=== PATIENT | male | born 1960 | race African-American/Black ===

== ENCOUNTER 2019-12-23 14:45 | Outpatient (RCR) | payer OTHER, SELFPAY ==
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
--- NOTE | 2019-12-03 08:36 | PCPTNOTE ---
Patient did not show up for scheduled appointment this date.
--- NOTE | 2019-12-17 13:36 | PCPTNOTE ---
Patient called at 7:45 am & cancelled scheduled appointment this date due to not being able to make it this morning.
--- NOTE | 2019-12-23 15:05 | PCPTNOTE ---
Patient did not show up for scheduled appointment on 12/18 and 12/23/19. Attempts were made to contact him. Left message regarding repeated no show and cancellation of remaining appt if he does not show for his appt on 12/25/19.
--- NOTE | 2019-12-24 09:28 | PCPTNOTE ---
Attending Provider: Safia Chau, RIG BUILDER Patient:Josafat Calvo Date of :1960 Patient has not returned for any further treatments since 12/11/2019, therefore he will be discharged from therapy at this time. He was a no show or cancel for 4 therapy appointments. The goals have not been achieved due to limited attended therapy visits. Thank you for referring this patient to [facility]. Please review, sign, date and return this discharge summary MINNIE. I have been updated about the patient's current status and I agree with discharge from the above service at this time. Referring Physician Date
== END 2019-12-24 10:22 | disposition home or self-care (01) ==
LOC: ANHPT 14:45
PROVIDERS: Visit Provider Nurse Practitioner Adult Health
DX: M54.16 Radiculopathy, lumbar region (principal)
CPT/HCPCS: 97110; 97112; 97140

== ENCOUNTER 2020-05-05 15:46 | Emergency (ER) | payer OTHER, SELFPAY ==
--- NOTE | ~2020-05-05 | XR_ITS ---
XR chest 2V 05/05/2020 16:41 Indication: Shortness of breath, wheezing and cough. History of emphysema. Procedure: PA and lateral views of the chest Comparison: Comparison to multiple prior studies sequentially, with oldest reviewed study dated 08/30. Findings: Heart size is normal. No focal air space disease, pulmonary edema, pleural effusion or susp ected pneumothorax. No acute osseous abnormality. Impression: 1: No acute cardiopulmonary disease. Reviewed, dictated and finalized at location A. Impression: 1: No acute cardiopulmonary disease.
[2020-05-05 15:59] VITALS: BP 140/92; PULSE 93; RESP 18; TEMP 37.1; O2SAT 97
--- NOTE | 2020-05-05 16:02 | ECG_ITS ---
Measurements Intervals [place] Rate: 92 P: 56 TX: 155 QRS: -7 QRSD: 96 T: 48 QT: 354 QTc: 439 Interpretive Statements SINUS RHYTHM BASELINE ARTIFACT- I, II, AVR, AVL, V4-V6 NORMAL ECG Electronically Signed On 05-05-2020 17:11:24 CDT by Ian Lopez D.O.
[2020-05-05 16:10] LABS: Basophils Absolute Auto 0.1 K/mm3 (0.0-0.1); Basophils Percent Auto 1.1 % (0.2-1.2); Eosinophils Absolute Auto 1.1 K/mm3 (0-0.3); Eosinophils Percent Auto 13.6 % (0-4.4); Hematocrit 43.7 % (42.0-52.0); Hemoglobin 14.5 g/dL (14.0-18.0); Immature Granulocyte Absolute 0.03 K/mm3 (0.00-0.031); Immature Granulocyte Percent A 0.4 % (0-0.5); Lymphocytes Absolute Auto 2.85 K/mm3 (0.9-3.2); Lymphocytes Percent Auto 34.3 % (18.3-44.2); Mean Corpuscular HGB Conc 33.2 g/dl (32-36); Mean Corpuscular Hemoglobin 28.4 pg (26-34); Mean Corpuscular Volume 85.5 fl (80-100); Mean Platelet Volume 9.7 fl (7.4-10.4); Monocytes Absolute Auto 0.9 K/mm3 (0.1-0.6); Monocytes Percent Auto 10.4 % (2.6-8.5); Neutrophils Absolute Auto 3.3 K/mm3 (1.3-6.7); Neutrophils Percent Auto 40.2 % (45.5-73.1); Platelet Count Result 260 k/mm3 (150-375); Red Blood Count 5.11 M/mm3 (4.6-6.20); Red Cell Distribution Width 14.2 % (11.5-14.5); White Blood Count 8.3 K/mm3 (4.5-10.0)
[2020-05-05 16:22] LABS: Blood Urea Nitrogen 10 mg/dL (9-20); Calcium 9.7 mg/dL (8.4-10.2); Carbon Dioxide 24 mmol/L (22-30); Chloride 102 mmol/L (98-107); Estimated CRCL calculation 94 ml/min; Estimated Glomerular Filt Rate > 60; Glucose 111 mg/dL (75-110); Potassium 4.1 mmol/L (3.4-5.0); Sodium 136 mmol/L (137-145)
--- NOTE | 2020-05-05 16:31 | ED.SOB ---
HPI - SOB/Dyspnea General Chief Complaint: Shortness of Breath/Dyspnea Stated Complaint: sob Time Seen by Provider: 05/05/20 16:28 History of Present Illness HPI Narrative: Patient presents for increasing shortness of breath over the last couple days and weeks. He has been diagnosed with emphysema and COPD. He is not yet on home oxygen. He has test scheduled for his leaky valve of his heart, and for sleep apnea in the next couple weeks. He wheezes and coughs on a daily basis. He denies fever chills or sweats. He does not have a sleeping partner but he knows that he snores because he is awoken himself with snoring. He no longer works and says that he is disabled. His shortness of breath is worse when he lies down. He has not been told that he has congestive heart failure, but his med list includes Lasix and Spironolactone. He does have hypertension but not diabetes. MD elicited complaint: shortness of breath and cough Pertinent past history: COPD Onset (ago): week(s) Timing: constant and progressively worsening Severity: severe Exacerbating factors: lying flat Relieving factors: nothing Known history of: COPD Associated symptoms: cough, wheezing, sputum production and orthopnea Related Data Home Medications Medication Instructions Recorded Confirmed acetaminophen-codeine tablet 05/05/20 albuterol sulfate INHALATION 05/05/20 amlodipine 05/05/20 budesonide-formoterol [Symbicort] INHALATION 05/05/20 carvedilol 05/05/20 dextromethorphan-guaifenesin 5 ml PO Q4-6H PRN 05/05/20 fluticasone propionate INTRANASAL 05/05/20 furosemide 05/05/20 gabapentin 05/05/20 hydroxyzine pamoate 05/05/20 ibuprofen 05/05/20 lamotrigine 05/05/20 latanoprost 1 drp OPHTHALMIC (EYE) DAILY 05/05/20 meloxicam [Mobic] 7.5 mg PO DAILY 05/05/20 montelukast mg 05/05/20 nicotine [Nicoderm CQ] 05/05/20 omeprazole 05/05/20 pseudoephedrine-guaifenesin 1 tablet PO BID PRN 05/05/20 [Mucinex D] spironolactone 50 mg PO DAILY 07/07/20 tamsulosin mg PO 05/05/20 triamcinolone acetonide TOPICAL 05/05/20 ziprasidone HCl 05/05/20 Allergies Allergy/AdvReac Type Severity Reaction Status Date / Time lisinopril Allergy Severe ANGIOEDEMA Verified 05/05/20 16:01 Penicillins Allergy Unknown Swelling Verified 05/05/20 16:01 Review of Systems Review of Systems: Narrative: CONSTITUTIONAL: Denies fever, chills, or sweats. EYES: Denies visual changes, redness, or discharge. ENT: Denies rhinorrhea, congestion, sore throat, or otalgia. CARDIOVASCULAR: Denies chest pain, palpitations, or edema. RESPIRATORY: He has cough and dyspnea. GASTROINTESTINAL: Denies abdominal pain, nausea, vomiting, or diarrhea. GENITOURINARY: Denies dysuria or hematuria. SKIN: Denies rash or itching. MUSCULOSKELETAL: Denies back pain, joint pain, or myalgia. NEUROLOGIC: Denies headache, numbness, or weakness. PSYCHIATRIC: Denies anxiety or depression. [facility] Past Medical History Medical History Arthritis Asthma Bronchitis Cardiomyopathy COPD (chronic obstructive pulmonary disease) Glaucoma HTN (hypertension) Surgical History Surgical History History of knee replacement procedure of right knee Social History Social History Smoking status: Current every day smoker Alcohol intake: current Substance use: current Substance use type: marijuana Gender identity (if verbalized by the patient): Male Exam Narrative: Exam Narrative: GENERAL: Well-appearing, well-nourished, and in no acute distress. Charming. HEAD: Normocephalic, atraumatic. EYES: PERRLA and EOMI. ENT: Nares clear, no rhinorrhea or epistaxis. Mucous membranes moist. NECK: Supple. CHEST: Scattered wheezes. No respiratory distress. HEART: Regular rate and rhythm. No murmur heard. Normal peripheral pulses. ABDOMEN: Soft, nontend
[2020-05-05] MEDS: ALBUTEROL SULFATE NEB 2.5 MG/3 ML INH 1.25 MG INHALATION (16:48)
[2020-05-05 16:50] VITALS: PULSE 87; RESP 16
[2020-05-05] MEDS: methylPREDNISolone SOD SUCC 125 MG VIAL IV PUSH (16:51)
[2020-05-05 16:55] VITALS: PULSE 89; RESP 17
[2020-05-05 17:42] VITALS: BP 133/85; PULSE 89; RESP 17; O2SAT 24
[2020-05-05 17:46] LABS: NT Pro B Type Natriuretic Pept 102 PG/ML (5-100); Troponin I < 0.012 ng/mL (0.000-0.034)
[2020-05-05 18:46] VITALS: BP 130/88; PULSE 85; RESP 23; O2SAT 94
== END 2020-05-05 18:58 | disposition home or self-care (01) ==
PROVIDERS: Emergency Provider Emergency Medicine
DX: J44.1 Chronic obstructive pulmonary disease with (acute) exacerbation (principal); F17.200 Nicotine dependence, unspecified, uncomplicated; G47.30 Sleep apnea, unspecified; I38 Endocarditis, valve unspecified; I10 Essential (primary) hypertension; H40.9 Unspecified glaucoma; M19.90 Unspecified osteoarthritis, unspecified site; Z96.651 Presence of right artificial knee joint
CPT/HCPCS: 36415; 71046; 80048; 83880; 84484; 85025; 93005; 94640; 96374; 99284; J2930

== ENCOUNTER 2021-10-02 09:50 | Emergency (ER) | payer OTHER, SELFPAY ==
[2021-10-02 10:02] VITALS: BP 145/87; PULSE 79; RESP 14; TEMP 36.9; O2SAT 98
--- NOTE | 2021-10-02 12:29 | PC.NURSE ---
pt. called for triage no answer.
== END 2021-10-03 01:47 | disposition left against medical advice (07) ==
DX: R06.02 Shortness of breath (principal)
CPT/HCPCS: 99199

== ENCOUNTER 2024-03-01 08:11 | Outpatient (CLI) | payer OTHER, SELFPAY ==
--- NOTE | ~2024-03-01 | CT_ITS ---
CT Scan of the Chest without Contrast: Clinical Indication: Lung cancer screening, nicotine dependence Technique: Contiguous sections were acquired throughout the chest without intravenous contrast. Dose reduction technique was used on this scan by utilizing automated exposure control and iterative recon struction technique. The dose-length product (DLP) was 182.10 mGy-cm. Findings: Questionable fullness of left hilum. No other abnormality seen in the mediastinum identified. There is no evidence of pleural or pericardial effusion. There is minimal diffuse subpleural reticulation. No pulmonary nodule identified. Images through the upper abdomen reveal no abnormalities. There is DISH of the thoracic spine. Impression: Lung RADS 1-S: Negative. 12 month follow-up screening CT advised. Possible fullness of left hilum. Enlarged lymph node or mass lesion not completely excluded, however this could be due to prominent vascular structures. Consider contrast-enhanced chest CT to confirm or exclude abnormal mass lesion/lymph node. Reviewed, dictated and finalized at [facility]. Impression: Lung RADS 1-S: Negative. 12 month follow-up screening CT advised. Possible fullness of left hilum. Enlarged lymph node or mass lesion not complet josh excluded, however this could be due to prominent vascular structures. Consi cristobal contrast-enhanced chest CT to confirm or exclude abnormal mass lesion/lymph node.
--- NOTE | 2024-03-01 14:27 | WPDSIXMINUTE ---
Six Minute Walk Procedure Procedure Performed Pulmonary Stress Test (6 min walk) Six Minute Walk Six Minute Walk: This is a 6 minute walk test. The test was performed and interpreted in accordance with the 2014 ERS/ATS task force guidelines. Findings: The patient's resting room air oxygen saturation measured by pulse oximetry was 95% and heart rate was 95 bpm. Patient ambulated for 366 meters and oxygen saturation remained 95 to 96%. Heart rate at the end of the study was 98 bpm. The patient did not qualify for supplemental oxygen at rest or with ambulation. There are no prior studies for comparison.
--- NOTE | 2024-03-01 14:28 | WPDPFTINT ---
PFT Procedure Performed PFT Procedure Performed Spirometry with Pre/Post Bronchodilator Plethysmography (Lung Vol) Diffusing Cap (DLCO) Flow Vol Loop PFT Interpretation This is a pulmonary function test with pre and post-bronchodilator spirometry, plethysmography and diffusing capacity. The test was performed and results interpreted in accordance with the 2019 and 2005 ATS/ERS Task Force guidelines respectively using the Global Lung Function Initiative-2012 reference equations. Patient demonstrated good effort and cooperation. Reproducibility criteria were met. The quality of the pre bronchodilator spirometry maneuver was Grade B and post bronchodilator spirometry maneuver was Grade B. Findings: Spirometry: The contour the inspiratory and expiratory flow tracing are normal. The pre bronchodilator FVC is 3.45 L, 93% predicted. The pre bronchodilator FEV1 is 2.44 L, 84% predicted. The pre bronchodilator FEV1: FVC ratio 71%. The post bronchodilator FVC is 3.15 L, representing a 9% decrease. The post bronchodilator FEV1 is 2.33 L, representing a 5% decrease. The post bronchodilator FEV1: FVC ratio 74%. Plethysmography: The total lung capacity is 6.43 L, 108% predicted. The functional residual capacity is 2.74 L, 84% predicted. The residual volume is 2.71 L, 131% predicted. Diffusing capacity: The diffusing capacity unadjusted for hemoglobin and carboxyhemoglobin is 20.4, 74% predicted. The diffusing capacity adjusted for alveolar volume is 4.05, 96% predicted. Impression: The spirometry is normal without evidence of an obstructive abnormality. There is no significant improvement after inhaling a single dose of albuterol. The lung volumes are normal. The diffusing capacity is normal. There are no prior studies for comparison
== END 2024-03-01 08:12 | disposition home or self-care (01) ==
LOC: ANHIMG 08:13
PROVIDERS: PCP Nurse Practitioner Family; Visit Provider Physician Assistant
DX: Z12.2 Encounter for screening for malignant neoplasm of respiratory organs (principal); J43.9 Emphysema, unspecified; Z87.891 Personal history of nicotine dependence
CPT/HCPCS: 71271; 94060; 94618; 94726; 94729

== ENCOUNTER 2024-03-04 09:18 | Outpatient (CLI) | payer OTHER, SELFPAY ==
--- NOTE | 2024-03-12 18:30 | WPDHOMESLEEP ---
Sleep Study - Home Unattended Date of Study: 03/04/24 Ordering Provider: CECILIA Coelho Interpreting Provider: Kiki Buitrago, DO Home Sleep Study Type: Watch PAT Height: 1.75 m Weight: 104.326 kg Body Mass Index: 34.0 Neck Circumference (inches): 18.5 [place]: 12 Reason for Sleep Study Daytime hypersomnia Sleep History The patient is a 63-year-old male with COPD, combined systolic and diastolic heart failure, hypertension, bipolar disorder, anxiety, GERD, cardiomyopathy, glaucoma, history of substance use and current tobacco use that had a sleep study ordered by the pulmonary group for evaluation of sleep apnea. The patient frequently awakens from sleep short of breath. He frequently awakens at night with heartburn, belching or cough. He occasionally snores but it is never loud enough others complain. He occasionally has trouble sleeping when he has a cold. He frequently wakes up gasping for air throughout the night. He rarely has breathing problems at night observed by himself or others. He constantly sweats excessively at night. He denies having heart palpitations or irregular heartbeats during the night. He occasionally falls asleep during the day but never while driving. He denies sleep paralysis and cataplexy. He denies having troubles at school or work due to sleepiness. He rarely experiences vivid dreamlike scenes upon awakening or falling asleep. He denies feeling afraid of going to sleep. He rarely has nightmares. He occasionally remembers his dreams. He frequently has thoughts racing through his mind. He frequently feels sad, depressed and anxious. He occasionally has muscular tension. He occasionally notices parts of his body jerk. He occasionally kicks during the night. He denies having crawling and aching feelings in his legs and constantly has leg pain during the night. He goes to bed at 10:00 p.m. on both weekdays and weekends. It takes him 30 minutes to fall asleep. He wakes up 3 times throughout the night to urinate and is able to fall asleep relatively quickly. He wakes up at 5:00 a.m. on both weekdays and weekends. He typically gets 6-1/2 hours of sleep per night. He will stay in bed for 5 minutes after waking up in the morning. He currently lives alone. He denies consuming any caffeinated beverages within 2 hours of bedtime. He denies engaging in physical exercise before bedtime. He will watch television before falling asleep. He will take naps in the afternoon or the evening and they are refreshing. He consumes 3 caffeinated beverages per day. He consumes alcoholic beverages once per week. He currently smokes half a pack of cigarettes per day. He denies recreational drug use. [facility] Past Medical History Medical History Arthritis Asthma Bronchitis Cardiomyopathy COPD (chronic obstructive pulmonary disease) Glaucoma HTN (hypertension) Surgical History Surgical History History of knee replacement procedure of right knee Family History Family History Father Alcoholism Hypertension Heart problem Sibling Alcoholism Hypertension Cancer Mother Cancer Hypertension Grandparent Diabetes mellitus Hypertension Heart problem Other Family history of malignant neoplasm Social History Social History Smoking packs per day: 0.50 Smoking cigarettes per day: 10.0 Smoking status: Current every day smoker Alcohol intake: current Substance use: current Substance use type: marijuana Gender identity (if verbalized by the patient): Male Medications Home Medications Medication Instructions Recorded Confirmed Type latanoprost 0.005 % eye drops 1 drp ophthalmic (eye) DAILY 05/05/20 03/11/24 History alfuzosin 10 mg tablet
[2024-03-12 18:36] VITALS: BMI 34.0
== END 2024-03-05 07:30 | disposition home or self-care (01) ==
LOC: ANHCSM 09:20
PROVIDERS: PCP Nurse Practitioner Family; Visit Provider Physician Assistant
DX: G47.10 Hypersomnia, unspecified (principal); J43.9 Emphysema, unspecified; G47.33 Obstructive sleep apnea (adult) (pediatric)
CPT/HCPCS: 95800

== ENCOUNTER 2024-04-17 09:58 | Outpatient (CLI) | payer OTHER, SELFPAY ==
--- NOTE | ~2024-04-17 | CT_ITS ---
EXAMINATION:CT diagnostic chest w con DATE: 04/17/2024 10:30 INDICATION: Left hilar mass. Personal history of nicotine dependence. TECHNIQUE: Computed tomography (CT) of the chest was performed with 75 mL Omnipaque 350 intravenous c ontrast. Automated exposure control and iterative reconstruction technique were employed. The dose-le ngth product (DLP) was 489.36 mGy-cm. COMPARISON: Chest CT 03/01/2024 FINDINGS: There is mild emphysema. There is chronic peripheral septal thickening in the lungs. No bro nchiectasis or honeycombing. No pleural effusion. The heart size is normal. There are coronary artery calcifications. No pericardial effusion. There is mediastinal and bilateral hilar lymphadenopathy. F or example, a left hilar juan mass measures 4.6 x 2.6 cm. There is mass effect on the pulmonary lenny suzette at the left hilum. Calcifications in the liver and spleen are consistent with old granulomatous disease. There is a 10 mm cyst in the liver. There is a 3.4 cm cyst in left kidney. There is mild mayda ateral gynecomastia. There are old healed left rib fractures. There is severe mid thoracic spondylosi s. There are bridging endplate osteophytes at multiple levels in the spine, consistent with diffuse i diopathic skeletal hyperostosis (DISH). IMPRESSION: 1. Bilateral hilar and mediastinal lymphadenopathy, consistent with metastatic disease. Reviewed, dictated and finalized at location A.
== END 2024-04-17 09:59 | disposition home or self-care (01) ==
PROVIDERS: PCP Family Medicine Adolescent Medicine; Visit Provider Physician Assistant
DX: R93.89 Abnormal findings on diagnostic imaging of other specified body structures (principal); Z87.891 Personal history of nicotine dependence; R59.0 Localized enlarged lymph nodes
CPT/HCPCS: 71260; Q9967

== ENCOUNTER 2024-05-30 08:04 | Outpatient (CLI) | payer OTHER, SELFPAY ==
--- NOTE | 2024-05-30 08:17 | ECHO_ITS ---
Patient Info Name: Josafat Calvo Age: 63 years : 1960 Gender: Male Ht: 69 in Wt: 223 lbs BSA: 2.25 m2 HR: 78 bpm BP: 139 / 92 mmHg Technical Quality: Good Exam Date: 05/30/2024 8:30 AM Exam Location: Echo Lab Patient Status: Outpatient Admit Date: 05/30/2024 Staff Ordering Physician: Ian Lopez DO Portal Administrator: David Mallory RDCS Attending Provider: Ian Lopez DO Referring Physician: John HAMILTON; Exam Type: CA echo doppler color flow Study Info Indications I34.0 - Nonrheumatic mitral (valve) insufficiency Complete two-dimensional, color flow and Doppler transthoracic echocardiogram is performed. Summary 1. Complete two-dimensional, color flow and Doppler transthoracic echocardiogram is performed. 2. Left ventricular chamber dimension is normal. 3. There is mild concentric increased left ventricular wall thickness. 4. Left ventricular systolic function is moderately globally reduced, estimated at 40-45%. 5. The left ventricular diastolic function is grade I diastolic dysfunction. 6. E/e' 9 is minimally elevated. 7. Global longitudinal strain is abnormal at -12.6%. 8. Left atrial chamber dimension is moderately enlarged. 9. There is mild aortic valve sclerosis. 10. There is moderate mitral valve regurgitation. 11. No pulmonary hypertension, estimated pulmonary arterial systolic pressure is 20 mmHg. Left Ventricle E/e' 9 is minimally elevated. Left ventricular systolic function is moderately globally reduced, estimated at 40-45%. Global longitudinal strain is abnormal at -12.6%. Left ventricular chamber dimension is normal. There is mild concentric increased left ventricular wall thickness. The left ventricular diastolic function is grade I diastolic dysfunction. Right Ventricle Right ventricular systolic function is normal and with normal TAPSE 2.0 cm. Right ventricular chamber dimension is normal. Left Atria Left atrial chamber dimension is moderately enlarged. Right Atria Right atrial chamber dimension is normal. Aortic Valve The aortic valve is trileaflet. There is mild aortic valve sclerosis. There is no aortic valve stenosis. There is no aortic valve regurgitation. Pulmonic Valve There is no pulmonic regurgitation. Mitral Valve There is no mitral valve stenosis. There is moderate mitral valve regurgitation. Tricuspid Valve There is no tricuspid valve regurgitation. No pulmonary hypertension, estimated pulmonary arterial systolic pressure is 20 mmHg. Pericardium/Pleural There is no pericardial effusion. Inferior Vena Cava Normal inferior vena cava with >50% collapse upon inspiration consistent with normal right atrial pressure, 5 mmHg. Aorta The aortic root size at the sinus of Valsalva is normal. Left Ventricular Outflow Tract Name Value Normal LVOT 2D LVOT Diameter 2.1 cm LVOT Doppler LVOT Peak Gradient 4 mmHg LVOT Mean Gradient 2 mmHg LVOT VTI 20 cm LVOT VTI/AV VTI Ratio 0.8 LVOT Stroke Volume 67 ml LVOT CO 5.3 l/min LVOT CI 2.3 l/min/m
== END 2024-05-30 08:05 | disposition home or self-care (01) ==
LOC: ANHCARD 08:05
PROVIDERS: PCP Family Medicine Adolescent Medicine; Visit Provider Internal Medicine Cardiovascular Disease
DX: I34.0 Nonrheumatic mitral (valve) insufficiency (principal)
CPT/HCPCS: 93306

== ENCOUNTER 2024-09-12 03:45 | Inpatient (IN) | payer OTHER, SELFPAY ==
[2024-09-12] VITALS (36 sets, daily range): BP systolic 117–178; BP diastolic 80–106; PULSE 80–144; RESP 15–34; TEMP 36.8; O2SAT 94–100
--- NOTE | ~2024-09-12 | CT_ITS ---
Clinical Indication: Shortness of breath, recent chemotherapy CT Scan of the Chest with Contrast: Technique: Contiguous sections were acquired throughout the chest after intravenous administration of 100 cc of Omnipaque 350. Dose reduction technique was used on this scan by utilizing automated expos ure control and iterative reconstruction technique. The dose-length product (DLP) was 570.70 mGy-cm. COMPARISON: 04/17/2024 Findings: There is no filling defect in the pulmonary arterial tree to suggest pulmonary embolus. There is no e vidence of aortic dissection or aneurysm. No pericardial effusion. No right pleural effusion. Small left pleural effusion present. There is ill-defined soft tissue mass at the left hilar region, encasing the central pulmonary vascul ar tree and narrowing these vessels, especially the left upper lobe pulmonary artery branches central ly. Precise delineation of the mass is difficult, as there is also near complete, dense consolidation /atelectasis of the left upper lobe, sparing a small portion of the lingula. There is marked narrowin g of the left upper lobe bronchus. There is patchy groundglass airspace disease throughout the right lung, there is a mild interstitial thickening. Images through the upper abdomen reveal no abnormalities. Impression: No evidence of pulmonary embolus, aortic dissection, or aortic aneurysm. Ill-defined soft tissue neoplastic mass at the left perihilar region, encasing and narrowing central left pulmonary arterial tree, especially left upper lobe branches. Precise delineation of the mass is difficult, but is probably at least stable, if not increased in size from prior exam, possibly measu ring up to approximately 6.3 x 4.3 cm in transverse dimensions. Near-complete dense consolidation of the left upper lobe, compatible with postobstructive atelectasis and/or pneumonia. There is encasement and marked narrowing/occlusion of the left upper lobe bronchus by the central soft tissue mass. Patchy groundglass airspace disease throughout the right lung with interstitial thickening. Findings could reflect pneumonia, pulmonary edema, or possibly drug reaction. Correlate clinically. Small left pleural effusion. Reviewed, dictated and finalized at location M. [employer] Impression: No evidence of pulmonary embolus, aortic dissection, or aortic aneurysm. Ill-defined soft tissue neoplastic mass at the left perihilar region, encasing and narrowing central left pulmonary arterial tree, especially left upper lobe branches. Precise delineation of the mass is difficult, but is probably at leas t stable, if not increased in size from prior exam, possibly measuring up to ap proximately 6.3 x 4.3 cm in transverse dimensions. Near-complete dense consolidation of the left upper lobe, compatible with posto bstructive atelectasis and/or pneumonia. There is encasement and marked narrowi ng/occlusion of the left upper lobe bronchus by the central soft tissue mass. Patchy groundglass airspace disease throughout the right lung with interstitial thickening. Findings could reflect pneumonia, pulmonary edema, or possibly kena g reaction. Correlate clinically. Small left pleural effusion.
--- NOTE | ~2024-09-12 | XR_ITS ---
Portable chest x-ray Comparison: 05/05/2020 Clinical History: Shortness of breath, on chemotherapy for lung cancer Findings: There is left perihilar consolidation. Minimal haziness in the lungs are otherwise. Cardi omediastinal silhouette is stable. Bones and soft tissues are unremarkable. Impression: Left perihilar consolidation. Given history, this could reflect neoplastic disease. Minimal bilateral haziness could reflect pneumonia or postradiation change. Reviewed, dictated and finalized at location M. KEN HANGER Impression: Left perihilar consolidation. Given history, this could reflect neoplastic dise ase. Minimal bilateral haziness could reflect pneumonia or postradiation change.
--- NOTE | 2024-09-12 03:54 | ECG_ITS ---
Test Date: 2024-09-12 03:59:57 Measurements Intervals [place] Rate: 84 P: 24 ME: 145 QRS: -13 QRSD: 127 T: 54 QT: 415 QTc: 493 Interpretive Statements SINUS RHYTHM POSSIBLE LEFT ATRIAL ENLARGEMENT POSSIBLE LEFT VENTRICULAR HYPERTROPHY BORDERLINE ECG No previous ECG available for comparison Electronically Signed On 09-12-2024 05:27:10 PUBLISHING MANAGER by Ian Lopez D.O.
[2024-09-12 04:04] LABS: Basophils Percent Auto 0.5 % (0.2-1.2); Eosinophils Percent Auto 1.1 % (0-4.4); Hematocrit 29.2 % (42.0-52.0); Hemoglobin 9.8 g/dL (14.0-18.0); Immature Granulocyte Absolute 0.01 K/mm3 (0.00-0.031); Immature Granulocyte Percent A 0.5 % (0-0.5); Lymphocytes Absolute Auto 0.93 K/mm3 (0.9-3.2); Lymphocytes Percent Auto 49.7 % (18.3-44.2); Mean Corpuscular HGB Conc 33.6 g/dl (32-36); Mean Corpuscular Hemoglobin 27.7 pg (26-34); Mean Corpuscular Volume 82.5 fl (80-100); Mean Platelet Volume 10.1 fl (7.4-10.4); Monocytes Absolute Auto 0.1 K/mm3 (0.1-0.6); Monocytes Percent Auto 7.5 % (2.6-8.5); Neutrophils Absolute Auto 0.8 K/mm3 (1.3-6.7); Neutrophils Percent Auto 40.7 % (45.5-73.1); Nucleated Red Blood Cells Perc 1.1 % (0.0-0.2); Platelet Count Result 121 k/mm3 (150-375); Red Blood Count 3.54 M/mm3 (4.6-6.20); Red Cell Distribution Width 16.2 % (11.5-14.5)
[2024-09-12 04:11] LABS: White Blood Count 1.9 K/mm3 (4.5-10.0)
[2024-09-12 04:15] LABS: Alanine Aminotransferase 40 U/L (6-50); Albumin Level 3.4 g/dL (3.5-5.1); Alkaline Phosphatase 145 U/L (38-126); Anion Gap 9 mmol/L (4-12); Aspartate Amino Transferase 73 U/L (17-59); Bilirubin,Total 0.2 mg/dL (0.2-1.3); Blood Urea Nitrogen 11 mg/dL (9-20); Calcium 8.9 mg/dL (8.4-10.2); Carbon Dioxide 24 mmol/L (22-30); Chloride 101 mmol/L (98-107); Estimated CRCL calculation 103 ml/min; Estimated Glomerular Filt Rate > 60; Glucose 148 mg/dL (65-110); Potassium 4.1 mmol/L (3.4-5.0); Sodium 134 mmol/L (137-145)
[2024-09-12] MEDS: IPRATROPIUM 0.5 MG/ALBUTEROL SULFATE 2.5 MG AMPUL.NEB 3 ML INHALATION ×4 (04:25→21:24)
[2024-09-12 04:51] LABS: Lactic Acid Reflex 2.1 mmol/L (0.7-2.0)
[2024-09-12 05:18] LABS: Influenza A QL RT-PCR Negative (Negative); Influenza B QL RT-PCR Negative (Negative); RSV RNA, RT-PCR Negative (Negative); SARS-CoV-2 RNA PCR Negative (Negative)
--- NOTE | 2024-09-12 05:46 | ED_ITS ---
HPI - General Adult General Chief complaint: Asthma <Marshall Gaming MD - Last Filed: 09/13/24 06:58> Stated complaint: SOB; Hx ASTHMA & LUNG CA <Marshall Gaming MD - Last Filed: 09/13/24 06:58> Time Seen by Provider: 09/12/24 03:54 <Marshall Gaming MD - Last Filed: 09/13/24 06:58> History of Present Illness HPI narrative: patient is a 63-year-old gentleman who presents emergency department chief complaint of shortness of breath. Patient has history of lung cancer also has history of COPD is followed [place] and is undergoing chemotherapy the patient states that he woke up from sleep having shortness of breath this evening reports that he has had no fever reports no cough <Marshall Gaming MD - Last Filed: 09/13/24 06:58> Related Data Home medications: Home Medications Medication Instructions Recorded Confirmed latanoprost 0.005 % eye drops 1 drp ophthalmic (eye) DAILY 05/05/20 09/13/24 alfuzosin 10 mg tablet,extended 10 mg PO DAILY 12/12/23 09/13/24 release 24 hr aspirin 81 mg tablet,delayed 81 mg PO DAILY 12/12/23 09/13/24 release (Adult Aspirin Regimen) atorvastatin 40 mg tablet 40 mg PO DAILY 12/12/23 09/13/24 buspirone 7.5 mg tablet 7.5 mg PO BID 12/12/23 09/13/24 carvedilol 12.5 mg tablet 12.5 mg PO Q12H 12/12/23 09/13/24 eplerenone 25 mg tablet 25 mg PO DAILY 12/12/23 09/13/24 hydroxyzine pamoate 100 mg capsule 100 mg PO Q12H 12/12/23 09/13/24 lamotrigine 100 mg tablet 100 mg PO DAILY 12/12/23 09/13/24 loratadine 10 mg tablet 10 mg PO DAILY 12/12/23 09/13/24 ziprasidone HCl 80 mg capsule 80 mg PO BID 12/12/23 09/13/24 fluticasone furoate 27.5 1 spray intranasal DAILY PRN 04/30/24 09/13/24 mcg/actuation nasal Congestion spray,suspension tadalafil 20 mg tablet 20 mg PO DAILY PRN Erectile 04/30/24 09/13/24 Dysfunction acetaminophen 500 mg tablet 500 mg PO Q6H PRN Pain (Scale 09/13/24 09/13/24 Score 1-3) morphine 30 mg tablet,extended 30 mg PO Q12H 09/13/24 09/13/24 release ondansetron HCl 8 mg tablet 8 mg PO BID PRN Nausea And Vomiting 09/13/24 09/13/24 oxycodone 5 mg tablet 10 mg PO Q4H PRN Pain (Scale Score 09/13/24 09/13/24 7-10) <Marshall Gaming MD - Last Filed: 09/13/24 06:58> Allergies/adverse reactions: Allergies Allergy/AdvReac Type Severity Reaction Status Date / Time lisinopril Allergy Severe ANGIOEDEMA Verified 09/13/24 10:54 Penicillins Allergy Unknown Swelling Verified 09/13/24 10:54 <Marshall Gaming MD - Last Filed: 09/13/24 06:58> Review of Systems Review of Systems: A 10 system review of systems was completed on the patient and is negative except for what is stated in the HPI. Nursing and ancillary documentation was reviewed. <Marshall Gaming MD - Last Filed: 09/13/24 06:58> [facility], [facility] Past Medical History Medical History: Medical History Arthritis Asthma Bronchitis Cardiomyopathy COPD (chronic obstructive pulmonary disease) Glaucoma HTN (hypertension) <Marshall Gaming MD - Last Filed: 09/13/24 06:58> Surgical History Surgical History: Surgical History History of knee replacement procedure of right knee <Marshall Gaming MD - Last Filed: 09/13/24 06:58> Family History Family History: Family History (Updated 09/13/24 @ 11:22 by Manas Mccall RN) Father Alcoholism Heart problem Hypertension Sibling Alcoholism Cancer Hypertension Mother Cancer Hypertension Grandparent Diabetes mellitus Heart problem Hypertension Sibling Cancer Hypertension <Marshall Gaming MD - Last Filed: 09/13/24 06:58> Social History Social History: Social History Smoking packs per day: 1 Smoking cigarettes per day: 20.0 Years smoked: 40 Smoking pack-years: 40.00 Smoking status: Current every day smoker Tobacco type: cigarettes Alcohol intake: never Substance use: current Substance use type: marijuana Do You Feel Safe in your Home?: Yes Lack of Transportation: No Lack of Food: Never True Current Housing: I Have Housing Concerned About Future Housing: No Difficulty Paying Gas/Electric Bills: No Difficulty Paying for Meds: No Currently Unemployed: No Education: Associate Degree Difficulty w/ Childcare or Family Care: No Gender identity (if verbalized by the patient): Male Spiritual care concerns: No <Marshall Gaming MD - Last Filed: 09/13/24 06:58> Exam Narrative: GENERAL: Well-appearing, well-nourished, and in no acute distress. HEAD: Normocephalic, atraumatic. EYES: PERRLA and EOMI. ENT: Nares clear, no rhinorrhea or epistaxis. Mucous membranes moist. NECK: Supple. CHEST: Clear to auscultation. No respiratory distress. HEART: Regular rate and rhythm. No murmur heard. Normal peripheral pulses. ABDOMEN: Soft, nontender, nondistended, normal active bowel sounds. EXTREMITIES: Normal range of motion. No edema. SKIN: Warm, dry, no rash. NEURO: No focal deficits. Alert and oriented x3. PSYCH: Normal mood and affect. <Marshall Gaming MD - Last Filed: 09/13/24 06:58> Course Course Emergency Course: (Downing) 09/12/24 [id number]: Patient was requesting home antihypertensive medications as well as a laxative. while attempting to obtain his medication list to verify, he was noted to have a fast heart rate in the 140s and 150s. EKG was obtained and patient was noted to be in atrial fibrillation with rapid ventricular response. Given that we learned that he was on carvedilol, 5 mg of metoprolol IV push was given and patient's heart rate normalized. patient was given a 1 time dose of his home medications, carvedilol 12.5 and losartan 50 mg in addition to starting with a bowel regimen of stool softeners via Metamucil and MiraLax. Pharmacy called to discuss that patient had tested negative for MRSA and they recommended discontinuing the vancomycin. We discussed that he has a postobstructive pneumonia and he is leukopenic and thus the decision was made to give doxycycline p.o. to cover for atypicals. Went to bedside to evaluate patient and inform him of these updates. he verifies understanding. He states he had just received another breathing treatment approximately 2 hours prior as these have been scheduled. No other acute events during shift <Malu Downing MD - Last Filed: 09/14/24 10:32> Vital Signs Vital signs: Vital Signs Temperature 98.2 F 09/12/24 03:46 Pulse Rate 85 09/12/24 03:46 Respiratory Rate 23 H 09/12/24 03:46 Blood Pressure 139/91 H 09/12/24 03:46 Pulse Oximetry 100 09/12/24 03:46 Temperature 97.1 F L 09/14/24 04:39 Pulse Rate 80 09/14/24 08:31 Respiratory Rate 20 09/14/24 07:43 Blood Pressure 153/81 H 09/14/24 04:39 Pulse Oximetry 91 09/14/24 07:36 Oxygen Delivery Room Air 09/14/24 07:36 Fraction of Inspired Oxygen 21 09/14/24 07:36 <Marshall Gaming MD - Last Filed: 09/13/24 06:58> Vital Signs Temperature 98.2 F 09/12/24 03:46 Pulse Rate 85 09/12/24 03:46 Respiratory Rate 23 H 09/12/24 03:46 Blood Pressure 139/91 H 09/12/24 03:46 Pulse Oximetry 100 09/12/24 03:46 Temperature 97.1 F L 09/14/24 04:39 Pulse Rate 80 09/14/24 08:31 Respiratory Rate 20 09/14/24 07:43 Blood Pressure 153/81 H 09/14/24 04:39 Pulse Oximetry 91 09/14/24 07:36 Oxygen Delivery Room Air 09/14/24 07:36 Fraction of Inspired Oxygen 21 09/14/24 07:36 <Malu Downing MD - Last Filed: 09/14/24 10:32> Medical Decision Making MDM Narrative Medical decision making narrative: differential diagnosis includes pneumonia, worsening mass, pulmonary embolism, asthma, COPD CTA of the chest showed No evidence of pulmonary embolus, aortic dissection, or aortic aneurysm. Ill-defined soft tissue neoplastic mass at the left perihilar region, encasing and narrowing central left pulmonary arterial tree, especially left upper lobe branches. Precise delineation of the mass is difficult, but is probably at least stable, if not increased in size from prior exam, possibly measuring up to approximately 6.3 x 4.3 cm in transverse dimensions. Near-complete dense consolidation of the left upper lobe, compatible with postobstructive atelectasis and/or pneumonia. There is encasement and marked narrowing/occlusion of the left upper lobe bronchus by the central soft tissue mass. Patchy groundglass airspace disease throughout the right lung with interstitial thickening. Findings could reflect pneumonia, pulmonary edema, or possibly drug reaction. Correlate clinically. Small left pleural effusion laboratory studies showed a white count of 1.9 with a absolute neutrophil count of 0.8 lactic acid was 2.1 COVID flu and RSV are negative the case was discussed with Dr. Tang of the oncology service at [place] and the patient was accepted to the oncology service The patient has been waiting for a bed at [facility] and we are unsure of exactly how long it will take they have said this could be several days on the most recent Update. we will admit the patient for observation locally until a bed becomes available <Marshall Gaming MD - Last Filed: 09/13/24 06:58> Vital Signs Vital Signs: Vital Signs Temperature 98.2 F 09/12/24 03:46 Pulse Rate 85 09/12/24 03:46 Respiratory Rate 23 H 09/12/24 03:46 Blood Pressure 139/91 H 09/12/24 03:46 Pulse Oximetry 100 09/12/24 03:46 Temperature 97.1 F L 09/14/24 04:39 Pulse Rate 80 09/14/24 08:31 Respiratory Rate 20 09/14/24 07:43 Blood Pressure 153/81 H 09/14/24 04:39 Pulse Oximetry 91 09/14/24 07:36 Oxygen Delivery Room Air 09/14/24 07:36 Fraction of Inspired Oxygen 21 09/14/24 07:36 <Marshall Gaming MD - Last Filed: 09/13/24 06:58> Vital Signs Temperature 98.2 F 09/12/24 03:46 Pulse Rate 85 09/12/24 03:46 Respiratory Rate 23 H 09/12/24 03:46 Blood Pressure 139/91 H 09/12/24 03:46 Pulse Oximetry 100 09/12/24 03:46 Temperature 97.1 F L 09/14/24 04:39 Pulse Rate 80 09/14/24 08:31 Respiratory Rate 20 09/14/24 07:43 Blood Pressure 153/81 H 09/14/24 04:39 Pulse Oximetry 91 09/14/24 07:36 Oxygen Delivery Room Air 09/14/24 07:36 Fraction of Inspired Oxygen 21 09/14/24 07:36 <Malu Downing MD - Last Filed: 09/14/24 10:32> Lab Data Result diagrams: 09/14/24 05:05 09/14/24 05:05 <Marshall Gaming MD - Last Filed: 09/13/24 06:58> Labs: Lab Results 09/12/24 09/12/24 09/12/24 Range/Units 03:56 03:57 04:28 WBC 1.9 L* (4.5-10.0) K/mm3 RBC 3.54 L (4.6-6.20) M/mm3 Hgb 9.8 L D (14.0-18.0) g/dL Hct 29.2 L (42.0-52.0) % MCV 82.5 (80-100) fl MCH 27.7 (26-34) pg MCHC 33.6 (32-36) g/dl RDW 16.2 H (11.5-14.5) % Plt Count 121 L D (150-375) k/mm3 MPV 10.1 (7.4-10.4) fl Immature Gran % (Auto) 0.5 (0-0.5) % Neut % (Auto) 40.7 L (45.5-73.1) % Lymph % (Auto) 49.7 H (18.3-44.2) % [place] % (Auto) 7.5 (2.6-8.5) % Eos % (Auto) 1.1 (0-4.4) % Baso % (Auto) 0.5 (0.2-1.2) % Lymph # (Auto) 0.93 (0.9-3.2) K/mm3 [place] # (Auto) 0.1 (0.1-0.6) K/mm3 Eos # (Auto) 0.0 (0-0.3) K/mm3 Baso # (Auto) 0.0 (0.0-0.1) K/mm3 Abs Immat Gran (auto) 0.01 (0.00-0.031) K/mm3 Absolute Neuts (auto) 0.8 L (1.3-6.7) K/mm3 Absolute Nucleated RBC 0.020 H (0.0-0.012) K/mm3 Nucleated RBC % 1.1 H (0.0-0.2) % PT 16.0 H (11.1-14.7) Seconds INR 1.2 APTT 26.6 (22.3-36.8) Seconds Sodium 134 L (137-145) mmol/L Potassium 4.1 (3.4-5.0) mmol/L Chloride 101 (98-107) mmol/L Carbon Dioxide 24 (22-30) mmol/L Anion Gap 9 (4-12) mmol/L BUN 11 (9-20) mg/dL Creatinine 0.70 (0.7-1.3) mg/dL Estim Creat Clear Calc 103 ml/min Estimated GFR > 60 (59 - ) Glucose 148 H (65-110) mg/dL Lactic Acid 2.1 H (0.7-2.0) mmol/L Calcium 8.9 (8.4-10.2) mg/dL Total Bilirubin 0.2 (0.2-1.3) mg/dL AST 73 H (17-59) U/L ALT 40 (6-50) U/L Alkaline Phosphatase 145 H (38-126) U/L Troponin I < 0.012 (0.000-0.034) ng/mL NT-Pro-B Natriuret Pep 521 H (19.9-100) pg/mL Total Protein 7.0 (6.3-8.2) g/dL Albumin 3.4 L (3.5-5.1) g/dL Urine Color (Yellow) Urine Appearance (Clear) Urine pH (5.0-9.0) Ur Specific [place] (1.001-1.035) Urine Protein (Negative) mg/dL Urine Glucose (UA) (Negative) mg/dL Urine Ketones (Negative) mg/dL Ur Blood (Man) (Negative) Urine Nitrate (Negative) Urine Bilirubin (Negative) Urine Urobilinogen (<2.0) mg/dL Leukocyte Esterase Rfl (Negative) LOU/UL Nasal MRSA (PCR) (NOT DETECTE) Influenza A (RT-PCR) Negative (Negative) Influenza B (RT-PCR) Negative (Negative) RSV (RT-PCR) Negative (Negative) SARS-CoV-2 RNA (RT-PCR) Negative (Negative) 09/12/24 09/12/24 09/13/24 Range/Units 07:16 07:49 06:31 WBC 1.5 L* (4.5-10.0) K/mm3 RBC 3.36 L (4.6-6.20) M/mm3 Hgb 9.2 L (14.0-18.0) g/dL Hct 27.3 L (42.0-52.0) % MCV 81.3 (80-100) fl MCH 27.4 (26-34) pg MCHC 33.7 (32-36) g/dl RDW 16.1 H (11.5-14.5) % Plt Count 110 L (150-375) k/mm3 MPV 9.1 (7.4-10.4) fl Immature Gran % (Auto) 0.0 (0-0.5) % Neut % (Auto) 46.3 (45.5-73.1) % Lymph % (Auto) 34.0 (18.3-44.2) % [place] % (Auto) 15.6 H (2.6-8.5) % Eos % (Auto) 2.7 (0-4.4) % Baso % (Auto) 1.4 H (0.2-1.2) % Lymph # (Auto) 0.50 L (0.9-3.2) K/mm3 [place] # (Auto) 0.2 (0.1-0.6) K/mm3 Eos # (Auto) 0.0 (0-0.3) K/mm3 Baso # (Auto) 0.0 (0.0-0.1) K/mm3 Abs Immat Gran (auto) 0.00 (0.00-0.031) K/mm3 Absolute Neuts (auto) 0.7 L (1.3-6.7) K/mm3 Absolute Nucleated RBC 0.020 H (0.0-0.012) K/mm3 Nucleated RBC % 1.4 H (0.0-0.2) % PT (11.1-14.7) Seconds INR APTT (22.3-36.8) Seconds Sodium 132 L (137-145) mmol/L Potassium 4.0 (3.4-5.0) mmol/L Chloride 101 (98-107) mmol/L Carbon Dioxide 29 (22-30) mmol/L Anion Gap 2 L (4-12) mmol/L BUN 7 L (9-20) mg/dL Creatinine 0.60 L (0.7-1.3) mg/dL Estim Creat Clear Calc 119 ml/min Estimated GFR > 60 (59 - ) Glucose 99 (65-110) mg/dL Lactic Acid 2.4 H 0.9 (0.7-2.0) mmol/L Calcium 8.7 (8.4-10.2) mg/dL Total Bilirubin 0.3 (0.2-1.3) mg/dL AST 23 (17-59) U/L ALT 33 (6-50) U/L Alkaline Phosphatase 153 H (38-126) U/L Troponin I 0.015 D < 0.012 (0.000-0.034) ng/mL NT-Pro-B Natriuret Pep 1770 H (19.9-100) pg/mL Total Protein 6.0 L (6.3-8.2) g/dL Albumin 3.1 L (3.5-5.1) g/dL Urine Color Yellow (Yellow) Urine Appearance Clear (Clear) Urine pH 6.0 (5.0-9.0) Ur Specific [place] 1.021 (1.001-1.035) Urine Protein Negative (Negative) mg/dL Urine Glucose (UA) Negative (Negative) mg/dL Urine Ketones Negative (Negative) mg/dL Ur Blood (Man) Negative (Negative) Urine Nitrate Negative (Negative) Urine Bilirubin Negative (Negative) Urine Urobilinogen 0.2 (<2.0) mg/dL Leukocyte Esterase Rfl Negative (Negative) LOU/UL Nasal MRSA (PCR) Not detected (NOT DETECTE) Influenza A (RT-PCR) (Negative) Influenza B (RT-PCR) (Negative) RSV (RT-PCR) (Negative) SARS-CoV-2 RNA (RT-PCR) (Negative) <Marshall Gaming MD - Last Filed: 09/13/24 06:58> Lab Results 09/12/24 09/12/24 09/12/24 Range/Units 03:56 03:57 04:28 WBC 1.9 L* (4.5-10.0) K/mm3 RBC 3.54 L (4.6-6.20) M/mm3 Hgb 9.8 L D (14.0-18.0) g/dL Hct 29.2 L (42.0-52.0) % MCV 82.5 (80-100) fl MCH 27.7 (26-34) pg MCHC 33.6 (32-36) g/dl RDW 16.2 H (11.5-14.5) % Plt Count 121 L D (150-375) k/mm3 MPV 10.1 (7.4-10.4) fl Immature Gran % (Auto) 0.5 (0-0.5) % Neut % (Auto) 40.7 L (45.5-73.1) % Lymph % (Auto) 49.7 H (18.3-44.2) % [place] % (Auto) 7.5 (2.6-8.5) % Eos % (Auto) 1.1 (0-4.4) % Baso % (Auto) 0.5 (0.2-1.2) % Lymph # (Auto) 0.93 (0.9-3.2) K/mm3 [place] # (Auto) 0.1 (0.1-0.6) K/mm3 Eos # (Auto) 0.0 (0-0.3) K/mm3 Baso # (Auto) 0.0 (0.0-0.1) K/mm3 Abs Immat Gran (auto) 0.01 (0.00-0.031) K/mm3 Absolute Neuts (auto) 0.8 L (1.3-6.7) K/mm3 Absolute Nucleated RBC 0.020 H (0.0-0.012) K/mm3 Nucleated RBC % 1.1 H (0.0-0.2) % PT 16.0 H (11.1-14.7) Seconds INR 1.2 APTT 26.6 (22.3-36.8) Seconds Sodium 134 L (137-145) mmol/L Potassium 4.1 (3.4-5.0) mmol/L Chloride 101 (98-107) mmol/L Carbon Dioxide 24 (22-30) mmol/L Anion Gap 9 (4-12) mmol/L BUN 11 (9-20) mg/dL Creatinine 0.70 (0.7-1.3) mg/dL Estim Creat Clear Calc 103 ml/min Estimated GFR > 60 (59 - ) Glucose 148 H (65-110) mg/dL Lactic Acid 2.1 H (0.7-2.0) mmol/L Calcium 8.9 (8.4-10.2) mg/dL Total Bilirubin 0.2 (0.2-1.3) mg/dL AST 73 H (17-59) U/L ALT 40 (6-50) U/L Alkaline Phosphatase 145 H (38-126) U/L Troponin I < 0.012 (0.000-0.034) ng/mL NT-Pro-B Natriuret Pep 521 H (19.9-100) pg/mL Total Protein 7.0 (6.3-8.2) g/dL Albumin 3.4 L (3.5-5.1) g/dL Urine Color (Yellow) Urine Appearance (Clear) Urine pH (5.0-9.0) Ur Specific [place] (1.001-1.035) Urine Protein (Negative) mg/dL Urine Glucose (UA) (Negative) mg/dL Urine Ketones (Negative) mg/dL Ur Blood (Man) (Negative) Urine Nitrate (Negative) Urine Bilirubin (Negative) Urine Urobilinogen (<2.0) mg/dL Leukocyte Esterase Rfl (Negative) LOU/UL Nasal MRSA (PCR) (NOT DETECTE) Influenza A (RT-PCR) Negative (Negative) Influenza B (RT-PCR) Negative (Negative) RSV (RT-PCR) Negative (Negative) SARS-CoV-2 RNA (RT-PCR) Negative (Negative) 11/14/24 11/14/24 11/15/24 Range/Units 07:16 07:49 06:31 WBC 1.5 L* (4.5-10.0) K/mm3 RBC 3.36 L (4.6-6.20) M/mm3 Hgb 9.2 L (14.0-18.0) g/dL Hct 27.3 L (42.0-52.0) % MCV 81.3 (80-100) fl MCH 27.4 (26-34) pg MCHC 33.7 (32-36) g/dl RDW 16.1 H (11.5-14.5) % Plt Count 110 L (150-375) k/mm3 MPV 9.1 (7.4-10.4) fl Immature Gran % (Auto) 0.0 (0-0.5) % Neut % (Auto) 46.3 (45.5-73.1) % Lymph % (Auto) 34.0 (18.3-44.2) % [place] % (Auto) 15.6 H (2.6-8.5) % Eos % (Auto) 2.7 (0-4.4) % Baso % (Auto) 1.4 H (0.2-1.2) % Lymph # (Auto) 0.50 L (0.9-3.2) K/mm3 [place] # (Auto) 0.2 (0.1-0.6) K/mm3 Eos # (Auto) 0.0 (0-0.3) K/mm3 Baso # (Auto) 0.0 (0.0-0.1) K/mm3 Abs Immat Gran (auto) 0.00 (0.00-0.031) K/mm3 Absolute Neuts (auto) 0.7 L (1.3-6.7) K/mm3 Absolute Nucleated RBC 0.020 H (0.0-0.012) K/mm3 Nucleated RBC % 1.4 H (0.0-0.2) % PT (11.1-14.7) Seconds INR APTT (22.3-36.8) Seconds Sodium 132 L (137-145) mmol/L Potassium 4.0 (3.4-5.0) mmol/L Chloride 101 (98-107) mmol/L Carbon Dioxide 29 (22-30) mmol/L Anion Gap 2 L (4-12) mmol/L BUN 7 L (9-20) mg/dL Creatinine 0.60 L (0.7-1.3) mg/dL Estim Creat Clear Calc 119 ml/min Estimated GFR > 60 (59 - ) Glucose 99 (65-110) mg/dL Lactic Acid 2.4 H 0.9 (0.7-2.0) mmol/L Calcium 8.7 (8.4-10.2) mg/dL Total Bilirubin 0.3 (0.2-1.3) mg/dL AST 23 (17-59) U/L ALT 33 (6-50) U/L Alkaline Phosphatase 153 H (38-126) U/L Troponin I 0.015 D < 0.012 (0.000-0.034) ng/mL NT-Pro-B Natriuret Pep 1770 H (19.9-100) pg/mL Total Protein 6.0 L (6.3-8.2) g/dL Albumin 3.1 L (3.5-5.1) g/dL Urine Color Yellow (Yellow) Urine Appearance Clear (Clear) Urine pH 6.0 (5.0-9.0) Ur Specific [place] 1.021 (1.001-1.035) Urine Protein Negative (Negative) mg/dL Urine Glucose (UA) Negative (Negative) mg/dL Urine Ketones Negative (Negative) mg/dL Ur Blood (Man) Negative (Negative) Urine Nitrate Negative (Negative) Urine Bilirubin Negative (Negative) Urine Urobilinogen 0.2 (<2.0) mg/dL Leukocyte Esterase Rfl Negative (Negative) LOU/UL Nasal MRSA (PCR) Not detected (NOT DETECTE) Influenza A (RT-PCR) (Negative) Influenza B (RT-PCR) (Negative) RSV (RT-PCR) (Negative) SARS-CoV-2 RNA (RT-PCR) (Negative) <Malu Downing MD - Last Filed: 09/14/24 10:32> Discharge Plan Discharge Clinical Impression: Postobstructive pneumonia, Lung cancer <Marshall Gaming MD - Last Filed: 09/13/24 06:58> Patient Disposition: Acute Care [facility] <Marshall Gaming MD - Last Filed: 09/13/24 06:58> Condition: Stable <Marshall Gaming MD - Last Filed: 09/13/24 06:58> Time of Disposition: 07:05 <Marshall Gaming MD - Last Filed: 09/13/24 06:58> 07:05 <Malu Downing MD - Last Filed: 09/14/24 10:32>
[2024-09-12 06:26] LABS: INR 1.2; Partial Thromboplastin Time 26.6 Seconds (22.3-36.8)
[2024-09-12 06:31] LABS: NT Pro B Type Natriuretic Pept 521 pg/mL (19.9-100); Troponin I < 0.012 ng/mL (0.000-0.034)
[2024-09-12] MEDS: CEFEPIME 2 GM/NS 50 ML 2 GM/50 ML BAG IVPB ×2 (06:55→18:49)
--- NOTE | 2024-09-12 07:21 | ECG_ITS ---
Test Date: 2024-09-12 07:25:46 Measurements Intervals [place] Rate: 80 P: 24 IA: 133 QRS: -21 QRSD: 100 T: 9 QT: 389 QTc: 451 Interpretive Statements SINUS RHYTHM WITH SINUS ARRHYTHMIA LEFT VENTRICULAR HYPERTROPHY BASELINE ARTIFACT- I, II, III, AVR, AVL, AVF, V1 BORDERLINE ECG Compared to ECG 09/12/2024 03:59:57 No significant changes Electronically Signed On 09-12-2024 07:50:47 MINE PATROL by Ian Lopez D.O.
[2024-09-12 07:27] LABS: Add Urine Microscopic? NO; Appearance Urine Clear (Clear); Bilirubin Urine Negative (Negative); Blood Urine Negative (Negative); Color Urine Yellow (Yellow); Glucose Urine UA Negative (Negative); Ketones Urine Negative (Negative); Leukocyte Esterase Ur Negative LEU/UL (Negative); Nitrate Urine Negative (Negative); Protein Urine Negative (Negative); Specific Grav Ur 1.021 (1.001-1.035); Urobilinogen Urine 0.2 mg/dL (<2.0)
[2024-09-12 07:40] LABS: Reflex Lactic Acid Yes or No Add Lactic
[2024-09-12] MEDS: MORPHINE SULFATE (*CRX) 4 MG/ML INJ IV PUSH (07:46)
[2024-09-12] MEDS: VANCOMYCIN 1,250 MG/NS 250 ML 1,250 MG/250 ML BAG 166.67 MG IVPB (07:47)
[2024-09-12 08:04] LABS: Troponin I 0.015 ng/mL (0.000-0.034)
[2024-09-12 08:04] LABS: Lactic Acid 2.4 mmol/L (0.7-2.0)
[2024-09-12 09:03] LABS: MRSA (PCR) NOT DETECTED (NOT DETECTE)
[2024-09-12] MEDS: VANCOMYCIN 1,000 MG/NS 250 ML 1,000 MG/250 ML BAG 250 MG IVPB (09:39)
--- NOTE | 2024-09-12 11:08 | ECG_ITS ---
Test Date: 2024-09-12 11:14:50 Measurements Intervals [place] Rate: 138 P: 0 TX: 0 QRS: -19 QRSD: 98 T: 68 QT: 313 QTc: 475 Interpretive Statements ATRIAL FLUTTER/TACHYCARDIA WITH RAPID VENTRICULAR RESPONSE LEFT VENTRICULAR HYPERTROPHY WITH ST-T CHANGE BASELINE ARTIFACT- I, II, III, AVR, AVL, AVF, V1, V4-V6 ABNORMAL ECG Compared to ECG 09/12/2024 07:25:46 SINUS RHYTHM NO LONGER PRESENT Electronically Signed On 09-12-2024 11:55:29 HOSPICE EXECUTIVE DIRECTOR by Ian Lopez D.O.
[2024-09-12] MEDS: METOPROLOL TARTRATE INJ 5 MG/5 ML VIAL IV PUSH (11:20)
[2024-09-12] MEDS: LOSARTAN POTASSIUM 50 MG TABLET PO (11:21)
--- NOTE | 2024-09-12 11:32 | PC.NURSE ---
Called pharmacy to send up metamucil and miralax.
[2024-09-12] MEDS: polyethylene glycoL 3350 17 GM POWD.PACK PO (12:41)
[2024-09-12] MEDS: PSYLLIUM POWDER PACKET 1 PACKET PO (12:42)
[2024-09-12] MEDS: DOXYCYCLINE HYCLATE 100 MG TABLET PO ×2 (13:12→20:51)
--- NOTE | 2024-09-12 14:33 | PC.NURSE ---
1429 pt still remains on wait list for [facility]
--- NOTE | 2024-09-12 14:34 | PC.NURSE ---
1432 pt remains on waitlist at [facility]
[2024-09-12] MEDS: carvediloL 12.5 MG TABLET PO (20:51)
[2024-09-13] VITALS (18 sets, daily range): BP systolic 140–166; BP diastolic 89–111; PULSE 78–87; RESP 14–29; TEMP 36.3; O2SAT 96–100; BMI 33.4
[2024-09-13] MEDS: IPRATROPIUM 0.5 MG/ALBUTEROL SULFATE 2.5 MG AMPUL.NEB 3 ML INHALATION ×5 (00:34→19:44)
[2024-09-13] MEDS: MORPHINE SULFATE (*CRX) 4 MG/ML INJ IV PUSH ×3 (00:44→12:16)
[2024-09-13 06:40] LABS: Basophils Percent Auto 1.4 % (0.2-1.2); Eosinophils Percent Auto 2.7 % (0-4.4); Hematocrit 27.3 % (42.0-52.0); Hemoglobin 9.2 g/dL (14.0-18.0); Mean Corpuscular HGB Conc 33.7 g/dl (32-36); Mean Corpuscular Hemoglobin 27.4 pg (26-34); Mean Corpuscular Volume 81.3 fl (80-100); Mean Platelet Volume 9.1 fl (7.4-10.4); Monocytes Absolute Auto 0.2 K/mm3 (0.1-0.6); Monocytes Percent Auto 15.6 % (2.6-8.5); Neutrophils Absolute Auto 0.7 K/mm3 (1.3-6.7); Neutrophils Percent Auto 46.3 % (45.5-73.1); Nucleated Red Blood Cells Perc 1.4 % (0.0-0.2); Platelet Count Result 110 k/mm3 (150-375); Red Blood Count 3.36 M/mm3 (4.6-6.20); Red Cell Distribution Width 16.1 % (11.5-14.5)
[2024-09-13 06:47] LABS: Alanine Aminotransferase 33 U/L (6-50); Albumin Level 3.1 g/dL (3.5-5.1); Alkaline Phosphatase 153 U/L (38-126); Anion Gap 2 mmol/L (4-12); Aspartate Amino Transferase 23 U/L (17-59); Bilirubin,Total 0.3 mg/dL (0.2-1.3); Blood Urea Nitrogen 7 mg/dL (9-20); Calcium 8.7 mg/dL (8.4-10.2); Carbon Dioxide 29 mmol/L (22-30); Chloride 101 mmol/L (98-107); Estimated CRCL calculation 119 ml/min; Estimated Glomerular Filt Rate > 60; Glucose 99 mg/dL (65-110); Lactic Acid Reflex 0.9 mmol/L (0.7-2.0); Sodium 132 mmol/L (137-145)
[2024-09-13 06:58] LABS: NT Pro B Type Natriuretic Pept 1770 pg/mL (19.9-100); Troponin I < 0.012 ng/mL (0.000-0.034)
[2024-09-13] MEDS: CEFEPIME 2 GM/NS 50 ML 2 GM/50 ML BAG IVPB ×2 (07:04→17:03)
[2024-09-13 07:05] LABS: White Blood Count 1.5 K/mm3 (4.5-10.0)
--- NOTE | 2024-09-13 08:38 | PC.NURSE ---
Spoke with Kaycee from [facility] transfer center. Updated with vitals and pt's condition. No beds available at this time.
[2024-09-13] MEDS: carvediloL 12.5 MG TABLET PO ×2 (08:43→20:58)
[2024-09-13] MEDS: DOXYCYCLINE HYCLATE 100 MG TABLET PO ×2 (08:44→20:58)
[2024-09-13] MEDS: LOSARTAN POTASSIUM 50 MG TABLET PO (08:44)
--- NOTE | 2024-09-13 09:15 | PC.NURSE ---
Breakfast provided for pt.
--- NOTE | 2024-09-13 10:20 | ADMGEN ---
This patient, Josafat Calvo, was admitted to 2 Medical Room 240-01. Patient/family oriented to hospital policies and general routines including ID bracelet, bed and alarms, visiting hours, pain management, procedures, bathroom and other care routines, personal items, smoking policy, room service/diet, and visiting hours. Information on how to activate the Rapid Response Team has been discussed. Patient/Family are encouraged to report perceived risks to care and to ask questions if they do not understand what they are told or what they should do.
--- NOTE | 2024-09-13 15:29 | P.HP_ITS ---
H&P: HPI History of Present Illness Date/Time: 09/13/24 15:29 Chief Complaint: Shortness of breath. Narrative: 63-year-old male past medical history of COPD lung cancer, hypertension, cardiomyopathy who presented to the ER on account of shortness of breath. Patient reported shortness of breath has been going on for 2 days associated with the coughing chest pain. Noted the chest pain is worse with coughing and deep breaths. Otherwise denies any fever, no vomiting, no abdominal pain, no diarrhea no dysuria no focal symptoms. Patient reported he is on chemotherapy for his cancer and his next course of chemotherapy will start on . ER evaluation blood pressure 140/98, temperature 98.2?, pulse rate 84, respiratory 23, saturating% on room air. Labs notable for WBC 1.9, hemoglobin 9.8, platelets 121. NT proBNP 521. CT chest showed ill-defined neoplastic mass of the left perihilar region measuring about 6.3 x 4.3 cm transverse dimension. Near complete details consultation noted left upper lobe compatible with postobstructive atelectasis or pneumonia, with the case management specialist and might narrowing/occlusion of the left bundle Eliquis by central soft tissue mass. Patchy ground-glass opacities throughout the lungs dose tissue thickening. Patient was started on antibiotics prior to admission. Review of Systems Review of Systems: All other systems are reviewed and negative except as noted in the history above. [facility] Past Medical History Medical History Arthritis Asthma Bronchitis Cardiomyopathy COPD (chronic obstructive pulmonary disease) Glaucoma HTN (hypertension) Surgical History Surgical History History of knee replacement procedure of right knee Family History Family History (Updated 09/13/24 @ 11:22 by Manas Mccall RN) Father Alcoholism Heart problem Hypertension Sibling Alcoholism Cancer Hypertension Mother Cancer Hypertension Grandparent Diabetes mellitus Heart problem Hypertension Sibling Cancer Hypertension Social History Social History Smoking packs per day: 1 Smoking cigarettes per day: 20.0 Years smoked: 40 Smoking pack-years: 40.00 Smoking status: Current every day smoker Tobacco type: cigarettes Alcohol intake: never Substance use: current Substance use type: marijuana Do You Feel Safe in your Home?: Yes Lack of Transportation: No Lack of Food: Never True Current Housing: I Have Housing Concerned About Future Housing: No Difficulty Paying Gas/Electric Bills: No Difficulty Paying for Meds: No Currently Unemployed: No Education: Associate Degree Difficulty w/ Childcare or Family Care: No Gender identity (if verbalized by the patient): Male Spiritual care concerns: No Meds Home Medications and Allergies Home Medications Medication Instructions Recorded Confirmed Type latanoprost 0.005 % eye drops 1 drp ophthalmic (eye) DAILY 05/05/20 09/13/24 History alfuzosin 10 mg tablet,extended 10 mg PO DAILY 12/12/23 09/13/24 History release 24 hr aspirin 81 mg tablet,delayed 81 mg PO DAILY 12/12/23 09/13/24 History release (Adult Aspirin Regimen) atorvastatin 40 mg tablet 40 mg PO DAILY 12/12/23 09/13/24 History buspirone 7.5 mg tablet 7.5 mg PO BID 12/12/23 09/13/24 History carvedilol 12.5 mg tablet 12.5 mg PO Q12H 12/12/23 09/13/24 History eplerenone 25 mg tablet 25 mg PO DAILY 12/12/23 09/13/24 History hydroxyzine pamoate 100 mg capsule 100 mg PO Q12H 12/12/23 09/13/24 History lamotrigine 100 mg tablet 100 mg PO DAILY 12/12/23 09/13/24 History loratadine 10 mg tablet 10 mg PO DAILY 12/12/23 09/13/24 History ziprasidone HCl 80 mg capsule 80 mg PO BID 12/12/23 09/13/24 History omeprazole 40 mg capsule,delayed 40 mg PO DAILY #90 caps 02/20/24 09/13/24 Rx release losartan 50 mg tablet 50 mg PO DAILY #30 tabs 03/21/24 09/13/24 Rx fluticasone furoate 27.5 1 spray intranasal DAILY PRN 04/30/24 09/13/24 History mcg/actuation nasal Congestion spray,suspension ipratropium 0.5 mg-albuterol 3 mg 3 ml inhalation QID PRN shortness 04/30/24 09/13/24 Rx (2.5 mg base)/3 mL nebulization of breath or wheezing #180 mL soln nicotine 14 mg/24 hr daily 1 patch transdermal DAILY #28 ea 04/30/24 09/13/24 Rx transdermal patch tadalafil 20 mg tablet 20 mg PO DAILY PRN Erectile 04/30/24 09/13/24 History Dysfunction albuterol sulfate 90 mcg/actuation See Rx Instructions .Route 08/23/24 09/13/24 Rx aerosol inhaler .COMPLEX #8.5 ea clotrimazole 10 mg humberto 10 mg mucous membrane TID #30 tabs 08/23/24 09/13/24 Rx apixaban 5 mg tablet (Eliquis) 5 mg PO BID #60 tabs 09/06/24 09/13/24 Rx budesonide-formoterol HFA 160 See Rx Instructions .Route 09/09/24 09/13/24 Rx mcg-4.5 mcg/actuation aerosol .COMPLEX #10.2 ea inhaler (Symbicort) acetaminophen 500 mg tablet 500 mg PO Q6H PRN Pain (Scale 09/13/24 09/13/24 History Score 1-3) morphine 30 mg tablet,extended 30 mg PO Q12H 09/13/24 09/13/24 History release ondansetron HCl 8 mg tablet 8 mg PO BID 09/13/24 09/13/24 History oxycodone 5 mg tablet 10 mg PO Q4H PRN Pain (Scale Score 09/13/24 09/13/24 History 7-10) Allergies Allergy/AdvReac Type Severity Reaction Status Date / Time lisinopril Allergy Severe ANGIOEDEMA Verified 09/13/24 10:54 Penicillins Allergy Unknown Swelling Verified 09/13/24 10:54 Vital Signs Vital Signs - 24 hr 09/12/24 16:49 09/12/24 17:45 09/12/24 18:20 Temperature Pulse Rate 87 88 87 Respiratory Rate 22 H 24 H 24 H Blood Pressure 153/93 H 155/94 H 143/92 H Pulse Oximetry 97 98 97 Oxygen Delivery 09/12/24 20:51 09/12/24 21:27 09/12/24 19:00 Temperature Pulse Rate 83 86 90 Respiratory Rate 24 H 24 H Blood Pressure 178/106 H Pulse Oximetry 98 Oxygen Delivery 09/12/24 19:10 09/12/24 19:45 09/12/24 20:00 Temperature Pulse Rate 86 90 87 Respiratory Rate 30 H 29 H 23 H Blood Pressure 163/100 H 156/100 H Pulse Oximetry 100 98 96 Oxygen Delivery 09/12/24 20:15 09/12/24 20:38 09/12/24 20:45 Temperature Pulse Rate 90 87 89 Respiratory Rate 33 H 34 H 25 H Blood Pressure Pulse Oximetry 96 100 100 Oxygen Delivery 09/12/24 21:08 09/12/24 21:15 09/12/24 21:30 Temperature Pulse Rate 99 88 83 Respiratory Rate 28 H 23 H 18 Blood Pressure Pulse Oximetry 100 100 Oxygen Delivery 09/12/24 21:45 09/13/24 00:34 09/12/24 21:37 Temperature Pulse Rate 90 83 89 Respiratory Rate 23 H 29 H 23 H Blood Pressure Pulse Oximetry Oxygen Delivery 09/13/24 00:45 09/13/24 04:05 09/13/24 06:05 Temperature Pulse Rate 84 83 81 Respiratory Rate 16 14 16 Blood Pressure 140/94 H 144/92 H Pulse Oximetry 100 96 Oxygen Delivery 09/13/24 00:44 09/13/24 07:00 09/13/24 08:10 Temperature Pulse Rate 85 87 79 Respiratory Rate 24 H 14 21 H Blood Pressure 161/91 H Pulse Oximetry 98 Oxygen Delivery 09/13/24 08:19 09/13/24 08:35 09/13/24 08:43 Temperature Pulse Rate 78 79 86 Respiratory Rate 20 23 H Blood Pressure 146/91 H Pulse Oximetry 98 Oxygen Delivery 09/13/24 12:00 09/13/24 13:00 09/13/24 13:10 Temperature Pulse Rate 83 82 Respiratory Rate 18 18 Blood Pressure Pulse Oximetry Oxygen Delivery Room Air 09/13/24 14:00 Temperature 97.4 F L Pulse Rate 85 Respiratory Rate 16 Blood Pressure 166/111 H Pulse Oximetry 99 Oxygen Delivery Exam Narrative: General: alert and comfortable Eyes: EOMI, PERRLA ENNT External ears normal, Neck is supple, no masses, Respiratory systems: Clear to auscultation Cardiovascular S1, S2, normal rhythm, no murmur, rub, or gallop; no thrill or palpable murmurs on palpation. Gastrointestinal: soft, non-tender, and non-distended abdomen with no masses; BS present Skin: no rash, lesions, ulcerations, subcutaneous nodules or induration Musculoskeletal: no abnormality and no tenderness, normal ROM Neurologic: Alert and oriented x3, non focal Mental Status Exam: normal affect H&P: Results Labs Labs: Short CBC 09/13/24 Range/Units 06:31 WBC 1.5 L* (4.5-10.0) K/mm3 Hgb 9.2 L (14.0-18.0) g/dL Hct 27.3 L (42.0-52.0) % Plt Count 110 L (150-375) k/mm3 BMP 09/13/24 06:31 Sodium 132 L Potassium 4.0 Chloride 101 Carbon Dioxide 29 BUN 7 L Creatinine 0.60 L Glucose 99 Calcium 8.7 Cardiac Enzymes 09/13/24 Range/Units 06:31 Troponin I < 0.012 (0.000-0.034) ng/mL Liver Function 09/13/24 Range/Units 06:31 Total Bilirubin 0.3 (0.2-1.3) mg/dL AST 23 (17-59) U/L ALT 33 (6-50) U/L Alkaline Phosphatase 153 H (38-126) U/L Albumin 3.1 L (3.5-5.1) g/dL Assessment and Plan Assessment and plan (1) Postobstructive pneumonia: Code(s): J18.9 - Pneumonia, unspecified organism Status: Acute (2) Lung cancer: Code(s): C34.90 - Malignant neoplasm of unspecified part of unspecified bronchus or lung Status: Acute (3) PAF (paroxysmal atrial fibrillation): Code(s): I48.0 - Paroxysmal atrial fibrillation Status: Acute Plan Pneumonia Gram-positive versus Gram-negative. Blood and sputum cultures. Continue cefepime and doxycycline. MRSA negative. Lung cancer Patient receiving chemotherapy at [facility], next cycles are 21st. Monitor. Pancytopenia Likely from chemotherapy Continue monitoring. Hypertension Continue home medications. COPD/asthma Continue home bronchodilators. Cardiomyopathy Continue carvedilol and losartan Echo for ago showed EF 40-45%. Cardiology office visits notes reviewed. Proximal atrial fibrillation Continue carvedilol and Eliquis. DVT prophylaxis patient in next 4 Surrogate decisionmaker is ivis Flannery [facility] Advance Care Plan I have confirmed that the patient's Advanced Care Plan is present, code status is documented, or surrogate decision maker is listed in patient medical record.: Yes Medication Reconciliation I have utilized all available resources to obtain, update and review the patients current medications (includes all prescriptions, OTC, herbals, cannabis, and nutritional supplements).: Yes
[2024-09-13] MEDS: ONDANSETRON HCL ODT 4 MG TABLET 8 MG PO (16:48)
[2024-09-13] MEDS: CLOTRIMAZOLE 10 MG TROC MUCOUS MEM (16:49)
[2024-09-13] MEDS: PANTOPRAZOLE 40 MG TABLET PO (16:49)
[2024-09-13] MEDS: APIXABAN 5 MG TABLET PO (20:58)
[2024-09-13] MEDS: hydrOXYzine pamoate 25 MG CAPSULE 100 MG PO (20:58)
[2024-09-13] MEDS: MORPHINE SULFATE (*CRX) 30 MG TABCR PO (20:58)
[2024-09-13] MEDS: busPIRone HCL 2.5 MG, busPIRone HCL 5 MG 7.5 MG PO (20:58)
[2024-09-13] MEDS: LATANOPROST 0.005% OP SOLN 2.5 ML BTL 1 DROP EACH EYE (21:01)
[2024-09-14] VITALS (15 sets, daily range): BP systolic 106–171; BP diastolic 64–91; PULSE 69–122; RESP 18–22; TEMP 36.2–36.7; O2SAT 91–99
[2024-09-14] MEDS: IPRATROPIUM 0.5 MG/ALBUTEROL SULFATE 2.5 MG AMPUL.NEB 3 ML INHALATION ×4 (02:51→20:29)
[2024-09-14] MEDS: CEFEPIME 2 GM/NS 50 ML 2 GM/50 ML BAG IVPB ×2 (05:34→17:04)
[2024-09-14 05:56] LABS: Basophils Percent Auto 0.7 % (0.2-1.2); Eosinophils Percent Auto 2.8 % (0-4.4); Hematocrit 27.8 % (42.0-52.0); Hemoglobin 9.3 g/dL (14.0-18.0); Lymphocytes Absolute Auto 0.52 K/mm3 (0.9-3.2); Lymphocytes Percent Auto 35.9 % (18.3-44.2); Mean Corpuscular HGB Conc 33.5 g/dl (32-36); Mean Corpuscular Hemoglobin 27.4 pg (26-34); Mean Corpuscular Volume 81.8 fl (80-100); Mean Platelet Volume 10.1 fl (7.4-10.4); Monocytes Absolute Auto 0.3 K/mm3 (0.1-0.6); Monocytes Percent Auto 17.2 % (2.6-8.5); Neutrophils Absolute Auto 0.6 K/mm3 (1.3-6.7); Neutrophils Percent Auto 43.4 % (45.5-73.1); Platelet Count Result 141 k/mm3 (150-375); Red Cell Distribution Width 16.1 % (11.5-14.5)
[2024-09-14 06:11] LABS: Alanine Aminotransferase 28 U/L (6-50); Albumin Level 3.1 g/dL (3.5-5.1); Alkaline Phosphatase 148 U/L (38-126); Anion Gap 5 mmol/L (4-12); Aspartate Amino Transferase 21 U/L (17-59); Bilirubin,Total 0.3 mg/dL (0.2-1.3); Blood Urea Nitrogen 6 mg/dL (9-20); Calcium 8.7 mg/dL (8.4-10.2); Carbon Dioxide 27 mmol/L (22-30); Chloride 98 mmol/L (98-107); Estimated CRCL calculation 120 ml/min; Estimated Glomerular Filt Rate > 60; Glucose 90 mg/dL (65-110); Magnesium 1.5 mg/dL (1.6-2.3); Potassium 3.8 mmol/L (3.4-5.0); Sodium 130 mmol/L (137-145)
[2024-09-14 06:19] LABS: Lactic Acid Reflex 0.8 mmol/L (0.7-2.0)
[2024-09-14 06:54] LABS: White Blood Count 1.5 K/mm3 (4.5-10.0)
[2024-09-14] MEDS: NICOTINE (*PBKC) 14 MG PATCH 1 PATCH TRANSDERM (08:28)
[2024-09-14] MEDS: lamoTRIgine 100 MG TABLET PO (08:29)
[2024-09-14] MEDS: ASPIRIN 81 MG ENTERIC TABLET PO (08:29)
[2024-09-14] MEDS: LOSARTAN POTASSIUM 50 MG TABLET PO (08:29)
[2024-09-14] MEDS: APIXABAN 5 MG TABLET PO ×2 (08:30→20:47)
[2024-09-14] MEDS: CLOTRIMAZOLE 10 MG TROC MUCOUS MEM ×3 (08:30→16:07)
[2024-09-14] MEDS: PANTOPRAZOLE 40 MG TABLET PO ×2 (08:30→16:07)
[2024-09-14] MEDS: busPIRone HCL 2.5 MG, busPIRone HCL 5 MG 7.5 MG PO ×2 (08:30→20:47)
[2024-09-14] MEDS: MORPHINE SULFATE (*CRX) 30 MG TABCR PO ×2 (08:31→20:47)
[2024-09-14] MEDS: LORATADINE 10 MG TABLET PO (08:31)
[2024-09-14] MEDS: ATORVASTATIN 40 MG TABLET PO (08:31)
[2024-09-14] MEDS: DOXYCYCLINE HYCLATE 100 MG TABLET PO ×2 (08:31→20:47)
[2024-09-14] MEDS: carvediloL 12.5 MG TABLET PO ×2 (08:31→20:47)
[2024-09-14] MEDS: hydrOXYzine pamoate 25 MG CAPSULE 100 MG PO ×2 (09:13→20:46)
--- NOTE | 2024-09-14 14:17 | PCRCNOTE ---
Followed up with communication order on home cpap. Patient has one at home but does not wear it and will not wear the hospital's. RN aware.
--- NOTE | 2024-09-14 15:30 | P.PNIM_ITS ---
Progress Note: A&P Assessment and Plan (1) Postobstructive pneumonia: Code(s): J18.9 - Pneumonia, unspecified organism Status: Acute (2) Lung cancer: Code(s): C34.90 - Malignant neoplasm of unspecified part of unspecified bronchus or lung Status: Acute (3) PAF (paroxysmal atrial fibrillation): Code(s): I48.0 - Paroxysmal atrial fibrillation Status: Acute Plan Pneumonia Gram-positive versus Gram-negative. Blood and sputum cultures. Continue cefepime and doxycycline. MRSA negative. Lung cancer Patient receiving chemotherapy at [facility], next cycles on . Monitor. Pancytopenia Likely from chemotherapy Continue monitoring. Hypertension Continue home medications. COPD/asthma Continue home bronchodilators. Cardiomyopathy Continue carvedilol and losartan Echo from May showed EF 40-45%. Cardiology office visits notes reviewed. Proximal atrial fibrillation Continue carvedilol and Eliquis. DVT prophylaxis On Eliquis Surrogate decisionmaker is ivis Rojas Subjective Date/time seen: 09/14/24 15:30 Interval history: COmfortable at bedside WBC still 1.5 and blood culture positive for Staph epidermidis in one bottle, likely contamination monitor Review of Systems Review of Systems: All other systems are reviewed and negative except as noted in the history above. Exam Narrative: General: alert and comfortable Eyes: EOMI, PERRLA ENNT External ears normal, Neck is supple, no masses, Respiratory systems: Clear to auscultation Cardiovascular S1, S2, normal rhythm, no murmur, rub, or gallop; no thrill or palpable murmurs on palpation. Gastrointestinal: soft, non-tender, and non-distended abdomen with no masses; BS present Skin: no rash, lesions, ulcerations, subcutaneous nodules or induration Musculoskeletal: no abnormality and no tenderness, normal ROM Neurologic: Alert and oriented x3, non focal Mental Status Exam: normal affect Objective Data Vital Signs Vital Signs: Vital Signs - 24 hr 09/13/24 19:42 09/13/24 19:44 09/13/24 19:44 Temperature 97.4 F L Pulse Rate 85 86 Respiratory Rate 20 18 Blood Pressure 149/94 H Pulse Oximetry 98 96 Oxygen Delivery Room Air Fraction of Inspired Oxygen 09/13/24 19:50 09/13/24 20:58 09/13/24 20:00 Temperature Pulse Rate 86 86 Respiratory Rate 18 Blood Pressure Pulse Oximetry Oxygen Delivery Room Air Fraction of Inspired Oxygen 09/13/24 22:40 09/14/24 02:25 09/14/24 02:52 Temperature 97.4 F L 97.3 F L Pulse Rate 86 88 86 Respiratory Rate 20 20 18 Blood Pressure 153/89 H 171/91 H Pulse Oximetry 100 94 Oxygen Delivery Fraction of Inspired Oxygen 09/14/24 03:00 09/14/24 04:39 09/14/24 07:36 Temperature 97.1 F L Pulse Rate 85 85 Respiratory Rate 18 20 Blood Pressure 153/81 H Pulse Oximetry 96 91 Oxygen Delivery Room Air Fraction of Inspired Oxygen 21 09/14/24 07:36 09/14/24 07:43 09/14/24 08:31 Temperature Pulse Rate 79 85 80 Respiratory Rate 20 20 Blood Pressure Pulse Oximetry Oxygen Delivery Fraction of Inspired Oxygen 09/14/24 13:25 09/14/24 13:25 09/14/24 13:32 Temperature Pulse Rate 122 H 92 Respiratory Rate 22 H 22 H Blood Pressure Pulse Oximetry 94 Oxygen Delivery Room Air Fraction of Inspired Oxygen 21 09/14/24 14:00 Temperature 98.1 F Pulse Rate 69 Respiratory Rate 18 Blood Pressure 124/84 Pulse Oximetry 98 Oxygen Delivery Fraction of Inspired Oxygen Intake/Output Intake/Output: Intake & Output 09/11/24 09/12/24 09/13/24 09/14/24 23:59 23:59 23:59 23:59 Intake Total 600 840 984 Balance 600 840 984 Meds/Results Medications: Active Medications Generic Name Dose Route Start Last Admin Trade Name Freq PRN Reason Stop Dose Admin Acetaminophen 500 mg 09/13/24 15:25 Acetaminophen 500 Mg Tablet PO Q6H PRN Pain (Scale Score 1-3) Albuterol 0 puff 09/13/24 15:25 Albuterol Sulfate (*Sp) Aerosol 1 Puff INHALATION Q4H PRN SOB/WHEEZING Albuterol/Ipratropium 3 ml 09/12/24 08:00 09/14/24 13:25 Ipratropium 0.5 Mg/Albuterol Sulfate 2.5 Mg Ampul.Neb 3 Ml INHALATION 3 ml Q6HRT DARIEL Administration Albuterol/Ipratropium 3 ml 09/13/24 15:25 Ipratropium 0.5 Mg/Albuterol Sulfate 2.5 Mg Ampul.Neb 3 Ml INHALATION QID PRN shortness of breath or wheezing Alfuzosin HCl 10 mg 09/14/24 09:00 09/14/24 08:31 Alfuzosin 10 Mg Er Tablet PO 10 mg DAILY DARIEL Administration Apixaban 5 mg 09/13/24 21:00 09/14/24 08:30 Apixaban 5 Mg Tablet PO 5 mg Q12HR DARIEL Administration Aspirin 81 mg 09/14/24 09:00 09/14/24 08:29 Aspirin 81 Mg Enteric Tablet PO 81 mg DAILY DARIEL Administration Atorvastatin Calcium 40 mg 09/14/24 09:00 09/14/24 08:31 Atorvastatin 40 Mg Tablet PO 40 mg DAILY DARIEL Administration Buspirone HCl 2.5 mg/ 7.5 mg 09/13/24 21:00 09/14/24 08:30 Buspirone HCl 5 mg PO 7.5 mg Q12HR DARIEL Administration Carvedilol 12.5 mg 09/12/24 21:00 09/14/24 08:31 Carvedilol 12.5 Mg Tablet PO 12.5 mg Q12HR DARIEL Administration Clotrimazole 10 mg 09/13/24 17:00 09/14/24 12:32 Clotrimazole 10 Mg Troc MUCOUS MEM 10 mg TID DARIEL Administration Doxycycline Hyclate 100 mg 09/12/24 13:00 09/14/24 08:31 Doxycycline Hyclate 100 Mg Tablet PO 100 mg Q12HR DARIEL Administration Fluticasone Propionate 1 spray 09/13/24 15:54 Fluticasone Propionate 0.05% Na Spr 16 Gm Btl (*Bkc) NASAL QAM PRN Congestion Hydroxyzine Pamoate 100 mg 09/13/24 21:00 09/14/24 09:13 Hydroxyzine Pamoate 25 Mg Capsule PO 100 mg Q12HR DARIEL Administration Cefepime HCl 2 gm in 50 mls @ 100 mls/hr 09/12/24 18:00 09/14/24 06:04 Maxipime 2 Gm/Ns 50 Ml IVPB Infused Q12H DARIEL Infusion Lamotrigine 100 mg 09/14/24 09:00 09/14/24 08:29 Lamotrigine 100 Mg Tablet PO 100 mg DAILY DARIEL Administration Latanoprost 1 drop 09/13/24 21:00 09/13/24 21:01 Latanoprost 0.005% Op Soln 2.5 Ml Btl EACH EYE 1 drop HS DARIEL Administration Loratadine 10 mg 09/14/24 09:00 09/14/24 08:31 Loratadine 10 Mg Tablet PO 10 mg DAILY DARIEL Administration Losartan Potassium 50 mg 09/14/24 09:00 09/14/24 08:29 Losartan Potassium 50 Mg Tablet PO 50 mg DAILY DARIEL Administration Morphine Sulfate 4 mg 09/12/24 07:03 09/13/24 12:16 Morphine Sulfate (*Crx) 4 Mg/Ml Inj IV PUSH 4 mg Q2H PRN Administration Pain Rated 7-10 Morphine Sulfate 30 mg 09/13/24 21:00 09/14/24 08:31 Morphine Sulfate (*Crx) 30 Mg Tabcr PO 30 mg Q12HR DARIEL Administration Nicotine 1 patch 09/14/24 09:00 09/14/24 08:28 Nicotine (*Pbkc) 14 Mg Patch TRANSDERM 1 patch DAILY DARIEL Administration Ondansetron HCl 8 mg 09/13/24 15:48 09/13/24 16:48 Ondansetron Hcl Odt 4 Mg Tablet PO 8 mg BID PRN Administration Nausea And Vomiting Oxycodone HCl 10 mg 09/13/24 15:25 Oxycodone Hcl (*Crx) 5 Mg Tab Ir PO Q4H PRN Pain (Scale Score 7-10) Pantoprazole Sodium 40 mg 09/13/24 17:00 09/14/24 08:30 Pantoprazole 40 Mg Tablet PO 40 mg BID DARIEL Administration Polyethylene Glycol 17 gm 09/13/24 09:19 Polyethylene Glycol 3350 17 Gm Powd.Pack PO QAM PRN Constipation Radiology Results: ITS Impressions Chest CTA 09/12/24 06:19 Impression: No evidence of pulmonary embolus, aortic dissection, or aortic aneurysm. Ill-defined soft tissue neoplastic mass at the left perihilar region, encasing and narrowing central left pulmonary arterial tree, especially left upper lobe branches. Precise delineation of the mass is difficult, but is probably at least stable, if not increased in size from prior exam, possibly measuring up to approximately 6.3 x 4.3 cm in transverse dimensions. Near-complete dense consolidation of the left upper lobe, compatible with postobstructive atelectasis and/or pneumonia. There is encasement and marked narrowing/occlusion of the left upper lobe bronchus by the central soft tissue mass. Patchy groundglass airspace disease throughout the right lung with interstitial thickening. Findings could reflect pneumonia, pulmonary edema, or possibly drug reaction. Correlate clinically. Small left pleural effusion. Chest X-Ray 09/12/24 06:43 Impression: Left perihilar consolidation. Given history, this could reflect neoplastic disease. Minimal bilateral haziness could reflect pneumonia or postradiation change. Labs Labs: Laboratory Results - last 24 hr 09/14/24 05:05 WBC 1.5 L* RBC 3.40 L Hgb 9.3 L Hct 27.8 L MCV 81.8 MCH 27.4 MCHC 33.5 RDW 16.1 H Plt Count 141 L MPV 10.1 Immature Gran % (Auto) 0.0 Neut % (Auto) 43.4 L Lymph % (Auto) 35.9 [place] % (Auto) 17.2 H Eos % (Auto) 2.8 Baso % (Auto) 0.7 Lymph # (Auto) 0.52 L [place] # (Auto) 0.3 Eos # (Auto) 0.0 Baso # (Auto) 0.0 Abs Immat Gran (auto) 0.00 Absolute Neuts (auto) 0.6 L Absolute Nucleated RBC 0.000 Nucleated RBC % 0.0 Sodium 130 L Potassium 3.8 Chloride 98 Carbon Dioxide 27 Anion Gap 5 BUN 6 L Creatinine 0.60 L Estim Creat Clear Calc 120 Estimated GFR > 60 Glucose 90 Lactic Acid 0.8 Calcium 8.7 Magnesium 1.5 L Total Bilirubin 0.3 AST 21 ALT 28 Alkaline Phosphatase 148 H Total Protein 6.0 L Albumin 3.1 L
[2024-09-14] MEDS: DOCUSATE SODIUM 400 MG/400 ML ENEMA RECTAL (21:14)
[2024-09-14] MEDS: LATANOPROST 0.005% OP SOLN 2.5 ML BTL 1 DROP EACH EYE (21:14)
[2024-09-15] MEDS: IPRATROPIUM 0.5 MG/ALBUTEROL SULFATE 2.5 MG AMPUL.NEB 3 ML INHALATION ×2 (02:34→07:28)
[2024-09-15 02:36] VITALS: PULSE 81; RESP 19
[2024-09-15 02:44] VITALS: PULSE 88; RESP 19
[2024-09-15 05:11] VITALS: BP 125/67; PULSE 89; RESP 20; TEMP 36.8; O2SAT 100
[2024-09-15] MEDS: CEFEPIME 2 GM/NS 50 ML 2 GM/50 ML BAG IVPB (06:28)
[2024-09-15 07:28] VITALS: PULSE 85; RESP 20; O2SAT 92
[2024-09-15 07:38] VITALS: PULSE 88; RESP 20
[2024-09-15 08:19] LABS: Hematocrit 27.7 % (42.0-52.0); Hemoglobin 9.3 g/dL (14.0-18.0); Mean Corpuscular HGB Conc 33.6 g/dl (32-36); Mean Corpuscular Hemoglobin 27.3 pg (26-34); Mean Corpuscular Volume 81.2 fl (80-100); Mean Platelet Volume 9.4 fl (7.4-10.4); Platelet Count Result 144 k/mm3 (150-375); Red Blood Count 3.41 M/mm3 (4.6-6.20); Red Cell Distribution Width 16.6 % (11.5-14.5)
[2024-09-15 08:26] LABS: White Blood Count 1.8 K/mm3 (4.5-10.0)
[2024-09-15 08:29] LABS: Alanine Aminotransferase 27 U/L (6-50); Alkaline Phosphatase 134 U/L (38-126); Anion Gap 4 mmol/L (4-12); Aspartate Amino Transferase 21 U/L (17-59); Bilirubin,Total 0.3 mg/dL (0.2-1.3); Blood Urea Nitrogen 9 mg/dL (9-20); Calcium 8.5 mg/dL (8.4-10.2); Carbon Dioxide 28 mmol/L (22-30); Chloride 96 mmol/L (98-107); Estimated CRCL calculation 142 ml/min; Estimated Glomerular Filt Rate > 60; Glucose 96 mg/dL (65-110); Magnesium 1.4 mg/dL (1.6-2.3); Sodium 128 mmol/L (137-145)
[2024-09-15] MEDS: polyethylene glycoL 3350 17 GM POWD.PACK PO (08:52)
[2024-09-15 08:53] VITALS: PULSE 97
[2024-09-15] MEDS: ASPIRIN 81 MG ENTERIC TABLET PO (08:53)
[2024-09-15] MEDS: ATORVASTATIN 40 MG TABLET PO (08:53)
[2024-09-15] MEDS: busPIRone HCL 2.5 MG, busPIRone HCL 5 MG 7.5 MG PO (08:53)
[2024-09-15] MEDS: PANTOPRAZOLE 40 MG TABLET PO (08:53)
[2024-09-15] MEDS: LORATADINE 10 MG TABLET PO (08:53)
[2024-09-15] MEDS: CLOTRIMAZOLE 10 MG TROC MUCOUS MEM (08:53)
[2024-09-15] MEDS: APIXABAN 5 MG TABLET PO (08:53)
[2024-09-15] MEDS: carvediloL 12.5 MG TABLET PO (08:53)
[2024-09-15] MEDS: hydrOXYzine pamoate 25 MG CAPSULE 100 MG PO (08:54)
[2024-09-15] MEDS: LOSARTAN POTASSIUM 50 MG TABLET PO (08:54)
[2024-09-15] MEDS: MORPHINE SULFATE (*CRX) 30 MG TABCR PO (08:54)
[2024-09-15] MEDS: DOXYCYCLINE HYCLATE 100 MG TABLET PO (08:54)
[2024-09-15] MEDS: lamoTRIgine 100 MG TABLET PO (08:56)
--- NOTE | 2024-09-15 10:24 | PM.DS ---
DS: Admitting Diagnosis Discharge Date 09/15/2024 Admitting Diagnosis Shortness of breath. DS: Discharge Diagnosis Discharge Diagnosis (1) Pancytopenia: Code(s): D61.818 - Other pancytopenia Status: Acute (2) Postobstructive pneumonia: Code(s): J18.9 - Pneumonia, unspecified organism Status: Acute DS: Summary Hospital Course Hospital Course: 63-year-old male past medical history of COPD lung cancer, hypertension, cardiomyopathy who presented to the ER on account of shortness of breath. Patient reported shortness of breath has been going on for 2 days associated with the coughing chest pain. Noted the chest pain is worse with coughing and deep breaths. Otherwise denies any fever, no vomiting, no abdominal pain, no diarrhea no dysuria no focal symptoms. Patient reported he is on chemotherapy for his cancer and his next course of chemotherapy will start on . ER evaluation blood pressure 140/98, temperature 98.2?, pulse rate 84, respiratory 23, saturating% on room air. Labs notable for WBC 1.9, hemoglobin 9.8, platelets 121. NT proBNP 521. CT chest showed ill-defined neoplastic mass of the left perihilar region measuring about 6.3 x 4.3 cm transverse dimension. Near complete details consultation noted left upper lobe compatible with postobstructive atelectasis or pneumonia, with the medical case manager and might narrowing/occlusion of the left bundle Eliquis by central soft tissue mass. Patchy ground-glass opacities throughout the lungs dose tissue thickening. Patient was started on antibiotics prior to admission. Patient has continued to improve and eating adequately. Patient also has pancytopenia from chemotherapy for lung ca, WBC was 1.9 decreased to 1.5 and today has been recovering 1.8. Hb remained stable and Plts increased from 110 to 144. Repeat CBC in 3 days and follow up with PCP in 3-5 days and continue Follow up with Oncology as scheduled for continued Chemo Patient was discharged today on Cefdinir and Doxycycline. He tolerated diet and Cefepime comfortable which he took for 3 days. Will complete another 7 days of Abx. F/u with PCP in 3-5 days , continue follow up with oncology. Assessment and Plan (1) Postobstructive pneumonia: Code(s): J18.9 - Pneumonia, unspecified organism Status: Acute (2) Lung cancer: Code(s): C34.90 - Malignant neoplasm of unspecified part of unspecified bronchus or lung Status: Acute (3) PAF (paroxysmal atrial fibrillation): Code(s): I48.0 - Paroxysmal atrial fibrillation Status: Acute Plan Pneumonia Gram-positive versus Gram-negative. Blood and sputum cultures. Continue cefepime and doxycycline. MRSA negative. Lung cancer Patient receiving chemotherapy at [facility], next cycles on . Monitor. Pancytopenia Likely from chemotherapy Continue monitoring. Hypertension Continue home medications. COPD/asthma Continue home bronchodilators. Cardiomyopathy Continue carvedilol and losartan Echo from May showed EF 40-45%. Cardiology office visits notes reviewed. continue follo with cardiology Proximal atrial fibrillation Continue carvedilol and Eliquis. Time Spent with Patient Time attestation: Total time spent providing and/or coordinating discharge services: DS: Data Data Completed and Pending Labs on day of discharge: Labs from last 24 hours 09/15/24 08:01 WBC 1.8 L* RBC 3.41 L Hgb 9.3 L Hct 27.7 L MCV 81.2 MCH 27.3 MCHC 33.6 RDW 16.6 H Plt Count 144 L MPV 9.4 Sodium 128 L Potassium 4.0 Chloride 96 L Carbon Dioxide 28 Anion Gap 4 BUN 9 Creatinine 0.50 L Estim Creat Clear Calc 142 Estimated GFR > 60 Glucose 96 Calcium 8.5 Magnesium 1.4 L Total Bilirubin 0.3 AST 21 ALT 27 Alkaline Phosphatase 134 H Total Protein 6.0 L Albumin 3.0 L Preliminary micro results at discharge 09/12/24 04:28 Blood Culture - Preliminary Blood Staphylococcus epidermidis 09/12/24 04:28 Blood Culture - Preliminary Blood Discharge Plan Discharge Attending physician on discharge: Ramona Mora Discharging Clinician: Ramona Mora Anticipated Discharge Date/Time: 09/15/24 10:11 Patient Disposition: Home, Self-Care Activity: as tolerated Diet: as tolerated Patient Instructions: Antibiotic Form, How to Stop Smoking (GEN) Stand Alone Forms: General Discharge Information Follow-up/Referrals: Matthew Mccabe MD [Primary Care Provider] - (F/u with PCP in 3-5 days ) Discharge Medications: New doxycycline hyclate 100 mg tablet,delayed release (DR/EC) 100 mg PO BID 7 Days Qty: 14 0RF cefdinir 300 mg capsule 300 mg PO Q12H 7 Days Qty: 14 0RF Continued omeprazole 40 mg capsule,delayed release(DR/EC) 40 mg PO DAILY Qty: 90 3RF losartan 50 mg tablet 50 mg PO DAILY Qty: 30 5RF clotrimazole 10 mg humberto 10 mg mucous membrane TID Qty: 30 0RF albuterol sulfate 90 mcg/actuation HFA aerosol inhaler See Rx Instructions .ROUTE .COMPLEX Qty: 8.5 3RF Dose Instruction: INHALE 1-2 PUFF(S) BY MOUTH EVERY 4 - 6 HOURS NEEDED FOR SHORTNESS OF BREATH OR WHEEZING Rx Instructions: INHALE 1-2 PUFF(S) BY MOUTH EVERY 4 - 6 HOURS NEEDED FOR SHORTNESS OF BREATH OR WHEEZING alfuzosin 10 mg tablet extended release 24 hr 10 mg PO DAILY Rx Instructions: administer after the same meal each day eplerenone 25 mg tablet 25 mg PO DAILY ziprasidone HCl 80 mg capsule 80 mg PO BID Rx Instructions: give with food (meal/snack) carvedilol 12.5 mg tablet 12.5 mg PO Q12H Rx Instructions: must administer with a meal/food buspirone 7.5 mg tablet 7.5 mg PO BID aspirin [Adult Aspirin Regimen] 81 mg tablet,delayed release (DR/EC) 81 mg PO DAILY loratadine 10 mg tablet 10 mg PO DAILY atorvastatin 40 mg tablet 40 mg PO DAILY lamotrigine 100 mg tablet 100 mg PO DAILY hydroxyzine pamoate 100 mg capsule 100 mg PO Q12H fluticasone furoate 27.5 mcg/actuation spray,suspension 1 spray intranasal DAILY PRN (Reason: Congestion) Rx Instructions: into each nostril tadalafil 20 mg tablet 20 mg PO DAILY PRN (Reason: Erectile Dysfunction) ipratropium-albuterol 0.5 mg-3 mg(2.5 mg base)/3 mL solution for nebulization 3 ml inhalation QID PRN (Reason: shortness of breath or wheezing) Qty: 180 3RF nicotine 14 mg/24 hr patch 24 hour 1 patch transdermal DAILY Qty: 28 2RF Eliquis 5 mg tablet 5 mg PO BID Qty: 60 5RF latanoprost 0.005 % Drops 1 drp OPHTHALMIC (EYE) DAILY ondansetron HCl 8 mg tablet 8 mg PO BID PRN (Reason: Nausea And Vomiting) morphine 30 mg tablet extended release 30 mg PO Q12H acetaminophen 500 mg Tablet 500 mg PO Q6H PRN (Reason: Pain (Scale Score 1-3)) oxycodone 5 mg tablet 10 mg PO Q4H PRN (Reason: Pain (Scale Score 7-10)) budesonide-formoterol [Symbicort] 160-4.5 mcg/actuation HFA aerosol inhaler See Rx Instructions .ROUTE .COMPLEX Qty: 10.2 5RF Dose Instruction: INHALE 2 PUFFS BY MOUTH TWICE A DAY Rx Instructions: INHALE 2 PUFFS BY MOUTH TWICE A DAY. RINSE AND SPIT Other Ambulatory Orders: Complete Blood Count with Diff (Routine) Timeframe: 3 Days Location: Determined by Patient Ordered By: Ramona Mora Date of admission: 09/14/24 14:13 Primary Care Provider: Matthew Mccabe Admitting Provider: Ramona Mora Attending physician on admission: Ramona Mora Condition: Stable
== END 2024-09-15 11:30 | disposition home or self-care (01) | DRG 139 ==
LOC: ANHED 15:46 → ANH2MED 09-13 10:45
PROVIDERS: Emergency Medicine; Admitting Provider Internal Medicine; Emergency Provider Student in an Organized Health Care Education/Training Program; PCP Family Medicine Adolescent Medicine; Visit Provider Internal Medicine
DX: J18.9 Pneumonia, unspecified organism (principal); C34.90 Malignant neoplasm of unspecified part of unspecified bronchus or lung; J44.0 Chronic obstructive pulmonary disease with (acute) lower respiratory infection; I42.9 Cardiomyopathy, unspecified; I48.0 Paroxysmal atrial fibrillation; I10 Essential (primary) hypertension; D61.810 Antineoplastic chemotherapy induced pancytopenia; H40.9 Unspecified glaucoma; M19.90 Unspecified osteoarthritis, unspecified site; Z20.822 Contact with and (suspected) exposure to COVID-19; Z96.651 Presence of right artificial knee joint; Z79.82 Long term (current) use of aspirin
CPT/HCPCS: 36415; 71045; 71275; 80053; 81003; 83605; 83735; 83880; 84484; 85025; 85027; 85610; 85730; 87040; 87077; 87181; 87637; 87641; 93005; 94640; 96365; 96366; 96367; 96375; 99285; A9270; G0378; G0379; J0692; J2270; J3370; Q9967

== ENCOUNTER 2024-10-23 12:54 | Emergency (ER) | payer OTHER, SELFPAY ==
--- NOTE | ~2024-10-23 | XR_ITS ---
CHEST RADIOGRAPH, PA AND LATERAL CLINICAL HISTORY: CP, NAUSEAS, HBP, DIZZINESS . COMPARISON: 09/12/2024 TECHNIQUE: PA and lateral views of the chest. FINDINGS Elevation of the left hemidiaphragm with adjacent compressive atelectasis. Redemonstration of traction bronchiectasis within the left upper lobe with improved aeration when com pared with previous CT examination dated 09/12/2024. Coarse interstitial lung markings persist without focal infiltrate or effusion. Asymmetric left pulmonary liv. The remainder of the cardiomediastinal silhouette is otherwise unremarkable. IMPRESSION: Findings consistent with patient's known lung malignancy with improved aeration of the left upper lob e when compared with previous examination dated 09/12/2024 Reviewed, dictated and finalized at location A. [facility] IMPRESSION: Findings consistent with patient's known lung malignancy with improved aeration of the left upper lobe when compared with previous examination dated
--- NOTE | ~2024-10-23 | CT_ITS ---
CLINICAL INDICATION: Upper abdominal pain and emesis with a personal history of lung cancer COMPARISON: Reference is made to prior imaging of the chest dated 09/12/2024 and 04/17/2024 as well as dedicated imaging of the abdomen and pelvis dating back to 2016. TECHNIQUE: An enhanced CT of the abdomen and pelvis was performed utilizing multislice spiral Brightstorm ue reconstructed at 2.5 mm slice thickness. Coronal and sagittal reconstructions were performed. Th is CT examination was performed utilizing dose reduction techniques. DLP: 687 mGy-cm FINDINGS/OBSERVATIONS: Lung: Interval decrease in size of the left upper lobe post obstructive malignancy, now with post treatment change (scarring and cylindrical bronchiectasis). Interstitial thickening with patchy groundglass opacification detected within the remainder of the vi sualized lung torres. The heart is of normal size, without pericardial effusion. Mediastinum: No pathologically enlarged or morphologically suspicious lymph nodes are identified within the medias tinum, bilateral axilla, within the soft tissues of the anterior chest wall. Soft tissues of the chest: Unremarkable. Bones of the chest: No acute fracture. Prior fracture deformity identified within the posterior margin of the left eighth, ninth and 10th ri bs. Interval resolution of the expansile bony lesion previously detected within the posterior lateral lef t ninth rib - no longer present on today's examination. No new lytic or blastic lesions are identified. Liver: The liver enhances homogeneously and is not enlarged measuring 15 cm in longitudinal dimension. Gallbladder and biliary system: The gallbladder is only minimally distended, and otherwise unremarkable. Pancreas: The pancreas enhances homogeneously, without ductal dilatation. Spleen: Punctate calcifications identified within the splenic parenchyma, suggesting prior granulomat ous disease. The spleen is not enlarged and otherwise enhances homogeneously Kidneys: A well-circumscribed focus of fluid attenuation is identified exophytic from the upper pole of the le ft kidney measuring 31 x 32 x 32 mm (anterior to posterior x medial to lateral x cranial to caudal di mension), unchanged from prior and statistically a cyst. The remainder of the bilateral kidneys otherwise enhance symmetrically without hydronephrosis or beverley l calculi. Adrenal glands: Unremarkable. Gastrointestinal tract: The stomach is markedly distended with fluid and air with an air-fluid level. This fluid distention extends to the level of the jejunum, without a discrete source of obstruction. No surrounding inflammatory change. Appendix: The air-filled appendix is of normal caliber (axial series, images 175 through 182). Vasculature: Moderate calcified atherosclerotic disease is identified. Aneurysmal dilatation is identified within the right common iliac artery measuring 20 x 22 mm. The le ft common iliac artery is unremarkable. Lymph nodes: Scattered nonpathologically enlarged lymph nodes within the root of the mesentery and deep in the pel vis. Pelvic structures: The bladder is decompressed and otherwise unremarkable. The prostate gland is not enlarged. Body wall and musculoskeletal: Significant degenerative disease is identified within the lumbosacral spine, with osteophyte formatio n, disc space narrowing, endplate changes and vacuum phenomena. This is most prominent at the level of L5/S1. Compression of the superior endplate of L2 is also noted with adjacent vacuum phenomena suggesting ch ronicity although not present on the plain film evaluation dated 03/11/2017. IMPRESSION: Fluid distention of both the stomach and duodenum without a source of obstruction, consistent with faisal wilburn's history (possibly viral in origin). Significant decrease in size of the left upper lobe lung lesion as well as the lytic expansile lesion within the left posterior lateral ninth rib. Simple cyst within the left kidney. Aneurysmal dilatation of the right common iliac artery. Reviewed, dictated and finalized at location A. SWING DEVELOPER IMPRESSION: Fluid distention of both the stomach and duodenum without a source of obstructi on, consistent with patient's history (possibly viral in origin). Significant decrease in size of the left upper lobe lung lesion as well as the lytic expansile lesion within the left posterior lateral ninth rib. Simple cyst within the left kidney. Aneurysmal dilatation of the right common iliac artery.
[2024-10-23 12:54] VITALS: BP 124/87; PULSE 90; RESP 22; O2SAT 100
--- NOTE | 2024-10-23 12:57 | ED_ITS ---
HPI - General Adult General Chief complaint: Unspecified Stated complaint: mult. complaints Source: patient Mode of arrival: EMS Limitations: no limitations History of Present Illness HPI narrative: 64 years old male came to the ED by ambulance from home because of vomiting on average 2 to 3 times a day for the last 3 days, dizziness, patient unable to keep medicine or food down. Patient report-up white phlegm. History of lung cancer stage IV status post radiation therapy, currently on chemotherapy, last 1 was 2 weeks ago. History of hypertension hyperlipidemia, COPD. Patient smokes cigarettes, denies alcohol intake or drug intake, patient lives alone. His oncologist at [facility]. Related Data Home Medications ?Medication ?Instructions ?Recorded ?Confirmed ?Last Taken ?Type latanoprost 0.005 % eye drops 1 drp ophthalmic (eye) DAILY 05/05/20 09/13/24 Unknown History alfuzosin 10 mg tablet,extended 10 mg PO DAILY 12/12/23 09/13/24 Unknown History release 24 hr aspirin 81 mg tablet,delayed 81 mg PO DAILY 12/12/23 09/13/24 Unknown History release (Adult Aspirin Regimen) atorvastatin 40 mg tablet 40 mg PO DAILY 12/12/23 09/13/24 Unknown History buspirone 7.5 mg tablet 7.5 mg PO BID 12/12/23 09/13/24 Unknown History carvedilol 12.5 mg tablet 12.5 mg PO Q12H 12/12/23 09/13/24 Unknown History eplerenone 25 mg tablet 25 mg PO DAILY 12/12/23 09/13/24 Unknown History hydroxyzine pamoate 100 mg capsule 100 mg PO Q12H 12/12/23 09/13/24 Unknown History lamotrigine 100 mg tablet 100 mg PO DAILY 12/12/23 09/13/24 Unknown History loratadine 10 mg tablet 10 mg PO DAILY 12/12/23 09/13/24 Unknown History ziprasidone HCl 80 mg capsule 80 mg PO BID 12/12/23 09/13/24 Unknown History fluticasone furoate 27.5 1 spray intranasal DAILY PRN 04/30/24 09/13/24 Unknown History mcg/actuation nasal Congestion spray,suspension tadalafil 20 mg tablet 20 mg PO DAILY PRN Erectile 04/30/24 09/13/24 Unknown History Dysfunction acetaminophen 500 mg tablet 500 mg PO Q6H PRN Pain (Scale 09/13/24 09/13/24 Unknown History Score 1-3) morphine 30 mg tablet,extended 30 mg PO Q12H 09/13/24 09/13/24 Unknown History release ondansetron HCl 8 mg tablet 8 mg PO BID PRN Nausea And Vomiting 09/13/24 09/13/24 Unknown History oxycodone 5 mg tablet 10 mg PO Q4H PRN Pain (Scale Score 09/13/24 09/13/24 Unknown History 7-10) Allergies Allergy/AdvReac Type Severity Reaction Status Date / Time lisinopril Allergy Severe ANGIOEDEMA Verified 09/13/24 10:54 Penicillins Allergy Unknown Swelling Verified 09/13/24 10:54 Review of Systems 2 Review of Systems: All systems reviewed & are unremarkable except as noted in HPI and below PMFSH Past Medical History Medical History Cardiomyopathy Arthritis Bronchitis Asthma COPD (chronic obstructive pulmonary disease) HTN (hypertension) Glaucoma Surgical History Surgical History History of knee replacement procedure of right knee Family History Family History Father Alcoholism Heart problem Hypertension Sibling Alcoholism Cancer Hypertension Mother Cancer Hypertension Grandparent Diabetes mellitus Heart problem Hypertension Sibling Cancer Hypertension Social History Social History Smoking packs per day: 1 Smoking cigarettes per day: 20.0 Years smoked: 40 Smoking pack-years: 40.00 Smoking status: Current every day smoker Tobacco type: cigarettes Alcohol intake: never Substance use: current Substance use type: marijuana Do You Feel Safe in your Home?: Yes Lack of Transportation: No Lack of Food: Never True Current Housing: I Have Housing Concerned About Future Housing: No Difficulty Paying Gas/Electric Bills: No Difficulty Paying for Meds: No Currently Unemployed: No Education: Associate Degree Difficulty w/ Childcare or Family Care: No Gender identity (if verbalized by the patient): Male Spiritual care concerns: No Exam 2 Narrative: General appearance: Well-developed, well-nourished Skin: Normal color Head: Normocephalic, nontraumatic Eyes: Clear conjunctiva ENT: Oropharynx normal, ears normal, nose normal Neck: Supple, nontender Chest and respiratory: Airway patent, no respiratory distress, no accessory muscle use Heart: Regular rate/rhythm Abdomen: Soft, Upper abdominal tenderness, no rebound or guarding, no organomegaly, quiet bowel sounds Musculoskeletal: Normal range of motion, nontender back Neurologic: Alert and oriented ?3, AUTOMATION ENGINEERING TECHNICIAN is normal as tested, no gross motor deficit Course Vital Signs Vital signs: Vital Signs Pulse Rate 90 10/23/24 12:54 Respiratory Rate 22 H 10/23/24 12:54 Blood Pressure 124/87 10/23/24 12:54 Pulse Oximetry 100 10/23/24 12:54 Oxygen Delivery Room Air 10/23/24 12:54 Pulse Rate 90 10/23/24 12:58 Respiratory Rate 24 H 10/23/24 13:53 Blood Pressure 124/87 10/23/24 12:54 Pulse Oximetry 99 10/23/24 13:53 Oxygen Delivery Room Air 10/23/24 12:54 Medical Decision Making [facility] Narrative Medical decision making narrative: patient came with nausea and vomiting for the last 3 days, history of lung cancer on chemotherapy Vital signs on arrival showed insignificant abnormality Physical examination showed mild diffuse tenderness upper abdomen which is chronic Differential diagnosis includes dehydration, electrolyte imbalance, viral infection, progression of lung cancer with metastasis, depression Blood workup today includes CBC, CMP, lipase showed hemoglobin of 9.5 similar to the previous readings, sodium of 131 better than the previous readings, creatinine of 0.6, CT chest abdomen and pelvis with IV contrast showed NO ACUTE ABNORMALITIES PATIENT FEELS MUCH BETTER, WAS ABLE TO KEEP FLUIDS AND CRACKERS DOWN PRIOR TO DISCHARGE. VIRAL GASTROENTERITIS IS MY CONCERN. DISCHARGED ON ZOFRAN P Differential Diagnosis Differential Diagnosis: ABOVE Vital Signs Vital Signs: Vital Signs Pulse Rate 90 10/23/24 12:54 Respiratory Rate 22 H 10/23/24 12:54 Blood Pressure 124/87 10/23/24 12:54 Pulse Oximetry 100 10/23/24 12:54 Oxygen Delivery Room Air 10/23/24 12:54 Pulse Rate 90 10/23/24 12:58 Respiratory Rate 24 H 10/23/24 13:53 Blood Pressure 124/87 10/23/24 12:54 Pulse Oximetry 99 10/23/24 13:53 Oxygen Delivery Room Air 10/23/24 12:54 Lab Data 10/23/24 13:05 10/23/24 13:05 Labs: Lab Results 10/23/24 10/23/24 Range/Units 13:05 13:46 WBC 4.7 (4.5-10.0) K/mm3 RBC 3.49 L (4.6-6.20) M/mm3 Hgb 9.5 L (14.0-18.0) g/dL Hct 29.2 L (42.0-52.0) % MCV 83.7 (80-100) fl MCH 27.2 (26-34) pg MCHC 32.5 (32-36) g/dl RDW 21.0 H (11.5-14.5) % Plt Count 159 (150-375) k/mm3 MPV 9.9 (7.4-10.4) fl Immature Gran % (Auto) 0.2 (0-0.5) % Neut % (Auto) 64.0 (45.5-73.1) % Lymph % (Auto) 18.2 L (18.3-44.2) % [place] % (Auto) 13.1 H (2.6-8.5) % Eos % (Auto) 3.9 (0-4.4) % Baso % (Auto) 0.6 (0.2-1.2) % Lymph # (Auto) 0.85 L (0.9-3.2) K/mm3 [place] # (Auto) 0.6 (0.1-0.6) K/mm3 Eos # (Auto) 0.2 (0-0.3) K/mm3 Baso # (Auto) 0.0 (0.0-0.1) K/mm3 Abs Immat Gran (auto) 0.01 (0.00-0.031) K/mm3 Absolute Neuts (auto) 3.0 (1.3-6.7) K/mm3 Absolute Nucleated RBC 0.000 (0.0-0.012) K/mm3 Nucleated RBC % 0.0 (0.0-0.2) % PT 15.0 H (11.1-14.7) Seconds INR 1.2 APTT 29.4 (22.3-36.8) Seconds Sodium 131 L (137-145) mmol/L Potassium 3.6 (3.4-5.0) mmol/L Chloride 98 (98-107) mmol/L Carbon Dioxide 30 (22-30) mmol/L Anion Gap 3 L (4-12) mmol/L BUN 8 L (9-20) mg/dL Creatinine 0.60 L (0.7-1.3) mg/dL Estim Creat Clear Calc 117 ml/min Estimated GFR > 60 (59 - ) Glucose 129 H (65-110) mg/dL Calcium 9.2 (8.4-10.2) mg/dL Total Bilirubin 0.4 (0.2-1.3) mg/dL AST 22 (17-59) U/L ALT 12 (6-50) U/L Alkaline Phosphatase 120 (38-126) U/L Troponin I < 0.012 (0.000-0.034) ng/mL Total Protein 6.0 L (6.3-8.2) g/dL Albumin 3.6 (3.5-5.1) g/dL Lipase 46 (23-300) U/L Influenza A (RT-PCR) Negative (Negative) Influenza B (RT-PCR) Negative (Negative) RSV (RT-PCR) Negative (Negative) SARS-CoV-2 RNA (RT-PCR) Negative (Negative) Imaging Data Radiologist's impression: Impressions Chest X-Ray 10/23/24 13:46 IMPRESSION: Findings consistent with patient's known lung malignancy with improved aeration of the left upper lobe when compared with previous examination dated 09/12/2024 Chest/Abdomen/Pelvis CT 10/23/24 14:56 IMPRESSION: Fluid distention of both the stomach and duodenum without a source of obstruction, consistent with patient's history (possibly viral in origin). Significant decrease in size of the left upper lobe lung lesion as well as the lytic expansile lesion within the left posterior lateral ninth rib. Simple cyst within the left kidney. Aneurysmal dilatation of the right common iliac artery. Critical Care Time Critical Care Time Critical Care Time: No Discharge Plan Discharge Clinical Impression: Vomiting Patient Disposition: Home, Self-Care Condition: Improved Instructions: Acute Nausea and Vomiting (DC) Additional Instructions: RETURN IF SYMPTOMS ARE WORSENING , CALL YOUR FAMILY PHYSICIAN FOR APPOINTMENT, TAKE TYLENOL NEEDED FOR ACHES AND PAIN, CONTINUE HOME MEDICATIONS. ENCOURAGE FLUID INTAKE Patient Language: Moldovan Prescriptions: New ondansetron 4 mg tablet,disintegrating 4 mg PO Q4H 0 Days Qty: 10 0RF Rx Instructions: 1st dose 1-2 hr before radiation No Action omeprazole 40 mg capsule,delayed release(DR/EC) 40 mg PO DAILY Qty: 90 3RF clotrimazole 10 mg humberto 10 mg mucous membrane TID Qty: 30 0RF albuterol sulfate 90 mcg/actuation HFA aerosol inhaler See Rx Instructions .ROUTE .COMPLEX Qty: 8.5 3RF Dose Instruction: INHALE 1-2 PUFF(S) BY MOUTH EVERY 4 - 6 HOURS NEEDED FOR SHORTNESS OF BREATH OR WHEEZING Rx Instructions: INHALE 1-2 PUFF(S) BY MOUTH EVERY 4 - 6 HOURS NEEDED FOR SHORTNESS OF BREATH OR WHEEZING alfuzosin 10 mg tablet extended release 24 hr 10 mg PO DAILY Rx Instructions: administer after the same meal each day eplerenone 25 mg tablet 25 mg PO DAILY ziprasidone HCl 80 mg capsule 80 mg PO BID Rx Instructions: give with food (meal/snack) carvedilol 12.5 mg tablet 12.5 mg PO Q12H Rx Instructions: must administer with a meal/food buspirone 7.5 mg tablet 7.5 mg PO BID aspirin [Adult Aspirin Regimen] 81 mg tablet,delayed release (DR/EC) 81 mg PO DAILY loratadine 10 mg tablet 10 mg PO DAILY atorvastatin 40 mg tablet 40 mg PO DAILY lamotrigine 100 mg tablet 100 mg PO DAILY hydroxyzine pamoate 100 mg capsule 100 mg PO Q12H fluticasone furoate 27.5 mcg/actuation spray,suspension 1 spray intranasal DAILY PRN (Reason: Congestion) Rx Instructions: into each nostril tadalafil 20 mg tablet 20 mg PO DAILY PRN (Reason: Erectile Dysfunction) nicotine 14 mg/24 hr patch 24 hour 1 patch transdermal DAILY Qty: 28 2RF Eliquis 5 mg tablet 5 mg PO BID Qty: 60 5RF latanoprost 0.005 % Drops 1 drp OPHTHALMIC (EYE) DAILY ondansetron HCl 8 mg tablet 8 mg PO BID PRN (Reason: Nausea And Vomiting) morphine 30 mg tablet extended release 30 mg PO Q12H acetaminophen 500 mg Tablet 500 mg PO Q6H PRN (Reason: Pain (Scale Score 1-3)) oxycodone 5 mg tablet 10 mg PO Q4H PRN (Reason: Pain (Scale Score 7-10)) cefdinir 300 mg capsule 300 mg PO Q12H 7 Days Qty: 14 0RF doxycycline hyclate 100 mg tablet,delayed release (DR/EC) 100 mg PO BID 7 Days Qty: 14 0RF budesonide-formoterol [Symbicort] 160-4.5 mcg/actuation HFA aerosol inhaler See Rx Instructions .ROUTE .COMPLEX Qty: 10.2 5RF Dose Instruction: INHALE 2 PUFFS BY MOUTH TWICE A DAY Rx Instructions: INHALE 2 PUFFS BY MOUTH TWICE A DAY. RINSE AND SPIT losartan 50 mg tablet See Rx Instructions .ROUTE .COMPLEX Qty: 30 5RF Dose Instruction: TAKE 1 TABLET BY MOUTH EVERY DAY Rx Instructions: TAKE 1 TABLET BY MOUTH EVERY DAY ipratropium-albuterol 0.5 mg-3 mg(2.5 mg base)/3 mL solution for nebulization 3 ml inhalation QID PRN (Reason: shortness of breath or wheezing) Qty: 360 3RF Follow-up/Referrals: Matthew Mccabe MD [Primary Care Provider] -
[2024-10-23 12:58] VITALS: PULSE 90
--- NOTE | 2024-10-23 12:58 | ECG_ITS ---
Test Date: 2024-10-23 13:05:14 Measurements Intervals Dewitt Rate: 87 P: 35 HI: 150 QRS: -3 QRSD: 102 T: 40 QT: 410 QTc: 495 Interpretive Statements SINUS RHYTHM Compared to ECG 09/12/2024 11:14:50 Atrial flutter no longer present Left ventricular hypertrophy no longer present ST (T wave) deviation no longer present Electronically Signed On 10-23-2024 13:34:04 [employer]AME [employer] by Agueda Silvestre M.D.
[2024-10-23 13:10] LABS: Basophils Percent Auto 0.6 % (0.2-1.2); Eosinophils Absolute Auto 0.2 K/mm3 (0-0.3); Eosinophils Percent Auto 3.9 % (0-4.4); Hematocrit 29.2 % (42.0-52.0); Hemoglobin 9.5 g/dL (14.0-18.0); Immature Granulocyte Absolute 0.01 K/mm3 (0.00-0.031); Immature Granulocyte Percent A 0.2 % (0-0.5); Lymphocytes Absolute Auto 0.85 K/mm3 (0.9-3.2); Lymphocytes Percent Auto 18.2 % (18.3-44.2); Mean Corpuscular HGB Conc 32.5 g/dl (32-36); Mean Corpuscular Hemoglobin 27.2 pg (26-34); Mean Corpuscular Volume 83.7 fl (80-100); Mean Platelet Volume 9.9 fl (7.4-10.4); Monocytes Absolute Auto 0.6 K/mm3 (0.1-0.6); Monocytes Percent Auto 13.1 % (2.6-8.5); Platelet Count Result 159 k/mm3 (150-375); Red Blood Count 3.49 M/mm3 (4.6-6.20); White Blood Count 4.7 K/mm3 (4.5-10.0)
[2024-10-23 13:20] LABS: Alanine Aminotransferase 12 U/L (6-50); Albumin Level 3.6 g/dL (3.5-5.1); Alkaline Phosphatase 120 U/L (38-126); Anion Gap 3 mmol/L (4-12); Aspartate Amino Transferase 22 U/L (17-59); Bilirubin,Total 0.4 mg/dL (0.2-1.3); Blood Urea Nitrogen 8 mg/dL (9-20); Calcium 9.2 mg/dL (8.4-10.2); Carbon Dioxide 30 mmol/L (22-30); Chloride 98 mmol/L (98-107); Estimated CRCL calculation 117 ml/min; Estimated Glomerular Filt Rate > 60; Glucose 129 mg/dL (65-110); Lipase 46 U/L (23-300); Potassium 3.6 mmol/L (3.4-5.0); Sodium 131 mmol/L (137-145)
[2024-10-23 13:22] LABS: INR 1.2
[2024-10-23 13:24] LABS: Partial Thromboplastin Time 29.4 Seconds (22.3-36.8)
[2024-10-23 13:32] LABS: Troponin I < 0.012 ng/mL (0.000-0.034)
[2024-10-23] MEDS: ASPIRIN 81 MG CHEWABLE TABLET 324 MG PO (13:41)
[2024-10-23] MEDS: HYDROmorphone HCL INJ (*CRX) 1 MG/ML SYR 0.5 MG IV PUSH (13:42)
--- NOTE | 2024-10-23 13:51 | PC.NURSE ---
Pt crying states he thinks his cancer has spread. States he doesn't know how to proceed with treatment. RN encouraged pt to talk with oncologist & family openly about POC
[2024-10-23 13:53] VITALS: RESP 24; O2SAT 99
[2024-10-23 14:33] LABS: Influenza A QL RT-PCR Negative (Negative); Influenza B QL RT-PCR Negative (Negative); RSV RNA, RT-PCR Negative (Negative); SARS-CoV-2 RNA PCR Negative (Negative)
[2024-10-23 16:50] VITALS: BP 138/87; PULSE 86; RESP 18; TEMP 36.7; O2SAT 98
--- OUTSIDE RECORDS SUMMARY | 2024-10-30 06:47 | XMS_ITS | Encounter Summary ---
Author Organization [facility] Address [address] [place] [address] Care Team Providers Care Senior Abap Developer Name Role Phone Katina Casiano DO Unavailable [phone] Tracey Ang PA Unavailable [phone] Belkis Angel SPOT BILLING CLERK-BLOW DOWN HELPER Primary Care Provider + Reason for Visit * Reason Comments Echocardiogram Encounter Details Date Type Department Care Team (Late st Contact Info) Description 01/29/2024 2:00 PM CDT Office Visit [facility] - Cardiology [address] [facility] [address] [place] [address] Tracey Ang PA [address] [place] [address] Coronary artery disease involving tlingit & haida coronary artery of tlingit & haida heart without angina pectoris (Primary Dx); Heart failure with reduced ejection fraction (HCC); Gastroesophageal reflux disease without esophagitis Social History Tobacco Use Types Packs/Day Years Used Date Smoking Tobacco: Every Day Cigarettes 0.5 30 Smokeless Tobacco: Never Tobacco Cessation:Ready to Q uit: Not Asked; Counseling Given: Not Answered Alcohol Use Standard Drinks/Week Comments Yes 1 (1 standard drink = 0.6 oz pur e alcohol) AUDIT-C Answer Date Recorded Q1: How often do you have a drink containing alc ohol? 2-4 times a month 12/07/2022 Q2: How many drinks containi ng alcohol do you have on a typical day when you are drinking? 1 or 2 12/07/2022 Q3: How often do you have si x or more drinks on one occasion? Never 12/07/2022 PHQ-2 Answer Date Recorded PHQ2 TOTAL SCORE 0 07/29/2022 Sex and Gender Information Value Date Recorded Sex Assigned at Not on file Gender Identity Not on file Sexual Orientation Not on file documented as of this encounter Last Filed Vital Signs Vital Sign Reading Time Taken Comments Blood Pressure 118/72 01/29/2024 12:43 PM CDT Pulse 84 01/29/2024 12:43 PM CDT Temperature - - Respiratory Rate - - Oxygen Saturation 96% 01/29/2024 12:43 PM CDT Inhaled Oxygen Concentration - - Weight 102.1 kg (225 lb) 01/29/2024 12:43 PM CDT Height 175.3 cm (5' 9 ) 01/29/2024 12:43 PM CDT Body Mass Index 33.23 01/29/2024 12:43 PM CDT documented in this encounter Functional Status Functional Status Response Date of Assess ment Is person deaf or have serious hearing difficult y? No 12/07/2022 Is person blind or have serious difficulty seein g? No 12/07/2022 Does person have serious dif ficulty walking/climbing stairs? No 12/07/2022 Does person have difficulty dressing/bathing? No 12/07/2022 Does person have difficulty doing errands alone? No 12/07/2022 Cognitive Status Response Date of Assessm ent Does person have difficulty concentrating/remembering/making decisions? No 12/07/2022 documented as of this encounter Patient Instructions * Patient Instructions* Tracey Ang PA - 01/29/2024 1:55 PM CDT Get your labs drawn fasting- please fax results to us Follow-up with Dr. Nelson in 6 months documented in this encounter Progress Notes * Tracey Ang PA - 01/23/2024 11:54 AM CDT Assessment and Plan: Problem List Items Addressed This Visit Cardiovascular Heart failure with reduced ejection fraction (HCC) Relevant Medications eplerenone (Inspra) 25 MG tablet Gastrointestinal Gastroesophageal reflux disease without esophagitis Relevant Medications omeprazole (PriLOSEC) 40 MG capsule Other Visit Diagnoses Coronary artery disease involving tlingit & haida coronary artery of tlingit & haida heart without angina pectoris - Primary Relevant Orders LIPID PROFILE ?? #?Peripheral vascular disease/CAD - no angina, claudication - high intesity statin, aspirin 81 mg daily - Repeat lipid panel pending, LDL previously at goal ? # ??Cardiomyopathy??, HFrecEF - ??NYHA I - Continue??coreg??12.5?BID, eplerenone 25mg daily - not on ACEi/ARB due to reported hx of anaphylaxis??to ACEi? # HTN , controlled - Continue coreg and HCTZ #MR, moderate -mild-moderate per Dr. Nelson's review -Still mild-moderate on TTE today 01/28 #Leg pain -Recommended to follow-up with PCP regarding radiculopathy s/sx -Seen by vascular 08/21 with stable LYNNETTE Chief Complaint: Follow-up History of Present Illness: 62 year old??male?He has??hx of tobacco use, HTN, COPD, cardiomyopathy with??recovered EF?, grade II DD and mild to moderate ??MR presents for follow up. Last seen in office by Dr. Lomas in September 2022. Since last visit patient reports no LE edema. No orthopnea. Concerned about shooting pains down hisRLE at night- hx impingement on previous lumbar MRI. Has some random sharp chest pains- LHC with nosignificant obstruction in 2019. ?? Reports has difficulty with walking up the block due to COUGHLIN- feels has progressed over the past year. 01/28 Reports worsening COUGHLIN still- reports able to walk around the block but feels like he limits his activities to one thing due to progressive COUGHLIN. Occasional brief random chest pain- sharp in nature. Lasts seconds. None associated with exertion. Gets short of breath with one flight of stairs and has to stop at the top. Echo today with stable mild-mod MR. LV EF 56%. No RWMA Has cut back on tobacco use- smokes 6-7 cigarrettes/day Review of Systems: ROS negative unless stated in the HPI PHYSICAL EXAM: BP 118/72 Pulse 84 Ht 1.753 m (5' 9 ) Wt 102.1 kg (225 lb) SpO2 96% Body mass index is 33.23 kg/m??. GENERAL: No acute distress, pleasant, appears stated age SKIN: Warm and dry with good turgor EYES: Normal sclera LUNGS: Clear to auscultation, no wheezing, crackles, or rales NECK: No JVD, no carotid bruits HEART: Regular rate and rhythm, S1, S2. MR EXTREMITIES: No edema, cyanosis or clubbing. Pulses are 1-2 plus and symmetrical. NEURO: No focal deficit. MEDICATIONS FOR CURRENT ENCOUNTER: Current Outpatient Medications Medication ??? acetaminophen (TYLENOL) 500 MG capsule ??? albuterol (Proventil;Ventolin) (2.5 MG/3ML) 0.083% nebulizer solution ??? albuterol HFA (Proventil; Ventolin; Proair) 108 (90 Base) MCG/ACT inhaler ??? alfuzosin CR 24hr (Uroxatral) 10 MG tablet ??? aspirin (Aspirin Low Dose) 81 MG chew tablet ??? atorvastatin (Lipitor) 40 MG tablet ??? busPIRone (Buspar) 7.5 MG tablet ??? carvedilol (Coreg) 12.5 MG tablet ??? eplerenone (Inspra) 25 MG tablet ??? fluticasone propionate (Flonase) 50 MCG/ACT nasal spray ??? hydroCHLOROthiazide (Hydrodiuril) 25 MG tablet ??? hydrOXYzine pamoate (VISTARIL) 100 MG capsule ??? lamoTRIgine (LAMICTAL) 100 MG tablet ??? latanoprost (Xalatan) 0.005 % ophthalmic solution ??? loratadine (Claritin) 10 MG tablet ??? nicotine polacrilex (COMMIT) 4 MG lozenge ??? nicotine polacrilex (NICORETTE) 4 MG gum ??? omeprazole (PriLOSEC) 40 MG capsule ??? sildenafil (VIAGRA) 100 MG tablet ??? Symbicort 160-4.5 MCG/ACT inhaler ??? tadalafil (Cialis) 20 MG tablet ??? tiotropium (Spiriva Respimat) 2.5 MCG/ACT inhaler ??? triamcinolone acetonide (Kenalog) 0.1 % cream ??? varenicline (Chantix) 1 MG tablet ??? ziprasidone (Geodon) 80 MG capsule No current facility-administered medications for this visit. DATA: ECHO: 02/20 ? Left??Ventricle: Left ventricle size is normal. Normal wall thickness. Ventricular mass is normal. Normal systolic function. EF by 2D Malone biplane is 56%. Normal wall motion. Normal diastolic function. ??? Tricuspid??Valve: Trace regurgitation. Unable to estimate the pulmonary artery systolic pressure due to lack of tricuspid regurgitation. ??? Mitral??Valve: Mild to moderate regurgitation. 05/21 Summary Findings consistent with normal LV systolic function, borderline dilated LV and moderate functionalMR due to LV and annular dilatation. Associated findings as listed. No significant change since prior study from 07/23/2020. The left ventricle is borderline enlarged. Left ventricular systolic function is normal with an ejection fraction by Biplane Method of Discs of 68 %. Global longitudinal strain of the left ventricle is -19% (range -17 to -21%) , low normal. Left ventricular segmental wall motion is normal. There is mild concentric left ventricular hypertrophy. The left ventricular diastolic function is abnormal (Grade II), consistent with elevated left ventricle filling pressures. The right ventricular cavity size is normal. Normal right ventricular systolic function. The left atrium is mildly enlarged. The right atrium is normal. Estimated right atrial pressure 3 mmHg. There is no aortic stenosis with a peak velocity of 1.0 m/sec, mean gradient of 3 mmHg, aortic valve area of 3.4 cm??, and an NSDI of 0.78. There is no aortic regurgitation. There is trace pulmonic regurgitation. Normal PVR of 1.9 Wood units. There is no mitral stenosis. Mitral valve area by 2D Planimetry is 6.73 cm2. There is moderate functional mitral regurgitation. Mitral valve effective regurgitant orifice by PISA is 0.16 cm??, moderate. Mitral valve regurgitant volume by pulsed Doppler quantitative flow method is 35.30 ml. Mitral valve regurgitant fraction by pulsed Doppler quantitative flow method is 35 %. There is trace tricuspid regurgitation. No pulmonary hypertension, estimated pulmonary arterial systolic pressure is 28 mmHg/mean PA pressure of 15 mmHg. The aortic root at the sinus of valsalva is normal in size measuring 2.96 cm with an index of 1.27 cm/m2. No plaque seen within the aorta. No pericardial effusion. 07/19 Summary The left ventricle is moderately increased in size. Left ventricular systolic function is normal with an ejection fraction by Biplane Method of Discs of 70 %. Left ventricular segmental wall motion is normal. The left ventricular diastolic function is normal, consistent with normal left ventricle filling pressures. There is mild to moderate mitral regurgitation. Normal right ventricular systolic function. CATH/STRESS TESTIN/20 ANGIOGRAPHY: ?? i. ?Left main: Large caliber vessel that trifurcates into LAD, LCx and ramus. No angiographically significant disease noted. ii.?LAD: Medium caliber vessel with diffuse mild luminal irregularities noted. Gives off 2 diagonal branches. iii. Ramus: Medium caliber vessel with mild luminal irregularities noted. iv. ?? LCx: Non dominant medium caliber vessel with minimal luminal irregularities diffusely. Givesoff 2 obtuse marginal branches before continuing as a smaller caliber vessel in the left AV groove.Moderate ostial 30% stenosis noted. v. ?? RCA: Dominant medium caliber vessel with diffuse mild luminal irregularities noted. Gives offrPDA distally. ? DOMINANCE: Right ?? DIAGNOSTIC INTERPRETATIONS: - Non obstructive coronary arteries. - Diffuse mild luminal disease. ?? RECOMMENDATIONS AFTER DIAGNOSTIC CATHETERIZATION: Medical management of nonobstructive CAD. Aggressive modification of atherosclerotic risk factors. Continue titration of medications for cardiomyopathy. documented in this encounter Plan of Treatment Scheduled Orders Name Type Priority Associated Diagnoses Orde r Schedule LIPID PROFILE Lab Routine Coronary artery disease involving tlingit & haida coronary artery of tlingit & haida heart without angina pectoris 1 Occurrences starting 01/29/2024 until 02/22/2025 documented as of this encounter Goals Goal Patient Goal Type Associated Problems Recent Progress Patient-Stated? Author Mobility General No Stephanie Gallegos, RN Note: Expected end date: *10/30/2019 The goal is to maintain or improve your mobility at the optimum level for you. Interventions: documented as of this encounter Visit Diagnoses Diagnosis Coronary artery disease involving tlingit & haida coronary artery of tlingit & haida heart without angina pectoris- Primary Heart failure with reduced ejection fraction (HCC) Gastroesophageal reflux disease without esophagitis Esophageal reflux documented in this encounter Care Teams Senior Abap Developer Relationship Specialty Start Date End Date Belkis Angel, SPOT BILLING CLERK-BLOW DOWN HELPER [address] [facility] [address] [place] [address] PCP - General Nurse Practitioner 08/29/23 05/05/24 Katina Casiano DO [address] [facility] [address] DIV OF [facility] [place], [place] Hospitalist 06/05/23 Tracey Ang PA [address] [facility] [address] [place] [address] Physician Quick Sketch Artist 08/15/23 documented as of this encounter
--- OUTSIDE RECORDS SUMMARY | 2024-10-30 06:47 | XMS_ITS | Encounter Summary ---
Author Organization [facility] Address [address] [place] [address] Care Team Providers Care Pomologist Name Role Phone Katina Casiano DO Unavailable [phone] Tracey Ang PA Unavailable [phone] Belkis Angel PIN DRAFTER OPERATOR-SITE SURVEYOR Primary Care Provider + Reason for Visit * Reason Onset Date Comments MEDICATION REFILL 01/05/2024 Encounter Details Date Type Department Care Team (Late st Contact Info) Description 01/05/2024 Refill [facility] - Pulmonology [address] [place] [address] [place] [id number] Adebayo Weeks MD [address] [place] [address] MEDICATION REFILL Social History Tobacco Use Types Packs/Day Years Used Date Smoking Tobacco: Every Day Cigarettes 0.5 30 Smokeless Tobacco: Never Alcohol Use Standard Drinks/Week Comments Yes 1 [...] on file documented as of this encounter Functional Status Functional Status Response [...] No 12/07/2022 documented as of this encounter Miscellaneous Notes * Telephone Encounter - Mynor Rodas RN - 01/05/2024 9:11 AM CST Refill Request Josafat Branch Umesh EDELMIRA: 02/2023 NOV scheduled: 03/26/2024 LRF: 10/24/2023 Qty Disp: 8g # of refills: 1 Allergies: Allergies Allergen Reactions ??? Lisinopril Anaphylaxis and Unknown ??? Pcn [Penicillins] Anaphylaxis ??? Penicillin G Swelling Pended Medication Order: Requested Prescriptions Pending Prescriptions Disp Refills ??? albuterol HFA (Proventil; Ventolin; Proair) 108 (90 Base) MCG/ACT inhaler 8 g 1 Sig: Inhale 2 (two) puffs by mouth every 6 hours as needed N RESOURCES LEADER documented in this encounter Plan of Treatment Not on file documented as of this encounter Goals Goal Patient Goal Type Associated Problems Recent Progress Patient-Stated? Author Mobility General No Stephanie Gallegos, RN Note: Expected end date: *10/30/2019 The goal is to maintain or improve your mobility at the optimum level for you. Interventions: documented as of this encounter Visit Diagnoses Diagnosis Centrilobular emphysema (HCC) Other emphysema Asthma-COPD overlap syndrome (HCC) documented in this encounter Care Teams Pomologist Relationship Specialty Start Date End Date Belkis Angel, PIN DRAFTER OPERATOR-SITE SURVEYOR [address] [place] [address] [place] [address] PCP - General Nurse Practitioner 08/29/23 05/05/24 Katina Casiano DO [address] OF [facility] [place], [place] Hospitalist 06/05/23 Tracey Ang PA [address] [facility] [address] [place] [address] Physician Pepper Cutter 08/15/23 documented as of this encounter
--- OUTSIDE RECORDS SUMMARY | 2024-10-30 06:47 | XMS_ITS | Clinical Summary ---
Author Organization [facility] Address [address] [place] [address] Phone Care Team Providers Care Art Department Head Name Role Phone SADIE JACK MD Unavailable Unavailable Reason for Visit and Chief Complaint PAIN MANAGEMENT FOLLOW UP Plan of Treatment No Plan of Treatment Recorded Assessments Includes: Assessments from this encounter No Assessments Recorded Medical Equipment - Implanted Devices Includes: Current Devices No Medical Equipment Recorded Medications Includes: Medications discussed during this encounter and other current Medications Current Medications (continue as prescribed) Tylenol with Codeine #3 300-30 MG Oral Tablet 06/24/2020 Provider: PAUL GALLEGO Diagnosis: Radiculopathy, l umbar region 1 po BID prn Last Documented On 0 10:36AM By PAUL DAVIS-ANAYA ; [facility] Gabapentin 600 MG Oral Tablet 05/26/2020 Provider: PAUL MAJANO Diagnosis: Radiculopathy, l umbar region TAKE 1 TABLET BY MOUTH THREE TIMES DAILY. Last Documented On 0 2:54PM By PAUL NUNEZ ; [facility] Triamcinolone Acetonide 0.1% External Cream 10/07/2019 Provider: Diagnosis: Last Documented On 9 11:28AM By aFye MEJÍA ; [facility] Spironolactone 50 MG Oral Tablet 10/07/2019 Provider : Diagnosis: Last Documented On 9 11:27AM By Faye MEJÍA ; [facility] Omeprazole 40 MG Oral Capsule Delayed Release 10/07/20 Provider: Diagnosis: Last Documented On 9 11:27AM By Faye MEJÍA ; [facility] Ibuprofen 600 MG Oral Tablet 10/07/2019 Provider: Diagnosis: Last Documented On 9 11:27AM By Faye MEJÍA ; [facility] hydrOXYzine Pamoate 50 MG Oral Capsule 10/07/2019 Pr ovider: Diagnosis: Last Documented On 9 11:26AM By Faye MEJÍA ; [facility] Carvedilol 25 MG Oral Tablet 10/07/2019 Provider: Diagnosis: Last Documented On 9 11:26AM By Faye MEJÍA ; [facility] Medications Administered Includes: Administered Medications from this encounter No Administered Medications Recorded Results Includes: Results discussed during this encounter No Results Recorded For Specified Dates History of Present Illness Includes: History of Present Illness from this encounter No History of Present Illness Recorded Social History No Social History Recorded - Smoking Status Unknown Medical History Includes: Medical History addressed during this encounter No Medical History Recorded Family History Includes: Family History addressed during this encounter No Family History Recorded Review of Systems Includes: Review of Systems from this encounter No Review of Systems Recorded Mental Status Includes: Mental Status from this encounter No Mental Status Recorded Functional Status Includes: Functional Status from this encounter No Functional Status Recorded Physical Exam Includes: Physical Exam from this encounter No Physical Exam Recorded Allergies Includes: Active Allergies Substance Type Reaction Onset Date Resolved Date Statu s Penicillins Allergy 10/07/2019 Active Last Documented On 0 8:29AM ; [facility] Lisinopril Allergy 10/07/2019 Active Last Documented On 0 8:29AM ; [facility] Insurance Includes: Active Insurance Policies Plan Name Member ID Group # Subscriber Relationship Effect jeannine Dates - [facility] [id number] RYLEE GRAY Self Clinical Notes Includes: Clinical Notes from this encounter No Clinical Notes Recorded
--- OUTSIDE RECORDS SUMMARY | 2024-10-30 06:47 | XMS_ITS | Encounter Summary ---
Author Organization [facility] Address [address] [place] [address] Care Team Providers Care Adult Daycare Coordinator Name Role Phone Oh Katina Roche DO Unavailable [phone] Tracey Ang PA Unavailable [phone] Natalie Baum Primary Care Provider [phone] Reason for Referral * Radiology Services (Routine) - Closed Specialty Diagnoses / Procedures Referred By Contac t Referred To Contact Vascular Lab Diagnoses PAD (peripheral artery disease) (HCC) Procedures VAS Arterial Multilevel Lis Corrigan MD [address] [place] [address] 2L [place] [address] Referral ID Status Reason Start Date Expiration Date Visits Re quested Visits Authorized [id number] Closed 07/17/2024 07/17/2025 1 1 Encounter Details Date Type Department Care Team (Late st Contact Info) Description 07/17/2024 Orders Only [facility] - Vascular Surgery [address] [place] [address], [place] [address] Raimundo Munoz RN PAD (peripheral artery disease) (HCC) Social History Tobacco Use Types Packs/Day Years [...] No 12/07/2022 documented as of this encounter Plan of Treatment Scheduled Orders Name Type Priority Associated Diagnoses Orde r Schedule VAS Arterial Multilevel Le Vascular Routine PAD (peripheral artery disease) (HCC) 1 Occurrences starting 07/17/2024 until 07/17/2025 documented as of this encounter Goals Goal Patient Goal Type Associated Problems Recent Progress Patient-Stated? Author Mobility General No Stephanie Gallegos RN Note: Expected end date: *10/30/2019 The goal is to maintain or improve your mobility at the optimum level for you. Interventions: documented as of this encounter Visit Diagnoses Diagnosis PAD (peripheral artery disease) (HCC)- Primary Unspecified disorders of arteries and arterioles documented in this encounter Care Teams Adult Daycare Coordinator Relationship Specialty Start Date End Date Natalie Baum [address] [place] [address] PCP - General 05/06/24 Katina Casiano DO [address] 2[address] DIV OF GEN INTERNAL MEDICINE [place], [place] Hospitalist 06/05/23 Tracey Ang PA [address] [facility] [address] [place] [address] Physician Configuration Management Advisor 08/15/23 documented as of this encounter
--- OUTSIDE RECORDS SUMMARY | 2024-10-30 06:47 | XMS_ITS | Encounter Summary ---
Author Organization [facility] Address [address] [place] [address] Care Team Providers Care Silversmith Apprentice Name Role Phone Katina Casiano DO Unavailable [phone] Tracey Ang PA Unavailable [phone] Belkis Angel GIFTS OFFICER-CLEANING PROFESSIONAL Primary Care Provider + Encounter Details Date Type Department Care Team (Latest Contact Info) Description 02/05/2024 Travel Social History Tobacco Use Types Packs/Day Years [...] as of this encounter Plan of Treatment Not on file documented as of this encounter Goals Goal Patient Goal Type Associated Problems Recent Progress Patient-Stated? Author Mobility General No Stephanie Gallegos, RN Note: Expected end date: *10/30/2019 The goal is to maintain or improve your mobility at the optimum level for you. Interventions: documented as of this encounter Visit Diagnoses Not on filedocumented in this encounter Care Teams Silversmith Apprentice Relationship Specialty Start Date End Date Belkis Angel, GIFTS OFFICER-CLEANING PROFESSIONAL [address] [facility] [address] [place] [address] PCP - General Nurse Practitioner 08/29/23 05/05/24 Katina Casiano DO [address] [facility] 2L DIV OF [employer] INTERNAL MEDICINE [place], [place] Hospitalist 06/05/23 Tracey Ang PA [address] [facility] [address] [place] [address] Physician Universal Banker 08/15/23 documented as of this encounter
--- OUTSIDE RECORDS SUMMARY | 2024-10-30 06:47 | XMS_ITS | Clinical Summary ---
Author Organization [facility] Address [address] [place] [address] Phone Care Team Providers Care Automation Mechanic Name Role Phone SADIE JACK MD Unavailable Unavailable Reason for Visit and Chief Complaint NO SHOW Plan of Treatment No Plan of Treatment [...] Last Documented On 0 10:36AM By PAUL NUNEZ ; [facility] Gabapentin 600 MG Oral Tablet 05/26/2020 Provider: PAUL MAJANO Diagnosis: Radiculopathy, l umbar region TAKE 1 TABLET BY MOUTH THREE TIMES DAILY. Last Documented On 0 2:54PM By PAUL NUNEZ ; [facility] Triamcinolone Acetonide 0.1% External Cream 10/07/2019 Provider: Diagnosis: Last Documented On 9 11:28AM By Faye MEJÍA ; [facility] Spironolactone 50 MG Oral Tablet 10/07/2019 Provider : Diagnosis: Last Documented On 9 11:27AM By Faye MEJÍA ; [facility] Omeprazole 40 MG Oral Capsule Delayed Release 10/07/20 19 Provider: Diagnosis: Last Documented On 9 11:27AM By Faye MEJÍA ; [facility] Ibuprofen 600 MG Oral Tablet 10/07/2019 Provider: Diagnosis: Last Documented On 9 11:27AM By Faye MEJÍA ; [facility] hydrOXYzine Pamoate 50 MG Oral Capsule 10/07/2019 Pr ovider: Diagnosis: Last Documented On 9 11:26AM By Faye MEJÍA ; [facility] Carvedilol 25 MG Oral Tablet 10/07/2019 Provider: Diagnosis: Last Documented On 9 11:26AM By Faye MEJÍA ; [facility] Medications Administered Includes: Administered Medications from this [...] Active Last Documented On 0 8:29AM ; [facility] Lisinopril Allergy 10/07/2019 Active Last Documented On 0 8:29AM ; [facility] Encounters Encounter Provider Location Date Check-In Time Check-Out Time Diagnosis NO SHOW PAUL DAVIS- 06/30/2020 8:28AM 11:59PM Insurance Includes: Active Insurance Policies Plan Name Member ID Group # Subscriber Relationship Effect jeannine Dates 1 - [facility] [id number] RYLEE GRAY Self Clinical Notes Includes: Clinical Notes from this encounter No Clinical Notes Recorded
--- OUTSIDE RECORDS SUMMARY | 2024-10-30 06:47 | XMS_ITS ---
Care Plan - [facility] Created on: October 30, 2024 RYLEE GRAY : 1960 Sex: Male Author Organization [facility] Address [address] [place] [address] Phone Care Team Providers Care Utility Spray Operator Name Role Phone MARCIE WALTERS, SADIE Giraldo Unavailable
--- OUTSIDE RECORDS SUMMARY | 2024-10-30 06:47 | XMS_ITS | Referral Summary ---
Author Organization [facility] Address [address] [place] [address] Care Team Providers Care Supervisor Drawing Name Role Phone Katina Casiano DO Unavailable [phone] Tracey Ang PA Unavailable [phone] Natalie Baum Primary Care Provider [phone] Source Comments [facility],non-owned Affiliates and Associated Physician Practices is amultiple site organization consisting of ambulatory clinics and hospital sitesin [place], [place], [place] and [place]. This disclosure is being madepursuant to the Care Everywhere program and may not contain all information available regarding this patient. Last updated 18.[facility] Allergies Active Allergy Reactions Criticality Noted Date Comments Lisinopril Anaphylaxis,Unknown High 03/27/2015 Penicillins Anaphylaxis High 11/01/2015 Penicillin G Swelling 09/30/2015 Medications * Be aware that medications may not be up to date on this document. Alwaysverify current medications with the patient. Medication Sig Dispensed Refills Start Date End Date Status lamoTRIgine (LAMICTAL) 100 MG tablet 09/14/2020 Active hydrOXYzine pamoate (VISTARIL) 100 MG capsule 07/10/2021 Active sildenafil (VIAGRA) 100 MG tabletIndications: Erectile Dysfunction Take 1 (one) tablet by mouth once as needed 1 hour prior to intercourse Reasons: Erectile Dysfunction 10 tablet 4 01/18/2022 Active Additional Information Patient not taking.Reported on 08/02/2023 nicotine polacrilex (NICORETTE) 4 MG gumIndications:Max otine Dependence Take 1 (one) Each by mouth as needed for Smoking Cessation Reasons: Nicotine Addiction 100 Each 3 01/19/2022 Active Additional Information Patient not taking.Reported on 01/29/2024 nicotine polacrilex (COMMIT) 4 MG lozengeIndications :Nicotine Dependence Take 1 (one) Each by mouth as needed for Smoking Cessation Reasons: Nicotine Addiction 108 lozenge 3 01/19/2022 Active Additional Information Patient not taking.Reported on 01/29/2024 acetaminophen (TYLENOL) 500 MG capsuleIndications :Pain Take 1 (one) capsule by mouth every 4 hours as needed for Fever or Pain Reasons: Pain Active albuterol (Proventil;Ventoli n) (2.5 MG/3ML) 0.083% nebulizer solutionIndication s:Centrilobular emphysema (HCC),Asthma-COPD overlap syndrome (HCC) Inhale 2.5 (two and one-half) mg by mouth every 4 hours as needed for Shortness of Breath 75 mL 6 12/14/2022 Active fluticasone propionate (Flonase) 50 MCG/ACT nasal sprayIndications:A sthma-COPD overlap syndrome (HCC) SHAKE LIQUID AND USE 2 SPRAYS IN EACH NOSTRIL EVERY DAY 16 g 11 12/14/2022 Active loratadine (Claritin) 10 MG tabletIndications: Seasonal allergic rhinitis, unspecified trigger Take 1 (one) tablet by mouth once daily 90 tablet 4 01/10/2023 Active Additional Information Patient not taking.Reported on 08/02/2023 aspirin (Aspirin Low Dose) 81 MG chew tablet CHEW AND SWALLOW 1 TAB DAILY 90 tablet 3 02/13/2023 Active tiotropium (Spiriva Respimat) 2.5 MCG/ACT inhalerIndications :Pulmonary emphysema, unspecified emphysema type (HCC),Asthma, unspecified asthma severity, unspecified whether complicated, unspecified whether persistent (HCC) Inhale 2 (two) puffs by mouth once daily 12 g 4 03/14/2023 Active Additional Information Patient not taking.Reported on 01/29/2024 triamcinolone acetonide (Kenalog) 0.1 % cream Apply to affected area 2 times daily 60 g 04/26/2023 Active Additional Information Patient not taking.Reported on 01/29/2024 varenicline (Chantix) 1 MG tabletIndications: Smoking Cessation Therapy Take 1 (one) tablet by mouth 2 times daily Reasons: Treatment to Stop Smoking 60 tablet 2 05/30/2023 Active Additional Information Patient not taking.Reported on 01/29/2024 tadalafil (Cialis) 20 MG tabletIndications: Erectile Dysfunction Take 1 (one) tablet by mouth once daily as needed (before sex for a better erection) Reasons: Erectile Dysfunction 10 tablet 1 06/29/2023 Active Additional Information Patient not taking.Reported on 01/29/2024 latanoprost (Xalatan) 0.005 % ophthalmic solution INSTILL ONE DROP INTO BOTH EYES AT NIGHT 06/20/2023 Active ziprasidone (Geodon) 80 MG capsule 07/25/2023 Active Symbicort 160-4.5 MCG/ACT inhalerIndications :Centrilobular emphysema (HCC),Asthma-COPD overlap syndrome (HCC) Inhale 2 (two) puffs by mouth once daily 10.2 g 3 08/29/2023 Active alfuzosin CR 24hr (Uroxatral) 10 MG tablet Take 1 (one) tablet by mouth once daily 90 tablet 3 09/18/2023 Active albuterol HFA (Proventil; Ventolin; Proair) 108 (90 Base) MCG/ACT inhalerIndications :Centrilobular emphysema (HCC),Asthma-COPD overlap syndrome (HCC) Inhale 2 (two) puffs by mouth every 6 hours as needed 8 g 1 01/05/2024 Active busPIRone (Buspar) 7.5 MG tablet Take 1 (one) tablet by mouth 2 times daily 01/23/2024 Active atorvastatin (Lipitor) 40 MG tablet Take 1 (one) tablet by mouth once daily 90 tablet 3 01/29/2024 Active carvedilol (Coreg) 12.5 MG tablet Take 1 (one) tablet by mouth 2 times daily with morning and evening meal 180 tablet 3 01/29/2024 Active eplerenone (Inspra) 25 MG tabletIndications: Heart failure with reduced ejection fraction (HCC) Take 1 (one) tablet by mouth once daily 90 tablet 3 01/29/2024 Active hydroCHLOROthiazid e (Hydrodiuril) 25 MG tablet Take 1 (one) tablet by mouth once daily 90 tablet 3 01/29/2024 Active omeprazole (PriLOSEC) 40 MG capsuleIndications :Gastroesophageal reflux disease without esophagitis Take 1 (one) capsule by mouth daily before breakfast 90 capsule 3 01/29/2024 Active Active Problems Problem Noted Date Diagnosed Date Nonrheumatic mitral valve regurgitation 05/30/20 23 Assessment & Plan (05/30/2023 3:05 PM CDT): Clearly mild to moderate and stable. No indication for surgical or mitral clip. patient reassured Sleep apnea 01/04/2023 Assessment & Plan (01/04/2023 2:27 PM SPECIAL EFFECTS MAKEUP ARTIST): - sleep study pending Fatigue 01/04/2023 Assessment & Plan (01/04/2023 2:28 PM SPECIAL EFFECTS MAKEUP ARTIST): - Check TSH - pending sleep study - DDx: multi -- age/debility vs. thyroid vs. shayne/ohs vs. HF Weight loss 07/29/2022 Assessment & Plan (07/29/2022 6:39 PM CDT): - 252 > 229, 1 yr period, fluctuates - Early satiety and decreased hunger, not cooking as much - unclear etiology, need to r/o malignancy - C-scope - labs Healthcare maintenance 07/29/2022 Assessment & Plan (01/04/2023 2:26 PM SPECIAL EFFECTS MAKEUP ARTIST): - Due for TDap, Zoster, Covid outside - Due for HIV screening - Urged tobacco cessation, rx chantix Assessment & Plan (07/29/2022 6:40 PM CDT): - PCV20, flu shots today - Due for tdap, covid, zoster - due for HIV screen - tobacco cessation - c-scope for dark stools Neuropathy 07/29/2022 Assessment & Plan (07/29/2022 6:40 PM CDT): - check b12 Gynecomastia 07/29/2022 Assessment & Plan (01/04/2023 2:19 PM SPECIAL EFFECTS MAKEUP ARTIST): - Will try to resend Eplerenone, previously denied Assessment & Plan (07/29/2022 6:53 PM CDT): DDx: Likely Rx (Spironolactone) vs. Obesity vs. hypogonadism vs. idiopathic - Will ask cardiology to consider switching from spironolactone to epleronone - Continue weight loss effort - If refractory, consider testosterone and TSH w/u PAD (peripheral artery disease) 06/29/2022 Assessment & Plan (05/30/2023 3:06 PM CDT): Worsening of ? claudication/leg pain with abnormal LYNNETTE. Will refer to vascular surgery. strongly advised cigarette cessation again Assessment & Plan (06/29/2022 10:43 AM CDT): MIld atherosclerosis of left lower extremity. Continue ASA and high dose statin, encouraged tobacco cessation. Hypertension, secondary 01/05/2022 Sleep talking 01/05/2022 Gastroesophageal reflux disease without esophagi tis 01/05/2022 Assessment & Plan (01/04/2023 2:26 PM SPECIAL EFFECTS MAKEUP ARTIST): - Likely sleep-related, obesity, SHAYNE - Cont. PPI Sleep choking syndrome 01/05/2022 PND (paroxysmal nocturnal dyspnea) 01/05/2022 Bipolar affective disorder 12/24/2021 Back pain 12/24/2021 Family history of other specified conditions Asthma-COPD overlap syndrome 11/11/2021 Assessment & Plan (01/04/2023 2:18 PM SPECIAL EFFECTS MAKEUP ARTIST): - Tob cessation Chronic midline low back pain without sciatica 0 11/09/2021 Lumbosacral disc disease 11/09/2021 Foraminal stenosis of lumbar region 11/09/2021 Heart failure with reduced ejection fraction 09/2021 Assessment & Plan (05/30/2023 3:04 PM CDT): HF with EF recovered to normal. Continue current treatment. Assessment & Plan (01/04/2023 2:16 PM SPECIAL EFFECTS MAKEUP ARTIST): - See HTN above - Pt not taking Spirono due to gynecomastia. Will attempt eplerenone - Remains on ASA, Statin, Coreg - No MARINA/ARB - Follows with Dr. Cesilia Cedillo Assessment & Plan (06/29/2022 10:41 AM CDT): Stable. HFrecEF, of 68%. Continue current regimen coreg 12.5mg BID, aldactone 50mg daily. Assessment & Plan (02/08/2021 12:53 PM CDT): Improved to normal by TTE 06/2020 Continue current rx hx ACEi angioedema Lumbar spondylosis 09/19/2019 Essential hypertension 07/11/2019 Assessment & Plan (01/04/2023 2:15 PM SPECIAL EFFECTS MAKEUP ARTIST): - Stable, despite holding spirono due to gynecomastia - Eplerenone denied, will retry. Discussed with patient about good Rx - If further denial, will discuss with Dr. Lomas. May benefit from change to SGLT2i with or w/o MRA Assessment & Plan (07/29/2022 6:37 PM CDT): - mgmt per cards - coreg 12.5bid, spirono 50 Assessment & Plan (02/08/2021 12:53 PM CDT): BP in good range. continue current medications Panlobular emphysema 08/09/2018 Tobacco abuse 11/06/2017 Assessment & Plan (01/04/2023 2:13 PM SPECIAL EFFECTS MAKEUP ARTIST): - Encouraged cessation, ready to quit - Chantix Assessment & Plan (07/29/2022 6:36 PM CDT): - 1/2 ppd x30 years - Urged cessation, has patches, gum at home - Stable lung nodules on CT, continue yearly Assessment & Plan (02/08/2021 12:54 PM CDT): strongly encouraged to quit Major depressive disorder, s kourtney episode, severe without psychotic features 11/02/2015 Assessment & Plan (07/29/2022 6:35 PM CDT): PHQ-9 zero today - Cont. Lamictal, Geodon, Atarax prn Resolved Problems Problem Noted Date Diagnosed Date Resolved Date Dark stools 07/29/2022 01/04/2023 Assessment & Plan (07/29/2022 6:41 PM CDT): - R/o malignancy - Labs: CBC, iron panel - C-scope Dark brown urine 07/29/2022 01/04/2023 Assessment & Plan (07/29/2022 6:44 PM CDT): - DDx: Rhabdo (hip and LLE pain) vs. renal dysfunction vs. hemolysis vs. AIP (endorses some peripheral neuropathy) vs. dehydration (less-likely as drinks plenty of water) - Labs: CBC, CMP, CK, UA Dilutional hyponatremia 11/06/201706/30 HTN (hypertension), benign 11/06/2017 0 07/11/2019 Acute on chronic systolic heart failure 01/05/2022 Immunizations Name Administration Dates Next Due COVMARK RADER PRIMARY 18+YR 01/17/2021, INFLUENZA 08/13/2020 INFLUENZA VACCINE, QUADR. (A FLURIA, FLUZONE QUADRIVALENT; 6MO+) (IIV4) 07/17/2017,09/29/2016 INFLUENZA VACCINE, QUADR. (F LUZONE; FLULAVAL; FLUARIX; AFLURIA QUADRIVALENT; 6MO+), 0.5 ML (IIV4) 09/29/2023,08/04/2020,07/11/2019,2017,11/02/2015 MODERNA SARS-COV-2 COVID-19 VACCINE 0.25ML 09/14/2021 PNEUMOCOCCAL PCV20 CONJ VAC IM 07/29/2022 PNEUMOCOCCAL PPSV23 07/11/2019 TDAP, HISTORIC VACCINE 09/29/2023,07/17/2017 iNFLUENZA VACCINE, RECOM-MARY, QUADR. (FLUBLOCK QUADRIVALENT; 18Y+) (RIV4) 07/29/2022,07/26/2021 Social History Tobacco Use Types Packs/Day Years [...] on file Sexual Orientation Not on file Last Filed Vital Signs Vital Sign Reading Time Taken Comments Blood Pressure 118/72 01/29/2024 12:43 PM CDT Pulse 84 01/29/2024 12:43 PM CDT Temperature 36.7 ??C (98 ??F) 08/02/2023 9:38 AM CDT Respiratory Rate 18 06/07/2023 10:20 AM CDT Oxygen Saturation 96% 01/29/2024 12:43 PM CDT Inhaled Oxygen Concentration - - Weight 102.1 kg (225 lb) 01/29/2024 12:43 PM CDT Height 175.3 cm (5' 9 ) 01/29/2024 12:43 PM CDT Body Mass Index 33.23 01/29/2024 12:43 PM CDT Functional Status Functional Status Response Date of [...] person have difficulty concentrating/remembering/making decisions? No 12/07/2022 Plan of Treatment Not on file Goals Goal Patient Goal Type Associated Problems Recent Progress Patient-Stated? Author Mobility General No Stephanie Gallegos, RN Note: Expected end date: *10/30/2019 The goal is to maintain or improve your mobility at the optimum level for you. Interventions: Procedures Procedure Name Priority Date/Time Associated Diagnosis Comments ENDOSCOPY, COLON, SCREENING Routine 12/07/2022 10:04 AM SPECIAL EFFECTS MAKEUP ARTIST COMPREHENSIVE METABOLIC PANEL Routine 08/09/2022 1:47 PM CDT Weight loss HEPATITIS C AB W/RFLX TO HCV RNA QN PCR 09/19/2019 9:17 AM SPECIAL EFFECTS MAKEUP ARTIST from Last 3 Months or Most Recently Relevant to Health Maintenance Results * ENDOSCOPY, COLON, SCREENING (12/07/2022 10:04 AM SPECIAL EFFECTS MAKEUP ARTIST) Report Endoscopy POC Endoscopy Department Report _ Patient Name: Josafat Calvo ?Procedure Date: 12/07/2022 10:04 AM ?Date of : 1960 Classification: Outpatient ?Gender: Male Ethnicity: Not or ? Race: Black or _ Providers: ?Tal Alsabbagh Referring MD: ? Ian Pollock (Referring MD) Procedure: ?Colonoscopy Indications: ?High risk colon cancer surveillance: Personal ?history of colonic polyps, Family history of colon ?cancer in a first-degree relative before age 60 ?years Medications: ?Monitored Anesthesia Care Description of Procedure: Pre-Anesthesia Assessment: ?- Prior to the procedure, a History and Physical ?was performed, and patient medications and ?allergies were reviewed. The patient's tolerance of ?previous anesthesia was also reviewed. The risks ?and benefits of the procedure and the sedation ?options and risks were discussed with the patient. ?All questions were answered, and informed consent ?was obtained. Prior Anticoagulants: The patient has ?taken no previous anticoagulant or antiplatelet ?agents. ASA Grade Assessment: II - A patient with ?mild systemic disease. After reviewing the risks ?and benefits, the patient was deemed in ?satisfactory condition to undergo the procedure. ?After I obtained informed consent, the scope was ?passed under direct vision. Throughout the ?procedure, the patient's blood pressure, pulse, and ?oxygen saturations were monitored continuously. The ?Colonoscope was introduced through the anus and ?advanced to the cecum, identified by appendiceal ?orifice and ileocecal valve. The colonoscopy was ?performed without difficulty. The patient tolerated ?the procedure well. The quality of the bowel ?preparation was adequate to identify polyps. The ?ileocecal valve, appendiceal orifice, and rectum ?were photographed. ? Findings: ? The perianal and digital rectal examinations were normal. ? Four sessile polyps were found in the ascending colon. The polyps were 4 ? to 6 mm in size. These polyps were removed with a cold snare. Resection ? and retrieval were complete. ? The retroflexed view of the distal rectum and anal verge was normal and ? showed no anal or rectal abnormalities. ? Estimated Blood Loss: ? Estimated blood loss was minimal. Complications: ?No immediate complications. Impression: ? - Four 4 to 6 mm polyps in the ascending colon, ?removed with a cold snare. Resected and retrieved. ?- The distal rectum and anal verge are normal on ?retroflexion view. Recommendation: ? - Patient has a contact number available for ?emergencies. The signs and symptoms of potential ?delayed complications were discussed with the ?patient. Return to normal activities tomorrow. ?Written discharge instructions were provided to the ?patient. ?- Resume previous diet. ?- Continue present medications. ?- Await pathology results. ?- Repeat colonoscopy in 3 - 5 years for ?surveillance based on pathology. ?- Return to primary care physician as previously ?scheduled. ? Attending Participation: ??I personally performed the entire procedure. ? Procedure Code(s): ? --- Professional --- ? 99839, Colonoscopy, flexible; with removal of tumor(s), polyp(s), or ? other lesion(s) by snare technique Diagnosis Code(s): ?--- Professional --- ?Z86.010, Personal history of colonic polyps ?K63.5, Polyp of colon ?Z80.0, Family history of malignant neoplasm of ?digestive organs CPT copyright 2019 [employer]. All rights reserved. The codes documented in this report are preliminary and upon material handler 1st shift review may be revised to meet current compliance requirements. Tal Mccormick, 12/07/2022 10:49:20 AM Note Initiated On: 12/07/2022 10:04 AM Number of Addenda: 0 ? [facility] ? [address] [place] [address] [facility] 12/07/2022 10:0 4 AM SPECIAL EFFECTS MAKEUP ARTIST Rae Mccormick MD GI PRO CEDURE ORDERABLES [facility] * (ABNORMAL) COMPREHENSIVE METABOLIC PANEL (08/09/2022 1:47 PM CDT) Glucose 112(H) 65 - 99 mg/dL [facility] Comment: ? Fasting reference interval For someone without known diabetes, a glucose value between 100 and 125 mg/dL is consistent with prediabetes and should be confirmed with a follow-up test. BUN 8 7 - 25 mg/dL [facility] Creatinine 0.78 0.70 - 1.35 mg/dL [facility] eGFR by Cystatin C 102 > OR = 60 mL/min/1. 73m2 [facility] Comment: The eGFR is based on the CKD-EPI 2020 equation. To calculate the new eGFR from a previous Creatinine or Cystatin C result, go to https://www.kidney.org/professionals/ kdoqi/gfr%5Fcalculator BUN/Creatinine Ratio NOT APPLICABLE 6 - 22 (calc) [facility] Sodium 138 135 - 146 mmol/L [facility] Potassium 3.4(L) 3.5 - 5.3 mmol/L [facility] Chloride 103 98 - 110 mmol/L [facility] CO2 26 20 - 32 mmol/L [facility] Calcium 9.0 8.6 - 10.3 mg/dL [facility] Protein Total 6.6 6.1 - 8.1 g/dL [facility] Albumin 3.9 3.6 - 5.1 g/dL [facility] Globulin Total 2.7 1.9 - 3.7 g/dL (calc) [facility] Albumin/Globuli n Ratio 1.4 1.0 - 2.5 (calc) [facility] Bilirubin Total 0.4 0.2 - 1.2 mg/dL [facility] Alkaline Phosphatase 105 35 - 144 U/L [facility] AST 31 10 - 35 U/L [facility] ALT 38 9 - 46 U/L [facility] Comment: Test Performed at: [facility] [id number] [place] [address] ??[phone] PRUDENCIO ALDANA DO,MPH Blood BLOOD SPECIMEN / Unknown 08/09/2022 1:47 PM CDT 08/09/2022 1:50 PM CDT Ian Pollock MD LAB - CHEMISTRY JANAE ELIAS [facility] [address] [place] [address] * HEPATITIS C AB W/RFLX TO HCV RNA QN PCR (09/19/2019 9:17 AM SPECIAL EFFECTS MAKEUP ARTIST) Hepatitis C Antibody NON-REACTI VE NON-REACT FELY [facility] Signal to Cut-Off 0.03 <1.00 [facility] Comment: HCV antibody was non-reactive. There is no laboratory evidence of HCV infection. In most cases, no further action is required. However, if recent HCV exposure is suspected, a test for HCV RNA (test code 47660) is suggested. For additional information please refer to http://education.3 Four 5 Group/faq/HDU09y6 (This link is being provided for informational/ educational purposes only.) Test Performed at: [facility] [address] [place] [address], [place] ??[phone] PRUDENCIO ALDANA DO,MPH 09/19/2019 9:17 AM SPECIAL EFFECTS MAKEUP ARTIST 09/19/2019 9:21 AM SPECIAL EFFECTS MAKEUP ARTIST Monica Tellez [employer] LAB - CHEMI STRY ORDERABLES [facility] [address] [place] [address] from Last 3 Months or Most Recently Relevant to Health Maintenance Advance Directives Documents on File Type Date Recorded Patient Enterprise Architect Expl anation Adv Directive/Living Will/POA 11/05/2015 12:22 PM * Full Code (Latest Code Status on File) Date Activated Date Inactivated Comments 11/01/2015 9:11 PM 11/05/2015 6:02 AM Care Teams Supervisor Drawing Relationship Specialty Start Date End Date Natalie Baum [address] [place] [address] PCP - General 05/06/24 Katina Casiano DO [address] OF [facility] INTER[facility]IC[facility] [place], [place] Hospitalist 06/05/23 Tracey Ang PA [address] [place] [address] Physician Recruiting Internship 08/15/23
--- OUTSIDE RECORDS SUMMARY | 2024-10-30 06:47 | XMS_ITS | Encounter Summary ---
Author Organization [facility] Address [address] [place] [address] Care Team Providers Care Hairspring Truer Name Role Phone Katina Casiano DO Unavailable [phone] Tracey Ang PA Unavailable [phone] Belkis Angel ORTHODONTIC BAND MAKER-STERILE PREPARATION TECHNICIAN Primary Care Provider + Reason for Visit * Reason Onset Date Comments MEDICATION REFILL 01/05/2024 Encounter Details Date Type Department Care Team (Late st Contact Info) Description 01/05/2024 Refill [facility] - Pulmonology [address] [place] [address] [place] [id number] Adebayo Weeks MD [address] [place] [address] MEDICATION REFILL Social History Tobacco Use Types [...] on filedocumented in this encounter Care Teams Hairspring Truer Relationship Specialty Start Date End Date Belkis Angel, ORTHODONTIC BAND MAKER-STERILE PREPARATION TECHNICIAN [address] [facility] [address] [place] [address] PCP - General Nurse Practitioner 08/29/23 05/05/24 Katina Casiano DO [address] [facility] [address] [facility] INTERNAL MEDIC[facility] [place], [place] Hospitalist 06/05/23 Tracey Ang PA [address] [facility] [address] [place] [address] Physician Charge Lpn 08/15/23 documented as of this encounter
--- OUTSIDE RECORDS SUMMARY | 2024-10-30 06:47 | XMS_ITS | Clinical Summary ---
Author Organization [facility] Address [address] [place] [address] Phone Care Team Providers Care Marketing Forecaster Name Role Phone SADIE JACK MD Unavailable Unavailable Reason for Visit and Chief Complaint RX ISSUE/REFILL Plan of Treatment No Plan of Treatment [...] On 0 10:36AM By PAUL DAVIS-ANAYA ; [facility] Gabapentin 600 MG Oral Tablet 05/26/2020 Provider: PAUL MAJANO Diagnosis: Radiculopathy, l umbar region TAKE 1 TABLET BY MOUTH THREE TIMES DAILY. Last Documented On 0 2:54PM By PAUL NUNEZ ; [facility] Triamcinolone Acetonide 0.1% External Cream 10/07/2019 Provider: Diagnosis: Last Documented On 9 11:28AM By Faye MEJÍA ; [facility] Spironolactone 50 MG Oral Tablet 10/07/2019 Provider : Diagnosis: Last Documented On 9 11:27AM By Faye MEJÍA ; [facility] Omeprazole 40 MG Oral Capsule Delayed Release 10/07/20 Provider: Diagnosis: Last Documented On 9 11:27AM By Faye MEJÍA ; [facility] Ibuprofen 600 MG Oral Tablet 10/07/2019 Provider: Diagnosis: Last Documented On 9 11:27AM By Faye MEJÍA ; [facility] hydrOXYzine Pamoate 50 MG Oral Capsule 10/07/2019 Pr ovider: Diagnosis: Last Documented On 9 11:26AM By Faye MEJÍA ; [facility] Carvedilol 25 MG Oral Tablet 10/07/2019 Provider: Diagnosis: Last Documented On 9 11:26AM By Faye MEJÍA ; [facility] Medications Administered Includes: Administered Medications from this encounter No Administered Medications Recorded Results Includes: Results discussed during this encounter No Results Recorded For Specified Dates History of Present Illness Includes: History of Present Illness from this encounter No History of Present Illness Recorded Social History Description Last Updated Smoker 04/29/2020 Last Documented On 0 10:13AM ; [facility] Smoking status : Current everyday smoker 10/07/2019 Last Documented On 0 10:13AM ; [facility] Medical History Includes: Medical History addressed during [...] Active Last Documented On 0 8:29AM ; [facility] Lisinopril Allergy 10/07/2019 Active Last Documented On 0 8:29AM ; [facility] Encounters Encounter Provider Location Date Check-In Time Check-Out Time Diagnosis RX ISSUE/REFILL PAUL DAVIS-ANAYA 05/11/2020 10:13AM 11:59PM Insurance Includes: Active Insurance Policies Plan Name Member ID Group # Subscriber Relationship Effect jeannine Dates 1 - [facility] [id number] RYLEE GRAY Self Clinical Notes Includes: Clinical Notes from this encounter No Clinical Notes Recorded
--- OUTSIDE RECORDS SUMMARY | 2024-10-30 06:47 | XMS_ITS ---
Author Organization [facility] Address [address] [place] [address] Phone Care Team Providers Care Telegraph Equipment Maintainer Name Role Phone SADIE JACK MD Unavailable Unavailable Plan of Treatment Instructions to patient Intervention and counseling on cessation of tobacco use : Patient recieved smoking cessation handout Last Documented On 0 8:27AM ; [facility] Intervention and counseling on cessation of tobacco use : Patient recieved smoking cessation handout Last Documented On 0 9:50AM ; [facility] Intervention and counseling on cessation of tobacco use : Patient recieved smoking cessation handout Last Documented On 0 11:06AM ; [facility] Intervention and counseling on cessation of tobacco use : Patient recieved smoking cessation handout Last Documented On 9 11:25AM ; [facility] Education and Decision Aids were provided during visit for: Pill Count: 0 Last Documented On 0 9:52AM ; [facility] Assessments Includes: Assessments for all patient encounters Findings Encounter Date Chronic pain syndrome PAIN MANAGEMENT FO LLOW UP with PAUL L BHARATHI [facility] 04/29/2020 Last Documented On 0 2:51PM ; [facility] Lumbar canal stenosis with n eurogenic claudication PAIN MANAGEMENT FOLLOW UP with PAUL L BHARATHI [facility] 04/29/2020 Last Documented On 0 2:51PM ; [facility] Myalgia PAIN MANAGEMENT [facility] 04/29/2020 Last Documented On 0 2:51PM ; [facility] Myalgia PAIN MANAGEMENT FOLLOW UP with T KAHLIL L BHARATHI [facility] 04/29/2020 Last Documented On 0 2:51PM ; [facility] Sacroiliitis PAIN MANAGEMENT FOLLOW UP with T KAHLIL L BHARATHI [facility]- 04/29/2020 Last Documented On 0 2:51PM ; [facility] Chronic pain syndrome PAIN MANAGEMENT FO LLOW UP with PAUL L BHARATHI ANP- 12/27/2019 Last Documented On 0 12:47PM ; [facility] Lumbar radiculopathy PAIN MANAGEMENT FOL LOW UP with PAUL L BHARATHI ANP- 12/27/2019 Last Documented On 0 12:47PM ; [facility] Myalgia PAIN MANAGEMENT FOLLOW UP with T KAHLIL L BHARATHI ANP- 12/27/2019 Last Documented On 0 12:47PM ; [facility] Sacroiliitis PAIN MANAGEMENT FOLLOW UP with T KAHLIL L BHARATHI [facility]- 12/27/2019 Last Documented On 0 12:47PM ; [facility] Chronic pain syndrome PAIN MANAGEMENT FO LLOW UP with PAUL L BHARATHI [facility] 11/28/2019 Last Documented On 0 11:13AM ; [facility] Lumbar radiculopathy PAIN MANAGEMENT FOL LOW UP with PAUL L BHARATHI [facility]- 11/28/2019 Last Documented On 0 11:13AM ; [facility] Myalgia PAIN MANAGEMENT FOLLOW UP with T KAHLIL L BHARATHI [facility]- 11/28/2019 Last Documented On 0 11:13AM ; [facility] Sacroiliitis PAIN MANAGEMENT FOLLOW UP with T KAHLIL L BHARATHI [facility] 11/28/2019 Last Documented On 0 11:13AM ; [facility] Chronic pain syndrome PAIN MANAGEMENT NE W CONSULT with PAUL L BHARATHI [facility]- 10/07/2019 Last Documented On 9 9:45AM ; [facility] Lumbar radiculopathy PAIN MANAGEMENT NEW CONSULT with PAUL L BHARATHI [facility]P- 10/07/2019 Last Documented On 9 9:45AM ; [facility] Myalgia PAIN MANAGEMENT NEW CONSULT with PAUL L BHARATHI [facility] 10/07/2019 Last Documented On 9 9:45AM ; [facility] Sacroiliitis PAIN MANAGEMENT NEW CONSULT with PAUL DAVIS-BC 10/07/2019 Last Documented On 9 9:45AM ; [facility] Instructions Includes: Instructions for all patient encounters Instructions to patient Intervention and counseling on cessation of tobacco use : Patient recieved smoking cessation handout Last Documented On 0 8:27AM ; [facility] Intervention and counseling on cessation of tobacco use : Patient recieved smoking cessation handout Last Documented On 0 9:50AM ; [facility] Intervention and counseling on cessation of tobacco use : Patient recieved smoking cessation handout Last Documented On 0 11:06AM ; [facility] Intervention and counseling on cessation of tobacco use : Patient recieved smoking cessation handout Last Documented On 9 11:25AM ; [facility] Education and Decision Aids were provided during visit for: Pill Count: 0 Last Documented On 0 9:52AM ; [facility] Medical Equipment - Implanted Devices Includes: Current and historical Devices No Medical Equipment Recorded Medications Includes: Current and historical Medications Current Medications (continue as prescribed) Tylenol with Codeine #3 300-30 MG Oral Tablet 06/24/2020 Provider: PAUL GALLEGO Diagnosis: Radiculopathy, l umbar region 1 po BID prn Last Documented On 0 10:36AM By PAUL DAVIS-BC ; [facility] Gabapentin 600 MG Oral Tablet 05/26/2020 Provider: PAUL DAVIS -BC Diagnosis: Radiculopathy, l umbar region TAKE 1 TABLET BY MOUTH THREE TIMES DAILY. Last Documented On 0 2:54PM By PAUL DAVIS-BC ; [facility] Triamcinolone Acetonide 0.1% External Cream 10/07/2019 Provider: Diagnosis: Last Documented On 9 11:28AM By Faye MEJÍA ; [facility] Spironolactone 50 MG Oral Tablet 10/07/2019 Provider : Diagnosis: Last Documented On 9 11:27AM By Faye MEJÍA ; [facility] Omeprazole 40 MG Oral Capsule Delayed Release 10/07/20 Provider: Diagnosis: Last Documented On 9 11:27AM By Faye MEJÍA ; [facility] Ibuprofen 600 MG Oral Tablet 10/07/2019 Provider: Diagnosis: Last Documented On 9 11:27AM By Faye MEJÍA ; [facility] hydrOXYzine Pamoate 50 MG Oral Capsule 10/07/2019 Pr ovider: Diagnosis: Last Documented On 9 11:26AM By Faye MEJÍA ; [facility] Carvedilol 25 MG Oral Tablet 10/07/2019 Provider: Diagnosis: Last Documented On 9 11:26AM By Faye MEJÍA ; [facility] Past Medications on file Tylenol with Codeine #3 300-30 MG Oral Tablet 05/12/2020 - 06/23/2020 Provider: PUAL NUNEZ Diagnosis: Radiculopathy, l umbar region 1 po BID prn Last Documented On 0 10:31AM By PAUL NUNEZ ; [facility] Lyrica 150 MG Oral Capsule 04/29/2020 - 06/24/2020 Provider: PAUL NUNEZ Diagnosis: Spinal stenosis, lumbar region with neurogenic claudication 1 CAPSULE TWO TIMES A DAY Last Documented On 0 10:24AM By PAUL NUNEZ ; [facility] Gabapentin 600 MG Oral Tablet 04/10/2020 - 05/26/2020 Provider: PAUL NUNEZ Diagnosis: Radiculopathy, l umbar region TAKE 1 TABLET BY MOUTH THREE TIMES DAILYdo not fill before 04/14/20 Last Documented On 0 2:41PM By PAUL NUNEZ ; [facility] Gabapentin 600 MG Oral Tablet 03/16/2020 - 04/09/2020 Provider: PAUL NUNEZ Diagnosis: Radiculopathy, l umbar region TAKE 1 TABLET BY MOUTH THREE TIMES DAILY Last Documented On 0 7:19AM By PAUL DEMARCO ; [facility] Gabapentin 600 MG Oral Tablet 02/19/2020 - 03/16/2020 Provider: PAUL DEMARCO Diagnosis: Radiculopathy, l umbar region One tablet three times a day Last Documented On 0 2:26PM By PAUL DEMARCO ; [facility] Tylenol with Codeine #3 300-30 MG Oral Tablet 02/19/2020 - 05/11/2020 Provider: PAUL DEMARCO Diagnosis: Radiculopathy, l umbar region 1 po TID pr01/25/20 fill date Last Documented On 0 8:42AM By PAUL DEMARCO ; [facility] Tylenol with Codeine #3 300-30 MG Oral Tablet 01/23/2020 - 02/19/2020 Provider: PAUL DEMARCO Diagnosis: Radiculopathy, l umbar region 1 po BID pr01/25/20 fill date Last Documented On 0 2:53PM By PAUL DEMARCO ; [facility] Tylenol with Codeine #3 300-30 MG Oral Tablet 12/27/2019 - 01/22/2020 Provider: PAUL DEMARCO Diagnosis: Radiculopathy, l umbar region 1 po BID prn Last Documented On 0 12:53PM By PAUL NUNEZ ; [facility] Tylenol with Codeine #3 300-30 MG Oral Tablet 11/28/2019 - 12/27/2019 Provider: PAUL DEMARCO Diagnosis: Radiculopathy, l umbar region 1 po BID prn Last Documented On 0 10:22AM By PAUL DEMARCO ; [facility] Gabapentin 300 MG Oral Capsule 11/05/2019 - 04/29/2020 Provider: PAUL DEMARCOBC Diagnosis: Radiculopathy, l umbar region One tablet three times a day Last Documented On 0 8:29AM By Faye MEJÍA ; [facility] Gabapentin 300 MG Oral Capsule 10/07/2019 - 11/05/2019 Provider: PAUL NUNEZ Diagnosis: Radiculopathy, l umbar region as directed QHS x 3 days, BI D x 3 days then TID Last Documented On 0 12:20PM By PAUL NUNEZ ; [facility] Medications Administered Includes: Administered Medications in patient's chart No Administered Medications Recorded Results Includes: Results from 10/30/2023 through 10/30/2024 No Results Recorded For Specified Dates History of Present Illness History of Present Illness not supported for this document type No History of Present Illness Recorded Social History Description Last Updated Smoker 04/29/2020 Last Documented On 0 2:51PM ; [facility] Smoking status : Current everyday smoker 10/07/2019 Last Documented On 9 9:45AM ; [facility] Medical History Includes: Medical History in patient's chart Description Last Updated Reviewed and Unchanged 12/27/2019 Last Documented On 0 12:47PM ; [facility] Family History Includes: Family History in patient's chart No Family History Recorded Review of Systems Review of Systems not supported for this document type No Review of Systems Recorded Mental Status No Mental Status Recorded Functional Status No Functional Status Recorded Physical Exam Physical Exam not supported for this document type No Physical Exam Recorded Allergies Includes: Active, inactive, and resolved Allergies Substance Type Reaction Onset Date Resolved Date Statu s Penicillins Allergy 10/07/2019 Active Last Documented On 0 8:29AM ; [facility] Lisinopril Allergy 10/07/2019 Active Last Documented On 0 8:29AM ; [facility] Insurance Includes: Active Insurance Policies Plan Name Member ID Group # Subscriber Relationship Effect jeannine Dates 1 - [place] [employer] [facility] [id number] RYLEE GRAY Self Clinical Notes Includes: Signed Clinical Notes starting from 11/18/2022 No Clinical Notes Recorded
--- OUTSIDE RECORDS SUMMARY | 2024-10-30 06:47 | XMS_ITS | Encounter Summary ---
Author Organization [facility] Address [address] [place] [address] Care Team Providers Care Senior Application Programmer Name Role Phone Katina Casiano DO Unavailable [phone] Tracey Ang PA Unavailable [phone] Belkis Angel AUTOMATION CONTROL TECHNICIAN-[facility] Primary Care Provider + Reason for Visit * Cardiac (Routine) - Closed Specialty Diagnoses / Procedures Referred By Contac t Referred To Contact Cardiology Diagnoses Heart failure with reduced ejection fraction (HCC) Nonrheumatic mitral valve regurgitation Procedures ECHO COMPLETE FL TTE W/DOPPLER, COMPLETE FL TTE W/O DOPPLER, COMPLETE Tracey Ang PA [address] [place] [address] [facility] [address] [address] Referral ID Status Reason Start Date Expiration Date Visits Re quested Visits Authorized [id number] Closed 01/22/2024 01/21/2025 1 1 Encounter Details Date Type Department Care Team (Latest Contact Info) Description 01/29/2024 1:00 PM CDT Ancillary Procedure [facility] - Echosonography [address] [address] Heart failure with reduced ejection fraction (HCC); Nonrheumatic mitral valve regurgitation Social History Tobacco Use Types Packs/Day Years [...] you. Interventions: documented as of this encounter Procedures Procedure Name Priority Date/Time Associated Diagnosis Comments ECHO COMPLETE Routine 01/29/2024 1:28 PM CDT Heart failure with reduced ejection fraction (HCC) Nonrheumatic mitral valve regurgitation documented in this encounter Results * ECHO COMPLETE (01/29/2024 1:28 PM CDT) BSA 2.6949880 m2 [facility] CV FUJ I PACS LV biplane EF 56 52 - 72 % [facility] CV FUJI PACS LV A2C EF 62 48 - 76 % [facility] CV FUJ I PACS LV A4C EF 53 46 - 74 % [facility] CV FUJ I PACS LV stroke vol BP 56.3 mL SSM CV FUJI PACS LV stroke vol BP index 24.5 mL/m2 [facility] CV FUJI PACS LVOT stroke vol 60.98 mL SSM CV FUJI PACS LVOT stroke vol index 26.50 mL/m2 [facility] CV FUJI PACS LV stroke vol 2D teich 66.209 ml [facility]SM CV FUJI PACS LV Stroke Index 2D Teich 28.78 mL/m2 [facility] CV FUJI PACS LV stroke vol index A4C MOD 54.452 ml/m2 [facility] CV FUJI PACS LVIDd 5.39 4.2 - 5.8 cm SSM CV FUJI PACS LVIDs 4.10 2.5 - 4.0 cm [facility]SM CV FUJI PACS IVSd 2D 0.818 0.6 - 1 cm [facility] CV FUJI PACS LVPWd 0.86 0.6 - 1 cm [facility] CV FUJI PACS Fractional Shortening 2D 24 28 - 44 % [facility] CV FUJI PACS LV ESV BP 43.447 21 - 61 mL SSM CV FUJI PACS LV ESV index BP 18.9 11 - 31 mL/m2 [facility]SM CV FUJI PACS LV ESV A2C 48.903 15 - 75 mL SSM CV FUJI PACS LV ESV index A2C 21.25 9 - 37 mL/m2 [facility]SM CV FUJI PACS LV EDV BP 99.774 62 - 150 mL SSM CV FUJI PACS LV ESV A4C 36.825 22 - 78 mL SSM CV FUJI PACS LV ESV index A4C 16.00 12 - 40 mL/m2 SSM CV FUJI PACS LV EDV index BP 43.4 34 - 74 mL/m2 SSM CV FUJI PACS LV EDV A2C 95.668 59 - 175 mL SSM CV FUJI PACS LV EDV index A2C 41.58 31 - 87 mL/m2 [facility]SM CV FUJI PACS LV EDV A4C 103.355 mL SSM CV FU JI PACS LV ESV 2D 74.378 21 - 61 mL SSM CV FUJI PACS LV EDV index A4C 44.92 37 - 93 mL/m2 SSM CV FUJI PACS LV ESV index 2D 32.33 11 - 31 mL/m2 SSM CV FUJI PACS LV EDV 2D 140.587 62 - 150 mL SSM CV FUJI PACS LV EDV index 2D 61.10 34 - 74 mL/m2 SSM CV FUJI PACS LVOT diam 2.1 cm SSM CV FUJ I PACS LVOT area 3.52 cm2 SSM CV FUJ I PACS LV RWT 0.319 SSM CV FUJ I PACS LV Tena A2C 8.365 cm SSM CV F UJI PACS LV Tena A4C 8.488 cm SSM CV F UJI PACS IVS/LVPW 0.951 SSM CV FUJ I PACS LV mass 2D 164.024 96 - 200 g SSM CV FUJI PACS LV mass index 2D 71.29 50 - 102 g/m2 SSM CV FUJI PACS MV E pk dane 53.946 cm/s SSM CV F UJI PACS MV avg E/e' ratio 8.68 SS M CV FUJI PACS MV A pk dane 94.96 cm/s SSM CV F UJI PACS MV E A ratio 0.57 SSM CV FUJI PACS MV E' lateral dane 9.716 cm/s SS M CV FUJI PACS MV DT 283 ms SSM CV FUJ I PACS MV E' septal dane 4.572 cm/s SSM CV FUJI PACS MV E/e' septal 11.8 SSM C V FUJI PACS MV E/e' lateral 5.552 SSM CV FUJI PACS LA vol BP 49.935 mL SSM CV FUJ I PACS LVOT pk dane 0.97 m/s SSM CV F UJI PACS LVOT mn dane 0.72 m/s SSM CV F UJI PACS LVOT mn grad 2.3 mmHg SSM CV FUJI PACS LVOT Cardiac Output 5.087 l/min SSM CV FUJI PACS LVOT Cardiac Index 2.21 l/min/m2 SSM CV FUJI PACS LA vol index 21.7 16 - 34 mL/m2 SSM CV FUJI PACS LA vol BP A-L 53.356 mL [facility] RVID[facility] 2.8 cm [facility] CV [facility] I PACS RVOT VTI 11.222 cm [facility]SM CV [facility] I PACS TV S' dane 12.426 cm/s SSM CV [facility] I PACS TAPSE 1.978 1.7 cm SSM CV [facility] I PACS RVOT pk dane 0.57 m/s SSM CV F U PACS RA area 18.022 cm2 SSM CV [facility] I PACS AV mn grad 4 mmHg SSM CV FU JI PACS AV pk grad 7 mmHg SSM CV FU JI PACS AV mn dane 1.01 m/s SSM CV [facility] I PACS AV pk dane 1.30 m/s SSM CV [facility] I PACS AV VTI 20.719 cm SSM CV [facility] I PACS LVOT pk grad 3.753 mmHg [facility] LVOT VTI 17.347 cm S[facility] CV [facility] I PACS AV area cont VTI 2.9 cm2 [facility] AV area pk dane 2.6 cm2 [facility] AV Doppler dane index pk dane 0.743 [facility] Dimensionless Index 0.837 [facility] MR VTI 162.236 cm SSM CV [facility] I PACS MV pk dane regurg 521.556 cm/s [facility] MV mn grad 1 mmHg SSM CV FU JI PACS MV pk grad 4 mmHg SSM CV FU JI PACS MV mn dane 0.53 m/s SSM CV [facility] I PACS MV pk dane 98.496 cm/s SSM CV [facility] I PACS MV PHT 83 ms SSM CV [facility] I PACS MV area PHT 2.65 cm2 SSM CV F U PACS MV area cont eq 3.46 cm2 [facility] MV VTI 17.638 cm [facility] CV [facility] I PACS MV decel slope 190.294 cm/s2 [facility] mn grad 1 [facility] RVOT pk grad 1 mmHg [facility] PV mn grad 3 mmHg SSM CV FU JI PACS PV pk dane 117.812 cm/s SSM CV [facility] I PACS PV pk grad 5 mmHg SSM CV FU JI PACS PV mn dane 76.873 cm/s SSM CV FUJ I PACS Ascending aorta 3.32 cm SSM CV FUJI PACS IVC size 1.7 cm SSM CV FUJ I PACS LA ESV A4C MOD Index 18 ml/m2 SSM CV FUJI PACS LA ESV A2C MOD Index 26 ml/m2 SSM CV FUJI PACS [id number] 7.143 cm SSM CV FUJ I PACS [id number] 7.525 cm SSM CV FUJ I PACS Prox Asc Ao Diameter Index 1.443 cm SSM CV FUJI PACS LVIDs index 1.78 1.3 - 2.1 cm/m2 SSM CV FUJI PACS LV LVIDd index 2.34 2.2 - 3.0 cm/m2 SSM CV FUJI PACS Anatomical Region Laterality Modality Ultrasound Narrative 01/29/2024 2:20 PM CDT ?Left??Ventricle: Left ventricle size is normal. Normal wall thickness. Ventricular mass is normal. Normal systolic function. EF by 2D Malone biplane is 56%. Normal wall motion. Normal diastolic function. ?Tricuspid??Valve: Trace regurgitation. Unable to estimate the pulmonary artery systolic pressure due to lack of tricuspid regurgitation. ?Mitral??Valve: Mild to moderate regurgitation. Left Ventricle Left ventricle size is normal. Normal wall thickness. Ventricular mass is normal. Normal systolic function. EF by 2D Malone biplane is 56%. Normal wall motion. Normal diastolic function. Right Ventricle Right ventricle size is normal. Normal systolic function. Left Atrium Left atrium size is normal. Right Atrium Right atrium size is normal. IVC/SVC IVC diameter is less than or equal to 21 mm and decreases greater than 50% during inspiration; therefore the estimated right atrial pressure is normal (~3 mmHg). Mitral Valve Valve structure is normal. Mild to moderate regurgitation. No stenosis. Tricuspid Valve Valve structure is normal. Trace regurgitation. Unable to estimate the pulmonary artery systolic pressure due to lack of tricuspid regurgitation. No stenosis. Aortic Valve Valve structure is trileaflet. No regurgitation. No stenosis. Pulmonic Valve Valve structure is normal. Mild regurgitation. No stenosis. Ascending Aorta Normal sized sinus of Valsalva (aortic root) and ascending aorta. Pericardium No pericardial effusion. Study Details Study quality was adequate. A complete 2D, color Doppler, spectral Doppler and M-mode echocardiogram was performed. The apical, parasternal, subcostal and suprasternal views were obtained. Tracey [facility] documented in this encounter Visit Diagnoses Diagnosis Heart failure with reduced ejection fraction (HCC) Nonrheumatic mitral valve regurgitation documented in this encounter Care Teams Senior Application Programmer Relationship Specialty Start Date End Date Belkis Angel, AUTOMATION CONTROL TECHNICIAN-BELLY RO[employer]ER [address] [address] PCP - General Nurse Practitioner 08/29/23 05/05/24 Katina Casiano DO [address] OF [facility] [place], [place] Hospitalist 06/05/23 Tracey Ang PA [address] [facility] [address] [place] [address] Physician Food Safety Coordinator 08/15/23 documented as of this encounter
--- OUTSIDE RECORDS SUMMARY | 2024-10-30 06:47 | XMS_ITS | Patient Health Summary ---
Author Organization [facility] Address [address] [place] [address] Care Team Providers Care Color Consultant Name Role Phone Katina Casiano DO Unavailable [phone] Tracey Ang PA Unavailable [phone] Natalie Baum Primary Care Provider [phone] Note from [facility],non-owned Affiliates and Associated Physician Practices is amultiple site organization consisting of ambulatory clinics and hospital sitesin [place], [place], [place] and [place]. This disclosure is being madepursuant to the Care Everywhere program and may not contain all information available regarding this patient. Last updated 18.[facility] Allergies * Lisinopril(Anaphylaxis,Unknown) -High Criticality * Penicillins(Anaphylaxis) -High Criticality * Penicillin G(Swelling) Medications * Be aware that medications may not be up to date on this document. Alwaysverify current medications with the patient. * lamoTRIgine (LAMICTAL) 100 MG tablet(Started 09/14/2020) * hydrOXYzine pamoate (VISTARIL) 100 MG capsule(Started 07/10/2021) * sildenafil (VIAGRA) 100 MG tablet(Started 01/18/2022) Take 1 (one) tablet by mouth once as needed 1 hour prior to intercourse Reasons: Erectile Dysfunction 4 refills by 01/18/2023 * nicotine polacrilex (NICORETTE) 4 MG gum(Started 01/19/2022) Take 1 (one) Each by mouth as needed for Smoking Cessation Reasons: Nicotine Addiction 3 refills by 01/19/2023 * nicotine polacrilex (COMMIT) 4 MG lozenge(Started 01/19/2022) Take 1 (one) Each by mouth as needed for Smoking Cessation Reasons: Nicotine Addiction 3 refills by 01/19/2023 * acetaminophen (TYLENOL) 500 MG capsule Take 1 (one) capsule by mouth every 4 hours as needed for Fever or Pain Reasons: Pain * albuterol (Proventil;Ventolin) (2.5 MG/3ML) 0.083% nebulizer solution(Started 12/14/2022) Inhale 2.5 (two and one-half) mg by mouth every 4 hours as needed for Shortness of Breath 6 refills by 12/14/2023 * fluticasone propionate (Flonase) 50 MCG/ACT nasal spray(Started 12/14/2022) SHAKE LIQUID AND USE 2 SPRAYS IN EACH NOSTRIL EVERY DAY 11 refills by 12/14/2023 * loratadine (Claritin) 10 MG tablet(Started 01/10/2023) Take 1 (one) tablet by mouth once daily 4 refills by 01/10/2024 * aspirin (Aspirin Low Dose) 81 MG chew tablet(Started 02/13/2023) CHEW AND SWALLOW 1 TAB DAILY 3 refills by 02/13/2024 * tiotropium (Spiriva Respimat) 2.5 MCG/ACT inhaler(Started 03/14/2023) Inhale 2 (two) puffs by mouth once daily 4 refills by 03/13/2024 * triamcinolone acetonide (Kenalog) 0.1 % cream(Started 04/26/2023) Apply to affected area 2 times daily * varenicline (Chantix) 1 MG tablet(Started 05/30/2023) Take 1 (one) tablet by mouth 2 times daily Reasons: Treatment to Stop Smoking 2 refills by 05/29/2024 * tadalafil (Cialis) 20 MG tablet(Started 06/29/2023) Take 1 (one) tablet by mouth once daily as needed (before sex for a better erection) Reasons: Erectile Dysfunction 1 refill by 06/28/2024 * latanoprost (Xalatan) 0.005 % ophthalmic solution(Started 06/20/2023) INSTILL ONE DROP INTO BOTH EYES AT NIGHT * ziprasidone (Geodon) 80 MG capsule(Started 07/25/2023) * Symbicort 160-4.5 MCG/ACT inhaler(Started 08/29/2023) Inhale 2 (two) puffs by mouth once daily 3 refills by 08/28/2024 * alfuzosin CR 24hr (Uroxatral) 10 MG tablet(Started 09/18/2023) Take 1 (one) tablet by mouth once daily 3 refills by 09/17/2024 * albuterol HFA (Proventil; Ventolin; Proair) 108 (90 Base) MCG/ACT inhaler (Started 01/05/2024) Inhale 2 (two) puffs by mouth every 6 hours as needed 1 refill by 01/04/2025 * busPIRone (Buspar) 7.5 MG tablet(Started 01/23/2024) Take 1 (one) tablet by mouth 2 times daily * atorvastatin (Lipitor) 40 MG tablet(Started 01/29/2024) Take 1 (one) tablet by mouth once daily 3 refills by 01/28/2025 * carvedilol (Coreg) 12.5 MG tablet(Started 01/29/2024) Take 1 (one) tablet by mouth 2 times daily with morning and evening meal 3 refills by 01/28/2025 * eplerenone (Inspra) 25 MG tablet(Started 01/29/2024) Take 1 (one) tablet by mouth once daily 3 refills by 01/28/2025 * hydroCHLOROthiazide (Hydrodiuril) 25 MG tablet(Started 01/29/2024) Take 1 (one) tablet by mouth once daily 3 refills by 01/28/2025 * omeprazole (PriLOSEC) 40 MG capsule(Started 01/29/2024) Take 1 (one) capsule by mouth daily before breakfast 3 refills by 01/28/2025 Active Problems Problem Noted Date Diagnosed Date Nonrheumatic mitral valve regurgitation 05/30/20 23 Sleep apnea 01/04/2023 Fatigue 01/04/2023 Weight loss 07/29/2022 Healthcare maintenance 07/29/2022 Neuropathy 07/29/2022 Gynecomastia 07/29/2022 PAD (peripheral artery disease) 06/29/2022 Hypertension, secondary 01/05/2022 Sleep talking 01/05/2022 Gastroesophageal reflux disease without esophagi tis 01/05/2022 Sleep choking syndrome 01/05/2022 PND (paroxysmal nocturnal dyspnea) 01/05/2022 Bipolar affective disorder 12/24/2021 Back pain 12/24/2021 Family history of other specified conditions Asthma-COPD overlap syndrome 11/11/2021 Chronic midline low back pain without sciatica 0 11/09/2021 Lumbosacral disc disease 11/09/2021 Foraminal stenosis of lumbar region 11/09/2021 Heart failure with reduced ejection fraction 09/2021 Lumbar spondylosis 09/19/2019 Essential hypertension 07/11/2019 Panlobular emphysema 08/09/2018 Tobacco abuse 11/06/2017 Major depressive disorder, s kourtney episode, severe without psychotic features 11/02/2015 Resolved Problems Problem Noted Date Diagnosed Date Resolved Date Dark stools 07/29/2022 01/04/2023 Dark brown urine 07/29/2022 01/04/2023 Dilutional hyponatremia 11/06/201706/30 HTN (hypertension), benign 11/06/2017 0 07/11/2019 Acute on chronic systolic heart failure 01/05/2022 Immunizations * COVID DIOR PRIMARY 18+YR(Given 01/17/2021, 01/05/2021) * INFLUENZA(Given 08/13/2020) * INFLUENZA VACCINE, QUADR. (AFLURIA, FLUZONE QUADRIVALENT; 6MO+) (IIV4)(Given 07/17/2017, 09/29/2016) * INFLUENZA VACCINE, QUADR. (FLUZONE; FLULAVAL; FLUARIX; AFLURIA QUADRIVALENT; 6MO+), 0.5 ML (IIV4)(Given 09/29/2023, 08/04/2020, 07/11/2019, 08/09/2018, 11/02/2015) * MODERNA SARS-COV-2 COVID-19 VACCINE 0.25ML(Given 09/14/2021) * PNEUMOCOCCAL PCV20 CONJ VAC IM(Given 07/29/2022) * PNEUMOCOCCAL PPSV23(Given 07/11/2019) * TDAP, HISTORIC VACCINE(Given 09/29/2023, 07/17/2017) * iNFLUENZA VACCINE, RECOM-MARY, QUADR. (FLUBLOCK QUADRIVALENT; 18Y+) (RIV4)(Given 07/29/2022, 07/26/2021) Social History Tobacco Use Types Packs/Day Years [...] Mass Index 33.23 01/29/2024 12:43 PM CDT Procedures * ECHO COMPLETE(Performed 01/29/2024) Performed for Heart failure with reduced ejection fraction (HCC), Nonrheumatic mitral valve regurgitation * IMAGING/RADIOLOGY/XRAY RESULTS ORDER(Performed 08/29/2023) * VAS ARTERIAL ANKLE ARM INDEX(Performed 08/02/2023) Performed for PAD (peripheral artery disease) ([facility]) * ECHO COMPLETE(Performed 05/15/2023) Performed for Mitral valve insufficiency, unspecified etiology * COMPLETE PFT W/WO BRONCHODILATOR(Performed 03/14/2023) Performed for Pulmonary emphysema, unspecified emphysema type (HCC), Tobacco abuse, Dyspnea on exertion, Asthma, unspecified asthma severity, unspecified whether complicated, unspecified whether persistent (HCC) * CT CHEST WO CONTRAST(Performed 01/31/2023) Performed for Pulmonary nodule * PATHOLOGY TISSUE(Performed 12/07/2022) Performed for Dark stools, Colon cancer screening * COLONOSCOPY SCREEN(Performed 12/07/2022) Performed for Dark stools, Colon cancer screening * ENDOSCOPY, COLON, SCREENING(Performed 12/07/2022) * URINALYSIS AUTO - POINT OF CARE (AMB) [facility](Performed 11/18/2022) Performed for Lower urinary tract symptoms (LUTS) * CT MSR PVR U&/BLADD CAPCTY US NON(Performed 11/18/2022) Performed for Lower urinary tract symptoms (LUTS) * CK BLOOD(Performed 08/09/2022) * URINALYSIS W/MICROSCOPIC NO CULTURE(Performed 08/09/2022) Performed for Weight loss * MAGNESIUM BLOOD(Performed 08/09/2022) Performed for Weight loss * IRON + TIBC + FERRITIN(Performed 08/09/2022) Performed for Weight loss * COMPREHENSIVE METABOLIC PANEL(Performed 08/09/2022) Performed for Weight loss * CBC W AUTO DIFFERENTIAL(Performed 08/09/2022) Performed for Weight loss * CARDIAC REHAB(Performed 05/03/2022) * CARDIAC REHAB(Performed 03/23/2022) * CT DRAIN/INJECT LARGE JOINT/BURSA(Performed 03/18/2022) Performed for Greater trochanteric bursitis of left hip * CARDIAC REHAB(Performed 03/07/2022) * CARDIAC REHAB(Performed 03/02/2022) * CT LUNG SCREEN LOW DOSE(Performed 02/17/2022) Performed for Tobacco use disorder * ECHO COMPLETE(Performed 02/07/2022) Performed for Dyspnea, unspecified type * CARDIAC REHAB(Performed 02/03/2022) * PROSTATE SPECIFIC ANTIGEN SCREEN(Performed 01/31/2022) Performed for Prostate cancer screening, Elevated PSA * XR HIP LEFT 2VW OR MORE(Performed 01/27/2022) Performed for Left hip pain * XR LUMBAR SPINE 2 OR 3VW(Performed 01/27/2022) Performed for Spondylolisthesis at L4-L5 level * URINALYSIS AUTO - POINT OF CARE (AMB) [facility](Performed 01/18/2022) Performed for Elevated PSA * D-DIMER(Performed 01/17/2022) Performed for Arthralgia of left lower leg * VAS ARTERIAL ANKLE ARM INDEX(Performed 01/17/2022) Performed for Arthralgia of left lower leg * CBC W AUTO DIFFERENTIAL(Performed 11/08/2021) * ALLERGEN INTERPRETATION(Performed 11/08/2021) * ALLERGEN RESPIRATORY PNL REGION 8 ([place])(Performed 11/08/2021) * CT LUNG SCREEN LOW DOSE(Performed 02/04/2021) Performed for Tobacco use disorder * IR NERVE BLOCK L OR S UNILAT(Performed 01/20/2021) Performed for Low back pain, unspecified back pain laterality, unspecified chronicity, unspecified whether sciatica present * BASIC METABOLIC PANEL (CALCIUM TOTAL)(Performed 01/04/2021) Performed for Congestive heart failure, unspecified HF chronicity, unspecified heart failure type (HCC) * LIPID PROFILE(Performed 01/04/2021) Performed for Congestive heart failure, unspecified HF chronicity, unspecified heart failure type (HCC) * BRONCHIAL CHALLENGE(Performed 12/21/2020) Performed for Dyspnea on exertion * FRACTIONAL EXHALED NITRIC OXIDE(Performed 12/21/2020) Performed for Dyspnea on exertion * FL JOINT INJECTION OR ASPIRATE(Performed 10/14/2020) Performed for Hip pain, chronic, left, Primary osteoarthritis of left hip, Hip dysplasia (HCC) * PSA SERIAL(Performed 09/29/2020) Performed for Benign localized prostatic hyperplasia with lower urinary tract symptoms (LUTS) * URINALYSIS AUTO - POINT OF CARE (AMB) [facility](Performed 09/29/2020) Performed for Elevated PSA * ECHO COMPLETE(Performed 07/23/2020) Performed for Coronary artery disease due to lipid rich plaque * CARDIAC PROCEDURE ORDER(Performed 06/27/2020) * CCL CARDIAC CATH LEFT(Performed 06/17/2020) Performed for Acute on chronic systolic heart failure (HCC) * PT-INR [facility](Performed 06/17/2020) Performed for Essential hypertension * BASIC METABOLIC PANEL (CALCIUM TOTAL)(Performed 06/17/2020) Performed for Essential hypertension * CBC W/O DIFFERENTIAL(Performed 06/17/2020) Performed for Essential hypertension * XR PELVIS W LEFT HIP 2VW(Performed 04/27/2020) Performed for Low back pain, unspecified back pain laterality, unspecified chronicity, unspecified whether sciatica present * XR LUMBAR SPINE 2 OR 3VW(Performed 04/27/2020) Performed for Low back pain, unspecified back pain laterality, unspecified chronicity, unspecified whether sciatica present * BASIC METABOLIC PANEL (CALCIUM TOTAL)(Performed 04/23/2020) Performed for Dyspnea on exertion * CULTURE RESPIRATORY LOWER(Performed 04/23/2020) * COMPLETE PFT W/WO BRONCHODILATOR(Performed 03/24/2020) Performed for Panlobular emphysema (HCC), Dyspnea on exertion * MRI LUMBAR SPINE WO CONTRAST(Performed 11/29/2019) Performed for Lumbar stenosis with neurogenic claudication * XR SPINE ENTIRE 2 OR 3VW(Performed 11/04/2019) Performed for Back pain, unspecified back location, unspecified back pain laterality, unspecified chronicity * ECHO COMPLETE(Performed 10/25/2019) Performed for Hx of cardiomyopathy * LAB RESULTS ORDER(Performed 09/20/2019) * HEPATITIS C AB W/RFLX TO HCV RNA QN PCR(Performed 09/19/2019) * BASIC METABOLIC PANEL (CALCIUM TOTAL)(Performed 09/19/2019) Performed for Essential hypertension * TSH(Performed 09/19/2019) Performed for Abnormal weight loss * VITAMIN B12(Performed 09/19/2019) Performed for Numbness and tingling of foot * LAB RESULTS ORDER(Performed 09/12/2019) * LAB RESULTS ORDER(Performed 07/26/2019) * URINALYSIS REFLEX TO MICROSCOPIC NO CULTURE(Performed 07/25/2019) * HEMOGLOBIN A1C(Performed 07/25/2019) * CBC W AUTO DIFFERENTIAL(Performed 07/25/2019) * LIPID PROFILE(Performed 07/25/2019) * COMPREHENSIVE METABOLIC PANEL(Performed 07/25/2019) Performed for Essential hypertension, Osteoarthritis of both hips, unspecified osteoarthritis type,Health care maintenance * CMP 14 ABAXIS (ALEC WAIVED) [facility](Performed 07/25/2019) * FL JOINT INJECTION OR ASPIRATE(Performed 06/26/2019) Performed for Bilateral primary osteoarthritis of hip * FL JOINT INJECTION OR ASPIRATE(Performed 06/26/2019) Performed for Bilateral primary osteoarthritis of hip * XR PELVIS W BILAT HIP 2VW(Performed 05/20/2019) Performed for Pain of both hip joints * XR THORACIC SPINE 2VW(Performed 02/21/2019) Performed for Back pain, unspecified back location, unspecified back pain laterality, unspecified chronicity * FL NERVE BLOCK L OR S UNILAT(Performed 11/14/2018) Performed for Osteoarthritis of spine with radiculopathy, lumbar region * XR LUMBAR SPINE 2 OR 3VW(Performed 10/03/2018) Performed for Back pain, unspecified back location, unspecified back pain laterality, unspecified chronicity * COMPLETE PFT W/WO BRONCHODILATOR(Performed 09/17/2018) Performed for COPD exacerbation (HCC), Panlobular emphysema (HCC) * SIX MINUTE WALK(Performed 09/17/2018) Performed for COPD exacerbation (HCC), Panlobular emphysema (HCC) * PFT OXYGEN DESATURATION STUDY(Performed 09/17/2018) Performed for COPD exacerbation (HCC), Panlobular emphysema (HCC) * FRACTIONAL EXHALED NITRIC OXIDE(Performed 09/17/2018) Performed for COPD exacerbation (HCC), Panlobular emphysema (HCC) * CT CHEST WO CONTRAST(Performed 09/14/2018) Performed for COPD exacerbation (HCC), Panlobular emphysema (HCC) * GLUCOSE - POINT OF CARE(Performed 11/04/2015) * VALPROIC ACID LEVEL(Performed 11/04/2015) Results * ECHO COMPLETE (01/29/2024 1:28 PM CDT) Only the most recent of2 resultswithin the time period is included. BSA 2.5185749 m2 [facility] CV FUJ I PACS LV [...] 71.29 50 - 102 g/[facility] pk dane 53.946 cm/s [facility] CV F U[facility]I PACS MV avg E/e' ratio 8.68 SS M [facility] A pk dane 94.96 cm/s [facility] CV F U[facility]I PACS MV E A ratio 0.57 [facility] E' lateral dane 9.716 cm/s SS M CV FUJI PACS MV DT 283 ms [facility] CV [facility] I PACS MV E' septal dane 4.572 cm/s [facility] E/e' septal 11.8 [facility] E/e' lateral 5.552 [facility] LA vol BP 49.935 mL [facility] CV [facility] I PACS LVOT pk dane 0.97 m/s [facility] CV F U PACS LVOT mn dane 0.72 m/s [facility] CV F UJI PACS LVOT mn grad 2.3 mmHg [facility] Cardiac Output 5.087 l/min [facility] LV[facility] Cardiac Index 2.21 l/min/m2 [facility] LA vol index 21.7 16 - 34 mL/m2 [facility] vol BP A-L 53.356 mL [facility] RVIDd 2.8 cm [facility] CV [facility] I PACS RVOT VTI 11.222 cm [facility] CV [facility] I PACS TV S' dane 12.426 cm/s [facility] CV [facility] I PACS TAPSE 1.978 1.7 cm [facility] CV [facility] I PACS RVOT pk dane 0.57 m/s [facility] CV F UJI PACS RA area 18.022 cm2 [facility] CV [facility] I PACS AV mn grad 4 mmHg [facility] CV FU JI PACS AV pk grad 7 mmHg [facility] CV FU JI PACS AV mn dane 1.01 m/s [facility] CV FUJ I PACS AV pk dane 1.30 m/s [facility] CV FUJ I PACS AV VTI 20.719 cm [facility] CV FUJ I PACS LVOT pk grad 3.753 mmHg [facility] CV FUJI PACS LVOT VTI 17.347 cm [facility] CV FUJ I PACS AV area cont VTI 2.9 cm2 [facility] CV FUJI PACS AV area pk dane 2.6 cm2 [facility] C V FUJI PACS AV Doppler dane index pk dane 0.743 [facility] CV FUJI PACS Dimensionless Index 0.837 [facility] CV FUJI PACS MR VTI 162.236 cm [facility] CV FUJ I PACS MV pk dane regurg 521.556 cm/s [facility] CV FUJI PACS MV mn grad 1 mmHg [facility] CV FU JI PACS MV pk grad 4 mmHg [facility] CV FU JI PACS MV mn dane 0.53 m/s [facility] CV FUJ I PACS MV pk dane 98.496 cm/s [facility] CV FUJ I PACS MV PHT 83 ms [facility] CV FUJ I PACS MV area PHT 2.65 cm2 [facility] CV F UJI PACS MV area cont eq 3.46 cm2 [facility] CV FUJI PACS MV VTI 17.638 cm [facility] CV FUJ I PACS MV decel slope 190.294 cm/s2 [facility] C V FUJI PACS RVOT mn grad 1 mmHg [facility] CV FUJI PACS RVOT pk grad 1 mmHg [facility] CV FUJI PACS PV mn grad 3 mmHg [facility] CV FU JI PACS PV pk dane 117.812 cm/s [facility] CV [facility] I PACS PV pk grad 5 mmHg [facility] CV FU JI PACS PV mn dane 76.873 cm/s [facility] CV [facility] I PACS Ascending aorta 3.32 cm [facility] CV FUJI PACS IVC size 1.7 cm [facility] CV FUJ I PACS LA ESV A4C MOD Index 18 ml/m2 [facility] CV FUJI PACS LA ESV A2C MOD Index 26 ml/m2 [facility] CV FUJI PACS [id number] 7.143 cm [facility] CV FUJ I PACS [id number] 7.525 cm [facility] CV FUJ I PACS Prox Asc Ao Diameter Index 1.443 cm [facility] CV FUJI PACS LVIDs index 1.78 1.3 - 2.1 cm/m2 [facility] CV FUJI PACS LV LVIDd index 2.34 2.2 - 3.0 cm/m2 [facility] CV FUJI PACS Anatomical Region Laterality Modality [...] views were obtained. Tracey CARNES [facility] * IMAGING RADIOLOGY XRAY RESULTS ORDER (08/29/2023) Anatomical Region Laterality Modality Other 08/29/2023 Narrative 08/29/2023 Ordered by an unspecified provider. Scanned Document IMAGING * VAS ARTERIAL ANKLE ARM INDEX (08/02/2023 9:38 AM CDT) Only the most recent of2 resultswithin the time period is included. Anatomical Region Laterality Modality Ankle / Foot, Upper Extremity In travascular Ultrasound 08/02/2023 8:49 AM CDT Narrative Procedure Note Pranay Blackman MD - 08/02/2023 Lis Hennessy MD VASCULAR LAB ORDERA BLES * Complete PFT w/wo Bronchodilator [facility] PFT Lab (03/14/2023 2:36 PM CDT) Impressions Ang Christie MD - 03/14/2023 2:36 PM CDT [facility] DEPARTMENT OF PULMONARY, CRITICAL CARE, AND SLEEP MEDICINE PULMONARY FUNCTION TEST Please see technologist's comments mentioned in the report. INTERPRETATION: SPIROMETRY: ?FVC: normal ?FEV1: normal ?FEV1/FVC ratio is normal. BRONCHODILATOR RESPONSE: There is no significant response to bronchodilator therapy however does not mean the patient wont benefit from bronchodilator therapy FLOW-VOLUME LOOPS: Normal flow-volume loops LUNG VOLUMES: Lung volumes by body plethysmography demonstrate normal total lung capacity but increased residual volume DLCO: Unadjusted for Hb and COHb is normal DLCO: Corrected for Hb and COHb is: not able to perform AIRWAY RESISTANCE: The airway resistance is normal and the specific conductance is normal ARTERIAL BLOOD GAS ANALYSIS: Not performed IMPRESSION: 1. Normal spirometry 2. Severe air trapping without hyperinflation 3. No significant bronchodilator response, however this does not preclude the use of bronchodilators 4. Normal uncorrected DLCO 5. Compared with previous study on 12/21/20, TLC increased by 2.01 L. Song Butler D.O. Pulmonary Disease & Critical Care Fellow [facility] Pager: [phone] I have reviewed the test data and agree with Dr. Butler's interpretations. Ang Christie MD 04/26/2023 Narrative Ang Christie MD - 03/14/2023 2:36 PM CDT Song Butler, DO ? 03/14/2023 ??2:42 PM Procedure Note Song Butler, DO - 03/14/2023 2:36 PM CDT Images from the original note were not included. Rhianna Moctezuma MD RESPIRATORY [facility] ORDERABLES * CT CHEST WO CONTRAST (01/31/2023 7:47 AM CDT) Only the most recent of2 resultswithin the time period is included. Anatomical Region Laterality Modality Chest Computed Tomogra phy 01/31/2023 8:37 AM CDT Impressions 01/31/2023 11:37 AM CDT IMPRESSION: 1. Unchanged appearance of pulmonary nodule in the right lower lobe measuring 4 mm. There is an additional neighboring 2 mm nodule that is unchanged. Recommend continued annual screening with low-dose chest CT. 2. Simple cyst in the left kidney. Simple hepatic cyst versus hemangioma in the right hemiliver. > Dictated by David Bernard MD. > Dictated by David Bernard (Residential Substance Abuse Counselor) 01/31/2023 11:34 AM IBimal MD have personally reviewed and interpreted this examination/study. > Interpreting Provider: Bimal Lozano MD on 01/31/2023 11:37 AM Narrative 01/31/2023 11:37 AM CDT PROCEDURE: ??CT CHEST WO CONTRAST, DATE/TIME OF EXAM: ??01/31/2023 7:47 AM, LOCATION ??[facility] INDICATION: R91.1: Pulmonary nodule ADDITIONAL CLINICAL INFORMATION: COMPARISON: CT 02/17/2022 TECHNIQUE: CT of the chest was performed without intravenous contrast utilizing standard protocol. FINDINGS: Central tracheobronchial tree: Clear. Lungs: Unchanged appearance of pulmonary nodule in the right lower lobe (image 43 series 4) measuring 4 mm. There is a smaller neighboring nodule measuring roughly 2 mm, unchanged. Pleura: No significant pleural effusion. No pneumothorax. Heart: Heart is not enlarged. No significant pericardial effusion. There is atherosclerosis of the aorta. Teresa/mediastinum: There are subcentimeter paratracheal and aortopulmonary nodes. Bones: There are chronic degenerative changes of the spine with dish disease. Chronic left-sided posterior rib fractures. Upper abdomen: Hyperdense structures seen in the lumen of the stomach may represent ingested material. Redemonstration of a simple renal cyst in the left kidney. There is a small 8x8mm hypoattenuating lesion in the right hemiliver (image 91 series 3) measuring roughly 10 HU, unchanged from prior study and likely represents a simple hepatic cyst versus hemangioma. Procedure Note Alyssa Lozano MD - 01/31/2023 PROCEDURE: CT CHEST WO CONTRAST, DATE/TIME OF EXAM: 01/31/2023 7:47 AM, LOCATION [facility] INDICATION: R91.1: Pulmonary nodule ADDITIONAL CLINICAL INFORMATION: COMPARISON: CT 02/17/2022 TECHNIQUE: CT of the chest was performed without intravenous contrast utilizing standard protocol. FINDINGS: Central tracheobronchial tree: Clear. Lungs: Unchanged appearance of pulmonary nodule in the right lower lobe (image 43 series 4) measuring 4 mm. There is a smaller neighboringnodule measuring roughly 2 mm, unchanged. Pleura: No significant pleural effusion. No pneumothorax. Heart: Heart is not enlarged. No significant pericardial effusion. Thereis atherosclerosis of the aorta. Teresa/mediastinum: There are subcentimeter paratracheal andaortopulmonary nodes. Bones: There are chronic degenerative changes of the spine with dish disease. Chronic left-sided posterior rib fractures. Upper abdomen: Hyperdense structures seen in the lumen of the stomachmay represent ingested material. Redemonstration of a simple renal cyst inthe left kidney. There is a small 8x8mm hypoattenuating lesion in the right hemiliver (image 91 series 3) measuring roughly 10 HU, unchanged fromprior study and likely represents a simple hepatic cyst versus hemangioma. IMPRESSION: 1. Unchanged appearance of pulmonary nodule in the right lower lobe measuring 4 mm. There is an additional neighboring 2 mm nodule that is unchanged. Recommend continued annual screening with low-dose chest CT. 2. Simple cyst in the left kidney. Simple hepatic cyst versus hemangiomain the right hemiliver. > Dictated by David Bernard MD. > Dictated by David Bernard (Residential Substance Abuse Counselor) 01/31/2023 11:34 AM Bimal Duong MD have personally reviewed and interpreted this examination/study. > Interpreting Provider: Bimal Lozano MD on 01/31/2023 11:37 AM Jeffrey Oliveira MD CT ORDERABLES * PATHOLOGY TISSUE (12/07/2022 10:29 AM HITTING COACH) Case Report Surgical Pathology Report ? Case: [id number] ? Authorizing Provider: ??Gavin Mccormick, ??Collected: ? 12/07/2022 10:29 AM ? MD ? Ordering Location: ? [facility] ENDOSCOPY ?Received: ?12/07/2022 12:46 PM ? Pathologist: ? Coral Epps MD ? Specimen: ?Polyp Ascending, ascending colon polyps ? 12/08/2022 1:54 PM HITTING COACH [facility] Final Diagnosis Large intestine, ascending colon polyps, biopsy (A): - Tubular adenoma(s), fragmented 12/08/2022 1:54 PM [facility] Microscopic Description and Comment Microscopic examination substantiates the final diagnosis. 12/08/2022 1:54 PM [facility] Clinical History The patient is a 62-year-old man who presents for high risk colon cancer surveillance (personal history of colonic polyps and family history of colon cancer in first-degree relative age <60 years). Operative procedure/findings: Colonoscopy - four 4-6 mm ascending colon polyps, resected and retrieved. 12/08/2022 1:54 PM [facility] Gross Description The requisition and specimen(s) are identified with the patient's name Josafat Calvo. Received in formalin, specimen A , are multiple pink-nolasco tissues, 0.2-0.8 cm in greatest dimension and 2.0 x 0.5 x 0.2 cm in aggregate, submitted in toto in cassette A1. DF 12/08/2022 1:54 PM [facility] Disclaimer The performance characteristics of all immunohistochemical and indirect immunofluorescence stains (if any) cited in this report were determined by the Histopathology Laboratory of [facility]. Some of these tests were developed by our own laboratory and have not been cleared or approved by the US Food and Drug Administration. The FDA does not require this test to go through premarket FDA review. These tests are used for clinical purposes. They should not be regarded as investigational or for research. This laboratory is certified under the Clinical Laboratory Improvement Amendments (CLIA) as qualified to perform high complexity clinical laboratory testing. This case has been personally reviewed and interpreted by the attending (teaching) pathologist. 12/08/2022 1:54 PM [facility] Embedded Images 12/08/2022 1:54 PM [facility] Biopsy, NOS POLYP / Unknown 12/07/2022 1 0:29 AM HITTING COACH 12/07/2022 12:46 PM HITTING COACH Comment:Pre-op diagnosis: Dark stools [R19.5] Colon cancer screening [Z12.11] Rae Mccormick MD LAB - PATHOLOGY/CYTOLOGY ORDERABLES [facility] [address] [place] [address], [facility] [phone] * ENDOSCOPY, COLON, SCREENING (12/07/2022 10:04 AM HITTING COACH) Report Endoscopy POC Endoscopy Department Report _ Patient Name: Josafat Calvo ?Procedure Date: 12/07/2022 10:04 AM ?Date of : 1960 Classification: Outpatient ?Gender: Male Ethnicity: Not or ? Race: Black or _ Providers: ?Tal Mccormick Referring : ? Ian Pollock (Referring ) Procedure: ?Colonoscopy Indications: ?High risk colon cancer [...] Procedure Code(s): ? --- Professional --- ? 79584, Colonoscopy, flexible; with removal of tumor(s), polyp(s), or ? other lesion(s) by snare technique Diagnosis Code(s): ?--- Professional --- ?Z86.010, Personal history of colonic polyps ?K63.5, Polyp of colon ?Z80.0, Family history of malignant neoplasm of ?digestive organs CPT copyright 2019 [employer]. All rights reserved. The codes documented in this report are preliminary and upon global marketing specialist review may be revised to meet current compliance requirements. Tal Mccormick, 12/07/2022 10:49:20 AM Note Initiated On: 12/07/2022 10:04 AM Number of Addenda: 0 ? [facility] ? [address] [place] [address] [facility] 12/07/2022 10:0 4 AM HITTING COACH Rae Mccormick MD GI PRO CEDURE ORDERABLES [facility] * URINALYSIS AUTO - POINT OF CARE (AMB) [facility] (11/18/2022 9:37 AM HITTING COACH) Only the most recent of3 resultswithin the time period is included. Glucose UA neg Bilirubin UA POCT neg Ketones UA POCT neg Specific [place] UA 1.015 Blood Urine POCT neg pH UA 6.0 Protein UA neg Urobilinogen UA 0.2 mg/dl Nitrite UA neg WBC UA neg Urine URINE / Unknown 11/18/2022 9 :37 AM HITTING COACH Florence Ojeda RN CARDIAC CATH-SALES ASSISTANT ENTERTAINMENT AND MEDIA LAB - POINT O F CARE ORDERABLES * CT MSR PVR U&/BLADD CAPCTY US NON (11/18/2022 9:32 AM HITTING COACH) Narrative Franklin Montez CNA - 11/18/2022 9:32 AM HITTING COACH Franklin Montez CNA ? 11/22/2022 11:12 AM Bladder Scan 103 ml Florence Alonso Rusty RN CARDIAC CATH-SALES ASSISTANT ENTERTAINMENT AND MEDIA PROCEDURE/MIN OR SURGICAL ORDERABLES * (ABNORMAL) URINALYSIS W/MICROSCOPIC NO CULTURE (08/09/2022 1:47 PM CDT) Color UA YELLOW YELLOW [facility] Appearance CLOUDY(A) CLEAR [facility] Specific [place] UA 1.006 1.001 - 1.035 [facility] pH UA 5.5 5.0 - 8.0 [facility] Glucose UA NEGATIVE NEGATIVE [facility] Bilirubin UA NEGATIVE NEGATIVE [facility] Ketone UA NEGATIVE NEGATIVE [facility] Blood UA NEGATIVE NEGATIVE [facility] Protein UA NEGATIVE NEGATIVE [facility] Nitrite UA NEGATIVE NEGATIVE [facility] Leukocyte UA NEGATIVE NEGATIVE [facility] WBC UA NONE SEEN < OR = 5 /HPF [facility] RBC UA NONE SEEN < OR = 2 /HPF [facility] Epithelial Cell UA NONE SEEN < OR = 5 /HPF [facility] Bacteria UA NONE SEEN NONE SEEN /HPF [facility] Hyaline Casts NONE SEEN NONE SEEN /LPF [facility] Comment: Test Performed at: [facility] [place], [place] ??[phone] PRUDENCIO ALDANA DO,MPH Urine URINE SPECIMEN OBTAINED BY CLEAN CATCH PROCEDURE / Unknown 08/09/2022 1:47 PM CDT 08/09/2022 1:50 PM CDT Ian Pollock MD LAB - URINALYSIS ORD ERABLES [facility] [address] [place] [address] * (ABNORMAL) IRON + TIBC + FERRITIN (08/09/2022 1:47 PM CDT) Iron 132 50 - 180 mcg/dL [facility] TIBC 272 250 - 425 mcg/dL (calc) [facility] % Saturation 49(H) 20 - 48 % (calc) [facility] Ferritin 209 24 - 380 ng/mL [facility] Comment: Test Performed at: [facility] [address] [place], [place] ??[phone] PRUDENCIO ALDANA DO,MPH Blood BLOOD SPECIMEN / Unknown 08/09/2022 1:47 PM CDT 08/09/2022 1:50 PM CDT Ian Pollock MD LAB - CHEMISTRY JANAE ELIAS Performing Organization Address [facility]/ZIP Co de Phone Number [facility] [phone] [place] [address] * (ABNORMAL) CBC WITH DIFFERENTIAL (08/09/2022 1:47 PM CDT) Only the most recent of3 resultswithin the time period is included. White Blood Cell Count 6.7 3.8 - 10.8 Thousand/u L [facility] RBC 4.77 4.20 - 5.80 Million/uL [facility] Hemoglobin 13.1(L) 13.2 - 17.1 g/dL [facility] Hematocrit 41.1 38.5 - 50.0 % [facility] MCV 86.2 80.0 - 100.0 fL [facility] MCH 27.5 27.0 - 33.0 pg [facility] MCHC 31.9(L) 32.0 - 36.0 g/dL [facility] RDW 12.5 11.0 - 15.0 % [facility] Platelet Count 191 140 - 400 Thousand/u L [facility] MPV 9.6 7.5 - 12.5 fL [facility] Neutrophil Absolute 2392 1500 - 7800 cells/uL [facility] Lymphocytes Absolute 3223 850 - 3900 cells/uL [facility] Absolute Monocytes 650 200 - 950 cells/uL [facility] Eosinophils Absolute 369 15 - 500 cells/uL [facility] Basophils Absolute 67 0 - 200 cells/uL [facility] Granulocytes % 35.7 % [facility] Lymphocytes % 48.1 % [facility] Monocytes % 9.7 % [facility] Eosinophils % 5.5 % [facility] Basophils % 1.0 % [facility] Comment: Test Performed at: [facility] [address] [place], [place] ??[phone] PRUDENCIO ALDANA DO,MPH Blood BLOOD SPECIMEN / Unknown 08/09/2022 1:47 PM CDT 08/09/2022 1:50 PM CDT Ian Pollock MD LAB - HEMATOLOGY CHARITY MAKI Performing Organization Address City/[facility]/ZIP Co de Phone Number [facility] [phone] [place] [address] * (ABNORMAL) COMPREHENSIVE METABOLIC PANEL (08/09/2022 1:47 PM CDT) Only the most recent of2 resultswithin the time period is included. Glucose 112(H) 65 - 99 mg/dL [facility] [...] 46 U/L [facility] Comment: Test Performed at: [facility] [address] [place], [place] ??[phone] PRUDENCIO ALDANA DO,MPH Blood BLOOD SPECIMEN / Unknown 08/09/2022 1:47 PM CDT 08/09/2022 1:50 PM CDT Ian Pollock MD LAB - CHEMISTRY JANAE ELIAS [facility] [address] [place] [address] * MAGNESIUM BLOOD (08/09/2022 1:47 PM CDT) Magnesium 1.9 1.5 - 2.5 mg/dL [facility] Comment: Test Performed at: [facility] [address] [place], [place] ??[phone] PRUDENCIO ALDANA DO,MPH Blood BLOOD SPECIMEN / Unknown 08/09/2022 1:47 PM CDT 08/09/2022 1:50 PM CDT Ian Pollock MD LAB - CHEMISTRY JANAE ELIAS Performing Organization Address City/[facility]/ZIP Co de Phone Number [facility] [phone] [place] [address] * CK BLOOD (08/09/2022 1:47 PM CDT) CK 135 44 - 196 U/L [facility] Comment: Test Performed at: [facility] [address] [place], [place] ??[phone] PRUDENCIO ALDANA DO,MPH 08/09/2022 1:47 PM CDT 08/09/2022 1:50 PM CDT Ian Pollock MD LAB - CHEMISTRY JANAE ELIAS Performing Organization Address [facility] Co de Phone Number [facility] [phone] [place] [address] * CARDIAC REHAB (05/03/2022) Only the most recent of5 resultswithin the time period is included. Narrative 05/03/2022 Ordered by an unspecified provider. Scanned Document SCANNING ONLY * PROCDOC LARGE JOINT INJECTION (03/18/2022 6:03 AM CDT) Narrative Claudio Perry MD - 03/18/2022 6:03 AM CDT Claudio Perry MD ? 03/18/2022 ??6:22 AM Orthopaedic Surgery Procedure Note Diagnosis: left greater trochanteric bursitis Procedure: Injection of Kenalog, Lidocaine, and bupivacaine into the left greater trochanteric bursa Indications: Josafat Calvo is a 61 year old male who has greater left trochanteric bursitis Procedure: After risks, benefits, alternatives were discussed, the patient elected to proceed forward with corticosteroid injection. The appropriate site and side was confirmed with the patient. The left greater trochanter was prepped with betadine and alcohol. Ethyl Chloride was used to anesthetize the skin. 4cc's of 1% Licodaine, 5cc of bupivacaine, and 1cc of 40mg Kenalog was injected into the greater trochanteric bursa. A sterile bandage was applied. The patient tolerated the procedure well without complications. Post-injection instructions were given to the patient. 03/18/2022 6:03 AM Claudio Perry MD PROCEDURE/MINOR SURG ICAL ORDERABLES * CT LUNG SCREEN LOW DOSE (02/17/2022 12:02 PM CDT) Only the most recent of2 resultswithin the time period is included. Anatomical Region Laterality Modality Chest Computed Tomogra phy 02/17/2022 3:13 PM CDT Impressions 02/17/2022 3:43 PM CDT Impression: 1.Pulmonary nodule in the right lower lobe seen on series 6, image 63 that measures 4 mm, unchanged from prior with a new additional neighboring 2 mm nodule. Lung-RADS: 2. Recommend continued annual screening low dose chest CT. [facility]-Lung Nodule LungRADS Categories: 1 - Negative (no nodules, or only benign calcified or fat-containing nodules) 2 - Benign Appearance or Behavior (nodules with very low likelihood of becoming a clinically active cancer due to size or lack of growth) 3 - Probably Benign (probably benign findings-short term follow up suggested; includes nodules with a low likelihood of becoming a clinically active cancer) 4A,4B,4X - Suspicious (category 3 or 4 nodules with findings for which additional diagnostic testing and/or tissue sampling is recommended) S - Other (clinically significant or potentially clinically significant findings (non-lung cancer) C - Prior Lung Cancer (modifier for patients with a prior diagnosis of lung cancer who return to screening) Report drafted by Yoel Bro (resident) I, Dr. RANDA OTERO have personally reviewed and interpreted this examination/study. This report was electronically signed by RANDA OTERO ??on 02/17/2022 3:43 PM . Narrative 02/17/2022 3:43 PM CDT Procedure Information DATE: 02/17/2022 12:03 PM EXAMINATION: Computed tomography (CT) of the chest without contrast TECHNIQUE: CT of the chest was performed without contrast according to low-dose protocol. Clinical Information HISTORY: F17.200: Tobacco use disorder COMPARISON: None. Findings Evaluation of visceral and vascular structures is degraded due to lack of intravenous contrast administration. Lines/Tubes: None. Lower neck and axillae: Normal. Mediastinum and Teresa: No enlarged lymph nodes are present. Heart and Pericardium: The cardiac chambers are normal in size. No pericardial fluid or thickening is present. Lung Parenchyma, Airways, and Pleural Spaces: There is a pulmonary nodule in the right lower lobe seen on series 6, image 63 that measures 4 mm, unchanged from prior with a new additional neighboring 2 mm nodule seen on series 6, image 63. There is no pleural effusion or pneumothorax. Bones and Soft Tissue: The visible osseous structures are intact. Degenerative changes are seen in the spine. Chronic left-sided rib fractures are redemonstrated. Upper Abdomen: Partially visualized left renal cystic lesion, unchanged. Otherwise, the visualized upper abdominal viscera appear unremarkable. Procedure Note Randa Otero MD - 02/17/2022 Procedure Information DATE: 02/17/2022 12:03 PM EXAMINATION: Computed tomography (CT) of the chest without contrast TECHNIQUE: CT of the chest was performed without contrast according to low-dose protocol. Clinical Information HISTORY: F17.200: Tobacco use disorder COMPARISON: None. Findings Evaluation of visceral and vascular structures is degraded due to lackof intravenous contrast administration. Lines/Tubes: None. Lower neck and axillae: Normal. Mediastinum and Teresa: No enlarged lymph nodes are present. Heart and Pericardium: The cardiac chambers are normal in size. No pericardial fluid or thickening is present. Lung Parenchyma, Airways, and Pleural Spaces: There is a pulmonary nodule in the right lower lobe seen on series 6, image 63 that measures 4 mm, unchanged from prior with a new additional neighboring 2 mm nodule seen on series 6, image 63. There is no pleural effusion or pneumothorax. Bones and Soft Tissue: The visible osseous structures are intact. Degenerative changes are seen in the spine. Chronic left-sided rib fractures are redemonstrated. Upper Abdomen: Partially visualized left renal cystic lesion, unchanged. Otherwise, the visualized upper abdominal viscera appear unremarkable. Impression: 1.Pulmonary nodule in the right lower lobe seen on series 6, image 63that measures 4 mm, unchanged from prior with a new additional neighboring 2mm nodule. Lung-RADS: 2. Recommend continued annual screening low dosechest CT. [facility]-Lung Nodule LungRADS Categories: 1 - Negative (no nodules, or only benign calcified or fat-containing nodules) 2 - Benign Appearance or Behavior (nodules with very low likelihood of becoming a clinically active cancer due to size or lack of growth) 3 - Probably Benign (probably benign findings-short term follow up suggested; includes nodules with a low likelihood of becoming aclinically active cancer) 4A,4B,4X - Suspicious (category 3 or 4 nodules with findings for which additional diagnostic testing and/or tissue sampling is recommended) S - Other (clinically significant or potentially clinically significant findings (non-lung cancer) C - Prior Lung Cancer (modifier for patients with a prior diagnosis of lung cancer who return to screening) Report drafted by Yoel Bro (resident) I, Dr. RANDA OTERO have personally reviewed and interpreted this examination/study. This report was electronically signed by RANDA OTERO on 02/17/2022 3:43PM . Jeffrey Oliveira MD CT ORDERABLES * ECHO COMPLETE (02/07/2022 8:55 AM CDT) Only the most recent of3 resultswithin the time period is included. Anatomical Region Laterality Modality Chest Echo 02/07/2022 8:13 AM CDT Narrative 02/07/2022 12:42 PM CDT Procedure Note Joaquin Hart MD - 05/16/2023 Bridget Lomas MD ECHOCARDIOGRAPHY RA DIANT * PROSTATE SPECIFIC ANTIGEN SCREEN (01/31/2022 10:17 AM CDT) PSA 0.40 < OR = 4.00 ng/mL [facility] Comment: The total PSA value from this assay system is standardized against the WHO standard. The test result will be approximately 20% lower when compared to the equimolar-standardized total PSA (Alison Melanie). Comparison of serial PSA results should be interpreted with this fact in mind. This test was performed using the Siemens chemiluminescent method. Values obtained from different assay methods cannot be used interchangeably. PSA levels, regardless of value, should not be interpreted as absolute evidence of the presence or absence of disease. Test Performed at: [facility] [address] [place], [place] ??[phone] PRUDENCIO ALDANA DO,MPH Blood BLOOD SPECIMEN / Unknown 01/31/2022 10:17 AM CDT 01/31/2022 10:18 AM CDT Florence Ojeda RN CARDIAC CATH-SALES ASSISTANT ENTERTAINMENT AND MEDIA LAB - ATHLETIC FIELD CUSTODIAN RY ORDERABLES Performing Organization Address City/State/[facility] Co de Phone Number [facility] [phone] [place] [address] * XR HIP LEFT 2VW OR MORE (01/27/2022 9:52 AM CDT) Anatomical Region Laterality Modality Pelvis, Lower Extremity Radiogra phic Imaging 01/27/2022 10:2 1 AM CDT Impressions 01/27/2022 10:22 AM CDT IMPRESSION: Mild degenerative change. This report was electronically signed by BOOKER DEE MD ??on 01/27/2022 10:22 AM . Narrative 01/27/2022 10:22 AM CDT Exam: ??XR HIP LEFT 2VW OR MORE History: ??M25.552: Left hip pain Comparison: 04/27/2020 Findings: No fracture or dislocation. The joint space is maintained. mild degenerative change with subchondral sclerosis and a subchondral cyst in the acetabular roof. Procedure Note Booker Dee MD - 01/27/2022 Exam: XR HIP LEFT 2VW OR MORE History: M25.552: Left hip pain Comparison: 04/27/2020 Findings: No fracture or dislocation. The joint space is maintained. mild degenerative change with subchondral sclerosis and a subchondral cyst in the acetabular roof. IMPRESSION: Mild degenerative change. This report was electronically signed by BOOKER DEE MD on01/27/2022 10:22 AM . Ga Malik MD DIAGNOSTIC IMAGING O RDERABLES * XR LUMBAR SPINE 2 OR 3VW (01/27/2022 9:13 AM CDT) Only the most recent of3 resultswithin the time period is included. Anatomical Region Laterality Modality Spine Radiographic Joann ging 01/27/2022 10:0 3 AM CDT Impressions 01/27/2022 10:04 AM CDT IMPRESSION: Degenerative changes, severe at L5-S1. This report was electronically signed by BOOKER DEE MD ??on 01/27/2022 10:04 AM . Narrative 01/27/2022 10:04 AM CDT Exam: ??XR LUMBAR SPINE 2 OR 3VW History: ??M43.16: Spondylolisthesis at L4-L5 level Comparison: None. Findings: Grade 1 anterolisthesis at L3-4 and L4-5. No fracture. Severe disc space narrowing at L5-S1 with endplate sclerosis and irregularity, progressed. Mild narrowing at L4-5. Mid to lower lumbar facet arthropathy. Procedure Note Booker Dee MD - 01/27/2022 Exam: XR LUMBAR SPINE 2 OR 3VW History: M43.16: Spondylolisthesis at L4-L5 level Comparison: None. Findings: Grade 1 anterolisthesis at L3-4 and L4-5. No fracture. Severe disc space narrowing at L5-S1 with endplate sclerosis and irregularity, progressed. Mild narrowing at L4-5. Mid to lower lumbar facet arthropathy. IMPRESSION: Degenerative changes, severe at L5-S1. This report was electronically signed by BOOKER DEE MD on01/27/2022 10:04 AM . Ga Malik MD DIAGNOSTIC IMAGING O RDERABLES * D-DIMER (01/17/2022 3:53 PM CDT) D-Dimer Quantitative 0.48 <=0.50 mcg/mL FEU 01/17/2022 5:14 PM CDT [facility] Comment: In the absence of clinical symptoms, a value less than or equal to 0.5 mcg/mL FEU significantly decreases the probability of PE/DVT (negative predictive value >95%). 1 mcg/mL FEU = 1 Fibrinogen Equivalent Unit (approximates 0.5 mcg/ml of D- Dimer). ?ISTH DIAGNOSTIC SCORING SYSTEM FOR DIC ?Score ?0 ? 1 ? 2 ?3 ?? Platelet Count(x10^3/uL) ?> 100 ?? < 100 ?? < 50 ?N/A PT Prolongation above ? upper limit of normal ?0-3 ? 3-6 ? > 6 ?N/A range (seconds) ? Fibrinogen (mg/dL) ?> 100 ?? < 100 ?N/A ?N/A D-Dimer (mcg/mL FEU) ? < 0.50 ?N/A ? 0.50-5.0 ??> 5 Calculate Cumulative Score: > or = 5 :compatible with overt DIC ? < 5 :suggestive for non-overt DIC N/A = Non applicable Reference: Br. J. Haematol. 145:24-33,2009. Blood BLOOD SPECIMEN / Unknown Lab Venipuncture / Unknown 01/17/2022 3:53 PM CDT 01/17/2022 4:55 PM CDT Bridget Lomas MD LAB - COAGULATION O RDERABLES Performing Organization Address [facility]/State/[facility] Co de Phone Number [address] [phone], [facility] [phone] * ALLERGEN INTERPRETATION (11/08/2021 10:21 AM HITTING COACH) Interpretation See Below [facility] Comment: Specific ?Level of Allergen IGE Class ?kU/L ? Specific IGE Antibody ----- ? --------- ?0 ?<0.10 ? Absent/Undetectable ??0/1 ?0.10-0.34 ? Very Low Level ??1 ?0.35-0.69 ? Low Level ??2 ?0.70-3.49 ? Moderate Level ??3 ?3.50-17.4 ? High Level ??4 ?17.5-49.9 ? Very High Level ??5 ?50-100 ?Very High Level ??6 ?>100 ?Very High Level The clinical relevance of allergen results of 0.10-0.34 kU/L are undetermined and intended for specialist use. Allergens denoted with a include results using one or more analyte specific reagents. In those cases, the test was developed and its analytical performance characteristics have been determined by [employer]. It has not been cleared or approved by the U.S. Food and Drug Administration. This assay has been validated pursuant to the CLIA regulations and is used for clinical purposes. Test Performed at: [facility] [address] ??[phone] PRUDENCIO ALDANA DO,MPH 11/08/2021 10:2 1 AM HITTING COACH 11/08/2021 10:22 AM HITTING COACH Tariq Recio MD LAB - SEROLOGY ORDER DANAY [facility] [address] [place] [address] * (ABNORMAL) ALLERGEN RESPIRATORY PROF (IL,MO,IA) IGE (11/08/2021 10:21 AM HITTING COACH) Allergen Dermatophagoides pteronyssinus <0.10 kU/L [facility] Class 0 [facility] Allergen Dermatophagoides farinae <0.10 kU/L [facility] Class 0 [facility] Allergen P. notatum <0.10 kU/L [facility] Class 0 [facility] Allergen C Herbarum <0.10 kU/L [facility] Class 0 [facility] Allergen Aspergillus fumigatus <0.10 kU/L [facility] Class 0 [facility] Allergen Alternaria alternata <0.10 kU/L [facility] Class 0 [facility] Allergen Cat Dander 2.32(H) kU/L [facility] Class 2 [facility] Allergen Dog Dander <0.10 kU/L [facility] Class 0 [facility] Allergen Cockroach Mexican <0.10 kU/L [facility] Class 0 [facility] Allergen Maple <0.10 kU/L [facility] Class 0 [facility] Allergen [place] <0.10 kU/L [facility] Class 0 [facility] Allergen Grape[place] Tree <0.10 kU/L [facility] Class 0 [facility] Allergen [place] <0.10 kU/L [facility] Class 0 [facility] Allergen Dillon Tree <0.10 kU/L [facility] Class 0 [facility] Allergen White Clay <0.10 kU/L [facility] Class 0 [facility] Allergen [place] <0.10 kU/L [facility] Class 0 [facility] Allergen Elm <0.10 kU/L [facility] Class 0 [facility] Allergen [place]/Pecan Tree <0.10 kU/L [facility] Class 0 [facility] Allergen White Lemmon <0.10 kU/L [facility] Class 0 [facility] Allergen Bermuda Grass <0.10 kU/L [facility] Class 0 [facility] Allergen Hermes Grass <0.10 kU/L [facility] Class 0 [facility] Allergen Common Ragweed <0.10 kU/L [facility] Class 0 [facility] Allergen Rough Pigweed <0.10 kU/L [facility] Class 0 [facility] Allergen Croatian Thistle <0.10 kU/L [facility] Class 0 [facility] Allergen Rough Curiel Elder <0.10 kU/L [facility] Class 0 [facility] Allergen Mouse Urine Protein <0.10 kU/L [facility] Class 0 [facility] IgE 140(H) <[place]=823 kU/L [facility] Comment: Test Performed at: [facility] [address] [place] [address] ??[phone] PRUDENCIO ALDANA DO,MPH 11/08/2021 10:2 1 AM HITTING COACH 11/08/2021 10:22 AM HITTING COACH Tariq Recio MD LAB - CHEMISTRY JANAE ELIAS [facility] [address] [place] [address] * IR NERVE BLOCK L OR S UNILAT (01/20/2021 3:11 PM CDT) Anatomical Region Laterality Modality Spine X-Ray Angiograph y 01/20/2021 1:32 PM CDT Impressions 01/20/2021 3:11 PM CDT Impression: L4-5 translaminar (central) epidural steroid injection under fluoroscopic guidance. I, Dr. Ferris, was present and performed the entire procedure. This report was electronically signed by LEATHA FERRIS M.D. ??on 01/20/2021 3:11 PM . Narrative 01/20/2021 3:11 PM CDT History: Low back pain and radiculopathy Operators: 1.Dr. Ferris, Attending Physician Anesthesia: Local with 5 mL of 1% lidocaine. Procedure: Fluoroscopy-guided L4-5 translaminar (central) epidural steroid injection. Fluoroscopic time: 4.6 minutes ?Contrast: 1 mL of Isovue-M 200 Procedure details: The procedure, risks, and possible complications were explained to the patient in detail, and informed consent was obtained. The patient was placed prone on the procedure table. The lower back was prepped and draped in the usual sterile manner. Pre-procedure time out was performed. Fluoroscopy was done in the region of interest, and the needle entry site was marked on the lower back. After injection of 1% lidocaine for local anesthesia, a 21-gauge 15 cm Chiba needle was advanced into the epidural space at the level of L4-5. Contrast was injected and epidurography was performed, which confirmed the tip of the needle in the epidural space. Subsequently, a mixture of 2 mL betamethasone (6 mg/mL) and 2 mL 0.5% bupivacaine was injected. The needle was removed, and sterile dressing was applied. The patient tolerated the procedure well and was transferred to the holding area in stable condition. There were no immediate complications associated with the procedure. The patient's pain level before the procedure was 2/10. The patient's pain level after the procedure was 0/10. Procedure Note Leatha Ferris MD - 01/20/2021 History: Low back pain and radiculopathy Operators: 1.Dr. Ferris, Attending Physician Anesthesia: Local with 5 mL of 1% lidocaine. Procedure: Fluoroscopy-guided L4-5 translaminar (central) epiduralsteroid injection. Fluoroscopic time: 4.6 minutes Contrast: 1 mL of Isovue-M 200 Procedure details: The procedure, risks, and possible complications were explained to the patient in detail, and informed consent was obtained. The patient was placed prone on the procedure table. The lower back was prepped anddraped in the usual sterile manner. Pre-procedure time out was performed. Fluoroscopy was done in the region of interest, and the needle entrysite was marked on the lower back. After injection of 1% lidocaine for local anesthesia, a 21-gauge 15 cm Chiba needle was advanced into the epidural space at the level of L4-5. Contrast was injected and epidurography was performed, which confirmed the tip of the needle in the epidural space. Subsequently, a mixture of 2 mL betamethasone (6 mg/mL) and 2 mL 0.5% bupivacaine was injected. The needle was removed, and sterile dressingwas applied. The patient tolerated the procedure well and was transferred to the holding area in stable condition. There were no immediate complications associated with the procedure. The patient's pain level before the procedure was 2/10. The patient'susie level after the procedure was 0/10. Impression: L4-5 translaminar (central) epidural steroid injection under fluoroscopic guidance. I, Dr. Ferris, was present and performed the entire procedure. This report was electronically signed by LEATHA FERRIS M.D. on 01/20/2021 3:11 PM . April Mora MD IR ORDERABLES * BASIC METABOLIC PANEL (CALCIUM TOTAL) (01/04/2021 1:18 PM HITTING COACH) Only the most recent of4 resultswithin the time period is included. Glucose 94 65 - 99 mg/dL [facility] Comment: ? Fasting reference interval BUN 9 7 - 25 mg/dL [facility] Creatinine 0.87 0.70 - 1.33 mg/dL [facility] Comment: For patients >49 years of age, the reference limit for Creatinine is approximately 13% higher for people identified as -Mexican. eGFR by MDRD 94 > OR = 60 mL/min/1 .73m2 [facility] eGFR by MDRD 109 > OR = 60 mL/min/1 .73m2 [facility] BUN/Creatinine Ratio NOT APPLICABLE 6 - 22 (calc) [facility] Sodium 136 135 - 146 mmol/L [facility] Potassium 4.2 3.5 - 5.3 mmol/L [facility] Chloride 102 98 - 110 mmol/L [facility] CO2 24 20 - 32 mmol/L [facility] Calcium 9.5 8.6 - 10.3 mg/dL [facility] Comment: Test Performed at: [facility] [address] [place], [place] ??[id number] PRUDENCIO ALDANA DO,MPH Blood BLOOD SPECIMEN / Unknown 01/04/2021 1:18 PM HITTING COACH 01/04/2021 1:18 PM HITTING COACH John Nelson MD LAB - CHEMISTRY ORD ERABLES [facility] [address] [place] [address] * LIPID PROFILE (01/04/2021 1:18 PM HITTING COACH) Only the most recent of2 resultswithin the time period is included. Cholesterol 117 <200 mg/dL [facility] HDL Cholesterol 56 > OR = 40 mg/dL [facility] Triglycerides 73 <150 mg/dL [facility] LDL Calculated 46 mg/dL (calc) [facility] Comment: Reference range: <100 Desirable range <100 mg/dL for primary prevention; ?? <70 mg/dL for patients with CHD or diabetic patients with > or = 2 CHD risk factors. LDL-C is now calculated using the Sean calculation, which is a validated novel method providing better accuracy than the Friedewald equation in the estimation of LDL-C. Luciano EPSTEIN et al. LACEY. 2013;310(19): 0640-1283 (http://education.iAgree.TapShield/faq/HFV985) CHOL/HDLC RATIO 2.1 <5.0 (calc) [facility] Non HDL Cholesterol 61 <130 mg/dL (calc) [facility] Comment: For patients with diabetes plus 1 major ASCVD risk factor, treating to a non-HDL-C goal of <100 mg/dL (LDL-C of <70 mg/dL) is considered a therapeutic option. Test Performed at: [facility] [address] [place], [place] ??[id number] PRUDENCIO ALDANA DO,MPH Blood BLOOD SPECIMEN / Unknown 01/04/2021 1:18 PM HITTING COACH 01/04/2021 1:18 PM HITTING COACH John Nelson MD LAB - CHEMISTRY ORD ERABLES [facility] [address] [place] [address] * BRONCHIAL CHALLENGE WITH METHACHOLINE (12/21/2020 12:10 PM HITTING COACH) Impressions Paul Galeano MD - 12/21/2020 12:10 PM HITTING COACH [facility] DEPARTMENT OF PULMONARY, CRITICAL CARE, AND SLEEP MEDICINE METHACHOLINE CHALLENGE TEST Josafat Calvo 12/21/2020 Hossein Mendez DO INTERPRETATION Methacholine challenge test was performed with incremental doses of methacholine per protocol. There was a significant decrease noted in the FEV1 and there was a significant decrease in specific conductance. The PD 20 is 41 ug and PD35 is 7.5 ug. IMPRESSION 1. Mild airway hyper-responsiveness. 2. No prior test is available for comparison. Hossein Mendez DO, PGY4 Pulmonary & Critical Care Fellow Division of Pulmonary, Critical Care and Sleep Medicine [facility] I have personally reviewed the fellows interpretation of the test and made any necessary corrections. Paul Galeano MD [employer] pack[employer] Division of Pulmonary, Critical Care, & Sleep Medicine Narrative Paul Galeano MD - 12/21/2020 12:10 PM HITTING COACH Hossein Mendez DO ? 12/21/2020 ??1:36 PM Tariq Recio MD PFT ORDERABLES * FRACTIONAL EXHALED NITRIC OXIDE (12/21/2020 12:10 PM HITTING COACH) Paul Moran MD - 12/21/2020 12:10 PM HITTING COACH [facility] DEPARTMENT OF PULMONARY, CRITICAL CARE, AND SLEEP MEDICINE EXHALED NITRIC OXIDE (FeNO) Josafat Branch Umesh 12/21/2020 INTERPRETATION The measurement of fractional exhaled nitric oxide (FENO) was 35 ppb. IMPRESSION: 1. High normal fractional exhaled nitric oxide (35 ppb). 2. Compared to prior study on 09/14/2018, the FeNO has increased by 30 ppb. Hossein Mendez DO, PGY4 Pulmonary & Critical Care Fellow Division of Pulmonary, Critical Care and Sleep Medicine [facility] I have personally reviewed the fellows interpretation of the test and made any necessary corrections. Paul Galeano MD [employer] pack[employer] Division of Pulmonary, Critical Care, & Sleep Medicine Narrative Paul Galeano MD - 12/21/2020 12:10 PM HITTING COACH Hossein Mendez DO ? 12/21/2020 ??1:37 PM Tariq Recio MD RESPIRATORY THERAPY ORDERABLES * FL JOINT INJECTION OR ASPIRATE (10/14/2020 10:36 AM HITTING COACH) Only the most recent of3 resultswithin the time period is included. Anatomical Region Laterality Modality Upper Extremity, Lower Extremity, Pelvis, Chest Radiographic Imaging 10/14/2020 12:1 7 PM HITTING COACH Impressions 10/14/2020 12:20 PM HITTING COACH IMPRESSION: Successful fluoroscopic guided therapeutic left hip joint injection. This report was electronically signed by BOOKER DEE MD ??on 10/14/2020 12:20 PM . Narrative 10/14/2020 12:20 PM HITTING COACH FLUOROSCOPIC GUIDED THERAPEUTIC INJECTION left HIP HISTORY: ??Left hip pain. Fluoro Time: 19 seconds FINDINGS/TECHNIQUE: The risks and benefits of the therapeutic injection were discussed with the patient including, but not limited to, infection, bleeding, allergic reaction, avascular necrosis, and irritation or damage to the joint and surrounding structures such as vessels and nerves. ??After alternatives were discussed and the opportunity to ask questions was provided, the patient acknowledged understanding, gave verbal and written consent, and wished to proceed. The patient was placed on the table in the supine position. ??A timeout was performed including confirmation of the correct patient, procedure, and laterality. ??Preliminary fluoroscopic evaluation of the hip revealed mild degenerative changes at the hip joint. The overlying skin was prepped and draped in the usual sterile fashion. Local anesthesia was obtained with 3 cc of 1% lidocaine. The hip joint was accessed using a 3.5 inch 22 gauge spinal needle from an anterior approach, under fluoroscopic guidance. ??Intraarticular position was confirmed by injecting 2 ??mL of Isovue 300 iodinated contrast under fluoroscopy. Once verified, 2 mL of Kenalog 40 (80 mg total) and 3 mL of 1 % lidocaine were injected into the joint. Procedure Note Booker Dee MD - 10/14/2020 FLUOROSCOPIC GUIDED THERAPEUTIC INJECTION left HIP HISTORY: Left hip pain. Fluoro Time: 19 seconds FINDINGS/TECHNIQUE: The risks and benefits of the therapeutic injection were discussed with the patient including, but not limited to, infection, bleeding, allergic reaction, avascular necrosis, and irritation or damage to the joint and surrounding structures such as vessels and nerves. After alternatives were discussed and the opportunity to ask questions was provided, the patient acknowledged understanding, gave verbal and written consent, and wished to proceed. The patient was placed on the table in the supine position. A timeoutwas performed including confirmation of the correct patient, procedure, and laterality. Preliminary fluoroscopic evaluation of the hip revealedmild degenerative changes at the hip joint. The overlying skin was preppedand draped in the usual sterile fashion. Local anesthesia was obtained with3 cc of 1% lidocaine. The hip joint was accessed using a 3.5 inch 22 gauge spinal needle froman anterior approach, under fluoroscopic guidance. Intraarticular position was confirmed by injecting 2 mL of Isovue 300 iodinated contrast under fluoroscopy. Once verified, 2 mL of Kenalog 40 (80 mg total) and 3 mL of1 % lidocaine were injected into the joint. IMPRESSION: Successful fluoroscopic guided therapeutic left hip joint injection. This report was electronically signed by BOOKER DEE MD on 10/14/2020 12:20 PM . Magdalena CARNES FLUOROSCOPY ORDERABL ES * PSA SERIAL (09/29/2020 10:23 AM HITTING COACH) PSA Total 2.2 0.0 - 4.0 ng/mL 09/29/2020 11:46 AM HITTING COACH [facility] Blood BLOOD SPECIMEN / Unknown Lab Venipuncture / Unknown 09/29/2020 10:23 AM HITTING COACH 09/29/2020 11:01 AM HITTING COACH Florence Ojeda RN CARDIAC CATH-SALES ASSISTANT ENTERTAINMENT AND MEDIA LAB - ATHLETIC FIELD CUSTODIAN RY ORDERABLES [id number] [place] [address], [facility] [phone] * CARDIAC PROCEDURE ORDER (06/27/2020 4:51 AM CDT) Narrative 06/27/2020 4:51 AM CDT Ordered by an unspecified provider. Scanned Document CARDIAC SERVICES ORD ERABLES * CCL CARDIAC CATH LEFT (06/17/2020 10:06 AM CDT) Anatomical Region Laterality Modality Chest X-Ray Angiograph y Narrative 07/03/2020 11:26 AM CDT [facility] Cardiac Catheterization Procedure Note Patient: Josafat Calvo Age: [age] year old Date of : 1960 Date of Admission: 06/17/2020 Procedure Date: 06/17/20 FELLOW / DROSS SKIMMER: Elpidio Quigley MD ATTENDING PHYSICIAN: Mikey Donovan MD PREVIOUS STRESS STUDIES WITHIN 6 MONTHS: ??None DIAGNOSTIC APPROPRIATENESS CRITERIA: Suspected CAD (No Prior PCI, No Prior CABG, and No Prior Angiogram Showing >= 50% Angiographic Stenosis) No Prior Noninvasive Testing Symptomatic Intermediate Pretest Probability U (6) Indication: 9; Score 6 HISTORY: Patient is a 59 year old male with past medical history of tobacco use disorder, hypertension, COPD, 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 ?? Patient was recently seen in the Cardiology clinic outpatient with a chief complain of dyspnea on exertion, with HF NYHA class III, and recent echocardiogram showing combined heart symptoms with exertional atypical chest pain. Going for left heart cath. ACCESS SITE(S): ?? right radial artery PROCEDURAL OVERVIEW: After obtaining informed consent and positioning the patient on the catheterization table, a timeout was performed to confirm the patient? s name, date of , and procedure. ??Sedation was initiated and the patient was prepped and draped using standard sterile technique. ?? Lidocaine was used for local anesthesia over the access site, after which the vessel was accessed and a sheath was placed using the modified Seldinger technique. ??Access was uncomplicated. At the conclusion of the procedure, hemostasis was achieved using a radial compression device after removal of all catheters, wires, and sheaths. ?? COMPLICATIONS: None SEDATION: Moderate sedation on this adult patient was ordered by Dr. Donovan, administered intravenously in their presence, and monitored by the procedure nurse as an independent trained observer who was present throughout the procedure. The following parameters were monitored: oxygen saturation, heart rate, blood pressure, and response to care. Intra-service sedation start time was 9:47 AM and end time was 9:59 AM during which the attending was present. Total physician intra-service sedation time was 12 minutes. For details on pre-moderate sedation and post-moderate sedation patient evaluation, please review the evaluation forms in [facility]. For details on monitored clinical parameters during the intra-service sedation time, please review the procedure nurse documentation in [facility] and [facility]. Total sedation administered as follows: ?? 50 mcg IV fentanyl, 0.5 mg IV midazolam. 3 ml of 1% lidocaine was administered subcutaneously at the access site. TOTAL CONTRAST USED (Isovue 370): 35 ml RADIATION: ?? AK: 409.15 mGy ?? DAP: 27406 mGycm2 HEMODYNAMIC FINDINGS: ?? - LVEDP 15 mmHg ANGIOGRAPHY: ?i. ?Left main: Large caliber vessel that trifurcates into LAD, LCx and ramus. No angiographically significant disease noted. ??ii. ?? LAD: Medium caliber vessel with diffuse mild luminal irregularities noted. Gives off 2 diagonal branches. ?iii. ??Ramus: Medium caliber vessel with mild luminal irregularities noted. ??iv. ?? LCx: Non dominant medium caliber vessel with minimal luminal irregularities diffusely. Gives off 2 obtuse marginal branches before continuing as a smaller caliber vessel in the left AV groove. Moderate ostial 30% stenosis noted. ??v. ?? RCA: Dominant medium caliber vessel with diffuse mild luminal irregularities noted. Gives off rPDA distally. ?? DOMINANCE: Right DIAGNOSTIC INTERPRETATIONS: - Non obstructive coronary arteries. - Diffuse mild luminal disease. RECOMMENDATIONS AFTER DIAGNOSTIC CATHETERIZATION: ?? Medical management of nonobstructive CAD. Aggressive modification of atherosclerotic risk factors. Continue titration of medications for cardiomyopathy. Elpidio Heller MD 06/17/2020 I was present for the entirety of the described procedure. Mikey Donovan MD Torres Blankenship MD CARDIAC MACHINE FORMER RAD IANT * PT-INR [facility] (06/17/2020 9:01 AM CDT) PT 13.6 12.1 - 14.8 Seconds 06/17/2020 9:41 AM CDT [facility] INR 1.1 See Comment 06/17/2020 9:41 AM [facility] Comment:The suggested therap eutic range for standard coumadin (warfarin) therapy is an INR of 2.0-3.0. For high-risk patients (Mechanical Mitral Valve Prosthesis, etc.), the suggested prophylactic therapeutic range is an INR of 2.5-3.5. Blood BLOOD SPECIMEN / Unknown Venipuncture / Unknown 06/17/2020 9:01 AM CDT 06/17/2020 9:10 AM CDT Torres Blankenship MD LAB - COAGULATION OR DERABLES [address] [address] [phone] * (ABNORMAL) CBC W/O DIFFERENTIAL (06/17/2020 9:01 AM CDT) WBC 6.5 3.5 - 10.5 10? 3 /uL 06/17/2020 9:13 AM CDT [facility] RBC 4.82 4.30 - 5.70 10? 6 /uL 06/17/2020 9:13 AM T [facility] Hemoglobin 13.3(L) 13.5 - 17.5 g/dL 06/17/2020 9:13 AM T [facility] Hematocrit 40.9 39.0 - 50.0 % 06/17/2020 9:13 AM T [facility] MCV 84.9 81.0 - 97.0 fL 06/17/2020 9:13 AM CDT [facility] MCH 27.6(L) 28.0 - 34.0 pg 06/17/2020 9:13 AM CDT [facility] MCHC 32.5 32.0 - 36.0 g/dL 06/17/2020 9:13 AM CDT [facility] Platelet Count 227 150 - 400 10? 3 /uL 06/17/2020 9:13 AM CDT [facility] RDW-SD 42.4 36.0 - 50.0 fL 06/17/2020 9:13 AM CDT [facility] RDW-CV 13.7 11.2 - 14.8 % 06/17/2020 9:13 AM CDT [facility] MPV 9.9 9.3 - 12.8 fL 06/17/2020 9:13 AM CDT [facility] nRBC Absolute 0.00 0 10? 3 /uL 06/17/2020 9:13 AM T [facility] nRBC Auto 0.0 0 /100 WBC 06/17/2020 9:13 AM T [facility] Blood BLOOD SPECIMEN / Unknown Venipuncture / Unknown 06/17/2020 9:01 AM CDT 06/17/2020 9:10 AM CDT Torres Blankenship MD LAB - HEMATOLOGY ORD ERABLES Performing Organization Address [facility]/State/[facility] Co de Phone Number [address] [address] [phone] * XR PELVIS W LEFT HIP 2VW (04/27/2020 9:53 AM CDT) Anatomical Region Laterality Modality Pelvis Radiographic Joann ging 04/27/2020 12:1 3 PM CDT Impressions 04/27/2020 1:27 PM CDT IMPRESSION: Mild degenerative changes in the both hip joints. Report dictated by Fabrizio Aparicio M.D. (residential sales). I, Dr. BOOKER DEE MD have personally reviewed and interpreted this examination/study. This report was electronically signed by BOOKER DEE MD ??on 04/27/2020 1:27 PM . Narrative 04/27/2020 1:27 PM CDT EXAMINATION: XR PELVIS W LEFT HIP 2VW HISTORY: Hip pain COMPARISON: Pelvis and bilateral hip radiographs 05/20/2019 FINDINGS: The osseous structures are intact without acute fracture or dislocation. The left hip joint is well aligned. There is subchondral sclerosis and subchondral cysts in the left hip joint. Subchondral sclerosis is also noted in the right hip joint. Gas is noted in the left hip joint. Vascular calcifications are present. Degenerative changes are noted in the lower lumbar spine. Procedure Note Booker Dee MD - 04/27/2020 EXAMINATION: XR PELVIS W LEFT HIP 2VW HISTORY: Hip pain COMPARISON: Pelvis and bilateral hip radiographs 05/20/2019 FINDINGS: The osseous structures are intact without acute fracture or dislocation. The left hip joint is well aligned. There is subchondral sclerosis and subchondral cysts in the left hip joint. Subchondral sclerosis is also noted in the right hip joint. Gas is noted in the left hip joint. Vascular calcifications are present. Degenerative changes are noted inthe lower lumbar spine. IMPRESSION: Mild degenerative changes in the both hip joints. Report dictated by Fabrizio Aparicio M.D. (residential sales). I, Dr. BOOKER DEE MD have personally reviewed and interpreted this examination/study. This report was electronically signed by BOOKER DEE MD on04/27/2020 1:27 PM . Silvio Bain MD DIAGNOSTIC IMAGI NG ORDERABLES * (ABNORMAL) CULTURE RESPIRATORY LOWER (04/23/2020 12:18 PM CDT) Culture (A) [facility] Comment: ??CULTURE, SPUTUM/LOWER RESPIRATORY ?Micro Number: ?[id number] ??Test Status: ? Final ??Specimen Source: ?? SPUTUM ??Specimen Quality: ??Adequate ??Gram Stain: ?Many White blood cells seen ? No epithelial cells seen ? Many Mixed bacterial marlon ? Yeast present ? Gram stain indicates that the specimen is ? ambulatory services representative of the lower respiratory tract. ??Result: ?Heavy growth of Yeast Isolated. ? Please contact the laboratory within 3 days if ? further identification is desired. ??COMMENT: ? Normal oropharyngeal marlon also present. Test Performed at: [facility] ??[phone] JOSEE THAKUR MD 04/23/2020 12:1 8 PM CDT 04/23/2020 12:19 PM CDT Agnieszka Haas MD LAB - MICROBIOLOGY O RDERABLES [address] [address] * COMPLETE PFT W/WO BRONCHODILATOR (03/24/2020) Impressions Tevin Gaspar MD - 03/24/2020 [facility] DEPARTMENT OF PULMONARY, CRITICAL CARE, AND SLEEP MEDICINE PULMONARY FUNCTION TESTS Josafat Branch Umesh 04/08/2020 INTERPRETATION Please see technologist's comments mentioned above. SPIROMETRY: Forced vital capacity is normal. ??FEV1 is normal. ??FEV1/FVC ratio is normal. There is no significant response to bronchodilator therapy. This does not preclude the use of bronchodilator response if clinically indicated. The inspection of the patient's flow-volume loops shows normal configuration of the inspiratory and expiratory limbs. LUNG VOLUMES: Lung volumes by body plethysmography are within normal limits except for severe air trapping DLCO: Diffusing capacity unadjusted for Hb and COHb is within normal limits. AIRWAY RESISTANCE: The airway resistance and the specific conductance are normal. ARTERIAL BLOOD GAS ANALYSIS: Not performed IMPRESSION: 1. Isolated severe air trapping in an otherwise normal pulmonary function test. 2. No comparison study is available. Tevin Gaspar MD Division of Pulmonary, Critical Care, & Sleep Medicine [facility] P: [phone] 04/08/2020 , 9:25 AM Tevin Gaspar MD RESPIRATORY THERAPY ORDERABLES * MRI LUMBAR SPINE WO CONTRAST (11/29/2019 3:43 PM HITTING COACH) Anatomical Region Laterality Modality Spine Magnetic Resonan ce 11/29/2019 3:39 PM HITTING COACH Impressions 11/29/2019 4:05 PM HITTING COACH IMPRESSION: Severe degenerative changes at L5-S1 with a left central disc extrusion with inferior migration of disc material resulting in compression of the traversing left S1 nerve root. Severe stenosis of bilateral L4-5 and L5-S1 neural foramina. I, Dr. JORGE QUINTANILLA have personally reviewed and interpreted this examination/study. This report was electronically signed by JORGE QUINTANILLA ??on 11/29/2019 4:05 PM . Narrative 11/29/2019 4:05 PM HITTING COACH EXAMINATION: Magnetic resonance imaging (MRI) of the lumbar spine without contrast HISTORY: M48.062: Lumbar stenosis with neurogenic claudication TECHNIQUE: MRI of the lumbar spine was performed without contrast according to standard protocol. COMPARISON: No prior similar studies are available for comparison FINDINGS: The lumbar lordosis is maintained. The vertebrae are normal in height without MR evidence of acute fracture. There is no aggressive appearing marrow lesion. The lower spinal cord is unremarkable. The conus medullaris terminates at L1-2 and is unremarkable. The cauda equina is unremarkable. There is minimal fat in normal thickness filum terminale. There is no epidural fluid collection. The prevertebral and paraspinal soft tissues are unremarkable. Individual level analysis is as follows: L1-L2: Minimal disc bulge. Mild bilateral facet hypertrophy. No spinal canal or foraminal stenosis. L2-3: No significant disc bulge. Minor facet hypertrophy. No spinal canal or foraminal stenosis. L3-4: Mild circumferential disc bulge. Mild to moderate bilateral facet hypertrophy. Mild spinal canal stenosis. Moderate left and mild right foraminal stenosis. L4-5: Moderate circumferential disc bulge. Significant bilateral facet hypertrophy. Mild spinal canal stenosis and lateral recess stenosis. Severe bilateral foraminal stenosis. L5-S1: Complete loss of disc space height. Severe degenerative edema in the endplates. 5 mm retrolisthesis of L5 relative to S1. Moderate circumferential disc bulge. Superimposed moderate-sized left central disc extrusion with inferior migration of disc material. This herniated disc material measures 1 x 0.6 cm in transaxial dimensions and 1.4 cm in length. There is resultant compression of the traversing left S1 nerve root. There is severe stenosis of bilateral neural foramina. Procedure Note Jorge Quintanilla MD - 11/29/2019 EXAMINATION: Magnetic resonance imaging (MRI) of the lumbar spinewithout contrast HISTORY: M48.062: Lumbar stenosis with neurogenic claudication TECHNIQUE: MRI of the lumbar spine was performed without contrast according to standard protocol. COMPARISON: No prior similar studies are available for comparison FINDINGS: The lumbar lordosis is maintained. The vertebrae are normal in height without MR evidence of acute fracture. There is no aggressive appearing marrow lesion. The lower spinal cord is unremarkable. The conusmedullaris terminates at L1-2 and is unremarkable. The cauda equina isunremarkable. There is minimal fat in normal thickness filum terminale. There is no epidural fluid collection. The prevertebral and paraspinal soft tissues are unremarkable. Individual level analysis is as follows: L1-L2: Minimal disc bulge. Mild bilateral facet hypertrophy. No spinal canal or foraminal stenosis. L2-3: No significant disc bulge. Minor facet hypertrophy. No spinalcanal or foraminal stenosis. L3-4: Mild circumferential disc bulge. Mild to moderate bilateral facet hypertrophy. Mild spinal canal stenosis. Moderate left and mild right foraminal stenosis. L4-5: Moderate circumferential disc bulge. Significant bilateral facet hypertrophy. Mild spinal canal stenosis and lateral recess stenosis. Severe bilateral foraminal stenosis. L5-S1: Complete loss of disc space height. Severe degenerative edema in the endplates. 5 mm retrolisthesis of L5 relative to S1. Moderate circumferential disc bulge. Superimposed moderate-sized left centraldisc extrusion with inferior migration of disc material. This herniated disc material measures 1 x 0.6 cm in transaxial dimensions and 1.4 cm in length. There is resultant compression of the traversing left S1 nerve root. There is severe stenosis of bilateral neural foramina. IMPRESSION: Severe degenerative changes at L5-S1 with a left central disc extrusion with inferior migration of disc material resulting in compression of the traversing left S1 nerve root. Severe stenosis of bilateral L4-5 and L5-S1 neural foramina. I, Dr. JORGE QUINTANILLA have personally reviewed and interpreted this examination/study. This report was electronically signed by JORGE QUINTANILLA on 11/29/2019 4:05PM . April Mora MD MR ORDERABLES * XR SPINE ENTIRE 2 OR 3VW (11/04/2019 1:06 PM HITTING COACH) Anatomical Region Laterality Modality Radiographic Joann ging 11/04/2019 3:25 PM HITTING COACH Impressions 11/04/2019 3:32 PM HITTING COACH FINDINGS/IMPRESSION: There is no evidence of scoliosis. There is no coronal/sagittal imbalance. Pelvic tilt, left greater than right, measures approximately 1.5 cm. There is mild to moderate degenerative disc and joint disease. There is no evidence of vertebral subluxation on the sagittal view. Dictated by Harry Gomez MD (residential sales). Dr. PRANAY Duong have personally reviewed and interpreted this examination/study. This report was electronically signed by PRANAY MENDOZA ??on 11/04/2019 3:32 PM . Narrative 11/04/2019 3:32 PM HITTING COACH EXAMINATION: XR SPINE ENTIRE 2 OR 3VW HISTORY: M54.9: Back pain, unspecified back location, unspecified back pain laterality, unspecified chronicity COMPARISON: No prior study is available for comparison at the time of this dictation. Procedure Note Pranay Mendoza DO - 11/04/2019 EXAMINATION: XR SPINE ENTIRE 2 OR 3VW HISTORY: M54.9: Back pain, unspecified back location, unspecified back pain laterality, unspecified chronicity COMPARISON: No prior study is available for comparison at the time ofthis dictation. FINDINGS/IMPRESSION: There is no evidence of scoliosis. There is no coronal/sagittalimbalance. Pelvic tilt, left greater than right, measures approximately 1.5 cm.There is mild to moderate degenerative disc and joint disease. There is no evidence of vertebral subluxation on the sagittal view. Dictated by Harry Gomez MD (residential sales). Dr. PRANAY Duong have personally reviewed and interpreted this examination/study. This report was electronically signed by PRANAY MENDOZA on 11/04/2019 3:32 PM . April Mora MD DIAGNOSTIC IMAGING O RDERABLES * LAB RESULTS ORDER (09/20/2019 12:48 PM HITTING COACH) Only the most recent of3 resultswithin the time period is included. Narrative 09/20/2019 12:48 PM HITTING COACH Ordered by an unspecified provider. Scanned Document LAB - THERAPEUTIC DR PENA MONITORING ORDERABLES * HEPATITIS C AB W/RFLX TO HCV RNA QN PCR (09/19/2019 9:17 AM HITTING COACH) Hepatitis C Antibody NON-REACTI VE NON-REACT FELY [facility] Signal to Cut-Off 0.03 <1.00 [facility] Comment: HCV antibody was non-reactive. There is no laboratory evidence of HCV infection. In most cases, no further action is required. However, if recent HCV exposure is suspected, a test for HCV RNA (test code 23771) is suggested. For additional information please refer to http://education.Annexon/faq/OFR73a8 (This link is being provided for informational/ educational purposes only.) Test Performed at: [facility] [place], [place] ??[id number] PRUDENCIO ALDANA DO,MPH 09/19/2019 9:17 AM HITTING COACH 09/19/2019 9:21 AM HITTING COACH Monica Tellez RN CARDIAC CATH-SALES ASSISTANT ENTERTAINMENT AND MEDIA LAB - CHEMI STRY ORDERABLES [facility] [address] [place] [address] * VITAMIN B12 (09/19/2019 9:17 AM HITTING COACH) Vitamin B12 656 200 - 1100 pg/mL [facility] Comment: Test Performed at: [facility] [address] [place], [place] ??[id number] PRUDENCIO ALDANA DO,MPH Blood BLOOD SPECIMEN / Unknown 09/19/2019 9:17 AM HITTING COACH 09/19/2019 9:21 AM HITTING COACH Monica Tellez RN CARDIAC CATH-SALES ASSISTANT ENTERTAINMENT AND MEDIA LAB - CHEMI STRY ORDERABLES Performing Organization Address [facility] Co de Phone Number [facility] [id number] [place] [address] * TSH (09/19/2019 9:17 AM HITTING COACH) TSH 0.66 0.40 - 4.50 mIU/L [facility] Comment: Test Performed at: [facility] [place], [place] ??[phone] PRUDENCIO ALDANA DO,MPH Blood BLOOD SPECIMEN / Unknown 09/19/2019 9:17 AM HITTING COACH 09/19/2019 9:21 AM HITTING COACH Monica Mercerbraxtonsaurabh RN CARDIAC CATH-SALES ASSISTANT ENTERTAINMENT AND MEDIA LAB - CHEMI STRY ORDERABLES Performing Organization Address [facility] [place] [address] * URINALYSIS REFLEX TO MICROSCOPIC NO CULTURE (07/25/2019 9:35 AM CDT) Color UA YELLOW YELLOW [facility] Appearance CLEAR CLEAR [facility] Specific [place] UA 1.016 1.001 - 1.035 [facility] pH UA 5.5 5.0 - 8.0 [facility] Glucose UA NEGATIVE NEGATIVE [facility] Bilirubin UA NEGATIVE NEGATIVE [facility] Ketone UA NEGATIVE NEGATIVE [facility] Blood UA NEGATIVE NEGATIVE [facility] Protein UA NEGATIVE NEGATIVE [facility] Nitrite UA NEGATIVE NEGATIVE [facility] Leukocyte UA NEGATIVE NEGATIVE [facility] Comment: REPORT COMMENT: FASTING:YES Test Performed at: [facility] [place] ??[phone] PRUDENCIO ALDANA DO,MPH 07/25/2019 9:35 AM CDT 07/25/2019 9:37 AM CDT Monica Tellez RN CARDIAC CATH-SALES ASSISTANT ENTERTAINMENT AND MEDIA LAB - URINA LYSIS ORDERABLES Performing Organization Address [facility] Co de Phone Number [facility] [address] [place] [address] * (ABNORMAL) HEMOGLOBIN A1C (07/25/2019 9:35 AM CDT) Hemoglobin A1c 5.7(H) <5.7 % of total Hgb [facility] Comment: For someone without known diabetes, a hemoglobin A1c value between 5.7% and 6.4% is consistent with prediabetes and should be confirmed with a follow-up test. For someone with known diabetes, a value <7% indicates that their diabetes is well controlled. A1c targets should be individualized based on duration of diabetes, age, comorbid conditions, and other considerations. This assay result is consistent with an increased risk of diabetes. Currently, no consensus exists regarding use of hemoglobin A1c for diagnosis of diabetes for children. REPORT COMMENT: FASTING:YES Test Performed at: [facility] [address] [place], [place] ??[phone] PRUDENCIO ALDANA DO,MPH 07/25/2019 9:35 AM CDT 07/25/2019 9:37 AM CDT Monica Tellez RN CARDIAC CATH-SALES ASSISTANT ENTERTAINMENT AND MEDIA LAB - CHEMI STRY ORDERABLES [facility] [address] [place] [address] * (ABNORMAL) CMP 14 ABAXIS (ALEC WAIVED) [facility] (07/25/2019) Creatinine 0.88 Potassium 4.7 Sodium 136 Calcium Total 9.5 Hemoglobin A1c 5.7(A) 4.0 - 5.6 % Cholesterol 165 HDL 59 40 mg/dL Triglycerides 49 LDL 92 Hemoglobin 13.0(A) 13.5 - 18.0 g/dL Hematocrit 40 39 - 54 % WBC 5.4 Platelet 254 AST 17 5 - 34 U/L ALT 20(A) 21 - 72 U/L Alkaline Phosphatase 108 U/L Blood BLOOD SPECIMEN / Unknown 07/25/2019 Historical Provider LAB - CHEMISTRY O RDERABLES * XR PELVIS W BILAT HIP 2VW (05/20/2019 11:09 AM CDT) Anatomical Region Laterality Modality Pelvis, Lower Extremity Radiogra phic Imaging 05/20/2019 1:11 PM CDT Impressions 05/20/2019 1:43 PM CDT IMPRESSION: Mild degenerative change without joint space narrowing. Dictated by Georgie Huntley MD (residential energy auditor). Dr. BOOKER Duong MD have personally reviewed and interpreted this examination/study. This report was electronically signed by BOOKER DEE MD ??on 05/20/2019 1:43 PM . Narrative 05/20/2019 1:43 PM CDT EXAMINATION: XR PELVIS W BILAT HIP 2VW HISTORY: Hip pain COMPARISON: No prior study is available for comparison. FINDINGS: No acute fracture is identified. There is mild degenerative change in the hips with subchondral sclerosis and subchondral cysts, without joint space narrowing. A small amount of gas is suggested in the hip joints on the lateral views, likely positional. The pubic symphysis is intact. The osseous architecture and density are normal. The sacroiliac joints demonstrate mild arthritis, right greater than left. Procedure Note Booker Dee MD - 05/20/2019 EXAMINATION: XR PELVIS W BILAT HIP 2VW HISTORY: Hip pain COMPARISON: No prior study is available for comparison. FINDINGS: No acute fracture is identified. There is mild degenerative change inthe hips with subchondral sclerosis and subchondral cysts, without jointspace narrowing. A small amount of gas is suggested in the hip joints on the lateral views, likely positional. The pubic symphysis is intact. The osseous architecture and density are normal. The sacroiliac joints demonstrate mild arthritis, right greater than left. IMPRESSION: Mild degenerative change without joint space narrowing. Dictated by Georgie Huntley MD (residential energy auditor). Dr. BOOKER Duong MD have personally reviewed and interpreted this examination/study. This report was electronically signed by BOOKER DEE MD on05/20/2019 1:43 PM . Alexsandra CARNES-Lukasz DIAGNOSTIC IMAG ING ORDERABLES * XR THORACIC SPINE 2VW (02/21/2019 11:25 AM CDT) Anatomical Region Laterality Modality Spine Radiographic Joann ging 02/21/2019 12:3 7 PM CDT Impressions 02/21/2019 12:40 PM CDT IMPRESSION: Diffuse idiopathic skeletal hyperostosis. This report was electronically signed by BOOKER DEE MD ??on 02/21/2019 12:40 PM . Narrative 02/21/2019 12:40 PM CDT Exam: ??XR THORACIC SPINE 2VW History: ??back pain Comparison: CT chest dated 09/14/2019. Findings: The kyphosis is normal. No fracture or subluxation is seen. There is anterior bridging ossification across multiple thoracic disc spaces consistent with diffuse idiopathic skeletal hyperostosis. Procedure Note Booker Dee MD - 02/21/2019 Exam: XR THORACIC SPINE 2VW History: back pain Comparison: CT chest dated 09/14/2019. Findings: The kyphosis is normal. No fracture or subluxation is seen. There is anterior bridging ossification across multiple thoracic disc spaces consistent with diffuse idiopathic skeletal hyperostosis. IMPRESSION: Diffuse idiopathic skeletal hyperostosis. This report was electronically signed by BOOKER DEE MD on02/21/2019 12:40 PM . Alexsandra Rosa PA-C DIAGNOSTIC IMAG ING ORDERABLES * FL NERVE BLOCK L OR S UNILAT (11/14/2018 11:58 AM HITTING COACH) Anatomical Region Laterality Modality Spine X-Ray Angiograph y Narrative 11/14/2018 12:51 PM HITTING COACH History: 58 year old male with chronic low back pain radiating into both thighs posteriorly. Operators: 1. ??Dr. Ferris, Attending Physician 2. ??Dr. Echavarria, Resident Physician Anesthesia: Local with 5 mL of 1% lidocaine. Procedure: 1. ??Fluoroscopy-guided left L4-5 transforaminal nerve root steroid injection. 2. ??Fluoroscopy-guided right L4-5 transforaminal nerve root steroid injection. Fluoroscopic time: 10.7 minutes ?Contrast: 4 mL of Omnipaque 180 Procedure details: The procedure, risks, and possible complications were explained to the patient in detail, and informed consent was obtained. The patient was placed prone on the procedure table. The lower back was prepped and draped in the usual sterile manner. LEFT: Pre-procedure fluoroscopy was done in the region of interest, and the needle entry site was marked on the lower back. After injection of 1% lidocaine for local anesthesia, a 22-gauge 5.0-inch spinal needle was advanced below the left L4 pedicle. Contrast was injected and confirmed proper positioning as it was seen outlining the nerve root. Subsequently, a mixture of 1 mL betamethasone (6 mg/mL) and 1 mL 0.5% bupivacaine was injected. The needle was removed, and band-aid was applied. RIGHT: Pre-procedure fluoroscopy was done in the region of interest, and the needle entry site was marked on the lower back. After injection of 1% lidocaine for local anesthesia, a 20-gauge 15-cm Chiba needle was advanced below the right L4 pedicle. Contrast was injected and confirmed proper positioning as it was seen outlining the nerve root. Subsequently, a mixture of 1 mL betamethasone (6 mg/mL) and 1 mL 0.5% bupivacaine was injected. The needle was removed, and sterile dressing was applied. The patient tolerated the procedure well and was transferred to the holding area in stable condition. There were no immediate complications associated with the procedure. The patient's pain level before the procedure was 6/10. The patient's pain level after the procedure was 1/10. Impression: Bilateral L4-5 transforaminal nerve root steroid injections under fluoroscopic guidance with improvement in the patient's pain. I, Dr. Ferris, performed/was present throughout the procedure. Reading Radiologist: Leatha Ferris MD on 11/14/2018 at 12:51 PM Alexsandra Rosa PA-C FLUOROSCOPY ORD ERABLES * COMPLETE PFT W/WO BRONCHODILATOR (09/17/2018 6:49 AM HITTING COACH) Impressions Rhianna Moctezuma MD - 09/17/2018 6:49 AM HITTING COACH [facility] DEPARTMENT OF PULMONARY, CRITICAL CARE, AND SLEEP MEDICINE PULMONARY FUNCTION TESTS Josafat Branch Umesh 09/14/2018 INTERPRETATION Please see technologist's comments mentioned above. SPIROMETRY: FVC is Normal. FEV1 is Normal. FEV1/FVC ratio is Normal. There is no significant response to bronchodilator administration. The inspection of the patient's flow-volume loops shows normal configuration of the inspiratory and expiratory limbs. LUNG VOLUMES: TLC is Normal. RV is High. DLCO: Diffusing capacity unadjusted for Hb and COHb is Normal. AIRWAY RESISTANCE: The airway resistance is Normal and the specific conductance is Normal. ARTERIAL BLOOD GAS ANALYSIS: none IMPRESSION: 1. Normal spirometry. 2. Mild air trapping without evidence of hyperinflation. 3. There is no significant response to bronchodilator administration. This does not preclude the use of bronchodilator therapy. 4. There is no previous study available for comparison. Chencho Ambrocio MD ATTENDING PHYSICIAN ATTESTATION/RHIANNA MOCTEZUMA M.D.: I have personally reviewed and interpreted the above test and I have made the necessary changes if needed to the above interpretation. Narrative Rhianna Moctezuma MD - 09/17/2018 6:49 AM HITTING COACH Chencho Ambrocio MD ? 09/14/2018 ??4:51 PM Edith Hemphill MD RESPIRATORY THERAPY ORDERABLES * SIX MINUTE WALK (09/17/2018 6:49 AM HITTING COACH) Impressions Rhianna Moctezuma MD - 09/17/2018 6:49 AM HITTING COACH [facility] DEPARTMENT OF PULMONARY, CRITICAL CARE, AND SLEEP MEDICINE SIX MINUTE WALK TEST Josafat Calvo 09/14/2018 Interpretation: The patient walked for 6 minutes on room air and covered total distance of 430 meters. On the Jacqueline scale at baseline, reported dyspnea was 0 and fatigue was 0. ??At the end of the study, the Jacqueline reported dyspnea was 3 and fatigue was 3. ??There were no additional symptoms reported and oxygen saturation remained 97% throughout the test. IMPRESSION: 1. Total 6 minute walk distance is 430 meters, which is ABOVE the lower limit of normal of 370 meters for this patient. 2. No previous for comparison. Chencho Ambrocio MD ATTENDING PHYSICIAN ATTESTATION/RHIANNA MOCTEZUMA M.D.: I have personally reviewed and interpreted the above test and I have made the necessary changes if needed to the above interpretation. Narrative Rhianna Moctezuma MD - 09/17/2018 6:49 AM HITTING COACH Chencho Ambrocio MD ? 09/14/2018 ??4:47 PM Edith Hemphill MD RESPIRATORY THERAPY ORDERABLES * PFT OXYGEN DESATURATION STUDY (09/17/2018 6:49 AM HITTING COACH) Impressions Rhianna Moctezuma MD - 09/17/2018 6:49 AM HITTING COACH [facility] DEPARTMENT OF PULMONARY, CRITICAL CARE, AND SLEEP MEDICINE OXYGEN TITRATION STUDY Josafat Calvo 09/14/2018 INTERPRETATION The test was performed on the treadmill at a speed of 1 mph at room air. ??The patient was able to complete 4 minutes with lowest SpO2 of 98%. Then the treadmill speed was increased to 2 mph, the patient's SpO2 dropped to 97% at minute 2 and oxygen saturation remained above 97% throughout the test. IMPRESSION 1. At the above level of activity the patient's oxygen saturation remained above 97% on room air. The patient did not have a significant oxygen desaturation while walking at 1- 2 mph. 2. No previous available for comparison. Chencho Ambrocio MD ATTENDING PHYSICIAN ATTESTATION/RHIANNA MOCTEZUMA M.D.: I have personally reviewed and interpreted the above test and I have made the necessary changes if needed to the above interpretation. Narrative Rhianna Moctezuma MD - 09/17/2018 6:49 AM HITTING COACH Chencho Ambrocio MD ? 09/14/2018 ??4:44 PM Edith Hemphill MD PFT ORDERABLES * FRACTIONAL EXHALED NITRIC OXIDE (09/17/2018 6:49 AM HITTING COACH) Impressions Rhianna Moctezuma MD - 09/17/2018 6:49 AM HITTING COACH [facility] DEPARTMENT OF PULMONARY, CRITICAL CARE, AND SLEEP MEDICINE EXHALED NITRIC OXIDE (FeNO) Josafat Calvo 09/14/2018 INTERPRETATION The measurement of fractional exhaled nitric oxide (FENO) was 5 ppb. IMPRESSION: 1. Normal fractional exhaled nitric oxide. 2. No prior study to compare. Chencho Ambrocio MD ATTENDING PHYSICIAN ATTESTATION/RHIANNA MOCTEZUMA M.D.: I have personally reviewed and interpreted the above test and I have made the necessary changes if needed to the above interpretation. Narrative Rhianna Moctezuma MD - 09/17/2018 6:49 AM HITTING COACH Chencho Ambrocio MD ? 09/14/2018 ??4:43 PM Edith Hemphill MD RESPIRATORY THERAPY ORDERABLES * (ABNORMAL) GLUCOSE - POINT OF CARE (11/04/2015 10:34 PM HITTING COACH) Glucose WB/POC 210(H) 70 - 125 mg/dL 11/05/2015 6:16 AM HITTING COACH [facility] Blood BLOOD SPECIMEN / Unknown 11/04/2015 10:34 PM HITTING COACH 11/05/2015 6:16 AM HITTING COACH Narrative [facility] - 11/05/2015 6:16 AM HITTING COACH NOTIFIED CAREGIVER Robert Angelo DO LAB - POINT OF CARE ORDERABLES [facility] [address] * VALPROIC ACID LEVEL (11/04/2015 11:03 AM HITTING COACH) Pathologist [facility] Valproic Acid 57.84 50 - 100 ug/mL 11/04/2015 11:53 AM HITTING COACH [facility] Blood BLOOD SPECIMEN / Unknown Lab Venipuncture / Unknown 11/04/2015 11:03 AM HITTING COACH 11/04/2015 11:09 AM HITTING COACH Lucille Dong RN CARDIAC CATH-SALES ASSISTANT ENTERTAINMENT AND MEDIA LAB - CHEMISTRY ORDERABLES Performing Organization Address City/[facility]/ZIP Co de Phone Number [facility] [address] Care Teams Color Consultant Relationship Specialty Start Date End Date Natalie Baum [address] [place] [address] PCP - General 05/06/24 Katina Casiano DO [address] [facility] 2L DIV OF [facility] INTERNAL MEDICINE [place], [place] Hospitalist 06/05/23 Tracey Ang PA [address] [facility] [address] [place] [address] Physician Sweet Potato Disintegrator 08/15/23
--- OUTSIDE RECORDS SUMMARY | 2024-10-30 06:47 | XMS_ITS | Encounter Summary ---
Author Organization [facility] Address [address] [place] [address] Care Team Providers Care Hobbing Press Operator Name Role Phone Katina Casiano DO Unavailable [phone] Tracey Ang PA Unavailable [phone] Belkis Angel PLANER OPERATOR / GRADER-INSPECTOR [employer] DETAIL Primary Care Provider + Reason for Visit * Reason Comments Refill Request Encounter Details Date Type Department Care Team (Late st Contact Info) Description 02/22/2024 Refill [facility] [address] [place] [address] Adebayo Weeks MD [address] [place] [address] Refill Request Social History Tobacco Use Types Packs/Day Years [...] as of this encounter Visit Diagnoses Diagnosis Asthma-COPD overlap syndrome (HCC) documented in this encounter Care Teams Hobbing Press Operator Relationship Specialty Start Date End Date Belkis Angel, PLANER OPERATOR / GRADER-INSPECTOR [employer] DETAIL [address] [facility] 2nd [place] [address] PCP - General Nurse Practitioner 08/29/23 05/05/24 Katina Casiano DO [address] [facility] 2L DIV OF [facility] INTERNAL MEDICINE [place], [place] Hospitalist 06/05/23 Tracey Ang PA [address] [facility] [address] [place] [address] Physician Linen Room Worker 08/15/23 documented as of this encounter
--- OUTSIDE RECORDS SUMMARY | 2024-10-30 06:47 | XMS_ITS | Clinical Summary ---
Author Organization [facility] Address [address] [place] [address] Phone Care Team Providers Care School Clerk Name Role Phone SADIE JACK MD Unavailable [...] On 0 10:36AM By PAUL DAVIS-ANAYA ; [facility] Gabapentin 600 MG Oral Tablet 05/26/2020 Provider: PAUL MAJANO Diagnosis: Radiculopathy, l umbar region TAKE 1 TABLET BY MOUTH THREE TIMES DAILY. Last Documented On 0 2:54PM By PAUL NUNEZ ; [facility] Triamcinolone Acetonide 0.1% External Cream 10/07/2019 Provider: Diagnosis: Last Documented On 9 11:28AM By Faye MEJÍA ; [facility] Spironolactone 50 MG Oral Tablet 10/07/2019 Provider : Diagnosis: Last Documented On 9 11:27AM By Faye MEJÍA ; [facility] Omeprazole 40 MG Oral Capsule Delayed Release 10/07/20 Provider: Diagnosis: Last Documented On 9 11:27AM By Faye MEJÍA ; [facility] Ibuprofen 600 MG Oral Tablet 10/07/2019 Provider: Diagnosis: Last Documented On 9 11:27AM By Faye MEJÍA ; [facility] hydrOXYzine Pamoate 50 MG Oral Capsule 10/07/2019 Pr ovider: Diagnosis: Last Documented On 9 11:26AM By Faye MEJÍA ; [facility] Carvedilol 25 MG Oral Tablet 10/07/2019 Provider: Diagnosis: Last Documented On 9 11:26AM By Faye MEJÍA ; [facility] Medications Administered Includes: Administered Medications from this encounter No Administered Medications Recorded Results Includes: Results discussed during this encounter No Results Recorded For Specified Dates History of Present Illness Includes: History of Present Illness from this encounter No History of Present Illness Recorded Social History Description Last Updated Smoker 04/29/2020 Last Documented On 0 3:51PM ; [facility] Smoking status : Current everyday smoker 10/07/2019 Last Documented On 0 3:51PM ; [facility] Medical History Includes: Medical History addressed [...] Active Last Documented On 0 8:29AM ; [facility] Lisinopril Allergy 10/07/2019 Active Last Documented On 0 8:29AM ; [facility] Encounters Encounter Provider Location Date Check-In Time Check-Out Time Diagnosis RX ISSUE/REFILL PAUL DAVIS-ANAYA 06/23/2020 3:51PM 11:59PM Insurance Includes: Active Insurance Policies Plan Name Member ID Group # Subscriber Relationship Effect jeannine Dates 1 - [facility] [id number] RYLEE GRAY Self Clinical Notes Includes: Clinical Notes from this encounter No Clinical Notes Recorded
--- OUTSIDE RECORDS SUMMARY | 2024-10-30 06:47 | XMS_ITS | Encounter Summary ---
Author Organization [facility] Health Address [address] [place] [address] Care Team Providers Care Production Foreman Name Role Phone Katina Casiano DO Unavailable [phone] Tracey Ang PA Unavailable [phone] Belkis Angel CLINICAL BUSINESS MANAGER-PRINTING SUPPLIES SALES REPRESENTATIVE Primary Care Provider + Reason for Visit * Reason Comments Refill Request Encounter Details Date Type Department Care Team (Late st Contact Info) Description 02/20/2024 Refill [facility] - Pulmonology [address] [place] [id number] Adebayo Weeks MD [address] [place] [address] Refill Request Social History Tobacco Use Types [...] (HCC) documented in this encounter Care Teams Production Foreman Relationship Specialty Start Date End Date Belkis Angel, CLINICAL BUSINESS MANAGER-PRINTING SUPPLIES SALES REPRESENTATIVE [address] [facility] 2nd [place] [address] PCP - General Nurse Practitioner 08/29/23 05/05/24 Katina Casiano DO [address] [facility] 2L DIV OF [facility] INTERNAL MEDICINE [place], [place] Hospitalist 06/05/23 Tracey Ang PA [address] [facility] [address] [place] [address] Physician Vacuum Drier Tender 08/15/23 documented as of this encounter
--- OUTSIDE RECORDS SUMMARY | 2024-10-30 06:47 | XMS_ITS | Encounter Summary ---
Author Organization [facility] Health Address [address] [place] [address] Care Team Providers Care Banquet Lead Name Role Phone Katina Casiano DO Unavailable [phone] Tracey Ang PA Unavailable [phone] Belkis Angel NET COORDINATOR-DIRECTOR OF PARTNER MARKETING Primary Care Provider + Encounter Details Date Type Department Care Team (Latest Contact Info) Description 01/29/2024 Travel Social History Tobacco Use Types Packs/Day [...] on filedocumented in this encounter Care Teams Banquet Lead Relationship Specialty Start Date End Date Belkis Angel, NET COORDINATOR-DIRECTOR OF PARTNER MARKETING [address] [facility] 2nd [place] [address] PCP - General Nurse Practitioner 08/29/23 05/05/24 Katina Casiano DO [address] [facility] 2L DIV OF [facility] INTERNAL MEDICINE [place], [place] Hospitalist 06/05/23 Tracey Ang PA [address] [facility] [address] [place] [address] Physician Casino Attendant 08/15/23 documented as of this encounter
--- OUTSIDE RECORDS SUMMARY | 2024-10-30 06:47 | XMS_ITS | Clinical Summary ---
Author Organization [facility] Address [address] [place] [address] Phone Care Team Providers Care Supervisor [employer] Name Role Phone SADIE JACK MD Unavailable [...] On 0 10:36AM By PAUL DAVIS-ANAYA ; [facility] Gabapentin 600 MG Oral Tablet 05/26/2020 Provider: PAUL MAJANO Diagnosis: Radiculopathy, l umbar region TAKE 1 TABLET BY MOUTH THREE TIMES DAILY. Last Documented On 0 2:54PM By PAUL NUNEZ ; [facility] Triamcinolone Acetonide 0.1% External Cream 10/07/2019 Provider: Diagnosis: Last Documented On 9 11:28AM By Faye MEJÍA ; [facility] Spironolactone 50 MG Oral Tablet 10/07/2019 Provider : Diagnosis: Last Documented On 9 11:27AM By Faye MEJÍA ; [facility] Omeprazole 40 MG Oral Capsule Delayed Release 10/07/20 Provider: Diagnosis: Last Documented On 9 11:27AM By Faye MEJÍA ; [facility] Ibuprofen 600 MG Oral Tablet 10/07/2019 Provider: Diagnosis: Last Documented On 9 11:27AM By Faye MEJÍA ; [facility] hydrOXYzine Pamoate 50 MG Oral Capsule 10/07/2019 Pr ovider: Diagnosis: Last Documented On 9 11:26AM By Faye MEJÍA ; [facility] Carvedilol 25 MG Oral Tablet 10/07/2019 Provider: Diagnosis: Last Documented On 9 11:26AM By Faye MEJÍA ; [facility] Medications Administered Includes: Administered Medications from this [...] Active Last Documented On 0 8:29AM ; [facility] Lisinopril Allergy 10/07/2019 Active Last Documented On 0 8:29AM ; [facility] Insurance Includes: Active Insurance Policies Plan Name Member ID Group # Subscriber Relationship Effect jeannine Dates - [facility] [id number] RYLEE GRAY Self Clinical Notes Includes: Clinical Notes from this encounter No Clinical Notes Recorded
--- OUTSIDE RECORDS SUMMARY | 2024-10-30 06:47 | XMS_ITS | Clinical Summary ---
Author Organization [facility] Address [address] [place] [address] Care Team Providers Care Wheel Roller Name Role Phone Katina Casiano DO Unavailable [phone] Tracey Ang PA Unavailable [phone] Natalie Baum Primary Care Provider [phone] Source Comments [facility],non-owned Affiliates and Associated Physician Practices is amultiple site organization consisting of ambulatory clinics and hospital sitesin [place], [place], [place] and [place]. This disclosure is being madepursuant to the Care Everywhere program and may not contain all information available regarding this patient. Last updated 18.[facility] Allergies Active Allergy Reactions Criticality Noted Date [...] 01/04/2023 Assessment & Plan (01/04/2023 2:27 PM LEGAL OFFICE ADMINISTRATOR): - sleep study pending Fatigue 01/04/2023 Assessment & Plan (01/04/2023 2:28 PM LEGAL OFFICE ADMINISTRATOR): - Check TSH - pending sleep study [...] 07/29/2022 Assessment & Plan (01/04/2023 2:26 PM LEGAL OFFICE ADMINISTRATOR): - Due for TDap, Zoster, Covid outside [...] 07/29/2022 Assessment & Plan (01/04/2023 2:19 PM LEGAL OFFICE ADMINISTRATOR): - Will try to resend Eplerenone, previously [...] 01/05/2022 Assessment & Plan (01/04/2023 2:26 PM LEGAL OFFICE ADMINISTRATOR): - Likely sleep-related, obesity, SHAYNE - Cont. PPI Sleep choking syndrome 01/05/2022 PND (paroxysmal nocturnal dyspnea) 01/05/2022 Bipolar affective disorder 12/24/2021 Back pain 12/24/2021 Family history of other specified conditions Asthma-COPD overlap syndrome 11/11/2021 Assessment & Plan (01/04/2023 2:18 PM LEGAL OFFICE ADMINISTRATOR): - Tob cessation Chronic midline low back pain without sciatica 0 11/09/2021 Lumbosacral disc disease 11/09/2021 Foraminal stenosis of lumbar region 11/09/2021 Heart failure with reduced ejection fraction 09/2021 Assessment & Plan (05/30/2023 3:04 PM CDT): HF with EF recovered to normal. Continue current treatment. Assessment & Plan (01/04/2023 2:16 PM LEGAL OFFICE ADMINISTRATOR): - See HTN above - Pt not [...] 07/11/2019 Assessment & Plan (01/04/2023 2:15 PM LEGAL OFFICE ADMINISTRATOR): - Stable, despite holding spirono due to [...] 11/06/2017 Assessment & Plan (01/04/2023 2:13 PM LEGAL OFFICE ADMINISTRATOR): - Encouraged cessation, ready to quit - [...] RECOM-MARY, QUADR. (FLUBLOCK QUADRIVALENT; 18Y+) (RIV4) 07/29/2022,07/26/2021 Family History Medical History Relation Name Comments Cancer - Lung Brother 1 Cancer - Other Brother 2 Heart Failure Father Cancer - Colon Mother Hypertension Sister Relation Name Status Comments Brother 1 Brother 2 (Age 66) Brother 3 Alive Father (Age 42) Maternal Grandfather Maternal Grandmother Mother (Age 75) Paternal Grandfather Paternal Grandmother Sister Alive Social History Tobacco Use Types Packs/Day Years [...] Mass Index 33.23 01/29/2024 12:43 PM CDT Plan of Treatment Health Maintenance Due Date Last Done Comments COLOGUARD (AGES 45-75) - COLON CA SCREENING 1961 CT COLONOGRAPHY - COLON CA SCREENING 1961 FIT - COLON CA SCREENING 1961 FLEX SIG - COLON CA SCREENING 1961 HIV SCREENING 1976 ZOSTER VACCINE (1 of 2) 2011 Respiratory Syncytial Virus (RSV) Vaccine Pt: or over 60 yrs (1 - Risk 60-74 years 1-dose series) 2021 COVID-19 VACCINE ( - season) 2024 09/29/2023, 09/14/2021, 01/17/2021, Additional history exists INFLUENZA VACCINE (#1) 2024 3, 07/29/2022, 07/26/2021, Additional history exists SCREENING FOR DIABETES 08/09/2025 2, 01/04/2021, 06/17/2020, Additional history exists COLON MONITORING 12/07/2027 12/07/2022, 05/2023, 05/07/2018 (Done Outside Per Report) Colorectal Cancer Screening 12/07/2027 COLONOSCOPY - COLON CA SCREENING 12/07/2032 12/07/2022, 12/07/2022, 05/07/2018 (Done Outside Per Report) DTAP/TDAP/TD VACCINES (3 - Td or Tdap) 09/29/2033 09/29/2023, 07/17/2017 HEPATITIS C SCREENING Completed 09/19/2019 PNEUMOCOCCAL VACCINE Completed 07/29/2022, 07/11/20 19 HEPATITIS B VACCINE Aged Out No longe r eligible based on patient's age to complete this topic HIB VACCINE Aged Out No longer eligi ble based on patient's age to complete this topic HPV VACCINE Aged Out No longer eligi ble based on patient's age to complete this topic MENINGOCOCCAL VACCINE Aged Out No scotty eugenio eligible based on patient's age to complete this topic Goals Goal Patient Goal Type Associated Problems Recent Progress Patient-Stated? Author Mobility General No Stephanie Gallegos, RN Note: Expected end date: *10/30/2019 The goal is to maintain or improve your mobility at the optimum level for you. Interventions: Procedures Procedure Name Priority Date/Time Associated Diagnosis Comments ENDOSCOPY, COLON, SCREENING Routine 12/07/2022 10:04 AM LEGAL OFFICE ADMINISTRATOR COMPREHENSIVE METABOLIC PANEL Routine 08/09/2022 1:47 PM CDT Weight loss HEPATITIS C AB W/RFLX TO HCV RNA QN PCR 09/19/2019 9:17 AM LEGAL OFFICE ADMINISTRATOR from Last 3 Months or Most Recently Relevant to Health Maintenance Results * ENDOSCOPY, COLON, SCREENING (12/07/2022 10:04 AM LEGAL OFFICE ADMINISTRATOR) Report Endoscopy POC Endoscopy Department Report _ [...] Procedure Code(s): ? --- Professional --- ? 94214, Colonoscopy, flexible; with removal of tumor(s), polyp(s), or ? other lesion(s) by snare technique Diagnosis Code(s): ?--- Professional --- ?Z86.010, Personal history of colonic polyps ?K63.5, Polyp of colon ?Z80.0, Family history of malignant neoplasm of ?digestive organs CPT copyright 2019 [employer]. All rights reserved. The codes documented in this report are preliminary and upon manager emergency department review may be revised to meet current compliance requirements. Tal Mccormick, 12/07/2022 10:49:20 AM Note Initiated On: 12/07/2022 10:04 AM Number of Addenda: 0 ? [facility] ? [address] [place], [place] [id number] [place] [address] [facility] 12/07/2022 10:0 4 AM LEGAL OFFICE ADMINISTRATOR Rae Mccormick MD GI PRO CEDURE ORDERABLES [facility] * (ABNORMAL) COMPREHENSIVE METABOLIC PANEL (08/09/2022 1:47 [...] 46 U/L [facility] Comment: Test Performed at: [facility] [address] [place], [place] ??[address] PRUDENCIO ALDANA DO,MPH Blood BLOOD SPECIMEN / Unknown 08/09/2022 1:47 PM CDT 08/09/2022 1:50 PM CDT Ian Pollock MD LAB - CHEMISTRY ORDE [facility] Organization Address City/State/ZIP Co de Phone Number [facility] [address] [place] [address] * HEPATITIS C AB W/RFLX TO HCV RNA QN PCR (09/19/2019 9:17 AM LEGAL OFFICE ADMINISTRATOR) Hepatitis C Antibody NON-REACTI VE NON-REACT FELY [facility] Signal to Cut-Off 0.03 <1.00 [facility] Comment: HCV antibody was non-reactive. There is no laboratory evidence of HCV infection. In most cases, no further action is required. However, if recent HCV exposure is suspected, a test for HCV RNA (test code 79310) is suggested. For additional information please refer to http://education.Keen IO.Napartner/faq/LJW40y5 (This link is being provided for informational/ educational purposes only.) Test Performed at: [facility] [address] [place] [place], [place] ??[address] PRUDENCIO ALDANA DO,MPH 09/19/2019 9:17 AM LEGAL OFFICE ADMINISTRATOR 09/19/2019 9:21 AM LEGAL OFFICE ADMINISTRATOR Monica Tellez FORM SETTER SUPERVISOR-LOADING MACHINE OPERATOR HELPER LAB - CHEMI STRY ORDERABLES [facility] [address] [place] [address] from Last 3 Months or Most Recently Relevant to Health Maintenance Advance Directives Documents on File Type Date Recorded Patient Maintenance Chief Expl anation Adv Directive/Living Will/POA 11/05/2015 12:22 PM * Full Code (Latest Code Status on File) Date Activated Date Inactivated Comments 11/01/2015 9:11 PM 11/05/2015 6:02 AM Care Teams Wheel Roller Relationship Specialty Start Date End Date Natalie Baum [address] [place] [address] PCP - General 05/06/24 Katina Casiano DO [address] [facility] 2L DIV OF [facility] INTERNAL MEDICINE [place], [place] Hospitalist 06/05/23 Tracey Ang PA [address] [facility] [address] [place] [address] Physician Civil Engineer'S Aide 08/15/23
--- OUTSIDE RECORDS SUMMARY | 2024-10-30 06:47 | XMS_ITS | Encounter Summary ---
Author Organization [facility] Address [address] [place] [address] Care Team Providers Care Clinical Product Manager Name Role Phone Katina Casiano DO Unavailable [phone] Tracey Ang PA Unavailable Natalie Baum Primary Care Provider [phone] Encounter Details Date Type Department Care Team (Latest Contact Info) Description 06/20/2024 Travel Social History Tobacco Use Types Packs/Day [...] on filedocumented in this encounter Care Teams Clinical Product Manager Relationship Specialty Start Date End Date Natalie Baum [address] [place] [address] PCP - General 05/06/24 Katina Casiano DO [address] OF [facility] INTERNAL MEDICINE [place], [place] Hospitalist 06/05/23 Tracey Ang PA [address] [facility] [address] [place] [address] Physician Rn Child 08/15/23 documented as of this encounter
--- OUTSIDE RECORDS SUMMARY | 2024-10-30 06:48 | XMS_ITS | Encounter Summary ---
Author Organization [facility] Health Address [address] [place] [address] Care Team Providers Care Marine Services Technician Name Role Phone Katina Casiano DO Unavailable [phone] Tracey Ang PA Unavailable [phone] Belkis Angel HIGH SCHOOL ADMISSIONS REPRESENTATIVE-DEVELOPMENT PROFESSIONAL Primary Care Provider + Reason for Visit * Reason Comments Refill Request Encounter Details Date Type Department Care Team (Late st Contact Info) Description 10/27/2023 Refill [facility] [address] [place] [address] Adebayo Weeks MD [address] [place] [address] Refill Request Social History Tobacco Use Types [...] encounter Miscellaneous Notes * Telephone Encounter - Tere Antunez RN - 10/27/2023 10:41 AM SPINNING LATHE OPERATOR AUTOMATIC Refill Request EDELMIRA:12/29/2022 NOV scheduled: 11/14/2023 LRF: 04/07/2023 Qty Disp:18g # of refills: 3 Allergies: Allergies Allergen Reactions ??? Lisinopril Anaphylaxis and Unknown ??? Pcn [Penicillins] Anaphylaxis ??? Penicillin G Swelling Pended Medication Order: Requested Prescriptions Pending Prescriptions Disp Refills ??? albuterol HFA (Proventil; Ventolin; Proair) 108 (90 Base) MCG/ACT inhaler [Pharmacy Med Name: ALBUTEROL HFA (VENTOLIN) INH] 3 Sig: INHALE 2 PUFFS BY MOUTH EVERY 6 HOURS NEEDED NING LATHE OPERATOR AUTOMATIC documented in this encounter Plan of Treatment [...] (HCC) documented in this encounter Care Teams Marine Services Technician Relationship Specialty Start Date End Date Belkis Angel, HIGH SCHOOL ADMISSIONS REPRESENTATIVE-DEVELOPMENT PROFESSIONAL [address] [address] PCP - General Nurse Practitioner 08/29/23 05/05/24 Katina Casiano DO [address] OF [facility] INTERNAL MEDICINE [place], [place] Hospitalist 06/05/23 Tracey Ang PA [address] [facility] [address] [place] [address] Physician Animal Shelter Clerk 08/15/23 documented as of this encounter
--- OUTSIDE RECORDS SUMMARY | 2024-10-30 06:48 | XMS_ITS | Encounter Summary ---
Author Organization [facility] Address [address] [place] [address] Care Team Providers Care Arc Welder Apprentice Name Role Phone Kaitna Casiano DO Unavailable [phone] Tracey Ang PA Unavailable [phone] Belkis Angel HYDROELECTRIC PLANT STRUCTURAL ENGINEER-SECOND CHEF Primary Care Provider + Reason for Visit * Reason Onset Date Comments MEDICATION REFILL 08/29/2023 Encounter Details Date Type Department Care Team (Late st Contact Info) Description 08/29/2023 Refill [facility] - Internal Med [address] [facility], [place] [address] Belkis Angel APRN-SECOND CHEF [address] [facility] 2nd [place] [address] MEDICATION REFILL Social History Tobacco Use Types [...] Telephone Encounter - Tere Antunez RN - 08/29/2023 11:12 AM CDT Refill Request EDELMIRA: 12/29/2022 NOV scheduled: 09/19/2023 LRF: 06/27/2023 Qty Disp: 30 # of refills:1 Allergies: Allergies Allergen Reactions ??? Lisinopril Anaphylaxis and Unknown ??? Pcn [Penicillins] Anaphylaxis ??? Penicillin G Swelling Pended Medication Order: Requested Prescriptions Pending Prescriptions Disp Refills ??? eplerenone (Inspra) 25 MG tablet 30 tablet 1 Sig: Take 1 (one) tablet by mouth once daily documented in this encounter Plan of Treatment Not on file documented as of this encounter Goals Goal Patient Goal Type Associated Problems Recent Progress Patient-Stated? Author Mobility General No Stephanie Gallegos RN Note: Expected end date: *10/30/2019 The goal is to maintain or improve your mobility at the optimum level for you. Interventions: documented as of this encounter Visit Diagnoses Diagnosis Heart failure with reduced ejection fraction (HCC) documented in this encounter Care Teams Arc Welder Apprentice Relationship Specialty Start Date End Date Belkis Angel, HYDROELECTRIC PLANT STRUCTURAL ENGINEER-SECOND CHEF [address] [address] PCP - General Nurse Practitioner 08/29/23 05/05/24 Katina Casiano DO [address] OF [facility] INTERNAL MEDICINE [place], [place] Hospitalist 06/05/23 Tracey Ang PA [address] [facility] [address] [place] [address] Physician Assistant Mechanic 08/15/23 documented as of this encounter
--- OUTSIDE RECORDS SUMMARY | 2024-10-30 06:48 | XMS_ITS | Encounter Summary ---
Author Organization [facility] Address [address] [place] [address] Care Team Providers Care Anime Artist Name Role Phone Ian Pollock MD Primary Care Provider [phone] Katina Casiano DO Unavailable [phone] Reason for Visit * Reason Onset Date Comments MEDICATION REFILL 05/25/2023 Encounter Details Date Type Department Care Team (Late st Contact Info) Description 05/25/2023 Refill [facility] - Internal Med [address] [facility] [place] [address] Liana Olivares MD [facility] [place] [address] MEDICATION REFILL Social History Tobacco Use Types [...] Telephone Encounter - Tere Antunez RN - 05/25/2023 8:27 AM CDT Refill Request EDELMIRA: 12/29/2022 NOV scheduled: Visit date not found LRF: 04/26/2023 Qty Disp: 53 tablet # of refills: 0 Allergies: Allergies Allergen Reactions ??? Lisinopril Anaphylaxis and Unknown ??? Pcn [Penicillins] Anaphylaxis ??? Penicillin G Swelling Pended Medication Order: Requested Prescriptions Pending Prescriptions Disp Refills ? ? varenicline (Chantix Starting Month ) 0.5 MG X 11 & 1 MG X 42 tablets 53 tablet 0 Sig: Take by mouth as directed Take 0.5 mg daily days 1-3, twice daily days 4-7, then 1 mg twice daily documented in this encounter Plan of Treatment Not on file documented as of this encounter Goals Goal Patient Goal Type Associated Problems Recent Progress Patient-Stated? Author Mobility General No Stephanie Gallegos RN Note: Expected end date: *10/30/2019 The goal is to maintain or improve your mobility at the optimum level for you. Interventions: documented as of this encounter Visit Diagnoses Diagnosis Tobacco abuse Tobacco use disorder documented in this encounter Care Teams Anime Artist Relationship Specialty Start Date End Date Ian Pollock MD [address] [place] [address] PCP - General 08/21/20 05/29/23 Katina Casiano DO [address] OF [facility] INTERNAL MEDICINE [place], [place] Resident - PCP Internal Medicine 08/10/22 05/29/23 documented as of this encounter
--- OUTSIDE RECORDS SUMMARY | 2024-10-30 06:48 | XMS_ITS | Encounter Summary ---
Author Organization [facility] Health Address [address] [facility] [place] [address] Care Team Providers Care Supervisor Knitting Name Role Phone Xavi ACOSTA MD, Jameel Gaviria Primary Care Provider + Katina Casiano DO Unavailable [phone] Encounter Details Date Type Department Care Team (Late st Contact Info) Description 06/28/2023 Orders Only [facility] - Urology [address] [facility] [place] [id number] Bridget Finley LPN Impotence due to erectile dysfunction Social History Tobacco Use Types Packs/Day Years [...] as of this encounter Visit Diagnoses Diagnosis Impotence due to erectile dysfunction Impotence of organic origin documented in this encounter Care Teams Supervisor Knitting Relationship Specialty Start Date End Date Jameel Hurley III, MD [address] DIV OF [facility] [place] [address] PCP - General Internal Medicine 06/05/23 08/28/23 Katina Casiano DO [address] DIV OF [facility] INTERNAL MEDICINE [place], [place] Hospitalist 06/05/23 documented as of this encounter
--- OUTSIDE RECORDS SUMMARY | 2024-10-30 06:48 | XMS_ITS | Encounter Summary ---
Author Organization [facility] Address [address] [place] [address] Care Team Providers Care Internal Sales Engineer Name Role Phone Katina Casiano DO Unavailable [phone] Tracey Ang Unavailable [phone] Belkis Angel RESTAURANT AND BAR MANAGER-[facility] Primary Care Provider + Reason for Referral * Cardiac (Routine) - Closed Specialty Diagnoses / Procedures Referred By Contac t Referred To Contact Cardiology Diagnoses Heart failure with reduced ejection fraction (HCC) Nonrheumatic mitral valve regurgitation Procedures ECHO COMPLETE NC TTE W/DOPPLER, COMPLETE NC TTE W/O DOPPLER, COMPLETE Tracey Ang PA [address] [place] [address] [facility] [address] [facility], [address] [address] Referral ID Status Reason Start Date Expiration Date Visits Re quested Visits Authorized [id number] Closed 01/22/2024 01/21/2025 1 1 ERIZING RANGE CONTROLLER Encounter Details Date Type Department Care Team (Late st Contact Info) Description 12/27/2023 Orders Only [facility] - Cardiology [address] [facility], [address] [address] Eli Mendez, parking patroller failure with reduced ejection fraction (HCC) ; Nonrheumatic mitral valve regurgitation Social History Tobacco [...] you. Interventions: documented as of this encounter Results * ECHO COMPLETE (01/29/2024 1:28 PM CDT) BSA [id number] m2 [facility] CV FUJ I PACS LV [...] I PACS LV RWT 0.319 [facility] CV [facility] I PACS LV Tena A2C 8.365 cm [facility] CV F UJI PACS LV Tena A4C 8.488 cm [facility] CV F UJI PACS IVS/LVPW 0.951 [facility] CV [facility] I PACS LV mass 2D 164.024 96 - 200 g [facility] CV FUJI PACS LV mass index 2D 71.29 50 - 102 g/m2 [facility] MV E pk dane 53.946 cm/s [facility] CV F UJI PACS MV avg E/e' ratio 8.68 SS M CV [facility] A pk dane 94.96 cm/s [facility] CV F UJI PACS MV E A ratio 0.57 [facility] MV E' lateral dane 9.716 cm/s SS M CV [facility] MV DT 283 ms [facility] CV [facility] I PACS MV E' septal dane 4.572 cm/s [facility] E/e' septal 11.8 [facility] C V FUJI PACS MV E/e' lateral 5.552 [facility] LA vol BP 49.935 mL [facility] CV [facility] I PACS LVOT pk dane 0.97 m/s SSM CV F UJI PACS LVOT mn dane 0.72 m/s S[facility] CV F UJI PACS LVOT mn grad 2.3 mmHg [facility] Cardiac Output 5.087 l/min [facility] CV FUJI PACS LVOT Cardiac Index 2.21 l/min/m2 [facility] CV FUJI PACS LA vol index 21.7 16 - 34 mL/m2 S[facility] CV FUJI PACS LA vol BP A-L 53.356 mL [facility] RVIDd 2.8 cm [facility] CV [facility] I PACS RVOT VTI 11.222 cm [facility]SM CV FUJ I PACS TV S' dane 12.426 cm/s [facility] CV FUJ I PACS TAPSE 1.978 1.7 cm [facility] CV FUJ I PACS RVOT pk dane 0.57 m/s SSM CV F UJI PACS RA area 18.022 cm2 S[facility] CV FUJ I PACS AV mn grad 4 mmHg [...] PV pk dane 117.812 cm/s [facility]SM CV FUJ I PACS PV pk grad 5 mmHg SSM CV FU JI PACS PV mn dane 76.873 cm/s SSM CV FUJ I PACS Ascending aorta 3.32 cm SSM CV FUJI PACS IVC size 1.7 cm SSM CV FUJ I PACS LA ESV A4C MOD Index 18 ml/m2 SSM CV FUJI PACS LA ESV A2C MOD Index 26 ml/m2 SSM CV FUJI PACS [id number] 7.143 cm SSM CV FUJ I PACS [id number] 7.525 cm SSM CV FUJ I PACS [...] Diagnosis Heart failure with reduced ejection fraction (HCC)- Primary Nonrheumatic mitral valve regurgitation Heart failure with reduced ejection fraction (HCC) Nonrheumatic mitral valve regurgitation documented in this encounter Care Teams Internal Sales Engineer Relationship Specialty Start Date End Date Belkis Angel, RESTAURANT AND BAR MANAGER-[employer] [address] [address] PCP - General Nurse Practitioner 08/29/23 05/05/24 Katina Casiano DO [address] OF [facility] [place], [place] Hospitalist 06/05/23 Tracey Ang PA [address] [facility] [address] [place] [address] Physician Derrick Worker [employer] 08/15/23 documented as of this encounter
--- OUTSIDE RECORDS SUMMARY | 2024-10-30 06:48 | XMS_ITS | Encounter Summary ---
Author Organization [facility] Address [address] [facility] [place] [address] Care Team Providers Care Life Insurance Sales Agent Name Role Phone Ian Pollock MD Primary Care Provider [phone] Katina Casiano DO Unavailable [phone] Reason for Visit * Reason Comments Refill Request Encounter Details Date Type Department Care Team (Late st Contact Info) Description 04/04/2023 Refill [facility] [address] [place] [address] Adebayo Weeks MD [address] [place] [address] Refill Request Social History Tobacco Use Types [...] encounter Miscellaneous Notes * Telephone Encounter - Ian Pollock MD - 04/05/2023 11:20 AM CDT Refill request should be sent to the prescribing physician not the PCP. * Telephone Encounter - Tere Antunez RN - 04/05/2023 9:02 AM CDT Refill Request EDELMIRA:12/29/2022 NOV scheduled: 07/25/2023 LRF:12/14/2022 Qty Disp: 6 # of refills: 6 Allergies: Allergies Allergen Reactions ??? Lisinopril Anaphylaxis and Unknown ??? Pcn [Penicillins] Anaphylaxis ??? Penicillin G Swelling Pended Medication Order: Requested Prescriptions Pending Prescriptions Disp Refills ??? albuterol HFA (Proventil; Ventolin; Proair) 108 (90 Base) MCG/ACT inhaler [Pharmacy Med Name: ALBUTEROL HFA (VENTOLIN) INH] 3 Sig: INHALE 2 PUFFS BY MOUTH EVERY 6 HOURS NEEDED documented in this encounter Plan of Treatment [...] (HCC) documented in this encounter Care Teams Life Insurance Sales Agent Relationship Specialty Start Date End Date Ian Pollock MD [address] DIV OF [facility] [place] [address] PCP - General 08/21/20 05/29/23 Katina Casiano DO [address] [facility] [address] DIV OF [facility] INTERNAL MEDIC[facility] [place], [place] Resident - PCP Internal Medicine 08/10/22 05/29/23 documented as of this encounter
--- OUTSIDE RECORDS SUMMARY | 2024-10-30 06:48 | XMS_ITS | Encounter Summary ---
Author Organization [facility] Address [address] [facility] [place] [address] Care Team Providers Care Groutman Name Role Phone Ian Pollock MD Primary Care Provider [phone] Katina Casiano DO Unavailable [phone] Reason for Visit * Procedure (Routine) - Closed Specialty Diagnoses / Procedures Referred By Contac t Referred To Contact Pulmonary Disease Diagnoses Pulmonary emphysema, unspecified emphysema type (HCC) Tobacco abuse Dyspnea on exertion Asthma, unspecified asthma severity, unspecified whether complicated, unspecified whether persistent (HCC) Procedures Complete PFT w/wo Bronchodilator [facility] PFT Lab Diego Moctezuma MD [address] [facility] [address] [place] [address] [facility] Pft [address] [place] [address] Referral ID Status Reason Start Date Expiration Date Visits Re quested Visits Authorized [id number] Closed 01/10/2023 01/10/2024 1 1 Encounter Details Date Type Department Care Team (Latest Contact Info) Description 03/14/2023 1:00 PM CDT - 03/14/2023 11:59 PM CDT Hospital Encounter [facility] PFT [address] [place] [address] aIn Pollock MD [address] OF [facility] [place] [address] Discharge Disposition: Home or Self Care Social History Tobacco Use Types Packs/Day Years [...] No 12/07/2022 documented as of this encounter Medications at Time of Discharge Medication Sig Dispensed Refills Start Date End Date acetaminophen (TYLENOL) 500 MG capsuleIndications:Pa in Take 1 (one) capsule by mouth every 4 hours as needed for Fever or Pain Reasons: Pain albuterol (Proventil;Ventolin) (2.5 MG/3ML) 0.083% nebulizer solutionIndications:C entrilobular emphysema (HCC),Asthma-COPD overlap syndrome (HCC) Inhale 2.5 (two and one-half) mg by mouth every 4 hours as needed for Shortness of Breath 75 mL 6 12/14/2022 aspirin (Aspirin Low Dose) 81 MG chew tablet CHEW AND SWALLOW 1 TAB DAILY 90 tablet 3 02/13/2023 fluticasone propionate (Flonase) 50 MCG/ACT nasal sprayIndications:Asth ma-COPD overlap syndrome (HCC) SHAKE LIQUID AND USE 2 SPRAYS IN EACH NOSTRIL EVERY DAY 16 g 11 12/14/2022 hydrOXYzine pamoate (VISTARIL) 100 MG capsule 07/10/2021 lamoTRIgine (LAMICTAL) 100 MG tablet 09/14/2020 loratadine (Claritin) 10 MG tabletIndications:[place] allergic rhinitis, unspecified trigger Take 1 (one) tablet by mouth once daily 90 tablet 4 01/10/2023 nicotine polacrilex (COMMIT) 4 MG lozengeIndications:Ni cotine Dependence Take 1 (one) Each by mouth as needed for Smoking Cessation Reasons: Nicotine Addiction 108 lozenge 3 01/19/2022 nicotine polacrilex (NICORETTE) 4 MG gumIndications:Nicoti ne Dependence Take 1 (one) Each by mouth as needed for Smoking Cessation Reasons: Nicotine Addiction 100 Each 3 01/19/2022 sildenafil (VIAGRA) 100 MG tabletIndications:Ere ctile Dysfunction Take 1 (one) tablet by mouth once as needed 1 hour prior to intercourse Reasons: Erectile Dysfunction 10 tablet 4 01/18/2022 tiotropium (Spiriva Respimat) 2.5 MCG/ACT inhalerIndications:Pu lmonary emphysema, unspecified emphysema type (HCC),Asthma, unspecified asthma severity, unspecified whether complicated, unspecified whether persistent (HCC) Inhale 2 (two) puffs by mouth once daily 12 g 4 03/14/2023 albuterol HFA (Proventil; Ventolin; Proair) 108 (90 Base) MCG/ACT inhalerIndications:Ce ntrilobular emphysema (HCC),Asthma-COPD overlap syndrome (HCC) Inhale 2 (two) puffs by mouth every 6 hours as needed 18 g 3 12/14/2022 04/07/2023 alfuzosin CR 24hr (Uroxatral) 10 MG tablet TAKE 1 TABLET BY MOUTH EVERY DAY 90 tablet 1 03/03/2023 09/18/2023 atorvastatin (Lipitor) 40 MG tablet Take 1 (one) tablet by mouth once daily 90 tablet 3 06/23/2022 12/25/2023 budesonide-formoterol (Symbicort) 160-4.5 MCG/ACT inhalerIndications:NO SUBSTITUTION, BRAND NAME ONLY Inhale 2 (two) puffs by mouth 2 times daily Reasons: NO SUBSTITUTION, BRAND NAME ONLY 10.2 g 3 12/14/2022 04/12/2023 carvedilol (Coreg) 12.5 MG tablet TAKE 1 (ONE) TABLET BY MOUTH 2 TIMES DAILY WITH MORNING AND EVENING MEAL 180 tablet 3 08/02/2022 08/14/2023 eplerenone (Inspra) 25 MG tabletIndications:Hea rt failure with reduced ejection fraction (HCC) Take 1 (one) tablet by mouth once daily 30 tablet 1 03/01/2023 06/05/2023 hydroCHLOROthiazide (Hydrodiuril) 25 MG tablet Take 1 (one) tablet by mouth once daily 90 tablet 3 10/18/2022 11/02/2023 lamoTRIgine (LaMICtal) 100 MG tablet Take 1 (one) tablet by mouth 2 times daily 01/29/2024 omeprazole (PriLOSEC) 40 MG capsuleIndications:Ga stroesophageal reflux disease without esophagitis Take 1 (one) capsule by mouth daily before breakfast 90 capsule 1 12/29/2022 06/26/2023 polyethylene glycol (Golytely) 236 g solution Drink 1/2 of prep at 6pm the night before test. Finish the prep at 6 am the morning of colonoscopy. 4000 mL 09/16/2022 01/29/2024 tadalafil (Cialis) 20 MG tabletIndications:Imp otence due to erectile dysfunction Take 1 (one) tablet by mouth once as needed (before sex for a better erection) 20 tablet 3 11/18/2022 06/28/2023 triamcinolone acetonide (Kenalog) 0.1 % cream Apply to affected area 2 times daily 60 g 12/14/2022 04/25/2023 varenicline (Chantix Starting Month ) 0.5 MG X 11 & 1 MG X 42 tabletsIndications:To bacco abuse Take by mouth as directed Take 0.5 mg daily days 1-3, twice daily days 4-7, then 1 mg twice daily 53 tablet 03/01/2023 03/28/2023 ziprasidone (GEODON) 40 MG capsule 08/25/2020 01/29/2024 documented as of this encounter Procedure Notes * Song Butler DO - 03/14/2023 2:36 PM CDTAssociated Order(s): COMPLETE PFT W/WO BRONCHODILATOR Images from the original note were not included. documented in this encounter Plan of Treatment [...] Procedure Name Priority Date/Time Associated Diagnosis Comments COMPLETE PFT W/WO BRONCHODILATOR Routine 03/14/2023 2:36 PM CDT Pulmonary emphysema, unspecified emphysema type (HCC) Tobacco abuse Dyspnea on exertion Asthma, unspecified asthma severity, unspecified whether complicated, unspecified whether persistent (HCC) documented in this encounter Results * Complete PFT w/wo Bronchodilator [facility] PFT Lab (03/14/2023 2:36 PM CDT) Impressions Ang Christie MD - 03/14/2023 2:36 PM CDT [facility] DEPARTMENT OF PULMONARY, CRITICAL CARE, AND [...] D.O. Pulmonary Disease & Critical Care Fellow [facility] Pager: [phone] I have reviewed the test data and agree with Dr. Butler's interpretations. Ang Christie MD 04/26/2023 Narrative Ang Christie MD - 03/14/2023 2:36 PM CDT Song Butler, DO ? 03/14/2023 ??2:42 PM Procedure Note Song Butler DO - 03/14/2023 2:36 PM CDT Images from the original note were not included. Diego Moctezuma MD RESPIRATORY THE RAPY ORDERABLES documented in this encounter Visit Diagnoses Not on filedocumented in this encounter Care Teams Groutman Relationship Specialty Start Date End Date Ian Pollock MD [address] [place] [address] PCP - General 08/21/20 05/29/23 Katina Casiano DO [address] DIV OF GEN INTERNAL MEDICINE [place], [place] Resident - PCP Internal Medicine 08/10/22 05/29/23 documented as of this encounter
--- OUTSIDE RECORDS SUMMARY | 2024-10-30 06:48 | XMS_ITS | Encounter Summary ---
Author Organization [facility] Address [address] [place] [address] Care Team Providers Care Food Photographer Name Role Phone Ian Pollock MD Primary Care Provider [phone] Katina Casiano DO Unavailable [phone] Reason for Visit * Cardiac (Routine) - Closed Specialty Diagnoses / Procedures Referred By Contac t Referred To Contact Cardiology Diagnoses Mitral valve insufficiency, unspecified etiology Procedures ECHO COMPLETE CT TTE W/DOPPLER, COMPLETE CT TTE W/O DOPPLER, COMPLETE Tracey Ang, PA [address] [place] [address] [facility] [address] [address] Referral ID Status Reason Start Date Expiration Date Visits Re quested Visits Authorized [id number] Closed 05/08/2023 05/07/2024 1 1 Encounter Details Date Type Department Care Team (Latest Contact Info) Description 05/15/2023 8:30 AM CDT Ancillary Procedure [facility] - Echosonography [address] [address] Mitral valve insufficiency, unspecified etiology Social History Tobacco Use Types Packs/Day Years [...] Sign Reading Time Taken Comments Blood Pressure 122/86 05/15/2023 9:24 AM CDT Pulse - - Temperature - - Respiratory Rate - - Oxygen Saturation - - Inhaled Oxygen Concentration - - Weight 103.9 kg (229 lb) 05/15/2023 9:24 AM CDT Height 175.3 cm (5' 9 ) 05/15/2023 9:24 AM CDT Body Mass Index 33.82 05/15/2023 9:24 AM CDT documented in this encounter Functional Status [...] Date/Time Associated Diagnosis Comments ECHO COMPLETE Routine 05/15/2023 9:25 AM CDT Mitral valve insufficiency, unspecified etiology documented in this encounter Results * ECHO COMPLETE (05/15/2023 9:25 AM CDT) BSA 2.5891296 m2 SSM CV FUJ I PACS LV biplane EF 71 52 - 72 % SSM CV FUJI PACS LV A2C EF 69 48 - 76 % SSM CV FUJ I PACS LV A4C EF 72 46 - 74 % SSM CV FUJ I PACS LVOT stroke vol 68.89 cm3 SSM CV FUJI PACS LV stroke vol 2D teich 77.295 ml SSM CV FUJI PACS LV stroke vol index A4C MOD 92.056 ml SSM CV FUJI PACS LVIDd 4.99 4.2 - 5.8 cm SSM CV FUJI PACS LVIDs 3.17 2.5 - 4.0 cm SSM CV FUJI PACS IVSd 2D 1.052 0.6 - 1 cm SSM CV FUJI PACS LVPWd 1.11 cm SSM CV FUJ I PACS Fractional Shortening 2D 31 28 - 44 % SSM CV FUJI PACS LV ESV BP 39.25 21 - 61 mL SSM CV FUJI PACS LV ESV index BP 17.2 11 - 31 mL/m2 SSM CV FUJI PACS LV ESV A2C 35.321 15 - 75 mL SSM CV FUJI PACS LV EDV BP 133.206 mL SSM CV FUJ I PACS LV ESV A4C 41.787 22 - 78 mL SSM CV FUJI PACS LV EDV index BP 58.3 34 - 74 mL/m2 SSM CV FUJI PACS LV EDV A2C 136.233 59 - 175 mL SSM CV FUJI PACS LV EDV A4C 127.377 mL SSM CV FU JI PACS LV ESV 2D 40.148 21 - 61 mL SSM CV FUJI PACS LV EDV 2D 117.442 62 - 150 mL SSM CV FUJI PACS LVOT diam 2.4 cm SSM CV FUJ I PACS LVOT area 4.37 cm2 SSM CV FUJ I PACS LV RWT 0.446 SSM CV FUJ I PACS LV Tena A2C 8.886 cm SSM CV F UJI PACS LV Tena A4C 8.85 cm SSM CV F UJI PACS IVS/LVPW 0.946 SSM CV FUJ I PACS MV E pk dane 58.503 cm/s SSM CV F UJI PACS MV avg E/e' ratio 8.142 SS M CV FUJI PACS MV A pk dane 118.916 cm/s SSM CV F UJI PACS MV E A ratio 0.49 SSM CV FUJI PACS MV E' lateral dane 9.457 cm/s SS M CV FUJI PACS MV DT 327 ms SSM CV FUJ I PACS MV E' septal dane 5.793 cm/s SSM CV FUJI PACS MV E/e' septal 10.098 SSM C V FUJI PACS MV E/e' lateral 6.186 SSM CV FUJI PACS LA vol BP 55.536 mL SSM CV FUJ I PACS LVOT pk dane 0.97 m/s SSM CV F UJI PACS LVOT mn dane 0.60 m/s SSM CV F UJI PACS LVOT mn grad 1.7 mmHg SSM CV FUJI PACS LVOT Cardiac Output 4.964 l/min SSM CV FUJI PACS GLS -15.0 % SSM CV FUJ I PACS AA pk sys strain -20.2 % SSM CV FUJI PACS AAS pk sys strain -16.5 % SS M CV FUJI PACS AI pk sys strain -22.7 % SSM CV FUJI PACS AL pk sys strain -18.2 % SSM CV FUJI PACS AP pk sys strain -18.4 % SSM CV FUJI PACS pk sys strain -16.7 % SSM CV FUJI PACS BA pk sys strain -11.3 % SSM CV FUJI PACS BAS pk sys strain -15.3 % SS M CV FUJI PACS BI pk sys strain -6.2 % SSM CV FUJI PACS BL pk sys strain -12.1 % SSM CV FUJI PACS BS pk sys strain -8.7 % SSM CV FUJI PACS GPLS A2C -15.0 % SSM CV FUJ I PACS GPLS A4C -14.6 % SSM CV FUJ I PACS GPLS APLAX -15.3 % SSM CV FU JI PACS MA pk sys strain -14.1 % SSM CV FUJI PACS MAS pk sys strain -18.4 % SS M CV FUJI PACS KY pk sys strain -17.3 % SSM CV FUJI PACS ML pk sys strain -17.2 % SSM CV FUJI PACS MP pk sys strain -14.1 % SSM CV FUJI PACS MS pk sys strain -18.4 % SSM CV FUJI PACS LA vol index 24.0 16 - 34 mL/m2 SSM CV FUJI PACS LA ESV A2C MOD Index 24 ml/m2 SSM CV FUJI PACS LA ESV A4C MOD Index 22 ml/m2 SSM CV FUJI PACS LA size 4.257 3.0 - 4.0 cm SSM CV FUJI PACS LA vol BP A-L 56.78 mL SSM CV FUJI PACS TV S' dane 11.654 SSM CV FUJ I PACS TAPSE 1.944 1.7 cm SSM CV FUJ I PACS RA vol index 17 mL/m2 SSM CV FUJI PACS RA area 15.999 cm2 SSM CV FUJ I PACS AV mn grad 3 mmHg SSM CV FU JI PACS AV pk grad 6 mmHg SSM CV FU JI PACS AV mn dane 0.82 m/s SSM CV FUJ I PACS AV pk dane 1.27 m/s SSM CV FUJ I PACS AV VTI 21.201 cm SSM CV FUJ I PACS LVOT pk grad 3.748 mmHg SSM CV FUJI PACS LVOT VTI 15.756 cm SSM CV FUJ I PACS AV area planimetry 3.36 cm2 SSM CV FUJI PACS AV area index 1.4 cm2/m2 SSM CV FUJI PACS AV area cont VTI 3.3 cm2 SSM CV FUJI PACS AV area pk dane 3.3 cm2 SSM C V FUJI PACS AV Doppler dane index pk dane 0.761 SSM CV FUJI PACS AV closure time 0.4 s SSM CV FUJI PACS Dimensionless Index 0.743 SSM CV FUJI PACS MR VTI 181.242 cm SSM CV FUJ I PACS MV pk dane regurg 546.004 cm/s SSM CV FUJI PACS MV decel slope 195.248 cm/s2 SSM C V FUJI PACS PV pk dane 124.663 cm/s SSM CV FUJ I PACS PV pk grad 5 mmHg SSM CV FU JI PACS IVC size 1.6 cm SSM CV FUJ I PACS Max Age Predicted HR 159 SSM CV FUJI PACS Target HR 135 SSM CV FUJ I PACS [id number] 6.865 cm SSM CV FUJ I PACS [id number] 7.242 cm SSM CV FUJ I PACS LA Size 3.719 cm SSM CV FUJ I PACS LV stroke vol BP 93.956 ml/m2 SSM CV FUJI PACS LVIDs index 1.39 1.3 - 2.1 cm/m2 SSM CV FUJI PACS LV LVIDd index 2.18 2.2 - 3.0 cm/m2 SSM CV FUJI PACS RV-tena basal diam 2.9 2.5 - 4.1 cm SSM CV FUJI PACS EF 2D Bullet 68.658 % SSM CV FUJI PACS IVSs 1.52 cm SSM CV FUJ I PACS LV IVRT 76 ms SSM CV FUJ I PACS MV A duration 121 ms SSM CV FUJI PACS Qp:Qs 1.01 SSM CV FUJ I PACS RV-tena mid diam 2.8 1.9 - 3.5 cm SSM CV FUJI PACS RV-tena longitudinal diam 7.4 5.9 - 8.3 cm SSM CV FUJI PACS RVIDd 3.2 cm SSM CV FUJ I PACS RV RUPAL 7.396 3 - 15 cm2 SSM CV FUJI PACS RV DAE 15.6 cm2 SSM CV FUJ I PACS RV wall thickness 0.5 cm SS M CV FUJI PACS RVOT diam Doppler 2.574 cm SS M CV FUJI PACS RVOT area Doppler 5.20 cm2 SS M CV FUJI PACS RVOT stroke vol 69.24 cm3 SSM CV FUJI PACS RVOT VTI 13.312 cm SSM CV FUJ I PACS RVOT pk dane 0.61 m/s SSM CV F UJI PACS RVOT envelope time 340 ms SSM CV FUJI PACS PV envelope time 292 ms SSM CV FUJI PACS MV EROA PISA 0.14 cm2 SSM CV FUJI PACS MV VC width 0.34 cm SSM CV F UJI PACS MR PISA radius 0.571 cm SSM C V FUJI PACS MV Nyquist dane 0.37 m/s SSM C V FUJI PACS MV mn grad 1 mmHg SSM CV FU JI PACS MV pk grad 5 mmHg SSM CV FU JI PACS MV mn dane 0.52 m/s SSM CV FUJ I PACS MV pk dane 116.967 cm/s SSM CV FUJ I PACS MV area cont eq 3.40 cm2 SSM CV FUJI PACS MV area planimetry 5.26 cm2 SSM CV FUJI PACS MV VTI 20.269 cm SSM CV FUJ I PACS TV mn dane 36.889 m/s SSM CV FUJ I PACS TV pk dane 0.3288918 [id number] cm/s SSM CV FUJI PACS TV mn grad 1 mmHg SSM CV FU JI PACS TV pk grad 2 mmHg SSM CV FU JI PACS TV area PHT 4.11 cm2 SSM CV F UJI PACS TV area continuity 4.10 cm2 SSM CV FUJI PACS TV VTI 16.882 cm SSM CV FUJ I PACS TV PHT 54 ms SSM CV FUJ I PACS TV DT 0.185 ms SSM CV FUJ I PACS RVOT mn grad 1 mmHg SSM CV FUJI PACS RVOT pk grad 1 mmHg SSM CV FUJI PACS PV area cont eq 3.4 cm2 SSM CV FUJI PACS PV mn grad 2 mmHg SSM CV FU JI PACS PV VTI 20.668 cm SSM CV FUJ I PACS PV mn dane 70.679 cm/s SSM CV FUJ I PACS Sinus of Valsalva 2.78 cm SS M CV FUJI PACS ST junction 2.726 cm SSM CV F UJI PACS Posterior dimension 0.0 cm SSM CV FUJI PACS MV annulus diameter 3.2 cm SSM CV FUJI PACS Aortic annulus 2.59 cm SSM C V FUJI PACS LA AREA (4C) 19.063 SSM CV FUJI PACS MV lat S' dane 10.289 cm/s SSM CV FUJI PACS AV envelope time 257 ms SSM CV FUJI PACS LVOT envelope time 264 ms SSM CV FUJI PACS LV EDV A/L A4C 134.665 mL SSM C V FUJI PACS LV Area Tena A2C 38.964 cm2 SSM CV FUJI PACS LV Area Tena A4C 37.445 cm2 SSM CV FUJI PACS TR pk dane 199.0 cm/s SSM CV FUJ I PACS P vein A dane 24.0 cm/s SSM CV FUJI PACS P vein A duration 149 ms SS M CV FUJI PACS P vein S/D ratio 1.56 SSM CV FUJI PACS MV septal a' dane 9.099 cm/s SSM CV FUJI PACS MV lat a' dane 7.044 cm/s SSM CV FUJI PACS MV RVol PISA 25.171 mL SSM CV FUJI PACS MV RF PISA 27 % SSM CV FU JI PACS MV VTI AT ANNULUS PEAK VELOCITY 81.206 cm/s SSM CV FUJI PACS MV VTI AT ANNULUS PEAK GRADIENT 2.638 mmHg SSM CV FUJI PACS MV VTI AT ANNULUS MEAN VELOCITY 39.368 cm/s SSM CV FUJI PACS MV VTI AT ANNULUS MEAN GRADIENT 0.743 mmHg SSM CV FUJI PACS MV VTI AT ANNULUS EJECTION TIME 0.362 s SSM CV FUJI PACS MV regurgitant SV 1 94.38 cm3 SSM CV FUJI PACS TR VTI 41.9 cm SSM CV FUJ I PACS TR pk grad 16 mmHg SSM CV FU JI PACS Aortic arch 2.904 cm SSM CV F UJI PACS IVC size sniff 0.112 cm SSM C V FUJI PACS MV Rvol PISA 25.5 mL SSM CV FUJI PACS AV Rvol cont eq -25.49 mL SSM CV FUJI PACS LA AREA (2C) 18.483 SSM CV FUJI PACS RV FAC 53.00 35 % SSM CV FUJ I PACS Est RA pressure 3.0 mmHg SSM CV FUJI PACS MV RVol cont eq 25.0 mL SSM CV FUJI PACS MV RF cont eq 27.0 % SSM CV FUJI PACS MV EROA cont eq 14.00 cm2 SSM CV FUJI PACS sPAP 19.0 mmHg SSM CV FUJ I PACS RVSP 19.0 mmHg SSM CV FUJ I PACS RAP 3.0 mmHg SSM CV FUJ I PACS TR mn grad 10 mmHg SSM CV FU JI PACS TV area 5.5 cm2 SSM CV FUJ I PACS Anatomical Region Laterality Modality Ultrasound Narrative 05/16/2023 5:42 AM CDT Left Ventricle Left ventricle size is normal. EDV Index BP is 58.3 mL/m2. ESV Index BP is 17.2 mL/m2. Borderline increased wall thickness. LVPWd is 1.11 cm. Mildly increased ventricular mass. Findings consistent with mild concentric hypertrophy. Normal systolic function with a visually estimated EF of 70 - 75%. EF by 2D Malone biplane is 71%. Normal wall motion. Septal motion is normal. Normal diastolic function. Normal mean left atrial pressure. Tissue Doppler velocity is normal. MV peak E velocity is 58.503 cm/s. MV e' lateral velocity is 9.457 cm/s. MV e' septal velocity is 5.793 cm/s. Right Ventricle Right ventricle size is normal. Normal free wall thickness. RV wall thickness is 0.5 cm. Normal wall motion. Normal systolic function. TAPSE is 1.944 cm. Fractional area change (FAC) is 53.00%. Left Atrium Left atrium size is normal. Left atrium volume index is 24.0 mL/m2. The interatrial septum appears normal with no evidence of a shunt by color flow Doppler. No mass present. Right Atrium Right atrium size is normal. RA volume index is 17 mL/m2. No mass present. IVC/SVC IVC diameter is less than or equal to 21 mm and decreases greater than 50% during inspiration; therefore the estimated right atrial pressure is normal (~3 mmHg). SVC was not assessed. Mitral Valve Valve structure is normal. Moderately thickened posterior leaflet. Mildly calcified posterior leaflet. Mildly thickened posterior subvalvular apparatus. Moderately restricted motion of the posterior leaflet. Mild to moderate regurgitation with a centrally directed jet. MV regurgitant volume by continuity equation is 25.0 mL. MV regurgitant fraction by continuity equation is 27.0 %. MV EROA by continuity equation is 14.00 cm2. MV regurgitant volume by PISA is 25.171 mL25.5 mL. MV regurgitant fraction by PISA is 27 %. MV EROA by PISA is 0.14 cm2. Mitral regurgitation vena contracta width is 0.34 cm. No stenosis. MV mean gradient is 1 mmHg. MV area by planimetry is 5.26 cm2. Tricuspid Valve Valve structure is normal. No leaflet thickening. No restricted motion. Trace regurgitation. sPAP is 19.0 mmHg. RVSP is 19.0 mmHg. RAP is 3.0 mmHg. Mean PA pressure of 13 mmHg. PVR 1.65 Wood units. No stenosis. TV mean gradient is 1 mmHg. TV area is 5.5 cm2. Aortic Valve Valve structure is normal. Mildly thickened leaflets. No restricted motion. No regurgitation. No stenosis. AV mean gradient is 3 mmHg. AV peak gradient is 6 mmHg. AV peak velocity is 1.27 m/s. AV area by continuity VTI is 3.3 cm2. AV area by peak velocity is 3.3 cm2. Pulmonic Valve Valve structure is normal. No restricted motion. No regurgitation. No stenosis. PV mean gradient is 2 mmHg. PV area by continuity equation is 3.4 cm2. Main pulmonary artery size is normal. Ascending Aorta Normal sized annulus, sinus of Valsalva (aortic root), ascending aorta and aortic arch. Pericardium The pericardium is normal. No pericardial effusion. Study Details Study quality was adequate. A complete 2D, color Doppler, spectral Doppler, strain and M-mode echocardiogram was performed. The apical, parasternal, subcostal and suprasternal views were obtained. History of CAD, PVD, HTN, Cardiomyopathy with recovered EF Prior Study Prior TTE study available for comparison. Prior study date: 02/07/2022. Changes noted compared to prior study. Changes include: Lower left heart filling pressure, better diastolic function, less MR. Regurgitant volume decreased from 35 to 25 ml and less TR with lower right heart pressure. . Wall Scoring Baseline Score Index: 1.00 The left ventricular wall motion is normal. Procedure Note Joaquin Hart MD - 05/16/2023 ? ? Left??Ventricle: Left ventricle size is normal. EDV Index BP is 58.3mL/m2. ESV Index BP is 17.2 mL/m2. Borderline increased wall thickness.LVPWd is 1.11 cm. Mildly increased ventricular mass. Findings consistentwith mild concentric hypertrophy. Normal systolic function with a visuallyestimated EF of 70 - 75%. EF by 2D Malone biplane is 71%. Normal wallmotion. Septal motion is normal. Normal diastolic function. Normal meanleft atrial pressure. Tissue Doppler velocity is normal. MV peak Evelocity is 58.503 cm/s. MV e' lateral velocity is 9.457 cm/s. MV e'septal velocity is 5.793 cm/s. ? ? Right??Atrium: No mass present. ? ? Right ventricle size is normal. Normal free wall thickness. RV wallthickness is 0.5 cm. Normal wall motion. Normal systolic function. TAPSEis 1.944 cm. Fractional area change (FAC) is 53.00%. ? ? Left atrium size is normal. Left atrium volume index is 24.0 mL/m2. ? ? Estimated right atrial pressure is normal (~3 mmHg). ? ? Valve structure is normal. Moderately thickened posterior leaflet.Mildly calcified posterior leaflet. Mildly thickened posterior subvalvularapparatus. Moderately restricted motion of the posterior leaflet. Mild tomoderate regurgitation with a centrally directed jet. MV regurgitantvolume by continuity equation is 25.0 mL. MV regurgitant fraction bycontinuity equation is 27.0 %. MV EROA by continuity equation is 14.00cm2. MV regurgitant volume by PISA is 25.171 mL25.5 mL. MV regurgitantfraction by PISA is 27 %. MV EROA by PISA is 0.14 cm2. Mitralregurgitation vena contracta width is 0.34 cm. No stenosis. MV meangradient is 1 mmHg. MV area by planimetry is 5.26 cm2. ? ? Trace regurgitation. sPAP is 19.0 mmHg. RVSP is 19.0 mmHg. RAP is 3.0mmHg. Mean PA pressure of 13 mmHg. PVR 1.65 Wood units. No stenosis. TVmean gradient is 1 mmHg. TV area is 5.5 cm2. ? ? No pericardial effusion. Findings consistent with normal LV systolic function, smaller LV, improvednormal LV diastolic function/normal left heart filling pressure, reducedmild to moderate sclerotic MR, smaller LA and normalized right heart.Associated findings as listed. [facility] documented in this encounter Visit Diagnoses Diagnosis Mitral valve insufficiency, unspecified etiology documented in this encounter Care Teams Food Photographer Relationship Specialty Start Date End Date Ian Pollock MD [address] DIV OF [facility] [place] [address] PCP - General 08/21/20 05/29/23 Katina Casiano DO [address] [facility] [address] DIV OF [facility] INTERNAL MEDIC[facility] [place], [place] Resident - PCP Internal Medicine 08/10/22 05/29/23 documented as of this encounter
--- OUTSIDE RECORDS SUMMARY | 2024-10-30 06:48 | XMS_ITS | Encounter Summary ---
Author Organization [facility] Address [address] [facility] [place] [address] Care Team Providers Care Digital Proofing And Platemaker Name Role Phone Ian Pollock MD Primary Care Provider [phone] Katina Casiano DO Unavailable [phone] Reason for Visit * Reason Onset Date Comments Update 05/19/2023 Encounter Details Date Type Department Care Team (Late st Contact Info) Description 05/19/2023 Telephone [facility] - Cardiology [address] [facility] [address] [place] [id number] Erin Monge, ALYX Update Social History Tobacco Use Types Packs/Day Years [...] encounter Miscellaneous Notes * Telephone Encounter - Erin Monge, ALYX - 05/19/2023 2:14 PM CDT Returned pt call. Informed him that he can get his labwork done at [facility]. He is also asking for theresults of his echo. Asking Tracey Ang to let him know about his echo results. Pt had no further questions. Gave call back number. documented in this encounter Plan of Treatment [...] on filedocumented in this encounter Care Teams Digital Proofing And Platemaker Relationship Specialty Start Date End Date Ian Pollock MD [address] DIV [place] [address] PCP - General 08/21/20 05/29/23 Katina Casiano DO [address] DIV OF [facility] INTERNAL MEDICINE [place], [place] Resident - PCP Internal Medicine 08/10/22 05/29/23 documented as of this encounter
--- OUTSIDE RECORDS SUMMARY | 2024-10-30 06:48 | XMS_ITS | Encounter Summary ---
Author Organization [facility] Address [address] [facility] [place] [address] Care Team Providers Care Record Label Internship Name Role Phone Xavi ACOSTA MD, Jameel Gaviria Primary Care Provider + Katina Casiano DO Unavailable [phone] Reason for Referral * Radiology Services (Routine) - Closed Specialty Diagnoses / Procedures Referred By Contac t Referred To Contact Vascular Lab Diagnoses PAD (peripheral artery disease) (HCC) Procedures VAS ARTERIAL ANKLE ARM INDEX VAS ARTERIAL MULTILEVEL Lis Roque MD [facility] [facility] 2[address] DIV [place] [address] [facility] [address] [place] [address] Referral ID Status Reason Start Date Expiration Date Visits Re quested Visits Authorized [id number] Closed 06/07/2023 06/06/2024 1 1 Reason for Visit * Radiology Services (Routine) - Closed Specialty Diagnoses / Procedures Referred By Contac t Referred To Contact Vascular Lab Diagnoses PAD (peripheral artery disease) (HCC) Procedures VAS ARTERIAL ANKLE ARM INDEX VAS ARTERIAL MULTILEVEL Lis Roque MD [address] [facility] 2L DIV [place] [address] [facility] Us [address] [place] [address] Referral ID Status Reason Start Date Expiration Date Visits Re quested Visits Authorized [id number] Closed 06/07/2023 06/06/2024 1 1 Encounter Details Date Type Department Care Team (Latest Contact Info) Description 08/02/2023 8:00 AM CDT - 08/02/2023 11:59 PM CDT Hospital Encounter [facility] [address] [place] [phone] Lis Hennessy MD [address] OF [place] [address] Discharge Disposition: Home or Self Care Social [...] 07/10/2021 lamoTRIgine (LAMICTAL) 100 MG tablet 09/14/2020 latanoprost (Xalatan) 0.005 % ophthalmic solution INSTILL ONE DROP INTO BOTH EYES AT NIGHT 06/20/2023 loratadine (Claritin) 10 MG tabletIndications:[place] allergic [...] Reasons: Erectile Dysfunction 10 tablet 4 01/18/2022 tadalafil (Cialis) 20 MG tabletIndications:Ere ctile Dysfunction Take 1 (one) tablet by mouth once daily as needed (before sex for a better erection) Reasons: Erectile Dysfunction 10 tablet 1 06/29/2023 tiotropium (Spiriva Respimat) 2.5 MCG/ACT inhalerIndications:Pu lmonary emphysema, unspecified emphysema type (HCC),Asthma, unspecified asthma severity, unspecified whether complicated, unspecified whether persistent (HCC) Inhale 2 (two) puffs by mouth once daily 12 g 4 03/14/2023 triamcinolone acetonide (Kenalog) 0.1 % cream Apply to affected area 2 times daily 60 g 04/26/2023 varenicline (Chantix) 1 MG tabletIndications:Smo latha Cessation Therapy Take 1 (one) tablet by mouth 2 times daily Reasons: Treatment to Stop Smoking 60 tablet 2 05/30/2023 ziprasidone (Geodon) 80 MG capsule 07/25/2023 albuterol HFA (Proventil; Ventolin; Proair) 108 (90 Base) MCG/ACT inhalerIndications:Ce ntrilobular emphysema (HCC),Asthma-COPD overlap syndrome (HCC) INHALE 2 PUFFS BY MOUTH EVERY 6 HOURS NEEDED 18 g 3 04/07/2023 10/27/2023 alfuzosin CR 24hr (Uroxatral) 10 MG tablet TAKE 1 TABLET BY MOUTH EVERY DAY 90 tablet 1 03/03/2023 09/18/2023 atorvastatin (Lipitor) 40 MG tablet Take 1 (one) tablet by mouth once daily 90 tablet 3 06/23/2022 12/25/2023 carvedilol (Coreg) 12.5 MG tablet TAKE 1 (ONE) TABLET BY MOUTH 2 TIMES DAILY WITH MORNING AND EVENING MEAL 180 tablet 3 08/02/2022 08/14/2023 eplerenone (Inspra) 25 MG tabletIndications:Hea rt failure with reduced ejection fraction (HCC) Take 1 (one) tablet by mouth once daily 30 tablet 1 06/27/2023 08/29/2023 hydroCHLOROthiazide (Hydrodiuril) 25 MG tablet Take 1 (one) tablet by mouth once daily 90 tablet 3 10/18/2022 11/02/2023 lamoTRIgine (LaMICtal) 100 MG tablet Take 1 (one) tablet by mouth 2 times daily 01/29/2024 omeprazole (PriLOSEC) 40 MG capsuleIndications:Ga stroesophageal reflux disease without esophagitis Take 1 (one) capsule by mouth daily before breakfast 90 capsule 1 06/27/2023 01/29/2024 polyethylene glycol (Golytely) 236 g solution Drink 1/2 of prep at 6pm the night before test. Finish the prep at 6 am the morning of colonoscopy. 4000 mL 09/16/2022 01/29/2024 Symbicort 160-4.5 MCG/ACT inhalerIndications:Ce ntrilobular emphysema (HCC),Asthma-COPD overlap syndrome (HCC) INHALE 2 (TWO) PUFFS BY MOUTH 2 TIMES DAILY 10.2 g 3 04/12/2023 08/29/2023 ziprasidone (GEODON) 40 MG capsule 08/25/2020 01/29/2024 documented as of this encounter Plan of [...] Procedure Name Priority Date/Time Associated Diagnosis Comments VAS ARTERIAL ANKLE ARM INDEX Routine 08/02/2023 9:38 AM CDT PAD (peripheral artery disease) (HCC) documented in this encounter Results * VAS ARTERIAL ANKLE ARM INDEX (08/02/2023 9:38 AM CDT) Anatomical Region Laterality Modality Ankle / Foot, Upper Extremity In travascular Ultrasound 08/02/2023 8:49 AM CDT Narrative Procedure Note Jase Blackman MD - 08/02/2023 Lis Hennessy MD [facility] documented in this encounter Visit Diagnoses Diagnosis PAD (peripheral artery disease) (HCC) Unspecified disorders of arteries and arterioles documented in this encounter Care Teams Record Label Internship Relationship Specialty Start Date End Date Jameel Hurley III, MD [address] [facility] [address] OF [facility] [place] [id number] PCP - General Internal Medicine 06/05/23 08/28/23 Katina Casiano DO [address] OF [facility] INTERNAL MEDICINE [place], [place] Hospitalist 06/05/23 documented as of this encounter
--- OUTSIDE RECORDS SUMMARY | 2024-10-30 06:48 | XMS_ITS | Encounter Summary ---
Author Organization [facility] Health Address [address] [place] [address] Care Team Providers Care Grinding And Polishing Laborer Name Role Phone Ian Pollock MD Primary Care Provider [phone] Katina Casiano DO Unavailable [phone] Reason for Visit * Reason Onset Date Comments Results 02/03/2023 Encounter Details Date Type Department Care Team (Late st Contact Info) Description 02/03/2023 Telephone [facility] Pulmonary, Critical Care and Sleep Medicine [address] [facility] [place] [phone] Adebayo Weeks MD [address] [place] [address] Results Social History Tobacco Use Types Packs/Day Years [...] encounter Miscellaneous Notes * Telephone Encounter - Adebayo Weeks MD - 02/03/2023 12:39 PM CDT I called and spoke with Josafat about the results of his CT chest, including the stability of his lung nodules and the liver and renal cysts. All questions answered. documented in this encounter Plan of Treatment [...] on filedocumented in this encounter Care Teams Grinding And Polishing Laborer Relationship Specialty Start Date End Date Ian Pollock MD [address] [place] [address] PCP - General 08/21/20 05/29/23 Katina Casiano DO [address] DIV OF GEN INTERNAL MEDICINE [place], [place] Resident - PCP Internal Medicine 08/10/22 05/29/23 documented as of this encounter
--- OUTSIDE RECORDS SUMMARY | 2024-10-30 06:48 | XMS_ITS | Encounter Summary ---
Author Organization [facility] Health Address [address] [place] [address] Care Team Providers Care Finance Business Manager Name Role Phone Ian Pollock MD Primary Care Provider [phone] Katina Casiano DO Unavailable [phone] Encounter Details Date Type Department Care Team (Latest Contact Info) Description 03/14/2023 Travel Social History Tobacco Use Types Packs/Day [...] on filedocumented in this encounter Care Teams Finance Business Manager Relationship Specialty Start Date End Date Ian Pollock MD [address] DIV OF [facility] [place] [address] PCP - General 08/21/20 05/29/23 Katina Casiano DO [address] DIV OF [facility] INTERNAL MEDICINE [place], [place] Resident - PCP Internal Medicine 08/10/22 05/29/23 documented as of this encounter
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
--- OUTSIDE RECORDS SUMMARY | 2024-10-30 06:48 | XMS_ITS | Encounter Summary ---
Author Organization [facility] Address [address] [facility] [place] [address] Care Team Providers Care Youth Services Specialist Name Role Phone Ian Pollock MD Primary Care Provider [phone] Katina Casiano DO Unavailable [phone] Reason for Visit * Reason Onset Date Comments MEDICATION REFILL 02/13/2023 Encounter Details Date Type Department Care Team (Late st Contact Info) Description 02/13/2023 Refill [facility] Cardiology [address] [facility] [address] [place] [address] Bridget Lomas MD MEDICATION REFILL Social History Tobacco Use Types [...] on filedocumented in this encounter Care Teams Youth Services Specialist Relationship Specialty Start Date End Date Ian Pollock MD [address] DIV [place] [address] PCP - General 08/21/20 05/29/23 Katina Casiano DO [address] DIV OF [facility] INTERNAL MEDICINE [place], [place] Resident - PCP Internal Medicine 08/10/22 05/29/23 documented as of this encounter
--- OUTSIDE RECORDS SUMMARY | 2024-10-30 06:48 | XMS_ITS | Encounter Summary ---
Author Organization [facility] Address [address] [facility] [place] [address] Care Team Providers Care World Language Teacher Name Role Phone Katina Casiano DO Unavailable [phone] Tracey Ang PA Unavailable [phone] Belkis Angel BANQUET SERVER ON CALL-BUS AND SYS INTEGRATION SENIOR MANAGER Primary Care Provider + Reason for Visit * Reason Onset Date Comments MEDICATION REFILL 01/02/2024 Encounter Details Date Type Department Care Team (Late st Contact Info) Description 01/02/2024 Refill [facility] - Internal Med [address] [facility], [place] [phone] Belkis Angel, BANQUET SERVER ON CALL-BUS AND SYS INTEGRATION SENIOR MANAGER [address] [facility] [address] [place] [address] MEDICATION REFILL Social History Tobacco [...] encounter Miscellaneous Notes * Telephone Encounter - Anya Conway RN - 01/02/2024 2:44 PM DRUM LOADER AND UNLOADER Wai Miramontes 2:15 PM Current Provider name: Belkis Angel ?? Reason for call: MEDICATION REFILL albuterol HFA (Proventil; Ventolin; Proair) 108 (90 Base) MCG/ACT inhaler ?? PHARMACY: [facility] [address] [place] [address]?[phone] ?? Patient Call Back number: [phone] Refill Request Josafat F Umesh Recent Visits Date Type Provider Dept 12/29/22 Office Visit Katina Casiano, DO [facility] 07/29/22 Office Visit Katina Casiano, DO [facility] Showing recent visits within past 540 days with a meds authorizing provider and meeting all other requirements Future Appointments No visits were found meeting these conditions. Showing future appointments within next 150 days with a meds authorizing provider and meeting all other requirements Last Refill: 10-27-23 Allergies: Allergies Allergen Reactions ??? Lisinopril Anaphylaxis and Unknown ??? Pcn [Penicillins] Anaphylaxis ??? Penicillin G Swelling Pended Medication Order: Requested Prescriptions Pending Prescriptions Disp Refills ??? albuterol HFA (Proventil; Ventolin; Proair) 108 (90 Base) MCG/ACT inhaler 8 g 1 Sig: Inhale 2 (two) puffs by mouth every 6 hours as needed LOADER AND UNLOADER documented in this encounter Plan of Treatment Not on file documented as of this encounter Goals Goal Patient Goal Type Associated Problems Recent Progress Patient-Stated? Author Mobility General No Stephanie Gallgeos, RN Note: Expected end date: *10/30/2019 The goal is to maintain or improve your mobility at the optimum level for you. Interventions: documented as of this encounter Visit Diagnoses Diagnosis Centrilobular emphysema (HCC) Other emphysema Asthma-COPD overlap syndrome (HCC) documented in this encounter Care Teams World Language Teacher Relationship Specialty Start Date End Date Belkis Angel, BANQUET SERVER ON CALL-BUS AND SYS INTEGRATION SENIOR MANAGER [address] [facility] 2nd [place] [address] PCP - General Nurse Practitioner 08/29/23 05/05/24 Katina Casiano DO [address] [facility] [address] DIV OF [facility] INTERNAL MEDICINE [place], [place] Hospitalist 06/05/23 Tracey Ang PA [address] [facility] [address] [place] [address] Physician Long Chain Beamer 08/15/23 documented as of this encounter
--- OUTSIDE RECORDS SUMMARY | 2024-10-30 06:48 | XMS_ITS | Encounter Summary ---
Author Organization [facility] Health Address [address] [facility] [place] [address] Care Team Providers Care Tape Making Machine Operator Name Role Phone Xavi ACOSTA MD, Jameel Gaviria Primary Care Provider + Katina Casiano DO Unavailable [phone] Encounter Details Date Type Department Care Team (Late st Contact Info) Description 06/29/2023 Orders Only [facility] - Urology [address] [facility], [place] [address] Bridget Finley LPN Impotence due to erectile [...] No 12/07/2022 documented as of this encounter Progress Notes * Bridget Finley LPN - 06/29/2023 9:40 AM CDT Patient called and stated he cannot afford tadalafil 20 tablets including with the good rx. Requested prescription be reduced documented in this encounter Plan of Treatment Not on file documented as of this encounter Goals Goal Patient Goal Type Associated Problems Recent Progress Patient-Stated? Author Mobility General No Stephanie Gallegos, ALYX Note: Expected end date: *10/30/2019 The goal is to maintain or improve your mobility at the optimum level for you. Interventions: documented as of this encounter Visit Diagnoses Diagnosis Impotence due to erectile dysfunction Impotence of organic origin documented in this encounter Care Teams Tape Making Machine Operator Relationship Specialty Start Date End Date Jameel Hurley III, MD [address] DIV [place] [address] PCP - General Internal Medicine 06/05/23 08/28/23 Katina Casiano DO [address] DIV OF GEN INTERNAL MEDICINE [place], [place] Hospitalist 06/05/23 documented as of this encounter
--- OUTSIDE RECORDS SUMMARY | 2024-10-30 06:48 | XMS_ITS | Encounter Summary ---
Author Organization [facility] Health Address [address] [facility] [place] [address] Care Team Providers Care Hunting And Fishing Guide Name Role Phone Xavi ACOSTA MD, Jameel Gaviria Primary Care Provider + Katina Casiano DO Unavailable [phone] Reason for Visit * Reason Onset Date Comments Medication Issue 06/20/2023 Encounter Details Date Type Department Care Team (Late st Contact Info) Description 06/20/2023 Telephone [facility] - Internal Med [address] [facility], [place] [address] Meenu Joseph MD [address] [facility] [place] [address] Medication Issue Social History Tobacco Use Types Packs/Day Years [...] encounter Miscellaneous Notes * Telephone Encounter - Dayna Pinto - 06/27/2023 11:50 AM CDT Patient calling to get his refills sent to the pharmacy. Dr. Joseph [place] in [place] yet, need attending to sign this patient's prescriptions. * Telephone Encounter - Imelda Hoff LPN - 06/26/2023 10:13 AM CDT Pharmacy requesting refill also of Omeprazole. Will need to be ordered by attending since Dr Joseph is not credentialed for [place] medicaid. * Telephone Encounter - Imelda Hoff LPN - 06/20/2023 1:57 PM CDT Pharmacy received a script for Inspra 25mg written by Dr Joseph. Dr Joseph is not credentialed with [place] medicaid and the pharmacy is unable to fill the script. Pharmacy needs another provider to submit the script. documented in this encounter Plan of Treatment [...] reflux documented in this encounter Care Teams Hunting And Fishing Guide Relationship Specialty Start Date End Date Jameel Hurley III, MD [address] DIV OF [facility] [place] [id number] PCP - General Internal Medicine 06/05/23 08/28/23 Katina Casiano DO [address] DIV OF [facility] INTERNAL MEDICINE [place], [place] Hospitalist 06/05/23 documented as of this encounter
--- OUTSIDE RECORDS SUMMARY | 2024-10-30 06:48 | XMS_ITS | Encounter Summary ---
Author Organization [facility] Health Address [address] [facility] [place] [address] Care Team Providers Care Sheet Metal Journeyman Name Role Phone Ian Pollock MD Primary Care Provider [phone] Katina Casiano DO Unavailable [phone] Reason for Visit * Reason Onset Date Comments Medication Prior Auth Request 03/01/2023 Encounter Details Date Type Department Care Team (Late st Contact Info) Description 03/01/2023 Telephone [facility] - Internal Med [address] [facility], [facility] [address] Katina Casiano, DO [address] [place] [address] Medication Prior Auth Request Social History Tobacco Use Types Packs/Day [...] encounter Miscellaneous Notes * Telephone Encounter - Imelda Hoff LPN - 03/02/2023 6:55 AM CDT PA was approved by insurance. Pharmacy notified. * Telephone Encounter - Imelda Hoff LPN - 03/01/2023 2:37 PM CDT Insurance requires prior auth for Eplerenone. Prior auth request submitted on line at [employer]. Office notes submitted with request Yes. Waiting for insurance response. Cover My Meds cooper:[id number] documented in this encounter Plan of Treatment [...] on filedocumented in this encounter Care Teams Sheet Metal Journeyman Relationship Specialty Start Date End Date Ian Pollock MD [address] [place] [address] PCP - General 08/21/20 05/29/23 Katina Casiano DO [address] OF [facility] INTERNAL MEDICINE [place], [place] Resident - PCP Internal Medicine 08/10/22 05/29/23 documented as of this encounter
--- OUTSIDE RECORDS SUMMARY | 2024-10-30 06:48 | XMS_ITS | Encounter Summary ---
Author Organization [facility] Health Address [address] [facility] [place] [address] Care Team Providers Care Station Gateman Name Role Phone aIn Pollock MD Primary Care Provider [phone] Katina Casiano DO Unavailable [phone] Reason for Visit * Reason Onset Date Comments MEDICATION REFILL 02/27/2023 Encounter Details Date Type Department Care Team (Late st Contact Info) Description 02/27/2023 Refill [facility] General Internal Medicine [address] [place] [address], [place] [phone] Ian Pollock MD [address] [place] [address] OF [facility] [place] [address] MEDICATION REFILL Social History Tobacco Use Types [...] encounter Miscellaneous Notes * Telephone Encounter - Keiko Ambrosio - 02/27/2023 2:23 PM CDT Refill Request Josafat Calvo EDELMIRA: 12/29/22Aug due: 07/13/23Aug scheduled: Visit date not found LRF: 12/29/22 Qty Disp: 30 # of refills: 1 Allergies: Allergies Allergen [...] Heart failure with reduced ejection fraction (HCC) Tobacco abuse Tobacco use disorder documented in this encounter Care Teams Station Gateman Relationship Specialty Start Date End Date Ian Pollock MD [address] [place] [address] PCP - General 08/21/20 05/29/23 Katina Casiano DO [address] INTERNAL MEDICINE [place], [place] Resident - PCP Internal Medicine 08/10/22 05/29/23 documented as of this encounter
--- OUTSIDE RECORDS SUMMARY | 2024-10-30 06:48 | XMS_ITS | Encounter Summary ---
Author Organization [facility] Health Address [address] [facility] [place] [address] Care Team Providers Care Bag Sealer Name Role Phone Xavi ACOSTA MD, Jameel Gaviria Primary Care Provider + Katina Casiano DO Unavailable [phone] Encounter Details Date Type Department Care Team (Late st Contact Info) Description 06/28/2023 Orders Only [facility] - Urology [address] [facility], [place] [id number] Bridget Finley LPN Impotence due to erectile [...] origin documented in this encounter Care Teams Bag Sealer Relationship Specialty Start Date End Date Jameel Hurley III, MD [address] DIV OF [facility] [place] [address] PCP - General Internal Medicine 06/05/23 08/28/23 Katina Casiano DO [address] DIV OF [facility] INTERNAL MEDICINE [place], [place] Hospitalist 06/05/23 documented as of this encounter
--- OUTSIDE RECORDS SUMMARY | 2024-10-30 06:48 | XMS_ITS | Encounter Summary ---
Author Organization [facility] Health Address [address] [place] [address] Care Team Providers Care Daycare Worker Name Role Phone Xavi ACOSTA MD, Jameel Gaviria Primary Care Provider + Katina Casiano DO Unavailable [phone] Encounter Details Date Type Department Care Team (Latest Contact Info) Description 06/07/2023 Travel Social History Tobacco Use Types Packs/Day [...] on filedocumented in this encounter Care Teams Daycare Worker Relationship Specialty Start Date End Date Jameel Hurley III, MD [address] DIV OF [facility] [place] [address] PCP - General Internal Medicine 06/05/23 08/28/23 Katina Casiano DO [address] DIV OF [facility] INTERNAL MEDICINE [place], [place] Hospitalist 06/05/23 documented as of this encounter
--- OUTSIDE RECORDS SUMMARY | 2024-10-30 06:48 | XMS_ITS | Encounter Summary ---
Author Organization [facility] Health Address [address] [place] [address] Care Team Providers Care Angledozer Operator Name Role Phone Xavi ACOSTA MD, Jameel Gaviria Primary Care Provider + Katina Casiano DO Unavailable [phone] Reason for Visit * Reason Onset Date Comments MEDICATION REFILL 06/05/2023 Encounter Details Date Type Department Care Team (Late st Contact Info) Description 06/05/2023 Refill [facility] - Internal Med [address] [facility] [address] Katina Casiano, DO [address] [place] [phone] MEDICATION REFILL Social History Tobacco Use Types [...] Telephone Encounter - Imelda Hoff LPN - 06/05/2023 1:31 PM CDT Refill Request Josafat Calvo Recent Visits Date Type Provider Dept 12/29/22 [...] and meeting all other requirements Last Refill: 5.3.23 Allergies: Allergies Allergen Reactions ??? Lisinopril Anaphylaxis [...] (HCC) documented in this encounter Care Teams Angledozer Operator Relationship Specialty Start Date End Date Jameel Hurley III, MD [address] DIV OF [facility] [place] [address] PCP - General Internal Medicine 06/05/23 08/28/23 Katina Casiano DO [address] DIV OF [facility] INTERNAL MEDICINE [place], [place] Hospitalist 06/05/23 documented as of this encounter
--- OUTSIDE RECORDS SUMMARY | 2024-10-30 06:48 | XMS_ITS | Encounter Summary ---
Author Organization [facility] Health Address [address] [facility] [place] [address] Care Team Providers Care Property Management Bookkeeper Name Role Phone Ian Pollock MD Primary Care Provider [phone] Katina Casiano DO Unavailable [phone] Reason for Visit * Reason Onset Date Comments Results 03/31/2023 Encounter Details Date Type Department Care Team (Late st Contact Info) Description 03/31/2023 Telephone [facility] - Pulmonology [address] [facility] [place] [phone] Adebayo Weeks MD [address] [place] [address] Results Social History Tobacco Use Types Packs/Day [...] Telephone Encounter - Adebayo Weeks MD - 03/31/2023 8:23 AM CDT I called and spoke with Josafat regarding his PFT results. All questions answered. documented in this encounter [...] on filedocumented in this encounter Care Teams Property Management Bookkeeper Relationship Specialty Start Date End Date Ian Pollock MD [address] DIV OF [facility] [place] [address] PCP - General 08/21/20 05/29/23 Katina Casiano DO [address] DIV OF [facility] INTERNAL MEDICINE [place], [place] Resident - PCP Internal Medicine 08/10/22 05/29/23 documented as of this encounter
--- OUTSIDE RECORDS SUMMARY | 2024-10-30 06:48 | XMS_ITS | Encounter Summary ---
Author Organization [facility] Address [address] [facility] [place] [address] Care Team Providers Care Commercial Airplane Pilot Name Role Phone Xavi ACOSTA MD, Jameel Gaviria Primary Care Provider + Katina Casiano DO Unavailable [phone] Reason for Visit * Reason Onset Date Comments MEDICATION REFILL 08/14/2023 Encounter Details Date Type Department Care Team (Late st Contact Info) Description 08/14/2023 Refill [facility] Cardiology [address] [facility] [address] [place] [phone] Eli Mendez RN MEDICATION REFILL Social History Tobacco Use Types [...] encounter Miscellaneous Notes * Telephone Encounter - Eli Mendez RN - 08/14/2023 3:43 PM CDT Refill Request Josafat Calvo EDELMIRA: 05/30/23 NOV due: 6 months NOV scheduled: Visit date not found LRF: 08/02/22 Qty Disp: 180 # of refills: 3 Allergies: Allergies Allergen Reactions ??? Lisinopril Anaphylaxis and Unknown ??? Pcn [Penicillins] Anaphylaxis ??? Penicillin G Swelling Pended Medication Order: Requested Prescriptions Pending Prescriptions Disp Refills ??? carvedilol (Coreg) 12.5 MG tablet 180 tablet 3 Sig: Take 1 (one) tablet by mouth 2 times daily with morning and evening meal documented in this encounter Plan of Treatment [...] on filedocumented in this encounter Care Teams Commercial Airplane Pilot Relationship Specialty Start Date End Date Jameel Hurley III, MD [address] OF [facility] [place] [address] PCP - General Internal Medicine 06/05/23 08/28/23 Katina Casiano DO [address] [facility] 2L [facility] OF GEN INTERNAL MEDICINE [place], [place] Hospitalist 06/05/23 documented as of this encounter
--- OUTSIDE RECORDS SUMMARY | 2024-10-30 06:48 | XMS_ITS | Encounter Summary ---
Author Organization [facility] Health Address [address] [facility] [place] [address] Care Team Providers Care Loom Inspector Name Role Phone Katina Casiano DO Unavailable [phone] Tracey Ang PA Unavailable [phone] Belkis Angel DELINQUENT TAX COLLECTION ASSISTANT-TRAINING PROGRAM DEVELOPER Primary Care Provider + Reason for Visit * Reason Onset Date Comments Reschedule Appointment 01/04/2024 The Acute care clinic has closed its AM schedule on 01/15/24 so I contacted the patient to reschedule to one of the afternoon slots. I left a voicemail and [employer] message to call [phone] to reschedule the appoinment. 01/04/24 JLM Encounter Details Date Type Department Care Team (Late st Contact Info) Description 01/04/2024 Telephone [facility] - Centralized Scheduling [address] [place] [phone] Belkis Angel, DELINQUENT TAX COLLECTION ASSISTANT-TRAINING PROGRAM DEVELOPER [address] [address] Reschedule Appointment (The Acute care clinic has closed its AM schedule on 01/15/24 so I contacted the patient to reschedule to one of the afternoon slots. I left a voicemail and [employer] message to call [phone] to reschedule the appoinment. 01/04/24 JLM) Social History Tobacco Use Types Packs/Day Years [...] encounter Miscellaneous Notes * Telephone Encounter - Aren Roman - 01/04/2024 12:32 PM CST The Acute care clinic has closed its AM schedule on 01/15/24 so I contacted the patient to reschedule to one of the afternoon slots. I left a voicemail and [employer] message to call [phone] to reschedule the appoinment. 01/04/24 JLM PING CLERK documented in this encounter Plan of Treatment [...] on filedocumented in this encounter Care Teams Loom Inspector Relationship Specialty Start Date End Date Belkis Angel, RUSS-TRAINING PROGRAM DEVELOPER [address] [facility] [address] [place] [address] PCP - General Nurse Practitioner 08/29/23 05/05/24 Katina Casiano DO [address] [facility] 2[address] [facility] INTERNAL MEDICINE [place], [place] Hospitalist 06/05/23 Tracey Ang PA [address] [facility] [address] [place] [address] Physician Photographic Specialist 08/15/23 documented as of this encounter
--- OUTSIDE RECORDS SUMMARY | 2024-10-30 06:48 | XMS_ITS | Encounter Summary ---
Author Organization [facility] Address [address] [facility] [place] [address] Care Team Providers Care Electrophysiology Scientist Name Role Phone Unavailable Primary Care Provider Unavailabl e Reason for Referral * Evaluate & Treat (Urgent) - Closed Specialty Diagnoses / Procedures Referred By Contac t Referred To Contact Vascular Surgery Diagnoses Pain of lower extremity, unspecified laterality PAD (peripheral artery disease) (HCC) John Nelson MD [address] [place] [address] Referral ID Status Reason Start Date Expiration Date V isits Requested Visits Authorized [id number] Closed Specialty Services Required 05/30/2023 05/29/2024 1 1 Encounter Details Date Type Department Care Team (Late st Contact Info) Description 05/30/2023 9:30 AM CDT Video Visit [facility] - Cardiology [address] [phone] John Nelson MD [facility] [address] [id number] PAD (peripheral artery disease) (HCC) ; Pain of lower extremity, unspecified laterality; Nonrheumatic mitral valve regurgitation; Heart failure with reduced ejection fraction (HCC) Social History Tobacco Use Types Packs/Day [...] Sign Reading Time Taken Comments Blood Pressure - - Pulse - - Temperature - - Respiratory Rate - - Oxygen Saturation - - Inhaled Oxygen Concentration - - Weight 103.9 kg (229 lb) 05/30/2023 9:06 AM CDT Height 175.3 cm (5' 9 ) 05/30/2023 9:06 AM CDT Body Mass Index 33.82 05/30/2023 9:06 AM CDT documented in this encounter Functional [...] this encounter Patient Instructions * Patient Instructions* John Nelson MD - 05/30/2023 10:45 AM CDT We will make a referral to vascular surgery for consultation regarding leg pain and possible arterial blockage. I do not think you need to see Dr. Rutherford regarding your mitral valve. The leakage is only in the mild to moderate range and no procedure is warranted. Strongly advise you to quit cigarette smoking. it is contributing to the blocked artery in the leg. follow up ila mcgarry in 6 months documented in this encounter Progress Notes * John Nelson MD - 05/30/2023 10:35 AM CDT Telemedicine Note Today's visit was conducted virtually. The patient has given verbal consent to have today's visit conducted virtually and understands the risks, benefits and alternatives associated with telemedicine. Patient location: Home This encounter was performed using: audio Reason for not using video for visit: patient does not have the technology Total time spent on visit on date of encounter is: 25 minutes with 11 minutes spent in medical discussion. Billing Guide Assessment & Plan Josafat is a 62 year old male who has completed a telemedicine encounter regarding: PAD (peripheral artery disease) Worsening of ? claudication/leg pain with abnormal LYNNETTE. Will refer to vascular surgery. strongly advised cigarette cessation again Heart failure with reduced ejection fraction HF with EF recovered to normal. Continue current treatment. Nonrheumatic mitral valve regurgitation Clearly mild to moderate and stable. No indication for surgical or mitral clip. patient reassured Subjective WE are seeing patient today for CMP, CAD Denies chest pain or dyspnea. He is primarily concerned ongoing leg pain. evaluation last year showed abnormal LYNNETTE indices on left and he is asking for another ultrasound to check for clot in the leg. Has been taking statin and is scheduled for lipid testing on this. Recent TTE showing normal LVEF , mild to moderate MR Objective General: no acute distress normal voice respirations normal skin color normal appropriate affect, normal cognition John Nelson MD documented in this encounter Plan of Treatment Scheduled Referrals Name Type Priority Associated Diagnoses Orde r Schedule Ref to Vascular Surg - [facility] Outpatient Referral Routine Pain of lower extremity, unspecified laterality PAD (peripheral artery disease) (HCC) 1 Occurrences starting 05/30/2023 until 05/30/2024 documented as of this encounter Goals Goal Patient Goal Type Associated Problems Recent Progress Patient-Stated? Author Mobility General No Stephanie Gallegos, RN Note: Expected end date: *10/30/2019 The goal is to maintain or improve your mobility at the optimum level for you. Interventions: documented as of this encounter Visit Diagnoses Diagnosis PAD (peripheral artery disease) (HCC)- Primary Unspecified disorders of arteries and arterioles Pain of lower extremity, unspecified laterality Nonrheumatic mitral valve regurgitation Heart failure with reduced ejection fraction (HCC) * Assessment & Plan Note - John Nelson MD - 05/30/2023 3:05 PM CDT Associated Problem(s): Nonrheumatic mitral valve regurgitation Clearly mild to moderate and stable. No indication for surgical or mitral clip. patient reassured * Assessment & Plan Note - John Nelson MD - 05/30/2023 3:04 PM CDT Associated Problem(s): Heart failure with reduced ejection fraction (HCC) HF with EF recovered to normal. Continue current treatment. * Assessment & Plan Note - John Nelson MD - 05/30/2023 3:03 PM CDT Associated Problem(s): PAD (peripheral artery disease) (HCC) Worsening of ? claudication/leg pain with abnormal LYNNETTE. Will refer to vascular surgery. strongly advised cigarette cessation again documented in this encounter
--- OUTSIDE RECORDS SUMMARY | 2024-10-30 06:48 | XMS_ITS | Encounter Summary ---
Author Organization [facility] Health Address [address] [facility] [place] [address] Care Team Providers Care Cork Tipper Name Role Phone Ian Pollock MD Primary Care Provider [phone] Katina Casiano DO Unavailable [phone] Reason for Visit * Reason Comments Refill Request Encounter Details Date Type Department Care Team (Late st Contact Info) Description 04/12/2023 Refill [facility] [address] [place] [address] Adebayo Weeks MD [address] [place] [address] Refill Request Social History Tobacco [...] Telephone Encounter - Tere Antunez RN - 04/12/2023 7:58 AM CDT Refill Request EDELMIRA: 12/29/2022 NOV scheduled: 07/25/2023 LRF: 12/14/2022 Qty Disp: 10.2g # of refills: 3 Allergies: Allergies Allergen Reactions ??? Lisinopril Anaphylaxis and Unknown ??? Pcn [Penicillins] Anaphylaxis ??? Penicillin G Swelling Pended Medication Order: Requested Prescriptions Pending Prescriptions Disp Refills ??? Symbicort 160-4.5 MCG/ACT inhaler [Pharmacy Med Name: SYMBICORT 160-4.5 MCG INHALER] 3 Sig: INHALE 2 (TWO) PUFFS BY MOUTH 2 TIMES DAILY documented in this encounter Plan of Treatment [...] (HCC) documented in this encounter Care Teams Cork Tipper Relationship Specialty Start Date End Date Ian Pollock MD [address] [facility] 2L [facility] OF [facility] [place] [address] PCP - General 08/21/20 05/29/23 Katina Casiano DO [address] OF [facility] INTERNAL MEDICINE [place], [place] Resident - PCP Internal Medicine 08/10/22 05/29/23 documented as of this encounter
--- OUTSIDE RECORDS SUMMARY | 2024-10-30 06:48 | XMS_ITS | Encounter Summary ---
Author Organization [facility] Health Address [address] [facility] [place] [address] Care Team Providers Care Laser Beam Machine Operator Name Role Phone Ian Pollock MD Primary Care Provider [phone] Katnia Casiano DO Unavailable [phone] Reason for Visit * Reason Onset Date Comments General 01/20/2023 Encounter Details Date Type Department Care Team (Late st Contact Info) Description 01/20/2023 Telephone [facility] General Internal Medicine [address] [facility] [place] [address] Katina Casiano, [address] [place] [address] General Social History Tobacco Use Types Packs/Day Years [...] * Telephone Encounter - Dayna Pinto - 01/20/2023 1:03 PM CDT Patient called to notify that Medicab request paperwork was faxed for annual renewal. Placed in 's box for signature. documented in this encounter Plan of Treatment [...] on filedocumented in this encounter Care Teams Laser Beam Machine Operator Relationship Specialty Start Date End Date Ian Pollock MD [address] [place] [address] PCP - General 08/21/20 05/29/23 Katina Casiano DO [address] DIV OF [facility] INTERNAL MEDICINE [place], [place] Resident - PCP Internal Medicine 08/10/22 05/29/23 documented as of this encounter
--- OUTSIDE RECORDS SUMMARY | 2024-10-30 06:48 | XMS_ITS | Encounter Summary ---
Author Organization [facility] Health Address [address] [facility] [place] [address] Care Team Providers Care Promotions Representative Name Role Phone Ian Pollock MD Primary Care Provider [phone] Katina Casiano DO Unavailable [phone] Reason for Visit * Reason Onset Date Comments Results 02/01/2023 Encounter Details Date Type Department Care Team (Late st Contact Info) Description 02/01/2023 Telephone [facility] Pulmonary, Critical Care and Sleep Medicine [address] [facility] [place] [phone] Adebayo Weeks MD [address] [place] [address] Results Social History Tobacco Use Types Packs/Day [...] encounter Miscellaneous Notes * Telephone Encounter - Ivan Madsen - 02/01/2023 9:39 AM CDT Patient calling for the results of CT scan. Yuval c/b #[phone] Ivan Madsen Procurement Inspector III Pulmonary Critical Care & Sleep Disorders documented in this encounter Plan of Treatment [...] on filedocumented in this encounter Care Teams Promotions Representative Relationship Specialty Start Date End Date Ian Pollock MD [address] DIV OF [place] [address] PCP - General 08/21/20 05/29/23 Katina Casiano DO [address] DIV OF GEN INTERNAL MEDICINE [place], [place] Resident - PCP Internal Medicine 08/10/22 05/29/23 documented as of this encounter
--- OUTSIDE RECORDS SUMMARY | 2024-10-30 06:48 | XMS_ITS | Encounter Summary ---
Author Organization [facility] Health Address [address] [facility] [place] [address] Care Team Providers Care Wound/Ostomy Nurse Name Role Phone Katina Casiano DO Unavailable [phone] Tracey Ang PA Unavailable [phone] Belkis Angel TECHNICAL SYSTEMS ARCHITECT-CARD CLOTHIER Primary Care Provider + Encounter Details Date Type Department Care Team (Latest Contact Info) Description 10/27/2023 Travel Social History Tobacco Use Types Packs/Day [...] on filedocumented in this encounter Care Teams Wound/Ostomy Nurse Relationship Specialty Start Date End Date Belkis Angel, TECHNICAL SYSTEMS ARCHITECT-CARD CLOTHIER [address] [facility] 2nd [place] [address] PCP - General Nurse Practitioner 08/29/23 05/05/24 Katina Casiano DO [address] [facility] 2L DIV OF [facility] INTERNAL MEDICINE [place], [place] Hospitalist 06/05/23 Tracey Ang PA [address] [facility] [address] [place] [address] Physician Hand Brim Ironer 08/15/23 documented as of this encounter
--- OUTSIDE RECORDS SUMMARY | 2024-10-30 06:48 | XMS_ITS | Encounter Summary ---
Author Organization [facility] Health Address [address] [facility] [place] [address] Care Team Providers Care Security Agent Name Role Phone Ian Pollock MD Primary Care Provider [phone] Katina Casiano DO Unavailable [phone] Encounter Details Date Type Department Care Team (Latest Contact Info) Description 04/13/2023 Travel Social History Tobacco Use Types Packs/Day [...] on file Sexual Orientation Not on file COVID-19 Exposure Response Date Recorded In the last 10 days, have yo u been in contact with someone who was confirmed or suspected to have Coronavirus/COVID-19? No / Unsure 04/13/2023 8:41 AM CDT documented as of this encounter Functional Status [...] on filedocumented in this encounter Care Teams Security Agent Relationship Specialty Start Date End Date Ian Pollock MD [address] DIV [place] [address] PCP - General 08/21/20 05/29/23 Katina Casiano DO [address] DIV OF [facility] INTERNAL MEDICINE [place], [place] Resident - PCP Internal Medicine 08/10/22 05/29/23 documented as of this encounter
--- OUTSIDE RECORDS SUMMARY | 2024-10-30 06:48 | XMS_ITS | Encounter Summary ---
Author Organization [facility] Address [address] [facility] [place] [address] Care Team Providers Care Cook Short Order Name Role Phone Katina Casiano DO Unavailable [phone] Tracey Ang PA Unavailable [phone] Belkis Angel MEDICAL HEALTH RESEARCHER-GRAVITY PROSPECTOR Primary Care Provider + Encounter Details Date Type Department Care Team (Late st Contact Info) Description 11/10/2023 Orders Only [facility] - Orthopedics [address] [facility], [place] [address] Natalie Jackman MD [facility] [facility] [address]L Door 1&2 [place] [address] Greater trochanteric bursitis of left hip ; Left hip pain Social History Tobacco Use Types Packs/Day Years [...] Type Priority Associated Diagnoses Orde r Schedule XR HIP LEFT 2VW OR MORE Imaging Routine Left hip pain 1 Occurrences starting 11/10/2023 until 11/10/2024 documented as of this encounter Goals Goal Patient Goal Type Associated Problems Recent Progress Patient-Stated? Author Mobility General No Stephanie Gallegos, RN Note: Expected end date: *10/30/2019 The goal is to maintain or improve your mobility at the optimum level for you. Interventions: documented as of this encounter Visit Diagnoses Diagnosis Greater trochanteric bursitis of left hip- Primary Enthesopathy of hip region Left hip pain Pain in joint, pelvic region and thigh documented in this encounter Care Teams Cook Short Order Relationship Specialty Start Date End Date Belkis Angel, MEDICAL HEALTH RESEARCHER-GRAVITY PROSPECTOR [address] [facility] 2nd [place] [address] PCP - General Nurse Practitioner 08/29/23 05/05/24 Katina Casiano DO [address] [facility] 2L DIV OF [facility] INTERNAL MEDICINE [place], [place] Hospitalist 06/05/23 Tracey Ang PA [address] [facility] [address] [place] [address] Physician Lye Machine Operator 08/15/23 documented as of this encounter
--- OUTSIDE RECORDS SUMMARY | 2024-10-30 06:48 | XMS_ITS | Encounter Summary ---
Author Organization [facility] Address [address] [facility] [place] [address] Care Team Providers Care Enamel Drier Name Role Phone Katina Casiano DO Unavailable [phone] Tracey Ang PA Unavailable [phone] Belkis Angel STAFF DEVELOPER-HOTEL ENGINEER Primary Care Provider + Encounter Details Date Type Department Care Team (Latest Contact Info) Description 01/02/2024 Travel Social History Tobacco Use Types Packs/Day [...] on filedocumented in this encounter Care Teams Enamel Drier Relationship Specialty Start Date End Date Belkis Angel, STAFF DEVELOPER-HOTEL ENGINEER [address] [facility] 2nd [place] [address] PCP - General Nurse Practitioner 08/29/23 05/05/24 Katina Casiano DO [address] [facility] 2L DIV OF [facility] INTERNAL MEDICINE [place], [place] Hospitalist 06/05/23 Tracey Ang PA [address] [facility] [address] [place] [address] Physician Professor Of Psychology 08/15/23 documented as of this encounter
--- OUTSIDE RECORDS SUMMARY | 2024-10-30 06:48 | XMS_ITS | Encounter Summary ---
Author Organization [facility] Address [address] [facility] [address] Care Team Providers Care Submarine Element Coordinator Name Role Phone Katina Casiano DO Unavailable [phone] Tracey Ang PA Unavailable [phone] Belkis Angel INTER COM INSTALLER-INTERPRETER Primary Care Provider + Reason for Visit * Reason Comments Refill Request Encounter Details Date Type Department Care Team (Late st Contact Info) Description 11/02/2023 Refill [facility] - Cardiology [address] [address] John Nelson MD [address] [id number] Refill Request Social History Tobacco Use Types [...] Telephone Encounter - Eli Mendez RN - 11/02/2023 8:43 AM CST Refill Request Josafat Branch Umesh EDELMIRA: 05/30/23 NOV due: 6 months NOV scheduled: Visit date not found LRF: 10/18/22 Qty Disp: 90 # of refills: 3 Allergies: Allergies Allergen Reactions ??? Lisinopril Anaphylaxis and Unknown ??? Pcn [Penicillins] Anaphylaxis ??? Penicillin G Swelling Pended Medication Order: Requested Prescriptions Pending Prescriptions Disp Refills ??? hydroCHLOROthiazide (Hydrodiuril) 25 MG tablet [Pharmacy Med Name: HYDROCHLOROTHIAZIDE 25 MG TAB] 90 tablet 3 Sig: TAKE 1 TABLET BY MOUTH EVERY DAY A CRITIC documented in this encounter Plan of Treatment [...] on filedocumented in this encounter Care Teams Submarine Element Coordinator Relationship Specialty Start Date End Date Belkis Angel, INTER COM INSTALLER-INTERPRETER [address] [address] PCP - General Nurse Practitioner 08/29/23 05/05/24 Katina Casiano DO [address] OF [facility] INTERNAL MEDICINE [place], [place] Hospitalist 06/05/23 Tracey Ang PA [address] [facility] [address] [place] [address] Physician Welding Machine Operator Electro Gas 08/15/23 documented as of this encounter
--- OUTSIDE RECORDS SUMMARY | 2024-10-30 06:48 | XMS_ITS | Encounter Summary ---
Author Organization [facility] Address [address] [facility] [place] [address] Care Team Providers Care Cyber Analyst Name Role Phone Xavi ACOSTA MD, Jameel Gaviria Primary Care Provider + Katina Casiano DO Unavailable [phone] Encounter Details Date Type Department Care Team (Latest Contact Info) Description 07/04/2023 Travel Social History Tobacco Use Types Packs/Day [...] on filedocumented in this encounter Care Teams Cyber Analyst Relationship Specialty Start Date End Date Jameel Hurley III, MD [address] 2[address] DIV OF [facility] [place] [address] PCP - General Internal Medicine 06/05/23 08/28/23 Katina Casiano DO [address] DIV OF [facility] INTERNAL MEDICINE [place], [place] Hospitalist 06/05/23 documented as of this encounter
--- OUTSIDE RECORDS SUMMARY | 2024-10-30 06:48 | XMS_ITS | Encounter Summary ---
Author Organization [facility] Address [address] [facility] [place] [address] Care Team Providers Care Cyanide Case Hardener Name Role Phone Xavi ACOSTA MD, Jameel Gaviria Primary Care Provider + Katina Casiano DO Unavailable [phone] Encounter Details Date Type Department Care Team (Latest Contact Info) Description 08/08/2023 Travel Social History Tobacco Use Types Packs/Day [...] on filedocumented in this encounter Care Teams Cyanide Case Hardener Relationship Specialty Start Date End Date Jameel Hurley III, MD [address] 2[address] DIV OF [facility] [place] [address] PCP - General Internal Medicine 06/05/23 08/28/23 Katina Casiano DO [address] DIV OF [facility] INTERNAL MEDICINE [place], [place] Hospitalist 06/05/23 documented as of this encounter
--- OUTSIDE RECORDS SUMMARY | 2024-10-30 06:48 | XMS_ITS | Encounter Summary ---
Author Organization [facility] Address [address] [facility] [place] [address] Care Team Providers Care Security Operations Manager Name Role Phone Ian Pollock MD Primary Care Provider [phone] Katina Casiano DO Unavailable [phone] Reason for Visit * Reason Comments Refill Request Encounter Details Date Type Department Care Team (Late st Contact Info) Description 03/24/2023 Refill [facility] [address] [place] [address] Adebayo Weeks MD [address] [place] [address] Refill Request Social History Tobacco [...] (HCC) documented in this encounter Care Teams Security Operations Manager Relationship Specialty Start Date End Date Ian Pollock MD [address] 2[address] DIV OF [place] [address] PCP - General 08/21/20 05/29/23 Katina Casiano DO [address] DIV OF [facility] INTERNAL MEDICINE [place], [place] Resident - PCP Internal Medicine 08/10/22 05/29/23 documented as of this encounter
--- OUTSIDE RECORDS SUMMARY | 2024-10-30 06:48 | XMS_ITS | Encounter Summary ---
Author Organization [facility] Address [address] [facility] [place] [address] Care Team Providers Care Cook Seafood Name Role Phone Katina Casiano DO Unavailable [phone] Tracey Ang PA Unavailable [phone] Belkis Angel FRONT DESK MANAGER-PLANISHER Primary Care Provider + Reason for Visit * Reason Onset Date Comments MEDICATION REFILL 01/02/2024 Encounter Details Date Type Department Care Team (Late st Contact Info) Description 01/02/2024 Telephone [facility] - Internal Med [address] [facility], [facility] [place] [address] Belkis Angel APRN-PLANISHER [address] [address] MEDICATION REFILL Social History Tobacco Use [...] encounter Miscellaneous Notes * Telephone Encounter - Kulwinder China - 01/02/2024 2:15 PM CST Current Provider name: Belkis Angel Reason for call: MEDICATION REFILL albuterol HFA (Proventil; Ventolin; Proair) 108 (90 Base) MCG/ACT inhaler PHARMACY: [facility] [id number] [place] [address] [phone] Patient Call Back number: [phone] ERS SALESPERSON documented in this encounter Plan of Treatment [...] on filedocumented in this encounter Care Teams Cook Seafood Relationship Specialty Start Date End Date Belkis Angel, FRONT DESK MANAGER-PLANISHER [address] [address] PCP - General Nurse Practitioner 08/29/23 05/05/24 Katina Casiano DO [address] OF [facility] INTERNAL MEDICINE [place], [place] Hospitalist 06/05/23 Tracey Ang PA [address] [facility] [address] [place] [address] Physician Student Nurse 08/15/23 documented as of this encounter
--- OUTSIDE RECORDS SUMMARY | 2024-10-30 06:48 | XMS_ITS | Encounter Summary ---
Author Organization [facility] Address [address] [facility] [place] [address] Care Team Providers Care Pharm Tech Name Role Phone Xavi ACOSTA MD, Jameel Gaviria Primary Care Provider + Katina Casiano DO Unavailable [phone] Reason for Visit * Reason Comments Refill Request Encounter Details Date Type Department Care Team (Late st Contact Info) Description 06/20/2023 Refill [facility] - Cardiology [address] [facility] [address] [place] [address] Bridget Lomas MD Refill Request Social History Tobacco Use Types [...] on filedocumented in this encounter Care Teams Pharm Tech Relationship Specialty Start Date End Date Jameel Hurley III, MD [address] 2[address] DIV OF [facility] [place] [address] PCP - General Internal Medicine 06/05/23 08/28/23 Katina Casiano DO [address] DIV OF [facility] INTERNAL MEDICINE [place], [place] Hospitalist 06/05/23 documented as of this encounter
--- OUTSIDE RECORDS SUMMARY | 2024-10-30 06:48 | XMS_ITS | Encounter Summary ---
Author Organization [facility] Address [address] [facility] [place] [address] Care Team Providers Care Hand Gluer And Slicer Name Role Phone Katina Casiano DO Unavailable [phone] Tracey Ang PA Unavailable [phone] Belkis Angel CAPTAIN OF GUARDS-CEPHALOMETRIC TRACER Primary Care Provider + Reason for Visit * Reason Comments Refill Request Encounter Details Date Type Department Care Team (Late st Contact Info) Description 09/17/2023 Refill [facility] - Urology [address] [place] [address], [place] [address] Florence Ojeda, CAPTAIN OF GUARDS-CEPHALOMETRIC TRACER [address] [place] [address] [place] [address] Refill Request Social History Tobacco Use Types [...] on filedocumented in this encounter Care Teams Hand Gluer And Slicer Relationship Specialty Start Date End Date Belkis Angel, CAPTAIN OF GUARDS-CEPHALOMETRIC TRACER [address] [facility] 2nd [place] [address] PCP - General Nurse Practitioner 08/29/23 05/05/24 Katina Casiano DO [address] [facility] 2L DIV OF [facility] INTERNAL MEDICINE [place], [place] Hospitalist 06/05/23 Tracey Ang PA [address] [facility] [address] [place] [address] Physician Warehouse Forklift Operator 08/15/23 documented as of this encounter
--- OUTSIDE RECORDS SUMMARY | 2024-10-30 06:48 | XMS_ITS | Encounter Summary ---
Author Organization [facility] Address [address] [facility] [place] [address] Care Team Providers Care Chemical Mixer Name Role Phone Katina Casiano DO Unavailable [phone] Tracey Ang PA Unavailable [phone] Belkis Angel CLINICAL ENGINEER-LEGAL ACTIVITY ADJUDICATOR Primary Care Provider + Reason for Visit * Reason Onset Date Comments MEDICATION REFILL 08/29/2023 Encounter Details Date Type Department Care Team (Late st Contact Info) Description 08/29/2023 Refill [facility] - Internal Med [address] [facility], [place] [address] Belkis Angel APRN-LEGAL ACTIVITY ADJUDICATOR [address] [facility] 2nd [place] [address] MEDICATION REFILL Social History Tobacco [...] Encounter - Tere Antunez RN - 08/29/2023 11:03 AM CDT Refill Request EDELMIRA: 12/29/2022 NOV scheduled: 09/19/2023 LRF: 04/12/2023 Qty Disp: 10.2g # of refills: 3 Allergies: Allergies Allergen Reactions ??? Lisinopril Anaphylaxis and Unknown ??? Pcn [Penicillins] Anaphylaxis ??? Penicillin G Swelling Pended Medication Order: Requested Prescriptions Pending Prescriptions Disp Refills ??? Symbicort 160-4.5 MCG/ACT inhaler 10.2 g 3 Sig: Inhale 2 (two) puffs by mouth documented in this encounter Plan of Treatment [...] (HCC) documented in this encounter Care Teams Chemical Mixer Relationship Specialty Start Date End Date Belkis Angel, CLINICAL ENGINEER-LEGAL ACTIVITY ADJUDICATOR [address] [facility] 2nd [place] [address] PCP - General Nurse Practitioner 08/29/23 05/05/24 Katina Casiano DO [address] [facility] 2L [facility] INTER[facility]ICINE [place], [place] Hospitalist 06/05/23 Tracey Ang PA [address] [facility] [address] [place] [address] Physician Medical Claims Examiner 08/15/23 documented as of this encounter
--- OUTSIDE RECORDS SUMMARY | 2024-10-30 06:48 | XMS_ITS | Encounter Summary ---
Author Organization [facility] Address [address] [facility] [place] [address] Care Team Providers Care Architect Naval Name Role Phone Katina Casiano DO Unavailable [phone] Tracey Ang PA Unavailable [phone] Beliks Angel MAT TESTER-CURTAIN ROLLER ASSEMBLER Primary Care Provider + Encounter Details Date Type Department Care Team (Latest Contact Info) Description 10/18/2023 Travel Social History Tobacco Use Types Packs/Day [...] on filedocumented in this encounter Care Teams Architect Naval Relationship Specialty Start Date End Date Belkis Angel, MAT TESTER-CURTAIN ROLLER ASSEMBLER [address] [facility] 2nd [place] [address] PCP - General Nurse Practitioner 08/29/23 05/05/24 Katina Casiano DO [address] [facility] 2L DIV OF [facility] INTERNAL MEDICINE [place], [place] Hospitalist 06/05/23 Tracey Ang PA [address] [facility] [address] [place] [address] Physician Ocean Freight Manager 08/15/23 documented as of this encounter
--- OUTSIDE RECORDS SUMMARY | 2024-10-30 06:48 | XMS_ITS | Encounter Summary ---
Author Organization [facility] Address [address] [place] [address] Care Team Providers Care Portable Irrigation Operator Name Role Phone Xavi ACOSTA MD, Jameel Gaviria Primary Care Provider + Katina Casiano DO Unavailable [phone] Encounter Details Date Type Department Care Team (Latest Contact Info) Description 08/02/2023 Travel Social History Tobacco Use Types Packs/Day [...] on filedocumented in this encounter Care Teams Portable Irrigation Operator Relationship Specialty Start Date End Date Jameel Hurley III, MD [address] 2[address] DIV OF [facility] [place] [place] [address] PCP - General Internal Medicine 06/05/23 08/28/23 Katina Casiano DO [address] DIV OF [facility] INTERNAL MEDICINE [place], [place] Hospitalist 06/05/23 documented as of this encounter
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
--- OUTSIDE RECORDS SUMMARY | 2024-10-30 06:48 | XMS_ITS | Encounter Summary ---
Author Organization [facility] Address [address] [facility] [place] [address] Care Team Providers Care Wrapper Off Name Role Phone Katina Casiano DO Unavailable [phone] Tracey Ang PA Unavailable [phone] Belkis Angel SILVER SERVICE WAITER-BOX SEALING MACHINE OPERATOR Primary Care Provider + Reason for Visit * Reason Onset Date Comments MEDICATION REFILL 12/25/2023 Encounter Details Date Type Department Care Team (Late st Contact Info) Description 12/25/2023 Refill [facility] - Cardiology [address] [facility] [address] [place] [phone] Bridget Lomas MD MEDICATION REFILL Social History [...] Telephone Encounter - Eli Mendez RN - 12/26/2023 2:00 PM CST Refill Request Josafat Calvo EDELMIRA: 05/30/23Aug due: 6 months NOV scheduled: Visit date not found Allergies: Allergies Allergen Reactions ??? Lisinopril Anaphylaxis and Unknown ??? Pcn [Penicillins] Anaphylaxis ??? Penicillin G Swelling Pended Medication Order: Requested Prescriptions Pending Prescriptions Disp Refills ??? atorvastatin (Lipitor) 40 MG tablet 90 tablet 3 Sig: Take 1 (one) tablet by mouth once daily FACTURING PRODUCTION MANAGER documented in this encounter Plan of Treatment [...] on filedocumented in this encounter Care Teams Wrapper Off Relationship Specialty Start Date End Date Belkis Angel, SILVER SERVICE WAITER-BOX SEALING MACHINE OPERATOR [address] [place] [phone] PCP - General Nurse Practitioner 08/29/23 05/05/24 Katina Casiano DO [address] [place] [address] OF [facility] INTERNAL MEDICINE [place], [place] Hospitalist 06/05/23 Tracey Ang PA [address] [facility] [address] [place] [address] Physician Medical Claims Processor 08/15/23 documented as of this encounter
--- OUTSIDE RECORDS SUMMARY | 2024-10-30 06:48 | XMS_ITS | Encounter Summary ---
Author Organization [facility] Address [address] [facility] [place] [address] Care Team Providers Care Microbiology Lab Analyst Name Role Phone Ian Pollock MD Primary Care Provider [phone] Katina Casiano DO Unavailable [phone] Encounter Details Date Type Department Care Team (Late st Contact Info) Description 05/19/2023 Orders Only [facility] - Cardiology [address] [facility], [facility] [address] [place] [phone] Erin Monge, RN Coronary artery disease involving umatilla tribe coronary artery of umatilla tribe heart without angina pectoris ; Heart failure with reduced ejection fraction (HCC); Hypertension, secondary; Essential hypertension; PVD (peripheral vascular disease) (HCC) Social History Tobacco Use Types [...] Orde r Schedule LIPID PROFILE Lab Routine Heart failure with reduced ejection fraction (HCC) Hypertension, secondary Essential hypertension Coronary artery disease involving umatilla tribe coronary artery of umatilla tribe heart without angina pectoris PVD (peripheral vascular disease) (HCC) Ordered: 05/19/2023 documented as of this encounter Goals Goal Patient Goal Type Associated Problems Recent Progress Patient-Stated? Author Mobility General No Stephanie Gallegos, ALYX Note: Expected end date: *10/30/2019 The goal is to maintain or improve your mobility at the optimum level for you. Interventions: documented as of this encounter Visit Diagnoses Diagnosis Coronary artery disease involving umatilla tribe coronary artery of umatilla tribe heart without angina pectoris- Primary Heart failure with reduced ejection fraction (HCC) Hypertension, secondary Other secondary hypertension, unspecified Essential hypertension PVD (peripheral vascular disease) (HCC) Peripheral vascular disease, unspecified documented in this encounter Care Teams Microbiology Lab Analyst Relationship Specialty Start Date End Date Ian Pollock MD [address] DIV OF [place] [address] PCP - General 08/21/20 05/29/23 Katina Casiano DO [address] DIV OF GEN INTERNAL MEDICINE [place], [place] Resident - PCP Internal Medicine 08/10/22 05/29/23 documented as of this encounter
--- OUTSIDE RECORDS SUMMARY | 2024-10-30 06:48 | XMS_ITS | Encounter Summary ---
Author Organization [facility] Health Address [address] [facility] [place] [address] Care Team Providers Care Healthcare Specialist Name Role Phone Unavailable Primary Care Provider Unavailabl e Encounter Details Date Type Department Care Team (Late st Contact Info) Description 05/30/2023 Orders Only [facility] - Internal Med [address] [facility], [place] [phone] Liana Olivares MD [address] [place] [address] Tobacco abuse Social History Tobacco Use Types Packs/Day Years [...] of this encounter Visit Diagnoses Diagnosis Tobacco abuse- Primary Tobacco use disorder documented in this encounter
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
--- OUTSIDE RECORDS SUMMARY | 2024-10-30 06:48 | XMS_ITS | Encounter Summary ---
Author Organization [facility] Health Address [address] [address] Care Team Providers Care Quality Internship Name Role Phone Xavi ACOSTA MD, Jameel Gaviria Primary Care Provider + Katina Casiano DO Unavailable [phone] Reason for Visit * Reason Onset Date Comments MEDICATION REFILL 06/28/2023 Encounter Details Date Type Department Care Team (Late st Contact Info) Description 06/28/2023 Telephone [facility], [facility] [place] [address] Bridget Finley LPN MEDICATION REFILL Social History Tobacco Use Types [...] encounter Miscellaneous Notes * Telephone Encounter - Bridget Finley LPN - 06/28/2023 2:03 PM CDT Patient called stating he did not fill his prescription for Tadalafil and is a former patient of Angeles Ojeda NP. Medication was refilled and patient will continue care with Angelika Madrigal CONVEYOR LINE BATTERY CHARGER. documented in this encounter Plan of Treatment [...] on filedocumented in this encounter Care Teams Quality Internship Relationship Specialty Start Date End Date Jameel Hurley III, MD [address] DIV [place] [address] PCP - General Internal Medicine 06/05/23 08/28/23 Katina Casiano DO [address] DIV OF GEN INTERNAL MEDICINE [place], [place] Hospitalist 06/05/23 documented as of this encounter
--- OUTSIDE RECORDS SUMMARY | 2024-10-30 06:48 | XMS_ITS | Encounter Summary ---
Author Organization [facility] Health Address [address] [place] [address] Care Team Providers Care Drum Sander Name Role Phone Ian Pollock MD Primary Care Provider [phone] Katina Casiano DO Unavailable [phone] Encounter Details Date Type Department Care Team (Latest Contact Info) Description 05/15/2023 Travel Social History Tobacco Use Types Packs/Day [...] on filedocumented in this encounter Care Teams Drum Sander Relationship Specialty Start Date End Date Ian Pollock MD [address] DIV OF [facility] [place] [address] PCP - General 08/21/20 05/29/23 Katina Casiano DO [address] DIV OF [facility] INTERNAL MEDICINE [place], [place] Resident - PCP Internal Medicine 08/10/22 05/29/23 documented as of this encounter
--- OUTSIDE RECORDS SUMMARY | 2024-10-30 06:48 | XMS_ITS | Encounter Summary ---
Author Organization [facility] Health Address [address] [place] [address] Care Team Providers Care Process Specialist Name Role Phone Ian Pollock MD Primary Care Provider [phone] Katina Casiano DO Unavailable [phone] Reason for Visit * Reason Onset Date Comments MEDICATION REFILL 03/28/2023 Encounter Details Date Type Department Care Team (Late st Contact Info) Description 03/28/2023 Refill [facility] - Internal Med [address] [facility], [facility] [place] [address] Katina Casiano, DO [address] [place] [address] MEDICATION REFILL Social History Tobacco [...] Telephone Encounter - Imelda Hoff LPN - 03/28/2023 3:02 PM CDT Refill Request Josafta Calvo Recent Visits Date Type Provider Dept [...] and meeting all other requirements Last Refill: 5.01.19 Allergies: Allergies Allergen Reactions ??? Lisinopril Anaphylaxis [...] disorder documented in this encounter Care Teams Process Specialist Relationship Specialty Start Date End Date Ian Pollock MD [address] [facility] [address] DIV OF [facility] [place] [address] PCP - General 08/21/20 05/29/23 Katina Casiano DO [address] [facility] 2L DIV OF [facility] INTERNAL MEDICINE [place], [place] Resident - PCP Internal Medicine 08/10/22 05/29/23 documented as of this encounter
--- OUTSIDE RECORDS SUMMARY | 2024-10-30 06:48 | XMS_ITS | Encounter Summary ---
Author Organization [facility] Health Address [address] [facility] [address] [place] [address] Care Team Providers Care Chemist Proteins Name Role Phone Katina Casiano DO Unavailable [phone] Tracey Ang PA Unavailable [phone] Belkis Angel HAM PUMPER-RECORD TESTER Primary Care Provider + Encounter Details Date Type Department Care Team (Late st Contact Info) Description 09/18/2023 Orders Only [facility], [facility] [place] [id number] Estephanie Hernandez RN Social History Tobacco Use Types Packs/Day Years [...] on filedocumented in this encounter Care Teams Chemist Proteins Relationship Specialty Start Date End Date Belkis Angel, HAM PUMPER-RECORD TESTER [address] [facility] 2nd [place] [address] PCP - General Nurse Practitioner 08/29/23 05/05/24 Katina Casiano DO [address] [facility] 2L [facility] INTERNAL MEDICINE [place], [place] Hospitalist 06/05/23 Tracey Ang PA [address] [facility] [address] [place] [address] Physician Appian Developer 08/15/23 documented as of this encounter
--- OUTSIDE RECORDS SUMMARY | 2024-10-30 06:48 | XMS_ITS | Encounter Summary ---
Author Organization [facility] Health Address [address] [place] [address] Care Team Providers Care Alumnae Secretary Name Role Phone Xavi ACOSTA MD, Jameel Gaviria Primary Care Provider + Katina Casiano DO Unavailable [phone] Encounter Details Date Type Department Care Team (Latest Contact Info) Description 08/03/2023 Travel Social History Tobacco Use Types Packs/Day [...] on filedocumented in this encounter Care Teams Alumnae Secretary Relationship Specialty Start Date End Date Jameel Hurley III, MD [address] DIV OF [facility] [place] [address] PCP - General Internal Medicine 06/05/23 08/28/23 Katina Casiano DO [address] DIV OF [facility] INTERNAL MEDICINE [place], [place] Hospitalist 06/05/23 documented as of this encounter
--- OUTSIDE RECORDS SUMMARY | 2024-10-30 06:48 | XMS_ITS | Encounter Summary ---
Author Organization [facility] Health Address [address] [facility] [place] [address] Care Team Providers Care Party Demonstrator Name Role Phone Xavi ACOSTA MD, Jameel Gaviria Primary Care Provider + Katina Casiano DO Unavailable [phone] Reason for Visit * Reason Onset Date Comments MEDICATION REFILL 06/07/2023 Encounter Details Date Type Department Care Team (Late st Contact Info) Description 06/07/2023 Refill [facility] - Internal Med [facility], [facility] [place] [address] Liana Olivares MD [address] [place] [phone] MEDICATION REFILL Social History Tobacco Use Types [...] on filedocumented in this encounter Care Teams Party Demonstrator Relationship Specialty Start Date End Date Jameel Hurley III, MD [address] DIV OF [facility] [place] [address] PCP - General Internal Medicine 06/05/23 08/28/23 Katina Casiano DO [address] DIV OF [facility] INTERNAL MEDICINE [place], [place] Hospitalist 06/05/23 documented as of this encounter
--- OUTSIDE RECORDS SUMMARY | 2024-10-30 06:48 | XMS_ITS | Encounter Summary ---
Author Organization [facility] Health Address [address] [place] [address] Care Team Providers Care Assembler Small Products Name Role Phone Ian Pollock MD Primary Care Provider [phone] Katina Casiano DO Unavailable [phone] Reason for Visit * Reason Onset Date Comments Forms 02/13/2023 [place] handicap plac adeline Encounter Details Date Type Department Care Team (Late st Contact Info) Description 02/13/2023 Telephone [facility] General Internal Medicine [address] [facility], [facility] [place] [address] Katina Casiano, DO [address] [place] [address] Forms ([place] handicap placard) Social History Tobacco Use Types Packs/Day Years [...] * Telephone Encounter - Dayna Pinto - 02/13/2023 3:40 PM CDT Patient requests [employer] placard for parking. Form placed in your folder for signature. documented in this encounter Plan [...] on filedocumented in this encounter Care Teams Assembler Small Products Relationship Specialty Start Date End Date Ian Pollock MD [address] DIV OF [facility] [place] [address] PCP - General 08/21/20 05/29/23 Katina Casiano DO [address] DIV OF [facility] INTERNAL MEDICINE [place], [place] Resident - PCP Internal Medicine 08/10/22 05/29/23 documented as of this encounter
--- OUTSIDE RECORDS SUMMARY | 2024-10-30 06:48 | XMS_ITS | Encounter Summary ---
Author Organization [facility] Health Address [address] [place] [address] Care Team Providers Care Heat Engineering Teacher Name Role Phone Ian Pollock MD Primary Care Provider [phone] Katina Casiano DO Unavailable [phone] Reason for Visit * Reason Comments Refill Request Encounter Details Date Type Department Care Team (Late st Contact Info) Description 03/03/2023 Refill [facility] [address] [facility], [place] [address] Florence Ojeda, SURGICAL SERVICES ASST-LAWN MAINTENANCE WORKER [address] [place] [address] [place] [id number] Refill Request Social History Tobacco Use Types [...] on filedocumented in this encounter Care Teams Heat Engineering Teacher Relationship Specialty Start Date End Date Ian Pollock MD [address] DIV OF [place] [address] PCP - General 08/21/20 05/29/23 Katina Casiano DO [address] DIV OF GEN INTERNAL MEDICINE [place], [place] Resident - PCP Internal Medicine 08/10/22 05/29/23 documented as of this encounter
--- OUTSIDE RECORDS SUMMARY | 2024-10-30 06:48 | XMS_ITS | Encounter Summary ---
Author Organization [facility] Address [address] [place] [address] Care Team Providers Care Judicial Reporter Name Role Phone Ian Pollock MD Primary Care Provider [phone] Katina Casiano DO Unavailable [phone] Reason for Referral * Radiology Services (Routine) - Closed Specialty Diagnoses / Procedures Referred By Contac t Referred To Contact CT Scan Diagnoses Pulmonary nodule Procedures CT CHEST WO CONTRAST Jeffrey Oliveira MD [address] [place] [address] 2L DIV OF PULMONARY/[place] [address] [facility] [address] [place] [address] Referral ID Status Reason Start Date Expiration Date Visits Re quested Visits Authorized [id number] Closed 01/25/2023 01/25/2024 1 1 Reason for Visit * Radiology Services (Routine) - Closed Specialty Diagnoses / Procedures Referred By Contac t Referred To Contact CT Scan Diagnoses Pulmonary nodule Procedures [place] [address] [place] [address] 2L DIV OF PULMONARY/[place] [address] [facility] [address] [place] [address] Referral ID Status Reason Start Date Expiration Date Visits Re quested Visits Authorized [id number] Closed 01/25/2023 01/25/2024 1 1 Encounter Details Date Type Department Care Team (Late st Contact Info) Description 01/31/2023 7:39 AM CDT - 01/31/2023 11:59 PM CDT Hospital Encounter [facility] CAT SCAN [address] [place] [address] Jeffrey Oliveira MD [address] [facility] 2L DIV OF PULMONARY/[place] [address] Discharge Disposition: Home or Self Care Social [...] Shortness of Breath 75 mL 6 12/14/2022 fluticasone propionate (Flonase) 50 MCG/ACT nasal sprayIndications:Asth [...] Reasons: Erectile Dysfunction 10 tablet 4 01/18/2022 albuterol HFA (Proventil; Ventolin; Proair) 108 (90 Base) MCG/ACT inhalerIndications:Ce ntrilobular emphysema (HCC),Asthma-COPD overlap syndrome (HCC) Inhale 2 (two) puffs by mouth every 6 hours as needed 18 g 3 12/14/2022 04/07/2023 alfuzosin CR 24hr (Uroxatral) 10 MG tablet Take 1 (one) tablet by mouth once daily 30 tablet 4 11/18/2022 03/03/2023 ASPIRIN LOW DOSE 81 MG chew tablet CHEW AND SWALLOW 1 TAB DAILY 100 tablet 2 06/03/2021 02/13/2023 atorvastatin (Lipitor) 40 MG tablet Take 1 [...] by mouth once daily 30 tablet 1 12/29/2022 02/27/2023 hydroCHLOROthiazide (Hydrodiuril) 25 MG tablet Take 1 [...] better erection) 20 tablet 3 11/18/2022 06/28/2023 tiotropium (Spiriva Respimat) 2.5 MCG/ACT inhalerIndications:Pu lmonary emphysema, unspecified emphysema type (HCC),Asthma, unspecified asthma severity, unspecified whether complicated, unspecified whether persistent (HCC) Inhale 2 (two) puffs by mouth once daily 12 g 4 01/10/2023 03/14/2023 triamcinolone acetonide (Kenalog) 0.1 % cream Apply to affected area 2 times daily 60 g 12/14/2022 04/25/2023 varenicline (Chantix Starting Month Kojo) 0.5 MG X 11 & 1 MG X 42 tabletsIndications:To bacco abuse Take by mouth as directed Take 0.5 mg daily days 1-3, twice daily days 4-7, then 1 mg twice daily 53 tablet 12/29/2022 02/28/2023 ziprasidone (GEODON) 40 MG capsule 08/25/2020 01/29/2024 [...] Procedure Name Priority Date/Time Associated Diagnosis Comments CT CHEST WO CONTRAST Routine 01/31/2023 7:47 AM CDT Pulmonary nodule documented in this encounter Results * CT CHEST WO CONTRAST (01/31/2023 7:47 AM CDT) Anatomical Region Laterality Modality Chest Computed Tomogra [...] Bernard MD. > Dictated by David Bernard (Musical Performer) 01/31/2023 11:34 AM IBimal MD have personally reviewed and interpreted this examination/study. > Interpreting Provider: Bimal Lozano MD on 01/31/2023 11:37 AM Narrative 01/31/2023 11:37 AM CDT PROCEDURE: ??CT CHEST WO CONTRAST, DATE/TIME OF EXAM: ??01/31/2023 7:47 AM, LOCATION ??[facility] INDICATION: R91.1: Pulmonary nodule ADDITIONAL CLINICAL INFORMATION: [...] DATE/TIME OF EXAM: 01/31/2023 7:47 AM, LOCATION [facility] INDICATION: R91.1: Pulmonary nodule ADDITIONAL CLINICAL INFORMATION: [...] Bernard MD. > Dictated by David Bernard (Musical Performer) 01/31/2023 11:34 AM I, Bimal Lozano MD have personally reviewed and interpreted this examination/study. > Interpreting Provider: Bimal Lozano MD on 01/31/2023 11:37 AM Jeffrey Oliveira MD CT ORDERABLES documented in this encounter Visit Diagnoses Diagnosis Pulmonary nodule Solitary pulmonary nodule documented in this encounter Care Teams Judicial Reporter Relationship Specialty Start Date End Date Ian Pollock MD [address] 2[address] DIV [place] [address] PCP - General 08/21/20 05/29/23 Katina Casiano DO [address] DIV OF [facility] INTERNAL MEDICINE [place], [place] Resident - PCP Internal Medicine 08/10/22 05/29/23 documented as of this encounter
--- OUTSIDE RECORDS SUMMARY | 2024-10-30 06:48 | XMS_ITS | Encounter Summary ---
Author Organization [facility] Health Address [address] [place] [address] Care Team Providers Care Supercharge Repair Supervisor Name Role Phone Xavi ACOSTA MD, Jameel Gaviria Primary Care Provider + Katina Casiano DO Unavailable [phone] Encounter Details Date Type Department Care Team (Latest Contact Info) Description 07/18/2023 Travel Social History Tobacco Use Types Packs/Day [...] on filedocumented in this encounter Care Teams Supercharge Repair Supervisor Relationship Specialty Start Date End Date Jameel Hurley III, MD [address] DIV OF [facility] [place] [address] PCP - General Internal Medicine 06/05/23 08/28/23 Katina Casiano DO [address] 2[address] DIV OF [facility] INTERNAL MEDICINE [place], [place] Hospitalist 06/05/23 documented as of this encounter
--- OUTSIDE RECORDS SUMMARY | 2024-10-30 06:48 | XMS_ITS | Encounter Summary ---
Author Organization [facility] Address [address] [facility] [place] [address] Care Team Providers Care Residence Supervisor Name Role Phone Xavi ACOSTA MD, Jameel Gaviria Primary Care Provider + Katina Casiano DO Unavailable [phone] Reason for Visit * Reason Onset Date Comments Request Lab Order 07/25/2023 Encounter Details Date Type Department Care Team (Late st Contact Info) Description 07/25/2023 Telephone [facility] - Cardiology [address] [facility] [address] [place] [address] Tracey Ang, PA [address] [place] [address] Request Lab Order Social History Tobacco Use Types Packs/Day Years [...] Telephone Encounter - Eli Mendez RN - 07/26/2023 1:23 PM CDT Lab order faxed to [facility]. Fax confirmation received. * Telephone Encounter - Natalie Flood - 07/25/2023 3:25 PM CDT Pt would like his lab order sent to [facility]. If needed he can be reached at [phone] Apurva documented in this encounter Plan of Treatment [...] on filedocumented in this encounter Care Teams Residence Supervisor Relationship Specialty Start Date End Date Jameel Hurley III, MD [address] OF [facility] [place] [address] PCP - General Internal Medicine 06/05/23 08/28/23 Katina Casiano DO [address] OF [facility] INTERNAL MEDICINE [place], [place] Hospitalist 06/05/23 documented as of this encounter
--- OUTSIDE RECORDS SUMMARY | 2024-10-30 06:48 | XMS_ITS | Encounter Summary ---
Author Organization [facility] Health Address [address] [facility] [place] [address] Care Team Providers Care Six Sigma Black Trainer Name Role Phone Ian Pollock MD Primary Care Provider [phone] Katina Casiano DO Unavailable [phone] Reason for Visit * Reason Onset Date Comments MEDICATION REFILL 04/25/2023 Encounter Details Date Type Department Care Team (Late st Contact Info) Description 04/25/2023 Refill [facility] - Internal Med [address] [facility], [facility] [place] [address] Katina Casiano, DO [address] [place] [address] MEDICATION REFILL Social History Tobacco Use Types [...] encounter Miscellaneous Notes * Telephone Encounter - Radha Jones RN - 04/25/2023 12:12 PM CDT Refill Request Josafat Calvo chantix EDELMIRA: 12/29/22 NOV scheduled: Visit date not found LRF: 03/29/23 Qty Disp: 53 # of refills: 0 Triamcinolone LRF: 12/14/22 Qty Disp: 60g # of refills: 0 Allergies: Allergies Allergen [...] days 4-7, then 1 mg twice daily ??? triamcinolone acetonide (Kenalog) 0.1 % cream 60 g 0 Sig: Apply to affected area 2 times daily documented in this encounter Plan of Treatment Not on file documented as of this encounter Goals Goal Patient Goal Type Associated Problems Recent Progress Patient-Stated? Author Mobility General No Gallegos, Stephanie, RN Note: Expected end date: *10/30/2019 The goal is to maintain or improve your mobility at the optimum level for you. Interventions: documented as of this encounter Visit Diagnoses Diagnosis Tobacco abuse Tobacco use disorder documented in this encounter Care Teams Six Sigma Black Trainer Relationship Specialty Start Date End Date Ian Pollock MD [address] DIV OF [facility] [place] [address] PCP - General 08/21/20 05/29/23 Katina Casiano DO [address] DIV OF [facility] INTERNAL [place], [place] Resident - PCP Internal Medicine 08/10/22 05/29/23 documented as of this encounter
--- OUTSIDE RECORDS SUMMARY | 2024-10-30 06:48 | XMS_ITS | Encounter Summary ---
Author Organization [facility] Health Address [address] [facility] [place] [address] Care Team Providers Care Amusement Park Ride Mechanic Name Role Phone Katina Casiano DO Unavailable [phone] Tracey Ang PA Unavailable [phone] Belkis Angel FIRE LIEUTENANT MARINE-LEARNING SUPPORT RESOURCE ROOM TEACHER Primary Care Provider + Encounter Details Date Type Department Care Team (Latest Contact Info) Description 09/19/2023 Travel Social History Tobacco Use Types Packs/Day [...] on filedocumented in this encounter Care Teams Amusement Park Ride Mechanic Relationship Specialty Start Date End Date Belkis Angel, FIRE LIEUTENANT MARINE-LEARNING SUPPORT RESOURCE ROOM TEACHER [address] [facility] 2nd [place] [address] PCP - General Nurse Practitioner 08/29/23 05/05/24 Katina Casiano DO [address] [place] [address] DIV OF [facility] INTERNAL MEDICINE [place], [place] Hospitalist 06/05/23 Tracey Ang PA [address] [facility] [address] [place] [address] Physician Linotyper 08/15/23 documented as of this encounter
--- OUTSIDE RECORDS SUMMARY | 2024-10-30 06:49 | XMS_ITS | Encounter Summary ---
Author Organization [facility] Health Address [address] [facility] [place] [address] Care Team Providers Care Candy Separator Hard Name Role Phone Ian Pollock MD Primary Care Provider [phone] Katina Casiano DO Unavailable [phone] Encounter Details Date Type Department Care Team (Late st Contact Info) Description 09/16/2022 Orders Only [facility] [address] [place] [address] Sasha Gunter, RN Social History Tobacco Use Types Packs/Day Years Used Date Smoking Tobacco: Every Day Cigarettes 1 30 Smokeless Tobacco: Never Alcohol Use Standard Drinks/Week Comments Yes 6 (1 standard drink = 0.6 oz pure alcohol) beer madi. 25 oz 3 times a week PHQ-2 Answer Date Recorded PHQ2 TOTAL SCORE 0 07/29/2022 Sex and Gender Information Value Date Recorded Sex Assigned at Not on file Gender Identity Not on file Sexual Orientation Not on file documented as of this encounter Functional Status Functional Status Response Date of Assess ment Is person deaf or have serious hearing difficult y? No 01/20/2021 Is person blind or have serious difficulty seein g? No 01/20/2021 Does person have serious dif ficulty walking/climbing stairs? Yes 01/20/2021 Does person have difficulty dressing/bathing? No 01/20/2021 Does person have difficulty doing errands alone? No 01/20/2021 Cognitive Status Response Date of Assessm ent Does person have difficulty concentrating/remembering/making decisions? No 01/20/2021 documented as of this encounter Plan of [...] on filedocumented in this encounter Care Teams Candy Separator Hard Relationship Specialty Start Date End Date Ian Pollock MD [address] 2[address] DIV [place] [address] PCP - General 08/21/20 05/29/23 Katina Casiano DO [address] 2[address] DIV OF [facility] INTERNAL MEDICINE [place], [place] Resident - PCP Internal Medicine 08/10/22 05/29/23 documented as of this encounter
--- OUTSIDE RECORDS SUMMARY | 2024-10-30 06:49 | XMS_ITS | Encounter Summary ---
Author Organization [facility] Address [address] [place] [address] Care Team Providers Care Medical Insurance Claims Specialist Name Role Phone Ian Pollock MD Primary Care Provider [phone] Encounter Details Date Type Department Care Team (Late st Contact Info) Description 01/18/2022 Orders Only [facility] [address] [place] [address] Estephanie Hernandez RN Prostate cancer screening ; Elevated PSA Social History Tobacco Use Types Packs/Day Years Used Date Smoking Tobacco: Every Day Cigarettes 1 30 Smokeless Tobacco: Never Alcohol Use Standard Drinks/Week Comments Yes 6 (1 standard drink = 0.6 oz pure alcohol) beer madi. 25 oz 3 times a week PHQ-2 Answer Date Recorded PHQ2 TOTAL SCORE 0 11/09/2021 Sex and Gender Information Value Date Recorded Sex Assigned at Not on file Gender Identity Not on file Sexual Orientation Not on file COVID-19 Exposure Response Date Recorded In the last month, have you been in contact with someone who was confirmed or suspected to have Coronavirus / COVID-19? No / Unsure 01/18/2022 8:40 AM CDT documented as of this encounter [...] Procedure Name Priority Date/Time Associated Diagnosis Comments PROSTATE SPECIFIC ANTIGEN SCREEN Routine 01/31/2022 10:17 AM CDT Prostate cancer screening Elevated PSA documented in this encounter Results * PROSTATE SPECIFIC ANTIGEN SCREEN (01/31/2022 10:17 AM CDT) Pathologist [facility] PSA 0.40 < OR = 4.00 ng/mL [facility] Comment: The total PSA value from this assay system is standardized against the WHO standard. The test result will be approximately 20% lower when compared to the equimolar-standardized total PSA (Alison Kingston). Comparison of serial PSA results should be interpreted with this fact in mind. This test was performed using the Siemens chemiluminescent method. Values obtained from different assay methods cannot be used interchangeably. PSA levels, regardless of value, should not be interpreted as absolute evidence of the presence or absence of disease. Test Performed at: [facility] [address] [place], [place] ??[phone] PRUDENCIO ALDANA DO,MPH Blood BLOOD SPECIMEN / Unknown 01/31/2022 10:17 AM CDT 01/31/2022 10:18 AM CDT Florence Ojeda DIRECTOR OF CLINICAL TRIALS-TIMING INSPECTOR LAB - MACHINE SHORTHAND TEACHER RY ORDERABLES [facility] [address] [place] [address] documented in this encounter Visit Diagnoses Diagnosis Prostate cancer screening- Primary Special screening for malignant neoplasm of prostate Elevated PSA Elevated prostate specific antigen (PSA) documented in this encounter Care Teams Medical Insurance Claims Specialist Relationship Specialty Start Date End Date Ian Pollock MD [address] OF [place] [address] PCP - General 08/21/20 05/29/23 documented as of this encounter
--- OUTSIDE RECORDS SUMMARY | 2024-10-30 06:49 | XMS_ITS | Encounter Summary ---
Author Organization [facility] Address [address] [place] [address] Care Team Providers Care Work Adjustment Instructor Name Role Phone Ian Pollock MD Primary Care Provider [phone] Reason for Visit * Reason Comments Refill Request Encounter Details Date Type Department Care Team (Late st Contact Info) Description 03/31/2022 Refill [facility] [address] [facility] [address] [place] [address] Sayed Torres Blankenship MD [address] [place] [address] [place] [address] Refill Request Social History Tobacco Use Types [...] No 01/20/2021 documented as of this encounter Miscellaneous Notes * Telephone Encounter - Maxine Strodu RN - 03/31/2022 8:18 AM CDT Received electronic refill request from [facility] pharmacy for spironolactone. Last seen 03/30/2022 Sayed Torres Blankenship MD Has appt 09/[address] Lomas Refilled per protocol documented in this encounter Plan of Treatment [...] on filedocumented in this encounter Care Teams Work Adjustment Instructor Relationship Specialty Start Date End Date Ian Pollock MD [address] [place] [address] PCP - General 08/21/20 05/29/23 documented as of this encounter
--- OUTSIDE RECORDS SUMMARY | 2024-10-30 06:49 | XMS_ITS | Encounter Summary ---
Author Organization [facility] Address [address] [place] [address] Care Team Providers Care Foreign Languages Department Chair Name Role Phone Ian Pollock MD Primary Care Provider [phone] Katina Casiano DO Unavailable [phone] Reason for Visit * Reason Onset Date Comments MEDICATION REFILL 10/17/2022 Encounter Details Date Type Department Care Team (Late st Contact Info) Description 10/17/2022 Refill [facility] [address] [place] [address] John Nelson MD [address] [place] [address] MEDICATION REFILL Social History Tobacco Use Types [...] Telephone Encounter - Eli Mendez RN - 10/18/2022 7:57 AM CST Refill Request Josafat Calvo EDELMIRA: 09/30/22 NOV due: NOV scheduled: Visit date not found LRF: 07/28/21 Qty Disp: 90 # of refills: 4 Allergies: Allergies Allergen Reactions ??? Lisinopril Anaphylaxis ??? Pcn [Penicillins] Anaphylaxis ??? Penicillin G Swelling Pended Medication Order: Requested Prescriptions Pending Prescriptions Disp Refills ??? hydroCHLOROthiazide (Hydrodiuril) 25 MG tablet 90 tablet 3 Sig: Take 1 (one) tablet by mouth once daily RONMENTAL ANALYST documented in this encounter Plan of Treatment [...] on filedocumented in this encounter Care Teams Foreign Languages Department Chair Relationship Specialty Start Date End Date Ian Pollock MD [address] DIV OF [facility] [place] [address] PCP - General 08/21/20 05/29/23 Katina Casiano DO [address] DIV OF [facility] INTERNAL MEDICINE [place], [place] Resident - PCP Internal Medicine 08/10/22 05/29/23 documented as of this encounter
--- OUTSIDE RECORDS SUMMARY | 2024-10-30 06:49 | XMS_ITS | Encounter Summary ---
Author Organization [facility] Address [address] [facility] [place] [address] Care Team Providers Care Wirer Maintenance Name Role Phone aIn Pollock MD Primary Care Provider Encounter Details Date Type Department Care Team (Late st Contact Info) Description 07/28/2022 Orders Only [facility] Internal Medicine [address] [facility], [place] [address] Katina Casiano, DO [address] [place] [address] Social History Tobacco Use Types Packs/Day Years [...] on filedocumented in this encounter Care Teams Wirer Maintenance Relationship Specialty Start Date End Date Ian Pollock MD [address] [place] [address] PCP - General 08/21/20 05/29/23 documented as of this encounter
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
--- OUTSIDE RECORDS SUMMARY | 2024-10-30 06:49 | XMS_ITS | Encounter Summary ---
Author Organization [facility] Address [address] [facility] [place] [address] Care Team Providers Care Dip Painter Name Role Phone Ian Pollock MD Primary Care Provider Katina Casiano DO Unavailable [phone] Encounter Details Date Type Department Care Team (Late st Contact Info) Description 08/09/2022 Orders Only [facility] Medicine [address] [place] [address], [place] [id number] Ian Pollock MD [address] [place] [address] OF [facility] [place] [address] Social History Tobacco Use Types Packs/Day Years [...] Procedure Name Priority Date/Time Associated Diagnosis Comments CK BLOOD 08/09/2022 1:47 PM CDT documented in this encounter Results * CK BLOOD (08/09/2022 1:47 PM CDT) CK 135 44 - 196 U/L [facility] Comment: Test Performed at: [employer] [email or web address] [id number] [place] [address] ??[phone] PRUDENCIO ALDANA DO,MPH 08/09/2022 1:47 PM CDT 08/09/2022 1:50 PM CDT Ian Pollock MD LAB - CHEMISTRY [facility] [address] [place] [address] documented in this encounter Visit Diagnoses Not on filedocumented in this encounter Care Teams Dip Painter Relationship Specialty Start Date End Date Ian Pollock MD [address] OF [place] [address] PCP - General 08/21/20 05/29/23 Katina Casiano DO [address] DIV OF GEN INTERNAL MEDICINE [place], [place] Resident - PCP Internal Medicine 08/10/22 05/29/23 documented as of this encounter
--- OUTSIDE RECORDS SUMMARY | 2024-10-30 06:49 | XMS_ITS | Encounter Summary ---
Author Organization [facility] Address [address] [place] [address] Care Team Providers Care Appliance Service Representative Name Role Phone Ian Pollock MD Primary Care Provider Reason for Referral * Radiology Services (Routine) - Closed Specialty Diagnoses / Procedures Referred By Contac t Referred To Contact CT Scan Diagnoses Tobacco use disorder Procedures CT LUNG SCREEN LOW DOSE Jeffrey Oliveira MD [address] [facility] 2[address] DIV OF PULMONARY/[place] [address] [facility] [address] [place] [address] Referral ID Status Reason Start Date Expiration Date Visits Re quested Visits Authorized [id number] Closed 12/10/2021 12/10/2022 1 1 Reason for Visit * Radiology Services (Routine) - Closed Specialty Diagnoses / Procedures Referred By Contac t Referred To Contact CT Scan Diagnoses Tobacco use disorder Procedures CT LUNG SCREEN LOW DOSE Jeffrey Oliveira MD [address] [facility] [address]L DIV OF PULMONARY/[place] [address] [facility] [address] [place] [address] Referral ID Status Reason Start Date Expiration Date Visits Re quested Visits Authorized [id number] Closed 12/10/2021 12/10/2022 1 1 Encounter Details Date Type Department Care Team (Late st Contact Info) Description 02/17/2022 11:56 AM CDT - 02/17/2022 11:59 PM CDT Hospital Encounter [facility] CAT SCAN [address] [place] [address] Jeffrey Oliveira MD [address] [facility] 2L DIV OF PULMONARY/[place] [address] Discharge Disposition: Home or Self Care Social [...] No 01/20/2021 documented as of this encounter Medications at Time of Discharge Medication Sig Dispensed Refills Start Date End Date acetaminophen (TYLENOL) 500 MG capsuleIndications:Pa in Take 1 (one) capsule by mouth every 4 hours as needed for Fever or Pain Reasons: Pain hydrOXYzine pamoate (VISTARIL) 100 MG capsule 07/10/2021 lamoTRIgine (LAMICTAL) 100 MG tablet 09/14/2020 nicotine polacrilex (COMMIT) 4 MG lozengeIndications:Ni cotine [...] Erectile Dysfunction 10 tablet 4 01/18/2022 albuterol (PROVENTIL;VENTOLIN) (2.5 MG/3ML) 0.083% nebulizer solutionIndications:C entrilobular emphysema (HCC) Inhale 2.5 (two and one-half) mg by mouth every 4 hours as needed for Shortness of Breath 75 mL 09/07/2021 12/14/2022 albuterol HFA (PROVENTIL; VENTOLIN; PROAIR) 108 (90 Base) MCG/ACT inhalerIndications:Ce ntrilobular emphysema (HCC) Inhale 2 (two) puffs by mouth every 6 hours as needed 18 g 3 01/06/2022 07/12/2022 alfuzosin CR 24hr (UROXATRAL) 10 MG tabletIndications:Dave ign Prostatic Hypertrophy Take 1 (one) tablet by mouth once daily Reasons: Benign Enlargement of Prostate 90 tablet 3 01/18/2022 03/14/2022 ASPIRIN LOW DOSE 81 MG chew tablet CHEW AND SWALLOW 1 TAB DAILY 100 tablet 2 06/03/2021 02/13/2023 atorvastatin (LIPITOR) 40 MG tablet TAKE 1 TABLET BY MOUTH EVERY DAY 90 tablet 2 08/24/2021 06/14/2022 budesonide-formoterol (SYMBICORT) 160-4.5 MCG/ACT inhalerIndications:NO SUBSTITUTION, BRAND NAME ONLY Inhale 2 (two) puffs by mouth 2 times daily Reasons: NO SUBSTITUTION, BRAND NAME ONLY 10.2 g 3 09/14/2021 12/14/2022 carvedilol (COREG) 12.5 MG tablet Take 1 (one) tablet by mouth 2 times daily with morning and evening meal 180 tablet 3 07/28/2021 08/02/2022 fluticasone propionate (FLONASE) 50 MCG/ACT nasal spray SHAKE LIQUID AND USE 2 SPRAYS IN EACH NOSTRIL EVERY DAY 16 g 11 09/30/2020 12/14/2022 gabapentin (NEURONTIN) 300 MG capsuleIndications:Ch ronic midline low back pain without sciatica,Lumbosacral disc disease,Foraminal stenosis of lumbar region Take 1 (one) capsule by mouth 2 times daily 60 capsule 5 11/09/2021 09/12/2022 hydroCHLOROthiazide (HYDRODIURIL) 25 MG tablet Take 1 (one) tablet by mouth once daily 90 tablet 4 07/28/2021 10/17/2022 omeprazole (PRILOSEC) 20 MG capsule 07/11/2021 07/29/2022 Pseudoephedrine-Guaif enesin (MUCINEX D PO) 2021 spironolactone (ALDACTONE) 50 MG tablet TAKE 1 TABLET BY MOUTH EVERY DAY 30 tablet 2 09/20/2021 03/31/2022 tiotropium (SPIRIVA RESPIMAT) 2.5 MCG/ACT inhaler Inhale 2 (two) puffs by mouth once daily 12 g 4 12/22/2021 07/29/2022 ziprasidone (GEODON) 40 MG capsule 08/25/2020 01/29/2024 [...] Name Priority Date/Time Associated Diagnosis Comments CT LUNG SCREEN LOW DOSE Routine 02/17/2022 12:02 PM CDT Tobacco use disorder documented in this encounter Results * CT LUNG SCREEN LOW DOSE (02/17/2022 12:02 PM CDT) Anatomical Region Laterality Modality Chest Computed [...] by Yoel Bro (resident) I, Dr. RANDA HALE have personally reviewed and interpreted this examination/study. This report was electronically signed by RANDA HALE ??on 02/17/2022 3:43 PM . Narrative 02/17/2022 [...] abdominal viscera appear unremarkable. Procedure Note Randa Hale MD - 02/17/2022 Procedure Information DATE: 02/17/2022 [...] return to screening) Report drafted by Yoel Loveresident) I, Dr. RANDA HALE have personally reviewed and interpreted this examination/study. This report was electronically signed by RANDA HALE on 02/17/2022 3:43PM . Jeffrey Oliveira MD CT ORDERABLES documented in this encounter Visit Diagnoses Diagnosis Tobacco use disorder documented in this encounter Care Teams Appliance Service Representative Relationship Specialty Start Date End Date Ian Pollock MD [address] [place] [address] PCP - General 08/21/20 05/29/23 documented as of this encounter
--- OUTSIDE RECORDS SUMMARY | 2024-10-30 06:49 | XMS_ITS | Encounter Summary ---
Author Organization [facility] Address [address] [place] [address] Care Team Providers Care Tile Layer Drainage Name Role Phone Ian Pollock MD Primary Care Provider Encounter Details Date Type Department Care Team (Latest Contact Info) Description 01/18/2022 8:43 AM CDT - 01/18/2022 11:59 PM CDT Hospital Encounter [facility] DRAW STATION [address] [place] [phone] Florence Ojeda M, OCCUPATIONAL THERAPY AIDES TEACHER-SANDER PORTABLE MACHINE [address] [facility] 2L [facility] [place] [phone] Discharge Disposition: Home or Self Care Social [...] Sig Dispensed Refills Start Date End Date hydrOXYzine pamoate (VISTARIL) 100 MG capsule 07/10/2021 lamoTRIgine (LAMICTAL) 100 MG tablet 09/14/2020 sildenafil (VIAGRA) 100 MG tabletIndications:Ere ctile Dysfunction [...] once daily 90 tablet 4 07/28/2021 10/17/2022 latanoprost (XALATAN) 0.005 % ophthalmic solution 01/25/2019 01/19/2022 montelukast (SINGULAIR) 10 MG tablet Take 10 mg by mouth once daily 05/27/2021 01/19/2022 nicotine (NICODERM CQ) 14 MG/24HR patch APPLY ONE PATCH TO SKIN ONCE DAILY, REMOVE OLD PATCH 28 patch 1 12/08/2021 01/19/2022 nicotine (NICODERM CQ) 21 MG/24HR patch Apply 1 (one) patch to skin once daily 30 patch 07/30/2021 01/19/2022 nicotine (NICODERM CQ) 7 MG/24HR patch Apply 1 (one) patch to skin once daily 30 patch 07/30/2021 01/19/2022 omeprazole (PRILOSEC) 20 MG capsule 07/11/2021 07/29/2022 pantoprazole EC (PROTONIX) 40 MG tablet Take 1 tablet by mouth once daily 01/08/2021 01/19/2022 Pseudoephedrine-Guaif enesin (MUCINEX D PO) 2021 sildenafil (VIAGRA) 100 MG tabletIndications:Ere ctile Dysfunction Take 1 tablet by mouth as directed 1 hour prior to intercourse Reasons: Erectile Dysfunction 30 tablet 3 09/29/2020 01/19/2022 spironolactone (ALDACTONE) 50 MG tablet TAKE 1 TABLET BY MOUTH EVERY DAY 30 tablet 2 09/20/2021 03/31/2022 sucralfate (CARAFATE) 1 GM tablet TK 1 T PO QID ON AN EMPTY STOMACH 30 MIN TO 1 H BEFORE MEALS AND AT BEDTIME 04/24/2020 01/19/2022 tiotropium (SPIRIVA RESPIMAT) 2.5 MCG/ACT inhaler Inhale 2 (two) puffs by mouth once daily 12 g 4 12/22/2021 07/29/2022 ziprasidone (GEODON) 20 MG capsule TK 1 C PO HS 10/09/2019 01/19/2022 ziprasidone (GEODON) 40 MG capsule 08/25/2020 01/29/2024 [...] on filedocumented in this encounter Care Teams Tile Layer Drainage Relationship Specialty Start Date End Date Ian Pollock MD [address] [place] [address] PCP - General 08/21/20 05/29/23 documented as of this encounter
--- OUTSIDE RECORDS SUMMARY | 2024-10-30 06:49 | XMS_ITS | Encounter Summary ---
Author Organization [facility] Address [address] [place] [address] Care Team Providers Care Tape Recorder Repairer Name Role Phone Ian Pollock MD Primary Care Provider Katina Casiano DO Unavailable [phone] Reason for Visit * Reason Onset Date Comments MEDICATION REFILL 12/12/2022 Encounter Details Date Type Department Care Team (Late st Contact Info) Description 12/12/2022 Refill [facility] [address] [place] [address], [place] [id number] Ian Pollock MD [address] [place] [address] OF [facility] [place] [address] MEDICATION REFILL Social History Tobacco Use Types [...] Telephone Encounter - Ian Pollock MD - 12/12/2022 4:15 PM CST Please send to Resident-PCP TER RUST ERADICATOR * Telephone Encounter - Jigan Stanley RN - 12/12/2022 1:48 PM CST Refill Request Josafat Branch Umesh EDELMIRA: 07/29/22 NOV due: NOV scheduled: 12/29/22 LRF: 08/11/22 Qty Disp: 60g # of refills: 0 Allergies: Allergies Allergen Reactions ??? Lisinopril Anaphylaxis ??? Pcn [Penicillins] Anaphylaxis ??? Penicillin G Swelling Pended Medication Order: Requested Prescriptions Pending Prescriptions Disp Refills ??? triamcinolone acetonide (Kenalog) 0.1 % cream 60 g 0 Sig: Apply to affected area 2 times daily TER RUST ERADICATOR documented in this encounter Plan of Treatment [...] on filedocumented in this encounter Care Teams Tape Recorder Repairer Relationship Specialty Start Date End Date Ian Pollock MD [address] DIV [place] [address] PCP - General 08/21/20 05/29/23 Katina Casiano DO [address] DIV OF GEN INTERNAL MEDICINE [place], [place] Resident - PCP Internal Medicine 08/10/22 05/29/23 documented as of this encounter
--- OUTSIDE RECORDS SUMMARY | 2024-10-30 06:49 | XMS_ITS | Encounter Summary ---
Author Organization [facility] Address [address] [facility] [place] [address] Care Team Providers Care Wound Care Coordinator Name Role Phone Ian Pollock MD Primary Care Provider [phone] Encounter Details Date Type Department Care Team ([facility] Contact Info) Description 03/16/2022 8:30 AM CDT Cardiac Rehab [facility] [address] [place] [address] Heart failure with reduced ejection fraction (HCC) ; Hypertension, secondary Social History Tobacco Use Types Packs/Day Years [...] No 01/20/2021 documented as of this encounter Progress Notes * Ludivina Moore - 03/16/2022 10:55 AM CDT See Daily Exercise Log in media. ECG Interpretation SR, no ectopy noted. Patient's weight is down 4lbs since last visit. Patient got recent cortisone shot in L hip on 03/14/22. Patient was able to tolerate today's exercise well, no complaints of chest pain or shortness of breath upon exertion. VSS upon discharge from Cardiac Rehab. Education handout and discussion given on How to Stick With YourNew Diet . Patient demonstrates good understanding of this topic. Plan for next visit scheduled for03/22 is to continue to increase as tolerated by RPE and THR. Ludivina Moore Cardiac Rehabilitaiton Automation Design Engineer [email or web address] documented in this encounter Plan of Treatment [...] failure with reduced ejection fraction (HCC)- Primary Hypertension, secondary Other secondary hypertension, unspecified documented in this encounter Care Teams Wound Care Coordinator Relationship Specialty Start Date End Date Ian Pollock MD [address] OF [facility] [place] [address] PCP - General 08/21/20 05/29/23 documented as of this encounter
--- OUTSIDE RECORDS SUMMARY | 2024-10-30 06:49 | XMS_ITS | Encounter Summary ---
Author Organization [facility] Address [address] [facility] [place] [address] Care Team Providers Care Block Paver Name Role Phone Ian Pollock MD Primary Care Provider [phone] Katina Casiano DO Unavailable [phone] Reason for Visit * Reason Onset Date Comments Referral 12/30/2022 Encounter Details Date Type Department Care Team (Late st Contact Info) Description 12/30/2022 Telephone [facility] [address] [place] [address], [place] [phone] Ian Pollock MD [address] [place] [address] DIV OF [facility] [place] [address] Referral Social History Tobacco Use Types Packs/Day Years [...] encounter Miscellaneous Notes * Telephone Encounter - Jigna Stanley RN - 12/30/2022 8:56 AM CST Pt calling in stating that he has a sleep study ordered and attempted to make an appointment this morning but sleep study stated there was not a referral. Call placed to sleep study but phone was busy. Call to Rachel who states she does see the referral in the system and will schedule the patient for the study Return call to Mr. Calvo explaining situation and call was transferred to [facility] successfully. No further follow up is required. THIS IS AN FYI ONLY HANDISE DISPLAYER documented in this encounter Plan of Treatment [...] on filedocumented in this encounter Care Teams Block Paver Relationship Specialty Start Date End Date Ian Pollock MD [address] DIV OF [facility] [place] [address] PCP - General 08/21/20 05/29/23 Katina Casiano DO [address] DIV OF GEN INTERNAL MEDICINE [place], [place] Resident - PCP Internal Medicine 08/10/22 05/29/23 documented as of this encounter
--- OUTSIDE RECORDS SUMMARY | 2024-10-30 06:49 | XMS_ITS | Encounter Summary ---
Author Organization [facility] Address [address] [facility] [place] [address] Care Team Providers Care Inker And Opaquer Name Role Phone Ian Pollock MD Primary Care Provider [phone] Katina Casiano DO Unavailable [phone] Reason for Visit * Reason Onset Date Comments MEDICATION REFILL 12/14/2022 Encounter Details Date Type Department Care Team (Late st Contact Info) Description 12/14/2022 Telephone [address] [place] [address] Agnieszka Haas MD [address] [place] [address] MEDICATION REFILL Social History Tobacco Use Types [...] * Telephone Encounter - Ivan Madsen - 12/14/2022 8:42 AM CST NOV: EDELMIRA: RTC in Medication/Ointment: albuterol HFA (Proventil; Ventolin; Proair) 108 (90 Base) MCG/ACT inhaler Disp Qty: 18G Refills Remainin Medication/Ointment: fluticasone propionate (FLONASE) 50 MCG/ACT nasal spray Disp Qty: 16G Refills Remainin Medication/Ointment:budesonide-formoterol (SYMBICORT) 160-4.5 MCG/ACT inhaler Disp Qty: 10.2G Refills Remainin Medication/Ointment: albuterol (PROVENTIL;VENTOLIN) (2.5 MG/3ML) 0.083% nebulizer solution Disp Qty: 75mL Refills Remainin+6 Ivan Madsen Ornamental Metal Fabricator Apprentice III Pulmonary Critical Care ICAL SUPPORT NURSE * Telephone Encounter - Alejandra Garcia - 12/14/2022 8:31 AM CST Pt Josafat wanted to get a refill on his inhaler Albuterol HFA 108 MCG/ACt inhaler. Pt callback is [phone] ICAL SUPPORT NURSE documented in this encounter Plan of Treatment [...] encounter Visit Diagnoses Diagnosis Asthma-COPD overlap syndrome (HCC)- Primary Centrilobular emphysema (HCC) Other emphysema Cough Panlobular emphysema (HCC) Other emphysema documented in this encounter Care Teams Inker And Opaquer Relationship Specialty Start Date End Date Ian Pollock MD [address] DIV OF [facility] [place] [address] PCP - General 08/21/20 05/29/23 Katina Casiano DO [address] DIV OF [facility] INTERNAL [place], [place] Resident - PCP Internal Medicine 08/10/22 05/29/23 documented as of this encounter
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
--- OUTSIDE RECORDS SUMMARY | 2024-10-30 06:49 | XMS_ITS | Encounter Summary ---
Author Organization [facility] Address [address] [place] [address] Care Team Providers Care Veterinary Livestock Inspector Name Role Phone Ian Pollock MD Primary Care Provider [phone] Katina Casiano DO Unavailable [phone] Encounter Details Date Type Department Care Team (Late st Contact Info) Description 09/30/2022 8:40 AM MUSIC COMPOSITION TEACHER Office Visit [facility] [address] [facility] [address] [place] [address] Bridget Lomas MD Coronary artery disease involving hoonah coronary artery of hoonah heart without angina pectoris (Primary Dx); PVD (peripheral vascular disease) (HCC); Tobacco abuse; Cardiomyopathy, unspecified type (HCC); Hypertension, secondary Social History Tobacco Use Types [...] Sign Reading Time Taken Comments Blood Pressure 160/98 09/30/2022 8:48 AM MUSIC COMPOSITION TEACHER Pulse 72 09/30/2022 8:48 AM MUSIC COMPOSITION TEACHER Temperature 36.7 ??C (98.1 ??F) 09/30/2022 8:48 AM CS T Respiratory Rate - - Oxygen Saturation 96% 09/30/2022 8:48 AM MUSIC COMPOSITION TEACHER Inhaled Oxygen Concentration - - Weight 110.2 kg (243 lb) 09/30/2022 8:48 AM MUSIC COMPOSITION TEACHER Height 175.3 cm (5' 9 ) 09/30/2022 8:48 AM MUSIC COMPOSITION TEACHER Body Mass Index 35.88 09/30/2022 8:48 AM MUSIC COMPOSITION TEACHER documented in this encounter Functional Status Functional [...] No 01/20/2021 documented as of this encounter Patient Instructions * Patient Instructions* Bridget Lomas MD - 09/30/2022 9:06 AM MUSIC COMPOSITION TEACHER Check your BP more frequently, at least a few times times weekly. Write these numbers down and bring it to all appointments. Call clinic if consistently higher thank 140/90 mm Hg. Your goal for exercise is at least 150 min of moderate intensity cardio. (meaning can't talk easilywhile exercising). Start slow and work your way up to this goal. The cooper is consistency and making exercise/moving your body a habit. Please call my nurse, Maxine, with any questions or concerns. She can be reached at: [phone] Use ice, heat, icy hot, tylenol for L leg soreness. Notify PCP is continues to be an issue. C COMPOSITION TEACHER documented in this encounter Progress Notes * Bridget Lomas MD - 09/30/2022 8:57 AM CST [facility] History Of Present Illness: Rylee??is a 61 year old??male?? He has??hx of tobacco use, HTN, COPD, cardiomyopathy with recoveredEF?, grade II DD and mild to moderate ??MR Here for follow up? Since last visit he continues to do well. He continues to have left leg pain sometimes at rest, pain around hip area and anterior thigh, follows with orthopedic surgery and they are managing bursitis. Walks with limp on L. Reports improvement in his breathing C/w his medications, not checking BP at home. Continues to smoke?? but trying to quit Denies chest pain palpitations or dizziness Review of Systems: As per HPI. Home Medications: Current Outpatient Medications: ??? acetaminophen (TYLENOL) 500 MG capsule, Take 500 mg by mouth every 4 hours as needed for Fever or Pain Reasons: Pain, Disp: , Rfl: ??? albuterol (PROVENTIL;VENTOLIN) (2.5 MG/3ML) 0.083% nebulizer solution, Inhale 2.5 (two and one-half) mg by mouth every 4 hours as needed for Shortness of Breath, Disp: 75 mL, Rfl: 0 ??? albuterol HFA (Proventil; Ventolin; Proair) 108 (90 Base) MCG/ACT inhaler, INHALE 2 (TWO) PUFFSBY MOUTH EVERY 6 HOURS NEEDED, Disp: 18 g, Rfl: 3 ??? alfuzosin CR 24hr (Uroxatral) 10 MG tablet, Take 10 mg by mouth once daily, Disp: , Rfl: ??? alfuzosin CR 24hr (Uroxatral) 10 MG tablet, as directed, Disp: , Rfl: ??? ASPIRIN LOW DOSE 81 MG chew tablet, CHEW AND SWALLOW 1 TAB DAILY, Disp: 100 tablet, Rfl: 2 ??? atorvastatin (Lipitor) 40 MG tablet, Take 1 (one) tablet by mouth once daily, Disp: 90 tablet, Rfl: 3 ??? budesonide-formoterol (SYMBICORT) 160-4.5 MCG/ACT inhaler, Inhale 2 (two) puffs [...] 30 tablet, Rfl: 1 ??? fluticasone propionate (FLONASE) 50 MCG/ACT nasal spray, SHAKE LIQUID AND USE 2 SPRAYS IN EACH NOSTRIL EVERY DAY, Disp: 16 g, Rfl: 11 ??? hydroCHLOROthiazide (HYDRODIURIL) 25 MG tablet, Take 1 (one) tablet by mouth once daily, Disp: 90 tablet, Rfl: 4 ??? hydrOXYzine pamoate (VISTARIL) 100 MG capsule, , Disp: , Rfl: ??? lamoTRIgine (LAMICTAL) 100 MG tablet, , Disp: , Rfl: ??? nicotine polacrilex (COMMIT) 4 MG lozenge, Take 1 (one) Each by mouth as needed for Smoking Cessation Reasons: Nicotine Addiction, Disp: 108 lozenge, Rfl: 3 ??? nicotine polacrilex (NICORETTE) 4 MG gum, Take 1 (one) Each by mouth as needed for Smoking Cessation Reasons: Nicotine Addiction, Disp: 100 Each, Rfl: 3 ??? omeprazole (PRILOSEC) 40 MG capsule, , Disp: , Rfl: ??? polyethylene glycol (Golytely) 236 g solution, Drink 1/2 of prep at 6pm the night before test. Finish the prep at 6 am the morning of colonoscopy., Disp: 4000 mL, Rfl: 0 ??? sildenafil (VIAGRA) 100 MG tablet, Take 1 (one) tablet by mouth once as needed 1 hour prior to intercourse Reasons: Erectile Dysfunction, Disp: 10 tablet, Rfl: 4 ??? triamcinolone acetonide (Kenalog) 0.1 % cream, Apply to affected area 2 times daily, Disp: 60 g, Rfl: 0 ??? ziprasidone (GEODON) 40 MG capsule, , Disp: , Rfl: Allergies: Allergies Allergen Reactions ??? Lisinopril Anaphylaxis ??? Pcn [Penicillins] Anaphylaxis ??? Penicillin G Swelling OBJECTIVE: Vitals: 09/30/22 0848 BP: 160/98 Pulse: 72 Temp: 98.1 ??F (36.7 ??C) SpO2: 96% Weight: 243 lb (110.2 kg) Height: 5' 9 (1.753 m) Body mass index is 35.88 kg/m??. PHYSICAL EXAM: Gen: A&Ox4, NAD HEENT: NCAT, wearing mask Neck: supple, no bruits Resp: CTAB, no wheezes or crackles CV: RRR, no murmur, no JVD Abd: soft, no TTP Ext: no LE edema L anterior leg with mild TTP, noted limp on L side Pulses: 2+ radial and DP BL Skin: no rashes/lesions on exposed skin Psych: appropriate mood/affect ? TTE 09/2019?? Left ventricular systolic function is mildly decreased with an ejection fraction by Biplane Method of Discs of 46 %. The left ventricular diastolic function is abnormal (Grade II), consistent with elevated left ventricle filling pressures. Left ventricular segmental wall motion is abnormal, please see wall motion graphic. The right ventricular cavity size is normal. Normal right ventricular systolic function. There is moderate mitral regurgitation. There is mild tricuspid regurgitation. No pulmonary hypertension, estimated pulmonary arterial systolic pressure is 29 mmHg. ? [place] 06/17/2020:?? - Moderate 40-50% ostial stenosis of LCx. - Non obstructive coronary arteries. - Diffuse mild luminal disease. RECOMMENDATIONS AFTER DIAGNOSTIC CATHETERIZATION:? Medical management of nonobstructive CAD. Aggressive modification of atherosclerotic risk factors. Continue titration of medications for cardiomyopathy ?? TTE 06/2020: The left ventricle is moderately increased in size. Left ventricular systolic function is normal with an ejection fraction by Biplane Method of Discs of 70 %. Left ventricular segmental wall motion is normal. The left ventricular diastolic function is normal, consistent with normal left ventricle filling pressures. There is mild to moderate mitral regurgitation. Normal right ventricular systolic function. ?? Results for RYLEE CALVO ( ) as of 12/01/2021 08:46 Recent Labs Component Name 01/04/21 1318 07/25/19 0935 07/25/19 0000 CHOL 117 165 - TRIG 73 49 49 HDL 56 59 59 LDL - - 92 LDLCALC 46 92 - ? [place] Normal right lower extremity arterial physiologic study. Abnormal left lower extremity arterial physiologic study consistent with mild peripheral vascular disease measuring 0.70.9. ?? ECHO 02/07/2022 Left ventricular systolic function is normal with an ejection fraction by Biplane Method of Discs of 68 %. Left ventricular segmental wall motion is normal. There is mild concentric left ventricular hypertrophy. The left ventricular diastolic function is abnormal (Grade II), consistent with elevated left ventricle filling pressures. The right ventricular cavity size is normal. Normal right ventricular systolic function. The left atrium is mildly enlarged. There is moderate functional mitral regurgitation. No pulmonary hypertension, estimated pulmonary arterial systolic pressure is 28 mmHg/mean PA pressure of 15 mmHg. Assessment/Plan: ? # Peripheral vascular disease/CAD - no angina, claudication - high intesity statin, LDL at goal - aspirin 81 mg daily - tobacco cessation strongly incuraged - L anterior leg pain is likely MSK in origin, discussed tylenol/heat/ice, etc. May need PT for L hip pain - continue mgmt per ortho, PCP. ?? # ??Cardiomyopathy??, EF recovered with medical therapy - NYHA I - Etiology likely ??related to hypertension Hx of??combined HF with mid range EF 46% , grade II diastolic dysfunction.??EF recovered in recent echo RECS: - smoking cessation - ??coreg??12.5?BID, MRA - not on ACEi/ARB due to reported hx of anaphylaxis??to ACEi? # HTN - on coreg and HCTZ - Check BP at home and keep a log? RTC yearly, sooner PRN. DO [facility] C COMPOSITION TEACHER documented in this encounter Plan of Treatment [...] Visit Diagnoses Diagnosis Coronary artery disease involving hoonah coronary artery of hoonah heart without angina pectoris- Primary PVD (peripheral vascular disease) (HCC) Peripheral vascular disease, unspecified Tobacco abuse Tobacco use disorder Cardiomyopathy, unspecified type (HCC) Hypertension, secondary Other secondary hypertension, unspecified documented in this encounter Care Teams Veterinary Livestock Inspector Relationship Specialty Start Date End Date Ian Pollock MD [address] [facility] [address] [facility] [place] [address] PCP - General 08/21/20 05/29/23 Katina Casiano DO [address] [facility] [address] DIV OF GEN INTERNAL MEDICINE [place], [place] Resident - PCP Internal Medicine 08/10/22 05/29/23 documented as of this encounter
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
--- OUTSIDE RECORDS SUMMARY | 2024-10-30 06:49 | XMS_ITS | Encounter Summary ---
Author Organization [facility] Address [address] [place] [address] Care Team Providers Care Auto Seat Cover Installer Name Role Phone Ian Pollock MD Primary Care Provider [phone] Encounter Details Date Type Department Care Team ([facility] Contact Info) Description 01/27/2022 Orders Only [facility] - Orthopedics [address] [place] [address], [place] [address] Ga Malik MD [address] [place] [address] [place] [address] Spondylolisthesis at L4-L5 level Social History Tobacco Use Types Packs/Day Years [...] documented as of this encounter Results * XR LUMBAR SPINE 2 OR 3VW (01/27/2022 9:13 AM CDT) Anatomical Region Laterality Modality Spine [...] Ga Malik MD DIAGNOSTIC IMAGING O RDERABLES documented in this encounter Visit Diagnoses Diagnosis Spondylolisthesis at L4-L5 level- Primary Spondylolisthesis at L4-L5 level documented in this encounter Care Teams Auto Seat Cover Installer Relationship Specialty Start Date End Date Ian Pollock MD [address] [place] [address] PCP - General 08/21/20 05/29/23 documented as of this encounter
--- OUTSIDE RECORDS SUMMARY | 2024-10-30 06:49 | XMS_ITS | Encounter Summary ---
Author Organization [facility] Address [address] [place] [address] Care Team Providers Care Laboratory Technology Teacher Name Role Phone Ian Pollock MD Primary Care Provider [phone] Reason for Visit * Reason Comments Establish Care Encounter Details Date Type Department Care Team (Latest Contact Info) Description 07/29/2022 1:30 PM CDT Office Visit [facility] [address] [place] [address] Katina Casiano, DO [address] [place] [address] Chronic midline low back pain without sciatica (Primary Dx); Need for influenza vaccination; Need for prophylactic vaccination against Streptococcus pneumoniae (pneumococcus); Weight loss; Healthcare maintenance; Neuropathy; Dark stools; Dark brown urine; Major depressive disorder, single episode, severe without psychotic features (HCC); Tobacco abuse; Essential hypertension; Gynecomastia; Screen for colon cancer Social History Tobacco Use Types Packs/Day Years [...] Sign Reading Time Taken Comments Blood Pressure 109/78 07/29/2022 1:17 PM CDT Pulse 84 07/29/2022 1:17 PM CDT Temperature 36.7 ??C (98.1 ??F) 07/29/2022 1:17 PM CD T Respiratory Rate - - Oxygen Saturation 94% 07/29/2022 1:17 PM CDT Inhaled Oxygen Concentration - - Weight 103.9 kg (229 lb) 07/29/2022 1:17 PM CDT Height 175.3 cm (5' 9 ) 07/29/2022 1:17 PM CDT Body Mass Index 33.82 07/29/2022 1:17 PM CDT documented in this encounter Functional [...] this encounter Patient Instructions * Patient Instructions* Ramiro Kathialauren - 07/29/2022 1:13 PM CDT [facility] is a Patient Centered Medical Home (PCMH) recognized practice. PCM is a model of care that puts patients at the forefront of care. PCMH centers build better relationships between patients and their clinical care teams. Practices that earn this recognition have made a commitment to continuous quality improvement and a patient-centered approach to care. [facility] is committed to providing you with the best care possible. Shared decision making is a cooper component of patient-centered health care. It is a process in whichclinicians and patients work together to make decisions based on clinical evidence that balances risk and expected outcomes with patient preferences and values. How to Contact Us Between Office Visits For scheduling routine appointments, requesting refills or leaving a message for your doctor, the office phone is [phone]. You will be given options to get to the assistance you need. We have both in person and telehealth (telephone and video) appointments available. Phone lines are open from 8:00 am to 4:30 pm Monday through Monday. If you become ill and need to be seen before your next visit, we will generally be able to see you that day, although you may see someone other than your own primary care provider. Please call us at [phone], option 1, then option 1 in the morning you would like to be seen. Our fax number is [phone]. Instructions for reaching the practice after office hours For urgent concerns that cannot wait until phone lines are open on the next business day, please call [phone] to speak to the covering General Internal Medicine provider. Identify yourself as a patient in our practice and give the robot operator your doctor's name. The robot operator will contact the physician electronic systems security assessment. You can generally expect a return call within 30 minutes. Prescription Refills Contact your pharmacy to request all refills. You may also send a [employer] message for refills. Please allow a minimum of 48-72 hours for your prescription to be completed. Your pharmacy will notify you when your prescription is ready to be picked up. SCHEDULE YOUR OWN APPOINTMENT AT [facility] We are excited to announce that some [facility] appointments can now be scheduled online. If you are not able to access the type of appointment that you need using this service, our [facility] Scheduling department will be happy to continue to serve you. Use one of these options to schedule your next appointment today: Access self-scheduling options by visiting the [facility] Online Scheduling Webpage. Make an appointment by calling [facility] Central [phone] Visit our website at [email or web address] for information about our practice and an interactive health encyclopedia. documented in this encounter Progress Notes * Katina Casiano DO - 07/29/2022 5:57 PM CDT Images from the original note were not included. [facility] Medicine at [facility]: ESTABLISHED PATIENT NOTE 07/29/2022 CC: Chief Complaint Patient presents with ??? Establish Care ASSESSMENT AND PLAN: Problem List Items Addressed This Visit Cardiovascular Essential hypertension - mgmt per cards - coreg 12.5bid, spirono 50 Gastrointestinal Dark stools - R/o malignancy - Labs: CBC, iron panel - C-scope Relevant Orders ENDOSCOPY, COLON, SCREENING Neurologic Neuropathy - check b12 Relevant Orders VITAMIN B12 CK BLOOD Genitourinary Dark brown urine - DDx: Rhabdo (hip and LLE pain) vs. renal dysfunction vs. hemolysis vs. AIP (endorses some peripheral neuropathy) vs. dehydration (less-likely as drinks plenty of water) - Labs: CBC, CMP, CK, UA Relevant Orders CK BLOOD Breast Problems Gynecomastia DDx: Likely Rx (Spironolactone) vs. Obesity vs. hypogonadism vs. idiopathic - Will ask cardiology to consider switching from spironolactone to epleronone - Continue weight loss effort - If refractory, consider testosterone and TSH w/u Behavioral/Psychiatric Major depressive disorder, single episode, severe without psychotic features PHQ-9 zero today - Cont. Lamictal, Geodon, Atarax prn Tobacco abuse - 1/2 ppd x30 years - Urged cessation, has patches, gum at home - Stable lung nodules on CT, continue yearly Symptoms Weight loss - 252 > 229, 1 yr period, fluctuates - Early satiety and decreased hunger, not cooking as much - unclear etiology, need to r/o malignancy - C-scope - labs Relevant Orders CBC WITH DIFFERENTIAL COMPREHENSIVE METABOLIC PANEL IRON + TIBC + FERRITIN MAGNESIUM BLOOD URINALYSIS W/MICROSCOPIC NO CULTURE PHOSPHORUS BLOOD Other Healthcare maintenance - PCV20, flu shots today - Due for tdap, covid, zoster - due for HIV screen - tobacco cessation - c-scope for dark stools Relevant Orders CBC WITH DIFFERENTIAL COMPREHENSIVE METABOLIC PANEL IRON + TIBC + FERRITIN MAGNESIUM BLOOD URINALYSIS W/MICROSCOPIC NO CULTURE PHOSPHORUS BLOOD ENDOSCOPY, COLON, SCREENING Other Visit Diagnoses Need for influenza vaccination - Primary Relevant Orders FLU VACCINE (Flublok) QUAD RIV4 PF IM (Completed) Need for prophylactic vaccination against Streptococcus pneumoniae (pneumococcus) Relevant Orders PNEUMOCOCCAL PCV20 CONJ VAC IM (Completed) SUBJECTIVE History of Present Illness: Josafat Calvo is a 61 year old male presenting to [facility] for: establish care PMHx obesity, HTN, non-obstructive CAD (50% LCx), 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 [facility], Dr. Pollock: 10/2021: LBP, herniated disc -- incr gabapentin; weight up, low exercise Ortho, Dr. Perry: ALBA, OA, L hip trochanteric bursitis 02/2022: bursa injection, PT, recs for NSAID Cardiology, Nicole Morales: 05/2022: HF (coreg, aldactone); PAD (ASA, atorva) Urology, Florencekristian Ojeda: 12/2021: Alfuzosin (BPH), Viagra (ED) Sleep Med, Dr. Duarte: SHAYNE, fatigue 11/2021: Plan for Polysomnography then Multiple Sleep Latency Test Today, we discussed the following: Weight loss/Early satiety/decreased hunger/Dark stools: over the past couple of months, not cookingas much as before. Weight 252 > 229 over 1 year. No N/V, bloating, belching, abdominal pain. Does note dark stools last week x2-3, painless. Hx of c-scope with polyps, last 2011 or 2018. Dark urine: ~10 days duration, no urinary sxs, no decreased amount, drinks plenty of water. No flank pain. Recent illness: 3 days last week. Chills, fatigue, overall felt poor. Denies URI sxs or diarrhea. Unclear if correlated with dark stool L hip pain: still present, gabapentin not working well. injections previously worked now with minimal relief. Point tenderness. Still stretching. Tylenol 1500mg x1 daily. No nsaids. Gynecomastia: likely in setting of spironolactone use, but could be body habitus and age as well. Will ask if cardiology can switch medication Sleep Study: Unable to get transportation in evening. Will try to uber. HM: received flu, PCV20; down to 0.5ppd tobacco and 2-3 beers/wk Review of Systems All other systems reviewed and are negative. Past Med/Surg/Fam/Soc History: Reviewed and updated in [facility] History Allergies & Medications: Reviewed and updated in [facility] Allergies & Medications OBJECTIVE VITALS BP 109/78 Pulse 84 Temp 98.1 ??F (36.7 ??C) (Oral) Ht 5' 9 (1.753 m) Wt 229 lb (103.9 kg) SpO2 94% Physical Exam Vitals reviewed. Constitutional: General: He is not in acute distress. Appearance: Normal appearance. He is obese. He is not ill-appearing or diaphoretic. HENT: Head: Normocephalic and atraumatic. Eyes: General: No scleral icterus. Extraocular Movements: Extraocular movements intact. Pupils: Pupils are equal, round, and reactive to light. Cardiovascular: Rate and Rhythm: Normal rate and regular rhythm. Pulses: Normal pulses. Heart sounds: No murmur heard. Pulmonary: Effort: Pulmonary effort is normal. No respiratory distress. Breath sounds: No wheezing. Abdominal: General: Abdomen is flat. Palpations: Abdomen is soft. Tenderness: There is no abdominal tenderness. There is no right CVA tenderness or left CVA tenderness. Musculoskeletal: General: Tenderness (L hip & L IT band) present. Right lower leg: No edema. Left lower leg: No edema. Skin: General: Skin is warm and dry. Findings: No lesion. Neurological: General: No focal deficit present. Mental Status: He is alert and oriented to person, place, and time. Psychiatric: Mood and Affect: Mood normal. Thought Content: Thought content normal. Lab Data: Reviewed, pertinent for: CBC: Recent Labs Component Name 11/08/21 1021 06/17/20 0901 07/25/19 0935 WBC 6.9 6.5 5.4 HGB 14.6 13.3* 13.0* HCT 45.1 40.9 39.7 PLTCOUNT 222 227 254 BMP: Recent Labs Component Name 01/04/21 1318 06/17/20 0901 04/23/20 1218 09/19/19 0917 SODIUM 136 - 138 136 POTASSIUM 4.2 3.9 4.2 4.3 CHLORIDE 102 - 104 104 CO2 24 21* 24 22 BUN 9 9 9 8 CREATININE 0.87 0.8 1.09 0.90 GLUCOSE 94 91 88 114* CALCIUM 9.5 9.3 10.0 9.8 Coagulation: Recent Labs Component Name 06/17/20 0901 PT 13.6 INR 1.1 Hepatic function: Recent Labs Component Name 07/25/19 0935 07/25/19 0000 ALBUMIN 4.1 - ALKPHOS 108 - YTR4QCHB - 108 ALT 20 20* AST 17 17 TBIL 0.3 - TPROT 6.7 - TSH: Recent Labs Component Name 09/19/19 0917 TSH 0.66 Recent Labs Component Name 01/18/22 0812 09/29/20 0000 NITRITE neg neg Recent Labs Lab 01/04/21 1318 07/25/19 0935 CHOL 117 165 HDL 56 59 TRIG 73 49 Imaging/Diagnostic testing: Reviewed, pertinent for: XR LUMBAR SPINE 2 OR 3VW Result Date: 01/27/2022 IMPRESSION: Degenerative changes, severe at L5-S1. This report was electronically signed by MD CURTIS on 01/27/2022 10:04 AM . XR HIP LEFT 2VW OR MORE Result Date: 01/27/2022 IMPRESSION: Mild degenerative change. This report was electronically signed by ABIGAIL DEE MD on 01/27/2022 10:[address] LUNG SCREEN LOW DOSE Result Date: 02/17/2022 Impression: 1.Pulmonary nodule in the right lower [...] and/or tissue sampling is recommended) S - Other(clinically significant or potentially clinically significant findings (non-lung cancer) C - Prior Lung Cancer (modifier for patients with a prior diagnosis of lung cancer who return to screening) Report drafted by Yoel Bro (resident) I, Dr. RANDA HALE have personally reviewed and interpreted this examination/study. This report was electronically signed by RANDA HALE on 02/17/2022 3:43 PM . PREVENTIVE CARE/HEALTH MAINTENANCE Immunization Status Notes Tdap q10yr To be addressed DUE NOW PPSV23 -healthy, >65: >1yr after PCV13 -<65 if heart, lung, liver dz, DM, smoke, or EtOH -8wks after PCV13 if given <65yo Complete n/a PCV13/15/20 -healthy, >65: first -<65 if HIV, malig, asplenia, csf, cochlear: first Complete Complete (PCV20) Zoster (2x dose) >50, all pts unless immunocomp. To be addressed DUE NOW HPV 13-26yo, all pts Not recommended: Age COVID-19 To be addressed DUE NOW Health Screening Status Notes Colorectal Cancer 45-75 q10y Ordered Dark stools on ROS; prior polyps in 2011 Lung Cancer 50-80 if 20py + current/quit w/i 15y Actively managed problem 2x RLL nodules, stable - DUE 2022 (yearly) HIV 15-65 once, all pts To be addressed DUE NOW HEP C 18-79 once, all pts Complete NEG, 2019 Diabetes 35-70, all pts; younger if overweight/high risk Complete A1c 5.7 (2019) Lipids (* high risk) M: 25*/35 (q5) W: 35*/45 (q5) Complete WNL Depression Complete PHQ-2:PHQ2 TOTAL SCORE: 0 PHQ-9:PHQ9 TOTAL SCORE: 0 Statin in CVD/ASA Primary Prevention: Actively managed problem Statin: 40-75 if 1+ RF (HLD, HTN, DM, smoke) PLUS >10% ASCVD risk Atorva 40 in setting of CHF ASA: 50-59 with >/= 10% ASCVD, 10y life expectancy, compliance for 10yrs ASA 81 The ASCVD Risk score (Kalin WHITE Jr., et al., 2013) failed to calculate for the following reasons: The valid total cholesterol range is 130 to 320 mg/dL Male Specific Prostate Cancer Screening Discussion: Complete 40 if high risk (black, Fhx); 50 if avg. risk; Uro if PSA >4 AAA Screening: Not recommended: Age 65-75 if EVER smoked ----- Return to Clinic in 4 months Patient discussed with attending physician, Dr. Pollock. Katina Casiano DO, MS Internal Medicine PGY-3 Pager: [phone] 07/29/22 6:53 PM Associated attestation - Ian Pollock MD - 07/30/2022 8:10 PM CDT Attending Physician Attestation I saw and examined the patient with the resident, and I agree with the resident's history, physicalexam, and assessment and plan. Date of Service: 07/29/2022 Ian Pollock MD * Ian Pollock MD - 07/29/2022 2:02 PM CDT Follow up visit Chronic back pain DJD spine and hip Gabapentin. Had trouble with transportation for PT Asks about weight loss. Colonoscopy in 2014 and 2011 with polyps. BP 109/78 Pulse 84 Temp 98.1 ??F (36.7 ??C) (Oral) Ht 5' 9 (1.753 m) Wt 229 lb (103.9 kg) SpO2 94% Wt Readings from Last 3 Encounters: 07/29/22 229 lb (103.9 kg) 06/29/22 224 lb (101.6 kg) 03/30/22 234 lb (106.1 kg) Tightness in lumbar paraspinous muscles Negative seated slr. Good rom of hips Crepitations in knees. Chronic midline low back pain without sciatica Need for influenza vaccination - Plan: FLU VACCINE (Flublok) QUAD RIV4 PF IM Need for prophylactic vaccination against Streptococcus pneumoniae (pneumococcus) - Plan: PNEUMOCOCCAL PCV20 CONJ VAC IM Weight loss - Plan: CBC WITH DIFFERENTIAL, COMPREHENSIVE METABOLIC PANEL, IRON + TIBC + FERRITIN, MAGNESIUM BLOOD, URINALYSIS W/MICROSCOPIC NO CULTURE, PHOSPHORUS BLOOD Healthcare maintenance Neuropathy - Plan: VITAMIN B12, CK BLOOD Dark stools - Plan: ENDOSCOPY, COLON, SCREENING Dark brown urine - Plan: CK BLOOD Major depressive disorder, single episode, severe without psychotic features Tobacco abuse Essential hypertension Gynecomastia Screen for colon cancer - Plan: ENDOSCOPY, COLON, SCREENING documented in this encounter Plan of Treatment [...] Procedure Name Priority Date/Time Associated Diagnosis Comments URINALYSIS W/MICROSCOPIC NO CULTURE Routine 08/09/2022 1:47 PM CDT Weight loss IRON + TIBC + FERRITIN Routine 1:47 PM CDT Weight loss CBC W AUTO DIFFERENTIAL Routine 08/09/2022 1:47 PM CDT Weight loss COMPREHENSIVE METABOLIC PANEL Routine 08/09/2022 1:47 PM CDT Weight loss MAGNESIUM BLOOD Routine 08/09/2022 1:47 PM CDT Weight loss documented in this encounter Results * (ABNORMAL) URINALYSIS W/MICROSCOPIC NO CULTURE (08/09/2022 1:47 PM CDT) Color UA YELLOW YELLOW [facility] Appearance CLOUDY(A) CLEAR [facility] Specific [place] UA 1.006 1.001 - 1.035 [facility] pH [...] SEEN /LPF [facility] Comment: Test Performed at: [facility] [address] [place], [place] ??[phone] PRUDENCIO ALDANA DO,MPH Urine URINE SPECIMEN OBTAINED BY CLEAN CATCH PROCEDURE / Unknown 08/09/2022 1:47 PM CDT 08/09/2022 1:50 PM CDT Ian Pollock MD LAB - URINALYSIS ORD ERABLES Performing Organization Address [facility] Co de Phone Number [facility] [phone] [place] [phone] * MAGNESIUM BLOOD (08/09/2022 1:47 PM CDT) Magnesium 1.9 1.5 - 2.5 mg/dL [facility] Comment: Test Performed at: [facility] [id number] [place], [place] ??[phone] PRUDENCIO ALDANA DO,MPH Blood BLOOD SPECIMEN / Unknown 08/09/2022 1:47 PM CDT 08/09/2022 1:50 PM CDT Ian Pollock MD LAB - CHEMISTRY ORDAdolfo ELIAS Performing Organization Address [facility] de Phone Number [facility] [address] [place] [address] * (ABNORMAL) IRON + TIBC + FERRITIN (08/09/2022 1:47 PM CDT) Iron 132 50 - 180 mcg/dL [facility] TIBC 272 250 - 425 mcg/dL (calc) [facility] % Saturation 49(H) 20 - 48 % (calc) [facility] Ferritin 209 24 - 380 ng/mL [facility] Comment: Test Performed at: [facility] [address] [place], [place] ??[phone] PRUDENCIO ALDANA DO,MPH Blood BLOOD SPECIMEN / Unknown 08/09/2022 1:47 PM CDT 08/09/2022 1:50 PM CDT Ian Pollock MD LAB - CHEMISTRY JANAE ELIAS Performing Organization Address [facility] Co de Phone Number [facility] [address] [place] [address] * (ABNORMAL) COMPREHENSIVE METABOLIC PANEL (08/09/2022 1:47 [...] 46 U/L [facility] Comment: Test Performed at: [facility] [address] [place], [place] ??[phone] PRUDENCIO ALDANA DO,MPH Blood BLOOD SPECIMEN / Unknown 08/09/2022 1:47 PM CDT 08/09/2022 1:50 PM CDT Ian Pollock MD LAB - CHEMISTRY JANAE ELIAS [facility] Organization Address City/State/ZIP Co de Phone Number [facility] [phone] [place] [address] * (ABNORMAL) CBC WITH DIFFERENTIAL (08/09/2022 1:47 PM CDT) White Blood Cell Count 6.7 3.8 - [...] 1.0 % [facility] Comment: Test Performed at: [facility] ??[phone] PRUDENCIO ALDANA DO,MPH Blood BLOOD SPECIMEN / Unknown 08/09/2022 1:47 PM CDT 08/09/2022 1:50 PM CDT Ian Pollock MD LAB - HEMATOLOGY ORD ERABLES [facility] [address] [place] [address] documented in this encounter Visit Diagnoses Diagnosis Chronic midline low back pain without sciatica- Primary Need for influenza vaccination Need for prophylactic vaccination and inoculation against influenza Need for prophylactic vaccination against Streptococcus pneumoniae (pneumococcus) Need for prophylactic vaccination against streptococcus pneumoniae (pneumococcus) Weight loss Loss of weight Healthcare maintenance Routine general medical examination at a health care facility Neuropathy Mononeuritis of unspecified site Dark stools Nonspecific abnormal finding in stool contents Dark brown urine Major depressive disorder, single episode, severe without psychotic features (HCC) Major depressive disorder, single episode, severe, without mention of psychotic behavior Tobacco abuse Tobacco use disorder Essential hypertension Gynecomastia Hypertrophy of breast Screen for colon cancer Special screening for malignant neoplasms, colon * Assessment & Plan Note - Katina Casiano DO - 07/29/2022 6:45 PM CDT Associated Problem(s): Gynecomastia DDx: Likely Rx (Spironolactone) vs. Obesity vs. hypogonadism vs. idiopathic - Will ask cardiology to consider switching from spironolactone to epleronone - Continue weight loss effort - If refractory, consider testosterone and TSH w/u * Assessment & Plan Note - Katina Casiano DO - 07/29/2022 6:41 PM CDT Associated Problem(s): Dark brown urine (Resolved 01/04/2023) - DDx: Rhabdo (hip and LLE pain) vs. renal dysfunction vs. hemolysis vs. AIP (endorses some peripheral neuropathy) vs. dehydration (less-likely as drinks plenty of water) - Labs: CBC, CMP, CK, UA * Assessment & Plan Note - Katina Casiano DO - 07/29/2022 6:40 PM CDT Associated Problem(s): Dark stools (Resolved 01/04/2023) - R/o malignancy - Labs: CBC, iron panel - C-scope * Assessment & Plan Note - Katina Casiano DO - 07/29/2022 6:40 PM CDT Associated Problem(s): Neuropathy - check b12 * Assessment & Plan Note - Katina Casiano DO - 07/29/2022 6:39 PM CDT Associated Problem(s): Healthcare maintenance - PCV20, flu shots today - Due for tdap, covid, zoster - due for HIV screen - tobacco cessation - c-scope for dark stools * Assessment & Plan Note - Katina Casiano DO - 07/29/2022 6:38 PM CDT Associated Problem(s): Weight loss - 252 > 229, 1 yr period, fluctuates - Early satiety and decreased hunger, not cooking as much - unclear etiology, need to r/o malignancy - C-scope - labs * Assessment & Plan Note - Katina Casiano DO - 07/29/2022 6:36 PM CDT Associated Problem(s): Essential hypertension - mgmt per cards - coreg 12.5bid, spirono 50 * Assessment & Plan Note - Katina Casiano DO - 07/29/2022 6:35 PM CDT Associated Problem(s): Tobacco abuse - 1/2 ppd x30 years - Urged cessation, has patches, gum at home - Stable lung nodules on CT, continue yearly * Assessment & Plan Note - Katina Casiano DO - 07/29/2022 6:34 PM CDT Associated Problem(s): Major depressive disorder, single episode, severe without psychotic features(HCC) PHQ-9 zero today - Cont. Lamictal, Geodon, Atarax prn documented in this encounter Care Teams Laboratory Technology Teacher Relationship Specialty Start Date End Date Ian Pollock MD [address] [place] [address] PCP - General 08/21/20 05/29/23 documented as of this encounter
--- OUTSIDE RECORDS SUMMARY | 2024-10-30 06:49 | XMS_ITS | Encounter Summary ---
Author Organization [facility] Address [address] [place] [address] Care Team Providers Care Coating Technician Name Role Phone Ian Pollock MD Primary Care Provider Katina Casiano DO Unavailable [phone] Xavi ACOSTA MD, Jameel Gaviria Primary Care Provider + Katina Casiano DO Unavailable [phone] Tracey Ang PA Unavailable [phone] Belkis Angel SUPPLY ROOM CLERK-CYTOGENETICS TECHNOLOGIST Primary Care Provider + Natalie Baum Primary Care Provider [phone] Reason for Visit * Reason Onset Date Comments Cardiac Rehab 02/23/2022 Encounter Details Date Type Department Care Team (Late st Contact Info) Description 02/23/2022 Telephone [facility] [address] [place] [address] Rama Lagos, associate teacher Social History Tobacco Use Types Packs/Day Years [...] on filedocumented in this encounter Care Teams Coating Technician Relationship Specialty Start Date End Date Ian Pollock MD [address] [facility] [place] [address] PCP - General 08/21/20 05/29/23 aJmeel Hurley III, MD [address] [facility] [place] [address] PCP - General Internal Medicine 06/05/23 08/28/23 Belkis Angel, SUPPLY ROOM CLERK-CYTOGENETICS TECHNOLOGIST [address] [facility] [address] [place] [address] PCP - General Nurse Practitioner 08/29/23 05/05/24 Natalie Baum [address] [place] [address] PCP - General 05/06/24 Katina Casiano DO [address] [facility] [address] [facility] [place], [place] Resident - PCP Internal Medicine 08/10/22 05/29/23 Katina Casiano DO [address] [facility] [address] [facility] [place], [place] Hospitalist 06/05/23 Tracey Ang PA [address] [facility] [address] [facility] [place] [address] Physician Editor Publications 08/15/23 documented as of this encounter
--- OUTSIDE RECORDS SUMMARY | 2024-10-30 06:49 | XMS_ITS | Encounter Summary ---
Author Organization [facility] Address [address] [place] [address] Care Team Providers Care Portal Developer Name Role Phone Ian Pollock MD Primary Care Provider [phone] Reason for Visit * Reason Onset Date Comments Refill Request 01/19/2022 MEDICATION REFILL 01/21/2022 Encounter Details Date Type Department Care Team (Late st Contact Info) Description 01/19/2022 Telephone [facility] Cardiology [address] [facility] [address] [place], [place] [id number] Maxine Stroud RN Refill Request; MEDICATION REFILL Social History Tobacco Use Types [...] Miscellaneous Notes * Telephone Encounter - Maxine Stroud RN - 01/21/2022 3:57 PM CDT Received call from pharmacy wanting clarification on day supply for nicotine supplement Returned call and spoke with pharmacy staff. Informed them of usage for 1 gum/lozenge every 1-2 hours. * Telephone Encounter - Maxine Stroud RN - 01/19/2022 10:54 AM CDT Patient called and left message stating that he was just seen but is wanting a prescription for nicotine. Returned call to patient and he states that he would like nicotine gum or lozenge sent to [facility] on [address] Informed him message would be sent to provider. Patient in agreement with plan, no otherquestions. documented in this encounter Plan of Treatment [...] on filedocumented in this encounter Care Teams Portal Developer Relationship Specialty Start Date End Date Ian Pollock MD [address] [place] [address] PCP - General 08/21/20 05/29/23 documented as of this encounter
--- OUTSIDE RECORDS SUMMARY | 2024-10-30 06:49 | XMS_ITS | Encounter Summary ---
Author Organization [facility] Address [address] [place] [address] Care Team Providers Care Chip Mucker Name Role Phone Ian Pollock MD Primary Care Provider [phone] Katina Casiano DO Unavailable [phone] Reason for Visit * Reason Onset Date Comments Results 08/10/2022 Encounter Details Date Type Department Care Team (Late st Contact Info) Description 08/10/2022 Telephone [facility] General Internal Medicine [address] [facility], [facility] [place] [address] Katina Casiano, [address] [place] [address] Results Social History Tobacco Use Types Packs/Day [...] encounter Miscellaneous Notes * Telephone Encounter - Eufemia Pintojusten Alonso - 08/10/2022 4:35 PM CDT Patient would like to discuss lab results completed on 08/09/22. Noted that glucose is a bit high at 112, and K+ 3.4. He is also inquiring about changing his blood pressure medication, Spirolactone, which he has been off of since his last office visit with you on 07/29/22. You were going to consult Cardiology on a medication change. (Refill request for Kenalog cream in separate refill encounter). documented in this encounter Plan of Treatment [...] on filedocumented in this encounter Care Teams Chip Mucker Relationship Specialty Start Date End Date Ian Pollock MD [address] [facility] [place] [address] PCP - General 08/21/20 05/29/23 Katina Casiano DO [address] [facility] INTERNAL MEDICINE [place], [place] Resident - PCP Internal Medicine 08/10/22 05/29/23 documented as of this encounter
--- OUTSIDE RECORDS SUMMARY | 2024-10-30 06:49 | XMS_ITS | Encounter Summary ---
Author Organization [facility] Address [address] [facility] [place] [address] Care Team Providers Care Supervisor Accounting Clerks Name Role Phone Ian Pollock MD Primary Care Provider [phone] Encounter Details Date Type Department Care Team (Latest Contact Info) Description 02/17/2022 Travel Social History Tobacco Use Types Packs/Day [...] on filedocumented in this encounter Care Teams Supervisor Accounting Clerks Relationship Specialty Start Date End Date Ian Pollock MD [address] [place] [address] PCP - General 08/21/20 05/29/23 documented as of this encounter
--- OUTSIDE RECORDS SUMMARY | 2024-10-30 06:49 | XMS_ITS | Encounter Summary ---
Author Organization [facility] Address [address] [place] [address] Care Team Providers Care Insurance Broker Name Role Phone Ian Pollock MD Primary Care Provider Encounter Details Date Type Department Care Team ([facility] Contact Info) Description 02/07/2022 8:30 AM CDT Cardiac Rehab [facility] [address] [place] [address] Heart failure with reduced ejection fraction (HCC) [...] as of this encounter Progress Notes * TeresaLudivina berman - 02/07/2022 10:18 AM CDT See Daily Exercise Log in media. ECG Interpretation SR with occasional PVC. Artifact noted on telemetry with exercise. Patient pre treated albuterol prior to exercise this morn in rehab, L hip pain. Patient sees orthopedic 02/14. Patient is in contact with Chela Mullins [facility] smoking cessation program. Patient was able to tolerate today's exercise well, no complaints of chest pain or shortness of breath upon exertion. VSS upon discharge from Cardiac Rehab. Education handout and discussion given on Strength and Resistance Training per [employer]. Patient demonstrates good understanding of this topic. Plan for next visit scheduled for 02/16 is to continue to increase as tolerated by RPE and THR. Ludivina Moore Cardiac Rehabilitaiton Editor House Organ [email or web address] documented in this encounter Plan of Treatment [...] failure with reduced ejection fraction (HCC)- Primary documented in this encounter Care Teams Insurance Broker Relationship Specialty Start Date End Date Ian Pollock MD [address] [place] [address] PCP - General 08/21/20 05/29/23 documented as of this encounter
--- OUTSIDE RECORDS SUMMARY | 2024-10-30 06:49 | XMS_ITS | Encounter Summary ---
Author Organization [facility] Address [address] [place] [address] Care Team Providers Care Finishing Trimmer Name Role Phone Ian Pollock MD Primary Care Provider [phone] Encounter Details Date Type Department Care Team ([facility] st Contact Info) Description 01/27/2022 9:07 AM CDT - 01/27/2022 9:48 AM CDT Hospital Encounter [facility] [address] [facility] [place] [address] Ga Malik MD [address] [facility] [place] [address] Discharge Disposition: Home or Self Care Social [...] Procedure Name Priority Date/Time Associated Diagnosis Comments XR LUMBAR SPINE 2 OR 3VW Routine 01/27/2022 9:13 AM CDT Spondylolisthesis at L4-L5 level documented in this encounter Results * XR LUMBAR SPINE [...] encounter Visit Diagnoses Diagnosis Spondylolisthesis at L4-L5 level documented in this encounter Care Teams Finishing Trimmer Relationship Specialty Start Date End Date Ian Pollock MD [address] [facility] [place] [address] PCP - General 08/21/20 05/29/23 documented as of this encounter
--- OUTSIDE RECORDS SUMMARY | 2024-10-30 06:49 | XMS_ITS | Encounter Summary ---
Author Organization [facility] Address [address] [place] [address] Care Team Providers Care Sewer Pipe Cleaner Name Role Phone Ian Pollock MD Primary Care Provider [phone] Reason for Visit * Reason Onset Date Comments Order 04/14/2022 Encounter Details Date Type Department Care Team ([facility] st Contact Info) Description 04/14/2022 Telephone [facility] [address] [facility] [address] [place] [address] Maxine Stroud, ALYX Order Social History Tobacco Use Types Packs/Day [...] Telephone Encounter - Maxine Stroud RN - 04/19/2022 4:01 PM CDT This was signed and faxed to [place], received confirmation This was scanned into chart Attempted to reach patient, left message stating order was faxed and should receive call from them soon, requested return call with questions, nurse number provided. * Telephone Encounter - Maxine Stroud RN - 04/15/2022 2:52 PM CDT Received fax from [facility] requesting more information for cardiac rehab. Printed last visit note and face sheet. Will put in folder and give to provider to sign when in clinic next. * Telephone Encounter - Maxine Stroud RN - 04/15/2022 2:51 PM CDT Patient called and left message stating that he is only wanting to go to [place] for cardiac rehab, still have banquet line cook here. Attempted to reach patient, left message stating banquet line cook will still be here, only sent cardiacrehab to [place] and to return call with questions, nurse number provided. * Telephone Encounter - Maxine Stroud RN - 04/14/2022 4:30 PM CDT Patient called and left message stating that he would like to do cardiac rehab at [facility]. Printed referral from 01/19 and faxed to [facility] at [phone], received confirmation. Called and spoke with patient, informed him of above. Informed him message would be sent to cardiacrehab team to make aware as well. He states that he is only going to [place] as it is closer to home. Tell them thank you, you all are so nice documented in this encounter Plan of Treatment [...] on filedocumented in this encounter Care Teams Sewer Pipe Cleaner Relationship Specialty Start Date End Date Ian Pollock MD [address] [place] [address] PCP - General 08/21/20 05/29/23 documented as of this encounter
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
--- OUTSIDE RECORDS SUMMARY | 2024-10-30 06:49 | XMS_ITS | Encounter Summary ---
Author Organization [facility] Address [address] [place] [address] Care Team Providers Care Hay Buckler Name Role Phone Ian Pollock MD Primary Care Provider [phone] Reason for Visit * Reason Onset Date Comments Med Question 03/15/2022 Encounter Details Date Type Department Care Team ([facility] Contact Info) Description 03/15/2022 Telephone [facility] [address] [facility] [address] [place] [address] Maxine Stroud, RN Med Question Social History Tobacco Use Types Packs/Day Years [...] Telephone Encounter - Maxine Stroud RN - 03/15/2022 9:42 AM CDT Patient called and left message stating that he wanted to check with us to make sure he can start amedication that his orthopedic provider is recommending. Returned call to patient and he states that the orthopedic provider - Dr. Perry would like him to start an antiinflammatory. He was not able to state medication name. Informed him blurb writer will send message to provider to advise and return call will be placed with update. Patient in agreement with plan. Patient saw Dr. Perry yesterday 03/14, note not completed. documented in this encounter Plan of Treatment [...] on filedocumented in this encounter Care Teams Hay Buckler Relationship Specialty Start Date End Date Ian Pollock MD [address] [place] [address] PCP - General 08/21/20 05/29/23 documented as of this encounter
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
--- OUTSIDE RECORDS SUMMARY | 2024-10-30 06:49 | XMS_ITS | Encounter Summary ---
Author Organization [facility] Address [address] [place] [address] Care Team Providers Care Trout Farmer Name Role Phone Ian Pollock MD Primary Care Provider Katina Casiano DO Unavailable [phone] Xavi ACOSTA MD, Jameel Gaviria Primary Care Provider + Katina Casiano DO Unavailable [phone] Tracey Ang PA Unavailable [phone] Belkis Angel HASSOCK MAKER-DENTAL OFFICE ASSISTANT Primary Care Provider + Natalie Baum Primary Care Provider [phone] Encounter Details Date Type Department Care Team (Late st Contact Info) Description 03/03/2022 Telephone [facility] [address] [place] [address] Alvarez Duarte MD [address] [address] Social History Tobacco Use Types Packs/Day Years [...] encounter Miscellaneous Notes * Telephone Encounter - Sunita Samuel - 03/03/2022 8:40 AM CDT Current Provider name:Dr. Duarte Reason for call: Pt requested to cancel sleep study appt scheduledfor 03/07/22 at 8:00 pm. He is having transportation issues med [employer] does not run that late. He will call back to schedule when he can figure out his transportation. Please cancel this appt for him. Patient Call Back number: [phone] documented in this encounter Plan of Treatment Not on file documented as of this encounter Goals Goal Patient Goal Type Associated Problems Recent Progress Patient-Stated? Author Mobility General No Stephanie Gallgeos RN Note: Expected end date: *10/30/2019 The goal is to maintain or improve your mobility at the optimum level for you. Interventions: documented as of this encounter Visit Diagnoses Not on filedocumented in this encounter Care Teams Trout Farmer Relationship Specialty Start Date End Date Ian Pollock MD [address] [facility] [address] PCP - General 08/21/20 05/29/23 Jameel Hurley III, MD [address] [facility] [address] PCP - General Internal Medicine 06/05/23 08/28/23 Belkis Angel APRN-DENTAL OFFICE ASSISTANT [address] [facility] [address] [place] [address] PCP - General Nurse Practitioner 08/29/23 05/05/24 Natalie Baum [address] [place] [address] PCP - General 05/06/24 Katina Casiano DO [address] [facility] [address] DIV OF GEN INTERNAL MEDICINE [place], [place] Resident - PCP Internal Medicine 08/10/22 05/29/23 Katina Casiano DO [address] [facility] [address] DIV OF GEN INTERNAL MEDICINE [place], [place] Hospitalist 06/05/23 Tracey Ang PA [address] [facility] [address] [place] [address] Physician Insurance Legal Assistant 08/15/23 documented as of this encounter
--- OUTSIDE RECORDS SUMMARY | 2024-10-30 06:49 | XMS_ITS | Encounter Summary ---
Author Organization [facility] Address [address] [place] [address] Care Team Providers Care Management Expert Name Role Phone Ian Pollock MD Primary Care Provider [phone] Katina Casiano DO Unavailable [phone] Reason for Visit * Reason Onset Date Comments Pre-op Instructions 12/01/2022 Encounter Details Date Type Department Care Team (Late st Contact Info) Description 12/01/2022 Patient Outreach [facility] [address] [place] [id number] Jenn Rodriguez RN Pre-op Instructions Social History Tobacco Use Types Packs/Day Years [...] encounter Miscellaneous Notes * Telephone Encounter - Jenn Rodriguez RN - 12/01/2022 12:08 PM TRACK HOE OPERATOR Pt confirmed procedure appointment for colonoscopy with dulcolax/miralax prep on 12/07/2022 at 10am.Verbalized understanding of prep instructions including NPO after midnight. Will arrive 1 hour prior to procedure time. Has snaker tractor driver (nephew) and has no further questions at this time. This pt is not taking blood thinning medications. K HOE OPERATOR documented in this encounter Plan of Treatment [...] on filedocumented in this encounter Care Teams Management Expert Relationship Specialty Start Date End Date Ian Pollock MD [address] [place] [address] PCP - General 08/21/20 05/29/23 Katina Casiano DO [address] DIV OF GEN INTERNAL MEDICINE [place], [place] Resident - PCP Internal Medicine 08/10/22 05/29/23 documented as of this encounter
--- OUTSIDE RECORDS SUMMARY | 2024-10-30 06:49 | XMS_ITS | Encounter Summary ---
Author Organization [facility] Address [address] [facility] [place] [address] Care Team Providers Care Chief Mechanical Officer Name Role Phone Ian Pollock MD Primary Care Provider Reason for Referral * Radiology Services (Routine) - Closed Specialty Diagnoses / Procedures Referred By Contac t Referred To Contact CT Scan Diagnoses Pulmonary nodule Procedures CT CHEST WO CONTRAST Jeffrey Oliveira MD [address] [facility] [address] DIV OF PULMONARY/[place] [address] [facility] [address] [place] [address] Referral ID Status Reason Start Date Expiration Date Visits Re quested Visits Authorized [id number] Closed 01/25/2023 01/25/2024 1 1 Reason for Visit * Reason Onset Date Comments Results 02/21/2022 Encounter Details Date Type Department Care Team (Late st Contact Info) Description 02/21/2022 Telephone [facility] [address] [place] [id number] Agnieszka Haas MD [address] [place] [address] Results Social History Tobacco Use Types Packs/Day [...] encounter Miscellaneous Notes * Telephone Encounter - Agnieszka Haas MD - 02/21/2022 7:31 PM CDT Discussed the results of the low dose CT scan with the patient and answered all his questions. Will order repeat CT scan in 1 year. Agnieszka Haas MD Pulmonary / Critical Care Fellow Division of Pulmonary, Critical Care, & Sleep Medicine [facility] Beeper #[phone] documented in this encounter Plan of Treatment Not on file documented as of this encounter Goals Goal Patient Goal Type Associated Problems Recent Progress Patient-Stated? Author Mobility General No Stephanie Gallegos, RN Note: Expected end date: *10/30/2019 The goal is to maintain or improve your mobility at the optimum level for you. Interventions: documented as of this encounter Results * CT CHEST WO [...] Bernard MD. > Dictated by David Bernard (Department Store Door Greeter) 01/31/2023 11:34 AM Bimal Duong MD have personally reviewed and interpreted this examination/study. > Interpreting Provider: Bimal Lozano MD on 01/31/2023 11:37 AM Narrative 01/31/2023 11:37 AM CDT PROCEDURE: ??CT CHEST WO CONTRAST, DATE/TIME OF EXAM: ??01/31/2023 7:47 AM, LOCATION ??[facility] INDICATION: R91.1: Pulmonary nodule ADDITIONAL CLINICAL INFORMATION: [...] DATE/TIME OF EXAM: 01/31/2023 7:47 AM, LOCATION [facility] INDICATION: R91.1: Pulmonary nodule ADDITIONAL CLINICAL INFORMATION: [...] Bernard MD. > Dictated by David Bernard (Department Store Door Greeter) 01/31/2023 11:34 AM I, Bimal Lozano MD have personally reviewed and interpreted this examination/study. > Interpreting Provider: Bimal Lozano MD on 01/31/2023 11:37 AM Jeffrey Oliveira MD CT ORDERABLES documented in this encounter Visit Diagnoses Diagnosis Pulmonary nodule- Primary Solitary pulmonary nodule Pulmonary nodule Solitary pulmonary nodule documented in this encounter Care Teams Chief Mechanical Officer Relationship Specialty Start Date End Date Ian Pollock MD [address] [place] [address] PCP - General 08/21/20 05/29/23 documented as of this encounter
--- OUTSIDE RECORDS SUMMARY | 2024-10-30 06:49 | XMS_ITS | Encounter Summary ---
Author Organization [facility] [employer] Address [address] [place] [address] Care Team Providers Care Craniologist Name Role Phone Ian Pollock MD Primary Care Provider [phone] Katina Casiano DO Unavailable [phone] Reason for Visit * Auth/Cert (Routine) Specialty Diagnoses / Procedures Referred By Florentino t Referred To Contact Diagnoses Dark stools Colon cancer screening Procedures COLONOSCOPY SCREEN Referral ID Status Reason Start Date Expiration Date Visits Re quested Visits Authorized [id number] 1 1 Encounter Details Date Type Department Care Team (Late st Contact Info) Description 12/07/2022 9:45 AM INFORMIX DEVELOPER - 12/07/2022 10:30 AM [facility] Surgery [facility] [address] [place] [address] Rae Mccormick MD [address] [place] [address] COLONOSCOPY SCREEN Surgery Details Date/Time Status Location OR Service Patient Class Case Class Case Type Trauma Case? 12/07/2022 9:45 AM Posted [facility] Endoscopy ENDO 1 Gastroenterology Surgery Day Care Elective > 5 days Panel 1 Procedure LRB Anes Op Region Wound Class Comments COLONOSCOPY SCREEN N/A MAC NA A ascending colon polyps x4 - cold snare x4 Surgeon Surgeon Role Service Panel Rae Mccormick MD Primary Gastr oenterology 1 documented in this encounter Social History Tobacco [...] Sign Reading Time Taken Comments Blood Pressure 151/106 12/07/2022 10:00 AM INFORMIX DEVELOPER Pulse 89 12/07/2022 10:00 AM INFORMIX DEVELOPER Temperature 37.3 ??C (99.1 ??F) 12/07/2022 9:36 AM CS T Respiratory Rate 28 12/07/2022 10:00 AM INFORMIX DEVELOPER Oxygen Saturation 99% 12/07/2022 10:00 AM INFORMIX DEVELOPER Inhaled Oxygen Concentration - - Weight 106.1 kg (234 lb) 12/07/2022 9:22 AM INFORMIX DEVELOPER Height 175.3 cm (5' 9 ) 12/07/2022 9:22 AM INFORMIX DEVELOPER Body Mass Index 34.56 12/07/2022 9:22 AM INFORMIX DEVELOPER documented in this encounter Functional Status Functional [...] No 12/07/2022 documented as of this encounter Discharge Instructions * Discharge Instructions* Karin Acosta, RN - 12/07/2022 9:25 AM INFORMIX DEVELOPER Images from the original note were not included. Colonoscopy WHAT YOU NEED TO KNOW: A colonoscopy is a procedure to examine the inside of your colon (intestine) with a scope. Polyps or tissue growths may have been removed during your colonoscopy. It is normal to feel bloated and to have some abdominal discomfort. You should be passing gas. If you have hemorrhoids or you had polypsremoved, you may have a small amount of bleeding. DISCHARGE INSTRUCTIONS: Seek care immediately if: You have a large amount of bright red blood in your bowel movements. Your abdomen is hard and firm and you have severe pain. You have sudden trouble breathing. Call your doctor if: You develop a rash or hives. You have a fever within 24 hours of your procedure. You have nausea and vomiting. You feel anesthesia effects greater than 24 hours. You have not had a bowel movement for 3 days after your procedure. You have questions or concerns about your condition or care. After your colonoscopy: Do not lift, strain, or run until your healthcare provider says it is okay. Rest as much as possible. You have been given medicine to relax you. Do not drive or make importantdecisions for at least 24 hours. Return to your normal activity as directed. Relieve gas and discomfort from bloating by lying on your left side with a heating pad on your abdomen. You may need to take short walks to help the gas move out. Eat small meals until bloating is relieved. If you had polyps removed: For 7 days after your procedure: Do not take aspirin. Do not go on long car rides. Help prevent constipation: Eat a variety of healthy foods. Healthy foods include fruit, vegetables, whole- grain breads, low-fat dairy products, beans, lean meat, and fish. Ask if you need to be on a special diet. Your healthcare provider may recommend that you eat high-fiber foods such as cooked beans. Fiber helps you have regular bowel movements. Drink liquids as directed. Adults should drink between 9 and 13 eight-ounce cups of liquid every day. Ask what amount is best for you. For most people, good liquids to drink are water, juice, and milk. Exercise as directed. Talk to your healthcare provider about the best exercise plan for you. Exercise can help prevent constipation, decrease your blood pressure and improve your health. Follow up with your doctor as directed: Write down your questions so you remember to ask them during your visits. ?? Copyright [employer] 2020 Information is for End User's use only and may not be sold, redistributed or otherwise used for commercial purposes. All illustrations and images included in CareNotes?? are the copyrighted property of [employer] or [employer] The above information is an wheel braider only. It is not intended as medical advice for individual conditions or treatments. Talk to your doctor, nurse or pharmacist before following any medical regimen to see if it is safe and effective for you. RMIX DEVELOPER documented in this encounter Medications at Time of Discharge [...] Breath 75 mL 09/07/2021 12/14/2022 albuterol HFA (Proventil; Ventolin; Proair) 108 (90 Base) MCG/ACT inhalerIndications:Ce ntrilobular emphysema (HCC) INHALE 2 (TWO) PUFFS BY MOUTH EVERY 6 HOURS NEEDED 18 g 3 07/12/2022 12/14/2022 alfuzosin CR 24hr (Uroxatral) 10 MG tablet Take 1 (one) tablet by mouth once daily 30 tablet 4 11/18/2022 03/03/2023 ASPIRIN LOW DOSE 81 MG chew tablet CHEW AND SWALLOW 1 TAB DAILY 100 tablet 2 06/03/2021 02/13/2023 atorvastatin (Lipitor) 40 MG tablet Take 1 (one) tablet by mouth once daily 90 tablet 3 06/23/2022 12/25/2023 budesonide-formoterol (SYMBICORT) 160-4.5 MCG/ACT inhalerIndications:NO SUBSTITUTION, BRAND NAME ONLY Inhale 2 (two) puffs by mouth 2 times daily Reasons: NO SUBSTITUTION, BRAND NAME ONLY 10.2 g 3 09/14/2021 12/14/2022 carvedilol (Coreg) 12.5 MG tablet TAKE 1 (ONE) TABLET BY MOUTH 2 TIMES DAILY WITH MORNING AND EVENING MEAL 180 tablet 3 08/02/2022 08/14/2023 eplerenone (Inspra) 25 MG tablet Take 1 (one) tablet by mouth once daily 30 tablet 1 08/11/2022 12/29/2022 fluticasone propionate (FLONASE) 50 MCG/ACT nasal spray SHAKE LIQUID AND USE 2 SPRAYS IN EACH NOSTRIL EVERY DAY 16 g 11 09/30/2020 12/14/2022 hydroCHLOROthiazide (Hydrodiuril) 25 MG tablet Take 1 (one) tablet by mouth once daily 90 tablet 3 10/18/2022 11/02/2023 lamoTRIgine (LaMICtal) 100 MG tablet Take 1 (one) tablet by mouth 2 times daily 01/29/2024 omeprazole (PRILOSEC) 40 MG capsule 03/10/2022 12/29/2022 polyethylene glycol (Golytely) 236 g solution Drink [...] affected area 2 times daily 60 g 08/11/2022 12/12/2022 ziprasidone (GEODON) 40 MG capsule 08/25/2020 01/29/2024 documented as of this encounter H&P Notes * Gavin Mccormick MD - 12/07/2022 10:04 AM CST PRE-PROCEDURE HISTORY & PHYSICAL NOTE 12/07/2022 10:05 AM Patient: Josafat Calvo, date of 1960 Procedure(s) planned: Colonoscopy Indication(s): Surveillance - Hx of polyps History: Patient Active Problem List Diagnosis Date Noted ??? Weight loss 07/29/2022 Priority: Not Prioritized ??? Healthcare maintenance 07/29/2022 Priority: Not Prioritized ??? Neuropathy 07/29/2022 Priority: Not Prioritized ??? Dark stools 07/29/2022 Priority: Not Prioritized ??? Dark brown urine 07/29/2022 Priority: Not Prioritized ??? Gynecomastia 07/29/2022 Priority: Not Prioritized ??? PAD (peripheral artery disease) ([facility]) 06/29/2022 Priority: Not Prioritized ??? Hypertension, secondary 01/05/2022 Priority: Not Prioritized ??? Sleep talking 01/05/2022 Priority: Not Prioritized ??? Sleep related gastroesophageal reflux disease 01/05/2022 Priority: Not Prioritized ??? Sleep choking syndrome 01/05/2022 Priority: Not Prioritized ??? PND (paroxysmal nocturnal dyspnea) 01/05/2022 Priority: Not Prioritized ??? Bipolar affective disorder ([facility]) 12/24/2021 Priority: Not Prioritized ??? Back pain 12/24/2021 Priority: Not Prioritized ??? Family history of other specified conditions 12/24/2021 Priority: Not Prioritized ??? Asthma-COPD overlap syndrome ([facility]) 11/11/2021 Priority: Not Prioritized ??? Chronic midline low back pain without sciatica 11/09/2021 Priority: Not Prioritized ??? Lumbosacral disc disease 11/09/2021 Priority: Not Prioritized ??? Foraminal stenosis of lumbar region 11/09/2021 Priority: Not Prioritized ??? Heart failure with reduced ejection fraction ([facility]) 02/08/2021 Priority: Not Prioritized ??? Lumbar spondylosis 09/19/2019 Priority: Not Prioritized ??? Essential hypertension 07/11/2019 Priority: Not Prioritized ??? Panlobular emphysema ([facility]) 08/09/2018 Priority: Not Prioritized ??? Tobacco abuse 11/06/2017 Priority: Not Prioritized ??? Major depressive disorder, single episode, severe without psychotic features ([facility]) 11/02/2015 Priority: Not Prioritized Past Surgical History: Procedure Laterality Date ??? ENDOSCOPY, COLON, DIAGNOSTIC ??? HAND SURGERY Left ??? Knee Replacement Right Allergies Allergen Reactions ??? Lisinopril Anaphylaxis ??? Pcn [Penicillins] Anaphylaxis ??? Penicillin G Swelling Family History Problem Relation Name Age of Onset ??? Cancer - Colon Mother ??? Heart Failure Father ??? Hypertension Sister ??? Cancer - Lung Brother 53 ??? Cancer - Other Brother No current facility-administered medications on file prior to encounter. Current Outpatient Medications on File Prior to Encounter Medication Sig Dispense Refill ??? acetaminophen (TYLENOL) [...] 6 HOURS NEEDED 18 g 3 ??? ASPIRIN LOW DOSE [...] AND EVENING MEAL 180 tablet 3 ??? fluticasone propionate (FLONASE) 50 MCG/ACT nasal spray SHAKE LIQUID AND USE 2 SPRAYS IN EACH NOSTRIL EVERY DAY (Patient not taking: Reported on 11/18/2022) 16 g 11 ??? hydrOXYzine pamoate (VISTARIL) 100 MG capsule ??? lamoTRIgine (LAMICTAL) 100 MG tablet ??? nicotine polacrilex (COMMIT) 4 MG lozenge Take 1 (one) Each by mouth as needed for Smoking Cessation Reasons: Nicotine Addiction (Patient not taking: Reported on 12/07/2022) 108 lozenge 3 ??? nicotine polacrilex (NICORETTE) 4 MG gum Take 1 (one) Each by mouth as needed for Smoking Cessation Reasons: Nicotine Addiction 100 Each 3 ??? omeprazole (PRILOSEC) 40 MG capsule ??? sildenafil (VIAGRA) 100 MG tablet Take 1 (one) tablet by mouth once as needed 1 hour prior to intercourse Reasons: Erectile Dysfunction (Patient not taking: Reported on 12/07/2022) 10 tablet 4 ??? ziprasidone (GEODON) 40 MG capsule Current Facility-Administered Medications Medication ??? 0.9% NaCl infusion ??? 0.9% NaCl injection 3 mL Review of systems: Constitutional: negative for fevers, chills, fatigue and malaise, no recent weight loss Respiratory: denies shortness of breath Cardiovascular: denies chest pain Gastrointestinal: negative for nausea, vomiting, diarrhea, abdominal pain Physical Exam: BP (!) 148/103 Pulse 87 Temp 99.1 ??F (37.3 ??C) (Oral) Resp 24 Ht 1.753 m (5' 9 ) Wt 106.1 kg (234 lb) SpO2 96% General appearance: alert, oriented, pleasant, in NAD, no asterexis Skin: Skin color, texture, turgor normal, no rashes, no spider angiomas Eyes: Anicteric sclera Lungs: CTAB, no wheezing or rhonchi Heart: RRR Abdomen: Soft, non-tender, non distended. Bowel sounds normal. No masses, organomegaly Extremities: No LE edema, or skin discoloration. Good capillary refill. Mallampati: 2 ASA score: 2 Lab Results Component Value Date/Time HGB 13.1 (L) 08/09/2022 01:47 PM HGB 13.0 (Abnormal) 07/25/2019 12:00 AM PLT 254 07/25/2019 12:00 AM INR 1.1 06/17/2020 09:01 AM CREATININE 0.78 08/09/2022 01:47 PM CREATININE 0.88 07/25/2019 12:00 AM Sedation Plan: Monitored Anesthesia Care (MAC) by the anesthesia team. Procedure Plan: Based on the above assessment, we will perform the procedures indicated above. I have discussed the plan, risks, benefits and alternatives with the patient or guardian. When assessment above was not obtained immediately before the procedure, I have reassessed this patient and there are no changes. Tal Mccormick MD December 07, 2022 RMIX DEVELOPER documented in this encounter Plan of Treatment [...] Procedure Name Priority Date/Time Associated Diagnosis Comments PATHOLOGY TISSUE Routine 12/07/2022 10:2 9 AM INFORMIX DEVELOPER Dark stools Colon cancer screening COLONOSCOPY SCREEN 12/07/2022 10 :20 AM INFORMIX DEVELOPER Dark stools Colon cancer screening ENDOSCOPY, COLON, SCREENING Routine 12/07/2022 10:04 AM INFORMIX DEVELOPER documented in this encounter Results * PATHOLOGY TISSUE (12/07/2022 10:29 AM INFORMIX DEVELOPER) Case Report Surgical Pathology Report ? Case: [id number] ? Authorizing Provider: ??Gavin Mccormick, ??Collected: ? 12/07/2022 10:29 AM ? MD ? Ordering Location: ? [facility] ?Received: ?12/07/2022 12:46 PM ? Pathologist: ? Coral Epps MD ? Specimen: ?Polyp Ascending, ascending colon polyps ? 12/08/2022 1:54 PM [facility] Final Diagnosis Large intestine, ascending colon polyps, biopsy (A): - Tubular adenoma(s), fragmented 12/08/2022 1:54 PM [facility] Microscopic Description and Comment Microscopic examination substantiates the final diagnosis. 12/08/2022 1:54 PM [facility] Clinical History The patient is a 62-year-old man who presents for high risk colon cancer surveillance (personal history of colonic polyps and family history of colon cancer in first-degree relative age <60 years). Operative procedure/findings: Colonoscopy - four 4-6 mm ascending colon polyps, resected and retrieved. 12/08/2022 1:54 PM [facility] Gross Description The requisition and specimen(s) are identified with the patient's name Josafat Calvo. Received in formalin, specimen A , are multiple pink-nolasco tissues, 0.2-0.8 cm in greatest dimension and 2.0 x 0.5 x 0.2 cm in aggregate, submitted in toto in cassette A1. DF 12/08/2022 1:54 PM [facility] Disclaimer The performance characteristics of all immunohistochemical and indirect immunofluorescence stains (if any) cited in this report were determined by the Histopathology Laboratory of [facility]. Some of these tests were developed [...] the attending (teaching) pathologist. 12/08/2022 1:54 PM [facility] Embedded Images 12/08/2022 1:54 PM [facility] Biopsy, NOS POLYP / Unknown 12/07/2022 1 0:29 AM INFORMIX DEVELOPER 12/07/2022 12:46 PM INFORMIX DEVELOPER Comment:Pre-op diagnosis: Dark stools [R19.5] Colon cancer screening [Z12.11] Rae Mccormick MD LAB - PATHOLOGY/CYTOLOGY ORDERABLES [facility] PATHOLOGY LAB [address] [phone] * ENDOSCOPY, COLON, SCREENING (12/07/2022 10:04 AM INFORMIX DEVELOPER) Report Endoscopy POC Endoscopy Department Report _ Patient Name: Josafat Calvo ?Procedure Date: 12/07/2022 10:04 AM ?Date of : 1960 Classification: Outpatient ?Gender: Male Ethnicity: Not or ? Race: Black or _ Providers: ?Tal Mccormick Referring MD: ? Ian Pollock (Referring MD) [...] Procedure Code(s): ? --- Professional --- ? 43286, Colonoscopy, flexible; with removal of tumor(s), polyp(s), or ? other lesion(s) by snare technique Diagnosis Code(s): ?--- Professional --- ?Z86.010, Personal history of colonic polyps ?K63.5, Polyp of colon ?Z80.0, Family history of malignant neoplasm of ?digestive organs CPT copyright 2019 [employer]. All rights reserved. The codes documented in this report are preliminary and upon wrapper leaf inspector review may be revised to meet current compliance requirements. Tal Mccormick, 12/07/2022 10:49:20 AM Note Initiated On: 12/07/2022 10:04 AM Number of Addenda: 0 ? [facility] ? [address] [place] [address] [facility] 12/07/2022 10:0 4 AM INFORMIX DEVELOPER Rae Mccormick MD GI PRO CEDURE ORDERABLES [facility] documented in this encounter Visit Diagnoses Diagnosis Dark stools Nonspecific abnormal finding in stool contents Colon cancer screening Special screening for malignant neoplasms, colon Dark stools Nonspecific abnormal finding in stool contents Colon cancer screening Special screening for malignant neoplasms, colon documented in this encounter Administered Medications Inactive Administered Medications - up to 3 most recent administrations Medication Order MAR Action Action Date Dose Rate Site 0.9% NaCl infusion at 20 mL/hr, Intravenous, CONTINUOUS, Starting on Mon12/07/22 at 0915, Until Mon12/07/22 at 1237, Pre-procedure (GI) $ New Bag/Syringe 12/07/2022 9:38 AM INFORMIX DEVELOPER 20 mL/h r 0.9% NaCl injection 3 mL 3 mL, Intracatheter, PRE-PROCEDURE MULTIPLE, Starting on Mon12/07/22 at 0913, Until Mon12/07/22 at 1237, For Saline Lock flushes if one is inserted for Bronchoscopy/Endoscopy procedure., Pre-procedure (GI) documented in this encounter Active and Recently Administered Medications Times are shown in INFORMIX DEVELOPER. Scheduled Medication Order 12/05/2022 12/06/2022 12/07/2022 0.9% NaCl injection 3 mL 3 mL, Intracatheter, PRE-PROCEDURE MULTIPLE, Starting on Mon12/07/22 at 0913, Until Mon12/07/22 at 1237, For Saline Lock flushes if one is inserted for Bronchoscopy/Endoscopy procedure., Pre-procedure (GI) Continuous Medication Order 12/05/2022 12/06/2022 12/07/2022 0.9% NaCl infusion at 20 mL/hr, Intravenous, CONTINUOUS, Starting on Mon12/07/22 at 0915, Until Mon12/07/22 at 1237, Pre-procedure (GI) 0938 ($ New Bag/Syri nge - Provider: Grecia Dunne RN) documented in this encounter Care Teams Craniologist Relationship Specialty Start Date End Date Ian Pollock MD [address] [place] [address] PCP - General 08/21/20 05/29/23 Katina Casiano DO [address] DIV OF [facility] INTERNAL MEDICINE [place], [place] Resident - PCP Internal Medicine 08/10/22 05/29/23 documented as of this encounter
--- OUTSIDE RECORDS SUMMARY | 2024-10-30 06:49 | XMS_ITS | Encounter Summary ---
Author Organization [facility] Address [address] [place] [address] Care Team Providers Care Operating Engineer Apprentice Name Role Phone Ian Pollock MD Primary Care Provider [phone] Katina Casiano DO Unavailable [phone] Reason for Visit * Reason Onset Date Comments Pain Leg 11/23/2022 Encounter Details Date Type Department Care Team (Late st Contact Info) Description 11/23/2022 Telephone [facility] [address] [facility] [phone] [id number] Maxine Stroud RN Pain Leg Social History Tobacco Use Types Packs/Day Years [...] Telephone Encounter - Maxine Stroud RN - 11/25/2022 10:53 AM CST Patient called and left message stating that it not his hip, it is his leg. States that he had DVT and PE. Per note from 01/19/22: # Peripheral vascular disease : Symptomatic [place] 1-2 , mild to moderate claudication No ulcers , faint but palpable pulses PLAN: [facility] STAT[facility] Rehab program smoking cessation RTC 3 months Per note on 09/30/22: #?Peripheral vascular disease/CAD - no angina, claudication - high intesity statin, LDL at goal - aspirin 81 mg daily - tobacco cessation strongly encouraged Called and spoke with patient, he states that it is sometimes tight and swollen. It is a sharp pain. Denies any redness, warmth, tenderness. Pain comes and goes. Nothing makes it better or worse. Taking tylenol for hip, but does not help leg. States that it is happening more frequently. Requested that he make appointment to be seen. He states that he will call and schedule. Gave him number to call. URY PURIFIER * Telephone Encounter - Maxine Stroud RN - 11/23/2022 10:25 AM CST Patient called and left message stating that he is having leg pain, requested call back to discuss. Per last visit 09/30/22: - L anterior leg pain is likely MSK in origin, discussed tylenol/heat/ice, etc. May need PT for L hip pain - continue mgmt per ortho, PCP. Attempted to reach patient, automated message states that phone number is unavailable and to try call again later, will try to reach patient at a later time. Sent [employer]self message URY PURIFIER documented in this encounter Plan of Treatment [...] on filedocumented in this encounter Care Teams Operating Engineer Apprentice Relationship Specialty Start Date End Date Ian Pollock MD [address] DIV OF [facility] INTERNAL MEDICINE [address] PCP - General 08/21/20 05/29/23 Katina Casiano DO [address] DIV OF [facility] INTERNAL [place], [place] Resident - PCP Internal Medicine 08/10/22 05/29/23 documented as of this encounter
--- OUTSIDE RECORDS SUMMARY | 2024-10-30 06:49 | XMS_ITS | Encounter Summary ---
Author Organization [facility] Address [address] [place] [address] Care Team Providers Care Workday Financials Consultant Name Role Phone Ian Pollock MD Primary Care Provider [phone] Encounter Details Date Type Department Care Team (Latest Contact Info) Description 01/18/2022 Travel Social History Tobacco Use Types Packs/Day [...] on filedocumented in this encounter Care Teams Workday Financials Consultant Relationship Specialty Start Date End Date Ian Pollock MD [address] [place] [address] PCP - General 08/21/20 05/29/23 documented as of this encounter
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
--- OUTSIDE RECORDS SUMMARY | 2024-10-30 06:49 | XMS_ITS | Encounter Summary ---
Author Organization [facility] Address [address] [place] [address] Care Team Providers Care Digester Capper Name Role Phone Ian Pollock MD Primary Care Provider Reason for Visit * Reason Onset Date Comments Results 02/07/2022 Encounter Details Date Type Department Care Team ([facility] Contact Info) Description 02/07/2022 Telephone [facility] [address] [facility] [address] [place] [address] Maxine Stroud, ALYX Results Social History Tobacco Use Types Packs/Day [...] Telephone Encounter - Maxine Stroud RN - 02/09/2022 9:25 AM CDT Patient called and left message inquiring about results from yesterday. Returned call to patient, he states that he got a message in [employer] stating there was new results.States that when he opens the result, there is nothing there. Informed him the press writer could not seeresults yesterday, but could see them today. Informed him message was already sent to provider to advise on results. Told him return call will be placed when provider advises on results. Patient in agreement with plan. * Telephone Encounter - Maxine Stroud RN - 02/07/2022 4:29 PM CDT Patient called and left message stating that he was able to see echo results but does not understand them. Not able to see results in chart. Please advise on echo results documented in this encounter Plan of Treatment [...] on filedocumented in this encounter Care Teams Digester Capper Relationship Specialty Start Date End Date Ian Pollock MD [address] [place] [address] PCP - General 08/21/20 05/29/23 documented as of this encounter
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
--- OUTSIDE RECORDS SUMMARY | 2024-10-30 06:49 | XMS_ITS | Encounter Summary ---
Author Organization [facility] Address [address] [place] [address] Care Team Providers Care Film Producer Name Role Phone Ian Pollock MD Primary Care Provider [phone] Reason for Visit * Reason Onset Date Comments Cardiac Rehab 02/16/2022 Encounter Details Date Type Department Care Team (Late st Contact Info) Description 02/16/2022 Telephone [facility] [address] [place] [address] Elda Becekr, food storeroom clerk Social History Tobacco Use Types Packs/Day Years [...] encounter Miscellaneous Notes * Telephone Encounter - Elda Becker RN - 02/16/2022 7:34 AM CDT Pt called and left VM stating he would not be able to attend Cardiac Rehab today, as something had come up. documented in this encounter Plan of Treatment [...] on filedocumented in this encounter Care Teams Film Producer Relationship Specialty Start Date End Date Ian Pollock MD [address] [place] [address] PCP - General 08/21/20 05/29/23 documented as of this encounter
--- OUTSIDE RECORDS SUMMARY | 2024-10-30 06:49 | XMS_ITS | Encounter Summary ---
Author Organization [facility] Address [address] [facility] [address] [facility] [place] [address] Care Team Providers Care Binitrotoluene Operator Name Role Phone Ian Pollock MD Primary Care Provider [phone] Reason for Visit * Reason Comments Refill Request Encounter Details Date Type Department Care Team (Late st Contact Info) Description 08/02/2022 Refill [facility] [address] [place] [address] John Nelson MD [address] [place] [address] Refill Request Social History Tobacco Use Types [...] Miscellaneous Notes * Telephone Encounter - Eli Mendez, RN - 08/02/2022 3:49 PM CDT Refill Request Josafat Calvo EDELMIRA: 06/29/22 NOV scheduled: Visit date not found LRF: 07/28/21 Qty Disp: 180 # of refills: 3 Pended Medication Order: Requested Prescriptions Pending Prescriptions Disp Refills ??? carvedilol (Coreg) 12.5 MG tablet [Pharmacy Med Name: CARVEDILOL 12.5 MG TABLET] 180 tablet 3 Sig: TAKE 1 (ONE) TABLET BY MOUTH 2 TIMES DAILY WITH MORNING AND EVENING MEAL documented in this encounter Plan of Treatment [...] on filedocumented in this encounter Care Teams Binitrotoluene Operator Relationship Specialty Start Date End Date Ian Pollock MD [address] [facility] [address] [facility] [place] [place] [address] PCP - General 08/21/20 05/29/23 documented as of this encounter
--- OUTSIDE RECORDS SUMMARY | 2024-10-30 06:49 | XMS_ITS | Encounter Summary ---
Author Organization [facility] Address [address] [facility] [place] [address] Care Team Providers Care Medical Field Representative Name Role Phone Ian oPllock MD Primary Care Provider [phone] Encounter Details Date Type Department Care Team (Late st Contact Info) Description 01/19/2022 Orders Only [facility] [address] [facility] [address] [place] [address] Sayed Torres Blankenship MD [address] [place] [address] [place] [address] Dyspnea, unspecified type Social History Tobacco Use [...] Date/Time Associated Diagnosis Comments ECHO COMPLETE Routine 02/07/2022 8:55 AM CDT Dyspnea, unspecified type documented in this encounter Results * ECHO COMPLETE (02/07/2022 8:55 AM CDT) Anatomical Region Laterality Modality Chest Echo 02/07/2022 8:13 AM CDT Narrative 02/07/2022 12:42 PM CDT Procedure Note Joaquin Hart MD - 05/16/2023 Bridget Lomas MD ECHOCARDIOGRAPHY RA DIANT documented in this encounter Visit Diagnoses Diagnosis Dyspnea, unspecified type documented in this encounter Care Teams Medical Field Representative Relationship Specialty Start Date End Date Ian Pollock MD [address] OF [facility] [place] [address] PCP - General 08/21/20 05/29/23 documented as of this encounter
--- OUTSIDE RECORDS SUMMARY | 2024-10-30 06:49 | XMS_ITS | Encounter Summary ---
Author Organization [facility] Address [address] [facility] [facility] [place] [address] Care Team Providers Care Punch Press Setter Name Role Phone Ian Pollock MD Primary Care Provider Encounter Details Date Type Department Care Team (Late st Contact Info) Description 02/03/2022 Orders Only [facility] [address] [facility] [place] [address] Natalie Freeman Trochanteric bursitis of left hip Social History Tobacco Use Types Packs/Day Years [...] as of this encounter Visit Diagnoses Diagnosis Trochanteric bursitis of left hip- Primary Enthesopathy of hip region documented in this encounter Care Teams Punch Press Setter Relationship Specialty Start Date End Date Ian Pollock MD [address] OF [facility] [place] [address] PCP - General 08/21/20 05/29/23 documented as of this encounter
--- OUTSIDE RECORDS SUMMARY | 2024-10-30 06:49 | XMS_ITS | Encounter Summary ---
Author Organization [facility] Address [address] [facility] [place] [address] Care Team Providers Care Bowling Alley Mechanic Name Role Phone Ian Pollock MD Primary Care Provider [phone] Encounter Details Date Type Department Care Team ([facility] Contact Info) Description 03/02/2022 8:30 AM CDT Cardiac Rehab [facility] [address] [place] [address] Heart failure with reduced ejection fraction (HCC) [...] encounter Progress Notes * Ludivina Moore - 03/02/2022 1:13 PM CDT See Daily Exercise Log in media. ECG Interpretation NSR. Patient stated he had some moderate SOB while on the recumbent bike. O2 @ 98%. SOB relieved with rest. Patient was able to tolerate today's exercise well, no complaints of chest pain upon exertion. Patient met with Jackie CASTELLON following exercise. VSS upon discharge from Cardiac Rehab. Education handout and discussion given on Facts about Healthy Weight per National [employer] of Health. Patient demonstrates good understanding ofthis topic. Plan for next visit scheduled for 03/07 is to continue to increase as tolerated by RPE and THR. Ludivina Moore Cardiac Rehabilitaiton Solution Consultant [email or web address] documented in this encounter Plan of Treatment [...] Primary documented in this encounter Care Teams Bowling Alley Mechanic Relationship Specialty Start Date End Date Ian Pollock MD [address] [place] [address] PCP - General 08/21/20 05/29/23 documented as of this encounter
--- OUTSIDE RECORDS SUMMARY | 2024-10-30 06:49 | XMS_ITS | Encounter Summary ---
Author Organization [facility] Address [address] [facility] [place] [address] Care Team Providers Care Route Service Manager Name Role Phone Ian Pollock MD Primary Care Provider [phone] Reason for Visit * Reason Onset Date Comments Cardiac Rehab 02/17/2022 Encounter Details Date Type Department Care Team (Late st Contact Info) Description 02/17/2022 Telephone [facility] [address] [place] [address] Elda Becker, financial controller Social History Tobacco Use Types Packs/Day Years [...] Telephone Encounter - Elda Becker RN - 02/17/2022 8:23 AM CDT Returned pt call regarding his need to reschedule his Cardiac Rehab session.Pt unable to attend Wednesday 02/21 due to a conflicting appt with Ortho. Pt scheduled to return to Cardiac Rehab on 02/23/22 @ 9am. documented in this encounter Plan of Treatment [...] on filedocumented in this encounter Care Teams Route Service Manager Relationship Specialty Start Date End Date Ian Pollock MD [address] [place] [address] PCP - General 08/21/20 05/29/23 documented as of this encounter
--- OUTSIDE RECORDS SUMMARY | 2024-10-30 06:49 | XMS_ITS | Encounter Summary ---
Author Organization [facility] Address [address] [place] [address] Care Team Providers Care Shell Assembler Name Role Phone Ian Pollock MD Primary Care Provider Katina Casiano DO Unavailable [phone] Xavi ACOSTA MD, Jameel Gaviria Primary Care Provider + Katina Casiano DO Unavailable [phone] Tracey Ang PA Unavailable [phone] Belkis Angel TEACHING SPECIALISTS-RECEIVER DISPATCHER Primary Care Provider + Natalie Baum Primary Care Provider [phone] Encounter Details Date Type Department Care Team (Late st Contact Info) Description 02/18/2022 Telephone [facility] Pul[facility], Critical Care and Sleep Medicine [address] [facility] [place] [id number] Agnieszka Haas MD [address] [place] [address] Social History Tobacco Use Types Packs/Day Years [...] encounter Miscellaneous Notes * Telephone Encounter - Blanca Candelario - 02/18/2022 8:09 AM CDT Current Provider name: Dr. Haas Reason for call: Josafat Calvo had his CT Scan done yesterday and would like you all to call to review with him. Patient Call Back number: [phone] documented in this encounter Plan of Treatment [...] on filedocumented in this encounter Care Teams Shell Assembler Relationship Specialty Start Date End Date Ian Pollock MD [address] DIV OF [facility] [place] [address] PCP - General 08/21/20 05/29/23 Jameel Hurley III, MD [address] DIV OF [facility] [place] [address] PCP - General Internal Medicine 06/05/23 08/28/23 Belkis Angel, TEACHING SPECIALISTS-RECEIVER DISPATCHER [address] [facility] 2nd [place] [address] PCP - General Nurse Practitioner 08/29/23 05/05/24 Natalie Baum [address] [place] [address] PCP - General 05/06/24 Katina Casiano DO [address] [facility] 2[address] DIV OF GEN INTERNAL MEDICINE [place], [place] Resident - PCP Internal Medicine 08/10/22 05/29/23 Katina Casiano DO [address] [facility] [address] DIV OF GEN INTERNAL MEDICINE [place], [place] Hospitalist 06/05/23 Tracey Ang PA [address] [facility] [address] [place] [address] Physician Seafood Harvester 08/15/23 documented as of this encounter
--- OUTSIDE RECORDS SUMMARY | 2024-10-30 06:49 | XMS_ITS | Encounter Summary ---
Author Organization [facility] Address [address] [facility] [place] [address] Care Team Providers Care Plush Weaver Name Role Phone Ian Pollock MD Primary Care Provider Encounter Details Date Type Department Care Team (Late st Contact Info) Description 01/28/2022 Orders Only [facility] Orthopedic Surgery [address] [place] [address] Natalie Freeman Trochanteric bursitis of left hip [...] as of this encounter Progress Notes * Natalie Freeman - 01/28/2022 10:[address] Madrigal does not take [employer] insurance. Ordered Left greater trochanteric bursa epiduralsteroid injection through interventional radiology instead. documented in this encounter Plan of Treatment [...] region documented in this encounter Care Teams Plush Weaver Relationship Specialty Start Date End Date Ian Pollock MD [address] OF [facility] [place] [address] PCP - General 08/21/20 05/29/23 documented as of this encounter
--- OUTSIDE RECORDS SUMMARY | 2024-10-30 06:49 | XMS_ITS | Encounter Summary ---
Author Organization [facility] Health Address [address] [facility] [place] [address] Care Team Providers Care Manager Employment Name Role Phone Ian Pollock MD Primary Care Provider [phone] Katina Casiano DO Unavailable [phone] Reason for Visit * Reason Onset Date Comments Order 12/30/2022 Encounter Details Date Type Department Care Team (Late st Contact Info) Description 12/30/2022 Telephone [facility] General Internal Medicine [address] [facility] [place] [phone] Katina Casiano, [address] [place] [address] Order Social History Tobacco Use Types Packs/Day [...] encounter Miscellaneous Notes * Telephone Encounter - Hortencia Araujo RN - 12/30/2022 10:12 AM CST Patient called back in and stated that the Sleep Study location at [facility] wanted the order faxed to them. I faxed it for patient from [employer]. NOL OPERATOR documented in this encounter Plan of [...] on filedocumented in this encounter Care Teams Manager Employment Relationship Specialty Start Date End Date Ian Pollock MD [address] [place] [address] PCP - General 08/21/20 05/29/23 Katina Casiano DO [address] DIV OF [facility] INTERNAL MEDICINE [place], [place] Resident - PCP Internal Medicine 08/10/22 05/29/23 documented as of this encounter
--- OUTSIDE RECORDS SUMMARY | 2024-10-30 06:49 | XMS_ITS | Encounter Summary ---
Author Organization [facility] Address [address] [address] Care Team Providers Care Disc Pad Knockout Worker Name Role Phone Ian Pollock MD Primary Care Provider [phone] Katina Casiano DO Unavailable [phone] Reason for Referral * Transfer of Care (Routine) - Closed Specialty Diagnoses / Procedures Referred By Contac t Referred To Contact Procedures Follow up with Primary Care Provider (PCP) Rae Mccormick MD [address] [place] [address] Referral ID Status Reason Start Date Expiration Date Visits Re quested Visits Authorized [id number] Closed 12/07/2022 12/07/2023 1 1 WARE INSTALLER Reason for Visit * Auth/Cert (Routine) Specialty Diagnoses / Procedures Referred By Florentino lowe Referred To Contact Diagnoses Dark stools Colon cancer screening Procedures COLONOSCOPY SCREEN Referral ID Status Reason Start Date Expiration Date Visits Re quested Visits Authorized [id number] 1 1 Encounter Details Date Type Department Care Team (Latest Contact Info) Description 12/07/2022 9:03 AM SOFTWARE INSTALLER - 12/07/2022 11:34 AM SOFTWARE INSTALLER Hospital Encounter [facility] [address] [place] [id number] Rae Mccormick MD [address] [place] [address] Surgery General Discharge Disposition: Home or Self Care Social [...] Sign Reading Time Taken Comments Blood Pressure 165/119 12/07/2022 11:15 AM SOFTWARE INSTALLER Pulse 79 12/07/2022 11:15 AM SOFTWARE INSTALLER Temperature 36 ??C (96.8 ??F) 12/07/2022 10:51 AM SOFTWARE INSTALLER Respiratory Rate 28 12/07/2022 11:15 AM SOFTWARE INSTALLER Oxygen Saturation 98% 12/07/2022 11:15 AM SOFTWARE INSTALLER Inhaled Oxygen Concentration - - Weight 106.1 kg (234 lb) 12/07/2022 9:22 AM SOFTWARE INSTALLER Height 175.3 cm (5' 9 ) 12/07/2022 9:22 AM SOFTWARE INSTALLER Body Mass Index 34.56 12/07/2022 9:22 AM SOFTWARE INSTALLER documented in this encounter Functional Status Functional [...] encounter Discharge Instructions * Discharge Instructions* Karin Acosta RN - 12/07/2022 9:25 AM SOFTWARE INSTALLER Images from the original note were not [...] ask them during your visits. ?? Copyright [employer] 2020 Information is for End User's use only and may not be sold, redistributed or otherwise used for commercial purposes. All illustrations and images included in CareNotes?? are the copyrighted property of [employer] or [employer] The above information is an institutional aide only. It is not intended as medical advice for individual conditions or treatments. Talk to your doctor, nurse or pharmacist before following any medical regimen to see if it is safe and effective for you. WARE INSTALLER documented in this encounter Medications at Time [...] Not Prioritized ??? PAD (peripheral artery disease) ([facility]) 06/29/2022 Priority: Not Prioritized ??? Hypertension, secondary 01/05/2022 Priority: Not Prioritized ??? Sleep talking 01/05/2022 Priority: Not Prioritized ??? Sleep related gastroesophageal reflux disease 01/05/2022 Priority: Not Prioritized ??? Sleep choking syndrome 01/05/2022 Priority: Not Prioritized ??? PND (paroxysmal nocturnal dyspnea) 01/05/2022 Priority: Not Prioritized ??? Bipolar affective disorder ([facility]) 12/24/2021 Priority: Not Prioritized ??? Back pain 12/24/2021 Priority: Not Prioritized ??? Family history of other specified conditions 12/24/2021 Priority: Not Prioritized ??? Asthma-COPD overlap syndrome ([facility]) 11/11/2021 Priority: Not Prioritized ??? Chronic midline low back pain without sciatica 11/09/2021 Priority: Not Prioritized ??? Lumbosacral disc disease 11/09/2021 Priority: Not Prioritized ??? Foraminal stenosis of lumbar region 11/09/2021 Priority: Not Prioritized ??? Heart failure with reduced ejection fraction ([facility]) 02/08/2021 Priority: Not Prioritized ??? Lumbar spondylosis 09/19/2019 Priority: Not Prioritized ??? Essential hypertension 07/11/2019 Priority: Not Prioritized ??? Panlobular emphysema ([facility]) 08/09/2018 Priority: Not Prioritized ??? Tobacco abuse 11/06/2017 Priority: Not Prioritized ??? Major depressive disorder, single episode, severe without psychotic features ([facility]) 11/02/2015 Priority: Not Prioritized Past Surgical History: [...] changes. Tal Mccormick MD December 07, 2022 WARE INSTALLER documented in this encounter Plan of Treatment [...] PATHOLOGY TISSUE Routine 12/07/2022 10:2 9 AM SOFTWARE INSTALLER Dark stools Colon cancer screening COLONOSCOPY SCREEN 12/07/2022 10 :20 AM SOFTWARE INSTALLER Dark stools Colon cancer screening ENDOSCOPY, COLON, SCREENING Routine 12/07/2022 10:04 AM SOFTWARE INSTALLER documented in this encounter Results * PATHOLOGY TISSUE (12/07/2022 10:29 AM SOFTWARE INSTALLER) Case Report Surgical Pathology Report ? Case: [id number] ? Authorizing Provider: ??Gavin Mccormick, ??Collected: ? 12/07/2022 10:29 AM ? MD ? Ordering Location: ? [facility] ?Received: ?12/07/2022 12:46 PM ? Pathologist: ? Coral Epps MD ? Specimen: ?Polyp Ascending, ascending colon polyps ? 12/08/2022 1:54 PM SOFTWARE INSTALLER [facility] Final Diagnosis Large intestine, ascending colon polyps, biopsy (A): - Tubular adenoma(s), fragmented 12/08/2022 1:54 PM [facility] Microscopic Description and Comment Microscopic examination substantiates the final diagnosis. 12/08/2022 1:54 PM [facility] Clinical History The patient is a 62-year-old man who presents for high risk colon cancer surveillance (personal history of colonic polyps and family history of colon cancer in first-degree relative age <60 years). Operative procedure/findings: Colonoscopy - four 4-6 mm ascending colon polyps, resected and retrieved. 12/08/2022 1:54 PM [facility] Gross Description The requisition and specimen(s) are identified with the patient's name Josafat Calvo. Received in formalin, specimen A , are multiple pink-nolasco tissues, 0.2-0.8 cm in greatest dimension and 2.0 x 0.5 x 0.2 cm in aggregate, submitted in toto in cassette A1. DF 12/08/2022 1:54 PM [facility] Disclaimer The performance characteristics of all immunohistochemical and indirect immunofluorescence stains (if any) cited in this report were determined by the Histopathology Laboratory of [facility]. Some of these tests were developed by [...] the attending (teaching) pathologist. 12/08/2022 1:54 PM [facility] Embedded Images 12/08/2022 1:54 PM [facility] Biopsy, NOS POLYP / Unknown 12/07/2022 1 0:29 AM SOFTWARE INSTALLER 12/07/2022 12:46 PM SOFTWARE INSTALLER Comment:Pre-op diagnosis: Dark stools [R19.5] Colon cancer screening [Z12.11] Rae Mccormick MD LAB - PATHOLOGY/CYTOLOGY ORDERABLES [facility] [address] [place], [place] [address] [place] [address] * ENDOSCOPY, COLON, SCREENING (12/07/2022 10:04 AM SOFTWARE INSTALLER) Report Endoscopy POC Endoscopy Department Report _ [...] Procedure Code(s): ? --- Professional --- ? 12674, Colonoscopy, flexible; with removal of tumor(s), polyp(s), or ? other lesion(s) by snare technique Diagnosis Code(s): ?--- Professional --- ?Z86.010, Personal history of colonic polyps ?K63.5, Polyp of colon ?Z80.0, Family history of malignant neoplasm of ?digestive organs CPT copyright 2019 [employer]. All rights reserved. The codes documented in this report are preliminary and upon medical records coder review may be revised to meet current compliance requirements. Tal Mccormick, 12/07/2022 10:49:20 AM Note Initiated On: 12/07/2022 10:04 AM Number of Addenda: 0 ? [facility] ? [address] [place] [address] [facility] 12/07/2022 10:0 4 AM SOFTWARE INSTALLER Rae Mccormick MD GI PRO CEDURE ORDERABLES [facility] documented in this encounter Visit Diagnoses Diagnosis [...] (GI) $ New Bag/Syringe 12/07/2022 9:38 AM SOFTWARE INSTALLER 20 mL/h r 0.9% NaCl injection 3 mL 3 mL, Intracatheter, PRE-PROCEDURE MULTIPLE, Starting on Mon12/07/22 at 0913, Until Mon12/07/22 at 1237, For Saline Lock flushes if one is inserted for Bronchoscopy/Endoscopy procedure., Pre-procedure (GI) documented in this encounter Active and Recently Administered Medications Times are shown in SOFTWARE INSTALLER. Scheduled Medication Order 12/05/2022 12/06/2022 12/07/2022 0.9% [...] RN) documented in this encounter Care Teams Disc Pad Knockout Worker Relationship Specialty Start Date End Date Ian Pollock MD [address] DIV OF [facility] [place] [address] PCP - General 08/21/20 05/29/23 Katina Casiano DO [address] DIV OF [facility] INTERNAL [place], [place] Resident - PCP Internal Medicine 08/10/22 05/29/23 documented as of this encounter
--- OUTSIDE RECORDS SUMMARY | 2024-10-30 06:49 | XMS_ITS | Encounter Summary ---
Author Organization [facility] Address [address] [place] [address] Care Team Providers Care Element Winding Machine Tender Name Role Phone Ian Pollock MD Primary Care Provider [phone] Reason for Visit * Reason Onset Date Comments Cardiac Rehab 02/23/2022 Encounter Details Date Type Department Care Team (Late st Contact Info) Description 02/23/2022 Telephone [facility] [address] [place] [address] Elda Becker, wildlife management professor Social History Tobacco Use Types Packs/Day Years [...] Telephone Encounter - Elda Becker RN - 02/23/2022 2:57 PM CDT Pt calling to let us know since he didn't make it to his CR session today he walked at home in the hallway for 5min and at 4:17sec he developed some SOB and was huffing and puffing which resolved with rest. Pt also reports he went to the store for about 10min and did not develop any SOB. Pt to return to CR on Wednesday 02/28 @ 9am. documented in this encounter Plan [...] on filedocumented in this encounter Care Teams Element Winding Machine Tender Relationship Specialty Start Date End Date Ian Pollock MD [address] [place] [address] PCP - General 08/21/20 05/29/23 documented as of this encounter
--- OUTSIDE RECORDS SUMMARY | 2024-10-30 06:49 | XMS_ITS | Encounter Summary ---
Author Organization [facility] Health Address [address] [facility] [place] [address] Care Team Providers Care Retreader Name Role Phone Ian Pollock MD Primary Care Provider [phone] Katina Casiano DO Unavailable [phone] Reason for Visit * Reason Onset Date Comments Medication Prior Auth Request 12/29/2022 Encounter Details Date Type Department Care Team (Late st Contact Info) Description 12/29/2022 Telephone [facility] General Internal Medicine [address] [facility] [place] [address] Katina Casiano, [address] [place] [address] Medication Prior Auth Request Social [...] Telephone Encounter - Imelda Hoff LPN - 12/30/2022 6:52 AM PRODUCTION MACHINE TENDER PA was approved by insurance. Pharmacy notified. UCTION MACHINE TENDER * Telephone Encounter - Imelda Hoff LPN - 12/29/2022 3:32 PM PRODUCTION MACHINE TENDER Insurance requires prior auth for Eplereonone. Prior auth request submitted on line at [facility]. Office notes submitted with request Yes. Waiting for insurance response. Cover My Meds cooper:[id number] UCTION MACHINE TENDER documented in this encounter Plan of Treatment [...] on filedocumented in this encounter Care Teams Retreader Relationship Specialty Start Date End Date Ian Pollock MD [address] [place] [address] PCP - General 08/21/20 05/29/23 Katina Casiano DO [address] OF [facility] INTERNAL MEDICINE [place], [place] Resident - PCP Internal Medicine 08/10/22 05/29/23 documented as of this encounter
--- OUTSIDE RECORDS SUMMARY | 2024-10-30 06:49 | XMS_ITS | Encounter Summary ---
Author Organization [facility] Address [address] [place] [address] Care Team Providers Care Information Assurance Specialist Name Role Phone Ian Pollock MD Primary Care Provider [phone] Reason for Visit * Reason Onset Date Comments Cardiac Rehab 05/13/2022 Encounter Details Date Type Department Care Team (Late st Contact Info) Description 05/13/2022 Telephone [facility] [address] [place] [address] Ludivina Moore Cardiac Rehab Social History Tobacco Use Types Packs/Day Years [...] encounter Miscellaneous Notes * Telephone Encounter - TeresaLudivina berman - 05/13/2022 7:16 AM CDT Patient called to inform cardiac rehab staff that he was [facility]. Informed patient that cardiac rehab staff had discussed payment in detail to patient prior to re-enrolling a second time at their facility. Informed patient due to enrolling in [facility] twice as well as [facility] twice that he will be placed on a wait list if he would like to attend our facility. Patient shared frustration but demonstrated understanding. Patient was frustrated as he was given no answer if there was still blockage in his heart. Informed patient this is a discussion between himself and his MD, it does not involve cardiac rehab staff. Patient hung up phone. Ludivina Moore Cardiac Rehabilitaiton Library Clerk [email or web address] documented in this encounter Plan of [...] on filedocumented in this encounter Care Teams Information Assurance Specialist Relationship Specialty Start Date End Date Ian Pollock MD [address] OF [facility] [place] [address] PCP - General 08/21/20 05/29/23 documented as of this encounter
--- OUTSIDE RECORDS SUMMARY | 2024-10-30 06:49 | XMS_ITS | Encounter Summary ---
Author Organization [facility] Address [address] [place] [address] Care Team Providers Care Tower Climber Name Role Phone Ian Pollock MD Primary Care Provider [phone] Katina Casiano DO Unavailable [phone] Reason for Visit * Reason Comments Follow-up Encounter Details Date Type Department Care Team (Late st Contact Info) Description 12/29/2022 2:00 PM CORPORATE STRATEGIST Office Visit [facility] General Internal Medicine [address] [facility], [facility] [place] [address] Katina Casiano DO [address] [place] [address] Healthcare maintenance (Primary Dx); Gastroesophageal reflux disease without esophagitis; Tobacco abuse; Sleep apnea, unspecified type; Heart failure with reduced ejection fraction (HCC); Fatigue, unspecified type; Gynecomastia; Asthma-COPD overlap syndrome (CMS/HCC); Essential hypertension Social History Tobacco Use Types Packs/Day Years [...] Sign Reading Time Taken Comments Blood Pressure 136/89 12/29/2022 2:02 PM CORPORATE STRATEGIST Pulse 89 12/29/2022 2:02 PM CORPORATE STRATEGIST Temperature 36.3 ??C (97.3 ??F) 12/29/2022 2:02 PM CS T Respiratory Rate - - Oxygen Saturation 92% 12/29/2022 2:02 PM CORPORATE STRATEGIST Inhaled Oxygen Concentration - - Weight 108 kg (238 lb) 12/29/2022 2:02 PM CORPORATE STRATEGIST Height 175.3 cm (5' 9 ) 12/29/2022 2:02 PM CORPORATE STRATEGIST Body Mass Index 35.15 12/29/2022 2:02 PM CORPORATE STRATEGIST documented in this encounter Functional Status Functional [...] this encounter Patient Instructions * Patient Instructions* Katina Casiano DO - 12/29/2022 2:02 PM CORPORATE STRATEGIST To-Do: -- Tdap & Shingles vaccine at local pharmacy -- Good Rx for Eplerenone coverage -- Gordon E-cigarette to curb nicotine craving -- Weight loss and exercise -- Reschedule Sleep Study [facility] is a Patient Centered Medical Home (PCMH) recognized practice. PCMH is a model of care that puts patients at the forefront of care. PCMH centers build better relationships between patients and their clinical care teams. Practices that earn this recognition have made a commitment to continuous quality improvement and a patient-centered approach to care. [facility] Internal Medicine is committed to providing [...] for your doctor, the office phone is [phone]. You will be given options to get [...] primary care provider. Please call us at [phone], option 1, then option 1 in the morning you would like to be seen. Our fax number is [phone]. Instructions for reaching the practice after office hours For urgent concerns that cannot wait until phone lines are open on the next business day, please call [phone] to speak to the covering General Internal Medicine provider. Identify yourself as a patient in our practice and give the roll line operator your doctor's name. The roll line operator will contact the physician amusement or recreation card checker. You can generally expect a return call within 30 minutes. Prescription Refills Contact your pharmacy to request all refills. You may also send a SlideRocket message for refills. Please allow a minimum of 48-72 hours for your prescription to be completed. Your pharmacy will notify you when your prescription is ready to be picked up. SCHEDULE YOUR OWN APPOINTMENT AT [facility] We are excited to announce that some [facility] appointments can now be scheduled online. If you are not able to access the type of appointment that you need using this service, our [facility] Scheduling department will be happy to continue to serve you. Use one of these options to schedule your next appointment today: Access self-scheduling options by visiting the [facility] Online Scheduling Webpage. Make an appointment by calling [facility] Central [phone] Visit our website at [email or web address] for information about our practice and an interactive health encyclopedia. ORATE STRATEGIST documented in this encounter Progress Notes * Katina Casiano DO - 12/29/2022 1:50 PM CST Images from the original note were not included. [facility] Medicine at [facility] CONTINUITY CLINIC: ESTABLISHED PATIENT NOTE 01/04/2023 CC: Chief Complaint Patient presents with ??? Follow-up ASSESSMENT AND PLAN: Problem List Items Addressed This Visit Cardiovascular Essential hypertension - Stable, despite holding spirono due to gynecomastia - Eplerenone denied, will retry. Discussed with patient about good Rx - If further denial, will discuss with Dr. Lomas. May benefit from change to SGLT2i with or w/o MRA Heart failure with reduced ejection fraction (CMS/HCC) - See HTN above - Pt not taking Spirono due to gynecomastia. Will attempt eplerenone - Remains on ASA, Statin, Coreg - No MARINA/ARB - Follows with Nicole Morales, Dr. Lomas Relevant Medications eplerenone (Inspra) 25 MG tablet Other Relevant Orders TSH+FREE T4 PANEL Respiratory Asthma-COPD overlap syndrome (CMS/HCC) - Tob cessation Sleep apnea - sleep study pending Relevant Orders Ref to Sleep Studies - Salus Gastrointestinal Gastroesophageal reflux disease without esophagitis - Likely sleep-related, obesity, SHAYNE - Cont. PPI Relevant Medications omeprazole (PriLOSEC) 40 MG capsule Breast Problems Gynecomastia - Will try to resend Eplerenone, previously denied Relevant Orders TSH+FREE T4 PANEL Behavioral/Psychiatric Tobacco abuse - Encouraged cessation, ready to quit - Chantix Relevant Medications varenicline (Chantix Starting Month Kojo) 0.5 MG X 11 & 1 MG X 42 tablets Other Healthcare maintenance - Primary - Due for TDap, Zoster, Covid outside - Due for HIV screening - Urged tobacco cessation, rx chantix Relevant Orders TSH+FREE T4 PANEL Fatigue - Check TSH - pending sleep study - DDx: multi -- age/debility vs. thyroid vs. shayne/ohs vs. HF Relevant Orders TSH+FREE T4 PANEL SUBJECTIVE History of Present Illness: Josafat Calvo is a 62 year old male presenting to [facility] for: establish care PMHx obesity, HTN, non-obstructive CAD (50% LCx), 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 GI, Dr. Pollock/Oh: 10/2021: LBP, herniated disc -- incr gabapentin; weight up, low exercise 06/2022: Dark stool (c-scope 11/2022 + 4x asc. polyps, rep 3-5yrs); dark urine & neurop (neg CK, metabolic panel); Gynecomastia (attempted switch from spirono > Eplerenone but denied by insurance); rec weight loss and tobacco cessation Ortho, Dr. Perry: ALBA, OA, L hip trochanteric bursitis 02/2022: bursa injection, PT, recs for NSAID 08/2022: L trochanteric bursitis injection Cardiology, Nicole Morales: 05/2022: HF (coreg, aldactone); PAD (ASA, atorva) 09/2022: Cont. same, no mention re: MRA change Urology, Florence Ojeda: 12/2021: Alfuzosin (BPH), Viagra (ED) 10/2022: Incr straining and refractory ED, cont. Alfluzosin and changed to Vardenafil for ED Sleep Med, Dr. Duarte: SHAYNE, fatigue 11/2021: Plan for Polysomnography then Multiple Sleep Latency Test Today, we discussed the following: SOB qhs/cough, daytime fatigue: Pending sleep study (reordered) Sleep Study: Unable to get transportation in evening. Will try to uber. Fatigue: Check TSH, likely SHAYNE however Tobacco use: Very motivated to quit smoking. Wants to try NRTs and Chantix Gynecomastia: Eplerenone denied, will retry. Not taking currently. Denies CP. Minimal swelling present. HM: Due Tdap, Zoster, Covid #3;enocurage tobacco cessation, will attempt chantix Review of Systems All other systems reviewed and are negative. Past Med/Surg/Fam/Soc History: Reviewed and updated in [facility] History Allergies & Medications: Reviewed and updated in [facility] Allergies & Medications OBJECTIVE VITALS BP 136/89 Pulse 89 Temp 97.3 ??F (36.3 ??C) (Temporal) Ht 1.753 m (5' 9 ) Wt 108 kg (238 lb) SpO2 92% Physical Exam Vitals reviewed. Constitutional: General: He [...] tenderness or left CVA tenderness. Musculoskeletal: General: No tenderness. Right lower leg: No edema. Left lower leg: No edema. Skin: General: Skin is warm and dry. Findings: No lesion. Neurological: General: No focal deficit present. Mental Status: He is alert and oriented to person, place, and time. Psychiatric: Mood and Affect: Mood normal. Thought Content: Thought content normal. Lab Data: Reviewed, pertinent for: CBC: Recent Labs Component Name 08/09/22 1347 11/08/21 1021 06/17/20 0901 WBC 6.7 6.9 6.5 HGB 13.1* 14.6 13.3* HCT 41.1 45.1 40.9 PLTCOUNT 191 222 227 BMP: Recent Labs Component Name 08/09/22 1347 01/04/21 1318 06/17/20 0901 04/23/20 1218 SODIUM 138 136 - 138 POTASSIUM 3.4* 4.2 3.9 4.2 CHLORIDE 103 102 - 104 CO2 26 24 21* 24 BUN 8 9 9 9 CREATININE 0.78 0.87 0.8 1.09 GLUCOSE 112* 94 91 88 CALCIUM 9.0 9.5 9.3 10.0 Coagulation: Recent Labs Component Name 06/17/20 0901 PT 13.6 INR 1.1 Hepatic function: Recent Labs Component Name 08/09/22 1347 07/25/19 0935 07/25/19 0000 ALBUMIN 3.9 4.1 - ALKPHOS 105 108 - [id number] - - 108 ALT 38 20 20* AST 31 17 17 TBIL 0.4 0.3 - TPROT 6.6 6.7 - TSH: Recent Labs Component Name 09/19/19 0917 TSH 0.66 Recent Labs Component Name 11/18/22 0937 01/18/22 0812 09/29/20 0000 NITRITE neg neg neg Recent Labs Lab 01/04/21 1318 [...] Screening Status Notes Colorectal Cancer 45-75 q10y Actively managed problem Due 4131-2221 -2022: 4x asc polyps -2011: polyps Lung Cancer 50-80 if 20py + current/quit w/i 15y Actively managed problem 2x RLL nodules, stable - DUE 2022 (yearly) HIV 15-65 once, all pts To be addressed DUE NOW HEP C 18-79 once, all pts Complete NEG, 2018 Diabetes 35-70, all pts; younger if overweight/high risk Complete A1c 5.7 (2019) Lipids (* high risk) M: 25*/35 (q5) W: 35*/45 (q5) Complete WNL Depression Complete PHQ-2: PHQ-9: Statin in CVD/ASA Primary Prevention: Actively managed problem Statin: 40-75 if 1+ RF (HLD, HTN, DM, smoke) PLUS >10% ASCVD risk Atorva 40 in setting of CHF ASA: 50-59 with >/= 10% ASCVD, 10y life expectancy, compliance for 10yrs ASA 81 The ASCVD Risk score (Ernesto RENEE, et al., 2019) failed to calculate for the following reasons: The valid total cholesterol range is 130 to 320 mg/dL Male Specific Prostate Cancer Screening Discussion: Complete 40 if high risk (black, Fhx); 50 if avg. risk; Uro if PSA >4 AAA Screening: Not recommended: Age 65-75 if EVER smoked ----- Return to Clinic in 6 months Patient discussed with attending physician, Dr. Hurley. Katina Casiano DO, MS Internal Medicine PGY-3 Pager: [phone] 01/04/23 2:30 PM Associated attestation - Jameel Hurley III, MD - 01/14/2023 11:22 AM CDT Attending Physician Attestation I discussed the patient and reviewed the resident's note at the time of the visit and I agree with history, physical exam, assessment, and plan. Date of service: 12/29/2022 Jameel Hurley III, MD documented in this encounter Plan of Treatment Scheduled Orders Name Type Priority Associated Diagnoses Orde r Schedule TSH+FREE T4 PANEL Lab Routine Healthcare maintenance Heart failure with reduced ejection fraction (HCC) Fatigue, unspecified type Gynecomastia Ordered: 12/29/2022 documented as of this encounter Goals Goal Patient Goal Type Associated Problems Recent Progress Patient-Stated? Author Mobility General No Stephanie Gallegos, RN Note: Expected end date: *10/30/2019 The goal is to maintain or improve your mobility at the optimum level for you. Interventions: documented as of this encounter Visit Diagnoses Diagnosis Healthcare maintenance- Primary Routine general medical examination at a health care facility Gastroesophageal reflux disease without esophagitis Esophageal reflux Tobacco abuse Tobacco use disorder Sleep apnea, unspecified type Heart failure with reduced ejection fraction (HCC) Fatigue, unspecified type Gynecomastia Hypertrophy of breast Asthma-COPD overlap syndrome (HCC) Essential hypertension * Assessment & Plan Note - Katina Casiano DO - 01/04/2023 2:27 PM CORPORATE STRATEGIST Associated Problem(s): Fatigue - Check TSH - pending sleep study - DDx: multi -- age/debility vs. thyroid vs. shayne/ohs vs. HF ORATE STRATEGIST * Assessment & Plan Note - Katina Casiano DO - 01/04/2023 2:26 PM CORPORATE STRATEGIST Associated Problem(s): Sleep apnea - sleep study pending ORATE STRATEGIST * Assessment & Plan Note - Katina Casiano DO - 01/04/2023 2:26 PM CORPORATE STRATEGIST Associated Problem(s): Healthcare maintenance - Due for TDap, Zoster, Covid outside - Due for HIV screening - Urged tobacco cessation, rx chantix ORATE STRATEGIST * Assessment & Plan Note - Katina Casiano DO - 01/04/2023 2:25 PM CORPORATE STRATEGIST Associated Problem(s): Gastroesophageal reflux disease without esophagitis - Likely sleep-related, obesity, SHAYNE - Cont. PPI ORATE STRATEGIST * Assessment & Plan Note - Katina Casiano DO - 01/04/2023 2:19 PM CORPORATE STRATEGIST Associated Problem(s): Gynecomastia - Will try to resend Eplerenone, previously denied ORATE STRATEGIST * Assessment & Plan Note - Katina Casiano DO - 01/04/2023 2:18 PM CORPORATE STRATEGIST Associated Problem(s): Asthma-COPD overlap syndrome (HCC) - Tob cessation ORATE STRATEGIST * Assessment & Plan Note - Katina Casiano DO - 01/04/2023 2:15 PM CORPORATE STRATEGIST Associated Problem(s): Heart failure with reduced ejection fraction (HCC) - See HTN above - Pt not taking Spirono due to gynecomastia. Will attempt eplerenone - Remains on ASA, Statin, Coreg - No MARINA/ARB - Follows with Dr. Cesilia Cedillo ORATE STRATEGIST * Assessment & Plan Note - Katina Casiano DO - 01/04/2023 2:13 PM CORPORATE STRATEGIST Associated Problem(s): Essential hypertension - Stable, despite holding spirono due to gynecomastia - Eplerenone denied, will retry. Discussed with patient about good Rx - If further denial, will discuss with Dr. Lomas. May benefit from change to SGLT2i with or w/o MRA ORATE STRATEGIST * Assessment & Plan Note - Katina Casiano DO - 01/04/2023 2:13 PM CORPORATE STRATEGIST Associated Problem(s): Tobacco abuse - Encouraged cessation, ready to quit - Chantix ORATE STRATEGIST documented in this encounter Care Teams Tower Climber Relationship Specialty Start Date End Date Ian Pollock MD [address] [place] [address] PCP - General 08/21/20 05/29/23 Katina Casiano DO [address] DIV OF [facility] INTERNAL MEDICINE [place], [place] Resident - PCP Internal Medicine 08/10/22 05/29/23 documented as of this encounter
--- OUTSIDE RECORDS SUMMARY | 2024-10-30 06:49 | XMS_ITS | Encounter Summary ---
Author Organization [facility] Address [address] [place] [address] Care Team Providers Care Wildland Firefighter Name Role Phone Ian Pollock MD Primary Care Provider [phone] Reason for Visit * Reason Comments Refill Request Encounter Details Date Type Department Care Team (Late st Contact Info) Description 06/10/2022 Refill [facility] [address] [place] [address] Agnieszka Haas MD [address] [place] [address] Refill Request Social History Tobacco Use Types [...] * Telephone Encounter - Ivan Madsen - 06/14/2022 3:13 PM CDT NOV:09/30/22 EDELMIRA:03/30/22 RTC in 6 MONTHS Medication/Ointment: atorvastatin (LIPITOR) 40 MG tablet Disp Qty: 90TAB Refills Remainin Ivan Madsen MA documented in this encounter Plan of Treatment [...] on filedocumented in this encounter Care Teams Wildland Firefighter Relationship Specialty Start Date End Date Ian Pollock MD [address] [place] [address] PCP - General 08/21/20 05/29/23 documented as of this encounter
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
--- OUTSIDE RECORDS SUMMARY | 2024-10-30 06:49 | XMS_ITS | Encounter Summary ---
Author Organization [facility] Address [address] [facility] [place] [address] Care Team Providers Care Photographer Name Role Phone Ian Pollock MD Primary Care Provider [phone] Reason for Visit * Reason Onset Date Comments Results 02/21/2022 Encounter Details Date Type Department Care Team ([facility] Contact Info) Description 02/21/2022 Telephone [facility], Critical Care and Sleep Medicine [address] [facility] [place] [id number] Aliza Hammer, RN Results Social History Tobacco Use Types Packs/Day [...] encounter Miscellaneous Notes * Telephone Encounter - Aliza Hammer RN - 02/21/2022 12:23 PM CDT Patient called clinic requesting that provider call him back to discuss CT results. documented in this encounter Plan of Treatment [...] on filedocumented in this encounter Care Teams Photographer Relationship Specialty Start Date End Date Ian Pollock MD [address] [place] [address] PCP - General 08/21/20 05/29/23 documented as of this encounter
--- OUTSIDE RECORDS SUMMARY | 2024-10-30 06:49 | XMS_ITS | Encounter Summary ---
Author Organization [facility] Address [address] [facility] [place] [address] Care Team Providers Care Health Physics Technician Name Role Phone Ian Pollock MD Primary Care Provider [phone] Reason for Visit * Radiology Services (Routine) - Closed Specialty Diagnoses / Procedures Referred By Contac t Referred To Contact Echosonography Diagnoses Dyspnea, unspecified type Procedures ECHO COMPLETE Bridget Lomas MD [address], [place] [address] [facility] [address] [facility], [address] [address] Referral ID Status Reason Start Date Expiration Date Visits Re quested Visits Authorized [id number] Closed 01/19/2022 01/19/2023 1 1 Encounter Details Date Type Department Care Team (Late st Contact Info) Description 02/07/2022 8:00 AM CDT Ancillary Procedure [facility] [address] [facility], [address] [facility] [place], [place] [id number] Bridget Lomas MD Social History Tobacco Use Types Packs/Day Years [...] DIANT documented in this encounter Visit Diagnoses Not on filedocumented in this encounter Care Teams Health Physics Technician Relationship Specialty Start Date End Date Ian Pollock MD [address] [place] [address] PCP - General 08/21/20 05/29/23 documented as of this encounter
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
--- OUTSIDE RECORDS SUMMARY | 2024-10-30 06:49 | XMS_ITS | Encounter Summary ---
Author Organization [facility] Address [address] [facility] [place] [address] Care Team Providers Care Labels Molder Name Role Phone Ian Pollock MD Primary Care Provider [phone] Katina Casiano DO Unavailable [phone] Reason for Visit * Reason Onset Date Comments Medication Prior Auth Request 08/12/2022 Encounter Details Date Type Department Care Team (Late st Contact Info) Description 08/12/2022 Telephone [facility] General Internal Medicine [address] [facility] [place] [address] Katina Casiano, [address] [place] [address] Medication Prior Auth Request Social [...] Telephone Encounter - Imelda Hoff LPN - 08/12/2022 10:55 AM CDT PA was denied by insurance. Pharmacy notified. Appeal info placed in providers box. * Telephone Encounter - Imelda Hoff LPN - 08/12/2022 9:06 AM CDT Insurance requires prior auth for Eplerenone. Prior auth request submitted on line at [employer]. Office notes submitted with request Yes. Waiting for insurance response. Cover My Meds cooper:[id number] documented in this encounter Plan of Treatment [...] on filedocumented in this encounter Care Teams Labels Molder Relationship Specialty Start Date End Date Ian Pollock MD [address] DIV OF [facility] [place] [address] PCP - General 08/21/20 05/29/23 Katina Casiano DO [address] DIV OF [facility] INTERNAL MEDICINE [place], [place] Resident - PCP Internal Medicine 08/10/22 05/29/23 documented as of this encounter
--- OUTSIDE RECORDS SUMMARY | 2024-10-30 06:49 | XMS_ITS | Encounter Summary ---
Author Organization [facility] Address [address] [facility] [place] [address] Care Team Providers Care Shellfish Meat Separator Operator Name Role Phone Ian Pollock MD Primary Care Provider [phone] Encounter Details Date Type Department Care Team ([facility] st Contact Info) Description 01/27/2022 9:49 AM CDT - 01/27/2022 11:59 PM CDT Hospital Encounter [facility] DIAGNOSTIC RAD [facility] [address] [facility] [place] [address] Ga Malik MD [address] [facility] [place] [address] Discharge Disposition: Home or Self Care Social [...] Name Priority Date/Time Associated Diagnosis Comments XR HIP LEFT 2VW OR MORE Routine 01/27/2022 9:52 AM CDT Left hip pain documented in this encounter Results * XR HIP LEFT 2VW OR MORE (01/27/2022 9:52 AM CDT) Anatomical Region Laterality Modality Pelvis, Lower Extremity [facility] 01/27/2022 10:2 1 AM CDT Impressions [...] documented in this encounter Visit Diagnoses Diagnosis Left hip pain Pain in joint, pelvic region and thigh documented in this encounter Care Teams Shellfish Meat Separator Operator Relationship Specialty Start Date End Date Ian Pollock MD [address] [place] [address] PCP - General 08/21/20 05/29/23 documented as of this encounter
--- OUTSIDE RECORDS SUMMARY | 2024-10-30 06:49 | XMS_ITS | Encounter Summary ---
Author Organization [facility] Address [address] [facility] [place] [address] Care Team Providers Care Router Operator Radial Name Role Phone Ian Pollock MD Primary Care Provider [phone] Reason for Visit * Reason Onset Date Comments MEDICATION REFILL 06/23/2022 Encounter Details Date Type Department Care Team (Late st Contact Info) Description 06/23/2022 Refill [facility] [address] [facility] [address] [place] [address] Sayed Torres Blankenship MD [address] [place] [address] [place] [address] MEDICATION REFILL Social History Tobacco Use Types [...] Telephone Encounter - Maxine Stroud RN - 06/23/2022 3:22 PM CDT Received electronic refill request from pharmacy for lipitor. Last seen 03/30/2022 Sayed Torres Blankenship MD ASA STATIN Has appt 06/29 with Nicole JOB SITE SUPERINTENDENT Refilled per protocol documented in this encounter [...] on filedocumented in this encounter Care Teams Router Operator Radial Relationship Specialty Start Date End Date Ian Pollock MD [address] OF [facility] [place] [address] PCP - General 08/21/20 05/29/23 documented as of this encounter
--- OUTSIDE RECORDS SUMMARY | 2024-10-30 06:49 | XMS_ITS | Encounter Summary ---
Author Organization [facility] Address [address] [facility] [place] [address] Care Team Providers Care Carpenter Mate Name Role Phone Ian Pollock MD Primary Care Provider Reason for Visit * Reason Comments Refill Request Encounter Details Date Type Department Care Team (Late st Contact Info) Description 07/12/2022 Refill [facility], Critical Care and Sleep Medicine [address] [place] [address] Agnieszka Haas MD [address] [place] [address] Refill Request Social History Tobacco Use Types [...] * Telephone Encounter - Ivan Madsen - 07/12/2022 8:40 AM CDT NOV:TBS EDELMIRA:11/11/21 RTC in 6 MONTHS Medication/Ointment: albuterol HFA (PROVENTIL; VENTOLIN; PROAIR) 108 (90 Base) MCG/ACT inhaler Disp Qty: 18G Refills Remainin Ivan Madsen MA documented in [...] Diagnoses Diagnosis Centrilobular emphysema (HCC) Other emphysema documented in this encounter Care Teams Carpenter Mate Relationship Specialty Start Date End Date Ian Pollock MD [address] [facility] [address] [facility] [place] [address] PCP - General 08/21/20 05/29/23 documented as of this encounter
--- OUTSIDE RECORDS SUMMARY | 2024-10-30 06:49 | XMS_ITS | Encounter Summary ---
Author Organization [facility] Address [address] [facility] [place] [address] Care Team Providers Care Counter Intelligence Technician Name Role Phone Ian Pollock MD Primary Care Provider [phone] Katina Casiano DO Unavailable [phone] Reason for Visit * Reason Onset Date Comments Medication Issue 08/16/2022 Encounter Details Date Type Department Care Team (Late st Contact Info) Description 08/16/2022 Telephone [facility] General Internal Medicine [address] [facility] [address] Katina Casiano, DO [address] [place] [address] Medication Issue Social History Tobacco Use Types [...] Telephone Encounter - Ian Pollock MD - 08/24/2022 12:40 PM CDT Images from the original note were not included. Katina Casiano, DO You; Radha Jones, ALYX; Bridget Lomas MD; Nicole Morales, BLUEPRINT MAKER-MASSAGE OPERATOR 18 hours ago (6:20 PM) [place] - Denial for eplerenone (spironolactone replacement) received. Called nan to discuss denial and did not get far (yet). I called patient and told him he would need to request/designate me to filean appeal on his behalf. - Currently he is not taking spironolactone because of gynecomastia. I will add his cardiology teamto this message to keep in loop. [place] suggested Losartan or Enalapril instead, however patient w/ anaphylactic rxn to Lisinopril which I will explain. He was appreciative of my time. ?? Thank you all, -Katina * Telephone Encounter - Radha Jones RN - 08/16/2022 11:25 AM CDT Incoming fax from pharmacy RE: eplerenone. PA was denied. Per pharmacy pt also has prescription forspironolactone. May they fill this it's place? documented in this encounter Plan of Treatment [...] on filedocumented in this encounter Care Teams Counter Intelligence Technician Relationship Specialty Start Date End Date Ian Pollock MD [address] [facility] [address] OF [facility] [place] [address] PCP - General 08/21/20 05/29/23 Katina Casiano DO [address] [facility] [address] DIV OF [facility] INTERNAL MEDICINE [place] Resident - PCP Internal Medicine 08/10/22 05/29/23 documented as of this encounter
--- OUTSIDE RECORDS SUMMARY | 2024-10-30 06:49 | XMS_ITS | Encounter Summary ---
Author Organization [facility] Address [address] [place] [address] Care Team Providers Care Asphalt Spreader Operator Name Role Phone Ian Pollock MD Primary Care Provider Encounter Details Date Type Department Care Team ([facility] Contact Info) Description 02/28/2022 9:45 AM CDT Cardiac Rehab [facility] [address] [place] [address] Congestive heart failure, unspecified HF chronicity, unspecified heart failure type (HCC) Social History Tobacco Use Types Packs/Day [...] as of this encounter Progress Notes * Una Raines, ALYX - 02/28/2022 1:17 PM CDT See Daily Exercise Activity Log in Media. Patient reports SOB and Left hip pain after walking 4 minutes on treadmill. Patient stated that he had been walking 5 minutes 2 times daily. Patient stated that he becomes SOB usually after 5 minutes of walking. Patient's weight had decreased 4.6 lbs since last Cardiac rehab session. Patient stated that he had spoken to Smoking Cessation specialist and decreased to 7 cigarettes per day. Patient had increased RPM to 70 on RB and rated RPE 15. Patient wasinstructed to decreased RPM to 50 to 60. Patient tolerated exercise without complaints of CP or SOBupon discharge from Cardiac Rehab. VSS upon discharge from Cardiac Rehab. documented in this encounter Plan of Treatment [...] chronicity, unspecified heart failure type (HCC)- Primary documented in this encounter Care Teams Asphalt Spreader Operator Relationship Specialty Start Date End Date Ian Pollock MD [address] [place] [address] PCP - General 08/21/20 05/29/23 documented as of this encounter
--- OUTSIDE RECORDS SUMMARY | 2024-10-30 06:49 | XMS_ITS | Encounter Summary ---
Author Organization [facility] Address [address] [facility] [address] Care Team Providers Care Product Safety Engineer Name Role Phone Ian Pollock MD Primary Care Provider [phone] Reason for Visit * Reason Comments Low Back Pain Encounter Details Date Type Department Care Team (Late st Contact Info) Description 01/27/2022 9:00 AM CDT Office Visit [facility] - Orthopedics [address] [place] [address], [place] [address] Ga Malik MD [address] [place] [address] [place] [address] Lumbar foraminal stenosis (Primary Dx); Spondylolisthesis at L4-L5 level; Left hip pain; Trochanteric bursitis of left hip Social History [...] - Inhaled Oxygen Concentration - - Weight 108.4 kg (239 lb) 01/27/2022 9:18 AM CDT Height 175.3 cm (5' 9 ) 01/27/2022 9:18 AM CDT Body Mass Index 35.29 01/27/2022 9:18 AM CDT documented in this encounter Functional [...] this encounter Patient Instructions * Patient Instructions* Natalie Freeman - 01/27/2022 9:[address] [facility] Department of Orthopaedic Surgery Orthopaedic Spine Clinic Discharge Form Josafat Calvo 01/27/2022 Thank you for coming in to see us today for your diagnosis of: Lumbar foraminal stenosis Spondylolisthesis at L4-L5 level Left hip pain - Plan: XR HIP LEFT 2VW OR MORE, AMB REFERRAL TO PAIN CLINIC, Ref to [facility]opedics - [facility] Trochanteric bursitis of left hip - Plan: AMB REFERRAL TO PAIN CLINIC, Ref to [facility]opedics - [facility] Recommended Treatment: - Referral to pain clinic for left trochanteric bursa injection - Schedule a follow-up with our Joint surgeon after your injection Please follow-up in spine clinic as needed Mr. Calvo had a clinic appointment on 01/27/2022. Please call Natalie Freeman at [phone] with any questions or concerns. documented in this encounter Progress Notes * Faustino Gregory MD - 01/27/2022 9:43 AM CDT [facility] Orthopedic Spine Surgery Clinic Note Josafat Calvo, 61 year old, male : 1960 [address]: [id number] Primary Care Physician: Ian Pollock MD Diagnosis/Procedures 1.) Lumbar stenosis 2.) Left hip pain/left trochanteric bursitis HPI Date of this clinic visit: 01/27/2022 This is a 61 year old male with history of the above who is here for a follow-up clinic appointment. He was last seen in March 2020 at which time he complained that his back pain was worse in his low back and radiated to the back of both thighs. He also had some hip pain. Today, he states that he ishaving no back pain and no radicular symptoms. His main complaint today is left hip pain. He can ambulate without back pain but his left hip limits him. He denies any weakness in his legs. Denies newnumbness/paresthesias or bowel/bladder retention or incontinence. ROS otherwise negative. He follows with cardiology for left lower extremity claudication. Smoking status: current, 1ppd Pertinent Background Information: Diabetic: no Objective Ht 1.753 m (5' 9 ) Wt 108.4 kg (239 lb) BMI 35.29 kg/m2 PMHx Past Medical History: Diagnosis Date ??? Acute [...] ??? Head injury [address] [facility] ??? Heart failure with reduced [...] Sleep talking 01/05/2022 ??? Tobacco abuse 11/06/2017 PSHx Past Surgical History: Procedure Laterality Date ??? ENDOSCOPY, COLON, DIAGNOSTIC ??? HAND SURGERY Left ??? Knee Replacement Right Social Hx Social History Tobacco Use ??? Smoking status: Current Every Day Smoker Packs/day: 1.00 Years: 30.00 Pack years: 30.00 Types: Cigarettes ??? Smokeless tobacco: Never Used Substance Use Topics ??? Alcohol use: Yes Alcohol/week: 6.0 standard drinks Types: 6 Cans of beer per week Comment: beer madi. 25 oz 3 times a week Family Hx family history includes Cancer - Colon in his mother; Cancer - Lung (age of onset: 53) in his brother; Cancer - Other in his brother; Heart Failure in his father; Hypertension in his sister. Allergies Allergies Allergen Reactions ??? Lisinopril Anaphylaxis ??? Pcn [Penicillins] Anaphylaxis ??? Penicillin G Swelling Medications Current Outpatient Medications Medication ??? albuterol (PROVENTIL;VENTOLIN) (2.5 MG/3ML) 0.083% nebulizer solution ??? albuterol HFA (PROVENTIL; VENTOLIN; PROAIR) 108 (90 Base) MCG/ACT inhaler ??? alfuzosin CR 24hr (UROXATRAL) 10 MG tablet ??? ASPIRIN LOW DOSE 81 MG chew tablet ??? atorvastatin (LIPITOR) 40 MG tablet ??? budesonide-formoterol (SYMBICORT) 160-4.5 MCG/ACT inhaler ??? carvedilol (COREG) 12.5 MG tablet ??? fluticasone propionate (FLONASE) 50 MCG/ACT nasal spray ??? gabapentin (NEURONTIN) 300 MG capsule ??? hydroCHLOROthiazide (HYDRODIURIL) 25 MG tablet ??? hydrOXYzine pamoate (VISTARIL) 100 MG capsule ??? lamoTRIgine (LAMICTAL) 100 MG tablet ??? nicotine polacrilex (COMMIT) 4 MG lozenge ??? nicotine polacrilex (NICORETTE) 4 MG gum ??? omeprazole (PRILOSEC) 20 MG capsule ??? Pseudoephedrine-Guaifenesin (MUCINEX D PO) ??? sildenafil (VIAGRA) 100 MG tablet ??? spironolactone (ALDACTONE) 50 MG tablet ??? tiotropium (SPIRIVA RESPIMAT) 2.5 MCG/ACT inhaler ??? ziprasidone (GEODON) 40 MG capsule No current facility-administered medications for this visit. Review of Systems - Bowel/Bladder incontinence or retention: Denies - Numbness/paresthesias to extremities: as above - Hand clumsiness/loss of fine motor skills: Denies - Balance problems: Denies Review of all other systems was negative. Physical Exam General appearance: awake, cooperative, NAD Back: -Tenderness to palpation: absent Posture - Erect posture with no cervical thrust, list, or torticollis noted Bilateral Lower Extremity: - Motor: Hip Flexion (L2/3) 5/5 Knee Flexion 5/5 Knee Extension (L4) 5/5 Ankle Dorsiflexion (L5) 5/5 Great Toe Extension (L5) 5/5 Ankle Plantarflexion (S1) 5/5 - Sensation: Intact to light touch distally - Straight Leg Raise: negative bilaterally - Clonus: absent - Reflexes: Knee Jerk: Normal Achilles: Normal Babinski: Deferred Gait - Walks with reciprocal heel/toe gait. Imaging - X-rays of the lumbar spine taken and reviewed. Demonstrate diffuse multisegmental spondylosis. Grade 1 anterolisthesis of L3-4 and L4-5. - X-rays of the left hip taken and reviewed. Demonstrates mild osteoarthritic changes. Assessment/Plan: Josafat Calvo is a 61 year old male with Lumbar stenosis and left trochanteric bursitis - Patient was counseled to the nature of their diagnosis and demonstrated understanding - Lifting/Activity restrictions: none - Left trochanteric bursa injection ordered - Follow up in the joints clinic after left trochanteric bursa injection - Follow up with spine as needed - Follow up Imaging: none Faustino Gregory MD 01/27/2022 Associated attestation - Ga Malik MD - 01/27/2022 11:19 AM CDT I personally saw, evaluated, examined and participated in the management of this patient during their clinic visit. I have reviewed all radiographic studies. I reviewed the resident's clinic note, made appropriate edits and additions and agree with the remainder of their findings. Please see their note for further details. I confirm the cooper elements of the history. I have discussed the results ofthe physical exam and all studies with the patient. I personally developed the noted assessment anddiscussed it with them. I confirm the cooper elements of the plan of care. Please do not hesitate to contact me with questions regarding him or any other patient in the future. Our clinical specialist, Natalie Freeman, can be reached at [phone]. Sincerely, Ga Malik MD documented in this encounter Plan of Treatment Not on file documented as of this encounter Goals Goal Patient Goal Type Associated Problems Recent Progress Patient-Stated? Author Mobility General No Stephanie Gallegos RN Note: Expected end date: *10/30/2019 The goal is to maintain or improve your mobility at the optimum level for you. Interventions: documented as of this encounter Results * XR HIP LEFT [...] documented in this encounter Visit Diagnoses Diagnosis Lumbar foraminal stenosis- Primary Spinal stenosis, lumbar region, without neurogenic claudication Spondylolisthesis at L4-L5 level Left hip pain Pain in joint, pelvic region and thigh Trochanteric bursitis of left hip Enthesopathy of hip region Left hip pain Pain in joint, pelvic region and thigh documented in this encounter Care Teams Product Safety Engineer Relationship Specialty Start Date End Date Ian Pollock MD [address] OF [facility] [place] [address] PCP - General 08/21/20 05/29/23 documented as of this encounter
--- OUTSIDE RECORDS SUMMARY | 2024-10-30 06:49 | XMS_ITS | Encounter Summary ---
Author Organization [facility] Address [address] [facility] [place] [address] Care Team Providers Care Welding Machine Operator Gas Metal Arc Name Role Phone Ian Pollock MD Primary Care Provider [phone] Katina Casiano DO Unavailable [phone] Reason for Visit * Reason Onset Date Comments Med Question 11/21/2022 Encounter Details Date Type Department Care Team (Late st Contact Info) Description 11/21/2022 Telephone [facility] [address] [facility] [address] [place] [address] Maxine Stroud, ALYX Med Question Social History Tobacco Use Types [...] Telephone Encounter - Maxine Stroud RN - 11/21/2022 3:54 PM CST Patient called and left message stating that he was on spironolactone but it was changed to something else. Insurance is not paying for this replacement medication and is requesting something different. [place] - Denial for eplerenone (spironolactone replacement) received. Called nan to discuss denial and did not get far (yet). I called patient and told him he would need to request/designate me to filean appeal on his behalf. - Currently he is not taking spironolactone because of gynecomastia. I will add his cardiology teamto this message to keep in loop. Nan suggested Losartan or Enalapril instead, however patient w/ anaphylactic rxn to Lisinopril which I will explain. He was appreciative of my time. ?? Thank you all, -Katina Called and spoke with patient, informed him nurse from Ian Pollock's office was going to try and start an appeal. Asked that patient reach out to them to see if they have heard anything from [place]. Patient in agreement with plan. PIT WORKER documented in this encounter Plan of Treatment [...] on filedocumented in this encounter Care Teams Welding Machine Operator Gas Metal Arc Relationship Specialty Start Date End Date Ian Pollock MD [address] [place] [address] PCP - General 08/21/20 05/29/23 Katina Casiano DO [address] OF GEN INTERNAL MEDICINE [place], [place] Resident - PCP Internal Medicine 08/10/22 05/29/23 documented as of this encounter
--- OUTSIDE RECORDS SUMMARY | 2024-10-30 06:49 | XMS_ITS | Encounter Summary ---
Author Organization [facility] Address [address] [facility] [place] [address] Care Team Providers Care Chemistry Account Manager Name Role Phone Ian Pollock MD Primary Care Provider [phone] Katina Casiano DO Unavailable [phone] Reason for Visit * Reason Onset Date Comments MEDICATION REFILL 08/10/2022 Encounter Details Date Type Department Care Team (Late st Contact Info) Description 08/10/2022 Refill [facility] General Internal Medicine [address] [facility], [facility] [place] [address] Katina Casiano, [address] [place] [phone] MEDICATION REFILL Social History Tobacco Use Types [...] * Telephone Encounter - Dayna Pinto - 08/10/2022 4:28 PM CDT Refill Request Josafat Calvo EDELMIRA: 07/29/2022 NOV scheduled: Visit date not found LRF: 10/08/2020 Qty Disp: 1 # of refills: 0 Allergies: Allergies Allergen [...] on filedocumented in this encounter Care Teams Chemistry Account Manager Relationship Specialty Start Date End Date Ian Pollock MD [address] [facility] [place] [address] PCP - General 08/21/20 05/29/23 Katina Casiano DO [address] [facility] INTERNAL MEDICINE [place], [place] Resident - PCP Internal Medicine 08/10/22 05/29/23 documented as of this encounter
--- OUTSIDE RECORDS SUMMARY | 2024-10-30 06:50 | XMS_ITS | Encounter Summary ---
Author Organization [facility] Address [address] [place] [address] Care Team Providers Care Cable Layer Name Role Phone Ian Pollock MD Primary Care Provider [phone] Reason for Visit * Reason Comments Refill Request Encounter Details Date Type Department Care Team (Late st Contact Info) Description 06/03/2021 Refill [facility] [address] [facility] [address] [place] [address] Sayed Torres Blankenship MD [address] [place] [address] [place] [address] Refill Request Social History Tobacco Use Types Packs/Day Years Used Date Smoking Tobacco: Every Day Cigarettes 1 30 Smokeless Tobacco: Never Alcohol Use Standard Drinks/Week Comments Yes 6 (1 standard drink = 0.6 oz pure alcohol) beer madi. 25 oz 3 times a week Sex and Gender Information Value Date Recorded [...] on filedocumented in this encounter Care Teams Cable Layer Relationship Specialty Start Date End Date Ian Pollock MD [address] [place] [address] PCP - General 08/21/20 05/29/23 documented as of this encounter
--- OUTSIDE RECORDS SUMMARY | 2024-10-30 06:50 | XMS_ITS | Encounter Summary ---
Author Organization [facility] Address [address] [place] [address] Care Team Providers Care Theatrical Dresser Name Role Phone Ian Pollock MD Primary Care Provider [phone] Reason for Visit * Radiology Services (Routine) - Closed Specialty Diagnoses / Procedures Referred By Contac t Referred To Contact Vascular Lab Diagnoses Arthralgia of left lower leg Procedures VAS ARTERIAL ANKLE ARM INDEX Bridget Lomas MD [address] [place] [address] [facility] [address] [place] [address] Referral ID Status Reason Start Date Expiration Date Visits Re quested Visits Authorized [id number] Closed 12/01/2021 12/01/2022 1 1 Encounter Details Date Type Department Care Team (Latest Contact Info) Description 01/17/2022 2:55 PM CDT - 01/17/2022 3:34 PM CDT Hospital Encounter [facility] [address] [place] [address] Bridget Lomas MD Discharge Disposition: Home or Self Care Social [...] have Coronavirus / COVID-19? No / Unsure 01/17/2022 2:33 PM CDT documented as of this encounter Functional [...] 07/10/2021 lamoTRIgine (LAMICTAL) 100 MG tablet 09/14/2020 albuterol (PROVENTIL;VENTOLIN) (2.5 MG/3ML) 0.083% nebulizer solutionIndications:C [...] 07/12/2022 alfuzosin CR 24hr (UROXATRAL) 10 MG tablet TAKE 1 TABLET BY MOUTH ONCE DAILY 90 tablet 3 09/27/2021 01/18/2022 ASPIRIN LOW DOSE 81 MG chew tablet [...] BEFORE MEALS AND AT BEDTIME 04/24/2020 01/19/2022 tamsulosin (FLOMAX) 0.4 MG capsule Take 0.4 mg by mouth once daily At the same time every day after a meal. 01/18/2022 tiotropium (SPIRIVA RESPIMAT) 2.5 MCG/ACT inhaler Inhale [...] Comments VAS ARTERIAL ANKLE ARM INDEX Routine 01/17/2022 3:37 PM CDT Arthralgia of left lower leg documented in this encounter Results * VAS ARTERIAL ANKLE ARM INDEX (01/17/2022 3:37 PM CDT) Anatomical Region Laterality Modality Ankle / Foot, Upper Extremity In travascular Ultrasound 01/17/2022 3:25 AM CDT Narrative Procedure Note Rey Raygoza MD - 01/18/2022 Bridget Lomas MD [facility]ASCULAR [facility] documented in this encounter Visit Diagnoses Diagnosis Arthralgia of left lower leg Pain in joint, lower leg documented in this encounter Care Teams Theatrical Dresser Relationship Specialty Start Date End Date Ian Pollock MD [address] [place] [address] PCP - General 08/21/20 05/29/23 documented as of this encounter
--- OUTSIDE RECORDS SUMMARY | 2024-10-30 06:50 | XMS_ITS | Encounter Summary ---
Author Organization [facility] Address [address] [place] [address] Care Team Providers Care Inspection Manager Name Role Phone Ian Pollock MD Primary Care Provider [phone] Encounter Details Date Type Department Care Team (Latest Contact Info) Description 07/26/2021 9:45 AM CDT Clinical Support [facility] General Internal Medicine [address] [facility], [facility] [place] [phone] Encounter for immunization Social History Tobacco Use Types Packs/Day Years [...] as of this encounter Visit Diagnoses Diagnosis Encounter for immunization- Primary Need for other specified prophylactic vaccination against single bacterial disease documented in this encounter Care Teams Inspection Manager Relationship Specialty Start Date End Date Ian Pollock MD [address] [place] [address] PCP - General 08/21/20 05/29/23 documented as of this encounter
--- OUTSIDE RECORDS SUMMARY | 2024-10-30 06:50 | XMS_ITS | Encounter Summary ---
Author Organization [facility] Address [address] [place] [address] Care Team Providers Care Coder Name Role Phone Ian Pollock MD Primary Care Provider [phone] Reason for Visit * Reason Onset Date Comments MEDICATION REFILL 07/30/2021 Encounter Details Date Type Department Care Team (Late st Contact Info) Description 07/30/2021 Refill [facility] [address] [facility] [address] [place] [address] Dasha Sibley, UTILITY WORKER DRIVER REFILL Social History Tobacco Use Types Packs/Day [...] encounter Miscellaneous Notes * Telephone Encounter - Dasha Sibley RN - 07/30/2021 1:18 PM CDT Patient called stating that he did not get script for nicotine patch that Dr. Santos was going to send to pharmacy. I did confirm from office note that Dr. Santos requested this. Script sent and calledpatient to let him know. documented in this encounter Plan of Treatment [...] on filedocumented in this encounter Care Teams Coder Relationship Specialty Start Date End Date Ian Pollock MD [address] [place] [address] PCP - General 08/21/20 05/29/23 documented as of this encounter
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
--- OUTSIDE RECORDS SUMMARY | 2024-10-30 06:50 | XMS_ITS | Encounter Summary ---
Author Organization [facility] Address [address] [place] [address] Care Team Providers Care Drywall Professional Name Role Phone Ian Pollock MD Primary Care Provider Reason for Referral * Radiology Services (Routine) - Closed Specialty Diagnoses / Procedures Referred By Contac t Referred To Contact Vascular Lab Diagnoses Arthralgia of left lower leg Procedures VAS ARTERIAL ANKLE ARM INDEX Bridget Lomas MD [address] [place] [address] [facility] [address] [place] [address] Referral ID Status Reason Start Date Expiration Date Visits Re quested Visits Authorized [id number] Closed 12/01/2021 12/01/2022 1 1 NING TECHNOLOGIST Reason for Visit * Reason Comments Follow-up Encounter Details Date Type Department Care Team (Late st Contact Info) Description 12/01/2021 8:30 AM LEARNING TECHNOLOGIST Video Visit [facility] Cardiology [address] [facility] [address] [place] [address] Sayed Torres Blankenship MD [address] [place] [address] REBEKA DIAZ [phone] Arthralgia of left lower leg Social History Tobacco Use Types Packs/Day Years [...] - - Weight 108.4 kg (239 lb) 11/30/2021 8:26 AM LEARNING TECHNOLOGIST Height 175.3 cm (5' 9 ) 11/30/2021 8:26 AM LEARNING TECHNOLOGIST Body Mass Index 35.29 11/30/2021 8:26 AM LEARNING TECHNOLOGIST documented in this encounter Functional Status Functional [...] * Patient Instructions* Torres Mcgovern MD - 12/01/2021 9:19 AM LEARNING TECHNOLOGIST LYNNETTE at u to screen for blockages in leg Blood work ; D dimer to rule out clot in your leg check blood pressure at home RTC in 4 weeks in person NING TECHNOLOGIST documented in this encounter Progress Notes * Torres Mcgovern MD - 12/01/2021 8:41 AM CST Telemedicine Note Today's visit was conducted virtually due to COVID-19 countermeasures and bad weather . The patienthas given verbal consent to have today's visit conducted by this same means with treatment providedremotely. The patient verbally consents to the billing and collection practices of the provider's medical group. Patient location: Home This encounter was performed using: audio Reason for not using video for visit: technical problems in using available video technology Total time spent on visit on date of encounter is: 33 minutes with 22 minutes spent in medical discussion Assessment & Plan # left leg pain : patient with hx of PE and is at risk for PVD given hx of smoking HTN HLD and CAD Will obtain LYNNETTE for screening D dimer to rule out DVT See in person in clinic in 4-6 weeks Smoking cessation encouraged # ??Cardiomyopathy , EF recovered with medical therapy Etiology likely Mixed , ischemic and related to hypertension Hx of combined HF with mid range EF 46% , grade II diastolic dysfunction. EF recovered in recent echo -??now Compensated , NYHA class I RECS: - ASA 81 and atorvastatin 40 QHS - smoking cessation - ??coreg 12.5 BID - not on ACEi/ARB due to reported hx of anaphylaxis??to ACEi - return to clinic in??6 weeks ?? - cardiac rehab? # Moderate non obstructive Coronary Artery Disease :?? - ASA 81 and atorvastatin 40 QHS - LDL at goal - smoking cessation # HTN on coreg and HCTZ Check BP at home and keep a log Subjective Chief Complaint Patient presents with ??? Follow-up Rylee is a 61 year old male who has completed a telemedicine encounter regarding: He has hx of tobacco use, HTN, COPD, combined heart failure with mid range EF 46% with recovered EF, grade II DD and MR Here for follow up ?? Since last visit patient reports improvement in his breathing , denies chest pain or palpitations C/w his medications Continues to smoke?? but trying to quit C/o burning sensation in his left calf worse with walking . No clear swelling per discussion . Painis intermittent and has been going on for few weeks A comprehensive 10 system ROS was reviewed. Pertinent positives and negatives are included in HPI or PMH. The remainder of the 10 system ROS was negative. Objective ?? TTE 09/2019?? Left ventricular systolic function [...] arterial systolic pressure is 29 mmHg. ? [facility] 06/17/2020:?? - Moderate 40-50% ostial stenosis of LCx. - Non obstructive coronary arteries. - Diffuse mild luminal disease. RECOMMENDATIONS AFTER DIAGNOSTIC CATHETERIZATION:? Medical management of nonobstructive CAD. Aggressive modification of atherosclerotic risk factors. Continue titration of medications for cardiomyopathy ?? [facility] 06/2020: The left ventricle is moderately increased [...] CALVO ( ) as of 12/01/2021 08:46 Ref. Range 07/25/2019 09:35 01/04/2021 13:18 Appearance Latest Ref Range: CLEAR CLEAR Cholesterol Latest Ref Range: <200 mg/dL 165 117 Triglycerides Latest Ref Range: <150 mg/dL 49 73 HDL Latest Ref Range: > OR = 40 mg/dL 59 56 LDL Calculated Latest Units: mg/dL (calc) 92 46 Current Outpatient Medications on File Prior to Visit Medication Sig Dispense Refill ??? albuterol (PROVENTIL;VENTOLIN) [...] BY MOUTH ONCE DAILY 90 tablet 3 ??? ASPIRIN LOW DOSE [...] lamoTRIgine (LAMICTAL) 100 MG tablet ??? latanoprost (XALATAN) 0.005 % ophthalmic solution (Patient not taking: Reported on 11/09/2021) ??? montelukast (SINGULAIR) 10 MG tablet Take 10 mg by mouth once daily (Patient not taking: Reported on 09/16/2021) ??? nicotine (NICODERM CQ) 14 MG/24HR patch APPLY 1 (ONE) PATCH TO SKIN ONCE DAILY (Patient not taking: Reported on 11/09/2021) 28 patch 1 ??? nicotine (NICODERM CQ) 21 MG/24HR patch Apply 1 (one) patch to skin once daily (Patient not taking: Reported on 09/16/2021) 30 patch 0 ??? nicotine (NICODERM CQ) 7 MG/24HR patch Apply 1 (one) patch to skin once daily (Patient not taking: Reported on 11/09/2021) 30 patch 0 ??? omeprazole (PRILOSEC) 20 MG capsule ??? pantoprazole EC (PROTONIX) 40 MG tablet Take 1 tablet by mouth once daily (Patient not taking: Reported on 11/09/2021) ??? Pseudoephedrine-Guaifenesin (MUCINEX D PO) ??? sildenafil (VIAGRA) 100 MG tablet Take 1 tablet by mouth as directed 1 hour prior to intercourse Reasons: Erectile Dysfunction 30 tablet 3 ??? spironolactone (ALDACTONE) 50 MG tablet TAKE 1 TABLET BY MOUTH EVERY DAY 30 tablet 2 ??? sucralfate (CARAFATE) 1 GM tablet TK 1 T PO QID ON AN EMPTY STOMACH 30 MIN TO 1 H BEFORE MEALS AND AT BEDTIME ??? tamsulosin (FLOMAX) 0.4 MG capsule Take 0.4 mg by mouth once daily At the same time every day after a meal. ??? tiotropium (SPIRIVA RESPIMAT) 2.5 MCG/ACT inhaler Inhale 2 (two) puffs by mouth once daily 12 g4 ??? ziprasidone (GEODON) 20 MG capsule TK 1 C PO HS ??? ziprasidone (GEODON) 40 MG capsule No current facility-administered medications on file prior to visit. Torres Blankenship MD Cardiology Attending Attestation: Patient seen and examined with Fellow. Please see note for further details. I confirm history, exam, assessment and plan. In addition I note: Interval history: Patient doing well, some vague leg pain. Continue GDMT for CM and HTN Check d-dimer, LYNNETTE Further recs pending testing. Bridget Lomas DO [facility] Cardiology 12/01/2021 9:53 AM NING TECHNOLOGIST documented in this encounter Plan of Treatment [...] Visit Diagnoses Diagnosis Arthralgia of left lower leg- Primary Pain in joint, lower leg Arthralgia of left lower leg Pain in joint, lower leg documented in this encounter Care Teams Drywall Professional Relationship Specialty Start Date End Date Ian Pollock MD [address] OF [facility] [place] [address] PCP - General 08/21/20 05/29/23 documented as of this encounter
--- OUTSIDE RECORDS SUMMARY | 2024-10-30 06:50 | XMS_ITS | Encounter Summary ---
Author Organization [facility] Address [address] [facility] [place] [address] Care Team Providers Care Jersey Knitter Name Role Phone Ian Pollock MD Primary Care Provider Reason for Visit * Reason Comments Refill Request Encounter Details Date Type Department Care Team (Late st Contact Info) Description 10/19/2020 Refill [facility] Pul[facility], Critical Care and Sleep Medicine [address] [place] [address] Agnieszka Haas MD [address] [place] [address] Refill Request Social History Tobacco Use Types [...] have Coronavirus / COVID-19? Unable to assess 01/29/2021 8:52 AM CDT documented as of this encounter [...] Yes 11/05/2015 documented as of this encounter Plan of [...] on filedocumented in this encounter Care Teams Jersey Knitter Relationship Specialty Start Date End Date Ian Pollock MD [address] [place] [address] PCP - General 08/21/20 05/29/23 documented as of this encounter
--- OUTSIDE RECORDS SUMMARY | 2024-10-30 06:50 | XMS_ITS | Encounter Summary ---
Author Organization [facility] Address [address] [facility] [place] [address] Care Team Providers Care Viscera Washer Name Role Phone Ian Pollock MD Primary Care Provider Reason for Visit * Reason Comments Refill Request Encounter Details Date Type Department Care Team (Late st Contact Info) Description 08/26/2021 Refill [facility] Pul[facility], Critical Care and Sleep Medicine [address] [place] [address] Agnieszka Haas MD [address] [place] [address] Refill Request Social History Tobacco Use Types [...] on filedocumented in this encounter Care Teams Viscera Washer Relationship Specialty Start Date End Date Ian Pollock MD [address] [place] [address] PCP - General 08/21/20 05/29/23 documented as of this encounter
--- OUTSIDE RECORDS SUMMARY | 2024-10-30 06:50 | XMS_ITS | Encounter Summary ---
Author Organization [facility] Address [address] [place] [address] Care Team Providers Care Fha Underwriter Name Role Phone Ian Pollock MD Primary Care Provider [phone] Reason for Visit * Reason Comments Refill Request Encounter Details Date Type Department Care Team (Late st Contact Info) Description 06/17/2021 Refill [facility] Cardiology [address] [facility] [address] [place] [address] Sayed Torres Blankenship MD [address] [place] [address] [place] [address] Refill Request Social History Tobacco Use [...] on filedocumented in this encounter Care Teams Fha Underwriter Relationship Specialty Start Date End Date Ian Pollock MD [address] [place] [address] PCP - General 08/21/20 05/29/23 documented as of this encounter
--- OUTSIDE RECORDS SUMMARY | 2024-10-30 06:50 | XMS_ITS | Encounter Summary ---
Author Organization [facility] Address [address] [place] [address] Care Team Providers Care Warp Tester Name Role Phone Ian Pollock MD Primary Care Provider Reason for Visit * Reason Onset Date Comments Breathing Problem 09/07/2021 Encounter Details Date Type Department Care Team ([facility] Contact Info) Description 09/07/2021 Telephone [facility], Critical Care [facility] Medicine [address] [facility], [place] [id number] Shari Kauffman RN Breathing Problem Social History Tobacco Use Types Packs/Day Years [...] encounter Miscellaneous Notes * Telephone Encounter - Shari Kauffman RN - 09/08/2021 11:26 AM [employer]LECT[employer]ICIAN [employer]ACH[employer] Patient called back very upset requests for RX for inhalers were initiall denied. Dr Haas did call patient back for followup. States he has been dependent on medicab for appts and they are not dependent. Requesting to voice complaint. Emailed Patient Experience rep with patient complaint. Patient called. No answer. Message left. Patient Experience phone number left for followup [phone] TRICIAN MACHINE [employer] * Telephone Encounter - Shari Kauffman RN - 09/07/2021 3:01 PM E[employer]IC[employer] Patient called back, notified he needs to go to nearest ER or [facility] today if short of breath per Dr Haas. Not comfortable filling inhalers or prescribing prednisone since patient was last seenin clinic on 04/21/20 Last OV was Oct 2020, telephone appt. Multiple no shows and cancelled appts. Attempted to move up appt to 09/09/21. Patient refused. Next OV scheduled 09/16 TR[employer]IAN MACH[employer] documented in this encounter Plan of Treatment [...] on filedocumented in this encounter Care Teams Warp Tester Relationship Specialty Start Date End Date Ian Pollock MD [address] [place] [address] PCP - General 08/21/20 05/29/23 documented as of this encounter
--- OUTSIDE RECORDS SUMMARY | 2024-10-30 06:50 | XMS_ITS | Encounter Summary ---
Author Organization [facility] Address [address] [place] [address] Care Team Providers Care Acoustics Teacher Name Role Phone Ian Pollock MD Primary Care Provider [phone] Reason for Referral * Procedure (Routine) - Closed Specialty Diagnoses / Procedures Referred By Florentino lowe Referred To Contact Sleep Center Diagnoses SHAYNE (obstructive sleep apnea) Pulmonary emphysema, unspecified emphysema type (HCC) History of CHF (congestive heart failure) Periodic limb movement disorder (PLMD) Procedures PROC POLYSOMNOGRAPHY,DIAGNOSTIC FULL NIGHT Alvarez Duarte MD [address] [address] [facility] [address] [place] [address] Referral ID Status Reason Start Date Expiration Date Visits Re quested Visits Authorized [id number] Closed 12/24/2021 12/24/2022 1 1 ITIONAL SERVICES COOK Reason for Visit * Reason Comments Sleep Problem Neck size 17 inches. Snoring Breathing Problem * Evaluate & Treat (Routine) - Closed Specialty Diagnoses / Procedures Referred By Florentino t Referred To Contact Sleep Center Diagnoses SHAYNE (obstructive sleep apnea) Tariq Recio MD [address] OF PULMONARY/[place] [address] [facility] [address] [place] [address] Referral ID Status Reason Start Date Expiration Date V isits Requested Visits Authorized [id number] Closed Specialty Services Required 09/16/2021 09/16/2022 1 1 Encounter Details Date Type Department Care Team (Late st Contact Info) Description 12/24/2021 9:40 AM NUTRITIONAL SERVICES COOK Office Visit [facility] [address] [place], [place] [id number] Tariq Recio MD [address] DIV OF PULMONARY/CRITICA L [place], [place] [id number] Alvarez Duarte MD [address] [id number] SHAYNE (obstructive sleep apnea) (Primary Dx); Pulmonary emphysema, unspecified emphysema type (HCC); History of CHF (congestive heart failure); Periodic limb movement disorder (PLMD); Restless legs syndrome (RLS); REM sleep behavior disorder; Sleep choking syndrome; UARS (upper airway resistance syndrome); Hypertension, secondary Social History Tobacco Use Types Packs/Day Years Used Date Smoking Tobacco: Every Day Cigarettes 1 30 Smokeless Tobacco: Never Tobacco Cessation:Ready to Q uit: No; Counseling Given: No Alcohol Use Standard Drinks/Week Comments Yes 6 [...] Sign Reading Time Taken Comments Blood Pressure 136/95 12/24/2021 9:18 AM NUTRITIONAL SERVICES COOK Pulse 87 12/24/2021 9:18 AM NUTRITIONAL SERVICES COOK Temperature - - Respiratory Rate - - Oxygen Saturation - - Inhaled Oxygen Concentration - - Weight 110.7 kg (244 lb) 12/24/2021 9:18 AM NUTRITIONAL SERVICES COOK Height 175.3 cm (5' 9 ) 12/24/2021 9:18 AM NUTRITIONAL SERVICES COOK Body Mass Index 36.03 12/24/2021 9:18 AM NUTRITIONAL SERVICES COOK documented in this encounter Functional Status Functional [...] this encounter Patient Instructions * Patient Instructions* YovannyArmida - 12/24/2021 10:10 AM NUTRITIONAL SERVICES COOK Images from the original note were not included. [facility], First Floor, [id number] [place] [address] Date of Sleep Study: 01/20/2022 Arrive by 08:30 pm you will leave by 7:00 am the following morning. PRE-TEST INSTRUCTIONS: 2-3 days prior to your test, sleep 8 hours nightly with regular sleep and wake times. Do not drink caffeine and do not nap after 11 am the day of your test. Follow any special instructions given by your doctor regarding medication changes and changes in smoking or alcohol consumption. Shower the day of your test, but DO NOT USE lotion on your skin or oily conditioners on your hair (these interfere with applying the electrodes). WHAT TO BRING the evening of the test: ? comfortable pajamas, shorts, sweats, etc. (two-piece clothing only please) ? toothbrush & toothpaste, comb, facial cleanser, wash cloth & towel (if removing electrodeglue residue while you're here) ? ALL MEDICATIONS ? Insurance card(s) and picture ID, if this is your first visit at the Sleep Center ? Day time nap patients need to bring lunch in a lunch box or bag marked with your name. We can store this in our office refrigerator for you. To help maintain cleanliness, we ask that you bring sslgx-sp-dhi items such as a sandwich, apple, etc. Optional items to bring: ? your own pillow if you have a preference, ours are somewhat firm and flat ? a book to read or something to help pass the time while waiting ? a container with a lid if you want something to drink while you wait or when you wake up There is a TV, chair and a bathroom in your room. No food is provided and we ask that you do not have any open food in your room. For any changes to your Sleep test ON THE EVENING OF THE TEST; call to speak to or leave a message for the in-clinic evening Investment Executive. If you are unable to come, kindly call us in advance at [facility]. Obtaining authorization for a sleep test is often very difficult and time consuming. Therefore, if you have any insurance changes, please notify our office staff immediately to prevent the cancelation of your test. We need 1-2 weeks or more to get an insurance approval. ITIONAL SERVICES COOK documented in this encounter Progress Notes * Alvarez Duarte MD - 12/24/2021 9:45 AM CST Images from the original note were not included. [facility], [address] [facility] [place] [address] Telephone : [phone] Medical Records Impressions: The patient's problems are complicated and interrelated with significant co- morbidities. We had discussion as regards diagnostic and therapeutic options related to multiple sleep problems and potentially associated comorbidities. We had discussion as regards pathology associated with untreated or insufficiently treated sleep apnea, including hypertension, cardiac arrhythmia, stroke, [place], sudden , autonomic dysfunction, problems with memory, balance, and decision making, sleepiness, decreased hand-eye coordination and visual response time and risk of accidental injury or , nocturia, insulin resistance, weight gain, fasting hyperglycemia, etc. Obstructive sleep apnea and hypertension frequently coexist (an estimated 50% of patients with HTN have concomitant SHAYNE), and recent evidence supports the role of SHAYNE as the most prevalent secondary contributor to elevated blood pressure (BP) in patients with resistant HTN (c.f. Hypertension. 2014;63: 203-209). CPAP should be used in combination with antihypertensive medications in hypertensive patients with SHAYNE. CPAP has the additional benefits of restoring nocturnal dipping and improving arterial stiffness, thus potentially influencing cardiovascular morbidity in these high-risk patients (Luz Marina MG1, Tayo DL, Use of continuous positive airway pressure for sleep apnea in the treatment of hypertension. Curr Opin Nephrol Hypertens. 2014). He reports acting out dreams. REM sleep behavior disorder is characterized by the loss of muscle paralysis during the dream state of sleep. Diagnosis requires the EMG finding of either sustained or intermittent elevation of submental EMG tone or excessivephasic submental or limb EMG twitching during REM sleep and disruption of sleep. Acting out of dreams in RSBD can be dangerous and result in injury or to the patient or bed partner. We recommend at least separate beds if not bedrooms, until the nature of this complaint is evaluated and treated. REM sleep behavior disorder can be mimicked by obstructive sleep apnea with arousals during REM sleep. Sleep related choking and hypersomnia can be signs of sleep related seizures. Patients with restless leg complaints frequently have low ferritin levels, and it is recommended that these levels be checked to ensure serum content of ferritin > 70 ng/ml and thereby, adequate brain content of iron. Medications and several substances may induce or worsen restless legs syndrome. These include caffeine, alcohol, SSRIs, SNRIs, tricyclic antidepressants, lithium, and dopamine H8gdhmrobi antagonists such as neuroleptics and antipsychotics. In 80% of patients with restless limbs syndrome, sleep is further compromised by presence of periodic limb movement disorder. By AASM guidelines, in lab sleep study with EMG,EEG, and ECG is indicated. The patient has history of CHF and emphysema, reported history of dangerous parasomnia, and high risk for PLMD and therefore does not meet criteria for home apnea testing. The patient warrants in-laboratory polysomnography to allow EEG, EMG, and ECG, which are not available on home apnea testing. Recommendations: 1. Diagnostic night of polysomnography. 2. Multiple Sleep Latency Test after a night of polysomnography to assess the etiology and significance of uncontrolled daytime sleepiness - this will be deferred until after treatment of any primarysleep disorder identified on PSG. 3. Review of requested data and pending data as ordered. 4. Further recommendations will follow polysomnography and re-evaluation. Subjective: Chief Complaint Patient presents with ??? Sleep Problem Neck size 17 inches. ??? Snoring ??? Breathing Problem Referral # Creation Date Referral Status Status Update ??[id number] 09/16/2021 Closed 09/27/2021: Status History Status Reason Referral Type Referral Reasons Referral Class Appointment Made No Auth Required Evaluate & Treat Specialty Services Required Internal To Specialty To Provider To Location/Place of Service To Department Sleep Center none none AFF [facility] To Vendor Referred By By Location/Place of Service By Department none Tariq Recio MD [facility] [address] [facility] [address] [facility] [address] Priority Start Date Expiration Date Referral Entered By Routine 09/16/2021 09/16/2022 Agnieszka Haas MD Visits Requested Visits Authorized Visits Completed Visits Scheduled 1 1 1 0 Scheduling Department/Location Provider Visit Type Status 12/24/21 ??9:40 AM [facility] Alvarez Duarte MD u New Sleep Study Arrived Procedure Information Service Details Procedure Modifiers Provider Requested Approved [id number] - AMB REFERRAL TO SLEEP SPECIALIST None 1 1 Diagnosis Information Diagnosis G47.33 (ICD-10-CM) - SHAYNE (obstructive sleep apnea) Reason for consultation: Pulmonary referral. Coughing when asleep. Dr. 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 We reviewed with the patient extensive data that included laboratory results,diagnostic results, notes of other practitioners. RLS about 18 months. Severe. 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 Today's visit is a follow up for dyspnea. ?? Reports that he has shortness of breath, cough and wheezing constantly throughout the day without significant variability. ?? He continues to smoke. Reports smoking about half a pack a day. ... ASSESSMENT : ?? # Cough- Allergic rhinitis/post nasal drip/ GERD/Smoking related/ heart failure related. # Asthma # Paraseptal and centrilobular emphysema. # Severe air trapping on latest PFTs. # Combined systolic and diastolic dysfunction of CHF. # Moderate MR. # Obesity- by body habitus. # H/o PE. # Active tobacco use. ?? PLAN: ?? - Continue symbicort 160/4.5 2 puffs twice a day and albuterol as needed. Reviewed the regimen. - We will start him on Spiriva 2.5 act 2 puffs once daily in view of e/o emphysema. - Tobacco cessation counseling given. - Reports that he has nicotine patches at home. - We will obtain CBC with differential and Allergen profile to phenotype his asthma . - Referral to sleep center for evaluation of sleep apnea. - Up to date on immunization. Received annual influenza vaccination for this season. ?? Upper airway resistance: Snoring Yes Observed cessation of breathing: Don't know Tonsillectomy/Adenoidectomy No Cleft palate repair No Mouth or facial surgery: No Nasal trauma or surgery No COPD/Asthma Yes CHF Yes Atrial fibrillation Don't know Pulmonary hypertension Don't know Nocturnal reflux Yes Nocturnal wheezing No Nocturnal cough Yes Paroxysmal nocturnal dyspnea Yes Dyspnea with exertion Yes Nocturia No Sleepiness: The patient estimates Pyatt Sleepiness Scale at 6/24 and fatigue severity scale at 35/63. Symptoms of cataplexy No Sleep paralysis No Hypnagogic or hypnopompic hallucinations No Parasomniae: Sleep Talking Yes Sleep walking No Sleep Eating No Awaken to eat Yes Mass at age 19 was 190 pounds. Neurological Restless limbs syndrome Yes* History of head injury and concussion Yes (*If restless limbs syndrome is present, the patient has an irresistible urge to move the limbs that is worse at rest, worse when sleepy, causeses delay in sleep, and resolves immediately with movement.) For further details, review the [facility] Sleep History/Patient Questionnaire, which was reviewed in fullwith the patient. Past Medical History: Diagnosis Date ??? Acute [...] injury [address] [facility] ??? Heart failure with reduced [...] Brother 53 ??? Cancer - Other Brother Current Outpatient Medications Medication Sig Dispense Refill ??? albuterol (PROVENTIL;VENTOLIN) (2.5 MG/3ML) 0.083% nebulizer solution Inhale 2.5 (two and one-half) mg by mouth every 4 hours as needed for Shortness of Breath 75 mL 0 ??? albuterol HFA (PROVENTIL; VENTOLIN; PROAIR) 108 (90 Base) MCG/ACT inhaler Inhale 2 (two) puffs by mouth every 6 hours as needed (Patient not taking: Reported on 12/24/2021) 18 g 3 ??? alfuzosin CR 24hr [...] TO SKIN ONCE DAILY, REMOVE OLD PATCH 28patch 1 ??? nicotine (NICODERM CQ) 21 MG/24HR [...] MG capsule TK 1 C PO HS (Patient not taking: Reported on 12/24/2021) ??? ziprasidone (GEODON) 40 MG capsule No current facility-administered medications for this visit. Allergies Allergen Reactions ??? 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 Please see the above. Please see the questionnaires. The patient further denies any significant or recent problems withsevere tinnitus, difficulty swallowing, abnormal taste or smell, unusual weight loss, change in voice, rash, chills, lymphadenopathy, bone joint or muscle redness and swelling, eye sores, mouth sores, changes in bowel habits, blood, melena, hematuria. Objective: BP 136/95 (BP SITE: LEFT ARM, BP POSITION: SITTING, BP CUFF SIZE: 12) Pulse 87 Ht 5' 9 (1.753 m) Wt 244 lb (110.7 kg) BMI 36.03 kg/m2 General: normal, appears reported age Integument: Visible integument is clear of significant lesions. Nails and hair are unremarkable. Eyes: Sclera and conjunctiva are clear. Fundal vessels with mod increase in v:A; no bleeding on limited, non-dilated examination. Ears: normal pinnae Nose: Slightly deviated from midline. Visible nasal mucosa is normal. Oropharynx: Oropharyngeal mucosa is clear of significant lesions. The tongue extends in the mid-line. The posterior oropharynx is class 3. Neck: The neck is supple. There are no significant cervical or supraclavicular nodes. Thyroid: The thyroid is normal. Lung: Lungs are with scatter ronchi, clear with cough. No wheeze with forced expir. Cardiovascular: Heart sounds are normal with a grade one systolic flow murmur heard best at the base. There are no appreciable carotid bruits. There is trace pretibial edema. Posterior tibial pulses noted 2+. Abdomen: The abdomen is soft, and without tenderness, masses, liver or spleen to deep or light palpation. Extremities: Extremities symmetric, normal muscle mass. Neuro: The patient is alert, oriented, and capable of rational thought. Extra- ocular movements are intact and without lid lag. Facial musculature seems symmetric. Facial sensation and hearing not formally tested. There is no tremor. Pupils equal, round, reactive to light with accommodation. Visual torres grossly intact to confrontation. Tongue extends in midline. Proximal muscle strength good. Deep tendon reflex with normal relaxation phase. Lab Review Lab results smartLinks are not currently available Lab results smartLinks are not currently available Lab results smartLinks are not currently available Lab results smartLinks are not currently available Lab results smartLinks are not currently available Lab results smartLinks are not currently available Links to laboratory results have broken with change in EHR platform. All interim results available were reviewed with the patient. Impressions and recommendations can be found at the beginning of this note. Total of 60 min historical review, exam, analysis, discussion, recommendations. See scanned material and instructions. ITIONAL SERVICES COOK documented in this encounter Plan of Treatment Scheduled Orders Name Type Priority Associated Diagnoses Orde r Schedule PROC POLYSOMNOGRAPHY,DIAG NOSTIC FULL NIGHT Procedures Routine SHAYNE (obstructive sleep apnea) Pulmonary emphysema, unspecified emphysema type (HCC) History of CHF (congestive heart failure) Periodic limb movement disorder (PLMD) Ordered: 12/24/2021 documented as of this encounter Goals Goal Patient Goal Type Associated Problems Recent Progress Patient-Stated? Author Mobility General No Stephanie Gallegos RN Note: Expected end date: *10/30/2019 The goal is to maintain or improve your mobility at the optimum level for you. Interventions: documented as of this encounter Visit Diagnoses Diagnosis SHAYNE (obstructive sleep apnea)- Primary Obstructive sleep apnea (adult) (pediatric) Pulmonary emphysema, unspecified emphysema type (HCC) History of CHF (congestive heart failure) Personal history of other diseases of circulatory system Periodic limb movement disorder (PLMD) Periodic limb movement disorder Restless legs syndrome (RLS) REM sleep behavior disorder Sleep choking syndrome Persistent disorder of initiating or maintaining sleep UARS (upper airway resistance syndrome) Other organic sleep disorders Hypertension, secondary Other secondary hypertension, unspecified documented in this encounter Care Teams Acoustics Teacher Relationship Specialty Start Date End Date Ian Pollock MD [address] OF [facility] [place] [address] PCP - General 08/21/20 05/29/23 documented as of this encounter
--- OUTSIDE RECORDS SUMMARY | 2024-10-30 06:50 | XMS_ITS | Encounter Summary ---
Author Organization [facility] Address [address] [place] [address] Care Team Providers Care Bus Driver/Monitor Name Role Phone Ian Pollock MD Primary Care Provider [phone] Reason for Visit * Reason Comments Refill Request Encounter Details Date Type Department Care Team (Late st Contact Info) Description 08/24/2021 Refill [facility] [address] [facility] [address] [place] [address] Sayed Torres Blankenship MD [address] [place] [address] [place] [id number] Refill Request Social History Tobacco Use [...] on filedocumented in this encounter Care Teams Bus Driver/Monitor Relationship Specialty Start Date End Date Ian Pollock MD [address] [place] [address] PCP - General 08/21/20 05/29/23 documented as of this encounter
--- OUTSIDE RECORDS SUMMARY | 2024-10-30 06:50 | XMS_ITS | Encounter Summary ---
Author Organization [facility] Address [address] [facility] [place] [address] Care Team Providers Care Warehouse Foreman Name Role Phone Ian Pollock MD Primary Care Provider Katina Casiano DO Unavailable [phone] Xavi ACOSTA MD, Jameel Gaviria Primary Care Provider + Katina Casiano DO Unavailable [phone] Tracey Ang PA Unavailable [phone] Belkis Angel FINANCIAL SERVICES AGENT-CABLE PLACER Primary Care Provider + Natalie Baum Primary Care Provider [phone] Encounter Details Date Type Department Care Team (Late st Contact Info) Description 04/22/2021 Telephone [facility] [address] [place] [address] Kezia Hollis MD [address] OF PULMONARY/[place] [address] Social History Tobacco Use Types [...] encounter Miscellaneous Notes * Telephone Encounter - MadiSpenser - 04/22/2021 9:44 AM CDT Patient called because he is scheduled for 04/19/[address] Hollis. He said that he had attempted to get this changed to 2020 and when he went to his appointment, he was turned away because his appointment schedule error was not correctly updated. Can we get him in sooner with another provider or will he have to stay with Dr. Hollis? Call Back #: [phone] documented in this encounter Plan of Treatment [...] on filedocumented in this encounter Care Teams Warehouse Foreman Relationship Specialty Start Date End Date Ian Pollock MD [address] OF [facility] [place] [address] PCP - General 08/21/20 05/29/23 Jameel Hurley III, MD [address] OF [facility] [place] [address] PCP - General Internal Medicine 06/05/23 08/28/23 Belkis Angel APRN-CABLE PLACER [address] [place] [address] PCP - General Nurse Practitioner 08/29/23 05/05/24 Natalie Baum [address] [place] [address] PCP - General 05/06/24 Katina Casiano DO [address] [facility] [address] DIV OF GEN [facility]NAL [facility]IC[facility] [place] Resident - PCP Internal Medicine 08/10/22 05/29/23 Kaitna Casiano DO [address] [facility] [address] DIV OF GEN [facility]NAL [facility] [place], [place] Hospitalist 06/05/23 Tracey Ang PA [address] [facility] [address] [place] [address] Physician Pack Train Driver 08/15/23 documented as of this encounter
--- OUTSIDE RECORDS SUMMARY | 2024-10-30 06:50 | XMS_ITS | Encounter Summary ---
Author Organization [facility] Address [address] [facility] [place] [address] Care Team Providers Care Switchbox Assembler Name Role Phone Ian Pollock MD Primary Care Provider Reason for Visit * Reason Onset Date Comments Imaging 02/15/2021 Encounter Details Date Type Department Care Team ([facility] st Contact Info) Description 02/15/2021 Telephone [facility] Pulmonary, Critical Care and Sleep Medicine [address] [place] [id number] Agnieszka Haas MD [address] [place] [address] Imaging Social History Tobacco Use Types Packs/Day Years [...] encounter Miscellaneous Notes * Telephone Encounter - Krystina Bernard - 02/15/2021 3:41 PM CDT , Patient called wanting the results of his low dose CT Scan he states he don't understand the results in my chart. documented in this encounter Plan of Treatment [...] on filedocumented in this encounter Care Teams Switchbox Assembler Relationship Specialty Start Date End Date Ian Pollock MD [address] [place] [address] PCP - General 08/21/20 05/29/23 documented as of this encounter
--- OUTSIDE RECORDS SUMMARY | 2024-10-30 06:50 | XMS_ITS | Encounter Summary ---
Author Organization [facility] Address [address] [facility] [place] [address] Care Team Providers Care Joinery Patternmaker Name Role Phone Ian Pollock MD Primary Care Provider [phone] Reason for Referral * Radiology Services (Routine) - Closed Specialty Diagnoses / Procedures Referred By Contac t Referred To Contact CT Scan Diagnoses Tobacco use disorder Procedures CT LUNG SCREEN LOW DOSE Agnieszka Haas MD [address] [place] [address] [address] Referral ID Status Reason Start Date Expiration Date Visits Re quested Visits Authorized [id number] Closed 01/19/2021 07/18/2021 1 1 Reason for Visit * Radiology Services (Routine) - Closed Specialty Diagnoses / Procedures Referred By Contac t Referred To Contact CT Scan Diagnoses Tobacco use disorder Procedures CT LUNG SCREEN LOW DOSE Agnieszka Haas MD [address] [place] [address] [facility] [address] [place] [id number] Referral ID Status Reason Start Date Expiration Date Visits Re quested Visits Authorized [id number] Closed 01/19/2021 07/18/2021 1 1 Encounter Details Date Type Department Care Team (Latest Contact Info) Description 02/04/2021 6:58 AM CDT - 02/04/2021 11:59 PM CDT Hospital Encounter [facility] CAT SCAN [address] [place] [address] Agnieszka Haas MD [address] [place] [address] Discharge Disposition: Home or Self Care Social [...] Sig Dispensed Refills Start Date End Date lamoTRIgine (LAMICTAL) 100 MG tablet 09/14/2020 albuterol HFA (PROVENTIL;VENTOLIN;P ROAIR) 108 (90 Base) MCG/ACT inhaler Inhale 2 puffs by mouth every 6 hours as needed 18 g 3 09/16/2020 09/07/2021 alfuzosin CR 24hr (UROXATRAL) 10 MG tablet Take 1 tablet by mouth once daily 90 tablet 3 09/29/2020 09/27/2021 amLODIPine (NORVASC) 10 MG tablet Take 1 tablet by mouth once daily 90 tablet 01/28/2020 02/08/2021 aspirin (ASPIRIN) 81 MG chew tablet Take 1 tablet by mouth once daily 100 tablet 4 05/13/2020 06/03/2021 atorvastatin (LIPITOR) 40 MG tablet Take 1 tablet by mouth once daily 90 tablet 4 05/13/2020 08/24/2021 budesonide-formoterol (SYMBICORT) 160-4.5 MCG/ACT inhalerIndications:Co ugh Inhale 2 puffs by mouth 2 times daily 3 Inhaler 3 09/10/2020 09/07/2021 carvedilol (COREG) 25 MG tablet TAKE 1 TABLET BY MOUTH TWICE A DAY 60 tablet 2 01/11/2021 04/05/2021 fluticasone propionate (FLONASE) 50 MCG/ACT nasal spray SHAKE LIQUID AND USE 2 SPRAYS IN EACH NOSTRIL EVERY DAY 16 g 11 09/30/2020 12/14/2022 furosemide (LASIX) 20 MG tablet TAKE 1 TABLET BY MOUTH EVERY DAY 90 tablet 2 01/22/2021 07/28/2021 gabapentin (NEURONTIN) 300 MG capsuleIndications:Ch ronic midline low back pain without sciatica Take 1 capsule by mouth 2 times daily Start with 1 tab let at bedtime for 1 week then take twice a day 60 capsule 1 10/08/2020 02/08/2021 latanoprost (XALATAN) 0.005 % ophthalmic solution 01/25/2019 01/19/2022 montelukast (SINGULAIR) 10 MG tablet Take 1 tablet by mouth once daily 90 tablet 4 04/21/2020 02/08/2021 omeprazole (PRILOSEC) 20 MG capsule Take 1 capsule by mouth once daily 90 capsule 4 04/21/2020 02/08/2021 pantoprazole EC (PROTONIX) 40 MG tablet Take 1 tablet by mouth once daily 01/08/2021 01/19/2022 Pseudoephedrine-Guaif enesin (MUCINEX D PO) 2021 sildenafil (VIAGRA) 100 MG tabletIndications:Ere ctile Dysfunction Take 1 tablet by mouth as directed 1 hour prior to intercourse Reasons: Erectile Dysfunction 30 tablet 3 09/29/2020 01/19/2022 spironolactone (ALDACTONE) 50 MG tablet TAKE 1 TABLET BY MOUTH EVERY DAY 30 tablet 2 01/11/2021 04/05/2021 sucralfate (CARAFATE) 1 GM tablet TK 1 T PO QID ON AN EMPTY STOMACH 30 MIN TO 1 H BEFORE MEALS AND AT BEDTIME 04/24/2020 01/19/2022 tamsulosin (FLOMAX) 0.4 MG capsule Take 0.4 mg by mouth once daily At the same time every day after a meal. 01/18/2022 triamcinolone acetonide (KENALOG) 0.1 % cream Apply to affected area 2 times daily Apply to arms BID prn eczema 60 g 1 10/08/2020 02/08/2021 Umeclidinium [place] (INCRUSE ELLIPTA IN) 021 ziprasidone (GEODON) 20 MG capsule TK 1 C PO HS 10/09/2019 01/19/2022 ziprasidone (GEODON) 40 MG capsule 08/25/2020 01/29/2024 documented as of this encounter Progress Notes * Ian Pollock MD - 02/04/2021 3:54 PM CDT Ordered in Pulmonary office. documented in this encounter Plan of Treatment [...] Comments CT LUNG SCREEN LOW DOSE Routine 02/04/2021 7:12 AM CDT Tobacco use disorder documented in this encounter Results * CT LUNG SCREEN LOW DOSE (02/04/2021 7:12 AM CDT) Anatomical Region Laterality Modality Chest Computed Tomogra phy 02/04/2021 7:18 AM CDT Impressions 02/04/2021 1:52 PM CDT Impression: 1.No suspicious pulmonary nodule. Lung-RADS: 1 LungRADS Categories: 1 - Negative (no nodules, [...] who return to screening) Report drafted by Dinesh Park Dr (resident) I, Dr. FLYNN CASTILLO have personally reviewed and interpreted this examination/study. This report was electronically signed by FLYNN CASTILLO ??on 02/04/2021 1:52 PM . Narrative 02/04/2021 1:52 PM CDT Procedure Information DATE: 02/04/2021 7:13 AM EXAMINATION: Computed tomography (CT) of the chest without contrast TECHNIQUE: CT of the chest was performed without contrast according to low-dose protocol. Clinical Information HISTORY: 60-year-old male with history of tobacco abuse, Lung cancer screening COMPARISON: CT Chest without Contrast dated 09/14/2019 Findings Evaluation of visceral and vascular structures is degraded due to lack of intravenous contrast administration. Lines/Tubes: None. Lower neck and axillae: Normal. Mediastinum and Teresa: No enlarged lymph nodes are present. Heart and Pericardium: The cardiac chambers are normal in size. No pericardial fluid or thickening is present. Lung Parenchyma, Airways, and Pleural Spaces: Lung lesion: None No pulmonary parenchymal or airway process is present. There is no pleural effusion or pneumothorax. A left lower lobe calcified granuloma is present. Bones and Soft Tissue: Left-sided chronic rib fracture deformities are identified. Degenerative changes are Upper Abdomen: Partially visualized left renal cystic lesion again noted. Procedure Note Flynn Castillo MD - 02/04/2021 Procedure Information DATE: 02/04/2021 7:13 AM EXAMINATION: Computed tomography (CT) of the chest without contrast TECHNIQUE: CT of the chest was performed without contrast according to low-dose protocol. Clinical Information HISTORY: 60-year-old male with history of tobacco abuse, Lung cancer screening COMPARISON: CT Chest without Contrast dated 09/14/2019 Findings Evaluation of visceral and vascular structures is degraded due to lackof intravenous contrast administration. Lines/Tubes: None. Lower neck and axillae: Normal. Mediastinum and Teresa: No enlarged lymph nodes are present. Heart and Pericardium: The cardiac chambers are normal in size. No pericardial fluid or thickening is present. Lung Parenchyma, Airways, and Pleural Spaces: Lung lesion: None No pulmonary parenchymal or airway process is present. There is no pleural effusion or pneumothorax. A left lower lobe calcified granuloma is present. Bones and Soft Tissue: Left-sided chronic rib fracture deformities are identified. Degenerative changes are Upper Abdomen: Partially visualized left renal cystic lesion again noted. Impression: 1.No suspicious pulmonary nodule. Lung-RADS: 1 LungRADS Categories: 1 - Negative (no nodules, [...] who return to screening) Report drafted by Dinesh Park Dr (resident) I, Dr. FLYNN CASTILLO have personally reviewed and interpreted this examination/study. This report was electronically signed by FLYNN CASTILLO on 11:52 PM . Ian Pollock MD CT ORDERABLES documented in this encounter Visit Diagnoses Diagnosis Tobacco use disorder documented in this encounter Care Teams Joinery Patternmaker Relationship Specialty Start Date End Date Ian Pollock MD [address] [place] [address] PCP - General 08/21/20 05/29/23 documented as of this encounter
--- OUTSIDE RECORDS SUMMARY | 2024-10-30 06:50 | XMS_ITS | Encounter Summary ---
Author Organization [facility] Address [address] [facility] [place] [address] Care Team Providers Care Radio Communications Superintendent Name Role Phone Ian Pollock MD Primary Care Provider [phone] Reason for Visit * Reason Onset Date Comments Appointment 12/20/2021 Encounter Details Date Type Department Care Team ([facility] Contact Info) Description 12/20/2021 Telephone [facility] Card[facility] [address] [facility] [address] [place] [address] Maxine Stroud, RN Appointment Social History Tobacco Use Types Packs/Day Years [...] Telephone Encounter - Maxine Stroud RN - 12/20/2021 11:18 AM CST Patient called and left message wondering if there were any blood test that needed tob e done alongwith the ultrasound. Returned call to patient and informed him that a D-Dimer is to be done as well as the ultrasound torule out DVT. Patient states that he will get the test done. No other questions or concerns. ATIONAL AIDE documented in this encounter Plan of Treatment [...] on filedocumented in this encounter Care Teams Radio Communications Superintendent Relationship Specialty Start Date End Date Ian Pollock MD [address] [place] [address] PCP - General 08/21/20 05/29/23 documented as of this encounter
--- OUTSIDE RECORDS SUMMARY | 2024-10-30 06:50 | XMS_ITS | Encounter Summary ---
Author Organization [facility] Address [address] [place] [address] Care Team Providers Care Plumbing Installer Name Role Phone Ian Pollock MD Primary Care Provider [phone] Reason for Visit * Reason Onset Date Comments Forms 11/18/2021 Encounter Details Date Type Department Care Team ([facility] Contact Info) Description 11/18/2021 Telephone [facility] General Internal Medicine [address] [place] [address], [place] [id number] Ian Pollock MD [address] [place] [address] [place] [address] Forms Social History Tobacco Use Types Packs/Day Years [...] Telephone Encounter - Ian Pollock MD - 12/02/2021 8:55 PM CST Completed and in fax basket. OMER SUPPORT MANAGER * Telephone Encounter - Imelda Hoff LPN - 11/18/2021 1:12 PM CUSTOMER SUPPORT MANAGER Form printed from [employer] and placed in providers box. OMER SUPPORT MANAGER * Telephone Encounter - Aric Santamaria RN - 11/18/2021 11:34 AM CST Pt called, stated it's time for his annual transportation forms to be completed. Stated the company is faxing them now to the office for completion. Triage monitor for incoming transportation forms to be received via [employer]. OMER SUPPORT MANAGER documented in this encounter Plan of [...] on filedocumented in this encounter Care Teams Plumbing Installer Relationship Specialty Start Date End Date Ian Pollock MD [address] [place] [place] [address] PCP - General 08/21/20 05/29/23 documented as of this encounter
--- OUTSIDE RECORDS SUMMARY | 2024-10-30 06:50 | XMS_ITS | Encounter Summary ---
Author Organization [facility] Address [address] [facility] [place] [address] Care Team Providers Care Senior Stock Plan Administrator Name Role Phone Ian Pollock MD Primary Care Provider [phone] Reason for Visit * Reason Comments Refill Request Encounter Details Date Type Department Care Team (Late st Contact Info) Description 09/30/2021 Refill [facility] [address] [facility] [address] [place] [address] Sayed Torres Blankenship MD [address] [place] [address] [place] [address] Refill Request Social History Tobacco Use [...] on filedocumented in this encounter Care Teams Senior Stock Plan Administrator Relationship Specialty Start Date End Date Ian Pollock MD [address] [place] [address] PCP - General 08/21/20 05/29/23 documented as of this encounter
--- OUTSIDE RECORDS SUMMARY | 2024-10-30 06:50 | XMS_ITS | Encounter Summary ---
Author Organization [facility] Address [address] [facility] [place] [address] Care Team Providers Care Sql Report Analyst Name Role Phone Ian Pollock MD Primary Care Provider [phone] Reason for Visit * Reason Comments Refill Request Encounter Details Date Type Department Care Team (Late st Contact Info) Description 04/05/2021 Refill [facility] [address] [facility] [address] [place] [address] Sayed Torres Blankenship MD [address] [place] [address] [place] [address] Refill Request Social History Tobacco Use [...] on filedocumented in this encounter Care Teams Sql Report Analyst Relationship Specialty Start Date End Date Ian Pollock MD [address] [place] [address] PCP - General 08/21/20 05/29/23 documented as of this encounter
--- OUTSIDE RECORDS SUMMARY | 2024-10-30 06:50 | XMS_ITS | Encounter Summary ---
Author Organization [facility] Address [address] [place] [address] Care Team Providers Care Water Treatment Plant Engineer Name Role Phone Ian Pollock MD Primary Care Provider [phone] Reason for Visit * Reason Comments Refill Request Encounter Details Date Type Department Care Team (Late st Contact Info) Description 01/09/2021 Refill [facility] [address] [place] [address] [place] [address] Sayed Torres Blankenship MD [address] [place] [address] [place] [address] Refill Request Social History Tobacco [...] have Coronavirus / COVID-19? No / Unsure 12/28/2020 3:39 PM RETAIL ACCOUNT EXECUTIVE documented as of this encounter Functional Status [...] on filedocumented in this encounter Care Teams Water Treatment Plant Engineer Relationship Specialty Start Date End Date Ina Pollock MD [address] [place] [address] PCP - General 08/21/20 05/29/23 documented as of this encounter
--- OUTSIDE RECORDS SUMMARY | 2024-10-30 06:50 | XMS_ITS | Encounter Summary ---
Author Organization [facility] Address [address] [facility] [place] [address] Care Team Providers Care Spindle Maker Name Role Phone Ian Pollock MD Primary Care Provider Encounter Details Date Type Department Care Team (Late st Contact Info) Description 07/28/2021 10:30 AM CDT Office Visit [facility] [address] [facility] [address] [place] [address] Sayed Torres Blankenship MD [address] [place] [phone] Ischemic cardiomyopathy (Primary Dx) Social History Tobacco Use Types [...] Sign Reading Time Taken Comments Blood Pressure 140/90 07/28/2021 10:29 AM CDT Pulse 87 07/28/2021 10:29 AM CDT Temperature 36.6 ??C (97.9 ??F) 07/28/2021 10:29 AM C DT Respiratory Rate - - Oxygen Saturation 97% 07/28/2021 10:29 AM CDT Inhaled Oxygen Concentration - - Weight 114.3 kg (252 lb) 07/28/2021 10:29 AM CDT Height 175.3 cm (5' 9 ) 07/28/2021 10:29 AM CDT Body Mass Index 37.21 07/28/2021 10:29 AM CDT documented in this encounter Functional [...] this encounter Patient Instructions * Patient Instructions* Timothy Saldaña MD - 07/28/2021 11:07 AM CDT We are decreasing the coreg to 12.5 mg twice per day Stopping lasix Starting hydrochlorothiazide 25 mg once a day Nicotine patch for smoking cessation documented in this encounter Progress Notes * Timothy Saldaña MD - 07/28/2021 10:30 AM CDT Images from the original note were not included. Patient: Josafat Calvo Age: [age] year old Date of : 1960 Date of Admission: (Not on file) Date: 07/28/2021 PROGRESS NOTE Josafat Calvo??is a 59 year old??with hx of tobacco use, HTN, COPD, combined heart failure with recovered EF. Here for follow up today. He is feeling okay and has no worsening chest pain or shortness of breath. No orthopnea or pnd. He continues to smoke ? PAST MEDICAL HISTORY: He has a past medical history of Arthritis, Bipolar I disorder, most recent episode (or current) unspecified, Carpal tunnel syndrome, Generalized anxiety disorder, Head injury (2010), Heart failure with reduced ejection fraction (02/08/2021), History of drug abuse, Hypertension, Nondependent abuse of drugs, Pelvis fracture (2010), and Pulmonary emboli (2006). PAST SURGICAL HISTORY: His has a past surgical history that includes knee replacement (Right, ); hand surgery (Left, ); and endoscopy, colon, diagnostic. FAMILY HISTORY: His family history includes Cancer - Colon in his mother; Cancer - Lung (age of onset: 53) in his brother; Cancer - Other in his brother; Heart Failure in his father; Hypertension in his sister. He He indicated that his mother is . He indicated that his father is . He indicated that his sister is alive. He indicated that only one of his three brothers is alive. He indicated that his maternal grandmother is . He indicated that his maternal grandfather is . He indicated that his paternal grandmother is . He indicated that his paternal grandfather is . SOCIAL HISTORY: He reports that he has been smoking cigarettes. He has a 30.00 pack-year smoking history. He has never used smokeless tobacco. He reports current alcohol use of about 6.0 standard drinks of alcohol per week. He reports current drug use. Drug: Marijuana. ALLERGIES: Allergies Allergen Reactions ??? Lisinopril Anaphylaxis ??? Pcn [Penicillins] Anaphylaxis ??? Penicillin G Swelling HOME MEDICATIONS: (Not in a hospital admission) CURRENT MEDICATIONS: No current facility-administered medications for this visit. REVIEW OF SYSTEMS: General: No weight gain, appetite change, fatigue, weakness, fever/chills HEENT: No rashes, itching, headache, acute visual changes, hearing loss, tinnitus, rhinorrhea, hoarseness, sore throat Cardiac: No chest pain, palpitations, dyspnea on exertion, edema Respiratory: No shortness of breath, wheezing, sputum, hemoptysis, cough Gastrointestinal: No abdominal pain, nausea, vomiting, change in bowel habits, diarrhea, constipation, hematochezia, or melena Genitourinary: No dysuria, hematuria hesitancy, frequency Musculoskeletal: No muscle weakness, joint pain or stiffness, limited range of motion Neurologic: No numbness or tingling in extremities, dizziness, lightheadedness Hematologic: No easy bruising/bleeding PHYSICAL EXAM: @IOBRIEF@ @VSRANGES@ Temp 97.9 ??F (36.6 ??C) (Temporal) Ht 5' 9 (1.753 m) BMI 36.48 kg/m2 General appearance: The patient is alert, oriented, cooperative and in no distress. HEENT: Normocephalic. Neck: The thyroid is not enlarged and is symmetric, without tenderness, masses or nodules. Chest: Clear to auscultation bilaterally. Heart: Regular rate and rhythm. S1, S2 normal. No murmurs, clicks, rubs or gallops. There is no jugular venous distension noted. Abdomen: Soft, non-tender. Normal appearance. Bowel sounds normal. Extremities: Normal, atraumatic, no cyanosis or edema. No ulcers. Musculoskeletal: Normal range of motion. Pulses: All pulses 2+ and symmetric. Skin: Skin color, texture, turgor normal. No rashes or lesions. DATA REVIEWED: LABS: CBC: Recent Labs Component Name 06/17/20 0901 07/25/19 0935 07/25/19 0000 WBC 6.5 5.4 - HGB 13.3* 13.0* 13.0* HCT 40.9 39.7 40 MCV 84.9 87.6 - PLT - - 254 Coagulation Panel: Recent Labs Component Name 06/17/20 0901 PT 13.6 INR 1.1 BMP: Recent Labs Component Name 01/04/21 1318 06/17/20 0901 04/23/20 1218 NA - 138 - CL - 106 - CO2 24 21* 24 BUN 9 9 9 CREATININE 0.87 0.8 1.09 CALCIUM 9.5 9.3 10.0 No results for input(s): MG in the last 99531 hours. No results for input(s): PHOS in the last 43462 hours. Hepatic Panel: Recent Labs Component Name 07/25/19 0935 07/25/19 0000 AST 17 17 ALT 20 20* ALKPHOS 108 - ABG: No results for input(s): PH, PCO2, PO2 in the last 49749 hours. Invalid input(s): BICAR3 Amylase/Lipase: Invalid input(s): AMYL, LIPA Thyroid Studies: Recent Labs Component Name 09/19/19 0917 TSH 0.66 Cardiac Enzymes: No results for input(s): CKTOTAL, CKMB, TROPONINI in the last 39897 hours. Invalid input(s): CKMBINDEX Lipid Panel: Recent Labs Component Name 01/04/21 1318 LDLCALC 46 HDL 56 2-D ECHO: 07/23/20 The left ventricle is moderately increased in size. Left ventricular systolic function is normal with an ejection fraction by Biplane Method of Discs of 70 %. Left ventricular segmental wall motion is normal. The left ventricular diastolic function is normal, consistent with normal left ventricle filling pressures. There is mild to moderate mitral regurgitation. Normal right ventricular systolic function. Findings HEART CATHETERIZATION: 06/17/20 i. ?Left main: Large caliber vessel that [...] mild luminal irregularities noted. Gives offrPDA distally. ?? DOMINANCE: Right ?? ASSESSMENT & PLAN: ##Cardiomyopathy , EF recovered with medical therapy Etiology likely Mixed , ischemic and related to hypertension Hx of combined HF with mid range EF 46% , grade II diastolic dysfunction. EF recovered in recent echo -??now Compensated , NYHA class II RECS: ASA 81 and atorvastatin 40 QHS Since he has been having poorly controlled asthma/copd, will lower the dose of coreg to 12.5 mg BID not on ACEi/ARB due to reported hx of anaphylaxis??to ACEi Will start on hydrochlorothiazide 25 mg per day and stop the lasix. ?? ## CAD:?? - ASA 81 and atorvastatin 40 QHS - recheck lipid panel - smoking cessation ## Smoking: Counseled about quitting smoking. Nicotine patches ordered Follow up: 3 months Associated attestation - John Nelson MD - 07/28/2021 1:36 PM CDT I personally interviewed and evaluated the patient. Plan of care discussed with the fellow. I reviewed the fellow's note and concur with the findings, assessments and plans. I have no additions at this time. See fellow note for details. Briefly, Hfrecovered EF given worsened astham, trial lowering BB change furosemide to hctz for better bp control. John Nelson MD, [facility] documented in this encounter Miscellaneous Notes * Addendum Note - Dasha Sibley RN - 07/28/2021 2:01 PM CDTAddended by: DASHA SIBLEY on: 07/28/2021 02:01 PM Modules accepted: Orders documented in this encounter Plan of Treatment Not on file documented as of this encounter Goals Goal Patient Goal Type Associated Problems Recent Progress Patient-Stated? Author Mobility General No Stephanie Gallegos RN Note: Expected end date: *10/30/2019 The goal is to maintain or improve your mobility at the optimum level for you. Interventions: documented as of this encounter Visit Diagnoses Diagnosis Ischemic cardiomyopathy- Primary Other specified forms of chronic ischemic heart disease documented in this encounter Care Teams Spindle Maker Relationship Specialty Start Date End Date Ian Pollock MD [address] [address] PCP - General 08/21/20 05/29/23 documented as of this encounter
--- OUTSIDE RECORDS SUMMARY | 2024-10-30 06:50 | XMS_ITS | Encounter Summary ---
Author Organization [facility] Address [address] [facility] [place] [address] Care Team Providers Care Arm Maker Name Role Phone Ian Pollock MD Primary Care Provider [phone] Encounter Details Date Type Department Care Team (Latest Contact Info) Description 12/21/2020 Travel Social History Tobacco Use Types Packs/Day [...] have Coronavirus / COVID-19? 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
--- OUTSIDE RECORDS SUMMARY | 2024-10-30 06:50 | XMS_ITS | Encounter Summary ---
Author Organization [facility] Address [address] [place] [address] Care Team Providers Care Anodize Machine Operator Name Role Phone Ian Pollock MD Primary Care Provider Reason for Visit * Reason Onset Date Comments Refill Request MEDICATION REFILL 09/06/2021 Encounter Details Date Type Department Care Team (Late st Contact Info) Description 09/04/2021 Refill [facility] [address] [place] [phone] Agnieszka Haas MD [address] [place] [address] Refill Request; MEDICATION REFILL Social History Tobacco [...] this encounter Patient Instructions * Patient Instructions* Emily Martinez - 09/06/2021 8:54 AM PRIVATE MORTGAGE BANKER SAFE Patient called and needs his albuterol. He also needs the albuterol solution with it. He also needsinhaler. Please refill at [facility] at [phone]. Thank you Any questions please call patient Cindy ATE MORTGAGE BANKER SAFE documented in this encounter Plan of Treatment [...] on filedocumented in this encounter Care Teams Anodize Machine Operator Relationship Specialty Start Date End Date Ian Pollock MD [address] [facility] [place] [address] PCP - General 08/21/20 05/29/23 documented as of this encounter
--- OUTSIDE RECORDS SUMMARY | 2024-10-30 06:50 | XMS_ITS | Encounter Summary ---
Author Organization [facility] Address [address] [facility] [place] [address] Care Team Providers Care Shelving Supervisor Name Role Phone Ian Pollock MD Primary Care Provider [phone] Reason for Visit * Reason Onset Date Comments Results 01/13/2021 Encounter Details Date Type Department Care Team ([facility] Contact Info) Description 01/13/2021 Telephone [facility] [address] [facility] [address] [place] [address] Ludivina Pinzon, ALYX Results Social History Tobacco Use Types [...] COVID-19? No / Unsure 12/28/2020 3:39 PM HEALTH AND PHYSICAL EDUCATION TEACHER documented as of this encounter Functional Status [...] Yes 11/05/2015 documented as of this encounter Miscellaneous Notes * Telephone Encounter - Ludivina Pinzon, ALYX - 01/13/2021 2:23 PM CDT Pt called requesting lab results from BMP and lipid panel. Notified patient that everything came back normal, no out of range values. Pt coming for appointment with Dr. Tom Blankenship next week 01/20 at 2:30. Patient has no further questions at this time. Gave name and callback number. documented in this encounter Plan of [...] on filedocumented in this encounter Care Teams Shelving Supervisor Relationship Specialty Start Date End Date Ian Pollock MD [address] [place] [address] PCP - General 08/21/20 05/29/23 documented as of this encounter
--- OUTSIDE RECORDS SUMMARY | 2024-10-30 06:50 | XMS_ITS | Encounter Summary ---
Author Organization [facility] Address [address] [place] [place] [address] Care Team Providers Care Combat Systems Engineer Name Role Phone Ian Pollock MD Primary Care Provider Reason for Visit * Reason Onset Date Comments Refill Request 09/07/2021 Encounter Details Date Type Department Care Team (Late st Contact Info) Description 09/07/2021 Refill [facility] [address] [facility] [place] [phone] Shari Kauffman, ALXY Refill Request Social History Tobacco Use Types [...] Telephone Encounter - Agnieszka Haas MD - 09/07/2021 4:16 PM CST Patient called requesting refills on his inhalers and a prescription for prednisone in view of worsening shortness of breath. Patient was last seen in clinic in 03/2020,( no showed to multiple appointments since then due to issues with transportation), has a prior h/o cardiomyopathy with reduced EF ( now recovered), radiographic e/o emphysema, tobacco use. Given his multiple co-morbidities explained to him the importance of in person evaluation prior to prescribing a course of prednisone. Offered an option for an acute visit. Patient declined and plans to follow up in our clinic next week on 09/16/21. Advised him to be evaluated at the nearest UC/ER for his acute worsening of the symptoms. Refills for inhalers given. Agnieszka Haas MD Pulmonary / Critical Care Fellow Division of Pulmonary, Critical Care, & Sleep Medicine [facility] Beeper #:[phone] ROOM OPERATOR * Telephone Encounter - Shari Kauffman RN - 09/07/2021 1:53 PM DRY ROOM OPERATOR Refill Request: Also requesting prednisone RX for COPD exacerbation. Out of albuterol and needs symbicort refill , almost out. Josafat Calvo EDELMIRA: 11/18/20 NOV scheduled:09/16 Allergies: Allergies Allergen Reactions ??? Lisinopril Anaphylaxis ??? Pcn [Penicillins] Anaphylaxis ??? Penicillin G Swelling Pended Medication Order: Requested Prescriptions Pending Prescriptions Disp Refills ??? albuterol HFA (PROVENTIL; VENTOLIN; PROAIR) 108 (90 Base) MCG/ACT inhaler 18 g 3 Sig: Inhale 2 (two) puffs by mouth every 6 hours as needed ??? albuterol (PROVENTIL;VENTOLIN) (2.5 MG/3ML) 0.083% nebulizer solution 75 mL 0 Sig: Inhale 2.5 (two and one-half) mg by mouth every 4 hours as needed for Shortness of Breath ??? budesonide-formoterol (SYMBICORT) 160-4.5 MCG/ACT inhaler 3 Sig: Inhale 2 (two) puffs by mouth 2 times daily ROOM OPERATOR documented in this encounter Plan of Treatment Not on file documented as of this encounter Goals Goal Patient Goal Type Associated Problems Recent Progress Patient-Stated? Author Mobility General Stephanie Weiss, RN Note: Expected end date: *10/30/2019 The goal is to maintain or improve your mobility at the optimum level for you. Interventions: documented as of this encounter Visit Diagnoses Diagnosis Centrilobular emphysema (HCC)- Primary Other emphysema Panlobular emphysema (HCC) Other emphysema Cough documented in this encounter Care Teams Combat Systems Engineer Relationship Specialty Start Date End Date Ian Pollock MD [address] [place] [address] PCP - General 08/21/20 05/29/23 documented as of this encounter
--- OUTSIDE RECORDS SUMMARY | 2024-10-30 06:50 | XMS_ITS | Encounter Summary ---
Author Organization [facility] Address [address] [place] [address] Care Team Providers Care Grain Sacker Name Role Phone Ian Pollock MD Primary Care Provider [phone] Reason for Visit * Reason Comments Refill Request Encounter Details Date Type Department Care Team (Late st Contact Info) Description 01/22/2021 Refill [facility] [address] [facility] [address] [place] [address] Sayed Torres Blankenship MD [address] [place] [address] [place] [phone] Refill Request Social History Tobacco Use [...] COVID-19? No / Unsure 12/28/2020 3:39 PM ALEMITE OPERATOR documented as of this encounter Functional Status [...] on filedocumented in this encounter Care Teams Grain Sacker Relationship Specialty Start Date End Date Ian Pollock MD [address] [place] [address] PCP - General 08/21/20 05/29/23 documented as of this encounter
--- OUTSIDE RECORDS SUMMARY | 2024-10-30 06:50 | XMS_ITS | Encounter Summary ---
Author Organization [facility] Address [address] [place] [address] Care Team Providers Care Hydraulic Jack Operator Name Role Phone Ian Pollock MD Primary Care Provider [phone] Reason for Visit * Reason Onset Date Comments Results 12/30/2020 Encounter Details Date Type Department Care Team ([facility] Contact Info) Description 12/30/2020 Telephone [facility] [address] [place] [phone] Agnieszka Haas MD [address] [place] [address] Results Social History Tobacco Use Types Packs/Day [...] COVID-19? No / Unsure 12/28/2020 3:39 PM FACETOR documented as of this encounter Functional Status [...] Telephone Encounter - Agnieszka Haas MD - 12/30/2020 3:53 PM CST Called and updated of his Methacholine challenge test and FeNO results. Smoking cessation counseling given. Agnieszka Haas MD Pulmonary / Critical Care Fellow Division of Pulmonary, Critical Care, & Sleep Medicine [facility] Beeper #[phone] TOR documented in this encounter Plan of Treatment [...] on filedocumented in this encounter Care Teams Hydraulic Jack Operator Relationship Specialty Start Date End Date Ian Pollock MD [address] [facility] [address] [facility] [place] [address] PCP - General 08/21/20 05/29/23 documented as of this encounter
--- OUTSIDE RECORDS SUMMARY | 2024-10-30 06:50 | XMS_ITS | Encounter Summary ---
Author Organization [facility] Health Address [address] [place] [address] Care Team Providers Care Application Support Analyst Name Role Phone Ian Pollock MD Primary Care Provider [phone] Reason for Visit * Reason Comments Pain Leg left leg pain he thi nks its a bloodclot MEDICATION REFILL Encounter Details Date Type Department Care Team (Late st Contact Info) Description 11/09/2021 3:40 PM ANNEALING FURNACE TENDER Video Visit [facility] General Internal Medicine [address] [place] [address], [place] [id number] Ian Pollock MD [address] [place] [address] DIV OF [facility] [place] [address] Chronic midline low back pain without sciatica ; Lumbosacral disc disease; Foraminal stenosis of lumbar region Social History Tobacco Use Types Packs/Day Years [...] - Inhaled Oxygen Concentration - - Weight 111.1 kg (245 lb) 11/09/2021 1:19 PM ANNEALING FURNACE TENDER Height 175.3 cm (5' 9 ) 11/09/2021 1:19 PM ANNEALING FURNACE TENDER Body Mass Index 36.18 11/09/2021 1:19 PM ANNEALING FURNACE TENDER documented in this encounter Functional Status Functional [...] this encounter Patient Instructions * Patient Instructions* Keiko Ambrosio - 11/09/2021 1:19 PM ANNEALING FURNACE TENDER [facility] Internal Medicine is committed to providing you with the best care possible. We areworking towards becoming a Patient Centered Medical Home (PCMH), a model of care that puts patientsat the forefront of care. PCMH Centers build better relationships between patients and their clinical care teams. Practices that earn recognition have made a commitment to continuous quality improvement and a patient-centered approach to care. Shared decision making is a cooper component of patient-centered health care. It is a process in whichclinicians and patients work together to make decisions based on clinical evidence that balances risk and expected outcomes with patient preferences and values. How to Contact Us Between Office Visits For scheduling routine appointments, requesting refills or leaving a message for your doctor, the office phone is [phone]. You will be given options to get [...] primary care provider. Please call us at [phone], option 1, then option 1 in the morning you would like to be seen. Our fax number is [phone]. Instructions for reaching the practice after office hours For urgent concerns that cannot wait until phone lines are open on the next business day, please call [phone] to speak to the covering General Internal Medicine provider. Identify yourself as a patient in our practice and give the popcorn machine operator your doctor's name. The popcorn machine operator will contact the physician business administration program chair. You can generally expect a return call within 30 minutes. Prescription Refills Contact your pharmacy to request all refills. You may also send a Lost My Name message for refills. Please allow a minimum of 48-72 hours for your prescription to be completed. Your pharmacy will notify you when your prescription is ready to be picked up. SCHEDULE YOUR OWN APPOINTMENT AT [facility] We are excited to announce that some [facility] appointments can now be scheduled online. If you are not able to access the type of appointment that you need using this service, our [facility] Scheduling department will be happy to continue to serve you. Use one of these options to schedule your next appointment today: ??? Access self-scheduling options by visiting the [facility] Online Scheduling Webpage. ??? Make an appointment by calling [facility] Central [phone] Visit our website at [email or web address] for information about our practice and an interactive health encyclopedia. You told me you could not remember your last tetanus booster. We recommend one every 10 years. You can discuss this with your pharmacist. You do not need a prescription for a tetanus vaccine. ALING FURNACE TENDER documented in this encounter Progress Notes * Ian Pollock MD - 11/09/2021 3:40 PM CST Telephone Note Patient Verification & Telemedicine Based Consent Today's visit was conducted virtually due to COVID-19 countermeasures. The patient has given verbalconsent to have today's visit conducted by this same means with treatment provided remotely. The patient verbally consents to the billing and collection practices of the provider's medical group. Josafat is a 61 year old male who has completed a telephone encounter. Subjective Chief Complaint Patient presents with ??? Pain Leg left leg pain he thinks its a bloodclot ??? MEDICATION REFILL Follow up encounter Chronic low back pain. Hip pain on left side. Seems worse with weather/ Had herniated disc. Has foraminal stenosis of lumbosacral spine. Gabapentin 300 mg twice a day Has been out for a month. Has been seen in Orthopedics and Orthopedic Spine Surgery. He tells me he has not been able to quit smoking. Will follow up with Ortho Spine after. Has had injections that helped. Doing some stretches Walking some times. Up to 5 blocks. No falls. Weight up 30 pounds. Less activity. Has regular visits with Psychiatry Pulmonary, Cardiology, Sleep Medicine, GI, Urology Patient history reviewed in [facility]. Objective Ht 5' 9 (1.753 m) Wt 245 lb (111.1 kg) BMI 36.18 kg/m2 Wt Readings from Last 3 Encounters: 11/09/21 245 lb (111.1 kg) 09/16/21 249 lb 12.8 oz (113.3 kg) 07/28/21 252 lb (114.3 kg) No physical exam was able to be performed by phone. Anxious. Not sad. Data review: Labs reviewed. Assessment & Plan Chronic midline low back pain without sciatica - Plan: gabapentin (NEURONTIN) 300 MG capsule Lumbosacral disc disease - Plan: gabapentin (NEURONTIN) 300 MG capsule Foraminal stenosis of lumbar region - Plan: gabapentin (NEURONTIN) 300 MG capsule Restart gabapentin 300 mg bid. Local measures reviewed. Stretches encouraged. PT if persists Smoking cessation Follow up with Ortho Spine after smoking cessation. Recommend tetanus vaccine at his pharmacy Encounter duration: 21 minutes Patient location: Home This encounter was performed using: audio Reason for not using video for visit: patient does not have the technology The plan was reviewed with the patient and the patient confirmed understanding of the plan and all follow-up steps. Ian Pollock MD ALING FURNACE TENDER documented in this encounter Plan of [...] Procedure Name Priority Date/Time Associated Diagnosis Comments ALLERGEN INTERPRETATION 11/08/19 10:21 AM ANNEALING FURNACE TENDER ALLERGEN RESPIRATORY PNL REGION 8 ([place]) 11/08/2021 10:21 AM ANNEALING FURNACE TENDER CBC W AUTO DIFFERENTIAL 11/08/19 10:21 AM ANNEALING FURNACE TENDER documented in this encounter Results * CBC WITH DIFFERENTIAL (11/08/2021 10:21 AM ANNEALING FURNACE TENDER) Pathologist [facility] White Blood Cell Count 6.9 3.8 - 10.8 Thousand/u L [facility] RBC 5.37 4.20 - 5.80 Million/uL [facility] Hemoglobin 14.6 13.2 - 17.1 g/dL [facility] Hematocrit 45.1 38.5 - 50.0 % [facility] MCV 84.0 80.0 - 100.0 fL [facility] MCH 27.2 27.0 - 33.0 pg [facility] MCHC 32.4 32.0 - 36.0 g/dL [facility] RDW 13.1 11.0 - 15.0 % [facility] Platelet Count 222 140 - 400 Thousand/u L [facility] MPV 10.9 7.5 - 12.5 fL [facility] Neutrophil Absolute 2739 1500 - 7800 cells/uL [facility] Lymphocytes Absolute 3043 850 - 3900 cells/uL [facility] Absolute Monocytes 725 200 - 950 cells/uL [facility] Eosinophils Absolute 345 15 - 500 cells/uL [facility] Basophils Absolute 48 0 - 200 cells/uL [facility] Granulocytes % 39.7 % [facility] Lymphocytes % 44.1 % [facility] Monocytes % 10.5 % [facility] Eosinophils % 5.0 % [facility] Basophils % 0.7 % [facility] Comment: Test Performed at: [email or web address] ??[id number] PRUDENCIO ALDANA DO,MPH 11/08/2021 10:2 1 AM ANNEALING FURNACE TENDER 11/08/2021 10:22 AM ANNEALING FURNACE TENDER Tariq Recio MD LAB - HEMATOLOGY ORD ERABLES [facility] [address] [place] [address] * ALLERGEN INTERPRETATION (11/08/2021 10:21 AM ANNEALING FURNACE TENDER) Interpretation See Below [facility] Comment: Specific ?Level [...] analytical performance characteristics have been determined by [facility]. It has not been cleared or approved by the U.S. Food and Drug Administration. This assay has been validated pursuant to the CLIA regulations and is used for clinical purposes. Test Performed at: [email or web address] [address] ??[address] PRUDENCIO ALDANA DO,MPH 11/08/2021 10:2 1 AM ANNEALING FURNACE TENDER 11/08/2021 10:22 AM ANNEALING FURNACE TENDER Tariq Recio MD LAB - SEROLOGY ORDER DANAY [facility] [address] [place] [address] * (ABNORMAL) ALLERGEN RESPIRATORY PROF ([place]) IGE (11/08/2021 10:21 AM ANNEALING FURNACE TENDER) Allergen Dermatophagoides pteronyssinus <0.10 kU/L [facility] Class [...] kU/L [facility] Class 0 [facility] Allergen Cockroach Mauritian <0.10 kU/L [facility] Class 0 [facility] Allergen Maple <0.10 kU/L [facility] Class 0 [facility] Allergen Mountain Woodson <0.10 kU/L [facility] Class 0 [facility] Allergen [place] Tree <0.10 kU/L [facility] Class 0 [facility] Allergen [place] <0.10 kU/L [facility] Class 0 [facility] Allergen [place] Tree <0.10 kU/L [facility] Class 0 [facility] Allergen White Clay <0.10 kU/L [facility] Class 0 [facility] Allergen [place] <0.10 kU/L [facility] Class 0 [facility] Allergen Elm <0.10 kU/L [facility] Class 0 [facility] Allergen Bisbee/Pecan Tree <0.10 kU/L [facility] Class 0 [facility] Allergen White Granger <0.10 kU/L [facility] Class 0 [facility] Allergen Bermuda Grass <0.10 kU/L [facility] Class 0 [facility] Allergen Hermes Grass <0.10 kU/L [facility] Class 0 [facility] Allergen Common Ragweed <0.10 kU/L [facility] Class 0 [facility] Allergen Rough Pigweed <0.10 kU/L [facility] Class 0 [facility] Allergen Central African Thistle <0.10 kU/L [facility] Class 0 [facility] Allergen Rough Curiel Elder <0.10 kU/L [facility] Class 0 [facility] Allergen Mouse Urine Protein <0.10 kU/L [facility] Class 0 [facility] IgE 140(H) <UV=547 kU/L [facility] Comment: Test Performed at: [email or web address] [address] [place] ??[address] PRUDENCIO ALDANA DO,MPH 11/08/2021 10:2 1 AM ANNEALING FURNACE TENDER 11/08/2021 10:22 AM ANNEALING FURNACE TENDER Tariq Recio MD LAB - CHEMISTRY [facility] [address] [place] [address] documented in this encounter Visit Diagnoses Diagnosis Chronic midline low back pain without sciatica- Primary Lumbosacral disc disease Other and unspecified disc disorder of lumbar region Foraminal stenosis of lumbar region Spinal stenosis, lumbar region, without neurogenic claudication documented in this encounter Care Teams Application Support Analyst Relationship Specialty Start Date End Date Ian Pollock MD [address] [address] PCP - General 08/21/20 05/29/23 documented as of this encounter
--- OUTSIDE RECORDS SUMMARY | 2024-10-30 06:50 | XMS_ITS | Encounter Summary ---
Author Organization [facility] Address [address] [place] [address] Care Team Providers Care Tooth Clerk Name Role Phone Ian Pollock MD Primary Care Provider [phone] Reason for Visit * Reason Comments Refill Request Encounter Details Date Type Department Care Team (Late st Contact Info) Description 06/17/2021 Refill [facility] Pulmonary, Critical Care and Sleep Medicine [address] [place] [address] Agnieszka Haas MD [address] [place] [address] Refill Request Social History Tobacco Use Types [...] encounter Miscellaneous Notes * Telephone Encounter - Razia Bates - 06/17/2021 1:32 PM CDT Last office visit 04/21/2020, pt last appt 11/18/20 (tele visit), pt had appt today and cancelled. Ptneeds to be seen in clinic, called and lvm documented in this encounter Plan of Treatment [...] on filedocumented in this encounter Care Teams Tooth Clerk Relationship Specialty Start Date End Date Ian Pollock MD [address] [place] [address] PCP - General 08/21/20 05/29/23 documented as of this encounter
--- OUTSIDE RECORDS SUMMARY | 2024-10-30 06:50 | XMS_ITS | Encounter Summary ---
Author Organization [facility] Address [address] [place] [address] Care Team Providers Care Pelletising Extruder Operator Name Role Phone Ian Pollock MD Primary Care Provider [phone] Encounter Details Date Type Department Care Team (Latest Contact Info) Description 01/29/2021 Travel Social History Tobacco Use Types Packs/Day [...] on filedocumented in this encounter Care Teams Pelletising Extruder Operator Relationship Specialty Start Date End Date Ian Pollock MD [address] [place] [address] PCP - General 08/21/20 05/29/23 documented as of this encounter
--- OUTSIDE RECORDS SUMMARY | 2024-10-30 06:50 | XMS_ITS | Encounter Summary ---
Author Organization [facility] Health Address [address] [place] [address] Care Team Providers Care Loan Operations Manager Name Role Phone Ian Pollock MD Primary Care Provider Reason for Referral * Procedure (Routine) - Closed Specialty Diagnoses / Procedures Referred By Florentino lowe Referred To Contact Pulmonary Disease Diagnoses Dyspnea on exertion Procedures BRONCHIAL CHALLENGE WITH METHACHOLINE Tariq Recio MD [address] [facility] 2L DIV OF PULMONARY/[place] [address] [facility] [address] [place] [address] Referral ID Status Reason Start Date Expiration Date Visits Re quested Visits Authorized [id number] Closed 11/18/2020 11/18/2021 1 1 ERY CLERK CHECKING Reason for Visit * Procedure (Routine) - Closed Specialty Diagnoses / Procedures Referred By Florentino lowe Referred To Contact Pulmonary Disease Diagnoses Dyspnea on exertion Procedures BRONCHIAL CHALLENGE WITH METHACHOLINE Tariq Recio MD [address] [facility] 2L DIV OF PULMONARY/[place] [address] [facility] [address] [address] [place] [address] Referral ID Status Reason Start Date Expiration Date Visits Re quested Visits Authorized [id number] Closed 11/18/2020 11/18/2021 1 1 Encounter Details Date Type Department Care Team (Latest Contact Info) Description 12/21/2020 8:51 AM GROCERY CLERK CHECKING - 12/21/2020 9:21 AM GROCERY CLERK CHECKING Hospital Encounter [facility] [address] [place] [address] Tariq Recio MD [address] [facility] 2L DIV OF PULMONARY/[place] [address] Discharge Disposition: Home or Self Care Social [...] COVID-19? No / Unsure 12/21/2020 8:44 AM GROCERY CLERK CHECKING documented as of this encounter Functional Status [...] Yes 11/05/2015 documented as of this encounter Medications at [...] 09/10/2020 09/07/2021 carvedilol (COREG) 25 MG tablet Take 1 tablet by mouth 2 times daily 60 tablet 2 10/13/2020 01/11/2021 fluticasone propionate (FLONASE) 50 MCG/ACT nasal spray SHAKE LIQUID AND USE 2 SPRAYS IN EACH NOSTRIL EVERY DAY 16 g 11 09/30/2020 12/14/2022 furosemide (LASIX) 20 MG tablet Take 1 tablet by mouth once daily 90 tablet 10/28/2020 01/22/2021 gabapentin (NEURONTIN) 300 MG capsuleIndications:Ch ronic midline [...] once daily 90 capsule 4 04/21/2020 02/08/2021 Pseudoephedrine-Guaif enesin (MUCINEX D PO) 2021 sildenafil (VIAGRA) 100 MG tabletIndications:Ere ctile Dysfunction Take 1 tablet by mouth as directed 1 hour prior to intercourse Reasons: Erectile Dysfunction 30 tablet 3 09/29/2020 01/19/2022 spironolactone (ALDACTONE) 50 MG tablet Take 1 tablet by mouth once daily 30 tablet 2 10/13/2020 01/11/2021 sucralfate (CARAFATE) 1 GM tablet TK 1 [...] eczema 60 g 1 10/08/2020 02/08/2021 Umeclidinium [place] (INCRUSE ELLIPTA IN) 021 ziprasidone (GEODON) 20 MG capsule TK 1 C PO HS 10/09/2019 01/19/2022 ziprasidone (GEODON) 40 MG capsule 08/25/2020 01/29/2024 documented as of this encounter Procedure Notes * Hossein Mendez DO - 12/21/2020 12:10 PM CSTAssociated Order(s): BRONCHIAL CHALLENGE WITH METHACHOLINE Images from the original note were not included. ERY CLERK CHECKING * Hossein Mendez DO - 12/21/2020 12:10 PM CSTAssociated Order(s): FRACTIONAL EXHALED NITRIC OXIDE Images from the original note were not included. ERY CLERK CHECKING documented in this encounter Plan of Treatment [...] Procedure Name Priority Date/Time Associated Diagnosis Comments BRONCHIAL CHALLENGE Routine 12/21/2020 1 2:10 PM GROCERY CLERK CHECKING Dyspnea on exertion FRACTIONAL EXHALED NITRIC OXIDE Routine 12/21/2020 12:10 PM GROCERY CLERK CHECKING Dyspnea on exertion documented in this encounter Results * BRONCHIAL CHALLENGE WITH METHACHOLINE (12/21/2020 12:10 PM GROCERY CLERK CHECKING) Paul Moran MD - 12/21/2020 12:10 PM GROCERY CLERK CHECKING [facility] DEPARTMENT OF PULMONARY, CRITICAL CARE, AND SLEEP MEDICINE METHACHOLINE CHALLENGE TEST Josafat F Umesh 12/21/2020 Hossein Mendez DO INTERPRETATION Methacholine challenge [...] of Pulmonary, Critical Care and Sleep Medicine [facility] I have personally reviewed the fellows interpretation of the test and made any necessary corrections. Paul Galeano MD Supervisor Gluingassistant bookkeeper Division of Pulmonary, Critical Care, & Sleep Medicine Narrative Paul Galeano MD - 12/21/2020 12:10 PM GROCERY CLERK CHECKING Hossein Mendez DO ? 12/21/2020 ??1:36 PM Tariq Recio MD PFT ORDERABLES * FRACTIONAL EXHALED NITRIC OXIDE (12/21/2020 12:10 PM GROCERY CLERK CHECKING) Impressions Paul Galeano MD - 12/21/2020 12:10 PM GROCERY CLERK CHECKING [facility] DEPARTMENT OF PULMONARY, CRITICAL CARE, AND SLEEP MEDICINE EXHALED NITRIC OXIDE (FeNO) Josafat F Umesh 12/21/2020 INTERPRETATION The measurement of fractional exhaled nitric oxide (FENO) was 35 ppb. IMPRESSION: 1. High normal fractional exhaled nitric oxide (35 ppb). 2. Compared to prior study on 09/14/2018, the FeNO has increased by 30 ppb. Hossein Mendez DO, PGY4 Pulmonary & Critical Care Fellow Division of Pulmonary, Critical Care and Sleep Medicine [facility] I have personally reviewed the fellows interpretation of the test and made any necessary corrections. Paul Galeano MD Supervisor Gluingassistant bookkeeper Division of Pulmonary, Critical Care, & Sleep Medicine Narrative Paul Galeano MD - 12/21/2020 12:10 PM GROCERY CLERK CHECKING Hossein Mendez, DO ? 12/21/2020 ??1:37 PM Tariq Recio MD RESPIRATORY THERAPY ORDERABLES documented in this encounter Visit Diagnoses Diagnosis Dyspnea on exertion Other dyspnea and respiratory abnormality documented in this encounter Care Teams Loan Operations Manager Relationship Specialty Start Date End Date Ian Pollock MD [address] [place] [address] PCP - General 08/21/20 05/29/23 documented as of this encounter
--- OUTSIDE RECORDS SUMMARY | 2024-10-30 06:50 | XMS_ITS | Encounter Summary ---
Author Organization [facility] Health Address [address] [place] [address] Care Team Providers Care Hvac Project Engineer Name Role Phone Ian Pollock MD Primary Care Provider [phone] Encounter Details Date Type Department Care Team (Latest Contact Info) Description 12/28/2020 Travel Social History Tobacco Use Types Packs/Day [...] COVID-19? No / Unsure 12/28/2020 3:39 PM EMERGENCY MEDICINE documented as of this encounter Functional Status [...] on filedocumented in this encounter Care Teams Hvac Project Engineer Relationship Specialty Start Date End Date Ian Pollock MD [address] [place] [address] PCP - General 08/21/20 05/29/23 documented as of this encounter
--- OUTSIDE RECORDS SUMMARY | 2024-10-30 06:50 | XMS_ITS | Encounter Summary ---
Author Organization [facility] Address [address] [facility] [address] Care Team Providers Care Smudger Name Role Phone Ian Pollock MD Primary Care Provider [phone] Reason for Visit * Reason Onset Date Comments Epidemic Concern 08/16/2021 Encounter Details Date Type Department Care Team ([facility] Contact Info) Description 08/16/2021 Telephone [facility] General Internal Medicine [address] [place] [address], [facility] [place] [id number] Ian Pollock MD [address] [place] [address] [place] [address] Epidemic Concern Social History Tobacco Use Types Packs/Day Years [...] encounter Miscellaneous Notes * Telephone Encounter - Aric Santamaria RN - 08/16/2021 10:15 AM CDT Pt called, stated he had the J&J vaccine and wanted to know if he needed the booster shot. Per the CDC as of today's date the recommendations are: At this time, the Pfizer-BioNTech booster authorization only applies to people whose primary serieswas Pfizer-BioNTech vaccine. People in the recommended groups who got the Moderna or J&J/Emmie vaccine may need a booster shot. More data on the effectiveness and safety of Moderna and J&J/Emmie booster shots are expected soon. With those data in hand, CDC will keep the public informed w ith a timely plan for Moderna and J&J/Emmie booster shots. Pt verbalized understanding. documented in this encounter Plan of Treatment [...] on filedocumented in this encounter Care Teams Smudger Relationship Specialty Start Date End Date Ian Pollock MD [address] [place] [address] PCP - General 08/21/20 05/29/23 documented as of this encounter
--- OUTSIDE RECORDS SUMMARY | 2024-10-30 06:50 | XMS_ITS | Encounter Summary ---
Author Organization [facility] Address [address] [place] [address] Care Team Providers Care Central Office Repairer Name Role Phone Ian Pollock MD Primary Care Provider [phone] Reason for Visit * Reason Comments Refill Request Encounter Details Date Type Department Care Team (Late st Contact Info) Description 09/18/2021 Refill [facility] Cardiology [address] [facility] [address] [place] [address] Sayed Torres Blankenship MD [address] [place] [address] [place] [address] Refill Request Social History Tobacco Use [...] Telephone Encounter - Maxine Stroud RN - 09/20/2021 8:56 AM CST Received electronic refill request from [facility] pharmacy for spironolactone. Last seen 07/28/2021 Sayed Torres Blankenship MD Has appt: 10/27/21 Refilled per protocol RONMENTAL SERVICE AIDE documented in this encounter Plan of [...] on filedocumented in this encounter Care Teams Central Office Repairer Relationship Specialty Start Date End Date Ian Pollock MD [address] [place] [address] PCP - General 08/21/20 05/29/23 documented as of this encounter
--- OUTSIDE RECORDS SUMMARY | 2024-10-30 06:50 | XMS_ITS | Encounter Summary ---
Author Organization [facility] Address [address] [place] [address] Care Team Providers Care Airfreight Operations Agent Name Role Phone Ian Pollock MD Primary Care Provider [phone] Reason for Visit * Reason Onset Date Comments MEDICATION REFILL 07/28/2021 Encounter Details Date Type Department Care Team (Late st Contact Info) Description 07/28/2021 Refill [facility] [address] [place] [address] John Nelson MD [id number] [place] [address] MEDICATION REFILL Social History Tobacco Use Types [...] on filedocumented in this encounter Care Teams Airfreight Operations Agent Relationship Specialty Start Date End Date Ian Pollock MD [address] [facility] [place] [address] PCP - General 08/21/20 05/29/23 documented as of this encounter
--- OUTSIDE RECORDS SUMMARY | 2024-10-30 06:50 | XMS_ITS | Encounter Summary ---
Author Organization [facility] Health Address [address] [place] [address] Care Team Providers Care Can Filling Room Sweeper Name Role Phone Ian Pollock MD Primary Care Provider Encounter Details Date Type Department Care Team (Latest Contact Info) Description 01/17/2022 Travel Social History Tobacco Use Types Packs/Day [...] on filedocumented in this encounter Care Teams Can Filling Room Sweeper Relationship Specialty Start Date End Date Ian Pollock MD [address] [place] [address] PCP - General 08/21/20 05/29/23 documented as of this encounter
--- OUTSIDE RECORDS SUMMARY | 2024-10-30 06:50 | XMS_ITS | Encounter Summary ---
Author Organization [facility] Health Address [address] [place] [address] Care Team Providers Care Staff Educator Name Role Phone Ian Pollock MD Primary Care Provider Encounter Details Date Type Department Care Team (Latest Contact Info) Description 01/17/2022 3:35 PM CDT - 01/17/2022 11:59 PM CDT Hospital Encounter [facility] OP DRAW STATION [address] [place] [phone] Discharge Disposition: Home or Self Care Social [...] Procedure Name Priority Date/Time Associated Diagnosis Comments D-DIMER Routine 01/17/2022 3:53 PM CDT Arthralgia of left lower leg documented in this encounter Results * D-DIMER (01/17/2022 3:53 PM CDT) D-Dimer Quantitative 0.48 <=0.50 mcg/mL FEU 01/17/2022 5:14 PM CDT [facility] Comment: In the absence of [...] Lomas MD LAB - COAGULATION O RDERABLES [facility] [address] [place] [address], [facility] [phone] documented in this encounter Visit Diagnoses Diagnosis Arthralgia of left lower leg Pain in joint, lower leg documented in this encounter Care Teams Staff Educator Relationship Specialty Start Date End Date Ian Pollock MD [address] [place] [address] OF [facility] [place] [address] PCP - General 08/21/20 05/29/23 documented as of this encounter
--- OUTSIDE RECORDS SUMMARY | 2024-10-30 06:50 | XMS_ITS | Encounter Summary ---
Author Organization [facility] Address [address] [place] [address] Care Team Providers Care Director Data Processing Name Role Phone Ian Pollock MD Primary Care Provider Reason for Visit * Reason Onset Date Comments MEDICATION REFILL 01/05/2022 Encounter Details Date Type Department Care Team (Late st Contact Info) Description 01/05/2022 Refill [facility] [address] [facility], [place] [id number] Aliza Hammer, DOZER OPERATOR REFILL Social History Tobacco Use Types Packs/Day [...] Telephone Encounter - Aliza Hammer RN - 01/05/2022 11:29 AM MANAGER DISH Refill Request Josafat Calvo Allergies: Allergies Allergen Reactions ??? Lisinopril Anaphylaxis ??? Pcn [Penicillins] Anaphylaxis ??? Penicillin G Swelling Pended Medication Order: Requested Prescriptions Pending Prescriptions Disp Refills ??? albuterol HFA (PROVENTIL; VENTOLIN; PROAIR) 108 (90 Base) MCG/ACT inhaler 18 g 3 Sig: Inhale 2 (two) puffs by mouth every 6 hours as needed GER DISH documented in this encounter Plan of Treatment [...] emphysema documented in this encounter Care Teams Director Data Processing Relationship Specialty Start Date End Date Ian Pollock MD [address] [facility] [address] [facility] [place] [address] PCP - General 08/21/20 05/29/23 documented as of this encounter
--- OUTSIDE RECORDS SUMMARY | 2024-10-30 06:50 | XMS_ITS | Encounter Summary ---
Author Organization [facility] Address [address] [facility] [place] [address] Care Team Providers Care Director Of Vocational Guidance Name Role Phone Ian Pollock MD Primary Care Provider [phone] Katina Casiano DO Unavailable [phone] Xavi ACOSTA MD, Jameel Gaviria Primary Care Provider + Katina Casiano DO Unavailable [phone] Tracey Ang PA Unavailable [phone] Belkis Angel MARKETING ADMINISTRATOR-SAMPLE TESTER GRINDER Primary Care Provider + Natalie Baum Primary Care Provider [phone] Reason for Visit * Reason Onset Date Comments Letter 12/02/2020 Encounter Details Date Type Department Care Team (Late st Contact Info) Description 12/02/2020 Telephone [facility] [address] [place] [address] Agnieszka Haas MD [address] [place] [address] Letter Social History Tobacco Use Types Packs/Day Years [...] COVID-19? Unable to assess 11/18/2020 1:41 PM LAUNDRY OR DRY CLEANERS COUNTER CLERK documented as of this encounter Functional Status [...] * Telephone Encounter - Blanca Candelario - 12/02/2020 8:45 AM CST Current Provider name: Dr. Agnieszka Haas Reason for call: Mr. Josafat Calvo called in to get a letter from you stating he has EMPHYSEMA, so he can perhaps get his covid vaccine sooner Thanks. Patient Call Back number: [phone] DRY OR DRY CLEANERS COUNTER CLERK documented in this encounter Plan of [...] on filedocumented in this encounter Care Teams Director Of Vocational Guidance Relationship Specialty Start Date End Date Ian Pollock MD [address] [place] [address] PCP - General 08/21/20 05/29/23 Jameel Hurley III, MD [address] [place] [address] PCP - General Internal Medicine 06/05/23 08/28/23 Belkis Angel APRN-SAMPLE TESTER GRINDER [address] [place] [address] PCP - General Nurse Practitioner 08/29/23 05/05/24 Natalie Baum [address] [place] [address] PCP - General 05/06/24 Katina Casiano DO [address] OF GEN INTERNAL MEDICINE [place], [place] Resident - PCP Internal Medicine 08/10/22 05/29/23 Katina Casiano DO [address] [facility] [address] DIV OF GEN INTERNAL MEDICINE [place], [place] Hospitalist 06/05/23 Tracey Ang PA [address] [facility] [address] [place] [address] Physician Retort Firer 08/15/23 documented as of this encounter
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
--- OUTSIDE RECORDS SUMMARY | 2024-10-30 06:50 | XMS_ITS | Encounter Summary ---
Author Organization [facility] Address [address] [facility] [place] [address] Care Team Providers Care Special Procedure Technologist Name Role Phone Ian Pollock MD Primary Care Provider [phone] Reason for Visit * Reason Onset Date Comments MEDICATION REFILL 09/01/2021 Encounter Details Date Type Department Care Team (Late st Contact Info) Description 09/01/2021 Refill [facility] Medicine [address] [place] [address], [facility] [place] [address] Ian Pollock MD [address] [place] [address] [place] [address] MEDICATION REFILL Social History Tobacco Use Types [...] Telephone Encounter - Radha Jones RN - 09/01/2021 11:27 AM CDT Refill Request Josafat Calvo EDELMIRA: 10/08/20 NOV scheduled: 11/09/2021 LRF: 07/27/21 Qty Disp: 60 # of refills: 1 Allergies: Allergies Allergen Reactions ??? Lisinopril Anaphylaxis ??? Pcn [Penicillins] Anaphylaxis ??? Penicillin G Swelling Pended Medication Order: Requested Prescriptions Pending Prescriptions Disp Refills ??? gabapentin (NEURONTIN) 300 MG capsule 60 capsule 1 Sig: Take 1 (one) capsule by mouth 2 times daily Start with 1 tab let at bedtime for 1 week then take twice a day documented in this encounter Plan of Treatment Not on file documented as of this encounter Goals Goal Patient Goal Type Associated Problems Recent Progress Patient-Stated? Author Mobility General No Stephanie Gallegos RN Note: Expected end date: *10/30/2019 The goal is to maintain or improve your mobility at the optimum level for you. Interventions: documented as of this encounter Visit Diagnoses Diagnosis Chronic midline low back pain without sciatica documented in this encounter Care Teams Special Procedure Technologist Relationship Specialty Start Date End Date Ian Pollock MD [address] OF [facility] [place] [address] PCP - General 08/21/20 05/29/23 documented as of this encounter
--- OUTSIDE RECORDS SUMMARY | 2024-10-30 06:50 | XMS_ITS | Encounter Summary ---
Author Organization [facility] Address [address] [facility] [place] [address] Care Team Providers Care Director Social Name Role Phone Ian Pollock MD Primary Care Provider [phone] Reason for Visit * Reason Onset Date Comments MEDICATION REFILL 07/22/2021 Encounter Details Date Type Department Care Team (Late st Contact Info) Description 07/22/2021 Refill [facility] Internal Medicine [address] [place] [address], [facility] [place] [address] Ian Pollock MD [address] [place] [address] [place] [address] MEDICATION REFILL Social History Tobacco Use Types [...] sciatica documented in this encounter Care Teams Director Social Relationship Specialty Start Date End Date Ian Pollock MD [address] [place] [address] PCP - General 08/21/20 05/29/23 documented as of this encounter
--- OUTSIDE RECORDS SUMMARY | 2024-10-30 06:50 | XMS_ITS | Encounter Summary ---
Author Organization [facility] Address [address] [facility] [place] [address] Care Team Providers Care Roof Fixer Name Role Phone Ian Pollock MD Primary Care Provider [phone] Reason for Visit * Reason Comments Refill Request Encounter Details Date Type Department Care Team (Late st Contact Info) Description 12/16/2021 Refill [facility] [address] [place] [address] Agnieszka Haas MD [address] [place] [address] Refill Request Social History Tobacco Use Types [...] emphysema documented in this encounter Care Teams Roof Fixer Relationship Specialty Start Date End Date Ian Pollock MD [address] OF [facility] [place] [address] PCP - General 08/21/20 05/29/23 documented as of this encounter
--- OUTSIDE RECORDS SUMMARY | 2024-10-30 06:50 | XMS_ITS | Encounter Summary ---
Author Organization [facility] Address [address] [facility] [place] [address] Care Team Providers Care Lactation Specialist Name Role Phone Ian Pollock MD Primary Care Provider [phone] Reason for Visit * Reason Comments Refill Request Encounter Details Date Type Department Care Team (Late st Contact Info) Description 12/08/2021 Refill [facility] [address] [facility] [address] [place] [address] Sayed Torres Blankenship MD [address] [place] [address] [place] [address] Refill Request Social History Tobacco Use [...] on filedocumented in this encounter Care Teams Lactation Specialist Relationship Specialty Start Date End Date Ian Pollock MD [address] [place] [address] PCP - General 08/21/20 05/29/23 documented as of this encounter
--- OUTSIDE RECORDS SUMMARY | 2024-10-30 06:50 | XMS_ITS | Encounter Summary ---
Author Organization [facility] Address [address] [facility] [place] [address] Care Team Providers Care Script Developer Name Role Phone Ian Pollock MD Primary Care Provider [phone] Reason for Visit * Reason Onset Date Comments MEDICATION REFILL 06/16/2021 Encounter Details Date Type Department Care Team (Late st Contact Info) Description 06/16/2021 Refill [facility] [address] [place] [address], [facility] [place] [address] Ian Pollock MD [address] [place] [address] [place] [address] MEDICATION REFILL Social History Tobacco Use Types [...] Telephone Encounter - Ian Pollock MD - 06/16/2021 12:57 PM CDT He cancelled his follow up visit He has Ortho and Pain specialists outside of [facility] * Telephone Encounter - Kellie Hayes RN - 06/16/2021 10:17 AM CDT Refill Request Josafat Branch Umesh EDELMIRA: 10/08/20 NOV scheduled: 11/09/2021 LRF: 04/15/21 Qty Disp: 60 # of refills: 1 [...] sciatica documented in this encounter Care Teams Script Developer Relationship Specialty Start Date End Date Ian Pollock MD [address] [place] [address] PCP - General 08/21/20 05/29/23 documented as of this encounter
--- OUTSIDE RECORDS SUMMARY | 2024-10-30 06:50 | XMS_ITS | Encounter Summary ---
Author Organization [facility] Address [address] [place] [address] Care Team Providers Care Refining Engineer Name Role Phone Ian Pollock MD Primary Care Provider [phone] Reason for Visit * Reason Onset Date Comments Imaging 02/03/2021 Encounter Details Date Type Department Care Team (Late st Contact Info) Description 02/03/2021 Telephone [facility] Critical Care and Sleep Medicine [address] [facility] [place] [address] Kezia Hollis MD [address] [facility] 2L DIV OF PULMONARY/[place] [address] Imaging Social History Tobacco Use Types Packs/Day [...] * Telephone Encounter - Krystina Bernard - 02/03/2021 2:09 PM CDT , Patient does not qualify for a low dose CT because he does not have enough pack years. CT department wants to know if patient appt should be cancel or did you want to order another type of CT? [facility] [phone] documented in this encounter Plan of Treatment Not on file documented as of this encounter Goals Goal Patient Goal Type Associated Problems Recent Progress Patient-Stated? Author Mobility General No Stpehanie Gallegos RN Note: Expected end date: *10/30/2019 The goal is to maintain or improve your mobility at the optimum level for you. Interventions: documented as of this encounter Visit Diagnoses Not on filedocumented in this encounter Care Teams Refining Engineer Relationship Specialty Start Date End Date Ian Pollock MD [address] OF [facility] [place] [address] PCP - General 08/21/20 05/29/23 documented as of this encounter
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
--- OUTSIDE RECORDS SUMMARY | 2024-10-30 06:50 | XMS_ITS | Encounter Summary ---
Author Organization [facility] Address [address] [facility] [facility] [place] [address] Care Team Providers Care Payloader Operator Name Role Phone Ian Pollock MD Primary Care Provider Reason for Visit * Reason Comments Refill Request Encounter Details Date Type Department Care Team (Late st Contact Info) Description 09/07/2021 Refill [facility], [facility] Medicine [address] [place] [address] Agnieszka Haas MD [address] [place] [address] Refill Request Social History Tobacco Use Types [...] on filedocumented in this encounter Care Teams Payloader Operator Relationship Specialty Start Date End Date Ian Pollock MD [address] [place] [address] PCP - General 08/21/20 05/29/23 documented as of this encounter
--- OUTSIDE RECORDS SUMMARY | 2024-10-30 06:50 | XMS_ITS | Encounter Summary ---
Author Organization [facility] Address [address] [place] [address] Care Team Providers Care Bulk Fluids Handler Name Role Phone Ian Pollock MD Primary Care Provider [phone] Reason for Visit * Reason Onset Date Comments MEDICATION REFILL 09/14/2021 Encounter Details Date Type Department Care Team (Late st Contact Info) Description 09/14/2021 Refill [facility] Care [facility] Medicine [address] [place] [id number] Agnieszka Haas MD [address] [place] [id number] MEDICATION REFILL Social History Tobacco Use Types [...] Miscellaneous Notes * Telephone Encounter - Shari Kauffman, ALYX - 09/14/2021 3:30 PM CONTROL CHEMIST [facility] requests new RX for Symbicort. Must be brand name only per [employer]. New Rx sent. ROL CHEMIST documented in this encounter Plan of Treatment [...] Diagnosis Centrilobular emphysema (HCC)- Primary Other emphysema Cough documented in this encounter Care Teams Bulk Fluids Handler Relationship Specialty Start Date End Date Ian Pollock MD [address] [place] [address] PCP - General 08/21/20 05/29/23 documented as of this encounter
--- OUTSIDE RECORDS SUMMARY | 2024-10-30 06:50 | XMS_ITS | Encounter Summary ---
Author Organization [facility] Address [address] [facility] [place] [address] Care Team Providers Care Electrical Manufacturing Technician Name Role Phone Ian Pollock MD Primary Care Provider [phone] Encounter Details Date Type Department Care Team (Late st Contact Info) Description 10/28/2020 2:30 PM MISSION COMMANDER Video Visit [facility] Cardiology [address] [facility] [address] [place], [place] [id number] Sayed Torres Blankenship MD [address] [place] [phone] Coronary artery disease due to lipid rich plaque ; Acute on chronic systolic heart failure (HCC) Social History Tobacco Use Types Packs/Day [...] have Coronavirus / COVID-19? No / Unsure 09/29/2020 10:07 AM MISSION COMMANDER documented as of this encounter Functional Status [...] Yes 11/05/2015 documented as of this encounter Patient Instructions * Patient Instructions* Torres Mcgovern MD - 10/28/2020 4:04 PM MISSION COMMANDER Return to clinic in 3 months check blood work lipid panel Refill for lasix sent to [facility] ION COMMANDER documented in this encounter Progress Notes * Torres Mcgovern MD - 10/28/2020 3:28 PM CST Telemedicine Note Today's visit was conducted [...] on visit on date of encounter is: 40 minutes with 30 minutes spent in medical discussion ?? Josafat Calvo??is a 59 year old??with hx of tobacco use, HTN, COPD, combined heart failure with mid range EF 46% , grade II DD and MR Here for follow up ?? Since last visit patient reports improvement in his breathing , denies chest pain or palpitations C/w his medications Continues to smoke Assessment & Plan Josafat is a 60 year old male who has completed a telemedicine encounter regarding: ? Assessment/Plan: ? # Cardiomyopathy , EF recovered with medical therapy Etiology likely Mixed , ischemic and related to hypertension Hx of combined HF with mid range EF 46% , grade II diastolic dysfunction. EF recovered in recent echo - now Compensated , NYHA class II RECS: - ASA 81 and atorvastatin 40 QHS - smoking cessation - coreg 25 BID - not on ACEi/ARB due to reported hx of anaphylaxis to ACEi - return to clinic in 3 months - cardiac rehab - LDL ?? # Moderate non obstructive Coronary Artery Disease : - ASA 81 and atorvastatin 40 QHS - recheck lipid panel - smoking cessation ? Subjective No chief complaint on file. A comprehensive 10 system ROS was reviewed. Pertinent positives and negatives are included in HPI or PMH. The remainder of the 10 system ROS was negative. TTE 09/2019?? Left ventricular systolic function is [...] arterial systolic pressure is 29 mmHg. ? [facility] 06/17/2020: - Moderate 40-50% ostial stenosis of LCx. - Non obstructive coronary arteries. - Diffuse mild luminal disease. RECOMMENDATIONS AFTER DIAGNOSTIC CATHETERIZATION:? Medical management of nonobstructive CAD. Aggressive modification of atherosclerotic risk factors. Continue titration of medications for cardiomyopathy [facility] 06/2020: The left ventricle is moderately increased in size. Left ventricular systolic function is normal with an ejection fraction by Biplane Method of Discs of 70 %. Left ventricular segmental wall motion is normal. The left ventricular diastolic function is normal, consistent with normal left ventricle filling pressures. There is mild to moderate mitral regurgitation. Normal right ventricular systolic function. Torres Blankenship MD ION COMMANDER Associated attestation - John Nelson MD - 11/01/2020 8:18 AM MISSION COMMANDER I personally interviewed and evaluated the patient. Plan of care discussed with the fellow. I reviewed the fellow's note and concur with the findings, assessments and plans. I have no additions at this time. See fellow note for details. 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 ACEI anaphylaxis, will consider ARB therapy down the line versus other BP med. John Nelson MD, [facility] documented in this encounter Miscellaneous Notes * Addendum Note - Dasha Sibley RN - 11/16/2020 12:46 PM CSTAddended by: DASHA SIBLEY on: 11/16/2020 12:46 PM Modules accepted: Orders ION COMMANDER documented in this encounter Plan of Treatment Scheduled Orders Name Type Priority Associated Diagnoses Orde r Schedule LIPID PROFILE Lab Routine Coronary artery disease due to lipid rich plaque Acute on chronic systolic heart failure (HCC) Ordered: 11/16/2020 documented as of this encounter Goals Goal Patient Goal Type Associated Problems Recent Progress Patient-Stated? Author Mobility General No Stephanie Gallegos RN Note: Expected end date: *10/30/2019 The goal is to maintain or improve your mobility at the optimum level for you. Interventions: documented as of this encounter Visit Diagnoses Diagnosis Coronary artery disease due to lipid rich plaque- Primary Acute on chronic systolic heart failure (HCC) Acute on chronic systolic heart failure documented in this encounter Care Teams Electrical Manufacturing Technician Relationship Specialty Start Date End Date Ian Pollock MD [address] OF [facility] [place] [address] PCP - General 08/21/20 05/29/23 documented as of this encounter
--- OUTSIDE RECORDS SUMMARY | 2024-10-30 06:50 | XMS_ITS | Encounter Summary ---
Author Organization [facility] Address [address] [place] [address] Care Team Providers Care Three Dimensional Map Modeler Name Role Phone Ian Pollock MD Primary Care Provider [phone] Reason for Visit * Reason Onset Date Comments MEDICATION REFILL 10/27/2020 Encounter Details Date Type Department Care Team (Late st Contact Info) Description 10/27/2020 Refill [facility] Internal Medicine [address] [place] [address], [facility] [place] [phone] Ian Pollock MD [address] [place] [address] [place] [address] MEDICATION REFILL Social History Tobacco Use Types [...] COVID-19? 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 No 11/05/2015 Is person blind or have serious difficulty kathie arias? No 11/05/2015 Does person have serious dif ficulty walking/climbing stairs? No 11/05/2015 Does person have difficulty dressing/bathing? No 11/05/2015 Does person have difficulty doing errands alone? No 11/05/2015 Cognitive Status Response Date of Assessm ent Does person have difficulty concentrating/remembering/making decisions? Yes 11/05/2015 documented as of this encounter Miscellaneous Notes * Telephone Encounter - Radha Jones RN - 10/27/2020 10:44 AM ROLLER SKATE REPAIRER Spoke with pharmacy. Will send request to appropriate provider. ER SKATE REPAIRER * Telephone Encounter - Ian Pollock MD - 10/27/2020 8:57 AM CST Please call He gets this from his chute worker ER SKATE REPAIRER * Telephone Encounter - Liudmila Welch - 10/27/2020 8:53 AM CST Refill Request Josafat Calvo EDELMIRA: 10/08/2020 NOV due: 04/13/2021 Allergies: Allergies Allergen Reactions ??? Lisinopril Anaphylaxis ??? Pcn [Penicillins] Anaphylaxis ??? Penicillin G Swelling Pended Medication Order: Requested Prescriptions No prescriptions requested or ordered in this encounter ER SKATE REPAIRER documented in this encounter Plan of Treatment [...] on filedocumented in this encounter Care Teams Three Dimensional Map Modeler Relationship Specialty Start Date End Date Ian Pollock MD [address] [place] [address] PCP - General 08/21/20 05/29/23 documented as of this encounter
--- OUTSIDE RECORDS SUMMARY | 2024-10-30 06:50 | XMS_ITS | Encounter Summary ---
Author Organization [facility] Address [address] [facility] [place] [address] Care Team Providers Care Control Room Tender Name Role Phone Ian Pollock MD Primary Care Provider [phone] Reason for Visit * Reason Onset Date Comments Results 02/08/2021 Encounter Details Date Type Department Care Team ([facility] Contact Info) Description 02/08/2021 Telephone [facility] Internal Medicine [address] [place] [address], [place] [phone] Ian Pollock MD [address] [place] [address] [place] [address] Results Social History Tobacco Use Types Packs/Day [...] Telephone Encounter - Anya Conway RN - 02/08/2021 4:00 PM CDT Called the pt and left voicemail relaying message from the pcp: This test was ordered by Dr Potter and Dr Haas in Pulmonary. Given phone number for pulmonology to f/u about results. * Telephone Encounter - Ian Pollock MD - 02/08/2021 3:48 PM CDT Please call This test was ordered by Dr Potter and Dr Haas in Pulmonary. Please provide him with contact information for these physicians. I do not know why [facility] listed my name as ordering physician. * Telephone Encounter - Shari Flood RN - 02/08/2021 3:03 PM CDT States received message through 'codebender' over weekend with results of CT Scan and results state nosuspicious pulmonary nodules were seen and wanted to verify. Verified results seen in [facility] with him. Asked that provider call him at [phone] when available to discuss results further. Please advise. documented in this encounter Plan of Treatment [...] on filedocumented in this encounter Care Teams Control Room Tender Relationship Specialty Start Date End Date Ian Pollock MD [address] [place] [address] PCP - General 08/21/20 05/29/23 documented as of this encounter
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
--- OUTSIDE RECORDS SUMMARY | 2024-10-30 06:50 | XMS_ITS | Encounter Summary ---
Author Organization [facility] Address [address] [place] [address] Care Team Providers Care Mechanical Product Design Engineer Name Role Phone Ian Pollock MD Primary Care Provider [phone] Encounter Details Date Type Department Care Team (Latest Contact Info) Description 11/18/2020 Travel Social History Tobacco Use Types Packs/Day [...] COVID-19? Unable to assess 11/18/2020 1:41 PM CAP JEWEL PLATE ASSEMBLER documented as of this encounter Functional Status [...] on filedocumented in this encounter Care Teams Mechanical Product Design Engineer Relationship Specialty Start Date End Date Ian Pollock MD [address] [place] [address] PCP - General 08/21/20 05/29/23 documented as of this encounter
--- OUTSIDE RECORDS SUMMARY | 2024-10-30 06:50 | XMS_ITS | Encounter Summary ---
Author Organization [facility] Address [address] [place] [address] Care Team Providers Care Joint Special Operations Name Role Phone Ian Pollock MD Primary Care Provider Reason for Visit * Reason Onset Date Comments LABS ONLY 01/14/2022 Encounter Details Date Type Department Care Team ([facility] Contact Info) Description 01/14/2022 Telephone [facility] [address] [facility] [address] [place] [address] Maxine Stroud, RN LABS ONLY Social History Tobacco Use Types Packs/Day Years [...] Telephone Encounter - Maxine Stroud RN - 01/14/2022 9:02 AM CDT Patient called and left message wanting to know if he can get labs done at [facility]. Lab for D-Dimer currently ordered for [facility]. Changed to [facility] hospital lab. Returned call to patient, left detailed message stating that lab was changed from [facility] to [facility], asked that he return call with any questions. documented in this encounter Plan of Treatment Not on file documented as of this encounter Goals Goal Patient Goal Type Associated Problems Recent Progress Patient-Stated? Author Mobility General No Stephanie Gallegos RN Note: Expected end date: *10/30/2019 The goal is to maintain or improve your mobility at the optimum level for you. Interventions: documented as of this encounter Results * D-DIMER (01/17/2022 3:53 PM CDT) D-Dimer Quantitative 0.48 <=0.50 mcg/mL FEU 01/17/2022 5:14 PM CDT [facility] Comment: In the absence of [...] Lomas MD LAB - COAGULATION O RDERABLES [facility] [address] [place] [address] [phone] documented in this encounter Visit Diagnoses Diagnosis Arthralgia of left lower leg- Primary Pain in joint, lower leg documented in this encounter Care Teams Joint Special Operations Relationship Specialty Start Date End Date Ian Pollock MD [address] [place] [address] OF [facility] [place] [address] PCP - General 08/21/20 05/29/23 documented as of this encounter
--- OUTSIDE RECORDS SUMMARY | 2024-10-30 06:50 | XMS_ITS | Encounter Summary ---
Author Organization [facility] Address [address] [place] [address] Care Team Providers Care Alumni Secretary Name Role Phone Ian Pollock MD Primary Care Provider [phone] Reason for Visit * Reason Onset Date Comments Nicotine Dependence 06/01/2021 Encounter Details Date Type Department Care Team (Late st Contact Info) Description 06/01/2021 Telephone [facility] General Internal Medicine [address] [place] [address], [facility] [place] [phone] Ian Pollock MD [address] [place] [address] [place] [address] Nicotine Dependence Social History Tobacco Use Types Packs/Day Years [...] Telephone Encounter - Radha Jones RN - 06/09/2021 2:02 PM CDT Left VM requesting call back to discuss provider's message: Please call He should discuss this with his process specialist at his appointment next week. * Telephone Encounter - Ian Pollock MD - 06/09/2021 12:05 PM CDT Please call He should discuss this with his process specialist at his appointment next week. * Telephone Encounter - Anya Conway RN - 06/01/2021 3:34 PM CDT Pt calling stating that he would like to quit smoking and requesting pcp to order Nicorette gum to [facility] in [address] documented in this encounter Plan of Treatment [...] on filedocumented in this encounter Care Teams Alumni Secretary Relationship Specialty Start Date End Date Ian Pollock MD [address] [place] [address] PCP - General 08/21/20 05/29/23 documented as of this encounter
--- OUTSIDE RECORDS SUMMARY | 2024-10-30 06:50 | XMS_ITS | Encounter Summary ---
Author Organization [facility] Address [address] [place] [address] Care Team Providers Care Camp Head Counselor Name Role Phone Ian Pollock MD Primary Care Provider Reason for Visit * Reason Comments Refill Request Encounter Details Date Type Department Care Team (Late st Contact Info) Description 09/25/2021 Refill [facility] [address] [facility], [place] [address] Florence Ojeda, ARBITRATOR-RADIOLOGICAL METALLURGIST [address] [place] [address] [place] [phone] Refill Request Social History Tobacco Use Types [...] on filedocumented in this encounter Care Teams Camp Head Counselor Relationship Specialty Start Date End Date Ian Pollock MD [address] OF [facility] [place] [address] PCP - General 08/21/20 05/29/23 documented as of this encounter
--- OUTSIDE RECORDS SUMMARY | 2024-10-30 06:50 | XMS_ITS | Encounter Summary ---
Author Organization [facility] Address [address] [place] [address] Care Team Providers Care Housing Assistant Property Manager Name Role Phone Ian Pollock MD Primary Care Provider Encounter Details Date Type Department Care Team (Late st Contact Info) Description 01/22/2021 Orders Only [facility] - COVID Vaccine [address] [place] [address] Jase Sue MD [address] [place], [place] [id number] Need for vaccination Social History Tobacco Use Types Packs/Day Years [...] COVID-19? No / Unsure 12/28/2020 3:39 PM PRESCRIPTION CLERK documented as of this encounter Functional [...] as of this encounter Visit Diagnoses Diagnosis Need for vaccination Need for prophylactic vaccination and inoculation against unspecified single disease documented in this encounter Care Teams Housing Assistant Property Manager Relationship Specialty Start Date End Date Ian Pollock MD [address] [facility] [address] [facility] [place] [address] PCP - General 08/21/20 05/29/23 documented as of this encounter
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
--- OUTSIDE RECORDS SUMMARY | 2024-10-30 06:50 | XMS_ITS | Encounter Summary ---
Author Organization [facility] Address [address] [place] [address] Care Team Providers Care Fulling Mill Operator Name Role Phone Ian Pollock MD Primary Care Provider [phone] Reason for Visit * Reason Onset Date Comments MEDICATION REFILL 09/01/2021 Encounter Details Date Type Department Care Team (Late st Contact Info) Description 09/01/2021 Refill [facility] [address] [facility] [address] [place] [address] Sayed Torres Blankenship MD [address] [place] [address] [place] [address] MEDICATION REFILL Social History Tobacco Use [...] Recent Progress Patient-Stated? Author Mobility General No Stephnaie Gallegos, RN Note: Expected end date: *10/30/2019 The goal is to maintain or improve your mobility at the optimum level for you. Interventions: documented as of this encounter Visit Diagnoses Not on filedocumented in this encounter Care Teams Fulling Mill Operator Relationship Specialty Start Date End Date Ian Pollock MD [address] [place] [address] PCP - General 08/21/20 05/29/23 documented as of this encounter
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
--- OUTSIDE RECORDS SUMMARY | 2024-10-30 06:50 | XMS_ITS | Encounter Summary ---
Author Organization [facility] Address [address] [facility] [place] [address] Care Team Providers Care Roping Tender Name Role Phone Ian Pollock MD Primary Care Provider [phone] Reason for Visit * Reason Onset Date Comments Follow-up 12/29/2020 Encounter Details Date Type Department Care Team (Late st Contact Info) Description 12/29/2020 Telephone [facility] [address] [facility] [address] [place] [address] Elda Cantu RN Follow-up Social History Tobacco Use Types Packs/Day Years [...] COVID-19? No / Unsure 12/28/2020 3:39 PM WOOD LATHE OPERATOR documented as of this encounter Functional [...] Miscellaneous Notes * Telephone Encounter - Elda Cantu RN - 12/30/2020 9:26 AM WOOD LATHE OPERATOR Pt called to request lab orders be faxed to [facility] done LATHE OPERATOR documented in this encounter Plan of [...] Procedure Name Priority Date/Time Associated Diagnosis Comments BASIC METABOLIC PANEL (CALCIUM TOTAL) Routine 01/04/2021 1:18 PM WOOD LATHE OPERATOR Congestive heart failure, unspecified HF chronicity, unspecified heart failure type (HCC) LIPID PROFILE Routine 01/04/2021 1:18 PM WOOD LATHE OPERATOR Congestive heart failure, unspecified HF chronicity, unspecified heart failure type (HCC) documented in this encounter Results * BASIC METABOLIC PANEL (CALCIUM TOTAL) (01/04/2021 1:18 PM WOOD LATHE OPERATOR) [facility] Glucose 94 65 - 99 mg/dL [facility] Comment: ? Fasting reference interval BUN 9 7 - 25 mg/dL [facility] Creatinine 0.87 0.70 - 1.33 mg/dL [facility] Comment: For patients >49 years of age, the reference limit for Creatinine is approximately 13% higher for people identified as -Mauritanian. eGFR by MDRD 94 > OR = [...] 10.3 mg/dL [facility] Comment: Test Performed at: [facility] [address] [place], [place] ??[phone] PRUDENCIO ALDANA DO,MPH Blood BLOOD SPECIMEN / Unknown 01/04/2021 1:18 PM WOOD LATHE OPERATOR 01/04/2021 1:18 PM WOOD LATHE OPERATOR John Nelson MD LAB - CHEMISTRY ORD ERABLES [facility] [address] [place] [address] * LIPID PROFILE (01/04/2021 1:18 PM WOOD LATHE OPERATOR) Cholesterol 117 <200 mg/dL [facility] HDL Cholesterol 56 > OR = 40 mg/dL [facility] Triglycerides 73 <150 mg/dL [facility] LDL Calculated 46 mg/dL (calc) [facility] Comment: Reference range: <100 Desirable range <100 mg/dL for primary prevention; ?? <70 mg/dL for patients with CHD or diabetic patients with > or = 2 CHD risk factors. LDL-C is now calculated using the Luciano-Mendiola calculation, which is a validated novel method providing better accuracy than the Friedewald equation in the estimation of LDL-C. Luciano SS et al. LACEY. 2013;310(19): 2817-9157 (http://education.Datadecision.Traxer/faq/AJK877) CHOL/HDLC RATIO 2.1 <5.0 (calc) [facility] Non HDL Cholesterol 61 <130 mg/dL (calc) [facility] Comment: For patients with diabetes plus 1 major ASCVD risk factor, treating to a non-HDL-C goal of <100 mg/dL (LDL-C of <70 mg/dL) is considered a therapeutic option. Test Performed at: [facility] [address] [place], [place] ??[phone] PRUDENCIO ALDANA DO,MPH Blood BLOOD SPECIMEN / Unknown 01/04/2021 1:18 PM WOOD LATHE OPERATOR 01/04/2021 1:18 PM WOOD LATHE OPERATOR John Nelson MD LAB - CHEMISTRY ORD ERABLES [facility] [address] [place] [address] documented in this encounter Visit Diagnoses Diagnosis Congestive heart failure, unspecified HF chronicity, unspecified heart failure type (HCC)- Primary documented in this encounter Care Teams Roping Tender Relationship Specialty Start Date End Date Ian Pollock MD [address] OF [facility] [place] [address] PCP - General 08/21/20 05/29/23 documented as of this encounter
--- OUTSIDE RECORDS SUMMARY | 2024-10-30 06:50 | XMS_ITS | Encounter Summary ---
Author Organization [facility] Address [address] [place] [address] Care Team Providers Care Cable Spooler Name Role Phone Ian Pollock MD Primary Care Provider [phone] Reason for Visit * Reason Comments Refill Request Encounter Details Date Type Department Care Team (Late st Contact Info) Description 10/16/2021 Refill [facility] [address] [facility] [address] [place] [address] Sayed Torres Blankenship MD [address] [place] [address] [place] [id number] Refill Request Social History Tobacco Use [...] Telephone Encounter - Maxine Stroud RN - 10/18/2021 8:28 AM CST Received electronic refill request from [facility] pharmacy for furosemide. Last seen 07/28/2021 Sayed Torres Blankenship MD Plan: We are decreasing the coreg to 12.5 mg twice per day Stopping lasix Starting hydrochlorothiazide 25 mg once a day Nicotine patch for smoking cessation Has appt 10/27/21 Refusing prescription as this was stopped on 07/28/21 and changed to HCTZ Spoke with patient and he states that he is taking the HCTZ, not the lasix. States that he did not request a refill and that the pharmacy does that automatically. Informed him to call with any questions before upcoming appt IDE ENERGY SALES REPRESENTATIVES documented in this encounter Plan of Treatment [...] filedocumented in this encounter Care Teams Cable Spooler Relationship Specialty Start Date End Date Ian Pollock MD [address] [facility] [address] [facility] [place] [address] PCP - General 08/21/20 05/29/23 documented as of this encounter
--- OUTSIDE RECORDS SUMMARY | 2024-10-30 06:50 | XMS_ITS | Encounter Summary ---
Author Organization [facility] Address [address] [place] [address] Care Team Providers Care In Store Marketing Representative Name Role Phone Ian Pollock MD Primary Care Provider [phone] Reason for Visit * Reason Onset Date Comments Letter 02/23/2021 Encounter Details Date Type Department Care Team ([facility] Contact Info) Description 02/23/2021 Telephone [facility] General Internal Medicine [address] [place] [address], [place] [id number] Ian Pollock MD [address] [place] [address] [place] [address] Letter Social History Tobacco Use Types Packs/Day [...] Telephone Encounter - Aric Santamaria RN - 02/24/2021 9:33 AM CDT Outreach #1 Successful Shared the providers recommendation. Provider: Ian Pollock MD 17 hours ago (4:04 PM) TO Please call I do not have his social security number and if I had, I would be unable to disclose it to anyone. He should work with the Social Security office to replace his card. They have a procedure that mustbe followed. * Telephone Encounter - Ian Pollock MD - 02/23/2021 4:02 PM CDT Please call I do not have his social security number and if I had, I would be unable to disclose it to anyone. He should work with the Social Security office to replace his card. They have a procedure that mustbe followed. * Telephone Encounter - Aric Santamaria RN - 02/23/2021 3:38 PM CDT Pt called d/t having lost his social security card and requesting the provider write a letter so mikayla get another SS card statin-He is a patient. 2-Has has SSN on the letter And please have the letter mailed to the home address. Please advise on requested letter. documented in this encounter Plan of Treatment [...] on filedocumented in this encounter Care Teams In Store Marketing Representative Relationship Specialty Start Date End Date Ian Pollock MD [address] [place] [address] PCP - General 08/21/20 05/29/23 documented as of this encounter
--- OUTSIDE RECORDS SUMMARY | 2024-10-30 06:50 | XMS_ITS | Encounter Summary ---
Author Organization [facility] Address [address] [place] [address] Care Team Providers Care Parker Name Role Phone Ian Pollock MD Primary Care Provider [phone] Reason for Visit * Reason Onset Date Comments MEDICATION REFILL 07/27/2021 Encounter Details Date Type Department Care Team (Late st Contact Info) Description 07/27/2021 Refill [facility] General Internal Medicine [address] [place] [address], [facility] [place] [address] Ian Pollock MD [address] [place] [address] [place] [address] MEDICATION REFILL Social History Tobacco Use Types [...] encounter Miscellaneous Notes * Telephone Encounter - Kellie Hayes, RN - 07/27/2021 2:21 PM CDT Refill Request Josafat Calvo EDELMIRA: 10/08/20 NOV scheduled: 11/09/2021 LRF: 04/15/21 [...] sciatica documented in this encounter Care Teams Parker Relationship Specialty Start Date End Date Ian Pollock MD [address] [place] [address] PCP - General 08/21/20 05/29/23 documented as of this encounter
--- OUTSIDE RECORDS SUMMARY | 2024-10-30 06:50 | XMS_ITS | Encounter Summary ---
Author Organization [facility] Address [address] [facility] [place] [address] Care Team Providers Care Silo Tender Name Role Phone Ian Pollock MD Primary Care Provider Reason for Visit * Reason Onset Date Comments MEDICATION REFILL 12/22/2021 Encounter Details Date Type Department Care Team (Late st Contact Info) Description 12/22/2021 Refill [facility] Pulmonary, Critical Care and Sleep Medicine [address] [facility] [place] [phone] Agnieszka Haas MD [address] [id number] MEDICATION REFILL Social History Tobacco Use Types [...] * Telephone Encounter - Krystina Bernard - 12/22/2021 9:25 AM CST Refill Request Josafat Calvo EDELMIRA: Aug due: NOV scheduled: 01/05/22 LRF: Qty Disp: # of refills: Allergies: Allergies Allergen Reactions ??? Lisinopril Anaphylaxis ??? Pcn [Penicillins] Anaphylaxis ??? Penicillin G Swelling Pended Medication Order: Requested Prescriptions No prescriptions requested or ordered in this encounter CTOR OF SCOUT WORK documented in this encounter Plan of Treatment [...] on filedocumented in this encounter Care Teams Silo Tender Relationship Specialty Start Date End Date Ian Pollock MD [address] [facility] [address] [facility] [place] [address] PCP - General 08/21/20 05/29/23 documented as of this encounter
--- OUTSIDE RECORDS SUMMARY | 2024-10-30 06:50 | XMS_ITS | Encounter Summary ---
Author Organization [facility] Address [address] [facility] [place] [address] Care Team Providers Care Cat Hooker Name Role Phone Ian Pollock MD Primary Care Provider [phone] Reason for Visit * Reason Onset Date Comments MEDICATION REFILL 07/28/2021 Encounter Details Date Type Department Care Team (Late st Contact Info) Description 07/28/2021 Refill [facility] Cardiology [address] [address] [place] [address] John Nelson MD [address] [phone] [place] [address] MEDICATION REFILL Social History Tobacco Use Types [...] on filedocumented in this encounter Care Teams Cat Hooker Relationship Specialty Start Date End Date Ian Pollock MD [address] OF [facility] [place] [address] PCP - General 08/21/20 05/29/23 documented as of this encounter
--- OUTSIDE RECORDS SUMMARY | 2024-10-30 06:50 | XMS_ITS | Encounter Summary ---
Author Organization [facility] Address [address] [facility] [place] [address] Care Team Providers Care Telephone Order Dispatcher Name Role Phone Ian Pollock MD Primary Care Provider [phone] Reason for Visit * Reason Onset Date Comments MEDICATION REFILL 01/04/2021 Encounter Details Date Type Department Care Team (Late st Contact Info) Description 01/04/2021 Refill [facility] Internal Medicine [address] [place] [address], [facility] [place] [address] Ian Pollock MD [address] [place] [address] [place] [address] MEDICATION REFILL Social History Tobacco Use Types [...] COVID-19? No / Unsure 12/28/2020 3:39 PM ASSISTANT WAREHOUSE MANAGER documented as of this encounter Functional Status [...] Telephone Encounter - Ian Pollock MD - 01/04/2021 1:50 PM CST Not filled in [facility] Prescribed and monitored in Cardiology. Have pharmacy send prescription to that office. STANT WAREHOUSE MANAGER * Telephone Encounter - Samantha Pierson MA - 01/04/2021 12:51 PM CST Refill Request Josafat F Umesh EDELMIRA: 10-08-20 NOV scheduled: 04/13/2021 LRF: 08-11-20 Qty Disp: 90 # of refills: 3 Allergies: Allergies Allergen Reactions ??? Lisinopril Anaphylaxis ??? Pcn [Penicillins] Anaphylaxis ??? Penicillin G Swelling Pended Medication Order: Requested Prescriptions No prescriptions requested or ordered in this encounter STANT WAREHOUSE MANAGER documented in this encounter Plan of [...] on filedocumented in this encounter Care Teams Telephone Order Dispatcher Relationship Specialty Start Date End Date Ian Pollock MD [address] OF [facility] [place] [address] PCP - General 08/21/20 05/29/23 documented as of this encounter
--- OUTSIDE RECORDS SUMMARY | 2024-10-30 06:50 | XMS_ITS | Encounter Summary ---
Author Organization [facility] Address [address] [facility] [place] [address] Care Team Providers Care Senior Process Control Tech Name Role Phone Ian Pollock MD Primary Care Provider Encounter Details Date Type Department Care Team (Latest Contact Info) Description 12/21/2020 9:22 AM SOFTWARE RECRUITER - 12/21/2020 11:59 PM SOFTWARE RECRUITER Hospital Encounter [facility] [address] [place] [address] Tariq Recio MD [address] [facility] 2L DIV OF PULMONARY/[place] [address] Discharge Disposition: Home or Self Care Social [...] COVID-19? No / Unsure 12/21/2020 8:44 AM SOFTWARE RECRUITER documented as of this encounter Functional Status [...] eczema 60 g 1 10/08/2020 02/08/2021 Umeclidinium [place] (INCRUSE [place]TA [place]) 021 ziprasidone (GEODON) 20 [...] MAR Action Action Date Dose Rate Site methacholine challenge (PROVOCHOLINE) kit 1 kit 1 kit, Inhalation, ONCE, 1 dose, On Mon12/21/20 at 1030, Methacholine Challenge Kit to be administered per Protocol by a Extension Associate. Each Kit contains the following syringes: 16 mg/ml - 3 mL syringe 4 mg/ml - 3 mL syringe 1 mg/ml - 3 mL syringe 0.25 mg/ml - 3 mL syringe 0.0625 mg/ml - 3 mL syringe Fluid Syringe (no drug) - 3 mL syringe $ Given 12/21/2020 10:01 AM SOFTWARE RECRUITER 1 kit documented in this encounter Care Teams Senior Process Control Tech Relationship Specialty Start Date End Date Ian Pollock MD [address] [place] [address] PCP - General 08/21/20 05/29/23 documented as of this encounter
--- OUTSIDE RECORDS SUMMARY | 2024-10-30 06:50 | XMS_ITS | Encounter Summary ---
Author Organization [facility] Address [address] [place] [address] Care Team Providers Care Switchboard Receptionist Name Role Phone Ian Pollock MD Primary Care Provider [phone] Reason for Visit * Reason Comments Refill Request Encounter Details Date Type Department Care Team (Late st Contact Info) Description 09/06/2021 Refill [facility] [address] [facility] [address] [place] [address] Sayed Torres Blankenship MD [address] [place] [address] [place] [address] Refill Request Social History Tobacco Use [...] on filedocumented in this encounter Care Teams Switchboard Receptionist Relationship Specialty Start Date End Date Ian Pollock MD [address] [place] [address] PCP - General 08/21/20 05/29/23 documented as of this encounter
--- OUTSIDE RECORDS SUMMARY | 2024-10-30 06:50 | XMS_ITS | Encounter Summary ---
Author Organization [facility] Address [address] [facility] [place] [address] Care Team Providers Care Knock Up Assembler Name Role Phone Ian Pollock MD Primary Care Provider Katina Casiano DO Unavailable [phone] Xavi ACOSTA MD, Jameel R Primary Care Provider + Katina Casiano DO Unavailable [phone] Tracey Ang PA Unavailable [phone] STREETCAR-HUMAN SERVICE TECHNICIAN Primary Care Provider + Natalie Baum Primary Care Provider [phone] Reason for Visit * Reason Onset Date Comments Refill Request 04/13/2021 Encounter Details Date Type Department Care Team (Late st Contact Info) Description 04/13/2021 Telephone [facility] [address] [place] [address] Ian Pollock MD [address] [place] [address] Refill Request Social History Tobacco Use Types [...] encounter Miscellaneous Notes * Telephone Encounter - Nicole Sifuentes - 04/19/2021 4:38 PM CDT Patient has already been scheduled by scheduling * Telephone Encounter - Ian Pollock MD - 04/15/2021 4:59 PM CDT He cancelled his February appointment with me. Please schedule with Monday [facility] resident in 2-3 months as NDR * Telephone Encounter - Aric Santamaria RN - 04/15/2021 10:24 AM CDT Pt calling asking if the gabapentin could be filled MINNIE d/t having a lot of nerve pain in his hips. Please advise. Thank you. * Telephone Encounter - Shari Silvestre RN - 04/13/2021 3:50 PM CDT Pt calling in and states the nerves in his hips are bothering him. He would like refill of his gabapentin. Pt said he stopped taking the med for a while, but now he realizes the medication helped. Said he is getting shooting pains like needles up his side. Has done PT and has had Pain specialist. Thinks the gabapentin is helpful. Refill Request Josafat Calvo EDELMIRA: 10/08/20 NOV scheduled: 11/09/2021 LRF:10/08/20 Qty Disp: 60 # of refills: 1 [...] 1 week then take twice a day * Telephone Encounter - Anya Conway RN - 04/13/2021 10:46 AM CDT 1st attempt: Called the pt regarding the nerve pain and also the refill request for Guafenesin, which is not on the med list. Left a voicemail requesting the pt to call back in order to discuss the nerve pain and offer an appt with a resident on Dr. Pollock's team/ med refill request. * Telephone Encounter - Sunita Samuel - 04/13/2021 9:40 AM CDT Current Provider name:Dr. Pollock Reason for call: Pt had to reschedule his appt for today due to an emergency w/ his granddaughter, he doesn't feel he can wait until 11/09/2021 to see you, he said he is overall doing well, but his nerve pain is bad. He is requesting for his guaifenesin to be refilled. Patient Call Back number: [phone] documented in this encounter Plan of Treatment [...] sciatica documented in this encounter Care Teams Knock Up Assembler Relationship Specialty Start Date End Date Ian Pollock MD [address] OF [facility] [place] [address] PCP - General 08/21/20 05/29/23 Jameel Hurley III, MD [address] [facility] [place] [address] PCP - General Internal Medicine 06/05/23 08/28/23 Belkis Angel APRN-HUMAN SERVICE TECHNICIAN [address] [facility] 2nd [place] [address] PCP - General Nurse Practitioner 08/29/23 05/05/24 Natalie Baum [address] [place] [address] PCP - General 05/06/24 Katina Casiano DO [address] [facility] INTERNAL [place], [place] Resident - PCP Internal Medicine 08/10/22 05/29/23 Katina Casiano DO [address] [facility] INTERNAL [place], [place] Hospitalist 06/05/23 Tracey Ang PA [address] [facility] [address] [place] [address] Physician Auto Overhauler 08/15/23 documented as of this encounter
--- OUTSIDE RECORDS SUMMARY | 2024-10-30 06:51 | XMS_ITS | Encounter Summary ---
Author Organization [facility] Address [address] [facility] [place] [address] Care Team Providers Care Design Studio Consultant Name Role Phone Ian Pollock MD Primary Care Provider [phone] Reason for Visit * Reason Onset Date Comments MEDICATION REFILL 03/10/2020 Encounter Details Date Type Department Care Team (Late st Contact Info) Description 03/10/2020 Refill [facility] General Internal Medicine [address] [facility] [address] [place] [address] Ian Pollock MD [address] OF [facility] [place] [place] [address] MEDICATION REFILL Social History Tobacco Use Types Packs/Day Years Used Date Smoking Tobacco: Every Day Cigarettes 0.3 25 Smokeless Tobacco: Never Comments:Smoked for 30 years . Alcohol Use Standard Drinks/Week Comments Yes 6 [...] have Coronavirus / COVID-19? Unable to assess 03/09/2020 4:05 PM CDT documented as of this encounter [...] Telephone Encounter - Anya Conway RN - 03/10/2020 2:14 PM CDT Pt calling requesting his omeprazole 40mg po qday to be refilled. Pt states he has been out of thismedication for months and has now started having acid reflux/indigestion problems and needs a refill. Refill Request Josafat Calvo EDELMIRA: 12-19-19Aug due: 6month f/u NOV scheduled: transferred to scheduling to set up f/u Allergies: Allergies Allergen Reactions ??? Lisinopril Anaphylaxis ??? Pcn [Penicillins] Anaphylaxis ??? Penicillin G Swelling Pended Medication Order: Requested Prescriptions Pending Prescriptions Disp Refills ??? omeprazole (PRILOSEC) 40 MG capsule 5 Si capsule daily before breakfast documented in this encounter Plan of Treatment [...] on filedocumented in this encounter Care Teams Design Studio Consultant Relationship Specialty Start Date End Date Ian Pollock MD PCP - General 12/13/19 05/25/20 documented as of this encounter
--- OUTSIDE RECORDS SUMMARY | 2024-10-30 06:51 | XMS_ITS | Encounter Summary ---
Author Organization [facility] Address [address] [facility] [place] [address] Care Team Providers Care Ergonomics Consultant Name Role Phone Ian Pollock MD Primary Care Provider Reason for Visit * Reason Comments Refill Request Encounter Details Date Type Department Care Team (Late st Contact Info) Description 09/09/2020 Refill [facility] Pul[facility], Critical Care and Sleep Medicine [address] [place] [address] Agnieszka Haas MD [address] [place] [address] Refill Request Social History Tobacco Use Types Packs/Day Years Used Date Smoking Tobacco: Every Day Cigarettes 0.3 25 Smokeless Tobacco: Never Comments:Smoked for 30 years . /6 a day Alcohol Use Standard Drinks/Week Comments Yes 6 [...] Telephone Encounter - Agnieszka Haas MD - 09/09/2020 4:29 PM CST Patient has cancelled his appointments with our clinic. GRATED LOGISTICS PROGRAMS DIRECTOR documented in this encounter Plan of Treatment [...] on filedocumented in this encounter Care Teams Ergonomics Consultant Relationship Specialty Start Date End Date Ian Pollock MD [address] [place] [address] PCP - General 08/21/20 05/29/23 documented as of this encounter
--- OUTSIDE RECORDS SUMMARY | 2024-10-30 06:51 | XMS_ITS | Encounter Summary ---
Author Organization [facility] Address [address] [facility] [place] [address] Care Team Providers Care Sales Enablement Manager Name Role Phone Ian Pollock MD Primary Care Provider [phone] Encounter Details Date Type Department Care Team (Late st Contact Info) Description 10/13/2020 Orders Only [facility] Cardiology [address] [facility] [address] [place] [address] Elda Cantu RN Social History Tobacco Use Types Packs/Day [...] COVID-19? No / Unsure 09/29/2020 10:07 AM DONOR SUPPORT TECHNICIAN documented as of this encounter Functional Status [...] of this encounter Progress Notes * Elda Cantu RN - 10/13/2020 12:29 PM CST Pt called for refill on spirolactone 50 mg and carvedilol 25 mg BID-verified per last office notes 06/24/2020 and with pt R SUPPORT TECHNICIAN documented in this encounter Plan of Treatment [...] on filedocumented in this encounter Care Teams Sales Enablement Manager Relationship Specialty Start Date End Date Ian Pollock MD [address] [place] [address] PCP - General 08/21/20 05/29/23 documented as of this encounter
--- OUTSIDE RECORDS SUMMARY | 2024-10-30 06:51 | XMS_ITS | Encounter Summary ---
Author Organization [facility] Address [address] [facility] [place] [address] Care Team Providers Care Landscape Laborer Name Role Phone Ian Pollock MD Primary Care Provider [phone] Reason for Visit * Reason Onset Date Comments Follow-up 05/08/2020 Encounter Details Date Type Department Care Team (Late st Contact Info) Description 05/08/2020 Telephone [facility] Pulmonary, Critical Care and Sleep Medicine [address] [place] [address] Agnieszka Haas MD [address] [place] [address] Follow-up Social History Tobacco Use Types Packs/Day [...] encounter Miscellaneous Notes * Telephone Encounter - Deana Garcia LPN - 05/08/2020 11:10 AM CDT Called pt back at Dr Collins request, no answer lft message to Call back. documented in this encounter Plan of Treatment [...] on filedocumented in this encounter Care Teams Landscape Laborer Relationship Specialty Start Date End Date Ian Pollock MD PCP - General 12/13/19 05/25/20 documented as of this encounter
--- OUTSIDE RECORDS SUMMARY | 2024-10-30 06:51 | XMS_ITS | Encounter Summary ---
Author Organization [facility] Address [address] [place] [address] Care Team Providers Care Rag Cutting Machine Feeder Name Role Phone Ian Pollock MD Primary Care Provider Encounter Details Date Type Department Care Team (Late st Contact Info) Description 04/27/2020 9:22 AM CDT - 04/27/2020 9:46 AM CDT Hospital Encounter [facility]ST[facility] [address] [facility] [place] [address] April Mora MD [address] [facility] [place] [address] Discharge Disposition: Home or Self Care Social [...] Sig Dispensed Refills Start Date End Date acetaminophen-codeine (TYLENOL #3) 300-30 MG tablet TK 1 T PO TID PRN 02/19/2020 10/08/2020 albuterol HFA (PROVENTIL;VENTOLIN;WA OAIR) 108 (90 Base) MCG/ACT inhaler Inhale 2 puffs by mouth every 4 hours as needed for Wheezing 1 Inhaler 6 10/17/2019 05/08/2020 amLODIPine (NORVASC) 10 MG tablet Take 1 tablet by mouth once daily 90 tablet 01/28/2020 02/08/2021 budesonide-formoterol (SYMBICORT) 160-4.5 MCG/ACT inhalerIndications:Cou gh Inhale 2 puffs by mouth 2 times daily 3 Inhaler 3 04/06/2020 09/10/2020 carvedilol (COREG) 25 MG tablet Take 1 tablet by mouth 2 times daily 60 tablet 2 01/28/2020 10/13/2020 dextromethorphan (ROBITUSSION MAXIMUM STRENGTH) 15 MG/5ML syrup Take 5 mL by mouth every 4 hours as needed for Cough 118 mL 04/14/2020 09/16/2020 fluticasone propionate (FLONASE) 50 MCG/ACT nasal spray Stirum 2 sprays into each nostril once daily 16 g 04/21/2020 05/18/2020 furosemide (LASIX) 20 MG tablet Take 1 tablet by mouth once daily 30 tablet 04/21/2020 05/18/2020 gabapentin (NEURONTIN) 300 MG capsule 10/07/2019 10/08/2020 hydrOXYzine pamoate (VISTARIL) 50 MG capsule Take 50 mg by mouth 10/08/20 ibuprofen (MOTRIN) 600 MG tablet Take 1 tablet by mouth every 8 hours as needed for Pain 90 tablet 3 07/11/2019 10/08/2020 lamoTRIgine (LAMICTAL) 25 MG tablet TK 2 TS PO BID 2019 09/29/2020 latanoprost (XALATAN) 0.005 % ophthalmic solution 01/25/2019 01/19/2022 meloxicam (MOBIC) 7.5 MG tablet 03/11/2019 06/17/2020 montelukast (SINGULAIR) 10 MG tablet Take 1 tablet by mouth once daily 90 tablet 4 04/21/2020 02/08/2021 nicotine (NICODERM CQ) 7 MG/24HR patchIndications:Tobac co use disorder Apply 1 patch to skin once daily 30 patch 6 12/10/2019 10/08/2020 omeprazole (PRILOSEC) 20 MG capsule Take 1 capsule by mouth once daily 90 capsule 4 04/21/2020 02/08/2021 Pseudoephedrine-Guaife nesin (MUCINEX D PO) 022 raNITIdine (ZANTAC) 300 MG tablet 01/25/2019 10/08/2020 spironolactone (ALDACTONE) 50 MG tablet Take 1 tablet by mouth once daily 30 tablet 2 01/28/2020 10/13/2020 sucralfate (CARAFATE) 1 GM tablet TK 1 T PO QID ON AN EMPTY STOMACH 30 MIN TO 1 H BEFORE MEALS AND AT BEDTIME 04/24/2020 01/19/2022 tamsulosin (FLOMAX) 0.4 MG capsule TAKE 1 CAPSULE(0.4 MG) BY MOUTH DAILY 10/24/2019 09/29/2020 triamcinolone acetonide (KENALOG) 0.1 % cream Apply to affected area 2 times daily Apply to arms BID prn eczema 60 g 1 11/05/2019 10/08/2020 Umeclidinium [place] (INCRUSE ELLIPTA IN) 021 ziprasidone (GEODON) 20 MG capsule TK 1 C PO HS 10/09/2019 01/19/2022 documented as of this encounter Plan of [...] XR LUMBAR SPINE 2 OR 3VW Routine 04/27/2020 9:40 AM CDT Low back pain, unspecified back pain laterality, unspecified chronicity, unspecified whether sciatica present documented in this encounter Results * XR LUMBAR SPINE 2 OR 3VW (04/27/2020 9:40 AM CDT) Anatomical Region Laterality Modality Spine Radiographic Joann ging 04/27/2020 11:5 6 AM CDT Impressions 04/27/2020 1:01 PM CDT Impression: Degenerative changes, greatest at L5-S1. Report dictated by Fabrizio Aparicio M.D. (surgeon/president). Dr. BOOKER Duong MD have personally reviewed and interpreted this examination/study. This report was electronically signed by BOOKER DEE MD ??on 04/27/2020 1:01 PM . Narrative 04/27/2020 1:01 PM CDT Exam: XR LUMBAR SPINE 2 views Comparison: Entire spine radiographs 11/04/2019, MRI lumbar spine 11/29/2019 History: Back pain Findings: There is grade 1 anterolisthesis at L3-4 and L4-5 and grade 1 retrolisthesis at L5-S1. There is moderate to severe degenerative disc disease at L5-S1, mild to moderate involvement at L4-5, mild involvement at L3-4. There is facet degeneration. No fracture is seen. Procedure Note Booker Dee MD - 04/27/2020 Exam: XR LUMBAR SPINE 2 views Comparison: Entire spine radiographs 11/04/2019, MRI lumbar spine11/29/2019 History: Back pain Findings: There is grade 1 anterolisthesis at L3-4 and L4-5 and grade 1 retrolisthesis at L5-S1. There is moderate to severe degenerative disc disease at L5-S1, mild to moderate involvement at L4-5, mild involvement at L3-4. There is facet degeneration. No fracture is seen. Impression: Degenerative changes, greatest at L5-S1. Report dictated by Fabrizio Aparicio M.D. (surgeon/president). Dr. BOOKER Duong MD have personally reviewed and interpreted this examination/study. This report was electronically signed by BOOKER DEE MD on04/27/2020 1:01 PM . April Mora MD DIAGNOSTIC IMAGING O [facility] documented in this encounter Visit Diagnoses Diagnosis Low back pain, unspecified back pain laterality, unspecified chronicity, unspecified whether sciatica present documented in this encounter Care Teams Rag Cutting Machine Feeder Relationship Specialty Start Date End Date Ian Pollock MD PCP - General 12/13/19 05/25/20 documented as of this encounter
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
--- OUTSIDE RECORDS SUMMARY | 2024-10-30 06:51 | XMS_ITS | Encounter Summary ---
Author Organization [facility] Address [address] [place] [address] Care Team Providers Care Security System Analyst Name Role Phone Unavailable Primary Care Provider Unavailabl e Encounter Details Date Type Department Care Team (Latest Contact Info) Description 07/03/2020 Travel Social History Tobacco Use Types Packs/Day [...] have Coronavirus / COVID-19? Unable to assess 07/03/2020 11:29 AM CDT documented as of this encounter [...]
--- OUTSIDE RECORDS SUMMARY | 2024-10-30 06:51 | XMS_ITS | Encounter Summary ---
Author Organization [facility] Address [address] [place] [address] Care Team Providers Care Hadoop Architect Name Role Phone Ian Pollock MD Primary Care Provider [phone] Encounter Details Date Type Department Care Team (Late st Contact Info) Description 05/13/2020 Orders Only [facility] [address] [facility] [address] [place] [address] Sayed Torres Blankenship MD [address] [place] [address] [place] [address] Acute on chronic systolic heart failure (HCC) [...] Procedure Name Priority Date/Time Associated Diagnosis Comments CCL CARDIAC CATH LEFT Routine 06/17/2020 10:06 AM CDT Acute on chronic systolic heart failure (HCC) documented in this encounter Results * CCL CARDIAC CATH LEFT (06/17/2020 10:06 AM CDT) Anatomical Region Laterality Modality Chest X-Ray Angiograph y Narrative 07/03/2020 11:26 AM CDT [facility] Cardiac Catheterization Procedure Note Patient: Josafat Calvo Age: [age] year old Date of : 1960 Date of Admission: 06/17/2020 Procedure Date: 06/17/20 FELLOW / CONCRETE MIXER TRUCK DRIVER: Elpidio Quigley MD ATTENDING PHYSICIAN: Mikey Donovan [...] evaluation, please review the evaluation forms in [facility]. For details on monitored clinical parameters during the intra-service sedation time, please review the procedure nurse documentation in [facility] and [facility]. Total sedation administered as follows: ?? 50 mcg IV fentanyl, 0.5 mg IV midazolam. 3 ml of 1% lidocaine was administered subcutaneously at the access site. TOTAL CONTRAST USED (Isovue 370): 35 ml RADIATION: ?? AK: 409.15 mGy ?? DAP: 22541 mGycm2 HEMODYNAMIC FINDINGS: ?? - LVEDP 15 [...] Mikey Donovan MD Torres Blankenship MD CARDIAC PROCESS MECHANIC RAD IANT documented in this encounter Visit Diagnoses Diagnosis Acute on chronic systolic heart failure (HCC) Acute on chronic systolic heart failure Essential hypertension- Primary documented in this encounter Care Teams Hadoop Architect Relationship Specialty Start Date End Date Ian Pollock MD PCP - General 12/13/19 05/25/20 documented as of this encounter
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
--- OUTSIDE RECORDS SUMMARY | 2024-10-30 06:51 | XMS_ITS | Encounter Summary ---
Author Organization [facility] Address [address] [place] [address] Care Team Providers Care Online Health And Fitness Coach Name Role Phone Ian Pollock MD Primary Care Provider [phone] Encounter Details Date Type Department Care Team (Latest Contact Info) Description 09/29/2020 10:10 AM SUPPORT COORDINATOR - 09/29/2020 11:59 PM SUPPORT COORDINATOR Hospital Encounter [facility] OP DRAW STATION [address] [place] [id number] Florence Ojeda M, WORKFORCE ANALYST-BOTTOM LIQUOR ATTENDANT [address] [facility] [address] [facility] [place] [id number] Discharge Disposition: Home or Self Care Social [...] COVID-19? No / Unsure 09/29/2020 10:07 AM SUPPORT COORDINATOR documented as of this encounter Functional Status [...] Date lamoTRIgine (LAMICTAL) 100 MG tablet 09/14/2020 acetaminophen-codeine (TYLENOL #3) 300-30 MG tablet TK 1 T PO TID PRN 02/19/2020 10/08/2020 albuterol HFA (PROVENTIL;VENTOLIN;P ROAIR) 108 (90 Base) [...] hours as needed for Cough 118 mL 09/16/2020 10/08/2020 fluticasone propionate (FLONASE) 50 MCG/ACT nasal spray SHAKE LIQUID AND USE 2 SPRAYS IN EACH NOSTRIL EVERY DAY 16 g 11 09/30/2020 12/14/2022 furosemide (LASIX) 20 MG tablet TAKE 1 TABLET BY MOUTH EVERY DAY 30 tablet 07/17/2020 10/28/2020 gabapentin (NEURONTIN) 300 MG capsule 10/07/2019 10/08/2020 hydrOXYzine pamoate (VISTARIL) 50 MG capsule Take 50 mg by mouth 10/08/20 ibuprofen (MOTRIN) 600 MG tablet Take 1 tablet by mouth every 8 hours as needed for Pain 90 tablet 3 07/11/2019 10/08/2020 latanoprost (XALATAN) 0.005 % ophthalmic solution 01/25/2019 01/19/2022 montelukast (SINGULAIR) 10 MG tablet Take 1 tablet by mouth once daily 90 tablet 4 04/21/2020 02/08/2021 nicotine (NICODERM CQ) 7 MG/24HR patchIndications:[employer] customer account technician use disorder Apply 1 patch to skin once daily 30 patch 6 12/10/2019 10/08/2020 omeprazole (PRILOSEC) 20 MG capsule Take 1 capsule by mouth once daily 90 capsule 4 04/21/2020 02/08/2021 polyethylene glycol (NULYTELY) 420 g solution TK UTD BY OFFICE 04/28/2020 10/08/2020 pregabalin (LYRICA) 150 MG capsule TK 1 C PO BID 04/29/2020 10/08/2020 Pseudoephedrine-Guaif enesin (MUCINEX D PO) 2021 raNITIdine (ZANTAC) 300 MG tablet 01/25/2019 10/08/2020 sildenafil (VIAGRA) 100 MG tabletIndications:Ere ctile Dysfunction [...] BEFORE MEALS AND AT BEDTIME 04/24/2020 01/19/2022 triamcinolone acetonide (KENALOG) 0.1 % cream Apply to affected area 2 times daily Apply to arms BID prn eczema 60 g 1 11/05/2019 10/08/2020 Umeclidinium [place] (INCRUSE ELLIPTA IN) 021 ziprasidone (GEODON) 20 [...] Procedure Name Priority Date/Time Associated Diagnosis Comments PSA SERIAL Routine 09/29/2020 10:23 AM SUPPORT COORDINATOR Benign localized prostatic hyperplasia with lower urinary tract symptoms (LUTS) documented in this encounter Results * PSA SERIAL (09/29/2020 10:23 AM SUPPORT COORDINATOR) PSA Total 2.2 0.0 - 4.0 ng/mL 09/29/2020 11:46 AM SUPPORT COORDINATOR [facility] Blood BLOOD SPECIMEN / Unknown Lab Venipuncture / Unknown 09/29/2020 10:23 AM SUPPORT COORDINATOR 09/29/2020 11:01 AM SUPPORT COORDINATOR Florence Ojeda WORKFORCE ANALYST-BOTTOM LIQUOR ATTENDANT LAB - SENIOR PLANNING MANAGER RY ORDERABLES Performing Organization Address City/State/[facility] Co de Phone Number [facility] [address] [place] [address], [facility] [phone] documented in this encounter Visit Diagnoses Diagnosis Benign localized prostatic hyperplasia with lower urinary tract symptoms (LUTS) Benign localized hyperplasia of prostate with urinary obstruction and other lower urinary tract symptoms (LUTS) documented in this encounter Care Teams Online Health And Fitness Coach Relationship Specialty Start Date End Date Ian Pollock MD [address] OF [place] [address] PCP - General 08/21/20 05/29/23 documented as of this encounter
--- OUTSIDE RECORDS SUMMARY | 2024-10-30 06:51 | XMS_ITS | Encounter Summary ---
Author Organization [facility] Address [address] [facility] [place] [address] Care Team Providers Care Crystalizer Tender Name Role Phone Ian Pollock MD Primary Care Provider [phone] Reason for Visit * Reason Onset Date Comments Concerns 09/10/2020 Encounter Details Date Type Department Care Team (Late st Contact Info) Description 09/10/2020 Telephone [facility] Pul[facility], Critical Care [facility] Medicine [address] [place] [id number] Agnieszka Haas MD [address] [place] [address] Concerns Social History Tobacco Use Types Packs/Day Years [...] * Telephone Encounter - Krystina Bernard - 09/10/2020 1:06 PM CST Called patient back. He reports having cough productive of white sputum, denies fever. He is havingto use albuterol multiple times a day. He feels that his symptoms are similar to prior episodes which improved with prednisone. Advised him that I would recommend testing for COVID-19 infection. Patient is reluctant to come to the hospital for testing in view of long waiting times and risk of exposure. He is agreeable to go to the closest ER/UC for testing. He is also requesting refill on his symbicort. - Will send him a prescription for prednisone 40 mg for 5 days , refill for symbicort. - He plans to get tested for COVID-19 infection at the nearest ED/UC. - Tobacco cessation counseling given. Agnieszka Haas MD Pulmonary / Critical Care Fellow Division of Pulmonary, Critical Care, & Sleep Medicine [facility] Beeper #:[phone] , Patient called in requesting prednisone, he c/o shortness of breath for four days now. He states that he does not want to go to the ER because of Covid. He is coughing greenish white mucus for four days. He states that he has these episodes once every six months and does not need to go to the ER, after I directed him to go to the ER for breathing issues. If you could please call this patient at [phone] N CONTRACT REPRESENTATIVE documented in this encounter Plan of Treatment Not on file documented as of this encounter Goals Goal Patient Goal Type Associated Problems Recent Progress Patient-Stated? Author Mobility General No Stephanie Gallegos, ALYX Note: Expected end date: *10/30/2019 The goal is to maintain or improve your mobility at the optimum level for you. Interventions: documented as of this encounter Visit Diagnoses Diagnosis Cough documented in this encounter Care Teams Crystalizer Tender Relationship Specialty Start Date End Date Ian Pollock MD [address] OF [facility] [place] [address] PCP - General 08/21/20 05/29/23 documented as of this encounter
--- OUTSIDE RECORDS SUMMARY | 2024-10-30 06:51 | XMS_ITS | Encounter Summary ---
Author Organization [facility] Address [address] [facility] [place] [address] Care Team Providers Care Proofreader Name Role Phone Ian Pollock MD Primary Care Provider [phone] Encounter Details Date Type Department Care Team (Latest Contact Info) Description 09/29/2020 Travel Social History Tobacco Use Types Packs/Day [...] COVID-19? 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
--- OUTSIDE RECORDS SUMMARY | 2024-10-30 06:51 | XMS_ITS | Encounter Summary ---
Author Organization [facility] Address [address] [facility] [place] [address] Care Team Providers Care Solution Professional Name Role Phone Ian Pollock MD Primary Care Provider [phone] Encounter Details Date Type Department Care Team (Latest Contact Info) Description 01/17/2020 Travel Social History Tobacco Use Types Packs/Day [...] on filedocumented in this encounter Care Teams Solution Professional Relationship Specialty Start Date End Date Ian Pollock MD PCP - General 12/13/19 05/25/20 documented as of this encounter
--- OUTSIDE RECORDS SUMMARY | 2024-10-30 06:51 | XMS_ITS | Encounter Summary ---
Author Organization [facility] Address [address] [facility] [place] [address] Care Team Providers Care Foster Winder Name Role Phone Ian Pollock MD Primary Care Provider Reason for Referral * Radiology Services (Routine) - Closed Specialty Diagnoses / Procedures Referred By Contac t Referred To Contact Interventional Radiology Diagnoses Low back pain, unspecified back pain laterality, unspecified chronicity, unspecified whether sciatica present Procedures IR NERVE BLOCK L OR S April Carbajal MD [address] [facility] [place] [address] [facility] Ivr [address] [place] [address] Referral ID Status Reason Start Date Expiration Date Visits Re quested Visits Authorized [id number] Closed 10/12/2020 04/10/2021 1 1 H BREAKER MACHINE OPERATOR Encounter Details Date Type Department Care Team (Late st Contact Info) Description 09/29/2020 Orders Only [facility] [address] [facility] [place] [address] Arely Soares, GLOBAL COMPENSATION MANAGER-MANAGER BALANCE [address] [facility] [place] [address] Low back pain, unspecified back pain laterality, unspecified chronicity, unspecified whether sciatica present Social History Tobacco Use Types Packs/Day Years [...] COVID-19? 

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
--- OUTSIDE RECORDS SUMMARY | 2024-10-30 06:51 | XMS_ITS | Encounter Summary ---
Author Organization [facility] Address [address] [place] [address] Care Team Providers Care Coordinator Volunteer Services Name Role Phone Ian Pollock MD Primary Care Provider [phone] Reason for Visit * Reason Onset Date Comments Follow-up 05/13/2020 Encounter Details Date Type Department Care Team ([facility] Contact Info) Description 05/13/2020 Telephone [facility] Cardiology [address] [facility] [address] [place] [address] Elda Cantu RN Follow-up Social History Tobacco [...] have Coronavirus / COVID-19? Unable to assess 05/22/2020 11:43 AM CDT documented as of this encounter [...] Telephone Encounter - Elda Cantu RN - 05/25/2020 1:35 PM CDT 06/01/2020 8:00 AM (Arrive by 7:00 AM) [facility] [address] [facility] Cardiac Break Out Man * Telephone Encounter - Elda Cantu RN - 05/13/2020 3:34 PM CDT Reviewed instructions for cardiac cath procedure. *NPO after MN * The morning of the procedure take morning medications with small sip of water. No diuretics morning of procedure You will need a log truck driver as you will not be able to drive home after procedure, becaseu of the sedation you will received during procedure. Bring overnight bag in the event your are admitted to hospital after procedure (stent/angioplasty) Park in the parking garage across from the hospital Please bring your parking ticket with you and the staff will validate it for you. Enter the hospital through the main hospital doors, you will see the information desk. Take the escalator to the left to the 2nd floor register @ admitting desk. Please call for any questions- cardiac laboratory inspector @ [facility] to call and schedule Called and left message for Eileen in cardiac laboratory inspector-please call pt and schedule cath-he is expecting your call Needs labs am of procedure. documented in this encounter Plan of Treatment [...] on filedocumented in this encounter Care Teams Coordinator Volunteer Services Relationship Specialty Start Date End Date Ian Pollock MD PCP - General 12/13/19 05/25/20 documented as of this encounter
--- OUTSIDE RECORDS SUMMARY | 2024-10-30 06:51 | XMS_ITS | Encounter Summary ---
Author Organization [facility] Address [address] [place] [address] Care Team Providers Care Golf Course Designer Name Role Phone Ian Pollock MD Primary Care Provider [phone] Encounter Details Date Type Department Care Team (Late st Contact Info) Description 04/29/2020 Orders Only [facility] Pulmonary, Critical Care and Sleep Medicine [address] [place] [address] Agnieszka Haas MD [address] [place] [address] Dyspnea on exertion Social History Tobacco Use Types Packs/Day Years [...] as of this encounter Visit Diagnoses Diagnosis Dyspnea on exertion Other dyspnea and respiratory abnormality documented in this encounter Care Teams Golf Course Designer Relationship Specialty Start Date End Date Ian Pollock MD PCP - General 12/13/19 05/25/20 documented as of this encounter
--- OUTSIDE RECORDS SUMMARY | 2024-10-30 06:51 | XMS_ITS | Encounter Summary ---
Author Organization [facility] Address [address] [facility] [place] [address] Care Team Providers Care Art Coordinator Name Role Phone Unavailable Primary Care Provider Unavailabl e Reason for Visit * Radiology Services (Routine) - Closed Specialty Diagnoses / Procedures Referred By Contac t Referred To Contact Echosonography Diagnoses Coronary artery disease due to lipid rich plaque Procedures ECHO COMPLETE Sayed Torres Blankenship MD [address] [facility] [place] [phone] [facility] Echo [address] [place] [address] Referral ID Status Reason Start Date Expiration Date Visits Re quested Visits Authorized [id number] Closed 07/17/2020 01/13/2021 1 1 Encounter Details Date Type Department Care Team (Latest Contact Info) Description 07/23/2020 12:47 PM CDT - 07/23/2020 11:59 PM CDT Hospital Encounter [facility] ECHO [address] [place] [address] Sayed Torres Blankenship MD [address] [facility] [place] [phone] Discharge Disposition: Home or Self Care Social [...] have Coronavirus / COVID-19? No / Unsure 07/23/2020 12:19 PM CDT documented as of this encounter [...] PO TID PRN 02/19/2020 10/08/2020 albuterol HFA (PROVENTIL;VENTOLIN;[place] OAIR) 108 (90 Base) MCG/ACT inhaler INHALE 2 PUFFS BY MOUTH EVERY 6 HOURS NEEDED 18 g 3 05/08/2020 09/16/2020 amLODIPine (NORVASC) 10 MG tablet Take 1 tablet by mouth once daily 90 tablet 01/28/2020 02/08/2021 aspirin (ASPIRIN) 81 MG chew tablet Take 1 tablet by mouth once daily 100 tablet 4 05/13/2020 06/03/2021 atorvastatin (LIPITOR) 40 MG tablet Take 1 tablet by mouth once daily 90 tablet 4 05/13/2020 08/24/2021 budesonide-formoterol (SYMBICORT) 160-4.5 MCG/ACT inhalerIndications:Cou gh Inhale [...] IN EACH NOSTRIL EVERY DAY 16 g 06/15/2020 09/29/2020 furosemide (LASIX) 20 MG tablet TAKE 1 TABLET BY MOUTH EVERY DAY 30 tablet 07/17/2020 10/28/2020 gabapentin (NEURONTIN) 300 MG capsule 10/07/2019 10/08/2020 hydrOXYzine pamoate (VISTARIL) 50 MG capsule Take 50 mg by mouth 10/08/20 20 ibuprofen (MOTRIN) 600 MG tablet Take 1 [...] TK 1 C PO BID 04/29/2020 10/08/2020 Pseudoephedrine-Guaife nesin (MUCINEX D PO) 022 raNITIdine [...] eczema 60 g 1 11/05/2019 10/08/2020 Umeclidinium Only (INCRUSE ELLIPTA IN) 021 ziprasidone (GEODON) 20 [...] Date/Time Associated Diagnosis Comments ECHO COMPLETE Routine 07/23/2020 1:56 PM CDT Coronary artery disease due to lipid rich plaque documented in this encounter Visit Diagnoses Diagnosis Coronary artery disease due to lipid rich plaque documented in this encounter Administered Medications Inactive Administered Medications - up to 3 most recent administrations Medication Order MAR Action Action Date Dose Rate Site perflutren Lipid Microsphere (DEFINITY) injection SUSP 0.5 mL 0.5 mL, Intravenous, INTRA-PROCEDURE MULTIPLE, 6 doses, Starting on Evette 07/23/20 at 1303, Until Mon07/24/20 at 0127, For Echo Procedure - Per Protocol Give slowly Shake well before using. $ Given 07/23/2020 1:56 PM CDT 0.5 mL documented in this encounter
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
--- OUTSIDE RECORDS SUMMARY | 2024-10-30 06:51 | XMS_ITS | Encounter Summary ---
Author Organization [facility] Address [address] [place] [address] Care Team Providers Care Office Administration Name Role Phone Ian Pollock MD Primary Care Provider [phone] Reason for Visit * Reason Onset Date Comments Results 04/29/2020 Encounter Details Date Type Department Care Team (Late st Contact Info) Description 04/29/2020 Telephone [facility] Pulmonary, Critical Care and Sleep Medicine [address] [place] [address] Agnieszka Haas MD [address] [place] [address] Results Social History Tobacco Use Types Packs/Day [...] Telephone Encounter - Deana Garcia LPN - 04/29/2020 1:04 PM CDT Pt called in returning your call from yesterday regarding test results. Pt requesting call back from Thank You! documented in this encounter Plan of Treatment [...] on filedocumented in this encounter Care Teams Office Administration Relationship Specialty Start Date End Date Ian Pollock MD PCP - General 12/13/19 05/25/20 documented as of this encounter
--- OUTSIDE RECORDS SUMMARY | 2024-10-30 06:51 | XMS_ITS | Encounter Summary ---
Author Organization [facility] Address [address] [place] [address] Care Team Providers Care Transportation Supervisor Name Role Phone Ian Pollock MD Primary Care Provider Encounter Details Date Type Department Care Team (Latest Contact Info) Description 01/09/2020 Travel Social History Tobacco Use Types Packs/Day [...] on filedocumented in this encounter Care Teams Transportation Supervisor Relationship Specialty Start Date End Date Ian Pollock MD PCP - General 12/13/19 05/25/20 documented as of this encounter
--- OUTSIDE RECORDS SUMMARY | 2024-10-30 06:51 | XMS_ITS | Encounter Summary ---
Author Organization [facility] Address [address] [facility] [place] [address] Care Team Providers Care Clerical Supervisor Name Role Phone Ian Pollock MD Primary Care Provider [phone] Reason for Visit * Reason Onset Date Comments Question 08/21/2020 Encounter Details Date Type Department Care Team (Late st Contact Info) Description 08/21/2020 Telephone [facility] Pul[facility], Critical Care and Sleep Medicine [address] [place] [id number] Agnieszka Haas MD [address] [place] [address] Question Social History Tobacco Use Types Packs/Day [...] Telephone Encounter - Deana Garcia LPN - 08/21/2020 4:19 PM CDT Spoke with pt and gave fax number for insurance transportation dx confirmation. Will look for fax to come in. Needs to be filled out before appt on 09/02 documented in this encounter Plan of Treatment [...] on filedocumented in this encounter Care Teams Clerical Supervisor Relationship Specialty Start Date End Date Ian Pollock MD [address] [place] [address] PCP - General 08/21/20 05/29/23 documented as of this encounter
--- OUTSIDE RECORDS SUMMARY | 2024-10-30 06:51 | XMS_ITS | Encounter Summary ---
Author Organization [facility] Address [address] [facility] [place] [address] Care Team Providers Care Payroll Coordinator Name Role Phone Ian Pollock MD Primary Care Provider [phone] Reason for Visit * Reason Onset Date Comments Med Question 04/06/2020 Encounter Details Date Type Department Care Team (Late st Contact Info) Description 04/06/2020 Telephone [facility] Pul[facility], Critical Care [facility] Sleep Medicine [address] [place] [address] Michelle Bobby MD [address] [place] [address] Med Question Social History Tobacco Use Types [...] as of this encounter Miscellaneous Notes * Addendum Note - Michelle Bobby MD - 04/06/2020 9:39 AM CDTAddended by: MICHELLE BOBBY on: 04/06/2020 09:39 AM Modules accepted: Orders * Telephone Encounter - Deana Garcia LPN - 04/06/2020 8:35 AM CDT Request for Prednisone, Pt has had increased SOB, uncontrollable cough, white colored mucous coughed up. Pt states prednisone always helps. ADDENDUM: I called to discuss his symptoms. He developed a cough starting on . Did a breathing treatment yesterday and said that he felt better. He says that the cough is worse at night. Denies fevers.He does feel like he is short of breath. He says that he has not had any sick contacts. Do N/V/D Noloss of sense of taste or smell. He continues to need to use his rescue inhaler even when not having these symptoms, with some relief. I discussed PFT results with him. Other than air trapping he hada normal PFT. He asked me if he has COPD, which he does not based on PFT results. I explained to him though, that he does have emphysema, and if he continue smoking will likely progress to COPD. I think his shortness of breath is multifactorial between emphysema, deconditioning, and cardiac. Therefore, I stressed the importance of keeping his upcoming cardiology appointment. He does not want to go to the ER, and I don't think he needs to at this point but I stressed to him, that if he develops worsening cough, shortness of breath, or if he develops fevers he needs to be evaluated in the emergency room without hesitation. Plan: Will provide 5 day burst of prednisone - has had this in the past multiple times and has relief. I will start him on a maintenance inhaler - Symbicort 160/4.5 mcg 2 puff BID - he has been on this before and knows how to use it properly. Reminded him to rinse mouth after use Michelle Bobby MD (Fellow) Division of Pulmonary, Critical Care, & Sleep Medicine [facility] documented in this encounter Plan of Treatment Not on file documented as of this encounter Goals Goal Patient Goal Type Associated Problems Recent Progress Patient-Stated? Author Mobility General No Stephanie Gallegos RN Note: Expected end date: *10/30/2019 The goal is to maintain or improve your mobility at the optimum level for you. Interventions: documented as of this encounter Visit Diagnoses Diagnosis Cough- Primary documented in this encounter Care Teams Payroll Coordinator Relationship Specialty Start Date End Date Ian Pollock MD PCP - General 12/13/19 05/25/20 documented as of this encounter
--- OUTSIDE RECORDS SUMMARY | 2024-10-30 06:51 | XMS_ITS | Encounter Summary ---
Author Organization [facility] Address [address] [place] [place] [address] Care Team Providers Care Security Advisor Name Role Phone Ian Pollock MD Primary Care Provider [phone] Reason for Visit * Reason Onset Date Comments Appointment 12/17/2019 Encounter Details Date Type Department Care Team (Late st Contact Info) Description 12/17/2019 Telephone [facility] [address] [place] [address] Armida Hairston Appointment Social History Tobacco Use Types Packs/Day [...] encounter Miscellaneous Notes * Telephone Encounter - Armida Hairston - 12/17/2019 8:46 AM CST Left message for patient to call our office to make an appt at the sleep center. LY MANAGER documented in this encounter Plan of [...] filedocumented in this encounter Care Teams Security Advisor Relationship Specialty Start Date End Date Ian Pollock MD PCP - General 12/13/19 05/25/20 documented as of this encounter
--- OUTSIDE RECORDS SUMMARY | 2024-10-30 06:51 | XMS_ITS | Encounter Summary ---
Author Organization [facility] Address [address] [facility] [place] [address] Care Team Providers Care Director Independent Name Role Phone Ian Pollock MD Primary Care Provider Reason for Visit * Reason Comments Refill Request Encounter Details Date Type Department Care Team (Late st Contact Info) Description 05/08/2020 Refill [facility] Internal Medicine [address] [address] Monica Tellez, GRINDING SUPERVISOR-REINSPECTOR [address] [facility] [place] [phone] Refill Request Social History Tobacco Use Types [...] encounter Miscellaneous Notes * Telephone Encounter - Sasha Hollis - 05/12/2020 2:44 PM CDT (3rd attempt) Left voicemail to schedule * Telephone Encounter - Sasha Hollis - 05/08/2020 11:12 AM CDT (1st & 2nd attempt) Left voicemail & My Chart message to schedule appointment * Telephone Encounter - Anya Conway RN - 05/08/2020 10:38 AM CDT Refill Request Josafat Calvo EDELMIRA: 12-19-19 NOV due: 6month f/u NOV scheduled: none LRF: 10-17-19 Qty Disp: 1 inhaler # of refills: 6 Allergies: Allergies Allergen Reactions ??? Lisinopril Anaphylaxis ??? Pcn [Penicillins] Anaphylaxis ??? Penicillin G Swelling Pended Medication Order: Requested Prescriptions Pending Prescriptions Disp Refills ??? albuterol HFA (PROVENTIL;VENTOLIN;PROAIR) 108 (90 Base) MCG/ACT inhaler [Pharmacy Med Name: ALBUTEROL HFA INH (200 PUFFS) 18GM] 18 g Sig: INHALE 2 PUFFS BY MOUTH EVERY [...] filedocumented in this encounter Care Teams Director Independent Relationship Specialty Start Date End Date Ian Pollock MD PCP - General 12/13/19 05/25/20 documented as of this encounter
--- OUTSIDE RECORDS SUMMARY | 2024-10-30 06:51 | XMS_ITS | Encounter Summary ---
Author Organization [facility] Address [address] [facility] [place] [address] Care Team Providers Care Tire Shop Manager Name Role Phone Ian Pollock MD Primary Care Provider [phone] Reason for Visit * Reason Comments Refill Request Encounter Details Date Type Department Care Team (Late st Contact Info) Description 05/17/2020 Refill [facility] Pul[facility], Critical Care and Sleep Medicine [address] [place] [address] Agnieszka Haas MD [address] [place] [address] Refill Request Social History Tobacco Use Types [...] on filedocumented in this encounter Care Teams Tire Shop Manager Relationship Specialty Start Date End Date Ian Pollock MD PCP - General 12/13/19 05/25/20 documented as of this encounter
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
--- OUTSIDE RECORDS SUMMARY | 2024-10-30 06:51 | XMS_ITS | Encounter Summary ---
Author Organization [facility] Address [address] [place] [address] Care Team Providers Care Energy Scheduler Name Role Phone Ian Pollock MD Primary Care Provider [phone] Reason for Visit * Reason Onset Date Comments MEDICATION REFILL 01/28/2020 Encounter Details Date Type Department Care Team (Late st Contact Info) Description 01/28/2020 Telephone [facility] Pulmonary, Critical Care and Sleep Medicine [address] [place] [address] Patricio Navarro MD [address] [place] [address] MEDICATION REFILL Social History Tobacco Use Types [...] * Telephone Encounter - Krystina Bernard - 01/28/2020 9:21 AM CDT Patient appt was cancel and reschedule he is having SOB issues and would like a refill on prednisone. ADDENDUM: Called to clarify symptoms. He says that he is not more short of breath than his usual, but says heis worried it may get worse. He has not fevers. No worsening cough or dry cough. He wants to have prednisone prescription to have on hand in case he starts developing increasing shortness of breath. Explained that I will provide the prescription but if he develops fevers, cough, GI symptoms, or significantly worsening shortness of breath then he would need to be evaluated in an emergency department or urgent care. Patricio Navarro MD (Fellow) Division of Pulmonary, Critical Care, & Sleep Medicine [facility] documented in this encounter Plan of Treatment Not on file documented as of this encounter Goals Goal Patient Goal Type Associated Problems Recent Progress Patient-Stated? Author Mobility General No Stephanie Gallegos, RN Note: Expected end date: *10/30/2019 The goal is to maintain or improve your mobility at the optimum level for you. Interventions: documented as of this encounter Visit Diagnoses Diagnosis Panlobular emphysema (HCC)- Primary Other emphysema documented in this encounter Care Teams Energy Scheduler Relationship Specialty Start Date End Date Ian Pollock MD PCP - General 12/13/19 05/25/20 documented as of this encounter
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
--- OUTSIDE RECORDS SUMMARY | 2024-10-30 06:51 | XMS_ITS | Encounter Summary ---
Author Organization [facility] Address [address] [place] [address] Care Team Providers Care Fiber Worker Name Role Phone Ian Pollock MD Primary Care Provider [phone] Reason for Visit * Reason Onset Date Comments Concerns 02/19/2020 Encounter Details Date Type Department Care Team (Late st Contact Info) Description 02/19/2020 Telephone [facility] Pul[facility], Critical Care and Sleep Medicine [address] [place] [address] Patricio Navarro MD [address] [place] [phone] Concerns Social History Tobacco Use Types Packs/Day [...] * Telephone Encounter - Krystina Bernard - 02/19/2020 9:19 AM CDT Patient called stating that he can't breathe. He finish the prednisone ten days ago he is no better. He wants you to give him a call because he is having breathing issue. Patient did not go into details about his issues. Please call the this patient MINNIE. ADDENDUM: Attempted to call back x2. No answer. Voicemail left for the patient to return call. Patricio Navarro MD 02/19/2020 11:34 AM ADDENDUM: Able to get in touch with him. He says that he had to take the prednisone. Says that he feels like he has stuff in his lungs Currently his shortness of breath is worse than usual, has been going onfor 3 days. Used a nebulizer a few and his inhaler, does not think that it's been helping. Has had increasing coughing. Had chills today. Denies fevers. Currently even going down stairs his breathingis getting worse. Says that prednisone was 2 weeks ago. He did feel better after taking prednisone.He says that he felt better afterwards. I discussed going to the emergency room for evaluation. He is very reluctant to do this. He says that I don't feel like I have the virus, I'm being very careful. He says that I always feel better with prednisone. After a lot of discussion I will provide him with a 5 day burst of prednisone withthe understanding that if his symptoms get worse at all over the weekend he needs to go to an emergency department. Also, I am going to call him on Monday, if his symptoms are not better he needs to be evaluated at an ED at that time. He expressed understanding and agreement. He also needs to be rescheduled with cardiology, he missed his appointment with them. Patricio Navarro MD 02/19/2020 12:10 PM documented in this encounter Plan of Treatment [...] exertion- Primary Other dyspnea and respiratory abnormality documented in this encounter Care Teams Fiber Worker Relationship Specialty Start Date End Date Ian Pollock MD PCP - General 12/13/19 05/25/20 documented as of this encounter
--- OUTSIDE RECORDS SUMMARY | 2024-10-30 06:51 | XMS_ITS | Encounter Summary ---
Author Organization [facility] Address [address] [facility] [place] [address] Care Team Providers Care [employer] Construction Supervisor Name Role Phone Ian Pollock MD Primary Care Provider Reason for Visit * Reason Onset Date Comments Encounter Opened In Error 09/29/2020 Encounter Details Date Type Department Care Team ([facility] Contact Info) Description 09/29/2020 Telephone [facility], Critical Care and Sleep Medicine [address] [facility], [place] [phone] Krzysztof Kramer MD [address] [facility] [address] [place] [phone] Encounter Opened In Error Social History Tobacco Use Types Packs/Day Years [...] COVID-19? No / Unsure 09/29/2020 10:07 AM SHIRT MARKER documented as of this encounter Functional Status [...] on filedocumented in this encounter Care Teams [employer] Supervisor Relationship Specialty Start Date End Date Ian Pollock MD [address] [place] [address] PCP - General 08/21/20 05/29/23 documented as of this encounter
--- OUTSIDE RECORDS SUMMARY | 2024-10-30 06:51 | XMS_ITS | Encounter Summary ---
Author Organization [facility] Address [address] [place] [address] Care Team Providers Care Director [employer] Name Role Phone Ian Pollock MD Primary Care Provider [phone] Ian Pollock MD Primary Care Provider [phone] Ian Pollock MD Primary Care Provider [phone] Ian Pollock MD Primary Care Provider [phone] Reason for Visit * Reason Onset Date Comments Results 05/08/2020 Encounter Details Date Type Department Care Team (Late st Contact Info) Description 05/08/2020 Telephone [facility], Critical Care and Sleep Medicine [address] [place] [address] Agnieszka Haas MD [address] [place] [address] Results Social History Tobacco Use Types Packs/Day [...] Telephone Encounter - Agnieszka Haas MD - 05/08/2020 11:09 AM CDT Called patient to discuss the sputum analysis and BMP results. He was upset and expressed frustration. He reported having been to the ED since he was seen by pulmonary clinic. He did not divulge the details of his symptoms or circumstances leading up to the ED visit. He reported that the medications given by us were garbage and did not control his symptoms . But , he was not interested in discussing any other options. He hung up mid phone call once he was told that his BMP looked normal. Tried reaching him again to discuss the sputum culture results but he disconnected the phone call. Agnieszka Haas MD Pulmonary / Critical Care Fellow Division of Pulmonary, Critical Care, & Sleep Medicine [facility] Beeper #[phone] documented in this encounter Plan of Treatment [...] filedocumented in this encounter Care Teams Director [employer]eron[employer] Relationship Specialty Start Date End Date Ian Pollock MD PCP - General 12/13/19 05/25/20 Ian Pollock MD PCP - General 05/26/20 06/15/20 Ian Pollock MD [address] [facility] [address] [facility] [place] [address] PCP - General 07/31/20 08/20/20 Ian Pollock MD [address] [facility] [address] [place] [address] PCP - General 08/21/20 05/29/23 documented as of this encounter
--- OUTSIDE RECORDS SUMMARY | 2024-10-30 06:51 | XMS_ITS | Encounter Summary ---
Author Organization [facility] Address [address] [facility] [place] [address] Care Team Providers Care Sales Training Manager Name Role Phone Ian Pollock MD Primary Care Provider [phone] Reason for Visit * Reason Comments Hypertension Encounter Details Date Type Department Care Team (Late st Contact Info) Description 12/19/2019 11:20 AM HIRE CAR DRIVER Office Visit [facility] General Internal Medicine [address] [facility] [address] [place] [address] Ian Pollock MD [address] [place] [address] Anxiety (Primary Dx) Social History Tobacco Use Types [...] this encounter Patient Instructions * Patient Instructions* Marti Akhtar - 12/19/2019 11:19 AM HIRE CAR DRIVER How to Contact Us Between Office Visits If you need to make an appointment with your doctor, please do so before you leave today. If you become ill and need to be seen before your next visit, you can call for a same day appointment through the Acute Care Service. Acute Care appointments with one of the physicains in the practice are generally made thesame day that you need to be seen. Please call us at [phone], option 1 thenoption 1 in the morning you would like to be seen. For scheduling routine appointments, requesting refills or leaving a message for your doctor, the office phone is [phone]. You will be given options to get to the assistance you need. Phone lines are open from 8:00 am to4:30 pm Monday through Monday. All prescription refills must be requested during regular office phone hours. Our fax number is [phone]. After hours urgent calls that cannot wait untill phone lines are open on the next business day are given to the General Internal Medicine physician education department chair. Please call [phone]. Identify yourself as a patient in our practice and give the sealing machine operator your doctor's name. The sealing machine operator will contact the physician education department chair. You can generally expect a return call within 30 minutes. On weekends, physicians are seeing hospitalized patients and there maybe a longer wait. Visit our website at [email or web address] for information about our practice and an interactive health encyclopedia. Our clinic's missed appointment policy is: - Patients with 3 consecutively missed appointments OR 3 missed appointments in a 12 month period will no longer be seen by General Internal Medicine. They will be asked to seek Primary Care outside of [facility]. - A missed appointment is defined as: * An appointment cancelled less than 24 hours in advance *Arriving to a scheduled appointment too late to be seen (Patients who arrive to clinic later than their scheduled appointment time may not be seen) * Not showing up for an appointment CAR DRIVER documented in this encounter Progress Notes * Ian Pollock MD - 12/19/2019 11:48 AM CST Josafat Calvo is a 59 year old male SUBJECTIVE: Patient with anxiety and depression He has been anxious since he read his echo report. He has been worried about the report of valve insufficiency. He missed his cardiology visit because he was stuck in traffic. He does not exercise much. He had no chest pain. Patient Active Problem List: Major depressive disorder, single episode, severe without psychotic features COPD exacerbation Panlobular emphysema Opacity of lung on imaging study Tobacco abuse Essential hypertension Lumbar spondylosis ROS I have reviewed PCF with patient. It is scanned to Media. [facility]ed [facility] and/or Care Everywhere [facility] Summary: Current medications reviewed. Allergies reviewed. Past medical history reviewed. Family history reviewed. OBJECTIVE: There were no vitals taken for this visit. Wt Readings from Last 3 Encounters: 12/10/19 241 lb (109.3 kg) 11/05/19 240 lb (108.9 kg) 09/13/19 237 lb (107.5 kg) BP Readings from Last 3 Encounters: 12/10/19 122/60 11/05/19 136/90 09/13/19 (!) 140/100 Carotid upstrokes normal. No bruits. Lungs with no wheezes, cough, rales or rhonchi. Heart with regular rate and rhythm. No murmur. Normal S1 S2. ASSESSMENT: PLAN: Anxiety Reassured patient he can wait until his cardiology visit. I advised him to continue to work with his psychiatrist and his therapist. I recommended that he work on his diet, weight loss. [facility] and [facility] classes there before CAR DRIVER documented in this encounter Plan of Treatment Not on file documented as of this encounter Goals Goal Patient Goal Type Associated Problems Recent Progress Patient-Stated? Author Mobility General No Stephanie Gallegos, RN Note: Expected end date: *10/30/2019 The goal is to maintain or improve your mobility at the optimum level for you. Interventions: documented as of this encounter Visit Diagnoses Diagnosis Anxiety- Primary Anxiety state, unspecified documented in this encounter Care Teams Sales Training Manager Relationship Specialty Start Date End Date Ian Pollock MD PCP - General 12/13/19 05/25/20 documented as of this encounter
--- OUTSIDE RECORDS SUMMARY | 2024-10-30 06:51 | XMS_ITS | Encounter Summary ---
Author Organization [facility] Address [address] [place] [address] Care Team Providers Care Barrel Bung Remover And Dumper Name Role Phone Ian Pollock MD Primary Care Provider [phone] Reason for Visit * Reason Comments Refill Request Encounter Details Date Type Department Care Team (Late st Contact Info) Description 06/13/2020 Refill [facility] General Internal Medicine [address] [address] Ian Pollock MD [address] [place] [address] Refill Request Social History Tobacco Use Types [...] Is person blind or have serious difficulty seebj g? No 11/05/2015 Does person have serious dif ficulty walking/climbing stairs? No 11/05/2015 Does person have difficulty dressing/bathing? No 11/05/2015 Does person have difficulty doing errands alone? No 11/05/2015 Cognitive Status Response Date of Assessm ent Does person have difficulty concentrating/remembering/making decisions? Yes 11/05/2015 documented as of this encounter Miscellaneous Notes * Telephone Encounter - Anya Conway RN - 06/16/2020 1:07 PM CDT Called [facility] and left a voicemail that they need to contact cardiology for refill of carvedilol. * Telephone Encounter - Ian Pollock MD - 06/16/2020 11:07 AM CDT Please call pharmacy Have refill request sent to Cardiology * Telephone Encounter - Imelda Hoff LPN - 06/16/2020 8:33 AM CDT Refill Request Josafat Branch Umesh EDELMIRA: 12.19.19 NOV scheduled: none LRF: 3 Qty Disp: 60 # of refills: 2 Allergies: Allergies Allergen Reactions ??? Lisinopril Anaphylaxis ??? Pcn [Penicillins] Anaphylaxis ??? Penicillin G Swelling Pended Medication Order: Requested Prescriptions Pending Prescriptions Disp Refills ??? carvedilol (COREG) 25 MG tablet [Pharmacy Med Name: CARVEDILOL 25MG TABLETS] 60 tablet 2 Sig: TAKE 1 TABLET BY MOUTH TWICE DAILY documented in this encounter Plan of [...] on filedocumented in this encounter Care Teams Barrel Bung Remover And Dumper Relationship Specialty Start Date End Date Ian Pollock MD PCP - General 05/26/20 06/15/20 documented as of this encounter
--- OUTSIDE RECORDS SUMMARY | 2024-10-30 06:51 | XMS_ITS | Encounter Summary ---
Author Organization [facility] Address [address] [place] [address] Care Team Providers Care Integration Assistant Name Role Phone Ian Pollock MD Primary Care Provider Reason for Referral * Procedure (Routine) - Closed Specialty Diagnoses / Procedures Referred By Florentino lowe Referred To Contact Pulmonary Disease Diagnoses Panlobular emphysema (HCC) Dyspnea on exertion Procedures COMPLETE PFT W/WO BRONCHODILATOR Tevin Gaspar MD [address] [place] [address] [facility] [address]ft [address] [place] [phone] Referral ID Status Reason Start Date Expiration Date Visits Re quested Visits Authorized [id number] Closed 12/10/2019 06/07/2020 1 1 Reason for Visit * Procedure (Routine) - Closed Specialty Diagnoses / Procedures Referred By Florentino lowe Referred To Contact Pulmonary Disease Diagnoses Panlobular emphysema (HCC) Dyspnea on exertion Procedures COMPLETE PFT W/WO BRONCHODILATOR Tevin Gaspar MD [address] [place] [address] [facility] Pft [address] [place] [address] Referral ID Status Reason Start Date Expiration Date Visits Re quested Visits Authorized [id number] Closed 12/10/2019 06/07/2020 1 1 Encounter Details Date Type Department Care Team (Latest Contact Info) Description 03/24/2020 1:15 PM CDT - 03/24/2020 11:59 PM CDT Hospital Encounter [facility] PFT [address] [place] [address] Tevin Gaspar MD [address] [facility] 2L DIV OF PULMONARY/[place] [address] Discharge Disposition: Home or Self Care Social [...] PO TID PRN 02/19/2020 10/08/2020 albuterol HFA (PROVENTIL;VENTOLIN;PRO AIR) 108 (90 Base) MCG/ACT inhaler Inhale 2 puffs by mouth every 4 hours as needed for Wheezing 1 Inhaler 6 10/17/2019 05/08/2020 amLODIPine (NORVASC) 10 MG tablet Take 1 tablet by mouth once daily 90 tablet 01/28/2020 02/08/2021 carvedilol (COREG) 25 MG tablet Take 1 tablet by mouth 2 times daily 60 tablet 2 01/28/2020 10/13/2020 gabapentin (NEURONTIN) 300 MG capsule 10/07/2019 10/08/2020 [...] meloxicam (MOBIC) 7.5 MG tablet 03/11/2019 06/17/2020 nicotine (NICODERM CQ) 7 MG/24HR patchIndications:Tobacc o use disorder Apply 1 patch to skin once daily 30 patch 6 12/10/2019 10/08/2020 omeprazole (PRILOSEC) 40 MG capsule 40 mg 5 05/14/2019 04/21/2020 Pseudoephedrine-Guaifen esin (MUCINEX D PO) 09/12/20 22 raNITIdine (ZANTAC) 300 MG tablet 01/25/2019 10/08/2020 spironolactone (ALDACTONE) 50 MG tablet Take 1 tablet by mouth once daily 30 tablet 2 01/28/2020 10/13/2020 tamsulosin (FLOMAX) 0.4 MG capsule TAKE 1 CAPSULE(0.4 MG) BY MOUTH DAILY 10/24/2019 09/29/2020 triamcinolone acetonide (KENALOG) 0.1 % cream Apply to affected area 2 times daily Apply to arms BID prn eczema 60 g 1 11/05/2019 10/08/2020 Umeclidinium [place] (INCRUSE ELLIPTA IN) 021 ziprasidone (GEODON) 20 MG capsule TK 1 C PO HS 10/09/2019 01/19/2022 documented as of this encounter Procedure Notes * Tevin Gaspar MD - 03/24/2020 2:00 PM CDT Images from the original note [...] Diagnosis Comments COMPLETE PFT W/WO BRONCHODILATOR Routine 03/24/2020 Panlobular emphysema (HCC) Dyspnea on exertion documented in this encounter Results * COMPLETE PFT W/WO BRONCHODILATOR (03/24/2020) Impressions Tevin Gaspar MD - 03/24/2020 [facility] DEPARTMENT OF PULMONARY, CRITICAL CARE, AND SLEEP MEDICINE PULMONARY FUNCTION TESTS Josafat Calvo 04/08/2020 INTERPRETATION Please see technologist's comments mentioned [...] of Pulmonary, Critical Care, & Sleep Medicine [facility] P: [phone] 04/08/2020 , 9:25 AM Tevin Gaspar MD RESPIRATORY THERAPY ORDERABLES documented in this encounter Visit Diagnoses Diagnosis Panlobular emphysema (HCC) Other emphysema Dyspnea on exertion Other dyspnea and respiratory abnormality documented in this encounter Care Teams Integration Assistant Relationship Specialty Start Date End Date Ian Pollock MD PCP - General 12/13/19 05/25/20 documented as of this encounter
--- OUTSIDE RECORDS SUMMARY | 2024-10-30 06:51 | XMS_ITS | Encounter Summary ---
Author Organization [facility] Address [address] [place] [address] Care Team Providers Care Administrative Judge Name Role Phone Ian Pollock MD Primary Care Provider Reason for Visit * Reason Onset Date Comments MEDICATION REFILL 10/08/2020 Encounter Details Date Type Department Care Team (Late st Contact Info) Description 10/08/2020 Refill [facility] Pulmonary, Critical Care and Sleep Medicine [address] [place] [phone] Agnieszka Haas MD [address] [place] [address] MEDICATION REFILL Social History Tobacco Use Types [...] COVID-19? No / Unsure 09/29/2020 10:07 AM LEAD DATABASE DEVELOPER documented as of this encounter Functional Status [...] Telephone Encounter - Agnieszka Haas MD - 10/08/2020 3:31 PM CST Called [facility] pharmacy and verified the prescription. Agnieszka Haas MD Pulmonary / Critical Care Fellow Division of Pulmonary, Critical Care, & Sleep Medicine [facility] Beeper #:[phone] DATABASE DEVELOPER documented in this encounter Plan of [...] on filedocumented in this encounter Care Teams Administrative Judge Relationship Specialty Start Date End Date Ian Pollock MD [address] [place] [address] PCP - General 08/21/20 05/29/23 documented as of this encounter
--- OUTSIDE RECORDS SUMMARY | 2024-10-30 06:51 | XMS_ITS | Encounter Summary ---
Author Organization [facility] Address [address] [facility] [place] [address] Care Team Providers Care Edge Gluer Name Role Phone Ian Pollock MD Primary Care Provider [phone] Encounter Details Date Type Department Care Team (Late st Contact Info) Description 04/22/2020 Orders Only [facility] Pulmonary, Critical Care and Sleep Medicine [address] [place] [address] Agnieszka Haas MD [address] [place] [address] Dyspnea on exertion Social History Tobacco Use [...] Procedure Name Priority Date/Time Associated Diagnosis Comments CULTURE RESPIRATORY LOWER 04/23/2020 12:18 PM CDT BASIC METABOLIC PANEL (CALCIUM TOTAL) Routine 04/23/2020 12:18 PM CDT Dyspnea on exertion documented in this encounter Results * (ABNORMAL) CULTURE RESPIRATORY LOWER (04/23/2020 12:18 PM CDT) Culture (A) [facility] Comment: ??CULTURE, SPUTUM/LOWER RESPIRATORY ?Micro Number: ?[id number] ??Test Status: ? Final ??Specimen Source: ?? SPUTUM ??Specimen Quality: ??Adequate ??Gram Stain: ?Many White blood cells seen ? No epithelial cells seen ? Many Mixed bacterial marlon ? Yeast present ? Gram stain indicates that the specimen is ? employee relations representative of the lower respiratory tract. ??Result: ?Heavy growth of Yeast Isolated. ? Please contact the laboratory within 3 days if ? further identification is desired. ??COMMENT: ? Normal oropharyngeal marlon also present. Test Performed at: [facility] ??[id number] JOSEE THAKUR MD 04/23/2020 12:1 8 PM CDT 04/23/2020 12:19 PM CDT Agnieszka Haas MD LAB - MICROBIOLOGY O RDERABLES Performing Organization Address [facility] Co de Phone Number [address] [address] * BASIC METABOLIC PANEL (CALCIUM TOTAL) (04/23/2020 12:18 PM CDT) Glucose 88 65 - 99 mg/dL [facility] Comment: ? Fasting reference interval BUN 9 7 - 25 mg/dL [facility] Creatinine 1.09 0.70 - 1.33 mg/dL [facility] Comment: For patients >49 years of age, the reference limit for Creatinine is approximately 13% higher for people identified as -Latvian. eGFR by MDRD 74 > OR = [...] 10.3 mg/dL [facility] Comment: Test Performed at: [facility] [place] [id number] [place] [address] ??[id number] PRUDENCIO ALDANA DO,MPH Blood BLOOD SPECIMEN / Unknown 04/23/2020 12:18 PM CDT 04/23/2020 12:19 PM CDT Agnieszka Haas MD LAB - CHEMISTRY ORDAdolfo ELIAS Performing Organization Address [facility] Co de Phone Number [address] [address] documented in this encounter Visit Diagnoses Diagnosis Dyspnea on exertion Other dyspnea and respiratory abnormality documented in this encounter Care Teams Edge Gluer Relationship Specialty Start Date End Date Ian Pollock MD PCP - General 12/13/19 05/25/20 documented as of this encounter
--- OUTSIDE RECORDS SUMMARY | 2024-10-30 06:51 | XMS_ITS | Encounter Summary ---
Author Organization [facility] Address [address] [place] [address] Care Team Providers Care Tire Spotter Name Role Phone Unavailable Primary Care Provider Unavailabl e Encounter Details Date Type Department Care Team (Late st Contact Info) Description 06/24/2020 Orders Only [facility] Cardiology [address] [facility] [address] [place] [address] Sayed Torres Blankenship MD [address] [place] [address] [place] [address] Coronary artery disease due to lipid rich plaque Social History Tobacco Use Types Packs/Day Years [...] lipid rich plaque documented in this encounter Results * ECHO COMPLETE (07/23/2020 1:56 PM CDT) Anatomical Region Laterality Modality Chest Echo 07/23/2020 12:0 7 PM CDT Narrative Procedure Note Brian Barney MD - 07/23/2020 Torres Blankenship MD ECHOCARDIOGRAPHY RAD IANT documented in this encounter Visit Diagnoses Diagnosis Coronary artery disease due to lipid rich plaque Coronary artery disease due to lipid rich plaque documented in this encounter
--- OUTSIDE RECORDS SUMMARY | 2024-10-30 06:51 | XMS_ITS | Encounter Summary ---
Author Organization [facility] Address [address] [facility] [place] [address] Care Team Providers Care Fashion Consultant Name Role Phone Ian Pollock MD Primary Care Provider Encounter Details Date Type Department Care Team (Latest Contact Info) Description 05/22/2020 Travel Social History Tobacco Use Types Packs/Day [...] on filedocumented in this encounter Care Teams Fashion Consultant Relationship Specialty Start Date End Date Ian Pollock MD PCP - General 12/13/19 05/25/20 documented as of this encounter
--- OUTSIDE RECORDS SUMMARY | 2024-10-30 06:51 | XMS_ITS | Encounter Summary ---
Author Organization [facility] Address [address] [facility] [place] [address] Care Team Providers Care Fish Hatchery Assistant Name Role Phone Ian Pollock MD Primary Care Provider [phone] Reason for Visit * Reason Onset Date Comments Follow-up Report 01/14/2020 Encounter Details Date Type Department Care Team (Late st Contact Info) Description 01/14/2020 Telephone [facility] Pulmonary, Critical Care and Sleep Medicine [address] [place] [address] Patricio Navarro MD [address] [place] [id number] Follow-up Report Social History Tobacco Use Types Packs/Day Years [...] encounter Miscellaneous Notes * Telephone Encounter - Jose Deanapatricia Padilla LPN - 01/14/2020 2:25 PM CDT Pt called in to notify Dr that he took the prednisone, Monday -Monday and has appointment with sleep medicine on 01/27/2020 ADDENDUM: Noted Patricio Navarro MD (Fellow) Division of Pulmonary, Critical Care, & Sleep Medicine [facility] documented in this encounter Plan of [...] on filedocumented in this encounter Care Teams Fish Hatchery Assistant Relationship Specialty Start Date End Date Ian Pollock MD PCP - General 12/13/19 05/25/20 documented as of this encounter
--- OUTSIDE RECORDS SUMMARY | 2024-10-30 06:51 | XMS_ITS | Encounter Summary ---
Author Organization [facility] Address [address] [facility] [place] [address] Care Team Providers Care Internal Revenue Service Agent Name Role Phone Ian Pollock MD Primary Care Provider [phone] Reason for Visit * Reason Comments Refill Request Encounter Details Date Type Department Care Team (Late st Contact Info) Description 06/12/2020 Refill [facility] Pulmonary, Critical Care and Sleep Medicine [address] [place] [address] Agnieszka Haas MD [address] [place] [address] Refill Request Social History Tobacco Use Types [...] on filedocumented in this encounter Care Teams Internal Revenue Service Agent Relationship Specialty Start Date End Date Ian Pollock MD PCP - General 05/26/20 06/15/20 documented as of this encounter
--- OUTSIDE RECORDS SUMMARY | 2024-10-30 06:51 | XMS_ITS | Encounter Summary ---
Author Organization [facility] Address [address] [facility] [place] [address] Care Team Providers Care Alteration Workroom Supervisor Name Role Phone Ian Pollock MD Primary Care Provider [phone] Reason for Visit * Reason Comments COPD Encounter Details Date Type Department Care Team (Late st Contact Info) Description 03/24/2020 4:00 PM CDT Office Visit [facility] Pulmonary, Critical Care and Sleep Medicine [address] [place] [address] Patricio Navarro MD [address] [place] [address] Dyspnea on exertion (Primary Dx) Social History Tobacco Use Types Packs/Day Years Used Date Smoking Tobacco: Every Day Cigarettes 0.3 25 Smokeless Tobacco: Never Tobacco Cessation:Ready to Q uit: Yes; Counseling Given: Yes Comments:Smoked for 30 years. Alcohol Use Standard Drinks/Week Comments Yes 6 [...] PM CDT documented as of this encounter Last Filed Vital Signs Vital Sign Reading Time Taken Comments Blood Pressure - - Pulse 101 03/24/2020 1:28 PM CDT Temperature 36.6 ??C (97.9 ??F) 03/24/2020 1:28 PM CD T Respiratory Rate 20 03/24/2020 1:28 PM CDT Oxygen Saturation 100% 03/24/2020 1:28 PM CDT Inhaled Oxygen Concentration - - Weight 107.8 kg (237 lb 9.6 oz) 03/24/2020 1:28 PM CDT Height - - Body Mass Index 35.09 12/10/2019 2:41 PM RADIOLOGY ASST documented in this encounter Functional Status Functional [...] as of this encounter Progress Notes * Patricio Navarro MD - 03/24/2020 4:00 PM CDT Patient arrived in clinic two hours before scheduled appointment time. He left after only about 30 minutes and did not return. Attempted to call multiple times but he did not answer. Voicemail left. Patricio Navarro MD (Fellow) Division of Pulmonary, Critical Care, & Sleep Medicine [facility] documented in this encounter Plan of [...] abnormality documented in this encounter Care Teams Alteration Workroom Supervisor Relationship Specialty Start Date End Date Ian Pollock MD PCP - General 12/13/19 05/25/20 documented as of this encounter
--- OUTSIDE RECORDS SUMMARY | 2024-10-30 06:51 | XMS_ITS | Encounter Summary ---
Author Organization [facility] Address [address] [facility] [address] Care Team Providers Care Retail Supervisor Name Role Phone Ian Pollock MD Primary Care Provider Reason for Visit * Reason Onset Date Comments MEDICATION REFILL 09/29/2020 Encounter Details Date Type Department Care Team (Late st Contact Info) Description 09/29/2020 Refill [facility] Pulmonary, Critical Care and Sleep Medicine [address] [place] [phone] gAnieszka Haas MD [address] [place] [address] MEDICATION REFILL Social History Tobacco Use Types [...] COVID-19? No / Unsure 09/29/2020 10:07 AM FIELD KILN BURNER documented as of this encounter Functional Status [...] on filedocumented in this encounter Care Teams Retail Supervisor Relationship Specialty Start Date End Date Ian Pollock MD [address] [place] [address] PCP - General 08/21/20 05/29/23 documented as of this encounter
--- OUTSIDE RECORDS SUMMARY | 2024-10-30 06:51 | XMS_ITS | Encounter Summary ---
Author Organization [facility] Address [address] [facility] [place] [address] Care Team Providers Care Second Chef Name Role Phone Ian Pollock MD Primary Care Provider Reason for Visit * Reason Comments Refill Request Encounter Details Date Type Department Care Team (Late st Contact Info) Description 01/21/2020 Refill [facility] General Internal Medicine [address] [address] Monica Tellez, GUM MIXER-LIDAR SCIENTIST [address] [facility] [place] [address] Refill Request Social History Tobacco Use Types [...] on filedocumented in this encounter Care Teams Second Chef Relationship Specialty Start Date End Date Ian Pollock MD PCP - General 12/13/19 05/25/20 documented as of this encounter
--- OUTSIDE RECORDS SUMMARY | 2024-10-30 06:51 | XMS_ITS | Encounter Summary ---
Author Organization [facility] Address [address] [place] [address] Care Team Providers Care Chicken Raiser Name Role Phone Ian Pollock MD Primary Care Provider [phone] Ian Pollock MD Primary Care Provider [phone] Ian Pollock MD Primary Care Provider [phone] Ian Pollock MD Primary Care Provider [phone] Katina Casiano DO Unavailable [phone] Xavi ACOSTA MD, Fred R Primary Care Provider + Katina Casiano DO Unavailable [phone] Tracey Ang PA Unavailable [phone] Belkis Angel MANAGER VIDEO GAMES-FLOATING LABOR GANG SUPERVISOR Primary Care Provider + Natalie Baum Primary Care Provider [phone] Reason for Visit * Reason Onset Date Comments Referral 12/13/2019 Encounter Details Date Type Department Care Team (Late st Contact Info) Description 12/13/2019 Telephone [facility] [address] [place] [address] Monica Tellez, MANAGER VIDEO GAMES-FLOATING LABOR GANG SUPERVISOR [address] [place] [address] Referral Social History Tobacco Use Types Packs/Day [...] encounter Miscellaneous Notes * Telephone Encounter - Janice Conn RN - 12/19/2019 8:51 AM PROFESSOR OF THEATER Was able to speak with patient regarding his directive to call his insurance company for them to give him a listing of the Cardiologists in [place], and also tell him that he would be given to another PCP because Dr. Pollock will be going to very part-time in March, but patient apprised this TNs thathe had called for a more current appointment, and is to see Dr. Pollock today. ESSOR OF THEATER * Telephone Encounter - Monica Tellez APRN-CNP - 12/16/2019 4:30 PM PROFESSOR OF THEATER Do not [place] hot car operator [place]. He will need to call his insurance company for list of [place] hot car operator. His appt was to be changed from Dr Pollock to a resident since Dr Pollock will be going to very automotive parts counterperson in March and should not have new patients. MARISOL Díaz ESSOR OF THEATER * Telephone Encounter - Janice Conn RN - 12/13/2019 10:45 AM PROFESSOR OF THEATER Routing message to Dr Pollock ESSOR OF THEATER * Telephone Encounter - Meenu Hidalgo - 12/13/2019 10:36 AM CST PT is calling and wanting to be referred to a hot car operator [place]. PT stats it wouldbe more convenient and easier for the med cab. PT CBN:[phone] ESSOR OF THEATER documented in this encounter Plan of Treatment [...] on filedocumented in this encounter Care Teams Chicken Raiser Relationship Specialty Start Date End Date Ian Pollock MD PCP - General 12/13/19 05/25/20 Ian Pollock MD PCP - General 05/26/20 06/15/20 Ian Pollock MD [address] [facility] [place] [address] PCP - General 07/31/20 08/20/20 Ian Pollock MD [address] [facility] [place] [address] PCP - General 08/21/20 05/29/23 Jameel Hurley III, MD [address] [place] [id number] PCP - General Internal Medicine 06/05/23 08/28/23 Belkis Angel, MANAGER VIDEO GAMES-FLOATING LABOR GANG SUPERVISOR [address] [place] [id number] PCP - General Nurse Practitioner 08/29/23 05/05/24 Natalie Baum [address] [place] [address] PCP - General 05/06/24 Katina Casiano DO [address] [facility] INTERNAL MEDICINE [place], [place] Resident - PCP Internal Medicine 08/10/22 05/29/23 Katina Casiano DO [address] [facility] INTERNAL MEDIC[facility] [place], [place] Hospitalist 06/05/23 Tracey Ang PA [address] [facility] [address] [place] [address] Physician Teaching Pastor 08/15/23 documented as of this encounter
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
--- OUTSIDE RECORDS SUMMARY | 2024-10-30 06:51 | XMS_ITS | Encounter Summary ---
Author Organization [facility] Address [address] [place] [address] Care Team Providers Care Account Executive Name Role Phone Ian Pollock MD Primary Care Provider [phone] Reason for Visit * Reason Onset Date Comments Refill Request 09/29/2020 Encounter Details Date Type Department Care Team ([facility] Contact Info) Description 09/29/2020 Telephone [facility] Pulmonary, Critical Care and Sleep Medicine [address] [place] [id number] Agnieszka Haas MD [address] [place] [address] Refill Request Social History Tobacco Use Types [...] COVID-19? No / Unsure 09/29/2020 10:07 AM BLENDING PLANT OPERATOR documented as of this encounter Functional Status Functional Status Response Date of Assess ment Is person deaf or have serious hearing difficult y? No 11/05/2015 Is person blind or have serious difficulty seebj arias? No 11/05/2015 Does person have serious [...] on filedocumented in this encounter Care Teams Account Executive Relationship Specialty Start Date End Date Ian Pollock MD [address] [place] [address] PCP - General 08/21/20 05/29/23 documented as of this encounter
--- OUTSIDE RECORDS SUMMARY | 2024-10-30 06:51 | XMS_ITS | Encounter Summary ---
Author Organization [facility] Address [address] [facility] [place] [address] Care Team Providers Care Mine Boss Name Role Phone Ian Pollock MD Primary Care Provider [phone] Encounter Details Date Type Department Care Team ([facility] Contact Info) Description 10/08/2020 Orders Only [facility] General Internal Medicine [address] [place] [address], [place] [id number] Ian Pollock MD [address] [place] [address] [address] [facility] [place] [address] Social History Tobacco Use Types Packs/Day Years [...] COVID-19? No / Unsure 09/29/2020 10:07 AM ANGIOGRAPHY NURSE documented as of this encounter Functional Status [...] Progress Notes * Ian Pollock MD - 10/08/2020 8:09 AM CST Telephone Note Patient Verification & Telemedicine Based Consent Today's visit was conducted virtually due to COVID-19 countermeasures. The patient has given verbalconsent to have today's visit conducted by this same means with treatment provided remotely. The patient verbally consents to the billing and collection practices of the provider's medical group. Josafat is a 60 year old male who has completed a telephone encounter. Subjective No chief complaint on file. Patient history reviewed in [employer]. ROS Objective No physical exam was able to be performed by phone. Data review: Assessment & Plan No diagnosis found. Encounter duration: minutes Patient location: This encounter was performed using: The plan was reviewed with the patient and the patient confirmed understanding of the plan and all follow-up steps. {Coding Information for telephone visits (F2 and delete to remove section quickly) 5-10 minutes 69811 11-20 minutes 34562 21-30 minutes 21838 } Ian Pollock MD OGRAPHY NURSE documented in this encounter Plan of [...] on filedocumented in this encounter Care Teams Mine Boss Relationship Specialty Start Date End Date Ian Pollock MD [address] [place] [address] PCP - General 08/21/20 05/29/23 documented as of this encounter
--- OUTSIDE RECORDS SUMMARY | 2024-10-30 06:51 | XMS_ITS | Encounter Summary ---
Author Organization [facility] Address [address] [place] [address] Care Team Providers Care Digital Art Director Name Role Phone Ian Pollock MD Primary Care Provider [phone] Reason for Visit * Reason Onset Date Comments MEDICATION REFILL 01/28/2020 Encounter Details Date Type Department Care Team (Late st Contact Info) Description 01/28/2020 Refill [facility] General Internal Medicine [address] [facility] [address] [place] [address] Ian Pollock MD [address] [place] [address] MEDICATION REFILL Social History Tobacco Use Types [...] encounter Miscellaneous Notes * Telephone Encounter - Marti Akhtar - 01/28/2020 1:44 PM CDT Refill Request Josafat Calvo EDELMIRA: 12/19/19 NOV due: 01/21/20 NOV scheduled: NONE Allergies: Allergies Allergen Reactions ??? Lisinopril Anaphylaxis ??? Pcn [Penicillins] Anaphylaxis ??? Penicillin G Swelling Pended Medication Order: Requested Prescriptions Pending Prescriptions Disp Refills ??? amLODIPine (NORVASC) 10 MG tablet 90 tablet 4 Sig: Take 1 tablet by mouth once daily ??? carvedilol (COREG) 25 MG tablet 60 tablet 2 Sig: Take 1 tablet by mouth 2 times daily ??? spironolactone (ALDACTONE) 50 MG tablet 30 tablet 11 Sig: Take 1 tablet by mouth once daily documented in [...] filedocumented in this encounter Care Teams Digital Art Director Relationship Specialty Start Date End Date Ian Pollock MD PCP - General 12/13/19 05/25/20 documented as of this encounter
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
--- OUTSIDE RECORDS SUMMARY | 2024-10-30 06:51 | XMS_ITS | Encounter Summary ---
Author Organization [facility] Address [address] [place] [address] Care Team Providers Care Bushel Girl Name Role Phone Unavailable Primary Care Provider Unavailabl e Encounter Details Date Type Department Care Team (Latest Contact Info) Description 07/23/2020 Travel Social History Tobacco Use Types Packs/Day [...]
--- OUTSIDE RECORDS SUMMARY | 2024-10-30 06:51 | XMS_ITS | Encounter Summary ---
Author Organization [facility] Health Address [address] [facility] [address] [place] [address] Care Team Providers Care Bin Cleaner Name Role Phone Unavailable Primary Care Provider Unavailabl e Reason for Visit * Reason Onset Date Comments Cardiac Rehab 06/25/2020 Encounter Details Date Type Department Care Team (Late st Contact Info) Description 06/25/2020 Telephone [facility] [address] [place] [address] Marcy Michelle, acrobatic dancer Social History Tobacco Use Types Packs/Day Years [...] encounter Miscellaneous Notes * Telephone Encounter - Marcy Michelle RN - 06/25/2020 4:56 PM CDT Left message for pt to call us back regarding his interest in cardiac rehab. Asked on message if hewould be interested in attending the CR at [facility] in [place], [place] near his home. documented in this encounter Plan of Treatment [...]
--- OUTSIDE RECORDS SUMMARY | 2024-10-30 06:51 | XMS_ITS | Encounter Summary ---
Author Organization [facility] Address [address] [place] [address] Care Team Providers Care Brazer Furnace Name Role Phone Ian Pollock MD Primary Care Provider [phone] Encounter Details Date Type Department Care Team (Latest Contact Info) Description 01/20/2020 Travel Social History Tobacco Use Types Packs/Day [...] on filedocumented in this encounter Care Teams Brazer Furnace Relationship Specialty Start Date End Date Ian Pollock MD PCP - General 12/13/19 05/25/20 documented as of this encounter
--- OUTSIDE RECORDS SUMMARY | 2024-10-30 06:51 | XMS_ITS | Encounter Summary ---
Author Organization [facility] Address [address] [place] [address] Care Team Providers Care Hi Teacher Name Role Phone Ian Pollock MD Primary Care Provider [phone] Reason for Visit * Reason Comments Refill Request Encounter Details Date Type Department Care Team (Late st Contact Info) Description 06/14/2020 Refill [facility] [address] [place] [address] Agnieszka Haas MD [address] [place] [address] Refill Request Social History Tobacco Use Types [...] on filedocumented in this encounter Care Teams Hi Teacher Relationship Specialty Start Date End Date Ian Pollock MD PCP - General 05/26/20 06/15/20 documented as of this encounter
--- OUTSIDE RECORDS SUMMARY | 2024-10-30 06:51 | XMS_ITS | Encounter Summary ---
Author Organization [facility] Address [address] [place] [address] Care Team Providers Care Image Scientist Name Role Phone Ian Pollock MD Primary Care Provider [phone] Encounter Details Date Type Department Care Team (Latest Contact Info) Description 03/09/2020 Travel Social History Tobacco Use Types Packs/Day [...] on filedocumented in this encounter Care Teams Image Scientist Relationship Specialty Start Date End Date Ian Pollock MD PCP - General 12/13/19 05/25/20 documented as of this encounter
--- OUTSIDE RECORDS SUMMARY | 2024-10-30 06:51 | XMS_ITS | Encounter Summary ---
Author Organization [facility] Address [address] [place] [address] Care Team Providers Care Tile Setter Apprentice Name Role Phone Ian Pollock MD Primary Care Provider [phone] Reason for Visit * Reason Onset Date Comments Medication Issue 01/21/2020 requesting pain medication Medication Issue 01/21/2020 1st attempt Encounter Details Date Type Department Care Team (Late st Contact Info) Description 01/21/2020 Telephone [facility] General Internal Medicine [address] [address] Ian Pollock MD [address] [facility] [place] [address] Medication Issue (requesting pain medication); Medication Issue (1st attempt) Social History Tobacco Use Types Packs/Day Years [...] encounter Miscellaneous Notes * Telephone Encounter - Melisa Freedman RN - 01/21/2020 4:11 PM CDT Patient called back; he initially understood the pain management clinic in [facility]--the only pain management office that takes his insurance--was closed. He has since learned they are open and will contact them again to re-establish care. * Telephone Encounter - Nadeem Hancock - 01/21/2020 4:03 PM CDT 1st attempt Telephone call to pt to relay message below, no answer at this time. VM message left requesting call back to office, hours and phone number provided: Message from Dr. Pollock Please call patient . Since the surgery is going to be delayed for what may be months, it is best if he continue care with the Pain Clinic he has been seeing. They know him and have developed his current pain management plan. They need to take into consideration the fact that surgery was cancelled. Will re-attempt at a later time * Telephone Encounter - Ian Pollock MD - 01/21/2020 3:56 PM CDT Please call patient . Since the surgery is going to be delayed for what may be months, it is best if he continue care with the Pain Clinic he has been seeing. They know him and have developed his current pain management plan. They need to take into consideration the fact that surgery was cancelled. * Telephone Encounter - Melisa Freedman RN - 01/21/2020 3:16 PM CDT Patient called requesting pain medication for back pain; was scheduled for surgery for the same butdue to Covid-19, that surgery has been delayed; has received tylenol #4 from pain medicine doctor; pain medication MD has referred patient back to PCP for pain medication because that physician discharged patient from her practice when his back surgery was planned; Best call back number to reach patient: [phone]. documented in this encounter Plan of Treatment [...] filedocumented in this encounter Care Teams Tile Setter Apprentice Relationship Specialty Start Date End Date Ian Pollock MD PCP - General 12/13/19 05/25/20 documented as of this encounter
--- OUTSIDE RECORDS SUMMARY | 2024-10-30 06:51 | XMS_ITS | Encounter Summary ---
Author Organization [facility] Address [address] [place] [address] Care Team Providers Care Grooming Assistant Name Role Phone Ian Pollock MD Primary Care Provider Ian Pollock MD Primary Care Provider [phone] Ian Pollock MD Primary Care Provider [phone] Ian Pollock MD Primary Care Provider [phone] Katina Casiano DO Unavailable [phone] Xavi ACOSTA MD, Jameel R Primary Care Provider + Katina Casiano DO Unavailable Tracey Ang PA Unavailable [phone] Beklis Angel TRANSITION OF CARE SPECIALIST-BOTTOMING ROOM INSPECTOR Primary Care Provider + Natalie Baum Primary Care Provider [phone] Reason for Visit * Reason Onset Date Comments MEDICATION REFILL 05/05/2020 Encounter Details Date Type Department Care Team (Late st Contact Info) Description 05/05/2020 Refill [facility] [address] [place] [address] Agnieszka Haas MD [address] [place] [address] MEDICATION REFILL Social History Tobacco Use Types [...] on filedocumented in this encounter Care Teams Grooming Assistant Relationship Specialty Start Date End Date Ian Pollock MD PCP - General 12/13/19 05/25/20 Ian Pollock MD PCP - General 05/26/20 06/15/20 Ian Pollock MD [address] [facility] [place] [address] PCP - General 07/31/20 08/20/20 Ian Pollock MD [address] [facility] [place] [address] PCP - General 08/21/20 05/29/23 Jameel Hurley III, MD [address] [facility] [place] [id number] PCP - General Internal Medicine 06/05/23 08/28/23 Belkis Angel, TRANSITION OF CARE SPECIALIST-BOTTOMING ROOM INSPECTOR [address] [facility] 2[address] [place] [phone] PCP - General Nurse Practitioner 08/29/23 05/05/24 Natalie Baum [address] [place] [address] PCP - General 05/06/24 Katina Casiano DO [address] [facility] [place] Resident - PCP Internal Medicine 08/10/22 05/29/23 Katina Casiano DO [address] [facility] [place], [place] Hospitalist 06/05/23 Tracey Ang PA [address] [facility] [address] [place] [address] Physician Space Officer 08/15/23 documented as of this encounter
--- OUTSIDE RECORDS SUMMARY | 2024-10-30 06:51 | XMS_ITS | Encounter Summary ---
Author Organization [facility] Address [address] [place] [address] Care Team Providers Care Eco Industrial Development Consultant Name Role Phone Ian Pollock MD Primary Care Provider [phone] Reason for Visit * Reason Onset Date Comments Follow-up 06/08/2020 Encounter Details Date Type Department Care Team ([facility] Contact Info) Description 06/08/2020 Telephone [facility] Card[facility] [address] [facility] [address] [place] [address] Elda Cantu RN Follow-up Social History Tobacco [...] Miscellaneous Notes * Telephone Encounter - Elda Cantu, RN - 06/08/2020 10:04 AM CDT Pt called requesting that laborer mine reschedule his cardiac cath-he states that his ride did not cometo get him 06/01/2020 and he spoke to laborer mine 06/01/2020 and is awaiting call back to rescheduled. Pt aware I will forward to cardiac laborer mine scheduling. documented in this encounter Plan of Treatment [...] on filedocumented in this encounter Care Teams Eco Industrial Development Consultant Relationship Specialty Start Date End Date Ian Pollock MD PCP - General 05/26/20 06/15/20 documented as of this encounter
--- OUTSIDE RECORDS SUMMARY | 2024-10-30 06:51 | XMS_ITS | Encounter Summary ---
Author Organization [facility] Address [address] [facility] [place] [address] Care Team Providers Care Police Superintendent Name Role Phone Ian Pollock MD Primary Care Provider Encounter Details Date Type Department Care Team (Late st Contact Info) Description 01/17/2020 Orders Only [facility] [address] [place] [address], [place] [id number] April Mora MD [address] [place] [address] [place] [address] Low back pain, unspecified back [...] L5-S1. Report dictated by Fabrizio Aparicio M.D. (vice president industrial relations). I, Dr. BOOKER DEE MD have personally [...] L5-S1. Report dictated by Fabrizio Aparicio M.D. (vice president industrial relations). I, Dr. BOOKER DEE MD have personally [...] present documented in this encounter Care Teams Police Superintendent Relationship Specialty Start Date End Date Ian Pollock MD PCP - General 12/13/19 05/25/20 documented as of this encounter
--- OUTSIDE RECORDS SUMMARY | 2024-10-30 06:51 | XMS_ITS | Encounter Summary ---
Author Organization [facility] Address [address] [facility] [place] [address] Care Team Providers Care Underwriting Intern Name Role Phone Ian Pollock MD Primary Care Provider [phone] Reason for Visit * Reason Onset Date Comments Follow-up 02/24/2020 Encounter Details Date Type Department Care Team (Late st Contact Info) Description 02/24/2020 Telephone [facility] [address] [place] [address] Patricio Navarro MD [address] [place] [id number] Follow-up Social History Tobacco Use Types Packs/Day [...] encounter Miscellaneous Notes * Telephone Encounter - Patricio Navarro MD - 02/24/2020 9:05 AM CDT I called to check on him. He is feeling much better after another course of steroids. No other issues at this time. Still needs to be rescheduled with Cardiology. Patricio Navarro MD (Fellow) Division of Pulmonary, Critical Care, & Sleep Medicine [facility] documented in this encounter Plan of Treatment [...] on filedocumented in this encounter Care Teams Underwriting Intern Relationship Specialty Start Date End Date Ian Pollock MD PCP - General 12/13/19 05/25/20 documented as of this encounter
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
--- OUTSIDE RECORDS SUMMARY | 2024-10-30 06:51 | XMS_ITS | Encounter Summary ---
Author Organization [facility] Address [address] [facility] [facility] [address] Care Team Providers Care Advertising Consultant Name Role Phone Ian Pollock MD Primary Care Provider [phone] Reason for Referral * Radiology Services (Routine) - Closed Specialty Diagnoses / Procedures Referred By Florentino lowe Referred To Contact Fluoroscopy Diagnoses Hip pain, chronic, left Primary osteoarthritis of left hip Hip dysplasia (HCC) Procedures FL JOINT INJECTION OR ASPIRATE Magdalena Salter PA No Information available Referral ID Status Reason Start Date Expiration Date Visits Re quested Visits Authorized [id number] Closed 10/06/2020 10/06/2021 1 1 ODITY MERCHANT Reason for Visit * Reason Comments Pain Hip left Encounter Details Date Type Department Care Team ([facility] st Contact Info) Description 10/06/2020 9:00 AM COMMODITY MERCHANT Office Visit [facility] - Orthopedics [address] [place] [phone] Magdalena Salter PA No Information available Hip pain, chronic, left (Primary Dx); Primary osteoarthritis of left hip; Hip dysplasia (HCC) Social History Tobacco Use Types Packs/Day [...] COVID-19? No / Unsure 09/29/2020 10:07 AM COMMODITY MERCHANT documented as of this encounter Last Filed Vital Signs Vital Sign Reading Time Taken Comments Blood Pressure - - Pulse - - Temperature - - Respiratory Rate - - Oxygen Saturation - - Inhaled Oxygen Concentration - - Weight 107 kg (236 lb) 10/06/2020 8:47 AM COMMODITY MERCHANT Height 175.3 cm (5' 9 ) 10/06/2020 8:47 AM COMMODITY MERCHANT Body Mass Index 34.85 10/06/2020 8:47 AM COMMODITY MERCHANT documented in this encounter Functional Status Functional [...] this encounter Patient Instructions * Patient Instructions* Magdalena Salter PA - 10/06/2020 9:11 AM COMMODITY MERCHANT Images from the original note were not included. - [email or web address] Orthopaedic Surgery Clinic Josafat Calvo 10/06/2020 Thank you for coming in to see us today. Work/School Excuse: Excused from Work/School on 10/06/20 DIAGNOSIS: Hip pain, chronic, left - Plan: FL JOINT INJECTION OR ASPIRATE Primary osteoarthritis of left hip - Plan: FL JOINT INJECTION OR ASPIRATE Hip dysplasia - Plan: FL JOINT INJECTION OR ASPIRATE Plan: We discussed and recommended conservative treatment and education which includes: icing 20 minutes at a time, 3 to 5 times daily, anti-inflammatory medications and tylenol Left hip injection is the next step. Follow up: over the phone 2 weeks after injecitons Call or return to clinic prn if these symptoms worsen or fail to improve as anticipated. If approved to take by your primary care physician, NSAIDs (non-steroidal anti- inflammatory drugs) such as Aleve/naproxen and Motrin/ibuprofen are suggested to relieve inflammation and pain for a short course of therapy for 10 days, advised to take with food. If you develop any adverse side effectssuch as dysphasia, stomach pain, or changes in bladder, please discontinue the medication immediately. Please take the following to promote bone health: ?? Multivitamin 1 tablet daily ?? Vitamin D3 and Calcium as directed by your primary care provider. Cryotherapy is commonly used to reduce temperature, inflammation, pain, muscle spasm and symptoms of delayed onset muscle soreness. There are various methods of ice application such as ice pack, coldpack, cold water immersion, ice massage. You may apply ice to the affected area for 10 minutes at atime. To Find out more info about your diagnosis, visit: [email or web address].org/ Patient was educated and given information regarding their diagnosis today. [facility] Orthopaedic office contact information: Please contact our call center at , option #1 to make an appointment Our Locations: [facility] [address] [place] [address], [address], [place] [address] Please contact the MA at , if you have any further questions or concerns. [facility] [address] [place] [address] Please contact the office at if you have any further questions or concerns. Sincerely, BERNABE Sanderson PA-C [email or web address] ODITY MERCHANT documented in this encounter Progress Notes * Magdalena Salter PA - 10/06/2020 8:41 AM CST ESTABLISHED PATIENT VISIT Patient ID: Josafat Calvo is a 60 year old male. CHIEF COMPLAINT Left hip pain HISTORY OF PRESENT ILLNESS: Patient is a 60 year old male who presents for return evaluation of left hip pain that is chronic and has been worse for about 2 months. Patient was last seen on 04/27/[address] Mora and has been managed conservatively thus far due to use of nicotine. He had called the office last month requesting an injection. This has yet to be scheduled. Pain is located in the left groin with radiation around into the left inferior buttock, no leg pain. Pain is constant aching/sharp/burning. Symptoms worsen with getting out of bed in the morning, walking long distances. Symptoms are relieved with stretching to a certain degree as well as with injections. Patient has tried walking, stretching. MEDICAL/SURGICAL/FAMILY/SOCIAL HISTORY-reviewed in chart REVIEW OF SYSTEMS - Constitutional: negative for fever, chills, night sweats; Urinary: negative forurinary retention or incontinence; GI: negative for bowel incontinence PHYSICAL EXAM: Alert, oriented and cooperative. Mood and affect appropriate. Gait without deviation. Skin warm and dry. Standing posture erect without forward leaning or hyperlordosis. Respirations even unlabored. No cyanosis, clubbing or edema. LUMBAR EXAMINATION: Gross inspection of the lumbar spine demonstrates overall alignment is normal. There is no gross deformity appreciated and no step off noted. Tenderness to palpation is present over the lumbosacral junction and left lateral hip. Overall range of motion includes: Flexion 45 deg.; Extension 20 deg; Lateral Flexion 15 deg. bilaterally.; Rotation 10 deg. Bilaterally. Sit-slump test is negative on both sides. HIP EXAMINATION: Range of motion includes: Flexion 120; IRF 30; ERF 50; significant pain in the left groin with all planes of left hip ROM. Hip flexor strength is 5 out of 5. Logroll is negative. Izabela's test is positive on the left for groin pain. SKIN: Inspection and palpation of the skin of the lumbar region without eyrthema, edema, rashes, or lesions. LOWER DERMATOMES Right: Anterior & Medial Thigh (L3) Intact Medial Leg & Ankle (L4) Intact Dorsal Foot & 1st Web Space (L5) Intact Lateral & Plantar Foot (S1) Intact Perineum Sensation (S2-4)Intact per patient Left: Anterior & Medial Thigh (L3) Intact Medial Leg & Ankle (L4) Intact Dorsal Foot & 1st Web Space (L5) Intact Lateral & Plantar Foot (S1) Intact Perineum Sensation (S2-4)Intact per patient LOWER MYOTOMES Right: Quadriceps (Knee Ext. L3-L4) 5 /5 Tibialis Ant. (Ankle DF L4)5 /5 EHL (Toe DF, L5) 5 /5 Gastrocnemius (Ankle PF S1) 5 /5 Left: Quadriceps (Knee Ext. L3-L4) 5 /5 Tibialis Ant. (Ankle DF L4)5 /5 EHL (Toe DF, L5) 5 /5 Gastrocnemius (Ankle PF S1) 5 /5 LOWER REFLEXES Right: Knee Extension (L4) 2+ Achilles (S1) 2+ Clonus negative Left: Knee Extension (L4) 2+ Achilles (S1) 2+ Clonus negative VASCULAR: Bilateral lower extremity without edema, pallor, or rubor. Capillary refill brisk. PULMONARY: Unlabored respirations. IMAGING: Imaging of pelvis ordered 04/27/2020 and reviewed by me revealing mild bilateral hip OA andslight decrease in femoral head-neck junction consistent with mild dysplasia. ASSESSMENT: Left intraarticular hip pain in the setting of mild OA and dysplasia TREATMENT PLAN: 60 year old male with pain in the left groin and buttock most consistent with intraarticular hip pain with known mild structural changes. I recommend he move forward with an intraarticular hip injection under fluoro guidance. He was scheduled for this injection while here in the office. He will forego the spine injection for now. He will contact the clinic with an update on symptoms 2 weeks s/p injection. 1. Patient was counseled to the nature of the diagnosis and demonstrated understanding. All questions answered. 2. PT: continue HEP 3. Rx: none at this time 4. Lifting/Activity restrictions: none 5. Follow up via telephone 2 wks s/p injection 6. Follow up Imaging: none Magdalena Salter [facility], PA-C [facility] Orthopaedic Surgery Collaborative practice with Dr. Jose Cummings, Dr. April Mora, and Dr. Robert Dewey. ODITY MERCHANT documented in this encounter Plan of Treatment Not on file documented as of this encounter Goals Goal Patient Goal Type Associated Problems Recent Progress Patient-Stated? Author Mobility General No Stephanie Gallegos, RN Note: Expected end date: *10/30/2019 The goal is to maintain or improve your mobility at the optimum level for you. Interventions: documented as of this encounter Results * FL JOINT INJECTION OR ASPIRATE (10/14/2020 10:36 AM COMMODITY MERCHANT) Anatomical Region Laterality Modality Upper Extremity, Lower Extremity, Pelvis, Chest Radiographic Imaging 10/14/2020 12:1 7 PM COMMODITY MERCHANT Impressions 10/14/2020 12:20 PM COMMODITY MERCHANT IMPRESSION: Successful fluoroscopic guided therapeutic left hip joint injection. This report was electronically signed by BOOKER DEE MD ??on 10/14/2020 12:20 PM . Narrative 10/14/2020 12:20 PM COMMODITY MERCHANT FLUOROSCOPIC GUIDED THERAPEUTIC INJECTION left HIP HISTORY: [...] encounter Visit Diagnoses Diagnosis Hip pain, chronic, left- Primary Primary osteoarthritis of left hip Primary localized osteoarthrosis, pelvic region and thigh Hip dysplasia (HCC) Other congenital deformity of hip (joint) Hip pain, chronic, left Primary osteoarthritis of left hip Primary localized osteoarthrosis, pelvic region and thigh Hip dysplasia (HCC) Other congenital deformity of hip (joint) documented in this encounter Care Teams Advertising Consultant Relationship Specialty Start Date End Date Ian Pollock MD [address] [facility] [address] [facility] [place] [address] PCP - General 08/21/20 05/29/23 documented as of this encounter
--- OUTSIDE RECORDS SUMMARY | 2024-10-30 06:51 | XMS_ITS | Encounter Summary ---
Author Organization [facility] Address [address] [address] Care Team Providers Care Basting Machine Operator Name Role Phone Ian Pollock MD Primary Care Provider [phone] Reason for Visit * Reason Onset Date Comments Pain Managment 09/23/2020 Encounter Details Date Type Department Care Team ([facility] st Contact Info) Description 09/23/2020 Telephone [facility] - Orthopedics [address] [place] [id number] Magdalena Weiss RN Pain Managment Social History Tobacco Use Types Packs/Day Years [...] encounter Miscellaneous Notes * Telephone Encounter - Magdalena Weiss, ALYX - 09/23/2020 5:13 PM CST Pt called requesting injection for lower back and bilateral hip pain. Pt previously received injections, which pt states has provided good pain relief. After speaking with Dr. Mora, order placed for L4/L5 Central ANGI. Updated pt on plan of care and that pt will need to follow up [address] Mora in clinic 2 weeks after injection. Pt verbalized understanding. My contact information provided to pt. Pt will call with any additional questions. O TEACHER documented in this encounter Plan of Treatment Not on file documented as of this encounter Goals Goal Patient Goal Type Associated Problems Recent Progress Patient-Stated? Author Mobility General No Stephanie Gallegos RN Note: Expected end date: *10/30/2019 The goal is to maintain or improve your mobility at the optimum level for you. Interventions: documented as of this encounter Visit Diagnoses Diagnosis Low back pain, unspecified back pain laterality, unspecified chronicity, unspecified whether sciatica present- Primary Spondylolisthesis at L4-L5 level Lumbar spondylosis Lumbosacral spondylosis without myelopathy documented in this encounter Care Teams Basting Machine Operator Relationship Specialty Start Date End Date Ian Pollock MD [address] [place] [address] PCP - General 08/21/20 05/29/23 documented as of this encounter
--- OUTSIDE RECORDS SUMMARY | 2024-10-30 06:51 | XMS_ITS | Encounter Summary ---
Author Organization [facility] Address [address] [facility] [place] [address] Care Team Providers Care Registrar Museum Name Role Phone Ian Pollock MD Primary Care Provider [phone] Reason for Visit * Reason Onset Date Comments MEDICATION REFILL 10/08/2020 Encounter Details Date Type Department Care Team (Late st Contact Info) Description 10/08/2020 Refill [facility] General Internal Medicine [address] [place] [address], [facility] [place] [id number] Ian Pollock MD [address] [place] [address] [place] [address] MEDICATION REFILL Social History Tobacco Use Types [...] COVID-19? No / Unsure 09/29/2020 10:07 AM CHAIR MAKER documented as of this encounter Functional Status [...] Telephone Encounter - Ian Pollock MD - 10/08/2020 9:42 AM CST Patient was advised to get carvedilol prescription from his wood heel flap trimmer R MAKER * Telephone Encounter - Radha Jones RN - 10/08/2020 8:23 AM CHAIR MAKER Refill Request Josafat Calvo CARVEDILOL EDELMIRA: 12/19/19 NOV scheduled: 10/08/20 LRF:01/28/20 Qty Disp: 60 # of refills: 2 TRIAMCINOLONE LRF: 11/05/19 QTY: 60G # OF REFILLS: 1 Allergies: Allergies Allergen Reactions ??? Lisinopril Anaphylaxis ??? Pcn [Penicillins] Anaphylaxis ??? Penicillin G Swelling Pended Medication Order: Requested Prescriptions Pending Prescriptions Disp Refills ??? carvedilol (COREG) 25 MG tablet 60 tablet 2 Sig: Take 1 tablet by mouth 2 times daily ??? triamcinolone acetonide (KENALOG) 0.1 % cream 60 g 1 Sig: Apply to affected area 2 times daily Apply to arms BID prn eczema R MAKER documented in this encounter Plan of Treatment [...] on filedocumented in this encounter Care Teams Registrar Museum Relationship Specialty Start Date End Date Ian Pollock MD [address] OF [facility] [place] [address] PCP - General 08/21/20 05/29/23 documented as of this encounter
--- OUTSIDE RECORDS SUMMARY | 2024-10-30 06:51 | XMS_ITS | Encounter Summary ---
Author Organization [facility] Address [address] [facility] [place] [address] Care Team Providers Care Ticket Sales Agent Name Role Phone Ian Pollock MD Primary Care Provider [phone] Reason for Visit * Reason Comments Lower Extremity Problem hip pain Encounter Details Date Type Department Care Team (Late st Contact Info) Description 10/08/2020 8:50 AM COMPRESSOR OPERATOR Video Visit [facility] General Internal Medicine [address] [place] [address], [place] [id number] Ian Pollock MD [address] [place] [address] [place] [address] Chronic midline low back pain without sciatica Social History Tobacco Use Types Packs/Day Years [...] COVID-19? No / Unsure 09/29/2020 10:07 AM COMPRESSOR OPERATOR documented as of this encounter Last Filed Vital Signs Vital Sign Reading Time Taken Comments Blood Pressure - - Pulse - - Temperature - - Respiratory Rate - - Oxygen Saturation - - Inhaled Oxygen Concentration - - Weight 107 kg (236 lb) 10/08/2020 8:06 AM COMPRESSOR OPERATOR pe r pt report Height 175.3 cm (5' 9 ) 10/08/2020 8:06 AM COMPRESSOR OPERATOR Body Mass Index 34.85 10/08/2020 8:06 AM COMPRESSOR OPERATOR documented in this encounter Functional Status Functional [...] Notes * Ian Pollock MD - 10/08/2020 8:50 AM CST Telephone Note Patient Verification & [...] Subjective Chief Complaint Patient presents with ??? Lower Extremity Problem hip pain Arthritis in back and hip. Seeing specialists in Ortho Spine and Ortho. Has DJD of spine and hip. Was told to call me for pain management. Doing some exercises at home. Gets flares every 3 months. Has not been to PT for months. Has had injections in the back. They have helped. He smokes. He has been told he needs to stop smoking to have surgery Has patches. Not ready to quit. Taking sucralfate and omepraloe from his Gi doctor Patient has specialists in: Ortho Urology Pulmonology Cardiology GI Psychiatry. Patient history reviewed in [place]. Objective No physical exam was able to be performed by phone. Data review: Labs reviewed. Assessment & Plan Chronic midline low back pain without sciatica - Plan: gabapentin (NEURONTIN) 300 MG capsule, AMB REFERRAL TO PHYSICAL THERAPY Back pain and hip pain. Referred to [facility] for pain management by Ortho Need avoid nsaias. Plan control with PT, home exercises. Gabapentin has helped him in the past. Not taking narcotics now and will plan management without starting. Has appointment for injection of hip. He tells me he will make an appointment for back injection. Not sure with whom. Smoking cessation urged. He is not ready to quit He tells me he has patches. Encounter duration: 18 minutes Patient location: Home This encounter was performed using: audio Reason for not using video for visit: patient does not have the technology The plan was reviewed with the patient and the patient confirmed understanding of the plan and all follow-up steps. Ian Pollock MD RESSOR OPERATOR documented in this encounter Plan of [...] midline low back pain without sciatica- Primary documented in this encounter Care Teams Ticket Sales Agent Relationship Specialty Start Date End Date Ian Pollock MD [address] [place] [address] PCP - General 08/21/20 05/29/23 documented as of this encounter
--- OUTSIDE RECORDS SUMMARY | 2024-10-30 06:51 | XMS_ITS | Encounter Summary ---
Author Organization [facility] Address [address] [place] [address] Care Team Providers Care Barrel Loader And Cleaner Name Role Phone Ian Pollock MD Primary Care Provider Encounter Details Date Type Department Care Team (Late st Contact Info) Description 04/27/2020 9:47 AM CDT - 04/27/2020 11:59 PM CDT Hospital Encounter [facility] DIAGNOSTIC RAD [facility] [address] [facility] [place] [address] Silvio Bain MD [address] [place] [phone] Discharge Disposition: Home or Self Care Social [...] (PROVENTIL;VENTOLIN;[place] OAIR) 108 (90 Base) MCG/ACT inhaler Inhale [...] fluticasone propionate (FLONASE) 50 MCG/ACT nasal spray [place] 2 sprays into each nostril once daily [...] eczema 60 g 1 11/05/2019 10/08/2020 Umeclidinium [place] (INCRUSE ELLIPTA IN) 021 ziprasidone (GEODON) 20 [...] Name Priority Date/Time Associated Diagnosis Comments XR PELVIS W LEFT HIP 2VW Routine 04/27/2020 9:53 AM CDT Low back pain, unspecified back pain laterality, unspecified chronicity, unspecified whether sciatica present documented in this encounter Results * XR PELVIS W LEFT HIP 2VW (04/27/2020 9:53 AM CDT) Anatomical Region Laterality Modality Pelvis Radiographic Joann ging 04/27/2020 12:1 3 PM CDT Impressions 04/27/2020 1:27 PM CDT IMPRESSION: Mild degenerative changes in the both hip joints. Report dictated by Fabrizio Aparicio M.D. (president and chief operating officer). Dr. BOOKER Duong MD have personally reviewed [...] joints. Report dictated by Fabrizio Aparicio M.D. (president and chief operating officer). Dr. BOOKER Duong MD have personally reviewed and interpreted this examination/study. This report was electronically signed by BOOKER DEE MD on04/27/2020 1:27 PM . Silvio Bain MD DIAGNOSTIC IMAGI NG ORDERABLES documented in this encounter Visit Diagnoses Diagnosis Low back pain, unspecified back pain laterality, unspecified chronicity, unspecified whether sciatica present documented in this encounter Care Teams Barrel Loader And Cleaner Relationship Specialty Start Date End Date Ian Pollock MD PCP - General 12/13/19 05/25/20 documented as of this encounter
--- OUTSIDE RECORDS SUMMARY | 2024-10-30 06:51 | XMS_ITS | Encounter Summary ---
Author Organization [facility] Address [address] [facility] [address] Care Team Providers Care Cotton Broker Name Role Phone Ian Pollock MD Primary Care Provider [phone] Reason for Visit * Reason Onset Date Comments Results 04/28/2020 Encounter Details Date Type Department Care Team (Late st Contact Info) Description 04/28/2020 Telephone [facility] Pulmonary, Critical Care and Sleep Medicine [address] [place] [address] Agnieszka Haas MD [address] [place] [address] Results Social History Tobacco Use Types Packs/Day [...] Telephone Encounter - Agnieszka Haas MD - 04/28/2020 5:01 PM CDT Called patient to discuss the sputum culture results. Left a voicemail. Agnieszka Haas MD Pulmonary / Critical Care Fellow Division of Pulmonary, Critical Care, & Sleep Medicine [facility] Beeper #:[phone] documented in this encounter Plan of Treatment [...] on filedocumented in this encounter Care Teams Cotton Broker Relationship Specialty Start Date End Date Ian Pollock MD PCP - General 12/13/19 05/25/20 documented as of this encounter
--- OUTSIDE RECORDS SUMMARY | 2024-10-30 06:51 | XMS_ITS | Encounter Summary ---
Author Organization [facility] Address [address] [facility] [place] [address] Care Team Providers Care Surveying Crew Stake Runner Name Role Phone Unavailable Primary Care Provider Unavailabl e Reason for Visit * Reason Comments Refill Request Encounter Details Date Type Department Care Team (Late st Contact Info) Description 07/17/2020 Refill [facility] Pul[facility], Critical Care and Sleep Medicine [address] [place] [address] Agnieszka Haas MD [address] [place] [address] Refill Request Social History Tobacco Use Types [...] Telephone Encounter - Shari Kauffman RN - 07/17/2020 5:04 PM CDT See request documented in this encounter Plan of Treatment [...]
--- OUTSIDE RECORDS SUMMARY | 2024-10-30 06:51 | XMS_ITS | Encounter Summary ---
Author Organization [facility] Address [address] [facility] [place] [address] Care Team Providers Care Mortgage Loan Processor Name Role Phone Ian Pollock MD Primary Care Provider Reason for Visit * Reason Onset Date Comments Cough 04/14/2020 Encounter Details Date Type Department Care Team (Late st Contact Info) Description 04/14/2020 Telephone [facility] Pul[facility], Critical Care and Sleep Medicine [address] [place] [address] Shari Kauffman RN Cough Social History Tobacco Use Types Packs/Day [...] encounter Miscellaneous Notes * Addendum Note - Lynn Haas MD - 04/14/2020 3:47 PM CDTAddended by: LYNN HAAS on: 04/14/2020 03:47 PM Modules accepted: Orders * Telephone Encounter - Shari Kauffman RN - 04/14/2020 12:38 PM CDT Patient called. Finished prednisone last Monday, states he continues to cough and increased congestion. Thinks he may need more pednisone. Will route. Called patient back. He reports cough productive of white sputum. Denies wheezing, hemoptysis, fever/.Shortness of breath is at baseline. He was tested for COVID-19 this AM at the [facility] department. He is awaiting the results. He finished his prednisone course for 5 days on Monday. Will prescribe dextromethorphan for symptomatic control. Advised patient to go to the ED if his symptoms worsen. He has an appointment with me for next week. Lynn Haas MD Pulmonary / Critical Care Fellow Division of Pulmonary, Critical Care, & Sleep Medicine [facility] Beeper #:[phone] documented in this encounter Plan of Treatment [...] on filedocumented in this encounter Care Teams Mortgage Loan Processor Relationship Specialty Start Date End Date Ian Pollock MD PCP - General 12/13/19 05/25/20 documented as of this encounter
--- OUTSIDE RECORDS SUMMARY | 2024-10-30 06:51 | XMS_ITS | Encounter Summary ---
Author Organization [facility] Address [address] [facility] [place] [address] Care Team Providers Care Hooking Machine Operator Name Role Phone Ian Pollock MD Primary Care Provider [phone] Reason for Visit * Reason Onset Date Comments Forms 08/21/2020 Encounter Details Date Type Department Care Team ([facility] Contact Info) Description 08/21/2020 Telephone [facility] General Internal Medicine [address] [place] [address], [place] [phone] Ian Pollock MD [address] [place] [address] [place] [address] Forms Social History Tobacco Use Types Packs/Day [...] Telephone Encounter - Anya Conway RN - 08/24/2020 12:01 PM CDT Called the pt and relayed message from pcp: I have not seen the patient for any of the conditions on the form and cannot complete it. He needs to have his specialists who care for the condition he has that requires transportation. Pt verbalized understanding. * Telephone Encounter - Ian Pollock MD - 08/21/2020 10:57 AM CDT Please call I have not seen the patient for any of the conditions on the form and cannot complete it He needs to have his specialists who care for the condition he has that requires transportation. * Telephone Encounter - Imelda Hoff LPN - 08/21/2020 10:43 AM CDT Form printed from media and placed in providers box. * Telephone Encounter - Janice Conn RN - 08/21/2020 10:11 AM CDT Pt calling in to say that it is the time that his Insurance Company [employer] sends Providers a formthat states pt's need for Transportation, that pt request for Dr. Pollock to sign, date, and fax backto company. No form as yet evident in Media, please be aware in anticipation of its arrival. Plan: Sending to Dr. Pollock Note: Since form not seen in Media, pt will be calling [facility] again to refax. documented in this encounter Plan of Treatment [...] on filedocumented in this encounter Care Teams Hooking Machine Operator Relationship Specialty Start Date End Date Ian Pollock MD [address] [place] [address] PCP - General 08/21/20 05/29/23 documented as of this encounter
--- OUTSIDE RECORDS SUMMARY | 2024-10-30 06:52 | XMS_ITS | Encounter Summary ---
Author Organization [facility] Address [address] [place] [address] Care Team Providers Care Machining And Assembly Supervisor Name Role Phone Monica Tellez APRN-NIMCO Primary Care Provi cristobal Reason for Visit * Reason Comments Follow-up Encounter Details Date Type Department Care Team ([facility] Contact Info) Description 09/13/2019 9:40 AM MANAGER AGRICULTURE Office Visit [facility] General Internal Medicine [address] [facility] [address] [place] [address] Monica Tellez APRN-SHINGLE WEAVER [address] [facility] [place] [id number] Essential hypertension (Primary Dx); Tobacco abuse; Abnormal weight loss; Numbness and tingling of foot; Need for hepatitis C screening test Social History Tobacco Use Types Packs/Day Years [...] Sign Reading Time Taken Comments Blood Pressure 140/100 09/13/2019 9:46 AM MANAGER AGRICULTURE Pulse 82 09/13/2019 9:46 AM MANAGER AGRICULTURE Temperature 36.3 ??C (97.3 ??F) 09/13/2019 9:46 AM CS T Respiratory Rate - - Oxygen Saturation 98% 09/13/2019 9:46 AM MANAGER AGRICULTURE Inhaled Oxygen Concentration - - Weight 107.5 kg (237 lb) 09/13/2019 9:46 AM MANAGER AGRICULTURE Height - - Body Mass Index 35 08/26/2019 11:24 AM CDT documented in this encounter Functional [...] this encounter Patient Instructions * Patient Instructions* Liudmila Welch - 09/13/2019 9:48 AM MANAGER AGRICULTURE How to Contact Us Between Office Visits [...] to be seen. Please call us at [phone], option 1 thenoption 1 in the morning you would like to be seen. For scheduling routine appointments, requesting refills or leaving a message for your doctor, the office phone is [phone]. You will be given options to get to the assistance you need. Phone lines are open from 8:00 am to4:30 pm Monday through Monday. All prescription refills must be requested during regular office phone hours. Our fax number is [phone]. After hours urgent calls that cannot wait untill phone lines are open on the next business day are given to the General Internal Medicine physician regional recruiter. Please call [phone]. Identify yourself as a patient in our practice and give the concrete pile driver operator your doctor's name. The concrete pile driver operator will contact the physician regional recruiter. You can generally expect a return call within 30 minutes. On weekends, physicians are seeing hospitalized patients and there maybe a longer wait. Visit our website at [email or web address] for information about our practice and an interactive health encyclopedia. Our clinic's missed appointment policy is: - Patients with 3 consecutively missed appointments OR 3 missed appointments in a 12 month period will no longer be seen by General Internal Medicine. They will be asked to seek Primary Care outside of [facility]. - A missed appointment is defined as: * An appointment cancelled less than 24 hours in advance *Arriving to a scheduled appointment too late to be seen (Patients who arrive to clinic later than their scheduled appointment time may not be seen) * Not showing up for an appointment GER AGRICULTURE documented in this encounter Progress Notes * Monica Tellez, RING MAKER-SHINGLE WEAVER - 09/13/2019 9:54 AM CST HPI: Josafat Calvo is a 58 year old male is here for sooner appt due to lips swelling up. Went to [facility]. Lisinopril was DC'd. This has happened to him about 5-6 yr ago but not sure if that time if due to ACEI. He did not have any SOB with either of these episodes. CC: Left lateral calf pain and right great toe numbness. Patient is very concerned about these 2 problems that he claims to have had for about 3-4 weeks (claims forgot to tell me on last visit here) He thinks he is loosing a lot of weight. He does not have scale at home.. He is very afraid of cancer and know my body and afraid something bad may be going on. 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 No precipitating events. Admits he did not take anticoagulation therapy after DC from hospital. Hip and back pain--had bilateral hip injections recently, Did not help as much as in past . Does not want any back surgery. Has had epidural injections in past but results do not last long--so currently does not want additional injections. He was told pain management might help--but with his [employer] insurance, there is only 1 pain management office he can go to over in [place]. . Patient Active Problem List: Major depressive disorder, single episode, severe without psychotic features--sees psychiatrist COPD exacerbation--continues to smoke-- trying to cut down Panlobular emphysema Opacity of lung on imaging study Tobacco abuse Essential hypertension Past History and Surgical History Reviewed under History tab -- Lisinopril -- Anaphylaxis -- Pcn [Penicillins] -- Anaphylaxis -- Penicillin G -- Swelling Current Outpatient Medications: buPROPion SR 12hr (WELLBUTRIN-SR) 150 MG tablet Disp: Rfl: 0 carvedilol (COREG) 25 MG tablet Take 1 Tab by mouth 2 times daily Reasons: High Blood Pressure of Unknown Cause Disp: 0 Rfl: 0 hydrOXYzine pamoate (VISTARIL) 50 MG capsule Take 50 mg by mouth Disp: Rfl: ibuprofen (MOTRIN) 600 MG tablet Take 1 tablet by mouth every 8 hours as needed for Pain Disp: 90 tablet Rfl: 3 omeprazole (PRILOSEC) 40 MG capsule 40 mg Disp: Rfl: 5 Pseudoephedrine-Guaifenesin (MUCINEX D PO) Disp: Rfl: spironolactone (ALDACTONE) 50 MG tablet Take 1 tablet by mouth once daily Disp: 30 tablet Rfl: 11 triamcinolone acetonide (KENALOG) 0.1 % cream Apply to affected area 2 times daily Apply to arms BID prn eczema Disp: 60 g Rfl: 0 Umeclidinium [place] (INCRUSE ELLIPTA IN) Disp: Rfl: VENTOLIN HFA 108 (90 BASE) MCG/ACT inhaler INL 2 PFS PO QID PRN Disp: Rfl: 0 No current facility-administered medications for this visit. Review of Systems Constitutional: Positive for weight loss. HENT: Negative. Eyes: Negative. Gastrointestinal: Negative. Genitourinary: Negative. Musculoskeletal: Positive for back pain and myalgias. Skin: Negative. Neurological: Positive for sensory change. Right big toe Psychiatric/Behavioral: Positive for depression. Hx of bipolar Family and Social History Reviewed under History Tab OBJECTIVE: BP 140/100 Pulse 82 Temp 97.3 ??F (36.3 ??C) (Oral) Wt 237 lb (107.5 kg) SpO2 98% BMI 35 kg/m2 He appears worried--thinks something is going on with his body. Upset that we never got records from previous doctor in [place] that were requested 2 mo ago. Lungs--clear A&P Cor--S1 S2 RRR no murmurs Abd--soft, non tender, no masses or organomegaly, + BS. Ext--no edema. Left leg--no swelling, redness, tenderness or warmth on exam. Feet--clean--nails cut neatly. No toe abnormalities noted. Wt Readings from Last 3 Encounters: 09/13/19 237 lb (107.5 kg) 08/26/19 239 lb (108.4 kg) 08/16/19 241 lb (109.3 kg) Recent Labs Component Name 07/25/19 0935 07/25/19 SODIUM 136 - POTASSIUM 4.7 4.7 CHLORIDE 105 - CO2 24 - BUN 15 - CREATININE 0.88 0.88 GLUCOSE 86 - CALCIUM 9.5 - ALT 20 20* ALKPHOS 108 - AST 17 17 TBIL 0.3 - TPROT 6.7 - EGFR 95 - EGFRAFR 111 - No results for input(s): TSH in the last 55403 hours. Recent Labs Component Name 07/25/19 0935 07/25/19 HGBA1C 5.7* 5.7* ASSESSMENT/PLAN Hypertension--off of Lisinopril due to facial swelling. Start Amlodipine 5 mg daily. Continue Carvedilol Left lateral leg pain--no evidence of DVT. Reassurance. Continue with Ibuprofen 400-600 mg q 8 hr prn. Also encouraged to try Biofreeze or Aspercream to leg. Return if swelling occurs. Right great toe numbness--etiology unknown. Reassured this will probably resolve. Weight loss--he has lost a few lbs but does not seem significant. Encouraged to follow. Encouraged to buy a scale so that he can monitor at home. Told him weight loss was good and that he needed to be trying to eat healthy, restrict carbs and calories and Na. He feels he is loosing weight too quickly without really trying. Hips and back pain--MRI's in past. Recent bilateral hip injections without any prolonged benefit. Not interested in back or hip surgery. Upset we do not have records from previous PCP. Thinks MRI reports are in those records. Would like to go to Pain Management.--told him to contact his insurance. Limited benefits with [facility]han prn sooner. Monica Tellez ANP GER AGRICULTURE documented in this encounter Plan of Treatment [...] Comments BASIC METABOLIC PANEL (CALCIUM TOTAL) Routine 09/19/2019 9:17 AM MANAGER AGRICULTURE Essential hypertension VITAMIN B12 Routine 09/19/2019 9:17 AM MANAGER AGRICULTURE Numbness and tingling of foot TSH Routine 09/19/2019 9:17 AM MANAGER AGRICULTURE Abnormal weight loss documented in this encounter Results * (ABNORMAL) BASIC METABOLIC PANEL (CALCIUM TOTAL) (09/19/2019 9:17 AM MANAGER AGRICULTURE) Glucose 114(H) 65 - 99 mg/dL [facility] Comment: ? Fasting reference interval For someone without known diabetes, a glucose value between 100 and 125 mg/dL is consistent with prediabetes and should be confirmed with a follow-up test. BUN 8 7 - 25 mg/dL [facility] Creatinine 0.90 0.70 - 1.33 mg/dL [facility] Comment: For patients >49 years of age, the reference limit for Creatinine is approximately 13% higher for people identified as -[place]ib[place]. eGFR by MDRD 94 > OR = 60 mL/min/1 .73m2 [facility] eGFR by MDRD 109 > OR = 60 mL/min/1 .73m2 [facility] BUN/Creatinine Ratio NOT APPLICABLE 6 - 22 (calc) [facility] Sodium 136 135 - 146 mmol/L [facility] Potassium 4.3 3.5 - 5.3 mmol/L [facility] Chloride 104 98 - 110 mmol/L [facility] CO2 22 20 - 32 mmol/L [facility] Calcium 9.8 8.6 - 10.3 mg/dL [facility] Comment: Test Performed at: [facility] [address] [place], [place] ??[phone] PRUDENCIO ALDANA DO,MPH Blood BLOOD SPECIMEN / Unknown 09/19/2019 9:17 AM MANAGER AGRICULTURE 09/19/2019 9:21 AM MANAGER AGRICULTURE Monica DAMON LAB - CHEMI STRY ORDERABLES Performing Organization Address [facility] Co de Phone Number [facility] [id number] [place] [phone] * TSH (09/19/2019 9:17 AM MANAGER AGRICULTURE) TSH 0.66 0.40 - 4.50 mIU/L [facility] Comment: Test Performed at: [facility] [place] [address] [place] ??[phone] PRUDENCIO ALDANA DO,MPH Blood BLOOD SPECIMEN / Unknown 09/19/2019 9:17 AM MANAGER AGRICULTURE 09/19/2019 9:21 AM MANAGER AGRICULTURE Monica DAMON LAB - CHEMI STRY ORDERABLES Performing Organization Address [facility] de Phone Number [facility] [phone] [place] [phone] * VITAMIN B12 (09/19/2019 9:17 AM MANAGER AGRICULTURE) Vitamin B12 656 200 - 1100 pg/mL [facility] Comment: Test Performed at: [facility] [place] [address] [place], [place] ??[phone] PRUDENCIO ALDANA DO,MPH Blood BLOOD SPECIMEN / Unknown 09/19/2019 9:17 AM MANAGER AGRICULTURE 09/19/2019 9:21 AM MANAGER AGRICULTURE Monica DAMON LAB - CHEMI STRY ORDERABLES Performing Organization Address [facility] [place] [place] [address] documented in this encounter Visit Diagnoses Diagnosis Essential hypertension- Primary Tobacco abuse Tobacco use disorder Abnormal weight loss Loss of weight Numbness and tingling of foot Disturbance of skin sensation Need for hepatitis C screening test Special screening examination for other specified viral diseases documented in this encounter Care Teams Machining And Assembly Supervisor Relationship Specialty Start Date End Date Monica Tellez APRN-CNP PCP - General 07/03/19 11/13/19 documented as of this encounter
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
--- OUTSIDE RECORDS SUMMARY | 2024-10-30 06:52 | XMS_ITS | Encounter Summary ---
Author Organization [facility] Address [address] [place] [address] Care Team Providers Care Wooden Shade Hardware Installer Name Role Phone Monica Tellez APRN-HOP GROWER Primary Care Provi cristobal Encounter Details Date Type Department Care Team (Late st Contact Info) Description 11/04/2019 12:53 PM STRADDLE BUGGY OPERATOR - 11/04/2019 11:59 PM STRADDLE BUGGY OPERATOR Hospital Encounter [facility] DIAGNOSTIC RAD CSM 1L [address] [facility] [facility] [place] [id number] April Mora MD [address] [facility] [place] [address] Discharge Disposition: Home or Self Care Social [...] Sig Dispensed Refills Start Date End Date albuterol HFA (PROVENTIL;VENTOLIN;PRO AIR) 108 (90 Base) MCG/ACT inhaler Inhale 2 puffs by mouth every 4 hours as needed for Wheezing 1 Inhaler 6 10/17/2019 05/08/2020 amLODIPine (NORVASC) 5 MG tablet Take 1 tablet by mouth once daily 30 tablet 3 09/13/2019 11/05/2019 buPROPion SR 12hr (WELLBUTRIN-SR) 150 MG tablet 0 08/09/2018 12/10/2019 carvedilol (COREG) 25 MG tablet TAKE 1 TABLET BY MOUTH TWICE DAILY 60 tablet 2 10/29/2019 01/28/2020 gabapentin (NEURONTIN) 300 MG capsule 10/07/2019 10/08/2020 hydrOXYzine pamoate (VISTARIL) 50 MG capsule Take 50 mg by mouth 10/08/20 20 ibuprofen (MOTRIN) 600 MG tablet Take 1 tablet by mouth every 8 hours as needed for Pain 90 tablet 3 07/11/2019 10/08/2020 lamoTRIgine (LAMICTAL) 25 MG tablet TK 2 TS PO BID 2019 09/29/2020 latanoprost (XALATAN) 0.005 % ophthalmic solution 01/25/2019 01/19/2022 lisinopril (PRINIVIL; ZESTRIL) 10 MG tablet 10/24/20192019 meloxicam (MOBIC) 7.5 MG tablet 03/11/2019 06/17/2020 omeprazole (PRILOSEC) 40 MG capsule 40 mg 5 05/14/2019 04/21/2020 predniSONE (DELTASONE) 50 MG tablet TK 1 T PO D 10/11/2019 12/10/2019 Pseudoephedrine-Guaifen esin (MUCINEX D PO) 09/12/20 22 raNITIdine (ZANTAC) 300 MG tablet 01/25/2019 10/08/2020 spironolactone (ALDACTONE) 50 MG tablet Take 1 tablet by mouth once daily 30 tablet 11 07/11/2019 01/28/2020 tamsulosin (FLOMAX) 0.4 MG capsule TAKE 1 CAPSULE(0.4 MG) BY MOUTH DAILY 10/24/2019 09/29/2020 tamsulosin (FLOMAX) 0.4 MG capsule 10/24/2019 11/05/2019 triamcinolone acetonide (KENALOG) 0.1 % cream Apply to affected area 2 times daily Apply to arms BID prn eczema 60 g 08/16/2019 11/05/2019 Umeclidinium Leo (INCRUSE ELLIPTA IN) 021 ziprasidone (GEODON) 20 [...] Name Priority Date/Time Associated Diagnosis Comments XR SPINE ENTIRE 2 OR 3VW Routine 11/04/2019 1:06 PM STRADDLE BUGGY OPERATOR Back pain, unspecified back location, unspecified back pain laterality, unspecified chronicity documented in this encounter Results * XR SPINE ENTIRE 2 OR 3VW (11/04/2019 1:06 PM STRADDLE BUGGY OPERATOR) Anatomical Region Laterality Modality Radiographic Joann ging 11/04/2019 3:25 PM STRADDLE BUGGY OPERATOR Impressions 11/04/2019 3:32 PM STRADDLE BUGGY OPERATOR FINDINGS/IMPRESSION: There is no evidence of scoliosis. There is no coronal/sagittal imbalance. Pelvic tilt, left greater than right, measures approximately 1.5 cm. There is mild to moderate degenerative disc and joint disease. There is no evidence of vertebral subluxation on the sagittal view. Dictated by Harry Gomez MD (engineering vice president). I, Dr. JASE MENDOZA have personally reviewed and interpreted this examination/study. This report was electronically signed by JASE MENDOZA ??on 11/04/2019 3:32 PM . Narrative 11/04/2019 3:32 PM STRADDLE BUGGY OPERATOR EXAMINATION: XR SPINE ENTIRE 2 OR 3VW HISTORY: M54.9: Back pain, unspecified back location, unspecified back pain laterality, unspecified chronicity COMPARISON: No prior study is available for comparison at the time of this dictation. Procedure Note Jase Mendoza DO - 11/04/2019 EXAMINATION: XR SPINE [...] sagittal view. Dictated by Harry Gomez MD (engineering vice president). I, Dr. JASE MENDOZA have personally reviewed and interpreted this examination/study. This report was electronically signed by JASE MENDOZA on 11/04/2019 3:32 PM . April Mora MD DIAGNOSTIC IMAGING O RDERABLES documented in this encounter Visit Diagnoses Diagnosis Back pain, unspecified back location, unspecified back pain laterality, unspecified chronicity documented in this encounter Care Teams Wooden Shade Hardware Installer Relationship Specialty Start Date End Date Monica Tellez APRN-HOP GROWER PCP - General 07/03/19 11/13/19 documented as of this encounter
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
--- OUTSIDE RECORDS SUMMARY | 2024-10-30 06:52 | XMS_ITS | Encounter Summary ---
Author Organization [facility] Address [address] [place] [address] Care Team Providers Care Desk Maker Name Role Phone Ish Buchanan MD Primary Care Provider [phone] Reason for Visit * Reason Onset Date Comments MEDICATION REFILL 09/04/2018 Encounter Details Date Type Department Care Team (Late st Contact Info) Description 09/04/2018 Refill [facility] [address] [place] [address] Edith Hemphill MD [address] [place] [address] MEDICATION REFILL Social History Tobacco Use Types Packs/Day Years Used Date Smoking Tobacco: Every Day Cigarettes 1 25 Smokeless Tobacco: Never Comments:Smoked for 30 [...] on file documented as of this encounter Visit Diagnoses Not on filedocumented in this encounter Care Teams Desk Maker Relationship Specialty Start Date End Date Ish Buchanan MD [address] [address] PCP - General 08/15/18 06/17/19 documented as of this encounter
--- OUTSIDE RECORDS SUMMARY | 2024-10-30 06:52 | XMS_ITS | Encounter Summary ---
Author Organization [facility] Address [address] [place] [address] Care Team Providers Care Shaker Out Name Role Phone Ish Buchanan MD Primary Care Provider [phone] Reason for Visit * Reason Comments Low Back Pain LSpine Pain Knee left Encounter Details Date Type Department Care Team (Latest Contact Info) Description 10/03/2018 9:45 AM PROBATION AND PAROLE OFFICER Office Visit [facility] Orthopedic Surgery [address] [place] [address] Alexsandra Rosa PA-C [address] [place] [address] Osteoarthritis of spine with radiculopathy, lumbar region (Primary Dx) Social [...] - Inhaled Oxygen Concentration - - Weight 115.2 kg (254 lb) 10/03/2018 10:01 AM PROBATION AND PAROLE OFFICER Height 175.3 cm (5' 9 ) 10/03/2018 10:01 AM PROBATION AND PAROLE OFFICER Body Mass Index 37.51 10/03/2018 10:01 AM PROBATION AND PAROLE OFFICER documented in this encounter Functional Status Functional [...] * Patient Instructions* Alexsandra Rosa PA-C - 10/03/2018 10:53 AM PROBATION AND PAROLE OFFICER [facility] Department of Orthopaedic Surgery Orthopaedic Clinic Discharge Form Josafat Sarina Umesh 10/03/2018 Thank you for coming in to see us today for your diagnosis of: Osteoarthritis of spine with radiculopathy, lumbar region - Plan: AMB EPIDURAL STEROID INJECTION Activity Restrictions: as tolerated Medications Prescribed: methocarbamol Special Studies/Labs to be completed: schedule bilateral L4-5 transformainal epidural steroid injection We recommend that you try the following for your injury: physical therapy exercises, anti-inflammatory medications, corticosteroid injections, tylenol, quitsmoking, activity modification, weight loss and icing 20 minutes at a time 3 to 5 times daily Recommend 2000 units Vitamin D daily for [...] NSAIDs while taking this medication. Follow up: after injection Josafat Calvo had a clinic appointment on 10/03/2018. Please contact our office to make an appointment if your symptoms are not improving, or if something about your condition significantly changes. [facility] Orthopaedic office contact information: [facility] ; select option 4 to leave voicemail with Abechrissy Orozco [address] [place] [phone] [facility] [address] [place] [address], [address] [id number] ATION AND PAROLE OFFICER documented in this encounter Progress Notes * Alexsandra Rosa PA-C - 10/03/2018 10:31 AM CST [facility] [address] [place] [id number] Dept: [phone] Today we had the pleasure of seeing Josafat Calvo in our [facility] Spine Surgery Clinic for low backpain Josafat Calvo is a 57 y.o. male who has back pain. Pain is located to the lumbar spine and is associated with muscle spasms in the posterior thighs. The patient first noted symptoms 1+ years ago. Itwas related to NKI. He denies bowel/bladder. Symptoms are exacerbated by standing, sneezing, sleeping. Factors which relieve the pain include lean forward. he is taking meloxicam for pain.he ambulates with none. he has done physical therapy. he has not done steroid injection. There are not symptomsof bowel or bladder dysfunction. smokes 10 cigarettes/day Past Medical History: Diagnosis Date ??? Arthritis ??? Bipolar I disorder, most recent episode (or current) unspecified ??? Carpal tunnel syndrome ??? COPD (chronic obstructive pulmonary disease) 2009 ??? Generalized anxiety disorder ??? History of drug abuse ??? Hypertension ??? Nondependent abuse of drugs Past Surgical History: Procedure Laterality Date ??? ENDOSCOPY, COLON, DIAGNOSTIC ??? HAND SURGERY Left ??? Knee Replacement Right Family History Problem Relation Age of Onset ??? Cancer - Colon Mother ??? Heart Failure Father ??? Hypertension Sister ??? Cancer - Lung Brother 53 History Smoking Status ??? Current Every Day Smoker ??? Packs/day: 1.00 ??? Years: 25.00 ??? Types: Cigarettes Smokeless Tobacco ??? Never Used Comment: Smoked for 30 years. Focused ROS includes: Enodcrine Diabetes Mellitus: Not Applicable Thyroid disorders: no Pulmonary COPD: yes Asthma: yes Other: negative Cardiac History of CHF: no History of MT: no Previous PCI / PTCA: no Previous Cardiac Surgery: no Hypertension requires meds: yes Vascular Known peripheral vascular disease: no Central Nervous System History of TIA's: no CVA: No History of Cancer of any kind: no Bleeding disorders: no Other significant health issues are: negative Physical Examination Vitals: 10/03/18 1001 Weight: 254 lb (115.2 kg) Height: 5' 9 (1.753 m) Estimated body mass index is 37.51 kg/(m^2) as calculated from the following: Height as of this encounter: 5' 9 (1.753 m). Weight as of this encounter: 254 lb (115.2 kg). The patient is able to ambulate with none. The patient is able to stand erect. [...] Patellar reflexes are 0/4, Achilles reflexes are 0/4.Blanton's is negative. Romberg testing is negative. Gait is Normal, toe walk is normal and heel walk is normal. Tandem gait testing is negative Radiographs were reviewed by me in office: plain films lumbar spine: no fracture. Grade 1 anterolisthesis L3-4 and L4-5. Dis degeneration with facet arthropathy and MRI lumbar spine (08/16): central canal narrowing at L4-5 with bilateral foraminal narrowing . Impression: Lumbar spondylosis with radiculopathy Grade 1 anterolisthesis L3-4 and L4-5 Plan: The patient was counseled as to his diagnosis and demonstrated understanding. 1. Restrictions: none 2. Schedule bilateral L4-5 transforaminal epidural steroid injection 3. continue physical therapy exercises at home as tolerated. Discussed importance of developing a home exercise program 4. Medication prescribed: flexeril. Continue meloxicam as needed for pain. 5. Patient was counseled as to the [...] the use of ambulatory assistive devices. 6. F/U after injection Alexsandra Rosa PA-C ATION AND PAROLE OFFICER * Alexsandra Rosa PA-C - 10/03/2018 10:29 AM CST . ATION AND PAROLE OFFICER documented in this encounter Plan of Treatment Not on file documented as of this encounter Visit Diagnoses Diagnosis Osteoarthritis of spine with radiculopathy, lumbar region- Primary documented in this encounter Care Teams Shaker Out Relationship Specialty Start Date End Date Ish Buchanan MD [address] [place] [address] PCP - General 08/15/18 06/17/19 documented as of this encounter
--- OUTSIDE RECORDS SUMMARY | 2024-10-30 06:52 | XMS_ITS | Encounter Summary ---
Author Organization [facility] Address [address] [address] [place] [address] Care Team Providers Care Welder Operator Name Role Phone Monica Tellez APRN-INTERNETWORKING TECHNICIAN Primary Care Provi cristobal Reason for Visit * Reason Onset Date Comments Referral 09/17/2019 pain specialist Encounter Details Date Type Department Care Team (Late st Contact Info) Description 09/17/2019 Telephone [facility] Internal Medicine [address] [facility] [address] [place] [address] Monica Tellez APRN-INTERNETWORKING TECHNICIAN [address] [facility] [place] [id number] Referral (pain specialist) Social History Tobacco Use Types Packs/Day Years [...] encounter Miscellaneous Notes * Telephone Encounter - Monica Tellez APRN-CNP - 09/18/2019 5:19 PM DIESEL MACHINIST He would like to go to pain management. He has [employer] insurance and don't know who takes that insurance. I told him to call his insurance company. MARISOL Díaz EL MACHINIST * Telephone Encounter - Shari Silvestre RN - 09/17/2019 10:57 AM CST Do not see a referral to a pain specialist. Did you want to place referral? EL MACHINIST * Telephone Encounter - Maria Isabel William RN - 09/17/2019 9:56 AM CST Patient calling about pain specialist referral Martijay Ortizgeovanna [phone] Please send referral to Pain Specialist EL MACHINIST documented in this encounter Plan of Treatment [...] on filedocumented in this encounter Care Teams Welder Operator Relationship Specialty Start Date End Date Monica Tellez APRN-CNP PCP - General 07/03/19 11/13/19 documented as of this encounter
--- OUTSIDE RECORDS SUMMARY | 2024-10-30 06:52 | XMS_ITS | Encounter Summary ---
Author Organization [facility] Address [address] [facility] [place] [address] Care Team Providers Care Escalator Constructor Name Role Phone Ish Buchanan MD Primary Care Provider [phone] Encounter Details Date Type Department Care Team (Late st Contact Info) Description 05/20/2019 Orders Only [facility] [address] [facility], [place] [address] Alexsandra Rosa PA-C [address] [place] [address] Pain of both hip joints Social History Tobacco Use Types Packs/Day Years [...] on file documented as of this encounter Results * XR PELVIS W BILAT HIP 2VW (05/20/2019 11:09 AM CDT) Anatomical Region Laterality Modality Pelvis, Lower Extremity Radiogra phic Imaging 05/20/2019 1:11 PM CDT Impressions 05/20/2019 1:43 PM CDT IMPRESSION: Mild degenerative change without joint space narrowing. Dictated by Georgie Huntley MD (residential sales). Dr. BOOKER Duong MD have personally reviewed [...] narrowing. Dictated by Georgie Huntley MD (residential sales). Dr. BOOKER Duong MD have personally reviewed and interpreted this examination/study. This report was electronically signed by BOOKER DEE MD on05/20/2019 1:43 PM . Alexsandra Rosa PA-C DIAGNOSTIC IMAG ING ORDERABLES documented in this encounter Visit Diagnoses Diagnosis Pain of both hip joints- Primary Pain of both hip joints documented in this encounter Care Teams Escalator Constructor Relationship Specialty Start Date End Date Ish Buchanan MD [address] [place] [address] PCP - General 08/15/18 06/17/19 documented as of this encounter
--- OUTSIDE RECORDS SUMMARY | 2024-10-30 06:52 | XMS_ITS | Encounter Summary ---
Author Organization [facility] Address [address] [facility] [facility] [place] [address] Care Team Providers Care Pipe Coverer Helper Name Role Phone Ish Buchanan MD Primary Care Provider [phone] Encounter Details Date Type Department Care Team (Late st Contact Info) Description 02/21/2019 Orders Only [facility] [address] [facility], [place] [address] Alexsandra Rosa PA-C [address] [place] [address] Back pain, unspecified back location, unspecified back pain laterality, unspecified chronicity Social History Tobacco Use Types Packs/Day Years [...] as of this encounter Results * XR THORACIC SPINE 2VW (02/21/2019 11:25 [...] back location, unspecified back pain laterality, unspecified chronicity- Primary Back pain, unspecified back location, unspecified back pain laterality, unspecified chronicity documented in this encounter Care Teams Pipe Coverer Helper Relationship Specialty Start Date End Date Ish Buchanan MD [address] [facility] [address] [place] [address] PCP - General 08/15/18 06/17/19 documented as of this encounter
--- OUTSIDE RECORDS SUMMARY | 2024-10-30 06:52 | XMS_ITS | Encounter Summary ---
Author Organization [facility] Address [address] [facility] [place] [address] Care Team Providers Care Track Supervisor Name Role Phone Ish Buchanan MD Primary Care Provider [phone] Link, Bridget Segura DO Primary Care Provider [phone] Monica Tellez LUMBER SALES SUPERVISOR-CEMENT CONVEYOR OPERATOR Primary Care Provi cristobal Ian Pollock MD Primary Care Provider [phone] Ian Pollock MD Primary Care Provider [phone] Reason for Visit * Reason Onset Date Comments Future Appointment 2018 Encounter Details Date Type Department Care Team (Late st Contact Info) Description 2018 Telephone [facility] [address] [place] [address] Alexsandra Rosa PA-C [address] [place] [address] Future Appointment Social History Tobacco Use Types Packs/Day [...] encounter Miscellaneous Notes * Telephone Encounter - Janneth Kuo MA - 2018 10:54 AM ACCESS LIAISON Prior auth was faxed to [facility]. Called [facility] scheduling and scheduled an appointment with Carrie for 10/25/18 at 11am patient was advised to come in by 9:30am. SS LIAISON documented in this encounter Plan of Treatment [...] on filedocumented in this encounter Care Teams Track Supervisor Relationship Specialty Start Date End Date Ish Buchanan MD [address] [place] [address] 3 [place] [address] PCP - General 08/15/18 06/17/19 Bridget Coronado DO [address] [place] [address] PCP - General 06/18/19 07/02/19 Monica Tellez APRN-CEMENT CONVEYOR OPERATOR [address] [place] [address] PCP - General 07/03/19 11/13/19 Ian Pollock MD [address] [place] [address] PCP - General 11/14/19 12/12/19 Ian Pollock MD [address] [place] [address] PCP - General 12/13/19 05/25/20 documented as of this encounter
--- OUTSIDE RECORDS SUMMARY | 2024-10-30 06:52 | XMS_ITS | Encounter Summary ---
Author Organization [facility] Address [address] [facility] [place] [address] Care Team Providers Care Second Crusher Name Role Phone Ish Buchanan MD Primary Care Provider [phone] Reason for Visit * Reason Comments Pain Back back pain Encounter Details Date Type Department Care Team (Latest Contact Info) Description 02/21/2019 11:00 AM CDT Office Visit [facility] [address] [facility] [place] [address] Alexsandra Rosa PA-C [address] [place] [address] Osteoarthritis of spine with radiculopathy, [...] - - Weight 111.1 kg (245 lb) 02/21/2019 11:14 AM CDT Height 175.3 cm (5' 9 ) 02/21/2019 11:14 AM CDT Body Mass Index 36.18 02/21/2019 11:14 AM CDT documented in this encounter Functional [...] * Patient Instructions* Alexsandra Rosa PA-C - 02/21/2019 11:50 AM CDT [facility] Department of Orthopaedic Surgery Orthopaedic Clinic Discharge Form Josafat Calvo 02/21/2019 Thank you for coming in to see us today for your diagnosis of: Osteoarthritis of spine with radiculopathy, lumbar region - Plan: AMB Ref IVR - [facility] IVR Activity Restrictions: as tolerated Medications Prescribed: diclofenac Special Studies/Labs to be completed: schedule bilateral L4-5 transforaminal epidural steroid injection We recommend that you try the following for your injury: physical therapy exercises, anti-inflammatory medications, tylenol, quit smoking, activity modification, weight loss and icing 20 [...] Josafat Calvo had a clinic appointment on 02/21/2019. Please contact our office to make an appointment if your symptoms are not improving, or if something about your condition significantly changes. [facility] Orthopaedic office contact information: [facility] ; select option 1 to make, change or cancel an appointment OR leave voicemail with Stephanie Gallegos RN at with any questions/concerns. [address] [place] [address] [place] [address] [address] [address] documented in this encounter Progress Notes * Alexsandra Rosa PA-C - 02/21/2019 11:36 AM CDT [address] [address] Dept: [phone] Today we had the pleasure of seeing Josafat Calvo in our [facility] for Chief Complaint Patient presents with ??? Pain Back back pain Josafat Calvo is a 58 year old male who has back pain. He was last seen 4.5 months ago. He underwent bilateral L4-5 transforaminal ANGI and notes this offered significant relief of pain. He presents today for re-evaluation as pain began to return over the last few weeks. Pain is located to the lumbar spine and extends to the posterior legs and is associated with muscle spasms in the posterior thighs. The patient first noted symptoms 1+ years ago. It was related to NKI. Symptoms are exacerbated by standing, sneezing, sleeping. Factors which relieve the pain include lean forward. he is taking meloxicam for pain.he ambulates with out asistance. he has done physical therapy. There are not sympto ms of bowel or bladder dysfunction. He denies changes in health since last appt smokes 10 cigarettes/day Past Medical History: Diagnosis [...] ??? Current Every Day Smoker ??? Packs/day: 0.25 ??? Years: 25.00 ??? Types: Cigarettes Smokeless Tobacco ??? Never Used Comment: Smoked for 30 years. Focused ROS includes: Enodcrine Diabetes Mellitus: Not Applicable Thyroid disorders: no Pulmonary COPD: yes Asthma: yes Other: negative Cardiac History of CHF: no History of AR: no Previous PCI / PTCA: no Previous Cardiac Surgery: no Hypertension requires meds: yes Vascular Known peripheral vascular disease: no Central Nervous System History of TIA's: no CVA: No History of Cancer of any kind: no Bleeding disorders: no Other significant health issues are: negative Physical Examination Vitals: 02/21/19 1114 Weight: 111.1 kg (245 lb) Height: 1.753 m (5' 9 ) Estimated body mass index is 36.18 kg/(m^2) as calculated from the following: Height as of this encounter: 1.753 m (5' 9 ). Weight as of this encounter: 111.1 kg (245 lb). The patient is able to ambulate [...] reviewed by me in office: plain films thoracic spine: no fracture or subluxation. DISH lumbar spine (10/16): no fracture. Grade 1 [...] Schedule bilateral L4-5 transforaminal epidural steroid injection #2. Patient's pain is 7/10 today. First L4-5 ANGI offered 90+% relief. 3. continue physical therapy exercises at home as tolerated. Discussed importance of developing a home exercise program 4. Medication prescribed: diclofenac as needed for pain. 5. Patient was [...] of ambulatory assistive devices. 6. F/U after injection. If non-operative management, including physical therapy/home exercises, activity modification, heat/icing, NSAIDs and/or tylenol, corticosteroid injections, weight loss and nicotine cessation, fails to provide adequate relief of symptoms, [facility] discuss operative vs non-operative intervention Alexsandra Rosa PA-C documented in this encounter Plan of Treatment Not on file documented as of this encounter Visit Diagnoses Diagnosis Osteoarthritis of spine with radiculopathy, lumbar region- Primary documented in this encounter Care Teams Second Crusher Relationship Specialty Start Date End Date Ish Buchanan MD [address] [facility] 3 [place] [address] PCP - General 08/15/18 06/17/19 documented as of this encounter
--- OUTSIDE RECORDS SUMMARY | 2024-10-30 06:52 | XMS_ITS | Encounter Summary ---
Author Organization [facility] Address [address] [facility] [place] [address] Care Team Providers Care Title 1 Tutor Name Role Phone Monica Tellez Primary Care Provi cristobal Reason for Referral * Radiology Services (Routine) - Closed Specialty Diagnoses / Procedures Referred By Florentino lowe Referred To Contact Echosonography Diagnoses Hx of cardiomyopathy Procedures ECHO COMPLETE Monica Tellez APRN-CNP [address] [facility] [place] [place] [address] [facility] Echo [address] [place] [address] Referral ID Status Reason Start Date Expiration Date Visits Re quested Visits Authorized [id number] Closed 09/24/2019 11/08/2019 1 1 Reason for Visit * Reason Comments Hypertension follow up Encounter Details Date Type Department Care Team ([facility] st Contact Info) Description 08/16/2019 11:20 AM CDT Office Visit [facility] Medicine [address] [address] Monica Tellez APRN-CNP [address] [facility] [address] [facility] [place] [place] [address] Hx of cardiomyopathy (Primary Dx) Social History Tobacco Use [...] Sign Reading Time Taken Comments Blood Pressure 130/70 08/16/2019 11:18 AM CDT Pulse 77 08/16/2019 11:18 AM CDT Temperature 36.7 ??C (98 ??F) 08/16/2019 11:18 AM CDT Respiratory Rate 18 08/16/2019 11:18 AM CDT Oxygen Saturation 98% 08/16/2019 11:18 AM CDT Inhaled Oxygen Concentration - - Weight 109.3 kg (241 lb) 08/16/2019 11:18 AM CDT Height - - Body Mass Index 35.59 07/11/2019 1:11 PM CDT documented in this encounter Functional [...] this encounter Patient Instructions * Patient Instructions* Chu Sanabria - 08/16/2019 11:21 AM CDT How to Contact Us Between Office Visits [...] to be seen. Please call us at [phone], option 1 thenoption 1 in the morning you would like to be seen. For scheduling routine appointments, requesting refills or leaving a message for your doctor, the office phone is [phone]. You will be given options to get to the assistance you need. Phone lines are open from 8:00 am to4:30 pm Monday through Monday. All prescription refills must be requested during regular office phone hours. Our fax number is [phone]. After hours urgent calls that cannot wait untill phone lines are open on the next business day are given to the General Internal Medicine physician transitions rn care coordinator. Please call [phone]. Identify yourself as a patient in our practice and give the yard loader operator your doctor's name. The yard loader operator will contact the physician transitions rn care coordinator. You can generally expect a return call within 30 minutes. On weekends, physicians are seeing hospitalized patients and there maybe a longer wait. Visit our website at [email or web address] for information about our practice and an interactive health encyclopedia. Our clinic's missed appointment policy is: - Patients with 3 consecutively missed appointments OR 3 missed appointments in a 12 month period will no longer be seen by General Internal Medicine. They will be asked to seek Primary Care outside of [facility]. - A missed appointment is defined as: * An appointment cancelled less than 24 hours in advance *Arriving to a scheduled appointment too late to be seen (Patients who arrive to clinic later than their scheduled appointment time may not be seen) * Not showing up for an appointment documented in this encounter Progress Notes * Monica Tellez, ORACLE SOA CONSULTANT-PRISONER CLASSIFICATION INTERVIEWER - 08/15/2019 9:13 AM CDT HPI: Josafat Calvo is a 58 year old male is here for routine visit. This is 2nd visit to see me. Most all of his specialist are over in [place]. I added Lisinopril to his med regime last month. Claims BP has been perfect since starting. CC: Concerned about thickened heart that fill manager in [place] told him about No records sent. He feels his breathing is stable but has been bad in past. Continued to smoke few cigarettes per day. Patient Active Problem List: Major depressive disorder, single episode, severe without psychotic features--he sees a psychiatrist in [place]. COPD exacerbation--his estimator is in [place] Panlobular emphysema Opacity of lung on imaging study Tobacco abuse--trying to stop--down to ~ 5 cigs per day. Essential hypertension Cardiac problems--followed by fill manager in [place]. Past History and Surgical History Reviewed under History tab -- Pcn [Penicillins] -- Anaphylaxis -- Penicillin [...] for Pain Disp: 90 tablet Rfl: 3 lisinopril (PRINIVIL; ZESTRIL) 10 MG tablet Take 1 tablet by mouth once daily Disp: 30 tablet Rfl: 5 omeprazole (PRILOSEC) 40 MG capsule 40 mg Disp: Rfl: 5 Pseudoephedrine-Guaifenesin (MUCINEX D PO) Disp: Rfl: spironolactone (ALDACTONE) 50 MG tablet TAKE 1 TABLET BY MOUTH EVERY DAY Disp: 90 tablet Rfl: 0 spironolactone (ALDACTONE) 50 MG tablet Take 1 tablet by mouth once daily Disp: 30 tablet Rfl: 11 Umeclidinium Teller (INCRUSE ELLIPTA IN) Disp: Rfl: VENTOLIN HFA 108 (90 BASE) MCG/ACT inhaler INL 2 PFS PO QID PRN Disp: Rfl: 0 No current facility-administered medications for this visit. Review of Systems Constitutional: Negative. HENT: Negative. Eyes: Negative. Respiratory: Positive for shortness of breath. Cardiovascular: Negative. Gastrointestinal: Negative. Genitourinary: Negative. Musculoskeletal: Positive for back pain, joint pain and myalgias. Skin: Negative. Neurological: Negative. Psychiatric/Behavioral: Positive for depression. Followed in psych Family and Social History Reviewed under History Tab OBJECTIVE: BP 130/70 Pulse 77 Temp 98 ??F (36.7 ??C) (Oral) Resp 18 Wt 241 lb (109.3 kg) SpO2 98% BMI 35.59 kg/m2 He appears well, in no apparent distress. Alert and oriented times three, pleasant and cooperative. Lungs--clear A&P Cor--S1 S2 RRR no murmurs Ext--no edema. Recent Labs Component Name 07/25/19 0935 07/25/19 SODIUM 136 - POTASSIUM 4.7 4.7 CHLORIDE 105 - CO2 24 - BUN 15 - CREATININE 0.88 0.88 GLUCOSE 86 - CALCIUM 9.5 - ALT 20 20* ALKPHOS 108 - AST 17 17 TBIL 0.3 - TPROT 6.7 - EGFR 95 - EGFRAFR 111 - Recent Labs Component Name 07/25/19 0935 07/25/19 WBC 5.4 - RBC 4.53 - HGB 13.0* 13.0* HCT 39.7 40 MCV 87.6 - MCHC 32.7 - PLTCOUNT 254 - LYMPHPCT 39.6 - EOSINPCT 6.1 - BASOPHILPCT 0.6 - Recent Labs Component Name 07/25/19 0935 07/25/19 HGBA1C 5.7* 5.7* Recent Labs Component Name 07/25/19 0935 07/25/19 SODIUM 136 - POTASSIUM 4.7 4.7 CHLORIDE 105 - CO2 24 - BUN 15 - CREATININE 0.88 0.88 GLUCOSE 86 - CALCIUM 9.5 - ALT 20 20* ALKPHOS 108 - AST 17 17 TBIL 0.3 - TPROT 6.7 - EGFR 95 - EGFRAFR 111 - Wt Readings from Last 3 Encounters: 08/16/19 241 lb (109.3 kg) 07/11/19 244 lb (110.7 kg) 05/20/19 240 lb (108.9 kg) ASSESSMENT/PLAN Hypertension--Controlled. Continue same meds. Thickened heart --told of this in past. Echocardiogram ordered. (not scheduled till end sep). He has decided he does not want to see fill manager in [place] but wants to see one at [facility] if needed. Smoking--strongly suggested he stop completely. He is trying to stop He is trying to loose some weight. Avoiding sugar, sweets and fried foods since told of prediabetes. RV October prn sooner. Monica Tellez ANP Electronically signed by Monica Tellez, ORACLE SOA CONSULTANT-PRISONER CLASSIFICATION INTERVIEWER at 08/16/2019 12:25 PM CDT documented in this encounter Plan of Treatment Not on file documented as of this encounter Results * ECHO COMPLETE (10/25/2019 10:02 AM POLISHER EYEGLASS FRAMES) Anatomical Region Laterality Modality Echo 10/25/2019 9:12 AM POLISHER EYEGLASS FRAMES Narrative Procedure Note Mary Ellen Houston MD - 10/25/2019 Monica Tellez APRN-NIMCO ECHOCARDIOG MANOHAR RADIANT documented in this encounter Visit Diagnoses Diagnosis Hx of cardiomyopathy- Primary Personal history of other diseases of circulatory system documented in this encounter Care Teams Title 1 Tutor Relationship Specialty Start Date End Date Monica Tellez APRN-CNP PCP - General 07/03/19 11/13/19 documented as of this encounter
--- OUTSIDE RECORDS SUMMARY | 2024-10-30 06:52 | XMS_ITS | Encounter Summary ---
Author Organization [facility] Address [address] [facility] [place] [address] Care Team Providers Care Primer Assembler Name Role Phone Ish Buchanan MD Primary Care Provider [phone] Encounter Details Date Type Department Care Team (Latest Contact Info) Description 09/14/2018 12:43 PM [facility] [address] [place] [address] Edith Hemphill MD [address] [place] [address] Discharge Disposition: Home or Self Care Social [...] Dispensed Refills Start Date End Date albuterol (PROVENTIL;VENTOLIN) (2.5 MG/3ML) 0.083% nebulizer solution Inhale 2.5 mg by mouth every 4 hours as needed for Shortness of Breath 25 vial 2 08/09/2018 02/21/2019 buPROPion SR 12hr (WELLBUTRIN-SR) 150 MG tablet 0 08/09/2018 12/10/2019 carvedilol (COREG) 25 MG tabletIndications:Prim beto Hypertension (Inactive) Take 1 Tab by mouth 2 times daily Reasons: High Blood Pressure of Unknown Cause 0 0 11/04/2015 10/29/2019 Ibuprofen (MOTRIN IB PO) 02/21/2019 meloxicam (MOBIC) 7.5 MG tablet TK 1 T PO D 0 07/30/2018 02/21/2019 omeprazole (PRILOSEC) 20 MG capsule Take 1 capsule by mouth once daily 30 capsule 09/06/2018 02/21/2019 Pseudoephedrine-Guaife nesin (MUCINEX D PO) 022 sildenafil (REVATIO) 20 MG tablet TAKE 2 5 TABLET OTHER NEEDED HOUR PRIOR TO INTERCOURSE 1 08/06/2018 02/21/2019 spironolactone (ALDACTONE) 25 MG tablet Take 25 mg by mouth once daily 10/29/2017 07/11/2019 spironolactone (ALDACTONE) 50 MG tablet Take 1 tablet by mouth once daily 90 tablet 4 08/09/2018 07/11/2019 umeclidinium-vilantero l (ANORO ELLIPTA) 62.5-25 MCG/INH inhaler Inhale 1 puff by mouth once daily 1 Inhaler 08/09/2018 02/21/2019 VENTOLIN HFA 108 (90 BASE) MCG/ACT inhaler INL 2 PFS PO QID PRN 0 08/01/2018 10/10/2019 documented as of this encounter Plan of Treatment Not on file documented as of this encounter Visit Diagnoses Not on filedocumented in this encounter Care Teams Primer Assembler Relationship Specialty Start Date End Date Ish Buchanan MD [address] [facility] [place] [address] [place] [address] PCP - General 08/15/18 06/17/19 documented as of this encounter
--- OUTSIDE RECORDS SUMMARY | 2024-10-30 06:52 | XMS_ITS | Encounter Summary ---
Author Organization [facility] Address [address] [facility] [place] [address] Care Team Providers Care Forest Resources Professor Name Role Phone Monica Tellez APRN-NIMCO Primary Care Provi cristobal Reason for Visit * Reason Onset Date Comments Results 09/23/2019 Results 09/25/2019 notified patient of results LM Encounter Details Date Type Department Care Team (Late st Contact Info) Description 09/23/2019 Telephone [facility] [address] [facility] [address] [place], [place] [id number] Monica Tellez APRN-CNP [address] OF [facility] [place] [address] Results; Results (notified patient of results LM ) Social History Tobacco Use Types Packs/Day Years [...] Miscellaneous Notes * Telephone Encounter - Shari Silvestre RN - 09/25/2019 1:07 PM CST Pt phoned back and wants order faxed to below: [facility] . Care of Marti Chau [address] [place] [address] Order faxed,.and confirmation received. ER DEPOSIT OPERATOR * Telephone Encounter - Shari Silvestre RN - 09/25/2019 11:43 AM CST Called pt. For information regarding where to send Pain Referral request, but pt. Was not home, andonly vm was able to be left with request to cb today if possible for Shari or Janice. Wei, MSNEd, BSN, RN ER DEPOSIT OPERATOR * Telephone Encounter - Yaquelin Moreno APRN-CNP - 09/25/2019 11:00 AM SOLDER DEPOSIT OPERATOR Order written for pain management referral ER DEPOSIT OPERATOR * Telephone Encounter - Gaye Batista - 09/25/2019 10:32 AM CST Patient states that he did fast prior to labs for 12 hours. Patient states that he left leg continues to hurt and he notified HAND BUTTON SPLITTER Rosalinda at [facility]. Rates pain 9/10 and describes pain as burning, sharp and achy pain is constant and denies that paintravels. Patient reports that he has found a pain management clinic that accepts his insurance and is requesting a referral. Dr. Pollock's Message Please call The thyroid and vitamin B12 levels are normal The glucose was a little high at 114. This would be normal for a non fasting sugar test The kidney function is normal ER DEPOSIT OPERATOR * Telephone Encounter - Ian Pollock MD - 09/23/2019 10:41 AM CST Please call The thyroid and vitamin B12 levels are normal The glucose was a little high at 114. This would be normal for a non fasting sugar test The kidney function is normal ER DEPOSIT OPERATOR * Telephone Encounter - Nadeem Hancock - 09/23/2019 10:18 AM CST Pt called for results of his lab work, provided call back number [phone] Message routed to provider for review and assistance ER DEPOSIT OPERATOR documented in this encounter Plan of [...] this encounter Visit Diagnoses Diagnosis Osteoarthritis of both hips, unspecified osteoarthritis type- Primary Arthralgia of left lower leg Pain in joint, lower leg documented in this encounter Care Teams Forest Resources Professor Relationship Specialty Start Date End Date Monica Tellez, DIRECTOR DANCE-SPRAY DRIER OPERATOR HELPER PCP - General 07/03/19 11/13/19 documented as of this encounter
--- OUTSIDE RECORDS SUMMARY | 2024-10-30 06:52 | XMS_ITS | Encounter Summary ---
Author Organization [facility] Address [address] [facility] [place] [address] Care Team Providers Care Trimming Cutter Machine Name Role Phone Monica Tellez APRN-CHARGING MACHINE OPERATOR Primary Care Provi cristobal Reason for Visit * Reason Onset Date Comments MEDICATION REFILL 10/17/2019 Encounter Details Date Type Department Care Team (Late st Contact Info) Description 10/17/2019 Refill [facility] [address] [facility] [address] [place] [address] Monica Tellez APRN-CHARGING MACHINE OPERATOR [address] OF [facility] [place] [id number] MEDICATION REFILL Social History Tobacco Use Types [...] encounter Miscellaneous Notes * Telephone Encounter - Nancy Hannon - 10/17/2019 12:30 PM CST Insurance will not pay for Ventolin HFA and request you change to a generic inhaler. B WRITER documented in this encounter Plan of Treatment [...] on filedocumented in this encounter Care Teams Trimming Cutter Machine Relationship Specialty Start Date End Date Monica Tellez, CASINO HOST-CHARGING MACHINE OPERATOR PCP - General 07/03/19 11/13/19 documented as of this encounter
--- OUTSIDE RECORDS SUMMARY | 2024-10-30 06:52 | XMS_ITS | Encounter Summary ---
Author Organization [facility] Address [address] [place] [address] Care Team Providers Care Journeyman Glazier Name Role Phone Ish Buchanan MD Primary Care Provider [phone] Reason for Referral * Procedure (Routine) - Closed Specialty Diagnoses / Procedures Referred By Florentino lowe Referred To Contact Pulmonary Disease Diagnoses COPD exacerbation (HCC) Panlobular emphysema (HCC) Procedures COMPLETE PFT W/WO BRONCHODILATOR Edith Hemphill MD [address] [place] [address] [facility] [address] [place] [address] Referral ID Status Reason Start Date Expiration Date Visits Re quested Visits Authorized [id number] Closed 08/09/2018 02/05/2019 1 1 IV THERAPY Reason for Visit * Procedure (Routine) - Closed Specialty Diagnoses / Procedures Referred By Florentino lowe Referred To Contact Pulmonary Disease Diagnoses COPD exacerbation (HCC) Panlobular emphysema (HCC) Procedures COMPLETE PFT W/WO BRONCHODILATOR Edith Hemphill MD [address] [place] [address] [facility] [address] [place] [address] Referral ID Status Reason Start Date Expiration Date Visits Re quested Visits Authorized [id number] Closed 08/09/2018 02/05/2019 1 1 Encounter Details Date Type Department Care Team (Latest Contact Info) Description 09/14/2018 12:43 PM RN IV THERAPY Hospital Encounter [facility] [address] [place] [address] Edith Hemphill MD [address] [place] [address] Discharge Disposition: Home or Self Care Social [...] 08/01/2018 10/10/2019 documented as of this encounter Procedure Notes * Chencho Ambrocio MD - 09/14/2018 2:57 PM CSTAssociated Order(s): PFT OXYGEN DESATURATION STUDY Images from the original note were not included. IV THERAPY * Chencho Ambrocio MD - 09/14/2018 2:52 PM CSTAssociated Order(s): COMPLETE PFT W/WO BRONCHODILATOR Images from the original note were not included. IV THERAPY * Chencho Ambrocio MD - 09/14/2018 2:50 PM CSTAssociated Order(s): SIX MINUTE WALK Images from the original note were not included. IV THERAPY * Chencho Ambrocio MD - 09/14/2018 2:05 PM CSTAssociated Order(s): FRACTIONAL EXHALED NITRIC OXIDE Images from the original note were not included. IV THERAPY documented in this encounter Plan of Treatment Not on file documented as of this encounter Procedures Procedure Name Priority Date/Time Associated Diagnosis Comments COMPLETE PFT W/WO BRONCHODILATOR Routine 09/17/2018 6:49 AM RN IV THERAPY COPD exacerbation (HCC) Panlobular emphysema (HCC) SIX MINUTE WALK Routine 09/17/2018 6:49 AM RN IV THERAPY COPD exacerbation (HCC) Panlobular emphysema (HCC) PFT OXYGEN DESATURATION STUDY Routine 09/17/2018 6:49 AM RN IV THERAPY COPD exacerbation (HCC) Panlobular emphysema (HCC) FRACTIONAL EXHALED NITRIC OXIDE Routine 09/17/2018 6:49 AM RN IV THERAPY COPD exacerbation (HCC) Panlobular emphysema (HCC) documented in this encounter Results * COMPLETE PFT W/WO BRONCHODILATOR (09/17/2018 6:49 AM RN IV THERAPY) Impressions Diego Balderas MD - 09/17/2018 6:49 AM RN IV THERAPY [facility] DEPARTMENT OF PULMONARY, CRITICAL CARE, AND [...] for comparison. Chencho Ambrocio MD ATTENDING PHYSICIAN ATTESTATION/DIEGO BALDERAS M.D.: I have personally reviewed and interpreted the above test and I have made the necessary changes if needed to the above interpretation. Narrative Diego Balderas MD - 09/17/2018 6:49 AM RN IV THERAPY Chencho Ambrocio MD ? 09/14/2018 ??4:51 PM Edith Hemphill MD RESPIRATORY THERAPY ORDERABLES * PFT OXYGEN DESATURATION STUDY (09/17/2018 6:49 AM RN IV THERAPY) Impressions Diego Balderas MD - 09/17/2018 6:49 AM RN IV THERAPY [facility] OF PULMONARY, CRITICAL CARE, AND SLEEP MEDICINE [...] for comparison. Chencho Ambrocio MD ATTENDING PHYSICIAN ATTESTATION/DIEGO BALDERAS M.D.: I have personally reviewed and interpreted the above test and I have made the necessary changes if needed to the above interpretation. Narrative Diego Balderas MD - 09/17/2018 6:49 AM RN IV THERAPY Chencho Ambrocio MD ? 09/14/2018 ??4:44 PM Edith Hemphill MD PFT ORDERABLES * FRACTIONAL EXHALED NITRIC OXIDE (09/17/2018 6:49 AM RN IV THERAPY) Impressions Diego Balderas MD - 09/17/2018 6:49 AM RN IV THERAPY [facility] DEPARTMENT OF PULMONARY, CRITICAL CARE, AND SLEEP MEDICINE EXHALED NITRIC OXIDE (FeNO) Josafat Calvo 09/14/2018 INTERPRETATION The measurement of fractional exhaled nitric oxide (FENO) was 5 ppb. IMPRESSION: 1. Normal fractional exhaled nitric oxide. 2. No prior study to compare. Chencho Ambrocio MD ATTENDING PHYSICIAN ATTESTATION/DIEGO BALDERAS M.D.: I have personally reviewed and interpreted the above test and I have made the necessary changes if needed to the above interpretation. Narrative Diego Balderas MD - 09/17/2018 6:49 AM RN IV THERAPY Chencho Ambrocio MD ? 09/14/2018 ??4:43 PM Edith Hemphill MD RESPIRATORY THERAPY ORDERABLES documented in this encounter Visit Diagnoses Diagnosis COPD exacerbation (HCC) Obstructive chronic bronchitis with exacerbation Panlobular emphysema (HCC) Other emphysema documented in this encounter Care Teams Journeyman Glazier Relationship Specialty Start Date End Date Ish Buchanan MD [address] [place] [address] PCP - General 08/15/18 06/17/19 documented as of this encounter
--- OUTSIDE RECORDS SUMMARY | 2024-10-30 06:52 | XMS_ITS | Encounter Summary ---
Author Organization [facility] Address [address] [place] [address] Care Team Providers Care Core Manager Name Role Phone Ish Buchanan MD Primary Care Provider [phone] Encounter Details Date Type Department Care Team (Latest Contact Info) Description 02/21/2019 11:21 AM CDT - 02/21/2019 11:59 PM CDT Hospital Encounter [facility] DIAGNOSTIC RAD [facility] [address] [facility] [address] [address] Alexsandra Rosa PA-C [address] [place] [address] Discharge Disposition: Home or Self Care Social [...] Sig Dispensed Refills Start Date End Date buPROPion SR 12hr (WELLBUTRIN-SR) 150 MG tablet 0 08/09/2018 12/10/2019 carvedilol (COREG) 25 MG tabletIndications:Primar y Hypertension (Inactive) Take 1 Tab by mouth 2 times daily Reasons: High Blood Pressure of Unknown Cause 0 0 11/04/2015 10/29/2019 diclofenac sodium EC (VOLTAREN) 75 MG tablet Take 1 tablet by mouth 2 times daily 60 tablet 02/21/2019 03/26/2019 hydrOXYzine pamoate (VISTARIL) 50 MG capsule Take 50 mg by mouth 10/08/2020 latanoprost (XALATAN) 0.005 % ophthalmic solution 01/25/2019 01/19/2022 Pseudoephedrine-Guaifene sin (MUCINEX D PO) 2 raNITIdine (ZANTAC) 300 MG tablet 01/25/2019 10/08/2020 spironolactone (ALDACTONE) 25 MG tablet Take 25 mg by mouth once daily 10/29/2017 07/11/2019 spironolactone (ALDACTONE) 50 MG tablet Take 1 tablet by mouth once daily 90 tablet 4 08/09/2018 07/11/2019 Umeclidinium [place] (INCRUSE ELLIPTA IN) 021 VENTOLIN HFA 108 (90 BASE) MCG/ACT inhaler INL 2 PFS PO QID PRN 0 08/01/2018 10/10/2019 documented as of this encounter Plan of Treatment Not on file documented as of this encounter Procedures Procedure Name Priority Date/Time Associated Diagnosis Comments XR THORACIC SPINE 2VW Routine 02/21/2019 11:25 AM CDT Back pain, unspecified back location, unspecified back pain laterality, unspecified chronicity documented in this encounter Results * XR THORACIC SPINE [...] chronicity documented in this encounter Care Teams Core Manager Relationship Specialty Start Date End Date Ish Buchanan MD [facility] [address] [facility] [address] [place] [address] PCP - General 08/15/18 06/17/19 documented as of this encounter
--- OUTSIDE RECORDS SUMMARY | 2024-10-30 06:52 | XMS_ITS | Encounter Summary ---
Author Organization [facility] Address [address] [place] [address] Care Team Providers Care Social Scientist Name Role Phone Ish Buchanan MD Primary Care Provider [phone] Reason for Visit * Reason Comments Refill Request Encounter Details Date Type Department Care Team (Late st Contact Info) Description 06/03/2019 Refill [facility] - Orthopedics [address] [facility] [place] [address] Alexsandra Rosa PA-C [address] [place] [address] Refill Request Social History Tobacco Use Types [...] on filedocumented in this encounter Care Teams Social Scientist Relationship Specialty Start Date End Date Ish Buchanan MD [address] [address] PCP - General 08/15/18 06/17/19 documented as of this encounter
--- OUTSIDE RECORDS SUMMARY | 2024-10-30 06:52 | XMS_ITS | Encounter Summary ---
Author Organization [facility] Address [address] [place] [address] Care Team Providers Care Senior Agricultural Assistant Name Role Phone Link, Bridget Segura Primary Care Provider [phone] Reason for Referral * Radiology Services (Routine) - Closed Specialty Diagnoses / Procedures Referred By Florentino olwe Referred To Contact Fluoroscopy Diagnoses Bilateral primary osteoarthritis of hip Procedures FL JOINT INJECTION OR ASPIRATE Alexsandra Rosa PA-C [address] [place] [address] Referral ID Status Reason Start Date Expiration Date Visits Re quested Visits Authorized [id number] Closed 05/20/2019 11/16/2019 1 1 Reason for Visit * Radiology Services (Routine) - Closed Specialty Diagnoses / Procedures Referred By Florentino lowe Referred To Contact Fluoroscopy Diagnoses Bilateral primary osteoarthritis of hip Procedures FL JOINT INJECTION OR ASPIRATE Alexsandra Rosa PA-C [address] [place] [address] Referral ID Status Reason Start Date Expiration Date Visits Re quested Visits Authorized [id number] Closed 05/20/2019 11/16/2019 1 1 Encounter Details Date Type Department Care Team (Latest Contact Info) Description 06/26/2019 8:57 AM CDT Hospital Encounter [facility] DIAGNOSTIC RAD [address] [place] [address] Alexsandra Rosa PA-C [address] [place] [id number] Discharge Disposition: Home or Self Care Social [...] 0 08/09/2018 12/10/2019 carvedilol (COREG) 25 MG tabletIndications:Prima ry Hypertension (Inactive) Take 1 Tab by mouth 2 times daily Reasons: High Blood Pressure of Unknown Cause 0 0 11/04/2015 10/29/2019 diclofenac sodium EC (VOLTAREN) 75 MG tablet TAKE 1 TABLET BY MOUTH TWICE DAILY 60 tablet 06/03/2019 07/11/2019 hydrOXYzine pamoate (VISTARIL) 50 MG capsule Take 50 mg by mouth 10/08/20 20 latanoprost (XALATAN) 0.005 % ophthalmic solution 01/25/2019 01/19/2022 meloxicam (MOBIC) 7.5 MG tablet 03/11/2019 06/17/2020 nicotine polacrilex (NICORETTE) 2 MG gumIndications:Nicotine Dependence Take 2 mg by mouth as needed for Smoking Cessation Reasons: Nicotine Addiction 07/11/2019 omeprazole (PRILOSEC) 40 MG capsule 40 mg 5 05/14/2019 04/21/2020 Pseudoephedrine-Guaifen esin (MUCINEX D PO) 09/12/20 22 raNITIdine (ZANTAC) 300 MG tablet 01/25/2019 10/08/2020 spironolactone (ALDACTONE) 25 MG tablet Take 25 mg by mouth once daily 10/29/2017 07/11/2019 spironolactone (ALDACTONE) 50 MG tablet Take 1 tablet by mouth once daily 90 tablet 4 08/09/2018 07/11/2019 Umeclidinium [place] (INCRUSE ELLIPTA IN) 021 VENTOLIN HFA 108 (90 BASE) MCG/ACT inhaler INL 2 PFS PO QID PRN 0 08/01/2018 10/10/2019 documented as of this encounter H&P Notes * Kunal Yates MD - 06/26/2019 9:25 AM CDT Subjective: Josafat Calvo is an 58 year old male who presents for Bilateral hip injection under fluoroscopic guidance. Pt has had b/l hip pain, worse for past 3 months. Has never had a joint injection before. Has history of right knee replacement. Past Medical History: Diagnosis Date ??? Arthritis ??? Bipolar I disorder, most recent episode (or current) unspecified ??? Carpal tunnel syndrome ??? COPD (chronic obstructive pulmonary disease) 2009 ??? Generalized anxiety disorder ??? History of drug abuse ??? Hypertension ??? Nondependent abuse of drugs Family History Problem Relation Age of Onset ??? Cancer - Colon Mother ??? Heart Failure Father ??? Hypertension Sister ??? Cancer - Lung Brother 53 Current Outpatient Medications Medication Sig Dispense Refill ??? buPROPion SR 12hr (WELLBUTRIN-SR) 150 MG tablet 0 ??? carvedilol (COREG) 25 MG tablet Take 1 Tab by mouth 2 times daily Reasons: High Blood Pressure of Unknown Cause 0 0 ??? diclofenac sodium EC (VOLTAREN) 75 MG tablet TAKE 1 TABLET BY MOUTH TWICE DAILY 60 tablet 0 ??? hydrOXYzine pamoate (VISTARIL) 50 MG capsule Take 50 mg by mouth ??? nicotine polacrilex (NICORETTE) 2 MG gum Take 2 mg by mouth as needed for Smoking Cessation Reasons: Nicotine Addiction ??? Pseudoephedrine-Guaifenesin (MUCINEX D PO) ??? spironolactone (ALDACTONE) 50 MG tablet Take 1 tablet by mouth once daily 90 tablet 4 ??? Umeclidinium [place] (INCRUSE ELLIPTA IN) ??? VENTOLIN HFA 108 (90 BASE) MCG/ACT inhaler INL 2 PFS PO QID PRN 0 No current facility-administered medications for this encounter. Allergies Allergen Reactions ??? Lisinopril Anaphylaxis ??? Pcn [Penicillins] Anaphylaxis ??? Penicillin G Swelling Review of Systems Musculoskeletal: bilateral hip pain Cardiovascular: No chest pain or palpitations Respiratory: No cough or shortness of breath Constitutional: No fever, no chills Gastrointestinal: No abdominal pain or bloating Objective: There were no vitals taken for this visit. The skin overlying the site of intended injection is normal Imaging: Pelvis radiograph dated 05/20/19 was reviewed and this demonstrates mild hip OA bilaterally. Assessment: Bilateral hip pain Plan: 1. Bilateral hip injection with fluoroscopic guidance. documented in this encounter Plan of Treatment Not on file documented as of this encounter Procedures Procedure Name Priority Date/Time Associated Diagnosis Comments FL JOINT INJECTION OR ASPIRATE Routine 06/26/2019 11:02 AM CDT Bilateral primary osteoarthritis of hip documented in this encounter Results * FL JOINT INJECTION OR ASPIRATE (06/26/2019 11:02 AM CDT) Anatomical Region Laterality Modality Radiographic Joann ging 06/26/2019 11:0 6 AM CDT Impressions 06/26/2019 11:40 AM CDT IMPRESSION: 1. Successful fluoroscopic guided therapeutic right hip injection. 2. Successful fluoroscopic guided therapeutic left hip injection. Dr. Dee was present during the procedure. Dictated by Kunal Yates M.D. (radiology specialist). I, Dr. BOOKER DEE MD have personally reviewed and interpreted this examination/study. This report was electronically signed by BOOKER DEE MD ??on 06/26/2019 11:40 AM . Narrative 06/26/2019 11:40 AM CDT Examination: 1. FLUOROSCOPIC GUIDED THERAPEUTIC INJECTION of the right hip 2. FLUOROSCOPIC GUIDED THERAPEUTIC INJECTION of the left hip HISTORY: ??58-year-old male with three-month history of bilateral hip pain, pelvic radiographs consistent with bilateral hip arthritis. Fluoro Time: 27 seconds total Resident Physician: ??Kunal Yates M.D. Attending Physician: ??Booker Dee M.D. FINDINGS/TECHNIQUE: Right hip: The procedure was explained to the patient and informed consent was obtained. ??The patient was placed on the table in the supine position. ??A timeout was performed including confirmation of the correct patient, procedure, and laterality. ??Preliminary fluoroscopic evaluation of the hip revealed mild degenerative changes at the hip joint. The overlying skin was prepped and draped in the usual sterile fashion. Local anesthesia was obtained with 3 cc of 1% lidocaine. The right hip was accessed using a 3.5 inch 22 gauge spinal needle from an anterior approach, under fluoroscopic guidance. ??Intraarticular position was confirmed by injecting 2 ??mL of Isovue 300iodinated contrast under fluoroscopy. Once verified, 2 mL of Kenalog 40 (80 mg total) and 4 mL of 1 % lidocaine were injected into the joint. Left hip: Preliminary fluoroscopic evaluation of the hip revealed mild degenerative changes at the hip joint. The overlying skin was prepped and draped in the usual sterile fashion. Local anesthesia was obtained with 3 cc of 1% lidocaine. The left hip was accessed using a 3.5 inch 22 gauge spinal needle from an anterior approach, under fluoroscopic guidance. Intraarticular position was confirmed by injecting 2 ??mL of Isovue 300iodinated contrast under fluoroscopy. Once verified, 2 mL of Kenalog 40 (80 mg total) and 4 mL of 1 % lidocaine were injected into the joint. Procedure Note Booker Dee MD - 06/26/2019 Examination: 1. FLUOROSCOPIC GUIDED THERAPEUTIC INJECTION of the right hip 2. FLUOROSCOPIC GUIDED THERAPEUTIC INJECTION of the left hip HISTORY: 58-year-old male with three-month history of bilateral hippain, pelvic radiographs consistent with bilateral hip arthritis. Fluoro Time: 27 seconds total Resident Physician: Kunal Yates M.D. Attending Physician: Booker Dee M.D. FINDINGS/TECHNIQUE: Right hip: The procedure was explained to the patient and informed consent was obtained. The patient was placed on the table in the supine position.A timeout was performed including confirmation of the correct patient, procedure, and laterality. Preliminary fluoroscopic evaluation of thehip revealed mild degenerative changes at the hip joint. The overlying skin was prepped and draped in the usual sterile fashion. Local anesthesiawas obtained with 3 cc of 1% lidocaine. The right hip was accessed using a3.5 inch 22 gauge spinal needle from an anterior approach, underfluoroscopic guidance. Intraarticular position was confirmed by injecting 2 mL of Isovue 300iodinated contrast under fluoroscopy. Once verified, 2 mL of Kenalog 40 (80 mg total) and 4 mL of 1 % lidocaine were injected intothe joint. Left hip: Preliminary fluoroscopic evaluation of the hip revealed milddegenerative changes at the hip joint. The overlying skin was prepped and draped inthe usual sterile fashion. Local anesthesia was obtained with 3 cc of 1% lidocaine. The left hip was accessed using a 3.5 inch 22 gauge spinal needle from an anterior approach, under fluoroscopic guidance. Intraarticular position was confirmed by injecting 2 mL of Isovue 300iodinated contrast under fluoroscopy. Once verified, 2 mL of Jivjuen07 (80 mg total) and 4 mL of 1 % lidocaine were injected into the joint. IMPRESSION: 1. Successful fluoroscopic guided therapeutic right hip injection. 2. Successful fluoroscopic guided therapeutic left hip injection. Dr. Dee was present during the procedure. Dictated by Kunal Yates M.D. (radiology specialist). I, Dr. BOOKER EDE MD have personally reviewed and interpreted this examination/study. This report was electronically signed by BOOKER DEE MD on06/26/2019 11:40 AM . Alexsandra Rosa PA-C FLUOROSCOPY ORD ERABLES documented in this encounter Visit Diagnoses Diagnosis Bilateral primary osteoarthritis of hip documented in this encounter Administered Medications Inactive Administered Medications - up to 3 most recent administrations Medication Order MAR Action Action Date Dose Rate Site iopamidol (ISOVUE 300) 61 % contrast Intra-articular, CONTRAST ONCE, Starting on Mon06/26/19 at 1108, Until Evette 06/27/19 at 0129 $ Given - Contrast 06/26/2019 10:30 AM CDT 2 mL Left Hip documented in this encounter Care Teams Senior Agricultural Assistant Relationship Specialty Start Date End Date Link, Bridget Segura DO [address] [place] [address] PCP - General 06/18/19 07/02/19 documented as of this encounter
--- OUTSIDE RECORDS SUMMARY | 2024-10-30 06:52 | XMS_ITS | Encounter Summary ---
Author Organization [facility] Address [address] [facility] [address] [place] [address] Care Team Providers Care Business Support Specialist Name Role Phone Ish Buchanan MD Primary Care Provider [phone] Encounter Details Date Type Department Care Team (Late st Contact Info) Description 10/02/2018 Orders Only [facility] [address] [place] [address] Alexsandra Rosa PA-C [address] [place] [address] Back pain, unspecified back location, [...] * XR LUMBAR SPINE 2 OR 3VW (10/03/2018 9:48 AM FOOD SUPERVISOR) Anatomical Region Laterality Modality Spine Radiographic Joann ging 10/03/2018 10:1 2 AM FOOD SUPERVISOR Narrative 10/03/2018 10:26 AM FOOD SUPERVISOR LUMBAR SPINE THREE VIEWS HISTORY: Back pain. There is mild left convex scoliosis centered at L3-4. Diffuse degenerative change of the thoracolumbar spine is present. There is mild forward listhesis at L3-4 and L4-5. No fracture or bone destruction is seen. DIAGNOSIS: Degenerative changes with mild forward listhesis at L3-4 and L4-5. Edited by Tabitha Henao on 10/03/2018 10:16 AM Reading Radiologist: Constantino Leyva MD on 10/03/2018 at 10:26 AM Procedure Note Constantino Leyva MD - 10/03/2018 LUMBAR SPINE THREE VIEWS HISTORY: Back pain. There is mild left convex scoliosis centered at L3-4. Diffuse degenerative change of the thoracolumbar spine is present. There is mild forward listhesis at L3-4 and L4-5. No fracture or bone destruction is seen. DIAGNOSIS: Degenerative changes with mild forward listhesis at L3-4 and L4-5. Edited by Tabitha Henao on 10/03/2018 10:16 AM Reading Radiologist: Constantino Leyva MD on 10/03/2018 at 10:26 AM Alexsandra Rosa PA-C DIAGNOSTIC IMAG ING ORDERABLES documented in this encounter Visit Diagnoses Diagnosis Back pain, unspecified back location, unspecified back pain laterality, unspecified chronicity- Primary Back pain, unspecified back location, unspecified back pain laterality, unspecified chronicity documented in this encounter Care Teams Business Support Specialist Relationship Specialty Start Date End Date Ish Buchanan MD [address] [facility] [address] [place] [address] PCP - General 08/15/18 06/17/19 documented as of this encounter
--- OUTSIDE RECORDS SUMMARY | 2024-10-30 06:52 | XMS_ITS | Encounter Summary ---
Author Organization [facility] Address [address] [place] [address] [address] Care [address] Deputy Name Role Phone Ish Buchanan MD Primary Care Provider [phone] Reason for Referral * Radiology Services (Routine) - Closed Specialty Diagnoses / Procedures Referred By Florentino lowe Referred To Contact Fluoroscopy Diagnoses Bilateral primary osteoarthritis of hip Procedures FL JOINT INJECTION OR ASPIRATE Alexsandra Rosa PA-C [address] [place] [address] Referral ID Status Reason Start Date Expiration Date Visits Re quested Visits Authorized [id number] Closed 05/20/2019 11/16/2019 1 1 * Radiology Services (Routine) - Closed Specialty Diagnoses / Procedures Referred By Florention lowe Referred To Contact Fluoroscopy Diagnoses Bilateral primary osteoarthritis of hip Procedures FL JOINT INJECTION OR ASPIRATE Alexsandra Rosa PA-C [address] [place] [address] Referral ID Status Reason Start Date Expiration Date Visits Re quested Visits Authorized [id number] Closed 05/20/2019 11/16/2019 1 1 Reason for Visit * Reason Comments Pain Hip bilateral hip pain Encounter Details Date Type Department Care Team (Latest Contact Info) Description 05/20/2019 10:45 AM CDT Office Visit [facility] - Orthopedics [address] [facility], [place] [address] Alexsandra Rosa PA-C [address] [place] [address] Bilateral primary osteoarthritis of hip (Primary Dx) Social History Tobacco Use [...] - Inhaled Oxygen Concentration - - Weight 108.9 kg (240 lb) 05/20/2019 11:03 AM CDT Height 175.3 cm (5' 9 ) 05/20/2019 11:03 AM CDT Body Mass Index 35.44 05/20/2019 11:03 AM CDT documented in this encounter Functional [...] * Patient Instructions* Alexsandra Rosa PA-C - 05/20/2019 11:40 AM CDT [facility] Department of Orthopaedic Surgery Orthopaedic Clinic Discharge Form Josafat Sarina Calvo 05/20/2019 Thank you for coming in to see us today for your diagnosis of: Bilateral primary osteoarthritis of hip - Plan: FL JOINT INJECTION OR ASPIRATE, FL JOINT INJECTION OR ASPIRATE Activity Restrictions: as tolerated Medications Prescribed: none Special Studies/Labs to be completed: schedule bilateral hip injections We recommend that you try the following for your injury: Recommend 2000 units Vitamin D daily for [...] while taking this medication. Follow up: after injections Josafat Calvo had a clinic appointment on 05/20/2019. Please contact our office to make an appointment if your symptoms are not improving, or if something about your condition significantly changes. [facility] Orthopaedic office contact information: [facility] ; select option 1 to make, change or cancel an appointment OR leave voicemail with Stephanie Gallegos RN at [phone] with any questions/concerns. [address] [place] [address] [place] [address], [place] [address] documented in this encounter Progress Notes * Alexsandra Rosa PA-C - 05/20/2019 11:37 AM CDT [place] [address] Dept: [phone] Today we had the pleasure of seeing Josafat Calvo in our [facility] for Chief Complaint Patient presents with ??? Pain Hip bilateral hip pain Josafat Calvo is a 58 year old male who has bilateral hip pain. Pain is located to the right worsethan left groin/lateral hip. The patient first noted symptoms a few months ago. It was related to NKI. Symptoms are exacerbated by weight bearing activity. Factors which relieve the pain include rest. he is taking meloxicam for pain.he ambulates with out asistance. he has not done physical therapy or corticosteroid injections for his hips. He denies changes in health since last appt Pain Assessment Pain Score: Five smokes 10 cigarettes/day Past Medical History: Diagnosis [...] Cardiac History of CHF: no History of ME: no Previous PCI / PTCA: no Previous Cardiac Surgery: no Hypertension requires meds: yes Vascular Known peripheral vascular disease: no Central Nervous System History of TIA's: no CVA: No History of Cancer of any kind: no Bleeding disorders: no Other significant health issues are: negative Physical Examination Vitals: 05/20/19 1103 Weight: 108.9 kg (240 lb) Height: 1.753 m (5' 9 ) Estimated body mass index is 35.44 kg/(m^2) as calculated from the following: Height as of this encounter: 1.753 m (5' 9 ). Weight as of this encounter: 108.9 kg (240 lb). The patient is awake, alert, oriented and they are pleasant to speak with. Gait is limping. There was a negative straight leg raise bilaterally. Bilateral lower extremity: There is no tenderness.The patient has 110 degrees of hip flexion, 40 degrees of abduction, adduction to midline, internal rotation to 15 degrees and external rotation to 35. The patient does havesignificant pain at the extremes of these ranges of motion. Hip abduction strength is 5/5. Hip adduction strength is 5/5. Hip flection strength is 5/5. intact EHL/FHL/GS/AT, Sensation: intact to light touch distally in L4, L5, S1 distributions, Brisk capillary refill (<2 sec). Erythema: none. Warmth: none. Crepitus: none. Radiographs were reviewed by me in office: plain films bilateral hip: mild degenerative changes to bilateral hip joints Impression: Bilateral hip OA Plan: The patient was counseled as to his diagnosis and demonstrated understanding. 1. Restrictions: none 2. Schedule bilateral intra-articular hip corticosteroid injections with fluoro 3. Discussed physical therapy, he declines. Discussed importance of [...] ambulatory assistive devices. 6. F/U after injection. Alexsandra Rosa PA-C documented in this encounter Plan of Treatment Not on file documented as of this encounter Results * FL JOINT INJECTION OR ASPIRATE (06/26/2019 11:10 AM CDT) Anatomical Region Laterality Modality Radiographic Joann ging 06/26/2019 11:0 6 AM CDT Impressions 06/26/2019 11:40 AM CDT IMPRESSION: 1. Successful fluoroscopic guided therapeutic right hip injection. 2. Successful fluoroscopic guided therapeutic left hip injection. Dr. Dee was present during the procedure. Dictated by Kunal Yates M.D. (president ceo & founder). I, Dr. BOOKER DEE MD have personally [...] Time: 27 seconds total Resident Physician: Kunal aYtes M.D. Attending Physician: Booker Dee M.D. FINDINGS/TECHNIQUE: [...] under fluoroscopy. Once verified, 2 mL of [id number] (80 mg total) and 4 mL of 1 % lidocaine were injected into the joint. IMPRESSION: 1. Successful fluoroscopic guided therapeutic right hip injection. 2. Successful fluoroscopic guided therapeutic left hip injection. Dr. Dee was present during the procedure. Dictated by Kunal Yates M.D. (president ceo & founder). I, Dr. BOOKER DEE MD have personally reviewed and interpreted this examination/study. This report was electronically signed by BOOKER DEE MD on06/26/2019 11:40 AM . Alexsandra Rosa PA-C FLUOROSCOPY ORD ERABLES * FL JOINT INJECTION OR ASPIRATE (06/26/2019 11:02 AM CDT) Anatomical Region Laterality Modality Radiographic Joann ging 06/26/2019 11:0 6 AM CDT Impressions 06/26/2019 11:40 AM CDT IMPRESSION: 1. Successful fluoroscopic guided therapeutic right hip injection. 2. Successful fluoroscopic guided therapeutic left hip injection. Dr. Dee was present during the procedure. Dictated by Kunal Yates M.D. (president ceo & founder). I, Dr. BOOKER DEE MD have personally [...] under fluoroscopy. Once verified, 2 mL of [id number] (80 mg total) and 4 mL of 1 % lidocaine were injected into the joint. IMPRESSION: 1. Successful fluoroscopic guided therapeutic right hip injection. 2. Successful fluoroscopic guided therapeutic left hip injection. Dr. Dee was present during the procedure. Dictated by Kunal Yates M.D. (president ceo & founder). I, Dr. BOOKER DEE MD have personally reviewed and interpreted this examination/study. This report was electronically signed by BOOKER DEE MD on06/26/2019 11:40 AM . Alexsandra Roas PA-C FLUOROSCOPY ORD ERABLES documented in this encounter Visit Diagnoses Diagnosis Bilateral primary osteoarthritis of hip- Primary Bilateral primary osteoarthritis of hip Bilateral primary osteoarthritis of hip documented in this encounter Care Teams Court Deputy Relationship Specialty Start Date End Date Ish Buchanan MD [address] [place] [address] PCP - General 08/15/18 06/17/19 documented as of this encounter
--- OUTSIDE RECORDS SUMMARY | 2024-10-30 06:52 | XMS_ITS | Encounter Summary ---
Author Organization [facility] Address [address] [place] [address] Care Team Providers Care Sales Product Manager Name Role Phone Ian Pollock MD Primary Care Provider [phone] Ian Pollock MD Primary Care Provider [phone] Ian Pollock MD Primary Care Provider [phone] Ian Pollock MD Primary Care Provider [phone] Ian Pollock MD Primary Care Provider [phone] Katina Casiano DO Unavailable [phone] Xavi ACOSTA MD, Jameel R Primary Care Provider + Katina Casiano DO Unavailable [phone] Tracey Ang PA Unavailable [phone] Belkis Angel BRIGADIER-SUPERVISOR [employer]ALL [employer] DEPARTMENT Primary Care Provider + Natalie Baum Primary Care Provider [phone] Reason for Visit * Reason Onset Date Comments General 12/02/2019 Encounter Details Date Type Department Care Team (Late st Contact Info) Description 12/02/2019 Telephone [facility] Internal Medicine [address] [place] [address] Ian Pollock MD [address] DIV OF [place] [address] General Social History Tobacco Use Types Packs/Day [...] encounter Miscellaneous Notes * Telephone Encounter - Hawa Allen - 12/02/2019 10:35 AM CST Pt calling in and started to explain to this TN the reason for his call regarding concerns for his heart Tx andw started to become increasingly agitated and continued to talk over this TN using vulgar language multiples times. TN asked pt to not use vulgar language and reinforced to pt this TN wanted to assist pt. Pt continued to talk over this TN increasingly agitated and stated then you can just hang up on me and this TN reinforced she was not going to hang up on pt and wanted to assist pt. Pt again, continued to be increasingly agitated, continued to use vulgar language and then abruptlydisconnect line. CB# [phone] Routed to provider for further review ER TESTER documented in this encounter Plan of Treatment [...] filedocumented in this encounter Care Teams Sales Product Manager Relationship Specialty Start Date End Date Ian Pollock MD PCP - General 11/14/19 12/12/19 Ian Pollock MD PCP - General 12/13/19 05/25/20 Ian Pollock MD PCP - General 05/26/20 06/15/20 Ian Pollock MD [address] DIV OF [facility] [place] [address] PCP - General 07/31/20 08/20/20 Ian Pollock MD [address] DIV OF [facility] [place] [address] PCP - General 08/21/20 05/29/23 Jameel Hurley III, MD [address] DIV OF [facility] [place] [address] PCP - General Internal Medicine 06/05/23 08/28/23 Belkis Angel, BRIGADIER-SUPERVISOR [employer] DEPARTMENT [address] [address] PCP - General Nurse Practitioner 08/29/23 05/05/24 Natalie Baum [address] [place] [address] PCP - General 05/06/24 Katina Casiano DO [address] [facility] [address] DIV OF [facility] INTERNAL MEDICINE [place], [place] Resident - PCP Internal Medicine 08/10/22 05/29/23 Katina Casiano DO [address] [facility] [address] DIV OF [facility] INTERNAL MEDICINE [place], [place] Hospitalist 06/05/23 Tracey Ang PA [address] [facility] [address] [place] [address] Physician Strip Mill Operator 08/15/23 documented as of this encounter
--- OUTSIDE RECORDS SUMMARY | 2024-10-30 06:52 | XMS_ITS | Encounter Summary ---
Author Organization [facility] Address [address] [facility] [place] [address] Care Team Providers Care Chief Business Development Officer Name Role Phone Kierstensaurabh Monicaorquidea Alonso APRN-EDITORIAL ASSISTANT Primary Care Provi cristobal Reason for Visit * Reason Comments Refill Request Encounter Details Date Type Department Care Team ([facility] Contact Info) Description 08/09/2019 Refill [facility] [address] [facility], [place] [address] Alexsandra Rosa PA-C [address] [place] [address] Refill Request Social History Tobacco [...] on filedocumented in this encounter Care Teams Chief Business Development Officer Relationship Specialty Start Date End Date Monica Tellez, CHRISTMAS TREE FARMER-EDITORIAL ASSISTANT PCP - General 07/03/19 11/13/19 documented as of this encounter
--- OUTSIDE RECORDS SUMMARY | 2024-10-30 06:52 | XMS_ITS | Encounter Summary ---
Author Organization [facility] Address [address] [facility] [place] [address] Care Team Providers Care Chief Contract Officer Name Role Phone Monica Tellez APRN-CFD ENGINEER Primary Care Provi cristobal Encounter Details Date Type Department Care Team (Late st Contact Info) Description 07/11/2019 Orders Only [facility] General Internal Medicine [address] [facility] [address] [place] [address] Monica Tellez RUG CLEANING SUPERVISOR-CFD ENGINEER [address] [facility] [place] [address] Essential hypertension; Osteoarthritis of both hips, unspecified osteoarthritis type; Health care maintenance Social History Tobacco Use Types Packs/Day Years [...] Name Priority Date/Time Associated Diagnosis Comments URINALYSIS REFLEX TO MICROSCOPIC NO CULTURE 07/25/2019 9:35 AM CDT HEMOGLOBIN A1C 07/25/2019 9:35 AM CDT CBC W AUTO DIFFERENTIAL 07/25/2019 9:35 AM CDT COMPREHENSIVE METABOLIC PANEL Routine 07/25/2019 9:35 AM CDT Essential hypertension Osteoarthritis of both hips, unspecified osteoarthritis type Health care maintenance LIPID PROFILE 07/25/2019 9:35 AM CDT documented in this encounter Results * URINALYSIS REFLEX TO MICROSCOPIC NO CULTURE (07/25/2019 9:35 AM CDT) Color UA YELLOW YELLOW [facility] Appearance CLEAR CLEAR [facility] Specific [place] UA 1.016 1.001 - 1.035 [facility] pH UA 5.5 5.0 - 8.0 [facility] Glucose UA NEGATIVE NEGATIVE [facility] Bilirubin UA NEGATIVE NEGATIVE [facility] Ketone UA NEGATIVE NEGATIVE [facility] Blood UA NEGATIVE NEGATIVE [facility] Protein UA NEGATIVE NEGATIVE [facility] Nitrite UA NEGATIVE NEGATIVE [facility] Leukocyte UA NEGATIVE NEGATIVE [facility] Comment: REPORT COMMENT: FASTING:YES Test Performed at: [facility] [address] ??[phone] PRUDENCIO ALDANA DO,MPH 07/25/2019 9:35 AM CDT 07/25/2019 9:37 AM CDT Monica Tellez RUG CLEANING SUPERVISOR-CFD ENGINEER LAB - URINA LYSIS ORDERABLES [facility] [address] [place] [address] * (ABNORMAL) HEMOGLOBIN A1C (07/25/2019 9:35 AM [...] children. REPORT COMMENT: FASTING:YES Test Performed at: [facility] [address] [facility] [place] [place] ??[phone] PRUDENCIO ALDANA DO,MPH 07/25/2019 9:35 AM CDT 07/25/2019 9:37 AM CDT Monica Tellez RUG CLEANING SUPERVISOR-CFD ENGINEER LAB - CHEMI STRY ORDERABLES [facility] [address] [place] [address] * (ABNORMAL) CBC WITH DIFFERENTIAL (07/25/2019 9:35 AM CDT) White Blood Cell Count 5.4 3.8 - 10.8 Thousand/ uL [facility] RBC 4.53 4.20 - 5.80 Million/u L [facility] Hemoglobin 13.0(L) 13.2 - 17.1 g/dL [facility] Hematocrit 39.7 38.5 - 50.0 % [facility] MCV 87.6 80.0 - 100.0 fL [facility] MCH 28.7 27.0 - 33.0 pg [facility] MCHC 32.7 32.0 - 36.0 g/dL [facility] RDW 13.1 11.0 - 15.0 % [facility] Platelet Count 254 140 - 400 Thousand/ uL [facility] MPV 10.7 7.5 - 12.5 fL [facility] Neutrophil Absolute 2414 1500 - 7800 cells/uL [facility] Absolute Bands [facility] Metamyelocytes Absolute [facility] Myelocytes Absolute [facility] Absolute Prolymphocytes [facility] Lymphocytes Absolute 2138 850 - 3900 cells/uL [facility] Absolute Monocytes 486 200 - 950 cells/uL [facility] Eosinophils Absolute 329 15 - 500 cells/uL [facility] Basophils Absolute 32 0 - 200 cells/uL [facility] Absolute Blasts [facility] nRBC Absolute [facility] Granulocytes % 44.7 % [facility] Band Neutrophil [facility] Metamyelocytes [facility] Myelocytes [facility] Promyelocytes [facility] Lymphocytes % 39.6 % [facility] Lymphocyte Reactive [facility] Monocytes % 9.0 % [facility] Eosinophils % 6.1 % [facility] Basophils % 0.6 % [facility] Comment: REPORT COMMENT: FASTING:YES Test Performed at: [facility] [place] [id number] [place] [address] ??[phone] PRUDENCIO ALDANA DO,MPH Blasts [facility] nRBC [facility] Comments [facility] Comment: Test Performed at: [facility] [address] ??[id number] PRUDENCIO ALDANA DO,MPH 07/25/2019 9:35 AM CDT 07/25/2019 9:37 AM CDT Monica Gavin Tellez RUG CLEANING SUPERVISOR-CFD ENGINEER LAB - HEMAT OLOGY ORDERABLES [facility] [address] [place] [address] * LIPID PROFILE (07/25/2019 9:35 AM CDT) Cholesterol 165 <200 mg/dL [facility] HDL Cholesterol 59 >40 mg/dL [facility] Triglycerides 49 <150 mg/dL [facility] LDL Calculated 92 mg/dL (calc) [facility] Comment: Reference range: <100 Desirable range <100 mg/dL for primary prevention; ?? <70 mg/dL for patients with CHD or diabetic patients with > or = 2 CHD risk factors. LDL-C is now calculated using the Luciano-Marlena calculation, which is a validated novel method providing better accuracy than the Friedewald equation in the estimation of LDL-C. Luciano EPSTEIN et al. LACEY. 2013;310(19): 8502-1477 (http://education.[employer]/faq/WKK879) CHOL/HDLC RATIO 2.8 <5.0 (calc) [facility] Non HDL Cholesterol 106 <130 mg/dL (calc) [facility] Comment: For patients with diabetes plus 1 major ASCVD risk factor, treating to a non-HDL-C goal of <100 mg/dL (LDL-C of <70 mg/dL) is considered a therapeutic option. Test Performed at: [facility] [address] ??[phone] PRUDENCIO ALDANA DO,MPH 07/25/2019 9:35 AM CDT 07/25/2019 9:37 AM CDT Monica Tellez RUG CLEANING SUPERVISOR-CFD ENGINEER LAB - CHEMI STRY ORDERABLES [facility] [address] [place] [address] * COMPREHENSIVE METABOLIC PANEL (07/25/2019 9:35 AM CDT) Glucose 86 65 - 99 mg/dL [facility] Comment: ? Fasting reference interval BUN 15 7 - 25 mg/dL [facility] Creatinine 0.88 0.70 - 1.33 mg/dL [facility] Comment: For patients >49 years of age, the reference limit for Creatinine is approximately 13% higher for people identified as -Stateless. eGFR by MDRD 95 > OR = 60 mL/min/1 .73m2 [facility] eGFR by MDRD 111 > OR = 60 mL/min/1 .73m2 [facility] BUN/Creatinine Ratio NOT APPLICABLE 6 - 22 (calc) [facility] Sodium 136 135 - 146 mmol/L [facility] Potassium 4.7 3.5 - 5.3 mmol/L [facility] Chloride 105 98 - 110 mmol/L [facility] CO2 24 20 - 32 mmol/L [facility] Calcium 9.5 8.6 - 10.3 mg/dL [facility] Protein Total 6.7 6.1 - 8.1 g/dL [facility] Albumin 4.1 3.6 - 5.1 g/dL [facility] Globulin Total 2.6 1.9 - 3.7 g/dL (calc) [facility] Albumin/Globulin Ratio 1.6 1.0 - 2.5 (calc) [facility] Bilirubin Total 0.3 0.2 - 1.2 mg/dL [facility] Alkaline Phosphatase 108 40 - 115 U/L [facility] AST 17 10 - 35 U/L [facility] ALT 20 9 - 46 U/L [facility] Comment: REPORT COMMENT: FASTING:YES Test Performed at: [facility] [address] [place] [address] ??[phone] PRUDENCIO ALDANA DO,MPH Blood BLOOD SPECIMEN / Unknown 07/25/2019 9:35 AM CDT 07/25/2019 9:37 AM CDT Monica Tellez APRN-NIMCO LAB - CHEMI STRY ORDERABLES [facility] [address] [place] [address] documented in this encounter Visit Diagnoses Diagnosis Essential hypertension Osteoarthritis of both hips, unspecified osteoarthritis type Health care maintenance Unspecified general medical examination documented in this encounter Care Teams Chief Contract Officer Relationship Specialty Start Date End Date Monica Tellez, RUSS-NIMCO PCP - General 07/03/19 11/13/19 documented as of this encounter
--- OUTSIDE RECORDS SUMMARY | 2024-10-30 06:52 | XMS_ITS | Encounter Summary ---
Author Organization [facility] Address [address] [place] [address] Care Team Providers Care Roll Grinder Name Role Phone Monica Tellez LEVERMAN-CHAPLAINCY Primary Care Provi cristobal Ian Pollock MD Primary Care Provider [phone] Ian Pollock MD Primary Care Provider [phone] Ian Pollock MD Primary Care Provider [phone] Ian Pollock MD Primary Care Provider [phone] Ian Pollock MD Primary Care Provider [phone] Katina Casiano DO Unavailable Xavi ACOSTA MD, Fred R Primary Care Provider + Katina Casiano DO Unavailable [phone] Tracey Ang PA Unavailable [phone] Belkis Angel LEVERMAN-CHAPLAINCY Primary Care Provider + Natalie Baum Primary Care Provider [phone] Reason for Visit * Reason Onset Date Comments General 11/12/2019 Encounter Details Date Type Department Care Team (Late st Contact Info) Description 11/12/2019 Telephone [facility] [address] [place] [address] Monica Tellez LEVERMAN-CHAPLAINCY [address] [place] [address] General Social History Tobacco Use Types Packs/Day [...] Telephone Encounter - Monica Tellez APRN-CNP - 11/12/2019 2:57 PM TEXTILE MACHINE MECHANIC Patient can be scheduled with other provider if he wants. He was upset that I told him to ask his pulmonary doctor to order low dose CT since pulmonary was the one who usually ordered this. MARISOL Díaz ILE MACHINE MECHANIC * Telephone Encounter - Nadeem Hancock - 11/12/2019 1:07 PM CST Pt called to request to be released from the provider's care. Caller stated that the provider has done a couple of things to rub him the wrong way, and he would like another provider. Pt provided call back number [phone] Message routed to provider for review and assistance ILE MACHINE MECHANIC documented in this encounter Plan of Treatment [...] on filedocumented in this encounter Care Teams Roll Grinder Relationship Specialty Start Date End Date Monica Tellez, LEVERMAN-CHAPLAINCY PCP - General 07/03/19 11/13/19 Ian Pollock MD PCP - General 11/14/19 12/12/19 Ian Pollock MD PCP - General 12/13/19 05/25/20 Ian Pollock MD PCP - General 05/26/20 06/15/20 Ian Pollock MD [address] DIV OF [facility] [place] [address] PCP - General 07/31/20 08/20/20 Ian Pollock MD [address] DIV [place] [address] PCP - General 08/21/20 05/29/23 Jameel Hurley III, MD [address] DIV OF [facility] [place] [address] PCP - General Internal Medicine 06/05/23 08/28/23 Belkis Angel, LEVERMAN-CHAPLAINCY [address] [facility] 2nd [place] [address] PCP - General Nurse Practitioner 08/29/23 05/05/24 Natalie Baum [address] [place] [address] PCP - General 05/06/24 Katina Casiano DO [address] [facility] 2L DIV OF GEN INTERNAL MEDICINE [place], [place] Resident - PCP Internal Medicine 08/10/22 05/29/23 Katina Casiano DO [address] [facility] 2L DIV OF GEN INTERNAL MEDICINE [place], [place] Hospitalist 06/05/23 Tracey Ang PA [address] [facility] [address] [place] [address] Physician Group Sales Coordinator 08/15/23 documented as of this encounter
--- OUTSIDE RECORDS SUMMARY | 2024-10-30 06:52 | XMS_ITS | Encounter Summary ---
Author Organization [facility] Address [address] [place] [address] Care Team Providers Care Vegetable Grower Name Role Phone Kierstensaurabh Monicaorquidea Alonso APRN-AGRICULTURAL RESEARCHER Primary Care Provi cristobal Encounter Details Date Type Department Care Team (Late st Contact Info) Description 11/04/2019 Orders Only [facility] - Orthopedics [address] [place] [address], [place] [id number] April Mora MD [address] [place] [address] OF ORTHOPEDIC SURGERY [place], [place] [id number] Back pain, unspecified back location, unspecified back [...] as of this encounter Results * XR SPINE ENTIRE 2 OR 3VW (11/04/2019 1:06 PM AGRICULTURAL LENDER) Anatomical Region Laterality Modality Radiographic Joann ging 11/04/2019 3:25 PM AGRICULTURAL LENDER Impressions 11/04/2019 3:32 PM AGRICULTURAL LENDER FINDINGS/IMPRESSION: There is no evidence of scoliosis. There is no coronal/sagittal imbalance. Pelvic tilt, left greater than right, measures approximately 1.5 cm. There is mild to moderate degenerative disc and joint disease. There is no evidence of vertebral subluxation on the sagittal view. Dictated by Harry Gomez MD (ceo and president). I, Dr. JASE MENDOZA have personally reviewed and interpreted this examination/study. This report was electronically signed by JASE MENDOZA ??on 11/04/2019 3:32 PM . Narrative 11/04/2019 3:32 PM AGRICULTURAL LENDER EXAMINATION: XR SPINE ENTIRE 2 OR 3VW [...] sagittal view. Dictated by Harry Gomez MD (ceo and president). I, Dr. JASE MENDOZA have personally [...] chronicity documented in this encounter Care Teams Vegetable Grower Relationship Specialty Start Date End Date Monica Tellez, SCIENCE INTERN-AGRICULTURAL RESEARCHER PCP - General 07/03/19 11/13/19 documented as of this encounter
--- OUTSIDE RECORDS SUMMARY | 2024-10-30 06:52 | XMS_ITS | Encounter Summary ---
Author Organization [facility] Address [address] [place] [address] Care Team Providers Care Spanish Lecturer Name Role Phone Monica Tellez APRN-LITIGATOR Primary Care Provi cristobal Reason for Visit * Reason Onset Date Comments Results 07/26/2019 Encounter Details Date Type Department Care Team (Late st Contact Info) Description 07/26/2019 Telephone [facility] General Internal Medicine [address] [facility] [address] [place] [address] Monica Tellez APRN-LITIGATOR [address] OF [facility] [place] [address] Results Social History Tobacco Use Types Packs/Day [...] encounter Miscellaneous Notes * Telephone Encounter - Yaquelin Moreno APRN-CNP - 07/26/2019 1:26 PM CDT Pt notified of results. Pre-diabetes discussed Advised cut down smoking and healthy diet * Telephone Encounter - Meenu Galvez, ALYX - 07/26/2019 1:21 PM CDT Patient calling for lab results. Please advise. [phone] documented in this encounter Plan of Treatment Not on file documented as of this encounter Visit Diagnoses Not on filedocumented in this encounter Care Teams Spanish Lecturer Relationship Specialty Start Date End Date Monica Tellez APRN-CNP PCP - General 07/03/19 11/13/19 documented as of this encounter
--- OUTSIDE RECORDS SUMMARY | 2024-10-30 06:52 | XMS_ITS | Encounter Summary ---
Author Organization [facility] Address [address] [place] [address] Care Team Providers Care Cotton Picker Operator Name Role Phone Ish Buchanan MD Primary Care Provider [phone] Encounter Details Date Type Department Care Team (Latest Contact Info) Description 05/20/2019 11:06 AM CDT - 05/20/2019 11:59 PM CDT Hospital Encounter [facility] DIAGNOSTIC RAD [facility] 1L [address] [facility] [place] [address] Alexsandra Rosa PA-C [address] [place] [address] Discharge Disposition: Home or Self [...] TABLET BY MOUTH TWICE DAILY 60 tablet 05/03/2019 06/03/2019 hydrOXYzine pamoate (VISTARIL) 50 MG capsule Take 50 mg by mouth 10/08/20 20 IBUPROFEN PO 06/03/2019 latanoprost (XALATAN) 0.005 % ophthalmic solution 01/25/2019 [...] daily 90 tablet 4 08/09/2018 07/11/2019 Umeclidinium [place] (INCRUSE ELLIPTA IN) 021 VENTOLIN HFA 108 (90 BASE) MCG/ACT inhaler INL 2 PFS PO QID PRN 0 08/01/2018 10/10/2019 documented as of this encounter Plan of Treatment Not on file documented as of this encounter Procedures Procedure Name Priority Date/Time Associated Diagnosis Comments XR PELVIS W BILAT HIP 2VW Routine 05/20/2019 11:09 AM CDT Pain of both hip joints documented in this encounter Results * XR PELVIS W BILAT HIP 2VW (05/20/2019 11:09 AM CDT) Anatomical Region Laterality Modality Pelvis, Lower Extremity Radiogra [facility] Imaging 05/20/2019 1:11 PM CDT Impressions 05/20/2019 1:43 PM CDT IMPRESSION: Mild degenerative change without joint space narrowing. Dictated by Georgie Huntley MD (vice president planning). Dr. BOOKER Duong MD have personally reviewed [...] space narrowing. Dictated by Georgie Huntley MD (vice president planning). Dr. BOOKER Duong MD have personally reviewed and interpreted this examination/study. This report was electronically signed by BOOKER DEE MD on05/20/2019 1:43 PM . Alexsandra Rosa PA-C DIAGNOSTIC IMAG ING ORDERABLES documented in this encounter Visit Diagnoses Diagnosis Pain of both hip joints documented in this encounter Care Teams Cotton Picker Operator Relationship Specialty Start Date End Date Ish Buchanan MD [address] [place] [address] PCP - General 08/15/18 06/17/19 documented as of this encounter
--- OUTSIDE RECORDS SUMMARY | 2024-10-30 06:52 | XMS_ITS | Encounter Summary ---
Author Organization [facility] Address [address] [facility] [place] [address] Care Team Providers Care Plant Associate Name Role Phone Ish Buchanan MD Primary Care Provider [phone] Encounter Details Date Type Department Care Team (Latest Contact Info) Description 09/14/2018 12:44 PM OBSTETRICAL ANESTHESIOLOGIST - 09/14/2018 11:59 PM [facility] Hospital Encounter [facility] PFT [address] [place] [address] Edith Hemphill MD [address] [place] [address] Discharge Disposition: Home or Self Care Social [...] on filedocumented in this encounter Care Teams Plant Associate Relationship Specialty Start Date End Date Ish Buchanan MD [address] [place] [address] PCP - General 08/15/18 06/17/19 documented as of this encounter
--- OUTSIDE RECORDS SUMMARY | 2024-10-30 06:52 | XMS_ITS | Encounter Summary ---
Author Organization [facility] Address [address] [facility] [place] [address] Care Team Providers Care Eastern Philosophy Professor Name Role Phone Ish Buchanan MD Primary Care Provider [phone] Reason for Visit * Reason Comments Refill Request Encounter Details Date Type Department Care Team (Late st Contact Info) Description 05/01/2019 Refill [facility] [address] [facility], [place] [address] Alexsandra Rosa PA-C [address] [place] [address] Refill Request Social History Tobacco [...] on filedocumented in this encounter Care Teams Eastern Philosophy Professor Relationship Specialty Start Date End Date Ish Buchanan MD [address] [address] PCP - General 08/15/18 06/17/19 documented as of this encounter
--- OUTSIDE RECORDS SUMMARY | 2024-10-30 06:52 | XMS_ITS | Encounter Summary ---
Author Organization [facility] Address [address] [facility] [facility] [place] [address] Care Team Providers Care Flight Coordinator Name Role Phone Monica Tellez APRN-CREAM RIPENER Primary Care Provi cristobal Reason for Visit * Reason Comments Establish Care new pt Encounter Details Date Type Department Care Team (Late st Contact Info) Description 07/11/2019 1:00 PM CDT Office Visit [facility] General Internal Medicine [address] [facility] [address] [place] [address] Monica Tellez APRN-CREAM RIPENER [address] OF [facility] [place] [phone] Encounter for immunization (Primary Dx); Essential hypertension; Chronic obstructive pulmonary disease, unspecified COPD type (HCC); Osteoarthritis of both hips, unspecified osteoarthritis type; Need for hepatitis C screening test; Diabetes mellitus screening; Health care maintenance Social History Tobacco Use [...] Reading Time Taken Comments Blood Pressure 140/90 07/11/2019 1:11 PM CDT Pulse 80 07/11/2019 1:11 PM CDT Temperature 37 ??C (98.6 ??F) 07/11/2019 1:11 PM CDT Respiratory Rate - - Oxygen Saturation 97% 07/11/2019 1:11 PM CDT Inhaled Oxygen Concentration - - Weight 110.7 kg (244 lb) 07/11/2019 1:11 PM CDT Height 175.3 cm (5' 9 ) 07/11/2019 1:11 PM CDT Body Mass Index 36.03 07/11/2019 1:11 PM CDT documented in this [...] Instructions * Patient Instructions* Chu Sanabria - 07/11/2019 1:17 PM CDT How to Contact Us Between Office [...] to be seen. Please call us at [phone], option 1 thenoption 1 in the morning you would like to be seen. For scheduling routine appointments, requesting refills or leaving a message for your doctor, the office phone is [phone]. You will be given options to get to the assistance you need. Phone lines are open from 8:00 am to4:30 pm Monday through Monday. All prescription refills must be requested during regular office phone hours. Our fax number is [phone]. After hours urgent calls that cannot wait untill phone lines are open on the next business day are given to the General Internal Medicine physician information assurance manager. Please call [phone]. Identify yourself as a patient in our practice and give the kiln transfer operator your doctor's name. The kiln transfer operator will contact the physician information assurance manager. You can generally expect a return call within 30 minutes. On weekends, physicians are seeing hospitalized patients and there maybe a longer wait. Visit our website at [email or web address] for information about our practice and an interactive health encyclopedia. Our clinic's missed appointment policy is: - Patients with 3 consecutively missed appointments OR 3 missed appointments in a 12 month period will no longer be seen by General Internal Medicine. They will be asked to seek Primary Care outside of [facility]. - A missed appointment is defined as: * An appointment cancelled less than 24 hours in advance *Arriving to a scheduled appointment too late to be seen (Patients who arrive to clinic later than their scheduled appointment time may not be seen) * Not showing up for an appointment documented in this encounter Progress Notes * Monica Tellez, OCULAR PATHOLOGIST-CREAM RIPENER - 07/11/2019 1:20 PM CDT HPI: Josafat Calvo is a 58 year old male is here in [facility] for [facility] with PCP. Had been seeing Dr Cobian in [place]. He is coming here so everyone is here --but all other providers seem to be in [place]. CC: BP and back and hip pains. Claims his BP is never under really good control. He is only on Spironolactone and Carvedilol. He was referred to cardiology by his previous PCP due to left side of heart is too thick . Occasional chest pain--usually upper left chest. Non exertional. Walks about a mile and never has pain. Other active problems: Patient Active Problem List: Major depressive disorder, single episode, severe without psychotic features--stable[place] COPD--down to About 5 cigarettes per day. Thinks his COPD is getting worse. Trying to DC smoking. Will be seeing a die tester in [place] Was told to have sleep studies but never did. Panlobular emphysema Opacity of lung on imaging study--CT done 09/16 did not show abnormalities Hypertension--see above. Tobacco abuse--claims down to 5 cigs per day BPH--followed by in [place] Past History and Surgical History Reviewed under History tab -- Lisinopril -- Anaphylaxis -- Pcn [Penicillins] -- Anaphylaxis -- Penicillin G -- Swelling Current Outpatient Medications: buPROPion SR 12hr (WELLBUTRIN-SR) 150 MG tablet Disp: Rfl: 0 carvedilol (COREG) 25 MG tablet Take 1 Tab by mouth 2 times daily Reasons: High Blood Pressure of Unknown Cause Disp: 0 Rfl: 0 diclofenac sodium EC (VOLTAREN) 75 MG tablet TAKE 1 TABLET BY MOUTH TWICE DAILY Disp: 60 tablet Rfl: 0 hydrOXYzine pamoate (VISTARIL) 50 MG capsule Take 50 mg by mouth Disp: Rfl: omeprazole (PRILOSEC) 40 MG capsule 40 mg Disp: Rfl: 5 Pseudoephedrine-Guaifenesin (MUCINEX D PO) Disp: Rfl: spironolactone (ALDACTONE) 25 MG tablet Take 25 mg by mouth once daily Disp: Rfl: spironolactone (ALDACTONE) 50 MG tablet Take 1 tablet by mouth once daily Disp: 90 tablet Rfl: 4 Umeclidinium [place] (INCRUSE ELLIPTA IN) Disp: Rfl: VENTOLIN HFA 108 (90 BASE) MCG/ACT inhaler INL 2 PFS PO QID PRN Disp: Rfl: 0 No current facility-administered medications for this visit. Review of Systems Constitutional: Negative. HENT: Negative. Eyes: Negative. Last eye appt was 1 mo ago in [place] + glaucoma Respiratory: Positive for cough, shortness of breath and wheezing. Cardiovascular: Positive for chest pain. Gastrointestinal: Positive for heartburn. Last colonoscopy last yr. To have repeat in 4 yr Genitourinary: Nocturia--4-5 x Has urologist in [place] Has appt next month Musculoskeletal: Positive for back pain and joint pain. Skin: Negative. Family History Problem Relation Age of Onset [...] level: Not on file Occupational History ??? Not on file Social Needs ??? Financial resource strain: Not on file ??? Food insecurity: Worry: Not on file Inability: Not on file ??? Transportation needs: Medical: Not on file Non-medical: Not on [...] activity: Not on file Lifestyle ??? Physical activity: Days per week: Not on file Minutes per session: Not on file ??? Stress: Not on file Relationships ??? Social connections: Talks on phone: Not on file Gets together: Not on file Attends baptism service: Not on file Active member of club or organization: Not on file Attends meetings of clubs or organizations: Not on file Relationship status: Not on file ??? Intimate partner violence: Fear of current or ex partner: Not [...] cat for 5 months No black mold OBJECTIVE: BP 140/90 Pulse 80 Temp 98.6 ??F (37 ??C) (Oral) Ht 5' 9 (1.753 m) Wt 244 lb (110.7 kg) SpO2 97% BMI 36.03 kg/m2 He appears well, in no apparent distress. Alert and oriented times three, pleasant and cooperative. Ear--canals clear and TM's intact Nose--normal mucosa Mouth--pharynx without erythema. Teeth poor Neck--no thyroid enlargement or nodes palpated. Lungs--clear A&P Cor--S1 S2 RRR no murmur Abd--soft, obese, non tender, no masses or organomegaly, + BS. Ext--no edema. CT Chest 09/14/18 IMPRESSION: ??1. No acute process identified in the chest. ??2. Mild paraseptal and centrilobular emphysema. ?? No results for input(s): CHOL, TRIG, HDL, VLDL, LDL, LDLCALC, LDLDIRECT, CHOLHDL in the last 24246 hours. No results for input(s): SODIUM, POTASSIUM, CHLORIDE, CO2, BUN, CREATININE, GLUCOSE, CALCIUM, ALT, ALKPHOS, AST, TBIL, TPROT, GFR, EGFR, EGFRAFR in the last 21751 hours. Invalid input(s): ABL ASSESSMENT/PLAN Hypertension--not optimal control and he claims it is never controlled. Add Lisinopril 10 mg daily. Continue Carvedilol He reports he had some ankle swelling one time in past and was told probably due to Lisinopril and was taken off. Never had facial swelling. HX of thickening of left side of heart --has appt coming up with forestry engineer in [place]. COPD/Emplysema--will be seeing die tester in [place]. Pneumovax today. Depression/psych disorder--psych in [place]. Smoking--down to 5 cigs per day and trying to stop. Has patches at home. DJD--followed in [facility]. Ibuprofen 600 mg q 6-8 hr prn Claims helps better than diclofenac or Meloxicam Last injections did not help his hips. Obesity--trying to loose 20 lb. Started walking more. BPH--has urologist Health maintenance: Colonoscopy in past 1 yr. Repeat 5 yr. Recent eye exam. Check routine labs. Flu and pneumovax today. Monica Tellez ANP documented in this encounter Plan of Treatment Not on file documented as of this encounter Results * COMPREHENSIVE METABOLIC PANEL (07/25/2019 9:35 AM CDT) Glucose 86 65 - 99 mg/dL [facility] Comment: ? Fasting reference interval BUN 15 7 - 25 mg/dL [facility] Creatinine 0.88 0.70 - 1.33 mg/dL [facility] Comment: For patients >49 years of age, the reference limit for Creatinine is approximately 13% higher for people identified as -Maldivian. eGFR by MDRD 95 > OR = [...] Comment: REPORT COMMENT: FASTING:YES Test Performed at: [facility] [address] ??[id number] PRUDENCIO ALDANA DO,MPH Blood BLOOD SPECIMEN / Unknown 07/25/2019 9:35 AM CDT 07/25/2019 9:37 AM CDT Monica [facility] - CHEMI STRY ORDERABLES [facility] [address] [place] [address] documented in this encounter Visit Diagnoses Diagnosis Encounter for immunization- Primary Need for other specified prophylactic vaccination against single bacterial disease Essential hypertension Chronic obstructive pulmonary disease, unspecified COPD type (HCC) Osteoarthritis of both hips, unspecified osteoarthritis type Need for hepatitis C screening test Special screening examination for other specified viral diseases Diabetes mellitus screening Screening for diabetes mellitus Health care maintenance Unspecified general medical examination documented in this encounter Care Teams Flight Coordinator Relationship Specialty Start Date End Date Monica Tellez APRN-CNP PCP - General 07/03/19 11/13/19 documented as of this encounter
--- OUTSIDE RECORDS SUMMARY | 2024-10-30 06:52 | XMS_ITS | Encounter Summary ---
Author Organization [facility] Address [address] [facility] [place] [address] Care Team Providers Care Research Biologist Name Role Phone Monica Tellez DRY DIP WORKER-BOAT ENGINE MECHANIC Primary Care Provi cristobal Ian Pollock MD Primary Care Provider [phone] Ian Pollock MD Primary Care Provider [phone] Ian Pollock MD Primary Care Provider [phone] Ian Pollock MD Primary Care Provider [phone] Ian Pollock MD Primary Care Provider [phone] Katina Casiano DO Unavailable [phone] Xavi ACOSTA MD, Fred R Primary Care Provider + Katina Casiano DO Unavailable [phone] Tracey Ang PA Unavailable [phone] Belkis Angel DRY DIP WORKER-BOAT ENGINE MECHANIC Primary Care Provider + Natalie Baum Primary Care Provider [phone] Reason for Visit * Reason Onset Date Comments Forms 07/12/2019 [place] Encounter Details Date Type Department Care Team (Late st Contact Info) Description 07/12/2019 Telephone [facility] General Internal Medicine [address] [address] Monica Tellez APRN-BOAT ENGINE MECHANIC [address] [place] [phone] Forms ([place] transportation) Social History Tobacco Use Types Packs/Day Years [...] encounter Miscellaneous Notes * Telephone Encounter - Meenu Galvez RN - 07/18/2019 8:47 AM CDT Patient calling to get status update on forms for transportation. Please advise. CB [phone] * Telephone Encounter - Shari Silvestre, RN - 07/12/2019 1:11 PM CDT [facility] transportation form on your shelf. * Telephone Encounter - Hawa Allen - 07/12/2019 9:34 AM CDT Pt calling in to inform office that paperwork is on it's way from [place] concerning Medicare rides so pt can get transportation to and from [facility] appts. CB# [phone] Routed to [facility] Nurse Communication for further review documented in this encounter Plan of Treatment Not on file documented as of this encounter Visit Diagnoses Not on filedocumented in this encounter Care Teams Research Biologist Relationship Specialty Start Date End Date Monica Tellez DRY DIP WORKER-BOAT ENGINE MECHANIC PCP - General 07/03/19 11/13/19 Ian Pollock MD PCP - General 11/14/19 12/12/19 Ian Pollock MD PCP - General 12/13/19 05/25/20 Ian Pollock MD PCP - General 05/26/20 06/15/20 Ian Pollock MD [address] [facility] [address] [facility] [place] [address] PCP - General 07/31/20 08/20/20 Ian Pollock MD [address] DIV OF [facility] [place] [address] PCP - General 08/21/20 05/29/23 Jameel Hurley III, MD [address] [facility] [place] [address] PCP - General Internal Medicine 06/05/23 08/28/23 Belkis Angel, DRY DIP WORKER-BOAT ENGINE MECHANIC [address] [facility] [address] [place] [address] PCP - General Nurse Practitioner 08/29/23 05/05/24 Natalie Baum [address] [place] [address] PCP - General 05/06/24 Katina Casiano DO [address] [facility] [address] DIV OF GEN INTERNAL MEDICINE [place], [place] Resident - PCP Internal Medicine 08/10/22 05/29/23 Katina Casiano DO [address] [facility] [address] DIV OF GEN INTERNAL MEDICINE [place], [place] Hospitalist 06/05/23 Tracey Ang PA [address] [facility] [address] [place] [address] Physician Equipment Mechanic Specialist 08/15/23 documented as of this encounter
--- OUTSIDE RECORDS SUMMARY | 2024-10-30 06:52 | XMS_ITS | Encounter Summary ---
Author Organization [facility] Address [address] [place] [address] Care Team Providers Care Veneer Sample Maker Name Role Phone Monica Tellez APRN-VP CUSTOMER SERVICE Primary Care Provi cristobal Reason for Visit * Reason Onset Date Comments Refill Request 10/10/2019 Encounter Details Date Type Department Care Team (Late st Contact Info) Description 10/10/2019 Telephone [facility] [address] [facility] [address] [place] [address] Monica Tellez APRN-VP CUSTOMER SERVICE [address] OF [facility] [place] [phone] Refill Request Social History Tobacco Use Types [...] Miscellaneous Notes * Telephone Encounter - Janice Conn, ALYX - 10/10/2019 4:08 PM SENIOR ENERGY CONSULTANT Refill Request Josafat [place] Umesh EDELMIRA: 09/13/2019 NOV due: 10/25/2019 NOV scheduled: 10/25/2019 LRF: 08/01/2018 Allergies: Allergies Allergen Reactions ??? Lisinopril Anaphylaxis ??? Pcn [Penicillins] Anaphylaxis ??? Penicillin G Swelling Pended Medication Order: Requested Prescriptions Pending Prescriptions Disp Refills ??? VENTOLIN HFA 108 (90 Base) MCG/ACT inhaler 0 OR ENERGY CONSULTANT documented in this encounter Plan of Treatment [...] on filedocumented in this encounter Care Teams Veneer Sample Maker Relationship Specialty Start Date End Date Monica Tellez, SEED POTATO CUTTER-VP CUSTOMER SERVICE PCP - General 07/03/19 11/13/19 documented as of this encounter
--- OUTSIDE RECORDS SUMMARY | 2024-10-30 06:52 | XMS_ITS | Encounter Summary ---
Author Organization [facility] Address [address] [facility] [address] Care Team Providers Care Lamp Inspector Name Role Phone Ish Buchanan MD Primary Care Provider [phone] Reason for Visit * Radiology Services (Routine) - Closed Specialty Diagnoses / Procedures Referred By Codieac t Referred To Contact CT Scan Diagnoses COPD exacerbation (HCC) Panlobular emphysema (HCC) Procedures CT CHEST WO CONTRAST Edith Hmephill MD [address] [place] [address] [facility] [address] [place] [address] Referral ID Status Reason Start Date Expiration Date Visits Re quested Visits Authorized [id number] Closed 08/09/2018 02/05/2019 1 1 Encounter Details Date Type Department Care Team (Latest Contact Info) Description 09/14/2018 12:30 PM SUPERVISOR PLASTERING - 09/14/2018 12:42 PM [facility] Hospital Encounter [facility] [address] [place] [address] Edith Hemphill MD [address] [place] [address] Discharge Disposition: Home or Self Care Social [...] Diagnosis Comments CT CHEST WO CONTRAST Routine 09/14/2018 12:54 PM SUPERVISOR PLASTERING COPD exacerbation (HCC) Panlobular emphysema (HCC) documented in this encounter Results * CT CHEST WO CONTRAST (09/14/2018 12:54 PM SUPERVISOR PLASTERING) Anatomical Region Laterality Modality Chest Computed Tomogra phy 09/14/2018 1:35 PM SUPERVISOR PLASTERING Impressions 09/15/2018 9:56 AM SUPERVISOR PLASTERING IMPRESSION: 1. No acute process identified in the chest. 2. Mild paraseptal and centrilobular emphysema. Dictated by Gerardo Casarez MD (radiology aide). I, Dr. DIXON ODONNELL M.D. have personally reviewed and interpreted this examination/study. This report was electronically signed by DIXON ODONNELL M.D. ??on 09/15/2018 9:56 AM . Narrative 09/15/2018 9:56 AM SUPERVISOR PLASTERING EXAMINATION: Computed tomography (CT) of the chest without contrast HISTORY: Chronic obstructive pulmonary disease exacerbation TECHNIQUE: CT of the chest was performed without contrast according to standard protocol. COMPARISON: No prior study is available for comparison. FINDINGS: Evaluation of visceral and vascular structures is degraded due to lack of intravenous contrast administration. There is a left-sided three-vessel aortic arch. The main pulmonary artery is normal in caliber. The aorta is atherosclerotic but normal in caliber. Mild paraseptal and centrilobular emphysema is present. The lungs are clear of focal consolidation. No pleural effusion or focal pleural thickening is identified. There is no evidence of pneumothorax. No suspicious pulmonary nodule is identified. The trachea is patent and midline. The heart size is normal. No pericardial effusion is present. No mediastinal, supraclavicular, or axillary lymphadenopathy is seen. A small calcified granuloma seen in the left hepatic lobe. Small hypodensities within the liver are too small to characterize but likely represent cysts. A calcified granuloma is seen in the spleen. A 2.3 cm cyst is seen in the left kidney. Otherwise, the visible portions of the gallbladder, spleen, pancreas, adrenal glands, stomach, and bowel are normal. Bone windows demonstrate no suspicious lytic or blastic lesions. Chronic seventh through 11th rib fractures are identified. Multilevel degenerative changes are seen in the spine. Flowing ossification is seen along the mid to lower anterior thoracic spine, consistent with diffuse idiopathic skeletal hyperostosis. Procedure Note Sunita Odonnell MD - 09/15/2018 EXAMINATION: Computed tomography (CT) of the chest without contrast HISTORY: Chronic obstructive pulmonary disease exacerbation TECHNIQUE: CT of the chest was performed without contrast according to standard protocol. COMPARISON: No prior study is available for comparison. FINDINGS: Evaluation of visceral and vascular structures is degraded due to lackof intravenous contrast administration. There is a left-sided three-vessel aortic arch. The main pulmonaryartery is normal in caliber. The aorta is atherosclerotic but normal incaliber. Mild paraseptal and centrilobular emphysema is present. The lungs are clear of focal consolidation. No pleural effusion or focal pleural thickening is identified. There is no evidence of pneumothorax. No suspicious pulmonary nodule is identified. The trachea is patent and midline. The heart size is normal. No pericardial effusion is present. No mediastinal, supraclavicular, or axillary lymphadenopathy is seen. A small calcified granuloma seen in the left hepatic lobe. Small hypodensities within the liver are too small to characterize but likely represent cysts. A calcified granuloma is seen in the spleen. A 2.3 cm cyst is seen in the left kidney. Otherwise, the visible portions of the gallbladder, spleen, pancreas, adrenal glands, stomach, and bowel are normal. Bone windows demonstrate no suspicious lytic or blastic lesions. Chronic seventh through 11th rib fractures are identified. Multileveldegenerative changes are seen in the spine. Flowing ossification is seen along themid to lower anterior thoracic spine, consistent with diffuse idiopathic skeletal hyperostosis. IMPRESSION: 1. No acute process identified in the chest. 2. Mild paraseptal and centrilobular emphysema. Dictated by Gerardo Casarez MD (radiology aide). I, Dr. DIXON ODONNELL M.D. have personally reviewed and interpretedthis examination/study. This report was electronically signed by DIXON ODONNELL M.D. on 09/15/2018 9:56 AM . Edith Hemphill MD CT ORDERABLES documented in this encounter Visit Diagnoses Diagnosis COPD exacerbation (HCC) Obstructive chronic bronchitis with exacerbation Panlobular emphysema (HCC) Other emphysema documented in this encounter Care Teams Lamp Inspector Relationship Specialty Start Date End Date Ish uBchanan MD [address] [place] [id number] PCP - General 08/15/18 06/17/19 documented as of this encounter
--- OUTSIDE RECORDS SUMMARY | 2024-10-30 06:52 | XMS_ITS | Encounter Summary ---
Author Organization [facility] Address [address] [place] [address] Care Team Providers Care Crayon Sorting Machine Feeder Name Role Phone Ish Buchanan MD Primary Care Provider [phone] Encounter Details Date Type Department Care Team (Latest Contact Info) Description 10/03/2018 9:44 AM ENGINE OILER - 10/03/2018 11:59 PM [facility] Hospital Encounter [facility] [address] [place] [address] Alexsandra Rosa PA-C [address] [place] [address] Discharge Disposition: Home or Self [...] of Unknown Cause 0 0 11/04/2015 10/29/2019 hydrOXYzine pamoate (VISTARIL) 50 MG capsule Take 50 mg by mouth 10/08/20 20 Ibuprofen (MOTRIN IB PO) 02/21/2019 meloxicam (MOBIC) 7.5 MG tablet TK 1 T PO D 0 07/30/2018 02/21/2019 methocarbamol (ROBAXIN) 500 MG tablet Take 1 tablet by mouth every 6 hours as needed for Muscle Spasms 60 tablet 1 10/03/2018 02/21/2019 omeprazole (PRILOSEC) 20 MG capsule Take 1 capsule by mouth once daily 30 capsule 09/06/2018 02/21/2019 Pseudoephedrine-Guaife nesin (MUCINEX D PO) 022 raNITIdine (ZANTAC) 300 MG tablet TK ONE T PO BID 2 09/19/2018 02/21/2019 sildenafil (REVATIO) 20 MG tablet TAKE 2 [...] XR LUMBAR SPINE 2 OR 3VW Routine 10/03/2018 9:48 AM ENGINE OILER Back pain, unspecified back location, unspecified back pain laterality, unspecified chronicity documented in this encounter Results * XR LUMBAR SPINE 2 OR 3VW (10/03/2018 9:48 AM ENGINE OILER) Anatomical Region Laterality Modality Spine Radiographic Joann ging 10/03/2018 10:1 2 AM ENGINE OILER Narrative 10/03/2018 10:26 AM ENGINE OILER LUMBAR SPINE THREE VIEWS HISTORY: Back pain. [...] chronicity documented in this encounter Care Teams Crayon Sorting Machine Feeder Relationship Specialty Start Date End Date Ish Buchanan MD [address] [place] [id number] PCP - General 08/15/18 06/17/19 documented as of this encounter
--- OUTSIDE RECORDS SUMMARY | 2024-10-30 06:52 | XMS_ITS | Encounter Summary ---
Author Organization [facility] Address [address] [facility] [place] [address] Care Team Providers Care Chief Of Staff Doctor Name Role Phone Ian Pollock MD Primary Care Provider [phone] Reason for Visit * Reason Onset Date Comments General 11/18/2019 Encounter Details Date Type Department Care Team (Late st Contact Info) Description 11/18/2019 Telephone [facility] [address] [facility] [address] [place] [address] Ian Pollock MD [address] OF [facility] [place] [address] General Social History Tobacco Use Types Packs/Day [...] Telephone Encounter - Monica Tellez APRN-CNP - 11/21/2019 1:58 PM FINISHER BRUSH He can be scheduled with a resident or other ULTRASONIC SOLDERER. Please schedule. MARISOL Díaz SHER BRUSH * Telephone Encounter - Ian Pollock MD - 11/18/2019 11:15 AM CST Schedule follow up with Monica not with me. Please call patient. Nothing needs to be done for the valve changes seen before his visit in Cardiology in 3 weeks. SHER BRUSH * Telephone Encounter - Janice Conn RN - 11/18/2019 9:30 AM FINISHER BRUSH Pt calling today, has apparently been switched from Lashon Tellez to Dr. Pollock, whom he has not an appt until January 21, 2020. Pt calling today to state his angst regarding a 12/11/2019 first-time appt with Bread Molder Dr. Funk, and is apprehensive about having to wait until his December appt to be given the results, because Cardiology will not give, but will send to PCP. Pt reassured that Dr. Ha relate his results when they come in, but to wait a week after Cardiology appt for the resultsto be sent. He was told that his heart halve has a leak and was suggested to wait for the testing. FYI. SHER BRUSH documented in this encounter Plan of Treatment [...] filedocumented in this encounter Care Teams Chief Of Staff Doctor Relationship Specialty Start Date End Date Ian Pollock MD PCP - General 11/14/19 12/12/19 documented as of this encounter
--- OUTSIDE RECORDS SUMMARY | 2024-10-30 06:52 | XMS_ITS | Encounter Summary ---
Author Organization [facility] Address [address] [facility] [place] [address] Care Team Providers Care Vocational Counselor Name Role Phone Monica Tellez APRN-NIMCO Primary Care Provi cristobal Reason for Visit * Reason Onset Date Comments Referral 10/07/2019 wants notes; lizy n management. Forms 10/07/2019 Encounter Details Date Type Department Care Team (Late st Contact Info) Description 10/07/2019 Telephone [facility] Internal Medicine [address] [id number] Monica Tellez APRN-CNP [address] OF [facility] [place] [phone] Referral (wants notes; pain management.); Forms Social History Tobacco Use Types Packs/Day [...] Telephone Encounter - Shari Silvestre RN - 10/07/2019 12:59 PM CST Faxed to new number. PECTING OBSERVER * Telephone Encounter - Hawa Allen - 10/07/2019 12:35 PM CST [facility] calling in and requesting to have paperwork refaxed b/c was faxed to incorrect fax# and paperwork has not been recvd. Angelika requesting to please use FAX# [phone] - This [place] read back x2 above Fax# to Angelika. CB# [phone] Routed to [facility] Nurse Communication for further review PECTING OBSERVER * Telephone Encounter - Shari Silvestre RN - 10/07/2019 11:32 AM CST Printed and faxed. PECTING OBSERVER * Telephone Encounter - Maria Isabel William RN - 10/07/2019 11:26 AM CST [facility] pain management Needs last visit faxed to office with meds problem list allergies and Dx [phone] PECTING OBSERVER documented in this encounter Plan of Treatment [...] on filedocumented in this encounter Care Teams Vocational Counselor Relationship Specialty Start Date End Date Monica Tellez APRN-PERSONAL LINES ACCOUNT MANAGER PCP - General 07/03/19 11/13/19 documented as of this encounter
--- OUTSIDE RECORDS SUMMARY | 2024-10-30 06:52 | XMS_ITS | Encounter Summary ---
Author Organization [facility] Address [address] [facility] [address] Care Team Providers Care Insulation Board Back Tender Name Role Phone Monica Tellez APRN-PAPER MAKER Primary Care Provi cristobal Reason for Visit * Reason Onset Date Comments Order 11/11/2019 Encounter Details Date Type Department Care Team (Late st Contact Info) Description 11/11/2019 Telephone [facility] [address] [facility] [address] [place] [address] Monica Tellez APRN-PAPER MAKER [address] OF [facility] [place] [phone] Order Social History Tobacco Use Types Packs/Day [...] Telephone Encounter - Monica Tellez APRN-CNP - 11/11/2019 4:47 PM X RAY OPERATOR Patient has appointment with his pulmonary doctor and advised him to ask him to order since pulmonary ordered in past.. Patient got angry and hung up. MARISOL Díaz X RAY OPERATOR * Telephone Encounter - Maria Isabel William RN - 11/11/2019 7:47 AM CST Patient needs a folow CT scan of low dose lung screening Last test was 10/2017 Fax to [phone] X RAY OPERATOR documented in this encounter Plan of [...] on filedocumented in this encounter Care Teams Insulation Board Back Tender Relationship Specialty Start Date End Date Monica Tellez APRN-CNP PCP - General 07/03/19 11/13/19 documented as of this encounter
--- OUTSIDE RECORDS SUMMARY | 2024-10-30 06:52 | XMS_ITS | Encounter Summary ---
Author Organization [facility] Address [address] [place] [place] [address] Care Team Providers Care Agriculture Consultant Name Role Phone Monica Tellez APRN-SOFTWARE TEST AND VALIDATION ENGINEER Primary Care Provi cristobal Reason for Visit * Radiology Services (Routine) - Closed Specialty Diagnoses / Procedures Referred By Florentino lowe Referred To Contact Echosonography Diagnoses Hx of cardiomyopathy Procedures ECHO COMPLETE Monica Tellez APRN-SOFTWARE TEST AND VALIDATION ENGINEER [address] [facility] DIV OF [facility] [place] [address] [facility] Echo [address] [place] [address] Referral ID Status Reason Start Date Expiration Date Visits Re quested Visits Authorized [id number] Closed 09/24/2019 11/08/2019 1 1 Encounter Details Date Type Department Care Team (Latest Contact Info) Description 10/25/2019 9:00 AM WAREHOUSE SHIPPING RECEIVING CLERK - 10/25/2019 11:59 PM [facility] Hospital Encounter [facility] ECHO [address] [place] [address] Monica Tellez APRN-SOFTWARE TEST AND VALIDATION ENGINEER [address] [facility] [address] DIV OF [facility] [place] [address] Discharge Disposition: Home or Self [...] Refills Start Date End Date albuterol HFA (PROVENTIL;VENTOLIN;PROA IR) 108 (90 Base) MCG/ACT inhaler Inhale 2 [...] of Unknown Cause 0 0 11/04/2015 10/29/2019 gabapentin (NEURONTIN) 300 MG capsule 10/07/2019 10/08/2020 hydrOXYzine pamoate (VISTARIL) 50 MG capsule Take 50 mg by mouth 10/08/2020 ibuprofen (MOTRIN) 600 MG tablet Take 1 [...] TK 1 T PO D 10/11/2019 12/10/2019 Pseudoephedrine-Guaifene sin (MUCINEX D PO) 2 raNITIdine [...] prn eczema 60 g 08/16/2019 11/05/2019 Umeclidinium [place] (INCRUSE ELLIPTA IN) 021 ziprasidone (GEODON) 20 [...] Date/Time Associated Diagnosis Comments ECHO COMPLETE Routine 10/25/2019 10:02 AM WAREHOUSE SHIPPING RECEIVING CLERK Hx of cardiomyopathy documented in this encounter Visit Diagnoses Not on filedocumented in this encounter Administered Medications Inactive Administered Medications - up to 3 most recent administrations Medication Order MAR Action Action Date Dose Rate Site perflutren Lipid Microsphere (DEFINITY) injection SUSP 1.5 mL 1.5 mL, Intravenous, INTRA-PROCEDURE ONCE, 1 dose, On Mon10/25/19 at 1000, Shake well before using. $ Given 10/25/2019 10:02 AM WAREHOUSE SHIPPING RECEIVING CLERK 1.5 mL documented in this encounter Care Teams Agriculture Consultant Relationship Specialty Start Date End Date Monica Tellez APRN-SOFTWARE TEST AND VALIDATION ENGINEER PCP - General 07/03/19 11/13/19 documented as of this encounter
--- OUTSIDE RECORDS SUMMARY | 2024-10-30 06:52 | XMS_ITS | Encounter Summary ---
Author Organization [facility] Health Address [address] [facility] [place] [address] Care Team Providers Care Automatic Teller Machine Servicer Name Role Phone Monica Tellez APRN-MILLER HEAD WET PROCESS Primary Care Provi cristobal Encounter Details Date Type Department Care Team (Late st Contact Info) Description 09/19/2019 Orders Only [facility] [address] [facility] [address] [place] [address] Monica Tellez [place]-MILLER HEAD WET PROCESS [address] [facility] [place] [phone] Social History Tobacco Use Types Packs/Day Years [...] Procedure Name Priority Date/Time Associated Diagnosis Comments HEPATITIS C AB W/RFLX TO HCV RNA QN PCR 09/19/2019 9:17 AM MANAGER OPERATIONS AND PROCUREMENT documented in this encounter Results * HEPATITIS C AB W/RFLX TO HCV RNA QN PCR (09/19/2019 9:17 AM MANAGER OPERATIONS AND PROCUREMENT) Hepatitis C Antibody NON-REACTI VE NON-REACT FELY [facility] Signal to Cut-Off 0.03 <1.00 [facility] Comment: HCV antibody was non-reactive. There is no laboratory evidence of HCV infection. In most cases, no further action is required. However, if recent HCV exposure is suspected, a test for HCV RNA (test code 66259) is suggested. For additional information please refer to http://education.Tenrox/faq/BLW34r4 (This link is being provided for informational/ educational purposes only.) Test Performed at: [facility] [facility] [address] [place], [place] ??[phone] PRUDENCIO ALDANA DO,MPH 09/19/2019 9:17 AM MANAGER OPERATIONS AND PROCUREMENT 09/19/2019 9:21 AM MANAGER OPERATIONS AND PROCUREMENT Monica [facility] - CHEMI STRY ORDERABLES [facility] [address] [place] [address] documented in this encounter Visit Diagnoses Not on filedocumented in this encounter Care Teams Automatic Teller Machine Servicer Relationship Specialty Start Date End Date Monica Tellez APRN-CNP PCP - General 07/03/19 11/13/19 documented as of this encounter
--- OUTSIDE RECORDS SUMMARY | 2024-10-30 06:52 | XMS_ITS | Encounter Summary ---
Author Organization [facility] Address [address] [facility] [place] [address] Care Team Providers Care Academic Affairs Assistant Name Role Phone Ish Buchanan MD Primary Care Provider [phone] Reason for Visit * Reason Comments Refill Request Encounter Details Date Type Department Care Team (Late st Contact Info) Description 03/26/2019 Refill [facility] [address] [facility] [place] [address] Alexsandra Rosa PA-C [address] [place] [address] Refill Request Social History Tobacco [...] on filedocumented in this encounter Care Teams Academic Affairs Assistant Relationship Specialty Start Date End Date Ish Buchanan MD [address] [address] PCP - General 08/15/18 06/17/19 documented as of this encounter
--- OUTSIDE RECORDS SUMMARY | 2024-10-30 06:52 | XMS_ITS | Encounter Summary ---
Author Organization [facility] Health Address [address] [place] [address] Care Team Providers Care Career Technical Supervisor Name Role Phone Monica Tellez APRN-ROUTEMAN Primary Care Provi cristobal Encounter Details Date Type Department Care Team (Late st Contact Info) Description 08/16/2019 Orders Only [facility] [address] [facility] [address] [place] [address] Monica Tellez CARE ADMINISTRATIVE TECH-ROUTEMAN [address] OF [facility] [place] [phone] Hx of cardiomyopathy Social History Tobacco Use Types Packs/Day Years [...] Comments ECHO COMPLETE Routine 10/25/2019 10:02 AM INVESTOR RELATIONS ASSOCIATE Hx of cardiomyopathy documented in this encounter Results * ECHO COMPLETE (10/25/2019 10:02 AM INVESTOR RELATIONS ASSOCIATE) Anatomical Region Laterality Modality Echo 10/25/2019 9:12 AM INVESTOR RELATIONS ASSOCIATE Narrative Procedure Note Mary Ellen Houston MD - 10/25/2019 Monica DAMON ECHOCARDIOG MANOHAR RADIANT documented in this encounter Visit Diagnoses Diagnosis Hx of cardiomyopathy Personal history of other diseases of circulatory system documented in this encounter Care Teams Career Technical Supervisor Relationship Specialty Start Date End Date Monica Tellez APRN-CNP PCP - General 07/03/19 11/13/19 documented as of this encounter
--- OUTSIDE RECORDS SUMMARY | 2024-10-30 06:52 | XMS_ITS | Encounter Summary ---
Author Organization [facility] Address [address] [facility] [place] [address] Care Team Providers Care Finger Buff Sewer Name Role Phone Ish Buchanan MD Primary Care Provider Reason for Visit * Reason Onset Date Comments Medication Prior Auth Request 08/15/2018 Encounter Details Date Type Department Care Team ([facility] Contact Info) Description 08/15/2018 Telephone [facility] [address] [place] [address] Leyla Fritz Medication Prior Auth Request Social History Tobacco [...] encounter Miscellaneous Notes * Telephone Encounter - Leyla Fritz - 08/15/2018 9:33 AM CDT Received call from Pt's PCP regarding PA for ANORO Inh... Pt had an appt with his PCP, Dr Buchanan today and was concerned about his medication... I informed the staff that we are aware of the need for a PA and we shipped the pt a sample out yesterday... * Telephone Encounter - Leyla Fritz - 08/15/2018 9:16 AM CDT Re: umeclidinium-vilanterol (ANORO ELLIPTA) 62.5-25 MCG/INH inhaler Pt contacted office about this newly prescribed medication... Ins requires a PA for this Inhaler or an alternate... I informed pt that we will initiate a PA , this process make take a few days, so I mailed him a Sample Inhaler... documented in this encounter Plan of Treatment Not on file documented as of this encounter Visit Diagnoses Not on filedocumented in this encounter Care Teams Finger Buff Sewer Relationship Specialty Start Date End Date Ish Buchanan MD [address] [place] [address] PCP - General 08/15/18 06/17/19 documented as of this encounter
--- OUTSIDE RECORDS SUMMARY | 2024-10-30 06:52 | XMS_ITS | Encounter Summary ---
Author Organization [facility] Address [address] [place] [address] Care Team Providers Care Infrastructure Tech Name Role Phone Unavailable Primary Care Provider Unavailabl e Reason for Referral * Radiology Services (Routine) - Canceled Specialty Diagnoses / Procedures Referred By Florentino lowe Referred To Contact Radiology Diagnoses Orthopnea Procedures ECHO COMPLETE Edith Hemphill MD [address] [place] [address] [facility] Echo [address] [place] [address] Referral ID Status Reason Start Date Expiration Date V isits Requested Visits Authorized [id number] Canceled 08/09/2018 02/05/2019 1 1 * Procedure (Routine) - Closed Specialty Diagnoses / Procedures Referred By Florentino lowe Referred To Contact Pulmonary Disease Diagnoses COPD exacerbation (HCC) Panlobular emphysema (HCC) Procedures COMPLETE PFT W/WO BRONCHODILATOR Edith Hemphill MD [address] [place] [address] [facility] Pft [address] [place] [address] Referral ID Status Reason Start Date Expiration Date Visits Re quested Visits Authorized [id number] Closed 08/09/2018 02/05/2019 1 1 * Radiology Services (Routine) - Closed Specialty Diagnoses / Procedures Referred By Contac t Referred To Contact CT Scan Diagnoses COPD exacerbation (HCC) Panlobular emphysema (HCC) Procedures CT CHEST WO CONTRAST Edith Hemphill MD [address] [place] [address] [facility] [address] [place] [address] Referral ID Status Reason Start Date Expiration Date Visits Re quested Visits Authorized [id number] Closed 08/09/2018 02/05/2019 1 1 Reason for Visit * Reason Comments COPD Encounter Details Date Type Department Care Team (Late st Contact Info) Description 08/09/2018 1:30 PM CDT Office Visit [facility] [address] [place] [address] Edith Hemphill MD [address] [place] [address] COPD exacerbation (HCC) (Primary Dx); Encounter for immunization; Panlobular emphysema (HCC); SHAYNE (obstructive sleep apnea); Orthopnea; Opacity of lung on imaging study Social History Tobacco Use Types Packs/Day Years [...] Sign Reading Time Taken Comments Blood Pressure 144/88 08/09/2018 1:23 PM CDT Pulse 73 08/09/2018 1:23 PM CDT Temperature 37.1 ??C (98.8 ??F) 08/09/2018 1:23 PM CD T Respiratory Rate - - Oxygen Saturation 96% 08/09/2018 1:23 PM CDT Inhaled Oxygen Concentration - - Weight 114.9 kg (253 lb 3.2 oz) 08/09/2018 1:23 PM CDT Height 175.3 cm (5' 9 ) 08/09/2018 1:23 PM CDT Body Mass Index 37.39 08/09/2018 1:23 PM CDT documented in this encounter Functional [...] of this encounter Progress Notes * Ang Christie MD - 08/09/2018 2:54 PM CDT Pulmonary Consult Note: Patient seen and examined with Dr. Hemphill. Please see note for further details. I confirm history, exam, assessment and plan. In addition I note: Pt with h/o emphysema with recurrent exacerbations. Continues to have cough productive, associated with wheezing. Has COUGHLIN, orthopnea and PND. Occasional LE swelling. Has no evelyn sleep study yet. Chart reviewed Vitals reviewed Exam: No distress Short thick neck, Mallampati 3 CVS: S1S2+, RRR RS: diffuse wheezing Abd: soft NT ND BS+ Ext: no edema Data reviewed Upper lobes opacities on CT scan. Assessment: 1. COPD/emphysema, uncontrolled with acute exacerbation - aggravate by continued tobacco and marijuana 2. Lung opacities - ? Eosinophilic PNA or smoking related ILD or other 3. Dyspnea on exertion Plan: ?? Obtain PFTs, 6 MWD test, oxygen desaturation, Echocardiogram, CT chest ?? Change inhalers to Anoro ellipta 1 inhalation daily and albuterol MDI 2 inhalation as needed every 4 hrs ?? Tobacco and marijuana Smoking cessation discussed with the patient ?? Flu shot today please see Dr. Hemphill's note for full details Ang Christie MD 08/09/2018 * Edith Hemphill MD - 08/09/2018 1:54 PM CDT [facility] Department of Pulmonary, Critical Care, and Sleep Medicine Pulmonary Office Consultation Note Name: Josafat Calvo Age: 57 y.o. History of Present Illness: Josafat Calvo is a 57 y.o. male with Past Medical History significant for Bipolardisorder and COPD diagnosed 2009. Establishing care today for COPD control. 2010: COPD, Diagnosed at OSH. Was on Proair, symbicort, over the years with persistent symptoms. Admitted 09/2017 with pneumonia and COPD exacerbation; Changed to incruse+ albuterol+ DUONEBs By his PCP Dr leslie avina. Continues to smoke 1 p/d, continues to be very symptomatic; complains of : SOB; at rest and on exertion and while laying flat. Able to walk 1.5 blocks. Used to walk miles in the past. Uses albuterol with the simplest activity Able to go up 3 flights of stairs. Sleeps on 2 pillows, has orthopnea and peripheral swelling Has Right chest pain, started 2 days ago, respirophasic; motrin helps. Has Cough; mainly dry, morning white phlegm ( sometimes green), persistent, triggered by smoking and cold weather. Has Nightly awakenings due to symptoms. Has Posttassive vomiting Uses albuterol up to 10 times aday ( picked up Monday now left with 163 puffs) No fever, chills. Gaining weight Has rhinorrhea this morning and feels he would have gone to ER if he didn't have an appointment today. Was treated for a COPD exacerbation twice over the last 6 months; last being 1 month ago. Got Prednisone and Azithromycin. Current respiratory therapies/medications: Incruse Albuterol DUOnebs Past Medical/Surgical History: Past Medical History: Diagnosis Date ??? Arthritis ??? Bipolar I disorder, most recent episode (or current) unspecified ??? Carpal tunnel syndrome ??? COPD (chronic obstructive pulmonary disease) 2009 ??? Generalized anxiety disorder ??? History of drug abuse ??? Hypertension ??? Nondependent abuse of drugs Home Medications: Current Outpatient Prescriptions: ??? VENTOLIN HFA 108 (90 BASE) MCG/ACT inhaler ??? meloxicam (MOBIC) 7.5 MG tablet ??? sildenafil (REVATIO) 20 MG tablet ??? Ibuprofen (MOTRIN IB PO) ??? Pseudoephedrine-Guaifenesin (MUCINEX D PO) ??? spironolactone (ALDACTONE) 50 MG tablet ??? predniSONE (DELTASONE) 20 MG tablet ??? azithromycin (ZITHROMAX) 500 MG tablet ??? umeclidinium-vilanterol (ANORO ELLIPTA) 62.5-25 MCG/INH inhaler ??? albuterol (PROVENTIL;VENTOLIN) (2.5 MG/3ML) 0.083% nebulizer solution ??? omeprazole (PRILOSEC) 20 MG capsule ??? carvedilol (COREG) 25 MG tablet Allergies: Allergies Allergen Reactions ??? Lisinopril Anaphylaxis ??? Pcn [Penicillins] Anaphylaxis ??? Penicillin G Swelling Social History: Social History Social History ??? Marital status: Single Spouse name: N/A ??? Number of children: N/A ??? Years of education: N/A Occupational History ??? Not on file. Social History Main Topics ??? Smoking status: Current Every Day Smoker Packs/day: 1.00 Years: 25.00 Types: Cigarettes ??? Smokeless tobacco: Never Used Comment: Smoked for 30 years. ??? Alcohol use 3.6 oz/week 6 Cans of beer per week Comment: beer madi. 25 oz 3 times a week ??? Drug use: Yes Special: Marijuana Comment: every few days, this morning was last use. ??? Sexual activity: Not on file Other Topics Concern ??? Not on file Social History Narrative Lives alone Independent in activities. 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 No recent or remote travel Maybe sick contact Has a cat for 5 months No black mold Family History: Family History Problem Relation Age of Onset ??? Cancer - Colon Mother ??? Heart Failure Father ??? Hypertension Sister ??? Cancer - Lung Brother 53 Review of Systems: General: Denies, fevers, chills, night sweats Skin: Denies recent rash, pruritis Head: Denies trauma, headache Eyes: Denies diplopia, acute vision loss Ears: Denies hearing loss, tinnitus, vertigo Nose: Denies epistaxis Mouth: Denies bleeding, sore throat Cardiac: Denies angina, palpitations, Has dyspnea on exertion Respiratory: mentioned in HPI Gastrointestinal: Denies anorexia, nausea, dysphagia, diarrhea, constipation, bright red blood per rectum, melena Genitourinary: Denies dysuria, hesitancy, increased frequency Vascular: Denies claudication, previous vascular surgery Musculoskeletal: Denies muscle weakness, arthritis Neurologic: Denies loss of sensation, tingling, history of seizures Endocrine: Denies heat/cold intolerance, history of diabetes/thyroid illness Objective: Vitals: 08/09/18 1323 BP: 144/88 Pulse: 73 Temp: 98.8 ??F (37.1 ??C) SpO2: 96% Weight: 253 lb 3.2 oz (114.9 kg) Height: 5' 9 (1.753 m) Estimated body mass index is 37.39 kg/(m^2) as calculated from the following: Height as of this encounter: 5' 9 (1.753 m). Weight as of this encounter: 253 lb 3.2 oz (114.9 kg). Physical Exam: General: Alert, cooperative, appears comfortable on room air Skin: No rashes or lesions HEENT: Pupils equally round and reactive to light/recommendation. Nasal turbinates normal without erythema. Oropharynx clear, Mallampati Lungs: Wheezing throughout Heart: Regular rate and rhythm, normal S1 and S2, no murmurs, rubs, or gallops Abdomen: Soft, non-tender, normoactive bowel sounds. No masses, no organomegaly Extremities: No edema or cyanosis Pulses: 2+ and symmetric, no clubbing Assessment: 1. COPD (unable to stage); Category D in acute exacerbation 2. Tobacco dependence 3. ? SHAYNE 4. Substance abuse 5. GERD Diagnostic Plan: 1. PFTs W BD response 2. 6 MWT 3. feNO 4. Region 8 /IGE 5. CBC W differential 6. CT Chest WO contrast 7. Echo cardiogram with Bubble study Therapeutic Plan: 1. DC incruse ellipta 2. Start Anoro Ellipta 62.525 mcg/inh daily 3. Continue Albuterol inhaler as needed 4. DC Duoneb and substituted by albuterol neb as needed 5. Prednisone 40 mg X 5 days 6. Azithromycin 500 MG x 3 days 7. DC zantac and Pepcid ; substitute with Prilosec once daily 20 mg 8- Flu vaccine today 9- Pneumonia vaccine next visit 10- Counseled about smoking cessation 11- Ambulatory referral to sleep 12- RTC in 6-8 weeks, after all testing is obtained. Edith Hemphill Pulmonary and Critical Care Fellow, PGY-6 [facility] [employer] Division of Pulmonary, Critical Care and Sleep Medicine 08/09/2018 documented in this encounter Plan of Treatment Scheduled Orders Name Type Priority Associated Diagnoses Orde r Schedule ECHO COMPLETE Echocardiography Radiant Routine Orthopnea Expected: 08/09/2018, Expires: 08/09/2019 documented as of this encounter Results * COMPLETE PFT W/WO BRONCHODILATOR (09/17/2018 6:49 AM CLINICAL PROVIDER TRAINER) Impressions Rhianna Balderas MD - 09/17/2018 6:49 AM CLINICAL PROVIDER TRAINER [facility] DEPARTMENT OF PULMONARY, CRITICAL CARE, AND SLEEP MEDICINE PULMONARY FUNCTION TESTS Josafat Calvo 09/14/2018 INTERPRETATION Please see technologist's comments mentioned [...] comparison. Chencho Ambrocio MD ATTENDING PHYSICIAN ATTESTATION/RHIANNA BALDERAS M.D.: I have personally reviewed and interpreted the above test and I have made the necessary changes if needed to the above interpretation. Narrative Rhianna Balderas MD - 09/17/2018 6:49 AM CLINICAL PROVIDER TRAINER Chencho Ambrocio MD ? 09/14/2018 ??4:51 PM Edith Hemphill MD RESPIRATORY THERAPY ORDERABLES * SIX MINUTE WALK (09/17/2018 6:49 AM CLINICAL PROVIDER TRAINER) Impressions Rhianna Balderas MD - 09/17/2018 6:49 AM CLINICAL PROVIDER TRAINER [facility] DEPARTMENT OF PULMONARY, CRITICAL CARE, AND [...] comparison. Chencho Ambrocio MD ATTENDING PHYSICIAN ATTESTATION/RHIANNA BALDERAS M.D.: I have personally reviewed and interpreted the above test and I have made the necessary changes if needed to the above interpretation. Narrative Rhianna Balderas MD - 09/17/2018 6:49 AM CLINICAL PROVIDER TRAINER Chencho Ambrocio MD ? 09/14/2018 ??4:47 PM Edith Hemphill MD RESPIRATORY THERAPY ORDERABLES * PFT OXYGEN DESATURATION STUDY (09/17/2018 6:49 AM CLINICAL PROVIDER TRAINER) Impressions Rhianna Balderas MD - 09/17/2018 6:49 AM CLINICAL PROVIDER TRAINER [facility] DEPARTMENT OF PULMONARY, CRITICAL CARE, [...] comparison. Chencho Ambrocio MD ATTENDING PHYSICIAN ATTESTATION/RHIANNA BALDERAS M.D.: I have personally reviewed and interpreted the above test and I have made the necessary changes if needed to the above interpretation. Narrative Rhianna Balderas MD - 09/17/2018 6:49 AM CLINICAL PROVIDER TRAINER Chencho Ambrocio MD ? 09/14/2018 ??4:44 PM Edith Hemphill MD PFT ORDERABLES * FRACTIONAL EXHALED NITRIC OXIDE (09/17/2018 6:49 AM CLINICAL PROVIDER TRAINER) Impressions Rhianna Balderas MD - 09/17/2018 6:49 AM CLINICAL PROVIDER TRAINER [facility] DEPARTMENT OF PULMONARY, CRITICAL CARE, AND SLEEP MEDICINE EXHALED NITRIC OXIDE (FeNO) Josafat Branch Umesh 09/14/2018 INTERPRETATION The measurement of fractional exhaled nitric oxide (FENO) was 5 ppb. IMPRESSION: 1. Normal fractional exhaled nitric oxide. 2. No prior study to compare. Chencho Ambrocio MD ATTENDING PHYSICIAN ATTESTATION/RHIANNA BALDERAS M.D.: I have personally reviewed and interpreted the above test and I have made the necessary changes if needed to the above interpretation. Narrative Rhianna Balderas MD - 09/17/2018 6:49 AM CLINICAL PROVIDER TRAINER Chencho Ambrocio MD ? 09/14/2018 ??4:43 PM Edith Hemphill MD RESPIRATORY THERAPY ORDERABLES * CT CHEST WO CONTRAST (09/14/2018 12:54 PM CLINICAL PROVIDER TRAINER) Anatomical Region Laterality Modality Chest Computed Tomogra phy 09/14/2018 1:35 PM CLINICAL PROVIDER TRAINER Impressions 09/15/2018 9:56 AM CLINICAL PROVIDER TRAINER IMPRESSION: 1. No acute process identified in the chest. 2. Mild paraseptal and centrilobular emphysema. Dictated by Gerardo Casarez MD (executive vice president). I, Dr. DIXON ODONNELL M.D. have personally reviewed and interpreted this examination/study. This report was electronically signed by DIXON ODONNELL M.D. ??on 09/15/2018 9:56 AM . Narrative 09/15/2018 9:56 AM CLINICAL PROVIDER TRAINER EXAMINATION: Computed tomography (CT) of the chest [...] centrilobular emphysema. Dictated by Gerardo Casarez MD (executive vice president). I, Dr. DIXON ODONNELL M.D. have personally reviewed and interpretedthis examination/study. This report was electronically signed by DIXON ODONNELL M.D. on 09/15/2018 9:56 AM . Edith Hemphill MD CT ORDERABLES documented in this encounter Visit Diagnoses Diagnosis COPD exacerbation (HCC)- Primary Obstructive chronic bronchitis with exacerbation Encounter for immunization Need for other specified prophylactic vaccination against single bacterial disease Panlobular emphysema (HCC) Other emphysema SHAYNE (obstructive sleep apnea) Obstructive sleep apnea (adult) (pediatric) Orthopnea Opacity of lung on imaging study COPD exacerbation (HCC) Obstructive chronic bronchitis with exacerbation Panlobular emphysema (HCC) Other emphysema COPD exacerbation (HCC) Obstructive chronic bronchitis with exacerbation Panlobular emphysema (HCC) Other emphysema COPD exacerbation (HCC) Obstructive chronic bronchitis with exacerbation Panlobular emphysema (HCC) Other emphysema documented in this encounter
--- OUTSIDE RECORDS SUMMARY | 2024-10-30 06:52 | XMS_ITS | Encounter Summary ---
Author Organization [facility] Address [address] [place] [address] Care Team Providers Care Binder Cutter Name Role Phone Monica Tellez Gavin ROVING WEIGHT GAUGER-HAND SILVERING SUPERVISOR Primary Care Provi cristobal Reason for Visit * Reason Comments Refill Request Encounter Details Date Type Department Care Team ([facility] Contact Info) Description 08/09/2019 Refill [facility] [address] [place] [address] Edith Hemphill MD [address] [place] [address] Refill Request Social History Tobacco Use Types [...] Notes * Telephone Encounter - Shari Kauffman - 08/09/2019 5:24 PM CDT Last filled 07/11/19 documented in this encounter Plan of Treatment Not on file documented as of this encounter Visit Diagnoses Not on filedocumented in this encounter Care Teams Binder Cutter Relationship Specialty Start Date End Date Monica Tellez, RUSS-HAND SILVERING SUPERVISOR PCP - General 07/03/19 11/13/19 documented as of this encounter
--- OUTSIDE RECORDS SUMMARY | 2024-10-30 06:52 | XMS_ITS | Encounter Summary ---
Author Organization [facility] Address [address] [place] [address] Care Team Providers Care Supervisor Fur Dressing Name Role Phone Ish Buchanan MD Primary Care Provider Encounter Details Date Type Department Care Team (Latest Contact Info) Description 09/14/2018 12:43 PM [facility] Hospital Encounter [facility] PFT [address] [place] [address] Edith Hemphill MD [address] [place] [address] Discharge Disposition: Home or Self Care Social [...] Procedure Name Priority Date/Time Associated Diagnosis Comments SIX MINUTE WALK Routine 09/17/2018 6:49 AM MANUFACTURING PLANT CONTROLLER COPD exacerbation (HCC) Panlobular emphysema (HCC) documented in this encounter Results * SIX MINUTE WALK (09/17/2018 6:49 AM MANUFACTURING PLANT CONTROLLER) Impressions Diego Balderas MD - 09/17/2018 6:49 AM MANUFACTURING PLANT CONTROLLER [facility] DEPARTMENT OF PULMONARY, CRITICAL CARE, [...] Diego Balderas MD - 09/17/2018 6:49 AM MANUFACTURING PLANT CONTROLLER Chencho Ambrocio MD ? 09/14/2018 ??4:47 PM Edith Hemphill MD RESPIRATORY THERAPY ORDERABLES documented in this encounter Visit Diagnoses Diagnosis COPD exacerbation (HCC) Obstructive chronic bronchitis with exacerbation Panlobular emphysema (HCC) Other emphysema documented in this encounter Care Teams Supervisor Fur Dressing Relationship Specialty Start Date End Date Ish Buchanan MD [address] [place] [id number] PCP - General 08/15/18 06/17/19 documented as of this encounter
--- OUTSIDE RECORDS SUMMARY | 2024-10-30 06:52 | XMS_ITS | Encounter Summary ---
Author Organization [facility] Address [address] [facility] [place] [address] Care Team Providers Care Marketing Database Consultant Name Role Phone Monica Tellez SALES CONSULTANT-ASSISTANT ART DIRECTOR Primary Care Provi cristobal Ian Pollock MD Primary Care Provider [phone] Ian Pollock MD Primary Care Provider [phone] Ian Pollock MD Primary Care Provider [phone] Ian Pollock MD Primary Care Provider [phone] Ian Pollock MD Primary Care Provider [phone] Katina Casiano DO Unavailable [phone] Xavi ACOSTA MD, Fred R Primary Care Provider + Katina Casiano DO Unavailable [phone] Tracey Ang PA Unavailable [phone] Belkis Angel SALES CONSULTANT-ASSISTANT ART DIRECTOR Primary Care Provider + Natalie Baum Primary Care Provider [phone] Reason for Visit * Reason Onset Date Comments Results 10/25/2019 Encounter Details Date Type Department Care Team (Late st Contact Info) Description 10/25/2019 Telephone [facility] [address] [address] Monica Tellez SALES CONSULTANT-ASSISTANT ART DIRECTOR [address] [place] [address] Results Social History Tobacco Use Types Packs/Day [...] Telephone Encounter - Janice Conn RN - 10/31/2019 12:18 PM AUDIO TAPE LIBRARIAN Pt calling again stating that [facility] Rosalinda had sent him for a Cardiac Ultrasound. This TNs. Found HCTTE 2D w/Con Doppler/color CMPT Done 10/25/2019, in chart under Cardiac tab, Faxed to [facility]. Pt request callback: [phone]. Pt seems very nervous about his results. O TAPE LIBRARIAN * Telephone Encounter - Monica Tellez APRN-CNP - 10/25/2019 1:56 PM AUDIO TAPE LIBRARIAN Please find out what ultrasound he had. Have not ultrasound results. Who would have ordered this and where?? [facility] O TAPE LIBRARIAN * Telephone Encounter - Maria Isabel William RN - 10/25/2019 1:47 PM CST Patient nervous about ultrasound result Please call [phone] O TAPE LIBRARIAN documented in this encounter Plan of Treatment [...] on filedocumented in this encounter Care Teams Marketing Database Consultant Relationship Specialty Start Date End Date Monica Tellez APRN-ASSISTANT ART DIRECTOR PCP - General 07/03/19 11/13/19 Ian Pollock MD PCP - General 11/14/19 12/12/19 Ian Pollock MD PCP - General 12/13/19 05/25/20 Ian Pollock MD PCP - General 05/26/20 06/15/20 Ian Pollock MD [address] [facility] [place] [place] [address] PCP - General 07/31/20 08/20/20 Ian Pollock MD [address] [facility] [place] [address] PCP - General 08/21/20 05/29/23 Jameel Hurley III, MD [address] [place] [address] PCP - General Internal Medicine 06/05/23 08/28/23 Belkis Angel, SALES CONSULTANT-ASSISTANT ART DIRECTOR [address] [place] [address] PCP - General Nurse Practitioner 08/29/23 05/05/24 Natalie Baum [address] [place] [address] PCP - General 05/06/24 Katina Casiano DO [address] OF GEN [facility]IC[facility] [place], [place] Resident - PCP Internal Medicine 08/10/22 05/29/23 Katina Casiano DO [address] OF [facility]NAL [facility]IC[facility] [place], [place] Hospitalist 06/05/23 Tracey Ang PA [address] [facility] [address] [place] [address] Physician Shortage Worker 08/15/23 documented as of this encounter
--- OUTSIDE RECORDS SUMMARY | 2024-10-30 06:52 | XMS_ITS | Encounter Summary ---
Author Organization [facility] Address [address] [place] [address] Care Team Providers Care Electronic Science Teacher Name Role Phone Ish Buchanan MD Primary Care Provider [phone] Reason for Visit * Other Medical (Routine) - Closed Specialty Diagnoses / Procedures Referred By Florentino t Referred To Contact Radiology Procedures HC IR EPIDURAL INJECTION Alexsandra Rosa PA-C [address] [place] [address] [facility] Ivr [address] [place] [address] Referral ID Status Reason Start Date Expiration Date Visits Re quested Visits Authorized [id number] Closed 11/14/2018 05/13/2019 1 1 Encounter Details Date Type Department Care Team (Late st Contact Info) Description 11/14/2018 10:02 AM CHEMICAL ENGINEER - 11/14/2018 12:09 PM [facility] Hospital Encounter [facility] [address] [place] [address] Alexsandra Rosa PA-C [address] [place] [address] Jose Cummings MD [address] [facility] [place] [address] Interven Radiology Discharge Disposition: Home or Self [...] Sign Reading Time Taken Comments Blood Pressure 152/93 11/14/2018 10:25 AM CHEMICAL ENGINEER Pulse 62 11/14/2018 10:25 AM CHEMICAL ENGINEER Temperature 36.9 ??C (98.4 ??F) 11/14/2018 10:[address] Respiratory Rate 18 11/14/2018 10:25 AM CHEMICAL ENGINEER Oxygen Saturation - - Inhaled Oxygen Concentration - - Weight - - Height - - Body Mass Index - - documented in this encounter Functional Status Functional [...] 08/01/2018 10/10/2019 documented as of this encounter Progress Notes * Nathalie Egan RN - 11/14/2018 12:09 PM CST Called to check patient post L4L5 ANGI. He said yesterday his pain was a 7/10. Sometimes it was up to a 10. Today post procedure his pain is 0/10. Very happy with the results. Report mailed to his PCP. Nathalie Egan RN IVC Coordinator ICAL ENGINEER * Edie Espinoza RN - 11/14/2018 12:08 PM CST Patient discharged. ICAL ENGINEER * Carolyn Christie RN - 11/14/2018 12:05 PM CST In room 9 for discharge instructions. Discharged to home. ICAL ENGINEER * Nathalie Egan RN - 11/02/2018 8:34 AM CST Patient called. He had to cancel his last appointment due to a family emergency. He has rescheduled. His pain is 10/10 at times. Reviewed arrival date, time and place. Orders are in place. He is arranging medicab for transportation. Nathalie Egan COGNOS IVR Coordinator ICAL ENGINEER documented in this encounter H&P Notes * Manjit Echavarria MD - 11/14/2018 12:03 PM CST Vascular & Interventional Radiology Short Pre-Procedure History & Physical Patient: Josafat Calvo Age: 58 y.o. Date of : 1960 Date: 11/14/2018 Location: VIR Subjective: 58 y.o. male with back pain who presents today for image guided bilateral L4-5 transforaminal epidural steroid injections Past Medical History: Diagnosis Date ??? Arthritis ??? Bipolar I disorder, most recent episode (or current) unspecified ??? Carpal tunnel syndrome ??? COPD (chronic obstructive pulmonary disease) 2009 ??? Generalized anxiety disorder ??? History of drug abuse ??? Hypertension ??? Nondependent abuse of drugs Past Surgical History: Procedure Laterality Date ??? ENDOSCOPY, COLON, DIAGNOSTIC ??? HAND SURGERY Left ??? Knee Replacement Right Prescriptions Prior to Admission Medication Sig Dispense Refill ??? albuterol (PROVENTIL;VENTOLIN) (2.5 MG/3ML) 0.083% nebulizer solution Inhale 2.5 mg by mouth every 4 hours as needed for Shortness of Breath (Patient not taking: Reported on 11/14/2018) 25 vial 2 ??? buPROPion SR 12hr (WELLBUTRIN-SR) 150 MG tablet 0 ??? carvedilol (COREG) 25 MG tablet Take 1 Tab by mouth 2 times daily Reasons: High Blood Pressure of Unknown Cause 0 0 ??? hydrOXYzine pamoate (VISTARIL) 50 MG capsule Take 50 mg by mouth ??? Ibuprofen (MOTRIN IB PO) ??? meloxicam (MOBIC) 7.5 MG tablet TK 1 T PO D 0 ??? methocarbamol (ROBAXIN) 500 MG tablet Take 1 tablet by mouth every 6 hours as needed for MuscleSpasms (Patient not taking: Reported on 11/14/2018) 60 tablet 1 ??? omeprazole (PRILOSEC) 20 MG capsule Take 1 capsule by mouth once daily 30 capsule 0 ??? Pseudoephedrine-Guaifenesin (MUCINEX D PO) ??? raNITIdine (ZANTAC) 300 MG tablet TK ONE T PO BID 2 ??? sildenafil (REVATIO) 20 MG tablet TAKE 2 5 TABLET OTHER NEEDED HOUR PRIOR TO INTERCOURSE 1 ??? spironolactone (ALDACTONE) 50 MG tablet Take 1 tablet by mouth once daily 90 tablet 4 ??? umeclidinium-vilanterol (ANORO ELLIPTA) 62.5-25 MCG/INH inhaler Inhale 1 puff by mouth once daily (Patient not taking: Reported on 11/14/2018) 1 Inhaler 0 ??? VENTOLIN HFA 108 (90 BASE) MCG/ACT inhaler INL 2 PFS PO QID PRN 0 Allergies Allergen Reactions ??? Lisinopril Anaphylaxis ??? Pcn [Penicillins] Anaphylaxis ??? Penicillin G Swelling Social History Substance Use Topics ??? Smoking status: Current Every Day Smoker Packs/day: 1.00 Years: 25.00 Types: Cigarettes ??? Smokeless tobacco: Never Used Comment: Smoked for 30 years. ??? Alcohol use 3.6 oz/week 6 Cans of beer per week Comment: beer madi. 25 oz 3 times a week Family History Problem Relation Age of Onset ??? Cancer - Colon Mother ??? Heart Failure Father ??? Hypertension Sister ??? Cancer - Lung Brother 53 A comprehensive review of systems was negative except: as stated in the HPI. Objective: Physical examination: Patient Vitals for the past 8 hrs: BP Temp Pulse Resp 11/14/18 1025 152/93 98.4 ??F (36.9 ??C) 62 18 General: well nourished, no acute distress HEENT: atraumatic, no jaundice, no scleral icterus Lungs: normal respiratory effort CV: regular rate Abdomen: soft, nontender, nondistended Neuro: no gross focal deficits Psych: AOx3 Laboratory results: No results for input(s): WBC, HGB, HCT, PLT, PLTCOUNT, PLATELET in the last 83373 hours. No results for input(s): INR in the last 30102 hours. No results for input(s): NA, K, GLUCOSE, CREATININE, EGFR in the last 39943 hours. No results for input(s): ALB, TBILI, ALT, AST, ALKPHOS in the last 47254 hours. Imaging: Relevant imaging studies were personally reviewed by myself and the IR attending. Assessment: 58 y/o male with back pain, presents today for image guided b/l L4-5 transforaminal epidural steroid injections Plan: 1. Pertinent labs and relevant imaging studies were reviewed. 2. Informed consent was obtained from the patient after explaining the risks, benefits, and alternatives of the procedure. Risks include but are not limited to infection, bleeding, and injury to surrounding structures. 3. All questions were answered to the best of my ability. 4. Planned procedure: Image guided b/l L4-5 transforaminal epidural steroid injections ICAL ENGINEER Associated attestation - Ashley Ferris MD - 11/14/2018 12:27 PM CHEMICAL ENGINEER Attending Physician Attestation: For this patient encounter, I have reviewed the resident's note. I have personally reviewed the patient's labs, imaging, medications, and allergies. I agree with the history, physical exam findings, assessment, and plan. Ashley Ferris MD Vascular & Interventional Radiology 11/14/2018 12:27 PM documented in this encounter OR Notes * Brief Op Note - Ashley Ferris MD - 11/14/2018 12:05 PM CST Vascular & Interventional Radiology Brief Post-Procedure Note Patient: Josafat F Umesh Attending: Dr. Ferris Optician Apprentice: Dr. Skopec Diagnosis: 58 y/o male with back pain and lumbar spondylosis Procedure: Bilateral L4-5 transforaminal nerve root steroid injections under fluoroscopic guidance. Findings: A mixture of 1 mL betamethasone (6 mg/mL) and 1 mL 0.5% bupivacaine was injected on each side. The patient's pain was 6/10 prior to the procedure and 1/10 after the procedure. Anesthesia: Local with 1% Lidocaine Additional medications given: None Estimated blood loss: Minimal Specimens: None Immediate complications: None See detailed procedure note with images in PACS (Synapse). ICAL ENGINEER documented in this encounter Plan of Treatment Not on file documented as of this encounter Procedures Procedure Name Priority Date/Time Associated Diagnosis Comments FL NERVE BLOCK L OR S UNILAT Routine 11/14/2018 11:58 AM CHEMICAL ENGINEER Osteoarthritis of spine with radiculopathy, lumbar region documented in this encounter Results * FL NERVE BLOCK L OR S UNILAT (11/14/2018 11:58 AM CHEMICAL ENGINEER) Anatomical Region Laterality Modality Spine X-Ray Angiograph y Narrative 11/14/2018 12:51 PM CHEMICAL ENGINEER History: 58 year old male with chronic [...] performed/was present throughout the procedure. Reading Radiologist: Ashley Ferris MD on 11/14/2018 at 12:51 PM Alexsandra Rosa PA-C FLUOROSCOPY ORD ERABLES documented in this encounter Visit Diagnoses Diagnosis Lumbar spondylosis- Primary Lumbosacral spondylosis without myelopathy documented in this encounter Administered Medications Inactive Administered Medications - up to 3 most recent administrations Medication Order MAR Action Action Date Dose Rate Site betamethasone acet & sod phos (CELESTONE) injection 18 mg 18 mg, Intramuscular, ONCE, 1 dose, On Mon11/14/18 at 1115, Protect from light., Pre-procedure (IR) $ Given 11/14/2018 11:17 AM CHEMICAL ENGINEER 18 mg Back bupivacaine PF (MARCAINE PF) 0.5 % injection Infiltration, ONCE, 1 dose, On Mon11/14/18 at 1100, Pre-procedure (IR) $ Given 11/14/2018 11:18 AM CHEMICAL ENGINEER 30 mL iohexol (OMNIPAQUE 180) contrast Injection, CONTRAST ONCE, Starting on Mon11/14/18 at 1114, Until Mon11/14/18 at 1310, Used for myelograms $ Given - Contrast 11/14/2018 11:18 AM CHEMICAL ENGINEER 10 mL lidocaine (XYLOCAINE MPF) 1 % injection Infiltration, ONCE, 1 dose, On Mon11/14/18 at 1130 $ Given 11/14/2018 11:19 AM CHEMICAL ENGINEER 50 mg documented in this encounter Active and Recently Administered Medications Times are shown in CHEMICAL ENGINEER. Scheduled Medication Order 11/12/2018 11/13/2018 11/14/2018 betamethasone acet & sod phos (CELESTONE) injection 18 mg (COMPLETED) 18 mg, Intramuscular, ONCE, 1 dose, On Mon11/14/18 at 1115, Protect from light., Pre-procedure (IR) 1117 ($ Given - Prov ider: Chelsey Juarez) bupivacaine PF (MARCAINE PF) 0.5 % injection (COMPLETED) Infiltration, ONCE, 1 dose, On Mon11/14/18 at 1100, Pre-procedure (IR) 1118 ($ Given - Prov ider: hCelsey Juarez) iohexol (OMNIPAQUE 180) contrast Injection, CONTRAST ONCE, Starting on Mon11/14/18 at 1114, Until Mon11/14/18 at 1310, Used for myelograms 1118 ($ Given - Cont rast - Provider: Chelsey Juarez) lidocaine (XYLOCAINE MPF) 1 % injection (COMPLETED) Infiltration, ONCE, 1 dose, On Mon11/14/18 at 1130 1119 ($ Given - Prov ider: Chelsey Juarez) documented in this encounter Care Teams Electronic Science Teacher Relationship Specialty Start Date End Date Ish Buchanan MD [address] [place] [id number] PCP - General 08/15/18 06/17/19 documented as of this encounter
--- OUTSIDE RECORDS SUMMARY | 2024-10-30 06:52 | XMS_ITS | Encounter Summary ---
Author Organization [facility] Address [address] [facility] [place] [address] Care Team Providers Care Remote Pilot Operator Name Role Phone Ian Pollock MD Primary Care Provider [phone] Reason for Referral * Radiology Services (Routine) - Closed Specialty Diagnoses / Procedures Referred By Contac t Referred To Contact Magnetic Resonance Imaging Diagnoses Lumbar stenosis with neurogenic claudication Procedures MRI LUMBAR SPINE WO CONTRAST April Mora MD [address] [facility] [place] [address] Referral ID Status Reason Start Date Expiration Date Visits Re quested Visits Authorized [id number] Closed 11/04/2019 12/19/2019 1 1 RINTENDENT ELECTRIC POWER Reason for Visit * Radiology Services (Routine) - Closed Specialty Diagnoses / Procedures Referred By Contac t Referred To Contact Magnetic Resonance Imaging Diagnoses Lumbar stenosis with neurogenic claudication Procedures MRI LUMBAR SPINE WO CONTRAST April Mora MD [address] [facility] [place] [address] Referral ID Status Reason Start Date Expiration Date Visits Re quested Visits Authorized [id number] Closed 11/04/2019 12/19/2019 1 1 Encounter Details Date Type Department Care Team (Late st Contact Info) Description 11/29/2019 2:27 PM SUPERINTENDENT ELECTRIC POWER - 11/29/2019 11:59 PM SUPERINTENDENT ELECTRIC POWER Hospital Encounter [facility] MRI [address] [place] [id number] April Mora MD [address] [facility] [place] [address] Discharge Disposition: Home or Self Care Social [...] by mouth once daily 90 tablet 4 11/05/2019 01/28/2020 buPROPion SR 12hr (WELLBUTRIN-SR) 150 MG tablet [...] eczema 60 g 1 11/05/2019 10/08/2020 Umeclidinium Aurora (INCRUSE ELLIPTA IN) 021 ziprasidone (GEODON) 20 [...] Procedure Name Priority Date/Time Associated Diagnosis Comments MRI LUMBAR SPINE WO CONTRAST Routine 11/29/2019 3:43 PM SUPERINTENDENT ELECTRIC POWER Lumbar stenosis with neurogenic claudication documented in this encounter Results * MRI LUMBAR SPINE WO CONTRAST (11/29/2019 3:43 PM SUPERINTENDENT ELECTRIC POWER) Anatomical Region Laterality Modality Spine Magnetic Resonan ce 11/29/2019 3:39 PM SUPERINTENDENT ELECTRIC POWER Impressions 11/29/2019 4:05 PM SUPERINTENDENT ELECTRIC POWER IMPRESSION: Severe degenerative changes at L5-S1 with [...] 4:05 PM . Narrative 11/29/2019 4:05 PM SUPERINTENDENT ELECTRIC POWER EXAMINATION: Magnetic resonance imaging (MRI) of the [...] Visit Diagnoses Diagnosis Lumbar stenosis with neurogenic claudication Spinal stenosis, lumbar region, with neurogenic claudication documented in this encounter Care Teams Remote Pilot Operator Relationship Specialty Start Date End Date Ian Pollock MD PCP - General 11/14/19 12/12/19 documented as of this encounter
--- OUTSIDE RECORDS SUMMARY | 2024-10-30 06:52 | XMS_ITS | Encounter Summary ---
Author Organization [facility] Address [address] [facility] [address] Care Team Providers Care Scene Shifter Name Role Phone Link, Bridget Segura Primary Care Provider [phone] Reason for Referral * Radiology Services (Routine) - Closed Specialty Diagnoses / Procedures Referred By Florentino lowe Referred To Contact Fluoroscopy Diagnoses Bilateral primary osteoarthritis of hip Procedures FL JOINT INJECTION OR ASPIRATE Alexsandra Rosa PA-C [address] [place] [address] Referral ID Status Reason Start Date Expiration Date Visits Re quested Visits Authorized [id number] Closed 05/20/2019 11/16/2019 1 1 Reason for Visit * Radiology Services (Routine) - Closed Specialty Diagnoses / Procedures Referred By Florentino lowe Referred To Contact Fluoroscopy Diagnoses Bilateral primary osteoarthritis of hip Procedures FL JOINT INJECTION OR ASPIRATE Alexsandra Rosa PA-C [address] [place] [address] Referral ID Status Reason Start Date Expiration Date Visits Re quested Visits Authorized [id number] Closed 05/20/2019 11/16/2019 1 1 Encounter Details Date Type Department Care Team (Latest Contact Info) Description 06/26/2019 8:57 AM CDT Hospital Encounter [facility] [address] [place] [address] Alexsandra Rosa PA-C [address] [place] [address] Discharge Disposition: Home or Self Care Social [...] daily 90 tablet 4 08/09/2018 07/11/2019 Umeclidinium Patriot (INCRUSE ELLIPTA IN) 021 VENTOLIN HFA 108 (90 BASE) MCG/ACT inhaler INL 2 PFS PO QID PRN 0 08/01/2018 10/10/2019 documented as of this encounter Plan of Treatment Not on file documented as of this encounter Procedures Procedure Name Priority Date/Time Associated Diagnosis Comments FL JOINT INJECTION OR ASPIRATE Routine 06/26/2019 11:10 AM CDT Bilateral primary osteoarthritis of hip [...] the procedure. Dictated by Kunal Yates M.D. (vice president payment). I, Dr. BOOKER DEE MD have personally [...] under fluoroscopy. Once verified, 2 mL of Yczcixc26 (80 mg total) and 4 mL of 1 % lidocaine were injected into the joint. IMPRESSION: 1. Successful fluoroscopic guided therapeutic right hip injection. 2. Successful fluoroscopic guided therapeutic left hip injection. Dr. Dee was present during the procedure. Dictated by Kunal Yates M.D. (vice president payment). I, Dr. BOOKER DEE MD have personally [...] % contrast Intravenous, CONTRAST ONCE, Starting on Mon06/26/19 at 1113, Until Evette 06/27/19 at 0129 $ Given - Contrast 06/26/2019 10:30 AM CDT 1 mL Left Hip Restarted 06/26/2019 10:00 AM CDT lidocaine (XYLOCAINE) 1 % injection Subcutaneous, ONCE, 1 dose, On Mon06/26/19 at 1130 $ Given 06/26/2019 10:28 AM CDT 15 mg See Comments triamcinolone acetonide (KENALOG-40) injection 40 mg 40 mg, Intra-articular, ONCE, 1 dose, On Mon06/26/19 at 1130, Shake well before using. $ Given 06/26/2019 10:30 AM CDT 40 mg Left Hip documented in this encounter Care Teams Scene Shifter Relationship Specialty Start Date End Date Link, Bridget Segura DO [address] [place] [address] PCP - General 06/18/19 07/02/19 documented as of this encounter
--- OUTSIDE RECORDS SUMMARY | 2024-10-30 06:52 | XMS_ITS | Encounter Summary ---
Author Organization [facility] Address [address] [facility] [place] [address] Care Team Providers Care Car Body Inspector Name Role Phone Monica Tellez APRN-HAND CLOTH FOLDER Primary Care Provi cristobal Reason for Visit * Reason Comments Refill Request Encounter Details Date Type Department Care Team ([facility] Contact Info) Description 10/28/2019 Refill [facility] General Internal Medicine [address] [facility] [address] [place] [address] Monica Tellez CONFERENCE ASSISTANT-HAND CLOTH FOLDER [address] [place] [id number] Refill Request Social History Tobacco Use Types [...] encounter Miscellaneous Notes * Telephone Encounter - SherlyjosephineJayleen - 10/29/2019 8:15 AM CST Refill request sent per protocol to provider EDELMIRA 09-13-19 NOV 11-05-19 [facility] documented in this encounter Plan of Treatment [...] on filedocumented in this encounter Care Teams Car Body Inspector Relationship Specialty Start Date End Date Monica Tellez, CONFERENCE ASSISTANT-HAND CLOTH FOLDER PCP - General 07/03/19 11/13/19 documented as of this encounter
--- OUTSIDE RECORDS SUMMARY | 2024-10-30 06:52 | XMS_ITS | Encounter Summary ---
Author Organization [facility] Address [address] [facility] [place] [address] Care Team Providers Care Patient Transporter Name Role Phone Unavailable Primary Care Provider Unavailabl e Encounter Details Date Type Department Care Team (Late st Contact Info) Description 08/09/2018 Orders Only [facility] Pulmonary, Critical Care and Sleep Medicine [address] [place] [address] Edith Hemphill MD [address] [place] [address] Orthopnea Social History Tobacco Use Types Packs/Day Years [...] as of this encounter Visit Diagnoses Diagnosis Orthopnea documented in this encounter
--- OUTSIDE RECORDS SUMMARY | 2024-10-30 06:52 | XMS_ITS | Encounter Summary ---
Author Organization [facility] Address [address] [facility] [facility] [place] [address] Care Team Providers Care Preschool Teacher Aide Name Role Phone Monica Tellez PHOTOCOPYING MACHINE OPERATOR-FOOD ADVISER Primary Care Provi cristobal Ian Pollock MD Primary Care Provider [phone] Ian Pollock MD Primary Care Provider [phone] Ian Pollock MD Primary Care Provider [phone] Ian Pollock MD Primary Care Provider [phone] Ian Pollock MD Primary Care Provider [phone] Katina Casiano DO Unavailable Xavi ACOSTA MD, Fred R Primary Care Provider + Katina Casiano DO Unavailable [phone] Tracey Ang PA Unavailable [phone] Belkis Angel PHOTOCOPYING MACHINE OPERATOR-FOOD ADVISER Primary Care Provider + Natalie Baum Primary Care Provider [phone] Reason for Visit * Reason Onset Date Comments Appointment 09/11/2019 Encounter Details Date Type Department Care Team (Late st Contact Info) Description 09/11/2019 Telephone [facility] General Internal Medicine [address] [address] Monica Tellez PHOTOCOPYING MACHINE OPERATOR-FOOD ADVISER [address] [place] [address] Appointment Social History Tobacco Use Types Packs/Day [...] encounter Miscellaneous Notes * Telephone Encounter - Maria Isabel William RN - 09/11/2019 7:53 AM CST Patient calling he had a reaction to lisinopril again and was in ER for facial swelling. Say he wasalso having PVCs on heart monitor. Needs Follow up ER appt . Scheduling opens at 8am. Will call patient back Called patient back And Warm transfer to scheduling Call disconnected Called again warm transfer to scheduling [facility] documented in this encounter Plan of Treatment [...] on filedocumented in this encounter Care Teams Preschool Teacher Aide Relationship Specialty Start Date End Date Monica Tellez, PHOTOCOPYING MACHINE OPERATOR-FOOD ADVISER PCP - General 07/03/19 11/13/19 Ian Pollock MD PCP - General 11/14/19 12/12/19 Ian Pollock MD PCP - General 12/13/19 05/25/20 Ian Pollock MD PCP - General 05/26/20 06/15/20 Ian Pollock MD [address] [place] [address] PCP - General 07/31/20 08/20/20 Ian Pollock MD [address] [place] [address] PCP - General 08/21/20 05/29/23 Jameel Hurley III, MD [address] [facility] [address] PCP - General Internal Medicine 06/05/23 08/28/23 Belkis Angel, PHOTOCOPYING MACHINE OPERATOR-FOOD ADVISER [address] [address] PCP - General Nurse Practitioner 08/29/23 05/05/24 Natalie Baum [address] [place] [address] PCP - General 05/06/24 Katina Casiano DO [address] [facility] [address] DIV OF GEN INTERNAL MEDICINE [place], [place] Resident - PCP Internal Medicine 08/10/22 05/29/23 Katina Casiano DO [address] [facility] [address] DIV OF [facility] INTERNAL MEDIC[facility] [place], [place] Hospitalist 06/05/23 Tracey Ang PA [address] [facility] [address] [place] [address] Physician Knitting Tester 08/15/23 documented as of this encounter
--- OUTSIDE RECORDS SUMMARY | 2024-10-30 06:52 | XMS_ITS | Encounter Summary ---
Author Organization [facility] Address [address] [place] [address] Care Team Providers Care Technical Administrator Name Role Phone Monica Tellez APRN-METEOROLOGIST LIAISON Primary Care Provi cristobal Reason for Visit * Reason Comments Follow-up Encounter Details Date Type Department Care Team (Late Contact Info) Description 11/05/2019 9:30 AM [address] MERCHANDISE PLANNER Office Visit [facility] General Internal Medicine [address] [facility] [address] [place] [address] Monica Tellez APRN-METEOROLOGIST LIAISON [address] [facility] [place] [address] Essential hypertension (Primary Dx); Tobacco abuse; Mitral valve insufficiency, unspecified etiology Social History [...] Sign Reading Time Taken Comments Blood Pressure 136/90 11/05/2019 12:[address] MERCHANDISE PLANNER Pulse 84 11/05/2019 9:27 AM SR. MERCHANDISE PLANNER Temperature 36.8 ??C (98.2 ??F) 11/05/2019 9:27 AM CS T Respiratory Rate - - Oxygen Saturation 96% 11/05/2019 9:27 AM SR. MERCHANDISE PLANNER Inhaled Oxygen Concentration - - Weight 108.9 kg (240 lb) 11/05/2019 9:27 AM SR. MERCHANDISE PLANNER Height - - Body Mass Index 35.44 08/26/2019 11:24 AM CDT documented in this [...] Instructions * Patient Instructions* Liudmila Welch - 11/05/2019 9:29 AM SR. MERCHANDISE PLANNER How to Contact Us Between Office Visits [...] to be seen. Please call us at [phone], option 1 thenoption 1 in the morning you would like to be seen. For scheduling routine appointments, requesting refills or leaving a message for your doctor, the office phone is [phone]. You will be given options to get to the assistance you need. Phone lines are open from 8:00 am to4:30 pm Monday through Monday. All prescription refills must be requested during regular office phone hours. Our fax number is [phone]. After hours urgent calls that cannot wait untill phone lines are open on the next business day are given to the General Internal Medicine physician cash person. Please call [phone]. Identify yourself as a patient in our practice and give the convertible power shovel operator your doctor's name. The convertible power shovel operator will contact the physician cash person. You can generally expect a return call within 30 minutes. On weekends, physicians are seeing hospitalized patients and there maybe a longer wait. Visit our website at [email or web address] for information about our practice and [...] * Not showing up for an appointment . MERCHANDISE PLANNER documented in this encounter Progress Notes * Monica Tellez, COMMISSION CLERK-METEOROLOGIST LIAISON - 11/04/2019 2:08 PM CST HPI: Josafat Calvo is a 59 year old male is here for routine visit. Seen here last in August complaining of left lateral calf pain. He is very concerned about his ECHO results since he was told of thickened heart in past. CC: Worried about heart. Wants to see hematology nurse educator. Patient Active Problem List: Major depressive disorder, single episode, severe without psychotic features--stable COPD exacerbation--followed in Pulmonary Panlobular emphysema Opacity of lung on imaging study Tobacco abuse--continues to smoke 1/4 PPD but plans on quitting. No stop date chosen. Essential hypertension Lumbar spondylosis Past History and Surgical History Reviewed under History tab -- Lisinopril -- Anaphylaxis -- Pcn [Penicillins] -- Anaphylaxis -- Penicillin G -- Swelling Current Outpatient Medications: albuterol HFA (PROVENTIL;VENTOLIN;PROAIR) 108 (90 Base) MCG/ACT inhaler Inhale 2 puffs by mouth every 4 hours as needed for Wheezing Disp: 1 Inhaler Rfl: 6 amLODIPine (NORVASC) 5 MG tablet Take 1 tablet by mouth once daily Disp: 30 tablet Rfl: 3 buPROPion SR 12hr (WELLBUTRIN-SR) 150 MG tablet Disp: Rfl: 0 carvedilol (COREG) 25 MG tablet TAKE 1 TABLET BY MOUTH TWICE DAILY Disp: 60 tablet Rfl: 2 hydrOXYzine pamoate (VISTARIL) 50 MG capsule Take [...] eczema Disp: 60 g Rfl: 0 Umeclidinium [place] (INCRUSE ELLIPTA IN) Disp: Rfl: No current facility-administered medications for this visit. Review of Systems Constitutional: Negative. HENT: Negative. Eyes: Negative. Up to date on eye exam. Respiratory: Positive for shortness of breath. Chronic SOB Cardiovascular: Negative. Gastrointestinal: Positive for heartburn. Genitourinary: Negative. Musculoskeletal: Positive for back pain. Skin: Negative. Neurological: Negative. Psychiatric/Behavioral: Negative. Family and Social History Reviewed under History Tab OBJECTIVE: BP 140/100 Pulse 84 Temp 98.2 ??F (36.8 ??C) (Oral) Wt 240 lb (108.9 kg) SpO2 96% BMI 35.44 kg/m2 136/90 repeat He appears well, in no apparent distress. He is worried about his heart. Alert and oriented times three, pleasant and cooperative. Lungs--clear A&P Cor--S1 S2 RRR no murmurs Ext--no edema. ECHO 10/25/19 Left ventricular systolic function is mildly decreased [...] pulmonary arterial systolic pressure is 29 mmHg. Recent Labs Component Name 09/19/19 0917 07/25/19 0935 07/25/19 SODIUM 136 136 - POTASSIUM 4.3 4.7 4.7 CHLORIDE 104 105 - CO2 22 24 - BUN 8 15 - CREATININE 0.90 0.88 0.88 GLUCOSE 114* 86 - CALCIUM 9.8 9.5 - ALT - 20 20* ALKPHOS - 108 - AST - 17 17 TBIL - 0.3 - TPROT - 6.7 - EGFR 94 95 - EGFRAFR 109 111 - Recent Labs Component Name 07/25/19 0935 07/25/19 WBC 5.4 - RBC 4.53 - HGB 13.0* 13.0* HCT 39.7 40 MCV 87.6 - MCHC 32.7 - PLTCOUNT 254 - LYMPHPCT 39.6 - EOSINPCT 6.1 - BASOPHILPCT 0.6 - ASSESSMENT/PLAN Hypertension--not optimal control. Increase Amlodipine 10 mg daily. Other meds as before. Smoking--continues to smoke 1/4 PPD. Wants to stop smoking and drinking sometime this year. Discussed that Smoking was most important thing he could do for himself, especially if concerned about his heart. Moderate Mitral regurg--he is very concerned about his and wants to talk to a hematology nurse educator. Told him this would just be followed but wants to see cardiology. referfal given. Discussed vaccines--Shingrix not covered by insurance Encouraged to check with pharmacy about TDAP. RV 2 months prn sooner. Monica Tellez ANP . MERCHANDISE PLANNER documented in this encounter Plan of Treatment Not on file documented as of this encounter Goals Goal Patient Goal Type Associated Problems Recent Progress Patient-Stated? Author Mobility General No Stephanie Gallegos, RN Note: Expected end date: *10/30/2019 The goal is to maintain or improve your mobility at the optimum level for you. Interventions: documented as of this encounter Visit Diagnoses Diagnosis Essential hypertension- Primary Tobacco abuse Tobacco use disorder Mitral valve insufficiency, unspecified etiology documented in this encounter Care Teams Technical Administrator Relationship Specialty Start Date End Date Monica Tellez APRN-CNP PCP - General 07/03/19 11/13/19 documented as of this encounter
--- OUTSIDE RECORDS SUMMARY | 2024-10-30 06:53 | XMS_ITS | Encounter Summary ---
Author Organization [facility] Address [address] [place] [address]. [place], [place] [address] [place] [address] Care Team Providers Care Applications Manager Name Role Phone Amilcar Osorio MD Primary Care Provider [phone] Encounter Details Date Type Department Care Team (Latest Contact Info) Description 09/04/2018 Scan [facility] Medical [facility] , Jerry Dempsey MD Social History Tobacco Use Types Packs/Day Years Used Date Smoking Tobacco: Never Assessed Sex and Gender Information Value Date Recorded Sex Assigned at Not on file Legal Sex Male 11:29 PM CDT Gender Identity Not on file Sexual Orientation Not on file documented as of this encounter Plan of Treatment Not on file documented as of this encounter Visit Diagnoses Not on filedocumented in this encounter Care Teams Applications Manager Relationship Specialty Start Date End Date Amilcar Osorio MD [address] [facility], [facility] [address] [place] [id number] PCP - General 05/01/17 09/04/19 documented as of this encounter
--- OUTSIDE RECORDS SUMMARY | 2024-10-30 06:53 | XMS_ITS | Encounter Summary ---
Author Organization [facility] Address [address] [place] [address]. [place], [place] [address] [place] [address] Care Team Providers Care Shuttle Fitting Supervisor Name Role Phone Monica Tellez NP Primary Care Provider [phone] Reason for Visit * Reason Onset Date Comments Medication Request 02/05/2020 Encounter Details Date Type Department Care Team (Late st Contact Info) Description 02/05/2020 Telephone [facility] Medical Group Multispecialty Care - [facility] [address] [facility] [place] [address] Gina Fleming APNP [address] [address] Medication Request Social History Tobacco Use Types Packs/Day Years Used Date Smoking Tobacco: Never Assessed Sex and Gender Information Value Date Recorded Sex Assigned at Not on file Legal Sex Male 11:29 PM CDT Gender Identity Not on file Sexual Orientation Not on file documented as of this encounter Progress Notes * Florence Hylton MA - 02/05/2020 1:13 PM CDT Tried calling patient to let know that a prescription was called in. Patient didn't answer phone and line went busy. * SEBASTIAN Samuel - 02/05/2020 12:19 PM CDT Flomax sent * Florence Hylton MA - 02/05/2020 12:02 PM CDT Please advise. * Suha Ngo - 02/05/2020 10:26 AM CDT Patient was calling to request refill for medication to help with urine stream. Please call patientto follow up and let know when prescription has been sent through. documented in this encounter Plan of Treatment Not on file documented as of this encounter Visit Diagnoses Not on filedocumented in this encounter Care Teams Shuttle Fitting Supervisor Relationship Specialty Start Date End Date Monica Tellez NP PCP - General NURSE PRACTITIONER 09/05/19 documented as of this encounter
--- OUTSIDE RECORDS SUMMARY | 2024-10-30 06:53 | XMS_ITS | Encounter Summary ---
Author Organization [facility] Address [address] [place] [address]. [place], [place] [address] [place] [address] Care Team Providers Care File Drawer Finisher Name Role Phone Amilcar Osorio MD Primary Care Provider [phone] Monica Tellez MOTION PICTURE SET UP WORKER Primary Care Provider [phone] Encounter Details Date Type Department Care Team (Late st Contact Info) Description 04/09/2018 Hosp Visit [facility] Outpatient Therapy [address] [place], [place] [address] Grecia Hess, PT [place], [place] [id number] Social History Tobacco Use Types Packs/Day Years [...] on filedocumented in this encounter Care Teams File Drawer Finisher Relationship Specialty Start Date End Date Amilcar Osorio MD [address] [address] PCP - General 05/01/17 09/04/19 Monica Tellez, MOTION PICTURE SET UP WORKER [address] [address] PCP - General NURSE PRACTITIONER 09/05/19 documented as of this encounter
--- OUTSIDE RECORDS SUMMARY | 2024-10-30 06:53 | XMS_ITS | Encounter Summary ---
Author Organization [facility] Address [address] [place] [address]. [place], [place] [address] [place] [address] Care Team Providers Care Clinical Psychologist Licensed Name Role Phone Amilcar Osorio MD Primary Care Provider [phone] Encounter Details Date Type Department Care Team (Latest Contact Info) Description 07/16/2019 Scan [facility] Scanned, Documents Social History Tobacco Use Types Packs/Day Years [...] filedocumented in this encounter Care Teams Clinical Psychologist Licensed Relationship Specialty Start Date End Date Amilcar Osorio MD [address] [facility], [facility] [address] [place] [address] PCP - General 05/01/17 09/04/19 documented as of this encounter
--- OUTSIDE RECORDS SUMMARY | 2024-10-30 06:53 | XMS_ITS | Clinical Summary ---
Author Organization [facility] Address [address] [place] [address]. [place], [place] [address] [place] [address] Care Team Providers Care Painter Chassis Name Role Phone Monica Tellez NP Primary Care Provider [phone] Allergies Active Allergy Reactions Criticality Noted Date Comments Lisinopril Unknown 03/27/2015 Penicillins Swelling,Unknown,Anaphylaxis High 2011 Medications * This document contains information received from the source organization and may not represent a complete record from that organization. albuterol (2.5 MG/3ML) 0.083% nebulizer solution 0 06/14/2019 Active albuterol sulfate HFA 108 (90 Base) MCG/ACT inhaler INL 1 TO 2 PFS PO Q 6 H PRN 0 06/03/2019 Active carvedilol 25 MG tablet Take 25 mg by mouth 2 (two) times daily. 0 06/09/2019 Active latanoprost 0.005 % ophthalmic solution 01/25/2019 Active lisinopril 10 MG tablet 07/11/2019 Active omeprazole 40 MG capsule Take 40 mg by mouth daily. 5 05/14/2019 Active spironolactone 50 MG tablet 07/06/2019 Active Pseudoephedrine- guaiFENesin (MUCINEX D OR) Activ e Umeclidinium [place] (INCRUSE ELLIPTA IN) Active hydrOXYzine 50 MG tablet Take 50 mg by mouth 3 (three) times daily as needed for Itching. Active sildenafil 20 MG tabletIndication s:Erectile dysfunction, unspecified erectile dysfunction type Take 1 tablet (20 mg total) by mouth as needed. Take 2.5 tablets (50 mg) one hour prior to intercourse. 30 tablet 1 07/16/2019 Active lamoTRIgine 25 MG tablet TK 2 TS PO BID 1 07/28/2019 Active triamcinolone 0.1 % cream JACEK TO ARMS BID PRF ECZEMA 0 08/16/2019 Active TAMSULOSIN 0.4 MG CapIndications:Colton gonzalez urinary tract symptoms (LUTS) TAKE 1 CAPSULE BY MOUTH EVERY DAY 30 capsule 1 09/10/2020 Active Active Problems Patient Care Coordination No te Formatting of this note migh t be different from the original. PT precautions: R TKR, HTN, denies all others. No known active problems Social History Tobacco Use Types Packs/Day Years Used Date Smoking Tobacco: Never Assessed Sex and Gender Information Value Date Recorded Sex Assigned at Not on file Legal Sex Male 11:29 PM CDT Gender Identity Not on file Sexual Orientation Not on file Last Filed Vital Signs Vital Sign Reading Time Taken Comments Blood Pressure 142/92 09/05/2019 11:03 AM DELIVERY AGENT Pulse 60 09/05/2019 11:03 AM DELIVERY AGENT Temperature 36.5 ??C (97.7 ??F) 09/05/2019 11:[address] Respiratory Rate - - Oxygen Saturation 97% 09/05/2019 11:03 AM DELIVERY AGENT Inhaled Oxygen Concentration - - Weight 108 kg (238 lb) 09/05/2019 11:03 AM DELIVERY AGENT Height 175.3 cm (5' 9 ) 09/05/2019 11:03 AM DELIVERY AGENT Body Mass Index 35.15 09/05/2019 11:03 AM DELIVERY AGENT Plan of Treatment Health Maintenance Due Date Last Done Comments Colorectal Cancer Screening Colonoscopy (10 Years) 1961 Annual Physical 1964 Hepatitis C 1979 Zoster Vaccines (1 of 2) 2011 COVID-19 Vaccine ( - season) 2024 Influenza Adult (#1) 2024 07/11/2019, 08/09/2018, 07/17/2017, Additional history exists DTaP, Tdap and Td Vaccines (2 - Td or Tdap) 07/17/2027 07/17/2017 RSV Immunization or 60+ Years (1 - 1-dose 75+ series) 2036 Pneumococcal Vaccine: Pediatrics (0 to 5 Years) and At-Risk Patients (6 to 64 Years) Aged Out 07/11/2019 No longer eligible based on patient's age to complete this topic Meningococcal Vaccine Aged Out No scotty eugenio eligible based on patient's age to complete this topic RSV Immunizations Under 20 Months Aged Out No longer eligible based on patient's age to complete this topic Insurance [employer] Care Teams Painter Chassis Relationship Specialty Start Date End Date Monica Tellez NP PCP - General NURSE PRACTITIONER 09/05/19
--- OUTSIDE RECORDS SUMMARY | 2024-10-30 06:53 | XMS_ITS | Encounter Summary ---
Author Organization [facility] Address [address] [place] [address]. [place], [place] [address] [place] [address] Care Team Providers Care Set Up Mechanic Crown Assembly Machine Name Role Phone Amilcar Osorio MD Primary Care Provider [phone] Encounter Details Date Type Department Care Team (Late st Contact Info) Description 02/27/2019 Discharge [facility] Outpatient [place] [address] Ava Jarquin, PT Social History Tobacco Use Types Packs/Day Years [...] on filedocumented in this encounter Care Teams Set Up Mechanic Crown Assembly Machine Relationship Specialty Start Date End Date Amilcar Osorio MD [address] , [facility] [address] [place] [address] PCP - General 05/01/17 09/04/19 documented as of this encounter
--- OUTSIDE RECORDS SUMMARY | 2024-10-30 06:53 | XMS_ITS | Encounter Summary ---
Author Organization [facility] Address [address] [place] [address]. [place], [place] [address] [place] [address] Care Team Providers Care Budget Analyst Name Role Phone Amilcar Osorio MD Primary Care Provider Encounter Details Date Type Department Care Team (Late st Contact Info) Description 08/27/2019 Orders Only [facility] Medical Group Multispecialty Care - [facility] [address] [facility] [place] [phone] Gina Fleming APNP [address] [place] [address] Social History Tobacco Use Types Packs/Day Years [...] Procedure Name Priority Date/Time Associated Diagnosis Comments TESTOSTERONE, FREE & TOTAL Routine 08/27/2019 9:34 AM CDT PSA, TOTAL AND FREE Routine 08/27/2019 9 :34 AM CDT documented in this encounter Results * PSA, TOTAL AND FREE (08/27/2019 9:34 AM CDT) PSA TOTAL 1.0 < OR = 4.0 ng/mL [facility] PSA Free 0.3 ng/mL [facility] PSA % Free 30 >25 % (calc) [facility] Comment: PSA(ng/mL) ?Free PSA(%) ? Estimated(x) Probability ? of Cancer(as%) 0-2.5 ?(*) ? Approx. 1 2.6-4.0(1) ? 0-27(2) ? 24(3) 4.1-10(4) ?0-10 ?56 ? 11-15 ? 28 ? 16-20 ? 20 ? 21-25 ? 16 ? >or =26 ? 8 >10(+) ? N/A ?>50 References:(1)Sury:Urology 60: 469-474 (2002) ? (2)Catalona et al.:J.Urol 168: 922-925 (2001) ?Free PSA(%) ?? Sensitivity(%) ??Specificity(%) ?< or = 25 ?85 ?19 ?< or = 30 ?93 ? 9 ? (3)Cheikh et al.:LACEY 277: 6410-5553 (1996) ? (4)Cheikh et al.:LACEY 279: 7133-7535 (1997) (x)These estimates vary with age, ethnicity, family ?? history and FELIPA results. (*)The diagnostic usefulness of % Free PSA has not been ?? established in patients with total PSA below 2.6 ng/mL (+)In men with PSA above 10 ng/mL, prostate cancer risk is ?? determined by total PSA alone. The Total PSA value from this assay system is standardized against the equimolar PSA standard. The test result will be approximately 20% higher when compared to the WHO-standardized Total PSA (Siemens assay). Comparison of serial PSA results should be interpreted with this fact in mind. PSA was performed using the Alison Benedicta Immunoassay method. Values obtained from different assay methods cannot be used interchangeably. PSA levels, regardless of value, should not be interpreted as absolute evidence of the presence or absence of disease. 08/27/2019 9:34 AM CDT 08/27/2019 9:36 AM CDT Narrative [facility] - 08/30/2019 7:37 PM CDT FASTING:NO FASTING: NO Resulting Agency Comment Performing Organization Information: ?Site ID: [id number] ?Name: [facility] ?Address: [address] [address] ?Director: Raj Umana D.O., MPH us [facility] Final Result [facility] * TESTOSTERONE, FREE & TOTAL (08/27/2019 9:34 AM CDT) TESTOSTERONE TOTAL 691 250 - 1,100 ng/dL [facility] Comment: For additional information, please refer to http://education.Cloopen/faq/Total TestosteroneLCMSMS ?? (This link is being provided for informational/e ducational purposes only.) This test was developed and its analytical performance characteristics have been determined by [email or web address]. It has not been cleared or approved by the FDA. This assay has been validated pursuant to the CLIA regulations and is used for clinical purposes. TESTOSTERONE FREE 39.4 35.0 - 155.0 pg/mL [facility] Comment: This test was developed and its analytical performance characteristics have been determined by [facility]. It has not been cleared or approved by the FDA. This assay has been validated pursuant to the CLIA regulations and is used for clinical purposes. 08/27/2019 9:34 AM CDT 08/27/2019 9:36 AM CDT Narrative [facility] - 08/30/2019 7:37 PM CDT FASTING:NO FASTING: NO Resulting Agency Comment Performing Organization Information: ?Site ID: [id number] ?Name: [facility] ?Address: [address] [place] [address] ?Director: Lamont Sinclair M.D., Ph.D [facility] Final Result Performing Organization Address City/[facility]/ZIP Co de Phone Number [facility] [address] [place] [address], documented in this encounter Visit Diagnoses Not on filedocumented in this encounter Care Teams Budget Analyst Relationship Specialty Start Date End Date Amilcar Osorio MD [address] [place] [address] PCP - General 05/01/17 09/04/19 documented as of this encounter
--- OUTSIDE RECORDS SUMMARY | 2024-10-30 06:53 | XMS_ITS | Encounter Summary ---
Author Organization [facility] Address [address] [place] [address]. [place] [address] [place] [address] Care Team Providers Care Manager Trade Marketing Name Role Phone Amilcar Osorio MD Primary Care Provider [phone] Monica Tellez REGULATORY COMPLIANCE SPECIALIST Primary Care Provider [phone] Encounter Details Date Type Department Care Team (Late st Contact Info) Description 04/16/2018 Hosp Visit [facility] Outpatient Therapy [address] [place], [place] [address] Grecia Hess, PT [place], [place] [address] Social History Tobacco Use Types Packs/Day Years [...] filedocumented in this encounter Care Teams Manager Trade Marketing Relationship Specialty Start Date End Date Amilcar Osorio MD [address] [address] PCP - General 05/01/17 09/04/19 Monica Tellez, REGULATORY COMPLIANCE SPECIALIST [address] [address] PCP - General NURSE PRACTITIONER 09/05/19 documented as of this encounter
--- OUTSIDE RECORDS SUMMARY | 2024-10-30 06:53 | XMS_ITS | Encounter Summary ---
Author Organization [facility] Address [address] [place] [address]. [place], [place] [address] [place] [address] Care Team Providers Care Regulator Pin Inserter Name Role Phone Amilcar Osorio MD Primary Care Provider [phone] Reason for Referral * Imaging (Routine) - Closed Specialty Diagnoses / Procedures Referred By Florentino lowe Referred To Contact Diagnoses Cyst of testis Procedures US TESTICULAR Gina Fleming APNP Phone: tel: fax: Referral ID Status Reason Start Date Expiration Date Visits Re quested Visits Authorized [id number] Closed 06/22/2018 07/22/2019 1 1 Reason for Visit * Imaging (Routine) - Closed Specialty Diagnoses / Procedures Referred By Florentino lowe Referred To Contact Diagnoses Cyst of testis Procedures US TESTICULAR Gina Fleming APNP Phone: tel: fax: Referral ID Status Reason Start Date Expiration Date Visits Re quested Visits Authorized [id number] Closed 06/22/2018 07/22/2019 1 1 Encounter Details Date Type Department Care Team (Latest Contact Info) Description 07/16/2018 8:53 AM CDT - 07/16/2018 11:59 PM CDT Hospital Encounter [facility] Ultrasound [address] [address] Gina Fleming APNP [address] [place] [address] Discharge Disposition: Home or Self Care (Routine Discharge) Social History Tobacco Use Types Packs/Day Years Used Date Smoking Tobacco: Never Assessed Sex and Gender Information Value Date Recorded Sex Assigned at Not on file Legal Sex Male 11:29 PM CDT Gender Identity Not on file Sexual Orientation Not on file documented as of this encounter Medications at Time of Discharge nicotine 14 MG/24HR Place 1 patch onto the skin. 11/06/2017 07/16/2019 Umeclidinium [place] (INCRUSE ELLIPTA) 62.5 MCG/INH AEROSOL POWDER, BREATH ACTIVATED 07/16/2018 07/16/2019 documented as of this encounter Plan of Treatment Not on file documented as of this encounter Procedures Procedure Name Priority Date/Time Associated Diagnosis Comments US TESTICULAR Routine 07/16/2018 9:43 AM CDT Cyst of testis documented in this encounter Results * US TESTICULAR (07/16/2018 9:43 AM CDT) Anatomical Region Laterality Modality Pelvis Ultrasound 07/16/2018 10:0 3 AM CDT Impressions 07/16/2018 10:17 AM CDT IMPRESSION: 1. Bilateral testicular and epididymal cysts as described. No solid intrascrotal mass identified. 2. Right varicocele. Narrative 07/16/2018 10:17 AM CDT Examination: Scrotal ultrasound. Exam time: 0904 hours. Clinical history: Follow-up of cysts. Comparison: 01/16/2017, 11/10/2017. Technique: Grayscale and color Doppler images including spectral analysis. Findings: The testicles remain normal and symmetric in size with symmetric appearing color flow and normal appearing spectra on Doppler. 3 mm in greatest dimension simple cyst in the lower pole of the right testicle is visible in retrospect on 11/10/2017 (image 28) and stable. The right testicle is otherwise unremarkable. Septated but otherwise simple appearing cyst in the lower pole of the left testicle measures approximately 10 x 10 x 9 mm, stable since 01/23/2018. The adjacent unilocular simple cyst measures 6 mm in greatest dimension, stable to minimally enlarged since 01/23/2018. The left testicle is otherwise unremarkable. Multiple bilateral simple epididymal cysts are again demonstrated. The largest on the right measures approximately 8 mm in greatest dimension. The largest on the left measures approximately 12 mm in greatest dimension. No solid intrascrotal mass is identified. A physiologic volume of simple appearing fluid is present in either hemiscrotum. There is a right varicocele. Procedure Note Saturnino Dillon MD - 07/16/2018 Examination: Scrotal ultrasound. Exam time: 0904 hours. Clinical history: Follow-up of cysts. Comparison: 01/16/2017, 11/10/2017. Technique: Grayscale and color Doppler images including spectralanalysis. Findings: The testicles remain normal and symmetric in size withsymmetric appearing color flow and normal appearing spectra on Doppler. 3 mm in greatest dimension simple cyst in the lower pole of the right testicleis visible in retrospect on 11/10/2017 (image 28) and stable. The right testicle is otherwise unremarkable. Septated but otherwise simpleappearing cyst in the lower pole of the left testicle measures approximately 10 x10 x 9 mm, stable since 01/23/2018. The adjacent unilocular simple cyst measures 6 mm in greatest dimension, stable to minimally enlarged since 01/23/2018. The left testicle is otherwise unremarkable. Multiplebilateral simple epididymal cysts are again demonstrated. The largest on the right measures approximately 8 mm in greatest dimension. The largest on theleft measures approximately 12 mm in greatest dimension. No solidintrascrotal mass is identified. A physiologic volume of simple appearing fluid is present in either hemiscrotum. There is a right varicocele. IMPRESSION: 1. Bilateral testicular and epididymal cysts as described. No solid intrascrotal mass identified. 2. Right varicocele. us Gina CORTES ULTRASOUND Final Result documented in this encounter Visit Diagnoses Diagnosis Cyst of testis documented in this encounter Care Teams Regulator Pin Inserter Relationship Specialty Start Date End Date Amilcar Osorio MD [address] [address] PCP - General 05/01/17 09/04/19 documented as of this encounter
--- OUTSIDE RECORDS SUMMARY | 2024-10-30 06:53 | XMS_ITS | Encounter Summary ---
Author Organization [facility] Address [address] [place] [address]. [place], [place] [address] [place] [address] Care Team Providers Care Drawer Upfitter Name Role Phone Amilcar Osorio MD Primary Care Provider [phone] Encounter Details Date Type Department Care Team (Latest Contact Info) Description 07/25/2018 Abstract [facility] , Jerry Dempsey, Social History Tobacco Use Types Packs/Day Years Used Date Smoking Tobacco: Never Assessed Sex and Gender Information Value Date Recorded Sex Assigned at Not on file Legal Sex Male 11:29 PM CDT Gender Identity Not on file Sexual Orientation Not on file documented as of this encounter Progress Notes * SEBASTIAN Samuel - 07/25/2018 3:53 PM CDT Message Recorded as Task Date: 07/25/2018 08:16 AM, Created By: Shari Armijo Task Name: Results Inquiry Assigned To: [facility] - Urology [place] Nurse Team Regarding Patient: Josafat Calvo, Status: Active Comment: Shari Armijo - 25 Jul 2018 8:16 AM TASK CREATED Patient calling to get his CT scan results from 07/24/18. The patient had it done at [facility]. Patient call back number [phone]. Raysa Mahmood 25 Jul 2018 1:49 PM TASK EDITED Spoke to Floridalma at [facility] who will be faxing results. Raysa Mahmood 25 Jul 2018 2:29 PM TASK EDITED Results in scan docs, please advise. Gina Fleming 25 Jul 2018 2:59 PM TASK EDITED Tell him the CT was normal Gina Fleming - 25 Jul 2018 3:00 PM TASK EDITED Raysa Mahmood - 25 Jul 2018 3:52 PM TASK EDITED Patient notified Signatures Electronically signed by : Raysa Mahmood MA; Jul 25 2018 3:53PM SANITARY CHEMIST (Author) documented in this encounter Plan of Treatment Not on file documented as of this encounter Visit Diagnoses Not on filedocumented in this encounter Care Teams Drawer Upfitter Relationship Specialty Start Date End Date Amilcar Osorio MD [address] [place] [address] PCP - General 05/01/17 09/04/19 documented as of this encounter
--- OUTSIDE RECORDS SUMMARY | 2024-10-30 06:53 | XMS_ITS | Encounter Summary ---
Author Organization [facility] Address [address] [place] [address]. [place], [place] [address] [place] [address] Care Team Providers Care Nursing Project Coordinator Name Role Phone Amilcar Osorio MD Primary Care Provider [phone] Reason for Visit * Reason Comments Follow Up * Consultation/Treatment (Routine) - Closed Specialty Diagnoses / Procedures Referred By Florentino lowe Referred To Contact NURSE PRACTITIONER / UROLOGY Diagnoses cyst of testis 1 yr f/u Procedures FOLLOW UP Monica Tellez NP Phone: tel: fax: Gina Fleming APNP [address] [facility] [address] [facility] [address] [place] [address] Phone: tel: fax: Referral ID Status Reason Start Date Expiration Date Visits Re quested Visits Authorized [id number] Closed 07/16/2019 07/16/2020 100 100 Encounter Details Date Type Department Care Team (Late st Contact Info) Description 07/16/2019 11:20 AM CDT Office Visit [facility] Multispecialty Care - [facility] [address] [facility], [address] [place] [address] Gina Fleming APNP [address] [facility] [address] [facility] [address] [place] [address] Follow Up Social History Tobacco Use Types Packs/Day Years Used Date Smoking Tobacco: Never Assessed Sex and Gender Information Value Date Recorded Sex Assigned at Not on file Legal Sex Male 11:29 PM CDT Gender Identity Not on file Sexual Orientation Not on file documented as of this encounter Last Filed Vital Signs Vital Sign Reading Time Taken Comments Blood Pressure 124/88 07/16/2019 10:38 AM CDT Pulse 71 07/16/2019 10:38 AM CDT Temperature 36.6 ??C (97.9 ??F) 07/16/2019 10:38 AM C DT Respiratory Rate - - Oxygen Saturation - - Inhaled Oxygen Concentration - - Weight 110.7 kg (244 lb) 07/16/2019 10:38 AM CDT Height 175.3 cm (5' 9 ) 07/16/2019 10:38 AM CDT Body Mass Index 36.03 07/16/2019 10:38 AM CDT documented in this encounter Progress Notes * SEBASTIAN Samuel - 07/16/2019 11:20 AM CDTAddended by: GINA FLEMING on: 07/16/2019 11:23 AM Modules accepted: Orders * Raysa Ho MA - 07/16/2019 11:20 AM CDTAddended by: RAYSA HO on: 07/19/2019 08:46 AM Modules accepted: Orders * SEBASTIAN Samuel - 07/16/2019 11:20 AM CDT Images from the original note were not included. Urology Office Note Reason for Visit: Follow Up History of Present Illness: HPI 58-year-old male previously noted to have a complex left testicular cyst and erectile dysfunction follow-up. Last testicular ultrasound was 1 year ago. Bilateral testicular cysts noted without any intrascrotal mass. He was also noted to have a right varicocele for which he did undergo CT scan. He done at outside facility. This was noted to be normal. Today he tells me that his urinary frequency very day. Sometimes hours to 4 hours. Is not having urgency or associated incontinence. At times he experiences hesitancy and straining to initiate a stream. Feels a fair stream strength. Does not feel empty after each void. Nocturia or dysuria. Has not required treatment for UTIs. Tells me he was never able to get Viagra filled through his insurance. ROS: Review of Systems Constitutional: Negative for chills, fever, malaise/fatigue and weight loss. Respiratory: Negative for cough and shortness of breath. Cardiovascular: Negative for chest pain and palpitations. Gastrointestinal: Negative for abdominal pain, nausea and vomiting. Genitourinary: Negative for dysuria, flank pain, frequency, hematuria and urgency. Neurological: Negative for dizziness. Psychiatric/Behavioral: The patient is not nervous/anxious. Medications: Current Outpatient Medications: ??? albuterol (2.5 MG/3ML) 0.083% nebulizer solution, , Disp: , Rfl: 0 ??? albuterol sulfate HFA 108 (90 Base) MCG/ACT inhaler, INL 1 TO 2 PFS PO Q 6 H PRN, Disp: , Rfl: 0 ??? carvedilol 25 MG tablet, Take 25 mg by mouth 2 (two) times daily., Disp: , Rfl: 0 ??? hydrOXYzine 50 MG tablet, Take 50 mg by mouth 3 (three) times daily as needed for Itching., Disp: , Rfl: ??? latanoprost 0.005 % ophthalmic solution, , Disp: , Rfl: ??? lisinopril 10 MG tablet, , Disp: , Rfl: ??? omeprazole 40 MG capsule, Take 40 mg by mouth daily., Disp: , Rfl: 5 ??? Pseudoephedrine-guaiFENesin (MUCINEX D OR), , Disp: , Rfl: ??? sildenafil 20 MG tablet, Take 1 tablet (20 mg total) by mouth as needed. take 2.5 pills (50mg) one hour prior to intercourse, Disp: 30 tablet, Rfl: 1 ??? spironolactone 50 MG tablet, , Disp: , Rfl: ??? tamsulosin 0.4 MG Cap, Take 1 capsule (0.4 mg total) by mouth daily., Disp: 30 capsule, Rfl: 1 ??? Umeclidinium [place] (INCRUSE ELLIPTA IN), , Disp: , Rfl: Allergies: Allergies Allergen Reactions ??? Penicillins Swelling, Unknown and Anaphylaxis ??? Lisinopril Unknown Medical Hx: No past medical history on file. Surgical Hx: No past surgical history on file. Social Hx: Social History Socioeconomic History ??? Marital status: [...] on file Tobacco Use ??? Smoking status: Not on file Substance and Sexual Activity ??? Alcohol use: Not on file ??? Drug use: Not on file ??? Sexual activity: Not on file Lifestyle ??? Physical activity: Days per week: Not on file Minutes per session: Not on file ??? Stress: Not on file Relationships ??? Social connections: Talks on phone: Not on file Gets together: Not on file Attends nondenominational service: Not on file Active member of [...] ??? Not on file Social History Narrative ??? Not on file Family Hx: No family history on file. Physical Exam: Physical Exam Constitutional: He is oriented to person, place, and time and well-developed, well-nourished, and in no distress. No distress. HENT: Head: Normocephalic and atraumatic. Neck: Neck supple. Neurological: He is alert and oriented to person, place, and time. Gait normal. Skin: He is not diaphoretic. Psychiatric: Mood, memory, affect and judgment normal. Nursing note and vitals reviewed. Vitals: Filed Vitals: 07/16/19 1038 BP: 124/88 Pulse: 71 Temp: 97.9 ??F (36.6 ??C) TempSrc: Temporal Weight: 110.7 kg (244 lb) Height: 5' 9 (1.753 m) Recent Labs: No results found for: WBC, HGB, PLT GLUCOSE (no units) Date Value 07/16/2018 Negative No results found for this or any previous visit. Lab Results Component Value Date PSA 0.62 02/05/2018 PSA 0.62 02/05/2018 Recent Image: N/a Procedure: N/a Diagnoses/Impression: 1. Lower urinary tract symptoms (LUTS) tamsulosin 0.4 MG Cap PSA, TOTAL AND FREE 2. Erectile dysfunction, unspecified erectile dysfunction type sildenafil 20 MG tablet TESTOSTERONE, FREE & TOTAL 3. Testicular cyst Recommendations and Plan: 1. Lower urinary tract symptoms (LUTS) - tamsulosin 0.4 MG Cap; Take 1 capsule (0.4 mg total) by mouth daily. Dispense: 30 capsule; Refill: 1 - PSA, TOTAL AND FREE; Future 2. Erectile dysfunction, unspecified erectile dysfunction type - sildenafil 20 MG tablet; Take 1 tablet (20 mg total) by mouth as needed. take 2.5 pills (50mg) one hour prior to intercourse Dispense: 30 tablet; Refill: 1 - TESTOSTERONE, FREE & TOTAL; Future 3. Testicular cyst Due to his voiding symptoms we discussed initiating Flomax. We discussed proper use and side effects. He voices understanding. I will send in prescription of sildenafil to [facility] pharmacy. We have discussed appropriate use and potential side effects of this medication as well. He is aware he is to not take Flomax and Viagra at the same time. He is to separate by at Least 4 hours. I will obtain his yearly PSA level. He has asked to check his testosterone level as well. F/U in 4 weeks to discuss response to medications and labs results. I will complete his yearly FELIPA at that time. SEBASTIAN SAMUEL 07/16/2019 documented in this encounter Plan of Treatment Not on file documented as of this encounter Procedures Procedure Name Priority Date/Time Associated Diagnosis Comments URINALYSIS AUTO DIP Routine 07/16/2019 Lower urinary tract symptoms (LUTS) documented in this encounter Results * URINALYSIS AUTO DIP (07/16/2019) COLOR (U) YELLOW [facility] [address] (3), [place] TRANSPARENCY CLEAR [facility] [address] (3), [place] GLUCOSE (U) NEGATIVE NEGATIVE MG/DL [facility] [address] (3), [place] BILIRUBIN (U) NEGATIVE NEGATIVE [facility] [address] (3), [place] KETONES MG/DL (U) NEGATIVE NEGATIVE MG/DL [facility] [address] (3), [place] SPECIFIC GRAVITY (U) 1.010 1.001 - 1.[address] [facility] (3), [place] BLOOD (U) NEGATIVE NEGATIVE [facility] [address] (3), [place] U PH 7.0 5.0 - 9.[address] [facility] (3), [place] PROTEIN (U) NEGATIVE NEGATIVE mg/dL [facility] [address] (3), [place] UROBILINOGEN 0.2 0.2 - 1.0 EU/dL = mg/dL [facility] [address] (3), [place] NITRITES NEGATIVE NEGATIVE MG/DL [facility] [address] (3), [place] LEUKOCYTES (U) NEGATIVE NEGATIVE [facility] [address] (3), [place] URINE SPECIMEN OBTAINED BY CLEAN CATCH PROCEDURE / Unknown 07/16/2019 Gina CORTES URINE ORDERABLES Final Result [facility] (3), [facility] [address] [place] [address], [place] [phone] documented in this encounter Visit Diagnoses Diagnosis Lower urinary tract symptoms (LUTS)- Primary Other symptoms involving urinary system Erectile dysfunction, unspecified erectile dysfunction type Testicular cyst Other specified disorder of male genital organs documented in this encounter Care Teams Nursing Project Coordinator Relationship Specialty Start Date End Date Amilcar Osorio MD [address] [facility], [address] [address] PCP - General 05/01/17 09/04/19 documented as of this encounter
--- OUTSIDE RECORDS SUMMARY | 2024-10-30 06:53 | XMS_ITS | Encounter Summary ---
Author Organization [facility] Address [address] [place] [address]. [place], [place] [address] [place] [address] Care Team Providers Care Wood Products Manufacturer Name Role Phone Amilcar Osorio MD Primary Care Provider [phone] Monica Tellez HOSPITAL SOCIAL WORKER Primary Care Provider [phone] Encounter Details Date Type Department Care Team (Late st Contact Info) Description 04/09/2018 Hosp Visit [facility] Outpatient Therapy [place], [place] [address] Grecia Hess, PT [place], [place] [address] Social History Tobacco Use Types Packs/Day Years [...] on filedocumented in this encounter Care Teams Wood Products Manufacturer Relationship Specialty Start Date End Date Amilcar Osorio MD [address] [address] PCP - General 05/01/17 09/04/19 Monica Tellez, HOSPITAL SOCIAL WORKER [address] [address] PCP - General NURSE PRACTITIONER 09/05/19 documented as of this encounter
--- OUTSIDE RECORDS SUMMARY | 2024-10-30 06:53 | XMS_ITS | Encounter Summary ---
Author Organization [facility] Address [address] [place] [address]. [place], [place] [address] [place] [address] Care Team Providers Care Intelligence Operations Specialist Name Role Phone Monica Tellez PAPER FOLDING MACHINE OPERATOR Primary Care Provider [phone] Encounter Details Date Type Department Care Team (Latest Contact Info) Description 09/29/2020 Scan HEALTH INFO [facility] Scanned, Documents Social [...] on filedocumented in this encounter Care Teams Intelligence Operations Specialist Relationship Specialty Start Date End Date Monica Tellez, PAPER FOLDING MACHINE OPERATOR PCP - General NURSE PRACTITIONER 09/05/19 documented as of this encounter
--- OUTSIDE RECORDS SUMMARY | 2024-10-30 06:53 | XMS_ITS | Encounter Summary ---
Author Organization [facility] Address [address] [place] [address]. [place], [place] [address] [place] [address] Care Team Providers Care Patient Support Specialist Name Role Phone Monica Tellez NP Primary Care Provider [phone] Reason for Visit * Reason Onset Date Comments Reschedule 07/28/2020 Encounter Details Date Type Department Care Team (Late st Contact Info) Description 07/28/2020 Telephone [facility] Multispecialty Care - [facility] [address] [facility] [place] [address] Gina Fleming APNP [address] [place] [address] Reschedule Social History Tobacco Use Types Packs/Day Years Used Date Smoking Tobacco: Never Assessed Sex and Gender Information Value Date Recorded Sex Assigned at Not on file Legal Sex Male 11:29 PM CDT Gender Identity Not on file Sexual Orientation Not on file documented as of this encounter Progress Notes * Argelia Bailey MA - 07/29/2020 10:43 AM CDT Pt says he doesn't want a VV it is his time for a prostate check and he is keeping the appt on Monday. * Pari Vazquez MA - 07/28/2020 11:31 AM CDT R/S w/ KG for 08/03 due to KG ooo documented in this encounter Plan of Treatment Not on file documented as of this encounter Visit Diagnoses Not on filedocumented in this encounter Care Teams Patient Support Specialist Relationship Specialty Start Date End Date Monica Tellez NP PCP - General NURSE PRACTITIONER 09/05/19 documented as of this encounter
--- OUTSIDE RECORDS SUMMARY | 2024-10-30 06:53 | XMS_ITS | Encounter Summary ---
Author Organization [facility] Address [address] [place] [address]. [place], [place] [address] [place] [address] Care Team Providers Care Flatbed Driver Name Role Phone Amilcar Osorio MD Primary Care Provider [phone] Encounter Details Date Type Department Care Team (Latest Contact Info) Description 07/16/2018 Abstract [facility] Gina Fleming APNP [address] [address] Social History Tobacco Use Types Packs/Day Years Used Date Smoking Tobacco: Never Assessed Sex and Gender Information Value Date Recorded Sex Assigned at Not on file Legal Sex Male 11:29 PM CDT Gender Identity Not on file Sexual Orientation Not on file documented as of this encounter Last Filed Vital Signs Vital Sign Reading Time Taken Comments Blood Pressure 150/80 07/16/2018 10:16 AM CDT Pulse 62 07/16/2018 10:16 AM CDT Temperature - - Respiratory Rate - - Oxygen Saturation - - Inhaled Oxygen Concentration - - Weight 111.6 kg (246 lb) 07/16/2018 10:16 AM CDT Height 175.3 cm (5' 9 ) 07/16/2018 10:16 AM CDT Body Mass Index 36.33 07/16/2018 10:16 AM CDT documented in this encounter Progress Notes * SEBASTIAN Samuel - 07/16/2018 11:20 AM CDT Chief Complaint 6 month f/u testicular cyst History of Present Illness HPI: 57-year-old male being followed for previously noted complex left intratesticular cyst. Presents with previsit scrotal ultrasound. He tells me is done well over the last 5-6 months without any change in his voiding pattern. Denies any testicular pain. Continues to have issues with erectile dysfunction in which she has been on sildenafil. Denies any frequency urgency with urination. No obstructive voiding symptoms. No episodes of gross hematuria or dysuria. No recent fevers, chills, nausea,and/or vomiting. Review of Systems Constitutional: no fever, no chills and no fatigue. Cardiovascular: no chest pain. Respiratory: no shortness of breath. Gastrointestinal: no abdominal pain, no nausea and no vomiting. Genitourinary: no dysuria, no urinary frequency, no urinary urgency, no urinary incontinence, no urinary hesitancy, no hematuria, no pelvic pain, no testicular pain, no stranguria and no weak stream. Active Problems 1. Benign prostatic hyperplasia (600.00) (N40.0) 2. Cyst of testis (608.89) (N44.2) 3. Elevated prostate specific antigen (PSA) (790.93) (R97.20) 4. Epididymal cyst (608.89) (N50.3) 5. Hip pain, left (719.45) (M25.552) 6. Knee pain, unspecified laterality 7. 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 Primary osteoarthritis of right knee (715.16) (M17.11) Past Medical History 1. History of Anxiety (300.00) (F41.9) 2. History of depression (V11.8) (Z86.59) 3. History of hypertension (V12.59) (Z86.79) 4. History of obesity (V12.29) (Z86.39) 5. History of Pulmonary Embolism (V12.55) 6. History of Suicide risk (300.9) 7. History of Thromboembolic Disease (V12.52) 8. History of Visual impairment (369.9) (H54.7) Surgical History 1. History of Hand Surgery 2. History of Pelvic Repair 3. History of Pulmonary Artery Endarterectomy Family History Problems 1. Family history of Alcoholism 2. Family history of Asthma (V17.5) 3. Family history of Brain Cancer (V16.8) 4. Family history of Cancer 5. Family history of Carcinoma Of The Lung (V16.1) 6. Family history of Colon Cancer (V16.0) 7. Family history of In The Family Father 8. Family history of In The Family Mother 9. Family history of Depression 10. Family history of Diabetes Mellitus (V18.0) 11. Family history of Family Health Status Siblings 2 Living 12. Family history of Glaucoma (V19.11) 13. Family history of Heart Disease (V17.49) 14. Family history of Hypertension (V17.49) 15. No pertinent family history : Mother 16. Family history of Prostate Cancer (V16.42) 17. Family history of Reported Family History Of Heart Disease 18. Family history of Reported Family History Of Mental Illness (Not Retardation) 19. Family history of Stroke Syndrome (V17.1) Social History ?? Cigarette smoker (305.1) (F17.210) ?? Living Independently Alone (V60.3) ?? Never Drank Alcohol ?? Never Used Drugs ?? Smoker (305.1) (F17.200) ?? Stopped Drinking Alcohol Current Meds 1. Carvedilol 25 MG Oral Tablet; TK 1 T PO BID; Therapy: [id number] to Recorded Rx By: BINDU ALMANZA; Dispense: 30 Days ; #:60; Refill: 0; MARK = N; Record; Last Updated By: Jayshree Galvez; 06/20/2017 9:24:38 AM 2. Incruse Ellipta 62.5 MCG/INH Inhalation Aerosol Powder Breath Activated; Therapy: [id number] to Recorded Dispense: 0 Days ; #: Sufficient X 7 Inhaler Pack; Refill: 0; MARK = N; Record; Last Updated By: Raysa Mahmood; 07/16/2018 10:16:48 AM 3. Latanoprost 0.005 % Ophthalmic Solution; INSTILL 1 DROP INTO BOTH EYES QHS; Therapy: [id number] to Recorded Rx By: CARLOS MEEKS; Dispense: 25 Days ; #:2; Refill: 0; MARK = N; Record; Last Updated By: Jayshree Galvez; 06/20/2017 9:24:38 AM 4. Ventolin HFA 108 (90 Base) MCG/ACT Inhalation Aerosol Solution; Therapy: 16Jul2018 to Recorded Dispense: 0 Days ; #: Sufficient X 8 GM Inhaler; Refill: 0; MARK = N; Record; Last Updated By: Raysa Mahmood; 07/16/2018 10:16:48 AM Allergies 1. Lisinopril TABS Recorded By: Argelia Bailey; 03/27/2015 10:02:27 AM 2. Penicillins Recorded By: Shari Nichols; 06/11/2012 12:14:24 PM Vitals Recorded: 16Jul2018 10:16AM Temperature 98.4 F Heart Rate 62 Systolic 150 Diastolic 80 Not able to obtain height Patient stated height Height 5 ft 9 in Weight 246 lb BMI Calculated 36.33 BSA Calculated 2.26 Physical Exam Constitutional General appearance: No acute distress, well appearing and well nourished. Genitourinary Clear yellow urine.. Psychiatric Orientation to person, place and time: Normal. Mood and affect: Normal. Results/Data *Urine dip auto In Office 16Jul2018 10:18AM Gina Fleming Test Name Result Flag Reference Color Yellow Clarity Clear Glucose Negative Bilirubin Negative Ketones Negative Specific [place] 1.020 Blood Negative pH 5 5.0 - 7.0 Protein Negative Urobilinogen Negative Nitrites neg Leukocytes Negative Scrotal ultrasound 07/16/2018-the testicles remain normal and symmetrical in size with symmetric appearing color flow and normal-appearing spectra on Doppler. 3 mm in greatest dimension simple cyst inthe lower pole of the right testicle is visible in retrospect on 11/10/2017 and stable. The right testicle is otherwise unremarkable. Septated but otherwise simple appearing cyst in the lower pole of the left testicle measures approximately 10 x 10 x 9 mm, stable since 01/23/2018. The adjacent unilocular simple cyst measures 6 mm in greatest dimension, stable to minimally enlarged since 01/23/2018. Multiple bilateral simple epididymal cyst. Right varicocele. Scrotal ultrasound 01/23/2018-no right testicular mass or torsion. Right epididymal head cyst measures up to 7.5 mm, is relatively stable. Septated or bilobed cyst left testicle inferior pole. Measures up to 1.07 cm. This has decreased in size. Septation appears better. Less internal echoes. 2 left e pididymal head cyst noted. Largest cyst measures up to 1.3 cm. Small right hydrocele. Scrotal ultrasound November 10, 2017-complex left intratesticular cyst measuring 1.3 cm. Bilateral epididymal cyst. Assessment Bilateral simple testicular cysts Bilateral epididymal cysts Right varicocele Erectile dysfunction Plan Rx Sildenafil 20mg 2.[address] renal mass protocol ordered secondary to findings of right varicocele. Will call with results. He is to otherwise f/u in one year. Signatures Electronically signed by : Raysa Mahmood MA; Jul 16 2018 10:17AM HAND I BLOCKER (Co-author) Electronically signed by : Gina Fleming APN; Jul 16 2018 12:00PM HAND I BLOCKER (Author) documented in this encounter Plan of Treatment Not on file documented as of this encounter Procedures Procedure Name Priority Date/Time Associated Diagnosis Comments URINALYSIS AUTO DIP Routine 07/16/2018 1 0:18 AM CDT documented in this encounter Results * URINALYSIS AUTO DIP (07/16/2018 10:18 AM CDT) COLOR (U) Yellow [facility] T O EPIC CONVERSION TRANSPARENCY Clear [facility] P TO EPIC CONVERSION GLUCOSE Negative [facility] T O EPIC CONVERSION BILIRUBIN (U) Negative [facility] UP TO EPIC CONVERSION KETONE (U) Negative [facility] TO EPIC CONVERSION SPECIFIC GRAVITY (U) 1.020 [facility] TO EPIC CONVERSION BLOOD (U) Negative [facility] T O EPIC CONVERSION PH (U) 5 5.0 - 7.0 [facility] T O EPIC CONVERSION PROTEIN (ELP) (U) Negative [facility] TO EPIC CONVERSION UROBILINOGEN Negative [facility] P TO EPIC CONVERSION NITRITES neg [facility] T O EPIC CONVERSION LEUKOCYTES (U) Negative [facility] OUP TO EPIC CONVERSION 07/16/2018 10:1 8 AM CDT 07/16/2018 10:18 AM CDT Narrative [facility] TO EPIC CONVERSION - 07/16/2018 10:18 AM CDT Result Communication: No patient communication needed at this time Gina CORTES URINE ORDERABLES Final Result [facility] TO EPIC CONVERSION documented in this encounter Visit Diagnoses Not on filedocumented in this encounter Care Teams Flatbed Driver Relationship Specialty Start Date End Date Amilcar Osorio MD [address] [place] [address] PCP - General 05/01/17 09/04/19 documented as of this encounter
--- OUTSIDE RECORDS SUMMARY | 2024-10-30 06:53 | XMS_ITS | Encounter Summary ---
Author Organization [facility] Address [facility] [facility] [place] [address] [place] [address] Care Team Providers Care Medical Director/Head Team Physician Name Role Phone Amilcar Osorio MD Primary Care Provider [phone] Monica Tellez NP Primary Care Provider [phone] Encounter Details Date Type Department Care Team (Late st Contact Info) Description 07/03/2018 Abstract [facility] Multispecialty Care - [facility] [address] [place] [address] Gina Fleming APNP [address] [facility] [address] [place] [address] Social History Tobacco Use Types Packs/Day Years [...] on filedocumented in this encounter Care Teams Medical Director/Head Team Physician Relationship Specialty Start Date End Date Amilcar Osorio MD [address] [facility] [place] [address] PCP - General 05/01/17 09/04/19 Monica Tellez NP [address] [place] [address] PCP - General NURSE PRACTITIONER 09/05/19 documented as of this encounter
--- OUTSIDE RECORDS SUMMARY | 2024-10-30 06:53 | XMS_ITS | Encounter Summary ---
Author Organization [facility] Address [address] [place] [address]. [place], [place] [address] [place] [address] Care Team Providers Care Greenhouse Technician Name Role Phone Amilcar Osorio MD Primary Care Provider [phone] Encounter Details Date Type Department Care Team (Latest Contact Info) Description 07/24/2018 Abstract [facility] , Jerry Dempsey MD Social [...] on filedocumented in this encounter Care Teams Greenhouse Technician Relationship Specialty Start Date End Date Amilcar Osorio MD [address] [facility], [facility] [address] [place] [address] PCP - General 05/01/17 09/04/19 documented as of this encounter
--- OUTSIDE RECORDS SUMMARY | 2024-10-30 06:53 | XMS_ITS | Encounter Summary ---
Author Organization [facility] Address [address] [place] [address]. [address] Care Team Providers Care Lunchroom Operator Name Role Phone Amilcar Osorio MD Primary Care Provider [phone] Monica Tellez VP SECURITY Primary Care Provider [phone] Encounter Details Date Type Department Care Team (Late st Contact Info) Description 04/02/2018 Hosp Visit [facility] Outpatient Therapy [place], [place] [address] Grecia Hess, PT [place], [place] [address] Social History Tobacco Use Types Packs/Day Years [...] on filedocumented in this encounter Care Teams Lunchroom Operator Relationship Specialty Start Date End Date Amilcar Osorio MD [address] [address] PCP - General 05/01/17 09/04/19 Monica Tellez, VP SECURITY [address] [address] PCP - General NURSE PRACTITIONER 09/05/19 documented as of this encounter
--- OUTSIDE RECORDS SUMMARY | 2024-10-30 06:53 | XMS_ITS | Encounter Summary ---
Author Organization [facility] Address [address] [place] [address]. [place], [place] [address] [place] [address] Care Team Providers Care Classroom Paraprofessional Name Role Phone Kierstensaurabh Monica Alonso ROULETTE DEALER Primary Care Provider [phone] Reason for Visit * Reason Onset Date Comments Information 08/17/2020 Encounter Details Date Type Department Care Team (Late st Contact Info) Description 08/17/2020 Telephone [facility] Medical Group Multispecialty Care - [facility] [place] [address] [facility] [place] [address] Gina Fleming APNP [address] [place] [address] Information Social History Tobacco Use Types Packs/Day Years Used Date Smoking Tobacco: Never Assessed Sex and Gender Information Value Date Recorded Sex Assigned at Not on file Legal Sex Male 11:29 PM CDT Gender Identity Not on file Sexual Orientation Not on file documented as of this encounter Progress Notes * Yun Ramon RN - 08/21/2020 9:[address] Pollock. He requests to see Dr. Pitt in the future not the ROULETTE DEALER. He will get his paperwork in order and call us back to schedule. * Yun Ramon RN - 08/21/2020 8:59 AM CDT Patient returned phone call. I explained to him the problem with the provider being able to fill out the paperwork. He verbalized understanding of this and will contact his primary doctor Dr. Pollock. * Yun Ramon RN - 08/20/2020 1:27 PM CDT I was asked to call patient to explain why Urology department was unable to fill out his paperwork for him. No answer. * Pari Vazquez MA - 08/17/2020 12:55 PM CDT noted * SEBASTIAN Samuel - 08/17/2020 12:04 PM CDT Ok. It is not that I wouldn't fill out the paperwork. The problem was that the paperwork was askingquestions I could not answer. I would have been falsifying information for his transportation as itwas asking about mobility restrictions and other debilitations and based on our past encounters he has had no problems. * Pari Vazquez MA - 08/17/2020 11:48 AM CDT I spoke to patient and let him know that I faxed the form requesting transportation back to the [facility], because Gina said she was not the one to determine transportation. I advised him reaching out to him PCP, or other specialist. Patient said he was terminating his care and finding a new urologist because he has been coming here five fucking years and then he hung up. documented in this encounter Plan of Treatment Not on file documented as of this encounter Visit Diagnoses Not on filedocumented in this encounter Care Teams Classroom Paraprofessional Relationship Specialty Start Date End Date Monica Tellez NP PCP - General NURSE PRACTITIONER 09/05/19 documented as of this encounter
--- OUTSIDE RECORDS SUMMARY | 2024-10-30 06:53 | XMS_ITS | Encounter Summary ---
Author Organization [facility] Address [address] [place] [address]. [place], [place] [address] [place] [address] Care Team Providers Care Senior Oracle Soa Developer Name Role Phone Monica Tellez BUSINESS DIRECTOR Primary Care Provider [phone] Reason for Visit * Reason Comments Urinary Frequency * Consultation/Treatment (Routine) - Closed Specialty Diagnoses / Procedures Referred By Florentino lowe Referred To Contact NURSE PRACTITIONER / UROLOGY Diagnoses cyst of testis 1 yr f/u Procedures FOLLOW UP Monica Tellez, BUSINESS DIRECTOR Phone: tel: fax: Gina Fleming APNP [address] [facility] [address] [place] [address] Phone: tel: fax: Referral ID Status Reason Start Date Expiration Date Visits Re quested Visits Authorized [id number] Closed 07/16/2019 07/16/2020 100 100 Encounter Details Date Type Department Care Team (Latest Contact Info) Description 09/05/2019 11:20 AM TRIM INSTALLER Office Visit [facility] Multispecialty Care - [address], [address] [place] [address] Gina Fleming APNP [address] [facility] [address] [place] [address] Urinary Frequency Social History Tobacco Use Types Packs/Day Years Used Date Smoking Tobacco: Never Assessed Sex and Gender Information Value Date Recorded Sex Assigned at Not on file Legal Sex Male 11:29 PM CDT Gender Identity Not on file Sexual Orientation Not on file documented as of this encounter Last Filed Vital Signs Vital Sign Reading Time Taken Comments Blood Pressure 142/92 09/05/2019 11:03 AM TRIM INSTALLER Pulse 60 09/05/2019 11:03 AM TRIM INSTALLER Temperature 36.5 ??C (97.7 ??F) 09/05/2019 11:[address] Respiratory Rate - - Oxygen Saturation 97% 09/05/2019 11:03 AM TRIM INSTALLER Inhaled Oxygen Concentration - - Weight 108 kg (238 lb) 09/05/2019 11:03 AM TRIM INSTALLER Height 175.3 cm (5' 9 ) 09/05/2019 11:03 AM TRIM INSTALLER Body Mass Index 35.15 09/05/2019 11:03 AM TRIM INSTALLER documented in this encounter Progress Notes * SEBASTIAN Samuel - 09/05/2019 11:20 AM CST Images from the original note were not included. Urology Office Note Reason for Visit: No chief complaint on file. History of Present Illness: HPI 58-year-old male with a history of complex left testicular cyst, erectile dysfunction, and right varicole (Normal CT) reported urinary frequency and nocturia at his last visit in June. For this he was started on Flomax and returns today for continued assessment with previsit PSA. He also requested testosterone testing. He does tell me he has noted a positive change in his urination throughout the day. He is able to hold his urine for longer periods of time. He does not have urgency or associated incontinence. He continues to wake 2-3 times at night to void but only limits fluids 1.5 to 2hours prior to bedtime. He has not had any gross hematuria or dysuria. Testosterone was normal at 691 with free of 39.4. PSA 1.0 ROS: Review of Systems Constitutional: Negative for [...] needed for Itching., Disp: , Rfl: ??? lamoTRIgine 25 MG tablet, TK 2 TS PO BID, Disp: , Rfl: 1 ??? latanoprost 0.005 % ophthalmic solution, , [...] tablets (50 mg) one hour prior to intercourse., Disp: 30 tablet, Rfl: 1 ??? spironolactone 50 MG tablet, , Disp: , Rfl: ??? tamsulosin 0.4 MG Cap, Take 1 capsule (0.4 mg total) by mouth daily., Disp: 30 capsule, Rfl: 1 ??? triamcinolone 0.1 % cream, JACEK TO ARMS BID PRF ECZEMA, Disp: , Rfl: 0 ??? Umeclidinium [place] (INCRUSE ELLIPTA [place]), , Disp: , Rfl: [...] file Gets together: Not on file Attends gnosticism service: Not on file Active member of [...] Head: Normocephalic and atraumatic. Neck: Neck supple. Pulmonary/Chest: Effort normal. No respiratory distress. Genitourinary: Genitourinary Comments: Prostate felt to be approximately 30 cc in volume with an overall benign feeling and no definite nodule. Neurological: He is alert and oriented to person, place, and time. Gait normal. Skin: Skin is dry. He is not diaphoretic. No pallor. Psychiatric: Mood, memory, affect and judgment normal. Nursing note and vitals reviewed. Vitals: Filed Vitals: 09/05/19 1103 BP: (!) 142/92 Pulse: 60 Temp: 97.7 ??F (36.5 ??C) TempSrc: Temporal SpO2: 97% Weight: 108 kg (238 lb) Height: 5' 9 (1.753 m) Recent Labs: No results found for: WBC, HGB, PLT GLUCOSE (no units) Date Value 07/16/2018 Negative No results found for this or any previous visit. Lab Results Component Value Date PSA 0.62 02/05/2018 PSA 0.62 02/05/2018 Recent Image: N/a Procedure: N/a Diagnoses/Impression: 1. Nocturia URINALYSIS AUTO DIP 2. Urinary frequency URINALYSIS AUTO DIP Recommendations and Plan: 1. Nocturia - URINALYSIS AUTO DIP 2. Urinary frequency - URINALYSIS AUTO DIP Discussed limiting fluids at least 3 hours prior to bedtime. He will continue Flomax for now. Follow-up in 6 months or as needed for continued assessment. SEBASTIAN SAMUEL 09/05/2019 INSTALLER documented in this encounter Plan of Treatment Not on file documented as of this encounter Procedures Procedure Name Priority Date/Time Associated Diagnosis Comments URINALYSIS AUTO DIP Routine 09/05/2019 Nocturia Urinary frequency documented in this encounter Results * URINALYSIS AUTO DIP (09/05/2019) COLOR (U) YELLOW [facility] (3), [...] [facility] [address] (3), [facility] U PH 5.5 5.0 - 9.[address] (3), [facility] PROTEIN (U) NEGATIVE NEGATIVE mg/dL [facility] [address] (3), [facility] UROBILINOGEN 0.2 0.2 - 1.0 EU/dL = mg/dL [facility] [address] (3), [facility] NITRITES NEGATIVE NEGATIVE MG/DL [facility] [address] (3), [facility] LEUKOCYTES (U) NEGATIVE NEGATIVE [facility] [address] (3), [facility] URINE SPECIMEN OBTAINED BY CLEAN CATCH PROCEDURE / Unknown 09/05/2019 Gina CORTES URINE ORDERABLES Final Result [facility] [address] (3), [facility] [address] [place] [address], [place] [phone] documented in this encounter Visit Diagnoses Diagnosis Nocturia- Primary Urinary frequency documented in this encounter Care Teams Senior Oracle Soa Developer Relationship Specialty Start Date End Date Monica Tellez NP PCP - General NURSE PRACTITIONER 09/05/19 documented as of this encounter
--- OUTSIDE RECORDS SUMMARY | 2024-10-30 06:53 | XMS_ITS | Encounter Summary ---
Author Organization [facility] Address [address] [place] [address]. [place], [place] [address] [place] [address] Care Team Providers Care Machine Stone Polisher Apprentice Name Role Phone Amilcar Osorio MD Primary Care Provider [phone] Encounter Details Date Type Department Care Team (Latest Contact Info) Description 07/16/2018 Abstract [facility] Gina Fleming APNP [address] [place] [address] Social History Tobacco Use Types Packs/Day Years [...] Associated Diagnosis Comments US TESTICULAR Routine 07/16/2018 9:00 AM CDT documented in this encounter Results * US TESTICULAR (07/16/2018 9:00 AM CDT) Anatomical Region Laterality Modality Pelvis Ultrasound 07/16/2018 9:00 AM CDT 07/16/2018 9:00 AM CDT Narrative 07/16/2018 10:18 AM CDT Examination: Scrotal ultrasound. Exam time: [...] solid intrascrotal mass identified. 2. Right varicocele. Procedure Note , Jerry Conversion, - 09/11/2018 Examination: Scrotal ultrasound. Exam time: 0904 hours. [...] Result documented in this encounter Visit Diagnoses Not on filedocumented in this encounter Care Teams Machine Stone Polisher Apprentice Relationship Specialty Start Date End Date Amilcar Osorio MD [address] [place] [address] PCP - General 05/01/17 09/04/19 documented as of this encounter
--- OUTSIDE RECORDS SUMMARY | 2024-10-30 06:54 | XMS_ITS | Encounter Summary ---
Author Organization [facility] Address [address] [place] [address]. [place], [place] [address] [place] [address] Care Team Providers Care Mail Sorter And Delivery Name Role Phone Amilcar Osorio MD Primary Care Provider [phone] Encounter Details Date Type Department Care Team (Latest Contact Info) Description 11/15/2017 Abstract [facility] Social History Tobacco Use Types Packs/Day Years [...] on filedocumented in this encounter Care Teams Mail Sorter And Delivery Relationship Specialty Start Date End Date Amilcar Osorio MD [address] [facility], [facility] [address] [place] [id number] PCP - General 05/01/17 09/04/19 documented as of this encounter
--- OUTSIDE RECORDS SUMMARY | 2024-10-30 06:54 | XMS_ITS | Encounter Summary ---
Author Organization [facility] Address [address] [place] [address]. [place], [place] [address] [place] [address] Care Team Providers Care Group Segment Consultant Name Role Phone Amilcar Osorio MD Primary Care Provider Md Generic Conversion Primary Care Provider Unavailable Md Generic Conversion Primary Care Provider Unavailable Md Generic Conversion Primary Care Provider Unavailable Md Generic Conversion Primary Care Provider Unavailable Md Generic Conversion Primary Care Provider Unavailable Md Generic Conversion Primary Care Provider Unavailable Md Generic Conversion Primary Care Provider Unavailable Md Generic Conversion Primary Care Provider Unavailable Md Generic Conversion Primary Care Provider Unavailable Md Generic Conversion Primary Care Provider Unavailable Md Generic Conversion Primary Care Provider Unavailable , Generic Conversion Primary Care Provider Unavailable Md Generic Conversion Primary Care Provider Unavailable Zainab Flower MD Primary Care Provider [phone] Encounter Details Date Type Department Care Team (Late st Contact Info) Description 12/04/2012 Abstract [facility] Medical Group Multispecialty Care - [facility] [address] [facility] [address] [place] [address] Rusty Mcfarlane DO [facility] [address] [address] Social History Tobacco Use Types Packs/Day Years Used Date Smoking Tobacco: Never Assessed Sex and Gender Information Value Date Recorded Sex Assigned at Not on file Legal Sex Male 11:29 PM CDT Gender Identity Not on file Sexual Orientation Not on file documented as of this encounter Last Filed Vital Signs Vital Sign Reading Time Taken Comments Blood Pressure 150/100 12/04/2012 2:55 PM NUCLEAR SPECTROSCOPIST Pulse - - Temperature - - Respiratory Rate - - Oxygen Saturation - - Inhaled Oxygen Concentration - - Weight 117.5 kg (259 lb) 12/04/2012 2:55 PM NUCLEAR SPECTROSCOPIST Height 175.3 cm (5' 9 ) 12/04/2012 2:55 PM NUCLEAR SPECTROSCOPIST Body Mass Index 38.25 12/04/2012 2:55 PM NUCLEAR SPECTROSCOPIST documented in this encounter Progress Notes * Rusty Mcfarlane, DO - 12/04/2012 2:30 PM CST History of Present Illness 52 y/o right hand dominant BM here for R knee pain, he was bow legged as a child and his L leg straightened out but his R knee never did and he has played sports when he was younger. He was told a couple of years ago that he would need a total knee in a few years. He states that it feels like it will give out on him when he does steps, and he has to always move it to make it feel comfortable at night. The patient is being seen for a consultation regarding a knee problem. He sustained an injury to the right knee. 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 The injury resulted from twisting and a direct blow. Symptoms: pain. Exacerbating factors: bearing weight and walking. Relieving factors: rest. Associated symptoms:no lower extremity weakness, no lower extremity numbness and no injury to other areas. Current treatment includes has had steroid injections in past gave only 3-4 weeks of relief. The patient is not currently being treated for this problem. By report, there is good compliance with treatment, good tolerance of treatment and poor symptom control. Review of Systems Constitutional: malaise and fatigue. Head and Face: negative. Eyes: negative. ENT: negative. Cardiovascular: negative. Respiratory: shortness of breath and wheezing. Gastrointestinal: negative. Genitourinary: nocturia. Musculoskeletal: generalized muscle aches, joint swelling and joint stiffness, but as noted in HPI. Integumentary and Breasts: negative. Psychiatric: insomnia, anxiety and depression. Endocrine: negative. Hematologic and Lymphatic: negative. Active Problems 1. Joint Pain, Localized In The Knee Right 719.46 2. Localized Primary Osteoarthritis Of The Right Knee 715.16 3. Serology Prostate-specific Antigen (PSA) Elevated 790.93 Past Medical History 1. History of Anxiety 300.00 2. History of Depression 311 3. History of Hypertension 401.9 4. History of Obesity 278.00 5. History of Pulmonary Embolism V12.55 6. History of Suicide Risk 300.9 7. History of Thromboembolic Disease V12.52 8. 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 History of Hand Surgery 2. History of Pelvic Repair 3. History of Pulmonary Artery Endarterectomy Family History 1. Family history of Alcoholism 2. Family history of Asthma V17.5 3. Family history of Brain Cancer V16.8 4. Family history of Cancer 5. Family history of Carcinoma Of The Lung V16.1 6. Family history of Colon Cancer V16.0 7. Family history of In The Family Father 8. Family history of In The Family Mother 9. Family history of Depression 10. Family history of Diabetes Mellitus V18.0 11. Family history of Family Health Status Siblings 2 Living 12. Family history of Glaucoma V19.11 13. Family history of Heart Disease V17.49 14. Family history of Hypertension V17.49 15. Family history of Prostate Cancer V16.42 16. Family history of Reported Family History Of Heart Disease 17. Family history of Reported Family History Of Mental Illness (Not Retardation) 18. Family history of Stroke Syndrome V17.1 Social History ?? Current Every Day Smoker 305.1 ?? Living Independently Alone V60.3 ?? Never Drank Alcohol ?? Never Used Drugs ?? Stopped Drinking Alcohol ?? Tobacco Use 305.1 Current Meds 1. ALPRAZolam 0.5 MG Oral Tablet; TK 1 T PO TID; Therapy: 27Aug2012 to 2. AmLODIPine Besylate 10 MG Oral Tablet; TK ONE T PO D; Therapy: 17Qiq0932 to 3. ClonazePAM 0.5 MG Oral Tablet; TK 1 T PO TID; Therapy: 71Car3331 to 4. CloNIDine HCl 0.2 MG Oral Tablet; TK 1 T PO TID; Therapy: 48Hdg4517 to 5. Diovan 160 MG Oral Tablet; Therapy: (Recorded:58Dru0917) to 6. Divalproex Sodium 250 MG Oral Tablet Delayed Release; TK 1 T PO TID; Therapy: 48Efx5948 to 7. Hydrocodone-Acetaminophen 7.5-325 MG Oral Tablet; TK 1 T PO Q 6 H; Therapy: 01Mar2012 to 8. HydrOXYzine Pamoate 50 MG Oral Capsule; TK ONE C PO TID; Therapy: 17Nwr9113 to 9. Ibuprofen 600 MG Oral Tablet; TK 1 T PO PO TID PRN WITH FOOD; Therapy: 93Yph9720 to 10. Losartan Potassium 100 MG Oral Tablet; TK 1 T PO D; Therapy: 01Mar2012 to 11. Metoprolol Succinate ER 100 MG Oral Tablet Extended Release 24 Hour; TK ONE T PO D; Therapy: 47Lul3006 to 12. ProAir HFA 108 (90 Base) MCG/ACT Inhalation Aerosol Solution; INL 2 PUFFS PO Q 4 TO 6 H PRN FOR SOB OR WHEEZING; Therapy: 01Mar2012 to 13. Ranitidine HCl 150 MG Oral Tablet; TK 1 T PO BID; Therapy: 01Mar2012 to 14. Remeron 30 MG Oral Tablet; Therapy: (Recorded:30Run3733) to 15. RisperDAL TABS; Therapy: (Recorded:16Oaj0107) to 16. RisperiDONE 2 MG Oral Tablet; TK 1 T PO QAM AND 2 TS QPM; Therapy: 45Slr8362 to 17. Singulair 10 MG Oral Tablet; TK ONE T PO D; Therapy: 01Mar2012 to 18. TraZODone HCl 100 MG Oral Tablet; TK 1 T PO QHS; Therapy: 01Feb2012 to Allergies 1. Penicillins Vitals 15Ndt2284 02:55PM Systolic 150 Diastolic 100 BMI Calculated 38.36 BSA Calculated 2.3 Height 5 ft 9 in Weight 259 lb Pain Scale 5 Physical Exam Constitutional: alert, in no acute distress, well nourished, well developed, healthy appearing and normal voice and communication. Neurological:. The patient was oriented to person, place, and time. Mood and affect were appropriate. The sensory exam was normal to light touch and pinprick. Coordination was normal. Right Knee: Appearance: genu varum, but no dislocation, no ecchymosis, no effusion and no swelling. Tenderness: diffuse medial knee, but not over the medial joint line. ROM: Full. Motor: Normal. Special Tests: equivocal Anterior Drawer sign, but negative lateral Apley's Grind test, negative medial Apley's Grind test, negative medial Alex test, negative lateral Alex test, negative Posterior Drawer sign, no laxity on valgus stress and no laxity on varus stress. Patellofemoral Joint: Meniscal: Results/Data Views: AP and lateral views and a sunrise view of the right knee. Findings: no fracture. There are moderate degenerative changes. There is varus alignment that is moderate. Assessment 1. Localized Primary Osteoarthritis Of The Right Knee 715.16 2. Joint Pain, Localized In The Knee Right 719.46 a 52-year-old black male with right knee pain and a long history of a varus deformity as a child ofhis right knee. He offers a history of injuries to the right knee that required no formal treatmentand she sprained his knee and did have some swelling in the past. His pain is well localized to themedial aspect of his knee x-ray show [id number] changes in the medial tibiofemoral compartment particularly on the lateral radiograph. The patient has not done well with her long-lasting relief with steroid injections. He has nocturnal awakening and pain exacerbated with walking. He rated his pain 10 over 10 today relate the presenttime does not seem to be better with anything that he is doing on his own. His physical examinationwas suggestive of some laxity of the anterior cruciate ligament. An incompetent anterior cruciate ligament would be a contraindication to unicompartmental knee arthroplasty which is what the patient is actually wanting to have done to his knee at this point Plan I will order a MRI for the patient. We will review the results of the MRI. if he wants to proceed with unicompartmental knee arthroplasty and his MRI shows a intact anterior cruciate ligament and will offer him a unicompartmental knee arthroplasty. If his ACL has significant degenerative changes orshows evidence of an old tear then I would recommend a complete knee replacement. Patient had a history of a pulmonary embolism in 2006 he would be at risk for venous thromboembolic event should he undergo partial or complete knee replacement. Signatures Electronically signed by : Rusty Mcfarlane D.O.; Dec 04 2012 3:57PM (Author) EAR SPECTROSCOPIST documented in this encounter Plan of Treatment Not on file documented as of this encounter Visit Diagnoses Not on filedocumented in this encounter Care Teams Group Segment Consultant Relationship Specialty Start Date End Date Amilcar Osorio MD [address] [place] [address] PCP - General 05/01/17 09/04/19 Md, Generic Conversion, MD PCP - General 10/29/13 7 Md, Generic Conversion, MD PCP - General 09/09/1310/28 Md, Generic Conversion, MD PCP - General 05/20/1309/08 Md, Generic Conversion, MD PCP - General 03/28/13 Md, Generic Conversion, MD PCP - General 03/27/13 Md, Generic Conversion, MD PCP - General 03/19/13 Md, Generic Conversion, MD PCP - General 03/14/13 Md, Generic Conversion, MD PCP - General 03/01/13 Md, Generic Conversion, MD PCP - General 02/21/13 3 Md, Generic Conversion, MD PCP - General 01/21/13 Md, Generic Conversion, MD PCP - General 01/17/13 Md, Generic Conversion, MD PCP - General 12/14/12 Md, Generic Conversion, MD PCP - General 12/10/12 Zainab Flower MD [address] [place] [address] PCP - General 12/04/12 12/09/12 documented as of this encounter
--- OUTSIDE RECORDS SUMMARY | 2024-10-30 06:54 | XMS_ITS | Encounter Summary ---
Author Organization [facility] Address [address] [place] [address]. [place], [place] [address] [place] [address] Care Team Providers Care Medical Laboratory Scientist Name Role Phone Amilcar sOorio MD Primary Care Provider [phone] Jerry Rodriges MD Primary Care Provider Unavailable Encounter Details Date Type Department Care Team (Latest Contact Info) Description 01/29/2014 Abstract [facility] Medical Group Social History Tobacco Use Types Packs/Day Years Used Date Smoking Tobacco: Never Assessed Sex and Gender Information Value Date Recorded Sex Assigned at Not on file Legal Sex Male 11:29 PM CDT Gender Identity Not on file Sexual Orientation Not on file documented as of this encounter Progress Notes * Jerry Dempsey Md, MD - 01/29/2014 2:59 PM CDT Message Message: The pt. will be coming into the office to case picker his samples from [employer] for Viagra 50 MG( 2each) and Viagra 100MG (2 each). Viagra 100 MG LOT [id number] EXP: 02-27-18 ND: [id number] Viagra 50 MG LOT [id number] EXP: 02-27-18 ND: [phone] Signatures Electronically signed by : Argelia Bailey, ; Jan 29 2014 3:07PM [employer] (Author) documented in this encounter Plan of Treatment Not on file documented as of this encounter Visit Diagnoses Not on filedocumented in this encounter Care Teams Medical Laboratory Scientist Relationship Specialty Start Date End Date Amilcar Osorio MD [address] [place] [address] PCP - General 05/01/17 09/04/19 , Generic Conversion, PCP - General 10/29/13 7 documented as of this encounter
--- OUTSIDE RECORDS SUMMARY | 2024-10-30 06:54 | XMS_ITS | Encounter Summary ---
Author Organization [facility] Address [address] [place] [address]. [place], [place] [address] [place] [address] Care Team Providers Care Metal Cnc Operator Name Role Phone Amilcar Osorio MD Primary Care Provider [phone] Encounter Details Date Type Department Care Team (Latest Contact Info) Description 02/08/2018 Abstract [facility] Medical Group Social History Tobacco Use Types Packs/Day Years Used Date Smoking Tobacco: Never Assessed Sex and Gender Information Value Date Recorded Sex Assigned at Not on file Legal Sex Male 11:29 PM CDT Gender Identity Not on file Sexual Orientation Not on file documented as of this encounter Progress Notes * Jerry Dempsey Md, MD - 02/08/2018 3:57 PM CDT Message Recorded as Task Date: 02/07/2018 03:41 PM, Created By: Gina Fleming Task Name: Informational Assigned To: -Nurse Team Regarding Patient: Josafat Calvo, Status: Active Comment: Gina Fleming - 07 Feb 2018 3:41 PM TASK CREATED Let him know his PSA was normal Raysa Mahmood - 08 Feb 2018 3:57 PM TASK EDITED Patient notified. Signatures Electronically signed by : Raysa Mahmood MA; Feb 08 2018 3:58PM NET ARCHITECT (Author) documented in this encounter Plan of Treatment Not on file documented as of this encounter Visit Diagnoses Not on filedocumented in this encounter Care Teams Metal Cnc Operator Relationship Specialty Start Date End Date Amilcar Osorio MD [address] [place] [address] PCP - General 05/01/17 09/04/19 documented as of this encounter
--- OUTSIDE RECORDS SUMMARY | 2024-10-30 06:54 | XMS_ITS | Encounter Summary ---
Author Organization [facility] Address [address] [place] [address]. [place], [place] [address] [place] [address] Care Team Providers Care Sheep Clipper Name Role Phone Amilcar Osorio MD Primary Care Provider Encounter Details Date Type Department Care Team (Late st Contact Info) Description 11/16/2017 Transcribe Orders [facility] [address] [facility] [place] [address] Gina Fleming APNP [address] [facility] [address] [facility] [place] [id number] Social History Tobacco Use Types Packs/Day Years [...] on filedocumented in this encounter Care Teams Sheep Clipper Relationship Specialty Start Date End Date Amilcar Osorio MD [address] [facility] [address] [place] [address] PCP - General 05/01/17 09/04/19 documented as of this encounter
--- OUTSIDE RECORDS SUMMARY | 2024-10-30 06:54 | XMS_ITS | Encounter Summary ---
Author Organization [facility] Address [address] [place] [address]. [place], [place] [address] [place] [address] Care Team Providers Care Strawhat Sizer Name Role Phone Amilcar Osorio MD Primary Care Provider [phone] Md Generic Conversion Primary Care Provider Unavailable [...] Md Generic Conversion Primary Care Provider Unavailable Encounter Details Date Type Department Care Team (Late st Contact Info) Description 01/21/2013 [facility] [address] [place] [address] Rusty Mcfarlane, [place] [address] Social History Tobacco Use Types Packs/Day Years Used Date Smoking Tobacco: Never Assessed Sex and Gender Information Value Date Recorded Sex Assigned at Not on file Legal Sex Male 11:29 PM CDT Gender Identity Not on file Sexual Orientation Not on file documented as of this encounter Plan of Treatment Not on file documented as of this encounter Visit Diagnoses Diagnosis Localized osteoarthrosis, lower leg Localized osteoarthrosis not specified whether primary or secondary, lower leg documented in this encounter Care Teams Strawhat Sizer Relationship Specialty Start Date End Date Amilcar Osorio MD [address] [place] [address] PCP - General 05/01/17 09/04/19 Md, Generic [...] Generic Conversion, MD PCP - General 01/21/13 documented as of this encounter
--- OUTSIDE RECORDS SUMMARY | 2024-10-30 06:54 | XMS_ITS | Encounter Summary ---
Author Organization [facility] Address [address] [place] [address]. [place], [place] [address] [place] [address] Care Team Providers Care Paper Machine Backtender Name Role Phone Amilcar Osorio MD Primary Care Provider [phone] Jerry Rodriges MD Primary Care Provider Unavailable Encounter Details Date Type Department Care Team (Latest Contact Info) Description 11/10/2016 Abstract [facility] Medical Group Social History Tobacco [...] on filedocumented in this encounter Care Teams Paper Machine Backtender Relationship Specialty Start Date End Date Amilcar Osorio MD [address] [facility] [address] [place] [address] PCP - General 05/01/17 09/04/19 Jerry Rodriges MD PCP - General 10/29/13 7 documented as of this encounter
--- OUTSIDE RECORDS SUMMARY | 2024-10-30 06:54 | XMS_ITS | Encounter Summary ---
Author Organization [facility] Address [address] [place] [address]. [place], [place] [address] [place] [address] Care Team Providers Care Career Services Assistant Name Role Phone Amilcar Osorio MD Primary Care Provider [phone] Jerry Rodriges MD Primary Care Provider Unavailable Encounter Details Date Type Department Care Team (Latest Contact Info) Description 11/30/2016 Abstract [facility] Medical Group Social History Tobacco Use Types [...] on filedocumented in this encounter Care Teams Career Services Assistant Relationship Specialty Start Date End Date Amilcar Osorio MD [address] [facility] [address] [place] [address] PCP - General 05/01/17 09/04/19 Jerry Rodriges MD PCP - General 10/29/13 7 documented as of this encounter
--- OUTSIDE RECORDS SUMMARY | 2024-10-30 06:54 | XMS_ITS | Encounter Summary ---
Author Organization [facility] Address [address] [place] [address]. [place], [place] [address] [place] [address] Care Team Providers Care Manager Health Name Role Phone Amilcar Osorio MD Primary Care Provider [phone] Encounter Details Date Type Department Care Team (Late st Contact Info) Description 05/01/2017 Abstract [facility] [address] [place] [address] Amilcar Osorio MD [address] [facility] [address] [place] [address] Social History Tobacco Use Types Packs/Day Years Used Date Smoking Tobacco: Never Assessed Sex and Gender Information Value Date Recorded Sex Assigned at Not on file Legal Sex Male 11:29 PM CDT Gender Identity Not on file Sexual Orientation Not on file documented as of this encounter Plan of Treatment Not on file documented as of this encounter Visit Diagnoses Diagnosis Pain in left hip Pain in joint, pelvic region and thigh documented in this encounter Care Teams Manager Health Relationship Specialty Start Date End Date Amilcar Osorio MD [address] [facility] [address] [place] [address] PCP - General 05/01/17 09/04/19 documented as of this encounter
--- OUTSIDE RECORDS SUMMARY | 2024-10-30 06:54 | XMS_ITS | Encounter Summary ---
Author Organization [facility] Address [address] [place] [address]. [place], [place] [address] [place] [address] Care Team Providers Care Splicer Helper Name Role Phone Amilcar Osorio MD Primary Care Provider [phone] Encounter Details Date Type Department Care Team (Latest Contact Info) Description 02/05/2018 10:20 AM CDT - 02/05/2018 11:59 PM CDT Hospital Encounter [facility] [place] [address] Gina Fleming APNP [address] [place] [address] Discharge Disposition: Home or Self Care (Routine [...] 1 patch onto the skin. 11/06/2017 07/16/2019 documented as of this encounter Plan of Treatment Not on file documented as of this encounter Procedures Procedure Name Priority Date/Time Associated Diagnosis Comments PROSTATE SPECIFIC ANTIGEN,TOTAL Routine 02/05/2018 10:38 AM CDT Elevated prostate specific antigen (PSA) documented in this encounter Results * PROSTATE SPECIFIC ANTIGEN,TOTAL (02/05/2018 10:38 AM CDT) PSA 0.62 <4.00 NG/ML 02/05/2018 4:19 PM CDT [facility] Comment: Test was performed using the Siemens method. ??Results obtained with other assay methods or kits cannot be used interchangeably with results obtained by the Siemens method. 02/05/2018 10:3 8 AM CDT [facility] Final Result [facility] [address] [place] [address], documented in this encounter Visit Diagnoses Diagnosis Elevated prostate specific antigen (PSA) documented in this encounter Care Teams Splicer Helper Relationship Specialty Start Date End Date Amilcar Osorio MD [address] [place] [address] PCP - General 05/01/17 09/04/19 documented as of this encounter
--- OUTSIDE RECORDS SUMMARY | 2024-10-30 06:54 | XMS_ITS | Encounter Summary ---
Author Organization [facility] Address [address] [place] [address]. [place], [place] [address] [place] [address] Care Team Providers Care Integration Software Engineer Name Role Phone Amilcar Osorio MD Primary Care Provider Encounter Details Date Type Department Care Team (Latest Contact Info) Description 01/23/2018 Abstract [facility] Gina Fleming APNP [address] [place] [address] Social History Tobacco Use Types Packs/Day Years [...] Date/Time Associated Diagnosis Comments US TESTICULAR Routine 01/23/2018 10:00 AM CDT documented in this encounter Results * US TESTICULAR (01/23/2018 10:00 AM CDT) Anatomical Region Laterality Modality Pelvis Ultrasound 01/23/2018 10:0 0 AM CDT 01/23/2018 10:00 AM CDT Narrative 01/23/2018 1:06 PM CDT EXAMINATION: Scrotum ultrasound EXAM DATE/TIME: 01/23/2018 10:18 AM REASON FOR EXAM: ??Epididymal cyst ? Palpable mass left testicle. Left scrotal mass. No injury. Testicular cyst. Follow-up. COMPARISON: Testicular ultrasound 11/10/2017. TECHNIQUE: Ultrasound examination of the right and left testicle and scrotum was performed to assess grayscale appearance, color doppler flow, and spectral waveform characteristics. FINDINGS: Right testes: Normal in echogenicity, measuring ??3.9cm X 1.7cm X 2.9cm. in dimension. Color flow and spectral analysis of the right testicle is normal. No right intratesticular mass is seen. Right epididymis: Normal in echogenicity and color flow, measuring 1.3cm X 1.5cm. in dimension. Right epididymal head cyst measuring up to 7.5 mm. Right scrotum: Small right hydrocele. No right varicocele is seen. Left testes: Normal in echogenicity, measuring 4.0cm X 1.8cm X 3.1cm. in dimension. Color flow and spectral analysis of the left testicle is normal. Bilobed or septated cystic lesion inferior pole left testicle measuring up to 1.07 cm in greatest dimension. Compared to prior exam, this appears smaller than prior exam, septation appears thinner than prior exam, and less internal echoes. Left epididymis: Normal in echogenicity and color flow, measuring 1.8cm X 1.1cm. ??in dimension. Left epididymal head cyst measures up to 1.3 cm. Second left epididymal head cyst measures up to 6.8 mm. Left scrotum: No left hydrocele. No left varicocele is seen. No inguinal or scrotal hernia is seen. =====IMPRESSION:===== No right testicular mass or torsion. Right epididymal head cyst measuring up to 7.5 mm, is relatively stable. Septated or bilobed cyst left testicle inferior pole. Measures up to 1.07 cm. This has decreased in size. Septation appears thinner. Less internal echoes. 2 left epididymal head cysts noted. Largest cyst measures up to 1.3 cm. Small right hydrocele. Procedure Note , Generic Conversion, - 08/22/2018 EXAMINATION: Scrotum ultrasound EXAM DATE/TIME: 01/23/2018 10:18 AM REASON FOR EXAM: Epididymal cyst Palpable mass left testicle. Left scrotal mass. No injury. Testicular cyst. Follow-up. COMPARISON: Testicular ultrasound 11/10/2017. TECHNIQUE: Ultrasound examination of the right and left testicle and scrotum was performed to assess grayscale appearance, color dopplerflow, and spectral waveform characteristics. FINDINGS: Right testes: Normal in echogenicity, measuring 3.9cm X 1.7cm X 2.9cm.in dimension. Color flow and spectral analysis of the right testicle is normal. No right intratesticular mass is seen. Right epididymis: Normal in echogenicity and color flow, measuring 1.3cm X 1.5cm. in dimension. Right epididymal head cyst measuring up to 7.5 mm. Right scrotum: Small right hydrocele. No right varicocele is seen. Left testes: Normal in echogenicity, measuring 4.0cm X 1.8cm X 3.1cm. in dimension. Color flow and spectral analysis of the left testicle isnormal. Bilobed or septated cystic lesion inferior pole left testicle measuringup to 1.07 cm in greatest dimension. Compared to prior exam, this appears smaller than prior exam, septation appears thinner than prior exam, and less internal echoes. Left epididymis: Normal in echogenicity and color flow, measuring 1.8cm X 1.1cm. in dimension. Left epididymal head cyst measures up to 1.3 cm. Second left epididymal head cyst measures up to 6.8 mm. Left scrotum: No left hydrocele. No left varicocele is seen. No inguinal or scrotal hernia is seen. =====IMPRESSION:===== No right testicular mass or torsion. Right epididymal head cyst measuring up to 7.5 mm, is relatively stable. Septated or bilobed cyst left testicle inferior pole. Measures up to1.07 cm. This has decreased in size. Septation appears thinner. Less internal echoes. 2 left epididymal head cysts noted. Largest cyst measures up to 1.3 cm. Small right hydrocele. us Gina CORTES ULTRASOUND Final Result documented in this encounter Visit Diagnoses Not on filedocumented in this encounter Care Teams Integration Software Engineer Relationship Specialty Start Date End Date Amilcar Osorio MD [address] [place] [address] PCP - General 05/01/17 09/04/19 documented as of this encounter
--- OUTSIDE RECORDS SUMMARY | 2024-10-30 06:54 | XMS_ITS | Encounter Summary ---
Author Organization [facility] Address [address] [place] [address]. [place], [place] [address] [place] [address] Care Team Providers Care Fine Arts Teacher Name Role Phone Amilcar Osorio MD Primary Care Provider [phone] Encounter Details Date Type Department Care Team (Late st Contact Info) Description 11/16/2017 Abstract [facility] Medical [facility] Multispecialty Care - [facility] [address] [facility] [address] [place] [id number] Gina Fleming APNP [address] [place] [address] Social History Tobacco Use Types Packs/Day Years Used Date Smoking Tobacco: Never Assessed Sex and Gender Information Value Date Recorded Sex Assigned at Not on file Legal Sex Male 11:29 PM CDT Gender Identity Not on file Sexual Orientation Not on file documented as of this encounter Last Filed Vital Signs Vital Sign Reading Time Taken Comments Blood Pressure 138/90 11/16/2017 9:28 AM CARROT BUNCHER Pulse 69 11/16/2017 9:28 AM CARROT BUNCHER Temperature - - Respiratory Rate - - Oxygen Saturation - - Inhaled Oxygen Concentration - - Weight 115.1 kg (253 lb 12.8 oz) 11/16/2017 9:28 AM CARROT BUNCHER Height 175.3 cm (5' 9 ) 11/16/2017 9:28 AM CARROT BUNCHER Body Mass Index 37.48 11/16/2017 9:28 AM CARROT BUNCHER documented in this encounter Progress Notes * Gina Fleming, SEBASTIAN - 11/16/2017 10:40 AM CST Chief Complaint u/s results History of Present Illness ,n HPI: 57-year-old male with a history of BPH and erectile dysfunction presents today to discuss results of a testicular ultrasound ordered by his GP after first noticing a palpable lump to his left testicle four-months ago. Scrotal ultrasound done November 10, 2017, impression: Complex left intratesticular cyst measuring 1.3 cm. Bilateral epididymal cysts. He denies any pain to his testicles. He denies any irritative or obstructive voiding symptoms. He wakes 2 times at night to void. No gross hematuria or dysuria. No systemic or constitutional complaints. No family history of testicular cancer. Review of Systems Constitutional: no fever, no chills and no fatigue. Gastrointestinal: no abdominal pain, no nausea and no vomiting. Genitourinary: nocturia, but no dysuria, no urinary frequency, no urinary urgency, no urinary incontinence, no urinary hesitancy, no hematuria, no pelvic pain and no testicular pain. Active Problems 1. Elevated prostate specific antigen (PSA) (790.93) (R97.20) 2. Hip pain, left (719.45) (M25.552) 3. Knee pain, unspecified laterality 4. 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 Primary osteoarthritis of right knee (715.16) (M17.11) [...] Tablet; TK 1 T PO BID; Therapy: [id number] to Recorded Rx By: BINDU ALMANZA; Dispense: 30 Days ; #:60; Refill: 0; MARK = N; Record; Last Updated By: Jayshree Galvez; 06/20/2017 9:24:38 AM 2. HydroCHLOROthiazide 25 MG Oral Tablet; TK 1 T PO QAM; Therapy: [id number] to Recorded Rx By: BINDU ALMANZA; Dispense: 30 Days ; #:30; Refill: 0; MARK = N; Record; Last Updated By: Jayshree Galvez; 06/20/2017 9:24:38 AM 3. Ibuprofen 600 MG Oral Tablet; TK 1 T PO PO TID PRN WITH FOOD; Therapy: [id number] to Recorded Dispense: 20 Days ; #:60; Refill: 0; MARK = N; Record; Last Updated By: Adelaida Guzman; 11/23/2012 8:57:38 AM 4. Latanoprost 0.005 % Ophthalmic Solution; INSTILL 1 DROP INTO BOTH EYES QHS; Therapy: [id number] to Recorded Rx By: CARLOS MEEKS; Dispense: 25 Days ; #:2; Refill: 0; MARK = N; Record; Last Updated By: Jayshree Galvez; 06/20/2017 9:24:38 AM 5. Nicotine Step 1 21 MG/24HR Transdermal Patch 24 Hour; APPLY 1 PATCH QD; Therapy: [id number] to Recorded Rx By: BINDU ALMANZA; Dispense: 28 Days ; #:28; Refill: 0; MARK = N; Record; Last Updated By: Jayshree Galvez; 06/20/2017 9:24:38 AM 6. Nicotine Step 2 14 MG/24HR Transdermal Patch 24 Hour; APPLY 1 PATCH QD; Therapy: [id number] to Recorded Rx By: BINDU ALMANZA; Dispense: 14 Days ; #:14; Refill: 0; MARK = N; Record; Last Updated By: Jayshree Galvez; 06/20/2017 9:24:38 AM 7. Symbicort 160-4.5 MCG/ACT Inhalation Aerosol; INL 2 PUFFS PO Q 12 HOURS UTD; Therapy: [id number] to Recorded Rx By: BINDU ALMANZA; Dispense: 30 Days ; #:10; Refill: 0; MARK = N; Record; Last Updated By: Jayshree Galvez; 06/20/2017 9:25:49 AM 8. Viagra 100 MG Oral Tablet; TAKE DIRECTED; Therapy: [id number] to (Last Rx:[id number]) Ordered Rx By: Harish Pitt; Dispense: 0 Days ; #:6 Tablet; Refill: 2; For: Elevated prostate specific antigen (PSA), Male erectile disorder of organic origin; MARK = N; Print Rx; Last Updated By: Shari Nichols; 05/03/2016 9:54:51 AM 9. Viagra 50 MG Oral Tablet; TAKE DIRECTED; Therapy: [id number] to (Evaluate:[id number]); Last Rx:[id number] Ordered Rx By: Gina Fleming; Dispense: 4 Days ; #:4 Tablet; Refill: 0; For: Male erectile disorder of organic origin; MARK = N; Dispense Sample; Last Updated By: Jayshree Galvez; 06/20/2017 9:50:38 AM Allergies 1. Lisinopril TABS Recorded By: Argelia Bailey; 03/27/2015 10:02:27 AM 2. Penicillins Recorded By: Shari Nichols; 06/11/2012 12:14:24 PM Vitals Recorded: 16Nov2017 09:28AM Temperature 98 F Heart Rate 69 Systolic 138 Diastolic 90 Not able to obtain height Patient stated height Height 5 ft 9 in Weight 253 lb 12.8 oz BMI Calculated 37.48 BSA Calculated 2.29 Physical Exam Constitutional General appearance: No acute distress, well appearing and well nourished. Genitourinary Scrotum contents: Normal size, no masses. palpable left epididymal cyst. No palpable intratesticular mass.. Testes: Normal testes, no masses. Urethral meatus: Normal, no lesions. Penis: Normal, no lesions. Psychiatric Orientation to person, place and time: Normal. Assessment Left intratesticular complex cyst Bilateral epididymal cysts Plan He will obtain Tumor markers at this time. I will notify him of abnormal results. Otherwise he willfollowup in 2 months with a previsit testicular US for continued assessment of intratesticular complex cyst. He has requested that we fill out a pre authorization for his rx of Viagra. This will be done and faxed to his insurance company. Signatures Electronically signed by : Gina Fleming APN; Nov 16 2017 11:55AM CARROT BUNCHER (Author) documented in this encounter Plan of Treatment Not on file documented as of this encounter Procedures Procedure Name Priority Date/Time Associated Diagnosis Comments URINALYSIS AUTO DIP Routine 11/16/2017 9 :30 AM CARROT BUNCHER documented in this encounter Results * URINALYSIS AUTO DIP (11/16/2017 9:30 AM CARROT BUNCHER) GLUCOSE Negative [facility] T O EPIC CONVERSION BILIRUBIN (U) Negative [facility] UP TO EPIC CONVERSION KETONE (U) Negative [facility] TO EPIC CONVERSION SPECIFIC GRAVITY (U) 1.015 [facility] TO EPIC CONVERSION BLOOD (U) Negative [facility] T O EPIC CONVERSION PH (U) 6.5 5.0 - 7.0 [facility] T O EPIC CONVERSION PROTEIN (ELP) (U) Negative [facility] TO EPIC CONVERSION UROBILINOGEN Negative [facility] P TO EPIC CONVERSION NITRITES neg [facility] T O EPIC CONVERSION LEUKOCYTES (U) Negative [facility] OUP TO EPIC CONVERSION 11/16/2017 9:30 AM CARROT BUNCHER 11/16/2017 9:30 AM CARROT BUNCHER Narrative [facility] TO EPIC CONVERSION - 11/16/2017 9:29 AM CARROT BUNCHER Result Communication: No patient communication needed at this time us Gina Fleming APNP URINE ORDERABLES Final Result Performing Organization Address City/State/[facility] Co de Phone Number [facility] TO EPIC CONVERSION documented in this encounter Visit Diagnoses Not on filedocumented in this encounter Care Teams Fine Arts Teacher Relationship Specialty Start Date End Date Amilcar Osorio MD [address] [place] [address] PCP - General 05/01/17 09/04/19 documented as of this encounter
--- OUTSIDE RECORDS SUMMARY | 2024-10-30 06:54 | XMS_ITS | Encounter Summary ---
Author Organization [facility] Address [address] [place] [address]. [place], [place] [address] [place] [address] Care Team Providers Care Silk Printer Name Role Phone Amilcar Osorio MD Primary Care Provider [phone] Encounter Details Date Type Department Care Team (Latest Contact Info) Description 11/16/2017 10:55 AM REAMER HAND - 11/16/2017 11:59 PM REAMER HAND Hospital Encounter [facility] [place] [address] Gina Fleming APNP [address] [place] [address] Discharge Disposition: Home or Self Care (Routine [...] Procedure Name Priority Date/Time Associated Diagnosis Comments AFP TUMOR MARKER Routine 11/16/2017 11:1 9 AM REAMER HAND Elevated prostate specific antigen (PSA) HCG QUANT (SERUM)-CHORIONIC GONADOTROPIN Routine 11/16/2017 11:19 AM REAMER HAND Elevated prostate specific antigen (PSA) documented in this encounter Results * BHCG QUANT (SERUM)-CHORIONIC GONADOTROPIN (11/16/2017 11:19 AM REAMER HAND) HCG QUANTITATIVE <1 MIU/ML 11/16/19 18 12:53 PM REAMER HAND [facility] Comment: WEEKS OF ? REFERENCE RANGES non- female ? < or = 2 ? 3 ? 3 - ?72 ? 4 ?10 - ? 708 ? 5 ? 217 - ?? 8,245 ? 6 ? 152 - ??32,177 ? 7 ? 4,059 - 153,767 ? 8 ?31,366 - 149,094 ? 9 ?59,109 - 135,901 ?10 ?44,186 - 170,409 ?12 ?27,107 - 201,615 ?14 ?24,302 - ??93,646 ?15 ?12,540 - ??23,177 ?16 ? 8,904 - ??55,332 ?17 ? 8,240 - ??51,793 ?18 ? 9,649 - ??55,271 11/16/2017 11:1 9 AM REAMER HAND Gina Fleming AP LABORATORY Final Result Performing Organization Address [facility] de Phone Number [facility] [address] [place] [address], * AFP TUMOR MARKER (11/16/2017 11:19 AM REAMER HAND) FETOGLOBULIN 1.7 0.5 - 8.0 NG/ML 11/16/2017 12:53 PM REAMER HAND [facility] Comment: Test was performed using the Siemens method. ??Results obtained with other assay methods or kits cannot be used interchangeably with results obtained by the Siemens method. 11/16/2017 11:1 9 AM REAMER HAND Gina Fleming APNP LABORATORY Final Result Performing Organization Address [facility] de Phone Number [facility] [address] [place] [address], documented in this encounter Visit Diagnoses Diagnosis Elevated prostate specific antigen (PSA) documented in this encounter Care Teams Silk Printer Relationship Specialty Start Date End Date Amilcar Osorio MD [address] [place] [address] PCP - General 05/01/17 09/04/19 documented as of this encounter
--- OUTSIDE RECORDS SUMMARY | 2024-10-30 06:54 | XMS_ITS | Encounter Summary ---
Author Organization [facility] Address [address] [place] [address]. [place], [place] [address] [place] [address] Care Team Providers Care Automotive Tire Worker Name Role Phone Amilcar Osorio MD Primary Care Provider [phone] Md Generic Conversion Primary Care Provider Unavailable [...] Department Care Team (Latest Contact Info) Description 01/31/2013 Abstract [facility] Social History Tobacco Use Types [...] on filedocumented in this encounter Care Teams Automotive Tire Worker Relationship Specialty Start Date End Date Amilcar Osorio MD [address] [facility], [facility] [address] [place] [address] PCP - General 05/01/17 09/04/19 Jerry Rodriges MD PCP - General 10/29/13 7 Md, [...] PCP - General 03/01/13 Md, Generic Conversion, PCP - General 02/21/13 3 Md, Generic Conversion, MD PCP - General 01/21/13 documented as of this encounter
--- OUTSIDE RECORDS SUMMARY | 2024-10-30 06:54 | XMS_ITS | Encounter Summary ---
Author Organization [facility] Address [address] [place] [address]. [place], [place] [address] [place] [address] Care Team Providers Care Grain Sacker Name Role Phone Amilcar Osorio MD Primary Care Provider [phone] Encounter Details Date Type Department Care Team (Latest Contact Info) Description 02/06/2018 Abstract [facility] Md, Jerry Dempsey, Social History Tobacco Use Types Packs/Day Years Used Date Smoking Tobacco: Never Assessed Sex and Gender Information Value Date Recorded Sex Assigned at Not on file Legal Sex Male 11:29 PM CDT Gender Identity Not on file Sexual Orientation Not on file documented as of this encounter Progress Notes * SEBASTIAN Samuel - 02/06/2018 9:13 AM CDT Message Recorded as Task Date: 02/05/2018 03:40 PM, Created By: Davina Bergeron Task Name: Informational Assigned To: -Nurse Team Regarding Patient: Josafat Calvo, Status: In Progress Comment: Davina Bergeron - 05 Feb 2018 3:40 PM TASK CREATED [place], from Dr. Osorio's office called to let us know that Viagra is not covered by Medicare or Public Aide. So their office will not be doing anything with that. Maxine Whitehead 06 Feb 2018 9:08 AM TASK IN PROGRESS Maxine Whitehead 06 Feb 2018 9:13 AM TASK EDITED Per last task, patient called and informed that prior auth was denied. Patient verbalized understanding. Signatures Electronically signed by : Maxine Whitehead R.N.; Feb 06 2018 9:13AM SALES RESEARCH ANALYST (Author) * SEBASTIAN Samuel - 02/06/2018 9:12 AM CDT Message Recorded as Task Date: 01/23/2018 12:21 PM, Created By: Tracey Avina Task Name: Follow Up Assigned To: -Nurse Team Regarding Patient: Josafat Calvo, Status: In Progress Comment: Tracey Avina - 23 Jan 2018 12:21 PM TASK CREATED General Medical Question Dr Osorio's Office is calling re: pt getting a Viagra script from them rather than us--has some questions [phone] Charisse Hansen RN - 25 Jan 2018 1:[address] Osorio's office calling again regarding Viagra script. Please call back @ ext [phone] [place] WISDOM. Davina Bergeron - 26 Jan 2018 9:09 AM TASK EDITED [place] from Dr. Osorio's office called again, and said that the patient keeps calling them, wantinga refill on his Viagra.. they have never filled it for him, but they keep getting a PA request sentto them from [facility]... Please call them to let them know what to do.. Ext. [phone]. Maxine Whitehead - 26 Jan 2018 1:33 PM TASK REASSIGNED: Previously Assigned To -Nurse Team Please advise.. Gina Fleming - 26 Jan 2018 1:39 PM TASK REPLIED TO: Previously Assigned To Gina Fleming call and let them know we will refill it for him. Call [facility] for Viagra 50 mg 1 tab Po PRN 1hour prior to intercourse. #6 no refills Maxine Whitehead 26 Jan 2018 1:53 PM TASK IN PROGRESS Maxine Whitehead 26 Jan 2018 2:49 PM TASK EDITED Called Dr. Osorio's office regarding prescription. Let them know that prescription was sent to patient's pharmacy. Sunya, RN faxed over the PA that was sent to their office. PA was filled out and faxed to [facility]. Will await response from [facility]. Maxine Whitehead - 26 Jan 2018 2:50 PM TASK REASSIGNED: Previously Assigned To -Nurse Team LiendimaMaxine daily 29 Jan 2018 12:09 PM TASK EDITED Prior auth for sildenafil came back denied. Attempted to call patient to inform of this, but voicemail box has not been set up. Will attempt to contact patient again. Charisse Tovar - 29 Jan 2018 1:57 PM TASK EDITED pt returned call. Please follow up Maxine Whitehead 30 Jan 2018 9:23 AM TASK EDITED Attempted to call patient again, but voicemail box is not set up. Will attempt to contact again. Elina Schumacher - 30 Jan 2018 10:17 AM TASK EDITED patient returned missed call Miguelmary[place]ianMaxine 30 Jan 2018 11:09 AM TASK EDITED Called patient and spoke with him regarding his prescription prior auth being denied. Pt stated that his PCP is the one who stated that the medication may be covered. Patient is scheduled for a follow up on 02/05/2018 and he stated he would discuss the medication with Gina at that time. Called 's office to follow up regarding what patient stated, and they said that they will speak with the MD and call back with more information. Maxine Whitehead - 06 Feb 2018 9:12 AM TASK EDITED Patient informed that prior auth was denied for the script. Patient verbalized understanding. Signatures Electronically signed by : Maxine Whitehead R.N.; Feb 06 2018 9:13AM SALES RESEARCH ANALYST (Author) documented in this encounter Plan of Treatment Not on file documented as of this encounter Visit Diagnoses Not on filedocumented in this encounter Care Teams Grain Sacker Relationship Specialty Start Date End Date Amilcar Osorio MD [address] [place] [address] PCP - General 05/01/17 09/04/19 documented as of this encounter
--- OUTSIDE RECORDS SUMMARY | 2024-10-30 06:54 | XMS_ITS | Encounter Summary ---
Author Organization [facility] Address [address] [place] [address]. [place] [address] [place] [address] Care Team Providers Care Safety Clothing And Equipment Developer Name Role Phone Amilcar Osorio MD Primary Care Provider [phone] Md Generic Conversion Primary Care Provider Unavailable [...] Care Team (Late st Contact Info) Description 02/21/2013 Abstract [facility] [address] [place] [address] [address], [place] [address] Social History Tobacco Use Types Packs/Day Years Used Date Smoking Tobacco: Never Assessed Sex and Gender Information Value Date Recorded Sex Assigned at Not on file Legal Sex Male 11:29 PM CDT Gender Identity Not on file Sexual Orientation Not on file documented as of this encounter Plan of Treatment Not on file documented as of this encounter Visit Diagnoses Diagnosis Encounter for other physical therapy documented in this encounter Care Teams Safety Clothing And Equipment Developer Relationship Specialty Start Date End Date Amilcar Osorio MD [address] [place] [address] PCP - General 05/01/17 09/04/19 Md, Generic [...] Conversion, MD PCP - General 02/21/13 3 documented as of this encounter
--- OUTSIDE RECORDS SUMMARY | 2024-10-30 06:54 | XMS_ITS | Encounter Summary ---
Author Organization [facility] Address [address] [place] [address]. [place], [place] [address] [place] [address] Care Team Providers Care Tobacco Dipper Name Role Phone Amilcar Osorio MD Primary Care Provider Encounter Details Date Type Department Care Team (Late st Contact Info) Description 11/16/2017 Orders Only [facility] [place] [address] Gina Fleming APNP [address] [place] [address] Social History Tobacco Use Types Packs/Day Years Used Date Smoking Tobacco: Never Assessed Sex and Gender Information Value Date Recorded Sex Assigned at Not on file Legal Sex Male 11:29 PM CDT Gender Identity Not on file Sexual Orientation Not on file documented as of this encounter Plan of Treatment Not on file documented as of this encounter Results * BHCG QUANT (SERUM)-CHORIONIC GONADOTROPIN (11/16/2017 11:19 AM NURSES DIRECTOR) HCG QUANTITATIVE <1 MIU/ML 11/16/19 12:53 PM NURSES DIRECTOR [facility] Comment: WEEKS OF ? REFERENCE RANGES [...] ?14 ?24,302 - ??93,646 ?15 ?12,540 - ??69,747 ?16 ? 8,904 - ??55,332 ?17 ? 8,240 - ??51,793 ?18 ? 9,649 - ??55,271 11/16/2017 11:1 9 AM NURSES DIRECTOR us Gina Fleming APNP LABORATORY Final Result Performing Organization Address City/State/[facility] Co de Phone Number [facility] [address] [place] [address], [place] [phone] * AFP TUMOR MARKER (11/16/2017 11:19 AM NURSES DIRECTOR) FETOGLOBULIN 1.7 0.5 - 8.0 NG/ML 11/16/2017 12:53 PM NURSES DIRECTOR [facility] Comment: Test was performed using the Siemens method. ??Results obtained with other assay methods or kits cannot be used interchangeably with results obtained by the Siemens method. 11/16/2017 11:1 9 AM NURSES DIRECTOR Gina CORTES LABORATORY Final Result [facility] [address] [place] [address], documented in this encounter Visit Diagnoses Diagnosis Elevated prostate specific antigen (PSA)- Primary documented in this encounter Care Teams Tobacco Dipper Relationship Specialty Start Date End Date Amilcar Osorio MD [address] [place] [address] PCP - General 05/01/17 09/04/19 documented as of this encounter
--- OUTSIDE RECORDS SUMMARY | 2024-10-30 06:54 | XMS_ITS | Encounter Summary ---
Author Organization [facility] Address [address] [place] [address]. [place] [address] [place] [address] Care Team Providers Care Security Systems Integrator Name Role Phone Amilcar Osorio MD Primary Care Provider [phone] Md Generic Conversion Primary Care Provider Unavailable Md Generic Conversion Primary Care Provider Unavailable Md Generic Conversion Primary Care Provider Unavailable Md Generic Conversion Primary Care Provider Unavailable Md Generic Conversion Primary Care Provider Unavailable Encounter Details Date Type Department Care Team (Late st Contact Info) Description 03/27/[address] [facility] Quick TV Arts [facility] Physical Therapy [address] [place] [id number] Rusty Mcfarlane, [facility] [address] [address] Social History Tobacco Use Types Packs/Day Years [...] therapy documented in this encounter Care Teams Security Systems Integrator Relationship Specialty Start Date End Date Amilcar Osorio MD [address], [facility] [address] [place], [place] [address] PCP - General 05/01/17 09/04/19 Md, Generic Conversion, MD PCP - General 10/29/13 7 , Generic Conversion, MD PCP - General 09/09/1310/28 , Generic Conversion, MD PCP - General 05/20/1309/08 , Generic Conversion, MD PCP - General 03/28/13 , Generic Conversion, MD PCP - General 03/27/13 documented as of this encounter
--- OUTSIDE RECORDS SUMMARY | 2024-10-30 06:54 | XMS_ITS | Encounter Summary ---
Author Organization [facility] Address [address] [place] [address]. [place], [place] [address] [place] [address] Care Team Providers Care Internet Consultant Name Role Phone Amilcar Osorio MD Primary Care Provider [phone] Encounter Details Date Type Department Care Team (Late st Contact Info) Description 12/04/2017 Orders Only [facility] [address] [facility] [address] [address] Gina Fleming APNP [address] [place] [id number] [place] [id number] Social History Tobacco Use Types Packs/Day Years Used Date Smoking Tobacco: Never Assessed Sex and Gender Information Value Date Recorded Sex Assigned at Not on file Legal Sex Male 11:29 PM CDT Gender Identity Not on file Sexual Orientation Not on file documented as of this encounter Plan of Treatment Not on file documented as of this encounter Visit Diagnoses Diagnosis Elevated prostate specific antigen (PSA) documented in this encounter Care Teams Internet Consultant Relationship Specialty Start Date End Date Amilcar Osorio MD [address] [facility] [address] [place] [address] PCP - General 05/01/17 09/04/19 documented as of this encounter
--- OUTSIDE RECORDS SUMMARY | 2024-10-30 06:54 | XMS_ITS | Encounter Summary ---
Author Organization [facility] Address [address] [place] [address]. [place], [place] [address] [place] [address] Care Team Providers Care Music Executive Name Role Phone Amilcar Osorio MD Primary Care Provider [phone] Md Generic Conversion Primary Care Provider Unavailable [...] Care Team (Late st Contact Info) Description 12/13/2012 Abstract [facility] Medical Group Multispecialty Care - [address], [address] [place] [address] Rusty Mcfarlane, [address] [address] Social History Tobacco Use Types Packs/Day Years Used Date Smoking Tobacco: Never Assessed Sex and Gender Information Value Date Recorded Sex Assigned at Not on file Legal Sex Male 11:29 PM CDT Gender Identity Not on file Sexual Orientation Not on file documented as of this encounter Progress Notes * Rusty Mcfarlane, - 12/13/2012 10:00 AM CST Reason For Visit Chronic Recheck Visit Referred By / Reason See dictated note by Rusty Mcfarlane DO Patient was referred by Primary Care Physician Name: Dr Zainab Palmer Reason: History of Present Illness 52 y/o right hand dominant BM here for MRI results of his R knee pain, he has sharp pains on the medial side, he is taking ibuprofe would like to discuss surgery options. Wandering if he can get somepain meds. Review of Systems Constitutional: negative. Eyes: negative. ENT: negative. Cardiovascular: negative. Respiratory: negative. Gastrointestinal: negative. Genitourinary: negative. Musculoskeletal: generalized muscle aches, joint swelling and joint stiffness, but as noted in HPI. Integumentary and Breasts: negative. Neurological: negative. Psychiatric: negative. Endocrine: negative. Hematologic and Lymphatic: negative. Active [...] Tablet; TK ONE T PO D; Therapy: 62Sgw1409 to 3. ClonazePAM 0.5 MG Oral Tablet; TK 1 T PO TID; Therapy: 24Apr2012 to 4. CloNIDine HCl 0.2 MG Oral Tablet; TK 1 T PO TID; Therapy: 06Lsn4886 to 5. Diovan 160 MG Oral Tablet; Therapy: (Recorded:10Tgv0524) to 6. Divalproex Sodium 250 MG Oral Tablet Delayed Release; TK 1 T PO TID; Therapy: 90Wmn2472 to 7. Hydrocodone-Acetaminophen 7.5-325 MG Oral Tablet; TK 1 T PO Q 6 H; Therapy: 01Mar2012 to 8. HydrOXYzine Pamoate 50 MG Oral Capsule; TK ONE C PO TID; Therapy: 01Feb2012 to 9. Ibuprofen 600 MG Oral Tablet; TK 1 T PO PO TID PRN WITH FOOD; Therapy: 81Nru5758 to 10. Losartan Potassium 100 MG Oral Tablet; TK 1 T PO D; Therapy: 01Mar2012 to 11. Metoprolol Succinate ER 100 MG Oral Tablet Extended Release 24 Hour; TK ONE T PO D; Therapy: 27Mar2012 to 12. ProAir HFA 108 (90 Base) MCG/ACT Inhalation Aerosol Solution; INL 2 PUFFS PO Q 4 TO 6 H PRN FOR SOB OR WHEEZING; Therapy: 01Mar2012 to 13. Ranitidine HCl 150 MG Oral Tablet; TK 1 T PO BID; Therapy: 01Mar2012 to 14. Remeron 30 MG Oral Tablet; Therapy: (Recorded:89Vuz8645) to 15. RisperDAL TABS; Therapy: (Recorded:04Fyh2478) to 16. RisperiDONE 2 MG Oral Tablet; TK 1 T PO QAM AND 2 TS QPM; Therapy: 44Foy5484 to 17. Singulair 10 MG Oral Tablet; TK ONE T PO D; Therapy: 21Emz4745 to 18. TraZODone HCl 100 MG Oral Tablet; TK 1 T PO QHS; Therapy: 90Bne2939 to Allergies 1. Penicillins Vitals 98Jyj4871 10:43AM Pain Scale 8-9 Assessment 1. Joint Pain, Localized In The Knee Right 719.46 2. Localized Primary Osteoarthritis Of The Right Knee 715.16 Plan 1. Hydrocodone-Acetaminophen 5-500 MG Oral Tablet; TAKE 1 TABLET EVERY 6 HOURS NEEDED FOR PAIN; Therapy: 21Kfc8067 to (Evaluate:28Dec2012); Last Rx:[id number] Signatures Electronically signed by : Rusty Mcfarlane D.O.; Jan 06 2013 2:12PM (Author) ICAL EVALUATOR documented in this encounter Plan of Treatment Not on file documented as of this encounter Visit Diagnoses Not on filedocumented in this encounter Care Teams Music Executive Relationship Specialty Start Date End Date Amilcar Osorio MD [address] [place] [address] PCP - General 05/01/17 09/04/19 Md Generic Conversion, PCP - General 10/29/13 7 Md Generic Conversion, PCP - General 09/09/1310/28 Md Generic Conversion, PCP - General 05/20/1309/08 , Generic Conversion, PCP - General 03/28/13 Md Generic Conversion, PCP - General 03/27/13 Md Generic Conversion, PCP - General 03/19/13 Md Generic Conversion, PCP - General 03/14/13 , Generic Conversion, PCP - General 03/01/13 Md, Generic Conversion, PCP - General 02/21/13 3 Md Generic Conversion, PCP - General 01/21/13 Md, Generic Conversion, MD PCP - General 01/17/13 , Generic Conversion, MD PCP - General 12/14/12 , Generic Conversion, MD PCP - General 12/10/12 documented as of this encounter
--- OUTSIDE RECORDS SUMMARY | 2024-10-30 06:54 | XMS_ITS | Encounter Summary ---
Author Organization [facility] Address [address] [place] [address]. [place] [address] [place] [address] Care Team Providers Care Raise Miner Name Role Phone Amilcar Osorio MD Primary Care Provider [phone] Jerry Rodriges MD Primary Care Provider Unavailable Encounter Details Date Type Department Care Team (Late st Contact Info) Description 02/05/2015 Abstract [facility] Medical Group Multispecialty Care - [facility] [address] [facility], [address] [place] [phone] Harish Pitt MD [address] [facility] [address] [place] [address] Social History Tobacco Use Types Packs/Day Years Used Date Smoking Tobacco: Never Assessed Sex and Gender Information Value Date Recorded Sex Assigned at Not on file Legal Sex Male 11:29 PM CDT Gender Identity Not on file Sexual Orientation Not on file documented as of this encounter Progress Notes * Jerry Dempsey Md, MD - 02/05/2015 4:22 PM CDT Message Message: Patient no showed for appointment on 02/05/15. No need to call the patient and R/S per KEP. Signatures Electronically signed by : Shari Armijo, ; Feb 05 2015 4:22PM CLINICAL ADMINISTRATOR (Author) documented in this encounter Plan of Treatment Not on file documented as of this encounter Visit Diagnoses Not on filedocumented in this encounter Care Teams Raise Miner Relationship Specialty Start Date End Date Amilcar Osorio MD [address] [place] [address] PCP - General 05/01/17 09/04/19 Jerry Rodriges MD PCP - General 10/29/13 7 documented as of this encounter
--- OUTSIDE RECORDS SUMMARY | 2024-10-30 06:54 | XMS_ITS | Encounter Summary ---
Author Organization [facility] Address [address] [place] [address]. [place], [place] [address] [place] [address] Care Team Providers Care Multimedia Production Assistant Name Role Phone Amilcar Osorio MD Primary Care Provider [phone] Md Generic Conversion Primary Care Provider Unavailable [...] Department Care Team (Latest Contact Info) Description 01/23/2013 Abstract [facility] Medical Group Social History Tobacco Use [...] on filedocumented in this encounter Care Teams Multimedia Production Assistant Relationship Specialty Start Date End Date Amilcar Osorio MD [address] [facility], [facility] 400 [place] [address] PCP - General 05/01/17 09/04/19 Jerry Rodriges [...]
--- OUTSIDE RECORDS SUMMARY | 2024-10-30 06:54 | XMS_ITS | Encounter Summary ---
Author Organization [facility] Address [address] [place] [address]. [place] [address] [place] [address] Care Team Providers Care Chief Specialist Leed Name Role Phone Amilcar Osorio MD Primary Care Provider [phone] Md Generic Conversion Primary Care Provider Unavailable [...] Primary Care Provider Unavailable Md Generic Conversion MD Primary Care Provider Unavailable Encounter Details Date Type Department Care Team (Late st Contact Info) Description 01/17/2013 Abstract [place] [address] Rusty Mcfarlane, DO [address] [place] [address] Social History Tobacco Use Types Packs/Day Years Used Date Smoking Tobacco: Never Assessed Sex and Gender Information Value Date Recorded Sex Assigned at Not on file Legal Sex Male 11:29 PM CDT Gender Identity Not on file Sexual Orientation Not on file documented as of this encounter Plan of Treatment Not on file documented as of this encounter Visit Diagnoses Diagnosis Other specified pre-operative examination documented in this encounter Care Teams Chief Specialist Leed Relationship Specialty Start Date End Date Amilcar Osorio MD [address] [place] [address] PCP - General 05/01/17 09/04/19 Md, Generic [...] Generic Conversion, MD PCP - General 01/17/13 documented as of this encounter
--- OUTSIDE RECORDS SUMMARY | 2024-10-30 06:54 | XMS_ITS | Encounter Summary ---
Author Organization [facility] Address [address] [place] [address]. [place], [place] [address] [place] [address] Care Team Providers Care Deputy Sheriff Lieutenant Name Role Phone Amilcar Osorio MD Primary Care Provider [phone] Encounter Details Date Type Department Care Team (Latest Contact Info) Description 12/04/2017 Abstract [facility] Medical Group Social History Tobacco Use Types Packs/Day Years Used Date Smoking Tobacco: Never Assessed Sex and Gender Information Value Date Recorded Sex Assigned at Not on file Legal Sex Male 11:29 PM CDT Gender Identity Not on file Sexual Orientation Not on file documented as of this encounter Progress Notes * SEBASTIAN Echeverria - 12/04/2017 3:05 PM CST Message Recorded as Task Date: 12/04/2017 08:47 AM, Created By: Gina Fleming Task Name: Informational Assigned To: -Nurse Team Regarding Patient: Josafat Calvo, Status: Active Comment: Gina Fleming - 04 Dec 2017 8:47 AM TASK CREATED He had tumor markers done but unfortunately I never received an LDH to review. Can you look into this and if it wasn't done will you please order LDH and have him get it done? Judy Albarran - 04 Dec 2017 3:09 PM TASK EDITED Spoke with [facility] LDH not obtained. Pt informed. Pt states will have lab work obtained when he comes on 12/13/17. Pt verbalized understanding . Lab order mailed to pt. Plan 1. Lactate Dehydrogenase ( LDH ); Status:Active; Requested for:[id number]; Perform:[facility]; Due:03Jan2018; Last Updated By:Judy Villareal; 12/04/2017 3:06:36 PM;Ordered; For:Elevated prostate specific antigen (PSA); Ordered By:Gina Fleming; Signatures Electronically signed by : Judy Villareal, ; Dec 04 2017 3:09PM LAW FIRM RECEPTIONIST (Author) documented in this encounter Plan of Treatment Not on file documented as of this encounter Visit Diagnoses Not on filedocumented in this encounter Care Teams Deputy Sheriff Lieutenant Relationship Specialty Start Date End Date Amilcar Osorio MD [address] [place] [address] PCP - General 05/01/17 09/04/19 documented as of this encounter
--- OUTSIDE RECORDS SUMMARY | 2024-10-30 06:54 | XMS_ITS | Encounter Summary ---
Author Organization [facility] Address [facility]. [place], [place] [address] [place] [address] Care Team Providers Care Vending Machine Operator Name Role Phone Amilcar Osorio MD Primary Care Provider [phone] Jerry Rodriges MD Primary Care Provider Unavailable Encounter Details Date Type Department Care Team (Latest Contact Info) Description 01/10/2014 Abstract [facility] Medical Group Harish Pitt MD [address] [facility] [address] [place] [address] Social History Tobacco Use Types Packs/Day Years [...] on filedocumented in this encounter Care Teams Vending Machine Operator Relationship Specialty Start Date End Date Amilcar Osorio MD [address] [facility], [place] [address] [place] [address] PCP - General 05/01/17 09/04/19 Jerry Rodriges MD PCP - General 10/29/13 7 documented as of this encounter
--- OUTSIDE RECORDS SUMMARY | 2024-10-30 06:54 | XMS_ITS | Encounter Summary ---
Author Organization [facility] Address [address] [place] [address]. [place], [place] [address] [place] [address] Care Team Providers Care Appeals And Generalist Clerk Name Role Phone Amilcar Osorio MD Primary Care Provider [phone] Md Generic Conversion Primary Care Provider Unavailable [...] Care Team (Late st Contact Info) Description 02/04/2013 Abstract [facility] Medical Group Multispecialty Care - [facility] [address] [facility], [address] [place] [phone] Rusty Mcfarlane DO [address] [place] [address] Social History Tobacco Use Types Packs/Day Years Used Date Smoking Tobacco: Never Assessed Sex and Gender Information Value Date Recorded Sex Assigned at Not on file Legal Sex Male 11:29 PM CDT Gender Identity Not on file Sexual Orientation Not on file documented as of this encounter Progress Notes * DO Aaliyah Dahl 02/04/2013 3:45 PM CDT Vitals Signs [Data Includes: Last 1 Day] 04Feb2013 04:16PM Temperature: 98.1 F Pain Scale: 2 Post-Op Post-Op Arthroscopic Knee: Josafat Calvo is seen in the [facility] on February 04, 2013. He is a 52-year-old black male status post right total knee arthroplasty. Date of surgery 01/21/2013. He is two weeks out. He rates his pain 2/10. It can increase to 8/10. PHYSICAL EXAMINATION: Examination shows a pleasant 52-year-old black male in no acute distress. Pain rated 2/10. Temperature 98.1. Surgical incision is healed nicely. Stables are removed. Steri-Strips are applied. Range of motion lacks the last few degrees of full extension. Flexion greater than 90degrees. I reviewed his home physical therapy notes provided by [facility]. They recorded his range of motion -8 actively and - 5 passively to 95 degrees supine and 98 degrees sitting with regards to flexion. Quad strength rated 3-/5. He is able to ambulate 150 feet using a wheeled walker. RADIOGRAPHS: Radiographs taken in the recovery room were reviewed with the patient. We compared hispreoperative films to postoperative films, which showed improved alignment of his varus right knee,which was something that he was very desirous of. IMPRESSION: Status post right total knee arthroplasty. Date of surgery 01/21/2013. PLAN: The patient [facility] [address] [facility]. Dispense #60, 1 every six hours. He says he is taking two to three per day now. He will continue with home health. I will see him back in the office in two weeks time for recheck examination. I will insure at his follow-up visit that he receives a prescription for dental prophylaxis as well as an implant card. HPI: PE: Assessment: Plan: Post-Op Open Knee: Josafat Calvo is status post total knee arthroplasty of the right knee on 01/21/2013. 2 weeks, he hassome burning and throbbing, he has been taking some vicodin. HPI: PE: Assessment: Plan: Done this visit: remove sutures/heaven and steristrip wound. Orders 1. Call if: The pain is not better in 2 days. Requested for: 04Feb2013 Assessment 1. Joint Pain, Localized In The Knee Right 719.46 2. Localized Primary Osteoarthritis Of The Right Knee 715.16 Signatures Electronically signed by : Rusty Mcfarlane D.O.; Feb 08 2013 7:48AM (Author) FLEXER documented in this encounter Plan of Treatment Not on file documented as of this encounter Visit Diagnoses Not on filedocumented in this encounter Care Teams Appeals And Generalist Clerk Relationship Specialty Start Date End Date Amilcar Osorio MD [address] [place] [address] PCP - General 05/01/17 09/04/19 Md, Generic Conversion, MD PCP - General 10/29/13 7 Md, Generic Conversion, MD PCP - General 09/09/1310/28 Md, Generic Conversion, MD PCP - General 05/20/1309/08 , Generic Conversion, PCP - General 03/28/13 Md, Generic Conversion, [...]
--- OUTSIDE RECORDS SUMMARY | 2024-10-30 06:54 | XMS_ITS | Encounter Summary ---
Author Organization [facility] Address [address] [place] [address]. [place] [address] [place] [address] Care Team Providers Care Tray Line Supervisor Name Role Phone Amilcar Osorio MD Primary Care Provider [phone] , Generic Roselyn WALTERS Primary Care Provider Unavailable Encounter Details Date Type Department Care Team (Latest Contact Info) Description 11/20/2013 Abstract [facility] Medical Group Harish Pitt MD [address] [facility] [address] [place] [id number] Social History Tobacco Use Types Packs/Day Years [...] Associated Diagnosis Comments PROSTATE SPECIFIC ANTIGEN,TOTAL Routine 11/20/2013 3:03 PM BOOM TENDER documented in this encounter Results * PROSTATE SPECIFIC ANTIGEN,TOTAL (11/20/2013 3:03 PM BOOM TENDER) PSA 0.5 0.0 - 4.0 ng/mL [facility] TO EPIC CONVERSION Comment: Result Comment: Sukhjinder ECLIA methodology. ? . According to the [employer], Serum PSA should decrease and remain at undetectable levels after radical prostatectomy. The AUA defines biochemical recurrence as an initial PSA value 0.2 ng/mL or greater followed by a subsequent confirmatory PSA value 0.2 ng/mL or greater. Values obtained with different assay methods or kits cannot be used interchangeably. Results cannot be interpreted as absolute evidence of the presence or absence of malignant disease. 11/20/2013 3:03 PM BOOM TENDER 11/20/2013 3:03 PM BOOM TENDER Narrative [facility] TO EPIC CONVERSION - 11/20/2013 5:39 PM BOOM TENDER Result Communication: No patient communication needed at this time us Harish Pitt MD LABORATORY F inal Result [facility] TO EPIC CONVERSION documented in this encounter Visit Diagnoses Not on filedocumented in this encounter Care Teams Tray Line Supervisor Relationship Specialty Start Date End Date Amilcar Osorio MD [address] [place] [address] PCP - General 05/01/17 09/04/19 , Generic Conversion, PCP - General 10/29/13 7 documented as of this encounter
--- OUTSIDE RECORDS SUMMARY | 2024-10-30 06:54 | XMS_ITS | Encounter Summary ---
Author Organization [facility] Address [address] [place] [address]. [place], [place] [address] [place] [address] Care Team Providers Care Piping Manager Name Role Phone Amilcar Osorio MD Primary Care Provider [phone] Encounter Details Date Type Department Care Team (Latest Contact Info) Description 11/22/2017 Abstract [facility] Medical Group Social History Tobacco Use Types Packs/Day Years Used Date Smoking Tobacco: Never Assessed Sex and Gender Information Value Date Recorded Sex Assigned at Not on file Legal Sex Male 11:29 PM CDT Gender Identity Not on file Sexual Orientation Not on file documented as of this encounter Progress Notes * Jerry Dempsey Md, MD - 11/22/2017 2:15 PM CST Message Received notice of denial for pt's viagra 100 mg #6. Pt was notified. Pt verbalized understanding. Signatures Electronically signed by : Judy Villareal, ; Nov 22 2017 2:18PM HIGHWAY CONSTRUCTION INSPECTOR (Author) documented in this encounter Plan of Treatment Not on file documented as of this encounter Visit Diagnoses Not on filedocumented in this encounter Care Teams Piping Manager Relationship Specialty Start Date End Date Amilcar Osorio MD [address], [address] [place] [address] PCP - General 05/01/17 09/04/19 documented as of this encounter
--- OUTSIDE RECORDS SUMMARY | 2024-10-30 06:54 | XMS_ITS | Encounter Summary ---
Author Organization [facility] Address [address] [place] [address]. [place], [place] [address] [place] [address] Care Team Providers Care Solution Specialist Name Role Phone Amilcar Osorio MD Primary Care Provider [phone] Encounter Details Date Type Department Care Team (Latest Contact Info) Description 11/01/2017 Abstract [facility] Medical Group Social History Tobacco Use Types Packs/Day Years Used Date Smoking Tobacco: Never Assessed Sex and Gender Information Value Date Recorded Sex Assigned at Not on file Legal Sex Male 11:29 PM CDT Gender Identity Not on file Sexual Orientation Not on file documented as of this encounter Progress Notes * Generic Conversion MD Antelmo - 11/01/2017 9:18 AM CST Message Recorded as Task Date: 10/31/2017 09:33 AM, Created By: Tracey Avina Task Name: Follow Up Assigned To: -Nurse Team Regarding Patient: Josafat Calvo, Status: Active Comment: Tracey Avina - 31 Oct 2017 9:33 AM TASK CREATED Caller: Self; General Medical Question; ; Dr Osorio ordered US of testicle due to finding a mass, will have done next Monday at [facility] [phone] Shari Bolden - 01 Nov 2017 9:18 AM TASK EDITED confirmed with pt --has order and date already set up Signatures Electronically signed by : Shari Bolden L.P.N.; Nov 01 2017 9:18AM SALES REPRESENTATIVE HEALTH INSURANCE (Author) documented in this encounter Plan of Treatment Not on file documented as of this encounter Visit Diagnoses Not on filedocumented in this encounter Care Teams Solution Specialist Relationship Specialty Start Date End Date Amilcar Osorio MD [address] [place] [address] PCP - General 05/01/17 09/04/19 documented as of this encounter
--- OUTSIDE RECORDS SUMMARY | 2024-10-30 06:54 | XMS_ITS | Encounter Summary ---
Author Organization [facility] Address [address] [place] [address]. [place], [place] [address] [place] [address] Care Team Providers Care Motorcycle Tester Name Role Phone Amilcar Osorio MD Primary Care Provider [phone] Encounter Details Date Type Department Care Team (Latest Contact Info) Description 11/16/2017 Abstract [facility] Medical Group Gina Fleming APNP [address] [place] [address] Social History Tobacco Use Types Packs/Day Years [...] Procedure Name Priority Date/Time Associated Diagnosis Comments HCG QUANT (SERUM)-CHORIONIC GONADOTROPIN Routine 11/16/2017 11:19 AM LIQUOR BRIDGE OPERATOR HELPER ALPHA-FETOPROTEIN, SERUM Routine 11/16/2017 11:19 AM LIQUOR BRIDGE OPERATOR HELPER documented in this encounter Results * ALPHA-FETOPROTEIN, SERUM (11/16/2017 11:19 AM LIQUOR BRIDGE OPERATOR HELPER) AFP SERUM 1.7 0.5 - 8.0 NG/ML [facility] TO EPIC CONVERSION Comment: Result Comment: Test was performed using the Siemens method. ??Results obtained with other assay methods or kits cannot be used interchangeably with results obtained by the Siemens method. 11/16/2017 11:1 9 AM LIQUOR BRIDGE OPERATOR HELPER 11/16/2017 11:19 AM LIQUOR BRIDGE OPERATOR HELPER Narrative [facility] TO EPIC CONVERSION - 11/16/2017 12:53 PM LIQUOR BRIDGE OPERATOR HELPER Result Communication: No patient communication needed at this time Gina Fleming [facility] Final Result [facility] TO EPIC CONVERSION * BHCG QUANT (SERUM)-CHORIONIC GONADOTROPIN (11/16/2017 11:19 AM LIQUOR BRIDGE OPERATOR HELPER) HCG QUANTITATIVE <1 ?? WEEKS OF ? REFERENCE RANGES ?? non- female ? < or = 2 [...] - ??51,793 ?18 ? 9,649 - ??55,271 MIU/ML [facility] TO EPIC CONVERSION 11/16/2017 11:1 9 AM LIQUOR BRIDGE OPERATOR HELPER 11/16/2017 11:19 AM LIQUOR BRIDGE OPERATOR HELPER Narrative [facility] TO EPIC CONVERSION - 11/16/2017 12:53 PM LIQUOR BRIDGE OPERATOR HELPER Result Communication: No patient communication needed at this time us Gina Fleming APNP LABORATORY Final Result Performing Organization Address City/State/[facility] Co de Phone Number [facility] TO EPIC CONVERSION documented in this encounter Visit Diagnoses Not on filedocumented in this encounter Care Teams Motorcycle Tester Relationship Specialty Start Date End Date Amilcar Osorio MD [address] [place] [address] PCP - General 05/01/17 09/04/19 documented as of this encounter
--- OUTSIDE RECORDS SUMMARY | 2024-10-30 06:54 | XMS_ITS | Encounter Summary ---
Author Organization [facility] Address [facility] [facility]. [place], [place] [address] [place] [address] Care Team Providers Care Family Consumer Scientist Name Role Phone Amilcar Osorio MD Primary Care Provider [phone] Jerry Rodriges MD Primary Care Provider Unavailable Encounter Details Date Type Department Care Team (Latest Contact Info) Description 03/07/2016 Abstract [facility] Harish Pitt MD [address] [facility] [address] [place] [address] Social History Tobacco Use Types [...] on filedocumented in this encounter Care Teams Family Consumer Scientist Relationship Specialty Start Date End Date Amilcar Osorio MD [address] [facility], [address] [place] [address] PCP - General 05/01/17 09/04/19 Jerry Rodriges MD PCP - General 10/29/13 7 documented as of this encounter
--- OUTSIDE RECORDS SUMMARY | 2024-10-30 06:54 | XMS_ITS | Encounter Summary ---
Author Organization [facility] Address [address] [place] [address]. [place], [place] [address] [place] [address] Care Team Providers Care Stave Cutting Supervisor Name Role Phone Amilcar Osorio MD Primary Care Provider [phone] , Generic Roselyn WALTERS Primary Care Provider Unavailable Encounter Details Date Type Department Care Team (Latest Contact Info) Description 03/07/2016 Abstract [facility] Medical Group Harish Pitt MD [address] [place] [id number] Social History Tobacco Use Types Packs/Day Years [...] Associated Diagnosis Comments PROSTATE SPECIFIC ANTIGEN,TOTAL Routine 03/07/2016 11:54 AM CDT documented in this encounter Results * PROSTATE SPECIFIC ANTIGEN,TOTAL (03/07/2016 11:54 AM CDT) PSA 1.0 0.0 - 4.0 ng/mL [facility] TO EPIC CONVERSION Comment: Result Comment: Sukhjinder ECLIA methodology. ? . According to the [employer], Serum PSA should decrease and [...] the presence or absence of malignant disease. 03/07/2016 11:5 4 AM CDT 03/07/2016 11:54 AM CDT Narrative [facility] TO EPIC CONVERSION - 03/22/2016 10:35 AM CDT Result Communication: No patient communication needed at this time us Harish Pitt MD LABORATORY F inal Result Performing Organization Address City/State/[facility] Co de Phone Number [facility] TO EPIC CONVERSION documented in this encounter Visit Diagnoses Not on filedocumented in this encounter Care Teams Stave Cutting Supervisor Relationship Specialty Start Date End Date Amilcar Osorio MD [address] [place] [address] PCP - General 05/01/17 09/04/19 , Generic Conversion, PCP - General 10/29/13 7 documented as of this encounter
--- OUTSIDE RECORDS SUMMARY | 2024-10-30 06:54 | XMS_ITS | Encounter Summary ---
Author Organization [facility] Address [address] [place] [address]. [place], [place] [address] [place] [address] Care Team Providers Care Patient Portal Representative Name Role Phone Amilcar Osorio MD Primary Care Provider [phone] Jerry Rodriges MD Primary Care Provider Unavailable Encounter Details Date Type Department Care Team (Late st Contact Info) Description 11/21/2013 Abstract [facility] Medical Group Multispecialty Care - [facility] [address] [facility] [place] [phone] Harish Pitt MD [address] [address] Social History Tobacco Use Types Packs/Day Years Used Date Smoking Tobacco: Never Assessed Sex and Gender Information Value Date Recorded Sex Assigned at Not on file Legal Sex Male 11:29 PM CDT Gender Identity Not on file Sexual Orientation Not on file documented as of this encounter Last Filed Vital Signs Vital Sign Reading Time Taken Comments Blood Pressure 130/84 11/21/2013 9:01 AM MINE ANALYST Pulse - - Temperature - - Respiratory Rate - - Oxygen Saturation - - Inhaled Oxygen Concentration - - Weight 120.2 kg (265 lb) 11/21/2013 9:01 AM MINE ANALYST Height 175.3 cm (5' 9 ) 11/21/2013 9:01 AM MINE ANALYST Body Mass Index 39.13 11/21/2013 9:01 AM MINE ANALYST documented in this encounter Progress Notes * Harish Pitt MD - 11/21/2013 8:30 AM CST History of Present Illness 53-year-old male underwent prostate biopsy 2 years ago for an elevated PSA of 7.6 and whose biopsy came back showing no cancer, comes in for his yearly followup visit. He states that he is doing well. He urinates every 2 hours during the day and awakes at night one time. Denies any obstructive symptoms other than for mild terminal dribbling. no irritative voiding symptoms. He does complain of difficulties obtaining and maintaining his erections. Denies any systemic complaints. Since his last visit with me he underwent right knee replacement in February of 2013 and is doing well from this. Active Problems 1. Joint Pain, Localized In [...] ?? Tobacco Use 305.1 Current Meds 1. Aspirin 81 MG Oral Tablet; Therapy: (Recorded:21Nov2013) to Recorded; Dispense: 0 Days ; #: Sufficient TABS; Refill: 0; Record; Last Updated By: Gemma Acosta 2. HydrOXYzine Pamoate 50 MG Oral Capsule; TK ONE C PO TID; Therapy: 01Feb2012 to Recorded; Dispense: 30 Days ; #:90 CAPS; Refill: 0; Record; Last Updated By: Adelaida Guzman 3. Ibuprofen 600 MG Oral Tablet; TK 1 T PO PO TID PRN WITH FOOD; Therapy: 26Jun2012 to Recorded; Dispense: 20 Days ; #:60 TABS; Refill: 0; Record; Last Updated By: Adelaida Guzman 4. Metoprolol Succinate ER 100 MG Oral Tablet Extended Release 24 Hour; TK ONE T PO D; Therapy: 27Mar2012 to Recorded; Dispense: 90 Days ; #:90 TB24; Refill: 0; Record; Last Updated By: Adelaida Guzman 5. TraZODone HCl 100 MG Oral Tablet; TK 1 T PO QHS; Therapy: 01Feb2012 to Recorded; Dispense: 30 Days ; #:30 TABS; Refill: 0; Record; Last Updated By: Adelaida Guzman 6. Vistaril 25 MG Oral Capsule; Therapy: (Recorded:21Nov2013) to Recorded; Dispense: 0 Days ; #: Sufficient CAPS; Refill: 0; Record; Last Updated By: Gemma Acosta 7. Xarelto 10 MG Oral Tablet; TK 1 T PO QD; Therapy: 24Jan2013 to Recorded; Dispense: 14 Days ; #:14 TABS; Refill: 0; Record; Last Updated By: Vee Ernst 1. Penicillins Vitals Vital Signs [Data Includes: Current Encounter] 21Nov2013 09:01AM Temperature 97.7 F Systolic 130 Diastolic 84 BMI Calculated 39.25 BSA Calculated 2.33 Height 5 ft 9 in Weight 265 lb Physical Exam Abdomen: normal bowel sounds, soft, non-tender, no hepato-splenomegaly and no abdominal mass palpated. Genitourinary: the meatus of the urethra showed no abnormalities, the penis was normal, the scrotumwas normal, the seminal vesicles were normal, the epididymides were normal, no tenderness of the testes, there were no testicular masses and the prostate was not tender . The anus and perineum were normal. Digital rectal exam was normal. (prostate is approximately 30 cc in volume is benign feeling). Results/Data Encounter Results *Urine Dip Siemens Machine Read Strip In Office 21Nov2013 09:02AM Harish Pitt Test Name Result Flag Reference Specific [place] 1.002 1.02 - 1.03 Leukocyte Esterase Negative Nitrite Negative pH 5.0 5.0 - 7.0 Proteinp Negative Glucose Negative Ketones Negative Blood Negative Bilirubin Negative Urobilinogen Negative PSA is 0.5 Assessment BPH Erectile dysfunction Plan Patient was given a starter pack of Viagra 50 mg to try and will let me know by telephone what his response was. He will return in one year for reassessment. Signatures Electronically signed by : Harish Pitt M.D.; Nov 21 2013 1:09PM (Author) ANALYST documented in this encounter Plan of Treatment Not on file documented as of this encounter Procedures Procedure Name Priority Date/Time Associated Diagnosis Comments URINALYSIS AUTO DIP Routine 11/21/2013 9 :02 AM MINE ANALYST documented in this encounter Results * URINALYSIS AUTO DIP (11/21/2013 9:02 AM MINE ANALYST) SPECIFIC GRAVITY (U) 1.002 1.02 - 1.03 [facility] TO EPIC CONVERSION LEUKOCYTES (U) Negative [facility] OUP TO EPIC CONVERSION NITRITES Negative [facility] T O EPIC CONVERSION PH (U) 5.0 5.0 - 7.0 [facility] T O EPIC CONVERSION PROTEIN (ELP) (U) Negative [facility] TO EPIC CONVERSION GLUCOSE Negative [facility] T O EPIC CONVERSION KETONE (U) Negative [facility] TO EPIC CONVERSION BLOOD (U) Negative [facility] T O EPIC CONVERSION BILIRUBIN (U) Negative [facility] UP TO EPIC CONVERSION UROBILINOGEN Negative [facility] P TO EPIC CONVERSION 11/21/2013 9:02 AM MINE ANALYST 11/21/2013 9:02 AM MINE ANALYST Harish Pitt MD URINE ORDERABLES Final Result [facility] TO EPIC CONVERSION documented in this encounter Visit Diagnoses Not on filedocumented in this encounter Care Teams Patient Portal Representative Relationship Specialty Start Date End Date Amilcar Osorio MD [address] [place] [address] PCP - General 05/01/17 09/04/19 , Generic Conversion, PCP - General 10/29/13 7 documented as of this encounter
--- OUTSIDE RECORDS SUMMARY | 2024-10-30 06:54 | XMS_ITS | Encounter Summary ---
Author Organization [facility] Address [address] [place] [address]. [place], [place] [address] [place] [address] Care Team Providers Care Furniture Refinisher Name Role Phone Amilcar Osorio MD Primary Care Provider [phone] Jerry Rodriges MD Primary Care Provider Unavailable Encounter Details Date Type Department Care Team (Latest Contact Info) Description 04/10/2015 Abstract [facility] Medical Group Social History Tobacco Use Types Packs/Day Years Used Date Smoking Tobacco: Never Assessed Sex and Gender Information Value Date Recorded Sex Assigned at Not on file Legal Sex Male 11:29 PM CDT Gender Identity Not on file Sexual Orientation Not on file documented as of this encounter Progress Notes * Jerry Dempsey Md, MD - 04/10/2015 10:46 AM CDT Message Message: Patient called he is going over to Bar Plan 1. Viagra 50 MG Oral Tablet; TAKE 1 TABLET DAILY 1 HOUR BEFORE NEEDED Signatures Electronically signed by : Shari Nichols, ; Apr 10 2015 11:18AM SILK SPOTTER (Author) documented in this encounter Plan of Treatment Not on file documented as of this encounter Visit Diagnoses Not on filedocumented in this encounter Care Teams Furniture Refinisher Relationship Specialty Start Date End Date Amilcar Osorio MD [address] [facility], [facility] [address] [place] [address] PCP - General 05/01/17 09/04/19 , Generic Conversion, PCP - General 10/29/13 7 documented as of this encounter
--- OUTSIDE RECORDS SUMMARY | 2024-10-30 06:54 | XMS_ITS | Encounter Summary ---
Author Organization [facility] Address [address] [place] [address]. [place] [address] [place] [address] Care Team Providers Care Microstrategy Architect Name Role Phone Amilcar Osorio MD Primary Care Provider [phone] Md Generic Conversion Primary Care Provider Unavailable [...] Md Generic Conversion Primary Care Provider Unavailable Md, Generic Conversion Primary Care Provider Unavailable , Generic Conversion Primary Care Provider Unavailable Zainab Flower MD Primary Care Provider [phone] Md Generic Conversion Primary Care Provider Unavailable Encounter Details Date Type Department Care Team (Late st Contact Info) Description 11/23/[address] [facility] Medical Group Multispecialty Care - [facility] [address] [facility] [place] [address] Harish Pitt MD [address] [facility] [address] [place] [address] Social History Tobacco Use Types Packs/Day Years Used Date Smoking Tobacco: Never Assessed Sex and Gender Information Value Date Recorded Sex Assigned at Not on file Legal Sex Male 11:29 PM CDT Gender Identity Not on file Sexual Orientation Not on file documented as of this encounter Last Filed Vital Signs Vital Sign Reading Time Taken Comments Blood Pressure 160/90 11/23/2012 8:47 AM COMMERCIAL KITCHEN SERVICE TECHNICIAN Pulse - - Temperature - - Respiratory Rate - - Oxygen Saturation - - Inhaled Oxygen Concentration - - Weight 117 kg (258 lb) 11/23/2012 8:47 AM COMMERCIAL KITCHEN SERVICE TECHNICIAN Height 175.3 cm (5' 9 ) 11/23/2012 8:47 AM COMMERCIAL KITCHEN SERVICE TECHNICIAN Body Mass Index 38.1 11/23/2012 8:47 AM COMMERCIAL KITCHEN SERVICE TECHNICIAN documented in this encounter Progress Notes * Harish Pitt MD - 11/23/2012 8:30 AM CST Reason For Visit Reason For Visit: Chronic Recheck Visit Chief Complaint Followup elevated PSA History of Present Illness 52-year-old male who presented one year ago with an elevated PSA of 7.6 and who had a biopsy that came back showing no evidence of carcinoma returns for his yearly followup check. He states that he is doing well and he denies having any voiding problems. He urinates 8-10 times during the day and 1-2 times at night. He denies any obstructive or irritative voiding symptoms. No urgency, dysuria, incontinence or hematuria. No UTIs. No systemic complaints or changes in his general health. Review of Systems Complete-Male: Cardiovascular: negative. Respiratory: negative. Gastrointestinal: negative. Active Problems 1. Serology Prostate-specific Antigen (PSA) Elevated 790.93 Past Medical History 1. History of Hypertension 401.9 Family History 1. Family history of Cancer 2. Family history of Diabetes Mellitus V18.0 3. Family history of Heart Disease V17.49 4. Family history of Reported Family History Of Heart Disease Social History ?? Current Every Day Smoker 305.1 ?? Stopped Drinking Alcohol Current Meds 1. Diovan 160 MG Oral Tablet; Therapy: (Recorded:[id number]) to Recorded; Dispense: 0 Days ; #: Sufficient TABS; Refill: 0; Record; Last Updated By: Shari Nichols 2. Remeron 30 MG Oral Tablet; Therapy: (Recorded:[id number]) to Recorded; Dispense: 0 Days ; #: Sufficient TABS; Refill: 0; Record; Last Updated By: Shari Nichols 3. RisperDAL TABS; Therapy: (Recorded:[id number]) to Recorded; Dispense: 0 Days ; #: Sufficient TABS; Refill: 0; Record; Last Updated By: Shari Nichols Allergies 1. Penicillins Vitals Vital Signs [Data Includes: Current Encounter] 23Nov2012 08:47AM Temperature 97.3 F Systolic 160 Diastolic 90 BMI Calculated 38.21 BSA Calculated 2.3 Height 5 ft 9 in Weight 258 lb Physical Exam Chest: the chest was normal in appearance, no chest asymmetry and normal chest expansion. Heart: the apical impulse was normal, heart rate and rhythm were normal, normal S1 and S2, no gallops, no murmurs and no pericardial rub. Abdomen: normal bowel sounds, soft, non-tender, no hepato-splenomegaly and no abdominal mass palpated. Genitourinary: the meatus of the urethra showed no abnormalities, the penis was normal, the scrotumwas normal, the seminal vesicles were normal, the epididymides were normal, no tenderness of the testes, there were no testicular masses, the prostate was not enlarged and the prostate was not tender. The anus and perineum were normal. Digital rectal exam was normal. (prostate is approximately 35 cc in volume and benign feeling). Results/Data Encounter Results *Urine Dip Siemens Machine Read Strip In Office 23Nov2012 08:53AM Kevin Pitt Test Name Result Flag Reference Specific [place] 1.010 Leukocyte Esterase Negative Nitrite Negative pH 5 Proteinp Negative Glucose Negative Ketones Negative Blood Negative Bilirubin Negative Urobilinogen Negative PSA done on November 13 was 1.0 Assessment BPH mild with now normal PSA Plan Followup in one year or earlier if he has any problems. Signatures Electronically signed by : Kevin Pitt M.D.; Nov 23 2012 9:06AM (Author) ERCIAL KITCHEN SERVICE TECHNICIAN documented in this encounter Plan of Treatment Not on file documented as of this encounter Procedures Procedure Name Priority Date/Time Associated Diagnosis Comments URINALYSIS AUTO DIP Routine 11/23/2012 8 :53 AM COMMERCIAL KITCHEN SERVICE TECHNICIAN documented in this encounter Results * URINALYSIS AUTO DIP (11/23/2012 8:53 AM COMMERCIAL KITCHEN SERVICE TECHNICIAN) SPECIFIC GRAVITY (U) 1.010 [facility] TO EPIC CONVERSION LEUKOCYTES (U) Negative [facility] OUP TO EPIC CONVERSION NITRITES Negative [facility] T O EPIC CONVERSION PH (U) 5 [facility] T O EPIC CONVERSION PROTEIN (ELP) (U) Negative [facility] TO EPIC CONVERSION GLUCOSE Negative [facility] T O EPIC CONVERSION KETONE (U) Negative [facility] TO EPIC CONVERSION BLOOD (U) Negative [facility] T O EPIC CONVERSION BILIRUBIN (U) Negative [facility]O UP TO EPIC CONVERSION UROBILINOGEN Negative [facility]OU P TO EPIC CONVERSION 11/23/2012 8:53 AM COMMERCIAL KITCHEN SERVICE TECHNICIAN 11/23/2012 8:53 AM COMMERCIAL KITCHEN SERVICE TECHNICIAN Narrative [facility] TO EPIC CONVERSION - 11/23/2012 8:52 AM COMMERCIAL KITCHEN SERVICE TECHNICIAN Result Communication: No patient communication needed at this time us Harish Pitt MD URINE ORDERABLES Final Result Performing Organization Address City/State/[facility] Co de Phone Number [facility] TO EPIC CONVERSION documented in this encounter Visit Diagnoses Not on filedocumented in this encounter Care Teams Microstrategy Architect Relationship Specialty Start Date End Date Amilcar Osorio MD [address] [place] [address] PCP - General 05/01/17 09/04/19 Md Generic Conversion, PCP - General 10/29/13 7 Md Generic Conversion, PCP - General 09/09/1310/28 Md Generic Conversion, PCP - General 05/20/1309/08 Md Generic Conversion, PCP - General 03/28/13 Md Generic Conversion, PCP - General 03/27/13 Md Generic Conversion, PCP - General 03/19/13 Md Generic Conversion, PCP - General 03/14/13 Md Generic Conversion, PCP - General 03/01/13 Md Generic Conversion, PCP - General 02/21/13 3 , Generic Conversion, PCP - General 01/21/13 , Generic Conversion, MD PCP - General 01/17/13 , Generic Conversion, PCP - General 12/14/12 , Generic Conversion, PCP - General 12/10/12 Zainab Flower MD [address] [place] [address] PCP - General 12/04/12 12/09/12 , Generic Conversion, PCP - General 01/07/11 3 documented as of this encounter
--- OUTSIDE RECORDS SUMMARY | 2024-10-30 06:54 | XMS_ITS | Encounter Summary ---
Author Organization [facility] Address [address] [place] [address]. [place], [place] [address] [place] [address] Care Team Providers Care Move Coordinator Name Role Phone Amilcar Osorio MD Primary Care Provider [phone] Encounter Details Date Type Department Care Team (Latest Contact Info) Description 11/20/2017 Abstract [facility] Social History Tobacco Use Types Packs/Day Years Used Date Smoking Tobacco: Never Assessed Sex and Gender Information Value Date Recorded Sex Assigned at Not on file Legal Sex Male 11:29 PM CDT Gender Identity Not on file Sexual Orientation Not on file documented as of this encounter Progress Notes * Generic Conversion MD Antelmo - 11/20/2017 8:35 AM CST Message Recorded as Task Date: 11/17/2017 03:20 PM, Created By: Shari Armijo Task Name: Call Back Assigned To: -Nurse Team Regarding Patient: Josafat Calvo, Status: Active Comment: Shari Armijo - 17 Nov 2017 3:20 PM TASK CREATED Patient calling to see if the office received his insurance papers to approved the Viagra. If so, has the prescription been faxed or called to [facility] in [place] [address] [place]. Call patientwhen this has been completed call back number [phone]. Judy Villareal - 20 Nov 2017 8:42 AM TASK EDITED RX for Viagra sent to [facility] on 11/16/17. Prior auth sent to [facility] on 11/17/17. Pt notified. Ptverbalized understanding. Signatures Electronically signed by : Judy Villareal, ; Nov 20 2017 8:42AM STATISTICS TUTOR (Author) documented in this encounter Plan of Treatment Not on file documented as of this encounter Visit Diagnoses Not on filedocumented in this encounter Care Teams Move Coordinator Relationship Specialty Start Date End Date Amilcar Osorio MD [address] [place] [address] PCP - General 05/01/17 09/04/19 documented as of this encounter
--- OUTSIDE RECORDS SUMMARY | 2024-10-30 06:54 | XMS_ITS | Encounter Summary ---
Author Organization [facility] Address [address] [place] [address]. [place], [place] [address] [place] [address] Care Team Providers Care Pharmacy Intern Name Role Phone Amilcar Osorio MD Primary Care Provider [phone] Jerry Rodriges MD Primary Care Provider Unavailable Encounter Details Date Type Department Care Team ([facility] st Contact Info) Description 10/29/2013 Emergency [facility] Emergency Room [place], [place] [id number] Morgan Syed MD [address] [place] [address] [address] Social History Tobacco Use Types Packs/Day Years Used Date Smoking Tobacco: Never Assessed Sex and Gender Information Value Date Recorded Sex Assigned at Not on file Legal Sex Male 11:29 PM CDT Gender Identity Not on file Sexual Orientation Not on file documented as of this encounter Plan of Treatment Not on file documented as of this encounter Visit Diagnoses Diagnosis Bronchitis Bronchitis, not specified as acute or chronic documented in this encounter Care Teams Pharmacy Intern Relationship Specialty Start Date End Date Amilcar Osorio MD [address] [facility] [address] [place] [address] PCP - General 05/01/17 09/04/19 Jerry Rodriges MD PCP - General 10/29/13 7 documented as of this encounter
--- OUTSIDE RECORDS SUMMARY | 2024-10-30 06:54 | XMS_ITS | Encounter Summary ---
Author Organization [facility] Address [address] [place] [address]. [place] [address] [place] [address] Care Team Providers Care Fire Tower Keeper Name Role Phone Amilcar Osorio MD Primary Care Provider [phone] Md Generic Conversion Primary Care Provider Unavailable [...] Zainab Flower MD Primary Care Provider [phone] Md Generic Conversion Primary Care Provider Unavailable Encounter Details Date Type Department Care Team (Late st Contact Info) Description 11/13/2012 Abstract [facility] Multispecialty Care - [facility] [address] [facility] [address] [place] [address] Harish Pitt MD [address] [facility] [address] [place] [address] Social History Tobacco Use Types Packs/Day Years [...] on filedocumented in this encounter Care Teams Fire Tower Keeper Relationship Specialty Start Date End Date Amilcar Osorio MD [address] [place] [address] PCP - General 05/01/17 09/04/19 Md, Generic [...] - General 12/10/12 Zainab Flower MD [address] [place] [address] PCP - General 12/04/12 12/09/12 , Generic Conversion, PCP - General 01/07/11 3 documented as of this encounter
--- OUTSIDE RECORDS SUMMARY | 2024-10-30 06:54 | XMS_ITS | Encounter Summary ---
Author Organization [facility] Address [address] [place] [address]. [place], [place] [address] [place] [address] Care Team Providers Care Web Content Developer Name Role Phone Amilcar Osorio MD Primary Care Provider [phone] Jerry Rodriges MD Primary Care Provider Unavailable Encounter Details Date Type Department Care Team (Late st Contact Info) Description 05/03/2016 Abstract [facility] Multispecialty Care - [facility] [address] [facility], [address] [place] [address] Harish Pitt MD [address] [address] Social History Tobacco Use Types Packs/Day Years Used Date Smoking Tobacco: Never Assessed Sex and Gender Information Value Date Recorded Sex Assigned at Not on file Legal Sex Male 11:29 PM CDT Gender Identity Not on file Sexual Orientation Not on file documented as of this encounter Last Filed Vital Signs Vital Sign Reading Time Taken Comments Blood Pressure 130/80 05/03/2016 9:38 AM CDT Pulse - - Temperature - - Respiratory Rate - - Oxygen Saturation - - Inhaled Oxygen Concentration - - Weight - - Height - - Body Mass Index - - documented in this encounter Progress Notes * Harish Pitt MD - 05/03/2016 9:45 AM CDT History of Present Illness 55-year-old male with a history of a PSA that was 7.6 and for this reason he had a prostate biopsy 4 years ago that showed no cancer, returns for his yearly followup visit. He states that he has beenwell and that his urination is remaining stable. He urinates 4-5 times in the day and 2 times at night. This is his stable and chronic pattern.He denies any obstructive or irritative voiding symptoms. No urgency or incontinence. No dysuria or hematuria. No UTIs. Continues to have problems with hiserections. No changes in his general health. Active Problems 1. Elevated prostate specific antigen (PSA) (790.93) (R97.2) 2. Knee pain, unspecified laterality 3. 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 Primary osteoarthritis of right knee (715.16) (M17.11) Past Medical History 1. History of Anxiety (300.00) (F41.9) 2. History of depression (V11.8) (Z86.59) 3. History of hypertension (V12.59) (Z86.79) 4. History of obesity (V13.89) (Z86.39) 5. History of Pulmonary Embolism (V12.55) [...] ?? Never Used Drugs ?? Smoker (305.1) (Z72.0) ?? Stopped Drinking Alcohol Current Meds 1. Ibuprofen 600 MG Oral Tablet; TK 1 T PO PO TID PRN WITH FOOD; Therapy: [id number] to Recorded Dispense: 20 Days ; #:60 TABS; Refill: 0; MARK = N; Record; Last Updated By: Adelaida Guzman; 11/23/2012 8:57:38 AM 2. Viagra 50 MG Oral Tablet; TAKE 1 TABLET DAILY 1 HOUR BEFORE NEEDED; Therapy: 10Apr2015 to (Evaluate:14Apr2015); Last Rx:10Apr2015 Ordered Rx By: Harish Pitt; Dispense: 4 Days ; #:4 Tablet; Refill: 0; For: Elevated prostate specific antigen (PSA); MARK = N; Dispense Sample; Last Updated By: Shari Nichols; 04/10/2015 10:46:45 AM Allergies 1. Lisinopril TABS Recorded By: Argelia Bailey; 03/27/2015 10:02:27 AM 2. Penicillins Recorded By: Shari Nichols; 06/11/2012 12:14:24 PM Vitals Recorded: [id number] 09:38AM Temperature 97.7 F Systolic 130 Diastolic 80 Physical Exam Constitutional General appearance: No acute distress, well appearing and well nourished. Genitourinary Anus and perineum: Normal. Scrotum contents: Normal size, no masses. Epididymis: Normal, no masses. Testes: Normal testes, no masses. Urethral meatus: Normal, no lesions. Penis: Normal, no lesions. Digital rectal exam of prostate: Normal size, no masses. (prostate is approximately 30 cc in volumeand benign feeling) Digital rectal exam of seminal vesicles: Normal size, no masses. Anus, perineum, and rectum: Normal. Abdomen Abdomen: Non-tender, no masses. Liver and spleen: No hepatomegaly or splenomegaly. Examination for hernias: Normal. Lymphatic Palpation of lymph nodes in other areas: No lymphadenopathy. Psychiatric Orientation to person, place and time: Normal. Mood and affect: Normal. Results/Data *Urine Dip Siemens Machine Read Strip In Office [id number] 09:39AM Harish Pitt Test Name Result Flag Reference Appearance Clear Color Light Yellow Specific [place] 1.010 1.02 - 1.03 Leukocyte Esterase Negative Nitrite Negative pH 5 5.0 - 7.0 Protein Negative Glucose Negative Ketones Negative Blood Negative Bilirubin Negative Urobilinogen Negative PSA is 1. This is lower than his PSA of 1.7 last year. Assessment BPH with now normal PSA Plan Followup in 1 year. No PSA ordered for next year. Signatures Electronically signed by : Harish Pitt M.D.; May 03 2016 9:59AM RESTAURANT AREA MANAGER (Author) documented in this encounter Plan of Treatment Not on file documented as of this encounter Procedures Procedure Name Priority Date/Time Associated Diagnosis Comments URINALYSIS AUTO DIP Routine 05/03/2016 9 :39 AM CDT documented in this encounter Results * URINALYSIS AUTO DIP (05/03/2016 9:39 AM CDT) APPEARANCE SEMEN Clear MED GROUP TO EPIC CONVERSION COLOR (U) Light Yellow MED[facility]OU P TO EPIC CONVERSION SPECIFIC GRAVITY (U) 1.010 1.02 - 1.03 MEDGROUP TO EPIC CONVERSION [...] UROBILINOGEN Negative MED[facility]OU P TO EPIC CONVERSION 05/03/2016 9:39 AM CDT 05/03/2016 9:39 AM CDT Narrative MEDGROUP TO EPIC CONVERSION - 05/03/2016 9:39 AM CDT Result Communication: No patient communication needed at this time Harish Pitt MD URINE ORDERABLES Final Result [facility] TO EPIC CONVERSION documented in this encounter Visit Diagnoses Not on filedocumented in this encounter Care Teams Web Content Developer Relationship Specialty Start Date End Date Amilcar Osorio MD [address] [place] [address] PCP - General 05/01/17 09/04/19 , Generic Conversion, PCP - General 10/29/13 7 documented as of this encounter
--- OUTSIDE RECORDS SUMMARY | 2024-10-30 06:54 | XMS_ITS | Encounter Summary ---
Author Organization [facility] Address [address] [place] [address]. [place] [address] [place] [address] Care Team Providers Care Puff Iron Operator Name Role Phone Amilcar Osorio MD Primary Care Provider [phone] Md Generic Roselyn WALTERS Primary Care Provider Unavailable Md Generic Conversion Primary Care Provider Unavailable Md Generic Conversion Primary Care Provider Unavailable Md Generic Conversion Primary Care Provider Unavailable Encounter Details Date Type Department Care Team (Late st Contact Info) Description 03/28/2013 Abstract [facility] [address] [place] [address] Rusty Mcfarlane, [place] [id number] Social History Tobacco Use Types Packs/Day Years Used Date Smoking Tobacco: Never Assessed Sex and Gender Information Value Date Recorded Sex Assigned at Not on file Legal Sex Male 11:29 PM CDT Gender Identity Not on file Sexual Orientation Not on file documented as of this encounter Plan of Treatment Not on file documented as of this encounter Visit Diagnoses Diagnosis Knee joint replaced by other means documented in this encounter Care Teams Puff Iron Operator Relationship Specialty Start Date End Date Amilcar Osorio MD [address] [facility] [place] [address] [place] [address] PCP - General 05/01/17 09/04/19 Md, Generic Conversion, MD PCP - General 10/29/13 7 , Generic Conversion, MD PCP - General 09/09/1310/28 , Generic Conversion, MD PCP - General 05/20/1309/08 , Generic Conversion, MD PCP - General 03/28/13 documented as of this encounter
--- OUTSIDE RECORDS SUMMARY | 2024-10-30 06:54 | XMS_ITS | Encounter Summary ---
Author Organization [facility] Address [address] [place] [address]. [place], [place] [address] [place] [address] Care Team Providers Care Armature Winder Repair Name Role Phone Amilcar Osorio MD Primary Care Provider [phone] Encounter Details Date Type Department Care Team (Late st Contact Info) Description 06/20/2017 Abstract [facility] Multispecialty Care - [facility] [address] [facility] [address] [place] [address] Harish Pitt MD [address] [address] Social History Tobacco Use Types Packs/Day Years Used Date Smoking Tobacco: Never Assessed Sex and Gender Information Value Date Recorded Sex Assigned at Not on file Legal Sex Male 11:29 PM CDT Gender Identity Not on file Sexual Orientation Not on file documented as of this encounter Last Filed Vital Signs Vital Sign Reading Time Taken Comments Blood Pressure 132/84 06/20/2017 9:19 AM CDT Pulse - - Temperature - - Respiratory Rate - - Oxygen Saturation - - Inhaled Oxygen Concentration - - Weight 120.2 kg (265 lb) 06/20/2017 9:19 AM CDT Height 175.3 cm (5' 9 ) 06/20/2017 9:19 AM CDT Body Mass Index 39.13 06/20/2017 9:19 AM CDT documented in this encounter Progress Notes * Generic Conversion MD Antelmo - 06/20/2017 9:20 AM CDT Message Recorded as Task Date: 11/13/2017 10:15 AM, Created By: Rebecca Merino Task Name: Call Back Assigned To: -Nurse Team Regarding Patient: Josafat Calvo, Status: Active Comment: Rebecca Merino - 13 Nov 2017 10:15 AM TASK CREATED Pt had xray done last week and would like to know results and what is next. Please call pt [phone]. Shari Bolden - 13 Nov 2017 10:39 AM TASK EDITED Eva Cruz - 13 Nov 2017 11:16 AM TASK REPLIED TO: Previously Assigned To Eva Cruz What X ray? Might be confusing us with someone else. Looks like we see him for testosterone. Shari Bolden - 13 Nov 2017 11:44 AM TASK EDITED pt is scheduled with [facility] but on a pm when KEP is here Shari Bolden - 13 Nov 2017 11:[address] Osorio ordered testicular US and seen results and him to go to Urology Plan 1. *Urine dip auto In Office; Status:Complete; Done: 13Akc9060 09:27AM Performed:In Office; Due:[id number]; Last Updated By:Jayshree Galvez; 06/20/2017 9:29:47 AM;Ordered; For:Elevated prostate specific antigen (PSA); Ordered By:Gina Fleming; 2. Prostate Specif Ag ( PSA ); Status:Need Information - Billable Problem; Requested for:[id number]; Perform:Other Lab; Order Comments:1 week before appt; Due:00Ehp0988; Last Updated By:Jayshree Galvez;06/20/2017 9:51:36 AM;Ordered; For:Elevated prostate specific antigen (PSA); Ordered By:Gina Fleming; 3. Viagra 50 MG Oral Tablet (Sildenafil Citrate); TAKE DIRECTED Rx By: Gina Fleming; Dispense: 4 Days ; #:4 Tablet; Refill: 0; For: Male erectile disorder of organic origin; MARK = N; Dispense Sample; Last Updated By: Jayshree Galvez; 06/20/2017 9:50:38 AM 4. Follow-up visit in 1 year Urology Follow-up in [address] yudi Fitzpatrick psa prior Status: Complete Done: [id number] Ordered; For: Male erectile disorder of organic origin; Ordered By: Gina Fleming Performed: Order Comments: Follow-up in [address] yudi Fitzpatrick psa prior Due: 20Jun2018; Last Updated By: Tamiko Thompson; 06/20/2017 11:56:35 AM 5. Follow-up visit in 3 weeks Urology Follow-up with Dr. Caldwell to discuss ED Status: Complete Done: [id number] Ordered; For: Male erectile disorder of organic origin; Ordered By: Gina Fleming Performed: Order Comments: Follow-up with Dr. Caldwell to discuss ED Due: [id number]; Last Updated By: Tamiko Thompson; 06/20/2017 11:56:54 AM 6. Ipratropium-Albuterol 0.5-2.5 (3) MG/3ML Inhalation Solution Rx By: BINDU ALMANZA; Dispense: 30 Days ; #:360; Refill: 0; MARK = N; Record; Last Updated By: Jayshree Galvez; 06/20/2017 9:25:49 AM Signatures Electronically signed by : Shari Bolden L.P.N.; Nov 13 2017 11:46AM PRESERVATIONIST (Author) * SEBASTIAN Samuel - 06/20/2017 9:20 AM CDT History of Present Illness HPI: 56 y.o. male with a hx of erectile dysfunction and an Elevated PSA level with one prior negative biopsy in 2011 returns for yearly follow up. PSA 1 year ago was 1.0 and 1.71 a year prior to that. For this a PSA level was not obtained prior to today's visit. The patient tells me he has done well over the last year in regards to his urination. He reports voiding without frequency throughout the day and up to 2 times nightly. He denies urgency or associated leakage. No obstructive sx's of hesitancy, straining, or difficulty emptying his bladder. No gross hematuria or dysuria. He does tell me that he continues to have issues obtaining an erection. He tells me the desire for intercourse is there. He denies any lethargy or unexplained weight gain. He tells me he has been given rx for viagra in the past but that the medication is too expensive for him. No chest pain or SOB at this time. No constitutional or systemic complaints at this time. Review of Systems Constitutional: no fever, no chills and no fatigue. Cardiovascular: no chest pain. Respiratory: no shortness of breath. Gastrointestinal: no abdominal pain. Genitourinary: no dysuria, no urinary frequency, no urinary urgency, no urinary incontinence, no urinary hesitancy, no hematuria, no pelvic pain and no testicular pain The patient presents with complaints of nocturia (2x). Active Problems 1. Elevated prostate specific antigen [...] Tablet; TK 1 T PO BID; Therapy: [id number] to Recorded Rx By: BINDU ALMANZA; Dispense: 30 Days ; #:60 TABS; Refill: 0; MARK = N; Record; Last Updated By: Jayshree Galvez; 06/20/2017 9:24:38 AM 2. HydroCHLOROthiazide 25 MG Oral Tablet; TK 1 T PO QAM; Therapy: [id number] to Recorded Rx By: BINDU ALMANZA; Dispense: 30 Days ; #:30 TABS; Refill: 0; MARK = N; Record; Last Updated By: Jayshree Galvez; 06/20/2017 9:24:38 AM 3. Ibuprofen 600 MG Oral Tablet; TK 1 T PO PO TID PRN WITH FOOD; Therapy: [id number] to Recorded Dispense: 20 Days ; #:60 TABS; Refill: 0; MARK = N; Record; Last Updated By: Adelaida Guzman; 11/23/2012 8:57:38 AM 4. Latanoprost 0.005 % Ophthalmic Solution; INSTILL 1 DROP INTO BOTH EYES QHS; Therapy: 06Idt1345 to Recorded Rx By: CARLOS MEEKS; Dispense: 25 Days ; #:2 SOLN; Refill: 0; MARK = N; Record; Last Updated By: Jayshree Galvez; 06/20/2017 9:24:38 AM 5. Nicotine Step 1 21 MG/24HR Transdermal Patch 24 Hour; APPLY 1 PATCH QD; Therapy: [id number] to Recorded Rx By: BINDU ALMANZA; Dispense: 28 Days ; #:28 PT24; Refill: 0; MARK = N; Record; Last Updated By: Jayshree Galvez; 06/20/2017 9:24:38 AM 6. Nicotine Step 2 14 MG/24HR Transdermal Patch 24 Hour; APPLY 1 PATCH QD; Therapy: [id number] to Recorded Rx By: BINDU ALMANZA; Dispense: 14 Days ; #:14 PT24; Refill: 0; MARK = N; Record; Last Updated By: Jayshree Galvez; 06/20/2017 9:24:38 AM 7. Symbicort 160-4.5 MCG/ACT Inhalation Aerosol; INL 2 PUFFS PO Q 12 HOURS UTD; Therapy: [id number] to Recorded Rx By: BINDU ALMANZA; Dispense: 30 Days ; #:10 AERO; Refill: 0; MARK = N; Record; Last Updated By: Jayshree Galvez; 06/20/2017 9:25:49 AM 8. Viagra 100 MG Oral Tablet; TAKE DIRECTED; Therapy: [id number] to (Last Rx:[id number]) Ordered Rx By: Harish Pitt; Dispense: 0 Days ; #:6 Tablet; Refill: 2; For: Elevated prostate specific antigen (PSA), Male erectile disorder of organic origin; MARK = N; Print Rx; Last Updated By: Shari Nichols; 05/03/2016 9:54:51 AM Allergies 1. Lisinopril TABS Recorded By: Argelia Bailey; 03/27/2015 10:02:27 AM 2. Penicillins Recorded By: Shari Nichols; 06/11/2012 12:14:24 PM Vitals Recorded: 24Oxy7286 09:19AM Temperature 98 F Systolic 132 Diastolic 84 Height 5 ft 9 in Weight 265 lb BMI Calculated 39.13 BSA Calculated 2.33 Physical Exam Constitutional General appearance: No acute distress, well appearing and well nourished. Genitourinary 25-30 cc in volume with no nodules felt. Psychiatric Orientation to person, place and time: Normal. Results/Data *Urine dip auto In Office 20Jun2017 09:27AM Gina Fleming Test Name Result Flag Reference Color Yellow Clarity Clear Glucose Negative Bilirubin Negative Ketones Negative Specific [place] 1.010 Blood Negative pH 5.0 5.0 - 7.0 Protein Negative Urobilinogen 0.2 E.U./dL Nitrites neg Leukocytes Negative Assessment Hx of elevated PSA level Erectile dysfunction Plan Elevated prostate specific antigen (PSA) 1. Prostate Specif Ag ( PSA ); Status:Need Information - Billable Problem; Requested for:20Jun2017; Perform:Other Lab; Order Comments:1 week before appt; Due:20Jun2018; Last Updated By:Jayshree Galvez;06/20/2017 9:51:36 AM;Ordered; For:Elevated prostate specific antigen (PSA); Ordered By:Gina Fleming; Male erectile disorder of organic origin 2. Viagra 50 MG Oral Tablet; TAKE DIRECTED Rx By: Gina Fleming; Dispense: 4 Days ; #:4 Tablet; Refill: 0; For: Male erectile disorder of organic origin; MARK = N; Dispense Sample; Last Updated By: Jayshree Galvez; 06/20/2017 9:50:38 AM 3. Follow-up visit in 1 year Urology Follow-up in [address] yudi Fitzpatrick psa prior Status: Hold For - Scheduling Requested for: [id number] Ordered; For: Male erectile disorder of organic origin; Ordered By: Gina Fleming Performed: Order Comments: Follow-up in [address] yudi Fitzpatrick psa prior Due: 20Jun2018; Last Updated By: Jayshree Galvez; 06/20/2017 9:53:43 AM 4. Follow-up visit in 3 weeks Urology Follow-up with Dr. Caldwell to discuss ED Status: Hold For - Scheduling Requested for: [id number] Ordered; For: Male erectile disorder of organic origin; Ordered By: Gina Fleming Performed: Order Comments: Follow-up with Dr. Caldwell to discuss ED Due: [id number]; Last Updated By: Jayshree Galvez; 06/20/2017 9:59:00 AM Unlinked 5. Ipratropium-Albuterol 0.5-2.5 (3) MG/3ML Inhalation Solution Rx By: BINDU ALMANZA; Dispense: 30 Days ; #:360 SOLN; Refill: 0; MARK = N; Record; Last Updated By:Lenny Jayshree; 06/20/2017 9:25:49 AM I have discussed with the patient coming back for a follow up with Dr. Karissa Fitzpatrick to further discuss treatment options in regards to ED. I have provided him with 2 samples of Viagra 50mg for in themeantime. He is to otherwise follow up in 1 year with a previsit PSA level. Signatures Electronically signed by : Gina Fleming APN; Jun 20 2017 10:29AM PRESERVATIONIST (Author) documented in this encounter Plan of Treatment Not on file documented as of this encounter Procedures Procedure Name Priority Date/Time Associated Diagnosis Comments URINALYSIS AUTO DIP Routine 06/20/2017 9 :27 AM CDT documented in this encounter Results * URINALYSIS AUTO DIP (06/20/2017 9:27 AM CDT) COLOR (U) Yellow [facility] T O EPIC CONVERSION TRANSPARENCY Clear MEDGROU P TO EPIC CONVERSION GLUCOSE Negative [facility] T O EPIC CONVERSION BILIRUBIN (U) Negative MEDGRO UP TO EPIC CONVERSION KETONE (U) Negative [facility] TO EPIC CONVERSION SPECIFIC GRAVITY (U) 1.010 [facility] TO EPIC CONVERSION BLOOD (U) Negative [facility] T O EPIC CONVERSION PH (U) 5.0 5.0 - 7.0 MEDGROUP T O EPIC CONVERSION PROTEIN (ELP) (U) Negative [facility] TO EPIC CONVERSION UROBILINOGEN 0.2 E.U./dL MEDGR OUP TO EPIC CONVERSION NITRITES neg [facility]GROUP T O EPIC CONVERSION LEUKOCYTES (U) Negative MEDGR OUP TO EPIC CONVERSION 06/20/2017 9:27 AM CDT 06/20/2017 9:27 AM CDT us Gina CORTES URINE ORDERABLES Final Result [facility] TO EPIC CONVERSION documented in this encounter Visit Diagnoses Not on filedocumented in this encounter Care Teams Armature Winder Repair Relationship Specialty Start Date End Date Amilcar Osorio MD [address] [place] [address] PCP - General 05/01/17 09/04/19 documented as of this encounter
--- OUTSIDE RECORDS SUMMARY | 2024-10-30 06:54 | XMS_ITS | Encounter Summary ---
Author Organization [facility] Address [facility]. [place], [place] [address] [place] [address] Care Team Providers Care Human Resource Assistant Name Role Phone Amilcar Osorio MD Primary Care Provider [phone] Jerry Rodriges MD Primary Care Provider Unavailable Encounter Details Date Type Department Care Team (Latest Contact Info) Description 03/13/2015 Abstract [facility] Medical Group Harish Pitt MD [address] [facility] [address] [place] [address] Social History Tobacco Use Types [...] on filedocumented in this encounter Care Teams Human Resource Assistant Relationship Specialty Start Date End Date Amilcar Osorio MD [address] [facility], [address] [place] [address] PCP - General 05/01/17 09/04/19 Jerry Rodriges MD PCP - General 10/29/13 7 documented as of this encounter
--- OUTSIDE RECORDS SUMMARY | 2024-10-30 06:54 | XMS_ITS | Encounter Summary ---
Author Organization [facility] Address [address] [place] [address]. [place] [address] [place] [address] Care Team Providers Care Chargeback Specialist Name Role Phone Amilcar Osorio MD Primary Care Provider [phone] Jerry Rodriges MD Primary Care Provider Unavailable Jerry Rodriges MD Primary Care Provider Unavailable Jerry Rodriges MD Primary Care Provider Unavailable Encounter Details Date Type Department Care Team (Late st Contact Info) Description 05/20/2013 Emergency [facility] Emergency [place], [place] [address] Jasson Auguste MD [facility] [place] [address] Social History Tobacco Use Types Packs/Day Years Used Date Smoking Tobacco: Never Assessed Sex and Gender Information Value Date Recorded Sex Assigned at Not on file Legal Sex Male 11:29 PM CDT Gender Identity Not on file Sexual Orientation Not on file documented as of this encounter Plan of Treatment Not on file documented as of this encounter Visit Diagnoses Diagnosis Other chest pain documented in this encounter Care Teams Chargeback Specialist Relationship Specialty Start Date End Date Amilcar Osorio MD [address] [address] PCP - General 05/01/17 09/04/19 Md, Generic Conversion, MD PCP - General 10/29/13 7 , Generic Conversion, PCP - General 09/09/1310/28 , Generic Conversion, PCP - General 05/20/1309/08 documented as of this encounter
--- OUTSIDE RECORDS SUMMARY | 2024-10-30 06:54 | XMS_ITS | Encounter Summary ---
Author Organization [facility] Address [address] [place] [address]. [place], [place] [address] [place] [address] Care Team Providers Care Metrology Specialist Name Role Phone Amilcar Osorio MD Primary Care Provider Md Generic Conversion Primary Care Provider Unavailable Md Generic Conversion Primary Care Provider Unavailable Md Generic Conversion Primary Care Provider Unavailable Md Generic Conversion Primary Care Provider Unavailable Encounter Details Date Type Department Care Team (Late st Contact Info) Description 03/28/2013 Abstract [facility] Medical Group Multispecialty Care - [facility] 3 [facility], [address] [place] [address] Rusty Mcfarlane, [address] [place] [address] Social History Tobacco Use Types Packs/Day Years Used Date Smoking Tobacco: Never Assessed Sex and Gender Information Value Date Recorded Sex Assigned at Not on file Legal Sex Male 11:29 PM CDT Gender Identity Not on file Sexual Orientation Not on file documented as of this encounter Progress Notes * DO Aaliyah Dalh 03/28/2013 9:45 AM CDT Vitals Signs [Data Includes: Last 1 Day] [id number] 10:32AM Temperature: 98.3 F Pain Scale: 2 Post-Op Post-Op Arthroscopic Knee: Josafat Calvo is seen in the [facility] clinic on March 28, 2013. He is status post right total knee arthroplasty. Pain rated 2/10. EXAMINATION: Shows a pleasant 52-year-old black male in no acute distress. Temperature 98.3. His incision is healed nicely. He has full extension and flexion greater than 110 degrees. The knee is stable to varus and valgus stress. He has no calf tenderness. Radiographs taken in the clinic today and reviewed by me show a stable-appearing right total knee arthroplasty with good alignment and no evidence of periprosthetic fracture or dislocation. IMPRESSION: Status post right total knee arthroplasty on March 23, 2013, doing well. PLAN: The patient is activities as tolerated. I will see him back in another two months' time for arecheck examination. HPI: PE: Assessment: Plan: Post-Op Open Knee: Josafat Calvo is status post total knee arthroplasty of the right knee on 01/21/2013. 2 months. HPI: PE: Assessment: Plan: Orders 1. Call if: Swelling of the ankle is not better in 2 days. Done: [id number] Assessment 1. Joint Pain, Localized In The Knee Right 719.46 2. Localized Primary Osteoarthritis Of The Right Knee 715.16 Signatures Electronically signed by : Rusty Mcfarlane D.O.; Apr 04 2013 9:10AM (Author) L PROGRAMMER documented in this encounter Plan of Treatment Not on file documented as of this encounter Visit Diagnoses Not on filedocumented in this encounter Care Teams Metrology Specialist Relationship Specialty Start Date End Date Amilcar Osorio MD [address] [place] [address] PCP - General 05/01/17 09/04/19 Md Generic ConversionMD PCP - General 10/29/13 7 Md Generic ConversionMD PCP - General 09/09/1310/28 Md Generic ConversionMD PCP - General 05/20/1309/08 Md Generic ConversionMD PCP - General 03/28/13 documented as of this encounter
--- OUTSIDE RECORDS SUMMARY | 2024-10-30 06:54 | XMS_ITS | Encounter Summary ---
Author Organization [facility] Address [facility]. [place], [place] [address] [place] [address] Care Team Providers Care Hospice Care Transitions Coordinator Name Role Phone Amilcar Osorio MD Primary Care Provider [phone] Jerry Rodriges MD Primary Care Provider Unavailable Encounter Details Date Type Department Care Team (Latest Contact Info) Description 01/17/2014 Abstract [facility] Medical Group Harish Pitt MD [address] [facility] 101 [place] [address] Social History Tobacco Use Types [...] on filedocumented in this encounter Care Teams Hospice Care Transitions Coordinator Relationship Specialty Start Date End Date Amilcar Osorio MD [address] [facility], [address] [place] [address] PCP - General 05/01/17 09/04/19 Jerry Rodriges MD PCP - General 10/29/13 7 documented as of this encounter
--- OUTSIDE RECORDS SUMMARY | 2024-10-30 06:54 | XMS_ITS | Encounter Summary ---
Author Organization [facility] Address [address] [place] [address]. [place], [place] [address] [place] [address] Care Team Providers Care Meter Inspector Name Role Phone Amilcar Osorio MD Primary Care Provider [phone] Md Generic Conversion Primary Care Provider Unavailable [...] Care Team (Late st Contact Info) Description 02/25/2013 Abstract [facility] Medical Group Multispecialty Care - [facility] 3 [facility], [address] [place] [id number] Rusty Mcfarlane, [address] [place] [address] Social History Tobacco Use Types Packs/Day Years Used Date Smoking Tobacco: Never Assessed Sex and Gender Information Value Date Recorded Sex Assigned at Not on file Legal Sex Male 11:29 PM CDT Gender Identity Not on file Sexual Orientation Not on file documented as of this encounter Progress Notes * DO Aaliyah Dahl 02/25/2013 11:15 AM CDT Vitals Signs [Data Includes: Last 1 Day] 25Feb2013 11:02AM Temperature: 98 F Pain Scale: 4 Post-Op Post-Op Open Knee: Josafat Calvo is status post total knee arthroplasty of the right knee on 01/21/2013. 1 month, 3 days; his pain can go up to 8/10 with burning sensation, incision is clean, dry, intact, taking hydrocodone needs a refill, given implant card, walking with walker, going to PT downstairs. HPI: The patient reports no excessive pain. The patient also reports using an assistive device for ambulation. PE: The surgical incision site was clean, dry and intact. The knee demonstrates warmth, swelling and tenderness, but no erythema and no ecchymosis. 10-100. Tests for DVT and compartment syndrome are both negative with soft, non tender calves and no palpable cords. Special tests include stability tovalgus stress and stability to varus stress. Peripheral neurovascular exam reveals intact sensationto light touch and intact gross motor function. Assessment: Post-op, the patient is doing well, has excellent pain control and is showing no signs of infection. Plan: Activity Restrictions: advance as tolerated. Done this visit:. Exam.Prescriptions for clindamycin 300 mg #12 2 capsules 1 hour prior to dental work no refills. Vicodin 5/500 one every 6 hours as needed for pain no refills. The prescriptions issued today in clinic. To Do For Next Visit: xray (3 views) . Review therapy notes. Continue outpatient physical therapy, Reviewed notes a followup. Follow up: 1 months. Orders 1. Call if: The pain is not better in 2 days. Done: 25Feb2013 2. Clindamycin HCl 300 MG Oral Capsule; TAKE 2 CAPSULES 1 HOUR PRIOR TO DENTAL APPOINTMENT; Therapy: 25Feb2013 to (Evaluate:03Mar2013); Last Rx:25Feb2013 3. Hydrocodone-Acetaminophen 5-500 MG Oral Tablet; TAKE 1 TABLET EVERY 6 HOURS NEEDED FOR PAIN; Therapy: 25Feb2013 to (Evaluate:[id number]); Last Rx:25Feb2013 Assessment 1. Joint Pain, Localized In The Knee Right 719.46 2. Localized Primary Osteoarthritis Of The Right Knee 715.16 Signatures Electronically signed by : Rusty Mcfarlane D.O.; Feb 25 2013 11:43AM (Author) ADER OPERATOR documented in this encounter Plan of Treatment Not on file documented as of this encounter Visit Diagnoses Not on filedocumented in this encounter Care Teams Meter Inspector Relationship Specialty Start Date End Date Amilcar Osorio MD [address] [place] [address] PCP - General 05/01/17 09/04/19 Md, Generic Conversion, MD PCP - General 10/29/13 Md, Generic Conversion, MD PCP - General [...]
--- OUTSIDE RECORDS SUMMARY | 2024-10-30 06:54 | XMS_ITS | Encounter Summary ---
Author Organization [facility] Address [address] [place] [address]. [place], [place] [address] [place] [address] Care Team Providers Care Water Treatment Operator Name Role Phone Amilcar Osoiro MD Primary Care Provider [phone] Reason for Referral * (Routine) - Closed Specialty Diagnoses / Procedures Referred By Florentino lowe Referred To Contact Diagnoses Other specified disorders of male genital organs Procedures TESTICULAR Amilcar Osorio MD [address] [address] Phone: tel: fax: Referral ID Status Reason Start Date Expiration Date Visits Re quested Visits Authorized [id number] Closed 10/25/2017 11/24/2018 1 1 OR COUNSEL COMMERCIAL Reason for Visit * (Routine) - Closed Specialty Diagnoses / Procedures Referred By Florentino lowe Referred To Contact Diagnoses Other specified disorders of male genital organs Procedures TESTICULAR Amilcar Osorio MD [address] [facility], [address] [address] Phone: tel: fax: Referral ID Status Reason Start Date Expiration Date Visits Re quested Visits Authorized [id number] Closed 10/25/2017 11/24/2018 1 1 Encounter Details Date Type Department Care Team (Late st Contact Info) Description 11/10/2017 8:59 AM SENIOR COUNSEL COMMERCIAL - 11/10/2017 11:59 PM SENIOR COUNSEL COMMERCIAL Hospital Encounter [facility] [place] [address] Amilcar Osorio MD [address] [facility] [address] [place] [phone] Discharge Disposition: Home or Self Care (Routine [...] Date/Time Associated Diagnosis Comments US TESTICULAR Routine 11/10/2017 9:41 AM SENIOR COUNSEL COMMERCIAL Other specified disorders of male genital organs documented in this encounter Results * US TESTICULAR (11/10/2017 9:41 AM SENIOR COUNSEL COMMERCIAL) Anatomical Region Laterality Modality Pelvis Ultrasound 11/10/2017 11:4 4 AM SENIOR COUNSEL COMMERCIAL Impressions 11/10/2017 11:48 AM SENIOR COUNSEL COMMERCIAL =====IMPRESSION:===== 1. Complex left intratesticular cyst measuring 1.3 cm. 2. Bilateral epididymal cysts. Narrative 11/10/2017 11:48 AM SENIOR COUNSEL COMMERCIAL EXAMINATION: Testicular ultrasound EXAM DATE/TIME: 11/10/2017 9:07 AM REASON FOR EXAM: ??Left testicular swelling and palpable lump ? COMPARISON: None FINDINGS: ? The right testis measures 4.0cm X 2.0cm X 2.8cm. No discrete testicular lesion. Epididymal cyst measures 8 mm. The left testis measures4.2cm X 1.9cm X 2.6cm. There is a mildly complex intratesticular cyst of the left testis inferior pole measuring 1.3 cm in diameter. This is in close proximity to the mediastinum testis. Elongated epididymal cyst measures 2.4 cm in length. Intratesticular blood flow is shown bilaterally using color Doppler and spectral analysis. Procedure Note Stan Humphreys MD - 11/10/2017 EXAMINATION: Testicular ultrasound EXAM DATE/TIME: 11/10/2017 9:07 AM REASON FOR EXAM: Left testicular swelling and palpable lump COMPARISON: None FINDINGS: The right testis measures 4.0cm X 2.0cm X 2.8cm. No discrete testicular lesion. Epididymal cyst measures 8 mm. The left testis measures4.2cm X 1.9cm X 2.6cm. There is a mildly complex intratesticular cyst of theleft testis inferior pole measuring 1.3 cm in diameter. This is in close proximity to the mediastinum testis. Elongated epididymal cyst measures2.4 cm in length. Intratesticular blood flow is shown bilaterally usingcolor Doppler and spectral analysis. =====IMPRESSION:===== 1. Complex left intratesticular cyst measuring 1.3 cm. 2. Bilateral epididymal cysts. Amilcar Osorio MD ULTRASOUND Final Result documented in this encounter Visit Diagnoses Diagnosis Other specified disorders of male genital organs documented in this encounter Care Teams Water Treatment Operator Relationship Specialty Start Date End Date Amilcar Osorio MD [address] [place] [address] PCP - General 05/01/17 09/04/19 documented as of this encounter
--- OUTSIDE RECORDS SUMMARY | 2024-10-30 06:54 | XMS_ITS | Encounter Summary ---
Author Organization [facility] Address [address] [place] [address]. [place], [place] [address] [place] [address] Care Team Providers Care Solar/Renewable Energy Sales Name Role Phone Amilcar Osorio MD Primary Care Provider [phone] Md Generic Roselyn WALTERS Primary Care Provider Unavailable Jerry Walters MD Primary Care Provider Unavailable Jerry Walters MD Primary Care Provider Unavailable Jerry Walters MD Primary Care Provider Unavailable Jerry Walters MD Primary Care Provider Unavailable Encounter Details Date Type Department Care Team (Latest Contact Info) Description 03/27/2013 Abstract [facility] Medical Group Social History Tobacco Use [...] on filedocumented in this encounter Care Teams Solar/Renewable Energy Sales Relationship Specialty Start Date End Date Amilcar Osorio MD [address] [facility], [facility] [address] [place] [address] PCP - General 05/01/17 09/04/19 Md Generic MD Roselyn PCP - General 10/29/13 7 Jerry Walters MD PCP - General 09/09/1310/28 Jerry Walters MD PCP - General 05/20/1309/08 Md, Generic Conversion, MD PCP - General 03/28/13 Md, Generic Conversion, MD PCP - General 03/27/13 documented as of this encounter
--- OUTSIDE RECORDS SUMMARY | 2024-10-30 06:54 | XMS_ITS | Encounter Summary ---
Author Organization [facility] Address [address] [place] [address]. [place], [place] [address] [place] [address] Care Team Providers Care Food Management Aide Name Role Phone Amilcar Osorio MD Primary Care Provider [phone] Encounter Details Date Type Department Care Team (Latest Contact Info) Description 11/10/2017 Abstract [facility] Medical Group Gina Fleming APNP [address] [facility] [address] [place] [address] Social History Tobacco Use Types Packs/Day Years [...] on filedocumented in this encounter Care Teams Food Management Aide Relationship Specialty Start Date End Date Amilcar Osorio MD [address], [address] [place] [address] PCP - General 05/01/17 09/04/19 documented as of this encounter
--- OUTSIDE RECORDS SUMMARY | 2024-10-30 06:54 | XMS_ITS | Encounter Summary ---
Author Organization [facility] Address [address] [place] [address]. [place], [place] [address] [place] [address] Care Team Providers Care Mainframe Software Developer Name Role Phone Amilcar Osorio MD Primary Care Provider [phone] Jerry Rodriges MD Primary Care Provider Unavailable Encounter Details Date Type Department Care Team (Late st Contact Info) Description 11/09/[address] [facility] Medical Group Multispecialty Care - [facility] 3 [facility]., [address] [place] [address] Josafat Ramirez MD [address] [place] [address] Social History Tobacco Use Types Packs/Day Years Used Date Smoking Tobacco: Never Assessed Sex and Gender Information Value Date Recorded Sex Assigned at Not on file Legal Sex Male 11:29 PM CDT Gender Identity Not on file Sexual Orientation Not on file documented as of this encounter Progress Notes * Josafat Ramirez MD - 11/09/2016 9:30 AM CST History of Present Illness CHIEF COMPLAINT: Left hip pain. HISTORY OF PRESENT ILLNESS: Mr. Calvo is a 56-year-old male who has been having left hip pain for the past several years intermittently. It has been worse over the past couple of months. He says theweather makes it worse. Medication does not seem to help him. He has not had any injections. He didhave CT scan last winter which did not show any abnormalities in the hip. He has not been treated for any back problems. PHYSICAL EXAMINATION: He is alert and oriented. He ambulates without any problems. He is 5 feet 9, 250 pounds. He is tender over the trochanteric bursa on the left side. He has no pain with hip rangeof motion. I am able to flex him up to 90 degrees internally and externally rotated without problems. He has got some response to straight leg test on the left. Leg is well perfused. Motor and sensory exam is normal. IMAGING: AP pelvis and two views of the left hip, AP and frog lateral, show no significant osteoarthritis of the hip. He does have a little bit of a pistol photographer helper deformity with possible cam-type impingement lesion; however, this is bilateral. ASSESSMENT 1. Left hip trochanteric bursitis. 2. Likely radicular lumbar pain. PLAN: I have injected the patient with 40 mg of methylprednisolone and 4 cc of 0.5% bupivacaine through a direct approach over the troch bursa. He tolerated it well and I am going to see him back on an as-needed basis. Review of Systems Constitutional: negative. Head and Face: negative. Eyes: blurred vision. ENT: nasal congestion and nasal discharge. Cardiovascular: chest pain. Respiratory: shortness of breath, wheezing, cough, clear sputum and colored sputum. Gastrointestinal: abdominal pain. Genitourinary: pelvic pain. Musculoskeletal: diffuse joint pain, generalized muscle aches, joint swelling, joint stiffness, back muscle spasm, pain in other joints and limping. Neurological: difficulty walking. Psychiatric: irritability, anxiety and depression. Endocrine: negative. Hematologic and Lymphatic: negative. Active Problems 1. Elevated prostate specific antigen [...] History of Pulmonary Artery Endarterectomy Family History Mother 1. No pertinent family history Family History 2. Family history of Alcoholism 3. Family history of Asthma (V17.5) 4. Family history of Brain Cancer (V16.8) 5. Family history of Cancer 6. Family history of Carcinoma Of The Lung (V16.1) 7. Family history of Colon Cancer (V16.0) 8. Family history of In The Family Father 9. Family history of In The Family Mother 10. Family history of Depression 11. Family history of Diabetes Mellitus (V18.0) 12. Family history of Family Health Status Siblings 2 Living 13. Family history of Glaucoma (V19.11) 14. Family history of Heart Disease (V17.49) 15. Family history of Hypertension (V17.49) 16. Family history of Prostate Cancer (V16.42) [...] PO PO TID PRN WITH FOOD; Therapy: [id number] to Recorded 2. Viagra 100 MG Oral Tablet; TAKE DIRECTED; Therapy: [id number] to (Last Rx:[id number]) Ordered Allergies 1. Lisinopril TABS 2. Penicillins Results/Data XY Pelvis and Hip Lt ND 09Nov2016 10:16AM Josafat Ramirez Test Name Result Flag Reference Pacs Image Result Radiology image is available. Click on Image Link above. Plan Hip pain, left 1. MethylPREDNISolone Acetate 40 MG/ML Injection Suspension (DEPO-Medrol) 2. XY Pelvis and Hip Lt NC; Status:Resulted - Requires Verification; Done: 09Nov2016 10:16AM Signatures Electronically signed by : Josafat Ramirez M.D.; Nov 15 2016 8:34PM FOUNDRY EQUIPMENT MECHANIC (Author) documented in this encounter Plan of Treatment Not on file documented as of this encounter Procedures Procedure Name Priority Date/Time Associated Diagnosis Comments XR PELVIS AP+LT HIP 2V Routine 11/09/2016 10:16 AM FOUNDRY EQUIPMENT MECHANIC documented in this encounter Results * XR PELVIS AP+LT HIP 2V (11/09/2016 10:16 AM FOUNDRY EQUIPMENT MECHANIC) Anatomical Region Laterality Modality Pelvis, Hip Radiographic Joann ging 11/09/2016 10:1 6 AM FOUNDRY EQUIPMENT MECHANIC 11/09/2016 10:16 AM FOUNDRY EQUIPMENT MECHANIC Narrative 11/09/2016 10:12 AM FOUNDRY EQUIPMENT MECHANIC Radiology image is available. Click on Image Link above. Procedure Note Josafat Ramirez MD - 08/24/2018 Radiology image is available. Click on Image Link above. us Josafat Ramirez MD GENERAL IMAGING Final Result documented in this encounter Visit Diagnoses Not on filedocumented in this encounter Care Teams Mainframe Software Developer Relationship Specialty Start Date End Date Amilcar Osorio MD [address] [place] [address] PCP - General 05/01/17 09/04/19 Jerry Rodriges MD PCP - General 10/29/13 7 documented as of this encounter
--- OUTSIDE RECORDS SUMMARY | 2024-10-30 06:54 | XMS_ITS | Encounter Summary ---
Author Organization [facility] Address [address] [place] [address]. [place], [place] [id number] [place] [id number] Care Team Providers Care Unloader Operator Name Role Phone Amilcar Osorio MD Primary Care Provider [phone] Reason for Visit * Physical Therapy (Routine) - Closed Specialty Diagnoses / Procedures Referred By Florentino lowe Referred To Contact PHYSICAL THERAPY / [facility] Physical Therapy Diagnoses LEFT HIP Procedures EVAL 60 MIN Amilcar Osorio MD [address] [address] Phone: tel: fax: Estela [place]vath, [place] [address] Phone: tel: fax: Referral ID Status Reason Start Date Expiration Date Visits Re quested Visits Authorized [id number] Closed 03/22/2018 03/23/2019 Encounter Details Date Type Department Care Team (Late st Contact Info) Description 03/22/2018 9:52 AM CDT - 03/22/2018 11:59 PM T Hospital Encounter [facility] [place] [address] Amilcar Osorio MD [address] [address] Estela Horvath, [place] [address] Discharge Disposition: Home or Self Care (Routine [...] 11/06/2017 07/16/2019 documented as of this encounter Progress Notes * Estela Horvath, PT - 03/22/2018 10:20 AM CDT Physical Therapy Evaluation Date: 03/22/2018 Patient Name: Josafat Calvo : 1960 Diagnosis: The encounter diagnosis was Left hip pain. AMB PT SUBJECTIVE EVAL: History of Present Illness: Onset date: about a year ago, no known injury. Mechanism of injury: Presents with Left hip and knee pain for at least one year. Cause unknown. Pain wakes him at night. Increased pain with activity especially lawn mowing and spring cleaning. History of low back pain, was offered back injections but declined. See intake form for full detail. Quality of life: Fair Pain: Current pain ratin At best pain ratin At worst pain ratin Location: Left hip & knee Quality: Dull ache and sharp Relieving factors: Rest, medications and change in position Aggravating factors: Lifting and movement Progression: Worsening Treatments: Previous treatment: Physical therapy, medication and chiropractic Current treatment: medication Patient Goals: Patient goals for therapy: Decreased pain, increased motion, increased strength and return to sport/leisure activities Objective Static Posture Comments Standing posture unremarkable Palpation Additional Palpation Details Mod- max tender B lumbar PVM & SIJ. Max tender Left piriformis, gluteus medius, Illiopsoas mm. Lumbar Screen Lumbar range of motion within normal limits with the following exceptions:Lumbar AROM: Flexion 76% Extension: 75% pain in left hip Rotation: R WFL. Left 25 % pain L hip Sidebend: R WFL L 25% pain left hip Active Range of Motion Left Hip Flexion: 90 degrees with pain Abduction: 30 degrees with pain Adduction: WFL and with pain External rotation (prone): 23 degrees with pain Internal rotation (prone): 30 degrees with pain Right Hip Flexion: 110 degrees Abduction: 30 degrees Adduction: WFL External rotation (prone): 25 degrees Internal rotation (prone): 35 degrees Passive Range of Motion Left Hip Flexion: 95 degrees with pain Additional Passive Range of Motion Details Flexibility: Left hip flexors and piriformis tight with 50% flexibility. Strength/Myotome Testing Left Hip Planes of Motion Flexion: 4 Extension: 3+ Abduction: 3+ Adduction: 4- Right Hip Planes of Motion Flexion: 4+ Extension: 4+ Abduction: 4 Adduction: 4+ Left Knee Flexion: 4- Extension: 4 Right Knee Flexion: 4+ Extension: 4+ Left Ankle/Foot Dorsiflexion: 4 Inversion: 4 Eversion: 4 Right Ankle/Foot Dorsiflexion: 4+ Inversion: 4+ Eversion: 4+ Additional Strength Details Core: poor Tests Additional Tests Details Slump test :Right slightly positive for L low back pain Left positive for Left LBP SLR: positive Left for hamstring & LBP ESTEFANIA: positive for R hip for tightness, Left hip for LBP Ambulation Comments No AD. Mild antalgia Left with decreased hip extension and push off. Physical Therapy Certification Form - Joint Treatment Today: Initial Evaluation completed with patient education on evaluation findings and plan of MCC Modality Education: Ice or heat for 15-20 minutes at least one times per day HEP instruction: LTR, SKC, SKOC L, supine L hip flexor stretch Outcome tool: LE optimal Score: 17/ Neuro Reeducation importance of core stabilization w/ activity Timed Code Tx Minutes 15 Units 1 Total Tx Time 50 15 Therapeutic Exercise, 30 Mod Therapy Diagnosis: Pain in Joint - left hip joint and knee joint Stiffness- left hip joint and low back Muscle weakness (generalized-multiple) Other Abnormalities of Gait and Mobility (Pain/Weakness/Instability/unsteady) Low back pain Patient demonstrated Good understanding of above education and HEP. Rehab Potential (Fair Assessment: 57 y/o male with referring diagnosis of left hip pain presents with c/o Left hip/knee pain and chronic low back pain. Signs & symptoms consistent with Left hip pain/stiffness/weaknessand pain being referred from low back(slump & SLR positive). To benefit from skilled PT to address above deficits and goals to decrease pain for return to PLOF with yard work and heavy cleaning. Therapy Goals: (Goals to be met by DC) 1. Increase ROM/ flexibility of Lumbar AROM WFL and painfree for improved tolerance to yard work 2. Good Posture/body Mechanics especially with heavier activity 3. Independent HEP t/o plan of care 4. Decrease pain 2-3/10 at worst with activity 5. Decrease muscle spasm/tissue tension lumbar & hip 6. Functional Gait pattern/equal weight bearing Normalized gait level surfaces & steps and uneven outdoor surfaces 7. Increase strength Core fair, L LE 4+/5 for improved lumbar stabilization with yard work 8. Left Hip AROM WFL & painfree with improved joint mobility. Assessment Eval Complexity Personal Factor/Co-morbidities: 1-2 (Mod) Chronicity, HTN, Limited Return to Work, Substance Abuse Examination of Body Systems Needing Addressed: 3 or more (Mod) Household Tasks Deficits, LE Deficits, Muscle Tension, Sleep Deficits, UE Deficits, Work Task Deficits Clinical Presentation of Patient: Evolving (Mod) Evolving and changing characteristics - Varying Pain with Activity Clinical Decision Making: Mod Patient to be seen for: body mechanics education, flexibilty, home exercise program, instruction inself-help/behavior modification, manual therapy, modalities, neuromuscular reeducation, posture education, ROM, strengthening Next Visit: Review HEP and patient education. Start supine south korean ball ex for trunk/hip AROM & core strengthening, progressive LE/core strengthening as tolerated, flexibility of Left hip mm & joint, manual to lumbar/hip, modalities/taping prn to decrease pain/increase tolerance to exercise. Frequency: 6 - 8 visits per 1-2 month Therapist: ESTELA HORVATH PT Date: 03/22/18 Time: 10:21 AM Physician Signature: Date: Time: Patient Name: Josafat Calvo : 1960 documented in this encounter Plan of Treatment Not on file documented as of this encounter Visit Diagnoses Diagnosis Left hip pain- Primary Pain in joint, pelvic region and thigh documented in this encounter Care Teams Unloader Operator Relationship Specialty Start Date End Date Amilcar Osorio MD [address] [place] [id number] PCP - General 05/01/17 09/04/19 documented as of this encounter
--- OUTSIDE RECORDS SUMMARY | 2024-10-30 06:54 | XMS_ITS | Encounter Summary ---
Author Organization [facility] Address [address] [place] [address]. [place], [place] [address] [place] [address] Care Team Providers Care Teacher Of The Emotionally Disturbed Name Role Phone Amilcar Osorio MD Primary Care Provider [phone] Encounter Details Date Type Department Care Team (Late st Contact Info) Description 02/05/2018 Abstract [facility] Multispecialty Care - [facility] [address] [facility] [address] [place] [phone] Gina Fleming APNP [address] [place] [address] Social History Tobacco Use Types Packs/Day Years Used Date Smoking Tobacco: Never Assessed Sex and Gender Information Value Date Recorded Sex Assigned at Not on file Legal Sex Male 11:29 PM CDT Gender Identity Not on file Sexual Orientation Not on file documented as of this encounter Last Filed Vital Signs Vital Sign Reading Time Taken Comments Blood Pressure 160/82 02/05/2018 9:31 AM CDT Pulse 81 02/05/2018 9:31 AM CDT Temperature - - Respiratory Rate - - Oxygen Saturation - - Inhaled Oxygen Concentration - - Weight 112 kg (247 lb) 02/05/2018 9:31 AM CDT Height 175.3 cm (5' 9 ) 02/05/2018 9:31 AM CDT Body Mass Index 36.48 02/05/2018 9:31 AM CDT documented in this encounter Progress Notes * Gina Fleming, [place] - 02/05/2018 10:00 AM CDT Chief Complaint Follow up History of Present Illness HPI: 57 y.o. male with a Hx of elevated PSA in which he had a negative biopsy in 2011, BPH, and erectile dysfunction presents to discuss repeat scrotal US results after being found to have a complex left intratesticular cyst in October of this year. He obtained tumor markers at the time of identified left intratesticular cyst. AFP and Beta HCG were negative. Unfortunately he was asked to obtain aLDH at that time but this was not done for some reason. He has done well over the last couple of months. Denies any change in his urination. No irritative or obstructive voiding symptoms. No gross hematuria or dysuria. No testicular pain. No systemic or constitutional complaints. Review of Systems Constitutional: no fever, no chills and no fatigue. Gastrointestinal: no abdominal pain, no nausea and no vomiting. Genitourinary: no dysuria, no urinary frequency, no urinary urgency, no urinary incontinence, no urinary hesitancy, no hematuria, no pelvic pain and no testicular pain. Active Problems 1. Benign prostatic hyperplasia (600.00) [...] Tablet; TK 1 T PO BID; Therapy: [id number] to Recorded Rx By: BINDU ALMANZA; Dispense: 30 Days ; #:60; Refill: 0; MARK = N; Record; Last Updated By: Jayshree Galvez; 06/20/2017 9:24:38 AM 2. HydroCHLOROthiazide 25 MG Oral Tablet; TK 1 T PO QAM; Therapy: [id number] to Recorded Rx By: BINDU ALMANZA; Dispense: 30 Days ; #:30; Refill: 0; MARK = N; Record; Last Updated By: Jayshree Galvez; 06/20/2017 9:24:38 AM 3. Ibuprofen 600 MG Oral Tablet; TK 1 T PO PO TID PRN WITH FOOD; Therapy: [id number] to Recorded Dispense: 20 Days ; #:60; Refill: 0; MARK = N; Record; Last Updated By: Adelaida Guzman; 11/23/2012 8:57:38 AM 4. Latanoprost 0.005 % Ophthalmic Solution; INSTILL 1 DROP INTO BOTH EYES QHS; Therapy: [id number] to Recorded Rx By: CARLOS MEEKS; Dispense: 25 Days ; #:2; Refill: 0; MARK = N; Record; Last Updated By: Jayshree Galvez; 06/20/2017 9:24:38 AM 5. Nicotine Step 1 21 MG/24HR Transdermal Patch 24 Hour; APPLY 1 PATCH QD; Therapy: [id number] to Recorded Rx By: BINDU ALMANZA; Dispense: 28 Days ; #:28; Refill: 0; MARK = N; Record; Last Updated By: Jayshree Galvez; 06/20/2017 9:24:38 AM 6. Nicotine Step 2 14 MG/24HR Transdermal Patch 24 Hour; APPLY 1 PATCH QD; Therapy: [id number] to Recorded Rx By: BINDU ALMANZA; Dispense: 14 Days ; #:14; Refill: 0; MARK = N; Record; Last Updated By: Jayshree Galvez; 06/20/2017 9:24:38 AM 7. Sildenafil Citrate 100 MG Oral Tablet; TAKE ONE TABLET NEEDED; Therapy: 16Nov2017 to (Last Rx:[id number]) Ordered Rx By: Gina Fleming; Dispense: 0 Days ; #:6 Tablet; Refill: 2; For: Male erectile disorder of organic origin; MARK = N; Faxed To: [facility]; Last Updated By: Judy Villareal; 11/16/2017 3:54:05 PM 8. Sildenafil Citrate 50 MG Oral Tablet; Take 1 tablet by mouth as needed, 1 hour prior to intercourse; Therapy: 26Jan2018 to (Last Rx:26Jan2018) Requested for: 26Jan2018 Ordered Rx By: Gina Fleming; Dispense: 0 Days ; #:6 Tablet; Refill: 0; For: Male erectile disorder of organic origin; MARK = N; Verified Transmission to [facility]; Last Updated By: Cristy Whipple; 01/26/2018 1:58:47 PM 9. Symbicort 160-4.5 MCG/ACT Inhalation Aerosol; INL 2 PUFFS PO Q 12 HOURS UTD; Therapy: [id number] to Recorded Rx By: BINDU ALMANZA; Dispense: 30 Days ; #:10; Refill: 0; MARK = N; Record; Last Updated By: Jayshree Galvez; 06/20/2017 9:25:49 AM 10. Viagra 100 MG Oral Tablet; TAKE DIRECTED; Therapy: [id number] to (Last Rx:[id number]) Ordered Rx By: Harish Pitt; Dispense: 0 Days ; #:6 Tablet; Refill: 2; For: Elevated prostate specific antigen (PSA), Male erectile disorder of organic origin; MARK = N; Print Rx; Last Updated By: Shari Nichols; 05/03/2016 9:54:51 AM 11. Viagra 50 MG Oral Tablet; TAKE DIRECTED; Therapy: [id number] to (Evaluate:[id number]); Last Rx:[id number] Ordered Rx By: Gina Fleming; Dispense: 4 Days ; #:4 Tablet; Refill: 0; For: Male erectile disorder of organic origin; MARK = N; Dispense Sample; Last Updated By: Jayshree Galvez; 06/20/2017 9:50:38 AM Allergies 1. Lisinopril TABS Recorded By: Argelia Bailey; 03/27/2015 10:02:27 AM 2. Penicillins Recorded By: Shari Nichols; 06/11/2012 12:14:24 PM Vitals Recorded: 05Feb2018 09:31AM Temperature 98.4 F Heart Rate 81 Systolic 160 Diastolic 82 Not able to obtain height Patient stated height Height 5 ft 9 in Weight 247 lb BMI Calculated 36.48 BSA Calculated 2.26 Physical Exam Constitutional General appearance: No acute distress, well appearing and well nourished. Genitourinary Anus and perineum: Normal. Prostate felt to be approximately 30 cc in volume, hard to fully asses in its entirety due to patient's body habitus. No obvious nodules felt.. Digital rectal exam of seminal vesicles: Normal size, no masses. Anus, perineum, and rectum: Normal. Psychiatric Orientation to person, place and time: Normal. Results/Data *Urine dip auto In Office 05Feb2018 09:32AM Gina Fleming Test Name Result Flag Reference Color Yellow Clarity Clear Glucose Negative Bilirubin Negative Ketones Negative Specific Linn 1.020 Blood Negative pH 6 5.0 - 7.0 Protein Negative Urobilinogen Negative Nitrites neg Leukocytes Negative Scrotal US 01/23/18- No right testicular mass or torsion. Right epididymal head cyst measuring up to7.5 mm, is relatively stable. Septated or bilobed cyst left testicle inferior pole. Measures up to 1.07 cm. this is decreased in size. Septation appears thinner. Less internal echos. 2 epididymal head cysts noted. Largest cyst measures up to 1.3 cm. Small right hydrocele Assessment BPH Hx of elevated PSA, negative biopsy in 2011 Left intratesticular cyst, decreased in size Erectile dysfunction Right epididymal head cyst Left testicle inferior pole cyst Small right hydrocele Plan He will obtain a PSA now. We will notify him of results. He will followup in 6 months with another previsit scrotal US. Rx for Sildenafil 20 mg 2.5 tabs PO PRN 1 hour prior to intercourse #30, 2 refills. Signatures Electronically signed by : Gina Fleming APN; Feb 05 2018 11:28AM [employer] (Author) Electronically signed by : Harish Pitt M.D.; Feb 05 2018 2:17PM [employer] (Author) documented in this encounter Plan of Treatment Not on file documented as of this encounter Procedures Procedure Name Priority Date/Time Associated Diagnosis Comments PROSTATE SPECIFIC ANTIGEN,TOTAL Routine 02/05/2018 10:38 AM CDT URINALYSIS AUTO DIP Routine 02/05/2018 9 :32 AM CDT documented in this encounter Results * PROSTATE SPECIFIC ANTIGEN,TOTAL (02/05/2018 10:38 AM CDT) PSA 0.62 <4.00 NG/ML [facility] CONVERSION Comment: Result Comment: Test was performed using the Siemens method. ??Results obtained with other assay methods or kits cannot be used interchangeably with results obtained by the Siemens method. 02/05/2018 10:3 8 AM CDT 02/05/2018 10:38 AM CDT Narrative [facility] TO [facility] CONVERSION - 02/05/2018 4:19 PM CDT Result Communication: No patient communication needed at this time [facility] Final Result [facility] TO [facility] CONVERSION * URINALYSIS AUTO DIP (02/05/2018 9:32 AM CDT) COLOR (U) Yellow [facility] T O EPIC CONVERSION TRANSPARENCY Clear [facility] P TO EPIC CONVERSION GLUCOSE Negative [facility] T O EPIC CONVERSION BILIRUBIN (U) Negative [facility] UP TO EPIC CONVERSION KETONE (U) Negative [facility] TO [facility] CONVERSION SPECIFIC GRAVITY (U) 1.020 [facility] TO [facility] CONVERSION BLOOD (U) Negative [facility] EPIC CONVERSION PH (U) 6 5.0 - 7.0 [facility] T O EPIC CONVERSION PROTEIN (ELP) (U) Negative [facility] CONVERSION UROBILINOGEN Negative [facility] TO EPIC CONVERSION NITRITES neg [facility] T O EPIC CONVERSION LEUKOCYTES (U) Negative [facility] OUP TO EPIC CONVERSION 02/05/2018 9:32 AM CDT 02/05/2018 9:32 AM CDT Narrative [facility] TO [facility] CONVERSION - 02/05/2018 9:31 AM CDT Result Communication: No patient communication needed at this time [facility] ORDERABLES Final Result [facility] CONVERSION documented in this encounter Visit Diagnoses Not on filedocumented in this encounter Care Teams Teacher Of The Emotionally Disturbed Relationship Specialty Start Date End Date Amilcar Osorio MD [address] [place] [id number] PCP - General 05/01/17 09/04/19 documented as of this encounter
--- OUTSIDE RECORDS SUMMARY | 2024-10-30 06:54 | XMS_ITS | Encounter Summary ---
Author Organization [facility] - [facility] Address [address] [place] [address]. [place], [place] [address] [place] [address] Care Team Providers Care Clinical Psychology Professor Name Role Phone Amilcar Osorio MD Primary Care Provider [phone] Jerry Rodriges MD Primary Care Provider Unavailable Encounter Details Date Type Department Care Team (Late st Contact Info) Description 03/27/2015 Abstract [facility] Medical Group Multispecialty Care - [facility] [address] [facility], [address] [place] [phone] Harish Pitt MD [address] [address] Social History Tobacco Use Types Packs/Day Years Used Date Smoking Tobacco: Never Assessed Sex and Gender Information Value Date Recorded Sex Assigned at Not on file Legal Sex Male 11:29 PM CDT Gender Identity Not on file Sexual Orientation Not on file documented as of this encounter Last Filed Vital Signs Vital Sign Reading Time Taken Comments Blood Pressure 180/130 03/27/2015 10:01 AM CDT Pulse - - Temperature - - Respiratory Rate - - Oxygen Saturation - - Inhaled Oxygen Concentration - - Weight 120.2 kg (265 lb) 03/27/2015 10:01 AM CDT Height 175.3 cm (5' 9 ) 03/27/2015 10:01 AM CDT Body Mass Index 39.13 03/27/2015 10:01 AM CDT documented in this encounter Progress Notes * Harish Pitt MD - 03/27/2015 10:15 AM CDT History of Present Illness 54-year-old male who underwent prostate biopsy 3 years ago for a PSA of 7.6, and whose biopsies showed no cancer, returns for followup. He denies any bothersome urinary symptoms. He urinates 4-5 times a day and usually twice a night. He admits to drinking a large amount of liquids.No bothersome obstructive or irritative voiding symptoms. Continues to have difficulties with erections. No new health problems. Presently only on a blood pressure medication and nothing else. Active Problems 1. Elevated prostate specific antigen (PSA) (790.93) (R97.2) 2. Knee pain, unspecified laterality (719.46) (M25.569) 3. 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 Primary osteoarthritis of right knee (715.16) (M17.11) Past Medical History 1. History of Anxiety (300.00) (F41.9) 2. History of depression (V11.8) (Z86.59) 3. History of hypertension (V12.59) (Z86.79) 4. History of obesity (V13.89) (Z87.898) 5. History of Pulmonary Embolism (V12.55) 6. [...] 14. Family history of Hypertension (V17.49) 15. Family history of Prostate Cancer (V16.42) 16. Family history of Reported Family History Of Heart Disease 17. Family history of Reported Family History Of Mental Illness (Not Retardation) 18. Family history of Stroke Syndrome (V17.1) Social History ?? Cigarette smoker (305.1) (Z72.0) ?? Living Independently Alone (V60.3) ?? Never Drank Alcohol ?? Never Used Drugs ?? Smoker (305.1) (Z72.0) ?? Stopped Drinking Alcohol Current Meds 1. Aspirin 81 MG Oral Tablet; Therapy: (Recorded:21Nov2013) to Recorded Dispense: 0 Days ; #: Sufficient TABS; Refill: 0; MARK = N; Record; Last Updated By: Gemma Acosta; 03/27/2015 10:02:26 AM 2. HydrOXYzine Pamoate 50 MG Oral Capsule; TK ONE C PO TID; Therapy: 01Feb2012 to Recorded Dispense: 30 Days ; #:90 CAPS; Refill: 0; MARK = N; Record; Last Updated By: Adelaida Guzman; 03/27/2015 10:02:26 AM 3. Ibuprofen 600 MG Oral Tablet; TK 1 T PO PO TID PRN WITH FOOD; Therapy: 26Jun2012 to Recorded Dispense: 20 Days ; #:60 TABS; Refill: 0; MARK = N; Record; Last Updated By: Adelaida Guzman; 11/23/2012 8:57:38 AM 4. Metoprolol Succinate ER 100 MG Oral Tablet Extended Release 24 Hour; TK ONE T PO D; Therapy: [id number] to Recorded Dispense: 90 Days ; #:90 TB24; Refill: 0; MARK = N; Record; Last Updated By: Adelaida Guzman; 03/27/2015 10:02:26 AM 5. TraZODone HCl - 100 MG Oral Tablet; TK 1 T PO QHS; Therapy: 01Feb2012 to Recorded Dispense: 30 Days ; #:30 TABS; Refill: 0; MARK = N; Record; Last Updated By: Adelaida Guzman; 03/27/2015 10:02:26 AM 6. Viagra 50 MG Oral Tablet; TAKE 1 TABLET Daily PRN; Therapy: 03Jan2014 to (Evaluate:27Jan2014); Last Rx:03Jan2014 Ordered Rx By: Harish Pitt; Dispense: 6 Days ; #:6 Tablet; Refill: 3; For: Male erectile disorder of organic origin; MARK = N; Print Rx; Last Updated By: Argelia Bailey; 03/27/2015 10:02:26 AM 7. Vistaril 25 MG Oral Capsule; Therapy: (Recorded:21Nov2013) to Recorded Dispense: 0 Days ; #: Sufficient CAPS; Refill: 0; MARK = N; Record; Last Updated By: Gemma Acosta; 03/27/2015 10:02:26 AM 8. Xarelto 10 MG Oral Tablet; TK 1 T PO QD; Therapy: 24Jan2013 to Recorded Dispense: 14 Days ; #:14 TABS; Refill: 0; MARK = N; Record; Last Updated By: Vee Ernst; 03/27/2015 10:02:26 AM Allergies 1. Lisinopril TABS Recorded By: Argelia Bailey; 03/27/2015 10:02:27 AM 2. Penicillins Recorded By: Shari Nichols; 06/11/2012 12:14:24 PM Vitals Recorded: [id number] 10:01AM Temperature 98 F Systolic 180 Diastolic 130 Height 5 ft 9 in Weight 265 [...] no masses. (prostate is approximately 30 cc of volumeand benign feeling) Digital rectal exam of seminal vesicles: Normal size, no masses. Anus, perineum, and rectum: Normal. Chest Inspection of breasts: Normal and no dimpling or skin changes noted. Abdomen Abdomen: Non-tender, no masses. Liver and spleen: No hepatomegaly or splenomegaly. Examination for hernias: Normal. Lymphatic Palpation of lymph nodes in other areas: No lymphadenopathy. Psychiatric Orientation to person, place and time: Normal. Mood and affect: Normal. Results/Data *Urine Dip Siemens Machine Read Strip In Office [id number] 10:06AM Harish Pitt Test Name Result Flag Reference Specific [place] 1.010 1.02 - 1.03 Leukocyte Esterase Negative Nitrite Negative pH 9 5.0 - 7.0 Protein Negative Glucose Negative Ketones Negative Blood Negative Bilirubin Negative Urobilinogen Negative PSA is 1.7. Assessment BPH Erectile dysfunction Plan followup in one year with a previsit PSA. Signatures Electronically signed by : Harish Pitt M.D.; Mar 27 2015 11:04AM CORPORATE ACCOUNTANT (Author) documented in this encounter Plan of Treatment Not on file documented as of this encounter Procedures Procedure Name Priority Date/Time Associated Diagnosis Comments URINALYSIS AUTO DIP Routine 03/27/2015 1 0:06 AM CDT documented in this encounter Results * URINALYSIS AUTO DIP (03/27/2015 10:06 AM CDT) SPECIFIC GRAVITY (U) 1.010 1.02 - 1.03 [facility] TO EPIC CONVERSION LEUKOCYTES (U) Negative [facility] OUP TO EPIC CONVERSION NITRITES Negative [facility] T O EPIC CONVERSION PH (U) 9 5.0 - 7.0 [facility] T O EPIC CONVERSION PROTEIN (ELP) (U) Negative [facility] TO EPIC CONVERSION GLUCOSE Negative [facility] T O EPIC CONVERSION KETONE (U) Negative [facility] TO EPIC CONVERSION BLOOD (U) Negative [facility] T O EPIC CONVERSION BILIRUBIN (U) Negative [facility] UP TO EPIC CONVERSION UROBILINOGEN Negative [facility] P TO EPIC CONVERSION 03/27/2015 10:0 6 AM CDT 03/27/2015 10:06 AM CDT Harish Pitt MD URINE ORDERABLES Final Result [facility] TO EPIC CONVERSION documented in this encounter Visit Diagnoses Not on filedocumented in this encounter Care Teams Clinical Psychology Professor Relationship Specialty Start Date End Date Amilcar Osorio MD [address] [address] PCP - General 05/01/17 09/04/19 , Generic Conversion, PCP - General 10/29/13 7 documented as of this encounter
--- OUTSIDE RECORDS SUMMARY | 2024-10-30 06:54 | XMS_ITS | Encounter Summary ---
Author Organization [facility] Address [address] [place] [address]. [place], [place] [address] [place] [address] Care Team Providers Care Chucking Machine Operator Name Role Phone Amilcar Osorio MD Primary Care Provider [phone] Md Generic Conversion Primary Care Provider Unavailable [...] Care Team (Late st Contact Info) Description 12/10/[address] [place] [address] [place] bag[place], [place] [address] Social History Tobacco Use Types Packs/Day Years Used Date Smoking Tobacco: Never Assessed Sex and Gender Information Value Date Recorded Sex Assigned at Not on file Legal Sex Male 11:29 PM CDT Gender Identity Not on file Sexual Orientation Not on file documented as of this encounter Plan of Treatment Not on file documented as of this encounter Visit Diagnoses Diagnosis Pain in joint, lower leg documented in this encounter Care Teams Chucking Machine Operator Relationship Specialty Start Date End Date Amilcar Osorio MD [address] [place] [address] PCP - General 05/01/17 09/04/19 Md, Generic [...]
--- OUTSIDE RECORDS SUMMARY | 2024-10-30 06:54 | XMS_ITS | Encounter Summary ---
Author Organization [facility] Address [address] [place] [address]. [place], [place] [address] [place] [address] Care Team Providers Care Grain Manager Name Role Phone Amilcar Osorio MD Primary Care Provider [phone] Encounter Details Date Type Department Care Team (Late st Contact Info) Description 03/22/2018 9:07 AM CDT - 03/22/2018 9:51 AM CDT Hospital Encounter [facility] Diagnostic Imaging [place], [place] [id number] Amilcar Osorio MD [address] [facility] [address] [place] [phone] Discharge Disposition: Home or Self Care (Routine [...] Name Priority Date/Time Associated Diagnosis Comments XR KNEE LT 2V Routine 03/22/2018 9:34 AM CDT Left hip pain XR HIP LT 2V Routine 03/22/2018 9:34 AM CDT Left hip pain documented in this encounter Results * XR KNEE LT 2V (03/22/2018 9:34 AM CDT) Anatomical Region Laterality Modality Knee Radiographic Joann ging 03/22/2018 9:46 AM CDT Impressions 03/22/2018 9:47 AM CDT =====IMPRESSION:===== Moderate tricompartment arthritis left knee. Small joint effusion. Narrative 03/22/2018 9:47 AM CDT Examination: Left knee 2 views Exam date/time: 03/22/2018 9:18 AM Reason For Exam: ??pain ? Chronic left knee pain. Arthritis. No injury. Comparison: None Technique: AP and lateral views of the left knee were obtained. Findings: Narrowing of the anterior and lateral joint spaces. Marginal spurs all 3 joint spaces. Small joint effusion. No fracture. Vascular calcifications posteriorly. Procedure Note Jose Basilio MD - 03/22/2018 Examination: Left knee 2 views Exam date/time: 03/22/2018 9:18 AM Reason For Exam: pain Chronic left knee pain. Arthritis. No injury. Comparison: None Technique: AP and lateral views of the left knee were obtained. Findings: Narrowing of the anterior and lateral joint spaces. Marginal spurs all 3 joint spaces. Small joint effusion. No fracture. Vascular calcifications posteriorly. =====IMPRESSION:===== Moderate tricompartment arthritis left knee. Small joint effusion. Amilcar Osorio MD GENERAL IMAGING Final Result * XR HIP LT 2V (03/22/2018 9:34 AM CDT) Anatomical Region Laterality Modality Hip Radiographic Joann ging 03/22/2018 9:45 AM CDT Impressions 03/22/2018 9:46 AM CDT =====IMPRESSION:===== Stable arthritis left hip and left sacroiliac joint. Narrative 03/22/2018 9:46 AM CDT Examination: Left hip 2 views Exam date/time: 03/22/2018 9:18 AM Reason For Exam: ??pain ? Left hip pain. No injury. Comparison: Left hip x-rays 11/09/2016. Technique: AP and frog views of the left hip were obtained. Findings: No fracture or dislocation. Arthritic changes left hip and left sacroiliac joint. No lytic or blastic lesion. Procedure Note Jose Basilio MD - 03/22/2018 Examination: Left hip 2 views Exam date/time: 03/22/2018 9:18 AM Reason For Exam: pain Left hip pain. No injury. Comparison: Left hip x-rays 11/09/2016. Technique: AP and frog views of the left hip were obtained. Findings: No fracture or dislocation. Arthritic changes left hip andleft sacroiliac joint. No lytic or blastic lesion. =====IMPRESSION:===== Stable arthritis left hip and left sacroiliac joint. Amilcar Osorio MD GENERAL IMAGING Final Result documented in this encounter Visit Diagnoses Diagnosis Left hip pain Pain in joint, pelvic region and thigh documented in this encounter Care Teams Grain Manager Relationship Specialty Start Date End Date Amilcar Osorio MD [address] [place] [address] PCP - General 05/01/17 09/04/19 documented as of this encounter
--- OUTSIDE RECORDS SUMMARY | 2024-10-30 06:54 | XMS_ITS | Encounter Summary ---
Author Organization [facility] Address [address] [place] [address]. [place], [place] [address] [place] [address] Care Team Providers Care Earth Science Professor Name Role Phone Amilcar Osorio MD Primary Care Provider [phone] Reason for Referral * (Routine) - Closed Specialty Diagnoses / Procedures Referred By Florentino lowe Referred To Contact Diagnoses Epididymal cyst Procedures US TESTICULAR Gina Fleming APNP Phone: tel: fax: Referral ID Status Reason Start Date Expiration Date Visits Re quested Visits Authorized [id number] Closed 11/17/2017 12/17/2018 1 1 Reason for Visit * (Routine) - Closed Specialty Diagnoses / Procedures Referred By Florentino lowe Referred To Contact Diagnoses Epididymal cyst Procedures US TESTICULAR Gina Fleming APNP Phone: tel: fax: Referral ID Status Reason Start Date Expiration Date Visits Re quested Visits Authorized [id number] Closed 11/17/2017 12/17/2018 1 1 Encounter Details Date Type Department Care Team (Latest Contact Info) Description 01/23/2018 10:00 AM CDT - 01/23/2018 11:59 PM CDT Hospital Encounter [facility] Ultrasound [address] [facility] [place] [address] Gina Fleming APNP [address] [place] [address] Discharge Disposition: Home or Self Care (Routine [...] Associated Diagnosis Comments US TESTICULAR Routine 01/23/2018 10:59 AM CDT Epididymal cyst documented in this encounter Results * US TESTICULAR (01/23/2018 10:59 AM CDT) Anatomical Region Laterality Modality Pelvis Ultrasound 01/23/2018 12:5 4 PM CDT Impressions 01/23/2018 1:00 PM CDT =====IMPRESSION:===== No right testicular mass or torsion. Right epididymal head cyst measuring up to 7.5 mm, is relatively stable. Septated or bilobed cyst left testicle inferior pole. Measures up to 1.07 cm. This has decreased in size. Septation appears thinner. Less internal echoes. 2 left epididymal head cysts noted. Largest cyst measures up to 1.3 cm. Small right hydrocele. Narrative 01/23/2018 1:00 PM CDT EXAMINATION: Scrotum ultrasound EXAM DATE/TIME: [...] No inguinal or scrotal hernia is seen. Procedure Note Jose Basilio MD - 01/23/2018 EXAMINATION: Scrotum ultrasound EXAM DATE/TIME: 01/23/2018 10:18 [...] documented in this encounter Visit Diagnoses Diagnosis Epididymal cyst Other specified disorder of male genital organs documented in this encounter Care Teams Earth Science Professor Relationship Specialty Start Date End Date Amilcar Osorio MD [address] [place] [address] PCP - General 05/01/17 09/04/19 documented as of this encounter
--- OUTSIDE RECORDS SUMMARY | 2024-10-30 06:54 | XMS_ITS | Encounter Summary ---
Author Organization [facility] Address [address] [place] [address]. [place], [place] [address] [place] [address] Care Team Providers Care Client Support Representative Name Role Phone Amilcar Osorio MD Primary Care Provider [phone] Encounter Details Date Type Department Care Team (Late st Contact Info) Description 02/05/2018 Orders Only [facility] [place] [address] Gina Fleming APNP [address] [place] [address] Social History Tobacco Use Types Packs/Day Years Used Date Smoking Tobacco: Never Assessed Sex and Gender Information Value Date Recorded Sex Assigned at Not on file Legal Sex Male 11:29 PM CDT Gender Identity Not on file Sexual Orientation Not on file documented as of this encounter Plan of Treatment Not on file documented as of this encounter Results * PROSTATE SPECIFIC ANTIGEN,TOTAL (02/05/2018 10:38 AM CDT) PSA 0.62 <4.00 NG/ML 02/05/2018 4:19 PM CDT [facility] Comment: Test was performed using the Siemens method. ??Results obtained with other assay methods or kits cannot be used interchangeably with results obtained by the Siemens method. 02/05/2018 10:3 8 AM CDT G[facility] Fleming [facility] Final Result [facility] [address] [place] [address], documented in this encounter Visit Diagnoses Diagnosis Elevated prostate specific antigen (PSA) documented in this encounter Care Teams Client Support Representative Relationship Specialty Start Date End Date Amilcar Osorio MD [address] [place] [address] PCP - General 05/01/17 09/04/19 documented as of this encounter
--- OUTSIDE RECORDS SUMMARY | 2024-10-30 06:54 | XMS_ITS | Encounter Summary ---
Author Organization [facility] Address [address] [place] [address]. [place], [place] [address] [place] [address] Care Team Providers Care Electric Tool Repairer Name Role Phone Amilcar Osorio MD Primary Care Provider [phone] Md Generic Conversion Primary Care Provider Unavailable [...] (Late st Contact Info) Description 01/21/2013 Abstract [facility] Medical Group Multispecialty Care - [facility] [address] [facility], [address] [place] [id number] [place]ust[place] boss, [address] [address] Social History Tobacco Use Types [...] on filedocumented in this encounter Care Teams Electric Tool Repairer Relationship Specialty Start Date End Date Amilcar Osorio MD [address] [place] [address] PCP - General 05/01/17 09/04/19 , Generic Conversion, MD PCP - General 10/29/13 7 Md, Generic Conversion, MD PCP - General 09/09/1310/28 Md, Generic Conversion, MD PCP - General 05/20/1309/08 Md, Generic Conversion, PCP - General 03/28/13 Md, [...]
--- OUTSIDE RECORDS SUMMARY | 2024-10-30 06:54 | XMS_ITS | Encounter Summary ---
Author Organization [facility] Address [address] [place] [address]. [place], [place] [address] [place] [address] Care Team Providers Care Mini Bar Attendant Name Role Phone Amilcar Osorio MD Primary Care Provider [phone] Encounter Details Date Type Department Care Team (Latest Contact Info) Description 01/26/2018 Abstract [facility] Medical Group Social History Tobacco Use [...] on filedocumented in this encounter Care Teams Mini Bar Attendant Relationship Specialty Start Date End Date Amilcar Osorio MD [address] [facility], [facility] [address] [place] [id number] PCP - General 05/01/17 09/04/19 documented as of this encounter
--- OUTSIDE RECORDS SUMMARY | 2024-10-30 06:54 | XMS_ITS | Encounter Summary ---
Author Organization [facility] Address [address] [place] [address]. [place], [place] [address] [place] [address] Care Team Providers Care Indirect Sales Exec Name Role Phone Amilcar Osorio MD Primary Care Provider [phone] Encounter Details Date Type Department Care Team (Latest Contact Info) Description 11/07/2017 Abstract [facility] Medical Group Social History Tobacco Use Types Packs/Day Years Used Date Smoking Tobacco: Never Assessed Sex and Gender Information Value Date Recorded Sex Assigned at Not on file Legal Sex Male 11:29 PM CDT Gender Identity Not on file Sexual Orientation Not on file documented as of this encounter Progress Notes * Jerry Dempsey Md, MD - 11/07/2017 2:51 PM CST Message Message: Patient called to see if he needs an apt he called last week. He was suppose to get a testicular ultrasound ordered by his primary care for a mass 11/07/17 he rescheduled it to 11/10/17. I informed him he will need to have it done and sent to us so we can show Dr. Pitt to see what it shows. Signatures Electronically signed by : Shari Nichols MA; Nov 07 2017 2:54PM SLEEVE FIXER (Author) documented in this encounter Plan of Treatment Not on file documented as of this encounter Visit Diagnoses Not on filedocumented in this encounter Care Teams Indirect Sales Exec Relationship Specialty Start Date End Date Amilcar Osorio MD [address] [address] PCP - General 05/01/17 09/04/19 documented as of this encounter
--- OUTSIDE RECORDS SUMMARY | 2024-10-30 06:54 | XMS_ITS | Encounter Summary ---
Author Organization [facility] Address [address] [place] [address]. [place] [address] [place] [address] Care Team Providers Care Pin Inserter Name Role Phone Amilcar Osorio MD Primary Care Provider [phone] Md Generic Conversion Primary Care Provider Unavailable Md Generic Conversion Primary Care Provider Unavailable Md Generic Conversion Primary Care Provider Unavailable Md Generic Conversion Primary Care Provider Unavailable Encounter Details Date Type Department Care Team (Late st Contact Info) Description 04/29/2013 Abstract [facility] Medical Group Multispecialty Care - [facility] [address] [facility], [address] [place] [address] Rusty Mcfarlane, [place] [address] Social History Tobacco Use Types Packs/Day Years [...] on filedocumented in this encounter Care Teams Pin Inserter Relationship Specialty Start Date End Date Amilcar Osorio MD [address] [facility], [address] [address] PCP - General 05/01/17 09/04/19 , Generic Conversion, MD PCP - General 10/29/13 7 Md, Generic Conversion, MD PCP - General 09/09/1310/28 , Generic Conversion, MD PCP - General 05/20/1309/08 , Generic Conversion, MD PCP - General 03/28/13 documented as of this encounter
--- OUTSIDE RECORDS SUMMARY | 2024-10-30 06:54 | XMS_ITS | Encounter Summary ---
Author Organization [facility] Address [address] [place] [address]. [place], [place] [address] [place] [address] Care Team Providers Care Gelatin Plant Supervisor Name Role Phone Amilcar Osorio MD Primary Care Provider [phone] Jerry Rodriges MD Primary Care Provider Unavailable Jerry Rodriges MD Primary Care Provider Unavailable Encounter Details Date Type Department Care Team (Late st Contact Info) Description 09/09/2013 Emergency [facility] [place] [address] Romelia Churchill MD Social History Tobacco Use Types Packs/Day Years Used Date Smoking Tobacco: Never Assessed Sex and Gender Information Value Date Recorded Sex Assigned at Not on file Legal Sex Male 11:29 PM CDT Gender Identity Not on file Sexual Orientation Not on file documented as of this encounter Plan of Treatment Not on file documented as of this encounter Visit Diagnoses Diagnosis Pneumonia due to infectious organism documented in this encounter Care Teams Gelatin Plant Supervisor Relationship Specialty Start Date End Date Amilcar Osorio MD [address] [facility], [address] [address] PCP - General 05/01/17 09/04/19 Jerry Rodriges MD PCP - General 10/29/13 7 Jerry Rodriges MD PCP - General 09/09/1310/28 documented as of this encounter
--- OUTSIDE RECORDS SUMMARY | 2024-10-30 06:54 | XMS_ITS | Encounter Summary ---
Author Organization [facility] Address [address] [place] [address]. [place], [place] [address] [place] [address] Care Team Providers Care Driller'S Assistant Name Role Phone Amilcar Osorio MD Primary Care Provider [phone] Md Generic Conversion Primary Care Provider Unavailable [...] Zainab Flower MD Primary Care Provider [phone] Encounter Details Date Type Department Care Team (Late st Contact Info) Description 12/04/2012 Abstract [facility] Diagnostic [facility] [address] [place] [address] Rusty Mcfarlane, DO [facility] [address] [address] Social History Tobacco Use Types [...] leg documented in this encounter Care Teams Driller'S Assistant Relationship Specialty Start Date End Date Amilcar Osorio MD [address] [place] [address] PCP - General 05/01/17 09/04/19 Md, Generic [...] - General 12/10/12 Zainab Flower MD [address] [place] [address] PCP - General 12/04/12 12/09/12 documented as of this encounter
--- OUTSIDE RECORDS SUMMARY | 2024-10-30 06:54 | XMS_ITS | Encounter Summary ---
Author Organization [facility] Address [address] [place] [address]. [place], [place] [address] [place] [address] Care Team Providers Care Solid Die Cutter Name Role Phone Amilcar Osorio MD Primary Care Provider [phone] Jerry Rodriges MD Primary Care Provider Unavailable Encounter Details Date Type Department Care Team (Latest Contact Info) Description 01/03/2014 Abstract [facility] Social History Tobacco Use Types Packs/Day Years Used Date Smoking Tobacco: Never Assessed Sex and Gender Information Value Date Recorded Sex Assigned at Not on file Legal Sex Male 11:29 PM CDT Gender Identity Not on file Sexual Orientation Not on file documented as of this encounter Progress Notes * Jerry Dempsey Md, MD - 01/03/2014 11:17 AM CST Message Message: Pt. came into the office for a Rx for Viagra 50MG #6 with 3 refills and was given a couponfor 30% off. Plan 1. Start: Viagra 50 MG Oral Tablet; TAKE 1 TABLET Daily PRN Signatures Electronically signed by : Argelia Bailey, ; Jan 03 2014 11:32AM C APPLICATION DEVELOPER (Author) documented in this encounter Plan of Treatment Not on file documented as of this encounter Visit Diagnoses Not on filedocumented in this encounter Care Teams Solid Die Cutter Relationship Specialty Start Date End Date Amilcar Osorio MD [address] [facility] [address] [place] [address] PCP - General 05/01/17 09/04/19 , Generic Conversion, PCP - General 10/29/13 7 documented as of this encounter
--- OUTSIDE RECORDS SUMMARY | 2024-10-30 06:54 | XMS_ITS | Encounter Summary ---
Author Organization [facility] Address [address] [place] [address]. [place], [place] [address] [place] [address] Care Team Providers Care Diesel Retrofit Installer Name Role Phone Amilcar Osorio MD Primary Care Provider [phone] Jerry Rodriges MD Primary Care Provider Unavailable Encounter Details Date Type Department Care Team (Latest Contact Info) Description 01/14/2014 Abstract [facility] Medical Group Social History Tobacco Use Types Packs/Day Years Used Date Smoking Tobacco: Never Assessed Sex and Gender Information Value Date Recorded Sex Assigned at Not on file Legal Sex Male 11:29 PM CDT Gender Identity Not on file Sexual Orientation Not on file documented as of this encounter Progress Notes * Jerry Dempsey Md, MD - 01/14/2014 3:58 PM CDT Message Message: I spoke with the pt. about his Viagra Rx. I faxed paper work for him so he could get assistance paying for the medicine. It was faxed on 01-10-14 so I told the pt. to give the company about aweek and a half then call and check on it. Signatures Electronically signed by : Argelia Bailey, ; Jan 14 2014 4:00PM PULP MILL SUPERVISOR (Author) documented in this encounter Plan of Treatment Not on file documented as of this encounter Visit Diagnoses Not on filedocumented in this encounter Care Teams Diesel Retrofit Installer Relationship Specialty Start Date End Date Amilcar Osorio MD [address] [place] [address] PCP - General 05/01/17 09/04/19 , Generic Conversion, PCP - General 10/29/13 7 documented as of this encounter
--- OUTSIDE RECORDS SUMMARY | 2024-10-30 06:54 | XMS_ITS | Encounter Summary ---
Author Organization [facility] Address [address] [place] [address]. [place], [place] [address] [place] [address] Care Team Providers Care Denture Model Maker Name Role Phone Amilcar Osorio MD Primary Care Provider [phone] Md Generic Conversion Primary Care Provider Unavailable [...] (Late st Contact Info) Description 01/17/2013 Abstract [facility]ial[facility] - [facility] [address] [facility] [address] [place] [address] Eagle PassRusty boss, DO [address] [place] [id number] Social History Tobacco Use Types Packs/Day Years Used Date Smoking Tobacco: Never Assessed Sex and Gender Information Value Date Recorded Sex Assigned at Not on file Legal Sex Male 11:29 PM CDT Gender Identity Not on file Sexual Orientation Not on file documented as of this encounter Last Filed Vital Signs Vital Sign Reading Time Taken Comments Blood Pressure 122/86 01/17/2013 11:48 AM CDT Pulse 55 01/17/2013 11:48 AM CDT Temperature - - Respiratory Rate - - Oxygen Saturation - - Inhaled Oxygen Concentration - - Weight 120.2 kg (265 lb) 01/17/2013 11:48 AM CDT Height 175.3 cm (5' 9 ) 01/17/2013 11:48 AM CDT Body Mass Index 39.13 01/17/2013 11:48 AM CDT documented in this encounter Progress Notes * Rusty Mcfarlane DO - 01/17/2013 11:00 AM CDT Reason For Visit See dictated Rusty Mcfarlane DO Chronic Recheck Visit Referred By / Reason Patient was referred by Primary Care Physician Name: Dr Zainab Palmer Reason: History of Present Illness 52 y/o right hand dominant BM here preop evaluation for a R TKA 01/21/2013. Review of Systems Constitutional: negative. Eyes: negative. [...] Tablet; TK ONE T PO D; Therapy: [id number] to 3. ClonazePAM 0.5 MG Oral Tablet; TK 1 T PO TID; Therapy: 24Apr2012 to 4. CloNIDine HCl 0.2 MG Oral Tablet; TK 1 T PO TID; Therapy: 06Dec2011 to 5. Diovan 160 MG Oral Tablet; Therapy: (Recorded:[id number]) to 6. Divalproex Sodium 250 MG Oral Tablet Delayed Release; TK 1 T PO TID; Therapy: 29Giq2418 to 7. Hydrocodone-Acetaminophen 5-500 MG Oral Tablet; TAKE 1 TABLET EVERY 6 HOURS NEEDED FOR PAIN; Therapy: 28Ebn3824 to (Evaluate:28Dec2012); Last Rx:[id number] 8. Hydrocodone-Acetaminophen 7.5-325 MG Oral Tablet; TK 1 T PO Q 6 H; Therapy: 01Mar2012 to 9. HydrOXYzine Pamoate 50 MG Oral Capsule; TK ONE C PO TID; Therapy: 77Vos1532 to 10. Ibuprofen 600 MG Oral Tablet; TK 1 T PO PO TID PRN WITH FOOD; Therapy: 48Ctj8458 to 11. Losartan Potassium 100 MG Oral Tablet; TK 1 T PO D; Therapy: 01Mar2012 to 12. Metoprolol Succinate ER 100 MG Oral Tablet Extended Release 24 Hour; TK ONE T PO D; Therapy: 27Mar2012 to 13. ProAir HFA 108 (90 Base) MCG/ACT Inhalation Aerosol Solution; INL 2 PUFFS PO Q 4 TO 6 H PRN FOR SOB OR WHEEZING; Therapy: 01Mar2012 to 14. Ranitidine HCl 150 MG Oral Tablet; TK 1 T PO BID; Therapy: 01Mar2012 to 15. Remeron 30 MG Oral Tablet; Therapy: (Recorded:97Ssw9339) to 16. RisperDAL TABS; Therapy: (Recorded:[id number]) to 17. RisperiDONE 2 MG Oral Tablet; TK 1 T PO QAM AND 2 TS QPM; Therapy: 01Feb2012 to 18. Singulair 10 MG Oral Tablet; TK ONE T PO D; Therapy: 01Mar2012 to 19. TraZODone HCl 100 MG Oral Tablet; TK 1 T PO QHS; Therapy: 01Feb2012 to Allergies 1. Penicillins Vitals 17Jan2013 11:48AM Temperature 98.2 F Heart Rate 55 Systolic 122 Diastolic 86 BMI Calculated 39.25 BSA Calculated 2.33 Height 5 ft 9 in Weight 265 lb Pain Scale 5 Assessment 1. Joint Pain, Localized In The Knee Right 719.46 2. Localized Primary Osteoarthritis Of The Right Knee 715.16 Plan 1. Call if: The pain is not better in 2 days. Requested for: 17Jan2013 Signatures Electronically signed by : Rusty Mcfarlane D.O.; Jan 17 2013 1:36PM (Author) ORT WORKER documented in this encounter Plan of Treatment Not on file documented as of this encounter Visit Diagnoses Not on filedocumented in this encounter Care Teams Denture Model Maker Relationship Specialty Start Date End Date Amilcar Osorio MD [address] [place] [address] PCP - General 05/01/17 09/04/19 Md Generic ConversionMD PCP - General 10/29/13 7 Md Generic ConversionMD PCP - General 09/09/1310/28 Md Generic ConversionMD PCP - General 05/20/1309/08 Md Generic Conversion, MD PCP - General 03/28/13 [...]
--- OUTSIDE RECORDS SUMMARY | 2024-10-30 06:54 | XMS_ITS | Encounter Summary ---
Author Organization [facility] Address [address] [place] [address]. [place], [place] [address] [place] [address] Care Team Providers Care Type Bar And Segment Assembler Name Role Phone Amilcar Osorio MD Primary Care Provider [phone] Md Generic Roselyn WALTERS Primary Care Provider Unavailable Md Generic Roselyn WALTERS Primary Care Provider Unavailable Md Generic Roselyn WALTERS Primary Care Provider Unavailable Md Generic Roselyn WALTERS Primary Care Provider Unavailable Encounter Details Date Type Department Care Team (Latest Contact Info) Description 05/01/2013 Abstract [facility] Medical Group Social [...] on filedocumented in this encounter Care Teams Type Bar And Segment Assembler Relationship Specialty Start Date End Date Amilcar Osorio MD [address] [facility], [facility] [address] [place] [address] PCP - General 05/01/17 09/04/19 Md Generic ConversionMD PCP - General 10/29/13 7 Md Generic ConversionMD PCP - General 09/09/1310/28 Md Generic ConversionMD PCP - General 05/20/1309/08 Md Generic ConversionMD PCP - General 03/28/13 documented as of this encounter
--- OUTSIDE RECORDS SUMMARY | 2024-10-30 06:54 | XMS_ITS | Encounter Summary ---
Author Organization [facility] Address [address] [place] [address]. [place], [place] [address] [place] [address] Care Team Providers Care Huc Ob Name Role Phone Amilcar Osorio MD Primary Care Provider [phone] Md Generic Roselyn WALTERS Primary Care Provider [...] Department Care Team (Latest Contact Info) Description 01/09/2013 Abstract [facility] Medical [facility] Social History Tobacco Use [...] on filedocumented in this encounter Care Teams Huc Ob Relationship Specialty Start Date End Date Amilcar Osorio MD [address] [facility], [facility] [address] [place] [address] PCP - General 05/01/17 09/04/19 Md, Generic [...] Generic Conversion, MD PCP - General 12/14/12 documented as of this encounter
--- OUTSIDE RECORDS SUMMARY | 2024-10-30 06:54 | XMS_ITS | Encounter Summary ---
Author Organization [facility] Address [address] [place] [address]. [place] [address] [place] [address] Care Team Providers Care Wheel Polisher Name Role Phone Amilcar Osorio MD Primary Care Provider [phone] Jerry Rodriges MD Primary Care Provider Unavailable Jerry Rodriges MD Primary Care Provider Unavailable Encounter Details Date Type Department Care Team (Late st Contact Info) Description 10/11/2013 Abstract [facility] Physical Therapy [address] [place] [address] Jerry Rodriges MD Social History Tobacco Use Types Packs/Day [...] on filedocumented in this encounter Care Teams Wheel Polisher Relationship Specialty Start Date End Date Amilcar Osorio MD [address], [facility] [address] [place] [address] PCP - General 05/01/17 09/04/19 Jerry Rodriges MD PCP - General 10/29/13 7 Jerry Rodriges MD PCP - General 09/09/1310/28 documented as of this encounter
--- OUTSIDE RECORDS SUMMARY | 2024-10-30 06:54 | XMS_ITS | Encounter Summary ---
Author Organization [facility] Address [address] [place] [address]. [place], [place] [address] [place] [address] Care Team Providers Care Bioinformatics Technician Name Role Phone Amilcar Osorio MD Primary Care Provider [phone] Encounter Details Date Type Department Care Team (Latest Contact Info) Description 11/20/2017 Abstract [facility] Medical [facility] Social History Tobacco Use Types Packs/Day Years Used Date Smoking Tobacco: Never Assessed Sex and Gender Information Value Date Recorded Sex Assigned at Not on file Legal Sex Male 11:29 PM CDT Gender Identity Not on file Sexual Orientation Not on file documented as of this encounter Progress Notes * Generic Conversion MD Antelmo - 11/20/2017 8:33 AM CST Message Recorded as Task Date: 11/20/2017 07:38 AM, Created By: Tracey Avina Task Name: Follow Up Assigned To: -Nurse Team Regarding Patient: Josafat Calvo, Status: In Progress Comment: Tracey Avina - 20 Nov 2017 7:38 AM TASK CREATED Caller: Self; General Medical Question; insurance XTRM faxed some info over on for an auth for his meds. Do we have this? Pt stat[facility], just need auth Shari Bolden - 20 Nov 2017 8:24 AM TASK EDITED Judy working on and sent paperwork on Monday11/17/17 Referral faxed x 2. Shari Bolden - 20 Nov 2017 8:24 AM TASK IN PROGRESS Signatures Electronically signed by : Judy Villareal, ; Nov 20 2017 8:35AM AIRPORT MAINTENANCE LABORER (Author) documented in this encounter Plan of Treatment Not on file documented as of this encounter Visit Diagnoses Not on filedocumented in this encounter Care Teams Bioinformatics Technician Relationship Specialty Start Date End Date Amilcar Osorio MD [address] [place] [address] PCP - General 05/01/17 09/04/19 documented as of this encounter
--- OUTSIDE RECORDS SUMMARY | 2024-10-30 06:54 | XMS_ITS | Encounter Summary ---
Author Organization [facility] Address [address] [place] [address]. [place], [place] [address] [place] [address] Care Team Providers Care Visiting Professor Name Role Phone Amilcar Osorio MD Primary Care Provider [phone] Md Generic Conversion Primary Care Provider Unavailable [...] Md, Generic Conversion Primary Care Provider Unavailable Encounter Details Date Type Department Care Team (Late st Contact Info) Description 12/14/2012 Abstract [place] [address] [place], [address] [address] Social History Tobacco Use Types [...] examination documented in this encounter Care Teams Visiting Professor Relationship Specialty Start Date End Date Amilcar Osorio MD [address] [place] [address] PCP - General 05/01/17 09/04/19 , Generic [...] - General 02/21/13 3 Md, Generic Conversion, PCP - General 01/21/13 Md, Generic Conversion, MD PCP - General 01/17/13 Md, Generic Conversion, MD PCP - General 12/14/12 documented as of this encounter
--- OUTSIDE RECORDS SUMMARY | 2024-10-30 06:55 | XMS_ITS | Encounter Summary ---
Author Organization [facility] Address [address] [place] [address]. [place] [address] [place] [address] Care Team Providers Care Public Health Clinical Nurse Specialist Name Role Phone Amilcar Osorio MD Primary Care Provider [phone] Md Generic Roselyn WALTERS Primary Care Provider [...] Zainab Flower MD Primary Care Provider [phone] Md Generic Conversion Primary Care Provider Unavailable Zainab Flower MD Primary Care Provider [phone] Encounter Details Date Type Department Care Team (Late st Contact Info) Description 04/19/1996 Abstract [facility] [address] [place] [address] Jerry Walters MD Social History Tobacco Use Types Packs/Day [...] on filedocumented in this encounter Care Teams Public Health Clinical Nurse Specialist Relationship Specialty Start Date End Date Amilcar Osorio MD [address] [place] [address] PCP - General 05/01/17 09/04/19 Md, Generic [...] Generic Conversion, MD PCP - General 02/21/13 Md, Generic Conversion, MD PCP - General 01/21/13 Md, Generic Conversion, PCP - General 01/17/13 Md, Generic Conversion, MD PCP - General 12/14/12 Md, Generic Conversion, MD PCP - General 12/10/12 Zainab Flower MD [address] [place] [address] PCP - General 12/04/12 12/09/12 , Generic Conversion, PCP - General 01/07/11 3 Zainab Flower MD [address] [place] [address] PCP - General 12/13/10 01/06/11 documented as of this encounter
--- OUTSIDE RECORDS SUMMARY | 2024-10-30 06:55 | XMS_ITS | Encounter Summary ---
Author Organization [facility] Address [address] [place] [address]. [place], [place] [address] [place] [address] Care Team Providers Care Cost Control Analyst Name Role Phone Amilcar Osorio MD Primary Care Provider [phone] Md Generic Conversion Primary Care Provider Unavailable Md Generic Roselyn [...] Zainab Flower MD Primary Care Provider [phone] Md Generic Conversion Primary Care Provider Unavailable Zainab Flower MD Primary Care Provider [phone] Encounter Details Date Type Department Care Team (Late st Contact Info) Description 06/06/2006 [place] [address] Jerry Walters MD Social History Tobacco Use [...] on filedocumented in this encounter Care Teams Cost Control Analyst Relationship Specialty Start Date End Date Amilcar Osorio MD [address] [place] [address] PCP - General 05/01/17 09/04/19 Md, Generic [...] PCP - General 03/14/13 Md, Generic Conversion, PCP - General 03/01/13 Md, Generic Conversion, MD PCP - General 02/21/13 3 Md, Generic Conversion, MD PCP - General 01/21/13 Md, Generic Conversion, PCP - General 01/17/13 Md, Generic Conversion, MD PCP - General 12/14/12 Md, Generic Conversion, MD PCP - General 12/10/12 Zainab Flower MD [address] [place] [address] PCP - General 12/04/12 12/09/12 , Generic Conversion, PCP - General 01/07/11 3 Zainab Flower MD [address] [place] [address] PCP - General 12/13/10 01/06/11 documented as of this encounter
--- OUTSIDE RECORDS SUMMARY | 2024-10-30 06:55 | XMS_ITS | Encounter Summary ---
Author Organization [facility] Address [address] [place] [address]. [place], [place] [address] [place] [address] Care Team Providers Care Humanities And Languages Professor Name Role Phone Amilcar Osorio MD Primary Care Provider [phone] Md Generic Conversion Primary Care Provider Unavailable [...] Zainab Flower MD Primary Care Provider [phone] Md Generic Conversion Primary Care Provider Unavailable Encounter Details Date Type Department Care Team (Late st Contact Info) Description 01/07/2011 Abstract [facility] [place] [address] Jerry Rodriges MD Social History Tobacco Use [...] as of this encounter Visit Diagnoses Diagnosis Special screening for malignant neoplasms, colon documented in this encounter Care Teams Humanities And Languages Professor Relationship Specialty Start Date End Date Amilcar Osorio MD [address] [place] [address] PCP - General 05/01/17 09/04/19 Md, Generic [...] - General 12/10/12 Zainab Flower MD [address] [place] [address] PCP - General 12/04/12 12/09/12 , Generic Conversion, MD PCP - General 01/07/11 3 documented as of this encounter
--- OUTSIDE RECORDS SUMMARY | 2024-10-30 06:55 | XMS_ITS | Encounter Summary ---
Author Organization [facility] Address [address] [place] [address]. [place], [place] [address] [place] [address] Care Team Providers Care Academic Assistant Name Role Phone Amilcar Osorio MD Primary Care Provider [phone] Md Generic Conversion Primary Care Provider Unavailable [...] Zainab Flower MD Primary Care Provider [phone] Md Generic Conversion Primary Care Provider Unavailable Encounter Details Date Type Department Care Team (Late st Contact Info) Description 11/09/2011 Abstract [facility] [place], [place] [address] Harish Pitt MD [address] [address] Social History Tobacco Use Types Packs/Day Years Used Date Smoking Tobacco: Never Assessed Sex and Gender Information Value Date Recorded Sex Assigned at Not on file Legal Sex Male 11:29 PM CDT Gender Identity Not on file Sexual Orientation Not on file documented as of this encounter Plan of Treatment Not on file documented as of this encounter Visit Diagnoses Diagnosis Examination Unspecified examination documented in this encounter Care Teams Academic Assistant Relationship Specialty Start Date End Date Amilcar Osorio MD [address] [place] [address] PCP - General 05/01/17 09/04/19 Md, Generic [...] - General 12/10/12 Zainab Flower MD [address] [place] [address] PCP - General 12/04/12 12/09/12 , Generic Conversion, PCP - General 01/07/11 3 documented as of this encounter
--- OUTSIDE RECORDS SUMMARY | 2024-10-30 06:55 | XMS_ITS | Encounter Summary ---
Author Organization [facility] Address [address] [place] [address]. [place], [place] [address] [place] [address] Care Team Providers Care Forest Ecology Professor Name Role Phone Amilcar Osorio MD Primary Care Provider [phone] Md Generic Roselyn WALTERS Primary Care Provider [...] Zainab Flower MD Primary Care Provider [phone] Md Generic Roselyn WALTERS Primary Care Provider Unavailable Zainab Flower MD Primary Care Provider [phone] Encounter Details Date Type Department Care Team (Late st Contact Info) Description 08/15/2006 Emergency [facility] [place] [address] Jerry Walters MD Social History Tobacco Use [...] on filedocumented in this encounter Care Teams Forest Ecology Professor Relationship Specialty Start Date End Date Amilcar Osorio MD [address] [place] [address] PCP - General 05/01/17 09/04/19 Md, Generic [...] PCP - General 01/17/13 Md, Generic Conversion, PCP - General 12/14/12 Md, Generic Conversion, MD PCP - General 12/10/12 Zainab Flower MD [address] [place] [address] PCP - General 12/04/12 12/09/12 , Generic Conversion, PCP - General 01/07/11 3 Zainab Flower MD [address] [place] [address] PCP - General 12/13/10 01/06/11 documented as of this encounter
--- OUTSIDE RECORDS SUMMARY | 2024-10-30 06:55 | XMS_ITS | Encounter Summary ---
Author Organization [facility] Address [address] [place] [address]. [place], [place] [address] [place] [address] Care Team Providers Care Band Cutter Name Role Phone Amilcar Osorio MD Primary Care Provider [phone] Md Generic Conversion Primary Care Provider Unavailable [...] Zainab Flower MD Primary Care Provider [phone] Md Generic Conversion Primary Care Provider Unavailable Zainab Flower MD Primary Care Provider [phone] Encounter Details Date Type Department Care Team (Late st Contact Info) Description 01/04/2008 Abstract [place] [address] Jerry Walters MD Social History Tobacco Use [...] on filedocumented in this encounter Care Teams Band Cutter Relationship Specialty Start Date End Date Amilcar Osorio MD [address] [place] [address] PCP - General 05/01/17 09/04/19 Md, Generic [...] - General 12/10/12 Zainab Flower MD [address] [place] [address] PCP - General 12/04/12 12/09/12 , Generic Conversion, PCP - General 01/07/11 3 Zainab Flower MD [address] [place] [address] PCP - General 12/13/10 01/06/11 documented as of this encounter
--- OUTSIDE RECORDS SUMMARY | 2024-10-30 06:55 | XMS_ITS | Encounter Summary ---
Author Organization [facility] Address [address] [place] [address]. [place], [place] [address] [place] [address] Care Team Providers Care Pipelines Supervisor Name Role Phone Amilcar Osorio MD Primary Care Provider [phone] Md Generic Conversion Primary Care Provider Unavailable [...] Zainab Flower MD Primary Care Provider [phone] Md Generic Conversion Primary Care Provider Unavailable Encounter Details Date Type Department Care Team (Late st Contact Info) Description 12/08/2011 Abstract [facility] [address] Kris Brooke MD Social History Tobacco Use Types Packs/Day Years Used Date Smoking Tobacco: Never Assessed Sex and Gender Information Value Date Recorded Sex Assigned at Not on file Legal Sex Male 11:29 PM CDT Gender Identity Not on file Sexual Orientation Not on file documented as of this encounter Plan of Treatment Not on file documented as of this encounter Visit Diagnoses Diagnosis Shortness of breath documented in this encounter Care Teams Pipelines Supervisor Relationship Specialty Start Date End Date Amilcar Osorio MD [address] [place] [address] PCP - General 05/01/17 09/04/19 Md, Generic [...] - General 12/10/12 Zainab Flower MD [address] [place] [address] PCP - General 12/04/12 12/09/12 , Generic Conversion, MD PCP - General 01/07/11 3 documented as of this encounter
--- OUTSIDE RECORDS SUMMARY | 2024-10-30 06:55 | XMS_ITS | Encounter Summary ---
Author Organization [facility] Address [address] [place] [address]. [place], [place] [address] [place] [address] Care Team Providers Care Firearms Expert Name Role Phone Amilcar Osorio MD Primary Care Provider [phone] Md Generic Conversion Primary Care Provider Unavailable [...] Zainab Flower MD Primary Care Provider [phone] Md Generic Conversion Primary Care Provider Unavailable Encounter Details Date Type Department Care Team (Late st Contact Info) Description 12/08/2011 Abstract [facility] [place] [place] [address] Kris Brooke MD Social History Tobacco Use [...] breath documented in this encounter Care Teams Firearms Expert Relationship Specialty Start Date End Date Amilcar Osorio MD [address] [place] [address] PCP - General 05/01/17 09/04/19 Md, Generic [...] - General 12/10/12 Zainab Flower MD [address] [place] [address] PCP - General 12/04/12 12/09/12 , Generic Conversion, MD PCP - General 01/07/11 3 documented as of this encounter
--- OUTSIDE RECORDS SUMMARY | 2024-10-30 06:55 | XMS_ITS | Encounter Summary ---
Author Organization [facility] Address [address] [place] [address]. [place] [address] [place] [address] Care Team Providers Care Substitute Crossing Guard Name Role Phone Amilcar Osorio MD Primary Care Provider [phone] Generic Roselyn WALTERS Primary Care Provider [...] Zainab Flower MD Primary Care Provider [phone] Md Generic Conversion Primary Care Provider Unavailable Zainab Flower MD Primary Care Provider [phone] Encounter Details Date Type Department Care Team (Late st Contact Info) Description 04/25/1996 Abstract [facility] [address] [place] [address] Jerry Walters MD Social History Tobacco Use [...] on filedocumented in this encounter Care Teams Substitute Crossing Guard Relationship Specialty Start Date End Date Amilcar Osorio MD [address] [place] [address] PCP - General 05/01/17 09/04/19 Md, Generic [...] - General 12/10/12 Zainab Flower MD [address] [place] [address] PCP - General 12/04/12 12/09/12 , Generic Conversion, PCP - General 01/07/11 3 Zainab Flower MD [address] [place] [address] PCP - General 12/13/10 01/06/11 documented as of this encounter
--- OUTSIDE RECORDS SUMMARY | 2024-10-30 06:55 | XMS_ITS | Encounter Summary ---
Author Organization [facility] Address [address] [place] [address]. [place], [place] [address] [place] [address] Care Team Providers Care Tool Clerk Name Role Phone Amilcar Osorio MD Primary Care Provider [phone] Md Generic Conversion Primary Care Provider Unavailable [...] Zainab Flower MD Primary Care Provider [phone] Generic Conversion Primary Care Provider Unavailable Zainab Flower MD Primary Care Provider [phone] Encounter Details Date Type Department Care Team (Late st Contact Info) Description 12/13/2010 Abstract [facility] [address] [place] [id number] Zainab Flower MD [address] [place] [address] Social History Tobacco Use Types Packs/Day Years [...] leg documented in this encounter Care Teams Tool Clerk Relationship Specialty Start Date End Date Amilcar Osorio MD [address] [place] [address] PCP - General 05/01/17 09/04/19 Md, Generic [...] - General 12/10/12 Zainab Flower MD [address] [place] [address] PCP - General 12/04/12 12/09/12 , Generic Conversion, PCP - General 01/07/11 2 3 Zainab Flower MD [address] [place] [address] PCP - General 12/13/10 01/06/11 documented as of this encounter
--- OUTSIDE RECORDS SUMMARY | 2024-10-30 06:55 | XMS_ITS | Encounter Summary ---
Author Organization [facility] Address [address] [place] [address]. [place], [place] [address] [place] [address] Care Team Providers Care Employment Specialist Name Role Phone Amilcar Osorio MD Primary Care Provider [phone] Md Generic Conversion Primary Care Provider Unavailable [...] Zainab Flower MD Primary Care Provider [phone] Generic Conversion Primary Care Provider Unavailable Zainab Flower MD Primary Care Provider [phone] Encounter Details Date Type Department Care Team (Late st Contact Info) Description 01/19/2008 Abstract [place] [address] Arabella King MD [address] [place] [id number] Social History Tobacco Use Types Packs/Day Years [...] on filedocumented in this encounter Care Teams Employment Specialist Relationship Specialty Start Date End Date Amilcar Osorio MD [address] [place] [address] PCP - General 05/01/17 09/04/19 Md, Generic [...] - General 12/10/12 Zainab Flower MD [address] [place] [address] PCP - General 12/04/12 12/09/12 , Generic Conversion, PCP - General 01/07/11 3 Zainab Flower MD [address] [place] [address] PCP - General 12/13/10 01/06/11 documented as of this encounter
--- OUTSIDE RECORDS SUMMARY | 2024-10-30 06:55 | XMS_ITS | Encounter Summary ---
Author Organization [facility] Address [address] [place] [address]. [place], [place] [address] [place] [address] Care Team Providers Care Ceramics Teacher Name Role Phone Amilcar Osorio MD Primary Care Provider [phone] Md Generic Conversion Primary Care Provider Unavailable [...] Zainab Flower MD Primary Care Provider [phone] Generic Conversion Primary Care Provider Unavailable Zainab Flower MD Primary Care Provider [phone] Encounter Details Date Type Department Care Team (Late st Contact Info) Description 02/27/1994 Abstract [place] [address] Jerry Walters MD Social History Tobacco Use [...] on filedocumented in this encounter Care Teams Ceramics Teacher Relationship Specialty Start Date End Date Amilcar Osorio MD [address] [place] [address] PCP - General 05/01/17 09/04/19 Md, Generic [...] - General 12/10/12 Zainab Flower MD [address] [place] [address] PCP - General 12/04/12 12/09/12 , Generic Conversion, PCP - General 01/07/11 3 Zainab Flower MD [address] [place] [address] PCP - General 12/13/10 01/06/11 documented as of this encounter
--- OUTSIDE RECORDS SUMMARY | 2024-10-30 06:55 | XMS_ITS | Encounter Summary ---
Author Organization [facility] Address [address] [place] [address]. [place] [address] [place] [address] Care Team Providers Care Red Mud Thickener Operator Name Role Phone Amilcar Osorio MD Primary Care Provider [phone] Md Generic Roselyn WALTERS Primary Care Provider [...] Zainab Flower MD Primary Care Provider [phone] Generic Conversion Primary Care Provider Unavailable Zainab Flower MD Primary Care Provider [phone] Encounter Details Date Type Department Care Team (Late st Contact Info) Description 02/06/1998 Abstract [facility] [address] [place] [address] Jerry Walters MD Social History Tobacco Use [...] on filedocumented in this encounter Care Teams Red Mud Thickener Operator Relationship Specialty Start Date End Date Amilcar Osorio MD [address] [place] [address] PCP - General 05/01/17 09/04/19 Md, Generic [...] - General 12/10/12 Zainab Flower MD [address] [place] [address] PCP - General 12/04/12 12/09/12 , Generic Conversion, PCP - General 01/07/11 3 Zainab Flower MD [address] [place] [address] PCP - General 12/13/10 01/06/11 documented as of this encounter
--- OUTSIDE RECORDS SUMMARY | 2024-10-30 06:55 | XMS_ITS | Encounter Summary ---
Author Organization [facility] Address [address] [place] [address]. [place], [place] [address] [place] [address] Care Team Providers Care Sales Promoter Name Role Phone mAilcar Osorio MD Primary Care Provider [phone] Generic Conversion Primary Care Provider Unavailable [...] Zainab Flower MD Primary Care Provider [phone] Md Generic Conversion Primary Care Provider Unavailable Zainab Flower MD Primary Care Provider [phone] Encounter Details Date Type Department Care Team (Late st Contact Info) Description 01/06/[address] [place] [address] Marsha Mary MD [facility] [address] [place] [address] Social History Tobacco Use Types Packs/Day Years Used Date Smoking Tobacco: Never Assessed Sex and Gender Information Value Date Recorded Sex Assigned at Not on file Legal Sex Male 11:29 PM CDT Gender Identity Not on file Sexual Orientation Not on file documented as of this encounter Plan of Treatment Not on file documented as of this encounter Visit Diagnoses Diagnosis Benign essential hypertension Essential hypertension, benign documented in this encounter Care Teams Sales Promoter Relationship Specialty Start Date End Date Amilcar Osorio MD [address] [place] [address] PCP - General 05/01/17 09/04/19 Md, Generic [...] PCP - General 12/14/12 Md, Generic Conversion, PCP - General 12/10/12 Zainab Flower MD [address] [place] [address] PCP - General 12/04/12 12/09/12 , Generic Conversion, PCP - General 01/07/11 3 Zainab Flower MD [address] [place] [address] PCP - General 12/13/10 01/06/11 documented as of this encounter
--- OUTSIDE RECORDS SUMMARY | 2024-10-30 06:55 | XMS_ITS | Encounter Summary ---
Author Organization [facility] Address [address] [place] [address]. [place] [address] [place] [address] Care Team Providers Care Soldering Machine Setter Name Role Phone Amilcar Osorio MD Primary Care Provider [phone] Md Generic Roselyn WALTERS Primary Care Provider [...] Zainab Flower MD Primary Care Provider [phone] Md Generic Conversion Primary Care Provider Unavailable Zainab Flower MD Primary Care Provider [phone] Encounter Details Date Type Department Care Team (Late st Contact Info) Description 04/20/1996 Abstract [facility] [address] [place] [address] Jerry Walters MD Social History Tobacco Use [...] on filedocumented in this encounter Care Teams Soldering Machine Setter Relationship Specialty Start Date End Date Amilcar Osorio MD [address] [place] [address] PCP - General 05/01/17 09/04/19 Md, Generic [...] - General 12/10/12 Zainab Flower MD [address] [place] [address] PCP - General 12/04/12 12/09/12 , Generic Conversion, PCP - General 01/07/11 3 Zainab Flower MD [address] [place] [address] PCP - General 12/13/10 01/06/11 documented as of this encounter
--- OUTSIDE RECORDS SUMMARY | 2024-10-30 07:00 | XMS_ITS | Encounter Summary ---
Author Organization [facility] Address [address] [place] [address] Care Team Providers Care Manager Global Communications Name Role Phone Montserrat Randall APRN, CHILD MONITOR Unavailable Encounter Details Date Type Department Care Team (Late st Contact Info) Description 12/22/2020 12:15 PM RN DIABETES Rapid Evaluation [place] [facility] [address] [place] [address] Social History Tobacco Use Types Packs/Day Years Used Date Smoking Tobacco: Every Day Cigarettes 1 30 Smokeless Tobacco: Never Alcohol Use Standard Drinks/Week Comments No 0 (1 standard drink = 0.6 oz pur e alcohol) occasional Sex and Gender Information Value Date Recorded Sex Assigned at Not on file Legal Sex Male 10:54 PM CDT Gender Identity Not on file Sexual Orientation Not on file Occupation Industry Job Start Date Job End Date disabled Not on file Not on file Not on file documented as of this encounter Plan of Treatment Not on file documented as of this encounter Visit Diagnoses Not on filedocumented in this encounter Care Teams Manager Global Communications Relationship Specialty Start Date End Date Montserrat Randall APRN, CHILD MONITOR Nurse Practitioner Advanced Practice Nurse 10/21/16 documented as of this encounter
--- OUTSIDE RECORDS SUMMARY | 2024-10-30 07:00 | XMS_ITS | Encounter Summary ---
Author Organization [facility] Address [address] [place] [address] Care Team Providers Care Restaurant Team Member Name Role Phone Montserrat Randall APRN, INDUCTION MACHINE OPERATOR Unavailable Encounter Details Date Type Department Care Team (Late st Contact Info) Description 12/22/2020 Lab Requisition [facility] Mobile Testing [address] [place] [address] Morris Perez MD [address] [place] [address] [place] [address] Social History Tobacco Use Types Packs/Day Years [...] Procedure Name Priority Date/Time Associated Diagnosis Comments SARS-COV-2 PCR [facility] ONLY Routine 12/22/2020 12:10 PM INJECTION MOLD TECHNICIAN documented in this encounter Visit Diagnoses Not on filedocumented in this encounter Care Teams Restaurant Team Member Relationship Specialty Start Date End Date Montserrat Randall APRN, INDUCTION MACHINE OPERATOR Nurse Practitioner Advanced Practice Nurse 10/21/16 documented as of this encounter
--- OUTSIDE RECORDS SUMMARY | 2024-10-30 07:00 | XMS_ITS | Encounter Summary ---
Author Organization [facility] Address [address] [place] [address] Care Team Providers Care Foundry Process Engineer Name Role Phone Montserrat Randall APRN, SUPPLY OFFICER Unavailable Encounter Details Date Type Department Care Team (Late st Contact Info) Description 10/27/2020 3:00 PM CRECHE ATTENDANT Rapid Evaluation [place] [facility] Mobile Testing [address] [place] [address] Social History Tobacco Use Types Packs/Day Years [...] on filedocumented in this encounter Care Teams Foundry Process Engineer Relationship Specialty Start Date End Date Montserrat Randall APRN, SUPPLY OFFICER Nurse Practitioner Advanced Practice Nurse 10/21/16 documented as of this encounter
--- OUTSIDE RECORDS SUMMARY | 2024-10-30 07:00 | XMS_ITS | Encounter Summary ---
Author Organization [facility] Address [address] [place] [address] Care Team Providers Care Telegraph Mechanic Name Role Phone Montserrat Randall APRN, CNP Unavailable Encounter Details Date Type Department Care Team (Late st Contact Info) Description 10/27/2020 Lab Requisition [facility] Mobile Testing [address] [place] [address] [place] [address] [place] [address] Social History Tobacco Use Types Packs/Day Years [...] Diagnosis Comments SARS-COV-2 PCR [facility] ONLY Routine 10/27/2020 2:52 PM WORK TICKET DISTRIBUTOR documented in this encounter Visit Diagnoses Not on filedocumented in this encounter Care Teams Telegraph Mechanic Relationship Specialty Start Date End Date Montserrat Randall APRN, PLAYGROUND OFFICIAL Nurse Practitioner Advanced Practice Nurse 10/21/16 documented as of this encounter
--- OUTSIDE RECORDS SUMMARY | 2024-10-30 07:00 | XMS_ITS | Clinical Summary ---
Author Organization [facility] Address [address], [facility] [address] [place] [address] Phone Care Team Providers Care Director Medicare Sales Name Role Phone Patito Randalli Israel AUTO PAINTER HELPER, HOUSEKEEPING ROOM INSPECTOR Unavailable Allergies Active Allergy Reactions Criticality Noted Date Comments Penicillin G Swelling 09/30/2015 Medications carvedilol (COREG) 25 MG Tablet Take 25 mg by mouth 2 times daily. Active spironolactone (ALDACTONE) 25 MG Tablet Take 25 mg by mouth daily. 2 7 Active albuterol (VENTOLIN HFA) 108 (90 Base) MCG/ACT Aerosol Solution take 2 Puffs by inhalation every 6 hours as needed for Wheezing. Active baclofen (LIORESAL) 10 MG Tablet Take 10 mg by mouth 4 times daily. Active buPROPion (WELLBUTRIN) 150 MG XL tablet Take 150 mg by mouth every morning. Active hydrOXYzine (VISTARIL) 50 MG Capsule Take 50 mg by mouth 2 times daily as needed for Itching. Active latanoprost (XALATAN) 0.005 % SolutionIndicat ions:both eyes Place 1 Drop in affected eye(s) nightly. Active OXcarbazepine (TRILEPTAL) 600 MG Tablet Take 600 mg by mouth 2 times daily. Active umeclidinium (INCRUSE ELLIPTA) 62.5 MCG/INH AEROSOL POWDER, BREATH ACTIVATED take 2 Puffs by inhalation daily. Active nicotine (NICODERM CQ) 14 MG/24HR PATCH 24 HR 1 Patch by Transdermal route every 24 hours. 30 Patch 8 Active promethazine-co deine (PHENERGAN WITH CODEINE) 6.25-10 MG/5ML Syrup Take 5 mL by mouth every 12 hours. 280 mL 8 Active predniSONE (DELTASONE) 10 MG Tablet Take 4 Tabs by mouth daily. 30 Tab 8 Active Active Problems Problem Noted Date Diagnosed Date COPD exacerbation 11/06/2017 Dilutional hyponatremia 11/06/2017 HTN (hypertension), benign 11/06/2017 Tobacco abuse 11/06/2017 Family History Medical History Relation Name Comments Lung Cancer Brother w mets Heart Attack Father Prostate Cancer Maternal Uncle Cancer Mother colon w mets Liver Cancer Mother Diabetes Other Relation Name Status Comments Brother Father Maternal Uncle Mother Other Social History Tobacco Use Types Packs/Day Years [...] file Not on file Not on file Last Filed Vital Signs Vital Sign Reading Time Taken Comments Blood Pressure 142/74 11/06/2017 2:41 PM CORPORATE PHYSICAL SECURITY SUPERVISOR Pulse 77 11/06/2017 2:41 PM CORPORATE PHYSICAL SECURITY SUPERVISOR Temperature 36.1 ??C (97 ??F) 11/06/2017 2:41 PM CORPORATE PHYSICAL SECURITY SUPERVISOR Respiratory Rate 18 11/06/2017 2:41 PM CORPORATE PHYSICAL SECURITY SUPERVISOR Oxygen Saturation 99% 11/06/2017 8:00 AM CORPORATE PHYSICAL SECURITY SUPERVISOR Inhaled Oxygen Concentration - - Weight 113.4 kg (250 lb) 11/03/2017 6:25 PM CORPORATE PHYSICAL SECURITY SUPERVISOR Height 175.3 cm (5' 9 ) 11/03/2017 6:25 PM CORPORATE PHYSICAL SECURITY SUPERVISOR Body Mass Index 36.92 11/03/2017 6:25 PM CORPORATE PHYSICAL SECURITY SUPERVISOR Plan of Treatment Health Maintenance Due Date Last Done Comments Hepatitis C Virus (HCV) Screening 1961 Pneumococcal Immunization Combined (1 of 2 - PCV) 1967 Pneumococcal Immunization (50+ years) (1 of 2 - PCV) 1980 Cologuard 2011 Immunochemical Fecal Occult Blood 2011 Zoster Immunization (1 of 2) 2011 PSA Discussion 2016 Respiratory Syncytial Virus (RSV) Immunization (Adult) (1 - Risk 60-74 years 1-dose series) 2021 Influenza Immunization (#1) 06/30/202403/2020, 07/17/2017, 09/29/2016, Additional history exists SARS-COV-2 Immunization ( season) 2024 09/14/2021, 01/05/2021 Colonoscopy 09/30/2025 09/30/2015 Colorectal Cancer Screening 09/30/2025 09/30/2015 DTaP/Tdap/Td Immunization Discontinued 07/17/2017 TdaP Immunization Completed 07/17/2017 Lung Cancer Screening Discontinued 11/03/2017 Hepatitis B Immunization Aged Out No longer eligible based on patient's age to complete this topic Meningococcal Immunization (ACWY) Aged Out No longer eligible based on patient's age to complete this topic Rotavirus Immunization Aged Out No lo nger eligible based on patient's age to complete this topic Procedures Procedure Name Priority Date/Time Associated Diagnosis Comments CT CHEST W/O CONTRAST STAT 11/03/2017 11:30 PM CORPORATE PHYSICAL SECURITY SUPERVISOR from Last 3 Months or Most Recently Relevant to Health Maintenance Results * CT CHEST W/O CONTRAST (11/03/2017 11:30 PM CORPORATE PHYSICAL SECURITY SUPERVISOR) Anatomical Region Laterality Modality Chest N/A Computed Tomogra phy 11/04/2017 12:2 4 AM CORPORATE PHYSICAL SECURITY SUPERVISOR Impressions 11/04/2017 12:28 AM CORPORATE PHYSICAL SECURITY SUPERVISOR IMPRESSION: 1. ??A few nonspecific scattered ground-glass infiltrates in the bilateral upper lobes, which may represent pneumonia. 2. ??Mild paraseptal emphysema. Automated exposure control was used as a dose optimization technique for this examination. Narrative 11/04/2017 12:28 AM CORPORATE PHYSICAL SECURITY SUPERVISOR EXAMINATION: ??CT chest without contrast HISTORY: ??Cough, shortness of breath, and wheezing today. ??Chest pain today. COMPARISON: ??MRI abdomen November 24, 2016 and Chest X-ray: ??December 22, 2015 TECHNIQUE: ??Axial CT images through the chest were obtained without IV contrast. ?? Coronal and sagittal reconstructed images were obtained and reviewed. FINDINGS: ??There are is mild dependent atelectasis in the bilateral lower lobes. ??There are a few scattered ground-glass infiltrates seen in the bilateral upper lobes. ??There is mild bronchiectasis seen in all lung lobes. ??The central airways are patent. ??No consolidation, pleural effusion, or pneumothorax. ??There is mild paraseptal emphysema. ??No thoracic aortic aneurysm or intramural hematoma. ??No pericardial effusion. ??No mediastinal or hilar lymphadenopathy. ??The upper abdomen demonstrates a 2.3 cm x 2.2 cm exophytic left renal cyst, which is not significantly changed since MRI abdomen November 24, 2016. ??Old left eighth, ninth, tenth, and eleventh rib fracture deformities are seen. THIS IS AN ELECTRONICALLY VERIFIED REPORT 11/04/2017 12:24 AM: ??Sukh Canseco M.D. ? Sukh Canseco M.D. Radiologist YUMIKO:yumiko APO Procedure Note Sukh Canseco MD - 11/04/2017 EXAMINATION: CT chest without contrast HISTORY: Cough, shortness of breath, and wheezing today. Chest pain today. COMPARISON: MRI abdomen November 24, 2016 and Chest X-ray: December 22, 2015 TECHNIQUE: Axial CT images through the chest were obtained without IV contrast. Coronal and sagittal reconstructed images were obtained and reviewed. FINDINGS: There are is mild dependent atelectasis in the bilateral lower lobes. There are a few scattered ground-glass infiltrates seen in the bilateral upper lobes. There is mild bronchiectasis seen in all lung lobes. The central airways are patent. No consolidation, pleural effusion, or pneumothorax. There is mild paraseptal emphysema. No thoracic aortic aneurysm or intramural hematoma. No pericardial effusion. No mediastinal or hilar lymphadenopathy. The upper abdomen demonstrates a 2.3 cm x 2.2 cm exophytic left renal cyst, which is not significantly changed since MRI abdomen November 24, 2016. Old left eighth, ninth, tenth, and eleventh rib fracture deformities are seen. THIS IS AN ELECTRONICALLY VERIFIED REPORT 11/04/2017 12:24 AM: Ellyn Epperson M.D. Radiologist YUMIKO:yumiko APO IMPRESSION: 1. A few nonspecific scattered ground-glass infiltrates in the bilateral upper lobes, which may represent pneumonia. 2. Mild paraseptal emphysema. Automated exposure control was used as a dose optimization technique for this examination. Dave Howe MD IMG CT ORDERABLES Final Resul t from Last 3 Months or Most Recently Relevant to Health Maintenance Insurance MEDICAID [facility] Advance Directives * Full Code (Latest Code Status on File) Date Activated Date Inactivated Comments 11/04/2017 9:36 AM 11/06/2017 6:27 PM CPR-Full Treat ment: FULL ARREST: Attempt Resuscitation/CPR wit intubation and mechanical ventilation. PRE-ARREST: Use entire range of life support measures to stabilize the patient. Care Teams Director Medicare Sales Relationship Specialty Start Date End Date Montserrat Randall, AUTO PAINTER HELPER, HOUSEKEEPING ROOM INSPECTOR Nurse Practitioner Advanced Practice Nurse 10/21/16
--- OUTSIDE RECORDS SUMMARY | 2024-10-30 07:02 | XMS_ITS | Encounter Summary ---
Author Organization [facility] Address [address] [place] [address] Care Team Providers Care Proof Machine Operator Name Role Phone Matthew Mccabe MD Primary Care Prov ider Stan Meza MD Unavailable [phone] Reason for Visit * Episode Based Medications (Routine) - Authorized Specialty Diagnoses / Procedures Referred By Contac t Referred To Contact Diagnoses 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) Stan Meza MD [address] [place] [address] Phone: tel: fax: [facility] [address] [facility] [address] [place] [address] Referral ID Status Reason Start Date Expiration Date V isits Requested Visits Authorized [id number] Authorized 08/20/2024 02/06/2025 1 50 Encounter Details Date Type Department Care Team (Late st Contact Info) Description 09/05/2024 9:30 AM CANE FLUME WATCHER Infusion [facility] [address] [facility] [address] [place] [address] 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) (Primary Dx) Social History Tobacco Use Types Packs/Day Years Used Date Smoking Tobacco: Every Day Cigarettes Passive Smoke Exposure: Past Smokeless Tobacco: Never AUDIT-C Answer Date Recorded Q1: How often do you have a drink containing alc ohol? 2-4 times a month 08/01/2024 Q2: How many drinks containi ng alcohol do you have on a typical day when you are drinking? 1 or 2 08/01/2024 Q3: How often do you have si x or more drinks on one occasion? Never 08/01/2024 Personal Safety Answer Date Recorded Have you ever been in or are you currently in a harmful physical or emotional relationship or is someone making you feel afraid or unsafe? Denies 08/29/2024 Sex and Gender Information Value Date Recorded Sex Assigned at Not on file Legal Sex Male 6:04 PM CANE FLUME WATCHER Gender Identity Not on file Sexual Orientation Not on file documented as of this encounter Progress Notes * Marshall Joann, RD - 09/05/2024 9:30 AM CST Oncology Nutrition Follow Up Note 63 y.o. with (C34.32) 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) (primary encounter diagnosis) Plan: Return Chemo Appt Request - 90 Min First treatment? No; Ordering location: [facility] Onc/Hem/BMT; Treatment location: [place] [address], Treatment Parameters, dexAMETHasone (DECADRON) preservative free solution 10 mg, ALBUMIN-BOUND PACLItaxel (ABRAXANE) 5 mg/mL syringe 210 mg, Treatment Parameters Weight: Wt Readings from Last 10 Encounters: 09/05/24 92.4 kg (203 lb 9.6 oz) 08/29/24 93 kg (205 lb) 08/29/24 93.1 kg (205 lb 3.2 oz) 08/22/24 96.8 kg (213 lb 6.5 oz) 08/22/24 95.3 kg (210 lb) 08/15/24 98.6 kg (217 lb 6.4 oz) 08/12/24 99 kg (218 lb 4.8 oz) 08/01/24 97.5 kg (215 lb) 08/01/24 97.7 kg (215 lb 6.4 oz) 07/18/24 99.3 kg (219 lb) Current BMI: 32.86 Hendrix body weight: 65.9 kg (145 lb 5.8 oz) Adjusted ideal body weight: 76.5 kg (168 lb 10.5 oz) Estimated Energy Needs: Based on: 92 kg Calories 8548-1659 kcal/day 20-25 kcal/kg Protein 92-110 g/day 1.0-1.2 g/kg Fluid 9126-9230 ml/day or Per MD 1 ml/kcal or per MD Impression: Pt reports poor appetite, states he just does not feel hungry. Pt states he usually has Ensure PlusTID, but is not eating much. Wt is down 12 lbs in past month (5% wt loss). Pt reports occasional nausea, states he is still struggling with constipation and taking miralax and stool softeners to help. Pt reports last BM was on Monday. RD encouraged small frequent meals in addition to resuming Ensure Plus TID. Pt stated he is almost out of Ensure, RD renewed voucher for 2 cases x 3 months. Diet recall: 1 Ensure Plus, 75% of salami and cheese sandwich, bag of corn chips Intervention: Patient with poor appetite: - Encourage small frequent meals and snacks with calorie dense foods - Suggest eating every 2-3 hours to improve intake - Include protein with each meal; reviewed sources - Discussed ways to add calories to meals without adding volume - Recommend Ensure Plus TID for added nutrients and protein - Reviewed need for at least 1.5L caffeine free fluids to prevent dehydration Monitoring: - Appetite / PO intake - Wt changes - S/S Encouraged pt to reach out with any nutrition needs or concerns. Joann Olivares MS, RD, LD Clinical Dietitian [phone] FLUME WATCHER documented in this encounter Nursing Notes * Fernando Perez RN - 09/05/2024 9:30 AM CST Oncology Nursing Note [facility] Josafat Calvo is a 63 y.o. male who presents for treatment cycle 1, day 8 of Abraxane. Pre-treatment Nursing Assessment Nursing Assessment LOC: Alert, Awake Constitutional: Fatigue Fatigue: Occassional Any falls since your last visit?: No Orientation: Oriented x4 Behavior: Calm Speech: Clear Language: No aphasia Vision: At baseline Peripheral Neuropathy: No Oral Mucosa Grade: Normal (0) Pt states has potential to be ?: N/A Shortness of Breath?: No Appetite: Fair Abdomen: Soft Diarrhea: No Constipation: Yes Last BM Date: 09/03/24 Additional Notes: Encounter Vitals BP: 110/72 (09/05/2024 8:00 AM) Pulse: 86 (09/05/2024 8:00 AM) Resp: 19 (09/05/2024 8:00 AM) Temp: 36.7 ??C (98.1 ??F) (09/05/2024 8:00 AM) Temp src: Oral (09/05/2024 8:00 AM) SpO2: 97 % (09/05/2024 8:00 AM) Weight: 92.4 kg (203 lb 9.6 oz) (09/05/2024 8:00 AM) Pain Loc: BACK (and chest, chronic) (09/05/2024 9:00 AM) Pain Score: 10 - Worst possible pain (reported to Oncologist in clinic today) Treatment Patient: met treatment parameters Pre blood return: Melvin Josafat Calvo tolerated treatment well. Patient was frequently observed and monitored throughout the administration of their treatment. Additional Notes: patient discharged ambulatory in stable condition. Post blood return: Brisk IV access post infusion: NS Patient Education Treatment Education: Information/teaching given to patient including fall prevention, signs and symptoms of infection, bleeding, adverse reaction, symptom management, process and procedure related totoday's visit, and when to notify MD Response: Verbalizes understanding Discharge Plan Discharge instructions given to patient. Future appointments given and reviewed with treatment plan. Discharge Mode: Ambulatory Accompanied by: Self Discharged To: Home FLUME WATCHER documented in this encounter Plan of Treatment Not on file documented as of this encounter Visit Diagnoses Diagnosis 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)- Primary documented in this encounter Administered Medications Inactive Administered Medications - up to 3 most recent administrations Medication Order MAR Action Action Date Dose Rate Site ALBUMIN-BOUND PACLItaxel (ABRAXANE) 5 mg/mL syringe 210 mg 210 mg (rounded from 211 mg = 100 mg/m2 ? 2.11 m2 Treatment Plan BSA from Recorded weight), intravenous, at 84 mL/hr, Administer over 30 Minutes, Once, On Evette 09/05/24 at 1030, For 1 dose, Do NOT use a filter during administration. Irritant with vesicant potential. ADMINISTER BY SYRINGE PUMP ONLY - NOT IV PUSH.Indications: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) New Bag 09/05/2024 10:57 AM CANE FLUME WATCHER 210 mg 84 mL/hr dexAMETHasone (DECADRON) preservative free solution 10 mg 10 mg, intravenous, Administer over 2 Minutes, Once, On Evette 09/05/24 at 1000, For 1 doseIndications: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) Given 09/05/2024 9:38 AM CANE FLUME WATCHER 10 mg documented in this encounter Orders Nursing Count Last Ordered Date First Orde red Date ONCBCN TREATMENT PARAMETERS 1 1 09/05/2024 Appointment Requests Count Last Ordered Date Fi rst Ordered Date ONCBCN RETURN CHEMO 1.5HRS 1 09/05/2024 documented in this encounter Care Teams Proof Machine Operator Relationship Specialty Start Date End Date Matthew Mccabe MD [address] [place] [address] PCP - General Family Medicine 05/13/24 Stan Meza MD [address] [facility] MEDICAL ONCOLOGY, [address] [place] [address] Medical Oncologist/Scroll Shear Operator Medical Oncology 06/28/24 documented as of this encounter
--- OUTSIDE RECORDS SUMMARY | 2024-10-30 07:02 | XMS_ITS | Encounter Summary ---
Author Organization [facility] Address [address] [place] [address] Care Team Providers Care Busher Helper Name Role Phone Matthew Mccabe MD Primary Care Prov ider Stan Meza MD Unavailable [phone] Encounter Details Date Type Department Care Team (Late st Contact Info) Description 09/09/2024 Telephone [facility] Outpatient Health - Palliative Care [address] [facility] Outpatient Health [place], [place] [id number] Mariah Altamirano RN Social History Tobacco Use Types Packs/Day [...] on file Legal Sex Male 6:04 PM RESOURCE MANAGEMENT SPECIALIST Gender Identity Not on file Sexual Orientation Not on file documented as of this encounter Miscellaneous Notes * Telephone Encounter - Mariah Altamirano RN - 09/09/2024 2:17 PM RESOURCE MANAGEMENT SPECIALIST [facility] Palliative Care Outpatient Clinic Referral follow up note: Call placed to pt. EWA with palliative care contact information. URCE MANAGEMENT SPECIALIST documented in this encounter Plan of Treatment Not on file documented as of this encounter Visit Diagnoses Not on filedocumented in this encounter Care Teams Busher Helper Relationship Specialty Start Date End Date Matthew Mccabe MD [address] [place] [address] PCP - General Family Medicine 05/13/24 Stan Meza MD [address] [facility] MEDICAL ONCOLOGY, [address] [place] [address] Medical Oncologist/Exploration Geologist Medical Oncology 06/28/24 documented as of this encounter
--- OUTSIDE RECORDS SUMMARY | 2024-10-30 07:02 | XMS_ITS | Encounter Summary ---
Author Organization [facility] Address [address] [place] [address] Phone Care Team Providers Care Sales Agent Financial Report Service Name Role Phone Matthew Mccabe MD Primary Care Prov ider Stan Meza MD Unavailable [phone] Encounter Details Date Type Department Care Team (Late st Contact Info) Description 09/30/2024 Social Work [facility] Oncology [facility] [facility] Floor [address] [place] [address] Sarah Brunner LCSW Social History Tobacco Use Types Packs/Day Years [...] on file 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 Transportation has been arranged for: DATE: 10/03 PICK-UP TIME: 730a PICK-UP TIME FOR RETURN TRIP: Will call TRIP NUMBER: [id number] CONTACT TELEPHONE #: [phone] Patient is aware of these arrangements and in agreement with plan. 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
--- OUTSIDE RECORDS SUMMARY | 2024-10-30 07:02 | XMS_ITS | Encounter Summary ---
Author Organization [facility] Healthcare Address [address] [place] [address] Care Team Providers Care Senior Sas Programmer Name Role Phone Matthew Mccabe MD Primary Care Prov ider Stan Meza MD Unavailable [phone] Encounter Details Date Type Department Care Team (Latest Contact Info) Description 09/17/2024 11:19 AM STITCHER SPECIAL MACHINE - 09/17/2024 11:59 PM STITCHER SPECIAL MACHINE Hospital Encounter [facility] [address] [place] [id number] Discharge Disposition: Discharge to home or self care Social History Tobacco Use Types Packs/Day Years [...] on file 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 Gender Identity Not on file Sexual Orientation Not on file documented as of this encounter Medications at Time of Discharge acetaminophen 500 mg capsule Take 1 capsule (500 mg total) by mouth every 4 (four) hours as needed albuterol 2.5 mg /3 mL (0.083 %) nebulizer solution Take 3 mL (2.5 mg total) by nebulization every 4 (four) hours as needed for shortness of breath or wheezing albuterol HFA (PROVENTIL HFA,VENTOLIN HFA,PROAIR HFA) 90 mcg/actuation inhaler Inhale 2 puffs every 6 (six) hours as needed 9 alfuzosin ER (UROXATRAL) 10 mg 24 hr tablet Take 1 tablet (10 mg total) by mouth daily apixaban (ELIQUIS) 5 mg tablet Take 1 tablet (5 mg total) by mouth 2 (two) times a day 60 tablet 4 aspirin 81 mg chewable tablet Take 1 tablet (81 mg total) by mouth daily 3 atorvastatin (LIPITOR) 40 mg tablet Take 1 tablet (40 mg total) by mouth daily busPIRone (BUSPAR) 7.5 mg tablet Take 1 tablet (7.5 mg total) by mouth 2 (two) times a day carvediloL (COREG) 12.5 mg tablet Take 1 tablet (12.5 mg total) by mouth 2 (two) times a day with meals 4 cefdinir (OMNICEF) 300 mg capsule TAKE 1 CAPSULE BY MOUTH EVERY 12 HOURS FOR 7 DAYS 4 cholecalciferol (VITAMIN D-3) 2000 unit capsule 4 dexAMETHasone (DECADRON) 4 mg tabletIndication s: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) Take 8 mg (2 tabs) by mouth once on Day 2, then 8 mg (2 tabs) twice daily on Days 3 and 4. 10 tablet 3 4 doxycycline 100 mg tablet TAKE 1 TABLET BY MOUTH TWICE A DAY FOR 7 DAYS 4 eplerenone (INSPRA) 25 mg tablet Take 1 tablet (25 mg total) by mouth daily 4 hydrOXYzine (VISTARIL) 100 mg capsule TAKE 1 CAPSULE (100MG) BY MOUTH EVERY 8 HOURS IF NEEDED FOR 30 DAYS 4 lamoTRIgine (LaMICtal) 100 mg tablet Take 1 tablet (100 mg total) by mouth 2 (two) times a day latanoprost (XALATAN) 0.005 % ophthalmic solution 1 drop nightly 9 losartan (COZAAR) 50 mg tablet Take 1 tablet (50 mg total) by mouth daily 4 mirtazapine (REMERON) 7.5 mg tablet daily 4 nicotine (NICODERM CQ) [address] 1 patch on the skin daily Has but isn't currently using 8 nicotine polacrilex (NICORETTE) 4 mg gum Take 1 each (4 mg total) by mouth as needed Has but not currently using 2 omeprazole (PriLOSEC) 40 mg capsule Take 1 capsule (40 mg total) by mouth daily before breakfast 9 ondansetron (ZOFRAN) 8 mg tabletIndication s: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),Prophylaxi s for chemotherapy-ind uced neutropenia Take 1 tablet (8 mg total) by mouth every 8 (eight) hours as needed for nausea or vomiting Use if prochlorperazine does not stop nausea 24 tablet 3 4 senna-docusate (PERICOLACE) 8.6-50 mgIndications:co nstipation Take 2 tablets by mouth daily 60 tablet 3 4 Symbicort 160-4.5 mcg/actuation inhaler Inhale 2 puffs daily 02 3 triamcinolone (KENALOG) 0.1 % cream Apply topically 2 (two) times a day 9 varenicline tartrate (CHANTIX) 1 mg tablet Take 1 tablet (1 mg total) by mouth 2 (two) times a day Has but not currently taking 3 ziprasidone (GEODON) 80 mg capsule Take 1 capsule (80 mg total) by mouth 2 (two) times a day with meals morphine ER (MS CONTIN) 30 mg 12 hr tablet Take 1 tablet (30 mg total) by mouth every 12 (twelve) hours 60 tablet 4 09/25/20 24 oxyCODONE (ROXICODONE) 5 mg immediate release tabletIndication s:Pain,cancer related pain Take 1-2 tablets (5-10 mg total) by mouth every 4 (four) hours as needed for pain 120 tablet 4 09/25/20 documented as of this encounter Discharge Disposition Disposition Code Departure Means Destination Discharge to home or self care documented in this encounter Plan of Treatment Not on file documented as of this encounter Procedures Procedure Name Priority Date/Time Associated Diagnosis Comments CT BODY OUTSIDE REFERENCE Routine 09/17/2024 11:19 AM STITCHER SPECIAL MACHINE documented in this encounter Results * CT Body Outside Reference (09/17/2024 11:19 AM STITCHER SPECIAL MACHINE) Impressions [facility] - 09/17/2024 11:19 AM STITCHER SPECIAL MACHINE These images are for Reference purposes only and have not been reviewed by [facility]. ??There will be no report generated by a [facility] Radiologist. Narrative [facility] - 09/17/2024 11:19 AM STITCHER SPECIAL MACHINE EXAMINATION: ??Images For Reference Purposes Only us Stan Meza MD IMG CT PROCEDURES Final R esult [facility] documented in this encounter Visit Diagnoses Not on filedocumented in this encounter Care Teams Senior Sas Programmer Relationship Specialty Start Date End Date Matthew Mccabe MD [address] [place] [address] PCP - General Family Medicine 05/13/24 Stan Meza MD [address] [facility] IM MEDICAL ONCOLOGY, [address] [place] [address] Medical Oncologist/Toll Test Desk Worker Medical Oncology 06/28/24 documented as of this encounter
--- OUTSIDE RECORDS SUMMARY | 2024-10-30 07:02 | XMS_ITS | Encounter Summary ---
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 Transportation has been arranged for: DATE: 09/25 PICK-UP TIME: 6am PICK-UP TIME FOR RETURN TRIP: Will call TRIP NUMBER: [id number] CONTACT TELEPHONE #: [phone] Patient is aware of these arrangements and in agreement with plan. 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 MEDICAL ONCOLOGY, [address] [place] [address] Medical Oncologist/Data Center Operator Medical Oncology 06/28/24 documented as of this encounter
--- OUTSIDE RECORDS SUMMARY | 2024-10-30 07:02 | XMS_ITS | Encounter Summary ---
Author Organization [facility] Healthcare Address [address] [place] [address] Care Team Providers Care Calender Runner Name Role Phone Matthew Mccabe MD Primary Care Prov ider Stan Meza MD Unavailable Reason for Visit * Episode Based Medications (Routine) - Authorized Specialty Diagnoses / Procedures Referred By Contac t Referred To Contact Diagnoses 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) Stan Meza MD [address] [place] [address] Phone: tel: fax: [facility] Infusion [address] [facility] Floor 5 [place] [address] Referral ID Status Reason Start Date Expiration Date V isits Requested Visits Authorized [id number] Authorized 08/20/2024 02/06/2025 1 50 Encounter Details Date Type Department Care Team (Late st Contact Info) Description 09/25/2024 7:00 AM INDUSTRIAL PARAMEDIC Lab [facility] - Lab Collection [address] [facility] [address] [place] [address] 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) Social History Tobacco Use Types Packs/Day [...] on file 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 Gender Identity Not on file Sexual Orientation Not on file documented as of this encounter Plan of Treatment Not on file documented as of this encounter Procedures Procedure Name Priority Date/Time Associated Diagnosis Comments EGFR STAT 09/25/2024 7:43 AM INDUSTRIAL PARAMEDIC 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) DIFFERENTIAL AUTO STAT 09/25/2024 7:4 3 AM INDUSTRIAL PARAMEDIC 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) CBC WITH AUTO DIFFERENTIAL STAT 09/25/2024 7:43 AM INDUSTRIAL PARAMEDIC 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) COMPREHENSIVE METABOLIC PANEL STAT 09/25/2024 7:43 AM INDUSTRIAL PARAMEDIC 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) documented in this encounter Results * eGFR (09/25/2024 7:43 AM INDUSTRIAL PARAMEDIC) eGFR >90 >=60 mL/min/1. 73 m2 Comment: Interpretive Data Reference Interval Normal ?>/= 90 mL/min/1.73m2 Mildly decreased* ? 60 - 89 mL/min/1.73m2 Mildly to moderately decreased ?45 - 59 mL/min/1.73m2 Moderately to severely decreased ??30 - 44 mL/min/1.73m2 Severely decreased ?15 - 29 mL/min/1.73m2 Kidney Failure ?< 15 ??mL/min/1.73m2 *Relative to young adult level Estimated glomerular filtration rate is determined by the 2020 CKD-EPI equation recommended by the National Kidney Foundation (A Unifying Approach to GFR Estimation: Recommendations of the NKF-ASK Task Force on Reassessing the Inclusion of Race in Diagnosing Kidney Disease, JASN 202). The CKD-EPI equation should not be used for patients with unstable renal function and has not been validated in children and those over 70. Current interpretive data was last reviewed 2021. Blood 09/25/2024 7:43 AM INDUSTRIAL PARAMEDIC 09/25/2024 7:51 AM INDUSTRIAL PARAMEDIC us Stan Meza MD LAB BLOOD ORDERABLES Yolette banda Result [facility] Department [place] [address] * (ABNORMAL) Differential, auto (09/25/2024 7:43 AM INDUSTRIAL PARAMEDIC) Neutrophil abs 4.1 1.5 - 6.5 K/cumm Comment:Testing performed by : [facility], [address] [place], [place] [phone] Lymphocyte abs 0.8 0.8 - 3.3 K/cumm [facility] Comment:Testing performed by : [facility], [address] [place] [phone] Monocyte abs 0.9(H) 0.2 - 0.8 K/cumm [facility] Comment:Testing performed by : [facility], [address] [place] [phone] Eosinophil abs 0.1 0.0 - 0.5 K/cumm [facility] Comment:Testing performed by : [facility], [address] [place] [phone] Basophil abs 0.1 0.0 - 0.1 K/cumm [facility] Comment:Testing performed by : [facility], [address] [place] [phone] Neutrophil pct 69.0 % [facility] Comment: Interpretive Data Percent cell count reference ranges are not reported, since discordance with absolute values may lead to misinterpretation of CBC data. Current Interpretive Data was last revised on 2018. Testing performed by: [facility], [address] [place] [phone] Lymphocyte pct 13.4 % [facility] Comment: Interpretive Data Percent cell count reference ranges are not reported, since discordance with absolute values may lead to misinterpretation of CBC data. Current Interpretive Data was last revised on 2018. Testing performed by: [facility], [address] [place] [phone] Monocyte pct 15.3 % [facility] Comment: Interpretive Data Percent cell count reference ranges are not reported, since discordance with absolute values may lead to misinterpretation of CBC data. Current Interpretive Data was last revised on 2018. Testing performed by: [facility], [address] [place] [phone] Eosinophil pct 1.3 % [facility] Comment: Interpretive Data Percent cell count reference ranges are not reported, since discordance with absolute values may lead to misinterpretation of CBC data. Current Interpretive Data was last revised on 2018. Testing performed by: [facility], [address] [place] [phone] Basophil pct 1.0 % [facility] Comment: Interpretive Data Percent cell count reference ranges are not reported, since discordance with absolute values may lead to misinterpretation of CBC data. Current Interpretive Data was last revised on 2018. Testing performed by: [facility], [address] [place] [phone] Blood 09/25/2024 7:43 AM INDUSTRIAL PARAMEDIC 09/25/2024 7:48 AM INDUSTRIAL PARAMEDIC us Stan Meza MD LAB BLOOD ORDERABLES Yolette l Result [facility] Department [place] [address] * (ABNORMAL) CBC with auto differential (09/25/2024 7:43 AM INDUSTRIAL PARAMEDIC) WBC 5.9 3.8 - 9.9 K/cumm Comment:Testing performed by : [facility], [address] [place] [address] Hgb 9.7(L) 13.0 - 17.5 g/dL [facility] Comment:Testing performed by : [facility], [address] [place] [address] Hct 30.5(L) 38.9 - 50.3 % [facility] Comment:Testing performed by : [facility], [address] [place] [address] Plt 350 150 - 400 K/cumm [facility] Comment:Testing performed by : [facility], [address] [place] [address] MPV 6.5(L) 6.8 - 10.4 fL [facility] Comment:Testing performed by : [facility], [address] [place] [address] RBC 3.72(L) 4.30 - 5.80 M/cumm [facility] Comment:Testing performed by : [facility], [address] [place] [address] MCV 82.1 81.3 - 96.4 fL [facility] Comment:Testing performed by : [facility], [address] [place] [address] MCH 26.1(L) 27.1 - 33.3 pg [facility] Comment:Testing performed by : [facility], [address] [place] [address] MCHC 31.8(L) 32.3 - 35.7 g/dL [facility] Comment:Testing performed by : [facility], [address] [place] [address] RDW CV 17.1(H) 11.1 - 14.9 % [facility] Comment:Testing performed by : [facility], [address] [place] [address] NRBC abs 0.00 0.00 - 0.01 K/cumm [facility] Comment:Testing performed by : [facility], [address] [place] [phone] Blood 09/25/2024 7:43 AM INDUSTRIAL PARAMEDIC 09/25/2024 7:48 AM INDUSTRIAL PARAMEDIC us Stan Meza MD LAB BLOOD ORDERABLES Yolette l Result [facility] Department [place] [address] * (ABNORMAL) Comprehensive metabolic panel (09/25/2024 7:43 AM INDUSTRIAL PARAMEDIC) Sodium 135 135 - 145 mmol/L Potassium, pl 4.2 3.3 - 4.9 mmol/L [facility] Chloride 98 97 - 110 mmol/L [facility] CO2 30 22 - 32 mmol/L [facility] Anion gap 7 2 - 15 mmol/L [facility] BUN 5(L) 6 - 25 mg/dL [facility] Creatinine 0.73(L) 0.80 - 1.30 mg/dL [facility] Glucose 99 70 - 199 mg/dL [facility] Comment: Interpretive Data Fasting glucose >/= 126 mg/dl is diagnostic for diabetes. ?? Fasting is defined as no caloric intake for at least 8 hours. Fasting glucose between 100 mg/dl to 125 mg/dl is diagnostic of prediabetes. In a patient with classic symptoms of hyperglycemia or hyperglycemic crisis, a random glucose >/= 200 mg/dl is diagnostic for diabetes. In the absence of unequivocal hyperglycemia, results should be confirmed by repeat testing. The classification and Diagnosis of Diabetes Diabetes Care 202; 46: S19-S40. Current interpretive data was last revised 2022. Calcium 9.3 8.5 - 10.3 mg/dL [facility] Bilirubin, total 0.2 0.1 - 1.2 mg/dL [facility] Protein, pl 6.6 6.5 - 8.5 g/dL [facility] Albumin 3.3(L) 3.5 - 5.0 g/dL [facility] Alk phos 172(H) 40 - 130 Units/L [facility] ALT 18 7 - 55 Units/L [facility] AST 17 10 - 50 Units/L [facility] Blood 09/25/2024 7:43 AM INDUSTRIAL PARAMEDIC 09/25/2024 7:51 AM INDUSTRIAL PARAMEDIC us Stan Meza MD LAB BLOOD ORDERABLES Yolette l Result [facility] Department [place] [address] documented in this encounter Visit Diagnoses Diagnosis 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) documented in this encounter Orders Appointment Requests Count Last Ordered Date Fi rst Ordered Date ONCBCN LAB APPOINTMENT 1 09/25/2024 documented in this encounter Care Teams Calender Runner Relationship Specialty Start Date End Date Matthew Mccabe MD [address] [place] [address] PCP - General Family Medicine 05/13/24 Stan Meza MD [address] [facility] [address] IM MEDICAL ONCOLOGY, [address] [place] [address] Medical Oncologist/Visual Basic .Net Developer Medical Oncology 06/28/24 documented as of this encounter
--- OUTSIDE RECORDS SUMMARY | 2024-10-30 07:02 | XMS_ITS | Encounter Summary ---
Author Organization [facility] Healthcare Address [address] [place] [address] Care Team Providers Care Valet Service Attendant Name Role Phone Matthew Mccabe MD Primary Care Prov ider Stan Meza MD Unavailable [phone] Encounter Details Date Type Department Care Team (Late st Contact Info) Description 09/05/2024 7:15 AM ENGINEERING AIDE Lab [facility] - Lab Collection [address] [facility] Floor 5 [place] [address] Primary cancer of left lower lobe of [...] on file Legal Sex Male 6:04 PM ENGINEERING AIDE Gender Identity Not on file Sexual Orientation Not on file documented as of this encounter Plan of Treatment Not on file documented as of this encounter Procedures Procedure Name Priority Date/Time Associated Diagnosis Comments DIFFERENTIAL AUTO Routine 09/05/2024 8:0 3 AM ENGINEERING AIDE 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) CBC WITH AUTO DIFFERENTIAL Routine 09/05/2024 8:03 AM ENGINEERING AIDE 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) EGFR STAT 09/05/2024 7:51 AM ENGINEERING AIDE 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) COMPREHENSIVE METABOLIC PANEL STAT 09/05/2024 7:51 AM ENGINEERING AIDE 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) documented in this encounter Results * (ABNORMAL) Differential, auto (09/05/2024 8:03 AM ENGINEERING AIDE) Neutrophil abs 1.6 1.5 - 6.5 K/cumm Comment:Testing performed by : [facility], [address] [place] [address] Lymphocyte abs 0.4(L) 0.8 - 3.3 K/cumm [facility] Comment:Testing performed by : [facility], [address] [place], [place] [phone] Monocyte abs 0.4 0.2 - 0.8 K/cumm [facility] Comment:Testing performed by : [facility], [address] [place] [address] Eosinophil abs 0.0 0.0 - 0.5 K/cumm [facility] Comment:Testing performed by : [facility], [address] [place] [phone] Basophil abs 0.0 0.0 - 0.1 K/cumm [facility] Comment:Testing performed by : [facility], [address] [place], [place] [phone] Neutrophil pct 65.0 % [facility] Comment: Interpretive Data Percent cell count reference ranges are not reported, since discordance with absolute values may lead to misinterpretation of CBC data. Current Interpretive Data was last revised on 2018. Testing performed by: [facility], [address] [place] [phone] Lymphocyte pct 16.1 % [facility] Comment: Interpretive Data Percent cell count reference ranges are not reported, since discordance with absolute values may lead to misinterpretation of CBC data. Current Interpretive Data was last revised on 2018. Testing performed by: [facility], [address] [place] [phone] Monocyte pct 17.4 % [facility] Comment: Interpretive Data Percent cell count reference ranges are not reported, since discordance with absolute values may lead to misinterpretation of CBC data. Current Interpretive Data was last revised on 2018. Testing performed by: [facility], [address] [place] [phone] Eosinophil pct 0.6 % [facility] Comment: Interpretive Data Percent cell count reference ranges are not reported, since discordance with absolute values may lead to misinterpretation of CBC data. Current Interpretive Data was last revised on 2018. Testing performed by: [facility], [address] [place] [phone] Basophil pct 0.9 % [facility] Comment: Interpretive Data Percent cell count reference ranges are not reported, since discordance with absolute values may lead to misinterpretation of CBC data. Current Interpretive Data was last revised on 2018. Testing performed by: [facility], [address] [place] [phone] Blood 09/05/2024 8:03 AM ENGINEERING AIDE 09/05/2024 8:04 AM ENGINEERING AIDE us Stan Meza MD LAB BLOOD ORDERABLES [place] l Result INDERJITALDO MARTÍN [facility] Department [place] [address] * (ABNORMAL) CBC with auto differential (09/05/2024 8:03 AM ENGINEERING AIDE) WBC 2.5(L) 3.8 - 9.9 K/cumm Comment:Testing performed by : [facility], [address] [place] [address] Hgb 10.8(L) 13.0 - 17.5 g/dL [facility] Comment:Testing performed by : [facility], [address] [place], [place] [phone] Hct 33.7(L) 38.9 - 50.3 % [facility] Comment:Testing performed by : [facility], [address] [place], [place] [phone] Plt 103(L) 150 - 400 K/cumm [facility] Comment:Testing performed by : [facility], [address] [place], [place] [phone] MPV 7.1 6.8 - 10.4 fL [facility] Comment:Testing performed by : [facility], [address] [place], [place] [phone] RBC 4.04(L) 4.30 - 5.80 M/cumm [facility]ER [facility] Comment:Testing performed by : [facility], [address] [place] [address] MCV 83.5 81.3 - 96.4 fL [facility] Comment:Testing performed by : [facility], [address] [place], [place] [phone] MCH 26.7(L) 27.1 - 33.3 pg [facility] Comment:Testing performed by : [facility], [address] [place] [address] MCHC 32.0(L) 32.3 - 35.7 g/dL [facility] Comment:Testing performed by : [facility], [address] [place] [address] RDW CV 15.3(H) 11.1 - 14.9 % [facility] Comment:Testing performed by : [facility], [address] [place] [address] NRBC abs 0.00 0.00 - 0.01 K/cumm [facility] Comment:Testing performed by : [facility], [address] [place] [phone] Blood 09/05/2024 8:03 AM ENGINEERING AIDE 09/05/2024 8:04 AM ENGINEERING AIDE Stan Meza MD LAB BLOOD ORDERABLES [place] l Result Performing Organization Address [facility]/State/ZIP Co de Phone Number [facility] Department [place] [address] * eGFR (09/05/2024 7:51 AM ENGINEERING AIDE) eGFR >90 >=60 mL/min/1. 73 m2 Comment: [...] of Race in Diagnosing Kidney Disease, JASN 2020). The CKD-EPI equation should not be used for patients with unstable renal function and has not been validated in children and those over 70. Current interpretive data was last reviewed 2021. Blood 09/05/2024 7:51 AM ENGINEERING AIDE 09/05/2024 8:15 AM ENGINEERING AIDE Stan Meza MD LAB BLOOD ORDERABLES [place] l Result [facility] [place] [address] * (ABNORMAL) Comprehensive metabolic panel (09/05/2024 7:51 AM ENGINEERING AIDE) Sodium 135 135 - 145 mmol/L Potassium, pl 3.8 3.3 - 4.9 mmol/L [facility] Chloride 98 97 - 110 mmol/L [facility] CO2 29 22 - 32 mmol/L [facility] Anion gap 8 2 - 15 mmol/L [facility] BUN 5(L) 6 - 25 mg/dL [facility] Creatinine 0.72(L) 0.80 - 1.30 mg/dL [facility] Glucose 99 70 - 199 mg/dL [facility] Comment: Interpretive Data Fasting glucose >/= 126 [...] interpretive data was last revised 2022. Calcium 8.9 8.5 - 10.3 mg/dL [facility] Bilirubin, total 0.3 0.1 - 1.2 mg/dL [facility] Protein, pl 6.9 6.5 - 8.5 g/dL [facility] Albumin 3.4(L) 3.5 - 5.0 g/dL [facility] Alk phos 160(H) 40 - 130 Units/L [facility] ALT 24 7 - 55 Units/L [facility] AST 21 10 - 50 Units/L [facility] Blood 09/05/2024 7:51 AM ENGINEERING AIDE 09/05/2024 8:15 AM ENGINEERING AIDE Stan Meza MD LAB BLOOD ORDERABLES [place] l Result [facility] Department [place] [address] documented in this encounter Visit Diagnoses Diagnosis 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) documented in this encounter Care Teams Valet Service Attendant Relationship Specialty Start Date End Date Matthew Mccabe MD [address] [place] [address] PCP - General Family Medicine 05/13/24 Stan Meza MD [address] [facility] MEDICAL ONCOLOGY, [address] [place] [address] Medical Oncologist/Qualitative Researcher Medical Oncology 06/28/24 documented as of this encounter
--- OUTSIDE RECORDS SUMMARY | 2024-10-30 07:02 | XMS_ITS | Encounter Summary ---
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 Transportation has been arranged for: DATE: 10/24 PICK-UP TIME: [phone] PICK-UP TIME FOR RETURN TRIP: Will call TRIP NUMBER: [id number] CONTACT TELEPHONE #: [phone] Social Work left a message providing details of transportation arrangements. OR LINUX UNIX ENGINEER documented in this encounter Plan of Treatment Not on file documented as of this encounter Visit Diagnoses Not on filedocumented in this encounter Care Teams Buffer Copper Relationship Specialty Start Date End Date Matthew Mccabe MD [address] [place] [address] PCP - General Family Medicine 05/13/24 Stan Meza MD [address] [facility] MEDICAL ONCOLOGY, [address] [place] [address] Medical Oncologist/Systems Auditor Medical Oncology 06/28/24 documented as of this encounter
--- OUTSIDE RECORDS SUMMARY | 2024-10-30 07:02 | XMS_ITS | Encounter Summary ---
Author Organization [facility] Address [address] [place] [address] Phone Care Team Providers Care Education General Manager Name Role Phone Matthew Mccabe MD Primary Care Prov ider Stan Meza MD Unavailable [phone] Encounter Details Date Type Department Care Team (Late st Contact Info) Description 10/03/2024 Telephone [facility] - [facility] ENT [address] [facility] Advanced Medicine 11th [place] [address] [place] [address] Alexsandra Augustine MS Social History Tobacco Use Types Packs/Day Years [...] on file Legal Sex Male 6:04 PM 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 Gender Identity Not on file Sexual Orientation Not on file documented as of this encounter Miscellaneous Notes * Telephone Encounter - Valery Macario - 10/03/2024 11:51 AM CST Pt called to deejay appt GRAPHIC TECH documented in this encounter Plan of Treatment Not on file documented as of this encounter Visit Diagnoses Not on filedocumented in this encounter Care Teams Education General Manager Relationship Specialty Start Date End Date Matthew Mccabe MD [address] [place] [address] PCP - General Family Medicine 05/13/24 Stan Meza MD [address] [facility] MED[facility] ONCOLOGY, [address] [place] [address] Medical Oncologist/Squeezer Operator Medical Oncology 06/28/24 documented as of this encounter
--- OUTSIDE RECORDS SUMMARY | 2024-10-30 07:02 | XMS_ITS | Encounter Summary ---
Author Organization [facility] Address [address] [place] [address] Phone Care Team Providers Care Production Editor Name Role Phone Matthew Mccabe MD Primary Care Prov ider Stan Meza MD Unavailable [phone] Encounter Details Date Type Department Care Team (Late st Contact Info) Description 10/17/2024 Orders Only [facility] Oncology [address] [facility] Floor 5 [place] [address] Pool [facility], [facility] Social History Tobacco Use Types Packs/Day Years [...] on file 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
--- OUTSIDE RECORDS SUMMARY | 2024-10-30 07:02 | XMS_ITS | Encounter Summary ---
Author Organization [facility] Healthcare Address [address] [place] [address] Care Team Providers Care Senior Marketing Engineer Name Role Phone Matthew Mccabe MD Primary Care Prov ider Stan Meza MD Unavailable [phone] Encounter Details Date Type Department Care Team (Late st Contact Info) Description 09/10/2024 Telephone [facility] Outpatient Health - Palliative Care [address] [facility] Outpatient Health [place], [place] [id number] Mariah Altamirano RN Social History Tobacco Use [...] on file Legal Sex Male 6:04 PM HOSPICE CONSULTANT Gender Identity Not on file Sexual Orientation Not on file documented as of this encounter Miscellaneous Notes * Telephone Encounter - Mariah Altamirano RN - 09/10/2024 8:20 AM HOSPICE CONSULTANT [facility] Palliative Care Outpatient Clinic Referral follow up note: Pt returned call and at this time does not feel he needs palliative care. Pt given contact information and will reach out in the future. ICE CONSULTANT documented in this encounter Plan of Treatment Not on file documented as of this encounter Visit Diagnoses Not on filedocumented in this encounter Care Teams Senior Marketing Engineer Relationship Specialty Start Date End Date Matthew Mccabe MD [address] [place] [address] PCP - General Family Medicine 05/13/24 Stan Meza MD [address] [facility] MEDICAL ONCOLOGY, [address] [place] [address] Medical Oncologist/Sales Office Coordinator Medical Oncology 06/28/24 documented as of this encounter
--- OUTSIDE RECORDS SUMMARY | 2024-10-30 07:02 | XMS_ITS | Encounter Summary ---
Author Organization [facility] Address [address] [place] [address] Phone Care Team Providers Care Superintendent Of Generation Name Role Phone Matthew Mccabe MD Primary Care Prov ider Stan Meza MD Unavailable [phone] Encounter Details Date Type Department Care Team (Late st Contact Info) Description 10/14/2024 Social Work [facility] Oncology [facility] Floor [address] [place] [address] Sarah Brunner, LAURIE Social History [...] on file Legal Sex Male 6:04 PM TIRE ADJUSTER Gender Identity Not on file Sexual Orientation Not on file documented as of this encounter Progress Notes * Sarah Brunner LCSW - 10/14/2024 11:59 PM CST ANGELES Supervisor Line Department Brief Intervention Social Work received phone call from patient today regarding: Transportation Assistance A referral was completed to: [place] Medicaid Transportation ([phone]). Transportation has been arranged for: DATE: 10/17 PICK-UP TIME: 6am PICK-UP TIME FOR RETURN TRIP: Will call TRIP NUMBER: N/A CONTACT TELEPHONE #: [phone] Patient is aware of these arrangements and in agreement with plan. ADJUSTER documented in this encounter Plan of Treatment Not on file documented as of this encounter Visit Diagnoses Not on filedocumented in this encounter Care Teams Superintendent Of Generation Relationship Specialty Start Date End Date Matthew Mccabe MD [address] [place] [address] PCP - General Family Medicine 05/13/24 Stan Meza MD [address] [facility] MEDICAL ONCOLOGY, [address] [place] [address] Medical Oncologist/Bead Wrapper Medical Oncology 06/28/24 documented as of this encounter
--- OUTSIDE RECORDS SUMMARY | 2024-10-30 07:02 | XMS_ITS | Encounter Summary ---
Author Organization [facility] Healthcare Address [address] [place] [address] Care Team Providers Care Package Dyer Name Role Phone Matthew Mccabe MD Primary Care Prov ider Stan Meza MD Unavailable [phone] Encounter Details Date Type Department Care Team (Late st Contact Info) Description 09/11/2024 Telephone [facility] Outpatient Health - Palliative Care [address] [facility] Outpatient Health [place], [place] [id number] Mariah Altamirano RN Social History Tobacco Use [...] on file Legal Sex Male 6:04 PM HEMATOLOGY TECHNOLOGIST Gender Identity Not on file Sexual Orientation Not on file documented as of this encounter Miscellaneous Notes * Telephone Encounter - Mariah Altamirano RN - 09/11/2024 2:17 PM HEMATOLOGY TECHNOLOGIST [facility] Palliative Care Outpatient Clinic Referral follow up note: Patient called requesting an appointment with Palliative Care. Appointment scheduled for Monday 09/17. TOLOGY TECHNOLOGIST documented in this encounter Plan of Treatment Not on file documented as of this encounter Visit Diagnoses Not on filedocumented in this encounter Care Teams Package Dyer Relationship Specialty Start Date End Date Matthew Mccabe MD [address] [place] [address] PCP - General Family Medicine 05/13/24 Stan Meza MD [address] [facility] MEDICAL ONCOLOGY, [address] [place] [address] Medical Oncologist/Adult Parole Officer Medical Oncology 06/28/24 documented as of this encounter
--- OUTSIDE RECORDS SUMMARY | 2024-10-30 07:02 | XMS_ITS | Encounter Summary ---
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 Letter scanned into chart. ING TURNER AND COUNTER documented in this encounter Plan of Treatment Not on file documented as of this encounter Visit Diagnoses Not on filedocumented in this encounter Care Teams Salesperson Hosiery Relationship Specialty Start Date End Date Matthew Mccabe MD [address] [place] [address] PCP - General Family Medicine 05/13/24 Stan Meza MD [address] [facility] MEDICAL ONCOLOGY, [address] [place] [address] Medical Oncologist/Oral And Maxillofacial Surgeon Medical Oncology 06/28/24 documented as of this encounter
--- OUTSIDE RECORDS SUMMARY | 2024-10-30 07:02 | XMS_ITS | Encounter Summary ---
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 Gender Identity Not on file Sexual Orientation Not on file documented as of this encounter Progress Notes * Gayatri Garza RN - 09/23/2024 1:44 PM CST Progress notes/patient demographics sent to [facility] for insurance authorization for palliative care visits NG MACHINE OPERATOR documented in this encounter Plan of Treatment Not on file documented as of this encounter Visit Diagnoses Not on filedocumented in this encounter Care Teams Embossing Toolsetter Relationship Specialty Start Date End Date Matthew Mccabe MD [address] [place] [address] PCP - General Family Medicine 05/13/24 Stan Meza MD [address] [facility] MEDICAL ONCOLOGY, [address] [place] [address] Medical Oncologist/Highway Truck Driver Medical Oncology 06/28/24 documented as of this encounter
--- OUTSIDE RECORDS SUMMARY | 2024-10-30 07:02 | XMS_ITS | Encounter Summary ---
Author Organization [facility] Address [address] [place] [address] Phone Care Team Providers Care Math Specialist Name Role Phone Matthew Mccabe MD Primary Care Prov ider Stan Meza MD Unavailable [phone] Reason for Referral * MRI/CAT/PET Scan (Routine) - Authorized Specialty Diagnoses / Procedures Referred By Contac t Referred To Contact Radiology Diagnoses 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) Procedures CT Chest Abdomen Pelvis W Contrast Stan Meza MD [address] [place] [address] Phone: tel: fax: [address] [address] Referral ID Status Reason Start Date Expiration Date V isits Requested Visits Authorized [id number] Authorized 09/25/2024 10/25/2025 1 1 [facility] Reason for Visit * Episode Based Medications (Routine) - Authorized Specialty Diagnoses / Procedures Referred By Contac t Referred To Contact Diagnoses 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) Stan Meza MD [address] [place] [address] Phone: tel: fax: [facility] - Infusion [address] [facility] Floor 5 [place] [address] Referral ID Status Reason Start Date Expiration Date V isits Requested Visits Authorized [id number] Authorized 08/20/2024 02/06/2025 1 50 Encounter Details Date Type Department Care Team (Late st Contact Info) Description 09/25/2024 8:00 AM DELIVERY DRIVER ASSISTANT Office Visit [facility] Oncology [address] [facility] Floor 5 [place] [address] Stan Meza MD [address] [place] [address] Primary cancer of left lower lobe of [...] on file Legal Sex Male 6:04 PM DELIVERY DRIVER ASSISTANT Gender Identity Not on file Sexual Orientation Not on file documented as of this encounter Last Filed Vital Signs Vital Sign Reading Time Taken Comments Blood Pressure 142/91 09/25/2024 7:00 AM DELIVERY DRIVER ASSISTANT Pulse 88 09/25/2024 7:00 AM DELIVERY DRIVER ASSISTANT Temperature 36.5 ??C (97.7 ??F) 09/25/2024 7:00 AM CS T Respiratory Rate 18 09/25/2024 7:00 AM DELIVERY DRIVER ASSISTANT Oxygen Saturation 98% 09/25/2024 7:00 AM DELIVERY DRIVER ASSISTANT Inhaled Oxygen Concentration - - Weight 91.9 kg (202 lb 9.6 oz) 09/25/2024 7:00 A M DELIVERY DRIVER ASSISTANT Height - - Body Mass Index 32.7 08/29/2024 12:07 PM CDT documented in this encounter Ordered Prescriptions Prescription Sig Dispense Quantity Refills Last Filled Start Date End Date calcium carbonate-vitamin D3 1,250 mg (500 mg elemental)-400 unit tablet Take 1 tablet by mouth census taker before breakfast 30 tablet 3 09/25/2024 food supplemt, lactose-reduced 0.05 gram- 1.5 kcal/mL liquid Take 1 Bottle by mouth daily 5688 mL 2 09/25/2024 documented in this encounter Progress Notes * Jelena Quintana, LE - 09/25/2024 8:00 AM CST Images from the original note were not included. Oncology Progress Note Josafat Calvo 1960 09/25/2024 Stan Meza MD Diagnosis: Poorly differentiated non-small cell lung cancer Stage IV Diagnosed 06/19/24 PD-L1 = Quantity not sufficient Genomics Poneto Sequencing: Quantity not sufficient G360 History of Present Illness: Mr. Calvo is a 63-year-old man who had a screening CT of the lung on 03/01/24 which showed a possible fullness in the left hilum. Repeated CT on 04/17/24 showed bilateral hilar and mediastinal adenopathy with the largest lymph node measuring 4.6 X 2.4 cm in the left hilum. Bronchoscopy with biopsy oflymph node stations 10L and 11L on 06/19/24 showed poorly-differentiated non-small cell carcinoma oflung origin, positive for CK7 and weakly p40 while negative for TTF- 1, napsin A, chromogranin, and synaptophysin. Patient came to [facility] on 07/18/24 for further management. Treatment History: Palliative radiation to the sternum and sacrum (2,000 cGy) from 08/12/24 to 08/19/24 Carboplatin plus nab-paclitaxel and pembrolizumab C1D1: 08/22/24, C1D8: 09/05/24 Interval History: Mr. Calvo is a 63-year-old man with poorly differentiated non-small cell lung cancer. Patient received palliative radiation to the sacrum and sternum from 08/12/24 to 08/19/24 under the care of Dr. Jeffrey Ham. He started carboplatin plus nab-paclitaxel and pembrolizumab on 08/22/24 and was evaluated in the emergency room on 08/29/24 due to atrial fibrillation with rapid ventricular response. He was recommended admission but left against medical advise after receiving metoprolol and apixaban. He received C1D8 nab-paclitaxel on 09/05/24 and was evaluated in the emergency room at [facility] on 09/12/24 with dyspnea. White blood cell count was 1.5 K/cumm on admission. He was treated for post obstructive pneumonia and was discharged home on 09/15/24 with cefdinir and doxycycline. He returns today for C2 chemoimmunotherapy and has no new complaints. He is feeling well today overall; pain is well managed on the current regimen. He denies fevers and has completed antibiotic therapy. Past Medical History: Hypertension Mitral regurgitation Peripheral vascular disease COPD Glaucoma Hypertension Right knee replacement Personal History: Patient is single, has three children, smokes 1 pack of cigarettes per day for 40 years, drinks alcohol socially, and smokes marijuana. Family History: Mother had colon cancer and brother had lung cancer Current Outpatient Medications Medication Sig Dispense Refill acetaminophen 500 mg capsule Take 1 capsule (500 mg total) by mouth every 4 (four) hours as needed albuterol 2.5 mg /3 mL (0.083 %) nebulizer solution Take 3 mL (2.5 mg total) by nebulization every 4 (four) hours as needed for shortness of breath or wheezing albuterol HFA (PROVENTIL HFA,VENTOLIN HFA,PROAIR HFA) 90 mcg/actuation inhaler Inhale 2 puffs every6 (six) hours as needed alfuzosin ER (UROXATRAL) 10 mg 24 hr tablet Take 1 tablet (10 mg total) by mouth daily apixaban (ELIQUIS) 5 mg tablet Take 1 tablet (5 mg total) by mouth 2 (two) times a day 60 tablet 0 aspirin 81 mg chewable tablet Take 1 tablet (81 mg total) by mouth daily atorvastatin (LIPITOR) 40 mg tablet Take 1 tablet (40 mg total) by mouth daily busPIRone (BUSPAR) 7.5 mg tablet Take 1 tablet (7.5 mg total) by mouth 2 (two) times a day carvediloL (COREG) 12.5 mg tablet Take 1 tablet (12.5 mg total) by mouth 2 (two) times a day with meals cefdinir (OMNICEF) 300 mg capsule TAKE 1 CAPSULE BY MOUTH EVERY 12 HOURS FOR 7 DAYS cholecalciferol (VITAMIN D-3) 2000 unit capsule dexAMETHasone (DECADRON) 4 mg tablet Take 8 mg (2 tabs) by mouth once on Day 2, then 8 mg (2 tabs) twice daily on Days 3 and 4. 10 tablet 3 doxycycline 100 mg tablet TAKE 1 TABLET BY MOUTH TWICE A DAY FOR 7 DAYS eplerenone (INSPRA) 25 mg tablet Take 1 tablet (25 mg total) by mouth daily hydrOXYzine (VISTARIL) 100 mg capsule TAKE 1 CAPSULE (100MG) BY MOUTH EVERY 8 HOURS IF NEEDED FOR 30 DAYS lamoTRIgine (LaMICtal) 100 mg tablet Take 1 tablet (100 mg total) by mouth 2 (two) times a day latanoprost (XALATAN) 0.005 % ophthalmic solution 1 drop nightly LORazepam (ATIVAN) 0.5 mg tablet daily losartan (COZAAR) 50 mg tablet Take 1 tablet (50 mg total) by mouth daily mirtazapine (REMERON) 7.5 mg tablet daily morphine ER (MS CONTIN) 30 mg 12 hr tablet Take 1 tablet (30 mg total) by mouth every 12 (twelve) hours 60 tablet 0 nicotine (NICODERM CQ) [address] 1 patch on the skin daily Has but isn't currently using nicotine polacrilex (NICORETTE) 4 mg gum Take 1 each (4 mg total) by mouth as needed Has but not currently using omeprazole (PriLOSEC) 40 mg capsule Take 1 capsule (40 mg total) by mouth daily before breakfast ondansetron (ZOFRAN) 8 mg tablet Take 1 tablet (8 mg total) by mouth every 8 (eight) hours as needed for nausea or vomiting Use if prochlorperazine does not stop nausea 24 tablet 3 oxyCODONE (ROXICODONE) 5 mg immediate release tablet Take 1-2 tablets (5-10 mg total) by mouth every 4 (four) hours as needed for pain 120 tablet 0 senna (SENOKOT) 8.6 mg tablet daily senna-docusate (PERICOLACE) 8.6-50 mg Take 2 tablets by mouth daily 60 tablet 3 Symbicort 160-4.5 mcg/actuation inhaler Inhale 2 puffs daily traMADoL (ULTRAM) 50 mg tablet every 12 hours triamcinolone (KENALOG) 0.1 % cream Apply topically 2 (two) times a day varenicline tartrate (CHANTIX) 1 mg tablet Take 1 tablet (1 mg total) by mouth 2 (two) times a day Has but not currently taking ziprasidone (GEODON) 80 mg capsule Take 1 capsule (80 mg total) by mouth 2 (two) times a day with meals calcium carbonate-vitamin D3 1,250 mg (500 mg elemental)-400 unit tablet Take 1 tablet by mouth census taker before breakfast 30 tablet 3 food supplemt, lactose-reduced 0.05 gram- 1.5 kcal/mL liquid Take 1 Bottle by mouth daily 5688 mL 2 No current facility-administered medications for this visit. Allergies Allergen Reactions Lisinopril Anaphylaxis and Unknown Penicillins Anaphylaxis, Swelling and Unknown Review of Systems: Constitutional: Complains of fatigue. Denies diaphoresis, fever HENT: Complains of hoarseness. Denies congestion, hearing loss and sore throat. Eyes: Denies blurred vision and pain. Respiratory: Complaints of shortness of breath, cough, sputum production and hemoptysis. Cardiovascular: Denies palpitations Gastrointestinal: Complains of constipation. Denies abdominal pain, diarrhea, heartburn, nausea andvomiting. Genitourinary: Denies dysuria, flank pain, frequency and urgency. Musculoskeletal: Complains of diffuse pain, most pronounced in the low back and sternum. Skin: Denies itching and rash. Extremities: Denies edema. Neurological: Denies dizziness, focal weakness and headaches. Psychiatric/Behavioral: Complains of insomnia. Denies depression, memory loss, and suicidal ideas. ECOG performance status 1. Physical Exam: Vital Signs: Most Recent : Vitals: 09/25/24 0700 BP: 142/91 BP Location: Left arm Pulse: 88 Resp: 18 Temp: 36.5 ??C (97.7 ??F) TempSrc: Oral SpO2: 98% Weight: 91.9 kg (202 lb 9.6 oz) Constitutional: Patient is alert and in no acute distress Head: Normocephalic and atraumatic. Ears: Hearing grossly intact. Mouth/Throat: Oropharynx is clear and moist. No oropharyngeal exudate. There is no thrush or ulcerations Eyes: Conjunctivae and EOM are normal. Pupils are equal, round, and reactive to light. Neck: Normal range of motion. Neck supple. No JVD present. Cardiovascular: Regular rate and rhythm Tender to palpation at the level of the 5th rib in the sternum. Tenderness over the 7-8th rib on the right chest wall. Gynecomastia present. Pulmonary/Chest: Effort normal. Faint expiratory wheezes in the bases. Abdominal: Soft, bowel sounds normal, no distension or mass. There is no tenderness or guarding. Musculoskeletal: Significant tenderness over the low back and sternum. Neurological: Patient alert and oriented to person, place, and time. No cranial nerve deficit. Gaitnormal. Extremities: No edema. Skin: Skin is warm and dry. No rash or erythema Psychiatric: Mood, memory, affect and judgment normal. Laboratory: Lab Results Component Value Date WBC 5.9 09/25/2024 HGB 9.7 (L) 09/25/2024 HCT 30.5 (L) 09/25/2024 MCV 82.1 09/25/2024 LABPLAT 350 09/25/2024 Lab Results Component Value Date NEUTROABS 4.1 09/25/2024 Chemistry Component Value Date/Time SODIUM 135 09/25/2024 0743 POTASSIUM 4.2 09/25/2024 0743 CHLORIDE 98 09/25/2024 0743 CO2 30 09/25/2024 0743 BUNSER 5 (L) 09/25/2024 0743 CREATININE 0.73 (L) 09/25/2024 0743 GLUCOSE 99 09/25/2024 0743 Component Value Date/Time CALCIUM 9.3 09/25/2024 0743 ALKPHOS 172 (H) 09/25/2024 0743 AST 17 09/25/2024 0743 ALT 18 09/25/2024 0743 BILITOT 0.2 09/25/2024 0743 Radiology: CT 04/17/24 MRI Brain W WO Contrast 07/31/2024 COMPARISON: None Available. FINDINGS: A prior infarct is seen within the right superior cerebellum.Punctate foci of susceptibility in the left lateral ventricle/posterior body of the caudate and left superior frontal lobe reflect prior microhemorrhage. The scalp and calvarium are normal. The superior sagittal sinus demonstrates normal venous flow. The corpus callosum is normal in shape and signal intensity. There is a partially empty sella. The brainstem and craniocervical junction are unremarkable. Diffuse small foci of T2 prolongation in the periventricular and subcortical white matter aremost consistent with chronic small vessel ischemic change. There is parenchymal volume loss. Diffusi on weighted images reveal no hyperintensities to suggest acute cerebral infarction. The ventricles are normal in size and position without evidence of hydrocephalus. The paranasal sinuses are normal.The visualized portions of the mastoids are unremarkable. The orbits appear normal. Normal flow voids are demonstrated in the carotid arteries and basilar artery. There is no abnormal contrast enhancement. Impression: 1. No evidence of intracranial metastatic disease. 2. Advanced microvascular ischemic changes and prior right cerebellar infarct. PET/CT FDG Skull to Thigh 07/31/2024 COMPARISON: Chest CT dated 04/17/2024 FINDINGS: Markedly FDG avid left hilar mass with metabolic dimensions of 4.3 x 6.1 cm (SUV 15.2 on image 103). Confluent hypermetabolic soft tissue along the lefthilum/sternum may represent contiguous tumor involvement with confluent lymphadenopathy. Reduced left vocal cord FDG uptake is likely due to vocal cord paralysis due to left recurrent laryngeal nervecompression from the aortopulmonary lesions. There is markedly FDG avid left hilar, subcarinal, left supraclavicular and mediastinal lymphadenopathy. An index 1.6 x 1.8 m markedly FDG avid subcarinalnode (SUV 19.3, image 106). Mild heterogenous activity associated with a small left effusion which is new. Partial collapse of the lingula and the left upper lobe. Nodular hypermetabolic thickening of the anterior and lateral aspect of the left upper lobe. Diffuse intralobular septal groundglass/thickening involving the left upper lobe, new from prior chest CT Multiple right upper lobe moderate to markedly FDG avid nodules which appear new from 04/17/2024. An index nodule is a 4 mm right upper lobe nodule (SUV 7.2, image 83). Mildly FDG avid right lower lobe groundglass nodules are also seen. There are multiple, markedly FDG avid lytic osseous lesions. These include lesions involving the left 9th rib, sternum and sacrum, and possibly the right sharon-mandible (although there is mis-registration at this level due to patient motion). Notably, the right paracentral sacral lesion appears to efface/infiltrate the right S2 sacral foramina and with intraspinal extension. Multiple healed left lower rib fractures are noted. Markedly FDG avid right anterolateral/flank subcutaneous soft tissue deposit measuring 0.9 x 1.9 cm (image 190). There is a subjacent intramuscular deposit within the right abdominal oblique musculature. Markedly FDG avid nodularity of the right adrenal gland. An additional suspicious focus of FDG avidity is noted in the medial limb of the left adrenal gland. Focal areas of intense uptake within the gastroesophageal junction in the duodenum second portion. Long segment uptake within hepatic flexure/ascending hemicolon without discrete CT correlate.. Additional CT findings: Aortic calcifications. Aortobiiliac gastric ossifications. Diffuse sclerosis of the left hip joint. Trace mesenteric edema. Impression: 1. Overall disease progression since the CT dated 04/17/2024 with markedly FDG avid malignant left hilar mass and metastatic left supraclavicular, mediastinal, hilar juan, osseous, bilateral adrenal, subcutaneous/intramuscular deposits, and contralateral lung disease. 2. Small left pleural effusion with left upper pleural nodularity likely represents additional sites of malignancy. 3.Markedly FDG avid lytic sacral soft tissue lesion appears to efface/infiltrate the right S2 sacral foramina. Correlate with relevant neurological symptoms. 4. 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 The above results were discussed with Dr. Doan by the dictating physician at approximately 5 PM on 07-31-2024. Assessment: Mr. Calvo is a 63-year-old man with poorly differentiated non-small cell lung cancer. PET on 07/31/24 showed widespread disease, with metastases to multiple lymph nodes, bone, and a soft tissue lesion around the sacral spine whereas the brain MRI on the same day showed no intracranial metastases. Patient completed palliative radiation to the sternum and sacrum on 08/19/24 and started carboplatin plus nab-paclitaxel and pembrolizumab on 08/22/24. C1D8 was held on 08/29/24 due to atrial fibrillation with rapid ventricular response and was administered on 09/05/24. Treatment was complicated againfollowing the first cycle by pneumonia requiring hospitalization and antibiotic therapy. Patient is feeling well today and will continue treatment with C2. Chemotherapy will be dose reduced due to the recent infection and because of the decreased white blood cell count identified during the hospitalization. I confirmed that he is an established patient with Dr. Ian Lopez, geologist petroleum at [facility]([place], [place]). I encouraged Mr. Calvo to contact him for close follow up in light of the recent cardiac arrhythmia. Plan: C2D1 carboplatin (AUC 4) plus nab-paclitaxel (80 mg/m2) and pembrolizumab today Start calcium plus vitamin D Refill extended release morphine and oxycodone C2D8 on 10/03/[address] and RTC 10/17/24 for C3 He will call us in the interim for any questions, concerns, or worsening symptoms. He is agreeable with this plan of care. Jelena Quintana, MSN, ADVERTISING OPERATIONS COORDINATOR-C, AOCNP Nurse Practitioner in collaboration with Dr. Stan Meza Division of Oncology [facility] [employer] Cosigned by Stan Meza MD at 10/07/2024 7:46 PM DELIVERY DRIVER ASSISTANT VERY DRIVER ASSISTANT VERY DRIVER ASSISTANT documented in this encounter Miscellaneous Notes * Addendum Note - Jelena Quintana NP - 09/25/2024 8:00 AM CSTAddended by: JELENA QUINTANA on: 10/03/2024 08:37 AM Modules accepted: Orders VERY DRIVER ASSISTANT documented in this encounter Plan of Treatment Scheduled Orders Name Type Priority Associated Diagnoses Orde r Schedule CT Chest Abdomen Pelvis W Contrast Imaging Schedule MINNIE, Read MINNIE (Appt Today, Awaiting Results) 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) Expected: 10/17/2024, Expires: 09/23/2025 documented as of this encounter Results * (ABNORMAL) CBC with auto differential (10/03/2024 7:34 AM DELIVERY DRIVER ASSISTANT) WBC 3.8 3.8 - 9.9 K/cumm Comment:Testing performed by : [facility], [address] [place] [address] Hgb 9.0(L) 13.0 - 17.5 g/dL CERNER BJ Comment:Testing performed by : [facility], [address] [place] [address] Hct 27.9(L) 38.9 - 50.3 % CERNER BJ Comment:Testing performed by : [facility], [address] [place] [address] Plt 252 150 - 400 K/cumm CERNER BJ Comment:Testing performed by : [facility], [address] [place] [address] MPV 6.8 6.8 - 10.4 fL CERNER BJ Comment:Testing performed by : [facility], [address] [place] [address] RBC 3.40(L) 4.30 - 5.80 M/cumm CERNER BJ Comment:Testing performed by : [facility], [address] [place] [address] MCV 82.0 81.3 - 96.4 fL CERNER BJ Comment:Testing performed by : [facility], [address] [place] [address] MCH 26.6(L) 27.1 - 33.3 pg CERNER BJ Comment:Testing performed by : [facility], [address] [place] [address] MCHC 32.4 32.3 - 35.7 g/dL CERNER BJ Comment:Testing performed by : [facility], [address] [place] [address] RDW CV 17.7(H) 11.1 - 14.9 % CERNER BJ Comment:Testing performed by : [facility], [address] [place] [address] NRBC abs 0.00 0.00 - 0.01 K/cumm CERNER BJ Comment:Testing performed by : [facility], [address] [place] [address] Blood 10/03/2024 7:34 AM DELIVERY DRIVER ASSISTANT 10/03/2024 7:37 AM DELIVERY DRIVER ASSISTANT us Stan Meza MD LAB BLOOD ORDERABLES Yolette banda Result CHEMA BJ [facility] Department [place] [address] documented in this encounter Visit Diagnoses Diagnosis 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)- Primary documented in this encounter Historical Medications * This list may reflect changes made after this encounter. traMADoL (ULTRAM) 50 mg tablet every 12 hours senna (SENOKOT) 8.6 mg tablet daily LORazepam (ATIVAN) 0.5 mg tablet daily hydrOXYzine (VISTARIL) 100 mg capsule TAKE 1 CAPSULE (100MG) BY MOUTH EVERY 8 HOURS IF NEEDED FOR 30 DAYS 09/11/2024 doxycycline 100 mg tablet TAKE 1 TABLET BY MOUTH TWICE A DAY FOR 7 DAYS 09/15/2024 cefdinir (OMNICEF) 300 mg capsule TAKE 1 CAPSULE BY MOUTH EVERY 12 HOURS FOR 7 DAYS 09/15/2024 added in this encounter Orders Appointment Requests Count Last Ordered Date Fi rst Ordered Date ONCBCN LAB APPOINTMENT 1 10/03/2024 ONCBCN RETURN CHEMO 1.5HRS 1 10/03/2024 ONCBCN CLINIC APPOINTMENT REQUEST 1 024 documented in this encounter Care Teams Math Specialist Relationship Specialty Start Date End Date Matthew Mccabe MD [address] [place] [address] PCP - General Family Medicine 05/13/24 Stan Meza MD [address] [facility], [address] [place] [address] Medical Oncologist/Carpenter Helper Medical Oncology 06/28/24 documented as of this encounter
--- OUTSIDE RECORDS SUMMARY | 2024-10-30 07:02 | XMS_ITS | Encounter Summary ---
Author Organization [facility] Healthcare Address [address] [place] [address] Care Team Providers Care Promotions Executive Name Role Phone Matthew Mccabe MD Primary Care Prov ider Stan Meza MD Unavailable [phone] Encounter Details Date Type Department Care Team (Late st Contact Info) Description 09/17/2024 Documentation [facility] Outpatient Health - Palliative Care [address] [facility] [id number] Mary Ellen Mckeon MD [address] [place] [address] Social History Tobacco Use Types Packs/Day Years [...] on file Legal Sex Male 6:04 PM ASSESSMENT RN Gender Identity Not on file Sexual Orientation Not on file documented as of this encounter Progress Notes * Mary Ellen Mckeon MD - 09/17/2024 1:17 PM CST IDT team contacted patient for tech support with visit but he was unable to join. Will attempt to reschedule SSMENT RN documented in this encounter Plan of Treatment Not on file documented as of this encounter Visit Diagnoses Not on filedocumented in this encounter Care Teams Promotions Executive Relationship Specialty Start Date End Date Matthew Mccabe MD [address] [place] [address] PCP - General Family Medicine 05/13/24 Stan Meza MD [address] [facility]ICAL [facility]COLOGY, [address] [place] [address] Medical Oncologist/Founding Partner Medical Oncology 06/28/24 documented as of this encounter
--- OUTSIDE RECORDS SUMMARY | 2024-10-30 07:02 | XMS_ITS | Encounter Summary ---
Author Organization [facility] Address [address] [place] [address] Phone Care Team Providers Care Casting And Curing Operator Name Role Phone Matthew Mccabe MD Primary Care Prov ider Stan Meza MD Unavailable [phone] Encounter Details Date Type Department Care Team (Late st Contact Info) Description 09/17/2024 Social Work [facility] Oncology [facility] Floor 5 [place] [address] Sarah Brunner, LAURIE Social History [...] on file Legal Sex Male 6:04 PM SILHOUETTE ARTIST Gender Identity Not on file Sexual Orientation Not on file documented as of this encounter Progress Notes * Sarah Brunner LCSW - 09/17/2024 11:59 PM CST ANGELES Chicken Handler Brief Intervention Social Work received phone call from patient today regarding: Transportation Assistance Patient called and confirmed that SW will assist him with setting up transportation for 09/25 appointments. SW told patient he will be picked up around 6am. He thanked SW for the information and willreach out with any additional questions or concerns. OUETTE ARTIST documented in this encounter Plan of Treatment Not on file documented as of this encounter Visit Diagnoses Not on filedocumented in this encounter Care Teams Casting And Curing Operator Relationship Specialty Start Date End Date Matthew Mccabe MD [address] [place] [address] PCP - General Family Medicine 05/13/24 Stan Meza MD [address] [facility] MEDICAL ONCOLOGY, [address], [address] [place] [address] Medical Oncologist/Brokerage Office Manager Medical Oncology 06/28/24 documented as of this encounter
--- OUTSIDE RECORDS SUMMARY | 2024-10-30 07:02 | XMS_ITS ---
Author Organization [facility] Address [address] [place] [address] Care Team Providers Care Cardiovascular Invasive Specialist Name Role Phone Matthew Mccabe MD Primary Care Prov ider Stan Meza MD Unavailable [phone] Active Problems Problem Noted Date Diagnosed Date Cancer related pain 08/15/2024 Prophylaxis for chemotherapy-induced neutropenia 08/01/2024 Primary cancer of left lower lobe of lung 2023 Cancer Staging:Clinical:Stage IVB(pM1c) - Unsigned Localized enlarged lymph nodes 05/28/2024 Hilar mass 05/28/2024 Current Oncology Plans IV Maintenance Therapy Plan* Plan Start Date:10/03/2024 Plan Provider:Stan Meza MD Linked Problems 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) Treatment Medications No medications scheduled. Pembrolizumab / Albumin-bound PACLItaxel (Abraxane) / CARBOplatin 21 Day Cycles then Pembrolizumab 21 Day Cycles - Non-Small Cell Lung* Plan Start Date: 08/21/2024 Plan Provider:Stan Meza MD Linked Problems 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) Treatment Medications Current Day (Day 1 , Cycle 3 - Planned for 11/07/2024) Next Day (Day 8, Cycle 3 - Planned for 11/14/2024) albumin-bound PACLItaxel (ABRAXANE)CARBOplatin (PARAPLATIN)CARBOplatin (PARAPLATIN) IVPB in 250 mLdexAMETHasone (DECADRON)pembrolizumab (KEYTRUDA) ALBUMIN-BOUND PACLItaxel (ABRAXANE) 5 mg/mL syringe 170 mgCARBOplatin (PARAPLATIN) 600 mg in sodium chloride 0.9% 250 mL IVPB (By AUC)pembrolizumab (KEYTRUDA) 200 mg in sodium chloride 0.9% 100 mL ALBUMIN-BOUND PACLItaxel (ABRAXANE) 5 mg/mL syringe 170 mg Past Plans Oncology Chemotherapy Treatment Plan Name Start Date Discontinue Date Treatment Medications Discontinue Reason Plan Provider Cycles Pembrolizumab / PACLItaxel / CARBOplatin 21 Day Cycles then Pembrolizumab 21 Day Cycles - Non-Small Cell Lung 08/22/2008/20/2024 CARBOplatin (PARAPLATIN)P ACLitaxel (TAXOL)pembro lizumab (KEYTRUDA) Provider Discretion Stan Pastrana rn, MD Treatment not started Pembrolizumab / Albumin-bound PACLItaxel (Abraxane) / CARBOplatin 21 Day Cycles then Pembrolizumab 21 Day Cycles - Non-Small Cell Lung 08/22/2008/20/2024 albumin-bound PACLItaxel (ABRAXANE)CAR BOplatin (PARAPLATIN)p embrolizumab (KEYTRUDA) Financial Stan Pastrana rn, MD Treatment not started Pembrolizumab / Pemetrexed / CARBOplatin 21 day cycles - Non-Small Cell Lung 08/15/2008/20/2024 CARBOplatin (PARAPLATIN)p embrolizumab (KEYTRUDA)PEM Etrexed (ALIMTA) Provider Discretion Stan Pastrana rn, MD 1 of 24 cycles started Radiation Treatments * Plan Last Treated On Elapsed Days Fractions Treated Prescribed Fraction Dose Prescribed Total Dose SACRUM 08/19/2024 4 5 400 cGy 2,000 cGy STERNUM 08/19/2024 4 5 400 cGy 2,000 cGy Reference Point Last Treated On Elapsed Days Session Dose Total Dose SACRUM_DPV 08/19/2024 4 0 cGy 2,000 cGy STERNUM_DPV 08/19/2024 4 0 cGy 2,000 cGy Lifetime Dose Tracking * Chemical Lifetime Dose Automatic Entry Manual Entr y DLP 351 mGycm 351 mGycm 0 mGycm
--- OUTSIDE RECORDS SUMMARY | 2024-10-30 07:02 | XMS_ITS | Encounter Summary ---
Author Organization [facility] Address [address] [place] [address] Care Team Providers Care Packaging Sales Consultant Name Role Phone Matthew Mccabe MD Primary Care Prov ider Stan Meza MD Unavailable [phone] Reason for Visit * Episode Based Medications (Routine) - Authorized Specialty Diagnoses / Procedures Referred By Contac t Referred To Contact Diagnoses 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) Stan Meza MD [address] [place] [address] Phone: tel: fax: [facility] - Infusion [address] [facility] Floor 5 [place] [address] Referral ID Status Reason Start Date Expiration Date V isits Requested Visits Authorized [id number] Authorized 08/20/2024 02/06/2025 1 50 Encounter Details Date Type Department Care Team (Late st Contact Info) Description 10/03/2024 7:30 AM BALL SHAGGER Lab [facility] - Lab Collection [address] [facility] Floor 5 [place] [address] Primary cancer of left lower lobe of [...] on file Legal Sex Male 6:04 PM BALL SHAGGER Gender Identity Not on file Sexual Orientation Not on file documented as of this encounter Plan of Treatment Not on file documented as of this encounter Procedures Procedure Name Priority Date/Time Associated Diagnosis Comments DIFFERENTIAL AUTO Routine 10/03/2024 7:3 4 AM BALL SHAGGER 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) CBC WITH AUTO DIFFERENTIAL Routine 10/03/2024 7:34 AM BALL SHAGGER 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) documented in this encounter Results * Differential, auto (10/03/2024 7:34 AM BALL SHAGGER) Neutrophil abs 2.5 1.5 - 6.5 K/cumm Comment:Testing performed by : [facility] Heme Lab, [address] [place] [address] Lymphocyte abs 0.8 0.8 - 3.3 K/cumm CERNER BJ Comment:Testing performed by : [facility], [address] [place], [place] [phone] Monocyte abs 0.4 0.2 - 0.8 K/cumm CERNER BJ Comment:Testing performed by : [facility], [address] [place] [phone] Eosinophil abs 0.1 0.0 - 0.5 K/cumm CERNER BJ Comment:Testing performed by : [facility], [address] [place] [phone] Basophil abs 0.0 0.0 - 0.1 K/cumm CERNER BJ Comment:Testing performed by : [facility], [address], [place] [address] Neutrophil pct 65.4 % CERNER BJ Comment: Interpretive Data Percent cell count reference ranges are not reported, since discordance with absolute values may lead to misinterpretation of CBC data. Current Interpretive Data was last revised on 2018. Testing performed by: [facility], [address] [place] [phone] Lymphocyte pct 21.8 % CERNER BJ Comment: Interpretive Data Percent cell count reference ranges are not reported, since discordance with absolute values may lead to misinterpretation of CBC data. Current Interpretive Data was last revised on 2018. Testing performed by: [facility], [address] [place] [phone] Monocyte pct 10.8 % CERNER BJ Comment: Interpretive Data Percent cell count reference ranges are not reported, since discordance with absolute values may lead to misinterpretation of CBC data. Current Interpretive Data was last revised on 2018. Testing performed by: [facility], [address] [place] [phone] Eosinophil pct 1.8 % CERNER BJ Comment: Interpretive Data Percent cell count reference ranges are not reported, since discordance with absolute values may lead to misinterpretation of CBC data. Current Interpretive Data was last revised on 2018. Testing performed by: [facility], [address] [place] [phone] Basophil pct 0.2 % CERNER BJ Comment: Interpretive Data Percent cell count reference ranges are not reported, since discordance with absolute values may lead to misinterpretation of CBC data. Current Interpretive Data was last revised on 2018. Testing performed by: [facility], [address] [place] [phone] Blood 10/03/2024 7:34 AM BALL SHAGGER 10/03/2024 7:37 AM BALL SHAGGER us Stan Meza MD LAB BLOOD ORDERABLES Yolette l Result [facility] One [facility] Department of Laboratories [place] [id number] * (ABNORMAL) CBC with auto differential (10/03/2024 7:34 AM BALL SHAGGER) WBC 3.8 3.8 - 9.9 K/cumm Comment:Testing performed by : [facility], [address] [place] [address] Hgb 9.0(L) 13.0 - 17.5 g/dL CERNER BJ Comment:Testing performed by : [facility], [address] [place] [address] Hct 27.9(L) 38.9 - 50.3 % CERNER BJ Comment:Testing performed by : [facility], [address] [place] [address] Plt 252 150 - 400 K/cumm CERNER BJ Comment:Testing performed by : [facility], [address] [place] [address] MPV 6.8 6.8 - 10.4 fL CERNER BJ Comment:Testing performed by : [facility], [address] [place] [address] RBC 3.40(L) 4.30 - 5.80 M/cumm CERNER BJ Comment:Testing performed by : [facility], [address] [place] [address] MCV 82.0 81.3 - 96.4 fL CERNER BJ Comment:Testing performed by : [facility], [address] [place] [address] MCH 26.6(L) 27.1 - 33.3 pg CERNER BJ Comment:Testing performed by : [facility], [address] [place] [address] MCHC 32.4 32.3 - 35.7 g/dL CERNER BJ Comment:Testing performed by : [facility], [address] [place] [address] RDW CV 17.7(H) 11.1 - 14.9 % CERNER BJ Comment:Testing performed by : [facility], [address] [place] [phone] NRBC abs 0.00 0.00 - 0.01 K/cumm [facility] Comment:Testing performed by : [facility], [address] [place] [phone] Blood 10/03/2024 7:34 AM BALL SHAGGER 10/03/2024 7:37 AM BALL SHAGGER us Stan Meza MD LAB BLOOD ORDERABLES Yolette l Result [facility] One [facility] [place] [address] documented in this encounter Visit Diagnoses Diagnosis 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) documented in this encounter Orders Appointment Requests Count Last Ordered Date Fi rst Ordered Date ONCBCN LAB APPOINTMENT 1 10/03/2024 documented in this encounter Care Teams Packaging Sales Consultant Relationship Specialty Start Date End Date Matthew Mccabe MD [address] [place] [address] PCP - General Family Medicine 05/13/24 Stan Meza MD [address] [facility] DIV IM MEDICAL ONCOLOGY, [address] [place] [address] Medical Oncologist/Rewriter Medical Oncology 06/28/24 documented as of this encounter
--- OUTSIDE RECORDS SUMMARY | 2024-10-30 07:02 | XMS_ITS | Encounter Summary ---
Author Organization [facility] Address [address] [place] [address] Phone Care Team Providers Care Folder Inspector Name Role Phone Matthew Mccabe MD Primary Care Prov ider Stan Meza MD Unavailable [phone] Encounter Details Date Type Department Care Team (Late st Contact Info) Description 09/16/2024 Orders Only [facility] Oncology [address] [facility] Floor [address] [place] [address] Sasha Hernandes RN Primary cancer of left lower lobe of [...] on file Legal Sex Male 6:04 PM MANAGEMENT TRAINER Gender Identity Not on file Sexual Orientation Not on file documented as of this encounter Plan of Treatment Not on file documented as of this encounter Results * (ABNORMAL) Comprehensive metabolic panel (09/25/2024 7:43 AM MANAGEMENT TRAINER) Sodium 135 135 - 145 mmol/L Potassium, pl 4.2 3.3 - 4.9 mmol/L [facility] Chloride 98 97 - 110 mmol/L [facility] CO2 30 22 - 32 mmol/L [facility] Anion gap 7 2 - 15 mmol/L [facility] BUN 5(L) 6 - 25 mg/dL [facility] Creatinine 0.73(L) 0.80 - 1.30 mg/dL [facility] Glucose 99 70 - 199 mg/dL [facility] Comment: Interpretive Data Fasting glucose >/= [...] 2022. Calcium 9.3 8.5 - 10.3 mg/dL [facility] Bilirubin, total 0.2 0.1 - 1.2 mg/dL [facility] Protein, pl 6.6 6.5 - 8.5 g/dL [facility] Albumin 3.3(L) 3.5 - 5.0 g/dL [facility] Alk phos 172(H) 40 - 130 Units/L [facility] ALT 18 7 - 55 Units/L [facility] AST 17 10 - 50 Units/L [facility] Blood 09/25/2024 7:43 AM MANAGEMENT TRAINER 09/25/2024 7:51 AM MANAGEMENT TRAINER us Stan Meza MD LAB BLOOD ORDERABLES Yolette banda Result [facility] One [facility] Department [place] [address] * (ABNORMAL) CBC with auto differential (09/25/2024 7:43 AM MANAGEMENT TRAINER) WBC 5.9 3.8 - 9.9 K/cumm Comment:Testing performed by : [facility] Heme Lab, [address] [place] [address] Hgb 9.7(L) 13.0 - 17.5 g/dL CERNER BJ Comment:Testing performed by : [facility], [address] [place] [address] Hct 30.5(L) 38.9 - 50.3 % CERALDO BJ Comment:Testing performed by : [facility], [address] [place] [address] Plt 350 150 - 400 K/cumm CERALDO BJ Comment:Testing performed by : [facility], [address] [place] [address] MPV 6.5(L) 6.8 - 10.4 fL C[facility]ER BJ Comment:Testing performed by : [facility]e Lab, [address] [place] [address] RBC 3.72(L) 4.30 - 5.80 M/cumm [facility] Comment:Testing performed by : [facility]e Lab, [address] [place] [address] MCV 82.1 81.3 - 96.4 fL CERNER BJ Comment:Testing performed by : [facility]e Lab, [address] [place] [address] MCH 26.1(L) 27.1 - 33.3 pg CERNER BJ Comment:Testing performed by : [facility], [address] [place] [address] MCHC 31.8(L) 32.3 - 35.7 g/dL C[facility] BJ Comment:Testing performed by : [facility]e [facility], [address] [place] [address] RDW CV 17.1(H) 11.1 - 14.9 % [facility] Comment:Testing performed by : [facility] Heme Lab, [facility] [place] [address] NRBC abs 0.00 0.00 - 0.01 K/cumm [facility] Comment:Testing performed by : [facility]e [facility], [facility] [place] [address] Blood 09/25/2024 7:43 AM MANAGEMENT TRAINER 09/25/2024 7:48 AM MANAGEMENT TRAINER us Stan Meza MD LAB BLOOD ORDERABLES Yolette l Result [facility] One [facility] Department [place] [address] documented in this encounter Visit Diagnoses Diagnosis 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)- Primary documented in this encounter Orders Appointment Requests Count Last Ordered Date Fi rst Ordered Date ONCBCN CLINIC APPOINTMENT REQUEST 1 024 ONCBCN LAB APPOINTMENT 1 09/25/2024 ONCBCN RETURN CHEMO 3HRS 1 09/25/2024 documented in this encounter Care Teams Folder Inspector Relationship Specialty Start Date End Date Matthew Mccabe MD [address] [place] [address] PCP - General Family Medicine 05/13/24 Stan Meza MD [address] [place] [address] DIV IM MEDICAL ONCOLOGY, [address] [place] [address] Medical Oncologist/Brimming Machine Operator Medical Oncology 06/28/24 documented as of this encounter
--- OUTSIDE RECORDS SUMMARY | 2024-10-30 07:02 | XMS_ITS | Encounter Summary ---
Author Organization [facility] Address [address] [place] [address] Phone Care Team Providers Care Splitting Machine Operator Name Role Phone Matthew Mccabe MD Primary Care Prov ider Stan Meza MD Unavailable [phone] Encounter Details Date Type Department Care Team (Late st Contact Info) Description 09/06/2024 Telephone [facility] Oncology [address] [place] [id number] Sasha Hernandes, RN Social History Tobacco Use Types Packs/Day [...] on file Legal Sex Male 6:04 PM TOP SCREW Gender Identity Not on file Sexual Orientation Not on file documented as of this encounter Miscellaneous Notes * Telephone Encounter - Sasha Hernandes RN - 09/06/2024 9:40 AM TOP SCREW Call to pt to check on constipation as reported by infusion nurse yesterday. Pt taking senna-docusate each morning, instructed him to increase to twice per day as needed. Pt verbalized understanding. SCREW documented in this encounter Plan of Treatment Not on file documented as of this encounter Visit Diagnoses Not on filedocumented in this encounter Care Teams Splitting Machine Operator Relationship Specialty Start Date End Date Matthew Mccabe MD [address] [place] [address] PCP - General Family Medicine 05/13/24 Stan Meza MD [address] [facility] IM MEDICAL ONCOLOGY, [address] [place] [address] Medical Oncologist/Microbiology Lab Assistant Medical Oncology 06/28/24 documented as of this encounter
--- OUTSIDE RECORDS SUMMARY | 2024-10-30 07:02 | XMS_ITS | Encounter Summary ---
Author Organization [facility] Address [address] [place] [address] Phone Care Team Providers Care Senior Software Quality Analyst Name Role Phone Matthew Mccabe MD Primary Care Prov ider Stan Meza MD Unavailable [phone] Reason for Visit * Episode Based Medications (Routine) - Authorized Specialty Diagnoses / Procedures Referred By Contac t Referred To Contact Diagnoses 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) Stan Meza MD [address] [place] [address] Phone: tel: fax: [facility] [place] - Infusion [address] [facility] [address] [place] [address] Referral ID Status Reason Start Date Expiration Date V isits Requested Visits Authorized [id number] Authorized 08/20/2024 02/06/2025 1 50 Encounter Details Date Type Department Care Team (Late st Contact Info) Description 09/05/2024 7:30 AM CUTTER TENDER Lab [facility] Oncology Lab [address] [facility] Floor [address] [place] [address] Primary cancer of left lower lobe of [...] on file Legal Sex Male 6:04 PM CUTTER TENDER Gender Identity Not on file Sexual Orientation Not on file documented as of this encounter Plan of Treatment Not on file documented as of this encounter Visit Diagnoses Diagnosis 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) documented in this encounter Orders Appointment Requests Count Last Ordered Date Fi rst Ordered Date ONCBCN LAB APPOINTMENT 1 09/05/2024 documented in this encounter Care Teams Senior Software Quality Analyst Relationship Specialty Start Date End Date Matthew Mccabe MD [address] [place] [address] PCP - General Family Medicine 05/13/24 Stan Meza MD [address] [facility] MEDICAL ONCOLOGY, [address] [place] [address] Medical Oncologist/Stock Preparer Medical Oncology 06/28/24 documented as of this encounter
--- OUTSIDE RECORDS SUMMARY | 2024-10-30 07:02 | XMS_ITS | Referral Summary ---
Author Organization [facility] Address [address] [place] [phone] Care Team Providers Care Button Clamper Name Role Phone Matthew Mccabe MD Primary Care Prov ider Stan Meza MD Unavailable [phone] Encounters Date Type Department Care Team Description 10/29/2024 Social Work [facility] Oncology [facility] [address] [phone] Carissa Long, B2B OUTSIDE SALES REPRESENTATIVE 10/29/2024 Telephone [facility] Oncology [address] [place] [phone] Kelly Montes CMA 10/28/2024 Telephone [facility] Oncology [address] [place] [phone] Maddy Freire, ALYX 10/25/2024 Telephone [facility] Oncology [facility] [address] [phone] Sasha Hernandes RN 10/25/2024 2:15 PM BLENDING TANK TENDER HELPER - 10/25/2024 11:59 PM BLENDING TANK TENDER HELPER Hospital Encounter [facility] Rad[facility] [address] [place] [address] Diagnosis unknown Discharge Disposition: Discharge to home or self care 10/24/2024 Telephone [facility] Nutrition Counseling 1 [place] [phone] Dagmar Pickard, RD 10/24/2024 Documentation [facility] Oncology [facility] Floor 8 [place] [address] Olimpia Parr, RMA 10/18/2024 Documentation [facility] Oncology [facility] Floor 5 [place] [address] Sarah Brunner, B2B OUTSIDE SALES REPRESENTATIVE 10/17/2024 Telephone [facility] Nutrition Counseling 1 [facility] [place] [address] Dagmar Pickard, RD 10/17/2024 Orders Only [facility] Oncology [address] [place] [address] Floor 5 [place] [address] Pool Hong, [facility] 10/15/2024 Documentation [facility] - [address] [place] [id number] Gayatri Garza, ALYX 10/14/2024 Social Work [facility] Oncology [facility] Floor 5 [place] [address] Sarah Brunner, B2B OUTSIDE SALES REPRESENTATIVE 10/10/2024 Telephone [facility] Outpatient Health - Palliative Care [address] [facility] [place] [address] Mariah Altamirano, RN 10/03/2024 Telephone [facility] ([facility]) - [facility] ENT [address] [facility] 11th [place] [address] [place] [address] Alexsandra Augustine MS 10/03/2024 7:30 AM BLENDING TANK TENDER HELPER Lab [facility] - Lab Collection [facility] Floor 5 [place] [address] 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) 10/03/2024 8:30 AM BLENDING TANK TENDER HELPER Infusion [facility] - Infusion [address] [facility] Floor 5 [place] [address] 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) (Primary Dx) 09/30/2024 Social Work [facility] Oncology [address] [facility] Floor 5 [place] [address] Sarah Brunner, B2B OUTSIDE SALES REPRESENTATIVE 09/25/2024 9:00 AM BLENDING TANK TENDER HELPER Infusion [facility] - Infusion [address] [facility] Floor 5 [place] [address] 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) (Primary Dx) 09/25/2024 7:00 AM BLENDING TANK TENDER HELPER Lab [facility] - Lab Collection [address] [facility] Floor 5 [place] [address] 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) 09/25/2024 8:00 AM BLENDING TANK TENDER HELPER Office Visit [facility] Oncology [address] [place] [address] 5 [place] [address] Stan Meza MD 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) (Primary Dx) 09/23/2024 Documentation [facility] Palliative Care [address] [place] [phone] Gayatri Garza RN 09/20/2024 Documentation [facility] Oncology [address] [place] [address] 5 [place] [address] Sarah Brunner, B2B OUTSIDE SALES REPRESENTATIVE 09/17/2024 Social Work [facility] Oncology [address] [place] [phone] Sarah Brunner, B2B OUTSIDE SALES REPRESENTATIVE 09/17/2024 Documentation [facility] Outpatient Health - Palliative Care [address] [facility] [place] [address] Mary Ellen Mckeon MD 09/17/2024 11:19 AM BLENDING TANK TENDER HELPER - 09/17/2024 11:59 PM BLENDING TANK TENDER HELPER Hospital Encounter [facility] ([facility]) [address] [place] [address] Discharge Disposition: Discharge to home or self care 09/16/2024 Orders Only [facility] Oncology [address] [place] [address] 5 [place] [address] Sasha Hernandes RN 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) (Primary Dx) 09/11/2024 Telephone [facility] for Outpatient Health - Palliative Care [address] [place] [address] [place] [address] Mariah Altamirano, RN 09/10/2024 Telephone [facility] for Outpatient Health - Palliative Care [address] [place] [address] Mariah Altamirano, RN 09/09/2024 Telephone [facility] for Outpatient Health - Palliative Care [address] [place] [address] [place] [address] Mariah Altamirano, RN 09/06/2024 Telephone [facility] Oncology [address] [place] [phone] Sasha Hernandes RN 09/05/2024 7:15 AM BLENDING TANK TENDER HELPER Lab [facility] - Lab Collection [address] [place] [address] 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) 09/05/2024 9:30 AM BLENDING TANK TENDER HELPER Infusion [facility] - Infusion [address] [place] [address] 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) (Primary Dx) 09/05/2024 7:30 AM BLENDING TANK TENDER HELPER Lab [facility] Oncology Lab [address] [place] [phone] 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) 09/05/2024 8:40 AM BLENDING TANK TENDER HELPER Office Visit [facility] Oncology [address] [place] [phone] Stan Meza MD 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) (Primary Dx) 09/04/2024 Social Work [facility] Oncology [address] [place] [phone] Sarah Brunner, LAURIE 09/02/2024 Social Work [facility] Oncology [address] [place] [phone] aSrah Brunner, LAURIE 08/30/2024 Documentation [facility] Oncology [address] [facility] [place] [address] Sasha Hernandes RN Prior Auth 08/29/2024 11:56 AM CDT - 08/29/2024 11:59 PM CDT Hospital Encounter [facility] [address] [place] [address] Emergency, Room R Discharge Disposition: Discharge to home or self care 08/29/[address] Advanced [facility] 1st [place] [address] Mary Ellen Galvez 08/29/2024 12:05 PM CDT - 08/29/2024 4:14 PM CDT Emergency [facility] Emergency Department 1 [place] [address] Olivia Manley MD Char, Douglas M., MD Atrial fibrillation, unspecified type (HCC) (Primary Dx); Malignant neoplasm of upper lobe of left lung (HCC); Left against medical advice Discharge Disposition: Left Against Medical Advice 08/29/2024 11:00 AM CDT Office Visit [facility] Oncology [facility] Floor 5 [place] [address] Stan Meza MD 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) (Primary Dx) 08/29/2024 10:30 AM CDT Lab [facility] - Lab Collection [address] [facility] Floor 5 [place] [address] 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) 08/26/2024 Social Work [facility] Oncology [facility] Floor 5 [place] [address] Sarah Brunner LCSW 08/26/2024 Telephone [facility] ([facility]) - [facility] [address] [facility] Advanced Medicine 11th [place] [address] [place] [address] Alexsandra Augustine MS 08/26/2024 Telephone [facility] ([facility]) - [facility] [address] [facility] Advanced [facility] 11th [place] [address] [place] [address] Alexsandra Augustine, 08/23/2024 Social Work [facility] Oncology [facility] Floor 5 [place] [address] Sarah Brunner LCSW 08/23/2024 Telephone [facility] Outpatient Health - Palliative Care [address] [facility] [place] [address] Eliana Eldridge 08/23/2024 Telephone [facility] Oncology [address] [place] [address] Kaycee Jenkins RMA cough and hoarseness 08/22/2024 Documentation [facility] Nutrition Counseling 1 [place] [address] Dagmar Pickard, LARRY 08/22/2024 11:15 AM CDT Lab [facility] - Lab Collection [address] [place] [address] Floor 5 [place] [address] 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) 08/22/2024 12:00 PM CDT Infusion [facility] - Infusion [address] [place] [address] Floor 5 [place] [address] 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) (Primary Dx) 08/22/2024 10:00 AM CDT Lab [facility] Oncology Lab [facility] Floor [address] [place] [phone] 08/22/2024 11:00 AM CDT Office Visit [facility] Oncology [facility] Floor [address] [place] [phone] Stan Meza MD 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) (Primary Dx); Voice hoarseness 08/20/2024 Documentation [facility] Nutrition Counseling 1 [place] [address] Joann Olivares, LARRY 08/19/2024 Orders Only RAD ONC TREATMENTS Miscellaneous, Not In File 08/19/2024 Completion of Therapy [facility] Advanced Medicine Radiation On[facility] [place] [address] Jeffrey Ham MD 08/16/2024 Documentation [facility] Radiation Oncology [address] [place] [address] Delmi Saxena, B2B OUTSIDE SALES REPRESENTATIVE 08/16/2024 Orders Only RAD ONC TREATMENTS Miscellaneous, Not In File 08/16/2024 Telephone [facility] Oncology [address] [place] [phone] Gregroy Kaycee Mickie 08/16/2024 11:15 AM CDT - 08/16/2024 11:59 PM CDT Hospital Encounter [facility] Advanced [facility] Radiation Oncology [address] [place] [address] Jeffrey Ham MD Discharge Disposition: Discharge to home or self care 08/15/2024 Documentation [facility] Oncology [address] [place] [phone] Sarah Brunner, B2B OUTSIDE SALES REPRESENTATIVE 08/15/2024 Orders Only RAD ONC TREATMENTS Miscellaneous, Not In File 08/15/2024 6:45 AM CDT Lab [facility] - Lab Collection [address] [place] [address] 5 [place] [address] Prophylaxis for chemotherapy-ashley kristine neutropenia; 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) 08/15/2024 8:50 AM CDT - 08/15/2024 11:59 PM CDT Hospital Encounter [facility] Advanced Medicine Radiation Oncology [address] [place] [address] Jeffrey Ham MD Discharge Disposition: Discharge to home or self care 08/15/2024 8:00 AM CDT Office Visit [facility] Oncology [address] [place] [address] 5 [place] [phone] Stan Meza MD 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) (Primary Dx); Prophylaxis for chemotherapy-ashley kristine neutropenia 08/14/2024 Orders Only RAD ONC TREATMENTS Miscellaneous, Not In File 08/14/2024 9:06 AM CDT - 08/14/2024 11:59 PM CDT Hospital Encounter [facility] Advanced Medicine Radiation Oncology [address] [place] [address] Jeffrey Ham MD Discharge Disposition: Discharge to home or self care 08/13/2024 Orders Only RAD ONC TREATMENTS Miscellaneous, Not In File 08/13/2024 8:19 AM CDT - 08/13/2024 11:59 PM CDT Hospital Encounter [facility] Advanced Medicine Radiation Oncology [address] [place] [address] Jeffrey Ham MD Discharge Disposition: Discharge to home or self care 08/12/2024 8:00 PM CDT - 08/12/2024 11:59 PM CDT Hospital Encounter [facility] Advanced [facility] Radiation Oncology [address] [place] [address] Jeffrey Ham MD Discharge Disposition: Discharge to home or self care 08/12/2024 OTV [facility] Advanced Medicine Radiation Oncology [address] [place] [address] Jeffrey Ham MD 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) (Primary Dx) 08/12/2024 Orders Only RAD ONC TREATMENTS Miscellaneous, Not In File 08/12/2024 Telephone [facility] Nutrition Counseling 1 [place] [address] 08/12/2024 3:06 PM CDT - 08/12/2024 11:59 PM CDT Hospital Encounter [facility] Advanced Medicine Radiation Oncology [address] [place] [address] Jeffrey Ham MD Discharge Disposition: Discharge to home or self care 08/12/2024 Documentation [facility] Radiation Oncology [address] [facility] [place] [address] Anne Marie Harmon LCSW 08/09/2024 7:53 AM CDT - 08/09/2024 11:59 PM CDT Hospital Encounter [facility] Radiation Oncology [address] [facility] [place] [place] [address] Jeffrey Ham MD Discharge Disposition: Discharge to home or self care 08/06/2024 Telephone [facility] Nutrition Counseling 1 [place] [address] 08/06/2024 Telephone [facility] Oncology [address] [place] [phone] Angelika Curran CMA 08/02/2024 Documentation [facility] Advanced Medicine Radiation Oncology [address] [place] [address] Anne Marie Harmon LCSW 08/01/2024 10:00 AM CDT Consult [facility] Advanced Medicine Radiation Oncology [address] [place] [address] Jeffrey Ham MD 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) (Primary Dx); 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) 08/01/2024 8:15 AM CDT Lab [facility] - Lab Collection [address] [place] [address] Floor 5 [place] [address] 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) 08/01/2024 9:20 AM CDT Office Visit [facility] Oncology [address] [place] [address] Floor 5 [place] [address] Stan Meza MD Prophylaxis for chemotherapy-ashley kristine neutropenia (Primary Dx); 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) 07/31/2024 Telephone [facility] Oncology [address] [place] [address] 5 [place] [address] Sasha Hernandes RN 07/31/2024 12:00 PM CDT - 07/31/2024 11:59 PM CDT Hospital Encounter [facility] - MRI [address] Floor 8 [place] [address] 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) Discharge Disposition: Discharge to home or self care 07/31/2024 1:24 PM CDT - 07/31/2024 11:59 PM CDT Hospital Encounter [facility] - PET [address] Floor 8 [place] [address] Discharge Disposition: Discharge to home or self care 07/31/2024 1:24 PM CDT - 07/31/2024 11:59 PM CDT Hospital Encounter [facility] - PET [address] Floor 8 [place] [address] 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) Discharge Disposition: Discharge to home or self care from Last 3 Months Allergies Active Allergy Reactions Criticality Noted Date Comments Lisinopril Anaphylaxis,Unknown High 03/27/2015 Penicillins Anaphylaxis,Swelling,Unknown High 2011 Medications ziprasidone (GEODON) 80 mg capsule Take 1 capsule (80 mg total) by mouth 2 (two) times a day with meals Active busPIRone (BUSPAR) 7.5 mg tablet Take 1 tablet (7.5 mg total) by mouth 2 (two) times a day Active atorvastatin (LIPITOR) 40 mg tablet Take 1 tablet (40 mg total) by mouth daily Active carvediloL (COREG) 12.5 mg tablet Take 1 tablet (12.5 mg total) by mouth 2 (two) times a day with meals 01/29/20 24 Active eplerenone (INSPRA) 25 mg tablet Take 1 tablet (25 mg total) by mouth daily 01/29/20 24 Active omeprazole (PriLOSEC) 40 mg capsule Take 1 capsule (40 mg total) by mouth daily before breakfast 05/14/20 19 Active aspirin 81 mg chewable tablet Take 1 tablet (81 mg total) by mouth daily 02/14/20 23 Active albuterol HFA (PROVENTIL HFA,VENTOLIN HFA,PROAIR HFA) 90 mcg/actuation inhaler Inhale 2 puffs every 6 (six) hours as needed 06/03/20 19 Active alfuzosin ER (UROXATRAL) 10 mg 24 hr tablet Take 1 tablet (10 mg total) by mouth daily Active acetaminophen 500 mg capsule Take 1 capsule (500 mg total) by mouth every 4 (four) hours as needed Active albuterol 2.5 mg /3 mL (0.083 %) nebulizer solution Take 3 mL (2.5 mg total) by nebulization every 4 (four) hours as needed for shortness of breath or wheezing Active Symbicort 160-4.5 mcg/actuation inhaler Inhale 2 puffs daily 0 23 Active cholecalciferol (VITAMIN D-3) 2000 unit capsule 02/21/20 24 Active lamoTRIgine (LaMICtal) 100 mg tablet Take 1 tablet (100 mg total) by mouth 2 (two) times a day Active latanoprost (XALATAN) 0.005 % ophthalmic solution 1 drop nightly 01/26/20 19 Active losartan (COZAAR) 50 mg tablet Take 1 tablet (50 mg total) by mouth daily 05/27/20 24 Active triamcinolone (KENALOG) 0.1 % cream Apply topically 2 (two) times a day 08/16/20 19 Active varenicline tartrate (CHANTIX) 1 mg tablet Take 1 tablet (1 mg total) by mouth 2 (two) times a day Has but not currently taking 05/30/20 23 Active nicotine polacrilex (NICORETTE) 4 mg gum Take 1 each (4 mg total) by mouth as needed Has but not currently using 01/20/20 22 Active nicotine (NICODERM CQ) [address] 1 patch on the skin daily Has but isn't currently using 11/06/19 18 Active mirtazapine (REMERON) 7.5 mg tablet daily 07/17/20 24 Active ondansetron (ZOFRAN) 8 mg tabletIndicatio ns: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),Prophylax is for chemotherapy-in duced neutropenia Take 1 tablet (8 mg total) by mouth every 8 (eight) hours as needed for nausea or vomiting Use if prochlorperazine does not stop nausea 24 tablet 3 08/15/20 24 Active senna-docusate (PERICOLACE) 8.6-50 mgIndications:c onstipation Take 2 tablets by mouth daily 60 tablet 3 08/15/20 24 Active dexAMETHasone (DECADRON) 4 mg tabletIndicatio ns: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) Take 8 mg (2 tabs) by mouth once on Day 2, then 8 mg (2 tabs) twice daily on Days 3 and 4. 10 tablet 3 08/22/20 24 Active apixaban (ELIQUIS) 5 mg tablet Take 1 tablet (5 mg total) by mouth 2 (two) times a day 60 tablet 08/29/20 24 Active cefdinir (OMNICEF) 300 mg capsule TAKE 1 CAPSULE BY MOUTH EVERY 12 HOURS FOR 7 DAYS 09/15/20 Active doxycycline 100 mg tablet TAKE 1 TABLET BY MOUTH TWICE A DAY FOR 7 DAYS 09/15/20 Active hydrOXYzine (VISTARIL) 100 mg capsule TAKE 1 CAPSULE (100MG) BY MOUTH EVERY 8 HOURS IF NEEDED FOR 30 DAYS 09/11/20 Active LORazepam (ATIVAN) 0.5 mg tablet daily Active senna (SENOKOT) 8.6 mg tablet daily Active traMADoL (ULTRAM) 50 mg tablet every 12 hours Activ e food supplemt, lactose-reduced 0.05 gram- 1.5 kcal/mL liquid Take 1 Bottle by mouth daily 5688 mL 2 09/25/20 Active calcium carbonate-vitam in D3 1,250 mg (500 mg elemental)-400 unit tablet Take 1 tablet by mouth travel insurance agent before breakfast 30 tablet 3 09/25/20 24 Active morphine ER (MS CONTIN) 30 mg 12 hr tablet Take 1 tablet (30 mg total) by mouth every 12 (twelve) hours 60 tablet 09/25/20 24 Active oxyCODONE (ROXICODONE) 5 mg immediate release tabletIndicatio ns:Pain,cancer related pain Take 1-2 tablets (5-10 mg total) by mouth every 4 (four) hours as needed for pain 120 tablet 09/25/20 24 Active Active Problems Problem Noted Date Diagnosed Date Cancer related pain 08/15/2024 Prophylaxis for chemotherapy-induced neutropenia 08/01/2024 Primary cancer of left lower lobe of lung 09/18/ 2024 Cancer Staging:Clinical:Stage IVB(pM1c) - Unsigned Localized enlarged lymph nodes 05/28/2024 Hilar mass 05/28/2024 Immunizations Name Administration Dates Next Due Influenza, Quadrivalent, Hig h Dose, Preservative Free, Intrr 08/23/2024 Influenza, Quadrivalent, Rec ombinant, Egg Free, Preservative Free, Intramuscular 07/29/2022,07/26/2021 Influenza, Quadrivalent, Spl it, Intramuscular 07/17/2017,09/29/2016 Influenza, Quadrivalent, Spl it, Preservative Free, Intramuscular 09/29/2023,08/04/2020,07/11/2019,08/09,11/02/2015 Influenza, Unspecified 08/13/2020 Emmie (J&J) SARS-CoV-2 Vaccination 01/17/2021 Pneumococcal Conjugate Pcv20 07/29/2022 Pneumococcal Polysaccharide PPV23 07/11/2019 Tdap 09/29/2023,07/17/2017 Social History Tobacco Use Types Packs/Day Years Used Date Smoking Tobacco: Every Day Cigarettes Passive Smoke Exposure: Past Smokeless Tobacco: Never Tobacco Cessation:Ready to Q uit: No AUDIT-C Answer Date Recorded Q1: How often [...] on file Legal Sex Male 6:04 PM BLENDING TANK TENDER HELPER Gender Identity Not on file Sexual Orientation Not on file Last Filed Vital Signs Vital Sign Reading Time Taken Comments Blood Pressure 106/72 10/03/2024 8:17 AM BLENDING TANK TENDER HELPER Pulse 80 10/03/2024 8:17 AM BLENDING TANK TENDER HELPER Temperature 36.5 ??C (97.7 ??F) 10/03/2024 8:17 AM CS T Respiratory Rate 18 10/03/2024 8:17 AM BLENDING TANK TENDER HELPER Oxygen Saturation 98% 10/03/2024 8:17 AM BLENDING TANK TENDER HELPER Inhaled Oxygen Concentration - - Weight 91 kg (200 lb 9.9 oz) 10/03/2024 8:17 AM BLENDING TANK TENDER HELPER Height 167.6 cm (5' 6 ) 08/29/2024 12:07 PM CDT Body Mass Index 32.38 08/29/2024 12:07 PM CDT Plan of Treatment Not on file Procedures Procedure Name Priority Date/Time Associated Diagnosis Comments CT BODY OUTSIDE CONSULT Routine 10/25/2024 2:15 PM BLENDING TANK TENDER HELPER Diagnosis unknown DIFFERENTIAL AUTO Routine 10/03/2024 7:3 4 AM BLENDING TANK TENDER HELPER 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) CBC WITH AUTO DIFFERENTIAL Routine 10/03/2024 7:34 AM BLENDING TANK TENDER HELPER 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) EGFR STAT 09/25/2024 7:43 AM BLENDING TANK TENDER HELPER 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) DIFFERENTIAL AUTO STAT 09/25/2024 7:4 3 AM BLENDING TANK TENDER HELPER 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) CBC WITH AUTO DIFFERENTIAL STAT 09/25/2024 7:43 AM BLENDING TANK TENDER HELPER 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) COMPREHENSIVE METABOLIC PANEL STAT 09/25/2024 7:43 AM BLENDING TANK TENDER HELPER 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) CT BODY OUTSIDE REFERENCE Routine 09/17/2024 11:19 AM BLENDING TANK TENDER HELPER DIFFERENTIAL AUTO Routine 09/05/2024 8:0 3 AM BLENDING TANK TENDER HELPER 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) CBC WITH AUTO DIFFERENTIAL Routine 09/05/2024 8:03 AM BLENDING TANK TENDER HELPER 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) EGFR STAT 09/05/2024 7:51 AM BLENDING [employer]END[employer] HELPER 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) COMPREHENSIVE METABOLIC PANEL STAT 09/05/2024 7:51 AM [employer]ING [employer] TENDER HELPER 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) TROPONIN I HIGH-SENSITIVITY 2-HOUR Timed 08/29/2024 2:23 PM CDT URINALYSIS AND REFLEX TO MICROSCOPIC AND CULTURE STAT 08/29/2024 2:23 PM CDT TX CRITICAL CARE ILL/INJURED PATIENT INIT 30-74 MIN Routine 08/29/2024 2:[address] CHEST PE W CONTRAST ED 08/29/2024 1:50 PM CDT ECG 12-LEAD STAT 08/29/2024 1:47 PM CDT POCUS CARDIAC 08/29/2024 1:34 PM CDT EGFR STAT 08/29/2024 12:27 PM CDT DIFFERENTIAL AUTO STAT 08/29/2024 12: 27 PM CDT THYROID FUNCTION CASCADE STAT 08/29/2024 12:27 PM CDT TROPONIN I HIGH-SENSITIVITY SERIES (BASELINE, 2HR, 4HR, 6HR) STAT 08/29/2024 12:27 PM CDT SEPSIS LACTATE WITH REFLEX STAT 08/29/2024 12:27 PM CDT COMPREHENSIVE METABOLIC PANEL STAT 08/29/2024 12:27 PM CDT CBC WITH AUTO DIFFERENTIAL STAT 08/29/2024 12:27 PM CDT RESPIRATORY PATHOGEN PANEL Routine 08/29/2024 12:27 PM CDT EGFR STAT 08/29/2024 10:34 AM CDT 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) DIFFERENTIAL AUTO Routine 08/29/2024 10: 34 AM CDT 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) CBC WITH AUTO DIFFERENTIAL Routine 08/29/2024 10:34 AM CDT 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) COMPREHENSIVE METABOLIC PANEL STAT 08/29/2024 10:34 AM CDT 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) T3, FREE Routine 08/22/2024 11:10 AM CDT EGFR STAT 08/22/2024 11:10 AM CDT 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) T4, FREE Routine 08/22/2024 11:10 AM CDT 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) DIFFERENTIAL AUTO STAT 08/22/2024 11: 10 AM CDT 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) CBC WITH AUTO DIFFERENTIAL STAT 08/22/2024 11:10 AM CDT 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) COMPREHENSIVE METABOLIC PANEL STAT 08/22/2024 11:10 AM CDT 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) THYROID FUNCTION CASCADE Routine 08/22/2024 11:10 AM CDT 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) RAD ONC ARIA COURSE SUMMARY 08/19/2024 11:14 AM CDT RAD ONC ARIA SESSION SUMMARY 08/16/2024 11:46 AM CDT RAD ONC ARIA SESSION SUMMARY 08/15/2024 12:13 PM CDT EGFR STAT 08/15/2024 6:45 AM CDT Prophylaxis for chemotherapy-ashley kristine neutropenia 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) DIFFERENTIAL AUTO Routine 08/15/2024 6:4 5 AM CDT Prophylaxis for chemotherapy-ashley kristine neutropenia 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) CBC WITH AUTO DIFFERENTIAL Routine 08/15/2024 6:45 AM CDT Prophylaxis for chemotherapy-ashley kristine neutropenia 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) COMPREHENSIVE METABOLIC PANEL STAT 08/15/2024 6:45 AM CDT Prophylaxis for chemotherapy-ashley kristine neutropenia 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) TSH Routine 08/15/2024 6:45 AM CDT Prophylaxis for chemotherapy-ashley kristine neutropenia 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) RAD ONC ARIA SESSION SUMMARY 08/14/2024 9:29 AM CDT RAD ONC ARIA SESSION SUMMARY 08/13/2024 8:57 AM CDT RAD ONC ARIA SESSION SUMMARY 08/12/2024 4:02 PM CDT EGFR STAT 08/01/2024 8:02 AM CDT 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) DIFFERENTIAL AUTO Routine 08/01/2024 8:0 2 AM CDT 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) CBC WITH AUTO DIFFERENTIAL Routine 08/01/2024 8:02 AM CDT 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) COMPREHENSIVE METABOLIC PANEL STAT 08/01/2024 8:02 AM CDT 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) PET/CT FDG SKULL TO THIGH Schedule Routine, Read Routine (OP Routine) 07/31/2024 4:05 PM CDT 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) MRI BRAIN W WO CONTRAST Schedule Routine, Read Routine (OP Routine) 07/31/2024 2:11 PM CDT 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) from Last 3 Months Results * CT Body Outside Consult (10/25/2024 2:15 PM BLENDING [employer] TENDER HELPER) Anatomical Region Laterality Modality Body N/A Computed Tomogra phy 10/27/2024 7:03 PM BLENDING [employer] TENDER HELPER Impressions 10/27/2024 7:03 PM BLENDING [employer] TENDER HELPER 1. ??Marked response to therapy in the primary left hilar lesion which is decreased in size and associated with interval near total reexpansion of the left upper lobe. ??Previously seen direct invasion into the aorticopulmonary window is largely resolved. ??Subcarinal lymphadenopathy has resolved. ??There has also been resolution of a left pleural effusion. 2. ??Interval resolution of adrenal metastases consistent with response to therapy. 3. ??Similar appearing right sacral metastasis. ??Interval increase in callus about a pathologic fracture involving the sternum where there is a lytic lesion. 4. ??Interval decrease in patchy peripheral groundglass in the right lung which is likely improving organizing pneumonia. The findings, conclusions and recommendations within this report do not replace the initial findings, conclusions ??and recommendations made at the facility where the study was performed based upon the imaging and clinical condition at that time. ??Comparison with the prior report and clinical history is necessary. ??The provided images may or may not represent the [place] source data set and thus may contain changes that may lower the accuracy of this second-opinion interpretation. Electronically signed by: Wally Garg M.D. Narrative 10/27/2024 7:03 PM BLENDING [employer] TENDER HELPER EXAMINATION: RADIOLOGY CONSULTATION ON OUTSIDE IMAGING STUDY STUDY INITIALLY PERFORMED: 10/23/[address] [facility]. TYPE OF STUDY: Multiple CT images of the chest, abdomen, and pelvis with intravenous contrast are provided at the time of this interpretation. CONTRAST ROUTE: Intravenous The protocol was adequate to address the clinical question. The outside final report was not available at the time of this second opinion interpretation. TYPE OF CONSULTATION: Consult on outside imaging study with images submitted through Outside Image Sharing Service DATE OF CONSULTATION: 10/27/2024 5:29 PM HISTORY: Lung cancer COMPARISON: 09/12/2024 FINDINGS: There is been marked interval decrease in size in the left hilar mass which is difficult to ??measure, particularly on the prior, but is now approximately 2.9 x 1.4 cm versus 5.4 x 4.4 cm on the prior. ??There is been interval reexpansion of the left upper lobe. Mass effect on the left main pulmonary artery is decreased. ??There is still severe narrowing of the left upper lobe pulmonary arterial tree. ??Extension into the aorticopulmonary window and left paratracheal region has resolved. ??Subcarinal lymphadenopathy has resolved. No supraclavicular lymphadenopathy. ??No axillary lymphadenopathy. Heart size is normal. ??There are coronary calcifications. ??No pericardial effusion. There is still some residual subtotal atelectasis in the left upper lobe. ??There is also some platelike atelectasis in the left lower lobe. Patchy groundglass the right lung, particularly the right upper lobe, has decreased since the prior. ??No new suspicious pulmonary nodules or masses. ??A background of emphysema is again seen. Small left effusion has also resolved. No concerning hepatic lesions or biliary ductal dilatation. ??Portal and superior mesenteric veins are normal. ??Previously seen adrenal nodularity has resolved. Spleen is normal. ??Pancreas is normal. No renal lesions or hydronephrosis. No abdominal or pelvic lymphadenopathy. ??There is extensive atherosclerotic calcification of the aortoiliac system. No free intraperitoneal fluid or gas. The bowel is normal in caliber without evidence of any focal wall thickening or obstruction. Right sacral soft tissue mass is similar. ??This can be seen scanner position -447.5. ??There are multiple healed left rib fractures. There is been interval increase in callus about a pathologic fracture associated with a sternal lesion. ??There is increased height loss in a compression fracture at L2. Procedure Note Wally Garg MD - 10/27/2024 EXAMINATION: RADIOLOGY CONSULTATION ON OUTSIDE IMAGING STUDY STUDY INITIALLY PERFORMED: 10/23/[address] [facility]. TYPE OF STUDY: Multiple CT images of the chest, abdomen, and pelvis with intravenous contrast are provided at the time of this interpretation. CONTRAST ROUTE: Intravenous The protocol was adequate to address the clinical question. The outside final report was not available at the time of this second opinion interpretation. TYPE OF CONSULTATION: Consult on outside imaging study with images submitted through Outside Image Sharing Service DATE OF CONSULTATION: 10/27/2024 5:29 PM HISTORY: Lung cancer COMPARISON: 09/12/2024 FINDINGS: There is been marked interval decrease in size in the left hilar mass which is difficult to measure, particularly on the prior, but is now approximately 2.9 x 1.4 cm versus 5.4 x 4.4 cm on the prior. There is been interval reexpansion of the left upper lobe. Mass effect on the left main pulmonary artery is decreased. There is still severe narrowing of the left upper lobe pulmonary arterial tree. Extension into the aorticopulmonary window and left paratracheal region has resolved. Subcarinal lymphadenopathy has resolved. No supraclavicular lymphadenopathy. No axillary lymphadenopathy. Heart size is normal. There are coronary calcifications. No pericardial effusion. There is still some residual subtotal atelectasis in the left upper lobe. There is also some platelike atelectasis in the left lower lobe. Patchy groundglass the right lung, particularly the right upper lobe, has decreased since the prior. No new suspicious pulmonary nodules or masses. A background of emphysema is again seen. Small left effusion has also resolved. No concerning hepatic lesions or biliary ductal dilatation. Portal and superior mesenteric veins are normal. Previously seen adrenal nodularity has resolved. Spleen is normal. Pancreas is normal. No renal lesions or hydronephrosis. No abdominal or pelvic lymphadenopathy. There is extensive atherosclerotic calcification of the aortoiliac system. No free intraperitoneal fluid or gas. The bowel is normal in caliber without evidence of any focal wall thickening or obstruction. Right sacral soft tissue mass is similar. This can be seen scanner position -447.5. There are multiple healed left rib fractures. There is been interval increase in callus about a pathologic fracture associated with a sternal lesion. There is increased height loss in a compression fracture at L2. IMPRESSION: 1. Marked response to therapy in the primary left hilar lesion which is decreased in size and associated with interval near total reexpansion of the left upper lobe. Previously seen direct invasion into the aorticopulmonary window is largely resolved. Subcarinal lymphadenopathy has resolved. There has also been resolution of a left pleural effusion. 2. Interval resolution of adrenal metastases consistent with response to therapy. 3. Similar appearing right sacral metastasis. Interval increase in callus about a pathologic fracture involving the sternum where there is a lytic lesion. 4. Interval decrease in patchy peripheral groundglass in the right lung which is likely improving organizing pneumonia. The findings, conclusions and recommendations within this report do not replace the initial findings, conclusions and recommendations made at the facility where the study was performed based upon the imaging and clinical condition at that time. Comparison with the prior report and clinical history is necessary. The provided images may or may not represent the [place] source data set and thus may contain changes that may lower the accuracy of this second-opinion interpretation. Electronically signed by: Wally Garg M.D. us Stan Meza MD IMG CT PROCEDURES Final R esult * Differential, auto (10/03/2024 7:34 AM BLENDING TANK TENDER HELPER) Neutrophil abs 2.5 1.5 - 6.5 K/cumm Comment:Testing performed by : [facility], [address] [place] [phone] Lymphocyte abs 0.8 0.8 - 3.3 K/cumm [facility] Comment:Testing performed by : [facility], [address] [place] [phone] Monocyte abs 0.4 0.2 - 0.8 K/cumm [facility] Comment:Testing performed by : [facility], [address] [place], [place] [phone] Eosinophil abs 0.1 0.0 - 0.5 K/cumm [facility] Comment:Testing performed by : [facility], [address] [place] [phone] Basophil abs 0.0 0.0 - 0.1 K/cumm [facility] Comment:Testing performed by : [facility], [address] [place], [place] [phone] Neutrophil pct 65.4 % [facility] Comment: Interpretive Data Percent cell count reference ranges are not reported, since discordance with absolute values may lead to misinterpretation of CBC data. Current Interpretive Data was last revised on 2018. Testing performed by: [facility], [address] [place] [phone] Lymphocyte pct 21.8 % CHEMA RESEND[facility] Comment: Interpretive Data Percent cell count reference ranges are not reported, since discordance with absolute values may lead to misinterpretation of CBC data. Current Interpretive Data was last revised on 2018. Testing performed by: [facility], [address] [place] [phone] Monocyte pct 10.8 % CHEMA RESEND[facility] Comment: Interpretive Data Percent cell count reference ranges are not reported, since discordance with absolute values may lead to misinterpretation of CBC data. Current Interpretive Data was last revised on 2018. Testing performed by: [facility], [address] [place] [phone] Eosinophil pct 1.8 % CHEMA RESEND[facility] Comment: Interpretive Data Percent cell count reference ranges are not reported, since discordance with absolute values may lead to misinterpretation of CBC data. Current Interpretive Data was last revised on 2018. Testing performed by: [facility], [address] [place] [phone] Basophil pct 0.2 % CHEMA RESENDIZ Comment: Interpretive Data Percent cell count reference ranges are not reported, since discordance with absolute values may lead to misinterpretation of CBC data. Current Interpretive Data was last revised on 2018. Testing performed by: [facility], [address] [place] [phone] Blood 10/03/2024 7:34 AM BLENDING TANK TENDER HELPER 10/03/2024 7:37 AM BLENDING T[employer] TENDER HELPER us Stan Meza MD LAB BLOOD ORDERABLES Yolette l Result CHEMA RESENDIZ [facility] Department [place] [address] * (ABNORMAL) CBC with auto differential (10/03/2024 7:34 AM BLENDING TANK TENDER HELPER) WBC 3.8 3.8 - 9.9 K/cumm Comment:Testing performed by : [facility], [address] [place] [address] Hgb 9.0(L) 13.0 - 17.5 g/dL [facility] Comment:Testing performed by : [facility], [address] [place], [place] [phone] Hct 27.9(L) 38.9 - 50.3 % [facility] Comment:Testing performed by : [facility], [address] [place], [place] [phone] Plt 252 150 - 400 K/cumm [facility] Comment:Testing performed by : [facility], [address] [place], [place] [phone] MPV 6.8 6.8 - 10.4 fL [facility]ER [facility] Comment:Testing performed by : [facility], [address] [place], [place] [phone] RBC 3.40(L) 4.30 - 5.80 M/cumm [facility]ER [facility] Comment:Testing performed by : [facility], [address] [place] [address] MCV 82.0 81.3 - 96.4 fL [facility] Comment:Testing performed by : [facility], [address] [place], [place] [phone] MCH 26.6(L) 27.1 - 33.3 pg [facility]ER [facility] Comment:Testing performed by : [facility], [address] [place] [address] MCHC 32.4 32.3 - 35.7 g/dL C[facility]ER [facility] Comment:Testing performed by : [facility], [address] [place] [address] RDW CV 17.7(H) 11.1 - 14.9 % [facility]ER [facility] Comment:Testing performed by : [facility], [address] [place] [address] NRBC abs 0.00 0.00 - 0.01 K/cumm [facility] Comment:Testing performed by : [facility], [address] [place] [phone] Blood 10/03/2024 7:34 AM BLENDING TANK TENDER HELPER 10/03/2024 7:37 AM BLENDING TANK TENDER HELPER Stan Meza MD LAB BLOOD ORDERABLES Yolette l Result CHEMA [facility] Department [place] [address] * eGFR (09/25/2024 7:43 AM BLENDING TANK TENDER HELPER) eGFR >90 >=60 mL/min/1. 73 m2 Comment: [...] last reviewed 2021. Blood 09/25/2024 7:43 AM BLENDING TANK TENDER HELPER 09/25/2024 7:51 AM BLENDING TANK TENDER HELPER Stan Meza MD LAB BLOOD ORDERABLES Yolette l Result CHEMA [facility] Department [place] [address] * (ABNORMAL) Differential, auto (09/25/2024 7:43 AM BLENDING TANK TENDER HELPER) Neutrophil abs 4.1 1.5 - 6.5 K/cumm Comment:Testing performed by : [facility], [address] [place] [phone] Lymphocyte abs 0.8 0.8 - 3.3 K/cumm [facility]ER [facility] Comment:Testing performed by : [facility], [address] [place] [phone] Monocyte abs 0.9(H) 0.2 - 0.8 K/cumm CERNER [facility] Comment:Testing performed by : [facility], [address] [place] [phone] Eosinophil abs 0.1 0.0 - 0.5 K/cumm C[facility]ER [facility] Comment:Testing performed by : [facility], [address] [place] [phone] Basophil abs 0.1 0.0 - 0.1 K/cumm [facility] Comment:Testing performed by : [facility], [address] [place] [phone] Neutrophil pct 69.0 % [facility] Comment: Interpretive Data Percent cell count reference ranges are not reported, since discordance with absolute values may lead to misinterpretation of CBC data. Current Interpretive Data was last revised on 2018. Testing performed by: [facility], [address] [place] [phone] Lymphocyte pct 13.4 % [facility] Comment: Interpretive Data Percent cell count reference ranges are not reported, since discordance with absolute values may lead to misinterpretation of CBC data. Current Interpretive Data was last revised on 2018. Testing performed by: [facility], [address] [place] [phone] Monocyte pct 15.3 % [facility] Comment: Interpretive Data Percent cell count reference ranges are not reported, since discordance with absolute values may lead to misinterpretation of CBC data. Current Interpretive Data was last revised on 2018. Testing performed by: [facility], [address] [place] [phone] Eosinophil pct 1.3 % CHEMA [facility]AL[facility] Comment: Interpretive Data Percent cell count reference ranges are not reported, since discordance with absolute values may lead to misinterpretation of CBC data. Current Interpretive Data was last revised on 2018. Testing performed by: [facility], [address] [place] [address] Basophil pct 1.0 % [facility] Comment: Interpretive Data Percent cell count reference ranges are not reported, since discordance with absolute values may lead to misinterpretation of CBC data. Current Interpretive Data was last revised on 2018. Testing performed by: [facility], [address] [place] [address] Blood 09/25/2024 7:43 AM BLENDING TANK TENDER HELPER 09/25/2024 7:48 AM BLENDING TANK TENDER HELPER us Stan Meza MD LAB BLOOD ORDERABLES Yolette banda Result CHEMA [facility] Department [place] [address] * (ABNORMAL) CBC with auto differential (09/25/2024 7:43 AM BLENDING TANK TENDER HELPER) WBC 5.9 3.8 - 9.9 K/cumm Comment:Testing performed by : [facility], [address] [place] [address] Hgb 9.7(L) 13.0 - 17.5 g/dL [facility] Comment:Testing performed by : [facility], [address] [place] [address] Hct 30.5(L) 38.9 - 50.3 % CHEMA [facility] Comment:Testing performed by : [facility], [address] [place] [address] Plt 350 150 - 400 K/cumm [facility]ER [facility] Comment:Testing performed by : [facility], [address] [place] [address] MPV 6.5(L) 6.8 - 10.4 fL CERNER [facility] Comment:Testing performed by : [facility], [address] [place] [address] RBC 3.72(L) 4.30 - 5.80 M/cumm [facility] Comment:Testing performed by : [facility], [address] [place] [address] MCV 82.1 81.3 - 96.4 fL [facility] Comment:Testing performed by : [facility], [address] [place] [address] MCH 26.1(L) 27.1 - 33.3 pg CERNER [facility] Comment:Testing performed by : [facility], [address] [place] [address] MCHC 31.8(L) 32.3 - 35.7 g/dL CERNER [facility] Comment:Testing performed by : [facility], [address] [place] [address] RDW CV 17.1(H) 11.1 - 14.9 % [facility] Comment:Testing performed by : [facility], [address] [place] [address] NRBC abs 0.00 0.00 - 0.01 K/cumm [facility] Comment:Testing performed by : [facility], [address] [place] [address] Blood 09/25/2024 7:43 AM BLENDING TANK TENDER HELPER 09/25/2024 7:48 AM BLENDING TANK TENDER HELPER us Stan Meza MD LAB BLOOD ORDERABLES Yolette banda Result [facility] Department [place] [address] * (ABNORMAL) Comprehensive metabolic panel (09/25/2024 7:43 AM BLENDING TANK TENDER HELPER) Sodium 135 135 - 145 mmol/L Potassium, pl 4.2 3.3 - 4.9 mmol/L [facility] Chloride 98 97 - 110 mmol/L [facility] CO2 30 22 - 32 mmol/L [facility] Anion gap 7 2 - 15 mmol/L [facility] BUN 5(L) 6 - 25 mg/dL [facility] Creatinine 0.73(L) 0.80 - 1.30 mg/dL [facility] Glucose 99 70 - 199 mg/dL [facility] Comment: Interpretive Data Fasting glucose >/= [...] classification and Diagnosis of Diabetes Diabetes Care 2021; 46: S19-S40. Current interpretive data was last revised 2022. Calcium 9.3 8.5 - 10.3 mg/dL [facility] Bilirubin, total 0.2 0.1 - 1.2 mg/dL [facility] Protein, pl 6.6 6.5 - 8.5 g/dL [facility] Albumin 3.3(L) 3.5 - 5.0 g/dL [facility] Alk phos 172(H) 40 - 130 Units/L [facility] ALT 18 7 - 55 Units/L [facility] AST 17 10 - 50 Units/L [facility] Blood 09/25/2024 7:43 AM BLENDING T[employer] TENDER HELPER 09/25/2024 7:51 AM BLENDING TANK TENDER HELPER us Stan Meza MD LAB BLOOD ORDERABLES Yolette banda Result [facility] Department [place] [address] * CT Body Outside Reference (09/17/2024 11:19 AM BLENDING TANK TENDER HELPER) Impressions [facility] - 09/17/2024 11:19 AM BLENDING TANK TENDER HELPER These images are for Reference purposes only and have not been reviewed by [facility]. ??There will be no report generated by a [facility] Radiologist. Narrative [facility]_P[facility] - 09/17/2024 11:19 AM BLENDING TANK TENDER HELPER EXAMINATION: ??Images For Reference Purposes Only us Stan Meza MD IMG CT PROCEDURES Final R esult [facility] * (ABNORMAL) Differential, auto (09/05/2024 8:03 AM BLENDING TANK TENDER HELPER) Neutrophil abs 1.6 1.5 - 6.5 K/cumm Comment:Testing performed by : [facility], [address] [place] [address] Lymphocyte abs 0.4(L) 0.8 - 3.3 K/cumm [facility] Comment:Testing performed by : [facility], [address] [place], [place] [phone] Monocyte abs 0.4 0.2 - 0.8 K/cumm [facility] Comment:Testing performed by : [facility], [address] [place] [address] Eosinophil abs 0.0 0.0 - 0.5 K/cumm [facility] Comment:Testing performed by : [facility], [address] [place] [phone] Basophil abs 0.0 0.0 - 0.1 K/cumm [facility] Comment:Testing performed by : [facility], [address] [place] [address] Neutrophil pct 65.0 % [facility] Comment: Interpretive Data Percent cell count reference ranges are not reported, since discordance with absolute values may lead to misinterpretation of CBC data. Current Interpretive Data was last revised on 2018. Testing performed by: [facility], [address] [place] [phone] Lymphocyte pct 16.1 % [facility] Comment: Interpretive Data Percent cell count reference ranges are not reported, since discordance with absolute values may lead to misinterpretation of CBC data. Current Interpretive Data was last revised on 2018. Testing performed by: [facility], [address] [place] [phone] Monocyte pct 17.4 % CHEMA RESENDIZ Comment: Interpretive Data Percent cell count reference ranges are not reported, since discordance with absolute values may lead to misinterpretation of CBC data. Current Interpretive Data was last revised on 2018. Testing performed by: [facility], [address] [place] [phone] Eosinophil pct 0.6 % CHEMA [facility]END[facility] Comment: Interpretive Data Percent cell count reference ranges are not reported, since discordance with absolute values may lead to misinterpretation of CBC data. Current Interpretive Data was last revised on 2018. Testing performed by: [facility], [address] [place] [phone] Basophil pct 0.9 % [facility] Comment: Interpretive Data Percent cell count reference ranges are not reported, since discordance with absolute values may lead to misinterpretation of CBC data. Current Interpretive Data was last revised on 2018. Testing performed by: [facility], [address] [place] [phone] Blood 09/05/2024 8:03 AM [employer]ENDING T[employer] TENDER HELPER 09/05/2024 8:04 AM BLENDING T[employer] TENDER HELPER us Stan Meza MD LAB BLOOD ORDERABLES Yolette l Result CHEMA RESENDIZ [facility] Department [place] [address] * (ABNORMAL) CBC with auto differential (09/05/2024 8:03 AM BLENDING T[employer] TENDER HELPER) WBC 2.5(L) 3.8 - 9.9 K/cumm Comment:Testing performed by : [facility], [address] [place] [address] Hgb 10.8(L) 13.0 - 17.5 g/dL CERNER [facility] Comment:Testing performed by : [facility], [address] [place] [address] Hct 33.7(L) 38.9 - 50.3 % CERNER [facility] Comment:Testing performed by : [facility], [address] [place], [place] [phone] Plt 103(L) 150 - 400 K/cumm C[facility]ER [facility] Comment:Testing performed by : [facility], [address] [place] [address] MPV 7.1 6.8 - 10.4 fL CERNER [facility] Comment:Testing performed by : [facility], [address] [place], [place] [phone] RBC 4.04(L) 4.30 - 5.80 M/cumm CERNER [facility]J Comment:Testing performed by : [facility], [address] [place] [address] MCV 83.5 81.3 - 96.4 fL CERNER [facility] Comment:Testing performed by : [facility], [address] [place] [address] MCH 26.7(L) 27.1 - 33.3 pg CERNER [facility] Comment:Testing performed by : [facility], [address] [place] [address] MCHC 32.0(L) 32.3 - 35.7 g/dL CERNER [facility] Comment:Testing performed by : [facility], [address] [place] [address] RDW CV 15.3(H) 11.1 - 14.9 % CERNER [facility] Comment:Testing performed by : [facility], [address] [place] [address] NRBC abs 0.00 0.00 - 0.01 K/cumm CERNER [facility] Comment:Testing performed by : [facility], [address] [place] [address] Blood 09/05/2024 8:03 AM BLENDING T[employer] TENDER HELPER 09/05/2024 8:04 AM BLENDING TANK TENDER HELPER us Stan Meza MD LAB BLOOD ORDERABLES Yolette l Result Performing Organization Address [facility] Co de Phone Number CHEMA MORALES [facility] Department [place] [address] * eGFR (09/05/2024 7:51 AM BLENDING T[employer] TENDER HELPER) eGFR >90 >=60 mL/min/1. 73 m2 Comment: [...] last reviewed 2021. Blood 09/05/2024 7:51 AM BLENDING TANK TENDER HELPER 09/05/2024 8:15 AM BLENDING TANK TENDER HELPER Stan Meza MD LAB BLOOD ORDERABLES Yolette l Result Performing Organization Address City/[facility] Co de Phone Number [facility] Department [place] [address] * (ABNORMAL) Comprehensive metabolic panel (09/05/2024 7:51 AM BLENDING TANK TENDER HELPER) Sodium 135 135 - 145 mmol/L Potassium, pl 3.8 3.3 - 4.9 mmol/L [facility] Chloride 98 97 - 110 mmol/L [facility] CO2 29 22 - 32 mmol/L [facility] Anion gap 8 2 - 15 mmol/L [facility] BUN 5(L) 6 - 25 mg/dL [facility] Creatinine 0.72(L) 0.80 - 1.30 mg/dL [facility] Glucose 99 70 - 199 mg/dL [facility] Comment: Interpretive Data Fasting glucose >/= [...] 2022. Calcium 8.9 8.5 - 10.3 mg/dL [facility] Bilirubin, total 0.3 0.1 - 1.2 mg/dL [facility] Protein, pl 6.9 6.5 - 8.5 g/dL [facility] Albumin 3.4(L) 3.5 - 5.0 g/dL [facility] Alk phos 160(H) 40 - 130 Units/L [facility] ALT 24 7 - 55 Units/L [facility] AST 21 10 - 50 Units/L [facility] Blood 09/05/2024 7:51 AM BLENDING TANK TENDER HELPER 09/05/2024 8:15 AM BLENDING TANK TENDER HELPER us Stan Meza MD LAB BLOOD ORDERABLES Yolette l Result CHEMA [facility] Department [place] [address] * (ABNORMAL) Troponin I high-sensitivity 2-hour (08/29/2024 2:23 PM CDT) Trop I hs 37(H) <=35 ng/L Comment: Interpretive Data For further hscTnI resources including the diagnostic algorithm and an aid in interpretation, copy and paste this link: https://bjhlab.testcatalog.org/show/[email or web address] Current Interpretive Data last revised 2020. Trop I hs delta 4 ng/L [facility] Trop I hs interp Insignificant [facility] Blood 08/29/2024 2:23 PM CDT 08/29/2024 2:50 PM CDT Manjit Espinoza MD LAB BLOOD ORDERABLES Final Result Performing Organization Address City/State/[facility] Co de Phone Number [facility] Department [place] [address] * Urinalysis reflex to microscopic and culture Urine (08/29/2024 2:23 PM CDT) Color, ur Straw Yellow Clarity, ur Clear Clear [facility] Specific gravity, ur 1.009 1.003 - 1.030 [facility] pH, urine 6.0 [facility] Comment: Interpretive Data ? Urine pH is affected by diet, medications, systemic acid-base disturbances, and renal tubular function. ??pH may affect urinary stone formation. ??For example, urine pH below 6.0 may help reduce the tendency for calcium phosphate stones and pH greater than 6.0 may reduce the tendency for uric acid stone formation. Source: [facility] Current Interpretive Data was last revised on 2017 Protein, ur ql Negative Negative [facility] Glucose, ur ql Negative Negative [facility] Ketones, ur Negative Negative [facility] Bilirubin, ur Negative Negative [facility] Blood, ur Negative Negative [facility] Urobilinogen, ur <2.0 <2.0 mg/dL [facility] Nitrite, ur Negative Negative [facility] Leukocyte esterase, ur Negative Negative [facility] UA reflex comment Reflex conditions for microscopic UA and culture not met. [facility] Urine 08/29/2024 2:23 PM CDT 08/29/2024 2:43 PM CDT us Manjit Espinoza MD LAB MICROBIOLOGY - GENERAL ORDERABLES Final Result [facility] Department [place] [address] * [place] CRITICAL CARE ILL/INJURED PATIENT INIT 30-74 MIN (08/29/2024 2:00 PM CDT) Narrative Olivia Manley MD - 08/29/2024 2:00 PM CDT Olivia Manley MD ? 08/29/2024 ??4:02 PM Critical Care Performed by: Olivia Manley MD Authorized by: Maycol Myers MD ?? Critical care provider statement: As reflected in the history, physical exam, orders, notes, and/or MDM, I was personally present while the patient was critically ill and provided critical care services for 31 minutes, excluding time involved in separately billable procedures. ??Critical care was necessary to treat or prevent imminent or life-threatening deterioration of the following condition(s): ?? atrial fibrillation ??Critical care was time spent by me providing the following: ? continuous telemetry, continuous pulse oximetry, interpretation of bedside monitors, imaging, and arterial/venous lab draws and serial bedside patient exams ?? initiation of rate controlling agent ?? I provided emergent necessary critical care medicine services to this patient. I ordered and reviewed test results and/or imaging studies. I spent time discussing the management of this critically ill patient with consultants and the medical staff. I spent time discussing the management and therapeutic options for this critically ill patient with the patient themselves or with the appropriate designated surrogate decision-maker. I spent time documenting in the medical record. us Maycol Myers MD IN CLINIC/BEDSIDE ORDERABLES Final Result * CT Chest PE (CTA) W Contrast (08/29/2024 1:50 PM CDT) Anatomical Region Laterality Modality Body N/A Computed Tomogra phy 08/29/2024 3:39 PM CDT Impressions 08/29/2024 10:53 PM CDT 1. No pulmonary embolism. 2. Stable appearance of left hilar mass with vascular and bronchial encasement, mediastinal and left hilar lymphadenopathy, and left upper lobe collapse with post obstructive changes. 3. Lytic lesions of the left 9th rib and sternum with pathologic fracture of the sternum, compatible with osseous metastatic disease. Dictated by: Robert Gomez M.D. The radiology attending physician has personally reviewed this study, and had reviewed and/or edited this written report and agrees with it. Electronically signed by: Sav Ying M.D. Narrative 08/29/2024 10:53 PM CDT EXAMINATION: CT CHEST PE (CTA) W CONTRAST HISTORY: 63-year-old male with non-small cell carcinoma of the lung presenting with new onset atrial fibrillation and shortness of breath TECHNIQUE: Computed tomographic images were acquired using a chest angiographic protocol optimized for pulmonary embolism. ??Contrast enhanced transaxial images were obtained following the intravenous administration of 69 ml of nonionic contrast. ??Multiplanar reformatted images and three-dimensional images were obtained on the 3-D workstation and sent to the PACS archival system. ?? COMPARISON: CT 04/17/2024, PET/CT 07/31/2024 FINDINGS: No pulmonary embolism. No aortic dissection. The heart is normal size. No pericardial effusion. No pleural effusion or pneumothorax. Small amount of debris and mucus within the right mainstem bronchus. Masslike consolidation of the left upper lobe with adjacent hilar and mediastinal lymph nodes and soft tissue thickening extending to the mediastinum which appears unchanged. There is soft tissue thickening encases the left pulmonary arteries causing narrowing of the left pulmonary artery and its branches. The left upper lobe is collapsed with postobstructive changes and volume loss. There is compensatory elevation of the left hemidiaphragm. Right upper lobe patchy areas of groundglass may represent infectious or organizing pneumonia. Mild elevation of the left hemidiaphragm. Small hepatic cyst in the left hemiliver. The imaged portion of the upper abdomen is otherwise unremarkable. Lytic lesion of the posterior left ninth rib as well as of the sternum (with an associated pathologic fracture of the sternum) were previously FDG avid on recent PET/CT and likely represent osseous metastatic disease. Procedure Note Sav Ying MD PhD - 08/29/2024 EXAMINATION: CT CHEST PE (CTA) W CONTRAST HISTORY: 63-year-old male with non-small cell carcinoma of the lung presenting with new onset atrial fibrillation and shortness of breath TECHNIQUE: Computed tomographic images were acquired using a chest angiographic protocol optimized for pulmonary embolism. Contrast enhanced transaxial images were obtained following the intravenous administration of 69 ml of nonionic contrast. Multiplanar reformatted images and three-dimensional images were obtained on the 3-D workstation and sent to the PACS archival system. COMPARISON: CT 04/17/2024, PET/CT 07/31/2024 FINDINGS: No pulmonary embolism. No aortic dissection. The heart is normal size. No pericardial effusion. No pleural effusion or pneumothorax. Small amount of debris and mucus within the right mainstem bronchus. Masslike consolidation of the left upper lobe with adjacent hilar and mediastinal lymph nodes and soft tissue thickening extending to the mediastinum which appears unchanged. There is soft tissue thickening encases the left pulmonary arteries causing narrowing of the left pulmonary artery and its branches. The left upper lobe is collapsed with postobstructive changes and volume loss. There is compensatory elevation of the left hemidiaphragm. Right upper lobe patchy areas of groundglass may represent infectious or organizing pneumonia. Mild elevation of the left hemidiaphragm. Small hepatic cyst in the left hemiliver. The imaged portion of the upper abdomen is otherwise unremarkable. Lytic lesion of the posterior left ninth rib as well as of the sternum (with an associated pathologic fracture of the sternum) were previously FDG avid on recent PET/CT and likely represent osseous metastatic disease. IMPRESSION: 1. No pulmonary embolism. 2. Stable appearance of left hilar mass with vascular and bronchial encasement, mediastinal and left hilar lymphadenopathy, and left upper lobe collapse with post obstructive changes. 3. Lytic lesions of the left 9th rib and sternum with pathologic fracture of the sternum, compatible with osseous metastatic disease. Dictated by: Robert Gomez M.D. The radiology attending physician has personally reviewed this study, and had reviewed and/or edited this written report and agrees with it. Electronically signed by: Sav Ying M.D. us Manjit Espinoza MD IMG CT PROCEDURES Final Re sult * (ABNORMAL) ECG 12-LEAD (08/29/2024 1:47 PM CDT) Narrative [facility] - 08/29/2024 1:47 PM CDT Olivia Manley MD ? 08/29/2024 ??1:47 PM ECG 12 lead Date/Time: 08/29/2024 1:47 PM Performed by: Olivia Manley MD Authorized by: Manjit Espinoza MD ?? Rate: ??ECG rate: ??128 ??ECG rate assessment: tachycardic ?? Rhythm: ??Rhythm: atrial fibrillation ?? Ectopy: ??Ectopy: none ?? QRS: ??QRS axis: ??Normal ??QRS intervals: ??Normal Conduction: ??Conduction: normal ?? ST segments: ??ST segments: ??Normal T waves: ??T waves: normal ?? Previous ECG: ??Previous ECG: ??Unavailable Interpretation: ??Interpretation: abnormal ?? Recommended Follow-up: ??Recommended follow up: further workup in the ED ?? Comments: ?? ECG obtained for tachycardia Procedure Note Olivia Manley MD - 08/29/2024 1:47 PM CDT Procedure ECG 12 lead Date/Time: 08/29/2024 1:47 PM Performed by: Olivia Manley MD Authorized by: Manjit Espinoza MD Rate: ECG rate: 128 ECG rate assessment: tachycardic Rhythm: Rhythm: atrial fibrillation Ectopy: Ectopy: none QRS: QRS axis: Normal QRS intervals: Normal Conduction: Conduction: normal ST segments: ST segments: Normal T waves: T waves: normal Previous ECG: Previous ECG: Unavailable Interpretation: Interpretation: abnormal Recommended Follow-up: Recommended follow up: further workup in the ED Comments: ECG obtained for tachycardia Olivia Manley MD 08/29/24 [id number] us Manjit Espinoza MD ECG ORDERABLES Final Resu lt [facility]USE [facility] * POCUS Cardiac (08/29/2024 1:34 PM CDT) Anatomical Region Laterality Modality Other 08/29/2024 1:27 PM CDT Narrative 08/31/2024 8:18 PM CDT Performed by: Terence Collins Cardiac: ?Exam type: ??Diagnostic ?Exam Information: ?Indication(s) for Exam: ?Hypotension ?Exam Occurence: ?Initial ?Findings ?? : ?Pericardial effusion: ??Absent ?Left ventricle: ??Normal EF ?Right ventricle: ??Indeterminate ?IVC: ??Not visualized ?Interpretation: ?Normal LVEF ?Other ??: ??LAE and other signs of diastolic dysfunction Electronically signed by Eli Walker on Saturday, August 31, 2024 at 8:18 PM I have reviewed the images & the resident's interpretation. I agree with the findings. Procedure Note Eli Walker MD - 08/31/2024 Performed by: Terence Collins Cardiac: Exam type: Diagnostic Exam Information: Indication(s) for Exam: Hypotension Exam Occurence: Initial Findings : Pericardial effusion: Absent Left ventricle: Normal EF Right ventricle: Indeterminate IVC: Not visualized Interpretation: Normal LVEF Other : LAE and other signs of diastolic dysfunction Electronically signed by Eli Walker on Saturday, August 31, 2024 at8:18 PM I have reviewed the images & the resident's interpretation. I agree withthe findings. us Eli Walker MD POCUS ORDERABLES Final Resu lt * Troponin I high-sensitivity series (baseline, 2hr, 4hr, 6hr) (08/29/2024 12:27 PM CDT) Pathologist [facility] [place] Trop I hs 33 <=35 ng/L Comment: Interpretive Data For further hscTnI resources including the diagnostic algorithm and an aid in interpretation, copy and paste this link: https://bjhlab.testcatalog.org/show/[email or web address] Current Interpretive Data last revised 2020. Blood 08/29/2024 12:2 7 PM CDT 08/29/2024 12:43 PM CDT us Manjit Espinoza MD LAB BLOOD ORDERABLES Final Result Performing Organization Address [facility]/ZIP Co de Phone Number [facility] Department [place] [address] * Sepsis Lactate w/ Reflex (08/29/2024 12:27 PM CDT) [facility] Sepsis Lactate 1.9 0.7 - 2.0 mmol/L Blood 08/29/2024 12:2 7 PM CDT 08/29/2024 12:39 PM CDT Manjit Espinoza MD LAB BLOOD ORDERABLES Final Result Performing Organization Address City/[facility] Co de Phone Number [facility] [place] [address] * eGFR (08/29/2024 12:27 PM CDT) [facility] eGFR 81 >=60 mL/min/1. 73 m2 Comment: Interpretive Data [...] interpretive data was last reviewed 2021. Blood 08/29/2024 12:2 7 PM CDT 08/29/2024 12:43 PM CDT us Manjit Espinoza MD LAB BLOOD ORDERABLES Final Result [facility] Department [place] [address] * (ABNORMAL) Differential, auto (08/29/2024 12:27 PM CDT) Neutrophil abs 3.7 1.5 - 6.5 K/cumm Imm gran abs 0.1 0.0 - 0.1 K/cumm [facility] Lymphocyte abs 0.4(L) 0.8 - 3.3 K/cumm [facility] Monocyte abs 0.2 0.2 - 0.8 K/cumm [facility] Eosinophil abs 0.1 0.0 - 0.5 K/cumm [facility] Basophil abs 0.0 0.0 - 0.1 K/cumm [facility] Neutrophil pct 84.2 % [facility] Comment: Interpretive Data Percent cell count reference ranges are not reported, since discordance with absolute values may lead to misinterpretation of CBC data. Current Interpretive Data was last revised on 2018. Imm gran pct 1.1 % [facility] Comment: Interpretive Data Percent cell count reference ranges are not reported, since discordance with absolute values may lead to misinterpretation of CBC data. Current Interpretive Data was last revised on 2018. Lymphocyte pct 9.0 % [facility] Comment: Interpretive Data Percent cell count reference ranges are not reported, since discordance with absolute values may lead to misinterpretation of CBC data. Current Interpretive Data was last revised on 2018. Monocyte pct 4.4 % [facility] Comment: Interpretive Data Percent cell count reference ranges are not reported, since discordance with absolute values may lead to misinterpretation of CBC data. Current Interpretive Data was last revised on 2018. Eosinophil pct 1.1 % [facility] Comment: Interpretive Data Percent cell count reference ranges are not reported, since discordance with absolute values may lead to misinterpretation of CBC data. Current Interpretive Data was last revised on 2018. Basophil pct 0.2 % [facility] Comment: Interpretive Data Percent cell count reference ranges are not reported, since discordance with absolute values may lead to misinterpretation of CBC data. Current Interpretive Data was last revised on 2018. Blood 08/29/2024 12:2 7 PM CDT 08/29/2024 12:43 PM CDT us Manjit Espinoza MD LAB BLOOD ORDERABLES Final Result [facility] Department [place] [address] * Thyroid Function [place] (08/29/2024 12:27 PM CDT) TSH 1.00 0.30 - 4.20 mcIUnit/mL Blood 08/29/2024 12:2 7 PM CDT 08/29/2024 12:43 PM CDT us Manjit Espinoza MD LAB BLOOD ORDERABLES Final Result [facility] Department [place] [address] * Respiratory pathogen panel Nasopharyngeal (08/29/2024 12:27 PM CDT) Pathologist [facility] Influenza A RNA Not Detected Not Detected Influenza B RNA Not Detected Not Detected [facility] RSV RNA Not Detected Not Detected [facility] COVID-19 RNA Not Detected Not Detected [facility] Coronavirus 229E RNA Not Detected Not Detected [facility] Coronavirus HKU1 RNA Not Detected Not Detected [facility] Coronavirus NL63 RNA Not Detected Not Detected [facility] Coronavirus OC43 RNA Not Detected Not Detected [facility] Adenovirus DNA Not Detected Not Detected [facility] Metapneumovirus RNA Not Detected Not Detected [facility] Rhinovirus/Enterov irus RNA Not Detected Not Detected [facility] Parainfluenza 1 RNA Not Detected Not Detected [facility] Parainfluenza 2 RNA Not Detected Not Detected [facility] Parainfluenza 3 RNA Not Detected Not Detected [facility] Parainfluenza 4 RNA Not Detected Not Detected [facility] B. pertussis DNA Not Detected Not Detected [facility] B. parapertussis DNA Not Detected Not Detected [facility] C. pneumoniae DNA Not Detected Not Detected [facility] M. pneumoniae DNA Not Detected Not Detected [facility] Nasopharyngeal 08/29/2024 12 :27 PM CDT 08/29/2024 12:46 PM CDT Narrative [facility] - 08/29/2024 1:58 PM CDT Is the Patient experiencing symptoms consistent with COVID?->Yes Surveillance testing for transplant patient?->No ??Interpretive Data The [employer] FilmArray Respiratory Panel (RP2.1) assay is a multiplexed real-time PCR based nucleic acid test capable of simultaneous qualitative detection and identification of multiple respiratory viral and bacterial nucleic acids, including SARS Coronavirus 2 (the causative agent of COVID-19). The following bacteria, viruses and virus subtypes can be identified using the [employer] RP2.1 assay: Bordetella pertussis, Bordetella parapertussis, Chlamydia pneumoniae, Mycoplasma pneumoniae, Adenovirus, SARS Coronavirus 2, seasonal coronaviruses (Coronavirus HKU1, Coronavirus NL63, Coronavirus 229E, and Coronavirus OC43), Influenza A, Influenza A subtype H1, Influenza A subtype H3, Influenza A subtype 2009 H1, Influenza B, Metapneumovirus, Parainfluenza 1, Parainfluenza 2, Parainfluenza 3, Parainfluenza 4, RSV, Rhinovirus/Enterovirus. Due to the genetic similarity between human Rhinovirus and Enterovirus, the FilmArray RP2.1 assay cannot reliably differentiate them. Coronavirus OC43 may cross-react with some isolates of Coronavirus HKU1. ??A dual positive result may be due to cross-reactivity or may indicate a co-infection. The detection and identification of specific viral and bacterial nucleic acids from individuals exhibiting signs and symptoms of a respiratory infection aids in the diagnosis of respiratory infection if used in conjunction with other clinical and epidemiological information. ??The results of this test should not be used as the sole basis for diagnosis, treatment, or other management decisions. ??Negative results in the setting of a respiratory illness may be due to infection with pathogens that are not detected by this test. ??Positive results do not rule out infection/co-infection with other organisms. ??The agent(s) detected by the FilmArray RP2.1 may not be the definite cause of disease. ??Additional testing (lab, imaging, etc.) may be necessary when evaluating a patient with possible respiratory tract infection. The FilmArray RP2.1 assay has FDA clearance for testing of [employer] swabs. ??The performance of additional specimen types has been assessed by the performing laboratory. ??The performance characteristics of this assay have been determined by [facility]. Current interpretive data was last revised on 22. us Manjit Espinoza MD LAB MICROBIOLOGY - GENERAL ORDERABLES Final Result [facility] Department of Laboratories [place], [place] [id number] * (ABNORMAL) CBC with auto differential (08/29/2024 12:27 PM CDT) [facility] WBC 4.4 3.8 - 9.9 K/cumm Hgb 11.0(L) 13.0 - 17.5 g/dL [facility] Hct 33.6(L) 38.9 - 50.3 % [facility] Plt 100(L) 150 - 400 K/cumm [facility] MPV 9.8 9.1 - 12.3 fL [facility] RBC 4.18(L) 4.30 - 5.80 M/cumm [facility] MCV 80.4(L) 81.3 - 96.4 fL [facility] MCH 26.3(L) 27.1 - 33.3 pg [facility] MCHC 32.7 32.3 - 35.7 g/dL [facility] RDW CV 14.8 11.1 - 14.9 % [facility] RDW SD 42.5 35.7 - 48.1 fL [facility] NRBC abs 0.02(H) 0.00 - 0.01 K/cumm [facility] Blood 08/29/2024 12:2 7 PM CDT 08/29/2024 12:43 PM CDT us Manjit Espinoza MD LAB BLOOD ORDERABLES Final Result [facility] Department [place] [address] * (ABNORMAL) Comprehensive metabolic panel (08/29/2024 12:27 PM CDT) Sodium 128(L) 135 - 145 mmol/L Potassium, pl 4.3 3.3 - 4.9 mmol/L [facility] Chloride 93(L) 97 - 110 mmol/L [facility] CO2 24 22 - 32 mmol/L [facility] Anion gap 11 2 - 15 mmol/L [facility] BUN 24 6 - 25 mg/dL [facility] Creatinine 1.04 0.80 - 1.30 mg/dL [facility] Glucose 116 70 - 199 mg/dL [facility] Comment: Interpretive Data Fasting glucose >/= [...] interpretive data was last revised 2022. Calcium 9.1 8.5 - 10.3 mg/dL [facility] Bilirubin, total 0.5 0.1 - 1.2 mg/dL [facility] Protein, pl 6.8 6.5 - 8.5 g/dL [facility] Albumin 3.4(L) 3.5 - 5.0 g/dL [facility] Alk phos 131(H) 40 - 130 Units/L [facility] ALT 32 7 - 55 Units/L [facility] AST 30 10 - 50 Units/L [facility] Blood 08/29/2024 12:2 7 PM CDT 08/29/2024 12:43 PM CDT us Manjit Espinoza MD LAB BLOOD ORDERABLES Final Result [facility] Department [place] [address] * eGFR (08/29/2024 10:34 AM CDT) eGFR 78 >=60 mL/min/1. 73 m2 Comment: Interpretive Data [...] interpretive data was last reviewed 2021. Blood 08/29/2024 10:3 4 AM CDT 08/29/2024 10:38 AM CDT us Stan Meza MD LAB BLOOD ORDERABLES Yolette banda Result [facility] Department [place] [address] * (ABNORMAL) Differential, auto (08/29/2024 10:34 AM CDT) Neutrophil abs 3.8 1.5 - 6.5 K/cumm Comment:Testing performed by : [facility], [address] [place] [phone] Lymphocyte abs 0.4(L) 0.8 - 3.3 K/cumm [facility] Comment:Testing performed by : [facility], [address] [place] [phone] Monocyte abs 0.2 0.2 - 0.8 K/cumm [facility] Comment:Testing performed by : [facility], [address] [place] [phone] Eosinophil abs 0.1 0.0 - 0.5 K/cumm [facility] Comment:Testing performed by : [facility], [address] [place] [phone] Basophil abs 0.0 0.0 - 0.1 K/cumm [facility] Comment:Testing performed by : [facility], [address] [place] [phone] Neutrophil pct 84.7 % [facility] Comment: Interpretive Data Percent cell count reference ranges are not reported, since discordance with absolute values may lead to misinterpretation of CBC data. Current Interpretive Data was last revised on 2018. Testing performed by: [facility], [address] [place] [phone] Lymphocyte pct 8.7 % [facility] Comment: Interpretive Data Percent cell count reference ranges are not reported, since discordance with absolute values may lead to misinterpretation of CBC data. Current Interpretive Data was last revised on 2018. Testing performed by: [facility], [address] [place] [phone] Monocyte pct 4.6 % [facility] Comment: Interpretive Data Percent cell count reference ranges are not reported, since discordance with absolute values may lead to misinterpretation of CBC data. Current Interpretive Data was last revised on 2018. Testing performed by: [facility], [address] [place] [phone] Eosinophil pct 1.5 % [facility] Comment: Interpretive Data Percent cell count reference ranges are not reported, since discordance with absolute values may lead to misinterpretation of CBC data. Current Interpretive Data was last revised on 2018. Testing performed by: [facility], [address] [place] [phone] Basophil pct 0.5 % [facility] Comment: Interpretive Data Percent cell count reference ranges are not reported, since discordance with absolute values may lead to misinterpretation of CBC data. Current Interpretive Data was last revised on 2018. Testing performed by: [facility], [address] [place] [phone] Blood 08/29/2024 10:3 4 AM CDT 08/29/2024 10:35 AM CDT us Stan Meza MD LAB BLOOD ORDERABLES Yolette veronika Result [facility] Department [place] [address] * (ABNORMAL) CBC with auto differential (08/29/2024 10:34 AM CDT) WBC 4.5 3.8 - 9.9 K/cumm Comment:Testing performed by : [facility], [address] [place] [address] Hgb 11.4(L) 13.0 - 17.5 g/dL [facility] Comment:Testing performed by : [facility], [address] [place] [address] Hct 35.2(L) 38.9 - 50.3 % [facility] Comment:Testing performed by : [facility], [address] [place] [address] Plt 111(L) 150 - 400 K/cumm [facility] Comment:Testing performed by : [facility], [address] [place] [address] MPV 7.3 6.8 - 10.4 fL [facility] Comment:Testing performed by : [facility], [address] [place] [address] RBC 4.32 4.30 - 5.80 M/cumm [facility] Comment:Testing performed by : [facility], [address] [place] [address] MCV 81.4 81.3 - 96.4 fL [facility] Comment:Testing performed by : [facility], [address] [place] [address] MCH 26.4(L) 27.1 - 33.3 pg [facility] Comment:Testing performed by : [facility], [address] [place] [address] MCHC 32.4 32.3 - 35.7 g/dL [facility] Comment:Testing performed by : [facility], [address] [place] [address] RDW CV 14.8 11.1 - 14.9 % [facility] Comment:Testing performed by : [facility], [address] [place] [phone] NRBC abs 0.00 0.00 - 0.01 K/cumm [facility] Comment:Testing performed by : [facility], [address] [place] [phone] Blood 08/29/2024 10:3 4 AM CDT 08/29/2024 10:35 AM CDT us Stan Meza MD LAB BLOOD ORDERABLES Yolette banda Result [facility] Department [place] [address] * (ABNORMAL) Comprehensive metabolic panel (08/29/2024 10:34 AM CDT) Sodium 128(L) 135 - 145 mmol/L Potassium, pl 3.9 3.3 - 4.9 mmol/L [facility] Chloride 92(L) 97 - 110 mmol/L [facility] CO2 26 22 - 32 mmol/L [facility] Anion gap 10 2 - 15 mmol/L [facility] BUN 25 6 - 25 mg/dL [facility] Creatinine 1.08 0.80 - 1.30 mg/dL [facility] Glucose 108 70 - 199 mg/dL [facility] Comment: Interpretive Data Fasting glucose >/= [...] 2022. Calcium 9.3 8.5 - 10.3 mg/dL [facility] Bilirubin, total 0.5 0.1 - 1.2 mg/dL [facility] Protein, pl 7.1 6.5 - 8.5 g/dL [facility] Albumin 3.5 3.5 - 5.0 g/dL [facility] Alk phos 136(H) 40 - 130 Units/L [facility] ALT 34 7 - 55 Units/L [facility] AST 25 10 - 50 Units/L [facility] Blood 08/29/2024 10:3 4 AM CDT 08/29/2024 10:38 AM CDT us Stan Meza MD LAB BLOOD ORDERABLES Yolette banda Result [facility] Department [place] [address] * eGFR (08/22/2024 11:10 AM CDT) eGFR >90 >=60 mL/min/1. 73 m2 Comment: [...] interpretive data was last reviewed 2021. Blood 08/22/2024 11:1 0 AM CDT 08/22/2024 11:28 AM CDT us Stan Meza MD LAB BLOOD ORDERABLES Yolette veronika Result [facility] Department [place] [address] * (ABNORMAL) Differential, auto (08/22/2024 11:10 AM CDT) Neutrophil abs 8.6(H) 1.5 - 6.5 K/cumm Comment:Testing performed by : [facility], [address] [place], [place] [phone] Lymphocyte abs 0.3(L) 0.8 - 3.3 K/cumm [facility] Comment:Testing performed by : [facility], [address] [place] [phone] Monocyte abs 0.1(L) 0.2 - 0.8 K/cumm [facility] Comment:Testing performed by : [facility], [address] [place] [phone] Eosinophil abs 0.0 0.0 - 0.5 K/cumm [facility] Comment:Testing performed by : [facility], [address] [place], [place] [phone] Basophil abs 0.0 0.0 - 0.1 K/cumm [facility] Comment:Testing performed by : [facility], [address] [place] [phone] Neutrophil pct 95.7 % [facility] Comment: Interpretive Data Percent cell count reference ranges are not reported, since discordance with absolute values may lead to misinterpretation of CBC data. Current Interpretive Data was last revised on 2018. Testing performed by: [facility], [address] [place] [phone] Lymphocyte pct 2.8 % [facility] Comment: Interpretive Data Percent cell count reference ranges are not reported, since discordance with absolute values may lead to misinterpretation of CBC data. Current Interpretive Data was last revised on 2018. Testing performed by: [facility], [address] [place], [place] [phone] Monocyte pct 1.5 % [facility] Comment: Interpretive Data Percent cell count reference ranges are not reported, since discordance with absolute values may lead to misinterpretation of CBC data. Current Interpretive Data was last revised on 2018. Testing performed by: [facility], [address] [place] [phone] Eosinophil pct 0.0 % [facility] Comment: Interpretive Data Percent cell count reference ranges are not reported, since discordance with absolute values may lead to misinterpretation of CBC data. Current Interpretive Data was last revised on 2018. Testing performed by: [facility], [address] [place], [place] [phone] Basophil pct 0.0 % [facility] Comment: Interpretive Data Percent cell count reference ranges are not reported, since discordance with absolute values may lead to misinterpretation of CBC data. Current Interpretive Data was last revised on 2018. Testing performed by: [facility], [address] [place] [phone] Blood 08/22/2024 11:1 0 AM CDT 08/22/2024 11:25 AM CDT us Stan Meza MD LAB BLOOD ORDERABLES Yolette l Result [facility] Department of Laboratories [place], [place] [id number] * (ABNORMAL) Thyroid Function [place] (08/22/2024 11:10 AM CDT) TSH 0.27(L) 0.30 - 4.20 mcIUnit/mL Blood 08/22/2024 11:1 0 AM CDT 08/22/2024 11:28 AM CDT us Stan Meza MD LAB BLOOD ORDERABLES Yolette banda Result [facility] Department [place] [address] * (ABNORMAL) CBC with auto differential (08/22/2024 11:10 AM CDT) WBC 9.0 3.8 - 9.9 K/cumm Comment:Testing performed by : [facility], [address] [place] [address] Hgb 12.1(L) 13.0 - 17.5 g/dL [facility] Comment:Testing performed by : [facility], [address] [place] [address] Hct 37.7(L) 38.9 - 50.3 % [facility] Comment:Testing performed by : [facility], [address] [place] [address] Plt 216 150 - 400 K/cumm [facility] Comment:Testing performed by : [facility], [address] [place] [address] MPV 7.3 6.8 - 10.4 fL [facility] Comment:Testing performed by : [facility], [address] [place] [address] RBC 4.49 4.30 - 5.80 M/cumm [facility] Comment:Testing performed by : [facility], [address] [place] [address] MCV 84.1 81.3 - 96.4 fL [facility] Comment:Testing performed by : [facility], [address] [place] [address] MCH 27.0(L) 27.1 - 33.3 pg [facility] Comment:Testing performed by : [facility], [address] [place] [address] MCHC 32.2(L) 32.3 - 35.7 g/dL [facility] Comment:Testing performed by : [facility], [address] [place] [phone] RDW CV 14.5 11.1 - 14.9 % [facility] Comment:Testing performed by : [facility], [address] [place] [phone] NRBC abs 0.00 0.00 - 0.01 K/cumm [facility] Comment:Testing performed by : [facility], [address] [place] [phone] Blood 08/22/2024 11:1 0 AM CDT 08/22/2024 11:25 AM CDT Stan Meza MD LAB BLOOD ORDERABLES Yolette l Result Performing Organization Address [facility] de Phone Number [facility] [place] [address] * T3, free (08/22/2024 11:10 AM CDT) Free T3 2.1 2.0 - 4.4 pg/mL Blood 08/22/2024 11:1 0 AM CDT 08/22/2024 11:28 AM CDT Narrative [facility] - 08/22/2024 12:47 PM CDT This test was reflexed from a T4 result. Stan Meza MD LAB BLOOD ORDERABLES Yolette l Result Performing Organization Address [facility] Co de Phone Number [facility] [place] [address] * T4, free (08/22/2024 11:10 AM CDT) Free T4 1.29 0.90 - 1.70 ng/dL Blood 08/22/2024 11:1 0 AM CDT 08/22/2024 11:28 AM CDT Narrative [facility] - 08/22/2024 12:25 PM CDT This test was reflexed from a TSH result. us Stan Meza MD LAB BLOOD ORDERABLES Yolette banda Result [facility] Department [place] [address] * (ABNORMAL) Comprehensive metabolic panel (08/22/2024 11:10 AM CDT) Sodium 131(L) 135 - 145 mmol/L Potassium, pl 4.2 3.3 - 4.9 mmol/L [facility] Chloride 97 97 - 110 mmol/L [facility] CO2 26 22 - 32 mmol/L [facility] Anion gap 8 2 - 15 mmol/L [facility] BUN 12 6 - 25 mg/dL [facility] Creatinine 0.66(L) 0.80 - 1.30 mg/dL [facility] Glucose 156 70 - 199 mg/dL [facility] Comment: Interpretive Data Fasting glucose >/= [...] classification and Diagnosis of Diabetes Diabetes Care 2021; 46: S19-S40. Current interpretive data was last revised 2022. Calcium 9.3 8.5 - 10.3 mg/dL [facility] Bilirubin, total 0.3 0.1 - 1.2 mg/dL [facility] Protein, pl 7.5 6.5 - 8.5 g/dL [facility] Albumin 3.6 3.5 - 5.0 g/dL [facility] Alk phos 145(H) 40 - 130 Units/L [facility] ALT 29 7 - 55 Units/L [facility] AST 25 10 - 50 Units/L [facility] Blood 08/22/2024 11:1 0 AM CDT 08/22/2024 11:28 AM CDT us Stan Meza MD LAB BLOOD ORDERABLES Yolette l Result [facility] Department [place] [address] * RAD ONC ARIA COURSE SUMMARY (08/19/2024 11:14 AM CDT) Course Name [id number]_Sa c_24 ARIA Course Plan Date 08/01/2024 3:33 PM ARIA Elapsed Days 4 ARIA Treatment Start Date 08/12/2024 ARIA Treatment Site SACRUM_DPV ARIA Dose Given To Date (cGy) 2,000 ARIA Session Dosage Given (cGy) 0 ARIA Treatment Site STERNUM_DPV ARIA Dose Given To Date (cGy) 2,000 ARIA Session Dosage Given (cGy) 0 ARIA Plan ID SACRUM ARIA Fractions Treated 5 ARIA Prescribed Dose Per Fraction (cGy) 400 ARIA Prescribed Total Dose (cGy) 2,000 ARIA Plan ID STERNUM ARIA Fractions Treated 5 ARIA Prescribed Dose Per Fraction (cGy) 400 ARIA Prescribed Total Dose (cGy) 2,000 ARIA 08/19/2024 11:1 4 AM CDT us Not In File Miscellaneous RADIATION ONCOLOGY ORD ERABLES Final Result ARIA * RAD ONC ARIA SESSION SUMMARY (08/16/2024 11:46 AM CDT) Course Name C1_Stern_Sa c_24 ARIA Course Plan Date 08/01/2024 3:33 PM ARIA Elapsed Days 4 ARIA Treatment Start Date 08/12/2024 ARIA Treatment Site SACRUM_DPV ARIA Dose Given To Date (cGy) 2,000 ARIA Session Dosage Given (cGy) 400 ARIA Treatment Site STERNUM_DPV ARIA Dose Given To Date (cGy) 2,000 ARIA Session Dosage Given (cGy) 400 ARIA Plan ID SACRUM ARIA Fractions Treated 5 ARIA Prescribed Dose Per Fraction (cGy) 400 ARIA Prescribed Total Dose (cGy) 2,000 ARIA Plan ID STERNUM ARIA Fractions Treated 5 ARIA Prescribed Dose Per Fraction (cGy) 400 ARIA Prescribed Total Dose (cGy) 2,000 ARIA 08/16/2024 11:4 6 AM CDT us Not In File Miscellaneous RADIATION ONCOLOGY ORD ERABLES Final Result TAMELA * RAD ONC ARIA SESSION SUMMARY (08/15/2024 12:13 PM CDT) Pathologist [facility] Course Name C1_Stern_Sa c_24 ARIA Course Plan Date 08/01/2024 3:33 PM ARIA Elapsed Days 3 ARIA Treatment Start Date 08/12/2024 ARIA Treatment Site SACRUM_DPV ARIA Dose Given To Date (cGy) 1,600 ARIA Session Dosage Given (cGy) 400 ARIA Treatment Site STERNUM_DPV ARIA Dose Given To Date (cGy) 1,600 ARIA Session Dosage Given (cGy) 400 ARIA Plan ID SACRUM ARIA Fractions Treated 4 ARIA Prescribed Dose Per Fraction (cGy) 400 ARIA Prescribed Total Dose (cGy) 2,000 ARIA Plan ID STERNUM ARIA Fractions Treated 4 ARIA Prescribed Dose Per Fraction (cGy) 400 ARIA Prescribed Total Dose (cGy) 2,000 ARIA 08/15/2024 12:1 3 PM CDT us Not In File Miscellaneous RADIATION ONCOLOGY ORD ERABLES Final Result ARIA * eGFR (08/15/2024 6:45 AM CDT) eGFR >90 >=60 mL/min/1. 73 m2 Comment: [...] interpretive data was last reviewed 2021. Blood 08/15/2024 6:45 AM CDT 08/15/2024 6:56 AM CDT us Stan Meza MD LAB BLOOD ORDERABLES Yolette banda Result [facility] Department of Laboratories [place], [place] [id number] * (ABNORMAL) Differential, auto (08/15/2024 6:45 AM CDT) Neutrophil abs 9.6(H) 1.5 - 6.5 K/cumm Comment:Testing performed by : [facility], [facility] [place] [phone] Lymphocyte abs 1.7 0.8 - 3.3 K/cumm [facility] Comment:Testing performed by : [facility], [facility] [place] [phone] Monocyte abs 1.0(H) 0.2 - 0.8 K/cumm [facility] Comment:Testing performed by : [facility], [address] [place] [phone] Eosinophil abs 0.3 0.0 - 0.5 K/cumm [facility] Comment:Testing performed by : [facility], [address] [place] [phone] Basophil abs 0.1 0.0 - 0.1 K/cumm [facility] Comment:Testing performed by : [facility], [address] [place] [phone] Neutrophil pct 75.9 % [facility] Comment: Interpretive Data Percent cell count reference ranges are not reported, since discordance with absolute values may lead to misinterpretation of CBC data. Current Interpretive Data was last revised on 2018. Testing performed by: [facility], [address] [place] [phone] Lymphocyte pct 13.0 % [facility] Comment: Interpretive Data Percent cell count reference ranges are not reported, since discordance with absolute values may lead to misinterpretation of CBC data. Current Interpretive Data was last revised on 2018. Testing performed by: [facility], [address] [place] [phone] Monocyte pct 8.2 % [facility] Comment: Interpretive Data Percent cell count reference ranges are not reported, since discordance with absolute values may lead to misinterpretation of CBC data. Current Interpretive Data was last revised on 2018. Testing performed by: [facility], [address] [place] [phone] Eosinophil pct 2.3 % [facility] Comment: Interpretive Data Percent cell count reference ranges are not reported, since discordance with absolute values may lead to misinterpretation of CBC data. Current Interpretive Data was last revised on 2018. Testing performed by: [facility], [address] [place] [phone] Basophil pct 0.6 % [facility] Comment: Interpretive Data Percent cell count reference ranges are not reported, since discordance with absolute values may lead to misinterpretation of CBC data. Current Interpretive Data was last revised on 2018. Testing performed by: [facility], [address] [place] [address] Blood 08/15/2024 6:45 AM CDT 08/15/2024 6:55 AM CDT us Stan Meza MD LAB BLOOD ORDERABLES Yolette l Result [facility] [facility] Department [place] [address] * (ABNORMAL) CBC with auto differential (08/15/2024 6:45 AM CDT) WBC 12.7(H) 3.8 - 9.9 K/cumm Comment:Testing performed by : [facility], [address] [place] [address] Hgb 12.3(L) 13.0 - 17.5 g/dL [facility] Comment:Testing performed by : [facility], [address] [place] [address] Hct 38.3(L) 38.9 - 50.3 % [facility] Comment:Testing performed by : [facility], [address] [place] [address] Plt 341 150 - 400 K/cumm [facility] Comment:Testing performed by : [facility], [address] [place] [address] MPV 6.6(L) 6.8 - 10.4 fL [facility] Comment:Testing performed by : [facility], [address] [place] [address] RBC 4.55 4.30 - 5.80 M/cumm [facility] Comment:Testing performed by : [facility], [address] [place] [address] MCV 84.1 81.3 - 96.4 fL [facility] Comment:Testing performed by : [facility], [address] [place] [address] MCH 27.1 27.1 - 33.3 pg [facility] Comment:Testing performed by : [facility], [address] [place] [phone] MCHC 32.2(L) 32.3 - 35.7 g/dL [facility] Comment:Testing performed by : [facility], [address] [place] [phone] RDW CV 13.9 11.1 - 14.9 % [facility] Comment:Testing performed by : [facility], [address] [place] [phone] NRBC abs 0.00 0.00 - 0.01 K/cumm [facility] Comment:Testing performed by : [facility], [address] [place] [phone] Blood 08/15/2024 6:45 AM CDT 08/15/2024 6:55 AM CDT Stan Meza MD LAB BLOOD ORDERABLES Yolette l Result Performing Organization Address City/[facility] Co de Phone Number [facility] Department [place] [address] * TSH (08/15/2024 6:45 AM CDT) Pathologist [facility] [place] Thyroid Stimulating Hormone 2.36 0.30 - 4.20 mcIUnit/mL Blood 08/15/2024 6:45 AM CDT 08/15/2024 6:56 AM CDT Stan Meza MD LAB BLOOD ORDERABLES Yolette l Result Performing Organization Address City/[facility] Co de Phone Number [facility] Department of [place] [address] * (ABNORMAL) Comprehensive metabolic panel (08/15/2024 6:45 AM CDT) Sodium 133(L) 135 - 145 mmol/L Potassium, pl 4.5 3.3 - 4.9 mmol/L [facility] Chloride 98 97 - 110 mmol/L [facility] CO2 29 22 - 32 mmol/L [facility] Anion gap 6 2 - 15 mmol/L [facility] BUN 8 6 - 25 mg/dL [facility] Creatinine 0.71(L) 0.80 - 1.30 mg/dL [facility] Glucose 98 70 - 199 mg/dL [facility] Comment: Interpretive Data Fasting glucose >/= [...] interpretive data was last revised 2022. Calcium 9.5 8.5 - 10.3 mg/dL [facility] Bilirubin, total 0.4 0.1 - 1.2 mg/dL [facility] Protein, pl 7.1 6.5 - 8.5 g/dL [facility] Albumin 3.4(L) 3.5 - 5.0 g/dL [facility] Alk phos 163(H) 40 - 130 Units/L [facility] ALT 36 7 - 55 Units/L [facility] AST 22 10 - 50 Units/L [facility] Blood 08/15/2024 6:45 AM CDT 08/15/2024 6:56 AM CDT us Stan Meza MD LAB BLOOD ORDERABLES Yolette l Result [facility] [place] [address] * RAD ONC ARIA SESSION SUMMARY (08/14/2024 9:29 AM CDT) Course Name [id number] c_24 ARIA Course Plan Date 08/01/2024 3:33 PM ARIA Elapsed Days 2 ARIA Treatment Start Date 08/12/2024 ARIA Treatment Site SACRUM_DPV ARIA Dose Given To Date (cGy) 1,200 ARIA Session Dosage Given (cGy) 400 ARIA Treatment Site STERNUM_DPV ARIA Dose Given To Date (cGy) 1,200 ARIA Session Dosage Given (cGy) 400 ARIA Plan ID SACRUM ARIA Fractions Treated 3 ARIA Prescribed Dose Per Fraction (cGy) 400 ARIA Prescribed Total Dose (cGy) 2,000 ARIA Plan ID STERNUM ARIA Fractions Treated 3 ARIA Prescribed Dose Per Fraction (cGy) 400 ARIA Prescribed Total Dose (cGy) 2,000 ARIA 08/14/2024 9:29 AM CDT us Not In File Miscellaneous RADIATION ONCOLOGY ORD ERABLES Final Result Performing Organization Address City/State/[facility] Co de Phone Number CLAYTONA * RAD ONC ARIA SESSION SUMMARY (08/13/2024 8:57 AM CDT) Course Name [id number] c_24 ARIA Course Plan Date 08/01/2024 3:33 PM ARIA Elapsed Days 1 ARIA Treatment Start Date 08/12/2024 ARIA Treatment Site SACRUM_DPV ARIA Dose Given To Date (cGy) 800 ARIA Session Dosage Given (cGy) 400 ARIA Treatment Site STERNUM_DPV ARIA Dose Given To Date (cGy) 800 ARIA Session Dosage Given (cGy) 400 ARIA Plan ID SACRUM ARIA Fractions Treated 2 ARIA Prescribed Dose Per Fraction (cGy) 400 ARIA Prescribed Total Dose (cGy) 2,000 ARIA Plan ID STERNUM ARIA Fractions Treated 2 ARIA Prescribed Dose Per Fraction (cGy) 400 ARIA Prescribed Total Dose (cGy) 2,000 ARIA 08/13/2024 8:57 AM CDT us Not In File Miscellaneous RADIATION ONCOLOGY ORD ERABLES Final Result ARIA * RAD ONC ARIA SESSION SUMMARY (08/12/2024 4:02 PM CDT) Pathologist [facility] [place] Course Name [id number] c_24 ARIA Course Plan Date 08/01/2024 3:33 PM ARIA Elapsed Days 0 ARIA Treatment Start Date 08/12/2024 ARIA Treatment Site SACRUM_DPV ARIA Dose Given To Date (cGy) 400 ARIA Session Dosage Given (cGy) 400 ARIA Treatment Site STERNUM_DPV ARIA Dose Given To Date (cGy) 400 ARIA Session Dosage Given (cGy) 400 ARIA Plan ID SACRUM ARIA Fractions Treated 1 ARIA Prescribed Dose Per Fraction (cGy) 400 ARIA Prescribed Total Dose (cGy) 2,000 ARIA Plan ID STERNUM ARIA Fractions Treated 1 ARIA Prescribed Dose Per Fraction (cGy) 400 ARIA Prescribed Total Dose (cGy) 2,000 ARIA 08/12/2024 4:02 PM CDT us Not In File Miscellaneous RADIATION ONCOLOGY ORD ERABLES Final Result ARIA * eGFR (08/01/2024 8:02 AM CDT) [facility] eGFR >90 >=60 mL/min/1. 73 m2 Comment: [...] interpretive data was last reviewed 2021. Blood 08/01/2024 8:02 AM CDT 08/01/2024 8:15 AM CDT us Stan Meza MD LAB BLOOD ORDERABLES Yolette banda Result [facility] Department [place] [address] * (ABNORMAL) Differential, auto (08/01/2024 8:02 AM CDT) Neutrophil abs 5.7 1.5 - 6.5 K/cumm Comment:Testing performed by : [facility], [address] [place] [phone] Lymphocyte abs 1.9 0.8 - 3.3 K/cumm [facility] Comment:Testing performed by : [facility], [address] [place] [phone] Monocyte abs 1.1(H) 0.2 - 0.8 K/cumm [facility] Comment:Testing performed by : [facility], [address] [place] [phone] Eosinophil abs 0.5 0.0 - 0.5 K/cumm [facility] Comment:Testing performed by : [facility], [address] [place] [phone] Basophil abs 0.1 0.0 - 0.1 K/cumm [facility] Comment:Testing performed by : [facility], [address] [place] [phone] Neutrophil pct 61.6 % [facility] Comment: Interpretive Data Percent cell count reference ranges are not reported, since discordance with absolute values may lead to misinterpretation of CBC data. Current Interpretive Data was last revised on 2018. Testing performed by: [facility], [address] [place] [phone] Lymphocyte pct 20.3 % [facility] Comment: Interpretive Data Percent cell count reference ranges are not reported, since discordance with absolute values may lead to misinterpretation of CBC data. Current Interpretive Data was last revised on 2018. Testing performed by: [facility], [address] [place] [phone] Monocyte pct 11.9 % [facility] Comment: Interpretive Data Percent cell count reference ranges are not reported, since discordance with absolute values may lead to misinterpretation of CBC data. Current Interpretive Data was last revised on 2018. Testing performed by: [facility], [address] [place] [phone] Eosinophil pct 5.4 % [facility] Comment: Interpretive Data Percent cell count reference ranges are not reported, since discordance with absolute values may lead to misinterpretation of CBC data. Current Interpretive Data was last revised on 2018. Testing performed by: [facility], [address] [place] [phone] Basophil pct 0.8 % [facility] Comment: Interpretive Data Percent cell count reference ranges are not reported, since discordance with absolute values may lead to misinterpretation of CBC data. Current Interpretive Data was last revised on 2018. Testing performed by: [facility], [address] [place] [phone] Blood 08/01/2024 8:02 AM CDT 08/01/2024 8:08 AM CDT us Stan Meza MD LAB BLOOD ORDERABLES Yolette banda Result [facility] Department [place] [address] * (ABNORMAL) CBC with auto differential (08/01/2024 8:02 AM CDT) WBC 9.3 3.8 - 9.9 K/cumm Comment:Testing performed by : [facility], [address] [place], [place] [phone] Hgb 11.7(L) 13.0 - 17.5 g/dL [facility] Comment:Testing performed by : [facility], [address] [place], [place] [phone] Hct 35.5(L) 38.9 - 50.3 % [facility] Comment:Testing performed by : [facility], [address] [place], [place] [phone] Plt 345 150 - 400 K/cumm [facility] Comment:Testing performed by : [facility], [address] [place], [place] [phone] MPV 6.9 6.8 - 10.4 fL [facility] Comment:Testing performed by : [facility], [address] [place], [place] [phone] RBC 4.26(L) 4.30 - 5.80 M/cumm [facility] Comment:Testing performed by : [facility], [address] [place], [place] [phone] MCV 83.5 81.3 - 96.4 fL [facility] Comment:Testing performed by : [facility], [address] [place], [place] [phone] MCH 27.5 27.1 - 33.3 pg [facility] Comment:Testing performed by : [facility], [address] [place] [address] MCHC 33.0 32.3 - 35.7 g/dL [facility] Comment:Testing performed by : [facility], [address] [place], [place] [phone] RDW CV 12.9 11.1 - 14.9 % [facility] Comment:Testing performed by : [facility], [address] [place] [address] NRBC abs 0.00 0.00 - 0.01 K/cumm [facility] Comment:Testing performed by : [facility], [address] [place] [phone] Blood 08/01/2024 8:02 AM CDT 08/01/2024 8:08 AM CDT us Stan Meza MD LAB BLOOD ORDERABLES Yolette banda Result [facility] Department [place] [address] * (ABNORMAL) Comprehensive metabolic panel (08/01/2024 8:02 AM CDT) Sodium 133(L) 135 - 145 mmol/L Potassium, pl 3.6 3.3 - 4.9 mmol/L [facility] Chloride 98 97 - 110 mmol/L [facility] CO2 28 22 - 32 mmol/L [facility] Anion gap 7 2 - 15 mmol/L [facility] BUN 6 6 - 25 mg/dL [facility] Creatinine 0.66(L) 0.80 - 1.30 mg/dL [facility] Glucose 104 70 - 199 mg/dL [facility] Comment: Interpretive Data Fasting glucose >/= [...] interpretive data was last revised 2022. Calcium 9.6 8.5 - 10.3 mg/dL [facility] Bilirubin, total 0.4 0.1 - 1.2 mg/dL [facility] Protein, pl 7.6 6.5 - 8.5 g/dL [facility] Albumin 3.3(L) 3.5 - 5.0 g/dL [facility] Alk phos 125 40 - 130 Units/L [facility] ALT 19 7 - 55 Units/L [facility] AST 18 10 - 50 Units/L [facility] Blood 08/01/2024 8:02 AM CDT 08/01/2024 8:15 AM CDT us Stan Meza MD LAB BLOOD ORDERABLES Yolette l Result [facility] Department [place] [address] * PET/CT FDG Skull to Thigh (07/31/2024 4:05 PM CDT) Anatomical Region Laterality Modality N/A Positron Emissio n Tomography (PET) 07/31/2024 4:56 PM CDT Impressions 07/31/2024 5:39 PM CDT 1. Overall disease progression since the CT dated 04/17/2024 with markedly FDG avid malignant left hilar mass and metastatic left supraclavicular, mediastinal, hilar juan, osseous, bilateral adrenal, subcutaneous/intramuscular deposits, and contralateral lung disease. 2. Small left pleural effusion with left upper pleural nodularity likely represents additional sites of malignancy. 3. Markedly FDG avid lytic sacral soft tissue lesion appears to efface/infiltrate the right S2 sacral foramina. Correlate with relevant neurological symptoms. 4. 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 The above results were discussed with Dr. Doan by the dictating physician at approximately 5 PM on 07-31-2024. Dictated by: Sree Wilson M.D. The radiology attending physician has personally reviewed this study, and had reviewed and/or edited this written report and agrees with it. Electronically signed by: Mitchell Colmenares M.D. Narrative 07/31/2024 5:39 PM CDT EXAMINATION: TUMOR FDG-PET/CT IMAGING DATE OF STUDY: ??07/31/2024 SCANNER: [employer] (SQ1). ??This is a high-resolution scanner, which can result in higher SUVs (and even detection of new small lesions) compared to older scanners. RADIOPHARMACEUTICAL: 9.4 mCi F-18 Fluorodeoxyglucose (FDG) i.v. 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 The study is requested for initial staging. ?? Initial treatment strategy. TECHNIQUE: ?? The patient's fasting blood glucose level, measured by glucometer before injection of FDG, was 110 mg/dL. ??After intravenous administration of FDG, noncontrast CT images were obtained for attenuation correction and for fusion with emission PET images to allow for anatomical localization of PET findings. ??Emission PET images were then obtained. ??The study was interpreted on the [employer] workstation. ??The mean liver SUV (reported for dairy quality assurance officer purposes) is 2.8. ?? The total scanned area was skull base to proximal thighs. Images of the body were obtained starting 50 minutes after injection of tracer. All reported SUVs are maximum SUVs, unless otherwise specified. COMPARISON: Chest CT dated 04/17/2024 DESCRIPTORS OF LESION FDG AVIDITY: Minimal: ? <= blood pool ? Mild: ?> blood pool and <= liver ? Moderate: ?? > liver and <= 2x SUVmax liver ? Moderate to marked: ?? >2x SUVmax liver and <= 3x SUVmax liver ? Marked: ? > 3x SUVmax liver ? FINDINGS: Markedly FDG avid left hilar mass with metabolic dimensions of 4.3 x 6.1 cm (SUV 15.2 on image 103). Confluent hypermetabolic soft tissue along the left hilum/sternum may represent contiguous tumor involvement with confluent lymphadenopathy. Reduced left vocal cord FDG uptake is likely due to vocal cord paralysis due to left recurrent laryngeal nerve compression from the aortopulmonary lesions. There is markedly FDG avid left hilar, subcarinal, left supraclavicular and mediastinal lymphadenopathy. An index 1.6 x 1.8 m markedly FDG avid subcarinal node (SUV 19.3, image 106). Mild heterogenous activity [...] multiple, markedly FDG avid lytic osseous lesions. ??These include lesions involving the left 9th rib, [...] the left hip joint. Trace mesenteric edema. Procedure Note Mitchell Colmenares MD - 07/31/2024 EXAMINATION: TUMOR FDG-PET/CT IMAGING DATE OF STUDY: 07/31/2024 SCANNER: [facility] [employer] (SQ1). This is a high-resolution scanner, which can result in higher SUVs (and even detection of new small lesions) compared to older scanners. RADIOPHARMACEUTICAL: 9.4 mCi F-18 Fluorodeoxyglucose (FDG) i.v. 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 The study is requested for initial staging. Initial treatment strategy. TECHNIQUE: The patient's fasting blood glucose level, measured by glucometer before injection of FDG, was 110 mg/dL. After intravenous administration of FDG, noncontrast CT images were obtained for attenuation correction and for fusion with emission PET images to allow for anatomical localization of PET findings. Emission PET images were then obtained. The study was interpreted on the [employer] workstation. The mean liver SUV (reported for dairy quality assurance officer purposes) is 2.8. The total scanned area was skull base to proximal thighs. Images of the body were obtained starting 50 minutes after injection of tracer. All reported SUVs are maximum SUVs, unless otherwise specified. COMPARISON: Chest CT dated 04/17/2024 DESCRIPTORS OF LESION FDG AVIDITY: Minimal: <= blood pool Mild: > blood pool and <= liver Moderate: > liver and <= 2x SUVmax liver Moderate to marked: >2x SUVmax liver and <= 3x SUVmax liver Marked: > 3x SUVmax liver FINDINGS: Markedly FDG avid left hilar mass with metabolic dimensions of 4.3 x 6.1 cm (SUV 15.2 on image 103). Confluent hypermetabolic soft tissue along the left hilum/sternum may represent contiguous tumor involvement with confluent lymphadenopathy. Reduced left vocal cord FDG uptake is likely due to vocal cord paralysis due to left recurrent laryngeal nerve compression from the aortopulmonary lesions. There is markedly FDG avid left hilar, subcarinal, left supraclavicular and mediastinal lymphadenopathy. An index 1.6 x 1.8 m markedly FDG avid subcarinal node (SUV 19.3, image 106). Mild heterogenous activity [...] the left hip joint. Trace mesenteric edema. IMPRESSION: 1. Overall disease progression since the CT dated 04/17/2024 with markedly FDG avid malignant left hilar mass and metastatic left supraclavicular, mediastinal, hilar juan, osseous, bilateral adrenal, subcutaneous/intramuscular deposits, and contralateral lung disease. 2. Small left pleural effusion with left upper pleural nodularity likely represents additional sites of malignancy. 3. Markedly FDG avid lytic sacral soft tissue lesion appears to efface/infiltrate the right S2 sacral foramina. Correlate with relevant neurological symptoms. 4. 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 The above results were discussed with Dr. Doan by the dictating physician at approximately 5 PM on 07-31-2024. Dictated by: Sree Wilson M.D. The radiology attending physician has personally reviewed this study, and had reviewed and/or edited this written report and agrees with it. Electronically signed by: Mitchell Colmenares M.D. us Stan Meza MD IMG PET PROCEDURES Final Result * MRI Brain W WO Contrast (07/31/2024 2:11 PM CDT) Anatomical Region Laterality Modality Head and Neck N/A Magnetic Resonan ce 07/31/2024 2:56 PM CDT Impressions 07/31/2024 4:31 PM CDT 1. No evidence of intracranial metastatic disease. 2. Advanced microvascular ischemic changes and prior right cerebellar infarct. Dictated by: Get Stanley MD The radiology attending physician has personally reviewed this study, and had reviewed and/or edited this written report and agrees with it. Electronically signed by: Ian Butler MD Narrative 07/31/2024 4:31 PM CDT EXAMINATION: Magnetic resonance imaging (MRI) of the brain and brainstem without and with contrast HISTORY: 63-year-old male with newly diagnosed non-small cell lung cancer TECHNIQUE: Multiplanar multi-weighted MRI of the brain and brainstem was performed without and with intravenous contrast using the general brain protocol. Contrast information: 20 mL Gadoterate Meglumine COMPARISON: None Available. FINDINGS: A prior infarct is seen within the right superior cerebellum. Punctate foci of susceptibility in the left lateral [...] in the periventricular and subcortical white matter are most consistent with chronic small vessel ischemic change. There is parenchymal volume loss. Diffusion weighted images reveal no hyperintensities to suggest acute cerebral infarction. The ventricles are normal in size and position without evidence of hydrocephalus. The paranasal sinuses are normal. The visualized portions of the mastoids are unremarkable. The orbits appear normal. Normal flow voids are demonstrated in the carotid arteries and basilar artery. There is no abnormal contrast enhancement. Procedure Note Ian Butler MD - 07/31/2024 EXAMINATION: Magnetic resonance imaging (MRI) of the brain and brainstem without and with contrast HISTORY: 63-year-old male with newly diagnosed non-small cell lung cancer TECHNIQUE: Multiplanar multi-weighted MRI of the brain and brainstem was performed without and with intravenous contrast using the general brain protocol. Contrast information: 20 mL Gadoterate Meglumine COMPARISON: None Available. FINDINGS: A prior infarct is seen within the right superior cerebellum. Punctate foci of susceptibility in the left lateral [...] in the periventricular and subcortical white matter are most consistent with chronic small vessel ischemic change. There is parenchymal volume loss. Diffusion weighted images reveal no hyperintensities to suggest acute cerebral infarction. The ventricles are normal in size and position without evidence of hydrocephalus. The paranasal sinuses are normal. The visualized portions of the mastoids are unremarkable. The orbits appear normal. Normal flow voids are demonstrated in the carotid arteries and basilar artery. There is no abnormal contrast enhancement. IMPRESSION: 1. No evidence of intracranial metastatic disease. 2. Advanced microvascular ischemic changes and prior right cerebellar infarct. Dictated by: Get Stanley MD The radiology attending physician has personally reviewed this study, and had reviewed and/or edited this written report and agrees with it. Electronically signed by: Ian Butler MD Stan Meza MD IMG MRI PROCEDURES Final Result from Last 3 Months Insurance [facility] Care Teams Button Clamper Relationship Specialty Start Date End Date Matthew Mccabe MD [address] [place] [id number] PCP - General Family Medicine 05/13/24 Stan Meza MD [address] [facility], [address] [place] [address] Medical Oncologist/[employer] Medical Oncology 06/28/24
--- OUTSIDE RECORDS SUMMARY | 2024-10-30 07:02 | XMS_ITS | Encounter Summary ---
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 Pt receiving palliative RTto sternum and sacrum and Pembrolizumab / Albumin-bound PACLItaxel (Abraxane) / CARBOplatin Weight: Wt Readings from Last 10 Encounters: 10/03/24 91 kg (200 lb 9.9 oz) 09/25/24 91.9 kg (202 lb 9.6 oz) 09/05/24 92.4 kg (203 lb 9.6 oz) 08/29/24 93 kg (205 lb) 08/29/24 93.1 kg (205 lb 3.2 oz) 08/22/24 96.8 kg (213 lb 6.5 oz) 08/22/24 95.3 kg (210 lb) 08/15/24 98.6 kg (217 lb 6.4 oz) 08/12/24 99 kg (218 lb 4.8 oz) 08/01/24 97.5 kg (215 lb) Current BMI: 32.38 [place] body weight: 63.8 kg (140 lb 10.5 oz) Adjusted ideal body weight: 74.7 kg (164 lb 10.2 oz) Estimated Energy Needs: Based on: 92 kg Calories 0558-6663 kcal/day 20-25 kcal/kg Protein 92-110 g/day 1.0-1.2 g/kg Fluid 4952-8633 ml/day or Per MD 1 ml/kcal or per MD Impression: Spoke with pt over the phone. Pt reports he has very poor appetite. He is still taking Mirtazapine 7.5 mg and still not working for him. Pt with nausea and vomiting consistently. Pt reports he ran out of anti emetics. Pt reported he just threw up his boiled egg and toast, which is his favorite. Pt with severe constipation and taking some dulcolax. He is drinking Ensure BID. Intervention: Patient with poor appetite: - Encourage small frequent meals and snacks with calorie dense foods - Suggest eating every 2-3 hours to improve intake - Include protein with each meal; reviewed sources - Discussed ways to add calories to meals without adding volume - Recommend Ensure Plus TID-QID with ice cream for added nutrients and protein - Reviewed need for at least 1.5L caffeine free fluids to prevent dehydration - Contacted RN regarding increasing appetite stimulant dose or trying Olanzapine and to order anti nausea medication 10/17 Monitoring: - Appetite / PO intake - Wt changes - S/S Encouraged pt to reach out with any nutrition needs or concerns. Dagmar Pickard RDN, LD [phone] [employer]CH MICROBIOLOGIST documented in this encounter Plan of Treatment Not on file documented as of this encounter Visit Diagnoses Not on filedocumented in this encounter Care Teams Nursing Home Admissions Director Relationship Specialty Start Date End Date Matthew Mccabe MD [address] [place] [address] PCP - General Family Medicine 05/13/24 Stan Meza MD [address] [facility] IM MEDICAL ONCOLOGY, [address] [place] [address] Medical Oncologist/Kitchen Bath Designer Medical Oncology 06/28/24 documented as of this encounter
--- OUTSIDE RECORDS SUMMARY | 2024-10-30 07:02 | XMS_ITS | Clinical Summary ---
Author Organization [facility] Address [address] [place] [address] Care Team Providers Care Filenet Developer Name Role Phone Matthew Mccabe MD Primary Care Prov ider Stan Meza MD Unavailable [phone] Allergies Active Allergy Reactions Criticality Noted Date [...] (two) times a day 60 tablet 08/29/20 Active cefdinir (OMNICEF) 300 mg capsule TAKE [...] unit tablet Take 1 tablet by mouth service member before breakfast 30 tablet 3 09/25/20 Active morphine ER (MS CONTIN) 30 mg 12 hr tablet Take 1 tablet (30 mg total) by mouth every 12 (twelve) hours 60 tablet 09/25/20 24 Active oxyCODONE (ROXICODONE) 5 mg immediate release tabletIndicatio ns:Pain,cancer related pain Take 1-2 tablets (5-10 mg total) by mouth every 4 (four) hours as needed for pain 120 tablet 09/25/20 Active Active Problems Problem Noted Date Diagnosed Date Cancer related pain 08/15/2024 Prophylaxis for chemotherapy-induced neutropenia 08/01/2024 Primary cancer of left lower lobe of lung 2023 Cancer Staging:Clinical:Stage IVB(pM1c) - Unsigned Localized enlarged lymph nodes 05/28/2024 Hilar mass 05/28/2024 Encounters Date Type Department Care Team Description 10/29/2024 Social Work [facility] Oncology [address] [place] [address] 5 [place] [address] Carissa Long, SALES ACTIVITY MANAGER 10/29/2024 Telephone [facility] Oncology [address] [place] [phone] Kelly Montes, DEPARTMENT SPECIALIST 10/28/2024 Telephone [facility] Oncology [address] [place] [phone] Maddy Freire RN 10/25/2024 2:15 PM SAUSAGE STUFFER - 10/25/2024 11:59 PM SAUSAGE STUFFER Hospital Encounter [facility] [address] [place] [address] Diagnosis unknown Discharge Disposition: Discharge to home or self care 10/25/2024 Telephone [facility] Oncology [address] [place] [address] 5 [place] [address] Sasha Hernandes RN 10/24/2024 Telephone [facility] Nutrition Counseling 1 [place] [address] Dagmar Pickard, RD 10/24/2024 Documentation [facility] Oncology [address] [place] [address] Floor 8 [place] [address] Olimpia Parr, iMckie 10/18/2024 Documentation [facility] Oncology [address] [place] [address] 5 [place] [address] Sarah Brunner, SALES ACTIVITY MANAGER 10/17/2024 Telephone [facility] Nutrition Counseling 1 [place] [address] Dagmar Pickard, RD 10/17/2024 Orders Only [facility] Oncology [address] [place] [address] 5 [place] [address] Pool Hong [facility] 10/15/[address] [place] [address] Gayatri Garza, ALYX 10/14/2024 Social Work [facility] Oncology [facility] Floor 5 [place] [address] Sarah Brunner, SALES ACTIVITY MANAGER 10/10/2024 Telephone [facility] Outpatient Health - Palliative Care [address] [facility] [place] [address] Mariah Altamirano, ALYX 10/03/2024 8:30 AM SAUSAGE STUFFER Infusion [facility] - Infusion [address] [facility] Floor 5 [place] [address] 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) (Primary Dx) 10/03/2024 7:30 AM SAUSAGE STUFFER Lab [facility] - Lab Collection [facility] Floor 5 [place] [address] 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) 10/03/2024 Formerly [facility] [address] [facility] Advanced Medicine 11th [place] [address] [place] [address] Alexsandra Augustine, 09/30/2024 Social Work [facility] Oncology [facility] Floor 5 [place] [address] Sarah Brunner, SALES ACTIVITY MANAGER 09/25/2024 9:00 AM SAUSAGE STUFFER Infusion [facility] - Infusion [address] [facility] Floor 5 [place] [address] 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) (Primary Dx) 09/25/2024 8:00 AM SAUSAGE STUFFER Office Visit [facility] Oncology [facility] Floor 5 [place] [address] Stan Meza MD 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) (Primary Dx) 09/25/2024 7:00 AM SAUSAGE STUFFER Lab [facility] - Lab Collection [address] [facility] Floor 5 [place] [address] 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) 09/23/[address] [facility] Palliative Care [address] [place] [address] Gayatri Garza, ALYX 09/20/2024 Documentation [facility] Oncology [facility] Floor 5 [place] [address] Sarah Brunner, SALES ACTIVITY MANAGER 09/17/2024 11:19 AM SAUSAGE STUFFER - 09/17/2024 11:59 PM SAUSAGE STUFFER Hospital Encounter [facility] [address] [place] [address] Discharge Disposition: Discharge to home or self care 09/17/2024 Social Work [facility] Oncology [facility] Floor 5 [place] [address] Sarah Brunner, SALES ACTIVITY MANAGER 09/17/2024 Documentation [facility] Outpatient Health - Palliative Care [address] [place] [address] Mary Ellen Mckeon MD 09/16/2024 Orders Only [facility] Oncology [facility] Floor 5 [place] [address] Sasha Hernandes RN 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) (Primary Dx) 09/11/2024 Telephone [facility] Outpatient Health - Palliative Care [address] [place] [address] Mariah Altamirano, ALYX 09/10/2024 Telephone [facility] - Palliative Care [address] [place] [address] [place] [address] Mariah Altamirano, ALYX 09/09/2024 Telephone [facility] - Palliative Care [address] [place] [address] Mariah Altamirano, ALYX 09/06/2024 Telephone [facility] Oncology [address] [place] [address] Sasha Hernandes RN 09/05/2024 9:30 AM SAUSAGE STUFFER Infusion [facility] Infusion [address] [facility] Floor 5 [place] [address] 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) (Primary Dx) 09/05/2024 8:40 AM SAUSAGE STUFFER Office Visit [facility] Oncology [address] [place] [phone] Stan Meza MD 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) (Primary Dx) 09/05/2024 7:30 AM SAUSAGE STUFFER Lab [facility] Oncology Lab [address] [place] [address] 5 [place] [address] 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) 09/05/2024 7:15 AM SAUSAGE STUFFER Lab [facility] Collection [address] [place] [address] 5 [place] [address] 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) 09/04/2024 Social Work [facility] Oncology [address] [place] [phone] Sarah Brunner, SALES ACTIVITY MANAGER 09/02/2024 Social Work [facility] Oncology [address] [place] [phone] Sarah Brunner, SALES ACTIVITY MANAGER 08/30/2024 Documentation [facility] Oncology [address] [place] [address] Sasha Hernandes RN Prior Auth 08/29/2024 12:05 PM CDT - 08/29/2024 4:14 PM CDT Emergency [facility] Emergency Department 1 [place] [address] Olivia Manley MD Char, Douglas M., MD Atrial fibrillation, unspecified type (HCC) (Primary Dx); Malignant neoplasm of upper lobe of left lung (HCC); Left against medical advice Discharge Disposition: Left Against Medical Advice 08/29/2024 11:56 AM CDT - 08/29/2024 11:59 PM CDT Hospital Encounter [facility] [address] [place] [address] Emergency, Room R Discharge Disposition: Discharge to home or self care 08/29/2024 11:00 AM CDT Office Visit [facility] Oncology [address] [facility] Floor 5 [place] [address] Stan Meza MD 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) (Primary Dx) 08/29/2024 10:30 AM CDT Lab [facility] - Lab Collection [address] [facility] Floor 5 [place] [address] 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) 08/29/2024 Telephone [facility] [address] [facility] Advanced Medicine 1st [place] [address] Mary Ellen Galvez 08/26/2024 Social Work [facility] Oncology [facility] Floor 5 [place] [address] Sarah Brunner, LAURIE 08/26/2024 Telephone [facility] ([facility] - [facility] ENT [address] [facility] 11th [place] [address] [place] [address] Alexsandra Augustine, MS 08/26/2024 Telephone [facility] ([facility] - [facility] ENT [address] [facility] 11th [place] [address] [place] [address] Alexsandra Augustine, MS 08/23/2024 Social Work [facility] Oncology [facility] Floor 5 [place] [address] Sarah Brunner, LAURIE 08/23/2024 Telephone [facility] Outpatient Health - Palliative Care [address] [facility] [place] [address] Eliana Eldridge 08/23/2024 Telephone [facility] Oncology [address] [place] [address] Kaycee Jenkins RMA cough and hoarseness 08/22/2024 12:00 PM CDT Infusion [facility] - Infusion [address] [facility] Floor 5 [place] [address] 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) (Primary Dx) 08/22/2024 11:15 AM CDT Lab [facility] - Lab Collection [address] [facility] Floor 5 [place] [address] 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) 08/22/2024 11:00 AM CDT Office Visit [facility] Oncology [facility] Floor 5 [place] [address] Stan Meza MD 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) (Primary Dx); Voice hoarseness 08/22/2024 10:00 AM CDT Lab [facility] Oncology Lab [facility] Floor 5 [place] [address] 08/22/2024 Documentation [facility] Nutrition Counseling 1 [place] [address] Dagmar Pickard, RD 08/20/2024 Documentation [facility]ing 1 [place] [address] Joann Olivares, RD 08/19/2024 Orders Only RAD ONC TREATMENTS Miscellaneous, Not In File 08/19/2024 Completion of Therapy [facility] Radiation Oncology [address] [place] [address] Jeffrey Ham MD 08/16/2024 11:15 AM CDT - 08/16/2024 11:59 PM CDT Hospital Encounter [facility] Radiation Oncology [address] [place] [address] Jeffrey Ham MD Discharge Disposition: Discharge to home or self care 08/16/2024 Documentation [facility] Radiation Oncology [address] [place] [address] Delmi Saxena LCSW 08/16/2024 Orders Only RAD ONC TREATMENTS Miscellaneous, Not In File 08/16/2024 Telephone [facility] Oncology [address] [place] [phone] Kaycee Jenkins RMA 08/15/2024 8:50 AM CDT - 08/15/2024 11:59 PM CDT Hospital Encounter [facility] Radiation Oncology [facility] [place] [address] Jeffrey Ham MD Discharge Disposition: Discharge to home or self care 08/15/2024 8:00 AM CDT Office Visit [facility] Oncology [facility] Floor 5 [place] [address] Stan Meza MD 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) (Primary Dx); Prophylaxis for chemotherapy-ashley kristine neutropenia 08/15/2024 6:45 AM CDT Lab [facility] - Lab Collection [facility] Floor 5 [place] [address] Prophylaxis for chemotherapy-ashley kristine neutropenia; 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) 08/15/2024 Documentation [facility] Oncology [address] [place] [address] 5 [place] [address] Sarah Brunner LCSW 08/15/2024 Orders Only RAD ONC TREATMENTS Miscellaneous, Not In File 08/14/2024 9:06 AM CDT - 08/14/2024 11:59 PM CDT Hospital Encounter [facility] Radiation Oncology [address] [place] [address] Jeffrey Ham MD Discharge Disposition: Discharge to home or self care 08/14/2024 Orders Only RAD ONC TREATMENTS Miscellaneous, Not In File 08/13/2024 8:19 AM CDT - 08/13/2024 11:59 PM CDT Hospital Encounter [facility] Radiation Oncology [address] [place] [address] Jeffrey Ham MD Discharge Disposition: Discharge to home or self care 08/13/2024 Orders Only RAD ONC TREATMENTS Miscellaneous, Not In File 08/12/2024 8:00 PM CDT - 08/12/2024 11:59 PM CDT Hospital Encounter [facility] Radiation Oncology [address] [place] [address] Jeffrey Ham MD Discharge Disposition: Discharge to home or self care 08/12/2024 3:06 PM CDT - 08/12/2024 11:59 PM CDT Hospital Encounter [facility] Radiation Oncology [address] [place] [address] Jeffrey Ham MD Discharge Disposition: Discharge to home or self care 08/12/2024 OTV [facility] Radiation Oncology [address] [place] [address] Jeffrey Ham MD 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) (Primary Dx) 08/12/2024 Orders Only RAD ONC TREATMENTS Miscellaneous, Not In File 08/12/2024 Telephone [facility] Nutrition Counseling 1 [place] [address] John Wilson, LARRY 08/12/2024 Documentation [facility] Radiation Oncology [address] [place] [address] Anne Marie Harmon LCSW 08/09/2024 7:53 AM CDT - 08/09/2024 11:59 PM CDT Hospital Encounter [facility] Radiation Oncology [address] [place] [address] Jeffrey Ham MD Discharge Disposition: Discharge to home or self care 08/06/2024 Telephone [facility] Nutrition Counseling 1 [place] [address] Gladis Evans, LARRY 08/06/2024 Telephone [facility] Oncology [address] [place] [address] Angelika Curran, WAQRA 08/02/2024 Documentation [facility] Radiation Oncology [address] [place] [address] Anne Marie Harmon, SALES ACTIVITY MANAGER 08/01/2024 10:00 AM CDT Consult [facility] Radiation Oncology [address] [place] [address] Jeffrey Ham MD 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) (Primary Dx); 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) 08/01/2024 9:20 AM CDT Office Visit [facility] Oncology [address] [facility] Floor 5 [place] [address] Stan Meza MD Prophylaxis for chemotherapy-ashley kristine neutropenia (Primary Dx); 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) 08/01/2024 8:15 AM CDT Lab [facility] - Lab Collection [address] [facility] Floor 5 [place] [address] 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) 07/31/2024 1:24 PM CDT - 07/31/2024 11:59 PM CDT Hospital Encounter [facility] - PET [address] Floor 8 [place] [address] Discharge Disposition: Discharge to home or self care 07/31/2024 1:24 PM CDT - 07/31/2024 11:59 PM CDT Hospital Encounter [facility] - PET [address] Floor 8 [place] [address] 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) Discharge Disposition: Discharge to home or self care 07/31/2024 12:00 PM CDT - 07/31/2024 11:59 PM CDT Hospital Encounter [facility] [place] - MRI [address] Floor [address] [place] [address] 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) Discharge Disposition: Discharge to home or self care 07/31/2024 Telephone [facility] Oncology [address] [facility] Floor 5 [place] [address] Sasha Hernandes RN from Last 3 Months Immunizations Name Administration Dates Next Due Influenza, Quadrivalent, Hig h Dose, Preservative Free, Intrr 08/23/2024 Influenza, Quadrivalent, Rec ombinant, Egg Free, Preservative Free, Intramuscular 07/29/2022,07/26/2021 Influenza, Quadrivalent, Spl it, Intramuscular 07/17/2017,09/29/2016 Influenza, Quadrivalent, Spl it, Preservative Free, Intramuscular 09/29/2023,08/04/2020,07/11/2019,08/09,11/02/2015 Influenza, Unspecified 08/13/2020 [employer] ([employer]) SARS-CoV-2 Vaccination 01/17/2021 Pneumococcal Conjugate Pcv20 07/29/2022 Pneumococcal Polysaccharide PPV23 07/11/2019 Tdap 09/29/2023,07/17/2017 Surgical History Surgery Date Site/Laterality Comments FLUORO GUIDED ASPIRATION OR INJECTION LARGE JOINT BILATERAL 10/14/2020 Bilateral FLUORO GUIDED ASPIRATION OR INJECTION LARGE JOINT BILATERAL 06/26/2019 Bilateral FLUORO GUIDED ASPIRATION OR INJECTION LARGE JOINT BILATERAL 06/26/2019 Bilateral REPLACEMENT TOTAL KNEE Left BRONCHOSCOPY 06/19/2024 Left w/ lymph node biopsy Medical History Medical History Date Comments Arthritis Asthma CHF (congestive heart failur e) ([facility]/HCC) (HCC) COPD (chronic obstructive pu lmonary disease) (HCC) Coronary artery disease Hypertension Sleep apnea Lung cancer (HCC) left lower lob e 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, lymph nodes, bone Depression Hypercholesteremia PVD (peripheral vascular disease) (HCC) Vocal cord paralysis BPH (benign prostatic hyperplasia) Glaucoma Family History Medical History Relation Name Comments Cancer Brother Heart disease Father Heart failure Father Diabetes Maternal Grandmother Stroke Maternal Grandmother Cancer Mother Thyroid disease Mother Asthma Sister Relation Name Status Comments Brother Father Maternal Grandmother Mother Sister Social History Tobacco Use Types Packs/Day Years [...] on file Legal Sex Male 6:04 PM SAUSAGE STUFFER Gender Identity Not on file Sexual Orientation Not on file Obstetrics History Last Filed Vital Signs Vital Sign Reading Time Taken Comments Blood Pressure 106/72 10/03/2024 8:17 AM SAUSAGE STUFFER Pulse 80 10/03/2024 8:17 AM SAUSAGE STUFFER Temperature 36.5 ??C (97.7 ??F) 10/03/2024 8:17 AM CS T Respiratory Rate 18 10/03/2024 8:17 AM SAUSAGE STUFFER Oxygen Saturation 98% 10/03/2024 8:17 AM SAUSAGE STUFFER Inhaled Oxygen Concentration - - Weight 91 kg (200 lb 9.9 oz) 10/03/2024 8:17 AM SAUSAGE STUFFER Height 167.6 cm (5' 6 ) 08/29/2024 12:07 PM CDT Body Mass Index 32.38 08/29/2024 12:07 PM CDT Plan of Treatment Health Maintenance Due Date Last Done Comments Colon Cancer Screening-Colonoscopy 1961 Depression Screening 1961 Hepatitis C Screening 1961 Prostate Cancer Screening-PSA 1961 Hepatitis B Screening 1979 Regular Well Visit/Exam 18-64 1979 Zoster Vaccine (1 of 2) 1980 Covid-19 Vaccine ( - 2023-2 5 season) 2024 09/29/2023, 09/14/2021, 01/17/2021, Additional history exists DTaP/Tdap/Td Vaccine (3 - Td or Tdap) 09/29/2033 09/29/2023, 07/17/2017 Pneumococcal vaccine <65 Completed 07/29/2022, 06/30 Influenza Vaccine Completed 08/23/2024, , 07/29/2022, Additional history exists Procedures Procedure Name Priority Date/Time Associated Diagnosis Comments CT BODY OUTSIDE CONSULT Routine 10/25/2024 2:15 PM SAUSAGE STUFFER Diagnosis unknown DIFFERENTIAL AUTO Routine 10/03/2024 7:3 4 AM SAUSAGE STUFFER 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) CBC WITH AUTO DIFFERENTIAL Routine 10/03/2024 7:34 AM SAUSAGE STUFFER 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) EGFR STAT 09/25/2024 7:43 AM SAUSAGE STUFFER 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) DIFFERENTIAL AUTO STAT 09/25/2024 7:4 3 AM SAUSAGE STUFFER 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) CBC WITH AUTO DIFFERENTIAL STAT 09/25/2024 7:43 AM SAUSAGE STUFFER 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) COMPREHENSIVE METABOLIC PANEL STAT 09/25/2024 7:43 AM SAUSAGE STUFFER 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) CT BODY OUTSIDE REFERENCE Routine 09/17/2024 11:19 AM SAUSAGE STUFFER DIFFERENTIAL AUTO Routine 09/05/2024 8:0 3 AM SAUSAGE STUFFER 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) CBC WITH AUTO DIFFERENTIAL Routine 09/05/2024 8:03 AM SAUSAGE STUFFER 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) EGFR STAT 09/05/2024 7:51 AM SAUSAGE STUFFER 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) COMPREHENSIVE METABOLIC PANEL STAT 09/05/2024 7:51 AM SAUSAGE STUFFER 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) TROPONIN I HIGH-SENSITIVITY 2-HOUR Timed 08/29/2024 2:23 PM CDT URINALYSIS AND REFLEX TO MICROSCOPIC AND CULTURE STAT 08/29/2024 2:23 PM CDT [facility]INJURED PATIENT INIT 30-74 MIN [...] CT Body Outside Consult (10/25/2024 2:15 PM SAUSAGE STUFFER) Anatomical Region Laterality Modality Body N/A Computed Tomogra phy 10/27/2024 7:03 PM SAUSAGE STUFFER Impressions 10/27/2024 7:03 PM SAUSAGE STUFFER 1. ??Marked response to therapy in the [...] images may or may not represent the [place] source data set and thus may contain changes that may lower the accuracy of this second-opinion interpretation. Electronically signed by: Wally Garg M.D. Narrative 10/27/2024 7:03 PM SAUSAGE STUFFER EXAMINATION: RADIOLOGY CONSULTATION ON OUTSIDE IMAGING STUDY STUDY INITIALLY PERFORMED: 10/23/2024 at [facility]. TYPE OF STUDY: Multiple CT images of [...] IMAGING STUDY STUDY INITIALLY PERFORMED: 10/23/2024 at [facility]. TYPE OF STUDY: Multiple CT images of [...] images may or may not represent the [place] source data set and thus may contain changes that may lower the accuracy of this second-opinion interpretation. Electronically signed by: Wally Garg M.D. Stan Meza MD IMG CT PROCEDURES Final R esult * Differential, auto (10/03/2024 7:34 AM SAUSAGE STUFFER) Neutrophil abs 2.5 1.5 - 6.5 K/cumm Comment:Testing performed by : [facility], [address] [place], [place] [id number] Lymphocyte abs 0.8 0.8 - 3.3 K/cumm [facility] Comment:Testing performed by : [facility], [address] [place] [address] Monocyte abs 0.4 0.2 - 0.8 K/cumm [facility] Comment:Testing performed by : [facility]e [facility], [address] [place] [address] Eosinophil abs 0.1 0.0 - 0.5 K/cumm [facility] Comment:Testing performed by : [facility], [address] [place], [place] [id number] Basophil abs 0.0 0.0 - 0.1 K/cumm [facility] Comment:Testing performed by : [facility], [address] [place] [phone] Neutrophil pct 65.4 % [facility] Comment: Interpretive Data Percent cell count reference ranges are not reported, since discordance with absolute values may lead to misinterpretation of CBC data. Current Interpretive Data was last revised on 2018. Testing performed by: [facility], [address] [place] [phone] Lymphocyte pct 21.8 % [facility] Comment: Interpretive Data Percent cell count reference ranges are not reported, since discordance with absolute values may lead to misinterpretation of CBC data. Current Interpretive Data was last revised on 2018. Testing performed by: [facility], [address] [place] [phone] Monocyte pct 10.8 % CHEMA RESENDIZ Comment: Interpretive Data Percent cell count reference ranges are not reported, since discordance with absolute values may lead to misinterpretation of CBC data. Current Interpretive Data was last revised on 2018. Testing performed by: [facility], [address] [place] [phone] Eosinophil pct 1.8 % CHEMA RESENDIZ Comment: Interpretive Data Percent cell count reference ranges are not reported, since discordance with absolute values may lead to misinterpretation of CBC data. Current Interpretive Data was last revised on 2018. Testing performed by: [facility], [address] [place], [place] [id number] Basophil pct 0.2 % CHEMA RESENDIZ Comment: Interpretive Data Percent cell count reference ranges are not reported, since discordance with absolute values may lead to misinterpretation of CBC data. Current Interpretive Data was last revised on 2018. Testing performed by: [facility], [address] [place] [phone] Blood 10/03/2024 7:34 AM SAUSAGE STUFFER 10/03/2024 7:37 AM SAUSAGE STUFFER us Stan Meza MD LAB BLOOD ORDERABLES Yolette l Result [facility] Department [place] [address] * (ABNORMAL) CBC with auto differential (10/03/2024 7:34 AM SAUSAGE STUFFER) WBC 3.8 3.8 - 9.9 K/cumm Comment:Testing performed by : [facility], [address] [place] [phone] Hgb 9.0(L) 13.0 - 17.5 g/dL CHEMA RESENDIZ Comment:Testing performed by : [facility], [address] [place] [address] Hct 27.9(L) 38.9 - 50.3 % CERNER BJ Comment:Testing performed by : [facility], [address] [place], [place] [id number] Plt 252 150 - 400 K/cumm CERALDO BJ Comment:Testing performed by : [facility], [address] [place], [place] [id number] MPV 6.8 6.8 - 10.4 fL CERALDO BJ Comment:Testing performed by : [facility], [address] [place], [place] [id number] RBC 3.40(L) 4.30 - 5.80 M/cumm CERALDO BJ Comment:Testing performed by : [facility], [address] [place], [place] [id number] MCV 82.0 81.3 - 96.4 fL CERALDO BJ Comment:Testing performed by : [facility], [address] [place], [place] [id number] MCH 26.6(L) 27.1 - 33.3 pg CERNER BJ Comment:Testing performed by : [facility], [address] [place], [place] [id number] MCHC 32.4 32.3 - 35.7 g/dL CERNER BJ Comment:Testing performed by : [facility], [address] [place], [place] [id number] RDW CV 17.7(H) 11.1 - 14.9 % CERALDO BJ Comment:Testing performed by : [facility], [address] [place], [place] [phone] NRBC abs 0.00 0.00 - 0.01 K/cumm CERALDO BJ Comment:Testing performed by : [facility], [address] [place], [place] [id number] Blood 10/03/2024 7:34 AM SAUSAGE STUFFER 10/03/2024 7:37 AM SAUSAGE STUFFER us Stan Meza MD LAB BLOOD ORDERABLES Yolette banda Result [facility]ERALDO [facility] Department [place] [address] * eGFR (09/25/2024 7:43 AM SAUSAGE STUFFER) [facility] [address] eGFR >90 >=60 mL/min/1. 73 m2 Comment: [...] last reviewed 2021. Blood 09/25/2024 7:43 AM SAUSAGE STUFFER 09/25/2024 7:51 AM SAUSAGE STUFFER us Stan Meza MD LAB BLOOD ORDERABLES Yolette banda Result CHEMA [facility] Department [place] [address] * (ABNORMAL) Differential, auto (09/25/2024 7:43 AM SAUSAGE STUFFER) [facility] [address] Neutrophil abs 4.1 1.5 - 6.5 K/cumm Comment:Testing performed by : [facility], [address] [place] [phone] Lymphocyte abs 0.8 0.8 - 3.3 K/cumm [facility] Comment:Testing performed by : [facility], [address] [place] [phone] Monocyte abs 0.9(H) 0.2 - 0.8 K/cumm [facility] Comment:Testing performed by : [facility], [address] [place], [place] [id number] Eosinophil abs 0.1 0.0 - 0.5 K/cumm [facility] Comment:Testing performed by : [facility], [address] [place], [place] [id number] Basophil abs 0.1 0.0 - 0.1 K/cumm [facility] Comment:Testing performed by : [facility], [address] [place], [place] [id number] Neutrophil pct 69.0 % [facility] Comment: Interpretive Data Percent cell count reference ranges are not reported, since discordance with absolute values may lead to misinterpretation of CBC data. Current Interpretive Data was last revised on 2018. Testing performed by: [facility], [address] [place] [phone] Lymphocyte pct 13.4 % [facility] Comment: Interpretive Data Percent cell count reference ranges are not reported, since discordance with absolute values may lead to misinterpretation of CBC data. Current Interpretive Data was last revised on 2018. Testing performed by: [facility], [address] [place] [phone] Monocyte pct 15.3 % [facility] Comment: Interpretive Data Percent cell count reference ranges are not reported, since discordance with absolute values may lead to misinterpretation of CBC data. Current Interpretive Data was last revised on 2018. Testing performed by: [facility], [address] [place] [phone] Eosinophil pct 1.3 % [facility] Comment: Interpretive Data Percent cell count reference ranges are not reported, since discordance with absolute values may lead to misinterpretation of CBC data. Current Interpretive Data was last revised on 2018. Testing performed by: [facility], [address] [place] [address] Basophil pct 1.0 % CERALDO BJ Comment: Interpretive Data Percent cell count reference ranges are not reported, since discordance with absolute values may lead to misinterpretation of CBC data. Current Interpretive Data was last revised on 2018. Testing performed by: [facility], [address] [place] [address] Blood 09/25/2024 7:43 AM SAUSAGE STUFFER 09/25/2024 7:48 AM SAUSAGE STUFFER us Stan Meza MD LAB BLOOD ORDERABLES Yolette l Result [facility] Department [place] [address] * (ABNORMAL) CBC with auto differential (09/25/2024 7:43 AM SAUSAGE STUFFER) WBC 5.9 3.8 - 9.9 K/cumm Comment:Testing performed by : [facility], [address] [place] [address] Hgb 9.7(L) 13.0 - 17.5 g/dL CERALDO BJ Comment:Testing performed by : [facility], [address] [place] [address] Hct 30.5(L) 38.9 - 50.3 % CERALDO BJ Comment:Testing performed by : [facility], [address] [place] [address] Plt 350 150 - 400 K/cumm CERALDO BJ Comment:Testing performed by : [facility], [address] [place] [address] MPV 6.5(L) 6.8 - 10.4 fL CERALDO [facility] Comment:Testing performed by : [facility], [address] [place] [address] RBC 3.72(L) 4.30 - 5.80 M/cumm [facility] Comment:Testing performed by : [facility], [address] [place] [address] MCV 82.1 81.3 - 96.4 fL CHEMA RESENDIZ Comment:Testing performed by : [facility], [address] [place] [address] MCH 26.1(L) 27.1 - 33.[address] [facility] Comment:Testing performed by : [facility], [address] [place] [address] MCHC 31.8(L) 32.3 - 35.7 g/dL [facility] Comment:Testing performed by : [facility], [address] [place] [address] RDW CV 17.1(H) 11.1 - 14.9 % [facility] Comment:Testing performed by : [facility], [address] [place] [address] NRBC abs 0.00 0.00 - 0.01 K/cumm [facility] Comment:Testing performed by : [facility], [address] [place] [address] Blood 09/25/2024 7:43 AM SAUSAGE STUFFER 09/25/2024 7:48 AM SAUSAGE STUFFER us Stan Meza MD LAB BLOOD ORDERABLES Yolette l Result [facility] Department [place] [address] * (ABNORMAL) Comprehensive metabolic panel (09/25/2024 7:43 AM SAUSAGE STUFFER) Sodium 135 135 - 145 mmol/L Potassium, pl 4.2 3.3 - 4.9 mmol/L [facility] Chloride 98 97 - 110 mmol/L [facility] CO2 30 22 - 32 mmol/L [facility] Anion gap 7 2 - 15 mmol/L [facility] BUN 5(L) 6 - 25 mg/dL [facility] Creatinine 0.73(L) 0.80 - 1.30 mg/dL [facility] Glucose 99 70 - 199 mg/dL [facility] Comment: Interpretive Data Fasting glucose [...] 2022. Calcium 9.3 8.5 - 10.3 mg/dL [facility] Bilirubin, total 0.2 0.1 - 1.2 mg/dL [facility] Protein, pl 6.6 6.5 - 8.5 g/dL [facility] Albumin 3.3(L) 3.5 - 5.0 g/dL [facility] Alk phos 172(H) 40 - 130 Units/L [facility] ALT 18 7 - 55 Units/L [facility] AST 17 10 - 50 Units/L [facility] Blood 09/25/2024 7:43 AM SAUSAGE STUFFER 09/25/2024 7:51 AM SAUSAGE STUFFER us Stan Meza MD LAB BLOOD ORDERABLES Yolette l Result [facility] Department [place] [address] * CT Body Outside Reference (09/17/2024 11:19 AM SAUSAGE STUFFER) Impressions RAD_PACS_BJ - 09/17/2024 11:19 AM SAUSAGE STUFFER These images are for Reference purposes only and have not been reviewed by [facility] Radiology. ??There will be no report generated by a [facility] Radiologist. Narrative RAD_PACS_BJ - 09/17/2024 11:19 AM SAUSAGE STUFFER EXAMINATION: ??Images For Reference Purposes Only us Stan Meza MD IMG CT PROCEDURES Final R esult [facility] * (ABNORMAL) Differential, auto (09/05/2024 8:03 AM SAUSAGE STUFFER) Neutrophil abs 1.6 1.5 - 6.5 K/cumm Comment:Testing performed by : [facility], [address] [place], [place] [id number] Lymphocyte abs 0.4(L) 0.8 - 3.3 K/cumm [facility] Comment:Testing performed by : [facility], [address] [place], [place] [id number] Monocyte abs 0.4 0.2 - 0.8 K/cumm [facility] Comment:Testing performed by : [facility], [address] [place], [place] [id number] Eosinophil abs 0.0 0.0 - 0.5 K/cumm [facility] Comment:Testing performed by : [facility], [address] [place] [phone] Basophil abs 0.0 0.0 - 0.1 K/cumm [facility] Comment:Testing performed by : [facility], [address] [place], [place] [id number] Neutrophil pct 65.0 % [facility] Comment: Interpretive Data Percent cell count reference ranges are not reported, since discordance with absolute values may lead to misinterpretation of CBC data. Current Interpretive Data was last revised on 2018. Testing performed by: [facility], [address] [place] [phone] Lymphocyte pct 16.1 % [facility] Comment: Interpretive Data Percent cell count reference ranges are not reported, since discordance with absolute values may lead to misinterpretation of CBC data. Current Interpretive Data was last revised on 2018. Testing performed by: [facility], [address] [place] [phone] Monocyte pct 17.4 % CHEMA RESENDIZ Comment: Interpretive Data Percent cell count reference ranges are not reported, since discordance with absolute values may lead to misinterpretation of CBC data. Current Interpretive Data was last revised on 2018. Testing performed by: [facility], [address] [place] [phone] Eosinophil pct 0.6 % CHEMA RESENDIZ Comment: Interpretive Data Percent cell count reference ranges are not reported, since discordance with absolute values may lead to misinterpretation of CBC data. Current Interpretive Data was last revised on 2018. Testing performed by: [facility], [address] [place] [phone] Basophil pct 0.9 % CHEMA RESENDIZ Comment: Interpretive Data Percent cell count reference ranges are not reported, since discordance with absolute values may lead to misinterpretation of CBC data. Current Interpretive Data was last revised on 2018. Testing performed by: [facility], [address] [place] [phone] Blood 09/05/2024 8:03 AM SAUSAGE STUFFER 09/05/2024 8:04 AM SAUSAGE STUFFER us Stan Meza MD LAB BLOOD ORDERABLES Yolette veronika Result CHEMA RESENDIZ [facility] Department [place] [address] * (ABNORMAL) CBC with auto differential (09/05/2024 8:03 AM SAUSAGE STUFFER) WBC 2.5(L) 3.8 - 9.9 K/cumm Comment:Testing performed by : [facility], [address] [place] [phone] Hgb 10.8(L) 13.0 - 17.5 g/dL CHEMA RESENDIZ Comment:Testing performed by : [facility], [address] [place] [phone] Hct 33.7(L) 38.9 - 50.3 % CHEMA RESENDIZ Comment:Testing performed by : [facility], [address] [place], [place] [phone] Plt 103(L) 150 - 400 K/cumm CERALDO BJ Comment:Testing performed by : [facility], [address] [place], [place] [phone] MPV 7.1 6.8 - 10.4 fL CERALDO [facility]J Comment:Testing performed by : [facility], [address] [place], [place] [phone] RBC 4.04(L) 4.30 - 5.80 M/cumm CERALDO BJ Comment:Testing performed by : [facility], [address] [place], [place] [phone] MCV 83.5 81.3 - 96.4 fL CERALDO [facility]J Comment:Testing performed by : [facility], [address] [place], [place] [phone] MCH 26.7(L) 27.1 - 33.[address] [facility] Comment:Testing performed by : [facility], [address] [place] [address] MCHC 32.0(L) 32.3 - 35.7 g/dL CERNER [facility]J Comment:Testing performed by : [facility], [address] [place] [address] RDW CV 15.3(H) 11.1 - 14.9 % [facility]ERALDO [facility] Comment:Testing performed by : [facility], [address] [place] [address] NRBC abs 0.00 0.00 - 0.01 K/cumm [facility]ERALDO [facility] Comment:Testing performed by : [facility], [address] [place] [address] Blood 09/05/2024 8:03 AM SAUSAGE STUFFER 09/05/2024 8:04 AM SAUSAGE STUFFER us Stan Meza MD LAB BLOOD ORDERABLES Yolette l Result [facility] Department [place] [address] * eGFR (09/05/2024 7:51 AM SAUSAGE STUFFER) eGFR >90 >=60 mL/min/1. 73 m2 Comment: [...] last reviewed 2021. Blood 09/05/2024 7:51 AM SAUSAGE STUFFER 09/05/2024 8:15 AM SAUSAGE STUFFER us Stan Meza MD LAB BLOOD ORDERABLES Yolette banda Result CHEMA RESENDIZ [facility] Department [place] [address] * (ABNORMAL) Comprehensive metabolic panel (09/05/2024 7:51 AM SAUSAGE STUFFER) Pathologist [facility] [place] Sodium 135 135 - 145 mmol/L Potassium, pl 3.8 3.3 - 4.9 mmol/L [facility] Chloride 98 97 - 110 mmol/L [facility] CO2 29 22 - 32 mmol/L [facility] Anion gap 8 2 - 15 mmol/L [facility] BUN 5(L) 6 - 25 mg/dL [facility] Creatinine 0.72(L) 0.80 - 1.30 mg/dL [facility] Glucose 99 70 - 199 mg/dL [facility] Comment: Interpretive Data Fasting glucose [...] 2022. Calcium 8.9 8.5 - 10.3 mg/dL [facility] Bilirubin, total 0.3 0.1 - 1.2 mg/dL [facility] Protein, pl 6.9 6.5 - 8.5 g/dL [facility] Albumin 3.4(L) 3.5 - 5.0 g/dL [facility] Alk phos 160(H) 40 - 130 Units/L [facility] ALT 24 7 - 55 Units/L [facility] AST 21 10 - 50 Units/L [facility] Blood 09/05/2024 7:51 AM SAUSAGE STUFFER 09/05/2024 8:15 AM SAUSAGE STUFFER us Stan Meza MD LAB BLOOD ORDERABLES Yolette l Result [facility] Department [place] [address] * (ABNORMAL) Troponin I high-sensitivity 2-hour (08/29/2024 2:23 PM CDT) Trop I hs 37(H) <=35 ng/L Comment: Interpretive Data For further hscTnI resources including the diagnostic algorithm and an aid in interpretation, copy and paste this link: [email or web address].testcatalog.org/show/[email or web address] Current Interpretive Data last revised 2020. Trop I hs delta 4 ng/L [facility] Trop I hs interp Insignificant [facility] Blood 08/29/2024 2:23 PM CDT 08/29/2024 2:50 PM CDT us Manjit Espinoza MD LAB BLOOD ORDERABLES Final Result [facility] Department [place] [address] * Urinalysis reflex to microscopic and culture Urine (08/29/2024 2:23 PM CDT) Color, ur Straw Yellow Clarity, ur Clear Clear [facility] Specific gravity, ur 1.009 1.003 - 1.030 [facility] pH, urine 6.0 [facility] Comment: Interpretive Data ? Urine pH is affected by diet, medications, systemic acid-base disturbances, and renal tubular function. ??pH may affect urinary stone formation. ??For example, urine pH below 6.0 may help reduce the tendency for calcium phosphate stones and pH greater than 6.0 may reduce the tendency for uric acid stone formation. Source: [facility] [employer] Current Interpretive Data was last revised on 2017 Protein, ur ql Negative Negative [facility] Glucose, ur ql Negative Negative [facility] Ketones, ur Negative Negative [facility] Bilirubin, ur Negative Negative [facility] Blood, ur Negative Negative [facility] Urobilinogen, ur <2.0 <2.0 mg/dL [facility] Nitrite, ur Negative Negative [facility] Leukocyte esterase, ur Negative Negative [facility] UA reflex comment Reflex conditions for microscopic UA and culture not met. [facility] Urine 08/29/2024 2:23 PM CDT 08/29/2024 2:43 PM CDT us Manjit Espinoza MD LAB MICROBIOLOGY - GENERAL ORDERABLES Final Result [facility] Department [place] [address] * [facility] ILL/INJURED PATIENT INIT 30-74 MIN [...] obtained for tachycardia Olivia Manley MD 08/29/24 [id number] us Manjit Espinoza MD ECG ORDERABLES Final [...] 2hr, 4hr, 6hr) (08/29/2024 12:27 PM CDT) Trop I hs 33 <=35 ng/L Comment: Interpretive Data For further [facility] resources including the diagnostic algorithm and an aid in interpretation, copy and paste this link: [email or web address].testcatalog.org/[email or web address] Current Interpretive Data last revised 2020. Blood 08/29/2024 12:2 7 PM CDT 08/29/2024 12:43 PM CDT Manjit Espinoza MD LAB BLOOD ORDERABLES Final Result Performing Organization Address City/[facility] Co de Phone Number CHEMA [facility] Department [place] [address] * Sepsis Lactate w/ Reflex (08/29/2024 12:27 PM CDT) Pathologist [facility] [place] Sepsis Lactate 1.9 0.7 - 2.0 mmol/L Blood 08/29/2024 12:2 7 PM CDT 08/29/2024 12:39 PM CDT us Manjit Espinoza MD LAB BLOOD ORDERABLES Final Result Performing Organization Address [facility] [place]/[facility] Co de Phone Number [facility] Department [place] [employer] [place] [address] * eGFR (08/29/2024 12:27 PM CDT) eGFR 81 >=60 mL/min/1. 73 m2 Comment: [...] Espinoza MD LAB BLOOD ORDERABLES Final Result [facility] Department [place] [address] * (ABNORMAL) Differential, auto (08/29/2024 12:27 PM CDT) Neutrophil abs 3.7 1.5 - 6.5 K/cumm Imm gran abs 0.1 0.0 - 0.1 K/cumm [facility] Lymphocyte abs 0.4(L) 0.8 - 3.3 K/cumm [facility] Monocyte abs 0.2 0.2 - 0.8 K/cumm [facility] Eosinophil abs 0.1 0.0 - 0.5 K/cumm [facility] Basophil abs 0.0 0.0 - 0.1 K/cumm [facility] Neutrophil pct 84.2 % [facility] Comment: Interpretive Data Percent cell count reference ranges are not reported, since discordance with absolute values may lead to misinterpretation of CBC data. Current Interpretive Data was last revised on 2018. Imm gran pct 1.1 % [facility] Comment: Interpretive Data Percent cell count reference ranges are not reported, since discordance with absolute values may lead to misinterpretation of CBC data. Current Interpretive Data was last revised on 2018. Lymphocyte pct 9.0 % [facility] Comment: Interpretive Data Percent cell count reference ranges are not reported, since discordance with absolute values may lead to misinterpretation of CBC data. Current Interpretive Data was last revised on 2018. [facility]ocyte pct 4.4 % [facility] Comment: Interpretive Data Percent cell count reference ranges are not reported, since discordance with absolute values may lead to misinterpretation of CBC data. Current Interpretive Data was last revised on 2018. Eosinophil pct 1.1 % [facility] Comment: Interpretive Data Percent cell count reference ranges are not reported, since discordance with absolute values may lead to misinterpretation of CBC data. Current Interpretive Data was last revised on 2018. Basophil pct 0.2 % [facility] Comment: Interpretive Data Percent cell count reference ranges are not reported, since discordance with absolute values may lead to misinterpretation of CBC data. Current Interpretive Data was last revised on 2018. Blood 08/29/2024 12:2 7 PM CDT 08/29/2024 12:43 PM CDT Manjit Espinoza MD LAB BLOOD ORDERABLES Final Result Performing Organization Address City/[facility]/ZIP Co de Phone Number [facility] Department [place] [employer] [place] [address] * Thyroid Function Avery (08/29/2024 12:27 PM CDT) Pathologist [facility] [place] TSH 1.00 0.30 - 4.20 mcIUnit/mL Blood 08/29/2024 12:2 7 PM CDT 08/29/2024 12:43 PM CDT Manjit Espinoza MD LAB BLOOD ORDERABLES Final Result Performing Organization Address City/[facility]/ZIP Co de Phone Number [facility] [place] [employer] [place] [address] * Respiratory pathogen panel Nasopharyngeal (08/29/2024 12:27 PM CDT) Pathologist [facility] [place] Influenza A RNA Not Detected Not Detected Influenza B RNA Not Detected Not Detected [facility] RSV RNA Not Detected Not Detected [facility] COVID-19 RNA Not Detected Not Detected [facility] Coronavirus 229E RNA Not Detected Not Detected [facility] Coronavirus HKU1 RNA Not Detected Not Detected [facility] Coronavirus NL63 RNA Not Detected Not Detected [facility] Coronavirus OC43 RNA Not Detected Not Detected [facility] Adenovirus DNA Not Detected Not Detected [facility] Metapneumovirus RNA Not Detected Not Detected [facility] Rhinovirus/Enterov irus RNA Not Detected Not Detected [facility] Parainfluenza 1 RNA Not Detected Not Detected [facility] Parainfluenza 2 RNA Not Detected Not Detected [facility] Parainfluenza 3 RNA Not Detected Not Detected [facility] Parainfluenza 4 RNA Not Detected Not Detected [facility] B. pertussis DNA Not Detected Not Detected [facility] B. parapertussis DNA Not Detected Not Detected [facility] C. pneumoniae DNA Not Detected Not Detected [facility] M. pneumoniae DNA Not Detected Not Detected [facility] Nasopharyngeal 08/29/2024 12 :27 PM CDT 08/29/2024 12:46 PM CDT Narrative [facility] - 08/29/2024 1:58 PM CDT Is the Patient experiencing symptoms consistent with COVID?->Yes Surveillance testing for transplant patient?->No ??Interpretive Data [employer] Film[employer] Respiratory Panel (RP2.1) assay is a [...] assay has FDA clearance for testing of BIRD KEEPER swabs. ??The performance of additional specimen types has been assessed by the performing laboratory. ??The performance characteristics of this assay have been determined by [facility] Molecular Infectious Disease Laboratory. Current interpretive data was last revised on 22. us Manjit Espinoza MD LAB MICROBIOLOGY - GENERAL ORDERABLES Final Result [facility] Department [place] [address] * (ABNORMAL) CBC with auto differential (08/29/2024 12:27 PM CDT) [facility] [address] WBC 4.4 3.8 - 9.9 K/cumm Hgb 11.0(L) 13.0 - 17.5 g/dL [facility] Hct 33.6(L) 38.9 - 50.3 % [facility] Plt 100(L) 150 - 400 K/cumm [facility] MPV 9.8 9.1 - 12.3 fL [facility] RBC 4.18(L) 4.30 - 5.80 M/cumm [facility] MCV 80.4(L) 81.3 - 96.4 fL [facility] MCH 26.3(L) 27.1 - 33.3 pg [facility] MCHC 32.7 32.3 - 35.7 g/dL [facility] RDW CV 14.8 11.1 - 14.9 % [facility] RDW SD 42.5 35.7 - 48.1 fL [facility] NRBC abs 0.02(H) 0.00 - 0.01 K/cumm [facility] Blood 08/29/2024 12:2 7 PM CDT 08/29/2024 12:43 PM CDT us Manjit Espinoza MD LAB BLOOD ORDERABLES Final Result [facility] Department [place] [address] * (ABNORMAL) Comprehensive metabolic panel (08/29/2024 12:27 PM CDT) Sodium 128(L) 135 - 145 mmol/L Potassium, pl 4.3 3.3 - 4.9 mmol/L [facility] Chloride 93(L) 97 - 110 mmol/L [facility] CO2 24 22 - 32 mmol/L [facility] Anion gap 11 2 - 15 mmol/L [facility] BUN 24 6 - 25 mg/dL [facility] Creatinine 1.04 0.80 - 1.30 mg/dL [facility] Glucose 116 70 - 199 mg/dL [facility] Comment: Interpretive Data Fasting glucose [...] 2022. Calcium 9.1 8.5 - 10.3 mg/dL [facility] Bilirubin, total 0.5 0.1 - 1.2 mg/dL [facility] Protein, pl 6.8 6.5 - 8.5 g/dL [facility] Albumin 3.4(L) 3.5 - 5.0 g/dL [facility] Alk phos 131(H) 40 - 130 Units/L [facility] ALT 32 7 - 55 Units/L [facility] AST 30 10 - 50 Units/L [facility] Blood 08/29/2024 12:2 7 PM CDT 08/29/2024 12:43 PM CDT us Manjit Espinoza MD LAB BLOOD ORDERABLES Final Result Performing Organization Address City/State/[facility] Co de Phone Number [facility] Department [place] [address] * eGFR (08/29/2024 10:34 AM CDT) eGFR [...] MD LAB BLOOD ORDERABLES Yolette banda Result [facility] Department [place] [address] * (ABNORMAL) Differential, auto (08/29/2024 10:34 AM CDT) Neutrophil abs 3.8 1.5 - 6.5 K/cumm Comment:Testing performed by : [facility], [address] [place] [address] Lymphocyte abs 0.4(L) 0.8 - 3.3 K/cumm [facility] Comment:Testing performed by : [facility], [address] [place], [place] [phone] Monocyte abs 0.2 0.2 - 0.8 K/cumm [facility] Comment:Testing performed by : [facility], [address] [place] [address] Eosinophil abs 0.1 0.0 - 0.5 K/cumm [facility] Comment:Testing performed by : [facility], [address] [place] [phone] Basophil abs 0.0 0.0 - 0.1 K/cumm [facility] Comment:Testing performed by : [facility], [address] [place] [address] Neutrophil pct 84.7 % [facility] Comment: Interpretive Data Percent cell count reference ranges are not reported, since discordance with absolute values may lead to misinterpretation of CBC data. Current Interpretive Data was last revised on 2018. Testing performed by: [facility], [address] [place] [phone] Lymphocyte pct 8.7 % [facility] Comment: Interpretive Data Percent cell count reference ranges are not reported, since discordance with absolute values may lead to misinterpretation of CBC data. Current Interpretive Data was last revised on 2018. Testing performed by: [facility], [address] [place] [phone] Monocyte pct 4.6 % [facility] Comment: Interpretive Data Percent cell count reference ranges are not reported, since discordance with absolute values may lead to misinterpretation of CBC data. Current Interpretive Data was last revised on 2018. Testing performed by: [facility], [address] [place] [phone] Eosinophil pct 1.5 % [facility] Comment: Interpretive Data Percent cell count reference ranges are not reported, since discordance with absolute values may lead to misinterpretation of CBC data. Current Interpretive Data was last revised on 2018. Testing performed by: [facility], [address] [place] [phone] Basophil pct 0.5 % [facility] Comment: Interpretive Data Percent cell count reference ranges are not reported, since discordance with absolute values may lead to misinterpretation of CBC data. Current Interpretive Data was last revised on 2018. Testing performed by: [facility], [address] [place] [phone] Blood 08/29/2024 10:3 4 AM CDT 08/29/2024 10:35 AM CDT us Stan Meza MD LAB BLOOD ORDERABLES Yolette l Result [facility] Department [place] [address] * (ABNORMAL) CBC with auto differential (08/29/2024 10:34 AM CDT) WBC 4.5 3.8 - 9.9 K/cumm Comment:Testing performed by : [facility], [address] [place] [address] Hgb 11.4(L) 13.0 - 17.5 g/dL [facility] Comment:Testing performed by : [facility], [address] [place], [place] [phone] Hct 35.2(L) 38.9 - 50.3 % [facility] Comment:Testing performed by : [facility], [address] [place], [place] [phone] Plt 111(L) 150 - 400 K/cumm [facility] Comment:Testing performed by : [facility], [address] [place] [address] MPV 7.3 6.8 - 10.4 fL [facility] Comment:Testing performed by : [facility], [address] [place], [place] [phone] RBC 4.32 4.30 - 5.80 M/cumm [facility] Comment:Testing performed by : [facility], [address] [place] [address] MCV 81.4 81.3 - 96.4 fL [facility] Comment:Testing performed by : [facility], [address] [place] [address] MCH 26.4(L) 27.1 - 33.3 pg [facility] Comment:Testing performed by : [facility], [address] [place] [address] MCHC 32.4 32.3 - 35.7 g/dL [facility] Comment:Testing performed by : [facility], [address] [place] [address] RDW CV 14.8 11.1 - 14.9 % [facility] Comment:Testing performed by : [facility], [address] [place] [address] NRBC abs 0.00 0.00 - 0.01 K/cumm [facility] Comment:Testing performed by : [facility], [address] [place] [address] Blood 08/29/2024 10:3 4 AM CDT 08/29/2024 10:35 AM CDT us Stan Meza MD LAB BLOOD ORDERABLES Yolette banda Result [facility] Department [place] [address] * (ABNORMAL) Comprehensive metabolic panel (08/29/2024 10:34 AM CDT) Sodium 128(L) 135 - 145 mmol/L Potassium, pl 3.9 3.3 - 4.9 mmol/L [facility] Chloride 92(L) 97 - 110 mmol/L [facility] CO2 26 22 - 32 mmol/L [facility] Anion gap 10 2 - 15 mmol/L [facility] BUN 25 6 - 25 mg/dL [facility] Creatinine 1.08 0.80 - 1.30 mg/dL [facility] Glucose 108 70 - 199 mg/dL [facility] Comment: Interpretive Data Fasting glucose [...] 2022. Calcium 9.3 8.5 - 10.3 mg/dL [facility] Bilirubin, total 0.5 0.1 - 1.2 mg/dL [facility] Protein, pl 7.1 6.5 - 8.5 g/dL [facility] Albumin 3.5 3.5 - 5.0 g/dL [facility] Alk phos 136(H) 40 - 130 Units/L [facility] ALT 34 7 - 55 Units/L [facility] AST 25 10 - 50 Units/L [facility] Blood 08/29/2024 10:3 4 AM CDT 08/29/2024 10:38 AM CDT Stan Meza MD LAB BLOOD ORDERABLES Yolette l Result Performing Organization Address [facility] [place]/[facility] Co de Phone Number [facility] Department [place] [address] * eGFR (08/22/2024 11:10 AM CDT) eGFR [...] 0 AM CDT 08/22/2024 11:28 AM CDT Stan Meza MD LAB BLOOD ORDERABLES Yolette l Result [facility] Department [place] [address] * (ABNORMAL) Differential, auto (08/22/2024 11:10 AM CDT) Neutrophil abs 8.6(H) 1.5 - 6.5 K/cumm Comment:Testing performed by : [facility], [address] [place] [phone] Lymphocyte abs 0.3(L) 0.8 - 3.3 K/cumm [facility] Comment:Testing performed by : [facility], [address] [place] [phone] Monocyte abs 0.1(L) 0.2 - 0.8 K/cumm [facility] Comment:Testing performed by : [facility], [address] [place] [phone] Eosinophil abs 0.0 0.0 - 0.5 K/cumm [facility] Comment:Testing performed by : [facility], [address] [place] [phone] Basophil abs 0.0 0.0 - 0.1 K/cumm [facility] Comment:Testing performed by : [facility], [address] [place] [phone] Neutrophil pct 95.7 % [facility] Comment: Interpretive Data Percent cell count reference ranges are not reported, since discordance with absolute values may lead to misinterpretation of CBC data. Current Interpretive Data was last revised on 2018. Testing performed by: [facility], [address] [place] [phone] Lymphocyte pct 2.8 % [facility] Comment: Interpretive Data Percent cell count reference ranges are not reported, since discordance with absolute values may lead to misinterpretation of CBC data. Current Interpretive Data was last revised on 2018. Testing performed by: [facility], [address] [place] [phone] Monocyte pct 1.5 % [facility] Comment: Interpretive Data Percent cell count reference ranges are not reported, since discordance with absolute values may lead to misinterpretation of CBC data. Current Interpretive Data was last revised on 2018. Testing performed by: [facility], [address] [place] [phone] Eosinophil pct 0.0 % [facility] Comment: Interpretive Data Percent cell count reference ranges are not reported, since discordance with absolute values may lead to misinterpretation of CBC data. Current Interpretive Data was last revised on 2018. Testing performed by: [facility], [address] [place] [phone] Basophil pct 0.0 % [facility] Comment: Interpretive Data Percent cell count reference ranges are not reported, since discordance with absolute values may lead to misinterpretation of CBC data. Current Interpretive Data was last revised on 2018. Testing performed by: [facility], [address] [place] [phone] Blood 08/22/2024 11:1 0 AM CDT 08/22/2024 11:25 AM CDT Stan Meza MD LAB BLOOD ORDERABLES Yolette l Result Performing Organization Address City/[facility]/ZIP Co de Phone Number [facility] Department [place] [address] * (ABNORMAL) Thyroid Function Avery (08/22/2024 11:10 AM CDT) TSH 0.27(L) 0.30 - 4.20 mcIUnit/mL Blood 08/22/2024 11:1 0 AM CDT 08/22/2024 11:28 AM CDT Stan Meza MD LAB BLOOD ORDERABLES Yolette l Result [facility] Department [place] [address] * (ABNORMAL) CBC with auto differential (08/22/2024 11:10 AM CDT) WBC 9.0 3.8 - 9.9 K/cumm Comment:Testing performed by : [facility], [address] [place] [address] Hgb 12.1(L) 13.0 - 17.5 g/dL [facility] Comment:Testing performed by : [facility], [address] [place] [address] Hct 37.7(L) 38.9 - 50.3 % [facility] Comment:Testing performed by : [facility], [address] [place] [address] Plt 216 150 - 400 K/cumm [facility] Comment:Testing performed by : [facility], [address] [place] [address] MPV 7.3 6.8 - 10.4 fL [facility] Comment:Testing performed by : [facility], [address] [place] [address] RBC 4.49 4.30 - 5.80 M/cumm [facility] Comment:Testing performed by : [facility], [address] [place] [address] MCV 84.1 81.3 - 96.4 fL [facility] Comment:Testing performed by : [facility], [address] [place] [address] MCH 27.0(L) 27.1 - 33.3 pg [facility] Comment:Testing performed by : [facility], [address] [place] [address] MCHC 32.2(L) 32.3 - 35.7 g/dL [facility] Comment:Testing performed by : [facility], [address] [place] [address] RDW CV 14.5 11.1 - 14.9 % [facility] Comment:Testing performed by : [facility], [address] [place] [address] NRBC abs 0.00 0.00 - 0.01 K/cumm [facility] Comment:Testing performed by : [facility], [address] [place] [phone] Blood 08/22/2024 11:1 0 AM CDT 08/22/2024 11:25 AM CDT Stan Meza MD LAB BLOOD ORDERABLES Yolette l Result [facility] [employer] [address] * T3, free (08/22/2024 11:10 AM CDT) Free T3 2.1 2.0 - 4.4 pg/mL Blood 08/22/2024 11:1 0 AM CDT 08/22/2024 11:28 AM CDT Narrative [facility] 08/22/2024 12:47 PM CDT This test was reflexed from a T4 result. Stan Meza MD LAB BLOOD ORDERABLES Yolette l Result Performing Organization Address [facility] [place]/[facility] Co de Phone Number [facility] [employer] [place] [address] * T4, free (08/22/2024 11:10 AM CDT) Free T4 1.29 0.90 - 1.70 ng/dL Blood 08/22/2024 11:1 0 AM CDT 08/22/2024 11:28 AM CDT Narrative [facility] 08/22/2024 12:25 PM CDT This test was reflexed from a TSH result. Stan Meza MD LAB BLOOD ORDERABLES Yolette l Result Performing Organization Address City/[facility]/ZIP Co de Phone Number [facility] [employer] [place] [address] * (ABNORMAL) Comprehensive metabolic panel (08/22/2024 11:10 AM CDT) Sodium 131(L) 135 - 145 mmol/L Potassium, pl 4.2 3.3 - 4.9 mmol/L [facility] Chloride 97 97 - 110 mmol/L [facility] CO2 26 22 - 32 mmol/L [facility] Anion gap 8 2 - 15 mmol/L [facility] BUN 12 6 - 25 mg/dL [facility] Creatinine 0.66(L) 0.80 - 1.30 mg/dL [facility] Glucose 156 70 - 199 mg/dL [facility] Comment: Interpretive Data Fasting glucose [...] 2022. Calcium 9.3 8.5 - 10.3 mg/dL [facility] Bilirubin, total 0.3 0.1 - 1.2 mg/dL [facility] Protein, pl 7.5 6.5 - 8.5 g/dL [facility] Albumin 3.6 3.5 - 5.0 g/dL [facility] Alk phos 145(H) 40 - 130 Units/L [facility] ALT 29 7 - 55 Units/L [facility] AST 25 10 - 50 Units/L [facility] Blood 08/22/2024 11:1 0 AM CDT 08/22/2024 11:28 AM CDT us Stan Meza MD LAB BLOOD ORDERABLES Yolette veronika Result [facility] Department [place] [address] * RAD ONC ARIA COURSE SUMMARY (08/19/2024 [...] ORD ERABLES Final Result Performing Organization Address [facility] [place]/State/ZIP Co de Phone Number TAMELA * RAD ONC ARIA SESSION SUMMARY (08/15/2024 12:13 PM CDT) Course Name [id number] c_24 ARIA Course [...] ORD ERABLES Final Result Performing Organization Address [facility] [place]/[facility] de Phone Number ARIMickie * eGFR (08/15/2024 6:45 AM CDT) eGFR [...] MD LAB BLOOD ORDERABLES Yolette banda Result [facility] Department [place] [address] * (ABNORMAL) Differential, auto (08/15/2024 6:45 AM CDT) Neutrophil abs 9.6(H) 1.5 - 6.5 K/cumm Comment:Testing performed by : [facility], [address] [place] [phone] Lymphocyte abs 1.7 0.8 - 3.3 K/cumm [facility] Comment:Testing performed by : [facility], [address] [place] [phone] Monocyte abs 1.0(H) 0.2 - 0.8 K/cumm [facility] Comment:Testing performed by : [facility], [address] [place] [phone] Eosinophil abs 0.3 0.0 - 0.5 K/cumm [facility] Comment:Testing performed by : [facility], [address] [place] [phone] Basophil abs 0.1 0.0 - 0.1 K/cumm [facility] Comment:Testing performed by : [facility], [address] [place] [phone] Neutrophil pct 75.9 % [facility] Comment: Interpretive Data Percent cell count reference ranges are not reported, since discordance with absolute values may lead to misinterpretation of CBC data. Current Interpretive Data was last revised on 2018. Testing performed by: [facility], [address] [place] [phone] Lymphocyte pct 13.0 % [facility] Comment: Interpretive Data Percent cell count reference ranges are not reported, since discordance with absolute values may lead to misinterpretation of CBC data. Current Interpretive Data was last revised on 2018. Testing performed by: [facility], [address] [place] [phone] Monocyte pct 8.2 % [facility] Comment: Interpretive Data Percent cell count reference ranges are not reported, since discordance with absolute values may lead to misinterpretation of CBC data. Current Interpretive Data was last revised on 2018. Testing performed by: [facility], [address] [place] [phone] Eosinophil pct 2.3 % [facility] Comment: Interpretive Data Percent cell count reference ranges are not reported, since discordance with absolute values may lead to misinterpretation of CBC data. Current Interpretive Data was last revised on 2018. Testing performed by: [facility], [address] [place] [phone] Basophil pct 0.6 % [facility] Comment: Interpretive Data Percent cell count reference ranges are not reported, since discordance with absolute values may lead to misinterpretation of CBC data. Current Interpretive Data was last revised on 2018. Testing performed by: [facility], [address] [place] [phone] Blood 08/15/2024 6:45 AM CDT 08/15/2024 6:55 AM CDT Stan Meza MD LAB BLOOD ORDERABLES Yolette l Result [facility] Department [place] [address] * (ABNORMAL) CBC with auto differential (08/15/2024 6:45 AM CDT) WBC 12.7(H) 3.8 - 9.9 K/cumm Comment:Testing performed by : [facility], [address] [place] [address] Hgb 12.3(L) 13.0 - 17.5 g/dL [facility] Comment:Testing performed by : [facility], [address] [place] [address] Hct 38.3(L) 38.9 - 50.3 % [facility] Comment:Testing performed by : [facility], [address] [place] [address] Plt 341 150 - 400 K/cumm [facility] Comment:Testing performed by : [facility], [address] [place] [address] MPV 6.6(L) 6.8 - 10.[address] [facility] Comment:Testing performed by : [facility], [address] [place] [address] RBC 4.55 4.30 - 5.80 M/cumm [facility] Comment:Testing performed by : [facility], [address] [place] [address] MCV 84.1 81.3 - 96.[address] [facility] Comment:Testing performed by : [facility], [address] [place] [address] MCH 27.1 27.1 - 33.3 pg [facility] Comment:Testing performed by : [facility], [address] [place] [address] MCHC 32.2(L) 32.3 - 35.7 g/dL [facility] Comment:Testing performed by : [facility], [address] [place] [address] RDW CV 13.9 11.1 - 14.9 % [facility] Comment:Testing performed by : [facility], [address] [place] [phone] NRBC abs 0.00 0.00 - 0.01 K/cumm [facility] Comment:Testing performed by : [facility], [address] [place] [phone] Blood 08/15/2024 6:45 AM CDT 08/15/2024 6:55 AM CDT Stan Meza MD LAB BLOOD ORDERABLES Yolette l Result [facility] Department [place] [address] * TSH (08/15/2024 6:45 AM CDT) [facility] [address] Thyroid Stimulating Hormone 2.36 0.30 - 4.20 mcIUnit/mL Blood 08/15/2024 6:45 AM CDT 08/15/2024 6:56 AM CDT Stan Meza MD LAB BLOOD ORDERABLES Yolette l Result Performing Organization Address City/[facility]/ZIP Co de Phone Number [facility] [place] [address] * (ABNORMAL) Comprehensive metabolic panel (08/15/2024 6:45 AM CDT) [facility] [address] Sodium 133(L) 135 - 145 mmol/L Potassium, pl 4.5 3.3 - 4.9 mmol/L [facility] Chloride 98 97 - 110 mmol/L [facility] CO2 29 22 - 32 mmol/L [facility] Anion gap 6 2 - 15 mmol/L [facility] BUN 8 6 - 25 mg/dL [facility] Creatinine 0.71(L) 0.80 - 1.30 mg/dL [facility] Glucose 98 70 - 199 mg/dL [facility] Comment: Interpretive Data Fasting glucose [...] 2022. Calcium 9.5 8.5 - 10.3 mg/dL [facility] Bilirubin, total 0.4 0.1 - 1.2 mg/dL [facility] Protein, pl 7.1 6.5 - 8.5 g/dL [facility] Albumin 3.4(L) 3.5 - 5.0 g/dL [facility] Alk phos 163(H) 40 - 130 Units/L [facility] ALT 36 7 - 55 Units/L [facility] AST 22 10 - 50 Units/L [facility] Blood 08/15/2024 6:45 AM CDT 08/15/2024 6:56 AM CDT us Stan Meza MD LAB BLOOD ORDERABLES Yolette l Result [facility] Department [place] [address] * RAD ONC ARIA SESSION SUMMARY (08/14/2024 [...] ARIA * RAD ONC ARIA SESSION SUMMARY (08/13/2024 [...] ARIA SESSION SUMMARY (08/12/2024 4:02 PM CDT) Course Name [id number] c_24 ARIA Course [...] ONCOLOGY ORD ERABLES Final Result TAMELA * eGFR (08/01/2024 8:02 AM CDT) eGFR >90 >=60 mL/min/1. 73 [...] MD LAB BLOOD ORDERABLES Yolette banda Result [facility] [place] [address] * (ABNORMAL) Differential, auto (08/01/2024 8:02 AM CDT) Neutrophil abs 5.7 1.5 - 6.5 K/cumm Comment:Testing performed by : [facility], [address] [place] [address] Lymphocyte abs 1.9 0.8 - 3.3 K/cumm CERNER BJ Comment:Testing performed by : [facility], [address] [place], [place] [phone] Monocyte abs 1.1(H) 0.2 - 0.8 K/cumm CERNER BJ Comment:Testing performed by : [facility], [address] [place], [place] [phone] Eosinophil abs 0.5 0.0 - 0.5 K/cumm CERNER BJ Comment:Testing performed by : [facility], [address] [place] [phone] Basophil abs 0.1 0.0 - 0.1 K/cumm CERNER BJ Comment:Testing performed by : [facility], [address] [place] [phone] Neutrophil pct 61.6 % CERNER BJ Comment: Interpretive Data Percent cell count reference ranges are not reported, since discordance with absolute values may lead to misinterpretation of CBC data. Current Interpretive Data was last revised on 2018. Testing performed by: [facility], [address] [place] [phone] Lymphocyte pct 20.3 % CERNER BJ Comment: Interpretive Data Percent cell count reference ranges are not reported, since discordance with absolute values may lead to misinterpretation of CBC data. Current Interpretive Data was last revised on 2018. Testing performed by: [facility], [address] [place] [phone] Monocyte pct 11.9 % [facility] Comment: Interpretive Data Percent cell count reference ranges are not reported, since discordance with absolute values may lead to misinterpretation of CBC data. Current Interpretive Data was last revised on 2018. Testing performed by: [facility], [address] [place] [phone] Eosinophil pct 5.4 % [facility] Comment: Interpretive Data Percent cell count reference ranges are not reported, since discordance with absolute values may lead to misinterpretation of CBC data. Current Interpretive Data was last revised on 2018. Testing performed by: [facility], [address] [place] [phone] Basophil pct 0.8 % [facility] Comment: Interpretive Data Percent cell count reference ranges are not reported, since discordance with absolute values may lead to misinterpretation of CBC data. Current Interpretive Data was last revised on 2018. Testing performed by: [facility], [address] [place] [phone] Blood 08/01/2024 8:02 AM CDT 08/01/2024 8:08 AM CDT us Stan Meza MD LAB BLOOD ORDERABLES Yolette l Result [facility] Department [place] [address] * (ABNORMAL) CBC with auto differential (08/01/2024 8:02 AM CDT) WBC 9.3 3.8 - 9.9 K/cumm Comment:Testing performed by : [facility], [address] [place] [phone] Hgb 11.7(L) 13.0 - 17.5 g/dL [facility] Comment:Testing performed by : [facility], [address] [place] [address] Hct 35.5(L) 38.9 - 50.3 % CERNER BJ Comment:Testing performed by : [facility], [address] [place], [place] [phone] Plt 345 150 - 400 K/cumm CERNER BJ Comment:Testing performed by : [facility], [address] [place], [place] [phone] MPV 6.9 6.8 - 10.4 fL CERNER BJ Comment:Testing performed by : [facility], [address] [place], [place] [phone] RBC 4.26(L) 4.30 - 5.80 M/cumm CERNER BJ Comment:Testing performed by : [facility], [address] [place], [place] [phone] MCV 83.5 81.3 - 96.4 fL CERNER BJ Comment:Testing performed by : [facility], [address] [place], [place] [id number] MCH 27.5 27.1 - 33.3 pg CERNER BJ Comment:Testing performed by : [facility], [address] [place] [address] MCHC 33.0 32.3 - 35.7 g/dL CERNER BJ Comment:Testing performed by : [facility], [address] [place] [address] RDW CV 12.9 11.1 - 14.9 % CERNER BJ Comment:Testing performed by : [facility], [address] [place] [address] NRBC abs 0.00 0.00 - 0.01 K/cumm CERNER BJ Comment:Testing performed by : [facility], [address] [place], [place] [phone] Blood 08/01/2024 8:02 AM CDT 08/01/2024 8:08 AM CDT us Stan Meza MD LAB BLOOD ORDERABLES Yolette banda Result [facility] Department [place] [address] * (ABNORMAL) Comprehensive metabolic panel (08/01/2024 8:02 AM CDT) Sodium 133(L) 135 - 145 mmol/L Potassium, pl 3.6 3.3 - 4.9 mmol/L [facility] Chloride 98 97 - 110 mmol/L [facility] CO2 28 22 - 32 mmol/L [facility] Anion gap 7 2 - 15 mmol/L [facility] BUN 6 6 - 25 mg/dL [facility] Creatinine 0.66(L) 0.80 - 1.30 mg/dL [facility] Glucose 104 70 - 199 mg/dL [facility] Comment: Interpretive Data Fasting glucose [...] 2022. Calcium 9.6 8.5 - 10.3 mg/dL [facility] Bilirubin, total 0.4 0.1 - 1.2 mg/dL [facility] Protein, pl 7.6 6.5 - 8.5 g/dL [facility] Albumin 3.3(L) 3.5 - 5.0 g/dL [facility] Alk phos 125 40 - 130 Units/[facility] ALT 19 7 - 55 Units/L [facility] AST 18 10 - 50 Units/L [facility] Blood 08/01/2024 8:02 AM CDT 08/01/2024 8:15 AM CDT us Stan Meza MD LAB BLOOD ORDERABLES Yolette veronika Result [facility] Department [place] [address] * PET/CT FDG Skull to Thigh (07/31/2024 [...] FDG-PET/CT IMAGING DATE OF STUDY: ??07/31/2024 SCANNER: [employer] (SQ1). ??This is a high-resolution scanner, which [...] obtained. ??The study was interpreted on the [employer] workstation. ??The mean liver SUV (reported for quality assurance coordinator purposes) is 2.8. ?? The total scanned [...] FDG-PET/CT IMAGING DATE OF STUDY: 07/31/2024 SCANNER: [facility] eleni (SQ1). This is a high-resolution scanner, which [...] obtained. The study was interpreted on the [employer] workstation. The mean liver SUV (reported for quality assurance coordinator purposes) is 2.8. The total scanned area [...] Mitchell Colmenares M.D. us Stan Meza MD IM PET PROCEDURES Final Result * MRI Brain [...] Final Result from Last 3 Months Insurance [facility] Care Teams Filenet Developer Relationship Specialty Start Date End Date Matthew Mccabe MD [address] [place] [address] PCP - General Family Medicine 05/13/24 Stan Meza MD [address] [facility], [address] [place] [address] Medical Oncologist/Neonatal Nurse Practitioner Medical Oncology 06/28/24
--- OUTSIDE RECORDS SUMMARY | 2024-10-30 07:02 | XMS_ITS | Encounter Summary ---
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 Pt feels he does ot need palliative at this time. Contact information given for future if patient changes his mind. Palliative Care [phone]. MIXER ASSEMBLER documented in this encounter Plan of Treatment Not on file documented as of this encounter Visit Diagnoses Not on filedocumented in this encounter Care Teams Furniture Assembler And Installer Relationship Specialty Start Date End Date Matthew Mccabe MD [address] [place] [address] PCP - General Family Medicine 05/13/24 Stan Meza MD [address] [facility]COL[facility], [address] [place] [address] Medical Oncologist/Charger Medical Oncology 06/28/24 documented as of this encounter
--- OUTSIDE RECORDS SUMMARY | 2024-10-30 07:02 | XMS_ITS | Encounter Summary ---
Author Organization [facility] Healthcare Address [address] [place] [address] Care Team Providers Care Occ Therapist Name Role Phone Matthew Mccabe MD Primary Care Prov ider Stan Meza MD Unavailable [phone] Reason for Visit * Episode Based Medications (Routine) - Authorized Specialty Diagnoses / Procedures Referred By Contac t Referred To Contact Diagnoses 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) Stan Meza MD [address] [place] [address] Phone: tel: fax: [facility] - [facility]fusion [address] [facility] [address] [place] [address] Referral ID Status Reason Start Date Expiration Date V isits Requested Visits Authorized [id number] Authorized 08/20/2024 02/06/2025 1 50 Encounter Details Date Type Department Care Team (Late st Contact Info) Description 09/25/2024 9:00 AM CHART CHANGER Infusion [facility] [address] [facility] [address] [place] [address] Primary cancer of left lower lobe of [...] on file Legal Sex Male 6:04 PM CHART CHANGER Gender Identity Not on file Sexual Orientation Not on file documented as of this encounter Progress Notes * Joann Olivares, RD - 09/25/2024 9:00 AM CST Oncology Nutrition Follow Up Note 63 y.o. with 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) Weight: Wt Readings from Last 10 Encounters: 09/25/24 91.9 kg (202 lb 9.6 oz) [...] 08/01/24 97.7 kg (215 lb 6.4 oz) Current BMI: 32.70 [place] body weight: 65.9 kg (145 lb 5.8 oz) Adjusted ideal body weight: 76.3 kg (168 lb 4.1 oz) Estimated Energy Needs: Based on: 92 kg Calories 9419-3518 kcal/day 20-25 kcal/kg Protein 92-110 g/day 1.0-1.2 g/kg Fluid 7627-6732 ml/day or Per MD 1 ml/kcal or per MD Impression: Pt reports poor appetite, has not been eating well or drinking much Ensure. Pt was originally eating at least one meal and drinking Ensure TID, however, he has not been feeling hungry and has been having taste changes so he has significantly reduced intake. RD encouraged pt to go back ot drinking Ensure TID-QID and adding in ice cream to enhance taste and calories. Pt agreeable but states that itis really hard for him to keep up with his eating when he has no hunger. Pt reports continuous nausea, vomited on Monday, but no issues since. Pt reports struggling with constipation, is on miralax, senna, and stool softeners but is not taking them every day. Last BM 09/23. RD encouraged pt to take laxatives/stool softener every day for effectiveness. RD encouraged adequate intake of food and water to help relieve constipation. RD reached out to RN for appetite stimulants. RD to follow. Diet recall: some azerbaijani food, one Ensure Intervention: Patient with poor appetite: - Encourage [...] Joann Olivares MS, RD, LD Clinical Dietitian [phone] T CHANGER documented in this encounter Nursing Notes * Anusha Jimenez, ALYX - 09/25/2024 9:00 AM CST Oncology Nursing Note [facility] Josafat Calvo is a 63 y.o. male who presents for treatment cycle 2, day 1 of Pembrolizumab, Abraxane, carboplatin. Pre-treatment Nursing Assessment Nursing Assessment LOC: Alert, Awake Constitutional: Dizziness, Fatigue ( feel like my equilibrium is off ) Fatigue: Constant Any falls since your last visit?: No Orientation: Oriented x4 Behavior: Calm Speech: Clear Language: No aphasia Vision: At baseline Peripheral Neuropathy: No Oral Mucosa Grade: Normal (0) Pt states has potential to be ?: N/A Shortness of Breath?: Yes (COPD/asthma) Pt is on oxygen?: No Respiratory Effort Characteristics: Dyspnea exertion Cough: Productive, Infrequent Appetite: Fair Have You Recently Lost Weight Without Trying?: No Have you been eating poorly because of a decreased appetite?: No Malnutrition Screening Tool (MST) Score: 0 Nausea/Vomiting: No Abdomen: Soft Diarrhea: No Constipation: No Last BM Date: 09/24/24 Skin Condition/Temp: Warm, Dry Swelling: No Additional Notes: Encounter Vitals BP: 142/91 (09/25/2024 7:00 AM) Pulse: 88 (09/25/2024 7:00 AM) Resp: 18 (09/25/2024 7:00 AM) Temp: 36.5 ??C (97.7 ??F) (09/25/2024 7:00 AM) Temp src: Oral (09/25/2024 7:00 AM) SpO2: 98 % (09/25/2024 7:00 AM) Weight: 91.9 kg (202 lb 9.6 oz) (09/25/2024 7:00 AM) Pain Loc: CHEST (09/25/2024 8:00 AM) Pain Score: 3 Treatment Patient: met treatment parameters Pre blood return: Surajnav Calvo tolerated treatment well. Patient was frequently observed and monitored throughout the administration of their treatment. Additional Notes: Post blood return: Brisk IV access post infusion: NS Patient Education Treatment Education: Information/teaching given to patient including fall prevention and process and procedure related to today's visit Response: Verbalizes understanding Discharge Plan Discharge instructions given to patient. Future appointments given and reviewed with treatment plan. Discharge Mode: Ambulatory Accompanied by: Self Discharged To: Home T CHANGER documented in this encounter Plan of Treatment Not on file documented as of this encounter Visit Diagnoses Diagnosis 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)- Primary documented in this encounter Administered Medications Inactive Administered Medications - up to 3 most recent administrations Medication Order MAR Action Action Date Dose Rate Site ALBUMIN-BOUND PACLItaxel (ABRAXANE) 5 mg/mL syringe 170 mg 170 mg (rounded from 168.8 mg = 80 mg/m2 ? 2.11 m2 Treatment Plan BSA from Recorded weight), intravenous, at 68 mL/hr, Administer over 30 Minutes, Once, On Mon09/25/24 at 1015, For 1 dose, Do NOT use a filter during administration. Irritant with vesicant potential. ADMINISTER BY SYRINGE PUMP ONLY - NOT IV PUSH.Indications: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) New Bag 09/25/2024 10:14 AM CHART CHANGER 170 mg 68 mL/hr aprepitant (CINVANTI) injection 130 mg 130 mg, intravenous, at 540 mL/hr, Administer over 2 Minutes, Once, On Mon09/25/24 at 0915, For 1 dose, IV over 2 minutes; avoid shaking.Indications: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) Given 09/25/2024 8:55 AM CHART CHANGER 130 mg 540 mL/hr CARBOplatin (PARAPLATIN) 600 mg in sodium chloride 0.9% 250 mL IVPB (By AUC) 600 mg (Target AUC = 4), intravenous, at 670 mL/hr, Administer over 30 Minutes, Once, On Mon09/25/24 at 1045, For 1 dose, IrritantIndications: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) New Bag 09/25/2024 10:57 AM CHART CHANGER 600 mg 670 mL/hr dexAMETHasone (DECADRON) preservative free solution 10 mg 10 mg, intravenous, Administer over 2 Minutes, Once, On Mon09/25/24 at 0915, For 1 doseIndications: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) Given 09/25/2024 8:55 AM CHART CHANGER 10 mg palonosetron (ALOXI) injection 250 mcg 250 mcg (0.25 mg), intravenous, Once, On Mon09/25/24 at 0915, For 1 dose, For IV push, administer over 30 seconds.Indications: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) Given 09/25/2024 8:55 AM CHART CHANGER 250 mcg pembrolizumab (KEYTRUDA) 200 mg in sodium chloride 0.9% 100 mL 200 mg, intravenous, at 236 mL/hr, Administer over 30 Minutes, Once, On Mon09/25/24 at 0945, For 1 dose, Use 0.2-5 micron filterIndications: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) New Bag 09/25/2024 9:36 AM CHART CHANGER 200 mg 236 mL/hr documented in this encounter Orders Nursing Count Last Ordered Date First Orde red Date ONCBCN NURSING COMMUNICATION [id number] 1 1 11/25/2023 ONCBCN TREATMENT PARAMETERS 18 1 09/25/2024 Appointment Requests Count Last Ordered Date Fi rst Ordered Date ONCBCN RETURN CHEMO 3HRS 1 09/25/2024 documented in this encounter Care Teams Occ Therapist Relationship Specialty Start Date End Date Matthew Mccabe MD [address] [place] [address] PCP - General Family Medicine 05/13/24 Stan Meza MD [address] [facility], [address] [place] [address] Medical Oncologist/Chip Unloader Medical Oncology 06/28/24 documented as of this encounter
--- OUTSIDE RECORDS SUMMARY | 2024-10-30 07:02 | XMS_ITS | CONTINUITY OF CARE DOCUMENT ---
Author Name eber velázquez Address Unknown Organization [facility] Address [address] [place] [address] Phone [phone] Care Team Providers Care Childbirth And Infant Care Teacher Name Role Phone Paul Holliday MD Unavailable JEAN ARMENTA MD Unavailable [phone] JEAN ARMENTA MD Unavailable [phone] PROBLEMS Condition Status Date Provider Notes Family History of Hypertension: active ? Delmy Holliday MD Family History of Sudden Cardiac : active ? Paul Holliday MD Family History of Hypertension: active ? Delmy Holliday MD Family History of Hyperlipidemia: active ? Us antonio Holliday MD Family History of CVA or Stroke: active ? Jess Holliday MD HISTORY OF TOBACCO ABUSE active Paul lamar MD BIPOLAR AFFECTIVE DISORDER active ? Paul lima MD COPD active ? Paul Holliday MD DEPRESSION active ? Paul Holliday MD BACK PAIN, CHRONIC active ? 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 Paul Holliday MD CHEST PAIN-TYPE TO BE DETERMINED active ? Jess Holliday MD HTN ESSENTIAL active ? Paul Holliday MD ENCOUNTERS Date Type Provider Location Encounter Diag nosis - In-person encounter Office Visit Paul Holliday MD [facility] Family History of CVA or Stroke:Family History of Hyperlipidemia:Family History of Hypertension:Family History of Sudden Cardiac :Family History of Hypertension: - In-person encounter Office Visit Paul Holliday MD [facility] - In-person encounter Office Visit Paul Holliday MD [facility] HTN ESSENTIALCHEST PAIN-TYPE TO BE DETERMINEDPE-2007BACK PAIN, CHRONICDEPRESSIONCOPDBIPOLAR AFFECTIVE DISORDERHISTORY OF TOBACCO ABUSE VITAL SIGNS Date Observation Value Provider Body Mass Index (Ratio) 38.77 kg/m2 Delmy Holliday MD blood pressure, cuff size large Ke rrbreana Rosario blood pressure, diastolic 90 mm[Hg] Ke rri Abraham blood pressure, systolic 140 mm[Hg] Bimal Rosario oxygen saturation, oximetry 98 % Jacinta Rosario respiratory rate E&M 18 /min Jacinta solorzano pulse rate 76 /min Jacinta Justin [facility] weight E&M 255 [lb_av] Jacinta Justin [facility] height E&M 68 [in_i] Jacinta Margoth [facility] Body Mass Index (Ratio) 43.34 kg/m2 Sobia moise Savage blood pressure, diastolic 90 mm[Hg] Me quinones Savage blood pressure, systolic 135 mm[Hg] Kavya burgess Savage pulse rate 74 /min Eliana Savage oxygen saturation, oximetry 97 % Eliana Savage respiratory rate E&M 16 /min Eliana Savage weight E&M 284 [lb_av] Eliana Savage blood pressure, diastolic 106 mm[Hg] Ulysses Mahmood RN blood pressure, systolic 157 mm[Hg] Doyle Mahmood RN pulse rate 87 /min Doyle Mahmood RN oxygen saturation, oximetry 98 % Doyle Mahmood RN respiratory rate E&M 16 /min Doyle contreras RN Body Mass Index (Ratio) 42.42 kg/m2 Doyle Perlalaurie WISDOM weight E&M 278 [lb_av] Doyle Timoteo WISDOM height E&M 68 [in_i] Doyle Mahmood RN ALLERGIES Allergy Name Onset Date Reaction Criticality Status PENICILLIN Low Criticality active RESULTS Date Observation Value Provider Reference Range Interpretation Location alanine aminotransferase (SGPT), serum 12 1/L [facility] aspartate aminotransferase (SGOT), serum 15 1/L [facility] creatinine, serum 0.83 mg/dL [facility] potassium, serum 3.2 mmol/L [facility] sodium, serum 134 mmol/L [facility] international normalized ratio (INR) 0.99 [facility] platelet count 193 10*3/mm3 [facility] hematocrit, blood 42.2 % [facility] triglyceride, serum, fasting 113 mg/dL [facility] HDL cholesterol, serum 44 mg/dL [facility] lipoprotein, beta, serum, point, quantitative, calculated 96 mg/dL [facility] cholesterol, serum 163 mg/dL [facility] thyroid stimulating hormone, serum 1.430 u[IU]/mL [facility] alanine aminotransferase (SGPT), serum 72 1/L [facility] aspartate aminotransferase (SGOT), serum 66 1/L [facility] creatinine, serum 1.02 mg/dL [facility] potassium, serum 3.7 mmol/L [facility] sodium, serum 132 mmol/L [facility] HISTORY OF MEDICATION USE Medication Status Instructions Dates Provider Indications Com ments MOTRIN IB TABLET active as needed Jacinta Rosario SPIRONOLACTONE 50 MG ORAL TABLET active take one pill a day Jacinta Rosario #30, 30 days supply, Prescribed by JUDAH EVANS, Filled 09/04/2018 ALBUTEROL SULFATE (2.5 MG/3ML) 0.083% INHALATION NEBULIZATION SOLUTION active VVN Q 4 H PRF SOB Jacinta Rosario #75, 15 days supply, Prescribed by JUDAH EVANS, Filled 08/09/2018 VENTOLIN HFA 108 (90 BASE) MCG/ACT INHALATION AEROSOL SOLUTION active INL 2 PFS PO QID PRN Jacinta Rosario #18, 25 days supply, Prescribed by JEAN ARMENTA, Filled 09/19/2018 RANITIDINE HCL 300 MG ORAL TABLET active TK ONE T PO BID Jacinta Rosario #60, 30 days supply, Prescribed by COLTON SALTER, Filled 09/19/2018 CARVEDILOL 25 MG ORAL TABLET active TK 1 T PO BID Jacinta Rosario #60, 30 days supply, Prescribed by JEAN ARMENTA, Filled 09/19/2018 LATANOPROST SOLUTION completed as directed - Jacinta Rosario MELOXICAM 7.5 MG ORAL TABLET active once daily Eliana Savage ASPIRIN 325 MG ORAL TABLET completed ONE TAB. DAILY - Jacinta Rosario CELEXA 40 MG ORAL TABLET completed take one pill a day - Jacinta Rosario TRAZODONE HCL 100 MG ORAL TABLET completed take one half pill at bedtime - Jacinta Rosario HYDROXYZINE HCL 50 MG ORAL TABLET completed take one pill three times a day - Jacinta Rosario VIAGRA 50 MG ORAL TABLET completed take one pill as needed - Jacinta Rosario DEPAKOTE 500 MG ORAL TABLET DELAYED RELEASE completed take two pills twice a day - Jacinta Rosario ADVAIR DISKUS 250-50 MCG/DOSE INHALATION AEROSOL POWDER BREATH ACTIVATED completed one puff twice a day - Doyle Mahmood RN [facility] NICOTINE 14 MG/24HR TRANSDERMAL PATCH 24 HOUR completed one patch every day - Doyle Mahmood RN OSTEO BI-FLEX REGULAR STRENGTH 250-200 MG ORAL TABLET completed take one pill a day - Doyle Mahmood RN SINGULAIR 10 MG ORAL TABLET completed take one pill a day - Doyle Mahmood RN IBUPROFEN TABLET completed 800mg take one will 3 times a day with food - Jacinta Rosario LOPRESSOR 100 MG ORAL TABLET completed take one pill twice a day - Jacinta Rosario MOBIC 7.5 MG ORAL TABLET completed take one pill a day - Doyle Mahmood RN PROAIR HFA AEROSOL SOLUTION completed 2 puffs every 4 to 6 hours as needed - Jacinta Rosario FLEXERIL 5MG completed take one pill a day - Jacinta Rosario LISINOPRIL-HYDRO CHLOROTHIAZIDE 20-25 MG ORAL TABLET completed take one pill twice a day - Jacinta Rosario SOCIAL HISTORY Date Observation Value Provider smoking status Current every day smoker U brice Holliday MD social history E&M Marital Statu s: Single Smoking History: P atient currently smokes every day. P atient has been counseled to quit. Paul Holliday MD social history reviewed E&M revi ewed - no changes required Paul Holliday MD smoking/tobacco cess ation, patient education and counseling yes Paul Holliday MD alcohol use, average drinks per day social Jacinta Rosario alcohol use yes Jacinta figueroa caffeine use, averag e drinks per day yes Jacinta Rosario drug use no Jacinta figueroa passive cigarette sm claudio exposure yes Jacinta Rosario smoking, date started 1977 Jacinta Rosario smoking history, tot al pack/year 37 Jacinta Rosario smoking history, tot al pack/day 3/4 Jacinta Rosario cigarette use yes Jacinta shabazz social history reviewed E&M reviewed Paul Holliday MD smoking history, tot al pack/year 37 Eliana Savage drug use no Doyle Mahmood RN passive cigarette sm claudio exposure yes Doyle Mahmood RN smoking history, tot al pack/day 3/ Doyle Mahmood RN smoking history, tot al pack/year 37 Doyle Mahmood RN cigarette use yes Doyle Mahmood RN smoking, date started 1977 Jerome santos RN social history E&M Marital Status: Single Doyle Mahmood RN caffeine use, averag e drinks per day yes Doyle Mahmood RN alcohol use, average drinks per day social Doyle Mahmood RN smoking status current every day smoker J jory Mahmood RN social history reviewed E&M reviewed Doyle Mahmood RN MENTAL STATUS Date Observation Value Provider assessment of judgme nt and insight E&M Alert and oriented to time, place and person. Mood and affect are normal. Paul Holliday MD assessment of judgme nt and insight E&M Alert and oriented to time, place and person. Mood and affect are normal. Doyle Mahmood RN FAMILY HISTORY Family Member Condition Mother Family History of Hy pertension: Father Family History of Briceno dden Cardiac : Father Family History of Co ronary Artery Disease: Father Family History of Hy pertension: Father Family History of Hy perlipidemia: Father Family History of CV A or Stroke: INSURANCE PROVIDERS Payer name Policy type / Coverage type [place] [employer] [place]ICA[employer] (2) Medicaid [id number] ADVANCE DIRECTIVES Name Date DISCUSSED - NO DECISION MADE TREATMENT PLAN Date Name Performer Cardiology New Patie nt : B P today: 140/90 P rior BP: 135/90 (03/13/2014) Labs Reviewed: C reat: 1.02 (01/16/2014) C hol: 163 (01/16/2014) HDL: 44 (01/16/2014) T (01/16/2014) Paul Holliday MD Cardiology New Patie nt :The Patient was reencouraged to stop smoking. Paul Holliday MD Cardiology New Patie nt :The Patient was reencouraged to stop smoking. Paul Holliday MD Cardiology New Patie nt :with his symptoms and multiple CRF i will rx a stress p harmacological and will get an echo. we will get his latest labs from Dr Armenta's office. Paul Holliday MD Follow Up: H is updated medication list for this problem includes: Proair Hfa Aers (Albuterol sulfate aers) ..... 2 puffs every 4 to 6 hours as needed Paul Holliday MD Follow Up: H is updated medication list for this problem includes: Lisinopril-hydrochlorothiazide 20-25 Mg Tabs (Lisinopril-hydrochlorothiazide) ..... Take one pill twice a day Lopressor 100 Mg Tabs (Metoprolol tartrate) ..... Take one pill twice a day Aspirin 325 Mg Tabs (Aspirin) ..... One tab. daily Orders: E KG (CPT-87251) S TR - Nuclear ([id number]) Paul Holliday MD chest pain : T he following medications were removed from the medication list: Singulair 10 Mg Tabs (Montelukast sodium) ..... Take one pill a day Advair Diskus 250-50 Mcg/dose Aepb (Fluticasone-salmeterol) ..... One puff twice a day His updated medication list for this problem includes: Proair Hfa Aers (Albuterol sulfate aers) ..... 2 puffs every 4 to 6 hours as needed B P today: 157/106 Prior BP: / () Pulmonary Functions Reviewed: O 2 sat: 98 (02/06/2014) Paul Holliday MD chest pain : O rders: Adolfo AMBROSIO (CPT-[id number]) Paul Holliday MD chest pain : H is updated medication list for this problem includes: Aspirin 325 Mg Tabs (Aspirin) ..... One tab. daily Paul Holliday MD chest pain :occurs r andomly and wakes him up form sleep on occassion. haspins and needles and has been under a lot of stress. H is updated medication list for this problem includes: Lisinopril-hydrochlorothiazide 20-25 Mg Tabs (Lisinopril-hydrochlorothiazide) ..... Take one pill twice a day Lopressor 100 Mg Tabs (Metoprolol tartrate) ..... Take one pill twice a day Aspirin 325 Mg Tabs (Aspirin) ..... One tab. daily BP today: 157/106 Prior BP: / () Orders: E DAILY (CPT-[id number]) Paul Holliday MD chest pain :states d id not take his meds. H is updated medication list for this problem includes: Lisinopril-hydrochlorothiazide 20-25 Mg Tabs (Lisinopril-hydrochlorothiazide) ..... Take one pill twice a day Lopressor 100 Mg Tabs (Metoprolol tartrate) ..... Take one pill twice a day Aspirin 325 Mg Tabs (Aspirin) ..... One tab. daily BP today: 157/106 Paul Holliday MD Date Name Complete Echo Stress Regadenoson STR - Nuclear HISTORY OF PROCEDURES Procedure Date Procedure Name Provider Procedure Notes S tatus EKG Paul Holliday MD completed EKG Paul Holliday MD completed EKG Paul Holliday MD completed
--- OUTSIDE RECORDS SUMMARY | 2024-10-30 07:02 | XMS_ITS | Encounter Summary ---
Author Organization [facility] Healthcare Address [address] [place] [address] Care Team Providers Care Lightning Rod Installer Name Role Phone Matthew Mccabe MD Primary Care Prov ider Stan Meza MD Unavailable [phone] Reason for Visit * Episode Based Medications (Routine) - Authorized Specialty Diagnoses / Procedures Referred By Contac t Referred To Contact Diagnoses 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) Stan Meza MD [address] [place] [address] Phone: tel: fax: [facility] [address] [facility] [address] [place] [address] Referral ID Status Reason Start Date Expiration Date V isits Requested Visits Authorized [id number] Authorized 08/20/2024 02/06/2025 1 50 Encounter Details Date Type Department Care Team (Late st Contact Info) Description 10/03/2024 8:30 AM POWDERED SUGAR PULVERIZER OPERATOR Infusion [facility] [address] [facility] [address] [place] [address] Primary cancer of left lower lobe of [...] on file Legal Sex Male 6:04 PM POWDERED SUGAR PULVERIZER OPERATOR Gender Identity Not on file Sexual Orientation Not on file documented as of this encounter Last Filed Vital Signs Vital Sign Reading Time Taken Comments Blood Pressure 106/72 10/03/2024 8:17 AM POWDERED SUGAR PULVERIZER OPERATOR Pulse 80 10/03/2024 8:17 AM POWDERED SUGAR PULVERIZER OPERATOR Temperature 36.5 ??C (97.7 ??F) 10/03/2024 8:17 AM CS T Respiratory Rate 18 10/03/2024 8:17 AM POWDERED SUGAR PULVERIZER OPERATOR Oxygen Saturation 98% 10/03/2024 8:17 AM POWDERED SUGAR PULVERIZER OPERATOR Inhaled Oxygen Concentration - - Weight 91 kg (200 lb 9.9 oz) 10/03/2024 8:17 AM POWDERED SUGAR PULVERIZER OPERATOR Height - - Body Mass Index 32.38 08/29/2024 12:07 PM CDT documented in this encounter Nursing Notes * Viki Gayle, RN - 10/03/2024 8:30 AM CST Oncology Nursing Note [facility] Josafat Calvo is a 63 y.o. male who presents for treatment cycle 2, day 8 of Abraxane. Pre-treatment Nursing Assessment Nursing Assessment LOC: Alert, Awake Constitutional: Fatigue Fatigue: Constant Any falls since your last visit?: No Orientation: Oriented x4 Behavior: Calm Speech: Clear Language: No aphasia Vision: At baseline Other neuro symptoms: (denies trouble thinking or confusion.) Peripheral Neuropathy: No Oral Mucosa Grade: Normal (0) Pt states has potential to be ?: No Shortness of Breath?: No Pt is on oxygen?: No Respiratory Effort Characteristics: Dyspnea exertion Cough: Productive Sputum Amount: Small Sputum Color: White Appetite: Poor (drinking plenty of water and fluids.) What diet do you follow at home?: regular Nausea/Vomiting: Yes (gets nauseated sometimes . Took antiemetic this am and denies nausea now. Novomiting today.) Abdomen: Soft Diarrhea: No Constipation: Yes (uses dolculax every other day.) Last BM Date: 10/02/24 Skin Condition/Temp: Warm, Dry Swelling: No Additional Notes: Here for treatment. Did not see MD. Encounter Vitals BP: 106/72 (10/03/2024 8:17 AM) Pulse: 80 (10/03/2024 8:17 AM) Resp: 18 (10/03/2024 8:17 AM) Temp: 36.5 ??C (97.7 ??F) (10/03/2024 8:17 AM) Temp src: Oral (10/03/2024 8:17 AM) SpO2: 98 % (10/03/2024 8:17 AM) Weight: 91 kg (200 lb 9.9 oz) (10/03/2024 8:17 AM) Pain Score: 0 - No pain Treatment Patient: met treatment parameters Pre blood return: Brisk Josafat Branch Umesh tolerated treatment well. No reaction noted. Patient was frequently observed and monitored throughout the administration of their treatment. Additional Notes: AVS printed and given to pt. Post blood return: Brisk IV access post infusion: NS Patient Education Treatment Education: Information/teaching given to patient including process and procedure related to today's visit; to continue to drink plenty of fluids and eat small frequent meals. Response: Verbalizes understanding Discharge Plan Discharge instructions given to patient. Future appointments given and reviewed with treatment plan. Discharge Mode: Ambulatory Accompanied by: Self Discharged To: Home ERED SUGAR PULVERIZER OPERATOR documented in this encounter Plan of [...] Administer over 30 Minutes, Once, On Evette 10/03/24 at 0945, For 1 dose, Do NOT use a filter during administration. Irritant with vesicant potential. ADMINISTER BY SYRINGE PUMP ONLY - NOT IV PUSH.Indications: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) New Bag 10/03/2024 9:42 AM POWDERED SUGAR PULVERIZER OPERATOR 170 mg 68 mL/hr dexAMETHasone (DECADRON) preservative free solution 10 mg 10 mg, intravenous, Administer over 2 Minutes, Once, On Evette 10/03/24 at 0915, For 1 doseIndications: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) Given 10/03/2024 9:05 AM POWDERED SUGAR PULVERIZER OPERATOR 10 mg sodium chloride 0.9% infusion 20 mL/hr, intravenous, As needed, As needed as back up fluid for infusions, Starting on Evette 10/03/24 at 0837Indications: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) New Bag 10/03/2024 8:28 AM POWDERED SUGAR PULVERIZER OPERATOR 20 mL/hr 20 mL/hr documented in this encounter Orders Nursing Count Last Ordered Date First Orde red Date ONCBCN TREATMENT PARAMETERS 1 1 10/03/2024 Appointment Requests Count Last Ordered Date Fi rst Ordered Date ONCBCN RETURN CHEMO 1.5HRS 1 10/03/2024 documented in this encounter Care Teams Lightning Rod Installer Relationship Specialty Start Date End Date Matthew Mccabe MD [address] [place] [address] PCP - General Family Medicine 05/13/24 Stan Meza MD [address] [facility] IM MEDICAL ONCOLOGY, [address] [place] [address] Medical Oncologist/Installation And Service Technician Medical Oncology 06/28/24 documented as of this encounter
--- OUTSIDE RECORDS SUMMARY | 2024-10-30 07:03 | XMS_ITS | Encounter Summary ---
Author Organization [facility] Healthcare Address [address] [place] [address] Care Team Providers Care Director Workforce Management Name Role Phone Matthew Mccabe MD Primary Care Prov ider Stan Meza MD Unavailable [phone] Encounter Details Date Type Department Care Team (Late st Contact Info) Description 08/12/2024 8:00 PM CDT - 08/12/2024 11:59 PM CDT Hospital Encounter [facility] Radiation Oncology [address] [facility] Advanced Medicine [facility] [place] [address] Jeffrey Ham MD [address] [facility] [address] [place] [address] Discharge Disposition: Discharge to home or self [...] making you feel afraid or unsafe? 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 Gender Identity Not on file Sexual [...] puffs every 6 (six) hours as needed 06/03/2019 alfuzosin ER (UROXATRAL) 10 mg 24 hr tablet Take 1 tablet (10 mg total) by mouth daily aspirin 81 mg chewable tablet Take 1 tablet (81 mg total) by mouth daily 02/13/2023 atorvastatin (LIPITOR) 40 mg tablet Take 1 tablet (40 mg total) by mouth daily busPIRone (BUSPAR) 7.5 mg tablet Take 1 tablet (7.5 mg total) by mouth 2 (two) times a day carvediloL (COREG) 12.5 mg tablet Take 1 tablet (12.5 mg total) by mouth 2 (two) times a day with meals 01/29/2024 cholecalciferol (VITAMIN D-3) 2000 unit capsule 02/21/2024 eplerenone (INSPRA) 25 mg tablet Take 1 tablet (25 mg total) by mouth daily 01/29/2024 lamoTRIgine (LaMICtal) 100 mg tablet Take 1 tablet (100 mg total) by mouth 2 (two) times a day latanoprost (XALATAN) 0.005 % ophthalmic solution 1 drop nightly 01/25/2019 losartan (COZAAR) 50 mg tablet Take 1 tablet (50 mg total) by mouth daily 05/27/2024 mirtazapine (REMERON) 7.5 mg tablet daily 07/17/2024 nicotine (NICODERM CQ) [address] 1 patch on the skin daily Has but isn't currently using 11/06/2017 nicotine polacrilex (NICORETTE) 4 mg gum Take 1 each (4 mg total) by mouth as needed Has but not currently using 01/19/2022 omeprazole (PriLOSEC) 40 mg capsule Take 1 capsule (40 mg total) by mouth daily before breakfast 05/14/2019 Symbicort 160-4.5 mcg/actuation inhaler Inhale 2 puffs daily 08/29/2023 triamcinolone (KENALOG) 0.1 % cream Apply topically 2 (two) times a day 08/16/2019 varenicline tartrate (CHANTIX) 1 mg tablet Take 1 tablet (1 mg total) by mouth 2 (two) times a day Has but not currently taking 05/30/2023 ziprasidone (GEODON) 80 mg capsule Take 1 capsule (80 mg total) by mouth 2 (two) times a day with meals dexAMETHasone (DECADRON) 4 mg tablet Take 1 tablet (4 mg total) by mouth daily with breakfast 30 tablet 08/01/2024 4 oxyCODONE (ROXICODONE) 5 mg immediate release tabletIndication s:Pain,cancer related pain Take 1-2 tablets (5-10 mg total) by mouth every 4 (four) hours as needed for pain 120 tablet 08/01/2024 4 traMADoL (ULTRAM) 50 mg tablet Take 1 tablet (50 mg total) by mouth 2 (two) times a day 05/06/2024 4 documented as of this encounter Discharge Disposition Disposition Code Departure Means Destination Discharge to home or self care documented in this encounter Plan of Treatment Not on file documented as of this encounter Visit Diagnoses Not on filedocumented in this encounter Care Teams Director Workforce Management Relationship Specialty Start Date End Date Matthew Mccabe MD [address] [place] [address] PCP - General Family Medicine 05/13/24 Stan Meza MD [address] [facility] DIV MEDICAL ONCOLOGY, [address] [place] [address] Medical Oncologist/Facilities Plant Engineer Medical Oncology 06/28/24 documented as of this encounter
--- OUTSIDE RECORDS SUMMARY | 2024-10-30 07:03 | XMS_ITS | Encounter Summary ---
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 Gender Identity Not on file Sexual Orientation Not on file documented as of this encounter Plan of Treatment Not on file documented as of this encounter Procedures Procedure Name Priority Date/Time Associated Diagnosis Comments RAD ONC ARIA SESSION SUMMARY 08/12/2024 4:02 PM CDT documented in this encounter Results * RAD ONC ARIA SESSION SUMMARY (08/12/2024 [...] RADIATION ONCOLOGY ORD ERABLES Final Result ARIA documented in this encounter Visit Diagnoses Not on filedocumented in this encounter Care Teams Full Stack Java Developer Relationship Specialty Start Date End Date Matthew Mccabe MD [address] [place] [address] PCP - General Family Medicine 05/13/24 Stan Meza MD [address] [facility] [address] IM MEDICAL ONCOLOGY, [address] [place] [address] Medical Oncologist/Tailoring Teacher Medical Oncology 06/28/24 documented as of this encounter
--- OUTSIDE RECORDS SUMMARY | 2024-10-30 07:03 | XMS_ITS | Encounter Summary ---
Author Organization [facility] Healthcare Address [address] [place] [address] Care Team Providers Care Anatomy Professor Name Role Phone Matthew Mccabe MD Primary Care Prov ider Stan Meza MD Unavailable [phone] Encounter Details Date Type Department Care Team (Late st Contact Info) Description 08/29/2024 Telephone 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 Patient states currently in ER. Patient will reach out to reschedule after completing electronic consent/intake forms. 08/29/24 documented in this encounter Plan of Treatment Not on file documented as of this encounter Visit Diagnoses Not on filedocumented in this encounter Additional Health Concerns Infection Onset Date Last Indicated Resolved Time COVID: Suspected 08/29/2024 08/29/2024 08/29/2024 1:59 PM CDT documented as of this encounter Care Teams Anatomy Professor Relationship Specialty Start Date End Date Matthew Mccabe MD [address] [place] [address] PCP - General Family Medicine 05/13/24 Stan Meza MD [address] [facility] MEDICAL ONCOLOGY, [address] [place] [address] Medical Oncologist/Microfilm Technician Medical Oncology 06/28/24 documented as of this encounter
--- OUTSIDE RECORDS SUMMARY | 2024-10-30 07:03 | XMS_ITS | Encounter Summary ---
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 SERVICE REPRESENTATIVE Gender Identity Not on file Sexual Orientation Not on file documented as of this encounter Plan of Treatment Not on file documented as of this encounter Procedures Procedure Name Priority Date/Time Associated Diagnosis Comments RAD ONC ARIA SESSION SUMMARY 08/15/2024 12:13 PM CDT documented in this encounter Results * RAD ONC ARIA SESSION SUMMARY (08/15/2024 [...] on filedocumented in this encounter Care Teams President [employer] Relationship Specialty Start Date End Date Matthew Mccabe MD [address] [place] [address] PCP - General Family Medicine 05/13/24 Stan Meza MD [address] [facility] DIV IM MEDICAL ONCOLOGY, [address] [place] [address] Medical Oncologist/Railroad Crane Operator Medical Oncology 06/28/24 documented as of this encounter
--- OUTSIDE RECORDS SUMMARY | 2024-10-30 07:03 | XMS_ITS | Encounter Summary ---
Author Organization [facility] Address [address] [place] [address] Phone Care Team Providers Care Meringuer Name Role Phone Matthew Mccabe MD Primary Care Prov ider Stan Meza MD Unavailable [phone] Encounter Details Date Type Department Care Team (Late st Contact Info) Description 09/02/2024 Social Work [facility] Oncology [facility] Floor [address] [place] [address] Sarah Brunner, LAURIE Social History [...] on file Legal Sex Male 6:04 PM PROGRAM CONSULTANT Gender Identity Not on file Sexual Orientation Not on file documented as of this encounter Progress Notes * Sarah Brunner LCSW - 09/02/2024 11:59 PM CST ANGELES Postage Machine Operator Brief Intervention Social Work Follow-Up Note: Transportation Assistance A referral was completed to: [place] Medicaid Transportation ([phone]). Transportation has been arranged for: DATE: 09/05 PICK-UP TIME: 630a PICK-UP TIME FOR RETURN TRIP: Will call TRIP NUMBER: [id number] CONTACT TELEPHONE #: [phone] RAM CONSULTANT documented in this encounter Plan of Treatment Not on file documented as of this encounter Visit Diagnoses Not on filedocumented in this encounter Care Teams Meringuer Relationship Specialty Start Date End Date Matthew Mccabe MD [address] [place] [address] PCP - General Family Medicine 05/13/24 Stan Meza MD [address] [facility] MEDICAL ONCOLOGY, [address] [place] [address] Medical Oncologist/Lining Presser Medical Oncology 06/28/24 documented as of this encounter
--- OUTSIDE RECORDS SUMMARY | 2024-10-30 07:03 | XMS_ITS | Encounter Summary ---
Author Organization [facility] Healthcare Address [address] [place] [address] Care Team Providers Care Community Resource Officer Name Role Phone Matthew Mccabe MD Primary Care Prov ider Stan Meza MD Unavailable [phone] Encounter Details Date Type Department Care Team (Late st Contact Info) Description 08/19/2024 Orders Only RAD ONC TREATMENTS Miscellaneous, [...] on file Legal Sex Male 6:04 PM ASSISTANT DIRECTOR Gender Identity Not on file Sexual Orientation Not on file documented as of this encounter Plan of Treatment Not on file documented as of this encounter Procedures Procedure Name Priority Date/Time Associated Diagnosis Comments RAD ONC ARIA COURSE SUMMARY 08/19/2024 11:14 AM CDT documented in this encounter Results * RAD ONC ARIA COURSE SUMMARY (08/19/2024 [...] on filedocumented in this encounter Care Teams Community Resource Officer Relationship Specialty Start Date End Date Matthew Mccabe MD [address] [place] [address] PCP - General Family Medicine 05/13/24 Stan Meza MD [address] [facility] DIV IM MEDICAL ONCOLOGY, [address] [place] [address] Medical Oncologist/Pulp Drier Medical Oncology 06/28/24 documented as of this encounter
--- OUTSIDE RECORDS SUMMARY | 2024-10-30 07:03 | XMS_ITS | Encounter Summary ---
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 Gender Identity Not on file Sexual Orientation Not on file documented as of this encounter Plan of Treatment Not on file documented as of this encounter Procedures Procedure Name Priority Date/Time Associated Diagnosis Comments RAD ONC ARIA SESSION SUMMARY 08/13/2024 8:57 AM CDT documented in this encounter Results * RAD ONC ARIA SESSION SUMMARY (08/13/2024 [...] on filedocumented in this encounter Care Teams Receiving Barn Custodian Relationship Specialty Start Date End Date Matthew Mccabe MD [address] [place] [address] PCP - General Family Medicine 05/13/24 Stan Meza MD [address] [facility] DIV IM MEDICAL ONCOLOGY, [address] [place] [address] Medical Oncologist/Reinforced Ironworker Medical Oncology 06/28/24 documented as of this encounter
--- OUTSIDE RECORDS SUMMARY | 2024-10-30 07:03 | XMS_ITS | Encounter Summary ---
Author Organization [facility] Address [address] [place] [address] Phone Care Team Providers Care School Guard Name Role Phone Matthew Mccabe MD Primary Care Prov ider Stan Meza MD Unavailable [phone] Reason for Visit * Oncology (Routine) - Authorized Specialty Diagnoses / Procedures Referred By Contac t Referred To Contact Oncology Diagnoses Malignant neoplasm of lung, unspecified laterality, unspecified part of lung (HCC) Manjit Corrales Chi, MD [address] [place] [address] Phone: tel: fax: [facility] Oncology [address] [facility] Advanced [facility] 7th [place] [address] [place] [address] Phone: tel: fax: Referral ID Status Reason Start Date Expiration Date Visits Requested Visits Authorized [id number] Authorized Specialty Services Required 06/28/2024 07/28/2025 99 99 Encounter Details Date Type Department Care Team (Late st Contact Info) Description 08/29/2024 11:00 AM CDT Office Visit [facility] Oncology [address] [facility] Floor 5 [place] [address] Stan Meza MD [address] [place] [address] Primary cancer of left lower lobe of [...] on file 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 Gender Identity Not on file Sexual Orientation Not on file documented as of this encounter Last Filed Vital Signs Vital Sign Reading Time Taken Comments Blood Pressure 109/71 08/29/2024 10:00 AM CDT Pulse 60 08/29/2024 10:00 AM CDT Temperature 36.4 ??C (97.5 ??F) 08/29/2024 10:00 AM C DT Respiratory Rate 19 08/29/2024 10:00 AM CDT Oxygen Saturation 97% 08/29/2024 10:00 AM CDT Inhaled Oxygen Concentration - - Weight 93.1 kg (205 lb 3.2 oz) 08/29/2024 10:00 AM CDT Height - - Body Mass Index 32.21 08/22/2024 1:00 PM CDT documented in this encounter Progress Notes * Shari Quintana, LE - 08/29/2024 11:00 AM CDT Images from the original note were not included. Oncology Progress Note Josafat Calvo 1960 08/29/2024 Stan Meza MD Diagnosis: Poorly differentiated non-small cell lung cancer Stage IV Diagnosed 06/19/24 PD-L1 = Quantity not sufficient Genomics Elora Sequencing: Quantity not sufficient G360 History of [...] A, chromogranin, and synaptophysin. Patient came to [facility] on 07/18/24 for further management. Treatment History: Palliative radiation to the sternum and sacrum (2,000 cGy) from 08/12/24 to 08/19/24 Carboplatin plus nab-paclitaxel and pembrolizumab C1D1: 08/22/24 Interval History: Mr. Calvo is a 63-year-old man with poorly differentiated non-small cell lung cancer. Patient received palliative radiation to the sacrum and sternum from 08/12/24 to 08/19/24 under the care of Dr. Jeffrey Ham. He started systemic treatment with carboplatin plus nab-paclitaxel and pembrolizumab on 08/22/24 and returns today for C1D8. He is somnolent and mildly confused throughout our conversation. Patient states he woke up this morning feeling strange . Past Medical History: Hypertension Mitral regurgitation Peripheral [...] 2 (two) times a day with meals cholecalciferol (VITAMIN D-3) 2000 unit capsule dexAMETHasone (DECADRON) 4 mg tablet Take 8 mg (2 tabs) by mouth once on Day 2, then 8 mg (2 tabs) twice daily on Days 3 and 4. 10 tablet 3 eplerenone (INSPRA) 25 mg tablet Take 1 tablet (25 mg total) by mouth daily lamoTRIgine (LaMICtal) 100 mg tablet Take 1 tablet (100 mg total) by mouth 2 (two) times a day latanoprost (XALATAN) 0.005 % ophthalmic solution 1 drop nightly losartan (COZAAR) 50 mg tablet Take 1 tablet (50 mg total) by mouth daily mirtazapine (REMERON) 7.5 mg tablet daily morphine ER (MS CONTIN) 30 mg 12 hr tablet Take 1 tablet (30 mg total) by mouth every 12 (twelve) hours 60 tablet 0 omeprazole (PriLOSEC) 40 mg capsule Take 1 [...] as needed for pain 120 tablet 0 senna-docusate (PERICOLACE) 8.6-50 mg Take 2 tablets by mouth daily 60 tablet 3 Symbicort 160-4.5 mcg/actuation inhaler Inhale 2 puffs daily triamcinolone (KENALOG) 0.1 % cream Apply topically 2 (two) times a day ziprasidone (GEODON) 80 mg capsule Take 1 capsule (80 mg total) by mouth 2 (two) times a day with meals nicotine (NICODERM CQ) [address] 1 patch on the skin daily Has but isn't currently using (Patientnot taking: Reported on 08/01/2024) nicotine polacrilex (NICORETTE) 4 mg gum Take 1 each (4 mg total) by mouth as needed Has but not currently using (Patient not taking: Reported on 08/01/2024) varenicline tartrate (CHANTIX) 1 mg tablet Take 1 tablet (1 mg total) by mouth 2 (two) times a day Has but not currently taking (Patient not taking: Reported on 07/18/2024) No current facility-administered medications for this visit. Allergies Allergen Reactions Lisinopril Anaphylaxis and Unknown Penicillins Anaphylaxis, Swelling and Unknown Review of Systems: Constitutional: Denies diaphoresis, fever, fatigue. HENT: Complains of hoarseness. Denies congestion, hearing [...] Exam: Vital Signs: Most Recent : Vitals: 08/29/24 1000 BP: 109/71 BP Location: Left arm Pulse: 60 Resp: 19 Temp: 36.4 ??C (97.5 ??F) TempSrc: Oral SpO2: 97% Weight: 93.1 kg (205 lb 3.2 oz) Constitutional: Patient is somnolent HENT: Head: Normocephalic and atraumatic. Ears: Hearing grossly intact. Mouth/Throat: Oropharynx is clear and moist. No oropharyngeal exudate. There is no thrush or ulcerations Eyes: Conjunctivae and EOM are normal. Pupils are equal, round, and reactive to light. Neck: Normal range of motion. Neck supple. No JVD present. Cardiovascular: Irregularly irregular rate and rhthm with rapid rate. Tender to palpation at the level of the 5th rib in the sternum. Tenderness over the 7-8th rib on the right chest wall. Gynecomastia present. Thickened right chest wall tissue/musculature relative to the left. Pulmonary/Chest: Effort normal. Faint expiratory wheezes in the bases. Mild rhonchi throughout. Abdominal: Soft, bowel sounds normal, no distension [...] Laboratory: Lab Results Component Value Date WBC 4.5 08/29/2024 HGB 11.4 (L) 08/29/2024 HCT 35.2 (L) 08/29/2024 MCV 81.4 08/29/2024 LABPLAT 111 (L) 08/29/2024 Lab Results Component Value Date NEUTROABS 3.8 08/29/2024 Chemistry Component Value Date/Time SODIUM 128 (L) 08/29/2024 1034 POTASSIUM 3.9 08/29/2024 1034 CHLORIDE 92 (L) 08/29/2024 1034 CO2 26 08/29/2024 1034 BUNSER 25 08/29/2024 1034 CREATININE 1.08 08/29/2024 1034 GLUCOSE 108 08/29/2024 1034 Component Value Date/Time CALCIUM 9.3 08/29/2024 1034 ALKPHOS 136 (H) 08/29/2024 1034 AST 25 08/29/2024 1034 ALT 34 08/29/2024 1034 BILITOT 0.5 08/29/2024 1034 Radiology: CT 04/17/24 MRI Brain W WO [...] carboplatin plus nab-paclitaxel and pembrolizumab on 08/22/24. Mr. Calvo has new atrial fibrillation with rapid ventricular rate on exam. He was transported via ambulance to [facility] emergency room via EMS at 1145. Plan: Hold C1D8 nab-paclitaxel today Evaluation in the [facility] emergency room RTC 11/7/24 I reviewed his symptoms requiring emergency room evaluation with his brother, Paolo, and his brother, Ravin, via telephone. Paolo should be the point of contact ([phone]). Shari Quintana, MSN, GEOTHERMAL HVAC TECHNICIAN-C, AOP Nurse Practitioner in collaboration with Dr. Stan Meza Division of Oncology [facility] documented in this encounter Plan of Treatment Not on file documented as of this encounter Results * (ABNORMAL) CBC with auto differential (09/05/2024 8:03 AM PERSONAL CARER) WBC 2.5(L) 3.8 - 9.9 K/cumm Comment:Testing performed by : [facility], [address] [place] [address] Hgb 10.8(L) 13.0 - 17.5 g/dL C[facility]ER BJ Comment:Testing performed by : [facility], [address] [place] [address] Hct 33.7(L) 38.9 - 50.3 % [facility] Comment:Testing performed by : [facility], [address] [place] [address] Plt 103(L) 150 - 400 K/cumm [facility] BJ Comment:Testing performed by : [facility], [address] [place] [address] MPV 7.1 6.8 - 10.4 fL [facility]J Comment:Testing performed by : [facility], [address] [place] [address] RBC 4.04(L) 4.30 - 5.80 M/cumm [facility] Comment:Testing performed by : [facility], [address] [place] [address] MCV 83.5 81.3 - 96.4 fL [facility] BJ Comment:Testing performed by : [facility], [address] [place] [address] MCH 26.7(L) 27.1 - 33.3 pg [facility] Comment:Testing performed by : [facility], [address] [place] [phone] MCHC 32.0(L) 32.3 - 35.7 g/dL [facility] Comment:Testing performed by : [facility], [address] [place] [phone] RDW CV 15.3(H) 11.1 - 14.9 % [facility] Comment:Testing performed by : [facility], [address] [place] [phone] NRBC abs 0.00 0.00 - 0.01 K/cumm [facility] Comment:Testing performed by : [facility], [address] [place] [phone] Blood 09/05/2024 8:03 AM PERSONAL CARER 09/05/2024 8:04 AM PERSONAL CARER us Stan Meza MD LAB BLOOD ORDERABLES Yolette l Result [facility] Department [place] [address] * (ABNORMAL) Comprehensive metabolic panel (09/05/2024 7:51 AM PERSONAL CARER) Sodium 135 135 - 145 mmol/L Potassium, pl 3.8 3.3 - 4.9 mmol/L [facility] Chloride 98 97 - 110 mmol/L [facility] CO2 29 22 - 32 mmol/L [facility] Anion gap 8 2 - 15 mmol/L [facility] BUN 5(L) 6 - 25 mg/dL [facility] Creatinine 0.72(L) 0.80 - 1.30 mg/dL [facility] Glucose 99 70 - 199 mg/dL [facility] Comment: Interpretive Data Fasting glucose >/= [...] 2022. Calcium 8.9 8.5 - 10.3 mg/dL [facility] Bilirubin, total 0.3 0.1 - 1.2 mg/dL [facility] Protein, pl 6.9 6.5 - 8.5 g/dL [facility] Albumin 3.4(L) 3.5 - 5.0 g/dL [facility] Alk phos 160(H) 40 - 130 Units/L [facility]] ALT 24 7 - 55 Units/L [facility] AST 21 10 - 50 Units/L [facility] Blood 09/05/2024 7:51 AM PERSONAL CARER 09/05/2024 8:15 AM PERSONAL CARER Stan Meza MD LAB BLOOD ORDERABLES Yolette l Result [facility] Department [place] [address] documented in this encounter Visit Diagnoses Diagnosis 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)- Primary documented in this encounter Discontinued Medications Medication Sig Discontinue Reason Start Date End Da te prochlorperazine (Compazine) 10 mg tabletIndications:Primar y cancer of left lower lobe of lung (HCC),Prophylaxis for chemotherapy-induced neutropenia Take 1 tablet (10 mg total) by mouth every 6 (six) hours as needed for nausea or vomiting Use first for nausea Other 08/15/2024 08/29/2024 documented as of this encounter Orders Appointment Requests Count Last Ordered Date Fi rst Ordered Date ONCBCN CLINIC APPOINTMENT REQUEST 2 024 08/29/2024 ONCBCN LAB APPOINTMENT 1 09/05/2024 ONCBCN RETURN CHEMO 1.5HRS 1 09/05/2024 documented in this encounter Care Teams School Guard Relationship Specialty Start Date End Date Matthew Mccabe MD [address] [place] [address] PCP - General Family Medicine 05/13/24 Stan Meza MD [address] [facility] MEDICAL ONCOLOGY, [address] [place] [address] Medical Oncologist/School Bus Driver/Mechanic Medical Oncology 06/28/24 documented as of this encounter
--- OUTSIDE RECORDS SUMMARY | 2024-10-30 07:03 | XMS_ITS | Encounter Summary ---
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 Transportation has been arranged for: DATE: 08/22 PICK-UP TIME: 10am PICK-UP TIME FOR RETURN TRIP: Will call TRIP NUMBER: [phone] CONTACT TELEPHONE #: [phone] Patient is aware of these arrangements and in agreement with plan. documented in this encounter Plan of Treatment Not on file documented as of this encounter Visit Diagnoses Not on filedocumented in this encounter Care Teams Disposal Plant Operator Relationship Specialty Start Date End Date Matthew Mccabe MD [address] [place] [address] PCP - General Family Medicine 05/13/24 Stan Meza MD [address] [facility] MEDICAL ONCOLOGY, [address] [place] [address] Medical Oncologist/Filler Room Attendant Medical Oncology 06/28/24 documented as of this encounter
--- OUTSIDE RECORDS SUMMARY | 2024-10-30 07:03 | XMS_ITS | Encounter Summary ---
Author Organization [facility] Address [address] [place] [address] Phone Care Team Providers Care Costume Draper Name Role Phone Matthew Mccabe MD Primary Care Prov ider Stan Meza MD Unavailable [phone] Encounter Details Date Type Department Care Team (Late st Contact Info) Description 08/26/2024 Telephone [facility] ([facility]) - [facility] ENT [address] [facility] 11th [place] [address] [place] [address] Alexsandra Augustine MS Social History [...] on file 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 Gender Identity Not on file Sexual Orientation Not on file documented as of this encounter Miscellaneous Notes * Telephone Encounter - Anne Marie Christy - 08/26/2024 11:01 AM CDT Patient called to reschedule his appointment documented in this encounter Plan of Treatment Not on file documented as of this encounter Visit Diagnoses Not on filedocumented in this encounter Care Teams Costume Draper Relationship Specialty Start Date End Date Matthew Mccabe MD [address] [place] [address] PCP - General Family Medicine 05/13/24 Stan Meza MD [address] [facility] MEDICAL ONCOLOGY, [address] [place] [address] Medical Oncologist/Naturopathic Oncology Provider Medical Oncology 06/28/24 documented as of this encounter
--- OUTSIDE RECORDS SUMMARY | 2024-10-30 07:03 | XMS_ITS | Encounter Summary ---
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 Pt receiving palliative RT to sternum and sacrum. Referral for weight loss and Ensure Plus. Weight: Wt Readings from Last 10 Encounters: 08/01/24 97.5 kg (215 lb) 08/01/24 97.7 kg (215 lb 6.4 oz) 07/18/24 99.3 kg (219 lb) 06/19/24 102.1 kg (225 lb) 05/28/24 101.2 kg (223 lb) Estimated body mass index is 34.7 kg/m?? as calculated from the following: Height as of 08/01/24: 167.6 cm (5' 6 ). Weight as of 08/01/24: 97.5 kg (215 lb). [place] body weight: 63.8 kg (140 lb 10.5 oz) Adjusted ideal body weight: 77.3 kg (170 lb 6.3 oz) Estimated Energy Needs: Based on: 97.5 kg Calories 4723-4794 kcal/day 20-22 kcal/kg Protein 98 g/day 1 g/kg Fluid 64 oz/day or Per MD Impression: Assessment completed via phone. Noted 10# weight loss (4.4% BW) x 1.5 months. Pt reported that is result of poor appetite. Sometimes only eats one time per day. Yesterday had peanut butter and jelly sandwich. Interested in Ensure Plus. Pt denied chewing or swallowing issues. Noted no mouth sores or taste changes. Denied n/v/d/c. Intervention: - Reviewed increased needs for protein during treatment. - Discussed desire for weight maintenance. - Encouraged small and frequent meals when appetite is poor. - Reviewed protein sources and encouraged one at all meals. - Suggested adding calories to meals without increasing volume. Provided handout of examples. - Reviewed easy to prepare snacks and provided handout of examples. - Registered pt for Ensure Plus through [facility] for 3 cases x 3 months. Voucher provided to [facility] to give to pt at [facility]. - Encouraged fluid intake. - Recommended Ensure Plus BID. John Wilson RD, MANAGER MOBILITY, LDN [phone] documented in this encounter Plan of Treatment Not on file documented as of this encounter Visit Diagnoses Not on filedocumented in this encounter Care Teams Screen Repairer Crusher Relationship Specialty Start Date End Date Matthew Mccabe MD [address] [place] [address] PCP - General Family Medicine 05/13/24 Stan Meza MD [address] [facility] MEDICAL ONCOLOGY, [address] [place] [address] Medical Oncologist/Recreational Aide Medical Oncology 06/28/24 documented as of this encounter
--- OUTSIDE RECORDS SUMMARY | 2024-10-30 07:03 | XMS_ITS | Encounter Summary ---
Author Organization [facility] Address [address] [place] [address] Phone Care Team Providers Care Transport Driver Name Role Phone Matthew Mccabe MD Primary Care Prov ider Stan Meza MD Unavailable [phone] Reason for Referral * Consultation (Routine) - Pending Review Specialty Diagnoses / Procedures Referred By Contac t Referred To Contact Palliative Care Diagnoses 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) Stan Meza MD [address] [place] [address] Phone: tel: fax: [facility] Palliative Care [address] [place] [address] Phone: tel: fax: Referral ID Status Reason Start Date Expiration Date Visits Requested Visits Authorized [id number] Pending Review Specialty Services Required 4 09/14/2025 1 1 Question Answer Have you personally discussed this referral with the patient or significant other? Yes Person to contact regarding appointment? Patient Patient's Current Location? outpatient Reason for Referral Pain and symptom management Urgency Severe physical or psychosocial symptoms Please select the performing region: [facility] [[id number]] Please select the performing department: [facility] [[id number]] To provider: ALEXEI CRENSHAW [[id number]] # of visits: 1 Reason for Visit * Oncology (Routine) - Authorized Specialty Diagnoses / Procedures Referred By Contac t Referred To Contact Oncology Diagnoses Malignant neoplasm of lung, unspecified laterality, unspecified part of lung (HCC) Manjit Corrales Chi, MD [address] [place] [address] Phone: tel: fax: [facility] Oncology [address] [facility] 7th [place] [address] [place] [address] Phone: tel: fax: Referral ID Status Reason Start Date Expiration Date Visits Requested Visits Authorized [id number] Authorized Specialty Services Required 06/28/2024 07/28/2025 99 99 Encounter Details Date Type Department Care Team (Late st Contact Info) Description 08/15/2024 8:00 AM CDT Office Visit [facility] Oncology [address] [facility] Floor [address] [place] [id number] Stan Meza MD [address] [place] [address] 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) (Primary Dx); Prophylaxis for chemotherapy-induced neutropenia Social History Tobacco Use Types Packs/Day Years [...] on file 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 Gender Identity Not on file Sexual Orientation Not on file documented as of this encounter Last Filed Vital Signs Vital Sign Reading Time Taken Comments Blood Pressure 149/98 08/15/2024 7:59 AM CDT Pulse 86 08/15/2024 7:58 AM CDT Temperature 36.4 ??C (97.6 ??F) 08/15/2024 7:58 AM CD T Respiratory Rate 19 08/15/2024 7:58 AM CDT Oxygen Saturation 99% 08/15/2024 7:58 AM CDT Inhaled Oxygen Concentration - - Weight 98.6 kg (217 lb 6.4 oz) 08/15/2024 7:58 A M CDT Height - - Body Mass Index 35.09 08/01/2024 9:50 AM CDT documented in this encounter Ordered Prescriptions Prescription Sig Dispense Quantity Refills Last Filled Start Date End Date senna-docusate (PERICOLACE) 8.6-50 mgIndications:con stipation Take 2 tablets by mouth daily 60 tablet 3 4 ondansetron (ZOFRAN) 8 mg tabletIndications :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),Prophylaxis for chemotherapy-ashley kristine neutropenia Take 1 tablet (8 mg total) by mouth every 8 (eight) hours as needed for nausea or vomiting Use if prochlorperazine does not stop nausea 24 tablet 3 4 folic acid (FOLVITE) 1 mg tabletIndications :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),Prophylaxis for chemotherapy-ashley kristine neutropenia Take 1 tablet by mouth daily starting 7 days before the first treatment and continuing until 21 days after the last pemetrexed treatment 30 tablet 5 4 08/20/20 24 prochlorperazine (Compazine) 10 mg tabletIndications :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),Prophylaxis for chemotherapy-ashley kristine neutropenia Take 1 tablet (10 mg total) by mouth every 6 (six) hours as needed for nausea or vomiting Use first for nausea 120 tablet 3 4 08/29/20 24 dexAMETHasone (DECADRON) 4 mg tabletIndications :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),Prophylaxis for chemotherapy-ashley kristine neutropenia Take 2 tablets (8 mg) by mouth daily with breakfast for 5 days starting the day prior to each treatment cycle. 10 tablet 5 4 08/20/20 documented in this encounter Progress Notes * Shari Quintana, DOUGH BRAKE MACHINE OPERATOR - 08/15/2024 8:00 AM CDT Images from the original note were not included. Oncology Progress Note Josafat Calvo 1960 08/15/2024 Stan Meza MD Diagnosis: Poorly differentiated non-small cell lung cancer Stage IV Diagnosed 06/19/24 PD-L1 = quantity not sufficient [employer] [place] Sequencing: quantity not sufficient G360 History of Present Illness: [...] A, chromogranin, and synaptophysin. Patient came to [facility] on 07/18/24 for further management. Treatment History: Palliative radiation to the sternum and sacrum starting on 08/12/24 Interval History: Mr. Calvo is a 63-year-old man with poorly differentiated non-small cell lung cancer. Following the last office visit, he established care with Dr. Jeffrey Ham and started palliative radiation to the sacrum and sternum. He returns today for follow up. The current pain regimen includes oxycodone every four hours and 4 mg of dexamethasone daily. He has been taking 10 mg of oxycodone every four hours jyilin-sxr-ytyor with minimal relief. Patient has also been taking 1000 mg of acetaminophen twice daily. He currently rates pain in the sternum 8/10 in intensity; he is in the middle of palliative radiation. Past Medical History: Hypertension Mitral regurgitation Peripheral vascular disease COPD Glaucoma Hypertension Right knee replacement Personal History: Patient is single, has three children, smokes 1 pack of cigarettes per day for 40 years and drinks alcohol socially. Family History: Mother had colon cancer and [...] by mouth daily with breakfast 30 tablet 0 eplerenone (INSPRA) 25 mg tablet Take 1 tablet (25 mg total) by mouth daily lamoTRIgine (LaMICtal) 100 mg tablet Take 1 tablet (100 mg total) by mouth 2 (two) times a day latanoprost (XALATAN) 0.005 % ophthalmic solution 1 drop nightly losartan (COZAAR) 50 mg tablet Take 1 tablet (50 mg total) by mouth daily mirtazapine (REMERON) 7.5 mg tablet daily omeprazole (PriLOSEC) 40 mg capsule Take 1 capsule (40 mg total) by mouth daily before breakfast oxyCODONE (ROXICODONE) 5 mg immediate release tablet Take 1-2 tablets (5-10 mg total) by mouth every 4 (four) hours as needed for pain 120 tablet 0 Symbicort 160-4.5 mcg/actuation inhaler Inhale 2 puffs daily triamcinolone (KENALOG) 0.1 % cream Apply topically 2 (two) times a day ziprasidone (GEODON) 80 mg capsule Take 1 capsule (80 mg total) by mouth 2 (two) times a day with meals cholecalciferol (VITAMIN D-3) 2000 unit capsule TAKE 1 CAPSULE BY MOUTH EVERY DAY FOR 30 DAYS (Patient not taking: Reported on 08/01/2024) nicotine (NICODERM CQ) [address] 1 [...] Systems: Constitutional: Denies diaphoresis, fever, fatigue. HENT: Denies congestion, hearing loss and sore throat. Eyes: Denies blurred vision and pain. Respiratory: Complaints of shortness of breath, cough, sputum production and hemoptysis. Cardiovascular: Complains of significant chest pain, Denies palpitations Gastrointestinal: Denies abdominal pain, constipation, diarrhea, heartburn, nausea and vomiting. Genitourinary: Denies dysuria, flank pain, frequency and urgency. Musculoskeletal: Complains of diffuse pain, most pronounced in the low back and sternum. Skin: Denies itching and rash. Extremities: Denies edema. Neurological: Denies dizziness, focal weakness and headaches. Psychiatric/Behavioral: Complains of insomnia Denies depression, memory loss, and suicidal ideas. ECOG performance status 1 Physical Exam: Vital Signs: Most Recent : Vitals: 08/15/24 0758 08/15/24 0759 BP: 159/98 149/98 BP Location: Right arm Left arm Pulse: 86 Resp: 19 Temp: 36.4 ??C (97.6 ??F) TempSrc: Oral SpO2: 99% Weight: 98.6 kg (217 lb 6.4 oz) Constitutional: Patient is well-nourished, and in no distress. HENT: Head: Normocephalic and atraumatic. Ears: Hearing grossly intact. Mouth/Throat: Oropharynx is clear and moist. No oropharyngeal exudate. There is no thrush or ulcerations Eyes: Conjunctivae and EOM are normal. Pupils are equal, round, and reactive to light. Neck: Normal range of motion. Neck supple. No JVD present. Cardiovascular: Normal rate, regular rhythm, no gallops or murmurs. Tender to palpation at the level of the 5th rib in the sternum. Tenderness over the 7-8th rib on the right chest wall. Gynecomastiapresent. Thickened right chest wall tissue/musculature relative to [...] Laboratory: Lab Results Component Value Date WBC 12.7 (H) 08/15/2024 HGB 12.3 (L) 08/15/2024 HCT 38.3 (L) 08/15/2024 MCV 84.1 08/15/2024 LABPLAT 341 08/15/2024 Lab Results Component Value Date NEUTROABS 9.6 (H) 08/15/2024 Chemistry Component Value Date/Time SODIUM 133 (L) 08/15/2024 0645 POTASSIUM 4.5 08/15/2024 0645 CHLORIDE 98 08/15/2024 0645 CO2 29 08/15/2024 0645 BUNSER 8 08/15/2024 0645 CREATININE 0.71 (L) 08/15/2024 0645 GLUCOSE 98 08/15/2024 0645 Component Value Date/Time CALCIUM 9.5 08/15/2024 0645 ALKPHOS 163 (H) 08/15/2024 0645 AST 22 08/15/2024 0645 ALT 36 08/15/2024 0645 BILITOT 0.4 08/15/2024 0645 Radiology: CT 04/17/24 MRI Brain W WO [...] disease, with metastases to multiple lymph nodes, osseous lesions, and a soft tissue lesion around the sacral spine and brain MRI the same day was negative for intracranial metastases. Patient has started palliative radiation and should return in one week to start systemic treatment.Pain is poorly managed, and patient is aware I am hopeful this improves after radiation. In the meantime, he requires adjustments to pain medications. I recommended extended release morphine twice daily while continuing oxycodone and acetaminophen. I also recommended wjnl-vvw-anmleiq topical lidoderm patch. Patient is aware of the increased risk of constipation. Lastly, he will be referred to with [facility] palliative medicine for further assistance. Plan: Continue radiation as scheduled Continue oxycodone and dexamethasone Start extended release morphine twice daily Vnji-zhx-jzyfmah lidoderm patches Referral to Palliative Medicine RTC 08/22/24 to start carboplatin plus pemetrexed and pembrolizumab He will call us in the interim for any questions, concerns, or worsening symptoms. He is agreeable with this plan of care. Shari Quintana, MSN, DOUGH BRAKE MACHINE OPERATOR-C, AOCNP Nurse Practitioner in collaboration with Dr. Stan Meza Division of Oncology [facility] Cosigned by Stan Meza MD at 09/09/2024 1:41 PM STORE ADMINISTRATIVE ASSISTANT E ADMINISTRATIVE ASSISTANT documented in this encounter Miscellaneous Notes * Addendum Note - Andrea Hernandes RN - 08/15/2024 8:00 AM CDTAddended by: ANDREA HERNANDES on: 08/15/2024 08:40 AM Modules accepted: Orders * Addendum Note - Andrea Hernandes RN - 08/15/2024 8:00 AM CDTAddended by: ANDREA HERNANDES on: 08/15/2024 09:41 AM Modules accepted: Orders documented in this encounter Plan of Treatment Scheduled Referrals Name Type Priority Associated Diagnoses Order Schedule Ambulatory referral to Palliative Care Outpatient Referral Routine 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) Expected: 08/22/2024 (Approximate), Expires: 08/15/2025 documented as of this encounter Visit Diagnoses Diagnosis 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)- Primary Prophylaxis for chemotherapy-induced neutropenia documented in this encounter Discontinued Medications Medication Sig Discontinue Reason Start Date End Da te traMADoL (ULTRAM) 50 mg tablet Take 1 tablet (50 mg total) by mouth 2 (two) times a day Alternate therapy 05/06/2024 08/15/2024 documented as of this encounter Orders Nursing Count Last Ordered Date First Orde red Date ONCBCN NURSING COMMUNICATION [id number] 1 07/30 Consult Count Last Ordered Date First Orde red Date ANCILLARY ONCOLOGY SERVICES REQUEST 1 08/15 Appointment Requests Count Last Ordered Date Fi rst Ordered Date ONCBCN CLINIC APPOINTMENT REQUEST 1 024 documented in this encounter Care Teams Transport Driver Relationship Specialty Start Date End Date Matthew Mccabe MD [address] [place] [address] PCP - General Family Medicine 05/13/24 Stan Meza MD [address] [facility] MEDICAL ONCOLOGY, [address] [place] [address] Medical Oncologist/E Marketing Specialist Medical Oncology 06/28/24 documented as of this encounter
--- OUTSIDE RECORDS SUMMARY | 2024-10-30 07:03 | XMS_ITS | Encounter Summary ---
Author Organization [facility] Address [address] [place] [address] Phone Care Team Providers Care Medical Lab Tech Instructor Name Role Phone Matthew Mccabe MD Primary Care Prov ider Stan Meza MD Unavailable [phone] Reason for Visit * Reason Onset Date Comments Prior Auth 08/30/2024 Encounter Details Date Type Department Care Team (Late st Contact Info) Description 08/30/2024 Documentation [facility] Oncology [address] [place] [address] Sasha Hernandes RN Prior Auth Social History Tobacco Use Types Packs/Day Years [...] on file 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 Call placed to [facility] at [phone]. Maldonado [id number] for Cover My Meds. PA request completed, return information states that PA is not required. Call placed to [facility], confirmed that it has processed with no copay required. documented in this encounter Plan of Treatment Not on file documented as of this encounter Visit Diagnoses Not on filedocumented in this encounter Care Teams Medical Lab Tech Instructor Relationship Specialty Start Date End Date Matthew Mccabe MD [address] [place] [address] PCP - General Family Medicine 05/13/24 Stan Meza MD [address] [facility] MEDICAL ONCOLOGY, [address] [place] [address] Medical Oncologist/Cte Teacher Medical Oncology 06/28/24 documented as of this encounter
--- OUTSIDE RECORDS SUMMARY | 2024-10-30 07:03 | XMS_ITS | Encounter Summary ---
Author Organization [facility] Address [address] [place] [address] Phone Care Team Providers Care Inpatient Pharmacist Name Role Phone Matthew Mccabe MD Primary Care Prov ider Stan Meza MD Unavailable [phone] Reason for Visit * Episode Based Medications (Routine) - Authorized Specialty Diagnoses / Procedures Referred By Contac t Referred To Contact Diagnoses 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) Stan Meza MD [address] [place] [address] Phone: tel: fax: [facility] [place] [facility] In[facility] [address] [facility] [place] [place] [address] [place] [address] Referral ID Status Reason Start Date Expiration Date V isits Requested Visits Authorized [id number] Authorized 08/20/2024 02/06/2025 1 50 Encounter Details Date Type Department Care Team (Late st Contact Info) Description 09/05/2024 8:40 AM WILDLIFE REFUGE MANAGER Office Visit [facility] Oncology [address] [facility] Floor [address] [place] [address] Stan Meza MD [address] [place] [address] Primary cancer of left lower lobe of [...] on file Legal Sex Male 6:04 PM 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 MANAGER Gender Identity Not on file Sexual Orientation Not on file documented as of this encounter Last Filed Vital Signs Vital Sign Reading Time Taken Comments Blood Pressure 110/72 09/05/2024 8:00 AM WILDLIFE REFUGE MANAGER Pulse 86 09/05/2024 8:00 AM WILDLIFE REFUGE MANAGER Temperature 36.7 ??C (98.1 ??F) 09/05/2024 8:00 AM CS T Respiratory Rate 19 09/05/2024 8:00 AM WILDLIFE REFUGE MANAGER Oxygen Saturation 97% 09/05/2024 8:00 AM WILDLIFE REFUGE MANAGER Inhaled Oxygen Concentration - - Weight 92.4 kg (203 lb 9.6 oz) 09/05/2024 8:00 A M WILDLIFE REFUGE MANAGER Height - - Body Mass Index 32.86 08/29/2024 12:07 PM CDT documented in this encounter Progress Notes * Chu Mesa PA - 09/05/2024 8:40 AM CST Images from the original note were not included. Oncology Progress Note Josafat Calvo 1960 09/02/2024 Stan Meza MD Diagnosis: Poorly differentiated non-small cell lung cancer Stage IV Diagnosed 06/19/24 PD-L1 = Quantity not sufficient [employer] [place] Sequencing: Quantity not sufficient G360 History of [...] A, chromogranin, and synaptophysin. Patient came to [facility] on 07/18/24 for further management. Treatment History: [...] plus nab-paclitaxel and pembrolizumab on 08/22/24 and had to be evaluated in the emergency room on 08/29/24 due to atrial fibrillation with rapid ventricular response. He was recommended admission but left against medical advise after receiving metoprolol and apixaban. He has not been able to fill his prescriptions yet due to insurance issues. He is due to see cardiology this afternoon at 230pm. Patient returns today for C1D8 and has no new complaints. Past Medical History: Hypertension Mitral regurgitation Peripheral [...] using (Patient not taking: Reported on 08/01/2024) omeprazole (PriLOSEC) 40 mg capsule Take 1 [...] taking (Patient not taking: Reported on 07/18/2024) ziprasidone (GEODON) 80 mg capsule Take 1 capsule (80 mg total) by mouth 2 (two) times a day with meals No current facility-administered medications for this visit. [...] Exam: Vital Signs: Most Recent : Vitals: 09/05/24 0800 BP: 110/72 BP Location: Left arm Pulse: 86 Resp: 19 Temp: 36.7 ??C (98.1 ??F) TempSrc: Oral SpO2: 97% Weight: 92.4 kg (203 lb 9.6 oz) Constitutional: Patient is somnolent HENT: Head: Normocephalic and atraumatic. Ears: Hearing grossly intact. Mouth/Throat: Oropharynx is clear and moist. No oropharyngeal exudate. There is no thrush or ulcerations Eyes: Conjunctivae and EOM are normal. Pupils are equal, round, and reactive to light. Neck: Normal range of motion. Neck supple. No JVD present. Cardiovascular: Irregularly irregular rate and rhthm with regular rate. Tender to palpation at the level of the 5th rib in the sternum. Tenderness over the 7- 8th rib on the right chest wall. Gynecomastia [...] Laboratory: Lab Results Component Value Date WBC 2.5 (L) 09/05/2024 HGB 10.8 (L) 09/05/2024 HCT 33.7 (L) 09/05/2024 MCV 83.5 09/05/2024 LABPLAT 103 (L) 09/05/2024 Lab Results Component Value Date NEUTROABS 1.6 09/05/2024 Chemistry Component Value Date/Time SODIUM 135 09/05/2024 0751 POTASSIUM 3.8 09/05/2024 0751 CHLORIDE 98 09/05/2024 0751 CO2 29 09/05/2024 0751 BUNSER 5 (L) 09/05/2024 0751 CREATININE 0.72 (L) 09/05/2024 0751 GLUCOSE 99 09/05/2024 0751 Component Value Date/Time CALCIUM 8.9 09/05/2024 0751 ALKPHOS 160 (H) 09/05/2024 0751 AST 21 09/05/2024 0751 ALT 24 09/05/2024 0751 BILITOT 0.3 09/05/2024 0751 Radiology: CT 04/17/24 MRI Brain W WO [...] mass and metastatic left supraclavicular, mediastinal, hilar ujan, osseous, bilateral adrenal, subcutaneous/intramuscular deposits, and contralateral [...] atrial fibrillation with rapid ventricular response and will be administered today. Plan: C1D8 nab-paclitaxel today RTC 09/19/24 for C2D1 Cardiology follow up today at 230pm. He will likely need assistance for medications Chu Mesa PA-C Division of Medical Oncology [facility] LIFE REFUGE MANAGER documented in this encounter Plan of Treatment Not on file documented as of this encounter Visit Diagnoses Diagnosis 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)- Primary documented in this encounter Orders Appointment Requests Count Last Ordered Date Fi rst Ordered Date ONCBCN CLINIC APPOINTMENT REQUEST 1 024 documented in this encounter Care Teams Inpatient Pharmacist Relationship Specialty Start Date End Date Matthew Mccabe MD [address] [place] [address] PCP - General Family Medicine 05/13/24 Stan Meza MD [address] [facility] DIV IM MEDICAL ONCOLOGY, [address] [place] [address] Medical Oncologist/Consumer Educator Medical Oncology 06/28/24 documented as of this encounter
--- OUTSIDE RECORDS SUMMARY | 2024-10-30 07:03 | XMS_ITS | Encounter Summary ---
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 Gender Identity Not on file Sexual Orientation Not on file documented as of this encounter Plan of Treatment Not on file documented as of this encounter Visit Diagnoses Not on filedocumented in this encounter Additional Health Concerns Infection Onset Date Last Indicated Resolved Time COVID: Suspected 08/29/2024 08/29/2024 08/29/2024 1:59 PM CDT documented as of this encounter Care Teams Naphthalene Still Operator Relationship Specialty Start Date End Date Matthew Mccabe MD [address] [place] [address] PCP - General Family Medicine 05/13/24 Stan Meza MD [address] [facility] IM MEDICAL ONCOLOGY, [address] [place] [address] Medical Oncologist/Secretary Administrative Assistant Medical Oncology 06/28/24 documented as of this encounter
--- OUTSIDE RECORDS SUMMARY | 2024-10-30 07:03 | XMS_ITS | Encounter Summary ---
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 Gender Identity Not on file Sexual Orientation Not on file documented as of this encounter Plan of Treatment Not on file documented as of this encounter Procedures Procedure Name Priority Date/Time Associated Diagnosis Comments EGFR STAT 08/22/2024 11:10 AM CDT Primary [...] T3, FREE Routine 08/22/2024 11:10 AM CDT T4, FREE Routine 08/22/2024 11:10 AM CDT 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) COMPREHENSIVE METABOLIC PANEL STAT 08/22/2024 11:10 AM CDT 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) documented in this encounter Results * T3, free (08/22/2024 11:10 AM CDT) Pathologist [facility] Free T3 2.1 2.0 - 4.4 pg/mL Blood 08/22/2024 11:1 0 AM CDT 08/22/2024 11:28 AM CDT Narrative [facility] - 08/22/2024 12:47 PM CDT This test was reflexed from a T4 result. us Stan Meza MD LAB BLOOD ORDERABLES Yolette banda Result [facility] One [facility] Department [place] [address] * eGFR (08/22/2024 11:10 AM CDT) Pathologist [facility] eGFR >90 >=60 mL/min/1. 73 m2 Comment: [...] MD LAB BLOOD ORDERABLES Yolette banda Result Performing Organization Address City/State/[facility] Co de Phone Number [facility] One [facility] Department [place] [address] * T4, free (08/22/2024 11:10 AM CDT) Free T4 1.29 0.90 - 1.70 ng/dL Blood 08/22/2024 11:1 0 AM CDT 08/22/2024 11:28 AM CDT Narrative [facility] - 08/22/2024 12:25 PM CDT This test was reflexed from a TSH result. us Stan Meza MD LAB BLOOD ORDERABLES Yolette banda Result [facility] One [facility] Department [place] [address] * (ABNORMAL) Differential, auto (08/22/2024 11:10 AM CDT) Neutrophil abs 8.6(H) 1.5 - 6.5 K/cumm Comment:Testing performed by : [facility]e [facility], [address] [place] [address] Lymphocyte abs 0.3(L) 0.8 - 3.3 K/cumm [facility] Comment:Testing performed by : [facility], [address] [place], [place] [phone] Monocyte abs 0.1(L) 0.2 - 0.8 K/cumm C[facility]ER [facility] Comment:Testing performed by : [facility], [address] [place], [place] [phone] Eosinophil abs 0.0 0.0 - 0.5 K/cumm [facility] Comment:Testing performed by : [facility], [address] [place], [place] [phone] Basophil abs 0.0 0.0 - 0.1 K/cumm [facility] Comment:Testing performed by : [facility], [address] [place] [phone] Neutrophil pct 95.7 % [facility] Comment: Interpretive Data Percent cell count reference ranges are not reported, since discordance with absolute values may lead to misinterpretation of CBC data. Current Interpretive Data was last revised on 2018. Testing performed by: [facility], [address] [place] [phone] Lymphocyte pct 2.8 % [facility] Comment: Interpretive Data Percent cell count reference ranges are not reported, since discordance with absolute values may lead to misinterpretation of CBC data. Current Interpretive Data was last revised on 2018. Testing performed by: [facility], [address] [place] [address] Monocyte pct 1.5 % [facility] Comment: Interpretive Data Percent cell count reference ranges are not reported, since discordance with absolute values may lead to misinterpretation of CBC data. Current Interpretive Data was last revised on 2018. Testing performed by: [facility], [address] [place], [place] [phone] Eosinophil pct 0.0 % [facility] Comment: Interpretive Data Percent cell count reference ranges are not reported, since discordance with absolute values may lead to misinterpretation of CBC data. Current Interpretive Data was last revised on 2018. Testing performed by: [facility], [address] [place], [place] [id number] Basophil pct 0.0 % [facility] Comment: Interpretive Data Percent cell count reference ranges are not reported, since discordance with absolute values may lead to misinterpretation of CBC data. Current Interpretive Data was last revised on 2018. Testing performed by: [facility], [address] [place] [address] Blood 08/22/2024 11:1 0 AM CDT 08/22/2024 11:25 AM CDT Stan Meza MD LAB BLOOD ORDERABLES Yolette banda Result [facility] One [facility] Department [place] [address] * (ABNORMAL) CBC with auto differential (08/22/2024 11:10 AM CDT) WBC 9.0 3.8 - 9.9 K/cumm Comment:Testing performed by : [facility], [address] [place] [address] Hgb 12.1(L) 13.0 - 17.5 g/dL [facility] Comment:Testing performed by : [facility], [address] [place] [address] Hct 37.7(L) 38.9 - 50.3 % [facility] Comment:Testing performed by : [facility], [address] [place], [place] [phone] Plt 216 150 - 400 K/cumm CERALDO [facility] Comment:Testing performed by : [facility], [address] [place], [place] [phone] MPV 7.3 6.8 - 10.4 fL [facility] Comment:Testing performed by : [facility], [address] [place], [place] [phone] RBC 4.49 4.30 - 5.80 M/cumm [facility] Comment:Testing performed by : [facility], [address] [place], [place] [phone] MCV 84.1 81.3 - 96.4 fL [facility] Comment:Testing performed by : [facility], [address] [place], [place] [phone] MCH 27.0(L) 27.1 - 33.3 pg [facility] Comment:Testing performed by : [facility], [address] [place] [address] MCHC 32.2(L) 32.3 - 35.7 g/dL [facility] Comment:Testing performed by : [facility], [address] [place] [address] RDW CV 14.5 11.1 - 14.9 % [facility] Comment:Testing performed by : [facility], [address] [place] [address] NRBC abs 0.00 0.00 - 0.01 K/cumm [facility] Comment:Testing performed by : [facility], [address] [place] [address] Blood 08/22/2024 11:1 0 AM CDT 08/22/2024 11:25 AM CDT us Stan Meza MD LAB BLOOD ORDERABLES Yolette l Result [facility] One [facility] Department [place] [address] * (ABNORMAL) Comprehensive metabolic panel (08/22/2024 11:10 AM CDT) Sodium 131(L) 135 - 145 mmol/L Potassium, pl 4.2 3.3 - 4.9 mmol/L [facility] Chloride 97 97 - 110 mmol/L [facility] CO2 26 22 - 32 mmol/L [facility] Anion gap 8 2 - 15 mmol/L [facility] BUN 12 6 - 25 mg/dL [facility] Creatinine 0.66(L) 0.80 - 1.30 mg/dL [facility] Glucose 156 70 - 199 mg/dL [facility] Comment: Interpretive Data Fasting glucose >/= [...] 2022. Calcium 9.3 8.5 - 10.3 mg/dL [facility] Bilirubin, total 0.3 0.1 - 1.2 mg/dL [facility] Protein, pl 7.5 6.5 - 8.5 g/dL [facility] Albumin 3.6 3.5 - 5.0 g/dL [facility] Alk phos 145(H) 40 - 130 Units/L [facility] ALT 29 7 - 55 Units/L [facility] AST 25 10 - 50 Units/L [facility] Blood 08/22/2024 11:1 0 AM CDT 08/22/2024 11:28 AM CDT us Stan Meza MD LAB BLOOD ORDERABLES Yolette l Result [facility] One [facility] Department [place] [address] * (ABNORMAL) Thyroid Function [place] (08/22/2024 11:10 AM CDT) TSH 0.27(L) 0.30 - 4.20 mcIUnit/mL Blood 08/22/2024 11:1 0 AM CDT 08/22/2024 11:28 AM CDT us Stan Meza MD LAB BLOOD ORDERABLES Yolette l Result [facility] One [facility] Department [place] [address] documented in this encounter Visit Diagnoses Diagnosis 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) documented in this encounter Care Teams Statistical Machine Servicer Relationship Specialty Start Date End Date Matthew Mccabe MD [address] [place] [address] PCP - General Family Medicine 05/13/24 Stan Meza MD [address] [facility] MEDICAL ONCOLOGY, [address] [place] [address] Medical Oncologist/Grounds Cleaner Medical Oncology 06/28/24 documented as of this encounter
--- OUTSIDE RECORDS SUMMARY | 2024-10-30 07:03 | XMS_ITS | Encounter Summary ---
Author Organization [facility] Healthcare Address [address] [place] [address] Care Team Providers Care Char Conveyor Tender Name Role Phone Matthew Mccabe MD Primary Care Prov ider Stan Meza MD Unavailable [phone] Reason for Visit * Episode Based Medications (Routine) - Authorized Specialty Diagnoses / Procedures Referred By Contac t Referred To Contact Diagnoses 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) Stan Meza MD [address] [place] [address] Phone: tel: fax: [facility] - Infusion [address] [facility] [address] [place] [address] Referral ID Status Reason Start Date Expiration Date V isits Requested Visits Authorized [id number] Authorized 08/20/2024 02/06/2025 1 50 Encounter Details Date Type Department Care Team (Late st Contact Info) Description 08/22/2024 12:00 PM CDT Infusion [facility] - Infusion [address] 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 Gender Identity Not on file Sexual Orientation Not on file documented as of this encounter Last Filed Vital Signs Vital Sign Reading Time Taken Comments Blood Pressure 151/92 08/22/2024 12:59 PM CDT ALYX Winston is aware Pulse 90 08/22/2024 12:59 PM CDT Temperature 36.4 ??C (97.6 ??F) 08/22/2024 1 2:59 PM CDT Respiratory Rate 22 08/22/2024 12:5 9 PM CDT Oxygen Saturation 99% 08/22/2024 12: 59 PM CDT Inhaled Oxygen Concentration - - Weight 96.8 kg (213 lb 6.5 oz) 08/22/2024 12:59 PM CDT Height 170 cm (5' 6.93 ) 08/22/2024 1:0 0 PM CDT Body Mass Index 33.49 08/22/2024 12:59 PM CDT documented in this encounter Nursing Notes * Tish Luciano, ALYX - 08/22/2024 12:00 PM CDT Oncology Nursing Note [facility] INFUSION Josafat Calvo is a 63 y.o. male who presents for treatment cycle 1, day 1 of pembrolizumab/albumin-bound paclitaxel/carboplatin. Pre-treatment Nursing Assessment Nursing Assessment LOC: Alert, Awake Constitutional: Fatigue Fatigue: Occassional Any falls since your last visit?: No Orientation: Oriented x4 Behavior: Anxious Speech: Clear Language: No aphasia Vision: At baseline Peripheral Neuropathy: No Oral Mucosa Grade: Normal (0) Pt states has potential to be ?: No Shortness of Breath?: No Appetite: Good What diet do you follow at home?: Regular Have You Recently Lost Weight Without Trying?: No Have you been eating poorly because of a decreased appetite?: No Malnutrition Screening Tool (MST) Score: 0 Nausea/Vomiting: No Abdomen: Soft Diarrhea: No Constipation: No Last BM Date: 08/22/24 Skin Condition/Temp: Warm, Dry Swelling: No Encounter Vitals BP: 151/92 (ALYX Winston is aware) (08/22/2024 12:59 PM) Pulse: 90 (08/22/2024 12:59 PM) Resp: 22 (08/22/2024 12:59 PM) Temp: 36.4 ??C (97.6 ??F) (08/22/2024 12:59 PM) Temp src: Oral (08/22/2024 12:59 PM) SpO2: 99 % (08/22/2024 12:59 PM) Weight: 96.8 kg (213 lb 6.5 oz) (08/22/2024 12:59 PM) Height: 170 cm (5' 6.93 ) (08/22/2024 1:00 PM) Pain Score: 0 - No pain Treatment Patient: met treatment parameters Pre blood return: Melvin Calvo tolerated treatment well. Patient was frequently observed and monitored throughout the administration of their treatment. Post blood return: Brisk IV access post infusion: NS Patient Education Treatment Education: Information/teaching given to patient including fall prevention, signs and symptoms of infection, adverse reaction, symptom management, process and procedure related to today's visit, and when to notify MD Response: Verbalizes understanding Discharge Plan Discharge instructions given to patient. Future appointments given and reviewed with treatment plan. Discharge Mode: Ambulatory Accompanied by: Self Discharged To: Home documented in this encounter Plan of Treatment [...] Administer over 30 Minutes, Once, On Evette 08/22/24 at 1515, For 1 dose, Do NOT use a filter during administration. Irritant with vesicant potential. ADMINISTER BY SYRINGE PUMP ONLY - NOT IV PUSH.Indications: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) New Bag 08/22/2024 3:49 PM CDT 210 mg 84 mL/hr aprepitant (CINVANTI) injection 130 mg 130 mg, intravenous, at 540 mL/hr, Administer over 2 Minutes, Once, On Evette 08/22/24 at 1415, For 1 dose, IV over 2 minutes; avoid shaking.Indications: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) Given 08/22/2024 2:04 PM CDT 130 mg 540 mL/hr CARBOplatin (PARAPLATIN) 750 mg in sodium chloride 0.9% 250 mL IVPB (By AUC) 750 mg (Target AUC = 5), intravenous, at 700 mL/hr, Administer over 30 Minutes, Once, On Evette 08/22/24 at 1545, For 1 dose, IrritantIndications: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) New Bag 08/22/2024 4:25 PM CDT 750 mg 700 mL/hr dexAMETHasone (DECADRON) preservative free solution 10 mg 10 mg, intravenous, Administer over 2 Minutes, Once, On Evette 08/22/24 at 1415, For 1 doseIndications: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) Given 08/22/2024 2:04 PM CDT 10 mg palonosetron (ALOXI) injection 250 mcg 250 mcg (0.25 mg), intravenous, Once, On Evette 08/22/24 at 1415, For 1 dose, For IV push, administer over 30 seconds.Indications: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) Given 08/22/2024 2:04 PM CDT 250 mcg pembrolizumab (KEYTRUDA) 200 mg in sodium chloride 0.9% 100 mL 200 mg, intravenous, at 236 mL/hr, Administer over 30 Minutes, Once, On Evette 08/22/24 at 1445, For 1 dose, Use 0.2-5 micron filterIndications: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) New Bag 08/22/2024 2:44 PM CDT 200 mg 236 mL/hr documented in this encounter Orders Medications Ordered That Cuco ht Not Have Been Administered Count Last Ordered Date First Ordered Date albuterol 2.5 mg /3 mL (0.08 3 %) nebulizer solution 2.5 mg 1 08/22/2024 diphenhydrAMINE (BENADRYL) 5 0 mg/mL injection 25 mg 1 08/22/2024 diphenhydrAMINE (BENADRYL) 5 0 mg/mL injection 50 mg 1 08/22/2024 EPINEPHrine 0.3 mg/0.3 mL syringe 0.3 mg 1 08/22/2024 famotidine (PEPCID) injection 20 mg 1 08/22 meperidine (DEMEROL) preserv ative free injection 25 mg 1 08/22/2024 sodium chloride 0.9% bolus 500 mL 1 024 sodium chloride 0.9% infusion 1 08/22/2024 Nursing Count Last Ordered Date First Orde red Date ONCBCN HYPERSENSITIVITY MILD 1 08/22/2024 ONCBCN HYPERSENSITIVITY SEVERE/ANAPHYLAXIS 1 08/22/2024 ONCBCN NURSING COMMUNICATION [id number] 1 1 ONCBCN RETITRATION INSTRUCTIONS [id number] 1 08/22/2024 ONCBCN TITRATION INSTRUCTIONS 1 1 ONCBCN TREATMENT PARAMETERS 3 1 08/22/2024 Appointment Requests Count Last Ordered Date Fi rst Ordered Date ONCBCN RETURN CHEMO 3HRS 1 08/22/2024 documented in this encounter Care Teams Char Conveyor Tender Relationship Specialty Start Date End Date Matthew Mccabe MD [address] [place] [address] PCP - General Family Medicine 05/13/24 Stan Meza MD [address] [facility] IM MEDICAL ONCOLOGY, [address] [place] [address] Medical Oncologist/Pot Reliner Medical Oncology 06/28/24 documented as of this encounter
--- OUTSIDE RECORDS SUMMARY | 2024-10-30 07:03 | XMS_ITS | Encounter Summary ---
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 10 tablet 3 4 eplerenone (INSPRA) 25 mg tablet Take 1 tablet (25 mg total) by mouth daily 4 lamoTRIgine (LaMICtal) 100 mg tablet Take [...] needed for pain 120 tablet 4 09/25/20 24 documented as of this encounter Discharge Disposition [...] documented as of this encounter Care Teams Loan Documentation Specialist Relationship Specialty Start Date End Date Matthew Mccabe MD [address] [place] [address] PCP - General Family Medicine 05/13/24 Stan Meza MD [address] [facility] IM MEDICAL ONCOLOGY, [address] [place] [address] Medical Oncologist/Manager Workers Compensation Medical Oncology 06/28/24 documented as of this encounter
--- OUTSIDE RECORDS SUMMARY | 2024-10-30 07:03 | XMS_ITS | Encounter Summary ---
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 Gender Identity Not on file Sexual Orientation Not on file documented as of this encounter Plan of Treatment Not on file documented as of this encounter Procedures Procedure Name Priority Date/Time Associated Diagnosis Comments RAD ONC ARIA SESSION SUMMARY 08/16/2024 11:46 AM CDT documented in this encounter Results * RAD ONC ARIA SESSION SUMMARY (08/16/2024 [...] on filedocumented in this encounter Care Teams Market Manager Relationship Specialty Start Date End Date Matthew Mccabe MD [address] [place] [address] PCP - General Family Medicine 05/13/24 Stan Meza MD [address] [facility] IM MEDICAL ONCOLOGY, [address] [place] [address] Medical Oncologist/Manager Maintenance Medical Oncology 06/28/24 documented as of this encounter
--- OUTSIDE RECORDS SUMMARY | 2024-10-30 07:03 | XMS_ITS | Encounter Summary ---
Author Organization [facility] Healthcare Address [address] [place] [address] Care Team Providers Care Prepared Foods Supervisor Name Role Phone Matthew Mccabe MD Primary Care Prov ider Stan Meza MD Unavailable [phone] Reason for Visit * Reason Comments OTV Encounter Details Date Type Department Care Team (Late st Contact Info) Description 08/12/2024 OTV [facility] Advanced Medicine Radiation Oncology [address] [facility] Advanced Medicine [facility] [address] Jeffrey Ham MD [address] [facility] [address] [place] [address] 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) (Primary Dx) Social History Tobacco Use [...] on file 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 Gender Identity Not on file Sexual Orientation Not on file documented as of this encounter Last Filed Vital Signs Vital Sign Reading Time Taken Comments Blood Pressure - - Pulse - - Temperature - - Respiratory Rate - - Oxygen Saturation - - Inhaled Oxygen Concentration - - Weight 99 kg (218 lb 4.8 oz) 08/12/2024 4:23 PM CDT Height - - Body Mass Index 35.23 08/01/2024 9:50 AM CDT documented in this encounter Progress Notes * Nitin Loyola MD - 08/12/2024 4:23 PM CDT Radiation Oncologist: No care steam setter to display Primary Care Physician: Matthew Mccabe MD Medical Oncologist: Stan Meza MD Surgeon: No care steam setter to display Date of Service: 08/12/2024 RADIATION ONCOLOGY ON TREATMENT VISIT (OTV) NOTE Diagnosis: Cancer Staging No matching staging information was found for the patient. Encounter Diagnosis Name Primary? 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 male with metastatic NSCLC with painful sternum and sacrum metastases. Treatment: Radiation Treatments Active Plans SACRUM Most recent treatment: Dose planned: 400 cGy (fraction 1 on 08/12/2024) Total: Dose planned: 2,000 cGy Elapsed Days: 0 STERNUM Most recent treatment: Dose planned: 400 cGy (fraction 1 on 08/12/2024) Total: Dose planned: 2,000 cGy Elapsed Days: 0 Reference Points SACRUM_DPV Most recent treatment: Dose given: 400 cGy (on 08/12/2024) Total: Dose given: 400 cGy Elapsed Days: 0 STERNUM_DPV Most recent treatment: Dose given: 400 cGy (on 08/12/2024) Total: Dose given: 400 cGy Elapsed Days: 0 Radiation Treatments No historical radiation treatments to show. Subjective: He had his first fraction today. He continues to have severe sternum and lower back pain. He is on dexamethasone and oxycodone (taking 2 tablets q4h) with some but incomplete relief. Has poor appetite. Physical Exam: Wt 99 kg (218 lb 4.8 oz) BMI 35.23 kg/m?? Pain: 6 NAD, breathing comfortably on room air Headache: 0 - None Nausea: 0 - None Cognitive Disturbance: 0 - None Fatigue: 1 - Fatigue relieved by rest Performance Status: (1) Restricted in physically strenuous activity, ambulatory and able to do workof light nature Assessment Experiencing anticipated side effects Plan 1) Continue with treatment 2) Pain Plan: The patient's pain is currently being managed by Medical Oncology . We will reach outto them to see if pain medication dosage can be adjusted. 3) Met with dietitian about weight loss and poor appetite. To start ensure supplement. Cosigned by Jeffrey Ham MD at 08/13/2024 8:49 AM CDT Associated attestation - Jeffrey Ham MD - 08/13/2024 8:49 AM CDT I have seen and examined the patient. I agree with the findings and plan of care as documented in the resident's note. documented in this encounter Nursing Notes * Floridalma Rubin, RN - 08/12/2024 4:23 PM CDT Date: 08/12/2024 []CONSULT/[]FOLLOW UP /[x]OTV/[]SKIN CHECK NAME: Josafat Calvo : 1960 AGE: 63 y.o. Patient info: Patient ambulatory with steady gait. Med/onc recently started patient on dexamethasone 4 mg daily and oxycodone 5-10 mg q 4 hrn prn for his sternal chest pain. Unfortunately, patient has not noticed any relief of pain despite taking both on a regular schedule. He describes it as a constant sharp burning at mid-chest. He doesn't notice any back pain r/t sacral met because chest pain is more severe. Appetite is still decreased. He has no c/o nausea, just nothing sounds good and onlyeats once per day. 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 Last visit: Wt Readings from Last 3 Encounters: 08/12/24 99 kg (218 lb 4.8 oz) 08/01/24 97.5 kg (215 lb) 08/01/24 97.7 kg (215 lb 6.4 oz) Vitals Wt 99 kg (218 lb 4.8 oz) BMI 35.23 kg/m?? Pain:05/08 (sternum) Pacemaker or Implant: yes[] no[x] Patient Concerns: no appetite, pain All patients: [x]- weight loss []- fever/chills []- nausea/vomiting []- falls at home Neurological: []- headache []- vision changes []- balance []- stability []- weakness/speech Thorax: []- trouble swallowing []- shortness of breath []- cough /prostate: []- burning on urination []- urinary frequency []- diarrhea/loose stools []- blood in stool/urine Notes: Multimedia Author spoke with patient today and provided handouts for meal plans/snacks and coupons for Ensure. CDA to reach out to med/onc regarding pain medication changes. documented in this encounter Plan of Treatment Not on file documented as of this encounter Visit Diagnoses Diagnosis 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)- Primary documented in this encounter Care Teams Prepared Foods Supervisor Relationship Specialty Start Date End Date Matthew Mccabe MD [address] [place] [address] PCP - General Family Medicine 05/13/24 Stan Meza MD [address] [facility] IM MEDICAL ONCOLOGY, [address] [place] [address] Medical Oncologist/Elevator Tender Medical Oncology 06/28/24 documented as of this encounter
--- OUTSIDE RECORDS SUMMARY | 2024-10-30 07:03 | XMS_ITS | Encounter Summary ---
Author Organization [facility] Healthcare Address [address] [place] [address] Care Team Providers Care Shot Core Drill Operator Name Role Phone Matthew Mccabe MD Primary Care Prov ider Stan Meza MD Unavailable Encounter Details Date Type Department Care Team (Late st Contact Info) Description 08/13/2024 8:19 AM CDT - 08/13/2024 11:59 PM CDT Hospital Encounter [facility] for Advanced Medicine Radiation Oncology [address] [facility] Advanced Medicine [facility] [place] [address] Jeffrey Ham MD [address] [facility] [address] [place] [address] Discharge Disposition: Discharge to home or self [...] on file 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
--- OUTSIDE RECORDS SUMMARY | 2024-10-30 07:03 | XMS_ITS | Encounter Summary ---
Author Organization [facility] Address [address] [place] [address] Phone Care Team Providers Care Oven Equipment Repairer Name Role Phone Matthew Mccabe MD Primary Care Prov ider Stan Meza MD Unavailable [phone] Encounter Details Date Type Department Care Team (Late st Contact Info) Description 08/23/2024 Social Work 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 Transportation has been arranged for: DATE: 08/29 PICK-UP TIME: 930a PICK-UP TIME FOR RETURN TRIP: Will call TRIP NUMBER: [id number] CONTACT TELEPHONE #: [phone] Patient is aware of these arrangements and in agreement with plan. SW requested that [facility] notbe used, as they do not work past 2pm and patient will not be done with treatment by that time. COMagreed to make note of this. documented in this encounter Plan of Treatment Not on file documented as of this encounter Visit Diagnoses Not on filedocumented in this encounter Care Teams Oven Equipment Repairer Relationship Specialty Start Date End Date Matthew Mccabe MD [address] [place] [address] PCP - General Family Medicine 05/13/24 Stan Meza MD [address] [facility] MEDICAL ONCOLOGY, [address] [place] [address] Medical Oncologist/Solar Sales Estimator Medical Oncology 06/28/24 documented as of this encounter
--- OUTSIDE RECORDS SUMMARY | 2024-10-30 07:03 | XMS_ITS | Encounter Summary ---
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 Pt receiving palliative RT to sternum and sacrum and Pembrolizumab / Albumin-bound PACLItaxel (Abraxane) / CARBOplatin Referral for weight loss and Ensure Plus. Weight: Wt Readings from Last 10 Encounters: 08/22/24 96.8 kg (213 lb 6.5 oz) 08/22/24 95.3 kg (210 lb) 08/15/24 98.6 kg (217 lb 6.4 oz) 08/12/24 99 kg (218 lb 4.8 oz) 08/01/24 97.5 kg (215 lb) 08/01/24 97.7 kg (215 lb 6.4 oz) 07/18/24 99.3 kg (219 lb) 06/19/24 102.1 kg (225 lb) 05/28/24 101.2 kg (223 lb) Estimated body mass index is 33.49 kg/m?? as calculated from the following: Height as of an earlier encounter on 08/22/24: 170 cm (5' 6.93 ). Weight as of an earlier encounter on 08/22/24: 96.8 kg (213 lb 6.5 oz). Antimony body weight: 65.9 kg (145 lb 5.8 oz) Adjusted ideal body weight: 78.3 kg (172 lb 9.3 oz) Estimated Energy Needs: Based on: 97.5 kg Calories 3753-6228 kcal/day 20-22 kcal/kg Protein 98 g/day 1 g/kg Fluid 64 oz/day or Per MD Impression: Assessment completed via phone. Pt wt is slowly increasing. He reported he hs been drinking Ensure TID to increase weight. Denied N/V. Pt with constipation and going to start taking Miralax and stoolsoftener. He reports he drinks a lot of water/liquids throughout the day. He constantly feels like there is something in the middle of his chest when he swallows. Taste is off. He is not eating mealsregularly but trying to eat what he can. He is not liking meat lately. Yesterday he had eggs, sausage, biscuits and gravy. Today he had 3 Ensures plus a bowl of pineapple. Intervention: - Reviewed increased needs for protein [...] - Registered pt for Ensure Plus through [facility] for 3 cases x 3 months. - Encouraged fluid intake. - Recommended Ensure Plus TID. Dagmar Pickard RDN, documented in this encounter Plan of Treatment Not on file documented as of this encounter Visit Diagnoses Not on filedocumented in this encounter Care Teams Grain I Farmworker Relationship Specialty Start Date End Date Matthew Mccabe MD [address] [place] [address] PCP - General Family Medicine 05/13/24 Stan Meza MD [address] [facility] MEDICAL ONCOLOGY, [address] [place] [address] Medical Oncologist/Real Estate Broker Medical Oncology 06/28/24 documented as of this encounter
--- OUTSIDE RECORDS SUMMARY | 2024-10-30 07:03 | XMS_ITS | Encounter Summary ---
Author Organization [facility] Healthcare Address [address] [place] [address] Care Team Providers Care Funeral Planner Name Role Phone Matthew Mccabe MD Primary Care Prov ider Stan Meza MD Unavailable [phone] Encounter Details Date Type Department Care Team (Late st Contact Info) Description 08/14/2024 9:06 AM CDT - 08/14/2024 11:59 PM CDT Hospital Encounter [facility] for Advanced Medicine Radiation Oncology [address] [facility] Advanced Medicine [facility] [place] [address] Jeffrey Ham MD [address] [facility] [address] LL [address] [place] [address] Discharge Disposition: Discharge to home or self [...] on file 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
--- OUTSIDE RECORDS SUMMARY | 2024-10-30 07:03 | XMS_ITS | Encounter Summary ---
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 Transportation via [facility]. GOAL/PLAN: SW will remain available should SW needs arise. MANAV Sweeney, LAURIE, [facility]-Radiation Oncology, [facility]-Breast [facility], [facility]-Radiology, [facility], [facility] Nuclear Medicine [facility] documented in this encounter Plan of Treatment Not on file documented as of this encounter Visit Diagnoses Not on filedocumented in this encounter Care Teams Separating Machine Operator Relationship Specialty Start Date End Date Matthew Mccabe MD [address] [place] [address] PCP - General Family Medicine 05/13/24 Stan Meza MD [address] [facility] MEDICAL ONCOLOGY, [address] [place] [address] Medical Oncologist/Roll Plugger Machine Operator Medical Oncology 06/28/24 documented as of this encounter
--- OUTSIDE RECORDS SUMMARY | 2024-10-30 07:03 | XMS_ITS | Encounter Summary ---
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 Gender Identity Not on file Sexual Orientation Not on file documented as of this encounter Plan of Treatment Not on file documented as of this encounter Procedures Procedure Name Priority Date/Time Associated Diagnosis Comments EGFR STAT 08/15/2024 6:45 AM CDT Prophylaxis for chemotherapy-induc ed neutropenia 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) DIFFERENTIAL AUTO Routine 08/15/2024 6:4 5 AM CDT Prophylaxis for chemotherapy-induc ed neutropenia 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) CBC WITH AUTO DIFFERENTIAL Routine 08/15/2024 6:45 AM CDT Prophylaxis for chemotherapy-induc ed neutropenia 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) TSH Routine 08/15/2024 6:45 AM CDT Prophylaxis for chemotherapy-induc ed neutropenia 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) COMPREHENSIVE METABOLIC PANEL STAT 08/15/2024 6:45 AM CDT Prophylaxis for chemotherapy-induc ed neutropenia 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) documented in this encounter Results * eGFR (08/15/2024 6:45 AM CDT) eGFR [...] MD LAB BLOOD ORDERABLES Yolette banda Result [facility] [place] [address] * (ABNORMAL) Differential, auto (08/15/2024 6:45 AM CDT) Neutrophil abs 9.6(H) 1.5 - 6.5 K/cumm Comment:Testing performed by : [facility], [address] [place] [phone] Lymphocyte abs 1.7 0.8 - 3.3 K/cumm CERNER BJ Comment:Testing performed by : [facility], [address] [place] [phone] Monocyte abs 1.0(H) 0.2 - 0.8 K/cumm CERNER BJ Comment:Testing performed by : [facility], [address] [place] [phone] Eosinophil abs 0.3 0.0 - 0.5 K/cumm CERNER BJ Comment:Testing performed by : [facility], [address] [place] [phone] Basophil abs 0.1 0.0 - 0.1 K/cumm CERNER BJ Comment:Testing performed by : [facility], [address] [place] [phone] Neutrophil pct 75.9 % CERNER BJ Comment: Interpretive Data Percent cell count reference ranges are not reported, since discordance with absolute values may lead to misinterpretation of CBC data. Current Interpretive Data was last revised on 2018. Testing performed by: [facility], [address] [place] [phone] Lymphocyte pct 13.0 % [facility] Comment: Interpretive Data Percent cell count reference ranges are not reported, since discordance with absolute values may lead to misinterpretation of CBC data. Current Interpretive Data was last revised on 2018. Testing performed by: [facility], [address] [place] [phone] Monocyte pct 8.2 % [facility] Comment: Interpretive Data Percent cell count reference ranges are not reported, since discordance with absolute values may lead to misinterpretation of CBC data. Current Interpretive Data was last revised on 2018. Testing performed by: [facility], [address] [place] [phone] Eosinophil pct 2.3 % [facility] Comment: Interpretive Data Percent cell count reference ranges are not reported, since discordance with absolute values may lead to misinterpretation of CBC data. Current Interpretive Data was last revised on 2018. Testing performed by: [facility], [address] [place] [phone] Basophil pct 0.6 % [facility] Comment: Interpretive Data Percent cell count reference ranges are not reported, since discordance with absolute values may lead to misinterpretation of CBC data. Current Interpretive Data was last revised on 2018. Testing performed by: [facility], [address] [place] [phone] Blood 08/15/2024 6:45 AM CDT 08/15/2024 6:55 AM CDT us Stan Meza MD LAB BLOOD ORDERABLES Yolette banda Result [facility] [place] [address] * (ABNORMAL) CBC with auto differential (08/15/2024 6:45 AM CDT) WBC 12.7(H) 3.8 - 9.9 K/cumm Comment:Testing performed by : [facility], [address] [place], [place] [phone] Hgb 12.3(L) 13.0 - 17.5 g/dL CERNER BJ Comment:Testing performed by : [facility], [address] [place], [place] [phone] Hct 38.3(L) 38.9 - 50.3 % CERNER BJ Comment:Testing performed by : [facility], [address] [place], [place] [phone] Plt 341 150 - 400 K/cumm CERNER BJ Comment:Testing performed by : [facility], [address] [place], [place] [phone] MPV 6.6(L) 6.8 - 10.4 fL CERNER BJ Comment:Testing performed by : [facility], [address] [place], [place] [phone] RBC 4.55 4.30 - 5.80 M/cumm CERNER BJ Comment:Testing performed by : [facility], [address] [place], [place] [phone] MCV 84.1 81.3 - 96.4 fL CERNER BJ Comment:Testing performed by : [facility], [address] [place], [place] [id number] MCH 27.1 27.1 - 33.3 pg CERNER BJ Comment:Testing performed by : [facility], [address] [place] [address] MCHC 32.2(L) 32.3 - 35.7 g/dL CERNER BJ Comment:Testing performed by : [facility], [address] [place] [address] RDW CV 13.9 11.1 - 14.9 % CERNER BJ Comment:Testing performed by : [facility], [address] [place] [address] NRBC abs 0.00 0.00 - 0.01 K/cumm CERNER BJ Comment:Testing performed by : [facility], [address] [place] [address] Blood 08/15/2024 6:45 AM CDT 08/15/2024 6:55 AM CDT us Stan Meza MD LAB BLOOD ORDERABLES Yolette l Result [facility] [place] [address] * (ABNORMAL) Comprehensive metabolic panel (08/15/2024 6:45 AM CDT) Sodium 133(L) 135 - 145 mmol/L Potassium, pl 4.5 3.3 - 4.9 mmol/L [facility] Chloride 98 97 - 110 mmol/L [facility] CO2 29 22 - 32 mmol/L [facility] Anion gap 6 2 - 15 mmol/L [facility] BUN 8 6 - 25 mg/dL [facility] Creatinine 0.71(L) 0.80 - 1.30 mg/dL [facility] Glucose 98 70 - 199 mg/dL [facility] Comment: Interpretive Data Fasting glucose >/= [...] 2022. Calcium 9.5 8.5 - 10.3 mg/dL [facility] Bilirubin, total 0.4 0.1 - 1.2 mg/dL [facility] Protein, pl 7.1 6.5 - 8.5 g/dL [facility] Albumin 3.4(L) 3.5 - 5.0 g/dL [facility] Alk phos 163(H) 40 - 130 Units/L [facility] ALT 36 7 - 55 Units/L [facility] AST 22 10 - 50 Units/L [facility] Blood 08/15/2024 6:45 AM CDT 08/15/2024 6:56 AM CDT us Stan Meza MD LAB BLOOD ORDERABLES Yolette l Result [facility] [place] [address] * TSH (08/15/2024 6:45 AM CDT) Thyroid Stimulating Hormone 2.36 0.30 - 4.20 mcIUnit/mL Blood 08/15/2024 6:45 AM CDT 08/15/2024 6:56 AM CDT us Stan Meza MD LAB BLOOD ORDERABLES Yolette l Result Performing Organization Address City[facility] Co de Phone Number [facility] [place] [address] documented in this encounter Visit Diagnoses Diagnosis Prophylaxis for chemotherapy-induced neutropenia 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) documented in this encounter Care Teams Rotor Balancer Relationship Specialty Start Date End Date Matthew Mccabe MD [address] [place] [address] PCP - General Family Medicine 05/13/24 Stan Meza MD [address] [facility] MEDICAL ONCOLOGY, [address] [place] [address] Medical Oncologist/Telegraphic Typewriter Operator Chief Medical Oncology 06/28/24 documented as of this encounter
--- OUTSIDE RECORDS SUMMARY | 2024-10-30 07:03 | XMS_ITS | Encounter Summary ---
Author Organization [facility] Address [address] [place] [address] Phone Care Team Providers Care Splitting Machine Operator Name Role Phone Matthew Mccabe MD Primary Care Prov ider Stan Meza MD Unavailable [phone] Encounter Details Date Type Department Care Team (Late st Contact Info) Description 08/26/2024 Telephone [facility] ([facility]) - [facility] [address] [facility] Advanced Medicine 11th [place] [address] [place] [address] Alexsandra Augustine MS Social History [...] on file 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 Gender Identity Not on file Sexual Orientation Not on file documented as of this encounter Miscellaneous Notes * Telephone Encounter - Maicol Roman - 09/10/2024 8:30 AM CST Pt called to confirm appt EL WHEELER * Telephone Encounter - Maicol Roman - 08/26/2024 8:49 AM CDT Called pt to schedule aydee from referral documented in this encounter Plan of Treatment Not on file documented as of this encounter Visit Diagnoses Not on filedocumented in this encounter Additional Health Concerns Infection Onset Date Last Indicated Resolved Time COVID: Suspected 08/29/2024 08/29/2024 08/29/2024 1:59 PM CDT documented as of this encounter Care Teams Splitting Machine Operator Relationship Specialty Start Date End Date Matthew Mccabe MD [address] [place] [address] PCP - General Family Medicine 05/13/24 Stan Meza MD [address] [facility], [address] [place] [address] Medical Oncologist/Ship Loader Medical Oncology 06/28/24 documented as of this encounter
--- OUTSIDE RECORDS SUMMARY | 2024-10-30 07:03 | XMS_ITS | Encounter Summary ---
Author Organization [facility] Healthcare Address [address] [place] [address] Care Team Providers Care Shoe Repairer Helper Name Role Phone Matthew Mccabe MD Primary Care Prov ider Stan Meza MD Unavailable [phone] Encounter Details Date Type Department Care Team (Late st Contact Info) Description 08/19/2024 Completion of Therapy [facility] Advanced Medicine Radiation Oncology [address] 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 male with metastatic NSCLC with painful sternum and sacrum metastases. Treatment Delivered: Start: 08/12/2024 End: 08/16/2024 Radiation Treatments Active Plans SACRUM Most recent treatment: Dose planned: 400 cGy (fraction 5 on 08/16/2024) Total: Dose planned: 2,000 cGy Elapsed Days: 4 STERNUM Most recent treatment: Dose planned: 400 cGy (fraction 5 on 08/16/2024) Total: Dose planned: 2,000 cGy Elapsed Days: 4 Reference Points SACRUM_DPV Most recent treatment: Dose given: 400 cGy (on 08/16/2024) Total: Dose given: 2,000 cGy Elapsed Days: 4 STERNUM_DPV Most recent treatment: Dose given: 400 cGy (on 08/16/2024) Total: Dose given: 2,000 cGy Elapsed Days: 4 Radiation Treatments No historical radiation treatments to show. Concurrent Therapy: N/A Pain Plan: RAD ONC PAIN PLAN: The patient's pain is currently being managed by Medical Oncology . Tolerance to Treatment: Mr. Calvo tolerated the treatment well. During the course of radiotherapy he noted persistent sternal pain. This was initially addressed with dexamethasone and oxycodone. However at his 1st on treatment visit a decision was made to increase his oxycodone. Medical Oncology was notified. Disposition: Follow up in clinic on an as needed basis Post treatment skin care instructions given. Patient was instructed to call with any concerns prior to scheduled follow up visit. Provider Contracting Consultant completed by using M*Modal Fluency Direct speaking software, therefore, transcriptionvariances may occur. documented in this encounter Plan of Treatment Not on file documented as of this encounter Visit Diagnoses Not on filedocumented in this encounter Care Teams Shoe Repairer Helper Relationship Specialty Start Date End Date Matthew Mccabe MD [address] [place] [address] PCP - General Family Medicine 05/13/24 Stan Meza MD [address] [facility] IM MEDICAL ONCOLOGY, [address], [address], [address] [place] [address] Medical Oncologist/Business Systems Advisor Medical Oncology 06/28/24 documented as of this encounter
--- OUTSIDE RECORDS SUMMARY | 2024-10-30 07:03 | XMS_ITS | Encounter Summary ---
Author Organization [facility] Healthcare Address [address] [place] [address] Care Team Providers Care Driver Salesman Name Role Phone Matthew Mccabe MD Primary Care Prov ider Stan Meza MD Unavailable [phone] Reason for Visit * Episode Based Medications (Routine) - Authorized Specialty Diagnoses / Procedures Referred By Contac t Referred To Contact Diagnoses 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) Stan Meza MD [address] [place] [address] Phone: tel: fax: [facility] - Infusion [address] [facility] Floor 5 [place] [address] Referral ID Status Reason Start Date Expiration Date V isits Requested Visits Authorized [id number] Authorized 08/20/2024 02/06/2025 1 50 Encounter Details Date Type Department Care Team (Late st Contact Info) Description 08/29/2024 10:30 AM CDT Lab [facility] - Lab Collection [address] [facility] Floor 5 [place] [address] Primary cancer of left lower lobe of [...] on file 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 Gender Identity Not on file Sexual Orientation Not on file documented as of this encounter Plan of Treatment Not on file documented as of this encounter Procedures Procedure Name Priority Date/Time Associated Diagnosis Comments EGFR STAT 08/29/2024 10:34 AM CDT Primary [...] documented in this encounter Results * eGFR (08/29/2024 10:34 AM CDT) eGFR [...] MD LAB BLOOD ORDERABLES Yolette banda Result [facility] Department [place] [address] * (ABNORMAL) Differential, auto (08/29/2024 10:34 AM CDT) Neutrophil abs 3.8 1.5 - 6.5 K/cumm Comment:Testing performed by : [facility], [address] [place], [place] [phone] Lymphocyte abs 0.4(L) 0.8 - 3.3 K/cumm [facility] Comment:Testing performed by : [facility], [address] [place] [phone] Monocyte abs 0.2 0.2 - 0.8 K/cumm [facility] Comment:Testing performed by : [facility], [address] [place] [phone] Eosinophil abs 0.1 0.0 - 0.5 K/cumm [facility] Comment:Testing performed by : [facility], [address] [place] [phone] Basophil abs 0.0 0.0 - 0.1 K/cumm [facility] Comment:Testing performed by : [facility], [address] [place] [phone] Neutrophil pct 84.7 % [facility] Comment: Interpretive Data Percent cell count reference ranges are not reported, since discordance with absolute values may lead to misinterpretation of CBC data. Current Interpretive Data was last revised on 2018. Testing performed by: [facility], [address] [place] [phone] Lymphocyte pct 8.7 % [facility] BJ Comment: Interpretive Data Percent cell count reference ranges are not reported, since discordance with absolute values may lead to misinterpretation of CBC data. Current Interpretive Data was last revised on 2018. Testing performed by: [facility], [address] [place] [phone] Monocyte pct 4.6 % [facility]J Comment: Interpretive Data Percent cell count reference ranges are not reported, since discordance with absolute values may lead to misinterpretation of CBC data. Current Interpretive Data was last revised on 2018. Testing performed by: [facility], [address] [place] [phone] Eosinophil pct 1.5 % [facility]J Comment: Interpretive Data Percent cell count reference ranges are not reported, since discordance with absolute values may lead to misinterpretation of CBC data. Current Interpretive Data was last revised on 2018. Testing performed by: [facility], [address] [place] [phone] Basophil pct 0.5 % [facility]J Comment: Interpretive Data Percent cell count reference ranges are not reported, since discordance with absolute values may lead to misinterpretation of CBC data. Current Interpretive Data was last revised on 2018. Testing performed by: [facility], [address] [place] [phone] Blood 08/29/2024 10:3 4 AM CDT 08/29/2024 10:35 AM CDT us Stan Meza MD LAB BLOOD ORDERABLES Yolette l Result [facility] Department [place] [address] * (ABNORMAL) CBC with auto differential (08/29/2024 10:34 AM CDT) WBC 4.5 3.8 - 9.9 K/cumm Comment:Testing performed by : [facility], [address] [place] [address] Hgb 11.4(L) 13.0 - 17.5 g/dL [facility] Comment:Testing performed by : [facility], [address] [place] [address] Hct 35.2(L) 38.9 - 50.3 % [facility] Comment:Testing performed by : [facility], [address] [place] [address] Plt 111(L) 150 - 400 K/cumm [facility] Comment:Testing performed by : [facility], [address] [place] [address] MPV 7.3 6.8 - 10.4 fL [facility] Comment:Testing performed by : [facility], [address] [place] [address] RBC 4.32 4.30 - 5.80 M/cumm [facility] Comment:Testing performed by : [facility], [address] [place] [address] MCV 81.4 81.3 - 96.4 fL [facility] BJ Comment:Testing performed by : [facility], [address] [place] [address] MCH 26.4(L) 27.1 - 33.3 pg [facility] BJ Comment:Testing performed by : [facility], [address] [place] [address] MCHC 32.4 32.3 - 35.7 g/dL [facility] BJ Comment:Testing performed by : [facility], [address] [place] [address] RDW CV 14.8 11.1 - 14.9 % [facility]DO [facility] Comment:Testing performed by : [facility], [address] [place] [address] NRBC abs 0.00 0.00 - 0.01 K/cumm [facility] Comment:Testing performed by : [facility], [address] [place] [address] Blood 08/29/2024 10:3 4 AM CDT 08/29/2024 10:35 AM CDT us Stan Meza MD LAB BLOOD ORDERABLES Yolette banda Result [facility] Department [place] [address] * (ABNORMAL) Comprehensive metabolic panel (08/29/2024 10:34 AM CDT) Sodium 128(L) 135 - 145 mmol/L Potassium, pl 3.9 3.3 - 4.9 mmol/L [facility] Chloride 92(L) 97 - 110 mmol/L [facility] CO2 26 22 - 32 mmol/L [facility] Anion gap 10 2 - 15 mmol/L [facility] BUN 25 6 - 25 mg/dL [facility] Creatinine 1.08 0.80 - 1.30 mg/dL [facility] Glucose 108 70 - 199 mg/dL [facility] Comment: Interpretive Data Fasting glucose [...] 2022. Calcium 9.3 8.5 - 10.3 mg/dL [facility] Bilirubin, total 0.5 0.1 - 1.2 mg/dL [facility] Protein, pl 7.1 6.5 - 8.5 g/dL [facility] Albumin 3.5 3.5 - 5.0 g/dL [facility] Alk phos 136(H) 40 - 130 Units/L [facility] ALT 34 7 - 55 Units/L [facility] AST 25 10 - 50 Units/L [facility] Blood 08/29/2024 10:3 4 AM CDT 08/29/2024 10:38 AM CDT us Stan Meza MD LAB BLOOD ORDERABLES Yolette l Result [facility] Department [place] [address] documented in this encounter Visit Diagnoses Diagnosis 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) documented in this encounter Orders Appointment Requests Count Last Ordered Date Fi rst Ordered Date ONCBCN LAB APPOINTMENT 1 08/29/2024 documented in this encounter Care Teams Driver Salesman Relationship Specialty Start Date End Date Matthew Mccabe MD [address] [place] [address] PCP - General Family Medicine 05/13/24 Stan Meza MD [address] [facility] IM MEDICAL ONCOLOGY, [address] [place] [address] Medical Oncologist/Fagot Heater Helper Medical Oncology 06/28/24 documented as of this encounter
--- OUTSIDE RECORDS SUMMARY | 2024-10-30 07:03 | XMS_ITS | Encounter Summary ---
Author Organization [facility] Address [address] [place] [address] Phone Care Team Providers Care Director Food And Beverage Name Role Phone Matthew Mccabe MD Primary Care Prov ider Stan Meza MD Unavailable [phone] Encounter Details Date Type Department Care Team (Late st Contact Info) Description 09/04/2024 Social Work [facility] Oncology 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 He thanked SW and will reach out with any additional questionsor concerns. SE SUPERVISOR documented in this encounter Plan of Treatment Not on file documented as of this encounter Visit Diagnoses Not on filedocumented in this encounter Care Teams Director Food And Beverage Relationship Specialty Start Date End Date Matthew Mccabe MD [address] [place] [address] PCP - General Family Medicine 05/13/24 Stan Meza MD [address] [facility] IM MEDICAL ONCOLOGY, [address] [place] [address] Medical Oncologist/Caustic Operator Medical Oncology 06/28/24 documented as of this encounter
--- OUTSIDE RECORDS SUMMARY | 2024-10-30 07:03 | XMS_ITS | Encounter Summary ---
Author Organization [facility] Healthcare Address [address] [place] [address] Care Team Providers Care Senior Solutions Consultant Name Role Phone Matthew Mccabe MD Primary Care Prov ider Stan Meza MD Unavailable [phone] Encounter Details Date Type Department Care Team (Late st Contact Info) Description 08/15/2024 8:50 AM CDT - 08/15/2024 11:59 PM CDT Hospital Encounter [facility] Radiation Oncology [address] [facility] Advanced Medicine [facility] [place] [address] Jeffrey Ham MD [address] [facility] [address] [place] [address] Discharge Disposition: Discharge to home or self [...] on file 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 10 tablet 5 4 08/20/20 24 folic acid (FOLVITE) 1 mg tabletIndication s: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),Prophylaxi s for chemotherapy-ind uced neutropenia Take 1 tablet by mouth daily starting 7 days before the first treatment and continuing until 21 days after the last pemetrexed treatment 30 tablet 5 4 08/20/20 morphine ER (MS CONTIN) 30 mg 12 hr tablet Take 1 tablet (30 mg total) by mouth every 12 (twelve) hours 60 tablet 4 09/25/20 24 oxyCODONE (ROXICODONE) 5 mg immediate release tabletIndication s:Pain,cancer related pain Take 1-2 tablets (5-10 mg total) by mouth every 4 (four) hours as needed for pain 120 tablet 4 08/20/20 24 prochlorperazine (Compazine) 10 mg tabletIndication s: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),Prophylaxi s for chemotherapy-ind uced neutropenia Take 1 tablet (10 mg total) by mouth every 6 (six) hours as needed for nausea or vomiting Use first for nausea 120 tablet 3 4 08/29/20 24 documented as of this encounter Discharge Disposition Disposition Code Departure Means Destination Discharge to home or self care documented in this encounter Plan of Treatment Not on file documented as of this encounter Visit Diagnoses Not on filedocumented in this encounter Care Teams Senior Solutions Consultant Relationship Specialty Start Date End Date Matthew Mccabe MD [address] [place] [address] PCP - General Family Medicine 05/13/24 Stan Meza MD [address] [facility] MEDICAL ONCOLOGY, [address] [place] [address] Medical Oncologist/Registrar Museum Medical Oncology 06/28/24 documented as of this encounter
--- OUTSIDE RECORDS SUMMARY | 2024-10-30 07:03 | XMS_ITS | Encounter Summary ---
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 documented in this encounter Plan of Treatment Not on file documented as of this encounter Visit Diagnoses Not on filedocumented in this encounter Care Teams Aircraft Pneudraulics Repairer Relationship Specialty Start Date End Date Matthew Mccabe MD [address] [place] [address] PCP - General Family Medicine 05/13/24 Stan Meza MD [address] [facility] MEDICAL ONCOLOGY, [address] [place] [address] Medical Oncologist/Stripper Preliminary Medical Oncology 06/28/24 documented as of this encounter
--- OUTSIDE RECORDS SUMMARY | 2024-10-30 07:03 | XMS_ITS | Encounter Summary ---
Author Organization [facility] Address [address] [place] [address] Phone Care Team Providers Care Tax Accountant Name Role Phone Matthew Mccabe MD Primary Care Prov ider Stan Meza MD Unavailable [phone] Reason for Referral * Consultation (Routine) - Authorized Specialty Diagnoses / Procedures Referred By Contac t Referred To Contact Otolaryngology Diagnoses 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) Voice hoarseness Stan Meza MD [address] [place] [address] Phone: tel: fax: [facility] (All Locations) Referral ID Status Reason Start Date Expiration Date Visits Requested Visits Authorized [id number] Authorized Specialty Services Required 09/21/2025 1 1 Question Answer Please select the performing region: [facility] (All Locations) [167] # of visits: 1 Comments Voice hoarseness Reason for Visit * Oncology (Routine) - Authorized Specialty Diagnoses / Procedures Referred By Contac t Referred To Contact Oncology Diagnoses Malignant neoplasm of lung, unspecified laterality, unspecified part of lung (HCC) Manjit Corrales Chi, MD [address] [place] [address] Phone: tel: fax: [facility] [address] [facility] 7th [place] [address] [place] [address] Phone: tel: fax: Referral ID Status Reason Start Date Expiration Date Visits Requested Visits Authorized [id number] Authorized Specialty Services Required 06/28/2024 07/28/2025 99 99 Encounter Details Date Type Department Care Team (Late st Contact Info) Description 08/22/2024 11:00 AM CDT Office Visit [facility] [address] [facility] Floor 5 [place] [address] Stan Meza MD [address] [place] [address] 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) (Primary Dx); Voice hoarseness Social History Tobacco Use Types Packs/Day Years [...] on file 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 Gender Identity Not on file Sexual Orientation Not on file documented as of this encounter Last Filed Vital Signs Vital Sign Reading Time Taken Comments Blood Pressure 117/86 08/22/2024 11:00 AM CDT Pulse 131 08/22/2024 11:00 AM CDT Temperature - - Respiratory Rate 22 08/22/2024 11:00 AM CDT Oxygen Saturation 98% 08/22/2024 11:00 AM CDT Inhaled Oxygen Concentration - - Weight 95.3 kg (210 lb) 08/22/2024 11:00 AM CDT Height 167.6 cm (5' 5.98 ) 08/22/2024 11:00 AM C DT Body Mass Index 33.91 08/22/2024 11:00 AM CDT documented in this encounter Ordered Prescriptions Prescription Sig Dispense Quantity Refills Last Filled Start Date End Date dexAMETHasone (DECADRON) 4 mg tabletIndications:P rimary cancer of left lower lobe of lung (HCC) Take 8 mg (2 tabs) by mouth once on Day 2, then 8 mg (2 tabs) twice daily on Days 3 and 4. 10 tablet 3 08/22/2024 documented in this encounter Progress Notes * Stan Meza MD - 08/22/2024 11:00 AM CDT Images from the original note were not included. Oncology Progress Note Josafat Branch Umesh 1960 08/22/2024 Stan Meza MD Diagnosis: Poorly differentiated non-small cell lung cancer Stage IV Diagnosed 06/19/24 PD-L1 = Quantity not sufficient [facility] [place] Sequencing: Quantity not sufficient G360 History of [...] A, chromogranin, and synaptophysin. Patient came to [facility] on 07/18/24 for further management. Treatment History: Palliative radiation to the sternum and sacrum (2,000 cGy) from 08/12/24 to 08/19/24 Interval History: Mr. Calvo is a 63-year-old man with poorly differentiated non-small cell lung cancer. Patient received palliative radiation to the sacrum and sternum from 08/12/24 to 08/19/24 under the care of Dr. Jeffrey Ham. He returns today to start systemic treatment and has no new complaints. The sternal pain is minimally improved after the radiation. Past Medical History: Hypertension Mitral regurgitation [...] DAYS (Patient not taking: Reported on 08/01/2024) dexAMETHasone (DECADRON) 4 mg tablet Take 1 [...] as needed for pain 120 tablet 0 prochlorperazine (Compazine) 10 mg tablet Take 1 tablet (10 mg total) by mouth every 6 (six) hours as needed for nausea or vomiting Use first for nausea 120 tablet 3 senna-docusate (PERICOLACE) 8.6-50 mg Take 2 tablets [...] Exam: Vital Signs: Most Recent : Vitals: 08/22/24 1100 BP: 117/86 Pulse: (!) 131 Resp: 22 SpO2: 98% Weight: 95.3 kg (210 lb) Height: 167.6 cm (5' 5.98 ) Repeated pulse at 12:10 pm - 95. Constitutional: Patient is well-nourished, and in no [...] Laboratory: Lab Results Component Value Date WBC 9.0 08/22/2024 HGB 12.1 (L) 08/22/2024 HCT 37.7 (L) 08/22/2024 MCV 84.1 08/22/2024 LABPLAT 216 08/22/2024 Lab Results Component Value Date NEUTROABS 8.6 (H) 08/22/2024 Chemistry Component Value Date/Time SODIUM 131 (L) 08/22/2024 1110 POTASSIUM 4.2 08/22/2024 1110 CHLORIDE 97 08/22/2024 1110 CO2 26 08/22/2024 1110 BUNSER 12 08/22/2024 1110 CREATININE 0.66 (L) 08/22/2024 1110 GLUCOSE 156 08/22/2024 1110 Component Value Date/Time CALCIUM 9.3 08/22/2024 1110 ALKPHOS 145 (H) 08/22/2024 1110 AST 25 08/22/2024 1110 ALT 29 08/22/2024 1110 BILITOT 0.3 08/22/2024 1110 Radiology: CT 04/17/24 MRI Brain W WO [...] the sternum and sacrum on 08/19/24 and will start carboplatin plus nabPaclitaxel and pembrolizumab today. Although weak p40 staining does is not diagnostic forsquamous cell carcinoma, the absence of TTF1, NapsinA and CDX2 makes adenocarcinoma less likely andwhile a taxane would be indicated for both histologies, pemetrexed is less effective in squamous tumors. Rationale, risks and benefits have been reviewed with patient. Patient is not interested in port placement at this time. Patient will also be referred to Otolaryngology for further management ofthe hoarseness. Plan: C1 carboplatin plus nabPaclitaxel and pembrolizumab today Otolaryngology consult Continue current pain regimen RTC 08/29/24 for C1D8 documented in this encounter Miscellaneous Notes * Addendum Note - Andrea Hernandes RN - 08/22/2024 11:00 AM CDTAddended by: ANDREA HERNANDES on: 08/22/2024 12:19 PM Modules accepted: Orders * Addendum Note - Stan Meza MD - 08/22/2024 11:00 AM CDTAddended by: STAN MEZA on: 08/22/2024 12:20 PM Modules accepted: Orders * Addendum Note - Andrea Hernandes RN - 08/22/2024 11:00 AM CDTAddended by: ANDREA HERNANDES on: 08/22/2024 12:21 PM Modules accepted: Orders documented in this encounter Plan of Treatment Scheduled Referrals Name Type Priority Associated Diagnoses Order Schedule Ambulatory referral to ENT Outpatient Referral Routine 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) Voice hoarseness Expected: 08/29/2024 (Approximate), Expires: 08/22/2025 documented as of this encounter Results * (ABNORMAL) Comprehensive metabolic panel (08/29/2024 10:34 AM CDT) Sodium 128(L) 135 - 145 mmol/L Potassium, pl 3.9 3.3 - 4.9 mmol/L [facility] Chloride 92(L) 97 - 110 mmol/L [facility] CO2 26 22 - 32 mmol/L [facility] Anion gap 10 2 - 15 mmol/L [facility] BUN 25 6 - 25 mg/dL [facility] Creatinine 1.08 0.80 - 1.30 mg/dL [facility] Glucose 108 70 - 199 mg/dL [facility] Comment: Interpretive Data Fasting glucose [...] 2022. Calcium 9.3 8.5 - 10.3 mg/dL [facility] Bilirubin, total 0.5 0.1 - 1.2 mg/dL [facility] Protein, pl 7.1 6.5 - 8.5 g/dL [facility] Albumin 3.5 3.5 - 5.0 g/dL [facility] Alk phos 136(H) 40 - 130 Units/L [facility] ALT 34 7 - 55 Units/L [facility] AST 25 10 - 50 Units/L [facility] Blood 08/29/2024 10:3 4 AM CDT 08/29/2024 10:38 AM CDT us Stan Meza MD LAB BLOOD ORDERABLES Yolette banda Result [facility] Department [place] [address] * (ABNORMAL) CBC with auto differential (08/29/2024 10:34 AM CDT) WBC 4.5 3.8 - 9.9 K/cumm Comment:Testing performed by : [facility], [address] [place] [address] Hgb 11.4(L) 13.0 - 17.5 g/dL [facility] Comment:Testing performed by : [facility], [address] [place] [address] Hct 35.2(L) 38.9 - 50.3 % [facility] Comment:Testing performed by : [facility], [address] [place] [address] Plt 111(L) 150 - 400 K/cumm [facility] Comment:Testing performed by : [facility], [address] [place] [address] MPV 7.3 6.8 - 10.4 fL [facility] Comment:Testing performed by : [facility], [address] [place] [address] RBC 4.32 4.30 - 5.80 M/cumm [facility] Comment:Testing performed by : [facility], [address] [place] [address] MCV 81.4 81.3 - 96.[address] [facility] Comment:Testing performed by : [facility], [address] [place], [place] [id number] MCH 26.4(L) 27.1 - 33.[address] [facility] Comment:Testing performed by : [facility], [address] [place], [place] [id number] MCHC 32.4 32.3 - 35.7 g/dL [facility] Comment:Testing performed by : [facility], [address] [place], [place] [id number] RDW CV 14.8 11.1 - 14.9 % [facility] Comment:Testing performed by : [facility], [address] [place], [place] [id number] NRBC abs 0.00 0.00 - 0.01 K/cumm [facility] Comment:Testing performed by : [facility], [address] [place], [place] [id number] Blood 08/29/2024 10:3 4 AM CDT 08/29/2024 10:35 AM CDT Stan Meza MD LAB BLOOD ORDERABLES Yolette l Result Performing Organization Address City/[facility]/ZIP Co de Phone Number [facility] [place] [address] * (ABNORMAL) Thyroid Function [place] (08/22/2024 11:10 AM CDT) TSH 0.27(L) 0.30 - 4.20 mcIUnit/mL Blood 08/22/2024 11:1 0 AM CDT 08/22/2024 11:28 AM CDT Stan Meza MD LAB BLOOD ORDERABLES Yolette l Result [facility] Department [place] [address] * (ABNORMAL) Comprehensive metabolic panel (08/22/2024 11:10 AM CDT) Sodium 131(L) 135 - 145 mmol/L Potassium, pl 4.2 3.3 - 4.9 mmol/L [facility] Chloride 97 97 - 110 mmol/L [facility] CO2 26 22 - 32 mmol/L [facility] Anion gap 8 2 - 15 mmol/L [facility] BUN 12 6 - 25 mg/dL [facility] Creatinine 0.66(L) 0.80 - 1.30 mg/dL [facility] Glucose 156 70 - 199 mg/dL [facility] Comment: Interpretive Data Fasting glucose [...] 2022. Calcium 9.3 8.5 - 10.3 mg/dL [facility] Bilirubin, total 0.3 0.1 - 1.2 mg/dL [facility] Protein, pl 7.5 6.5 - 8.5 g/dL [facility] Albumin 3.6 3.5 - 5.0 g/dL [facility] Alk phos 145(H) 40 - 130 Units/L [facility] ALT 29 7 - 55 Units/L [facility] AST 25 10 - 50 Units/L [facility] Blood 08/22/2024 11:1 0 AM CDT 08/22/2024 11:28 AM CDT us Stan Meza MD LAB BLOOD ORDERABLES Yolette l Result [facility] Department [place] [address] * (ABNORMAL) CBC with auto differential (08/22/2024 11:10 AM CDT) WBC 9.0 3.8 - 9.9 K/cumm Comment:Testing performed by : [facility], [address] [place] [address] Hgb 12.1(L) 13.0 - 17.5 g/dL [facility] Comment:Testing performed by : [facility], [address] [place] [address] Hct 37.7(L) 38.9 - 50.3 % [facility] Comment:Testing performed by : [facility], [address] [place] [address] Plt 216 150 - 400 K/cumm [facility] Comment:Testing performed by : [facility], [address] [place] [address] MPV 7.3 6.8 - 10.4 fL [facility] Comment:Testing performed by : [facility], [address] [place] [address] RBC 4.49 4.30 - 5.80 M/cumm [facility] Comment:Testing performed by : [facility], [address] [place] [address] MCV 84.1 81.3 - 96.4 fL [facility] Comment:Testing performed by : [facility], [address] [place] [address] MCH 27.0(L) 27.1 - 33.3 pg [facility] Comment:Testing performed by : [facility], [address] [place] [address] MCHC 32.2(L) 32.3 - 35.7 g/dL [facility] Comment:Testing performed by : [facility], [address] [place] [address] RDW CV 14.5 11.1 - 14.9 % [facility] Comment:Testing performed by : [facility], [address] [place] [phone] NRBC abs 0.00 0.00 - 0.01 K/cumm [facility] Comment:Testing performed by : [facility], [address] [place] [phone] Blood 08/22/2024 11:1 0 AM CDT 08/22/2024 11:25 AM CDT us Stan Meza MD LAB BLOOD ORDERABLES Yolette l Result [facility] Department [place] [address] documented in this encounter Visit Diagnoses Diagnosis 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)- Primary Voice hoarseness Dysphonia documented in this encounter Discontinued Medications Medication Sig Discontinue Reason Start Date End Da te dexAMETHasone (DECADRON) 4 mg tabletIndications:Prima ry cancer of left lower lobe of lung (HCC),Prophylaxis for chemotherapy-induced neutropenia Take 2 tablets (8 mg) by mouth daily with breakfast for 5 days starting the day prior to each treatment cycle. 08/15/2024 08/20/2024 folic acid (FOLVITE) 1 mg tabletIndications:Prima ry cancer of left lower lobe of lung (HCC),Prophylaxis for chemotherapy-induced neutropenia Take 1 tablet by mouth daily starting 7 days before the first treatment and continuing until 21 days after the last pemetrexed treatment 08/15/2024 08/20/2024 dexAMETHasone (DECADRON) 4 mg tablet Take 1 tablet (4 mg total) by mouth daily with breakfast Duplicate order 08/01/2024 08/22/2024 documented as of this encounter Orders Appointment Requests Count Last Ordered Date Fi rst Ordered Date ONCBCN CLINIC APPOINTMENT REQUEST 1 024 ONCBCN LAB APPOINTMENT 1 08/29/2024 ONCBCN RETURN CHEMO 3HRS 1 08/22/2024 documented in this encounter Care Teams Tax Accountant Relationship Specialty Start Date End Date Matthew Mccabe MD [address] [place] [address] PCP - General Family Medicine 05/13/24 Stan Meza MD [address] [facility] DIV MEDICAL ONCOLOGY, [address] [place] [address] Medical Oncologist/Pattern Attendant Medical Oncology 06/28/24 documented as of this encounter
--- OUTSIDE RECORDS SUMMARY | 2024-10-30 07:03 | XMS_ITS | Encounter Summary ---
Author Organization [facility] Address [address] [place] [address] Care Team Providers Care Home Theatre Technician Name Role Phone Matthew Mccabe MD Primary Care Prov ider Stan Meza MD Unavailable [phone] Encounter Details Date Type Department Care Team (Late st Contact Info) Description 08/16/2024 11:15 AM CDT - 08/16/2024 11:59 PM CDT Hospital Encounter [facility] Radiation Oncology [address] [facility] Advanced Medicine [facility] [place] [address] Jeffrey Ham MD [address] 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
--- OUTSIDE RECORDS SUMMARY | 2024-10-30 07:03 | XMS_ITS | Encounter Summary ---
Author Organization [facility] Address [address] [place] [address] Phone Care Team Providers Care Push Button Switch Assembler Name Role Phone Matthew Mccabe MD Primary Care Prov ider Stan Meza MD Unavailable [phone] Reason for Visit * Reason Onset Date Comments cough and hoarseness 08/23/2024 Encounter Details Date Type Department Care Team (Late st Contact Info) Description 08/23/2024 Telephone [facility] Oncology [address] [place] [phone] Kaycee Jenkins RMA cough and hoarseness Social History Tobacco Use Types Packs/Day [...] on file 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 Returned call and LVM advising that referral to Otolaryngology was placed yesterday and they should be contacting him soon to set that up, but he should return call if he has additional questions. *TracyS documented in this encounter Plan of Treatment Not on file documented as of this encounter Visit Diagnoses Not on filedocumented in this encounter Care Teams Push Button Switch Assembler Relationship Specialty Start Date End Date Matthew Mccabe MD [address] [place] [address] PCP - General Family Medicine 05/13/24 Stan Meza MD [address] [facility] MEDICAL ONCOLOGY, [address] [place] [address] Medical Oncologist/Dip Guider Stoves Medical Oncology 06/28/24 documented as of this encounter
--- OUTSIDE RECORDS SUMMARY | 2024-10-30 07:03 | XMS_ITS | Encounter Summary ---
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 SW let him know that SW cannot assist with this as it is not for an appointment with Dr. Meza and encouragedhim to contact his provider and request assistance from their rn social work. He agreed and thanked RAVINDER. documented in this encounter Plan of Treatment Not on file documented as of this encounter Visit Diagnoses Not on filedocumented in this encounter Additional Health Concerns Infection Onset Date Last Indicated Resolved Time COVID: Suspected 08/29/2024 08/29/2024 08/29/2024 1:59 PM CDT documented as of this encounter Care Teams Office Clerk Relationship Specialty Start Date End Date Matthew Mccabe MD [address] [place] [address] PCP - General Family Medicine 05/13/24 Stan Meza MD [address] [facility] MEDICAL ONCOLOGY, [address] [place] [address] Medical Oncologist/Nurse Monitoring Medical Oncology 06/28/24 documented as of this encounter
--- OUTSIDE RECORDS SUMMARY | 2024-10-30 07:03 | XMS_ITS | Encounter Summary ---
Author Organization 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
--- OUTSIDE RECORDS SUMMARY | 2024-10-30 07:03 | XMS_ITS | Encounter Summary ---
Author Organization [facility] Healthcare Address [address] [place] [address] Care Team Providers Care Upper Doubler Name Role Phone Matthew Mccabe MD Primary Care Prov ider Stan Meza MD Unavailable [phone] Reason for Visit * Reason Comments Irregular Heart Beat Encounter Details Date Type Department Care Team (Late st Contact Info) Description 08/29/2024 12:05 PM CDT - 08/29/2024 4:14 PM CDT Emergency [facility] Emergency Department [address] [place] [address] Olivia Manley MD [address] [place] [address] Maycol Myers MD [address] [place] [address] Atrial fibrillation, unspecified type (HCC) (Primary Dx); Malignant neoplasm of upper lobe of left lung (HCC); Left against medical advice Discharge Disposition: Left Against Medical Advice Social History Tobacco Use Types Packs/Day Years [...] on file Legal Sex Male 6:04 PM [employer] Gender Identity Not on file Sexual Orientation Not on file documented as of this encounter Last Filed Vital Signs Vital Sign Reading Time Taken Comments Blood Pressure 106/94 08/29/2024 4:00 PM CDT Pulse 126 08/29/2024 4:00 PM CDT Temperature 36.6 ??C (97.8 ??F) 08/29/2024 12:10 PM C DT Respiratory Rate 21 08/29/2024 4:00 PM CDT Oxygen Saturation 96% 08/29/2024 4:00 PM CDT Inhaled Oxygen Concentration - - Weight 93 kg (205 lb) 08/29/2024 12:07 PM CDT Height 167.6 cm (5' 6 ) 08/29/2024 12:07 PM CDT Body Mass Index 33.09 08/29/2024 12:07 PM CDT documented in this encounter Discharge Instructions * Discharge Instructions* Manjit Espinoza MD - 08/29/2024 3:46 PM CDT Follow up with your oncologist and primary care doctor for further evaluation tomorrow (call their office). You have been given a dose of a blood thinning medication here and will need to start Eliquis (starting tomorrow) to help decrease the chance of stroke. Return back to the emergency department if you have worsening symptoms, chest pain, shortness of breath, numbness or weakness, or other concerning symptoms. * Attachments The following attachments cannot be sent through Care Everywhere. * Lung Cancer (Inpatient Care) (Swiss) * Fibrillation, Atrial (Swiss) documented in this encounter Medications at Time [...] 09/25/20 24 documented as of this encounter Ordered Prescriptions Prescription Sig Dispense Quantity Refills Last Filled Start Date End Date apixaban (ELIQUIS) 5 mg tablet Take 1 tablet (5 mg total) by mouth 2 (two) times a day 60 tablet 08/29/2024 documented in this encounter Discharge Disposition Disposition Code Departure Means Destination Comment s Left Against Medical Advice documented in this encounter Consult Notes * Kiki Fischer LCSW - 08/29/2024 4:14 PM CDTAssociated Order(s): IP CONSULT TO SOCIAL WORK SW consulted for transportation assistance. SW reviewed EMR and attempted to meet with pt in ED lobby but pt not present. SW available if pt returns. MANAV Cavazos LCSW documented in this encounter ED Notes * Maycol Myers MD - 08/29/2024 12:28 PM CDT Chief Complaint Patient presents with Irregular Heart Beat HPI Josafat Calvo is a 63 y.o. male with a PMHx of with a history of lung cancer, received radiation and currently on chemo, presents with new onset A-fib. The patient presented to get a chemo infusion and was found to have an elevated HR and sent to the emergency department. Per patient, he has had chronic shortness of breath, cough, back pain without significant changes. He has felt increased generalized weakness and has had trouble walking today due to the weakness. No fevers, no trauma. Patient Active Problem List Diagnosis Date Noted Cancer related pain 08/15/2024 Prophylaxis for chemotherapy-induced neutropenia 08/01/2024 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) 07/17/2024 Localized enlarged lymph nodes 05/28/2024 Hilar mass 05/28/2024 Past Medical History: Diagnosis Date Arthritis Asthma BPH (benign prostatic hyperplasia) CHF (congestive heart failure) (CMS/HCC) (HCC) COPD (chronic obstructive pulmonary disease) (HCC) Coronary artery disease Depression Glaucoma Hypercholesteremia Hypertension Lung cancer (HCC) left lower lobe Metastatic cancer (HCC) metastases to brain, lymph nodes, bone PVD (peripheral vascular disease) (HCC) Sleep apnea Vocal cord paralysis Past Surgical History: Procedure Laterality Date BRONCHOSCOPY Left 06/19/2024 w/ lymph node biopsy FLUORO GUIDED ASPIRATION OR INJECTION LARGE JOINT BILATERAL Bilateral 10/14/2020 FLUORO GUIDED ASPIRATION OR INJECTION LARGE JOINT BILATERAL Bilateral 06/26/2019 FLUORO GUIDED ASPIRATION OR INJECTION LARGE JOINT BILATERAL Bilateral 06/26/2019 REPLACEMENT TOTAL KNEE Left Family History Problem Relation Age of Onset Thyroid disease Mother Cancer Mother Heart disease Father Heart failure Father Asthma Sister Cancer Brother Stroke Maternal Grandmother Diabetes Maternal Grandmother Social History Tobacco Use Smoking status: Every Day Current packs/day: 1.00 Types: Cigarettes Passive exposure: Past Smokeless tobacco: Never Substance and Sexual Activity Drug use: Yes Types: Marijuana, Tobacco Sexual activity: Defer Partners: Female Alcohol Use: Not At Risk (08/01/2024) AUDIT-C Frequency of Alcohol Consumption: 2-4 times a month Average Number of Drinks: 1 or 2 Frequency of Binge Drinking: Never Social History Social History Narrative Not on file Review of Systems All other systems reviewed and are negative Physical Exam ED Triage Vitals Temp Pulse Resp BP SpO2 08/29/24 1210 08/29/24 1210 08/29/24 1210 08/29/24 1210 08/29/24 1210 36.6 ??C (97.8 ??F) (!) 130 23 (!) 129/111 97 % Temp src Heart Rate Source Patient Position BP Location FiO2 (%) 08/29/24 1210 -- -- -- -- Oral Height Height Method Weight Weight Method 08/29/24 1207 08/29/24 1207 08/29/24 1207 08/29/24 1207 1.676 m (5' 6 ) Stated 93 kg (205 lb) Stated GEN: Awake, cooperative HEAD: Atraumatic, scalp normal EYES: EOMI ENT: Moist MM NECK: FROM RESP: Respiratory rate mildly increased, no respiratory distress HEART: Tachycardia, regular rhythm ABDOMEN: Abdomen non-distended MSK: No leg swelling SKIN: Normal color, no rash NEURO: No focal deficits MDM DDx: Pulmonary embolism, electrolyte abnormality, ACS, pneumonia, viral illness Plan: Laboratory testing, CT imaging, metoprolol Dispo: Likely admit In consideration of the above differential diagnosis, the following orders were placed while the patient was in the Emergency Department. See ED course for pertinent results and imaging interpretation. 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 ECG/medicine tests: ordered. Risk Prescription drug management. Attending Summary of Care ED Course as of 08/29/24 1702 Time: 08/29 1230 Comment: ATTENDING PHYSICIAN NOTE: I have seen and examined this patient, I have discussed/reviewed the history, physical exam and assessment with the resident. We are in agreement with treatment plan except as I have noted. HPI: 63 y.o. M with PMH HTN, PE in 2010 no longer on AC, recently diagnosed lung cancer with care just established with Oncology here, presents to the ED with several days of progressive generalized weakness, found to be in AFib in the Cancer Clinic today so sent here for further care. Patient denies shortness of breath, nausea, vomiting, fever, chills, URI symptoms, abdominal pain, change in bowel or bladder habits, lower extremity pain or swelling. He does note that he was feeling unsteady because of his generalized weakness and started using a cane which he does not typically use, and was still worried he might fall, but has not had syncope or falls History Information obtained from: patient only Chart note(s) reviewed to augment HPI: most recent clinic note which revealed/confirmed past history above Exam: VS reviewed Constitutional: NAD, alert ENT: normal voice, MMM Resp: CTAB, no added sounds Card: Irregularly irregular, no added sounds Extremities: no LE edema, equal pulses all ext Abd: abd soft, non distended, non tender Skin: WWP, no rash Neuro: A&Ox3, sensory motor exam intact bilaterally, normal speech Psych: calm, normal mood/affect Assessment: 63 y.o.M with PMH HTN, PE, recently diagnosed lung cancer, here with new AFib with patient stable with complaint of generalized weakness but otherwise well-appearing with exam benign Social Determinants of Health affecting care: None Differential diagnoses: - high prob- AFib secondary to underlying lung cancer - moderate prob- PE - low prob- ACS, thyroid dysfunction Plan: 1) Labs: Cardiac labs 2) Imaging/ECG: ECG, chest x-ray, CT PE 3) Therapeutics: Rate control 4) disposition pending results and clinical course - anticipate likely admission By: Olivia Manley MD Time: 08/29 1310 Comment: Heart rate 100-110 By: Manjit Espinoza MD Time: 08/29 6767 Comment: [facility], I have not seen him By: Maycol Myers MD Time: 08/29 4399 Comment: Had an extensive discussion with the patient about admission to the hospital. Benefits of staying and treatment vs risks of leaving including stroke, TX, LOC, were discussed. The patient is Ox4 and demonstrates capacity and verbalizes understanding of risks. Will treat with a dose oflovenox and eliquis Rx By: Manjit Espinoza MD Time: 08/29 1600 Comment: Onc Note 08/29/24 - today 1100 Mr. Calvo is a 63-year-old man who [...] A, chromogranin, and synaptophysin. Patient came to [facility] on 07/18/24 for further management. Treatment History: 1. Palliative radiation to the sternum and sacrum (2,000 cGy) from 08/12/24 to 08/19/24 2. Carboplatin plus nab-paclitaxel and pembrolizumab C1D1: 08/22/24 [...] morning feeling strange . Past Medical History: 1. Hypertension 2. Mitral regurgitation 3. Peripheral vascular disease 4. COPD 5. Glaucoma 6. Hypertension 7. Right knee replacement By: Maycol Myers MD Time: 08/29 1601 Comment: Onc note today 08/29/24 part 2 Mr. Calvo is a 63-year-old man with [...] exam. He was transported via ambulance to [facility] emergency room via EMS at 1145. Plan: 1. Hold C1D8 nab-paclitaxel today 2. Evaluation in the [facility] emergency room 3. RTC 09/05/24 I reviewed his symptoms requiring emergency room evaluation with his brother, Paolo, and his brother, Ravin, via telephone. Paolo should be the point of contact ([phone]). Shari Quintana, MSN, TAPE STRINGER-C, AOCNP Nurse Practitioner in collaboration with Dr. Stan Meza Division of Oncology By: Maycol Myers MD Atrial fibrillation, unspecified type (HCC) Malignant neoplasm of upper lobe of left lung (HCC) Left against medical advice I have seen and examined the patient on 08/29/2024. I agree with the findings and plan of care as documented in the resident's note. Maycol Myers MD 08/29/24 1703 * Eduardo Carter, ALYX - 08/29/2024 12:08 PM CDT Pt BIBEMS from [facility] c/o new onset A Fib with RVR. Pt has lung cxr and arrived to [facility] today to get chemo tx where a fib was found. Pt stated he felt dizzy and vomited yesterday and feels dizzy again today. No previous hx of a fib. Pt A&Ox4 during intake. -blood thinners. * Elena Ortiz RN - 08/29/2024 12:06 PM CDT Bed: [facility] Expected date: Expected time: Means of arrival: Comments: Medic 6 Elena Ortiz RN 08/29/24 1206 documented in this encounter Miscellaneous Notes * ED Re-evaluation Note - Angelika Ann MD - 08/29/2024 2:33 PM CDT ED Re-evaluation TRANSITION OF CARE: I, Angelika Ann MD, am taking signout under supervision of the attending physician. I have reviewed all pertinent vital signs, allergies, and history available in the chart. Summary: 63 y.o. male PMH lung cancer on radiation and chemo, p/w afib, found at cancer clinic. Given metop for rate control. Pending: leaving? Dispo: AMA Vitals: 08/29/24 1410 BP: 104/78 Pulse: 115 Resp: 15 Temp: SpO2: ED Course as of 08/29/24 1602 Time: 08/29 1230 Comment: ATTENDING PHYSICIAN NOTE: I have seen and examined this patient, I have discussed/reviewed the history, physical exam and assessment with the resident. We are in agreement with treatment plan except as I have noted. HPI: 63 y.o. M with PMH HTN, PE in 2010 no longer on AC, recently diagnosed lung cancer with care just established with Oncology here, presents to the ED with several days of progressive generalized weakness, found to be in AFib in the Cancer Clinic today so sent here for further care. Patient denies shortness of breath, nausea, vomiting, fever, chills, URI symptoms, abdominal pain, change in bowel or bladder habits, lower extremity pain or swelling. He does note that he was feeling unsteady because of his generalized weakness and started using a cane which he does not typically use, and was still worried he might fall, but has not had syncope or falls History Information obtained from: patient only Chart note(s) reviewed to augment HPI: most recent clinic note which revealed/confirmed past history above Exam: VS reviewed Constitutional: NAD, alert ENT: normal voice, MMM Resp: CTAB, no added sounds Card: Irregularly irregular, no added sounds Extremities: no LE edema, equal pulses all ext Abd: abd soft, non distended, non tender Skin: WWP, no rash Neuro: A&Ox3, sensory motor exam intact bilaterally, normal speech Psych: calm, normal mood/affect Assessment: 63 y.o.M with PMH HTN, PE, recently diagnosed lung cancer, here with new AFib with patient stable with complaint of generalized weakness but otherwise well-appearing with exam benign Social Determinants of Health affecting care: None Differential diagnoses: - high prob- AFib secondary to underlying lung cancer - moderate prob- PE - low prob- ACS, thyroid dysfunction Plan: 1) Labs: Cardiac labs 2) Imaging/ECG: ECG, chest x-ray, CT PE 3) Therapeutics: Rate control 4) disposition pending results and clinical course - anticipate likely admission By: Olivia Manley MD Time: 08/29 1310 Comment: Heart rate 100-110 By: Manjit Espinoza MD Time: 08/29 1517 Comment: Lucia Mckeon pt is leaving AMA, I have not seen him By: Maycol Myers MD Time: 08/29 1539 Comment: Had an extensive discussion with the patient about admission to the hospital. Benefits of staying and treatment vs risks of leaving including stroke, TX, LOC, were discussed. The patient is Ox4 and demonstrates capacity and verbalizes understanding of risks. Will treat with a dose oflovenox and eliquis Rx By: Manjit Espinoza MD Time: 08/29 1600 Comment: Onc Note 08/29/24 - today 1100 Mr. Calvo is a 63-year-old man who [...] A, chromogranin, and synaptophysin. Patient came to [facility] on 07/18/24 for further management. Treatment History: 1. Palliative radiation to the sternum and sacrum (2,000 cGy) from 08/12/24 to 08/19/24 2. Carboplatin plus nab-paclitaxel and pembrolizumab C1D1: 08/22/24 [...] morning feeling strange . Past Medical History: 1. Hypertension 2. Mitral regurgitation 3. Peripheral vascular disease 4. COPD 5. Glaucoma 6. Hypertension 7. Right knee replacement By: Maycol Myers MD Time: 08/29 1601 Comment: Onc note today 08/29/24 part 2 Mr. Calvo is a 63-year-old man with [...] exam. He was transported via ambulance to [facility] emergency room via EMS at 1145. Plan: 1. Hold C1D8 nab-paclitaxel today 2. Evaluation in the [facility] emergency room 3. RTC 09/05/24 I reviewed his symptoms requiring emergency room evaluation with his brother, Paolo, and his brother, Ravin, via telephone. Paolo should be the point of contact ([phone]). Shari Quintana, MSN, TAPE STRINGER-C, AOCNP Nurse Practitioner in collaboration with Dr. Stan Meza Division of Oncology By: Maycol Myers MD Final diagnoses: None Angelika Ann MD Resident 08/29/24 1515 * ED Procedure Note - Olivia Manley MD - 08/29/2024 2:00 PM CDT Associated Order(s): Critical Care Procedure Critical Care Performed by: Olivia Manley MD Authorized by: Maycol Myers MD Critical care provider statement: As reflected in the history, physical exam, orders, notes, and/or MDM, I was personally present while the patient was critically ill and provided critical care services for 31 minutes, excluding timeinvolved in separately billable procedures. Critical care was necessary to treat or prevent imminent or life- threatening deterioration of the following condition(s): atrial fibrillation Critical care was time spent by me providing the following: continuous telemetry, continuous pulse oximetry, interpretation of bedside monitors, imaging, and arterial/venous lab draws and serial bedside patient exams initiation of rate controlling agent I provided emergent necessary critical care medicine [...] spent time documenting in the medical record. Olivia Manley MD 08/29/24 1602 * ED Procedure Note - Olivia Manley MD - 08/29/2024 1:47 PM CDT Associated Order(s): ECG 12 lead Procedure ECG 12 lead Date/Time: 08/29/2024 1:47 [...] obtained for tachycardia Olivia Manley MD 08/29/24 1347 documented in this encounter Plan of Treatment Not on file documented as of this encounter Procedures Procedure Name Priority Date/Time Associated Diagnosis Comments TROPONIN I HIGH-SENSITIVITY 2-HOUR Timed 08/29/2024 2:23 PM CDT URINALYSIS AND REFLEX TO MICROSCOPIC AND CULTURE STAT 08/29/2024 2:23 PM CDT OK CRITICAL CARE ILL/INJURED PATIENT INIT 30-74 MIN Routine 08/29/2024 2:[address] CHEST PE W CONTRAST ED 1:50 PM CDT ECG 12-LEAD STAT 08/29/2024 1:47 PM CDT POCUS CARDIAC 08/29/2024 1:34 PM CDT TROPONIN I HIGH-SENSITIVITY SERIES (BASELINE, 2HR, 4HR, 6HR) STAT 08/29/2024 12:27 PM CDT SEPSIS LACTATE WITH REFLEX STAT 08/29/2024 12:27 PM CDT EGFR STAT 08/29/2024 12:27 PM CDT DIFFERENTIAL AUTO STAT 08/29/2024 12: 27 PM CDT THYROID FUNCTION CASCADE STAT 08/29/2024 12:27 PM CDT RESPIRATORY PATHOGEN PANEL Routine 08/29/2024 12:27 PM CDT CBC WITH AUTO DIFFERENTIAL STAT 08/29/2024 12:27 PM CDT COMPREHENSIVE METABOLIC PANEL STAT 08/29/2024 12:27 PM CDT documented in this encounter Results * (ABNORMAL) Troponin I high-sensitivity 2-hour (08/29/2024 2:23 PM CDT) Trop I hs 37(H) <=35 ng/L Comment: Interpretive Data For further hscTnI resources including the diagnostic algorithm and an aid in interpretation, copy and paste this link: https://bjhlab.testcatalog.org/show/hsTrop-1 Current Interpretive Data last revised 2020. Trop I hs delta 4 ng/L [facility] Trop I hs interp Insignificant [facility] Blood 08/29/2024 2:23 PM CDT 08/29/2024 2:50 PM CDT us Manjit Espinoza MD LAB BLOOD ORDERABLES Final Result [facility] Department [place] [address] * Urinalysis reflex to microscopic and culture Urine (08/29/2024 2:23 PM CDT) Color, ur Straw Yellow Clarity, ur Clear Clear [facility] Specific gravity, ur 1.009 1.003 - 1.030 [facility] pH, urine 6.0 [facility] Comment: Interpretive Data ? Urine pH is affected by diet, medications, systemic acid-base disturbances, and renal tubular function. ??pH may affect urinary stone formation. ??For example, urine pH below 6.0 may help reduce the tendency for calcium phosphate stones and pH greater than 6.0 may reduce the tendency for uric acid stone formation. Source: [facility] Current Interpretive Data was last revised on 2017 Protein, ur ql Negative Negative [facility] Glucose, ur ql Negative Negative [facility] Ketones, ur Negative Negative [facility] Bilirubin, ur Negative Negative [facility] Blood, ur Negative Negative [facility] Urobilinogen, ur <2.0 <2.0 mg/dL [facility] Nitrite, ur Negative Negative [facility] Leukocyte esterase, ur Negative Negative [facility] UA reflex comment Reflex conditions for microscopic UA and culture not met. [facility] Urine 08/29/2024 2:23 PM CDT 08/29/2024 2:43 PM CDT Manjit Espinoza MD LAB MICROBIOLOGY - GENERAL ORDERABLES Final Result [facility] Department [place] [address] * OK CRITICAL CARE ILL/INJURED PATIENT INIT 30-74 MIN [...] obtained for tachycardia Olivia Manley MD 08/29/24 2266 us Manjit Espinoza MD ECG ORDERABLES Final Resu lt [facility] * POCUS Cardiac (08/29/2024 1:34 PM CDT) [...] dysfunction Electronically signed by Eli Walker on Monday, August 31, 2024 at 8:18 PM I [...] MD POCUS ORDERABLES Final Resu lt * eGFR (08/29/2024 12:27 PM CDT) [facility] Signature eGFR 81 >=60 mL/min/1. 73 m2 Comment: [...] Espinoza MD LAB BLOOD ORDERABLES Final Result [facility] Department [place] [address] * (ABNORMAL) Differential, auto (08/29/2024 12:27 PM CDT) Pathologist [facility] Neutrophil abs 3.7 1.5 - 6.5 K/cumm Imm gran abs 0.1 0.0 - 0.1 K/cumm [facility] Lymphocyte abs 0.4(L) 0.8 - 3.3 K/cumm [facility] Monocyte abs 0.2 0.2 - 0.8 K/cumm [facility] Eosinophil abs 0.1 0.0 - 0.5 K/cumm [facility] Basophil abs 0.0 0.0 - 0.1 K/cumm [facility] Neutrophil pct 84.2 % [facility] Comment: Interpretive Data Percent cell count reference ranges are not reported, since discordance with absolute values may lead to misinterpretation of CBC data. Current Interpretive Data was last revised on 2018. Imm gran pct 1.1 % [facility] Comment: Interpretive Data Percent cell count reference ranges are not reported, since discordance with absolute values may lead to misinterpretation of CBC data. Current Interpretive Data was last revised on 2018. Lymphocyte pct 9.0 % [facility] Comment: Interpretive Data Percent cell count reference ranges are not reported, since discordance with absolute values may lead to misinterpretation of CBC data. Current Interpretive Data was last revised on 2018. Monocyte pct 4.4 % [facility] Comment: Interpretive Data Percent cell count reference ranges are not reported, since discordance with absolute values may lead to misinterpretation of CBC data. Current Interpretive Data was last revised on 2018. Eosinophil pct 1.1 % [facility] Comment: Interpretive Data Percent cell count reference ranges are not reported, since discordance with absolute values may lead to misinterpretation of CBC data. Current Interpretive Data was last revised on 2018. Basophil pct 0.2 % [facility] Comment: Interpretive Data Percent cell count reference ranges are not reported, since discordance with absolute values may lead to misinterpretation of CBC data. Current Interpretive Data was last revised on 2018. Blood 08/29/2024 12:2 7 PM CDT 08/29/2024 12:43 PM CDT us Manjit Espinoza MD LAB BLOOD ORDERABLES Final Result [facility] Department of Laboratories [place], [place] [id number] * Respiratory pathogen panel Nasopharyngeal (08/29/2024 12:27 PM CDT) Influenza A RNA Not Detected Not Detected Influenza B RNA Not Detected Not Detected [facility] RSV RNA Not Detected Not Detected [facility] [facility] COVID-19 RNA Not Detected Not Detected [facility] Coronavirus 229E RNA Not Detected Not Detected [facility] Coronavirus HKU1 RNA Not Detected Not Detected [facility] Coronavirus NL63 RNA Not Detected Not Detected [facility] Coronavirus OC43 RNA Not Detected Not Detected [facility] Adenovirus DNA Not Detected Not Detected [facility] Metapneumovirus RNA Not Detected Not Detected [facility] Rhinovirus/Enterov irus RNA Not Detected Not Detected [facility] Parainfluenza 1 RNA Not Detected Not Detected [facility] Parainfluenza 2 RNA Not Detected Not Detected [facility] Parainfluenza 3 RNA Not Detected Not Detected [facility] Parainfluenza 4 RNA Not Detected Not Detected [facility] B. pertussis DNA Not Detected Not Detected [facility] B. parapertussis DNA Not Detected Not Detected [facility] C. pneumoniae DNA Not Detected Not Detected [facility] M. pneumoniae DNA Not Detected Not Detected [facility] Nasopharyngeal 08/29/2024 12 :27 PM CDT 08/29/2024 12:46 PM CDT Narrative [facility] - 08/29/2024 1:58 PM CDT Is the Patient experiencing symptoms consistent with COVID?->Yes Surveillance testing for transplant patient?->No ??Interpretive Data The Mobile [employer] FilmArray Respiratory Panel (RP2.1) assay is a [...] assay has FDA clearance for testing of TAPE STRINGER swabs. ??The performance of additional specimen types has been assessed by the performing laboratory. ??The performance characteristics of this assay have been determined by [facility]. Current interpretive data was last revised on 22. Manjit Espinoza MD LAB MICROBIOLOGY - GENERAL ORDERABLES Final Result Performing Organization Address City/[facility] Co de Phone Number [facility] [place] [address] * Thyroid Function Bartholomew (08/29/2024 12:27 PM CDT) TSH 1.00 0.30 - 4.20 mcIUnit/mL Blood 08/29/2024 12:2 7 PM CDT 08/29/2024 12:43 PM CDT Manjit Espinoza MD LAB BLOOD ORDERABLES Final Result Performing Organization Address [facility] Co de Phone Number [facility] Department [place] [address] * Troponin I high-sensitivity series (baseline, 2hr, 4hr, 6hr) (08/29/2024 12:27 PM CDT) Pathologist [facility] Trop I hs 33 <=35 ng/L Comment: Interpretive Data For further [facility] resources including the diagnostic algorithm and an aid in interpretation, copy and paste this link: https://bjhlab.testcatalog.org/show/[email or web address] Current Interpretive Data last revised 2020. Blood 08/29/2024 12:2 7 PM CDT 08/29/2024 12:43 PM CDT Manjit Espinoza MD LAB BLOOD ORDERABLES Final Result Performing Organization Address City/[facility]/ZIP Co de Phone Number [facility] Department [place] [address] * Sepsis Lactate w/ Reflex (08/29/2024 12:27 PM CDT) [facility] Sepsis Lactate 1.9 0.7 - 2.0 mmol/L Blood 08/29/2024 12:2 7 PM CDT 08/29/2024 12:39 PM CDT Manjit Espinoza MD LAB BLOOD ORDERABLES Final Result Performing Organization Address City/[facility]/ZIP Co de Phone Number [facility] Department [place] [address] * (ABNORMAL) Comprehensive metabolic panel (08/29/2024 12:27 PM CDT) [facility] Sodium 128(L) 135 - 145 mmol/L Potassium, pl 4.3 3.3 - 4.9 mmol/L [facility] Chloride 93(L) 97 - 110 mmol/L [facility] CO2 24 22 - 32 mmol/L [facility] Anion gap 11 2 - 15 mmol/L [facility] BUN 24 6 - 25 mg/dL [facility] Creatinine 1.04 0.80 - 1.30 mg/dL [facility] Glucose 116 70 - 199 mg/dL [facility] Comment: Interpretive Data Fasting glucose [...] 2022. Calcium 9.1 8.5 - 10.3 mg/dL [facility] Bilirubin, total 0.5 0.1 - 1.2 mg/dL [facility] Protein, pl 6.8 6.5 - 8.5 g/dL [facility] Albumin 3.4(L) 3.5 - 5.0 g/dL [facility] Alk phos 131(H) 40 - 130 Units/L [facility] ALT 32 7 - 55 Units/L [facility] AST 30 10 - 50 Units/L [facility] Blood 08/29/2024 12:2 7 PM CDT 08/29/2024 12:43 PM CDT Manjit Espinoza MD LAB BLOOD ORDERABLES Final Result [facility] Department [place] [address] * (ABNORMAL) CBC with auto differential (08/29/2024 12:27 PM CDT) [facility] WBC 4.4 3.8 - 9.9 K/cumm Hgb 11.0(L) 13.0 - 17.5 g/dL [facility] Hct 33.6(L) 38.9 - 50.3 % [facility] Plt 100(L) 150 - 400 K/cumm [facility] MPV 9.8 9.1 - 12.3 fL [facility] RBC 4.18(L) 4.30 - 5.80 M/cumm [facility] MCV 80.4(L) 81.3 - 96.4 fL [facility] MCH 26.3(L) 27.1 - 33.3 pg [facility] MCHC 32.7 32.3 - 35.7 g/dL [facility] RDW CV 14.8 11.1 - 14.9 % [facility] RDW SD 42.5 35.7 - 48.1 fL [facility] NRBC abs 0.02(H) 0.00 - 0.01 K/cumm [facility] Blood 08/29/2024 12:2 7 PM CDT 08/29/2024 12:43 PM CDT us Manjit Espinoza MD LAB BLOOD ORDERABLES Final Result [facility] Department [place] [address] documented in this encounter Visit Diagnoses Diagnosis Atrial fibrillation, unspecified type (HCC)- Primary Malignant neoplasm of upper lobe of left lung (HCC) Left against medical advice documented in this encounter Administered Medications Inactive Administered Medications - up to 3 most recent administrations Medication Order MAR Action Action Date Dose Rate Site enoxaparin (LOVENOX) syringe 40 mg 40 mg, subcutaneous, Once, On Evette 08/29/24 at 1552, For 1 dose, Indications: atrial fibrillationIndications: atrial fibrillation Given 08/29/2024 4:10 PM CDT 40 mg Left Lower Abdomen ioversoL (OPTIRAY 350) syringe 75 mL 75 mL, intravenous, Once in imaging, contrast, Starting on Evette 08/29/24 at 1345, For 1 dose Contrast Given 08/29/2024 1:47 PM CDT 69 mL metoprolol (LOPRESSOR) injection 5 mg 5 mg, intravenous, Administer over 1 Minutes, Every 5 min PRN, high blood pressure, Starting on Evette 08/29/24 at 1218, For 3 doses Given 08/29/2024 12:38 PM CDT 5 mg documented in this encounter Active and Recently Administered Medications Times are shown in CDT. Scheduled Medication Order 08/27/2024 08/28/2024 08/29/2024 enoxaparin (LOVENOX) syringe 40 mg (COMPLETED) 40 mg, subcutaneous, Once, On Evette 08/29/24 at 1552, For 1 dose, Indications: atrial fibrillation 1610 (Given - Provid er: Eduardo Carter RN) PRN Medication Order 08/27/2024 08/28/2024 08/29/2024 ioversoL (OPTIRAY 350) syringe 75 mL (COMPLETED) 75 mL, intravenous, Once in imaging, contrast, Starting on Evette 08/29/24 at 1345, For 1 dose 1347 (Contrast Given - Provider: Lydia Ferrari RT) metoprolol (LOPRESSOR) injection 5 mg 5 mg, intravenous, Administer over 1 Minutes, Every 5 min PRN, high blood pressure, Starting on Evette 08/29/24 at 1218, For 3 doses 1238 (Given - Provid er: Eduardo Carter RN) documented in this encounter Orders Medications Ordered That Cuco ht Not Have Been Administered Count Last Ordered Date First Ordered Date enoxaparin (LOVENOX) syringe 40 mg 1 2023 Lab Orders Without Results Count Last Ordered D ate First Ordered Date POCT CREATININE - DEVICE 1 08/29/2024 Consult Count Last Ordered Date First Orde red Date IP CONSULT TO SOCIAL WORK 1 08/29/2024 documented in this encounter Additional Health Concerns Infection Onset Date Last Indicated Resolved Time COVID: Suspected 08/29/2024 08/29/2024 08/29/2024 1:59 PM CDT documented as of this encounter Care Teams Upper Doubler Relationship Specialty Start Date End Date Matthew Mccabe MD [address] [place] [address] PCP - General Family Medicine 05/13/24 Stan Meza MD [address] [facility] DIV IM MEDICAL ONCOLOGY, [address] [place] [address] Medical Oncologist/Sign Writer Hand Medical Oncology 06/28/24 documented as of this encounter
--- OUTSIDE RECORDS SUMMARY | 2024-10-30 07:03 | XMS_ITS | Encounter Summary ---
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 Reviewed instructions for dexamethasone and folic acid. Pt verbalized understanding. * Telephone Encounter - Kaycee Jenkins RMA - 08/16/2024 11:08 AM CDT Patient LVM asking for an explanation of upcoming chemo treatment. He has his paperwork and he is just not understanding about what to do before treatment. Advised RN. *TracyS documented in this encounter Plan of Treatment Not on file documented as of this encounter Visit Diagnoses Not on filedocumented in this encounter Care Teams Gasoline Tractor Operator Relationship Specialty Start Date End Date Matthew Mccabe MD [address] [place] [address] PCP - General Family Medicine 05/13/24 Stan Meza MD [address] [facility] MEDICAL ONCOLOGY, [address] [place] [address] Medical Oncologist/Transition Social Worker Medical Oncology 06/28/24 documented as of this encounter
--- OUTSIDE RECORDS SUMMARY | 2024-10-30 07:03 | XMS_ITS | Encounter Summary ---
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 Gender Identity Not on file Sexual Orientation Not on file documented as of this encounter Plan of Treatment Not on file documented as of this encounter Procedures Procedure Name Priority Date/Time Associated Diagnosis Comments RAD ONC ARIA SESSION SUMMARY 08/14/2024 9:29 AM CDT documented in this encounter Results * RAD ONC ARIA SESSION SUMMARY (08/14/2024 [...] filedocumented in this encounter Care Teams Manager Costing Relationship Specialty Start Date End Date Matthew Mccabe MD [address] [place] [address] PCP - General Family Medicine 05/13/24 Stan Meza MD [address] [facility] DIV IM MEDICAL ONCOLOGY, [address] [place] [address] Medical Oncologist/Ve Teacher Medical Oncology 06/28/24 documented as of this encounter
--- OUTSIDE RECORDS SUMMARY | 2024-10-30 07:04 | XMS_ITS | Encounter Summary ---
Author Organization [facility] Healthcare Address [address] [place] [address] Care Team Providers Care Founder Ceo & President Name Role Phone Matthew Mccabe MD Primary Care Prov ider Stan Meza MD Unavailable [phone] Encounter Details Date Type Department Care Team (Late st Contact Info) Description 07/18/2024 10:30 AM CDT Lab [facility] [address] [facility] 7th [place] [id number] 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) Social History Tobacco Use Types Packs/Day Years Used Date Smoking Tobacco: Every Day Cigarettes Smokeless Tobacco: Never AUDIT-C Answer Date Recorded Frequency of Alcohol Consumption Not on file 06/19/2024 Q2: How many drinks containi ng alcohol do you have on a typical day when you are drinking? 1 or 2 06/19/2024 Q3: How often do you have si x or more drinks on one occasion? Never 06/19/2024 Personal Safety Answer Date Recorded Have you ever been in or are you currently in a harmful physical or emotional relationship or is someone making you feel afraid or unsafe? 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 Gender Identity Not on file Sexual Orientation Not on file documented as of this encounter Plan of Treatment Not on file documented as of this encounter Procedures Procedure Name Priority Date/Time Associated Diagnosis Comments EGFR STAT 07/18/2024 10:50 AM CDT 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) DIFFERENTIAL AUTO Routine 07/18/2024 10: 50 AM CDT 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) CBC WITH AUTO DIFFERENTIAL Routine 07/18/2024 10:50 AM CDT 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) APTT Routine 07/18/2024 10:50 AM CDT 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) PROTIME-INR Routine 07/18/2024 10:50 AM CDT 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) COMPREHENSIVE METABOLIC PANEL STAT 07/18/2024 10:50 AM CDT 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) [id number] CDX Routine 07/18/2024 10:33 AM CDT 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) documented in this encounter Results * eGFR (07/18/2024 10:50 AM CDT) eGFR >90 >=60 mL/min/1. 73 [...] Current interpretive data was last reviewed 2021. Testing performed by: [facility], [address] [place] [phone] Blood 07/18/2024 10:5 0 AM CDT 07/18/2024 10:53 AM CDT us Stan Meza MD LAB BLOOD ORDERABLES Yolette banda Result [facility] Department [place] [address] * (ABNORMAL) Differential, auto (07/18/2024 10:50 AM CDT) Neutrophil abs 4.5 1.5 - 6.5 K/cumm Comment:Testing performed by : [facility], [address] [place] [phone] Lymphocyte abs 2.2 0.8 - 3.3 K/cumm [facility] Comment:Testing performed by : [facility], [address] [place] [phone] Monocyte abs 1.0(H) 0.2 - 0.8 K/cumm [facility] Comment:Testing performed by : [facility], [address] [place] [phone] Eosinophil abs 0.5 0.0 - 0.5 K/cumm [facility] Comment:Testing performed by : [facility], [address] [place] [phone] Basophil abs 0.1 0.0 - 0.1 K/cumm [facility] Comment:Testing performed by : [facility], [address] [place] [phone] Neutrophil pct 54.2 % [facility] Comment: Interpretive Data Percent cell count reference ranges are not reported, since discordance with absolute values may lead to misinterpretation of CBC data. Current Interpretive Data was last revised on 2018. Testing performed by: [facility], [address] [place] [phone] Lymphocyte pct 27.1 % [facility] Comment: Interpretive Data Percent cell count reference ranges are not reported, since discordance with absolute values may lead to misinterpretation of CBC data. Current Interpretive Data was last revised on 2018. Testing performed by: [facility], [address] [place] [phone] Monocyte pct 11.9 % [facility] Comment:Testing performed by : [facility], [address] [place] [phone] Eosinophil pct 5.6 % [facility] Comment:Testing performed by : [facility], [address] [place] [phone] Basophil pct 1.2 % [facility] Comment:Testing performed by : [facility], [address] [place] [phone] Blood 07/18/2024 10:5 0 AM CDT 07/18/2024 10:53 AM CDT us Stan Meza MD LAB BLOOD ORDERABLES Yolette l Result [facility] [place] [address] * (ABNORMAL) CBC with auto differential (07/18/2024 10:50 AM CDT) WBC 8.2 3.8 - 9.8 K/cumm Comment:Testing performed by : [facility], [address] [place] [phone] Hgb 12.9(L) 13.8 - 17.2 g/dL [facility] Comment:Testing performed by : [address] [phone] Hct 39.3(L) 40.7 - 50.3 % [facility] Comment:Testing performed by : [facility], [address] [place] [phone] Plt 201 140 - 440 K/cumm [facility] Comment:Testing performed by : [facility], [address] [place] [phone] MPV 7.3 6.8 - 10.4 fL [facility] Comment:Testing performed by : [facility], [address] [place], [place] [phone] RBC 4.56 4.50 - 5.70 M/cumm [facility] Comment:Testing performed by : [place] [phone] MCV 86.2 80.0 - 97.6 fL [facility] Comment:Testing performed by : [facility], [address] [place] [phone] MCH 28.4 26.7 - 33.7 pg [facility] Comment:Testing performed by : [facility], [address] [place] [phone] MCHC 32.9 32.7 - 35.5 g/dL [facility] Comment:Testing performed by : [address] [phone] RDW CV 13.2 11.8 - 14.6 % [facility] Comment:Testing performed by : [address] [phone] NRBC abs 0.00 0.00 - 0.01 K/cumm [facility] Comment:Testing performed by : [facility], [address] [place] [phone] Blood 07/18/2024 10:5 0 AM CDT 07/18/2024 10:53 AM CDT us Stan Meza MD LAB BLOOD ORDERABLES Yolette banda Result [facility] [place] [address] * (ABNORMAL) Comprehensive metabolic panel (07/18/2024 10:50 AM CDT) Sodium 131(L) 135 - 145 mmol/L Comment:Testing performed by : [facility], [address] [place] [phone] Potassium, pl 3.8 3.3 - 4.9 mmol/L [facility] Comment:Testing performed by : [facility], [address] [place] [phone] Chloride 96(L) 97 - 110 mmol/L [facility] Comment:Testing performed by : [facility], [address] [place] [phone] CO2 25 22 - 32 mmol/L [facility] Comment:Testing performed by : [facility], [address] [place] [phone] Anion gap 10 2 - 15 mmol/L [facility] Comment:Testing performed by : [facility], [address] [place] [phone] BUN 4(L) 6 - 25 mg/dL [facility] Comment:Testing performed by : [facility], [address] [place] [phone] Creatinine 0.70(L) 0.80 - 1.30 mg/dL [facility] Comment:Testing performed by : [facility], [address] [place] [phone] Glucose 102 70 - 199 mg/dL [facility] Comment: Interpretive Data Fasting glucose [...] Current interpretive data was last revised 2022. Testing performed by: [facility], [address] [place] [phone] Calcium 9.6 8.5 - 10.3 mg/dL [facility] Comment:Testing performed by : [facility], [address] [place] [phone] Bilirubin, total 0.6 0.1 - 1.2 mg/dL [facility] Comment:Testing performed by : [facility], [address] [place] [phone] Protein, pl 7.7 6.5 - 8.5 g/dL [facility] Comment:Testing performed by : [facility], [address] [place] [phone] Albumin 4.1 3.5 - 5.0 g/dL [facility] Comment:Testing performed by : [facility], [address] [place] [phone] Alk phos 164(H) 40 - 130 Units/L [facility] Comment:Testing performed by : [facility], [address] [place] [phone] ALT 9 7 - 55 Units/L [facility] Comment:Testing performed by : [facility], [address] [place] [phone] AST 13 10 - 50 Units/L [facility] Comment:Testing performed by : [facility], [address] [place] [phone] Blood 07/18/2024 10:5 0 AM CDT 07/18/2024 10:53 AM CDT us Stan Meza MD LAB BLOOD ORDERABLES Yolette banda Result [facility] [place] [address] * aPTT (07/18/2024 10:50 AM CDT) aPTT 30 28 - 38 sec Comment: Interpretive Data Heparin therapeutic range: 66.0 - 100.0 seconds. Range based on correlation with therapeutic heparin activity range of 0.3 - 0.7 Units/mL. Current interpretive data was last revised on 2023. Blood 07/18/2024 10:5 0 AM CDT 07/18/2024 11:22 AM CDT Stan Meza MD LAB BLOOD ORDERABLES Yolette l Result Performing Organization Address [facility] Co de Phone Number [facility] [place] [address] * (ABNORMAL) Protime-INR (07/18/2024 10:50 AM CDT) Pathologist [facility] PT 13.7(H) 9.7 - 13.0 sec INR 1.26(H) 0.90 - 1.20 [facility] Comment: Interpretive data Oral anticoagulant therapeutic ranges: Venous thromboembolism prophylaxis or treatment: 2.0-3.0 CARDIOLOGY Standard range: 2.0-3.0 High-intensity range: 2.5-3.5 Refer to indication-specific guidelines for appropriate target ranges for prosthetic heart valve replacement. Current interpretive data was last revised on 2019. Blood 07/18/2024 10:5 0 AM CDT 07/18/2024 11:22 AM CDT Stan Meza MD LAB BLOOD ORDERABLES Yolette l Result Performing Organization Address [facility] de Phone Number [facility] [place] [address] * Guardant 360 CDx (07/18/2024 10:33 AM CDT) [facility] MSI-HIGH NOT DETECTED 07/27/2024 12:48 PM CDT [facility] Blood specimen (specimen) (Blood, Venous) 07/18/2024 10:33 AM CDT 07/19/2024 12:39 PM CDT Narrative This result has genomic variants that were not included in this document. Stan Meza MD LAB GENETIC TESTING Final Result Performing Organization Address City/[facility] Co de Phone Number [facility] [address] [place] [address] documented in this encounter Visit Diagnoses Diagnosis 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) documented in this encounter Care Teams Founder Ceo & President Relationship Specialty Start Date End Date Matthew Mccabe MD [address] [place] [address] PCP - General Family Medicine 05/13/24 Stan Meza MD [address] [facility] MEDICAL ONCOLOGY, [address] [place] [address] Medical Oncologist/Configuration Technician Medical Oncology 06/28/24 documented as of this encounter
--- OUTSIDE RECORDS SUMMARY | 2024-10-30 07:04 | XMS_ITS | Encounter Summary ---
Author Organization [facility] Address [address] [place] [address] Phone Care Team Providers Care International Marketing Intern Name Role Phone Matthew Mccabe MD Primary Care Prov ider Stan Meza MD Unavailable [phone] Encounter Details Date Type Department Care Team (Late st Contact Info) Description 07/19/2024 Documentation [facility] Oncology [address] [facility] 7th [place] [address] [place] [address] Sarah Brunner LCSW Social History Tobacco Use [...] on file 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 SW provided patient with SW fax number and told him to have his insurance company send SW the paperwork and SW will complete it correctly and fax it in for him. He agreed and thanked RAVINDER. RAVINDER will remain available to assist as needed. documented in this encounter Plan of Treatment Not on file documented as of this encounter Visit Diagnoses Not on filedocumented in this encounter Care Teams International Marketing Intern Relationship Specialty Start Date End Date Matthew Mccabe MD [address] [place] [address] PCP - General Family Medicine 05/13/24 tSan Meza MD [address] [facility], [address] [place] [address] Medical Oncologist/Museum Registrar Medical Oncology 06/28/24 documented as of this encounter
--- OUTSIDE RECORDS SUMMARY | 2024-10-30 07:04 | XMS_ITS | Encounter Summary ---
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 SW acknowledged and confirmed need with patient. SW contacted [facility] to arranged transportation for this week. Patient is aware to picking supervisor his ride schedule at RT room and will contact MT number below if return ride is needed sooner than what is prescheduled. Call MTM after appointments for return rides. [phone] Sunday 08/12: network support engineer via MTM for 3:20 pm appt. Return is at 4:45 pm. Monday 08/13: network support engineer via MTM for 8:40 am appt. Return is at 9:15 am. Tuesday 08/14: network support engineer via MTM for 9:10 am appt. Return is at 9:45 am. 08/15: network support engineer via MTM for: [address] [facility] 5th floor -7 am lab -[address] Meza -9 am infusion [address] [facility] Lower Level 11:40am radiation appt. Return is at 12:15 pm. Thursday 08/16: network support engineer via MTM for 11:40am appt. Return is at 12:15pm. GOAL/PLAN: SW will remain available as needed. Anne Marie Harmon LCSW [phone] Radiation Oncology, METAL TEMPERER Oncology (13C), Radiology (CT/MRI/PET) [facility] documented in this encounter Plan of Treatment Not on file documented as of this encounter Visit Diagnoses Not on filedocumented in this encounter Care Teams Corporate Legal Manager Relationship Specialty Start Date End Date Matthew Mccabe MD [address] [place] [address] PCP - General Family Medicine 05/13/24 Stan Meza MD [address] [facility], [address] [place] [address] Medical Oncologist/Patent Solicitor Medical Oncology 06/28/24 documented as of this encounter
--- OUTSIDE RECORDS SUMMARY | 2024-10-30 07:04 | XMS_ITS | Encounter Summary ---
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 Attempted to call the patient back and reached his voicemail box. Message left encouraging patient to call Carrie WISDOM back when receives message. documented in this encounter Plan of Treatment Not on file documented as of this encounter Visit Diagnoses Not on filedocumented in this encounter Care Teams Kersey Department Supervisor Relationship Specialty Start Date End Date Matthew Mccabe MD [address] [place] [address] PCP - General Family Medicine 05/13/24 Stan Meza MD [address] [facility] IM MEDICAL ONCOLOGY, [address] [place] [address] Medical Oncologist/Associate Designer Medical Oncology 06/28/24 documented as of this encounter
--- OUTSIDE RECORDS SUMMARY | 2024-10-30 07:04 | XMS_ITS | Encounter Summary ---
Author Organization [facility] Healthcare Address [address] [place] [address] Care Team Providers Care Horse Riding Coach Or Instructor Name Role Phone Matthew Mccabe MD Primary Care Prov ider Stan Meza MD Unavailable [phone] Encounter Details Date Type Department Care Team (Late st Contact Info) Description 08/12/2024 3:06 PM CDT - 08/12/2024 11:59 PM CDT Hospital Encounter [facility] Radiation Oncology [address] 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
--- OUTSIDE RECORDS SUMMARY | 2024-10-30 07:04 | XMS_ITS | Encounter Summary ---
Author Organization [facility] Address [address] [place] [address] Phone Care Team Providers Care Positive Printer Operator Name Role Phone Matthew Mccabe MD Primary Care Prov ider Reason for Referral * Procedure (Routine) - Closed Specialty Diagnoses / Procedures Referred By Contac t Referred To Contact Diagnoses Localized enlarged lymph nodes Procedures Pulmonary Function Test -[facility] PFT [facility]- [facility]-8D; Spirometry, Spirometry with Bronchodilator, Lung Volumes, DLCO, Oxygen Assessment Titration, Pulse Ox; Pleth with Airway Resistance; Spirometry Manjit Corrales Chi, MD [address] [place] [address] Phone: tel: fax: Referral ID Status Reason Start Date Expiration Date Visits Re quested Visits Authorized [id number] Closed 05/13/2024 06/12/2025 1 1 Reason for Visit * Procedure (Routine) - Closed Specialty Diagnoses / Procedures Referred By Contac t Referred To Contact Diagnoses Localized enlarged lymph nodes Procedures Pulmonary Function Test -[facility]FT [facility]- [facility]-8D; Spirometry, Spirometry with Bronchodilator, Lung Volumes, DLCO, Oxygen Assessment Titration, Pulse Ox; Pleth with Airway Resistance; Spirometry Manjit Corrales Chi, MD [address] [place] [address] Phone: tel: fax: Referral ID Status Reason Start Date Expiration Date Visits Re quested Visits Authorized [id number] Closed 05/13/2024 06/12/2025 1 1 Encounter Details Date Type Department Care Team (Latest Contact Info) Description 05/28/2024 7:49 AM CDT - 05/28/2024 11:59 PM CDT Hospital Encounter [facility] [address] [facility] [address] [place] [address] Localized enlarged lymph nodes Discharge Disposition: Discharge to home or self care Social History Tobacco Use Types Packs/Day Years Used Date Smoking Tobacco: Every Day Cigarettes Smokeless Tobacco: Never Personal Safety Answer Date Recorded Getting School Help Needed Not on file 05/08 Sex and Gender Information Value Date Recorded Sex Assigned at Not on file 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 Gender Identity Not on file [...] (50 mg total) by mouth daily 05/27/2024 nicotine (NICODERM CQ) [address] 1 [...] 2 (two) times a day with meals fluticasone propionate (FLONASE) 50 mcg/actuation nasal spray Administer into each nostril daily 12/14/2022 4 hydroCHLOROthiaz michelle (HYDRODIURIL) 25 mg tablet Take 1 tablet (25 mg total) by mouth daily 01/29/2024 4 ipratropium-albu teroL (DUO-NEB) 0.5-2.5 mg/3 mL nebulizer solution 05/26/2024 4 traMADoL (ULTRAM) 50 mg tablet Take 1 tablet (50 mg total) by mouth 2 (two) times a day 05/06/2024 4 documented as of this encounter Discharge Disposition Disposition Code Departure Means Destination Discharge to home or self care documented in this encounter Plan of Treatment Not on file documented as of this encounter Procedures Procedure Name Priority Date/Time Associated Diagnosis Comments PULMONARY FUNCTION TEST (PFT) Routine 05/28/2024 8:38 AM CDT Localized enlarged lymph nodes documented in this encounter Results * Pulmonary Function Test - (05/28/2024 8:38 AM CDT) FVC PRE 2.84 L [facility] FVC %PRE PRED 80 % [facility] FVC POST 2.81 L [facility] FVC %POST PRED 80 % [facility] FEV1 PRE 2.24 L [facility] FEV1 %PRE PRED 81 % [facility] FEV1 POST 2.21 L [facility] FEV1 %POST PRED 80 % [facility] FEV1/FVC PRE 78.8 % [facility] FEV1/FVC POST 78.7 % [facility] FRC PL PRE 3.[address] [facility] FRC [address] %PRE PRED 118 % [facility] RV PRE 3.04 L [facility] RV %PRE PRED 140 % [facility] TLC PRE 6.24 L [facility] TLC %PRE PRED 96 % [facility] DLCO PRE 19.8 ml/min/mmH g [facility] DLCO %PRE PRED 78 % [facility] Anatomical Region Laterality Modality PFT 05/28/2024 8:00 AM CDT Impressions 05/29/2024 11:46 PM CDT There is no ventilatory defect. There is no impairment of alveolar gas exchange by DLCO. The attending pulmonary physician certifies a physician presence in the [facility] Suite during the administration of aerosolized bronchodilator. The attending pulmonary physician certifies that he/she has reviewed and interpreted the graphic and numerical data of this pulmonary function study and agrees with the written final report. The lower limit of normal for PO2 and %HbO2 is age dependent. However, the [facility] Function [facility] defines hypoxemia as a PO2 <55 or a %HbO2 <89. Narrative 05/29/2024 11:46 PM CDT Table formatting from the original result was not included. [facility] Division of Pulmonary & Critical Care Medicine [address] [place] [address]; [place] [address]; [place], [place] ??[address]; [phone] Pulmonary Function Laboratory Pulmonary Stress Test Simple/Oxygen Assessment Patient: Josafat Calvo Date: 05/28/2024 : 1960 Ht: 67.5 IN Wt: 223 LBS Time (min) Distance (ft)/ Augustin O2 L/M SpO2 HR Jacqueline* BP FEV1 % Pred Rest: ??RA 96 75 3 155/100 2.24 81 % ? Walk/Bike: 1 ??RA 97 89 3 ? 2 ??RA 97 93 4 ? 3 ??RA 98 98 4 ? 4 ??RA 99 101 4 ? 5 ??RA 98 101 5 ? 6 min 0 sec ??RA 98 103 6 ? Recovery: 1 ??RA 99 80 4 144/85 2.41 87% 3 ??RA 99 77 3 ?*Jacqueline rate of perceived exertion (1-10 dyspnea scale) ??Bassem, CHEST 2003; 123:1408 Walk Test Summary: Six Minute Walk Distance: 1235 ft Six-minute Walk Work [distance (m) x body wt (kg)]: 63503 kg.m (normal >60,000kg.m) Oxygen required to maintain SpO2 greater than 90% during six minutes of walkin L/M Comments: O2A- PATIENT TOOK BP MEDS TODAY. 0 STOPS Interpretation: Breathing room air, SpO2 is normal at rest and during exercise sufficient to increase pulse from 75 to 103 b/min, SpO2 is stable. On this basis, SpO2 is adequate at rest breathing room air and while walking breathing room air. This level of exercise is associated with no significant change of FEV1. ?? Clyde Gomez M.D. By signing this report, the attending pulmonary physician certifies that he/she has personally reviewed and interpreted the graphic and numerical data associated with this pulmonary function study and has reviewed and /or edited a preliminary draft report and agrees with the written final report. PFT performed at:->[facility] Adult PFT Lab- [facility]-8D Procedure:->Spirometry Procedure:->Spirometry with Bronchodilator Procedure:->Lung Volumes Procedure:->DLCO Procedure:->Oxygen Assessment Titration Procedure:->Pulse Ox Lung Volumes via:->Pleth with Airway Resistance DLCO:->Spirometry Pulmonary Function Test Interpretation SPIROMETRY: The FEVI and FVC are normal. ??The FEVI to FVC ratio is normal. There is no significant improvement after inhaling a single nebulized dose of albuterol. FLOW VOLUME LOOPS: The inspiratory loop is normal. LUNG VOLUMES: TLC measured by plethysmography is normal. The relative increase in RV suggests air trapping. DIFFUSING CAPACITY: The diffusing capacity is normal. Note that the value for diffusing capacity is not corrected for hemoglobin and that anemia may decrease the reported value. PULSE OXIMETRY: See Oxygen Assessment/Cardiopulmonary Exercise Study-Simple us Manjit Corrales MD PFT ORDERABLES Final Resu lt documented in this encounter Visit Diagnoses Diagnosis Localized enlarged lymph nodes documented in this encounter Care Teams Positive Printer Operator Relationship Specialty Start Date End Date Matthew Mccabe MD [address] [place] [address] PCP - General Family Medicine 05/13/24 documented as of this encounter
--- OUTSIDE RECORDS SUMMARY | 2024-10-30 07:04 | XMS_ITS | Encounter Summary ---
Author Organization [facility] Healthcare Address [address] [place] [address] Care Team Providers Care Cardiology Associate Name Role Phone Matthew Mccabe MD Primary Care Prov ider Encounter Details Date Type Department Care Team (Latest Contact Info) Description 05/28/2024 8:41 AM CDT - 05/28/2024 11:59 PM CDT Hospital Encounter [facility] [address] [place] [address] Localized enlarged lymph nodes Discharge Disposition: Discharge to home or self care Social History Tobacco Use Types Packs/Day Years Used Date Smoking Tobacco: Every Day Cigarettes Smokeless Tobacco: Never Personal Safety Answer Date Recorded Getting School Help Needed Not on file 05/08 Sex and Gender Information Value Date Recorded Sex Assigned at Not on file 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 Ill-defined enlargement of left hilum which may be due to a central mass or lymphadenopathy. ??Recommend correlation with chest CT. Right lung clear. ??No pleural effusion or pneumothorax. Electronically signed by: El Plasencia M.D. Narrative 05/28/2024 9:51 AM CDT EXAMINATION: 2 view chest radiograph COMPARISON: None available. Procedure Note El Plasencia MD - 05/28/2024 EXAMINATION: 2 view chest radiograph COMPARISON: None available. IMPRESSION: Normal heart size. Ill-defined enlargement of left hilum which may be due to a central mass or lymphadenopathy. Recommend correlation with chest CT. Right lung clear. No pleural effusion or pneumothorax. Electronically signed by: El Plasencia M.D. us Manjit Corrales MD IMG XR PROCEDURES Final Re sult documented in this encounter Visit Diagnoses Diagnosis Localized enlarged lymph nodes documented in this encounter Care Teams Cardiology Associate Relationship Specialty Start Date End Date Matthew Mccabe MD [address] [place] [address] PCP - General Family Medicine 05/13/24 documented as of this encounter
--- OUTSIDE RECORDS SUMMARY | 2024-10-30 07:04 | XMS_ITS | Encounter Summary ---
Author Organization [facility] Healthcare Address [address] [place] [address] Care Team Providers Care Material Worker Name Role Phone Matthew Mccabe MD Primary Care Prov ider Stan Meza MD Unavailable [phone] Reason for Referral * MRI/CAT/PET Scan (Routine) - Closed Specialty Diagnoses / Procedures Referred By Contac t Referred To Contact Radiology Diagnoses 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) Procedures PET/CT FDG Skull to Thigh Stan Meza MD [address] [place] [address] Phone: tel: fax: [address] [address] Referral ID Status Reason Start Date Expiration Date Visits Re quested Visits Authorized [id number] Closed 07/18/2024 08/17/2025 2 2 Reason for Visit * MRI/CAT/PET Scan (Routine) - Closed Specialty Diagnoses / Procedures Referred By Contac t Referred To Contact Radiology Diagnoses 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) Procedures PET/CT FDG Skull to Thigh Stan Meaz MD [address] [place] [address] Phone: tel: fax: [facility] [address] [facility] [place] [address] Referral ID Status Reason Start Date Expiration Date Visits Re quested Visits Authorized [id number] Closed 07/18/2024 08/17/2025 2 2 Encounter Details Date Type Department Care Team (Latest Contact Info) Description 07/31/2024 1:24 PM CDT - 07/31/2024 11:59 PM CDT Hospital Encounter [facility] - PET [address] [facility] Floor [address] [place] [address] Primary cancer of left lower lobe of [...] on file 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 Gender Identity Not on file Sexual [...] 2 (two) times a day with meals ipratropium-albu teroL (DUO-NEB) 0.5-2.5 mg/3 mL nebulizer solution 05/26/2024 traMADoL (ULTRAM) 50 mg tablet Take 1 tablet (50 mg total) by mouth 2 (two) times a day 05/06/2024 4 documented as of this encounter Discharge Disposition Disposition Code Departure Means Destination Discharge to home or self care documented in this encounter Plan of Treatment Not on file documented as of this encounter Procedures Procedure Name Priority Date/Time Associated Diagnosis Comments PET/CT FDG SKULL TO THIGH Schedule Routine, Read Routine (OP Routine) 07/31/2024 4:05 PM CDT 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) documented in this encounter Results * PET/CT FDG Skull to Thigh (07/31/2024 [...] FDG-PET/CT IMAGING DATE OF STUDY: ??07/31/2024 SCANNER: [facility] Aden (SQ1). ??This is a high-resolution scanner, which [...] obtained. ??The study was interpreted on the [employer]acht App workstation. ??The mean liver SUV (reported for housing quality standard inspector purposes) is 2.8. ?? The total scanned [...] FDG-PET/CT IMAGING DATE OF STUDY: 07/31/2024 SCANNER: [facility] Clean Plates (SQ1). This is a high-resolution scanner, which [...] obtained. The study was interpreted on the [employer]acht App workstation. The mean liver SUV (reported for housing quality standard inspector purposes) is 2.8. The total scanned area [...] 5 PM on 07-31-2024. Dictated by: Sree Manna, M.D. The radiology attending physician has personally reviewed this study, and had reviewed and/or edited this written report and agrees with it. Electronically signed by: Mitchell Colmenares M.D. us Stan Meza MD IMG PET PROCEDURES Final Result documented in this encounter Visit Diagnoses Diagnosis 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) documented in this encounter Administered Medications Inactive Administered Medications - up to 3 most recent administrations Medication Order MAR Action Action Date Dose Rate Site fludeoxyglucose F-18 (FDG) injection 9 millicurie 9 millicurie, intravenous, Once in imaging, radiopharmaceutical, Starting on Mon07/31/24 at 1435, For 1 dose Given 07/31/2024 2:41 PM CDT 9.351 millicuries documented in this encounter Orders Medications Ordered That Cuco ht Not Have Been Administered Count Last Ordered Date First Ordered Date fludeoxyglucose F-18 (FDG) i njection 9 millicurie 1 07/31/2024 documented in this encounter Care Teams Material Worker Relationship Specialty Start Date End Date Matthew Mccabe MD [address] [place] [address] PCP - General Family Medicine 05/13/24 Stan Meza MD [address] [facility] MEDICAL ONCOLOGY, [address] [place] [address] Medical Oncologist/Programmer Numerical Control Medical Oncology 06/28/24 documented as of this encounter
--- OUTSIDE RECORDS SUMMARY | 2024-10-30 07:04 | XMS_ITS | Encounter Summary ---
Author Organization [facility] Healthcare Address [address] [place] [address] Care Team Providers Care Academic Hospitalist Name Role Phone Matthew Mccabe MD Primary Care Prov ider Stan Meza MD Unavailable [phone] Reason for Referral * MRI/CAT/PET Scan (Routine) - Closed Specialty Diagnoses / Procedures [facility] To Contact Radiology Diagnoses 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) Procedures MRI Brain W WO Contrast Stan Meza MD [address] [place] [address] Phone: tel: fax: [address] [phone] Referral ID Status Reason Start Date Expiration Date Visits Re quested Visits Authorized [id number] Closed 07/18/2024 08/17/2025 1 1 Reason for Visit * MRI/CAT/PET Scan (Routine) - Closed Specialty Diagnoses / Procedures Referred By [facility] t Referred To Contact Radiology Diagnoses 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) Procedures MRI Brain W WO Contrast Stan Meza MD [address] [place] [address] Phone: tel: fax: [facility] [address] 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 Gender Identity Not on file Sexual [...] Name Priority Date/Time Associated Diagnosis Comments MRI BRAIN W WO CONTRAST Schedule Routine, Read Routine (OP Routine) 07/31/2024 2:11 PM CDT 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) documented in this encounter Results * MRI Brain W WO Contrast (07/31/2024 [...] by: Ian Butler MD Stan Meza MD IM MRI PROCEDURES Final Result documented in this encounter Visit Diagnoses Diagnosis 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) documented in this encounter Administered Medications Inactive Administered Medications - up to 3 most recent administrations Medication Order MAR Action Action Date Dose Rate Site gadoterate meglumine injection 20 mL 20 mL, intravenous, Once in imaging, contrast, Starting on Mon07/31/24 at 1347, For 1 dose Contrast Given 07/31/2024 1:51 PM CDT 20 mL documented in this encounter Orders Medications Ordered That Cuco ht Not Have Been Administered Count Last Ordered Date First Ordered Date gadoterate meglumine injection 20 mL 1 11/2023 documented in this encounter Care Teams Academic Hospitalist Relationship Specialty Start Date End Date Matthew Mccabe MD [address] [place] [address] PCP - General Family Medicine 05/13/24 Stan Meza MD [address] [facility] IM MEDICAL ONCOLOGY, [address] [place] [address] Medical Oncologist/Ranger Aide Medical Oncology 06/28/24 documented as of this encounter
--- OUTSIDE RECORDS SUMMARY | 2024-10-30 07:04 | XMS_ITS | Encounter Summary ---
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 ??There will be no report generated by a [facility] Radiologist. Narrative [facility] - 07/19/2024 12:43 AM CDT EXAMINATION: ??Images For Reference Purposes Only us Stan Meza MD IMG CT PROCEDURES Final R esult [facility] documented in this encounter Visit Diagnoses Not on filedocumented in this encounter Care Teams Shaker Screen Operator Relationship Specialty Start Date End Date Matthew Mccabe MD [address] [place] [address] PCP - General Family Medicine 05/13/24 Stan Meza MD [address] [facility] MEDICAL ONCOLOGY, [address] [place] [address] Medical Oncologist/Digital Advisor Medical Oncology 06/28/24 documented as of this encounter
--- OUTSIDE RECORDS SUMMARY | 2024-10-30 07:04 | XMS_ITS | Encounter Summary ---
Author Organization [facility] Healthcare Address [address] [place] [address] Care Team Providers Care Dietary Cook Name Role Phone Matthew Mccabe MD Primary Care Prov ider Encounter Details Date Type Department Care Team (Late st Contact Info) Description 06/19/2024 Orders Only 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
--- OUTSIDE RECORDS SUMMARY | 2024-10-30 07:04 | XMS_ITS | Encounter Summary ---
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 Patient states that he is aware of how to contact [facility] when rides are needed and will communicate with RAVINDER Awad should any assistance be needed. [facility] and encouraged patient to communicate any issues he encounters during RT. GOAL/PLAN: SW will remain available as needed. Anne Marie Harmon LCSW [phone] Radiation Oncology, PRESERVATIVE FILLER MACHINE OPERATOR Oncology (13C), Radiology (CT/MRI/PET) [facility] documented in this encounter Plan of Treatment Not on file documented as of this encounter Visit Diagnoses Not on filedocumented in this encounter Care Teams Senior Data Warehouse Developer Relationship Specialty Start Date End Date Matthew Mccabe MD [address] [place] [address] PCP - General Family Medicine 05/13/24 Stan Meza MD [address] [facility] IM MEDICAL ONCOLOGY, [address] [place] [address] Medical Oncologist/Worm Grower Medical Oncology 06/28/24 documented as of this encounter
--- OUTSIDE RECORDS SUMMARY | 2024-10-30 07:04 | XMS_ITS | Encounter Summary ---
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 Name Role Phone Matthew Mccabe MD Primary Care Prov ider Reason for Referral * Pulmonology (Routine) - Closed Specialty Diagnoses / Procedures Referred By Contac t Referred To Contact Pulmonary Disease Diagnoses Hilar mass Procedures Bronchoscopy -[facility] Interventional Pulm; Bronchoscopy, EBUS LINEAR Manjit Corrales Chi, MD [address] [facility] [place] [address] Phone: tel: fax: Referral ID Status Reason Start Date Expiration Date Visits Re quested Visits Authorized [id number] Closed 05/28/2024 06/27/2025 1 1 Reason for Visit * Reason Comments Bronchoscopy * Pulmonology (Routine) - Closed Specialty Diagnoses / Procedures Referred By Contmaryann t Referred To Contact Pulmonary Disease Diagnoses Hilar mass Procedures Bronchoscopy -[facility] Interventional Pulm; Bronchoscopy, EBUS LINEAR Manjit Corrales Chi, MD [address] [place] [address] Phone: tel: fax: Referral ID Status Reason Start Date Expiration Date Visits Re quested Visits Authorized [id number] Closed 05/28/2024 06/27/2025 1 1 Encounter Details Date Type Department Care Team (Latest Contact Info) Description 06/19/2024 11:20 AM CDT - 06/19/2024 11:59 PM CDT Hospital Encounter [facility] Interventional Pulmonology [address] [place] [address] Cyndi mass Discharge Disposition: Discharge to home or self care Social History Tobacco Use Types Packs/Day Years Used Date Smoking Tobacco: Every Day Cigarettes Smokeless Tobacco: Never Tobacco Cessation:Ready to Q uit: No; Counseling Given: Yes AUDIT-C Answer Date Recorded Frequency of Alcohol [...] on file Legal Sex Male 6:04 PM [employer] Gender Identity Not on file Sexual Orientation Not on file documented as of this encounter Last Filed Vital Signs Vital Sign Reading Time Taken Comments Blood Pressure 137/108 06/19/2024 3:00 PM CDT Pulse 85 06/19/2024 3:00 PM CDT Temperature 36.2 ??C (97.1 ??F) 06/19/2024 2:39 PM CD T Respiratory Rate 20 06/19/2024 3:00 PM CDT Oxygen Saturation 96% 06/19/2024 3:00 PM CDT Inhaled Oxygen Concentration - - Weight 102.1 kg (225 lb) 06/19/2024 12:18 PM CDT Height 175.3 cm (5' 9 ) 06/19/2024 12:18 PM CDT Body Mass Index 33.23 06/19/2024 12:18 PM CDT documented in this encounter Discharge Instructions * Patient Instructions* Sally Cui RN - 06/19/2024 12:30 PM CDT Interventional Pulmonology Post Bronchoscopy Instructions - Patient Family Education THE PROCEDURE YOU HAD TODAY WAS A BRONCHOSCOPY. The sedation medicine you received today can stay in your body for up to 24 hours You may have: Short-term memory loss, such as loss of memory from the procedure or things that happen shortly afterwards. Feeling drowsy or sleepy Feeling dizzy or lightheaded Nausea (sick to your stomach) Headache For the next 24 hours after your procedure Do NOT drive a car or operate heavy machinery. You will need someone to drive you home today Do NOT drink alcohol Do NOT smoke Do NOT make important decisions or sign any legal papers Do NOT stay by yourself. Stay with a responsible adult tonight Do NOT bathe or shower until tomorrow Be careful when standing, walking, changing positions, or using steps Slowly ease into regular activities. You may resume work or exercise as directed by your doctor. When you start eating, try liquids first and slowly progress to a light meal You may resume your current medications as diected by your doctor The following symptoms are common 24 to 48 hours after a bronchoscopy You may cough up small amounts of dark red, old blood Your throat may be sore for 2 or more days. Try soups, Jell-O, and ice-cream until it feels better You may develop a fever. Use Tylenol (acetaminophen) as directed on the bottle or as directed by your primary care provider for fever. Please call the [facility] Interventional Pulmonology Department at , Monday through Monday 8:30am to 4:30pm Or, go to the nearest emergemcy department if you have. Fever that lasts more than 2 days or is over 100 degrees Fahrenheit Any shortness of breath Chest pain or tightness in the chest Coughing up large amounts of blood meaning more than 1-2 teaspoons If you had fluid or tissue samples sent today for testing, you should receive a call from our medical team about your results. Please call if you have not been contacted within 5 business days. If this is an emergency, call [phone]. If you are unable to speak to the staff during normal business hours, please call and ask for the Project Manager Process Development composition teacher. I have received and understand these instructions and my questions were answered. / / ____: Date Time Signature of Patient OR Person Authorized to Sign/Relationship Printed Name / / ____: Date Time Nurse Signature Printed Name documented in this encounter Medications at Time [...] or self care documented in this encounter Procedure Notes * Manjit Corrales Chi, MD - 06/19/2024 1:18 PM CDTAssociated Order(s): BRONCHOSCOPY [facility] Interventional Pulmonary Patient Name: Josafat Gray Procedure Date: 06/19/2024 1:18 PM Date of : 1960 Admit Type: Outpatient Age: 63 Gender: Male Note Status: Finalized Procedure: Bronchoscopy EBUS-TBNA and core biopsy Indications: Left hilar mass Providers: Manjit Corrales M.D. Referring MD: Nu Martinez PA-C Medicines: Lidocaine 1% applied to cords 10 mL, Lidocaine 1% subglottic space 20 mL, Fentanyl 300 mcg IV, Remimazolam 27.5 mg IV Complications: No immediate complications Procedure: Pre-Anesthesia Assessment: - The risks and benefits of the procedure and the sedation options and risks were discussed with the patient. All questions were answered and informed consent was obtained. After obtaining informed consent, the Bronchoscope was introduced through the mouth, via laryngeal mask airway and advanced to the tracheobronchial tree of both lungs. the Bronchoscope was introduced through the and advanced to the. The procedure was accomplished without difficulty. The patient tolerated the procedure well. Estimated Blood Loss: Estimated blood loss was minimal. Findings: 1. Airway inspection The laryngeal mask airway is in good position. The vocal cords appear normal. The subglottic space is normal. The trachea is of normal caliber. The richard is sharp. The tracheobronchial tree was examined to at least the first subsegmental level. Bronchial mucosa and anatomy of the right bronchial tree is grossly normal; there are no endobronchial lesions, and no secretions. Left bronchial tree: some erythema was noted within the left mainstem bronchus along the posterior wall extending into the left upper lobe bronchus which was narrowed due to extrinisc compression. 2. EBUS-TBNA The linear array EBUS scope was introduced through the mouth to the subcarinal lymph node station. A lymph node was identified using EBUS at this station. Transbronchial needle aspiration using a 22 gauge aspiration needle times 3 was performed at the subcarinal under continuous endobronchial ultrasound guidance. The linear array EBUS scope was advanced to the left hilar 10L lymph node station. A lesion was identified using EBUS at this station which was encasing the left pulmonary artery. Transbronchial needle aspiration using a 22 gauge aspiration needle times 6 was performed at the 10L station under continuous endobronchial ultrasound guidance. The linear array EBUS scope was advanced to the left interlobar 11L lymph node station. A lymph node was identified using EBUS at this station. Transbronchial needle aspiration using a 22 gauge aspiration needle times 3 was performed at the 11L station under continuous endobronchial ultrasound guidance. 3 additional specimens were obtained from the 10L lymph node station using the 22 gauge needle and continuous endobronchial ultrasound guidance. These were placed directly into formalin for histopatholigic core specimen processing. Moderate Sedation: Moderate (conscious) sedation was administered by the nurse and supervised by the physician performing the procedure. The patient's oxygen saturation, heart rate, blood pressure and response to care were monitored. Total physician intraservice time was 61 minutes. Impression: - EBUS-TBNA was performed from the subcarinal ,10L and 11L lymph node stations - Additional core biopsies were obtained from the 10L lymph node station Recommendation: - Await biopsy and cytology results. Attending Participation: I was present and participated. Electronically signed by Dr. Corrales Manjit Corrales M.D. 06/19/2024 2:38:17 PM Number of Addenda: 0 Note Initiated On: 06/19/2024 1:18 PM documented in this encounter Nursing Notes * Sally Cui RN - 06/19/2024 3:09 PM CDT Patient meets all discharge criteria, is awake and stable. Discharge vitals approved by Provider. Patient ambulation at baseline, can swallow liquid without coughing. Patient to be discharged with belongings and a copy of procedure report and discharge instructions. * Aliza Coy RN - 06/19/2024 2:53 PM CDT Portable Chest X-Ray performed. PCXR read by Dr. Manjit Corrales, No pneumothorax noted. Awaiting Discharge Home. * Aliza Coy RN - 06/19/2024 2:46 PM CDT Patient c/o feeling congested, requesting his inhaler. Dr. Corrales notfied, duo neb ordered and given . * Aliza Coy RN - 06/19/2024 2:39 PM CDT Report received from Gauri Nina RN s/p Bronchoscopy. See flowsheet for VS. Awaiting PCXR. * Magdalena Nina RN - 06/19/2024 2:26 PM CDT Bronchoscopy with biopsy to 7, 10L, 11L performed by Dr. Manjit Corrales. Pt tolerated procedure well. Pt able to open eyes and follow commands prior to LMA removal. VS, [facility], ECG as noted. See provider notes and flowsheets for procedure details. Report given to Krysten Cui, ALYX, and Nicole Jaquez RN, in pre/post procedure area. Awaiting PCXR. LMA in: 1324, LMA out: 1425 Sedation given: IV Remimazolam 27.5mg, IV Fentanyl 300mcg Fluids given: 400ml 0.9NS Fluoroscopy time: 0 minutes Drug Waste 12.5mg Remimazolam and 0mcg Fentanyl wasted in pyxis with Rosa Diaz RN. [facility] Interventional Pulmonology Post Procedure Safety Debrief: [x]Post procedure nursing note to be completed by the assigned procedure registered nurse. [x]Procedure note to be completed by provider(s). [x]Post procedure orders complete in epic []Dentures returned to patient [x]NA []Loose teeth intact after LMA/ETT removal [x]NA [x]Specimens, if applicable, processed accordingly by assigned respiratory therapist(s) if patient had a bronchoscopy. Processed accordingly by assigned registered nurse if the patient had a pleural procedure. [x]Specimens, if applicable, labeled correctly accordingly by assigned respiratory therapist(s) if patient had a bronchoscopy. Labeled accordingly by assigned registered nurse if the patient had a pleural procedure. [x]All relevant patient disposition requirements complete [x]All sharps protocols followed. If patient had bronchoscopy, sharps disposed of by assigned respiratory therapist(s). If patient had a pleural procedure, sharps disposed of by assigned registered nurse. [x]Post recovery location clearly defined: Interventional Pulmonology Pre/Post [place] 5 * Magdalena Nina RN - 06/19/2024 1:22 PM CDT [facility] Interventional Pulmonology Safe to Proceed Checklist 06/19/2024 [x]Patient ID confirmed [x]Patient is having a bronchoscopy [x]Allergies and medication review complete [x]Consent obtained. If patient is receiving a pleural procedure, consent is obtained after site ultrasound has been completed. []Intended site marked if applicable [x] NA [x]Updated pre procedure and ASA note complete [x]30-day history and physical completed [] NA [x]Nursing pre-procedure documentation complete []Dentures removed [x] NA []Patient states they have loose teeth; will be reassessed after LMA/ETT removal [x] NA [x]Patient takes anticoagulation Aspirin 81 Last dose [x]Confirmed with patient, MAR, and procedural provider that all anticoagulation protocols have been followed. [] NA []Special equipment is present [x] NA []Blood products available [x] NA [x]Appropriate SBAR handoff communication to procedure team has been completed [x]All relevant labs & diagnostic imaging has been reviewed and confirmed. [x]Confirmation from all involved intraprocedural caregivers that it is safe to proceed. Any special considerations/additional specific information? No (List below if applicable) documented in this encounter Miscellaneous Notes * Pre-Sedation Documentation - Manjit Corrales Chi, MD - 06/19/2024 12:30 PM CDT Pre-Procedure/Pre-Sedation Assessment Planned Procedure: Bronchoscopy Reason for Procedure: Lung Mass/LAD The patient has been NPO for the appropriate amount of time. Past medical history per consultation/office notes. Prescribed use of blood thinner: NO Prescribed use of antiplatelet agent: NO History of thrombocytopenia or bleeding disorder: NO BP (!) 175/105 Pulse 72 Temp 36.2 ??C (97.1 ??F) (Temporal) Resp 25 Ht 175.3 cm (5' 9 ) Wt 102.1 kg (225 lb) SpO2 98% BMI 33.23 kg/m?? Physical Exam: General: No acute distress Constitutional: no fever/chills Cardiovascular: RRR, no M/R/G Pulmonary/Chest: CTAB Labs (if pertinent). ASA SCORE: 3 - Moderate systemic disease SEDATION/ANESTHESIA PLAN: MODERATE sedation Informed Consent: Benefits, risks, alternatives discussed; patient/bilingual call center representative accepts/agrees tosedation/anesthesia plan and to the procedure. Patient has tolerated sedation in the past without complication. Post Procedure Monitoring Plan: Recovery * Plan of Care - Sally Cui RN - 06/19/2024 11:58 AM CDT Problem: Diagnostic Tests Goal: Knowledge of diagnostic tests will improve Reactivated Goal: Ability to verbalize follow-up procedures will improve Reactivated documented in this encounter Plan of Treatment Not on file documented as of this encounter Procedures Procedure Name Priority Date/Time Associated Diagnosis Comments XR CHEST 1 VIEW IP Routine 06/19/2024 3:00 PM CDT SURGICAL PATHOLOGY Routine 06/19/2024 2: 28 PM CDT CYTOLOGY Routine 06/19/2024 1:30 PM CDT BRONCHOSCOPY Routine 06/19/2024 1:18 PM CDT Hilar mass documented in this encounter Results * XR Chest 1 Vw (06/19/2024 3:00 PM CDT) Anatomical Region Laterality Modality Body, Chest N/A Digital Radiogra phy 06/19/2024 3:23 PM CDT Impressions 06/19/2024 5:36 PM CDT The current study is compared with the prior radiograph dated 05/28/2024. ??Patient is status post bronchoscopy with biopsies. Redemonstration of ill-defined left perihilar nodular opacity versus mass. ??Recommend follow-up biopsy results and correlation with CT of the chest. ??No pleural effusion or pneumothorax. ??Cardiomediastinal silhouette is unchanged. Dictated by: Cody Patterson M.D. The radiology attending physician has personally reviewed this study, and had reviewed and/or edited this written report and agrees with it. Electronically signed by: Angel Almanza M.D. Narrative 06/19/2024 5:36 PM CDT EXAMINATION: 1 view chest radiograph Procedure Note Angel Almanza MD - 06/19/2024 EXAMINATION: 1 view chest radiograph IMPRESSION: The current study is compared with the prior radiograph dated 05/28/2024. Patient is status post bronchoscopy with biopsies. Redemonstration of ill-defined left perihilar nodular opacity versus mass. Recommend follow-up biopsy results and correlation with CT of the chest. No pleural effusion or pneumothorax. Cardiomediastinal silhouette is unchanged. Dictated by: Cody Patterson M.D. The radiology attending physician has personally reviewed this study, and had reviewed and/or edited this written report and agrees with it. Electronically signed by: Angel Almanza M.D. us Manjit Corrales MD IMG XR PROCEDURES Final Re sult * Surgical pathology (06/19/2024 2:28 PM CDT) Tissue (Lymph node, needle biopsy) 06/19/2024 2:28 PM CDT 06/19/2024 5:31 PM CDT Narrative PATHOLOGY [facility] - 06/21/2024 9:40 AM CDT EPIC results best viewed via link to PDF [facility] [place] [address] Note to Patients: This report may contain a detailed description of human tissue sent by a health care provider to the laboratory for pathologic evaluation. The content of this report is essential for diagnosis and may provide important critical findings. This information may be unfamiliar to patients to review without a medical professional present. It is advised that the patient review this report in the presence of a health care provider who can answer questions and explain the details. SURGICAL PATHOLOGY REPORT FINAL Patient Name: ?? JOSAFAT GRAY Gender: ??M : ??1960 (Age: 63) Address: ??[address] [place], [place] ??[address] [employer] #: ??[id number] Taken:06/19/2024 Received:06/19/2024 Reported: 06/21/2024 Patient Type: [facility] Ancillary ?? Service: Pulmonary Location: Physician(s): ??Manjit Corrales M.D. Matthew Mccabe M.D. Diagnosis: Lymph node, 10L, core biopsy ? - Hemodilute specimen with areas of necrosis, no definitive viable tumor cell present ? - A fragment of bronchial epithelial cells ? - No definitive lymphoid component present jili/06/20/2024 08:36 By this signature, I attest that the above diagnosis is based upon my personal examination of the slides(and/or other material indicated in the diagnosis). Anuja Wilson MD PhD Report Electronically Reviewed and Signed Out By ??Anuja Wilson MD PhD 06/21/2024 09:40:08 Microscopic Description and Comment: Please correlate with concurrent fine needle aspiration specimen [id number]. Roman Stanley M.D. History: The patient is a 63-year-old man presenting with left hilar mass. ??Operative procedure 10L core biopsy, left hilar mass. Specimen(s) Received: A: 10L core bx Gross Description: Received in formalin, labeled with the patient? ? s identifiers and 10L tissue are multiple cores and fragments of tissue admixed with hemorrhagic material (measuring 3.2 x 3.0 x 0.2 cm in aggregate). ?? Labeled A1 to A2. Jar 0. ?? sxst/06/19/2024 18:08 PA(s): Jenn Colon By this signature, I attest that the above diagnosis is based upon my personal examination of the slides(and/or other material). Addenda/Procedures The performance characteristics of some immunohistochemical stains, fluorescence in-situ hybridization tests and immunophenotyping by flow cytometry cited in this report (if any) were determined by the Surgical Pathology and Flow Cytometry Departments at [facility] as part of an ongoing quality improvement coordinator (rn) program and in compliance with federally mandated regulations drawn from the Clinical Laboratory Improvement Act of 1988 (CLIA '88). ??Some of these tests rely on the use of analyte specific reagents and are subject to specific labeling requirements by the US Food and Drug Administration. ??Such diagnostic tests may only be performed in a facility that is certified by the Department of Health and Human Services as a high complexity laboratory under CLIA '88. ??The FDA has determined that such clearance or approval is not necessary. ??This test is used for clinical purposes. ??It should not be regarded as investigational or for research. ??Nevertheless, federal rules concerning the medical use of analyte specific reagents require that the following disclaimer be attached to the report: This test was developed and its performance characteristics determined by the Surgical Pathology and Flow Cytometry Departments of [facility]. ??It has not been cleared or approved by the U. S. Food and Drug Administration. IMAGES AND SCANNED DOCUMENTS, IF INCLUDED, ONLY VIEWABLE IN PDF VERSION OF REPORT us Manjit Corrales MD LAB PATHOLOGY ORDERABLES F inal Result PATHOLOGY [facility] 3rd Floor [place], [place] [phone] * Cytology (06/19/2024 1:30 PM CDT) Fluid (Lymph Node (Cytology)) 06/19/2024 1:30 PM CDT 06/19/2024 2:53 PM CDT Narrative PATHOLOGY [facility] - 06/25/2024 4:42 PM CDT EPIC results best viewed via link to PDF [facility] [place] [address] Note to Patients: This report may contain a detailed description of human tissue sent by a health care provider to the laboratory for pathologic evaluation. The content of this report is essential for diagnosis and may provide important critical findings. This information may be unfamiliar to patients to review without a medical professional present. It is advised that the patient review this report in the presence of a health care provider who can answer questions and explain the details. CYTOPATHOLOGY REPORT FINAL WITH ADDENDUM Patient Name: ?? JOSAFAT GRAY Gender: ??M : ??1960 (Age: 63) Address: ??[address] [place], [place] ??[address] [employer] [facility] #: ??[id number] Taken:06/19/2024 Received:06/19/2024 Reported: 06/25/2024 Patient Type: [facility] Ancillary ?? Service: UNKNOWN Location: Physician(s): ??Ellyn Mendosa M.D. FINAL DIAGNOSIS A. ??Lymph node, subcarina, endobronchial ultrasound-guided fine needle aspiration: ?- Poorly-differentiated non-small cell carcinoma, see comment B. ??Lymph node, 10L, endobronchial ultrasound-guided fine needle aspiration: ?- Poorly-differentiated non-small cell carcinoma, see comment C. ??Lymph node, 11L, endobronchial ultrasound-guided fine needle aspiration: ?- Poorly-differentiated non-small cell carcinoma, see comment Comments The direct smears are variably cellular and show a prominent necrotic background. ??There are singly-dispersed and grouped malignant cells with enlarged nuclei, prominent nucleoli, and wdsyx-sq-[id number] cytoplasm. ?? The subcarinal lymph node shows occasional single malignant cells with more grouped malignant cells on the cell block. ??The 10L lymph node shows a focus of perineural invasion on the cell block. ??Immunohistochemical studies (single antibody procedures with appropriate controls) are performed for further characterization. ??The malignant cells are positive for CK7 and p40 (blush, patchy), while negative for TTF1, napsinA, chromogranin, synaptophysin, and INSM1. ??Given the weak expression of p40, the collective findings are best characterized as a poorly-differentiated non-small cell carcinoma of lung origin. pamo/06/20/2024 09:20 By this signature, I attest that the above diagnosis is based upon my personal examination of the slides(and/or other material indicated in the diagnosis). Galilea Dyson M.D. Report Electronically Reviewed and Signed Out By ??Galilea Dyson M.D. 06/25/2024 16:42:24 Ang Triplett [facility] Gross Description A. ??Lymph node, subcarina, endobronchial ultrasound guided fine needle aspiration: ?? 3 Pap stained smear(s) and 3 Diff-Quik stained smear(s). ??1 cell block prepared from needle rinse tube. ??Aspirated by clinician. ??(GLENN) B. ??Lymph node, 10L, endobronchial ultrasound guided fine needle aspiration: ?? 5 Pap stained smear(s) and 5 Diff-Quik stained smear(s). ??1 cell block prepared from needle rinse tube. ??Aspirated by clinician. ??(GLENN) C. ??Lymph node, 11L, endobronchial ultrasound guided fine needle aspiration: ?? 3 Pap stained smear(s) and 3 Diff-Quik stained smear(s). ??1 cell block prepared from needle rinse tube. ??Aspirated by clinician. ??(GLENN) Clinical Diagnosis and History The patient is a 63-year-old man with a left hilar mass. Immediate Evaluation A. ??Lymph node, subcarina, endobronchial ultrasound guided fine needle aspiration: ?? Evaluation Episode 1 Overall Adequacy: Adequate Total Evaluation Episodes: 1 Preliminary Diagnosis: lymphoid tissue present B. ??Lymph node, 10L, endobronchial ultrasound guided fine needle aspiration: ?? Evaluation Episode 1 Overall Adequacy: Adequate Evaluation Episode 2 Overall Adequacy: Adequate Total Evaluation Episodes: 2 Preliminary Diagnosis: positive for malignancy; favor non-small cell carcinoma C. ??Lymph node, 11L, endobronchial ultrasound guided fine needle aspiration: ?? Evaluation Episode 1 Overall Adequacy: Adequate Total Evaluation Episodes: 1 Preliminary Diagnosis: suspicious for non-small cell carcinoma Galilea Dyson M.D. 06/19/2024 Addenda/Procedures Addendum Ordered:07/25/2024Status:Signed OutAddendum Complete:07/25/2024y:Galilea Dyson M.D.Addendum Signed Out:07/29/2024 Addendum Diagnosis A digital scan of the original reference lab report will begin on page two of this addendum. ?? By this signature, I attest that the above diagnosis is based upon my personal examination of the slides(and/or other material indicated in the diagnosis). Galilea Dyson M.D.Report Electronically Reviewed and Signed Out By ??Galilea Dyson M.D. ??07/29/2024 10:43:01 ?? The PD-L1 Keytruda test was performed at [facility], [address] [place] [address], [address], [place] [address]. REPORT IMAGES AND SCANNED DOCUMENTS, IF INCLUDED, ONLY VIEWABLE IN PDF VERSION OF REPORT The performance characteristics of some immunohistochemical stains, in-situ hybridization and fluorescence in-situ hybridization tests and immunophenotyping by flow cytometry cited in this report (if any) were determined by the Surgical Pathology and Flow Cytometry Departments at [facility] as part of an ongoing quality improvement coordinator (rn) program and in compliance with federally mandated regulations drawn from the Clinical Laboratory Improvement Act of 1988 (CLIA '88). ??Some of these tests rely on the use of analyte specific reagents and are subject to specific labeling requirements by the US Food and Drug Administration. ??Such diagnostic tests may only be performed in a facility that is certified by the Department of Health and Human Services as a high complexity laboratory under CLIA '88. ??The FDA has determined that such clearance or approval is not necessary. ??This test is used for clinical purposes. ??It should not be regarded as investigational or for research. ??Nevertheless, federal rules concerning the medical use of analyte specific reagents require that the following disclaimer be attached to the report: ??This test was developed and its performance characteristics determined by the Surgical Pathology and Flow Cytometry Departments of [facility]. ??It has not been cleared or approved by the U. S. Food and Drug Administration. Manjit Corrales MD LAB CYTOLOGY ORDERABLES Fi nal Result PATHOLOGY [facility] 3rd Floor [place], [place] [phone] * Bronchoscopy -[facility] Interventional Pulm; Bronchoscopy, EBUS LINEAR (06/19/2024 1:18 PM CDT) Anatomical Region Laterality Modality Other Narrative Procedure Note Manjit Corrales Chi, MD - 06/19/2024 1:18 PM CDT [facility] Interventional Pulmonary Patient Name: Josafat Gray Procedure Date: 06/19/2024 1:18 PM Date of : 1960 Admit Type: Outpatient Age: 63 Gender: Male Note Status: Finalized Procedure: Bronchoscopy EBUS-TBNA and core biopsy Indications: Left hilar mass Providers: Manjit Corrales M.D. Referring MD: Nu Martinez PA-C Medicines: Lidocaine 1% applied to cords 10 mL, Lidocaine 1% subglottic space 20 mL, Fentanyl 300 mcg IV, Remimazolam 27.5 mg IV Complications: No immediate complications Procedure: Pre-Anesthesia Assessment: - The risks and benefits of the procedure and the sedation options and risks were discussed with the patient. All questions were answered and informed consent was obtained. After obtaining informed consent, the Bronchoscopewas introduced through the mouth, via laryngeal mask airway and advanced to the tracheobronchial tree of both lungs. the Bronchoscope was introduced through the and advanced to the. The procedure was accomplished without difficulty. The patienttolerated the procedure well. Estimated Blood Loss: Estimated blood loss was minimal. Findings: 1. Airway inspection The laryngeal mask airway is in good position. The vocal cords appear normal. The subglottic space is normal. The trachea is of normal caliber. The richard is sharp. The tracheobronchial tree was examinedto at least the first subsegmental level. Bronchial mucosa and anatomyof the right bronchial tree is grossly normal; there are noendobronchial lesions, and no secretions. Left bronchial tree: some erythema was noted within the left mainstem bronchus along the posterior wall extending into the left upper lobe bronchus which was narrowed due to extrinisc compression. 2. EBUS-TBNA The linear array EBUS scope was introduced through the mouth to the subcarinal lymph node station. A lymph node was identified using EBUSat this station. Transbronchial needle aspiration using a 22 gauge aspiration needle times 3 was performed at the subcarinal under continuousendobronchial ultrasound guidance. The linear array EBUS scope was advanced to the left hilar 10L lymph node station. A lesion was identified using EBUS at this stationwhich was encasing the left pulmonary artery. Transbronchial needle aspiration using a 22 gauge aspiration needle times 6 was performed at the 10L station under continuousendobronchial ultrasound guidance. The linear array EBUS scope was advanced to the left interlobar 11L lymph node station. A lymph node was identified using EBUS at this station. Transbronchial needle aspiration using a 22 gauge aspiration needle times 3 was performed at the 11L station under continuousendobronchial ultrasound guidance. 3 additional specimens were obtained from the 10L lymph node station using the 22 gauge needle and continuous endobronchial ultrasound guidance. These were placed directly into formalin forhistopatholigic core specimen processing. Moderate Sedation: Moderate (conscious) sedation was administered by the nurse and supervised by the physician performing the procedure. The patient's oxygen saturation, heart rate, blood pressure and response to carewere monitored. Total physician intraservice time was 61 minutes. Impression: - EBUS-TBNA was performed from the subcarinal ,10Land 11L lymph node stations - Additional core biopsies were obtained from the10L lymph node station Recommendation: - Await biopsy and cytology results. Attending Participation: I was present and participated. Electronically signed by Dr. Corrales Manjit Corrales M.D. 06/19/2024 2:38:17 PM Number of Addenda: 0 Note Initiated On: 06/19/2024 1:18 PM us Manjit Corrales MD BRONCH ORDERABLES Final Re sult documented in this encounter Visit Diagnoses Diagnosis Hilar mass documented in this encounter Administered Medications Inactive Administered Medications - up to 3 most recent administrations Medication Order MAR Action Action Date Dose Rate Site fentaNYL (SUBLIMAZE) preservative free injection Code/trauma/sedation medication, Starting on Mon06/19/24 at 1324 Given 06/19/2024 1:57 PM CDT 50 mcg Given 06/19/2024 1:45 PM CDT 50 mcg Given 06/19/2024 1:34 PM CDT 50 mcg ipratropium-albuteroL (DUO-NEB) 0.5-2.5 mg/3 mL nebulizer solution 3 mL 3 mL, nebulization, 4 times daily (respiratory care assistant), First dose on Mon06/19/24 at 1515, Indications: Chronic Obstructive Pulmonary Disease with BronchospasmsIndications:Chronic Obstructive Pulmonary Disease with Bronchospasms Given 06/19/2024 2:44 PM CDT 3 mL remimazolam (BYFAVO) 2.5 mg/mL injection intravenous, Administer over 1 Minutes, Code/trauma/sedation medication, Starting on Mon06/19/24 at 1324 Given 06/19/2024 2:14 PM CDT 2.5 mg Given 06/19/2024 2:08 PM CDT 2.5 mg Given 06/19/2024 2:02 PM CDT 2.5 mg sodium chloride 0.9% bolus 1,000 mL 1,000 mL, intravenous, at 250 mL/hr, Administer over 4 Hours, As needed, asuncion-procedure, Starting on Mon06/19/24 at 1157, Clinic/Ambulatory - Active, incremental boluses, up to 1L total, per provider for asuncion-procedure medication administration and BP management, Indications: Postoperative Care, hypotension, procedureIndications:Postoperative Care,hypotension,procedure New Bag 06/19/2024 1:00 PM CDT 1,000 mL 250 mL/hr documented in this encounter Discontinued Medications Medication Sig Discontinue Reason Start Date End Da te fluticasone propionate (FLONASE) 50 mcg/actuation nasal spray Administer into each nostril daily Therapy completed 12/14/2022 06/19/2024 hydroCHLOROthiazide (HYDRODIURIL) 25 mg tablet Take 1 tablet (25 mg total) by mouth daily Therapy completed 01/29/2024 06/19/2024 documented as of this encounter Care Teams Marbleizing Machine Tender Relationship Specialty Start Date End Date Matthew Mccabe MD [address] [place] [address] PCP - General Family Medicine 05/13/24 documented as of this encounter
--- OUTSIDE RECORDS SUMMARY | 2024-10-30 07:04 | XMS_ITS | Encounter Summary ---
Author Organization [facility] Address [address] [place] [address] Phone Care Team Providers Care Plexiglas Former Name Role Phone Matthew Mccabe MD Primary Care Prov ider Encounter Details Date Type Department Care Team (Late st Contact Info) Description 05/21/2024 Orders Only [facility] Pulmonary [address] [facility] 8th [place] [address] [place] [address] Manjit Corrales Chi, MD [address] [place], [place] [id number] Localized enlarged lymph nodes (Primary Dx) Social History Tobacco Use Types Packs/Day Years Used Date Smoking Tobacco: Never Assessed Personal Safety Answer Date Recorded Getting School Help Needed Not on file 05/08 Sex and Gender Information Value Date Recorded Sex Assigned at Not on file 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 Electronically signed by: El Plasencia M.D. Manjit Corrales MD IMG XR PROCEDURES Final Re sult documented in this encounter Visit Diagnoses Diagnosis Localized enlarged lymph nodes- Primary Localized enlarged lymph nodes documented in this encounter Care Teams Plexiglas Former Relationship Specialty Start Date End Date Matthew Mccabe MD [address] [place] [address] PCP - General Family Medicine 05/13/24 documented as of this encounter
--- OUTSIDE RECORDS SUMMARY | 2024-10-30 07:04 | XMS_ITS | Encounter Summary ---
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 documented in this encounter Plan of Treatment Not on file documented as of this encounter Visit Diagnoses Not on filedocumented in this encounter Care Teams Parts Assembler Relationship Specialty Start Date End Date Matthew Mccabe MD [address] [place] [address] PCP - General Family Medicine 05/13/24 Stan Meza MD [address] [facility], [address] [place] [address] Medical Oncologist/Epic Ambulatory Analyst Medical Oncology 06/28/24 documented as of this encounter
--- OUTSIDE RECORDS SUMMARY | 2024-10-30 07:04 | XMS_ITS | Encounter Summary ---
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 I asked the patient the following screening questions prior to the pre-procedure instructions: 1.Have you traveled outside the [place] in the last 6 months?No 2. Have you been exposed to anyone who is sick in the last 30 days?No 3. Have you been exposed to or tested positive for COVID-19 within the last 10 days?No 4. Are you having any of the following? None of these Pre-procedure instructions: The patient stated that they did receive their pre-procedure instructions in the mail, email, or MyChart. Instructed the patient to arrive at [facility] Admitting/Registration Office on [facility] on tomorrow 06/19 at 1130. 3. Instructed patient that if patient will be receiving sedation they will not be able to eat or drink anything after midnight on 06/18/2024 but may take sips of water with their AM medications (except blood thinner per discussion below). 4. Patient stated patient does not use oxygen at home. If the patient uses home oxygen, even if they only use oxygen during sleep periods, they are to bring enough home oxygen supply to get themselves to and from [facility]. 5. Patient stated that patient does use a CPAP or BIPAP device. Instructed patient, if they use a CPAP or BIPAP, to bring in their device or bring documentation of their CPAP/BIPAP settings with themto their appointment. 6. The patient will need a rolloff driver or will need to arrange their own transportation home after theirprocedure. Patient stated patient does have a ride home after procedure. Emphasized that departmental staff will confirm transportation prior to the procedure. 7. Patient confirmed that the patient does have some one who will stay with them for at least 24 hours post discharge. Emphasized that, for their safety, the patient may have to be admitted for 23 hours post procedure if they do not have some one who will stay with them for at least 24 hours post discharge. 8. The patient will need to bring a list of their current home medications including all herbal supplements and all non-prescription/over the counter medications. 9. Patient stated that patient does take anticoagulants. If the patient stated they do take anticoagulants, the anticoagulant taken is Aspirin 81. Date of last dose taken: 06/18/24 10. Patient stated that they are not diabetic. If insulin dependent diabetic, the patient may take 1/2 of their PM insulin dose the evening prior to their procedure. If non-insulin dependent, they are to hold their oral diabetic medications the day of their procedure. The patient is also to check their finger stick blood glucose the morning of their procedure if they are diabetic. 11. Patient confirmed that the patient and their family are familiar on the location of the [facility] Admitting Office for pre- procedure registration and any lab work that may be ordered. Discussed that the patient is not to go to the [facility] for their appointment. Confirmed they are aware of what time to arrive at the [facility] Admitting Office. 12. I reviewed the following [facility] Visitor Policy that was updated 01/2022 with patient : A. Each patient is only allowed two visitors for an outpatient procedure/appointment. B. Visitors will be screened upon arrival to the hospital with the aforementioned coronavirus questions. Any yes answer to questions will result in the visitor being denied entrance to this facility. C. All visitors are expected to remain in the Surgical Registration and Waiting Area the entire time they are waiting on the patient and will not be allowed in the procedure area. D. All visitors are expected to follow posted hand hygiene protocols. E. Instructed patient that effective 01/18/23, masks are optional. F. Patient verbalized confirmation of visitor policy and verbalized understanding that failure to comply with aforementioned policy or if their visitor/family does not pass the coronavirus screening questions, the visitor/family will be asked to leave the hospital immediately. 12. Patient verbalized confirmation that they will call and notify us if they are having any fever, cough, shortness of breath, sore throat, lost of taste or smell, diarrhea, vomiting,or are waiting on a COVID test result between the time of this call and the time of their procedure. 13. Patient verbalized confirmation and understanding of above instructions & I answered all questions from the patient/family. 14. Call Ended 06/18/2024 documented in this encounter Plan of Treatment Not on file documented as of this encounter Visit Diagnoses Not on filedocumented in this encounter Care Teams Bottom Cager Relationship Specialty Start Date End Date Matthew Mccabe MD [address] [place] [address] PCP - General Family Medicine 05/13/24 documented as of this encounter
--- OUTSIDE RECORDS SUMMARY | 2024-10-30 07:04 | XMS_ITS | Encounter Summary ---
Author Organization [facility] Address [address] [place] [address] Phone Care Team Providers Care Senior Care Assistant Name Role Phone Matthew Mccabe MD Primary Care Prov ider Stan Meza MD Unavailable [phone] Reason for Referral * Diagnostic Lab (Routine) - Authorized Specialty Diagnoses / Procedures Referred By Florentino lowe Referred To Contact Lab Diagnoses 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) Procedures GatewaySeq NGS with interpretation Stan Meza MD [address] [place] [address] Phone: tel: fax: Referral ID Status Reason Start Date Expiration Date V isits Requested Visits Authorized [id number] Authorized 07/18/2024 08/17/2025 1 1 * MRI/CAT/PET Scan (Routine) - Closed Specialty Diagnoses / Procedures Referred By Florentino lowe Referred To Contact Radiology Diagnoses 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) Procedures PET/CT FDG Skull to Thigh Stan Meza MD [address] [place] [address] Phone: tel: fax: [address] [phone] Referral ID Status Reason Start Date Expiration Date Visits Re quested Visits Authorized [id number] Closed 07/18/2024 08/17/2025 2 2 * MRI/CAT/PET Scan (Routine) - Closed Specialty Diagnoses / Procedures Referred By Contac t Referred To Contact Radiology Diagnoses 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) Procedures MRI Brain W WO Contrast Stan Meza MD [address] [place] [address] Phone: tel: fax: [address] [phone] Referral ID Status Reason Start Date Expiration Date Visits Re quested Visits Authorized [id number] Closed 07/18/2024 08/17/2025 1 1 Reason for Visit * Oncology (Routine) - Authorized Specialty Diagnoses / Procedures Referred By Contac t Referred To Contact Oncology Diagnoses Malignant neoplasm of lung, unspecified laterality, unspecified part of lung (HCC) Manjit Corrales Chi, MD [address] [place] [address] Phone: tel: fax: [facility] 7th [place] [address] [place] [address] Phone: tel: fax: Referral ID Status Reason Start Date Expiration Date Visits Requested Visits Authorized [id number] Authorized Specialty Services Required 06/28/2024 07/28/2025 99 99 Encounter Details Date Type Department Care Team (Late st Contact Info) Description 07/18/2024 9:00 AM CDT Office Visit [facility] 7th [place] [address] [place] [id number] Stan Meza MD [address] [place] [address] 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) (Primary Dx); Malignant neoplasm of lung, unspecified laterality, unspecified part of lung (HCC) Social History Tobacco Use [...] on file 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 Gender Identity Not on file Sexual Orientation Not on file documented as of this encounter Last Filed Vital Signs Vital Sign Reading Time Taken Comments Blood Pressure 137/85 07/18/2024 9:03 AM CDT Pulse 90 07/18/2024 9:03 AM CDT Temperature 36.5 ??C (97.7 ??F) 07/18/2024 9:03 AM CD T Respiratory Rate 18 07/18/2024 9:03 AM CDT Oxygen Saturation 97% 07/18/2024 9:03 AM CDT Inhaled Oxygen Concentration - - Weight 99.3 kg (219 lb) 07/18/2024 9:03 AM CDT Height 170 cm (5' 6.93 ) 07/18/2024 9:03 AM CDT Body Mass Index 34.37 07/18/2024 9:03 AM CDT documented in this encounter Progress Notes * Rusty Contreras MD - 07/18/2024 9:00 AM CDT Images from the original note were not included. Oncology Medicine Consult Josafat Sarina Umesh 1960 07/18/2024 Manjit Corrales MD Reason for Visit: Patient referred by Dr. Manjit Corrales for further management of his poorly differentiated non-small cell lung cancer. History of Present Illness: [facility]. He endorses 3-4 days of a substernal chest pain that is exacerbated with coughing and with palpation. He has also reported some intermittent shortness of breath requiring his duonebs though this has been stable recently and an intermittent cough productive of porter phlegm. He believes that he has lost weight and had a decreased appetite over the last month. He has no fevers, chills, abdominal pain, diarrhea, constipation, swelling. Past Medical History: Hypertension Mitral regurgitation Peripheral [...] mg /3 mL (0.083 %) nebulizer solution 2.5 MG (3 ML) INHALED EVERY 4 - 6 HOURS NEEDED FOR SHORTNESS OF BREATH OR WHEEZING albuterol HFA (PROVENTIL HFA,VENTOLIN HFA,PROAIR HFA) 90 mcg/actuation inhaler Inhale 2 puffs every6 (six) hours as needed alfuzosin ER (UROXATRAL) 10 mg 24 hr tablet Take 1 tablet (10 mg total) by mouth daily aspirin 81 mg chewable tablet CHEW AND SWALLOW 1 TAB DAILY atorvastatin (LIPITOR) 40 mg tablet Take 1 tablet (40 mg total) by mouth daily busPIRone (BUSPAR) 7.5 mg tablet TAKE 1 TABLET BY MOUTH TWICE A DAY FOR 30 DAYS carvediloL (COREG) 12.5 mg tablet Take 1 tablet (12.5 mg total) by mouth cholecalciferol (VITAMIN D-3) 2000 unit capsule TAKE 1 CAPSULE BY MOUTH EVERY DAY FOR 30 DAYS eplerenone (INSPRA) 25 mg tablet Take 1 tablet (25 mg total) by mouth daily ipratropium-albuteroL (DUO-NEB) 0.5-2.5 mg/3 mL nebulizer solution lamoTRIgine (LaMICtal) 100 mg tablet Take 1 tablet (100 mg total) by mouth 2 (two) times a day latanoprost (XALATAN) 0.005 % ophthalmic solution INSTILL ONE DROP INTO BOTH EYES AT NIGHT losartan (COZAAR) 50 mg tablet mirtazapine (REMERON) 7.5 mg tablet daily nicotine (NICODERM CQ) [address] 1 patch on the skin daily Has but isn't currently using nicotine polacrilex (NICORETTE) 4 mg gum Take 1 each (4 mg total) by mouth as needed Has but not currently using omeprazole (PriLOSEC) 40 mg capsule Take 1 capsule (40 mg total) by mouth daily before breakfast Symbicort 160-4.5 mcg/actuation inhaler Inhale 2 puffs daily traMADoL (ULTRAM) 50 mg tablet Take 1 tablet (50 mg total) by mouth 2 (two) times a day triamcinolone (KENALOG) 0.1 % cream Apply topically 2 (two) times a day ziprasidone (GEODON) 80 mg capsule 1 capsule (80 mg total) varenicline tartrate (CHANTIX) 1 mg tablet Take 1 tablet (1 mg total) by mouth 2 (two) times a day Has but not currently taking (Patient not taking: Reported on 07/18/2024) No current facility-administered medications for this visit. Allergies Allergen Reactions Lisinopril Anaphylaxis and Unknown Penicillins Anaphylaxis, Swelling and Unknown Review of Systems: Constitutional: Denies diaphoresis, fever, fatigue. Endorses weight loss. HENT: Denies congestion, hearing loss and sore throat. Eyes: Denies blurred vision and pain. Respiratory: Endorses shortness of breath, cough, sputum production and hemoptysis. Cardiovascular: Endorses chest pain, palpitations, and leg swelling. Gastrointestinal: Denies abdominal pain, constipation, diarrhea, heartburn, nausea and vomiting. Genitourinary: Denies dysuria, flank pain, frequency and urgency. Musculoskeletal:Denies back pain, joint pain and myalgias Skin: Denies itching and rash. Extremities; No edema. Neurological: Denies dizziness, focal weakness and headaches. Psychiatric/Behavioral: Denies depression, memory loss, insomnia and suicidal ideas. ECOG performance status 1 Physical Exam: Vital Signs: Most Recent : Vitals: 07/18/24 0903 BP: 137/85 BP Location: Right arm Pulse: 90 Resp: 18 Temp: 36.5 ??C (97.7 ??F) TempSrc: Transdermal SpO2: 97% Weight: 99.3 kg (219 lb) Height: 170 cm (5' 6.93 ) Constitutional: Patient is well-nourished, and in no [...] no distension or mass. There is no tenderness, rebound or guarding. Musculoskeletal: Normal range of motion. No tenderness or deformity. Thickened SCM on the left siderelative to the right. Neurological: Patient alert and oriented to person, place, and time. No cranial nerve deficit. Gaitnormal. Extremities: No edema. Skin: Skin is warm and dry. No rash or erythema Psychiatric: Mood, memory, affect and judgment normal. Pathology Imaging CT 04/17/24 Assessment: Mr. Calvo is a 63-year-old man with poorly differentiated non-small cell lung cancer metastatic tothe mediastinal lymph nodes. Patient should have PET scan and brain MRI to complete the staging, PD-L1 and genomic profile, prior to a treatment decision. At this point, he has at least a stage IIIB NSCLC due to the presence of multiple lymph nodes on both sides of the chest. He will require additional evaluation to assess for distant metastatic disease. Plan: CBC, chemistry, and coagulation profile 2. PET 3. Brain MRI 4. PD-L1 testing in the tumor 5. [place] sequencing 6. Guardant sequencing 7. RTC 08/01/24 Cosigned by Stan Meza MD at 07/18/2024 2:00 PM CDT Associated attestation - Stan Meza MD - 07/18/2024 2:00 PM CDT Patient seen and evaluated with Dr. Contreras. I agree with the plan as outlined in his note. Mr. Calvo is a 63-year-old man with clinical stage III poorly differentiated NSCLC. The sternal pain is concerning for metastasis. He should have PET scan and brain MRI to complete staging and guide the best treatent strategy. documented in this encounter Plan of Treatment Scheduled Orders Name Type Priority Associated Diagnoses Orde r Schedule GatewaySeq NGS with interpretation Lab Routine 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) Ordered: 07/18/2024 documented as of this encounter Results * (ABNORMAL) Comprehensive metabolic panel (08/01/2024 8:02 AM CDT) Sodium 133(L) 135 - 145 mmol/L Potassium, pl 3.6 3.3 - 4.9 mmol/L [facility] Chloride 98 97 - 110 mmol/L [facility] CO2 28 22 - 32 mmol/L [facility] Anion gap 7 2 - 15 mmol/L [facility] BUN 6 6 - 25 mg/dL [facility] Creatinine 0.66(L) 0.80 - 1.30 mg/dL [facility] Glucose 104 70 - 199 mg/dL [facility] Comment: Interpretive Data Fasting glucose >/= 126 [...] 2022. Calcium 9.6 8.5 - 10.3 mg/dL [facility] Bilirubin, total 0.4 0.1 - 1.2 mg/dL [facility] Protein, pl 7.6 6.5 - 8.5 g/dL [facility] Albumin 3.3(L) 3.5 - 5.0 g/dL [facility] Alk phos 125 40 - 130 Units/L [facility] ALT 19 7 - 55 Units/L [facility] AST 18 10 - 50 Units/L [facility] Blood 08/01/2024 8:02 AM CDT 08/01/2024 8:15 AM CDT us Stan Meza MD LAB BLOOD ORDERABLES Yolette banda Result [facility] One [facility] Department [place] [address] * (ABNORMAL) CBC with auto differential (08/01/2024 8:02 AM CDT) Pathologist [facility] [place] WBC 9.3 3.8 - 9.9 K/cumm Comment:Testing performed by : [facility], [address] [place] [phone] Hgb 11.7(L) 13.0 - 17.5 g/dL [facility] Comment:Testing performed by : [facility], [address] [place] [phone] Hct 35.5(L) 38.9 - 50.3 % [facility] Comment:Testing performed by : [facility], [address] [place] [address] Plt 345 150 - 400 K/cumm [facility] Comment:Testing performed by : [facility], [address] [place] [address] MPV 6.9 6.8 - 10.4 fL [facility] Comment:Testing performed by : [facility], [address] [place] [address] RBC 4.26(L) 4.30 - 5.80 M/cumm [facility] Comment:Testing performed by : [facility], [address] [place] [address] MCV 83.5 81.3 - 96.4 fL [facility] Comment:Testing performed by : [facility], [address] [place], [place] [phone] MCH 27.5 27.1 - 33.3 pg [facility] Comment:Testing performed by : [facility], [address] [place] [address] MCHC 33.0 32.3 - 35.7 g/dL [facility] Comment:Testing performed by : [facility], [address] [place] [address] RDW CV 12.9 11.1 - 14.9 % [facility] Comment:Testing performed by : [facility], [address] [place] [address] NRBC abs 0.00 0.00 - 0.01 K/cumm [facility] Comment:Testing performed by : [facility], [address] [place] [address] Blood 08/01/2024 8:02 AM CDT 08/01/2024 8:08 AM CDT us Stan Meza MD LAB BLOOD ORDERABLES Yolette banda Result [facility] One [facility] Department [place] [address] * PET/CT FDG Skull to Thigh (07/31/2024 [...] FDG-PET/CT IMAGING DATE OF STUDY: ??07/31/2024 SCANNER: [facility] [employer] ([employer]). ??This is a high-resolution scanner, which [...] obtained. ??The study was interpreted on the [employer] workstation. ??The mean liver SUV (reported for water quality control engineer purposes) is 2.8. ?? The total scanned [...] FDG-PET/CT IMAGING DATE OF STUDY: 07/31/2024 SCANNER: [facility] [employer] ([employer]). This is a high-resolution scanner, which [...] obtained. The study was interpreted on the [employer] workstation. The mean liver SUV (reported for water quality control engineer purposes) is 2.8. The total scanned area [...] it. Electronically signed by: Mitchell Colmenares M.D. Stan Meza MD IM PET PROCEDURES Final [...] Meza MD IMG MRI PROCEDURES Final Result * (ABNORMAL) Protime-INR (07/18/2024 10:50 AM CDT) PT 13.7(H) 9.7 - 13.0 sec INR 1.26(H) 0.90 - 1.20 [facility]MA [facility] Comment: Interpretive data Oral anticoagulant therapeutic ranges: Venous thromboembolism prophylaxis or treatment: 2.0-3.0 CARDIOLOGY Standard range: 2.0-3.0 High-intensity range: 2.5-3.5 Refer to indication-specific guidelines for appropriate target ranges for prosthetic heart valve replacement. Current interpretive data was last revised on 2019. Blood 07/18/2024 10:5 0 AM CDT 07/18/2024 11:22 AM CDT Stan Meza MD LAB BLOOD ORDERABLES Yolette banda Result [facility] One [facility] Department [place] [address] * aPTT (07/18/2024 10:50 AM CDT) aPTT 30 28 - 38 sec Comment: Interpretive Data Heparin therapeutic range: 66.0 - 100.0 seconds. Range based on correlation with therapeutic heparin activity range of 0.3 - 0.7 Units/mL. Current interpretive data was last revised on 2023. Blood 07/18/2024 10:5 0 AM CDT 07/18/2024 11:22 AM CDT us Stan Meza MD LAB BLOOD ORDERABLES Yolette veronika Result [facility] One [facility] Department [place] [address] * (ABNORMAL) Comprehensive metabolic panel (07/18/2024 10:50 AM CDT) Sodium 131(L) 135 - 145 mmol/L Comment:Testing performed by : [facility], [address] [place] [phone] Potassium, pl 3.8 3.3 - 4.9 mmol/L [facility] Comment:Testing performed by : [facility], [address] [place] [phone] Chloride 96(L) 97 - 110 mmol/L [facility] Comment:Testing performed by : [facility], [address] [place] [phone] CO2 25 22 - 32 mmol/L [facility] Comment:Testing performed by : [address] [phone] Anion gap 10 2 - 15 mmol/L [facility] Comment:Testing performed by : [facility], [address] [place] [phone] BUN 4(L) 6 - 25 mg/dL [facility] Comment:Testing performed by : [facility], [address] [place] [phone] Creatinine 0.70(L) 0.80 - 1.30 mg/dL [facility] Comment:Testing performed by : [facility], [address] [place] [phone] Glucose 102 70 - 199 mg/dL [facility] Comment: Interpretive Data Fasting glucose >/= [...] was last revised 2022. Testing performed by: [facility], [address] [place] [phone] Calcium 9.6 8.5 - 10.3 mg/dL [facility] Comment:Testing performed by : [address] [phone] Bilirubin, total 0.6 0.1 - 1.2 mg/dL [facility] Comment:Testing performed by : [address] [phone] Protein, pl 7.7 6.5 - 8.5 g/dL [facility] Comment:Testing performed by : [address] [phone] Albumin 4.1 3.5 - 5.0 g/dL [facility] Comment:Testing performed by : [address] [phone] Alk phos 164(H) 40 - 130 Units/L [facility] Comment:Testing performed by : [address] [phone] ALT 9 7 - 55 Units/L [facility] Comment:Testing performed by : [address] [phone] AST 13 10 - 50 Units/L [facility] Comment:Testing performed by : [address] [phone] Blood 07/18/2024 10:5 0 AM CDT 07/18/2024 10:53 AM CDT Stan Meza MD LAB BLOOD ORDERABLES Yolette banad Result [facility] One [facility] Department [place] [address] * (ABNORMAL) CBC with auto differential (07/18/2024 10:50 AM CDT) WBC 8.2 3.8 - 9.8 K/cumm Comment:Testing performed by : [facility], [address] [place] [phone] Hgb 12.9(L) 13.8 - 17.2 g/dL [facility] Comment:Testing performed by : [address] [phone] Hct 39.3(L) 40.7 - 50.3 % [facility] Comment:Testing performed by : [place] [id number] Plt 201 140 - 440 K/cumm [facility] Comment:Testing performed by : [facility], [address] [place] [phone] MPV 7.3 6.8 - 10.4 fL [facility] Comment:Testing performed by : [address] [phone] RBC 4.56 4.50 - 5.70 M/cumm [facility] Comment:Testing performed by : [place] [id number] MCV 86.2 80.0 - 97.6 fL [facility] Comment:Testing performed by : [facility], [address] [place] [phone] MCH 28.4 26.7 - 33.7 pg [facility] Comment:Testing performed by : [address] [phone] MCHC 32.9 32.7 - 35.5 g/dL [facility] Comment:Testing performed by : [address] [phone] RDW CV 13.2 11.8 - 14.6 % [facility] Comment:Testing performed by : [facility], [address] [place] [phone] NRBC abs 0.00 0.00 - 0.01 K/cumm [facility] Comment:Testing performed by : [facility], [address] [facility] [phone] Blood 07/18/2024 10:5 0 AM CDT 07/18/2024 10:53 AM CDT Stan Meza MD LAB BLOOD ORDERABLES Yolette l Result Performing Organization Address [facility]/ZIP Co de Phone Number [facility] One [facility] Department [place] [address] * [place] [address] CDx (07/18/2024 10:33 AM CDT) MSI-HIGH NOT DETECTED 07/27/2024 12:48 PM CDT [facility] Blood specimen (specimen) (Blood, Venous) 07/18/2024 10:33 AM CDT 07/19/2024 12:39 PM CDT Narrative This result has genomic variants that were not included in this document. Stan Meza MD LAB GENETIC TESTING Final Result Performing Organization Address [facility]/ZIP Co de Phone Number [facility] [address] [place] [phone] documented in this encounter Visit Diagnoses Diagnosis 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)- Primary Malignant neoplasm of lung, unspecified laterality, unspecified part of lung (HCC) 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) 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) documented in this encounter Historical Medications * This list may reflect changes made after this encounter. Medication Sig Dispense Quantity Refills Last Filled Start D ate End Date mirtazapine (REMERON) 7.5 mg tablet daily 07/17/2024 added in this encounter Orders Outpatient Referral Count Last Ordered Date Fir st Ordered Date AMB REFERRAL TO ONCOLOGY 1 07/18/2024 Appointment Requests Count Last Ordered Date Fi rst Ordered Date ONCBCN CLINIC APPOINTMENT REQUEST 1 024 ONCBCN LAB APPOINTMENT 2 07/18/2024 documented in this encounter Care Teams Senior Care Assistant Relationship Specialty Start Date End Date Matthew Mccabe MD [address] [place] [address] PCP - General Family Medicine 05/13/24 Stan Meza MD [address] [facility] IM MEDICAL ONCOLOGY, [address] [place] [address] Medical Oncologist/Fire Investigation Manager Medical Oncology 06/28/24 documented as of this encounter
--- OUTSIDE RECORDS SUMMARY | 2024-10-30 07:04 | XMS_ITS | Encounter Summary ---
Author Organization [facility] Healthcare Address [address] [place] [address] Care Team Providers Care Family Day Carer Name Role Phone Matthew Mccabe MD Primary Care Prov ider Stan Meza MD Unavailable [phone] Encounter Details Date Type Department Care Team (Late st Contact Info) Description 08/09/2024 7:53 AM CDT - 08/09/2024 11:59 PM CDT Hospital Encounter [facility] Radiation Oncology [address] [facility] Advanced Medicine 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
--- OUTSIDE RECORDS SUMMARY | 2024-10-30 07:04 | XMS_ITS | Encounter Summary ---
Author Organization [facility] Address [address] [place] [address] Phone Care Team Providers Care Naphthalene Operator Helper Name Role Phone Matthew Mccabe MD Primary Care Prov ider Stan Meza MD Unavailable [phone] Encounter Details Date Type Department Care Team (Late st Contact Info) Description 07/25/2024 Social Work [facility] Oncology [address] [facility] 7th [place] [address] [place] [address] Sarah Brunner LCSW Social History [...] on file 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 SW will remain available to assist as needed. documented in this encounter Plan of Treatment Not on file documented as of this encounter Visit Diagnoses Not on filedocumented in this encounter Care Teams Naphthalene Operator Helper Relationship Specialty Start Date End Date Matthew Mccabe MD [address] [place] [address] PCP - General Family Medicine 05/13/24 Stan Meza MD [address] [facility], [address] [place] [address] Medical Oncologist/Recreation Director Medical Oncology 06/28/24 documented as of this encounter
--- OUTSIDE RECORDS SUMMARY | 2024-10-30 07:04 | XMS_ITS | Encounter Summary ---
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 Gender Identity Not on file Sexual Orientation Not on file documented as of this encounter Plan of Treatment Not on file documented as of this encounter Procedures Procedure Name Priority Date/Time Associated Diagnosis Comments EGFR STAT 08/01/2024 8:02 AM CDT Primary [...] documented in this encounter Results * eGFR (08/01/2024 8:02 AM CDT) eGFR [...] MD LAB BLOOD ORDERABLES Yolette banda Result [facility] Department [place] [address] * (ABNORMAL) Differential, auto (08/01/2024 8:02 AM CDT) Neutrophil abs 5.7 1.5 - 6.5 K/cumm Comment:Testing performed by : Former[facility] Heme Lab, [address] [place] [address] Lymphocyte abs 1.9 0.8 - 3.3 K/cumm [facility] Comment:Testing performed by : [facility]e [facility], [address] [place], [place] [phone] Monocyte abs 1.1(H) 0.2 - 0.8 K/cumm [facility] Comment:Testing performed by : [facility]e [facility], [address] [place], [place] [phone] Eosinophil abs 0.5 0.0 - 0.5 K/cumm [facility] Comment:Testing performed by : Former[facility]e [facility], [address] [place] [phone] Basophil abs 0.1 0.0 - 0.1 K/cumm [facility] Comment:Testing performed by : [facility]e [facility], [address] [place] [phone] Neutrophil pct 61.6 % [facility] Comment: Interpretive Data Percent cell count reference ranges are not reported, since discordance with absolute values may lead to misinterpretation of CBC data. Current Interpretive Data was last revised on 2018. Testing performed by: [facility]e Lab, [address] [place] [phone] Lymphocyte pct 20.3 % [facility] Comment: Interpretive Data Percent cell count reference ranges are not reported, since discordance with absolute values may lead to misinterpretation of CBC data. Current Interpretive Data was last revised on 2018. Testing performed by: [facility]e Lab, [address] [place] [phone] Monocyte pct 11.9 % [facility] Comment: Interpretive Data Percent cell count reference ranges are not reported, since discordance with absolute values may lead to misinterpretation of CBC data. Current Interpretive Data was last revised on 2018. Testing performed by: [facility] Heme Lab, [address] [place] [phone] Eosinophil pct 5.4 % [facility] Comment: Interpretive Data Percent cell count reference ranges are not reported, since discordance with absolute values may lead to misinterpretation of CBC data. Current Interpretive Data was last revised on 2018. Testing performed by: [facility] Lab, [address] [place] [phone] Basophil pct 0.8 % [facility] Comment: Interpretive Data Percent cell count reference ranges are not reported, since discordance with absolute values may lead to misinterpretation of CBC data. Current Interpretive Data was last revised on 2018. Testing performed by: [facility]e Lab, [address] [place] [phone] Blood 08/01/2024 8:02 AM CDT 08/01/2024 8:08 AM CDT us Stan Meza MD LAB BLOOD ORDERABLES Yolette l Result [facility] Department [place] [address] * (ABNORMAL) CBC with auto differential (08/01/2024 8:02 AM CDT) WBC 9.3 3.8 - 9.9 K/cumm Comment:Testing performed by : [facility]e Lab, [address] [place] [phone] Hgb 11.7(L) 13.0 - 17.5 g/dL [facility] Comment:Testing performed by : [facility]e Lab, [address] [place], [place] [phone] Hct 35.5(L) 38.9 - 50.3 % [facility] Comment:Testing performed by : [facility]e Lab, [address] [place], [place] [phone] Plt 345 150 - 400 K/cumm [facility] Comment:Testing performed by : [facility]e Lab, [address] [place], [place] [phone] MPV 6.9 6.8 - 10.4 fL [facility] Comment:Testing performed by : [facility]e Lab, [address] [place], [place] [phone] RBC 4.26(L) 4.30 - 5.80 M/cumm [facility] Comment:Testing performed by : [facility]e Lab, [address] [place], [place] [phone] MCV 83.5 81.3 - 96.4 fL [facility] Comment:Testing performed by : [facility]e Lab, [address] [place], [place] [phone] MCH 27.5 27.1 - 33.3 pg [facility] Comment:Testing performed by : [facility]e Lab, [address] [place] [address] MCHC 33.0 32.3 - 35.7 g/dL [facility] Comment:Testing performed by : [facility]e Lab, [address] [place] [address] RDW CV 12.9 11.1 - 14.9 % [facility] Comment:Testing performed by : [facility]e Lab, [address] [place] [address] NRBC abs 0.00 0.00 - 0.01 K/cumm [facility] Comment:Testing performed by : [facility]e Lab, [address] [place], [place] [phone] Blood 08/01/2024 8:02 AM CDT 08/01/2024 8:08 AM CDT Stan Meza MD LAB BLOOD ORDERABLES Yolette l Result Performing Organization Address City/State/[facility] Co de Phone Number [facility] Department [place] [address] * (ABNORMAL) Comprehensive metabolic panel (08/01/2024 8:02 AM CDT) Sodium 133(L) 135 - 145 mmol/L Potassium, pl 3.6 3.3 - 4.9 mmol/L [facility] Chloride 98 97 - 110 mmol/L [facility] CO2 28 22 - 32 mmol/L [facility] Anion gap 7 2 - 15 mmol/L [facility] BUN 6 6 - 25 mg/dL [facility] Creatinine 0.66(L) 0.80 - 1.30 mg/dL [facility] Glucose 104 70 - 199 mg/dL [facility] Comment: Interpretive Data Fasting glucose >/= 126 [...] 2022. Calcium 9.6 8.5 - 10.3 mg/dL [facility] Bilirubin, total 0.4 0.1 - 1.2 mg/dL [facility] Protein, pl 7.6 6.5 - 8.5 g/dL [facility] Albumin 3.3(L) 3.5 - 5.0 g/dL [facility] Alk phos 125 40 - 130 Units/L [facility] ALT 19 7 - 55 Units/L [facility] AST 18 10 - 50 Units/L [facility] Blood 08/01/2024 8:02 AM CDT 08/01/2024 8:15 AM CDT Stan Meza MD LAB BLOOD ORDERABLES Yolette l Result [facility] Department [place] [address] documented in this encounter Visit Diagnoses Diagnosis 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) documented in this encounter Care Teams Radio Tower Technician Relationship Specialty Start Date End Date Matthew Mccabe MD [address] [place] [address] PCP - General Family Medicine 05/13/24 Stan Meza MD [address] [facility] MEDICAL ONCOLOGY, [address] [place] [address] Medical Oncologist/Residential Fee Appraiser Medical Oncology 06/28/24 documented as of this encounter
--- OUTSIDE RECORDS SUMMARY | 2024-10-30 07:04 | XMS_ITS | Encounter Summary ---
Author Organization [facility] Healthcare Address [address] [place] [address] Care Team Providers Care Industrial Mechanic Name Role Phone Matthew Mccabe MD Primary Care Prov ider Stan Meza MD Unavailable [phone] Reason for Visit * MRI/CAT/PET Scan (Routine) - Closed Specialty Diagnoses / Procedures Referred By Contac t Referred To Contact Radiology Diagnoses 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) Procedures PET/CT FDG Skull to Thigh Stan Meza MD [address] [place] [address] Phone: tel: fax: [address] [phone] Referral ID Status Reason Start Date Expiration Date Visits Re quested Visits Authorized [id number] Closed 07/18/2024 08/17/2025 2 2 Encounter Details Date Type Department Care Team (Latest Contact Info) Description 07/31/2024 1:24 PM CDT - 07/31/2024 11:59 PM CDT Hospital Encounter [facility] - PET [address] [facility] [address] [place] [address] Discharge Disposition: Discharge to home or self [...] on file 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 ??This is a high-resolution scanner, which [...] obtained. ??The study was interpreted on the [employer] workstation. ??The mean liver SUV (reported for quality improvement consultant purposes) is 2.8. ?? The total scanned [...] FDG-PET/CT IMAGING DATE OF STUDY: 07/31/2024 SCANNER: [facility] [employer] (SQ1). This is a high-resolution scanner, which [...] obtained. The study was interpreted on the [employer] workstation. The mean liver SUV (reported for quality improvement consultant purposes) is 2.8. The total scanned area [...] Meza MD IM PET PROCEDURES Final Result documented in this encounter Visit Diagnoses Not on filedocumented in this encounter Care Teams Industrial Mechanic Relationship Specialty Start Date End Date Matthew cMcabe MD [address] [place] [id number] PCP - General Family Medicine 05/13/24 Stan Meza MD [address] [facility] MED[facility] ONCOL[facility]Y, [address] [place] [address] Medical Oncologist/Advertising Internship Medical Oncology 06/28/24 documented as of this encounter
--- OUTSIDE RECORDS SUMMARY | 2024-10-30 07:04 | XMS_ITS | Encounter Summary ---
Author Organization [facility] Healthcare Address [address] [place] [address] Care Team Providers Care Graphic Pre Press Trades Worker Name Role Phone Matthew Mccabe MD Primary Care Prov ider Stan Meza MD Unavailable [phone] Reason for Visit * Reason Comments Consult * Consultation (Urgent) - Closed Specialty Diagnoses / Procedures Referred By Contac t Referred To Contact Radiation Oncology Diagnoses 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) Stan Meza MD [address] [place] [address] Phone: tel: fax: Jeffrey Ham MD [address] [facility] [place] [address] Phone: tel: fax: Referral ID Status Reason Start Date Expiration Date V isits Requested Visits Authorized [id number] Closed Specialty Services Required 08/01/2024 08/31/2025 1 1 Encounter Details Date Type Department Care Team (Late st Contact Info) Description 08/01/2024 10:00 AM CDT Consult [facility] Radiation Oncology [address] [facility] [place] [address] Jeffrey Ham MD [address] [place] [address] Primary malignant neoplasm of left lung metastatic [...] on file 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 Gender Identity Not on file Sexual Orientation Not on file documented as of this encounter Last Filed Vital Signs Vital Sign Reading Time Taken Comments Blood Pressure 134/85 08/01/2024 9:50 AM CDT Pulse 100 08/01/2024 9:50 AM CDT Temperature 36.6 ??C (97.9 ??F) 08/01/2024 9:50 AM CD T Respiratory Rate 22 08/01/2024 9:50 AM CDT Oxygen Saturation 97% 08/01/2024 9:50 AM CDT room air Inhaled Oxygen Concentration - - Weight 97.5 kg (215 lb) 08/01/2024 9:50 AM CDT Height 167.6 cm (5' 6 ) 08/01/2024 9:50 AM CDT Body Mass Index 34.7 08/01/2024 9:50 AM CDT documented in this encounter Consult Notes * Nitin Loyola MD - 08/01/2024 11:00 AM CDT Department of Radiation Oncology Consult Note Josafat Calvo 1960 MD Susana Barr Daniel, MD Date of service: 08/01/2024 Identifying Data: 63 y.o. male with metastatic NSCLC with painful sternum and sacrum metastases. Subjective History of present illness: This is a 63-year-old male who had been undergoing annual lung cancer screening CT for at least 3-4years who was found to have left hilar fullness per report on screening CT 03/01/2024. CT chest 04/17/2024 showed a hilar mass and mediastinal lymphadenopathy and a hypointense liver lesion. Bronchoscopy with biopsy of the subcarinal and left hilar lymph nodes on 06/19/2024 showed poorly differentiated nti-ztyyr-oxes carcinoma. PET/CT 07/31/2024 demonstrated a large hypermetabolic sternal lesion and a large hypermetabolic sacral lesion. There was also a large hypermetabolic left hilar mass and hypermetabolic mediastinal lymphadenopathy, new small indeterminate pulmonary nodules, subcutaneous soft tissue deposits, bilateral adrenal gland activity. MRI brain 07/31/2024 showed no evidence of in tracranial metastatic disease. Today he notes severe pain in his sternum, 9/10 in intensity. He also has pain in his lower back, 3/10 in intensity. His pain medication was adjusted today, and he will be starting dexamethasone fromhis medical oncologist. 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, lymph nodes, bone PVD (peripheral vascular disease) (HCC) Sleep apnea Vocal cord paralysis Past Surgical History Past Surgical History: Procedure Laterality Date BRONCHOSCOPY Left 06/19/2024 w/ lymph node biopsy FLUORO GUIDED ASPIRATION OR INJECTION LARGE JOINT BILATERAL Bilateral 10/14/2020 FLUORO GUIDED ASPIRATION OR INJECTION LARGE JOINT BILATERAL Bilateral 06/26/2019 FLUORO GUIDED ASPIRATION OR INJECTION LARGE JOINT BILATERAL Bilateral 06/26/2019 REPLACEMENT TOTAL KNEE Left Contraindications to Radiation Therapy: Prior radiation therapy No Pacemaker No Connective tissue disease No Inflammatory bowel disease No Medications Current Outpatient Medications Medication Sig Dispense Refill [...] using (Patient not taking: Reported on 08/01/2024) oxyCODONE (ROXICODONE) 5 mg immediate release tablet Take 1-2 tablets (5-10 mg total) by mouth every 4 (four) hours as needed for pain 120 tablet 0 varenicline tartrate (CHANTIX) 1 mg tablet Take 1 tablet (1 mg total) by mouth 2 (two) times a day Has but not currently taking (Patient not taking: Reported on 07/18/2024) No current facility-administered medications for this visit. Allergies Allergies Allergen Reactions Lisinopril Anaphylaxis and Unknown Penicillins Anaphylaxis, Swelling and Unknown Family History Cancer-related family history includes Cancer in his brother and mother. Family History Problem Relation Age of Onset Thyroid disease Mother Cancer Mother Heart disease Father Heart failure Father Asthma Sister Cancer Brother Stroke Maternal Grandmother Diabetes Maternal Grandmother Social History Social History Tobacco Use Smoking Status Every Day Current packs/day: 1.00 Types: Cigarettes Passive exposure: Past Smokeless Tobacco Never The [place] in [place] [address] Objective Review of Systems Pain: 9 Review of Systems Physical Examination: Performance Status: (1) Restricted in physically strenuous activity, ambulatory and able to do workof light nature Physical Exam Constitutional: General: He is not in acute distress. Appearance: Normal appearance. HENT: Head: Normocephalic and atraumatic. Pulmonary: Effort: Pulmonary effort is normal. No respiratory distress. Abdominal: General: There is no distension. Musculoskeletal: Comments: Pain to palpation of sternum and to percussion of sacral spine Skin: General: Skin is warm and dry. Neurological: General: No focal deficit present. Mental Status: He is alert. Mental status is at baseline. Gait: Gait normal. Psychiatric: Mood and Affect: Mood normal. Behavior: Behavior normal. Thought Content: Thought content normal. Judgment: Judgment normal. Imaging: PET/CT FDG Skull to Thigh Result Date: 07/31/2024 1. Overall disease progression since the CT dated 04/17/2024 with markedly FDG avid malignant left hilar mass and metastatic left supraclavicular, mediastinal, hilar juan, osseous, bilateral adrenal,subcutaneous/intramuscular deposits, and contralateral lung disease. 2. Small left pleural effusionwith left upper pleural nodularity likely represents additional [...] it. Electronically signed by: Mitchell Colmenares M.D. MRI Brain W WO Contrast Result Date: 07/31/2024 1. No evidence of intracranial metastatic disease. 2. Advanced microvascular ischemic changes and prior right cerebellar infarct. Dictated by: Get Stanley MD The radiology attending physician has personally reviewed this study, and had reviewed and/or edited this written report and agrees with it. Electronically signed by: Ian Butler MD CT Body Outside Reference Result Date: 07/19/2024 These images are for Reference purposes only and have not been reviewed by [facility]. There will be no report generated by a [facility] Radiologist. Laboratory Data: Recent Results (from the past 24 hour(s)) Comprehensive metabolic panel Collection Time: 08/01/24 8:02 AM Result Value Ref Range Sodium 133 (L) 135 - 145 mmol/L Potassium, pl 3.6 3.3 - 4.9 mmol/L Chloride 98 97 - 110 mmol/L CO2 28 22 - 32 mmol/L Anion gap 7 2 - 15 mmol/L BUN 6 6 - 25 mg/dL Creatinine 0.66 (L) 0.80 - 1.30 mg/dL Glucose 104 70 - 199 mg/dL Calcium 9.6 8.5 - 10.3 mg/dL Bilirubin, total 0.4 0.1 - 1.2 mg/dL Protein, pl 7.6 6.5 - 8.5 g/dL Albumin 3.3 (L) 3.5 - 5.0 g/dL Alk phos 125 40 - 130 Units/L ALT 19 7 - 55 Units/L AST 18 10 - 50 Units/L CBC with auto differential Collection Time: 08/01/24 8:02 AM Result Value Ref Range WBC 9.3 3.8 - 9.9 K/cumm Hgb 11.7 (L) 13.0 - 17.5 g/dL Hct 35.5 (L) 38.9 - 50.3 % Plt 345 150 - 400 K/cumm MPV 6.9 6.8 - 10.4 fL RBC 4.26 (L) 4.30 - 5.80 M/cumm MCV 83.5 81.3 - 96.4 fL MCH 27.5 27.1 - 33.3 pg MCHC 33.0 32.3 - 35.7 g/dL RDW CV 12.9 11.1 - 14.9 % NRBC abs 0.00 0.00 - 0.01 K/cumm Differential, auto Collection Time: 08/01/24 8:02 AM Result Value Ref Range Neutrophil abs 5.7 1.5 - 6.5 K/cumm Lymphocyte abs 1.9 0.8 - 3.3 K/cumm Monocyte abs 1.1 (H) 0.2 - 0.8 K/cumm Eosinophil abs 0.5 0.0 - 0.5 K/cumm Basophil abs 0.1 0.0 - 0.1 K/cumm Neutrophil pct 61.6 % Lymphocyte pct 20.3 % Monocyte pct 11.9 % Eosinophil pct 5.4 % Basophil pct 0.8 % eGFR Collection Time: 08/01/24 8:02 AM Result Value Ref Range eGFR >90 >=60 mL/min/1.73 m2 Pathology review: As per HPI Assessment: 63 y.o. male with metastatic NSCLC with painful sternum and sacrum metastases. We reviewed treatment options for bone metastasis including supportive care, surgical options, as well as radiotherapy. Of the available options, palliative radiotherapy is reasonable. Palliative radiotherapy may be used to decrease pain in the affected area or prevent further complications. We reviewed the indications and logistics of palliative radiotherapy including CT simulation, treatment planning, and treatment delivery. We reviewed acute side effects such as fatigue, skin changes, and bone pain flair among others. Late side effects were reviewed including the risk of re-treatment amongothers. All of his questions were addressed and answered. Consent documentation was signed. Recommendations 1) CT simulation in the coming days after which we will plan for a course of 20 Gy in 5 fraction(s)to the sternum and sacrum. To expedite treatment given the limited simulation availability, we willarrange for sim-free treatment. 2) Pain Plan: The patient's pain is currently being managed by Medical Oncology . Inspector Process completed by using [employer] Direct speaking software, therefore, transcriptionvariances may occur. Cosigned by Jeffrey Ham MD at 08/02/2024 11:30 AM CDT Associated attestation - Jeffrey Ham MD - 08/02/2024 11:30 AM CDT I have seen and examined the patient. I agree with the findings and plan of care as documented in the resident/fellow's note. My total encounter time on 08/01/2024 was 60 minutes which was spent in the activities documented in the note. This includes time spent prior to the visit and after the visitin direct care of the patient. This time does not include time spent in any separately reportable services. documented in this encounter Nursing Notes * Floridalma Rubin, RN - 08/01/2024 10:00 AM CDT Date: 08/01/2024 [x]CONSULT/[]FOLLOW UP /[]OTV/[]SKIN CHECK NAME: Josafat Calvo : 1960 AGE: 63 y.o. Patient info: Patient ambulatory with slow, but steady gait. He is visibly in a lot of pain. Patient c/o chest/sternal pain that is continuous, but exacerbated with cough and tender to touch. He alsoreports increased lower back pain, but denies recent fall. Patient also notes intermittent shortness of breath with productive cough containing white/porter sputum, but no blood. He also notes recent weight loss and decreased appetite. He lives alone, but has family nearby. He had a fiber worker that he recently let go, but with new diagnoses, he says he will contact them again. CANCER DX: Malignant neoplasm to left lung; secondary malignant neoplasm to bone RT/ FRACTIONS COMPLETED: Boost: Treatment finish date: Wt. Last visit: Wt Readings from Last 3 Encounters: 08/01/24 97.5 kg (215 lb) 08/01/24 97.7 kg (215 lb 6.4 oz) 07/18/24 99.3 kg (219 lb) Vitals BP 134/85 (BP Location: Right arm, Patient Position: Sitting) Pulse 100 Temp 36.6 ??C (97.9 ??F) (Oral) Resp 22 Ht 167.6 cm (5' 6 ) Wt 97.5 kg (215 lb) SpO2 97% BMI 34.70 kg/m?? Pain: 08/08 (chest/sternal, low back) Pacemaker or Implant: yes[] no[x] Patient Concerns: pain, decreased appetite, fatigue All patients: [x]- weight loss []- fever/chills []- nausea/vomiting []- falls at home Neurological: []- headache []- vision changes []- balance []- stability []- weakness/speech Thorax: []- trouble swallowing [x]- shortness of breath [x]- cough /prostate: []- burning on urination []- urinary frequency []- diarrhea/loose stools []- blood in stool/urine Notes: Patient already established with med/onc. Referral for social work and sketcher to be placed for community resources and evaluation. documented in this encounter Plan of Treatment Not on file documented as of this encounter Visit Diagnoses Diagnosis 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)- Primary Primary cancer of left lower lobe of lung (HCC) documented in this encounter Discontinued Medications Medication Sig Discontinue Reason Start Date End Da te ipratropium-albuteroL (DUO-NEB) 0.5-2.5 mg/3 mL nebulizer solution Duplicate order 05/26/202408/01 documented as of this encounter Orders Outpatient Referral Count Last Ordered Date Fir st Ordered Date AMB REFERRAL TO RADIATION ONCOLOGY 1 2023 documented in this encounter Care Teams Graphic Pre Press Trades Worker Relationship Specialty Start Date End Date Matthew Mccabe MD [address] [place] [address] PCP - General Family Medicine 05/13/24 Stan Meza MD [address] [facility] MEDICAL ONCOLOGY, [address] [place] [address] Medical Oncologist/Dispatch Lead Medical Oncology 06/28/24 documented as of this encounter
--- OUTSIDE RECORDS SUMMARY | 2024-10-30 07:04 | XMS_ITS | Encounter Summary ---
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 Noted loss of about 10 lbs in past 2 months - dx of NSCLC. Patent starting XRT 08/09. RD called pt and received voicemail. Message requesting call back was left. RD contact information provided. Will f/u with pt as able. Gladis Evans, MS, RD, LD Clinical Dietitian, [facility] [phone] documented in this encounter Plan of Treatment Not on file documented as of this encounter Visit Diagnoses Not on filedocumented in this encounter Care Teams Cleaner And Presser Relationship Specialty Start Date End Date Matthew Mccabe MD [address] [place] [address] PCP - General Family Medicine 05/13/24 Stan Meza MD [address] [facility] MEDICAL ONCOLOGY, [address] [address] Medical Oncologist/Grey Stock Recorder Medical Oncology 06/28/24 documented as of this encounter
--- OUTSIDE RECORDS SUMMARY | 2024-10-30 07:04 | XMS_ITS | Encounter Summary ---
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 Electronically signed by: Angel Almanza M.D. Manjit Corrales MD IMG XR PROCEDURES Final Re sult documented in this encounter Visit Diagnoses Not on filedocumented in this encounter Care Teams Ward Helper Relationship Specialty Start Date End Date Matthew Mccabe MD [address] [place] [address] PCP - General Family Medicine 05/13/24 documented as of this encounter
--- OUTSIDE RECORDS SUMMARY | 2024-10-30 07:04 | XMS_ITS | Encounter Summary ---
Author Organization [facility] Address [address] [place] [address] Phone Care Team Providers Care Speech Clinician Name Role Phone Matthew Mccabe MD Primary Care Prov ider Reason for Referral * Pulmonology (Routine) - Closed Specialty Diagnoses / Procedures Referred By Contac t Referred To Contact Pulmonary Disease Diagnoses Hilar mass Procedures Bronchoscopy -[facility] Interventional Pulm; Bronchoscopy, EBUS LINEAR Manjit Corrales Chi, MD [address] [place] [address] Phone: tel: fax: Referral ID Status Reason Start Date Expiration Date Visits Re quested Visits Authorized [id number] Closed 05/28/2024 06/27/2025 1 1 Encounter Details Date Type Department Care Team (Late st Contact Info) Description 05/28/2024 Orders Only [facility] Pulmonary [address] [facility] Advanced Medicine 8th [place] [address] [place] [id number] Pito Lewis RMA Hilar mass (Primary Dx) Social History Tobacco Use Types Packs/Day Years Used Date Smoking Tobacco: Every Day Cigarettes Smokeless Tobacco: Never Personal Safety Answer Date Recorded Getting School Help Needed Not on file 05/08 Sex and Gender Information Value Date Recorded Sex Assigned at Not on file 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 Interventional Pulm; Bronchoscopy, EBUS LINEAR (06/19/2024 1:18 PM CDT) Anatomical Region Laterality Modality Other Narrative Procedure Note Manjit Corrales Chi, MD - 06/19/2024 1:18 PM CDT [facility] Interventional Pulmonary Patient Name: Josafat Calvo Procedure Date: 06/19/2024 1:18 PM Date of [...] 0 Note Initiated On: 06/19/2024 1:18 PM Manjit Corrales MD BRONCH ORDERABLES Final Re sult documented in this encounter Visit Diagnoses Diagnosis Hilar mass- Primary Hilar mass documented in this encounter Care Teams Speech Clinician Relationship Specialty Start Date End Date Matthew Mccabe MD [address] [place] [address] PCP - General Family Medicine 05/13/24 documented as of this encounter
--- OUTSIDE RECORDS SUMMARY | 2024-10-30 07:04 | XMS_ITS | Encounter Summary ---
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 SW reminded patient that SW needs to have Dr. Meza sign the form on 07/25 and then SW will send it in. He thanked SW and will f/u with any additional questions. documented in this encounter Plan of Treatment Not on file documented as of this encounter Visit Diagnoses Not on filedocumented in this encounter Care Teams Cardiology Rn Relationship Specialty Start Date End Date Matthew Mccabe MD [address] [place] [address] PCP - General Family Medicine 05/13/24 Stan Meza MD [address] [facility] MEDICAL ONCOLOGY[address] [place] [address] Medical Oncologist/911 Telecommunicator Medical Oncology 06/28/24 documented as of this encounter
--- OUTSIDE RECORDS SUMMARY | 2024-10-30 07:04 | XMS_ITS | Encounter Summary ---
Author Organization [facility] Address [address] [place] [address] Phone Care Team Providers Care Wire Repairer Name Role Phone Matthew Mccabe MD Primary Care Prov ider Reason for Visit * Consultation (Routine) - Authorized Specialty Diagnoses / Procedures Referred By Contac t Referred To Contact Pulmonary Disease / Pulmonology Diagnoses Localized enlarged lymph nodes Nu Martinez PA [address] [place] [address] Phone: tel: fax: Stan Maria MD [address] [place] [address] Phone: tel: fax: Referral ID Status Reason Start Date Expiration Date Visits Requested Visits Authorized [id number] Authorized Specialty Services Required 05/08/2024 06/07/2025 12 12 Encounter Details Date Type Department Care Team (Late st Contact Info) Description 05/28/2024 10:00 AM CDT Office Visit [facility] Pulmonary [address] 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 Gender Identity Not on file Sexual Orientation Not on file documented as of this encounter Last Filed Vital Signs Vital Sign Reading Time Taken Comments Blood Pressure 160/99 05/28/2024 9:20 AM CDT Pulse 68 05/28/2024 9:20 AM CDT Temperature 36.9 ??C (98.4 ??F) 05/28/2024 9:20 AM CD T Respiratory Rate 18 05/28/2024 9:20 AM CDT Oxygen Saturation 98% 05/28/2024 9:20 AM CDT Inhaled Oxygen Concentration - - Weight 101.2 kg (223 lb) 05/28/2024 9:20 AM CDT Height 171.5 cm (5' 7.5 ) 05/28/2024 9:20 AM CDT Body Mass Index 34.41 05/28/2024 9:20 AM CDT documented in this encounter Patient Instructions * Patient Instructions* Manjit Corrales Chi, MD - 05/28/2024 10:00 AM CDT We will schedule you for bronchoscopy. documented in this encounter Progress Notes * Dana Sanchez MD - 05/28/2024 10:00 AM CDT Images from the original note were not included. Interventional Pulmonology Intial Outpatient Consult Reason for Consult: Evaluation for Biopsy of lung nodule/ nodes Requesting Provider: Juan CARNES Subjective Patient is a 63 y.o. male who was ref to IP for evaluation of worsening left hilar mass and associated lymphadenopathy. He has a h/o of COPD, CHF with improved EF He denies any symptoms today, deniesany recent hospitalizations or copd exacerbations. No other acute complaints today. No past medical history on file. Past Surgical History: Procedure Laterality Date FLUORO GUIDED ASPIRATION OR INJECTION LARGE JOINT BILATERAL Bilateral 10/14/2020 FLUORO GUIDED ASPIRATION OR INJECTION LARGE JOINT BILATERAL Bilateral 06/26/2019 FLUORO GUIDED ASPIRATION OR INJECTION LARGE JOINT BILATERAL Bilateral 06/26/2019 (Not in a hospital admission) Allergies Allergen Reactions Lisinopril Anaphylaxis and Unknown Penicillins Anaphylaxis, Swelling and Unknown Social History Tobacco Use Smoking status: Every Day Types: Cigarettes Smokeless tobacco: Never Substance and Sexual Activity Drug use: None Sexual activity: None Alcohol Use: Not At Risk (12/07/2022) Received from [facility] Health AUDIT-C Frequency of Alcohol Consumption: 2-4 times a month Average Number of Drinks: 1 or 2 Frequency of Binge Drinking: Never Family History Problem Relation Age of Onset Thyroid disease Mother Cancer Mother Heart disease Father Heart failure Father Asthma Sister Cancer Brother Stroke Maternal Grandmother Diabetes Maternal Grandmother Review of Systems: @BTLROS@ Objective Vitals: Vitals: 05/28/24 0920 BP: 160/99 Pulse: 68 Resp: 18 Temp: 36.9 ??C (98.4 ??F) TempSrc: Oral SpO2: 98% Weight: 101.2 kg (223 lb) Height: 171.5 cm (5' 7.5 ) Most Recent : Vitals BP 160/99 Pulse 68 Temp 36.9 ??C (98.4 ??F) (Oral) Resp 18 Ht 171.5 cm (5' 7.5 ) Wt 101.2 kg (223 lb) SpO2 98% BMI 34.41 kg/m?? Physical Exam: Gen: NAD, seated comfortably HEENT: sclera anicteric CV: RRR, no m/r/g Lungs: CTAB, equal expansion b/l Neuro: CN II-XII grossly intact, no focal deficits Psych: Appropriate mood and affect Lab/Radiology/Diagnostic Review: Results for orders placed or performed during the hospital encounter of 05/28/24 Pulmonary Function Test - Result Value Ref Range FVC PRE 2.84 L FVC %PRE PRED 80 % FVC POST 2.81 L FVC %POST PRED 80 % FEV1 PRE 2.24 L FEV1 %PRE PRED 81 % FEV1 POST 2.21 L FEV1 %POST PRED 80 % FEV1/FVC PRE 78.8 % FEV1/FVC POST 78.7 % FRC PL PRE 3.[address] %PRE PRED 118 % RV PRE 3.04 L RV %PRE PRED 140 % TLC PRE 6.24 L TLC %PRE PRED 96 % DLCO PRE 19.8 ml/min/mmHg DLCO %PRE PRED 78 % CT SCAN 04/17/2024 INDICATION: Left hilar mass. Personal history of nicotine dependence. COMPARISON: Chest CT 03/01/2024 FINDINGS: There is mild emphysema. There is chronic peripheral septal thickening in the lungs. No bronchiectasis or honeycombing. No pleural effusion. The heart size is normal. There are coronary artery calcifications. No pericardial effusion. There is mediastinal and bilateral hilar lymphadenopathy. For example, a left hilar juan mass measures 4.6 x 2.6 cm. There is mass effect on the pulmonary arteries at the left hilum. Calcifications in the liver and spleen are consistent with old granulomatous disease. There is a 10 mm cyst in the liver. There is a 3.4 cm cyst in left kidney. There is mild bilateral gynecomastia. There are old healed left rib fractures. There is severe mid thoracic spondylosis. There are bridging endplate osteophytes at multiple levels in the spine, consistent with diffuse idiopathic skeletal hyperostosis (DISH). IMPRESSION: 1. Bilateral hilar and mediastinal lymphadenopathy, consistent with metastatic disease. Assessment /Plan 63 yr old with worsening left hilar mass risk factor includes smoking. - will plan for bronchoscopy with biopsy with EBUS. Dana Sanchez Interventional Rental Sales Representative Pager [phone] Discussed and seen with Dr. Corrales, IP attending. Cosigned by Manjit Corrales Chi, MD at 06/18/2024 11:43 AM CDT Associated attestation - Manjit Corrales Chi, MD - 06/18/2024 11:43 AM CDT I have seen and examined the patient. I agree with the findings and plan of care as documented in the resident/fellow's note. My total encounter time on 05/28/2024 was 45 minutes which was spent in the activities documented in the note. This includes time spent prior to the visit and after the visitin direct care of the patient. This time does not include time spent in any separately reportable services. documented in this encounter Plan of Treatment Not on file documented as of this encounter Visit Diagnoses Diagnosis Localized enlarged lymph nodes documented in this encounter Historical Medications * This list may reflect changes made after this encounter. nicotine (NICODERM CQ) [address] 1 patch on the skin daily Has but isn't currently using 11/06/2017 nicotine polacrilex (NICORETTE) 4 mg gum Take 1 each (4 mg total) by mouth as needed Has but not currently using 01/19/2022 varenicline tartrate (CHANTIX) 1 mg tablet Take 1 tablet (1 mg total) by mouth 2 (two) times a day Has but not currently taking 05/30/2023 triamcinolone (KENALOG) 0.1 % cream Apply topically 2 (two) times a day 08/16/2019 losartan (COZAAR) 50 mg tablet Take 1 tablet (50 mg total) by mouth daily 05/27/2024 latanoprost (XALATAN) 0.005 % ophthalmic solution 1 drop nightly 01/25/2019 lamoTRIgine (LaMICtal) 100 mg tablet Take 1 tablet (100 mg total) by mouth 2 (two) times a day cholecalciferol (VITAMIN D-3) 2000 unit capsule 02/21/2024 Symbicort 160-4.5 mcg/actuation inhaler Inhale 2 puffs daily 08/29/2023 albuterol 2.5 mg /3 mL (0.083 %) nebulizer solution Take 3 mL (2.5 mg total) by nebulization every 4 (four) hours as needed for shortness of breath or wheezing acetaminophen 500 mg capsule Take 1 capsule (500 mg total) by mouth every 4 (four) hours as needed alfuzosin ER (UROXATRAL) 10 mg 24 hr tablet Take 1 tablet (10 mg total) by mouth daily albuterol HFA (PROVENTIL HFA,VENTOLIN HFA,PROAIR HFA) 90 mcg/actuation inhaler Inhale 2 puffs every 6 (six) hours as needed 06/03/2019 aspirin 81 mg chewable tablet Take 1 tablet (81 mg total) by mouth daily 02/13/2023 omeprazole (PriLOSEC) 40 mg capsule Take 1 capsule (40 mg total) by mouth daily before breakfast 05/14/2019 eplerenone (INSPRA) 25 mg tablet Take 1 tablet (25 mg total) by mouth daily 01/29/2024 carvediloL (COREG) 12.5 mg tablet Take 1 tablet (12.5 mg total) by mouth 2 (two) times a day with meals 01/29/2024 atorvastatin (LIPITOR) 40 mg tablet Take 1 tablet (40 mg total) by mouth daily busPIRone (BUSPAR) 7.5 mg tablet Take 1 tablet (7.5 mg total) by mouth 2 (two) times a day ziprasidone (GEODON) 80 mg capsule Take 1 capsule (80 mg total) by mouth 2 (two) times a day with meals traMADoL (ULTRAM) 50 mg tablet Take 1 tablet (50 mg total) by mouth 2 (two) times a day 05/06/2024 4 ipratropium-albu teroL (DUO-NEB) 0.5-2.5 mg/3 mL nebulizer solution 05/26/2024 4 fluticasone propionate (FLONASE) 50 mcg/actuation nasal spray Administer into each nostril daily 12/14/2022 4 hydroCHLOROthiaz michelle (HYDRODIURIL) 25 mg tablet Take 1 tablet (25 mg total) by mouth daily 01/29/2024 4 added in this encounter Orders Outpatient Referral Count Last Ordered Date Fir st Ordered Date AMB REFERRAL TO PULMONOLOGY 1 05/28/2024 documented in this encounter Care Teams Wire Repairer Relationship Specialty Start Date End Date Matthew Mccabe MD [address] [place] [address] PCP - General Family Medicine 05/13/24 documented as of this encounter
--- OUTSIDE RECORDS SUMMARY | 2024-10-30 07:04 | XMS_ITS | Encounter Summary ---
Author Organization [facility] Address [address] [place] [address] Phone Care Team Providers Care Central Office Installer Name Role Phone Matthew Mccabe MD Primary Care Prov ider Stan Meza MD Unavailable [phone] Reason for Referral * Consultation (Urgent) - Closed Specialty Diagnoses / Procedures Referred By Contac t Referred To Contact Radiation Oncology Diagnoses Primary cancer of left lower lobe of lung (HCC) Stan Meza MD [address] [place] [address] Phone: tel: fax: Jeffrey Lagos MD [address] [place] [address] [address] [place] [address] Phone: tel: fax: Referral ID Status Reason Start Date Expiration Date V isits Requested Visits Authorized [id number] Closed Specialty Services Required 08/01/2024 08/31/2025 1 1 Question Answer Please select the performing region: [facility] [[id number]] Please select the performing department: [facility] RAD ONC [[id number]] To provider: JEFFREY LAGOS [[id number]] # of visits: 1 Comments Lung cancer, sternal pain Encounter Details Date Type Department Care Team (Late st Contact Info) Description 08/01/2024 9:20 AM CDT Office Visit [facility] On[facility] Floor [address] [place] [id number] Stan Meza MD [address] [place] [address] Prophylaxis for chemotherapy-induced neutropenia (Primary Dx); Primary cancer of left [...] on file 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 Gender Identity Not on file Sexual Orientation Not on file documented as of this encounter Last Filed Vital Signs Vital Sign Reading Time Taken Comments Blood Pressure 134/86 08/01/2024 8:19 AM CDT Pulse 90 08/01/2024 8:19 AM CDT Temperature 36.3 ??C (97.4 ??F) 08/01/2024 8:19 AM CD T Respiratory Rate 19 08/01/2024 8:19 AM CDT Oxygen Saturation 98% 08/01/2024 8:19 AM CDT Inhaled Oxygen Concentration - - Weight 97.7 kg (215 lb 6.4 oz) 08/01/2024 8:19 A M CDT Height - - Body Mass Index 33.81 07/18/2024 9:03 AM CDT documented in this encounter Ordered Prescriptions Prescription Sig Dispense Quantity Refills Last Filled Start Date End Date dexAMETHasone (SEPADRON) 4 mg tablet Take 1 tablet (4 mg total) by mouth daily with breakfast 30 tablet 08/01/2024 documented in this encounter Progress Notes * Shari Quintana, RAIL WASHER - 08/01/2024 9:20 AM CDT Images from the original note were not included. Oncology Progress Note Josafat Calvo 1960 08/01/2024 Stan Meza MD Diagnosis: Poorly differentiated non-small cell lung cancer Stage IV Diagnosed 06/19/24 PD-L1 = quantity not sufficient [facility] [place] Sequencing: quantity not sufficient G360: History of Present Illness: Mr. Calvo is [...] A, chromogranin, and synaptophysin. Patient came to [facility] on 07/18/24 for further management. Interval History: Mr. Calvo is a 63-year-old man with poorly differentiated non-small cell lung cancer. He returns today for follow up and is experiencing significant pain. He rates pain 11/10 in intensity. Pain ismost pronounced in his chest, directly over his sternum. He also reports low back pain. He has beenusing acetaminophen at home with negligible help. Past Medical History: Hypertension Mitral regurgitation Peripheral [...] DAYS (Patient not taking: Reported on 08/01/2024) eplerenone (INSPRA) 25 mg tablet Take 1 tablet (25 mg total) by mouth daily lamoTRIgine (LaMICtal) 100 mg tablet Take 1 tablet (100 mg total) by mouth 2 (two) times a day latanoprost (XALATAN) 0.005 % ophthalmic solution 1 drop nightly losartan (COZAAR) 50 mg tablet Take 1 tablet (50 mg total) by mouth daily mirtazapine (REMERON) 7.5 mg tablet daily nicotine [...] mouth daily with breakfast 30 tablet 0 varenicline tartrate (CHANTIX) 1 mg [...] Exam: Vital Signs: Most Recent : Vitals: 08/01/24 0819 BP: 134/86 BP Location: Left arm Pulse: 90 Resp: 19 Temp: 36.3 ??C (97.4 ??F) TempSrc: Oral SpO2: 98% Weight: 97.7 kg (215 lb 6.4 oz) Constitutional: Patient is well-nourished, [...] guarding. Musculoskeletal: Significant tenderness over the low back. Neurological: Patient alert and oriented to person, place, and time. No cranial nerve deficit. Gaitnormal. Extremities: No edema. Skin: Skin is warm and dry. No rash or erythema Psychiatric: Mood, memory, affect and judgment normal. Laboratory: Lab Results Component Value Date WBC 9.3 08/01/2024 HGB 11.7 (L) 08/01/2024 HCT 35.5 (L) 08/01/2024 MCV 83.5 08/01/2024 LABPLAT 345 08/01/2024 Lab Results Component Value Date NEUTROABS 5.7 08/01/2024 Chemistry Component Value Date/Time SODIUM 133 (L) 08/01/2024 0802 POTASSIUM 3.6 08/01/2024 0802 CHLORIDE 98 08/01/2024 0802 CO2 28 08/01/2024 0802 BUNSER 6 08/01/2024 0802 CREATININE 0.66 (L) 08/01/2024 0802 GLUCOSE 104 08/01/2024 0802 Component Value Date/Time CALCIUM 9.6 08/01/2024 0802 ALKPHOS 125 08/01/2024 0802 AST 18 08/01/2024 0802 ALT 19 08/01/2024 0802 BILITOT 0.4 08/01/2024 0802 Radiology: CT 04/17/24 MRI Brain W WO [...] same day was negative for intracranial metastases. Images were reviewed with the patient, who should be evaluated by Dr. Jeffrey Lagos for palliative radiation. Following radiation, he will start front line systemic treatment, either with carboplatin plus pemetrexed and pembrolizumab or on a clinical trial. In regards to the pain, he will be prescribed daily dexamethasone and oxycodone as needed. Plan: Radiation oncology consult today Oxycodone (5 mg tablets, 1-2 q4 PRN) 4 mg of dexamethasone daily with pantoprazole Consider carboplatin plus pemetrexed and pembrolizumab versus trial following completion of radiation He will call us in the interim for any questions, concerns, or worsening symptoms. He is agreeable with this plan of care. Shari Quintana, MSN, RAIL WASHER-C, AOCNP Nurse Practitioner in collaboration with Dr. Stan Meza Division of Oncology [facility] Cosigned by Stan Meza MD at 08/14/2024 10:33 AM CDT documented in this encounter Plan of Treatment Scheduled Referrals Name Type Priority Associated Diagnoses Order Schedule Ambulatory referral to Radiation Oncology Outpatient Referral Urgent Primary cancer of left lower lobe of lung (HCC) Expected: 08/01/2024 (Approximate), Expires: 08/01/2025 documented as of this encounter Results * TSH (08/15/2024 6:45 AM CDT) [facility] Thyroid Stimulating Hormone 2.36 0.30 - 4.20 mcIUnit/mL Blood 08/15/2024 6:45 AM CDT 08/15/2024 6:56 AM CDT us Stan Meza MD LAB BLOOD ORDERABLES Yolette l Result [facility] Department [place] [address] * (ABNORMAL) Comprehensive metabolic panel (08/15/2024 6:45 AM CDT) [facility] Sodium 133(L) 135 - 145 mmol/L Potassium, pl 4.5 3.3 - 4.9 mmol/L [facility] Chloride 98 97 - 110 mmol/L [facility] CO2 29 22 - 32 mmol/L [facility] Anion gap 6 2 - 15 mmol/L [facility] BUN 8 6 - 25 mg/dL [facility] Creatinine 0.71(L) 0.80 - 1.30 mg/dL [facility] Glucose 98 70 - 199 mg/dL [facility] Comment: Interpretive Data Fasting glucose >/= [...] 2022. Calcium 9.5 8.5 - 10.3 mg/dL [facility] Bilirubin, total 0.4 0.1 - 1.2 mg/dL [facility] Protein, pl 7.1 6.5 - 8.5 g/dL [facility] Albumin 3.4(L) 3.5 - 5.0 g/dL [facility] Alk phos 163(H) 40 - 130 Units/L [facility] ALT 36 7 - 55 Units/L [facility] AST 22 10 - 50 Units/L [facility] Blood 08/15/2024 6:45 AM CDT 08/15/2024 6:56 AM CDT us Stan Meza MD LAB BLOOD ORDERABLES Yolette banda Result [facility] Department [place] [address] * (ABNORMAL) CBC with auto differential (08/15/2024 6:45 AM CDT) WBC 12.7(H) 3.8 - 9.9 K/cumm Comment:Testing performed by : [facility], [address] [place] [phone] Hgb 12.3(L) 13.0 - 17.5 g/dL [facility] Comment:Testing performed by : [facility], [address] [place] [phone] Hct 38.3(L) 38.9 - 50.3 % [facility] Comment:Testing performed by : [facility], [address] [place] [address] Plt 341 150 - 400 K/cumm [facility] Comment:Testing performed by : [facility], [address] [place] [address] MPV 6.6(L) 6.8 - 10.4 fL [facility] Comment:Testing performed by : [facility], [address] [place] [address] RBC 4.55 4.30 - 5.80 M/cumm [facility] Comment:Testing performed by : [facility], [address] [place] [address] MCV 84.1 81.3 - 96.4 fL [facility] Comment:Testing performed by : [facility], [address] [place] [address] MCH 27.1 27.1 - 33.3 pg [facility] Comment:Testing performed by : [facility], [address] [place] [address] MCHC 32.2(L) 32.3 - 35.7 g/dL [facility] Comment:Testing performed by : [facility], [address] [place] [address] RDW CV 13.9 11.1 - 14.9 % [facility] Comment:Testing performed by : [facility], [address] [place] [address] NRBC abs 0.00 0.00 - 0.01 K/cumm [facility] Comment:Testing performed by : [facility], [address] [place] [address] Blood 08/15/2024 6:45 AM CDT 08/15/2024 6:55 AM CDT us Stan Meza MD LAB BLOOD ORDERABLES Yolette banda Result [facility] [place] [address] documented in this encounter Visit Diagnoses Diagnosis Prophylaxis for chemotherapy-induced neutropenia- Primary Primary cancer of left lower lobe of lung (HCC) documented in this encounter Orders Appointment Requests Count Last Ordered Date Fi rst Ordered Date ONCBCN CLINIC APPOINTMENT REQUEST 2 024 08/01/2024 documented in this encounter Care Teams Central Office Installer Relationship Specialty Start Date End Date Matthew Mccabe MD [address] [place] [address] PCP - General Family Medicine 05/13/24 Stan Meza MD [address] [facility], [address] [place] [address] Medical Oncologist/Marzipan [facility] Medical Oncology 06/28/24 documented as of this encounter
--- OUTSIDE RECORDS SUMMARY | 2024-10-30 07:15 | XMS_ITS ---
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 in a fdc, detention, halfway center, or juvenile correctional facility??No,?Are you a refugee??No,?What country are you from[place],?Do you feel physically and emotionally safe where you currently live??Yes,?In the past year, have you been afraid of your partner or ex-partner??No,?PRAPARE Score:?6,?Enabling Services Provided??Yes,?Please specify?Case Management Assessment First Visit.?Tobacco Use:?Tobacco Control (Standard)?Tobacco use:?Nonsmoker.? * Medications:?TakingSenna 8.6 MG Tablet 2 tablets at bedtime as needed Orally Once a day Ondansetron 4 MG Tablet Disintegrating 1 tablet on the tongue and allow to dissolve Orally Once a day LORazepam 0.5 MG Tablet 1 tablet at bedtime as needed Orally Once a day Eliquis 2.5 MG Tablet as directed Orally Betamethasone - Powder as directed oxyCODONE HCl 5 MG Tablet 1 tablet as needed Orally every 6 hrs Morphine Sulfate 30 MG Tablet 1 tablet as needed Orally every 12 hours Atorvastatin Calcium 40 MG Tablet 1 tablet Orally Once a day Alfuzosin HCl 10 MG Tablet Extended Release as directed Orally hydroCHLOROthiazide 25 MG Tablet 1 tablet in the morning Orally Once a day Omeprazole 40 mg Capsule Delayed Release TAKE 1 CAPSULE BY MOUTH DAILY 30 MINUTES BEFORE BREAKFAST Orally Once a day Vitamin D3 50 MCG (2000 UT) Capsule TAKE 1 CAPSULE BY MOUTH EVERY DAY FOR 30 DAYS Spironolactone 50 MG Tablet 1 tablet Orally Once a day hydrOXYzine Pamoate 100 mg Capsule take 1 capsule by mouth Orally once daily take 1 capsule by mouth daily for 1 week then discontinuebusPIRone HCl 10 MG Tablet 1 tablet Orally Twice a day Ziprasidone HCl 80 MG Capsule TAKE 1 CAPSULE BY MOUTH WITH FOOD TWICE A DAY Orally Twice a day lamoTRIgine 100 MG Tablet TAKE 1 TABLET BY MOUTH TWICE A DAY Orally twice a day Taking Senna 8.6 MG Tablet 2 tablets at bedtime as needed Orally Once a day Taking Ondansetron 4 MG Tablet Disintegrating 1 tablet on the tongue and allow to dissolve Orally Once a day Taking LORazepam 0.5 MG Tablet 1 tablet at bedtime as needed Orally Once a day Taking Eliquis 2.5 MG Tablet as directed Orally Taking Betamethasone - Powder as directed Taking oxyCODONE HCl 5 MG Tablet 1 tablet as needed Orally every 6 hrs Taking Morphine Sulfate 30 MG Tablet 1 tablet as needed Orally every 12 hours Taking Atorvastatin Calcium 40 MG Tablet 1 tablet Orally Once a day Taking Alfuzosin HCl 10 MG Tablet Extended Release as directed Orally Taking hydroCHLOROthiazide 25 MG Tablet 1 tablet in the morning Orally Once a day Taking Omeprazole 40 mg Capsule Delayed Release TAKE 1 CAPSULE BY MOUTH DAILY 30 MINUTES BEFORE BREAKFAST Orally Once a day Taking Vitamin D3 50 MCG (2000 UT) Capsule TAKE 1 CAPSULE BY MOUTH EVERY DAY FOR 30 DAYS Taking Spironolactone 50 MG Tablet 1 tablet Orally Once a day Taking hydrOXYzine Pamoate 100 mg Capsule take 1 capsule by mouth Orally once daily take 1 capsule by mouth daily for 1 week then discontinueTaking busPIRone HCl 10 MG Tablet 1 tablet Orally Twice a day Taking Ziprasidone HCl 80 MG Capsule TAKE 1 CAPSULE BY MOUTH WITH FOOD TWICE A DAY Orally Twice a day Taking lamoTRIgine 100 MG Tablet TAKE 1 TABLET BY MOUTH TWICE A DAY Orally twice a day Not-TakingtraMADol HCl 50 MG Tablet 1 tablet as needed Orally every 12 hours Medication List reviewed and reconciled with the patientNot- Taking traMADol HCl 50 MG Tablet 1 tablet as needed Orally every 12 hours Medication List reviewed and reconciled with the patient * Allergies:?LisinoprilPenicil mary ann[Allergies Verified] Objective: * Vitals:? 200 lbs per pt. * Examination: ???Mental Status Exam: ?SENSORIUM AND COGNITION?A&Ox4.?ATTENTION AND CONCENTRATION?No deficits.?APPEARANCE?Phone interview - unable to determine appearance..?ATTITUDE AND BEHAVIOR?Cooperative.?EYE CONTACT?Phone interview.?AFFECT?Congruent with reported mood.?MOOD?Euthymic.?SPEECH QUANTITY?Appropriate.?SPEECH QUALITY?Fluent, Appropriate volume.?THOUGHT PROCESS?Coherent and goal directed.?THOUGHT CONTENT?Appropriate - WNL.?LANGUAGE?Appropriate- WNL.?MOTOR ACTIVITY?Phone interview.?SUICIDAL IDEATION?Denies suicidal ideation.?HOMICIDAL IDEATION?Denies homicidal ideation.?HALLUCINATIONS?Denies hallucinations.?INSIGHT?Fair.?JUDGMENT?Fair.?FUND OF KNOWLEDGE?Fair.?ABILITY TO PARTICIPATE IN TREATMENT?Moderate.?WILLINGNESS TO PARTICIPATE IN TREATMENT?Moderate.?SIGNIFICANT FINDINGS REGARDING MENTAL STATUS?None.?AIMS?Score Zero [0], Smooth full extension of elbows with PROM, Gait smooth and steady.?DEPRESSIVE SYMPTOMS?High.?ELEVATED MOOD SYMPTOMS?Denies,Not noted/observed.?ANXIETY?High.? Assessment: * Assessment: 1.?Anxiety - F41.9???2.?Bipo lar 1 disorder, depressed, moderate - F31.32 (Primary)??? Plan: * Treatment: 2.?Anxiety? Continue hydrOXYzine Pamoate Capsule, 100 mg, take 1 capsule by mouth, Orally, once daily, Refills 0;?Continue busPIRone HCl Tablet, 10 MG, 1 tablet, Orally, Twice a day, 30 days, 60, Refills 0.?? Notes: Continue hydroxyzine. Take as prescribed. Reviewed purpose (reduce anxiety and/or promote sleep), benefits, and risks - including sedation and dry mouth. Call for problems with medication, side effects or need for dosage change. Continue Buspirone. Take as prescribed. Reviewed purpose - decrease anxiety, benefits, and risks - dizziness, headache, nervousness, sedation, excitement, nausea, and restlessness. Call for problems with medication, side effects or need for dosage change.?? 3.?Others? Notes: May self-administer medications or be administered own oral medications per [facility] protocols. Provided informed consent with understanding of side effects, adverse effects, risks and benefits as well as alternative treatments as previously discussed and with the above recommended medications & other aspects of the treatment program. Agrees to return sooner if symptoms worsen or suicidal or homicidal ideations occur. Unable to complete AIMS due to nature of appt, denies any irregular muscle movements; would benefit from an in person appointment. Plan: -Provider called [facility] pharmacy to verify patient was taking medications correctly, they confirmed. No refills needed at this time. [facility] confirmed they will send out refill request when they are due. -Continue Hydroxyzine 100 mg q8hrs PRN (patient continued to take PRN) -Continue Buspirone 10 mg BID -Continue Lamotrigine 100 mg BID -Continue Ziprasidone 80 mg BID -Follow up: 4 weeks [] Hard Rx handed to patient [] Rx phoned into pharmacy [] Rx faxed/e-prescribed into pharmacy [x] PDMP Reviewed [] [facility] Reviewed Encouraged by Radha YOUSSEFHNP-BC to: [] consider utilizing therapist/counselor/social organization professor/psychologist, referral given [x] continue with therapist/counselor/social organization professor/psychologist Psychoeducation: -Treatment options discussed in detail with patient/guardian verbalizing understanding of treatment rationales. -Side effects and benefits of all medications prescribed discussed at length between psychiatric prescribing provider and patient/guardian along with the risks associated of szmf-md-gare interactions, including but not limited to prescription medications, OTC medications, vitamins, minerals and herbal supplements. -Patient/Guardian and provider dialogue showcased verbalized understanding from patient on rationales of medication risk vs benefits. -Information with neurobiology of presenting neurotransmitter disorder, mood stability, sleep hygiene and 7-8 hours of uninterrupted sleep per night with wakeful and refreshed awakening and day long alertness discussed. -Reduction of stress and anxiety to aid in focus and concentration discussed, again, with patient/guardian physically nodding, voicing understanding, and engaged in treatment plan with Radha YOUSSEFHNP-BC. -Perceiving complete understanding of rationale by patient/guardian and willingness to adhere to formulated plan of care by prescriber with patient/guardian buy-in, willingness to participate actively in plan of care and willing to take charge of own care. -Although geared for female patients, all patients/guardians are informed by prescribing provider of risks of medications that could potentially be taken by female/women within their [place] influence and that women who use medicine during have a higher chance of having a baby with defects. -Patient/Guardian denies being and/or knowing of women who are at present and denies wanting to become in the foreseeable future, 0-6 months from now. -Patient/Guardian again informed of the risk of pharmaceutical medications consumed during and how there are potential negative effects on the developing fetus. -Patient/Guardian verbalizes understanding of rationale and physically nods head in agreement that if a should occur, to consult with provider, COMMUNICATION SPEC and/or Nurse Field Sales Associate to determine if prescribed medications should or should not be continued. -Instructions regarding both the medical/pharmacological and non-pharmacologic aspects of the treatments employed were given, and the patient/guardian seemed to understand this. Risks and benefits of treatment, and of non-treatment, were also discussed. The patient/guardian understands the more frequent side effects associated with the medications. -The use of psychotherapy was addressed today and will continue on an as needed basis for the foreseeable future. The choice is, of course, ultimately left to the patient/guardian. -Patient/Guardian was encouraged to make a follow-up appointment for the next visit. -Additional treatment was discussed and has been addressed on an ongoing basis within the context of this patient's illness, resources, progress, and other appropriate factors. Being compliant with a regular exercise routine, consistent medication use, ongoing psychotherapy, eating and sleeping well, as well as the importance of handling stress, was discussed.?? * Procedure Codes:? * Follow Up:?4 Weeks (Reason: 4 week medication f/u) * * D LABORATORY OPERATOR Sign off status: Completed true * Provider:?Radha Joseph , MSN, BURRING MACHINE OPERATOR, PMHNP-BC Date:?10/15/2024 Generated for Printing/Faxing/eTransmitting on:?10/30/2024 07:14 AM FIELD LABORATORY OPERATOR History and Physical Notes * HPI (History of Present Illness) Category Sub-Category Detail Notes Category Not es Depression Screening PHQ-9 Little inte rest or pleasure in doing things: Several days Feeling down, depressed, or hopeless: Mo re than half the days Trouble falling or staying asleep, or sl eeping too much: Nearly every day Feeling tired or having little energy: N early every day Poor appetite or overeating: Several day s Feeling bad about yourself o r that you are a failure, or have let yourself or your family down: Not at all Trouble concentrating on thi ngs, such as reading the newspaper or watching television: Not at all Moving or speaking so slowly that other people could have noticed; or the opposite, being so fidgety or restless that you have been moving around a lot more than usual: Not at all Thoughts that you would be b iman off or of hurting yourself in some way: Not at all Total Score: 10 Interpretation: Moderate Depression Intervention Depression Screening Findings: P ositive Follow-Up for Depression: [facility]ina parr of mental health with treatment, Prescribed psychotropic medications Suicide Risk Assessment Performed: 10/15 Summary Current Mental Health Status / Response to Medications, side effects, efficacy Josafat is a 64 y/o M last seen on 09/24/24. Hydroxyzine was D/C'd (patient is being prescribed Lorazepam from different provider). Buspirone was increased to 10 mg BID. Lamotrigine 100 mg BID and Ziprasidone 80 mg BID w/ food were continued. How do you feel your current medications are working for your mental health? -Patient decided not to discontinue Hydroxyzine 100 mg PRN, will restart medication. No refill needed at this time. -Patient endorses his mood has remained stable, however he has some anxiety related to his health, he has end stage lung cancer and is undergoing chemotherapy. His pain is being managed by his oncologist and cork painter and grader. Do you take regularly as prescribed or miss days? Weekend breaks w/ stimulant? -takes as prescribed Any side effects from medicine? -denies AIMS score (if applicable): body areas: 0=none, 1=minimal, 2=mild, 3=moderate, 4=severe -Face/Oral: 0 -Extremities (arms/legs): 0 -Trunk (neck/shoulder/hips): 0 Changes to physical health, doctor visit, ER, abnormal labs, new medical condition, new medication since last visit? -denies -Patient is undergoing chemotherapy tx for lung cancer. Are you seeing a therapist? -Courtney at [facility] Review of Psychiatric Systems Sleep: Average hours of sleep per night: -7 Difficulties falling asleep or staying asleep? -both, patient has lung cancer and chronic pain from it. Being managed by his oncologist. Sleeping too much/not needing usual amount of sleep? -denies Appetite/Weight: -200 lbs -appetite is poor, patient is undergoing chemotherapy. discussed restarting mirtazapine to help increase appetite but patient denied at this time. Energy level? Normal? Tired often throughout day: -low, patient is undergoing chemotherapy for lung cancer Focus: - it's okay Motivation: -low Physical activity: -denies, unable to work out d/t active lung cancer Substance use: -denies Patient rates anxiety as a (0-10): -high -rated high at last visit Panic Attacks: -denies Paranoia: -denies AH/VH: -denies Patient rates depression as a (0-10): -denies -rated high at last visit Suicidal thoughts/plan or homicidal thoughts: -denies Any thought of self-harm or actual self-harm (like scratching self, cutting) since last visit -denies Any other questions or concerns you would like to discuss today? -denies Examination Category Sub-Category Detail Notes Category Not es Mental Status Exam SENSORIUM AND COGNITION A&Ox4 ATTENTION AND CONCENTRATION No deficits APPEARANCE Phone interview - un able to determine appearance. ATTITUDE AND BEHAVIOR Cooperative EYE CONTACT Phone interview AFFECT Congruent with repor winston mood MOOD Euthymic SPEECH QUANTITY Appropriate SPEECH QUALITY Fluent, Appropriate volume THOUGHT PROCESS Coherent and goal di rected THOUGHT CONTENT Appropriate - WNL MOTOR ACTIVITY Phone interview SUICIDAL IDEATION Denies suicidal idea tion HOMICIDAL IDEATION Denies homicidal michelle ation HALLUCINATIONS Denies hallucination s INSIGHT Fair JUDGMENT Fair FUND OF KNOWLEDGE Fair ABILITY TO PARTICIPATE IN TREATMENT Mode rate WILLINGNESS TO PARTICIPATE IN TREATMENT Moderate SIGNIFICANT FINDINGS REGARDI NG MENTAL STATUS None LANGUAGE Appropriate- WNL AIMS Score Zero [0], Smoo th full extension of elbows with PROM, Gait smooth and steady DEPRESSIVE SYMPTOMS High ELEVATED MOOD SYMPTOMS Denies, Not noted /observed ANXIETY High
--- OUTSIDE RECORDS SUMMARY | 2024-10-30 07:15 | XMS_ITS ---
Author Organization [facility] Address [address] [place] [address] Care Team Providers Care Compliance Consultant Name Role Phone Radha Joseph Primary Care Provider [phone] Medications Medication SIG (Take, Route, Frequency, Duration) Notes Start Date End Date Status hydrOXYzine Pamoate 100 mg take 1 capsule by mouth Orally once daily for 7 days take 1 capsule by mouth daily for 1 week then discontinue Active busPIRone HCl 10 MG 1 tablet Orally Twic e a day for 30 days Active Ziprasidone HCl 80 MG TAKE 1 CAPSULE BY MOUTH WITH FOOD TWICE A DAY Orally Twice a day for 30 days Active lamoTRIgine 100 MG TAKE 1 TABLET BY GERMÁN TH TWICE A DAY Orally twice a day for 30 days Active Social History Sex Assigned At : Social History Observation Description Sex Assigned At Male Encounters Encounter Location Date Provider Diagnosis [facility] [address] [place] [address] 09/24/2024 Radha Joseph Anxiety F41.9 and Bipolar 1 disorder, depressed, moderate F31.32 Assessments Encounter Date Diagnosis (ICD Code) Assessment Notes Treatment Notes Treatment Clinical Notes Section Notes 09/24/2024 Anxiety (ICD-10 - F41.9) 09/24/2024 Bipolar 1 disorder, depressed, moderate (ICD-10 - F31.32) Plan Of Treatment Medication Medication Name Sig Start Date Stop Date Notes hydrOXYzine Pamoate 100 mg take 1 capsul e by mouth Orally once daily for 7 days busPIRone HCl 10 MG 1 tablet Orally Twic e a day for 30 days Ziprasidone HCl 80 MG TAKE 1 CAPSULE BY MOUTH WITH FOOD TWICE A DAY Orally Twice a day for 30 days lamoTRIgine 100 MG TAKE 1 TABLET BY GERMÁN TH TWICE A DAY Orally twice a day for 30 days Progress Notes * Josafat CALVO FDOB: 1 (63 yo M)Acc No.[id number]:09/24/2024 Patient:?Josafat CALVO :1960???Age:63 Y???Sex:Male Address:[address] [place] [address], [address], [address] * Refills? Wean hydrOXYzine Pamoate Capsule, 100 mg, Orally, 7, take 1 capsule by mouth, once daily, 7 days, Refills=0 Increase busPIRone HCl Tablet, 10 MG, Orally, 60, 1 tablet, Twice a day, 30 days, Refills=0 Refill Ziprasidone HCl Capsule, 80 MG, Orally, 60, TAKE 1 CAPSULE BY MOUTH WITH FOOD TWICE A DAY, Twice a day, 30 days, Refills=0 Refill lamoTRIgine Tablet, 100 MG, Orally, 60, TAKE 1 TABLET BY MOUTH TWICE A DAY, twice a day, 30 days, Refills=0 * true * Date:? Generated for Liudmila gray/Katey/Rositaitting on:?10/30/2024 07:15 AM CANCER REGISTRAR
--- OUTSIDE RECORDS SUMMARY | 2024-10-30 07:15 | XMS_ITS ---
Author Organization [facility] Address [address] [place] [address] Care Team Providers Care Needle Punch Operator Name Role Phone Radha Joseph Primary Care Provider REASON FOR VISIT Mirtazepine Social History Sex Assigned At : Social History Observation Description Sex Assigned At Male Encounters Encounter Location Date Provider Diagnosis [facility] [address] [place] [address] 10/15/2024 Radha Joseph Plan Of Treatment No Information Progress Notes * Josafat CALVO FDOB: (64 yo M)Acc No.[id number]:10/15/2024 Patient:?Josafat CALVO :1960???Age:64 Y???Sex:Male Address:[address] [facility] [facility], [address], [place], [address] * true * Date:? Generated for Printi ng/Fapawang/eTransmitting on:?10/30/2024 07:14 AM AUTOMOBILE PARKER
--- OUTSIDE RECORDS SUMMARY | 2024-10-30 07:16 | XMS_ITS | Continuity of Care Document ---
Author Organization [facility] Address [address] [place] [address] Phone Care Team Providers Care Hide Inspector Name Role Phone Unavailable Unavailable Unavailable Medications Medication Instructions Dosage Effective Dates (start - stop) Status Comments Prevacid 30 mg Cap PREVACID [address] # 30<><> 1 TAB by mouth [...] VST EST PT LOW TO MOD SEVERITY [facility] , [address], [place], [place], [address], tel:[phone] Alf OTHER SPECFD COUNSELING 8 No Information [facility] , [address], [place], [place], [address], tel:[phone] [facility] No Information 8 No Information OFFICE CONSULT, 15 MIN, 3 RODRIGUEZ COMPS: PROB FOCUS HX; PROB FOCUS EXAM; [facility] , [address], [place], [place], [address], tel:[phone] [facility] COUNSELING NOS 8 No Information HOME VST EST PT LOW TO MOD SEVERITY [facility] , [address], [place], [place], [address], [place] tel:[phone] Alf OTHER SPECFD COUNSELING 8 No Information HOME VST NEW PT HI SEVERITY [facility] , [address], [place], [place], [address], [place] tel:[phone] Alf DRUG ABUSE NEC-UNSPECDEPRES SIVE DISORDER NECHYPERTENSION NOS No Information [address] [facility] , [address], [place], [place], [address], [place] tel:[phone] [facility] DENTAL EXAMINATION No Information Family History Family Member Type [...]
== END 2024-10-23 16:50 | disposition home or self-care (01) ==
PROVIDERS: Emergency Provider Emergency Medicine; PCP Family Medicine Adolescent Medicine
DX: R11.10 Vomiting, unspecified (principal); Z20.822 Contact with and (suspected) exposure to COVID-19; C34.90 Malignant neoplasm of unspecified part of unspecified bronchus or lung; J44.9 Chronic obstructive pulmonary disease, unspecified; I10 Essential (primary) hypertension; I42.9 Cardiomyopathy, unspecified; E78.5 Hyperlipidemia, unspecified; M19.90 Unspecified osteoarthritis, unspecified site; H40.9 Unspecified glaucoma; F17.210 Nicotine dependence, cigarettes, uncomplicated; Z96.651 Presence of right artificial knee joint; Z92.3 Personal history of irradiation; Z79.899 Other long term (current) drug therapy; Z79.60 Long term (current) use of unspecified immunomodulators and immunosuppressants; N28.1 Cyst of kidney, acquired
CPT/HCPCS: 36415; 71046; 71260; 74177; 80053; 83690; 84484; 85025; 85610; 85730; 87637; 93005; 96374; 96375; 99284; A9270; J1171; Q9967

== ENCOUNTER 2024-12-04 05:11 | Emergency (ER) | payer OTHER, SELFPAY ==
--- NOTE | ~2024-12-04 | XR_ITS ---
Clinical Indication: Shortness of breath PA and lateral views of the chest: Comparison: 10/23/2024 Findings: Stable linear left upper lobe scarring present. There is probable discoid left basilar atel ectasis or scarring. Right lung clear.. Cardiomediastinal silhouette is within normal limits. Bones and soft tissues are unremarkable. Impression: Areas of scarring and/or atelectasis in the left lung, as above. No other definite acute pulmonary pa thology. Reviewed, dictated and finalized at location . [employer] Impression: Areas of scarring and/or atelectasis in the left lung, as above. No other defin ite acute pulmonary pathology.
[2024-12-04 05:14] VITALS: BP 128/98; PULSE 90; RESP 18; TEMP 36.9; O2SAT 97
--- NOTE | 2024-12-04 05:25 | ECG_ITS ---
Test Date: 2024-12-04 05:29:58 Measurements Intervals [place] Rate: 84 P: 33 OH: 150 QRS: 6 QRSD: 100 T: 72 QT: 393 QTc: 466 Interpretive Statements SINUS RHYTHM EARLY PRECORDIAL R/S TRANSITION BORDERLINE ECG Compared to ECG 10/23/2024 13:05:14 NO SIGNIFICANT CHANGE Electronically Signed On 12-04-2024 07:03:13 SCREEN PRINTING PASTER by Ian Lopez D.O.
--- NOTE | 2024-12-04 05:53 | PC.NURSE ---
Pt refued gown
[2024-12-04 06:08] LABS: Basophils Absolute Auto 0.1 K/mm3 (0.0-0.1); Basophils Percent Auto 1.2 % (0.2-1.2); Eosinophils Absolute Auto 0.5 K/mm3 (0-0.3); Eosinophils Percent Auto 11.3 % (0-4.4); Hematocrit 29.6 % (42.0-52.0); Hemoglobin 9.5 g/dL (14.0-18.0); Immature Granulocyte Absolute 0.01 K/mm3 (0.00-0.031); Immature Granulocyte Percent A 0.2 % (0-0.5); Immature Platelet Fraction Pct 2.1 % (0.9-11.2); Lymphocytes Percent Auto 12.3 % (18.3-44.2); Mean Corpuscular HGB Conc 32.1 g/dl (32-36); Mean Corpuscular Hemoglobin 28.8 pg (26-34); Mean Corpuscular Volume 89.7 fl (80-100); Mean Platelet Volume 9.1 fl (7.4-10.4); Monocytes Absolute Auto 0.5 K/mm3 (0.1-0.6); Neutrophils Absolute Auto 2.6 K/mm3 (1.3-6.7); Platelet Count Result 107 k/mm3 (150-375); Red Cell Distribution Width 18.5 % (11.5-14.5); White Blood Count 4.1 K/mm3 (4.5-10.0)
[2024-12-04 06:17] LABS: Alanine Aminotransferase 12 U/L (6-50); Albumin Level 3.7 g/dL (3.5-5.1); Alkaline Phosphatase 121 U/L (38-126); Anion Gap 8 mmol/L (4-12); Aspartate Amino Transferase 15 U/L (17-59); Bilirubin,Total 0.5 mg/dL (0.2-1.3); Blood Urea Nitrogen 5 mg/dL (9-20); Calcium 9.4 mg/dL (8.4-10.2); Carbon Dioxide 26 mmol/L (22-30); Chloride 99 mmol/L (98-107); Estimated CRCL calculation 114 ml/min; Estimated Glomerular Filt Rate > 60; Glucose 101 mg/dL (65-110); Sodium 133 mmol/L (137-145)
[2024-12-04 06:20] LABS: INR 1.3; Prothrombin Time 16.2 Seconds (11.1-14.7)
[2024-12-04 06:21] LABS: Partial Thromboplastin Time 33.1 Seconds (22.3-36.8)
[2024-12-04 06:29] LABS: NT Pro B Type Natriuretic Pept 93 pg/mL (19.9-100); Troponin I < 0.012 ng/mL (0.000-0.034)
[2024-12-04 06:30] VITALS: O2SAT 97
[2024-12-04 06:38] VITALS: BP 156/138; PULSE 95; RESP 20; O2SAT 97
--- OUTSIDE RECORDS SUMMARY | 2024-12-04 07:22 | XMS_ITS | Encounter Summary ---
Author Organization [facility] Address [address] [place] [address] Care Team Providers Care Dance Coach Name Role Phone Ian Pollock MD Primary Care Provider [phone] Katina Casiano DO Unavailable [phone] Xavi ACOSTA MD, Jameel Gaviria Primary Care Provider + Katina Casiano DO Unavailable [phone] Tracey Ang PA Unavailable [phone] Belkis Angel CESSPOOL CLEANER-OCEANOLOGIST Primary Care Provider + Natalie Baum Primary Care Provider [phone] Reason for Visit * Reason Onset Date Comments Letter 12/02/2020 Encounter Details Date Type Department Care Team (Late st Contact Info) Description 12/02/2020 Telephone [facility], Critical Care [facility] Sleep Medicine [address] [place] [address] Agnieszka Haas MD [address] [place] [address] Letter Social History Tobacco Use Types Packs/Day [...] COVID-19? Unable to assess 11/18/2020 1:41 PM RN HEMATOLOGY documented as of this encounter Functional Status [...] vaccine sooner Thanks. Patient Call Back number: [phone] HEMATOLOGY documented in this encounter Plan of Treatment [...] on filedocumented in this encounter Care Teams Dance Coach Relationship Specialty Start Date End Date Ian Pollock MD [address] [place] [address] PCP - General 08/21/20 05/29/23 Jameel Hurley III, MD [address] [place] [address] PCP - General Internal Medicine 06/05/23 08/28/23 Belkis Angel APRN-OCEANOLOGIST [address] [place] [address] PCP - General Nurse Practitioner 08/29/23 05/05/24 Natalie Baum [address] [place] [address] PCP - General 05/06/24 Katina Casiano DO [address] DIV OF GEN INTERNAL MEDICINE [place], [place] Resident - PCP Internal Medicine 08/10/22 05/29/23 Katina Casiano DO [address] [facility] [address] DIV OF GEN INTERNAL MEDICINE [place], [place] Hospitalist 06/05/23 Tracey Ang PA [address] [facility] [address] [place] [address] Physician World Geography Teacher 08/15/23 documented as of this encounter
--- OUTSIDE RECORDS SUMMARY | 2024-12-04 07:22 | XMS_ITS | Encounter Summary ---
Author Organization [facility] Address [address] [place] [address] Care Team Providers Care Bundle Tier Name Role Phone Ian Pollock MD Primary Care Provider Katina Casiano DO Unavailable [phone] Xavi ACOSTA MD, Jameel R Primary Care Provider + Katina Casiano DO Unavailable [phone] Tracey Ang PA Unavailable [phone] Belkis Angel SANDBLAST OR SHOTBLAST EQUIPMENT TENDER-LEADITE MAN Primary Care Provider + Natalie Baum Primary Care Provider [phone] Reason for Visit * Reason Onset Date Comments Refill Request 04/13/2021 Encounter Details Date Type Department Care Team (Late st Contact Info) Description 04/13/2021 Telephone [facility] [address] [place] [address] Ian Pollock MD [address] [place] [address] Refill Request Social History Tobacco [...] Miscellaneous Notes * Telephone Encounter - Nicole iSfuentes - 04/19/2021 4:38 PM CDT Patient has [...] to be refilled. Patient Call Back number: [phone] documented in this encounter Plan of Treatment [...] sciatica documented in this encounter Care Teams Bundle Tier Relationship Specialty Start Date End Date Ian Pollock MD [address] [facility] OF [facility] [place] [address] PCP - General 08/21/20 05/29/23 Jameel Hurley III, MD [address] [facility] [place] [id number] PCP - General Internal Medicine 06/05/23 08/28/23 Belkis Angel APRN-LEADITE MAN [address] [facility] 2nd [place] [id number] PCP - General Nurse Practitioner 08/29/23 05/05/24 Natalie Baum [address] [place] [address] PCP - General 05/06/24 Katina Casiano DO [address] [facility] INTERNAL [place], [place] Resident - PCP Internal Medicine 08/10/22 05/29/23 Katina Casiano DO [address] [facility] INTERNAL [place], [place] Hospitalist 06/05/23 Tracey Ang PA [address] [place] [address] Physician Business Services Officer 08/15/23 documented as of this encounter
--- OUTSIDE RECORDS SUMMARY | 2024-12-04 07:22 | XMS_ITS | Encounter Summary ---
Author Organization [facility] Address [address] [place] [address] Care Team Providers Care Funeral Home Associate Name Role Phone Ian Pollock MD Primary Care Provider [phone] Katina Casiano DO Unavailable [phone] Xavi ACOSTA MD, Jameel Gaviria Primary Care Provider + Katina Casiano DO Unavailable [phone] Tracey Ang PA Unavailable [phone] Belkis Angel TEST DEPARTMENT HELPER-ENTERPRISE ARCHITECT Primary Care Provider + Natalie Baum Primary Care Provider [phone] Encounter Details Date Type Department Care Team (Late st Contact Info) Description 04/22/2021 Telephone [facility] [address] [place] [address] Kezia Hollis MD [address] OF PULMONARY[facility] [address] Social History Tobacco Use Types [...] stay with Dr. Hollis? Call Back #: [phone] documented in this encounter Plan of Treatment [...] filedocumented in this encounter Care Teams Funeral Home Associate Relationship Specialty Start Date End Date Ian Pollock MD [address] [facility] OF [facility] [place] [address] PCP - General 08/21/20 05/29/23 Jameel Hurley III, MD [address] [facility] [place] [address] PCP - General Internal Medicine 06/05/23 08/28/23 Belkis Angel APRN-ENTERPRISE ARCHITECT [address]nd [place] [address] PCP - General Nurse Practitioner 08/29/23 05/05/24 Natalie Baum [address] [place] [address] PCP - General 05/06/24 Katina Casiano DO [address] [facility] [address] DIV OF GEN INTERNAL MEDICINE [place], [place] Resident - PCP Internal Medicine 08/10/22 05/29/23 Katina Casiano DO [address] [facility] [address] DIV OF GEN INTERNAL MEDICINE [place], [place] Hospitalist 06/05/23 Tracey Ang PA [address] [facility] [address] [place] [address] Physician Hand Tapper 08/15/23 documented as of this encounter
--- OUTSIDE RECORDS SUMMARY | 2024-12-04 07:23 | XMS_ITS | Clinical Summary ---
Author Organization [facility] Address [address] [place] [address] Phone Care Team Providers Care Property Adjuster Name Role Phone SADIE JACK MD Unavailable [...] On 0 10:36AM By PAUL NUNEZ ; [facility] Gabapentin 600 MG Oral Tablet 05/26/2020 Provider: PAUL MAJANO Diagnosis: Radiculopathy, l umbar region TAKE 1 TABLET BY MOUTH THREE TIMES DAILY. Last Documented On 0 2:54PM By PAUL NUNEZ ; [facility] Triamcinolone Acetonide 0.1% External Cream 10/07/2019 Provider: Diagnosis: Last Documented On 9 11:28AM By Faye MEJÍA ; [facility] Spironolactone 50 MG Oral Tablet 10/07/2019 Provider : Diagnosis: Last Documented On 9 11:27AM By Faye MEJÍA ; [facility] Omeprazole 40 MG Oral Capsule Delayed Release 10/07/20 19 Provider: Diagnosis: Last Documented On 9 11:27AM By Faye MEJÍA ; [facility] Ibuprofen 600 MG Oral Tablet 10/07/2019 Provider: Diagnosis: Last Documented On 9 11:27AM By Faye MEJÍA ; [facility] hydrOXYzine Pamoate 50 MG Oral Capsule 10/07/2019 Pr ovider: Diagnosis: Last Documented On 9 11:26AM By Faye MEJÍA ; [facility] Carvedilol 25 MG Oral Tablet 10/07/2019 Provider: Diagnosis: Last Documented On 9 11:26AM By Faye MEJÍA ; [facility] Medications Administered Includes: Administered Medications from this [...] Active Last Documented On 0 8:29AM ; [facility] Lisinopril Allergy 10/07/2019 Active Last Documented On 0 8:29AM ; [facility] Encounters Encounter Provider Location Date Check-In Time Check-Out Time Diagnosis NO SHOW PAUL DAVIS- 06/30/2020 8:28AM 11:59PM Insurance Includes: Active Insurance Policies Plan Name Member ID Group # Subscriber Relationship Effect jeannine Dates 1 - [facility] [id number] RYLEE GRAY Self Clinical Notes Includes: Clinical Notes from this encounter No Clinical Notes Recorded
--- OUTSIDE RECORDS SUMMARY | 2024-12-04 07:23 | XMS_ITS | Encounter Summary ---
Author Organization [facility] Address [facility] [place] [address] Care Team Providers Care Committee Member Name Role Phone Amilcar Osorio MD Primary Care Provider [phone] Monica Tellez NP Primary Care Provider [phone] Encounter Details Date Type Department Care Team (Late st Contact Info) Description 04/09/2018 Hosp Visit [facility] Outpatient Therapy [place], [place] [address] Grecia Hess, [place] [address] Social History Tobacco Use Types Packs/Day Years [...] on filedocumented in this encounter Care Teams Committee Member Relationship Specialty Start Date End Date Amilcar Osorio MD [address] [facility] [address] [place] [address] PCP - General 05/01/17 09/04/19 Monica Tellez NP [address] [place] [address] PCP - General NURSE PRACTITIONER 09/05/19 documented as of this encounter
--- OUTSIDE RECORDS SUMMARY | 2024-12-04 07:23 | XMS_ITS | Clinical Summary ---
Author Organization [facility] Address [address] [place] [address] Phone Care Team Providers Care Field Marketing Coordinator Name Role Phone SADIE JACK MD Unavailable [...] On 0 10:36AM By PAUL DAVIS-ANAYA ; [facility] Gabapentin 600 MG Oral Tablet 05/26/2020 Provider: PAUL MAJANO Diagnosis: Radiculopathy, l umbar region TAKE 1 TABLET BY MOUTH THREE TIMES DAILY. Last Documented On 0 2:54PM By PAUL NUNEZ ; [facility] Triamcinolone Acetonide 0.1% External Cream 10/07/2019 Provider: Diagnosis: Last Documented On 9 11:28AM By Faye MEJÍA ; [facility] Spironolactone 50 MG Oral Tablet 10/07/2019 Provider : Diagnosis: Last Documented On 9 11:27AM By Faye MEJÍA ; [facility] Omeprazole 40 MG Oral Capsule Delayed Release 10/07/20 Provider: Diagnosis: Last Documented On 9 11:27AM By Faye MEJÍA ; [facility] Ibuprofen 600 MG Oral Tablet 10/07/2019 Provider: Diagnosis: Last Documented On 9 11:27AM By Faye MEJÍA ; [facility] hydrOXYzine Pamoate 50 MG Oral Capsule 10/07/2019 Pr ovider: Diagnosis: Last Documented On 9 11:26AM By Faye MEJÍA ; [facility] Carvedilol 25 MG Oral Tablet 10/07/2019 Provider: Diagnosis: Last Documented On 9 11:26AM By Faye MEJÍA ; [facility] Medications Administered Includes: Administered Medications from this encounter No Administered Medications Recorded Results Includes: Results discussed during this encounter No Results Recorded For Specified Dates History of Present Illness Includes: History of Present Illness from this encounter No History of Present Illness Recorded Social History Description Last Updated Smoker 04/29/2020 Last Documented On 0 3:51PM ; [facility] Smoking status : Current everyday smoker 10/07/2019 Last Documented On 0 3:51PM ; [facility] Medical History Includes: Medical History addressed [...] Active Last Documented On 0 8:29AM ; [facility] Lisinopril Allergy 10/07/2019 Active Last Documented On 0 8:29AM ; [facility] Encounters Encounter Provider Location Date Check-In Time Check-Out Time Diagnosis RX ISSUE/REFILL PAUL DAVIS-ANAYA 06/23/2020 3:51PM 11:59PM Insurance Includes: Active Insurance Policies Plan Name Member ID Group # Subscriber Relationship Effect jeannine Dates 1 - [facility] [id number] RYLEE GRAY Self Clinical Notes Includes: Clinical Notes from this encounter No Clinical Notes Recorded
--- OUTSIDE RECORDS SUMMARY | 2024-12-04 07:23 | XMS_ITS | Encounter Summary ---
Author Organization [facility] Address [address] [place] [address] Care Team Providers Care Senior System Operator Name Role Phone Matthew Mccabe MD Primary Care Prov ider Stan Meza MD Unavailable [phone] Encounter Details Date Type Department Care Team (Late st Contact Info) Description 08/20/2024 Documentation [facility] [address] [place] [address] Social History Tobacco Use [...] on file Legal Sex Male 6:04 PM DROP WIRE ALINER Gender Identity Not on file Sexual Orientation Not on file documented as of this encounter Plan of Treatment Not on file documented as of this encounter Visit Diagnoses Not on filedocumented in this encounter Additional Health Concerns Infection Onset Date Last Indicated Resolved Time COVID: Suspected 08/29/2024 08/29/2024 08/29/2024 1:59 PM CDT documented as of this encounter Care Teams Senior System Operator Relationship Specialty Start Date End Date Matthew Mccabe MD [address] [place] [address] PCP - General Family Medicine 05/13/24 Stan Meza MD [address] [facility] ONCOLOGY, [address] [place] [address] Medical Oncologist/Technical Service Representative Medical Oncology 06/28/24 documented as of this encounter
--- OUTSIDE RECORDS SUMMARY | 2024-12-04 07:23 | XMS_ITS | Encounter Summary ---
Author Organization [facility] Address [address] [facility] [place] [place] [address] Care Team Providers Care Rouge Mixer Name Role Phone aIn Pollock MD Primary Care Provider [phone] Ian Pollock MD Primary Care Provider [phone] Ian Pollock MD Primary Care Provider [phone] Ian Pollock MD Primary Care Provider [phone] Katina Casiano DO Unavailable [phone] Xavi ACOSTA MD, Jameel R Primary Care Provider + Katina Casiano DO Unavailable Tracey Ang PA Unavailable [phone] Belkis Angel DOUBLE HEAD MACHINE OPERATOR-RENT AND HOUSING INVESTIGATOR Primary Care Provider + Natalie Baum Primary Care Provider [phone] Reason for Visit * Reason Onset Date Comments MEDICATION REFILL 05/05/2020 Encounter Details Date Type Department Care Team (Late st Contact Info) Description 05/05/2020 Refill [facility] [address] [place] [address] Agnieszka Haas MD [address] [place] [address] MEDICATION REFILL Social History Tobacco Use Types [...] on filedocumented in this encounter Care Teams Rouge Mixer Relationship Specialty Start Date End Date Ian Pollock MD PCP - General 12/13/19 05/25/20 Ian Pollock MD PCP - General 05/26/20 06/15/20 Ian Pollock MD [address] DIV OF [facility] [place] [address] PCP - General 07/31/20 08/20/20 Ian Pollock MD [address] DIV OF [facility] [place] [address] PCP - General 08/21/20 05/29/23 Jameel Hurley III, MD [address] OF [facility] [place] [place] [address] PCP - General Internal Medicine 06/05/23 08/28/23 Belkis Angel, DOUBLE HEAD MACHINE OPERATOR-RENT AND HOUSING INVESTIGATOR [address] [facility] 2nd [place] [address] PCP - General Nurse Practitioner 08/29/23 05/05/24 Natalie Baum [address] [place] [address] PCP - General 05/06/24 Katina Casiano DO [address] DIV OF [facility] INTERNAL MEDICINE [place], [place] Resident - PCP Internal Medicine 08/10/22 05/29/23 Katina Casiano DO [address] DIV OF [facility] INTERNAL MEDICINE [place], [place] Hospitalist 06/05/23 Tracey Ang PA [address] [facility] [address] [place] [address] Physician Safety Engineer 08/15/23 documented as of this encounter
--- OUTSIDE RECORDS SUMMARY | 2024-12-04 07:23 | XMS_ITS | Encounter Summary ---
Author Organization [facility] Address [facility] [place] [address] Care Team Providers Care Client Support Manager Name Role Phone Amilcar Osorio MD Primary Care Provider [phone] Monica Tellez NP Primary Care Provider [phone] Encounter Details Date Type Department Care Team (Late st Contact Info) Description 04/09/2018 Hosp Visit [facility] Outpatient Therapy [address] [place], [place] [address] Grecia Hess, [place] [address] Social History Tobacco Use Types Packs/Day Years [...] on filedocumented in this encounter Care Teams Client Support Manager Relationship Specialty Start Date End Date Amilcar Osorio MD [address] [facility] [address] [place] [address] PCP - General 05/01/17 09/04/19 Monica Tellez NP [address] [place] [address] PCP - General NURSE PRACTITIONER 09/05/19 documented as of this encounter
--- OUTSIDE RECORDS SUMMARY | 2024-12-04 07:23 | XMS_ITS | Encounter Summary ---
Author Organization [facility] Address [facility] [place] [address] Care Team Providers Care Egg Packer Name Role Phone Amilcar Osorio MD Primary Care Provider [phone] Monica Tellez NP Primary Care Provider [phone] Encounter Details Date Type Department Care Team (Late st Contact Info) Description 04/16/2018 Hosp Visit [facility] Outpatient Therapy [place], [place] [address] Grecia Hess, [place] [address] Social History Tobacco Use Types Packs/Day Years [...] on filedocumented in this encounter Care Teams Egg Packer Relationship Specialty Start Date End Date Amilcar Osorio MD [address] [facility] [address] [place] [address] PCP - General 05/01/17 09/04/19 Monica Tellez NP [address] [place] [address] PCP - General NURSE PRACTITIONER 09/05/19 documented as of this encounter
--- OUTSIDE RECORDS SUMMARY | 2024-12-04 07:23 | XMS_ITS | Referral Summary ---
Author Organization [facility] Address [address] [place] [address] Care Team Providers Care Nuclear Engineer Name Role Phone Katina Casiano DO Unavailable [phone] Tracey Ang PA Unavailable Natalie Baum Primary Care Provider [phone] Source Comments [facility],non-owned Affiliates and Associated Physician Practices is amultiple site organization consisting of ambulatory clinics and hospital sitesin [place], [place]. This disclosure is being madepursuant to the Care Everywhere program and may not contain all information available regarding this patient. Last updated 18.[facility] Encounters Date Type Department Care Team Description 12/02/2024 Refill [facility] - Urology [address] [place] [address], [place] [id number] Florence Ojeda, SUPERIOR COURT JUDGE-SCREENER PERFUMER Refill Request from Last 3 Months Allergies Active Allergy [...] capsule 07/10/2021 Active sildenafil (VIAGRA) 100 MG tabletIndication s:Erectile Dysfunction Take 1 (one) tablet by mouth once as needed 1 hour prior to intercourse Reasons: Erectile Dysfunction 10 tablet 4 01/18/2022 Active Additional Information Patient not taking.Reported on 08/02/2023 nicotine polacrilex (NICORETTE) 4 MG gumIndications:N icotine Dependence Take 1 (one) Each by mouth as needed for Smoking Cessation Reasons: Nicotine Addiction 100 Each 3 01/19/2022 Active Additional Information Patient not taking.Reported on 01/29/2024 nicotine polacrilex (COMMIT) 4 MG lozengeIndicatio ns:Nicotine Dependence Take 1 (one) Each by mouth as needed for Smoking Cessation Reasons: Nicotine Addiction 108 lozenge 3 01/19/2022 Active Additional Information Patient not taking.Reported on 01/29/2024 acetaminophen (TYLENOL) 500 MG capsuleIndicatio ns:Pain Take 1 (one) capsule by mouth every 4 hours as needed for Fever or Pain Reasons: Pain Active albuterol (Proventil;Neftaly lyndsey) (2.5 MG/3ML) 0.083% nebulizer solutionIndicati ons:Centrilobula r emphysema (HCC),Asthma-COMPLIANCE ASSISTANT D overlap syndrome (HCC) Inhale 2.5 (two and one-half) mg by mouth every 4 hours as needed for Shortness of Breath 75 mL 6 12/14/2022 Active fluticasone propionate (Flonase) 50 MCG/ACT nasal sprayIndications :Asthma-COPD overlap syndrome (HCC) SHAKE LIQUID AND USE 2 SPRAYS IN EACH NOSTRIL EVERY DAY 16 g 11 12/14/2022 Active loratadine (Claritin) 10 MG tabletIndication s:Seasonal allergic rhinitis, unspecified trigger Take 1 (one) tablet by mouth once daily 90 tablet 4 01/10/2023 Active Additional Information Patient not taking.Reported on 08/02/2023 aspirin (Aspirin Low Dose) 81 MG chew tablet CHEW AND SWALLOW 1 TAB DAILY 90 tablet 3 02/13/2023 Active tiotropium (Spiriva Respimat) 2.5 MCG/ACT inhalerIndicatio ns:Pulmonary emphysema, unspecified emphysema type (HCC),Asthma, unspecified asthma severity, unspecified whether complicated, unspecified whether persistent (HCC) Inhale 2 (two) puffs by mouth once daily 12 g 4 03/14/2023 Active Additional Information Patient not taking.Reported on 01/29/2024 triamcinolone acetonide (Kenalog) 0.1 % cream Apply to affected area 2 times daily 60 g 04/26/2023 Active Additional Information Patient not taking.Reported on 01/29/2024 varenicline (Chantix) 1 MG tabletIndication s:Smoking Cessation Therapy Take 1 (one) tablet by mouth 2 times daily Reasons: Treatment to Stop Smoking 60 tablet 2 05/30/2023 Active Additional Information Patient not taking.Reported on 01/29/2024 tadalafil (Cialis) 20 MG tabletIndication s:Erectile Dysfunction Take 1 (one) tablet by mouth once daily as needed (before sex for a better erection) Reasons: Erectile Dysfunction 10 tablet 1 06/29/2023 Active Additional Information Patient not taking.Reported on 01/29/2024 latanoprost (Xalatan) 0.005 % ophthalmic solution INSTILL ONE DROP INTO BOTH EYES AT NIGHT 06/20/2023 Active ziprasidone (Geodon) 80 MG capsule 07/25/2023 Active Symbicort 160-4.5 MCG/ACT inhalerIndicatio ns:Centrilobular emphysema (HCC),Asthma-COMPLIANCE ASSISTANT D overlap syndrome (HCC) Inhale 2 (two) puffs by mouth once daily 10.2 g 3 08/29/2023 Active albuterol HFA (Proventil; Ventolin; Proair) 108 (90 Base) MCG/ACT inhalerIndicatio ns:Centrilobular emphysema (HCC),Asthma-COMPLIANCE ASSISTANT D overlap syndrome (HCC) Inhale 2 (two) puffs [...] 3 01/29/2024 Active eplerenone (Inspra) 25 MG tabletIndication s:Heart failure with reduced ejection fraction (HCC) Take 1 (one) tablet by mouth once daily 90 tablet 3 01/29/2024 Active hydroCHLOROthiaz michelle (Hydrodiuril) 25 MG tablet Take 1 (one) tablet by mouth once daily 90 tablet 3 01/29/2024 Active omeprazole (PriLOSEC) 40 MG capsuleIndicatio ns:Gastroesophag eal reflux disease without esophagitis Take 1 (one) capsule by mouth daily before breakfast 90 capsule 3 01/29/2024 Active alfuzosin CR 24hr (Uroxatral) 10 MG tablet TAKE 1 TABLET BY MOUTH EVERY DAY 90 tablet 1 12/02/2024 Active alfuzosin CR 24hr (Uroxatral) 10 MG tablet Take 1 (one) tablet by mouth once daily 90 tablet 3 09/18/2023 12/02/19 25 Discontinued Active Problems Problem Noted Date Diagnosed Date Nonrheumatic mitral valve regurgitation 05/30/20 23 Assessment & Plan (05/30/2023 3:05 PM CDT): Clearly mild to moderate and stable. No indication for surgical or mitral clip. patient reassured Sleep apnea 01/04/2023 Assessment & Plan (01/04/2023 2:27 PM CHOIR MEMBER): - sleep study pending Fatigue 01/04/2023 Assessment & Plan (01/04/2023 2:28 PM CHOIR MEMBER): - Check TSH - pending sleep study [...] 07/29/2022 Assessment & Plan (01/04/2023 2:26 PM CHOIR MEMBER): - Due for TDap, Zoster, Covid outside [...] 07/29/2022 Assessment & Plan (01/04/2023 2:19 PM CHOIR MEMBER): - Will try to resend Eplerenone, previously [...] 01/05/2022 Assessment & Plan (01/04/2023 2:26 PM CHOIR MEMBER): - Likely sleep-related, obesity, SHAYNE - Cont. PPI Sleep choking syndrome 01/05/2022 PND (paroxysmal nocturnal dyspnea) 01/05/2022 Bipolar affective disorder 12/24/2021 Back pain 12/24/2021 Family history of other specified conditions Asthma-COPD overlap syndrome 11/11/2021 Assessment & Plan (01/04/2023 2:18 PM CHOIR MEMBER): - Tob cessation Chronic midline low back pain without sciatica 0 11/09/2021 Lumbosacral disc disease 11/09/2021 Foraminal stenosis of lumbar region 11/09/2021 Heart failure with reduced ejection fraction 09/2021 Assessment & Plan (05/30/2023 3:04 PM CDT): HF with EF recovered to normal. Continue current treatment. Assessment & Plan (01/04/2023 2:16 PM CHOIR MEMBER): - See HTN above - Pt not [...] 07/11/2019 Assessment & Plan (01/04/2023 2:15 PM CHOIR MEMBER): - Stable, despite holding spirono due to [...] 11/06/2017 Assessment & Plan (01/04/2023 2:13 PM CHOIR MEMBER): - Encouraged cessation, ready to quit - [...] 01/05/2022 Immunizations Name Administration Dates Next Due MAGGY RADER PRIMARY 18+YR 01/17/2021, INFLUENZA VACCINE 08/13/2020 INFLUENZA VACCINE, QUADR. (A FLURIA, FLUZONE [...] ENDOSCOPY, COLON, SCREENING Routine 12/07/2022 10:04 AM CHOIR MEMBER COMPREHENSIVE METABOLIC PANEL Routine 08/09/2022 1:47 PM CDT Weight loss HEPATITIS C AB W/RFLX TO HCV RNA QN PCR 09/19/2019 9:17 AM CHOIR MEMBER from Last 3 Months or Most Recently Relevant to Health Maintenance Results * ENDOSCOPY, COLON, SCREENING (12/07/2022 10:04 AM CHOIR MEMBER) Report Endoscopy POC Endoscopy Department Report _ [...] Procedure Code(s): ? --- Professional --- ? 67168, Colonoscopy, flexible; with removal of tumor(s), polyp(s), or ? other lesion(s) by snare technique Diagnosis Code(s): ?--- Professional --- ?Z86.010, Personal history of colonic polyps ?K63.5, Polyp of colon ?Z80.0, Family history of malignant neoplasm of ?digestive organs CPT copyright 2019 [employer]. All rights reserved. The codes documented in this report are preliminary and upon remote coders review may be revised to meet current compliance requirements. Tal Mccormick, 12/07/2022 10:49:20 AM Note Initiated On: 12/07/2022 10:04 AM Number of Addenda: 0 ? [facility] ? [address] [place], [place] [id number] [place] [address] PROVATION 12/07/2022 10:0 4 AM CHOIR MEMBER Rae BECKERURE ORDERABLES [facility] JACQUELINE * (ABNORMAL) COMPREHENSIVE METABOLIC PANEL (08/09/2022 1:47 [...] 46 U/L [facility] Comment: Test Performed at: [facility] [address] [place] ??[phone] PRUDENCIO ALDANA DO,MPH Blood BLOOD SPECIMEN / Unknown 08/09/2022 1:47 PM CDT 08/09/2022 1:50 PM CDT Ian Pollock MD LAB - CHEMISTRY JANAE ELIAS Performing Organization Address [facility] Co de Phone Number [facility] [address] [place] [address] * HEPATITIS C AB W/RFLX TO HCV RNA QN PCR (09/19/2019 9:17 AM CHOIR MEMBER) Hepatitis C Antibody NON-REACTI VE NON-REACT FELY [facility] Signal to Cut-Off 0.03 <1.00 [facility] Comment: HCV antibody was non-reactive. There is no laboratory evidence of HCV infection. In most cases, no further action is required. However, if recent HCV exposure is suspected, a test for HCV RNA (test code 45961) is suggested. For additional information please refer to http://education.seniorshelf.com/faq/TKE64n8 (This link is being provided for informational/ educational purposes only.) Test Performed at: [facility] [address] [place] [address] ??[phone] PRUDENCIO ALDANA DO,MPH 09/19/2019 9:17 AM CHOIR MEMBER 09/19/2019 9:21 AM CHOIR MEMBER Monica Tellez SUPERIOR COURT JUDGE-SCREENER PERFUMER LAB - CHEMI STRY ORDERABLES Performing Organization Address [facility] Co de Phone Number [facility] [address] [place] [address] from Last 3 Months or Most Recently Relevant to Health Maintenance Advance Directives Documents on File Type Date Recorded Patient Butadiene Converter Operator Expl anation Adv Directive/Living Will/POA 11/05/2015 12:22 PM * Full Code (Latest Code Status on File) Date Activated Date Inactivated Comments 11/01/2015 9:11 PM 11/05/2015 6:02 AM Care Teams Nuclear Engineer Relationship Specialty Start Date End Date Natalie Baum [address] [place] [address] PCP - General 05/06/24 Katina Casiano DO [address] [facility] [address] DIV OF [facility] INTERNAL MEDICINE [place], [place] Hospitalist 06/05/23 Tracey Ang PA [address] [facility] [address] [place] [address] Physician Medical Director/Head Team Physician 08/15/23
--- OUTSIDE RECORDS SUMMARY | 2024-12-04 07:23 | XMS_ITS | Clinical Summary ---
Author Organization [facility] Address [address] [place] [address] Phone Care Team Providers Care Machine Precision Engraver Name Role Phone SADIE JACK MD Unavailable [...] On 0 10:36AM By PAUL DAVIS-ANAYA ; [facility] Gabapentin 600 MG Oral Tablet 05/26/2020 Provider: PAUL MAJANO Diagnosis: Radiculopathy, l umbar region TAKE 1 TABLET BY MOUTH THREE TIMES DAILY. Last Documented On 0 2:54PM By PAUL NUNEZ ; [facility] Triamcinolone Acetonide 0.1% External Cream 10/07/2019 Provider: Diagnosis: Last Documented On 9 11:28AM By Faye MEJÍA ; [facility] Spironolactone 50 MG Oral Tablet 10/07/2019 Provider : Diagnosis: Last Documented On 9 11:27AM By Faye MEJÍA ; [facility] Omeprazole 40 MG Oral Capsule Delayed Release 10/07/20 Provider: Diagnosis: Last Documented On 9 11:27AM By Faye MEJÍA ; [facility] Ibuprofen 600 MG Oral Tablet 10/07/2019 Provider: Diagnosis: Last Documented On 9 11:27AM By Faye MEJÍA ; [facility] hydrOXYzine Pamoate 50 MG Oral Capsule 10/07/2019 Pr ovider: Diagnosis: Last Documented On 9 11:26AM By Faye MEJÍA ; [facility] Carvedilol 25 MG Oral Tablet 10/07/2019 Provider: Diagnosis: Last Documented On 9 11:26AM By Faye MEJÍA ; [facility] Medications Administered Includes: Administered Medications from this [...] Active Last Documented On 0 8:29AM ; [facility] Lisinopril Allergy 10/07/2019 Active Last Documented On 0 8:29AM ; [facility] Insurance Includes: Active Insurance Policies Plan Name Member ID Group # Subscriber Relationship Effect jeannine Dates - [facility] [id number] RYLEE GRAY Self Clinical Notes Includes: Clinical Notes from this encounter No Clinical Notes Recorded
--- OUTSIDE RECORDS SUMMARY | 2024-12-04 07:23 | XMS_ITS | Clinical Summary ---
Author Organization [facility] Address [facility]ly [facility] [place] [address] Care Team Providers Care Specialist Physicians Name Role Phone Monica Tellez Gavin CONSULTING TECHNICAL MANAGER Primary Care Provider [phone] Allergies Active Allergy Reactions Criticality Noted Date [...] guaiFENesin (MUCINEX D OR) Activ e Umeclidinium [place] (INCRUSE ELLIPTA IN) Active hydrOXYzine 50 MG [...] Comments Blood Pressure 142/92 09/05/2019 11:03 AM POWER DIGGER OPERATOR Pulse 60 09/05/2019 11:03 AM POWER DIGGER OPERATOR Temperature 36.5 ??C (97.7 ??F) 09/05/2019 11:[address] Respiratory Rate - - Oxygen Saturation 97% 09/05/2019 11:03 AM POWER DIGGER OPERATOR Inhaled Oxygen Concentration - - Weight 108 kg (238 lb) 09/05/2019 11:03 AM POWER DIGGER OPERATOR Height 175.3 cm (5' 9 ) 09/05/2019 11:03 AM POWER DIGGER OPERATOR Body Mass Index 35.15 09/05/2019 11:03 AM POWER DIGGER OPERATOR Plan of Treatment Health Maintenance Due Date [...] patient's age to complete this topic Meningococcal B Vaccine Aged Out No l onger eligible based on patient's age to complete this topic Meningococcal Vaccine Aged Out No scotty eugenio eligible based on patient's age to complete this topic RSV Immunizations Under 20 Months Aged Out No longer eligible based on patient's age to complete this topic Insurance MAR LIN Care Teams Specialist Physicians Relationship Specialty Start Date End Date Monica Tellez NP PCP - General NURSE PRACTITIONER 09/05/19
--- OUTSIDE RECORDS SUMMARY | 2024-12-04 07:23 | XMS_ITS | Encounter Summary ---
Author Organization [facility] Address [facility] [place] [address] Care Team Providers Care Greensman Name Role Phone Amilcar Osorio MD Primary Care Provider [phone] Monica Tellez NATURAL RESOURCES SPECIALIST Primary Care Provider [phone] Encounter Details Date Type Department Care Team (Late st Contact Info) Description 07/03/2018 Abstract [facility] Multispecialty Care - [facility] [address] [place] [address] Gina Fleming APNP [address] [facility] [address] [facility] [address] [place] [address] Social History Tobacco Use Types Packs/Day Years [...] on filedocumented in this encounter Care Teams Greensman Relationship Specialty Start Date End Date Amilcar Osorio MD [address] [facility], [facility] [address] [place] [address] PCP - General 05/01/17 09/04/19 Monica Tellez NP [address] [place] [address] PCP - General NURSE PRACTITIONER 09/05/19 documented as of this encounter
--- OUTSIDE RECORDS SUMMARY | 2024-12-04 07:23 | XMS_ITS | Encounter Summary ---
Author Organization [facility] Address [address] [place] [address] Care Team Providers Care Copywriting Intern Name Role Phone Monica Tellez BRICKMASON SUPERVISOR-YARN MAN Primary Care Provi cristobal Ian Pollock MD Primary Care Provider [phone] Ian Pollock MD Primary Care Provider [phone] Ian Pollock MD Primary Care Provider [phone] Ian Pollock MD Primary Care Provider [phone] Ian Pollock MD Primary Care Provider [phone] Katina Casiano DO Unavailable [phone] Xavi ACOSTA MD, Fred R Primary Care Provider + Katina Casiano DO Unavailable [phone] Tracey Ang PA Unavailable [phone] Belkis Angel BRICKMASON SUPERVISOR-YARN MAN Primary Care Provider + Natalie Baum Primary Care Provider [phone] Reason for Visit * Reason Onset Date Comments Forms 07/12/2019 [place] Encounter Details Date Type Department Care Team (Late st Contact Info) Description 07/12/2019 Telephone [facility] [address] [address] Monica Tellez APRN-YARN MAN [address] [place] [id number] Forms ([place]icare transportation) Social History Tobacco Use Types Packs/Day [...] on forms for transportation. Please advise. CB [phone] * Telephone Encounter - Shari Silvestre, RN - 07/12/2019 1:11 PM CDT [facility] transportation form on your shelf. * Telephone Encounter - Hawa Allen - 07/12/2019 9:34 AM CDT Pt calling in to inform office that paperwork is on it's way from [place] concerning Medicare rides so pt can get transportation to and from [facility] appts. CB# [phone] Routed to [facility] Nurse Communication for further review documented in this encounter Plan of Treatment Not on file documented as of this encounter Visit Diagnoses Not on filedocumented in this encounter Care Teams Copywriting Intern Relationship Specialty Start Date End Date Monica Tellez BRICKMASON SUPERVISOR-YARN MAN PCP - General 07/03/19 11/13/19 Ian Pollock MD PCP - General 11/14/19 12/12/19 Ian Pollock MD PCP - General 12/13/19 05/25/20 Ian Pollock MD PCP - General 05/26/20 06/15/20 Ian Pollock MD [address] [facility] DIV OF [facility] [place] [address] PCP - General 07/31/20 08/20/20 Ian Pollock MD [address] DIV OF [facility] [place] [address] PCP - General 08/21/20 05/29/23 Jameel Hurley III, MD [address] DIV OF [facility] [place] [address] PCP - General Internal Medicine 06/05/23 08/28/23 Belkis Angel, BRICKMASON SUPERVISOR-YARN MAN [address] [facility] [address] [place] [address] PCP - General Nurse Practitioner 08/29/23 05/05/24 Natalie Baum [address] [place] [address] PCP - General 05/06/24 Katina Casiano DO [address] [facility] [address] DIV OF GEN INTERNAL MEDICINE [place], [place] Resident - PCP Internal Medicine 08/10/22 05/29/23 Katina Casiano DO [address] [facility] [address] DIV OF GEN INTERNAL MEDICINE [place], [place] Hospitalist 06/05/23 Tracey Ang PA [address] [facility] [address] [place] [address] Physician Nail Cutter 08/15/23 documented as of this encounter
--- OUTSIDE RECORDS SUMMARY | 2024-12-04 07:23 | XMS_ITS | Clinical Summary ---
Author Organization [facility] Address [address] [place] [address] Phone Care Team Providers Care Barrel Line Operator Name Role Phone SADIE JACK MD Unavailable [...] On 0 10:36AM By PAUL DAVIS-ANAYA ; [facility] Gabapentin 600 MG Oral Tablet 05/26/2020 Provider: PAUL MAJANO Diagnosis: Radiculopathy, l umbar region TAKE 1 TABLET BY MOUTH THREE TIMES DAILY. Last Documented On 0 2:54PM By PAUL NUNEZ ; [facility] Triamcinolone Acetonide 0.1% External Cream 10/07/2019 Provider: Diagnosis: Last Documented On 9 11:28AM By Faye MEJÍA ; [facility] Spironolactone 50 MG Oral Tablet 10/07/2019 Provider : Diagnosis: Last Documented On 9 11:27AM By Fyae MEJÍA ; [facility] Omeprazole 40 MG Oral Capsule Delayed Release 10/07/20 Provider: Diagnosis: Last Documented On 9 11:27AM By Faye MEJÍA ; [facility] Ibuprofen 600 MG Oral Tablet 10/07/2019 Provider: Diagnosis: Last Documented On 9 11:27AM By Faye MEJÍA ; [facility] hydrOXYzine Pamoate 50 MG Oral Capsule 10/07/2019 Pr ovider: Diagnosis: Last Documented On 9 11:26AM By Faye MEJÍA ; [facility] Carvedilol 25 MG Oral Tablet 10/07/2019 Provider: Diagnosis: Last Documented On 9 11:26AM By Faye MEJÍA ; [facility] Medications Administered Includes: Administered Medications from [...] Active Last Documented On 0 8:29AM ; [facility] Lisinopril Allergy 10/07/2019 Active Last Documented On 0 8:29AM ; [facility] Insurance Includes: Active Insurance Policies Plan Name Member ID Group # Subscriber Relationship Effect jeannine Dates - [facility] [id number] RYLEE GRAY Self Clinical Notes Includes: Clinical Notes from this encounter No Clinical Notes Recorded
--- OUTSIDE RECORDS SUMMARY | 2024-12-04 07:23 | XMS_ITS | Patient Health Summary ---
Author Organization [facility] Address [address] [place] [address] Care Team Providers Care Machinist Apprentice Wood Name Role Phone Katina Casiano DO Unavailable [phone] Tracey Ang PA Unavailable [phone] Natalie Baum Primary Care Provider [phone] Note from [facility],non-owned Affiliates and Associated Physician Practices is amultiple site organization consisting of ambulatory clinics and hospital sitesin [place], [place], [place] and [place]. This disclosure is being madepursuant to the Care Everywhere program and may not contain all information available regarding this patient. Last updated 18.[facility] Allergies * Lisinopril(Anaphylaxis,Unknown) -High Criticality * Penicillins(Anaphylaxis) [...] once daily 3 refills by 08/28/2024 * albuterol HFA (Proventil; Ventolin; Proair) 108 [...] daily before breakfast 3 refills by 01/28/2025 * alfuzosin CR 24hr (Uroxatral) 10 MG tablet(Started 12/02/2024) TAKE 1 TABLET BY MOUTH EVERY DAY 1 refill by 12/02/2025 Ended Medications* alfuzosin CR 24hr (Uroxatral) 10 MG tablet(Started 09/18/2023)(Discontinued) Take 1 (one) tablet by mouth once daily 3 refills by 09/17/2024 Active Problems Problem Noted Date Diagnosed Date [...] COVID DIOR PRIMARY 18+YR(Given 01/17/2021, 01/05/2021) * INFLUENZA VACCINE(Given 08/13/2020) * INFLUENZA VACCINE, QUADR. (AFLURIA, FLUZONE [...] 08/02/2023) Performed for PAD (peripheral artery disease) (HCC) * ECHO COMPLETE(Performed 05/15/2023) Performed for Mitral [...] for Lower urinary tract symptoms (LUTS) * LA MSR PVR U&/BLADD CAPCTY US NON(Performed 11/18/2022) [...] REHAB(Performed 05/03/2022) * CARDIAC REHAB(Performed 03/23/2022) * LA DRAIN/INJECT LARGE JOINT/BURSA(Performed 03/18/2022) Performed for Greater [...] resultswithin the time period is included. BSA 2.3616497 m2 [facility] CV FUJ I PACS LV [...] LA vol BP 49.935 mL [facility] CV [facility] I PACS LVOT pk dane 0.97 m/s [...] vol BP A-L 53.356 mL [facility] CV FUJI PACS RVIDd 2.8 cm [facility] I PACS RVOT VTI 11.222 cm [facility] I PACS TV S' dane 12.426 cm/s [facility] I PACS TAPSE 1.978 1.7 cm [facility] I PACS RVOT pk dane 0.57 m/s [...] Index 26 ml/m2 [facility] CV FUJI PACS [id number] 7.143 cm [facility] CV FUJ I PACS [id number] 7.525 cm [facility] CV FUJ I PACS [...] normal. Normal systolic function. EF by 2D Mla[place] biplane is 56%. Normal wall motion. Normal [...] parasternal, subcostal and suprasternal views were obtained. Procedure Note Jayleen Lamas MD - 01/29/2024 ? ? Left??Ventricle: Left ventricle size is normal. Normal wall thickness.Ventricular mass is normal. Normal systolic function. EF by 2D Simpsonbiplane is 56%. Normal wall motion. Normal diastolic function. ? ? Tricuspid??Valve: Trace regurgitation. Unable to estimate the pulmonaryartery systolic pressure due to lack of tricuspid regurgitation. ? ? Mitral??Valve: Mild to moderate regurgitation. [facility] * IMAGING RADIOLOGY [...] ORDERA BLES * Complete PFT w/wo Bronchodilator [facility] PFT Lab (03/14/2023 2:36 PM CDT) Impressions Ang Christie MD - 03/14/2023 2:36 PM CDT [facility] DEPARTMENT OF PULMONARY, CRITICAL CARE, AND SLEEP [...] D.O. Pulmonary Disease & Critical Care Fellow [facility] Pager: [phone] I have reviewed the test data and agree with Dr. Butler's interpretations. Ang Christie MD 04/26/2023 Narrative Ang Christie MD - 03/14/2023 2:36 PM CDT Song Butler, DO ? 03/14/2023 ??2:42 PM Procedure Note Song Butler DO - 03/14/2023 2:36 PM CDT Images from the original note were not included. Rhianna Moctezuma MD RESPIRATORY [facility] ORDERABLES * CT CHEST WO CONTRAST (01/31/2023 7:47 AM CDT) Only the most recent of2 resultswithin the time period is included. Anatomical Region Laterality Modality Chest Computed Tomogra phy 01/31/2023 8:3 7 AM CDT Impressions 01/31/2023 11:37 AM CDT [...] Bernard MD. > Dictated by David Bernard (Electronic Repair Troubleshooter) 01/31/2023 11:34 AM IBimal MD have personally reviewed and interpreted this examination/study. > Interpreting Provider: Bimal Lozano MD on 01/31/2023 11:37 AM Narrative 01/31/2023 11:37 AM CDT PROCEDURE: ??CT CHEST WO CONTRAST, DATE/TIME OF EXAM: ??01/31/2023 7:47 AM, LOCATION ??[facility] INDICATION: R91.1: Pulmonary nodule ADDITIONAL CLINICAL INFORMATION: [...] DATE/TIME OF EXAM: 01/31/2023 7:47 AM, LOCATION [facility] INDICATION: R91.1: Pulmonary nodule ADDITIONAL CLINICAL INFORMATION: [...] Bernard MD. > Dictated by David Bernard (Electronic Repair Troubleshooter) 01/31/2023 11:34 AM I, Bimal Lozano MD have personally reviewed and interpreted this examination/study. > Interpreting Provider: Bimal Lozano MD on 01/31/2023 11:37 AM Jeffrey Oliveira MD CT ORDERABLES * PATHOLOGY TISSUE (12/07/2022 10:29 AM CHARGING OPERATOR) Case Report Surgical Pathology Report ? Case: [id number] ? Authorizing Provider: ??Gavin Mccormick, ??Collected: ? 12/07/2022 10:29 AM ? Ordering Location: ? [facility] END[facility] ?Received: ?12/07/2022 12:46 PM ? Pathologist: ? Coral Epps MD ? Specimen: ?Polyp Ascending, ascending colon polyps ? 12/08/2022 1:54 PM [facility] Final Diagnosis Large intestine, ascending colon polyps, biopsy (A): - Tubular adenoma(s), fragmented 12/08/2022 1:54 PM [facility] Microscopic Description and Comment Microscopic examination substantiates the final diagnosis. 12/08/2022 1:54 PM [facility] Clinical History The patient is a 62-year-old man who presents for high risk colon cancer surveillance (personal history of colonic polyps and family history of colon cancer in first-degree relative age <60 years). Operative procedure/findings: Colonoscopy - four 4-6 mm ascending colon polyps, resected and retrieved. 12/08/2022 1:54 PM [facility] Gross Description The requisition and specimen(s) are identified with the patient's name Josafat Calvo. Received in formalin, specimen A , are multiple pink-nolasco tissues, 0.2-0.8 cm in greatest dimension and 2.0 x 0.5 x 0.2 cm in aggregate, submitted in toto in cassette A1. DF 12/08/2022 1:54 PM [facility] Disclaimer The performance characteristics of all immunohistochemical and indirect immunofluorescence stains (if any) cited in this report were determined by the Histopathology Laboratory of [facility]. Some of these tests were developed [...] the attending (teaching) pathologist. 12/08/2022 1:54 PM CHARGING OPERATOR [facility] Embedded Images 12/08/2022 1:54 PM CHARGING OPERATOR [facility] Biopsy, NOS POLYP / Unknown 12/07/2022 1 0:29 AM CHARGING OPERATOR 12/07/2022 12:46 PM CHARGING OPERATOR Comment:Pre-op diagnosis: Dark stools [R19.5] Colon cancer screening [Z12.11] Rae Mccormick MD LAB - PATHOLOGY/CYTOLOGY ORDERABLES [facility] [address] [place] [address], [facility] [phone] * ENDOSCOPY, COLON, SCREENING (12/07/2022 10:04 AM CHARGING OPERATOR) Report Endoscopy POC Endoscopy Department Report _ [...] Procedure Code(s): ? --- Professional --- ? 12392, Colonoscopy, flexible; with removal of tumor(s), polyp(s), or ? other lesion(s) by snare technique Diagnosis Code(s): ?--- Professional --- ?Z86.010, Personal history of colonic polyps ?K63.5, Polyp of colon ?Z80.0, Family history of malignant neoplasm of ?digestive organs CPT copyright 2019 [employer]. All rights reserved. The codes documented in this report are preliminary and upon occasional caregiver review may be revised to meet current compliance requirements. Tal Mccormick, 12/07/2022 10:49:20 AM Note Initiated On: 12/07/2022 10:04 AM Number of Addenda: 0 ? [facility] ? [address] [place] [address] [facility] PROVATION 12/07/2022 10:0 4 AM CHARGING OPERATOR Rae Mccormick MD GI PRO CEDURE ORDERABLES [facility] PROVATION * URINALYSIS AUTO - POINT OF CARE (AMB) [facility] (11/18/2022 9:37 AM CHARGING OPERATOR) Only the most recent of3 resultswithin the time period is included. Glucose UA neg Bilirubin UA POCT neg Ketones UA POCT neg Specific [place] UA 1.015 Blood Urine POCT neg pH UA 6.0 Protein UA neg Urobilinogen UA 0.2 mg/dl Nitrite UA neg WBC UA neg Urine URINE / Unknown 11/18/2022 9 :37 AM CHARGING OPERATOR Florence Ojeda APRN-SKIN FITTER LAB - POINT O F CARE ORDERABLES * LA MSR PVR U&/BLADD CAPCTY US NON (11/18/2022 9:32 AM CHARGING OPERATOR) Narrative Franklin Montez CNA - 11/18/2022 9:32 AM CHARGING OPERATOR Franklin Montez CNA ? 11/22/2022 11:12 AM Bladder Scan 103 ml Florence Ojeda APRN-SKIN FITTER PROCEDURE/MIN OR SURGICAL ORDERABLES * (ABNORMAL) URINALYSIS W/MICROSCOPIC NO CULTURE (08/09/2022 1:47 PM CDT) Color UA YELLOW YELLOW [facility] Appearance CLOUDY(A) CLEAR [facility] Specific [place] UA 1.006 1.001 - 1.035 [facility] pH [...] SEEN /LPF [facility] Comment: Test Performed at: [facility] [id number] [place] [address] ??[phone] PRUDENCIO ALDANA DO,MPH Urine URINE SPECIMEN OBTAINED BY CLEAN CATCH PROCEDURE / Unknown 08/09/2022 1:47 PM CDT 08/09/2022 1:50 PM CDT Ian Pollock MD LAB - URINALYSIS ORD ERABLES Performing Organization Address [facility] Co de Phone Number [facility] [address] [place] [address] * (ABNORMAL) IRON + TIBC + FERRITIN (08/09/2022 1:47 PM CDT) [facility] Iron 132 50 - 180 mcg/dL [facility] TIBC 272 250 - 425 mcg/dL (calc) [facility] % Saturation 49(H) 20 - 48 % (calc) [facility] Ferritin 209 24 - 380 ng/mL [facility] Comment: Test Performed at: [facility] [address] [place] [place], [place] ??[phone] PRUDENCIO ALDANA DO,MPH Blood BLOOD SPECIMEN / Unknown 08/09/2022 1:47 PM CDT 08/09/2022 1:50 PM CDT Ian Pollock MD LAB - CHEMISTRY ORDAdolfo ELIAS Performing Organization Address [facility] de Phone Number [facility] [address] [place] [address] * (ABNORMAL) CBC WITH DIFFERENTIAL (08/09/2022 1:47 PM CDT) Only the most recent of3 resultswithin the time period is included. [facility] White Blood Cell Count 6.7 3.8 - [...] 1.0 % [facility] Comment: Test Performed at: [facility] [address] [place], [place] ??[phone] PRUDENCIO ALDANA DO,MPH Blood BLOOD SPECIMEN / Unknown 08/09/2022 1:47 PM CDT 08/09/2022 1:50 PM CDT Ian Pollock MD LAB - HEMATOLOGY ORD ERABLES [facility] [address] [place] [address] * (ABNORMAL) COMPREHENSIVE METABOLIC PANEL (08/09/2022 1:47 [...] 46 U/L [facility] Comment: Test Performed at: [facility] [address] [place], [place] ??[phone] PRUDENCIO ALDANA DO,MPH Blood BLOOD SPECIMEN / Unknown 08/09/2022 1:47 PM CDT 08/09/2022 1:50 PM CDT Ian Pollock MD LAB - CHEMISTRY JANAE ELIAS Performing Organization Address City/[facility]/ZIP Co de Phone Number [facility] [address] [place] [address] * MAGNESIUM BLOOD (08/09/2022 1:47 PM CDT) Magnesium 1.9 1.5 - 2.5 mg/dL [facility] Comment: Test Performed at: [facility] [address] [place], [place] ??[phone] PRUDENCIO ALDANA DO,MPH Blood BLOOD SPECIMEN / Unknown 08/09/2022 1:47 PM CDT 08/09/2022 1:50 PM CDT Ian Pollock MD LAB - CHEMISTRY JANAE ELIAS Performing Organization Address City/[facility]/ZIP Co de Phone Number [facility] [address] [place] [address] * CK BLOOD (08/09/2022 1:47 PM CDT) CK 135 44 - 196 U/L [facility] Comment: Test Performed at: [facility] [address] [place], [place] ??[phone] PRUDENCIO ALDANA DO,MPH 08/09/2022 1:47 PM CDT 08/09/2022 1:50 PM CDT Ian Pollock MD LAB - CHEMISTRY JANAE ELIAS Performing Organization Address City/[facility]/ZIP Co de Phone Number [facility] [address] [place] [address] * CARDIAC REHAB (05/03/2022) Only the most [...] - 05/16/2023 Bridget Lomas MD ECHOCARDIOGRAPHY RA EATON * PROSTATE SPECIFIC ANTIGEN SCREEN (01/31/2022 10:17 AM CDT) PSA 0.40 < OR = 4.00 ng/mL [facility] Comment: The total PSA value from this [...] or absence of disease. Test Performed at: [facility] [id number] [place] [address] ??[phone] PRUDENCIO ALDANA DO,MPH Blood BLOOD SPECIMEN / Unknown 01/31/2022 10:17 AM CDT 01/31/2022 10:18 AM CDT Florence Ojeda BILINGUAL RESEARCH INTERVIEWER-SKIN FITTER LAB - OTHER SPATIAL SCIENTIST RY ORDERABLES Performing Organization Address City/State/[facility] Co de Phone Number [facility] [address] [place] [address] * XR HIP LEFT 2VW OR MORE (01/27/2022 9:52 AM CDT) Anatomical Region Laterality Modality Pelvis, Lower Extremity [facility] 01/27/2022 10:2 1 AM CDT Impressions [...] <=0.50 mcg/mL FEU 01/17/2022 5:14 PM CDT [facility] Comment: In the absence of [...] Lomas MD LAB - COAGULATION O RDERABLES [facility] LABORATORY [facility] [address] [place] [address], [facility] [phone] * ALLERGEN INTERPRETATION (11/08/2021 10:21 AM CHARGING OPERATOR) Interpretation See Below [facility] Comment: Specific ?Level [...] analytical performance characteristics have been determined by [facility]. It has not been cleared or approved by the U.S. Food and Drug Administration. This assay has been validated pursuant to the CLIA regulations and is used for clinical purposes. Test Performed at: [facility] [address] [facility] [place] [place] ??[phone] PRUDENCIO ALDANA DO,MPH 11/08/2021 10:2 1 AM CHARGING OPERATOR 11/08/2021 10:22 AM CHARGING OPERATOR Tariq Recio MD LAB - SEROLOGY ORDER [facility] [address] [place] [address] * (ABNORMAL) ALLERGEN RESPIRATORY PROF (IL,MO,IA) IGE (11/08/2021 10:21 AM CHARGING OPERATOR) Allergen Dermatophagoides pteronyssinus <0.10 kU/L [facility] Class [...] kU/L [facility] Class 0 [facility] Allergen Cockroach Mozambican <0.10 kU/L [facility] Class 0 [facility] Allergen Maple <0.10 kU/L [facility] Class 0 [facility] Allergen Mountain [place] <0.10 kU/L [facility] Class 0 [facility] Allergen [place] Tree <0.10 kU/L [facility] Class 0 [facility] Allergen Oakman <0.10 kU/L [facility] Class 0 [facility] Allergen [place] Tree <0.10 kU/L [facility] Class 0 [facility] Allergen White Clay <0.10 kU/L [facility] Class 0 [facility] Allergen [place] <0.10 kU/L [facility] Class 0 [facility] Allergen Elm <0.10 kU/L [facility] Class 0 [facility] Allergen Ashley/Pecan Tree <0.10 kU/L [facility] Class 0 [facility] Allergen White [place] <0.10 kU/L [facility] Class 0 [facility] Allergen Berm[place] Grass <0.10 kU/L [facility] Class 0 [facility] Allergen Hermes Grass <0.10 kU/L [facility] Class 0 [facility] Allergen Common Ragweed <0.10 kU/L [facility] Class 0 [facility] Allergen Rough Pigweed <0.10 kU/L [facility] Class 0 [facility] Allergen Greenlandic Thistle <0.10 kU/L [facility] Class 0 [facility] Allergen Rough Curiel Elder <0.10 kU/L [facility] Class 0 [facility] Allergen Mouse Urine Protein <0.10 kU/L [facility] Class 0 [facility] IgE 140(H) <WW=497 kU/L [facility] Comment: Test Performed at: [facility] [address] [place], [place] ??[phone] PRUDENCIO ALDANA DO,MPH 11/08/2021 10:2 1 AM CHARGING OPERATOR 11/08/2021 10:22 AM CHARGING OPERATOR Tariq Recio MD LAB - CHEMISTRY JANAE ELIAS [facility] Organization Address City/State/ZIP Co de Phone Number [facility] [address] [place] [address] * IR NERVE BLOCK L OR S [...] METABOLIC PANEL (CALCIUM TOTAL) (01/04/2021 1:18 PM CHARGING OPERATOR) Only the most recent of4 resultswithin the time period is included. Glucose 94 65 - 99 mg/dL [facility] Comment: ? Fasting reference interval BUN 9 7 - 25 mg/dL [facility] Creatinine 0.87 0.70 - 1.33 mg/dL [facility] Comment: For patients >49 years of age, the reference limit for Creatinine is approximately 13% higher for people identified as -Mozambican. eGFR by MDRD 94 > OR = [...] 10.3 mg/dL [facility] Comment: Test Performed at: [facility] [address] [place], [place] ??[phone] PRUDENCIO ALDANA DO,MPH Blood BLOOD SPECIMEN / Unknown 01/04/2021 1:18 PM CHARGING OPERATOR 01/04/2021 1:18 PM CHARGING OPERATOR John Nelson MD LAB - CHEMISTRY ORD ERABLES [facility] [address] [place] [address] * LIPID PROFILE (01/04/2021 1:18 PM CHARGING OPERATOR) Only the most recent of2 resultswithin the [...] LDL-C. Luciano SS et al. LACEY. 2013;310(19): 7656-1759 (http://education.[employer]/faq/JRS525) CHOL/HDLC RATIO 2.1 <5.0 (calc) [facility] Non HDL Cholesterol 61 <130 mg/dL (calc) [facility] Comment: For patients with diabetes plus 1 major ASCVD risk factor, treating to a non-HDL-C goal of <100 mg/dL (LDL-C of <70 mg/dL) is considered a therapeutic option. Test Performed at: [facility] [address] [place], [place] ??[phone] PRUDENCIO ALDANA DO,MPH Blood BLOOD SPECIMEN / Unknown 01/04/2021 1:18 PM CHARGING OPERATOR 01/04/2021 1:18 PM CHARGING OPERATOR John Nelson MD LAB - CHEMISTRY ORD ERABLES [facility] [address] [place] [address] * BRONCHIAL CHALLENGE WITH METHACHOLINE (12/21/2020 12:10 PM CHARGING OPERATOR) Impressions Paul Galeano MD - 12/21/2020 12:10 PM CHARGING OPERATOR [facility] DEPARTMENT OF PULMONARY, CRITICAL CARE, AND SLEEP MEDICINE METHACHOLINE CHALLENGE TEST Josafat Branch Umesh 12/21/2020 Hossein Mendez DO INTERPRETATION Methacholine [...] of Pulmonary, Critical Care and Sleep Medicine [facility] I have personally reviewed the fellows interpretation of the test and made any necessary corrections. Paul Galeano MD Meat Press Operatorradial arm saw operator Division of Pulmonary, Critical Care, & Sleep Medicine Narrative Paul Galeano MD - 12/21/2020 12:10 PM CHARGING OPERATOR Hossein Mendez DO ? 12/21/2020 ??1:36 PM Tariq Recio MD PFT ORDERABLES * FRACTIONAL EXHALED NITRIC OXIDE (12/21/2020 12:10 PM CHARGING OPERATOR) Impressions Paul Galeano MD - 12/21/2020 12:10 PM CHARGING OPERATOR [facility] DEPARTMENT OF PULMONARY, CRITICAL CARE, AND SLEEP MEDICINE EXHALED NITRIC OXIDE (FeNO) Josafat Calvo 12/21/2020 INTERPRETATION The measurement of fractional exhaled nitric oxide (FENO) was 35 ppb. IMPRESSION: 1. High normal fractional exhaled nitric oxide (35 ppb). 2. Compared to prior study on 09/14/2018, the FeNO has increased by 30 ppb. Hossein Mendez DO, PGY4 Pulmonary & Critical Care Fellow Division of Pulmonary, Critical Care and Sleep Medicine [facility] I have personally reviewed the fellows interpretation of the test and made any necessary corrections. Paul Galeano MD Meat Press Operatorradial arm saw operator Division of Pulmonary, Critical Care, & Sleep Medicine Narrative Paul Galeano MD - 12/21/2020 12:10 PM CHARGING OPERATOR Hossein Mendez DO ? 12/21/2020 ??1:37 PM Tariq Recio MD RESPIRATORY THERAPY ORDERABLES * FL JOINT INJECTION OR ASPIRATE (10/14/2020 10:36 AM CHARGING OPERATOR) Only the most recent of3 resultswithin the time period is included. Anatomical Region Laterality Modality Upper Extremity, Lower Extremity, Pelvis, Chest Radiographic Imaging 10/14/2020 12:1 7 PM CHARGING OPERATOR Impressions 10/14/2020 12:20 PM CHARGING OPERATOR IMPRESSION: Successful fluoroscopic guided therapeutic left hip joint injection. This report was electronically signed by BOOKER DEE MD ??on 10/14/2020 12:20 PM . Narrative 10/14/2020 12:20 PM CHARGING OPERATOR FLUOROSCOPIC GUIDED THERAPEUTIC INJECTION left HIP HISTORY: [...] ES * PSA SERIAL (09/29/2020 10:23 AM CHARGING OPERATOR) PSA Total 2.2 0.0 - 4.0 ng/mL 09/29/2020 11:46 AM CHARGING OPERATOR [facility] LABORATORY [facility] Blood BLOOD SPECIMEN / Unknown Lab Venipuncture / Unknown 09/29/2020 10:23 AM CHARGING OPERATOR 09/29/2020 11:01 AM CHARGING OPERATOR Florence Ojeda BILINGUAL RESEARCH INTERVIEWER-SKIN FITTER LAB - OTHER SPATIAL SCIENTIST RY ORDERABLES Performing Organization Address [facility]/State/[facility] Co de Phone Number [address] [address] [phone] * CARDIAC PROCEDURE ORDER (06/27/2020 4:51 AM CDT) Narrative 06/27/2020 4:51 AM CDT Ordered by an unspecified provider. Scanned Document CARDIAC SERVICES ORD ERABLES * CCL CARDIAC CATH LEFT (06/17/2020 10:06 AM CDT) Anatomical Region Laterality Modality Chest X-Ray Angiograph y Narrative 07/03/2020 11:26 AM CDT [facility] Cardiac Catheterization Procedure Note Patient: Josafat Calvo Age: [age] year old Date of : 1960 Date of Admission: 06/17/2020 Procedure Date: 06/17/20 FELLOW / SECONDARY CONNECTOR ARMATURE: Elpidio Quigley MD ATTENDING PHYSICIAN: Mikey Donovan [...] evaluation, please review the evaluation forms in [facility]. For details on monitored clinical parameters during the intra-service sedation time, please review the procedure nurse documentation in [facility] and [facility]. Total sedation administered as follows: ?? 50 mcg IV fentanyl, 0.5 mg IV midazolam. 3 ml of 1% lidocaine was administered subcutaneously at the access site. TOTAL CONTRAST USED (Isovue 370): 35 ml RADIATION: ?? AK: 409.15 mGy ?? DAP: 35273 mGycm2 HEMODYNAMIC FINDINGS: ?? - LVEDP 15 [...] Mikey Donovan MD Torres Blankenship MD CARDIAC GRAIN PICKER RAD IANT * PT-INR [facility] (06/17/2020 9:01 AM CDT) PT 13.6 12.1 - 14.8 Seconds 06/17/2020 9:41 AM CDT [facility] INR 1.1 See Comment 06/17/2020 9:41 AM T [facility] Comment:The suggested therap eutic range for standard coumadin (warfarin) therapy is an INR of 2.0-3.0. For high-risk patients (Mechanical Mitral Valve Prosthesis, etc.), the suggested prophylactic therapeutic range is an INR of 2.5-3.5. Blood BLOOD SPECIMEN / Unknown Venipuncture / Unknown 06/17/2020 9:01 AM CDT 06/17/2020 9:10 AM CDT Torres Blankenship MD LAB - COAGULATION OR DERABLES [address] [address] [phone] * (ABNORMAL) CBC W/O DIFFERENTIAL (06/17/2020 9:01 AM CDT) WBC 6.5 3.5 - 10.5 10? 3 /uL 06/17/2020 9:13 AM [facility] RBC 4.82 4.30 - 5.70 10? 6 /uL 06/17/2020 9:13 AM [facility] Hemoglobin 13.3(L) 13.5 - 17.5 g/dL 06/17/2020 9:13 AM [facility] Hematocrit 40.9 39.0 - 50.0 % 06/17/2020 9:13 AM [facility] MCV 84.9 81.0 - 97.0 fL 06/17/2020 9:13 AM [facility] MCH 27.6(L) 28.0 - 34.0 pg 06/17/2020 9:13 AM [facility] MCHC 32.5 32.0 - 36.0 g/dL 06/17/2020 9:13 AM [facility] Platelet Count 227 150 - 400 10? 3 /uL 06/17/2020 9:13 AM [facility] RDW-SD 42.4 36.0 - 50.0 fL 06/17/2020 9:13 AM [facility] RDW-CV 13.7 11.2 - 14.8 % 06/17/2020 9:13 AM [facility] MPV 9.9 9.3 - 12.8 fL 06/17/2020 9:13 AM [facility] nRBC Absolute 0.00 0 10? 3 /uL 06/17/2020 9:13 AM [facility] nRBC Auto 0.0 0 /100 WBC 06/17/2020 9:13 AM [facility] Blood BLOOD SPECIMEN / Unknown Venipuncture / Unknown 06/17/2020 9:01 AM CDT 06/17/2020 9:10 AM T Torres Blankenship MD LAB - HEMATOLOGY ORD ERABLES [facility] [address] [place], [place] [address] [phone] * XR PELVIS W LEFT HIP 2VW (04/27/2020 9:53 AM CDT) Anatomical Region Laterality Modality Pelvis Radiographic Joann ging 04/27/2020 12:1 3 PM CDT Impressions 04/27/2020 1:27 PM CDT IMPRESSION: Mild degenerative changes in the both hip joints. Report dictated by Fabrizio Aparicio M.D. (radiology services manager). Dr. BOOKER Duong MD have personally reviewed [...] joints. Report dictated by Fabrizio Aparicio M.D. (radiology services manager). Dr. BOOKER Duong MD have personally reviewed and interpreted this examination/study. This report was electronically signed by BOOKER DEE MD on04/27/2020 1:27 PM . Silvio Bain MD DIAGNOSTIC IMAGI NG ORDERABLES * (ABNORMAL) CULTURE RESPIRATORY LOWER (04/23/2020 12:18 PM CDT) Culture (A) [facility] Comment: ??CULTURE, SPUTUM/LOWER RESPIRATORY ?Micro Number: ?[id number] ??Test Status: ? Final ??Specimen Source: ?? SPUTUM ??Specimen Quality: ??Adequate ??Gram Stain: ?Many White blood cells seen ? No epithelial cells seen ? Many Mixed bacterial marlon ? Yeast present ? Gram stain indicates that the specimen is ? insurance claims representative of the lower respiratory tract. ??Result: ?Heavy growth of Yeast Isolated. ? Please contact the laboratory within 3 days if ? further identification is desired. ??COMMENT: ? Normal oropharyngeal marlon also present. Test Performed at: [facility] ??[id number] JOSEE THAKUR MD 04/23/2020 12:1 8 PM CDT 04/23/2020 12:19 PM CDT Agnieszka Haas MD LAB - MICROBIOLOGY O RDERABLES [address] [address] * COMPLETE PFT W/WO BRONCHODILATOR (03/24/2020) Impressions Tevin Gaspar MD - 03/24/2020 [facility] DEPARTMENT OF PULMONARY, CRITICAL CARE, AND SLEEP [...] of Pulmonary, Critical Care, & Sleep Medicine [facility] P: [phone] 04/08/2020 , 9:25 AM Tevin Gaspar MD RESPIRATORY THERAPY ORDERABLES * MRI LUMBAR SPINE WO CONTRAST (11/29/2019 3:43 PM CHARGING OPERATOR) Anatomical Region Laterality Modality Spine Magnetic Resonan ce 11/29/2019 3:39 PM CHARGING OPERATOR Impressions 11/29/2019 4:05 PM CHARGING OPERATOR IMPRESSION: Severe degenerative changes at L5-S1 with [...] 4:05 PM . Narrative 11/29/2019 4:05 PM CHARGING OPERATOR EXAMINATION: Magnetic resonance imaging (MRI) of the [...] of bilateral L4-5 and L5-S1 neural foramina. Dr. JORGE Duong have personally reviewed and interpreted this examination/study. This report was electronically signed by JORGE QUINTANILLA on 11/29/2019 4:05PM . April Mora MD MR ORDERABLES * XR SPINE ENTIRE 2 OR 3VW (11/04/2019 1:06 PM CHARGING OPERATOR) Anatomical Region Laterality Modality Radiographic Joann ging 11/04/2019 3:25 PM CHARGING OPERATOR Impressions 11/04/2019 3:32 PM CHARGING OPERATOR FINDINGS/IMPRESSION: There is no evidence of scoliosis. There is no coronal/sagittal imbalance. Pelvic tilt, left greater than right, measures approximately 1.5 cm. There is mild to moderate degenerative disc and joint disease. There is no evidence of vertebral subluxation on the sagittal view. Dictated by Harry Gomez MD (radiology services manager). Dr. PRANAY Duong have personally reviewed and interpreted this examination/study. This report was electronically signed by PRANAY MENDOZA ??on 11/04/2019 3:32 PM . Narrative 11/04/2019 3:32 PM CHARGING OPERATOR EXAMINATION: XR SPINE ENTIRE 2 OR [...] sagittal view. Dictated by Harry Gomez MD (radiology services manager). I, Dr. PRANAY MENDOZA have personally reviewed and interpreted this examination/study. This report was electronically signed by PRANAY MENDOZA on 11/04/2019 3:32 PM . April Mora MD DIAGNOSTIC IMAGING O RDERABLES * LAB RESULTS ORDER (09/20/2019 12:48 PM CHARGING OPERATOR) Only the most recent of3 resultswithin the time period is included. Narrative 09/20/2019 12:48 PM CHARGING OPERATOR Ordered by an unspecified provider. Scanned Document LAB - THERAPEUTIC DR PENA MONITORING ORDERABLES * HEPATITIS C AB W/RFLX TO HCV RNA QN PCR (09/19/2019 9:17 AM CHARGING OPERATOR) Hepatitis C Antibody NON-REACTI VE NON-REACT FELY [facility] Signal to Cut-Off 0.03 <1.00 [facility] Comment: HCV antibody was non-reactive. There is no laboratory evidence of HCV infection. In most cases, no further action is required. However, if recent HCV exposure is suspected, a test for HCV RNA (test code 86881) is suggested. For additional information please refer to http://education.BURLESQUICEOUS/faq/MCQ52x1 (This link is being provided for informational/ educational purposes only.) Test Performed at: [facility] [address] [place] ??[phone] PRUDENCIO ALDANA DO,MPH 09/19/2019 9:17 AM CHARGING OPERATOR 09/19/2019 9:21 AM CHARGING OPERATOR Monica Tellez BILINGUAL RESEARCH INTERVIEWERReVera LAB - CHEMI STRY ORDERABLES Performing Organization Address [facility] Co de Phone Number [place] [phone] * VITAMIN B12 (09/19/2019 9:17 AM CHARGING OPERATOR) Pathologist [facility] Vitamin B12 656 200 - 1100 pg/mL [facility] Comment: Test Performed at: [facility] [place], [place] ??[address] PRUDENCIO ALDANA DO,MPH Blood BLOOD SPECIMEN / Unknown 09/19/2019 9:17 AM CHARGING OPERATOR 09/19/2019 9:21 AM CHARGING OPERATOR Monica Tellez BILINGUAL RESEARCH INTERVIEWERReVera LAB - CHEMI STRY ORDERABLES Performing Organization Address [facility] [place] [address] * TSH (09/19/2019 9:17 AM CHARGING OPERATOR) [facility] TSH 0.66 0.40 - 4.50 mIU/L [facility] Comment: Test Performed at: [facility] [address] [place], [place] ??[address] PRUDENCIO ALDANA DO,MPH Blood BLOOD SPECIMEN / Unknown 09/19/2019 9:17 AM CHARGING OPERATOR 09/19/2019 9:21 AM CHARGING OPERATOR Monica Tellez BILINGUAL RESEARCH INTERVIEWERReVera LAB - CHEMI STRY ORDERABLES Performing Organization Address [facility] [place] [address] * URINALYSIS REFLEX TO MICROSCOPIC NO CULTURE (07/25/2019 9:35 AM CDT) Color UA YELLOW YELLOW [facility] Appearance CLEAR CLEAR [facility] Specific [place] UA 1.016 1.001 - 1.035 [facility] pH UA 5.5 5.0 - 8.0 [facility] Glucose UA NEGATIVE NEGATIVE [facility] Bilirubin UA NEGATIVE NEGATIVE [facility] Ketone UA NEGATIVE NEGATIVE [facility] Blood UA NEGATIVE NEGATIVE [facility] Protein UA NEGATIVE NEGATIVE [facility] Nitrite UA NEGATIVE NEGATIVE [facility] Leukocyte UA NEGATIVE NEGATIVE [facility] Comment: REPORT COMMENT: FASTING:YES Test Performed at: [facility] [address] [place], [place] ??[phone] PRUDENCIO ALDANA DO,MPH 07/25/2019 9:35 AM CDT 07/25/2019 9:37 AM CDT Monica Alonso Rosalinda BILINGUAL RESEARCH INTERVIEWER-SKIN FITTER LAB - URINA LYSIS ORDERABLES Performing Organization Address [facility] Co de Phone Number [facility] [phone] [place] [phone] * (ABNORMAL) HEMOGLOBIN A1C (07/25/2019 9:35 AM [...] children. REPORT COMMENT: FASTING:YES Test Performed at: [facility] [address] [place], [place] ??[phone] PRUDENCIO ALDANA DO,MPH 07/25/2019 9:35 AM CDT 07/25/2019 9:37 AM CDT Monica Alonso Rosalinda BILINGUAL RESEARCH INTERVIEWER-[facility] - CHEMI STRY ORDERABLES Performing Organization Address [facility] Co de Phone Number [facility] [address] [place] [address] * (ABNORMAL) CMP 14 ABAXIS (ALEC WAIVED) [...] Dictated by Georgie Huntley MD (vice president education). Dr. BOOKER Duong MD have personally reviewed [...] Dictated by Georgie Huntley MD (vice president education). I, Dr. BOOKER DEE MD have personally reviewed and interpreted this examination/study. This report was electronically signed by BOOKER DEE MD on05/20/2019 1:43 PM . Alexsandra CARNES-C DIAGNOSTIC IMAG ING ORDERABLES * XR THORACIC [...] L OR S UNILAT (11/14/2018 11:58 AM CHARGING OPERATOR) Anatomical Region Laterality Modality Spine X-Ray Angiograph y Narrative 11/14/2018 12:51 PM CHARGING OPERATOR History: 58 year old male with chronic [...] COMPLETE PFT W/WO BRONCHODILATOR (09/17/2018 6:49 AM CHARGING OPERATOR) Impressions Rhianna Moctezuma MD - 09/17/2018 6:49 AM CHARGING OPERATOR [facility] DEPARTMENT OF PULMONARY, CRITICAL CARE, AND SLEEP [...] Rhianna Moctezuma MD - 09/17/2018 6:49 AM CHARGING OPERATOR Chencho Ambrocio MD ? 09/14/2018 ??4:51 PM Edith Hemphill MD RESPIRATORY THERAPY ORDERABLES * SIX MINUTE WALK (09/17/2018 6:49 AM CHARGING OPERATOR) Impressions Rhianna Moctezuma MD - 09/17/2018 6:49 AM CHARGING OPERATOR [facility] DEPARTMENT OF PULMONARY, CRITICAL CARE, AND SLEEP MEDICINE SIX MINUTE WALK TEST Josafat Branch Umesh 09/14/2018 Interpretation: The patient walked for 6 [...] Rhianna Moctezuma MD - 09/17/2018 6:49 AM CHARGING OPERATOR Chencho Ambrocio MD ? 09/14/2018 ??4:47 PM Edith Hemphill MD RESPIRATORY THERAPY ORDERABLES * PFT OXYGEN DESATURATION STUDY (09/17/2018 6:49 AM CHARGING OPERATOR) Impressions Rhianna Moctezuma MD - 09/17/2018 6:49 AM CHARGING OPERATOR [facility] OF PULMONARY, CRITICAL CARE, AND SLEEP MEDICINE [...] Rhianna Moctezuma MD - 09/17/2018 6:49 AM CHARGING OPERATOR Chencho Ambrocio MD ? 09/14/2018 ??4:44 PM Edith Hemphill MD PFT ORDERABLES * FRACTIONAL EXHALED NITRIC OXIDE (09/17/2018 6:49 AM CHARGING OPERATOR) Impressions Rhianna Moctezuma MD - 09/17/2018 6:49 AM CHARGING OPERATOR [facility] DEPARTMENT OF PULMONARY, CRITICAL CARE, AND SLEEP [...] Rhianna Moctezuma MD - 09/17/2018 6:49 AM CHARGING OPERATOR Chencho Ambrocio MD ? 09/14/2018 ??4:43 PM Edith Hemphill MD RESPIRATORY THERAPY ORDERABLES * (ABNORMAL) GLUCOSE - POINT OF CARE (11/04/2015 10:34 PM CHARGING OPERATOR) [facility] Glucose WB/POC 210(H) 70 - 125 mg/dL 11/05/2015 6:16 AM CHARGING OPERATOR [facility] Blood BLOOD SPECIMEN / Unknown 11/04/2015 10:34 PM CHARGING OPERATOR 11/05/2015 6:16 AM CHARGING OPERATOR Narrative [facility] - 11/05/2015 6:16 AM CHARGING OPERATOR NOTIFIED CAREGIVER Robert Angelo DO LAB - POINT OF CARE ORDERABLES Performing Organization Address [facility]/ZIP Co de Phone Number [facility] [address] * VALPROIC ACID LEVEL (11/04/2015 11:03 AM CHARGING OPERATOR) [facility] Valproic Acid 57.84 50 - 100 ug/mL 11/04/2015 11:53 AM CHARGING OPERATOR [facility] Blood BLOOD SPECIMEN / Unknown Lab Venipuncture / Unknown 11/04/2015 11:03 AM CHARGING OPERATOR 11/04/2015 11:09 AM CHARGING OPERATOR Lucille Dong BILINGUAL RESEARCH INTERVIEWER-SKIN FITTER LAB - CHEMISTRY ORDERABLES Performing Organization Address [facility] Co de Phone Number [facility] [address] Care Teams Machinist Apprentice Wood Relationship Specialty Start Date End Date Natalie Baum: [phone] [address] [place] [address] PCP - General 05/06/24 Katina Casiano DO [address] OF [facility] [place], [place] Hospitalist 06/05/23 Tracey Ang PA [address] [facility] [address] [place] [address] Physician Exterminator Helper 08/15/23
--- OUTSIDE RECORDS SUMMARY | 2024-12-04 07:23 | XMS_ITS ---
Author Organization [facility] Address [address] [place] [address] Phone Care Team Providers Care Supplier Diversity Director Name Role Phone SADIE JACK MD Unavailable Unavailable Plan of Treatment Instructions to patient Intervention and counseling on cessation of tobacco use : Patient recieved smoking cessation handout Last Documented On 0 8:27AM ; [facility] Intervention and counseling on cessation of tobacco use : Patient recieved smoking cessation handout Last Documented On 0 9:50AM ; [facility] Intervention and counseling on cessation of tobacco use : Patient recieved smoking cessation handout Last Documented On 0 11:06AM ; [facility] Intervention and counseling on cessation of tobacco use : Patient recieved smoking cessation handout Last Documented On 9 11:25AM ; [facility] Education and Decision Aids were provided during visit for: Pill Count: 0 Last Documented On 0 9:52AM ; [facility] Assessments Includes: Assessments for all patient encounters Findings Encounter Date Chronic pain syndrome PAIN MANAGEMENT FO LLOW UP with PAUL L BHARATHI [facility] 04/29/2020 Last Documented On 0 2:51PM ; [facility] Lumbar canal stenosis with n eurogenic claudication PAIN MANAGEMENT FOLLOW UP with PAUL L BHARATHI [facility] 04/29/2020 Last Documented On 0 2:51PM ; [facility] Myalgia PAIN MANAGEMENT [facility]LLOW UP [facility]2020 Last Documented On 0 2:51PM ; [facility] Myalgia PAIN MANAGEMENT FOLLOW UP with T KAHLIL L BHARATHI [facility] 04/29/2020 Last Documented On 0 2:51PM ; [facility] Sacroiliitis PAIN MANAGEMENT FOLLOW UP with T KAHLIL L BHARATHI [facility]- 04/29/2020 Last Documented On 0 2:51PM ; [facility] Chronic pain syndrome PAIN MANAGEMENT FO LLOW UP with PAUL L BHARATHI [facility]- 12/27/2019 Last Documented On 0 12:47PM ; [facility] Lumbar radiculopathy PAIN MANAGEMENT FOL LOW UP with PAUL L BHARATHI [facility]- 12/27/2019 Last Documented On 0 12:47PM ; [facility] Myalgia PAIN MANAGEMENT FOLLOW UP with T KAHLIL L BHARATHI [facility]- 12/27/2019 Last Documented On 0 12:47PM ; [facility] Sacroiliitis PAIN MANAGEMENT FOLLOW UP with T KAHLIL L BHARATHI [facility]- 12/27/2019 Last Documented On 0 12:47PM ; [facility] Chronic pain syndrome PAIN MANAGEMENT FO LLOW UP with PAUL L BHARATHI [facility] 11/28/2019 Last Documented On 0 11:13AM ; [facility] Lumbar radiculopathy PAIN MANAGEMENT FOL LOW UP with PAUL L BHARATHI [facility]- 11/28/2019 Last Documented On 0 11:13AM ; [facility] Myalgia PAIN MANAGEMENT FOLLOW UP with T KAHLIL L BHARATHI [facility]- 11/28/2019 Last Documented On 0 11:13AM ; [facility] Sacroiliitis PAIN MANAGEMENT FOLLOW UP with T KAHLIL L BHARATHI [facility] 11/28/2019 Last Documented On 0 11:13AM ; [facility] Chronic pain syndrome PAIN MANAGEMENT NE W CONSULT with PAUL L BHARATHI [facility]- 10/07/2019 Last Documented On 9 9:45AM ; [facility] Lumbar radiculopathy PAIN MANAGEMENT NEW CONSULT with PAUL L BHARATHI [facility]- 10/07/2019 Last Documented On 9 9:45AM ; [facility] Myalgia PAIN MANAGEMENT NEW CONSULT with PAUL L BHARATHI [facility] 10/07/2019 Last Documented On 9 9:45AM ; [facility] Sacroiliitis PAIN MANAGEMENT NEW CONSULT with PAUL DAVIS-BC 10/07/2019 Last Documented On 9 9:45AM ; [facility] Instructions Includes: Instructions for all patient encounters Instructions to patient Intervention and counseling on cessation of tobacco use : Patient recieved smoking cessation handout Last Documented On 0 8:27AM ; [facility] Intervention and counseling on cessation of tobacco use : Patient recieved smoking cessation handout Last Documented On 0 9:50AM ; [facility] Intervention and counseling on cessation of tobacco use : Patient recieved smoking cessation handout Last Documented On 0 11:06AM ; [facility] Intervention and counseling on cessation of tobacco use : Patient recieved smoking cessation handout Last Documented On 9 11:25AM ; [facility] Education and Decision Aids were provided during visit for: Pill Count: 0 Last Documented On 0 9:52AM ; [facility] Medical Equipment - Implanted Devices Includes: Current and historical Devices No Medical Equipment Recorded Medications Includes: Current and historical Medications Current Medications (continue as prescribed) Tylenol with Codeine #3 300-30 MG Oral Tablet 06/24/2020 Provider: PAUL GALLEGO Diagnosis: Radiculopathy, l umbar region 1 po BID prn Last Documented On 0 10:36AM By PAUL DAVIS-BC ; [facility] Gabapentin 600 MG Oral Tablet 05/26/2020 Provider: PAUL DAVIS -BC Diagnosis: Radiculopathy, l umbar region TAKE 1 TABLET BY MOUTH THREE TIMES DAILY. Last Documented On 0 2:54PM By PAUL DAVIS-BC ; [facility] Triamcinolone Acetonide 0.1% External Cream 10/07/2019 Provider: Diagnosis: Last Documented On 9 11:28AM By Faye MEJÍA ; [facility] Spironolactone 50 MG Oral Tablet 10/07/2019 Provider : Diagnosis: Last Documented On 9 11:27AM By Faye MEJÍA ; [facility] Omeprazole 40 MG Oral Capsule Delayed Release 10/07/20 Provider: Diagnosis: Last Documented On 9 11:27AM By Faye MEJÍA ; [facility] Ibuprofen 600 MG Oral Tablet 10/07/2019 Provider: Diagnosis: Last Documented On 9 11:27AM By Faye MEJÍA ; [facility] hydrOXYzine Pamoate 50 MG Oral Capsule 10/07/2019 Pr ovider: Diagnosis: Last Documented On 9 11:26AM By Faye MEJÍA ; [facility] Carvedilol 25 MG Oral Tablet 10/07/2019 Provider: Diagnosis: Last Documented On 9 11:26AM By Faye MEJÍA ; [facility] Past Medications on file Tylenol with Codeine #3 300-30 MG Oral Tablet 05/12/2020 - 06/23/2020 Provider: PAUL NUNEZ Diagnosis: Radiculopathy, l umbar region 1 po BID prn Last Documented On 0 10:31AM By PAUL NUNEZ ; [facility] Lyrica 150 MG Oral Capsule 04/29/2020 - 06/24/2020 Provider: PAUL NUNEZ Diagnosis: Spinal stenosis, lumbar region with neurogenic claudication 1 CAPSULE TWO TIMES A DAY Last Documented On 0 10:24AM By PAUL NUNEZ ; [facility] Gabapentin 600 MG Oral Tablet 04/10/2020 - 05/26/2020 Provider: PAUL NUNEZ Diagnosis: Radiculopathy, l umbar region TAKE 1 TABLET BY MOUTH THREE TIMES DAILYdo not fill before 04/14/20 Last Documented On 0 2:41PM By PAUL NUNEZ ; [facility] Gabapentin 600 MG Oral Tablet 03/16/2020 - 04/09/2020 Provider: PAUL NUNEZ Diagnosis: Radiculopathy, l umbar region TAKE 1 TABLET BY MOUTH THREE TIMES DAILY Last Documented On 0 7:19AM By PAUL DEMARCO ; [facility] Gabapentin 600 MG Oral Tablet 02/19/2020 - 03/16/2020 Provider: PAUL DEMARCO Diagnosis: Radiculopathy, l umbar region One tablet three times a day Last Documented On 0 2:26PM By PAUL DEMARCO ; [facility] Tylenol with Codeine #3 300-30 MG Oral Tablet 02/19/2020 - 05/11/2020 Provider: PAUL DEMARCO Diagnosis: Radiculopathy, l umbar region 1 po TID pr01/25/20 fill date Last Documented On 0 8:42AM By PAUL DEMARCO ; [facility] Tylenol with Codeine #3 300-30 MG Oral Tablet 01/23/2020 - 02/19/2020 Provider: PAUL DEMARCO Diagnosis: Radiculopathy, l umbar region 1 po BID pr01/25/20 fill date Last Documented On 0 2:53PM By PAUL DEMARCO ; [facility] Tylenol with Codeine #3 300-30 MG Oral Tablet 12/27/2019 - 01/22/2020 Provider: PAUL DEMARCO Diagnosis: Radiculopathy, l umbar region 1 po BID prn Last Documented On 0 12:53PM By PAUL NUNEZ ; [facility] Tylenol with Codeine #3 300-30 MG Oral Tablet 11/28/2019 - 12/27/2019 Provider: PAUL DEMARCO Diagnosis: Radiculopathy, l umbar region 1 po BID prn Last Documented On 0 10:22AM By PAUL DEMARCO ; [facility] Gabapentin 300 MG Oral Capsule 11/05/2019 - 04/29/2020 Provider: PAUL DEMARCOBC Diagnosis: Radiculopathy, l umbar region One tablet three times a day Last Documented On 0 8:29AM By Faye MEJÍA ; [facility] Gabapentin 300 MG Oral Capsule 10/07/2019 - 11/05/2019 Provider: PAUL NUNEZ Diagnosis: Radiculopathy, l umbar region as directed QHS x 3 days, BI D x 3 days then TID Last Documented On 0 12:20PM By PALU NUNEZ ; [facility] Medications Administered Includes: Administered Medications in patient's chart No Administered Medications Recorded Results Includes: Results from 12/04/2023 through 12/04/2024 No Results Recorded For Specified Dates History of Present Illness History of Present Illness not supported for this document type No History of Present Illness Recorded Social History Description Last Updated Smoker 04/29/2020 Last Documented On 0 2:51PM ; [facility] Smoking status : Current everyday smoker 10/07/2019 Last Documented On 9 9:45AM ; [facility] Medical History Includes: Medical History in patient's chart Description Last Updated Reviewed and Unchanged 12/27/2019 Last Documented On 0 12:47PM ; [facility] Family History Includes: Family History in [...] Active Last Documented On 0 8:29AM ; [facility] Lisinopril Allergy 10/07/2019 Active Last Documented On 0 8:29AM ; [facility] Insurance Includes: Active Insurance Policies Plan Name Member ID Group # Subscriber Relationship Effect jeannine Dates 1 - [place] [facility] [id number] RYLEE GRAY Self Clinical Notes Includes: Signed Clinical Notes starting from 11/18/2022 No Clinical Notes Recorded
--- OUTSIDE RECORDS SUMMARY | 2024-12-04 07:23 | XMS_ITS ---
Care Plan - [facility] Created on: December 04, 2024 RYLEE GRAY : 1960 Sex: Male Author Organization [facility] Address [address] [place] [address] Phone Care Team Providers Care Fuel Conversion Technician Name Role Phone MARCIE WALTERS, SADIE Giraldo Unavailable
--- OUTSIDE RECORDS SUMMARY | 2024-12-04 07:23 | XMS_ITS | Encounter Summary ---
Author Organization [facility] Address [facility] [place] [address] Care Team Providers Care Laser Technician Name Role Phone Amilcar Osorio MD Primary Care Provider [phone] Monica Tellez NP Primary Care Provider [phone] Encounter Details Date Type Department Care Team (Late st Contact Info) Description 04/02/[address] [facility] Outpatient Therapy [address] [place], [place] [id number] Grecia Hess, [place] [address] Social History Tobacco Use Types Packs/Day Years [...] filedocumented in this encounter Care Teams Laser Technician Relationship Specialty Start Date End Date Amilcar Osorio MD [address] [facility] [address] [place] [address] PCP - General 05/01/17 09/04/19 Monica Tellez NP [address] [place] [phone] PCP - General NURSE PRACTITIONER 09/05/19 documented as of this encounter
--- OUTSIDE RECORDS SUMMARY | 2024-12-04 07:23 | XMS_ITS | Clinical Summary ---
Author Organization [facility] Address [address] [place] [address] Care Team Providers Care Solid Waste Facility Supervisor Name Role Phone Katina Casiano DO Unavailable [phone] Tracey Ang PA Unavailable [phone] Natalie Baum Primary Care Provider [phone] Source Comments [facility],non-owned Affiliates and Associated Physician Practices is amultiple site organization consisting of ambulatory clinics and hospital sitesin [place] and [place]. This disclosure is being madepursuant to the Care Everywhere program and may not contain all information available regarding this patient. Last updated 18.[facility] Allergies Active Allergy Reactions Criticality Noted [...] MG/3ML) 0.083% nebulizer solutionIndicati ons:Centrilobula r emphysema (HCC),Asthma-WASH DRILLER HELPER D overlap syndrome (HCC) Inhale 2.5 (two [...] Active Symbicort 160-4.5 MCG/ACT inhalerIndicatio ns:Centrilobular emphysema (HCC),Asthma-WASH DRILLER HELPER D overlap syndrome (HCC) Inhale 2 (two) puffs by mouth once daily 10.2 g 3 08/29/2023 Active albuterol HFA (Proventil; Ventolin; Proair) 108 (90 Base) MCG/ACT inhalerIndicatio ns:Centrilobular emphysema (HCC),Asthma-WASH DRILLER HELPER D overlap syndrome (HCC) Inhale 2 (two) [...] 01/04/2023 Assessment & Plan (01/04/2023 2:27 PM CATTLE DEALER): - sleep study pending Fatigue 01/04/2023 Assessment & Plan (01/04/2023 2:28 PM CATTLE DEALER): - Check TSH - pending sleep study [...] 07/29/2022 Assessment & Plan (01/04/2023 2:26 PM CATTLE DEALER): - Due for TDap, Zoster, Covid outside [...] 07/29/2022 Assessment & Plan (01/04/2023 2:19 PM CATTLE DEALER): - Will try to resend Eplerenone, previously [...] 01/05/2022 Assessment & Plan (01/04/2023 2:26 PM CATTLE DEALER): - Likely sleep-related, obesity, SHAYNE - Cont. PPI Sleep choking syndrome 01/05/2022 PND (paroxysmal nocturnal dyspnea) 01/05/2022 Bipolar affective disorder 12/24/2021 Back pain 12/24/2021 Family history of other specified conditions Asthma-COPD overlap syndrome 11/11/2021 Assessment & Plan (01/04/2023 2:18 PM CATTLE DEALER): - Tob cessation Chronic midline low back pain without sciatica 0 11/09/2021 Lumbosacral disc disease 11/09/2021 Foraminal stenosis of lumbar region 11/09/2021 Heart failure with reduced ejection fraction 09/2021 Assessment & Plan (05/30/2023 3:04 PM CDT): HF with EF recovered to normal. Continue current treatment. Assessment & Plan (01/04/2023 2:16 PM CATTLE DEALER): - See HTN above - Pt not [...] 07/11/2019 Assessment & Plan (01/04/2023 2:15 PM CATTLE DEALER): - Stable, despite holding spirono due to [...] 11/06/2017 Assessment & Plan (01/04/2023 2:13 PM CATTLE DEALER): - Encouraged cessation, ready to quit - [...] Acute on chronic systolic heart failure 01/05/2022 Encounters Date Type Department Care Team Description 12/02/2024 Refill [facility] [facility], [place] [id number] Florence Ojeda, ELECTRIC CRANE OPERATOR-VACUUM CLEANER OPERATOR Refill Request from Last 3 Months Immunizations Name Administration Dates Next Due COVID DIOR PRIMARY 18+YR 01/17/2021, INFLUENZA VACCINE 08/13/2020 INFLUENZA [...] years 1-dose series) 2021 COVID-19 VACCINE ( season) 2024 09/29/2023, 09/14/2021, 01/17/2021, Additional history [...] HEPATITIS C SCREENING Completed 09/19/2019 PNEUMOCOCCAL VACCINE 50+ Completed 07/29/2022, 06/30 HEPATITIS B VACCINE Aged Out No longe r eligible based on patient's age to complete this topic HIB VACCINE Aged Out No longer eligi ble based on patient's age to complete this topic HPV VACCINE Aged Out No longer eligi ble based on patient's age to complete this topic MENINGOCOCCAL (Group B) VACCINE Aged Out No longer eligible based on [...] ENDOSCOPY, COLON, SCREENING Routine 12/07/2022 10:04 AM CATTLE DEALER COMPREHENSIVE METABOLIC PANEL Routine 08/09/2022 1:47 PM CDT Weight loss HEPATITIS C AB W/RFLX TO HCV RNA QN PCR 09/19/2019 9:17 AM CATTLE DEALER from Last 3 Months or Most Recently Relevant to Health Maintenance Results * ENDOSCOPY, COLON, SCREENING (12/07/2022 10:04 AM CATTLE DEALER) Report Endoscopy POC Endoscopy Department Report _ Patient Name: Josafat Calvo ?Procedure Date: 12/07/2022 10:04 AM ?Date of : 1960 Classification: Outpatient ?Gender: Male Ethnicity: Not or ? Race: Black or _ Providers: ?Tal Mccormick Referring MD: ? Ian Pollock (Referring ) Procedure: ?Colonoscopy [...] Procedure Code(s): ? --- Professional --- ? 63141, Colonoscopy, flexible; with removal of tumor(s), polyp(s), or ? other lesion(s) by snare technique Diagnosis Code(s): ?--- Professional --- ?Z86.010, Personal history of colonic polyps ?K63.5, Polyp of colon ?Z80.0, Family history of malignant neoplasm of ?digestive organs CPT copyright 2019 [employer]. All rights reserved. The codes documented in this report are preliminary and upon railroad police review may be revised to meet current compliance requirements. Tal Mccormick, 12/07/2022 10:49:20 AM Note Initiated On: 12/07/2022 10:04 AM Number of Addenda: 0 ? [facility] ? [address] [place] [address] [facility] 12/07/2022 10:0 4 AM CATTLE DEALER Rae Tal Mccormick MD GI PRO CEDURE ORDERABLES [facility] * (ABNORMAL) COMPREHENSIVE METABOLIC PANEL (08/09/2022 [...] 46 U/L [facility] Comment: Test Performed at: [facility] [address] [place], [place] ??[address] PRUDENCIO ALDANA DO,MPH Blood BLOOD SPECIMEN / Unknown 08/09/2022 1:47 PM CDT 08/09/2022 1:50 PM CDT Ian Pollock MD LAB - CHEMISTRY JANAE ELIAS [facility] Organization Address City/State/ZIP Co de Phone Number [facility] [address] [place] [address] * HEPATITIS C AB W/RFLX TO HCV RNA QN PCR (09/19/2019 9:17 AM CATTLE DEALER) Hepatitis C Antibody NON-REACTI VE NON-REACT FELY [facility] Signal to Cut-Off 0.03 <1.00 [facility] Comment: HCV antibody was non-reactive. There is no laboratory evidence of HCV infection. In most cases, no further action is required. However, if recent HCV exposure is suspected, a test for HCV RNA (test code 76490) is suggested. For additional information please refer to http://education.Cleverlize/faq/XZE37p5 (This link is being provided for informational/ educational purposes only.) Test Performed at: [facility] [address] [facility] [place] ??[id number] PRUDENCIO ALDANA DO,MPH 09/19/2019 9:17 AM CATTLE DEALER 09/19/2019 9:21 AM CATTLE DEALER Monica Tellez ELECTRIC CRANE OPERATOR-VACUUM CLEANER OPERATOR LAB - CHEMI STRY ORDERABLES [facility] [address] [place] [address] from Last 3 Months or Most Recently Relevant to Health Maintenance Advance Directives Documents on File Type Date Recorded Patient Dental Service Technician Expl anation Adv Directive/Living Will/POA 11/05/2015 12:22 PM * Full Code (Latest Code Status on File) Date Activated Date Inactivated Comments 11/01/2015 9:11 PM 11/05/2015 6:02 AM Care Teams Solid Waste Facility Supervisor Relationship Specialty Start Date End Date Natalie Baum [address] [place] [address] PCP - General 05/06/24 Katina Casiano DO [address] [facility] [address] [facility] INTERNAL MEDICINE [place], [place] Hospitalist 06/05/23 Tracey Ang PA [address] [facility] [address] [place] [address] Physician Bulb Grower 08/15/23
--- OUTSIDE RECORDS SUMMARY | 2024-12-04 07:23 | XMS_ITS | Continuity of Care Document ---
Author Organization [facility] Address [address] [place] [address] Phone Care Team Providers Care Avp Name Role Phone Unavailable Unavailable Unavailable Medications [...] VST EST PT LOW TO MOD SEVERITY [facility] , [address], [place], [place], [address], tel:[phone] [facility] OTHER SPECFD COUNSELING 8 No Information [facility] , [address], [place], [place], [address], [place] tel:[phone] [facility] No Information 8 No Information OFFICE CONSULT, 15 MIN, 3 RODRIGUEZ COMPS: PROB FOCUS HX; PROB FOCUS EXAM; [facility] [employer] , [address], [place], [place], [address], [place] tel:[phone] [facility] COUNSELING NOS 8 No Information HOME VST EST PT LOW TO MOD SEVERITY [facility] , [address], [place], [place], [address], [place] tel:[phone] [facility] OTHER SPECFD COUNSELING 8 No Information HOME VST NEW PT HI SEVERITY [facility] , [address], [place], [place], [address], [place] tel:[phone] [facility] DRUG ABUSE NEC-UNSPECDEPRES SIVE DISORDER NECHYPERTENSION NOS 8 No Information [employer] , [address], [place], [place], [address], [place] tel:[phone] [facility] DENTAL EXAMINATION 8 No Information Family History Family Member Type Diagnosis Age At Onset No Information Payers Payer name Insurance type Covered republican ID Authoriza tion(s) No Information Social History [...]
--- OUTSIDE RECORDS SUMMARY | 2024-12-04 07:23 | XMS_ITS | Encounter Summary ---
Author Organization [facility] Address [address] [place] [address] Phone Care Team Providers Care Retirement Assistant Name Role Phone Matthew Mccabe MD Primary Care Prov ider Stan Meza MD Unavailable [phone] Encounter Details Date Type Department Care Team (Late st Contact Info) Description 10/24/2024 Documentation [facility] [address] [facility] [address] 8 [place] [phone] Olimpia Parr, [facility] Social History Tobacco Use Types Packs/Day Years [...] file Legal Sex Male 6:04 PM SENIOR HYDROGEOLOGIST Gender Identity Not on file Sexual Orientation Not on file documented as of this encounter Plan of Treatment Not on file documented as of this encounter Visit Diagnoses Not on filedocumented in this encounter Care Teams Retirement Assistant Relationship Specialty Start Date End Date Matthew Mccabe MD [address] [place] [address] PCP - General Family Medicine 05/13/24 Stan Meza MD [address] [facility], [address] [place] [address] Medical Oncologist/Thread Spooler Medical Oncology 06/28/24 documented as of this encounter
--- OUTSIDE RECORDS SUMMARY | 2024-12-04 07:24 | XMS_ITS | Encounter Summary ---
Author Organization [facility] Address [address] [place] [address] Care Team Providers Care Cashier Or Checker Stock Clerk Name Role Phone Monica Tellez CALL CENTER PROFESSIONAL-ARTIFICIAL LIMB FITTER Primary Care Provi cristobal Ian Pollock MD Primary Care Provider [phone] Ian Pollock MD Primary Care Provider [phone] Ian Pollock MD Primary Care Provider [phone] Ian Pollock MD Primary Care Provider [phone] Ian Pollock MD Primary Care Provider [phone] Katina Casiano DO Unavailable [phone] Xavi ACOSTA MD, Fred R Primary Care Provider + Katina Casiano DO Unavailable [phone] Tracey Ang PA Unavailable [phone] Belkis Angel CALL CENTER PROFESSIONAL-ARTIFICIAL LIMB FITTER Primary Care Provider + Natalie Baum Primary Care Provider [phone] Reason for Visit * Reason Onset Date Comments Results 10/25/2019 Encounter Details Date Type Department Care Team (Late st Contact Info) Description 10/25/2019 Telephone [facility] [address] [address] Monica Tellez CALL CENTER PROFESSIONAL-ARTIFICIAL LIMB FITTER [address] [place] [address] Results Social History Tobacco Use Types Packs/Day [...] Janice Conn RN - 10/31/2019 12:18 PM STATE GAME WARDEN Pt calling again stating that Lashon Rosalinda had sent him for a Cardiac Ultrasound. This TNs. Found HCTTE 2D w/Con Doppler/color CMPT Done 10/25/2019, in chart under Cardiac tab, Faxed to [facility]. Pt request callback: [phone]. Pt seems very nervous about his results. E GAME WARDEN * Telephone Encounter - Monica Tellez APRN-CNP - 10/25/2019 1:56 PM STATE GAME WARDEN Please find out what ultrasound he had. Have not ultrasound results. Who would have ordered this and where?? [facility] D[facility] E GAME WARDEN * Telephone Encounter - Maria Isabel William RN - 10/25/2019 1:47 PM CST Patient nervous about ultrasound result Please call [phone] E GAME WARDEN documented in this encounter Plan of Treatment [...] on filedocumented in this encounter Care Teams Cashier Or Checker Stock Clerk Relationship Specialty Start Date End Date Monica Tellez APRN-ARTIFICIAL LIMB FITTER PCP - General 07/03/19 11/13/19 Ian Pollock MD PCP - General 11/14/19 12/12/19 Ian Pollock MD PCP - General 12/13/19 05/25/20 Ian Pollock MD PCP - General 05/26/20 06/15/20 Ian Pollock MD [address] OF [facility] [place] [address] PCP - General 07/31/20 08/20/20 Ian Pollock MD [address] [facility] OF [facility] [place] [address] PCP - General 08/21/20 05/29/23 Jameel Hurley III, MD [address] DIV [place] [address] PCP - General Internal Medicine 06/05/23 08/28/23 Belkis Angel, CALL CENTER PROFESSIONAL-ARTIFICIAL LIMB FITTER [address] [place] [address] PCP - General Nurse Practitioner 08/29/23 05/05/24 Natalie Baum [address] [place] [address] PCP - General 05/06/24 Katina Casiano DO [address] DIV OF GEN INTERNAL MEDICINE [place], [place] Resident - PCP Internal Medicine 08/10/22 05/29/23 Katina Casiano DO [address] DIV OF GEN INTERNAL MEDICINE [place], [place] Hospitalist 06/05/23 Tracey nAg PA [address] [facility] [address] [place] [address] Physician Acting Section Chief 08/15/23 documented as of this encounter
--- OUTSIDE RECORDS SUMMARY | 2024-12-04 07:24 | XMS_ITS | Encounter Summary ---
Author Organization [facility] Address [address] [facility] [facility] [place] [address] Care Team Providers Care Delivery Professional Name Role Phone Monica Tellez OUTPATIENT PHARMACY MANAGER-ENTRY DRIVER OPERATOR Primary Care Provi cristobal Ian Pollock MD Primary Care Provider [phone] Ian Pollock MD Primary Care Provider [phone] Ian Pollock MD Primary Care Provider [phone] Ian Pollock MD Primary Care Provider [phone] Ian Pollock MD Primary Care Provider [phone] Katina Casiano DO Unavailable [phone] Xavi ACOSTA MD, Fred R Primary Care Provider + Katina Casiano DO Unavailable [phone] Tracey Ang PA Unavailable [phone] Belkis Angel OUTPATIENT PHARMACY MANAGER-ENTRY DRIVER OPERATOR Primary Care Provider + Natalie Baum Primary Care Provider [phone] Reason for Visit * Reason Onset Date Comments General 11/12/2019 Encounter Details Date Type Department Care Team (Late st Contact Info) Description 11/12/2019 Telephone [facility] [address] [place] [address] Monica Tellez OUTPATIENT PHARMACY MANAGER-ENTRY DRIVER OPERATOR [address] [place] [address] General Social History Tobacco Use Types Packs/Day [...] Monica Tellez APRN-CNP - 11/12/2019 2:57 PM WARP DRAWER Patient can be scheduled with other provider if he wants. He was upset that I told him to ask his pulmonary doctor to order low dose CT since pulmonary was the one who usually ordered this. [facility] Díaz DRAWER * Telephone Encounter - Nadeem Hancock - 11/12/2019 1:07 PM CST Pt called to request to be released from the provider's care. Caller stated that the provider has done a couple of things to rub him the wrong way, and he would like another provider. Pt provided call back number [phone] Message routed to provider for review and assistance DRAWER documented in this encounter Plan of Treatment [...] on filedocumented in this encounter Care Teams Delivery Professional Relationship Specialty Start Date End Date Monica Tellez, OUTPATIENT PHARMACY MANAGER-ENTRY DRIVER OPERATOR PCP - General 07/03/19 11/13/19 Ian Pollock MD PCP - General 11/14/19 12/12/19 Ian Pollock MD PCP - General 12/13/19 05/25/20 Ian Pollock MD PCP - General 05/26/20 06/15/20 Ian Pollock MD [address] [facility] OF [facility] [place] [address] PCP - General 07/31/20 08/20/20 Ian Pollock MD [address] DIV [place] [address] PCP - General 08/21/20 05/29/23 Jameel Hurley III, MD [address] [facility] [place] [address] PCP - General Internal Medicine 06/05/23 08/28/23 Belkis Angel, OUTPATIENT PHARMACY MANAGER-ENTRY DRIVER OPERATOR [address] [facility] 2nd [place] [address] PCP - General Nurse Practitioner 08/29/23 05/05/24 Natalie Baum [address] [place] [address] PCP - General 05/06/24 Katina Casiano DO [address] [facility] [address] DIV OF GEN INTERNAL MEDICINE [place], [place] Resident - PCP Internal Medicine 08/10/22 05/29/23 Katina Casiano DO [address] [facility] [address] DIV OF GEN INTERNAL MEDICINE [place], [place] Hospitalist 06/05/23 Tracey Ang PA [address] [facility] [address] [place] [address] Physician Aerospace Manager 08/15/23 documented as of this encounter
--- OUTSIDE RECORDS SUMMARY | 2024-12-04 07:24 | XMS_ITS | Encounter Summary ---
Author Organization [facility] Address [address] [place] [address] Care Team Providers Care Mash Grinder Name Role Phone Monica Tellez PATIENT ACCOUNT SPECIALIST-WALLPAPER HANGER HELPER Primary Care Provi cristobal Ian Pollock MD Primary Care Provider [phone] Ian Pollock MD Primary Care Provider [phone] Ian Pollock MD Primary Care Provider [phone] Ian Pollock MD Primary Care Provider [phone] Ian Pollock MD Primary Care Provider [phone] Katina Casiano DO Unavailable [phone] Xavi ACOSTA MD, Fred R Primary Care Provider + Katina Casiano DO Unavailable [phone] Tracey Ang PA Unavailable [phone] Belkis Angel PATIENT ACCOUNT SPECIALIST-WALLPAPER HANGER HELPER Primary Care Provider + Natalie Baum Primary Care Provider [phone] Reason for Visit * Reason Onset Date Comments Appointment 09/11/2019 Encounter Details Date Type Department Care Team (Late st Contact Info) Description 09/11/2019 Telephone [facility] [address] [address] Monica Tellez PATIENT ACCOUNT SPECIALIST-WALLPAPER HANGER HELPER [address] [place] [address] Appointment Social History Tobacco Use Types Packs/Day [...] disconnected Called again warm transfer to scheduling NE MERCHANDISING SPECIALIST documented in this encounter Plan of [...] on filedocumented in this encounter Care Teams Mash Grinder Relationship Specialty Start Date End Date Monica Tellez, PATIENT ACCOUNT SPECIALIST-WALLPAPER HANGER HELPER PCP - General 07/03/19 11/13/19 Ian Pollock MD PCP - General 11/14/19 12/12/19 Ian Pollock MD PCP - General 12/13/19 05/25/20 Ian Pollock MD PCP - General 05/26/20 06/15/20 Ian Pollock MD [address] [place] [address] PCP - General 07/31/20 08/20/20 Ian Pollock MD [address] [place] [address] PCP - General 08/21/20 05/29/23 Jameel Hurley III, MD [address] [facility] [place] [address] PCP - General Internal Medicine 06/05/23 08/28/23 Belkis Angel, PATIENT ACCOUNT SPECIALIST-WALLPAPER HANGER HELPER [address] [address] PCP - General Nurse Practitioner 08/29/23 05/05/24 Natalie Baum [address] [place] [address] PCP - General 05/06/24 Katina Casiano DO [address] [facility] [address] DIV OF GEN INTERNAL MEDICINE [place], [place] Resident - PCP Internal Medicine 08/10/22 05/29/23 Katina Casiano DO [address] [facility] [address] [facility] INTERNAL MEDICINE [place], [place] Hospitalist 06/05/23 Tracey Ang PA [address] [facility] [address] [place] [address] Physician Turner Machine 08/15/23 documented as of this encounter
--- OUTSIDE RECORDS SUMMARY | 2024-12-04 07:24 | XMS_ITS | Encounter Summary ---
Author Organization [facility] Address [address] [place] [address] Care Team Providers Care Stars Analytical Lead Name Role Phone Ian Pollock MD Primary Care Provider Ian Pollock MD Primary Care Provider [phone] Ian Pollock MD Primary Care Provider [phone] Ian Pollock MD Primary Care Provider [phone] Katina Casiano DO Unavailable [phone] Xavi ACOSTA MD, Fred R Primary Care Provider + Katina Casiano DO Unavailable [phone] Tracey Ang PA Unavailable [phone] Belkis Angel HOME SERVICE DIRECTOR-MECHANICAL SYSTEMS CONTROL ENGINEER Primary Care Provider + Natalie Baum Primary Care Provider [phone] Reason for Visit * Reason Onset Date Comments Referral 12/13/2019 Encounter Details Date Type Department Care Team (Late st Contact Info) Description 12/13/2019 Telephone [facility] [address] [place] [address] Monica Tellez, HOME SERVICE DIRECTOR-MECHANICAL SYSTEMS CONTROL ENGINEER [address] [place] [address] Referral Social History Tobacco Use [...] Janice Conn RN - 12/19/2019 8:51 AM SIX SIGMA BLACK TRAINER Was able to speak with patient regarding his directive to call his insurance company for them to give him a listing of the Cardiologists in [place], and also tell him that he would be given to another PCP because Dr. Pollock will be going to very part-time in March, but patient apprised this TNs thathe had called for a more current appointment, and is to see Dr. Pollock today. SIGMA BLACK TRAINER * Telephone Encounter - Monica Tellez APRN-CNP - 12/16/2019 4:30 PM SIX SIGMA BLACK TRAINER [place] not [place] any beadworker [place]. He will need to call his insurance company for list of [place] beadworker. His appt was to be changed from Dr Pollock to a resident since Dr Pollock will be going to very apartment leasing specialist in March and should not have new patients. MARISOL Díaz SIGMA BLACK TRAINER * Telephone Encounter - Janice Conn RN - 12/13/2019 10:45 AM SIX SIGMA BLACK TRAINER Routing message to Dr Pollock SIGMA BLACK TRAINER * Telephone Encounter - Meenu Hidalgo - 12/13/2019 10:36 AM CST PT is calling and wanting to be referred to a beadworker on the [place] side. PT stats it wouldbe more convenient and easier for the med cab. PT CBN:[phone] SIGMA BLACK TRAINER documented in this encounter Plan of Treatment [...] on filedocumented in this encounter Care Teams Stars Analytical Lead Relationship Specialty Start Date End Date Ian Pollock MD PCP - General 12/13/19 05/25/20 Ian Pollock MD PCP - General 05/26/20 06/15/20 Ian Pollock MD [address] [facility] OF [facility] [place] [address] PCP - General 07/31/20 08/20/20 Ian Pollock MD [address] [facility] [place] [address] PCP - General 08/21/20 05/29/23 Jameel Hurley III, MD [address] [place] [id number] PCP - General Internal Medicine 06/05/23 08/28/23 Belkis Angel, HOME SERVICE DIRECTOR-MECHANICAL SYSTEMS CONTROL ENGINEER [address] [place] [id number] PCP - General Nurse Practitioner 08/29/23 05/05/24 Natalie Baum [address] [place] [address] PCP - General 05/06/24 Katina Casiano DO [address] DIV OF GEN INTERNAL MEDICINE [place], [place] Resident - PCP Internal Medicine 08/10/22 05/29/23 Katina Casiano DO [address] [facility] OF [facility] INTER[facility]IC[facility] [place], [place] Hospitalist 06/05/23 Tracey Ang PA [address] [facility] [address] [place] [address] Physician Vice President Of Manufacturing 08/15/23 documented as of this encounter
--- OUTSIDE RECORDS SUMMARY | 2024-12-04 07:24 | XMS_ITS | Encounter Summary ---
Author Organization [facility] Address [address] [place] [address] Care Team Providers Care Csm Consultant Name Role Phone Ian Pollock MD Primary Care Provider [phone] Katina Casiano DO Unavailable [phone] Xavi ACOSTA MD, Jameel Gaviria Primary Care Provider + Katina Casiano DO Unavailable [phone] Tracey Ang PA Unavailable [phone] Belkis Angel SKEIN WINDING OPERATOR-AIRCRAFT CABIN CLEANER Primary Care Provider + Natalie Baum Primary Care Provider [phone] Reason for Visit * Reason Onset Date Comments Cardiac Rehab 02/23/2022 Encounter Details Date Type Department Care Team (Late st Contact Info) Description 02/23/2022 Telephone [facility] [address] [place] [address] Rama Lagos, direct marketing executive Social History Tobacco Use Types Packs/Day Years [...] on filedocumented in this encounter Care Teams Csm Consultant Relationship Specialty Start Date End Date Ian Pollock MD [address] [facility] [address] [facility] OF [facility] [place] [address] PCP - General 08/21/20 05/29/23 Jameel Hurley III, MD [address] [facility] [address] [facility] [address] [facility] [place] [address] PCP - General Internal Medicine 06/05/23 08/28/23 Belkis Angel, SKEIN WINDING OPERATOR-AIRCRAFT CABIN CLEANER [address] [facility] 2nd [place] [address] PCP - General Nurse Practitioner 08/29/23 05/05/24 Natalie Baum [address] [place] [address] PCP - General 05/06/24 Katina Casiano DO [address] [facility] [address] [facility] OF [facility] INTERNAL MEDICINE [place], [place] Resident - PCP Internal Medicine 08/10/22 05/29/23 Katina Casiano DO [address] [facility] [address] [facility] OF [facility] INTERNAL MEDICINE [place], [place] Hospitalist 06/05/23 Tracey Ang PA [address] [facility] [address] [place] [address] Physician Software Clerk 08/15/23 documented as of this encounter
--- OUTSIDE RECORDS SUMMARY | 2024-12-04 07:24 | XMS_ITS | Encounter Summary ---
Author Organization [facility] Address [address] [place] [address] Care Team Providers Care Outside Sales Advertising Executive Name Role Phone Ian Pollock MD Primary Care Provider Katina Casiano DO Unavailable [phone] Xavi ACOSTA MD, Jameel Gaviria Primary Care Provider + Katina Casiano DO Unavailable [phone] Tracey Ang PA Unavailable [phone] Belkis Angel MACHINIST CLASS B-INSTRUCTIONAL SUPPORT TECHNICIAN Primary Care Provider + Natalie Baum Primary Care Provider [phone] Encounter Details Date Type Department Care Team (Late st Contact Info) Description 02/18/2022 Telephone [facility], Critical Care [facility] Sleep Medicine [address] [facility] [place] [id number] Agnieszka Haas MD [address] [place] [address] Social History Tobacco Use Types Packs/Day Years [...] review with him. Patient Call Back number: [phone] documented in this encounter Plan of Treatment [...] on filedocumented in this encounter Care Teams Outside Sales Advertising Executive Relationship Specialty Start Date End Date Ian Pollock MD [address] OF [facility] [place] [address] PCP - General 08/21/20 05/29/23 Jameel Hurley III, MD [address] OF [facility] [place] [address] PCP - General Internal Medicine 06/05/23 08/28/23 Belkis Angel, MACHINIST CLASS B-INSTRUCTIONAL SUPPORT TECHNICIAN [address] [facility] 2nd [place] [address] PCP - General Nurse Practitioner 08/29/23 05/05/24 Natalie Baum [address] [place] [address] PCP - General 05/06/24 Katina Casiano DO [address] [facility] [address] DIV OF GEN INTERNAL MEDICINE [place], [place] Resident - PCP Internal Medicine 08/10/22 05/29/23 Katina Casiano DO [address] [facility] [address] DIV OF GEN INTERNAL MEDICINE [place], [place] Hospitalist 06/05/23 Tracey Ang PA [address] [facility] [address] [place] [address] Physician Legal Cashier 08/15/23 documented as of this encounter
--- OUTSIDE RECORDS SUMMARY | 2024-12-04 07:24 | XMS_ITS | Referral Summary ---
Author Organization [facility] Address [address] [place] [address] Care Team Providers Care Elastic Yarn Twister Name Role Phone Matthew Mccabe MD Primary Care Prov ider Stan Meza MD Unavailable [phone] Encounters Date Type Department Care Team Description 11/29/2024 Telephone [facility] Oncology [address] [place] [phone] Sasha Hernandes RN 11/28/2024 Telephone [facility] Oncology [address] [place] [phone] Sasha Hernandes RN 11/28/2024 Orders Only [facility] Oncology [address] [place] [phone] Sasha Hernandes RN Primary cancer of left lower lobe of lung (HCC) (Primary Dx); Hypokalemia 11/27/2024 Orders Only [facility] Oncology [address] [place] [phone] Sasha Hernandes RN Primary cancer of left lower lobe of lung (HCC) (Primary Dx) 11/25/2024 Social Work [facility] Oncology [address] [place] [phone] Sarah Brunner LCSW 11/14/2024 Orders Only [facility] Oncology [address] [place] [phone] Sasha Hernandes RN 11/14/2024 Orders Only [facility] Oncology [address] [place] [phone] Sasha Hernandes RN Hypokalemia (Primary Dx) 11/14/2024 8:00 AM LINUX SYSTEM ADMINISTRATOR - 11/14/2024 11:59 PM LINUX SYSTEM ADMINISTRATOR Hospital Encounter [facility] [address] [place] [phone] Stan Meza MD Hypokalemia (Primary Dx); Primary cancer of left lower lobe of lung (HCC) Discharge Disposition: Discharge to home or self care 11/11/2024 Social Work [facility] Oncology [address] [place] [phone] Sarah Brunner, BOILERMAKER WELDER 11/11/2024 Documentation [facility] Advanced Medicine Radiation Oncology [address] [place] [address] [place] [address] Delmi Saxena, BOILERMAKER WELDER 11/11/2024 Telephone [facility] Advanced Medicine Radiation Oncology [address] [place] [phone] Jeffrey Ham MD 11/11/2024 Orders Only [facility] Oncology [address] [place] [phone] Sasha Hernandes RN Metastasis to bone (CMS/HCC) (HCC) (Primary Dx); Primary cancer of left lower lobe of lung (HCC) 11/07/2024 8:00 AM LINUX SYSTEM ADMINISTRATOR Lab [facility] - Lab Collection [address] [place] [address] Primary cancer of left lower lobe of lung (HCC); Metastasis to bone (CMS/HCC) (HCC) 11/07/2024 10:30 AM LINUX SYSTEM ADMINISTRATOR Infusion [facility] - Infusion [address] [place] [address] Primary cancer of left lower lobe of lung (HCC) (Primary Dx) 11/07/2024 8:15 AM LINUX SYSTEM ADMINISTRATOR Lab [facility] Oncology Lab [address] [place] [phone] Primary cancer of left lower lobe of lung (HCC) 11/07/2024 9:20 AM LINUX SYSTEM ADMINISTRATOR Office Visit [facility] Oncology [address] [place] [phone] Stan Meza MD Primary cancer of left lower lobe of lung (HCC) (Primary Dx); Metastasis to bone (CMS/HCC) (HCC) 11/06/2024 Orders Only [facility] Oncology [address] [place] [phone] Sasha Hernandes RN Primary cancer of left lower lobe of lung (HCC) (Primary Dx); Metastasis to bone (CMS/HCC) (HCC) 11/04/2024 Social Work [facility] Oncology [address] [place] [phone] Sarah Brunner, [facility] 10/29/2024 Social Work [facility] Oncology [address] [place] [phone] Carissa Long, [facility] 10/29/2024 Telephone [facility] Oncology [address] [place] [phone] Kelly Montes CMA 10/28/2024 Telephone [facility] Oncology [address] [place] [phone] Maddy Freire RN 10/25/2024 Telephone [facility] Oncology [address] [place] [phone] Sasha Hernandes RN 10/25/2024 2:15 PM LINUX SYSTEM ADMINISTRATOR - 10/25/2024 11:59 PM LINUX SYSTEM ADMINISTRATOR Hospital Encounter [facility] Radiology [facility] [address] [place] [address] Diagnosis unknown Discharge Disposition: Discharge to home or self care 10/24/2024 Telephone [facility] Nutrition Counseling 1 [place] [address] Dagmar Pickard, RD 10/24/2024 Documentation [facility] Oncology [address] [facility] Floor 8 [place] [address] Olimpia Parr, RMA 10/18/2024 Documentation [facility] Oncology [facility] Floor 5 [place] [address] Sarah Brunner, BOILERMAKER WELDER 10/17/2024 Telephone [facility] Nutrition Counseling 1 [place] [address] Dagmar Pickard, RD 10/17/2024 Orders Only [facility] Oncology [facility] Floor 5 [place] [address] Pool Hong, [facility] 10/15/2024 Documentation [facility] [place] [address] [address] [place] [phone] Gayatri Garza RN 10/14/2024 Social Work [facility] Oncology [facility] Floor 5 [place] [address] Sarah Brunner, BOILERMAKER WELDER 10/10/2024 Telephone [facility] Outpatient Health - Palliative Care [address] [facility] [place] [address] Mariah Altamirano, RN 10/03/2024 Telephone [facility] [address] [facility] for [facility] 11th [place] [address] [place] [address] Alexsandra Augustnie, 10/03/2024 7:30 AM LINUX SYSTEM ADMINISTRATOR Lab [facility] - Lab Collection [address] [facility] Floor 5 [place] [address] Primary cancer of left lower lobe of lung (HCC) 10/03/2024 8:30 AM LINUX SYSTEM ADMINISTRATOR Infusion [facility] - Infusion [address] [facility] Floor 5 [place] [address] Primary cancer of left lower lobe of lung (HCC) (Primary Dx) 09/30/2024 Social Work [facility] Oncology [facility] Floor 5 [place] [address] Sarah Brunner, BOILERMAKER WELDER 09/25/2024 9:00 AM LINUX SYSTEM ADMINISTRATOR Infusion [facility] - Infusion [address] [facility] Floor 5 [place] [address] Primary cancer of left lower lobe of lung (HCC) (Primary Dx) 09/25/2024 7:00 AM LINUX SYSTEM ADMINISTRATOR Lab [facility] - Lab Collection [address] [facility] Floor 5 [place] [address] Primary cancer of left lower lobe of lung (HCC) 09/25/2024 8:00 AM LINUX SYSTEM ADMINISTRATOR Office Visit [facility] Oncology [address] [place] [address] 5 [place] [address] Stan Meza MD Primary cancer of left lower lobe of lung (HCC) (Primary Dx) 09/23/2024 Documentation [facility] Pall[facility] Care [address] [place] [phone] Gayatri Garza RN 09/20/2024 Documentation [facility] Oncology [address] [place] [address] 5 [place] [address] Sarah Brunner, BOILERMAKER WELDER 09/17/2024 Social Work [facility] Oncology [address] [place] [address] Floor 5 [place] [address] Sarah Brunner, BOILERMAKER WELDER 09/17/2024 Documentation [facility] Outpatient Health - Palliative Care [address] [facility] [place] [address] Mary Ellen Mckeon MD 09/17/2024 11:19 AM LINUX SYSTEM ADMINISTRATOR - 09/17/2024 11:59 PM LINUX SYSTEM ADMINISTRATOR Hospital Encounter [facility] Radiology [facility] [address] [place] [address] Discharge Disposition: Discharge to home or self care 09/16/2024 Orders Only [facility] Oncology [address] [place] [address] 5 [place] [address] Sasha Hernandes RN Primary cancer of left lower lobe of lung (HCC) (Primary Dx) 09/11/2024 Telephone [facility] for Outpatient Health - Palliative Care [address] [place] [address] [place] [address] Mariah Altamirano, ALYX 09/10/2024 Telephone [facility] - Palliative Care [address] [place] [address] Mariah Altamirano, ALYX 09/09/2024 Telephone [facility] - Palliative Care [address] [place] [address] Mariah Altamirano, ALYX 09/06/2024 Telephone [facility] Oncology [address] [place] [phone] Sasha Hernandes RN 09/05/2024 7:15 AM LINUX SYSTEM ADMINISTRATOR Lab [facility] - Lab Collection [address] [place] [address] Primary cancer of left lower lobe of lung (HCC) 09/05/2024 9:30 AM LINUX SYSTEM ADMINISTRATOR Infusion [facility] - Infusion [address] [place] [address] Primary cancer of left lower lobe of lung (HCC) (Primary Dx) 09/05/2024 7:30 AM LINUX SYSTEM ADMINISTRATOR Lab [facility] Oncology Lab [address] [place] [phone] Primary cancer of left lower lobe of lung (HCC) 09/05/2024 8:40 AM LINUX SYSTEM ADMINISTRATOR Office Visit [facility] Oncology [address] [place] [phone] Stan Meza MD Primary cancer of left lower lobe of lung (HCC) (Primary Dx) 09/04/2024 Social Work [facility] Oncology [address] [place] [phone] Sarah Brunner, LAURIE from Last 3 Months Allergies Active Allergy Reactions Criticality Noted Date Comments Lisinopril Anaphylaxis,Unknown High 03/27/2015 Penicillins Anaphylaxis,Swelling,Unknown High 2011 Medications ziprasidone (GEODON) 80 mg capsule Take 1 capsule (80 mg total) by mouth 2 (two) times a day with meals Active busPIRone (BUSPAR) 7.5 mg tablet Take 1 tablet (7.5 mg total) by mouth 2 (two) times a day Activ e atorvastatin (LIPITOR) 40 mg tablet Take 1 [...] 160-4.5 mcg/actuation inhaler Inhale 2 puffs daily 08/29/20 23 Active cholecalcifero l (VITAMIN D-3) 2000 unit capsule 02/21/20 24 Active lamoTRIgine (LaMICtal) 100 mg tablet Take 1 tablet (100 mg total) by mouth 2 (two) times a day Activ e latanoprost (XALATAN) 0.005 % ophthalmic solution 1 [...] 07/17/20 24 Active ondansetron (ZOFRAN) 8 mg tabletIndicati ons:Primary cancer of left lower lobe of lung (HCC),Prophyla xis for chemotherapy-i nduced neutropenia Take 1 tablet (8 mg total) by mouth every 8 (eight) hours as needed for nausea or vomiting Use if prochlorperazine does not stop nausea 24 tablet 3 08/15/20 24 Active senna-docusate (PERICOLACE) 8.6-50 mgIndications: constipation Take 2 tablets by mouth daily 60 tablet 3 08/15/20 24 Active dexAMETHasone (DECADRON) 4 mg tabletIndicati ons:Primary cancer of left lower lobe of lung [...] EVERY 12 HOURS FOR 7 DAYS 09/15/20 24 Active doxycycline 100 mg tablet TAKE 1 TABLET BY MOUTH TWICE A DAY FOR 7 DAYS 09/15/20 24 Active hydrOXYzine (VISTARIL) 100 mg capsule TAKE 1 CAPSULE (100MG) BY MOUTH EVERY 8 HOURS IF NEEDED FOR 30 DAYS 09/11/20 24 Active LORazepam (ATIVAN) 0.5 mg tablet daily Active senna (SENOKOT) 8.6 mg tablet daily Active traMADoL (ULTRAM) 50 mg tablet every 12 hours Activ e food supplemt, lactose-reduce d 0.05 gram- 1.5 kcal/mL liquid Take 1 Bottle by mouth daily 5688 mL 2 09/25/20 24 Active calcium carbonate-amando min D3 1,250 mg (500 mg elemental)-400 unit tablet Take 1 tablet by mouth music assistant before breakfast 30 tablet 3 09/25/20 24 Active ipratropium-al buteroL (DUO-NEB) 0.5-2.5 mg/3 mL nebulizer solution INHALE 3 ML VIA NEBULIZER FOUR TIMES DAILY NEEDED FOR SHORTNESS OF BREATH OR WHEEZING 10/18/20 24 Active morphine ER (MS CONTIN) 30 mg 12 hr tablet Take 1 tablet (30 mg total) by mouth every 12 (twelve) hours 60 tablet 11/07/19 25 Active oxyCODONE (ROXICODONE) 5 mg immediate release tabletIndicati ons:Pain,cance r related pain Take 1-2 tablets (5-10 mg total) by mouth every 4 (four) hours as needed for pain 120 tablet 11/07/19 25 Active potassium chloride ER (KLOR-CON) 20 mEq CR tablet Take 1 tablet (20 mEq total) by mouth daily 14 tablet 11/14/19 25 Active morphine ER (MS CONTIN) 30 mg 12 hr tablet Take 1 tablet (30 mg total) by mouth every 12 (twelve) hours 60 tablet 09/25/20 24 025 Discontin ued(Reord er) oxyCODONE (ROXICODONE) 5 mg immediate release tabletIndicati ons:Pain,cance r related pain Take 1-2 tablets (5-10 mg total) by mouth every 4 (four) hours as needed for pain 120 tablet 09/25/20 24 025 Discontin ued(Reord er) Active Problems Problem Noted Date Diagnosed Date Hypokalemia 11/14/2024 Metastasis to bone (CMS/HCC) 11/06/2024 Cancer related pain 08/15/2024 Prophylaxis for chemotherapy-induced [...] Preservative Free, Intramuscular 09/29/2023,08/04/2020,07/11/2019,08/09,11/02/2015 Influenza, Unspecified 08/13/2020 [employer] ([employer]) SARS-CoV-2 Vaccination 01/17/2021 Pneumococcal Conjugate Pcv20 [...] on file Legal Sex Male 6:04 PM LINUX SYSTEM ADMINISTRATOR Gender Identity Not on file Sexual Orientation Not on file Last Filed Vital Signs Vital Sign Reading Time Taken Comments Blood Pressure 136/80 11/14/2024 8:16 AM LINUX SYSTEM ADMINISTRATOR Pulse 80 11/14/2024 8:16 AM LINUX SYSTEM ADMINISTRATOR Temperature 36.4 ??C (97.5 ??F) 11/14/2024 8:16 AM CS T Respiratory Rate 18 11/14/2024 8:16 AM LINUX SYSTEM ADMINISTRATOR Oxygen Saturation 98% 11/14/2024 8:16 AM LINUX SYSTEM ADMINISTRATOR Inhaled Oxygen Concentration - - Weight 89.7 kg (197 lb 12.8 oz) 11/14/2024 8:25 AM LINUX SYSTEM ADMINISTRATOR Height 167.6 cm (5' 6 ) 08/29/2024 12:0 7 PM CDT Body Mass Index 31.93 08/29/2024 12:07 PM CDT Plan of Treatment Not on file Procedures Procedure Name Priority Date/Time Associated Diagnosis Comments EGFR STAT 11/14/2024 8:52 AM LINUX SYSTEM ADMINISTRATOR Primary cancer of left lower lobe of lung (HCC) COMPREHENSIVE METABOLIC PANEL STAT 11/14/2024 8:52 AM LINUX SYSTEM ADMINISTRATOR Primary cancer of left lower lobe of lung (HCC) DIFFERENTIAL AUTO STAT 11/14/2024 8:3 8 AM LINUX SYSTEM ADMINISTRATOR Primary cancer of left lower lobe of lung (HCC) CBC WITH AUTO DIFFERENTIAL STAT 11/14/2024 8:38 AM LINUX SYSTEM ADMINISTRATOR Primary cancer of left lower lobe of lung (HCC) EGFR STAT 11/07/2024 8:14 AM LINUX SYSTEM ADMINISTRATOR Primary cancer of left lower lobe of lung (HCC) DIFFERENTIAL AUTO STAT 11/07/2024 8:1 4 AM LINUX SYSTEM ADMINISTRATOR Primary cancer of left lower lobe of lung (HCC) MAGNESIUM STAT 11/07/2024 8:14 AM LINUX SYSTEM ADMINISTRATOR Primary cancer of left lower lobe of lung (HCC) Metastasis to bone (CMS/HCC) (HCC) PHOSPHORUS STAT 11/07/2024 8:14 AM LINUX SYSTEM ADMINISTRATOR Primary cancer of left lower lobe of lung (HCC) Metastasis to bone (CMS/HCC) (HCC) VITAMIN D 25 HYDROXY Routine 11/07/2024 8:14 AM LINUX SYSTEM ADMINISTRATOR Primary cancer of left lower lobe of lung (HCC) Metastasis to bone (CMS/HCC) (HCC) CBC WITH AUTO DIFFERENTIAL STAT 11/07/2024 8:14 AM LINUX SYSTEM ADMINISTRATOR Primary cancer of left lower lobe of lung (HCC) COMPREHENSIVE METABOLIC PANEL STAT 11/07/2024 8:14 AM LINUX SYSTEM ADMINISTRATOR Primary cancer of left lower lobe of lung (HCC) CT BODY OUTSIDE CONSULT Routine 10/25/2024 2:15 PM LINUX SYSTEM ADMINISTRATOR Diagnosis unknown DIFFERENTIAL AUTO Routine 10/03/2024 7:3 4 AM LINUX SYSTEM ADMINISTRATOR Primary cancer of left lower lobe of lung (HCC) CBC WITH AUTO DIFFERENTIAL Routine 10/03/2024 7:34 AM LINUX SYSTEM ADMINISTRATOR Primary cancer of left lower lobe of lung (HCC) EGFR STAT 09/25/2024 7:43 AM LINUX SYSTEM ADMINISTRATOR Primary cancer of left lower lobe of lung (HCC) DIFFERENTIAL AUTO STAT 09/25/2024 7:4 3 AM LINUX SYSTEM ADMINISTRATOR Primary cancer of left lower lobe of lung (HCC) CBC WITH AUTO DIFFERENTIAL STAT 09/25/2024 7:43 AM LINUX SYSTEM ADMINISTRATOR Primary cancer of left lower lobe of lung (HCC) COMPREHENSIVE METABOLIC PANEL STAT 09/25/2024 7:43 AM LINUX SYSTEM ADMINISTRATOR Primary cancer of left lower lobe of lung (HCC) CT BODY OUTSIDE REFERENCE Routine 09/17/2024 11:19 AM LINUX SYSTEM ADMINISTRATOR DIFFERENTIAL AUTO Routine 09/05/2024 8:0 3 AM LINUX SYSTEM ADMINISTRATOR Primary cancer of left lower lobe of lung (HCC) CBC WITH AUTO DIFFERENTIAL Routine 09/05/2024 8:03 AM LINUX SYSTEM ADMINISTRATOR Primary cancer of left lower lobe of lung (HCC) EGFR STAT 09/05/2024 7:51 AM LINUX SYSTEM ADMINISTRATOR Primary cancer of left lower lobe of lung (HCC) COMPREHENSIVE METABOLIC PANEL STAT 09/05/2024 7:51 AM LINUX SYSTEM ADMINISTRATOR Primary cancer of left lower lobe of lung (HCC) from Last 3 Months Results * eGFR (11/14/2024 8:52 AM LINUX SYSTEM ADMINISTRATOR) eGFR >90 >=60 mL/min/1. 73 m2 Comment: [...] interpretive data was last reviewed 2021. Blood 11/14/2024 8:52 AM LINUX SYSTEM ADMINISTRATOR 11/14/2024 8:59 AM LINUX SYSTEM ADMINISTRATOR us Stan Meza MD LAB BLOOD ORDERABLES Yolette banda Result Performing Organization Address City/State/[facility] Co ri Phone Number [facility] Department [place] [address] * (ABNORMAL) Comprehensive metabolic panel (11/14/2024 8:52 AM LINUX SYSTEM ADMINISTRATOR) Pathologist [facility] Sodium 139 135 - 145 mmol/L Potassium, pl 3.1(L) 3.3 - 4.9 mmol/L [facility] Chloride 101 97 - 110 mmol/L [facility] CO2 31 22 - 32 mmol/L [facility] Anion gap 7 2 - 15 mmol/L [facility] BUN 4(L) 6 - 25 mg/dL [facility] Creatinine 0.64(L) 0.80 - 1.30 mg/dL [facility] Glucose 113 70 - 199 mg/dL [facility] [...] interpretive data was last revised 2022. Calcium 9.0 8.5 - 10.3 mg/dL [facility] Bilirubin, total 0.3 0.1 - 1.2 mg/dL [facility] Protein, pl 6.9 6.5 - 8.5 g/dL [facility] Albumin 3.9 3.5 - 5.0 g/dL [facility] Alk phos 128 40 - 130 Units/L [facility] ALT 9 7 - 55 Units/L [facility] AST 16 10 - 50 Units/L [facility] Blood 11/14/2024 8:52 AM LINUX SYSTEM ADMINISTRATOR 11/14/2024 8:59 AM LINUX SYSTEM ADMINISTRATOR us Stan Meza MD LAB BLOOD ORDERABLES Yolette l Result [facility] Department [place] [address] * (ABNORMAL) Differential, auto (11/14/2024 8:38 AM LINUX SYSTEM ADMINISTRATOR) Neutrophil abs 2.4 1.5 - 6.5 K/cumm Imm gran abs 0.0 0.0 - 0.1 K/cumm [facility] Lymphocyte abs 0.6(L) 0.8 - 3.3 K/cumm [facility] Monocyte abs 0.2 0.2 - 0.8 K/cumm [facility] Eosinophil abs 0.1 0.0 - 0.5 K/cumm [facility] Basophil abs 0.1 0.0 - 0.1 K/cumm [facility] Neutrophil pct 70.0 % [facility] Comment: Interpretive Data Percent cell count reference ranges are not reported, since discordance with absolute values may lead to misinterpretation of CBC data. Current Interpretive Data was last revised on 2018. Imm gran pct 0.9 % [facility] Comment: Interpretive Data Percent cell count reference ranges are not reported, since discordance with absolute values may lead to misinterpretation of CBC data. Current Interpretive Data was last revised on 2018. Lymphocyte pct 18.5 % [facility] Comment: Interpretive Data Percent cell count reference ranges are not reported, since discordance with absolute values may lead to misinterpretation of CBC data. Current Interpretive Data was last revised on 2018. Monocyte pct 5.6 % [facility] Comment: Interpretive Data Percent cell count reference ranges are not reported, since discordance with absolute values may lead to misinterpretation of CBC data. Current Interpretive Data was last revised on 2018. Eosinophil pct 3.5 % [facility] Comment: Interpretive Data Percent cell count reference ranges are not reported, since discordance with absolute values may lead to misinterpretation of CBC data. Current Interpretive Data was last revised on 2018. Basophil pct 1.5 % [facility] Comment: Interpretive Data Percent cell count reference ranges are not reported, since discordance with absolute values may lead to misinterpretation of CBC data. Current Interpretive Data was last revised on 2018. Blood 11/14/2024 8:38 AM LINUX SYSTEM ADMINISTRATOR 11/14/2024 8:59 AM LINUX SYSTEM ADMINISTRATOR us Stan Meza MD LAB BLOOD ORDERABLES Yolette l Result [facility] Department [place] [address] * (ABNORMAL) CBC with auto differential (11/14/2024 8:38 AM LINUX SYSTEM ADMINISTRATOR) WBC 3.4(L) 3.8 - 9.9 K/cumm Hgb 9.3(L) 13.0 - 17.5 g/dL [facility] Hct 28.9(L) 38.9 - 50.3 % [facility] Plt 196 150 - 400 K/cumm [facility] MPV 10.5 9.1 - 12.3 fL [facility] RBC 3.34(L) 4.30 - 5.80 M/cumm [facility] MCV 86.5 81.3 - 96.4 fL [facility] MCH 27.8 27.1 - 33.3 pg [facility] MCHC 32.2(L) 32.3 - 35.7 g/dL [facility] RDW CV 18.5(H) 11.1 - 14.9 % [facility] RDW SD 59.2(H) 35.7 - 48.1 fL [facility] NRBC abs 0.00 0.00 - 0.01 K/cumm [facility] Blood 11/14/2024 8:38 AM LINUX SYSTEM ADMINISTRATOR 11/14/2024 8:59 AM LINUX SYSTEM ADMINISTRATOR us Stan Meza MD LAB BLOOD ORDERABLES Yolette banda Result [facility] Department [place] [address] * eGFR (11/07/2024 8:14 AM LINUX SYSTEM ADMINISTRATOR) eGFR >90 >=60 mL/min/1. 73 m2 Comment: [...] interpretive data was last reviewed 2021. Blood 11/07/2024 8:14 AM LINUX SYSTEM ADMINISTRATOR 11/07/2024 8:18 AM LINUX SYSTEM ADMINISTRATOR us Stan Meza MD LAB BLOOD ORDERABLES Yolette banda Result [facility] Department [place] [address] * Differential, auto (11/07/2024 8:14 AM LINUX SYSTEM ADMINISTRATOR) Neutrophil abs 3.0 1.5 - 6.5 K/cumm Comment:Testing performed by : [facility], [address] [place], [place] [phone] Lymphocyte abs 0.8 0.8 - 3.3 K/cumm [facility] Comment:Testing performed by : [facility], [address] [place] [phone] Monocyte abs 0.7 0.2 - 0.8 K/cumm [facility] Comment:Testing performed by : [facility], [address] [place] [phone] Eosinophil abs 0.3 0.0 - 0.5 K/cumm [facility] Comment:Testing performed by : [facility], [address] [place] [phone] Basophil abs 0.1 0.0 - 0.1 K/cumm [facility] Comment:Testing performed by : [facility], [address] [place] [phone] Neutrophil pct 60.9 % [facility] Comment: Interpretive Data Percent cell count reference ranges are not reported, since discordance with absolute values may lead to misinterpretation of CBC data. Current Interpretive Data was last revised on 2018. Testing performed by: [facility], [address] [place] [phone] Lymphocyte pct 17.4 % [facility] Comment: Interpretive Data Percent cell count reference ranges are not reported, since discordance with absolute values may lead to misinterpretation of CBC data. Current Interpretive Data was last revised on 2018. Testing performed by: [facility], [address] [place] [phone] Monocyte pct 14.4 % [facility] Comment: Interpretive Data Percent cell count reference ranges are not reported, since discordance with absolute values may lead to misinterpretation of CBC data. Current Interpretive Data was last revised on 2018. Testing performed by: [facility], [address] [place] [phone] Eosinophil pct 6.2 % [facility] Comment: Interpretive Data Percent cell count reference ranges are not reported, since discordance with absolute values may lead to misinterpretation of CBC data. Current Interpretive Data was last revised on 2018. Testing performed by: [facility], [address] [place] [phone] Basophil pct 1.1 % [facility] Comment: Interpretive Data Percent cell count reference ranges are not reported, since discordance with absolute values may lead to misinterpretation of CBC data. Current Interpretive Data was last revised on 2018. Testing performed by: [facility], [address] [place] [phone] Blood 11/07/2024 8:14 AM LINUX SYSTEM ADMINISTRATOR 11/07/2024 8:16 AM LINUX SYSTEM ADMINISTRATOR us Stan Meza MD LAB BLOOD ORDERABLES Yolette l Result [facility] Department [place] [address] * (ABNORMAL) CBC with auto differential (11/07/2024 8:14 AM LINUX SYSTEM ADMINISTRATOR) WBC 4.9 3.8 - 9.9 K/cumm Comment:Testing performed by : [facility], [address] [place] [address] Hgb 9.8(L) 13.0 - 17.5 g/dL [facility] Comment:Testing performed by : [facility], [address] [place] [address] Hct 30.1(L) 38.9 - 50.3 % [facility] Comment:Testing performed by : [facility], [address] [place] [address] Plt 232 150 - 400 K/cumm [facility] Comment:Testing performed by : [facility], [address] [place] [address] MPV 6.8 6.8 - 10.4 fL [facility] Comment:Testing performed by : [facility], [address] [place] [address] RBC 3.47(L) 4.30 - 5.80 M/cumm [facility] Comment:Testing performed by : [facility], [address] [place] [address] MCV 86.6 81.3 - 96.4 fL [facility] Comment:Testing performed by : [facility], [address] [place] [address] MCH 28.3 27.1 - 33.3 pg [facility] Comment:Testing performed by : [facility], [address] [place] [address] MCHC 32.6 32.3 - 35.7 g/dL [facility] Comment:Testing performed by : [facility], [address] [place] [address] RDW CV 21.1(H) 11.1 - 14.9 % [facility] Comment:Testing performed by : [facility], [address] [place] [phone] NRBC abs 0.00 0.00 - 0.01 K/cumm [facility] Comment:Testing performed by : [facility], [address] [place] [phone] Blood 11/07/2024 8:14 AM LINUX SYSTEM ADMINISTRATOR 11/07/2024 8:16 AM LINUX SYSTEM ADMINISTRATOR us Stan Meza MD LAB BLOOD ORDERABLES Yolette l Result Performing Organization Address City/State/[facility] Co de Phone Number [facility] [place] [address] * (ABNORMAL) Vitamin D 25 hydroxy (11/07/2024 8:14 AM LINUX SYSTEM ADMINISTRATOR) Pathologist [facility] Vitamin D 25-OH 23(L) 30 - 80 ng/mL Blood 11/07/2024 8:14 AM LINUX SYSTEM ADMINISTRATOR 11/07/2024 8:18 AM LINUX SYSTEM ADMINISTRATOR us Stan Meza MD LAB BLOOD ORDERABLES Yolette l Result Performing Organization Address City/[facility] Co de Phone Number [facility] Department [place] [address] * Phosphorus (11/07/2024 8:14 AM LINUX SYSTEM ADMINISTRATOR) Pathologist [facility] Phosphorus, pl 3.4 2.3 - 4.5 mg/dL Blood 11/07/2024 8:14 AM LINUX SYSTEM ADMINISTRATOR 11/07/2024 8:18 AM LINUX SYSTEM ADMINISTRATOR us Stan Meza MD LAB BLOOD ORDERABLES Yolette l Result Performing Organization Address City/[facility] Co de Phone Number [facility] [place] [address] * Magnesium (11/07/2024 8:14 AM LINUX SYSTEM ADMINISTRATOR) Magnesium 1.7 1.4 - 2.5 mg/dL Blood 11/07/2024 8:14 AM LINUX SYSTEM ADMINISTRATOR 11/07/2024 8:18 AM LINUX SYSTEM ADMINISTRATOR us Stan Meza MD LAB BLOOD ORDERABLES Yolette banda Result [facility] Department [place] [address] * (ABNORMAL) Comprehensive metabolic panel (11/07/2024 8:14 AM LINUX SYSTEM ADMINISTRATOR) Sodium 138 135 - 145 mmol/L Potassium, pl 3.5 3.3 - 4.9 mmol/L [facility] Chloride 101 97 - 110 mmol/L [facility] CO2 28 22 - 32 mmol/L [facility] Anion gap 9 2 - 15 mmol/L [facility] BUN 4(L) 6 - 25 mg/dL [facility] Creatinine 0.66(L) 0.80 - 1.30 mg/dL [facility] Glucose 97 70 - 199 mg/dL [facility] [...] 2022. Calcium 9.3 8.5 - 10.3 mg/dL [facility] Bilirubin, total 0.3 0.1 - 1.2 mg/dL [facility] Protein, pl 6.6 6.5 - 8.5 g/dL [facility] Albumin 3.6 3.5 - 5.0 g/dL [facility] Alk phos 123 40 - 130 Units/L [facility] ALT 7 7 - 55 Units/L [facility] AST 14 10 - 50 Units/L [facility] Blood 11/07/2024 8:14 AM LINUX SYSTEM ADMINISTRATOR 11/07/2024 8:18 AM LINUX SYSTEM ADMINISTRATOR us Stan Meza MD LAB BLOOD ORDERABLES Yolette l Result [facility] Department [place] [address] * CT Body Outside Consult (10/25/2024 2:15 PM LINUX SYSTEM ADMINISTRATOR) Anatomical Region Laterality Modality Body N/A Computed Tomogra phy 10/27/2024 7:03 PM LINUX SYSTEM ADMINISTRATOR Impressions 10/27/2024 7:03 PM LINUX SYSTEM ADMINISTRATOR 1. ??Marked response to therapy in the [...] images may or may not represent the [place] source data set and thus may contain changes that may lower the accuracy of this second-opinion interpretation. Electronically signed by: Wally Garg M.D. Narrative 10/27/2024 7:03 PM LINUX SYSTEM ADMINISTRATOR EXAMINATION: RADIOLOGY CONSULTATION ON OUTSIDE IMAGING STUDY STUDY INITIALLY PERFORMED: 10/23/2024 at [facility]. TYPE OF STUDY: Multiple CT images of [...] IMAGING STUDY STUDY INITIALLY PERFORMED: 10/23/2024 at [facility]. TYPE OF STUDY: Multiple CT images of [...] images may or may not represent the [place] source data set and thus may contain changes that may lower the accuracy of this second-opinion interpretation. Electronically signed by: Wally Garg M.D. us Stan Meza MD IMG CT PROCEDURES Final R esult * Differential, auto (10/03/2024 7:34 AM LINUX SYSTEM ADMINISTRATOR) Neutrophil abs 2.5 1.5 - 6.5 K/cumm Comment:Testing performed by : [facility], [address] [place], [place] [phone] Lymphocyte abs 0.8 0.8 - 3.3 K/cumm [facility] Comment:Testing performed by : [facility], [address] [place] [phone] Monocyte abs 0.4 0.2 - 0.8 K/cumm [facility] Comment:Testing performed by : [facility], [address] [place] [phone] Eosinophil abs 0.1 0.0 - 0.5 K/cumm [facility] Comment:Testing performed by : [facility], [address] [place] [phone] Basophil abs 0.0 0.0 - 0.1 K/cumm [facility] Comment:Testing performed by : [facility], [address] [place] [phone] Neutrophil pct 65.4 % [facility] Comment: Interpretive Data Percent cell count reference ranges are not reported, since discordance with absolute values may lead to misinterpretation of CBC data. Current Interpretive Data was last revised on 2018. Testing performed by: [facility], [address] [place] [phone] Lymphocyte pct 21.8 % [facility] Comment: Interpretive Data Percent cell count reference ranges are not reported, since discordance with absolute values may lead to misinterpretation of CBC data. Current Interpretive Data was last revised on 2018. Testing performed by: [facility], [address] [place] [phone] Monocyte pct 10.8 % [facility] Comment: Interpretive Data Percent cell count reference ranges are not reported, since discordance with absolute values may lead to misinterpretation of CBC data. Current Interpretive Data was last revised on 2018. Testing performed by: [facility], [address] [place] [phone] Eosinophil pct 1.8 % [facility] Comment: Interpretive Data Percent cell count reference ranges are not reported, since discordance with absolute values may lead to misinterpretation of CBC data. Current Interpretive Data was last revised on 2018. Testing performed by: [facility], [address] [place] [phone] Basophil pct 0.2 % [facility] Comment: Interpretive Data Percent cell count reference ranges are not reported, since discordance with absolute values may lead to misinterpretation of CBC data. Current Interpretive Data was last revised on 2018. Testing performed by: [facility], [address] [place] [phone] Blood 10/03/2024 7:34 AM LINUX SYSTEM ADMINISTRATOR 10/03/2024 7:37 AM LINUX SYSTEM ADMINISTRATOR us Stan Meza MD LAB BLOOD ORDERABLES Yolette l Result [facility] Department [place] [address] * (ABNORMAL) CBC with auto differential (10/03/2024 7:34 AM LINUX SYSTEM ADMINISTRATOR) WBC 3.8 3.8 - 9.9 K/cumm Comment:Testing performed by : [facility], [address] [place] [address] Hgb 9.0(L) 13.0 - 17.5 g/dL [facility] Comment:Testing performed by : [facility], [address] [place] [address] Hct 27.9(L) 38.9 - 50.3 % [facility] Comment:Testing performed by : [facility], [address] [place] [address] Plt 252 150 - 400 K/cumm [facility] Comment:Testing performed by : [facility], [address] [place] [address] MPV 6.8 6.8 - 10.4 fL [facility] Comment:Testing performed by : [facility], [address] [place] [address] RBC 3.40(L) 4.30 - 5.80 M/cumm [facility] Comment:Testing performed by : [facility], [address] [place] [address] MCV 82.0 81.3 - 96.4 fL [facility] Comment:Testing performed by : [facility], [address] [place] [address] MCH 26.6(L) 27.1 - 33.3 pg [facility] Comment:Testing performed by : [facility], [address] [place] [address] MCHC 32.4 32.3 - 35.7 g/dL [facility] Comment:Testing performed by : [facility], [address] [place] [address] RDW CV 17.7(H) 11.1 - 14.9 % [facility] Comment:Testing performed by : [facility], [address] [place] [address] [place] [phone] NRBC abs 0.00 0.00 - 0.01 K/cumm [facility] Comment:Testing performed by : [facility], [address] [place] [address] Blood 10/03/2024 7:34 AM LINUX SYSTEM ADMINISTRATOR 10/03/2024 7:37 AM LINUX SYSTEM ADMINISTRATOR us Stan Meza MD LAB BLOOD ORDERABLES Yolette banda Result [facility] Department [place] [address] * eGFR (09/25/2024 7:43 AM LINUX SYSTEM ADMINISTRATOR) eGFR >90 >=60 mL/min/1. 73 m2 Comment: [...] last reviewed 2021. Blood 09/25/2024 7:43 AM LINUX SYSTEM ADMINISTRATOR 09/25/2024 7:51 AM LINUX SYSTEM ADMINISTRATOR us Stan Meza MD LAB BLOOD ORDERABLES Yolette banda Result [facility] Department [place] [address] * (ABNORMAL) Differential, auto (09/25/2024 7:43 AM LINUX SYSTEM ADMINISTRATOR) Neutrophil abs 4.1 1.5 - 6.5 K/cumm Comment:Testing performed by : [facility], [address] [place] [address] Lymphocyte abs 0.8 0.8 - 3.3 K/cumm [facility] Comment:Testing performed by : [facility], [address] [place], [place] [phone] Monocyte abs 0.9(H) 0.2 - 0.8 K/cumm [facility] Comment:Testing performed by : [facility], [address] [place] [phone] Eosinophil abs 0.1 0.0 - 0.5 K/cumm [facility] Comment:Testing performed by : [facility], [address] [place] [phone] Basophil abs 0.1 0.0 - 0.1 K/cumm [facility] Comment:Testing performed by : [facility], [address] [place] [phone] Neutrophil pct 69.0 % [facility] Comment: Interpretive Data Percent cell count reference ranges are not reported, since discordance with absolute values may lead to misinterpretation of CBC data. Current Interpretive Data was last revised on 2018. Testing performed by: [facility], [address] [place] [phone] Lymphocyte pct 13.4 % [facility] Comment: Interpretive Data Percent cell count reference ranges are not reported, since discordance with absolute values may lead to misinterpretation of CBC data. Current Interpretive Data was last revised on 2018. Testing performed by: [facility], [address] [place] [phone] Monocyte pct 15.3 % [facility] Comment: Interpretive Data Percent cell count reference ranges are not reported, since discordance with absolute values may lead to misinterpretation of CBC data. Current Interpretive Data was last revised on 2018. Testing performed by: [facility], [address] [place], [place] [phone] Eosinophil pct 1.3 % [facility] Comment: Interpretive Data Percent cell count reference ranges are not reported, since discordance with absolute values may lead to misinterpretation of CBC data. Current Interpretive Data was last revised on 2018. Testing performed by: [facility], [address] [place], [place] [phone] Basophil pct 1.0 % [facility] Comment: Interpretive Data Percent cell count reference ranges are not reported, since discordance with absolute values may lead to misinterpretation of CBC data. Current Interpretive Data was last revised on 2018. Testing performed by: [facility], [address] [place] [address] Blood 09/25/2024 7:43 AM LINUX SYSTEM ADMINISTRATOR 09/25/2024 7:48 AM LINUX SYSTEM ADMINISTRATOR us Stan Meza MD LAB BLOOD ORDERABLES Yolette l Result [facility] Department [place] [address] * (ABNORMAL) CBC with auto differential (09/25/2024 7:43 AM LINUX SYSTEM ADMINISTRATOR) WBC 5.9 3.8 - 9.9 K/cumm Comment:Testing performed by : [facility], [address] [place] [address] Hgb 9.7(L) 13.0 - 17.5 g/dL [facility] Comment:Testing performed by : [facility], [address] [place] [address] Hct 30.5(L) 38.9 - 50.3 % [facility] Comment:Testing performed by : [facility], [address] [place] [address] Plt 350 150 - 400 K/cumm [facility] Comment:Testing performed by : [facility], [address] [place] [address] MPV 6.5(L) 6.8 - 10.4 fL [facility] Comment:Testing performed by : [facility], [address] [place] [address] RBC 3.72(L) 4.30 - 5.80 M/cumm [facility] Comment:Testing performed by : [facility], [address] [place] [address] MCV 82.1 81.3 - 96.4 fL [facility] Comment:Testing performed by : [facility], [address] [place] [address] MCH 26.1(L) 27.1 - 33.3 pg [facility] Comment:Testing performed by : [facility], [address] [place] [address] MCHC 31.8(L) 32.3 - 35.7 g/dL [facility] Comment:Testing performed by : [facility], [address] [place] [address] RDW CV 17.1(H) 11.1 - 14.9 % [facility] Comment:Testing performed by : [facility], [address] [place] [address] NRBC abs 0.00 0.00 - 0.01 K/cumm [facility] Comment:Testing performed by : [facility], [address] [place] [address] Blood 09/25/2024 7:43 AM LINUX SYSTEM ADMINISTRATOR 09/25/2024 7:48 AM LINUX SYSTEM ADMINISTRATOR Stan Meza MD LAB BLOOD ORDERABLES Yolette l Result [facility] Department [place] [address] * (ABNORMAL) Comprehensive metabolic panel (09/25/2024 7:43 AM LINUX SYSTEM ADMINISTRATOR) Sodium 135 135 - 145 mmol/L Potassium, pl 4.2 3.3 - 4.9 mmol/L [facility] Chloride 98 97 - 110 mmol/L [facility] CO2 30 22 - 32 mmol/L [facility] Anion gap 7 2 - 15 mmol/L [facility] BUN 5(L) 6 - 25 mg/dL [facility] Creatinine 0.73(L) 0.80 - 1.30 mg/dL [facility] Glucose 99 70 - 199 mg/dL [facility] [...] 2022. Calcium 9.3 8.5 - 10.3 mg/dL [facility] Bilirubin, total 0.2 0.1 - 1.2 mg/dL [facility] Protein, pl 6.6 6.5 - 8.5 g/dL [facility] Albumin 3.3(L) 3.5 - 5.0 g/dL [facility] Alk phos 172(H) 40 - 130 Units/L [facility] ALT 18 7 - 55 Units/L [facility] AST 17 10 - 50 Units/L [facility] Blood 09/25/2024 7:43 AM LINUX SYSTEM ADMINISTRATOR 09/25/2024 7:51 AM LINUX SYSTEM ADMINISTRATOR Stan Meza MD LAB BLOOD ORDERABLES Yolette l Result [facility] Department [place] [address] * CT Body Outside Reference (09/17/2024 11:19 AM LINUX SYSTEM ADMINISTRATOR) Impressions RAD_PACS_[facility]J - 09/17/2024 11:19 AM LINUX SYSTEM ADMINISTRATOR These images are for Reference purposes only and have not been reviewed by [facility] Radiology. ??There will be no report generated by a [facility] Radiologist. Narrative RAD_PACS_[facility]J - 09/17/2024 11:19 AM LINUX SYSTEM ADMINISTRATOR EXAMINATION: ??Images For Reference Purposes Only us Stan Meza MD IMG CT PROCEDURES Final R esult Performing Organization Address City/[facility] Co de Phone Number [id number] * (ABNORMAL) Differential, auto (09/05/2024 8:03 AM LINUX SYSTEM ADMINISTRATOR) Neutrophil abs 1.6 1.5 - 6.5 K/cumm Comment:Testing performed by : [facility], [address] [place] [phone] Lymphocyte abs 0.4(L) 0.8 - 3.3 K/cumm [facility] Comment:Testing performed by : [facility], [address] [place] [phone] Monocyte abs 0.4 0.2 - 0.8 K/cumm [facility] Comment:Testing performed by : [facility], [address] [place] [phone] Eosinophil abs 0.0 0.0 - 0.5 K/cumm [facility] Comment:Testing performed by : [facility], [address] [place] [phone] Basophil abs 0.0 0.0 - 0.1 K/cumm [facility] Comment:Testing performed by : [facility], [address] [place] [phone] Neutrophil pct 65.0 % [facility] Comment: Interpretive Data Percent cell count reference ranges are not reported, since discordance with absolute values may lead to misinterpretation of CBC data. Current Interpretive Data was last revised on 2018. Testing performed by: [facility], [address] [place] [phone] Lymphocyte pct 16.1 % [facility] Comment: Interpretive Data Percent cell count reference ranges are not reported, since discordance with absolute values may lead to misinterpretation of CBC data. Current Interpretive Data was last revised on 2018. Testing performed by: [facility], [address] [place] [phone] Monocyte pct 17.4 % [facility] Comment: Interpretive Data Percent cell count reference ranges are not reported, since discordance with absolute values may lead to misinterpretation of CBC data. Current Interpretive Data was last revised on 2018. Testing performed by: [facility], [address] [place], [place] [phone] Eosinophil pct 0.6 % [facility] Comment: Interpretive Data Percent cell count reference ranges are not reported, since discordance with absolute values may lead to misinterpretation of CBC data. Current Interpretive Data was last revised on 2018. Testing performed by: [facility], [address] [place] [phone] Basophil pct 0.9 % [facility] Comment: Interpretive Data Percent cell count reference ranges are not reported, since discordance with absolute values may lead to misinterpretation of CBC data. Current Interpretive Data was last revised on 2018. Testing performed by: [facility], [address] [place] [phone] Blood 09/05/2024 8:03 AM LINUX SYSTEM ADMINISTRATOR 09/05/2024 8:04 AM LINUX SYSTEM ADMINISTRATOR us Stan Meza MD LAB BLOOD ORDERABLES Yolette banda Result [facility] Department [place] [address] * (ABNORMAL) CBC with auto differential (09/05/2024 8:03 AM LINUX SYSTEM ADMINISTRATOR) WBC 2.5(L) 3.8 - 9.9 K/cumm Comment:Testing performed by : [facility], [address] [place] [address] Hgb 10.8(L) 13.0 - 17.5 g/dL [facility] Comment:Testing performed by : [facility], [address] [place], [place] [phone] Hct 33.7(L) 38.9 - 50.3 % [facility] Comment:Testing performed by : [facility], [address] [place], [place] [phone] Plt 103(L) 150 - 400 K/cumm [facility] Comment:Testing performed by : [facility], [address] [place] [address] MPV 7.1 6.8 - 10.4 fL [facility] Comment:Testing performed by : [facility], [address] [place] [address] RBC 4.04(L) 4.30 - 5.80 M/cumm [facility] Comment:Testing performed by : [facility], [address] [place] [address] MCV 83.5 81.3 - 96.4 fL [facility] Comment:Testing performed by : [facility], [address] [place] [address] MCH 26.7(L) 27.1 - 33.3 pg [facility] Comment:Testing performed by : [facility], [address] [place] [address] MCHC 32.0(L) 32.3 - 35.7 g/dL [facility] Comment:Testing performed by : [facility], [address] [place] [address] RDW CV 15.3(H) 11.1 - 14.9 % [facility] Comment:Testing performed by : [facility], [address] [place] [address] NRBC abs 0.00 0.00 - 0.01 K/cumm [facility] Comment:Testing performed by : [facility], [address] [place] [address] Blood 09/05/2024 8:03 AM LINUX SYSTEM ADMINISTRATOR 09/05/2024 8:04 AM LINUX SYSTEM ADMINISTRATOR us Stan Meza MD LAB BLOOD ORDERABLES Yolette l Result [facility] Department [place] [address] * eGFR (09/05/2024 7:51 AM LINUX SYSTEM ADMINISTRATOR) eGFR >90 >=60 mL/min/1. 73 m2 Comment: [...] last reviewed 2021. Blood 09/05/2024 7:51 AM LINUX SYSTEM ADMINISTRATOR 09/05/2024 8:15 AM LINUX SYSTEM ADMINISTRATOR us Stan Meza MD LAB BLOOD ORDERABLES Yolette banda Result [facility] Department [place] [address] * (ABNORMAL) Comprehensive metabolic panel (09/05/2024 7:51 AM LINUX SYSTEM ADMINISTRATOR) Sodium 135 135 - 145 mmol/L Potassium, pl 3.8 3.3 - 4.9 mmol/L [facility] Chloride 98 97 - 110 mmol/L [facility] CO2 29 22 - 32 mmol/L [facility] Anion gap 8 2 - 15 mmol/L [facility] BUN 5(L) 6 - 25 mg/dL [facility] Creatinine 0.72(L) 0.80 - 1.30 mg/dL [facility] Glucose 99 70 - 199 mg/dL [facility] [...] 2022. Calcium 8.9 8.5 - 10.3 mg/dL [facility] Bilirubin, total 0.3 0.1 - 1.2 mg/dL [facility] Protein, pl 6.9 6.5 - 8.5 g/dL [facility] Albumin 3.4(L) 3.5 - 5.0 g/dL [facility] Alk phos 160(H) 40 - 130 Units/L [facility] ALT 24 7 - 55 Units/L [facility] AST 21 10 - 50 Units/L [facility] Blood 09/05/2024 7:51 AM LINUX SYSTEM ADMINISTRATOR 09/05/2024 8:15 AM LINUX SYSTEM ADMINISTRATOR us Stan Meza MD LAB BLOOD ORDERABLES Yolette l Result [facility] Department [place] [address] from Last 3 Months Insurance [facility] Care Teams Elastic Yarn Twister Relationship Specialty Start Date End Date Matthew Mccabe MD [address] [place] [address] PCP - General Family Medicine 05/13/24 Stan Meza MD [address] [facility] MEDICAL ONCOLOGY, [address] [place] [address] Medical Oncologist/Loop Machine Operator Medical Oncology 06/28/24
--- OUTSIDE RECORDS SUMMARY | 2024-12-04 07:24 | XMS_ITS | CONTINUITY OF CARE DOCUMENT ---
Author Name eber, eber Address Unknown Organization [facility] Address [address] [place] [address] Phone [phone] Care Team Providers Care Dividend Clerk Name Role Phone Paul Holliday MD Unavailable JEAN ARMENTA MD Unavailable [phone] JEAN ARMENTA MD Unavailable [phone] PROBLEMS Condition Status Date Provider Notes Family [...] MD BACK PAIN, CHRONIC active ? 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 Paul Holliday MD CHEST PAIN-TYPE TO BE DETERMINED active ? Jess Holliday MD HTN ESSENTIAL active ? Paul Holliday MD ENCOUNTERS Date Type Provider Location Encounter Diag nosis - In-person encounter Office Visit Paul Holliday MD [facility] Family History of CVA or Stroke:Family History of Hyperlipidemia:Family History of Hypertension:Family History of Sudden Cardiac :Family History of Hypertension: - In-person encounter Office Visit Paul Holliday MD [facility] - In-person encounter Office Visit Paul Holliday MD [facility] HTN ESSENTIALCHEST PAIN-TYPE TO BE DETERMINEDPE-2007BACK [...] solorzano pulse rate 76 /min Jacinta Justin [facility] weight E&M 255 [lb_av] Jacinta Justin [facility] height E&M 68 [in_i] Jacinta Margoth [facility] Body Mass Index (Ratio) 43.34 kg/m2 Sobia [...] Body Mass Index (Ratio) 42.42 kg/m2 Doyle Pelralaurie WISDOM weight E&M 278 [lb_av] Doyle Timoteo WISDOM height E&M 68 [in_i] Doyle Mahmood RN ALLERGIES Allergy Name Onset Date Reaction Criticality Status PENICILLIN Low Criticality active RESULTS Date Observation Value Provider Reference Range Interpretation Location alanine aminotransferase (SGPT), serum 12 1/L [facility] aspartate aminotransferase (SGOT), serum 15 1/L [facility] creatinine, serum 0.83 mg/dL [facility] potassium, serum 3.2 mmol/L [facility] sodium, serum 134 mmol/L [facility] international normalized ratio (INR) 0.99 [facility] platelet count 193 10*3/mm3 [facility] hematocrit, blood 42.2 % [facility] triglyceride, serum, fasting 113 mg/dL [facility] HDL cholesterol, serum 44 mg/dL [facility] lipoprotein, beta, serum, point, quantitative, calculated 96 mg/dL [facility] cholesterol, serum 163 mg/dL [facility] thyroid stimulating hormone, serum 1.430 u[IU]/mL [facility] alanine aminotransferase (SGPT), serum 72 1/L [facility] aspartate aminotransferase (SGOT), serum 66 1/L [facility] creatinine, serum 1.02 mg/dL [facility] potassium, serum 3.7 mmol/L [facility] sodium, serum 132 mmol/L [facility] HISTORY OF MEDICATION USE Medication Status [...] Payer name Policy type / Coverage type [place] [employer] [place] MEDICA[employer] (2) Medicaid [id number] ADVANCE DIRECTIVES Name Date DISCUSSED - NO [...] ..... One tab. daily Orders: E KG ([id number]) S TR - Nuclear (80400) Paul Holliday MD chest pain : T [...] chest pain : O rders: Adolfo AMBROSIO ([id number]) Paul Holliday MD chest pain : H [...] Prior BP: / () Orders: E DAILY ([id number]) Paul Holliday MD chest pain :states d [...]
--- OUTSIDE RECORDS SUMMARY | 2024-12-04 07:24 | XMS_ITS | Clinical Summary ---
Author Organization [facility] Address [address], [facility] [address] [place] [address] Phone Care Team Providers Care Vest Presser Name Role Phone Patito Randalli [place] RUG CLEANER HELPER, PIGGYBACK CLERK Unavailable Allergies Active Allergy Reactions Criticality Noted [...] Comments Blood Pressure 142/74 11/06/2017 2:41 PM STATISTICAL MODELER Pulse 77 11/06/2017 2:41 PM STATISTICAL MODELER Temperature 36.1 ??C (97 ??F) 11/06/2017 2:41 PM STATISTICAL MODELER Respiratory Rate 18 11/06/2017 2:41 PM STATISTICAL MODELER Oxygen Saturation 99% 11/06/2017 8:00 AM STATISTICAL MODELER Inhaled Oxygen Concentration - - Weight 113.4 kg (250 lb) 11/03/2017 6:25 PM STATISTICAL MODELER Height 175.3 cm (5' 9 ) 11/03/2017 6:25 PM STATISTICAL MODELER Body Mass Index 36.92 11/03/2017 6:25 PM STATISTICAL MODELER Plan of Treatment Health Maintenance Due Date [...] CHEST W/O CONTRAST STAT 11/03/2017 11:30 PM STATISTICAL MODELER from Last 3 Months or Most Recently Relevant to Health Maintenance Results * CT CHEST W/O CONTRAST (11/03/2017 11:30 PM STATISTICAL MODELER) Anatomical Region Laterality Modality Chest N/A Computed Tomogra phy 11/04/2017 12:2 4 AM STATISTICAL MODELER Impressions 11/04/2017 12:28 AM STATISTICAL MODELER IMPRESSION: 1. ??A few nonspecific scattered ground-glass infiltrates in the bilateral upper lobes, which may represent pneumonia. 2. ??Mild paraseptal emphysema. Automated exposure control was used as a dose optimization technique for this examination. Narrative 11/04/2017 12:28 AM STATISTICAL MODELER EXAMINATION: ??CT chest without contrast HISTORY: ??Cough, [...] Recently Relevant to Health Maintenance Insurance MEDICAID [facility] Advance Directives * Full Code (Latest Code Status on File) Date Activated Date Inactivated Comments 11/04/2017 9:36 AM 11/06/2017 6:27 PM CPR-Full Treat ment: FULL ARREST: Attempt Resuscitation/CPR wit intubation and mechanical ventilation. PRE-ARREST: Use entire range of life support measures to stabilize the patient. Care Teams Vest Presser Relationship Specialty Start Date End Date Montserrat Randall, RUG CLEANER HELPER, PIGGYBACK CLERK Nurse Practitioner Advanced Practice Nurse 10/21/16
--- OUTSIDE RECORDS SUMMARY | 2024-12-04 07:24 | XMS_ITS | Encounter Summary ---
Author Organization [facility] Address [address] [facility] [place] [address] Care Team Providers Care Dredge Or Barge Shore Hand Name Role Phone Ian Pollock MD Primary Care Provider Katina Casiano DO Unavailable [phone] Xavi ACOSTA MD, Jameel Gaviria Primary Care Provider + Katina Casiano DO Unavailable [phone] Tracey Ang PA Unavailable [phone] Belkis Angel CLINICAL OPERATIONS SPECIALIST-BREAKDOWN PERSON Primary Care Provider + Natalie Baum Primary Care Provider [phone] Encounter Details Date Type Department Care Team (Late st Contact Info) Description 03/03/[address] [facility] [address] [place] [address] Alvarez Duarte MD [address] [address] Social History Tobacco Use Types Packs/Day Years [...] pm. He is having transportation issues med [place] does not run that late. He will call back to schedule when he can figure out his transportation. Please cancel this appt for him. Patient Call Back number: [phone] documented in this encounter Plan of Treatment [...] on filedocumented in this encounter Care Teams Dredge Or Barge Shore Hand Relationship Specialty Start Date End Date Ian Pollock MD [address] OF [facility] [place] [address] PCP - General 08/21/20 05/29/23 Jameel Hurley III, MD [address] DIV OF [facility] [place] [address] PCP - General Internal Medicine 06/05/23 08/28/23 Belkis Angel APRN-BREAKDOWN PERSON [address] [facility] [address] [place] [address] PCP - General Nurse Practitioner 08/29/23 05/05/24 Natalie Baum [address] [place] [address] PCP - General 05/06/24 Katina Casiano DO [address] [facility] [address] DIV OF [facility] [place], [place] Resident - PCP Internal Medicine 08/10/22 05/29/23 Katina Casiano DO [address] [facility] [address] DIV OF GEN [facility]NAL MEDIC[facility] [place], [place] Hospitalist 06/05/23 Tracey Ang PA [address] [facility] [address] [place] [address] Physician Tire Inspector 08/15/23 documented as of this encounter
--- OUTSIDE RECORDS SUMMARY | 2024-12-04 07:24 | XMS_ITS ---
Author Organization [facility] Address [address] [place] [address] Care Team Providers Care Patient Transporter Name Role Phone Matthew Mccabe MD Primary Care Prov ider Stan Meza MD Unavailable [phone] Active Problems Problem Noted Date Diagnosed Date [...] cancer of left lower lobe of lung (HCC)Hypokalemia Treatment Medications Current Day (Day 1 , Cycle 4 - Planned for 12/05/2024) Next Day (Day 8, Cycle 4 - Planned for 12/12/2024) albumin-bound PACLItaxel (ABRAXANE)albumin-bound PACLItaxel (ABRAXANE) 5 mg/mLCARBOplatin (PARAPLATIN)CARBOplatin (PARAPLATIN) IVPB in 250 mLdexAMETHasone (DECADRON)pembrolizumab (KEYTRUDA) ALBUMIN-BOUND PACLItaxel (ABRAXANE) 5 mg/mL syringe 170 mgCARBOplatin (PARAPLATIN) 600 mg in sodium chloride 0.9% 250 mL IVPB (By AUC)pembrolizumab (KEYTRUDA) 200 mg in sodium chloride 0.9% 100 mL ALBUMIN-BOUND PACLItaxel (ABRAXANE) 5 mg/mL syringe 170 mg Zoledronic Acid Every 6 Weeks* Plan Start Date:11/28/2024 Plan Provider:Stan Meza MD Linked Problems Metastasis to bone (CMS/HCC) (HCC)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 No medications schedul ed. No medications scheduled. Past Plans Oncology Chemotherapy Treatment Plan Name Start Date Discontinue Date Treatment Medications Discontinue Reason Plan Provider Cycles Pembrolizumab / PACLItaxel / CARBOplatin 21 Day Cycles then Pembrolizumab 21 Day Cycles - Non-Small Cell Lung 08/22/20 24 08/20/2024 CARBOplatin (PARAPLATIN)P ACLitaxel (TAXOL)pembro lizumab (KEYTRUDA) Provider Discretion Stan Pastrana rn, MD Treatment not started Pembrolizumab / Albumin-bound PACLItaxel (Abraxane) / CARBOplatin 21 Day Cycles then Pembrolizumab 21 Day Cycles - Non-Small Cell Lung 08/22/20 24 08/20/2024 albumin-bound PACLItaxel (ABRAXANE)CAR BOplatin (PARAPLATIN)p embrolizumab (KEYTRUDA) Financial Stan Pastrana rn, MD Treatment not started Pembrolizumab / Pemetrexed / CARBOplatin 21 day cycles - Non-Small Cell Lung 08/15/20 24 08/20/2024 CARBOplatin (PARAPLATIN)p embrolizumab (KEYTRUDA)PEM Etrexed (ALIMTA) Provider Discretion Stan Pastrana rn, MD 1 of 24 cycles started Specialty Infusion Treatment Plan Name Start Date Discontinue Date Treatment Medications Discontinue Reason Plan Provider Denosumab (XGEVA) Injection 11/07/2024 11/11/2024 No medications scheduled. Financial Stan Meza MD Radiation Treatments * Plan Last Treated On [...]
--- OUTSIDE RECORDS SUMMARY | 2024-12-04 07:24 | XMS_ITS | Clinical Summary ---
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 [address] [place] [phone] Sasha Hernandes RN 11/28/[address] [facility] [address] [place] [phone] Sasha Hernandes RN 11/28/[address] [facility] [address] [place] [phone] Sasha Hernandes RN Primary cancer of left lower lobe of lung (HCC) (Primary Dx); Hypokalemia 11/27/[address] [facility] [address] [place] [phone] Sasha Hernandes RN Primary cancer of left lower lobe of lung (HCC) (Primary Dx) 11/25/[address] [facility] [address] [place] [phone] Sarah Brunner, [facility] 11/14/2024 8:00 AM SCHOOL SUPERVISOR - 11/14/2024 11:59 PM SCHOOL SUPERVISOR Hospital Encounter [facility] [address] [place] [address] Stan Meza MD Hypokalemia (Primary Dx); Primary cancer of left lower lobe of lung (HCC) Discharge Disposition: Discharge to home or self care 11/14/[address] [facility] [address] [place] [address] 5 [place] [address] Sasha Hernandes RN 11/14/[address] [facility] [address] [place] [address] 5 [place] [address] Sasha Hernandes RN Hypokalemia (Primary Dx) 11/11/[address] [facility] [address] [place] [phone] Sarah Brunner, RUBBER LINER 11/11/2024 Documentation [facility] Radiation Oncology [address] [place] [address] [place] [address] Delmi Saxena, [facility] 11/11/2024 Telephone [facility] Radiation Oncology [address] [place] [address] [place] [address] Jeffrey Ham MD 11/11/[address] [facility] [address] [place] [phone] Sasha Hernandes RN Metastasis to bone (CMS/HCC) (HCC) (Primary Dx); Primary cancer of left lower lobe of lung (HCC) 11/07/2024 10:30 AM SCHOOL SUPERVISOR Infusion [facility] - Infusion [address] [place] [address] Floor 5 [place] [address] Primary cancer of left lower lobe of lung (HCC) (Primary Dx) 11/07/2024 9:20 AM SCHOOL SUPERVISOR Office Visit [facility] [address] [place] [phone] Stan Meza MD Primary cancer of left lower lobe of lung (HCC) (Primary Dx); Metastasis to bone (CMS/HCC) (HCC) 11/07/2024 8:15 AM SCHOOL SUPERVISOR Lab [facility] Lab [address] [place] [phone] Primary cancer of left lower lobe of lung (HCC) 11/07/2024 8:00 AM SCHOOL SUPERVISOR Lab [facility] - Lab Collection [address] [place] [address] Primary cancer of left lower lobe of lung (HCC); Metastasis to bone (CMS/HCC) (HCC) 11/06/[address] [facility] [address] [place] [phone] Sasha Hernandes RN Primary cancer of left lower lobe of lung (HCC) (Primary Dx); Metastasis to bone (CMS/HCC) (HCC) 11/04/[address] [facility] [address] [place] [phone] Sarah Brunner, [facility] 10/29/[address] [facility] [address] [place] [phone] Carissa Long, RUBBER LINER 10/29/[address] [facility] [address] [place] [phone] Kelly Montes, [facility] 10/28/[address] [facility] [address] [place] [phone] Maddy Freire RN 10/25/2024 2:15 PM SCHOOL SUPERVISOR - 10/25/2024 11:59 PM SCHOOL SUPERVISOR Hospital Encounter [facility] [address] [place] [address] Diagnosis unknown Discharge Disposition: Discharge to home or self care 10/25/[address] [facility] [address] [place] [phone] Sasha Hernandes, RN 10/24/2024 Telephone [facility] Nutrition Counseling [address] [place] [address] Dagmar Pickard, RD 10/24/[address] [facility] Floor 8 [place] [address] Olimpia Parr, A 10/18/[address] [facility] [address] [place] [address] Floor 5 [place] [address] Sarah Brunner, RUBBER LINER 10/17/2024 Telephone [facility] Nutrition Counseling [address] [place] [phone] Dagmar Pickard, RD 10/17/[address] [facility] [address] [place] [address] Floor 5 [place] [phone] Pool Hong, [facility] 10/15/2024 Documentation [facility] Hospice - [address] [place] [phone] Gayatri Garza, ALYX 10/14/[address] [facility] [address] [place] [address] Floor 5 [place] [address] Sarah Brunner, RUBBER LINER 10/10/2024 Telephone [facility] - Palliative Care [address] [facility] [place] [address] Mariah Altamirano, RN 10/03/2024 8:30 AM SCHOOL SUPERVISOR Infusion [facility] - Infusion [address] [facility] Floor 5 [place] [address] Primary cancer of left lower lobe of lung (HCC) (Primary Dx) 10/03/2024 7:30 AM SCHOOL SUPERVISOR Lab [facility] - Lab Collection [address] [facility] Floor 5 [place] [address] Primary cancer of left lower lobe of lung (HCC) 10/03/[address] [facility] ([facility] - [facility] [address] [facility] 11th [place] [address] [place] [address] Augustine, Alexsandra, 09/30/[address] [facility] [address] [place] [address] Floor 5 [place] [address] Sarah Brunner, RUBBER LINER 09/25/2024 9:00 AM SCHOOL SUPERVISOR Infusion [facility] - Infusion [address] [facility] Floor 5 [place] [address] Primary cancer of left lower lobe of lung (HCC) (Primary Dx) 09/25/2024 8:00 AM SCHOOL SUPERVISOR Office Visit [facility] [address] [place] [address] Floor 5 [place] [phone] Stan Meza MD Primary cancer of left lower lobe of lung (HCC) (Primary Dx) 09/25/2024 7:00 AM SCHOOL SUPERVISOR Lab [facility] - Lab Collection [address] [place] [address] Floor 5 [place] [address] Primary cancer of left lower lobe of lung (HCC) 09/23/2024 Documentation [facility] [address] [place] [phone] Gayatri Garza RN 09/20/[address] [facility] [address] [place] [address] 5 [place] [address] Sarah Brunner, LAURIE 09/17/2024 11:19 AM SCHOOL SUPERVISOR - 09/17/2024 11:59 PM SCHOOL SUPERVISOR Hospital Encounter [facility] [address] [place] [address] Discharge Disposition: Discharge to home or self care 09/17/[address] [facility] [address] [place] [address] Floor 5 [place] [address] Sarah Brunner, RUBBER LINER 09/17/2024 Documentation [facility] - Palliative Care [facility] [place] [address] Mary Ellen Mckeon MD 09/16/[address] [facility] [address] [place] [phone] Sasha Hernandes RN Primary cancer of left lower lobe of lung (HCC) (Primary Dx) 09/11/2024 Telephone [facility] - Palliative Care [address] [place] [address] Mariah Altamirano, ALYX 09/10/2024 Telephone [facility] - Palliative Care [address] [place] [address] Mariah Altamirano, ALYX 09/09/2024 Telephone [facility] - Palliative Care [address] [place] [phone] Mariah Altamirano, ALYX 09/06/[address] [facility] [address] [place] [phone] Sasha Hernandes RN 09/05/2024 9:30 AM SCHOOL SUPERVISOR Infusion [facility] - Infusion [address] [place] [address] Primary cancer of left lower lobe of lung (HCC) (Primary Dx) 09/05/2024 8:40 AM SCHOOL SUPERVISOR Office Visit [facility] [address] [place] [phone] Stan Meza MD Primary cancer of left lower lobe of lung (HCC) (Primary Dx) 09/05/2024 7:30 AM SCHOOL SUPERVISOR Lab [facility] Lab [address] [place] [phone] Primary cancer of left lower lobe of lung (HCC) 09/05/2024 7:15 AM SCHOOL SUPERVISOR Lab [facility] - Lab Collection [address] [place] [address] Primary cancer of left lower lobe of lung (HCC) 09/04/[address] [facility] [address] [place] [phone] Sarah Brunner LCSW from Last 3 Months Immunizations Name Administration Dates Next Due Influenza, Quadrivalent, Hig h Dose, Preservative Free, Intrr 08/23/2024 Influenza, Quadrivalent, Rec ombinant, Egg Free, Preservative Free, Intramuscular 07/29/2022,07/26/2021 Influenza, Quadrivalent, Spl it, Intramuscular 07/17/2017,09/29/2016 Influenza, Quadrivalent, Spl it, Preservative Free, Intramuscular 09/29/2023,08/04/2020,07/11/2019,08/09,11/02/2015 Influenza, Unspecified 08/13/2020 [employer] SARS-CoV-2 Vaccination 01/17/2021 Pneumococcal Conjugate Pcv20 [...] Arthritis Asthma CHF (congestive heart failur e) (CMS/HCC) (HCC) COPD (chronic obstructive pu lmonary disease) [...] on file Legal Sex Male 6:04 PM SCHOOL SUPERVISOR Gender Identity Not on file Sexual Orientation Not on file Obstetrics History Last Filed Vital Signs Vital Sign Reading Time Taken Comments Blood Pressure 136/80 11/14/2024 8:16 AM SCHOOL SUPERVISOR Pulse 80 11/14/2024 8:16 AM SCHOOL SUPERVISOR Temperature 36.4 ??C (97.5 ??F) 11/14/2024 8:16 AM CS T Respiratory Rate 18 11/14/2024 8:16 AM SCHOOL SUPERVISOR Oxygen Saturation 98% 11/14/2024 8:16 AM SCHOOL SUPERVISOR Inhaled Oxygen Concentration - - Weight 89.7 kg (197 lb 12.8 oz) 11/14/2024 8:25 AM SCHOOL SUPERVISOR Height 167.6 cm (5' 6 ) 08/29/2024 12:0 7 PM CDT Body Mass Index 31.93 08/29/2024 12:07 PM CDT Plan of Treatment Health Maintenance Due Date Last Done Comments Colon Cancer Screening-Colonoscopy 1961 Depression Screening 1961 Hepatitis C Screening 1961 Prostate Cancer Screening-PSA 1961 Hepatitis B Screening 1979 Regular Well Visit/Exam 18-64 1979 Zoster Vaccine (1 of 2) 1980 Covid-19 Vaccine (5 - 2023-2 5 season) 2024 09/29/2023, 09/14/2021, 01/17/2021, Additional history exists DTaP/Tdap/Td Vaccine (3 - Td or Tdap) 09/29/2033 09/29/2023, 07/17/2017 Pneumococcal vaccine <65 Completed 07/29/2022, 06/30 Influenza Vaccine Completed 08/23/2024, , 07/29/2022, Additional history exists Procedures Procedure Name Priority Date/Time Associated Diagnosis Comments EGFR STAT 11/14/2024 8:52 AM SCHOOL SUPERVISOR Primary cancer of left lower lobe of lung (HCC) COMPREHENSIVE METABOLIC PANEL STAT 11/14/2024 8:52 AM SCHOOL SUPERVISOR Primary cancer of left lower lobe of lung (HCC) DIFFERENTIAL AUTO STAT 11/14/2024 8:3 8 AM SCHOOL SUPERVISOR Primary cancer of left lower lobe of lung (HCC) CBC WITH AUTO DIFFERENTIAL STAT 11/14/2024 8:38 AM SCHOOL SUPERVISOR Primary cancer of left lower lobe of lung (HCC) EGFR STAT 11/07/2024 8:14 AM SCHOOL SUPERVISOR Primary cancer of left lower lobe of lung (HCC) DIFFERENTIAL AUTO STAT 11/07/2024 8:1 4 AM SCHOOL SUPERVISOR Primary cancer of left lower lobe of lung (HCC) MAGNESIUM STAT 11/07/2024 8:14 AM SCHOOL SUPERVISOR Primary cancer of left lower lobe of lung (HCC) Metastasis to bone (CMS/HCC) (HCC) PHOSPHORUS STAT 11/07/2024 8:14 AM SCHOOL SUPERVISOR Primary cancer of left lower lobe of lung (HCC) Metastasis to bone (CMS/HCC) (HCC) VITAMIN D 25 HYDROXY Routine 11/07/2024 8:14 AM SCHOOL SUPERVISOR Primary cancer of left lower lobe of lung (HCC) Metastasis to bone (CMS/HCC) (HCC) CBC WITH AUTO DIFFERENTIAL STAT 11/07/2024 8:14 AM SCHOOL SUPERVISOR Primary cancer of left lower lobe of lung (HCC) COMPREHENSIVE METABOLIC PANEL STAT 11/07/2024 8:14 AM SCHOOL SUPERVISOR Primary cancer of left lower lobe of lung (HCC) CT BODY OUTSIDE CONSULT Routine 10/25/2024 2:15 PM SCHOOL SUPERVISOR Diagnosis unknown DIFFERENTIAL AUTO Routine 10/03/2024 7:3 4 AM SCHOOL SUPERVISOR Primary cancer of left lower lobe of lung (HCC) CBC WITH AUTO DIFFERENTIAL Routine 10/03/2024 7:34 AM SCHOOL SUPERVISOR Primary cancer of left lower lobe of lung (HCC) EGFR STAT 09/25/2024 7:43 AM SCHOOL SUPERVISOR Primary cancer of left lower lobe of lung (HCC) DIFFERENTIAL AUTO STAT 09/25/2024 7:4 3 AM SCHOOL SUPERVISOR Primary cancer of left lower lobe of lung (HCC) CBC WITH AUTO DIFFERENTIAL STAT 09/25/2024 7:43 AM SCHOOL SUPERVISOR Primary cancer of left lower lobe of lung (HCC) COMPREHENSIVE METABOLIC PANEL STAT 09/25/2024 7:43 AM SCHOOL SUPERVISOR Primary cancer of left lower lobe of lung (HCC) CT BODY OUTSIDE REFERENCE Routine 09/17/2024 11:19 AM SCHOOL SUPERVISOR DIFFERENTIAL AUTO Routine 09/05/2024 8:0 3 AM SCHOOL SUPERVISOR Primary cancer of left lower lobe of lung (HCC) CBC WITH AUTO DIFFERENTIAL Routine 09/05/2024 8:03 AM SCHOOL SUPERVISOR Primary cancer of left lower lobe of lung (HCC) EGFR STAT 09/05/2024 7:51 AM SCHOOL SUPERVISOR Primary cancer of left lower lobe of lung (HCC) COMPREHENSIVE METABOLIC PANEL STAT 09/05/2024 7:51 AM SCHOOL SUPERVISOR Primary cancer of left lower lobe of lung (HCC) from Last 3 Months Results * eGFR (11/14/2024 8:52 AM SCHOOL SUPERVISOR) eGFR >90 >=60 mL/min/1. 73 m2 Comment: [...] last reviewed 2021. Blood 11/14/2024 8:52 AM SCHOOL SUPERVISOR 11/14/2024 8:59 AM SCHOOL SUPERVISOR Stan Meza MD LAB BLOOD ORDERABLES Yolette l Result [facility] [place] [address] * (ABNORMAL) Comprehensive metabolic panel (11/14/2024 8:52 AM SCHOOL SUPERVISOR) Pathologist [facility] Sodium 139 135 - 145 mmol/L Potassium, pl 3.1(L) 3.3 - 4.9 mmol/L [facility] Chloride 101 97 - 110 mmol/L [facility] CO2 31 22 - 32 mmol/L [facility] Anion gap 7 2 - 15 mmol/L [facility] BUN 4(L) 6 - 25 mg/dL [facility] Creatinine 0.64(L) 0.80 - 1.30 mg/dL [facility] Glucose 113 70 - 199 mg/dL [facility] Comment: Interpretive Data Fasting glucose >/= [...] 2022. Calcium 9.0 8.5 - 10.3 mg/dL [facility] Bilirubin, total 0.3 0.1 - 1.2 mg/dL [facility] Protein, pl 6.9 6.5 - 8.5 g/dL [facility] Albumin 3.9 3.5 - 5.0 g/dL [facility] Alk phos 128 40 - 130 Units/L [facility] ALT 9 7 - 55 Units/L [facility] AST 16 10 - 50 Units/L [facility] Blood 11/14/2024 8:52 AM SCHOOL SUPERVISOR 11/14/2024 8:59 AM SCHOOL SUPERVISOR Stan Meza MD LAB BLOOD ORDERABLES Yolette banda Result [facility] [place] [address] * (ABNORMAL) Differential, auto (11/14/2024 8:38 AM SCHOOL SUPERVISOR) Neutrophil abs 2.4 1.5 - 6.5 K/cumm Imm gran abs 0.0 0.0 - 0.1 K/cumm [facility] Lymphocyte abs 0.6(L) 0.8 - 3.3 K/cumm [facility] Monocyte abs 0.2 0.2 - 0.8 K/cumm [facility] Eosinophil abs 0.1 0.0 - 0.5 K/cumm [facility] Basophil abs 0.1 0.0 - 0.1 K/cumm [facility] Neutrophil pct 70.0 % [facility] Comment: Interpretive Data Percent cell count reference ranges are not reported, since discordance with absolute values may lead to misinterpretation of CBC data. Current Interpretive Data was last revised on 2018. Imm gran pct 0.9 % [facility] Comment: Interpretive Data Percent cell count reference ranges are not reported, since discordance with absolute values may lead to misinterpretation of CBC data. Current Interpretive Data was last revised on 2018. Lymphocyte pct 18.5 % [facility] Comment: Interpretive Data Percent cell count reference ranges are not reported, since discordance with absolute values may lead to misinterpretation of CBC data. Current Interpretive Data was last revised on 2018. Monocyte pct 5.6 % [facility] Comment: Interpretive Data Percent cell count reference ranges are not reported, since discordance with absolute values may lead to misinterpretation of CBC data. Current Interpretive Data was last revised on 2018. Eosinophil pct 3.5 % [facility] Comment: Interpretive Data Percent cell count reference ranges are not reported, since discordance with absolute values may lead to misinterpretation of CBC data. Current Interpretive Data was last revised on 2018. Basophil pct 1.5 % [facility] Comment: Interpretive Data Percent cell count reference ranges are not reported, since discordance with absolute values may lead to misinterpretation of CBC data. Current Interpretive Data was last revised on 2018. Blood 11/14/2024 8:38 AM SCHOOL SUPERVISOR 11/14/2024 8:59 AM SCHOOL SUPERVISOR us Stan Meza MD LAB BLOOD ORDERABLES Yolette banda Result [facility] [place] [address] * (ABNORMAL) CBC with auto differential (11/14/2024 8:38 AM SCHOOL SUPERVISOR) WBC 3.4(L) 3.8 - 9.9 K/cumm Hgb 9.3(L) 13.0 - 17.5 g/dL [facility] Hct 28.9(L) 38.9 - 50.3 % [facility] Plt 196 150 - 400 K/cumm [facility] MPV 10.5 9.1 - 12.3 fL [facility] RBC 3.34(L) 4.30 - 5.80 M/cumm [facility] MCV 86.5 81.3 - 96.4 fL [facility] MCH 27.8 27.1 - 33.3 pg [facility] MCHC 32.2(L) 32.3 - 35.7 g/dL [facility] RDW CV 18.5(H) 11.1 - 14.9 % [facility] RDW SD 59.2(H) 35.7 - 48.1 fL [facility] NRBC abs 0.00 0.00 - 0.01 K/cumm [facility] Blood 11/14/2024 8:38 AM SCHOOL SUPERVISOR 11/14/2024 8:59 AM SCHOOL SUPERVISOR us Stan Meza MD LAB BLOOD ORDERABLES Yolette banda Result Performing Organization Address City/State/[facility] Co de Phone Number [facility] [place] [address] * eGFR (11/07/2024 8:14 AM SCHOOL SUPERVISOR) eGFR >90 >=60 mL/min/1. 73 m2 Comment: [...] last reviewed 2021. Blood 11/07/2024 8:14 AM SCHOOL SUPERVISOR 11/07/2024 8:18 AM SCHOOL SUPERVISOR us Stan Mzea MD LAB BLOOD ORDERABLES Yolette banda Result [facility] [place] [address] * Differential, auto (11/07/2024 8:14 AM SCHOOL SUPERVISOR) Neutrophil abs 3.0 1.5 - 6.5 K/cumm Comment:Testing performed by : [facility], [address] [place] [address] Lymphocyte abs 0.8 0.8 - 3.3 K/cumm [facility] Comment:Testing performed by : [facility], [address] [place] [phone] Monocyte abs 0.7 0.2 - 0.8 K/cumm [facility] Comment:Testing performed by : [facility], [address] [place], [place] [phone] Eosinophil abs 0.3 0.0 - 0.5 K/cumm [facility] Comment:Testing performed by : [facility], [address] [place] [phone] Basophil abs 0.1 0.0 - 0.1 K/cumm [facility] Comment:Testing performed by : [facility], [address] [place] [phone] Neutrophil pct 60.9 % [facility] Comment: Interpretive Data Percent cell count reference ranges are not reported, since discordance with absolute values may lead to misinterpretation of CBC data. Current Interpretive Data was last revised on 2018. Testing performed by: [facility], [address] [place] [address] Lymphocyte pct 17.4 % [facility] Comment: Interpretive Data Percent cell count reference ranges are not reported, since discordance with absolute values may lead to misinterpretation of CBC data. Current Interpretive Data was last revised on 2018. Testing performed by: [facility], [address] [place] [phone] Monocyte pct 14.4 % [facility] Comment: Interpretive Data Percent cell count reference ranges are not reported, since discordance with absolute values may lead to misinterpretation of CBC data. Current Interpretive Data was last revised on 2018. Testing performed by: [facility], [address] [place] [phone] Eosinophil pct 6.2 % [facility] Comment: Interpretive Data Percent cell count reference ranges are not reported, since discordance with absolute values may lead to misinterpretation of CBC data. Current Interpretive Data was last revised on 2018. Testing performed by: [facility], [address] [place] [phone] Basophil pct 1.1 % [facility] Comment: Interpretive Data Percent cell count reference ranges are not reported, since discordance with absolute values may lead to misinterpretation of CBC data. Current Interpretive Data was last revised on 2018. Testing performed by: [facility], [address] [place] [phone] Blood 11/07/2024 8:14 AM SCHOOL SUPERVISOR 11/07/2024 8:16 AM SCHOOL SUPERVISOR us Stan Meza MD LAB BLOOD ORDERABLES Yolette l Result [facility] [place] [address] * (ABNORMAL) CBC with auto differential (11/07/2024 8:14 AM SCHOOL SUPERVISOR) WBC 4.9 3.8 - 9.9 K/cumm Comment:Testing performed by : [facility], [address] [place] [address] Hgb 9.8(L) 13.0 - 17.5 g/dL [facility] Comment:Testing performed by : [facility], [address] [place] [address] Hct 30.1(L) 38.9 - 50.3 % [facility] Comment:Testing performed by : [facility], [address] [place] [address] Plt 232 150 - 400 K/cumm [facility] Comment:Testing performed by : [facility], [address] [place] [address] MPV 6.8 6.8 - 10.4 fL [facility] Comment:Testing performed by : [facility], [address] [place] [address] RBC 3.47(L) 4.30 - 5.80 M/cumm [facility] Comment:Testing performed by : [facility], [address] [place] [address] MCV 86.6 81.3 - 96.4 fL [facility] Comment:Testing performed by : [facility], [address] [place] [address] MCH 28.3 27.1 - 33.3 pg [facility] Comment:Testing performed by : [facility], [address] [place] [address] MCHC 32.6 32.3 - 35.7 g/dL [facility] Comment:Testing performed by : [facility], [address] [place] [address] RDW CV 21.1(H) 11.1 - 14.9 % [facility] Comment:Testing performed by : [facility], [address] [place] [address] NRBC abs 0.00 0.00 - 0.01 K/cumm [facility] Comment:Testing performed by : [facility], [address] [place] [address] Blood 11/07/2024 8:14 AM SCHOOL SUPERVISOR 11/07/2024 8:16 AM SCHOOL SUPERVISOR us Stan Meza MD LAB BLOOD ORDERABLES Yolette l Result Performing Organization Address [facility] Co de Phone Number [facility] [place] [address] * (ABNORMAL) Vitamin D 25 hydroxy (11/07/2024 8:14 AM SCHOOL SUPERVISOR) Vitamin D 25-OH 23(L) 30 - 80 ng/mL Blood 11/07/2024 8:14 AM SCHOOL SUPERVISOR 11/07/2024 8:18 AM SCHOOL SUPERVISOR us Stan Meza MD LAB BLOOD ORDERABLES Yolette l Result Performing Organization Address [facility] Phone Number [facility] [place] [address] * Phosphorus (11/07/2024 8:14 AM SCHOOL SUPERVISOR) Phosphorus, pl 3.4 2.3 - 4.5 mg/dL Blood 11/07/2024 8:14 AM SCHOOL SUPERVISOR 11/07/2024 8:18 AM SCHOOL SUPERVISOR Stan Meza MD LAB BLOOD ORDERABLES Yolette l Result Performing Organization Address [facility] de Phone Number [facility] [place] [address] * Magnesium (11/07/2024 8:14 AM SCHOOL SUPERVISOR) Magnesium 1.7 1.4 - 2.5 mg/dL Blood 11/07/2024 8:14 AM SCHOOL SUPERVISOR 11/07/2024 8:18 AM SCHOOL SUPERVISOR us Stan Meza MD LAB BLOOD ORDERABLES Yolette l Result Performing Organization Address City/[facility] Co de Phone Number [facility] [place] [address] * (ABNORMAL) Comprehensive metabolic panel (11/07/2024 8:14 AM SCHOOL SUPERVISOR) Sodium 138 135 - 145 mmol/L Potassium, pl 3.5 3.3 - 4.9 mmol/L [facility] Chloride 101 97 - 110 mmol/L [facility] CO2 28 22 - 32 mmol/L [facility] Anion gap 9 2 - 15 mmol/L [facility] BUN 4(L) 6 - 25 mg/dL [facility] Creatinine 0.66(L) 0.80 - 1.30 mg/dL [facility] Glucose 97 70 - 199 mg/dL [facility] Comment: Interpretive Data Fasting glucose >/= [...] 2022. Calcium 9.3 8.5 - 10.3 mg/dL [facility] Bilirubin, total 0.3 0.1 - 1.2 mg/dL [facility] Protein, pl 6.6 6.5 - 8.5 g/dL [facility] Albumin 3.6 3.5 - 5.0 g/dL [facility] Alk phos 123 40 - 130 Units/L [facility] ALT 7 7 - 55 Units/L [facility] AST 14 10 - 50 Units/L [facility] Blood 11/07/2024 8:14 AM SCHOOL SUPERVISOR 11/07/2024 8:18 AM SCHOOL SUPERVISOR us Stan Meza MD LAB BLOOD ORDERABLES Yolette l Result [facility] [place] [address] * CT Body Outside Consult (10/25/2024 2:15 PM SCHOOL SUPERVISOR) Anatomical Region Laterality Modality Body N/A Computed Tomogra phy 10/27/2024 7:03 PM SCHOOL SUPERVISOR Impressions 10/27/2024 7:03 PM SCHOOL SUPERVISOR 1. ??Marked response to therapy in the [...] images may or may not represent the [place] source data set and thus may contain changes that may lower the accuracy of this second-opinion interpretation. Electronically signed by: Wally Garg M.D. Narrative 10/27/2024 7:03 PM SCHOOL SUPERVISOR EXAMINATION: RADIOLOGY CONSULTATION ON OUTSIDE IMAGING STUDY STUDY INITIALLY PERFORMED: 10/23/2024 at [facility]. TYPE OF STUDY: Multiple CT images of [...] STUDY STUDY INITIALLY PERFORMED: 10/23/2024 at [facility]. TYPE OF STUDY: Multiple CT images of [...] images may or may not represent the [place] source data set and thus may contain changes that may lower the accuracy of this second-opinion interpretation. Electronically signed by: Wally Garg M.D. us Stan Meza MD IMG CT PROCEDURES Final R esult * Differential, auto (10/03/2024 7:34 AM SCHOOL SUPERVISOR) Neutrophil abs 2.5 1.5 - 6.5 K/cumm Comment:Testing performed by : [facility], [address] [place], [place] [phone] Lymphocyte abs 0.8 0.8 - 3.3 K/cumm [facility] Comment:Testing performed by : [facility], [address] [place] [phone] Monocyte abs 0.4 0.2 - 0.8 K/cumm [facility] Comment:Testing performed by : [facility], [address] [place] [phone] Eosinophil abs 0.1 0.0 - 0.5 K/cumm [facility] Comment:Testing performed by : [facility], [address] [place] [phone] Basophil abs 0.0 0.0 - 0.1 K/cumm [facility] Comment:Testing performed by : [facility], [address] [place] [phone] Neutrophil pct 65.4 % [facility] Comment: Interpretive Data Percent cell count reference ranges are not reported, since discordance with absolute values may lead to misinterpretation of CBC data. Current Interpretive Data was last revised on 2018. Testing performed by: [facility], [address] [place] [phone] Lymphocyte pct 21.8 % [facility] Comment: Interpretive Data Percent cell count reference ranges are not reported, since discordance with absolute values may lead to misinterpretation of CBC data. Current Interpretive Data was last revised on 2018. Testing performed by: [facility], [address] [place] [phone] Monocyte pct 10.8 % [facility] Comment: Interpretive Data Percent cell count reference ranges are not reported, since discordance with absolute values may lead to misinterpretation of CBC data. Current Interpretive Data was last revised on 2018. Testing performed by: [facility], [address] [place], [place] [id number] Eosinophil pct 1.8 % [facility] Comment: Interpretive Data Percent cell count reference ranges are not reported, since discordance with absolute values may lead to misinterpretation of CBC data. Current Interpretive Data was last revised on 2018. Testing performed by: [facility], [address] [place] [phone] Basophil pct 0.2 % [facility] Comment: Interpretive Data Percent cell count reference ranges are not reported, since discordance with absolute values may lead to misinterpretation of CBC data. Current Interpretive Data was last revised on 2018. Testing performed by: [facility], [address] [place] [phone] Blood 10/03/2024 7:34 AM SCHOOL SUPERVISOR 10/03/2024 7:37 AM SCHOOL SUPERVISOR us Stan Meza MD LAB BLOOD ORDERABLES Yolette l Result [facility] [place] [address] * (ABNORMAL) CBC with auto differential (10/03/2024 7:34 AM SCHOOL SUPERVISOR) WBC 3.8 3.8 - 9.9 K/cumm Comment:Testing performed by : [facility], [address] [place] [phone] Hgb 9.0(L) 13.0 - 17.5 g/dL [facility] Comment:Testing performed by : [facility], [address] [place], [place] [phone] Hct 27.9(L) 38.9 - 50.3 % [facility] Comment:Testing performed by : [facility], [address] [place], [place] [phone] Plt 252 150 - 400 K/cumm [facility] Comment:Testing performed by : [facility], [address] [place], [place] [phone] MPV 6.8 6.8 - 10.4 fL [facility] Comment:Testing performed by : [facility], [address] [place], [place] [phone] RBC 3.40(L) 4.30 - 5.80 M/cumm [facility] Comment:Testing performed by : [facility], [address] [place], [place] [phone] MCV 82.0 81.3 - 96.4 fL [facility] Comment:Testing performed by : [facility], [address] [place], [place] [phone] MCH 26.6(L) 27.1 - 33.3 pg [facility] Comment:Testing performed by : [facility], [address] [place], [place] [phone] MCHC 32.4 32.3 - 35.7 g/dL [facility] Comment:Testing performed by : [facility], [address] [place], [place] [phone] RDW CV 17.7(H) 11.1 - 14.9 % [facility] Comment:Testing performed by : [facility], [address] [place], [place] [phone] NRBC abs 0.00 0.00 - 0.01 K/cumm [facility] Comment:Testing performed by : [facility], [address] [place], [place] [phone] Blood 10/03/2024 7:34 AM SCHOOL SUPERVISOR 10/03/2024 7:37 AM SCHOOL SUPERVISOR Stan Meza MD LAB BLOOD ORDERABLES Yolette l Result Performing Organization Address [facility] Co de Phone Number [facility] [place] [address] * eGFR (09/25/2024 7:43 AM SCHOOL SUPERVISOR) eGFR >90 >=60 mL/min/1. 73 m2 Comment: [...] last reviewed 2021. Blood 09/25/2024 7:43 AM SCHOOL SUPERVISOR 09/25/2024 7:51 AM SCHOOL SUPERVISOR Stan Meza MD LAB BLOOD ORDERABLES Yolette l Result Performing Organization Address [facility] Co de Phone Number [facility] Department [facility] [employer] [place], [place] [id number] * (ABNORMAL) Differential, auto (09/25/2024 7:43 AM SCHOOL SUPERVISOR) Neutrophil abs 4.1 1.5 - 6.5 K/cumm Comment:Testing performed by : [facility], [address] [place], [place] [id number] Lymphocyte abs 0.8 0.8 - 3.3 K/cumm [facility] Comment:Testing performed by : [facility], [address] [place], [place] [id number] Monocyte abs 0.9(H) 0.2 - 0.8 K/cumm [facility] Comment:Testing performed by : [facility], [address] [place], [place] [id number] Eosinophil abs 0.1 0.0 - 0.5 K/cumm [facility] Comment:Testing performed by : [facility], [address] [place], [place] [id number] Basophil abs 0.1 0.0 - 0.1 K/cumm [facility] Comment:Testing performed by : [facility], [address] [place] [phone] Neutrophil pct 69.0 % [facility] Comment: Interpretive Data Percent cell count reference ranges are not reported, since discordance with absolute values may lead to misinterpretation of CBC data. Current Interpretive Data was last revised on 2018. Testing performed by: [facility], [address] [place] [phone] Lymphocyte pct 13.4 % [facility] Comment: Interpretive Data Percent cell count reference ranges are not reported, since discordance with absolute values may lead to misinterpretation of CBC data. Current Interpretive Data was last revised on 2018. Testing performed by: [facility], [address] [place] [address] Monocyte pct 15.3 % [facility] Comment: Interpretive Data Percent cell count reference ranges are not reported, since discordance with absolute values may lead to misinterpretation of CBC data. Current Interpretive Data was last revised on 2018. Testing performed by: [facility], [address] [place] [phone] Eosinophil pct 1.3 % [facility] Comment: Interpretive Data Percent cell count reference ranges are not reported, since discordance with absolute values may lead to misinterpretation of CBC data. Current Interpretive Data was last revised on 2018. Testing performed by: [facility], [address] [place] [phone] Basophil pct 1.0 % [facility] Comment: Interpretive Data Percent cell count reference ranges are not reported, since discordance with absolute values may lead to misinterpretation of CBC data. Current Interpretive Data was last revised on 2018. Testing performed by: [facility], [address] [place] [phone] Blood 09/25/2024 7:43 AM SCHOOL SUPERVISOR 09/25/2024 7:48 AM SCHOOL SUPERVISOR Stan Meza MD LAB BLOOD ORDERABLES Yolette l Result [facility] [place] [address] * (ABNORMAL) CBC with auto differential (09/25/2024 7:43 AM SCHOOL SUPERVISOR) WBC 5.9 3.8 - 9.9 K/cumm Comment:Testing performed by : [facility], [address] [place] [phone] Hgb 9.7(L) 13.0 - 17.5 g/dL [facility] Comment:Testing performed by : [facility], [address] [place] [address] Hct 30.5(L) 38.9 - 50.3 % [facility] Comment:Testing performed by : [facility], [address] [place] [address] Plt 350 150 - 400 K/cumm [facility] Comment:Testing performed by : [facility], [address] [place] [address] MPV 6.5(L) 6.8 - 10.4 fL [facility] Comment:Testing performed by : [facility], [address] [place] [address] RBC 3.72(L) 4.30 - 5.80 M/cumm [facility]DO [facility] Comment:Testing performed by : [facility], [address] [place] [address] MCV 82.1 81.3 - 96.4 fL [facility] Comment:Testing performed by : [facility], [address] [place] [address] MCH 26.1(L) 27.1 - 33.3 pg [facility] Comment:Testing performed by : [facility], [address] [place] [address] MCHC 31.8(L) 32.3 - 35.7 g/dL [facility] Comment:Testing performed by : [facility], [address] [place] [address] RDW CV 17.1(H) 11.1 - 14.9 % [facility] Comment:Testing performed by : [facility], [address] [place] [address] NRBC abs 0.00 0.00 - 0.01 K/cumm [facility] Comment:Testing performed by : [facility], [address] [place] [address] Blood 09/25/2024 7:43 AM SCHOOL SUPERVISOR 09/25/2024 7:48 AM SCHOOL SUPERVISOR us Stan Meza MD LAB BLOOD ORDERABLES Yolette veronika Result [facility] [place] [address] * (ABNORMAL) Comprehensive metabolic panel (09/25/2024 7:43 AM SCHOOL SUPERVISOR) Sodium 135 135 - 145 mmol/L Potassium, pl 4.2 3.3 - 4.9 mmol/L [facility] Chloride 98 97 - 110 mmol/L [facility] CO2 30 22 - 32 mmol/L [facility] Anion gap 7 2 - 15 mmol/L [facility] BUN 5(L) 6 - 25 mg/dL [facility] Creatinine 0.73(L) 0.80 - 1.30 mg/dL [facility] Glucose 99 70 - 199 mg/dL [facility] Comment: Interpretive Data Fasting glucose >/= [...] 2022. Calcium 9.3 8.5 - 10.3 mg/dL [facility] Bilirubin, total 0.2 0.1 - 1.2 mg/dL [facility] Protein, pl 6.6 6.5 - 8.5 g/dL [facility] Albumin 3.3(L) 3.5 - 5.0 g/dL [facility] Alk phos 172(H) 40 - 130 Units/L [facility] ALT 18 7 - 55 Units/L [facility] AST 17 10 - 50 Units/L [facility] Blood 09/25/2024 7:43 AM SCHOOL SUPERVISOR 09/25/2024 7:51 AM SCHOOL SUPERVISOR us Stan Meza MD LAB BLOOD ORDERABLES Yolette banda Result [facility] [place] [address] * CT Body Outside Reference (09/17/2024 11:19 AM SCHOOL SUPERVISOR) Impressions [facility] - 09/17/2024 11:19 AM SCHOOL SUPERVISOR These images are for Reference purposes only and have not been reviewed by [facility]. ??There will be no report generated by a [facility]. Narrative [facility] - 09/17/2024 11:19 AM SCHOOL SUPERVISOR EXAMINATION: ??Images For Reference Purposes Only us Stan Meza MD IMG CT PROCEDURES Final R esult [facility] * (ABNORMAL) Differential, auto (09/05/2024 8:03 AM SCHOOL SUPERVISOR) Neutrophil abs 1.6 1.5 - 6.5 K/cumm Comment:Testing performed by : [facility], [address] [place], [place] [phone] Lymphocyte abs 0.4(L) 0.8 - 3.3 K/cumm [facility] Comment:Testing performed by : [facility], [address] [place], [place] [id number] Monocyte abs 0.4 0.2 - 0.8 K/cumm [facility] Comment:Testing performed by : [facility], [address] [place] [phone] Eosinophil abs 0.0 0.0 - 0.5 K/cumm [facility] Comment:Testing performed by : [facility], [address] [place] [phone] Basophil abs 0.0 0.0 - 0.1 K/cumm [facility] Comment:Testing performed by : [facility], [address] [place] [phone] Neutrophil pct 65.0 % [facility] Comment: Interpretive Data Percent cell count reference ranges are not reported, since discordance with absolute values may lead to misinterpretation of CBC data. Current Interpretive Data was last revised on 2018. Testing performed by: [facility], [address] [place] [phone] Lymphocyte pct 16.1 % [facility] Comment: Interpretive Data Percent cell count reference ranges are not reported, since discordance with absolute values may lead to misinterpretation of CBC data. Current Interpretive Data was last revised on 2018. Testing performed by: [facility], [address] [place] [phone] Monocyte pct 17.4 % CHEMA RESEND[facility] Comment: Interpretive Data Percent cell count reference ranges are not reported, since discordance with absolute values may lead to misinterpretation of CBC data. Current Interpretive Data was last revised on 2018. Testing performed by: [facility], [address] [place] [phone] Eosinophil pct 0.6 % [facility] RESEND[facility] Comment: Interpretive Data Percent cell count reference ranges are not reported, since discordance with absolute values may lead to misinterpretation of CBC data. Current Interpretive Data was last revised on 2018. Testing performed by: [facility], [address] [place] [phone] Basophil pct 0.9 % [facility] RESENDIZ Comment: Interpretive Data Percent cell count reference ranges are not reported, since discordance with absolute values may lead to misinterpretation of CBC data. Current Interpretive Data was last revised on 2018. Testing performed by: [facility], [address] [place] [phone] Blood 09/05/2024 8:03 AM SCHOOL SUPERVISOR 09/05/2024 8:04 AM SCHOOL SUPERVISOR us Stan Meza MD LAB BLOOD ORDERABLES Yolette banda [facility] [place] [address] * (ABNORMAL) CBC with auto differential (09/05/2024 8:03 AM SCHOOL SUPERVISOR) WBC 2.5(L) 3.8 - 9.9 K/cumm Comment:Testing performed by : [facility], [address] [place] [phone] Hgb 10.8(L) 13.0 - 17.5 g/dL [facility] Comment:Testing performed by : [facility], [address] [place], [place] [phone] Hct 33.7(L) 38.9 - 50.3 % [facility] Comment:Testing performed by : [facility], [address] [place], [place] [phone] Plt 103(L) 150 - 400 K/cumm [facility] Comment:Testing performed by : [facility], [address] [place], [place] [phone] MPV 7.1 6.8 - 10.4 fL [facility] Comment:Testing performed by : [facility], [address] [place], [place] [phone] RBC 4.04(L) 4.30 - 5.80 M/cumm [facility] Comment:Testing performed by : [facility], [address] [place], [place] [phone] MCV 83.5 81.3 - 96.4 fL [facility] Comment:Testing performed by : [facility], [address] [place], [place] [phone] MCH 26.7(L) 27.1 - 33.3 pg [facility] Comment:Testing performed by : [facility], [address] [place], [place] [phone] MCHC 32.0(L) 32.3 - 35.7 g/dL [facility] Comment:Testing performed by : [facility], [address] [place], [place] [phone] RDW CV 15.3(H) 11.1 - 14.9 % [facility] Comment:Testing performed by : [facility], [address] [place] [address] NRBC abs 0.00 0.00 - 0.01 K/cumm [facility] Comment:Testing performed by : [facility], [address] [place], [place] [phone] Blood 09/05/2024 8:03 AM SCHOOL SUPERVISOR 09/05/2024 8:04 AM SCHOOL SUPERVISOR us Stan Meza MD LAB BLOOD ORDERABLES Yolette l Result Performing Organization Address [facility] Co de Phone Number [facility] [place] [address] * eGFR (09/05/2024 7:51 AM SCHOOL SUPERVISOR) eGFR >90 >=60 mL/min/1. 73 m2 Comment: [...] last reviewed 2021. Blood 09/05/2024 7:51 AM SCHOOL SUPERVISOR 09/05/2024 8:15 AM SCHOOL SUPERVISOR us Satn Meza MD LAB BLOOD ORDERABLES Yolette l Result Performing Organization Address [facility]/ZIP Co de Phone Number [facility] [place] [address] * (ABNORMAL) Comprehensive metabolic panel (09/05/2024 7:51 AM SCHOOL SUPERVISOR) Sodium 135 135 - 145 mmol/L Potassium, pl 3.8 3.3 - 4.9 mmol/L [facility] Chloride 98 97 - 110 mmol/L [facility] CO2 29 22 - 32 mmol/L [facility] Anion gap 8 2 - 15 mmol/L [facility] BUN 5(L) 6 - 25 mg/dL [facility] Creatinine 0.72(L) 0.80 - 1.30 mg/dL [facility] Glucose 99 70 - 199 mg/dL [facility] Comment: Interpretive Data Fasting glucose >/= [...] 2022. Calcium 8.9 8.5 - 10.3 mg/dL [facility] Bilirubin, total 0.3 0.1 - 1.2 mg/dL [facility] Protein, pl 6.9 6.5 - 8.5 g/dL [facility] Albumin 3.4(L) 3.5 - 5.0 g/dL [facility] Alk phos 160(H) 40 - 130 Units/L [facility] ALT 24 7 - 55 Units/L [facility] AST 21 10 - 50 Units/L [facility] Blood 09/05/2024 7:51 AM SCHOOL SUPERVISOR 09/05/2024 8:15 AM SCHOOL SUPERVISOR us Stan Meza MD LAB BLOOD ORDERABLES Yolette banda Result [facility] [place] [address] from Last 3 Months Insurance [facility] Care Teams Internet Sales Associate Relationship Specialty Start Date End Date Matthew Mccabe MD [address] [place] [id number] PCP - General Family Medicine 05/13/24 Stan Meza MD [address] [facility], [address] [place] [address] Medical Oncologist/Security Threat Analyst Medical Oncology 06/28/24
--- OUTSIDE RECORDS SUMMARY | 2024-12-04 07:24 | XMS_ITS | Clinical Summary ---
Author Organization [facility] Address [address] [place] [address] Phone Care Team Providers Care Heating Operators Engineer Name Role Phone SADIE JACK MD Unavailable [...] On 0 10:36AM By PAUL DAVIS-ANAYA ; [facility] Gabapentin 600 MG Oral Tablet 05/26/2020 Provider: PAUL MAJANO Diagnosis: Radiculopathy, l umbar region TAKE 1 TABLET BY MOUTH THREE TIMES DAILY. Last Documented On 0 2:54PM By PAUL NUNEZ ; [facility] Triamcinolone Acetonide 0.1% External Cream 10/07/2019 Provider: Diagnosis: Last Documented On 9 11:28AM By Faye MEJÍA ; [facility] Spironolactone 50 MG Oral Tablet 10/07/2019 Provider : Diagnosis: Last Documented On 9 11:27AM By Faye MEJÍA ; [facility] Omeprazole 40 MG Oral Capsule [...] Subscriber Relationship Effect jeannine Dates 1 - [facility] [id number] RYLEE GRAY Self Clinical Notes Includes: Clinical Notes from this encounter No Clinical Notes Recorded
--- OUTSIDE RECORDS SUMMARY | 2024-12-04 07:24 | XMS_ITS | Encounter Summary ---
Author Organization [facility] Address [address] [place] [address] Care Team Providers Care Smoke Room Operator Name Role Phone Ian Pollock MD Primary Care Provider [phone] Ian Pollock MD Primary Care Provider [phone] Ian Pollock MD Primary Care Provider [phone] Ian Pollock MD Primary Care Provider [phone] Ian Pollock MD Primary Care Provider [phone] Katina Casiano DO Unavailable [phone] Xavi ACOSTA MD, Jameel R Primary Care Provider + Katina Casiano DO Unavailable [phone] Tracey Ang PA Unavailable [phone] Belkis Angel INVESTIGATIVE RESEARCH SPECIALIST-MOLD OPERATOR Primary Care Provider + Natalie Baum Primary Care Provider [phone] Reason for Visit * Reason Onset Date Comments General 12/02/2019 Encounter Details Date Type Department Care Team (Late st Contact Info) Description 12/02/2019 Telephone [facility] General Internal Medicine [address] [place] [address] Ian Plolock MD [address] DIV OF [place] [address] General Social History Tobacco Use Types Packs/Day [...] vulgar language and then abruptlydisconnect line. CB# [phone] Routed to provider for further review UCTION RECOVERY OPERATOR documented in this encounter Plan of [...] on filedocumented in this encounter Care Teams Smoke Room Operator Relationship Specialty Start Date End Date Ian Pollock MD PCP - General 11/14/19 12/12/19 Ian Pollock MD PCP - General 12/13/19 05/25/20 Ian Pollock MD PCP - General 05/26/20 06/15/20 Ian Pollock MD [address] OF [facility] [place] [address] PCP - General 07/31/20 08/20/20 Ian Pollock MD [address] DIV OF [facility] [place] [address] PCP - General 08/21/20 05/29/23 Jameel Hurley III, MD [address] OF [facility] [place] [address] PCP - General Internal Medicine 06/05/23 08/28/23 Belkis Angel, INVESTIGATIVE RESEARCH SPECIALIST-MOLD OPERATOR [address] [address] PCP - General Nurse Practitioner 08/29/23 05/05/24 Natalie Baum [address] [place] [address] PCP - General 05/06/24 Katina Casiano DO [address] [facility] [address] DIV OF [facility] INTERNAL MEDICINE [place], [place] Resident - PCP Internal Medicine 08/10/22 05/29/23 Katina Casiano DO [address] [facility] [address] DIV OF [facility] INTERNAL MEDICINE [place], [place] Hospitalist 06/05/23 Tracey Ang PA [address] [facility] [address] [place] [address] Physician Promotion Writer 08/15/23 documented as of this encounter
--- NOTE | 2024-12-04 07:34 | PC.NURSE ---
Addendum entered by Nacho Yuan RN 12/04/24 07:57: Pt now stating it feels like something is stuck in his throat like congestion and not his nose per pt Original Note: Pt ambulated in hallway with steady gait/ SBA with no issues or concerns r/t O2 sat. 02 sat remained between 95%-99% on room air.Pt denied SOB, CP or dizziness before,during and after ambulation. Pt only c/o feeling like something is blocking right nostril that is not coming out when I blow my nose .
[2024-12-04 08:16] LABS: Influenza A QL RT-PCR Negative (Negative); Influenza B QL RT-PCR Negative (Negative); RSV RNA, RT-PCR Negative (Negative); SARS-CoV-2 RNA PCR Negative (Negative)
[2024-12-04 09:33] VITALS: BP 162/104; PULSE 82; RESP 16; O2SAT 96
--- NOTE | 2024-12-04 09:49 | ED.GENADULT ---
HPI - General Adult General Chief complaint: Shortness of Breath/Dyspnea Stated complaint: SOB Time Seen by Provider: 12/04/24 07:06 History of Present Illness HPI narrative: this patient is 64-year-old gentleman presents emergency department with chief complaint of cough patient reports he is being treated for lung cancer reports that he was diagnosed with pneumonia 2 months ago was postobstructive. The patient states that he has history of COPD CHF and history of asthma. Related Data Home Medications ?Medication ?Instructions ?Recorded ?Confirmed ?Last Taken ?Type latanoprost 0.005 % eye drops 1 drp ophthalmic (eye) DAILY 05/05/20 09/13/24 Unknown History alfuzosin 10 mg tablet,extended 10 mg PO DAILY 12/12/23 09/13/24 Unknown History release 24 hr aspirin 81 mg tablet,delayed 81 mg PO DAILY 12/12/23 09/13/24 Unknown History release (Adult Aspirin Regimen) atorvastatin 40 mg tablet 40 mg PO DAILY 12/12/23 09/13/24 Unknown History buspirone 7.5 mg tablet 7.5 mg PO BID 12/12/23 09/13/24 Unknown History carvedilol 12.5 mg tablet 12.5 mg PO Q12H 12/12/23 09/13/24 Unknown History eplerenone 25 mg tablet 25 mg PO DAILY 12/12/23 09/13/24 Unknown History hydroxyzine pamoate 100 mg capsule 100 mg PO Q12H 12/12/23 09/13/24 Unknown History lamotrigine 100 mg tablet 100 mg PO DAILY 12/12/23 09/13/24 Unknown History loratadine 10 mg tablet 10 mg PO DAILY 12/12/23 09/13/24 Unknown History ziprasidone HCl 80 mg capsule 80 mg PO BID 12/12/23 09/13/24 Unknown History fluticasone furoate 27.5 1 spray intranasal DAILY PRN 04/30/24 09/13/24 Unknown History mcg/actuation nasal Congestion spray,suspension tadalafil 20 mg tablet 20 mg PO DAILY PRN Erectile 04/30/24 09/13/24 Unknown History Dysfunction acetaminophen 500 mg tablet 500 mg PO Q6H PRN Pain (Scale 09/13/24 09/13/24 Unknown History Score 1-3) morphine 30 mg tablet,extended 30 mg PO Q12H 09/13/24 09/13/24 Unknown History release ondansetron HCl 8 mg tablet 8 mg PO BID PRN Nausea And Vomiting 09/13/24 09/13/24 Unknown History oxycodone 5 mg tablet 10 mg PO Q4H PRN Pain (Scale Score 09/13/24 09/13/24 Unknown History 7-10) Allergies Allergy/AdvReac Type Severity Reaction Status Date / Time lisinopril Allergy Severe ANGIOEDEMA Verified 09/13/24 10:54 Penicillins Allergy Unknown Swelling Verified 09/13/24 10:54 Review of Systems Review of Systems: A 10 system review of systems was completed on the patient and is negative except for what is stated in the HPI. Nursing and ancillary documentation was reviewed. [facility] Past Medical History Medical History Cardiomyopathy Arthritis Bronchitis Asthma COPD (chronic obstructive pulmonary disease) HTN (hypertension) Glaucoma Surgical History Surgical History History of knee replacement procedure of right knee Family History Family History Father Alcoholism Heart problem Hypertension Sibling Alcoholism Cancer Hypertension Mother Cancer Hypertension Grandparent Diabetes mellitus Heart problem Hypertension Sibling Cancer Hypertension Social History Social History Smoking packs per day: 1 Smoking cigarettes per day: 20.0 Years smoked: 40 Smoking pack-years: 40.00 Smoking status: Current every day smoker Tobacco type: cigarettes Alcohol intake: never Substance use: current Substance use type: marijuana Do You Feel Safe in your Home?: Yes Lack of Transportation: No Lack of Food: Never True Current Housing: I Have Housing Concerned About Future Housing: No Difficulty Paying Gas/Electric Bills: No Difficulty Paying for Meds: No Currently Unemployed: No Education: Associate Degree Difficulty w/ Childcare or Family Care: No Gender identity (if verbalized by the patient): Male Spiritual care concerns: No Exam Narrative: GENERAL: Well-appearing, well-nourished, and in no acute distress. HEAD: Normocephalic, atraumatic. EYES: PERRLA and EOMI. ENT: Nares clear, no rhinorrhea or epistaxis. Mucous membranes moist. NECK: Supple. CHEST: Clear to auscultation. No respiratory distress. HEART: Regular rate and rhythm. No murmur heard. Normal peripheral pulses. ABDOMEN: Soft, nontender, nondistended, normal active bowel sounds. EXTREMITIES: Normal range of motion. No edema. SKIN: Warm, dry, no rash. NEURO: No focal deficits. Alert and oriented x3. PSYCH: Normal mood and affect. Course Vital Signs Vital signs: Vital Signs Temperature 36.9 C 12/04/24 05:14 Pulse Rate 90 12/04/24 05:14 Respiratory Rate 18 12/04/24 05:14 Blood Pressure 128/98 H 12/04/24 05:14 Pulse Oximetry 97 12/04/24 05:14 Oxygen Delivery Nasal Cannula 12/04/24 05:14 Oxygen Flow Rate 3 12/04/24 05:14 Temperature 36.9 C 12/04/24 05:14 Pulse Rate 82 12/04/24 09:33 Respiratory Rate 16 12/04/24 09:33 Blood Pressure 162/104 H 12/04/24 09:33 Pulse Oximetry 96 12/04/24 09:33 Oxygen Delivery Nasal Cannula 12/04/24 06:30 Oxygen Flow Rate 3 12/04/24 06:30 Medical Decision Making MDM Narrative Medical decision making narrative: Differential diagnosis includes pneumonia, COPD exacerbation, influenza, COVID, RSV, ACS laboratory studies were obtained on the patient showed a normal CBC with a white count of 4.1 electrolytes are within normal limits troponin was negative COVID flu and RSV are negative EKG showed no acute ischemic changes chest x-ray showed atelectasis Vital Signs Vital Signs: Vital Signs Temperature 36.9 C 12/04/24 05:14 Pulse Rate 90 12/04/24 05:14 Respiratory Rate 18 12/04/24 05:14 Blood Pressure 128/98 H 12/04/24 05:14 Pulse Oximetry 97 12/04/24 05:14 Oxygen Delivery Nasal Cannula 12/04/24 05:14 Oxygen Flow Rate 3 12/04/24 05:14 Temperature 36.9 C 12/04/24 05:14 Pulse Rate 82 12/04/24 09:33 Respiratory Rate 16 12/04/24 09:33 Blood Pressure 162/104 H 12/04/24 09:33 Pulse Oximetry 96 12/04/24 09:33 Oxygen Delivery Nasal Cannula 12/04/24 06:30 Oxygen Flow Rate 3 12/04/24 06:30 Lab Data 12/04/24 06:00 12/04/24 06:00 Labs: Lab Results 12/04/24 Range/Units 06:00 WBC 4.1 L (4.5-10.0) K/mm3 RBC 3.30 L (4.6-6.20) M/mm3 Hgb 9.5 L (14.0-18.0) g/dL Hct 29.6 L (42.0-52.0) % MCV 89.7 (80-100) fl MCH 28.8 (26-34) pg MCHC 32.1 (32-36) g/dl RDW 18.5 H (11.5-14.5) % Plt Count 107 L (150-375) k/mm3 MPV 9.1 (7.4-10.4) fl Immature Gran % (Auto) 0.2 (0-0.5) % Neut % (Auto) 63.0 (45.5-73.1) % Lymph % (Auto) 12.3 L (18.3-44.2) % Independence % (Auto) 12.0 H (2.6-8.5) % Eos % (Auto) 11.3 H (0-4.4) % Baso % (Auto) 1.2 (0.2-1.2) % Lymph # (Auto) 0.50 L (0.9-3.2) K/mm3 Independence # (Auto) 0.5 (0.1-0.6) K/mm3 Eos # (Auto) 0.5 H (0-0.3) K/mm3 Baso # (Auto) 0.1 (0.0-0.1) K/mm3 Abs Immat Gran (auto) 0.01 (0.00-0.031) K/mm3 Absolute Neuts (auto) 2.6 (1.3-6.7) K/mm3 Absolute Nucleated RBC 0.000 (0.0-0.012) K/mm3 Nucleated RBC % 0.0 (0.0-0.2) % % Immature Plt Fraction 2.1 (0.9-11.2) % PT 16.2 H (11.1-14.7) Seconds INR 1.3 APTT 33.1 (22.3-36.8) Seconds Sodium 133 L (137-145) mmol/L Potassium 4.0 (3.4-5.0) mmol/L Chloride 99 (98-107) mmol/L Carbon Dioxide 26 (22-30) mmol/L Anion Gap 8 (4-12) mmol/L BUN 5 L (9-20) mg/dL Creatinine 0.56 L (0.7-1.3) mg/dL Estim Creat Clear Calc 114 ml/min Estimated GFR > 60 (59 - ) Glucose 101 (65-110) mg/dL Calcium 9.4 (8.4-10.2) mg/dL Total Bilirubin 0.5 (0.2-1.3) mg/dL AST 15 L (17-59) U/L ALT 12 (6-50) U/L Alkaline Phosphatase 121 (38-126) U/L Troponin I < 0.012 (0.000-0.034) ng/mL NT-Pro-B Natriuret Pep 93 (19.9-100) pg/mL Total Protein 7.0 (6.3-8.2) g/dL Albumin 3.7 (3.5-5.1) g/dL Influenza A (RT-PCR) Negative (Negative) Influenza B (RT-PCR) Negative (Negative) RSV (RT-PCR) Negative (Negative) SARS-CoV-2 RNA (RT-PCR) Negative (Negative) Discharge Plan Discharge Clinical Impression: Acute exacerbation of chronic obstructive pulmonary disease Patient Disposition: Home, Self-Care Condition: Stable Instructions: Antibiotic Form, COPD (Chronic Obstructive Pulmonary Disease) (ED) Patient Language: Grenadian Prescriptions: New prednisone 20 mg tablet 40 mg PO DAILY 5 Days Qty: 10 0RF No Action omeprazole 40 mg capsule,delayed release(DR/EC) 40 mg PO DAILY Qty: 90 3RF clotrimazole 10 mg humberto 10 mg mucous membrane TID Qty: 30 0RF albuterol sulfate 90 mcg/actuation HFA aerosol inhaler See Rx Instructions .ROUTE .COMPLEX Qty: 8.5 3RF Dose Instruction: INHALE 1-2 PUFF(S) BY MOUTH EVERY 4 - 6 HOURS NEEDED FOR SHORTNESS OF BREATH OR WHEEZING Rx Instructions: INHALE 1-2 PUFF(S) BY MOUTH EVERY 4 - 6 HOURS NEEDED FOR SHORTNESS OF BREATH OR WHEEZING alfuzosin 10 mg tablet extended release 24 hr 10 mg PO DAILY Rx Instructions: administer after the same meal each day eplerenone 25 mg tablet 25 mg PO DAILY ziprasidone HCl 80 mg capsule 80 mg PO BID Rx Instructions: give with food (meal/snack) carvedilol 12.5 mg tablet 12.5 mg PO Q12H Rx Instructions: must administer with a meal/food buspirone 7.5 mg tablet 7.5 mg PO BID aspirin [Adult Aspirin Regimen] 81 mg tablet,delayed release (DR/EC) 81 mg PO DAILY loratadine 10 mg tablet 10 mg PO DAILY atorvastatin 40 mg tablet 40 mg PO DAILY lamotrigine 100 mg tablet 100 mg PO DAILY hydroxyzine pamoate 100 mg capsule 100 mg PO Q12H fluticasone furoate 27.5 mcg/actuation spray,suspension 1 spray intranasal DAILY PRN (Reason: Congestion) Rx Instructions: into each nostril tadalafil 20 mg tablet 20 mg PO DAILY PRN (Reason: Erectile Dysfunction) nicotine 14 mg/24 hr patch 24 hour 1 patch transdermal DAILY Qty: 28 2RF Eliquis 5 mg tablet 5 mg PO BID Qty: 60 5RF latanoprost 0.005 % Drops 1 drp OPHTHALMIC (EYE) DAILY ondansetron 4 mg tablet,disintegrating 4 mg PO Q4H 0 Days Qty: 10 0RF Rx Instructions: 1st dose 1-2 hr before radiation ondansetron HCl 8 mg tablet 8 mg PO BID PRN (Reason: Nausea And Vomiting) morphine 30 mg tablet extended release 30 mg PO Q12H acetaminophen 500 mg Tablet 500 mg PO Q6H PRN (Reason: Pain (Scale Score 1-3)) oxycodone 5 mg tablet 10 mg PO Q4H PRN (Reason: Pain (Scale Score 7-10)) cefdinir 300 mg capsule 300 mg PO Q12H 7 Days Qty: 14 0RF doxycycline hyclate 100 mg tablet,delayed release (DR/EC) 100 mg PO BID 7 Days Qty: 14 0RF budesonide-formoterol [Symbicort] 160-4.5 mcg/actuation HFA aerosol inhaler See Rx Instructions .ROUTE .COMPLEX Qty: 10.2 5RF Dose Instruction: INHALE 2 PUFFS BY MOUTH TWICE A DAY Rx Instructions: INHALE 2 PUFFS BY MOUTH TWICE A DAY. RINSE AND SPIT losartan 50 mg tablet See Rx Instructions .ROUTE .COMPLEX Qty: 30 5RF Dose Instruction: TAKE 1 TABLET BY MOUTH EVERY DAY Rx Instructions: TAKE 1 TABLET BY MOUTH EVERY DAY ipratropium-albuterol 0.5 mg-3 mg(2.5 mg base)/3 mL solution for nebulization 3 ml inhalation QID PRN (Reason: shortness of breath or wheezing) Qty: 360 3RF Follow-up/Referrals: Matthew Mccabe MD [Primary Care Provider] - Time of Disposition: 09:54
== END 2024-12-04 10:24 | disposition home or self-care (01) ==
PROVIDERS: Student in an Organized Health Care Education/Training Program; Emergency Provider Emergency Medicine; PCP Family Medicine Adolescent Medicine
DX: J44.1 Chronic obstructive pulmonary disease with (acute) exacerbation (principal); Z85.118 Personal history of other malignant neoplasm of bronchus and lung; I50.9 Heart failure, unspecified; J45.909 Unspecified asthma, uncomplicated; I11.0 Hypertensive heart disease with heart failure; H40.9 Unspecified glaucoma; F17.210 Nicotine dependence, cigarettes, uncomplicated
CPT/HCPCS: 36415; 71046; 80053; 83880; 84484; 85025; 85055; 85610; 85730; 87637; 93005; 99284

== ENCOUNTER 2024-12-12 20:00 | Emergency (ER) | payer OTHER, SELFPAY ==
--- NOTE | ~2024-12-12 | XR_ITS ---
CHEST RADIOGRAPH, PA AND LATERAL CLINICAL HISTORY: sob, hx lung cancer . COMPARISON: 12/04/2024 and 10/23/2024 TECHNIQUE: PA and lateral views of the chest. FINDINGS The cardiomediastinal silhouette is unremarkable. Redemonstration of linear scar within the left upper lobe. Elevation of the left hemidiaphragm is identified with adjacent compressive atelectasis. The remainder of the lungs are clear. IMPRESSION: No focal infiltrate or effusion. Reviewed, dictated and finalized at location A. CIL PRINTER
--- OUTSIDE RECORDS SUMMARY | 2024-12-12 20:03 | XMS_ITS | Encounter Summary ---
Author Organization [facility] Address [address] [facility] [place] [address] Care Team Providers Care Geophysical Party Chief Name Role Phone Ian Pollock MD Primary Care Provider [phone] Katina Casiano DO Unavailable [phone] Xavi ACSOTA MD, Jameel Gaviria Primary Care Provider + Katina Casiano DO Unavailable [phone] Tracey Ang PA Unavailable [phone] Belkis Angel AUTOMATIC BRINE MIXER OPERATOR-ORTHOPEDIC PHYSICAL THERAPIST Primary Care Provider + Natalie Baum Primary Care Provider [phone] Encounter Details Date Type Department Care Team (Late st Contact Info) Description 04/22/2021 Telephone [facility] [address] [place] [address] Kezia Hollis MD [address] OF PULMONARY/[place] [address] Social History Tobacco Use Types [...] stay with Dr. Hollis? Call Back #: [phone] documented in this encounter Plan of Treatment [...] on filedocumented in this encounter Care Teams Geophysical Party Chief Relationship Specialty Start Date End Date Ian Pollock MD [address] DIV OF [facility] [place] [address] PCP - General 08/21/20 05/29/23 Jameel Hurley III, MD [address] DIV OF [facility] [place] [address] PCP - General Internal Medicine 06/05/23 08/28/23 Belkis Angel APRN-ORTHOPEDIC PHYSICAL THERAPIST [address] [place] [address] PCP - General Nurse Practitioner 08/29/23 05/05/24 Natalie Baum [address] [place] [address] PCP - General 05/06/24 Katina Casiano DO [address] [facility] [address] DIV OF GEN INTERNAL MEDICINE [place], [place] Resident - PCP Internal Medicine 08/10/22 05/29/23 Katina Casiano DO [address] [facility] [address] DIV OF GEN INTERNAL MEDICINE [place], [place] Hospitalist 06/05/23 Tracey Ang PA [address] [facility] [address] [place] [address] Physician Aix Architect 08/15/23 documented as of this encounter
--- OUTSIDE RECORDS SUMMARY | 2024-12-12 20:03 | XMS_ITS | Encounter Summary ---
Author Organization [facility] Address [address] [place] [address] Care Team Providers Care Manager Physical Name Role Phone Ian Pollock MD Primary Care Provider Katina Casiano DO Unavailable [phone] Xavi ACOSTA MD, Jameel Gaviria Primary Care Provider + Katina Casiano DO Unavailable [phone] Tracey Ang PA Unavailable [phone] Belkis Angel COOK VEGETABLE-RN EXAMINER Primary Care Provider + Natalie Baum Primary Care Provider [phone] Reason for Visit * Reason Onset Date Comments Letter 12/02/2020 Encounter Details Date Type Department Care Team (Late st Contact Info) Description 12/02/2020 Telephone [facility] Pulmonary, Critical Care and Sleep Medicine [address] [place] [address] Agnieszka Haas MD [address] [place] [address] Letter Social History Tobacco Use Types Packs/Day [...] COVID-19? Unable to assess 11/18/2020 1:41 PM ROLL OR TAPE EDGE MACHINE OPERATOR documented as of this encounter [...] vaccine sooner Thanks. Patient Call Back number: [phone] OR TAPE EDGE MACHINE OPERATOR documented in this encounter Plan [...] filedocumented in this encounter Care Teams Manager Physical Relationship Specialty Start Date End Date Ian Pollock MD [address] [place] [address] PCP - General 08/21/20 05/29/23 Jameel Hurley III, MD [address] [facility] [place] [address] PCP - General Internal Medicine 06/05/23 08/28/23 Belkis Angel APRN-RN EXAMINER [address] [place] [address] PCP - General Nurse Practitioner 08/29/23 05/05/24 Natalie Baum [address] [place] [address] PCP - General 05/06/24 Katina Casiano DO [address] DIV OF GEN INTERNAL MEDICINE [place], [place] Resident - PCP Internal Medicine 08/10/22 05/29/23 Katina Casiano DO [address] [facility] [address] DIV OF GEN INTERNAL MEDICINE [place], [place] Hospitalist 06/05/23 Tracey Ang PA [address] [facility] [address] [place] [address] Physician Tube And Rod Straightener 08/15/23 documented as of this encounter
--- OUTSIDE RECORDS SUMMARY | 2024-12-12 20:03 | XMS_ITS | Encounter Summary ---
Author Organization [facility] Address [address] [facility] [place] [address] Care Team Providers Care Connie Cleaner Name Role Phone Ian Pollock MD Primary Care Provider [phone] Katina Casiano DO Unavailable [phone] Xavi ACOSTA MD, Jameel R Primary Care Provider + Katina Casiano DO Unavailable [phone] Tracey Ang PA Unavailable [phone] Belkis Angel FARM SERVICE CONSULTANT-SPECIAL FORCES WARRANT OFFICER Primary Care Provider + Natalie Baum Primary Care Provider [phone] Reason for Visit * Reason Onset Date Comments Refill Request 04/13/2021 Encounter Details Date Type Department Care Team (Late st Contact Info) Description 04/13/2021 Telephone [facility] [address] [place] [address] Ian Pollock MD [address] [place] [address] Refill Request Social History Tobacco [...] to be refilled. Patient Call Back number: [phone] documented in this encounter Plan of Treatment [...] sciatica documented in this encounter Care Teams Connie Cleaner Relationship Specialty Start Date End Date Ian Pollock MD [address] DIV OF [facility] [place] [address] PCP - General 08/21/20 05/29/23 Jameel Hurley III, MD [address] DIV OF [facility] [place] [address] PCP - General Internal Medicine 06/05/23 08/28/23 Belkis Angel APRN-SPECIAL FORCES WARRANT OFFICER [address] [facility] 2nd [place] [address] PCP - General Nurse Practitioner 08/29/23 05/05/24 Natalie Baum [address] [place] [address] PCP - General 05/06/24 Katina Casiano DO [address] DIV OF [facility] INTERNAL [place], [place] Resident - PCP Internal Medicine 08/10/22 05/29/23 Katina Casiano DO [address] DIV OF [facility] INTERNAL [place], [place] Hospitalist 06/05/23 Tracey Ang PA [address] [facility] [address] [place] [address] Physician Employment Security Officer 08/15/23 documented as of this encounter
--- OUTSIDE RECORDS SUMMARY | 2024-12-12 20:04 | XMS_ITS | Encounter Summary ---
Author Organization [facility] Address [address] [place] [address] Phone Care Team Providers Care Senior Sas Programmer Name Role Phone Matthew Mccabe MD Primary Care Prov ider Stan Meza MD Unavailable [phone] Encounter Details Date Type Department Care Team (Late st Contact Info) Description 10/24/2024 Documentation [facility] On[facility] [address] [facility] [address] [place] [id number] Olimpia Parr, [facility] Social History Tobacco Use Types [...] on file Legal 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
--- OUTSIDE RECORDS SUMMARY | 2024-12-12 20:04 | XMS_ITS | Encounter Summary ---
Author Organization [facility] Address [facility] [place] [address] Care Team Providers Care Federal Judge Name Role Phone Amilcar Osorio MD Primary Care Provider [phone] Monica Tellez NP Primary Care Provider [phone] Encounter Details Date Type Department Care Team (Late st Contact Info) Description 04/09/2018 Hosp Visit [facility] Outpatient Therapy [address] [place], [place] [address] Grecia Hess, [place] [address] Social History Tobacco Use Types Packs/Day Years [...] on filedocumented in this encounter Care Teams Federal Judge Relationship Specialty Start Date End Date Amilcar Osorio MD [address] [facility] [address] [place] [address] PCP - General 05/01/17 09/04/19 Monica Tellez NP [address] [place] [address] PCP - General NURSE PRACTITIONER 09/05/19 documented as of this encounter
--- OUTSIDE RECORDS SUMMARY | 2024-12-12 20:04 | XMS_ITS ---
Author Organization [facility] Address [address] [place] [address] Phone Care Team Providers Care Dietitian Teacher Name Role Phone SADIE JACK MD Unavailable Unavailable Plan of Treatment Instructions to patient Intervention and counseling on cessation of tobacco use : Patient recieved smoking cessation handout Last Documented On 0 8:27AM ; [facility] Intervention and counseling on cessation of tobacco use : Patient recieved smoking cessation handout Last Documented On 0 9:50AM ; [facility] Intervention and counseling on cessation of tobacco use : Patient recieved smoking cessation handout Last Documented On 0 11:06AM ; [facility] Intervention and counseling on cessation of tobacco use : Patient recieved smoking cessation handout Last Documented On 9 11:25AM ; [facility] Education and Decision Aids were provided during visit for: Pill Count: 0 Last Documented On 0 9:52AM ; [facility] Assessments Includes: Assessments for all patient encounters Findings Encounter Date Chronic pain syndrome PAIN MANAGEMENT FO LLOW UP with PAUL L BHARATHI [facility] 04/29/2020 Last Documented On 0 2:51PM ; [facility] Lumbar canal stenosis with n eurogenic claudication PAIN MANAGEMENT FOLLOW UP with PAUL L BHARATHI [facility] 04/29/2020 Last Documented On 0 2:51PM ; [facility] Myalgia PAIN MANAGEMENT FOLLOW UP [facility] 04/29/2020 Last Documented On 0 2:51PM ; [facility] Myalgia PAIN MANAGEMENT FOLLOW UP with T KAHLIL L BHARATHI [facility] 04/29/2020 Last Documented On 0 2:51PM ; [facility] Sacroiliitis PAIN MANAGEMENT FOLLOW UP with T KAHLIL L BHARATHI [facility]- 04/29/2020 Last Documented On 0 2:51PM ; [facility] Chronic pain syndrome PAIN MANAGEMENT FO LLOW UP with PAUL L BHARATHI [facility]- 12/27/2019 Last Documented On 0 12:47PM ; [facility] Lumbar radiculopathy PAIN MANAGEMENT FOL LOW UP with PAUL L BHARATHI [facility]- 12/27/2019 Last Documented On 0 12:47PM ; [facility] Myalgia PAIN MANAGEMENT FOLLOW UP with T KAHLIL L BHARATHI [facility]- 12/27/2019 Last Documented On 0 12:47PM ; [facility] Sacroiliitis PAIN MANAGEMENT FOLLOW UP with T KAHLIL L BHARATHI [facility]- 12/27/2019 Last Documented On 0 12:47PM ; [facility] Chronic pain syndrome PAIN MANAGEMENT FO LLOW UP with PAUL L BHARATHI [facility] 11/28/2019 Last Documented On 0 11:13AM ; [facility] Lumbar radiculopathy PAIN MANAGEMENT FOL LOW UP with PAUL L BHARATHI [facility]- 11/28/2019 Last Documented On 0 11:13AM ; [facility] Myalgia PAIN MANAGEMENT FOLLOW UP with T KAHLIL L BHARATHI [facility]- 11/28/2019 Last Documented On 0 11:13AM ; [facility] Sacroiliitis PAIN MANAGEMENT FOLLOW UP with T KAHLIL L BHARATHI [facility] 11/28/2019 Last Documented On 0 11:13AM ; [facility] Chronic pain syndrome PAIN MANAGEMENT NE W CONSULT with PAUL L BHARATHI [facility]- 10/07/2019 Last Documented On 9 9:45AM ; [facility] Lumbar radiculopathy PAIN MANAGEMENT NEW CONSULT with PAUL L BHARATHI [facility]- 10/07/2019 Last Documented On 9 9:45AM ; [facility] Myalgia PAIN MANAGEMENT NEW CONSULT with PAUL L BHARATHI [facility] 10/07/2019 Last Documented On 9 9:45AM ; [facility] Sacroiliitis PAIN MANAGEMENT NEW CONSULT with PAUL DAVIS-BC 10/07/2019 Last Documented On 9 9:45AM ; [facility] Instructions Includes: Instructions for all patient encounters Instructions to patient Intervention and counseling on cessation of tobacco use : Patient recieved smoking cessation handout Last Documented On 0 8:27AM ; [facility] Intervention and counseling on cessation of tobacco use : Patient recieved smoking cessation handout Last Documented On 0 9:50AM ; [facility] Intervention and counseling on cessation of tobacco use : Patient recieved smoking cessation handout Last Documented On 0 11:06AM ; [facility] Intervention and counseling on cessation of tobacco use : Patient recieved smoking cessation handout Last Documented On 9 11:25AM ; [facility] Education and Decision Aids were provided during visit for: Pill Count: 0 Last Documented On 0 9:52AM ; [facility] Medical Equipment - Implanted Devices Includes: Current and historical Devices No Medical Equipment Recorded Medications Includes: Current and historical Medications Current Medications (continue as prescribed) Tylenol with Codeine #3 300-30 MG Oral Tablet 06/24/2020 Provider: PAUL GALLEGO Diagnosis: Radiculopathy, l umbar region 1 po BID prn Last Documented On 0 10:36AM By PAUL DAVIS-BC ; [facility] Gabapentin 600 MG Oral Tablet 05/26/2020 Provider: PAUL DAVIS -BC Diagnosis: Radiculopathy, l umbar region TAKE 1 TABLET BY MOUTH THREE TIMES DAILY. Last Documented On 0 2:54PM By PAUL DAVIS-BC ; [facility] Triamcinolone Acetonide 0.1% External Cream 10/07/2019 Provider: Diagnosis: Last Documented On 9 11:28AM By Faye MEJÍA ; [facility] Spironolactone 50 MG Oral Tablet 10/07/2019 Provider : Diagnosis: Last Documented On 9 11:27AM By Faye MEJÍA ; [facility] Omeprazole 40 MG Oral Capsule Delayed Release 10/07/20 Provider: Diagnosis: Last Documented On 9 11:27AM By Faye MEJÍA ; [facility] Ibuprofen 600 MG Oral Tablet 10/07/2019 Provider: Diagnosis: Last Documented On 9 11:27AM By Faye MEJÍA ; [facility] hydrOXYzine Pamoate 50 MG Oral Capsule 10/07/2019 Pr ovider: Diagnosis: Last Documented On 9 11:26AM By Faye MEJÍA ; [facility] Carvedilol 25 MG Oral Tablet 10/07/2019 Provider: Diagnosis: Last Documented On 9 11:26AM By Faye MEJÍA ; [facility] Past Medications on file Tylenol with Codeine #3 300-30 MG Oral Tablet 05/12/2020 - 06/23/2020 Provider: PAUL NUNEZ Diagnosis: Radiculopathy, l umbar region 1 po BID prn Last Documented On 0 10:31AM By PAUL NUNEZ ; [facility] Lyrica 150 MG Oral Capsule 04/29/2020 - 06/24/2020 Provider: PAUL NUNEZ Diagnosis: Spinal stenosis, lumbar region with neurogenic claudication 1 CAPSULE TWO TIMES A DAY Last Documented On 0 10:24AM By PAUL NUNEZ ; [facility] Gabapentin 600 MG Oral Tablet 04/10/2020 - 05/26/2020 Provider: PAUL NUNEZ Diagnosis: Radiculopathy, l umbar region TAKE 1 TABLET BY MOUTH THREE TIMES DAILYdo not fill before 04/14/20 Last Documented On 0 2:41PM By PAUL NUNEZ ; [facility] Gabapentin 600 MG Oral Tablet 03/16/2020 - 04/09/2020 Provider: PAUL NUNEZ Diagnosis: Radiculopathy, l umbar region TAKE 1 TABLET BY MOUTH THREE TIMES DAILY Last Documented On 0 7:19AM By PAUL DEMARCO ; [facility] Gabapentin 600 MG Oral Tablet 02/19/2020 - 03/16/2020 Provider: PAUL DEMARCO Diagnosis: Radiculopathy, l umbar region One tablet three times a day Last Documented On 0 2:26PM By PAUL DEMARCO ; [facility] Tylenol with Codeine #3 300-30 MG Oral Tablet 02/19/2020 - 05/11/2020 Provider: PAUL DEMARCO Diagnosis: Radiculopathy, l umbar region 1 po TID pr01/25/20 fill date Last Documented On 0 8:42AM By PAUL DEMARCO ; [facility] Tylenol with Codeine #3 300-30 MG Oral Tablet 01/23/2020 - 02/19/2020 Provider: PAUL DEMARCO Diagnosis: Radiculopathy, l umbar region 1 po BID pr01/25/20 fill date Last Documented On 0 2:53PM By PAUL EDMARCO ; [facility] Tylenol with Codeine #3 300-30 MG Oral Tablet 12/27/2019 - 01/22/2020 Provider: PAUL DEMARCO Diagnosis: Radiculopathy, l umbar region 1 po BID prn Last Documented On 0 12:53PM By PAUL NUNEZ ; [facility] Tylenol with Codeine #3 300-30 MG Oral Tablet 11/28/2019 - 12/27/2019 Provider: PAUL DEMARCO Diagnosis: Radiculopathy, l umbar region 1 po BID prn Last Documented On 0 10:22AM By PAUL DEMARCO ; [facility] Gabapentin 300 MG Oral Capsule 11/05/2019 - 04/29/2020 Provider: PAUL DEMARCOBC Diagnosis: Radiculopathy, l umbar region One tablet three times a day Last Documented On 0 8:29AM By Faye MEJÍA ; [facility] Gabapentin 300 MG Oral Capsule 10/07/2019 - 11/05/2019 Provider: PAUL NUNEZ Diagnosis: Radiculopathy, l umbar region as directed QHS x 3 days, BI D x 3 days then TID Last Documented On 0 12:20PM By PAUL NUNEZ ; [facility] Medications Administered Includes: Administered Medications in patient's chart No Administered Medications Recorded Results Includes: Results from 12/12/2023 through 12/12/2024 No Results Recorded For Specified Dates History of Present Illness History of Present Illness not supported for this document type No History of Present Illness Recorded Social History Description Last Updated Smoker 04/29/2020 Last Documented On 0 2:51PM ; [facility] Smoking status : Current everyday smoker 10/07/2019 Last Documented On 9 9:45AM ; [facility] Medical History Includes: Medical History in patient's chart Description Last Updated Reviewed and Unchanged 12/27/2019 Last Documented On 0 12:47PM ; [facility] Family History Includes: Family History in patient's [...] Active Last Documented On 0 8:29AM ; [facility] Lisinopril Allergy 10/07/2019 Active Last Documented On 0 8:29AM ; [facility] Insurance Includes: Active Insurance Policies Plan Name Member ID Group # Subscriber Relationship Effect jeannine Dates 1 - [employer] [facility] [id number] RYLEE GRAY Self Clinical Notes Includes: Signed Clinical Notes starting from 11/18/2022 No Clinical Notes Recorded
--- OUTSIDE RECORDS SUMMARY | 2024-12-12 20:04 | XMS_ITS | Clinical Summary ---
Author Organization [facility] Address [address] [place] [address] Care Team Providers Care Pressure Tester Name Role Phone Katina Casiano DO Unavailable [phone] Tracey Ang PA Unavailable [phone] Natalie Baum Primary Care Provider [phone] Source Comments [facility],non-owned Affiliates and Associated Physician Practices is amultiple site organization consisting of ambulatory clinics and hospital sitesin [place], [place], [place] and [place]. This disclosure is being madepursuant to the Care Everywhere program and may not contain all information available regarding this patient. Last updated 18.[facility] Allergies Active Allergy Reactions Criticality Noted Date [...] MG/3ML) 0.083% nebulizer solutionIndicati ons:Centrilobula r emphysema (HCC),Asthma-RUNWAY MODEL D overlap syndrome (HCC) Inhale 2.5 (two [...] Active Symbicort 160-4.5 MCG/ACT inhalerIndicatio ns:Centrilobular emphysema (HCC),Asthma-RUNWAY MODEL D overlap syndrome (HCC) Inhale 2 (two) puffs by mouth once daily 10.2 g 3 08/29/2023 Active albuterol HFA (Proventil; Ventolin; Proair) 108 (90 Base) MCG/ACT inhalerIndicatio ns:Centrilobular emphysema (HCC),Asthma-RUNWAY MODEL D overlap syndrome (HCC) Inhale 2 (two) [...] 01/04/2023 Assessment & Plan (01/04/2023 2:27 PM BROKER ASSOCIATE): - sleep study pending Fatigue 01/04/2023 Assessment & Plan (01/04/2023 2:28 PM BROKER ASSOCIATE): - Check TSH - pending sleep study [...] 07/29/2022 Assessment & Plan (01/04/2023 2:26 PM BROKER ASSOCIATE): - Due for TDap, Zoster, Covid outside [...] 07/29/2022 Assessment & Plan (01/04/2023 2:19 PM BROKER ASSOCIATE): - Will try to resend Eplerenone, previously [...] 01/05/2022 Assessment & Plan (01/04/2023 2:26 PM BROKER ASSOCIATE): - Likely sleep-related, obesity, SHAYNE - Cont. PPI Sleep choking syndrome 01/05/2022 PND (paroxysmal nocturnal dyspnea) 01/05/2022 Bipolar affective disorder 12/24/2021 Back pain 12/24/2021 Family history of other specified conditions Asthma-COPD overlap syndrome 11/11/2021 Assessment & Plan (01/04/2023 2:18 PM BROKER ASSOCIATE): - Tob cessation Chronic midline low back pain without sciatica 0 11/09/2021 Lumbosacral disc disease 11/09/2021 Foraminal stenosis of lumbar region 11/09/2021 Heart failure with reduced ejection fraction 09/2021 Assessment & Plan (05/30/2023 3:04 PM CDT): HF with EF recovered to normal. Continue current treatment. Assessment & Plan (01/04/2023 2:16 PM BROKER ASSOCIATE): - See HTN above - Pt not [...] 07/11/2019 Assessment & Plan (01/04/2023 2:15 PM BROKER ASSOCIATE): - Stable, despite holding spirono due to [...] 11/06/2017 Assessment & Plan (01/04/2023 2:13 PM BROKER ASSOCIATE): - Encouraged cessation, ready to quit - [...] 12/02/2024 Refill [facility] [place] [id number] Florence Ojeda, [employer] Refill Request from Last 3 Months Immunizations [...] 84 01/29/2024 12:43 PM CDT Temperature 36.7 C (98 F) 08/02/2023 9:38 AM CDT Respiratory Rate 18 [...] ENDOSCOPY, COLON, SCREENING Routine 12/07/2022 10:04 AM BROKER ASSOCIATE COMPREHENSIVE METABOLIC PANEL Routine 08/09/2022 1:47 PM CDT Weight loss HEPATITIS C AB W/RFLX TO HCV RNA QN PCR 09/19/2019 9:17 AM BROKER ASSOCIATE from Last 3 Months or Most Recently Relevant to Health Maintenance Results * ENDOSCOPY, COLON, SCREENING (12/07/2022 10:04 AM BROKER ASSOCIATE) Report Endoscopy POC Endoscopy Department Report _ Patient Name: Josafat Calvo Procedure Date: 12/07/2022 10:04 AM Date of : 1960 Classification: Outpatient Gender: Male Ethnicity: Not or Race: Black or _ Providers: Tal Mccormick Referring MD: Ian Pollock (Referring ) Procedure: Colonoscopy Indications: High risk colon cancer surveillance: Personal history of colonic polyps, Family history of colon cancer in a first-degree relative before age 60 years Medications: Monitored Anesthesia Care Description of Procedure: Pre-Anesthesia Assessment: - Prior to the procedure, a History and Physical was performed, and patient medications and allergies were reviewed. The patient's tolerance of previous anesthesia was also reviewed. The risks and benefits of the procedure and the sedation options and risks were discussed with the patient. All questions were answered, and informed consent was obtained. Prior Anticoagulants: The patient has taken no previous anticoagulant or antiplatelet agents. ASA Grade Assessment: II - A patient with mild systemic disease. After reviewing the risks and benefits, the patient was deemed in satisfactory condition to undergo the procedure. After I obtained informed consent, the scope was passed under direct vision. Throughout the procedure, the patient's blood pressure, pulse, and oxygen saturations were monitored continuously. The Colonoscope was introduced through the anus and advanced to the cecum, identified by appendiceal orifice and ileocecal valve. The colonoscopy was performed without difficulty. The patient tolerated the procedure well. The quality of the bowel preparation was adequate to identify polyps. The ileocecal valve, appendiceal orifice, and rectum were photographed. Findings: The perianal and digital rectal examinations were normal. Four sessile polyps were found in the ascending colon. The polyps were 4 to 6 mm in size. These polyps were removed with a cold snare. Resection and retrieval were complete. The retroflexed view of the distal rectum and anal verge was normal and showed no anal or rectal abnormalities. Estimated Blood Loss: Estimated blood loss was minimal. Complications: No immediate complications. Impression: - Four 4 to 6 mm polyps in the ascending colon, removed with a cold snare. Resected and retrieved. - The distal rectum and anal verge are normal on retroflexion view. Recommendation: - Patient has a contact number available for emergencies. The signs and symptoms of potential delayed complications were discussed with the patient. Return to normal activities tomorrow. Written discharge instructions were provided to the patient. - Resume previous diet. - Continue present medications. - Await pathology results. - Repeat colonoscopy in 3 - 5 years for surveillance based on pathology. - Return to primary care physician as previously scheduled. Attending Participation: I personally performed the entire procedure. Procedure Code(s): --- Professional --- 84194, Colonoscopy, flexible; with removal of tumor(s), polyp(s), or other lesion(s) by snare technique Diagnosis Code(s): --- Professional --- Z86.010, Personal history of colonic polyps K63.5, Polyp of colon Z80.0, Family history of malignant neoplasm of digestive organs CPT copyright 2019 [employer]. All rights reserved. The codes documented in this report are preliminary and upon precision thread grinder operator review may be revised to meet current compliance requirements. Tal Mccormick, 12/07/2022 10:49:20 AM Note Initiated On: 12/07/2022 10:04 AM Number of Addenda: [id number] [place] [address] PROVATION 12/07/2022 10:0 4 AM BROKER ASSOCIATE Rae Mccormick MD GI PRO CEDURE ORDERABLES [facility] PROVATION * (ABNORMAL) COMPREHENSIVE METABOLIC PANEL (08/09/2022 1:47 PM CDT) Glucose 112(H) 65 - 99 mg/dL [facility] Comment: Fasting reference interval For someone without known diabetes, a glucose value between 100 and 125 mg/dL is consistent with prediabetes and should be confirmed with a follow-up test. BUN 8 7 - 25 mg/dL [facility] Creatinine 0.78 0.70 - 1.35 mg/dL [facility] eGFR by Cystatin C 102 > OR = 60 mL/min/1. 73m2 [facility] Comment: The eGFR is based on the CKD-EPI 202 equation. To calculate the new eGFR from [...] 46 U/L [facility] Comment: Test Performed at: [facility] [address] [facility] [id number] PRUDENCIO ALDANA DO,MPH Blood BLOOD SPECIMEN / Unknown 08/09/2022 1:47 PM CDT 08/09/2022 1:50 PM CDT Ian Pollock MD LAB - CHEMISTRY JANAE ELIAS Performing Organization Address [facility] de Phone Number [email or web address] [phone] [place] [address] * HEPATITIS C AB W/RFLX TO HCV RNA QN PCR (09/19/2019 9:17 AM BROKER ASSOCIATE) Hepatitis C Antibody NON-REACTI VE NON-REACT FELY [facility] Signal to Cut-Off 0.03 <1.00 [facility] Comment: HCV antibody was non-reactive. There is no laboratory evidence of HCV infection. In most cases, no further action is required. However, if recent HCV exposure is suspected, a test for HCV RNA (test code 90875) is suggested. For additional information please refer to http://education.[employer]/faq/PZM06b4 (This link is being provided for informational/ educational purposes only.) Test Performed at: [facility] [address] [id number] PRUDENCIO ALDANA DO,MPH 09/19/2019 9:17 AM BROKER ASSOCIATE 09/19/2019 9:21 AM BROKER ASSOCIATE Monica Tellez [employer] LAB - CHEMI STRY ORDERABLES Performing Organization Address [facility] de Phone Number [email or web address] [phone] [place] [address] from Last 3 Months or Most Recently Relevant to Health Maintenance Advance Directives Documents on File Type Date Recorded Patient Electronic Systems Technician Expl anation Adv Directive/Living Will/POA 11/05/2015 12:22 PM * Full Code (Latest Code Status on File) Date Activated Date Inactivated Comments 11/01/2015 9:11 PM 11/05/2015 6:02 AM Care Teams Pressure Tester Relationship Specialty Start Date End Date Natalie Baum [address] [place] [address] PCP - General 05/06/24 Katina Casiano DO [address] DIV OF [facility] [place], [place] Hospitalist 06/05/23 Tracey Ang PA [address] [place] [address] Physician Olericulture Professor 08/15/23
--- OUTSIDE RECORDS SUMMARY | 2024-12-12 20:04 | XMS_ITS | Clinical Summary ---
Author Organization [facility] Address [address] [place] [address] Phone Care Team Providers Care Chief Technology Officer Name Role Phone SADIE JACK MD Unavailable [...] On 0 10:36AM By PAUL DAVIS-ANAYA ; [facility] Gabapentin 600 MG Oral Tablet 05/26/2020 Provider: PAUL MAJANO Diagnosis: Radiculopathy, l umbar region TAKE 1 TABLET BY MOUTH THREE TIMES DAILY. Last Documented On 0 2:54PM By PAUL NUNEZ ; [facility] Triamcinolone Acetonide 0.1% External Cream 10/07/2019 Provider: Diagnosis: Last Documented On 9 11:28AM By Faye MEJÍA ; [facility] Spironolactone 50 MG Oral Tablet 10/07/2019 Provider : Diagnosis: Last Documented On 9 11:27AM By Faye MEJÍA ; [facility] Omeprazole 40 MG Oral Capsule Delayed Release 10/07/20 Provider: Diagnosis: Last Documented On 9 11:27AM By Faye MEJÍA ; [facility] Ibuprofen 600 MG Oral Tablet 10/07/2019 Provider: Diagnosis: Last Documented On 9 11:27AM By Faye MEJÍA ; [facility] hydrOXYzine Pamoate 50 MG Oral Capsule 10/07/2019 Pr ovider: Diagnosis: Last Documented On 9 11:26AM By Faye MEJÍA ; [facility] Carvedilol 25 MG Oral Tablet 10/07/2019 Provider: Diagnosis: Last Documented On 9 11:26AM By Faye MEJÍA ; [facility] Medications Administered Includes: Administered Medications from [...] Active Last Documented On 0 8:29AM ; [facility] Lisinopril Allergy 10/07/2019 Active Last Documented On 0 8:29AM ; [facility] Insurance Includes: Active Insurance Policies Plan Name Member ID Group # Subscriber Relationship Effect jeannine Dates - [facility] [id number] RYLEE GRAY Self Clinical Notes Includes: Clinical Notes from this encounter No Clinical Notes Recorded
--- OUTSIDE RECORDS SUMMARY | 2024-12-12 20:04 | XMS_ITS ---
Author Organization [facility] Address [address] [place] [address] Care Team Providers Care Certified Alcohol Drug Counselor Name Role Phone Radha Joseph Primary Care Provider REASON FOR VISIT PRAPARE Assessment Social History Tobacco Use: Social History Observation Description Date Details (start date - stop date) Never Smoker NA - NA Sex Assigned At : Social History Observation Description Sex Assigned At Male PRAPARE Question Answer Notes Date Completed/Updated: 12/10/2024 What is your current housing situation? I have h ousing Are you worried about losing your housing? No What is the highest level of school that you have finished? High school diploma or GED What is your current work situation? Oth erwise unemployed but not seeking work (ex. 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 Check all that apply I do not have problems meeting my needs Has lack of transportation k ept you from medical appointments, meetings, work or from getting things needed for daily living? No How often do you see or talk to people that you care about and feel close to? (For example: talking to friends on the phone, visiting friends or family, going to congregational or club meetings) More than 5 times a week How stressed are you? Stress is when someone feels tense, nervous, anxious, or can\t sleep at night because their mind is troubled Not at all In the past year have you sp ent more than 2 nights in a row in a snf, care home, prison center, or juvenile correctional facility? No Are you a refugee? No What country are you from? [place] Do you feel physically and e motionally safe where you currently live? Yes In the past year, have you b een afraid of your partner or ex-partner? No PRAPARE Score: 5 Tobacco Control (Standard) Question Answer Notes Tobacco use: Nonsmoker Encounters Encounter Location Date Provider Diagnosis [address] [place] [address] 12/11/2024 Radha Joseph Plan Of Treatment No Information Progress Notes * Josafat CALVO FDOB: 1 (64 yo M)Acc No.[id number]:12/11/2024 Patient: Josafat GARCIA :1960 A ge:64 Y S ex:Male Address:[address] [place] [address], [address] Subjective: * Chief Complaints: * P EV Assessment * Medical History: * Surgical History: * Hospitalization/Major Diagno stic Procedure: * Social History: S ocial Determinants: Lee CARRENO D ate Completed/Updated: 0 12/10/2024, W hat is your current housing situation? I have housing, A re you worried about losing your housing? N o, W hat is the highest level of school that you have finished? H igh school diploma or GED, W hat is your current work situation? O therwise unemployed but not seeking work (ex. 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 Check all that apply I do not have problems meeting my needs, H as lack of transportation kept you from medical appointments, meetings, work or from getting things needed for daily living? N o, H ow often do you see or talk to people that you care about and feel close to? (For example: talking to friends on the phone, visiting friends or family, going to congregational or club meetings) M ore than 5 times a week, How stressed are you? Stress is when someone feels tense, nervous, anxious, or can\t sleep at night because their mind is troubled N ot at all, I n the past year have you spent more than 2 nights in a row in a snf, care home, prison center, or juvenile correctional facility? N o, A re you a refugee? N o, W hat country are you from? [place], D o you feel physically and emotionally safe where you currently live? Y es, I n the past year, have you been afraid of your partner or ex-partner? N o, P RAPARE Score: 5 . T obacco Use: T obacco Control (Standard) T obacco use: N onsmoker. * Medications: Objective: * Vitals: * Physical Examination: Assessment: Plan: * Treatment: * Procedure Codes: * true * Date: Generated for Liudmila gray/Katey/Rositaitting on: 0 12/12/2024 06:32 AM BLOW PIT HELPER
--- OUTSIDE RECORDS SUMMARY | 2024-12-12 20:04 | XMS_ITS ---
Care Plan - [facility] Created on: December 12, 2024 RYLEE GRAY : 1960 Sex: Male Author Organization [facility] Address [address] [place] [address] Phone Care Team Providers Care Event Marketing Intern Name Role Phone MARCIE WALTERS, SADIE Giraldo Unavailable
--- OUTSIDE RECORDS SUMMARY | 2024-12-12 20:04 | XMS_ITS | Encounter Summary ---
Author Organization [facility] Address Formerly [facility], [facility] [place] [address] Care Team Providers Care Pony Cylinder Press Operator Name Role Phone Amilcar Osorio MD Primary Care Provider [phone] Monica Tellez NP Primary Care Provider [phone] Encounter Details Date Type Department Care Team (Late st Contact Info) Description 04/09/2018 Hosp Visit [facility] Outpatient Therapy [address] [place], [place] [address] Grecia Hess, [place] [address] Social History Tobacco Use Types Packs/Day Years [...] on filedocumented in this encounter Care Teams Pony Cylinder Press Operator Relationship Specialty Start Date End Date Amilcar Osorio MD [address] [facility] [address] [place] [address] PCP - General 05/01/17 09/04/19 Monica Tellez NP [address] [place] [address] PCP - General NURSE PRACTITIONER 09/05/19 documented as of this encounter
--- OUTSIDE RECORDS SUMMARY | 2024-12-12 20:04 | XMS_ITS | Encounter Summary ---
Author Organization [facility] Address [facility] [place] [address] Care Team Providers Care Physiotherapist'S Assistant Name Role Phone Amilcar Osorio MD Primary Care Provider [phone] Monica Tellez NP Primary Care Provider [phone] Encounter Details Date Type Department Care Team (Late st Contact Info) Description 04/16/2018 Hosp Visit [facility] Outpatient Therapy [address] [place], [place] [address] [place], [place] [address] Social History Tobacco Use Types Packs/Day Years [...] on filedocumented in this encounter Care Teams Physiotherapist'S Assistant Relationship Specialty Start Date End Date Amilcar Osorio MD [address] [facility] [address] [place] [address] PCP - General 05/01/17 09/04/19 Monica Tellez NP [address] [place] [address] PCP - General NURSE PRACTITIONER 09/05/19 documented as of this encounter
--- OUTSIDE RECORDS SUMMARY | 2024-12-12 20:04 | XMS_ITS | Clinical Summary ---
Author Organization [facility] Address [address] [place] [address] Phone Care Team Providers Care Network And Threat Support Specialist Name Role Phone SADIE JACK MD Unavailable [...] On 0 10:36AM By PAUL NUNEZ ; [facility] Gabapentin 600 MG Oral Tablet 05/26/2020 Provider: PAUL MAJANO Diagnosis: Radiculopathy, l umbar region TAKE 1 TABLET BY MOUTH THREE TIMES DAILY. Last Documented On 0 2:54PM By PAUL NUNEZ ; [facility] Triamcinolone Acetonide 0.1% External Cream 10/07/2019 Provider: Diagnosis: Last Documented On 9 11:28AM By Faye MEJÍA ; [facility] Spironolactone 50 MG Oral Tablet 10/07/2019 Provider : Diagnosis: Last Documented On 9 11:27AM By Faye MEJÍA ; [facility] Omeprazole 40 MG Oral Capsule Delayed Release 10/07/20 19 Provider: Diagnosis: Last Documented On 9 11:27AM By Faye MEJÍA ; [facility] Ibuprofen 600 MG Oral Tablet 10/07/2019 Provider: Diagnosis: Last Documented On 9 11:27AM By Faye MEJÍA ; [facility] hydrOXYzine Pamoate 50 MG Oral Capsule 10/07/2019 Pr ovider: Diagnosis: Last Documented On 9 11:26AM By Faye MEJÍA ; [facility] Carvedilol 25 MG Oral Tablet 10/07/2019 Provider: Diagnosis: Last Documented On 9 11:26AM By Faye MEJÍA ; [facility] Medications Administered Includes: Administered Medications from [...] Active Last Documented On 0 8:29AM ; [facility] Lisinopril Allergy 10/07/2019 Active Last Documented On 0 8:29AM ; [facility] Encounters Encounter Provider Location Date Check-In Time Check-Out Time Diagnosis NO SHOW PAUL DAVIS- 06/30/2020 8:28AM 11:59PM Insurance Includes: Active Insurance Policies Plan Name Member ID Group # Subscriber Relationship Effect jeannine Dates 1 - [facility] [id number] RYLEE GRAY Self Clinical Notes Includes: Clinical Notes from this encounter No Clinical Notes Recorded
--- OUTSIDE RECORDS SUMMARY | 2024-12-12 20:04 | XMS_ITS | Encounter Summary ---
Author Organization [facility] Address [facility] [place] [address] Care Team Providers Care Therapist Phys Name Role Phone Amilcar Osorio MD Primary Care Provider [phone] Monica Tellez PAYROLL REPRESENTATIVE Primary Care Provider [phone] Encounter Details Date Type Department Care Team (Late st Contact Info) Description 07/03/2018 Abstract [facility] Group Multispecialty Care - [facility] [address] [facility] [place] [address] Gina Fleming APNP [address] [facility] [address] [facility] [address] [place] [address] Social History Tobacco Use Types Packs/Day Years [...] on filedocumented in this encounter Care Teams Therapist Phys Relationship Specialty Start Date End Date Amilcar Osorio MD [address] [facility], [facility] [address] [place] [address] PCP - General 05/01/17 09/04/19 Monica Tellez NP [address] [place] [address] PCP - General NURSE PRACTITIONER 09/05/19 documented as of this encounter
--- OUTSIDE RECORDS SUMMARY | 2024-12-12 20:04 | XMS_ITS ---
Author Organization [facility] Address [address] [place] [address] Care Team Providers Care Print Designer Name Role Phone Radha Joseph Primary Care Provider Social History Sex Assigned At : Social History Observation Description Sex Assigned At Male Encounters Encounter Location Date Provider Diagnosis [facility] [address] [place] [address] 12/10/2024 Radha Joseph Plan Of Treatment No Information Progress Notes * Josafat CALVO FDOB: 1 (64 yo M)Acc No.[id number]:12/10/2024 Patient: Josafat GARCIA :1960 A ge:64 Y S ex:Male Address:[address] [facility], [place], [address] * true * Date: Generated for Printi ng/Faxing/eTransmitting on: 0 12/12/2024 08:04 PM LOAN TELLER
--- OUTSIDE RECORDS SUMMARY | 2024-12-12 20:04 | XMS_ITS | Clinical Summary ---
Author Organization [facility] Address [facility] [place] [address] Care Team Providers Care Arts Education Teacher Name Role Phone Monica Tellez Gavin CUSTOM FEED CORN OPERATOR Primary Care Provider [phone] Allergies Active Allergy Reactions Criticality Noted Date [...] guaiFENesin (MUCINEX D OR) Activ e Umeclidinium [place] (INCRUSE ELLIPTA IN) Active hydrOXYzine 50 MG [...] Comments Blood Pressure 142/92 09/05/2019 11:03 AM HEEL EDGE INKER MACHINE Pulse 60 09/05/2019 11:03 AM HEEL EDGE INKER MACHINE Temperature 36.5 C (97.7 F) 09/05/2019 11:03 AM HEEL EDGE INKER MACHINE Respiratory Rate - - Oxygen Saturation 97% 09/05/2019 11:03 AM HEEL EDGE INKER MACHINE Inhaled Oxygen Concentration - - Weight 108 kg (238 lb) 09/05/2019 11:03 AM HEEL EDGE INKER MACHINE Height 175.3 cm (5' 9 ) 09/05/2019 11:03 AM HEEL EDGE INKER MACHINE Body Mass Index 35.15 09/05/2019 11:03 AM HEEL EDGE INKER MACHINE Plan of Treatment Health Maintenance Due Date Last Done Comments Colorectal Cancer Screening Colonoscopy (10 Years) 1960 Annual Physical 1963 Hepatitis C 1979 Zoster Vaccines (1 of 2) 2011 COVID-19 Vaccine ( season) 2024 Influenza Adult (#1) 2024 07/11/2019, [...] patient's age to complete this topic Insurance [place] Care Teams Arts Education Teacher Relationship Specialty Start Date End Date Monica Tellez NP PCP - General NURSE PRACTITIONER 09/05/19
--- OUTSIDE RECORDS SUMMARY | 2024-12-12 20:04 | XMS_ITS | Clinical Summary ---
Author Organization [facility] Address [address] [place] [address] Phone Care Team Providers Care Cost Accountant Name Role Phone SADIE JACK MD Unavailable [...] On 0 10:36AM By PAUL DAVIS-ANAYA ; [facility] Gabapentin 600 MG Oral Tablet 05/26/2020 Provider: PAUL MAJANO Diagnosis: Radiculopathy, l umbar region TAKE 1 TABLET BY MOUTH THREE TIMES DAILY. Last Documented On 0 2:54PM By PAUL NUNEZ ; [facility] Triamcinolone Acetonide 0.1% External Cream 10/07/2019 Provider: Diagnosis: Last Documented On 9 11:28AM By Faye MEJÍA ; [facility] Spironolactone 50 MG Oral Tablet 10/07/2019 Provider : Diagnosis: Last Documented On 9 11:27AM By Faye MEJÍA ; [facility] Omeprazole 40 MG Oral Capsule Delayed Release 10/07/20 Provider: Diagnosis: Last Documented On 9 11:27AM By Faye MEJÍA ; [facility] Ibuprofen 600 MG Oral Tablet 10/07/2019 Provider: Diagnosis: Last Documented On 9 11:27AM By Faye MEJÍA ; [facility] hydrOXYzine Pamoate 50 MG Oral Capsule 10/07/2019 Pr ovider: Diagnosis: Last Documented On 9 11:26AM By Faye MEJÍA ; [facility] Carvedilol 25 MG Oral Tablet 10/07/2019 Provider: Diagnosis: Last Documented On 9 11:26AM By Faye MEJÍA ; [facility] Medications Administered Includes: Administered Medications from this encounter No Administered Medications Recorded Results Includes: Results discussed during this encounter No Results Recorded For Specified Dates History of Present Illness Includes: History of Present Illness from this encounter No History of Present Illness Recorded Social History Description Last Updated Smoker 04/29/2020 Last Documented On 0 3:51PM ; [facility] Smoking status : Current everyday smoker 10/07/2019 Last Documented On 0 3:51PM ; [facility] Medical History Includes: Medical History addressed during [...] Active Last Documented On 0 8:29AM ; [facility] Lisinopril Allergy 10/07/2019 Active Last Documented On 0 8:29AM ; [facility] Encounters Encounter Provider Location Date Check-In Time Check-Out Time Diagnosis RX ISSUE/REFILL PAUL DAVIS-ANAYA 06/23/2020 3:51PM 11:59PM Insurance Includes: Active Insurance Policies Plan Name Member ID Group # Subscriber Relationship Effect jeannine Dates 1 - [facility] [id number] RYLEE GRAY Self Clinical Notes Includes: Clinical Notes from this encounter No Clinical Notes Recorded
--- OUTSIDE RECORDS SUMMARY | 2024-12-12 20:04 | XMS_ITS | Encounter Summary ---
Author Organization [facility] Address [facility] [place] [address] Care Team Providers Care Mold Shop Supervisor Name Role Phone Amilcar Osorio MD Primary Care Provider [phone] Monica Tellez MANAGER E LEARNING Primary Care Provider [phone] Encounter Details Date Type Department Care Team (Late st Contact Info) Description 04/02/2018 Hosp Visit [facility] Outpatient Therapy [address] [place], [place] [address] Grecia Hess, [place] [address] Social History Tobacco Use Types Packs/Day Years [...] on filedocumented in this encounter Care Teams Mold Shop Supervisor Relationship Specialty Start Date End Date Amilcar Osorio MD [address] [facility] [address] [place] [address] PCP - General 05/01/17 09/04/19 Monica Tellez NP [address] [place] [address] PCP - General NURSE PRACTITIONER 09/05/19 documented as of this encounter
--- OUTSIDE RECORDS SUMMARY | 2024-12-12 20:04 | XMS_ITS | Referral Summary ---
Author Organization [facility] Address [address] [place] [address] Care Team Providers Care Black Powder Glazing Operator Name Role Phone Katina Casiano DO Unavailable [phone] Tracey Ang PA Unavailable [phone] Natalie Baum Primary Care Provider [phone] Source Comments [facility],non-owned Affiliates and Associated Physician Practices is amultiple site organization consisting of ambulatory clinics and hospital sitesin [place], [place], [place] and [place]. This disclosure is being madepursuant to the Care Everywhere program and may not contain all information available regarding this patient. Last updated 18.[facility] Encounters Date Type Department Care Team Description 12/02/2024 Refill [facility] - Urology [address] [place] [address], [place] [address] Florence Ojeda, GROCERY CLERK SELLING-MEDICAL DOSIMETRIST Refill Request from Last 3 Months Allergies [...] MG/3ML) 0.083% nebulizer solutionIndicati ons:Centrilobula r emphysema (HCC),Asthma-JUVENILE JUSTICE SPECIALIST D overlap syndrome (HCC) Inhale 2.5 (two [...] Active Symbicort 160-4.5 MCG/ACT inhalerIndicatio ns:Centrilobular emphysema (HCC),Asthma-JUVENILE JUSTICE SPECIALIST D overlap syndrome (HCC) Inhale 2 (two) puffs by mouth once daily 10.2 g 3 08/29/2023 Active albuterol HFA (Proventil; Ventolin; Proair) 108 (90 Base) MCG/ACT inhalerIndicatio ns:Centrilobular emphysema (HCC),Asthma-JUVENILE JUSTICE SPECIALIST D overlap syndrome (HCC) Inhale 2 (two) [...] 01/04/2023 Assessment & Plan (01/04/2023 2:27 PM HOT BILLET SHEAR OPERATOR): - sleep study pending Fatigue 01/04/2023 Assessment & Plan (01/04/2023 2:28 PM HOT BILLET SHEAR OPERATOR): - Check TSH - pending sleep study [...] 07/29/2022 Assessment & Plan (01/04/2023 2:26 PM HOT BILLET SHEAR OPERATOR): - Due for TDap, Zoster, Covid outside [...] 07/29/2022 Assessment & Plan (01/04/2023 2:19 PM HOT BILLET SHEAR OPERATOR): - Will try to resend Eplerenone, previously [...] 01/05/2022 Assessment & Plan (01/04/2023 2:26 PM HOT BILLET SHEAR OPERATOR): - Likely sleep-related, obesity, SHAYNE - Cont. PPI Sleep choking syndrome 01/05/2022 PND (paroxysmal nocturnal dyspnea) 01/05/2022 Bipolar affective disorder 12/24/2021 Back pain 12/24/2021 Family history of other specified conditions Asthma-COPD overlap syndrome 11/11/2021 Assessment & Plan (01/04/2023 2:18 PM HOT BILLET SHEAR OPERATOR): - Tob cessation Chronic midline low back pain without sciatica 0 11/09/2021 Lumbosacral disc disease 11/09/2021 Foraminal stenosis of lumbar region 11/09/2021 Heart failure with reduced ejection fraction 09/2021 Assessment & Plan (05/30/2023 3:04 PM CDT): HF with EF recovered to normal. Continue current treatment. Assessment & Plan (01/04/2023 2:16 PM HOT BILLET SHEAR OPERATOR): - See HTN above - Pt not [...] 07/11/2019 Assessment & Plan (01/04/2023 2:15 PM HOT BILLET SHEAR OPERATOR): - Stable, despite holding spirono due to [...] 11/06/2017 Assessment & Plan (01/04/2023 2:13 PM HOT BILLET SHEAR OPERATOR): - Encouraged cessation, ready to quit - [...] ENDOSCOPY, COLON, SCREENING Routine 12/07/2022 10:04 AM HOT BILLET SHEAR OPERATOR COMPREHENSIVE METABOLIC PANEL Routine 08/09/2022 1:47 PM CDT Weight loss HEPATITIS C AB W/RFLX TO HCV RNA QN PCR 09/19/2019 9:17 AM HOT BILLET SHEAR OPERATOR from Last 3 Months or Most Recently Relevant to Health Maintenance Results * ENDOSCOPY, COLON, SCREENING (12/07/2022 10:04 AM HOT BILLET SHEAR OPERATOR) Report Endoscopy POC Endoscopy Department Report _ Patient Name: Josafat Calvo Procedure Date: 12/07/2022 10:04 AM Date of : 1960 Classification: Outpatient Gender: Male Ethnicity: Not or Race: Black or _ Providers: Tal Mccormick Referring MD: Ian Pollock (Referring MD) Procedure: Colonoscopy Indications: High risk colon cancer [...] entire procedure. Procedure Code(s): --- Professional --- 59474, Colonoscopy, flexible; with removal of tumor(s), polyp(s), or other lesion(s) by snare technique Diagnosis Code(s): --- Professional --- Z86.010, Personal history of colonic polyps K63.5, Polyp of colon Z80.0, Family history of malignant neoplasm of digestive organs CPT copyright 2019 [employer]. All rights reserved. The codes documented in this report are preliminary and upon wash driller review may be revised to meet current compliance requirements. Tal Mccormick, 12/07/2022 10:49:20 AM Note Initiated On: 12/07/2022 10:04 AM Number of Addenda: [id number] [place] [address] [facility] 12/07/2022 10:0 4 AM HOT BILLET SHEAR OPERATOR Rae Mccormick MD GI PRO CEDURE ORDERABLES [facility] * (ABNORMAL) COMPREHENSIVE METABOLIC PANEL (08/09/2022 1:47 [...] 46 U/L [facility] Comment: Test Performed at: [place] [address] PRUDENCIO ALDANA DO,MPH Blood BLOOD SPECIMEN / Unknown 08/09/2022 1:47 PM CDT 08/09/2022 1:50 PM CDT Ian Pollock MD LAB - CHEMISTRY [facility] Organization Address City/State/ZIP Co de Phone Number [facility] [address] [place] [address] * HEPATITIS C AB W/RFLX TO HCV RNA QN PCR (09/19/2019 9:17 AM HOT BILLET SHEAR OPERATOR) Hepatitis C Antibody NON-REACTI VE NON-REACT FELY [facility] Signal to Cut-Off 0.03 <1.00 [facility] Comment: HCV antibody was non-reactive. There is no laboratory evidence of HCV infection. In most cases, no further action is required. However, if recent HCV exposure is suspected, a test for HCV RNA (test code 50961) is suggested. For additional information please refer to http://education.Strevus/faq/ISJ29i9 (This link is being provided for informational/ educational purposes only.) Test Performed at: [facility] [address] [place] [address] PRUDENCIO ALDANA DO,MPH 09/19/2019 9:17 AM HOT BILLET SHEAR OPERATOR 09/19/2019 9:21 AM HOT BILLET SHEAR OPERATOR Monica Tellez GROCERY CLERK SELLING-MEDICAL DOSIMETRIST LAB - CHEMI STRY ORDERABLES [facility] [address] [place] [address] from Last 3 Months or Most Recently Relevant to Health Maintenance Advance Directives Documents on File Type Date Recorded Patient Document Preparation Specialist Expl anation Adv Directive/Living Will/POA 11/05/2015 12:22 PM * Full Code (Latest Code Status on File) Date Activated Date Inactivated Comments 11/01/2015 9:11 PM 11/05/2015 6:02 AM Care Teams Black Powder Glazing Operator Relationship Specialty Start Date End Date Natalie Baum [address] [place] [address] PCP - General 05/06/24 Katina Casiano DO [address] [facility] [address] [facility] OF [facility] [place], [place] Hospitalist 06/05/23 Tracey Ang PA [address] [facility] [address] [place] [address] Physician Executive Staff Assistant 08/15/23
--- OUTSIDE RECORDS SUMMARY | 2024-12-12 20:04 | XMS_ITS | Patient Health Summary ---
Author Organization [facility] Address [address] [place] [address] Care Team Providers Care Solar System Designer Name Role Phone Katina Casiano DO Unavailable [phone] Tracey Ang PA Unavailable [phone] Natalie Baum Primary Care Provider [phone] Note from [facility],non-owned Affiliates and Associated Physician Practices is amultiple site organization consisting of ambulatory clinics and hospital sitesin [place], [place], [place] and [place]. This disclosure is being madepursuant to the Care Everywhere program and may not contain all information available regarding this patient. Last updated 18.[facility] Allergies * Lisinopril(Anaphylaxis,Unknown) -High Criticality * Penicillins(Anaphylaxis) [...] for Lower urinary tract symptoms (LUTS) * KS MSR PVR U&/BLADD CAPCTY US NON(Performed 11/18/2022) [...] REHAB(Performed 05/03/2022) * CARDIAC REHAB(Performed 03/23/2022) * KS DRAIN/INJECT LARGE JOINT/BURSA(Performed 03/18/2022) Performed for Greater [...] resultswithin the time period is included. BSA 2.5337970 m2 [facility] CV FUJ I PACS LV [...] PACS MV DT 283 ms [facility] CV [facility] I PACS MV E' septal dane 4.572 cm/s [facility] CV FUJI PACS MV E/e' septal 11.8 [facility] C V FUJI PACS MV E/e' lateral 5.552 [facility] CV FUJI PACS LA vol BP 49.935 mL [facility] CV [facility] I PACS LVOT pk dane 0.97 m/s [...] FUJI PACS RVIDd 2.8 cm [facility] CV [facility] I PACS RVOT VTI 11.222 cm [facility] CV [facility] I PACS TV S' dane 12.426 cm/s [facility] CV [facility] I PACS TAPSE 1.978 1.7 cm [facility] CV [facility] I PACS RVOT pk dane 0.57 m/s [...] Index 26 ml/m2 [facility] CV FUJI PACS [id number] 7.143 cm [facility] CV FUJ I PACS [id number] 7.525 cm [facility] CV FUJ I PACS Prox Asc Ao Diameter Index 1.443 cm SSM CV FUJI PACS LVIDs index 1.78 1.3 - 2.1 cm/m2 [facility] CV FUJI PACS LV LVIDd index 2.34 2.2 - 3.0 cm/m2 SSM CV FUJI PACS Anatomical Region Laterality Modality Ultrasound Narrative 01/29/2024 2:20 PM CDT Left Ventricle: Left ventricle size is normal. Normal wall thickness. Ventricular mass is normal. Normal systolic function. EF by 2D Malone biplane is 56%. Normal wall motion. Normal diastolic function. Tricuspid Valve: Trace regurgitation. Unable to estimate the pulmonary artery systolic pressure due to lack of tricuspid regurgitation. Mitral Valve: Mild to moderate regurgitation. Left Ventricle Left [...] Procedure Note Jayleen Lamas MD - 01/29/2024 Left Ventricle: Left ventricle size is normal. Normal wall thickness.Ventricular mass is normal. Normal systolic function. EF by 2D Simpsonbiplane is 56%. Normal wall motion. Normal diastolic function. Tricuspid Valve: Trace regurgitation. Unable to estimate the pulmonaryartery systolic pressure due to lack of tricuspid regurgitation. Mitral Valve: Mild to moderate regurgitation. Tracey CARNES ECHO [...] ORDERA BLES * Complete PFT w/wo Bronchodilator [facility] PFT Lab (03/14/2023 2:36 PM CDT) Impressions Ang Christie MD - 03/14/2023 2:36 PM CDT [facility] DEPARTMENT OF PULMONARY, CRITICAL CARE, AND SLEEP MEDICINE PULMONARY FUNCTION TEST Please see technologist's comments mentioned in the report. INTERPRETATION: SPIROMETRY: FVC: normal FEV1: normal FEV1/FVC ratio is normal. BRONCHODILATOR RESPONSE: There is [...] D.O. Pulmonary Disease & Critical Care Fellow [facility] Pager: [phone] I have reviewed the test data and agree with Dr. Butler's interpretations. Ang Christie MD 04/26/2023 Narrative Ang Christie MD - 03/14/2023 2:36 PM CDT Song Butler, 03/14/2023 2:42 PM Procedure Note Song Butler, - 03/14/2023 2:36 PM CDT Images from the original note were not included. Rhianna Moctezuma MD [facility] * CT CHEST WO CONTRAST (01/31/2023 [...] Bernard MD. > Dictated by David Bernard (Supervisor Molding) 01/31/2023 11:34 AM IBimal MD have personally reviewed and interpreted this examination/study. > Interpreting Provider: Bimal Lozano MD on 01/31/2023 11:37 AM Narrative 01/31/2023 11:37 AM CDT PROCEDURE: CT CHEST WO CONTRAST, DATE/TIME OF EXAM: 01/31/2023 7:47 AM, LOCATION [facility] INDICATION: R91.1: Pulmonary nodule ADDITIONAL CLINICAL [...] DATE/TIME OF EXAM: 01/31/2023 7:47 AM, LOCATION [facility] INDICATION: R91.1: Pulmonary nodule ADDITIONAL CLINICAL [...] Bernard MD. > Dictated by David Bernard (Supervisor Molding) 01/31/2023 11:34 AM IBimal MD have personally reviewed and interpreted this examination/study. > Interpreting Provider: Bimal Lozano MD on 01/31/2023 11:37 AM Jeffrey Oliveira MD CT ORDERABLES * PATHOLOGY TISSUE (12/07/2022 10:29 AM CASING TIER) Case Report Surgical Pathology Report Case: [id number] Authorizing Provider: Gavin Mccormick, Collected: 12/07/2022 10:29 AM Ordering Location: [facility] ENDOSCOPY Received: 12/07/2022 12:46 PM Pathologist: Coral Epps MD Specimen: Polyp Ascending, ascending colon polyps 12/08/2022 1:54 PM [facility] Final Diagnosis Large intestine, ascending colon polyps, biopsy (A): - Tubular adenoma(s), fragmented 12/08/2022 1:54 PM [facility] Microscopic Description and Comment Microscopic examination substantiates the final diagnosis. 12/08/2022 1:54 PM [facility] Clinical History The patient is a 62-year-old man who presents for high risk colon cancer surveillance (personal history of colonic polyps and family history of colon cancer in first-degree relative age <60 years). Operative procedure/findings: Colonoscopy - four 4-6 mm ascending colon polyps, resected and retrieved. 12/08/2022 1:54 PM [facility] Gross Description The requisition and specimen(s) are identified with the patient's name Josafat Calvo. Received in formalin, specimen A , are multiple pink-nolasco tissues, 0.2-0.8 cm in greatest dimension and 2.0 x 0.5 x 0.2 cm in aggregate, submitted in toto in cassette A1. DF 12/08/2022 1:54 PM [facility] Disclaimer The performance characteristics of all immunohistochemical and indirect immunofluorescence stains (if any) cited in this report were determined by the Histopathology Laboratory of [facility]. Some of these tests were developed by [...] the attending (teaching) pathologist. 12/08/2022 1:54 PM [facility] Embedded Images 12/08/2022 1:54 PM [facility] Biopsy, NOS POLYP / Unknown 12/07/2022 1 0:29 AM CASING TIER 12/07/2022 12:46 PM CASING TIER Comment:Pre-op diagnosis: Dark stools [R19.5] Colon cancer screening [Z12.11] Rae Mccormick MD LAB - PATHOLOGY/CYTOLOGY ORDERABLES [facility] [address] [phone] * ENDOSCOPY, COLON, SCREENING (12/07/2022 10:04 AM CASING TIER) Report Endoscopy POC Endoscopy Department Report _ [...] entire procedure. Procedure Code(s): --- Professional --- 30009, Colonoscopy, flexible; with removal of tumor(s), polyp(s), or other lesion(s) by snare technique Diagnosis Code(s): --- Professional --- Z86.010, Personal history of colonic polyps K63.5, Polyp of colon Z80.0, Family history of malignant neoplasm of digestive organs CPT copyright 2019 [employer]. All rights reserved. The codes documented in this report are preliminary and upon car sales representative review may be revised to meet current compliance requirements. Tal Mccormick, 12/07/2022 10:49:20 AM Note Initiated On: 12/07/2022 10:04 AM Number of Addenda: [phone] [place] [address] PROVATION 12/07/2022 10:0 4 AM CASING TIER Rae Mccormick MD GI PRO CEDURE ORDERABLES [facility] PROVATION * URINALYSIS AUTO - POINT OF CARE (AMB) [facility] (11/18/2022 9:37 AM CASING TIER) Only the most recent of3 resultswithin the time period is included. Glucose UA neg Bilirubin UA POCT neg Ketones UA POCT neg Specific Mobile UA 1.015 Blood Urine POCT neg pH UA 6.0 Protein UA neg Urobilinogen UA 0.2 mg/dl Nitrite UA neg WBC UA neg Urine URINE / Unknown 11/18/2022 9 :37 AM CASING TIER Florence Ojeda MEDICAID ELIGIBILITY SPECIALIST-MAJOR APPLIANCE ASSEMBLY SUPERVISOR LAB - POINT O F CARE ORDERABLES * KS MSR PVR U&/BLADD CAPCTY US NON (11/18/2022 9:32 AM CASING TIER) Narrative Franklin Montez CNA - 11/18/2022 9:32 AM CASING TIER Franklin Montez CNA 11/22/2022 11:12 AM Bladder Scan 103 ml Florence Alonso Rusty MEDICAID ELIGIBILITY SPECIALIST-MAJOR APPLIANCE ASSEMBLY SUPERVISOR PROCEDURE/MIN OR SURGICAL ORDERABLES * (ABNORMAL) URINALYSIS W/MICROSCOPIC NO CULTURE (08/09/2022 1:47 PM CDT) Color UA YELLOW YELLOW [facility] Appearance CLOUDY(A) CLEAR [facility] Specific Mobile UA 1.006 1.001 - 1.035 [facility] pH [...] SEEN /LPF [facility] Comment: Test Performed at: [facility] [place]. [address] PRUDENCIO ALDANA DO,MPH Urine URINE SPECIMEN OBTAINED BY CLEAN CATCH PROCEDURE / Unknown 08/09/2022 1:47 PM CDT 08/09/2022 1:50 PM CDT Ian Pollock MD LAB - URINALYSIS ORD ERABLES [facility] [address] [place] [address] * (ABNORMAL) IRON + TIBC + FERRITIN (08/09/2022 1:47 PM CDT) Iron 132 50 - 180 mcg/dL [facility] TIBC 272 250 - 425 mcg/dL (calc) [facility] % Saturation 49(H) 20 - 48 % (calc) [facility] Ferritin 209 24 - 380 ng/mL [facility] Comment: Test Performed at: [facility] [employer] [address] PRUDENCIO ALDANA DO,MPH Blood BLOOD SPECIMEN / Unknown 08/09/2022 1:47 PM CDT 08/09/2022 1:50 PM CDT Ian Pollock MD LAB - CHEMISTRY JANAE ELIAS Performing Organization Address [facility] Co de Phone Number [facility] [address] [place] [address] * (ABNORMAL) CBC WITH DIFFERENTIAL (08/09/2022 1:47 [...] 1.0 % [facility] Comment: Test Performed at: [facility] [address] [place] [address] PRUDENCIO ALDANA DO,MPH Blood BLOOD SPECIMEN / Unknown 08/09/2022 1:47 PM CDT 08/09/2022 1:50 PM CDT Ian Pollock MD LAB - HEMATOLOGY ORD GLYNN Performing Organization Address City/[facility]/ZIP Co de Phone Number [facility] [address] [place] [address] * (ABNORMAL) COMPREHENSIVE METABOLIC PANEL (08/09/2022 1:47 [...] 46 U/L [facility] Comment: Test Performed at: [facility] [address] [place] [address] PRUDENCIO ALDANA DO,MPH Blood BLOOD SPECIMEN / Unknown 08/09/2022 1:47 PM CDT 08/09/2022 1:50 PM CDT Ian Pollock MD LAB - CHEMISTRY JANAE ELIAS [facility] [address] [place] [address] * MAGNESIUM BLOOD (08/09/2022 1:47 PM CDT) Magnesium 1.9 1.5 - 2.5 mg/dL [facility] Comment: Test Performed at: [facility] [address] [place] [address] PRUDENCIO ALDANA DO,MPH Blood BLOOD SPECIMEN / Unknown 08/09/2022 1:47 PM CDT 08/09/2022 1:50 PM CDT Ian Pollock MD LAB - CHEMISTRY JANAE ELIAS Performing Organization Address [facility] Co de Phone Number [facility] [address] [place] [address] * CK BLOOD (08/09/2022 1:47 PM CDT) CK 135 44 - 196 U/L [facility] Comment: Test Performed at: [employer] [address] [place] [address] PRUDENCIO ALDANA DO,MPH 08/09/2022 1:47 PM CDT 08/09/2022 1:50 PM CDT Ian Pollock MD LAB - CHEMISTRY JANAE ELIAS Performing Organization Address [facility] [place] [place] [address] * CARDIAC REHAB (05/03/2022) Only the most recent of5 resultswithin the time period is included. Narrative 05/03/2022 Ordered by an unspecified provider. Scanned Document SCANNING ONLY * PROCDOC LARGE JOINT INJECTION (03/18/2022 6:03 AM CDT) Narrative Claudio Perry MD - 03/18/2022 6:03 AM CDT Claudio Perry MD 03/18/2022 6:22 AM Orthopaedic Surgery Procedure Note Diagnosis: left [...] electronically signed by RANDA OTERO on 02/17/2022 3:43 PM . Narrative 02/17/2022 3:43 [...] compared to the equimolar-standardized total PSA (Alison [place]). Comparison of serial PSA results should be interpreted with this fact in mind. This test was performed using the Siemens chemiluminescent method. Values obtained from different assay methods cannot be used interchangeably. PSA levels, regardless of value, should not be interpreted as absolute evidence of the presence or absence of disease. Test Performed at: [facility] [place] [address] [place] [address] PRUDENCIO ALDANA DO,MPH Blood BLOOD SPECIMEN / Unknown 01/31/2022 10:17 AM CDT 01/31/2022 10:18 AM CDT Florence Ojeda MEDICAID ELIGIBILITY SPECIALIST-MAJOR APPLIANCE ASSEMBLY SUPERVISOR LAB - RAT EXTERMINATOR RY ORDERABLES [facility] [address] [place] [address] * XR HIP LEFT 2VW OR MORE (01/27/2022 9:52 AM CDT) Anatomical Region Laterality Modality Pelvis, Lower Extremity Radiogra phic Imaging 01/27/2022 10:2 1 AM CDT Impressions 01/27/2022 10:22 AM CDT IMPRESSION: Mild degenerative change. This report was electronically signed by BOOKER DEE MD on 01/27/2022 10:22 AM . Narrative 01/27/2022 10:22 AM CDT Exam: XR HIP LEFT 2VW OR MORE [...] electronically signed by BOOKER DEE MD on 01/27/2022 10:04 AM . Narrative 01/27/2022 10:04 AM CDT Exam: XR LUMBAR SPINE 2 OR 3VW [...] <=0.50 mcg/mL FEU 01/17/2022 5:14 PM CDT [facility] Comment: In the absence of clinical symptoms, a value less than or equal to 0.5 mcg/mL FEU significantly decreases the probability of PE/DVT (negative predictive value >95%). 1 mcg/mL FEU = 1 Fibrinogen Equivalent Unit (approximates 0.5 mcg/ml of D- Dimer). ISTH DIAGNOSTIC SCORING SYSTEM FOR DIC Score 0 1 2 3 Platelet Count(x10^3/uL) > 100 < 100 < 50 N/A PT Prolongation above upper limit of normal 0-3 3-6 > 6 N/A range (seconds) Fibrinogen (mg/dL) > 100 < 100 N/A N/A D-Dimer (mcg/mL FEU) < 0.50 N/A 0.50-5.0 > 5 Calculate Cumulative Score: > or = 5 :compatible with overt DIC < 5 :suggestive for non-overt DIC N/A = Non applicable Reference: Br. J. Haematol. 145:24-33,2009. Blood BLOOD SPECIMEN / Unknown Lab Venipuncture / Unknown 01/17/2022 3:53 PM CDT 01/17/2022 4:55 PM CDT Bridget Lomas MD LAB - COAGULATION O RDERABLES Performing Organization Address [facility]/ZIP Co de Phone Number [place] [id number] [place] [address], [facility] [phone] * ALLERGEN INTERPRETATION (11/08/2021 10:21 AM CASING TIER) Interpretation See Below [facility] Comment: Specific Level of Allergen IGE Class kU/L Specific IGE Antibody ----- --------- 0 <0.10 Absent/Undetectable 0/1 0.10-0.34 Very Low Level 1 0.35-0.69 Low Level 2 0.70-3.49 Moderate Level 3 3.50-17.4 High Level 4 17.5-49.9 Very High Level 5 50-100 Very High Level 6 >100 Very High Level The clinical relevance of allergen results of 0.10-0.34 kU/L are undetermined and intended for specialist use. Allergens denoted with a include results using one or more analyte specific reagents. In those cases, the test was developed and its analytical performance characteristics have been determined by [employer]. It has not been cleared or approved by the U.S. Food and Drug Administration. This assay has been validated pursuant to the CLIA regulations and is used for clinical purposes. Test Performed at: [facility] [address] [place] [address] PRUDENCIO ALDANA DO,MPH 11/08/2021 10:2 1 AM CASING TIER 11/08/2021 10:22 AM CASING TIER Tariq Recio MD LAB - SEROLOGY ORDER DANAY Performing Organization Address City/[facility]/ZIP Co de Phone Number [facility] [address] [place] [address] * (ABNORMAL) ALLERGEN RESPIRATORY PROF (IL,MO,IA) IGE (11/08/2021 10:21 AM CASING TIER) Allergen Dermatophagoides pteronyssinus <0.10 kU/L [facility] Class [...] kU/L [facility] Class 0 [facility] Allergen Cockroach Northern Irish <0.10 kU/L [facility] Class 0 [facility] Allergen Maple <0.10 kU/L [facility] Class 0 [facility] Allergen Mountain Crowder <0.10 kU/L [facility] Class 0 [facility] Allergen Hardwick Tree <0.10 kU/L [facility] Class 0 [facility] Allergen [place] <0.10 kU/L [facility] Class 0 [facility] Allergen Indianapolis Tree <0.10 kU/L [facility] Class 0 [facility] Allergen White Clay <0.10 kU/L [facility] Class 0 [facility] Allergen [place] <0.10 kU/L [facility] Class 0 [facility] Allergen Elm <0.10 kU/L [facility] Class 0 [facility] Allergen Bennett/Pecan Tree <0.10 kU/L [facility] Class 0 [facility] Allergen White Elkton <0.10 kU/L [facility] Class 0 [facility] Allergen Bermuda Grass <0.10 kU/L [facility] Class 0 [facility] Allergen Hermes Grass <0.10 kU/L [facility] Class 0 [facility] Allergen Common Ragweed <0.10 kU/L [facility] Class 0 [facility] Allergen Rough Pigweed <0.10 kU/L [facility] Class 0 [facility] Allergen Equatorial Guinean Thistle <0.10 kU/L [facility] Class 0 [facility] Allergen Rough Curiel Elder <0.10 kU/L [facility] Class 0 [facility] Allergen Mouse Urine Protein <0.10 kU/L [facility] Class 0 [facility] IgE 140(H) <UH=960 kU/L [facility] Comment: Test Performed at: [facility] [address] [place] [address] PRUDENCIO ALDANA DO,MPH 11/08/2021 10:2 1 AM CASING TIER 11/08/2021 10:22 AM CASING TIER Tariq Recio MD LAB - CHEMISTRY JANAE HERNANDEZJENN [facility] [address] [place] [address] * IR NERVE BLOCK L OR S UNILAT (01/20/2021 3:11 PM CDT) Anatomical Region Laterality Modality Spine X-Ray Angiograph y 01/20/2021 1:32 PM CDT Impressions 01/20/2021 3:11 PM CDT Impression: L4-5 translaminar (central) epidural steroid injection under fluoroscopic guidance. I, Dr. Ferris, was present and performed the entire procedure. This report was electronically signed by LEATHA FERRIS M.D. on 01/20/2021 3:11 PM . Narrative 01/20/2021 3:11 PM CDT History: Low back pain and radiculopathy Operators: 1.Dr. Ferris, Attending Physician Anesthesia: Local with 5 mL of 1% lidocaine. Procedure: Fluoroscopy-guided L4-5 translaminar (central) epidural steroid injection. Fluoroscopic time: 4.6 minutes Contrast: 1 [...] METABOLIC PANEL (CALCIUM TOTAL) (01/04/2021 1:18 PM CASING TIER) Only the most recent of4 resultswithin the time period is included. Glucose 94 65 - 99 mg/dL [facility] Comment: Fasting reference interval BUN 9 7 - 25 mg/dL [facility] Creatinine 0.87 0.70 - 1.33 mg/dL [facility] Comment: For patients >49 years of age, the reference limit for Creatinine is approximately 13% higher for people identified as -Northern Irish. eGFR by MDRD 94 > OR = [...] 10.3 mg/dL [facility] Comment: Test Performed at: [facility] [address] [place] [address] PRUDENCIO ALDANA DO,MPH Blood BLOOD SPECIMEN / Unknown 01/04/2021 1:18 PM CASING TIER 01/04/2021 1:18 PM CASING TIER John Nelson MD LAB - CHEMISTRY ORD ERABLES [facility] [address] [place] [address] * LIPID PROFILE (01/04/2021 1:18 PM CASING TIER) Only the most recent of2 resultswithin the time period is included. Cholesterol 117 <200 mg/dL [facility] HDL Cholesterol 56 > OR = 40 mg/dL [facility] Triglycerides 73 <150 mg/dL [facility] LDL Calculated 46 mg/dL (calc) [facility] Comment: Reference range: <100 Desirable range <100 mg/dL for primary prevention; <70 mg/dL for patients with CHD or diabetic patients with > or = 2 CHD risk factors. LDL-C is now calculated using the Luciano-Marlena calculation, which is a validated novel method providing better accuracy than the Friedewald equation in the estimation of LDL-C. Luciano EPSTEIN et al. LACEY. 2013;310(19): 5656-6383 (http://education.INNFOCUS/faq/TLU117) CHOL/HDLC RATIO 2.1 <5.0 (calc) [facility] Non HDL Cholesterol 61 <130 mg/dL (calc) [facility] Comment: For patients with diabetes plus 1 major ASCVD risk factor, treating to a non-HDL-C goal of <100 mg/dL (LDL-C of <70 mg/dL) is considered a therapeutic option. Test Performed at: [facility] [address] [place] [address] PRUDENCIO ALDANA DO,MPH Blood BLOOD SPECIMEN / Unknown 01/04/2021 1:18 PM CASING TIER 01/04/2021 1:18 PM CASING TIER John Nelson MD LAB - CHEMISTRY ORD ERABLES [facility] [address] [place] [address] * BRONCHIAL CHALLENGE WITH METHACHOLINE (12/21/2020 12:10 PM CASING TIER) Paul Moran MD - 12/21/2020 12:10 PM CASING TIER [facility] DEPARTMENT OF PULMONARY, CRITICAL [...] of Pulmonary, Critical Care and Sleep Medicine [facility] I have personally reviewed the fellows interpretation of the test and made any necessary corrections. Paul Galeano MD Bond Managerdrip pumper Division of Pulmonary, Critical Care, & Sleep Medicine Narrative Paul Galeano MD - 12/21/2020 12:10 PM CASING TIER Hossein Mendez DO 12/21/2020 1:36 PM Tariq Recio MD PFT ORDERABLES * FRACTIONAL EXHALED NITRIC OXIDE (12/21/2020 12:10 PM CASING TIER) Paul Moran MD - 12/21/2020 12:10 PM CASING TIER [facility] DEPARTMENT OF PULMONARY, CRITICAL [...] of Pulmonary, Critical Care and Sleep Medicine [facility] I have personally reviewed the fellows interpretation of the test and made any necessary corrections. Paul Galeano MD Bond Managerdrip pumper Division of Pulmonary, Critical Care, & Sleep Medicine Narrative Paul Galeano MD - 12/21/2020 12:10 PM CASING TIER Hossein Mendez DO 12/21/2020 1:37 PM Tariq Recio MD RESPIRATORY THERAPY ORDERABLES * FL JOINT INJECTION OR ASPIRATE (10/14/2020 10:36 AM CASING TIER) Only the most recent of3 resultswithin the time period is included. Anatomical Region Laterality Modality Upper Extremity, Lower Extremity, Pelvis, Chest Radiographic Imaging 10/14/2020 12:1 7 PM CASING TIER Impressions 10/14/2020 12:20 PM CASING TIER IMPRESSION: Successful fluoroscopic guided therapeutic left hip joint injection. This report was electronically signed by BOOKER DEE MD on 10/14/2020 12:20 PM . Narrative 10/14/2020 12:20 PM CASING TIER FLUOROSCOPIC GUIDED THERAPEUTIC INJECTION left HIP HISTORY: [...] the table in the supine position. A timeout was performed including confirmation of the correct patient, procedure, and laterality. Preliminary fluoroscopic evaluation of the hip revealed [...] ES * PSA SERIAL (09/29/2020 10:23 AM CASING TIER) PSA Total 2.2 0.0 - 4.0 ng/mL 09/29/2020 11:46 AM CASING TIER [facility] Blood BLOOD SPECIMEN / Unknown Lab Venipuncture / Unknown 09/29/2020 10:23 AM CASING TIER 09/29/2020 11:01 AM CASING TIER Florence Ojeda MEDICAID ELIGIBILITY SPECIALIST-MAJOR APPLIANCE ASSEMBLY SUPERVISOR LAB - RAT EXTERMINATOR RY ORDERABLES [address] [address], [facility] [phone] * CARDIAC PROCEDURE ORDER (06/27/2020 4:51 AM CDT) Narrative 06/27/2020 4:51 AM CDT Ordered by an unspecified provider. Scanned Document CARDIAC SERVICES ORD ERABLES * CCL CARDIAC CATH LEFT (06/17/2020 10:06 AM CDT) Anatomical Region Laterality Modality Chest X-Ray Angiograph y Narrative 07/03/2020 11:26 AM CDT [facility] Cardiac Catheterization Procedure Note Patient: Josafat Calvo Age: [age] year old Date of : 1960 Date of Admission: 06/17/2020 Procedure Date: 06/17/20 FELLOW / FIELD ARTILLERY RADAR OPERATOR: Elpidio Quigley MD ATTENDING PHYSICIAN: Mikey Donovan MD PREVIOUS STRESS STUDIES WITHIN 6 MONTHS: None DIAGNOSTIC APPROPRIATENESS CRITERIA: Suspected CAD (No Prior [...] Going for left heart cath. ACCESS SITE(S): right radial artery PROCEDURAL OVERVIEW: After obtaining informed consent and positioning the patient on the catheterization table, a timeout was performed to confirm the patient s name, date of , and procedure. Sedation was initiated and the patient was prepped and draped using standard sterile technique. Lidocaine was used for local anesthesia over the access site, after which the vessel was accessed and a sheath was placed using the modified Seldinger technique. Access was uncomplicated. At the conclusion of the procedure, hemostasis was achieved using a radial compression device after removal of all catheters, wires, and sheaths. COMPLICATIONS: None SEDATION: Moderate sedation on this [...] evaluation, please review the evaluation forms in [facility]. For details on monitored clinical parameters during the intra-service sedation time, please review the procedure nurse documentation in [facility] and [facility]. Total sedation administered as follows: 50 mcg IV fentanyl, 0.5 mg IV midazolam. 3 ml of 1% lidocaine was administered subcutaneously at the access site. TOTAL CONTRAST USED (Isovue 370): 35 ml RADIATION: AK: 409.15 mGy DAP: 53823 mGycm2 HEMODYNAMIC FINDINGS: - LVEDP 15 mmHg ANGIOGRAPHY: i. Left main: Large caliber vessel that trifurcates into LAD, LCx and ramus. No angiographically significant disease noted. ii. LAD: Medium caliber vessel with diffuse mild luminal irregularities noted. Gives off 2 diagonal branches. iii. Ramus: Medium caliber vessel with mild luminal irregularities noted. iv. LCx: Non dominant medium caliber vessel with minimal luminal irregularities diffusely. Gives off 2 obtuse marginal branches before continuing as a smaller caliber vessel in the left AV groove. Moderate ostial 30% stenosis noted. v. RCA: Dominant medium caliber vessel with diffuse mild luminal irregularities noted. Gives off rPDA distally. DOMINANCE: Right DIAGNOSTIC INTERPRETATIONS: - Non obstructive coronary arteries. - Diffuse mild luminal disease. RECOMMENDATIONS AFTER DIAGNOSTIC CATHETERIZATION: Medical management of nonobstructive CAD. Aggressive modification of atherosclerotic risk factors. Continue titration of medications for cardiomyopathy. Elpidio Heller MD 06/17/2020 I was present for the entirety of the described procedure. Mikey Donovan MD Torres Blankenship MD CARDIAC CURBER RAD IANT * PT-INR [facility] (06/17/2020 9:01 AM CDT) PT 13.6 12.1 - 14.8 Seconds 06/17/2020 9:41 AM [facility] INR 1.1 See Comment 06/17/2020 9:41 AM [facility] Comment:The suggested therap eutic range for standard coumadin (warfarin) therapy is an INR of 2.0-3.0. For high-risk patients (Mechanical Mitral Valve Prosthesis, etc.), the suggested prophylactic therapeutic range is an INR of 2.5-3.5. Blood BLOOD SPECIMEN / Unknown Venipuncture / Unknown 06/17/2020 9:01 AM CDT 06/17/2020 9:10 AM CDT Torres Blankenship MD LAB - COAGULATION OR DERABLES Performing Organization Address [facility]/State/[facility] Co de Phone Number [address] [phone] [phone] * (ABNORMAL) CBC W/O DIFFERENTIAL (06/17/2020 9:01 AM CDT) WBC 6.5 3.5 - 10.5 10 3/uL 06/17/2020 9:13 AM [facility] RBC 4.82 4.30 - 5.70 10 6/uL 06/17/2020 9:13 AM [facility] Hemoglobin 13.3(L) 13.5 - 17.5 g/dL 06/17/2020 9:13 AM [facility] Hematocrit 40.9 39.0 - 50.0 % 06/17/2020 9:13 AM [facility] MCV 84.9 81.0 - 97.0 fL 06/17/2020 9:13 AM [facility] MCH 27.6(L) 28.0 - 34.0 pg 06/17/2020 9:13 AM [facility] MCHC 32.5 32.0 - 36.0 g/dL 06/17/2020 9:13 AM [facility] Platelet Count 227 150 - 400 10 3/uL 06/17/2020 9:13 AM [facility] RDW-SD 42.4 36.0 - 50.0 fL 06/17/2020 9:13 AM CDT [facility] RDW-CV 13.7 11.2 - 14.8 % 06/17/2020 9:13 AM CDT [facility] MPV 9.9 9.3 - 12.8 fL 06/17/2020 9:13 AM CDT [facility] nRBC Absolute 0.00 0 10 3/uL 06/17/2020 9:13 AM CDT [facility] nRBC Auto 0.0 0 /100 WBC 06/17/2020 9:13 AM CDT [facility] Blood BLOOD SPECIMEN / Unknown Venipuncture / Unknown 06/17/2020 9:01 AM CDT 06/17/2020 9:10 AM CDT Torres Blankenship MD LAB - HEMATOLOGY ORD ERABLES Performing Organization Address City/State/[facility] Co de Phone Number [address] [phone] [phone] * XR PELVIS W LEFT HIP 2VW (04/27/2020 9:53 AM CDT) Anatomical Region Laterality Modality Pelvis Radiographic Joann ging 04/27/2020 12:1 3 PM CDT Impressions 04/27/2020 1:27 PM CDT IMPRESSION: Mild degenerative changes in the both hip joints. Report dictated by Fabrizio Aparicio M.D. (vice president of software development). I, Dr. BOOKER DEE MD have personally reviewed and interpreted this examination/study. This report was electronically signed by BOOKER DEE MD on 04/27/2020 1:27 PM . Narrative 04/27/2020 1:27 [...] joints. Report dictated by Fabrizio Aparicio M.D. (vice president of software development). I, Dr. BOOKER DEE MD have personally reviewed and interpreted this examination/study. This report was electronically signed by BOOKER DEE MD on04/27/2020 1:27 PM . Silvio Bain MD DIAGNOSTIC IMAGI NG ORDERABLES * (ABNORMAL) CULTURE RESPIRATORY LOWER (04/23/2020 12:18 PM CDT) Culture (A) [facility] Comment: CULTURE, SPUTUM/LOWER RESPIRATORY Micro Number: [id number] Test Status: Final Specimen Source: SPUTUM Specimen Quality: Adequate Gram Stain: Many White blood cells seen No epithelial cells seen Many Mixed bacterial marlon Yeast present Gram stain indicates that the specimen is pharmaceutical representative of the lower respiratory tract. Result: Heavy growth of Yeast Isolated. Please contact the laboratory within 3 days if further identification is desired. COMMENT: Normal oropharyngeal marlon also present. Test Performed at: [facility] [address] JOSEE THAKUR MD 04/23/2020 12:1 8 PM CDT 04/23/2020 12:19 PM CDT Agnieszka Haas MD LAB - MICROBIOLOGY O RDERABLES [address] [address] * COMPLETE PFT W/WO BRONCHODILATOR (03/24/2020) Impressions Tevin Gaspar MD - 03/24/2020 [facility] DEPARTMENT OF PULMONARY, CRITICAL CARE, AND SLEEP MEDICINE PULMONARY FUNCTION TESTS Josafat Calvo 04/08/2020 INTERPRETATION Please see technologist's comments mentioned above. SPIROMETRY: Forced vital capacity is normal. FEV1 is normal. FEV1/FVC ratio is normal. There is no significant [...] Critical Care, & Sleep Medicine [facility] P: [phone] 04/08/2020 , 9:25 AM Tevin Gaspar MD RESPIRATORY THERAPY ORDERABLES * MRI LUMBAR SPINE WO CONTRAST (11/29/2019 3:43 PM CASING TIER) Anatomical Region Laterality Modality Spine Magnetic Resonan ce 11/29/2019 3:39 PM [facility] Impressions 11/29/2019 4:05 PM [facility] IMPRESSION: Severe degenerative changes at L5-S1 with a left central disc extrusion with inferior migration of disc material resulting in compression of the traversing left S1 nerve root. Severe stenosis of bilateral L4-5 and L5-S1 neural foramina. I, Dr. JORGE QUINTANILLA have personally reviewed and interpreted this examination/study. This report was electronically signed by JORGE QUINTANILLA on 11/29/2019 4:05 PM . Narrative 11/29/2019 4:05 PM [facility] EXAMINATION: Magnetic resonance imaging (MRI) of the [...] ENTIRE 2 OR 3VW (11/04/2019 1:06 PM CASING TIER) Anatomical Region Laterality Modality Radiographic Joann ging 11/04/2019 3:25 PM [facility]ING TIER Impressions 11/04/2019 3:32 PM [facility] FINDINGS/IMPRESSION: There is no evidence of scoliosis. There is no coronal/sagittal imbalance. Pelvic tilt, left greater than right, measures approximately 1.5 cm. There is mild to moderate degenerative disc and joint disease. There is no evidence of vertebral subluxation on the sagittal view. Dictated by Harry Gomez MD (vice president of software development). Dr. PRANAY Duong have personally reviewed and interpreted this examination/study. This report was electronically signed by PRANAY MENDOZA on 11/04/2019 3:32 PM . Narrative 11/04/2019 3:32 PM CASING [facility] EXAMINATION: XR SPINE ENTIRE 2 OR 3VW [...] sagittal view. Dictated by Harry Gomez MD (vice president of software development). I, Dr. PRANAY MENDOZA have personally reviewed and interpreted this examination/study. This report was electronically signed by PRANAY MENDOZA on 11/04/2019 3:32 PM . April Mora MD DIAGNOSTIC IMAGING O RDERABLES * LAB RESULTS ORDER (09/20/2019 12:48 PM CASING TIER) Only the most recent of3 resultswithin the time period is included. Narrative 09/20/2019 12:48 PM CASING TIER Ordered by an unspecified provider. Scanned Document LAB - THERAPEUTIC DR PENA MONITORING ORDERABLES * HEPATITIS C AB W/RFLX TO HCV RNA QN PCR (09/19/2019 9:17 AM CASING TIER) Hepatitis C Antibody NON-REACTI VE NON-REACT FELY [facility] Signal to Cut-Off 0.03 <1.00 [facility] Comment: HCV antibody was non-reactive. There is no laboratory evidence of HCV infection. In most cases, no further action is required. However, if recent HCV exposure is suspected, a test for HCV RNA (test code 05876) is suggested. For additional information please refer to http://education.[facility]/faq/XCC29m5 (This link is being provided for informational/ educational purposes only.) Test Performed at: [facility] [address] [place] [address] PRUDENCIO ALDANA DO,MPH 09/19/2019 9:17 AM CASING TIER 09/19/2019 9:21 AM CASING TIER Monica Tellez MEDICAID ELIGIBILITY [employer]IST[employer] Corporation LAB - CHEMI STRY ORDERABLES Performing Organization Address [facility] [place] [address] * VITAMIN B12 (09/19/2019 9:17 AM CASING TIER) Pathologist [facility] Vitamin B12 656 200 - 1100 pg/mL [facility] Comment: Test Performed at: [facility] [address] PRUDENCIO ALDANA DO,MPH Blood BLOOD SPECIMEN / Unknown 09/19/2019 9:17 AM CASING TIER 09/19/2019 9:21 AM CASING TIER Monica Tellez [facility] - CHEMI STRY ORDERABLES Performing Organization Address [facility] [place] [address] * TSH (09/19/2019 9:17 AM CASING TIER) [facility] TSH 0.66 0.40 - 4.50 mIU/L [facility] Comment: Test Performed at: [facility] [address] PRUDENCIO ALDANA DO,MPH Blood BLOOD SPECIMEN / Unknown 09/19/2019 9:17 AM CASING TIER 09/19/2019 9:21 AM CASING TIER Monica Tellez [employer]ICA[employer] ELIGIBILITY [employer] LAB - CHEMI STRY ORDERABLES Performing Organization Address [facility] [place] [address] * URINALYSIS REFLEX TO MICROSCOPIC NO CULTURE (07/25/2019 9:35 AM CDT) Color UA YELLOW YELLOW [facility] Appearance CLEAR CLEAR [facility] Specific Mobile UA 1.016 1.001 - 1.035 [facility] pH UA 5.5 5.0 - 8.0 [facility] Glucose UA NEGATIVE NEGATIVE [facility] Bilirubin UA NEGATIVE NEGATIVE [facility] Ketone UA NEGATIVE NEGATIVE [facility] Blood UA NEGATIVE NEGATIVE [facility] Protein UA NEGATIVE NEGATIVE [facility] Nitrite UA NEGATIVE NEGATIVE [facility] Leukocyte UA NEGATIVE NEGATIVE [facility] Comment: REPORT COMMENT: FASTING:YES Test Performed at: [facility] [address] [facility] [place] [address] PRUDENCIO ALDANA DO,MPH 07/25/2019 9:35 AM CDT 07/25/2019 9:37 AM CDT Monica Gavin Rosalinda MEDICAID ELIGIBILITY SPECIALIST-[employer] LAB - URINA LYSIS ORDERABLES Performing Organization Address [facility] Co de Phone Number [facility] [address] [place] [phone] * (ABNORMAL) HEMOGLOBIN A1C (07/25/2019 9:35 AM [...] children. REPORT COMMENT: FASTING:YES Test Performed at: [facility] [place] [address] PRUDENCIO ALDANA DO,MPH 07/25/2019 9:35 AM CDT 07/25/2019 9:37 AM CDT Monica Gavin Rosalinda [facility]ICA[facility] ELIGIBILITY [facility] LAB - CHEMI STRY ORDERABLES Performing Organization Address [facility] Co de Phone Number [facility] [address] [place] [address] * (ABNORMAL) CMP 14 ABAXIS (ALEC WAIVED) [...] Dictated by Georgie Huntley MD (vice president safety). Dr. BOOKER Duong MD have personally reviewed and interpreted this examination/study. This report was electronically signed by BOOKER DEE MD on 05/20/2019 1:43 PM . Narrative 05/20/2019 1:43 [...] Dictated by Georgie Huntley MD (vice president safety). IDr. BOOKER MD have personally reviewed and interpreted this examination/study. This report was electronically signed by BOOKER DEE MD on05/20/2019 1:43 PM . Alexsandra Rosa PA-C DIAGNOSTIC IMAG ING ORDERABLES * XR THORACIC SPINE 2VW (02/21/2019 11:25 AM CDT) Anatomical Region Laterality Modality Spine Radiographic Joann ging 02/21/2019 12:3 7 PM CDT Impressions 02/21/2019 12:40 PM CDT IMPRESSION: Diffuse idiopathic skeletal hyperostosis. This report was electronically signed by BOOKER DEE MD on 02/21/2019 12:40 PM . Narrative 02/21/2019 12:40 PM CDT Exam: XR THORACIC SPINE 2VW History: back [...] L OR S UNILAT (11/14/2018 11:58 AM CASING TIER) Anatomical Region Laterality Modality Spine X-Ray Angiograph y Narrative 11/14/2018 12:51 PM CASING TIER History: 58 year old male with chronic low back pain radiating into both thighs posteriorly. Operators: 1. Dr. Ferris, Attending Physician 2. Dr. Echavarria, Resident Physician Anesthesia: Local with 5 mL of 1% lidocaine. Procedure: 1. Fluoroscopy-guided left L4-5 transforaminal nerve root steroid injection. 2. Fluoroscopy-guided right L4-5 transforaminal nerve root steroid injection. Fluoroscopic time: 10.7 minutes Contrast: 4 mL of Omnipaque 180 Procedure details: [...] COMPLETE PFT W/WO BRONCHODILATOR (09/17/2018 6:49 AM CASING TIER) Impressions Rhianna Moctezuma MD - 09/17/2018 6:49 AM CASING TIER [facility] DEPARTMENT OF PULMONARY, CRITICAL [...] Rhianna Moctezuma MD - 09/17/2018 6:49 AM CASING TIER Chencho Ambrocio MD 09/14/2018 4:51 PM Edith Hemphill MD RESPIRATORY THERAPY ORDERABLES * SIX MINUTE WALK (09/17/2018 6:49 AM CASING TIER) Impressions Rhianna Moctezuma MD - 09/17/2018 6:49 AM CASING TIER [facility] DEPARTMENT OF PULMONARY, CRITICAL CARE, AND SLEEP MEDICINE SIX MINUTE WALK TEST Josafat Calvo 09/14/2018 Interpretation: The patient walked for 6 minutes on room air and covered total distance of 430 meters. On the Jacqueline scale at baseline, reported dyspnea was 0 and fatigue was 0. At the end of the study, the Jacqueline reported dyspnea was 3 and fatigue was 3. There were no additional symptoms reported and oxygen [...] Rhianna Moctezuma MD - 09/17/2018 6:49 AM CASING TIER Chencho Ambrocio MD 09/14/2018 4:47 PM Edith Hemphill MD RESPIRATORY THERAPY ORDERABLES * PFT OXYGEN DESATURATION STUDY (09/17/2018 6:49 AM CASING TIER) Impressions Rhianna Moctezuma MD - 09/17/2018 6:49 AM CASING TIER [facility] DEPARTMENT OF PULMONARY, CRITICAL CARE, AND SLEEP MEDICINE OXYGEN TITRATION STUDY Josafat Branch Umesh 09/14/2018 INTERPRETATION The test was performed on the treadmill at a speed of 1 mph at room air. The patient was able to complete 4 minutes [...] Rhianna Moctezuma MD - 09/17/2018 6:49 AM CASING TIER Chencho Ambrocio MD 09/14/2018 4:44 PM Edith Hemphill MD PFT ORDERABLES * FRACTIONAL EXHALED NITRIC OXIDE (09/17/2018 6:49 AM CASING TIER) Impressions Rhianna Moctezuma MD - 09/17/2018 6:49 AM CASING TIER [facility] DEPARTMENT OF PULMONARY, CRITICAL [...] Rhianna Moctezuma MD - 09/17/2018 6:49 AM CASING TIER Chencho Ambrocio MD 09/14/2018 4:43 PM Edith Hemphill MD RESPIRATORY THERAPY ORDERABLES * (ABNORMAL) GLUCOSE - POINT OF CARE (11/04/2015 10:34 PM CASING TIER) Glucose WB/POC 210(H) 70 - 125 mg/dL 11/05/2015 6:16 AM CASING TIER [facility] Blood BLOOD SPECIMEN / Unknown 11/04/2015 10:34 PM CASING TIER 11/05/2015 6:16 AM CASING TIER Narrative [facility] - 11/05/2015 6:16 AM CASING TIER NOTIFIED CAREGIVER Robert Angelo DO LAB - POINT OF CARE ORDERABLES Performing Organization Address City/[facility]/ZIP Co de Phone Number [facility] [address] * VALPROIC ACID LEVEL (11/04/2015 11:03 AM CASING TIER) [facility] Valproic Acid 57.84 50 - 100 ug/mL 11/04/2015 11:53 AM CASING TIER [facility] Blood BLOOD SPECIMEN / Unknown Lab Venipuncture / Unknown 11/04/2015 11:03 AM CASING TIER 11/04/2015 11:09 AM CASING TIER Lucille Dong MEDICAID ELIGIBILITY SPECIALIST-MAJOR APPLIANCE ASSEMBLY SUPERVISOR LAB - CHEMISTRY ORDERABLES Performing Organization Address City/[facility] Co de Phone Number [facility] [address] Care Teams Solar System Designer Relationship Specialty Start Date End Date Natalie Baum [address] [place] [address] PCP - General 05/06/24 Katina Casiano DO [address] [facility] [address] [facility] INTERNAL MEDICINE [place], [place] Hospitalist 06/05/23 Tracey Ang PA [address] [facility] [address] [place] [address] Physician Nursing Program Manager 08/15/23
--- OUTSIDE RECORDS SUMMARY | 2024-12-12 20:04 | XMS_ITS | Encounter Summary ---
Author Organization [facility] Address [address] [place] [address] Care Team Providers Care Receptionist Telephone Operator Name Role Phone Ian Pollock MD Primary Care Provider [phone] Ian Pollock MD Primary Care Provider [phone] Ian Pollock MD Primary Care Provider [phone] Ian Pollock MD Primary Care Provider [phone] Katina Casiano DO Unavailable [phone] Xavi ACOSTA MD, Jameel R Primary Care Provider + Katina Casiano DO Unavailable [phone] Tracey Ang PA Unavailable [phone] Belkis Angel SAND TECHNOLOGIST-EXPERIMENTAL MECHANIC ELECTRICAL Primary Care Provider + Natalie Baum Primary Care Provider [phone] Reason for Visit * Reason Onset Date Comments MEDICATION REFILL 05/05/2020 Encounter Details Date Type Department Care Team (Late st Contact Info) Description 05/05/2020 Refill [facility] Pulmonary, Critical Care and Sleep Medicine [address] [place] [address] Agnieszka Haas MD [address] [place] [address] MEDICATION REFILL Social History Tobacco Use Types [...] on filedocumented in this encounter Care Teams Receptionist Telephone Operator Relationship Specialty Start Date End Date Ian Pollock MD PCP - General 12/13/19 05/25/20 Ian Pollock MD PCP - General 05/26/20 06/15/20 Ian Pollock MD [address] [facility] [place] [address] PCP - General 07/31/20 08/20/20 Ian Pollock MD [address] [facility] [place] [address] PCP - General 08/21/20 05/29/23 Jameel Hurley III, MD [address] [facility] [place] [id number] PCP - General Internal Medicine 06/05/23 08/28/23 Belkis Angel, SAND TECHNOLOGIST-EXPERIMENTAL MECHANIC ELECTRICAL [address] [facility] 2nd [place] [id number] PCP - General Nurse Practitioner 08/29/23 05/05/24 Natalie Baum [address] [place] [address] PCP - General 05/06/24 Katina Casiano DO [address] [facility] INTERNAL MEDICINE [place], [place] Resident - PCP Internal Medicine 08/10/22 05/29/23 Katina Casiano DO [address] [facility] INTERNAL MEDICINE [place], [place] Hospitalist 06/05/23 Tracey Ang PA [address] [facility] [address] [place] [address] Physician Nursery Teacher 08/15/23 documented as of this encounter
--- NOTE | 2024-12-12 20:05 | ECG_ITS ---
Test Date: 2024-12-12 20:10:56 Measurements Intervals [place] Rate: 79 P: 52 OK: 140 QRS: 29 QRSD: 97 T: 56 QT: 387 QTc: 444 Interpretive Statements SINUS RHYTHM EARLY PRECORDIAL R/S TRANSITION BASELINE ARTIFACT- I, II, III ,AVR, AVL, AVF, V1-V6 BORDERLINE ECG Compared to ECG 12/04/2024 05:29:58 No significant changes Electronically Signed On 12-13-2024 06:48:15 NURSE EXTERN by Ian Lopez D.O.
--- OUTSIDE RECORDS SUMMARY | 2024-12-12 20:05 | XMS_ITS | Encounter Summary ---
Author Organization [facility] Address [address] [place] [address] Care Team Providers Care Sql Server Bi Developer Name Role Phone Matthew Mccabe MD Primary Care Prov ider Stan Meza MD Unavailable [phone] Reason for Visit * Reason Comments Shortness of Breath Encounter Details Date Type Department Care Team (Late st Contact Info) Description 12/12/2024 8:08 AM MANUFACTURING OPERATOR - 12/12/2024 1:30 PM MANUFACTURING OPERATOR Emergency [facility] Emergency Department [address] [place] [address] Julio Rodriguez MD [address] [place] [address] Shortness of breath (Primary Dx); History of lung cancer; Pneumonia due to infectious organism, unspecified laterality, unspecified part of lung Discharge Disposition: Discharge to home or self [...] making you feel afraid or unsafe? Denies 12/12/2024 Sex and Gender Information Value Date Recorded Sex Assigned at Not on file Legal Sex Male 6:04 PM MANUFACTURING OPERATOR Gender Identity Not on file Sexual Orientation Not on file documented as of this encounter Last Filed Vital Signs Vital Sign Reading Time Taken Comments Blood Pressure 205/132 12/12/2024 1:00 PM MANUFACTURING OPERATOR Pulse 79 12/12/2024 1:00 PM MANUFACTURING OPERATOR Temperature 36.7 C (98.1 F) 12/12/2024 8:02 AM MANUFACTURING OPERATOR Respiratory Rate 20 12/12/2024 1:00 PM MANUFACTURING OPERATOR Oxygen Saturation 100% 12/12/2024 1:00 PM MANUFACTURING OPERATOR Inhaled Oxygen Concentration - - Weight 83.9 kg (185 lb) 12/12/2024 8:02 AM MANUFACTURING OPERATOR Height 175.3 cm (5' 9 ) 12/12/2024 8:02 AM MANUFACTURING OPERATOR Body Mass Index 27.32 12/12/2024 8:02 AM MANUFACTURING OPERATOR documented in this encounter Discharge Instructions * Discharge Instructions* Anderson Bahena MD - 12/12/2024 12:03 PM MANUFACTURING OPERATOR You were seen in the emergency department for shortness of breath. Your physical exam and workup today are reassuring. Please follow up with your oncologist for any further evaluation & management of your cancer and symptoms. Please take Ceftin and doxycycline twice daily for 7 days for potential pneumonia and follow up with your primary care provider to ensure resolution of symptoms. Return to the emergency department if you develop chest pain, worsening difficulty breathing, dizziness, uncontrollable vomiting, fainting, or confusion. FACTURING OPERATOR FACTURING OPERATOR * Attachments The following attachments cannot be sent through Care Everywhere. * Shortness of Breath (Dyspnea) (Icelandic) documented in this encounter Medications at Time [...] by mouth 2 (two) times a day calcium carbonate-vitami n D3 1,250 mg (500 mg elemental)-400 unit tablet Take 1 tablet by mouth home connect lpn before breakfast 30 tablet 3 4 carvediloL (COREG) 12.5 mg tablet Take 1 tablet (12.5 mg total) by mouth 2 (two) times a day with meals 4 cefuroxime (CEFTIN) 500 mg tablet Take 1 tablet (500 mg total) by mouth 2 (two) times a day for 7 days 14 tablet 5 12/19/19 25 cholecalciferol (VITAMIN D-3) 2000 unit capsule 4 dexAMETHasone (DECADRON) 4 mg tabletIndication s:Primary cancer of left lower lobe of lung (HCC) Take 8 mg (2 tabs) by mouth once on Day 2, then 8 mg (2 tabs) twice daily on Days 3 and 4. 10 tablet 3 4 doxycycline (doxycycline hyclate) 100 mg capsule Take 1 tablet/capsule (100 mg total) by mouth 2 (two) times a day for 7 days 14 capsule 5 12/19/19 25 eplerenone (INSPRA) 25 mg tablet Take 1 tablet (25 mg total) by mouth daily 4 food supplemt, lactose-reduced 0.05 gram- 1.5 kcal/mL liquid Take 1 Bottle by mouth daily 5688 mL 2 4 hydrOXYzine (VISTARIL) 100 mg capsule TAKE 1 CAPSULE (100MG) BY MOUTH EVERY 8 HOURS IF NEEDED FOR 30 DAYS 4 ipratropium-albu teroL (DUO-NEB) 0.5-2.5 mg/3 mL nebulizer solution INHALE 3 ML VIA NEBULIZER FOUR TIMES DAILY NEEDED FOR SHORTNESS OF BREATH OR WHEEZING 4 lamoTRIgine (LaMICtal) 100 mg tablet Take 1 tablet (100 mg total) by mouth 2 (two) times a day latanoprost (XALATAN) 0.005 % ophthalmic solution 1 drop nightly 9 LORazepam (ATIVAN) 0.5 mg tablet daily losartan (COZAAR) 50 mg tablet Take 1 tablet (50 mg total) by mouth daily 4 mirtazapine (REMERON) 7.5 mg tablet daily 4 morphine ER (MS CONTIN) 30 mg 12 hr tablet Take 1 tablet (30 mg total) by mouth every 12 (twelve) hours 60 tablet 5 nicotine (NICODERM CQ) [address] 1 [...] not stop nausea 24 tablet 3 4 oxyCODONE (ROXICODONE) 5 mg immediate release tabletIndication s:Pain,cancer related pain Take 1-2 tablets (5-10 mg total) by mouth every 4 (four) hours as needed for pain 120 tablet 5 potassium chloride ER (KLOR-CON) 20 mEq CR tablet Take 1 tablet (20 mEq total) by mouth daily 14 tablet 5 senna (SENOKOT) 8.6 mg tablet daily senna-docusate (PERICOLACE) 8.6-50 mgIndications:co nstipation Take 2 tablets by mouth daily 60 tablet 3 4 Symbicort 160-4.5 mcg/actuation inhaler Inhale 2 puffs daily 02 3 traMADoL (ULTRAM) 50 mg tablet every 12 [...] 2 (two) times a day with meals documented as of this encounter Ordered Prescriptions Prescription Sig Dispense Quantity Refills Last Filled Start Date End Date doxycycline (doxycycline hyclate) 100 mg capsule Take 1 tablet/capsu le (100 mg total) by mouth 2 (two) times a day for 7 days 14 capsule 12/12/2024 12/19/2024 cefuroxime (CEFTIN) 500 mg tablet Take 1 tablet (500 mg total) by mouth 2 (two) times a day for 7 days 14 tablet 12/12/2024 12/19/2024 documented in this encounter Discharge Disposition Disposition Code Departure Means Destination Comment s Discharge to home or self care documented in this encounter ED Notes * Mary Ellen Andrews RN - 12/12/2024 8:08 AM CST Bed: ED2-18 Expected date: Expected time: Means of arrival: Other Comments: Mary Ellen Andrews RN 12/12/24 0808 FACTURING OPERATOR * Aliza Siu RN - 12/12/2024 7:59 AM CST Pt to ED c/o increased shortness of breath since last night, worse with exertion. History of asthma, lung cancer, pneumonia (a few weeks ago). Pt endorses new cough and nasal congestion. A&Ox4. Respirations even and unlabored on 2L NC. FACTURING OPERATOR documented in this encounter Miscellaneous Notes * ED Procedure Note - Julio Rodriguez MD - 12/12/2024 8:16 AM MANUFACTURING OPERATOR Associated Order(s): ECG 12 lead Procedure ECG 12 lead Date/Time: 12/12/2024 8:16 AM Performed by: Julio Rodriguez MD Authorized by: Natalie Guzman MD Rate: ECG rate: 72 ECG rate assessment: normal Rhythm: Rhythm: sinus rhythm Ectopy: Ectopy: none QRS: QRS axis: Normal QRS intervals: Normal Conduction: Conduction: normal ST segments: ST segments: Normal T waves: T waves: normal Previous ECG: Previous ECG: Unavailable Interpretation: Interpretation: normal Recommended Follow-up: Recommended follow up: further workup in the ED Julio Rodriguez MD 12/12/24 0816 FACTURING OPERATOR * ED Pre-Arrival Note - Eric Crowe RN - 12/12/2024 7:44 AM MANUFACTURING OPERATOR Pre-Arrival Note Patient being sent from [place] CT scan for evaluation of shortness of breath. Patient was scheduled to have a lung cancer staging scan but developed shortness of breath when trying to obtain IV access. Pt did not receive scan so sending patient to ED for evaluation of the shortness of breath. Comingby transport. Eric Crowe RN FACTURING OPERATOR documented in this encounter Plan of Treatment Not on file documented as of this encounter Procedures Procedure Name Priority Date/Time Associated Diagnosis Comments CT CHEST ABDOMEN PELVIS W CONTRAST ED 12/12/2024 11:[address] HEAD WO CONTRAST ED 12/12/2024 1 1:00 AM MANUFACTURING OPERATOR TROPONIN I HIGH-SENSITIVITY 2-HOUR Timed 12/12/2024 10:33 AM MANUFACTURING OPERATOR XR CHEST PA LATERAL 2 VIEWS ED 12/12/2024 10:28 AM MANUFACTURING OPERATOR INFLUENZA A/B, RSV, AND COVID-19 PCR STAT 12/12/2024 9:35 AM MANUFACTURING OPERATOR PRO B-TYPE NATRIURETIC PEPTIDE STAT 12/12/2024 9:35 AM MANUFACTURING OPERATOR TROPONIN I HIGH-SENSITIVITY SERIES (BASELINE, 2HR, 4HR, 6HR) STAT 12/12/2024 8:45 AM MANUFACTURING OPERATOR EGFR STAT 12/12/2024 8:45 AM MANUFACTURING OPERATOR DIFFERENTIAL AUTO STAT 12/12/2024 8:4 5 AM MANUFACTURING OPERATOR CBC WITH AUTO DIFFERENTIAL STAT 12/12/2024 8:45 AM MANUFACTURING OPERATOR COMPREHENSIVE METABOLIC PANEL STAT 12/12/2024 8:45 AM MANUFACTURING OPERATOR ECG 12-LEAD STAT 12/12/2024 8:16 AM MANUFACTURING OPERATOR documented in this encounter Results * CT Head WO Contrast (12/12/2024 11:00 AM MANUFACTURING OPERATOR) Anatomical Region Laterality Modality Head and Neck N/A Computed Tomogra phy 12/12/2024 11:0 7 AM MANUFACTURING OPERATOR Impressions 12/12/2024 11:07 AM MANUFACTURING OPERATOR 1. No acute intracranial hemorrhage, mass effect, or large new area of edema.. Note is made that a contrast-enhanced examination would be more sensitive for the detection of intracranial metastases. Electronically signed by: Luciano Napier M.D. Narrative 12/12/2024 11:07 AM MANUFACTURING OPERATOR EXAMINATION: CT head without contrast HISTORY: Metastatic disease evaluation TECHNIQUE: CT of the head was performed with images acquired from skull base to vertex without intravenous contrast. COMPARISON: Brain MR from 07/31/2024 FINDINGS: The re is no acute intracranial hemorrhage. Scattered periventricular white matter hypodensities likely reflect sequela of chronic small vessel ischemic disease, similar to prior MR examination. Intracranial atherosclerosis noted. Dural calcifications present. Ventricles are of normal size and morphology. No mass effect or midline shift is present. The porter-white matter differentiation is normal. The visualized portions of the orbits are normal. The visualized portions of the mastoids are normal. Mild mucosal thickening in the paranasal sinuses. No fractures are identified. Procedure Note Luciano Napier MD - 12/12/2024 EXAMINATION: CT head without contrast HISTORY: Metastatic disease evaluation TECHNIQUE: CT of the head was performed with images acquired from skull base to vertex without intravenous contrast. COMPARISON: Brain MR from 07/31/2024 FINDINGS: The re is no acute intracranial hemorrhage. Scattered periventricular white matter hypodensities likely reflect sequela of chronic small vessel ischemic disease, similar to prior MR examination. Intracranial atherosclerosis noted. Dural calcifications present. Ventricles are of normal size and morphology. No mass effect or midline shift is present. The porter-white matter differentiation is normal. The visualized portions of the orbits are normal. The visualized portions of the mastoids are normal. Mild mucosal thickening in the paranasal sinuses. No fractures are identified. IMPRESSION: 1. No acute intracranial hemorrhage, mass effect, or large new area of edema.. Note is made that a contrast-enhanced examination would be more sensitive for the detection of intracranial metastases. Electronically signed by: Luciano Napier M.D. Anderson Bahena MD IM CT PROCEDURES Final Result * CT Chest Abdomen Pelvis W Contrast (12/12/2024 11:00 AM MANUFACTURING OPERATOR) Anatomical Region Laterality Modality Body N/A Computed Tomogra phy 12/12/2024 11:3 3 AM MANUFACTURING OPERATOR Impressions 12/12/2024 11:33 AM MANUFACTURING OPERATOR 1. Similar burden of osseous metastasis, treated bilateral adrenal metastasis, and slightly smaller measurement of left hilar tumor. No evidence of progression. 2. Similar degree of mild severity peripheral lung damage/organized pneumonia. Electronically signed by: El Bee M.D. Narrative 12/12/2024 11:33 AM MANUFACTURING OPERATOR EXAMINATION: Computed tomography of the chest, abdomen and pelvis with intravenous contrast HISTORY: Metastatic disease evaluation TECHNIQUE: Transaxial computed tomographic images of the chest, abdomen and pelvis were obtained with intravenous contrast according to the standard protocol after the uneventful administration of intravenous contrast. FINDINGS: Comparison September 2024. There is similar peribronchial thickening throughout the left upper lobe with some better expansion and decrease in the peribronchial thickening/atelectasis that has improved from older imaging such as July were left upper lobe is prominently collapse. Mild severity peripheral reticulation may be sequela of lung damage/organized pneumonia. No new area of scarring or architectural distortion along. The left suprahilar tumor is slightly smaller, 2.6 x 1.8 cm soft tissue image 60, previously measured 2.8 x 2.0 cm. There is less extrinsic compression of the left subsegmental bronchi. No new areas of lymphadenopathy or mass involvement. Heart size upper limit normal. Moderate atherosclerosis thoracic aorta extends to its branches. No suspicious findings in the liver. There are small sub-15 mm cyst in hepatic segment IVb and 2. Morphologically within normal limits bilateral adrenal glands, previously with bulky metastasis remain normal in size now similar to prior examination. No suspicious finding pancreas, spleen, kidneys. Urinary bladder is stably thick-walled, unchanged from the prior. Area of vague hypoattenuation at the pancreatic head/uncinate process is favored represent interdigitated fat or possibly a small cystic lesion. No acute process small or large bowel. Severe atherosclerosis abdominal aorta extending to its branches. The common iliac arteries are ectatic and borderline aneurysmal. 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 Severe osteoarthritis left hip with acetabular remodeling was not avid on prior PET. 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 Does not appear substantially worse or better the prior examination. Chronic compression fracture superior endplate L2 mild severity.. Procedure Note El Bee MD - 12/12/2024 EXAMINATION: Computed tomography of the chest, abdomen and pelvis with intravenous contrast HISTORY: Metastatic disease evaluation TECHNIQUE: Transaxial computed tomographic images of the chest, abdomen and pelvis were obtained with intravenous contrast according to the standard protocol after the uneventful administration of intravenous contrast. FINDINGS: Comparison September 2024. There is similar peribronchial thickening throughout the left upper lobe with some better expansion and decrease in the peribronchial thickening/atelectasis that has improved from older imaging such as July were left upper lobe is prominently collapse. Mild severity peripheral reticulation may be sequela of lung damage/organized pneumonia. No new area of scarring or architectural distortion along. The left suprahilar tumor is slightly smaller, 2.6 x 1.8 cm soft tissue image 60, previously measured 2.8 x 2.0 cm. There is less extrinsic compression of the left subsegmental bronchi. No new areas of lymphadenopathy or mass involvement. Heart size upper limit normal. Moderate atherosclerosis thoracic aorta extends to its branches. No suspicious findings in the liver. There are small sub-15 mm cyst in hepatic segment IVb and 2. Morphologically within normal limits bilateral adrenal glands, previously with bulky metastasis remain normal in size now similar to prior examination. No suspicious finding pancreas, spleen, kidneys. Urinary bladder is stably thick-walled, unchanged from the prior. Area of vague hypoattenuation at the pancreatic head/uncinate process is favored represent interdigitated fat or possibly a small cystic lesion. No acute process small or large bowel. Severe atherosclerosis abdominal aorta extending to its branches. The common iliac arteries are ectatic and borderline aneurysmal. 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 Severe osteoarthritis left hip with acetabular remodeling was not avid on prior PET. 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 Does not appear substantially worse or better the prior examination. Chronic compression fracture superior endplate L2 mild severity.. IMPRESSION: 1. Similar burden of osseous metastasis, treated bilateral adrenal metastasis, and slightly smaller measurement of left hilar tumor. No evidence of progression. 2. Similar degree of mild severity peripheral lung damage/organized pneumonia. Electronically signed by: El Bee M.D. us Anderson Bahena MD IMG CT PROCEDURES Final Result * Troponin I high-sensitivity 2-hour (12/12/2024 10:33 AM MANUFACTURING OPERATOR) Trop I hs 6 <=35 ng/L Comment: Interpretive Data For further hscTnI resources including the diagnostic algorithm and an aid in interpretation, copy and paste this link: [email or web address].testcatalog.org/show/[email or web address] Current Interpretive Data last revised 2020. Trop I hs delta 1 ng/L [facility] Trop I hs interp Insignificant [facility] Blood 12/12/2024 10:3 3 AM MANUFACTURING OPERATOR 12/12/2024 10:45 AM MANUFACTURING OPERATOR us Natalie Guzman MD LAB BLOOD ORDERABLES Yolette l Result [facility] Department [place] [address] * XR Chest PA Lateral 2 Views (12/12/2024 10:28 AM MANUFACTURING OPERATOR) Anatomical Region Laterality Modality Body, Chest N/A Computed Radiogr aphy 12/12/2024 11:1 1 AM MANUFACTURING OPERATOR Impressions 12/12/2024 11:11 AM MANUFACTURING OPERATOR Comparison May 2024. Low lung volumes. Mild scattered atelectasis throughout the lung. Some increased scattered airspace opacities throughout the right lung base diffusely probably represents the sequela of the peripheral lung injury/organized pneumonia seen on prior chest CT September 2024. No consolidation suspicious for a lobar bacterial pneumonia. No pulmonary edema or pleural effusion. No pneumothorax. Cardiac mediastinal silhouette unchanged. Electronically signed by: El Bee M.D. Narrative 12/12/2024 11:11 AM MANUFACTURING OPERATOR EXAMINATION: 2 view chest radiograph Procedure Note El Bee MD - 12/12/2024 EXAMINATION: 2 view chest radiograph IMPRESSION: Comparison May 2024. Low lung volumes. Mild scattered atelectasis throughout the lung. Some increased scattered airspace opacities throughout the right lung base diffusely probably represents the sequela of the peripheral lung injury/organized pneumonia seen on prior chest CT September 2024. No consolidation suspicious for a lobar bacterial pneumonia. No pulmonary edema or pleural effusion. No pneumothorax. Cardiac mediastinal silhouette unchanged. Electronically signed by: El Bee M.D. Julio Rodriguez MD IMG XR PROCEDURES Yolette l Result * Influenza A/B, RSV, and COVID-19 PCR Nasopharyngeal (12/12/2024 9:35 AM MANUFACTURING OPERATOR) [facility] COVID-19 RNA Negative Negative [facility] Influenza A RNA Negative Negative [facility] Influenza B RNA Negative Negative [facility] RSV RNA Negative Negative [facility] Comment: Interpretive data: Testing performed by [facility] ([phone]). This test is performed using the [employer] Xpert Xpress CoV-2/Flu/RSV plus assay. This is a multiplex, real-time reverse transcriptase PCR assay intended for the qualitative detection of nucleic acid from SARS-CoV-2, influenza A, influenza B, and respiratory syncytial virus. This assay has been cleared by the [place] Food and Drug administration. The performance characteristics have been verified by the [facility]. Results must be considered in the clinical context, and a negative result does not rule out infection. Interpretive Data last revised 2023 Nasopharyngeal 12/12/2024 9: 35 AM MANUFACTURING OPERATOR 12/12/2024 9:46 AM MANUFACTURING OPERATOR Narrative [facility] - 12/12/2024 10:27 AM MANUFACTURING OPERATOR Is the Patient experiencing symptoms consistent with COVID?->No Anderson Bahena MD LAB MICROBIOLOGY - GENE RAL ORDERABLES Final Result [facility] [place] [address] [facility] * (ABNORMAL) Pro B-type natriuretic peptide (12/12/2024 9:35 AM MANUFACTURING OPERATOR) NT-proBNP 695(H) <=300 pg/mL Comment: Interpretive Comments: A. Dyspnea in Acute Care Setting All Ages: < 300 pg/ml, acute heart failure unlikely. < 50 yrs: 300 - 450 pg/ml, further investigation warranted. > 450 pg/ml, acute heart failure likely. 50 - 74 yrs: 300 - 900 pg/ml, further investigation warranted. > 900 pg/ml, acute heart failure likely . > or = 75 yrs: 450 - 1800 pg/ml, further investigation warranted. > 1800 pg/ml, acute heart failure likely. B. Non-acute Setting < 75 yrs < 125 pg/ml, rules out heart failure. > or = 125 pg/ml, further investigation warranted. > or = 75 yrs < 450 pg/ml, rules out heart failure. > or = 450 pg/ml, further investigation warranted. - Knowledge of each individual patient's NT-proBNP range may be more useful than using similar cut-points for every patient. Please note that marked elevations in NT-proBNP levels may be observed in state other than Left Ventricular Congestive Failure, including: acute coronary syndromes, right heart strain/failure (including pulmonary embolism and cor pulmonale), critical illness, renal failure, as well as advanced age. - References: 1. Traci JL et.al. Eur Heart J. 2006:27:330-337. 2. Chapito RW, Lawrence AM. J. AM Ana Cardiol: Cardiovasc Imag. 2009;2: 216- 225. Interpretive Data Last Revised Date: 2018. Blood 12/12/2024 9:35 AM MANUFACTURING OPERATOR 12/12/2024 9:48 AM MANUFACTURING OPERATOR us Anderson Bahena MD LAB BLOOD ORDERABLES Fi nal Result [facility] Department [place] [address] * eGFR (12/12/2024 8:45 AM MANUFACTURING OPERATOR) eGFR >90 >=60 mL/min/1. 73 m2 Comment: Interpretive Data Reference Interval Normal >/= 90 mL/min/1.73m2 Mildly decreased* 60 - 89 mL/min/1.73m2 Mildly to moderately decreased 45 - 59 mL/min/1.73m2 Moderately to severely decreased 30 - 44 mL/min/1.73m2 Severely decreased 15 - 29 mL/min/1.73m2 Kidney Failure < 15 mL/min/1.73m2 *Relative to young adult level Estimated glomerular [...] interpretive data was last reviewed 2021. Blood 12/12/2024 8:45 AM MANUFACTURING OPERATOR 12/12/2024 8:55 AM MANUFACTURING OPERATOR Julio Rodriguez MD LAB BLOOD ORDERABLES F inal Result [facility] Department [place] [address] * (ABNORMAL) Differential, auto (12/12/2024 8:45 AM MANUFACTURING OPERATOR) Neutrophil abs 3.7 1.5 - 6.5 K/cumm Imm gran abs 0.0 0.0 - 0.1 K/cumm [facility] Lymphocyte abs 0.7(L) 0.8 - 3.3 K/cumm [facility] Monocyte abs 0.4 0.2 - 0.8 K/cumm [facility] Eosinophil abs 0.3 0.0 - 0.5 K/cumm [facility] Basophil abs 0.0 0.0 - 0.1 K/cumm [facility] Neutrophil pct 72.0 % [facility] Comment: Interpretive Data Percent cell count reference ranges are not reported, since discordance with absolute values may lead to misinterpretation of CBC data. Current Interpretive Data was last revised on 2018. Imm gran pct 0.4 % [facility] Comment: Interpretive Data Percent cell count reference ranges are not reported, since discordance with absolute values may lead to misinterpretation of CBC data. Current Interpretive Data was last revised on 2018. Lymphocyte pct 12.7 % [facility] [place] Comment: Interpretive Data Percent cell count reference ranges are not reported, since discordance with absolute values may lead to misinterpretation of CBC data. Current Interpretive Data was last revised on 2018. Monocyte pct 7.6 % [facility] [place] Comment: Interpretive Data Percent cell count reference ranges are not reported, since discordance with absolute values may lead to misinterpretation of CBC data. Current Interpretive Data was last revised on 2018. Eosinophil pct 6.7 % [facility] [place] Comment: Interpretive Data Percent cell count reference ranges are not reported, since discordance with absolute values may lead to misinterpretation of CBC data. Current Interpretive Data was last revised on 2018. Basophil pct 0.6 % [facility] Comment: Interpretive Data Percent cell count reference ranges are not reported, since discordance with absolute values may lead to misinterpretation of CBC data. Current Interpretive Data was last revised on 2018. Blood 12/12/2024 8:45 AM MANUFACTURING OPERATOR 12/12/2024 8:55 AM MANUFACTURING OPERATOR Julio Rodriguez MD LAB BLOOD ORDERABLES F inal Result [facility] Department [place] [address] * Troponin I high-sensitivity series (baseline, 2hr, 4hr, 6hr) (12/12/2024 8:45 AM MANUFACTURING OPERATOR) Trop I hs 5 <=35 ng/L Comment: Interpretive Data For further hscTnI resources including the diagnostic algorithm and an aid in interpretation, copy and paste this link: https://bjhlab.testcatalog.org/show/hsTrop-1 Current Interpretive Data last revised 2020. Blood 12/12/2024 8:45 AM MANUFACTURING OPERATOR 12/12/2024 8:55 AM MANUFACTURING OPERATOR Julio Rodriguez MD LAB BLOOD ORDERABLES F inal Result Performing Organization Address City/[facility]/ZIP Co de Phone Number [facility] Department of [employer] [place] [address] * (ABNORMAL) CBC with auto differential (12/12/2024 8:45 AM MANUFACTURING OPERATOR) Pathologist [facility] WBC 5.1 3.8 - 9.9 K/cumm Hgb 10.3(L) 13.0 - 17.5 g/dL [facility] Hct 31.8(L) 38.9 - 50.3 % [facility] Plt 176 150 - 400 K/cumm [facility] MPV 8.9(L) 9.1 - 12.[address] [facility] RBC 3.55(L) 4.30 - 5.80 M/cumm [facility] MCV 89.6 81.3 - 96.[address] [facility] MCH 29.0 27.1 - 33.[address] [facility] MCHC 32.4 32.3 - 35.7 g/dL [facility] RDW CV 19.2(H) 11.1 - 14.9 % [facility] RDW SD 63.2(H) 35.7 - 48.[address] [facility] NRBC abs 0.00 0.00 - 0.01 K/cumm [facility] Blood 12/12/2024 8:45 AM MANUFACTURING OPERATOR 12/12/2024 8:55 AM MANUFACTURING OPERATOR Julio Rodriguez MD LAB BLOOD ORDERABLES F inal Result [facility] of [employer] [place] [address] * (ABNORMAL) Comprehensive metabolic panel (12/12/2024 8:45 AM MANUFACTURING OPERATOR) Sodium 133(L) 135 - 145 mmol/L Potassium, pl 4.0 3.3 - 4.9 mmol/L [facility] Chloride 97 97 - 110 mmol/L [facility] CO2 29 22 - 32 mmol/L [facility] Anion gap 7 2 - 15 mmol/L [facility] BUN 3(L) 6 - 25 mg/dL [facility] Creatinine 0.54(L) 0.80 - 1.30 mg/dL [facility] Glucose 101 70 - 199 mg/dL [facility] Comment: Interpretive Data Fasting glucose >/= 126 mg/dl is diagnostic for diabetes. Fasting is defined as no caloric intake [...] interpretive data was last revised 2022. Calcium 9.4 8.5 - 10.3 mg/dL [facility] Bilirubin, total 0.4 0.1 - 1.2 mg/dL [facility] Protein, pl 6.6 6.5 - 8.5 g/dL [facility] Albumin 3.6 3.5 - 5.0 g/dL [facility] Alk phos 121 40 - 130 Units/L [facility] ALT 11 7 - 55 Units/L [facility] AST 19 10 - 50 Units/L [facility] Blood 12/12/2024 8:45 AM MANUFACTURING OPERATOR 12/12/2024 8:55 AM MANUFACTURING OPERATOR us Julio Rodriguez MD LAB BLOOD ORDERABLES F inal Result [facility] Department [place] [address] * ECG 12-LEAD (12/12/2024 8:16 AM MANUFACTURING OPERATOR) Narrative [facility] - 12/12/2024 8:16 AM MANUFACTURING OPERATOR Julio Rodriguez MD 12/12/2024 8:16 AM ECG 12 lead Date/Time: 12/12/2024 8:16 AM Performed by: Julio Rodriguez MD Authorized by: Natalie Guzman MD Rate: ECG rate: 72 ECG rate assessment: normal Rhythm: Rhythm: sinus rhythm Ectopy: Ectopy: none QRS: QRS axis: Normal QRS intervals: Normal Conduction: Conduction: normal ST segments: ST segments: Normal T waves: T waves: normal Previous ECG: Previous ECG: Unavailable Interpretation: Interpretation: normal Recommended Follow-up: Recommended follow up: further workup in the ED Procedure Note Julio Rodriguez MD - 12/12/2024 8:16 AM CST Procedure ECG 12 lead Date/Time: 12/12/2024 8:16 AM Performed by: Julio Rodriguez MD Authorized by: Natalie Guzman MD Rate: ECG rate: 72 ECG rate assessment: normal Rhythm: Rhythm: sinus rhythm Ectopy: Ectopy: none QRS: QRS axis: Normal QRS intervals: Normal Conduction: Conduction: normal ST segments: ST segments: Normal T waves: T waves: normal Previous ECG: Previous ECG: Unavailable Interpretation: Interpretation: normal Recommended Follow-up: Recommended follow up: further workup in the ED Julio Rodriguez MD 12/12/24 0816 Julio Rodriguez MD ECG ORDERABLES Final Result [facility] documented in this encounter Visit Diagnoses Diagnosis Shortness of breath- Primary History of lung cancer Personal history of malignant neoplasm of bronchus and lung Pneumonia due to infectious organism, unspecified laterality, unspecified part of lung documented in this encounter Administered Medications Inactive Administered Medications - up to 3 most recent administrations Medication Order MAR Action Action Date Dose Rate Site cefTRIAXone (ROCEPHIN) 1,000 mg/10 mL in sterile water (premix) 1,000 mg 1,000 mg, intravenous, at 120 mL/hr, Administer over 5 Minutes, Once, On Evette 12/12/24 at 1306, For 1 dose, Indications: Pneumonia, Community AcquiredIndications:Pneum onia, Community Acquired Given 12/12/2024 1:15 PM MANUFACTURING OPERATOR 1,000 mg 120 mL/hr doxycycline (VIBRAMYCIN) tablet/capsule 100 mg 100 mg, oral, Once, On Evette 12/12/24 at 1306, For 1 dose, Give 2 hrs before or 2 hrs after MVI, antacids, or other products containing sucralfate, magnesium, aluminum, iron, or zinc. May be taken without regard to meals., Indications: Pneumonia, Community AcquiredIndications:Pneum onia, Community Acquired Given 12/12/2024 1:15 PM MANUFACTURING OPERATOR 100 mg ioversoL (OPTIRAY 350) syringe 75 mL 75 mL, intravenous, Once in imaging, contrast, Starting on Evette 12/12/24 at 1048, For 1 dose Contrast Given 12/12/2024 10:56 AM MANUFACTURING OPERATOR 70 mL documented in this encounter Discontinued Medications Medication Sig Discontinue Reason Start Date End Da te cefdinir (OMNICEF) 300 mg capsule TAKE 1 CAPSULE BY MOUTH EVERY 12 HOURS FOR 7 DAYS Duplicate order 09/15/2024 12/12/2024 doxycycline 100 mg tablet TAKE 1 TABLET BY MOUTH TWICE A DAY FOR 7 DAYS Duplicate order 09/15/2024 12/12/2024 documented as of this encounter Active and Recently Administered Medications Times are shown in MANUFACTURING OPERATOR. Scheduled Medication Order 12/10/2024 12/11/2024 12/12/2024 cefTRIAXone (ROCEPHIN) 1,000 mg/10 mL in sterile water (premix) 1,000 mg (COMPLETED) 1,000 mg, intravenous, at 120 mL/hr, Administer over 5 Minutes, Once, On Evette 12/12/24 at 1306, For 1 dose, Indications: Pneumonia, Community Acquired 1315 (Given - Provid er: Anu Taylor) doxycycline (VIBRAMYCIN) tablet/capsule 100 mg (COMPLETED) 100 mg, oral, Once, On Evette 12/12/24 at 1306, For 1 dose, Give 2 hrs before or 2 hrs after MVI, antacids, or other products containing sucralfate, magnesium, aluminum, iron, or zinc. May be taken without regard to meals., Indications: Pneumonia, Community Acquired 1315 (Given - Provid er: Anu GOmega Taylor) PRN Medication Order 12/10/2024 12/11/2024 12/12/2024 ioversoL (OPTIRAY 350) syringe 75 mL (COMPLETED) 75 mL, intravenous, Once in imaging, contrast, Starting on Evette 12/12/24 at 1048, For 1 dose 1056 (Contrast Given - Provider: Cheyanne Wiley, RT) documented in this encounter Orders Nursing Count Last Ordered Date First Orde red Date CAPNOGRAPHY MONITORING 1 12/12/2024 CONTINUOUS PULSE OXIMETRY 1 12/12/2024 IV Count Last Ordered Date First Orde red Date SALINE LOCK IV 1 12/12/2024 documented in this encounter Care Teams Sql Server Bi Developer Relationship Specialty Start Date End Date Matthew Mccabe MD [address] [place] [address] PCP - General Family Medicine 05/13/24 Stan Meza MD [address] [facility] IM MEDICAL ONCOLOGY, [address] [place] [address] Medical Oncologist/Information Coder Medical Oncology 06/28/24 documented as of this encounter
--- OUTSIDE RECORDS SUMMARY | 2024-12-12 20:05 | XMS_ITS | Encounter Summary ---
Author Organization [facility] Address [address] [place] [address] Phone Care Team Providers Care Director Of Hemophilia Name Role Phone Matthew Mccabe MD Primary Care Prov ider Stan Meza MD Unavailable [phone] Encounter Details Date Type Department Care Team (Late st Contact Info) Description 12/12/[address] [facility] Oncology [address] 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) Expected: 12/26/2024, Expires: 12/26/2025 Comprehensive metabolic panel Lab STAT 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) Expected: 12/26/2024, Expires: 12/26/2025 documented as of this encounter Visit Diagnoses Diagnosis Hypokalemia- Primary Hypopotassemia 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) documented in this encounter Orders Appointment Requests Count Last Ordered Date Fi rst Ordered Date ONCBCN CLINIC APPOINTMENT REQUEST 1 025 ONCBCN LAB APPOINTMENT 2 12/12/2024 ONCBCN RETURN CHEMO 1.5HRS 1 12/12/2024 ONCBCN RETURN CHEMO 3HRS 1 12/12/2024 documented in this encounter Care Teams Director Of Hemophilia Relationship Specialty Start Date End Date Matthew Mccabe MD [address] [place] [address] PCP - General Family Medicine 05/13/24 Stan Meza MD [address] [facility] IM MEDICAL ONCOLOGY, [address], [address], [address] [place] [address] Medical Oncologist/Inspection Clerk Medical Oncology 06/28/24 documented as of this encounter
--- OUTSIDE RECORDS SUMMARY | 2024-12-12 20:05 | XMS_ITS | Encounter Summary ---
Author Organization [facility] Address [address] [place] [address] Care Team Providers Care Etched Circuit Processor Name Role Phone Monica Tellez CONTACT CENTER ENGINEER-MACHINING ENGINEER Primary Care Provi cristobal Ian Pollock MD Primary Care Provider [phone] Ian Pollock MD Primary Care Provider [phone] Ian Pollock MD Primary Care Provider [phone] Ian Pollock MD Primary Care Provider [phone] Ian Pollock MD Primary Care Provider [phone] Katina Casiano DO Unavailable [phone] Xavi ACOSTA MD, Fred R Primary Care Provider + Katina Casiano DO Unavailable Tracey Ang PA Unavailable [phone] Belkis Angel CONTACT CENTER ENGINEER-MACHINING ENGINEER Primary Care Provider + Natalie Baum Primary Care Provider [phone] Reason for Visit * Reason Onset Date Comments Forms 07/12/2019 [employer] [employer] transportation Encounter Details Date Type Department Care Team (Late st Contact Info) Description 07/12/2019 Telephone [facility] General Internal Medicine [address] [address] Monica Tellez APRN-MACHINING ENGINEER [address] [place] [id number] Forms ([employer]-medicare transportation) Social History Tobacco Use Types Packs/Day [...] on forms for transportation. Please advise. CB [phone] * Telephone Encounter - Shari Silvestre, RN - 07/12/2019 1:11 PM CDT [facility] transportation form on your shelf. * Telephone Encounter - Hawa Allen - 07/12/2019 9:34 AM CDT Pt calling in to inform office that paperwork is on it's way from [place] [employer] concerning Medicare rides so pt can get transportation to and from [facility] appts. CB# [phone] Routed to [facility] Nurse Communication for further review documented in this encounter Plan of Treatment Not on file documented as of this encounter Visit Diagnoses Not on filedocumented in this encounter Care Teams Etched Circuit Processor Relationship Specialty Start Date End Date Monica Tellez CONTACT CENTER ENGINEER-MACHINING ENGINEER PCP - General 07/03/19 11/13/19 Ian Pollock MD PCP - General 11/14/19 12/12/19 Ian Pollock MD PCP - General 12/13/19 05/25/20 Ian Pollock MD PCP - General 05/26/20 06/15/20 Ian Pollock MD [address] [facility] [address] [facility] [address] DIV OF [facility] [place] [address] PCP - General 07/31/20 08/20/20 Ian Pollock MD [address] DIV OF [facility] [place] [address] PCP - General 08/21/20 05/29/23 Jameel Hurley III, MD [address] DIV OF [facility] [place] [address] PCP - General Internal Medicine 06/05/23 08/28/23 Belkis Angel, CONTACT CENTER ENGINEER-MACHINING ENGINEER [address] [facility] 2nd [place] [address] PCP - General Nurse Practitioner 08/29/23 05/05/24 Natalie Baum [address] [place] [address] PCP - General 05/06/24 Katina Casiano DO [address] [facility] [address] DIV OF GEN INTERNAL MEDICINE [place], [place] Resident - PCP Internal Medicine 08/10/22 05/29/23 Katnia Casiano DO [address] [facility] [address] DIV OF GEN INTERNAL MEDICINE [place], [place] Hospitalist 06/05/23 Tracey Ang PA [address] [facility] [address] [place] [address] Physician Bowling Ball Marker 08/15/23 documented as of this encounter
--- OUTSIDE RECORDS SUMMARY | 2024-12-12 20:05 | XMS_ITS | Encounter Summary ---
Author Organization [facility] Address [address] [facility] [place] [address] Care Team Providers Care Medical Record Technician Name Role Phone Ian Pollock MD Primary Care Provider [phone] Katina Casiano DO Unavailable [phone] Xavi ACOSTA MD, Jameel Gaviria Primary Care Provider + Katina Casiano DO Unavailable [phone] Tracey Ang PA Unavailable [phone] Belkis Angel HOTEL MANAGER-FRAME STRAIGHTENER Primary Care Provider + Natalie Baum Primary Care Provider [phone] Encounter Details Date Type Department Care Team (Late st Contact Info) Description 02/18/2022 Telephone [facility] Pulmonary, Critical Care and Sleep Medicine [address] [facility] [place] [id number] Agnieszka Haas MD [address] [place] [address] Social History Tobacco Use Types Packs/Day Years [...] review with him. Patient Call Back number: [phone] documented in this encounter Plan of Treatment [...] filedocumented in this encounter Care Teams Medical Record Technician Relationship Specialty Start Date End Date Ian Pollock MD [address] DIV OF [facility] [place] [address] PCP - General 08/21/20 05/29/23 Jameel Hurley III, MD [address] DIV OF [facility] [place] [address] PCP - General Internal Medicine 06/05/23 08/28/23 Belkis Angel, HOTEL MANAGER-FRAME STRAIGHTENER [address] [facility] 2nd [place] [address] PCP - General Nurse Practitioner 08/29/23 05/05/24 Natalie Baum [address] [place] [address] PCP - General 05/06/24 Katina Casiano DO [address] [facility] [address] DIV OF GEN INTERNAL MEDICINE [place], [place] Resident - PCP Internal Medicine 08/10/22 05/29/23 Katina Casiano DO [address] [facility] 2[address] DIV OF GEN INTERNAL MEDICINE [place], [place] Hospitalist 06/05/23 Tracey Ang PA [address] [facility] [address] [place] [address] Physician Student Career Development Specialist 08/15/23 documented as of this encounter
--- OUTSIDE RECORDS SUMMARY | 2024-12-12 20:05 | XMS_ITS | Referral Summary ---
Author Organization [facility] Address [address] [place] [address] Care Team Providers Care Inspector [employer] Name Role Phone Matthew Mccabe MD Primary Care Prov ider Stan Meza MD Unavailable [phone] Encounters Date Type Department Care Team Description 12/12/2024 Orders Only [facility] [address] [place] [address] [phone] Sasha Hernandes RN Hypokalemia (Primary Dx); Primary cancer of left lower lobe of lung (HCC) 12/12/2024 8:08 AM HEATSET WINDER OPERATOR - 12/12/2024 1:30 PM [facility] Emergency [facility] Emergency Department [address] [place] [address] Julio Rodriguez MD Shortness of breath (Primary Dx); History of lung cancer; Pneumonia due to infectious organism, unspecified laterality, unspecified part of lung Discharge Disposition: Discharge to home or self care 12/10/2024 Orders Only [facility] [address] [place] [address] [phone] Sasha Hernandes RN Primary cancer of left lower lobe of lung (HCC) (Primary Dx); Metastasis to bone (CMS/HCC) (HCC) 12/09/2024 Documentation [facility] [address] [place] [phone] Sarah Brunner, MANAGER RFID 12/05/2024 Social Work [facility] [address] [place] [address] Floor 5 [place] [address] Sarah Brunner, MANAGER RFID 12/05/2024 Telephone [facility] Nutrition Counseling 1 [place] [address] Dagmar Pickard, LARRY 12/05/2024 8:30 AM HEATSET WINDER OPERATOR Lab [facility] - Lab Collection [facility] Floor 5 [place] [address] Primary cancer of left lower lobe of lung (HCC); Hypokalemia 12/05/2024 10:30 AM HEATSET WINDER OPERATOR Infusion [facility] - Infusion [address] [place] [address] Floor 6 [place] [address] Primary cancer of left lower lobe of lung (HCC) (Primary Dx); Hypokalemia 12/05/2024 9:20 AM HEATSET WINDER OPERATOR Office Visit [facility] [address] [place] [address] Floor 5 [place] [address] Shari Quintana NP Primary cancer of left lower lobe of lung (HCC) (Primary Dx); Hypokalemia 11/29/2024 Telephone [facility] [address] [place] [address] 5 [place] [address] Sasha Hernandes RN 11/28/2024 Telephone [facility] [address] [place] [address] 5 [place] [phone] Sasha Hernandes RN 11/28/2024 Orders Only [facility] [address] [place] [address] Floor 5 [place] [address] Sasha Hernandes RN Primary cancer of left lower lobe of lung (HCC) (Primary Dx); Hypokalemia 11/27/2024 Orders Only [facility] [address] [place] [address] Floor 5 [place] [address] Sasha Hernandes RN Primary cancer of left lower lobe of lung (HCC) (Primary Dx) 11/25/2024 Social Work [facility] [address] [place] [address] 5 [place] [address] Sarah Brunner, [facility] 11/14/2024 Orders Only [facility] [address] [place] [phone] Sasha Hernandes RN 11/14/2024 Orders Only [facility] [address] [place] [phone] Sasha Hernandes RN Hypokalemia (Primary Dx) 11/14/2024 8:00 AM HEATSET WINDER OPERATOR - 11/14/2024 11:59 PM [facility] Hospital [facility] [address] [place] [phone] Stan Meza MD Hypokalemia (Primary Dx); Primary cancer of left lower lobe of lung (HCC) Discharge Disposition: Discharge to home or self care 11/11/2024 Social Work [facility] [address] [place] [phone] Sarah Brunner, [facility] 11/11/2024 Documentation [facility] Radiation Oncology [address] [place] [address] [place] [address] Delmi Saxena, [facility] 11/11/2024 Telephone [facility] Radiation Oncology [address] [place] [address] [place] [address] Jeffrey Ham MD 11/11/2024 Orders Only [facility] [address] [place] [phone] Sasha Hernandes RN Metastasis to bone (CMS/HCC) (HCC) (Primary Dx); Primary cancer of left lower lobe of lung (HCC) 11/07/2024 8:00 AM HEATSET WINDER OPERATOR Lab [facility] - Lab Collection [address] [place] [address] Primary cancer of left lower lobe of lung (HCC); Metastasis to bone (CMS/HCC) (HCC) 11/07/2024 10:30 AM HEATSET WINDER OPERATOR Infusion [facility] - Infusion [address] [place] [address] Floor 5 [place] [address] Primary cancer of left lower lobe of lung (HCC) (Primary Dx) 11/07/2024 8:15 AM HEATSET WINDER OPERATOR Lab [facility] Lab [address] [place] [address] 5 [place] [address] Primary cancer of left lower lobe of lung (HCC) 11/07/2024 9:20 AM HEATSET WINDER OPERATOR Office Visit [facility] [address] [place] [address] 5 [place] [phone] Stan Meza MD Primary cancer of left lower lobe of lung (HCC) (Primary Dx); Metastasis to bone (CMS/HCC) (HCC) 11/06/2024 Orders Only [facility] [address] [place] [phone] Sasha Hernandes RN Primary cancer of left lower lobe of lung (HCC) (Primary Dx); Metastasis to bone (CMS/HCC) (HCC) 11/04/2024 Social Work [facility] [address] [place] [phone] Sarah Brunner, [facility] 10/29/2024 Social Work [facility] [address] [place] [phone] Carissa Long, MANAGER RFID 10/29/2024 Telephone [facility] [address] [place] [phone] Kelly Montes [facility] 10/28/2024 Telephone [facility] [address] [place] [phone] Maddy Freire RN 10/25/2024 Telephone [facility] [address] [place] [phone] Sasha Hernandes RN 10/25/2024 2:15 PM HEATSET WINDER OPERATOR - 10/25/2024 11:59 PM HEATSET WINDER OPERATOR [facility] Rad[facility] [address] [place] [address] Diagnosis unknown Discharge Disposition: Discharge to home or self care 10/24/2024 Telephone [facility] Nutrition [facility]ing 1 [place] [address] Dagmar Pickard, RD 10/24/2024 Documentation [facility] Floor 8 [place] [address] Olimpia Parr, A 10/18/2024 Documentation [facility] [address] [place] [address] Floor 5 [place] [address] Sarah Brunner, MANAGER RFID 10/17/2024 Telephone [facility]ing 1 [place] [address] Dagmar Pickard, RD 10/17/2024 Orders Only [facility] Floor 5 [place] [address] Pool Hong, [facility] 10/15/2024 Documentation [facility] Hospice - [address] [place] [phone] Gayatri Garza, RN 10/14/2024 Social Work [facility] Floor 5 [place] [address] Sarah Brunner, MANAGER RFID 10/10/2024 Telephone [facility] Outpatient Health - Palliative Care [address] [facility] [place] [address] Mariah Altamirano, RN 10/03/[address] [facility] Advanced Medicine ([facility]) - [facility] [address] [facility] Advanced Medicine 11th [place] [address] [place] [address] Alexsandra Augustine MS 10/03/2024 7:30 AM HEATSET WINDER OPERATOR Lab [facility] [place] - Lab Collection [address] [facility] Floor 5 [place] [address] Primary cancer of left lower lobe of lung (HCC) 10/03/2024 8:30 AM HEATSET WINDER OPERATOR Infusion [facility] - Infusion [address] [facility] Floor 5 [place] [address] Primary cancer of left lower lobe of lung (HCC) (Primary Dx) 09/30/2024 Social Work [facility] [address] [place] [address] Floor 5 [place] [address] Sarah Brunner, MANAGER RFID 09/25/2024 9:00 AM HEATSET WINDER OPERATOR Infusion [facility] - Infusion [address] [facility] Floor 5 [place] [address] Primary cancer of left lower lobe of lung (HCC) (Primary Dx) 09/25/2024 7:00 AM HEATSET WINDER OPERATOR Lab [facility] - Lab Collection [address] [place] [address] Floor 5 [place] [address] Primary cancer of left lower lobe of lung (HCC) 09/25/2024 8:00 AM HEATSET WINDER OPERATOR Office Visit [facility] [address] [place] [phone] Stan Meza MD Primary cancer of left lower lobe of lung (HCC) (Primary Dx) 09/23/[address] [facility] Palliative Care [address] [place] [phone] Gayatri Garza, ALYX 09/20/2024 Documentation [facility] [address] [place] [phone] Sarah Brunner, MANAGER RFID 09/17/2024 Social Work [facility] [address] [place] [phone] Sarah Brunner, MANAGER RFID 09/17/2024 Documentation [facility] Outpatient Health - Palliative Care [address] [place] [address] [place] [address] Mary Ellen Mckeon MD 09/17/2024 11:19 AM HEATSET WINDER OPERATOR - 09/17/2024 11:59 PM HEATSET WINDER OPERATOR Hospital Encounter [facility] Radiology [facility] [address] [place] [address] Discharge Disposition: Discharge to home or self care 09/16/2024 Orders Only [facility] [address] [facility] Floor 5 [place] [address] Sasha Hernandes RN Primary cancer of left lower lobe of lung (HCC) (Primary Dx) 09/11/2024 Telephone [facility] Outpatient Health - Palliative Care [address] [facility] [place] [address] Mariah Altamirano RN from Last 3 Months Allergies Active Allergy [...] a day 60 tablet 08/29/20 24 Active hydrOXYzine (VISTARIL) 100 mg capsule [...] unit tablet Take 1 tablet by mouth wrapper stripper before breakfast 30 tablet 3 09/25/20 24 [...] mouth daily 14 tablet 11/14/19 25 Active cefuroxime (CEFTIN) 500 mg tablet Take 1 tablet (500 mg total) by mouth 2 (two) times a day for 7 days 14 tablet 12/12/19 25 025 Active doxycycline (doxycycline hyclate) 100 mg capsule Take 1 tablet/capsule (100 mg total) by mouth 2 (two) times a day for 7 days 14 capsule 12/12/19 25 025 Active cefdinir (OMNICEF) 300 mg capsule TAKE 1 CAPSULE BY MOUTH EVERY 12 HOURS FOR 7 DAYS 09/15/20 24 025 Discontin ued(Dupli cecilia order) doxycycline 100 mg tablet TAKE 1 TABLET BY MOUTH TWICE A DAY FOR 7 DAYS 09/15/20 24 025 Discontin ued(Dupli cecilia order) Active Problems Problem Noted Date Diagnosed Date [...] Preservative Free, Intramuscular 09/29/2023,08/04/2020,07/11/2019,08/09,11/02/2015 Influenza, Unspecified 08/13/2020 [employer]) SARS-CoV-2 Vaccination 01/17/2021 Pneumococcal Conjugate Pcv20 [...] on file Legal Sex Male 6:04 PM HEATSET WINDER OPERATOR Gender Identity Not on file Sexual Orientation Not on file Last Filed Vital Signs Vital Sign Reading Time Taken Comments Blood Pressure 205/132 12/12/2024 1:00 PM HEATSET WINDER OPERATOR Pulse 79 12/12/2024 1:00 PM HEATSET WINDER OPERATOR Temperature 36.7 C (98.1 F) 12/12/2024 8:02 AM HEATSET WINDER OPERATOR Respiratory Rate 20 12/12/2024 1:00 PM HEATSET WINDER OPERATOR Oxygen Saturation 100% 12/12/2024 1:00 PM HEATSET WINDER OPERATOR Inhaled Oxygen Concentration - - Weight 83.9 kg (185 lb) 12/12/2024 8:02 AM HEATSET WINDER OPERATOR Height 175.3 cm (5' 9 ) 12/12/2024 8:02 AM HEATSET WINDER OPERATOR Body Mass Index 27.32 12/12/2024 8:02 AM HEATSET WINDER OPERATOR Plan of Treatment Not on file Procedures Procedure Name Priority Date/Time Associated Diagnosis Comments CT HEAD WO CONTRAST ED 12/12/2024 1 1:00 AM HEATSET WINDER OPERATOR CT CHEST ABDOMEN PELVIS W CONTRAST ED 12/12/2024 11:00 AM HEATSET WINDER OPERATOR TROPONIN I HIGH-SENSITIVITY 2-HOUR Timed 12/12/2024 10:33 AM HEATSET WINDER OPERATOR XR CHEST PA LATERAL 2 VIEWS ED 12/12/2024 10:28 AM HEATSET WINDER OPERATOR PRO B-TYPE NATRIURETIC PEPTIDE STAT 12/12/2024 9:35 AM HEATSET WINDER OPERATOR INFLUENZA A/B, RSV, AND COVID-19 PCR STAT 12/12/2024 9:35 AM HEATSET WINDER OPERATOR EGFR STAT 12/12/2024 8:45 AM HEATSET WINDER OPERATOR DIFFERENTIAL AUTO STAT 12/12/2024 8:4 5 AM HEATSET WINDER OPERATOR TROPONIN I HIGH-SENSITIVITY SERIES (BASELINE, 2HR, 4HR, 6HR) STAT 12/12/2024 8:45 AM HEATSET WINDER OPERATOR CBC WITH AUTO DIFFERENTIAL STAT 12/12/2024 8:45 AM HEATSET WINDER OPERATOR COMPREHENSIVE METABOLIC PANEL STAT 12/12/2024 8:45 AM HEATSET WINDER OPERATOR ECG 12-LEAD STAT 12/12/2024 8:16 AM HEATSET WINDER OPERATOR T3, FREE Routine 12/05/2024 9:34 AM HEATSET WINDER OPERATOR EGFR STAT 12/05/2024 9:34 AM HEATSET WINDER OPERATOR Primary cancer of left lower lobe of lung (HCC) T4, FREE Routine 12/05/2024 9:34 AM HEATSET WINDER OPERATOR Primary cancer of left lower lobe of lung (HCC) Hypokalemia DIFFERENTIAL AUTO STAT 12/05/2024 9:3 4 AM HEATSET WINDER OPERATOR Primary cancer of left lower lobe of lung (HCC) CBC WITH AUTO DIFFERENTIAL STAT 12/05/2024 9:34 AM HEATSET WINDER OPERATOR Primary cancer of left lower lobe of lung (HCC) COMPREHENSIVE METABOLIC PANEL STAT 12/05/2024 9:34 AM HEATSET WINDER OPERATOR Primary cancer of left lower lobe of lung (HCC) THYROID FUNCTION CASCADE Routine 12/05/2024 9:34 AM HEATSET WINDER OPERATOR Primary cancer of left lower lobe of lung (HCC) Hypokalemia EGFR STAT 11/14/2024 8:52 AM HEATSET WINDER OPERATOR Primary cancer of left lower lobe of lung (HCC) COMPREHENSIVE METABOLIC PANEL STAT 11/14/2024 8:52 AM HEATSET WINDER OPERATOR Primary cancer of left lower lobe of lung (HCC) DIFFERENTIAL AUTO STAT 11/14/2024 8:3 8 AM HEATSET WINDER OPERATOR Primary cancer of left lower lobe of lung (HCC) CBC WITH AUTO DIFFERENTIAL STAT 11/14/2024 8:38 AM HEATSET WINDER OPERATOR Primary cancer of left lower lobe of lung (HCC) EGFR STAT 11/07/2024 8:14 AM HEATSET WINDER OPERATOR Primary cancer of left lower lobe of lung (HCC) DIFFERENTIAL AUTO STAT 11/07/2024 8:1 4 AM HEATSET WINDER OPERATOR Primary cancer of left lower lobe of lung (HCC) MAGNESIUM STAT 11/07/2024 8:14 AM HEATSET WINDER OPERATOR Primary cancer of left lower lobe of lung (HCC) Metastasis to bone (CMS/HCC) (HCC) PHOSPHORUS STAT 11/07/2024 8:14 AM HEATSET WINDER OPERATOR Primary cancer of left lower lobe of lung (HCC) Metastasis to bone (CMS/HCC) (HCC) VITAMIN D 25 HYDROXY Routine 11/07/2024 8:14 AM HEATSET WINDER OPERATOR Primary cancer of left lower lobe of lung (HCC) Metastasis to bone (CMS/HCC) (HCC) CBC WITH AUTO DIFFERENTIAL STAT 11/07/2024 8:14 AM HEATSET WINDER OPERATOR Primary cancer of left lower lobe of lung (HCC) COMPREHENSIVE METABOLIC PANEL STAT 11/07/2024 8:14 AM HEATSET WINDER OPERATOR Primary cancer of left lower lobe of lung (HCC) CT BODY OUTSIDE CONSULT Routine 10/25/2024 2:15 PM HEATSET WINDER OPERATOR Diagnosis unknown DIFFERENTIAL AUTO Routine 10/03/2024 7:3 4 AM HEATSET WINDER OPERATOR Primary cancer of left lower lobe of lung (HCC) CBC WITH AUTO DIFFERENTIAL Routine 10/03/2024 7:34 AM HEATSET WINDER OPERATOR Primary cancer of left lower lobe of lung (HCC) EGFR STAT 09/25/2024 7:43 AM HEATSET WINDER OPERATOR Primary cancer of left lower lobe of lung (HCC) DIFFERENTIAL AUTO STAT 09/25/2024 7:4 3 AM HEATSET WINDER OPERATOR Primary cancer of left lower lobe of lung (HCC) CBC WITH AUTO DIFFERENTIAL STAT 09/25/2024 7:43 AM HEATSET WINDER OPERATOR Primary cancer of left lower lobe of lung (HCC) COMPREHENSIVE METABOLIC PANEL STAT 09/25/2024 7:43 AM HEATSET WINDER OPERATOR Primary cancer of left lower lobe of lung (HCC) CT BODY OUTSIDE REFERENCE Routine 09/17/2024 11:19 AM HEATSET WINDER OPERATOR from Last 3 Months Results * CT Chest Abdomen Pelvis W Contrast (12/12/2024 11:00 AM HEATSET WINDER OPERATOR) Anatomical Region Laterality Modality Body N/A Computed Tomogra phy 12/12/2024 11:3 3 AM HEATSET WINDER OPERATOR Impressions 12/12/2024 11:33 AM HEATSET WINDER OPERATOR 1. Similar burden of osseous metastasis, treated bilateral adrenal metastasis, and slightly smaller measurement of left hilar tumor. No evidence of progression. 2. Similar degree of mild severity peripheral lung damage/organized pneumonia. Electronically signed by: El Bee M.D. Narrative 12/12/2024 11:33 AM HEATSET WINDER OPERATOR EXAMINATION: Computed tomography of the chest, [...] pneumonia. Electronically signed by: El Bee M.D. Anderson Bahena MD IM CT PROCEDURES Final Result * CT Head WO Contrast (12/12/2024 11:00 AM HEATSET WINDER OPERATOR) Anatomical Region Laterality Modality Head and Neck N/A Computed Tomogra phy 12/12/2024 11:0 7 AM HEATSET WINDER OPERATOR Impressions 12/12/2024 11:07 AM HEATSET WINDER OPERATOR 1. No acute intracranial hemorrhage, mass effect, or large new area of edema.. Note is made that a contrast-enhanced examination would be more sensitive for the detection of intracranial metastases. Electronically signed by: Luciano Napier M.D. Narrative 12/12/2024 11:07 AM HEATSET WINDER OPERATOR EXAMINATION: CT head without contrast HISTORY: [...] by: Luciano Napier M.D. Anderson Bahena MD IMG CT PROCEDURES Final Result * Troponin I high-sensitivity 2-hour (12/12/2024 10:33 AM HEATSET WINDER OPERATOR) Trop I hs 6 <=35 ng/L Comment: Interpretive Data For further hscTnI resources including the diagnostic algorithm and an aid in interpretation, copy and paste this link: https://bjhlab.testcatalog.org/show/hsTrop-1 Current Interpretive Data last revised 2020. Trop I hs delta 1 ng/L [facility]MA [facility] Trop I hs interp Insignificant [facility] Blood 12/12/2024 10:3 3 AM HEATSET WINDER OPERATOR 12/12/2024 10:45 AM HEATSET WINDER OPERATOR Natalie Guzman MD LAB BLOOD ORDERABLES Yolette banda Result CHEMA [facility] Department [place] [address] * XR Chest PA Lateral 2 Views (12/12/2024 10:28 AM HEATSET WINDER OPERATOR) Anatomical Region Laterality Modality Body, Chest N/A Computed Radiogr aphy 12/12/2024 11:1 1 AM HEATSET WINDER OPERATOR Impressions 12/12/2024 11:11 AM HEATSET WINDER OPERATOR Comparison May 2024. Low lung volumes. [...] El Bee M.D. Narrative 12/12/2024 11:11 AM HEATSET WINDER OPERATOR EXAMINATION: 2 view chest radiograph Procedure [...] and COVID-19 PCR Nasopharyngeal (12/12/2024 9:35 AM HEATSET WINDER OPERATOR) COVID-19 RNA Negative Negative [facility] Influenza A RNA Negative Negative [facility] Influenza B RNA Negative Negative [facility] RSV RNA Negative Negative [facility] Comment: Interpretive data: Testing performed by [facility] ([phone]). This test is performed using the [employer] Xpert Xpress CoV-2/Flu/RSV plus assay. This is a multiplex, real-time reverse transcriptase PCR assay intended for the qualitative detection of nucleic acid from SARS-CoV-2, influenza A, influenza B, and respiratory syncytial virus. This assay has been cleared by the [place] Food and Drug administration. The performance characteristics have been verified by the [facility]. Results must be considered in the clinical context, and a negative result does not rule out infection. Interpretive Data last revised 2023 Nasopharyngeal 12/12/2024 9: 35 AM HEATSET WINDER OPERATOR 12/12/2024 9:46 AM HEATSET WINDER OPERATOR Narrative [facility] - 12/12/2024 10:27 AM HEATSET WINDER OPERATOR Is the Patient experiencing symptoms consistent with COVID?->No Anderson Bahena MD LAB MICROBIOLOGY - GENE RAL ORDERABLES Final Result [facility] Department [place] [address] [facility] * (ABNORMAL) Pro B-type natriuretic peptide (12/12/2024 9:35 AM HEATSET WINDER OPERATOR) NT-proBNP 695(H) <=300 pg/mL Comment: Interpretive [...] as advanced age. - References: 1. Traci AGUILAR et.al. Eur Heart J. 2006:27:330-337. 2. Chapito RW, Lawrence VILLEGAS. J. AM Ana Cardiol: Cardiovasc Imag. 2009;2: 216- 225. Interpretive Data Last Revised Date: 2018. Blood 12/12/2024 9:35 AM HEATSET WINDER OPERATOR 12/12/2024 9:48 AM HEATSET WINDER OPERATOR Anderson Bahena MD LAB BLOOD ORDERABLES Fi nal Result Performing Organization Address [facility] de Phone Number [facility] Department [place] [address] * Troponin I high-sensitivity series (baseline, 2hr, 4hr, 6hr) (12/12/2024 8:45 AM HEATSET WINDER OPERATOR) Trop I hs 5 <=35 ng/L Comment: Interpretive Data For further [facility] resources including the diagnostic algorithm and an aid in interpretation, copy and paste this link: https://bjhlab.testcatalog.org/show/hsTrop-1 Current Interpretive Data last revised 2020. Blood 12/12/2024 8:45 AM HEATSET WINDER OPERATOR 12/12/2024 8:55 AM HEATSET WINDER OPERATOR us Julio Rodriguez MD LAB BLOOD ORDERABLES F inal Result Performing Organization Address [facility] de Phone Number [facility] [place] [address] * eGFR (12/12/2024 8:45 AM HEATSET WINDER OPERATOR) eGFR >90 >=60 mL/min/1. 73 m2 [...] last reviewed 2021. Blood 12/12/2024 8:45 AM HEATSET WINDER OPERATOR 12/12/2024 8:55 AM HEATSET WINDER OPERATOR us Julio Rodriguez MD LAB BLOOD ORDERABLES F inal Result [facility] [place] [address] * (ABNORMAL) Differential, auto (12/12/2024 8:45 AM HEATSET WINDER OPERATOR) Neutrophil abs 3.7 1.5 - 6.5 K/cumm Imm gran abs 0.0 0.0 - 0.1 K/cumm [facility] Lymphocyte abs 0.7(L) 0.8 - 3.3 K/cumm [facility] Monocyte abs 0.4 0.2 - 0.8 K/cumm [facility] Eosinophil abs 0.3 0.0 - 0.5 K/cumm [facility] Basophil abs 0.0 0.0 - 0.1 K/cumm [facility] Neutrophil pct 72.0 % [facility] Comment: Interpretive Data Percent cell count reference ranges are not reported, since discordance with absolute values may lead to misinterpretation of CBC data. Current Interpretive Data was last revised on 2018. Imm gran pct 0.4 % [facility] Comment: Interpretive Data Percent cell count reference ranges are not reported, since discordance with absolute values may lead to misinterpretation of CBC data. Current Interpretive Data was last revised on 2018. Lymphocyte pct 12.7 % [facility] Comment: Interpretive Data Percent cell count reference ranges are not reported, since discordance with absolute values may lead to misinterpretation of CBC data. Current Interpretive Data was last revised on 2018. Monocyte pct 7.6 % [facility] Comment: Interpretive Data Percent cell count reference ranges are not reported, since discordance with absolute values may lead to misinterpretation of CBC data. Current Interpretive Data was last revised on 2018. Eosinophil pct 6.7 % [facility] Comment: Interpretive Data Percent cell count reference ranges are not reported, since discordance with absolute values may lead to misinterpretation of CBC data. Current Interpretive Data was last revised on 2018. Basophil pct 0.6 % [facility] Comment: Interpretive Data Percent cell count reference ranges are not reported, since discordance with absolute values may lead to misinterpretation of CBC data. Current Interpretive Data was last revised on 2018. Blood 12/12/2024 8:45 AM HEATSET WINDER OPERATOR 12/12/2024 8:55 AM HEATSET WINDER OPERATOR Julio Rodriguez MD LAB BLOOD ORDERABLES F inal Result [facility] [place] [address] * (ABNORMAL) CBC with auto differential (12/12/2024 8:45 AM HEATSET WINDER OPERATOR) WBC 5.1 3.8 - 9.9 K/cumm Hgb 10.3(L) 13.0 - 17.5 g/dL [facility] Hct 31.8(L) 38.9 - 50.3 % [facility] Plt 176 150 - 400 K/cumm [facility] MPV 8.9(L) 9.1 - 12.3 fL [facility] RBC 3.55(L) 4.30 - 5.80 M/cumm [facility] MCV 89.6 81.3 - 96.4 fL [facility] MCH 29.0 27.1 - 33.3 pg [facility] MCHC 32.4 32.3 - 35.7 g/dL [facility] RDW CV 19.2(H) 11.1 - 14.9 % [facility] RDW SD 63.2(H) 35.7 - 48.1 fL [facility] NRBC abs 0.00 0.00 - 0.01 K/cumm [facility] Blood 12/12/2024 8:45 AM HEATSET WINDER OPERATOR 12/12/2024 8:55 AM HEATSET WINDER OPERATOR Julio Rodriguez MD LAB BLOOD ORDERABLES F inal Result [facility] Department [place] [address] * (ABNORMAL) Comprehensive metabolic panel (12/12/2024 8:45 AM HEATSET WINDER OPERATOR) Sodium 133(L) 135 - 145 mmol/L Potassium, pl 4.0 3.3 - 4.9 mmol/L [facility] Chloride 97 97 - 110 mmol/L [facility] CO2 29 22 - 32 mmol/L [facility] Anion gap 7 2 - 15 mmol/L [facility] BUN 3(L) 6 - 25 mg/dL [facility] Creatinine 0.54(L) 0.80 - 1.30 mg/dL [facility] Glucose 101 70 - 199 mg/dL [facility] Comment: Interpretive Data Fasting glucose >/= [...] 2022. Calcium 9.4 8.5 - 10.3 mg/dL [facility] Bilirubin, total 0.4 0.1 - 1.2 mg/dL [facility] Protein, pl 6.6 6.5 - 8.5 g/dL [facility] Albumin 3.6 3.5 - 5.0 g/dL [facility] Alk phos 121 40 - 130 Units/L [facility] ALT 11 7 - 55 Units/L [facility] AST 19 10 - 50 Units/L [facility] Blood 12/12/2024 8:45 AM HEATSET WINDER OPERATOR 12/12/2024 8:55 AM HEATSET WINDER OPERATOR Julio Rodriguez MD LAB BLOOD ORDERABLES F inal Result [facility] [place] [address] * ECG 12-LEAD (12/12/2024 8:16 AM HEATSET WINDER OPERATOR) Narrative [facility] - 12/12/2024 8:16 AM HEATSET WINDER OPERATOR Julio Rodriguez MD 12/12/2024 8:16 AM [...] the ED Julio Rodriguez MD 12/12/24 0816 us Julio Rodriguez MD ECG ORDERABLES Final Result [facility] * eGFR (12/05/2024 9:34 AM HEATSET WINDER OPERATOR) eGFR >90 >=60 mL/min/1. 73 m2 [...] interpretive data was last reviewed 2021. Blood 12/05/2024 9:34 AM HEATSET WINDER OPERATOR 12/05/2024 9:39 AM HEATSET WINDER OPERATOR us Stan Meza MD LAB BLOOD ORDERABLES Yolette l Result Performing Organization Address City/[facility] Co de Phone Number INDERJITALDO MARTÍN [facility] Department [place] [address] * Differential, auto (12/05/2024 9:34 AM HEATSET WINDER OPERATOR) Pathologist [facility] Neutrophil abs 2.5 1.5 - 6.5 K/cumm Comment:Testing performed by : [facility], [address] [place] [phone] Lymphocyte abs 0.8 0.8 - 3.3 K/cumm [facility] Comment:Testing performed by : [facility], [address] [place] [phone] Monocyte abs 0.8 0.2 - 0.8 K/cumm [facility] Comment:Testing performed by : [facility], [address] [place] [phone] Eosinophil abs 0.2 0.0 - 0.5 K/cumm [facility] Comment:Testing performed by : [facility], [address] [place] [phone] Basophil abs 0.0 0.0 - 0.1 K/cumm [facility] Comment:Testing performed by : [facility], [address] [place] [phone] Neutrophil pct 58.7 % [facility] Comment: Interpretive Data Percent cell count reference ranges are not reported, since discordance with absolute values may lead to misinterpretation of CBC data. Current Interpretive Data was last revised on 2018. Testing performed by: [facility], [address] [place] [phone] Lymphocyte pct 17.5 % [facility] Comment: Interpretive Data Percent cell count reference ranges are not reported, since discordance with absolute values may lead to misinterpretation of CBC data. Current Interpretive Data was last revised on 2018. Testing performed by: [facility], [address] [place] [phone] Monocyte pct 19.3 % [facility] Comment: Interpretive Data Percent cell count reference ranges are not reported, since discordance with absolute values may lead to misinterpretation of CBC data. Current Interpretive Data was last revised on 2018. Testing performed by: [facility], [address] [place] [phone] Eosinophil pct 4.0 % [facility] Comment: Interpretive Data Percent cell count reference ranges are not reported, since discordance with absolute values may lead to misinterpretation of CBC data. Current Interpretive Data was last revised on 2018. Testing performed by: [facility], [address] [place] [phone] Basophil pct 0.5 % [facility] Comment: Interpretive Data Percent cell count reference ranges are not reported, since discordance with absolute values may lead to misinterpretation of CBC data. Current Interpretive Data was last revised on 2018. Testing performed by: [facility], [address] [place] [phone] Blood 12/05/2024 9:34 AM HEATSET WINDER OPERATOR 12/05/2024 9:39 AM HEATSET WINDER OPERATOR Stan Meza MD LAB BLOOD ORDERABLES Yolette l Result Performing Organization Address City/[facility] Co de Phone Number [facility] [place] [address] * (ABNORMAL) Thyroid Function Vestal (12/05/2024 9:34 AM HEATSET WINDER OPERATOR) TSH 0.24(L) 0.30 - 4.20 mcIUnit/mL Blood 12/05/2024 9:34 AM HEATSET WINDER OPERATOR 12/05/2024 9:39 AM HEATSET WINDER OPERATOR Stan Meza MD LAB BLOOD ORDERABLES Yolette l Result Performing Organization Address [facility] de Phone Number [facility] Department [place] [address] * (ABNORMAL) CBC with auto differential (12/05/2024 9:34 AM HEATSET WINDER OPERATOR) WBC 4.3 3.8 - 9.9 K/cumm Comment:Testing performed by : [facility], [address] [place] [phone] Hgb 10.0(L) 13.0 - 17.5 g/dL [facility] Comment:Testing performed by : [facility], [address] [place] [phone] Hct 31.1(L) 38.9 - 50.3 % [facility] Comment:Testing performed by : [facility], [address] [place] [phone] Plt 124(L) 150 - 400 K/cumm [facility] Comment:Testing performed by : [facility], [address] [place], [place] [phone] MPV 7.4 6.8 - 10.4 fL [facility] Comment:Testing performed by : [facility], [address] [place] [address] RBC 3.43(L) 4.30 - 5.80 M/cumm [facility] Comment:Testing performed by : [facility], [address] [place], [place] [phone] MCV 90.7 81.3 - 96.4 fL [facility] Comment:Testing performed by : [facility], [address] [place], [place] [phone] MCH 29.1 27.1 - 33.3 pg [facility] Comment:Testing performed by : [facility], [address] [place], [place] [phone] MCHC 32.1(L) 32.3 - 35.7 g/dL [facility] Comment:Testing performed by : [facility], [address] [place] [address] RDW CV 18.8(H) 11.1 - 14.9 % [facility] Comment:Testing performed by : [facility], [address] [place] [address] NRBC abs 0.00 0.00 - 0.01 K/cumm [facility] Comment:Testing performed by : [facility], [address] [place] [address] Blood 12/05/2024 9:34 AM HEATSET WINDER OPERATOR 12/05/2024 9:39 AM HEATSET WINDER OPERATOR us Stan Meza MD LAB BLOOD ORDERABLES Yolette banda Result [facility] [place] [address] * T3, free (12/05/2024 9:34 AM HEATSET WINDER OPERATOR) Free T3 2.7 2.0 - 4.4 pg/mL Blood 12/05/2024 9:34 AM HEATSET WINDER OPERATOR 12/05/2024 9:39 AM HEATSET WINDER OPERATOR Narrative [facility] - 12/05/2024 11:06 AM HEATSET WINDER OPERATOR This test was reflexed from a T4 result. Stan Meza MD LAB BLOOD ORDERABLES Yolette l Result Performing Organization Address [facility] Co de Phone Number [facility] [place] [address] * T4, free (12/05/2024 9:34 AM HEATSET WINDER OPERATOR) [facility] Free T4 1.26 0.90 - 1.70 ng/dL Blood 12/05/2024 9:34 AM HEATSET WINDER OPERATOR 12/05/2024 9:39 AM HEATSET WINDER OPERATOR Narrative [facility] - 12/05/2024 10:41 AM HEATSET WINDER OPERATOR This test was reflexed from a TSH result. Stan Meza MD LAB BLOOD ORDERABLES Yolette l Result Performing Organization Address [facility] de Phone Number [facility] [place] [address] * (ABNORMAL) Comprehensive metabolic panel (12/05/2024 9:34 AM HEATSET WINDER OPERATOR) [facility] Sodium 133(L) 135 - 145 mmol/L Potassium, pl 4.0 3.3 - 4.9 mmol/L [facility] Chloride 98 97 - 110 mmol/L [facility] CO2 28 22 - 32 mmol/L [facility] Anion gap 7 2 - 15 mmol/L [facility] BUN 5(L) 6 - 25 mg/dL [facility] Creatinine 0.65(L) 0.80 - 1.30 mg/dL [facility] Glucose 106 70 - 199 mg/dL [facility] Comment: Interpretive Data Fasting glucose >/= [...] Calcium 9.5 8.5 - 10.3 mg/dL [facility] Bilirubin, total 0.2 0.1 - 1.2 mg/dL [facility] Protein, pl 6.9 6.5 - 8.5 g/dL [facility] Albumin 3.8 3.5 - 5.0 g/dL [facility] Alk phos 127 40 - 130 Units/L [facility] ALT 7 7 - 55 Units/L [facility] AST 17 10 - 50 Units/L [facility] Blood 12/05/2024 9:34 AM HEATSET WINDER OPERATOR 12/05/2024 9:39 AM HEATSET WINDER OPERATOR us Stan Meza MD LAB BLOOD ORDERABLES Yolette banda Result [facility] Department [place] [address] * eGFR (11/14/2024 8:52 AM HEATSET WINDER OPERATOR) eGFR >90 >=60 mL/min/1. 73 m2 [...] last reviewed 2021. Blood 11/14/2024 8:52 AM HEATSET WINDER OPERATOR 11/14/2024 8:59 AM HEATSET WINDER OPERATOR us Stan Meza MD LAB BLOOD ORDERABLES Yolette banda Result [facility] Department [place] [address] * (ABNORMAL) Comprehensive metabolic panel (11/14/2024 8:52 AM HEATSET WINDER OPERATOR) Sodium 139 135 - 145 mmol/L Potassium, pl 3.1(L) 3.3 - 4.9 mmol/L [facility] Chloride 101 97 - 110 mmol/L [facility] CO2 31 22 - 32 mmol/L [facility] Anion gap 7 2 - 15 mmol/L [facility] BUN 4(L) 6 - 25 mg/dL [facility] Creatinine 0.64(L) 0.80 - 1.30 mg/dL [facility] Glucose 113 70 - 199 mg/dL [facility] Comment: Interpretive Data Fasting glucose >/= [...] classification and Diagnosis of Diabetes Diabetes Care 2022; 46: S19-S40. Current interpretive data was last revised 2022. Calcium 9.0 8.5 - 10.3 mg/dL [facility] Bilirubin, total 0.3 0.1 - 1.2 mg/dL [facility] Protein, pl 6.9 6.5 - 8.5 g/dL [facility] Albumin 3.9 3.5 - 5.0 g/dL [facility] Alk phos 128 40 - 130 Units/L [facility] ALT 9 7 - 55 Units/L [facility] AST 16 10 - 50 Units/L [facility] Blood 11/14/2024 8:52 AM HEATSET WINDER OPERATOR 11/14/2024 8:59 AM HEATSET WINDER OPERATOR us Stan Meza MD LAB BLOOD ORDERABLES Yolette banda Result [facility] [place] [address] * (ABNORMAL) Differential, auto (11/14/2024 8:38 AM HEATSET WINDER OPERATOR) Neutrophil abs 2.4 1.5 - 6.5 K/cumm Imm gran abs 0.0 0.0 - 0.1 K/cumm [facility] Lymphocyte abs 0.6(L) 0.8 - 3.3 K/cumm [facility] Monocyte abs 0.2 0.2 - 0.8 K/cumm [facility] Eosinophil abs 0.1 0.0 - 0.5 K/cumm [facility] Basophil abs 0.1 0.0 - 0.1 K/cumm [facility] Neutrophil pct 70.0 % [facility] Comment: Interpretive Data Percent cell count reference ranges are not reported, since discordance with absolute values may lead to misinterpretation of CBC data. Current Interpretive Data was last revised on 2018. Imm gran pct 0.9 % [facility] Comment: Interpretive Data Percent cell count reference ranges are not reported, since discordance with absolute values may lead to misinterpretation of CBC data. Current Interpretive Data was last revised on 2018. Lymphocyte pct 18.5 % [facility] Comment: Interpretive Data Percent cell count reference ranges are not reported, since discordance with absolute values may lead to misinterpretation of CBC data. Current Interpretive Data was last revised on 2018. Monocyte pct 5.6 % [facility] Comment: Interpretive Data Percent cell count reference ranges are not reported, since discordance with absolute values may lead to misinterpretation of CBC data. Current Interpretive Data was last revised on 2018. Eosinophil pct 3.5 % [facility] Comment: Interpretive Data Percent cell count reference ranges are not reported, since discordance with absolute values may lead to misinterpretation of CBC data. Current Interpretive Data was last revised on 2018. Basophil pct 1.5 % [facility] Comment: Interpretive Data Percent cell count reference ranges are not reported, since discordance with absolute values may lead to misinterpretation of CBC data. Current Interpretive Data was last revised on 2018. Blood 11/14/2024 8:38 AM HEATSET WINDER OPERATOR 11/14/2024 8:59 AM HEATSET WINDER OPERATOR us Stan Meza MD LAB BLOOD ORDERABLES Yolette banda Result [facility] [place] [address] * (ABNORMAL) CBC with auto differential (11/14/2024 8:38 AM HEATSET WINDER OPERATOR) WBC 3.4(L) 3.8 - 9.9 K/cumm Hgb 9.3(L) 13.0 - 17.5 g/dL [facility] Hct 28.9(L) 38.9 - 50.3 % [facility] Plt 196 150 - 400 K/cumm [facility] MPV 10.5 9.1 - 12.3 fL [facility] RBC 3.34(L) 4.30 - 5.80 M/cumm [facility] MCV 86.5 81.3 - 96.4 fL [facility] MCH 27.8 27.1 - 33.3 pg [facility] MCHC 32.2(L) 32.3 - 35.7 g/dL [facility] RDW CV 18.5(H) 11.1 - 14.9 % [facility] RDW SD 59.2(H) 35.7 - 48.1 fL [facility] NRBC abs 0.00 0.00 - 0.01 K/cumm [facility] Blood 11/14/2024 8:38 AM HEATSET WINDER OPERATOR 11/14/2024 8:59 AM HEATSET WINDER OPERATOR Stan Meza MD LAB BLOOD ORDERABLES Yolette l Result Performing Organization Address City/[facility]/ZIP Co de Phone Number [facility] Department [place] [address] * eGFR (11/07/2024 8:14 AM HEATSET WINDER OPERATOR) Pathologist [facility] eGFR >90 >=60 mL/min/1. 73 m2 Comment: [...] last reviewed 2021. Blood 11/07/2024 8:14 AM HEATSET WINDER OPERATOR 11/07/2024 8:18 AM HEATSET WINDER OPERATOR Stan Meza MD LAB BLOOD ORDERABLES Yolette l Result Performing Organization Address City/[facility]/ZIP Co de Phone Number [facility] [place] [address] * Differential, auto (11/07/2024 8:14 AM HEATSET WINDER OPERATOR) Neutrophil abs 3.0 1.5 - 6.5 K/cumm Comment:Testing performed by : [facility], [address] [place] [address] [place] [phone] Lymphocyte abs 0.8 0.8 - 3.3 K/cumm [facility] Comment:Testing performed by : [facility], [address] [place] [phone] Monocyte abs 0.7 0.2 - 0.8 K/cumm [facility] Comment:Testing performed by : [facility], [address] [place], [place] [phone] Eosinophil abs 0.3 0.0 - 0.5 K/cumm [facility] Comment:Testing performed by : [facility], [address] [place] [phone] Basophil abs 0.1 0.0 - 0.1 K/cumm [facility] Comment:Testing performed by : [facility], [address] [place] [phone] Neutrophil pct 60.9 % [facility] Comment: Interpretive Data Percent cell count reference ranges are not reported, since discordance with absolute values may lead to misinterpretation of CBC data. Current Interpretive Data was last revised on 2018. Testing performed by: [facility], [address] [place] [phone] Lymphocyte pct 17.4 % [facility] Comment: Interpretive Data Percent cell count reference ranges are not reported, since discordance with absolute values may lead to misinterpretation of CBC data. Current Interpretive Data was last revised on 2018. Testing performed by: [facility], [address] [place] [phone] Monocyte pct 14.4 % [facility] Comment: Interpretive Data Percent cell count reference ranges are not reported, since discordance with absolute values may lead to misinterpretation of CBC data. Current Interpretive Data was last revised on 2018. Testing performed by: [facility], [address] [place] [phone] Eosinophil pct 6.2 % [facility] Comment: Interpretive Data Percent cell count reference ranges are not reported, since discordance with absolute values may lead to misinterpretation of CBC data. Current Interpretive Data was last revised on 2018. Testing performed by: [facility], [address] [place] [phone] Basophil pct 1.1 % [facility] Comment: Interpretive Data Percent cell count reference ranges are not reported, since discordance with absolute values may lead to misinterpretation of CBC data. Current Interpretive Data was last revised on 2018. Testing performed by: [facility], [address] [place] [phone] Blood 11/07/2024 8:14 AM HEATSET WINDER OPERATOR 11/07/2024 8:16 AM HEATSET WINDER OPERATOR us Stan Meza MD LAB BLOOD ORDERABLES Yolette banda Result [facility] [place] [address] * (ABNORMAL) CBC with auto differential (11/07/2024 8:14 AM HEATSET WINDER OPERATOR) WBC 4.9 3.8 - 9.9 K/cumm Comment:Testing performed by : [facility], [address] [place] [phone] Hgb 9.8(L) 13.0 - 17.5 g/dL [facility] Comment:Testing performed by : [facility], [address] [place] [phone] Hct 30.1(L) 38.9 - 50.3 % [facility] Comment:Testing performed by : [facility], [address] [place] [phone] Plt 232 150 - 400 K/cumm [facility] Comment:Testing performed by : [facility], [address] [place] [phone] MPV 6.8 6.8 - 10.4 fL [facility] Comment:Testing performed by : [facility], [address] [place] [address] RBC 3.47(L) 4.30 - 5.80 M/cumm [facility] Comment:Testing performed by : [facility], [address] [place], [place] [phone] MCV 86.6 81.3 - 96.4 fL [facility] Comment:Testing performed by : [facility], [address] [place], [place] [phone] MCH 28.3 27.1 - 33.3 pg [facility] Comment:Testing performed by : [facility], [address] [place] [phone] MCHC 32.6 32.3 - 35.7 g/dL [facility] Comment:Testing performed by : [facility], [address] [place] [phone] RDW CV 21.1(H) 11.1 - 14.9 % [facility] Comment:Testing performed by : [facility], [address] [place], [place] [phone] NRBC abs 0.00 0.00 - 0.01 K/cumm [facility] Comment:Testing performed by : [facility], [address] [place], [place] [phone] Blood 11/07/2024 8:14 AM HEATSET WINDER OPERATOR 11/07/2024 8:16 AM HEATSET WINDER OPERATOR Stan Meza MD LAB BLOOD ORDERABLES Yolette l Result Performing Organization Address [facility] Co de Phone Number [facility] [place] [address] * (ABNORMAL) Vitamin D 25 hydroxy (11/07/2024 8:14 AM HEATSET WINDER OPERATOR) Vitamin D 25-OH 23(L) 30 - 80 ng/mL Blood 11/07/2024 8:14 AM HEATSET WINDER OPERATOR 11/07/2024 8:18 AM HEATSET WINDER OPERATOR Stan Meza MD LAB BLOOD ORDERABLES Yolette l Result Performing Organization Address [facility] Co de Phone Number [facility] Department of Laboratories [place] [address] * Phosphorus (11/07/2024 8:14 AM HEATSET WINDER OPERATOR) [facility] Phosphorus, pl 3.4 2.3 - 4.5 mg/dL Blood 11/07/2024 8:14 AM HEATSET WINDER OPERATOR 11/07/2024 8:18 AM HEATSET WINDER OPERATOR Stan Meza MD LAB BLOOD ORDERAB[place] [address] * Magnesium (11/07/2024 8:14 AM HEATSET WINDER OPERATOR) [facility] Magnesium 1.7 1.4 - 2.5 mg/dL Blood 11/07/2024 8:14 AM HEATSET WINDER OPERATOR 11/07/2024 8:18 AM HEATSET WINDER OPERATOR Stan Meza MD LAB BLOOD ORDERABLES Yolette l Result Performing Organization Address City/[facility]/[place] [address] * (ABNORMAL) Comprehensive metabolic panel (11/07/2024 8:14 AM HEATSET WINDER OPERATOR) [facility] Sodium 138 135 - 145 mmol/L Potassium, pl 3.5 3.3 - 4.9 mmol/L [facility] Chloride 101 97 - 110 mmol/L [facility] CO2 28 22 - 32 mmol/L [facility] Anion gap 9 2 - 15 mmol/L [facility] BUN 4(L) 6 - 25 mg/dL [facility] Creatinine 0.66(L) 0.80 - 1.30 mg/dL [facility] Glucose 97 70 - 199 mg/dL [facility] Comment: Interpretive Data Fasting glucose >/= [...] 2022. Calcium 9.3 8.5 - 10.3 mg/dL [facility] Bilirubin, total 0.3 0.1 - 1.2 mg/dL [facility] Protein, pl 6.6 6.5 - 8.5 g/dL [facility] Albumin 3.6 3.5 - 5.0 g/dL [facility] Alk phos 123 40 - 130 Units/L [facility] ALT 7 7 - 55 Units/L [facility] AST 14 10 - 50 Units/L [facility] Blood 11/07/2024 8:14 AM HEATSET WINDER OPERATOR 11/07/2024 8:18 AM HEATSET WINDER OPERATOR us Stan Meza MD LAB BLOOD ORDERABLES Yolette l Result [facility] Department [place] [address] * CT Body Outside Consult (10/25/2024 2:15 PM HEATSET WINDER OPERATOR) Anatomical Region Laterality Modality Body N/A Computed Tomogra phy 10/27/2024 7:03 PM HEATSET WINDER OPERATOR Impressions 10/27/2024 7:03 PM HEATSET WINDER OPERATOR 1. Marked response to therapy in the [...] images may or may not represent the [place] source data set and thus may contain changes that may lower the accuracy of this second-opinion interpretation. Electronically signed by: Wally Garg M.D. Narrative 10/27/2024 7:03 PM HEATSET WINDER OPERATOR EXAMINATION: RADIOLOGY CONSULTATION ON OUTSIDE IMAGING STUDY [...] images may or may not represent the [place] source data set and thus may contain changes that may lower the accuracy of this second-opinion interpretation. Electronically signed by: Wally Garg M.D. Stan Meza MD IM CT PROCEDURES Final R esult * Differential, auto (10/03/2024 7:34 AM HEATSET WINDER OPERATOR) Neutrophil abs 2.5 1.5 - 6.5 K/cumm Comment:Testing performed by : [facility], [address] [place] [phone] Lymphocyte abs 0.8 0.8 - 3.3 K/cumm [facility] Comment:Testing performed by : [facility], [address] [place] [phone] Monocyte abs 0.4 0.2 - 0.8 K/cumm [facility] Comment:Testing performed by : [facility], [address] [place] [phone] Eosinophil abs 0.1 0.0 - 0.5 K/cumm [facility] Comment:Testing performed by : [facility], [address] [place] [phone] Basophil abs 0.0 0.0 - 0.1 K/cumm [facility] Comment:Testing performed by : [facility], [address] [place] [phone] Neutrophil pct 65.4 % [facility] Comment: Interpretive Data Percent cell count reference ranges are not reported, since discordance with absolute values may lead to misinterpretation of CBC data. Current Interpretive Data was last revised on 2018. Testing performed by: [facility], [address] [place] [phone] Lymphocyte pct 21.8 % [facility] Comment: Interpretive Data Percent cell count reference ranges are not reported, since discordance with absolute values may lead to misinterpretation of CBC data. Current Interpretive Data was last revised on 2018. Testing performed by: [facility], [address] [place] [phone] Monocyte pct 10.8 % [facility] Comment: Interpretive Data Percent cell count reference ranges are not reported, since discordance with absolute values may lead to misinterpretation of CBC data. Current Interpretive Data was last revised on 2018. Testing performed by: [facility], [address] [place] [phone] Eosinophil pct 1.8 % [facility] Comment: Interpretive Data Percent cell count reference ranges are not reported, since discordance with absolute values may lead to misinterpretation of CBC data. Current Interpretive Data was last revised on 2018. Testing performed by: [facility], [address] [place] [phone] Basophil pct 0.2 % [facility] Comment: Interpretive Data Percent cell count reference ranges are not reported, since discordance with absolute values may lead to misinterpretation of CBC data. Current Interpretive Data was last revised on 2018. Testing performed by: [facility], [address] [place] [address] Blood 10/03/2024 7:34 AM HEATSET WINDER OPERATOR 10/03/2024 7:37 AM HEATSET WINDER OPERATOR Stan Meza MD LAB BLOOD ORDERABLES Yolette veronika Result [facility] Department [place] [address] * (ABNORMAL) CBC with auto differential (10/03/2024 7:34 AM HEATSET WINDER OPERATOR) WBC 3.8 3.8 - 9.9 K/cumm Comment:Testing performed by : [facility], [address] [place] [address] Hgb 9.0(L) 13.0 - 17.5 g/dL [facility] Comment:Testing performed by : [facility], [address] [place] [address] Hct 27.9(L) 38.9 - 50.3 % [facility] Comment:Testing performed by : [facility], [address] [place] [address] Plt 252 150 - 400 K/cumm [facility] Comment:Testing performed by : [facility], [address] [place] [address] MPV 6.8 6.8 - 10.4 fL [facility] Comment:Testing performed by : [facility], [address] [place] [address] RBC 3.40(L) 4.30 - 5.80 M/cumm [facility] Comment:Testing performed by : [facility], [address] [place] [address] MCV 82.0 81.3 - 96.4 fL [facility] Comment:Testing performed by : [facility], [address] [place] [address] MCH 26.6(L) 27.1 - 33.3 pg [facility] Comment:Testing performed by : [facility], [address] [place] [address] MCHC 32.4 32.3 - 35.7 g/dL [facility] Comment:Testing performed by : [facility], [address] [place] [address] RDW CV 17.7(H) 11.1 - 14.9 % [facility] Comment:Testing performed by : [facility], [address] [place] [address] NRBC abs 0.00 0.00 - 0.01 K/cumm [facility] Comment:Testing performed by : [facility], [address] [place] [address] Blood 10/03/2024 7:34 AM HEATSET WINDER OPERATOR 10/03/2024 7:37 AM HEATSET WINDER OPERATOR us Stan Meza MD LAB BLOOD ORDERABLES Yolette banda Result [facility] Department [place] [address] * eGFR (09/25/2024 7:43 AM HEATSET WINDER OPERATOR) eGFR >90 >=60 mL/min/1. 73 m2 [...] last reviewed 2021. Blood 09/25/2024 7:43 AM HEATSET WINDER OPERATOR 09/25/2024 7:51 AM HEATSET WINDER OPERATOR us Stan Meza MD LAB BLOOD ORDERABLES Yolette veronika Result [facility] Department [place] [address] * (ABNORMAL) Differential, auto (09/25/2024 7:43 AM HEATSET WINDER OPERATOR) Neutrophil abs 4.1 1.5 - 6.5 K/cumm Comment:Testing performed by : [facility], [address] [place], [place] [phone] Lymphocyte abs 0.8 0.8 - 3.3 K/cumm [facility] Comment:Testing performed by : [facility], [address] [place] [phone] Monocyte abs 0.9(H) 0.2 - 0.8 K/cumm [facility] Comment:Testing performed by : [facility], [address] [place], [place] [phone] Eosinophil abs 0.1 0.0 - 0.5 K/cumm [facility] Comment:Testing performed by : [facility], [address] [place] [phone] Basophil abs 0.1 0.0 - 0.1 K/cumm [facility] Comment:Testing performed by : [facility], [address] [place] [phone] Neutrophil pct 69.0 % [facility] Comment: Interpretive Data Percent cell count reference ranges are not reported, since discordance with absolute values may lead to misinterpretation of CBC data. Current Interpretive Data was last revised on 2018. Testing performed by: [facility], [address] [place] [phone] Lymphocyte pct 13.4 % [facility] Comment: Interpretive Data Percent cell count reference ranges are not reported, since discordance with absolute values may lead to misinterpretation of CBC data. Current Interpretive Data was last revised on 2018. Testing performed by: [facility], [address] [place] [phone] Monocyte pct 15.3 % [facility] Comment: Interpretive Data Percent cell count reference ranges are not reported, since discordance with absolute values may lead to misinterpretation of CBC data. Current Interpretive Data was last revised on 2018. Testing performed by: [facility], [address] [place] [phone] Eosinophil pct 1.3 % [facility] Comment: Interpretive Data Percent cell count reference ranges are not reported, since discordance with absolute values may lead to misinterpretation of CBC data. Current Interpretive Data was last revised on 2018. Testing performed by: [facility], [address] [place] [phone] Basophil pct 1.0 % [facility] Comment: Interpretive Data Percent cell count reference ranges are not reported, since discordance with absolute values may lead to misinterpretation of CBC data. Current Interpretive Data was last revised on 2018. Testing performed by: [facility], [address] [place] [phone] Blood 09/25/2024 7:43 AM HEATSET WINDER OPERATOR 09/25/2024 7:48 AM HEATSET WINDER OPERATOR us Stan Meza MD LAB BLOOD ORDERABLES Yolette l Result [facility] Department [place] [address] * (ABNORMAL) CBC with auto differential (09/25/2024 7:43 AM HEATSET WINDER OPERATOR) WBC 5.9 3.8 - 9.9 K/cumm Comment:Testing performed by : [facility], [address] [place] [phone] Hgb 9.7(L) 13.0 - 17.5 g/dL [facility] Comment:Testing performed by : [facility], [address] [place] [address] Hct 30.5(L) 38.9 - 50.3 % [facility] Comment:Testing performed by : [facility], [address] [place] [address] Plt 350 150 - 400 K/cumm [facility] Comment:Testing performed by : [facility], [address] [place] [address] MPV 6.5(L) 6.8 - 10.4 fL [facility] Comment:Testing performed by : [facility], [address] [place] [address] RBC 3.72(L) 4.30 - 5.80 M/cumm [facility] Comment:Testing performed by : [facility], [address] [place] [address] MCV 82.1 81.3 - 96.4 fL [facility] Comment:Testing performed by : [facility], [address] [place] [address] MCH 26.1(L) 27.1 - 33.3 pg [facility] Comment:Testing performed by : [facility], [address] [place] [address] MCHC 31.8(L) 32.3 - 35.7 g/dL [facility] Comment:Testing performed by : [facility], [address] [place] [address] RDW CV 17.1(H) 11.1 - 14.9 % [facility] Comment:Testing performed by : [facility], [address] [place] [address] NRBC abs 0.00 0.00 - 0.01 K/cumm [facility] Comment:Testing performed by : [facility], [address] [place] [address] Blood 09/25/2024 7:43 AM HEATSET WINDER OPERATOR 09/25/2024 7:48 AM HEATSET WINDER OPERATOR us Stan Meza MD LAB BLOOD ORDERABLES Yolette banda Result [facility] Department [place] [address] * (ABNORMAL) Comprehensive metabolic panel (09/25/2024 7:43 AM HEATSET WINDER OPERATOR) Sodium 135 135 - 145 mmol/L Potassium, pl 4.2 3.3 - 4.9 mmol/L [facility] Chloride 98 97 - 110 mmol/L [facility] CO2 30 22 - 32 mmol/L [facility] Anion gap 7 2 - 15 mmol/L [facility] BUN 5(L) 6 - 25 mg/dL [facility] Creatinine 0.73(L) 0.80 - 1.30 mg/dL [facility] Glucose 99 70 - 199 mg/dL [facility] Comment: Interpretive Data Fasting glucose >/= [...] 2022. Calcium 9.3 8.5 - 10.3 mg/dL [facility] Bilirubin, total 0.2 0.1 - 1.2 mg/dL [facility] Protein, pl 6.6 6.5 - 8.5 g/dL [facility] Albumin 3.3(L) 3.5 - 5.0 g/dL [facility] Alk phos 172(H) 40 - 130 Units/L [facility] ALT 18 7 - 55 Units/L [facility] AST 17 10 - 50 Units/L [facility] Blood 09/25/2024 7:43 AM HEATSET WINDER OPERATOR 09/25/2024 7:51 AM HEATSET WINDER OPERATOR us Stan Meza MD LAB BLOOD ORDERABLES Yolette l Result Performing Organization Address City/[facility]/ZIP Co de Phone Number [facility] [place] [address] * CT Body Outside Reference (09/17/2024 11:19 AM HEATSET WINDER OPERATOR) Impressions [facility] - 09/17/2024 11:19 AM HEATSET WINDER OPERATOR These images are for Reference purposes only and have not been reviewed by [facility]. There will be no report generated by a [facility]ologist. Narrative [facility] - 09/17/2024 11:19 AM HEATSET WINDER OPERATOR EXAMINATION: Images For Reference Purposes Only us Stan Meza MD IMG CT PROCEDURES Final R esult Performing Organization Address City/[facility] Co de Phone Number [facility] from Last 3 Months Insurance [facility] Care Teams Inspector Aluminum Boat Relationship Specialty Start Date End Date Matthew Mccabe MD [address] [place] [address] PCP - General Family Medicine 05/13/24 Stan Meza MD [address] [facility], [address] [place] [address] Medical Oncologist/Sales Service Rep Medical Oncology 06/28/24
--- OUTSIDE RECORDS SUMMARY | 2024-12-12 20:05 | XMS_ITS ---
Author Organization [facility] Address [address] [place] [address] Care Team Providers Care Flight Service Specialist Name Role Phone Radha Joseph Primary Care Provider Medications Medication SIG (Take, Route, Frequency, Duration) Notes Start Date End Date Status hydrOXYzine Pamoate 25 MG 1 capsule Orally three times daily for 30 days As needed Active busPIRone HCl 10 MG 1 tablet Orally Twic e a day for 30 days Active Mirtazapine 7.5 MG 1 tablet at bedtime Orally Once a day for 30 days 11/11/2024 Active lamoTRIgine 100 MG 1 tablet Orally twic e a day for 30 days Active Ziprasidone HCl 80 MG TAKE 1 CAPSULE BY MOUTH WITH FOOD TWICE A DAY Orally Twice a day for 30 days Active Social History Sex Assigned At : Social History Observation Description Sex Assigned At Male Encounters Encounter Location Date Provider Diagnosis [facility] [address] [place] [address] 11/11/2024 Radha Joseph Anxiety F41.9 and Bipolar 1 disorder, depressed, moderate F31.32 Assessments Encounter Date Diagnosis (ICD Code) Assessment Notes Treatment Notes Treatment Clinical Notes Section Notes 11/11/2024 Anxiety (ICD-10 - F41.9) 11/11/2024 Bipolar 1 disorder, depressed, moderate (ICD-10 - F31.32) Plan Of Treatment Medication Medication Name Sig Start Date Stop Date Notes hydrOXYzine Pamoate 25 MG 1 capsule Oral ly three times daily for 30 days busPIRone HCl 10 MG 1 tablet Orally Twic e a day for 30 days Mirtazapine 7.5 MG 1 tablet at bedtime Orally Once a day for 30 days 11/11/2024 lamoTRIgine 100 MG 1 tablet Orally twic e a day for 30 days Ziprasidone HCl 80 MG TAKE 1 CAPSULE BY MOUTH WITH FOOD TWICE A DAY Orally Twice a day for 30 days Progress Notes * Josafat CALVO FDOB: 1 (64 yo M)Acc No.[id number]:11/11/2024 Patient: Josafat GARCIA :1960 A ge:64 Y S ex:Male Address:[address], [address], [address] * Refills Refill hydrOXYzine Pamoate Capsule, 25 MG, Orally, 90, 1 capsule, three times daily, 30 days, Refills=1 Refill busPIRone HCl Tablet, 10 MG, Orally, 60 Tablet, 1 tablet, Twice a day, 30 days, Refills=1 Refill lamoTRIgine Tablet, 100 MG, Orally, 60 Tablet, 1 tablet, twice a day, 30 days, Refills=1 Refill Ziprasidone HCl Capsule, 80 MG, Orally, 60, TAKE 1 CAPSULE BY MOUTH WITH FOOD TWICE A DAY, Twice a day, 30 days, Refills=1 Start Mirtazapine Tablet, 7.5 MG, Orally, 30 Tablet, 1 tablet at bedtime, Once a day, 30 days, Refills=0 * true * Date: Generated for Liudmila gray/Katey/August on: 0 12/12/2024 06:32 AM SMASH PIECER
--- OUTSIDE RECORDS SUMMARY | 2024-12-12 20:05 | XMS_ITS | Encounter Summary ---
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 MEDICAL ONCOLOGY, [address] [place] [address] Medical Oncologist/Director Of Early Childhood Medical Oncology 06/28/24 documented as of this encounter
--- OUTSIDE RECORDS SUMMARY | 2024-12-12 20:05 | XMS_ITS | Encounter Summary ---
Author Organization [facility] Address [address] [place] [address] Care Team Providers Care Railroad Conductor Name Role Phone Ian Pollock MD Primary Care Provider [phone] Katina Casiano DO Unavailable [phone] Xavi ACOSTA MD, Jameel Gaviria Primary Care Provider + Katina Casiano DO Unavailable [phone] Tracey Ang PA Unavailable [phone] Belkis Angel TRUCK SAFETY INSPECTOR-[employer]ER [employer] NET Primary Care Provider + Natalie Baum Primary Care Provider [phone] Reason for Visit * Reason Onset Date Comments Cardiac Rehab 02/23/2022 Encounter Details Date Type Department Care Team (Late st Contact Info) Description 02/23/2022 Telephone [facility] [address] [place] [address] Rama Lagos, recycling attendant Social History Tobacco Use Types Packs/Day Years [...] on filedocumented in this encounter Care Teams Railroad Conductor Relationship Specialty Start Date End Date Ian Pollock MD [address] DIV OF [facility] [place] [address] PCP - General 08/21/20 05/29/23 Jameel Hurley III, MD [address] DIV OF [facility] [place] [address] PCP - General Internal Medicine 06/05/23 08/28/23 Belkis Angel, TRUCK SAFETY INSPECTOR-[employer]ER [employer] NET [address] [facility] 2nd [place] [address] PCP - General Nurse Practitioner 08/29/23 05/05/24 Natalie Baum [address] [place] [address] PCP - General 05/06/24 Katina Casiano DO [address] [facility] [address] DIV OF [facility] [place], [place] Resident - PCP Internal Medicine 08/10/22 05/29/23 Katina Casiano DO [address] [facility] [address] DIV OF [facility] [place], [place] Hospitalist 06/05/23 Tracey Ang PA [address] [facility] [address] [place] [address] Physician Global Sales Manager 08/15/23 documented as of this encounter
--- OUTSIDE RECORDS SUMMARY | 2024-12-12 20:05 | XMS_ITS | Clinical Summary ---
Author Organization [facility] Address [address] [place] [address] Phone Care Team Providers Care Air Conditioning Unit Tester Name Role Phone SADIE JACK MD Unavailable [...] On 0 10:36AM By PAUL DAVIS-ANAYA ; [facility] Gabapentin 600 MG Oral Tablet 05/26/2020 Provider: PAUL MAJANO Diagnosis: Radiculopathy, l umbar region TAKE 1 TABLET BY MOUTH THREE TIMES DAILY. Last Documented On 0 2:54PM By PAUL NUNEZ ; [facility] Triamcinolone Acetonide 0.1% External Cream 10/07/2019 Provider: Diagnosis: Last Documented On 9 11:28AM By Faye MEJÍA ; [facility] Spironolactone 50 MG Oral Tablet 10/07/2019 Provider : Diagnosis: Last Documented On 9 11:27AM By Faye MEJÍA ; [facility] Omeprazole 40 MG Oral Capsule Delayed Release 10/07/20 Provider: Diagnosis: Last Documented On 9 11:27AM By Faye MEJÍA ; [facility] Ibuprofen 600 MG Oral Tablet 10/07/2019 Provider: Diagnosis: Last Documented On 9 11:27AM By Faye MEJÍA ; [facility] hydrOXYzine Pamoate 50 MG Oral Capsule 10/07/2019 Pr ovider: Diagnosis: Last Documented On 9 11:26AM By Faye MEJÍA ; [facility] Carvedilol 25 MG Oral Tablet 10/07/2019 Provider: Diagnosis: Last Documented On 9 11:26AM By Faey MEJÍA ; [facility] Medications Administered Includes: Administered Medications from this encounter No Administered Medications Recorded Results Includes: Results discussed during this encounter No Results Recorded For Specified Dates History of Present Illness Includes: History of Present Illness from this encounter No History of Present Illness Recorded Social History Description Last Updated Smoker 04/29/2020 Last Documented On 0 10:13AM ; [facility] Smoking status : Current everyday smoker 10/07/2019 Last Documented On 0 10:13AM ; [facility] Medical History Includes: Medical History addressed during [...] Active Last Documented On 0 8:29AM ; [facility] Lisinopril Allergy 10/07/2019 Active Last Documented On 0 8:29AM ; [facility] Encounters Encounter Provider Location Date Check-In Time Check-Out Time Diagnosis RX ISSUE/REFILL PAUL DAVIS-ANAYA 05/11/2020 10:13AM 11:59PM Insurance Includes: Active Insurance Policies Plan Name Member ID Group # Subscriber Relationship Effect jeannine Dates 1 - [facility] [id number] RYLEE GRAY Self Clinical Notes Includes: Clinical Notes from this encounter No Clinical Notes Recorded
--- OUTSIDE RECORDS SUMMARY | 2024-12-12 20:05 | XMS_ITS | Encounter Summary ---
Author Organization [facility] Address [address] [place] [address] Care Team Providers Care Spring Coiler Hand Name Role Phone Ian Plolock MD Primary Care Provider [phone] Katina Casiano DO Unavailable [phone] Xavi ACOSTA MD, Jameel Gaviria Primary Care Provider + Katina Casiano DO Unavailable [phone] Tracey Ang PA Unavailable [phone] Belkis Angel FOOTWEAR SALES ASSOCIATE-NURSE RECRUITER Primary Care Provider + Natalie Baum Primary Care Provider [phone] Encounter Details Date Type Department Care Team (Late st Contact Info) Description 03/03/2022 Telephone [facility] [address] [place] [address] Alvarez Duarte MD [address] [address] Social History Tobacco Use Types Packs/Day Years [...] pm. He is having transportation issues med [place] does not run that late. He will call back to schedule when he can figure out his transportation. Please cancel this appt for him. Patient Call Back number: [phone] documented in this encounter Plan of Treatment [...] on filedocumented in this encounter Care Teams Spring Coiler Hand Relationship Specialty Start Date End Date Ian Pollock MD [address] [facility] [place] [address] PCP - General 08/21/20 05/29/23 Jameel Hurley III, MD [address] [facility] [place] [address] PCP - General Internal Medicine 06/05/23 08/28/23 Belkis Angel APRN-NURSE RECRUITER [address] [facility] 2[address] [place] [address] PCP - General Nurse Practitioner 08/29/23 05/05/24 Natalie Baum [address] [place] [address] PCP - General 05/06/24 Katina Casiano DO [address] [facility] [address] DIV [facility] [place], [place] Resident - PCP Internal Medicine 08/10/22 05/29/23 Katina Casiano DO [address] [facility] [address] [facility] [place], [place] Hospitalist 06/05/23 Tracey Ang PA [address] [facility] [address] [place] [address] Physician Inside Sales Consultant 08/15/23 documented as of this encounter
--- OUTSIDE RECORDS SUMMARY | 2024-12-12 20:05 | XMS_ITS | Clinical Summary ---
Author Organization [facility] Address [address] [place] [address] Care Team Providers Care Booster Pump Oiler Name Role Phone Matthew Mccabe MD Primary Care Prov ider Stan Meza MD Unavailable [phone] Allergies Active Allergy Reactions Criticality Noted Date [...] unit tablet Take 1 tablet by mouth ash kier boiler before breakfast 30 tablet 3 09/25/20 24 [...] Date Type Department Care Team Description 12/12/2024 8:08 AM STAND UP COMEDIAN - 12/12/2024 1:30 PM STAND UP COMEDIAN Emergency [facility] Emergency Department 1 [place] [address] Julio Rodriguez MD Shortness of breath (Primary Dx); History of lung cancer; Pneumonia due to infectious organism, unspecified laterality, unspecified part of lung Discharge Disposition: Discharge to home or self care 12/12/2024 Orders Only [facility] [address] [place] [phone] Sasha Hernandes RN Hypokalemia (Primary Dx); Primary cancer of left lower lobe of lung (HCC) 12/10/2024 Orders Only [facility] [address] [place] [phone] Sasha Hernandes RN Primary cancer of left lower lobe of lung (HCC) (Primary Dx); Metastasis to bone (CMS/HCC) (HCC) 12/09/2024 Documentation [facility] [address] [place] [address] Floor 5 [place] [address] Sarah Brunner, HIDE BUYER 12/05/2024 10:30 AM STAND UP COMEDIAN Infusion [facility] [address] [facility] Floor 6 [place] [address] Primary cancer of left lower lobe of lung (HCC) (Primary Dx); Hypokalemia 12/05/2024 9:20 AM STAND UP COMEDIAN Office Visit [facility] [address] [place] [address] Floor 5 [place] [address] Shari Quintana, LE Primary cancer of left lower lobe of lung (HCC) (Primary Dx); Hypokalemia 12/05/2024 8:30 AM STAND UP COMEDIAN Lab [facility] - Lab Collection [address] [place] [address] Floor 5 [place] [address] Primary cancer of left lower lobe of lung (HCC); Hypokalemia 12/05/2024 Social Work [facility] [address] [place] [address] Floor 5 [place] [address] Sarah Brunner, LAURIE 12/05/2024 Telephone [facility] Nutrition Counseling [address] [place] [address] Dagmar Pickard, LARRY 11/29/2024 Telephone [facility] [address] [place] [address] 5 [place] [address] Sasha Hernandes RN 11/28/2024 Telephone [facility] [address] [place] [address] Floor 5 [place] [address] Sasha Hernandes RN 11/28/2024 Orders Only [facility] [address] [place] [address] Floor 5 [place] [address] Sasha Hernandes RN Primary cancer of left lower lobe of lung (HCC) (Primary Dx); Hypokalemia 11/27/2024 Orders Only [facility] [address] [place] [address] Floor 5 [place] [address] Sasha Hernandes RN Primary cancer of left lower lobe of lung (HCC) (Primary Dx) 11/25/2024 Social Work [facility] [address] [place] [phone] Sarah Brunner, [facility] 11/14/2024 8:00 AM STAND UP COMEDIAN - 11/14/2024 11:59 PM STAND UP COMEDIAN [facility] [address] [place] [address] Stan Meza MD Hypokalemia (Primary Dx); Primary cancer of left lower lobe of lung (HCC) Discharge Disposition: Discharge to home or self care 11/14/2024 Orders Only [facility] [address] [place] [phone] Sasha Hernandes RN 11/14/2024 Orders Only [facility] [address] [place] [phone] Sasha Hernandes RN Hypokalemia (Primary Dx) 11/11/2024 Social Work [facility] [address] [place] [phone] Sarah Brunner, [facility] 11/11/2024 Documentation [facility] Radiation Oncology [address] [place] [address] [place] [address] Delmi Saxena, [facility] 11/11/2024 [facility] Radiation Oncology [address] [place] [address] [place] [address] Jeffrey Ham MD 11/11/2024 Orders Only [facility] [address] [place] [phone] Sasha Hernandes RN Metastasis to bone (CMS/HCC) (HCC) (Primary Dx); Primary cancer of left lower lobe of lung (HCC) 11/07/2024 10:30 AM STAND UP COMEDIAN [facility] - Infusion [facility] 5 [place] [address] Primary cancer of left lower lobe of lung (HCC) (Primary Dx) 11/07/2024 9:20 AM STAND UP COMEDIAN Office Visit [facility] [address] [place] [phone] Stan Meza MD Primary cancer of left lower lobe of lung (HCC) (Primary Dx); Metastasis to bone (CMS/HCC) (HCC) 11/07/2024 8:15 AM STAND UP COMEDIAN Lab [facility] Lab [address] [place] [phone] Primary cancer of left lower lobe of lung (HCC) 11/07/2024 8:00 AM STAND UP COMEDIAN Lab [facility] Collection [address] [place] [address] Primary cancer of left lower lobe of lung (HCC); Metastasis to bone (CMS/HCC) (HCC) 11/06/2024 Orders Only [facility] [address] [place] [phone] Sasha Hernandes RN Primary cancer of left lower lobe of lung (HCC) (Primary Dx); Metastasis to bone (CMS/HCC) (HCC) 11/04/2024 Social Work [facility] [address] [place] [phone] Sarah Brunner, HIDE BUYER 10/29/2024 Social Work [facility] [address] [place] [phone] Carissa Long, HIDE BUYER 10/29/2024 Telephone [facility] [address] [place] [phone] Kelly Montes, [facility] 10/28/2024 Telephone [facility] [address] [place] [address] Maddy Freire, ALYX 10/25/2024 2:15 PM STAND UP COMEDIAN - 10/25/2024 11:59 PM [facility] [address] [place] [address] Diagnosis unknown Discharge Disposition: Discharge to home or self care 10/25/2024 Telephone [facility] [address] [place] [address] Floor 5 [place] [address] aSsha Hernandes, RN 10/24/2024 Telephone [facility] Nutrition Counseling 1 [place] [address] Dagmar Pickard, RD 10/24/2024 Documentation [facility] [address] [place] [address] Floor 8 [place] [address] Olimpia Parr RMA 10/18/2024 Documentation [facility] [address] [place] [address] Floor 5 [place] [address] Sarah Brunner, HIDE BUYER 10/17/2024 Telephone [facility] Nutrition Counseling [address] [place] [address] Dagmar Pickard, RD 10/17/2024 Orders Only [facility] [address] [place] [address] Floor 5 [place] [address] Pool Hong, [facility] 10/15/2024 Documentation [address] [address] [address] [place] [address] Gayatri Garza RN 10/14/2024 Social Work [facility] [address] [place] [address] Floor 5 [place] [address] Sarah Brunner, HIDE BUYER 10/10/2024 Telephone [facility]patient [facility] - Palliative Care [address] [facility] [place] [address] Mariah Altamirano, RN 10/03/2024 8:30 AM STAND UP COMEDIAN Infusion [facility] [address] [facility] Floor 5 [place] [address] Primary cancer of left lower lobe of lung (HCC) (Primary Dx) 10/03/2024 7:30 AM STAND UP COMEDIAN Lab [facility] Lab Collection [address] [facility] Floor 5 [place] [address] Primary cancer of left lower lobe of lung (HCC) 10/03/2024 Telephone [facility] ([facility] - [facility] ENT [address] [place] [address] [facility] 11th [place] [address] [place] [address] Alexsandra Augustine, 09/30/2024 Social Work [facility] On[facility] Floor 5 [place] [address] Sarah Brunner, HIDE BUYER 09/25/2024 9:00 AM STAND UP COMEDIAN Infusion [facility] [address] [facility] Floor 5 [place] [address] Primary cancer of left lower lobe of lung (HCC) (Primary Dx) 09/25/2024 8:00 AM STAND UP COMEDIAN Office Visit [facility] [address] [place] [address] Floor 5 [place] [address] Stan Meza MD Primary cancer of left lower lobe of lung (HCC) (Primary Dx) 09/25/2024 7:00 AM STAND UP COMEDIAN Lab [facility] Floor 5 [place] [address] Primary cancer of left lower lobe of lung (HCC) 09/23/2024 Documentation [facility] Palliative Care [address] [place] [phone] Gayatri Garza RN 09/20/2024 Documentation [facility] [address] [place] [address] Floor 5 [place] [address] Sarah Brunner, HIDE BUYER 09/17/2024 11:19 AM STAND UP COMEDIAN - 09/17/2024 11:59 PM STAND UP COMEDIAN Hospital Encounter [facility] Radiology [facility] [address] [place] [address] Discharge Disposition: Discharge to home or self care 09/17/2024 Social Work [facility] Floor 5 [place] [address] Sarah Brunner, LAURIE 09/17/2024 Documentation [facility]patient [facility] - Palliative Care [address] [facility] [place] [address] Mary Ellen Mckeon MD 09/16/2024 Orders Only [facility] [address] [facility] Floor 5 [place] [phone] Sasha Hernandes RN Primary cancer of left lower lobe of lung (HCC) (Primary Dx) 09/11/2024 Telephone [facility] - Palliative Care [address] [place] [address] Mariah Altamirano, ALYX from Last 3 Months Immunizations Name Administration Dates Next Due Influenza, Quadrivalent, Hig h Dose, Preservative Free, Intrr 08/23/2024 Influenza, Quadrivalent, Rec ombinant, Egg Free, Preservative Free, Intramuscular 07/29/2022,07/26/2021 Influenza, Quadrivalent, Spl it, Intramuscular 07/17/2017,09/29/2016 Influenza, Quadrivalent, Spl it, Preservative Free, Intramuscular 09/29/2023,08/04/2020,07/11/2019,08/09,11/02/2015 Influenza, Unspecified 08/13/2020 [employer] SARS-CoV-2 Vaccination 01/17/2021 Pneumococcal Conjugate Pcv20 [...] on file Legal Sex Male 6:04 PM STAND UP COMEDIAN Gender Identity Not on file Sexual Orientation Not on file Obstetrics History Last Filed Vital Signs Vital Sign Reading Time Taken Comments Blood Pressure 205/132 12/12/2024 1:00 PM STAND UP COMEDIAN Pulse 79 12/12/2024 1:00 PM STAND UP COMEDIAN Temperature 36.7 C (98.1 F) 12/12/2024 8:02 AM STAND UP COMEDIAN Respiratory Rate 20 12/12/2024 1:00 PM STAND UP COMEDIAN Oxygen Saturation 100% 12/12/2024 1:00 PM STAND UP COMEDIAN Inhaled Oxygen Concentration - - Weight 83.9 kg (185 lb) 12/12/2024 8:02 AM STAND UP COMEDIAN Height 175.3 cm (5' 9 ) 12/12/2024 8:02 AM STAND UP COMEDIAN Body Mass Index 27.32 12/12/2024 8:02 AM STAND UP COMEDIAN Plan of Treatment Health Maintenance Due Date Last Done Comments Colon Cancer Screening-Colonoscopy 1961 Depression Screening 1961 Hepatitis C Screening 1961 Prostate Cancer Screening-PSA 1961 Hepatitis B Screening 1979 Regular Well Visit/Exam 18-64 1979 Zoster Vaccine (1 of 2) 1980 Covid-19 Vaccine (2023-2 5 season) 2024 09/29/2023, 09/14/2021, 01/17/2021, Additional history exists DTaP/Tdap/Td Vaccine (3 - Td or Tdap) 09/29/2033 09/29/2023, 07/17/2017 Pneumococcal vaccine <65 Completed 07/29/2022, 06/30 Influenza Vaccine Completed 08/23/2024, , 07/29/2022, Additional history exists Procedures Procedure Name Priority Date/Time Associated Diagnosis Comments CT HEAD WO CONTRAST ED 12/12/2024 1 1:[address] CHEST ABDOMEN PELVIS W CONTRAST ED 12/12/2024 11:00 AM STAND UP COMEDIAN TROPONIN I HIGH-SENSITIVITY 2-HOUR Timed 12/12/2024 10:33 AM STAND UP COMEDIAN XR CHEST PA LATERAL 2 VIEWS ED 12/12/2024 10:28 AM STAND UP COMEDIAN PRO B-TYPE NATRIURETIC PEPTIDE STAT 12/12/2024 9:35 AM STAND UP COMEDIAN INFLUENZA A/B, RSV, AND COVID-19 PCR STAT 12/12/2024 9:35 AM STAND UP COMEDIAN EGFR STAT 12/12/2024 8:45 AM STAND UP COMEDIAN DIFFERENTIAL AUTO STAT 12/12/2024 8:4 5 AM STAND UP COMEDIAN TROPONIN I HIGH-SENSITIVITY SERIES (BASELINE, 2HR, 4HR, 6HR) STAT 12/12/2024 8:45 AM STAND UP COMEDIAN CBC WITH AUTO DIFFERENTIAL STAT 12/12/2024 8:45 AM STAND UP COMEDIAN COMPREHENSIVE METABOLIC PANEL STAT 12/12/2024 8:45 AM STAND UP COMEDIAN ECG 12-LEAD STAT 12/12/2024 8:16 AM STAND UP COMEDIAN T3, FREE Routine 12/05/2024 9:34 AM STAND UP COMEDIAN EGFR STAT 12/05/2024 9:34 AM STAND UP COMEDIAN Primary cancer of left lower lobe of lung (HCC) T4, FREE Routine 12/05/2024 9:34 AM STAND UP COMEDIAN Primary cancer of left lower lobe of lung (HCC) Hypokalemia DIFFERENTIAL AUTO STAT 12/05/2024 9:3 4 AM STAND UP COMEDIAN Primary cancer of left lower lobe of lung (HCC) CBC WITH AUTO DIFFERENTIAL STAT 12/05/2024 9:34 AM STAND UP COMEDIAN Primary cancer of left lower lobe of lung (HCC) COMPREHENSIVE METABOLIC PANEL STAT 12/05/2024 9:34 AM STAND UP COMEDIAN Primary cancer of left lower lobe of lung (HCC) THYROID FUNCTION CASCADE Routine 12/05/2024 9:34 AM STAND UP COMEDIAN Primary cancer of left lower lobe of lung (HCC) Hypokalemia EGFR STAT 11/14/2024 8:52 AM STAND UP COMEDIAN Primary cancer of left lower lobe of lung (HCC) COMPREHENSIVE METABOLIC PANEL STAT 11/14/2024 8:52 AM STAND UP COMEDIAN Primary cancer of left lower lobe of lung (HCC) DIFFERENTIAL AUTO STAT 11/14/2024 8:3 8 AM STAND UP COMEDIAN Primary cancer of left lower lobe of lung (HCC) CBC WITH AUTO DIFFERENTIAL STAT 11/14/2024 8:38 AM STAND UP COMEDIAN Primary cancer of left lower lobe of lung (HCC) EGFR STAT 11/07/2024 8:14 AM STAND UP COMEDIAN Primary cancer of left lower lobe of lung (HCC) DIFFERENTIAL AUTO STAT 11/07/2024 8:1 4 AM STAND UP COMEDIAN Primary cancer of left lower lobe of lung (HCC) MAGNESIUM STAT 11/07/2024 8:14 AM STAND UP COMEDIAN Primary cancer of left lower lobe of lung (HCC) Metastasis to bone (CMS/HCC) (HCC) PHOSPHORUS STAT 11/07/2024 8:14 AM STAND UP COMEDIAN Primary cancer of left lower lobe of lung (HCC) Metastasis to bone (CMS/HCC) (HCC) VITAMIN D 25 HYDROXY Routine 11/07/2024 8:14 AM STAND UP COMEDIAN Primary cancer of left lower lobe of lung (HCC) Metastasis to bone (CMS/HCC) (HCC) CBC WITH AUTO DIFFERENTIAL STAT 11/07/2024 8:14 AM STAND UP COMEDIAN Primary cancer of left lower lobe of lung (HCC) COMPREHENSIVE METABOLIC PANEL STAT 11/07/2024 8:14 AM STAND UP COMEDIAN Primary cancer of left lower lobe of lung (HCC) CT BODY OUTSIDE CONSULT Routine 10/25/2024 2:15 PM STAND UP COMEDIAN Diagnosis unknown DIFFERENTIAL AUTO Routine 10/03/2024 7:3 4 AM STAND UP COMEDIAN Primary cancer of left lower lobe of lung (HCC) CBC WITH AUTO DIFFERENTIAL Routine 10/03/2024 7:34 AM STAND UP COMEDIAN Primary cancer of left lower lobe of lung (HCC) EGFR STAT 09/25/2024 7:43 AM STAND UP COMEDIAN Primary cancer of left lower lobe of lung (HCC) DIFFERENTIAL AUTO STAT 09/25/2024 7:4 3 AM STAND UP COMEDIAN Primary cancer of left lower lobe of lung (HCC) CBC WITH AUTO DIFFERENTIAL STAT 09/25/2024 7:43 AM STAND UP COMEDIAN Primary cancer of left lower lobe of lung (HCC) COMPREHENSIVE METABOLIC PANEL STAT 09/25/2024 7:43 AM STAND UP COMEDIAN Primary cancer of left lower lobe of lung (HCC) CT BODY OUTSIDE REFERENCE Routine 09/17/2024 11:19 AM STAND UP COMEDIAN from Last 3 Months Results * CT Chest Abdomen Pelvis W Contrast (12/12/2024 11:00 AM STAND UP COMEDIAN) Anatomical Region Laterality Modality Body N/A Computed Tomogra phy 12/12/2024 11:3 3 AM STAND UP COMEDIAN Impressions 12/12/2024 11:33 AM STAND UP COMEDIAN 1. Similar burden of osseous metastasis, treated bilateral adrenal metastasis, and slightly smaller measurement of left hilar tumor. No evidence of progression. 2. Similar degree of mild severity peripheral lung damage/organized pneumonia. Electronically signed by: El Bee M.D. Narrative 12/12/2024 11:33 AM STAND UP COMEDIAN EXAMINATION: Computed tomography of the chest, abdomen [...] by: El Bee M.D. Anderson Bahena MD IMG CT PROCEDURES Final Result * CT Head WO Contrast (12/12/2024 11:00 AM STAND UP COMEDIAN) Anatomical Region Laterality Modality Head and Neck N/A Computed Tomogra phy 12/12/2024 11:0 7 AM STAND UP COMEDIAN Impressions 12/12/2024 11:07 AM STAND UP COMEDIAN 1. No acute intracranial hemorrhage, mass effect, or large new area of edema.. Note is made that a contrast-enhanced examination would be more sensitive for the detection of intracranial metastases. Electronically signed by: Luciano Napier M.D. Narrative 12/12/2024 11:07 AM STAND UP COMEDIAN EXAMINATION: CT head without contrast HISTORY: Metastatic [...] Troponin I high-sensitivity 2-hour (12/12/2024 10:33 AM STAND UP COMEDIAN) Trop I hs 6 <=35 ng/L Comment: Interpretive Data For further hscTnI resources including the diagnostic algorithm and an aid in interpretation, copy and paste this link: https://bjhlab.testcatalog.org/show/hsTrop-1 Current Interpretive Data last revised 2020. Trop I hs delta 1 ng/L [facility] Trop I hs interp Insignificant CERNER BJ Blood 12/12/2024 10:3 3 AM STAND UP COMEDIAN 12/12/2024 10:45 AM STAND UP COMEDIAN Natalie Guzman MD LAB BLOOD ORDERABLES Yolette l Result [facility] Department [place] [address] * XR Chest PA Lateral 2 Views (12/12/2024 10:28 AM STAND UP COMEDIAN) Anatomical Region Laterality Modality Body, Chest N/A Computed Radiogr aphy 12/12/2024 11:1 1 AM STAND UP COMEDIAN Impressions 12/12/2024 11:11 AM STAND UP COMEDIAN Comparison May 2024. Low lung volumes. Mild [...] El Bee M.D. Narrative 12/12/2024 11:11 AM STAND UP COMEDIAN EXAMINATION: 2 view chest radiograph Procedure Note [...] and COVID-19 PCR Nasopharyngeal (12/12/2024 9:35 AM STAND UP COMEDIAN) COVID-19 RNA Negative Negative [facility] Influenza A RNA Negative Negative [facility] Influenza B RNA Negative Negative [facility] RSV RNA Negative Negative [facility] Comment: Interpretive data: Testing performed by [facility] ([phone]). This test is performed using the [employer] Xpert Xpress CoV-2/Flu/RSV plus assay. This is a multiplex, real-time reverse transcriptase PCR assay intended for the qualitative detection of nucleic acid from SARS-CoV-2, influenza A, influenza B, and respiratory syncytial virus. This assay has been cleared by the [place] Food and Drug administration. The performance characteristics have been verified by the [facility]. Results must be considered in the clinical context, and a negative result does not rule out infection. Interpretive Data last revised 2023 Nasopharyngeal 12/12/2024 9: 35 AM STAND UP COMEDIAN 12/12/2024 9:46 AM STAND UP COMEDIAN [facility] - 12/12/2024 10:27 AM STAND UP COMEDIAN Is the Patient experiencing symptoms consistent with COVID?->No Anderson Bahena MD LAB MICROBIOLOGY - GENE RAL ORDERABLES Final Result [facility] Department [place] [address] [facility] * (ABNORMAL) Pro B-type natriuretic peptide (12/12/2024 9:35 AM STAND UP COMEDIAN) NT-proBNP 695(H) <=300 pg/mL Comment: Interpretive Comments: [...] et.al. Eur Heart J. 2006:27:330-337. 2. Chapito HERNANDEZ, Lawrence VILLEGAS. J. AM Ana Cardiol: Cardiovasc Imag. 2009;2: 216- 225. Interpretive Data Last Revised Date: 2018. Blood 12/12/2024 9:35 AM STAND UP COMEDIAN 12/12/2024 9:48 AM STAND UP COMEDIAN Anderson Bahena MD LAB BLOOD ORDERABLES Fi nal Result Performing Organization Address City/[facility]/ZIP Co de Phone Number [facility]MA [facility] Department [place] [address] * Troponin I high-sensitivity series (baseline, 2hr, 4hr, 6hr) (12/12/2024 8:45 AM STAND UP COMEDIAN) Trop I hs 5 <=35 ng/L Comment: Interpretive Data For further hscTnI resources including the diagnostic algorithm and an aid in interpretation, copy and paste this link: https://bjhlab.testcatalog.org/show/hsTrop-1 Current Interpretive Data last revised 2020. Blood 12/12/2024 8:45 AM STAND UP COMEDIAN 12/12/2024 8:55 AM STAND UP COMEDIAN Julio Rodriguez MD LAB BLOOD ORDERABLES F inal Result Performing Organization Address City/[facility] Co de Phone Number CHEMA [facility] Department [place] [address] * eGFR (12/12/2024 8:45 AM STAND UP COMEDIAN) eGFR >90 >=60 mL/min/1. 73 m2 Comment: [...] last reviewed 2021. Blood 12/12/2024 8:45 AM STAND UP COMEDIAN 12/12/2024 8:55 AM STAND UP COMEDIAN us Julio Rodriguez MD LAB BLOOD ORDERABLES F inal Result [facility] Department [place] [address] * (ABNORMAL) Differential, auto (12/12/2024 8:45 AM STAND UP COMEDIAN) Neutrophil abs 3.7 1.5 - 6.5 K/cumm Imm gran abs 0.0 0.0 - 0.1 K/cumm [facility] Lymphocyte abs 0.7(L) 0.8 - 3.3 K/cumm [facility] Monocyte abs 0.4 0.2 - 0.8 K/cumm [facility] Eosinophil abs 0.3 0.0 - 0.5 K/cumm [facility] Basophil abs 0.0 0.0 - 0.1 K/cumm [facility] Neutrophil pct 72.0 % [facility] Comment: Interpretive Data Percent cell count reference ranges are not reported, since discordance with absolute values may lead to misinterpretation of CBC data. Current Interpretive Data was last revised on 2018. Imm gran pct 0.4 % [facility] Comment: Interpretive Data Percent cell count reference ranges are not reported, since discordance with absolute values may lead to misinterpretation of CBC data. Current Interpretive Data was last revised on 2018. Lymphocyte pct 12.7 % [facility] Comment: Interpretive Data Percent cell count reference ranges are not reported, since discordance with absolute values may lead to misinterpretation of CBC data. Current Interpretive Data was last revised on 2018. Monocyte pct 7.6 % [facility] Comment: Interpretive Data Percent cell count reference ranges are not reported, since discordance with absolute values may lead to misinterpretation of CBC data. Current Interpretive Data was last revised on 2018. Eosinophil pct 6.7 % [facility] Comment: Interpretive Data Percent cell count reference ranges are not reported, since discordance with absolute values may lead to misinterpretation of CBC data. Current Interpretive Data was last revised on 2018. Basophil pct 0.6 % [facility] Comment: Interpretive Data Percent cell count reference ranges are not reported, since discordance with absolute values may lead to misinterpretation of CBC data. Current Interpretive Data was last revised on 2018. Blood 12/12/2024 8:45 AM STAND UP COMEDIAN 12/12/2024 8:55 AM STAND UP COMEDIAN Julio Rodriguez MD LAB BLOOD ORDERABLES F inal Result [facility] Department [place] [address] * (ABNORMAL) CBC with auto differential (12/12/2024 8:45 AM STAND UP COMEDIAN) WBC 5.1 3.8 - 9.9 K/cumm Hgb 10.3(L) 13.0 - 17.5 g/dL [facility] Hct 31.8(L) 38.9 - 50.3 % [facility] Plt 176 150 - 400 K/cumm [facility] MPV 8.9(L) 9.1 - 12.3 fL [facility] RBC 3.55(L) 4.30 - 5.80 M/cumm [facility] MCV 89.6 81.3 - 96.4 fL [facility] MCH 29.0 27.1 - 33.3 pg [facility] MCHC 32.4 32.3 - 35.7 g/dL [facility] RDW CV 19.2(H) 11.1 - 14.9 % [facility] RDW SD 63.2(H) 35.7 - 48.1 fL [facility] NRBC abs 0.00 0.00 - 0.01 K/cumm [facility] Blood 12/12/2024 8:45 AM STAND UP COMEDIAN 12/12/2024 8:55 AM STAND UP COMEDIAN us Julio Rodriguez MD LAB BLOOD ORDERABLES F inal Result [facility] Department [place] [address] * (ABNORMAL) Comprehensive metabolic panel (12/12/2024 8:45 AM STAND UP COMEDIAN) Sodium 133(L) 135 - 145 mmol/L Potassium, pl 4.0 3.3 - 4.9 mmol/L [facility] Chloride 97 97 - 110 mmol/L [facility] CO2 29 22 - 32 mmol/L [facility] Anion gap 7 2 - 15 mmol/L [facility] BUN 3(L) 6 - 25 mg/dL [facility] Creatinine 0.54(L) 0.80 - 1.30 mg/dL [facility] Glucose 101 70 - 199 mg/dL [facility] Comment: Interpretive Data Fasting glucose >/= [...] 2022. Calcium 9.4 8.5 - 10.3 mg/dL [facility] Bilirubin, total 0.4 0.1 - 1.2 mg/dL [facility] Protein, pl 6.6 6.5 - 8.5 g/dL [facility] Albumin 3.6 3.5 - 5.0 g/dL [facility] Alk phos 121 40 - 130 Units/L [facility] ALT 11 7 - 55 Units/L [facility] AST 19 10 - 50 Units/L [facility] Blood 12/12/2024 8:45 AM STAND UP COMEDIAN 12/12/2024 8:55 AM STAND UP COMEDIAN Julio Rodriguez MD LAB BLOOD ORDERABLES F inal Result [facility] Department [place] [address] * ECG 12-LEAD (12/12/2024 8:16 AM STAND UP COMEDIAN) Narrative [facility] - 12/12/2024 8:16 AM STAND UP COMEDIAN Julio Rodriguez MD 12/12/2024 8:16 AM ECG [...] Julio Rodriguez MD ECG ORDERABLES Final Result [facility] * eGFR (12/05/2024 9:34 AM STAND UP COMEDIAN) eGFR >90 >=60 mL/min/1. 73 m2 Comment: [...] last reviewed 2021. Blood 12/05/2024 9:34 AM STAND UP COMEDIAN 12/05/2024 9:39 AM STAND UP COMEDIAN us Stan Meza MD LAB BLOOD ORDERABLES Yolette banda Result [facility] Department of Laboratories [place] [id number] * Differential, auto (12/05/2024 9:34 AM STAND UP COMEDIAN) Neutrophil abs 2.5 1.5 - 6.5 K/cumm Comment:Testing performed by : [facility], [address] [place] [phone] Lymphocyte abs 0.8 0.8 - 3.3 K/cumm [facility] Comment:Testing performed by : [facility], [address] [place] [phone] Monocyte abs 0.8 0.2 - 0.8 K/cumm [facility] Comment:Testing performed by : [facility], [address] [place] [phone] Eosinophil abs 0.2 0.0 - 0.5 K/cumm [facility] Comment:Testing performed by : [facility], [address] [place] [phone] Basophil abs 0.0 0.0 - 0.1 K/cumm [facility] Comment:Testing performed by : [facility], [address] [place] [phone] Neutrophil pct 58.7 % [facility] Comment: Interpretive Data Percent cell count reference ranges are not reported, since discordance with absolute values may lead to misinterpretation of CBC data. Current Interpretive Data was last revised on 2018. Testing performed by: [facility], [address] [place] [phone] Lymphocyte pct 17.5 % [facility] Comment: Interpretive Data Percent cell count reference ranges are not reported, since discordance with absolute values may lead to misinterpretation of CBC data. Current Interpretive Data was last revised on 2018. Testing performed by: [facility], [address] [place] [phone] Monocyte pct 19.3 % [facility] Comment: Interpretive Data Percent cell count reference ranges are not reported, since discordance with absolute values may lead to misinterpretation of CBC data. Current Interpretive Data was last revised on 2018. Testing performed by: [facility], [address] [place] [phone] Eosinophil pct 4.0 % [facility] Comment: Interpretive Data Percent cell count reference ranges are not reported, since discordance with absolute values may lead to misinterpretation of CBC data. Current Interpretive Data was last revised on 2018. Testing performed by: [facility], [address] [place] [phone] Basophil pct 0.5 % [facility] Comment: Interpretive Data Percent cell count reference ranges are not reported, since discordance with absolute values may lead to misinterpretation of CBC data. Current Interpretive Data was last revised on 2018. Testing performed by: [facility], [address] [place] [phone] Blood 12/05/2024 9:34 AM STAND UP COMEDIAN 12/05/2024 9:39 AM STAND UP COMEDIAN Stan Meza MD LAB BLOOD ORDERABLES Yolette l Result [facility] Department [place] [address] * (ABNORMAL) Thyroid Function [place] (12/05/2024 9:34 AM STAND UP COMEDIAN) Pathologist [facility] TSH 0.24(L) 0.30 - 4.20 mcIUnit/mL Blood 12/05/2024 9:34 AM STAND UP COMEDIAN 12/05/2024 9:39 AM STAND UP COMEDIAN Stan Meza MD LAB BLOOD ORDERABLES Yolette l Result Performing Organization Address City/[facility] Co de Phone Number [facility] Department [place] [address] * (ABNORMAL) CBC with auto differential (12/05/2024 9:34 AM STAND UP COMEDIAN) Pathologist [facility] WBC 4.3 3.8 - 9.9 K/cumm Comment:Testing performed by : [facility], [address] [place] [address] Hgb 10.0(L) 13.0 - 17.5 g/dL [facility] Comment:Testing performed by : [facility], [address] [place] [address] Hct 31.1(L) 38.9 - 50.3 % [facility] Comment:Testing performed by : [facility], [address] [place] [address] Plt 124(L) 150 - 400 K/cumm [facility] Comment:Testing performed by : [facility], [address] [place] [address] MPV 7.4 6.8 - 10.4 fL [facility] Comment:Testing performed by : [facility], [address] [place] [address] RBC 3.43(L) 4.30 - 5.80 M/cumm [facility] Comment:Testing performed by : [facility], [address] [place] [phone] MCV 90.7 81.3 - 96.4 fL [facility] Comment:Testing performed by : [facility], [address] [place], [place] [phone] MCH 29.1 27.1 - 33.3 pg [facility] Comment:Testing performed by : [facility], [address] [place], [place] [phone] MCHC 32.1(L) 32.3 - 35.7 g/dL [facility] Comment:Testing performed by : [facility], [address] [place], [place] [phone] RDW CV 18.8(H) 11.1 - 14.9 % [facility] Comment:Testing performed by : [facility], [address] [place], [place] [phone] NRBC abs 0.00 0.00 - 0.01 K/cumm [facility] Comment:Testing performed by : [facility], [address] [place], [place] [phone] Blood 12/05/2024 9:34 AM STAND UP COMEDIAN 12/05/2024 9:39 AM STAND UP COMEDIAN us Stan Meza MD LAB BLOOD ORDERABLES Yolette l Result [facility] Department [place] [address] * T3, free (12/05/2024 9:34 AM STAND UP COMEDIAN) Free T3 2.7 2.0 - 4.4 pg/mL Blood 12/05/2024 9:34 AM STAND UP COMEDIAN 12/05/2024 9:39 AM STAND UP COMEDIAN Narrative [facility] - 12/05/2024 11:06 AM STAND UP COMEDIAN This test was reflexed from a T4 result. Stan Meza MD LAB BLOOD ORDERABLES Yolette l Result Performing Organization Address [facility] Co de Phone Number [facility] [place] [address] * T4, free (12/05/2024 9:34 AM STAND UP COMEDIAN) Pathologist [facility] Free T4 1.26 0.90 - 1.70 ng/dL Blood 12/05/2024 9:34 AM STAND UP COMEDIAN 12/05/2024 9:39 AM STAND UP COMEDIAN Narrative [facility] - 12/05/2024 10:41 AM STAND UP COMEDIAN This test was reflexed from a TSH result. Stna Meza MD LAB BLOOD ORDERABLES Yolette l Result Performing Organization Address [facility] de Phone Number [facility] [place] [address] * (ABNORMAL) Comprehensive metabolic panel (12/05/2024 9:34 AM STAND UP COMEDIAN) [facility] Sodium 133(L) 135 - 145 mmol/L Potassium, pl 4.0 3.3 - 4.9 mmol/L [facility] Chloride 98 97 - 110 mmol/L [facility] CO2 28 22 - 32 mmol/L [facility] Anion gap 7 2 - 15 mmol/L [facility] BUN 5(L) 6 - 25 mg/dL [facility] Creatinine 0.65(L) 0.80 - 1.30 mg/dL [facility] Glucose 106 70 - 199 mg/dL [facility] Comment: Interpretive Data Fasting glucose >/= [...] Protein, pl 6.9 6.5 - 8.5 g/dL [facility] Albumin 3.8 3.5 - 5.0 g/dL [facility] Alk phos 127 40 - 130 Units/L [facility] ALT 7 7 - 55 Units/L [facility] AST 17 10 - 50 Units/L [facility] Blood 12/05/2024 9:34 AM STAND UP COMEDIAN 12/05/2024 9:39 AM STAND UP COMEDIAN us Stan Meza MD LAB BLOOD ORDERABLES Yolette l Result [facility] Department [place] [address] * eGFR (11/14/2024 8:52 AM STAND UP COMEDIAN) eGFR >90 >=60 mL/min/1. 73 m2 Comment: [...] last reviewed 2021. Blood 11/14/2024 8:52 AM STAND UP COMEDIAN 11/14/2024 8:59 AM STAND UP COMEDIAN us Stan Meza MD LAB BLOOD ORDERABLES Yolette banda Result [facility] Department [place] [address] * (ABNORMAL) Comprehensive metabolic panel (11/14/2024 8:52 AM STAND UP COMEDIAN) Sodium 139 135 - 145 mmol/L Potassium, pl 3.1(L) 3.3 - 4.9 mmol/L [facility] Chloride 101 97 - 110 mmol/L [facility] CO2 31 22 - 32 mmol/L [facility] Anion gap 7 2 - 15 mmol/L [facility] BUN 4(L) 6 - 25 mg/dL [facility] Creatinine 0.64(L) 0.80 - 1.30 mg/dL [facility] Glucose 113 70 - 199 mg/dL [facility] Comment: Interpretive Data Fasting glucose >/= [...] 2022. Calcium 9.0 8.5 - 10.3 mg/dL [facility] Bilirubin, total 0.3 0.1 - 1.2 mg/dL [facility] Protein, pl 6.9 6.5 - 8.5 g/dL [facility] Albumin 3.9 3.5 - 5.0 g/dL [facility] Alk phos 128 40 - 130 Units/L [facility] ALT 9 7 - 55 Units/L [facility] AST 16 10 - 50 Units/L [facility] Blood 11/14/2024 8:52 AM STAND UP COMEDIAN 11/14/2024 8:59 AM STAND UP COMEDIAN us Stan Meza MD LAB BLOOD ORDERABLES Yolette banda Result [facility] Department [place] [address] * (ABNORMAL) Differential, auto (11/14/2024 8:38 AM STAND UP COMEDIAN) Neutrophil abs 2.4 1.5 - 6.5 K/cumm Imm gran abs 0.0 0.0 - 0.1 K/cumm [facility] Lymphocyte abs 0.6(L) 0.8 - 3.3 K/cumm [facility] Monocyte abs 0.2 0.2 - 0.8 K/cumm [facility] Eosinophil abs 0.1 0.0 - 0.5 K/cumm [facility] Basophil abs 0.1 0.0 - 0.1 K/cumm [facility] Neutrophil pct 70.0 % [facility] Comment: Interpretive Data Percent cell count reference ranges are not reported, since discordance with absolute values may lead to misinterpretation of CBC data. Current Interpretive Data was last revised on 2018. Imm gran pct 0.9 % [facility] Comment: Interpretive Data Percent cell count reference ranges are not reported, since discordance with absolute values may lead to misinterpretation of CBC data. Current Interpretive Data was last revised on 2018. Lymphocyte pct 18.5 % [facility] Comment: Interpretive Data Percent cell count reference ranges are not reported, since discordance with absolute values may lead to misinterpretation of CBC data. Current Interpretive Data was last revised on 2018. Monocyte pct 5.6 % [facility] Comment: Interpretive Data Percent cell count reference ranges are not reported, since discordance with absolute values may lead to misinterpretation of CBC data. Current Interpretive Data was last revised on 2018. Eosinophil pct 3.5 % [facility] Comment: Interpretive Data Percent cell count reference ranges are not reported, since discordance with absolute values may lead to misinterpretation of CBC data. Current Interpretive Data was last revised on 2018. Basophil pct 1.5 % [facility] Comment: Interpretive Data Percent cell count reference ranges are not reported, since discordance with absolute values may lead to misinterpretation of CBC data. Current Interpretive Data was last revised on 2018. Blood 11/14/2024 8:38 AM STAND UP COMEDIAN 11/14/2024 8:59 AM STAND UP COMEDIAN Stan Meza MD LAB BLOOD ORDERABLES Yolette l Result Performing Organization Address [facility] Co de Phone Number [facility] [place] [address] * (ABNORMAL) CBC with auto differential (11/14/2024 8:38 AM STAND UP COMEDIAN) WBC 3.4(L) 3.8 - 9.9 K/cumm Hgb 9.3(L) 13.0 - 17.5 g/dL [facility] Hct 28.9(L) 38.9 - 50.3 % [facility] Plt 196 150 - 400 K/cumm [facility] MPV 10.5 9.1 - 12.3 fL [facility] RBC 3.34(L) 4.30 - 5.80 M/cumm [facility] MCV 86.5 81.3 - 96.4 fL [facility] MCH 27.8 27.1 - 33.3 pg [facility] MCHC 32.2(L) 32.3 - 35.7 g/dL [facility] RDW CV 18.5(H) 11.1 - 14.9 % [facility] RDW SD 59.2(H) 35.7 - 48.1 fL [facility] NRBC abs 0.00 0.00 - 0.01 K/cumm [facility] Blood 11/14/2024 8:38 AM STAND UP COMEDIAN 11/14/2024 8:59 AM STAND UP COMEDIAN Stan Meza MD LAB BLOOD ORDERABLES Yolette l Result Performing Organization Address [facility]/ZIP Co de Phone Number [facility] [place] [place] [address] * eGFR (11/07/2024 8:14 AM STAND UP COMEDIAN) [facility] eGFR >90 >=60 mL/min/1. 73 [...] last reviewed 2021. Blood 11/07/2024 8:14 AM STAND UP COMEDIAN 11/07/2024 8:18 AM STAND UP COMEDIAN us Stan Meza MD LAB BLOOD ORDERABLES Yolette banda Result [facility] Department [place] [address] * Differential, auto (11/07/2024 8:14 AM STAND UP COMEDIAN) [facility] Neutrophil abs 3.0 1.5 - 6.5 K/cumm Comment:Testing performed by : [facility], [address] [place] [phone] Lymphocyte abs 0.8 0.8 - 3.3 K/cumm [facility] Comment:Testing performed by : [facility], [address] [place] [phone] Monocyte abs 0.7 0.2 - 0.8 K/cumm [facility] Comment:Testing performed by : [facility], [address] [place] [phone] Eosinophil abs 0.3 0.0 - 0.5 K/cumm [facility] Comment:Testing performed by : [facility], [address] [place] [phone] Basophil abs 0.1 0.0 - 0.1 K/cumm [facility] Comment:Testing performed by : [facility], [address] [place] [phone] Neutrophil pct 60.9 % [facility] Comment: Interpretive Data Percent cell count reference ranges are not reported, since discordance with absolute values may lead to misinterpretation of CBC data. Current Interpretive Data was last revised on 2018. Testing performed by: [facility], [address] [place] [phone] Lymphocyte pct 17.4 % [facility] Comment: Interpretive Data Percent cell count reference ranges are not reported, since discordance with absolute values may lead to misinterpretation of CBC data. Current Interpretive Data was last revised on 2018. Testing performed by: [facility], [address] [place] [phone] Monocyte pct 14.4 % [facility] Comment: Interpretive Data Percent cell count reference ranges are not reported, since discordance with absolute values may lead to misinterpretation of CBC data. Current Interpretive Data was last revised on 2018. Testing performed by: [facility], [address] [place] [phone] Eosinophil pct 6.2 % [facility] Comment: Interpretive Data Percent cell count reference ranges are not reported, since discordance with absolute values may lead to misinterpretation of CBC data. Current Interpretive Data was last revised on 2018. Testing performed by: [facility], [address] [place] [phone] Basophil pct 1.1 % [facility] Comment: Interpretive Data Percent cell count reference ranges are not reported, since discordance with absolute values may lead to misinterpretation of CBC data. Current Interpretive Data was last revised on 2018. Testing performed by: [facility], [address] [place] [address] Blood 11/07/2024 8:14 AM STAND UP COMEDIAN 11/07/2024 8:16 AM STAND UP COMEDIAN us Stan Meza MD LAB BLOOD ORDERABLES Yolette veronika Result [facility] Department [place] [address] * (ABNORMAL) CBC with auto differential (11/07/2024 8:14 AM STAND UP COMEDIAN) WBC 4.9 3.8 - 9.9 K/cumm Comment:Testing performed by : [facility], [address] [place] [address] Hgb 9.8(L) 13.0 - 17.5 g/dL [facility] Comment:Testing performed by : [facility], [address] [place] [address] Hct 30.1(L) 38.9 - 50.3 % [facility] Comment:Testing performed by : [facility], [address] [place] [address] Plt 232 150 - 400 K/cumm [facility] Comment:Testing performed by : [facility], [address] [place] [address] MPV 6.8 6.8 - 10.4 fL [facility] Comment:Testing performed by : [facility], [address] [place] [address] RBC 3.47(L) 4.30 - 5.80 M/cumm [facility] Comment:Testing performed by : [facility], [address] [place] [address] MCV 86.6 81.3 - 96.4 fL [facility] Comment:Testing performed by : [facility], [address] [place] [address] MCH 28.3 27.1 - 33.3 pg [facility] Comment:Testing performed by : [facility], [address] [place] [phone] MCHC 32.6 32.3 - 35.7 g/dL [facility] Comment:Testing performed by : [facility], [address] [place], [place] [phone] RDW CV 21.1(H) 11.1 - 14.9 % [facility] Comment:Testing performed by : [facility], [address] [place] [phone] NRBC abs 0.00 0.00 - 0.01 K/cumm [facility] Comment:Testing performed by : [facility], [address] [place] [phone] Blood 11/07/2024 8:14 AM STAND UP COMEDIAN 11/07/2024 8:16 AM STAND UP COMEDIAN Stan Meza MD LAB BLOOD ORDERABLES Yolette l Result Performing Organization Address City/[facility]/ZIP Co de Phone Number [facility] Department [place] [address] * (ABNORMAL) Vitamin D 25 hydroxy (11/07/2024 8:14 AM STAND UP COMEDIAN) Pathologist [facility] Vitamin D 25-OH 23(L) 30 - 80 ng/mL Blood 11/07/2024 8:14 AM STAND UP COMEDIAN 11/07/2024 8:18 AM STAND UP COMEDIAN Stan Meza MD LAB BLOOD ORDERABLES Yolette l Result [facility] Department [place] [address] * Phosphorus (11/07/2024 8:14 AM STAND UP COMEDIAN) Pathologist [facility] Phosphorus, pl 3.4 2.3 - 4.5 mg/dL Blood 11/07/2024 8:14 AM STAND UP COMEDIAN 11/07/2024 8:18 AM STAND UP COMEDIAN Stan Meza MD LAB BLOOD ORDERABLES Yolette l Result Performing Organization Address City/[facility]/ZIP Co de Phone Number [facility] Department [place] [address] * Magnesium (11/07/2024 8:14 AM STAND UP COMEDIAN) Pathologist [facility] Magnesium 1.7 1.4 - 2.5 mg/dL Blood 11/07/2024 8:14 AM STAND UP COMEDIAN 11/07/2024 8:18 AM STAND UP COMEDIAN Stan Meza MD LAB BLOOD ORDERABLES Yolette l Result Performing Organization Address [facility] de Phone Number [facility] Department [place] [address] * (ABNORMAL) Comprehensive metabolic panel (11/07/2024 8:14 AM STAND UP COMEDIAN) [facility] Sodium 138 135 - 145 mmol/L Potassium, pl 3.5 3.3 - 4.9 mmol/L [facility] Chloride 101 97 - 110 mmol/L [facility] CO2 28 22 - 32 mmol/L [facility] Anion gap 9 2 - 15 mmol/L [facility] BUN 4(L) 6 - 25 mg/dL [facility] Creatinine 0.66(L) 0.80 - 1.30 mg/dL [facility] Glucose 97 70 - 199 mg/dL [facility] Comment: Interpretive Data Fasting glucose >/= [...] Calcium 9.3 8.5 - 10.3 mg/dL [facility] Bilirubin, total 0.3 0.1 - 1.2 mg/dL [facility] Protein, pl 6.6 6.5 - 8.5 g/dL [facility] Albumin 3.6 3.5 - 5.0 g/dL [facility] Alk phos 123 40 - 130 Units/L [facility] ALT 7 7 - 55 Units/L [facility] AST 14 10 - 50 Units/L [facility] Blood 11/07/2024 8:14 AM STAND UP COMEDIAN 11/07/2024 8:18 AM STAND UP COMEDIAN us Stan Meza MD LAB BLOOD ORDERABLES Yolette banda Result [facility] Department [place] [address] * CT Body Outside Consult (10/25/2024 2:15 PM STAND UP COMEDIAN) Anatomical Region Laterality Modality Body N/A Computed Tomogra phy 10/27/2024 7:03 PM STAND UP COMEDIAN Impressions 10/27/2024 7:03 PM STAND UP COMEDIAN 1. Marked response to therapy in the [...] images may or may not represent the [place] tribe source data set and thus may contain changes that may lower the accuracy of this second-opinion interpretation. Electronically signed by: Wally Garg M.D. Narrative 10/27/2024 7:03 PM STAND UP COMEDIAN EXAMINATION: RADIOLOGY CONSULTATION ON OUTSIDE IMAGING STUDY STUDY INITIALLY PERFORMED: 10/23/2024 at [facility]. TYPE OF STUDY: Multiple CT images of [...] IMAGING STUDY STUDY INITIALLY PERFORMED: 10/23/2024 at [facility]. TYPE OF STUDY: Multiple CT images of [...] images may or may not represent the [place]owa tribe source data set and thus may contain changes that may lower the accuracy of this second-opinion interpretation. Electronically signed by: Wally Garg M.D. us Stan Meza MD IMG CT PROCEDURES Final R esult * Differential, auto (10/03/2024 7:34 AM STAND UP COMEDIAN) Neutrophil abs 2.5 1.5 - 6.5 K/cumm Comment:Testing performed by : [facility], [address] [place] [address] Lymphocyte abs 0.8 0.8 - 3.3 K/cumm [facility] Comment:Testing performed by : [facility], [address] [place], [place] [phone] Monocyte abs 0.4 0.2 - 0.8 K/cumm [facility] Comment:Testing performed by : [facility], [address] [place], [place] [phone] Eosinophil abs 0.1 0.0 - 0.5 K/cumm [facility] Comment:Testing performed by : [facility], [address] [place] [address] Basophil abs 0.0 0.0 - 0.1 K/cumm [facility] Comment:Testing performed by : [facility], [address] [place] [phone] Neutrophil pct 65.4 % [facility] Comment: Interpretive Data Percent cell count reference ranges are not reported, since discordance with absolute values may lead to misinterpretation of CBC data. Current Interpretive Data was last revised on 2018. Testing performed by: [facility], [address] [place] [phone] Lymphocyte pct 21.8 % [facility] Comment: Interpretive Data Percent cell count reference ranges are not reported, since discordance with absolute values may lead to misinterpretation of CBC data. Current Interpretive Data was last revised on 2018. Testing performed by: [facility], [address] [place] [phone] Monocyte pct 10.8 % [facility] Comment: Interpretive Data Percent cell count reference ranges are not reported, since discordance with absolute values may lead to misinterpretation of CBC data. Current Interpretive Data was last revised on 2018. Testing performed by: [facility], [address] [place] [phone] Eosinophil pct 1.8 % [facility] Comment: Interpretive Data Percent cell count reference ranges are not reported, since discordance with absolute values may lead to misinterpretation of CBC data. Current Interpretive Data was last revised on 2018. Testing performed by: [facility], [address] [place] [phone] Basophil pct 0.2 % [facility] Comment: Interpretive Data Percent cell count reference ranges are not reported, since discordance with absolute values may lead to misinterpretation of CBC data. Current Interpretive Data was last revised on 2018. Testing performed by: [facility], [address] [place] [phone] Blood 10/03/2024 7:34 AM STAND UP COMEDIAN 10/03/2024 7:37 AM STAND UP COMEDIAN us Stan Meza MD LAB BLOOD ORDERABLES Yolette banda Result [facility] Department [place] [address] * (ABNORMAL) CBC with auto differential (10/03/2024 7:34 AM STAND UP COMEDIAN) WBC 3.8 3.8 - 9.9 K/cumm Comment:Testing performed by : [facility], [address] [place] [address] Hgb 9.0(L) 13.0 - 17.5 g/dL [facility] Comment:Testing performed by : [facility], [address] [place] [address] Hct 27.9(L) 38.9 - 50.3 % [facility] Comment:Testing performed by : [facility], [address] [place] [address] Plt 252 150 - 400 K/cumm [facility] Comment:Testing performed by : [facility], [address] [place] [address] MPV 6.8 6.8 - 10.4 fL [facility] Comment:Testing performed by : [facility], [address] [place] [address] RBC 3.40(L) 4.30 - 5.80 M/cumm [facility] Comment:Testing performed by : [facility], [address] [place] [address] MCV 82.0 81.3 - 96.4 fL [facility] Comment:Testing performed by : [facility], [address] [place] [address] MCH 26.6(L) 27.1 - 33.3 pg [facility] Comment:Testing performed by : [facility], [address] [place] [address] MCHC 32.4 32.3 - 35.7 g/dL [facility] Comment:Testing performed by : [facility], [address] [place] [address] RDW CV 17.7(H) 11.1 - 14.9 % [facility] Comment:Testing performed by : [facility], [address] [place] [phone] NRBC abs 0.00 0.00 - 0.01 K/cumm [facility] Comment:Testing performed by : [facility], [address] [place] [phone] Blood 10/03/2024 7:34 AM STAND UP COMEDIAN 10/03/2024 7:37 AM STAND UP COMEDIAN us Stan Meza MD LAB BLOOD ORDERABLES Yolette veronika Result [facility] Department [place] [address] * eGFR (09/25/2024 7:43 AM STAND UP COMEDIAN) eGFR >90 >=60 mL/min/1. 73 m2 Comment: [...] last reviewed 2021. Blood 09/25/2024 7:43 AM STAND UP COMEDIAN 09/25/2024 7:51 AM STAND UP COMEDIAN us Stan Meza MD LAB BLOOD ORDERABLES Yolette veronika Result [facility] Department [place] [address] * (ABNORMAL) Differential, auto (09/25/2024 7:43 AM STAND UP COMEDIAN) Neutrophil abs 4.1 1.5 - 6.5 K/cumm Comment:Testing performed by : [facility], [address] [place] [phone] Lymphocyte abs 0.8 0.8 - 3.3 K/cumm [facility] Comment:Testing performed by : [facility], [address] [place] [phone] Monocyte abs 0.9(H) 0.2 - 0.8 K/cumm [facility] Comment:Testing performed by : [facility], [address] [place] [phone] Eosinophil abs 0.1 0.0 - 0.5 K/cumm [facility] Comment:Testing performed by : [facility], [address] [place] [phone] Basophil abs 0.1 0.0 - 0.1 K/cumm [facility] Comment:Testing performed by : [facility], [address] [place] [phone] Neutrophil pct 69.0 % [facility] Comment: Interpretive Data Percent cell count reference ranges are not reported, since discordance with absolute values may lead to misinterpretation of CBC data. Current Interpretive Data was last revised on 2018. Testing performed by: [facility], [address] [place] [phone] Lymphocyte pct 13.4 % [facility] Comment: Interpretive Data Percent cell count reference ranges are not reported, since discordance with absolute values may lead to misinterpretation of CBC data. Current Interpretive Data was last revised on 2018. Testing performed by: [facility], [address] [place] [phone] Monocyte pct 15.3 % [facility] Comment: Interpretive Data Percent cell count reference ranges are not reported, since discordance with absolute values may lead to misinterpretation of CBC data. Current Interpretive Data was last revised on 2018. Testing performed by: [facility], [address] [place] [phone] Eosinophil pct 1.3 % [facility] Comment: Interpretive Data Percent cell count reference ranges are not reported, since discordance with absolute values may lead to misinterpretation of CBC data. Current Interpretive Data was last revised on 2018. Testing performed by: [facility], [address] [place] [phone] Basophil pct 1.0 % [facility] Comment: Interpretive Data Percent cell count reference ranges are not reported, since discordance with absolute values may lead to misinterpretation of CBC data. Current Interpretive Data was last revised on 2018. Testing performed by: [facility], [address] [place] [phone] Blood 09/25/2024 7:43 AM STAND UP COMEDIAN 09/25/2024 7:48 AM STAND UP COMEDIAN us Stan Meza MD LAB BLOOD ORDERABLES Yolette banda Result [facility] Department [place] [address] * (ABNORMAL) CBC with auto differential (09/25/2024 7:43 AM STAND UP COMEDIAN) WBC 5.9 3.8 - 9.9 K/cumm Comment:Testing performed by : [facility], [address] [place] [phone] Hgb 9.7(L) 13.0 - 17.5 g/dL [facility] Comment:Testing performed by : [facility], [address] [place] [phone] Hct 30.5(L) 38.9 - 50.3 % [facility] Comment:Testing performed by : [facility], [address] [place] [address] Plt 350 150 - 400 K/cumm [facility] Comment:Testing performed by : [facility], [address] [place] [address] MPV 6.5(L) 6.8 - 10.4 fL [facility] Comment:Testing performed by : [facility], [address] [place] [address] RBC 3.72(L) 4.30 - 5.80 M/cumm [facility] Comment:Testing performed by : [facility], [address] [place] [address] MCV 82.1 81.3 - 96.4 fL [facility] Comment:Testing performed by : [facility], [address] [place] [address] MCH 26.1(L) 27.1 - 33.3 pg [facility] Comment:Testing performed by : [facility], [address] [place] [address] MCHC 31.8(L) 32.3 - 35.7 g/dL [facility] Comment:Testing performed by : [facility], [address] [place] [address] RDW CV 17.1(H) 11.1 - 14.9 % [facility] Comment:Testing performed by : [facility], [address] [place] [address] NRBC abs 0.00 0.00 - 0.01 K/cumm [facility] Comment:Testing performed by : [facility], [address] [place] [address] Blood 09/25/2024 7:4 3 AM STAND UP COMEDIAN 09/25/2024 7:48 AM STAND UP COMEDIAN us Stan Meza MD LAB BLOOD ORDERABLES Yolette banda Result [facility] Department [place] [address] * (ABNORMAL) Comprehensive metabolic panel (09/25/2024 7:43 AM STAND UP COMEDIAN) Sodium 135 135 - 145 mmol/L Potassium, pl 4.2 3.3 - 4.9 mmol/L [facility] Chloride 98 97 - 110 mmol/L [facility] CO2 30 22 - 32 mmol/L [facility] Anion gap 7 2 - 15 mmol/L [facility] BUN 5(L) 6 - 25 mg/dL [facility] Creatinine 0.73(L) 0.80 - 1.30 mg/dL [facility] Glucose 99 70 - 199 mg/dL [facility] Comment: Interpretive Data Fasting glucose >/= [...] 2022. Calcium 9.3 8.5 - 10.3 mg/dL [facility] Bilirubin, total 0.2 0.1 - 1.2 mg/dL [facility] Protein, pl 6.6 6.5 - 8.5 g/dL [facility] Albumin 3.3(L) 3.5 - 5.0 g/dL [facility] Alk phos 172(H) 40 - 130 Units/L [facility] ALT 18 7 - 55 Units/L [facility] AST 17 10 - 50 Units/L [facility] Blood 09/25/2024 7:43 AM STAND UP COMEDIAN 09/25/2024 7:51 AM STAND UP COMEDIAN us Stan Meza MD LAB BLOOD ORDERABLES Yolette banda Result [facility] Department [place] [address] * CT Body Outside Reference (09/17/2024 11:19 AM STAND UP COMEDIAN) Impressions [facility] - 09/17/2024 11:19 AM STAND UP COMEDIAN These images are for Reference purposes only and have not been reviewed by [facility]iology. There will be no report generated by a [facility] Radiologist. Narrative [facility] - 09/17/2024 11:19 AM STAND UP COMEDIAN EXAMINATION: Images For Reference Purposes Only us Stan Meza MD IMG CT PROCEDURES Final R esult [facility] from Last 3 Months Insurance [facility] Care Teams Booster Pump Oiler Relationship Specialty Start Date End Date Matthew Mccabe MD [address] [place] [address] PCP - General Family Medicine 05/13/24 Stan Meza MD [address] [facility] MEDICAL ONCOLOGY, [address] [place] [address] Medical Oncologist/[facility] Medical Oncology 06/28/24
--- OUTSIDE RECORDS SUMMARY | 2024-12-12 20:05 | XMS_ITS | Encounter Summary ---
Author Organization [facility] Healthcare Address [address] [place] [address] Care Team Providers Care Manager Drug Safety Name Role Phone Matthew Mccabe MD Primary Care Prov ider Stan Meza MD Unavailable [phone] Reason for Visit * Episode Based Medications (Routine) - Authorized Specialty Diagnoses / Procedures Referred By Contac t Referred To Contact Diagnoses Primary cancer of left lower lobe of lung (HCC) Hypokalemia Stan Meza MD [address] [place] [address] Phone: tel: fax: [facility] [address] [facility] [address] [place] [address] Referral ID Status Reason Start Date Expiration Date V isits Requested Visits Authorized [id number] Authorized 08/20/2024 02/06/2025 1 50 Encounter Details Date Type Department Care Team (Late st Contact Info) Description 09/25/2024 9:00 AM DYNAMICS AX CONSULTANT Infusion [facility] [address] [facility] [address] [place] [address] Primary cancer of left lower lobe of [...] on file Legal Sex Male 6:04 PM DYNAMICS AX CONSULTANT Gender Identity Not on file Sexual Orientation Not on file documented as of this encounter Progress Notes * Joann Olivares, LARRY - 09/25/2024 9:00 AM CST Oncology Nutrition [...] (215 lb 6.4 oz) Current BMI: 32.70 [place] body weight: 65.9 kg (145 lb 5.8 oz) Adjusted ideal body weight: 76.3 kg (168 lb 4.1 oz) Estimated Energy Needs: Based on: 92 kg Calories 2813-0934 kcal/day 20-25 kcal/kg Protein 92-110 g/day 1.0-1.2 g/kg Fluid 4434-9852 ml/day or Per MD 1 ml/kcal or [...] stimulants. RD to follow. Diet recall: some [place] food, one Ensure Intervention: Patient with poor [...] Joann Olivares MS, RD, LD Clinical Dietitian [phone] MICS AX CONSULTANT documented in this encounter Nursing Notes * Anusha Jimenez, ALYX - 09/25/2024 9:00 AM CST Oncology Nursing Note [facility] Josafat [place] is [...] Ambulatory Accompanied by: Self Discharged To: Home MICS AX CONSULTANT documented in this encounter Plan of [...] (rounded from 168.8 mg = 80 mg/m2 2.11 m2 Treatment Plan BSA from Recorded weight), intravenous, at 68 mL/hr, Administer over 30 Minutes, Once, On Mon09/25/24 at 1015, For 1 dose, Do NOT use a filter during administration. Irritant with vesicant potential. ADMINISTER BY SYRINGE PUMP ONLY - NOT IV PUSH.Indications:Primary cancer of left lower lobe of lung (HCC) New Bag 09/25/2024 10:14 AM DYNAMICS AX CONSULTANT 170 mg 68 mL/hr aprepitant (CINVANTI) injection 130 mg 130 mg, intravenous, at 540 mL/hr, Administer over 2 Minutes, Once, On Mon09/25/24 at 0915, For 1 dose, IV over 2 minutes; avoid shaking.Indications:Primary cancer of left lower lobe of lung (HCC) Given 09/25/2024 8:55 AM DYNAMICS AX CONSULTANT 130 mg 540 mL/hr CARBOplatin (PARAPLATIN) 600 mg in sodium chloride 0.9% 250 mL IVPB (By AUC) 600 mg (Target AUC = 4), intravenous, at 670 mL/hr, Administer over 30 Minutes, Once, On Mon09/25/24 at 1045, For 1 dose, IrritantIndications:Primary cancer of left lower lobe of lung (HCC) New Bag 09/25/2024 10:57 AM DYNAMICS AX CONSULTANT 600 mg 670 mL/hr dexAMETHasone (DECADRON) preservative free solution 10 mg 10 mg, intravenous, Administer over 2 Minutes, Once, On Mon09/25/24 at 0915, For 1 doseIndications:Primary cancer of left lower lobe of lung (HCC) Given 09/25/2024 8:55 AM DYNAMICS AX CONSULTANT 10 mg palonosetron (ALOXI) injection 250 mcg 250 mcg (0.25 mg), intravenous, Once, On Mon09/25/24 at 0915, For 1 dose, For IV push, administer over 30 seconds.Indications:Primary cancer of left lower lobe of lung (HCC) Given 09/25/2024 8:55 AM DYNAMICS AX CONSULTANT 250 mcg pembrolizumab (KEYTRUDA) 200 mg in sodium chloride 0.9% 100 mL 200 mg, intravenous, at 236 mL/hr, Administer over 30 Minutes, Once, On Mon09/25/24 at 0945, For 1 dose, Use 0.2-5 micron filterIndications:Primary cancer of left lower lobe of lung (HCC) New Bag 09/25/2024 9:36 AM DYNAMICS AX CONSULTANT 200 mg 236 mL/hr documented in this encounter Orders Nursing Count Last Ordered Date First Orde red Date ONCBCN NURSING COMMUNICATION [id number] 1 1 11/25/2023 ONCBCN TREATMENT PARAMETERS 18 1 09/25/2024 Appointment Requests Count Last Ordered Date Fi rst Ordered Date ONCBCN RETURN CHEMO 3HRS 1 09/25/2024 documented in this encounter Care Teams Manager Drug Safety Relationship Specialty Start Date End Date Matthew Mccabe MD [address] [place] [address] PCP - General Family Medicine 05/13/24 Stan Meza MD [address] [facility] IM MEDICAL ONCOLOGY, [address] [place] [address] Medical Oncologist/Flat Lock Operator Medical Oncology 06/28/24 documented as of this encounter
--- OUTSIDE RECORDS SUMMARY | 2024-12-12 20:05 | XMS_ITS | Patient Health Record ---
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 Name Role Phone Radha Joseph Primary Care Provider Angelika Aponte Unavailable [phone] Lauren Ta Unavailable [phone] Meliza Beasley Unavailable Allergies Allergen (clinical drug ingredient) Drug/Non Drug Allergy documented on EMR Reaction Allergy Type Onset Date Status lisinopril Lisinopril Unknown Drug Allergy Activ e Penicillin Unknown Drug Allergy Active Reason For Referral No Information Medications Medication SIG (Take, Route, Frequency, Duration) Notes Start Date End Date Status LORazepam 0.5 MG 1 tablet at bedtime as needed Orally Once a day Active Eliquis 2.5 MG as directed Orally Active hydrOXYzine Pamoate 25 MG 1 capsule Orally three times daily for 30 days As needed Active Betamethasone - as directed Ac tive busPIRone HCl 10 MG 1 tablet Orally Twice a day for 30 days Active oxyCODONE HCl 5 MG 1 tablet as needed Orally every 6 hrs Active busPIRone HCl 10 MG TAKE 1 TABLET BY MOUTH TWICE A DAY FOR 30 DAYS for 30 Active Omeprazole 40 mg TAKE 1 CAPSULE BY MOUTH DAILY 30 MINUTES BEFORE BREAKFAST Orally Once a day for 30 days Active Senna 8.6 MG 2 tablets at bedtime as needed Orally Once a day Active Vitamin D3 50 MCG (1999) TAKE 1 CAPSU LE BY MOUTH EVERY DAY FOR 30 DAYS for 30 Active Ondansetron 4 MG 1 tablet on the tongue and allow to dissolve Orally Once a day Active Spironolactone 50 MG 1 tablet Orally Onc e a day for 30 day(s) Active Mirtazapine 7.5 MG 1 tablet at bedtime Orally Once a day for 30 days 11/11/2024 Active lamoTRIgine 100 MG 1 tablet Orally twice a day for 30 days Active Morphine Sulfate 30 MG 1 tablet as neede d Orally every 12 hours Active traMADol HCl 50 MG 1 tablet as needed Orally every 12 hours Not-Taking Atorvastatin Calcium 40 MG 1 tablet Oral ly Once a day for 30 day(s) Active Ziprasidone HCl 80 MG TAKE 1 CAPSULE BY MOUTH WITH FOOD TWICE A DAY Orally Twice a day for 30 days Active Alfuzosin HCl 10 MG as directed Orally Active hydroCHLOROthiazide 25 MG 1 tablet in e morning Orally Once a day for 30 day(s) Active Social History Tobacco Use: Social History [...] 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 Stress is when someone feels tense, nervous, anxious, or can\t sleep at night because their mind is troubled Not at all In the past year have you sp ent more than 2 nights in a row in a correction, senior living, nursing home center, or juvenile correctional facility? No Are you a refugee? No What country are you from? [place] Do you feel physically and e motionally safe where you currently live? Yes In the past year, have you b een afraid of your partner or ex-partner? No PRAPARE Score: 5 Tobacco Control (Standard) Question Answer Notes Tobacco use: Nonsmoker Section Notes: Clean 3 years from drugs. Has a cat named Zach. Likes to cook and bake. Clean 3 years from drugs. Has a cat named Zach. Likes to cook and bake. Clean 3 years from drugs. Has a cat named Zach. Likes to cook and bake. Clean 3 years from drugs. Has a cat named Zach. Likes to cook and bake. Problems Problem Type SNOMED Code ICD Code Onset Dates Problem Status W/U Status Risk Notes Problem Tobacco user (212944278) Nicotine dependence, unspecified, uncomplicated (F17.200) Active confirmed Problem Insomnia (879771069) Insomnia (G47.00) Active confirmed Problem Anxiety (47655136) Anxiety (F41.9) Active confirmed Problem Bipolar affective disorder, currently depressed, moderate (671117542) Bipolar 1 disorder, depressed, moderate (F31.32) Active confirmed Problem Depressed bipolar I disorder in remission (78857003) Bipolar 1 disorder, depressed, partial remission (F31.75) Active confirmed Problem Drug monitoring done (814959922) Therapeutic drug monitoring (Z51.81) Active confirmed Problem [id number] Bipolar I disorder, moderate, current or most recent episode depressed, in full remission (F31.76) Active confirmed Vital Signs Heart Rate 77 /min 04/24/2024 Respiratory Rate 16 /min 04/24/2024 Oximetry 96 % 04/24/2024 Blood pressure diastolic 82 mm Hg 04/24/2024 Height 71 in 04/24/2024 Blood pressure systolic 126 mm Hg 04/24/2024 Weight 232.2 lbs 04/24/2024 BMI 32.38 kg/m2 04/24/2024 Encounters Encounter Location Date Provider Diagnosis [address] [place] [address] 12/29/2023 Lauren Ta Bipolar 1 disorder, depressed, partial remission F31.75 and Anxiety F41.[address] [place] [address] 04/19/2024 Angelika Poolemark [address] [place] [address] 04/26/2024 Lauren Ta [facility] [address] [place] [address] 06/13/2024 Angelika Aponte [facility] [address] [address] 06/17/2024 Lauren Ta [facility] [address] [address] 08/02/2024 Angelika Poolen [facility] [address] [address] 08/22/2024 Radha Jake [facility] [address] [address] 08/26/2024 Meliza Beasley [facility] [address] [address] 09/12/2024 Radha Jake Insomnia G47.00 [facility] [address] [address] 09/24/2024 Radha Jake Anxiety F41.9 and Bipolar 1 disorder, depressed, moderate F31.32 [facility] [address] [address] 10/15/2024 Radha Jake [facility] [address] [address] 11/06/2024 Radha Jake [facility] [address] [address] 11/11/2024 Radha Jake [facility] [address] [address] 11/11/2024 Radha Jake Anxiety F41.9 and Bipolar 1 disorder, depressed, moderate F31.32 [facility] [address] [address] 12/10/2024 Radha Jake [address] [address] 12/11/2024 Radha Jake [address] [address] 04/24/2024 Lauren Keyon Bipolar 1 disorder, depressed, partial remission F31.75 and Anxiety F41.[address] [place] [address] 01/05/2024 Lauren Keyon Bipolar 1 disorder, depressed, partial remission F31.75 and Anxiety F41.[address] [address] 03/08/2024 Lauren Keyon Bipolar 1 disorder, depressed, partial remission F31.75 and Anxiety F41.[address] [place] [address] 07/17/2024 Lauren Ta Nicotine dependence, unspecified, uncomplicated F17.200 ; Bipolar 1 disorder, depressed, partial remission F31.75 and Anxiety F41.9 [facility] [address] [address] 08/26/2024 Radha Jake Bipolar 1 disorder, depressed, moderate F31.32 ; Insomnia G47.00 and Anxiety F41.9 [facility] [address] [address] 09/24/2024 Radha Jake Insomnia G47.00 ; Bipolar 1 disorder, depressed, moderate F31.32 and Anxiety F41.9 [facility] [address] [address] 10/15/2024 Radha Jake Anxiety F41.9 and Bipolar 1 disorder, depressed, moderate F31.32 [facility] [address] [address] 11/11/2024 Radha Jake Insomnia G47.00 ; Bipolar 1 disorder, depressed, moderate F31.32 and Anxiety F41.9 Assessments Encounter Date Diagnosis (ICD Code) Assessment [...] side effects or need for dosage change. 09/24/2024 Anxiety (ICD-10 - F41.9) 09/12/2024 Insomnia (ICD-10 - G47.00) 08/26/2024 Insomnia (ICD-10 - G47.00) Continue mirtazapine. Take as prescribed. Reviewed purpose - reduce anxiety, improve sleep, decrease depression, and increase appetite; benefits - reduce anxiety, improve sleep, decrease depression, and increase appetite; and risks - including increased appetite, weight gain, increased thoughts of suicidality, and prompting manic episodes in some individuals. Call for problems with medication, side effects or need for dosage change 08/26/2024 Bipolar 1 disorder, depressed, moderate (ICD-10 - [...] mg daily and titrate up as tolerated. Continue Ziprasidone. Take as prescribed. Must take each dose with at least 350 calories of food. Reviewed purpose (mood stability and/or reduce hallucinations), benefits, and risks - including increase in blood sugar, cholesterol, weight, the potential for temporary or permanent movement disorders, and high fever, very rigid muscles, and rapid heartbeat - potentially fatal, sedation, and cardiac rhythm abnormalities. Should discuss with provider is suspected ; no medication can be guaranteed safe for a fetus. Call for problems with medication, side effects or need for dosage change 07/17/2024 Nicotine dependence, unspecified, uncomplicated (ICD-10 - F17.200) 04/24/2024 Bipolar 1 disorder, depressed, partial remission (ICD-10 - F31.75) Pt reports that he is doing well on current mediciaotn regimen and would like to continue current medication regimen at this time. Routine labs completed 09/2023. Pt denies SI/HI at this time. Moods are stable at this time. Ptis not needing refills at this time; pt has increased stress at this time due to health concenrs. Pt is having PET scan tomorrow 03/08/2024 Bipolar 1 disorder, depressed, partial remission (ICD-10 - F31.75) Pt reports that he is doing well on current mediciaotn regimen and would like to continue current medication regimen at this time. Routine labs completed 09/2023. Pt denies SI/HI at this time. Moods are stable at this time. 11/11/2024 Anxiety (ICD-10 - F41.9) 11/11/2024 Insomnia (ICD-10 - G47.00) Restart mirtazapine. Take as prescribed. Reviewed purpose - reduce anxiety, improve sleep, decrease depression, and increase appetite; benefits - reduce anxiety, improve sleep, decrease depression, and increase appetite; and risks - including increased appetite, weight gain, increased thoughts of suicidality, and prompting manic episodes in some individuals. Call for problems with medication, side effects or need for dosage change. 09/24/2024 Insomnia (ICD-10 - G47.00) 01/05/2024 Bipolar 1 disorder, depressed, partial remission (ICD-10 - F31.75) Pt reports that he is doing well on current mediciaotn regimen and would like to continue current medication regimen at this time. Routine labs completed 09/202312/29/2023 Bipolar 1 disorder, depressed, partial remission (ICD-10 - F31.75) 11/11/2024 Bipolar 1 disorder, depressed, moderate (ICD-10 [...] medication, side effects or need for dosage change Continue Ziprasidone. Take as prescribed. Must take each dose with at least 350 calories of food. Reviewed purpose (mood stability and/or reduce hallucinations), benefits, and risks - including increase in blood sugar, cholesterol, weight, the potential for temporary or permanent movement disorders, and high fever, very rigid muscles, and rapid heartbeat - potentially fatal, sedation, and cardiac rhythm abnormalities. Call for problems with medication, side effects or need for dosage change. 12/29/2023 Anxiety (ICD-10 - F41.9) 09/24/2024 Bipolar 1 [...] medication, side effects or need for dosage change Continue Ziprasidone. Take as prescribed. Must take each dose with at least 350 calories of food. Reviewed purpose (mood stability and/or reduce hallucinations), benefits, and risks - including increase in blood sugar, cholesterol, weight, the potential for temporary or permanent movement disorders, and high fever, very rigid muscles, and rapid heartbeat - potentially fatal, sedation, and cardiac rhythm abnormalities. Call for problems with medication, side effects or need for dosage change. 01/05/2024 Anxiety (ICD-10 - F41.9) Pt reports that his anxiety is much improved since Buspar was increased at last visit. Pt denies side effects to medications. Patient is seeing therapist at [facility]. 11/11/2024 Bipolar 1 disorder, depressed, moderate (ICD-10 - F31.32) 03/08/2024 Anxiety (ICD-10 - F41.9) Pt reports that his anxiety is under control at this time and he is tolerating medication well. Pt denies side effects to medications. Patient is seeing therapist at [facility]. 07/17/2024 Bipolar 1 disorder, depressed, partial remission (ICD-10 - F31.75) Pt reports that he has been having issues sleeping; will start Mirtazapine at bedtime. Risks/benefits/side effects of medication discussed with pt. Pt has failed Melatonin, Trazodone and Seroquel. Routine labs completed 09/2023. Pt denies SI/HI at this time. Pt reports some decreased moods at times due to recent lung cancer diagnosis; pt sees oncology tomorrow 04/24/2024 Anxiety (ICD-10 - F41.9) Pt reports that his anxiety is under control at this time and he is tolerating medication well. Pt denies side effects to medications. Patient is seeing therapist at [facility]. 08/26/2024 Anxiety (ICD-10 - F41.9) Continue hydroxyzine. Take as prescribed. Reviewed purpose (reduce anxiety and/or promote sleep), benefits, and risks - including sedation and dry mouth. Continue buspirone. Take as prescribed. Reviewed purpose - decrease anxiety, benefits, and risks - dizziness, headache, nervousness, sedation, excitement, nausea, and restlessness. Call for problems with medication, side effects or need for dosage change 09/24/2024 Bipolar 1 disorder, depressed, moderate (ICD-10 - F31.32) 07/17/2024 Anxiety (ICD-10 - F41.9) Pt reports that his anxiety is under control at this time and he is tolerating medication well. Pt denies side effects to medications. Patient is seeing therapist at [facility] in [place]. 11/11/2024 Anxiety (ICD-10 - F41.9) Continue hydroxyzine. Take as prescribed. Reviewed purpose (reduce anxiety and/or promote sleep), benefits, and risks - including sedation and dry mouth. Call for problems with medication, side effects or need for dosage change. Continue buspirone. Take as prescribed. Reviewed purpose - decrease anxiety, benefits, and risks - dizziness, headache, nervousness, sedation, excitement, nausea, and restlessness. Call for problems with medication, side effects or need for dosage change. 09/24/2024 Anxiety (ICD-10 - F41.9) Decrease hydroxyzine. Take as prescribed. Reviewed purpose (reduce anxiety and/or promote sleep), benefits, and risks - including sedation and dry mouth. Call for problems with medication, side effects or need for dosage change. Increase buspirone. Take as prescribed. Reviewed purpose - decrease anxiety, benefits, and risks - dizziness, headache, nervousness, sedation, excitement, nausea, and restlessness. Call for problems with medication, side effects or need for dosage change. 09/24/2024 Other May self-administer medications or be administered own oral medications per [facility] protocols. Provided informed consent with understanding of [...] benefit from an in person appointment. Plan: -Decrease Hydroxzine 100 mg to 1 tab daily x1 week, then D/C (pt prescribed Lorazepam from different provider) -Patient self D/C'd Mirtazapine, will not restart -Increase Buspirone to 10 mg BID -Continue Lamotrigine 100 mg BID -Continue Ziprasidone 80 mg BID w/ food -Follow up: 3 weeks [] Hard Rx handed to patient [] Rx phoned into pharmacy [x] Rx faxed/e-prescribed into pharmacy [x] PDMP Reviewed [] GeneSight Reviewed Encouraged by Radha Joseph [facility]- to: [] consider utilizing therapist/counselor/so cial worker/psychologist, referral given [x] continue with therapist/counselor/so cial worker/psychologist Psychoeducation: -Treatment options discussed in detail with patient/guardian verbalizing understanding of treatment rationales. -Side effects and benefits of all medications prescribed discussed at length between psychiatric prescribing provider and patient/guardian along with the risks associated of [id number] interactions, including but not limited to prescription [...] engaged in treatment plan with Radha Joseph [facility]-. -Perceiving complete understanding of rationale by patient/guardian and willingness to adhere to formulated plan of care by prescriber with patient/guardian buy-in, willingness to participate actively in plan of care and willing to take charge of own care. -Although geared for female patients, all patients/guardians are informed by prescribing provider of risks of medications that could potentially be taken by female/women within their marshall of influence and that women who use [...] a should occur, to consult with provider, ENTERPRISE CLOUD ARCHITECT and/or Nurse Bow Repairer Custom to determine if prescribed medications should or should not be continued. -Instructions regarding both the medical/pharmacologica l and non-pharmacologic aspects of the treatments employed [...] the importance of handling stress, was discussed. 04/24/2024 Other Discussed treat ment planDiscussed sleep hygiene and caffeine intakeReturn to clinic 4 weeksEncouraged counselingDiscussed treatment plan; patient is agreeable and accepting of treatment plan. Patient denies further questions or concerns at this time. The Patient/Guardian asked appropriate questions, appeared to understand the answers, and decided to accept the treatment and continue being followed.The Patient/Guardian is aware of the need to contact the office or return for an earlier appointment if any problems or concerns arise. May also contact the 24-hour crisis hotline ([facility]), refer to the closest emergency room or call 911 if new symptoms arise of existing symptoms worsen; the Patient/Guardian is aware that this would apply to symptoms such as: suicidal ideation, homicidal ideation, high risk behaviors, manic symptoms, psychotic symptoms, physical symptoms, or any other symptoms that may be dangerous to self or others. 01/05/2024 Other Discussed treat ment planDiscussed sleep hygiene and caffeine intakeReturn to clinic 4 weeksEncouraged counselingDiscussed treatment plan; patient is agreeable and accepting of treatment plan. Patient denies further questions or concerns at this time. The Patient/Guardian asked appropriate questions, appeared to understand the answers, and decided to accept the treatment and continue being followed.The Patient/Guardian is aware of the need to contact the office or return for an earlier appointment if any problems or concerns arise. May also contact the 24-hour crisis hotline ([facility]), refer to the closest emergency room or call 911 if new symptoms arise of existing symptoms worsen; the Patient/Guardian is aware that this would apply to symptoms such as: suicidal ideation, homicidal ideation, high risk behaviors, manic symptoms, psychotic symptoms, physical symptoms, or any other symptoms that may be dangerous to self or others 07/17/2024 Other Discussed treatment planDiscussed sleep hygiene and caffeine intakeReturn to clinic 4 weeksObtain lab work at next visit Encouraged counselingDiscussed treatment plan; patient is agreeable and accepting of treatment plan. Patient denies further questions or concerns at this time. The Patient/Guardian asked appropriate questions, appeared to understand the answers, and decided to accept the treatment and continue being followed.The Patient/Guardian is aware of the need to contact the office or return for an earlier appointment if any problems or concerns arise. May also contact the 24-hour crisis hotline ([facility]), refer to the closest emergency room or call 911 if new symptoms arise of existing symptoms worsen; the Patient/Guardian is aware that this would apply to symptoms such as: suicidal ideation, homicidal ideation, high risk behaviors, manic symptoms, psychotic symptoms, physical symptoms, or any other symptoms that may be dangerous to self or others. Patient made aware that this provider will be leaving [facility] as of 07/24/2024, and she will be transitioned to a new provider at that time. 03/08/2024 Other Discussed treat ment planDiscussed sleep hygiene and caffeine intakeReturn to clinic 4 weeksEncouraged counselingDiscussed treatment plan; patient is agreeable and accepting of treatment plan. Patient denies further questions or concerns at this time. The Patient/Guardian asked appropriate questions, appeared to understand the answers, and decided to accept the treatment and continue being followed.The Patient/Guardian is aware of the need to contact the office or return for an earlier appointment if any problems or concerns arise. May also contact the 24-hour crisis hotline ([facility]), refer to the closest emergency room or call 911 if new symptoms arise of existing symptoms worsen; the Patient/Guardian is aware that this would apply to symptoms such as: suicidal ideation, homicidal ideation, high risk behaviors, manic symptoms, psychotic symptoms, physical symptoms, or any other symptoms that may be dangerous to self or others. 10/15/2024 Other May self-administer medications or be administered own oral medications per [facility] protocols. Provided informed consent with understanding of [...] an in person appointment. Plan: -Provider called [facility] pharmacy to verify patient was taking medications correctly, they confirmed. No refills needed at this time. [facility] confirmed they will send out refill [...] [] GeneSight Reviewed Encouraged by Radha Joseph PMHNP-BC to: [] consider utilizing therapist/counselor/so cial worker/psychologist, referral given [x] continue with therapist/counselor/so cial worker/psychologist Psychoeducation: -Treatment options discussed in detail with patient/guardian verbalizing understanding of treatment rationales. -Side effects and benefits of all medications prescribed discussed at length between psychiatric prescribing provider and patient/guardian along with the risks associated of [id number] interactions, including but not limited to prescription [...] engaged in treatment plan with Radha Joseph [facility]. -Perceiving complete understanding of rationale by patient/guardian and willingness to adhere to formulated plan of care by prescriber with patient/guardian buy-in, willingness to participate actively in plan of care and willing to take charge of own care. -Although geared for female patients, all patients/guardians are informed by prescribing provider of risks of medications that could potentially be taken by female/women within their marshall of influence and that women who use [...] a should occur, to consult with provider, ENTERPRISE CLOUD ARCHITECT and/or Nurse Bow Repairer [employer] to determine if prescribed medications should or should not be continued. -Instructions regarding both the medical/pharmacologica l and non-pharmacologic aspects of the treatments employed [...] the importance of handling stress, was discussed. 08/26/2024 Other May self-administer medications or be administered own oral medications per [facility] protocols. Provided informed consent with understanding of side effects, adverse effects, risks and benefits as well as alternative treatments as previously discussed and with the above recommended medications & other aspects of the treatment program. Agrees to return sooner if symptoms worsen or suicidal or homicidal ideations occur. Plan: -Patient was advised he needed annual lab work done, stated he gets weekly lab work done with his oncologist, refused to come into our offices to get additional blood work done, he agreed to have his oncologist send over the most recent labs. -Continue Hydroxyzine 100 mg TID PRN -Continue Lamotrigine 100 mg BID -Continue Ziprasidone 80 mg BID w/ food once daily -Continue Mirtazapine 7.5 mg 1 tablet at bedtime daily -Continue Buspirone 7.5 mg BID -Follow up: 2 to 4 weeks [] Hard Rx handed to patient [] Rx phoned into pharmacy [x] Rx faxed/e-prescribed into pharmacy [x] PDMP Reviewed [] GeneSight Reviewed Encouraged by Radha Joseph [facility] to: [] consider utilizing therapist/counselor/so cial worker/psychologist, referral given [x] continue with therapist/counselor/so cial worker/psychologist Psychoeducation: -Treatment options discussed in detail with patient/guardian verbalizing understanding of treatment rationales. -Side effects and benefits of all medications prescribed discussed at length between psychiatric prescribing provider and patient/guardian along with the risks associated of iyao-xr-cmbg interactions, including but not limited to prescription [...] engaged in [facility] with [facility] -Perceiving complete understanding of rationale by patient/guardian and willingness to adhere to formulated plan of care by prescriber with patient/guardian buy-in, willingness to participate actively in plan of care and willing to take charge of own care. -Although geared for female patients, all patients/guardians are informed by prescribing provider of risks of medications that could potentially be taken by female/women within their marshall of influence and that women who use [...] a should occur, to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
--- OUTSIDE RECORDS SUMMARY | 2024-12-12 20:05 | XMS_ITS ---
Author Organization [facility] Address [address] [place] [address] Care Team Providers Care Associate Theatre Professor Name Role Phone Matthew Mccabe MD Primary Care Prov ider Stan Meza MD Unavailable [phone] Active Problems Problem Noted Date Diagnosed Date Hypokalemia 11/14/2024 Metastasis to bone (CMS/HCC) 11/06/2024 Cancer related pain 08/15/2024 Prophylaxis for chemotherapy-induced neutropenia 08/01/2024 Primary cancer of left lower lobe of lung 2023 Cancer Staging:Clinical:Stage IVB(pM1c) - Unsigned Localized enlarged lymph nodes 05/28/2024 Hilar mass 05/28/2024 Current Oncology Plans Hydration Therapy Plan* Plan Start Date:12/05/2024 Plan Provider:Stan Meza MD Linked Problems Primary cancer of left lower lobe of lung (HCC) Treatment Medications No medications scheduled. IV Maintenance Therapy Plan* Plan Start Date:10/03/2024 [...] 1 , Cycle 4 - Planned for 12/26/2024) Next Day (Day 8, Cycle 4 - Planned for 01/02/2025) albumin-bound PACLItaxel (ABRAXANE)albumin-bound PACLItaxel (ABRAXANE) 5 mg/mLCARBOplatin [...] (PARAPLATIN)p embrolizumab (KEYTRUDA)PEM Etrexed (ALIMTA) Provider Discretion Victoriano castillo, MD Stan 1 of 24 cycles started Specialty Infusion [...] Dose Automatic Entry Manual Entr y DLP 1,836.9 mGycm 1,836.9 mGycm 0 mGycm
--- OUTSIDE RECORDS SUMMARY | 2024-12-12 20:05 | XMS_ITS | Clinical Summary ---
Author Organization [facility] Address [address] [place] [address] Phone Care Team Providers Care Brand Activation Manager Name Role Phone SADIE JACK MD Unavailable [...] On 0 10:36AM By PAUL DAVIS-ANAYA ; [facility] Gabapentin 600 MG Oral Tablet 05/26/2020 Provider: PAUL MAJANO Diagnosis: Radiculopathy, l umbar region TAKE 1 TABLET BY MOUTH THREE TIMES DAILY. Last Documented On 0 2:54PM By PAUL NUNEZ ; [facility] Triamcinolone Acetonide 0.1% External Cream 10/07/2019 Provider: Diagnosis: Last Documented On 9 11:28AM By Faye MEJÍA ; [facility] Spironolactone 50 MG Oral Tablet 10/07/2019 Provider : Diagnosis: Last Documented On 9 11:27AM By Faye MEJÍA ; [facility] Omeprazole 40 MG Oral Capsule Delayed Release 10/07/20 Provider: Diagnosis: Last Documented On 9 11:27AM By Faye MEJÍA ; [facility] Ibuprofen 600 MG Oral Tablet 10/07/2019 Provider: Diagnosis: Last Documented On 9 11:27AM By Faye MEJÍA ; [facility] hydrOXYzine Pamoate 50 MG Oral Capsule 10/07/2019 Pr ovider: Diagnosis: Last Documented On 9 11:26AM By Faye MEJÍA ; [facility] Carvedilol 25 MG Oral Tablet 10/07/2019 Provider: Diagnosis: Last Documented On 9 11:26AM By Faye MEJÍA ; [facility] Medications Administered Includes: Administered [...] Active Last Documented On 0 8:29AM ; [facility] Lisinopril Allergy 10/07/2019 Active Last Documented On 0 8:29AM ; [facility] Insurance Includes: Active Insurance Policies Plan Name Member ID Group # Subscriber Relationship Effect jeaninne Dates - [facility] [id number] RYLEE GRAY Self Clinical Notes Includes: Clinical Notes from this encounter No Clinical Notes Recorded
--- OUTSIDE RECORDS SUMMARY | 2024-12-12 20:06 | XMS_ITS | Clinical Summary ---
Author Organization [facility] Address [address], [facility] [address] [place] [address] Phone Care Team Providers Care Sand Cutter Operator Name Role Phone Patito Randalli Israel POCKETBOOK MAKER, ERP IMPLEMENTATION CONSULTANT Unavailable Allergies Active Allergy Reactions Criticality Noted [...] Comments Blood Pressure 142/74 11/06/2017 2:41 PM LEATHER BELT SHAPER Pulse 77 11/06/2017 2:41 PM LEATHER BELT SHAPER Temperature 36.1 C (97 F) 11/06/2017 2:41 PM LEATHER BELT SHAPER Respiratory Rate 18 11/06/2017 2:41 PM LEATHER BELT SHAPER Oxygen Saturation 99% 11/06/2017 8:00 AM LEATHER BELT SHAPER Inhaled Oxygen Concentration - - Weight 113.4 kg (250 lb) 11/03/2017 6:25 PM LEATHER BELT SHAPER Height 175.3 cm (5' 9 ) 11/03/2017 6:25 PM LEATHER BELT SHAPER Body Mass Index 36.92 11/03/2017 6:25 PM LEATHER BELT SHAPER Plan of Treatment Health Maintenance Due Date [...] years 1-dose series) 2021 Influenza Immunization (#1) 2024 10/0 03/2020, 07/17/2017, 09/29/2016, Additional history exists SARS-COV-2 Immunization [...] CHEST W/O CONTRAST STAT 11/03/2017 11:30 PM LEATHER BELT SHAPER from Last 3 Months or Most Recently Relevant to Health Maintenance Results * CT CHEST W/O CONTRAST (11/03/2017 11:30 PM LEATHER BELT SHAPER) Anatomical Region Laterality Modality Chest N/A Computed Tomogra phy 11/04/2017 12:2 4 AM LEATHER BELT SHAPER Impressions 11/04/2017 12:28 AM LEATHER BELT SHAPER IMPRESSION: 1. A few nonspecific scattered ground-glass infiltrates in the bilateral upper lobes, which may represent pneumonia. 2. Mild paraseptal emphysema. Automated exposure control was used as a dose optimization technique for this examination. Narrative 11/04/2017 12:28 AM LEATHER BELT SHAPER EXAMINATION: CT chest without contrast HISTORY: Cough, [...] AM: Ellyn Epperson M.D. Radiologist YUMIKO:yumiko APO Procedure Note Sukh [...] Recently Relevant to Health Maintenance Insurance MEDICAID [facility] Advance Directives * Full Code (Latest Code Status on File) Date Activated Date Inactivated Comments 11/04/2017 9:36 AM 11/06/2017 6:27 PM CPR-Full Treat ment: FULL ARREST: Attempt Resuscitation/CPR wit intubation and mechanical ventilation. PRE-ARREST: Use entire range of life support measures to stabilize the patient. Care Teams Sand Cutter Operator Relationship Specialty Start Date End Date Montserrat Randall APRN, ERP IMPLEMENTATION CONSULTANT Nurse Practitioner Advanced Practice Nurse 10/21/16
--- OUTSIDE RECORDS SUMMARY | 2024-12-12 20:06 | XMS_ITS | Encounter Summary ---
Author Organization [facility] Address [address] [place] [address] Care Team Providers Care Director Of Community Center Name Role Phone Monica Tellez LABOR AND DELIVERY REGISTERED NURSE-DATA ENTRY OPERATOR Primary Care Provi cristobal Ian Pollock MD Primary Care Provider [phone] Ian Pollock MD Primary Care Provider [phone] Ian Pollock MD Primary Care Provider [phone] Ian Pollock MD Primary Care Provider [phone] Ian Pollock MD Primary Care Provider [phone] Katina Casiano DO Unavailable [phone] Xavi ACOSTA MD, Fred R Primary Care Provider + Katina Casiano DO Unavailable [phone] Tracey Ang PA Unavailable [phone] Belkis Angel LABOR AND DELIVERY REGISTERED NURSE-DATA ENTRY OPERATOR Primary Care Provider + Natalie Baum Primary Care Provider [phone] Reason for Visit * Reason Onset Date Comments Results 10/25/2019 Encounter Details Date Type Department Care Team (Late st Contact Info) Description 10/25/2019 Telephone [facility] [address] [address] Monica Tellez LABOR AND DELIVERY REGISTERED NURSE-DATA ENTRY OPERATOR [address] [place] [address] Results Social History Tobacco Use Types Packs/Day [...] Janice Conn RN - 10/31/2019 12:18 PM BATTERY TESTER AND REPAIRER Pt calling again stating that Lashon Rosalinda had sent him for a Cardiac Ultrasound. This TNs. Found HCTTE 2D w/Con Doppler/color CMPT Done 10/25/2019, in chart under Cardiac tab, Faxed to [facility]. Pt request callback: [phone]. Pt seems very nervous about his results. ERY TESTER AND REPAIRER * Telephone Encounter - Monica Tellez APRN-CNP - 10/25/2019 1:56 PM BATTERY TESTER AND REPAIRER Please find out what ultrasound he had. Have not ultrasound results. Who would have ordered this and where?? [facility] ERY TESTER AND REPAIRER * Telephone Encounter - Maria Isabel William RN - 10/25/2019 1:47 PM CST Patient nervous about ultrasound result Please call [phone] ERY TESTER AND REPAIRER documented in this encounter Plan of [...] in this encounter Care Teams Director Of Community Center Relationship Specialty Start Date End Date Monica Tellez APRN-DATA ENTRY OPERATOR PCP - General 07/03/19 11/13/19 Ian Pollock MD PCP - General 11/14/19 12/12/19 Ian Pollock MD PCP - General 12/13/19 05/25/20 Ian Pollock MD PCP - General 05/26/20 06/15/20 Ian Pollock MD [address] [facility] [place] [address] PCP - General 07/31/20 08/20/20 Ian Pollock MD [address] [facility] [place] [address] PCP - General 08/21/20 05/29/23 Jameel Hurley III, MD [address] [place] [address] PCP - General Internal Medicine 06/05/23 08/28/23 Belkis Angel, LABOR AND DELIVERY REGISTERED NURSE-DATA ENTRY OPERATOR [address] [place] [address] PCP - General Nurse Practitioner 08/29/23 05/05/24 Natalie Baum [address] [place] [address] PCP - General 05/06/24 Katina Casiano DO [address] OF GEN INTERNAL MEDICINE [place], [place] Resident - PCP Internal Medicine 08/10/22 05/29/23 Katina Casiano DO [address] [facility] INTERNAL MEDICINE [place], [place] Hospitalist 06/05/23 Tracey Ang PA [address] [facility] [address] [place] [address] Physician Furnace Mason 08/15/23 documented as of this encounter
--- OUTSIDE RECORDS SUMMARY | 2024-12-12 20:06 | XMS_ITS | Encounter Summary ---
Author Organization [facility] Address [address] [place] [place] [address] Care Team Providers Care Deburr Operator Name Role Phone Ian Pollock MD Primary Care Provider Ian Pollock MD Primary Care Provider [phone] Ian Pollock MD Primary Care Provider [phone] Ian Pollock MD Primary Care Provider [phone] Katina Casiano DO Unavailable [phone] Xavi ACOSTA MD, Fred R Primary Care Provider + Katina Casiano DO Unavailable [phone] Tracey Ang PA Unavailable [phone] Belkis Angel SAP TECHNICAL DEVELOPER-LETTER OF CREDIT DOCUMENT EXAMINER Primary Care Provider + Natalie Baum Primary Care Provider [phone] Reason for Visit * Reason Onset Date Comments Referral 12/13/2019 Encounter Details Date Type Department Care Team (Late st Contact Info) Description 12/13/2019 Telephone [facility] [address] [place] [address] Monica Tellez, SAP TECHNICAL DEVELOPER-LETTER OF CREDIT DOCUMENT EXAMINER [address] [place] [address] Referral Social History Tobacco Use [...] Janice Conn RN - 12/19/2019 8:51 AM BAKED GOODS STOCK CLERK Was able to speak with patient regarding his directive to call his insurance company for them to give him a listing of the Cardiologists in [place], and also tell him that he would be given to another PCP because Dr. Pollock will be going to very part-time in March, but patient apprised this TNs thathe had called for a more current appointment, and is to see Dr. Pollock today. D GOODS STOCK CLERK * Telephone Encounter - Monica Tellez APRN-CNP - 12/16/2019 4:30 PM BAKED GOODS STOCK CLERK [place] land[place] gas [place]. He will need to call his insurance company for list of [place] landfill gas technician. His appt was to be changed from Dr Pollock to a resident since Dr Pollock will be going to very automotive parts counter assistant in March and should not have new patients. [facility] D[facility]az D GOODS STOCK CLERK * Telephone Encounter - Janice Conn RN - 12/13/2019 10:45 AM BAKED GOODS STOCK CLERK Routing message to Dr Pollock D GOODS STOCK CLERK * Telephone Encounter - Meenu Hidalgo - 12/13/2019 10:36 AM CST PT is calling and wanting to be referred to a landfill gas technician on the [place] side. PT stats it wouldbe more convenient and easier for the med cab. PT CBN:[phone] D GOODS STOCK CLERK documented in this encounter Plan of [...] on filedocumented in this encounter Care Teams Deburr Operator Relationship Specialty Start Date End Date Ian Pollock MD PCP - General 12/13/19 05/25/20 aIn Pollock MD PCP - General 05/26/20 06/15/20 Ian Pollock MD [address] [facility] [place] [address] PCP - General 07/31/20 08/20/20 Ian Pollock MD [address] [facility] [place] [address] PCP - General 08/21/20 05/29/23 Jameel Hurley III, MD [address] [place] [id number] PCP - General Internal Medicine 06/05/23 08/28/23 Belkis Angel, SAP TECHNICAL DEVELOPER-LETTER OF CREDIT DOCUMENT EXAMINER [address] [place] [address] PCP - General Nurse Practitioner 08/29/23 05/05/24 Natalie Baum [address] [place] [address] PCP - General 05/06/24 Katina Casiano DO [address] OF [place] INTERNAL MEDICINE [place], [place] Resident - PCP Internal Medicine 08/10/22 05/29/23 Katina Casiano DO [address] [facility] INTER[facility] MEDIC[place], [place] Hospitalist 06/05/23 Tracey Ang PA [address] [facility] [address] [place] [address] Physician Women'S Studies Lecturer 08/15/23 documented as of this encounter
--- OUTSIDE RECORDS SUMMARY | 2024-12-12 20:06 | XMS_ITS | Encounter Summary ---
Author Organization [facility] Address [address] [place] [address] Care Team Providers Care Operational Trainer Name Role Phone Monica Tellez OFFICE EXECUTIVE-MARKETING INFORMATION MANAGER Primary Care Provi cristobal Ian Pollock MD Primary Care Provider [phone] Ian Pollock MD Primary Care Provider [phone] Ian Pollock MD Primary Care Provider [phone] Ian Pollock MD Primary Care Provider [phone] Ina Pollock MD Primary Care Provider [phone] Katina Casiano DO Unavailable [phone] Xavi ACOSTA MD, Fred R Primary Care Provider + Katina Casiano DO Unavailable [phone] Tracey Ang PA Unavailable [phone] Belkis Angel OFFICE EXECUTIVE-MARKETING INFORMATION MANAGER Primary Care Provider + Natalie Baum Primary Care Provider [phone] Reason for Visit * Reason Onset Date Comments Appointment 09/11/2019 Encounter Details Date Type Department Care Team (Late st Contact Info) Description 09/11/2019 Telephone [facility] [address] [address] Monica Tellez OFFICE EXECUTIVE-MARKETING INFORMATION MANAGER [address] [place] [address] Appointment Social History Tobacco Use Types Packs/Day [...] disconnected Called again warm transfer to scheduling GER INTEL documented in this encounter Plan of Treatment [...] on filedocumented in this encounter Care Teams Operational Trainer Relationship Specialty Start Date End Date Monica Tellez, OFFICE EXECUTIVE-MARKETING INFORMATION MANAGER PCP - General 07/03/19 11/13/19 Ian Pollock MD PCP - General 11/14/19 12/12/19 Ian Pollock MD PCP - General 12/13/19 05/25/20 Ian Pollock MD PCP - General 05/26/20 06/15/20 Ian Pollock MD [address] [place] [address] PCP - General 07/31/20 08/20/20 Ian Pollock MD [address] [place] [address] PCP - General 08/21/20 05/29/23 Jameel Hurley III, MD [address] [facility] [place] [address] PCP - General Internal Medicine 06/05/23 08/28/23 Belkis Angel, OFFICE EXECUTIVE-MARKETING INFORMATION MANAGER [address] [address] PCP - General Nurse Practitioner 08/29/23 05/05/24 Natalie Baum [address] [place] [address] PCP - General 05/06/24 Katina Casiano DO [address] [facility] [address] DIV OF GEN INTERNAL MEDICINE [place], [place] Resident - PCP Internal Medicine 08/10/22 05/29/23 Katina Casiano DO [address] [facility] [address] [facility] OF [facility] INTERNAL MEDICINE [place], [place] Hospitalist 06/05/23 Tracey Ang PA [address] [facility] [address] [place] [address] Physician Coal Wheeler 08/15/23 documented as of this encounter
--- OUTSIDE RECORDS SUMMARY | 2024-12-12 20:06 | XMS_ITS | Encounter Summary ---
Author Organization [facility] Address [address] [facility] [place] [address] Care Team Providers Care Outcomes Manager Name Role Phone Ian Pollock MD Primary Care Provider [phone] Ian Pollock MD Primary Care Provider [phone] Ian Pollock MD Primary Care Provider [phone] Ian Pollock MD Primary Care Provider [phone] Ian Pollock MD Primary Care Provider [phone] Katina Casiano DO Unavailable [phone] Xavi ACOSTA MD, Jameel R Primary Care Provider + Katina Casiano DO Unavailable [phone] Tracey Ang PA Unavailable [phone] Belkis Angel NETWORK CONTROL OPERATOR-REHAB NURSE Primary Care Provider + Natalie Baum Primary Care Provider [phone] Reason for Visit * Reason Onset Date Comments General 12/02/2019 Encounter Details Date Type Department Care Team (Late st Contact Info) Description 12/02/2019 Telephone [facility] [address] [place] [address] Ian Pollock MD [address] [place] [address] General Social History Tobacco Use Types Packs/Day [...] vulgar language and then abruptlydisconnect line. CB# [phone] Routed to provider for further review M SHOVEL ENGINEER documented in this encounter Plan of [...] on filedocumented in this encounter Care Teams Outcomes Manager Relationship Specialty Start Date End Date Ian Pollock MD PCP - General 11/14/19 12/12/19 Ian Pollock MD PCP - General 12/13/19 05/25/20 Ian Pollock MD PCP - General 05/26/20 06/15/20 Ian Pollock MD [address] [facility] [place] [address] PCP - General 07/31/20 08/20/20 Ian Pollock MD [address] [facility] [place] [address] PCP - General 08/21/20 05/29/23 Jameel Hurley III, MD [address] [facility] [place] [address] PCP - General Internal Medicine 06/05/23 08/28/23 Belkis Angel, NETWORK CONTROL OPERATOR-REHAB NURSE [address] [address] PCP - General Nurse Practitioner 08/29/23 05/05/24 Natalie Baum [address] [place] [address] PCP - General 05/06/24 Katina Casiano DO [address] [facility] [address] DIV OF [facility] INTERNAL MEDICINE [place], [place] Resident - PCP Internal Medicine 08/10/22 05/29/23 Katina Casiano DO [address] [facility] [address] OF [facility] INTERNAL MEDICINE [place], [place] Hospitalist 06/05/23 Tracey Ang PA [address] [facility] [address] [place] [address] Physician Pumper Gager 08/15/23 documented as of this encounter
--- OUTSIDE RECORDS SUMMARY | 2024-12-12 20:06 | XMS_ITS | Continuity of Care Document ---
Author Organization [facility] Address [address] [place] [address] Phone Care Team Providers Care Seafood Fisherman Name Role Phone Unavailable Unavailable Unavailable Medications [...] VST EST PT LOW TO MOD SEVERITY nooked [facility] , [address], [place], [place], [address], tel:[phone] Detention OTHER SPECFD COUNSELING 8 No Information nooked [facility] , [address], [place], [place], [address], [place] tel:[phone] [facility] No Information 8 No Information OFFICE CONSULT, 15 MIN, 3 RODRIGUEZ COMPS: PROB FOCUS HX; PROB FOCUS EXAM; [id number] , [address], [place], [place], [address], [place] tel:[phone] [facility] COUNSELING NOS 8 No Information HOME VST EST PT LOW TO MOD SEVERITY [facility] , [address], [place], [place], [address], [place] tel:[phone] Detention OTHER SPECFD COUNSELING 8 No Information HOME VST NEW PT HI SEVERITY [facility] , [address], [place], [place], [address], [place] tel:[phone] Detention DRUG ABUSE NEC-UNSPECDEPRES SIVE DISORDER NECHYPERTENSION NOS 8 No Information [id number] , [address], [place], [place], [address], [place] tel:[phone] [facility] DENTAL EXAMINATION 8 No Information Family [...]
--- OUTSIDE RECORDS SUMMARY | 2024-12-12 20:06 | XMS_ITS | Encounter Summary ---
Author Organization [facility] Address [address] [place] [address] Care Team Providers Care Helper Maintenance Cleaning Name Role Phone Monica Tellez WINE MASTER-ASSISTANT MANAGER QUALITY MANAGEMENT Primary Care Provi cristobal Ian Pollock MD Primary Care Provider [phone] Ian Pollock MD Primary Care Provider [phone] Ian Pollock MD Primary Care Provider [phone] Ian Pollock MD Primary Care Provider [phone] Ian Pollock MD Primary Care Provider [phone] Katina Casiano DO Unavailable [phone] Xavi ACOSTA MD, Fred R Primary Care Provider + Katina Casiano DO Unavailable [phone] Tracey Ang PA Unavailable [phone] Belkis Angel WINE MASTER-ASSISTANT MANAGER QUALITY MANAGEMENT Primary Care Provider + Natalie Baum Primary Care Provider [phone] Reason for Visit * Reason Onset Date Comments General 11/12/2019 Encounter Details Date Type Department Care Team (Late st Contact Info) Description 11/12/2019 Telephone [facility] Internal Medicine [address] [place] [address] Monica Tellez WINE MASTER-ASSISTANT MANAGER QUALITY MANAGEMENT [address] [place] [address] General Social History Tobacco Use Types Packs/Day [...] Monica Tellez APRN-CNP - 11/12/2019 2:57 PM PLATINUMSMITH Patient can be scheduled with other provider if he wants. He was upset that I told him to ask his pulmonary doctor to order low dose CT since pulmonary was the one who usually ordered this. MARISOL Díaz INUMSMITH * Telephone Encounter - Nadeem Hancock - 11/12/2019 1:07 PM CST Pt called to request to be released from the provider's care. Caller stated that the provider has done a couple of things to rub him the wrong way, and he would like another provider. Pt provided call back number [phone] Message routed to provider for review and assistance INUMSMITH documented in this encounter Plan of Treatment [...] on filedocumented in this encounter Care Teams Helper Maintenance Cleaning Relationship Specialty Start Date End Date Monica Tellez, WINE MASTER-ASSISTANT MANAGER QUALITY MANAGEMENT PCP - General 07/03/19 11/13/19 Ian Pollock MD PCP - General 11/14/19 12/12/19 Ian Pollock MD PCP - General 12/13/19 05/25/20 Ian Pollock MD PCP - General 05/26/20 06/15/20 Ian Pollock MD [address] DIV OF [facility] [place] [address] PCP - General 07/31/20 08/20/20 Ian Pollock MD [address] DIV OF GEN [place] [address] PCP - General 08/21/20 05/29/23 Jameel Hurley III, MD [address] DIV OF [facility] [place] [address] PCP - General Internal Medicine 06/05/23 08/28/23 Belkis Angel, WINE MASTER-ASSISTANT MANAGER QUALITY MANAGEMENT [address] [facility] 2nd [place] [address] PCP - General Nurse Practitioner 08/29/23 05/05/24 Natalie Baum [address] [place] [address] PCP - General 05/06/24 Katina Casiano DO [address] [facility] 2[address] DIV OF GEN INTERNAL MEDICINE [place], [place] Resident - PCP Internal Medicine 08/10/22 05/29/23 Katina Casiano DO [address] [facility] 2L DIV OF GEN INTERNAL MEDICINE [place], [place] Hospitalist 06/05/23 Tracey Ang PA [address] [facility] [address] [place] [address] Physician Earth Boring Machine Operator 08/15/23 documented as of this encounter
[2024-12-12 20:13] VITALS: O2SAT 100
[2024-12-12 20:47] LABS: Basophils Percent Auto 0.4 % (0.2-1.2); Eosinophils Absolute Auto 0.3 K/mm3 (0-0.3); Eosinophils Percent Auto 5.4 % (0-4.4); Hematocrit 32.6 % (42.0-52.0); Hemoglobin 10.6 g/dL (14.0-18.0); Immature Granulocyte Absolute 0.01 K/mm3 (0.00-0.031); Immature Granulocyte Percent A 0.2 % (0-0.5); Lymphocytes Absolute Auto 1.17 K/mm3 (0.9-3.2); Lymphocytes Percent Auto 21.8 % (18.3-44.2); Mean Corpuscular HGB Conc 32.5 g/dl (32-36); Mean Corpuscular Hemoglobin 29.3 pg (26-34); Mean Corpuscular Volume 90.1 fl (80-100); Mean Platelet Volume 9.2 fl (7.4-10.4); Monocytes Absolute Auto 0.5 K/mm3 (0.1-0.6); Monocytes Percent Auto 9.7 % (2.6-8.5); Neutrophils Absolute Auto 3.4 K/mm3 (1.3-6.7); Neutrophils Percent Auto 62.5 % (45.5-73.1); Platelet Count Result 202 k/mm3 (150-375); Red Blood Count 3.62 M/mm3 (4.6-6.20); Red Cell Distribution Width 19.5 % (11.5-14.5); White Blood Count 5.4 K/mm3 (4.5-10.0)
[2024-12-12 21:01] LABS: Alanine Aminotransferase 16 U/L (6-50); Albumin Level 3.9 g/dL (3.5-5.1); Alkaline Phosphatase 120 U/L (38-126); Anion Gap 6 mmol/L (4-12); Aspartate Amino Transferase 19 U/L (17-59); Bilirubin,Total 0.5 mg/dL (0.2-1.3); Blood Urea Nitrogen 3 mg/dL (9-20); Calcium 9.6 mg/dL (8.4-10.2); Carbon Dioxide 28 mmol/L (22-30); Chloride 95 mmol/L (98-107); Estimated Glomerular Filt Rate > 60; Glucose 100 mg/dL (65-110); Potassium 3.7 mmol/L (3.4-5.0); Sodium 129 mmol/L (137-145)
[2024-12-12 22:42] VITALS: BP 149/97; PULSE 75; RESP 19; O2SAT 100
--- OUTSIDE RECORDS SUMMARY | 2024-12-12 23:42 | XMS_ITS | Encounter Summary ---
Author Organization [facility] Address [address] [place] [address] Care Team Providers Care Certified Technician Name Role Phone Ian Pollock MD Primary Care Provider Katina Casiano DO Unavailable [phone] Xavi ACOSTA MD, Jameel Gaviria Primary Care Provider + Katina Casiano DO Unavailable [phone] Tracey Ang PA Unavailable [phone] Belkis Angel ENVIRONMENTAL FIELD SERVICES TECHNICIAN-CUT OFF SAW OPERATOR Primary Care Provider + Natalie Baum Primary Care Provider [phone] Reason for Visit * Reason Onset Date Comments Letter 12/02/2020 Encounter Details Date Type Department Care Team (Late st Contact Info) Description 12/02/2020 Telephone [facility] Pulmonary, Critical Care and Sleep Medicine [address] [place] [address] Agnieszka Haas MD [address] [place] [address] Letter Social History Tobacco Use Types Packs/Day [...] COVID-19? Unable to assess 11/18/2020 1:41 PM USER ACCEPTANCE TESTER documented as of this encounter Functional Status [...] vaccine sooner Thanks. Patient Call Back number: [phone] ACCEPTANCE TESTER documented in this encounter Plan of [...] on filedocumented in this encounter Care Teams Certified Technician Relationship Specialty Start Date End Date Ian Pollock MD [address] [place] [address] PCP - General 08/21/20 05/29/23 Jameel Hurley III, MD [address] [place] [address] PCP - General Internal Medicine 06/05/23 08/28/23 Belkis Angel APRN-CUT OFF SAW OPERATOR [address] [place] [address] PCP - General Nurse Practitioner 08/29/23 05/05/24 Natalie Baum [address] [place] [address] PCP - General 05/06/24 Katina Casiano DO [address] DIV OF GEN INTERNAL MEDICINE [place], [place] Resident - PCP Internal Medicine 08/10/22 05/29/23 Katina Casiano DO [address] [facility] [address] DIV OF GEN INTERNAL MEDICINE [place], [place] Hospitalist 06/05/23 Tracey Ang PA [address] [facility] [address] [place] [address] Physician Epic Beacon Analyst 08/15/23 documented as of this encounter
--- OUTSIDE RECORDS SUMMARY | 2024-12-12 23:42 | XMS_ITS | Encounter Summary ---
Author Organization [facility] Address [address] [facility] [place] [address] Care Team Providers Care Insulation Cutter Name Role Phone Ian Pollock MD Primary Care Provider [phone] Katina Casiano DO Unavailable [phone] Xavi ACOSTA MD, Jameel Gaviria Primary Care Provider + Katina Casiano DO Unavailable [phone] Tracey Ang PA Unavailable [phone] Belkis Angel QUALITY ASSOCIATE-AEROSPACE ASSEMBLER Primary Care Provider + Natalie Baum Primary Care Provider [phone] Encounter Details Date Type Department Care Team (Late st Contact Info) Description 04/22/2021 Telephone [facility] [address] [place] [address] eKzia Hollis MD [address] OF PULMONARY/[place] [address] Social History Tobacco Use Types [...] stay with Dr. Hollis? Call Back #: [phone] documented in this encounter Plan of Treatment [...] filedocumented in this encounter Care Teams Insulation Cutter Relationship Specialty Start Date End Date Ian Pollock MD [address] DIV OF [place] [address] PCP - General 08/21/20 05/29/23 Jameel Hurley III, MD [address] DIV [place] [place] [address] PCP - General Internal Medicine 06/05/23 08/28/23 Belkis Angel APRN-AEROSPACE ASSEMBLER [address] [place] [address] PCP - General Nurse Practitioner 08/29/23 05/05/24 Natalie Baum [address] [place] [address] PCP - General 05/06/24 Katina Casiano DO [address] [facility] 2[address] DIV OF GEN INTERNAL MEDICINE [place], [place] Resident - PCP Internal Medicine 08/10/22 05/29/23 Katina Casiano DO [address] [facility] [address] DIV OF GEN INTERNAL MEDICINE [place], [place] Hospitalist 06/05/23 Tracey Ang PA [address] [facility] [address] [place] [address] Physician Gore Inserter 08/15/23 documented as of this encounter
--- OUTSIDE RECORDS SUMMARY | 2024-12-12 23:42 | XMS_ITS | Clinical Summary ---
Author Organization [facility] Address [address] [place] [address] Care Team Providers Care Strategy Manager Name Role Phone Katina Casiano DO Unavailable [phone] Tracey Ang PA Unavailable [phone] Natalie Baum Primary Care Provider [phone] Source Comments [facility],non-owned Affiliates and Associated Physician Practices is amultiple site organization consisting of ambulatory clinics and hospital sitesin [place], [place], [place] and [place]. This disclosure is being madepursuant to the Care Everywhere program and may not contain all information available regarding this patient. Last updated 18.[facility] Allergies Active Allergy Reactions Criticality Noted [...] MG/3ML) 0.083% nebulizer solutionIndicati ons:Centrilobula r emphysema (HCC),Asthma-[employer] D overlap syndrome (HCC) Inhale 2.5 (two [...] Active Symbicort 160-4.5 MCG/ACT inhalerIndicatio ns:Centrilobular emphysema (HCC),Asthma-[employer] D overlap syndrome (HCC) Inhale 2 (two) puffs by mouth once daily 10.2 g 3 08/29/2023 Active albuterol HFA (Proventil; Ventolin; Proair) 108 (90 Base) MCG/ACT inhalerIndicatio ns:Centrilobular emphysema (HCC),Asthma-[employer] D overlap syndrome (HCC) Inhale 2 (two) [...] 01/04/2023 Assessment & Plan (01/04/2023 2:27 PM JEWEL INSERTER): - sleep study pending Fatigue 01/04/2023 Assessment & Plan (01/04/2023 2:28 PM JEWEL INSERTER): - Check TSH - pending sleep study [...] 07/29/2022 Assessment & Plan (01/04/2023 2:26 PM JEWEL INSERTER): - Due for TDap, Zoster, Covid outside [...] 07/29/2022 Assessment & Plan (01/04/2023 2:19 PM JEWEL INSERTER): - Will try to resend Eplerenone, previously [...] 01/05/2022 Assessment & Plan (01/04/2023 2:26 PM JEWEL INSERTER): - Likely sleep-related, obesity, SHAYNE - Cont. PPI Sleep choking syndrome 01/05/2022 PND (paroxysmal nocturnal dyspnea) 01/05/2022 Bipolar affective disorder 12/24/2021 Back pain 12/24/2021 Family history of other specified conditions Asthma-COPD overlap syndrome 11/11/2021 Assessment & Plan (01/04/2023 2:18 PM JEWEL INSERTER): - Tob cessation Chronic midline low back pain without sciatica 0 11/09/2021 Lumbosacral disc disease 11/09/2021 Foraminal stenosis of lumbar region 11/09/2021 Heart failure with reduced ejection fraction 09/2021 Assessment & Plan (05/30/2023 3:04 PM CDT): HF with EF recovered to normal. Continue current treatment. Assessment & Plan (01/04/2023 2:16 PM JEWEL INSERTER): - See HTN above - Pt not [...] 07/11/2019 Assessment & Plan (01/04/2023 2:15 PM JEWEL INSERTER): - Stable, despite holding spirono due to [...] 11/06/2017 Assessment & Plan (01/04/2023 2:13 PM JEWEL INSERTER): - Encouraged cessation, ready to quit - [...] 12/02/2024 Refill [facility] [facility], [place] [address] Florence Ojeda, ANGLE SHEAR SET UP OPERATOR-TAIL PULLER Refill Request from Last 3 Months Immunizations [...] ENDOSCOPY, COLON, SCREENING Routine 12/07/2022 10:04 AM JEWEL INSERTER COMPREHENSIVE METABOLIC PANEL Routine 08/09/2022 1:47 PM CDT Weight loss HEPATITIS C AB W/RFLX TO HCV RNA QN PCR 09/19/2019 9:17 AM JEWEL INSERTER from Last 3 Months or Most Recently Relevant to Health Maintenance Results * ENDOSCOPY, COLON, SCREENING (12/07/2022 10:04 AM JEWEL INSERTER) Report Endoscopy POC Endoscopy Department Report _ [...] entire procedure. Procedure Code(s): --- Professional --- 52874, Colonoscopy, flexible; with removal of tumor(s), polyp(s), or other lesion(s) by snare technique Diagnosis Code(s): --- Professional --- Z86.010, Personal history of colonic polyps K63.5, Polyp of colon Z80.0, Family history of malignant neoplasm of digestive organs CPT copyright 2019 [employer]. All rights reserved. The codes documented in this report are preliminary and upon maintenance shop technician review may be revised to meet current compliance requirements. Tal Mccormick, 12/07/2022 10:49:20 AM Note Initiated On: 12/07/2022 10:04 AM Number of Addenda: [id number] [place] [address] PROVATION 12/07/2022 10:0 4 AM JEWEL INSERTER Rae Mccormick MD GI PRO CEDURE ORDERABLES [facility] PROVATION * (ABNORMAL) COMPREHENSIVE METABOLIC PANEL (08/09/2022 [...] 46 U/L [facility] Comment: Test Performed at: [facility] [address] [facility] [address] PRUDENCIO ALDANA DO,MPH Blood BLOOD SPECIMEN / Unknown 08/09/2022 1:47 PM CDT 08/09/2022 1:50 PM CDT Ian Pollock MD LAB - CHEMISTRY JANAE ELIAS Performing Organization Address [facility] de Phone Number [facility] [address] [place] [address] * HEPATITIS C AB W/RFLX TO HCV RNA QN PCR (09/19/2019 9:17 AM JEWEL INSERTER) Hepatitis C Antibody NON-REACTI VE NON-REACT FELY [facility] Signal to Cut-Off 0.03 <1.00 [facility] Comment: HCV antibody was non-reactive. There is no laboratory evidence of HCV infection. In most cases, no further action is required. However, if recent HCV exposure is suspected, a test for HCV RNA (test code 95769) is suggested. For additional information please refer to http://education.dabanniu.com/faq/ARH74q6 (This link is being provided for informational/ educational purposes only.) Test Performed at: [facility] [id number] [employer] [address] PRUDENCIO ALDANA DO,MPH 09/19/2019 9:17 AM JEWEL INSERTER 09/19/2019 9:21 AM JEWEL INSERTER Monica Tellez ANGLE SHEAR SET UP OPERATOR-TAIL PULLER LAB - CHEMI STRY ORDERABLES Performing Organization Address [facility] de Phone Number [facility] [address] [place] [address] from Last 3 Months or Most Recently Relevant to Health Maintenance Advance Directives Documents on File Type Date Recorded Patient Aoc Aadc Operations Staff Officer Expl anation Adv Directive/Living Will/POA 11/05/2015 12:22 PM * Full Code (Latest Code Status on File) Date Activated Date Inactivated Comments 11/01/2015 9:11 PM 11/05/2015 6:02 AM Care Teams Strategy Manager Relationship Specialty Start Date End Date Natalie Baum [address] [place] [address] PCP - General 05/06/24 Katina Casiano DO [address] [facility] [address] DIV OF [facility] INTERNAL MEDICINE [place], [place] Hospitalist 06/05/23 Tracey Ang PA [address] [facility] [address] [place] [address] Physician Block Cableman 08/15/23
--- OUTSIDE RECORDS SUMMARY | 2024-12-12 23:42 | XMS_ITS | Encounter Summary ---
Author Organization [facility] Address [address] [facility] [place] [address] Care Team Providers Care Financial Aid Advisor Name Role Phone Ian Pollock MD Primary Care Provider [phone] Ian Pollock MD Primary Care Provider [phone] Ian Pollock MD Primary Care Provider [phone] Ian Pollock MD Primary Care Provider [phone] Katina Casiano DO Unavailable [phone] Xavi ACOSTA MD, Jameel R Primary Care Provider + Katina Casiano DO Unavailable [phone] Tracey Ang PA Unavailable [phone] Belkis Angel PLUMBER AND TINNER-HAND INSPECTOR Primary Care Provider + Natalie Baum Primary Care Provider [phone] Reason for Visit * Reason Onset Date Comments MEDICATION REFILL 05/05/2020 Encounter Details Date Type Department Care Team (Late st Contact Info) Description 05/05/2020 Refill [facility] Pul[facility], Critical Care and Sleep Medicine [address] [place] [address] Agnieszka Haas MD [address] [place] [address] MEDICATION REFILL Social History Tobacco Use Types [...] on filedocumented in this encounter Care Teams Financial Aid Advisor Relationship Specialty Start Date End Date Ian Pollock MD PCP - General 12/13/19 05/25/20 Ian Pollock MD PCP - General 05/26/20 06/15/20 Ian Pollock MD [address] DIV OF [facility] [place] [address] PCP - General 07/31/20 08/20/20 Ian Pollock MD [address] DIV OF [facility] [place] [address] PCP - General 08/21/20 05/29/23 Jameel Hurley III, MD [address] DIV OF [facility] [place] [address] PCP - General Internal Medicine 06/05/23 08/28/23 Belkis Angel, PLUMBER AND TINNER-HAND INSPECTOR [address] [facility] 2nd [place] [address] PCP - General Nurse Practitioner 08/29/23 05/05/24 Natalie Baum [address] [place] [address] PCP - General 05/06/24 Katina Casiano DO [address] DIV OF [facility] INTERNAL MEDICINE [place], [place] Resident - PCP Internal Medicine 08/10/22 05/29/23 Katina Casiano DO [address] DIV OF [facility] INTERNAL MEDICINE [place], [place] Hospitalist 06/05/23 Tracey Ang PA [address] [facility] [address] [place] [address] Physician Sensory Scientist 08/15/23 documented as of this encounter
--- OUTSIDE RECORDS SUMMARY | 2024-12-12 23:42 | XMS_ITS | Referral Summary ---
Author Organization [facility] Address [address] [place] [address] Care Team Providers Care Roll Over Loader Name Role Phone Katina Casiano DO Unavailable [phone] Tracey Ang PA Unavailable [phone] Natalie Baum Primary Care Provider [phone] Source Comments [facility],non-owned Affiliates and Associated Physician Practices is amultiple site organization consisting of ambulatory clinics and hospital sitesin [place], [place], [place] and [place]. This disclosure is being madepursuant to the Care Everywhere program and may not contain all information available regarding this patient. Last updated 18.[facility] Encounters Date Type Department Care Team Description 12/02/2024 Refill [facility] - Urology [address] [place] [address], [place] [id number] Florence Ojeda, SUPERVISOR VACUUM METALIZING-COLOR TECHNICIAN Refill Request from Last 3 Months Allergies [...] MG/3ML) 0.083% nebulizer solutionIndicati ons:Centrilobula r emphysema (HCC),Asthma-SOFTWARE ENGINEER BACKEND D overlap syndrome (HCC) Inhale 2.5 (two [...] Active Symbicort 160-4.5 MCG/ACT inhalerIndicatio ns:Centrilobular emphysema (HCC),Asthma-SOFTWARE ENGINEER BACKEND D overlap syndrome (HCC) Inhale 2 (two) puffs by mouth once daily 10.2 g 3 08/29/2023 Active albuterol HFA (Proventil; Ventolin; Proair) 108 (90 Base) MCG/ACT inhalerIndicatio ns:Centrilobular emphysema (HCC),Asthma-SOFTWARE ENGINEER BACKEND D overlap syndrome (HCC) Inhale 2 (two) [...] 01/04/2023 Assessment & Plan (01/04/2023 2:27 PM HALL MANAGER): - sleep study pending Fatigue 01/04/2023 Assessment & Plan (01/04/2023 2:28 PM HALL MANAGER): - Check TSH - pending sleep study [...] 07/29/2022 Assessment & Plan (01/04/2023 2:26 PM HALL MANAGER): - Due for TDap, Zoster, Covid outside [...] 07/29/2022 Assessment & Plan (01/04/2023 2:19 PM HALL MANAGER): - Will try to resend Eplerenone, previously [...] 01/05/2022 Assessment & Plan (01/04/2023 2:26 PM HALL MANAGER): - Likely sleep-related, obesity, SHAYNE - Cont. PPI Sleep choking syndrome 01/05/2022 PND (paroxysmal nocturnal dyspnea) 01/05/2022 Bipolar affective disorder 12/24/2021 Back pain 12/24/2021 Family history of other specified conditions Asthma-COPD overlap syndrome 11/11/2021 Assessment & Plan (01/04/2023 2:18 PM HALL MANAGER): - Tob cessation Chronic midline low back pain without sciatica 0 11/09/2021 Lumbosacral disc disease 11/09/2021 Foraminal stenosis of lumbar region 11/09/2021 Heart failure with reduced ejection fraction 09/2021 Assessment & Plan (05/30/2023 3:04 PM CDT): HF with EF recovered to normal. Continue current treatment. Assessment & Plan (01/04/2023 2:16 PM HALL MANAGER): - See HTN above - Pt not [...] 07/11/2019 Assessment & Plan (01/04/2023 2:15 PM HALL MANAGER): - Stable, despite holding spirono due to [...] 11/06/2017 Assessment & Plan (01/04/2023 2:13 PM HALL MANAGER): - Encouraged cessation, ready to quit - [...] ENDOSCOPY, COLON, SCREENING Routine 12/07/2022 10:04 AM HALL MANAGER COMPREHENSIVE METABOLIC PANEL Routine 08/09/2022 1:47 PM CDT Weight loss HEPATITIS C AB W/RFLX TO HCV RNA QN PCR 09/19/2019 9:17 AM HALL MANAGER from Last 3 Months or Most Recently Relevant to Health Maintenance Results * ENDOSCOPY, COLON, SCREENING (12/07/2022 10:04 AM HALL MANAGER) Report Endoscopy POC Endoscopy Department Report _ [...] entire procedure. Procedure Code(s): --- Professional --- 22371, Colonoscopy, flexible; with removal of tumor(s), polyp(s), or other lesion(s) by snare technique Diagnosis Code(s): --- Professional --- Z86.010, Personal history of colonic polyps K63.5, Polyp of colon Z80.0, Family history of malignant neoplasm of digestive organs CPT copyright 2019 [employer]. All rights reserved. The codes documented in this report are preliminary and upon manager lan review may be revised to meet current compliance requirements. Tal Mccormick, 12/07/2022 10:49:20 AM Note Initiated On: 12/07/2022 10:04 AM Number of Addenda: [id number] [place] [address] [facility] 12/07/2022 10:0 4 AM HALL MANAGER Rae Mccormick MD GI PRO CEDURE ORDERABLES [...] 46 U/L [facility] Comment: Test Performed at: [place] [address] PRUDENCIO ALDANA DO,MPH Blood BLOOD SPECIMEN / Unknown 08/09/2022 1:47 PM CDT 08/09/2022 1:50 PM CDT Ian Pollock MD LAB - CHEMISTRY [facility] Organization Address City/State/ZIP Co de Phone Number [facility] [address] [place] [address] * HEPATITIS C AB W/RFLX TO HCV RNA QN PCR (09/19/2019 9:17 AM HALL MANAGER) Hepatitis C Antibody NON-REACTI VE NON-REACT FELY [facility] Signal to Cut-Off 0.03 <1.00 [facility] Comment: HCV antibody was non-reactive. There is no laboratory evidence of HCV infection. In most cases, no further action is required. However, if recent HCV exposure is suspected, a test for HCV RNA (test code 04532) is suggested. For additional information please refer to http://education.IVFXPERT/faq/TGJ19e0 (This link is being provided for informational/ educational purposes only.) Test Performed at: [facility] [address] [place] [address] PRUDENCIO ALDANA DO,MPH 09/19/2019 9:17 AM HALL MANAGER 09/19/2019 9:21 AM HALL MANAGER Monica Tellez SUPERVISOR VACUUM METALIZING-COLOR TECHNICIAN LAB - CHEMI STRY ORDERABLES [facility] [address] [place] [address] from Last 3 Months or Most Recently Relevant to Health Maintenance Advance Directives Documents on File Type Date Recorded Patient Project Development Leader Expl anation Adv Directive/Living Will/POA 11/05/2015 12:22 PM * Full Code (Latest Code Status on File) Date Activated Date Inactivated Comments 11/01/2015 9:11 PM 11/05/2015 6:02 AM Care Teams Roll Over Loader Relationship Specialty Start Date End Date Natalie Baum [address] [place] [address] PCP - General 05/06/24 Katina Casiano DO [address] [facility] 2[address] DIV OF [facility] [place], [place] Hospitalist 06/05/23 Tracey Ang PA [address] [facility] [address] [place] [address] Physician Horse Race Timer 08/15/23
--- OUTSIDE RECORDS SUMMARY | 2024-12-12 23:42 | XMS_ITS | Continuity of Care Document ---
Author Organization [facility] Address [address] [place] [address] Phone Care Team Providers Care Lens Cementer Name Role Phone Unavailable Unavailable Unavailable Medications [...] VST EST PT LOW TO MOD SEVERITY [facility] [place] , [address], [place], [place], [id number], tel:[phone] [facility] OTHER SPECFD COUNSELING 8 No Information [facility] [place] , [address], [place], [place], [id number], [place] tel:[phone] [facility] No Information 8 No Information OFFICE CONSULT, 15 MIN, 3 RODRIGUEZ COMPS: PROB FOCUS HX; PROB FOCUS EXAM; [facility] , [address], [place], [place], [address], [place] tel:[phone] [facility] COUNSELING NOS 8 No Information HOME VST EST PT LOW TO MOD SEVERITY [facility] [place] , [address], [place], [place], [address], [place] tel:[phone] [facility] OTHER SPECFD COUNSELING 8 No Information HOME VST NEW PT HI SEVERITY [facility] [place] , [address], [place], [place], [id number], [place] tel:[phone] [facility] DRUG ABUSE NEC-UNSPECDEPRES SIVE DISORDER NECHYPERTENSION NOS 8 No Information [facility] , [address], [place], [place], [address], [place] tel:[phone] [facility] DENTAL EXAMINATION 8 No Information Family History [...]
--- OUTSIDE RECORDS SUMMARY | 2024-12-12 23:42 | XMS_ITS ---
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 Stress is when someone feels tense, nervous, anxious, or can\t sleep at night because their mind is troubled Not at all In the past year have you sp ent more than 2 nights in a row in a shelter, group home, senior living center, or juvenile correctional facility? 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 Stress is when someone feels tense, nervous, anxious, or can\t sleep at night because their mind is troubled N ot at all, I n the past year have you spent more than 2 nights in a row in a shelter, group home, senior living center, or juvenile correctional facility? N o, [...] Generated for Liudmila gray/Katey/Rositaitting on: 0 12/12/2024 11:42 PM NURSE CASE MANAGEMENT
--- OUTSIDE RECORDS SUMMARY | 2024-12-12 23:42 | XMS_ITS | Encounter Summary ---
Author Organization [facility] Address Replaced by [facility] [place] [address] Care Team Providers Care Chronic Disease Epidemiologist Name Role Phone Amilcar Osorio MD Primary Care Provider [phone] Monica Tellez NP Primary Care Provider [phone] Encounter Details Date Type Department Care Team (Late st Contact Info) Description 04/09/2018 Hosp Visit [facility] Outpatient Therapy [address] [place], [place] [address] Grecia Hess, [place] [address] Social History Tobacco Use Types Packs/Day Years [...] on filedocumented in this encounter Care Teams Chronic Disease Epidemiologist Relationship Specialty Start Date End Date Amilcar Osorio MD [address] [facility] [address] [place] [address] PCP - General 05/01/17 09/04/19 Monica Tellez NP [address] [place] [address] PCP - General NURSE PRACTITIONER 09/05/19 documented as of this encounter
--- OUTSIDE RECORDS SUMMARY | 2024-12-12 23:42 | XMS_ITS | Clinical Summary ---
Author Organization [facility] Address [address] [place] [address] Phone Care Team Providers Care Bioinformatics Computer Scientist Name Role Phone SADIE JACK MD Unavailable [...] On 0 10:36AM By PAUL NUNEZ ; [facility] Gabapentin 600 MG Oral Tablet 05/26/2020 Provider: PAUL MAJANO Diagnosis: Radiculopathy, l umbar region TAKE 1 TABLET BY MOUTH THREE TIMES DAILY. Last Documented On 0 2:54PM By PAUL NUNEZ ; [facility] Triamcinolone Acetonide 0.1% External Cream 10/07/2019 Provider: Diagnosis: Last Documented On 9 11:28AM By Faye MEJÍA ; [facility] Spironolactone 50 MG Oral Tablet 10/07/2019 Provider : Diagnosis: Last Documented On 9 11:27AM By Faye MEJÍA ; [facility] Omeprazole 40 MG Oral Capsule Delayed Release 10/07/20 19 Provider: Diagnosis: Last Documented On 9 11:27AM By Faye MEJÍA ; [facility] Ibuprofen 600 MG Oral Tablet 10/07/2019 Provider: Diagnosis: Last Documented On 9 11:27AM By Faye MEJÍA ; [facility] hydrOXYzine Pamoate 50 MG Oral Capsule 10/07/2019 Pr ovider: Diagnosis: Last Documented On 9 11:26AM By Faye MEJÍA ; [facility] Carvedilol 25 MG Oral Tablet 10/07/2019 Provider: Diagnosis: Last Documented On 9 11:26AM By Faye MEJÍA ; [facility] Medications Administered Includes: Administered Medications from this [...] Active Last Documented On 0 8:29AM ; [facility] Lisinopril Allergy 10/07/2019 Active Last Documented On 0 8:29AM ; [facility] Encounters Encounter Provider Location Date Check-In Time Check-Out Time Diagnosis NO SHOW PAUL DAVIS- 06/30/2020 8:28AM 11:59PM Insurance Includes: Active Insurance Policies Plan Name Member ID Group # Subscriber Relationship Effect jeannine Dates 1 - [facility] [id number] RYLEE GRAY Self Clinical Notes Includes: Clinical Notes from this encounter No Clinical Notes Recorded
--- OUTSIDE RECORDS SUMMARY | 2024-12-12 23:42 | XMS_ITS ---
Care Plan - [facility] Created on: December 12, 2024 RYLEE GRAY : 1960 Sex: Male Author Organization [facility] Address [address] [place] [address] Phone Care Team Providers Care International Flight Attendant Name Role Phone MARCIE WALTERS, SADIE Giraldo Unavailable
--- OUTSIDE RECORDS SUMMARY | 2024-12-12 23:42 | XMS_ITS | Encounter Summary ---
Author Organization [facility] Address [facility] [place] [address] Care Team Providers Care Magnesium Mill Operator Name Role Phone Amilcar Osorio MD Primary Care Provider [phone] Monica Tellez RAND TACKER Primary Care Provider [phone] Encounter Details Date Type Department Care Team (Late st Contact Info) Description 04/02/2018 Hosp Visit [facility] Outpatient Therapy [address] [place], [place] [id number] Grecia Hess, [place] [address] Social History Tobacco Use Types Packs/Day Years [...] on filedocumented in this encounter Care Teams Magnesium Mill Operator Relationship Specialty Start Date End Date Amilcar Osorio MD [address] [facility] [address] [place] [address] PCP - General 05/01/17 09/04/19 Monica Tellez NP [address] [place] [address] PCP - General NURSE PRACTITIONER 09/05/19 documented as of this encounter
--- OUTSIDE RECORDS SUMMARY | 2024-12-12 23:42 | XMS_ITS | Encounter Summary ---
Author Organization [facility] - [facility] Address Pending sale to [facility] [place] [address] Care Team Providers Care Right Of Way Buyer Name Role Phone Amilcar Osorio MD Primary Care Provider [phone] Monica Tellez TUBE MAKER Primary Care Provider [phone] Encounter Details Date Type Department Care Team (Late st Contact Info) Description 07/03/2018 Abstract [facility] Medical Group Multispecialty Care - [facility] [address] [facility] [place] [address] Gina Fleming APNP [address] [facility] [address] [facility] [address] [place] [address] Social History Tobacco Use Types Packs/Day Years [...] on filedocumented in this encounter Care Teams Right Of Way Buyer Relationship Specialty Start Date End Date Amilcar Osorio MD [address] [facility], [facility] [address] [place] [address] PCP - General 05/01/17 09/04/19 Monica Tellez NP [address] [place] [address] PCP - General NURSE PRACTITIONER 09/05/19 documented as of this encounter
--- OUTSIDE RECORDS SUMMARY | 2024-12-12 23:42 | XMS_ITS | Patient Health Summary ---
Author Organization [facility] Address [address] [place] [address] Care Team Providers Care Slot Shift Manager Name Role Phone Katina Casiano DO Unavailable [phone] Tracey Ang PA Unavailable [phone] Natalie Baum Primary Care Provider [phone] Note from [facility],non-owned Affiliates and Associated Physician Practices is amultiple site organization consisting of ambulatory clinics and hospital sitesin [place], [place], [place] and [place]. This disclosure is being madepursuant to the Care Everywhere program and may not contain all information available regarding this patient. Last updated 18.[facility] Allergies * Lisinopril(Anaphylaxis,Unknown) -High Criticality * Penicillins(Anaphylaxis) [...] for Lower urinary tract symptoms (LUTS) * OR MSR PVR U&/BLADD CAPCTY US NON(Performed 11/18/2022) [...] REHAB(Performed 05/03/2022) * CARDIAC REHAB(Performed 03/23/2022) * OR DRAIN/INJECT LARGE JOINT/BURSA(Performed 03/18/2022) Performed for Greater [...] resultswithin the time period is included. BSA [id number] m2 [facility] CV [facility]J I PACS LV [...] PACS MV DT 283 ms [facility] CV [facility] I PACS MV E' septal dane 4.572 cm/s [facility] CV [facility]I PACS MV E/e' septal 11.8 [facility] C V FUJI PACS MV E/e' lateral 5.552 [facility] CV [facility]I PACS LA vol BP 49.935 mL [facility] CV [facility] I PACS LVOT pk dane [...] FUJI PACS RVIDd 2.8 cm [facility] CV [facility] I PACS RVOT VTI 11.222 cm [facility] CV [facility] I PACS TV S' dane 12.426 cm/s [facility] CV [facility] I PACS TAPSE 1.978 1.7 cm [facility] CV [facility] I PACS RVOT pk dane [...] Index 26 ml/m2 [facility] CV FUJI PACS [id number] 7.143 cm [facility] CV FUJ I PACS [id number] 7.525 cm [facility] CV FUJ I PACS [...] ORDERA BLES * Complete PFT w/wo Bronchodilator [facility] PFT Lab (03/14/2023 2:36 PM CDT) Impressions Ang Christie MD - 03/14/2023 2:36 PM CDT [facility] DEPARTMENT OF PULMONARY, CRITICAL CARE, AND [...] Pulmonary Disease & Critical Care Fellow [facility] Pager: [phone] I have reviewed the test data and agree with Dr. Butler's interpretations. Ang Christie MD 04/26/2023 Narrative Ang Christie MD - 03/14/2023 2:36 PM CDT Song Butler, 03/14/2023 2:42 PM Procedure Note Song Butler, - 03/14/2023 2:36 PM CDT Images from the original note were not included. Rhianna Moctezuma MD [facility] * CT CHEST WO CONTRAST [...] Bernard MD. > Dictated by David Bernard (Sas Clinical Programmer) 01/31/2023 11:34 AM IBimal MD have personally reviewed and interpreted this examination/study. > Interpreting Provider: Bimal Lozano MD on 01/31/2023 11:37 AM Narrative 01/31/2023 11:37 AM CDT PROCEDURE: CT CHEST WO CONTRAST, DATE/TIME OF EXAM: 01/31/2023 7:47 AM, LOCATION [facility] INDICATION: R91.1: Pulmonary nodule ADDITIONAL CLINICAL [...] DATE/TIME OF EXAM: 01/31/2023 7:47 AM, LOCATION [facility] INDICATION: R91.1: Pulmonary nodule ADDITIONAL CLINICAL [...] Bernard MD. > Dictated by David Bernard (Sas Clinical Programmer) 01/31/2023 11:34 AM IBimal MD have personally reviewed and interpreted this examination/study. > Interpreting Provider: Bimal Lozano MD on 01/31/2023 11:37 AM Jeffrey Oliveira MD CT ORDERABLES * PATHOLOGY TISSUE (12/07/2022 10:29 AM CIVILIAN TECHNICIAN) Case Report Surgical Pathology Report Case: [id number] Authorizing Provider: Gavin Mccormick, Collected: 12/07/2022 10:29 AM Ordering Location: [facility] ENDOSCOPY Received: 12/07/2022 12:46 PM Pathologist: Coral Epps MD Specimen: Polyp Ascending, ascending colon polyps 12/08/2022 1:54 PM [facility] PATHOLOGY LAB Final Diagnosis Large intestine, ascending colon polyps, biopsy (A): - Tubular adenoma(s), fragmented 12/08/2022 1:54 PM [facility] PATHOLOGY LAB Microscopic Description and Comment Microscopic examination substantiates the final diagnosis. 12/08/2022 1:54 PM [facility] PATHOLOGY LAB Clinical History The patient is a 62-year-old man who presents for high risk colon cancer surveillance (personal history of colonic polyps and family history of colon cancer in first-degree relative age <60 years). Operative procedure/findings: Colonoscopy - four 4-6 mm ascending colon polyps, resected and retrieved. 12/08/2022 1:54 PM [facility] PATHOLOGY LAB Gross Description The requisition and specimen(s) are identified with the patient's name Josafat Calvo. Received in formalin, specimen A , are multiple pink-nolasco tissues, 0.2-0.8 cm in greatest dimension and 2.0 x 0.5 x 0.2 cm in aggregate, submitted in toto in cassette A1. DF 12/08/2022 1:54 PM [facility] PATHOLOGY LAB Disclaimer The performance characteristics of all immunohistochemical and indirect immunofluorescence stains (if any) cited in this report were determined by the Histopathology Laboratory of [facility]. Some of these tests were developed [...] attending (teaching) pathologist. 12/08/2022 1:54 PM [facility] PATHOLOGY LAB Embedded Images 12/08/2022 1:54 PM [facility] PATHOLOGY LAB Biopsy, NOS POLYP / Unknown 12/07/2022 1 0:29 AM CIVILIAN TECHNICIAN 12/07/2022 12:46 PM CIVILIAN TECHNICIAN Comment:Pre-op diagnosis: Dark stools [R19.5] Colon cancer screening [Z12.11] Rae Mccormick MD LAB - PATHOLOGY/CYTOLOGY ORDERABLES [facility] PATHOLOGY LAB [address] [phone] * ENDOSCOPY, COLON, SCREENING (12/07/2022 10:04 AM CIVILIAN TECHNICIAN) Report Endoscopy POC Endoscopy Department Report _ [...] entire procedure. Procedure Code(s): --- Professional --- 40689, Colonoscopy, flexible; with removal of tumor(s), polyp(s), or other lesion(s) by snare technique Diagnosis Code(s): --- Professional --- Z86.010, Personal history of colonic polyps K63.5, Polyp of colon Z80.0, Family history of malignant neoplasm of digestive organs CPT copyright 2019 [employer]. All rights reserved. The codes documented in this report are preliminary and upon organ tuner review may be revised to meet current compliance requirements. Tal Mccormick, 12/07/2022 10:49:20 AM Note Initiated On: 12/07/2022 10:04 AM Number of Addenda: [id number] [place] [address] PROVATION 12/07/2022 10:0 4 AM CIVILIAN TECHNICIAN Rae Mccormick MD GI PRO CEDURE ORDERABLES [facility] PROVATION * URINALYSIS AUTO - POINT OF CARE (AMB) [facility] (11/18/2022 9:37 AM CIVILIAN TECHNICIAN) Only the most recent of3 resultswithin the time period is included. Glucose UA neg Bilirubin UA POCT neg Ketones UA POCT neg Specific [place] UA 1.015 Blood Urine POCT neg pH UA 6.0 Protein UA neg Urobilinogen UA 0.2 mg/dl Nitrite UA neg WBC UA neg Urine URINE / Unknown 11/18/2022 9 :37 AM CIVILIAN TECHNICIAN Florence Ojeda MOTEL MANAGER-BATTERY MECHANIC LAB - POINT O F CARE ORDERABLES * OR MSR PVR U&/BLADD CAPCTY US NON (11/18/2022 9:32 AM CIVILIAN TECHNICIAN) Narrative Franklin Montez CNA - 11/18/2022 9:32 AM CIVILIAN TECHNICIAN Franklin Montez CNA 11/22/2022 11:12 AM Bladder Scan 103 ml Florence Alonso Rusty MOTEL MANAGER-BATTERY MECHANIC PROCEDURE/MIN OR SURGICAL ORDERABLES * (ABNORMAL) URINALYSIS W/MICROSCOPIC NO CULTURE (08/09/2022 1:47 PM CDT) Color UA YELLOW YELLOW [facility] Appearance CLOUDY(A) CLEAR [facility] Specific [place] UA 1.006 1.001 - 1.035 [facility] pH [...] SEEN /LPF [facility] Comment: Test Performed at: [facility] [employer] [address] PRUDENCIO ALDANA DO,MPH Urine URINE SPECIMEN OBTAINED BY CLEAN CATCH PROCEDURE / Unknown 08/09/2022 1:47 PM CDT 08/09/2022 1:50 PM CDT Ian Pollock MD LAB - URINALYSIS ORD ERABLES [facility] [address] [place] [address] * (ABNORMAL) IRON + TIBC + FERRITIN (08/09/2022 1:47 PM CDT) Iron 132 50 - 180 mcg/dL [facility] TIBC 272 250 - 425 mcg/dL (calc) [facility] % Saturation 49(H) 20 - 48 % (calc) [facility] Ferritin 209 24 - 380 ng/mL [facility] Comment: Test Performed at: [facility] [address] PRUDENCIO ALDANA DO,MPH Blood BLOOD SPECIMEN / Unknown 08/09/2022 1:47 PM CDT 08/09/2022 1:50 PM CDT Ian Pollock MD LAB - CHEMISTRY JANAE ELIAS Performing Organization Address [facility] Co de Phone Number [facility] [address] [place] [address] * (ABNORMAL) CBC WITH DIFFERENTIAL (08/09/2022 1:47 [...] 1.0 % [facility] Comment: Test Performed at: [facility] [address] [place] [address] PRUDENCIO ALDANA DO,MPH Blood BLOOD SPECIMEN / Unknown 08/09/2022 1:47 PM CDT 08/09/2022 1:50 PM CDT Ian Pollock MD LAB - HEMATOLOGY ORD GLYNN Performing Organization Address City/[facility]/ZIP Co de Phone Number [facility] [address] [place] [address] * (ABNORMAL) COMPREHENSIVE METABOLIC PANEL (08/09/2022 1:47 [...] 46 U/L [facility] Comment: Test Performed at: [facility] [address] [place] [address] PRUDENCIO ALDANA DO,MPH Blood BLOOD SPECIMEN / Unknown 08/09/2022 1:47 PM CDT 08/09/2022 1:50 PM CDT Ian Pollock MD LAB - CHEMISTRY JANAE ELIAS [facility] [address] [place] [address] * MAGNESIUM BLOOD (08/09/2022 1:47 PM CDT) Magnesium 1.9 1.5 - 2.5 mg/dL [facility] Comment: Test Performed at: [facility] [address] [place] [address] PRUDENCIO ALDANA DO,MPH Blood BLOOD SPECIMEN / Unknown 08/09/2022 1:47 PM CDT 08/09/2022 1:50 PM CDT Ian Pollock MD LAB - CHEMISTRY JANAE ELIAS Performing Organization Address [facility] Co de Phone Number [facility] [address] [place] [address] * CK BLOOD (08/09/2022 1:47 PM CDT) CK 135 44 - 196 U/L [facility] Comment: Test Performed at: [facility] [address] [place] [address] PRUDENCIO ALDANA DO,MPH 08/09/2022 1:47 PM CDT 08/09/2022 1:50 PM CDT Ian Pollock MD LAB - CHEMISTRY JANAE ELIAS Performing Organization Address [facility]/[place] [address] * CARDIAC REHAB (05/03/2022) Only the most [...] compared to the equimolar-standardized total PSA (Alison [place]). Comparison of serial PSA results should be interpreted with this fact in mind. This test was performed using the Siemens chemiluminescent method. Values obtained from different assay methods cannot be used interchangeably. PSA levels, regardless of value, should not be interpreted as absolute evidence of the presence or absence of disease. Test Performed at: [facility] [address] [place] [address] PRUDENCIO ALDANA DO,MPH Blood BLOOD SPECIMEN / Unknown 01/31/2022 10:17 AM CDT 01/31/2022 10:18 AM CDT Florence Ojeda MOTEL MANAGER-BATTERY MECHANIC LAB - LINEN AIDE RY ORDERABLES [employer] [address] [place] [address] * XR HIP LEFT 2VW OR MORE [...] <=0.50 mcg/mL FEU 01/17/2022 5:14 PM CDT [facility] Comment: In the absence of [...] - COAGULATION O RDERABLES Performing Organization Address [facility]/ZIP Co de Phone Number [facility] [phone] [place] [address], [facility] [phone] * ALLERGEN INTERPRETATION (11/08/2021 10:21 AM CIVILIAN TECHNICIAN) Interpretation See Below [facility] Comment: Specific Level [...] analytical performance characteristics have been determined by [employer]. It has not been cleared or approved by the U.S. Food and Drug Administration. This assay has been validated pursuant to the CLIA regulations and is used for clinical purposes. Test Performed at: [facility] [address] [place] [address] PRUDENCIO ALDANA DO,MPH 11/08/2021 10:2 1 AM CIVILIAN TECHNICIAN 11/08/2021 10:22 AM CIVILIAN TECHNICIAN Tariq Recio MD LAB - SEROLOGY ORDER DANAY Performing Organization Address City/[facility]/ZIP Co de Phone Number [facility] [address] [place] [address] * (ABNORMAL) ALLERGEN RESPIRATORY PROF (IL,MO,IA) IGE (11/08/2021 10:21 AM CIVILIAN TECHNICIAN) Allergen Dermatophagoides pteronyssinus <0.10 kU/L [facility] Class [...] kU/L [facility] Class 0 [facility] Allergen Cockroach [place] <0.10 kU/L [facility] Class 0 [facility] Allergen Maple <0.10 kU/L [facility] Class 0 [facility] Allergen [place] <0.10 kU/L [facility] Class 0 [facility] Allergen [place] Tree <0.10 kU/L [facility] Class 0 [facility] Allergen [place] <0.10 kU/L [facility] Class 0 [facility] Allergen [place] Tree <0.10 kU/L [facility] Class 0 [facility] Allergen White Clay <0.10 kU/L [facility] Class 0 [facility] Allergen S[place]tuck <0.10 kU/L [facility] Class 0 [facility] Allergen Elm <0.10 kU/L [facility] Class 0 [facility] Allergen Cass/Pecan Tree <0.10 kU/L [facility] Class 0 [facility] Allergen White Zaleski <0.10 kU/L [facility] Class 0 [facility] Allergen Berm[place] Grass <0.10 kU/L [facility] Class 0 [facility] Allergen Hermes Grass <0.10 kU/L [facility] Class 0 [facility] Allergen Common Ragweed <0.10 kU/L [facility] Class 0 [facility] Allergen Rough Pigweed <0.10 kU/L [facility] Class 0 [facility] Allergen Dutch Thistle <0.10 kU/L [facility] Class 0 [facility] Allergen Rough Curiel Elder <0.10 kU/L [facility] Class 0 [facility] Allergen Mouse Urine Protein <0.10 kU/L [facility] Class 0 [facility] IgE 140(H) <JY=569 kU/L [facility] Comment: Test Performed at: [facility] [address] [place] [address] PRUDENCIO ALDANA DO,MPH 11/08/2021 10:2 1 AM CIVILIAN TECHNICIAN 11/08/2021 10:22 AM CIVILIAN TECHNICIAN Tariq Recio MD LAB - CHEMISTRY JANAE HERNANDEZJENN [facility] [address] [place] [address] * IR NERVE BLOCK L OR S [...] METABOLIC PANEL (CALCIUM TOTAL) (01/04/2021 1:18 PM CIVILIAN TECHNICIAN) Only the most recent of4 resultswithin the time period is included. Glucose 94 65 - 99 mg/dL [facility] Comment: Fasting reference interval BUN 9 7 - 25 mg/dL [facility] Creatinine 0.87 0.70 - 1.33 mg/dL [facility] Comment: For patients >49 years of age, the reference limit for Creatinine is approximately 13% higher for people identified as -Burkinan. eGFR by MDRD 94 > OR = [...] 10.3 mg/dL [facility] Comment: Test Performed at: [facility] [address] [place] [address] PRUDENCIO ALDANA DO,MPH Blood BLOOD SPECIMEN / Unknown 01/04/2021 1:18 PM CIVILIAN TECHNICIAN 01/04/2021 1:18 PM CIVILIAN TECHNICIAN John Nelson MD LAB - CHEMISTRY ORD ERABLES [facility] [address] [place] [address] * LIPID PROFILE (01/04/2021 1:18 PM CIVILIAN TECHNICIAN) Only the most recent of2 resultswithin the [...] LDL-C. Luciano EPSTEIN et al. LACEY. 2013;310(19): 3084-1080 (http://education.Marqui/faq/CSV507) CHOL/HDLC RATIO 2.1 <5.0 (calc) [facility] Non HDL Cholesterol 61 <130 mg/dL (calc) [facility] Comment: For patients with diabetes plus 1 major ASCVD risk factor, treating to a non-HDL-C goal of <100 mg/dL (LDL-C of <70 mg/dL) is considered a therapeutic option. Test Performed at: [facility] [address] [place] [address] PRUDENCIO ALDANA DO,MPH Blood BLOOD SPECIMEN / Unknown 01/04/2021 1:18 PM CIVILIAN TECHNICIAN 01/04/2021 1:18 PM CIVILIAN TECHNICIAN John Nelson MD LAB - CHEMISTRY ORD ERABLES [employer] [address] [place] [address] * BRONCHIAL CHALLENGE WITH METHACHOLINE (12/21/2020 12:10 PM CIVILIAN TECHNICIAN) Paul Moran MD - 12/21/2020 12:10 PM CIVILIAN TECHNICIAN [facility] DEPARTMENT OF PULMONARY, CRITICAL CARE, AND [...] Pulmonary, Critical Care and Sleep Medicine [facility] I have personally reviewed the fellows interpretation of the test and made any necessary corrections. Paul Galeano MD Steel Rule Inspectorpipe and test supervisor Division of Pulmonary, Critical Care, & Sleep Medicine Narrative Paul Galeano MD - 12/21/2020 12:10 PM CIVILIAN TECHNICIAN Hossein Mendez DO 12/21/2020 1:36 PM Tariq Recio MD PFT ORDERABLES * FRACTIONAL EXHALED NITRIC OXIDE (12/21/2020 12:10 PM CIVILIAN TECHNICIAN) Paul Moran MD - 12/21/2020 12:10 PM CIVILIAN TECHNICIAN [facility] DEPARTMENT OF PULMONARY, CRITICAL CARE, AND [...] of Pulmonary, Critical Care and Sleep Medicine [facility] I have personally reviewed the fellows interpretation of the test and made any necessary corrections. Paul Galeano MD Steel Rule Inspectorpipe and test supervisor Division of Pulmonary, Critical Care, & Sleep Medicine Narrative Paul Galeano MD - 12/21/2020 12:10 PM CIVILIAN TECHNICIAN Hossein Mendez DO 12/21/2020 1:37 PM Tariq Recio MD RESPIRATORY THERAPY ORDERABLES * FL JOINT INJECTION OR ASPIRATE (10/14/2020 10:36 AM CIVILIAN TECHNICIAN) Only the most recent of3 resultswithin the time period is included. Anatomical Region Laterality Modality Upper Extremity, Lower Extremity, Pelvis, Chest Radiographic Imaging 10/14/2020 12:1 7 PM CIVILIAN TECHNICIAN Impressions 10/14/2020 12:20 PM CIVILIAN TECHNICIAN IMPRESSION: Successful fluoroscopic guided therapeutic left hip joint injection. This report was electronically signed by BOOKER DEE MD on 10/14/2020 12:20 PM . Narrative 10/14/2020 12:20 PM CIVILIAN TECHNICIAN FLUOROSCOPIC GUIDED THERAPEUTIC INJECTION left HIP HISTORY: [...] ES * PSA SERIAL (09/29/2020 10:23 AM CIVILIAN TECHNICIAN) PSA Total 2.2 0.0 - 4.0 ng/mL 09/29/2020 11:46 AM CIVILIAN TECHNICIAN [facility] Blood BLOOD SPECIMEN / Unknown Lab Venipuncture / Unknown 09/29/2020 10:23 AM CIVILIAN TECHNICIAN 09/29/2020 11:01 AM CIVILIAN TECHNICIAN Florence Ojeda MOTEL MANAGER-BATTERY MECHANIC LAB - LINEN AIDE RY ORDERABLES [address] [address], [facility] [phone] * CARDIAC PROCEDURE ORDER (06/27/2020 4:51 AM CDT) Narrative 06/27/2020 4:51 AM CDT Ordered by an unspecified provider. Scanned Document CARDIAC SERVICES ORD ERABLES * CCL CARDIAC CATH LEFT (06/17/2020 10:06 AM CDT) Anatomical Region Laterality Modality Chest X-Ray Angiograph y Narrative 07/03/2020 11:26 AM CDT [facility] Cardiac Catheterization Procedure Note Patient: Josafat Calvo Age: [age] year old Date of : 1960 Date of Admission: 06/17/2020 Procedure Date: 06/17/20 FELLOW / VEGETABLE LOADER MACHINE OPERATOR: Elpidio Quigley MD ATTENDING PHYSICIAN: Mikey [...] review the evaluation forms in [facility]. For details on monitored clinical parameters during the intra-service sedation time, please review the procedure nurse documentation in [facility] and [facility]. Total sedation administered as follows: 50 mcg IV fentanyl, 0.5 mg IV midazolam. 3 ml of 1% lidocaine was administered subcutaneously at the access site. TOTAL CONTRAST USED (Isovue 370): 35 ml RADIATION: AK: 409.15 mGy DAP: 68798 mGycm2 HEMODYNAMIC FINDINGS: - LVEDP 15 mmHg [...] Mikey Donovan MD Torres Blankenship MD CARDIAC TYPEWRITER ALIGNER RAD IANT * PT-INR [facility] (06/17/2020 9:01 AM CDT) PT 13.6 12.1 - 14.8 Seconds 06/17/2020 9:41 AM [facility] INR 1.1 See Comment 06/17/2020 9:41 AM [...] - COAGULATION OR DERABLES Performing Organization Address [facility]/State/[facility] Co de Phone Number [address] [phone] [phone] * (ABNORMAL) CBC W/O DIFFERENTIAL (06/17/2020 9:01 AM CDT) WBC 6.5 3.5 - 10.5 10 3/uL 06/17/2020 9:13 AM [facility] RBC 4.82 4.30 - 5.70 10 6/uL 06/17/2020 9:13 AM [facility] Hemoglobin 13.3(L) 13.5 - 17.5 g/dL 06/17/2020 9:13 AM [facility] Hematocrit 40.9 39.0 - 50.0 % 06/17/2020 9:13 AM [facility] MCV 84.9 81.0 - 97.0 fL 06/17/2020 9:13 AM [facility] MCH 27.6(L) 28.0 - 34.0 pg 06/17/2020 9:13 AM [facility] MCHC 32.5 32.0 - 36.0 g/dL 06/17/2020 9:13 AM [facility] Platelet Count 227 150 - 400 10 3/uL 06/17/2020 9:13 AM [facility] RDW-SD 42.4 36.0 - 50.0 fL 06/17/2020 9:13 AM CDT [facility] RDW-CV 13.7 11.2 - 14.8 % 06/17/2020 9:13 AM CDT [facility] MPV 9.9 9.3 - 12.8 fL 06/17/2020 9:13 AM CDT [facility] nRBC Absolute 0.00 0 10 3/uL 06/17/2020 9:13 AM CDT [facility] nRBC Auto 0.0 0 /100 WBC 06/17/2020 9:13 AM CDT [facility] Blood BLOOD SPECIMEN / Unknown Venipuncture / Unknown 06/17/2020 9:01 AM CDT 06/17/2020 9:10 AM CDT Torres Blankenship MD LAB - HEMATOLOGY ORD ERABLES Performing Organization Address City/State/[place] Co de Phone Number [address] [phone] [phone] * XR PELVIS W LEFT HIP 2VW (04/27/2020 9:53 AM CDT) Anatomical Region Laterality Modality Pelvis Radiographic Joann ging 04/27/2020 12:1 3 PM CDT Impressions 04/27/2020 1:27 PM CDT IMPRESSION: Mild degenerative changes in the both hip joints. Report dictated by Fabrizio Aparicio M.D. (resident service coordinator). I, Dr. BOOKER DEE MD have personally [...] joints. Report dictated by Fabrizio Aparicio M.D. (resident service coordinator). I, Dr. BOOKER DEE MD have personally reviewed and interpreted this examination/study. This report was electronically signed by BOOKER DEE MD on04/27/2020 1:27 PM . Silvio Bain MD DIAGNOSTIC IMAGI NG ORDERABLES * (ABNORMAL) CULTURE RESPIRATORY LOWER (04/23/2020 12:18 PM CDT) Culture (A) [facility] Comment: CULTURE, SPUTUM/LOWER RESPIRATORY Micro Number: [id number] Test Status: Final Specimen Source: SPUTUM Specimen Quality: Adequate Gram Stain: Many White blood cells seen No epithelial cells seen Many Mixed bacterial marlon Yeast present Gram stain indicates that the specimen is it sales representative of the lower respiratory tract. Result: Heavy growth of Yeast Isolated. Please contact the laboratory within 3 days if further identification is desired. COMMENT: Normal oropharyngeal marlon also present. Test Performed at: [email or web address] [address] JOSEE THAKUR MD 04/23/2020 12:1 8 PM CDT 04/23/2020 12:19 PM CDT Agnieszka Haas MD LAB - MICROBIOLOGY O RDERABLES [address] [address] * COMPLETE PFT W/WO BRONCHODILATOR (03/24/2020) Impressions Tevin Gaspar MD - 03/24/2020 [facility] DEPARTMENT OF PULMONARY, CRITICAL CARE, AND [...] of Pulmonary, Critical Care, & Sleep Medicine [facility] P: [phone] 04/08/2020 , 9:25 AM Tevin Gaspar MD RESPIRATORY THERAPY ORDERABLES * MRI LUMBAR SPINE WO CONTRAST (11/29/2019 3:43 PM CIVILIAN TECHNICIAN) Anatomical Region Laterality Modality Spine Magnetic Resonan ce 11/29/2019 3:39 PM CIVILIAN TECHNICIAN Impressions 11/29/2019 4:05 PM CIVILIAN TECHNICIAN IMPRESSION: Severe degenerative changes at L5-S1 with [...] 4:05 PM . Narrative 11/29/2019 4:05 PM CIVILIAN TECHNICIAN EXAMINATION: Magnetic resonance imaging (MRI) of the [...] ENTIRE 2 OR 3VW (11/04/2019 1:06 PM CIVILIAN TECHNICIAN) Anatomical Region Laterality Modality Radiographic Joann ging 11/04/2019 3:25 PM CIVILIAN TECHNICIAN Impressions 11/04/2019 3:32 PM CIVILIAN TECHNICIAN FINDINGS/IMPRESSION: There is no evidence of scoliosis. There is no coronal/sagittal imbalance. Pelvic tilt, left greater than right, measures approximately 1.5 cm. There is mild to moderate degenerative disc and joint disease. There is no evidence of vertebral subluxation on the sagittal view. Dictated by Harry Gomez MD (resident service coordinator). Dr. PRANAY Duong have personally reviewed and interpreted this examination/study. This report was electronically signed by PRANAY MENDOZA on 11/04/2019 3:32 PM . Narrative 11/04/2019 3:32 PM CIVILIAN TECHNICIAN EXAMINATION: XR SPINE ENTIRE 2 OR 3VW [...] on the sagittal view. Dictated by Harry Gmoez MD (resident service coordinator). I, Dr. PRANAY MENDOZA have personally reviewed and interpreted this examination/study. This report was electronically signed by PRANAY MENDOZA on 11/04/2019 3:32 PM . April Mora MD DIAGNOSTIC IMAGING O RDERABLES * LAB RESULTS ORDER (09/20/2019 12:48 PM CIVILIAN TECHNICIAN) Only the most recent of3 resultswithin the time period is included. Narrative 09/20/2019 12:48 PM CIVILIAN TECHNICIAN Ordered by an unspecified provider. Scanned Document LAB - THERAPEUTIC DR PENA MONITORING ORDERABLES * HEPATITIS C AB W/RFLX TO HCV RNA QN PCR (09/19/2019 9:17 AM CIVILIAN TECHNICIAN) Hepatitis C Antibody NON-REACTI VE NON-REACT FELY [facility] Signal to Cut-Off 0.03 <1.00 [facility] Comment: HCV antibody was non-reactive. There is no laboratory evidence of HCV infection. In most cases, no further action is required. However, if recent HCV exposure is suspected, a test for HCV RNA (test code 82856) is suggested. For additional information please refer to http://education.[employer]/faq/WKP94q8 (This link is being provided for informational/ educational purposes only.) Test Performed at: [facility] [address] [place] [address] PRUDENCIO ALDANA DO,MPH 09/19/2019 9:17 AM CIVILIAN TECHNICIAN 09/19/2019 9:21 AM CIVILIAN TECHNICIAN Monica Tellez MOTEL MANAGERJoroto LAB - CHEMI STRY ORDERABLES Performing Organization Address [facility]/[place] [address] * VITAMIN B12 (09/19/2019 9:17 AM CIVILIAN TECHNICIAN) Pathologist [facility] Vitamin B12 656 200 - 1100 pg/mL [facility] Comment: Test Performed at: [facility] [id number] PRUDENCIO ALDANA DO,MPH Blood BLOOD SPECIMEN / Unknown 09/19/2019 9:17 AM CIVILIAN TECHNICIAN 09/19/2019 9:21 AM CIVILIAN TECHNICIAN Monica Tellez [employer] - CHEMI STRY ORDERABLES Performing Organization Address [facility] [place] [address] * TSH (09/19/2019 9:17 AM CIVILIAN TECHNICIAN) [facility] TSH 0.66 0.40 - 4.50 mIU/L [facility] Comment: Test Performed at: [facility] [address] PRUDENCIO ALDANA DO,MPH Blood BLOOD SPECIMEN / Unknown 09/19/2019 9:17 AM CIVILIAN TECHNICIAN 09/19/2019 9:21 AM CIVILIAN TECHNICIAN Monica Tellez MOTEL MANAGERJoroto LAB - CHEMI STRY ORDERABLES Performing Organization Address [facility]/[place] [address] * URINALYSIS REFLEX TO MICROSCOPIC NO CULTURE (07/25/2019 9:35 AM CDT) Color UA YELLOW YELLOW [facility] Appearance CLEAR CLEAR [facility] Specific [place] UA 1.016 1.001 - 1.035 [facility] pH UA 5.5 5.0 - 8.0 [facility] Glucose UA NEGATIVE NEGATIVE [facility] Bilirubin UA NEGATIVE NEGATIVE [facility] Ketone UA NEGATIVE NEGATIVE [facility] Blood UA NEGATIVE NEGATIVE [facility] Protein UA NEGATIVE NEGATIVE [facility] Nitrite UA NEGATIVE NEGATIVE [facility] Leukocyte UA NEGATIVE NEGATIVE [facility] Comment: REPORT COMMENT: FASTING:YES Test Performed at: [facility] [address] [place] [address] PRUDENCIO ALDANA DO,MPH 07/25/2019 9:35 AM CDT 07/25/2019 9:37 AM CDT Monica Gavin Rosalinda MOTEL MANAGER-[facility] LAB - URINA LYSIS ORDERABLES Performing Organization Address [facility] Co de Phone Number [facility] [address] [place] [id number] * (ABNORMAL) HEMOGLOBIN A1C (07/25/2019 9:35 AM [...] children. REPORT COMMENT: FASTING:YES Test Performed at: [facility] [place] [address] PRUDENCIO ALDANA DO,MPH 07/25/2019 9:35 AM CDT 07/25/2019 9:37 AM CDT Monica Gavin Rosalinda [facility] - CHEMI STRY ORDERABLES Performing Organization Address [facility] Co de Phone Number [facility] [address] [place] [address] * (ABNORMAL) CMP 14 ABAXIS (ALEC WAIVED) [...] space narrowing. Dictated by Georgie Huntley MD (resident associate). Dr. BOOKER Duong MD have personally reviewed [...] space narrowing. Dictated by Georgie Huntley MD (resident associate). IDr. BOOKER MD have personally reviewed and [...] L OR S UNILAT (11/14/2018 11:58 AM CIVILIAN TECHNICIAN) Anatomical Region Laterality Modality Spine X-Ray Angiograph y Narrative 11/14/2018 12:51 PM CIVILIAN TECHNICIAN History: 58 year old male with chronic [...] COMPLETE PFT W/WO BRONCHODILATOR (09/17/2018 6:49 AM CIVILIAN TECHNICIAN) Impressions Rhianna Moctezuma MD - 09/17/2018 6:49 AM CIVILIAN TECHNICIAN [facility] DEPARTMENT OF PULMONARY, CRITICAL CARE, AND [...] Rhianna Moctezuma MD - 09/17/2018 6:49 AM CIVILIAN TECHNICIAN Chencho Ambrocio MD 09/14/2018 4:51 PM Edith Hemphill MD RESPIRATORY THERAPY ORDERABLES * SIX MINUTE WALK (09/17/2018 6:49 AM CIVILIAN TECHNICIAN) Impressions Rhianna Moctezuma MD - 09/17/2018 6:49 AM CIVILIAN TECHNICIAN [facility] DEPARTMENT OF PULMONARY, CRITICAL CARE, AND [...] Rhianna Moctezuma MD - 09/17/2018 6:49 AM CIVILIAN TECHNICIAN Chencho Ambrocio MD 09/14/2018 4:47 PM Edith Hemphill MD RESPIRATORY THERAPY ORDERABLES * PFT OXYGEN DESATURATION STUDY (09/17/2018 6:49 AM CIVILIAN TECHNICIAN) Impressions Rhianna Moctezuma MD - 09/17/2018 6:49 AM CIVILIAN TECHNICIAN [facility] DEPARTMENT OF PULMONARY, CRITICAL CARE, AND [...] Rhianna Moctezuma MD - 09/17/2018 6:49 AM CIVILIAN TECHNICIAN Chencho Ambrocio MD 09/14/2018 4:44 PM Edith Hemphill MD PFT ORDERABLES * FRACTIONAL EXHALED NITRIC OXIDE (09/17/2018 6:49 AM CIVILIAN TECHNICIAN) Impressions Rhianna Moctezuma MD - 09/17/2018 6:49 AM CIVILIAN TECHNICIAN [facility] DEPARTMENT OF PULMONARY, CRITICAL CARE, AND [...] Rhianna Moctezuma MD - 09/17/2018 6:49 AM CIVILIAN TECHNICIAN Chencho Ambrocio MD 09/14/2018 4:43 PM Edith Hemphill MD RESPIRATORY THERAPY ORDERABLES * (ABNORMAL) GLUCOSE - POINT OF CARE (11/04/2015 10:34 PM CIVILIAN TECHNICIAN) Glucose WB/POC 210(H) 70 - 125 mg/dL 11/05/2015 6:16 AM CIVILIAN TECHNICIAN [facility] Blood BLOOD SPECIMEN / Unknown 11/04/2015 10:34 PM CIVILIAN TECHNICIAN 11/05/2015 6:16 AM CIVILIAN TECHNICIAN Narrative [facility] - 11/05/2015 6:16 AM CIVILIAN TECHNICIAN NOTIFIED CAREGIVER Robert Angelo DO LAB - POINT OF CARE ORDERABLES Performing Organization Address City/[facility]/ZIP Co de Phone Number [facility] [address] * VALPROIC ACID LEVEL (11/04/2015 11:03 AM CIVILIAN TECHNICIAN) [facility] Valproic Acid 57.84 50 - 100 ug/mL 11/04/2015 11:53 AM CIVILIAN TECHNICIAN [facility] Blood BLOOD SPECIMEN / Unknown Lab Venipuncture / Unknown 11/04/2015 11:03 AM CIVILIAN TECHNICIAN 11/04/2015 11:09 AM CIVILIAN TECHNICIAN Lucille Dong MOTEL MANAGER-BATTERY MECHANIC LAB - CHEMISTRY ORDERABLES Performing Organization Address City/[facility]/[place] Co de Phone Number [facility] [address] Care Teams Slot Shift Manager Relationship Specialty Start Date End Date Natalie Baum [address] [place] [address] PCP - General 05/06/24 Katina Casiano DO [address] [facility] [address] [facility] INTERNAL MEDICINE [place], [place] Hospitalist 06/05/23 Tracey Ang PA [address] [facility] [address] [place] [address] Physician Merchandise Flow Associate 08/15/23
--- OUTSIDE RECORDS SUMMARY | 2024-12-12 23:42 | XMS_ITS ---
Author Organization [facility] Address [address] [place] [address] Care Team Providers Care Supervisor Epoxy Fabrication Name Role Phone Radha Joseph Primary Care Provider [phone] Social History Sex Assigned At : Social History Observation Description Sex Assigned At Male Encounters Encounter Location Date Provider Diagnosis [facility] [address] [place] [address] 12/10/2024 Radha Joseph Plan Of Treatment No Information Progress Notes * Josafat CALVO FDOB: 1 (64 yo M)Acc No.[id number]:12/10/2024 Patient: Josafat GARCIA :1960 A ge:64 Y S ex:Male Address:[address], [place], [address] * true * Date: Generated for Printi ng/Faxing/eTransmitting on: 0 12/12/2024 11:42 PM MOLD MAKING SUPERVISOR
--- OUTSIDE RECORDS SUMMARY | 2024-12-12 23:42 | XMS_ITS | Encounter Summary ---
Author Organization [facility] Address [address] [place] [address] Phone Care Team Providers Care Chain Saw Operator Name Role Phone Matthew Mccabe MD Primary Care Prov ider Stan Meza MD Unavailable [phone] Encounter Details Date Type Department Care Team (Late st Contact Info) Description 10/24/2024 Documentation [facility] Oncology [address] [facility] Floor [address] [place] [address] Olimpia Parr, [facility] Social History Tobacco Use Types Packs/Day Years [...] on file Legal Sex Male 6:04 PM PRIVATE CLIENT ADVISOR Gender Identity Not on file Sexual Orientation Not on file documented as of this encounter Plan of Treatment Not on file documented as of this encounter Visit Diagnoses Not on filedocumented in this encounter Care Teams Chain Saw Operator Relationship Specialty Start Date End Date Matthew Mccabe MD [address] [place] [address] PCP - General Family Medicine 05/13/24 Stan Meza MD [address] [facility], [address] [place] [address] Medical Oncologist/Personal Care Assistant Medical Oncology 06/28/24 documented as of this encounter
--- OUTSIDE RECORDS SUMMARY | 2024-12-12 23:42 | XMS_ITS | Encounter Summary ---
Author Organization [facility] [place] [facility] Address [facility] [place] [address] Care Team Providers Care Electrical Lineworker Name Role Phone Amilcar Osorio MD Primary Care Provider [phone] Monica Tellez NP Primary Care Provider [phone] Encounter Details Date Type Department Care Team (Late st Contact Info) Description 04/09/2018 Hosp Visit Health system Outpatient Therapy [address] [place], [place] [address] Grecia Hess, [place] [address] Social History Tobacco Use Types Packs/Day Years [...] on filedocumented in this encounter Care Teams Electrical Lineworker Relationship Specialty Start Date End Date Amilcar Osorio MD [address] [facility] [address] [place] [address] PCP - General 05/01/17 09/04/19 Monica Tellez NP [address] [place] [address] PCP - General NURSE PRACTITIONER 09/05/19 documented as of this encounter
--- OUTSIDE RECORDS SUMMARY | 2024-12-12 23:42 | XMS_ITS | Encounter Summary ---
Author Organization [facility] Address [address] [place] [address] Care Team Providers Care Residential Roofer Helper Name Role Phone Ian Pollock MD Primary Care Provider Katina Casiano DO Unavailable [phone] Xavi ACOSTA MD, Jameel R Primary Care Provider + Katina Casiano DO Unavailable [phone] Tracey Ang PA Unavailable [phone] Belkis Angel INTERNATIONAL ACCOUNT MANAGER-HORSE BREEDER Primary Care Provider + Natalie Baum Primary Care Provider [phone] Reason for Visit * Reason Onset Date Comments Refill Request 04/13/2021 Encounter Details Date Type Department Care Team (Late st Contact Info) Description 04/13/2021 Telephone [facility] [address] [place] [address] Ian Pollock MD [address] [place] [address] Refill Request Social History Tobacco [...] to be refilled. Patient Call Back number: [phone] documented in this encounter Plan of Treatment [...] sciatica documented in this encounter Care Teams Residential Roofer Helper Relationship Specialty Start Date End Date Ian Pollock MD [address] [facility] [place] [address] PCP - General 08/21/20 05/29/23 Jameel Hurley III, MD [address] [facility] [place] [place] [address] PCP - General Internal Medicine 06/05/23 08/28/23 Belkis Angel APRN-HORSE BREEDER [address] [facility] 2nd [place] [address] PCP - General Nurse Practitioner 08/29/23 05/05/24 Natalie Baum [address] [place] [address] PCP - General 05/06/24 Katina Casiano DO [address] [facility] INTERNAL [place], [place] Resident - PCP Internal Medicine 08/10/22 05/29/23 Katina Casiano DO [address] [facility] INTERNAL [place], [place] Hospitalist 06/05/23 Tracey Ang PA [address] [facility] [address] [place] [address] Physician Decorative Engraver Apprentice 08/15/23 documented as of this encounter
--- OUTSIDE RECORDS SUMMARY | 2024-12-12 23:42 | XMS_ITS | Encounter Summary ---
Author Organization [facility] Address [facility] [place] [address] Care Team Providers Care Private Security Guard Name Role Phone Amilcar Osorio MD Primary Care Provider [phone] Monica Tellez NP Primary Care Provider [phone] Encounter Details Date Type Department Care Team (Late st Contact Info) Description 04/16/2018 Hosp Visit [facility] Outpatient Therapy [address] [place], [place] [address] Grecia Hess, [place] [address] Social History Tobacco Use Types Packs/Day Years [...] on filedocumented in this encounter Care Teams Private Security Guard Relationship Specialty Start Date End Date Amilcar Osorio MD [address] [facility] [address] [place] [address] PCP - General 05/01/17 09/04/19 Monica Tellez NP [address] [place] [address] PCP - General NURSE PRACTITIONER 09/05/19 documented as of this encounter
--- OUTSIDE RECORDS SUMMARY | 2024-12-12 23:42 | XMS_ITS | Clinical Summary ---
Author Organization [facility] Address [facility] [place] [address] Care Team Providers Care Sewing Machine Operator Zipper Name Role Phone Monica Tellez Gavin SADDLE CUTTER Primary Care Provider [phone] Allergies Active Allergy Reactions Criticality Noted Date [...] guaiFENesin (MUCINEX D OR) Activ e Umeclidinium [place] (INCRUSE ELLIPTA IN) Active hydrOXYzine 50 MG [...] Comments Blood Pressure 142/92 09/05/2019 11:03 AM SKIN SPECIALIST Pulse 60 09/05/2019 11:03 AM SKIN SPECIALIST Temperature 36.5 C (97.7 F) 09/05/2019 11:03 AM SKIN SPECIALIST Respiratory Rate - - Oxygen Saturation 97% 09/05/2019 11:03 AM SKIN SPECIALIST Inhaled Oxygen Concentration - - Weight 108 kg (238 lb) 09/05/2019 11:03 AM SKIN SPECIALIST Height 175.3 cm (5' 9 ) 09/05/2019 11:03 AM SKIN SPECIALIST Body Mass Index 35.15 09/05/2019 11:03 AM SKIN SPECIALIST Plan of Treatment Health Maintenance Due Date [...] patient's age to complete this topic Insurance [place] Care Teams Sewing Machine Operator Zipper Relationship Specialty Start Date End Date Monica Tellez NP PCP - General NURSE PRACTITIONER 09/05/19
--- OUTSIDE RECORDS SUMMARY | 2024-12-12 23:42 | XMS_ITS | Clinical Summary ---
Author Organization [facility] Address [address] [place] [address] Phone Care Team Providers Care Crown Presser Name Role Phone SADIE JACK MD Unavailable [...] On 0 10:36AM By PAUL DAVIS-ANAYA ; [facility] Gabapentin 600 MG Oral Tablet 05/26/2020 Provider: PAUL MAJANO Diagnosis: Radiculopathy, l umbar region TAKE 1 TABLET BY MOUTH THREE TIMES DAILY. Last Documented On 0 2:54PM By PAUL NUNEZ ; [facility] Triamcinolone Acetonide 0.1% External Cream 10/07/2019 Provider: Diagnosis: Last Documented On 9 11:28AM By Faye MEJÍA ; [facility] Spironolactone 50 MG Oral Tablet 10/07/2019 Provider : Diagnosis: Last Documented On 9 11:27AM By Faye MEJÍA ; [facility] Omeprazole 40 MG Oral Capsule Delayed Release 10/07/20 Provider: Diagnosis: Last Documented On 9 11:27AM By Faye MEJÍA ; [facility] Ibuprofen 600 MG Oral Tablet 10/07/2019 Provider: Diagnosis: Last Documented On 9 11:27AM By Faye MEJÍA ; [facility] hydrOXYzine Pamoate 50 MG Oral Capsule 10/07/2019 Pr ovider: Diagnosis: Last Documented On 9 11:26AM By Faye MEJÍA ; [facility] Carvedilol 25 MG Oral Tablet 10/07/2019 Provider: Diagnosis: Last Documented On 9 11:26AM By Faye MEJÍA ; [facility] Medications Administered Includes: Administered Medications from [...] Active Last Documented On 0 8:29AM ; [facility] Lisinopril Allergy 10/07/2019 Active Last Documented On 0 8:29AM ; [facility] Insurance Includes: Active Insurance Policies Plan Name Member ID Group # Subscriber Relationship Effect jeannine Dates - [facility] [id number] RYLEE GRAY Self Clinical Notes Includes: Clinical Notes from this encounter No Clinical Notes Recorded
--- OUTSIDE RECORDS SUMMARY | 2024-12-12 23:43 | XMS_ITS | Encounter Summary ---
Author Organization [facility] Address [address] [place] [address] Care Team Providers Care Collections And Archives Director Name Role Phone Matthew Mccabe MD Primary Care Prov ider Stan Meza MD Unavailable [phone] Encounter Details Date Type Department Care Team (Late st Contact Info) Description 08/20/2024 Documentation [facility] Nutrition Counseling [address] [place] [address] Social History Tobacco Use [...] on file Legal Sex Male 6:04 PM BIOLOGY LABORATORY ASSISTANT Gender Identity Not on file Sexual Orientation Not on file documented as of this encounter Plan of Treatment Not on file documented as of this encounter Visit Diagnoses Not on filedocumented in this encounter Additional Health Concerns Infection Onset Date Last Indicated Resolved Time COVID: Suspected 08/29/2024 08/29/2024 08/29/2024 1:59 PM CDT documented as of this encounter Care Teams Collections And Archives Director Relationship Specialty Start Date End Date Matthew Mccabe MD [address] [place] [address] PCP - General Family Medicine 05/13/24 Stan Meza MD [address] [facility], [address] [place] [address] Medical Oncologist/Director [employer] Medical Oncology 06/28/24 documented as of this encounter
--- OUTSIDE RECORDS SUMMARY | 2024-12-12 23:43 | XMS_ITS | Clinical Summary ---
Author Organization [facility] Address [address] [place] [address] Phone Care Team Providers Care Licensed Chemical Spray Technician Name Role Phone SADIE JACK MD Unavailable [...] On 0 10:36AM By PAUL DAVIS-ANAYA ; [facility] Gabapentin 600 MG Oral Tablet 05/26/2020 Provider: PAUL MAJANO Diagnosis: Radiculopathy, l umbar region TAKE 1 TABLET BY MOUTH THREE TIMES DAILY. Last Documented On 0 2:54PM By PAUL NUNEZ ; [facility] Triamcinolone Acetonide 0.1% External Cream 10/07/2019 Provider: Diagnosis: Last Documented On 9 11:28AM By Faye MEJÍA ; [facility] Spironolactone 50 MG Oral Tablet 10/07/2019 Provider : Diagnosis: Last Documented On 9 11:27AM By Faye MEJÍA ; [facility] Omeprazole 40 MG Oral Capsule Delayed Release 10/07/20 Provider: Diagnosis: Last Documented On 9 11:27AM By Faye MEJÍA ; [facility] Ibuprofen 600 MG Oral Tablet 10/07/2019 Provider: Diagnosis: Last Documented On 9 11:27AM By Faye MEJÍA ; [facility] hydrOXYzine Pamoate 50 MG Oral Capsule 10/07/2019 Pr ovider: Diagnosis: Last Documented On 9 11:26AM By Faye MEJÍA ; [facility] Carvedilol 25 MG Oral Tablet 10/07/2019 Provider: Diagnosis: Last Documented On 9 11:26AM By Faye MEJÍA ; [facility] Medications Administered Includes: Administered Medications [...] Active Last Documented On 0 8:29AM ; [facility] Lisinopril Allergy 10/07/2019 Active Last Documented On 0 8:29AM ; [facility] Insurance Includes: Active Insurance Policies Plan Name Member ID Group # Subscriber Relationship Effect jeannine Dates - [facility] [id number] RYLEE GRAY Self Clinical Notes Includes: Clinical Notes from this encounter No Clinical Notes Recorded
--- OUTSIDE RECORDS SUMMARY | 2024-12-12 23:43 | XMS_ITS | Clinical Summary ---
Author Organization [facility] Address [address] [place] [address] Phone Care Team Providers Care Project Scheduler Name Role Phone SADIE JACK MD Unavailable [...] On 0 10:36AM By PAUL DAVIS-ANAYA ; [facility] Gabapentin 600 MG Oral Tablet 05/26/2020 Provider: PAUL MAJANO Diagnosis: Radiculopathy, l umbar region TAKE 1 TABLET BY MOUTH THREE TIMES DAILY. Last Documented On 0 2:54PM By PAUL NUNEZ ; [facility] Triamcinolone Acetonide 0.1% External Cream 10/07/2019 Provider: Diagnosis: Last Documented On 9 11:28AM By Faye MEJÍA ; [facility] Spironolactone 50 MG Oral Tablet 10/07/2019 Provider : Diagnosis: Last Documented On 9 11:27AM By Faye MEJÍA ; [facility] Omeprazole 40 MG Oral Capsule Delayed Release 10/07/20 Provider: Diagnosis: Last Documented On 9 11:27AM By Faye MEJÍA ; [facility] Ibuprofen 600 MG Oral Tablet 10/07/2019 Provider: Diagnosis: Last Documented On 9 11:27AM By Faye MEJÍA ; [facility] hydrOXYzine Pamoate 50 MG Oral Capsule 10/07/2019 Pr ovider: Diagnosis: Last Documented On 9 11:26AM By Faye MEJÍA ; [facility] Carvedilol 25 MG Oral Tablet 10/07/2019 Provider: Diagnosis: Last Documented On 9 11:26AM By Faye MEJÍA ; [facility] Medications Administered Includes: Administered Medications from this encounter No Administered Medications Recorded Results Includes: Results discussed during this encounter No Results Recorded For Specified Dates History of Present Illness Includes: History of Present Illness from this encounter No History of Present Illness Recorded Social History Description Last Updated Smoker 04/29/2020 Last Documented On 0 3:51PM ; [facility] Smoking status : Current everyday smoker 10/07/2019 Last Documented On 0 3:51PM ; [facility] Medical History Includes: Medical History addressed during [...] Active Last Documented On 0 8:29AM ; [facility] Lisinopril Allergy 10/07/2019 Active Last Documented On 0 8:29AM ; [facility] Encounters Encounter Provider Location Date Check-In Time Check-Out Time Diagnosis RX ISSUE/REFILL PAUL DAVIS-ANAYA 06/23/2020 3:51PM 11:59PM Insurance Includes: Active Insurance Policies Plan Name Member ID Group # Subscriber Relationship Effect jeannine Dates 1 - [facility] [id number] RYLEE GRAY Self Clinical Notes Includes: Clinical Notes from this encounter No Clinical Notes Recorded
--- OUTSIDE RECORDS SUMMARY | 2024-12-12 23:43 | XMS_ITS ---
Author Organization [facility] Address [address] [place] [address] Phone Care Team Providers Care Semi Conductor Assembler Name Role Phone SADIE JACK MD Unavailable Unavailable Plan of Treatment Instructions to patient Intervention and counseling on cessation of tobacco use : Patient recieved smoking cessation handout Last Documented On 0 8:27AM ; [facility] Intervention and counseling on cessation of tobacco use : Patient recieved smoking cessation handout Last Documented On 0 9:50AM ; [facility] Intervention and counseling on cessation of tobacco use : Patient recieved smoking cessation handout Last Documented On 0 11:06AM ; [facility] Intervention and counseling on cessation of tobacco use : Patient recieved smoking cessation handout Last Documented On 9 11:25AM ; [facility] Education and Decision Aids were provided during visit for: Pill Count: 0 Last Documented On 0 9:52AM ; [facility] Assessments Includes: Assessments for all patient encounters Findings Encounter Date Chronic pain syndrome PAIN MANAGEMENT FO LLOW UP with PAUL L BHARATHI [facility] 04/29/2020 Last Documented On 0 2:51PM ; [facility] Lumbar canal stenosis with n eurogenic claudication PAIN MANAGEMENT FOLLOW UP with PAUL L BHARATHI [facility] 04/29/2020 Last Documented On 0 2:51PM ; [facility] Myalgia PAIN MANAGEMENT FOLLOW UP with T KAHLIL L [facility]ATH[facility] 04[facility]29/2020 Last Documented On 0 2:51PM ; [facility] Myalgia PAIN MANAGEMENT FOLLOW UP with T KAHLIL L BHARATHI [facility] 04/29/2020 Last Documented On 0 2:51PM ; [facility] Sacroiliitis PAIN MANAGEMENT FOLLOW UP with T KAHLIL L BHARATHI [facility]- 04/29/2020 Last Documented On 0 2:51PM ; [facility] Chronic pain syndrome PAIN MANAGEMENT FO LLOW UP with PAUL L BHARATHI [facility]- 12/27/2019 Last Documented On 0 12:47PM ; [facility] Lumbar radiculopathy PAIN MANAGEMENT FOL LOW UP with PAUL L BHARATHI [facility]- 12/27/2019 Last Documented On 0 12:47PM ; [facility] Myalgia PAIN MANAGEMENT FOLLOW UP with T KAHLIL L BHARATHI [facility]- 12/27/2019 Last Documented On 0 12:47PM ; [facility] Sacroiliitis PAIN MANAGEMENT FOLLOW UP with T KAHLIL L BHARATHI [facility]- 12/27/2019 Last Documented On 0 12:47PM ; [facility] Chronic pain syndrome PAIN MANAGEMENT FO LLOW UP with PAUL L BHARATHI [facility] 11/28/2019 Last Documented On 0 11:13AM ; [facility] Lumbar radiculopathy PAIN MANAGEMENT FOL LOW UP with PAUL L BHARATHI [facility]- 11/28/2019 Last Documented On 0 11:13AM ; [facility] Myalgia PAIN MANAGEMENT FOLLOW UP with T KAHLIL L BHARATHI [facility]- 11/28/2019 Last Documented On 0 11:13AM ; [facility] Sacroiliitis PAIN MANAGEMENT FOLLOW UP with T KAHLIL L BHARATHI [facility] 11/28/2019 Last Documented On 0 11:13AM ; [facility] Chronic pain syndrome PAIN MANAGEMENT NE W CONSULT with PAUL L BHARATHI [facility]- 10/07/2019 Last Documented On 9 9:45AM ; [facility] Lumbar radiculopathy PAIN MANAGEMENT NEW CONSULT with PAUL L BHARATHI [facility]- 10/07/2019 Last Documented On 9 9:45AM ; [facility] Myalgia PAIN MANAGEMENT NEW CONSULT with PAUL L BHARATHI [facility] 10/07/2019 Last Documented On 9 9:45AM ; [facility] Sacroiliitis PAIN MANAGEMENT NEW CONSULT with PAUL DAVIS-[facility] 10/07/2019 Last Documented On 9 9:45AM ; [facility] Instructions Includes: Instructions for all patient encounters Instructions to patient Intervention and counseling on cessation of tobacco use : Patient recieved smoking cessation handout Last Documented On 0 8:27AM ; [facility] Intervention and counseling on cessation of tobacco use : Patient recieved smoking cessation handout Last Documented On 0 9:50AM ; [facility] Intervention and counseling on cessation of tobacco use : Patient recieved smoking cessation handout Last Documented On 0 11:06AM ; [facility] Intervention and counseling on cessation of tobacco use : Patient recieved smoking cessation handout Last Documented On 9 11:25AM ; [facility] Education and Decision Aids were provided during visit for: Pill Count: 0 Last Documented On 0 9:52AM ; [facility] Medical Equipment - Implanted Devices Includes: Current and historical Devices No Medical Equipment Recorded Medications Includes: Current and historical Medications Current Medications (continue as prescribed) Tylenol with Codeine #3 300-30 MG Oral Tablet 06/24/2020 Provider: PAUL GALLEGO Diagnosis: Radiculopathy, l umbar region 1 po BID prn Last Documented On 0 10:36AM By PAUL DAVIS-BC ; [facility] Gabapentin 600 MG Oral Tablet 05/26/2020 Provider: PAUL DAVIS -BC Diagnosis: Radiculopathy, l umbar region TAKE 1 TABLET BY MOUTH THREE TIMES DAILY. Last Documented On 0 2:54PM By PAUL DAVIS-BC ; [facility] Triamcinolone Acetonide 0.1% External Cream 10/07/2019 Provider: Diagnosis: Last Documented On 9 11:28AM By Faye MEJÍA ; [facility] Spironolactone 50 MG Oral Tablet 10/07/2019 Provider : Diagnosis: Last Documented On 9 11:27AM By Faye MEJÍA ; [facility] Omeprazole 40 MG Oral Capsule Delayed Release 10/07/20 Provider: Diagnosis: Last Documented On 9 11:27AM By Faye MEJÍA ; [facility] Ibuprofen 600 MG Oral Tablet 10/07/2019 Provider: Diagnosis: Last Documented On 9 11:27AM By Faye MEJÍA ; [facility] hydrOXYzine Pamoate 50 MG Oral Capsule 10/07/2019 Pr ovider: Diagnosis: Last Documented On 9 11:26AM By Faye MEJÍA ; [facility] Carvedilol 25 MG Oral Tablet 10/07/2019 Provider: Diagnosis: Last Documented On 9 11:26AM By Faye MEJÍA ; [facility] Past Medications on file Tylenol with Codeine #3 300-30 MG Oral Tablet 05/12/2020 - 06/23/2020 Provider: PAUL NUNEZ Diagnosis: Radiculopathy, l umbar region 1 po BID prn Last Documented On 0 10:31AM By PAUL NUNEZ ; [facility] Lyrica 150 MG Oral Capsule 04/29/2020 - 06/24/2020 Provider: PAUL NUNEZ Diagnosis: Spinal stenosis, lumbar region with neurogenic claudication 1 CAPSULE TWO TIMES A DAY Last Documented On 0 10:24AM By PAUL NUNEZ ; [facility] Gabapentin 600 MG Oral Tablet 04/10/2020 - 05/26/2020 Provider: PAUL NUNEZ Diagnosis: Radiculopathy, l umbar region TAKE 1 TABLET BY MOUTH THREE TIMES DAILYdo not fill before 04/14/20 Last Documented On 0 2:41PM By PAUL NUNEZ ; [facility] Gabapentin 600 MG Oral Tablet 03/16/2020 - 04/09/2020 Provider: PAUL NUNZE Diagnosis: Radiculopathy, l umbar region TAKE 1 TABLET BY MOUTH THREE TIMES DAILY Last Documented On 0 7:19AM By PAUL DEMARCO ; [facility] Gabapentin 600 MG Oral Tablet 02/19/2020 - 03/16/2020 Provider: PAUL DEMARCO Diagnosis: Radiculopathy, l umbar region One tablet three times a day Last Documented On 0 2:26PM By PAUL DEMARCO ; [facility] Tylenol with Codeine #3 300-30 MG Oral Tablet 02/19/2020 - 05/11/2020 Provider: PAUL DEMARCO Diagnosis: Radiculopathy, l umbar region 1 po TID pr01/25/20 fill date Last Documented On 0 8:42AM By PAUL DEMARCO ; [facility] Tylenol with Codeine #3 300-30 MG Oral Tablet 01/23/2020 - 02/19/2020 Provider: PAUL DEMARCO Diagnosis: Radiculopathy, l umbar region 1 po BID pr01/25/20 fill date Last Documented On 0 2:53PM By PAUL DEMARCO ; [facility] Tylenol with Codeine #3 300-30 MG Oral Tablet 12/27/2019 - 01/22/2020 Provider: PAUL DEMARCO Diagnosis: Radiculopathy, l umbar region 1 po BID prn Last Documented On 0 12:53PM By PAUL NUNEZ ; [facility] Tylenol with Codeine #3 300-30 MG Oral Tablet 11/28/2019 - 12/27/2019 Provider: PAUL DEMARCO Diagnosis: Radiculopathy, l umbar region 1 po BID prn Last Documented On 0 10:22AM By PAUL DEMARCO ; [facility] Gabapentin 300 MG Oral Capsule 11/05/2019 - 04/29/2020 Provider: PAUL DEMARCOBC Diagnosis: Radiculopathy, l umbar region One tablet three times a day Last Documented On 0 8:29AM By Faye MEJÍA ; [facility] Gabapentin 300 MG Oral Capsule 10/07/2019 - 11/05/2019 Provider: PAUL NUNEZ Diagnosis: Radiculopathy, l umbar region as directed QHS x 3 days, BI D x 3 days then TID Last Documented On 0 12:20PM By PAUL NUNEZ ; [facility] Medications Administered Includes: Administered Medications in patient's [...] 10/07/2019 Last Documented On 9 9:45AM ; [facility] Medical History Includes: Medical History in [...] Active Last Documented On 0 8:29AM ; [facility] Lisinopril Allergy 10/07/2019 Active Last Documented On 0 8:29AM ; [facility] Insurance Includes: Active Insurance Policies Plan Name Member ID Group # Subscriber Relationship Effect jeannine Dates 1 - [employer]OL [employer] [facility] [id number] RYLEE GRAY Self Clinical Notes Includes: Signed Clinical Notes starting from 11/18/2022 No Clinical Notes Recorded
--- OUTSIDE RECORDS SUMMARY | 2024-12-12 23:44 | XMS_ITS | Encounter Summary ---
Author Organization [facility] Address [address] [place] [address] Care Team Providers Care Traffic Personnel Supervisor Name Role Phone Ian Pollock MD Primary Care Provider [phone] Katina Casiano DO Unavailable [phone] Xavi ACOSTA MD, Jameel Gaviria Primary Care Provider + Katina Casiano DO Unavailable [phone] Tracey Ang PA Unavailable [phone] Belkis Angel ADVERTISING SPACE CLERK-SALVAGER Primary Care Provider + Natalie Baum Primary Care Provider [phone] Encounter Details Date Type Department Care Team (Late st Contact Info) Description 03/03/2022 Telephone [facility] [address] [place] [address] Alvarez Duarte MD [address] [address] Social History Tobacco Use Types Packs/Day Years [...] pm. He is having transportation issues med [employer] ([employer]) does not run that late. He will call back to schedule when he can figure out his transportation. Please cancel this appt for him. Patient Call Back number: [phone] documented in this encounter Plan of Treatment [...] on filedocumented in this encounter Care Teams Traffic Personnel Supervisor Relationship Specialty Start Date End Date Ian Pollock MD [address] [facility] [place] [address] PCP - General 08/21/20 05/29/23 Jameel Hurley III, MD [address] [facility] [place] [address] PCP - General Internal Medicine 06/05/23 08/28/23 Belkis Angel APRN-SALVAGER [address] [facility] 2[address] [place] [address] PCP - General Nurse Practitioner 08/29/23 05/05/24 Natalie Baum [address] [place] [address] PCP - General 05/06/24 Katina Casiano DO [address] [facility] [address] DIV OF [facility] [place], [place] Resident - PCP Internal Medicine 08/10/22 05/29/23 Katina Casiano DO [address] [facility] [address] [facility] [place], [place] Hospitalist 06/05/23 Tracey Ang PA [address] [facility] [address] [place] [address] Physician Windows Desktop Engineer 08/15/23 documented as of this encounter
--- OUTSIDE RECORDS SUMMARY | 2024-12-12 23:44 | XMS_ITS | Clinical Summary ---
Author Organization [facility] Address [address] [place] [address] Phone Care Team Providers Care Interventional Sale Consultant Name Role Phone SADIE JACK MD Unavailable [...] On 0 10:36AM By PAUL DAVIS-ANAYA ; [facility] Gabapentin 600 MG Oral Tablet 05/26/2020 Provider: PAUL MAJANO Diagnosis: Radiculopathy, l umbar region TAKE 1 TABLET BY MOUTH THREE TIMES DAILY. Last Documented On 0 2:54PM By PAUL NUNEZ ; [facility] Triamcinolone Acetonide 0.1% External Cream 10/07/2019 Provider: Diagnosis: Last Documented On 9 11:28AM By Faye MEJÍA ; [facility] Spironolactone 50 MG Oral Tablet 10/07/2019 Provider : Diagnosis: Last Documented On 9 11:27AM By Faye MEJÍA ; [facility] Omeprazole 40 MG Oral Capsule Delayed Release 10/07/20 Provider: Diagnosis: Last Documented On 9 11:27AM By Faye MEJÍA ; [facility] Ibuprofen 600 MG Oral Tablet 10/07/2019 Provider: Diagnosis: Last Documented On 9 11:27AM By Faye MEJÍA ; [facility] hydrOXYzine Pamoate 50 MG Oral Capsule 10/07/2019 Pr ovider: Diagnosis: Last Documented On 9 11:26AM By Faye MEJÍA ; [facility] Carvedilol 25 MG Oral Tablet 10/07/2019 Provider: Diagnosis: Last Documented On 9 11:26AM By Faye MEJÍA ; [facility] Medications Administered Includes: Administered Medications from this encounter No Administered Medications Recorded Results Includes: Results discussed during this encounter No Results Recorded For Specified Dates History of Present Illness Includes: History of Present Illness from this encounter No History of Present Illness Recorded Social History Description Last Updated Smoker 04/29/2020 Last Documented On 0 10:13AM ; [facility] Smoking status : Current everyday smoker 10/07/2019 Last Documented On 0 10:13AM ; [facility] Medical History Includes: Medical History addressed [...] Active Last Documented On 0 8:29AM ; [facility] Lisinopril Allergy 10/07/2019 Active Last Documented On 0 8:29AM ; [facility] Encounters Encounter Provider Location Date Check-In Time Check-Out Time Diagnosis RX ISSUE/REFILL PAUL DAVIS-ANAYA 05/11/2020 10:13AM 11:59PM Insurance Includes: Active Insurance Policies Plan Name Member ID Group # Subscriber Relationship Effect jeannine Dates 1 - [facility] [id number] RYLEE GRAY Self Clinical Notes Includes: Clinical Notes from this encounter No Clinical Notes Recorded
--- OUTSIDE RECORDS SUMMARY | 2024-12-12 23:44 | XMS_ITS | Encounter Summary ---
Author Organization [facility] Healthcare Address [address] [place] [address] Care Team Providers Care Release And Technical Records Clerk Name Role Phone Matthew Mccabe MD Primary Care Prov ider Stan Meza MD Unavailable [phone] Reason for Visit * Reason Comments Shortness of Breath Encounter Details Date Type Department Care Team (Late st Contact Info) Description 12/12/2024 8:08 AM CHEMICAL ENGINEERING PROFESSOR - 12/12/2024 1:30 PM CHEMICAL ENGINEERING PROFESSOR Emergency Emergency Department [address] [place] [address] Julio Rodriguez MD [address] [place] [address] Shortness of breath (Primary Dx); [...] on file Legal Sex Male 6:04 PM CHEMICAL ENGINEERING PROFESSOR Gender Identity Not on file Sexual Orientation Not on file documented as of this encounter Last Filed Vital Signs Vital Sign Reading Time Taken Comments Blood Pressure 205/132 12/12/2024 1:00 PM CHEMICAL ENGINEERING PROFESSOR Pulse 79 12/12/2024 1:00 PM CHEMICAL ENGINEERING PROFESSOR Temperature 36.7 C (98.1 F) 12/12/2024 8:02 AM CHEMICAL ENGINEERING PROFESSOR Respiratory Rate 20 12/12/2024 1:00 PM CHEMICAL ENGINEERING PROFESSOR Oxygen Saturation 100% 12/12/2024 1:00 PM CHEMICAL ENGINEERING PROFESSOR Inhaled Oxygen Concentration - - Weight 83.9 kg (185 lb) 12/12/2024 8:02 AM CHEMICAL ENGINEERING PROFESSOR Height 175.3 cm (5' 9 ) 12/12/2024 8:02 AM CHEMICAL ENGINEERING PROFESSOR Body Mass Index 27.32 12/12/2024 8:02 AM CHEMICAL ENGINEERING PROFESSOR documented in this encounter Discharge Instructions * Discharge Instructions* Anderson Bahena MD - 12/12/2024 12:03 PM CHEMICAL ENGINEERING PROFESSOR You were seen in the emergency department [...] breathing, dizziness, uncontrollable vomiting, fainting, or confusion. ICAL ENGINEERING PROFESSOR ICAL ENGINEERING PROFESSOR * Attachments The following attachments cannot be sent through Care Everywhere. * Shortness of Breath (Dyspnea) (Uzbek) documented in this encounter Medications at Time [...] unit tablet Take 1 tablet by mouth benefits coordinator before breakfast 30 tablet 3 4 carvediloL [...] Comments: Mary Ellen Andrews RN 12/12/24 0808 ICAL ENGINEERING PROFESSOR * Aliza Siu RN - 12/12/2024 7:59 AM CST Pt to ED c/o increased shortness of breath since last night, worse with exertion. History of asthma, lung cancer, pneumonia (a few weeks ago). Pt endorses new cough and nasal congestion. A&Ox4. Respirations even and unlabored on 2L NC. ICAL ENGINEERING PROFESSOR documented in this encounter Miscellaneous Notes * ED Procedure Note - Julio Rodriguez MD - 12/12/2024 8:16 AM CHEMICAL ENGINEERING PROFESSOR Associated Order(s): ECG 12 lead Procedure ECG [...] the ED Julio Rodriguez MD 12/12/24 0816 ICAL ENGINEERING PROFESSOR * ED Pre-Arrival Note - Eric Crowe RN - 12/12/2024 7:44 AM CHEMICAL ENGINEERING PROFESSOR Pre-Arrival Note Patient being sent from [facility] scan for evaluation of shortness of breath. Patient was scheduled to have a lung cancer staging scan but developed shortness of breath when trying to obtain IV access. Pt did not receive scan so sending patient to ED for evaluation of the shortness of breath. Comingby transport. Eric Crowe RN ICAL ENGINEERING PROFESSOR documented in this encounter Plan of Treatment Not on file documented as of this encounter Procedures Procedure Name Priority Date/Time Associated Diagnosis Comments CT CHEST ABDOMEN PELVIS W CONTRAST ED 12/12/2024 11:00 [address] HEAD WO CONTRAST ED 12/12/2024 1 1:00 AM CHEMICAL ENGINEERING PROFESSOR TROPONIN I HIGH-SENSITIVITY 2-HOUR Timed 12/12/2024 10:33 AM CHEMICAL ENGINEERING PROFESSOR XR CHEST PA LATERAL 2 VIEWS ED 12/12/2024 10:28 AM CHEMICAL ENGINEERING PROFESSOR INFLUENZA A/B, RSV, AND COVID-19 PCR STAT 12/12/2024 9:35 AM CHEMICAL ENGINEERING PROFESSOR PRO B-TYPE NATRIURETIC PEPTIDE STAT 12/12/2024 9:35 AM CHEMICAL ENGINEERING PROFESSOR TROPONIN I HIGH-SENSITIVITY SERIES (BASELINE, 2HR, 4HR, 6HR) STAT 12/12/2024 8:45 AM CHEMICAL ENGINEERING PROFESSOR EGFR STAT 12/12/2024 8:45 AM CHEMICAL ENGINEERING PROFESSOR DIFFERENTIAL AUTO STAT 12/12/2024 8:4 5 AM CHEMICAL ENGINEERING PROFESSOR CBC WITH AUTO DIFFERENTIAL STAT 12/12/2024 8:45 AM CHEMICAL ENGINEERING PROFESSOR COMPREHENSIVE METABOLIC PANEL STAT 12/12/2024 8:45 AM CHEMICAL ENGINEERING PROFESSOR ECG 12-LEAD STAT 12/12/2024 8:16 AM CHEMICAL ENGINEERING PROFESSOR documented in this encounter Results * CT Head WO Contrast (12/12/2024 11:00 AM CHEMICAL ENGINEERING PROFESSOR) Anatomical Region Laterality Modality Head and Neck N/A Computed Tomogra phy 12/12/2024 11:0 7 AM CHEMICAL ENGINEERING PROFESSOR Impressions 12/12/2024 11:07 AM CHEMICAL ENGINEERING PROFESSOR 1. No acute intracranial hemorrhage, mass effect, or large new area of edema.. Note is made that a contrast-enhanced examination would be more sensitive for the detection of intracranial metastases. Electronically signed by: Luciano Napier M.D. Narrative 12/12/2024 11:07 AM CHEMICAL ENGINEERING PROFESSOR EXAMINATION: CT head without contrast HISTORY: Metastatic [...] Abdomen Pelvis W Contrast (12/12/2024 11:00 AM CHEMICAL ENGINEERING PROFESSOR) Anatomical Region Laterality Modality Body N/A Computed Tomogra phy 12/12/2024 11:3 3 AM CHEMICAL ENGINEERING PROFESSOR Impressions 12/12/2024 11:33 AM CHEMICAL ENGINEERING PROFESSOR 1. Similar burden of osseous metastasis, treated bilateral adrenal metastasis, and slightly smaller measurement of left hilar tumor. No evidence of progression. 2. Similar degree of mild severity peripheral lung damage/organized pneumonia. Electronically signed by: El Bee M.D. Narrative 12/12/2024 11:33 AM CHEMICAL ENGINEERING PROFESSOR EXAMINATION: Computed tomography of the chest, abdomen [...] Troponin I high-sensitivity 2-hour (12/12/2024 10:33 AM CHEMICAL ENGINEERING PROFESSOR) Trop I hs 6 <=35 ng/L Comment: Interpretive Data For further hscTnI resources including the diagnostic algorithm and an aid in interpretation, copy and paste this link: https://bjhlab.testcatalog.org/show/hsTrop-[email or web address] Current Interpretive Data last revised 2020. Trop I hs delta 1 ng/L [facility] Trop I hs interp Insignificant [facility] Blood 12/12/2024 10:3 3 AM CHEMICAL ENGINEERING PROFESSOR 12/12/2024 10:45 AM CHEMICAL ENGINEERING PROFESSOR us Natalie Guzman MD LAB BLOOD ORDERABLES Yolette l Result [facility] Department [place] [address] * XR Chest PA Lateral 2 Views (12/12/2024 10:28 AM CHEMICAL ENGINEERING PROFESSOR) Anatomical Region Laterality Modality Body, Chest N/A Computed Radiogr aphy 12/12/2024 11:1 1 AM CHEMICAL ENGINEERING PROFESSOR Impressions 12/12/2024 11:11 AM CHEMICAL ENGINEERING PROFESSOR Comparison May 2024. Low lung volumes. Mild [...] El Bee M.D. Narrative 12/12/2024 11:11 AM CHEMICAL ENGINEERING PROFESSOR EXAMINATION: 2 view chest radiograph Procedure Note [...] and COVID-19 PCR Nasopharyngeal (12/12/2024 9:35 AM CHEMICAL ENGINEERING PROFESSOR) [facility] COVID-19 RNA Negative Negative [facility] Influenza A RNA Negative Negative [facility] Influenza B RNA Negative Negative [facility] RSV RNA Negative Negative [facility] Comment: Interpretive data: Testing performed by Laboratory ([phone]). This test is performed using the [employer] Xpert Xpress CoV-2/Flu/RSV plus assay. This is a multiplex, real-time reverse transcriptase PCR assay intended for the qualitative detection of nucleic acid from SARS-CoV-2, influenza A, influenza B, and respiratory syncytial virus. This assay has been cleared by the [place] Food and Drug administration. The performance characteristics have been verified by the Laboratory. Results must be considered in the clinical context, and a negative result does not rule out infection. Interpretive Data last revised 2023 Nasopharyngeal 12/12/2024 9: 35 AM CHEMICAL ENGINEERING PROFESSOR 12/12/2024 9:46 AM CHEMICAL ENGINEERING PROFESSOR Narrative [facility] - 12/12/2024 10:27 AM CHEMICAL ENGINEERING PROFESSOR Is the Patient experiencing symptoms consistent with COVID?->No Anderson Bahena MD LAB MICROBIOLOGY - GENE RAL ORDERABLES Final Result [facility] Department [place] [address] [facility] * (ABNORMAL) Pro B-type natriuretic peptide (12/12/2024 9:35 AM CHEMICAL ENGINEERING PROFESSOR) NT-proBNP 695(H) <=300 pg/mL Comment: Interpretive Comments: [...] Revised Date: 2018. Blood 12/12/2024 9:35 AM CHEMICAL ENGINEERING PROFESSOR 12/12/2024 9:48 AM CHEMICAL ENGINEERING PROFESSOR us Anderson Bahena MD LAB BLOOD ORDERABLES Fi nal Result [facility] Department [place] [address] * eGFR (12/12/2024 8:45 AM CHEMICAL ENGINEERING PROFESSOR) eGFR >90 >=60 mL/min/1. 73 m2 Comment: [...] last reviewed 2021. Blood 12/12/2024 8:45 AM CHEMICAL ENGINEERING PROFESSOR 12/12/2024 8:55 AM CHEMICAL ENGINEERING PROFESSOR Julio Rodriguez MD LAB BLOOD ORDERABLES F inal Result [facility] Department [place] [address] * (ABNORMAL) Differential, auto (12/12/2024 8:45 AM CHEMICAL ENGINEERING PROFESSOR) Neutrophil abs 3.7 1.5 - 6.5 K/cumm Imm gran abs 0.0 0.0 - 0.1 K/cumm [facility] Lymphocyte abs 0.7(L) 0.8 - 3.3 K/cumm [facility] Monocyte abs 0.4 0.2 - 0.8 K/cumm [facility] Eosinophil abs 0.3 0.0 - 0.5 K/cumm [facility] Basophil abs 0.0 0.0 - 0.1 K/cumm [facility] Neutrophil pct 72.0 % [facility] Comment: Interpretive Data Percent cell count reference ranges are not reported, since discordance with absolute values may lead to misinterpretation of CBC data. Current Interpretive Data was last revised on 2018. Imm gran pct 0.4 % [facility] Comment: Interpretive Data Percent cell count reference ranges are not reported, since discordance with absolute values may lead to misinterpretation of CBC data. Current Interpretive Data was last revised on 2018. Lymphocyte pct 12.7 % [facility] Comment: Interpretive Data Percent cell count reference ranges are not reported, since discordance with absolute values may lead to misinterpretation of CBC data. Current Interpretive Data was last revised on 2018. Monocyte pct 7.6 % [facility] Comment: Interpretive Data Percent cell count reference ranges are not reported, since discordance with absolute values may lead to misinterpretation of CBC data. Current Interpretive Data was last revised on 2018. Eosinophil pct 6.7 % [facility] Comment: Interpretive Data Percent cell count reference ranges are not reported, since discordance with absolute values may lead to misinterpretation of CBC data. Current Interpretive Data was last revised on 2018. Basophil pct 0.6 % [facility] Comment: Interpretive Data Percent cell count reference ranges are not reported, since discordance with absolute values may lead to misinterpretation of CBC data. Current Interpretive Data was last revised on 2018. Blood 12/12/2024 8:45 AM CHEMICAL ENGINEERING PROFESSOR 12/12/2024 8:55 AM CHEMICAL ENGINEERING PROFESSOR Julio Rodriguez MD LAB BLOOD ORDERABLES F inal Result [facility] Department [place] [address] * Troponin I high-sensitivity series (baseline, 2hr, 4hr, 6hr) (12/12/2024 8:45 AM CHEMICAL ENGINEERING PROFESSOR) Trop I hs 5 <=35 ng/L Comment: Interpretive Data For further hscTnI resources including the diagnostic algorithm and an aid in interpretation, copy and paste this link: https://bjhlab.testcatalog.org/show/[email or web address] Current Interpretive Data last revised 2020. Blood 12/12/2024 8:45 AM CHEMICAL ENGINEERING PROFESSOR 12/12/2024 8:55 AM CHEMICAL ENGINEERING PROFESSOR Julio Rodriguez MD LAB BLOOD ORDERABLES F inal Result Performing Organization Address City/[facility]/ZIP Co de Phone Number [facility] [place] [address] * (ABNORMAL) CBC with auto differential (12/12/2024 8:45 AM CHEMICAL ENGINEERING PROFESSOR) Pathologist [facility] WBC 5.1 3.8 - 9.9 K/cumm Hgb 10.3(L) 13.0 - 17.5 g/dL [facility] Hct 31.8(L) 38.9 - 50.3 % [facility] Plt 176 150 - 400 K/cumm [facility] MPV 8.9(L) 9.1 - 12.3 fL [facility] RBC 3.55(L) 4.30 - 5.80 M/cumm [facility] MCV 89.6 81.3 - 96.4 fL [facility] MCH 29.0 27.1 - 33.3 pg [facility] MCHC 32.4 32.3 - 35.7 g/dL [facility] RDW CV 19.2(H) 11.1 - 14.9 % [facility] RDW SD 63.2(H) 35.7 - 48.1 fL [facility] NRBC abs 0.00 0.00 - 0.01 K/cumm [facility] Blood 12/12/2024 8:45 AM CHEMICAL ENGINEERING PROFESSOR 12/12/2024 8:55 AM CHEMICAL ENGINEERING PROFESSOR Julio Rodriguez MD LAB BLOOD ORDERABLES F inal Result [facility] [place] [address] * (ABNORMAL) Comprehensive metabolic panel (12/12/2024 8:45 AM CHEMICAL ENGINEERING PROFESSOR) Sodium 133(L) 135 - 145 mmol/L Potassium, pl 4.0 3.3 - 4.9 mmol/L [facility] Chloride 97 97 - 110 mmol/L [facility] CO2 29 22 - 32 mmol/L [facility] Anion gap 7 2 - 15 mmol/L [facility] BUN 3(L) 6 - 25 mg/dL [facility] Creatinine 0.54(L) 0.80 - 1.30 mg/dL [facility] Glucose 101 70 - 199 mg/dL [facility] Comment: Interpretive Data Fasting glucose >/= 126 [...] 2022. Calcium 9.4 8.5 - 10.3 mg/dL [facility] Bilirubin, total 0.4 0.1 - 1.2 mg/dL [facility] Protein, pl 6.6 6.5 - 8.5 g/dL [facility] Albumin 3.6 3.5 - 5.0 g/dL [facility] Alk phos 121 40 - 130 Units/L [facility] ALT 11 7 - 55 Units/L [facility] AST 19 10 - 50 Units/L [facility] Blood 12/12/2024 8:45 AM CHEMICAL ENGINEERING PROFESSOR 12/12/2024 8:55 AM CHEMICAL ENGINEERING PROFESSOR us Julio Rodriguez MD LAB BLOOD ORDERABLES F inal Result [facility] Department [place] [address] * ECG 12-LEAD (12/12/2024 8:16 AM CHEMICAL ENGINEERING PROFESSOR) Narrative [facility] - 12/12/2024 8:16 AM CHEMICAL ENGINEERING PROFESSOR Julio Rodriguez MD 12/12/2024 8:16 AM ECG [...] Julio Rodriguez MD ECG ORDERABLES Final Result [facility] documented in this encounter Visit Diagnoses Diagnosis [...] onia, Community Acquired Given 12/12/2024 1:15 PM CHEMICAL ENGINEERING PROFESSOR 1,000 mg 120 mL/hr doxycycline (VIBRAMYCIN) tablet/capsule 100 mg 100 mg, oral, Once, On Evette 12/12/24 at 1306, For 1 dose, Give 2 hrs before or 2 hrs after MVI, antacids, or other products containing sucralfate, magnesium, aluminum, iron, or zinc. May be taken without regard to meals., Indications: Pneumonia, Community AcquiredIndications:Pneum onia, Community Acquired Given 12/12/2024 1:15 PM CHEMICAL ENGINEERING PROFESSOR 100 mg ioversoL (OPTIRAY 350) syringe 75 mL 75 mL, intravenous, Once in imaging, contrast, Starting on Evette 12/12/24 at 1048, For 1 dose Contrast Given 12/12/2024 10:56 AM CHEMICAL ENGINEERING PROFESSOR 70 mL documented in this encounter Discontinued [...] Administered Medications Times are shown in CHEMICAL ENGINEERING PROFESSOR. Scheduled Medication Order 12/10/2024 12/11/2024 12/12/2024 [id number] [...] 12/12/2024 documented in this encounter Care Teams Release And Technical Records Clerk Relationship Specialty Start Date End Date Matthew Mccabe MD [address] [place] [address] PCP - General Family Medicine 05/13/24 Stan Meza MD [address] [facility] IM MEDICAL ONCOLOGY, [address] [place] [address] Medical Oncologist/Fruit Farmer Medical Oncology 06/28/24 documented as of this encounter
--- OUTSIDE RECORDS SUMMARY | 2024-12-12 23:44 | XMS_ITS | Clinical Summary ---
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 before breakfast 30 tablet 3 09/25/20 24 [...] Department Care Team Description 12/12/2024 8:08 AM HOME HEALTH AIDE CAREGIVER - 12/12/2024 1:30 PM HOME HEALTH AIDE CAREGIVER Emergency [facility] Emergency Department 1 [place] [address] Julio Rodriguez MD Shortness of breath (Primary Dx); History of lung cancer; Pneumonia due to infectious organism, unspecified laterality, unspecified part of lung Discharge Disposition: Discharge to home or self care 12/12/2024 Orders Only [facility] [address] [place] [phone] Sasha Hernandes RN Hypokalemia (Primary Dx); Primary cancer of left lower lobe of lung (HCC) 12/10/2024 Orders Only [facility] [address] [place] [phone] Sasha Hernandes RN Primary cancer of left lower lobe of lung (HCC) (Primary Dx); Metastasis to bone (CMS/HCC) (HCC) 12/09/2024 Documentation [facility] [address] [place] [address] Floor 5 [place] [address] Sarah Brunner, MULTIPLE DRILL OPERATOR 12/05/2024 10:30 AM HOME HEALTH AIDE CAREGIVER Infusion [facility] - Infusion [address] [facility] Floor 6 [place] [address] Primary cancer of left lower lobe of lung (HCC) (Primary Dx); Hypokalemia 12/05/2024 9:20 AM HOME HEALTH AIDE CAREGIVER Office Visit [facility] [address] [place] [address] Floor 5 [place] [address] Shari Quintana, LE Primary cancer of left lower lobe of lung (HCC) (Primary Dx); Hypokalemia 12/05/2024 8:30 AM HOME HEALTH AIDE CAREGIVER Lab [facility] - Lab Collection [address] [place] [address] Floor 5 [place] [address] Primary cancer of left lower lobe of lung (HCC); Hypokalemia 12/05/2024 Social Work [facility] [address] [place] [address] Floor 5 [place] [address] Sarah Brunner, LAURIE 12/05/2024 Telephone [facility] Nutrition Counseling 1 [place] [address] Dagmar Pickard, LARRY 11/29/2024 Telephone [facility] [address] [place] [address] 5 [place] [address] Sasha Hernandes RN 11/28/2024 Telephone [facility] [address] [place] [address] Floor 5 [place] [address] Sasha Hernandes RN 11/28/2024 Orders Only [facility] [address] [place] [address] Floor 5 [place] [address] Sasha Hernandes RN Primary cancer of left lower lobe of lung (HCC) (Primary Dx); Hypokalemia 11/27/2024 Orders Only [facility] [address] [place] [address] Floor 5 [place] [address] Sasha Hernandes RN Primary cancer of left lower lobe of lung (HCC) (Primary Dx) 11/25/2024 Social Work [facility] [address] [place] [phone] Sarah Brunner, [facility] 11/14/2024 8:00 AM HOME HEALTH AIDE CAREGIVER - 11/14/2024 11:59 PM HOME HEALTH AIDE CAREGIVER [facility] [address] [place] [address] Stan Meza MD Hypokalemia (Primary Dx); Primary cancer of left lower lobe of lung (HCC) Discharge Disposition: Discharge to home or self care 11/14/2024 Orders Only [facility] [address] [place] [phone] Sasha Hernandes RN 11/14/2024 Orders Only [facility] [address] [place] [phone] Sasha Hernandes RN Hypokalemia (Primary Dx) 11/11/2024 Social Work [facility] [address] [place] [phone] Sarah Brunner, [facility] 11/11/2024 Documentation [facility] Radiation Oncology [address] [place] [address] [place] [address] Delmi Saxena, [facility] 11/11/2024 [facility] Rad[facility] Oncology [address] [place] [address] [place] [address] Jeffrey Ham MD 11/11/2024 Orders Only [facility] [address] [place] [phone] Sasha Hernandes RN Metastasis to bone (CMS/HCC) (HCC) (Primary Dx); Primary cancer of left lower lobe of lung (HCC) 11/07/2024 10:30 AM HOME HEALTH AIDE CAREGIVER [facility] - Infusion [facility] 5 [place] [address] Primary cancer of left lower lobe of lung (HCC) (Primary Dx) 11/07/2024 9:20 AM HOME HEALTH AIDE CAREGIVER Office Visit [facility] [address] [place] [phone] Stan Meza MD Primary cancer of left lower lobe of lung (HCC) (Primary Dx); Metastasis to bone (CMS/HCC) (HCC) 11/07/2024 8:15 AM HOME HEALTH AIDE CAREGIVER Lab [facility] Lab [address] [place] [phone] Primary cancer of left lower lobe of lung (HCC) 11/07/2024 8:00 AM HOME HEALTH AIDE CAREGIVER Lab [facility] - Lab Collection [address] [place] [address] Primary cancer of left lower lobe of lung (HCC); Metastasis to bone (CMS/HCC) (HCC) 11/06/2024 Orders Only [facility] [address] [place] [phone] Sasha Hernandes RN Primary cancer of left lower lobe of lung (HCC) (Primary Dx); Metastasis to bone (CMS/HCC) (HCC) 11/04/2024 Social Work [facility] [address] [place] [phone] Sarah Brunner, MULTIPLE DRILL OPERATOR 10/29/2024 Social Work [facility] [address] [place] [phone] Carissa Long, MULTIPLE DRILL OPERATOR 10/29/2024 Telephone [facility] [address] [place] [phone] Kelly Montes, [facility] 10/28/2024 Telephone [facility] [address] [place] [address] Maddy Freire, ALYX 10/25/2024 2:15 PM HOME HEALTH AIDE CAREGIVER - 10/25/2024 11:59 PM [facility] Hospital [facility] Radiology [facility] [address] [place] [address] Diagnosis unknown Discharge Disposition: Discharge to home or self care 10/25/2024 Telephone [facility] [address] [place] [address] Floor 5 [place] [address] Sasha Hernandes, RN 10/24/2024 Telephone [facility] Nutrition Counseling 1 [place] [address] Dagmar Pickard, RD 10/24/2024 Documentation [facility] [address] [place] [address] Floor 8 [place] [address] Olimpia Parr RMA 10/18/2024 Documentation [facility] [address] [place] [address] Floor 5 [place] [address] Sarah Brunner, MULTIPLE DRILL OPERATOR 10/17/2024 Telephone [facility] Nutrition Counseling 1 [place] [address] Dagmar Pickard, RD 10/17/2024 Orders Only [facility] [address] [place] [address] Floor 5 [place] [address] Pool Hong, [facility] 10/15/2024 Documentation [address] [address] [address] [place] [address] Gayatri Garza RN 10/14/2024 Social Work [facility] [address] [place] [address] Floor 5 [place] [address] Sarah Brunner, MULTIPLE DRILL OPERATOR 10/10/2024 Telephone [facility] - Palliative Care [address] [facility] [place] [address] Mariah Altamirano, RN 10/03/2024 8:30 AM HOME HEALTH AIDE CAREGIVER Infusion [facility] - Infusion [address] [facility] Floor 5 [place] [address] Primary cancer of left lower lobe of lung (HCC) (Primary Dx) 10/03/2024 7:30 AM HOME HEALTH AIDE CAREGIVER Lab [facility] - Lab Collection [address] [facility] Floor 5 [place] [address] Primary cancer of left lower lobe of lung (HCC) 10/03/2024 Telephone [facility] ([facility] - [facility] ENT [address] [place] [address] [facility] 11th [place] [address] [place] [address] Alexsandra Augustine, 09/30/2024 Social Work [facility] On[facility] Floor 5 [place] [address] Sarah Brunner, MULTIPLE DRILL OPERATOR 09/25/2024 9:00 AM HOME HEALTH AIDE CAREGIVER Infusion [facility] - Infusion [address] [facility] Floor 5 [place] [address] Primary cancer of left lower lobe of lung (HCC) (Primary Dx) 09/25/2024 8:00 AM HOME HEALTH AIDE CAREGIVER Office Visit [facility] [address] [place] [address] Floor 5 [place] [address] Stan Meza MD Primary cancer of left lower lobe of lung (HCC) (Primary Dx) 09/25/2024 7:00 AM HOME HEALTH AIDE CAREGIVER Lab [facility] - Lab Collection [facility] Floor [address] [place] [address] Primary cancer of left lower lobe of lung (HCC) 09/23/2024 Documentation [facility] Palliative Care [address] [place] [phone] Gayatri Garza RN 09/20/2024 Documentation [facility] [address] [place] [address] Floor 5 [place] [address] Sarah Brunner, MULTIPLE DRILL OPERATOR 09/17/2024 11:19 AM HOME HEALTH AIDE CAREGIVER - 09/17/2024 11:59 PM HOME HEALTH AIDE CAREGIVER Hospital Encounter [facility] Radiology [facility] [address] [place] [address] Discharge Disposition: Discharge to home or self care 09/17/2024 Social Work [facility] Floor [address] [place] [address] Sarah Brunner, LAURIE 09/17/2024 Documentation [facility] Outpatient Health - Palliative Care [address] [facility] [place] [address] Mary Ellen Mckeon MD 09/16/2024 Orders Only [facility] [address] [facility] Floor [address] [place] [phone] Sasha Hernandes RN Primary cancer of left lower lobe of lung (HCC) (Primary Dx) 09/11/2024 Telephone [facility] Outpatient Health - Palliative Care [address] [place] [address] Mariah Altamirano, ALYX from Last 3 Months Immunizations Name Administration Dates Next Due Influenza, Quadrivalent, Hig h Dose, Preservative Free, Intrr 08/23/2024 Influenza, Quadrivalent, Rec ombinant, Egg Free, Preservative Free, Intramuscular 07/29/2022,07/26/2021 Influenza, Quadrivalent, Spl it, Intramuscular 07/17/2017,09/29/2016 Influenza, Quadrivalent, Spl it, Preservative Free, Intramuscular 09/29/2023,08/04/2020,07/11/2019,08/09,11/02/2015 Influenza, Unspecified 08/13/2020 [employer] ([employer]) SARS-CoV-2 Vaccination 01/17/2021 Pneumococcal Conjugate Pcv20 [...] on file Legal Sex Male 6:04 PM HOME HEALTH AIDE CAREGIVER Gender Identity Not on file Sexual Orientation Not on file Obstetrics History Last Filed Vital Signs Vital Sign Reading Time Taken Comments Blood Pressure 205/132 12/12/2024 1:00 PM HOME HEALTH AIDE CAREGIVER Pulse 79 12/12/2024 1:00 PM HOME HEALTH AIDE CAREGIVER Temperature 36.7 C (98.1 F) 12/12/2024 8:02 AM HOME HEALTH AIDE CAREGIVER Respiratory Rate 20 12/12/2024 1:00 PM HOME HEALTH AIDE CAREGIVER Oxygen Saturation 100% 12/12/2024 1:00 PM HOME HEALTH AIDE CAREGIVER Inhaled Oxygen Concentration - - Weight 83.9 kg (185 lb) 12/12/2024 8:02 AM HOME HEALTH AIDE CAREGIVER Height 175.3 cm (5' 9 ) 12/12/2024 8:02 AM HOME HEALTH AIDE CAREGIVER Body Mass Index 27.32 12/12/2024 8:02 AM HOME HEALTH AIDE CAREGIVER Plan of Treatment Health Maintenance Due Date [...] WO CONTRAST ED 12/12/2024 1 1:00 AM HOME HEALTH AIDE CAREGIVER CT CHEST ABDOMEN PELVIS W CONTRAST ED 12/12/2024 11:00 AM HOME HEALTH AIDE CAREGIVER TROPONIN I HIGH-SENSITIVITY 2-HOUR Timed 12/12/2024 10:33 AM HOME HEALTH AIDE CAREGIVER XR CHEST PA LATERAL 2 VIEWS ED 12/12/2024 10:28 AM HOME HEALTH AIDE CAREGIVER PRO B-TYPE NATRIURETIC PEPTIDE STAT 12/12/2024 9:35 AM HOME HEALTH AIDE CAREGIVER INFLUENZA A/B, RSV, AND COVID-19 PCR STAT 12/12/2024 9:35 AM HOME HEALTH AIDE CAREGIVER EGFR STAT 12/12/2024 8:45 AM HOME HEALTH AIDE CAREGIVER DIFFERENTIAL AUTO STAT 12/12/2024 8:4 5 AM HOME HEALTH AIDE CAREGIVER TROPONIN I HIGH-SENSITIVITY SERIES (BASELINE, 2HR, 4HR, 6HR) STAT 12/12/2024 8:45 AM HOME HEALTH AIDE CAREGIVER CBC WITH AUTO DIFFERENTIAL STAT 12/12/2024 8:45 AM HOME HEALTH AIDE CAREGIVER COMPREHENSIVE METABOLIC PANEL STAT 12/12/2024 8:45 AM HOME HEALTH AIDE CAREGIVER ECG 12-LEAD STAT 12/12/2024 8:16 AM HOME HEALTH AIDE CAREGIVER T3, FREE Routine 12/05/2024 9:34 AM HOME HEALTH AIDE CAREGIVER EGFR STAT 12/05/2024 9:34 AM HOME HEALTH AIDE CAREGIVER Primary cancer of left lower lobe of lung (HCC) T4, FREE Routine 12/05/2024 9:34 AM HOME HEALTH AIDE CAREGIVER Primary cancer of left lower lobe of lung (HCC) Hypokalemia DIFFERENTIAL AUTO STAT 12/05/2024 9:3 4 AM HOME HEALTH AIDE CAREGIVER Primary cancer of left lower lobe of lung (HCC) CBC WITH AUTO DIFFERENTIAL STAT 12/05/2024 9:34 AM HOME HEALTH AIDE CAREGIVER Primary cancer of left lower lobe of lung (HCC) COMPREHENSIVE METABOLIC PANEL STAT 12/05/2024 9:34 AM HOME HEALTH AIDE CAREGIVER Primary cancer of left lower lobe of lung (HCC) THYROID FUNCTION CASCADE Routine 12/05/2024 9:34 AM HOME HEALTH AIDE CAREGIVER Primary cancer of left lower lobe of lung (HCC) Hypokalemia EGFR STAT 11/14/2024 8:52 AM HOME HEALTH AIDE CAREGIVER Primary cancer of left lower lobe of lung (HCC) COMPREHENSIVE METABOLIC PANEL STAT 11/14/2024 8:52 AM HOME HEALTH AIDE CAREGIVER Primary cancer of left lower lobe of lung (HCC) DIFFERENTIAL AUTO STAT 11/14/2024 8:3 8 AM HOME HEALTH AIDE CAREGIVER Primary cancer of left lower lobe of lung (HCC) CBC WITH AUTO DIFFERENTIAL STAT 11/14/2024 8:38 AM HOME HEALTH AIDE CAREGIVER Primary cancer of left lower lobe of lung (HCC) EGFR STAT 11/07/2024 8:14 AM HOME HEALTH AIDE CAREGIVER Primary cancer of left lower lobe of lung (HCC) DIFFERENTIAL AUTO STAT 11/07/2024 8:1 4 AM HOME HEALTH AIDE CAREGIVER Primary cancer of left lower lobe of lung (HCC) MAGNESIUM STAT 11/07/2024 8:14 AM HOME HEALTH AIDE CAREGIVER Primary cancer of left lower lobe of lung (HCC) Metastasis to bone (CMS/HCC) (HCC) PHOSPHORUS STAT 11/07/2024 8:14 AM HOME HEALTH AIDE CAREGIVER Primary cancer of left lower lobe of lung (HCC) Metastasis to bone (CMS/HCC) (HCC) VITAMIN D 25 HYDROXY Routine 11/07/2024 8:14 AM HOME HEALTH AIDE CAREGIVER Primary cancer of left lower lobe of lung (HCC) Metastasis to bone (CMS/HCC) (HCC) CBC WITH AUTO DIFFERENTIAL STAT 11/07/2024 8:14 AM HOME HEALTH AIDE CAREGIVER Primary cancer of left lower lobe of lung (HCC) COMPREHENSIVE METABOLIC PANEL STAT 11/07/2024 8:14 AM HOME HEALTH AIDE CAREGIVER Primary cancer of left lower lobe of lung (HCC) CT BODY OUTSIDE CONSULT Routine 10/25/2024 2:15 PM HOME HEALTH AIDE CAREGIVER Diagnosis unknown DIFFERENTIAL AUTO Routine 10/03/2024 7:3 4 AM HOME HEALTH AIDE CAREGIVER Primary cancer of left lower lobe of lung (HCC) CBC WITH AUTO DIFFERENTIAL Routine 10/03/2024 7:34 AM HOME HEALTH AIDE CAREGIVER Primary cancer of left lower lobe of lung (HCC) EGFR STAT 09/25/2024 7:43 AM HOME HEALTH AIDE CAREGIVER Primary cancer of left lower lobe of lung (HCC) DIFFERENTIAL AUTO STAT 09/25/2024 7:4 3 AM HOME HEALTH AIDE CAREGIVER Primary cancer of left lower lobe of lung (HCC) CBC WITH AUTO DIFFERENTIAL STAT 09/25/2024 7:43 AM HOME HEALTH AIDE CAREGIVER Primary cancer of left lower lobe of lung (HCC) COMPREHENSIVE METABOLIC PANEL STAT 09/25/2024 7:43 AM HOME HEALTH AIDE CAREGIVER Primary cancer of left lower lobe of lung (HCC) CT BODY OUTSIDE REFERENCE Routine 09/17/2024 11:19 AM HOME HEALTH AIDE CAREGIVER from Last 3 Months Results * CT Chest Abdomen Pelvis W Contrast (12/12/2024 11:00 AM HOME HEALTH AIDE CAREGIVER) Anatomical Region Laterality Modality Body N/A Computed Tomogra phy 12/12/2024 11:3 3 AM HOME HEALTH AIDE CAREGIVER Impressions 12/12/2024 11:33 AM HOME HEALTH AIDE CAREGIVER 1. Similar burden of osseous metastasis, treated bilateral adrenal metastasis, and slightly smaller measurement of left hilar tumor. No evidence of progression. 2. Similar degree of mild severity peripheral lung damage/organized pneumonia. Electronically signed by: El Bee M.D. Narrative 12/12/2024 11:33 AM HOME HEALTH AIDE CAREGIVER EXAMINATION: Computed tomography of the chest, abdomen [...] CT Head WO Contrast (12/12/2024 11:00 AM HOME HEALTH AIDE CAREGIVER) Anatomical Region Laterality Modality Head and Neck N/A Computed Tomogra phy 12/12/2024 11:0 7 AM HOME HEALTH AIDE CAREGIVER Impressions 12/12/2024 11:07 AM HOME HEALTH AIDE CAREGIVER 1. No acute intracranial hemorrhage, mass effect, or large new area of edema.. Note is made that a contrast-enhanced examination would be more sensitive for the detection of intracranial metastases. Electronically signed by: Luciano Napier M.D. Narrative 12/12/2024 11:07 AM HOME HEALTH AIDE CAREGIVER EXAMINATION: CT head without contrast HISTORY: Metastatic [...] Troponin I high-sensitivity 2-hour (12/12/2024 10:33 AM HOME HEALTH AIDE CAREGIVER) Trop I hs 6 <=35 ng/L Comment: Interpretive Data For further hscTnI resources including the diagnostic algorithm and an aid in interpretation, copy and paste this link: https://bjhlab.testcatalog.org/show/hsTrop-1 Current Interpretive Data last revised 2020. Trop I hs delta 1 ng/L [facility] Trop I hs interp Insignificant CERNER BJ Blood 12/12/2024 10:3 3 AM HOME HEALTH AIDE CAREGIVER 12/12/2024 10:45 AM HOME HEALTH AIDE CAREGIVER Natalie Guzman MD LAB BLOOD ORDERABLES Yolette l Result [facility] One [facility] [place] [address] * XR Chest PA Lateral 2 Views (12/12/2024 10:28 AM HOME HEALTH AIDE CAREGIVER) Anatomical Region Laterality Modality Body, Chest N/A Computed Radiogr aphy 12/12/2024 11:1 1 AM HOME HEALTH AIDE CAREGIVER Impressions 12/12/2024 11:11 AM HOME HEALTH AIDE CAREGIVER Comparison May 2024. Low lung volumes. Mild [...] El Bee M.D. Narrative 12/12/2024 11:11 AM HOME HEALTH AIDE CAREGIVER EXAMINATION: 2 view chest radiograph Procedure Note [...] and COVID-19 PCR Nasopharyngeal (12/12/2024 9:35 AM HOME HEALTH AIDE CAREGIVER) COVID-19 RNA Negative Negative [facility] Influenza A RNA Negative Negative [facility] [place] [place] Influenza B RNA Negative Negative [facility] RSV RNA Negative Negative [facility] Comment: Interpretive data: Testing performed by [facility] ([phone]). This test is performed using the [employer] Xpert Xpress CoV-2/Flu/RSV plus assay. This is a multiplex, real-time reverse transcriptase PCR assay intended for the qualitative detection of nucleic acid from SARS-CoV-2, influenza A, influenza B, and respiratory syncytial virus. This assay has been cleared by the [place] Food and Drug administration. The performance characteristics have been verified by the [facility]. Results must be considered in the clinical context, and a negative result does not rule out infection. Interpretive Data last revised 2023 Nasopharyngeal 12/12/2024 9: 35 AM HOME HEALTH AIDE CAREGIVER 12/12/2024 9:46 AM HOME HEALTH AIDE CAREGIVER N[facility]ative [facility] - 12/12/2024 10:27 AM HOME HEALTH AIDE CAREGIVER Is the Patient experiencing symptoms consistent with COVID?->No Anderson Bahena MD LAB MICROBIOLOGY - GENE RAL ORDERABLES Final Result [facility] One [facility] [place] [address] [facility] * (ABNORMAL) Pro B-type natriuretic peptide (12/12/2024 9:35 AM HOME HEALTH AIDE CAREGIVER) NT-proBNP 695(H) <=300 pg/mL Comment: Interpretive Comments: [...] Revised Date: 2018. Blood 12/12/2024 9:35 AM HOME HEALTH AIDE CAREGIVER 12/12/2024 9:48 AM HOME HEALTH AIDE CAREGIVER Anderson Bahena MD LAB BLOOD ORDERABLES Fi nal Result Performing Organization Address City/[facility]/ZIP Co de Phone Number [facility] Department [place] [address] * Troponin I high-sensitivity series (baseline, 2hr, 4hr, 6hr) (12/12/2024 8:45 AM HOME HEALTH AIDE CAREGIVER) Trop I hs 5 <=35 ng/L Comment: Interpretive Data For further hscTnI resources including the diagnostic algorithm and an aid in interpretation, copy and paste this link: https://bjhlab.testcatalog.org/show/hsTrop-1 Current Interpretive Data last revised 2020. Blood 12/12/2024 8:45 AM HOME HEALTH AIDE CAREGIVER 12/12/2024 8:55 AM HOME HEALTH AIDE CAREGIVER Julio Rodriguez MD LAB BLOOD ORDERABLES F inal Result Performing Organization Address City/[facility] Co de Phone Number [facility] [place] [address] * eGFR (12/12/2024 8:45 AM HOME HEALTH AIDE CAREGIVER) eGFR >90 >=60 mL/min/1. 73 m2 Comment: [...] last reviewed 2021. Blood 12/12/2024 8:45 AM HOME HEALTH AIDE CAREGIVER 12/12/2024 8:55 AM HOME HEALTH AIDE CAREGIVER us Julio Rodriguez MD LAB BLOOD ORDERABLES F inal Result [facility] One [facility] [place] [address] * (ABNORMAL) Differential, auto (12/12/2024 8:45 AM HOME HEALTH AIDE CAREGIVER) Neutrophil abs 3.7 1.5 - 6.5 K/cumm Imm gran abs 0.0 0.0 - 0.1 K/cumm [facility] Lymphocyte abs 0.7(L) 0.8 - 3.3 K/cumm [facility] Monocyte abs 0.4 0.2 - 0.8 K/cumm [facility] Eosinophil abs 0.3 0.0 - 0.5 K/cumm [facility] Basophil abs 0.0 0.0 - 0.1 K/cumm [facility] Neutrophil pct 72.0 % [facility] Comment: Interpretive Data Percent cell count reference ranges are not reported, since discordance with absolute values may lead to misinterpretation of CBC data. Current Interpretive Data was last revised on 2018. Imm gran pct 0.4 % [facility] Comment: Interpretive Data Percent cell count [...] revised on 2018. Basophil pct 0.6 % [facility] Comment: Interpretive Data Percent cell count reference ranges are not reported, since discordance with absolute values may lead to misinterpretation of CBC data. Current Interpretive Data was last revised on 2018. Blood 12/12/2024 8:45 AM HOME HEALTH AIDE CAREGIVER 12/12/2024 8:55 AM HOME HEALTH AIDE CAREGIVER Julio Rodriguez MD LAB BLOOD ORDERABLES F inal Result [facility] One [facility] [place] [address] * (ABNORMAL) CBC with auto differential (12/12/2024 8:45 AM HOME HEALTH AIDE CAREGIVER) WBC 5.1 3.8 - 9.9 K/cumm Hgb 10.3(L) 13.0 - 17.5 g/dL [facility] Hct 31.8(L) 38.9 - 50.3 % [facility] Plt 176 150 - 400 K/cumm [facility] MPV 8.9(L) 9.1 - 12.3 fL [facility] RBC 3.55(L) 4.30 - 5.80 M/cumm [facility] MCV 89.6 81.3 - 96.4 fL [facility] MCH 29.0 27.1 - 33.3 pg [facility] MCHC 32.4 32.3 - 35.7 g/dL [facility] RDW CV 19.2(H) 11.1 - 14.9 % [facility] RDW SD 63.2(H) 35.7 - 48.1 fL [facility] NRBC abs 0.00 0.00 - 0.01 K/cumm [facility] Blood 12/12/2024 8:45 AM HOME HEALTH AIDE CAREGIVER 12/12/2024 8:55 AM HOME HEALTH AIDE CAREGIVER us Julio Rodriguez MD LAB BLOOD ORDERABLES F inal Result [facility] One [facility] [place] [address] * (ABNORMAL) Comprehensive metabolic panel (12/12/2024 8:45 AM HOME HEALTH AIDE CAREGIVER) Sodium 133(L) 135 - 145 mmol/L Potassium, pl 4.0 3.3 - 4.9 mmol/L [facility] Chloride 97 97 - 110 mmol/L [facility] CO2 29 22 - 32 mmol/L [facility] Anion gap 7 2 - 15 mmol/L [facility] BUN 3(L) 6 - 25 mg/dL [facility] Creatinine 0.54(L) 0.80 - 1.30 mg/dL [facility] Glucose 101 70 - 199 mg/dL [facility] Comment: Interpretive Data Fasting glucose >/= [...] 2022. Calcium 9.4 8.5 - 10.3 mg/dL [facility] Bilirubin, total 0.4 0.1 - 1.2 mg/dL [facility] Protein, pl 6.6 6.5 - 8.5 g/dL [facility] Albumin 3.6 3.5 - 5.0 g/dL [facility] Alk phos 121 40 - 130 Units/L [facility] ALT 11 7 - 55 Units/L [facility] AST 19 10 - 50 Units/L [facility] Blood 12/12/2024 8:45 AM HOME HEALTH AIDE CAREGIVER 12/12/2024 8:55 AM HOME HEALTH AIDE CAREGIVER Julio Rodriguez MD LAB BLOOD ORDERABLES F inal Result [facility] [place] [address] * ECG 12-LEAD (12/12/2024 8:16 AM HOME HEALTH AIDE CAREGIVER) Narrative [facility] - 12/12/2024 8:16 AM HOME HEALTH AIDE CAREGIVER Julio Rodriguez MD 12/12/2024 8:16 AM ECG [...] up: further workup in the ED Julio Rodrigeuz MD 12/12/24 0816 us Julio Rodriguez MD ECG ORDERABLES Final Result [facility] * eGFR (12/05/2024 9:34 AM HOME HEALTH AIDE CAREGIVER) eGFR >90 >=60 mL/min/1. 73 m2 Comment: [...] last reviewed 2021. Blood 12/05/2024 9:34 AM HOME HEALTH AIDE CAREGIVER 12/05/2024 9:39 AM HOME HEALTH AIDE CAREGIVER us Stan Meza MD LAB BLOOD ORDERABLES Yolette banda Result [facility] One [facility] Department of Laboratories [place] [id number] * Differential, auto (12/05/2024 9:34 AM HOME HEALTH AIDE CAREGIVER) Neutrophil abs 2.5 1.5 - 6.5 K/cumm Comment:Testing performed by : [facility]e [facility], [address] [place] [phone] Lymphocyte abs 0.8 0.8 - 3.3 K/cumm [facility] Comment:Testing performed by : [facility], [address] [place] [phone] Monocyte abs 0.8 0.2 - 0.8 K/cumm [facility] Comment:Testing performed by : [facility], [address] [place] [phone] Eosinophil abs 0.2 0.0 - 0.5 K/cumm [facility] Comment:Testing performed by : [facility], [address] [place] [phone] Basophil abs 0.0 0.0 - 0.1 K/cumm [facility] Comment:Testing performed by : [facility], [address] [place] [phone] Neutrophil pct 58.7 % [facility] Comment: Interpretive Data Percent cell count reference ranges are not reported, since discordance with absolute values may lead to misinterpretation of CBC data. Current Interpretive Data was last revised on 2018. Testing performed by: [facility], [address] [place] [phone] Lymphocyte pct 17.5 % [facility] Comment: Interpretive Data Percent cell count reference ranges are not reported, since discordance with absolute values may lead to misinterpretation of CBC data. Current Interpretive Data was last revised on 2018. Testing performed by: [facility], [address] [place] [phone] Monocyte pct 19.3 % [facility] Comment: Interpretive Data Percent cell count reference ranges are not reported, since discordance with absolute values may lead to misinterpretation of CBC data. Current Interpretive Data was last revised on 2018. Testing performed by: [facility], [address] [place] [phone] Eosinophil pct 4.0 % [facility] Comment: Interpretive Data Percent cell count reference ranges are not reported, since discordance with absolute values may lead to misinterpretation of CBC data. Current Interpretive Data was last revised on 2018. Testing performed by: [facility], [address] [place] [phone] Basophil pct 0.5 % [facility] Comment: Interpretive Data Percent cell count reference ranges are not reported, since discordance with absolute values may lead to misinterpretation of CBC data. Current Interpretive Data was last revised on 2018. Testing performed by: [facility], [address] [place] [phone] Blood 12/05/2024 9:34 AM HOME HEALTH AIDE CAREGIVER 12/05/2024 9:39 AM HOME HEALTH AIDE CAREGIVER Stan Meza MD LAB BLOOD ORDERABLES Yolette l Result [facility] [place] [address] * (ABNORMAL) Thyroid Function [place] (12/05/2024 9:34 AM HOME HEALTH AIDE CAREGIVER) Pathologist [facility] TSH 0.24(L) 0.30 - 4.20 mcIUnit/mL Blood 12/05/2024 9:34 AM HOME HEALTH AIDE CAREGIVER 12/05/2024 9:39 AM HOME HEALTH AIDE CAREGIVER Stan Meza MD LAB BLOOD ORDERABLES Yolette l Result Performing Organization Address City/[facility] Co de Phone Number [facility] Department [place] [address] * (ABNORMAL) CBC with auto differential (12/05/2024 9:34 AM HOME HEALTH AIDE CAREGIVER) Pathologist [facility] WBC 4.3 3.8 - 9.9 K/cumm Comment:Testing performed by : [facility], [address] [place] [address] Hgb 10.0(L) 13.0 - 17.5 g/dL [facility] [place] [facility] Comment:Testing performed by : [facility], [address] [place] [address] Hct 31.1(L) 38.9 - 50.3 % [facility] [place] [facility] Comment:Testing performed by : [facility], [address] [place] [address] Plt 124(L) 150 - 400 K/cumm [facility] [place] [facility] Comment:Testing performed by : [facility], [address] [place] [address] MPV 7.4 6.8 - 10.4 fL [facility] Comment:Testing performed by : [facility], [address] [place] [address] RBC 3.43(L) 4.30 - 5.80 M/cumm [facility] Comment:Testing performed by : [facility], [address] [place] [address] MCV 90.7 81.3 - 96.4 fL [facility] Comment:Testing performed by : [facility], [address] [place], [place] [phone] MCH 29.1 27.1 - 33.3 pg [facility] Comment:Testing performed by : [facility], [address] [place], [place] [phone] MCHC 32.1(L) 32.3 - 35.7 g/dL [facility] Comment:Testing performed by : [facility], [address] [place], [place] [phone] RDW CV 18.8(H) 11.1 - 14.9 % [facility] Comment:Testing performed by : [facility], [address] [place], [place] [phone] NRBC abs 0.00 0.00 - 0.01 K/cumm [facility] Comment:Testing performed by : [facility], [address] [place], [place] [phone] Blood 12/05/2024 9:34 AM HOME HEALTH AIDE CAREGIVER 12/05/2024 9:39 AM HOME HEALTH AIDE CAREGIVER us Stan Meza MD LAB BLOOD ORDERABLES Yolette l Result [facility] [place] [address] * T3, free (12/05/2024 9:34 AM HOME HEALTH AIDE CAREGIVER) Free T3 2.7 2.0 - 4.4 pg/mL Blood 12/05/2024 9:34 AM HOME HEALTH AIDE CAREGIVER 12/05/2024 9:39 AM HOME HEALTH AIDE CAREGIVER Narrative [facility] - 12/05/2024 11:06 AM HOME HEALTH AIDE CAREGIVER This test was reflexed from a T4 result. Stan Meza MD LAB BLOOD ORDERABLES Yolette l Result Performing Organization Address [facility] Co de Phone Number [facility] [place] [employer] [place] [address] * T4, free (12/05/2024 9:34 AM HOME HEALTH AIDE CAREGIVER) Pathologist [facility] Free T4 1.26 0.90 - 1.70 ng/dL Blood 12/05/2024 9:34 AM HOME HEALTH AIDE CAREGIVER 12/05/2024 9:39 AM HOME HEALTH AIDE CAREGIVER Narrative [facility] - 12/05/2024 10:41 AM HOME HEALTH AIDE CAREGIVER This test was reflexed from a TSH result. Stan Meza MD LAB BLOOD ORDERABLES Yolette l Result Performing Organization Address [facility] de Phone Number [facility] [place] [address] * (ABNORMAL) Comprehensive metabolic panel (12/05/2024 9:34 AM HOME HEALTH AIDE CAREGIVER) [facility] Sodium 133(L) 135 - 145 mmol/L Potassium, pl 4.0 3.3 - 4.9 mmol/L [facility] Chloride 98 97 - 110 mmol/L [facility] CO2 28 22 - 32 mmol/L [facility] Anion gap 7 2 - 15 mmol/L [facility] BUN 5(L) 6 - 25 mg/dL [facility] Creatinine 0.65(L) 0.80 - 1.30 mg/dL [facility] Glucose 106 70 - 199 mg/dL [facility] Comment: Interpretive Data Fasting glucose >/= [...] Calcium 9.5 8.5 - 10.3 mg/dL [facility] Bilirubin, total 0.2 0.1 - 1.2 mg/dL [facility] Protein, pl 6.9 6.5 - 8.5 g/dL [facility] Albumin 3.8 3.5 - 5.0 g/dL [facility] Alk phos 127 40 - 130 Units/L [facility] ALT 7 7 - 55 Units/L [facility] AST 17 10 - 50 Units/L [facility] Blood 12/05/2024 9:34 AM HOME HEALTH AIDE CAREGIVER 12/05/2024 9:39 AM HOME HEALTH AIDE CAREGIVER us Stan Meza MD LAB BLOOD ORDERABLES Yolette l Result [facility] One [facility] [place] [address] * eGFR (11/14/2024 8:52 AM HOME HEALTH AIDE CAREGIVER) eGFR >90 >=60 mL/min/1. 73 m2 Comment: [...] last reviewed 2021. Blood 11/14/2024 8:52 AM HOME HEALTH AIDE CAREGIVER 11/14/2024 8:59 AM HOME HEALTH AIDE CAREGIVER us Stan Meza MD LAB BLOOD ORDERABLES Yolette banda Result [facility] One [facility] [place] [address] * (ABNORMAL) Comprehensive metabolic panel (11/14/2024 8:52 AM HOME HEALTH AIDE CAREGIVER) Sodium 139 135 - 145 mmol/L Potassium, pl 3.1(L) 3.3 - 4.9 mmol/L [facility] Chloride 101 97 - 110 mmol/L [facility] CO2 31 22 - 32 mmol/L [facility] Anion gap 7 2 - 15 mmol/L [facility] BUN 4(L) 6 - 25 mg/dL [facility] Creatinine 0.64(L) 0.80 - 1.30 mg/dL [facility] Glucose 113 70 - 199 mg/dL [facility] Comment: Interpretive Data Fasting glucose >/= [...] 2022. Calcium 9.0 8.5 - 10.3 mg/dL [facility] Bilirubin, total 0.3 0.1 - 1.2 mg/dL [facility] Protein, pl 6.9 6.5 - 8.5 g/dL [facility] Albumin 3.9 3.5 - 5.0 g/dL [facility] Alk phos 128 40 - 130 Units/L [facility] ALT 9 7 - 55 Units/L [facility] AST 16 10 - 50 Units/L [facility] Blood 11/14/2024 8:52 AM HOME HEALTH AIDE CAREGIVER 11/14/2024 8:59 AM HOME HEALTH AIDE CAREGIVER us Stan Meza MD LAB BLOOD ORDERABLES Yolette banda Result [facility] One [facility] [place] [address] * (ABNORMAL) Differential, auto (11/14/2024 8:38 AM HOME HEALTH AIDE CAREGIVER) Neutrophil abs 2.4 1.5 - 6.5 K/cumm Imm gran abs 0.0 0.0 - 0.1 K/cumm [facility] Lymphocyte abs 0.6(L) 0.8 - 3.3 K/cumm [facility] Monocyte abs 0.2 0.2 - 0.8 K/cumm [facility] Eosinophil abs 0.1 0.0 - 0.5 K/cumm [facility] Basophil abs 0.1 0.0 - 0.1 K/cumm [facility] Neutrophil pct 70.0 % [facility] Comment: Interpretive Data Percent cell count reference ranges are not reported, since discordance with absolute values may lead to misinterpretation of CBC data. Current Interpretive Data was last revised on 2018. Imm gran pct 0.9 % [facility] Comment: Interpretive Data Percent cell count reference ranges are not reported, since discordance with absolute values may lead to misinterpretation of CBC data. Current Interpretive Data was last revised on 2018. Lymphocyte pct 18.5 % [facility] Comment: Interpretive Data Percent cell count reference ranges are not reported, since discordance with absolute values may lead to misinterpretation of CBC data. Current Interpretive Data was last revised on 2018. Monocyte pct 5.6 % [facility] [place] [facility] Comment: Interpretive Data Percent cell count reference ranges are not reported, since discordance with absolute values may lead to misinterpretation of CBC data. Current Interpretive Data was last revised on 2018. Eosinophil pct 3.5 % [facility] Comment: Interpretive Data Percent cell count reference ranges are not reported, since discordance with absolute values may lead to misinterpretation of CBC data. Current Interpretive Data was last revised on 2018. Basophil pct 1.5 % [facility] [place] Comment: Interpretive Data Percent cell count reference ranges are not reported, since discordance with absolute values may lead to misinterpretation of CBC data. Current Interpretive Data was last revised on 2018. Blood 11/14/2024 8:38 AM HOME HEALTH AIDE CAREGIVER 11/14/2024 8:59 AM HOME HEALTH AIDE CAREGIVER Stan Meza MD LAB BLOOD ORDERABLES Yolette l Result Performing Organization Address [facility] Co de Phone Number [facility] [place] [address] * (ABNORMAL) CBC with auto differential (11/14/2024 8:38 AM HOME HEALTH AIDE CAREGIVER) WBC 3.4(L) 3.8 - 9.9 K/cumm Hgb 9.3(L) 13.0 - 17.5 g/dL [facility] Hct 28.9(L) 38.9 - 50.3 % [facility] Plt 196 150 - 400 K/cumm [facility] MPV 10.5 9.1 - 12.3 fL [facility] RBC 3.34(L) 4.30 - 5.80 M/cumm [facility] MCV 86.5 81.3 - 96.4 fL [facility] MCH 27.8 27.1 - 33.3 pg [facility] MCHC 32.2(L) 32.3 - 35.7 g/dL [facility] RDW CV 18.5(H) 11.1 - 14.9 % [facility] RDW SD 59.2(H) 35.7 - 48.1 fL [facility] NRBC abs 0.00 0.00 - 0.01 K/cumm [facility] Blood 11/14/2024 8:38 AM HOME HEALTH AIDE CAREGIVER 11/14/2024 8:59 AM HOME HEALTH AIDE CAREGIVER Stan Meza MD LAB BLOOD ORDERABLES Yolette l Result Performing Organization Address [facility]/ZIP Co de Phone Number [facility] [place] [employer] [place] [address] * eGFR (11/07/2024 8:14 AM HOME HEALTH AIDE CAREGIVER) [facility] eGFR >90 >=60 mL/min/1. 73 m2 Comment: [...] last reviewed 2021. Blood 11/07/2024 8:14 AM HOME HEALTH AIDE CAREGIVER 11/07/2024 8:18 AM HOME HEALTH AIDE CAREGIVER us Stan Meza MD LAB BLOOD ORDERABLES Yolette banda Result [facility] One [facility] [place] [address] * Differential, auto (11/07/2024 8:14 AM HOME HEALTH AIDE CAREGIVER) [facility] Neutrophil abs 3.0 1.5 - 6.5 K/cumm Comment:Testing performed by : [facility], [address] [place] [phone] Lymphocyte abs 0.8 0.8 - 3.3 K/cumm [facility] [place] [facility] Comment:Testing performed by : [facility], [address] [place] [phone] Monocyte abs 0.7 0.2 - 0.8 K/cumm [facility] Comment:Testing performed by : [facility], [address] [place] [phone] Eosinophil abs 0.3 0.0 - 0.5 K/cumm [facility] Comment:Testing performed by : [facility], [address] [place] [phone] Basophil abs 0.1 0.0 - 0.1 K/cumm [facility] Comment:Testing performed by : [facility], [address] [place] [phone] Neutrophil pct 60.9 % [facility] Comment: Interpretive Data Percent cell count reference ranges are not reported, since discordance with absolute values may lead to misinterpretation of CBC data. Current Interpretive Data was last revised on 2018. Testing performed by: [facility], [address] [place] [phone] Lymphocyte pct 17.4 % [facility] Comment: Interpretive Data Percent cell count reference ranges are not reported, since discordance with absolute values may lead to misinterpretation of CBC data. Current Interpretive Data was last revised on 2018. Testing performed by: [facility], [address] [place] [phone] Monocyte pct 14.4 % [facility] Comment: Interpretive Data Percent cell count reference ranges are not reported, since discordance with absolute values may lead to misinterpretation of CBC data. Current Interpretive Data was last revised on 2018. Testing performed by: [facility], [address] [place] [phone] Eosinophil pct 6.2 % [facility] Comment: Interpretive Data Percent cell count reference ranges are not reported, since discordance with absolute values may lead to misinterpretation of CBC data. Current Interpretive Data was last revised on 2018. Testing performed by: [facility], [address] [place] [phone] Basophil pct 1.1 % [facility] Comment: Interpretive Data Percent cell count reference ranges are not reported, since discordance with absolute values may lead to misinterpretation of CBC data. Current Interpretive Data was last revised on 2018. Testing performed by: [facility], [address] [place] [address] Blood 11/07/2024 8:14 AM HOME HEALTH AIDE CAREGIVER 11/07/2024 8:16 AM HOME HEALTH AIDE CAREGIVER us Stan Meza MD LAB BLOOD ORDERABLES Yolette veronika Result [facility] [place] [address] * (ABNORMAL) CBC with auto differential (11/07/2024 8:14 AM HOME HEALTH AIDE CAREGIVER) WBC 4.9 3.8 - 9.9 K/cumm Comment:Testing performed by : [facility], [address] [place] [address] Hgb 9.8(L) 13.0 - 17.5 g/dL [facility] Comment:Testing performed by : [facility], [address] [place] [address] Hct 30.1(L) 38.9 - 50.3 % [facility] Comment:Testing performed by : [facility], [address] [place] [address] Plt 232 150 - 400 K/cumm [facility] Comment:Testing performed by : [facility], [address] [place] [address] MPV 6.8 6.8 - 10.4 fL [facility] Comment:Testing performed by : [facility], [address] [place] [address] RBC 3.47(L) 4.30 - 5.80 M/cumm [facility] Comment:Testing performed by : [facility], [address] [place] [address] MCV 86.6 81.3 - 96.4 fL [facility] Comment:Testing performed by : [facility], [address] [place] [address] MCH 28.3 27.1 - 33.3 pg [facility] Comment:Testing performed by : [facility], [address] [place] [phone] MCHC 32.6 32.3 - 35.7 g/dL [facility] [place] Comment:Testing performed by : [facility], [address] [place], [place] [phone] RDW CV 21.1(H) 11.1 - 14.9 % [facility] Comment:Testing performed by : [facility], [address] [place] [phone] NRBC abs 0.00 0.00 - 0.01 K/cumm [facility] [place] [facility] Comment:Testing performed by : [facility], [address] [place] [phone] Blood 11/07/2024 8:14 AM HOME HEALTH AIDE CAREGIVER 11/07/2024 8:16 AM HOME HEALTH AIDE CAREGIVER Stan Meza MD LAB BLOOD ORDERABLES Yolette l Result Performing Organization Address City/[facility]/ZIP Co de Phone Number [facility] [place] [address] * (ABNORMAL) Vitamin D 25 hydroxy (11/07/2024 8:14 AM HOME HEALTH AIDE CAREGIVER) Pathologist [facility] Vitamin D 25-OH 23(L) 30 - 80 ng/mL Blood 11/07/2024 8:14 AM HOME HEALTH AIDE CAREGIVER 11/07/2024 8:18 AM HOME HEALTH AIDE CAREGIVER Stan Meza MD LAB BLOOD ORDERABLES Yolette l Result [facility] [place] [address] * Phosphorus (11/07/2024 8:14 AM HOME HEALTH AIDE CAREGIVER) Pathologist [facility] Phosphorus, pl 3.4 2.3 - 4.5 mg/dL Blood 11/07/2024 8:14 AM HOME HEALTH AIDE CAREGIVER 11/07/2024 8:18 AM HOME HEALTH AIDE CAREGIVER Stan Meza MD LAB BLOOD ORDERABLES Yolette l Result Performing Organization Address City/[facility]/ZIP Co de Phone Number [facility] [place] [address] * Magnesium (11/07/2024 8:14 AM HOME HEALTH AIDE CAREGIVER) Pathologist [facility] Magnesium 1.7 1.4 - 2.5 mg/dL Blood 11/07/2024 8:14 AM HOME HEALTH AIDE CAREGIVER 11/07/2024 8:18 AM HOME HEALTH AIDE CAREGIVER Stan Meza MD LAB BLOOD ORDERABLES Yolette l Result Performing Organization Address [facility] de Phone Number [facility] [place] [address] * (ABNORMAL) Comprehensive metabolic panel (11/07/2024 8:14 AM HOME HEALTH AIDE CAREGIVER) [facility] Sodium 138 135 - 145 mmol/L Potassium, pl 3.5 3.3 - 4.9 mmol/L [facility] Chloride 101 97 - 110 mmol/L [facility] CO2 28 22 - 32 mmol/L [facility] Anion gap 9 2 - 15 mmol/L [facility] BUN 4(L) 6 - 25 mg/dL [facility] Creatinine 0.66(L) 0.80 - 1.30 mg/dL [facility] Glucose 97 70 - 199 mg/dL [facility] Comment: Interpretive Data Fasting glucose >/= [...] Units/L [facility] Blood 11/07/2024 8:14 AM HOME HEALTH AIDE CAREGIVER 11/07/2024 8:18 AM HOME HEALTH AIDE CAREGIVER us Stan Meza MD LAB BLOOD ORDERABLES Yolette banda Result [facility] One [facility] [place] [address] * CT Body Outside Consult (10/25/2024 2:15 PM HOME HEALTH AIDE CAREGIVER) Anatomical Region Laterality Modality Body N/A Computed Tomogra phy 10/27/2024 7:03 PM HOME HEALTH AIDE CAREGIVER Impressions 10/27/2024 7:03 PM HOME HEALTH AIDE CAREGIVER 1. Marked response to therapy in the [...] images may or may not represent the [place] source data set and thus may contain changes that may lower the accuracy of this second-opinion interpretation. Electronically signed by: Wally Garg M.D. Narrative 10/27/2024 7:03 PM HOME HEALTH AIDE CAREGIVER EXAMINATION: RADIOLOGY CONSULTATION ON OUTSIDE IMAGING STUDY STUDY INITIALLY PERFORMED: 10/23/2024 at [facility]. TYPE OF STUDY: Multiple CT images of [...] IMAGING STUDY STUDY INITIALLY PERFORMED: 10/23/2024 at [facility]. TYPE OF STUDY: Multiple CT images of [...] images may or may not represent the [place] source data set and thus may contain changes that may lower the accuracy of this second-opinion interpretation. Electronically signed by: Wally Garg M.D. us Stan Meza MD IMG CT PROCEDURES Final R esult * Differential, auto (10/03/2024 7:34 AM HOME HEALTH AIDE CAREGIVER) Neutrophil abs 2.5 1.5 - 6.5 K/cumm Comment:Testing performed by : [facility], [address] [place] [address] Lymphocyte abs 0.8 0.8 - 3.3 K/cumm [facility] Comment:Testing performed by : [facility], [address] [place], [place] [phone] Monocyte abs 0.4 0.2 - 0.8 K/cumm C[facility]ER [facility] Comment:Testing performed by : [facility], [address] [place], [place] [phone] Eosinophil abs 0.1 0.0 - 0.5 K/cumm C[facility]ER [facility] Comment:Testing performed by : [facility], [address] [place] [address] Basophil abs 0.0 0.0 - 0.1 K/cumm [facility] Comment:Testing performed by : [facility], [address] [place] [phone] Neutrophil pct 65.4 % [facility] Comment: Interpretive Data Percent cell count reference ranges are not reported, since discordance with absolute values may lead to misinterpretation of CBC data. Current Interpretive Data was last revised on 2018. Testing performed by: [facility], [address] [place] [phone] Lymphocyte pct 21.8 % [facility] Comment: Interpretive Data Percent cell count reference ranges are not reported, since discordance with absolute values may lead to misinterpretation of CBC data. Current Interpretive Data was last revised on 2018. Testing performed by: [facility], [address] [place] [phone] Monocyte pct 10.8 % [facility] Comment: Interpretive Data Percent cell count reference ranges are not reported, since discordance with absolute values may lead to misinterpretation of CBC data. Current Interpretive Data was last revised on 2018. Testing performed by: [facility], [address] [place] [phone] Eosinophil pct 1.8 % [facility] Comment: Interpretive Data Percent cell count reference ranges are not reported, since discordance with absolute values may lead to misinterpretation of CBC data. Current Interpretive Data was last revised on 2018. Testing performed by: [facility], [address] [place] [phone] Basophil pct 0.2 % [facility] Comment: Interpretive Data Percent cell count reference ranges are not reported, since discordance with absolute values may lead to misinterpretation of CBC data. Current Interpretive Data was last revised on 2018. Testing performed by: [facility], [address] [place] [phone] Blood 10/03/2024 7:34 AM HOME HEALTH AIDE CAREGIVER 10/03/2024 7:37 AM HOME HEALTH AIDE CAREGIVER us Stan Meza MD LAB BLOOD ORDERABLES Yolette banda Result [facility] [place] [address] * (ABNORMAL) CBC with auto differential (10/03/2024 7:34 AM HOME HEALTH AIDE CAREGIVER) WBC 3.8 3.8 - 9.9 K/cumm Comment:Testing performed by : [facility], [address] [place] [address] Hgb 9.0(L) 13.0 - 17.5 g/dL [facility] Comment:Testing performed by : [facility], [address] [place] [address] Hct 27.9(L) 38.9 - 50.3 % [facility] Comment:Testing performed by : [facility], [address] [place] [address] Plt 252 150 - 400 K/cumm [facility] Comment:Testing performed by : [facility], [address] [place] [address] MPV 6.8 6.8 - 10.4 fL [facility] Comment:Testing performed by : [facility], [address] [place] [address] RBC 3.40(L) 4.30 - 5.80 M/cumm [facility] Comment:Testing performed by : [facility], [address] [place] [address] MCV 82.0 81.3 - 96.4 fL [facility] Comment:Testing performed by : [facility], [address] [place] [address] MCH 26.6(L) 27.1 - 33.3 pg [facility] Comment:Testing performed by : [facility], [address] [place] [address] MCHC 32.4 32.3 - 35.7 g/dL [facility] Comment:Testing performed by : [facility], [address] [place] [address] RDW CV 17.7(H) 11.1 - 14.9 % [facility] Comment:Testing performed by : [facility], [address] [place] [phone] NRBC abs 0.00 0.00 - 0.01 K/cumm [facility] Comment:Testing performed by : [facility], [address] [place] [phone] Blood 10/03/2024 7:34 AM HOME HEALTH AIDE CAREGIVER 10/03/2024 7:37 AM HOME HEALTH AIDE CAREGIVER us Stan Meza MD LAB BLOOD ORDERABLES Yolette veronika Result [facility] One [facility] [place] [address] * eGFR (09/25/2024 7:43 AM HOME HEALTH AIDE CAREGIVER) eGFR >90 >=60 mL/min/1. 73 m2 Comment: [...] last reviewed 2021. Blood 09/25/2024 7:43 AM HOME HEALTH AIDE CAREGIVER 09/25/2024 7:51 AM HOME HEALTH AIDE CAREGIVER us Stan Meza MD LAB BLOOD ORDERABLES Yolette veronika Result [facility] [place] [address] * (ABNORMAL) Differential, auto (09/25/2024 7:43 AM HOME HEALTH AIDE CAREGIVER) Neutrophil abs 4.1 1.5 - 6.5 K/cumm Comment:Testing performed by : [facility], [address] [place] [phone] Lymphocyte abs 0.8 0.8 - 3.3 K/cumm [facility] Comment:Testing performed by : [facility], [address] [place] [phone] Monocyte abs 0.9(H) 0.2 - 0.8 K/cumm [facility] Comment:Testing performed by : [facility], [address] [place] [phone] Eosinophil abs 0.1 0.0 - 0.5 K/cumm [facility] Comment:Testing performed by : [facility], [address] [place] [phone] Basophil abs 0.1 0.0 - 0.1 K/cumm [facility] Comment:Testing performed by : [facility], [address] [place] [phone] Neutrophil pct 69.0 % [facility] Comment: Interpretive Data Percent cell count reference ranges are not reported, since discordance with absolute values may lead to misinterpretation of CBC data. Current Interpretive Data was last revised on 2018. Testing performed by: [facility], [address] [place] [phone] Lymphocyte pct 13.4 % [facility] Comment: Interpretive Data Percent cell count reference ranges are not reported, since discordance with absolute values may lead to misinterpretation of CBC data. Current Interpretive Data was last revised on 2018. Testing performed by: [facility], [address] [place] [phone] Monocyte pct 15.3 % [facility] Comment: Interpretive Data Percent cell count reference ranges are not reported, since discordance with absolute values may lead to misinterpretation of CBC data. Current Interpretive Data was last revised on 2018. Testing performed by: [facility], [address] [place] [phone] Eosinophil pct 1.3 % [facility] [place] Comment: Interpretive Data Percent cell count reference ranges are not reported, since discordance with absolute values may lead to misinterpretation of CBC data. Current Interpretive Data was last revised on 2018. Testing performed by: [facility], [address] [place] [phone] Basophil pct 1.0 % [facility] Comment: Interpretive Data Percent cell count reference ranges are not reported, since discordance with absolute values may lead to misinterpretation of CBC data. Current Interpretive Data was last revised on 2018. Testing performed by: [facility], [address] [place] [phone] Blood 09/25/2024 7:43 AM HOME HEALTH AIDE CAREGIVER 09/25/2024 7:48 AM HOME HEALTH AIDE CAREGIVER us Stan Meza MD LAB BLOOD ORDERABLES Yolette banda Result [facility] [place] [address] * (ABNORMAL) CBC with auto differential (09/25/2024 7:43 AM HOME HEALTH AIDE CAREGIVER) WBC 5.9 3.8 - 9.9 K/cumm Comment:Testing performed by : [facility], [address] [place] [phone] Hgb 9.7(L) 13.0 - 17.5 g/dL [facility] [place] Comment:Testing performed by : [facility], [address] [place] [phone] Hct 30.5(L) 38.9 - 50.3 % [facility] [place] Comment:Testing performed by : [facility], [address] [place] [address] Plt 350 150 - 400 K/cumm [facility] Comment:Testing performed by : [facility], [address] [place] [address] MPV 6.5(L) 6.8 - 10.4 fL [facility] Comment:Testing performed by : [facility], [address] [place] [address] RBC 3.72(L) 4.30 - 5.80 M/cumm [facility] Comment:Testing performed by : [facility], [address] [place] [address] MCV 82.1 81.3 - 96.4 fL [facility] Comment:Testing performed by : [facility], [address] [place] [address] MCH 26.1(L) 27.1 - 33.3 pg [facility] Comment:Testing performed by : [facility], [address] [place] [address] MCHC 31.8(L) 32.3 - 35.7 g/dL [facility] Comment:Testing performed by : [facility], [address] [place] [address] RDW CV 17.1(H) 11.1 - 14.9 % [facility] Comment:Testing performed by : [facility], [address] [place] [address] NRBC abs 0.00 0.00 - 0.01 K/cumm [facility] Comment:Testing performed by : [facility], [address] [place] [address] Blood 09/25/2024 7:4 3 AM HOME HEALTH AIDE CAREGIVER 09/25/2024 7:48 AM HOME HEALTH AIDE CAREGIVER us Stan Meza MD LAB BLOOD ORDERABLES Yolette banda Result [facility] One [facility] [place] [address] * (ABNORMAL) Comprehensive metabolic panel (09/25/2024 7:43 AM HOME HEALTH AIDE CAREGIVER) Sodium 135 135 - 145 mmol/L Potassium, pl 4.2 3.3 - 4.9 mmol/L [facility] Chloride 98 97 - 110 mmol/L [facility] CO2 30 22 - 32 mmol/L [facility] Anion gap 7 2 - 15 mmol/L [facility] BUN 5(L) 6 - 25 mg/dL [facility] Creatinine 0.73(L) 0.80 - 1.30 mg/dL [facility] Glucose 99 70 - 199 mg/dL [facility] Comment: Interpretive Data Fasting glucose >/= [...] 2022. Calcium 9.3 8.5 - 10.3 mg/dL [facility] [place] Bilirubin, total 0.2 0.1 - 1.2 mg/dL [facility] Protein, pl 6.6 6.5 - 8.5 g/dL [facility] Albumin 3.3(L) 3.5 - 5.0 g/dL [facility] Alk phos 172(H) 40 - 130 Units/L [facility] ALT 18 7 - 55 Units/L [facility] AST 17 10 - 50 Units/L [facility] Blood 09/25/2024 7:43 AM HOME HEALTH AIDE CAREGIVER 09/25/2024 7:51 AM HOME HEALTH AIDE CAREGIVER us Stan Meza MD LAB BLOOD ORDERABLES Yolette banda Result [facility] One [facility] [place] [address] * CT Body Outside Reference (09/17/2024 11:19 AM HOME HEALTH AIDE CAREGIVER) Impressions [facility] - 09/17/2024 11:19 AM HOME HEALTH AIDE CAREGIVER These images are for Reference purposes only and have not been reviewed by [facility]. There will be no report generated by a [facility] Radiologist. Narrative [facility] - 09/17/2024 11:19 AM HOME HEALTH AIDE CAREGIVER EXAMINATION: Images For Reference Purposes Only us Stan Meza MD IMG CT PROCEDURES Final R esult [facility] from Last 3 Months Insurance [facility] Care Teams Shank Cutter Relationship Specialty Start Date End Date Matthew Mccabe MD [address] [place] [address] PCP - General Family Medicine 05/13/24 Stan Meza MD [address] [facility] IM MEDICAL ONCOLOGY, [address] [place] [address] Medical Oncologist/Bias Cutter Helper Medical Oncology 06/28/24
--- OUTSIDE RECORDS SUMMARY | 2024-12-12 23:44 | XMS_ITS | Encounter Summary ---
Author Organization [facility] Address [address] [place] [address] Care Team Providers Care Air Press Operator Name Role Phone Ian Pollock MD Primary Care Provider [phone] Katina Casiano DO Unavailable [phone] Xavi ACOSTA MD, Jameel Gaviria Primary Care Provider + Katina Casiano DO Unavailable [phone] Tracey Ang PA Unavailable [phone] Belkis Angel MED SPA MANAGER-PEOPLESOFT Primary Care Provider + Natalie Baum Primary Care Provider [phone] Encounter Details Date Type Department Care Team (Late st Contact Info) Description 02/18/2022 Telephone [facility] Pul[facility], Critical Care and Sleep Medicine [address] [place] [id number] Agnieszka Haas MD [address] [place] [address] Social History Tobacco Use Types Packs/Day Years [...] review with him. Patient Call Back number: [phone] documented in this encounter Plan of Treatment [...] on filedocumented in this encounter Care Teams Air Press Operator Relationship Specialty Start Date End Date Ian Pollock MD [address] OF [facility] [place] [address] PCP - General 08/21/20 05/29/23 Jameel Hurley III, MD [address] OF [facility] [place] [place] [address] PCP - General Internal Medicine 06/05/23 08/28/23 Belkis Angel, MED SPA MANAGER-PEOPLESOFT [address] [facility] 2nd [place] [address] PCP - General Nurse Practitioner 08/29/23 05/05/24 Natalie Baum [address] [place] [address] PCP - General 05/06/24 Katina Casiano DO [address] [facility] [address] DIV OF GEN INTERNAL MEDICINE [place] Resident - PCP Internal Medicine 08/10/22 05/29/23 Katina Casiano DO [address] [facility] [address] DIV OF GEN [place] Hospitalist 06/05/23 Tracey Ang PA [address] [facility] [address] [place] [address] Physician Plastic Design Applier 08/15/23 documented as of this encounter
--- OUTSIDE RECORDS SUMMARY | 2024-12-12 23:44 | XMS_ITS | Encounter Summary ---
Author Organization [facility] Address [address] [place] [place] [address] Care Team Providers Care Pedigree Researcher Name Role Phone Monica Tellez RAILWAY SHUNTER-MANAGER STATISTICS Primary Care Provi cristobal Ian Pollock MD Primary Care Provider [phone] Ian Pollock MD Primary Care Provider [phone] Ian Pollock MD Primary Care Provider [phone] Ian Pollock MD Primary Care Provider [phone] Ian Pollock MD Primary Care Provider [phone] Katina Casiano DO Unavailable [phone] Xavi ACOSTA MD, Fred R Primary Care Provider + Katina Casiano DO Unavailable [phone] Tracey Ang PA Unavailable [phone] Belkis Angel RAILWAY SHUNTER-MANAGER STATISTICS Primary Care Provider + Natalie Baum Primary Care Provider [phone] Reason for Visit * Reason Onset Date Comments Appointment 09/11/2019 Encounter Details Date Type Department Care Team (Late st Contact Info) Description 09/11/2019 Telephone [facility] General Internal Medicine [address] [address] Monica Tellez RAILWAY SHUNTER-MANAGER STATISTICS [address] [place] [address] Appointment Social History Tobacco Use Types Packs/Day [...] disconnected Called again warm transfer to scheduling INATION TESTING MANAGER documented in this encounter Plan of [...] on filedocumented in this encounter Care Teams Pedigree Researcher Relationship Specialty Start Date End Date Monica Tellez, RAILWAY SHUNTER-MANAGER STATISTICS PCP - General 07/03/19 11/13/19 Ian Pollock MD PCP - General 11/14/19 12/12/19 Ian Pollock MD PCP - General 12/13/19 05/25/20 Ian Pollock MD PCP - General 05/26/20 06/15/20 Ian Pollock MD [address] [place] [address] PCP - General 07/31/20 08/20/20 Ian Pollock MD [address] [place] [address] PCP - General 08/21/20 05/29/23 Jameel Hurley III, MD [address] OF [facility] [place] [address] PCP - General Internal Medicine 06/05/23 08/28/23 Belkis Angel, RAILWAY SHUNTER-MANAGER STATISTICS [address] [address] PCP - General Nurse Practitioner 08/29/23 05/05/24 Natalie Baum [address] [place] [address] PCP - General 05/06/24 Katina Casiano DO [address] [facility] [address] DIV OF GEN INTERNAL MEDICINE [place], [place] Resident - PCP Internal Medicine 08/10/22 05/29/23 Katina Casiano DO [address] [facility] [address] DIV OF [facility] INTERNAL MEDICINE [place], [place] Hospitalist 06/05/23 Tracey Ang PA [address] [place] [address] Physician Stationary Fireman 08/15/23 documented as of this encounter
--- OUTSIDE RECORDS SUMMARY | 2024-12-12 23:44 | XMS_ITS | Encounter Summary ---
Author Organization [facility] Address [address] [facility] [place] [address] Care Team Providers Care Lift Builder Whole Name Role Phone Ian Pollock MD Primary Care Provider [phone] Ian Pollock MD Primary Care Provider [phone] Ian Pollock MD Primary Care Provider [phone] Ian Pollock MD Primary Care Provider [phone] Ian Pollock MD Primary Care Provider [phone] Katina Casiano DO Unavailable [phone] Xavi ACOSTA MD, Jameel R Primary Care Provider + Katina Casiano DO Unavailable [phone] Tracey Ang PA Unavailable [phone] Belkis Angel TRACK SERVICE WORKER-COMMUNITY EDUCATOR Primary Care Provider + Natalie Baum Primary Care Provider [phone] Reason for Visit * Reason Onset Date Comments General 12/02/2019 Encounter Details Date Type Department Care Team (Late st Contact Info) Description 12/02/2019 Telephone [facility] General Internal Medicine [address] [place] [address] Ian Pollock MD [address] DIV OF [place] [address] General Social History Tobacco Use Types Packs/Day [...] vulgar language and then abruptlydisconnect line. CB# [phone] Routed to provider for further review LE POINTED OPERATOR documented in this encounter Plan of [...] on filedocumented in this encounter Care Teams Lift Builder Whole Relationship Specialty Start Date End Date Ian Pollock MD PCP - General 11/14/19 12/12/19 Ian Pollock MD PCP - General 12/13/19 05/25/20 Ian Pollock MD PCP - General 05/26/20 06/15/20 Ian Pollock MD [address] OF [facility] [place] [address] PCP - General 07/31/20 08/20/20 Ian Pollock MD [address] OF [facility] [place] [address] PCP - General 08/21/20 05/29/23 Jameel Hurley III, MD [address] [facility] [place] [address] PCP - General Internal Medicine 06/05/23 08/28/23 Belkis Angel, TRACK SERVICE WORKER-COMMUNITY EDUCATOR [address] [address] PCP - General Nurse Practitioner 08/29/23 05/05/24 Natalie Baum [address] [place] [address] PCP - General 05/06/24 Katina Casiano DO [address] [facility] [address] DIV OF [facility] INTERNAL MEDICINE [place] Resident - PCP Internal Medicine 08/10/22 05/29/23 Katina Casiano DO [address] [facility] [address] [facility] OF [facility] INTERNAL MEDICINE [place], [place] Hospitalist 06/05/23 Tracey Ang PA [address] [facility] [address] [place] [address] Physician Band Saw Marker 08/15/23 documented as of this encounter
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
--- OUTSIDE RECORDS SUMMARY | 2024-12-12 23:44 | XMS_ITS | Referral Summary ---
Author Organization [facility] Address [address] [place] [address] Care Team Providers Care Dewaterer Operator Name Role Phone Matthew Mccabe MD Primary Care Prov ider Stan Meza MD Unavailable [phone] Encounters Date Type Department Care Team Description 12/12/2024 Orders Only [facility] [address] [place] [address] [phone] Sasha Hernandes RN Hypokalemia (Primary Dx); Primary cancer of left lower lobe of lung (HCC) 12/12/2024 8:08 AM BOOTH OPERATOR - 12/12/2024 1:30 PM [facility] Emergency [facility] Emergency Department [address] [place] [address] Julio Rodriguez MD Shortness of breath (Primary Dx); History of lung cancer; Pneumonia due to infectious organism, unspecified laterality, unspecified part of lung Discharge Disposition: Discharge to home or self care 12/10/2024 Orders Only [facility] [address] [place] [address] [phone] Sasha Hernandes RN Primary cancer of left lower lobe of lung (HCC) (Primary Dx); Metastasis to bone (CMS/HCC) (HCC) 12/09/2024 Documentation [facility] [address] [place] [phone] Sarah Brunner, TRACTOR ENGINE MECHANIC 12/05/2024 Social Work [facility] [address] [place] [address] Floor 5 [place] [address] Sarah Brunner, TRACTOR ENGINE MECHANIC 12/05/2024 Telephone [facility] Nutrition Counseling 1 [place] [address] Dagmar Pickard, LARRY 12/05/2024 8:30 AM BOOTH OPERATOR Lab [facility] - Lab Collection [facility] Floor 5 [place] [address] Primary cancer of left lower lobe of lung (HCC); Hypokalemia 12/05/2024 10:30 AM BOOTH OPERATOR Infusion [facility] - Infusion [address] [place] [address] Floor 6 [place] [address] Primary cancer of left lower lobe of lung (HCC) (Primary Dx); Hypokalemia 12/05/2024 9:20 AM BOOTH OPERATOR Office Visit [facility] [address] [place] [address] Floor 5 [place] [address] Shari Quintana NP Primary cancer of left lower lobe of lung (HCC) (Primary Dx); Hypokalemia 11/29/2024 Telephone [facility] [address] [place] [address] 5 [place] [address] Sasha Hernandes RN 11/28/2024 Telephone [facility] [address] [place] [address] 5 [place] [phone] Sasha Hernandes RN 11/28/2024 Orders Only [facility] [address] [place] [address] Floor 5 [place] [address] Sasha Hernandes RN Primary cancer of left lower lobe of lung (HCC) (Primary Dx); Hypokalemia 11/27/2024 Orders Only [facility] [address] [place] [address] Floor 5 [place] [address] Sasha Hernandes RN Primary cancer of left lower lobe of lung (HCC) (Primary Dx) 11/25/2024 Social Work [facility] [address] [place] [address] 5 [place] [address] Sarah Brunner, [facility] 11/14/2024 Orders Only [facility] [address] [place] [phone] Sasha Hernandes RN 11/14/2024 Orders Only [facility] [address] [place] [phone] Sasha Hernandes RN Hypokalemia (Primary Dx) 11/14/2024 8:00 AM BOOTH OPERATOR - 11/14/2024 11:59 PM [facility] Hospital [facility] [address] [place] [address] Stan Meza MD Hypokalemia (Primary Dx); Primary cancer of left lower lobe of lung (HCC) Discharge Disposition: Discharge to home or self care 11/11/2024 Social Work [facility] [address] [place] [phone] Sarah Brunner, [facility] 11/11/2024 Documentation [facility] Advanced Medicine Radiation Oncology [address] [place] [address] [place] [address] Delmi Saxena, [facility] 11/11/2024 Telephone [facility] Radiation Oncology [address] [place] [address] [place] [address] Jeffrey Ham MD 11/11/2024 Orders Only [facility] [address] [place] [phone] Sasha Hernandes RN Metastasis to bone (CMS/HCC) (HCC) (Primary Dx); Primary cancer of left lower lobe of lung (HCC) 11/07/2024 8:00 AM BOOTH OPERATOR Lab [facility] - Lab Collection [address] [place] [address] Primary cancer of left lower lobe of lung (HCC); Metastasis to bone (CMS/HCC) (HCC) 11/07/2024 10:30 AM BOOTH OPERATOR Infusion [facility] - Infusion [address] [place] [address] Floor 5 [place] [address] Primary cancer of left lower lobe of lung (HCC) (Primary Dx) 11/07/2024 8:15 AM BOOTH OPERATOR Lab [facility] Lab [address] [place] [address] 5 [place] [address] Primary cancer of left lower lobe of lung (HCC) 11/07/2024 9:20 AM BOOTH OPERATOR Office Visit [facility] [address] [place] [address] 5 [place] [address] Stan Meza MD Primary cancer of left lower lobe of lung (HCC) (Primary Dx); Metastasis to bone (CMS/HCC) (HCC) 11/06/2024 Orders Only [facility] [address] [place] [phone] Sasha Hernandes RN Primary cancer of left lower lobe of lung (HCC) (Primary Dx); Metastasis to bone (CMS/HCC) (HCC) 11/04/2024 Social Work [facility] [address] [place] [phone] Sarah Brunner, [facility] 10/29/2024 Social Work [facility] [address] [place] [phone] Carissa Long, TRACTOR ENGINE MECHANIC 10/29/2024 Telephone [facility] [address] [place] [phone] Kelly Montes [facility] 10/28/2024 Telephone [facility] [address] [place] [phone] Maddy Freire RN 10/25/2024 Telephone [facility] [address] [place] [phone] Sasha Hernandes RN 10/25/2024 2:15 PM BOOTH OPERATOR - 10/25/2024 11:59 PM BOOTH OPERATOR [facility] [address] [place] [address] Diagnosis unknown Discharge Disposition: Discharge to home or self care 10/24/2024 Telephone [facility] Nutrition Counseling 1 [place] [address] Dagmar Pickard, RD 10/24/2024 Documentation [facility] Floor 8 [place] [address] Olimpia Parr, A 10/18/2024 Documentation [facility] [address] [place] [address] Floor 5 [place] [address] Sarah Brunner, TRACTOR ENGINE MECHANIC 10/17/2024 Telephone [facility] Nutrition Counseling 1 [place] [address] Dagmar Pickard, RD 10/17/2024 Orders Only [facility] Floor 5 [place] [address] Pool Hong, [facility] 10/15/2024 Documentation [facility] Hospice - [address] [place] [phone] Gayatri Garza, RN 10/14/2024 Social Work [facility] Floor 5 [place] [address] Sarah Brunner, TRACTOR ENGINE MECHANIC 10/10/2024 Telephone [facility] Outpatient Health - Palliative Care [address] [facility] [place] [address] Mariah Altamirano, RN 10/03/2024 Telephone [facility] Advanced [facility] ([facility] - [facility] [address] [facility] Advanced Medicine 11th [place] [address] [place] [address] Alexsandra Augustine MS 10/03/2024 7:30 AM BOOTH OPERATOR Lab [facility] [place] - Lab Collection [address] [facility] Floor 5 [place] [address] Primary cancer of left lower lobe of lung (HCC) 10/03/2024 8:30 AM BOOTH OPERATOR Infusion [facility] - Infusion [address] [facility] Floor 5 [place] [address] Primary cancer of left lower lobe of lung (HCC) (Primary Dx) 09/30/2024 Social Work [facility] [address] [place] [address] Floor 5 [place] [address] Sarah Brunner, TRACTOR ENGINE MECHANIC 09/25/2024 9:00 AM BOOTH OPERATOR Infusion [facility] - Infusion [address] [facility] Floor 5 [place] [address] Primary cancer of left lower lobe of lung (HCC) (Primary Dx) 09/25/2024 7:00 AM BOOTH OPERATOR Lab [facility] - Lab Collection [address] [place] [address] Floor 5 [place] [address] Primary cancer of left lower lobe of lung (HCC) 09/25/2024 8:00 AM BOOTH OPERATOR Office Visit [facility] [address] [place] [phone] Stan Meza MD Primary cancer of left lower lobe of lung (HCC) (Primary Dx) 09/23/2024 Documentation [facility] Palliative Care [address] [place] [phone] Gayatri Garaz, ALYX 09/20/2024 Documentation [facility] [address] [place] [phone] Sarah Brunner, TRACTOR ENGINE MECHANIC 09/17/2024 Social Work [facility] [address] [place] [phone] Sarah Brunner, TRACTOR ENGINE MECHANIC 09/17/2024 Documentation [facility] Outpatient Health - Palliative Care [address] [place] [address] [place] [address] Mary Ellen Mckeon MD 09/17/2024 11:19 AM BOOTH OPERATOR - 09/17/2024 11:59 PM BOOTH OPERATOR Hospital Encounter [facility] Radiology [facility] [address] [place] [address] Discharge Disposition: Discharge to home or self care 09/16/2024 Orders Only [facility] [address] [facility] Floor 5 [place] [address] Sasha Hernandes RN Primary cancer of left lower lobe of lung (HCC) (Primary Dx) 09/11/2024 Telephone [facility] Outpatient Health - Palliative Care [address] [facility] [place] [address] Mariah Altamirano RN from Last [...] unit tablet Take 1 tablet by mouth paper sales representative before 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 30 tablet 3 09/25/20 24 [...] Preservative Free, Intramuscular 09/29/2023,08/04/2020,07/11/2019,08/09,11/02/2015 Influenza, Unspecified 08/13/2020 [employer] SARS-CoV-2 Vaccination 01/17/2021 Pneumococcal Conjugate Pcv20 [...] on file Legal Sex Male 6:04 PM BOOTH OPERATOR Gender Identity Not on file Sexual Orientation Not on file Last Filed Vital Signs Vital Sign Reading Time Taken Comments Blood Pressure 205/132 12/12/2024 1:00 PM BOOTH OPERATOR Pulse 79 12/12/2024 1:00 PM BOOTH OPERATOR Temperature 36.7 C (98.1 F) 12/12/2024 8:02 AM BOOTH OPERATOR Respiratory Rate 20 12/12/2024 1:00 PM BOOTH OPERATOR Oxygen Saturation 100% 12/12/2024 1:00 PM BOOTH OPERATOR Inhaled Oxygen Concentration - - Weight 83.9 kg (185 lb) 12/12/2024 8:02 AM BOOTH OPERATOR Height 175.3 cm (5' 9 ) 12/12/2024 8:02 AM BOOTH OPERATOR Body Mass Index 27.32 12/12/2024 8:02 AM BOOTH OPERATOR Plan of Treatment Not on file Procedures Procedure Name Priority Date/Time Associated Diagnosis Comments CT HEAD WO CONTRAST ED 12/12/2024 1 1:[address] CHEST ABDOMEN PELVIS W CONTRAST ED 12/12/2024 11:00 AM BOOTH OPERATOR TROPONIN I HIGH-SENSITIVITY 2-HOUR Timed 12/12/2024 10:33 AM BOOTH OPERATOR XR CHEST PA LATERAL 2 VIEWS ED 12/12/2024 10:28 AM BOOTH OPERATOR PRO B-TYPE NATRIURETIC PEPTIDE STAT 12/12/2024 9:35 AM BOOTH OPERATOR INFLUENZA A/B, RSV, AND COVID-19 PCR STAT 12/12/2024 9:35 AM BOOTH OPERATOR EGFR STAT 12/12/2024 8:45 AM BOOTH OPERATOR DIFFERENTIAL AUTO STAT 12/12/2024 8:4 5 AM BOOTH OPERATOR TROPONIN I HIGH-SENSITIVITY SERIES (BASELINE, 2HR, 4HR, 6HR) STAT 12/12/2024 8:45 AM BOOTH OPERATOR CBC WITH AUTO DIFFERENTIAL STAT 12/12/2024 8:45 AM BOOTH OPERATOR COMPREHENSIVE METABOLIC PANEL STAT 12/12/2024 8:45 AM BOOTH OPERATOR ECG 12-LEAD STAT 12/12/2024 8:16 AM BOOTH OPERATOR T3, FREE Routine 12/05/2024 9:34 AM BOOTH OPERATOR EGFR STAT 12/05/2024 9:34 AM BOOTH OPERATOR Primary cancer of left lower lobe of lung (HCC) T4, FREE Routine 12/05/2024 9:34 AM BOOTH OPERATOR Primary cancer of left lower lobe of lung (HCC) Hypokalemia DIFFERENTIAL AUTO STAT 12/05/2024 9:3 4 AM BOOTH OPERATOR Primary cancer of left lower lobe of lung (HCC) CBC WITH AUTO DIFFERENTIAL STAT 12/05/2024 9:34 AM BOOTH OPERATOR Primary cancer of left lower lobe of lung (HCC) COMPREHENSIVE METABOLIC PANEL STAT 12/05/2024 9:34 AM BOOTH OPERATOR Primary cancer of left lower lobe of lung (HCC) THYROID FUNCTION CASCADE Routine 12/05/2024 9:34 AM BOOTH OPERATOR Primary cancer of left lower lobe of lung (HCC) Hypokalemia EGFR STAT 11/14/2024 8:52 AM BOOTH OPERATOR Primary cancer of left lower lobe of lung (HCC) COMPREHENSIVE METABOLIC PANEL STAT 11/14/2024 8:52 AM BOOTH OPERATOR Primary cancer of left lower lobe of lung (HCC) DIFFERENTIAL AUTO STAT 11/14/2024 8:3 8 AM BOOTH OPERATOR Primary cancer of left lower lobe of lung (HCC) CBC WITH AUTO DIFFERENTIAL STAT 11/14/2024 8:38 AM BOOTH OPERATOR Primary cancer of left lower lobe of lung (HCC) EGFR STAT 11/07/2024 8:14 AM BOOTH OPERATOR Primary cancer of left lower lobe of lung (HCC) DIFFERENTIAL AUTO STAT 11/07/2024 8:1 4 AM BOOTH OPERATOR Primary cancer of left lower lobe of lung (HCC) MAGNESIUM STAT 11/07/2024 8:14 AM BOOTH OPERATOR Primary cancer of left lower lobe of lung (HCC) Metastasis to bone (CMS/HCC) (HCC) PHOSPHORUS STAT 11/07/2024 8:14 AM BOOTH OPERATOR Primary cancer of left lower lobe of lung (HCC) Metastasis to bone (CMS/HCC) (HCC) VITAMIN D 25 HYDROXY Routine 11/07/2024 8:14 AM BOOTH OPERATOR Primary cancer of left lower lobe of lung (HCC) Metastasis to bone (CMS/HCC) (HCC) CBC WITH AUTO DIFFERENTIAL STAT 11/07/2024 8:14 AM BOOTH OPERATOR Primary cancer of left lower lobe of lung (HCC) COMPREHENSIVE METABOLIC PANEL STAT 11/07/2024 8:14 AM BOOTH OPERATOR Primary cancer of left lower lobe of lung (HCC) CT BODY OUTSIDE CONSULT Routine 10/25/2024 2:15 PM BOOTH OPERATOR Diagnosis unknown DIFFERENTIAL AUTO Routine 10/03/2024 7:3 4 AM BOOTH OPERATOR Primary cancer of left lower lobe of lung (HCC) CBC WITH AUTO DIFFERENTIAL Routine 10/03/2024 7:34 AM BOOTH OPERATOR Primary cancer of left lower lobe of lung (HCC) EGFR STAT 09/25/2024 7:43 AM BOOTH OPERATOR Primary cancer of left lower lobe of lung (HCC) DIFFERENTIAL AUTO STAT 09/25/2024 7:4 3 AM BOOTH OPERATOR Primary cancer of left lower lobe of lung (HCC) CBC WITH AUTO DIFFERENTIAL STAT 09/25/2024 7:43 AM BOOTH OPERATOR Primary cancer of left lower lobe of lung (HCC) COMPREHENSIVE METABOLIC PANEL STAT 09/25/2024 7:43 AM BOOTH OPERATOR Primary cancer of left lower lobe of lung (HCC) CT BODY OUTSIDE REFERENCE Routine 09/17/2024 11:19 AM BOOTH OPERATOR from Last 3 Months Results * CT Chest Abdomen Pelvis W Contrast (12/12/2024 11:00 AM BOOTH OPERATOR) Anatomical Region Laterality Modality Body N/A Computed Tomogra phy 12/12/2024 11:3 3 AM BOOTH OPERATOR Impressions 12/12/2024 11:33 AM BOOTH OPERATOR 1. Similar burden of osseous metastasis, treated bilateral adrenal metastasis, and slightly smaller measurement of left hilar tumor. No evidence of progression. 2. Similar degree of mild severity peripheral lung damage/organized pneumonia. Electronically signed by: El Bee M.D. Narrative 12/12/2024 11:33 AM BOOTH OPERATOR EXAMINATION: Computed tomography of the chest, [...] pneumonia. Electronically signed by: El Bee M.D. Andreson Bahena MD IM CT PROCEDURES Final Result * CT Head WO Contrast (12/12/2024 11:00 AM BOOTH OPERATOR) Anatomical Region Laterality Modality Head and Neck N/A Computed Tomogra phy 12/12/2024 11:0 7 AM BOOTH OPERATOR Impressions 12/12/2024 11:07 AM BOOTH OPERATOR 1. No acute intracranial hemorrhage, mass effect, or large new area of edema.. Note is made that a contrast-enhanced examination would be more sensitive for the detection of intracranial metastases. Electronically signed by: Luciano Napier M.D. Narrative 12/12/2024 11:07 AM BOOTH OPERATOR EXAMINATION: CT head without contrast HISTORY: [...] Troponin I high-sensitivity 2-hour (12/12/2024 10:33 AM BOOTH OPERATOR) Trop I hs 6 <=35 ng/L Comment: Interpretive Data For further hscTnI resources including the diagnostic algorithm and an aid in interpretation, copy and paste this link: https://bjhlab.testcatalog.org/show/hsTrop-1 Current Interpretive Data last revised 2020. Trop I hs delta 1 ng/L [facility] Trop I hs interp Insignificant [facility] Blood 12/12/2024 10:3 3 AM BOOTH OPERATOR 12/12/2024 10:45 AM BOOTH OPERATOR Natalie Guzman MD LAB BLOOD ORDERABLES Yolette banda Result [facility] Department [place] [address] * XR Chest PA Lateral 2 Views (12/12/2024 10:28 AM BOOTH OPERATOR) Anatomical Region Laterality Modality Body, Chest N/A Computed Radiogr aphy 12/12/2024 11:1 1 AM BOOTH OPERATOR Impressions 12/12/2024 11:11 AM BOOTH OPERATOR Comparison May 2024. Low lung volumes. [...] El Bee M.D. Narrative 12/12/2024 11:11 AM BOOTH OPERATOR EXAMINATION: 2 view chest radiograph Procedure [...] and COVID-19 PCR Nasopharyngeal (12/12/2024 9:35 AM BOOTH OPERATOR) COVID-19 RNA Negative Negative [facility] Influenza A RNA Negative Negative [facility] Influenza B RNA Negative Negative [facility] RSV RNA Negative Negative [facility] Comment: Interpretive data: Testing performed by [facility] ([phone]). This test is performed using the [employer] Xpert Xpress CoV-2/Flu/RSV plus assay. This is a multiplex, real-time reverse transcriptase PCR assay intended for the qualitative detection of nucleic acid from SARS-CoV-2, influenza A, influenza B, and respiratory syncytial virus. This assay has been cleared by the [place] Food and Drug administration. The performance characteristics have been verified by the [facility]. Results must be considered in the clinical context, and a negative result does not rule out infection. Interpretive Data last revised 2023 Nasopharyngeal 12/12/2024 9: 35 AM BOOTH OPERATOR 12/12/2024 9:46 AM BOOTH OPERATOR Narrative [facility] - 12/12/2024 10:27 AM BOOTH OPERATOR Is the Patient experiencing symptoms consistent with COVID?->No Anderson Bahena MD LAB MICROBIOLOGY - GENE RAL ORDERABLES Final Result [facility] Department [place] [address] [facility] * (ABNORMAL) Pro B-type natriuretic peptide (12/12/2024 9:35 AM BOOTH OPERATOR) NT-proBNP 695(H) <=300 pg/mL Comment: Interpretive [...] Revised Date: 2018. Blood 12/12/2024 9:35 AM BOOTH OPERATOR 12/12/2024 9:48 AM BOOTH OPERATOR Anderson Bahena MD LAB BLOOD ORDERABLES Fi nal Result Performing Organization Address [facility] de Phone Number [facility] Department [place] [address] * Troponin I high-sensitivity series (baseline, 2hr, 4hr, 6hr) (12/12/2024 8:45 AM BOOTH OPERATOR) Trop I hs 5 <=35 ng/L Comment: Interpretive Data For further [facility] resources including the diagnostic algorithm and an aid in interpretation, copy and paste this link: https://bjhlab.testcatalog.org/show/hsTrop-1 Current Interpretive Data last revised 2020. Blood 12/12/2024 8:45 AM BOOTH OPERATOR 12/12/2024 8:55 AM BOOTH OPERATOR us Julio Rodriguez MD LAB BLOOD ORDERABLES F inal Result Performing Organization Address [facility] de Phone Number [facility] Department [place] [address] * eGFR (12/12/2024 8:45 AM BOOTH OPERATOR) eGFR >90 >=60 mL/min/1. 73 m2 [...] last reviewed 2021. Blood 12/12/2024 8:45 AM BOOTH OPERATOR 12/12/2024 8:55 AM BOOTH OPERATOR us Julio Rodriguez MD LAB BLOOD ORDERABLES F inal Result [facility] Department [place] [address] * (ABNORMAL) Differential, auto (12/12/2024 8:45 AM BOOTH OPERATOR) Neutrophil abs 3.7 1.5 - 6.5 K/cumm Imm gran abs 0.0 0.0 - 0.1 K/cumm [facility] Lymphocyte abs 0.7(L) 0.8 - 3.3 K/cumm [facility] Monocyte abs 0.4 0.2 - 0.8 K/cumm [facility] Eosinophil abs 0.3 0.0 - 0.5 K/cumm [facility] Basophil abs 0.0 0.0 - 0.1 K/cumm [facility] Neutrophil pct 72.0 % [facility] Comment: Interpretive Data Percent cell count reference ranges are not reported, since discordance with absolute values may lead to misinterpretation of CBC data. Current Interpretive Data was last revised on 2018. Imm gran pct 0.4 % [facility] Comment: Interpretive Data Percent cell count reference ranges are not reported, since discordance with absolute values may lead to misinterpretation of CBC data. Current Interpretive Data was last revised on 2018. Lymphocyte pct 12.7 % [facility] Comment: Interpretive Data Percent cell count reference ranges are not reported, since discordance with absolute values may lead to misinterpretation of CBC data. Current Interpretive Data was last revised on 2018. Monocyte pct 7.6 % [facility] Comment: Interpretive Data Percent cell count reference ranges are not reported, since discordance with absolute values may lead to misinterpretation of CBC data. Current Interpretive Data was last revised on 2018. Eosinophil pct 6.7 % [facility] Comment: Interpretive Data Percent cell count reference ranges are not reported, since discordance with absolute values may lead to misinterpretation of CBC data. Current Interpretive Data was last revised on 2018. Basophil pct 0.6 % [facility] Comment: Interpretive Data Percent cell count reference ranges are not reported, since discordance with absolute values may lead to misinterpretation of CBC data. Current Interpretive Data was last revised on 2018. Blood 12/12/2024 8:45 AM BOOTH OPERATOR 12/12/2024 8:55 AM BOOTH OPERATOR Julio Rodriguez MD LAB BLOOD ORDERABLES F inal Result [facility] Department [place] [address] * (ABNORMAL) CBC with auto differential (12/12/2024 8:45 AM BOOTH OPERATOR) WBC 5.1 3.8 - 9.9 K/cumm Hgb 10.3(L) 13.0 - 17.5 g/dL [facility] Hct 31.8(L) 38.9 - 50.3 % [facility] Plt 176 150 - 400 K/cumm [facility] MPV 8.9(L) 9.1 - 12.3 fL [facility] RBC 3.55(L) 4.30 - 5.80 M/cumm [facility] MCV 89.6 81.3 - 96.4 fL [facility] MCH 29.0 27.1 - 33.3 pg [facility] MCHC 32.4 32.3 - 35.7 g/dL [facility] RDW CV 19.2(H) 11.1 - 14.9 % [facility] RDW SD 63.2(H) 35.7 - 48.1 fL [facility] NRBC abs 0.00 0.00 - 0.01 K/cumm [facility] Blood 12/12/2024 8:45 AM BOOTH OPERATOR 12/12/2024 8:55 AM BOOTH OPERATOR Julio Rodriguez MD LAB BLOOD ORDERABLES F inal Result [facility] Department [place] [address] * (ABNORMAL) Comprehensive metabolic panel (12/12/2024 8:45 AM BOOTH OPERATOR) Sodium 133(L) 135 - 145 mmol/L Potassium, pl 4.0 3.3 - 4.9 mmol/L [facility] Chloride 97 97 - 110 mmol/L [facility] CO2 29 22 - 32 mmol/L [facility] Anion gap 7 2 - 15 mmol/L [facility] BUN 3(L) 6 - 25 mg/dL [facility] Creatinine 0.54(L) 0.80 - 1.30 mg/dL [facility] [facility] Glucose 101 70 - 199 mg/dL [facility] 2022. Calcium 9.4 8.5 - 10.3 mg/dL [facility] Bilirubin, total 0.4 0.1 - 1.2 mg/dL [facility] Protein, pl 6.6 6.5 - 8.5 g/dL [facility] Albumin 3.6 3.5 - 5.0 g/dL [facility] Alk phos 121 40 - 130 Units/L [facility] ALT 11 7 - 55 Units/L [facility] AST 19 10 - 50 Units/L [facility] Blood 12/12/2024 8:45 AM BOOTH OPERATOR 12/12/2024 8:55 AM BOOTH OPERATOR Julio Rodriguez MD LAB BLOOD ORDERABLES F inal Result [facility] Department [place] [address] * ECG 12-LEAD (12/12/2024 8:16 AM BOOTH OPERATOR) Narrative [facility] - 12/12/2024 8:16 AM BOOTH OPERATOR Julio Rodriguez MD 12/12/2024 8:16 AM [...] Julio Rodriguez MD ECG ORDERABLES Final Result [facility] * eGFR (12/05/2024 9:34 AM BOOTH OPERATOR) eGFR >90 >=60 mL/min/1. 73 m2 [...] last reviewed 2021. Blood 12/05/2024 9:34 AM BOOTH OPERATOR 12/05/2024 9:39 AM BOOTH OPERATOR us Stan Meza MD LAB BLOOD ORDERABLES Yolette l Result Performing Organization Address City/[facility] Co de Phone Number INDERJITALDO MARTÍN [facility] Department [place] [address] * Differential, auto (12/05/2024 9:34 AM BOOTH OPERATOR) Pathologist [facility] Neutrophil abs 2.5 1.5 - 6.5 K/cumm Comment:Testing performed by : [facility], [address] [place] [phone] Lymphocyte abs 0.8 0.8 - 3.3 K/cumm [facility]IZ Comment:Testing performed by : [facility], [address] [place] [phone] Monocyte abs 0.8 0.2 - 0.8 K/cumm [facility] Comment:Testing performed by : [facility], [address] [place] [phone] Eosinophil abs 0.2 0.0 - 0.5 K/cumm [facility] Comment:Testing performed by : [facility], [address] [place] [phone] Basophil abs 0.0 0.0 - 0.1 K/cumm [facility] Comment:Testing performed by : [facility], [address] [place] [phone] Neutrophil pct 58.7 % [facility] Comment: Interpretive Data Percent cell count reference ranges are not reported, since discordance with absolute values may lead to misinterpretation of CBC data. Current Interpretive Data was last revised on 2018. Testing performed by: [facility], [address] [place] [phone] Lymphocyte pct 17.5 % [facility] Comment: Interpretive Data Percent cell count reference ranges are not reported, since discordance with absolute values may lead to misinterpretation of CBC data. Current Interpretive Data was last revised on 2018. Testing performed by: [facility], [address] [place] [phone] Monocyte pct 19.3 % [facility] Comment: Interpretive Data Percent cell count reference ranges are not reported, since discordance with absolute values may lead to misinterpretation of CBC data. Current Interpretive Data was last revised on 2018. Testing performed by: [facility], [address] [place] [phone] Eosinophil pct 4.0 % [facility] Comment: Interpretive Data Percent cell count reference ranges are not reported, since discordance with absolute values may lead to misinterpretation of CBC data. Current Interpretive Data was last revised on 2018. Testing performed by: [facility], [address] [place] [phone] Basophil pct 0.5 % [facility] Comment: Interpretive Data Percent cell count reference ranges are not reported, since discordance with absolute values may lead to misinterpretation of CBC data. Current Interpretive Data was last revised on 2018. Testing performed by: [facility], [address] [place] [phone] Blood 12/05/2024 9:34 AM BOOTH OPERATOR 12/05/2024 9:39 AM BOOTH OPERATOR Stan Meza MD LAB BLOOD ORDERABLES Yolette l Result Performing Organization Address City/[facility] Co de Phone Number [facility] [place] [address] * (ABNORMAL) Thyroid Function [place] (12/05/2024 9:34 AM BOOTH OPERATOR) TSH 0.24(L) 0.30 - 4.20 mcIUnit/mL Blood 12/05/2024 9:34 AM BOOTH OPERATOR 12/05/2024 9:39 AM BOOTH OPERATOR Stan Meza MD LAB BLOOD ORDERABLES Yolette l Result Performing Organization Address [facility] de Phone Number [facility] Department [place] [address] * (ABNORMAL) CBC with auto differential (12/05/2024 9:34 AM BOOTH OPERATOR) WBC 4.3 3.8 - 9.9 K/cumm Comment:Testing performed by : [facility], [address] [place] [phone] Hgb 10.0(L) 13.0 - 17.5 g/dL [facility] Comment:Testing performed by : [facility], [address] [place] [phone] Hct 31.1(L) 38.9 - 50.3 % [facility] Comment:Testing performed by : [facility], [address] [place] [phone] Plt 124(L) 150 - 400 K/cumm [facility] Comment:Testing performed by : [facility], [address] [place], [place] [phone] MPV 7.4 6.8 - 10.4 fL [facility] Comment:Testing performed by : [facility], [address] [place] [address] RBC 3.43(L) 4.30 - 5.80 M/cumm [facility] Comment:Testing performed by : [facility], [address] [place], [place] [phone] MCV 90.7 81.3 - 96.4 fL [facility] Comment:Testing performed by : [facility], [address] [place], [place] [phone] MCH 29.1 27.1 - 33.3 pg [facility] Comment:Testing performed by : [facility], [address] [place], [place] [phone] MCHC 32.1(L) 32.3 - 35.7 g/dL [facility] Comment:Testing performed by : [facility], [address] [place] [address] RDW CV 18.8(H) 11.1 - 14.9 % [facility] Comment:Testing performed by : [facility], [address] [place] [address] NRBC abs 0.00 0.00 - 0.01 K/cumm [facility] Comment:Testing performed by : [facility], [address] [place] [address] Blood 12/05/2024 9:34 AM BOOTH OPERATOR 12/05/2024 9:39 AM BOOTH OPERATOR us Stan Meza MD LAB BLOOD ORDERABLES Yolette banda Result [facility] Department [place] [address] * T3, free (12/05/2024 9:34 AM BOOTH OPERATOR) Free T3 2.7 2.0 - 4.4 pg/mL Blood 12/05/2024 9:34 AM BOOTH OPERATOR 12/05/2024 9:39 AM BOOTH OPERATOR Narrative [facility] - 12/05/2024 11:06 AM BOOTH OPERATOR This test was reflexed from a T4 result. Stan Meza MD LAB BLOOD ORDERABLES Yolette l Result Performing Organization Address [facility] Co de Phone Number [facility] [place] [address] * T4, free (12/05/2024 9:34 AM BOOTH OPERATOR) [facility] Free T4 1.26 0.90 - 1.70 ng/dL Blood 12/05/2024 9:34 AM BOOTH OPERATOR 12/05/2024 9:39 AM BOOTH OPERATOR Narrative [facility] - 12/05/2024 10:41 AM BOOTH OPERATOR This test was reflexed from a TSH result. Stan Meza MD LAB BLOOD ORDERABLES Yolette l Result Performing Organization Address [facility] de Phone Number [facility] [place] [address] * (ABNORMAL) Comprehensive metabolic panel (12/05/2024 9:34 AM BOOTH OPERATOR) [facility] Sodium 133(L) 135 - 145 mmol/L Potassium, pl 4.0 3.3 - 4.9 mmol/L [facility] Chloride 98 97 - 110 mmol/L [facility] CO2 28 22 - 32 mmol/L [facility] Anion gap 7 2 - 15 mmol/L [facility] BUN 5(L) 6 - 25 mg/dL [facility] Creatinine 0.65(L) 0.80 - 1.30 mg/dL [facility] Glucose 106 70 - 199 mg/dL [facility] Calcium 9.5 8.5 - 10.3 mg/dL [facility] Bilirubin, total 0.2 0.1 - 1.2 mg/dL [facility] Protein, pl 6.9 6.5 - 8.5 g/dL [facility] Albumin 3.8 3.5 - 5.0 g/dL [facility] Alk phos 127 40 - 130 Units/L [facility] ALT 7 7 - 55 Units/L [facility] AST 17 10 - 50 Units/L [facility] Blood 12/05/2024 9:34 AM BOOTH OPERATOR 12/05/2024 9:39 AM BOOTH OPERATOR us Stan Meza MD LAB BLOOD ORDERABLES Yolette banda Result [facility] Department [place] [address] * eGFR (11/14/2024 8:52 AM BOOTH OPERATOR) eGFR >90 >=60 mL/min/1. 73 m2 [...] last reviewed 2021. Blood 11/14/2024 8:52 AM BOOTH OPERATOR 11/14/2024 8:59 AM BOOTH OPERATOR us Stan Meza MD LAB BLOOD ORDERABLES Yolette banda Result [facility] Department [place] [address] * (ABNORMAL) Comprehensive metabolic panel (11/14/2024 8:52 AM BOOTH OPERATOR) Sodium 139 135 - 145 mmol/L Potassium, pl 3.1(L) 3.3 - 4.9 mmol/L [facility] Chloride 101 97 - 110 mmol/L [facility] CO2 31 22 - 32 mmol/L [facility] Anion gap 7 2 - 15 mmol/L [facility] BUN 4(L) 6 - 25 mg/dL [facility] Creatinine 0.64(L) 0.80 - 1.30 mg/dL [facility] Glucose 113 70 - 199 mg/dL [facility] 2022. Calcium 9.0 8.5 - 10.3 mg/dL [facility] Bilirubin, total 0.3 0.1 - 1.2 mg/dL [facility] Protein, pl 6.9 6.5 - 8.5 g/dL [facility] Albumin 3.9 3.5 - 5.0 g/dL [facility] Alk phos 128 40 - 130 Units/L [facility] ALT 9 7 - 55 Units/L [facility] AST 16 10 - 50 Units/L [facility] Blood 11/14/2024 8:52 AM BOOTH OPERATOR 11/14/2024 8:59 AM BOOTH OPERATOR us Stan Meza MD LAB BLOOD ORDERABLES Yolette banda Result [facility] Department [place] [address] * (ABNORMAL) Differential, auto (11/14/2024 8:38 AM BOOTH OPERATOR) Neutrophil abs 2.4 1.5 - 6.5 K/cumm Imm gran abs 0.0 0.0 - 0.1 K/cumm [facility] Lymphocyte abs 0.6(L) 0.8 - 3.3 K/cumm [facility] Monocyte abs 0.2 0.2 - 0.8 K/cumm [facility] Eosinophil abs 0.1 0.0 - 0.5 K/cumm [facility] Basophil abs 0.1 0.0 - 0.1 K/cumm [facility] Neutrophil pct 70.0 % [facility] Comment: Interpretive Data Percent cell count reference ranges are not reported, since discordance with absolute values may lead to misinterpretation of CBC data. Current Interpretive Data was last revised on 2018. Imm gran pct 0.9 % [facility] Comment: Interpretive Data Percent cell count reference ranges are not reported, since discordance with absolute values may lead to misinterpretation of CBC data. Current Interpretive Data was last revised on 2018. Lymphocyte pct 18.5 % [facility] Comment: Interpretive Data Percent cell count reference ranges are not reported, since discordance with absolute values may lead to misinterpretation of CBC data. Current Interpretive Data was last revised on 2018. Monocyte pct 5.6 % [facility] Comment: Interpretive Data Percent cell count reference ranges are not reported, since discordance with absolute values may lead to misinterpretation of CBC data. Current Interpretive Data was last revised on 2018. Eosinophil pct 3.5 % [facility] Comment: Interpretive Data Percent cell count reference ranges are not reported, since discordance with absolute values may lead to misinterpretation of CBC data. Current Interpretive Data was last revised on 2018. Basophil pct 1.5 % [facility] Comment: Interpretive Data Percent cell count reference ranges are not reported, since discordance with absolute values may lead to misinterpretation of CBC data. Current Interpretive Data was last revised on 2018. Blood 11/14/2024 8:38 AM BOOTH OPERATOR 11/14/2024 8:59 AM BOOTH OPERATOR us Stan Meza MD LAB BLOOD ORDERABLES Yolette banda Result [facility] Department [place] [address] * (ABNORMAL) CBC with auto differential (11/14/2024 8:38 AM BOOTH OPERATOR) WBC 3.4(L) 3.8 - 9.9 K/cumm Hgb 9.3(L) 13.0 - 17.5 g/dL [facility] Hct 28.9(L) 38.9 - 50.3 % [facility] Plt 196 150 - 400 K/cumm [facility] MPV 10.5 9.1 - 12.3 fL [facility] RBC 3.34(L) 4.30 - 5.80 M/cumm [facility] MCV 86.5 81.3 - 96.4 fL [facility] MCH 27.8 27.1 - 33.3 pg [facility] MCHC 32.2(L) 32.3 - 35.7 g/dL [facility] RDW CV 18.5(H) 11.1 - 14.9 % [facility] RDW SD 59.2(H) 35.7 - 48.1 fL [facility] NRBC abs 0.00 0.00 - 0.01 K/cumm [facility] Blood 11/14/2024 8:38 AM BOOTH OPERATOR 11/14/2024 8:59 AM BOOTH OPERATOR Stan Meza MD LAB BLOOD ORDERABLES Yolette l Result Performing Organization Address City/[facility]/ZIP Co de Phone Number [facility] Department [place] [address] * eGFR (11/07/2024 8:14 AM BOOTH OPERATOR) Pathologist [facility] eGFR >90 >=60 mL/min/1. 73 m2 Comment: [...] last reviewed 2021. Blood 11/07/2024 8:14 AM BOOTH OPERATOR 11/07/2024 8:18 AM BOOTH OPERATOR Stan Meza MD LAB BLOOD ORDERABLES Yolette l Result Performing Organization Address City/[facility]/ZIP Co de Phone Number [facility] [place] [address] * Differential, auto (11/07/2024 8:14 AM BOOTH OPERATOR) Neutrophil abs 3.0 1.5 - 6.5 K/cumm Comment:Testing performed by : [facility], [address] [place] [address] [place] [phone] Lymphocyte abs 0.8 0.8 - 3.3 K/cumm [facility] Comment:Testing performed by : [facility], [address] [place] [phone] Monocyte abs 0.7 0.2 - 0.8 K/cumm [facility] Comment:Testing performed by : [facility], [address] [place], [place] [phone] Eosinophil abs 0.3 0.0 - 0.5 K/cumm [facility] Comment:Testing performed by : [facility], [address] [place] [phone] Basophil abs 0.1 0.0 - 0.1 K/cumm [facility] Comment:Testing performed by : [facility], [address] [place] [phone] Neutrophil pct 60.9 % [facility] Comment: Interpretive Data Percent cell count reference ranges are not reported, since discordance with absolute values may lead to misinterpretation of CBC data. Current Interpretive Data was last revised on 2018. Testing performed by: [facility], [address] [place] [phone] Lymphocyte pct 17.4 % [facility] Comment: Interpretive Data Percent cell count reference ranges are not reported, since discordance with absolute values may lead to misinterpretation of CBC data. Current Interpretive Data was last revised on 2018. Testing performed by: [facility], [address] [place] [phone] Monocyte pct 14.4 % [facility] Comment: Interpretive Data Percent cell count reference ranges are not reported, since discordance with absolute values may lead to misinterpretation of CBC data. Current Interpretive Data was last revised on 2018. Testing performed by: [facility], [address] [place] [phone] Eosinophil pct 6.2 % [facility] Comment: Interpretive Data Percent cell count reference ranges are not reported, since discordance with absolute values may lead to misinterpretation of CBC data. Current Interpretive Data was last revised on 2018. Testing performed by: [facility], [address] [place] [phone] Basophil pct 1.1 % [facility] Comment: Interpretive Data Percent cell count reference ranges are not reported, since discordance with absolute values may lead to misinterpretation of CBC data. Current Interpretive Data was last revised on 2018. Testing performed by: [facility], [address] [place] [phone] Blood 11/07/2024 8:14 AM BOOTH OPERATOR 11/07/2024 8:16 AM BOOTH OPERATOR us Stan Meza MD LAB BLOOD ORDERABLES Yolette banda Result [facility] Department [place] [address] * (ABNORMAL) CBC with auto differential (11/07/2024 8:14 AM BOOTH OPERATOR) WBC 4.9 3.8 - 9.9 K/cumm Comment:Testing performed by : [facility], [address] [place] [phone] Hgb 9.8(L) 13.0 - 17.5 g/dL [facility] Comment:Testing performed by : [facility], [address] [place] [phone] Hct 30.1(L) 38.9 - 50.3 % [facility] Comment:Testing performed by : [facility], [address] [place] [phone] Plt 232 150 - 400 K/cumm [facility] Comment:Testing performed by : [facility], [address] [place] [phone] MPV 6.8 6.8 - 10.4 fL [facility] Comment:Testing performed by : [facility], [address] [place] [address] RBC 3.47(L) 4.30 - 5.80 M/cumm [facility] Comment:Testing performed by : [facility], [address] [place], [place] [phone] MCV 86.6 81.3 - 96.4 fL [facility] Comment:Testing performed by : [facility], [address] [place], [place] [phone] MCH 28.3 27.1 - 33.3 pg [facility] Comment:Testing performed by : [facility], [address] [place] [phone] MCHC 32.6 32.3 - 35.7 g/dL [facility] Comment:Testing performed by : [facility], [address] [place] [phone] RDW CV 21.1(H) 11.1 - 14.9 % [facility] Comment:Testing performed by : [facility], [address] [place], [place] [phone] NRBC abs 0.00 0.00 - 0.01 K/cumm [facility] Comment:Testing performed by : [facility], [address] [place], [place] [phone] Blood 11/07/2024 8:14 AM BOOTH OPERATOR 11/07/2024 8:16 AM BOOTH OPERATOR Stan Meza MD LAB BLOOD ORDERABLES Yolette l Result Performing Organization Address [facility] Co de Phone Number [facility] [place] [address] * (ABNORMAL) Vitamin D 25 hydroxy (11/07/2024 8:14 AM BOOTH OPERATOR) Vitamin D 25-OH 23(L) 30 - 80 ng/mL Blood 11/07/2024 8:14 AM BOOTH OPERATOR 11/07/2024 8:18 AM BOOTH OPERATOR Stan Meza MD LAB BLOOD ORDERABLES Yolette l Result Performing Organization Address [facility] Co de Phone Number [facility] Department [place] [address] * Phosphorus (11/07/2024 8:14 AM BOOTH OPERATOR) [facility] Phosphorus, pl 3.4 2.3 - 4.5 mg/dL Blood 11/07/2024 8:14 AM BOOTH OPERATOR 11/07/2024 8:18 AM BOOTH OPERATOR Stan Meza MD LAB BLOOD ORDERAB[place] [address] * Magnesium (11/07/2024 8:14 AM BOOTH OPERATOR) [facility] Magnesium 1.7 1.4 - 2.5 mg/dL Blood 11/07/2024 8:14 AM BOOTH OPERATOR 11/07/2024 8:18 AM BOOTH OPERATOR Satn Meza MD LAB BLOOD ORDERABLES Yolette l Result Performing Organization Address City/[facility]/[place] [address] * (ABNORMAL) Comprehensive metabolic panel (11/07/2024 8:14 AM BOOTH OPERATOR) [facility] Sodium 138 135 - 145 mmol/L Potassium, pl 3.5 3.3 - 4.9 mmol/L [facility] Chloride 101 97 - 110 mmol/L [facility] CO2 28 22 - 32 mmol/L [facility] Anion gap 9 2 - 15 mmol/L [facility] BUN 4(L) 6 - 25 mg/dL [facility] Creatinine 0.66(L) 0.80 - 1.30 mg/dL [facility] Glucose 97 70 - 199 mg/dL [facility] [...] 2022. Calcium 9.3 8.5 - 10.3 mg/dL [facility] Bilirubin, total 0.3 0.1 - 1.2 mg/dL [facility] Protein, pl 6.6 6.5 - 8.5 g/dL [facility] Albumin 3.6 3.5 - 5.0 g/dL [facility] Alk phos 123 40 - 130 Units/L [facility] ALT 7 7 - 55 Units/L [facility] AST 14 10 - 50 Units/L [facility] Blood 11/07/2024 8:14 AM BOOTH OPERATOR 11/07/2024 8:18 AM BOOTH OPERATOR us Stan Meza MD LAB BLOOD ORDERABLES Yolette l Result [facility] [place] [address] * CT Body Outside Consult (10/25/2024 2:15 PM BOOTH OPERATOR) Anatomical Region Laterality Modality Body N/A Computed Tomogra phy 10/27/2024 7:03 PM BOOTH OPERATOR Impressions 10/27/2024 7:03 PM BOOTH OPERATOR 1. Marked response to therapy in [...] images may or may not represent the redding source data set and thus may contain changes that may lower the accuracy of this second-opinion interpretation. Electronically signed by: Wally Garg M.D. Narrative 10/27/2024 7:03 PM BOOTH OPERATOR EXAMINATION: RADIOLOGY CONSULTATION ON OUTSIDE IMAGING STUDY STUDY INITIALLY PERFORMED: 10/23/2024 at [facility]. TYPE OF STUDY: Multiple CT images of [...] IMAGING STUDY STUDY INITIALLY PERFORMED: 10/23/2024 at [facility]. TYPE OF STUDY: Multiple CT images of [...] images may or may not represent the redding source data set and thus may contain changes that may lower the accuracy of this second-opinion interpretation. Electronically signed by: Wally Garg M.D. Stan Meza MD IM CT PROCEDURES Final R esult * Differential, auto (10/03/2024 7:34 AM BOOTH OPERATOR) Neutrophil abs 2.5 1.5 - 6.5 K/cumm Comment:Testing performed by : [facility], [address] [place] [phone] Lymphocyte abs 0.8 0.8 - 3.3 K/cumm CHEMA RESENDIZ Comment:Testing performed by : [facility], [address] [place] [phone] Monocyte abs 0.4 0.2 - 0.8 K/cumm [facility] Comment:Testing performed by : [facility], [address] [place] [phone] Eosinophil abs 0.1 0.0 - 0.5 K/cumm [facility] Comment:Testing performed by : [facility], [address] [place] [phone] Basophil abs 0.0 0.0 - 0.1 K/cumm [facility] Comment:Testing performed by : [facility], [address] [place] [phone] Neutrophil pct 65.4 % [facility] Comment: Interpretive Data Percent cell count reference ranges are not reported, since discordance with absolute values may lead to misinterpretation of CBC data. Current Interpretive Data was last revised on 2018. Testing performed by: [facility], [address] [place] [phone] Lymphocyte pct 21.8 % [facility] Comment: Interpretive Data Percent cell count reference ranges are not reported, since discordance with absolute values may lead to misinterpretation of CBC data. Current Interpretive Data was last revised on 2018. Testing performed by: [facility], [address] [place] [phone] Monocyte pct 10.8 % [facility] Comment: Interpretive Data Percent cell count reference ranges are not reported, since discordance with absolute values may lead to misinterpretation of CBC data. Current Interpretive Data was last revised on 2018. Testing performed by: [facility], [address] [place] [phone] Eosinophil pct 1.8 % [facility] Comment: Interpretive Data Percent cell count reference ranges are not reported, since discordance with absolute values may lead to misinterpretation of CBC data. Current Interpretive Data was last revised on 2018. Testing performed by: [facility], [address] [place] [phone] Basophil pct 0.2 % [facility] Comment: Interpretive Data Percent cell count reference ranges are not reported, since discordance with absolute values may lead to misinterpretation of CBC data. Current Interpretive Data was last revised on 2018. Testing performed by: [facility], [address] [place] [address] Blood 10/03/2024 7:34 AM BOOTH OPERATOR 10/03/2024 7:37 AM BOOTH OPERATOR Stan Meza MD LAB BLOOD ORDERABLES Yolette veronika Result [facility] [place] [address] * (ABNORMAL) CBC with auto differential (10/03/2024 7:34 AM BOOTH OPERATOR) WBC 3.8 3.8 - 9.9 K/cumm Comment:Testing performed by : [facility], [address] [place] [address] Hgb 9.0(L) 13.0 - 17.5 g/dL [facility] Comment:Testing performed by : [facility], [address] [place] [address] Hct 27.9(L) 38.9 - 50.3 % CERALDO [facility] Comment:Testing performed by : [facility], [address] [place] [address] Plt 252 150 - 400 K/cumm CERALDO [facility] Comment:Testing performed by : [facility], [address] [place] [address] MPV 6.8 6.8 - 10.4 fL CERALDO [facility] Comment:Testing performed by : [facility], [address] [place] [address] RBC 3.40(L) 4.30 - 5.80 M/cumm CERALDO [facility] Comment:Testing performed by : [facility], [address] [place] [address] MCV 82.0 81.3 - 96.4 fL CERALDO [facility] Comment:Testing performed by : [facility], [address] [place] [address] MCH 26.6(L) 27.1 - 33.3 pg [facility] Comment:Testing performed by : [facility], [address] [place] [address] MCHC 32.4 32.3 - 35.7 g/dL [facility] Comment:Testing performed by : [facility], [address] [place] [address] RDW CV 17.7(H) 11.1 - 14.9 % [facility] Comment:Testing performed by : [facility], [address] [place] [address] NRBC abs 0.00 0.00 - 0.01 K/cumm [facility] Comment:Testing performed by : [facility], [address] [place] [address] Blood 10/03/2024 7:34 AM BOOTH OPERATOR 10/03/2024 7:37 AM BOOTH OPERATOR us Stan Meza MD LAB BLOOD ORDERABLES Yolette banda Result [facility] Department [place] [address] * eGFR (09/25/2024 7:43 AM BOOTH OPERATOR) eGFR >90 >=60 mL/min/1. 73 m2 [...] last reviewed 2021. Blood 09/25/2024 7:43 AM BOOTH OPERATOR 09/25/2024 7:51 AM BOOTH OPERATOR us Stan Meza MD LAB BLOOD ORDERABLES Yolette veronika Result [facility] Department [place] [address] * (ABNORMAL) Differential, auto (09/25/2024 7:43 AM BOOTH OPERATOR) Neutrophil abs 4.1 1.5 - 6.5 K/cumm Comment:Testing performed by : [facility], [address] [place], [place] [phone] Lymphocyte abs 0.8 0.8 - 3.3 K/cumm CERNER [facility] Comment:Testing performed by : [facility], [address] [place] [phone] Monocyte abs 0.9(H) 0.2 - 0.8 K/cumm CERNER [facility]J Comment:Testing performed by : [facility], [address] [place], [place] [phone] Eosinophil abs 0.1 0.0 - 0.5 K/cumm C[facility]ER [facility] Comment:Testing performed by : [facility], [address] [place] [phone] Basophil abs 0.1 0.0 - 0.1 K/cumm C[facility]ER [facility] Comment:Testing performed by : [facility], [address] [place] [phone] Neutrophil pct 69.0 % C[facility]ER [facility] Comment: Interpretive Data Percent cell count reference ranges are not reported, since discordance with absolute values may lead to misinterpretation of CBC data. Current Interpretive Data was last revised on 2018. Testing performed by: [facility], [address] [place] [phone] Lymphocyte pct 13.4 % [facility] Comment: Interpretive Data Percent cell count reference ranges are not reported, since discordance with absolute values may lead to misinterpretation of CBC data. Current Interpretive Data was last revised on 2018. Testing performed by: [facility], [address] [place] [phone] Monocyte pct 15.3 % [facility] Comment: Interpretive Data Percent cell count reference ranges are not reported, since discordance with absolute values may lead to misinterpretation of CBC data. Current Interpretive Data was last revised on 2018. Testing performed by: [facility], [address] [place] [phone] Eosinophil pct 1.3 % [facility] Comment: Interpretive Data Percent cell count reference ranges are not reported, since discordance with absolute values may lead to misinterpretation of CBC data. Current Interpretive Data was last revised on 2018. Testing performed by: [facility], [address] [place] [phone] Basophil pct 1.0 % [facility] Comment: Interpretive Data Percent cell count reference ranges are not reported, since discordance with absolute values may lead to misinterpretation of CBC data. Current Interpretive Data was last revised on 2018. Testing performed by: [facility], [address] [place] [phone] Blood 09/25/2024 7:43 AM BOOTH OPERATOR 09/25/2024 7:48 AM BOOTH OPERATOR us Stan Meza MD LAB BLOOD ORDERABLES Yolette l Result [facility] Department [place] [address] * (ABNORMAL) CBC with auto differential (09/25/2024 7:43 AM BOOTH OPERATOR) WBC 5.9 3.8 - 9.9 K/cumm Comment:Testing performed by : [facility], [address] [place] [phone] Hgb 9.7(L) 13.0 - 17.5 g/dL CERNER [facility]J Comment:Testing performed by : [facility], [address] [place] [address] Hct 30.5(L) 38.9 - 50.3 % C[facility]ER [facility]J Comment:Testing performed by : [facility], [address] [place] [address] Plt 350 150 - 400 K/cumm C[facility]ER [facility] Comment:Testing performed by : [facility], [address] [place] [address] MPV 6.5(L) 6.8 - 10.4 fL C[facility]ER [facility]J Comment:Testing performed by : [facility], [address] [place] [address] RBC 3.72(L) 4.30 - 5.80 M/cumm [facility]ER [facility] Comment:Testing performed by : [facility], [address] [place] [address] MCV 82.1 81.3 - 96.4 fL CERNER [facility]J Comment:Testing performed by : [facility], [address] [place] [address] MCH 26.1(L) 27.1 - 33.3 pg [facility]ER [facility] Comment:Testing performed by : [facility], [address] [place] [address] MCHC 31.8(L) 32.3 - 35.7 g/dL C[facility]ER [facility] Comment:Testing performed by : [facility], [address] [place] [address] RDW CV 17.1(H) 11.1 - 14.9 % [facility] Comment:Testing performed by : [facility], [address] [place] [address] NRBC abs 0.00 0.00 - 0.01 K/cumm [facility] Comment:Testing performed by : [facility], [address] [place] [address] Blood 09/25/2024 7:43 AM BOOTH OPERATOR 09/25/2024 7:48 AM BOOTH OPERATOR us Stan Meza MD LAB BLOOD ORDERABLES Yolette banda Result [facility] Department [place] [address] * (ABNORMAL) Comprehensive metabolic panel (09/25/2024 7:43 AM BOOTH OPERATOR) Sodium 135 135 - 145 mmol/L Potassium, pl 4.2 3.3 - 4.9 mmol/L [facility] Chloride 98 97 - 110 mmol/L [facility] CO2 30 22 - 32 mmol/L [facility] Anion gap 7 2 - 15 mmol/L [facility] BUN 5(L) 6 - 25 mg/dL [facility] Creatinine 0.73(L) 0.80 - 1.30 mg/dL [facility] Glucose 99 70 - 199 mg/dL [facility] [...] Calcium 9.3 8.5 - 10.3 mg/dL [facility] Bilirubin, total 0.2 0.1 - 1.2 mg/dL [facility] Protein, pl 6.6 6.5 - 8.5 g/dL [facility] Albumin 3.3(L) 3.5 - 5.0 g/dL [facility] Alk phos 172(H) 40 - 130 Units/L [facility] ALT 18 7 - 55 Units/L [facility] AST 17 10 - 50 Units/L [facility] Blood 09/25/2024 7:43 AM BOOTH OPERATOR 09/25/2024 7:51 AM BOOTH OPERATOR us Stan Meza MD LAB BLOOD ORDERABLES Yolette l Result Performing Organization Address City/[facility]/ZIP Co de Phone Number [facility] Department [place] [address] * CT Body Outside Reference (09/17/2024 11:19 AM BOOTH OPERATOR) Impressions RAD_PACS_[facility] - 09/17/2024 11:19 AM BOOTH OPERATOR These images are for Reference purposes only and have not been reviewed by [facility]. There will be no report generated by a [facility] Radiologist. Narrative RAD_PACS_[facility] - 09/17/2024 11:19 AM BOOTH OPERATOR EXAMINATION: Images For Reference Purposes Only us Stan Meza MD IMG CT PROCEDURES Final R esult Performing Organization Address City/[facility] Co de Phone Number [facility] from Last 3 Months Insurance [facility] Care Teams Dewaterer Operator Relationship Specialty Start Date End Date Matthew Mccabe MD [address] [place] [address] PCP - General Family Medicine 05/13/24 Stan Meza MD [address] [facility], [address] [place] [address] Medical Oncologist/Special Warfare Combatant Crewman Medical Oncology 06/28/24
--- OUTSIDE RECORDS SUMMARY | 2024-12-12 23:44 | XMS_ITS | Encounter Summary ---
Author Organization [facility] Address [address] [place] [address] Care Team Providers Care Charge Auditor Name Role Phone Monica Tellez COMMERCIAL REAL ESTATE SALES MANAGER-FURNACE MECHANIC HELPER Primary Care Provi cristobal Ian Pollock MD Primary Care Provider [phone] Ian Pollock MD Primary Care Provider [phone] Ian Pollock MD Primary Care Provider [phone] Ian Pollock MD Primary Care Provider [phone] Ian Pollock MD Primary Care Provider [phone] Katina Casiano DO Unavailable [phone] Xavi ACOSTA MD, Fred R Primary Care Provider + Katina Casiano DO Unavailable [phone] Tracey Ang PA Unavailable [phone] Belkis Angel COMMERCIAL REAL ESTATE SALES MANAGER-FURNACE MECHANIC HELPER Primary Care Provider + Natalie Baum Primary Care Provider [phone] Reason for Visit * Reason Onset Date Comments Results 10/25/2019 Encounter Details Date Type Department Care Team (Late st Contact Info) Description 10/25/2019 Telephone [facility] [address] [address] Monica Tellez COMMERCIAL REAL ESTATE SALES MANAGER-FURNACE MECHANIC HELPER [address] [place] [address] Results Social History Tobacco Use Types Packs/Day [...] Janice Conn RN - 10/31/2019 12:18 PM TOOL REPAIRER BENCH Pt calling again stating that [facility]ash[facility] Rosalinda had sent him for a Cardiac Ultrasound. This TNs. Found HCTTE 2D w/Con Doppler/color CMPT Done 10/25/2019, in chart under Cardiac tab, Faxed to [facility]. Pt request callback: [phone]. Pt seems very nervous about his results. REPAIRER BENCH * Telephone Encounter - Monica Tellez APRN-CNP - 10/25/2019 1:56 PM TOOL REPAIRER BENCH Please find out what ultrasound he had. Have not ultrasound results. Who would have ordered this and where?? [facility] D[facility]az REPAIRER BENCH * Telephone Encounter - Maria Isabel William RN - 10/25/2019 1:47 PM CST Patient nervous about ultrasound result Please call [phone] REPAIRER BENCH documented in this encounter Plan of Treatment [...] on filedocumented in this encounter Care Teams Charge Auditor Relationship Specialty Start Date End Date Monica Tellez APRN-FURNACE MECHANIC HELPER PCP - General 07/03/19 11/13/19 Ian Pollock MD PCP - General 11/14/19 12/12/19 Ian Pollock MD PCP - General 12/13/19 05/25/20 Ian Pollock MD PCP - General 05/26/20 06/15/20 Ian Pollock MD [address] [facility] [place] [address] PCP - General 07/31/20 08/20/20 Ian Pollock MD [address] [facility] OF [facility] [place] [address] PCP - General 08/21/20 05/29/23 Jameel Hurley III, MD [address] [place] [address] PCP - General Internal Medicine 06/05/23 08/28/23 Belkis Angel, COMMERCIAL REAL ESTATE SALES MANAGER-FURNACE MECHANIC HELPER [address] [place] [address] PCP - General Nurse Practitioner 08/29/23 05/05/24 Natalie Baum [address] [place] [address] PCP - General 05/06/24 Katina Casiano DO [address] DIV OF GEN INTERNAL MEDICINE [place], [place] Resident - PCP Internal Medicine 08/10/22 05/29/23 Katina Casiano DO [address] DIV OF GEN INTERNAL MEDICINE [place], [place] Hospitalist 06/05/23 Tracey Ang PA [address] [facility] [address] [place] [address] Physician Plant Science Professor 08/15/23 documented as of this encounter
--- OUTSIDE RECORDS SUMMARY | 2024-12-12 23:44 | XMS_ITS | Encounter Summary ---
Author Organization [facility] Address [address] [place] [address] Phone Care Team Providers Care Data Operations Leader Name Role Phone Matthew Mccabe MD Primary Care Prov ider Stan Meza MD Unavailable [phone] Encounter Details Date Type Department Care Team (Late st Contact Info) Description 12/12/2024 Orders Only [facility] [address] [facility] Floor 5 [place] [address] Sasha Hernandes RN Hypokalemia (Primary [...] on file Legal Sex Male 6:04 PM STONE CRUSHER OPERATOR Gender Identity Not on file Sexual [...] 12/12/2024 documented in this encounter Care Teams Data Operations Leader Relationship Specialty Start Date End Date Matthew Mccabe MD [address] [place] [address] PCP - General Family Medicine 05/13/24 Stan Meza MD [address] [facility] MED[facility] ON[facility], [address] [place] [address] Medical Oncologist/Beader Tender Medical Oncology 06/28/24 documented as of this encounter
--- OUTSIDE RECORDS SUMMARY | 2024-12-12 23:44 | XMS_ITS | Encounter Summary ---
Author Organization [facility] Address [address] [place] [address] Care Team Providers Care Marketing Operations Manager Name Role Phone Ian Pollock MD Primary Care Provider [phone] Katina Casiano DO Unavailable [phone] Xavi ACOSTA MD, Jameel Gaviria Primary Care Provider + Katina Casiano DO Unavailable [phone] Tracey Ang PA Unavailable [phone] Belkis Angel VMWARE ENGINEER-TECHNICAL ARCHITECT Primary Care Provider + Natalie Baum Primary Care Provider [phone] Reason for Visit * Reason Onset Date Comments Cardiac Rehab 02/23/2022 Encounter Details Date Type Department Care Team (Late st Contact Info) Description 02/23/2022 Telephone [facility] [address] [place] [address] Rama Lagos, grease man Social History Tobacco Use Types Packs/Day Years [...] filedocumented in this encounter Care Teams Marketing Operations Manager Relationship Specialty Start Date End Date Ian Pollock MD [address] [facility] [address] DIV OF [facility] [place] [address] PCP - General 08/21/20 05/29/23 Jameel Hurley III, MD [address] [facility] [address] DIV OF [facility] [place] [address] PCP - General Internal Medicine 06/05/23 08/28/23 Belkis Angel, VMWARE ENGINEER-TECHNICAL ARCHITECT [address] [facility] 2nd [place] [address] PCP - General Nurse Practitioner 08/29/23 05/05/24 Natalie Baum [address] [place] [address] PCP - General 05/06/24 Katina Casiano DO [address] [facility] [address] DIV OF [facility] INTERNAL MEDICINE [place], [place] Resident - PCP Internal Medicine 08/10/22 05/29/23 Katina Casiano DO [address] [facility] [address] DIV OF [facility] INTERNAL MEDICINE [place], [place] Hospitalist 06/05/23 Tracey Ang PA [address] [facility] [address] [place] [address] Physician Materials Planning Manager 08/15/23 documented as of this encounter
--- OUTSIDE RECORDS SUMMARY | 2024-12-12 23:44 | XMS_ITS | Encounter Summary ---
Author Organization [facility] Address [address] [place] [address] Care Team Providers Care Smoking Pipe Liner Name Role Phone Ian Pollock MD Primary Care Provider Ian Pollock MD Primary Care Provider [phone] Ian Pollock MD Primary Care Provider [phone] Ian Pollock MD Primary Care Provider [phone] Katina Casiano DO Unavailable [phone] Xavi ACOSTA MD, Fred R Primary Care Provider + Katina Casiano DO Unavailable [phone] Tracey Ang PA Unavailable [phone] Belkis Angel SANITATION TRUCK CLEANER-GROUND SUPPORT EQUIPMENT ASSEMBLER Primary Care Provider + Natalie Baum Primary Care Provider [phone] Reason for Visit * Reason Onset Date Comments Referral 12/13/2019 Encounter Details Date Type Department Care Team (Late st Contact Info) Description 12/13/2019 Telephone [facility] [address] [place] [address] Monica Tellez, SANITATION TRUCK CLEANER-GROUND SUPPORT EQUIPMENT ASSEMBLER [address] [place] [address] Referral Social History Tobacco Use [...] Janice Conn RN - 12/19/2019 8:51 AM PLANT OPERATIONS WORKER Was able to speak with patient regarding his directive to call his insurance company for them to give him a listing of the Cardiologists in [place], and also tell him that he would be given to another PCP because Dr. Pollock will be going to very part-time in March, but patient apprised this TNs thathe had called for a more current appointment, and is to see Dr. Pollock today. T OPERATIONS WORKER * Telephone Encounter - Monica Tellez APRN-CNP - 12/16/2019 4:30 PM PLANT OPERATIONS WORKER Do not know any low pressure kettle operator [place]. He will need to call his insurance company for list of [place] low pressure kettle operator. His appt was to be changed from Dr Pollock to a resident since Dr Pollock will be going to very partner integration planner in March and should not have new patients. [facility] Díaz T OPERATIONS WORKER * Telephone Encounter - Janice Conn RN - 12/13/2019 10:45 AM PLANT OPERATIONS WORKER Routing message to Dr Pollock T OPERATIONS WORKER * Telephone Encounter - Meenu Hidalgo - 12/13/2019 10:36 AM CST PT is calling and wanting to be referred to a low pressure kettle operator on the [place] side. PT stats it wouldbe more convenient and easier for the med cab. PT CBN:[phone] T OPERATIONS WORKER documented in this encounter Plan of [...] on filedocumented in this encounter Care Teams Smoking Pipe Liner Relationship Specialty Start Date End Date Ian Pollock MD PCP - General 12/13/19 05/25/20 Ian Pollock MD PCP - General 05/26/20 06/15/20 Ian Pollock MD [address] DIV OF [facility] [place] [address] PCP - General 07/31/20 08/20/20 Ian Pollock MD [address] DIV OF [facility] [place] [address] PCP - General 08/21/20 05/29/23 Jameel Hurley III, MD [address] [place] [address] PCP - General Internal Medicine 06/05/23 08/28/23 Belkis Angel, SANITATION TRUCK CLEANER-GROUND SUPPORT EQUIPMENT ASSEMBLER [address] [place] [address] PCP - General Nurse Practitioner 08/29/23 05/05/24 Natalie Baum [address] [place] [address] PCP - General 05/06/24 Katina Casiano DO [address] DIV OF GEN INTERNAL MEDICINE [place], [place] Resident - PCP Internal Medicine 08/10/22 05/29/23 Katina Casiano DO [address] DIV OF [facility] INTERNAL MEDICINE [place], [place] Hospitalist 06/05/23 Tracey Ang PA [address] [facility] [address] [place] [address] Physician Bench Machine Operator 08/15/23 documented as of this encounter
--- OUTSIDE RECORDS SUMMARY | 2024-12-12 23:44 | XMS_ITS | Clinical Summary ---
Author Organization [facility] Address [address], [facility] [address] [place] [address] Phone Care Team Providers Care Hogshead Press Operator Name Role Phone Patito Randalli Israel DOLL WIG MAKER, ENDOSCOPY TECHNICIAN Unavailable Allergies Active Allergy Reactions Criticality Noted [...] Comments Blood Pressure 142/74 11/06/2017 2:41 PM SORTER PRICER Pulse 77 11/06/2017 2:41 PM SORTER PRICER Temperature 36.1 C (97 F) 11/06/2017 2:41 PM SORTER PRICER Respiratory Rate 18 11/06/2017 2:41 PM SORTER PRICER Oxygen Saturation 99% 11/06/2017 8:00 AM SORTER PRICER Inhaled Oxygen Concentration - - Weight 113.4 kg (250 lb) 11/03/2017 6:25 PM SORTER PRICER Height 175.3 cm (5' 9 ) 11/03/2017 6:25 PM SORTER PRICER Body Mass Index 36.92 11/03/2017 6:25 PM SORTER PRICER Plan of Treatment Health Maintenance Due Date [...] CHEST W/O CONTRAST STAT 11/03/2017 11:30 PM SORTER PRICER from Last 3 Months or Most Recently Relevant to Health Maintenance Results * CT CHEST W/O CONTRAST (11/03/2017 11:30 PM SORTER PRICER) Anatomical Region Laterality Modality Chest N/A Computed Tomogra phy 11/04/2017 12:2 4 AM SORTER PRICER Impressions 11/04/2017 12:28 AM SORTER PRICER IMPRESSION: 1. A few nonspecific scattered ground-glass infiltrates in the bilateral upper lobes, which may represent pneumonia. 2. Mild paraseptal emphysema. Automated exposure control was used as a dose optimization technique for this examination. Narrative 11/04/2017 12:28 AM SORTER PRICER EXAMINATION: CT chest without contrast HISTORY: Cough, [...] Recently Relevant to Health Maintenance Insurance MEDICAID [facility] PLAN Advance Directives * Full Code (Latest Code Status on File) Date Activated Date Inactivated Comments 11/04/2017 9:36 AM 11/06/2017 6:27 PM CPR-Full Treat ment: FULL ARREST: Attempt Resuscitation/CPR wit intubation and mechanical ventilation. PRE-ARREST: Use entire range of life support measures to stabilize the patient. Care Teams Hogshead Press Operator Relationship Specialty Start Date End Date Montserrat Randall APRN, ENDOSCOPY TECHNICIAN Nurse Practitioner Advanced Practice Nurse 10/21/16
--- OUTSIDE RECORDS SUMMARY | 2024-12-12 23:44 | XMS_ITS ---
Author Organization [facility] Address [address] [place] [address] Care Team Providers Care Acid Remover Name Role Phone Matthew Mccabe MD Primary Care Prov ider Stan Meza MD Unavailable [phone] Active Problems Problem Noted Date Diagnosed Date [...]
--- OUTSIDE RECORDS SUMMARY | 2024-12-12 23:44 | XMS_ITS | Encounter Summary ---
Author Organization [facility] Address [address] [place] [address] Care Team Providers Care Instrumentation Supervisor Name Role Phone Matthew Mccabe MD Primary Care Prov ider Stan Meza MD Unavailable [phone] Reason for Visit * Episode Based Medications (Routine) - Authorized Specialty Diagnoses / Procedures Referred By Contac t Referred To Contact Diagnoses Primary cancer of left lower lobe of lung (HCC) Hypokalemia Stan Meza MD [address] [place] [address] Phone: tel: fax: [facility] [address] [facility] [address] [place] [address] Referral ID Status Reason Start Date Expiration Date V isits Requested Visits Authorized [id number] Authorized 08/20/2024 02/06/2025 1 50 Encounter Details Date Type Department Care Team (Late st Contact Info) Description 09/25/2024 9:00 AM ASSOCIATE PROGRAMMER Infusion [facility] [address] [facility] [address] [place] [address] Primary cancer of left lower lobe of [...] file Legal Sex Male 6:04 PM ASSOCIATE PROGRAMMER Gender Identity Not on file Sexual Orientation [...] (215 lb 6.4 oz) Current BMI: 32.70 [place] body weight: 65.9 kg (145 lb 5.8 oz) Adjusted ideal body weight: 76.3 kg (168 lb 4.1 oz) Estimated Energy Needs: Based on: 92 kg Calories 2962-1132 kcal/day 20-25 kcal/kg Protein 92-110 g/day 1.0-1.2 g/kg Fluid 3555-2083 ml/day or Per MD 1 ml/kcal or [...] stimulants. RD to follow. Diet recall: some monegasque food, one Ensure Intervention: Patient with poor [...] Joann Olivares MS, RD, LD Clinical Dietitian [phone] CIATE PROGRAMMER documented in this encounter Nursing Notes * Anusha Jimenez, ALYX - 09/25/2024 9:00 AM CST Oncology Nursing Note [facility] Josafat [...] Ambulatory Accompanied by: Self Discharged To: Home CIATE PROGRAMMER documented in this encounter Plan of [...] lung (HCC) New Bag 09/25/2024 10:14 AM ASSOCIATE PROGRAMMER 170 mg 68 mL/hr aprepitant (CINVANTI) injection 130 mg 130 mg, intravenous, at 540 mL/hr, Administer over 2 Minutes, Once, On Mon09/25/24 at 0915, For 1 dose, IV over 2 minutes; avoid shaking.Indications:Primary cancer of left lower lobe of lung (HCC) Given 09/25/2024 8:55 AM ASSOCIATE PROGRAMMER 130 mg 540 mL/hr CARBOplatin (PARAPLATIN) 600 mg in sodium chloride 0.9% 250 mL IVPB (By AUC) 600 mg (Target AUC = 4), intravenous, at 670 mL/hr, Administer over 30 Minutes, Once, On Mon09/25/24 at 1045, For 1 dose, IrritantIndications:Primary cancer of left lower lobe of lung (HCC) New Bag 09/25/2024 10:57 AM ASSOCIATE PROGRAMMER 600 mg 670 mL/hr dexAMETHasone (DECADRON) preservative free solution 10 mg 10 mg, intravenous, Administer over 2 Minutes, Once, On Mon09/25/24 at 0915, For 1 doseIndications:Primary cancer of left lower lobe of lung (HCC) Given 09/25/2024 8:55 AM ASSOCIATE PROGRAMMER 10 mg palonosetron (ALOXI) injection 250 mcg 250 mcg (0.25 mg), intravenous, Once, On Mon09/25/24 at 0915, For 1 dose, For IV push, administer over 30 seconds.Indications:Primary cancer of left lower lobe of lung (HCC) Given 09/25/2024 8:55 AM ASSOCIATE PROGRAMMER 250 mcg pembrolizumab (KEYTRUDA) 200 mg in sodium chloride 0.9% 100 mL 200 mg, intravenous, at 236 mL/hr, Administer over 30 Minutes, Once, On Mon09/25/24 at 0945, For 1 dose, Use 0.2-5 micron filterIndications:Primary cancer of left lower lobe of lung (HCC) New Bag 09/25/2024 9:36 AM ASSOCIATE PROGRAMMER 200 mg 236 mL/hr documented in this encounter Orders Nursing Count Last Ordered Date First Orde red Date ONCBCN NURSING COMMUNICATION [id number] 1 1 11/25/2023 ONCBCN TREATMENT PARAMETERS 18 1 09/25/2024 Appointment Requests Count Last Ordered Date Fi rst Ordered Date ONCBCN RETURN CHEMO 3HRS 1 09/25/2024 documented in this encounter Care Teams Instrumentation Supervisor Relationship Specialty Start Date End Date Matthew Mccabe MD [address] [place] [address] PCP - General Family Medicine 05/13/24 Stan Meza MD [address] [facility] [place] [address] Medical Oncologist/Salesperson Furniture Medical Oncology 06/28/24 documented as of this encounter
--- OUTSIDE RECORDS SUMMARY | 2024-12-12 23:44 | XMS_ITS | Encounter Summary ---
Author Organization [facility] Address [address] [facility] [place] [address] Care Team Providers Care Asset Management Coordinator Name Role Phone Monica Tellez CERTIFIED REGISTERED NURSE ANESTHETIST-APPLICATION SUPPORT TECHNICIAN Primary Care Provi cristobal Ian Pollock MD Primary Care Provider [phone] Ian Pollock MD Primary Care Provider [phone] Ian Pollock MD Primary Care Provider [phone] Ian Pollock MD Primary Care Provider [phone] Ian Pollock MD Primary Care Provider [phone] Katina Casiano DO Unavailable [phone] Xavi ACOSTA MD, Fred R Primary Care Provider + Katina Casiano DO Unavailable [phone] Tracey Ang PA Unavailable [phone] Belkis Angel CERTIFIED REGISTERED NURSE ANESTHETIST-APPLICATION SUPPORT TECHNICIAN Primary Care Provider + Natalie Baum Primary Care Provider [phone] Reason for Visit * Reason Onset Date Comments Forms 07/12/2019 [place] Encounter Details Date Type Department Care Team (Late st Contact Info) Description 07/12/2019 Telephone [facility] [address] [address] Monica Tellez APRN-APPLICATION SUPPORT TECHNICIAN [address] [id number] Forms ([place] transportation) Social History Tobacco Use Types Packs/Day [...] on forms for transportation. Please advise. CB [phone] * Telephone Encounter - Shari Silvestre, RN - 07/12/2019 1:11 PM CDT [facility] transportation form on your shelf. * Telephone Encounter - Hawa Allen - 07/12/2019 9:34 AM CDT Pt calling in to inform office that paperwork is on it's way from [place] concerning Medicare rides so pt can get transportation to and from [facility] appts. CB# [phone] Routed to [facility] Nurse Communication for further review documented in this encounter Plan of Treatment Not on file documented as of this encounter Visit Diagnoses Not on filedocumented in this encounter Care Teams Asset Management Coordinator Relationship Specialty Start Date End Date Monica Tellez CERTIFIED REGISTERED NURSE ANESTHETIST-APPLICATION SUPPORT TECHNICIAN PCP - General 07/03/19 11/13/19 Ian Pollock MD PCP - General 11/14/19 12/12/19 Ian Pollock MD PCP - General 12/13/19 05/25/20 Ian Pollock MD PCP - General 05/26/20 06/15/20 Ian Pollock MD [address] [facility] [address] [facility] [address] PCP - General 07/31/20 08/20/20 Ian Pollock MD [address] [facility] [address] PCP - General 08/21/20 05/29/23 Jameel Hurley III, MD [address] [facility] [address] PCP - General Internal Medicine 06/05/23 08/28/23 Belkis Angel, CERTIFIED REGISTERED NURSE ANESTHETIST-APPLICATION SUPPORT TECHNICIAN [address] [facility] [address] [place] [address] PCP - General Nurse Practitioner 08/29/23 05/05/24 Natalie Baum [address] [place] [address] PCP - General 05/06/24 Katina Casiano DO [address] [facility] [address] DIV OF GEN INTERNAL MEDICINE [place], [place] Resident - PCP Internal Medicine 08/10/22 05/29/23 Katina Casiano DO [address] [facility] [address] DIV OF GEN INTERNAL MEDICINE [place], [place] Hospitalist 06/05/23 Tracey Ang PA [address] [facility] [address] [place] [address] Physician Machine Stone Polisher 08/15/23 documented as of this encounter
--- OUTSIDE RECORDS SUMMARY | 2024-12-12 23:44 | XMS_ITS ---
Author Organization [facility] Address [address] [place] [address] Care Team Providers Care Sushi Chef Name Role Phone Radha Joseph Primary Care Provider [phone] Medications Medication SIG (Take, Route, Frequency, Duration) [...] Male Encounters Encounter Location Date Provider Diagnosis [facility] [address] [place] [address] 11/11/2024 Radha Joseph Anxiety F41.9 and Bipolar [...] Josafat CALVO FDOB: [birth year] (64 yo M)Acc No.[id number]:11/11/2024 Patient: Josafat GARCIA :1960 A ge:64 Y S ex:Male Address:[address] [facility], [address], [address] * Refills Refill hydrOXYzine Pamoate Capsule, 25 [...] Generated for Liudmila gray/Katey/August on: 0 12/12/2024 11:44 PM INTERIOR DESIGN CONSULTANT
--- OUTSIDE RECORDS SUMMARY | 2024-12-12 23:44 | XMS_ITS | Encounter Summary ---
Author Organization [facility] Address [address] [place] [address] Care Team Providers Care Certified Wellness Program Coordinator Name Role Phone Monica Tellez BOND UNDERWRITER-PACKAGING TECHNICIAN Primary Care Provi cristobal Ian Pollock MD Primary Care Provider [phone] Ian Pollock MD Primary Care Provider [phone] Ian Pollock MD Primary Care Provider [phone] Ian Pollock MD Primary Care Provider [phone] Ian Pollock MD Primary Care Provider [phone] Katina Casiano DO Unavailable [phone] Xavi ACOSTA MD, Fred R Primary Care Provider + Katina Casiano DO Unavailable [phone] Tracey Ang PA Unavailable [phone] Belkis Angel BOND UNDERWRITER-PACKAGING TECHNICIAN Primary Care Provider + Natalie Baum Primary Care Provider [phone] Reason for Visit * Reason Onset Date Comments General 11/12/2019 Encounter Details Date Type Department Care Team (Late st Contact Info) Description 11/12/2019 Telephone [facility] [address] [place] [address] Monica Tellez BOND UNDERWRITER-PACKAGING TECHNICIAN [address] [place] [address] General Social History Tobacco Use Types Packs/Day [...] Monica Tellez APRN-CNP - 11/12/2019 2:57 PM PULP DRIER FIRER Patient can be scheduled with other provider if he wants. He was upset that I told him to ask his pulmonary doctor to order low dose CT since pulmonary was the one who usually ordered this. MARISOL Díaz DRIER FIRER * Telephone Encounter - Nadeem Hancock - 11/12/2019 1:07 PM CST Pt called to request to be released from the provider's care. Caller stated that the provider has done a couple of things to rub him the wrong way, and he would like another provider. Pt provided call back number [phone] Message routed to provider for review and assistance DRIER FIRER documented in this encounter Plan of Treatment [...] filedocumented in this encounter Care Teams Certified Wellness Program Coordinator Relationship Specialty Start Date End Date Monica Tellez, BOND UNDERWRITER-PACKAGING TECHNICIAN PCP - General 07/03/19 11/13/19 Ian Pollock MD PCP - General 11/14/19 12/12/19 Ian Pollock MD PCP - General 12/13/19 05/25/20 Ian Pollock MD PCP - General 05/26/20 06/15/20 Ian Pollock MD [address] [facility] OF [facility] [place] [address] PCP - General 07/31/20 08/20/20 Ian Pollock MD [address] DIV [place] [address] PCP - General 08/21/20 05/29/23 Jameel Hurley III, MD [address] [facility] [place] [address] PCP - General Internal Medicine 06/05/23 08/28/23 Belkis Angel, BOND UNDERWRITER-PACKAGING TECHNICIAN [address] [facility] 2nd [place] [address] PCP - General Nurse Practitioner 08/29/23 05/05/24 Natalie Baum [address] [place] [address] PCP - General 05/06/24 Katina Casiano DO [address] [facility] [address] DIV OF GEN INTERNAL MEDICINE [place], [place] Resident - PCP Internal Medicine 08/10/22 05/29/23 Katina Casiano DO [address] [facility] [address] DIV OF GEN INTERNAL MEDICINE [place], [place] Hospitalist 06/05/23 Tracey Ang PA [address] [facility] [address] [place] [address] Physician Scrapper 08/15/23 documented as of this encounter
[2024-12-13] MEDS: ONDANSETRON INJ 4 MG/2 ML VIAL IV PUSH (00:15)
[2024-12-13 00:38] LABS: NT Pro B Type Natriuretic Pept 1750 pg/mL (19.9-100); Troponin I < 0.012 ng/mL (0.000-0.034)
[2024-12-13] MEDS: IPRATROPIUM BR 0.02% INH SOLN 0.5 MG/2.5 ML VIAL 1.5 MG INHALATION (01:04)
[2024-12-13] MEDS: LEVALBUTEROL NEB 1.25 MG/3 ML 2.5 MG INHALATION (01:04)
[2024-12-13 01:05] VITALS: PULSE 106; RESP 20
[2024-12-13 01:05] LABS: Influenza A QL RT-PCR Negative (Negative); Influenza B QL RT-PCR Negative (Negative); RSV RNA, RT-PCR Negative (Negative); SARS-CoV-2 RNA PCR Negative (Negative)
--- NOTE | 2024-12-13 01:14 | ED_ITS ---
HPI - SOB/Dyspnea General Chief Complaint: Shortness of Breath/Dyspnea Stated Complaint: sob Time Seen by Provider: 12/12/24 23:29 Source: patient Mode of arrival: EMS Limitations: no limitations History of Present Illness HPI Narrative: Patient is a 64-year-old male, with past medical history of asthma, pAFIB on eliquis, and non-small cell L lung cancer, who presents to the ED via EMS with report of shortness of breath. Patient reports he was at [facility] today to receive his [id number] chemotherapy treatment, but began having SOB. He was sent to the ED at [facility] and received nebulizer treatments and was later discharged home. Patient states upon returning home, he began having increased SOB. Contacted EMS to bring patient back here. Patient does report some cough recently, intermittent nausea. Denies fevers. Denies chest pain. Denies lower extremity pain or swelling. Oncologist is Dr. Meza with [facility] [employer] Home Medications ?Medication ?Instructions ?Recorded ?Confirmed ?Last Taken ?Type latanoprost 0.005 % eye drops 1 drp ophthalmic (eye) DAILY 05/05/20 09/13/24 Unknown History alfuzosin 10 mg tablet,extended 10 mg PO DAILY 12/12/23 09/13/24 Unknown History release 24 hr aspirin 81 mg tablet,delayed 81 mg PO DAILY 12/12/23 09/13/24 Unknown History release (Adult Aspirin Regimen) atorvastatin 40 mg tablet 40 mg PO DAILY 12/12/23 09/13/24 Unknown History buspirone 7.5 mg tablet 7.5 mg PO BID 12/12/23 09/13/24 Unknown History carvedilol 12.5 mg tablet 12.5 mg PO Q12H 12/12/23 09/13/24 Unknown History eplerenone 25 mg tablet 25 mg PO DAILY 12/12/23 09/13/24 Unknown History hydroxyzine pamoate 100 mg capsule 100 mg PO Q12H 12/12/23 09/13/24 Unknown History lamotrigine 100 mg tablet 100 mg PO DAILY 12/12/23 09/13/24 Unknown History loratadine 10 mg tablet 10 mg PO DAILY 12/12/23 09/13/24 Unknown History ziprasidone HCl 80 mg capsule 80 mg PO BID 12/12/23 09/13/24 Unknown History fluticasone furoate 27.5 1 spray intranasal DAILY PRN 04/30/24 09/13/24 Unknown History mcg/actuation nasal Congestion spray,suspension tadalafil 20 mg tablet 20 mg PO DAILY PRN Erectile 04/30/24 09/13/24 Unknown History Dysfunction acetaminophen 500 mg tablet 500 mg PO Q6H PRN Pain (Scale 09/13/24 09/13/24 Unknown History Score 1-3) morphine 30 mg tablet,extended 30 mg PO Q12H 09/13/24 09/13/24 Unknown History release ondansetron HCl 8 mg tablet 8 mg PO BID PRN Nausea And Vomiting 09/13/24 09/13/24 Unknown History oxycodone 5 mg tablet 10 mg PO Q4H PRN Pain (Scale Score 09/13/24 09/13/24 Unknown History 7-10) Allergies Allergy/AdvReac Type Severity Reaction Status Date / Time lisinopril Allergy Severe ANGIOEDEMA Verified 09/13/24 10:54 Penicillins Allergy Unknown Swelling Verified 09/13/24 10:54 Review of Systems 2 Review of Systems: All systems reviewed & are unremarkable except as noted in HPI. All systems reviewed & are unremarkable except as noted in HPI and below PMFSH Past Medical History Medical History Hyponatremia Mitral regurgitation Systolic dysfunction Diastolic dysfunction (04/2024) PAF (paroxysmal atrial fibrillation) Cardiomyopathy Arthritis Bronchitis Asthma COPD (chronic obstructive pulmonary disease) HTN (hypertension) Glaucoma Surgical History Surgical History History of knee replacement procedure of right knee Family History Family History Father Alcoholism Heart problem Hypertension Sibling Alcoholism Cancer Hypertension Mother Cancer Hypertension Grandparent Diabetes mellitus Heart problem Hypertension Sibling Cancer Hypertension Social History Social History Smoking packs per day: 1 Smoking cigarettes per day: 20.0 Years smoked: 40 Smoking pack-years: 40.00 Smoking status: Current every day smoker Tobacco type: cigarettes Alcohol intake: never Substance use: current Substance use type: marijuana Do You Feel Safe in your Home?: Yes Lack of Transportation: No Lack of Food: Never True Current Housing: I Have Housing Concerned About Future Housing: No Difficulty Paying Gas/Electric Bills: No Difficulty Paying for Meds: No Currently Unemployed: No Education: Associate Degree Difficulty w/ Childcare or Family Care: No Gender identity (if verbalized by the patient): Male Spiritual care concerns: No Exam 2 Narrative: GENERAL: Well appearing, well-nourished, non-toxic, in no acute distress. HEAD: Normocephalic, atraumatic. RESPIRATORY: Airway patent, respirations nonlabored. Coarse lung sounds in bases bilaterally. No rhonchi or wheezing. CARDIOVASCULAR: Regular rate and rhythm without murmurs, rubs, or gallops. ABDOMINAL: Soft, no significant tenderness throughout abdomen, nondistended. Normoactive BS. MUSCULOSKELETAL: Moves all extremities. No gross deformities. SKIN: Warm, dry, normal color. NEURO: A&O X3. Speech clear. Cranial nerves II-XII grossly intact. Steady gait. No ataxic movements. PSYCHIATRIC: Appropriate mood and affect. Normal interaction. Course Vital Signs Vital signs: Vital Signs Pulse Oximetry 100 12/12/24 20:13 Oxygen Delivery Nasal Cannula 12/12/24 20:13 Oxygen Flow Rate 2 12/12/24 20:13 Temperature 98.4 F 12/13/24 03:17 Pulse Rate 95 12/13/24 03:17 Respiratory Rate 22 H 12/13/24 03:17 Blood Pressure 157/106 H 12/13/24 03:17 Pulse Oximetry 100 12/13/24 03:17 Oxygen Delivery Nasal Cannula 12/12/24 20:13 Oxygen Flow Rate 2 12/12/24 20:13 MDM - SOB/Dyspnea MDM Narrative Medical decision making narrative: Patient presented to ED with shortness of breath. Currently undergoing chemotherapy treatment for lung cancer. Was seen at [place] the ED today for similar shortness of breath. Was also recently seen in our ED for COPD exacerbation. EKG with sinus rhythm, no concerning ischemic changes. Troponin is undetectable X2. Patient is denying any chest pain. BNP is very mildly elevated to 1750, though patient does not appear acutely fluid overloaded. Chest x-ray is clear. No evidence of pulmonary edema or focal infiltrate. Viral swabs are negative. Laboratory studies without leukocytosis. H&H is stable. Sodium slightly low 129, though this appears consistent with previous records. Patient does have documented history of hyponatremia. Patient is on Eliquis 5 mg b.i.d., is compliant with this, very low suspicion for PE. Patient was given an hour long DuoNeb. Feeling improved on re-evaluation. Was ambulated throughout the ED in no hypoxia was noted. No hypoxia in the room. Has never required supplemental oxygen. Was initially placed on 2 L by EMS for comfort, but has never been hypoxic throughout ED stay. Feel he is safe for discharge home at this time with close outpatient follow-up. Will give additional short course of steroids for copd exacerbation. Recommended close follow-up with PCP and oncologist for further evaluation and to manage his missed chemotherapy appointment today. Discussed strict return precautions. He agrees with plan. Feels comfortable going home. Discharged in stable condition. Medical Records Attestation: I reviewed the patient's medical records. Lab Data Attestation: I reviewed the patient's lab results. 12/12/24 20:38 12/12/24 20:38 Labs: Lab Results 12/12/24 12/12/24 12/13/24 Range/Units 20:38 23:43 00:10 WBC 5.4 (4.5-10.0) K/mm3 RBC 3.62 L (4.6-6.20) M/mm3 Hgb 10.6 L (14.0-18.0) g/dL Hct 32.6 L (42.0-52.0) % MCV 90.1 (80-100) fl MCH 29.3 (26-34) pg MCHC 32.5 (32-36) g/dl RDW 19.5 H (11.5-14.5) % Plt Count 202 D (150-375) k/mm3 MPV 9.2 (7.4-10.4) fl Immature Gran % (Auto) 0.2 (0-0.5) % Neut % (Auto) 62.5 (45.5-73.1) % Lymph % (Auto) 21.8 (18.3-44.2) % [place] % (Auto) 9.7 H (2.6-8.5) % Eos % (Auto) 5.4 H (0-4.4) % Baso % (Auto) 0.4 (0.2-1.2) % Lymph # (Auto) 1.17 (0.9-3.2) K/mm3 [place] # (Auto) 0.5 (0.1-0.6) K/mm3 Eos # (Auto) 0.3 (0-0.3) K/mm3 Baso # (Auto) 0.0 (0.0-0.1) K/mm3 Abs Immat Gran (auto) 0.01 (0.00-0.031) K/mm3 Absolute Neuts (auto) 3.4 (1.3-6.7) K/mm3 Absolute Nucleated RBC 0.000 (0.0-0.012) K/mm3 Nucleated RBC % 0.0 (0.0-0.2) % Sodium 129 L (137-145) mmol/L Potassium 3.7 (3.4-5.0) mmol/L Chloride 95 L (98-107) mmol/L Carbon Dioxide 28 (22-30) mmol/L Anion Gap 6 (4-12) mmol/L BUN 3 L (9-20) mg/dL Creatinine 0.48 L (0.7-1.3) mg/dL Estim Creat Clear Calc Not Reportable Estimated GFR > 60 (59 - ) Glucose 100 (65-110) mg/dL Calcium 9.6 (8.4-10.2) mg/dL Total Bilirubin 0.5 (0.2-1.3) mg/dL AST 19 (17-59) U/L ALT 16 (6-50) U/L Alkaline Phosphatase 120 (38-126) U/L Troponin I < 0.012 (0.000-0.034) ng/mL NT-Pro-B Natriuret Pep 1750 H (19.9-100) pg/mL Total Protein 7.0 (6.3-8.2) g/dL Albumin 3.9 (3.5-5.1) g/dL Influenza A (RT-PCR) Negative (Negative) Influenza B (RT-PCR) Negative (Negative) RSV (RT-PCR) Negative (Negative) SARS-CoV-2 RNA (RT-PCR) Negative (Negative) 12/13/24 Range/Units 03:06 WBC (4.5-10.0) K/mm3 RBC (4.6-6.20) M/mm3 Hgb (14.0-18.0) g/dL Hct (42.0-52.0) % MCV (80-100) fl MCH (26-34) pg MCHC (32-36) g/dl RDW (11.5-14.5) % Plt Count (150-375) k/mm3 MPV (7.4-10.4) fl Immature Gran % (Auto) (0-0.5) % Neut % (Auto) (45.5-73.1) % Lymph % (Auto) (18.3-44.2) % [place] % (Auto) (2.6-8.5) % Eos % (Auto) (0-4.4) % Baso % (Auto) (0.2-1.2) % Lymph # (Auto) (0.9-3.2) K/mm3 [place] # (Auto) (0.1-0.6) K/mm3 Eos # (Auto) (0-0.3) K/mm3 Baso # (Auto) (0.0-0.1) K/mm3 Abs Immat Gran (auto) (0.00-0.031) K/mm3 Absolute Neuts (auto) (1.3-6.7) K/mm3 Absolute Nucleated RBC (0.0-0.012) K/mm3 Nucleated RBC % (0.0-0.2) % Sodium (137-145) mmol/L Potassium (3.4-5.0) mmol/L Chloride (98-107) mmol/L Carbon Dioxide (22-30) mmol/L Anion Gap (4-12) mmol/L BUN (9-20) mg/dL Creatinine (0.7-1.3) mg/dL Estim Creat Clear Calc Estimated GFR (59 - ) Glucose (65-110) mg/dL Calcium (8.4-10.2) mg/dL Total Bilirubin (0.2-1.3) mg/dL AST (17-59) U/L ALT (6-50) U/L Alkaline Phosphatase (38-126) U/L Troponin I < 0.012 (0.000-0.034) ng/mL NT-Pro-B Natriuret Pep (19.9-100) pg/mL Total Protein (6.3-8.2) g/dL Albumin (3.5-5.1) g/dL Influenza A (RT-PCR) (Negative) Influenza B (RT-PCR) (Negative) RSV (RT-PCR) (Negative) SARS-CoV-2 RNA (RT-PCR) (Negative) Imaging Data Attestation: I personally reviewed and interpreted this imaging study as follows: Radiologist's impression: ITS Impressions Chest X-Ray 12/12/24 20:45 IMPRESSION: No focal infiltrate or effusion. ECG Data EKG #1: Attestation: I personally reviewed and interpreted this ECG as follows: ECG completion date: 12/12/24 ECG completion time: 20:10 EKG Interpretation: normal rate (79), sinus rhythm and no ST changes Discharge Plan Discharge Clinical Impression: Shortness of breath, Acute exacerbation of chronic obstructive pulmonary disease (COPD), Chronic hyponatremia Non-small cell carcinoma of lung Qualifiers: Laterality: left Qualified Code(s): C34.92 - Malignant neoplasm of unspecified part of left bronchus or lung Patient Disposition: Home, Self-Care Condition: Stable Instructions: Antibiotic Form, Asthma (ED), Dyspnea (ED) Additional Instructions: Your workup here was reassuring. Take steroids as prescribed over the next few days. Continue your inhalers and nebulizers as needed for shortness of breath. Follow-up closely with your primary care doctor and and oncologist for further evaluation and to discuss missed chemotherapy appointment. Return to the ED if you experience worsening or severe difficulty breathing, chest pain, unable to keep down food or drink, pain or swelling in legs, fevers, or any other symptoms of concern. Patient Language: Portuguese Prescriptions: New prednisone 50 mg tablet 50 mg PO DAILY Qty: 5 0RF No Action omeprazole 40 mg capsule,delayed release(DR/EC) 40 mg PO DAILY Qty: 90 3RF clotrimazole 10 mg humberto 10 mg mucous membrane TID Qty: 30 0RF albuterol sulfate 90 mcg/actuation HFA aerosol inhaler See Rx Instructions .ROUTE .COMPLEX Qty: 8.5 3RF Dose Instruction: INHALE 1-2 PUFF(S) BY MOUTH EVERY 4 - 6 HOURS NEEDED FOR SHORTNESS OF BREATH OR WHEEZING Rx Instructions: INHALE 1-2 PUFF(S) BY MOUTH EVERY 4 - 6 HOURS NEEDED FOR SHORTNESS OF BREATH OR WHEEZING alfuzosin 10 mg tablet extended release 24 hr 10 mg PO DAILY Rx Instructions: administer after the same meal each day eplerenone 25 mg tablet 25 mg PO DAILY ziprasidone HCl 80 mg capsule 80 mg PO BID Rx Instructions: give with food (meal/snack) carvedilol 12.5 mg tablet 12.5 mg PO Q12H Rx Instructions: must administer with a meal/food buspirone 7.5 mg tablet 7.5 mg PO BID aspirin [Adult Aspirin Regimen] 81 mg tablet,delayed release (DR/EC) 81 mg PO DAILY loratadine 10 mg tablet 10 mg PO DAILY atorvastatin 40 mg tablet 40 mg PO DAILY lamotrigine 100 mg tablet 100 mg PO DAILY hydroxyzine pamoate 100 mg capsule 100 mg PO Q12H fluticasone furoate 27.5 mcg/actuation spray,suspension 1 spray intranasal DAILY PRN (Reason: Congestion) Rx Instructions: into each nostril tadalafil 20 mg tablet 20 mg PO DAILY PRN (Reason: Erectile Dysfunction) nicotine 14 mg/24 hr patch 24 hour 1 patch transdermal DAILY Qty: 28 2RF Eliquis 5 mg tablet 5 mg PO BID Qty: 60 5RF latanoprost 0.005 % Drops 1 drp OPHTHALMIC (EYE) DAILY ondansetron 4 mg tablet,disintegrating 4 mg PO Q4H 0 Days Qty: 10 0RF Rx Instructions: 1st dose 1-2 hr before radiation prednisone 20 mg tablet 40 mg PO DAILY 5 Days Qty: 10 0RF ondansetron HCl 8 mg tablet 8 mg PO BID PRN (Reason: Nausea And Vomiting) morphine 30 mg tablet extended release 30 mg PO Q12H acetaminophen 500 mg Tablet 500 mg PO Q6H PRN (Reason: Pain (Scale Score 1-3)) oxycodone 5 mg tablet 10 mg PO Q4H PRN (Reason: Pain (Scale Score 7-10)) cefdinir 300 mg capsule 300 mg PO Q12H 7 Days Qty: 14 0RF doxycycline hyclate 100 mg tablet,delayed release (DR/EC) 100 mg PO BID 7 Days Qty: 14 0RF budesonide-formoterol [Symbicort] 160-4.5 mcg/actuation HFA aerosol inhaler See Rx Instructions .ROUTE .COMPLEX Qty: 10.2 5RF Dose Instruction: INHALE 2 PUFFS BY MOUTH TWICE A DAY Rx Instructions: INHALE 2 PUFFS BY MOUTH TWICE A DAY. RINSE AND SPIT losartan 50 mg tablet See Rx Instructions .ROUTE .COMPLEX Qty: 30 5RF Dose Instruction: TAKE 1 TABLET BY MOUTH EVERY DAY Rx Instructions: TAKE 1 TABLET BY MOUTH EVERY DAY ipratropium-albuterol 0.5 mg-3 mg(2.5 mg base)/3 mL solution for nebulization 3 ml inhalation QID PRN (Reason: shortness of breath or wheezing) Qty: 360 3RF Follow-up/Referrals: Matthew Mccabe MD [Primary Care Provider] - Time of Disposition: 03:27
[2024-12-13 02:05] VITALS: PULSE 95; RESP 20
[2024-12-13 03:17] VITALS: BP 157/106; PULSE 95; RESP 22; TEMP 36.9; O2SAT 100
[2024-12-13 03:31] LABS: Troponin I < 0.012 ng/mL (0.000-0.034)
== END 2024-12-13 04:02 | disposition home or self-care (01) ==
PROVIDERS: Emergency Medicine; Emergency Provider Physician Assistant; PCP Family Medicine Adolescent Medicine
DX: J44.1 Chronic obstructive pulmonary disease with (acute) exacerbation (principal); E87.1 Hypo-osmolality and hyponatremia; C34.92 Malignant neoplasm of unspecified part of left bronchus or lung; Z20.822 Contact with and (suspected) exposure to COVID-19; I48.0 Paroxysmal atrial fibrillation; I11.9 Hypertensive heart disease without heart failure; I42.9 Cardiomyopathy, unspecified; I34.0 Nonrheumatic mitral (valve) insufficiency; H40.9 Unspecified glaucoma; M19.90 Unspecified osteoarthritis, unspecified site; F17.210 Nicotine dependence, cigarettes, uncomplicated; Z96.651 Presence of right artificial knee joint; Z79.01 Long term (current) use of anticoagulants; Z79.60 Long term (current) use of unspecified immunomodulators and immunosuppressants; R94.31 Abnormal electrocardiogram [ECG] [EKG]
CPT/HCPCS: 36415; 71046; 80053; 83880; 84484; 85025; 87637; 93005; 96374; 99284; J2405

== ENCOUNTER 2025-01-19 06:43 | Emergency (ER) | payer OTHER, SELFPAY ==
--- NOTE | ~2025-01-19 | XR_ITS ---
CHEST RADIOGRAPH, PA AND LATERAL CLINICAL HISTORY: SOB . Personal history of lung cancer COMPARISON: 12/12/2024 TECHNIQUE: PA and lateral views of the chest. FINDINGS The cardiomediastinal silhouette is unremarkable. Volume loss within the left hemithorax, unchanged from prior with nodular scarring, possibly represen ting patient's primary malignancy. Increased interstitial markings adjacent to the right atrium, projecting over the right middle lobe o n lateral view, which may represent either disease progression versus an early infiltrate. The remainder of the lungs are clear. Interval increase in the air opacification of the colon within the left upper quadrant, when compared with previous examination performed 10 days earlier. IMPRESSION: Findings projecting over the right middle lobe which may represent either an early infiltrate versus disease progression (less likely, as bony lesions are improving and left upper lobe lesions are decre ased in size) for which clinical correlation is needed. Interval increase in the air opacification of the colon within the left upper quadrant as compared wi th previous examination performed 10 days earlier. Reviewed, dictated and finalized at location A. IMPRESSION: Findings projecting over the right middle lobe which may represent either an ea rly infiltrate versus disease progression (less likely, as bony lesions are imp roving and left upper lobe lesions are decreased in size) for which clinical co rrelation is needed. Interval increase in the air opacification of the colon within the left upper q uadrant as compared with previous examination performed 10 days earlier.
[2025-01-19 06:44] VITALS: BP 147/95; PULSE 86; RESP 19; TEMP 36.2; O2SAT 94
--- NOTE | 2025-01-19 06:49 | ECG_ITS ---
Test Date: 2025-01-19 06:56:52 Measurements Intervals [place] Rate: 80 P: 35 NE: 152 QRS: -5 QRSD: 100 T: 46 QT: 394 QTc: 455 Interpretive Statements SINUS RHYTHM Compared to ECG 12/12/2024 20:10:56 No significant changes Electronically Signed On 01-19-2025 13:33:58 CDT by Breanna Olivares M.D.
[2025-01-19 06:50] VITALS: PULSE 89; O2SAT 99
[2025-01-19 06:51] VITALS: O2SAT 100
[2025-01-19 07:09] LABS: Basophils Percent Auto 1.3 % (0.2-1.2); Eosinophils Absolute Auto 0.2 K/mm3 (0-0.3); Eosinophils Percent Auto 6.3 % (0-4.4); Hematocrit 31.7 % (42.0-52.0); Hemoglobin 10.5 g/dL (14.0-18.0); Mean Corpuscular HGB Conc 33.1 g/dl (32-36); Mean Corpuscular Hemoglobin 29.4 pg (26-34); Mean Corpuscular Volume 88.8 fl (80-100); Mean Platelet Volume 9.3 fl (7.4-10.4); Monocytes Absolute Auto 0.4 K/mm3 (0.1-0.6); Monocytes Percent Auto 13.7 % (2.6-8.5); Neutrophils Absolute Auto 1.9 K/mm3 (1.3-6.7); Neutrophils Percent Auto 59.7 % (45.5-73.1); Platelet Count Result 179 k/mm3 (150-375); Red Blood Count 3.57 M/mm3 (4.6-6.20); White Blood Count 3.2 K/mm3 (4.5-10.0)
--- NOTE | 2025-01-19 07:13 | ED_ITS ---
HPI - SOB/Dyspnea General Chief Complaint: Shortness of Breath/Dyspnea Stated Complaint: SOB Time Seen by Provider: 01/19/25 07:10 Source: patient Mode of arrival: ambulatory Limitations: no limitations History of Present Illness HPI Narrative: 64 years old male workup at 4:00 a.m. in the morning and noticed that he have more shortness of breath than usual call 911. History of stage IV lung cancer, last chemotherapy 2 weeks ago, last time was seen by his oncologist at [facility] 2 weeks ago. Patient normally not on oxygen. Patient is telling me that he have history of chronic shortness of breath, hypertension, hyperlipidemia, atrial fibrillation and currently on Eliquis. Patient smokes cigarettes. Denies alcohol or drug use. Patient denies any fever, chills, nausea, vomiting, chest pain or back pain or headache. Related Data Home Medications ?Medication ?Instructions ?Recorded ?Confirmed ?Last Taken ?Type latanoprost 0.005 % eye drops 1 drp ophthalmic (eye) DAILY 05/05/20 09/13/24 Unknown History alfuzosin 10 mg tablet,extended 10 mg PO DAILY 12/12/23 09/13/24 Unknown History release 24 hr aspirin 81 mg tablet,delayed 81 mg PO DAILY 12/12/23 09/13/24 Unknown History release (Adult Aspirin Regimen) atorvastatin 40 mg tablet 40 mg PO DAILY 12/12/23 09/13/24 Unknown History buspirone 7.5 mg tablet 7.5 mg PO BID 12/12/23 09/13/24 Unknown History carvedilol 12.5 mg tablet 12.5 mg PO Q12H 12/12/23 09/13/24 Unknown History eplerenone 25 mg tablet 25 mg PO DAILY 12/12/23 09/13/24 Unknown History hydroxyzine pamoate 100 mg capsule 100 mg PO Q12H 12/12/23 09/13/24 Unknown History lamotrigine 100 mg tablet 100 mg PO DAILY 12/12/23 09/13/24 Unknown History loratadine 10 mg tablet 10 mg PO DAILY 12/12/23 09/13/24 Unknown History ziprasidone HCl 80 mg capsule 80 mg PO BID 12/12/23 09/13/24 Unknown History fluticasone furoate 27.5 1 spray intranasal DAILY PRN 04/30/24 09/13/24 Unknown History mcg/actuation nasal Congestion spray,suspension tadalafil 20 mg tablet 20 mg PO DAILY PRN Erectile 04/30/24 09/13/24 Unknown History Dysfunction acetaminophen 500 mg tablet 500 mg PO Q6H PRN Pain (Scale 09/13/24 09/13/24 Unknown History Score 1-3) morphine 30 mg tablet,extended 30 mg PO Q12H 09/13/24 09/13/24 Unknown History release ondansetron HCl 8 mg tablet 8 mg PO BID PRN Nausea And Vomiting 09/13/24 09/13/24 Unknown History oxycodone 5 mg tablet 10 mg PO Q4H PRN Pain (Scale Score 09/13/24 09/13/24 Unknown History 7-10) Allergies Allergy/AdvReac Type Severity Reaction Status Date / Time lisinopril Allergy Severe ANGIOEDEMA Verified 09/13/24 10:54 Penicillins Allergy Unknown Swelling Verified 09/13/24 10:54 Review of Systems 2 Review of Systems: All systems reviewed & are unremarkable except as noted in HPI and below PMFSH Past Medical History Medical History Hyponatremia Mitral regurgitation Systolic dysfunction Diastolic dysfunction (04/2024) PAF (paroxysmal atrial fibrillation) Cardiomyopathy Arthritis Bronchitis Asthma COPD (chronic obstructive pulmonary disease) HTN (hypertension) Glaucoma Surgical History Surgical History History of knee replacement procedure of right knee Family History Family History Father Alcoholism Heart problem Hypertension Sibling Alcoholism Cancer Hypertension Mother Cancer Hypertension Grandparent Diabetes mellitus Heart problem Hypertension Sibling Cancer Hypertension Social History Social History Smoking packs per day: 1 Smoking cigarettes per day: 20.0 Years smoked: 40 Smoking pack-years: 40.00 Smoking status: Current every day smoker Tobacco type: cigarettes Alcohol intake: never Substance use: current Substance use type: marijuana Do You Feel Safe in your Home?: Yes Lack of Transportation: No Lack of Food: Never True Current Housing: I Have Housing Concerned About Future Housing: No Difficulty Paying Gas/Electric Bills: No Difficulty Paying for Meds: No Currently Unemployed: No Education: Associate Degree Difficulty w/ Childcare or Family Care: No Gender identity (if verbalized by the patient): Male Spiritual care concerns: No Exam 2 Narrative: General appearance: Well-developed, well-nourished Skin: Normal color Head: Normocephalic, nontraumatic Eyes: Clear conjunctiva ENT: Oropharynx normal, ears normal, nose normal Neck: Supple, nontender Chest and respiratory: Airway patent, no respiratory distress, no accessory muscle use Heart: Regular rate/rhythm Abdomen: Soft, nontender, no organomegaly, quiet bowel sounds Vascular: Normal peripheral pulses, normal capillary refill. Musculoskeletal: Normal range of motion, nontender back Neurologic: Alert and oriented ?3, ELECTRICIAN DECK is normal as tested, no gross motor deficit Course Vital Signs Vital signs: Vital Signs Temperature 36.2 C L 01/19/25 06:44 Pulse Rate 86 01/19/25 06:44 Respiratory Rate 19 01/19/25 06:44 Blood Pressure 147/95 H 01/19/25 06:44 Pulse Oximetry 94 01/19/25 06:44 Oxygen Delivery Room Air 01/19/25 06:44 Temperature 36.2 C L 01/19/25 06:44 Pulse Rate 89 01/19/25 06:50 Respiratory Rate 19 01/19/25 06:44 Blood Pressure 147/95 H 01/19/25 06:44 Pulse Oximetry 100 01/19/25 06:51 Oxygen Delivery Nasal Cannula 01/19/25 06:51 Oxygen Flow Rate 4 01/19/25 06:51 MDM - SOB/Dyspnea MDM Narrative Medical decision making narrative: Patient came with more shortness of breath compared to his chronic shortness of breath, history of stage IV lung cancer, currently on Eliquis Vital signs showing oxygen level 100% on 4 L Physical examination is insignificant Differential diagnosis include anxiety like symptoms, pneumonia, pleural effusion, progression of lung cancer less likely pulmonary embolism patient currently on Eliquis Blood workup today includes CBC, CMP, troponin, BnP showed sodium 132 otherwise insignificant abnormalities Patient tested negative for COVID flu RSV Chest x-ray showed possible early infiltrate versus progression of the cancer ABG on room air showed oxygen saturation at 93%. Discharged on doxycycline for possible beginning of pneumonia Contact oncologist tomorrow for further evaluation. The pt was discharged to home.the pt,s condition upon discharge was fair,education was provided to the pt in reference to the final impression,discharge study results,treatment,prognosis and need for follow up . Differential Diagnosis Differential diagnosis: Likely other (As above) Lab Data 01/19/25 07:03 01/19/25 07:03 Labs: Lab Results 01/19/25 Range/Units 07:03 WBC 3.2 L (4.5-10.0) K/mm3 RBC 3.57 L (4.6-6.20) M/mm3 Hgb 10.5 L (14.0-18.0) g/dL Hct 31.7 L (42.0-52.0) % MCV 88.8 (80-100) fl MCH 29.4 (26-34) pg MCHC 33.1 (32-36) g/dl RDW 18.0 H (11.5-14.5) % Plt Count 179 (150-375) k/mm3 MPV 9.3 (7.4-10.4) fl Immature Gran % (Auto) 0.0 (0-0.5) % Neut % (Auto) 59.7 (45.5-73.1) % Lymph % (Auto) 19.0 (18.3-44.2) % Davidson % (Auto) 13.7 H (2.6-8.5) % Eos % (Auto) 6.3 H (0-4.4) % Baso % (Auto) 1.3 H (0.2-1.2) % Lymph # (Auto) 0.60 L (0.9-3.2) K/mm3 Davidson # (Auto) 0.4 (0.1-0.6) K/mm3 Eos # (Auto) 0.2 (0-0.3) K/mm3 Baso # (Auto) 0.0 (0.0-0.1) K/mm3 Abs Immat Gran (auto) 0.00 (0.00-0.031) K/mm3 Absolute Neuts (auto) 1.9 (1.3-6.7) K/mm3 Absolute Nucleated RBC 0.000 (0.0-0.012) K/mm3 Nucleated RBC % 0.0 (0.0-0.2) % Sodium 132 L (137-145) mmol/L Potassium 3.5 (3.4-5.0) mmol/L Chloride 98 (98-107) mmol/L Carbon Dioxide 25 (22-30) mmol/L Anion Gap 9 (4-12) mmol/L BUN 5 L (9-20) mg/dL Creatinine 0.61 L (0.7-1.3) mg/dL Estim Creat Clear Calc 106 ml/min Estimated GFR > 60 (59 - ) Glucose 92 (65-110) mg/dL Lactic Acid 0.8 (0.7-2.0) mmol/L Calcium 9.0 (8.4-10.2) mg/dL Total Bilirubin 0.4 (0.2-1.3) mg/dL AST 19 (17-59) U/L ALT 15 (6-50) U/L Alkaline Phosphatase 111 (38-126) U/L Troponin I < 0.012 (0.000-0.034) ng/mL NT-Pro-B Natriuret Pep 115 H (19.9-100) pg/mL Total Protein 7.0 (6.3-8.2) g/dL Albumin 3.9 (3.5-5.1) g/dL Influenza A (RT-PCR) Negative (Negative) Influenza B (RT-PCR) Negative (Negative) RSV (RT-PCR) Negative (Negative) SARS-CoV-2 RNA (RT-PCR) Negative (Negative) ABG Data ABG results: 01/19/25 07:49 Puncture Site Left radial ABG pH 7.408 ABG pCO2 40.0 ABG pO2 66.9 L ABG PO2/FiO2 Ratio 3.19 ABG HCO3 24.7 ABG O2 Saturation 93.5 L ABG O2 Content 14.2 L ABG Base Excess 0.1 A-a Gradient 34.9 Oxyhemoglobin 89.7 L Total Hemoglobin 11.2 L O2 Delivery Device Room air O2 Liters/Min Not Reportable FiO2 21 Discharge Plan Discharge Clinical Impression: Pneumonia, Lung cancer Patient Disposition: Home, Self-Care Condition: Stable Instructions: Antibiotic Form, Lung Cancer (DC), Pneumonia (ED) Additional Instructions: Return if symptoms are worsening , call your oncologist for appointment, take Tylenol, ibuprofen as as needed for aches and pain, continue home medications. Patient Language: Lao Prescriptions: New doxycycline hyclate 100 mg tablet 100 mg PO BID Qty: 20 0RF No Action omeprazole 40 mg capsule,delayed release(DR/EC) 40 mg PO DAILY Qty: 90 3RF clotrimazole 10 mg humberto 10 mg mucous membrane TID Qty: 30 0RF albuterol sulfate 90 mcg/actuation HFA aerosol inhaler See Rx Instructions .ROUTE .COMPLEX Qty: 8.5 3RF Dose Instruction: INHALE 1-2 PUFF(S) BY MOUTH EVERY 4 - 6 HOURS NEEDED FOR SHORTNESS OF BREATH OR WHEEZING Rx Instructions: INHALE 1-2 PUFF(S) BY MOUTH EVERY 4 - 6 HOURS NEEDED FOR SHORTNESS OF BREATH OR WHEEZING alfuzosin 10 mg tablet extended release 24 hr 10 mg PO DAILY Rx Instructions: administer after the same meal each day eplerenone 25 mg tablet 25 mg PO DAILY ziprasidone HCl 80 mg capsule 80 mg PO BID Rx Instructions: give with food (meal/snack) carvedilol 12.5 mg tablet 12.5 mg PO Q12H Rx Instructions: must administer with a meal/food buspirone 7.5 mg tablet 7.5 mg PO BID aspirin [Adult Aspirin Regimen] 81 mg tablet,delayed release (DR/EC) 81 mg PO DAILY loratadine 10 mg tablet 10 mg PO DAILY atorvastatin 40 mg tablet 40 mg PO DAILY lamotrigine 100 mg tablet 100 mg PO DAILY hydroxyzine pamoate 100 mg capsule 100 mg PO Q12H fluticasone furoate 27.5 mcg/actuation spray,suspension 1 spray intranasal DAILY PRN (Reason: Congestion) Rx Instructions: into each nostril tadalafil 20 mg tablet 20 mg PO DAILY PRN (Reason: Erectile Dysfunction) nicotine 14 mg/24 hr patch 24 hour 1 patch transdermal DAILY Qty: 28 2RF Eliquis 5 mg tablet 5 mg PO BID Qty: 60 5RF latanoprost 0.005 % Drops 1 drp OPHTHALMIC (EYE) DAILY ondansetron 4 mg tablet,disintegrating 4 mg PO Q4H 0 Days Qty: 10 0RF Rx Instructions: 1st dose 1-2 hr before radiation prednisone 20 mg tablet 40 mg PO DAILY 5 Days Qty: 10 0RF prednisone 50 mg tablet 50 mg PO DAILY Qty: 5 0RF ondansetron HCl 8 mg tablet 8 mg PO BID PRN (Reason: Nausea And Vomiting) morphine 30 mg tablet extended release 30 mg PO Q12H acetaminophen 500 mg Tablet 500 mg PO Q6H PRN (Reason: Pain (Scale Score 1-3)) oxycodone 5 mg tablet 10 mg PO Q4H PRN (Reason: Pain (Scale Score 7-10)) cefdinir 300 mg capsule 300 mg PO Q12H 7 Days Qty: 14 0RF doxycycline hyclate 100 mg tablet,delayed release (DR/EC) 100 mg PO BID 7 Days Qty: 14 0RF budesonide-formoterol [Symbicort] 160-4.5 mcg/actuation HFA aerosol inhaler See Rx Instructions .ROUTE .COMPLEX Qty: 10.2 5RF Dose Instruction: INHALE 2 PUFFS BY MOUTH TWICE A DAY Rx Instructions: INHALE 2 PUFFS BY MOUTH TWICE A DAY. RINSE AND SPIT losartan 50 mg tablet See Rx Instructions .ROUTE .COMPLEX Qty: 30 5RF Dose Instruction: TAKE 1 TABLET BY MOUTH EVERY DAY Rx Instructions: TAKE 1 TABLET BY MOUTH EVERY DAY ipratropium-albuterol 0.5 mg-3 mg(2.5 mg base)/3 mL solution for nebulization 3 ml inhalation QID PRN (Reason: shortness of breath or wheezing) Qty: 360 3RF Follow-up/Referrals: Matthew Mccabe MD [Primary Care Provider] -
[2025-01-19 07:17] LABS: Lactic Acid Reflex 0.8 mmol/L (0.7-2.0)
[2025-01-19 07:18] LABS: Alanine Aminotransferase 15 U/L (6-50); Albumin Level 3.9 g/dL (3.5-5.1); Alkaline Phosphatase 111 U/L (38-126); Anion Gap 9 mmol/L (4-12); Aspartate Amino Transferase 19 U/L (17-59); Bilirubin,Total 0.4 mg/dL (0.2-1.3); Blood Urea Nitrogen 5 mg/dL (9-20); Carbon Dioxide 25 mmol/L (22-30); Chloride 98 mmol/L (98-107); Estimated CRCL calculation 106 ml/min; Estimated Glomerular Filt Rate > 60; Glucose 92 mg/dL (65-110); Potassium 3.5 mmol/L (3.4-5.0); Sodium 132 mmol/L (137-145)
[2025-01-19 07:44] LABS: Influenza A QL RT-PCR Negative (Negative); Influenza B QL RT-PCR Negative (Negative); RSV RNA, RT-PCR Negative (Negative); SARS-CoV-2 RNA PCR Negative (Negative)
[2025-01-19 07:51] LABS: Alveolar/Arterial O2 Gradient 34.9 mmHg; Base Excess ABG 0.1 mEq/l (+/-2.0); Fractional Inspired Oxygen 21 %; HCO3 ABG 24.7 mEq/l (22.0-26.0); Oxygen Content ABG 14.2 %vol (16.0-22.0); Oxygen Saturation ABG 93.5 % (95.0-100.0); Oxyhemoglobin 89.7 % THb (90.0-100.0); PO2 ABG 66.9 mmHg (80.0-100.0); PO2 FiO2 Ratio Arterial Blood 3.19 %; Total Hemoglobin 11.2 g/dL (12.0-18.0); pH ABG 7.408 (7.350-7.450)
[2025-01-19 07:52] LABS: Device ROOM AIR; Modified Allen's Test Pass; Site Drawn LEFT RADIAL
[2025-01-19 08:07] LABS: NT Pro B Type Natriuretic Pept 115 pg/mL (19.9-100); Troponin I < 0.012 ng/mL (0.000-0.034)
[2025-01-19 09:45] VITALS: BP 146/88; PULSE 82; RESP 20; O2SAT 97
== END 2025-01-19 10:13 | disposition home or self-care (01) ==
PROVIDERS: Emergency Medicine; Emergency Provider Emergency Medicine; PCP Family Medicine Adolescent Medicine
DX: J18.9 Pneumonia, unspecified organism (principal); C34.90 Malignant neoplasm of unspecified part of unspecified bronchus or lung; I10 Essential (primary) hypertension; E78.5 Hyperlipidemia, unspecified; I48.91 Unspecified atrial fibrillation; Z79.01 Long term (current) use of anticoagulants; F17.210 Nicotine dependence, cigarettes, uncomplicated; Z79.82 Long term (current) use of aspirin; H40.9 Unspecified glaucoma; J44.9 Chronic obstructive pulmonary disease, unspecified; Z96.651 Presence of right artificial knee joint; Z20.822 Contact with and (suspected) exposure to COVID-19
CPT/HCPCS: 36415; 36600; 71046; 80053; 82805; 83605; 83880; 84484; 85018; 85025; 87637; 93005; 99284

== ENCOUNTER 2025-02-25 06:13 | Inpatient (IN) | payer OTHER, SELFPAY ==
[2025-02-25] VITALS (23 sets, daily range): BP systolic 108–179; BP diastolic 102–118; PULSE 100–114; RESP 18–38; TEMP 36.7–36.8; O2SAT 94–100; BMI 27.7; BMI 27.6
--- NOTE | ~2025-02-25 | XR_ITS ---
Portable chest x-ray Comparison: 02/25/2025 Clinical History: Pneumonia, lung cancer Findings: There is worsening hazy airspace disease at the right midlung field. Stable probable left upper lobe scarring. Cardiomediastinal silhouette is stable. Bones and soft tissues are unremarkable . Impression: Worsening hazy right midlung airspace disease, suspicious for pneumonia. Stable left upper lobe scarring. Reviewed, dictated and finalized at location . Impression: Worsening hazy right midlung airspace disease, suspicious for pneumonia. Stable left upper lobe scarring.
--- NOTE | ~2025-02-25 | XR_ITS ---
Clinical Indication: Shortness of breath AP and lateral views of the chest: Comparison: 01/19/2025 Findings: Stable left upper lobe scarring. There is mild bibasilar haziness.. Cardiomediastinal silh ouette is within normal limits. Bones and soft tissues are unremarkable. Impression: Probable mild worsening bibasilar airspace disease. Correlate for mild pulmonary edema or possibly pn eumonia. Stable left upper lobe scarring. Reviewed, dictated and finalized at location . Impression: Probable mild worsening bibasilar airspace disease. Correlate for mild pulmonar y edema or possibly pneumonia. Stable left upper lobe scarring.
--- NOTE | 2025-02-25 06:24 | ECG_ITS ---
Test Date: 2025-02-25 06:20:43 Measurements Intervals [place] Rate: 110 P: 60 MA: 144 QRS: 16 QRSD: 95 T: 74 QT: 373 QTc: 506 Interpretive Statements SINUS TACHYCARDIA POSSIBLE LEFT ATRIAL ENLARGEMENT BASELINE WANDER- V4-V6 BORDERLINE ECG Compared to ECG 01/19/2025 06:56:52 HEART RATE HAS INCREASED Electronically Signed On 02-25-2025 08:04:02 CDT by Ian Lopez D.O.
[2025-02-25 06:38] LABS: Basophils Percent Auto 0.4 % (0.2-1.2); Eosinophils Percent Auto 0.4 % (0-4.4); Hematocrit 38.4 % (42.0-52.0); Hemoglobin 11.9 g/dL (14.0-18.0); Immature Granulocyte Absolute 0.01 K/mm3 (0.00-0.031); Immature Granulocyte Percent A 0.2 % (0-0.5); Lymphocytes Absolute Auto 0.55 K/mm3 (0.9-3.2); Lymphocytes Percent Auto 12.3 % (18.3-44.2); Mean Corpuscular Hemoglobin 27.4 pg (26-34); Mean Corpuscular Volume 88.3 fl (80-100); Mean Platelet Volume 9.4 fl (7.4-10.4); Monocytes Absolute Auto 0.5 K/mm3 (0.1-0.6); Monocytes Percent Auto 12.1 % (2.6-8.5); Neutrophils Absolute Auto 3.3 K/mm3 (1.3-6.7); Neutrophils Percent Auto 74.6 % (45.5-73.1); Platelet Count Result 205 k/mm3 (150-375); Red Blood Count 4.35 M/mm3 (4.6-6.20); White Blood Count 4.5 K/mm3 (4.5-10.0)
[2025-02-25 06:46] LABS: Alanine Aminotransferase 38 U/L (6-50); Alkaline Phosphatase 115 U/L (38-126); Anion Gap 7 mmol/L (4-12); Aspartate Amino Transferase 37 U/L (17-59); Bilirubin,Total 0.3 mg/dL (0.2-1.3); Blood Urea Nitrogen 9 mg/dL (9-20); Calcium 8.4 mg/dL (8.4-10.2); Carbon Dioxide 30 mmol/L (22-30); Chloride 94 mmol/L (98-107); Estimated CRCL calculation 120 ml/min; Estimated Glomerular Filt Rate > 60; Glucose 120 mg/dL (65-110); Potassium 3.8 mmol/L (3.4-5.0); Sodium 131 mmol/L (137-145)
[2025-02-25 06:56] LABS: Band Neutrophils Percent 0 % (0-6)
[2025-02-25 06:57] LABS: Anisocytosis 1+; Hypochromasia 1+; Platelet Estimate Adequate (Adequate); Schistocytes None Seen
[2025-02-25 07:11] LABS: Influenza A QL RT-PCR Negative (Negative); Influenza B QL RT-PCR Negative (Negative); RSV RNA, RT-PCR Negative (Negative); SARS-CoV-2 RNA PCR Negative (Negative)
--- OUTSIDE RECORDS SUMMARY | 2025-02-25 07:35 | XMS_ITS | Encounter Summary ---
Author Organization [facility] Address [address] [place] [address] Care Team Providers Care Cruise Guide Name Role Phone aIn Pollock MD Primary Care Provider Katina Casiano DO Unavailable [phone] Xavi ACOSTA MD, Jameel Gaviria Primary Care Provider + Katina Casiano DO Unavailable [phone] Tracey Ang PA Unavailable [phone] Belkis Angel [employer]SERVICES DELIVERY DRIVER Primary Care Provider + Natalie Baum Primary Care Provider [phone] Reason for Visit * Reason Onset Date Comments Letter 12/02/2020 Encounter Details Date Type Department Care Team (Late st Contact Info) Description 12/02/2020 Telephone [facility] [address] [place] [address] Agnieszka Haas MD [address] [place] [address] Letter Social History Tobacco Use Types Packs/Day Years Used Date Smoking Tobacco: Every Day Cigarettes 1 30 Smokeless Tobacco: Never Alcohol Use Standard Drinks/Week Comments Yes 6 (1 standard drink = 0.6 oz pure alcohol) beer madi. 25 oz 3 times a week Sex and Gender Information Value Date Recorded Sex Assigned at Not on file 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 CLINICAL PHARMACIST Gender Identity Not on file Sexual Orientation Not on file Occupation Industry Job Start Date Job End Date disability Not on file Not on file Not on file COVID-19 Exposure Response Date Recorded In the last month, have you been in contact with someone who was confirmed or suspected to have Coronavirus / COVID-19? Unable to assess 11/18/2020 1:41 PM CLINICAL PHARMACIST documented as of this encounter Functional Status * Is person deaf or have serious hearing difficulty? Answer Date of Assessment Author No 11/05/2015 3:52 AM Columba Leavitt RN * Is person blind or have serious difficulty seeing? Answer Date of Assessment Author No 11/05/2015 3:52 AM Columba Leavitt RN * Does person have serious difficulty walking/climbing stairs? Answer Date of Assessment Author No 11/05/2015 3:52 AM Columba Leavitt RN * Does person have difficulty dressing/bathing? Answer Date of Assessment Author No 11/05/2015 3:52 AM Columba Leavitt RN * Does person have difficulty doing errands alone? Answer Date of Assessment Author No 11/05/2015 3:52 AM Columba Leavitt RN documented as of this encounter Mental Status * Does person have difficulty concentrating/remembering/making decisions? Answer Entry Date Author Yes 11/05/2015 3:52 AM Columba Leavitt RN documented in this encounter Miscellaneous Notes * Telephone Encounter - Blanca Candelario - 12/02/2020 8:45 AM CST Current Provider name: Dr. Agnieszka Haas Reason for call: Mr. Josafat Calvo called in to get a letter from you stating he has EMPHYSEMA, so he can perhaps get his covid vaccine sooner Thanks. Patient Call Back number: [phone] ICAL PHARMACIST documented in this encounter Plan of Treatment [...] on filedocumented in this encounter Care Teams Cruise Guide Relationship Specialty Start Date End Date Ian Pollock MD [address] [facility] [place] [address] PCP - General 08/21/20 05/29/23 Jameel Hurley III, MD [address] [facility] [place] [id number] PCP - General Internal Medicine 06/05/23 08/28/23 Belkis Angel, [employer]SERVICES DELIVERY DRIVER [address] [facility] [address] [place] [id number] PCP - General Nurse Practitioner 08/29/23 05/05/24 Natalie Baum [address] [place] [address] PCP - General 05/06/24 Katina Casiano DO [address] [facility] [place], [place] Resident - PCP Internal Medicine 08/10/22 05/29/23 Katina Casiano DO [address] [facility] [place], [place] Hospitalist 06/05/23 Tracey Ang PA [address] [place] [address] Physician Talent Acquisition Assistant 08/15/23 documented as of this encounter
--- OUTSIDE RECORDS SUMMARY | 2025-02-25 07:35 | XMS_ITS ---
Care Plan - [facility] Created on: February 25, 2025 RYLEE GRAY : 1960 Sex: Male Author Organization [facility] Address [address] [place] [address] Phone Care Team Providers Care Cell Installer Name Role Phone MARCIE WALTERS, SADIE Giraldo Unavailable
--- OUTSIDE RECORDS SUMMARY | 2025-02-25 07:35 | XMS_ITS | Clinical Summary ---
Author Organization [facility] Address [address] [place] [address] Care Team Providers Care Rectifying Attendant Name Role Phone Katina Casiano DO Unavailable [phone] Tracey Ang PA Unavailable [phone] Natalie Baum Primary Care Provider [phone] Source Comments [facility],non-owned Affiliates and Associated Physician Practices is amultiple site organization consisting of ambulatory clinics and hospital sitesin [place], [place], [place] and [place]. This disclosure is being madepursuant to the Care Everywhere program and may not contain all information available regarding this patient. Last updated 18.[facility] Allergies Active Allergy Reactions Criticality Noted Date Comments Lisinopril Anaphylaxis,Unknown High 03/27/2015 Penicillins Anaphylaxis High 11/01/2015 Penicillin G Swelling 09/30/2015 Medications * This document contains information received from the source organization and may not represent a complete record from that organization. * Be aware that medications may not be up to date on this document. Alwaysverify current medications with the patient. lamoTRIgine (LAMICTAL) 100 MG tablet 0 Active hydrOXYzine pamoate (VISTARIL) 100 MG capsule 1 Active sildenafil (VIAGRA) 100 MG tabletIndication s:Erectile Dysfunction Take 1 (one) tablet by mouth once as needed 1 hour prior to intercourse Reasons: Erectile Dysfunction 10 tablet 4 2 Active Additional Information Patient not taking.Reported on 08/02/2023 nicotine polacrilex (NICORETTE) 4 MG gumIndications:N icotine Dependence Take 1 (one) Each by mouth as needed for Smoking Cessation Reasons: Nicotine Addiction 100 Each 3 2 Active Additional Information Patient not taking.Reported on 01/29/2024 nicotine polacrilex (COMMIT) 4 MG lozengeIndicatio ns:Nicotine Dependence Take 1 (one) Each by mouth as needed for Smoking Cessation Reasons: Nicotine Addiction 108 lozenge 3 2 Active Additional Information Patient not taking.Reported on 01/29/2024 acetaminophen (TYLENOL) 500 MG capsuleIndicatio ns:Pain Take 1 (one) capsule by mouth every 4 hours as needed for Fever or Pain Reasons: Pain Active albuterol (Proventil;Neftaly lyndsey) (2.5 MG/3ML) 0.083% nebulizer solutionIndicati ons:Centrilobula r emphysema (HCC),Asthma-ALUMINUM SHEET CUTTER D overlap syndrome (HCC) Inhale 2.5 (two and one-half) mg by mouth every 4 hours as needed for Shortness of Breath 75 mL 6 3 Active fluticasone propionate (Flonase) 50 MCG/ACT nasal sprayIndications :Asthma-COPD overlap syndrome (HCC) SHAKE LIQUID AND USE 2 SPRAYS IN EACH NOSTRIL EVERY DAY 16 g 11 3 Active loratadine (Claritin) 10 MG tabletIndication s:Seasonal allergic rhinitis, unspecified trigger Take 1 (one) tablet by mouth once daily 90 tablet 4 3 Active Additional Information Patient not taking.Reported on 08/02/2023 aspirin (Aspirin Low Dose) 81 MG chew tablet CHEW AND SWALLOW 1 TAB DAILY 90 tablet 3 3 Active tiotropium (Spiriva Respimat) 2.5 MCG/ACT inhalerIndicatio ns:Pulmonary emphysema, unspecified emphysema type (HCC),Asthma, unspecified asthma severity, unspecified whether complicated, unspecified whether persistent (HCC) Inhale 2 (two) puffs by mouth once daily 12 g 4 3 Active Additional Information Patient not taking.Reported on 01/29/2024 triamcinolone acetonide (Kenalog) 0.1 % cream Apply to affected area 2 times daily 60 g 3 Active Additional Information Patient not taking.Reported on 01/29/2024 varenicline (Chantix) 1 MG tabletIndication s:Smoking Cessation Therapy Take 1 (one) tablet by mouth 2 times daily Reasons: Treatment to Stop Smoking 60 tablet 2 3 Active Additional Information Patient not taking.Reported on 01/29/2024 tadalafil (Cialis) 20 MG tabletIndication s:Erectile Dysfunction Take 1 (one) tablet by mouth once daily as needed (before sex for a better erection) Reasons: Erectile Dysfunction 10 tablet 1 3 Active Additional Information Patient not taking.Reported on 01/29/2024 latanoprost (Xalatan) 0.005 % ophthalmic solution INSTILL ONE DROP INTO BOTH EYES AT NIGHT 3 Active ziprasidone (Geodon) 80 MG capsule 3 Active Symbicort 160-4.5 MCG/ACT inhalerIndicatio ns:Centrilobular emphysema (HCC),Asthma-ALUMINUM SHEET CUTTER D overlap syndrome (HCC) Inhale 2 (two) puffs by mouth once daily 10.2 g 3 3 Active albuterol HFA (Proventil; Ventolin; Proair) 108 (90 Base) MCG/ACT inhalerIndicatio ns:Centrilobular emphysema (HCC),Asthma-ALUMINUM SHEET CUTTER D overlap syndrome (HCC) Inhale 2 (two) puffs by mouth every 6 hours as needed 8 g 1 4 Active busPIRone (Buspar) 7.5 MG tablet Take 1 (one) tablet by mouth 2 times daily 4 Active atorvastatin (Lipitor) 40 MG tablet Take 1 (one) tablet by mouth once daily 90 tablet 3 4 Active carvedilol (Coreg) 12.5 MG tablet Take 1 (one) tablet by mouth 2 times daily with morning and evening meal 180 tablet 3 4 Active eplerenone (Inspra) 25 MG tabletIndication s:Heart failure with reduced ejection fraction (HCC) Take 1 (one) tablet by mouth once daily 90 tablet 3 4 Active hydroCHLOROthiaz michelle (Hydrodiuril) 25 MG tablet Take 1 (one) tablet by mouth once daily 90 tablet 3 4 Active omeprazole (PriLOSEC) 40 MG capsuleIndicatio ns:Gastroesophag eal reflux disease without esophagitis Take 1 (one) capsule by mouth daily before breakfast 90 capsule 3 4 Active alfuzosin CR 24hr (Uroxatral) 10 MG tablet TAKE 1 TABLET BY MOUTH EVERY DAY 90 tablet 1 5 Active Active Problems Problem Noted Date Diagnosed Date Nonrheumatic mitral valve regurgitation 05/30/20 23 Assessment & Plan (05/30/2023 3:05 PM CDT): Clearly mild to moderate and stable. No indication for surgical or mitral clip. patient reassured Sleep apnea 01/04/2023 Assessment & Plan (01/04/2023 2:27 PM GLOBAL RECRUITER): - sleep study pending Fatigue 01/04/2023 Assessment & Plan (01/04/2023 2:28 PM GLOBAL RECRUITER): - Check TSH - pending sleep study [...] 07/29/2022 Assessment & Plan (01/04/2023 2:26 PM GLOBAL RECRUITER): - Due for TDap, Zoster, Covid outside [...] 07/29/2022 Assessment & Plan (01/04/2023 2:19 PM GLOBAL RECRUITER): - Will try to resend Eplerenone, previously [...] 01/05/2022 Assessment & Plan (01/04/2023 2:26 PM GLOBAL RECRUITER): - Likely sleep-related, obesity, SHAYNE - Cont. PPI Sleep choking syndrome 01/05/2022 PND (paroxysmal nocturnal dyspnea) 01/05/2022 Bipolar affective disorder 12/24/2021 Back pain 12/24/2021 Family history of other specified conditions Asthma-COPD overlap syndrome 11/11/2021 Assessment & Plan (01/04/2023 2:18 PM GLOBAL RECRUITER): - Tob cessation Chronic midline low back pain without sciatica 0 11/09/2021 Lumbosacral disc disease 11/09/2021 Foraminal stenosis of lumbar region 11/09/2021 Heart failure with reduced ejection fraction 09/2021 Assessment & Plan (05/30/2023 3:04 PM CDT): HF with EF recovered to normal. Continue current treatment. Assessment & Plan (01/04/2023 2:16 PM GLOBAL RECRUITER): - See HTN above - Pt not [...] 07/11/2019 Assessment & Plan (01/04/2023 2:15 PM GLOBAL RECRUITER): - Stable, despite holding spirono due to [...] 11/06/2017 Assessment & Plan (01/04/2023 2:13 PM GLOBAL RECRUITER): - Encouraged cessation, ready to quit - [...] 12/02/2024 Refill [facility] - Urology [address] [place] [address], [place] [id number] Florence Ojeda, OXYACETYLENE BURNER-ROPEMAN Refill Request from Last 3 Months Immunizations Immunization Administration Dates Next Due COVID DIOR PRIMARY [...] on file 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 GLOBAL RECRUITER Gender Identity Not on file Sexual Orientation [...] 09/14/2021, 01/17/2021, Additional history exists INFLUENZA VACCINE (Season Ended) 2025 09/29/2023, 07/29/2022, 07/26/2021, Additional history exists SCREENING FOR DIABETES 08/09/2025 , 01/04/2021, 06/17/2020, Additional history exists COLON MONITORING [...] complete this topic MENINGOCOCCAL (Group B) VACCINE SHARED DECISION-MAKING Aged Out No longer eligible based on patient's age to complete this topic MENINGOCOCCAL GROUPS A/C/Y/W VACCINE Aged Out No longer eligible based [...] ENDOSCOPY, COLON, SCREENING Routine 12/07/2022 10:04 AM GLOBAL RECRUITER COMPREHENSIVE METABOLIC PANEL Routine 08/09/2022 1:47 PM CDT Weight loss HEPATITIS C AB W/RFLX TO HCV RNA QN PCR 09/19/2019 9:17 AM GLOBAL RECRUITER from Last 3 Months or Most Recently Relevant to Health Maintenance Results * ENDOSCOPY, COLON, SCREENING (12/07/2022 10:04 AM GLOBAL RECRUITER) Report Endoscopy POC Endoscopy Department Report _ [...] entire procedure. Procedure Code(s): --- Professional --- 08174, Colonoscopy, flexible; with removal of tumor(s), polyp(s), or other lesion(s) by snare technique Diagnosis Code(s): --- Professional --- Z86.010, Personal history of colonic polyps K63.5, Polyp of colon Z80.0, Family history of malignant neoplasm of digestive organs CPT copyright 2019 [employer]. All rights reserved. The codes documented in this report are preliminary and upon web services developer review may be revised to meet current compliance requirements. Tal Mccormick, 12/07/2022 10:49:20 AM Note Initiated On: 12/07/2022 10:04 AM Number of Addenda: [address] [address] [facility] [employer] 12/07/2022 10:0 4 AM GLOBAL RECRUITER [facility] Tal Mccormick MD GI PROCEDURE O RDERABLES Edited Result - Final [facility] [employer] * (ABNORMAL) COMPREHENSIVE METABOLIC PANEL (08/09/2022 [...] 46 U/L [facility] Comment: Test Performed at: [place] [address] PRUDENCIO ALDANA DO,MPH Blood BLOOD SPECIMEN / Unknown 08/09/2022 1:47 PM CDT 08/09/2022 1:50 PM CDT Ian Pollock MD LAB - CHEMISTRY ORDERABLES Fin al Result [facility] [address] [place] [address] * HEPATITIS C AB W/RFLX TO HCV RNA QN PCR (09/19/2019 9:17 AM GLOBAL RECRUITER) Hepatitis C Antibody NON-REACTI VE NON-REACT FELY [facility] Signal to Cut-Off 0.03 <1.00 [facility] Comment: HCV antibody was non-reactive. There is no laboratory evidence of HCV infection. In most cases, no further action is required. However, if recent HCV exposure is suspected, a test for HCV RNA (test code 13781) is suggested. For additional information please refer to http://education.[employer]/faq/ZOA46d7 (This link is being provided for informational/ educational purposes only.) Test Performed at: [facility] [address] [facility] [place] [address] PRUDENCIO ALDANA DO,MPH 09/19/2019 9:17 AM GLOBAL RECRUITER 09/19/2019 9:21 AM GLOBAL RECRUITER Monica Tellez OXYACETYLENE BURNER-ROPEMAN LAB - CHEMISTRY ORD ERABLES Final Result [facility] [id number] [place] [address] from Last 3 Months or Most Recently Relevant to Health Maintenance Insurance [facility] Advance Directives Documents on File Type Date Recorded Patient Package Car Driver Expl anation Adv Directive/Living Will/POA 11/05/2015 12:22 PM * Full Code (Latest Code Status on File) Date Activated Date Inactivated Comments 11/01/2015 9:11 PM 11/05/2015 6:02 AM Care Teams Rectifying Attendant Relationship Specialty Start Date End Date Natalie Baum [address] [place] [address] PCP - General 05/06/24 Katina Casiano DO [address] [facility] [address] [facility] INTERNAL MEDICINE [place], [place] Hospitalist 06/05/23 Tracey Ang PA [address] [facility] [address] [place] [address] Physician Employment Evaluator/Case Manager 08/15/23
--- OUTSIDE RECORDS SUMMARY | 2025-02-25 07:35 | XMS_ITS | Encounter Summary ---
Author Organization [facility] Address [facility] [place] [address] Care Team Providers Care Auto Dealer Name Role Phone Amilcar Osorio MD Primary Care Provider [phone] Monica Tellez NP Primary Care Provider [phone] Natalie Baum HEAD OF BUSINESS DEVELOPMENT Primary Care Provider [phone] Encounter Details Date Type Department Care Team (Late st Contact Info) Description 04/16/2018 Hosp Visit [facility] [place] [address] Grecia Hess, [place] [address] Social History Tobacco Use Types Packs/Day Years Used Date Smoking Tobacco: Never Assessed Sex and Gender Information Value Date Recorded Sex Assigned at Male 01/19/2025 5:01 PM CDT Legal Sex Male 11:29 PM CDT Gender Identity Not on file Sexual Orientation Not on file documented as of this encounter Plan of Treatment Not on file documented as of this encounter Visit Diagnoses Not on filedocumented in this encounter Care Teams Auto Dealer Relationship Specialty Start Date End Date Amilcar Osorio MD [address] [facility], [address] [address] PCP - General 05/01/17 09/04/19 Monica Tellez NP [address] [facility], [address] [address] PCP - General NURSE PRACTITIONER 09/05/19 01/18/25 Natalie Baum NP [address] [place] [address] PCP - General FAMILY PRACTICE 01/19/25 documented as of this encounter
--- OUTSIDE RECORDS SUMMARY | 2025-02-25 07:35 | XMS_ITS | Encounter Summary ---
Author Organization [facility] Address [address] [facility] [place] [address] Care Team Providers Care Pickling Operator Name Role Phone Ian Pollock MD Primary Care Provider Katina Casiano DO Unavailable [phone] Xavi ACOSTA MD, Jameel R Primary Care Provider + Katina Casiano DO Unavailable [phone] Tracey Ang PA Unavailable [phone] Belkis Angel CENTER DIRECTOR LEAD TEACHER-SENIOR ANALYTIC CONSULTANT Primary Care Provider + Natalie Baum Primary Care Provider [phone] Reason for Visit * Reason Onset Date Comments Refill Request 04/13/2021 Encounter Details Date Type Department Care Team (Late st Contact Info) Description 04/13/2021 Telephone [facility] [address] [place] [address] Ian Pollock MD [address] [place] [address] Refill Request Social History Tobacco [...] on file 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 GENERAL PRACTICE Gender Identity Not on file Sexual Orientation Not on file Occupation Industry Job Start Date Job End Date disability Not on file Not on file Not on file documented as of this encounter Functional Status * Is person deaf or have serious hearing difficulty? Answer Date of Assessment Author No 01/20/2021 3:30 PM CDT Sally Hinds RN * Is person blind or have serious difficulty seeing? Answer Date of Assessment Author No 01/20/2021 3:30 PM CDT Sally Hinds RN * Does person have serious difficulty walking/climbing stairs? Answer Date of Assessment Author Yes 01/20/2021 3:30 PM CDT Sally Hinds RN * Does person have difficulty dressing/bathing? Answer Date of Assessment Author No 01/20/2021 3:30 PM CDT Sally Hinds RN * Does person have difficulty doing errands alone? Answer Date of Assessment Author No 01/20/2021 3:30 PM CDT Sally Hinds RN documented as of this encounter Mental Status * Does person have difficulty concentrating/remembering/making decisions? Answer Entry Date Author No 01/20/2021 3:30 PM MARCUST Sally Hinds RN documented in this encounter Miscellaneous Notes [...] the gabapentin is helpful. Refill Request Josafat Branch Umesh EDELMIRA: 10/08/20 NOV scheduled: 11/09/2021 LRF:10/08/20 Qty [...] to be refilled. Patient Call Back number: [phone] documented in this encounter Plan of Treatment [...] sciatica documented in this encounter Care Teams Pickling Operator Relationship Specialty Start Date End Date Ian Pollock MD [address] [facility] [place] [place] [address] PCP - General 08/21/20 05/29/23 Jameel Hurley III, MD [address] [facility] [place] [id number] PCP - General Internal Medicine 06/05/23 08/28/23 Belkis Angel, CENTER DIRECTOR LEAD TEACHER-SENIOR ANALYTIC CONSULTANT [address] [place] [address] [address] [place] [id number] PCP - General Nurse Practitioner 08/29/23 05/05/24 Natalie Baum [address] [place] [address] PCP - General 05/06/24 Katina Casiano DO [address] [facility] INTERNAL MEDICINE [place], [place] Resident - PCP Internal Medicine 08/10/22 05/29/23 Katina Casiano DO [address] [facility] [address] [facility] INTERNAL MEDICINE [place], [place] Hospitalist 06/05/23 Tracey Ang PA [address] [facility] [address] [place] [address] Physician Lead Pressman 08/15/23 documented as of this encounter
--- OUTSIDE RECORDS SUMMARY | 2025-02-25 07:35 | XMS_ITS | Encounter Summary ---
Author Organization [facility] Address [facility] [place] [address] Care Team Providers Care Digital Project Manager Name Role Phone Amilcar Osorio MD Primary Care Provider [phone] Monica Tellez NP Primary Care Provider [phone] Natalie Baum MEMBER OF PARLIAMENT Primary Care Provider [phone] Encounter Details Date Type Department Care Team (Late st Contact Info) Description 07/03/2018 Abstract [facility] Medical Group Multispecialty Care - [facility] [address] [facility] [place] [address] Gina Fleming APNP [address] [place] [address] Social History Tobacco Use Types Packs/Day Years [...] filedocumented in this encounter Care Teams Digital Project Manager Relationship Specialty Start Date End Date Amilcar Osorio MD [address] [facility], [address] [address] PCP - General 05/01/17 09/04/19 Monica Tellez NP [address] [place] [address] PCP - General NURSE PRACTITIONER 09/05/19 01/18/25 Natalie Baum NP [address] [place] [address] PCP - General FAMILY PRACTICE 01/19/25 documented as of this encounter
--- OUTSIDE RECORDS SUMMARY | 2025-02-25 07:35 | XMS_ITS | Encounter Summary ---
Author Organization [facility] Address [facility] [place] [address] Care Team Providers Care Fiberglass Dowel Drawing Operator Name Role Phone Amilcar Osorio MD Primary Care Provider [phone] Monica Tellez NP Primary Care Provider [phone] Natalie Baum MONEY POSITION OFFICER Primary Care Provider [phone] Encounter Details Date Type Department Care Team (Late st Contact Info) Description 04/09/2018 Hosp Visit [facility] [place] [address] Grecia Hess, [place] [address] Social History Tobacco Use Types Packs/Day Years [...] on filedocumented in this encounter Care Teams Fiberglass Dowel Drawing Operator Relationship Specialty Start Date End Date Amilcar Osorio MD [address] [facility], [address] [id number] PCP - General 05/01/17 09/04/19 Monica Tellez NP [address] [facility], [address] [address] PCP - General NURSE PRACTITIONER 09/05/19 01/18/25 Natalie Baum NP [address] [place] [address] PCP - General FAMILY PRACTICE 01/19/25 documented as of this encounter
--- OUTSIDE RECORDS SUMMARY | 2025-02-25 07:35 | XMS_ITS | Encounter Summary ---
Author Organization [facility] Address [address] [facility] [place] [place] [address] Care Team Providers Care Apparel Merchandiser Name Role Phone Ian Pollock MD Primary Care Provider [phone] Ian Pollock MD Primary Care Provider [phone] Ian Pollock MD Primary Care Provider [phone] Ian Pollock MD Primary Care Provider [phone] Katina Casiano DO Unavailable [phone] Xavi ACOSTA MD, Jameel R Primary Care Provider + Katina Casiano DO Unavailable [phone] Traecy Ang PA Unavailable [phone] Belkis Angel TOLL LINE INSPECTOR-STEAM POWERPLANT SUPERVISOR Primary Care Provider + Natalie Baum Primary Care Provider [phone] Reason for Visit * Reason Onset Date Comments MEDICATION REFILL 05/05/2020 Encounter Details Date Type Department Care Team (Late st Contact Info) Description 05/05/2020 Refill [facility] Critical [facility] Medicine [address] [place] [address] Agnieszka Haas MD [address] [place] [address] MEDICATION REFILL Social History Tobacco Use Types [...] on file 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 TASSEL MAKING MACHINE OPERATOR Gender Identity Not on file [...] Entry Date Author Yes 11/05/2015 3:52 AM Colubma Leavitt RN documented in this encounter Plan of [...] on filedocumented in this encounter Care Teams Apparel Merchandiser Relationship Specialty Start Date End Date Ian Pollock MD PCP - General 12/13/19 05/25/20 Ian Pollock MD PCP - General 05/26/20 06/15/20 Ian Pollock MD [address] [facility] [place] [address] PCP - General 07/31/20 08/20/20 Ian Pollock MD [address] [facility] [place] [address] PCP - General 08/21/20 05/29/23 Jameel Hurley III, MD [address] [facility] [place] [phone] PCP - General Internal Medicine 06/05/23 08/28/23 Belkis Angel, TOLL LINE INSPECTOR-STEAM POWERPLANT SUPERVISOR [address] [phone] PCP - General Nurse Practitioner 08/29/23 05/05/24 Natalie Baum [address] [place] [address] PCP - General 05/06/24 Katina Casiano DO [address] [facility] INTERNAL MEDICINE [place], [place] Resident - PCP Internal Medicine 08/10/22 05/29/23 Katina Casiano DO [address] [facility] INTERNAL MEDICINE [place], [place] Hospitalist 06/05/23 Tracey Ang PA [address] [facility] [address] [place] [address] Physician Bolt Sorter 08/15/23 documented as of this encounter
--- OUTSIDE RECORDS SUMMARY | 2025-02-25 07:35 | XMS_ITS | Encounter Summary ---
Author Organization [facility] Address [address] [address] Care Team Providers Care Corporate Development Associate Name Role Phone Ian Pollock MD Primary Care Provider Katina Casiano DO Unavailable [phone] Xavi ACOSTA MD, Jameel Gaviria Primary Care Provider + Katina Casiano DO Unavailable [phone] Tracey Ang PA Unavailable [phone] Belkis Angel NETWORK LEAD-CATIA DESIGNER Primary Care Provider + Natalie Baum Primary Care Provider [phone] Encounter Details Date Type Department Care Team (Late st Contact Info) Description 04/22/2021 Telephone [facility] [address] [place] [address] Kezia Hollis MD [address] OF PULMONARY/[place] [address] Social History Tobacco Use Types Packs/Day Years Used Date Smoking Tobacco: Every Day Cigarettes 1 30 Smokeless Tobacco: Never Alcohol Use Standard Drinks/Week Comments Yes 6 (1 standard drink = 0.6 oz pure alcohol) beer madi. 25 oz 3 times a week Sex and Gender Information Value Date Recorded Sex Assigned at Not on file 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 CARDIOGRAPHER Gender Identity Not on file Sexual Orientation [...] of Assessment Author No 01/20/2021 3:30 PM MARCUST Sally Hinds RN documented as of this encounter Mental Status * Does person have difficulty concentrating/remembering/making decisions? Answer Entry Date Author No 01/20/2021 3:30 PM MARCUST Sally Hinds RN documented in this encounter Miscellaneous Notes * Telephone Encounter - Spenser Barraza - 04/22/2021 9:44 AM CDT Patient called [...] stay with Dr. Hollis? Call Back #: [phone] documented in this encounter Plan of Treatment [...] filedocumented in this encounter Care Teams Corporate Development Associate Relationship Specialty Start Date End Date Ian Pollock MD [address] [facility] [place] [address] PCP - General 08/21/20 05/29/23 Jameel Hurley III, MD [address] [facility] [address] [facility] [place] [id number] PCP - General Internal Medicine 06/05/23 08/28/23 Belkis Angel APRN-CATIA DESIGNER [address] [place] [address] [address] [place] [id number] PCP - General Nurse Practitioner 08/29/23 05/05/24 Natalie Baum [address] [place] [address] PCP - General 05/06/24 Katina Casiano DO [address] [facility] [place] [place], [place] Resident - PCP Internal Medicine 08/10/22 05/29/23 Katina Casiano DO [address] [address] [facility] [place] [place], [place] Hospitalist 06/05/23 Tracey Ang PA [address] [facility] [address] [place] [address] Physician Milliner Helper 08/15/23 documented as of this encounter
--- OUTSIDE RECORDS SUMMARY | 2025-02-25 07:35 | XMS_ITS | Encounter Summary ---
Author Organization [facility] Address [facility] [place] [address] Care Team Providers Care Astrophysics Professor Name Role Phone Amilcar Osorio MD Primary Care Provider [phone] Monica Tellez NP Primary Care Provider [phone] Natalie Baum CALL CENTER SUPPORT REPRESENTATIVE Primary Care Provider + [phone] Encounter Details Date Type Department Care Team (Late st Contact Info) Description 04/02/2018 Hosp Visit [facility] [place]patient [place] [address] Grecia Hess, [place] [address] Social History Tobacco Use Types Packs/Day Years [...] on filedocumented in this encounter Care Teams Astrophysics Professor Relationship Specialty Start Date End Date Amilcar Osorio MD [address] [facility], [address] [id number] PCP - General 05/01/17 09/04/19 Monica Tellez NP [address] [facility], [address] [address] PCP - General NURSE PRACTITIONER 09/05/19 01/18/25 Natalie Baum NP [address] [place] [address] PCP - General FAMILY PRACTICE 01/19/25 documented as of this encounter
--- OUTSIDE RECORDS SUMMARY | 2025-02-25 07:35 | XMS_ITS | Encounter Summary ---
Author Organization [facility] Address [facility] [place] [address] Care Team Providers Care Warp Knitter Helper Name Role Phone Amilcar Osorio MD Primary Care Provider [phone] Monica Tellez NP Primary Care Provider [phone] Natalie Baum SUPERVISOR DRAWING Primary Care Provider + [phone] Encounter Details Date Type Department Care Team (Late st Contact Info) Description 04/09/2018 Hosp Visit [facility] Outpatient [place] [address] Grecia Hess, [place] [address] Social History Tobacco Use Types Packs/Day Years [...] filedocumented in this encounter Care Teams Warp Knitter Helper Relationship Specialty Start Date End Date Amilcar Osorio MD [address] [facility], [address] [address] PCP - General 05/01/17 09/04/19 Monica Tellez NP [address] [facility], [address] [address] PCP - General NURSE PRACTITIONER 09/05/19 01/18/25 Natalie Baum NP [address] [place] [address] PCP - General FAMILY PRACTICE 01/19/25 documented as of this encounter
--- OUTSIDE RECORDS SUMMARY | 2025-02-25 07:36 | XMS_ITS | Clinical Summary ---
Author Organization [facility] Address [address] [place] [address] Phone Care Team Providers Care Mold Design Engineer Name Role Phone SADIE JACK MD [...] On 0 10:36AM By PAUL DAVIS-ANAYA ; [facility] Gabapentin 600 MG Oral Tablet 05/26/2020 Provider: PAUL MAJANO Diagnosis: Radiculopathy, l umbar region TAKE 1 TABLET BY MOUTH THREE TIMES DAILY. Last Documented On 0 2:54PM By PAUL NUNEZ ; [facility] Triamcinolone Acetonide 0.1% External Cream 10/07/2019 Provider: Diagnosis: Last Documented On 9 11:28AM By Faye MEJÍA ; [facility] Spironolactone 50 MG Oral Tablet 10/07/2019 Provider : Diagnosis: Last Documented On 9 11:27AM By Faye MEJÍA ; [facility] Omeprazole 40 MG Oral Capsule Delayed Release 10/07/20 Provider: Diagnosis: Last Documented On 9 11:27AM By Faye MEJÍA ; [facility] Ibuprofen 600 MG Oral Tablet 10/07/2019 Provider: Diagnosis: Last Documented On 9 11:27AM By Faye MEJÍA ; [facility] hydrOXYzine Pamoate 50 MG Oral Capsule 10/07/2019 Pr ovider: Diagnosis: Last Documented On 9 11:26AM By Faye MEJÍA ; [facility] Carvedilol 25 MG Oral Tablet 10/07/2019 Provider: Diagnosis: Last Documented On 9 11:26AM By Faye MEJÍA ; [email or web address] Medications Administered Includes: Administered Medications from this [...] Active Last Documented On 0 8:29AM ; [facility] Lisinopril Allergy 10/07/2019 Active Last Documented On 0 8:29AM ; [facility] Insurance Includes: Active Insurance Policies Plan Name Member ID Group # Subscriber Relationship Effect jeannine Dates - [facility] [id number] RYLEE GRAY Self Clinical Notes Includes: Clinical Notes from this encounter No Clinical Notes Recorded
--- OUTSIDE RECORDS SUMMARY | 2025-02-25 07:36 | XMS_ITS | Continuity of Care Document ---
Author Organization [facility] Address [address] [place] [address] Phone Care Team Providers Care Maintenance Mechanic Elevators Name Role Phone Unavailable Unavailable Unavailable Medications [...] VST EST PT LOW TO MOD SEVERITY [facility] , [address], [place], [place], [id number], tel:[phone] Custodial OTHER SPECFD COUNSELING 8 No Information [facility] , [address], [place], [place], [address], [place] tel:[phone] [facility] No Information 8 No Information OFFICE CONSULT, 15 MIN, 3 RODRIGUEZ COMPS: PROB FOCUS HX; PROB FOCUS EXAM; [facility] , [address], [place], [place], [address], [place] tel:[phone] [facility] COUNSELING NOS 8 No Information HOME VST EST PT LOW TO MOD SEVERITY [facility] , [address], [place], [place], [address], [place] tel:[phone] Custodial OTHER SPECFD COUNSELING 8 No Information HOME VST NEW PT HI SEVERITY [facility] , [address], [place], [place], [address], [place] tel:[phone] [employer] DRUG ABUSE NEC-UNSPECDEPRES SIVE DISORDER NECHYPERTENSION NOS 8 No Information [facility] , [address], [place], [place], [id number], [place] tel:[phone] [facility] DENTAL EXAMINATION 8 No Information Family History Family Member Type Diagnosis Age At Onset No Information Payers Payer name Insurance type Covered alliance party ID Authoriza tion(s) No Information Social [...]
--- OUTSIDE RECORDS SUMMARY | 2025-02-25 07:36 | XMS_ITS | Clinical Summary ---
Author Organization [facility] Address [facility] [place] [address] Care Team Providers Care Federal Aid Coordinator Name Role Phone Natalie Baum LE Primary Care Provider + [phone] Allergies Active Allergy Reactions Criticality Noted Date Comments Lisinopril Unknown 03/27/2015 Penicillins Swelling,Unknown,Anaphylaxis High 2011 Medications * This document contains information received from the source organization and may not represent a complete record from that organization. alfuzosin ER (UROXATRAL) 10 MG 24 hr tablet Take 1 tablet (10 mg total) by mouth daily. 5 Active ELIQUIS 5 MG tablet Take 1 tablet (5 mg total) by mouth 2 (two) times daily. Active atorvastatin (LIPITOR) 40 MG tablet Take 1 tablet (40 mg total) by mouth daily. Active SYMBICORT 160-4.5 MCG/ACT inhaler Inhale 2 puffs into the lungs 2 (two) times daily. Active busPIRone (BUSPAR) 10 MG tablet Take 1 tablet (10 mg total) by mouth 2 (two) times daily. Active hydrOXYzine (VISTARIL) 25 MG capsule Take 2 capsules (50 mg total) by mouth 3 (three) times daily as needed for Itching or Anxiety. Active ipratropium-al buterol (DUONEB) 0.5-2.5 (3) MG/3ML Solution Take 3 mLs by nebulization every 6 (six) hours as needed (shortness of breath, wheezing). Active losartan (COZAAR) 50 MG tablet Take 1 tablet (50 mg total) by mouth daily. Active mirtazapine (REMERON) 7.5 MG Tab tablet Take 1 tablet (7.5 mg total) by mouth nightly at bedtime. 4 Active morphine (MSIR) 30 MG Tab Take 1 tablet (30 mg total) by mouth every 12 (twelve) hours as needed (pain). Active ondansetron (ZOFRAN) 8 MG tablet Take 1 tablet (8 mg total) by mouth every 8 (eight) hours as needed for Nausea. 5 Active SENEXON-S 8.6-50 MG tablet Take 2 tablets by mouth daily. Active ziprasidone (GEODON) 80 MG capsule Take 1 capsule (80 mg total) by mouth 2 (two) times daily with meals. Active carvedilol (COREG) 12.5 MG tablet Take 1 tablet (12.5 mg total) by mouth 2 (two) times daily. Active lamoTRIgine (LAMICTAL) 100 MG tablet Take 1 tablet (100 mg total) by mouth 2 (two) times daily. Active omeprazole (PRILOSEC) 40 MG capsule Take 1 capsule (40 mg total) by mouth daily. Active oxyCODONE immediate release (ROXICODONE) 5 MG immediate release tablet Take 1-2 tablets (5-10 mg total) by mouth every 4 (four) hours as needed for Pain. 5 Active albuterol sulfate HFA 108 (90 Base) MCG/ACT inhaler Inhale 1-2 puffs into the lungs every 4 (four) hours as needed for Wheezing or Shortness of breath. Active cefdinir (OMNICEF) 300 MG Cap capsule Take 1 capsule (300 mg total) by mouth 2 (two) times daily for 5 days. 10 capsule 5 01/28/20 25 Active Problems Patient Care Coordination No te Formatting of this note migh t be different from the original. PT precautions: R TKR, HTN, denies all others. Problem Noted Date Diagnosed Date Gram-negative pneumonia ([facility]/HCC) 2024 Encounters Date Type Department Care Team Description 01/23/2025 Hospital Follow-up Call [facility] Management [place] [address] Irais Frederick LPN Follow Up Call ([facility] 01/19-01/21/25) 01/19/2025 5:05 PM CDT - 01/21/2025 4:50 PM CDT Hospital Encounter [facility] Telemetry Unit A [address] [address] Ivy Gutierrez MD Elayyan, MD Deangelo Issa Jemila Maxine, MD Shortness Of Breath Discharge Disposition: Home or Self Care (Routine Discharge) 01/19/2025 Travel from Last 3 Months Social History Tobacco Use Types Packs/Day Years Used Date Smoking Tobacco: Every Day Cigarettes Smokeless Tobacco: Never Alcohol Use Standard Drinks/Week Comments Never 0 (1 standard drink = 0.6 oz pur e alcohol) [facility] Utilities Answer Date Recorded In the past 12 months has th e [employer], gas, oil, or water Yieldr threatened to shut off services in your home? No 01/19/2025 Humiliation, Afraid, Rape, and Kick questionnair e Answer Date Recorded Within the last year, have y ou been afraid of your partner or ex-partner? No 01/19/2025 Within the last year, have y ou been humiliated or emotionally abused in other ways by your partner or ex-partner? No Within the last year, have y ou been kicked, hit, slapped, or otherwise physically hurt by your partner or ex-partner? No 01/19/2025 Within the last year, have y ou been raped or forced to have any kind of sexual activity by your partner or ex-partner? No 01/19/2025 Overall Financial Resource Strain (CARDIA) Answe r Date Recorded How hard is it for you to pa y for the very basics like food, housing, medical care, and heating? Not hard at all 01/19/2025 Hunger Vital Sign Answer Date Recorded Within the past 12 months, y ou worried that your food would run out before you got the money to buy more. Never true 01/20/20 25 Within the past 12 months, t he food you bought just didn't last and you didn't have money to get more. Never true 01/19/2025 PRAPARE - Transportation Answer Date Re corded In the past 12 months, has l ack of transportation kept you from medical appointments or from getting medications? No 12/29 In the past 12 months, has l ack of transportation kept you from meetings, work, or from getting things needed for daily living? No 01/19/2025 Housing Stability Vital Sign Answer Adolfo e Recorded In the last 12 months, was t here a time when you were not able to pay the mortgage or rent on time? No 01/19/2025 In the past 12 months, how m any times have you moved where you were living? 0 01/19/2025 At any time in the past 12 m [facility], were you homeless or living in a senior care (including now)? No 01/19/2025 Sex and Gender Information Value Date Recorded Sex Assigned at Male 01/19/2025 5:01 PM CDT Legal Sex Male 11:29 PM CDT Gender Identity Not on file Sexual Orientation Not on file Last Filed Vital Signs Vital Sign Reading Time Taken Comments Blood Pressure 147/120 01/21/2025 3:59 PM CDT Pulse 102 01/21/2025 3:59 PM CDT Temperature 36.7 C (98.1 F) 01/21/2025 3:59 PM CDT Respiratory Rate 20 01/21/2025 3:59 PM CDT Oxygen Saturation 99% 01/21/2025 3:59 PM CDT Inhaled Oxygen Concentration - - Weight 79.8 kg (175 lb 14.4 oz) 01/21/2025 4:59 AM CDT Height 175.3 cm (5' 9 ) 01/19/2025 4:56 PM CDT Body Mass Index 25.98 01/19/2025 4:56 PM CDT Plan of Treatment Health Maintenance Due Date Last Done Comments Colorectal Cancer Screening Colonoscopy (10 Years) 1960 Annual Physical 1964 Hepatitis C 1979 Zoster Vaccines (1 of 2) 2011 COVID-19 Vaccine ( season) 2024 09/29/2023, 09/14/2021, 01/17/2021, Additional history exists DTaP, Tdap and Td Vaccines (3 - Td or Tdap) 09/29/2033 09/29/2023, 07/17/2017 Pneumococcal Vaccine: 50+ Years Completed 07/29/2022, 07/11/2019 RSV Immunization or 60+ Years Completed 08/23/2024 Meningococcal B Vaccine Aged Out No l onger eligible based on patient's age to complete this topic Meningococcal Vaccine Aged Out No scotty eugenio eligible based on patient's age to complete this topic RSV Immunizations Under 20 Months Aged Out No longer eligible based on patient's age to complete this topic Procedures Procedure Name Priority Date/Time Associated Diagnosis Comments POTASSIUM, SERUM STAT 01/21/2025 2:46 PM CDT PROCALCITONIN (PCT) Routine 01/21/2025 6 :38 AM CDT MAGNESIUM Routine 01/21/2025 6:38 AM CDT BASIC METABOLIC PANEL Routine 01/21/2025 6:38 AM CDT CBC W/DIFF AUTOMATED Routine 01/21/2025 6:38 AM CDT USE ECHOCARDIOGRAM W CON Today 01/20/2025 2:[address] CHEST W CON Today 01/20/2025 1:04 PM CDT TROPONIN, QUANT Routine 01/20/2025 6:27 AM CDT BASIC METABOLIC PANEL Routine 01/20/2025 6:27 AM CDT THYROID STIM HORMONE TSH Routine 01/20/2025 6:27 AM CDT HEMOGLOBIN, GLYCOSYLATED Routine 01/20/2025 6:27 AM CDT MAGNESIUM Routine 01/20/2025 6:27 AM CDT PROTHROMBIN TIME, VENOUS Routine 01/20/2025 6:27 AM CDT CBC W/DIFF AUTOMATED Routine 01/20/2025 6:27 AM CDT THYROXINE, FREE (FT4) Routine 01/20/2025 6:26 AM CDT PROCALCITONIN (PCT) Routine 01/20/2025 6 [address] SOFT TISSUE NECK W CON STAT 01/19/2025 8:22 PM CDT PRO-BRAIN NATRIURETIC PEPTIDE STAT 01/19/2025 6:33 PM CDT MAGNESIUM STAT 01/19/2025 6:33 PM CDT TROPONIN, QUANT STAT 01/19/2025 6:33 PM CDT COMPREHENSIVE METABOLIC PANEL STAT 01/19/2025 6:33 PM CDT CBC W/DIFF AUTOMATED STAT 01/19/2025 6:33 PM CDT ECG 12-LEAD Routine 01/19/2025 6:17 PM CDT XR CHEST PORTABLE STAT 01/19/2025 5:1 6 PM CDT from Last 3 Months Results * POTASSIUM, SERUM (01/21/2025 2:46 PM CDT) POTASSIUM S/P/B 4.2 3.5 - 5.1 MMOL/L 01/21/2025 3:20 PM CDT [facility] 01/21/2025 2:46 PM CDT us Akanksha Bright MD LABORATORY Final Result [facility] [address] [place] [address], [place] [phone] * PROCALCITONIN (PCT) (01/21/2025 6:38 AM CDT) Only the most recent of2 resultswithin the time period is included. Procalcitonin <0.05 0.00 - 0.49 NG/ML 01/21/2025 8:14 AM CDT [facility] 01/21/2025 6:38 AM CDT Akanksha Bright MD LABORATORY Final Result [facility] [address] [place] [address], [place] [phone] * (ABNORMAL) BASIC METABOLIC PANEL (01/21/2025 6:38 AM CDT) Only the most recent of2 resultswithin the time period is included. GLUCOSE 93 70 - 99 MG/DL 01/21/2025 7:13 AM CDT [facility] BUN 6(L) 7 - 18 MG/DL 01/21/2025 7:13 AM CDT [facility] CREATININE S/P/B 0.54(L) 0.7 - 1.3 MG/DL 01/21/2025 7:13 AM CDT [facility] SODIUM S/P/B 134(L) 136 - 145 MMOL/L 01/21/2025 7:13 AM CDT [facility] POTASSIUM S/P/B 3.0(LL) 3.5 - 5.1 MMOL/L 01/21/2025 7:13 AM CDT [facility] CHLORIDE S/P/B 100 97 - 115 MMOL/L 01/21/2025 7:13 AM CDT [facility] CO2 28.7 21 - 32 MMOL/L 01/21/2025 7:13 AM CDT [facility] CALCIUM S/P/B 8.7 8.5 - 10.1 MG/DL 01/21/2025 7:13 AM CDT [facility] ANION GAP 5.3 2 - 10 MMOL/L 01/21/2025 7:13 AM CDT [facility] BUN CREATININE RATIO 11.2 6 - 26 01/21/2025 7:13 AM CDT [facility] GFR ESTIMATE >90 >90 ML/MIN/1.7 3 M2 01/21/2025 7:13 AM CDT [facility] Comment: NOTE: eGFR is not calculated for patients <18 years of age or gender unknown. This is an estimated GFR calculation using the new CKD EPI creatinine equation without race and so does not require a correction factor for race. This estimated GFR should not be used for calculating drug doses. 01/21/2025 6:38 AM CDT Akanksha Bright MD LABORATORY Final Result [facility] [address] [place] [id number], [place] [phone] * (ABNORMAL) CBC W/DIFF AUTOMATED (01/21/2025 6:38 AM CDT) Only the most recent of3 resultswithin the time period is included. WBC 6.05 4.5 - 11.0 x10'3/uL 01/21/2025 7:08 AM CDT [facility] RBC 3.84(L) 4.70 - 6.10 x10'6/uL 01/21/2025 7:08 AM CDT [facility] HGB 11.0(L) 14.0 - 18.0 G/DL 01/21/2025 7:08 AM CDT [facility] HCT 32.6(L) 43.0 - 54.0 % 01/21/2025 7:08 AM CDT [facility] MCV 84.9 80.0 - 94.0 FL 01/21/2025 7:08 AM CDT [facility] MCH 28.6 27.0 - 31.0 PG 01/21/2025 7:08 AM CDT [facility] MCHC 33.7 32.0 - 36.0 G/DL 01/21/2025 7:08 AM CDT [facility] RDW 17.8(H) 11.5 - 14.5 % 01/21/2025 7:08 AM CDT [facility] PLT 190 130 - 400 x10'3/uL 01/21/2025 7:08 AM CDT [facility] MPV 9.5 9.3 - 12.2 FL 01/21/2025 7:08 AM CDT [facility] DIFFERENTIAL TYPE AUTOMATED DIFFERENTIAL 01/21/2025 7:08 AM CDT [facility] NEUTROPHILS % 62.8 % 01/21/2025 7:08 AM CDT [facility] LYMPHOCYTES % 17.5 % 01/21/2025 7:08 AM T [facility] MONOCYTES % 16.9 % 01/21/2025 7:08 AM CDT [facility] EOSINOPHILS 2.3 % 01/21/2025 7:08 AM CDT [facility] BASOPHILS 0.2 % 01/21/2025 7:08 AM CDT [facility] IMMATURE GRANS % 0.3 % 01/22/20 7:08 AM CDT [facility] ABS. NEUTROPHILS 3.80 1.80 - 7.70 x10'3/uL 01/21/2025 7:08 AM CDT [facility] ABS. LYMPHOCYTES 1.06 1.00 - 4.80 x10'3/uL 01/21/2025 7:08 AM CDT [facility] ABS. MONOCYTES 1.02(H) 0.30 - 0.82 x10'3/uL 01/21/2025 7:08 AM CDT [facility] ABS. EOSINOPHILS 0.14 0.04 - 0.54 x10'3/uL 01/21/2025 7:08 AM CDT [facility] ABS. BASOPHILS 0.01 0.01 - 0.08 x10'3/uL 01/21/2025 7:08 AM CDT [facility] ABS. IMMATURE GRANULOCYTES 0.02 0.00 - 0.49 x10'3/uL 01/21/2025 7:08 AM CDT [facility] 01/21/2025 6:38 AM CDT Akanksha Bright MD LABORATORY Final Result [facility] [address] [place] [address], [place] [phone] * MAGNESIUM (01/21/2025 6:38 AM CDT) Only the most recent of3 resultswithin the time period is included. MAGNESIUM 2.4 1.8 - 2.4 MG/DL 01/21/2025 7:13 AM CDT [facility] 01/21/2025 6:38 AM CDT Akanksha Bright MD LABORATORY Final Result [facility] [address] [place] [address], [place] [phone] * USE ECHOCARDIOGRAM W CON (01/20/2025 2:38 PM CDT) Anatomical Region Laterality Modality NA Echocardiogram 01/20/2025 1:49 PM CDT Narrative 01/20/2025 3:33 PM CDT Echocardiography Report Pat.Name: JOSAFAT CALVO Pat.ID: [id number] St.Date: 01/20/2025 Exam Time: 1:49:00 PM Study Type:ECHO WITH CARDIAC DOPPLER COMP Height: 69 in Weight: 235 lb BSA: 2.21 m2 Age: 13 1960,64Y Sex: M BP: 132/76 HR: 92 bpm Sonogrphr: Yun Ojeda Pat. Stat.:Inpatient Room: 414 Reason for Study:Congestive heart failure Procedures: 2D, M-mode, Doppler, Color Flow, Definity was used to enhance endocardial definition. The study quality is technically difficult. Race: B ++++++++++++++++++++++++++++++++++++ SUMMARY: ++++++++++++++++++++++++++++++++++++ The left ventricular systolic function is lower limits of normal. Estimated left ventricular ejection fraction is 50-55%. Mild concentric left ventricular hypertrophy. Left ventricular diastolic function is not reliably assessed. Mild to moderate mitral regurgitation. ++++++++++++++++++++++++++++++++++++ FINDINGS: ++++++++++++++++++++++++++++++++++++ LV: The left ventricular size is normal. The left ventricular systolic function is lower limits of normal. Estimated left ventricular ejection fraction is 50-55%. Mild concentric left ventricular hypertrophy. Left ventricular diastolic function is not reliably assessed. WM: Wall motion appears normal in all segments. RV: The right ventricular size is mildly enlarged. Right ventricular systolic function is normal. IVS: No evidence of ventricular septal defect. LA: The left atrial size is mildly enlarged. The left atrial volume is mildly increased (34- 41ml/M2). RA: Right atrial size is normal. IAS: Atrial septum appears intact. ELENA: No evidence of pericardial effusion. AO: Aorta is normal. PA: Estimated right atrial pressure of 3 mmHg. Unable to reliably quantitate pulmonary systolic pressure. SVn: Systemic veins are normal. AV: The aortic valve is trileaflet. No evidence of aortic valve stenosis. No evidence of aortic valve regurgitation. MV: Structurally normal mitral valve. Mild to moderate mitral regurgitation. No evidence of mitral stenosis. Mild thickening of mitral valve leaflets. PV: No evidence of pulmonic valve stenosis. No evidence of pulmonic regurgitation. Pulmonic valve not well visualized. TV: A trace of tricuspid regurgitation. No evidence of tricuspid valve stenosis. ++++++++++++++++++++++++++++++++++++ MEASUREMENTS: ++++++++++++++++++++++++++++++++++++ DOPPLER LVOT LVOTpkPG 4 mmHg LVOTmnPG 2 mmHg LVOTpkVel 100 cm/s (70-110) LVOT SV 71 ml LVOT TVI 17.2 cm Pulmonary Veins PVnpkVeld 31.9 cm/s PVnVs/Vd 2.1 PVnpkVels 66.6 cm/s AV Forward Flow AV TVI 19.8 cm AV pkPG 6 mmHg AV pkVel 120 cm/s (100-170)+ Area (TVI) 3.61 cm2 (3-5) AV mnPG 3 mmHg Area (Jb) 3.46 cm2 (3-5) MV Regurg Flow MV TVI 157 cm MV pkPG 116 mmHg MV mnPG 69 mmHg MV pkVel 538 cm/s (60-130)+* MV mnVel 372 cm/s MV Forward Flow MV E/A 0.5 MV pkA 110 cm/s MV pkE 60.3 cm/s (60-130) PV Forward Flow PV pkVel 95.4 cm/s (60-90)* PV AC 135 msec PV pkPG 4 mmHg Aortic Valve Aortic Valve Ar 1.63 Aortic Valve Ve 0.83 MV RF(C) Value 8 % MV RV(C) Value 6 ml MV VTI(ANNULUS) Time averaged p 39 cm/s VTI 116 mm PG mean 1 mmHg PV Antegrade Flow Acceleration Sl 537 cm/s2 Right Atrium Malone's Disk 20 Right Ventricle Right Ventricle 10.3 cm/s SV (MV) RF Value 77 ml 2D Left Ventricle LVIDd 6.3 cm (3.6-5.2)* LV ESV 82.7 ml LVIDs 4.7 cm (2.3-3.9)* LV ESV 65.4 ml LngAxd 9.03 cm LVESV BP 73.2 ml LngAxd 7.89 cm LV EF 54.1 % LV EDV 180 ml LV EF 51.2 % LV EDV 134 ml LV EF BP 55.9 % LVEDV BP 166 ml LV SV 97.3 ml LngAxs 7.55 cm LV SV 68.6 ml LngAxs 7.45 cm LV SV BP 92.8 ml LVPW LVPWd 1 cm Ventricular Septum IVSd 1.1 cm Left Atrium LA a-p 4.4 cm (2.8-3.4)* LA VOLBP 85.3 ml LVOT LVOT 2.3 cm LVOTArea 4.15 cm2 Mitral Valve MV trinity 2.9 cm (zsc -0.2) Ratios IVS LA Biplane LAVol I BP 38.6 ml/m2 RA Single Plane Right Atrium MO 24.3 mm Right Atrium Sy 53.6 ml Right Atrium Sy 47.8 mm Right Atrium Sy 24.3 ml/m2 Right Atrium Sy 18 cm2 Right Ventricle Right Ventricle 42 mm Right Ventricle 39 mm MMODE TA Tricuspid Annul 22.6 mm <Electronic Signature> 01/20/2025 03:33 PM Carissa Thapa M.D. Procedure Note Carissa Thapa MD - 01/20/2025 Echocardiography Report Pat.Name: JOSAFAT CALVO Pat.ID: [id number] .Date: 01/20/2025 Exam Time: 1:49:00 PM Study Type:ECHO WITH CARDIAC DOPPLER COMP Height: 69 in Weight: 235 lb BSA: 2.21 m2 Age: 13 1960,64Y Sex: M BP: 132/76 HR: 92 bpm Sonogrphr: Yun Ojeda Pat. Stat.:Inpatient Room: 414 Reason for Study:Congestive heart failure Procedures: 2D, M-mode, Doppler, Color Flow, Definity was used to enhance endocardial definition. The study quality is technically difficult. Race: B ++++++++++++++++++++++++++++++++++++ SUMMARY: ++++++++++++++++++++++++++++++++++++ The left ventricular systolic function is lower limits of normal. Estimated left ventricular ejection fraction is 50-55%. Mild concentric left ventricular hypertrophy. Left ventricular diastolic function is not reliably assessed. Mild to moderate mitral regurgitation. ++++++++++++++++++++++++++++++++++++ FINDINGS: ++++++++++++++++++++++++++++++++++++ LV: The left ventricular size is normal. The left ventricular systolic function is lower limits of normal. Estimated left ventricular ejection fraction is 50-55%. Mild concentric left ventricular hypertrophy. Left ventricular diastolic function is not reliably assessed. WM: Wall motion appears normal in all segments. RV: The right ventricular size is mildly enlarged. Right ventricular systolic function is normal. IVS: No evidence of ventricular septal defect. LA: The left atrial size is mildly enlarged. The left atrial volume is mildly increased (34- 41ml/M2). RA: Right atrial size is normal. IAS: Atrial septum appears intact. ELENA: No evidence of pericardial effusion. AO: Aorta is normal. PA: Estimated right atrial pressure of 3 mmHg. Unable to reliably quantitate pulmonary systolic pressure. SVn: Systemic veins are normal. AV: The aortic valve is trileaflet. No evidence of aortic valve stenosis. No evidence of aortic valve regurgitation. MV: Structurally normal mitral valve. Mild to moderate mitral regurgitation. No evidence of mitral stenosis. Mild thickening of mitral valve leaflets. PV: No evidence of pulmonic valve stenosis. No evidence of pulmonic regurgitation. Pulmonic valve not well visualized. TV: A trace of tricuspid regurgitation. No evidence of tricuspid valve stenosis. ++++++++++++++++++++++++++++++++++++ MEASUREMENTS: ++++++++++++++++++++++++++++++++++++ DOPPLER LVOT LVOTpkPG 4 mmHg LVOTmnPG 2 mmHg LVOTpkVel 100 cm/s (70-110) LVOT SV 71 ml LVOT TVI 17.2 cm Pulmonary Veins PVnpkVeld 31.9 cm/s PVnVs/Vd 2.1 PVnpkVels 66.6 cm/s AV Forward Flow AV TVI 19.8 cm AV pkPG 6 mmHg AV pkVel 120 cm/s (100-170)+ Area (TVI) 3.61 cm2 (3-5) AV mnPG 3 mmHg Area (Jb) 3.46 cm2 (3-5) MV Regurg Flow MV TVI 157 cm MV pkPG 116 mmHg MV mnPG 69 mmHg MV pkVel 538 cm/s (60-130)+* MV mnVel 372 cm/s MV Forward Flow MV E/A 0.5 MV pkA 110 cm/s MV pkE 60.3 cm/s (60-130) PV Forward Flow PV pkVel 95.4 cm/s (60-90)* PV AC 135 msec PV pkPG 4 mmHg Aortic Valve Aortic Valve Ar 1.63 Aortic Valve Ve 0.83 MV RF(C) Value 8 % MV RV(C) Value 6 ml MV VTI(ANNULUS) Time averaged p 39 cm/s VTI 116 mm PG mean 1 mmHg PV Antegrade Flow Acceleration Sl 537 cm/s2 Right Atrium Malone's Disk 20 Right Ventricle Right Ventricle 10.3 cm/s SV (MV) RF Value 77 ml 2D Left Ventricle LVIDd 6.3 cm (3.6-5.2)* LV ESV 82.7 ml LVIDs 4.7 cm (2.3-3.9)* LV ESV 65.4 ml LngAxd 9.03 cm LVESV BP 73.2 ml LngAxd 7.89 cm LV EF 54.1 % LV EDV 180 ml LV EF 51.2 % LV EDV 134 ml LV EF BP 55.9 % LVEDV BP 166 ml LV SV 97.3 ml LngAxs 7.55 cm LV SV 68.6 ml LngAxs 7.45 cm LV SV BP 92.8 ml LVPW LVPWd 1 cm Ventricular Septum IVSd 1.1 cm Left Atrium LA a-p 4.4 cm (2.8-3.4)* LA VOLBP 85.3 ml LVOT LVOT 2.3 cm LVOTArea 4.15 cm2 Mitral Valve MV trinity 2.9 cm (zsc -0.2) Ratios IVS LA Biplane LAVol I BP 38.6 ml/m2 RA Single Plane Right Atrium MO 24.3 mm Right Atrium Sy 53.6 ml Right Atrium Sy 47.8 mm Right Atrium Sy 24.3 ml/m2 Right Atrium Sy 18 cm2 Right Ventricle Right Ventricle 42 mm Right Ventricle 39 mm MMODE TA Tricuspid Annul 22.6 mm <Electronic Signature> 01/20/2025 03:33 PM Carissa Thapa M.D. us Rad Flores MD ECHO Final Resul t * CT CHEST W CON (01/20/2025 1:04 PM CDT) Anatomical Region Laterality Modality Chest Computed Tomogra phy 01/21/2025 7:27 AM CDT Impressions 01/21/2025 7:35 AM CDT IMPRESSION: Mild groundglass + infiltrate of the upper and lower lobes. Correlate for pneumonia. No pulmonary abscess. No pleural effusion. No pneumothorax. Nonmasslike tissue thickening of the left hilar region with attenuated bronchi. This may be the location of the stated lung cancer. Correlate with cancer imaging. Suggest a follow-up same CT in 1-3 months to restudy the lungs. Referred By: Interpreted By: Calvin Olivares MD, 01/21/2025 7:27 AM Narrative 01/21/2025 7:35 AM CDT [facility] [address] [place], [place] [address] Examination: CT CHEST W CON Exam time: 01/20/2025 12:54 PM INDICATION: LUNG CANCER, CONCERN FOR COMPLICATED PNEUMONIA COMPARISON(S): . TECHNIQUE: CT acquisition of the chest. Coronal and sagittal reformatted images along with an axial MIP provided from the source data. Coronal and sagittal reformatted images were obtained from the source data. A dose lowering technique was utilized for this procedure which may include but is not limited to dose reduction techniques, automated exposure control, and/or the use of iterative reconstruction in accordance with ALARA principle. Contrast: 100 ml isovue 300 FINDINGS: There is nonmasslike tissue thickening of the left hilar region with attenuated left upper lobe bronchi. See this best on sagittal. There is mild infiltrate and groundglass and bands of the left upper lobe. Mild groundglass and infiltrate in the right upper lobe and in the bilateral lower lobe. Some of this lung process may be background nonspecific fibrosis. Right middle lobe spared from lung process. 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 Airways are clear. Mild gas in the esophagus. No hiatal hernia. No pneumothorax. No pleural effusion. No aortic dissection. Tortuous aorta. Arterial and aortic plaque. No pulmonary artery embolism. Coronary artery disease. No pericardial effusion. Small left renal cyst. Small hepatic cyst. Calcified granulomata. Mild adenomatous adrenals. Mild gaseous stomach. Mild feces in the colon. No thyroid or neck mass. Small mediastinal lymph nodes. Small right hilar lymph nodes. These are considered reactive and indeterminate. Procedure Note Calvin Olivares MD - 01/21/[address] [address] Examination: CT CHEST W CON Exam time: 01/20/2025 12:54 PM INDICATION: LUNG CANCER, CONCERN FOR COMPLICATED PNEUMONIA COMPARISON(S): . TECHNIQUE: CT acquisition of the chest. Coronal and sagittal reformattedimages along with an axial MIP provided from the source data. Coronal andsagittal reformatted images were obtained from the source data. A doselowering technique was utilized for this procedure which may include butis not limited to dose reduction techniques, automated exposure control,and/or the use of iterative reconstruction in accordance with ALARAprinciple. Contrast: 100 ml isovue 300 FINDINGS: There is nonmasslike tissue thickening of the left hilar region withattenuated left upper lobe bronchi. See this best on sagittal. There ismild infiltrate and groundglass and bands of the left upper lobe. Mildgroundglass and infiltrate in the right upper lobe and in the bilaterallower lobe. Some of this lung process may be background nonspecificfibrosis. Right middle lobe spared from lung process. There is COPD withemphysema. Airways are clear. Mild gas in the esophagus. No hiatalhernia. No pneumothorax. No pleural effusion. No aortic dissection.Tortuous aorta. Arterial and aortic plaque. No pulmonary arteryembolism. Coronary artery disease. No pericardial effusion. Small leftrenal cyst. Small hepatic cyst. Calcified granulomata. Mild adenomatousadrenals. Mild gaseous stomach. Mild feces in the colon. No thyroid orneck mass. Small mediastinal lymph nodes. Small right hilar lymph nodes.These are considered reactive and indeterminate. IMPRESSION: Mild groundglass + infiltrate of the upper and lower lobes. Correlate forpneumonia. No pulmonary abscess. No pleural effusion. No pneumothorax. Nonmasslike tissue thickening of the left hilar region with attenuatedbronchi. This may be the location of the stated lung cancer. Correlatewith cancer imaging. Suggest a follow-up same CT in 1-3 months to restudy the lungs. Referred By: Interpreted By: Calvin Olivares MD, 01/21/2025 7:27 AM Akanksha Bright MD CT Final Result * HEMOGLOBIN, GLYCATED (01/20/2025 6:27 AM CDT) HGB A1C 5.5 <5.7 % 01/20/2025 9:33 AM CDT [facility] Comment: ADA GUIDELINES 2010 5.7 TO 6.4% INCREASED RISK OF DIABETES > OR = 6.5% CONSISTENT WITH DIABETES ESTIMATED AVG GLUCOSE 111 mg/dL 01/20/2025 9:33 AM CDT [facility] 01/20/2025 6:27 AM CDT Rad Flores MD LABORATORY Final Resul t Performing Organization Address City/[facility] Co de Phone Number [facility] [address] [place] [address], [place] [phone] * (ABNORMAL) PROTHROMBIN TIME, VENOUS (01/20/2025 6:27 AM CDT) Pathologist [facility] PROTIME 14.6(H) 10.2 - 12.9 SEC 01/20/2025 7:41 AM CDT [facility] INR 1.3 01/20/2025 7:41 AM CDT [facility] Comment: Recommended INR Therapeutic Goals: 2.0-3.0 Routine Therapy 2.5-3.5 Mechanical Prosthetic Valves (High Risk) 01/20/2025 6:27 AM CDT Rad Flores MD LABORATORY Final Resul t Performing Organization Address [facility] Co de Phone Number [facility] [address] [place] [address], [place] [phone] * TROPONIN, QUANT (01/20/2025 6:27 AM CDT) Only the most recent of2 resultswithin the time period is included. Pathologist [facility] TROPONIN I HIGH SENSITIVITY 6 <79 ng/L 01/20/2025 7:26 AM CDT [facility] Comment: HIGH DOSES OF BIOTIN, TROPONIN-SPECIFIC AUTOANTIBODIES, AND ANTIBODY THERAPY CONTAINING HAMA MAY INTERFERE WITH THIS TEST RESULT. CORRELATION TO CLINICAL HISTORY AND PRESENTATION RECOMMENDED. 01/20/2025 6:27 AM CDT Rad Flores MD LABORATORY Final Resul t Performing Organization Address City/[facility]/ZIP Co de Phone Number [facility] [address] [place] [address], * (ABNORMAL) THYROID STIM HORMONE, TSH (01/20/2025 6:27 AM CDT) TSH 0.346(L) 0.358 - 3.74 uIU/ML 01/20/2025 7:26 AM CDT [facility] Comment: HIGH DOSES OF BIOTIN MAY INTERFERE WITH THIS TEST RESULT. CORRELATION TO CLINICAL HISTORY AND PRESENTATION RECOMMENDED. 01/20/2025 6:27 AM CDT Rad Flores MD LABORATORY Final Resul t [facility] [address] [place] [address], * (ABNORMAL) THYROXINE, FREE (FT4) (01/20/2025 6:26 AM CDT) FREE T4 1.50(H) 0.76 - 1.46 NG/DL 01/20/2025 8:22 AM CDT [facility] 01/20/2025 6:26 AM CDT Akanksha Bright MD LABORATORY Final Result [facility] [address] [place] [address], * CT SOFT TISSUE NECK W CON (01/19/2025 8:22 PM CDT) Anatomical Region Laterality Modality Neck Computed Tomogra phy 01/19/2025 8:29 PM CDT Impressions 01/19/2025 8:40 PM CDT IMPRESSION: 1. Mild asymmetric prominence of the laryngeal mucosa epiglottis, uncertain significance with neoplasm to be excluded. Recommend direct visualization. 2. No acute abnormality identified in the neck. 3. At least moderate narrowing of the left ICA. 4. Multiple pulmonary abnormalities as above. Referred By: Interpreted By: Jhonny Bo MD, 01/19/2025 8:29 PM Narrative 01/19/2025 8:40 PM CDT [address] [address] EXAMINATION: CT SOFT TISSUE NECK W CON CLINICAL HISTORY: Shortness of breath COMPARISON: None DATE/TIME: 01/19/2025 8:01 PM TECHNIQUE: Multiplanar CT images of the neck were obtained. IV contrast: uneventful intravenous administration of 100 mL Isovue 300. Oral contrast: None. A dose lowering technique was used for this procedure, which may include, but is not limited to, dose reduction technique, automated exposure control, the use of iterative reconstruction, and ALARA (As Low As Reasonably Achievable) / Image Gently techniques. FINDINGS: Nonspecific linear opacities in the left upper lobe. Mild emphysema. Would question mild chronic fibrotic change in the upper lobes as well, not well evaluated due to motion artifact. There is mild mucosal soft tissue asymmetry in the larynx at and just above the glottis, appearing more pronounced anteriorly and on the left of midline. This is indeterminate with neoplasm to be excluded. Recommend ENT referral and direct visualization. Soft tissues of the pharynx appear unremarkable. No fluid collection. Parotid glands and submandibular glands are unremarkable. Airway is patent. Epiglottis appears normal. Mild narrowing of the left common carotid artery and at least mild narrowing of the right ICA. There is at least moderate stenosis of the left ICA about 2 cm above the bifurcation, not well quantified without angiographic technique. Could consider follow-up CT 8. 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 No cervical lymphadenopathy by size criteria. Cervical spondylosis is noted. Procedure Note Jhonny Bo MD - 01/19/2025 [address] [place], [place] [address] EXAMINATION: CT SOFT TISSUE NECK W CON CLINICAL HISTORY: Shortness of breath COMPARISON: None DATE/TIME: 01/19/2025 8:01 PM TECHNIQUE: Multiplanar CT images of the neck were obtained. IV contrast:uneventful intravenous administration of 100 mL Isovue 300. Oralcontrast: None. A dose lowering technique was used for this procedure, which may include,but is not limited to, dose reduction technique, automated exposurecontrol, the use of iterative reconstruction, and ALARA (As Low AsReasonably Achievable) / Image Gently techniques. FINDINGS: Nonspecific linear opacities in the left upper lobe. Mildemphysema. Would question mild chronic fibrotic change in the upper lobesas well, not well evaluated due to motion artifact. There is mild mucosal soft tissue asymmetry in the larynx at and justabove the glottis, appearing more pronounced anteriorly and on the left ofmidline. This is indeterminate with neoplasm to be excluded. RecommendENT referral and direct visualization. Soft tissues of the pharynx appearunremarkable. No fluid collection. Parotid glands and submandibularglands are unremarkable. Airway is patent. Epiglottis appears normal.Mild narrowing of the left common carotid artery and at least mildnarrowing of the right ICA. There is at least moderate stenosis of theleft ICA about 2 cm above the bifurcation, not well quantified withoutangiographic technique. Could consider follow-up CT 8. There isossification of the right stylohyoid ligament. No cervicallymphadenopathy by size criteria. Cervical spondylosis is noted. IMPRESSION: 1. Mild asymmetric prominence of the laryngeal mucosa epiglottis,uncertain significance with neoplasm to be excluded. Recommend directvisualization. 2. No acute abnormality identified in the neck. 3. At least moderate narrowing of the left ICA. 4. Multiple pulmonary abnormalities as above. Referred By: Interpreted By: Jhonny Bo MD, 01/19/2025 8:29 PM Ivy Gutierrez MD CT Final Resul t * (ABNORMAL) PRO-BRAIN NATRIURETIC PEPTIDE (01/19/2025 6:33 PM CDT) PRO-B TYPE NATRIURETIC PEPTIDE 258(H) <125 PG/ML 01/19/2025 7:11 PM CDT [facility] Comment: CUT POINTS ESTABLISHED BY INTERNATIONAL [employer]LL[employer] ON NT PROBNP (ICON) STUDY (2006). AGE INDEPENDENT: <300 PG/ML HAS A 99% NEGATIVE PREDICTIVE VALUE FOR EXCLUDING ACUTE CHF <50 YEARS: >450 PG/ML IS CONSISTENT WITH ACUTE CHF 50-75 YEARS: >900 PG/ML IS CONSISTENT WITH ACUTE CHF >75 YEARS: >1800 PG/ML IS CONSISTENT WITH ACUTE CHF IN PATIENTS WITH RENAL INSUFFICIENCY (GFR <60), >1200 PG/ML YIELDS A DIAGNOSTIC SENSITIVITY AND SPECIFICITY OF 89% AND 72% FOR ACUTE CHF. 01/19/2025 6:33 PM CDT us Zhane Knowles NP LABORATORY Final Result [facility] [address] [place] [address], * (ABNORMAL) COMPREHENSIVE METABOLIC PANEL (01/19/2025 6:33 PM CDT) Pathologist [facility] GLUCOSE 120(H) 70 - 99 MG/DL 01/19/2025 7:11 PM CDT [facility] BUN 9 7 - 18 MG/DL 01/19/2025 7:11 PM CDT [facility] CREATININE S/P/B 0.68(L) 0.7 - 1.3 MG/DL 01/19/2025 7:11 PM CDT [facility] SODIUM S/P/B 132(L) 136 - 145 MMOL/L 01/19/2025 7:11 PM CDT [facility] POTASSIUM S/P/B 3.5 3.5 - 5.1 MMOL/L 01/19/2025 7:11 PM CDT [facility] CHLORIDE S/P/B 97 97 - 115 MMOL/L 01/19/2025 7:11 PM CDT [facility] CO2 28.0 21 - 32 MMOL/L 01/19/2025 7:11 PM CDT [facility] CALCIUM S/P/B 8.9 8.5 - 10.1 MG/DL 01/19/2025 7:11 PM CDT [facility] BILIRUBIN TOTAL S/P/B 0.2 0.2 - 1.2 MG/DL 01/19/2025 7:11 PM CDT [facility] Comment: THIS ASSAY IS NOT RECOMMENDED FOR PATIENTS UNDERGOING TREATMENT WITH ELTROMBOPAG DUE TO THE POTENTIAL FOR FALSELY ELEVATED RESULTS. TOTAL PROTEIN S/P/B 6.9 6.4 - 8.2 G/DL 01/19/2025 7:11 PM CDT [facility] ALBUMIN S/P/B 3.2(L) 3.4 - 5.0 G/DL 01/19/2025 7:11 PM CDT [facility] AST 11(L) 15 - 37 U/L 01/19/2025 7:11 PM CDT [facility] ALT 17 16 - 60 U/L 01/19/2025 7:11 PM T [facility] ALKALINE PHOSPHATASE S/P/B 116 50 - 136 U/L 01/19/2025 7:11 PM T [facility] ANION GAP 7.0 2 - 10 MMOL/L 01/19/2025 7:11 PM CDT [facility] BUN CREATININE RATIO 13.3 6 - 26 01/19/2025 7:11 PM T [facility] A/G RATIO 0.9(L) 1.0 - 2.0 RATIO 01/19/2025 7:11 PM CDT [facility] GFR ESTIMATE >90 >90 ML/MIN/1.7 3 M2 01/19/2025 7:11 PM CDT [facility] Comment: NOTE: eGFR is not calculated for patients <18 years of age or gender unknown. This is an estimated GFR calculation using the new CKD EPI creatinine equation without race and so does not require a correction factor for race. This estimated GFR should not be used for calculating drug doses. 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 : 1960 Requested By: ZHANE KNOWLES Order Number: [id number] Reading MD: Ang Zheng Measurements Intervals [place] Rate: 78 P: 50 NC: 156 QRS: -6 QRSD: 95 T: 18 QT: 372 QTc: 426 Interpretive Statements SINUS RHYTHM MINIMAL VOLTAGE CRITERIA FOR LVH, CONSIDER NORMAL VARIANT [MEETS CRITERIA IN ONE OF: R(aVL), S(V1), R(V5), R(V5/V6)+S(V1)] Compared to ECG 10/29/2013 17:56:24 Sinus tachycardia no longer present T-wave abnormality no longer present Other ischemic changes, not STEMI Preliminary EKG Interpretation by Zhane Knowles NP Procedure Note Ang Zheng MD - 01/19/[address] Test Date: 2025-01-19 Pat Name: JOSAFAT CALVO Department: 41 Room: [facility] Gender: Male 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: [id number] : 1960 Requested By: ZHANE KNOWLES Order Number: [id number] Reading MD: Ang Zheng Measurements Intervals [place] Rate: 78 P: 50 NC: 156 QRS: -6 QRSD: 95 T: 18 QT: 372 QTc: 426 Interpretive Statements SINUS RHYTHM MINIMAL VOLTAGE CRITERIA FOR LVH, CONSIDER NORMAL VARIANT [MEETS CRITERIAIN ONE OF: R(aVL), S(V1), R(V5), R(V5/V6)+S(V1)] Compared to ECG 10/29/2013 17:56:24 Sinus tachycardia no longer present T-wave abnormality no longer present Other ischemic changes, not STEMI Preliminary EKG Interpretation by Zhane Knowles CLERICAL SECRETARY Zhane Knowles CLERICAL SECRETARY ECG ORDERABLES Final Result [facility] ([facility]) RAD * XR CHEST PORTABLE (01/19/2025 5:16 PM CDT) Anatomical Region Laterality Modality Chest Radiographic Joann ging 01/19/2025 5:21 PM CDT Impressions 01/19/2025 5:21 PM CDT Impression: 1. Minimal bibasilar opacity, favor atelectasis. 2. Pulmonary vascular congestion. Referred By: Interpreted By: Jhonny Bo MD, 01/19/2025 5:21 PM Narrative 01/19/2025 5:[address] PM [address] [address] Examination: Chest 1 view portable History: Shortness of breath DATE/TIME: 01/19/2025 5:00 PM Comparison: None Technique: AP upright portable view of the chest was obtained. Findings: Heart size is normal. Mild elevation of the left hemidiaphragm. There is pulmonary vascular congestion. Minimal linear bibasilar opacity, likely atelectasis. No convincing evidence of pneumonia. No pleural effusion identified. No pneumothorax. Procedure Note Jhonny Bo MD - 01/19/[address] [address] Examination: Chest 1 view portable History: Shortness of breath DATE/TIME: 01/19/2025 5:00 PM Comparison: None Technique: AP upright portable view of the chest was obtained. Findings: Heart size is normal. Mild elevation of the left hemidiaphragm.There is pulmonary vascular congestion. Minimal linear bibasilaropacity, likely atelectasis. No convincing evidence of pneumonia. Nopleural effusion identified. No pneumothorax. Impression: 1. Minimal bibasilar opacity, favor atelectasis. 2. Pulmonary vascular congestion. Referred By: Interpreted By: Jhonny Bo MD, 01/19/2025 5:21 PM Zhane Knowles NP GENERAL IMAGING Final Result from Last 3 Months Insurance [employer] Advance Directives * Full Code (Latest Code Status on File) Date Activated Date Inactivated Comments 01/20/2025 5:09 AM 01/21/2025 6:55 PM Care Teams Federal Aid Coordinator Relationship Specialty Start Date End Date Natalie Baum NP [address] [place] [address] PCP - General FAMILY PRACTICE 01/19/25
--- OUTSIDE RECORDS SUMMARY | 2025-02-25 07:36 | XMS_ITS | Encounter Summary ---
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 Gender Identity Not on file Sexual Orientation Not on file documented as of this encounter Plan of Treatment Not on file documented as of this encounter Visit Diagnoses Not on filedocumented in this encounter Additional Health Concerns Infection Onset Date Last Indicated Resolved Time COVID: Suspected 08/29/2024 08/29/2024 08/29/2024 1:59 PM CDT documented as of this encounter Care Teams Franchise Sales Representative Relationship Specialty Start Date End Date Matthew Mccabe MD [address] [place] [address] PCP - General Family Medicine 05/13/24 Stan Meza MD [address] [facility], [address] [place] [address] Medical Oncologist/Electron Beam Operator Medical Oncology 06/28/24 documented as of this encounter
--- OUTSIDE RECORDS SUMMARY | 2025-02-25 07:36 | XMS_ITS ---
Author Organization [facility] Address [address] [place] [address] Phone Care Team Providers Care Nylon Operator Name Role Phone SADIE JACK MD Unavailable Unavailable Plan of Treatment Instructions to patient Intervention and counseling on cessation of tobacco use : Patient recieved smoking cessation handout Last Documented On 0 8:27AM ; [facility] Intervention and counseling on cessation of tobacco use : Patient recieved smoking cessation handout Last Documented On 0 9:50AM ; [facility] Intervention and counseling on cessation of tobacco use : Patient recieved smoking cessation handout Last Documented On 0 11:06AM ; [facility] Intervention and counseling on cessation of tobacco use : Patient recieved smoking cessation handout Last Documented On 9 11:25AM ; [facility] Education and Decision Aids were provided during visit for: Pill Count: 0 Last Documented On 0 9:52AM ; [facility] Assessments Includes: Assessments for all patient encounters Findings Encounter Date Chronic pain syndrome PAIN MANAGEMENT FO LLOW UP with PAUL L BHARATHI [facility] 04/29/2020 Last Documented On 0 2:51PM ; [facility] Lumbar canal stenosis with n eurogenic claudication PAIN MANAGEMENT FOLLOW UP with PAUL L BHARATHI [facility] 04/29/2020 Last Documented On 0 2:51PM ; [facility] Myalgia PAIN MANAGEMENT FOLLOW UP with [facility] 04/29/2020 Last Documented On 0 2:51PM ; [facility] Myalgia PAIN MANAGEMENT FOLLOW UP with T KAHLIL L BHARATHI [facility] 04/29/2020 Last Documented On 0 2:51PM ; [facility] Sacroiliitis PAIN MANAGEMENT FOLLOW UP with T KAHLIL L BHARATHI [facility]- 04/29/2020 Last Documented On 0 2:51PM ; [facility] Chronic pain syndrome PAIN MANAGEMENT FO LLOW UP with PAUL L BHARATHI [facility]- 12/27/2019 Last Documented On 0 12:47PM ; [facility] Lumbar radiculopathy PAIN MANAGEMENT FOL LOW UP with PAUL L BHAARTHI [facility]P- 12/27/2019 Last Documented On 0 12:47PM ; [facility] Myalgia PAIN MANAGEMENT FOLLOW UP with T KAHLIL L BHARATHI [facility]- 12/27/2019 Last Documented On 0 12:47PM ; [facility] Sacroiliitis PAIN MANAGEMENT FOLLOW UP with T KAHLIL L BHARATHI [facility]- 12/27/2019 Last Documented On 0 12:47PM ; [facility] Chronic pain syndrome PAIN MANAGEMENT FO LLOW UP with PAUL L BHARATHI [facility] 11/28/2019 Last Documented On 0 11:13AM ; [facility] Lumbar radiculopathy PAIN MANAGEMENT FOL LOW UP with PAUL L BHARATHI [facility]- 11/28/2019 Last Documented On 0 11:13AM ; [facility] Myalgia PAIN MANAGEMENT FOLLOW UP with T KAHLIL L BHARATHI [facility]- 11/28/2019 Last Documented On 0 11:13AM ; [facility] Sacroiliitis PAIN MANAGEMENT FOLLOW UP with T KAHLIL L BHARATHI [facility] 11/28/2019 Last Documented On 0 11:13AM ; [facility] Chronic pain syndrome PAIN MANAGEMENT NE W CONSULT with PAUL L BHARATHI [facility]- 10/07/2019 Last Documented On 9 9:45AM ; [facility] Lumbar radiculopathy PAIN MANAGEMENT NEW CONSULT with PAUL L BHARATHI [facility]- 10/07/2019 Last Documented On 9 9:45AM ; [facility] Myalgia PAIN MANAGEMENT NEW CONSULT with PAUL L BHARATHI [facility] 10/07/2019 Last Documented On 9 9:45AM ; [facility] Sacroiliitis PAIN MANAGEMENT NEW CONSULT with PAUL DAVIS-BC 10/07/2019 Last Documented On 9 9:45AM ; [facility] Instructions Includes: Instructions for all patient encounters Instructions to patient Intervention and counseling on cessation of tobacco use : Patient recieved smoking cessation handout Last Documented On 0 8:27AM ; [facility] Intervention and counseling on cessation of tobacco use : Patient recieved smoking cessation handout Last Documented On 0 9:50AM ; [facility] Intervention and counseling on cessation of tobacco use : Patient recieved smoking cessation handout Last Documented On 0 11:06AM ; [facility] Intervention and counseling on cessation of tobacco use : Patient recieved smoking cessation handout Last Documented On 9 11:25AM ; [facility] Education and Decision Aids were provided during visit for: Pill Count: 0 Last Documented On 0 9:52AM ; [facility] Medical Equipment - Implanted Devices Includes: Current and historical Devices No Medical Equipment Recorded Medications Includes: Current and historical Medications Current Medications (continue as prescribed) Tylenol with Codeine #3 300-30 MG Oral Tablet 06/24/2020 Provider: PAUL GALLEGO Diagnosis: Radiculopathy, l umbar region 1 po BID prn Last Documented On 0 10:36AM By PAUL DAVIS-BC ; [facility] Gabapentin 600 MG Oral Tablet 05/26/2020 Provider: PAUL DAVIS -BC Diagnosis: Radiculopathy, l umbar region TAKE 1 TABLET BY MOUTH THREE TIMES DAILY. Last Documented On 0 2:54PM By PAUL DAVIS-BC ; [facility] Triamcinolone Acetonide 0.1% External Cream 10/07/2019 Provider: Diagnosis: Last Documented On 9 11:28AM By Faye MEJÍA ; [facility] Spironolactone 50 MG Oral Tablet 10/07/2019 Provider : Diagnosis: Last Documented On 9 11:27AM By Faye MEJÍA ; [facility] Omeprazole 40 MG Oral Capsule Delayed Release 10/07/20 Provider: Diagnosis: Last Documented On 9 11:27AM By Faye MEJÍA ; [facility] Ibuprofen 600 MG Oral Tablet 10/07/2019 Provider: Diagnosis: Last Documented On 9 11:27AM By Faye MEJÍA ; [facility] hydrOXYzine Pamoate 50 MG Oral Capsule 10/07/2019 Pr ovider: Diagnosis: Last Documented On 9 11:26AM By Faye MEJÍA ; [facility] Carvedilol 25 MG Oral Tablet 10/07/2019 Provider: Diagnosis: Last Documented On 9 11:26AM By Faye MEJÍA ; [facility] Past Medications on file Tylenol with Codeine #3 300-30 MG Oral Tablet 05/12/2020 - 06/23/2020 Provider: PAUL NUNEZ Diagnosis: Radiculopathy, l umbar region 1 po BID prn Last Documented On 0 10:31AM By PAUL NUNEZ ; [facility] Lyrica 150 MG Oral Capsule 04/29/2020 - 06/24/2020 Provider: PAUL NUNEZ Diagnosis: Spinal stenosis, lumbar region with neurogenic claudication 1 CAPSULE TWO TIMES A DAY Last Documented On 0 10:24AM By PAUL NUNEZ ; [facility] Gabapentin 600 MG Oral Tablet 04/10/2020 - 05/26/2020 Provider: PAUL NUNEZ Diagnosis: Radiculopathy, l umbar region TAKE 1 TABLET BY MOUTH THREE TIMES DAILYdo not fill before 04/14/20 Last Documented On 0 2:41PM By PAUL NUNEZ ; [facility] Gabapentin 600 MG Oral Tablet 03/16/2020 - 04/09/2020 Provider: PAUL NUNEZ Diagnosis: Radiculopathy, l umbar region TAKE 1 TABLET BY MOUTH THREE TIMES DAILY Last Documented On 0 7:19AM By PAUL DEMARCO ; [facility] Gabapentin 600 MG Oral Tablet 02/19/2020 - 03/16/2020 Provider: PAUL DEMARCO Diagnosis: Radiculopathy, l umbar region One tablet three times a day Last Documented On 0 2:26PM By PAUL DEMARCO ; [facility] Tylenol with Codeine #3 300-30 MG Oral Tablet 02/19/2020 - 05/11/2020 Provider: PAUL DEMARCO Diagnosis: Radiculopathy, l umbar region 1 po TID pr01/25/20 fill date Last Documented On 0 8:42AM By PAUL DEMARCO ; [facility] Tylenol with Codeine #3 300-30 MG Oral Tablet 01/23/2020 - 02/19/2020 Provider: PAUL DEMARCO Diagnosis: Radiculopathy, l umbar region 1 po BID pr01/25/20 fill date Last Documented On 0 2:53PM By PAUL DEMARCO ; [facility] Tylenol with Codeine #3 300-30 MG Oral Tablet 12/27/2019 - 01/22/2020 Provider: PAUL DEMARCO Diagnosis: Radiculopathy, l umbar region 1 po BID prn Last Documented On 0 12:53PM By PAUL NUNEZ ; [facility] Tylenol with Codeine #3 300-30 MG Oral Tablet 11/28/2019 - 12/27/2019 Provider: PAUL DEMARCO Diagnosis: Radiculopathy, l umbar region 1 po BID prn Last Documented On 0 10:22AM By PAUL DEMARCO ; [facility] Gabapentin 300 MG Oral Capsule 11/05/2019 - 04/29/2020 Provider: PAUL DEMARCOBC Diagnosis: Radiculopathy, l umbar region One tablet three times a day Last Documented On 0 8:29AM By Faye MEJÍA ; [facility] Gabapentin 300 MG Oral Capsule 10/07/2019 - 11/05/2019 Provider: PAUL NUNEZ Diagnosis: Radiculopathy, l umbar region as directed QHS x 3 days, BI D x 3 days then TID Last Documented On 0 12:20PM By PAUL NUNEZ ; [facility] Medications Administered Includes: Administered Medications in patient's chart No Administered Medications Recorded Results Includes: Results from 02/26/2024 through 02/25/2025 No Results Recorded For Specified Dates History of Present Illness History of Present Illness not supported for this document type No History of Present Illness Recorded Social History Description Last Updated Smoker 04/29/2020 Last Documented On 0 2:51PM ; [facility] Smoking status : Current everyday smoker 10/07/2019 Last Documented On 9 9:45AM ; [facility] Medical History Includes: Medical History in patient's chart Description Last Updated Reviewed and Unchanged 12/27/2019 Last Documented On 0 12:47PM ; [facility] Family History Includes: Family History in patient's [...] Last Documented On 0 8:29AM ; [facility] Lisinopril Allergy 10/07/2019 Active Last Documented On 0 8:29AM ; [facility] Insurance Includes: Active Insurance Policies Plan Name Member ID Group # Subscriber Relationship Effect jeannine Dates 1 - [place] [employer] [facility] [id number] RYLEE GRAY Self Clinical Notes Includes: Signed Clinical Notes starting from 11/18/2022 No Clinical Notes Recorded
--- OUTSIDE RECORDS SUMMARY | 2025-02-25 07:36 | XMS_ITS | Encounter Summary ---
Author Organization [facility] Address [address] [place] [address] Care Team Providers Care Ditch Repairer Name Role Phone Monica Tellez LICENSED MARRIAGE AND FAMILY THERAPIST-CALENDERING SUPERVISOR Primary Care Provi cristobal Ian Pollock MD Primary Care Provider [phone] Ian Pollock MD Primary Care Provider [phone] Ian Pollock MD Primary Care Provider [phone] Ian Pollock MD Primary Care Provider [phone] Ian Pollock MD Primary Care Provider [phone] Katina Casiano DO Unavailable [phone] Xavi ACOSTA MD, Fred R Primary Care Provider + Katina Casiano DO Unavailable [phone] Tracey Ang Unavailable [phone] Belkis Angel LICENSED MARRIAGE AND FAMILY THERAPIST-CALENDERING SUPERVISOR Primary Care Provider + Natalie Baum Primary Care Provider [phone] Reason for Visit * Reason Onset Date Comments Forms/questionnaires 07/12/2019 [facility] Encounter Details Date Type Department Care Team (Late st Contact Info) Description 07/12/2019 Telephone [facility] [address] [address] Monica Tellez, LICENSED MARRIAGE AND FAMILY THERAPIST-CALENDERING SUPERVISOR [address] [place] [address] Forms/questionnaires ([facility] transportation) Social History Tobacco Use Types Packs/Day [...] on file 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 Please advise. [phone] * Telephone Encounter - Shari Silvestre RN - 07/12/2019 1:11 PM CDT [facility] transportation form on your shelf. * Telephone Encounter - Hawa Allen - 07/12/2019 9:34 AM CDT Pt calling in to inform office that paperwork is on it's way from [facility] concerning Medicare rides so pt can get transportation to and from [facility] appts. CB# [phone] Routed to [facility] Nurse Communication for further review documented in this encounter Plan of Treatment Not on file documented as of this encounter Visit Diagnoses Not on filedocumented in this encounter Care Teams Ditch Repairer Relationship Specialty Start Date End Date Monica Tellez, LICENSED MARRIAGE AND FAMILY THERAPIST-CALENDERING SUPERVISOR PCP - General 07/03/19 11/13/19 Ian Pollock MD PCP - General 11/14/19 12/12/19 Ian Pollock MD PCP - General 12/13/19 05/25/20 Ian Pollock MD PCP - General 05/26/20 06/15/20 Ian Pollock MD [address] [facility] [place] [address] PCP - General 07/31/20 08/20/20 Ian Pollock MD [address] [facility] [place] [place] [address] PCP - General 08/21/20 05/29/23 Jameel Hurley III, MD [address] [place] [address] PCP - General Internal Medicine 06/05/23 08/28/23 Belkis Angel, LICENSED MARRIAGE AND FAMILY THERAPIST-CALENDERING SUPERVISOR [address] [place] [address] PCP - General Nurse Practitioner 08/29/23 05/05/24 Natalie Baum [address] [place] [address] PCP - General 05/06/24 Katina Casiano DO [address] DIV OF [facility] INTERNAL MEDIC[place], [place] Resident - PCP Internal Medicine 08/10/22 05/29/23 Katina Casiano DO [address] [facility] INTERNAL MEDIC[facility] [place], [place] Hospitalist 06/05/23 Tracey Ang PA [address] [facility] [address] [place] [address] Physician Steamer Gum Candy 08/15/23 documented as of this encounter
--- OUTSIDE RECORDS SUMMARY | 2025-02-25 07:36 | XMS_ITS | Encounter Summary ---
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
--- OUTSIDE RECORDS SUMMARY | 2025-02-25 07:36 | XMS_ITS | Clinical Summary ---
Author Organization [facility] Address [address] [place] [address] Phone Care Team Providers Care Patient Navigator Name Role Phone SADIE JACK MD Unavailable [...] On 0 10:36AM By PAUL DAVIS-ANAYA ; [facility] Gabapentin 600 MG Oral Tablet 05/26/2020 Provider: PAUL AMJANO Diagnosis: Radiculopathy, l umbar region TAKE 1 TABLET BY MOUTH THREE TIMES DAILY. Last Documented On 0 2:54PM By PAUL NUNEZ ; [facility] Triamcinolone Acetonide 0.1% External Cream 10/07/2019 Provider: Diagnosis: Last Documented On 9 11:28AM By Faye MEJÍA ; [facility] Spironolactone 50 MG Oral Tablet 10/07/2019 Provider : Diagnosis: Last Documented On 9 11:27AM By Faye MEJÍA ; [facility] Omeprazole 40 MG Oral Capsule Delayed Release 10/07/20 Provider: Diagnosis: Last Documented On 9 11:27AM By Faye MEJÍA ; [facility] Ibuprofen 600 MG Oral Tablet 10/07/2019 Provider: Diagnosis: Last Documented On 9 11:27AM By Faye MEJÍA ; [facility] hydrOXYzine Pamoate 50 MG Oral Capsule 10/07/2019 Pr ovider: Diagnosis: Last Documented On 9 11:26AM By Faye MEJÍA ; [facility] Carvedilol 25 MG Oral Tablet 10/07/2019 Provider: Diagnosis: Last Documented On 9 11:26AM By Faye MEJÍA ; [facility] Medications Administered Includes: Administered Medications from [...] Active Last Documented On 0 8:29AM ; [facility] Lisinopril Allergy 10/07/2019 Active Last Documented On 0 8:29AM ; [facility] Insurance Includes: Active Insurance Policies Plan Name Member ID Group # Subscriber Relationship Effect jeannine Dates - [facility] [id number] RYLEE GRAY Self Clinical Notes Includes: Clinical Notes from this encounter No Clinical Notes Recorded
--- OUTSIDE RECORDS SUMMARY | 2025-02-25 07:36 | XMS_ITS | Clinical Summary ---
Author Organization [facility] Address [address] [place] [address] Phone Care Team Providers Care Medtronics Technician Name Role Phone SADIE JACK MD [...] [facility] Ibuprofen 600 MG Oral Tablet 10/07/2019 Provider: Diagnosis: Last Documented On 9 11:27AM By Faye MEJÍA ; [facility] hydrOXYzine Pamoate 50 MG Oral Capsule 10/07/2019 Pr ovider: Diagnosis: Last Documented On 9 11:26AM By Faye MEJÍA ; [facility] Carvedilol 25 MG Oral Tablet 10/07/2019 Provider: Diagnosis: Last Documented On 9 11:26AM By Faye MEJÍA ; [facility] Medications Administered Includes: Administered Medications [...] Active Last Documented On 0 8:29AM ; [facility] Lisinopril Allergy 10/07/2019 Active Last Documented On 0 8:29AM ; [facility] Encounters Encounter Provider Location Date Check-In Time Check-Out Time Diagnosis NO SHOW PAUL DAVIS- 06/30/2020 8:28AM 11:59PM Insurance Includes: Active Insurance Policies Plan Name Member ID Group # Subscriber Relationship Effect jeannine Dates 1 - [facility] [id number] RYLEE GRAY Self Clinical Notes Includes: Clinical Notes from this encounter No Clinical Notes Recorded
--- OUTSIDE RECORDS SUMMARY | 2025-02-25 07:36 | XMS_ITS | Clinical Summary ---
Author Organization [facility] Address [address] [place] [address] Phone Care Team Providers Care Gas Plant Technician Name Role Phone SADIE JACK MD [...] prn Last Documented On 0 10:36AM By APUL DAVIS-ANAYA ; [facility] Gabapentin 600 MG Oral Tablet 05/26/2020 Provider: PAUL MAJANO Diagnosis: Radiculopathy, l umbar region TAKE 1 TABLET BY MOUTH THREE TIMES DAILY. Last Documented On 0 2:54PM By PAUL NUNEZ ; [facility] Triamcinolone Acetonide 0.1% External Cream 10/07/2019 Provider: Diagnosis: Last Documented On 9 11:28AM By Faye MEJÍA ; [facility] Spironolactone 50 MG Oral Tablet 10/07/2019 Provider : Diagnosis: Last Documented On 9 11:27AM By Faye MEJÍA ; [facility] Omeprazole 40 MG Oral Capsule Delayed Release 10/07/20 Provider: Diagnosis: Last Documented On 9 11:27AM By Faye MEJÍA ; [facility] Ibuprofen 600 MG Oral Tablet 10/07/2019 Provider: Diagnosis: Last Documented On 9 11:27AM By Faye MEJÍA ; [facility] hydrOXYzine Pamoate 50 MG Oral Capsule 10/07/2019 Pr ovider: Diagnosis: Last Documented On 9 11:26AM By Faye MEJÍA ; [facility] Carvedilol 25 MG Oral Tablet 10/07/2019 Provider: Diagnosis: Last Documented On 9 11:26AM By Faye MEJÍA ; [facility] Medications Administered Includes: Administered Medications from this encounter No Administered Medications Recorded Results Includes: Results discussed during this encounter No Results Recorded For Specified Dates History of Present Illness Includes: History of Present Illness from this encounter No History of Present Illness Recorded Social History Description Last Updated Smoker 04/29/2020 Last Documented On 0 3:51PM ; [facility] Smoking status : Current everyday smoker 10/07/2019 Last Documented On 0 3:51PM ; [facility] Medical History Includes: Medical History addressed during [...] Active Last Documented On 0 8:29AM ; [facility] Lisinopril Allergy 10/07/2019 Active Last Documented On 0 8:29AM ; [facility] Encounters Encounter Provider Location Date Check-In Time Check-Out Time Diagnosis RX ISSUE/REFILL PAUL DAVIS-ANAYA 06/23/2020 3:51PM 11:59PM Insurance Includes: Active Insurance Policies Plan Name Member ID Group # Subscriber Relationship Effect jeannine Dates 1 - [facility] [id number] RYLEE GRAY Self Clinical Notes Includes: Clinical Notes from this encounter No Clinical Notes Recorded
--- OUTSIDE RECORDS SUMMARY | 2025-02-25 07:37 | XMS_ITS ---
Author Organization [facility] Address [address] [place] [address] Care Team Providers Care Neurology Epilepsy Physician Name Role Phone Matthew Mccabe MD Primary Care Prov ider Stan Meza MD Unavailable [phone] Active Problems Problem Noted Date Diagnosed Date Hypokalemia 11/14/2024 Metastasis to bone 11/06/2024 Cancer related pain 08/15/2024 Prophylaxis for chemotherapy-induced neutropenia 08/01/2024 Primary cancer of left lower lobe of lung 2023 Cancer Staging:Clinical:Stage IVB(pM1c) - Unsigned Localized enlarged lymph nodes 05/28/2024 Hilar mass 05/28/2024 Current Treatment and Therapy Plans Hydration Therapy Plan* Plan Start Date:12/05/2024 [...] Medications Current Day (Day 1 , Cycle 5 - Planned for 02/20/2025) Next Day (Day 1, Cycle 6 - Planned for 03/13/2025) ALBUMIN-BOUND PACLItaxel (ABRAXANE)albumin-bound PACLItaxel (ABRAXANE) 5 mg/mLCARBOplatin (PARAPLATIN)CARBOplatin (PARAPLATIN) IVPB in 250 mLdexAMETHasone (DECADRON)pembrolizumab (KEYTRUDA) pembrolizumab (KEYTRUDA) 200 mg in sodium chloride 0.9% 100 mL pembrolizumab (KEYTRUDA) 200 mg in sodium chloride 0.9% 100 mL Zoledronic Acid Every 6 Weeks* Plan Start Date:11/28/2024 Plan Provider:Stan Meza MD Linked Problems Metastasis to bone (HCC)Prim beto cancer of left lower lobe of lung (HCC) Treatment Medications Current Day (Day 1 , Cycle 3 - Planned for 03/13/2025) Next Day (Day 1, Cycle 4 - Planned for 04/24/2025) No medications scheduled. No medications schedul ed. No medications scheduled. Past Treatment and Therapy Plans Oncology Chemotherapy Treatment Plan Name Start [...] Financial Stan Meza MD Radiation Treatments * Course [id number] 08/12/2024 - 08/19/2024 Treatment Period Energy Fraction Dose Fractions Total Dose Plans Planned SACRUM 08/12/2024 - 08/19/2024 400 5 / 2,000 STERNUM 08/12/2024 - 08/19/2024 400 5 / 2,000 Reference Points Delivered SACRUM_DPV 08/12/2024 - 08/19/2024 2,000 STERNUM_DPV 08/12/2024 - 08/19/2024 2,000 Lifetime Dose Tracking * Chemical Lifetime Dose Automatic Entry Manual Entr y DLP 2,725.9 mGycm 2,725.9 mGycm 0 mGycm
--- OUTSIDE RECORDS SUMMARY | 2025-02-25 07:37 | XMS_ITS | Referral Summary ---
Author Organization [facility] Address [address] [place] [address] Care Team Providers Care Environmental Attorney Name Role Phone Matthew Mccabe MD Primary Care Prov ider Stan Meza MD Unavailable [phone] Encounters Date Type Department Care Team Description 02/21/2025 Orders Only [facility] Oncology [address] [place] [phone] Sasha Hernandes RN Hyperthyroidism (Primary Dx) 02/20/[address] [facility] [address] [place] [address] Dagmar Pickard, LARRY 02/20/2025 9:30 AM CDT Infusion [facility] - Infusion [address] [place] [phone] Primary cancer of left lower lobe of lung (HCC) (Primary Dx) 02/20/2025 8:45 AM CDT Lab [facility] - Lab Collection [address] [place] [address] Primary cancer of left lower lobe of lung (HCC); Hypokalemia 02/20/2025 9:20 AM CDT Office Visit [facility] Oncology [address] [place] [phone] Stan Meza MD Primary cancer of left lower lobe of lung (HCC) (Primary Dx) 02/20/2025 7:11 AM CDT - 02/20/2025 11:59 PM CDT Hospital Encounter [facility]) [address] [place] [phone] Stan Meza MD Primary cancer of left lower lobe of lung (HCC); Metastasis to bone (HCC) Discharge Disposition: Discharge to home or self care 02/19/2025 Orders Only [facility] Oncology [address] [place] [address] [address] [place] [address] Sasha Hernandes RN Primary cancer of left lower lobe of lung (HCC) (Primary Dx) 02/12/2025 Social Work [facility] [address] [place] [address] [address] [place] [address] Sarah Brunner, COAL BRIQUETTE MACHINE OPERATOR 02/10/2025 Social Work [facility] [address] [place] [phone] Sarah Brunner, COAL BRIQUETTE MACHINE OPERATOR 01/30/[address] [facility] [address] [place] [address] 01/30/2025 Telephone [facility] [address] [place] [phone] Cindy Montelongo RN 01/30/2025 10:00 AM CDT Lab [facility] - Lab Collection [address] [place] [address] [address] [place] [address] Primary cancer of left lower lobe of lung (HCC); Hypokalemia 01/30/2025 11:00 AM CDT Office Visit [facility] [address] [place] [address] [address] [place] [address] Shari Quintana NP Primary cancer of left lower lobe of lung (HCC) (Primary Dx); Metastasis to bone (HCC); Hypokalemia 01/30/2025 12:00 PM CDT Infusion [facility] - Infusion [address] [place] [address] Floor [address] [place] [address] Metastasis to bone (HCC) (Primary Dx); Primary cancer of left lower lobe of lung (HCC); Hypokalemia 01/27/2025 8:11 PM CDT - 01/27/2025 11:59 PM CDT Hospital Encounter [facility] ([facility]) [facility] [place] [address] Diagnosis unknown Discharge Disposition: Discharge to home or self care 01/23/[address] [facility] [address] [place] [address] Dagmar Pickard, LARRY 01/22/2025 Social Work [facility] [address] [place] [address] Floor [address] [place] [address] Sarah Brunner, COAL BRIQUETTE MACHINE OPERATOR 01/22/2025 Telephone [facility] [address] [place] [address] Floor [address] [place] [address] Sasha Hernandes RN 01/16/2025 Social Work [facility] [address] [place] [address] Floor [address] [place] [address] Sarah Brunner, COAL BRIQUETTE MACHINE OPERATOR 01/09/2025 10:00 AM CDT Infusion [facility] - Infusion [address] [place] [address] Floor [address] [place] [address] 01/09/2025 Orders Only [facility] [address] [place] [address] Floor [address] [place] [address] Maddy Freire, ALYX 01/09/2025 8:30 AM CDT Infusion [facility] Infusion [address] [place], [place] [address] Floor [address] [place] [address] Hypokalemia (Primary Dx); Primary cancer of left lower lobe of lung (HCC) 01/09/2025 7:30 AM CDT Lab [facility] - Lab Collection [address] [place] [address] Floor [address] [place] [address] Primary cancer of left lower lobe of lung (HCC); Hypokalemia 01/08/2025 Social Work [facility] [address] [place] [address] Floor [address] [place] [address] Sarah Brunner, COAL BRIQUETTE MACHINE OPERATOR 01/03/2025 Documentation [facility] [address] [place] [address] Floor [address] [place] [address] Sarah Brunner, COAL BRIQUETTE MACHINE OPERATOR 01/02/2025 Social Work [facility] [address] [place] [address] [address] [place] [address] Sarah Brunner, COAL BRIQUETTE MACHINE OPERATOR 01/02/[address] [facility] [address] [place] [address] Dagmar Pickard, RD 01/02/2025 Orders Only [facility] [address] [place] [phone] Cindy Montelongo RN Primary cancer of left lower lobe of lung (HCC) (Primary Dx); Hypokalemia 12/30/2024 Social Work [facility] [address] [place] [phone] Sarah Burnner, COAL BRIQUETTE MACHINE OPERATOR 12/30/2024 Telephone [facility] [address] [place] [phone] Angelika Curran CMA 12/26/2024 7:45 AM FUEL AGENT Lab [facility] - Lab Collection [address] [place] [address] [address] [place] [address] Primary cancer of left lower lobe of lung (HCC); Hypokalemia; Metastasis to bone (HCC) 12/26/2024 9:30 AM FUEL AGENT Infusion [facility] - Infusion [address] [place] [address] Floor [address] [place] [address] Metastasis to bone (HCC) (Primary Dx); Primary cancer of left lower lobe of lung (HCC); Hypokalemia 12/26/2024 8:40 AM FUEL AGENT Office Visit [facility] [address] [place] [address] Floor [address] [place] [address] Stan Meza MD Primary cancer of left lower lobe of lung (HCC) (Primary Dx); Hypokalemia 12/20/2024 Documentation [facility] [address] [phone] Sarah Brunner, COAL BRIQUETTE MACHINE OPERATOR 12/19/2024 Telephone [facility] [address] [place] [phone] Sasha Hernandes RN 12/18/2024 Telephone [facility] [address] [place] [phone] Sasha Hernandes RN 12/13/2024 Telephone [facility] [address] [place] [phone] Sasha Hernandes RN 12/12/2024 Orders Only [facility] [address] [place] [phone] Sasha Hernandes RN Hypokalemia (Primary Dx); Primary cancer of left lower lobe of lung (HCC) 12/12/2024 8:08 AM FUEL AGENT - 12/12/2024 1:30 PM FUEL AGENT Emergency [facility] [address] [place] [phone] Julio Rodriguez MD Shortness of breath (Primary Dx); History of lung cancer; Pneumonia due to infectious organism, unspecified laterality, unspecified part of lung Discharge Disposition: Discharge to home or self care 12/10/2024 Orders Only [facility] [address] [place] [phone] Sasha Hernandes RN Primary cancer of left lower lobe of lung (HCC) (Primary Dx); Metastasis to bone (HCC) 12/09/2024 Documentation [facility] [address] [place] [phone] Sarah Brunner, COAL BRIQUETTE MACHINE OPERATOR 12/05/2024 Social Work [facility] [address] [place] [phone] Sarah Brunner, COAL BRIQUETTE MACHINE OPERATOR 12/05/[address] [facility] [address] [place] [phone] Dagmar Pickard, RD 12/05/2024 8:30 AM FUEL AGENT Lab [facility] - Lab Collection [address] [place] [address] Floor [address] [place] [address] Primary cancer of left lower lobe of lung (HCC); Hypokalemia 12/05/2024 10:30 AM FUEL AGENT Infusion [facility] Infusion [address] [place] [address] Floor [address] [place] [address] Primary cancer of left lower lobe of lung (HCC) (Primary Dx); Hypokalemia 12/05/2024 9:20 AM FUEL AGENT Office Visit [facility] [address] [place] [address] [address] [place] [address] Shari Quintana, LE Primary cancer of left lower lobe of lung (HCC) (Primary Dx); Hypokalemia 11/29/2024 Telephone [facility] [address] [place] [phone] Sasha Hernandes RN 11/28/2024 Telephone [facility] [address] [place] [phone] Sasha Hernandes RN 11/28/2024 Orders Only [facility] [address] [place] [phone] Sasha Hernandes RN Primary cancer of left lower lobe of lung (HCC) (Primary Dx); Hypokalemia 11/27/2024 Orders Only [facility] [address] [place] [phone] Sasha Hernandes RN Primary cancer of left lower lobe of lung (HCC) (Primary Dx) from Last 3 Months Allergies Active Allergy [...] 7.5 mg tablet daily 07/17/20 24 Active senna-docusate (PERICOLACE) 8.6-50 mgIndications: constipation [...] mg tablet every 12 hours Activ e calcium carbonate-amando min D3 1,250 mg (500 mg elemental)-400 unit tablet Take 1 tablet by mouth enterprise account manager before breakfast 30 tablet 3 09/25/20 24 Active ipratropium-al buteroL (DUO-NEB) 0.5-2.5 mg/3 mL nebulizer solution INHALE 3 ML VIA NEBULIZER FOUR TIMES DAILY NEEDED FOR SHORTNESS OF BREATH OR WHEEZING 10/18/20 24 Active potassium chloride ER (KLOR-CON) 20 mEq CR tablet Take 1 tablet (20 mEq total) by mouth daily 14 tablet 11/14/19 25 Active ondansetron (ZOFRAN) 8 mg tabletIndicati ons:Primary cancer of left lower lobe of lung (HCC),Prophyla xis for chemotherapy-i nduced neutropenia Take 1 tablet (8 mg total) by mouth every 8 (eight) hours as needed for nausea or vomiting Use if prochlorperazine does not stop nausea 24 tablet 3 01/15/20 25 Active oxyCODONE (ROXICODONE) 5 mg immediate release tabletIndicati ons:Pain,cance r related pain Take 1-2 tablets (5-10 mg total) by mouth every 4 (four) hours as needed for pain 120 tablet 01/23/20 25 Active morphine ER (MS CONTIN) 30 mg 12 hr tablet Take 1 tablet (30 mg total) by mouth every 12 (twelve) hours 60 tablet 01/23/20 25 Active doxycycline 100 mg tablet Take 1 tablet/capsule (100 mg total) by mouth 2 (two) times a day 01/20/20 25 Active food supplemt, lactose-reduce d 0.05 gram- 1.5 kcal/mL liquid Take 1 Can by mouth daily 01/31/20 25 Active predniSONE (DELTASONE) 20 mg tablet Take 3 tablets (60 mg) by mouth daily with breakfast for 7 days, THEN 2 tablets (40 mg) daily with breakfast for 7 days. 35 tablet 02/21/20 25 025 Active food supplemt, lactose-reduce d 0.05 gram- 1.5 kcal/mL liquid Take 1 Bottle by mouth daily 5688 mL 2 09/25/20 24 025 Discontin ued(Dupli cecilia order) Active Problems Problem Noted Date Diagnosed Date Hypokalemia 11/14/2024 Metastasis to bone 11/06/2024 Cancer related pain 08/15/2024 Prophylaxis for chemotherapy-induced neutropenia 08/01/2024 Primary cancer of left lower lobe of lung 2023 Cancer Staging:Clinical:Stage IVB(pM1c) - Unsigned Localized enlarged lymph nodes 05/28/2024 Hilar mass 05/28/2024 Immunizations Immunization Administration Dates Next Due Influenza, Quadrivalent, Hig [...] on file Legal Sex Male 6:04 PM FUEL AGENT Gender Identity Not on file Sexual Orientation Not on file Last Filed Vital Signs Vital Sign Reading Time Taken Comments Blood Pressure 144/92 02/20/2025 8:33 AM CDT Pulse 106 02/20/2025 8:32 AM CDT Temperature 36.7 C (98 F) 02/20/2025 8:32 AM CDT Respiratory Rate 19 02/20/2025 8:32 AM CDT Oxygen Saturation 96% 02/20/2025 8:32 AM CDT Inhaled Oxygen Concentration - - Weight 83.6 kg (184 lb 6.4 oz) 02/20/2025 8:32 A M CDT Height 175.3 cm (5' 9 ) 12/12/2024 8:02 AM FUEL AGENT Body Mass Index 27.23 12/12/2024 8:02 AM FUEL AGENT Plan of Treatment Not on file Procedures Procedure Name Priority Date/Time Associated Diagnosis Comments T3, FREE Routine 02/20/2025 8:15 AM CDT EGFR STAT 02/20/2025 8:15 AM CDT Primary cancer of left lower lobe of lung (HCC) Hypokalemia T4, FREE Routine 02/20/2025 8:15 AM CDT Primary cancer of left lower lobe of lung (HCC) DIFFERENTIAL AUTO Routine 02/20/2025 8:1 5 AM CDT Primary cancer of left lower lobe of lung (HCC) Hypokalemia THYROID FUNCTION CASCADE Routine 02/20/2025 8:15 AM CDT Primary cancer of left lower lobe of lung (HCC) CBC WITH AUTO DIFFERENTIAL Routine 02/20/2025 8:15 AM CDT Primary cancer of left lower lobe of lung (HCC) Hypokalemia COMPREHENSIVE METABOLIC PANEL STAT 02/20/2025 8:15 AM CDT Primary cancer of left lower lobe of lung (HCC) Hypokalemia CT CHEST ABDOMEN PELVIS W CONTRAST Schedule MINNIE, Read MINNIE (Appt Today, Awaiting Results) 02/20/2025 7:54 AM CDT Primary cancer of left lower lobe of lung (HCC) Metastasis to bone (HCC) EGFR STAT 01/30/2025 10:04 AM CDT Primary cancer of left lower lobe of lung (HCC) Hypokalemia DIFFERENTIAL AUTO Routine 01/30/2025 10: 04 AM CDT Primary cancer of left lower lobe of lung (HCC) Hypokalemia CBC WITH AUTO DIFFERENTIAL Routine 01/30/2025 10:04 AM CDT Primary cancer of left lower lobe of lung (HCC) Hypokalemia COMPREHENSIVE METABOLIC PANEL STAT 01/30/2025 10:04 AM CDT Primary cancer of left lower lobe of lung (HCC) Hypokalemia CT BODY OUTSIDE CONSULT Routine 01/27/2025 8:12 PM CDT Diagnosis unknown DIFFERENTIAL AUTO Routine 01/09/2025 7:2 3 AM CDT Primary cancer of left lower lobe of lung (HCC) Hypokalemia CBC WITH AUTO DIFFERENTIAL Routine 01/09/2025 7:23 AM CDT Primary cancer of left lower lobe of lung (HCC) Hypokalemia EGFR STAT 12/26/2024 7:39 AM FUEL AGENT Primary cancer of left lower lobe of lung (HCC) DIFFERENTIAL AUTO STAT 12/26/2024 7:3 9 AM FUEL AGENT Primary cancer of left lower lobe of lung (HCC) Hypokalemia CBC WITH AUTO DIFFERENTIAL STAT 12/26/2024 7:39 AM FUEL AGENT Primary cancer of left lower lobe of lung (HCC) Hypokalemia COMPREHENSIVE METABOLIC PANEL STAT 12/26/2024 7:39 AM FUEL AGENT Primary cancer of left lower lobe of lung (HCC) PHOSPHORUS STAT 12/26/2024 7:39 AM FUEL AGENT Primary cancer of left lower lobe of lung (HCC) Metastasis to bone (HCC) MAGNESIUM STAT 12/26/2024 7:39 AM FUEL AGENT Primary cancer of left lower lobe of lung (HCC) Metastasis to bone (HCC) CT HEAD WO CONTRAST ED 12/12/2024 1 1:[address] CHEST ABDOMEN PELVIS W CONTRAST ED 12/12/2024 11:00 AM FUEL AGENT TROPONIN I HIGH-SENSITIVITY 2-HOUR Timed 12/12/2024 10:33 AM FUEL AGENT XR CHEST PA LATERAL 2 VIEWS ED 12/12/2024 10:28 AM FUEL AGENT PRO B-TYPE NATRIURETIC PEPTIDE STAT 12/12/2024 9:35 AM FUEL AGENT INFLUENZA A/B, RSV, AND COVID-19 PCR STAT 12/12/2024 9:35 AM FUEL AGENT EGFR STAT 12/12/2024 8:45 AM FUEL AGENT DIFFERENTIAL AUTO STAT 12/12/2024 8:4 5 AM FUEL AGENT TROPONIN I HIGH-SENSITIVITY SERIES (BASELINE, 2HR, 4HR, 6HR) STAT 12/12/2024 8:45 AM FUEL AGENT CBC WITH AUTO DIFFERENTIAL STAT 12/12/2024 8:45 AM FUEL AGENT COMPREHENSIVE METABOLIC PANEL STAT 12/12/2024 8:45 AM FUEL AGENT ECG 12-LEAD STAT 12/12/2024 8:16 AM FUEL AGENT T3, FREE Routine 12/05/2024 9:34 AM FUEL AGENT EGFR STAT 12/05/2024 9:34 AM FUEL AGENT Primary cancer of left lower lobe of lung (HCC) T4, FREE Routine 12/05/2024 9:34 AM FUEL AGENT Primary cancer of left lower lobe of lung (HCC) Hypokalemia DIFFERENTIAL AUTO STAT 12/05/2024 9:3 4 AM FUEL AGENT Primary cancer of left lower lobe of lung (HCC) CBC WITH AUTO DIFFERENTIAL STAT 12/05/2024 9:34 AM FUEL AGENT Primary cancer of left lower lobe of lung (HCC) COMPREHENSIVE METABOLIC PANEL STAT 12/05/2024 9:34 AM FUEL AGENT Primary cancer of left lower lobe of lung (HCC) THYROID FUNCTION CASCADE Routine 12/05/2024 9:34 AM FUEL AGENT Primary cancer of left lower lobe of lung (HCC) Hypokalemia from Last 3 Months Results * eGFR (02/20/2025 8:15 AM CDT) eGFR >90 >=60 mL/min/1. 73 [...] interpretive data was last reviewed 2021. Blood 02/20/2025 8:15 AM CDT 02/20/2025 8:24 AM CDT us Stan Meza MD LAB BLOOD ORDERABLES Yolette banda Result [facility] Department [place] [address] * (ABNORMAL) Differential, auto (02/20/2025 8:15 AM CDT) Neutrophil abs 4.30 1.50 - 6.50 K/cumm Comment:Testing performed by : [facility], [address] [place] [phone] Lymphocyte abs 0.63(L) 0.80 - 3.30 K/cumm [facility] Comment:Testing performed by : [facility], [address] [place] [phone] Monocyte abs 0.71 0.20 - 0.80 K/cumm [facility] Comment:Testing performed by : [facility], [address] [place] [phone] Eosinophil abs 0.39 0.00 - 0.50 K/cumm [facility] Comment:Testing performed by : [facility], [address] [place] [phone] Basophil abs 0.04 0.00 - 0.10 K/cumm [facility] Comment:Testing performed by : [facility], [address] [place] [phone] Neutrophil pct 70.7 % [facility] Comment: Interpretive Data Percent cell count reference ranges are not reported, since discordance with absolute values may lead to misinterpretation of CBC data. Current Interpretive Data was last revised on 2018. Testing performed by: [facility], [address] [place] [phone] Lymphocyte pct 10.4 % [facility] Comment: Interpretive Data Percent cell count reference ranges are not reported, since discordance with absolute values may lead to misinterpretation of CBC data. Current Interpretive Data was last revised on 2018. Testing performed by: [facility], [address] [place] [phone] Monocyte pct 11.7 % [facility] Comment: Interpretive Data Percent cell count reference ranges are not reported, since discordance with absolute values may lead to misinterpretation of CBC data. Current Interpretive Data was last revised on 2018. Testing performed by: [facility], [address] [place] [phone] Eosinophil pct 6.4 % [facility] Comment: Interpretive Data Percent cell count reference ranges are not reported, since discordance with absolute values may lead to misinterpretation of CBC data. Current Interpretive Data was last revised on 2018. Testing performed by: [facility], [address] [place] [phone] Basophil pct 0.7 % [facility] Comment: Interpretive Data Percent cell count reference ranges are not reported, since discordance with absolute values may lead to misinterpretation of CBC data. Current Interpretive Data was last revised on 2018. Testing performed by: [facility], [address] [place] [phone] Blood 02/20/2025 8:15 AM CDT 02/20/2025 8:22 AM CDT Stan Meza MD LAB BLOOD ORDERABLES Yolette l Result Performing Organization Address City/[facility] Co de Phone Number [facility] [place] [address] * (ABNORMAL) Thyroid Function [place] (02/20/2025 8:15 AM CDT) Pathologist [facility] TSH 0.18(L) 0.30 - 4.20 mcIUnit/mL Blood 02/20/2025 8:15 AM CDT 02/20/2025 8:24 AM CDT Stan Meza MD LAB BLOOD ORDERABLES Yolette l Result Performing Organization Address [facility] de Phone Number [facility] Department [place] [address] * (ABNORMAL) CBC with auto differential (02/20/2025 8:15 AM CDT) [facility] WBC 6.08 3.80 - 9.90 K/cumm Comment:Testing performed by : [facility], [address] [place] [phone] Hgb 11.3(L) 13.0 - 17.5 g/dL [facility] Comment:Testing performed by : [facility], [address] [place] [phone] Hct 34.8(L) 38.9 - 50.3 % [facility] Comment:Testing performed by : [facility], [address] [place] [phone] Plt 207 150 - 400 K/cumm [facility] Comment:Testing performed by : [facility], [address] [place] [phone] MPV 7.3 6.8 - 10.4 fL [facility] Comment:Testing performed by : [facility], [address] [place], [place] [phone] RBC 4.01(L) 4.30 - 5.80 M/cumm [facility] Comment:Testing performed by : [facility], [address] [place], [place] [phone] MCV 86.6 81.3 - 96.4 fL [facility] Comment:Testing performed by : [facility], [address] [place], [place] [id number] MCH 28.2 27.1 - 33.3 pg [facility] Comment:Testing performed by : [facility], [address] [place], [place] [phone] MCHC 32.6 32.3 - 35.7 g/dL [facility] Comment:Testing performed by : [facility], [address] [place], [place] [id number] RDW CV 18.4(H) 11.1 - 14.9 % [facility] Comment:Testing performed by : [facility], [address] [place], [place] [id number] NRBC abs 0.00 0.00 - 0.01 K/cumm [facility] Comment:Testing performed by : [facility], [address] [place], [place] [id number] Blood 02/20/2025 8:15 AM CDT 02/20/2025 8:22 AM CDT us Stan Meza MD LAB BLOOD ORDERABLES Yolette banda Result CHEMA [facility] Department [place] [address] * T3, free (02/20/2025 8:15 AM CDT) Free T3 3.3 2.0 - 4.4 pg/mL Blood 02/20/2025 8:1 5 AM CDT 02/20/2025 8:24 AM CDT Narrative [facility] - 02/20/2025 9:44 AM CDT This test was reflexed from a T4 result. us Stan Meza MD LAB BLOOD ORDERABLES Yolette l Result Performing Organization Address City/[facility] Co de Phone Number [facility] [place] [address] * T4, free (02/20/2025 8:15 AM CDT) [facility] Free T4 1.39 0.90 - 1.70 ng/dL Blood 02/20/2025 8:15 AM CDT 02/20/2025 8:24 AM CDT Narrative [facility] - 02/20/2025 9:19 AM CDT This test was reflexed from a TSH result. Stan Meza MD LAB BLOOD ORDERABLES Yolette l Result Performing Organization Address [facility] de Phone Number [facility] [place] [address] * (ABNORMAL) Comprehensive metabolic panel (02/20/2025 8:15 AM CDT) [facility] Sodium 137 135 - 145 mmol/L Potassium, pl 3.7 3.3 - 4.9 mmol/L [facility] Chloride 100 97 - 110 mmol/L [facility] CO2 25 22 - 32 mmol/L [facility] Anion gap 12 2 - 15 mmol/L [facility] BUN 5(L) 6 - 25 mg/dL [facility] Creatinine 0.53(L) 0.80 - 1.30 mg/dL [facility] Glucose 120 70 - 199 mg/dL [facility] Comment: Interpretive Data Fasting glucose >/= 126 [...] interpretive data was last revised 2022. Calcium 9.7 8.5 - 10.3 mg/dL [facility] Bilirubin, total 0.3 0.1 - 1.2 mg/dL [facility] Protein, pl 7.3 6.5 - 8.5 g/dL [facility] Albumin 3.9 3.5 - 5.0 g/dL [facility] Alk phos 129 40 - 130 Units/L [facility] ALT 14 7 - 55 Units/L [facility] AST 19 10 - 50 Units/L [facility] Blood 02/20/2025 8:15 AM CDT 02/20/2025 8:24 AM CDT us Stan Meza MD LAB BLOOD ORDERABLES Yolette banda Result Performing Organization Address City/State/[facility] Co de Phone Number [facility] Department [place] [address] * CT Chest Abdomen Pelvis W Contrast (02/20/2025 7:54 AM CDT) Anatomical Region Laterality Modality Body N/A Computed Tomogra phy 02/20/2025 8:03 AM CDT Impressions 02/20/2025 8:03 AM CDT 1. Post treatment changes within the left upper lobe. Of note there are new areas of asuncion-bronchovascular groundglass particularly within the right upper lobe and right middle lobe which could represent a component of organizing pneumonia. 2. Slight decrease in size of left hilar soft tissue/lymphadenopathy consistent with evolving posttreatment change. Continued attention on follow-up imaging is recommended. 3. Unchanged thickening of the adrenal glands compatible with treated disease. 4. Stable osseous metastatic disease. Electronically signed by: Orville Garg M.D. Narrative 02/20/2025 8:03 AM CDT EXAMINATION: Computed tomography of the chest abdomen and pelvis with intravenous contrast HISTORY: Non-small cell lung cancer TECHNIQUE: Transaxial computed tomographic images of the chest abdomen and pelvis were obtained with intravenous contrast according to the standard protocol after the uneventful administration of 100 mL Opti-Ray 350 intravenous contrast. COMPARISON: 01/27/2025, 12/12/2024 FINDINGS: There is mild limitation of the examination secondary to motion. There is evolving posttreatment changes within the left upper lobe. When compared to the prior examination there is slightly increased and areas of peribronchial vascular groundglass seen within the right upper lobe as well as the lingula. This could represent findings of organizing pneumonia. Some areas of peripheral groundglass is seen within the right lung base as well which appear largely unchanged. No supraclavicular or axillary lymphadenopathy. Soft tissue thickening within the region of the left hilum adjacent to branches of the left upper lobe pulmonary artery on image 54 appears slightly decreased in compared to the prior examination. On image 57 the largest dimension measures 1.3 cm, previously 1.6 cm. A few prominent lymph nodes in the right hilum appears slightly decreased as well. No mediastinal lymphadenopathy is appreciated. The heart size is normal. There is no pericardial effusion. Unchanged hypoattenuating lesion within hepatic segment 4B. No new or enlarging liver lesions. No biliary ductal dilatation. The gallbladder is normal. The portal vein is patent. Normal appearance of the pancreas. Unchanged mild thickening of both adrenal glands which likely represents treated metastatic disease. The spleen is normal appearing. No hydronephrosis involving either kidney. There is a cyst within the superior pole of the left kidney. The bladder is mildly thick-walled which may related to chronic outlet obstruction the setting of enlarged prostate. There is no abnormal bowel wall thickening or dilatation. No abdominal or pelvic lymphadenopathy. No free fluid or gas. Aorta is branches are atherosclerotic. Bone windows show a healing pathologic fracture of the sternum. Other osseous lesions are stable. There are healed posterior rib fractures. There is chronic compression of the superior endplate of L2. Procedure Note Orville Garg MD - 02/20/2025 EXAMINATION: Computed tomography of the chest abdomen and pelvis with intravenous contrast HISTORY: Non-small cell lung cancer TECHNIQUE: Transaxial computed tomographic images of the chest abdomen and pelvis were obtained with intravenous contrast according to the standard protocol after the uneventful administration of 100 mL Opti-Ray 350 intravenous contrast. COMPARISON: 01/27/2025, 12/12/2024 FINDINGS: There is mild limitation of the examination secondary to motion. There is evolving posttreatment changes within the left upper lobe. When compared to the prior examination there is slightly increased and areas of peribronchial vascular groundglass seen within the right upper lobe as well as the lingula. This could represent findings of organizing pneumonia. Some areas of peripheral groundglass is seen within the right lung base as well which appear largely unchanged. No supraclavicular or axillary lymphadenopathy. Soft tissue thickening within the region of the left hilum adjacent to branches of the left upper lobe pulmonary artery on image 54 appears slightly decreased in compared to the prior examination. On image 57 the largest dimension measures 1.3 cm, previously 1.6 cm. A few prominent lymph nodes in the right hilum appears slightly decreased as well. No mediastinal lymphadenopathy is appreciated. The heart size is normal. There is no pericardial effusion. Unchanged hypoattenuating lesion within hepatic segment 4B. No new or enlarging liver lesions. No biliary ductal dilatation. The gallbladder is normal. The portal vein is patent. Normal appearance of the pancreas. Unchanged mild thickening of both adrenal glands which likely represents treated metastatic disease. The spleen is normal appearing. No hydronephrosis involving either kidney. There is a cyst within the superior pole of the left kidney. The bladder is mildly thick-walled which may related to chronic outlet obstruction the setting of enlarged prostate. There is no abnormal bowel wall thickening or dilatation. No abdominal or pelvic lymphadenopathy. No free fluid or gas. Aorta is branches are atherosclerotic. Bone windows show a healing pathologic fracture of the sternum. Other osseous lesions are stable. There are healed posterior rib fractures. There is chronic compression of the superior endplate of L2. IMPRESSION: 1. Post treatment changes within the left upper lobe. Of note there are new areas of asuncion-bronchovascular groundglass particularly within the right upper lobe and right middle lobe which could represent a component of organizing pneumonia. 2. Slight decrease in size of left hilar soft tissue/lymphadenopathy consistent with evolving posttreatment change. Continued attention on follow-up imaging is recommended. 3. Unchanged thickening of the adrenal glands compatible with treated disease. 4. Stable osseous metastatic disease. Electronically signed by: Orville Garg M.D. us Stan Meza MD IM CT PROCEDURES Final R esult * eGFR (01/30/2025 10:04 AM CDT) eGFR >90 >=60 mL/min/1. 73 [...] interpretive data was last reviewed 2021. Blood 01/30/2025 10:0 4 AM CDT 01/30/2025 10:13 AM CDT us Stan Meza MD LAB BLOOD ORDERABLES Yolette banda Result CHEMA RESENDIZ [facility] Department [place] [address] * (ABNORMAL) Differential, auto (01/30/2025 10:04 AM CDT) Pathologist [facility] Neutrophil abs 8.93(H) 1.50 - 6.50 K/cumm Comment:Testing performed by : [facility], [address] [place] [phone] Lymphocyte abs 0.70(L) 0.80 - 3.30 K/cumm [facility] Comment:Testing performed by : [facility], [address] [place] [phone] Monocyte abs 0.48 0.20 - 0.80 K/cumm [facility] Comment:Testing performed by : [facility], [address] [place] [address] [place] [phone] Eosinophil abs 0.01 0.00 - 0.50 K/cumm [facility] Comment:Testing performed by : [facility], [address] [place] [phone] Basophil abs 0.01 0.00 - 0.10 K/cumm [facility] Comment:Testing performed by : [facility], [address] [place] [phone] Neutrophil pct 88.2 % [facility] Comment: Interpretive Data Percent cell count reference ranges are not reported, since discordance with absolute values may lead to misinterpretation of CBC data. Current Interpretive Data was last revised on 2018. Testing performed by: [facility], [address] [place] [phone] Lymphocyte pct 6.9 % [facility] Comment: Interpretive Data Percent cell count reference ranges are not reported, since discordance with absolute values may lead to misinterpretation of CBC data. Current Interpretive Data was last revised on 2018. Testing performed by: [facility], [address] [place] [phone] Monocyte pct 4.7 % [facility] Comment: Interpretive Data Percent cell count reference ranges are not reported, since discordance with absolute values may lead to misinterpretation of CBC data. Current Interpretive Data was last revised on 2018. Testing performed by: [facility], [address] [place] [phone] Eosinophil pct 0.1 % [facility] Comment: Interpretive Data Percent cell count reference ranges are not reported, since discordance with absolute values may lead to misinterpretation of CBC data. Current Interpretive Data was last revised on 2018. Testing performed by: [facility], [address] [place] [phone] Basophil pct 0.1 % [facility] Comment: Interpretive Data Percent cell count reference ranges are not reported, since discordance with absolute values may lead to misinterpretation of CBC data. Current Interpretive Data was last revised on 2018. Testing performed by: [facility], [address] [place], [place] [phone] Blood 01/30/2025 10:0 4 AM CDT 01/30/2025 10:09 AM CDT Stan Meza MD LAB BLOOD ORDERABLES Yolette veronika Result [facility] Department [place] [address] * (ABNORMAL) CBC with auto differential (01/30/2025 10:04 AM CDT) WBC 10.13(H) 3.80 - 9.90 K/cumm Comment:Testing performed by : [facility], [address] [place] [address] Hgb 11.0(L) 13.0 - 17.5 g/dL [facility] Comment:Testing performed by : [facility], [address] [place] [address] Hct 33.3(L) 38.9 - 50.3 % [facility] Comment:Testing performed by : [facility], [address] [place] [address] Plt 206 150 - 400 K/cumm [facility] Comment:Testing performed by : [facility], [address] [place] [address] MPV 6.6(L) 6.8 - 10.4 fL [facility] Comment:Testing performed by : [facility], [address] [place] [address] RBC 3.82(L) 4.30 - 5.80 M/cumm [facility] Comment:Testing performed by : [facility], [address] [place] [address] MCV 87.2 81.3 - 96.4 fL [facility] Comment:Testing performed by : [facility], [address] [place] [address] MCH 28.7 27.1 - 33.3 pg [facility] Comment:Testing performed by : [facility], [address] [place] [phone] MCHC 32.9 32.3 - 35.7 g/dL [facility] Comment:Testing performed by : [facility], [address] [place] [phone] RDW CV 19.0(H) 11.1 - 14.9 % [facility] Comment:Testing performed by : [facility], [address] [place] [phone] NRBC abs 0.00 0.00 - 0.01 K/cumm [facility] Comment:Testing performed by : [facility], [address] [place] [phone] Blood 01/30/2025 10:0 4 AM CDT 01/30/2025 10:09 AM CDT Stan Meza MD LAB BLOOD ORDERABLES Yolette banda Result [facility] Department [place] [address] * (ABNORMAL) Comprehensive metabolic panel (01/30/2025 10:04 AM CDT) Sodium 134(L) 135 - 145 mmol/L Potassium, pl 4.7 3.3 - 4.9 mmol/L [facility] Chloride 100 97 - 110 mmol/L [facility] CO2 24 22 - 32 mmol/L [facility] Anion gap 10 2 - 15 mmol/L [facility] BUN 10 6 - 25 mg/dL [facility] Creatinine 0.64(L) 0.80 - 1.30 mg/dL [facility] Glucose 102 70 - 199 mg/dL [facility] Comment: Interpretive Data Fasting glucose >/= 126 [...] Calcium 9.5 8.5 - 10.3 mg/dL [facility] Bilirubin, total 0.2 0.1 - 1.2 mg/dL [facility] Protein, pl 6.8 6.5 - 8.5 g/dL [facility] Albumin 3.9 3.5 - 5.0 g/dL [facility] Alk phos 102 40 - 130 Units/L [facility] ALT 14 7 - 55 Units/L [facility] AST 18 10 - 50 Units/L [facility] Comment:Hemolyzed; result ma y be falsely elevated Blood 01/30/2025 10:0 4 AM CDT 01/30/2025 10:13 AM CDT Stan Meza MD LAB BLOOD ORDERABLES Yolette banda Result [facility] Department [place] [address] * CT Body Outside Consult (01/27/2025 8:12 PM CDT) Anatomical Region Laterality Modality Body N/A Computed Tomogra phy 01/28/2025 10:1 7 AM CDT Impressions 01/28/2025 2:11 PM CDT 1. Unchanged posttreatment changes in the left upper lobe. 2. Unchanged healing pathologic fracture of the sternal osseous lesion. 3. Unchanged treated adrenal metastases. The findings, conclusions and recommendations within this report do not replace the initial findings, conclusions and recommendations made at the facility where the study was performed based upon the imaging and clinical condition at that time. Comparison with the prior report and clinical history is necessary. The provided images may or may not represent the cowlitz source data set and thus may contain changes that may lower the accuracy of this second-opinion interpretation. Dictated by: Mekhi Quigley M.D. The radiology attending physician has personally reviewed this study, and had reviewed and/or edited this written report and agrees with it. Electronically signed by: Silvio Holloway MD, PHD Narrative 01/28/2025 2:11 PM CDT EXAMINATION: RADIOLOGY CONSULTATION ON OUTSIDE IMAGING STUDY STUDY INITIALLY PERFORMED: 01/20/2025 at [facility]. TYPE OF STUDY: Multiple CT images of the chest with contrast are provided at the time of this interpretation. CONTRAST ROUTE: Contrast was administered via the intravenous route. The protocol was adequate to address the clinical question. The outside final report was available at the time of this second opinion interpretation. TYPE OF CONSULTATION: Consult on outside imaging study with images submitted through Outside Image Sharing Service DATE OF CONSULTATION: 01/28/2025 9:24 AM HISTORY: Lung cancer COMPARISON: 12/12/2024. FINDINGS: Unchanged peribronchial vascular thickening and architectural distortion in the left upper lobe in keeping with radiation changes. Unchanged paraseptal emphysema. Unchanged upper lung predominant reticulations related to be sequela of prior lung image. No new or suspicious pulmonary nodule or consolidation. No pleural effusion or pneumothorax. There is unchanged slight decreased size of soft tissue thickening about the right upper lobe pulmonary artery and in the aortopulmonary window. There is encasement of the left lower lobe pulmonary artery branches with areas of vascular narrowing which are unchanged. Heart size is normal without pericardial effusion. Normal caliber thoracic aorta. No thoracic lymphadenopathy. Normal esophagus. Multiple healed left posterior rib fractures. Unchanged 9 mm left hilar lymph node. The partially imaged upper abdomen demonstrates unchanged cystic lesion in hepatic segment 4. Unchanged appearance of the bilateral adrenal glands and facet treated prior metastases. Unchanged lytic osseous lesion in the superior aspect of the sternal body with healing pathologic fracture of the anterior cortex with periosteal callus formation (series 5 image 90). Procedure Note Silvio Holloway MD PhD - 01/28/2025 EXAMINATION: RADIOLOGY CONSULTATION ON OUTSIDE IMAGING STUDY STUDY INITIALLY PERFORMED: 01/20/2025 at [facility]. TYPE OF STUDY: Multiple CT images of the chest with contrast are provided at the time of this interpretation. CONTRAST ROUTE: Contrast was administered via the intravenous route. The protocol was adequate to address the clinical question. The outside final report was available at the time of this second opinion interpretation. TYPE OF CONSULTATION: Consult on outside imaging study with images submitted through Outside Image Sharing [facility] DATE OF CONSULTATION: 01/28/2025 9:24 AM HISTORY: Lung cancer COMPARISON: 12/12/2024. FINDINGS: Unchanged peribronchial vascular thickening and architectural distortion in the left upper lobe in keeping with radiation changes. Unchanged paraseptal emphysema. Unchanged upper lung predominant reticulations related to be sequela of prior lung image. No new or suspicious pulmonary nodule or consolidation. No pleural effusion or pneumothorax. There is unchanged slight decreased size of soft tissue thickening about the right upper lobe pulmonary artery and in the aortopulmonary window. There is encasement of the left lower lobe pulmonary artery branches with areas of vascular narrowing which are unchanged. Heart size is normal without pericardial effusion. Normal caliber thoracic aorta. No thoracic lymphadenopathy. Normal esophagus. Multiple healed left posterior rib fractures. Unchanged 9 mm left hilar lymph node. The partially imaged upper abdomen demonstrates unchanged cystic lesion in hepatic segment 4. Unchanged appearance of the bilateral adrenal glands and facet treated prior metastases. Unchanged lytic osseous lesion in the superior aspect of the sternal body with healing pathologic fracture of the anterior cortex with periosteal callus formation (series 5 image 90). IMPRESSION: 1. Unchanged posttreatment changes in the left upper lobe. 2. Unchanged healing pathologic fracture of the sternal osseous lesion. 3. Unchanged treated adrenal metastases. The findings, conclusions and recommendations within this report do not replace the initial findings, conclusions and recommendations made at the facility where the study was performed based upon the imaging and clinical condition at that time. Comparison with the prior report and clinical history is necessary. The provided images may or may not represent the cowlitz source data set and thus may contain changes that may lower the accuracy of this second-opinion interpretation. Dictated by: Mekhi Quigley M.D. The radiology attending physician has personally reviewed this study, and had reviewed and/or edited this written report and agrees with it. Electronically signed by: Silvio Holloway MD, PHD us Stan Meza MD IM CT PROCEDURES Final R esult * Differential, auto (01/09/2025 7:23 AM CDT) Neutrophil abs 2.0 1.5 - 6.5 K/cumm Comment:Testing performed by : [facility], [address] [place] [phone] Lymphocyte abs 0.8 0.8 - 3.3 K/cumm [facility] Comment:Testing performed by : [facility], [address] [place] [phone] Monocyte abs 0.6 0.2 - 0.8 K/cumm [facility] Comment:Testing performed by : [facility], [address] [place] [phone] Eosinophil abs 0.3 0.0 - 0.5 K/cumm [facility] Comment:Testing performed by : [facility], [address] [place] [phone] Basophil abs 0.1 0.0 - 0.1 K/cumm [facility] Comment:Testing performed by : [facility], [address] [place] [phone] Neutrophil pct 53.2 % [facility] Comment: Interpretive Data Percent cell count reference ranges are not reported, since discordance with absolute values may lead to misinterpretation of CBC data. Current Interpretive Data was last revised on 2018. Testing performed by: [facility], [address] [place] [phone] Lymphocyte pct 21.6 % [facility] Comment: Interpretive Data Percent cell count reference ranges are not reported, since discordance with absolute values may lead to misinterpretation of CBC data. Current Interpretive Data was last revised on 2018. Testing performed by: [facility], [address] [place] [phone] Monocyte pct 16.8 % [facility] Comment: Interpretive Data Percent cell count reference ranges are not reported, since discordance with absolute values may lead to misinterpretation of CBC data. Current Interpretive Data was last revised on 2018. Testing performed by: [facility], [address] [place] [phone] Eosinophil pct 6.8 % [facility] Comment: Interpretive Data Percent cell count reference ranges are not reported, since discordance with absolute values may lead to misinterpretation of CBC data. Current Interpretive Data was last revised on 2018. Testing performed by: [facility], [address] [place] [phone] Basophil pct 1.6 % [facility] Comment: Interpretive Data Percent cell count reference ranges are not reported, since discordance with absolute values may lead to misinterpretation of CBC data. Current Interpretive Data was last revised on 2018. Testing performed by: [facility], [address] [place] [phone] Blood 01/09/2025 7:23 AM CDT 01/09/2025 7:26 AM CDT us Stan Meza MD LAB BLOOD ORDERABLES Yolette banda Result CHEMA RESENDIZ [facility] Department [place] [address] * (ABNORMAL) CBC with auto differential (01/09/2025 7:23 AM CDT) WBC 3.8 3.8 - 9.9 K/cumm Comment:Testing performed by : [facility], [address] [place] [address] Hgb 11.4(L) 13.0 - 17.5 g/dL [facility] Comment:Testing performed by : [facility], [address] [place] [address] Hct 35.0(L) 38.9 - 50.3 % [facility] Comment:Testing performed by : [facility], [address] [place] [address] Plt 264 150 - 400 K/cumm [facility] Comment:Testing performed by : [facility], [address] [place] [address] MPV 7.6 6.8 - 10.4 fL [facility] Comment:Testing performed by : [facility], [address] [place] [address] RBC 3.90(L) 4.30 - 5.80 M/cumm [facility] Comment:Testing performed by : [facility], [address] [place], [place] [phone] MCV 89.7 81.3 - 96.4 fL [facility] Comment:Testing performed by : [facility], [address] [place], [place] [id number] MCH 29.2 27.1 - 33.3 pg [facility] Comment:Testing performed by : [facility], [address] [place], [place] [phone] MCHC 32.6 32.3 - 35.7 g/dL [facility] Comment:Testing performed by : [facility], [address] [place], [place] [id number] RDW CV 19.0(H) 11.1 - 14.9 % [facility] Comment:Testing performed by : [facility], [address] [place], [place] [id number] NRBC abs 0.00 0.00 - 0.01 K/cumm [facility] Comment:Testing performed by : [facility], [address] [place], [place] [id number] Blood 01/09/2025 7:23 AM CDT 01/09/2025 7:26 AM CDT us Stan Meza MD LAB BLOOD ORDERABLES Yolette l Result [facility] Department [place] [address] * eGFR (12/26/2024 7:39 AM FUEL AGENT) eGFR >90 >=60 mL/min/1. 73 m2 Comment: [...] interpretive data was last reviewed 2021. Blood 12/26/2024 7:39 AM FUEL AGENT 12/26/2024 7:41 AM FUEL AGENT us Stan Meza MD LAB BLOOD ORDERABLES Yolette banda Result CHEMA RESENDIZ [facility] Department [place] [address] * (ABNORMAL) Differential, auto (12/26/2024 7:39 AM FUEL AGENT) Neutrophil abs 4.0 1.5 - 6.5 K/cumm Comment:Testing performed by : [facility], [address] [place] [phone] Lymphocyte abs 0.7(L) 0.8 - 3.3 K/cumm [facility] Comment:Testing performed by : [facility], [address] [place] [phone] Monocyte abs 0.4 0.2 - 0.8 K/cumm CHEMA RESENDIZ Comment:Testing performed by : [facility], [address] [place] [phone] Eosinophil abs 0.2 0.0 - 0.5 K/cumm [facility] Comment:Testing performed by : [facility], [address] [place] [phone] Basophil abs 0.0 0.0 - 0.1 K/cumm [facility] Comment:Testing performed by : [facility], [address] [place] [phone] Neutrophil pct 74.2 % CHEMA RESENDIZ Comment: Interpretive Data Percent cell count reference ranges are not reported, since discordance with absolute values may lead to misinterpretation of CBC data. Current Interpretive Data was last revised on 2018. Testing performed by: [facility], [address] [place] [phone] Lymphocyte pct 13.2 % CERNER BJ Comment: Interpretive Data Percent cell count reference ranges are not reported, since discordance with absolute values may lead to misinterpretation of CBC data. Current Interpretive Data was last revised on 2018. Testing performed by: [facility], [address] [place] [phone] Monocyte pct 8.1 % CERNER BJ Comment: Interpretive Data Percent cell count reference ranges are not reported, since discordance with absolute values may lead to misinterpretation of CBC data. Current Interpretive Data was last revised on 2018. Testing performed by: [facility], [address] [place] [address] Eosinophil pct 3.7 % [facility] Comment: Interpretive Data Percent cell count reference ranges are not reported, since discordance with absolute values may lead to misinterpretation of CBC data. Current Interpretive Data was last revised on 2018. Testing performed by: [facility], [address] [place] [phone] Basophil pct 0.8 % CERNER [facility] Comment: Interpretive Data Percent cell count reference ranges are not reported, since discordance with absolute values may lead to misinterpretation of CBC data. Current Interpretive Data was last revised on 2018. Testing performed by: [facility], [address] [place] [phone] Blood 12/26/2024 7:39 AM FUEL AGENT 12/26/2024 7:40 AM FUEL AGENT us Stan Meza MD LAB BLOOD ORDERABLES Yolette banda Result [facility] Department [place] [address] * (ABNORMAL) CBC with auto differential (12/26/2024 7:39 AM FUEL AGENT) WBC 5.4 3.8 - 9.9 K/cumm Comment:Testing performed by : [facility], [address] [place] [address] Hgb 10.8(L) 13.0 - 17.5 g/dL CERNER BJ Comment:Testing performed by : [facility], [address] [place] [address] Hct 33.2(L) 38.9 - 50.3 % CERNER BJ Comment:Testing performed by : [facility], [address] [place] [address] Plt 183 150 - 400 K/cumm CERNER BJ Comment:Testing performed by : [facility], [address] [place] [address] MPV 7.0 6.8 - 10.4 fL CERNER BJ Comment:Testing performed by : [facility], [address] [place] [address] RBC 3.66(L) 4.30 - 5.80 M/cumm CERNER BJ Comment:Testing performed by : [facility], [address] [place] [address] MCV 90.5 81.3 - 96.4 fL CERNER BJ Comment:Testing performed by : [facility], [address] [place] [address] MCH 29.6 27.1 - 33.3 pg CERNER BJ Comment:Testing performed by : [facility], [address] [place] [address] MCHC 32.7 32.3 - 35.7 g/dL CERNER BJ Comment:Testing performed by : [facility], [address] [place] [address] RDW CV 19.3(H) 11.1 - 14.9 % CERNER BJ Comment:Testing performed by : [facility], [address] [place] [address] NRBC abs 0.00 0.00 - 0.01 K/cumm [facility] Comment:Testing performed by : [facility], [address] [place] [phone] Blood 12/26/2024 7:3 9 AM FUEL AGENT 12/26/2024 7:40 AM FUEL AGENT Stan Meza MD LAB BLOOD ORDERABLES Yolette l Result [facility] [place] [address] * Phosphorus (12/26/2024 7:39 AM FUEL AGENT) Phosphorus, pl 3.3 2.3 - 4.5 mg/dL Blood 12/26/2024 7:39 AM FUEL AGENT 12/26/2024 7:41 AM FUEL AGENT Stan Meza MD LAB BLOOD ORDERABLES Yolette l Result Performing Organization Address City/[facility] Co de Phone Number [facility] [place] [address] * Magnesium (12/26/2024 7:39 AM FUEL AGENT) Magnesium 1.9 1.4 - 2.5 mg/dL Blood 12/26/2024 7:39 AM FUEL AGENT 12/26/2024 7:41 AM FUEL AGENT Stan Meza MD LAB BLOOD ORDERABLES Yolette l Result Performing Organization Address City/State/[facility] Co de Phone Number [facility] [place] [address] * (ABNORMAL) Comprehensive metabolic panel (12/26/2024 7:39 AM FUEL AGENT) Sodium 134(L) 135 - 145 mmol/L Potassium, pl 4.2 3.3 - 4.9 mmol/L [facility] Chloride 98 97 - 110 mmol/L [facility] CO2 30 22 - 32 mmol/L [facility] Anion gap 6 2 - 15 mmol/L [facility] BUN 5(L) 6 - 25 mg/dL [facility] Creatinine 0.58(L) 0.80 - 1.30 mg/dL [facility] Glucose 106 70 - 199 mg/dL [facility] Comment: Interpretive Data Fasting glucose >/= 126 [...] interpretive data was last revised 2022. Calcium 9.7 8.5 - 10.3 mg/dL [facility] Bilirubin, total 0.3 0.1 - 1.2 mg/dL [facility] Protein, pl 7.1 6.5 - 8.5 g/dL [facility] Albumin 3.8 3.5 - 5.0 g/dL [facility] Alk phos 106 40 - 130 Units/L [facility] ALT 11 7 - 55 Units/L [facility] AST 16 10 - 50 Units/L [facility] Blood 12/26/2024 7:39 AM FUEL AGENT 12/26/2024 7:41 AM FUEL AGENT us Stan Meza MD LAB BLOOD ORDERABLES Yolette l Result [facility] Department of Laboratories [place], [place] [id number] * CT Chest Abdomen Pelvis W Contrast (12/12/2024 11:00 AM FUEL AGENT) Anatomical Region Laterality Modality Body N/A Computed Tomogra phy 12/12/2024 11:3 3 AM FUEL AGENT Impressions 12/12/2024 11:33 AM FUEL AGENT 1. Similar burden of osseous metastasis, treated bilateral adrenal metastasis, and slightly smaller measurement of left hilar tumor. No evidence of progression. 2. Similar degree of mild severity peripheral lung damage/organized pneumonia. Electronically signed by: El Bee M.D. Narrative 12/12/2024 11:33 AM FUEL AGENT EXAMINATION: Computed tomography of the chest, abdomen [...] by: El Bee M.D. Anderson Bahena MD [facility] [place]ED[place] Final Result * CT Head WO Contrast (12/12/2024 11:00 AM FUEL AGENT) Anatomical Region Laterality Modality Head and Neck N/A Computed Tomogra phy 12/12/2024 11:0 7 AM FUEL AGENT Impressions 12/12/2024 11:07 AM FUEL AGENT 1. No acute intracranial hemorrhage, mass effect, or large new area of edema.. Note is made that a contrast-enhanced examination would be more sensitive for the detection of intracranial metastases. Electronically signed by: Luciano Napier M.D. Narrative 12/12/2024 11:07 AM FUEL AGENT EXAMINATION: CT head without contrast HISTORY: Metastatic [...] effect or midline shift is present. The poretr-white matter differentiation is normal. The visualized portions [...] Troponin I high-sensitivity 2-hour (12/12/2024 10:33 AM FUEL AGENT) Trop I hs 6 <=35 ng/L Comment: Interpretive Data For further hscTnI resources including the diagnostic algorithm and an aid in interpretation, copy and paste this link: https://bjhlab.testcatalog.org/show/hsTrop-1 Current Interpretive Data last revised 2020. Trop I hs delta 1 ng/L CERNER BJ Trop I hs interp Insignificant CERNER BJ Blood 12/12/2024 10:3 3 AM FUEL AGENT 12/12/2024 10:45 AM FUEL AGENT Natalie Guzman MD LAB BLOOD ORDERABLES Yolette l Result [facility] Department [place] [address] * XR Chest PA Lateral 2 Views (12/12/2024 10:28 AM FUEL AGENT) Anatomical Region Laterality Modality Body, Chest N/A Computed Radiogr aphy 12/12/2024 11:1 1 AM FUEL AGENT Impressions 12/12/2024 11:11 AM FUEL AGENT Comparison May 2024. Low lung volumes. Mild [...] El Bee M.D. Narrative 12/12/2024 11:11 AM FUEL AGENT EXAMINATION: 2 view chest radiograph Procedure Note [...] and COVID-19 PCR Nasopharyngeal (12/12/2024 9:35 AM FUEL AGENT) Pathologist [facility] COVID-19 RNA Negative Negative [facility] Influenza A RNA Negative Negative [facility] Influenza B RNA Negative Negative [facility] RSV RNA Negative Negative [facility] Comment: Interpretive data: Testing performed by [facility] ([phone]). This test is performed using the PB[employer] Concierge Xpert Xpress CoV-2/Flu/RSV plus assay. This is a multiplex, real-time reverse transcriptase PCR assay intended for the qualitative detection of nucleic acid from SARS-CoV-2, influenza A, influenza B, and respiratory syncytial virus. This assay has been cleared by the [place] Food and Drug administration. The performance characteristics have been verified by the [facility]. Results must be considered in the clinical context, and a negative result does not rule out infection. Interpretive Data last revised 2023 Nasopharyngeal 12/12/2024 9: 35 AM FUEL AGENT 12/12/2024 9:46 AM FUEL AGENT Narrative [facility] - 12/12/2024 10:27 AM FUEL AGENT Is the Patient experiencing symptoms consistent with COVID?->No Anderson Bahena MD LAB MICROBIOLOGY - GENE RAL ORDERABLES Final Result Performing Organization Address [facility]/ZIP Co de Phone Number [facility] Department [place] [address] [facility] * (ABNORMAL) Pro B-type natriuretic peptide (12/12/2024 9:35 AM FUEL AGENT) NT-proBNP 695(H) <=300 pg/mL Comment: Interpretive Comments: [...] Revised Date: 2018. Blood 12/12/2024 9:35 AM FUEL AGENT 12/12/2024 9:48 AM FUEL AGENT Anderson Bahena MD LAB BLOOD ORDERABLES Fi nal Result Performing Organization Address [facility] Co de Phone Number [facility] Department [place] [address] * Troponin I high-sensitivity series (baseline, 2hr, 4hr, 6hr) (12/12/2024 8:45 AM FUEL AGENT) Trop I hs 5 <=35 ng/L Comment: Interpretive Data For further hscTnI resources including the diagnostic algorithm and an aid in interpretation, copy and paste this link: https://bjhlab.testcatalog.org/show/hsTrop-1 Current Interpretive Data last revised 2020. Blood 12/12/2024 8:45 AM FUEL AGENT 12/12/2024 8:55 AM FUEL AGENT Julio Rodriguez MD LAB BLOOD ORDERABLES F inal Result [facility] Department [place] [address] * eGFR (12/12/2024 8:45 AM FUEL AGENT) eGFR >90 >=60 mL/min/1. 73 m2 Comment: [...] last reviewed 2021. Blood 12/12/2024 8:45 AM FUEL AGENT 12/12/2024 8:55 AM FUEL AGENT us Julio Rodriguez MD LAB BLOOD ORDERABLES F inal Result [facility] Department [place] [address] * (ABNORMAL) Differential, auto (12/12/2024 8:45 AM FUEL AGENT) Neutrophil abs 3.7 1.5 - 6.5 K/cumm Imm gran abs 0.0 0.0 - 0.1 K/cumm [facility] Lymphocyte abs 0.7(L) 0.8 - 3.3 K/cumm [facility] Monocyte abs 0.4 0.2 - 0.8 K/cumm [facility] Eosinophil abs 0.3 0.0 - 0.5 K/cumm [facility] Basophil abs 0.0 0.0 - 0.1 K/cumm [facility] Neutrophil pct 72.0 % [facility] Comment: Interpretive Data Percent cell count reference ranges are not reported, since discordance with absolute values may lead to misinterpretation of CBC data. Current Interpretive Data was last revised on 2018. Imm gran pct 0.4 % [facility] Comment: Interpretive Data Percent cell count reference ranges are not reported, since discordance with absolute values may lead to misinterpretation of CBC data. Current Interpretive Data was last revised on 2018. Lymphocyte pct 12.7 % [facility] Comment: Interpretive Data Percent cell count reference ranges are not reported, since discordance with absolute values may lead to misinterpretation of CBC data. Current Interpretive Data was last revised on 2018. Monocyte pct 7.6 % [facility] Comment: Interpretive Data Percent cell count reference ranges are not reported, since discordance with absolute values may lead to misinterpretation of CBC data. Current Interpretive Data was last revised on 2018. Eosinophil pct 6.7 % [facility] Comment: Interpretive Data Percent cell count reference ranges are not reported, since discordance with absolute values may lead to misinterpretation of CBC data. Current Interpretive Data was last revised on 2018. Basophil pct 0.6 % [facility] Comment: Interpretive Data Percent cell count reference ranges are not reported, since discordance with absolute values may lead to misinterpretation of CBC data. Current Interpretive Data was last revised on 2018. Blood 12/12/2024 8:45 AM FUEL AGENT 12/12/2024 8:55 AM FUEL AGENT Julio Rodriguez MD LAB BLOOD ORDERABLES F inal Result Performing Organization Address [facility]/ZIP Co de Phone Number [facility] Department [place] [address] * (ABNORMAL) CBC with auto differential (12/12/2024 8:45 AM FUEL AGENT) WBC 5.1 3.8 - 9.9 K/cumm Hgb 10.3(L) 13.0 - 17.5 g/dL [facility] Hct 31.8(L) 38.9 - 50.3 % [facility] Plt 176 150 - 400 K/cumm [facility] MPV 8.9(L) 9.1 - 12.3 fL [facility] RBC 3.55(L) 4.30 - 5.80 M/cumm [facility] MCV 89.6 81.3 - 96.4 fL [facility] MCH 29.0 27.1 - 33.3 pg [facility] MCHC 32.4 32.3 - 35.7 g/dL [facility] RDW CV 19.2(H) 11.1 - 14.9 % [facility] RDW SD 63.2(H) 35.7 - 48.1 fL [facility] NRBC abs 0.00 0.00 - 0.01 K/cumm [facility] Blood 12/12/2024 8:45 AM FUEL AGENT 12/12/2024 8:55 AM FUEL AGENT us Julio Rodriguez MD LAB BLOOD ORDERABLES F inal Result Performing Organization Address [facility]/ZIP Co de Phone Number [facility] Department [place] [address] * (ABNORMAL) Comprehensive metabolic panel (12/12/2024 8:45 AM FUEL AGENT) Sodium 133(L) 135 - 145 mmol/L Potassium, pl 4.0 3.3 - 4.9 mmol/L [facility] Chloride 97 97 - 110 mmol/L [facility] CO2 29 22 - 32 mmol/L [facility] Anion gap 7 2 - 15 mmol/L [facility] BUN 3(L) 6 - 25 mg/dL [facility] Creatinine 0.54(L) 0.80 - 1.30 mg/dL [facility] Glucose 101 70 - 199 mg/dL [facility] Comment: Interpretive Data Fasting glucose >/= 126 [...] 2022. Calcium 9.4 8.5 - 10.3 mg/dL [facility] Bilirubin, total 0.4 0.1 - 1.2 mg/dL [facility] Protein, pl 6.6 6.5 - 8.5 g/dL [facility] Albumin 3.6 3.5 - 5.0 g/dL [facility] Alk phos 121 40 - 130 Units/L [facility] ALT 11 7 - 55 Units/L [facility] AST 19 10 - 50 Units/L [facility] Blood 12/12/2024 8:45 AM FUEL AGENT 12/12/2024 8:55 AM FUEL AGENT us Julio Rodriguez MD LAB BLOOD ORDERABLES F inal Result [facility] Department [place] [address] * ECG 12-LEAD (12/12/2024 8:16 AM FUEL AGENT) Narrative [facility] - 12/12/2024 8:16 AM FUEL AGENT Julio Rodriguez MD 12/12/2024 8:16 AM ECG [...] Julio Rodriguez MD ECG ORDERABLES Final Result [facility] * eGFR (12/05/2024 9:34 AM FUEL AGENT) eGFR >90 >=60 mL/min/1. 73 m2 Comment: [...] last reviewed 2021. Blood 12/05/2024 9:34 AM FUEL AGENT 12/05/2024 9:39 AM FUEL AGENT us Stan Meza MD LAB BLOOD ORDERABLES Yolette banda Result [facility] Department [place] [address] * Differential, auto (12/05/2024 9:34 AM FUEL AGENT) Neutrophil abs 2.5 1.5 - 6.5 K/cumm Comment:Testing performed by : [facility], [address] [place] [phone] Lymphocyte abs 0.8 0.8 - 3.3 K/cumm [facility] Comment:Testing performed by : [facility], [address] [place], [place] [phone] Monocyte abs 0.8 0.2 - 0.8 K/cumm [facility] Comment:Testing performed by : [facility], [address] [place], [place] [phone] Eosinophil abs 0.2 0.0 - 0.5 K/cumm [facility] Comment:Testing performed by : [facility], [address] [place], [place] [phone] Basophil abs 0.0 0.0 - 0.1 K/cumm [facility] Comment:Testing performed by : [facility], [address] [place] [phone] Neutrophil pct 58.7 % CERALDO RESENDIZ Comment: Interpretive Data Percent cell count reference ranges are not reported, since discordance with absolute values may lead to misinterpretation of CBC data. Current Interpretive Data was last revised on 2018. Testing performed by: [facility], [address] [place] [phone] Lymphocyte pct 17.5 % CERALDO RESENDIZ Comment: Interpretive Data Percent cell count reference ranges are not reported, since discordance with absolute values may lead to misinterpretation of CBC data. Current Interpretive Data was last revised on 2018. Testing performed by: [facility], [address] [place] [phone] Monocyte pct 19.3 % [facility]DO RESENDIZ Comment: Interpretive Data Percent cell count reference ranges are not reported, since discordance with absolute values may lead to misinterpretation of CBC data. Current Interpretive Data was last revised on 2018. Testing performed by: [facility], [address] [place] [phone] Eosinophil pct 4.0 % CERALDO [facility] Comment: Interpretive Data Percent cell count reference ranges are not reported, since discordance with absolute values may lead to misinterpretation of CBC data. Current Interpretive Data was last revised on 2018. Testing performed by: [facility], [address] [place] [phone] Basophil pct 0.5 % CERALDO RESENDIZ Comment: Interpretive Data Percent cell count reference ranges are not reported, since discordance with absolute values may lead to misinterpretation of CBC data. Current Interpretive Data was last revised on 2018. Testing performed by: [facility], [address] [place] [phone] Blood 12/05/2024 9:34 AM FUEL AGENT 12/05/2024 9:39 AM FUEL AGENT us Stan Meza MD LAB BLOOD ORDERABLES Yolette l Result [facility] Department [place] [address] * (ABNORMAL) Thyroid Function [place] (12/05/2024 9:34 AM FUEL AGENT) Pathologist [facility] TSH 0.24(L) 0.30 - 4.20 mcIUnit/mL Blood 12/05/2024 9:34 AM FUEL AGENT 12/05/2024 9:39 AM FUEL AGENT us Stan Meza MD LAB BLOOD ORDERABLES Yolette l Result [facility] Department [place] [address] * (ABNORMAL) CBC with auto differential (12/05/2024 9:34 AM FUEL AGENT) [facility] WBC 4.3 3.8 - 9.9 K/cumm Comment:Testing performed by : [facility], [address] [place] [address] Hgb 10.0(L) 13.0 - 17.5 g/dL CERNER [facility] Comment:Testing performed by : [facility], [address] [place] [address] Hct 31.1(L) 38.9 - 50.3 % CERNER [facility] Comment:Testing performed by : [facility], [address] [place] [address] Plt 124(L) 150 - 400 K/cumm CERALDO [facility] Comment:Testing performed by : [facility], [address] [place] [address] MPV 7.4 6.8 - 10.4 fL CERALDO BJ Comment:Testing performed by : [facility], [address] [place] [address] RBC 3.43(L) 4.30 - 5.80 M/cumm CERALDO BJ Comment:Testing performed by : [facility], [address] [place] [address] MCV 90.7 81.3 - 96.4 fL [facility] Comment:Testing performed by : [facility], [address] [place], [place] [phone] MCH 29.1 27.1 - 33.3 pg [facility] Comment:Testing performed by : [facility], [address] [place] [address] MCHC 32.1(L) 32.3 - 35.7 g/dL [facility] Comment:Testing performed by : [facility], [address] [place], [place] [phone] RDW CV 18.8(H) 11.1 - 14.9 % [facility] Comment:Testing performed by : [facility], [address] [place] [address] NRBC abs 0.00 0.00 - 0.01 K/cumm [facility] Comment:Testing performed by : [facility], [address] [place] [address] Blood 12/05/2024 9:34 AM FUEL AGENT 12/05/2024 9:39 AM FUEL AGENT Stan Meza MD LAB BLOOD ORDERABLES Yolette l Result Performing Organization Address City/[facility]/ZIP Co de Phone Number [facility] Department [place] [address] * T3, free (12/05/2024 9:34 AM FUEL AGENT) Free T3 2.7 2.0 - 4.4 pg/mL Blood 12/05/2024 9:34 AM FUEL AGENT 12/05/2024 9:39 AM FUEL AGENT Narrative [facility] - 12/05/2024 11:06 AM FUEL AGENT This test was reflexed from a T4 result. Stan Meza MD LAB BLOOD ORDERABLES Yolette l Result [facility] Department [place] [address] * T4, free (12/05/2024 9:34 AM FUEL AGENT) Pathologist [facility] Free T4 1.26 0.90 - 1.70 ng/dL Blood 12/05/2024 9:34 AM FUEL AGENT 12/05/2024 9:39 AM FUEL AGENT Narrative [facility] - 12/05/2024 10:41 AM FUEL AGENT This test was reflexed from a TSH result. us Stan Meza MD LAB BLOOD ORDERABLES Yolette veronika Result [facility] Department [place] [address] * (ABNORMAL) Comprehensive metabolic panel (12/05/2024 9:34 AM FUEL AGENT) Pathologist [facility] Sodium 133(L) 135 - 145 mmol/L Potassium, pl 4.0 3.3 - 4.9 mmol/L [facility] Chloride 98 97 - 110 mmol/L [facility] CO2 28 22 - 32 mmol/L [facility] Anion gap 7 2 - 15 mmol/L [facility] BUN 5(L) 6 - 25 mg/dL [facility] Creatinine 0.65(L) 0.80 - 1.30 mg/dL [facility] Glucose 106 70 - 199 mg/dL [facility] Comment: Interpretive Data Fasting glucose >/= 126 [...] 2022. Calcium 9.5 8.5 - 10.3 mg/dL [facility] Bilirubin, total 0.2 0.1 - 1.2 mg/dL [facility] Protein, pl 6.9 6.5 - 8.5 g/dL [facility] Albumin 3.8 3.5 - 5.0 g/dL [facility] Alk phos 127 40 - 130 Units/L [facility] ALT 7 7 - 55 Units/L [facility] AST 17 10 - 50 Units/L [facility] Blood 12/05/2024 9:34 AM FUEL AGENT 12/05/2024 9:39 AM FUEL AGENT us Stan Meza MD LAB BLOOD ORDERABLES Yolette banda Result [facility] Department [place] [address] from Last 3 Months Insurance [facility] Care Teams Environmental Attorney Relationship Specialty Start Date End Date Matthew Mccabe MD [address] [place] [address] PCP - General Family Medicine 05/13/24 Stan Meza MD [address] [facility], [address] [place] [address] Medical Oncologist/Automobile Mechanic Helper Medical Oncology 06/28/24
--- OUTSIDE RECORDS SUMMARY | 2025-02-25 07:37 | XMS_ITS | Encounter Summary ---
Author Organization [facility] Address [address] [place] [address] Care Team Providers Care Moccasin Sewer Name Role Phone Ian Pollock MD Primary Care Provider Katina Casiano DO Unavailable [phone] Xavi ACOSTA MD, Jameel Gaviria Primary Care Provider + Katina Casiano DO Unavailable [phone] Tracey Ang PA Unavailable [phone] Belkis Angel STORE PROMOTER-MDS MANAGER Primary Care Provider + Natalie Baum Primary Care Provider [phone] Reason for Visit * Reason Onset Date Comments Cardiac Rehab 02/23/2022 Encounter Details Date Type Department Care Team (Late st Contact Info) Description 02/23/2022 Telephone [facility] [address] [place] [address] Rama Lagos, shale planer operator helper Social History Tobacco Use Types Packs/Day Years [...] on file 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 Answer Date of Assessment Author No 01/20/2021 3:30 PM Sally Echevarria RN * Is person blind or have serious difficulty seeing? Answer Date of Assessment Author No 01/20/2021 3:30 PM Sally Echevarria RN * Does person have serious difficulty walking/climbing stairs? Answer Date of Assessment Author Yes 01/20/2021 3:30 PM Sally Echevarria RN * Does person have difficulty dressing/bathing? Answer Date of Assessment Author No 01/20/2021 3:30 PM Sally Echevarria RN * Does person have difficulty doing errands alone? Answer Date of Assessment Author No 01/20/2021 3:30 PM Sally Echevarria RN documented as of this encounter Mental Status * Does person have difficulty concentrating/remembering/making decisions? Answer Entry Date Author No 01/20/2021 3:30 PM Sally Echevarria RN documented in this encounter Plan of [...] on filedocumented in this encounter Care Teams Moccasin Sewer Relationship Specialty Start Date End Date Ian Pollock MD [address] [place] [address] PCP - General 08/21/20 05/29/23 Jamele Hurley III, MD [address] DIV OF [facility] [place] [place] [address] PCP - General Internal Medicine 06/05/23 08/28/23 Belkis Angel, STORE PROMOTER-MDS MANAGER [address] [facility] [address] [place] [address] PCP - General Nurse Practitioner 08/29/23 05/05/24 Natalie Baum [address] [place] [address] PCP - General 05/06/24 Katina Casiano DO [address] [facility] [address] DIV OF GEN INTERNAL MEDICINE [place], [place] Resident - PCP Internal Medicine 08/10/22 05/29/23 Katina Casiano DO [address] [facility] [address] DIV OF GEN INTERNAL MEDICINE [place], [place] Hospitalist 06/05/23 Tracey Ang PA [address] [facility] [address] [place] [address] Physician School Operations Manager 08/15/23 documented as of this encounter
--- OUTSIDE RECORDS SUMMARY | 2025-02-25 07:37 | XMS_ITS | Encounter Summary ---
Author Organization [facility] Address [address] [place] [address] Care Team Providers Care Flake Or Shred Roll Operator Name Role Phone Ian Pollock MD Primary Care Provider Katina Casiano DO Unavailable [phone] Xavi ACOSTA MD, Jameel Gaviria Primary Care Provider + Katina Casiano DO Unavailable [phone] Tracey Ang PA Unavailable [phone] Belkis Angel FUR TANNER-FABRIC DESIGNER Primary Care Provider + Natalie Baum Primary Care Provider [phone] Encounter Details Date Type Department Care Team (Late st Contact Info) Description 03/03/2022 Telephone [facility] [address] [place] [address] Alvarez Duarte MD [address] [address] Social History Tobacco Use Types Packs/Day Years [...] on file 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 Duarte Reason for call: Pt requested to cancel sleep study appt scheduledfor 03/07/22 at 8:00 pm. He is having transportation issues med [email or web address] does not run that late. He will call back to schedule when he can figure out his transportation. Please cancel this appt for him. Patient Call Back number: [phone] documented in this encounter Plan of Treatment [...] on filedocumented in this encounter Care Teams Flake Or Shred Roll Operator Relationship Specialty Start Date End Date Ian Pollock MD [address] DIV OF [facility] [place] [address] PCP - General 08/21/20 05/29/23 Jameel Hurley III, MD [address] DIV OF [facility] [place] [id number] PCP - General Internal Medicine 06/05/23 08/28/23 Belkis Angel APRN-FABRIC DESIGNER [address] [place] [address] [address] [place] [id number] PCP - General Nurse Practitioner 08/29/23 05/05/24 Natalie Baum [address] [place] [address] PCP - General 05/06/24 Katina Casiano DO [address] DIV OF [facility] INTERNAL [place] Resident - PCP Internal Medicine 08/10/22 05/29/23 Katina Casiano DO [address] DIV OF [facility] INTERNAL MEDICINE [place], [place] Hospitalist 06/05/23 Tracey Ang PA [address] [facility] [address] [place] [address] Physician [address] 13 Catapult Operator 08/15/23 documented as of this encounter
--- OUTSIDE RECORDS SUMMARY | 2025-02-25 07:37 | XMS_ITS | Clinical Summary ---
Author Organization [facility] Address [address] [place] [address] Care Team Providers Care Motion Picture Critic Name Role Phone Matthew Mccabe MD Primary Care Prov ider Stan Meza MD Unavailable [phone] Allergies Active Allergy Reactions Criticality Noted Date [...] unit tablet Take 1 tablet by mouth mac artist before breakfast 30 tablet 3 09/25/20 24 [...] Take 1 Can by mouth daily 01/31/20 Active predniSONE (DELTASONE) 20 mg tablet Take 3 tablets (60 mg) by mouth daily with breakfast for 7 days, THEN 2 tablets (40 mg) daily with breakfast for 7 days. 35 tablet 02/21/20 25 025 Active food supplemt, lactose-reduce d 0.05 gram- 1.5 kcal/mL liquid Take 1 Bottle by mouth daily 5688 mL 2 09/25/20 025 Discontin ued(Dupli ceciila order) Active Problems Problem Noted Date Diagnosed Date Hypokalemia 11/14/2024 Metastasis to bone 11/06/2024 Cancer related pain 08/15/2024 Prophylaxis for chemotherapy-induced neutropenia 08/01/2024 Primary cancer of left lower lobe of lung 2023 Cancer Staging:Clinical:Stage IVB(pM1c) - Unsigned Localized enlarged lymph nodes 05/28/2024 Hilar mass 05/28/2024 Encounters Date Type Department Care Team Description 02/21/2025 Orders Only [facility] [address] [place] [phone] Sasha Hernandes RN Hyperthyroidism (Primary Dx) 02/20/2025 9:30 AM CDT Infusion [facility] [address] [place] [address] Primary cancer of left lower lobe of lung (HCC) (Primary Dx) 02/20/2025 9:20 AM CDT Office Visit [facility] [address] [place] [phone] Stan Meza MD Primary cancer of left lower lobe of lung (HCC) (Primary Dx) 02/20/2025 8:45 AM CDT Lab [facility] Lab Collection [address] [place] [address] Primary cancer of left lower lobe of lung (HCC); Hypokalemia 02/20/2025 7:11 AM CDT - 02/20/2025 11:59 PM CDT Hospital Encounter [facility] [address] [place] [address] Stan Meza MD Primary cancer of left lower lobe of lung (HCC); Metastasis to bone (HCC) Discharge Disposition: Discharge to home or self care 02/20/2025 Documentation [facility] [address] [place] [address] Dagmar Pickard, RD 02/19/2025 Orders Only [facility] [address] [place] [address] [address] [place] [address] Sasha Hernandes RN Primary cancer of left lower lobe of lung (HCC) (Primary Dx) 02/12/2025 Social Work [facility] [address] [place] [phone] Sarah Brunner, TOBACCO FLAVORER 02/10/2025 Social Work [facility] [address] [place] [phone] Sarah Brunner, TOBACCO FLAVORER 01/30/2025 12:00 PM CDT Infusion [facility]fusion [address] [place] [address] [address] [place] [address] Metastasis to bone (HCC) (Primary Dx); Primary cancer of left lower lobe of lung (HCC); Hypokalemia 01/30/2025 11:00 AM CDT Office Visit [facility] [address] [place] [address] [address] [place] [address] Shari Quintana NP Primary cancer of left lower lobe of lung (HCC) (Primary Dx); Metastasis to bone (HCC); Hypokalemia 01/30/2025 10:00 AM CDT Lab [facility] [address] [place] [address] [address] [place] [address] Primary cancer of left lower lobe of lung (HCC); Hypokalemia 01/30/2025 Documentation [facility] [address] [place] [address] Dagmar Pickard, RD 01/30/2025 Telephone [facility] [address] [place] [address] [address] [place] [address] Cindy Montelongo, ALYX 01/27/2025 8:11 PM CDT - 01/27/2025 11:59 PM CDT Hospital Encounter [facility] [address] [place] [address] Diagnosis unknown Discharge Disposition: Discharge to home or self care 01/23/2025 Telephone [facility] [address] [place] [address] Dagmar Pickard, LARRY 01/22/2025 Social Work [facility] [address] [place] [address] Floor [address] [place] [address] Sarah Brunner, LAURIE 01/22/2025 Telephone [facility] [address] [place] [address] [address] [place] [address] Sasha Hernandes RN 01/16/2025 Social Work [facility] [address] [place] [address] [address] [place] [address] Sarah Brunner, TOBACCO FLAVORER 01/09/2025 10:00 AM CDT Infusion [facility] Infusion [address] [place] [address] [address] [place] [address] 01/09/2025 8:30 AM CDT Infusion [facility] [address] [place] [address] [address] [place] [address] Hypokalemia (Primary Dx); Primary cancer of left lower lobe of lung (HCC) 01/09/2025 7:30 AM CDT Lab [facility] [place] - Lab Collection [address] [place] [address] Floor [address] [place] [address] Primary cancer of left lower lobe of lung (HCC); Hypokalemia 01/09/2025 Orders Only [facility] [address] [place] [address] [address] [place] [address] Maddy Freire, ALYX 01/08/2025 Social Work [facility] [address] [place] [address] [address] [place] [address] Sarah Brunner, TOBACCO FLAVORER 01/03/2025 Documentation [facility] [address] [place] [phone] Sarah Brunner, TOBACCO FLAVORER 01/02/2025 Social Work [facility] [address] [place] [phone] Sarah Brunner, TOBACCO FLAVORER 01/02/2025 Telephone [facility] [address] [place] [address] Dagmar Pickard, LARRY 01/02/2025 Orders Only [facility] [address] [place] [phone] Cindy Montelongo RN Primary cancer of left lower lobe of lung (HCC) (Primary Dx); Hypokalemia 12/30/2024 Social Work [facility] [address] [place] [phone] Sarah Brunner, TOBACCO FLAVORER 12/30/2024 Telephone [facility] [address] [place] [phone] Angelika Curran CMA 12/26/2024 9:30 AM WET PLANT OPERATOR Infusion [facility] [address] [place] [address] [address] [place] [address] Metastasis to bone (HCC) (Primary Dx); Primary cancer of left lower lobe of lung (HCC); Hypokalemia 12/26/2024 8:40 AM WET PLANT OPERATOR Office Visit [facility] [address] [place] [phone] Stan Meza MD Primary cancer of left lower lobe of lung (HCC) (Primary Dx); Hypokalemia 12/26/2024 7:45 AM WET PLANT OPERATOR Lab [facility] Collection [address] [place] [address] Primary cancer of left lower lobe of lung (HCC); Hypokalemia; Metastasis to bone (HCC) 12/20/2024 Documentation [facility] [address] [place] [phone] Sarah Brunner, LAURIE 12/19/2024 Telephone [facility] [address] [place] [address] [address] [place] [address] Sasha Hernandes RN 12/18/2024 Telephone [facility] [address] [place] [phone] Sasha Hernandes RN 12/13/2024 Telephone [facility] [address] [place] [address] [address] [place] [address] Sasha Hernandes RN 12/12/2024 8:08 AM WET PLANT OPERATOR - 12/12/2024 1:30 PM WET PLANT OPERATOR Emergency [facility] Emergency Department 1 [place] [address] Julio Rodriguez MD Shortness of breath (Primary Dx); History of lung cancer; Pneumonia due to infectious organism, unspecified laterality, unspecified part of lung Discharge Disposition: Discharge to home or self care 12/12/2024 Orders Only [facility] [address] [place] [address] [address] [place] [address] Sasha Hernandes RN Hypokalemia (Primary Dx); Primary cancer of left lower lobe of lung (HCC) 12/10/2024 Orders Only [facility] [address] [place] [phone] Sasha Hernandes RN Primary cancer of left lower lobe of lung (HCC) (Primary Dx); Metastasis to bone (HCC) 12/09/2024 Documentation [facility] [address] [place] [address] [address] [place] [address] Sarah Brunner, TOBACCO FLAVORER 12/05/2024 10:30 AM WET PLANT OPERATOR Infusion [facility] [address] [place] [address] Floor [address] [place] [address] Primary cancer of left lower lobe of lung (HCC) (Primary Dx); Hypokalemia 12/05/2024 9:20 AM WET PLANT OPERATOR Office Visit [facility] [address] [place] [address] 5 [place] [address] Shari Quintana, LE Primary cancer of left lower lobe of lung (HCC) (Primary Dx); Hypokalemia 12/05/2024 8:30 AM WET PLANT OPERATOR Lab [facility] - Lab Collection [address] [place] [address] [address] [place] [address] Primary cancer of left lower lobe of lung (HCC); Hypokalemia 12/05/2024 Social Work [facility] [address] [place] [phone] Sarah Brunner, LAURIE 12/05/2024 Telephone [facility] [address] [place] [phone] Dagmar Pickard, LARRY 11/29/2024 Telephone [facility] [address] [place] [phone] Sasha Hernandes RN 11/28/2024 Telephone [facility] [address] [place] [phone] Sasha Hernandes RN 11/28/2024 Orders Only [facility] [address] [place] [phone] Sasha Hernandes RN Primary cancer of left lower lobe of lung (HCC) (Primary Dx); Hypokalemia 11/27/2024 Orders Only [facility] [address] [place] [phone] Sasha Hernandes RN Primary cancer of left lower lobe of lung (HCC) (Primary Dx) from Last 3 Months Immunizations Immunization Administration Dates Next Due Influenza, Quadrivalent, Hig h Dose, Preservative Free, Intrr 08/23/2024 Influenza, Quadrivalent, Rec ombinant, Egg Free, Preservative Free, Intramuscular 07/29/2022,07/26/2021 Influenza, Quadrivalent, Spl it, Intramuscular 07/17/2017,09/29/2016 Influenza, Quadrivalent, Spl it, Preservative Free, Intramuscular 09/29/2023,08/04/2020,07/11/2019,08/09,11/02/2015 Influenza, Unspecified 08/13/2020 maniaTV (J&J) SARS-CoV-2 Vaccination 01/17/2021 Pneumococcal Conjugate Pcv20 [...] Date Comments Arthritis Asthma CHF (congestive heart failure) (HCC) COPD (chronic obstructive pu lmonary disease) (HCC) Coronary artery disease Hypertension Sleep apnea Lung cancer (HCC) left lower lob e 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, lymph nodes, bone Depression Hypercholesteremia PVD (peripheral vascular disease) Vocal cord paralysis BPH (benign prostatic hyperplasia) [...] on file Legal Sex Male 6:04 PM WET PLANT OPERATOR Gender Identity Not on file Sexual [...] cm (5' 9 ) 12/12/2024 8:02 AM WET PLANT OPERATOR Body Mass Index 27.23 12/12/2024 8:02 AM WET PLANT OPERATOR Plan of Treatment Health Maintenance Due [...] (HCC) Hypokalemia EGFR STAT 12/26/2024 7:39 AM WET PLANT OPERATOR Primary cancer of left lower lobe of lung (HCC) DIFFERENTIAL AUTO STAT 12/26/2024 7:3 9 AM WET PLANT OPERATOR Primary cancer of left lower lobe of lung (HCC) Hypokalemia CBC WITH AUTO DIFFERENTIAL STAT 12/26/2024 7:39 AM WET PLANT OPERATOR Primary cancer of left lower lobe of lung (HCC) Hypokalemia COMPREHENSIVE METABOLIC PANEL STAT 12/26/2024 7:39 AM WET PLANT OPERATOR Primary cancer of left lower lobe of lung (HCC) PHOSPHORUS STAT 12/26/2024 7:39 AM WET PLANT OPERATOR Primary cancer of left lower lobe of lung (HCC) Metastasis to bone (HCC) MAGNESIUM STAT 12/26/2024 7:39 AM WET PLANT OPERATOR Primary cancer of left lower lobe of lung (HCC) Metastasis to bone (HCC) CT HEAD WO CONTRAST ED 12/12/2024 1 1:00 AM WET PLANT OPERATOR CT CHEST ABDOMEN PELVIS W CONTRAST ED 12/12/2024 11:00 AM WET PLANT OPERATOR TROPONIN I HIGH-SENSITIVITY 2-HOUR Timed 12/12/2024 10:33 AM WET PLANT OPERATOR XR CHEST PA LATERAL 2 VIEWS ED 12/12/2024 10:28 AM WET PLANT OPERATOR PRO B-TYPE NATRIURETIC PEPTIDE STAT 12/12/2024 9:35 AM WET PLANT OPERATOR INFLUENZA A/B, RSV, AND COVID-19 PCR STAT 12/12/2024 9:35 AM WET PLANT OPERATOR EGFR STAT 12/12/2024 8:45 AM WET PLANT OPERATOR DIFFERENTIAL AUTO STAT 12/12/2024 8:4 5 AM WET PLANT OPERATOR TROPONIN I HIGH-SENSITIVITY SERIES (BASELINE, 2HR, 4HR, 6HR) STAT 12/12/2024 8:45 AM WET PLANT OPERATOR CBC WITH AUTO DIFFERENTIAL STAT 12/12/2024 8:45 AM WET PLANT OPERATOR COMPREHENSIVE METABOLIC PANEL STAT 12/12/2024 8:45 AM WET PLANT OPERATOR ECG 12-LEAD STAT 12/12/2024 8:16 AM WET PLANT OPERATOR T3, FREE Routine 12/05/2024 9:34 AM WET PLANT OPERATOR EGFR STAT 12/05/2024 9:34 AM WET PLANT OPERATOR Primary cancer of left lower lobe of lung (HCC) T4, FREE Routine 12/05/2024 9:34 AM WET PLANT OPERATOR Primary cancer of left lower lobe of lung (HCC) Hypokalemia DIFFERENTIAL AUTO STAT 12/05/2024 9:3 4 AM WET PLANT OPERATOR Primary cancer of left lower lobe of lung (HCC) CBC WITH AUTO DIFFERENTIAL STAT 12/05/2024 9:34 AM WET PLANT OPERATOR Primary cancer of left lower lobe of lung (HCC) COMPREHENSIVE METABOLIC PANEL STAT 12/05/2024 9:34 AM WET PLANT OPERATOR Primary cancer of left lower lobe of lung (HCC) THYROID FUNCTION CASCADE Routine 12/05/2024 9:34 AM WET PLANT OPERATOR Primary cancer of left lower lobe [...] ORDERABLES Yolette banda Result [facility]MA [facility] [place] [address] * (ABNORMAL) Differential, auto (02/20/2025 8:15 AM CDT) Neutrophil abs 4.30 1.50 - 6.50 K/cumm Comment:Testing performed by : [facility], [address] [place], [place] [phone] Lymphocyte abs 0.63(L) 0.80 - 3.30 K/cumm [facility] Comment:Testing performed by : [facility], [address] [place] [phone] Monocyte abs 0.71 0.20 - 0.80 K/cumm [facility]MA [facility] Comment:Testing performed by : [facility], [address] [place] [phone] Eosinophil abs 0.39 0.00 - 0.50 K/cumm [facility]MA [facility] Comment:Testing performed by : [facility], [address] [place] [phone] Basophil abs 0.04 0.00 - 0.10 K/cumm [facility] Comment:Testing performed by : [facility], [address] [place] [phone] Neutrophil pct 70.7 % [facility] Comment: Interpretive Data Percent cell count reference ranges are not reported, since discordance with absolute values may lead to misinterpretation of CBC data. Current Interpretive Data was last revised on 2018. Testing performed by: [facility], [address] [place] [phone] Lymphocyte pct 10.4 % CERNER BJ Comment: Interpretive Data Percent cell count reference ranges are not reported, since discordance with absolute values may lead to misinterpretation of CBC data. Current Interpretive Data was last revised on 2018. Testing performed by: [facility], [address] [place] [phone] Monocyte pct 11.7 % CERNER BJ Comment: Interpretive Data Percent cell count reference ranges are not reported, since discordance with absolute values may lead to misinterpretation of CBC data. Current Interpretive Data was last revised on 2018. Testing performed by: [facility], [address] [place] [address] Eosinophil pct 6.4 % CERNER [facility] Comment: Interpretive Data Percent cell count reference ranges are not reported, since discordance with absolute values may lead to misinterpretation of CBC data. Current Interpretive Data was last revised on 2018. Testing performed by: [facility], [address] [place] [phone] Basophil pct 0.7 % CERNER BJ Comment: Interpretive Data Percent cell count reference ranges are not reported, since discordance with absolute values may lead to misinterpretation of CBC data. Current Interpretive Data was last revised on 2018. Testing performed by: [facility], [address] [place] [phone] Blood 02/20/2025 8:15 AM CDT 02/20/2025 8:22 AM CDT us Stan Meza MD LAB BLOOD ORDERABLES Yolette veronika Result [facility] [place] [address] * (ABNORMAL) Thyroid Function [place] (02/20/2025 8:15 AM CDT) TSH 0.18(L) 0.30 - 4.20 mcIUnit/mL Blood 02/20/2025 8:15 AM CDT 02/20/2025 8:24 AM CDT us Stan Meza MD LAB BLOOD ORDERABLES Yolette l Result [facility] [place] [address] * (ABNORMAL) CBC with auto differential (02/20/2025 8:15 AM CDT) Pathologist [facility] WBC 6.08 3.80 - 9.90 K/cumm Comment:Testing performed by : [facility], [address] [place] [address] Hgb 11.3(L) 13.0 - 17.5 g/dL CERNER BJ Comment:Testing performed by : [facility], [address] [place] [address] Hct 34.8(L) 38.9 - 50.3 % CERNER BJ Comment:Testing performed by : [facility], [address] [place] [address] Plt 207 150 - 400 K/cumm CERNER BJ Comment:Testing performed by : [facility], [address] [place] [address] MPV 7.3 6.8 - 10.4 fL CERNER BJ Comment:Testing performed by : [facility], [address] [place] [address] RBC 4.01(L) 4.30 - 5.80 M/cumm CERNER BJ Comment:Testing performed by : [facility], [address] [place] [address] MCV 86.6 81.3 - 96.4 fL CERNER BJ Comment:Testing performed by : [facility], [address] [place], [place] [phone] MCH 28.2 27.1 - 33.3 pg CHEMA [facility] Comment:Testing performed by : [facility], [address] [place], [place] [phone] MCHC 32.6 32.3 - 35.7 g/dL CHEMA [facility] Comment:Testing performed by : [facility], [address] [place], [place] [phone] RDW CV 18.4(H) 11.1 - 14.9 % CHEMA [facility] Comment:Testing performed by : [facility], [address] [place], [place] [phone] NRBC abs 0.00 0.00 - 0.01 K/cumm CHEMA [facility] Comment:Testing performed by : [facility], [address] [place], [place] [phone] Blood 02/20/2025 8:15 AM CDT 02/20/2025 8:22 AM CDT Stan Meza MD LAB BLOOD ORDERABLES Yolette l Result Performing Organization Address City/[facility]/ZIP Co de Phone Number [facility] [place] [address] * T3, free (02/20/2025 8:15 AM CDT) Free T3 3.3 2.0 - 4.4 pg/mL Blood 02/20/2025 8:15 AM CDT 02/20/2025 8:24 AM CDT Narrative CHEMA [facility] - 02/20/2025 9:44 AM CDT This test was reflexed from a T4 result. Stan Meza MD LAB BLOOD ORDERABLES Yolette l Result [facility] [place] [address] * T4, free (02/20/2025 8:15 AM CDT) Free T4 1.39 0.90 - 1.70 ng/dL Blood 02/20/2025 8:15 AM CDT 02/20/2025 8:24 AM CDT Narrative [facility] - 02/20/2025 9:19 AM CDT This test was reflexed from a TSH result. us Stan Meza MD LAB BLOOD ORDERABLES Yolette l Result [facility] [place] [address] * (ABNORMAL) Comprehensive metabolic panel (02/20/2025 8:15 AM CDT) Pathologist [facility] Sodium 137 135 - 145 mmol/L Potassium, pl 3.7 3.3 - 4.9 mmol/L [facility] Chloride 100 97 - 110 mmol/L [facility] CO2 25 22 - 32 mmol/L [facility] Anion gap 12 2 - 15 mmol/L [facility] BUN 5(L) 6 - 25 mg/dL [facility] Creatinine 0.53(L) 0.80 - 1.30 mg/dL [facility] Glucose 120 70 - 199 mg/dL [facility] Comment: Interpretive Data Fasting glucose >/= [...] 2022. Calcium 9.7 8.5 - 10.3 mg/dL [facility] Bilirubin, total 0.3 0.1 - 1.2 mg/dL [facility] Protein, pl 7.3 6.5 - 8.5 g/dL [facility] Albumin 3.9 3.5 - 5.0 g/dL CERNER [facility] Alk phos 129 40 - 130 Units/L C[facility] ALT 14 7 - 55 Units/L CERNER [facility] AST 19 10 - 50 Units/L [facility] Blood 02/20/2025 8:15 AM CDT 02/20/2025 8:24 AM CDT us Stan Meza MD LAB BLOOD ORDERABLES Yolette banda Result [facility] [place] [address] * CT Chest Abdomen Pelvis W Contrast [...] disease. Electronically signed by: Orville Garg M.D. Stan Meza MD [facility] [place] PROCEDURES Final R esult * eGFR [...] MD LAB BLOOD ORDERABLES Yolette banda Result [facility] [place] [address] * (ABNORMAL) Differential, auto (01/30/2025 10:04 AM CDT) Neutrophil abs 8.93(H) 1.50 - 6.50 K/cumm Comment:Testing performed by : [facility], [address] [place], [place] [phone] Lymphocyte abs 0.70(L) 0.80 - 3.30 K[facility]cumm [facility] Comment:Testing performed by : [facility], [address] [place], [place] [phone] Monocyte abs 0.48 0.20 - 0.80 K/cumm CHEMA [facility] Comment:Testing performed by : [facility], [address] [place] [address] Eosinophil abs 0.01 0.00 - 0.50 K/cumm CHEMA [facility] Comment:Testing performed by : [facility], [address] [place], [place] [phone] Basophil abs 0.01 0.00 - 0.10 K/cumm CHEMA [facility] Comment:Testing performed by : [facility], [address] [place] [phone] Neutrophil pct 88.2 % CERNER [facility] Comment: Interpretive Data Percent cell count reference ranges are not reported, since discordance with absolute values may lead to misinterpretation of CBC data. Current Interpretive Data was last revised on 2018. Testing performed by: [facility], [address] [place] [phone] Lymphocyte pct 6.9 % CERNER [facility] Comment: Interpretive Data Percent cell count reference ranges are not reported, since discordance with absolute values may lead to misinterpretation of CBC data. Current Interpretive Data was last revised on 2018. Testing performed by: [facility], [address] [place] [phone] Monocyte pct 4.7 % CERNER [facility] Comment: Interpretive Data Percent cell count reference ranges are not reported, since discordance with absolute values may lead to misinterpretation of CBC data. Current Interpretive Data was last revised on 2018. Testing performed by: [facility], [address] [place] [phone] Eosinophil pct 0.1 % CERNER [facility] Comment: Interpretive Data Percent cell count reference ranges are not reported, since discordance with absolute values may lead to misinterpretation of CBC data. Current Interpretive Data was last revised on 2018. Testing performed by: [facility], [address] [place] [phone] Basophil pct 0.1 % CERNER BJ Comment: Interpretive Data Percent cell count reference ranges are not reported, since discordance with absolute values may lead to misinterpretation of CBC data. Current Interpretive Data was last revised on 2018. Testing performed by: [facility], [address] [place] [phone] Blood 01/30/2025 10:0 4 AM CDT 01/30/2025 10:09 AM CDT us Stan Meza MD LAB BLOOD ORDERABLES Yolette l Result [facility] One [facility] Department of Laboratories [place] [id number] * (ABNORMAL) CBC with auto differential (01/30/2025 10:04 AM CDT) WBC 10.13(H) 3.80 - 9.90 K/cumm Comment:Testing performed by : [facility], [address] [place] [address] Hgb 11.0(L) 13.0 - 17.5 g/dL CERNER BJ Comment:Testing performed by : [facility], [address] [place] [address] Hct 33.3(L) 38.9 - 50.3 % CERNER BJ Comment:Testing performed by : [facility], [address] [place] [address] Plt 206 150 - 400 K/cumm CERNER BJ Comment:Testing performed by : [facility], [address] [place] [address] MPV 6.6(L) 6.8 - 10.4 fL CERNER BJ Comment:Testing performed by : [facility], [address] [place] [address] RBC 3.82(L) 4.30 - 5.80 M/cumm CERNER BJ Comment:Testing performed by : [facility], [address] [place] [address] MCV 87.2 81.3 - 96.4 fL CERNER BJ Comment:Testing performed by : [facility], [address] [place] [address] MCH 28.7 27.1 - 33.3 pg CERNER BJ Comment:Testing performed by : [facility], [address] [place] [address] MCHC 32.9 32.3 - 35.7 g/dL CERNER BJ Comment:Testing performed by : [facility], [address] [place] [address] RDW CV 19.0(H) 11.1 - 14.9 % CERNER BJ Comment:Testing performed by : [facility], [address] [place] [phone] NRBC abs 0.00 0.00 - 0.01 K/cumm [facility] Comment:Testing performed by : [facility], [facility] [place] [phone] Blood 01/30/2025 10:0 4 AM CDT 01/30/2025 10:09 AM CDT us Stan Meza MD LAB BLOOD ORDERABLES Yolette l Result [facility] One [facility] [place] [address] * (ABNORMAL) Comprehensive metabolic panel (01/30/2025 10:04 AM CDT) Sodium 134(L) 135 - 145 mmol/L Potassium, pl 4.7 3.3 - 4.9 mmol/L [facility] Chloride 100 97 - 110 mmol/L [facility] CO2 24 22 - 32 mmol/L [facility] Anion gap 10 2 - 15 mmol/L [facility] BUN 10 6 - 25 mg/dL [facility] Creatinine 0.64(L) 0.80 - 1.30 mg/dL [facility] Glucose 102 70 - 199 mg/dL [facility] Comment: Interpretive Data Fasting glucose >/= [...] 2022. Calcium 9.5 8.5 - 10.3 mg/dL [facility] Bilirubin, total 0.2 0.1 - 1.2 mg/dL [facility] Protein, pl 6.8 6.5 - 8.5 g/dL [facility] Albumin 3.9 3.5 - 5.0 g/dL [facility] Alk phos 102 40 - 130 Units/L [facility] ALT 14 7 - 55 Units/L [facility] AST 18 10 - 50 Units/L [facility] Comment:Hemolyzed; result ma y be falsely elevated Blood 01/30/2025 10:0 4 AM CDT 01/30/2025 10:13 AM CDT us Stan Meza MD LAB BLOOD ORDERABLES Yolette l Result [facility] One [facility] [place] [address] * CT Body Outside Consult (01/27/2025 8:12 [...] images may or may not represent the wainwright source data set and thus may contain [...] IMAGING STUDY STUDY INITIALLY PERFORMED: 01/20/[address] [facility]. TYPE OF STUDY: Multiple CT images of [...] IMAGING STUDY STUDY INITIALLY PERFORMED: 01/20/[address] [facility]. TYPE OF STUDY: Multiple CT images of [...] images may or may not represent the wainwright source data set and thus may contain changes that may lower the accuracy of this second-opinion interpretation. Dictated by: Mekhi Quigley M.D. The radiology attending physician has personally reviewed this study, and had reviewed and/or edited this written report and agrees with it. Electronically signed by: Silvio Holloway MD, PHD us Stan Meza MD IMG CT PROCEDURES Final R esult * Differential, auto (01/09/2025 7:23 AM CDT) Neutrophil abs 2.0 1.5 - 6.5 K/cumm Comment:Testing performed by : [facility], [address] [place] [phone] Lymphocyte abs 0.8 0.8 - 3.3 K/cumm [facility] Comment:Testing performed by : [facility], [address] [place] [phone] Monocyte abs 0.6 0.2 - 0.8 K/cumm [facility] Comment:Testing performed by : [facility], [address] [place] [phone] Eosinophil abs 0.3 0.0 - 0.5 K/cumm [facility]ER [facility] Comment:Testing performed by : [facility], [address] [place] [phone] Basophil abs 0.1 0.0 - 0.1 K/cumm CERNER [facility] Comment:Testing performed by : [facility], [address] [place] [phone] Neutrophil pct 53.2 % CERNER BJ Comment: Interpretive Data Percent cell count reference ranges are not reported, since discordance with absolute values may lead to misinterpretation of CBC data. Current Interpretive Data was last revised on 2018. Testing performed by: [facility], [address] [place] [address] Lymphocyte pct 21.6 % CERNER BJ Comment: Interpretive Data Percent cell count reference ranges are not reported, since discordance with absolute values may lead to misinterpretation of CBC data. Current Interpretive Data was last revised on 2018. Testing performed by: [facility], [address] [place] [phone] Monocyte pct 16.8 % CERNER BJ Comment: Interpretive Data Percent cell count reference ranges are not reported, since discordance with absolute values may lead to misinterpretation of CBC data. Current Interpretive Data was last revised on 2018. Testing performed by: [facility], [address] [place] [phone] Eosinophil pct 6.8 % CERNER BJ Comment: Interpretive Data Percent cell count reference ranges are not reported, since discordance with absolute values may lead to misinterpretation of CBC data. Current Interpretive Data was last revised on 2018. Testing performed by: [facility], [address] [place] [phone] Basophil pct 1.6 % CERNER BJ Comment: Interpretive Data Percent cell count reference ranges are not reported, since discordance with absolute values may lead to misinterpretation of CBC data. Current Interpretive Data was last revised on 2018. Testing performed by: [facility], [address] [place] [address] Blood 01/09/2025 7:23 AM CDT 01/09/2025 7:26 AM CDT us Stan Meza MD LAB BLOOD ORDERABLES Yolette veronika Result [facility] [place] [address] * (ABNORMAL) CBC with auto differential (01/09/2025 7:23 AM CDT) WBC 3.8 3.8 - 9.9 K/cumm Comment:Testing performed by : [facility], [address] [place] [address] Hgb 11.4(L) 13.0 - 17.5 g/dL CERALDO RESENDIZ Comment:Testing performed by : [facility], [address] [place] [address] Hct 35.0(L) 38.9 - 50.3 % CERALDO BJ Comment:Testing performed by : [facility], [address] [place] [address] Plt 264 150 - 400 K/cumm CERALDO BJ Comment:Testing performed by : [facility], [address] [place] [address] MPV 7.6 6.8 - 10.4 fL CERALDO BJ Comment:Testing performed by : [facility], [address] [place] [address] RBC 3.90(L) 4.30 - 5.80 M/cumm CERALDO [facility] Comment:Testing performed by : [facility], [address] [place] [address] MCV 89.7 81.3 - 96.4 fL CERALDO BJ Comment:Testing performed by : [facility], [address] [place] [address] MCH 29.2 27.1 - 33.3 pg CERALDO BJ Comment:Testing performed by : [facility], [address] [place] [phone] MCHC 32.6 32.3 - 35.7 g/dL [facility] Comment:Testing performed by : [facility], [address] [place] [phone] RDW CV 19.0(H) 11.1 - 14.9 % [facility] Comment:Testing performed by : [facility], [address] [place] [phone] NRBC abs 0.00 0.00 - 0.01 K/cumm [facility] Comment:Testing performed by : [facility], [address] [place] [phone] Blood 01/09/2025 7:2 3 AM CDT 01/09/2025 7:26 AM CDT us Stan Meza MD LAB BLOOD ORDERABLES Yolette banda Result [facility] One [facility] [place] [address] * eGFR (12/26/2024 7:39 AM WET PLANT OPERATOR) eGFR >90 >=60 mL/min/1. 73 m2 [...] last reviewed 2021. Blood 12/26/2024 7:39 AM WET PLANT OPERATOR 12/26/2024 7:41 AM WET PLANT OPERATOR us Stan Meza MD LAB BLOOD ORDERABLES Yolette banda Result [facility] One [facility] [place] [address] * (ABNORMAL) Differential, auto (12/26/2024 7:39 AM WET PLANT OPERATOR) Neutrophil abs 4.0 1.5 - 6.5 K/cumm Comment:Testing performed by : [facility], [address] [place] [phone] Lymphocyte abs 0.7(L) 0.8 - 3.3 K/cumm CERNER [facility] Comment:Testing performed by : [facility], [address] [place] [phone] Monocyte abs 0.4 0.2 - 0.8 K/cumm CERNER [facility] Comment:Testing performed by : [facility], [address] [place] [phone] Eosinophil abs 0.2 0.0 - 0.5 K/cumm CERNER [facility] Comment:Testing performed by : [facility], [address] [place] [phone] Basophil abs 0.0 0.0 - 0.1 K/cumm CERNER [facility] Comment:Testing performed by : [facility], [address] [place] [phone] Neutrophil pct 74.2 % CERNER [facility] Comment: Interpretive Data Percent cell count reference ranges are not reported, since discordance with absolute values may lead to misinterpretation of CBC data. Current Interpretive Data was last revised on 2018. Testing performed by: [facility], [address] [place] [phone] Lymphocyte pct 13.2 % CERNER BJ Comment: Interpretive Data Percent cell count reference ranges are not reported, since discordance with absolute values may lead to misinterpretation of CBC data. Current Interpretive Data was last revised on 2018. Testing performed by: [facility], [address] [place] [phone] Monocyte pct 8.1 % [facility] RES[facility] Comment: Interpretive Data Percent cell count reference ranges are not reported, since discordance with absolute values may lead to misinterpretation of CBC data. Current Interpretive Data was last revised on 2018. Testing performed by: [facility], [address] [place] [phone] Eosinophil pct 3.7 % [facility] Comment: Interpretive Data Percent cell count reference ranges are not reported, since discordance with absolute values may lead to misinterpretation of CBC data. Current Interpretive Data was last revised on 2018. Testing performed by: [facility], [address] [place] [phone] Basophil pct 0.8 % [facility] RES[facility] Comment: Interpretive Data Percent cell count reference ranges are not reported, since discordance with absolute values may lead to misinterpretation of CBC data. Current Interpretive Data was last revised on 2018. Testing performed by: [facility], [address] [place] [phone] Blood 12/26/2024 7:39 AM WET PLANT OPERATOR 12/26/2024 7:40 AM WET PLANT OPERATOR us Stan Meza MD LAB BLOOD ORDERABLES Yolette l Result [facility] [place] [address] * (ABNORMAL) CBC with auto differential (12/26/2024 7:39 AM WET PLANT OPERATOR) WBC 5.4 3.8 - 9.9 K/cumm Comment:Testing performed by : [facility], [address] [place] [phone] Hgb 10.8(L) 13.0 - 17.5 g/dL [facility] RES[facility] Comment:Testing performed by : [facility], [address] [place], [place] [phone] Hct 33.2(L) 38.9 - 50.3 % CERNER BJ Comment:Testing performed by : [facility], [address] [place], [place] [phone] Plt 183 150 - 400 K/cumm CERNER BJ Comment:Testing performed by : [facility], [address] [place], [place] [phone] MPV 7.0 6.8 - 10.4 fL CERNER BJ Comment:Testing performed by : [facility], [address] [place], [place] [phone] RBC 3.66(L) 4.30 - 5.80 M/cumm CERNER BJ Comment:Testing performed by : [facility], [address] [place], [place] [phone] MCV 90.5 81.3 - 96.4 fL CERNER BJ Comment:Testing performed by : [facility], [address] [place], [place] [phone] MCH 29.6 27.1 - 33.3 pg CERNER BJ Comment:Testing performed by : [facility], [address] [place] [address] MCHC 32.7 32.3 - 35.7 g/dL CERNER [facility]J Comment:Testing performed by : [facility], [address] [place] [address] RDW CV 19.3(H) 11.1 - 14.9 % CERNER BJ Comment:Testing performed by : [facility], [address] [place] [address] NRBC abs 0.00 0.00 - 0.01 K/cumm CERNER BJ Comment:Testing performed by : [facility], [address] [place], [place] [phone] Blood 12/26/2024 7:39 AM WET PLANT OPERATOR 12/26/2024 7:40 AM WET PLANT OPERATOR Stan Meza MD LAB BLOOD ORDERABLES Yolette l Result [facility] [place] [address] * Phosphorus (12/26/2024 7:39 AM WET PLANT OPERATOR) [facility] Phosphorus, pl 3.3 2.3 - 4.5 mg/dL Blood 12/26/2024 7:3 9 AM WET PLANT OPERATOR 12/26/2024 7:41 AM WET PLANT OPERATOR Stan Meza MD LAB BLOOD ORDERABLES Yolette l Result Performing Organization Address City/[facility] Co de Phone Number [facility] [place] [address] * Magnesium (12/26/2024 7:39 AM WET PLANT OPERATOR) [facility] Magnesium 1.9 1.4 - 2.5 mg/dL Blood 12/26/2024 7:39 AM WET PLANT OPERATOR 12/26/2024 7:41 AM WET PLANT OPERATOR Stan Meza MD LAB BLOOD ORDERABLES Yolette l Result Performing Organization Address [facility] Co de Phone Number [facility] Department [place] [address] * (ABNORMAL) Comprehensive metabolic panel (12/26/2024 7:39 AM WET PLANT OPERATOR) [facility] Sodium 134(L) 135 - 145 mmol/L Potassium, pl 4.2 3.3 - 4.9 mmol/L [facility] Chloride 98 97 - 110 mmol/L [facility] CO2 30 22 - 32 mmol/L [facility] Anion gap 6 2 - 15 mmol/L [facility] BUN 5(L) 6 - 25 mg/dL [facility] Creatinine 0.58(L) 0.80 - 1.30 mg/dL [facility] Glucose 106 70 - 199 mg/dL [facility] Comment: Interpretive Data Fasting glucose >/= [...] Calcium 9.7 8.5 - 10.3 mg/dL CERNER [facility] Bilirubin, total 0.3 0.1 - 1.2 mg/dL CERNER [facility] Protein, pl 7.1 6.5 - 8.5 g/dL CERNER [facility] Albumin 3.8 3.5 - 5.0 g/dL [facility] Alk phos 106 40 - 130 Units/L [facility] ALT 11 7 - 55 Units/L CERNER [facility] AST 16 10 - 50 Units/L [facility] Blood 12/26/2024 7:39 AM WET PLANT OPERATOR 12/26/2024 7:41 AM WET PLANT OPERATOR us Stan Meza MD LAB BLOOD ORDERABLES Yolette banda Result [facility] One [facility] [place] [address] * CT Chest Abdomen Pelvis W Contrast (12/12/2024 11:00 AM WET PLANT OPERATOR) Anatomical Region Laterality Modality Body N/A Computed Tomogra phy 12/12/2024 11:3 3 AM WET PLANT OPERATOR Impressions 12/12/2024 11:33 AM WET PLANT OPERATOR 1. Similar burden of osseous metastasis, treated bilateral adrenal metastasis, and slightly smaller measurement of left hilar tumor. No evidence of progression. 2. Similar degree of mild severity peripheral lung damage/organized pneumonia. Electronically signed by: El Bee M.D. Narrative 12/12/2024 11:33 AM WET PLANT OPERATOR EXAMINATION: Computed tomography of the chest, [...] by: El Bee M.D. Anderson Bahena MD [facility] [place] PROCEDURES Final Result * CT Head WO Contrast (12/12/2024 11:00 AM WET PLANT OPERATOR) Anatomical Region Laterality Modality Head and Neck N/A Computed Tomogra phy 12/12/2024 11:0 7 AM WET PLANT OPERATOR Impressions 12/12/2024 11:07 AM WET PLANT OPERATOR 1. No acute intracranial hemorrhage, mass effect, or large new area of edema.. Note is made that a contrast-enhanced examination would be more sensitive for the detection of intracranial metastases. Electronically signed by: Luciano Napier M.D. Narrative 12/12/2024 11:07 AM WET PLANT OPERATOR EXAMINATION: CT head without contrast HISTORY: [...] by: Luciano Napier M.D. Anderson Bahena MD [facility] [place] PROCEDURES Final Result * Troponin I high-sensitivity 2-hour (12/12/2024 10:33 AM WET PLANT OPERATOR) Trop I hs 6 <=35 ng/L Comment: Interpretive Data For further hscTnI resources including the diagnostic algorithm and an aid in interpretation, copy and paste this link: https://bjhlab.testcatalog.org/show/hsTrop-[email or web address] Current Interpretive Data last revised 2020. Trop I hs delta 1 ng/L [facility] Trop I hs interp Insignificant [facility]ER [facility] Blood 12/12/2024 10:3 3 AM WET PLANT OPERATOR 12/12/2024 10:45 AM WET PLANT OPERATOR Natalie Guzman MD LAB BLOOD ORDERABLES Yolette banda Result [facility] One [facility] [place] [address] * XR Chest PA Lateral 2 Views (12/12/2024 10:28 AM WET PLANT OPERATOR) Anatomical Region Laterality Modality Body, Chest N/A Computed Radiogr aphy 12/12/2024 11:1 1 AM WET PLANT OPERATOR Impressions 12/12/2024 11:11 AM WET PLANT OPERATOR Comparison May 2024. Low lung volumes. [...] El Bee M.D. Narrative 12/12/2024 11:11 AM WET PLANT OPERATOR EXAMINATION: 2 view chest radiograph Procedure [...] and COVID-19 PCR Nasopharyngeal (12/12/2024 9:35 AM WET PLANT OPERATOR) [facility] COVID-19 RNA Negative Negative [facility] Influenza A RNA Negative Negative [facility] Influenza B RNA Negative Negative [facility] RSV RNA Negative Negative [facility] Comment: Interpretive data: Testing performed by [facility] ([phone]). This test is performed using the [employer] Xpert Xpress CoV-2/Flu/RSV plus assay. This is a multiplex, real-time reverse transcriptase PCR assay intended for the qualitative detection of nucleic acid from SARS-CoV-2, influenza A, influenza B, and respiratory syncytial virus. This assay has been cleared by the [place] Food and Drug administration. The performance characteristics have been verified by the [facility]. Results must be considered in the clinical context, and a negative result does not rule out infection. Interpretive Data last revised 2023 Nasopharyngeal 12/12/2024 9: 35 AM WET PLANT OPERATOR 12/12/2024 9:46 AM WET PLANT OPERATOR Narrative [facility] - 12/12/2024 10:27 AM WET PLANT OPERATOR Is the Patient experiencing symptoms consistent with COVID?->No Anderson Bahena MD LAB MICROBIOLOGY - GENE RAL ORDERABLES Final Result [facility] One [facility] [place] [address] [facility] * (ABNORMAL) Pro B-type natriuretic peptide (12/12/2024 9:35 AM WET PLANT OPERATOR) Pathologist [facility] NT-proBNP 695(H) <=300 pg/mL Comment: Interpretive Comments: [...] Eur Heart J. 2006:27:330-337. 2. Chapito RW, Bravo AM. J. AM Ana Cardiol: Cardiovasc Imag. 2009;2: 216- 225. Interpretive Data Last Revised Date: 2018. Blood 12/12/2024 9:35 AM WET PLANT OPERATOR 12/12/2024 9:48 AM WET PLANT OPERATOR Anderson Bahena MD LAB BLOOD ORDERABLES Fi nal Result [facility] One [facility] [place] [address] * Troponin I high-sensitivity series (baseline, 2hr, 4hr, 6hr) (12/12/2024 8:45 AM WET PLANT OPERATOR) Trop I hs 5 <=35 ng/L Comment: Interpretive Data For further [facility] resources including the diagnostic algorithm and an aid in interpretation, copy and paste this link: https://bjhlab.testcatalog.org/show/[email or web address] Current Interpretive Data last revised 2020. Blood 12/12/2024 8:45 AM WET PLANT OPERATOR 12/12/2024 8:55 AM WET PLANT OPERATOR Julio Rodriguez MD LAB BLOOD ORDERABLES F inal Result Performing Organization Address [facility] Co de Phone Number [facility] [place] [address] * eGFR (12/12/2024 8:45 AM WET PLANT OPERATOR) eGFR >90 >=60 mL/min/1. 73 m2 [...] last reviewed 2021. Blood 12/12/2024 8:45 AM WET PLANT OPERATOR 12/12/2024 8:55 AM WET PLANT OPERATOR Julio Rodriguez MD LAB BLOOD ORDERABLES F inal Result Performing Organization Address [facility] Co de Phone Number [facility] [place] [address] * (ABNORMAL) Differential, auto (12/12/2024 8:45 AM WET PLANT OPERATOR) Neutrophil abs 3.7 1.5 - 6.5 K/cumm Imm gran abs 0.0 0.0 - 0.1 K/cumm [facility] Lymphocyte abs 0.7(L) 0.8 - 3.3 K/cumm [facility] Monocyte abs 0.4 0.2 - 0.8 K/cumm [facility] Eosinophil abs 0.3 0.0 - 0.5 K/cumm [facility] Basophil abs 0.0 0.0 - 0.1 K/cumm [facility] Neutrophil pct 72.0 % [facility] Comment: Interpretive Data Percent cell count reference ranges are not reported, since discordance with absolute values may lead to misinterpretation of CBC data. Current Interpretive Data was last revised on 2018. Imm gran pct 0.4 % [facility] Comment: Interpretive Data Percent cell count reference ranges are not reported, since discordance with absolute values may lead to misinterpretation of CBC data. Current Interpretive Data was last revised on 2018. Lymphocyte pct 12.7 % [facility] Comment: Interpretive Data Percent cell count reference ranges are not reported, since discordance with absolute values may lead to misinterpretation of CBC data. Current Interpretive Data was last revised on 2018. Monocyte pct 7.6 % [facility] Comment: Interpretive Data Percent cell count reference ranges are not reported, since discordance with absolute values may lead to misinterpretation of CBC data. Current Interpretive Data was last revised on 2018. Eosinophil pct 6.7 % [facility] Comment: Interpretive Data Percent cell count reference ranges are not reported, since discordance with absolute values may lead to misinterpretation of CBC data. Current Interpretive Data was last revised on 2018. Basophil pct 0.6 % [facility] Comment: Interpretive Data Percent cell count reference ranges are not reported, since discordance with absolute values may lead to misinterpretation of CBC data. Current Interpretive Data was last revised on 2018. Blood 12/12/2024 8:45 AM WET PLANT OPERATOR 12/12/2024 8:55 AM WET PLANT OPERATOR Julio Rodriguez MD LAB BLOOD ORDERABLES F inal Result Performing Organization Address [facility] de Phone Number [facility] Department [place] [address] * (ABNORMAL) CBC with auto differential (12/12/2024 8:45 AM WET PLANT OPERATOR) [facility] WBC 5.1 3.8 - 9.9 K/cumm Hgb 10.3(L) 13.0 - 17.5 g/dL [facility] Hct 31.8(L) 38.9 - 50.3 % [facility] Plt 176 150 - 400 K/cumm [facility] MPV 8.9(L) 9.1 - 12.[address] [facility] RBC 3.55(L) 4.30 - 5.80 M/cumm [facility] MCV 89.6 81.3 - 96.[address] [facility] MCH 29.0 27.1 - 33.[address] [facility] MCHC 32.4 32.3 - 35.7 g/dL [facility] RDW CV 19.2(H) 11.1 - 14.9 % [facility] RDW SD 63.2(H) 35.7 - 48.[address] [facility] NRBC abs 0.00 0.00 - 0.01 K/cumm [facility] Blood 12/12/2024 8:45 AM WET PLANT OPERATOR 12/12/2024 8:55 AM WET PLANT OPERATOR Julio Rodriguez MD LAB BLOOD ORDERABLES F inal Result Performing Organization Address [facility] Co de Phone Number [facility] [place] [place] [address] * (ABNORMAL) Comprehensive metabolic panel (12/12/2024 8:45 AM WET PLANT OPERATOR) [facility] Sodium 133(L) 135 - 145 mmol/L Potassium, pl 4.0 3.3 - 4.9 mmol/L [facility] Chloride 97 97 - 110 mmol/L [facility] CO2 29 22 - 32 mmol/L [facility] Anion gap 7 2 - 15 mmol/L [facility] BUN 3(L) 6 - 25 mg/dL [facility] Creatinine 0.54(L) 0.80 - 1.30 mg/dL [facility] Glucose 101 70 - 199 mg/dL [facility] Comment: Interpretive Data Fasting glucose >/= [...] 2022. Calcium 9.4 8.5 - 10.3 mg/dL [facility] Bilirubin, total 0.4 0.1 - 1.2 mg/dL [facility] Protein, pl 6.6 6.5 - 8.5 g/dL [facility] Albumin 3.6 3.5 - 5.0 g/dL [facility] Alk phos 121 40 - 130 Units/L [facility] ALT 11 7 - 55 Units/L [facility] AST 19 10 - 50 Units/L [facility] Blood 12/12/2024 8:45 AM WET PLANT OPERATOR 12/12/2024 8:55 AM WET PLANT OPERATOR Julio Rodriguez MD LAB BLOOD ORDERABLES F inal Result [facility] [place] [address] * ECG 12-LEAD (12/12/2024 8:16 AM WET PLANT OPERATOR) Narrative [facility] - 12/12/2024 8:16 AM WET PLANT OPERATOR Julio Rodriguez MD 12/12/2024 8:16 AM [...] BJC B[facility] * eGFR (12/05/2024 9:34 AM WET PLANT OPERATOR) eGFR >90 >=60 mL/min/1. 73 m2 [...] last reviewed 2021. Blood 12/05/2024 9:34 AM WET PLANT OPERATOR 12/05/2024 9:39 AM WET PLANT OPERATOR us Stan Meza MD LAB BLOOD ORDERABLES Yolette veronika Result [facility] [place] [address] * Differential, auto (12/05/2024 9:34 AM WET PLANT OPERATOR) Neutrophil abs 2.5 1.5 - 6.5 K/cumm Comment:Testing performed by : [facility], [address] [place] [phone] Lymphocyte abs 0.8 0.8 - 3.3 K/cumm [facility] Comment:Testing performed by : [facility], [address] [place] [phone] Monocyte abs 0.8 0.2 - 0.8 K/cumm [facility] Comment:Testing performed by : [facility], [address] [place] [phone] Eosinophil abs 0.2 0.0 - 0.5 K/cumm [facility] Comment:Testing performed by : [facility], [address] [place] [phone] Basophil abs 0.0 0.0 - 0.1 K/cumm [facility] Comment:Testing performed by : [facility], [address] [place] [phone] Neutrophil pct 58.7 % [facility] Comment: Interpretive Data Percent cell count reference ranges are not reported, since discordance with absolute values may lead to misinterpretation of CBC data. Current Interpretive Data was last revised on 2018. Testing performed by: [facility], [address] [place] [phone] Lymphocyte pct 17.5 % [facility] Comment: Interpretive Data Percent cell count reference ranges are not reported, since discordance with absolute values may lead to misinterpretation of CBC data. Current Interpretive Data was last revised on 2018. Testing performed by: [facility], [address] [place] [phone] Monocyte pct 19.3 % [facility] Comment: Interpretive Data Percent cell count reference ranges are not reported, since discordance with absolute values may lead to misinterpretation of CBC data. Current Interpretive Data was last revised on 2018. Testing performed by: [facility], [address] [place] [phone] Eosinophil pct 4.0 % [facility] Comment: Interpretive Data Percent cell count reference ranges are not reported, since discordance with absolute values may lead to misinterpretation of CBC data. Current Interpretive Data was last revised on 2018. Testing performed by: [facility], [address] [place] [phone] Basophil pct 0.5 % [facility] Comment: Interpretive Data Percent cell count reference ranges are not reported, since discordance with absolute values may lead to misinterpretation of CBC data. Current Interpretive Data was last revised on 2018. Testing performed by: [facility], [address] [place] [phone] Blood 12/05/2024 9:34 AM WET PLANT OPERATOR 12/05/2024 9:39 AM WET PLANT OPERATOR us Stan Meza MD LAB BLOOD ORDERABLES Yolette l Result [facility] [place] [address] * (ABNORMAL) Thyroid Function [place] (12/05/2024 9:34 AM WET PLANT OPERATOR) TSH 0.24(L) 0.30 - 4.20 mcIUnit/mL Blood 12/05/2024 9:34 AM WET PLANT OPERATOR 12/05/2024 9:39 AM WET PLANT OPERATOR us Stan Meza MD LAB BLOOD ORDERABLES Yolette banda Result [facility] [place] [address] * (ABNORMAL) CBC with auto differential (12/05/2024 9:34 AM WET PLANT OPERATOR) WBC 4.3 3.8 - 9.9 K/cumm Comment:Testing performed by : [facility], [address] [place] [address] Hgb 10.0(L) 13.0 - 17.5 g/dL [facility] Comment:Testing performed by : [facility], [address] [place] [address] Hct 31.1(L) 38.9 - 50.3 % [facility] Comment:Testing performed by : [facility], [address] [place] [address] Plt 124(L) 150 - 400 K/cumm [facility] Comment:Testing performed by : [facility], [address] [place] [address] MPV 7.4 6.8 - 10.4 fL [facility] Comment:Testing performed by : [facility], [address] [place] [address] RBC 3.43(L) 4.30 - 5.80 M/cumm [facility] Comment:Testing performed by : [facility], [address] [place] [address] MCV 90.7 81.3 - 96.4 fL [facility] Comment:Testing performed by : [facility], [address] [place] [address] MCH 29.1 27.1 - 33.3 pg [facility] Comment:Testing performed by : [facility], [address] [place] [address] MCHC 32.1(L) 32.3 - 35.7 g/dL [facility] Comment:Testing performed by : [facility], [address] [place] [phone] RDW CV 18.8(H) 11.1 - 14.9 % [facility] Comment:Testing performed by : [facility], [address] [place] [phone] NRBC abs 0.00 0.00 - 0.01 K/cumm [facility] Comment:Testing performed by : [facility], [address] [place] [phone] Blood 12/05/2024 9:34 AM WET PLANT OPERATOR 12/05/2024 9:39 AM WET PLANT OPERATOR Stan Meza MD LAB BLOOD ORDERABLES Yolette l Result Performing Organization Address [facility] Co de Phone Number [facility] [place] [place] [address] * T3, free (12/05/2024 9:34 AM WET PLANT OPERATOR) Free T3 2.7 2.0 - 4.4 pg/mL Blood 12/05/2024 9:34 AM WET PLANT OPERATOR 12/05/2024 9:39 AM WET PLANT OPERATOR Narrative [facility] - 12/05/2024 11:06 AM WET PLANT OPERATOR This test was reflexed from a T4 result. Stan Meza MD LAB BLOOD ORDERABLES Yolette l Result Performing Organization Address [facility]/ZIP Co de Phone Number [facility] [place] [address] * T4, free (12/05/2024 9:34 AM WET PLANT OPERATOR) Free T4 1.26 0.90 - 1.70 ng/dL Blood 12/05/2024 9:34 AM WET PLANT OPERATOR 12/05/2024 9:39 AM WET PLANT OPERATOR Narrative [facility] - 12/05/2024 10:41 AM WET PLANT OPERATOR This test was reflexed from a TSH result. us Stan Meza MD LAB BLOOD ORDERABLES Yolette banda Result [facility] [place] [address] * (ABNORMAL) Comprehensive metabolic panel (12/05/2024 9:34 AM WET PLANT OPERATOR) Sodium 133(L) 135 - 145 mmol/L Potassium, pl 4.0 3.3 - 4.9 mmol/L [facility] Chloride 98 97 - 110 mmol/L [facility] CO2 28 22 - 32 mmol/L [facility] Anion gap 7 2 - 15 mmol/L [facility] BUN 5(L) 6 - 25 mg/dL [facility] Creatinine 0.65(L) 0.80 - 1.30 mg/dL [facility] Glucose 106 70 - 199 mg/dL [facility] Comment: Interpretive Data Fasting glucose >/= [...] 2022. Calcium 9.5 8.5 - 10.3 mg/dL [facility] Bilirubin, total 0.2 0.1 - 1.2 mg/dL [facility] Protein, pl 6.9 6.5 - 8.5 g/dL [facility] Albumin 3.8 3.5 - 5.0 g/dL [facility] Alk phos 127 40 - 130 Units/L [facility] ALT 7 7 - 55 Units/L [facility] AST 17 10 - 50 Units/L [facility] Blood 12/05/2024 9:34 AM WET PLANT OPERATOR 12/05/2024 9:39 AM WET PLANT OPERATOR us Stan Meza MD LAB BLOOD ORDERABLES Oylette l Result [facility] [place] [address] from Last 3 Months Insurance [facility] Care Teams Motion Picture Critic Relationship Specialty Start Date End Date Matthew Mccabe MD [address] [place] [address] PCP - General Family Medicine 05/13/24 Stan Meaz MD [address] [facility] DIV MEDICAL ONCOLOGY, [address], [address], [address] [address] Medical Oncologist/First Press Operator Medical Oncology 06/28/24
--- OUTSIDE RECORDS SUMMARY | 2025-02-25 07:37 | XMS_ITS | Encounter Summary ---
Author Organization [facility] Address [address] [place] [address] Care Team Providers Care Medical Associate Name Role Phone Ian Pollock MD Primary Care Provider Katina Casiano DO Unavailable [phone] Xavi ACOSTA MD, Jameel Gaviria Primary Care Provider + Katina Casiano DO Unavailable [phone] Tracey Ang PA Unavailable [phone] Belkis Angel GENERAL SCRAP WORKER-DIAMOND BLENDER Primary Care Provider + Natalie Baum Primary Care Provider [phone] Encounter Details Date Type Department Care Team (Late st Contact Info) Description 02/18/2022 Telephone [facility] Pulmonary, Critical Care and Sleep Medicine [address] [facility] [place] [id number] Agnieszka Haas MD [address] [place] [address] Social History Tobacco Use Types Packs/Day Years [...] on file 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 Patient Call Back number: [phone] documented in this encounter Plan of Treatment [...] filedocumented in this encounter Care Teams Medical Associate Relationship Specialty Start Date End Date Ian Pollock MD [address] [place] [address] PCP - General 08/21/20 05/29/23 Jameel Hurley III, MD [address] [place] [phone] PCP - General Internal Medicine 06/05/23 08/28/23 Belkis Angel, GENERAL SCRAP WORKER-DIAMOND BLENDER [address] [phone] PCP - General Nurse Practitioner 08/29/23 05/05/24 Natalie Baum [address] [place] [id number] PCP - General 05/06/24 Katina Casiano DO [address] DIV OF [facility] INTERNAL MEDICINE [place], [place] Resident - PCP Internal Medicine 08/10/22 05/29/23 Katina Casiano DO [address] DIV OF [facility] INTERNAL MEDICINE [place], [place] Hospitalist 06/05/23 Tracey Ang PA [address] [place] [address] Physician Welder Pipe Making 08/15/23 documented as of this encounter
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
--- OUTSIDE RECORDS SUMMARY | 2025-02-25 07:38 | XMS_ITS | Encounter Summary ---
Author Organization [facility] Address [address] [place] [address] Care Team Providers Care Teletypesetter Operator Name Role Phone Monica Tellez MARKET GARDEN WORKER-CLOTH FOLDER HAND Primary Care Provi cristobal Ian Pollock MD Primary Care Provider [phone] Ian Pollock MD Primary Care Provider [phone] Ian Pollock MD Primary Care Provider [phone] Ian Pollock MD Primary Care Provider [phone] Ian Pollock MD Primary Care Provider [phone] Katina Casiano DO Unavailable [phone] Xavi ACOSTA MD, Fred R Primary Care Provider + Katina Casiano DO Unavailable [phone] Tracey Ang PA Unavailable [phone] Belkis Angel MARKET GARDEN WORKER-CLOTH FOLDER HAND Primary Care Provider + Natalie Baum Primary Care Provider [phone] Reason for Visit * Reason Onset Date Comments General 11/12/2019 Encounter Details Date Type Department Care Team (Late st Contact Info) Description 11/12/2019 Telephone [facility] [address] [place] [address] Moniac Tellez MARKET GARDEN WORKER-CLOTH FOLDER HAND [address] [place] [address] General Social History Tobacco Use Types Packs/Day [...] on file 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 He was upset that I told him to ask his pulmonary doctor to order low dose CT since pulmonary was the one who usually ordered this. MARISOL Díaz T AID DIRECTOR * Telephone Encounter - Nadeem Hancock - 11/12/2019 1:07 PM CST Pt called to request to be released from the provider's care. Caller stated that the provider has done a couple of things to rub him the wrong way, and he would like another provider. Pt provided call back number [phone] Message routed to provider for review and assistance T AID DIRECTOR documented in this encounter Plan of [...] on filedocumented in this encounter Care Teams Teletypesetter Operator Relationship Specialty Start Date End Date Monica Tellez, MARKET GARDEN WORKER-CLOTH FOLDER HAND PCP - General 07/03/19 11/13/19 Ian Pollock MD PCP - General 11/14/19 12/12/19 Ian Pollock MD PCP - General 12/13/19 05/25/20 Ian Pollock MD PCP - General 05/26/20 06/15/20 Ian Pollock MD [address] [place] [address] PCP - General 07/31/20 08/20/20 Ian Pollock MD [address] [place] [address] PCP - General 08/21/20 05/29/23 Jameel Hurley III, MD [address] [place] [address] PCP - General Internal Medicine 06/05/23 08/28/23 Belkis Angel, MARKET GARDEN WORKER-CLOTH FOLDER HAND [address] [id number] PCP - General Nurse Practitioner 08/29/23 05/05/24 Natalie Baum [address] [place] [address] PCP - General 05/06/24 Katina Casiano DO [address] [facility] INTER[facility] MEDIC[facility] [place], [place] Resident - PCP Internal Medicine 08/10/22 05/29/23 Katina Casiano DO [address] [facility] [place], [place] Hospitalist 06/05/23 Tracey Ang PA [address] [place] [address] Physician Machine Scallop Cutter 08/15/23 documented as of this encounter
--- OUTSIDE RECORDS SUMMARY | 2025-02-25 07:38 | XMS_ITS | Data Portability ---
Author Organization [facility] [employer], Main Office Address [address] [place] [address] Assessment Encounter Date Assessment Date Assessment LastModified by Organization Details LastModified Time 02/06/2025 02/06/2025 This note is dictated and transcribed by [employer]. Conveyor Man variances may occur. Despite proofreading, typographical errors may occur. Occasional wrong-word or '[id number]' substitutions may have occurred due to the inherent limitations of voice recording. Read the chart carefully and recognize, using context, where substitutions have occurred. [email or web address] Not available 02/06/2025 09:27:31 Plan of Treatment Reminders Order Date Submit Date Provider Last Modified By Organization Details Last Modified Time Details Appointments Procedure 15 2024 03:00P M David Nguyen DPM Not available Not available Not available Lab None recorded. Referral None recorded. Procedures None recorded. Surgeries None recorded. Imaging US, duplex, arterial, lower extremity 2024 025 [email or web address] [facility] (Radiology), [address] [place], [address], 02/20/2025 09:05:58 Medication Orders None recorded. Patient TargetsNo targets recorded. Patient Instructions Encounter Date Encounter Id Patient Instructions Last Modified By Organization Details Last Modified Time 02/06/2025 [id number] (LYNNETTE) ankle brachial index* - both sides lower legs [email or web address] Not available 02/20/2025 09:04:42 Reason for Referral None Reported. Problems Name Problem SNOMED Code Status Onset Date Resolution Date Notes Provider Name and Address Organization Details Recorded Time Bilateral ingrowing nail of toe of feet 4061948853649 9102 Active 2024 David Nguyen DPM [address] [facility] [address], [place], [address], [facility] [employer] [facility] 09:27:38 Peripheral arterial occlusive disease 611175875 Active 2024 David Nguyen DPM [address], [place], [address], [employer] [facility] [employer] [facility] 09:28:05 Pain in toe 397901056 Active 2024 David Nguyen DPM [address] [facility], [place], [address], [facility] [facility] [employer] [facility] 09:28:35 Cigarette smoker 56751950 Active 2024 David Nguyen DPM [address] [facility], [place], [address], [employer] [facility] [employer] [facility] 09:29:18 Problem Notes None recorded. Procedures Surgical History Date Name Laterality Status Provider Name and Address Organization Details Recorded Time Hand completed Kelsey Gay [facility] [employer] [facility] 02/06/2025 09:38:07 Knee Surgery completed Kelsey Gay [facility] [employer] [facility] 02/06/2025 09:38:15 Imaging Results None recorded. Procedure Notes None recorded. Medical Equipment None Reported. Allergies No known drug allergies Medications Name Sig Start Date Stop Date Status Note LastModified by Organization Details LastModified Time losartan 50 mg tablet TAKE 1 TABLET BY MOUTH EVERY DAY active Not Available Not Available No t Available ziprasidone 80 mg capsule TAKE 1 CAPSULE BY MOUTH WITH FOOD TWICE A DAY FOR 30 DAYS active Not Available Not Available No t Available hydroxyzine pamoate 100 mg capsule TAKE ONE CAPSULE BY MOUTH DAILY FOR ONE WEEK THEN DISCONTINUE active Not Available Not Available Not Available atorvastatin 40 mg tablet TAKE 1 TABLET BY MOUTH EVERY DAY active Not Available Not Available No t Available clotrimazole 10 mg humberto USE 10 MG (1 HMUBERTO) BY MOUTH TO AFFECTED MUCOSAL AREA THREE TIMES A DAY active Not Available Not Available Not Available prednisone 10 mg tablet PLEASE SEE ATTACHED FOR DETAILED DIRECTIONS active Not Available Not Available N ot Available doxycycline hyclate 100 mg capsule TAKE 1 CAPSULE BY MOUTH TWICE A DAY FOR 7 DAYS active Not Available Not Available No t Available carvedilol 12.5 mg tablet TAKE 1 TABLET BY MOUTH TWICE A DAY WITH MORNING AND EVENING MEAL active Not Available Not Available No t Available nicotine 14 mg/24 hr daily transdermal patch APPLY 1 PATCH TRANSDERMAL LY DAILY active Not Available Not Available No t Available ipratropium 0.5 mg-albuterol 3 mg (2.5 mg base)/3 mL nebulization soln INHALE 3 ML VIA NEBULIZER FOUR TIMES DAILY NEEDED FOR SHORTNESS OF BREATH OR WHEEZING active Not Available Not Available Not Available albuterol sulfate 2.5 mg/3 mL (0.083 %) solution for nebulization 2.5 MG (3 ML) INHALED EVERY 4 - 6 HOURS NEEDED FOR SHORTNESS OF BREATH OR WHEEZING active Not Available Not Available Not Available ondansetron HCl 8 mg tablet PLEASE SEE ATTACHED FOR DETAILED DIRECTIONS active Not Available Not Available N ot Available prednisone 20 mg tablet TAKE 2 TABLETS BY MOUTH DAILY FOR 3 DAYS active Not Available Not Available N ot Available prochlorpera zine maleate 10 mg tablet TAKE 1 TABLET BY MOUTH EVERY 6 (SIX) HOURS NEEDED FOR NAUSEA OR VOMITING. USE FIRST FOR NAUSEA active Not Available Not Available N ot Available morphine ER 30 mg tablet,exten ded release TAKE 1 TABLET BY MOUTH EVERY 12 HOURS. active Not Available Not Available No t Available omeprazole 40 mg capsule,saira yed release TAKE 1 CAPSULE BY MOUTH EVERY DAY BEFORE BREAKFAST active Not Available Not Available No t Available tramadol 50 mg tablet TAKE 1 TABLET BY MOUTH TWICE A DAY NEEDED FOR PAIN active Not Available Not Available No t Available dexamethason e 4 mg tablet TAKE 8 MG (2 TABS) BY MOUTH ONCE ON DAY 2, THEN 8 MG (2 TABS) TWICE DAILY ON DAYS 3 AND 4 active Not Available Not Available No t Available buspirone 10 mg tablet TAKE 1 TABLET BY MOUTH TWICE A DAY FOR 30 DAYS active Not Available Not Available No t Available prednisone 50 mg tablet TAKE 1 TABLET BY MOUTH EVERY DAY active Not Available Not Available No t Available buspirone 7.5 mg tablet TAKE 1 TABLET BY MOUTH TWICE A DAY FOR 30 DAYS active Not Available Not Available No t Available folic acid 1 mg tablet PLEASE SEE ATTACHED FOR DETAILED DIRECTIONS active Not Available Not Available N ot Available cefuroxime axetil 500 mg tablet TAKE 1 TABLET BY MOUTH TWICE A DAY FOR 7 DAYS active Not Available Not Available No t Available albuterol sulfate HFA 90 mcg/actuatio n aerosol inhaler INHALE 1-2 PUFF(S) BY MOUTH EVERY 4 - 6 HOURS NEEDED FOR SHORTNESS OF BREATH OR WHEEZING active Not Available Not Available Not Available ondansetron 4 mg disintegrati ng tablet DISSOLVE 1 TABLET ON THE TONGUE EVERY 4 HOURS FOR 3 DOSES TAKE 1ST DOSE 1-2 HOURS BEFORE RADIATION active Not Available Not Available No t Available cefdinir 300 mg capsule TAKE 1 CAPSULE BY MOUTH 2 TIMES DAILY FOR 5 DAYS. active Not Available Not Available Not Available doxycycline hyclate 100 mg tablet TAKE 1 TABLET BY MOUTH TWICE A DAY active Not Available Not Available No t Available lamotrigine 100 mg tablet TAKE 1 TABLET BY MOUTH TWICE A DAY active Not Available Not Available No t Available oxycodone 5 mg tablet TAKE 1 TO 2 TABLETS (5-10 MG TOTAL) BY MOUTH EVERY 4 HOURS NEEDED FOR PAIN active Not Available Not Available No t Available hydroxyzine pamoate 25 mg capsule TAKE 1 CAPSULE BY MOUTH THREE TIMES DAILY NEEDED 30 DAYS active Not Available Not Available No t Available azithromycin 500 mg tablet TAKE 1 TABLET (500 MG TOTAL) BY MOUTH DAILY FOR 1 DAY. active Not Available Not Available No t Available Klor-Con M20 mEq tablet,exten ded release TAKE 1 TABLET BY MOUTH EVERY DAY active Not Available Not Available No t Available alfuzosin ER 10 mg tablet,exten ded release 24 hr TAKE 1 TABLET BY MOUTH EVERY DAY active Not Available Not Available No t Available mirtazapine 7.5 mg tablet TAKE 1 TABLET BY MOUTH EVERYDAY AT BEDTIME active Not Available Not Available No t Available Symbicort 160 mcg-4.5 mcg/actuatio n HFA aerosol inhaler INHALE 2 PUFFS BY MOUTH TWICE A DAY. RINSE AND SPIT AFTER USE active Not Available Not Available No t Available cholecalcife rol (vitamin D3) 50 mcg (2,000 unit) capsule TAKE 1 CAPSULE BY MOUTH EVERY DAY FOR 30 DAYS active Not Available Not Available No t Available Senexon-S 8.6 mg-50 mg tablet TAKE 2 TABLETS BY MOUTH EVERY DAY active Not Available Not Available No t Available Eliquis 5 mg tablet TAKE 1 TABLET BY MOUTH TWICE A DAY active Not Available Not Available No t Available Vitals Date Recorded Heart rate Respiratory rate Oxygen saturation Oxygen saturation in Arterial blood by Pulse oximetry Body height Body mass index (BMI) Body weight Systolic blood pressure Diastolic blood pressure Provider Name and Address Organization Details Last Updated DateTime 5 79 /min 14 /min 98 % 98 % 175.26 cm 28.8 kg/m2 03723.5 1 g 148 mm[Hg] 95 mm[Hg] Kelsey Gay [facility] [employer] [facility] 09:12:43 Social History Question Answer Notes LastModified by Organizat ion Details LastModified Time Tobacco Smoking Status Current Every Day Smoker Kelsey Gay dean [facility] [employer] [facility] 02/06/2025 09:37:54 What Is Your Level Of Alcohol Consumption? None Information not available 02/06/2025 What Is Your Level Of Caffeine Consumption? Occasional Information not available 02/06/2025 What Was The Date Of Your Most Recent Tobacco Screening? 02/06/2025 Information not available 02/06/2025 Do You Use Any Illicit Or Recreational Drugs? No Information not available 02/06/2025 Has Tobacco Cessation Counseling Been Provided? No Information not available 02/06/2025 Do You Or Have You Ever Used Any Other Forms Of Tobacco Or Nicotine? No Information not available 02/06/2025 Sex: Unknown Functional Status None recorded. Mental Status None recorded. Family History Relationship Description Onset Age of this Age Resolved Age Notes LastModified by Organization Details LastModified Time Unspecified Relation Diabetes mellitus Not available 2024 09:33:16 Unspecified Relation Cerebrovascu lar accident Not available 07/2025 09:36:40 Unspecified Relation Arthritis Not available 025 09:36:47 Unspecified Relation Hypertensive disorder Not available 2024 09:36:55 Father Heart disease Not available 2024 09:37:15 Mother Malignant neoplastic disease Not available 2024 09:37:34 Brother Malignant neoplastic disease Not available 2024 09:37:34 Sister Malignant neoplastic disease Not available 2024 09:37:34 Medical History Condition Response ARTHRITIS Y ALLERGIES/HAYFEVER Y LUNG DISEASE/DISORDER Y HEARTBURN / REFLUX Y RADIATION / CHEMOTHERAPY Y BLOOD CLOTS Y CAROTID BLOCKAGE Y PULMONARY DISEASE Y BOWEL PROBLEMS Y BACK / NECK PROBLEMS Y HEART DISEASE/HEART PROBLEMS Y CANCER: SPECIFY Y ANXIETY DISORDER Y Past Encounters Encounter ID Performer Location Encounter Start Date Encounter Closed Date Diagnosis/Indication Diagnosis SNOMED-CT Code Diagnosis ICD10 Code Diagnosis Note [id number] David Nguyen DPM [facility] [address] [place] [address] 02/06/2025 08:59:45 02/10/2025 12:54:52 Pain in toe 900303660 M79.674 M79.675 bilateral great toes Bilateral ingrowing nail of toe of feet 8467520238 2945035 L60.0 medial border both great toenailspl an February 25 partial chemical matrixecto my medial border both great toes- pending arterial studiesedu cated on treatment optionswil l obtain vascular studies to ensure adequate healing secondary to lower extremity peripheral arterial disease Peripheral arterial occlusive disease 539781681 I73.9 obtain noninvasiv e vascular studies to ensure adequate healing for upcoming in office procedures tatmichael has difficulty walking and has intermitte nt claudicati on symptomsde nies any open wounds Cigarette smoker 3454591 7 F17.210 4-5 dailyhas COPD and lung cancerreco mmend discontinu e smokingsid e effects of smoking reviewed with the patient Health Concerns Section Related Observation LastModified by Organization Detai ls LastModified Time None Recorded Concern Status LastModified by Organization Details LastModified Time None Recorded Advance Directives Directive None Recorded Payers Encounter Date Sequence Insurance Name Policy Number Policy Holden Covered Member ID Holden Member ID Guarantor Name 02/06/2025 1 [facility] - DOS ON OR AFTER 2020 - DUAL ELIGIBLE (MEDICARE REPLACEMENT/ ADVANTAGE - HMO) Josafat Calvo [id number] Josafat Calvo Notes Date Note Type Note Provider Name and Address Organization Details Recorded Time 02/06/2025 text/html . Patient is a 64-year-old male who presents the office with complaints of ingrown toenails to both great toes he denies any redness or infection he states that has a mild discomfort with weight-bearing he states that he tried to attempt cutting the nail corners himself but he was not able to get him all the way removed. Patient states when he is at rest it does feel better. Patient denies any other complaints. David Nguyen DPM [address], [address], [place] - [facility] 02/06/2025 10:00:48
--- OUTSIDE RECORDS SUMMARY | 2025-02-25 07:38 | XMS_ITS | Encounter Summary ---
Author Organization [facility] Address [address] [place] [address] Care Team Providers Care Stiff Neck Loader Name Role Phone Ian Pollock MD Primary Care Provider Ian Pollock MD Primary Care Provider [phone] Ian Pollock MD Primary Care Provider [phone] Ian Pollock MD Primary Care Provider [phone] Katina Casiano DO Unavailable [phone] Xavi ACOSTA MD, Fred R Primary Care Provider + Katina Casiano DO Unavailable [phone] Tracey Ang PA Unavailable [phone] Belkis Angel SLIVER LAPPER-GAMBLING MONITOR Primary Care Provider + Natalie Baum Primary Care Provider [phone] Reason for Visit * Reason Onset Date Comments Referral 12/13/2019 Encounter Details Date Type Department Care Team (Late st Contact Info) Description 12/13/2019 Telephone [facility] [address] [place] [address] Monica Tellez, SLIVER LAPPER-GAMBLING MONITOR [address] [place] [address] Referral Social History Tobacco Use [...] on file 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 HEARING AID ASSISTANT Gender Identity Not on file Sexual [...] Janice Conn RN - 12/19/2019 8:51 AM HEARING AID ASSISTANT Was able to speak with patient regarding his directive to call his insurance company for them to give him a listing of the Cardiologists in [place], and also tell him that he would be given to another PCP because Dr. Pollock will be going to very part-time in March, but patient apprised this TNs thathe had called for a more current appointment, and is to see Dr. Pollock today. ING AID ASSISTANT * Telephone Encounter - Monica Tellez APRN-CNP - 12/16/2019 4:30 PM HEARING AID ASSISTANT Do not know any stove carriage operator on [facility]. He will need to call his insurance company for list of [place] stove carriage operator. His appt was to be changed from Dr Pollock to a resident since Dr Pollock will be going to very economics department chair in March and should not have new patients. MARISOL Díaz ING AID ASSISTANT * Telephone Encounter - Janice Conn RN - 12/13/2019 10:45 AM HEARING AID ASSISTANT Routing message to Dr Pollock ING AID ASSISTANT * Telephone Encounter - Meenu Hidalgo - 12/13/2019 10:36 AM CST PT is calling and wanting to be referred to a stove carriage operator on the [facility]. PT stats it wouldbe more convenient and easier for the med cab. PT CBN:[phone] ING AID ASSISTANT documented in this encounter Plan of [...] on filedocumented in this encounter Care Teams Stiff Neck Loader Relationship Specialty Start Date End Date Ian Pollock MD PCP - General 12/13/19 05/25/20 Ian Pollock MD PCP - General 05/26/20 06/15/20 Ian Pollock MD [address] [facility] [place] [address] PCP - General 07/31/20 08/20/20 Ian Pollock MD [address] [facility] [place] [address] PCP - General 08/21/20 05/29/23 Jameel Hurley III, MD [address] [facility] [place] [id number] PCP - General Internal Medicine 06/05/23 08/28/23 Belkis Angel, SLIVER LAPPER-GAMBLING MONITOR [address] [place] [address] PCP - General Nurse Practitioner 08/29/23 05/05/24 Natalie Baum [address] [place] [address] PCP - General 05/06/24 Katina Casiano DO [address] [facility] [place] Resident - PCP Internal Medicine 08/10/22 05/29/23 Katina Casiano DO [address] [facility] [place], [place] Hospitalist 06/05/23 Tracey Ang PA [address] [facility] [address] [place] [address] Physician Salvage Diver 08/15/23 documented as of this encounter
--- OUTSIDE RECORDS SUMMARY | 2025-02-25 07:38 | XMS_ITS | Clinical Summary ---
Author Organization [facility] Address [address], [facility] [address] [place] [address] Phone Care Team Providers Care Instrument Tester Name Role Phone Patito Randalli [place] GROUND LAYER, SHOT COAT TENDER Unavailable Allergies Active Allergy Reactions Criticality Noted [...] Comments Blood Pressure 142/74 11/06/2017 2:41 PM DRY MIXER Pulse 77 11/06/2017 2:41 PM DRY MIXER Temperature 36.1 C (97 F) 11/06/2017 2:41 PM DRY MIXER Respiratory Rate 18 11/06/2017 2:41 PM DRY MIXER Oxygen Saturation 99% 11/06/2017 8:00 AM DRY MIXER Inhaled Oxygen Concentration - - Weight 113.4 kg (250 lb) 11/03/2017 6:25 PM DRY MIXER Height 175.3 cm (5' 9 ) 11/03/2017 6:25 PM DRY MIXER Body Mass Index 36.92 11/03/2017 6:25 PM DRY MIXER Plan of Treatment Health Maintenance Due Date Last Done Comments Hepatitis C Virus (HCV) Screening 1961 Pneumococcal Immunization (50+ years) (1 of 2 - PCV) 1980 Cologuard 2011 Immunochemical Fecal Occult Blood 2011 Zoster Immunization (1 of 2) 2011 Respiratory Syncytial Virus (RSV) Immunization (Adult) (1 [...] CHEST W/O CONTRAST STAT 11/03/2017 11:30 PM DRY MIXER from Last 3 Months or Most Recently Relevant to Health Maintenance Results * CT CHEST W/O CONTRAST (11/03/2017 11:30 PM DRY MIXER) Anatomical Region Laterality Modality Chest N/A Computed Tomogra phy 11/04/2017 12:2 4 AM DRY MIXER Impressions 11/04/2017 12:28 AM DRY MIXER IMPRESSION: 1. A few nonspecific scattered ground-glass infiltrates in the bilateral upper lobes, which may represent pneumonia. 2. Mild paraseptal emphysema. Automated exposure control was used as a dose optimization technique for this examination. Narrative 11/04/2017 12:28 AM DRY MIXER EXAMINATION: CT chest without contrast HISTORY: Cough, [...] 11/04/2017 12:24 AM: Ellyn Epperson M.D. Radiologist MA:yumiko APO Procedure Note Sukh Canseco MD - [...] Most Recently Relevant to Health Maintenance Insurance [address] [place] [address] [place] [id number] Advance Directives * Full Code (Latest Code Status on File) Date Activated Date Inactivated Comments 11/04/2017 9:36 AM 11/06/2017 6:27 PM CPR-Full Treat ment: FULL ARREST: Attempt Resuscitation/CPR wit intubation and mechanical ventilation. PRE-ARREST: Use entire range of life support measures to stabilize the patient. Care Teams Instrument Tester Relationship Specialty Start Date End Date Montserrat Randall APRN, SHOT COAT TENDER Nurse Practitioner Advanced Practice Nurse 10/21/16
--- OUTSIDE RECORDS SUMMARY | 2025-02-25 07:38 | XMS_ITS | Clinical Summary ---
Author Organization [facility] Address [address] [place] [address] Phone Care Team Providers Care Machine Stone Polisher Name Role Phone SADIE JACK MD Unavailable [...] 10:36AM By PAUL DAVIS-ANAYA ; [facility] Gabapentin 600 MG Oral Tablet 05/26/2020 Provider: PAUL MAJANO Diagnosis: Radiculopathy, l umbar region TAKE 1 TABLET BY MOUTH THREE TIMES DAILY. Last Documented On 0 2:54PM By PAUL NUNEZ ; [facility] Triamcinolone Acetonide 0.1% External Cream 10/07/2019 Provider: Diagnosis: Last Documented On 9 11:28AM By Faye MEJÍA ; [facility] Spironolactone 50 MG Oral Tablet 10/07/2019 Provider : Diagnosis: Last Documented On 9 11:27AM By Faye MEJÍA ; [facility] Omeprazole 40 MG Oral Capsule Delayed Release 10/07/20 Provider: Diagnosis: Last Documented On 9 11:27AM By Faye MEJÍA ; [facility] Ibuprofen 600 MG Oral Tablet 10/07/2019 Provider: Diagnosis: Last Documented On 9 11:27AM By Faye MEJÍA ; [facility] hydrOXYzine Pamoate 50 MG Oral Capsule 10/07/2019 Pr ovider: Diagnosis: Last Documented On 9 11:26AM By Faye MEJÍA ; [facility] Carvedilol 25 MG Oral Tablet 10/07/2019 Provider: Diagnosis: Last Documented On 9 11:26AM By Faye MEJÍA ; [facility] Medications Administered Includes: Administered Medications from this encounter No Administered Medications Recorded Results Includes: Results discussed during this encounter No Results Recorded For Specified Dates History of Present Illness Includes: History of Present Illness from this encounter No History of Present Illness Recorded Social History Description Last Updated Smoker 04/29/2020 Last Documented On 0 10:13AM ; [facility] Smoking status : Current everyday smoker 10/07/2019 Last Documented On 0 10:13AM ; [facility] Medical History Includes: Medical History addressed during [...] Documented On 0 8:29AM ; [facility] Lisinopril Allergy 10/07/2019 Active Last Documented On 0 8:29AM ; [facility] Encounters Encounter Provider Location Date Check-In Time Check-Out Time Diagnosis RX ISSUE/REFILL PAUL DAVIS-ANAYA 05/11/2020 10:13AM 11:59PM Insurance Includes: Active Insurance Policies Plan Name Member ID Group # Subscriber Relationship Effect jeannine Dates 1 - [facility] [id number] RYLEE GRAY Self Clinical Notes Includes: Clinical Notes from this encounter No Clinical Notes Recorded
--- OUTSIDE RECORDS SUMMARY | 2025-02-25 07:38 | XMS_ITS | CONTINUITY OF CARE DOCUMENT ---
Author Name eber velázquez Address Unknown Organization [facility] Address [address] [place] [address] Phone [phone] Care Team Providers Care Heating Equipment Installer Name Role Phone Paul Holliday MD Unavailable JEAN ARMENTA MD Unavailable [phone] JEAN ARMENTA MD Unavailable [phone] PROBLEMS Condition Status Date Provider Notes HTN ESSENTIAL active ? Paul Holliday MD CHEST PAIN-TYPE TO BE DETERMINED active ? Jess Holliday MD -2006 active ? Paul Holliday MD BACK PAIN, CHRONIC active ? Paul Holliday MD Family History [...] MD DEPRESSION active ? Paul Holliday MD ENCOUNTERS Date Type Provider Location Encounter Diag nosis - In-person encounter Office Visit Paul Holliday MD [place] [facility] Family History of CVA or Stroke:Family History of Hyperlipidemia:Family History of Hypertension:Family History of Sudden Cardiac :Family History of Hypertension: - In-person encounter Office Visit Paul Holliday MD [place] [facility] - In-person encounter Office Visit Paul Holliday MD [place] [facility] HTN ESSENTIALCHEST PAIN-TYPE TO BE DETERMINEDPE-2007BACK [...] solorzano pulse rate 76 /min Jacinta Justin [facility] weight E&M 255 [lb_av] Jacinta Justin [facility] height E&M 68 [in_i] Jacinta Margoth [facility] Body Mass Index (Ratio) 43.34 kg/m2 Sobia [...] Mahmood RN blood pressure, systolic 157 mm[Hg] Dyole Mahmood RN pulse rate 87 /min Doyle [...] Location alanine aminotransferase (SGPT), serum 12 1/L [facility] aspartate aminotransferase (SGOT), serum 15 1/L [facility] creatinine, serum 0.83 mg/dL [facility] potassium, serum 3.2 mmol/L [facility] sodium, serum 134 mmol/L [facility] international normalized ratio (INR) 0.99 [facility] platelet count 193 10*3/mm3 [facility] hematocrit, blood 42.2 % [facility] triglyceride, serum, fasting 113 mg/dL [facility] HDL cholesterol, serum 44 mg/dL [facility] lipoprotein, beta, serum, point, quantitative, calculated 96 mg/dL [facility] cholesterol, serum 163 mg/dL [facility] thyroid stimulating hormone, serum 1.430 u[IU]/mL [facility] alanine aminotransferase (SGPT), serum 72 1/L [facility] aspartate aminotransferase (SGOT), serum 66 1/L [facility] creatinine, serum 1.02 mg/dL [facility] potassium, serum 3.7 mmol/L [facility] sodium, serum 132 mmol/L [facility] HISTORY OF MEDICATION USE Medication Status [...] smoking history, tot al pack/year 36 Doyle Mamhood RN cigarette use yes Doyle Mahmood RN [...] Payer name Policy type / Coverage type [place] red democrat [place] [employer] (2) Medicaid [id number] ADVANCE DIRECTIVES Name Date DISCUSSED - NO [...] ..... One tab. daily Orders: E KG ([id number]) S TR - Nuclear (29358) Paul Holliday MD chest pain : T [...] chest pain : O rders: Adolfo AMBROSIO (CPT-[id number]) Paul Holliday MD chest pain : H [...] Prior BP: / () Orders: E DAILY ([id number]) Paul Holliday MD chest pain :states d [...]
--- OUTSIDE RECORDS SUMMARY | 2025-02-25 07:38 | XMS_ITS | Encounter Summary ---
Author Organization [facility] Address [address] [place] [address] Care Team Providers Care Driver License Agent Name Role Phone Monica Tellez MEDICINE MAN-ELECTRIC TRAIN DRIVER Primary Care Provi cristobal Ian Pollock MD Primary Care Provider [phone] Ian Pollock MD Primary Care Provider [phone] Ian Pollock MD Primary Care Provider [phone] Ian Pollock MD Primary Care Provider [phone] Ian Pollock MD Primary Care Provider [phone] Katina Casiano DO Unavailable [phone] Xavi ACOSTA MD, Fred R Primary Care Provider + Katina Casiano DO Unavailable [phone] Tracey Ang PA Unavailable [phone] Belkis Angel MEDICINE MAN-ELECTRIC TRAIN DRIVER Primary Care Provider + Natalie Baum Primary Care Provider [phone] Reason for Visit * Reason Onset Date Comments Results 10/25/2019 Encounter Details Date Type Department Care Team (Late st Contact Info) Description 10/25/2019 Telephone [facility] [address] [address] Monica Tellez MEDICINE MAN-ELECTRIC TRAIN DRIVER [address] [place] [address] Results Social History Tobacco Use Types Packs/Day [...] on file 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 Answer Date of Assessment Author No 11/05/2015 3:52 AM Gavin Leavitt RN * Is person blind or [...] Janice Conn RN - 10/31/2019 12:18 PM MEDICAL MALPRACTICE PARALEGAL Pt calling again stating that Lashon Tellez had sent him for a Cardiac Ultrasound. This TNs. Found HCTTE 2D w/Con Doppler/color CMPT Done 10/25/2019, in chart under Cardiac tab, Faxed to [facility]. Pt request callback: [phone]. Pt seems very nervous about his results. CAL MALPRACTICE PARALEGAL * Telephone Encounter - Monica Tellez APRN-CNP - 10/25/2019 1:56 PM MEDICAL MALPRACTICE PARALEGAL Please find out what ultrasound he had. Have not ultrasound results. Who would have ordered this and where?? [facility]IS[facility] D[facility]az CAL MALPRACTICE PARALEGAL * Telephone Encounter - Maria Isabel William RN - 10/25/2019 1:47 PM CST Patient nervous about ultrasound result Please call [phone] CAL MALPRACTICE PARALEGAL documented in this encounter Plan of Treatment [...] on filedocumented in this encounter Care Teams Driver License Agent Relationship Specialty Start Date End Date Monica Tellez APRN-CNP PCP - General 07/03/19 11/13/19 Ian Pollock MD PCP - General 11/14/19 12/12/19 Ian Pollock MD PCP - General 12/13/19 05/25/20 Ian Pollock MD PCP - General 05/26/20 06/15/20 Ian Pollock MD [address] [place] [address] PCP - General 07/31/20 08/20/20 Ian Pollock MD [address] [place] [address] PCP - General 08/21/20 05/29/23 Jameel Hurley III, MD [address] [place] [id number] PCP - General Internal Medicine 06/05/23 08/28/23 Belkis Angel, MEDICINE MAN-ELECTRIC TRAIN DRIVER [address] [place] [phone] PCP - General Nurse Practitioner 08/29/23 05/05/24 Natalie Baum [address] [place] [address] PCP - General 05/06/24 Katina Casiano DO [address] DIV OF GEN INTERNAL MEDICINE [place], [place] Resident - PCP Internal Medicine 08/10/22 05/29/23 Katina Casiano DO [address] DIV OF [facility] INTERNAL MEDICINE [place], [place] Hospitalist 06/05/23 Tracey Ang PA [address] [place] [address] Physician Cake Press Operator 08/15/23 documented as of this encounter
--- OUTSIDE RECORDS SUMMARY | 2025-02-25 07:38 | XMS_ITS | Encounter Summary ---
Author Organization [facility] Address [address] [place] [address] Care Team Providers Care Keyseater Operator Name Role Phone Ian Pollock MD Primary Care Provider [phone] Ian Pollock MD Primary Care Provider [phone] Ian Pollock MD Primary Care Provider [phone] Ian Pollock MD Primary Care Provider [phone] Ian Pollock MD Primary Care Provider [phone] Katina Casiano DO Unavailable [phone] Xavi ACOSTA MD, Jameel R Primary Care Provider + Katina Casiano DO Unavailable [phone] Tracey Ang PA Unavailable [phone] Belkis Angel INVESTMENT ADVISOR-CHIEF OF ANESTHESIOLOGY Primary Care Provider + Natalie Baum Primary Care Provider [phone] Reason for Visit * Reason Onset Date Comments General 12/02/2019 Encounter Details Date Type Department Care Team (Late st Contact Info) Description 12/02/2019 Telephone [facility] [address] [place] [address] Ian Pollock MD [address] [place] [address] General Social History Tobacco Use Types Packs/Day [...] on file 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 CB# [phone] Routed to provider for further review TRIC MULE OPERATOR documented in this encounter Plan of [...] on filedocumented in this encounter Care Teams Keyseater Operator Relationship Specialty Start Date End Date Ian Pollock MD PCP - General 11/14/19 12/12/19 Ian Pollock MD PCP - General 12/13/19 05/25/20 Ian Pollock MD PCP - General 05/26/20 06/15/20 Ian Pollock MD [address] DIV OF [facility] [place] [address] PCP - General 07/31/20 08/20/20 Ian Pollock MD [address] DIV OF [facility] [place] [place] [address] PCP - General 08/21/20 05/29/23 Jameel Hurley III, MD [address] DIV OF [facility] [place] [place] [address] PCP - General Internal Medicine 06/05/23 08/28/23 Belkis Angel, INVESTMENT ADVISOR-CHIEF OF ANESTHESIOLOGY [address] [facility] [address] [place] [address] PCP - General Nurse Practitioner 08/29/23 05/05/24 Natalie Baum [address] [place] [address] PCP - General 05/06/24 Katina Casiano DO [address] [facility] [address] DIV OF GEN INTERNAL MEDICINE [place] Resident - PCP Internal Medicine 08/10/22 05/29/23 Katina Casiano DO [address] [facility] [address] DIV OF GEN INTERNAL MEDICINE [place], [place] Hospitalist 06/05/23 Tracey Ang PA [address] [facility] [address] [place] [address] Physician Putty Maker 08/15/23 documented as of this encounter
--- OUTSIDE RECORDS SUMMARY | 2025-02-25 07:38 | XMS_ITS | Encounter Summary ---
Author Organization [facility] Address [address] [place] [address] Care Team Providers Care Eating Disorder Specialist Name Role Phone Monica Tellez INTERNATIONAL BANKER-PROGRAM CLERK Primary Care Provi cristobal Ian Pollock MD Primary Care Provider [phone] Ian Pollock MD Primary Care Provider [phone] Ian Pollock MD Primary Care Provider [phone] Ian Pollock MD Primary Care Provider [phone] Ian Pollock MD Primary Care Provider [phone] Katina Casiano DO Unavailable [phone] Xavi ACOSTA MD, Fred R Primary Care Provider + Katina Casiano DO Unavailable [phone] Tracey Ang PA Unavailable [phone] Belkis Angel INTERNATIONAL BANKER-PROGRAM CLERK Primary Care Provider + Natalie Baum Primary Care Provider [phone] Reason for Visit * Reason Onset Date Comments Appointment 09/11/2019 Encounter Details Date Type Department Care Team (Late st Contact Info) Description 09/11/2019 Telephone [facility] [address] [address] Monica Tellez INTERNATIONAL BANKER-PROGRAM CLERK [address] [place] [address] Appointment Social History Tobacco Use Types Packs/Day [...] on file 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 Gender Identity Not on file Sexual Orientation [...] disconnected Called again warm transfer to scheduling EN GRINDER documented in this encounter Plan of Treatment [...] on filedocumented in this encounter Care Teams Eating Disorder Specialist Relationship Specialty Start Date End Date Monica Tellez, INTERNATIONAL BANKER-PROGRAM CLERK PCP - General 07/03/19 11/13/19 Ian Pollock MD PCP - General 11/14/19 12/12/19 Ian Pollock MD PCP - General 12/13/19 05/25/20 Ian Pollock MD PCP - General 05/26/20 06/15/20 Ian Pollock MD [address] DIV OF [facility] [place] [place] [address] PCP - General 07/31/20 08/20/20 Ian Pollock MD [address] DIV OF [facility] [place] [place] [address] PCP - General 08/21/20 05/29/23 Jameel Hurely III, MD [address] DIV OF [facility] [place] [address] PCP - General Internal Medicine 06/05/23 08/28/23 Belkis Angel, INTERNATIONAL BANKER-PROGRAM CLERK [address] [facility] 2nd [place] [address] PCP - General Nurse Practitioner 08/29/23 05/05/24 Natalie Baum [address] [place] [address] PCP - General 05/06/24 Katina Casiano DO [address] [facility] [address] DIV OF GEN INTERNAL MEDICINE [place] Resident - PCP Internal Medicine 08/10/22 05/29/23 Katina Casiano DO [address] [facility] [address] DIV OF GEN INTERNAL MEDICINE [place], [place] Hospitalist 06/05/23 Tracey Ang PA [address] [facility] [address] [place] [address] Physician Health Safety Instructor 08/15/23 documented as of this encounter
[2025-02-25] MEDS: methylPREDNISolone SOD SUCC 125 MG VIAL IV PUSH (08:05)
[2025-02-25] MEDS: IPRATROPIUM BR 0.02% INH SOLN 0.5 MG/2.5 ML VIAL 1.5 MG INHALATION ×2 (08:11→10:10)
[2025-02-25] MEDS: ALBUTEROL SULFATE NEB 2.5 MG/3 ML INH 15 MG INHALATION ×2 (08:15→10:10)
[2025-02-25 08:20] LABS: NT Pro B Type Natriuretic Pept 482 pg/mL (19.9-100)
--- NOTE | 2025-02-25 09:43 | ED_ITS ---
HPI - SOB/Dyspnea General Chief Complaint: Shortness of Breath/Dyspnea Stated Complaint: SOB Time Seen by Provider: 02/25/25 07:08 History of Present Illness HPI Narrative: Patient is a 64-year-old male who presents ER shortness of breath. Worsening over last 2 days. No improvement with nebulizer treatment home. No chest pain but does feel tight and is breathing rapidly. Denies fevers or chills or sweats. No known sick contacts. Related Data Home Medications ?Medication ?Instructions ?Recorded ?Confirmed ?Last Taken ?Type latanoprost 0.005 % eye drops 1 drp ophthalmic (eye) DAILY 05/05/20 01/29/25 Unknown History alfuzosin 10 mg tablet,extended 10 mg PO DAILY 12/12/23 01/29/25 Unknown History release 24 hr aspirin 81 mg tablet,delayed 81 mg PO DAILY 12/12/23 01/29/25 Unknown History release (Adult Aspirin Regimen) atorvastatin 40 mg tablet 40 mg PO DAILY 12/12/23 01/29/25 Unknown History buspirone 7.5 mg tablet 7.5 mg PO BID 12/12/23 01/29/25 Unknown History carvedilol 12.5 mg tablet 12.5 mg PO Q12H 12/12/23 01/29/25 Unknown History eplerenone 25 mg tablet 25 mg PO DAILY 12/12/23 01/29/25 Unknown History hydroxyzine pamoate 100 mg capsule 100 mg PO Q12H 12/12/23 01/29/25 Unknown History lamotrigine 100 mg tablet 100 mg PO DAILY 12/12/23 01/29/25 Unknown History loratadine 10 mg tablet 10 mg PO DAILY 12/12/23 01/29/25 Unknown History ziprasidone HCl 80 mg capsule 80 mg PO BID 12/12/23 01/29/25 Unknown History fluticasone furoate 27.5 1 spray intranasal DAILY PRN 04/30/24 01/29/25 Unknown History mcg/actuation nasal Congestion spray,suspension tadalafil 20 mg tablet 20 mg PO DAILY PRN Erectile 04/30/24 01/29/25 Unknown History Dysfunction acetaminophen 500 mg tablet 500 mg PO Q6H PRN Pain (Scale 09/13/24 01/29/25 Unknown History Score 1-3) morphine 30 mg tablet,extended 30 mg PO Q12H 09/13/24 01/29/25 Unknown History release ondansetron HCl 8 mg tablet 8 mg PO BID PRN Nausea And Vomiting 09/13/24 01/29/25 Unknown History oxycodone 5 mg tablet 10 mg PO Q4H PRN Pain (Scale Score 09/13/24 01/29/25 Unknown History 7-10) Allergies Allergy/AdvReac Type Severity Reaction Status Date / Time lisinopril Allergy Severe ANGIOEDEMA Verified 09/13/24 10:54 Penicillins Allergy Unknown Swelling Verified 09/13/24 10:54 Review of Systems 2 Review of Systems: All systems reviewed & are unremarkable except as noted in HPI and below Constitutional: Constitutional: Reports no additional constitutional complaints Cardiovascular: Cardiovascular: Reports no additional cardiovascular complaints Respiratory: Respiratory: Reports no additional respiratory complaints Gastrointestinal: Gastrointestinal: Reports no additional gastrointestinal complaints Musculoskeletal: Musculoskeletal: Reports no additional musculoskeletal complaints PMFSH Past Medical History Medical History Hyponatremia Mitral regurgitation Systolic dysfunction Diastolic dysfunction (04/2024) PAF (paroxysmal atrial fibrillation) Cardiomyopathy Arthritis Bronchitis Asthma COPD (chronic obstructive pulmonary disease) HTN (hypertension) Glaucoma Surgical History Surgical History History of knee replacement procedure of right knee Family History Family History Father Alcoholism Heart problem Hypertension Sibling Alcoholism Cancer Hypertension Mother Cancer Hypertension Grandparent Diabetes mellitus Heart problem Hypertension Sibling Cancer Hypertension Social History Social History Smoking packs per day: 1 Smoking cigarettes per day: 20.0 Years smoked: 40 Smoking pack-years: 40.00 Smoking status: Current every day smoker Tobacco type: cigarettes Alcohol intake: never Substance use: current Substance use type: marijuana Do You Feel Safe in your Home?: Yes Lack of Transportation: No Lack of Food: Never True Current Housing: I Have Housing Concerned About Future Housing: No Difficulty Paying Gas/Electric Bills: No Difficulty Paying for Meds: No Currently Unemployed: No Education: Associate Degree Difficulty w/ Childcare or Family Care: No Gender identity (if verbalized by the patient): Male Spiritual care concerns: No Exam 2 Narrative: GENERAL: Uncomfortable-appearing, well-nourished, and in mild distress. HEAD: Normocephalic, atraumatic. ENT: Mucous membranes moist. CHEST: Increased respiratory effort with poor air movement and is for a/expiratory wheezing. HEART: Tachycardic and regular.. Normal peripheral pulses. ABDOMEN: Soft, nontender, nondistended. EXTREMITIES: Normal range of motion. No edema. SKIN: Warm, dry, no rash. NEURO: Alert and oriented x3. PSYCH: Normal mood and affect. Course Course Emergency Course: Nebulizer treatments and steroids. Will add IV antibiotics given borderline chest x-ray read. Admit to hospitalist service. Vital Signs Vital signs: Vital Signs Temperature 98.3 F 02/25/25 06:13 Pulse Rate 113 H 02/25/25 06:13 Respiratory Rate 29 H 02/25/25 06:13 Blood Pressure 172/111 H 02/25/25 06:13 Pulse Oximetry 94 02/25/25 06:13 Oxygen Delivery Nasal Cannula 02/25/25 06:13 Oxygen Flow Rate 4 02/25/25 06:13 Temperature 98.3 F 02/25/25 06:13 Pulse Rate 107 H 02/25/25 08:58 Respiratory Rate 34 H 02/25/25 08:58 Blood Pressure 165/102 H 02/25/25 08:58 Pulse Oximetry 95 02/25/25 08:58 Oxygen Delivery Nasal Cannula 02/25/25 08:11 Oxygen Flow Rate 4 02/25/25 08:11 MDM - SOB/Dyspnea Lab Data 02/25/25 06:25 02/25/25 06:25 Labs: Lab Results 02/25/25 02/25/25 Range/Units 06:25 06:27 WBC 4.5 (4.5-10.0) K/mm3 RBC 4.35 L (4.6-6.20) M/mm3 Hgb 11.9 L (14.0-18.0) g/dL Hct 38.4 L (42.0-52.0) % MCV 88.3 (80-100) fl MCH 27.4 (26-34) pg MCHC 31.0 L (32-36) g/dl RDW 17.0 H (11.5-14.5) % Plt Count 205 (150-375) k/mm3 MPV 9.4 (7.4-10.4) fl Immature Gran % (Auto) 0.2 (0-0.5) % Neut % (Auto) 74.6 H (45.5-73.1) % Lymph % (Auto) 12.3 L (18.3-44.2) % [place] % (Auto) 12.1 H (2.6-8.5) % Eos % (Auto) 0.4 (0-4.4) % Baso % (Auto) 0.4 (0.2-1.2) % Lymph # (Auto) 0.55 L (0.9-3.2) K/mm3 [place] # (Auto) 0.5 (0.1-0.6) K/mm3 Eos # (Auto) 0.0 (0-0.3) K/mm3 Baso # (Auto) 0.0 (0.0-0.1) K/mm3 Abs Immat Gran (auto) 0.01 (0.00-0.031) K/mm3 Absolute Neuts (auto) 3.3 (1.3-6.7) K/mm3 Absolute Nucleated RBC 0.000 (0.0-0.012) K/mm3 Band Neutrophils % 0 (0-6) % Nucleated RBC % 0.0 (0.0-0.2) % Platelet Estimate Adequate (Adequate) Hypochromasia 1+ Anisocytosis 1+ Schistocytes None seen Sodium 131 L (137-145) mmol/L Potassium 3.8 (3.4-5.0) mmol/L Chloride 94 L (98-107) mmol/L Carbon Dioxide 30 (22-30) mmol/L Anion Gap 7 (4-12) mmol/L BUN 9 (9-20) mg/dL Creatinine 0.53 L (0.7-1.3) mg/dL Estim Creat Clear Calc 120 ml/min Estimated GFR > 60 (59 - ) Glucose 120 H (65-110) mg/dL Calcium 8.4 (8.4-10.2) mg/dL Total Bilirubin 0.3 (0.2-1.3) mg/dL AST 37 (17-59) U/L ALT 38 (6-50) U/L Alkaline Phosphatase 115 (38-126) U/L NT-Pro-B Natriuret Pep 482 H (19.9-100) pg/mL Total Protein 7.0 (6.3-8.2) g/dL Albumin 4.0 (3.5-5.1) g/dL Influenza A (RT-PCR) Negative (Negative) Influenza B (RT-PCR) Negative (Negative) RSV (RT-PCR) Negative (Negative) SARS-CoV-2 RNA (RT-PCR) Negative (Negative) Imaging Data Radiologist's impression: ITS Impressions Chest X-Ray 02/25/25 06:56 Impression: Probable mild worsening bibasilar airspace disease. Correlate for mild pulmonary edema or possibly pneumonia. Stable left upper lobe scarring. Discharge Plan Discharge Clinical Impression: Asthma exacerbation in COPD, Pneumonia Patient Disposition: Still a Patient Condition: Stable Patient Language: [place] Prescriptions: No Action omeprazole 40 mg capsule,delayed release(DR/EC) 40 mg PO DAILY Qty: 90 3RF clotrimazole 10 mg humberto 10 mg mucous membrane TID Qty: 30 0RF alfuzosin 10 mg tablet extended release 24 hr 10 mg PO DAILY Rx Instructions: administer after the same meal each day eplerenone 25 mg tablet 25 mg PO DAILY ziprasidone HCl 80 mg capsule 80 mg PO BID Rx Instructions: give with food (meal/snack) carvedilol 12.5 mg tablet 12.5 mg PO Q12H Rx Instructions: must administer with a meal/food buspirone 7.5 mg tablet 7.5 mg PO BID aspirin [Adult Aspirin Regimen] 81 mg tablet,delayed release (DR/EC) 81 mg PO DAILY loratadine 10 mg tablet 10 mg PO DAILY atorvastatin 40 mg tablet 40 mg PO DAILY lamotrigine 100 mg tablet 100 mg PO DAILY hydroxyzine pamoate 100 mg capsule 100 mg PO Q12H fluticasone furoate 27.5 mcg/actuation spray,suspension 1 spray intranasal DAILY PRN (Reason: Congestion) Rx Instructions: into each nostril tadalafil 20 mg tablet 20 mg PO DAILY PRN (Reason: Erectile Dysfunction) nicotine 14 mg/24 hr patch 24 hour 1 patch transdermal DAILY Qty: 28 2RF Eliquis 5 mg tablet 5 mg PO BID Qty: 60 5RF latanoprost 0.005 % Drops 1 drp OPHTHALMIC (EYE) DAILY ondansetron 4 mg tablet,disintegrating 4 mg PO Q4H 0 Days Qty: 10 0RF Rx Instructions: 1st dose 1-2 hr before radiation prednisone 20 mg tablet 40 mg PO DAILY 5 Days Qty: 10 0RF prednisone 50 mg tablet 50 mg PO DAILY Qty: 5 0RF doxycycline hyclate 100 mg tablet 100 mg PO BID Qty: 20 0RF ondansetron HCl 8 mg tablet 8 mg PO BID PRN (Reason: Nausea And Vomiting) morphine 30 mg tablet extended release 30 mg PO Q12H acetaminophen 500 mg Tablet 500 mg PO Q6H PRN (Reason: Pain (Scale Score 1-3)) oxycodone 5 mg tablet 10 mg PO Q4H PRN (Reason: Pain (Scale Score 7-10)) cefdinir 300 mg capsule 300 mg PO Q12H 7 Days Qty: 14 0RF doxycycline hyclate 100 mg tablet,delayed release (DR/EC) 100 mg PO BID 7 Days Qty: 14 0RF budesonide-formoterol [Symbicort] 160-4.5 mcg/actuation HFA aerosol inhaler See Rx Instructions .ROUTE .COMPLEX Qty: 10.2 5RF Dose Instruction: INHALE 2 PUFFS BY MOUTH TWICE A DAY Rx Instructions: INHALE 2 PUFFS BY MOUTH TWICE A DAY. RINSE AND SPIT losartan 50 mg tablet See Rx Instructions .ROUTE .COMPLEX Qty: 30 5RF Dose Instruction: TAKE 1 TABLET BY MOUTH EVERY DAY Rx Instructions: TAKE 1 TABLET BY MOUTH EVERY DAY albuterol sulfate 90 mcg/actuation HFA aerosol inhaler See Rx Instructions .ROUTE .COMPLEX Qty: 8.5 3RF Dose Instruction: INHALE 1-2 PUFF(S) BY MOUTH EVERY 4 - 6 HOURS NEEDED FOR SHORTNESS OF BREATH OR WHEEZING Rx Instructions: INHALE 1-2 PUFF(S) BY MOUTH EVERY 4 - 6 HOURS NEEDED FOR SHORTNESS OF BREATH OR WHEEZING ipratropium-albuterol 0.5 mg-3 mg(2.5 mg base)/3 mL solution for nebulization See Rx Instructions .ROUTE .COMPLEX Qty: 360 3RF Dose Instruction: INHALE 3 ML VIA NEBULIZER FOUR TIMES DAILY NEEDED FOR SHORTNESS OF BREATH OR WHEEZING Rx Instructions: INHALE 3 ML VIA NEBULIZER FOUR TIMES DAILY NEEDED FOR SHORTNESS OF BREATH OR WHEEZING Follow-up/Referrals: Matthew Mccabe MD [Primary Care Provider] -
--- NOTE | 2025-02-25 09:44 | P.HP_ITS ---
H&P: HPI History of Present Illness Date/Time: 02/25/25 09:44 Chief Complaint: Shortness breath Narrative: 63-year-old male past medical history of COPD non-small cell lung cancer, hypertension, cardiomyopathy, combined heart failure, EF 40-45%, grade 1 diastolic dysfunction on echocardiogram May 30, 2024, present ED with a chief complaint of productive cough and shortness breath. Patient has been having pr oductive cough in possible days, and patient develops dyspnea gradually. Patient has worsening shortness breath yesterday, therefore patient came to ED for evaluation treatment. Patient denies headache, focal weakness, abdomen pain, nausea vomiting diarrhea dysuria Upon arrival to ED, patient was afebrile, blood pressure stable, but patient had a tachycardia tachypnea and hypoxemia, patient was placed on 4 L oxygen in the ED to keep pulse ox above 95, patient did need O2 home therapy Chest x-ray showed worsening bilateral airspace disease, possible mild pulmonary edema and pneumonia Lab showed anemia hemoglobin 11.9 on baseline, Lab showed hyponatremia 135 on the baseline, BNP 482 above baseline, respiratory pathogen PCR negative Review of Systems Review of Systems: ROS negative except above PMFSH Past Medical History Medical History Hyponatremia Mitral regurgitation Systolic dysfunction Diastolic dysfunction (04/2024) PAF (paroxysmal atrial fibrillation) Cardiomyopathy Arthritis Bronchitis Asthma COPD (chronic obstructive pulmonary disease) HTN (hypertension) Glaucoma Surgical History Surgical History History of knee replacement procedure of right knee Family History Family History Father Alcoholism Heart problem Hypertension Sibling Alcoholism Cancer Hypertension Mother Cancer Hypertension Grandparent Diabetes mellitus Heart problem Hypertension Sibling Cancer Hypertension Social History Social History Smoking packs per day: 1 Smoking cigarettes per day: 20.0 Years smoked: 40 Smoking pack-years: 40.00 Smoking status: Current every day smoker Tobacco type: cigarettes Alcohol intake: never Substance use: current Substance use type: marijuana Do You Feel Safe in your Home?: Yes Lack of Transportation: No Lack of Food: Never True Current Housing: I Have Housing Concerned About Future Housing: No Difficulty Paying Gas/Electric Bills: No Difficulty Paying for Meds: No Currently Unemployed: No Education: Associate Degree Difficulty w/ Childcare or Family Care: No Gender identity (if verbalized by the patient): Male Spiritual care concerns: No Meds Home Medications and Allergies Home Medications ?Medication ?Instructions ?Recorded ?Confirmed ?Type latanoprost 0.005 % eye drops 1 drp ophthalmic (eye) DAILY 05/05/20 01/29/25 History alfuzosin 10 mg tablet,extended 10 mg PO DAILY 12/12/23 01/29/25 History release 24 hr aspirin 81 mg tablet,delayed 81 mg PO DAILY 12/12/23 01/29/25 History release (Adult Aspirin Regimen) atorvastatin 40 mg tablet 40 mg PO DAILY 12/12/23 01/29/25 History buspirone 7.5 mg tablet 7.5 mg PO BID 12/12/23 01/29/25 History carvedilol 12.5 mg tablet 12.5 mg PO Q12H 12/12/23 01/29/25 History eplerenone 25 mg tablet 25 mg PO DAILY 12/12/23 01/29/25 History hydroxyzine pamoate 100 mg capsule 100 mg PO Q12H 12/12/23 01/29/25 History lamotrigine 100 mg tablet 100 mg PO DAILY 12/12/23 01/29/25 History loratadine 10 mg tablet 10 mg PO DAILY 12/12/23 01/29/25 History ziprasidone HCl 80 mg capsule 80 mg PO BID 12/12/23 01/29/25 History omeprazole 40 mg capsule,delayed 40 mg PO DAILY #90 caps 02/20/24 01/29/25 Rx release fluticasone furoate 27.5 1 spray intranasal DAILY PRN 04/30/24 01/29/25 History mcg/actuation nasal Congestion spray,suspension nicotine 14 mg/24 hr daily 1 patch transdermal DAILY #28 ea 04/30/24 01/29/25 Rx transdermal patch tadalafil 20 mg tablet 20 mg PO DAILY PRN Erectile 04/30/24 01/29/25 History Dysfunction clotrimazole 10 mg humberto 10 mg mucous membrane TID #30 tabs 08/23/24 01/29/25 Rx apixaban 5 mg tablet (Eliquis) 5 mg PO BID #60 tabs 09/06/24 01/29/25 Rx budesonide-formoterol HFA 160 See Rx Instructions .Route 09/09/24 01/29/25 Rx mcg-4.5 mcg/actuation aerosol .COMPLEX #10.2 ea inhaler (Symbicort) acetaminophen 500 mg tablet 500 mg PO Q6H PRN Pain (Scale 09/13/24 01/29/25 History Score 1-3) morphine 30 mg tablet,extended 30 mg PO Q12H 09/13/24 01/29/25 History release ondansetron HCl 8 mg tablet 8 mg PO BID PRN Nausea And Vomiting 09/13/2401/29 History oxycodone 5 mg tablet 10 mg PO Q4H PRN Pain (Scale Score 09/13/24 01/29/25 History 7-10) cefdinir 300 mg capsule 300 mg PO Q12H 7 days #14 caps 09/15/24 01/29/25 Rx doxycycline hyclate 100 mg 100 mg PO BID 7 days #14 tabs 09/15/24 01/29/25 Rx tablet,delayed release losartan 50 mg tablet See Rx Instructions .Route 09/27/24 01/29/25 Rx .COMPLEX #30 tabs ondansetron 4 mg disintegrating 4 mg PO Q4H 3 doses #10 tabs 10/23/24 01/29/25 Rx tablet prednisone 20 mg tablet 40 mg (2 x 20 mg) PO DAILY 5 days 12/04/24 01/29/25 Rx #10 tabs prednisone 50 mg tablet 50 mg PO DAILY #5 tabs 12/13/24 01/29/25 Rx doxycycline hyclate 100 mg tablet 100 mg PO BID #20 tabs 01/19/25 01/29/25 Rx albuterol sulfate 90 mcg/actuation See Rx Instructions .Route 02/04/25 Rx aerosol inhaler .COMPLEX #8.5 ea ipratropium 0.5 mg-albuterol 3 mg See Rx Instructions .Route 02/18/25 Rx (2.5 mg base)/3 mL nebulization .COMPLEX #360 mL soln Allergies Allergy/AdvReac Type Severity Reaction Status Date / Time lisinopril Allergy Severe ANGIOEDEMA Verified 09/13/24 10:54 Penicillins Allergy Unknown Swelling Verified 09/13/24 10:54 Vital Signs Vital Signs - 24 hr 02/25/25 06:13 02/25/25 06:20 02/25/25 06:21 Temperature 98.3 F Pulse Rate 113 H Respiratory Rate 29 H Blood Pressure 172/111 H Pulse Oximetry 94 94 96 Oxygen Delivery Nasal Cannula Nasal Cannula Nasal Cannula Oxygen Flow Rate 4 4 4 02/25/25 06:23 02/25/25 06:30 02/25/25 07:00 Temperature Pulse Rate 114 H 112 H 109 H Respiratory Rate 30 H 30 H Blood Pressure 172/111 H 166/118 H Pulse Oximetry 96 97 Oxygen Delivery Oxygen Flow Rate 02/25/25 08:00 02/25/25 08:11 02/25/25 08:11 Temperature Pulse Rate 110 H 113 H Respiratory Rate 35 H 24 H Blood Pressure 179/109 H Pulse Oximetry 99 97 Oxygen Delivery Nasal Cannula Oxygen Flow Rate 4 02/25/25 08:26 02/25/25 08:58 Temperature Pulse Rate 110 H 107 H Respiratory Rate 22 H 34 H Blood Pressure 165/102 H Pulse Oximetry 95 Oxygen Delivery Oxygen Flow Rate Exam Narrative: GENERAL: Ill-appearing, respiratory distress,. Well-nourished. - EYES: EOMI. Anicteric. - HENT: Moist mucous membranes. - LUNGS: Coarse breath sound bilaterall y, tachypnea, - CARDIOVASCULAR: Regular rate and rhyth m. No murmur. No JVD. - ABDOMEN: Soft, non-tender and non-dist ended. No palpable masses. - EXTREMITIES: No edema. Peripheral puls es 2+. Non-tender. - NEUROLOGIC: No focal neurological defi cits. CN II-XII grossly intact. - PSYCHIATRIC: Awake, Alert and oriented x 3. Appropriate mood and affect. - SKIN: No rashes or lesions. Warm. - LYMPH: No cervical lymphadenopathy. H&P: Results Labs Labs: Short CBC 02/25/25 Range/Units 06:25 WBC 4.5 (4.5-10.0) K/mm3 Hgb 11.9 L (14.0-18.0) g/dL Hct 38.4 L (42.0-52.0) % Plt Count 205 (150-375) k/mm3 BMP 02/25/25 06:25 Sodium 131 L Potassium 3.8 Chloride 94 L Carbon Dioxide 30 BUN 9 Creatinine 0.53 L Glucose 120 H Calcium 8.4 Liver Function 02/25/25 Range/Units 06:25 Total Bilirubin 0.3 (0.2-1.3) mg/dL AST 37 (17-59) U/L ALT 38 (6-50) U/L Alkaline Phosphatase 115 (38-126) U/L Albumin 4.0 (3.5-5.1) g/dL Assessment and Plan Assessment and plan (1) Postobstructive pneumonia: Code(s): J18.9 - Pneumonia, unspecified organism Status: Acute (2) Lung cancer: Onset Date: 03/2024 Code(s): C34.90 - Malignant neoplasm of unspecified part of unspecified bronchus or lung Status: Acute (3) PAF (paroxysmal atrial fibrillation): Code(s): I48.0 - Paroxysmal atrial fibrillation Status: Acute (4) Acute on chronic combined systolic and diastolic heart failure: Code(s): I50.43 - Acute on chronic combined systolic (congestive) and diastolic (congestive) heart failure Status: Acute (5) Hyponatremia: Code(s): E87.1 - Hypo-osmolality and hyponatremia Status: Acute (6) Non-small cell carcinoma of lung: Onset Date: 03/2024 Qualifiers: Laterality: left Qualified Code(s): C34.92 - Malignant neoplasm of unspecified part of left bronchus or lung Code(s): C34.90 - Malignant neoplasm of unspecified part of unspecified bronchus or lung Status: Acute (7) Asthma exacerbation in COPD: Code(s): J44.1 - Chronic obstructive pulmonary disease with (acute) exacerbation Status: Acute (8) Acute respiratory failure with hypoxemia: Code(s): J96.01 - Acute respiratory failure with hypoxia Status: Acute (9) Personal history of nicotine dependence: Code(s): Z87.891 - Personal history of nicotine dependence Status: Acute (10) HTN (hypertension): Code(s): I10 - Essential (primary) hypertension Status: Acute Plan COPD exacerbation, multifocal pneumonia, acute respiratory failure Patient has history of COPD, patient has been having productive cough in past few days and develops dyspnea gradually Upon arrival to ED, patient was found have hypoxemia patient need 48 oxygen ED X-ray shows bilateral possible pneumonia Continue medications Symbicort 2 puffs b.i.d. Start DuoNeb scheduled q.6 hours, albuterol nebulizer q.4 hours p.r.n. Hold prednisone p.o., start methylprednisolone 60 mg q.6 hours IV Patient is immunocompromise Will start vancomycin cefepime IV Follow-up MRSA screening Acute on chronic combined heart failure, cardiomyopathy Patient has elevated BNP, x-ray shows pulmonary edema Echocardiogram May 30, 2024 showed combined heart failure EF 40-45% Start Lasix 40 mg once and daily IV Non-small cell lung cancer Patient follow-up with heme oncologist at [facility], Chronic patient on chemotherapy Pancytopenia Likely from chemotherapy Continue monitoring. Hypertension Continue home medications: Losartan 50 mg daily p.o., carvedilol 12.5 mg b.i.d. p.o., Paroxysmal AFib Continue Eliquis 5 mg b.i.d. p.o., carvedilol 12.5 mg b.i.d. p.o. GERD Continue omeprazole 40 mg daily p.o. DVT prophylaxis patient in next 4 Surrogate decisionmaker is ivis Flannery [facility] Advance Care Plan I have confirmed that the patient's Advanced Care Plan is present, code status is documented, or surrogate decision maker is listed in patient medical record.: Yes Medication Reconciliation I have utilized all available resources to obtain, update and review the patients current medications (includes all prescriptions, OTC, herbals, cannabis, and nutritional supplements).: Yes
--- NOTE | 2025-02-25 11:00 | ADMGEN ---
This patient, Josafat Calvo, was admitted to Medical Room 257-01. Patient/family oriented to hospital policies and general routines including ID bracelet, bed and alarms, visiting hours, pain management, procedures, bathroom and other care routines, personal items, smoking policy, room service/diet, and visiting hours. Information on how to activate the Rapid Response Team has been discussed. Patient/Family are encouraged to report perceived risks to care and to ask questions if they do not understand what they are told or what they should do.
[2025-02-25] MEDS: FUROSEMIDE INJ 40 MG/4 ML VIAL IV PUSH (11:45)
[2025-02-25] MEDS: CEFEPIME 2 GM/NS 50 ML 2 GM/50 ML BAG IVPB ×2 (11:49→21:11)
[2025-02-25 11:59] LABS: Alveolar/Arterial O2 Gradient 128.2 mmHg; Base Excess ABG 4.3 mEq/l (+/-2.0); Fractional Inspired Oxygen 48 %; HCO3 ABG 30.8 mEq/l (22.0-26.0); Oxygen Content ABG 18.4 %vol (16.0-22.0); Oxygen Saturation ABG 98.9 % (95.0-100.0); PCO2 ABG 54.4 mmHg (35.0-45.0); PO2 ABG 152.6 mmHg (80.0-100.0); PO2 FiO2 Ratio Arterial Blood 3.18 %; Total Hemoglobin 13.3 g/dL (12.0-18.0); pH ABG 7.371 (7.350-7.450)
[2025-02-25 12:00] LABS: Device NASAL CANNULA; Modified Allen's Test Pass; Site Drawn RIGHT RADIAL
[2025-02-25] MEDS: AZITHROMYCIN 500 MG/NS 250 ML 500 MG/250 ML BAG 250 MG IVPB (12:34)
[2025-02-25] MEDS: methylPREDNISolone SOD SUCC 125 MG VIAL 60 MG IV PUSH ×3 (12:36→23:18)
[2025-02-25 12:53] LABS: MRSA (PCR) NOT DETECTED (NOT DETECTE)
[2025-02-25] MEDS: polyethylene glycoL 3350 17 GM POWD.PACK PO (17:06)
[2025-02-25] MEDS: IPRATROPIUM 0.5 MG/ALBUTEROL SULFATE 2.5 MG AMPUL.NEB 3 ML INHALATION (20:09)
[2025-02-25] MEDS: DOXYCYCLINE 100 MG/NS 100 ML 100 MG/100 ML BAG IVPB (20:10)
[2025-02-25] MEDS: carvediloL 12.5 MG TABLET PO (21:28)
[2025-02-25] MEDS: APIXABAN 5 MG TABLET PO (21:34)
[2025-02-25] MEDS: LATANOPROST 0.005% OP SOLN 2.5 ML BTL 1 DROP EACH EYE (22:22)
[2025-02-25] MEDS: ZIPRASIDONE HCL 80 MG CAPSULE PO (22:23)
[2025-02-25] MEDS: busPIRone HCL 2.5 MG, busPIRone HCL 5 MG 7.5 MG PO (22:24)
[2025-02-26] VITALS (19 sets, daily range): BP systolic 114–183; BP diastolic 71–110; PULSE 85–109; RESP 20–24; TEMP 36.4–36.8; O2SAT 95–97; BMI 27.6
[2025-02-26] MEDS: IPRATROPIUM 0.5 MG/ALBUTEROL SULFATE 2.5 MG AMPUL.NEB 3 ML INHALATION ×3 (01:55→13:45)
[2025-02-26] MEDS: CEFEPIME 2 GM/NS 50 ML 2 GM/50 ML BAG IVPB ×3 (05:14→21:31)
[2025-02-26] MEDS: methylPREDNISolone SOD SUCC 125 MG VIAL 60 MG IV PUSH ×3 (05:15→17:20)
[2025-02-26] MEDS: ACETAMINOPHEN 325 MG TABLET 650 MG PO (05:15)
--- NOTE | 2025-02-26 08:18 | P.PNIM_ITS ---
Progress Note: A&P Assessment and Plan (1) Postobstructive pneumonia: Code(s): J18.9 - Pneumonia, unspecified organism Status: Acute (2) Lung cancer: Onset Date: 03/2024 Code(s): C34.90 - Malignant neoplasm of unspecified part of unspecified bronchus or lung Status: Acute (3) PAF (paroxysmal atrial fibrillation): Code(s): I48.0 - Paroxysmal atrial fibrillation Status: Acute (4) Acute on chronic combined systolic and diastolic heart failure: Code(s): I50.43 - Acute on chronic combined systolic (congestive) and diastolic (congestive) heart failure Status: Acute (5) Hyponatremia: Code(s): E87.1 - Hypo-osmolality and hyponatremia Status: Acute (6) Non-small cell carcinoma of lung: Onset Date: 03/2024 Qualifiers: Laterality: left Qualified Code(s): C34.92 - Malignant neoplasm of unspecified part of left bronchus or lung Code(s): C34.90 - Malignant neoplasm of unspecified part of unspecified bronchus or lung Status: Acute (7) Asthma exacerbation in COPD: Code(s): J44.1 - Chronic obstructive pulmonary disease with (acute) exacerbation Status: Acute (8) Acute respiratory failure with hypoxemia: Code(s): J96.01 - Acute respiratory failure with hypoxia Status: Acute (9) Personal history of nicotine dependence: Code(s): Z87.891 - Personal history of nicotine dependence Status: Acute (10) HTN (hypertension): Code(s): I10 - Essential (primary) hypertension Status: Acute Plan COPD exacerbation, multifocal pneumonia, acute respiratory failure Patient has history of COPD, patient has been having productive cough in past few days and develops dyspnea gradually Upon arrival to ED, patient was found have hypoxemia patient need 48 oxygen ED X-ray shows bilateral possible pneumonia Continue medications Symbicort 2 puffs b.i.d. Start DuoNeb scheduled q.6 hours, albuterol nebulizer q.4 hours p.r.n. Hold prednisone p.o., start methylprednisolone 60 mg q.6 hours IV Patient is immunocompromise on vancomycin cefepime IV Follow-up MRSA screening negative, changed to doxy and cefepime on 02/25 c/w the abx today Acute on chronic combined heart failure, cardiomyopathy Patient has elevated BNP, x-ray shows pulmonary edema Echocardiogram May 30, 2024 showed combined heart failure EF 40-45% Started Lasix 40 mg once and daily IV 02/25 Negative input output balance 1.1 L Still for overloaded, continue IV Lasix Non-small cell lung cancer Patient follow-up with heme oncologist at [facility], Chronic patient on chemotherapy chornic anemia Likely from chemotherapy Continue monitoring. Uncontrolled Hypertension Continue home medications: Losartan 50 mg daily p.o., carvedilol 12.5 mg b.i.d. p.o., add amlodipine 10 mg daily po Paroxysmal AFib Continue Eliquis 5 mg b.i.d. p.o., carvedilol 12.5 mg b.i.d. p.o. GERD Continue omeprazole 40 mg daily p.o. DVT prophylaxis patient in next 4 Surrogate decisionmaker is ivis Rojas Subjective Date/time seen: 02/26/25 08:18 Interval history: I saw examined patient today. Patient feels dyspnea improved significantly, still has some cough with scant phlegm. Patient feels tired, denies chest pain abdomen pain nausea vomiting diarrhea Exam Narrative: GENERAL: Ill-appearing, respiratory distress,. Well-nourished. - EYES: EOMI. Anicteric. - HENT: Moist mucous membranes. - LUNGS: Coarse breath sound bilaterall y, tachypnea, - CARDIOVASCULAR: Regular rate and rhyth m. No murmur. No JVD. - ABDOMEN: Soft, non-tender and non-dist ended. No palpable masses. - EXTREMITIES: No edema. Peripheral puls es 2+. Non-tender. - NEUROLOGIC: No focal neurological defi cits. CN II-XII grossly intact. - PSYCHIATRIC: Awake, Alert and oriented x 3. Appropriate mood and affect. - SKIN: No rashes or lesions. Warm. - LYMPH: No cervical lymphadenopathy. Objective Data Vital Signs Vital Signs: Vital Signs - 24 hr 02/25/25 08:26 02/25/25 08:58 02/25/25 10:18 Temperature Pulse Rate 110 H 107 H 100 Respiratory Rate 22 H 34 H Blood Pressure 165/102 H Pulse Oximetry 95 Oxygen Delivery Oxygen Flow Rate Fraction of Inspired Oxygen 02/25/25 11:00 02/25/25 11:10 02/25/25 14:00 Temperature 98.0 F Pulse Rate 107 H 105 H Respiratory Rate 38 H 18 Blood Pressure 108/105 H 157/104 H Pulse Oximetry 96 100 94 Oxygen Delivery Nasal Cannula Oxygen Flow Rate 4 Fraction of Inspired Oxygen 02/25/25 16:00 02/25/25 16:45 02/25/25 16:52 Temperature Pulse Rate 108 H 109 H 108 H Respiratory Rate 24 H 24 H Blood Pressure Pulse Oximetry Oxygen Delivery Oxygen Flow Rate Fraction of Inspired Oxygen 02/25/25 20:00 02/25/25 20:00 02/25/25 20:11 Temperature Pulse Rate 105 H 105 H 107 H Respiratory Rate 22 H 20 Blood Pressure Pulse Oximetry 97 Oxygen Delivery Nasal Cannula Oxygen Flow Rate 3 Fraction of Inspired Oxygen 32 02/25/25 20:13 02/25/25 20:21 02/25/25 20:56 Temperature 98.2 F Pulse Rate 107 H 107 H 109 H Respiratory Rate 20 20 22 H Blood Pressure 173/104 H Pulse Oximetry 94 97 Oxygen Delivery Nasal Cannula Oxygen Flow Rate 3 Fraction of Inspired Oxygen 32 02/25/25 21:28 02/26/25 00:00 02/26/25 00:22 Temperature 98.0 F Pulse Rate 105 H 102 H 88 Respiratory Rate 24 H Blood Pressure 143/110 H Pulse Oximetry 97 Oxygen Delivery Oxygen Flow Rate Fraction of Inspired Oxygen 02/26/25 01:56 02/26/25 02:04 02/26/25 04:00 Temperature Pulse Rate 98 101 H 85 Respiratory Rate 20 Blood Pressure Pulse Oximetry Oxygen Delivery Oxygen Flow Rate Fraction of Inspired Oxygen 02/26/25 06:00 Temperature 98.3 F Pulse Rate 88 Respiratory Rate 24 H Blood Pressure 183/104 H Pulse Oximetry 97 Oxygen Delivery Oxygen Flow Rate Fraction of Inspired Oxygen Intake/Output Intake/Output: Intake & Output 02/23/25 02/24/25 02/25/25 02/26/25 23:59 23:59 23:59 23:59 Intake Total 930 200 Output Total 2250 500 Balance -1320 -300 Meds/Results Medications: Active Medications Generic Name Dose Route Start Last Admin Trade Name Freq PRN Reason Stop Dose Admin Acetaminophen 650 mg 02/25/25 09:41 02/26/25 05:15 Acetaminophen 325 Mg Tablet PO 650 mg Q4H PRN Administration Mild Pain (1-3) or Fever Hydrocodone Bitart/Acetaminophen 1 tab 02/25/25 09:41 Hydrocodone/Acetaminophen (*Crx) 5-325 Mg Tablet PO Q4H PRN Pain Rated 4-6 Albuterol 2.5 mg 02/25/25 10:00 Albuterol Sulfate Neb 2.5 Mg/3 Ml Inh INHALATION Q4HRT PRN Shortness Of Breath Or Wheezing Albuterol/Ipratropium 3 ml 02/25/25 14:00 02/26/25 01:55 Ipratropium 0.5 Mg/Albuterol Sulfate 2.5 Mg Ampul.Neb 3 Ml INHALATION 3 ml Q6HRT DARIEL Administration Alfuzosin HCl 10 mg 02/26/25 09:00 Alfuzosin 10 Mg Er Tablet PO DAILY DARIEL Apixaban 5 mg 02/25/25 21:30 02/25/25 21:34 Apixaban 5 Mg Tablet PO 5 mg Q12HR DARIEL Administration Aspirin 81 mg 02/26/25 09:00 Aspirin 81 Mg Enteric Tablet PO DAILY DARIEL Atorvastatin Calcium 40 mg 02/26/25 09:00 Atorvastatin 40 Mg Tablet PO DAILY DARIEL Buspirone HCl 2.5 mg/ 7.5 mg 02/25/25 21:35 02/25/25 22:24 Buspirone HCl 5 mg PO 7.5 mg Q12HR DARIEL Administration Carvedilol 12.5 mg 02/25/25 21:00 02/25/25 21:28 Carvedilol 12.5 Mg Tablet PO 12.5 mg Q12HR DARIEL Administration Furosemide 40 mg 02/25/25 10:05 02/25/25 11:45 Furosemide Inj 40 Mg/4 Ml Vial IV PUSH 40 mg DAILY DARIEL Administration Cefepime HCl 2 gm in 50 mls @ 100 mls/hr 02/25/25 11:30 02/26/25 06:07 Maxipime 2 Gm/Ns 50 Ml IVPB Infused Q8HR DARIEL Infusion Doxycycline Hyclate 100 mg in 100 mls @ 100 mls/hr 02/25/25 21:00 02/25/25 21:09 Vibramycin 100 Mg/Ns 100 Ml IVPB 03/01/25 21:59 Infused Q12H DARIEL Infusion Lamotrigine 100 mg 02/26/25 09:00 Lamotrigine 100 Mg Tablet PO DAILY DARIEL Latanoprost 1 drop 02/25/25 21:35 02/25/25 22:22 Latanoprost 0.005% Op Soln 2.5 Ml Btl EACH EYE 1 drop HS DARIEL Administration Losartan Potassium 50 mg 02/26/25 09:00 Losartan Potassium 50 Mg Tablet PO DAILY [facility] Methylprednisolone Sodium Succinate 60 mg 02/25/25 12:00 02/26/25 05:15 Methylprednisolone Sod Succ 125 Mg Vial IV PUSH 60 mg Q6HR DARIEL Administration Ondansetron HCl 4 mg 02/25/25 09:41 Ondansetron Inj 4 Mg/2 Ml Vial IV PUSH Q4H PRN Nausea Polyethylene Glycol 17 gm 02/25/25 14:35 02/25/25 17:06 Polyethylene Glycol 3350 17 Gm Powd.Pack PO 17 gm QAM DARIEL Administration Prednisone 40 mg 02/26/25 09:00 Prednisone 20 Mg Tablet PO DAILY [facility] Ziprasidone 80 mg 02/25/25 21:35 02/25/25 22:23 Ziprasidone Hcl 80 Mg Capsule PO 80 mg Q12HR DARIEL Administration Radiology Results: ITS Impressions Chest X-Ray 02/25/25 06:56 Impression: Probable mild worsening bibasilar airspace disease. Correlate for mild pulmonary edema or possibly pneumonia. Stable left upper lobe scarring. Labs Labs: Laboratory Results - last 24 hr 02/25/25 02/25/25 02/25/25 06:25 10:20 11:47 Puncture Site Right radial ABG pH 7.371 ABG pCO2 54.4 H ABG pO2 152.6 H ABG PO2/FiO2 Ratio 3.18 ABG HCO3 30.8 H ABG O2 Saturation 98.9 ABG O2 Content 18.4 ABG Base Excess 4.3 A-a Gradient 128.2 Oxyhemoglobin 97.0 Total Hemoglobin 13.3 O2 Delivery Device Nasal cannula O2 Liters/Min 7.0 FiO2 48 NT-Pro-B Natriuret Pep 482 H Nasal MRSA (PCR) Not detected
[2025-02-26] MEDS: busPIRone HCL 2.5 MG, busPIRone HCL 5 MG 7.5 MG PO ×2 (08:33→20:09)
[2025-02-26] MEDS: ASPIRIN 81 MG ENTERIC TABLET PO (08:33)
[2025-02-26] MEDS: lamoTRIgine 100 MG TABLET PO (08:34)
[2025-02-26] MEDS: ATORVASTATIN 40 MG TABLET PO (08:34)
[2025-02-26] MEDS: APIXABAN 5 MG TABLET PO ×2 (08:34→20:09)
[2025-02-26] MEDS: carvediloL 12.5 MG TABLET PO ×2 (08:34→20:09)
[2025-02-26] MEDS: LOSARTAN POTASSIUM 50 MG TABLET PO (08:34)
[2025-02-26] MEDS: polyethylene glycoL 3350 17 GM POWD.PACK PO (08:35)
[2025-02-26] MEDS: amLODIPine BESYLATE 10 MG TABLET PO (08:37)
[2025-02-26] MEDS: hydrOXYzine pamoate 25 MG CAPSULE PO ×2 (08:42→20:09)
[2025-02-26] MEDS: PANTOPRAZOLE 40 MG TABLET PO ×2 (08:42→20:09)
[2025-02-26] MEDS: ZIPRASIDONE HCL 80 MG CAPSULE PO ×2 (08:45→20:09)
[2025-02-26] MEDS: FUROSEMIDE INJ 40 MG/4 ML VIAL IV PUSH (08:51)
[2025-02-26] MEDS: DOXYCYCLINE 100 MG/NS 100 ML 100 MG/100 ML BAG IVPB ×2 (08:59→20:12)
[2025-02-26] MEDS: MORPHINE SULFATE (*CRX) 30 MG TABCR PO (08:59)
[2025-02-26] MEDS: CLOTRIMAZOLE 10 MG TROC MUCOUS MEM ×3 (08:59→17:20)
[2025-02-26] MEDS: hydrALAZINE HCL 20 MG/ML VIAL IV PUSH (09:01)
[2025-02-26] MEDS: oxyCODONE HCL (*CRX) 5 MG TAB IR 10 MG PO (17:20)
[2025-02-26] MEDS: LATANOPROST 0.005% OP SOLN 2.5 ML BTL 1 DROP EACH EYE (20:14)
[2025-02-27] VITALS (22 sets, daily range): BP systolic 115–131; BP diastolic 77–94; PULSE 78–104; RESP 17–21; TEMP 36.4–36.7; O2SAT 92–98
[2025-02-27] MEDS: methylPREDNISolone SOD SUCC 125 MG VIAL 60 MG IV PUSH ×2 (00:01→05:47)
[2025-02-27] MEDS: CEFEPIME 2 GM/NS 50 ML 2 GM/50 ML BAG IVPB ×3 (05:47→20:18)
[2025-02-27] MEDS: ALBUTEROL SULFATE NEB 2.5 MG/3 ML INH INHALATION (06:02)
--- NOTE | 2025-02-27 06:05 | PCRCNOTE ---
Treatments on general care floors not administered due to calls to ED
--- NOTE | 2025-02-27 07:16 | P.PNIM_ITS ---
Progress Note: A&P Assessment and Plan (1) Postobstructive pneumonia: Code(s): J18.9 - Pneumonia, unspecified organism Status: Acute (2) Lung cancer: Onset Date: 03/2024 Code(s): C34.90 - Malignant neoplasm of unspecified part of unspecified bronchus or lung Status: Acute (3) PAF (paroxysmal atrial fibrillation): Code(s): I48.0 - Paroxysmal atrial fibrillation Status: Acute (4) Acute on chronic combined systolic and diastolic heart failure: Code(s): I50.43 - Acute on chronic combined systolic (congestive) and diastolic (congestive) heart failure Status: Acute (5) Hyponatremia: Code(s): E87.1 - Hypo-osmolality and hyponatremia Status: Acute (6) Non-small cell carcinoma of lung: Onset Date: 03/2024 Qualifiers: Laterality: left Qualified Code(s): C34.92 - Malignant neoplasm of unspecified part of left bronchus or lung Code(s): C34.90 - Malignant neoplasm of unspecified part of unspecified bronchus or lung Status: Acute (7) Asthma exacerbation in COPD: Code(s): J44.1 - Chronic obstructive pulmonary disease with (acute) exacerbation Status: Acute (8) Acute respiratory failure with hypoxemia: Code(s): J96.01 - Acute respiratory failure with hypoxia Status: Acute (9) Personal history of nicotine dependence: Code(s): Z87.891 - Personal history of nicotine dependence Status: Acute (10) HTN (hypertension): Code(s): I10 - Essential (primary) hypertension Status: Acute Plan COPD exacerbation, multifocal pneumonia, acute respiratory failure Patient has history of COPD, patient has been having productive cough in past few days and develops dyspnea gradually Upon arrival to ED, patient was found have hypoxemia patient need 4L oxygen ED X-ray shows bilateral possible pneumonia Continue medications Symbicort 2 puffs b.i.d. Start DuoNeb scheduled q.6 hours, albuterol nebulizer q.4 hours p.r.n. Hold prednisone p.o., start methylprednisolone 60 mg q.6 hours IV Patient is immunocompromise on vancomycin cefepime IV Follow-up MRSA screening negative, changed to doxy and cefepime on 02/25 c/w the abx today Acute on chronic combined heart failure, cardiomyopathy Patient has elevated BNP, x-ray shows pulmonary edema Echocardiogram May 30, 2024 showed combined heart failure EF 40-45% Started Lasix 40 mg once and daily IV 02/25 Negative input output balance 1.1 L Still for overloaded, continue IV Lasix Non-small cell lung cancer Patient follow-up with heme oncologist at [facility], Chronic patient on chemotherapy Chronic anemia Likely from chemotherapy Continue monitoring. Uncontrolled Hypertension Continue home medications: Losartan 50 mg daily p.o., carvedilol 12.5 mg b.i.d. p.o., add amlodipine 10 mg daily po Paroxysmal AFib Continue Eliquis 5 mg b.i.d. p.o., carvedilol 12.5 mg b.i.d. p.o. GERD Continue omeprazole 40 mg daily p.o. DVT prophylaxis patient in next 4 Surrogate decisionmaker is ivis Rojas Subjective Date/time seen: 02/27/25 07:16 Interval history: Interval history:63-year-old male past medical history of COPD non-small cell lung cancer, hypertension, cardiomyopathy, combined heart failure, EF 40-45%, grade 1 diastolic dysfunction on echocardiogram May 30, 2024, present ED with a chief complaint of productive cough and shortness breath. 02/27: Currently the blood pressure is controlled. Continue cefepime and doxycycline. As per patient he is almost back to normal. At home he does not use nasal oxygen but currently on 2 L. He follows up with oncologist at [facility] and he was last seen on 02/20 and as per patient no chemotherapy was given. Discussed with Dr. Rosenthal who agrees with antibiotics and advised P.T./OT. Review of Systems Review of Systems: ROS negative except above Exam Narrative: GENERAL: Ill-appearing, respiratory distress,. Well-nourished. - EYES: EOMI. Anicteric. - HENT: Moist mucous membranes. - LUNGS: Coarse breath sound bilaterall y, tachypnea, - CARDIOVASCULAR: Regular rate and rhyth m. No murmur. No JVD. - ABDOMEN: Soft, non-tender and non-dist ended. No palpable masses. - EXTREMITIES: No edema. Peripheral puls es 2+. Non-tender. - NEUROLOGIC: No focal neurological defi cits. CN II-XII grossly intact. - PSYCHIATRIC: Awake, Alert and oriented x 3. Appropriate mood and affect. - SKIN: No rashes or lesions. Warm. - LYMPH: No cervical lymphadenopathy. Objective Data Vital Signs Vital Signs: Vital Signs - 24 hr 02/26/25 08:00 02/26/25 08:00 02/26/25 08:34 Temperature Pulse Rate 109 H 104 H Respiratory Rate Blood Pressure Pulse Oximetry 97 Oxygen Delivery Nasal Cannula Oxygen Flow Rate 3 02/26/25 09:05 02/26/25 09:05 02/26/25 09:11 Temperature Pulse Rate 103 H 108 H Respiratory Rate 20 20 Blood Pressure Pulse Oximetry 97 Oxygen Delivery Nasal Cannula Oxygen Flow Rate 3 02/26/25 11:07 02/26/25 12:00 02/26/25 13:46 Temperature Pulse Rate 94 95 89 Respiratory Rate 20 20 Blood Pressure 125/81 Pulse Oximetry 95 Oxygen Delivery Oxygen Flow Rate 02/26/25 13:57 02/26/25 14:00 02/26/25 16:00 Temperature 97.9 F Pulse Rate 89 91 92 Respiratory Rate 20 20 Blood Pressure 114/71 Pulse Oximetry 96 Oxygen Delivery Oxygen Flow Rate 02/26/25 20:00 02/26/25 20:00 02/26/25 20:00 Temperature 97.6 F Pulse Rate 89 85 Respiratory Rate 20 Blood Pressure 126/79 Pulse Oximetry 96 96 Oxygen Delivery Nasal Cannula Oxygen Flow Rate 3 02/26/25 20:09 02/26/25 23:00 02/27/25 00:00 Temperature Pulse Rate 90 82 Respiratory Rate Blood Pressure Pulse Oximetry 97 Oxygen Delivery Nasal Cannula Oxygen Flow Rate 3 02/27/25 04:00 02/27/25 05:02 02/27/25 06:03 Temperature 97.7 F Pulse Rate 82 78 88 Respiratory Rate 17 20 Blood Pressure 125/83 Pulse Oximetry 98 Oxygen Delivery Oxygen Flow Rate 02/27/25 06:09 Temperature Pulse Rate 83 Respiratory Rate 20 Blood Pressure Pulse Oximetry Oxygen Delivery Oxygen Flow Rate Intake/Output Intake/Output: Intake & Output 02/24/25 02/25/25 02/26/25 02/27/25 23:59 23:59 23:59 23:59 Intake Total 930 3230 400 Output Total 2250 2550 900 Balance -1320 680 -500 Meds/Results Medications: Active Medications Generic Name Dose Route Start Last Admin Trade Name Freq PRN Reason Stop Dose Admin Acetaminophen 500 mg 02/26/25 08:18 Acetaminophen 500 Mg Tablet PO Q6H PRN Pain (Scale Score 1-3) Acetaminophen 650 mg 02/26/25 08:25 Acetaminophen 325 Mg Tablet PO Q4H PRN Fever Hydrocodone Bitart/Acetaminophen 1 tab 02/25/25 09:41 Hydrocodone/Acetaminophen (*Crx) 5-325 Mg Tablet PO Q4H PRN Pain Rated 4-6 Albuterol 2.5 mg 02/25/25 10:00 02/27/25 06:02 Albuterol Sulfate Neb 2.5 Mg/3 Ml Inh INHALATION 2.5 mg Q4HRT PRN Administration Shortness Of Breath Or Wheezing Albuterol/Ipratropium 3 ml 02/25/25 14:00 02/27/25 06:03 Ipratropium 0.5 Mg/Albuterol Sulfate 2.5 Mg Ampul.Neb 3 Ml INHALATION Not Given Q6HRT DARIEL Alfuzosin HCl 10 mg 02/26/25 09:00 02/26/25 08:39 Alfuzosin 10 Mg Er Tablet PO 10 mg DAILY DARIEL Administration Amlodipine Besylate 10 mg 02/26/25 09:00 02/26/25 08:37 Amlodipine Besylate 10 Mg Tablet PO 10 mg DAILY DARIEL Administration Apixaban 5 mg 02/25/25 21:30 02/26/25 20:09 Apixaban 5 Mg Tablet PO 5 mg Q12HR DARIEL Administration Aspirin 81 mg 02/26/25 09:00 02/26/25 08:33 Aspirin 81 Mg Enteric Tablet PO 81 mg DAILY DARIEL Administration Atorvastatin Calcium 40 mg 02/26/25 09:00 02/26/25 08:34 Atorvastatin 40 Mg Tablet PO 40 mg DAILY DARIEL Administration Buspirone HCl 2.5 mg/ 7.5 mg 02/25/25 21:35 02/26/25 20:09 Buspirone HCl 5 mg PO 7.5 mg Q12HR DARIEL Administration Carvedilol 12.5 mg 02/25/25 21:00 02/26/25 20:09 Carvedilol 12.5 Mg Tablet PO 12.5 mg Q12HR DARIEL Administration Clotrimazole 10 mg 02/26/25 09:00 02/26/25 17:20 Clotrimazole 10 Mg Troc MUCOUS MEM 10 mg TID DARIEL Administration Furosemide 40 mg 02/25/25 10:05 02/26/25 08:51 Furosemide Inj 40 Mg/4 Ml Vial IV PUSH 40 mg DAILY DARIEL Administration Hydroxyzine Pamoate 25 mg 02/26/25 09:00 02/26/25 20:09 Hydroxyzine Pamoate 25 Mg Capsule PO 25 mg Q12HR DARIEL Administration Cefepime HCl 2 gm in 50 mls @ 100 mls/hr 02/25/25 11:30 02/27/25 06:34 Maxipime 2 Gm/Ns 50 Ml IVPB Infused Q8HR DARIEL Infusion Doxycycline Hyclate 100 mg in 100 mls @ 100 mls/hr 02/25/25 21:00 02/26/25 21:31 Vibramycin 100 Mg/Ns 100 Ml IVPB 03/01/25 21:59 Infused Q12H DARIEL Infusion Lamotrigine 100 mg 02/26/25 09:00 02/26/25 08:34 Lamotrigine 100 Mg Tablet PO 100 mg DAILY DARIEL Administration Latanoprost 1 drop 02/25/25 21:35 02/26/25 20:14 Latanoprost 0.005% Op Soln 2.5 Ml Btl EACH EYE 1 drop HS DARIEL Administration Losartan Potassium 50 mg 02/26/25 09:00 02/26/25 08:34 Losartan Potassium 50 Mg Tablet PO 50 mg DAILY DARIEL Administration Methylprednisolone Sodium Succinate 60 mg 02/25/25 12:00 02/27/25 05:47 Methylprednisolone Sod Succ 125 Mg Vial IV PUSH 60 mg Q6HR DARIEL Administration Morphine Sulfate 30 mg 02/26/25 09:00 02/26/25 08:59 Morphine Sulfate (*Crx) 30 Mg Tabcr PO 30 mg DAILY DARIEL Administration Ondansetron HCl 4 mg 02/25/25 09:41 Ondansetron Inj 4 Mg/2 Ml Vial IV PUSH Q4H PRN Nausea Oxycodone HCl 10 mg 02/26/25 08:18 02/26/25 17:20 Oxycodone Hcl (*Crx) 5 Mg Tab Ir PO 10 mg Q4H PRN Administration Pain (Scale Score 7-10) Pantoprazole Sodium 40 mg 02/26/25 09:00 02/26/25 20:09 Pantoprazole 40 Mg Tablet PO 40 mg Q12HR DARIEL Administration Polyethylene Glycol 17 gm 02/25/25 14:35 02/26/25 08:35 Polyethylene Glycol 3350 17 Gm Powd.Pack PO 17 gm QAM DARIEL Administration Fluticasone/Salmeterol 2 puff 02/26/25 20:00 02/27/25 06:02 Fluticasone/Salmeterol 115-21 Mcg Inhaler 1 Puff INHALATION Not Given Q12HRT DARIEL Ziprasidone 80 mg 02/25/25 21:35 02/26/25 20:09 Ziprasidone Hcl 80 Mg Capsule PO 80 mg Q12HR DARIEL Administration Radiology Results: ITS Impressions Chest X-Ray 02/25/25 06:56 Impression: Probable mild worsening bibasilar airspace disease. Correlate for mild pulmonary edema or possibly pneumonia. Stable left upper lobe scarring. Hospitalist MIPS Advance Care Plan I have confirmed that the patient's Advanced Care Plan is present, code status is documented, or surrogate decision maker is listed in patient medical record.: Yes Medication Reconciliation I have utilized all available resources to obtain, update and review the patients current medications (includes all prescriptions, OTC, herbals, cannabis, and nutritional supplements).: Yes
[2025-02-27 07:51] LABS: Hematocrit 35.9 % (42.0-52.0); Hemoglobin 11.5 g/dL (14.0-18.0); Mean Corpuscular Hemoglobin 27.6 pg (26-34); Mean Corpuscular Volume 86.1 fl (80-100); Mean Platelet Volume 9.3 fl (7.4-10.4); Platelet Count Result 203 k/mm3 (150-375); Red Blood Count 4.17 M/mm3 (4.6-6.20); Red Cell Distribution Width 17.2 % (11.5-14.5); White Blood Count 10.5 K/mm3 (4.5-10.0)
[2025-02-27] MEDS: IPRATROPIUM 0.5 MG/ALBUTEROL SULFATE 2.5 MG AMPUL.NEB 3 ML INHALATION ×3 (08:02→21:26)
[2025-02-27] MEDS: FLUTICASONE/SALMETEROL 115-21 MCG INHALER 1 PUFF 2 PUFF INHALATION (08:02)
[2025-02-27 08:07] LABS: Alanine Aminotransferase 30 U/L (6-50); Albumin Level 3.5 g/dL (3.5-5.1); Alkaline Phosphatase 97 U/L (38-126); Anion Gap 5 mmol/L (4-12); Aspartate Amino Transferase 29 U/L (17-59); Bilirubin,Total 0.3 mg/dL (0.2-1.3); Blood Urea Nitrogen 20 mg/dL (9-20); Calcium 8.3 mg/dL (8.4-10.2); Carbon Dioxide 33 mmol/L (22-30); Chloride 94 mmol/L (98-107); Estimated CRCL calculation 114 ml/min; Estimated Glomerular Filt Rate > 60; Glucose 149 mg/dL (65-110); Potassium 4.1 mmol/L (3.4-5.0); Sodium 132 mmol/L (137-145)
[2025-02-27] MEDS: LOSARTAN POTASSIUM 50 MG TABLET PO (09:03)
[2025-02-27] MEDS: lamoTRIgine 100 MG TABLET PO (09:03)
[2025-02-27] MEDS: MORPHINE SULFATE (*CRX) 30 MG TABCR PO (09:04)
[2025-02-27] MEDS: ASPIRIN 81 MG ENTERIC TABLET PO (09:04)
[2025-02-27] MEDS: APIXABAN 5 MG TABLET PO ×2 (09:04→20:17)
[2025-02-27] MEDS: busPIRone HCL 2.5 MG, busPIRone HCL 5 MG 7.5 MG PO ×2 (09:04→20:17)
[2025-02-27] MEDS: amLODIPine BESYLATE 10 MG TABLET PO (09:05)
[2025-02-27] MEDS: hydrOXYzine pamoate 25 MG CAPSULE PO ×2 (09:05→20:16)
[2025-02-27] MEDS: ZIPRASIDONE HCL 80 MG CAPSULE PO ×2 (09:05→20:17)
[2025-02-27] MEDS: ATORVASTATIN 40 MG TABLET PO (09:06)
[2025-02-27] MEDS: carvediloL 12.5 MG TABLET PO ×2 (09:06→20:17)
[2025-02-27] MEDS: PANTOPRAZOLE 40 MG TABLET PO ×2 (09:06→20:22)
[2025-02-27] MEDS: polyethylene glycoL 3350 17 GM POWD.PACK PO (09:07)
[2025-02-27] MEDS: CLOTRIMAZOLE 10 MG TROC MUCOUS MEM ×3 (09:07→16:40)
[2025-02-27] MEDS: FUROSEMIDE INJ 40 MG/4 ML VIAL IV PUSH (09:08)
[2025-02-27] MEDS: DOXYCYCLINE 100 MG/NS 100 ML 100 MG/100 ML BAG IVPB (09:08)
[2025-02-27] MEDS: guaiFENesin 12 HR 600 MG TABCR 1200 MG PO ×2 (10:04→20:16)
--- NOTE | 2025-02-27 10:27 | P.CONPL_ITS ---
Assessment and Plan Assessment and plan (1) Asthma-COPD overlap syndrome: Code(s): J44.89 - Other specified chronic obstructive pulmonary disease Status: Acute Assessment and Plan: Patient carries a history of asthma -COPD. PFTs on 03/01/2024 with normal spirometry, FEV1 2.44 L, 84% predicted, ratio 71%, no bronchodilator response, normal lung volumes and normal diffusing capacity. He has tobacco use with mild apical predominant paraseptal emphysema. He is not on any home oxygen. Maintained on Symbicort. Of note CT scan of the chest also with peripheral reticulations and septal thickening on 10/23/2024 with no change compared to 03/01/2024. He had improved bilateral ground-glass infiltrates on 03/23/2024 and improved left upper lobe aeration. Patient continues to smoke 3-4 cigarettes a day. Patient has been treated for asthma COPD exacerbation, pneumonia and fluid overload. 02/27/2025: Patient states he is better and breathing back to his normal. His cough it is is normal. He has no phlegm and feels like it is stuck. He has no hemoptysis. He has not been walking. When I enter the room the patient was on 2 L nasal cannula with saturations 96%. I decreased him to room air and after 17 minutes his saturations were 91%. he is afebrile. White blood cell count 5.1, Creatinine is 0.56. Plan: Overall the patient has improved. I changes Solu-Medrol to prednisone 40 mg p.o. q.day. I will continue DuoNebs q.6 hours. Patient states he has trouble expectorating his phlegm and I will add guaifenesin 1200 mg p.o. b.i.d.. I will add a Cornet flutter valve. Regarding possible pneumonia: He has been afebrile. White blood cell count on presentation was 4.5 and today is 10.5 while on steroids, he has no cough and minimal no phlegm production. There is no evidence of focal consolidations on his chest x-ray. MRSA swab negative. Currently he has received azithromycin x1 dose on 02/25, vancomycin on 1 dose on 02/25 and doxycycline and cefepime since 02/25, both day 3. Will continue for now. respiratory pathogen panel ordered. I will send a procalcitonin. I will check a chest x-ray tomorrow morning. Regarding possible fluid overload: He is on Lasix 40 IV q.day. cumulative since admission he is -1.1 L. I have ordered daily weights. I will order a BNP in the morning. Discussed with Dr. Moreno, will follow with you. (2) Non-small cell carcinoma of lung: Onset Date: 03/2024 Qualifiers: Laterality: left Qualified Code(s): C34.92 - Malignant neoplasm of unspecified part of left bronchus or lung Code(s): C34.90 - Malignant neoplasm of unspecified part of unspecified bronchus or lung Status: Acute Assessment and Plan: 01/30/2025: Patient followed at [facility] oncology for poorly differentiated non- small cell lung cancer stage IV on 06/19/2024. status post palliative radiation therapy to the sternum and sacrum completed 08/19/2024. Status post 4 cycles of Carboplatinum and pacitaxil on 01/09/2025. in the last noticed CT scan on 01/20/2025 compared to 12/12/2024 showed no change in his left upper lobe radiation changes, no change in his paraseptal emphysema, no change in his left lower lobe nodule with encasement of the left pulmonary artery and unchanged persistent chronic infiltrates. Given his persistent infiltrates immunotherapy with pembrolizumab was held with a plan for CT scan and clinic visit on 02/20/2025. I do not have that clinic note but the patient tells me he was told his CT scan showed no change and that they were still going to hold his chemotherapy. Plan: Per the patient's report his CT scan on 02/20/2025 was unchanged. I do not see need to repeat a CT scan at this time. (3) SHAYNE (obstructive sleep apnea): Code(s): G47.33 - Obstructive sleep apnea (adult) (pediatric) Status: Acute Assessment and Plan: 03/04/2024: Oximetry Data The oxygen desaturation index (ROCKY 4%:) is 7.9. The mean saturation is 93%, and the lowest saturation is 84%. Time spent with saturation < 88% is 0.5 minutes. The patient had an overall AHI of 7.9 with desaturation down to 84%. This is consistent with mild sleep apnea. Due to the patient's COPD, he qualifies for PAP therapy. I recommend that the patient be prescribed Resmed AirSense 11 AutoPAP 5-15 cm H2O, CPAP mask/filters/tubing and heated humidity. 02/27/25: The patient was set up with a machine but tells me he has never worn this at home. Plan: He says he will try auto PAP 5-15 on room air. I will obtain an overnight oximetry on these settings. (4) Tobacco use: Code(s): Z72.0 - Tobacco use Status: Acute Assessment and Plan: 02/27/2025: Patient continues to smoke 3-4 cigarettes a day. Plan: Tobacco cessation counseling provided. History of Present Illness History of Present Illness Consult date: 02/27/25 Chief complaint: COPD Exacerbation/Pneumonia Narrative: 02/27/2025: This is a new pulmonary consult for COPD exacerbation, pneumonia and lung cancer. patient with a history of hypertension, peripheral vascular disease, mitral regurgitation, atrial fibrillation, mild obstructive sleep apnea, asthma-COPD, metastatic poorly differentiated non-small cell lung cancer. Patient was previously followed in the Pulmonary Clinic and was last seen on 04/30/2024. He was a no-show on 08/20/2024, 10/28/2024 and 11/22/2024. this is a note from 04/30/2024 Josafat is a pleasant 63yo M here for new patient consultation regarding asthma- COPD. Referred by his PCP, [facility] Natalie Baum. * Hx combined systolic and diastolic heart failure, HTN. Hx bipolar disorder, generalized anxiety, substance abuse. GERD. * Josafat was previously followed by [facility] Pulmonology, Dr Adebayo Weeks and Dr Moctezuma. Reviewed his last office note from seeing them 02/2023 - Diagnosis of asthma/COPD overlap syndrome with airway hyperactivity, occasional wheezing, could walk up 2 flights of stairs twice daily without difficulty, was working on quitting smoking and getting a home sleep study. Today he tells me overall his breathing feels the same compared to last visit. COUGHLIN is unchanged. Occasional cough is often productive of white thick sputum. Occasional wheezing and chest congestion. Mucinex helps his chest congestion. His respiratory regimen includes Symbicort 160 2 puffs BID; albuterol PRN by HFA and nebulizer. He states he is using Symbicort most days. Using albuterol HFA more than 4 times per day. Using albuterol nebulizer 2-3x per week. Current smoker - working on cutting back, wants nicotine patch. Currently smoking 7 to 8 cigarettes per day. He smokes marijuana most days. 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 Plan: Continue Symbicort, albuterol p.r.n. and added DuoNebs p.r.n.. Continue Mucinex. Mild sleep apnea with an AHI of 7.19 on sleep study 03/04/2024. Recommendation auto PAP 5-15. He was delivered a CPAP machine in March but has not used it. smoking cessation was provided. Referred to Dr. Beauchamp for EBUS. 01/30/2025: Patient followed at [facility] oncology for poorly differentiated non- small cell lung cancer stage IV on 06/19/2024. status post palliative radiation therapy to the sternum and sacrum completed 08/19/2024. Status post 4 cycles of Carboplatinum and pacitaxil on 01/09/2025. in the last noticed CT scan on 01/20/2025 compared to 12/12/2024 showed no change in his left upper lobe radiation changes, no change in his paraseptal emphysema, no change in his left lower lobe nodule with encasement of the left pulmonary artery and unchanged persistent chronic infiltrates. Given his persistent infiltrates immunotherapy with pembrolizumab was held with a plan for CT scan and clinic visit on 02/20/2025. I do not have that clinic note but the patient tells me he was told his CT scan showed no change and that they were still going to hold his chemotherapy. at baseline patient can walk half a block. He tells me he has daily wheezing even when he is feeling good. He is currently smoking 3-4 cigarettes a day. He is on no home oxygen. 02/25/2025: Patient presented to the emergency room on 02/25/2025 with shortness of breath And dyspnea on exertion for 2 days. He had expiratory wheezes in the emergency room. On 4 L nasal cannula his saturations were 94%. His white blood cell count was 4.5, his creatinine 0.53, BNP 482, ABG on 7 L was 7.37/54/53. His COVID influenza and RSV RT PCR were negative. Chest x-ray compared with 01/19/2025 showed increased bilateral interstitial infiltrates, elevated left hemidiaphragm. Patient was treated for possible COPD exacerbation, pneumonia and fluid overload with DuoNebs, Solu-Medrol, vancomycin, cefepime, azithromycin, IV Lasix. 02/26/2025: chart says the patient is improved. MRSA negative antibiotics changed to cefepime and doxycycline. 02/27/2025: Patient states he is better and breathing back to his normal. His cough it is is normal. He has no phlegm and feels like it is stuck. He has no hemoptysis. He has not been walking. When I enter the room the patient was on 2 L nasal cannula with saturations 96%. I decreased him to room air and after 17 minutes his saturations were 91%. he is afebrile. White blood cell count 5.1, Creatinine is 0.56. DATA: * 04/18/24 - CT chest w con - There is mild emphysema. There is chronic peripheral septal thickening in the lungs. No bronchiectasis or honeycombing. No pleural effusion. The heart size is normal. There are coronary artery calcifications. No pericardial effusion. There is mediastinal and bilateral hilar lymphadenopathy. For example, a left hilar juan mass measures 4.6 x 2.6 cm. There is mass effect on the pulmonary arteries at the left hilum. Calcifications in the liver and spleen are consistent with old granulomatous disease. There is a 10 mm cyst in the liver. There is a 3.4 cm cyst in left kidney. (PET ordered, denied by insurance. Referred to [facility] for EBUS). * 03/01/24 - LDCT - There is minimal diffuse subpleural reticulation. No pulmonary nodule identified. Possible fullness of left hilum. Enlarged lymph node or mass lesion not completely excluded, however this could be due to prominent vascular structures. Consider contrast-enhanced chest CT to confirm or exclude abnormal mass lesion/lymph node. * 03/04/24 - Home sleep test - Mild SHAYNE, AHI 7.9 with desaturation to 84%. APAP recommended. * 03/01/24 - PFT - The spirometry is normal without evidence of an obstructive abnormality. There is no significant improvement after inhaling a single dose of albuterol. The lung volumes are normal. The diffusing capacity is normal. * 03/01/24 - 6mw - Normal. He did not require supplemental oxygen at rest or with walking.Diagnostic data from his [facility] Pulmonology records dated 02/2023: * 01/31/2023 - CT chest wo -unchanged appearance of pulmonary nodule in the right lower lobe measuring 4 mm. There is an additional may bring 2 mm nodule that is unchanged. Recommend continued annual screening with low-dose chest CT. Simple cyst in the left kidney. Simple hepatic cyst vs. Hemangioma in the right sharon liver. * 02/07/2022 - CT chest -pulmonary nodule and right lower lobe, unchanged from prior with a new additional knee bring 2 mm nodule. Lung rads 2. Recommend continued annual screening low-dose chest CT. * 02/07/2022 - Echo -findings consistent with normal LV systolic function, borderline dilated LV and moderate functional MR due to LV and annular dilatation. EF 68%. Grade 2 diastolic dysfunction. No aortic stenosis. Mild concentric LVH. LV segmental wall motion is normal. There is moderate functional mitral regurgitation. No pulmonary hypertension, estimated PA SP is 28 mm Hg. * 12/21/2020 - FeNo -high normal fractional exhaled nitric oxide 35 ppb. Compared to the prior study on 09/14/2018, the FeNO has increased by 30ppb. * 12/21/2020 - Methacholine challenge -there was a significant decrease noted in the FEV1 in there was a significant decrease in specific conductance. The PD20 is 41 ug and PD35 is 7.5ug. Impression: Mild airway hyper responsiveness. No prior test is available for comparison. * 03/04/2020 - PFT - isolated severe air trapping in an otherwise normal pulmonary function test. No comparison studies available. * 09/17/2018 - 6mw - total 6 minute walk distances Force 30 m, which is above the lower limit of normal 370 m for this patient. No previous for comparison. At the above level of activity the patient's oxygen saturation maintained above 97% on room air. The patient did not have significant oxygen desaturation while walking at 1-2 mph. Review of Systems 2 Constitutional: Constitutional: Reports no additional constitutional complaints Eyes: Eyes: Reports no additional eye complaints ENT: Reports system reviewed and no additional complaints, except as documented Cardiovascular: Cardiovascular: Reports no additional cardiovascular complaints Respiratory: Respiratory: Reports no additional respiratory complaints Gastrointestinal: Gastrointestinal: Reports no additional gastrointestinal complaints Musculoskeletal: Musculoskeletal: Reports no additional musculoskeletal complaints Neurologic: Reports system reviewed and no additional complaints, except as documented Psychiatric: Psychiatric: Reports no additional psychiatric complaints Endocrine: Endocrine: Reports no additional endocrine complaints Hematologic/Lymphatic: Hematologic/Lymphatic: Reports no additional hematologic/lymphatic complaints Allergic/Immunologic: Allergic/Immunologic: Reports no additional allergic/immunologic complaints COUNT INCLUDES THE [facility] Past Medical History Medical History Hyponatremia Mitral regurgitation Systolic dysfunction Diastolic dysfunction (04/2024) PAF (paroxysmal atrial fibrillation) Cardiomyopathy Arthritis Bronchitis Asthma COPD (chronic obstructive pulmonary disease) HTN (hypertension) Glaucoma Surgical History Surgical History History of knee replacement procedure of right knee Family History Family History Father Alcoholism Heart problem Hypertension Sibling Alcoholism Cancer Hypertension Mother Cancer Hypertension Grandparent Diabetes mellitus Heart problem Hypertension Sibling Cancer Hypertension Social History Social History Smoking packs per day: 0.5 Smoking cigarettes per day: 10.0 Years smoked: 40 Smoking pack-years: 20.00 Smoking status: Current every day smoker Alcohol intake: never Substance use: current Substance use type: marijuana Other substance usage details: 4 x wk Do You Feel Safe in your Home?: Yes Lack of Transportation: YES Lack of Food: Never True Current Housing: I Have Housing Concerned About Future Housing: No Difficulty Paying Gas/Electric Bills: No Difficulty Paying for Meds: No Currently Unemployed: No Education: Associate Degree Difficulty w/ Childcare or Family Care: No Gender identity (if verbalized by the patient): Male Spiritual care concerns: No Meds Home Medications and Allergies Home Medications ?Medication ?Instructions ?Recorded ?Confirmed ?Type latanoprost 0.005 % eye drops 1 drp ophthalmic (eye) DAILY 05/05/20 02/25/25 History alfuzosin 10 mg tablet,extended 10 mg PO DAILY 12/12/23 02/25/25 History release 24 hr aspirin 81 mg tablet,delayed 81 mg PO DAILY 12/12/23 02/25/25 History release (Adult Aspirin Regimen) atorvastatin 40 mg tablet 40 mg PO DAILY 12/12/23 02/25/25 History buspirone 7.5 mg tablet 10 mg PO BID 12/12/23 02/25/25 History carvedilol 12.5 mg tablet 12.5 mg PO Q12H 12/12/23 02/25/25 History hydroxyzine pamoate 100 mg capsule 25 mg PO Q12H 12/12/23 02/25/25 History lamotrigine 100 mg tablet 100 mg PO DAILY 12/12/23 02/25/25 History ziprasidone HCl 80 mg capsule 80 mg PO BID 12/12/23 02/25/25 History omeprazole 40 mg capsule,delayed 40 mg PO DAILY #90 caps 02/20/24 02/25/25 Rx release clotrimazole 10 mg humberto 10 mg mucous membrane TID #30 tabs 08/23/24 02/25/25 Rx apixaban 5 mg tablet (Eliquis) 5 mg PO BID #60 tabs 09/06/24 02/25/25 Rx budesonide-formoterol HFA 160 See Rx Instructions .Route 09/09/24 02/25/25 Rx mcg-4.5 mcg/actuation aerosol .COMPLEX #10.2 ea inhaler (Symbicort) acetaminophen 500 mg tablet 500 mg PO Q6H PRN Pain (Scale 09/13/24 02/25/25 History Score 1-3) morphine 30 mg tablet,extended 30 mg PO Q12H PRN pain 09/13/24 02/25/25 History release ondansetron HCl 8 mg tablet 8 mg PO BID PRN Nausea And Vomiting 09/13/24 02/25/25 History oxycodone 5 mg tablet 10 mg PO Q4H PRN Pain (Scale Score 09/13/24 02/25/25 History 7-10) losartan 50 mg tablet See Rx Instructions .Route 09/27/24 02/25/25 Rx .COMPLEX #30 tabs prednisone 20 mg tablet 40 mg (2 x 20 mg) PO DAILY 5 days 12/04/24 02/25/25 Rx #10 tabs albuterol sulfate 90 mcg/actuation See Rx Instructions .Route 02/04/25 02/25/25 Rx aerosol inhaler .COMPLEX #8.5 ea ipratropium 0.5 mg-albuterol 3 mg See Rx Instructions .Route 02/18/25 02/25/25 Rx (2.5 mg base)/3 mL nebulization .COMPLEX #360 mL soln Allergies Allergy/AdvReac Type Severity Reaction Status Date / Time lisinopril Allergy Severe ANGIOEDEMA Verified 02/25/25 15:20 Penicillins Allergy Unknown Swelling Verified 02/25/25 15:20 Vital Signs Vital Signs - 24 hr 02/26/25 11:07 02/26/25 12:00 02/26/25 13:46 Temperature Pulse Rate 94 95 89 Respiratory Rate 20 20 Blood Pressure 125/81 Pulse Oximetry 95 Oxygen Delivery Oxygen Flow Rate 02/26/25 13:57 02/26/25 14:00 02/26/25 16:00 Temperature 36.6 C Pulse Rate 89 91 92 Respiratory Rate 20 20 Blood Pressure 114/71 Pulse Oximetry 96 Oxygen Delivery Oxygen Flow Rate 02/26/25 20:00 02/26/25 20:00 02/26/25 20:00 Temperature 36.4 C Pulse Rate 89 85 Respiratory Rate 20 Blood Pressure 126/79 Pulse Oximetry 96 96 Oxygen Delivery Nasal Cannula Oxygen Flow Rate 3 02/26/25 20:09 02/26/25 23:00 02/27/25 00:00 Temperature Pulse Rate 90 82 Respiratory Rate Blood Pressure Pulse Oximetry 97 Oxygen Delivery Nasal Cannula Oxygen Flow Rate 3 02/27/25 04:00 02/27/25 05:02 02/27/25 06:03 Temperature 36.5 C Pulse Rate 82 78 88 Respiratory Rate 17 20 Blood Pressure 125/83 Pulse Oximetry 98 Oxygen Delivery Oxygen Flow Rate 02/27/25 06:09 02/27/25 08:03 02/27/25 08:03 Temperature Pulse Rate 83 84 Respiratory Rate 20 20 Blood Pressure Pulse Oximetry 97 Oxygen Delivery Nasal Cannula Oxygen Flow Rate 3 02/27/25 08:16 02/27/25 08:41 02/27/25 09:00 Temperature Pulse Rate 95 Respiratory Rate 20 Blood Pressure Pulse Oximetry 93 92 Oxygen Delivery Nasal Cannula Room Air Oxygen Flow Rate 2 02/27/25 09:00 02/27/25 09:06 Temperature Pulse Rate 87 104 H Respiratory Rate Blood Pressure Pulse Oximetry Oxygen Delivery Oxygen Flow Rate Exam 2 Const: General: cooperative, healthy appearing and comfortable O rientation/consciousness: oriented to person, oriented to place and oriented to time HENMT: Head: normal to inspection Ears: hearing grossly normal bilaterally Eyes: General: appearance normal, both eyes and all related structures Neck: Neck: normal visual inspection Chest: Chest palpation & inspection: normal inspection of the chest Resp: Effort & Inspection: normal respiratory effort and able to speak in complete sentences Auscultation: crackles, no rales, no rhonchi, no wheezes and lung sounds not diminished Other: No wheezes, crackles right greater than left. Cardio: Jugular venous distension: no JVD GI: Inspection: normal to inspection GI Palp: No abdominal tenderness Skin: General skin exam: normal color Neuro: General: oriented to person, oriented to place and oriented to time Extrem: General: normal to inspection and no edema Psych: Appearance: grossly normal Results Laboratory Findings 02/27/25 07:40 02/27/25 07:40 ABG, PT/INR, D-dimer: ABG ABG pH 7.371 (7.350-7.450) 02/25/25 11:47 ABG pCO2 54.4 mmHg (35.0-45.0) H 02/25/25 11:47 ABG pO2 152.6 mmHg (80.0-100.0) H 02/25/25 11:47 ABG O2 Saturation 98.9 % (95.0-100.0) 02/25/25 11:47 Abnormal lab findings: Abnormal Labs 02/25/25 02/25/25 02/27/25 06:25 11:47 07:40 WBC 10.5 H RBC 4.35 L 4.17 L Hgb 11.9 L 11.5 L Hct 38.4 L 35.9 L MCHC 31.0 L RDW 17.0 H 17.2 H Neut % (Auto) 74.6 H Lymph % (Auto) 12.3 L [place] % (Auto) 12.1 H Lymph # (Auto) 0.55 L ABG pCO2 54.4 H ABG pO2 152.6 H ABG HCO3 30.8 H Sodium 131 L 132 L Chloride 94 L 94 L Carbon Dioxide 33 H Creatinine 0.53 L 0.56 L Glucose 120 H 149 H Calcium 8.3 L NT-Pro-B Natriuret Pep 482 H Diagnostic Findings Additional studies: ITS Impressions Chest X-Ray 02/25/25 06:56 Impression: Probable mild worsening bibasilar airspace disease. Correlate for mild pulmonary edema or possibly pneumonia. Stable left upper lobe scarring.
[2025-02-27] MEDS: predniSONE 20 MG TABLET 40 MG PO (11:53)
[2025-02-27 11:56] LABS: Procalcitonin 0.1 ng/mL
[2025-02-27] MEDS: DOXYCYCLINE HYCLATE 100 MG TABLET PO (20:17)
[2025-02-27] MEDS: oxyCODONE HCL (*CRX) 5 MG TAB IR 10 MG PO (20:37)
[2025-02-27] MEDS: LATANOPROST 0.005% OP SOLN 2.5 ML BTL 1 DROP EACH EYE (20:39)
[2025-02-28] VITALS (12 sets, daily range): BP systolic 140; BP diastolic 85; PULSE 78–122; RESP 18–20; TEMP 36.9; O2SAT 87–94
[2025-02-28] MEDS: WATER FOR IRRIGATION, STERILE 500 ML BOTTLE (00:09)
[2025-02-28] MEDS: NICOTINE (*PBKC) 14 MG PATCH 1 PATCH TRANSDERM ×2 (00:09→09:54)
--- NOTE | 2025-02-28 05:15 | PCRCNOTE ---
0200 neb tx was omitted due to oximetry study
[2025-02-28 05:43] LABS: NT Pro B Type Natriuretic Pept 129 pg/mL (19.9-100)
[2025-02-28] MEDS: CEFEPIME 2 GM/NS 50 ML 2 GM/50 ML BAG IVPB (06:06)
[2025-02-28] MEDS: IPRATROPIUM 0.5 MG/ALBUTEROL SULFATE 2.5 MG AMPUL.NEB 3 ML INHALATION (08:35)
--- NOTE | 2025-02-28 09:31 | P.PNPL_ITS ---
Progress Note: A&P Assessment and Plan (1) Asthma-COPD overlap syndrome: Code(s): J44.89 - Other specified chronic obstructive pulmonary disease Status: Acute Assessment and Plan: Patient carries a history of asthma -COPD. PFTs on 03/01/2024 with normal spirometry, FEV1 2.44 L, 84% predicted, ratio 71%, no bronchodilator response, normal lung volumes and normal diffusing capacity. He has tobacco use with mild apical predominant paraseptal emphysema. He is not on any home oxygen. Maintained on Symbicort. Of note CT scan of the chest also with peripheral reticulations and septal thickening on 10/23/2024 with no change compared to 03/01/2024. He had improved bilateral ground-glass infiltrates on 03/23/2024 and improved left upper lobe aeration. Patient continues to smoke 10 cigarettes a day. Patient has been treated for asthma COPD exacerbation, pneumonia and fluid overload. 02/27/2025: Patient states he is better and breathing back to his normal. His cough it is is normal. He has no phlegm and feels like it is stuck. He has no hemoptysis. He has not been walking. When I enter the room the patient was on 2 L nasal cannula with saturations 96%. I decreased him to room air and after 17 minutes his saturations were 91%. he is afebrile. White blood cell count 5.1, Creatinine is 0.56. Plan: Overall the patient has improved. I changes Solu-Medrol to prednisone 40 mg p.o. q.day. I will continue DuoNebs q.6 hours. Patient states he has trouble expectorating his phlegm and I will add guaifenesin 1200 mg p.o. b.i.d.. I will add a Cornet flutter valve. Regarding possible pneumonia: He has been afebrile. White blood cell count on presentation was 4.5 and today is 10.5 while on steroids, he has no cough and minimal no phlegm production. There is no evidence of focal consolidations on his chest x-ray. MRSA swab negative. Currently he has received azithromycin x1 dose on 02/25, vancomycin on 1 dose on 02/25 and doxycycline and cefepime since 02/25, both day 3. Will continue for now. respiratory pathogen panel ordered. I will send a procalcitonin. I will check a chest x-ray tomorrow morning. Regarding possible fluid overload: He is on Lasix 40 IV q.day. cumulative since admission he is -1.1 L. I have ordered daily weights. I will order a BNP in the morning. 02/28/2025: Patient tells me he is breathing normal, he denies cough, phlegm or hemoptysis. He tells me he is not wheezing. He has walked around the room and feels normal. When I enter the room he is on 1 L nasal cannula saturations 95% I changed him to room air and his saturations were 94%. Plan: From a pulmonary perspective patient is ready to be discharged on these pulmonary medications: Prednisone 40 mg p.o. q.day x1 day. Cefdinir 300 mg p.o. b.i.d. x7 days. Doxycycline 100 mg p.o. q.12 hours x7 days. Symbicort 160-4.5 at 2 puffs b.i.d. Muscarinic antagonist that insurance will cover (atrovent 2 puffs Q 6 HR, incruse ellipta 62.5 at 1 puffs Q day, spireva 18 mics at 1 puff Q day or spireva respimat 2.5 mics at 2 puff Q day) DuoNebs q.4 hours p.r.n. shortness of breath or wheezing. Rescue albuterol 2 puffs q.4 hours p.r.n. shortness of breath or wheezing Guaifenesin 600 mg p.o. b.i.d. p.r.n. congestion. Oxygen at rest and with activity per formal home O2 assessment which I have ordered. When he naps or sleeps: Auto PAP 5-15 with room air. Follow-up in the Pulmonary Clinic in 4 weeks. I gave him our business card and informed the torch brazer. Discussed with Dr. Mora, will sign off, call with questions. (2) Non-small cell carcinoma of lung: Onset Date: 03/2024 Qualifiers: Laterality: left Qualified Code(s): C34.92 - Malignant neoplasm of unspecified part of left bronchus or lung Code(s): C34.90 - Malignant neoplasm of unspecified part of unspecified bronchus or lung Status: Acute Assessment and Plan: 01/30/2025: Patient followed at [facility] oncology for poorly differentiated non- small cell lung cancer stage IV on 06/19/2024. status post palliative radiation therapy to the sternum and sacrum completed 08/19/2024. Status post 4 cycles of Carboplatinum and pacitaxil on 01/09/2025. in the last noticed CT scan on 01/20/2025 compared to 12/12/2024 showed no change in his left upper lobe radiation changes, no change in his paraseptal emphysema, no change in his left lower lobe nodule with encasement of the left pulmonary artery and unchanged persistent chronic infiltrates. Given his persistent infiltrates immunotherapy with pembrolizumab was held with a plan for CT scan and clinic visit on 02/20/2025. I do not have that clinic note but the patient tells me he was told his CT scan showed no change and that they were still going to hold his chemotherapy. 02/27/25: Plan: Per the patient's report his CT scan on 02/20/2025 was unchanged. I do not see need to repeat a CT scan at this time. (3) SHAYNE (obstructive sleep apnea): Code(s): G47.33 - Obstructive sleep apnea (adult) (pediatric) Status: Acute Assessment and Plan: 03/04/2024: Oximetry Data The oxygen desaturation index (ROCKY 4%:) is 7.9. The mean saturation is 93%, and the lowest saturation is 84%. Time spent with saturation < 88% is 0.5 minutes. The patient had an overall AHI of 7.9 with desaturation down to 84%. This is consistent with mild sleep apnea. Due to the patient's COPD, he qualifies for PAP therapy. I recommend that the patient be prescribed Resmed AirSense 11 AutoPAP 5-15 cm H2O, CPAP mask/filters/tubing and heated humidity. 02/27/25: The patient was set up with a machine but tells me he has never worn this at home. Plan: He says he will try auto PAP 5-15 on room air. I will obtain an overnight oximetry on these settings. 02/28/25: The patient wore the hospital auto PAP 5-15 with room air and said he could not sleep with the mask. It was not painful it was just and uncomfortable feeling. Patient had an overnight oximetry on these settings with recording duration of 4 hours and 43 minutes. Average saturation 93%. Low saturation 90%. Time with saturation less than or equal to 88% was 0 minutes. Oxygen desaturation index 5.4. Plan: Patient does not qualify for oxygen with his auto PAP. Patient had difficult time sleeping with the hospital auto PAP. I have told him he needs to desensitize himself to the auto PAP at home and he should do this by wearing it during the day when he is relaxed for few hours and then progressed to wearing it with naps and then progressed to wearing it at night. He will attempt to do this. (4) Tobacco use: Code(s): Z72.0 - Tobacco use Status: Acute Assessment and Plan: 02/27/2025: Patient continues to smoke 10 cigarettes a day. Plan: Tobacco cessation counseling provided. 02/28/2025: Tobacco cessation counseling was provided. Plan: I told him that the cigarettes or actively killing him. He understands this and does desire to quit. Patient says he does not have any cigarettes in the house and he will not by any. We talked about behavioral modification to enhance cessation. We talked about nicotine gum and lozenges. We talked about nicotine patches and that he cannot wear nicotine patch if he is going to smoke. Subjective Date/time seen: 02/28/25 09:31 Interval history: 02/27/2025: This is a new pulmonary consult for COPD exacerbation, pneumonia and lung cancer. patient with a history of hypertension, peripheral vascular disease, mitral regurgitation, atrial fibrillation, mild obstructive sleep apnea, asthma-COPD, metastatic poorly differentiated non-small cell lung cancer. Patient was previously followed in the Pulmonary Clinic and was last seen on 04/30/2024. He was a no-show on 08/20/2024, 10/28/2024 and 11/22/2024. this is a note from 04/30/2024 Josafat is a pleasant 63yo M here for new patient consultation regarding asthma- COPD. Referred by his PCP, LE Baum. * Hx combined systolic and diastolic heart failure, HTN. Hx bipolar disorder, generalized anxiety, substance abuse. GERD. * Josafat was previously followed by [facility] Pulmonology, Dr Adebayo Weeks and Dr Moctezuma. Reviewed his last office note from seeing them 02/2023 - Diagnosis of asthma/COPD overlap syndrome with airway hyperactivity, occasional wheezing, could walk up 2 flights of stairs twice daily without difficulty, was working on quitting smoking and getting a home sleep study.Today he tells me overall his breathing feels the same compared to last visit. COUGHLIN is unchanged. Occasional cough is often productive of white thick sputum. Occasional wheezing and chest congestion. Mucinex helps his chest congestion. His respiratory regimen includes Symbicort 160 2 puffs BID; albuterol PRN by HFA and nebulizer. He states he is using Symbicort most days. Using albuterol HFA more than 4 times per day. Using albuterol nebulizer 2-3x per week. Current smoker - working on cutting back, wants nicotine patch. Currently smoking 7 to 8 cigarettes per day. He smokes marijuana most days. 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 Plan: Continue Symbicort, albuterol p.r.n. and added DuoNebs p.r.n.. Continue Mucinex. Mild sleep apnea with an AHI of 7.19 on sleep study 03/04/2024. Recommendation auto PAP 5-15. He was delivered a CPAP machine in March but has not used it. smoking cessation was provided. Referred to Dr. Beauchamp for EBUS. 01/30/2025: Patient followed at [facility] oncology for poorly differentiated non- small cell lung cancer stage IV on 06/19/2024. status post palliative radiation therapy to the sternum and sacrum completed 08/19/2024. Status post 4 cycles of Carboplatinum and pacitaxil on 01/09/2025. in the last noticed CT scan on 01/20/2025 compared to 12/12/2024 showed no change in his left upper lobe radiation changes, no change in his paraseptal emphysema, no change in his left lower lobe nodule with encasement of the left pulmonary artery and unchanged persistent chronic infiltrates. Given his persistent infiltrates immunotherapy with pembrolizumab was held with a plan for CT scan and clinic visit on 02/20/2025. I do not have that clinic note but the patient tells me he was told his CT scan showed no change and that they were still going to hold his chemotherapy. at baseline patient can walk half a block. He tells me he has daily wheezing even when he is feeling good. He is currently smoking 3-4 cigarettes a day. He is on no home oxygen. 02/25/2025: Patient presented to the emergency room on 02/25/2025 with shortness of breath And dyspnea on exertion for 2 days. He had expiratory wheezes in the emergency room. On 4 L nasal cannula his saturations were 94%. His white blood cell count was 4.5, his creatinine 0.53, BNP 482, ABG on 7 L was 7.37/54/53. His COVID influenza and RSV RT PCR were negative. Chest x-ray compared with 01/19/2025 showed increased bilateral interstitial infiltrates, elevated left hemidiaphragm. Patient was treated for possible COPD ex acerbation, pneumonia and fluid overload with DuoNebs, Solu-Medrol, vancomycin, cefepime, azithromycin, IV Lasix. 02/26/2025: chart says the patient is improved. MRSA negative antibiotics changed to cefepime and doxycycline. 02/27/2025: Patient states he is better and breathing back to his normal. His cough it is is normal. He has no phlegm and feels like it is stuck. He has no hemoptysis. He has not been walking. When I enter the room the patient was on 2 L nasal cannula with saturations 96%. I decreased him to room air and after 17 minutes his saturations were 91%. he is afebrile. White blood cell count 5.1, Creatinine is 0.56. 02/28/2025: Patient tells me he is breathing normal, he denies cough, phlegm or hemoptysis. He tells me he is not wheezing. He has walked around the room and feels normal. When I enter the room he is on 1 L nasal cannula saturations 95% I changed him to room air and his saturations were 94%. The patient wore the hospital auto PAP 5-15 with room air and said he could not sleep with the mask. It was not painful it was just and uncomfortable feeling. Patient had an overnight oximetry on these settings with recording duration of 4 hours and 43 minutes. Average saturation 93%. Low saturation 90%. Time with saturation less than or equal to 88% was 0 minutes. Oxygen desaturation index 5.4. DATA: * 04/18/24 - CT chest w con - There is mild emphysema. There is chronic peripheral septal thickening in the lungs. No bronchiectasis or honeycombing. No pleural effusion. The heart size is normal. There are coronary artery calcifications. No pericardial effusion. There is mediastinal and bilateral hilar lymphadenopathy. For example, a left hilar juan mass measures 4.6 x 2.6 cm. There is mass effect on the pulmonary arteries at the left hilum. Calcifications in the liver and spleen are consistent with old granulomatous disease. There is a 10 mm cyst in the liver. There is a 3.4 cm cyst in left kidney. (PET ordered, denied by insurance. Referred to [facility] for EBUS). * 03/01/24 - LDCT - There is minimal diffuse subpleural reticulation. No pulmonary nodule identified. Possible fullness of left hilum. Enlarged lymph node or mass lesion not completely excluded, however this could be due to prominent vascular structures. Consider contrast-enhanced chest CT to confirm or exclude abnormal mass lesion/lymph node. * 03/04/24 - Home sleep test - Mild SHAYNE, AHI 7.9 with desaturation to 84%. APAP recommended. * 03/01/24 - PFT - The spirometry is normal without evidence of an obstructive abnormality. There is no significant improvement after inhaling a single dose of albuterol. The lung volumes are normal. The diffusing capacity is normal. * 03/01/24 - 6mw - Normal. He did not require supplemental oxygen at rest or with walking.Diagnostic data from his [facility] Pulmonology records dated 02/2023: * 01/31/2023 - CT chest wo -unchanged appearance of pulmonary nodule in the right lower lobe measuring 4 mm. There is an additional may bring 2 mm nodule that is unchanged. Recommend continued annual screening with low-dose chest CT. Simple cyst in the left kidney. Simple hepatic cyst vs. Hemangioma in the right sharon liver. * 02/07/2022 - CT chest -pulmonary nodule and right lower lobe, unchanged from prior with a new additional knee bring 2 mm nodule. Lung rads 2. Recommend continued annual screening low-dose chest CT. * 02/07/2022 - Echo -findings consistent with normal LV systolic function, borderline dilated LV and moderate functional MR due to LV and annular dilatation. EF 68%. Grade 2 diastolic dysfunction. No aortic stenosis. Mild concentric LVH. LV segmental wall motion is normal. There is moderate functional mitral regurgitation. No pulmonary hypertension, estimated PA SP is 28 mm Hg. * 12/21/2020 - FeNo -high normal fractional exhaled nitric oxide 35 ppb. Compared to the prior study on 09/14/2018, the FeNO has increased by 30ppb. * 12/21/2020 - Methacholine challenge -there was a significant decrease noted in the FEV1 in there was a significant decrease in specific conductance. The PD20 is 41 ug and PD35 is 7.5ug. Impression: Mild airway hyper responsiveness. No prior test is available for comparison. * 03/04/2020 - PFT - isolated severe air trapping in an otherwise normal pulmonary function test. No comparison studies available. * 09/17/2018 - 6mw - total 6 minute walk distances Force 30 m, which is above the lower limit of normal 370 m for this patient. No previous for comparison. At the above level of activity the patient's oxygen saturation maintained above 97% on room air. The patient did not have significant oxygen desaturation while walking at 1-2 mph. Review of Systems Constitutional: Constitutional: Reports no additional constitutional complaints Eyes: Eyes: Reports no additional eye complaints ENT: Reports system reviewed and no additional complaints, except as documented Cardiovascular: Cardiovascular: Reports no additional cardiovascular complaints Respiratory: Respiratory: Reports no additional respiratory complaints Gastrointestinal: Gastrointestinal: Reports no additional gastrointestinal complaints Musculoskeletal: Musculoskeletal: Reports no additional musculoskeletal complaints Neurologic: Reports system reviewed and no additional complaints, except as documented Psychiatric: Psychiatric: Reports no additional psychiatric complaints Endocrine: Endocrine: Reports no additional endocrine complaints Hematologic/Lymphatic: Hematologic/Lymphatic: Reports no additional hematologic/lymphatic complaints Allergic/Immunologic: Allergic/Immunologic: Reports no additional allergic/immunologic complaints Exam Const: General: cooperative, healthy appearing and comfortable Orientation/consciousness: oriented to person, oriented to place and oriented to time HENMT: Head: normal to inspection Ears: hearing grossly normal bilaterally Eyes: General: appearance normal, both eyes and all related structures Neck: Neck: normal visual inspection Chest: Chest palpation & inspection: normal inspection of the chest Resp: Effort & Inspection: normal respiratory effort and able to speak in complete sentences Auscultation: crackles, no rales, no rhonchi, no wheezes and lung sounds not diminished Other: No wheezes, crackles right greater than left. Cardio: Jugular venous distension: no JVD GI: Inspection: normal to inspection Skin: General skin exam: normal color Neuro: General: oriented to person, oriented to place and oriented to time Extrem: General: normal to inspection and no edema Psych: Appearance: grossly normal Objective Data Vital Signs Vital Signs: Vital Signs - 24 hr 02/27/25 09:45 02/27/25 11:47 02/27/25 12:00 Temperature Pulse Rate Respiratory Rate Blood Pressure Pulse Oximetry 93 92 Oxygen Delivery Nasal Cannula Nasal Cannula Nasal Cannula Oxygen Flow Rate 1 1 1 Fraction of Inspired Oxygen 02/27/25 12:00 02/27/25 13:55 02/27/25 14:01 Temperature 36.4 C Pulse Rate 98 98 95 Respiratory Rate 18 20 Blood Pressure 115/94 H Pulse Oximetry 97 Oxygen Delivery Oxygen Flow Rate Fraction of Inspired Oxygen 02/27/25 14:12 02/27/25 16:00 02/27/25 20:00 Temperature Pulse Rate 95 94 97 Respiratory Rate 20 18 Blood Pressure Pulse Oximetry 96 Oxygen Delivery Nasal Cannula Oxygen Flow Rate 1 Fraction of Inspired Oxygen 32 02/27/25 20:00 02/27/25 20:07 02/27/25 21:28 Temperature 36.7 C Pulse Rate 98 97 94 Respiratory Rate 18 20 Blood Pressure 131/77 Pulse Oximetry 96 Oxygen Delivery Oxygen Flow Rate Fraction of Inspired Oxygen 02/27/25 21:38 02/27/25 22:15 02/27/25 22:33 Temperature Pulse Rate 96 91 Respiratory Rate 20 21 H Blood Pressure Pulse Oximetry 94 94 Oxygen Delivery Room Air Autopap Oxygen Flow Rate Fraction of Inspired Oxygen 02/28/25 00:00 02/28/25 04:00 02/28/25 04:50 Temperature 36.9 C Pulse Rate 80 78 89 Respiratory Rate 18 Blood Pressure 140/85 Pulse Oximetry 94 Oxygen Delivery Oxygen Flow Rate Fraction of Inspired Oxygen 02/28/25 08:35 Temperature Pulse Rate 100 Respiratory Rate 20 Blood Pressure Pulse Oximetry Oxygen Delivery Oxygen Flow Rate Fraction of Inspired Oxygen Intake/Output Intake/Output: Intake & Output 02/25/25 02/26/25 02/27/25 02/28/25 23:59 23:59 23:59 23:59 Intake Total 930 3230 1920 450 Output Total 2250 2550 2550 6509 Ofjukad -1155 287 -283 -410 Meds/Results Medications: Active Medications Generic Name Dose Route Start Last Admin Trade Name Freq PRN Reason Stop Dose Admin Acetaminophen 500 mg 02/26/25 08:18 Acetaminophen 500 Mg Tablet PO Q6H PRN Pain (Scale Score 1-3) Acetaminophen 650 mg 02/26/25 08:25 Acetaminophen 325 Mg Tablet PO Q4H PRN Fever Hydrocodone Bitart/Acetaminophen 1 tab 02/25/25 09:41 Hydrocodone/Acetaminophen (*Crx) 5-325 Mg Tablet PO Q4H PRN Pain Rated 4-6 Albuterol 2.5 mg 02/25/25 10:00 02/27/25 06:02 Albuterol Sulfate Neb 2.5 Mg/3 Ml Inh INHALATION 2.5 mg Q4HRT PRN Administration Shortness Of Breath Or Wheezing Albuterol/Ipratropium 3 ml 02/27/25 14:00 02/28/25 08:35 Ipratropium 0.5 Mg/Albuterol Sulfate 2.5 Mg Ampul.Neb 3 Ml INHALATION 3 ml Q6HRT DARIEL Administration Alfuzosin HCl 10 mg 02/26/25 09:00 02/27/25 09:04 Alfuzosin 10 Mg Er Tablet PO 10 mg DAILY DARIEL Administration Amlodipine Besylate 10 mg 02/26/25 09:00 02/27/25 09:05 Amlodipine Besylate 10 Mg Tablet PO 10 mg DAILY DARIEL Administration Apixaban 5 mg 02/25/25 21:30 02/27/25 20:17 Apixaban 5 Mg Tablet PO 5 mg Q12HR DARIEL Administration Aspirin 81 mg 02/26/25 09:00 02/27/25 09:04 Aspirin 81 Mg Enteric Tablet PO 81 mg DAILY DARIEL Administration Atorvastatin Calcium 40 mg 02/26/25 09:00 02/27/25 09:06 Atorvastatin 40 Mg Tablet PO 40 mg DAILY DARIEL Administration Buspirone HCl 2.5 mg/ 7.5 mg 02/25/25 21:35 02/27/25 20:17 Buspirone HCl 5 mg PO 7.5 mg Q12HR DARIEL Administration Carvedilol 12.5 mg 02/25/25 21:00 02/27/25 20:17 Carvedilol 12.5 Mg Tablet PO 12.5 mg Q12HR DARIEL Administration Clotrimazole 10 mg 02/26/25 09:00 02/27/25 16:40 Clotrimazole 10 Mg Troc MUCOUS MEM 10 mg TID DARIEL Administration Doxycycline Hyclate 100 mg 02/27/25 21:00 02/27/25 20:17 Doxycycline Hyclate 100 Mg Tablet PO 03/06/25 21:01 100 mg Q12HR DARIEL Administration Furosemide 40 mg 02/25/25 10:05 02/27/25 09:08 Furosemide Inj 40 Mg/4 Ml Vial IV PUSH 40 mg DAILY DARIEL Administration Guaifenesin 1,200 mg 02/27/25 09:50 02/27/25 20:16 Guaifenesin 12 Hr 600 Mg Tabcr PO 1,200 mg Q12HR DARIEL Administration Hydroxyzine Pamoate 25 mg 02/26/25 09:00 02/27/25 20:16 Hydroxyzine Pamoate 25 Mg Capsule PO 25 mg Q12HR DARIEL Administration Cefepime HCl 2 gm in 50 mls @ 100 mls/hr 02/25/25 11:30 02/28/25 06:06 Maxipime 2 Gm/Ns 50 Ml IVPB 100 mls/hr Q8HR DARIEL Administration Lamotrigine 100 mg 02/26/25 09:00 02/27/25 09:03 Lamotrigine 100 Mg Tablet PO 100 mg DAILY DARIEL Administration Latanoprost 1 drop 02/25/25 21:35 02/27/25 20:39 Latanoprost 0.005% Op Soln 2.5 Ml Btl EACH EYE 1 drop HS DARIEL Administration Losartan Potassium 50 mg 02/26/25 09:00 02/27/25 09:03 Losartan Potassium 50 Mg Tablet PO 50 mg DAILY DARIEL Administration Morphine Sulfate 30 mg 02/26/25 09:00 02/27/25 09:04 Morphine Sulfate (*Crx) 30 Mg Tabcr PO 30 mg DAILY DARIEL Administration Nicotine 1 patch 02/28/25 09:00 Nicotine (*Pbkc) 14 Mg Patch TRANSDERM DAILY DARIEL Ondansetron HCl 4 mg 02/25/25 09:41 Ondansetron Inj 4 Mg/2 Ml Vial IV PUSH Q4H PRN Nausea Oxycodone HCl 10 mg 02/26/25 08:18 02/27/25 20:37 Oxycodone Hcl (*Crx) 5 Mg Tab Ir PO 10 mg Q4H PRN Administration Pain (Scale Score 7-10) Pantoprazole Sodium 40 mg 02/26/25 09:00 02/27/25 20:22 Pantoprazole 40 Mg Tablet PO 40 mg Q12HR DARIEL Administration Polyethylene Glycol 17 gm 02/25/25 14:35 02/27/25 09:07 Polyethylene Glycol 3350 17 Gm Powd.Pack PO 17 gm QAM DARIEL Administration Prednisone 40 mg 02/27/25 10:50 02/27/25 11:53 Prednisone 20 Mg Tablet PO 40 mg DAILY@0800 DARIEL Administration Ziprasidone 80 mg 02/25/25 21:35 02/27/25 20:17 Ziprasidone Hcl 80 Mg Capsule PO 80 mg Q12HR DARIEL Administration Radiology Results: ITS Impressions Chest X-Ray 02/28/25 06:21 Impression: Worsening hazy right midlung airspace disease, suspicious for pneumonia. Stable left upper lobe scarring. Labs Labs: Laboratory Results - last 24 hr 02/27/25 02/28/25 07:36 04:47 NT-Pro-B Natriuret Pep 129 H Procalcitonin 0.1
[2025-02-28] MEDS: CLOTRIMAZOLE 10 MG TROC MUCOUS MEM (09:50)
[2025-02-28] MEDS: FUROSEMIDE INJ 40 MG/4 ML VIAL IV PUSH (09:53)
[2025-02-28] MEDS: polyethylene glycoL 3350 17 GM POWD.PACK PO (09:54)
[2025-02-28] MEDS: guaiFENesin 12 HR 600 MG TABCR 1200 MG PO (10:10)
[2025-02-28] MEDS: MORPHINE SULFATE (*CRX) 30 MG TABCR PO (10:10)
[2025-02-28] MEDS: ZIPRASIDONE HCL 80 MG CAPSULE PO (10:10)
[2025-02-28] MEDS: lamoTRIgine 100 MG TABLET PO (10:11)
[2025-02-28] MEDS: LOSARTAN POTASSIUM 50 MG TABLET PO (10:11)
[2025-02-28] MEDS: DOXYCYCLINE HYCLATE 100 MG TABLET PO (10:11)
[2025-02-28] MEDS: APIXABAN 5 MG TABLET PO (10:11)
[2025-02-28] MEDS: busPIRone HCL 2.5 MG, busPIRone HCL 5 MG 7.5 MG PO (10:11)
[2025-02-28] MEDS: hydrOXYzine pamoate 25 MG CAPSULE PO (10:11)
[2025-02-28] MEDS: ATORVASTATIN 40 MG TABLET PO (10:11)
[2025-02-28] MEDS: amLODIPine BESYLATE 10 MG TABLET PO (10:12)
[2025-02-28] MEDS: PANTOPRAZOLE 40 MG TABLET PO (10:12)
[2025-02-28] MEDS: carvediloL 12.5 MG TABLET PO (10:12)
[2025-02-28] MEDS: ASPIRIN 81 MG ENTERIC TABLET PO (10:12)
[2025-02-28] MEDS: predniSONE 20 MG TABLET 40 MG PO (10:13)
--- NOTE | 2025-02-28 11:26 | P.DS_ITS ---
DS: Admitting Diagnosis Discharge Date 02/28/25 Admitting Diagnosis Shortness breath DS: Discharge Diagnosis Discharge Diagnosis (1) Pneumonia: Code(s): J18.9 - Pneumonia, unspecified organism Status: Acute DS: Summary Hospital Course Hospital Course: 63-year-old male past medical history of COPD non-small cell lung cancer, hypertension, cardiomyopathy, combined heart failure, EF 40-45%, grade 1 diastolic dysfunction on echocardiogram May 30, 2024, present ED with a chief complaint of productive cough and shortness breath. Patient has been having productive cough in possible days, and patient develops dyspnea gradually. Patient has worsening shortness breath yesterday, therefore patient came to ED for evaluation treatment. Patient denies headache, focal weakness, abdomen pain, nausea vomiting diarrhea dysuria Upon arrival to ED, patient was afebrile, blood pressure stable, but patient had a tachycardia tachypnea and hypoxemia, patient was placed on 4 L oxygen in the ED to keep pulse ox above 95, patient did need O2 home therapy Chest x-ray showed worsening bilateral airspace disease, possible mild pulmonary edema and pneumonia Lab showed anemia hemoglobin 11.9 on baseline, Lab showed hyponatremia 135 on the baseline, BNP 482 above baseline, respiratory pathogen PCR negative Patient was managed for Pneumonia and acute hypoxemic respiratory failure, Initially required 4 liters of oxygen but now needing oxygen on activities per home O2 eval. Completed 3 days of Cefepime and Doxycycline, discharged on 7 more days of Doxycycline and Cefdinir. Pulmonology ws involved and patient was also managed for COPD exacerbation, placed on Prednisone and discharged on one more day of prednisone 40mg, Spiriva and continue home Symbicort. No Pulm edema on CXR and patient not discharged on Lasix, will conitneu follow up with primary cardiolgoy WIll also continue follow up with primary oncology for lung ca. Immunoglobulins levels were otained but results still pending, he will follow up woth PCP who will follow up on the results F/u with PCP in 3-5 days F/u with Pulm as instructed adn continue follow up with primary cardiology. Time Spent with Patient Time attestation: Total time spent providing and/or coordinating discharge services: DS: Data Data Completed and Pending Labs on day of discharge: Labs from last 24 hours 02/28/25 02/28/25 02/27/25 04:47 04:46 07:36 NT-Pro-B Natriuret Pep 129 H Procalcitonin 0.1 Immunoglobulin A Pending Immunoglobulin G Pending Immunoglobulin M Pending Discharge Plan Discharge Attending physician on discharge: Ramona Mora Consulting providers: Flynn Rosenthal Discharging Clinician: Ramona Mora Anticipated Discharge Date/Time: 02/28/25 11:00 Patient Disposition: Home Activity: as tolerated Diet: as tolerated and heart healthy Patient Instructions: Antibiotic Form, Apixaban (By mouth) Patient Language: Italian Stand Alone Forms: General Discharge Information Follow-up/Referrals: Flynn Rosenthal MD [Physician] - (F/u with Cardiology as instructed ) Matthew Mccabe MD [Primary Care Provider] - (F/u with PCP in 3-5 days ) Discharge Medications: New prednisone 20 mg Tablet 40 mg PO DAILY@0800 1 Days Qty: 2 0RF cefdinir 300 mg capsule 300 mg PO Q12H 7 Days Qty: 14 0RF doxycycline hyclate 100 mg tablet 100 mg PO BID 7 Days Qty: 14 0RF tiotropium bromide [Spiriva with HandiHaler] 18 mcg capsule, w/inhalation device 1 cap inhalation DAILY 30 Days Qty: 30 2RF Rx Instructions: puncture 1 cap using device; one dose = 2 inhalations Continued omeprazole 40 mg capsule,delayed release(DR/EC) 40 mg PO DAILY Qty: 90 3RF clotrimazole 10 mg humberto 10 mg mucous membrane TID Qty: 30 0RF alfuzosin 10 mg tablet extended release 24 hr 10 mg PO DAILY Rx Instructions: administer after the same meal each day ziprasidone HCl 80 mg capsule 80 mg PO BID Rx Instructions: give with food (meal/snack) carvedilol 12.5 mg tablet 12.5 mg PO Q12H Rx Instructions: must administer with a meal/food buspirone 7.5 mg tablet 10 mg PO BID aspirin [Adult Aspirin Regimen] 81 mg tablet,delayed release (DR/EC) 81 mg PO DAILY atorvastatin 40 mg tablet 40 mg PO DAILY lamotrigine 100 mg tablet 100 mg PO DAILY hydroxyzine pamoate 100 mg capsule 25 mg PO Q12H Eliquis 5 mg tablet 5 mg PO BID Qty: 60 5RF latanoprost 0.005 % Drops 1 drp OPHTHALMIC (EYE) DAILY ondansetron HCl 8 mg tablet 8 mg PO BID PRN (Reason: Nausea And Vomiting) morphine 30 mg tablet extended release 30 mg PO Q12H PRN (Reason: pain) acetaminophen 500 mg Tablet 500 mg PO Q6H PRN (Reason: Pain (Scale Score 1-3)) oxycodone 5 mg tablet 10 mg PO Q4H PRN (Reason: Pain (Scale Score 7-10)) budesonide-formoterol [Symbicort] 160-4.5 mcg/actuation HFA aerosol inhaler See Rx Instructions .ROUTE .COMPLEX Qty: 10.2 5RF Dose Instruction: INHALE 2 PUFFS BY MOUTH TWICE A DAY Rx Instructions: INHALE 2 PUFFS BY MOUTH TWICE A DAY. RINSE AND SPIT losartan 50 mg tablet See Rx Instructions .ROUTE .COMPLEX Qty: 30 5RF Dose Instruction: TAKE 1 TABLET BY MOUTH EVERY DAY Rx Instructions: TAKE 1 TABLET BY MOUTH EVERY DAY albuterol sulfate 90 mcg/actuation HFA aerosol inhaler See Rx Instructions .ROUTE .COMPLEX Qty: 8.5 3RF Dose Instruction: INHALE 1-2 PUFF(S) BY MOUTH EVERY 4 - 6 HOURS NEEDED FOR SHORTNESS OF BREATH OR WHEEZING Rx Instructions: INHALE 1-2 PUFF(S) BY MOUTH EVERY 4 - 6 HOURS NEEDED FOR SHORTNESS OF BREATH OR WHEEZING ipratropium-albuterol 0.5 mg-3 mg(2.5 mg base)/3 mL solution for nebulization See Rx Instructions .ROUTE .COMPLEX Qty: 360 3RF Dose Instruction: INHALE 3 ML VIA NEBULIZER FOUR TIMES DAILY NEEDED FOR SHORTNESS OF BREATH OR WHEEZING Rx Instructions: INHALE 3 ML VIA NEBULIZER FOUR TIMES DAILY NEEDED FOR SHORTNESS OF BREATH OR WHEEZING Discontinued prednisone 20 mg tablet 40 mg PO DAILY 5 Days Qty: 10 0RF Date of admission: 02/26/25 09:11 Primary Care Provider: Matthew Mccabe Admitting Provider: Laurence Varela Attending physician on admission: Laurence Varela Condition: Stable
--- NOTE | 2025-02-28 11:33 | HOMEO2EVAL ---
Evaluation was performed at [facility] Home Oxygen Evaluation RC: Home Oxygen (O2) Evaluation Start: 02/28/25 09:48 Freq: ONCE Status: Active Protocol: RPE Activity Type Activity Date Activity User E-sign Co-sign Detail Recorded Client Recorded Date Recorded By Document 02/28/25 10:50 DJO [email or web address] 02/28/25 11:33 DJO Document 02/28/25 10:55 [email or web address] [email or web address] 02/28/25 11:33 DJO Document 02/28/25 11:05 [email or web address] [email or web address] 02/28/25 11:33 DJO Document 02/28/25 11:10 [email or web address] [email or web address] 02/28/25 11:33 DJO Document 02/28/25 11:25 [email or web address] [email or web address] 02/28/25 11:33 DJO 02/28/25 02/28/25 02/28/25 10:50 10:55 11:05 Home O2 Evaluation [Oxygen] -Test Phase Resting Exercise Exercise -Oxygen Delivery Room Air Room Air Nasal Cannula -Oxygen Flow Rate (L/min) 1 [Pulse Oximetry] -Pulse Oximetry (90-100 %) 93 87 L 88 L [Pulse Rate] -Pulse Rate (60-100 beats/min) 92 120 H 122 H [Evaluation] -Activity Tolerance [Exercise] -Ambulation Distance (feet) -Ambulation Distance (meters) [Charges] -Evaluation Charges O2 Evaluation by Pulmonary 02/28/25 02/28/25 11:10 11:25 Home O2 Evaluation [Oxygen] -Test Phase Exercise Resting -Oxygen Delivery Nasal Cannula Room Air -Oxygen Flow Rate (L/min) 2 [Pulse Oximetry] -Pulse Oximetry (90-100 %) 91 92 [Pulse Rate] -Pulse Rate (60-100 beats/min) 121 H 95 [Evaluation] -Activity Tolerance Good [Exercise] -Ambulation Distance (feet) 200 -Ambulation Distance (meters) 60.95 [Charges] -Evaluation Charges
--- NOTE | 2025-02-28 11:54 | PCRCNOTE ---
HOME O2 EVAL COMPLETE, 2L WITH ACTIVITY. SET UP WITH [facility]. PHONE NUMBER [phone]. TANK IN ROOM FOR DISCHARGE
[2025-03-02 02:37] LABS: Immunoglobulin A 420 mg/dL (70-320); Immunoglobulin G 828 mg/dL (600-1540); Immunoglobulin M 87 mg/dL (50-300)
[2025-03-04 02:48] LABS: Adenovirus DNA Not Detected (Not Detected); Chlamydophila pneumoniae Not Detected (Not Detected); Coronavirus 229E Not Detected (Not Detected); Coronavirus HKU1 Not Detected (Not Detected); Coronavirus NL63 Not Detected (Not Detected); Coronavirus OC43 Not Detected (Not Detected); Human Metapneumovirus Detected (Not Detected); Human Parainfluenza Virus 1 Not Detected (Not Detected); Human Parainfluenza Virus 2 Not Detected (Not Detected); Human Parainfluenza Virus 3 Not Detected (Not Detected); Human Parainfluenza Virus 4 Not Detected (Not Detected); Human RSV B Not Detected (Not Detected); Influenza A Not Detected (Not Detected); Influenza B Not Detected (Not Detected); Mycoplasma pneumoniae Not Detected (Not Detected); Rhinovirus/Enterovirus Not Detected (Not Detected)
== END 2025-02-28 13:50 | disposition home or self-care (01) | DRG 139 ==
LOC: ANHED 09:46 → ANH2MED 10:28
PROVIDERS: General Practice; Internal Medicine Pulmonary Disease; Student in an Organized Health Care Education/Training Program; Admitting Provider Hospitalist; Emergency Provider Emergency Medicine; PCP Family Medicine Adolescent Medicine; Visit Provider Internal Medicine
DX: J18.9 Pneumonia, unspecified organism (principal); J44.89 Other specified chronic obstructive pulmonary disease; J44.1 Chronic obstructive pulmonary disease with (acute) exacerbation; J44.0 Chronic obstructive pulmonary disease with (acute) lower respiratory infection; B97.81 Human metapneumovirus as the cause of diseases classified elsewhere; I11.0 Hypertensive heart disease with heart failure; I50.43 Acute on chronic combined systolic (congestive) and diastolic (congestive) heart failure; D61.810 Antineoplastic chemotherapy induced pancytopenia; T45.1X5A Adverse effect of antineoplastic and immunosuppressive drugs, initial encounter; C34.90 Malignant neoplasm of unspecified part of unspecified bronchus or lung; E87.1 Hypo-osmolality and hyponatremia; J96.01 Acute respiratory failure with hypoxia; I48.0 Paroxysmal atrial fibrillation; H40.9 Unspecified glaucoma; Z20.822 Contact with and (suspected) exposure to COVID-19; M19.90 Unspecified osteoarthritis, unspecified site; I42.9 Cardiomyopathy, unspecified; G47.33 Obstructive sleep apnea (adult) (pediatric); K21.9 Gastro-esophageal reflux disease without esophagitis; Z96.651 Presence of right artificial knee joint; F17.210 Nicotine dependence, cigarettes, uncomplicated
CPT/HCPCS: 36415; 36600; 71045; 71046; 80053; 82784; 82805; 83880; 84145; 85018; 85025; 85027; 87633; 87637; 87641; 93005; 94618; 94640; 94667; 94762; 96365; 96366; 96367; 96368; 96375; 97161; 99285; A9270; G0378; G0379; J0360; J0456; J0692; J1938; J2919; J7512

== ENCOUNTER 2025-03-13 08:29 | Outpatient (CLI) | payer OTHER, SELFPAY ==
--- OUTSIDE RECORDS SUMMARY | 2025-03-13 08:33 | XMS_ITS | Encounter Summary ---
Author Organization [facility] Address [address] [place] [address] Care Team Providers Care Catering Service Manager Name Role Phone Monica Tellez SUPPLY CHAIN LOGISTICS MANAGER-CARTRIDGE LOADER Primary Care Provi cristobal Ian Pollock MD Primary Care Provider [phone] Ian Pollock MD Primary Care Provider [phone] Ian Pollock MD Primary Care Provider [phone] Ian Pollock MD Primary Care Provider [phone] Ian Pollock MD Primary Care Provider [phone] Katina Casiano DO Unavailable Xavi ACOSTA MD, Fred R Primary Care Provider + Katina Casiano DO Unavailable [phone] Tracey Ang Unavailable [phone] Belkis Angel SUPPLY CHAIN LOGISTICS MANAGER-CARTRIDGE LOADER Primary Care Provider + Natalie Baum Primary Care Provider [phone] Reason for Visit * Reason Onset Date Comments Forms/questionnaires 07/12/2019 [facility] Encounter Details Date Type Department Care Team (Late st Contact Info) Description 07/12/2019 Telephone [facility] General Internal Medicine [address] [address] Monica Tellez, SUPPLY CHAIN LOGISTICS MANAGER-CARTRIDGE LOADER [address] [place] [address] Forms/questionnaires ([place]-medicare transportation) Social History Tobacco Use Types Packs/Day [...] on file 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 Please advise. [phone] * Telephone Encounter - Shari Silvestre RN - 07/12/2019 1:11 PM CDT [facility] transportation form on your shelf. * Telephone Encounter - Hawa Allen - 07/12/2019 9:34 AM CDT Pt calling in to inform office that paperwork is on it's way from [place] concerning Medicare rides so pt can get transportation to and from [facility] appts. CB# [phone] Routed to [facility] Nurse Communication for further review documented in this encounter Plan of Treatment Not on file documented as of this encounter Visit Diagnoses Not on filedocumented in this encounter Care Teams Catering Service Manager Relationship Specialty Start Date End Date Monica Tellez, SUPPLY CHAIN LOGISTICS MANAGER-CARTRIDGE LOADER PCP - General 07/03/19 11/13/19 Ian Pollock MD PCP - General 11/14/19 12/12/19 Ian Pollock MD PCP - General 12/13/19 05/25/20 Ian Pollock MD PCP - General 05/26/20 06/15/20 Ian Pollock MD [address] [facility] OF [facility] [place] [address] PCP - General 07/31/20 08/20/20 Ian Pollock MD [address] [facility] OF [facility] [place] [address] PCP - General 08/21/20 05/29/23 Jameel Hurley III, MD [address] [place] [address] PCP - General Internal Medicine 06/05/23 08/28/23 Belkis Angel, SUPPLY CHAIN LOGISTICS MANAGER-CARTRIDGE LOADER [address] [place] [id number] PCP - General Nurse Practitioner 08/29/23 05/05/24 Natalie Baum [address] [place] [address] PCP - General 05/06/24 Katina Casiano DO [address] DIV OF [place] INTERNAL MEDICINE [place], [place] Resident - PCP Internal Medicine 08/10/22 05/29/23 Katina Casiano DO [address] [facility] INTERNAL MEDICINE [place] Hospitalist 06/05/23 Tracey Ang PA [address] [facility] [address] [place] [address] Physician Solar Sales Representative 08/15/23 documented as of this encounter
--- OUTSIDE RECORDS SUMMARY | 2025-03-13 08:33 | XMS_ITS | Encounter Summary ---
Author Organization [facility] Address [address] [place] [address] Care Team Providers Care Transfer Knitter Name Role Phone Ian Pollock MD Primary Care Provider Katina Casiano DO Unavailable [phone] Xavi ACOSTA MD, Jameel Gaviria Primary Care Provider + Katina Casiano DO Unavailable [phone] Tracey Ang PA Unavailable [phone] Belkis Angel BEAM SEALER-CISCO UNIFIED COMMUNICATIONS ENGINEER Primary Care Provider + Natalie Baum Primary Care Provider [phone] Encounter Details Date Type Department Care Team (Late st Contact Info) Description 04/22/2021 Telephone [facility] [address] [place] [address] Kezia Hollis MD [address] OF PULMONARY/[place] [address] Social History Tobacco Use Types Packs/Day Years Used Date Smoking Tobacco: Every Day Cigarettes 1 30 Smokeless Tobacco: Never Alcohol Use Standard Drinks/Week Comments Yes 6 (1 standard drink = 0.6 oz pure alcohol) beer madi. 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 Hollis? Call Back #: [phone] documented in this encounter Plan of Treatment [...] on filedocumented in this encounter Care Teams Transfer Knitter Relationship Specialty Start Date End Date Ian Pollock MD [address] OF [facility] [place] [address] PCP - General 08/21/20 05/29/23 Jameel Hurley III, MD [address] OF [facility] [address] PCP - General Internal Medicine 06/05/23 08/28/23 Belkis Angel APRN-CISCO UNIFIED COMMUNICATIONS ENGINEER [address] [place] [address] [address] [place] [phone] PCP - General Nurse Practitioner 08/29/23 05/05/24 Natalie Baum [address] [place] [address] PCP - General 05/06/24 Katina Casiano DO [address] [facility] OF [facility] INTERNAL [place], [place] Resident - PCP Internal Medicine 08/10/22 05/29/23 Katina Casiano DO [address] [facility] [address] [facility] OF [facility] INTERNAL [place], [place] Hospitalist 06/05/23 Tracey Ang PA [address] [facility] [address] [place] [address] Physician X Ray Tech 08/15/23 documented as of this encounter
--- OUTSIDE RECORDS SUMMARY | 2025-03-13 08:33 | XMS_ITS | Encounter Summary ---
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 Gender Identity Not on file Sexual Orientation Not on file documented as of this encounter Plan of Treatment Not on file documented as of this encounter Visit Diagnoses Not on filedocumented in this encounter Additional Health Concerns Infection Onset Date Last Indicated Resolved Time COVID: Suspected 08/29/2024 08/29/2024 08/29/2024 1:59 PM CDT documented as of this encounter Care Teams Farm Management Supervisor Relationship Specialty Start Date End Date Matthew Mccabe MD [address] [place] [address] PCP - General Family Medicine 05/13/24 Stan Meza MD [address] [facility] IM MEDICAL ONCOLOGY, [address], [address], [address] [place] [address] Medical Oncologist/Material Spreader Medical Oncology 06/28/24 documented as of this encounter
--- OUTSIDE RECORDS SUMMARY | 2025-03-13 08:33 | XMS_ITS | Encounter Summary ---
Author Organization [facility] Address [address] [facility] [place] [address] Care Team Providers Care Sound Assistant Name Role Phone Ian Pollock MD Primary Care Provider [phone] Katina Casiano DO Unavailable [phone] Xavi ACOSTA MD, Jameel R Primary Care Provider + Katina Casiano DO Unavailable [phone] Tracey Ang PA Unavailable [phone] Belkis Angel CREW LEAD-NEWSPAPER CLIPPER Primary Care Provider + Natalie Baum Primary Care Provider [phone] Reason for Visit * Reason Onset Date Comments Refill Request 04/13/2021 Encounter Details Date Type Department Care Team (Late st Contact Info) Description 04/13/2021 Telephone [facility] [address] [place] [address] Ian Pollock MD [address] [place] [address] Refill Request Social History Tobacco [...] on file 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 Patient Call Back number: [phone] documented in this encounter Plan of Treatment [...] sciatica documented in this encounter Care Teams Sound Assistant Relationship Specialty Start Date End Date Ian Pollock MD [address] OF [facility] [place] [address] PCP - General 08/21/20 05/29/23 Jameel Hurley III, MD [address] [facility] [place] [phone] PCP - General Internal Medicine 06/05/23 08/28/23 Belkis Angel, CREW LEAD-NEWSPAPER CLIPPER [address] [place] [address] [address] [place] [address] PCP - General Nurse Practitioner 08/29/23 05/05/24 Natalie Baum [address] [place] [address] PCP - General 05/06/24 Katina Casiano DO [address] [facility] INTERNAL MEDICINE [place], [place] Resident - PCP Internal Medicine 08/10/22 05/29/23 Katina Casiano DO [address] [facility] [address] [facility] INTERNAL MEDICINE [place], [place] Hospitalist 06/05/23 Tracey Ang PA [address] [facility] [address] [place] [address] Physician Case Folder 08/15/23 documented as of this encounter
--- OUTSIDE RECORDS SUMMARY | 2025-03-13 08:33 | XMS_ITS | Encounter Summary ---
Author Organization [facility] Address [address] [place] [address] Care Team Providers Care Rail Bonder Name Role Phone Ian Pollock MD Primary Care Provider Katina Casiano DO Unavailable [phone] Xavi ACOSTA MD, Jameel Gaviria Primary Care Provider + Katina Casiano DO Unavailable [phone] Tracey Ang PA Unavailable [phone] Belkis Angel SURFACE SHIP USW SUPERVISOR-STUDIO DATA ANALYST Primary Care Provider + Natalie Baum Primary Care Provider [phone] Reason for Visit * Reason Onset Date Comments Letter 12/02/2020 Encounter Details Date Type Department Care Team (Late st Contact Info) Description 12/02/2020 Telephone [facility] Pulmonary, Critical Care and Sleep Medicine [address] [place] [address] Agnieszka Haas MD [address] [place] [address] Letter Social History Tobacco Use Types Packs/Day Years Used Date Smoking Tobacco: Every Day Cigarettes 1 30 Smokeless Tobacco: Never Alcohol Use Standard Drinks/Week Comments Yes 6 (1 standard drink = 0.6 oz pure alcohol) beer madi. 25 oz 3 times a week Sex and Gender Information Value Date Recorded Sex Assigned at Not on file 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 SOLUTION SPECIALIST Gender Identity Not on file Sexual Orientation Not on file Occupation Industry Job Start Date Job End Date disability Not on file Not on file Not on file COVID-19 Exposure Response Date Recorded In the last month, have you been in contact with someone who was confirmed or suspected to have Coronavirus / COVID-19? Unable to assess 11/18/2020 1:41 PM SOLUTION SPECIALIST documented as of this encounter Functional Status * Is person deaf or have serious hearing difficulty? Answer Date of Assessment Author No 11/05/2015 3:52 AM Columba Leavitt RN * Is person blind or have serious difficulty seeing? Answer Date of Assessment Author No 11/05/2015 3:52 AM Columba eLavitt RN * Does person have serious difficulty [...] vaccine sooner Thanks. Patient Call Back number: [phone] TION SPECIALIST documented in this encounter Plan of [...] on filedocumented in this encounter Care Teams Rail Bonder Relationship Specialty Start Date End Date Ian Pollock MD [address] OF [facility] [place] [address] PCP - General 08/21/20 05/29/23 Jameel Hurley III, MD [address] OF [facility] [place] [address] PCP - General Internal Medicine 06/05/23 08/28/23 Belkis Angel, SURFACE SHIP USW SUPERVISOR-STUDIO DATA ANALYST [address] [facility] [address] [place] [phone] PCP - General Nurse Practitioner 08/29/23 05/05/24 Natalie Baum [address] [place] [address] PCP - General 05/06/24 Katina Casiano DO [address] [facility] OF [facility] INTERNAL [place], [place] Resident - PCP Internal Medicine 08/10/22 05/29/23 Katina Casiano DO [address] [facility] OF [facility] INTERNAL MEDICINE [place], [place] Hospitalist 06/05/23 Tracey Ang PA [address] [place] [address] Physician Cruise Director 08/15/23 documented as of this encounter
--- OUTSIDE RECORDS SUMMARY | 2025-03-13 08:34 | XMS_ITS | Clinical Summary ---
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 Follow Up: 4 Weeks (Reason: medication f/u) * * Sign off status: Completed true * Provider: Mickie Joseph, MSN, FITNESS ATTENDANT, PMHNP- Date: 03/12/2025 Generated for Printing/Faxing/eTransmitting on: 0 03/13/2025 08:33 AM CDT History and Physical Notes * HPI (History of Present Illness) Category Sub-Category Detail Notes Category Not es Depression Screening PHQ-9 Little inte rest or pleasure in doing things: Several days Feeling down, depressed, or hopeless: Se veral days Trouble falling or staying asleep, or sl eeping too much: Not at all Feeling tired or having little energy: N early every day Poor appetite or overeating: Nearly ever y day Feeling bad about yourself o r that [...] some way: Not at all Total Score: 8 Interpretation: Mild Depression Intervention Depression Screening Findings: N egative Suicide Risk Assessment Performed: 03/12 Summary Current Mental Health Status / Response to Medications, side effects, efficacy Josafat is a 64 y/o M last seen on 01/16/25. No medication changes were made. How do you feel your current medications are working for your mental health? -Patient reports medications are working well for mood. Has stopped chemotherapy, cancer is in remission but still follows up with is oncologist every 2 weeks. Reports low energy. Recommended starting a daily multivitamin. Do you take regularly as prescribed or miss days? Weekend breaks w/ stimulant? -Takes as prescribed Any side effects from medicine? -Mirtazapine caused RLS, patient stopped taking it and it went away AIMS score (if applicable): body areas: 0=none, 1=minimal, 2=mild, 3=moderate, 4=severe -Face/Oral: 0 -Extremities (arms/legs): 0 -Trunk (neck/shoulder/hips): 0 Changes to physical health, doctor visit, ER, abnormal labs, new medical condition, new medication since last visit? -patient states he gets lab work done before every chemotherapy session and everything has been fine, denying labs through [facility] or [facility]. -patient was in the hospital again for pneumonia, he is now on oxygen. Denies new medications. Are you seeing a therapist? -Courtney at [facility] Sleep: Average hours of sleep per night: -8 Difficulties falling asleep or staying asleep? -denies Sleeping too much/not needing usual amount of sleep? -denies Appetite/Weight: -poor -180 lbs Energy level? Normal? Tired often throughout day: -Low Focus: -normal Motivation: -low Physical activity: -Denies Substance use: -Denies Patient rates anxiety as a (0-10): -moderate -moderate at last visit Panic Attacks: -denies Paranoia: -denies AH/VH: -denies Patient rates depression as a (0-10): -moderate -moderate at last visit Suicidal thoughts/plan or homicidal [...] MENTAL STATUS None LANGUAGE Appropriate- WNL AIMS DEPRESSIVE SYMPTOMS Moderate ELEVATED MOOD SYMPTOMS Denies, Not noted /observed ANXIETY Moderate "
--- OUTSIDE RECORDS SUMMARY | 2025-03-13 08:34 | XMS_ITS | Encounter Summary ---
Author Organization [facility] Address [address] [place] [address] Care Team Providers Care Manager Placement Name Role Phone Ian Pollock MD Primary Care Provider [phone] Ian Pollock MD Primary Care Provider [phone] Ian Pollock MD Primary Care Provider [phone] Ian Pollock MD Primary Care Provider [phone] Ian Pollock MD Primary Care Provider [phone] Katina Casiano DO Unavailable [phone] Xavi ACOSTA MD, Jameel R Primary Care Provider + Katina Casiano DO Unavailable [phone] Tracey Ang PA Unavailable [phone] Belkis Angel INCOME TAX INVESTIGATOR-SHOE LASTER Primary Care Provider + Natalie Baum Primary Care Provider [phone] Reason for Visit * Reason Onset Date Comments General 12/02/2019 Encounter Details Date Type Department Care Team (Late st Contact Info) Description 12/02/2019 Telephone [facility] General Internal Medicine [address] [place] [address] Ian Pollock MD [address] DIV OF [place] [address] General Social History Tobacco Use Types Packs/Day [...] on file 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 CB# [phone] Routed to provider for further review NCE EXECUTIVE documented in this encounter Plan of [...] filedocumented in this encounter Care Teams Manager Placement Relationship Specialty Start Date End Date Ian Pollock MD PCP - General 11/14/19 12/12/19 Ian Pollock MD PCP - General 12/13/19 05/25/20 Ian Pollock MD PCP - General 05/26/20 06/15/20 Ian Pollock MD [address] DIV OF [facility] [place] [address] PCP - General 07/31/20 08/20/20 Ian Pollock MD [address] DIV OF [facility] [place] [address] PCP - General 08/21/20 05/29/23 Jameel Hurley III, MD [address] DIV OF [facility] [place] [address] PCP - General Internal Medicine 06/05/23 08/28/23 Belkis Angel, INCOME TAX INVESTIGATOR-SHOE LASTER [address] [facility] [address] [place] [address] PCP - General Nurse Practitioner 08/29/23 05/05/24 Natalie Baum [address] [place] [address] PCP - General 05/06/24 Katina Casiano DO [address] [facility] [address] DIV OF GEN INTERNAL MEDICINE [place], [place] Resident - PCP Internal Medicine 08/10/22 05/29/23 Katina Casiano DO [address] [facility] [address] DIV OF GEN INTERNAL MEDICINE [place], [place] Hospitalist 06/05/23 Tracey Ang PA [address] [facility] [address] [place] [address] Physician Specialties Operator 08/15/23 documented as of this encounter
--- OUTSIDE RECORDS SUMMARY | 2025-03-13 08:34 | XMS_ITS | Data Portability ---
Author Organization [place] [facility] [employer], Main Office Address [address] [place] [address] Assessment Encounter Date Assessment Date Assessment LastModified by Organization Details LastModified Time 02/06/2025 02/06/2025 This note is dictated and transcribed by [email or web address]. Gun Welder variances may occur. Despite proofreading, typographical errors may occur. Occasional wrong-word or '[id number]-a-[id number]' substitutions may have occurred due to the inherent limitations of voice recording. Read the chart carefully and recognize, using context, where substitutions have occurred. [email or web address] Not available 02/06/2025 09:27:31 Plan of Treatment Reminders Order Date Submit Date Provider Last Modified By Organization Details Last Modified Time Details Appointments Procedure 15 2024 01:30P M David Nguyen DPM Not available Not available Not available Lab None recorded. Referral None recorded. Procedures None recorded. Surgeries None recorded. Imaging US, duplex, arterial, lower extremity 2024 025 [facility] (Radiology), [address] [place], [address], 02/25/2025 15:25:48 Medication Orders None recorded. Patient TargetsNo targets recorded. Patient Instructions Encounter Date Encounter Id Patient Instructions Last Modified By Organization Details Last Modified Time 02/06/2025 [id number] (LYNNETTE) ankle brachial index* - both sides lower legs [email or web address] Not available 02/25/2025 15:26:58 Reason for Referral None Reported. Results Created Date Observation Date Name Description Value Unit Range Abnormal Flag Note LastModifiedBy Organization Detail LastModifiedTime 02/26/2002/24/2025 US, duple x, arter ial, lower extre mity No observ ation record ed. [email or web address] [facility] (Radiology) [address] [place], [address], 02/25/2025 18:10:38 Result Notes None recorded. Problems Name Problem SNOMED Code Status Onset Date Resolution Date Notes Provider Name and Address Organization Details Recorded Time Bilateral ingrowing nail of toe of feet 3464576056220 9102 Active 2024 David Nguyen DPM [address] [address], [place], [address], [employer] 09:27:38 Peripheral arterial occlusive disease 086063495 Active 2024 David Nguyen DPM [address] [address], [place], [address], [employer] 09:28:05 Pain in toe 204504210 Active 2024 David Nguyen DPM [address] [address], [place], [address], [employer] 09:28:35 Cigarette smoker 34258608 Active 2024 David Nguyen DPM [address] [address], [place], [address], [employer] 09:29:18 Problem Notes None recorded. Procedures Surgical History Date Name Laterality Status Provider Name and Address Organization Details Recorded Time Hand completed Kelsey Gay [employer] 02/06/2025 09:38:07 Knee Surgery completed Kelsey Gay [employer] 02/06/2025 09:38:15 Imaging Results Imaging Date Name Status LastModified by Organiz ation Details LastModified Time 02/24/2025 US, duplex, arterial, lower extremity completed [address] (Radiology) [address] [place], [address], 02/25/2025 18:10:38 Procedure Notes None recorded. Medical Equipment None [...] 10 mg humberto USE 10 MG (1 HUMBERTO) BY MOUTH TO AFFECTED MUCOSAL AREA THREE [...] patch APPLY 1 PATCH TRANSDERMAL LY DAILY FOR 28 DAYS active Not Available Not Available Not Available ipratropium 0.5 mg-albuterol 3 mg (2.5 [...] N ot Available prednisone 20 mg tablet PLEASE SEE ATTACHED FOR DETAILED [...] Not Available Not Available No t Available doxycycline hyclate 100 mg tablet TAKE [...] TAKE 1 CAPSULE BY MOUTH THREE TIMES A DAY active Not Available Not Available Not Available azithromycin 500 mg tablet TAKE 1 [...] Not Available Not Available No t Available tiotropium bromide 18 mcg capsule with inhalation device USE 1 CAP AND INHALE DAILY FOR 30 DAYS (PUNCTURE 1 CAP USING DEVICE ONE DOSE = 2 INHALATIONS ) active Not Available Not Available No t [...] and Address Organization Details Last Updated DateTime 79 /min 14 /min 98 % 98 % 175.26 cm 28.8 kg/m2 76251.5 1 g 148 mm[Hg] 95 mm[Hg] Kelsey Gay [facility] [employer] 09:12:43 Social History Question Answer Notes LastModified by [employer] Details LastModified Time Tobacco Smoking Status Current Every Day Smoker Kelsey moran [employer] 02/06/2025 09:37:54 What Is Your Level Of Caffeine Consumption? Occasional Information not available 02/06/2025 What Was The Date Of Your Most Recent Tobacco Screening? 02/06/2025 Information not available 02/06/2025 Has Tobacco Cessation Counseling Been Provided? No Information not available 02/06/2025 Sex: Unknown Functional Status Question Answer Note LastModified by [email or web address] Details LastModified Time Do you use any illicit or recreational drugs? No Information not available 02/06/2025 Do you or have you ever used any other forms of tobacco or nicotine? No Information not available 02/06/2025 What is your level of alcohol consumption? None Information not available 02/06/2025 Mental Status None recorded. Family History Relationship [...] 09:37:34 Medical History Condition Response ARTHRITIS Y HEART DISEASE/HEART PROBLEMS Y ALLERGIES/HAYFEVER Y LUNG DISEASE/DISORDER Y HEARTBURN / REFLUX Y RADIATION / CHEMOTHERAPY Y CANCER: SPECIFY Y ANXIETY DISORDER Y BLOOD CLOTS Y CAROTID BLOCKAGE Y PULMONARY DISEASE Y BOWEL PROBLEMS Y BACK / NECK PROBLEMS Y Past Encounters Encounter ID Performer Location Encounter Start Date Encounter Closed Date Diagnosis/Indication Diagnosis SNOMED-CT Code Diagnosis ICD10 Code Diagnosis Note [id number] David Nguyen DPM [facility] [place] [address] [facility] [address] [place] [address] 02/06/2025 08:59:45 02/10/2025 12:54:52 Pain in toe 267143449 M79.674 M79.675 bilateral great toes Bilateral ingrowing nail of toe of feet 8922019792 7118891 L60.0 medial border both great toenailspl an February 25 partial chemical matrixecto my medial border both great toes- pending arterial studiesedu cated on treatment optionswil l obtain vascular studies to ensure adequate healing secondary to lower extremity peripheral arterial disease Peripheral arterial occlusive disease 734461524 I73.9 obtain noninvasiv e vascular studies to ensure adequate healing for upcoming in office procedures shawn has difficulty walking and has intermitte nt claudicati on symptomsde nies any open wounds Cigarette smoker 4814368 7 F17.210 4-5 dailyhas COPD and lung [...] Holden Member ID Guarantor Name 02/06/2025 1 [facility] - DOS ON OR AFTER 2020 - DUAL ELIGIBLE (MEDICARE REPLACEMENT/ ADVANTAGE - HMO) Josafat Branch Umesh [id number] Josafat F Umesh Notes Date Note Type Note Provider Name [...] any other complaints. David Nguyen DPM [address] [facility] [facility] [address], [place], [address], [facility] 02/06/2025 10:00:48
--- OUTSIDE RECORDS SUMMARY | 2025-03-13 08:34 | XMS_ITS | Patient Health Record ---
Author Organization [facility] Address [address] [place] [address] Care Team Providers Care Psychotherapist Name Role Phone Radha Joseph Primary Care Provider [phone] Angelika Aponte Unavailable [phone] Lauren Ta Unavailable [phone] Meliza Beasley Unavailable Allergies Allergen (clinical drug ingredient) Drug/Non Drug Allergy documented on EMR Reaction Allergy Type Onset Date Status lisinopril Lisinopril Unknown Drug Allergy Activ e mirtazapine Mirtazapine Unknown Drug Allergy Act jeannine Penicillin Unknown Drug Allergy Active Reason For Referral No Information Medications Medication SIG (Take, Route, Frequency, Duration) Notes Start Date End Date Status Morphine Sulfate 30 MG 1 tablet as neede d Orally every 12 hours Active hydrOXYzine Pamoate 25 MG 1 capsule Oral ly three times daily for 30 days Active oxyCODONE HCl 5 [...] e a day for 30 day(s) Active busPIRone HCl 10 MG 1 tablet Orally Twice a day for 30 days Active Senna 8.6 MG 2 tablets at bedtime as needed Orally Once a day Active lamoTRIgine 100 MG TAKE 1 TABLET BY MOUTH TWICE A DAY Orally twice a day for 30 days Active Vitamin D3 50 MCG (1999 UT) TAKE 1 CAPSU LE BY MOUTH EVERY DAY FOR 30 DAYS for 30 Active Omeprazole 40 mg TAKE 1 CAPSULE BY MOUTH DAILY 30 MINUTES BEFORE BREAKFAST Orally Once a day for 30 days Active Ziprasidone HCl 80 MG TAKE 1 CAPSULE BY MOUTH WITH FOOD TWICE A DAY Orally Twice a day for 30 days Active hydroCHLOROthiazide 25 MG 1 tablet in morning Orally Once a day for 30 day(s) Active hydrOXYzine Pamoate 25 MG take 1 capsule Orally three times daily for 30 days As needed Active Alfuzosin HCl 10 MG as directed Orally Active Atorvastatin Calcium 40 MG 1 tablet Oral ly Once a day for 30 day(s) Active traMADol HCl 50 MG 1 tablet as needed Orally every 12 hours Not-Taking Social History Tobacco Use: Social History Observation [...] 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 Stress is when someone feels tense, nervous, anxious, or can\\t sleep at night because their mind is troubled Not at all In the past year have you sp ent more than 2 nights in a row in a correction, fci, correction center, or juvenile correctional facility? No Are [...] years from drugs. Has a cat named Gunner. Likes to cook and bake. Clean 3 years from drugs. Has a cat named Zach. Likes to cook and bake. Clean 3 years from drugs. Has a cat named Zach. Likes to cook and bake. Problems Problem Type SNOMED Code ICD Code Onset Dates Problem Status W/U Status Risk Notes Problem Tobacco user (705205079) Nicotine dependence, unspecified, uncomplicated (F17.200) Active confirmed Problem Insomnia (344516214) Insomnia (G47.00) Active confirmed Problem Anxiety (03722511) Anxiety (F41.9) Active confirmed Problem Bipolar affective disorder, currently depressed, moderate (138111111) Bipolar 1 disorder, depressed, moderate (F31.32) Active confirmed Problem Depressed bipolar I disorder in remission (98704847) Bipolar 1 disorder, depressed, partial remission (F31.75) Active confirmed Problem Drug monitoring done (916860467) Therapeutic drug monitoring (Z51.81) Active confirmed Problem 69462859 Bipolar I disorder, moderate, current or most [...] 04/24/2024 Encounters Encounter Location Date Provider Diagnosis [address] [place] [address] 04/24/2024 Lauren Ta Bipolar 1 disorder, depressed, partial remission F31.75 and Anxiety F41.9 [facility] [place] [address] [place] [address] 07/17/2024 Lauren Ta Nicotine dependence, unspecified, uncomplicated F17.200 ; Bipolar 1 disorder, depressed, partial remission F31.75 and Anxiety F41.9 [facility] [address] [place] [address] 08/26/2024 Radha Jake Bipolar 1 disorder, depressed, moderate F31.32 ; Insomnia G47.00 and Anxiety F41.9 [facility] [address], [place] [address] 09/24/2024 Radha Jake Insomnia G47.00 ; Bipolar 1 disorder, depressed, moderate F31.32 and Anxiety F41.9 [place] [address] [place] [address] 10/15/2024 Radha Jake Anxiety F41.9 and Bipolar 1 disorder, depressed, moderate F31.32 [facility] [address] [address] 11/11/2024 Radha Jake Insomnia G47.00 ; Bipolar 1 disorder, depressed, moderate F31.32 and Anxiety F41.[address] [address] 01/16/2025 Radha Jake Anxiety F41.9 and Bipolar 1 disorder, depressed, moderate F31.[address] [address] 03/12/2025 Radha Jake Bipolar 1 disorder, depressed, moderate F31.32 and Anxiety F41.[address] [place] [address] 04/19/2024 Angelika Aponte [address] [place] [address] 04/26/2024 Lauren Ta [facility] [address] [address] 06/13/2024 Angelika Aponte [facility] [address] [address] 06/17/2024 Lauren aT [facility] [address] [place] [address] 08/02/2024 [facility] [address] [address] 08/22/2024 Radha Jake [facility] [address] [address] 08/26/2024 Meliza Beasley [facility] [address] [address] 09/12/2024 Radha Jake Insomnia G47.00 [facility] [address] [address] 09/24/2024 Radha Jake Anxiety F41.9 and Bipolar 1 disorder, depressed, moderate F31.32 [facility] [address] [address] 10/15/2024 Radha Jake [facility] [address] [address] 11/06/2024 Radha Jake [facility] [address] [address] 11/11/2024 Radha Jake [facility] [address] [address] 11/11/2024 Radha Jake Anxiety F41.9 and Bipolar 1 disorder, depressed, moderate F31.32 [facility] [address] [address] 12/10/2024 Radha Jake [address] [address] 12/11/2024 Radha Jake [facility] [address] [address] 12/26/2024 Radha Joseph [facility] [address] [place] [address] 12/31/2024 Radha Joseph Assessments Encounter Date Diagnosis (ICD Code) Assessment Notes Treatment Notes Treatment Clinical Notes Section Notes 07/17/2024 Nicotine dependence, unspecified, uncomplicated (ICD-10 - [...] side effects or need for dosage change. 01/16/2025 Anxiety (ICD-10 - F41.9) 01/16/2025 Bipolar 1 disorder, depressed, moderate (ICD-10 - F31.32) 03/12/2025 Bipolar 1 disorder, depressed, moderate (ICD-10 - F31.32) 04/24/2024 Bipolar 1 disorder, depressed, partial remission [...] concenrs. Pt is having PET scan tomorrow 11/11/2024 Anxiety (ICD-10 - F41.9) 09/24/2024 Anxiety (ICD-10 - F41.9) 09/24/2024 Insomnia (ICD-10 - G47.00) 09/12/2024 Insomnia (ICD-10 - G47.00) 09/24/2024 Bipolar 1 disorder, depressed, moderate (ICD-10 [...] to medications. Patient is seeing therapist at [facility] in [place]. 03/12/2025 Anxiety (ICD-10 - F41.9) 07/17/2024 Bipolar 1 disorder, depressed, partial remission [...] lung cancer diagnosis; pt sees oncology tomorrow 11/11/2024 Bipolar 1 disorder, depressed, moderate (ICD-10 [...] effects or need for dosage change 07/17/2024 Anxiety (ICD-10 - F41.9) Pt reports that his anxiety is under control at this time and he is tolerating medication well. Pt denies side effects to medications. Patient is seeing therapist at [facility] in [place]. 11/11/2024 Anxiety (ICD-10 - F41.9) Continue hydroxyzine. [...] side effects or need for dosage change. 04/24/2024 Other Discussed treat ment planDiscussed sleep [...] May also contact the 24-hour crisis hotline ([facility]), refer to the closest emergency room or [...] aware that this provider will be leaving [facility] as of 07/24/2024, and she will be transitioned to a new provider at that time. 08/26/2024 Other May self-administer medications or be administered own oral medications per [facility] protocols. Provided informed consent with understanding of [...] Reviewed Encouraged by Radha Joseph PMHNP- to: [] consider utilizing therapist/counselor/so cial worker/psychologist, referral given [x] continue with therapist/counselor/so cial worker/psychologist Psychoeducation: -Treatment options discussed in detail with patient/guardian verbalizing understanding of treatment rationales. -Side effects and benefits of all medications prescribed discussed at length between psychiatric prescribing provider and patient/guardian along with the risks associated of nlup-gb-zadl interactions, including but not limited to prescription [...] engaged in treatment plan with Radha Joseph [facility]. -Perceiving complete understanding of rationale by patient/guardian and willingness to adhere to formulated plan of care by prescriber with patient/guardian buy-in, willingness to participate actively in plan of care and willing to take charge of own care. -Although geared for female patients, all patients/guardians are informed by prescribing provider of risks of medications that could potentially be taken by female/women within their [place] of influence and that women who use [...] a should occur, to consult with provider, SMELTER LINER and/or Nurse Tumbling Machine Operator to determine if prescribed medications should or [...] or be administered own oral medications per [facility] protocols. Provided informed consent with understanding of [...] patient/guardian along with the risks associated of ghjv-ca-cuft interactions, including but not limited to prescription [...] and engaged in treatment plan with Radha Guerrierian [facility]. -Perceiving complete understanding of rationale by patient/guardian and willingness to adhere to formulated plan of care by prescriber with patient/guardian buy-in, willingness to participate actively in plan of care and willing to take charge of own care. -Although geared for female patients, all patients/guardians are informed by prescribing provider of risks of medications that could potentially be taken by female/women within their [place] of influence and that women who use [...] a should occur, to consult with provider, SMELTER LINER and/or Nurse Tumbling Machine Operator to determine if prescribed medications should or [...] or be administered own oral medications per [facility] protocols. Provided informed consent with understanding of [...] in person appointment. Plan: -Provider called [facility] pharmacy to verify patient was taking medications correctly, they confirmed. No refills needed at this time. [facility] confirmed they will send out refill request [...] Reviewed [] [employer] Reviewed Encouraged by Radha YOUSSEFP- to: [] consider utilizing therapist/counselor/so cial worker/psychologist, referral given [x] continue with therapist/counselor/so cial worker/psychologist Psychoeducation: -Treatment options discussed in detail with patient/guardian verbalizing understanding of treatment rationales. -Side effects and benefits of all medications prescribed discussed at length between psychiatric prescribing provider and patient/guardian along with the risks associated of qjao-xg-dcak interactions, including but not limited to prescription [...] [facility] -Perceiving complete understanding of rationale by patient/guardian and willingness to adhere to formulated plan of care by prescriber with patient/guardian buy-in, willingness to participate actively in plan of care and willing to take charge of own care. -Although geared for female patients, all patients/guardians are informed by prescribing provider of risks of medications that could potentially be taken by female/women within their [place] of influence and that women who use [...] a should occur, to consult with provider, SMELTER LINER and/or Nurse Tumbling Machine Operator to determine if prescribed medications should or [...] or be administered own oral medications per [facility] protocols. Provided informed consent with understanding of [...] [] [employer]ight Reviewed Encouraged by Radha Joseph [facility] to: [x] consider utilizing therapist/counselor/so cial worker/psychologist, referral given [] continue with therapist/counselor/so cial worker/psychologist Psychoeducation: -Treatment options discussed in detail with patient/guardian verbalizing understanding of treatment rationales. -Side effects and benefits of all medications prescribed discussed at length between psychiatric prescribing provider and patient/guardian along with the risks associated of ktmq-du-jvyi interactions, including but not limited to prescription [...] engaged in treatment plan with Radha Joseph [facility]. -Perceiving complete understanding of rationale by patient/guardian and willingness to adhere to formulated plan of care by prescriber with patient/guardian buy-in, willingness to participate actively in plan of care and willing to take charge of own care. -Although geared for female patients, all patients/guardians are informed by prescribing provider of risks of medications that could potentially be taken by female/women within their [place] of influence and that women who use [...] a should occur, to consult with provider, SMELTER LINER and/or Nurse Tumbling Machine Operator to determine if prescribed medications should or [...] or be administered own oral medications per [facility] protocols. Provided informed consent with understanding of [...] [] [employer]Sight Reviewed Encouraged by Radha Joseph [facility] to: [x] consider utilizing therapist/counselor/so cial worker/psychologist [] continue with therapist/counselor/so cial worker/psychologist Psychoeducation: -Treatment options discussed in detail with patient/guardian verbalizing understanding of treatment rationales. -Side effects and benefits of all medications prescribed discussed at length between psychiatric prescribing provider and patient/guardian along with the risks associated of palc-ks-gbza interactions, including but not limited to prescription [...] engaged in treatment plan with Radha Joseph [facility]. -Perceiving complete understanding of rationale by patient/guardian and willingness to adhere to formulated plan of care by prescriber with patient/guardian buy-in, willingness to participate actively in plan of care and willing to take charge of own care. -Although geared for female patients, all patients/guardians are informed by prescribing provider of risks of medications that could potentially be taken by female/women within their [place] influence and that women who use [...] a should occur, to consult with provider, SMELTER LINER and/or Nurse Tumbling Machine Operator to determine if prescribed medications should or [...] is, of course, ultimately left to [facility] [id number]|2025-03-13 08:34:00|2025-03-13 08:34:00|XMS_ITS|BKG DAEMON|External Medical Summaries|[id number]|" Encounter Summary Created on: March 13, 2025 Josafat Calvo : 1960 Sex: Male Author Organization [facility] Address [address] [place] [address] Phone Care Team Providers Care Psychotherapist Name Role Phone Matthew Mccabe MD Primary Care Prov ider Stan Meza MD Unavailable [phone] Encounter Details Date Type Department Care Team (Late st Contact Info) Description 10/24/2024 Documentation [facility] Oncology [address] [facility] [address] [place] [address] Olimpia Parr, [facility] Social History Tobacco Use Types Packs/Day Years [...] file 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
--- OUTSIDE RECORDS SUMMARY | 2025-03-13 08:34 | XMS_ITS | Encounter Summary ---
Author Organization [facility] Address [address] [place] [address] Care Team Providers Care Weave Defect Charting Clerk Name Role Phone Ian Pollock MD Primary Care Provider Ian Pollock MD Primary Care Provider [phone] Ian Pollock MD Primary Care Provider [phone] Ian Pollock MD Primary Care Provider [phone] Katina Casiano DO Unavailable [phone] Xavi ACOSTA MD, Fred R Primary Care Provider + Katina Casiano DO Unavailable [phone] Tracey Ang PA Unavailable [phone] Belkis Angel KEYPUNCHER-LAW OFFICE MANAGER Primary Care Provider + Natalie Baum Primary Care Provider [phone] Reason for Visit * Reason Onset Date Comments Referral 12/13/2019 Encounter Details Date Type Department Care Team (Late st Contact Info) Description 12/13/2019 Telephone [facility] [address] [place] [address] Monica Tellez, KEYPUNCHER-LAW OFFICE MANAGER [address] [place] [address] Referral Social History Tobacco Use [...] on file 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 Pollock will be going to [facility] part-time in March, but patient apprised this TNs thathe had called for a more current appointment, and is to see Dr. Pollock today. ESS SAFETY ENGINEER * Telephone Encounter - Monica Tellez APRN-CNP - 12/16/2019 4:30 PM PROCESS SAFETY ENGINEER Do not know any handstitching machine collar feller on [facility]. He will need to call his insurance company for list of [place] handstitching machine collar feller. 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 MARISOL Díaz ESS SAFETY ENGINEER * Telephone Encounter - Janice Conn RN - 12/13/2019 10:45 AM PROCESS SAFETY ENGINEER Routing message to Dr Pollock ESS SAFETY ENGINEER * Telephone Encounter - Meenu Hidalgo - 12/13/2019 10:36 AM CST PT is calling and wanting to be referred to a handstitching machine collar feller on the [facility]. PT stats it wouldbe more convenient and easier for the med cab. PT CBN:[phone] ESS SAFETY ENGINEER documented in this encounter Plan of [...] on filedocumented in this encounter Care Teams Weave Defect Charting Clerk Relationship Specialty Start Date End Date Ian Pollock MD PCP - General 12/13/19 05/25/20 Ian Pollock MD PCP - General 05/26/20 06/15/20 Ian Pollock MD [address] [facility] [place] [address] PCP - General 07/31/20 08/20/20 Ian Pollokc MD [address] [facility] [place] [address] PCP - General 08/21/20 05/29/23 Jameel Hurley III, MD [address] [facility] [place] [id number] PCP - General Internal Medicine 06/05/23 08/28/23 Belkis Angel, KEYPUNCHER-LAW OFFICE MANAGER [address] [place] [address] PCP - General Nurse Practitioner 08/29/23 05/05/24 Natalie Baum [address] [place] [address] PCP - General 05/06/24 Katina Casiano DO [address] [facility] [place], [place] Resident - PCP Internal Medicine 08/10/22 05/29/23 Katina Casiano DO [address] [facility] [place], [place] Hospitalist 06/05/23 Tracey Ang PA [address] [facility] [address] [place] [address] Physician Engine Oiler 08/15/23 documented as of this encounter
--- OUTSIDE RECORDS SUMMARY | 2025-03-13 08:34 | XMS_ITS | Encounter Summary ---
Author Organization [facility] Address [address] [place] [address] Care Team Providers Care Guidance Consultant Name Role Phone Monica Tellez CHAIR INSPECTOR-HYDROLOGY PROFESSOR Primary Care Provi cristobal Ian Pollock MD Primary Care Provider [phone] Ian Pollock MD Primary Care Provider [phone] Ian Pollock MD Primary Care Provider [phone] Ian Pollock MD Primary Care Provider [phone] Ian Pollock MD Primary Care Provider +[phone] Katina Casiano DO Unavailable [phone] Xavi ACOSTA MD, Fred R Primary Care Provider + Katina Casiano DO Unavailable [phone] Tracey Ang PA Unavailable [phone] Belkis Angel CHAIR INSPECTOR-HYDROLOGY PROFESSOR Primary Care Provider + Natalie Baum Primary Care Provider [phone] Reason for Visit * Reason Onset Date Comments Results 10/25/2019 Encounter Details Date Type Department Care Team (Late st Contact Info) Description 10/25/2019 Telephone [facility] [address] [address] Monica Tellez CHAIR INSPECTOR-HYDROLOGY PROFESSOR [address] [place] [address] Results Social History Tobacco Use Types Packs/Day [...] on file 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 This TNs. Found HCTTE 2D w/Con Doppler/color CMPT Done 10/25/2019, in chart under Cardiac tab, Faxed to [facility]. Pt request callback: [phone]. Pt seems very nervous about his results. ECT MANAGEMENT ANALYST * Telephone Encounter - Monica Tellez APRN-CNP - 10/25/2019 1:56 PM PROJECT MANAGEMENT ANALYST Please find out what ultrasound he had. Have not ultrasound results. Who would have ordered this and where?? MARISOL Díaz ECT MANAGEMENT ANALYST * Telephone Encounter - Maria Isabel William RN - 10/25/2019 1:47 PM CST Patient nervous about ultrasound result Please call [phone] ECT MANAGEMENT ANALYST documented in this encounter Plan of [...] on filedocumented in this encounter Care Teams Guidance Consultant Relationship Specialty Start Date End Date Monica Tellez APRN-CNP PCP - General 07/03/19 11/13/19 Ian Pollock MD PCP - General 11/14/19 12/12/19 Ian Pollock MD PCP - General 12/13/19 05/25/20 Ian Pollock MD PCP - General 05/26/20 06/15/20 Ian Pollock MD [address] [place] [address] PCP - General 07/31/20 08/20/20 Ian Pollock MD [address] [place] [address] PCP - General 08/21/20 05/29/23 Jameel Hurley III, MD [address] [place] [phone] PCP - General Internal Medicine 06/05/23 08/28/23 Belkis Angel, CHAIR INSPECTOR-HYDROLOGY PROFESSOR [address] [place] [phone] PCP - General Nurse Practitioner 08/29/23 05/05/24 Natalie Baum [address] [place] [address] PCP - General 05/06/24 Katina Casiano DO [address] DIV OF GEN INTERNAL MEDICINE [place], [place] Resident - PCP Internal Medicine 08/10/22 05/29/23 Katina Casiano DO [address] DIV OF [facility] INTERNAL MEDICINE [place], [place] Hospitalist 06/05/23 Tracey Ang PA [address] [place] [address] Physician Opener 08/15/23 documented as of this encounter
--- OUTSIDE RECORDS SUMMARY | 2025-03-13 08:34 | XMS_ITS ---
Author Organization [facility] Address [address] [place] [address] Care Team Providers Care Industrial Sales Representative Name Role Phone Matthew Mccabe MD Primary Care Prov ider Stan Meza MD Unavailable [phone] Active Problems Problem Noted Date Diagnosed Date [...]
--- OUTSIDE RECORDS SUMMARY | 2025-03-13 08:34 | XMS_ITS | Encounter Summary ---
Author Organization [facility] Address [address] [facility] [place] [address] Care Team Providers Care Gas Meter Reader Name Role Phone Monica Tellez CRATE MAKER-QUILT MAKER Primary Care Provi cristobal Ian Pollock MD Primary Care Provider [phone] Ian Pollock MD Primary Care Provider [phone] Ian Pollock MD Primary Care Provider +[phone] Ian Pollock MD Primary Care Provider [phone] Ian Pollock MD Primary Care Provider +[phone] Katina Casiano DO Unavailable [phone] Xavi ACOSTA MD, Fred R Primary Care Provider + Katina Casiano DO Unavailable [phone] Tracey Ang PA Unavailable [phone] Belkis Angel CRATE MAKER-QUILT MAKER Primary Care Provider + Natalie Baum Primary Care Provider [phone] Reason for Visit * Reason Onset Date Comments General 11/12/2019 Encounter Details Date Type Department Care Team (Late st Contact Info) Description 11/12/2019 Telephone [facility] [address] [place] [address] Monica Tellez CRATE MAKER-QUILT MAKER [address] [place] [address] General Social History Tobacco Use Types Packs/Day [...] on file 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 He was upset that I told him to ask his pulmonary doctor to order low dose CT since pulmonary was the one who usually ordered this. MARISOL Díaz ETS SALESPERSON * Telephone Encounter - Nadeem Hancock - 11/12/2019 1:07 PM CST Pt called to request to be released from the provider's care. Caller stated that the provider has done a couple of things to rub him the wrong way, and he would like another provider. Pt provided call back number [phone] Message routed to provider for review and assistance ETS SALESPERSON documented in this encounter Plan of [...] on filedocumented in this encounter Care Teams Gas Meter Reader Relationship Specialty Start Date End Date Monica Tellez, CRATE MAKER-QUILT MAKER PCP - General 07/03/19 11/13/19 Ian Pollock MD PCP - General 11/14/19 12/12/19 Ian Pollock MD PCP - General 12/13/19 05/25/20 Ian Pollock MD PCP - General 05/26/20 06/15/20 Ian Pollock MD [address] [place] [address] PCP - General 07/31/20 08/20/20 Ian Pollock MD [address] DIV [place] [address] PCP - General 08/21/20 05/29/23 Jameel Hurley III, MD [address] [place] [address] PCP - General Internal Medicine 06/05/23 08/28/23 Belkis Angel, CRATE MAKER-QUILT MAKER [address] [phone] PCP - General Nurse Practitioner 08/29/23 05/05/24 Natalie Baum [address] [place] [address] PCP - General 05/06/24 Katina Casiano DO [address] DIV OF [facility] INTERNAL MEDICINE [place], [place] Resident - PCP Internal Medicine 08/10/22 05/29/23 Katina Casiano DO [address] DIV OF [facility] INTERNAL MEDICINE [place], [place] Hospitalist 06/05/23 Tracey Ang PA [address] [place] [address] Physician Escalator Constructor 08/15/23 documented as of this encounter
--- OUTSIDE RECORDS SUMMARY | 2025-03-13 08:34 | XMS_ITS | Encounter Summary ---
Author Organization [facility] Address [address] [place] [address] Care Team Providers Care Equipment Service Engineer Name Role Phone Ian Pollock MD Primary Care Provider Katina Casiano DO Unavailable [phone] Xavi ACOSTA MD, Jameel Gaviria Primary Care Provider + Katina Casiano DO Unavailable [phone] Tarcey Ang PA Unavailable [phone] Belkis Angel LOCK MAINTENANCE SUPERVISOR-SOLDER LEVELER PRINTED CIRCUIT BOARDS Primary Care Provider + Natalie Baum Primary Care Provider [phone] Encounter Details Date Type Department Care Team (Late st Contact Info) Description 02/18/2022 Telephone [facility] Pulmonary, Critical Care and Sleep Medicine [address] [facility] [place] [address] Agnieszka Haas MD [address] [place] [address] Social History Tobacco Use Types Packs/Day Years [...] on file 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 Patient Call Back number: [phone] documented in this encounter Plan of Treatment [...] on filedocumented in this encounter Care Teams Equipment Service Engineer Relationship Specialty Start Date End Date Ian Pollock MD [address] DIV [place] [address] PCP - General 08/21/20 05/29/23 Jameel Hurley III, MD [address] [place] [phone] PCP - General Internal Medicine 06/05/23 08/28/23 Belkis Angel, LOCK MAINTENANCE SUPERVISOR-SOLDER LEVELER PRINTED CIRCUIT BOARDS [address] [phone] PCP - General Nurse Practitioner 08/29/23 05/05/24 Natalie Baum [address] [place] [address] PCP - General 05/06/24 Katina Casiano DO [address] DIV OF [facility] INTERNAL MEDICINE [place] Resident - PCP Internal Medicine 08/10/22 05/29/23 Katina Casiano DO [address] DIV OF [facility] INTERNAL MEDICINE [place] Hospitalist 06/05/23 Tracey Ang PA [address] [place] [address] Physician Granulator Machine Operator 08/15/23 documented as of this encounter
--- OUTSIDE RECORDS SUMMARY | 2025-03-13 08:34 | XMS_ITS | Encounter Summary ---
Author Organization [facility] Address [address] [facility] [place] [address] Care Team Providers Care Presser And Shaper Knitted Goods Name Role Phone Monica Tellez RESEARCH DEVELOPMENT MANAGER-TICKET DISPATCHER Primary Care Provi cristobal Ian Pollock MD Primary Care Provider [phone] Ian Pollock MD Primary Care Provider [phone] Ian Pollock MD Primary Care Provider [phone] Ian Pollock MD Primary Care Provider [phone] Ian Pollock MD Primary Care Provider [phone] Katina Casiano DO Unavailable [phone] Xavi ACOSTA MD, Fred R Primary Care Provider + Katina Casiano DO Unavailable [phone] Tracey Agn PA Unavailable [phone] Belkis Angel RESEARCH DEVELOPMENT MANAGER-TICKET DISPATCHER Primary Care Provider + Natalie Baum Primary Care Provider [phone] Reason for Visit * Reason Onset Date Comments Appointment 09/11/2019 Encounter Details Date Type Department Care Team (Late st Contact Info) Description 09/11/2019 Telephone [facility] [address] [address] Monica Tellez RESEARCH DEVELOPMENT MANAGER-TICKET DISPATCHER [address] [place] [address] Appointment Social History Tobacco Use Types Packs/Day [...] on file 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 Gender Identity Not on file Sexual Orientation [...] disconnected Called again warm transfer to scheduling RHAND documented in this encounter Plan of Treatment [...] on filedocumented in this encounter Care Teams Presser And Shaper Knitted Goods Relationship Specialty Start Date End Date Monica Tellez, RESEARCH DEVELOPMENT MANAGER-TICKET DISPATCHER PCP - General 07/03/19 11/13/19 Ian Pollock MD PCP - General 11/14/19 12/12/19 Ian Pollock MD PCP - General 12/13/19 05/25/20 Ian Pollock MD PCP - General 05/26/20 06/15/20 Ian Pollock MD [address] DIV OF [facility] [place] [address] PCP - General 07/31/20 08/20/20 Ian Pollock MD [address] DIV OF [facility] [place] [address] PCP - General 08/21/20 05/29/23 Jameel Hurley III, MD [address] DIV OF [facility] [place] [address] PCP - General Internal Medicine 06/05/23 08/28/23 Belkis Angel, RESEARCH DEVELOPMENT MANAGER-TICKET DISPATCHER [address] [facility] 2nd [place] [address] PCP - General Nurse Practitioner 08/29/23 05/05/24 Natalie Baum [address] [place] [address] PCP - General 05/06/24 Katina Casiano DO [address] [facility] 2[address] DIV OF GEN INTERNAL MEDIC[place] Resident - PCP Internal Medicine 08/10/22 05/29/23 Katina Casiano DO [address] [facility] 2[address] DIV OF GEN INTERNAL [place]IC[place] Hospitalist 06/05/23 Tracey Ang PA [address] [facility] [address] [place] [address] Physician Apple Packing Header 08/15/23 documented as of this encounter
--- OUTSIDE RECORDS SUMMARY | 2025-03-13 08:34 | XMS_ITS | Encounter Summary ---
Author Organization [facility] Address [address] [facility] [address] Care Team Providers Care Technology Analyst Name Role Phone Ian Pollock MD Primary Care Provider Katina Casiano DO Unavailable [phone] Xavi ACOSTA MD, Jameel Gaviria Primary Care Provider + Katina Casiano DO Unavailable [phone] Tracey Ang PA Unavailable [phone] Belkis Angel IMPROVEMENT SPECIALIST-WALL AND FLOOR TILER Primary Care Provider + Natalie Baum Primary Care Provider [phone] Reason for Visit * Reason Onset Date Comments Cardiac Rehab 02/23/2022 Encounter Details Date Type Department Care Team (Late st Contact Info) Description 02/23/2022 Telephone [facility] Card[facility] Rehabilitation [address] [place] [address] Rama Lagos, superintendent commissary Social History Tobacco Use Types Packs/Day Years [...] on file 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 Gender Identity Not on file Sexual Orientation [...] on filedocumented in this encounter Care Teams Technology Analyst Relationship Specialty Start Date End Date Ian Pollock MD [address] [place] [address] PCP - General 08/21/20 05/29/23 Jameel Hurley III, MD [address] DIV OF [facility] [place] [address] PCP - General Internal Medicine 06/05/23 08/28/23 Belkis Angel, IMPROVEMENT SPECIALIST-WALL AND FLOOR TILER [address] [facility] 2nd [place] [address] PCP - General Nurse Practitioner 08/29/23 05/05/24 Natalie Baum [address] [place] [address] PCP - General 05/06/24 Katina Casiano DO [address] [facility] [address] DIV OF GEN INTERNAL MEDICINE [place], [place] Resident - PCP Internal Medicine 08/10/22 05/29/23 Katina Casiano DO [address] [facility] [address] DIV OF GEN [place] Hospitalist 06/05/23 Tracey Ang PA [address] [facility] [address] [place] [address] Physician Traction Power Engineer 08/15/23 documented as of this encounter
--- OUTSIDE RECORDS SUMMARY | 2025-03-13 08:34 | XMS_ITS | Clinical Summary ---
Author Organization [facility] Address [address], [facility] [address] [place] [address] Phone Care Team Providers Care Watch Train Inspector Name Role Phone Patito Randalli Israel ELECTROLYTIC DE SCALER, CONVEYOR MECHANIC Unavailable Allergies Active Allergy Reactions Criticality Noted [...] Comments Blood Pressure 142/74 11/06/2017 2:41 PM DIFFERENTIAL REPAIRER Pulse 77 11/06/2017 2:41 PM DIFFERENTIAL REPAIRER Temperature 36.1 C (97 F) 11/06/2017 2:41 PM DIFFERENTIAL REPAIRER Respiratory Rate 18 11/06/2017 2:41 PM DIFFERENTIAL REPAIRER Oxygen Saturation 99% 11/06/2017 8:00 AM DIFFERENTIAL REPAIRER Inhaled Oxygen Concentration - - Weight 113.4 kg (250 lb) 11/03/2017 6:25 PM DIFFERENTIAL REPAIRER Height 175.3 cm (5' 9 ) 11/03/2017 6:25 PM DIFFERENTIAL REPAIRER Body Mass Index 36.92 11/03/2017 6:25 PM DIFFERENTIAL REPAIRER Plan of Treatment Health Maintenance Due Date [...] CHEST W/O CONTRAST STAT 11/03/2017 11:30 PM DIFFERENTIAL REPAIRER from Last 3 Months or Most Recently Relevant to Health Maintenance Results * CT CHEST W/O CONTRAST (11/03/2017 11:30 PM DIFFERENTIAL REPAIRER) Anatomical Region Laterality Modality Chest N/A Computed Tomogra phy 11/04/2017 12:2 4 AM DIFFERENTIAL REPAIRER Impressions 11/04/2017 12:28 AM DIFFERENTIAL REPAIRER IMPRESSION: 1. A few nonspecific scattered ground-glass infiltrates in the bilateral upper lobes, which may represent pneumonia. 2. Mild paraseptal emphysema. Automated exposure control was used as a dose optimization technique for this examination. Narrative 11/04/2017 12:28 AM DIFFERENTIAL REPAIRER EXAMINATION: CT chest without contrast HISTORY: Cough, [...] Maintenance Insurance [address] [place] [id number] Advance Directives * Full Code (Latest Code Status on File) Date Activated Date Inactivated Comments 11/04/2017 9:36 AM 11/06/2017 6:27 PM CPR-Full Treat ment: FULL ARREST: Attempt Resuscitation/CPR wit intubation and mechanical ventilation. PRE-ARREST: Use entire range of life support measures to stabilize the patient. Care Teams Watch Train Inspector Relationship Specialty Start Date End Date Montserrat Randall APRN, CONVEYOR MECHANIC Nurse Practitioner Advanced Practice Nurse 10/21/16
--- OUTSIDE RECORDS SUMMARY | 2025-03-13 08:34 | XMS_ITS | Encounter Summary ---
Author Organization [facility] Address [address] [facility] [facility] [place] [address] Care Team Providers Care Log Chipper Operator Name Role Phone Ian Pollock MD Primary Care Provider [phone] Katina Casiano DO Unavailable [phone] Xavi ACOSTA MD, Jameel Gaviria Primary Care Provider + Katina Casiano DO Unavailable [phone] Tracey Ang PA Unavailable [phone] Belkis Angel BALL SORTER-CODING EDUCATOR Primary Care Provider + Natalie Baum Primary Care Provider [phone] Encounter Details Date Type Department Care Team (Late st Contact Info) Description 03/03/2022 Telephone [facility] [address] [place] [address] [place] [address] [address] Social History Tobacco Use Types Packs/Day Years [...] on file 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 He is having transportation issues med [employer] does not run that late. He will call back to schedule when he can figure out his transportation. Please cancel this appt for him. Patient Call Back number: [phone] documented in this encounter Plan of Treatment [...] on filedocumented in this encounter Care Teams Log Chipper Operator Relationship Specialty Start Date End Date Ian Pollock MD [address] DIV OF [facility] [place] [address] PCP - General 08/21/20 05/29/23 Jameel Hurley III, MD [address] DIV OF [facility] [place] [address] PCP - General Internal Medicine 06/05/23 08/28/23 Belkis Angel APRN-CODING EDUCATOR [address] [place] [address] [address] [place] [phone] PCP - General Nurse Practitioner 08/29/23 05/05/24 Natalie Baum [address] [place] [address] PCP - General 05/06/24 Katina Casiano DO [address] DIV OF [facility] INTERNAL [place], [place] Resident - PCP Internal Medicine 08/10/22 05/29/23 Katina Casiano DO [address] DIV OF [facility] INTERNAL MEDICINE [place], [place] Hospitalist 06/05/23 Tracey Ang PA [address] [place] [address] Physician Manager Secondary 08/15/23 documented as of this encounter
--- OUTSIDE RECORDS SUMMARY | 2025-03-13 08:34 | XMS_ITS | Encounter Summary ---
Author Organization [facility] Address [address] [facility] [place] [address] Care Team Providers Care Sewing Machinist Name Role Phone Ian Pollock MD Primary Care Provider Ian Pollock MD Primary Care Provider [phone] Ian Pollock MD Primary Care Provider [phone] Ian Pollock MD Primary Care Provider [phone] Katina Casiano DO Unavailable [phone] Xavi ACOSTA MD, Jameel R Primary Care Provider + Katina Casiano DO Unavailable [phone] Tracey Ang PA Unavailable [phone] Belkis Angel INTEGRATION AIDE-TOE SEWER Primary Care Provider + Natalie Baum Primary Care Provider [phone] Reason for Visit * Reason Onset Date Comments MEDICATION REFILL 05/05/2020 Encounter Details Date Type Department Care Team (Late st Contact Info) Description 05/05/2020 Refill [facility] Pulmonary, Critical Care and Sleep Medicine [address] [place] [address] Agnieszka Haas MD [address] [place] [address] MEDICATION REFILL Social History Tobacco Use Types [...] on file 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 HAND 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 Gender Identity Not on file Sexual Orientation [...] Columba Leavitt RN documented in this encounter Plan [...] on filedocumented in this encounter Care Teams Sewing Machinist Relationship Specialty Start Date End Date Ian Pollock MD PCP - General 12/13/19 05/25/20 Ian Pollock MD PCP - General 05/26/20 06/15/20 Ian Pollock MD [address] DIV OF [facility] [place] [address] PCP - General 07/31/20 08/20/20 Ian Pollock MD [address] DIV OF [facility] [place] [address] PCP - General 08/21/20 05/29/23 Jameel Hurley III, MD [address] DIV OF [facility] [place] [phone] PCP - General Internal Medicine 06/05/23 08/28/23 Belkis Angel, INTEGRATION AIDE-TOE SEWER [address] [phone] PCP - General Nurse Practitioner 08/29/23 05/05/24 Natalie Baum [address] [place] [address] PCP - General 05/06/24 Katina Casiano DO [address] DIV OF [facility] INTERNAL MEDICINE [place], [place] Resident - PCP Internal Medicine 08/10/22 05/29/23 Katina Casiano DO [address] DIV OF [facility] INTERNAL MEDICINE [place], [place] Hospitalist 06/05/23 Tracey Ang PA [address] [facility] [address] [place] [address] Physician Tree Driller 08/15/23 documented as of this encounter
--- OUTSIDE RECORDS SUMMARY | 2025-03-13 08:34 | XMS_ITS | Referral Summary ---
Author Organization [facility] Address [address] [place] [address] Care Team Providers [place] Library Director Name Role Phone Matthew Mccabe MD Primary Care Prov ider Stan Meza MD Unavailable [phone] Encounters Date Type Department Care Team Description 03/06/2025 Social Work [facility] [address] [place] [address] Floor [address] [place] [address] Sraah Brunner LCSW 03/06/2025 12:15 PM CDT - 03/06/2025 11:59 PM CDT Hospital Encounter [facility] - Diagnostic Imaging [facility] [place] [place] Floor [address] [place] [address] Primary cancer of left lower lobe of lung (HCC) Discharge Disposition: Discharge to home or self care 03/06/2025 10:30 AM CDT Lab [facility] - Lab Collection [facility] [place] [place] Floor [address] [place] [address] Primary cancer of left lower lobe of lung (HCC) 03/06/2025 10:15 AM CDT Lab [facility] Lab [address] [place] [address] Floor 5 [place] [address] Primary cancer of left lower lobe of lung (HCC) 03/06/2025 11:20 AM CDT Office Visit [facility] [address] [place] [address] Floor [address] [place] [address] Stan Meza MD Primary cancer of left lower lobe of lung (HCC) (Primary Dx) 03/03/2025 Documentation [facility] [address] [place] [phone] Sarah Brunner LCSW 02/28/2025 Telephone [facility] [address] [place] [phone] Maddy Freire, ALYX 02/28/2025 Telephone [facility] [address] [place] [phone] Maddy Freire, ALYX 02/26/2025 Telephone [facility] [address] [place] [phone] Sasha Hernandes RN 02/25/2025 Orders Only [facility] [address] [place] [phone] Sasha Hernandes RN Primary cancer of left lower lobe of lung (HCC) (Primary Dx) 02/21/2025 Orders Only [facility] [address] [place] [phone] Sasha Hernandes RN Hyperthyroidism (Primary Dx) 02/20/2025 Documentation [facility] [address] [place] [address] Dagmar Pickard, LARRY 02/20/2025 9:30 AM CDT Infusion [facility] - Infusion [address] [place] [address] Primary cancer of left lower lobe of lung (HCC) (Primary Dx) 02/20/2025 8:45 AM CDT Lab [facility] - Lab Collection [address] [place] [address] Primary cancer of left lower lobe of lung (HCC); Hypokalemia 02/20/2025 9:20 AM CDT Office Visit [facility] [address] [place] [phone] Stan Meza MD Primary cancer of left lower lobe of lung (HCC) (Primary Dx) 02/20/2025 7:11 AM CDT - 02/20/2025 11:59 PM CDT Hospital Encounter [facility] [address] [place] [phone] Stan Meza MD Primary cancer of left lower lobe of lung (HCC); Metastasis to bone (HCC) Discharge Disposition: Discharge to home or self care 02/19/2025 Orders Only [facility] [address] [place] [address] [address] [place] [address] Sasha Hernandes, RN Primary cancer of left lower lobe of lung (HCC) (Primary Dx) 02/12/2025 Social Work [facility] [address] [place] [phone] Sarah Brunner, BUSINESS SUPPORT ADMINISTRATOR 02/10/2025 Social Work [facility] [address] [place] [phone] Sarah Brunner, BUSINESS SUPPORT ADMINISTRATOR 01/30/2025 Documentation [facility] [address] [place] [address] 01/30/2025 Telephone [facility] [address] [place] [phone] Cindy Montelongo RN 01/30/2025 10:00 AM CDT Lab [facility] - Lab Collection [address] [place] [address] [address] [place] [address] Primary cancer of left lower lobe of lung (HCC); Hypokalemia 01/30/2025 11:00 AM CDT Office Visit [facility] [address] [place] [phone] Shari Quintana, LE Primary cancer of left lower lobe of lung (HCC) (Primary Dx); Metastasis to bone (HCC); Hypokalemia 01/30/2025 12:00 PM CDT Infusion [facility] Infusion [address] [place] [address] Floor 5 [place] [address] Metastasis to bone (HCC) (Primary Dx); Primary cancer of left lower lobe of lung (HCC); Hypokalemia 01/27/2025 8:11 PM CDT - 01/27/2025 11:59 PM CDT Hospital Encounter [facility]) [facility] [place] [address] Diagnosis unknown Discharge Disposition: Discharge to home or self care 01/23/2025 Telephone [facility] [address] [place] [address] Dagmar Pickard, LARRY 01/22/2025 Social Work [facility] [address] [place] [phone] Sarah Brunner, BUSINESS SUPPORT ADMINISTRATOR 01/22/2025 Telephone [facility] [address] [place] [phone] Sasha Hernandes RN 01/16/2025 Social Work [facility] [address] [place] [phone] Sarah Brunner, BUSINESS SUPPORT ADMINISTRATOR 01/09/2025 10:00 AM CDT Infusion [facility] - Infusion [address] [place] [address] 01/09/2025 Orders Only [facility] [address] [place] [phone] Maddy Freire, ALYX 01/09/2025 8:30 AM CDT Infusion [facility] - Infusion [address] [place] [address] Floor [address] [place] [address] Hypokalemia (Primary Dx); Primary cancer of left lower lobe of lung (HCC) 01/09/2025 7:30 AM CDT Lab [facility] - Lab Collection [address] [place] [address] [address] [place] [address] Primary cancer of left lower lobe of lung (HCC); Hypokalemia 01/08/2025 Social Work [facility] [address] [place] [address] Floor [address] [place] [address] Sarah Burnner, BUSINESS SUPPORT ADMINISTRATOR 01/03/2025 Documentation [facility] [address] [place] [address] Floor [address] [place] [address] Sarah Brunner, BUSINESS SUPPORT ADMINISTRATOR 01/02/2025 Social Work [facility] [address] [place] [address] [address] [place] [address] Sarah Brunner, BUSINESS SUPPORT ADMINISTRATOR 01/02/2025 Telephone [facility] [address] [place] [address] Dagmar Pickard, RD 01/02/2025 Orders Only [facility] [address] [place] [phone] Cindy Montelongo RN Primary cancer of left lower lobe of lung (HCC) (Primary Dx); Hypokalemia 12/30/2024 Social Work [facility] [address] [place] [address] [address] [place] [address] Sarah Brunner, BUSINESS SUPPORT ADMINISTRATOR 12/30/2024 Telephone [facility] [address] [place] [phone] Angelika Curran CMA 12/26/2024 7:45 AM CANINE SERVICE INSTRUCTOR TRAINER Lab [facility] - Lab Collection [address] [place] [address] [address] [place] [address] Primary cancer of left lower lobe of lung (HCC); Hypokalemia; Metastasis to bone (HCC) 12/26/2024 9:30 AM CANINE SERVICE INSTRUCTOR TRAINER Infusion [facility] - Infusion [address] [place] [address] Floor [address] [place] [address] Metastasis to bone (HCC) (Primary Dx); Primary cancer of left lower lobe of lung (HCC); Hypokalemia 12/26/2024 8:40 AM CANINE SERVICE INSTRUCTOR TRAINER Office Visit [facility] [address] [place] [address] Floor [address] [place] [address] Stan Meza MD Primary cancer of left lower lobe of lung (HCC) (Primary Dx); Hypokalemia 12/20/2024 Documentation [facility] [address] [place] [address] Floor [address] [place] [address] Sarah Brunner, BUSINESS SUPPORT ADMINISTRATOR 12/19/2024 Telephone [facility] Floor [address] [place] [address] Sasha Hernandes RN 12/18/2024 Telephone [facility] Floor [address] [place] [address] Sasha Hernandes RN from Last 3 Months Allergies Active [...] 2 (two) times a day with meals 024 Active eplerenone (INSPRA) 25 mg tablet Take 1 tablet (25 mg total) by mouth daily 024 Active omeprazole (PriLOSEC) 40 mg capsule Take 1 capsule (40 mg total) by mouth daily before breakfast 019 Active aspirin 81 mg chewable tablet Take 1 tablet (81 mg total) by mouth daily 023 Active albuterol HFA (PROVENTIL HFA,VENTOLIN HFA,PROAIR HFA) 90 mcg/actuation inhaler Inhale 2 puffs every 6 (six) hours as needed 019 Active alfuzosin ER (UROXATRAL) 10 mg 24 [...] 160-4.5 mcg/actuation inhaler Inhale 2 puffs daily Active cholecalcifero l (VITAMIN D-3) 2000 unit capsule Active lamoTRIgine (LaMICtal) 100 mg tablet Take 1 tablet (100 mg total) by mouth 2 (two) times a day Active latanoprost (XALATAN) 0.005 % ophthalmic solution 1 drop nightly Active losartan (COZAAR) 50 mg tablet Take 1 tablet (50 mg total) by mouth daily Active triamcinolone (KENALOG) 0.1 % cream Apply topically 2 (two) times a day Active varenicline tartrate (CHANTIX) 1 mg tablet Take 1 tablet (1 mg total) by mouth 2 (two) times a day Has but not currently taking Active nicotine polacrilex (NICORETTE) 4 mg gum Take 1 each (4 mg total) by mouth as needed Has but not currently using Active nicotine (NICODERM CQ) [address] 1 patch on the skin daily Has but isn't currently using Active mirtazapine (REMERON) 7.5 mg tablet daily Active dexAMETHasone (DECADRON) 4 mg tabletIndicati ons:Primary cancer of left lower lobe of lung (HCC) Take 8 mg (2 tabs) by mouth once on Day 2, then 8 mg (2 tabs) twice daily on Days 3 and 4. 10 tablet 3 Active apixaban (ELIQUIS) 5 mg tablet Take 1 tablet (5 mg total) by mouth 2 (two) times a day 60 tablet Active hydrOXYzine (VISTARIL) 100 mg capsule TAKE 1 CAPSULE (100MG) BY MOUTH EVERY 8 HOURS IF NEEDED FOR 30 DAYS Active LORazepam (ATIVAN) 0.5 mg tablet daily Active senna (SENOKOT) 8.6 mg tablet daily Active traMADoL (ULTRAM) 50 mg tablet every 12 hours Activ e calcium carbonate-amando min D3 1,250 mg (500 mg elemental)-400 unit tablet Take 1 tablet by mouth repeater operator before breakfast 30 tablet 3 024 Active ipratropium-al buteroL (DUO-NEB) 0.5-2.5 mg/3 mL nebulizer solution INHALE 3 ML VIA NEBULIZER FOUR TIMES DAILY NEEDED FOR SHORTNESS OF BREATH OR WHEEZING 024 Active potassium chloride ER (KLOR-CON) 20 mEq CR tablet Take 1 tablet (20 mEq total) by mouth daily 14 tablet 025 Active ondansetron (ZOFRAN) 8 mg tabletIndicati ons:Primary cancer of left lower lobe of lung (HCC),Prophyla xis for chemotherapy-i nduced neutropenia Take 1 tablet (8 mg total) by mouth every 8 (eight) hours as needed for nausea or vomiting Use if prochlorperazine does not stop nausea 24 tablet 3 025 Active doxycycline 100 mg tablet Take 1 tablet/capsule (100 mg total) by mouth 2 (two) times a day 025 Active food supplemt, lactose-reduce d 0.05 gram- 1.5 kcal/mL liquid Take 1 Can by mouth daily 025 Active Senexon-S 8.6-50 mg TAKE 2 TABLETS BY MOUTH EVERY DAY 60 tablet 3 025 Active morphine ER (MS CONTIN) 30 mg 12 hr tablet Take 1 tablet (30 mg total) by mouth every 12 (twelve) hours 60 tablet 025 Active oxyCODONE (ROXICODONE) 5 mg immediate release tabletIndicati ons:Pain,cance r related pain Take 1-2 tablets (5-10 mg total) by mouth every 4 (four) hours as needed for pain 120 tablet 025 Active cefdinir (OMNICEF) 300 mg capsule Take 1 capsule (300 mg total) by mouth daily 025 Active tiotropium (SPIRIVA) 18 mcg per inhalation capsule Place 1 puff (1 capsule total) into inhaler and inhale as needed 025 Active senna-docusate (PERICOLACE) 8.6-50 mgIndications: constipation Take 2 tablets by mouth daily 60 tablet 3 024 2024 Discontinued oxyCODONE (ROXICODONE) 5 mg immediate release tabletIndicati ons:Pain,cance r related pain Take 1-2 tablets (5-10 mg total) by mouth every 4 (four) hours as needed for pain 120 tablet 025 2024 Discontinued(R eorder) morphine ER (MS CONTIN) 30 mg 12 hr tablet Take 1 tablet (30 mg total) by mouth every 12 (twelve) hours 60 tablet 025 2024 Discontinued(R eorder) predniSONE (DELTASONE) 20 mg tablet Take 3 tablets (60 mg) by mouth daily with breakfast for 7 days, THEN 2 tablets (40 mg) daily with breakfast for 7 days. 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 Gender Identity Not on file Sexual Orientation Not on file Last Filed Vital Signs Vital Sign Reading Time Taken Comments Blood Pressure 110/73 03/06/2025 11:00 AM CDT Pulse 108 03/06/2025 11:00 AM CDT Temperature 36.7 C (98 F) 02/20/2025 8:32 AM CDT Respiratory Rate 20 03/06/2025 11:0 0 AM CDT Oxygen Saturation 97% 03/06/2025 11: 00 AM CDT with 3 liters of O2 Inhaled Oxygen Concentration - - Weight 83.7 kg (184 lb 9.6 oz) 03/06/2025 11:00 AM CDT Height 175.3 cm (5' 9 ) 12/12/2024 8:02 AM CANINE SERVICE INSTRUCTOR TRAINER Body Mass Index 27.26 12/12/2024 8:02 AM CANINE SERVICE INSTRUCTOR TRAINER Plan of Treatment Not on file Procedures Procedure Name Priority Date/Time Associated Diagnosis Comments XR CHEST PA LATERAL 2 VIEWS Schedule Routine, Read Routine (OP Routine) 03/06/2025 12:26 PM CDT Primary cancer of left lower lobe of lung (HCC) OXYCODONE CONFIRMATION, URINE STAT 03/06/2025 10:48 AM CDT DRUGS OF ABUSE SCREEN, URINE WITH REFLEX CONFIRMATION STAT 03/06/2025 10:48 AM CDT Primary cancer of left lower lobe of lung (HCC) OPIATES CONFIRMATION MS, URINE STAT 03/06/2025 10:48 AM CDT EGFR STAT 03/06/2025 10:46 AM CDT Primary cancer of left lower lobe of lung (HCC) COMPREHENSIVE METABOLIC PANEL STAT 03/06/2025 10:46 AM CDT Primary cancer of left lower lobe of lung (HCC) DIFFERENTIAL AUTO Routine 03/06/2025 10: 41 AM CDT Primary cancer of left lower lobe of lung (HCC) CBC WITH AUTO DIFFERENTIAL Routine 03/06/2025 10:41 AM CDT Primary cancer of left lower lobe of lung (HCC) T3, FREE Routine 02/20/2025 8:15 AM CDT [...] (HCC) Hypokalemia EGFR STAT 12/26/2024 7:39 AM CANINE SERVICE INSTRUCTOR TRAINER Primary cancer of left lower lobe of lung (HCC) DIFFERENTIAL AUTO STAT 12/26/2024 7:3 9 AM CANINE SERVICE INSTRUCTOR TRAINER Primary cancer of left lower lobe of lung (HCC) Hypokalemia CBC WITH AUTO DIFFERENTIAL STAT 12/26/2024 7:39 AM CANINE SERVICE INSTRUCTOR TRAINER Primary cancer of left lower lobe of lung (HCC) Hypokalemia COMPREHENSIVE METABOLIC PANEL STAT 12/26/2024 7:39 AM CANINE SERVICE INSTRUCTOR TRAINER Primary cancer of left lower lobe of lung (HCC) PHOSPHORUS STAT 12/26/2024 7:39 AM CANINE SERVICE INSTRUCTOR TRAINER Primary cancer of left lower lobe of lung (HCC) Metastasis to bone (HCC) MAGNESIUM STAT 12/26/2024 7:39 AM CANINE SERVICE INSTRUCTOR TRAINER Primary cancer of left lower lobe of lung (HCC) Metastasis to bone (HCC) from Last 3 Months Results * XR Chest Pa Lateral 2 Views (03/06/2025 12:26 PM CDT) Anatomical Region Laterality Modality Body, Chest N/A Digital Radiogra phy 03/06/2025 2:28 PM CDT Impressions 03/06/2025 9:03 PM CDT Comparison is made to chest radiograph 12/12/2024. There is redemonstrated elevation of the left hemidiaphragm with mild bibasilar atelectasis. Scarring is again noted within the left upper lung. No pleural effusion or pneumothorax. The cardiomediastinal silhouette is normal. Dictated by: Get Stanley MD The radiology attending physician has personally reviewed this study, and had reviewed and/or edited this written report and agrees with it. Electronically signed by: Sav Ying M.D. Narrative 03/06/2025 9:03 PM CDT EXAMINATION: 2 view chest radiograph Procedure Note Sav Ying MD PhD - 03/06/2025 EXAMINATION: 2 view chest radiograph IMPRESSION: Comparison is made to chest radiograph 12/12/2024. There is redemonstrated elevation of the left hemidiaphragm with mild bibasilar atelectasis. Scarring is again noted within the left upper lung. No pleural effusion or pneumothorax. The cardiomediastinal silhouette is normal. Dictated by: Get Stanley MD The radiology attending physician has personally reviewed this study, and had reviewed and/or edited this written report and agrees with it. Electronically signed by: Sav Ying M.D. us Stan Meza MD IMG XR PROCEDURES Final R esult * (ABNORMAL) Oxycodone Confirmation, Urine (03/06/2025 10:48 AM CDT) Oxycodone Conf, Ur Confirmed Positive(A) CutOff 50 ng/mL Oxymorphone Conf, Ur Does Not Confirm CutOff 50 ng/mL [facility] Comment: Interpretive Data This test detects the presence or absence of drug compounds using LC Tandem mass spectrometry and is not intended to assess compliance with prescribed medications. While this test is highly specific, false positive and false negative results may occur in very rare circumstances. Contact the laboratory for consultation, if needed. Performance characteristics were determined by the [facility] in a manner consistent with CLIA requirement and has not been cleared or approved by the U.S. Food and Drug Administration. Current interpretive data was last revised 2021. Urine 03/06/2025 10:4 8 AM CDT 03/06/2025 11:14 AM CDT us Stan Meza MD LAB URINE ORDERABLES Yolette banda Result [facility] [place] [address] * (ABNORMAL) Drugs of Abuse Screen, Urine with Reflex Confirmation (03/06/2025 10:48 AM CDT) Pathologist [facility] Amphetamine, ur Not Detected CutOff 500ng/mL Comment: Interpretive Data - Amphetamines: Samples containing greater than 500 ng/mL d-methamphetamine or other cross-reacting amphetamine compounds are reported as positive. Amphetamine immunoassays are subject to significant false positive rates due to cross-reactivity of non-amphetamine drugs. Confirmatory testing required for definitive results. Current Interpretive Data was last reviewed 2023. Barbiturates, ur Not Detected CutOff 200ng/mL [facility] Comment: Interpretive Data - Barbiturates: Samples containing greater than 200 ng/mL secobarbital or other cross-reacting barbiturate compounds are reported as positive. False positive and false negative results are possible. Confirmatory testing required for definitive results. Current Interpretive Data was last reviewed 2023. Benzodiazepines, ur Not Detected CutOff 100ng/mL [facility] Comment: Interpretive Data - Benzodiazepines: Samples containing greater than 100 ng/mL nordiazepam or other cross-reacting compounds are reported as positive. False positive and false negative results are possible. Confirmatory testing required for definitive results. Current Interpretive Data was last reviewed 2023. Cannabinoids, ur Screen Positive, presumptive (A) CutOff 50 ng/mL [facility] Comment: Interpretive Data - Cannabinoids: Samples containing greater than 50 ng/mL delta-9 THC -COOH or other cross- reacting compounds are reported as positive. False positive and false negative results are possible. Confirmatory testing required for definitive results. Current Interpretive Data was last reviewed 2023. Cocaine, ur Not Detected CutOff 150ng/mL [facility] Comment: Interpretive Data - Cocaine: Samples containing greater than 150 ng/mL benzoylecgonine or other cross- reacting compounds are reported as positive. False positive and false negative results are possible. Confirmatory testing required for definitive results. Current Interpretive Data was last reviewed 2023. Fentanyl, Ur Not Detected CutOff 5 ng/mL [facility] Comment: Interpretive Data - Fentanyl: Samples containing greater than 5 ng/mL norfentanyl, fentanyl, or other cross-reacting fentanyl compounds are reported as positive. False positive and false negative results are possible. Confirmatory testing required for definitive results. Current Interpretive Data was last reviewed 2024. Methadone, ur Not Detected CutOff 300ng/mL [facility] Comment: Interpretive Data - Methadone: Samples containing greater than 300 ng/mL d,l-methadone or other cross-reacting compounds are reported as positive. False positive and false negative results are possible. Confirmatory testing required for definitive results. Current Interpretive Data was last reviewed 2023. Opiates, ur Screen Positive, presumptive (A) CutOff 300ng/mL [facility] Comment: Interpretive Data - Opiates: Samples containing greater than 300 ng/mL morphine or other cross-reacting compounds are reported as positive. False positive and false negative results are possible. Confirmatory testing required for definitive results. Current Interpretive Data was last reviewed 2023. Oxycodone, ur Screen Positive, presumptive (A) CutOff 100ng/mL [facility] Comment: Interpretive Data - Oxycodone: Samples containing greater than 100 ng/mL oxycodone or other cross-reacting compounds are reported as positive. False positive and false negative results are possible. Confirmatory testing required for definitive results. Current Interpretive Data was last reviewed 2023. Phencyclidine, ur Not Detected CutOff 25 ng/mL [facility] Comment: Interpretive Data - Phencyclidine: Samples containing greater than 25 ng/mL phencyclidine or other cross-reacting compounds are reported as positive. False positive and false negative results are possible. Confirmatory testing required for definitive results. Current Interpretive Data was last reviewed 2023. Urine Creatinine 83 mg/dL [facility] Comment: Interpretive Data Urine Creatinine: < 10 mg/dL is extremely dilute = or > 10 but < 20 mg/dL is dilute = or > 20 mg/dL is normal Current Interpretive Data was last revised on 2018. Urine 03/06/2025 10:4 8 AM CDT 03/06/2025 11:06 AM CDT Narrative [facility] - 03/06/2025 12:20 PM CDT Drug of Abuse screening is performed by immunoassay for medical purposes only. This is not to be used for Pain Management purposes. If Detected, confirmation testing will be performed for Amphetamines, Cocaine, Fentanyl, Methadone, Opiates, Oxycodone or Phencyclidine. us Stan Meza MD LAB URINE ORDERABLES Yolette banda Result [facility] Department [place] [address] * (ABNORMAL) Opiates Confirmation, Urine (03/06/2025 10:48 AM CDT) Component Value [id number]|2025-03-13 08:34:00|2025-03-13 08:33:00|XMS_ITS|BKG DAEMON|External Medical Summaries|[id number]|" Clinical Summary Created on: March 13, 2025 Josafat Calvo : 1960 Sex: Male Author Organization [facility] Address [address] [place] [address] Care Team Providers [place] Library Director Name Role Phone Matthew Mccabe MD Primary Care Prov ider Stan Meza MD Unavailable [phone] Allergies Active Allergy Reactions Criticality Noted Date [...] 2 (two) times a day with meals 024 Active eplerenone (INSPRA) 25 mg tablet Take 1 tablet (25 mg total) by mouth daily 024 Active omeprazole (PriLOSEC) 40 mg capsule Take 1 capsule (40 mg total) by mouth daily before breakfast 019 Active aspirin 81 mg chewable tablet Take 1 tablet (81 mg total) by mouth daily 023 Active albuterol HFA (PROVENTIL HFA,VENTOLIN HFA,PROAIR HFA) 90 mcg/actuation inhaler Inhale 2 puffs every 6 (six) hours as needed 019 Active alfuzosin ER (UROXATRAL) 10 mg 24 [...] 160-4.5 mcg/actuation inhaler Inhale 2 puffs daily Active cholecalcifero l (VITAMIN D-3) 2000 unit capsule Active lamoTRIgine (LaMICtal) 100 mg tablet Take 1 tablet (100 mg total) by mouth 2 (two) times a day Active latanoprost (XALATAN) 0.005 % ophthalmic solution 1 drop nightly Active losartan (COZAAR) 50 mg tablet Take 1 tablet (50 mg total) by mouth daily Active triamcinolone (KENALOG) 0.1 % cream Apply topically 2 (two) times a day Active varenicline tartrate (CHANTIX) 1 mg tablet Take 1 tablet (1 mg total) by mouth 2 (two) times a day Has but not currently taking Active nicotine polacrilex (NICORETTE) 4 mg gum Take 1 each (4 mg total) by mouth as needed Has but not currently using 022 Active nicotine (NICODERM CQ) [address] 1 patch on the skin daily Has but isn't currently using 018 Active mirtazapine (REMERON) 7.5 mg tablet daily Active dexAMETHasone (DECADRON) 4 mg tabletIndicati ons:Primary cancer of left lower lobe of lung (HCC) Take 8 mg (2 tabs) by mouth once on Day 2, then 8 mg (2 tabs) twice daily on Days 3 and 4. 10 tablet 3 024 Active apixaban (ELIQUIS) 5 mg tablet Take 1 tablet (5 mg total) by mouth 2 (two) times a day 60 tablet Active hydrOXYzine (VISTARIL) 100 mg capsule TAKE 1 CAPSULE (100MG) BY MOUTH EVERY 8 HOURS IF NEEDED FOR 30 DAYS Active LORazepam (ATIVAN) 0.5 mg tablet daily Active senna (SENOKOT) 8.6 mg tablet daily Active traMADoL (ULTRAM) 50 mg tablet every 12 hours Activ e calcium carbonate-amando min D3 1,250 mg (500 mg elemental)-400 unit tablet Take 1 tablet by mouth repeater operator before breakfast 30 tablet 3 024 Active ipratropium-al buteroL (DUO-NEB) 0.5-2.5 mg/3 mL nebulizer solution INHALE 3 ML VIA NEBULIZER FOUR TIMES DAILY NEEDED FOR SHORTNESS OF BREATH OR WHEEZING Active potassium chloride ER (KLOR-CON) 20 mEq CR tablet Take 1 tablet (20 mEq total) by mouth daily 14 tablet 025 Active ondansetron (ZOFRAN) 8 mg tabletIndicati ons:Primary cancer of left lower lobe of lung (HCC),Prophyla xis for chemotherapy-i nduced neutropenia Take 1 tablet (8 mg total) by mouth every 8 (eight) hours as needed for nausea or vomiting Use if prochlorperazine does not stop nausea 24 tablet 3 025 Active doxycycline 100 mg tablet Take 1 tablet/capsule (100 mg total) by mouth 2 (two) times a day 025 Active food supplemt, lactose-reduce d 0.05 gram- 1.5 kcal/mL liquid Take 1 Can by mouth daily 025 Active Senexon-S 8.6-50 mg TAKE 2 TABLETS BY MOUTH EVERY DAY 60 tablet 3 025 Active morphine ER (MS CONTIN) 30 mg 12 hr tablet Take 1 tablet (30 mg total) by mouth every 12 (twelve) hours 60 tablet 025 Active oxyCODONE (ROXICODONE) 5 mg immediate release tabletIndicati ons:Pain,cance r related pain Take 1-2 tablets (5-10 mg total) by mouth every 4 (four) hours as needed for pain 120 tablet 025 Active cefdinir (OMNICEF) 300 mg capsule Take 1 capsule (300 mg total) by mouth daily 025 Active tiotropium (SPIRIVA) 18 mcg per inhalation capsule Place 1 puff (1 capsule total) into inhaler and inhale as needed 025 Active senna-docusate (PERICOLACE) 8.6-50 mgIndications: constipation Take 2 tablets by mouth daily 60 tablet 3 024 2024 Discontinued oxyCODONE (ROXICODONE) 5 mg immediate release tabletIndicati ons:Pain,cance r related pain Take 1-2 tablets (5-10 mg total) by mouth every 4 (four) hours as needed for pain 120 tablet 025 2024 Discontinued(R eorder) morphine ER (MS CONTIN) 30 mg 12 hr tablet Take 1 tablet (30 mg total) by mouth every 12 (twelve) hours 60 tablet 025 2024 Discontinued(R eorder) predniSONE (DELTASONE) 20 mg tablet Take 3 tablets (60 mg) by mouth daily with breakfast for 7 days, THEN 2 tablets (40 mg) daily with breakfast for 7 days. 35 tablet 025 2024 Active Problems Problem Noted Date Diagnosed Date Hypokalemia 11/14/2024 Metastasis to bone 11/06/2024 Cancer related pain 08/15/2024 Prophylaxis for chemotherapy-induced neutropenia 08/01/2024 Primary cancer of left lower lobe of lung 2023 Cancer Staging:Clinical:Stage IVB(pM1c) - Unsigned Localized enlarged lymph nodes 05/28/2024 Hilar mass 05/28/2024 Encounters Date Type Department Care Team Description 03/06/2025 12:15 PM CDT - 03/06/2025 11:59 PM CDT Hospital Encounter [facility] - Diagnostic Imaging [address] [place] [address] Floor 8 [place] [address] Primary cancer of left lower lobe of lung (HCC) Discharge Disposition: Discharge to home or self care 03/06/2025 11:20 AM CDT Office Visit [facility] [address] [place] [address] Floor 5 [place] [phone] Stan Meza MD Primary cancer of left lower lobe of lung (HCC) (Primary Dx) 03/06/2025 10:30 AM CDT Lab [facility] - Lab Collection [address] [place] [address] Floor 5 [place] [address] Primary cancer of left lower lobe of lung (HCC) 03/06/2025 10:15 AM CDT Lab [facility] Lab [address] [place] [address] Floor 5 [place] [address] Primary cancer of left lower lobe of lung (HCC) 03/06/2025 Social Work [facility] [address] [place] [address] 5 [place] [address] Sarah Brunner, BUSINESS SUPPORT ADMINISTRATOR 03/03/2025 Documentation [facility] [address] [place] [address] 5 [place] [address] Sarah Brunner, BUSINESS SUPPORT ADMINISTRATOR 02/28/2025 Telephone [facility] [address] [place] [phone] Maddy Freire, ALYX 02/28/2025 Telephone [facility] [address] [place] [phone] Maddy Freire, ALYX 02/26/2025 Telephone [facility] [address] [place] [phone] Sasha Hernandes RN 02/25/2025 Orders Only [facility] [address] [place] [phone] Sasha Hernandes RN Primary cancer of left lower lobe of lung (HCC) (Primary Dx) 02/21/2025 Orders Only [facility] [address] [place] [phone] Sasha Hernandes RN Hyperthyroidism (Primary Dx) 02/20/2025 9:30 AM CDT Infusion [facility] - Infusion [address] [place] [address] Primary cancer of left lower lobe of lung (HCC) (Primary Dx) 02/20/2025 9:20 AM CDT Office Visit [facility] [address] [place] [address] 5 [place] [address] Stan Meza MD Primary cancer of left lower lobe of lung (HCC) (Primary Dx) 02/20/2025 8:45 AM CDT Lab [facility] - Lab Collection [address] [place] [address] 5 [place] [address] Primary cancer of left lower lobe of lung (HCC); Hypokalemia 02/20/2025 7:11 AM CDT - 02/20/2025 11:59 PM CDT Hospital Encounter [facility] [address] [place] [phone] Stan Meza MD Primary cancer of left lower lobe of lung (HCC); Metastasis to bone (HCC) Discharge Disposition: Discharge to home or self care 02/20/2025 Documentation [facility] [address] [place] [address] Dagmar Pickard, LARRY 02/19/2025 Orders Only [facility] [address] [place] [phone] Sasha Hernandes RN Primary cancer of left lower lobe of lung (HCC) (Primary Dx) 02/12/2025 Social Work [facility] [address] [place] [phone] Sarah Brunner, BUSINESS SUPPORT ADMINISTRATOR 02/10/2025 Social Work [facility] [address] [place] [phone] Sarah Brunner, BUSINESS SUPPORT ADMINISTRATOR 01/30/2025 12:00 PM CDT Infusion [facility] - Infusion [address] [place] [address] Metastasis to bone (HCC) (Primary Dx); Primary cancer of left lower lobe of lung (HCC); Hypokalemia 01/30/2025 11:00 AM CDT Office Visit [facility] [address] [place] [phone] Shari Quintana NP Primary cancer of left lower lobe of lung (HCC) (Primary Dx); Metastasis to bone (HCC); Hypokalemia 01/30/2025 10:00 AM CDT Lab [facility] - Lab Collection [address] [place] [address] Primary cancer of left lower lobe of lung (HCC); Hypokalemia 01/30/2025 Documentation [facility] [address] [place] [address] Dagmar Pickard, RD 01/30/2025 Telephone [facility] Floor 5 [place] [address] Cindy Montelongo, ALYX 01/27/2025 8:11 PM CDT - 01/27/2025 11:59 PM CDT Hospital Encounter [facility] [address] [place] [phone] Diagnosis unknown Discharge Disposition: Discharge to home or self care 01/23/2025 Telephone [facility] [address] [place] [address] Dagmar Pickard, RD 01/22/2025 Social Work [facility] [address] [place] [address] Floor 5 [place] [address] Sarah Brunner, BUSINESS SUPPORT ADMINISTRATOR 01/22/2025 Telephone [facility] [address] [place] [address] Floor 5 [place] [address] Sasha Hernandes RN 01/16/2025 Social Work [facility] [address] [place] [address] Floor 5 [place] [address] Sarah Brunner, BUSINESS SUPPORT ADMINISTRATOR 01/09/2025 10:00 AM CDT Infusion [facility] - Infusion [address] [place] [address] Floor 5 [place] [address] 01/09/2025 8:30 AM CDT Infusion [facility] - Infusion [address] [place] [address] Floor 5 [place] [address] Hypokalemia (Primary Dx); Primary cancer of left lower lobe of lung (HCC) 01/09/2025 7:30 AM CDT Lab [facility] - Lab Collection [address] [place] [address] Floor 5 [place] [address] Primary cancer of left lower lobe of lung (HCC); Hypokalemia 01/09/2025 Orders Only [facility] [address] [place] [address] Floor 5 [place] [address] Maddy Freire, ALYX 01/08/2025 Social Work [facility] [address] [place] [address] Floor 5 [place] [address] Sarah Brunner, BUSINESS SUPPORT ADMINISTRATOR 01/03/2025 Documentation [facility] [address] [place] [address] Floor [address] [place] [address] Sarah Brunner, BUSINESS SUPPORT ADMINISTRATOR 01/02/2025 Social Work [facility] [address] [place] [address] 5 [place] [address] Sarah Brunner, BUSINESS SUPPORT ADMINISTRATOR 01/02/2025 Telephone [facility] [address] [place] [address] Dagmar Pickard, LARRY 01/02/2025 Orders Only [facility] [address] [place] [phone] Cindy Montelongo RN Primary cancer of left lower lobe of lung (HCC) (Primary Dx); Hypokalemia 12/30/2024 Social Work [facility] [address] [place] [address] 5 [place] [address] Sarah Brunner, BUSINESS SUPPORT ADMINISTRATOR 12/30/2024 Telephone [facility] [address] [place] [phone] Angelika Curran CMA 12/26/2024 9:30 AM CANINE SERVICE INSTRUCTOR TRAINER Infusion [facility] - Infusion [address] [place] [address] Floor 6 [place] [address] Metastasis to bone (HCC) (Primary Dx); Primary cancer of left lower lobe of lung (HCC); Hypokalemia 12/26/2024 8:40 AM CANINE SERVICE INSTRUCTOR TRAINER Office Visit [facility] [address] [place] [address] Floor [address] [place] [address] Stan Meza MD Primary cancer of left lower lobe of lung (HCC) (Primary Dx); Hypokalemia 12/26/2024 7:45 AM CANINE SERVICE INSTRUCTOR TRAINER Lab [facility] - Lab Collection [address] [place] [address] Floor 5 [place] [address] Primary cancer of left lower lobe of lung (HCC); Hypokalemia; Metastasis to bone (HCC) 12/20/2024 Documentation [facility] Floor [address] [place] [address] Sarah Brunner LCSW 12/19/2024 Telephone [facility] Floor [address] [place] [address] Sasha Hernandes RN 12/18/2024 Telephone [facility] 5 [place] [address] Sasha Hernandes RN from Last 3 Months Immunizations Immunization Administration Dates Next Due Influenza, Quadrivalent, Hig h Dose, Preservative Free, Intrr 08/23/2024 Influenza, Quadrivalent, Rec ombinant, Egg Free, Preservative Free, Intramuscular 07/29/2022,07/26/2021 Influenza, Quadrivalent, Spl it, Intramuscular 07/17/2017,09/29/2016 Influenza, Quadrivalent, Spl it, Preservative Free, Intramuscular 09/29/2023,08/04/2020,07/11/2019,08/09,11/02/2015 Influenza, Unspecified 08/13/2020 [employer] SARS-CoV-2 Vaccination 01/17/2021 Pneumococcal Conjugate Pcv20 [...] on file Legal Sex Male 6:04 PM CANINE SERVICE INSTRUCTOR TRAINER Gender Identity Not on file Sexual Orientation Not on file Obstetrics History Last Filed Vital Signs Vital Sign Reading Time Taken Comments Blood Pressure 110/73 03/06/2025 11:00 AM CDT Pulse 108 03/06/2025 11:00 AM CDT Temperature 36.7 C (98 F) 02/20/2025 8:32 AM CDT Respiratory Rate 20 03/06/2025 11:0 0 AM CDT Oxygen Saturation 97% 03/06/2025 11: 00 AM CDT with 3 liters of O2 Inhaled Oxygen Concentration - - Weight 83.7 kg (184 lb 9.6 oz) 03/06/2025 11:00 AM CDT Height 175.3 cm (5' 9 ) 12/12/2024 8:02 AM CANINE SERVICE INSTRUCTOR TRAINER Body Mass Index 27.26 12/12/2024 8:02 AM CANINE SERVICE INSTRUCTOR TRAINER Plan of Treatment Health Maintenance Due Date [...] VIEWS Schedule Routine, Read Routine (OP Routine) 03/06/2025 12:26 PM CDT Primary cancer of left lower lobe of lung (HCC) OXYCODONE CONFIRMATION, URINE STAT 03/06/2025 10:48 AM CDT DRUGS OF ABUSE SCREEN, URINE WITH REFLEX CONFIRMATION STAT 03/06/2025 10:48 AM CDT Primary cancer of left lower lobe of lung (HCC) OPIATES CONFIRMATION MS, URINE STAT 03/06/2025 10:48 AM CDT EGFR STAT 03/06/2025 10:46 AM CDT Primary cancer of left lower lobe of lung (HCC) COMPREHENSIVE METABOLIC PANEL STAT 03/06/2025 10:46 AM CDT Primary cancer of left lower lobe of lung (HCC) DIFFERENTIAL AUTO Routine 03/06/2025 10: 41 AM CDT Primary cancer of left lower lobe of lung (HCC) CBC WITH AUTO DIFFERENTIAL Routine 03/06/2025 10:41 AM CDT Primary cancer of left lower lobe of lung (HCC) T3, FREE Routine 02/20/2025 8:15 AM CDT [...] (HCC) Hypokalemia EGFR STAT 12/26/2024 7:39 AM CANINE SERVICE INSTRUCTOR TRAINER Primary cancer of left lower lobe of lung (HCC) DIFFERENTIAL AUTO STAT 12/26/2024 7:3 9 AM CANINE SERVICE INSTRUCTOR TRAINER Primary cancer of left lower lobe of lung (HCC) Hypokalemia CBC WITH AUTO DIFFERENTIAL STAT 12/26/2024 7:39 AM CANINE SERVICE INSTRUCTOR TRAINER Primary cancer of left lower lobe of lung (HCC) Hypokalemia COMPREHENSIVE METABOLIC PANEL STAT 12/26/2024 7:39 AM CANINE SERVICE INSTRUCTOR TRAINER Primary cancer of left lower lobe of lung (HCC) PHOSPHORUS STAT 12/26/2024 7:39 AM CANINE SERVICE INSTRUCTOR TRAINER Primary cancer of left lower lobe of lung (HCC) Metastasis to bone (HCC) MAGNESIUM STAT 12/26/2024 7:39 AM CANINE SERVICE INSTRUCTOR TRAINER Primary cancer of left lower lobe of lung (HCC) Metastasis to bone (HCC) from Last 3 Months Results * XR Chest Pa Lateral 2 Views (03/06/2025 12:26 PM CDT) Anatomical Region Laterality Modality Body, Chest N/A Digital Radiogra phy 03/06/2025 2:28 PM CDT Impressions 03/06/2025 9:03 PM CDT Comparison is made to chest radiograph 12/12/2024. There is redemonstrated elevation of the left hemidiaphragm with mild bibasilar atelectasis. Scarring is again noted within the left upper lung. No pleural effusion or pneumothorax. The cardiomediastinal silhouette is normal. Dictated by: Get Stanley MD The radiology attending physician has personally reviewed this study, and had reviewed and/or edited this written report and agrees with it. Electronically signed by: Sav Ying M.D. Narrative 03/06/2025 9:03 PM CDT EXAMINATION: 2 view chest radiograph Procedure Note Sav Ying MD PhD - 03/06/2025 EXAMINATION: 2 view chest radiograph IMPRESSION: Comparison is made to chest radiograph 12/12/2024. There is redemonstrated elevation of the left hemidiaphragm with mild bibasilar atelectasis. Scarring is again noted within the left upper lung. No pleural effusion or pneumothorax. The cardiomediastinal silhouette is normal. Dictated by: Get Stanley MD The radiology attending physician has personally reviewed this study, and had reviewed and/or edited this written report and agrees with it. Electronically signed by: Sav Ying M.D. Stan Meza MD IMG XR PROCEDURES Final R esult * (ABNORMAL) Oxycodone Confirmation, Urine (03/06/2025 10:48 AM CDT) [facility] Oxycodone Conf, Ur Confirmed Positive(A) CutOff 50 ng/mL Oxymorphone Conf, Ur Does Not Confirm CutOff 50 ng/mL [facility] Comment: Interpretive Data This test detects the presence or absence of drug compounds using LC Tandem mass spectrometry and is not intended to assess compliance with prescribed medications. While this test is highly specific, false positive and false negative results may occur in very rare circumstances. Contact the laboratory for consultation, if needed. Performance characteristics were determined by the [facility] in a manner consistent with CLIA requirement and has not been cleared or approved by the U.S. Food and Drug Administration. Current interpretive data was last revised 2021. Urine 03/06/2025 10:4 8 AM CDT 03/06/2025 11:14 AM CDT Stan Meza MD LAB URINE ORDERABLES Yolette banda Result [facility] Department [place] [address] * (ABNORMAL) Drugs of Abuse Screen, Urine with Reflex Confirmation (03/06/2025 10:48 AM CDT) Amphetamine, ur Not Detected CutOff 500ng/mL Comment: Interpretive Data - Amphetamines: Samples containing greater than 500 ng/mL d-methamphetamine or other cross-reacting amphetamine compounds are reported as positive. Amphetamine immunoassays are subject to significant false positive rates due to cross-reactivity of non-amphetamine drugs. Confirmatory testing required for definitive results. Current Interpretive Data was last reviewed 2023. Barbiturates, ur Not Detected CutOff 200ng/mL [facility] Comment: Interpretive Data - Barbiturates: Samples containing greater than 200 ng/mL secobarbital or other cross-reacting barbiturate compounds are reported as positive. False positive and false negative results are possible. Confirmatory testing required for definitive results. Current Interpretive Data was last reviewed 2023. Benzodiazepines, ur Not Detected CutOff 100ng/mL [facility] Comment: Interpretive Data - Benzodiazepines: Samples containing greater than 100 ng/mL nordiazepam or other cross-reacting compounds are reported as positive. False positive and false negative results are possible. Confirmatory testing required for definitive results. Current Interpretive Data was last reviewed 2023. Cannabinoids, ur Screen Positive, presumptive (A) CutOff 50 ng/mL [facility] Comment: Interpretive Data - Cannabinoids: Samples containing greater than 50 ng/mL delta-9 THC -COOH or other cross- reacting compounds are reported as positive. False positive and false negative results are possible. Confirmatory testing required for definitive results. Current Interpretive Data was last reviewed 2023. Cocaine, ur Not Detected CutOff 150ng/mL [facility] Comment: Interpretive Data - Cocaine: Samples containing greater than 150 ng/mL benzoylecgonine or other cross- reacting compounds are reported as positive. False positive and false negative results are possible. Confirmatory testing required for definitive results. Current Interpretive Data was last reviewed 2023. Fentanyl, Ur Not Detected CutOff 5 ng/mL [facility] Comment: Interpretive Data - Fentanyl: Samples containing greater than 5 ng/mL norfentanyl, fentanyl, or other
--- NOTE | 2025-03-13 08:39 | EST_ITS ---
"Patient Info Name: Josafat Calvo Age: 64 years : 1960 Gender: Male Ht: 69 in Wt: 187 lbs BSA: 2.05 m2 Exam Date: 03/13/2025 8:39 AM Patient Status: O Admit Date: 03/13/2025 Exam Type: CA stress mirna w NM A regadenoson stress test was performed. Staff Referring Physician: Ian Lopez DO Attending Provider: Ian Lopez DO Exercise Technologist: Jayne Adler Exercise Physician: Ian Lopez DO Summary 1. 1. Negative lexiscan stress test for ischemic ST changes by ECG criteria. 2. 2. Stable hemodynamics throughout the test. 3. 3. Nuclear scan to follow and will be reported separately. Please correlate with it. 4. 4. Patient informed of the above results. Protocol: Lexiscan Stress ECG Details Stage: REST Duration (min): 2 min : 12 sec HR (bpm): 81 SBP (mmHg): 131 DBP (mmHg): 89 Stage: REST Duration (min): 4 min : 51 sec HR (bpm): 81 SBP (mmHg): 131 DBP (mmHg): 89 Stage: REST Duration (min): 5 min : 11 sec HR (bpm): 80 SBP (mmHg): 131 DBP (mmHg): 89 Stage: REST Duration (min): 5 min : 48 sec HR (bpm): 84 SBP (mmHg): 131 DBP (mmHg): 89 Stage: STAGE 1 Duration (min): 1 min : 0 sec HR (bpm): 82 SBP (mmHg): 130 DBP (mmHg): 91 Stage: RECOVERY Duration (min): 1 min : 0 sec HR (bpm): 86 SBP (mmHg): 167 DBP (mmHg): 92 Stage: RECOVERY Duration (min): 2 min : 0 sec HR (bpm): 83 SBP (mmHg): 167 DBP (mmHg): 92 Stage: RECOVERY Duration (min): 3 min : 0 sec HR (bpm): 83 SBP (mmHg): 167 DBP (mmHg): 92 Stage: RECOVERY Duration (min): 4 min : 0 sec HR (bpm): 80 SBP (mmHg): 127 DBP (mmHg): 79 Stage: RECOVERY Duration (min): 4 min : 17 sec HR (bpm): 85 SBP (mmHg): 127 DBP (mmHg): 79 Rest HR: 84 bpm Peak HR: 90 bpm Rest Sys BP: 131 mmHg Peak Sys BP: 167 mmHg Max Pred HR: 157 bpm % Max Pred HR: 57 % Target HR: 133 bpm Max RPP: 15,030 bpm*mmHg Termination Reason: Completed protocol Cardiac Symptoms: Shortness of breath Total Time: 1 min : 0 sec Rest Tena BP: 89 mmHg Peak Tena BP: 92 mmHg Total Dose: 0.4 mg Resting ECG Sinus rhythm. Stress ECG No ST changes. Arrhythmias None. Report Signatures [file] YAVHPEnpXOFYPwsCuJQSKpkRLMhzZLEZVexOmPEPT5pB4FjjRTGUOaytaJYJTHiLJRbpEE6fCXDFMH9aTJFIPQ1dtOOBWY9jEHZeM X1Ocea1k0xme6IfYlYGavLDTHqsNEBLGd1uZzqGJ8TRRFhC1OLSV1NALRjI9RUOD2JUIBpA1GULE4GRRXcI5PQWI8WKUCxU3EEAZ2 WVTParNBpOxrM1WfjP6fXiWl4gRXuKQpN0PUFJyTLG6xbFNvfAyrpwV4juezdK2Axq7aQ8X9e5Bo5Mrb2J89SZCbC1qYXHRS8b0RS EMzu6DCRXgm6ZqMDpRuFcTZvPTXzGJcDFtIQIMJMtjVUZEle+ho1MYWUNdQ4aHkRXT8U0QBRBJyIaRjqnSmpNBWJNGYYQwCQZeYSu kTBsAUxivbLoU2jjzrD9g9XpMkmhehVrS3rzohU1r1XcSjnpvcWsL8ikbrG1v8QdUufbldReP1srjNu/hPNNcDf9lOdST97K5tIAM LgD/FJKQtR5ojV0ZnWCYOK5VzZkPYLVx3eVArqa4as3y9qZGsac2mr8c3uULbnq7cb0d5nYMbzu3eo0v5tNZvvn5dd8e3eRTxoz0i v2w6iMZuux1ru6o6mD6lk5I9I4Js6SwW1PctXsz9PzhslsbDvcxKzs1WxxRmf43skIOc8X8ulbN0L7A1sKWuKh/fqFHGn1QWPV7Jp elBXDeqNrBEN5xxh1NHFLNJADNOFvF2xGPPTwfS4avVnfzugXHb0stxYn2vviLtxlreVBq8kfHGa1ymwOcbzxpPXjisfEHh6bfjRq 7aqfFmwalzJHg4mhYD1R+VsopEJydivKVu1bhvVd1vmiMnuBzFZ5pdjZEmgjtmkogM0qbG/Wd/dZfuHoC7AeHRUjIMDWwryqULK7q kE/PSgkuOXsemTMPKQyHUOSZQMYUh0ioOCAzbVydFVrjPEoaSyqMFbhKsdYLryMXpHVgjYYJqWdbTICXJfd8XQAJab67CSYRz86gF WFIf7mtCZZabVxkZIdvVGyfChpJCxfKdaHOtgB [id number]||2025-03-13 11:53:00|NM_ITS|FROHNERTP|Imaging|[id number]|"EXAMINATION: NM mirna stress w perfusion DATE: 03/13/2025 11:09 INDICATION: Heart disease TECHNIQUE: Rest images were obtained following intravenous administration of 11.0 mCi Tc99m tetrofosm in (Myoview). The patient was infused intravenously with Lexiscan (Regadenoson). Then, 32.0 mCi Tc99m tetrofosmin (Myoview) was administered intravenously, and stress images were obtained. Data was alee nstructed into short axis and horizontal and vertical long axis SPECT images. Gated SPECT images were also obtained. COMPARISON: None. FINDINGS: There is no definite reversible or fixed perfusion abnormality to suggest ischemia or infar ction. There is normal left ventricular chamber size, wall motion and ejection fraction. Left ventr icular ejection fraction measures 62%. IMPRESSION: 1. Normal myocardial perfusion at rest and during stress. 2. Left ventricular ejection fraction measuring 62%. Reviewed, dictated and finalized at location A. IMPRESSION: 1. Normal myocardial perfusion at rest and during stress. 2. Left ventricular ejection fraction measuring 62%. "
== END 2025-03-13 08:30 | disposition home or self-care (01) ==
PROVIDERS: PCP Family Medicine Adolescent Medicine; Visit Provider Internal Medicine Cardiovascular Disease
DX: I51.9 Heart disease, unspecified (principal)
CPT/HCPCS: 78452; 93017; A9502; J2785

== ENCOUNTER 2025-09-22 09:52 | Emergency (ER) | payer OTHER, SELFPAY ==
--- OUTSIDE RECORDS SUMMARY | 2008-05-10 18:00 | XMS_ITS | Continuity of Care Document ---
Author Organization [facility] Address [address] [place] [address] Phone Care Team Providers Care Pen Or Pencil Assembly Machine Operator Name Role Phone Unavailable Unavailable Unavailable Medications [...] VST EST PT LOW TO MOD SEVERITY [facility] , [address], [place], [place], [address], tel:[phone] Group Home OTHER SPECFD COUNSELING 8 No Information [facility] , [address], [place], [place], [address], [place] tel:[phone] [facility] No Information 8 No Information OFFICE CONSULT, 15 MIN, 3 RODRIGUEZ COMPS: PROB FOCUS HX; PROB FOCUS EXAM; [facility] , [address], [place], [place], [address], [place] tel:[phone] [facility] COUNSELING NOS 8 No Information HOME VST EST PT LOW TO MOD SEVERITY [facility] , [address], [place], [place], [address], [place] tel:[phone] Group Home OTHER SPECFD COUNSELING 8 No Information HOME VST NEW PT HI SEVERITY [facility] , [address], [place], [place], [address], [place] tel:[phone] Group Home DRUG ABUSE NEC-UNSPECDEPRES SIVE DISORDER NECHYPERTENSION NOS [address] [facility] , [address], [place], [place], [address], [place] tel:[phone] [facility] DENTAL EXAMINATION 8 No Information Family History Family Member Type Diagnosis Age At Onset No Information Payers Payer name Insurance type Covered green party ID Authoriza tion(s) No Information Social History [...]
[2025-09-22] VITALS (11 sets, daily range): BP systolic 102–125; BP diastolic 66–81; PULSE 91–106; RESP 18–23; TEMP 36.9; O2SAT 99–100
--- NOTE | 2025-09-22 10:20 | ED.GENADULT ---
HPI - General Adult General Chief complaint: Nausea/Vomiting/Diarrhea Stated complaint: nausea Time Seen by Provider: 09/22/25 09:56 History of Present Illness HPI narrative: 64-year-old male undergoing chemotherapy for stage IV lung cancer. Patient last had his chemotherapy on and began having nausea and vomiting on Monday. Patient follows up with oncology at [place]. Patient states he has had some difficulty swallowing and does have some sore throat. Patient was concern for dehydration. Patient did contact his oncologist and he was referred to the emergency department for IV fluids. Patient denies any other pain or complaint. Related Data Home Medications ?Medication ?Instructions ?Recorded ?Confirmed ?Last Taken ?Type latanoprost 0.005 % eye drops 1 drp ophthalmic (eye) DAILY 05/05/20 03/25/25 Unknown History alfuzosin 10 mg tablet,extended 10 mg PO DAILY 12/12/23 03/25/25 Unknown History release 24 hr aspirin 81 mg tablet,delayed 81 mg PO DAILY 12/12/23 03/25/25 Unknown History release (Adult Aspirin Regimen) buspirone 7.5 mg tablet 10 mg PO BID 12/12/23 03/25/25 Unknown History carvedilol 12.5 mg tablet 12.5 mg PO Q12H 12/12/23 03/25/25 Unknown History hydroxyzine pamoate 100 mg capsule 25 mg PO Q12H 12/12/23 03/25/25 Unknown History lamotrigine 100 mg tablet 100 mg PO DAILY 12/12/23 03/25/25 Unknown History ziprasidone HCl 80 mg capsule 80 mg PO BID 12/12/23 03/25/25 Unknown History morphine 30 mg tablet,extended 30 mg PO Q12H PRN pain 09/13/24 03/25/25 Unknown History release ondansetron HCl 8 mg tablet 8 mg PO BID PRN Nausea And Vomiting 09/13/24 03/25/25 Unknown History oxycodone 5 mg tablet 10 mg PO Q4H PRN Pain (Scale Score 09/13/24 03/25/25 Unknown History 7-10) Allergies Allergy/AdvReac Type Severity Reaction Status Date / Time lisinopril Allergy Severe ANGIOEDEMA Verified 03/25/25 10:28 Penicillins Allergy Unknown Swelling Verified 03/25/25 10:28 Review of Systems Review of Systems: All systems reviewed & are unremarkable except as noted in HPI and below [facility] Past Medical History Medical History BMI 28.0-28.9,adult Hyponatremia Mitral regurgitation Systolic dysfunction Diastolic dysfunction (04/2024) PAF (paroxysmal atrial fibrillation) Cardiomyopathy Arthritis Bronchitis Asthma COPD (chronic obstructive pulmonary disease) HTN (hypertension) Glaucoma Surgical History Surgical History History of knee replacement procedure of right knee Family History Family History Father Alcoholism Heart problem Hypertension Sibling Alcoholism Cancer Hypertension Mother Cancer Hypertension Grandparent Diabetes mellitus Heart problem Hypertension Sibling Cancer Hypertension Social History Social History Smoking packs per day: 0.5 Smoking cigarettes per day: 10.0 Years smoked: 40 Smoking pack-years: 20.00 Smoking status: Current every day smoker Second hand tobacco smoke exposure: Yes Alcohol intake: never Substance use: current Substance use type: marijuana Other substance usage details: 4 x wk Do You Feel Safe in your Home?: Yes Lack of Transportation: YES Lack of Food: Never True Current Housing: I Have Housing Concerned About Future Housing: No Difficulty Paying Gas/Electric Bills: No Difficulty Paying for Meds: No Currently Unemployed: No Education: Associate Degree Difficulty w/ Childcare or Family Care: No Living arrangements: alone Occupation/Education: retired Additional occupation/education comments: [employer] Gender identity (if verbalized by the patient): Male Spiritual care concerns: No Exam Narrative: APPEARANCE: Well appearing, no pain, no distress, well-nourished. HEAD: normocephalic, atraumatic. EYES: PERRLA/EOMI, conjunctivae clear. NOSE: Normal no drainage EARS:TMS clear with good light reflex. THROAT: Pharynx clear, no exudate. NECK: Supple. No adenopathy, no masses. RESPIRATORY: Airway patent, respirations nonlabored. Clear to auscultation bilaterally, no rales, rhonchi, wheezing. CARDIOVASCULAR: Regular rate and rhythm without murmurs rubs or gallops. ABDOMINAL: Soft, nontender, nondistended, normal bowel sounds MUSCULOSKELETAL: Moves all extremities. Strength/ROM intact, No edema, No calf tenderness. NEURO: Alert. Cranial nerves II through XII intact. Good gait. Good coordination SKIN: Warm, dry. Normal Color Course Vital Signs Vital signs: Vital Signs Temperature 98.5 F 09/22/25 09:59 Pulse Rate 94 09/22/25 09:59 Respiratory Rate 20 09/22/25 09:59 Blood Pressure 108/79 09/22/25 09:59 Pulse Oximetry 100 09/22/25 09:59 Oxygen Delivery Nasal Cannula 09/22/25 09:59 Oxygen Flow Rate 3 09/22/25 09:59 Temperature 98.5 F 09/22/25 09:59 Pulse Rate 97 09/22/25 12:32 Respiratory Rate 20 09/22/25 12:32 Blood Pressure 117/77 09/22/25 12:32 Pulse Oximetry 99 09/22/25 12:32 Oxygen Delivery Nasal Cannula 09/22/25 09:59 Oxygen Flow Rate 3 09/22/25 09:59 Medical Decision Making [facility] Narrative Medical decision making narrative: 64-year-old male presents emergency department for evaluation for concern for dehydration. Patient is currently afebrile but does have a leukocytosis of 14.7 hemoglobin of 8.8. This is similar to his baseline. Patient's sodium was 129. Patient's creatinine was 0.48. Patient's strep test was negative. Patient was offered a CT scan to evaluate for the difficulty swallowing. Well as exam was well-appearing he did have a muffled voice. After IV fluids and dexamethasone patient states he felt significantly improved and was declining CT scan. Patient prefers to have outpatient follow-up. Patient states he does have follow-up with his oncologist pending. Patient was educated on reasons to return to the emergency department. All questions concerns were addressed. Differential Diagnosis Differential Diagnosis: COVID, RSV influenza, dehydration, neutropenia Vital Signs Vital Signs: Vital Signs Temperature 98.5 F 09/22/25 09:59 Pulse Rate 94 09/22/25 09:59 Respiratory Rate 20 09/22/25 09:59 Blood Pressure 108/79 09/22/25 09:59 Pulse Oximetry 100 09/22/25 09:59 Oxygen Delivery Nasal Cannula 09/22/25 09:59 Oxygen Flow Rate 3 09/22/25 09:59 Temperature 98.5 F 09/22/25 09:59 Pulse Rate 97 09/22/25 12:32 Respiratory Rate 20 09/22/25 12:32 Blood Pressure 117/77 09/22/25 12:32 Pulse Oximetry 99 09/22/25 12:32 Oxygen Delivery Nasal Cannula 09/22/25 09:59 Oxygen Flow Rate 3 09/22/25 09:59 Lab Data Lab results reviewed: Yes I reviewed the patient's lab results. 09/22/25 11:30 09/22/25 11:30 Labs: Lab Results 09/22/25 Range/Units 11:30 WBC 14.7 H (4.5-10.0) K/mm3 RBC 3.11 L (4.6-6.20) M/mm3 Hgb 8.8 L (14.0-18.0) g/dL Hct 27.0 L (42.0-52.0) % MCV 86.8 (80-100) fl MCH 28.3 (26-34) pg MCHC 32.6 (32-36) g/dl RDW 17.4 H (11.5-14.5) % Plt Count 101 L D (150-375) k/mm3 MPV 10.2 (7.4-10.4) fl Immature Gran % (Auto) Not Reportable Neut % (Auto) Not Reportable Lymph % (Auto) Not Reportable Towns % (Auto) Not Reportable Eos % (Auto) Not Reportable Baso % (Auto) Not Reportable Lymph # (Auto) Not Reportable Towns # (Auto) Not Reportable Eos # (Auto) Not Reportable Baso # (Auto) Not Reportable Abs Immat Gran (auto) Not Reportable Absolute Neuts (auto) Not Reportable Absolute Nucleated RBC Not Reportable Total Counted 100 Neutrophils % (Manual) 84 H (46-73) % Band Neutrophils % 8 H (0-6) % Lymphocytes % (Manual) 3.0 L (18-44) % Monocytes % (Manual) 2 L (3-9) % Basophils % (Manual) 1 (0-1) % Metamyelocytes % 2 % Nucleated RBC % Not Reportable Abs Neuts (Manual) 13.52 H (1.3-6.7) K/mm3 Abs Lymphs (Manual) 0.44 L (1.1-4.5) K/mm3 Abs Monocytes (Manual) 0.29 (0.1-0.90) K/mm3 Abs Basophils (Manual) 0.14 H (0.0-0.1) K/mm3 Platelet Estimate Slightly decreased (Adequate) Hypochromasia 1+ Anisocytosis 1+ Target Cells Occasional Schistocytes None seen Sodium 129 L (137-145) mmol/L Potassium 4.0 (3.4-5.0) mmol/L Chloride 98 (98-107) mmol/L Carbon Dioxide 27 (22-30) mmol/L Anion Gap 4 (4-12) mmol/L BUN 9 D (9-20) mg/dL Creatinine 0.48 L (0.7-1.3) mg/dL Estim Creat Clear Calc 131 ml/min Estimated GFR > 60 (59 - ) Glucose 95 (65-110) mg/dL Calcium 8.5 (8.4-10.2) mg/dL Total Bilirubin 0.7 (0.2-1.3) mg/dL AST 20 (17-59) U/L ALT 13 (6-50) U/L Alkaline Phosphatase 123 (38-126) U/L Total Protein 6.2 L (6.3-8.2) g/dL Albumin 3.3 L (3.5-5.1) g/dL Group A Strep (PCR) Not detected (Negative) Discharge Plan Discharge Clinical Impression: Acute sore throat, Acute dehydration Patient Disposition: Home Condition: Stable Instructions: Antibiotic Form Additional Instructions: You were offered additional workup for your sore throat but you declined and preferred to have outpatient follow-up. Continue to follow-up with your oncologist. If you have any worsening symptoms then please call or return to the emergency department. Patient Language: Croatian Prescriptions: No Action omeprazole 40 mg capsule,delayed release(DR/EC) 40 mg PO DAILY Qty: 90 3RF alfuzosin 10 mg tablet extended release 24 hr 10 mg PO DAILY Rx Instructions: administer after the same meal each day ziprasidone HCl 80 mg capsule 80 mg PO BID Rx Instructions: give with food (meal/snack) carvedilol 12.5 mg tablet 12.5 mg PO Q12H Rx Instructions: must administer with a meal/food buspirone 7.5 mg tablet 10 mg PO BID aspirin [Adult Aspirin Regimen] 81 mg tablet,delayed release (DR/EC) 81 mg PO DAILY lamotrigine 100 mg tablet 100 mg PO DAILY hydroxyzine pamoate 100 mg capsule 25 mg PO Q12H latanoprost 0.005 % Drops 1 drp OPHTHALMIC (EYE) DAILY ondansetron HCl 8 mg tablet 8 mg PO BID PRN (Reason: Nausea And Vomiting) morphine 30 mg tablet extended release 30 mg PO Q12H PRN (Reason: pain) oxycodone 5 mg tablet 10 mg PO Q4H PRN (Reason: Pain (Scale Score 7-10)) losartan 50 mg tablet See Rx Instructions .ROUTE .COMPLEX Qty: 90 2RF Dose Instruction: TAKE 1 TABLET BY MOUTH EVERY DAY Rx Instructions: TAKE 1 TABLET BY MOUTH EVERY DAY atorvastatin 40 mg tablet 40 mg PO DAILY Qty: 90 3RF Eliquis 5 mg tablet 5 mg PO BID Qty: 60 5RF tiotropium bromide [Spiriva with HandiHaler] 18 mcg capsule, w/inhalation device 1 cap inhalation DAILY 30 Days Qty: 30 2RF Rx Instructions: puncture 1 cap using device; one dose = 2 inhalations albuterol sulfate 90 mcg/actuation HFA aerosol inhaler See Rx Instructions .ROUTE .COMPLEX Qty: 8.5 3RF Dose Instruction: INHALE 1-2 PUFF(S) BY MOUTH EVERY 4 - 6 HOURS NEEDED FOR SHORTNESS OF BREATH OR WHEEZING Rx Instructions: INHALE 1-2 PUFF(S) BY MOUTH EVERY 4 - 6 HOURS NEEDED FOR SHORTNESS OF BREATH OR WHEEZING budesonide-formoterol [Symbicort] 160-4.5 mcg/actuation HFA aerosol inhaler See Rx Instructions .ROUTE .COMPLEX Qty: 10.2 5RF Dose Instruction: INHALE 2 PUFFS BY MOUTH TWICE A DAY. RINSE AND SPIT AFTER USE Rx Instructions: INHALE 2 PUFFS BY MOUTH TWICE A DAY. RINSE AND SPIT AFTER USE finasteride 5 mg tablet See Rx Instructions .ROUTE .COMPLEX Qty: 30 9RF Dose Instruction: TAKE 1 TABLET BY MOUTH EVERY DAY Rx Instructions: TAKE 1 TABLET BY MOUTH EVERY DAY ipratropium-albuterol 0.5 mg-3 mg(2.5 mg base)/3 mL solution for nebulization See Rx Instructions .ROUTE .COMPLEX Qty: 360 3RF Dose Instruction: INHALE 3 ML VIA NEBULIZER FOUR TIMES DAILY NEEDED FOR SHORTNESS OF BREATH OR WHEEZING Rx Instructions: INHALE 3 ML VIA NEBULIZER FOUR TIMES DAILY NEEDED FOR SHORTNESS OF BREATH OR WHEEZING nicotine 14 mg/24 hr patch 24 hour 1 patch transdermal DAILY 28 Days Qty: 28 1RF Follow-up/Referrals: Matthew Mccabe MD [Primary Care Provider, Family Practice]
[2025-09-22] MEDS: dexAMETHasone SOD PHOS INJ 10 MG/ML 1 ML VIAL IV PUSH (10:22)
[2025-09-22] MEDS: LACTATED RINGERS 1,000 ML 999 ML IV CONT (10:23)
--- OUTSIDE RECORDS SUMMARY | 2025-09-22 11:32 | XMS_ITS | Encounter Summary ---
Author Organization [facility] Address Critical access hospital[address] [place] [address] Care Team Providers Care Electric Container Tester Name Role Phone Amilcar Osorio MD Primary Care Provider [phone] Monica Tellez NP Primary Care Provider [phone] Natalie Baum HARNESS PLACER Primary Care Provider [phone] Encounter Details Date Type Department Care Team (Late st Contact Info) Description 04/16/2018 Hosp Visit [facility] Outpatient [place] [address] Grecia Hess, [place] [address] Social History Tobacco Use Types Packs/Day Years [...] filedocumented in this encounter Care Teams Electric Container Tester Relationship Specialty Start Date End Date Amilcar Osorio MD [address] [facility], [address] [address] PCP - General 05/01/17 09/04/19 Monica Tellez NP [address] [facility], [address] [address] PCP - General NURSE PRACTITIONER 09/05/19 01/18/25 Natalie Baum NP [address] [place] [address] PCP - General FAMILY PRACTICE 01/19/25 documented as of this encounter
--- OUTSIDE RECORDS SUMMARY | 2025-09-22 11:32 | XMS_ITS | Encounter Summary ---
Author Organization [facility] Address [address] [facility] [place] [address] Care Team Providers Care Seafood Process Worker Name Role Phone Ian Pollock MD Primary Care Provider [phone] Ian Pollock MD Primary Care Provider [phone] Ian Pollock MD Primary Care Provider [phone] Ian Pollock MD Primary Care Provider [phone] Katina Casiano DO Unavailable [phone] Xavi ACOSTA MD, Fred R Primary Care Provider + Katina Casiano DO Unavailable [phone] Tracey Ang PA Unavailable Unavailable Belkis Angel CHURCH SUPERVISOR-BROADCAST SUPERVISOR Primary Care Provider + Natalie Baum Primary Care Provider [phone] Reason for Visit * Reason Onset Date Comments Referral 12/13/2019 Encounter Details Date Type Department Care Team (Late st Contact Info) Description 12/13/2019 Telephone [facility] [address] [place] [address] Monica Tellez, CHURCH SUPERVISOR-BROADCAST SUPERVISOR [address] [place] [address] Referral Social History Tobacco [...] on file 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 Pollock will be going to very part-time in March, but patient apprised this TNs thathe had called for a more current appointment, and is to see Dr. Pollock today. PTIONAL STUDENT EDUCATION TEACHER * Telephone Encounter - Monica Tellez APRN-CNP - 12/16/2019 4:30 PM EXCEPTIONAL STUDENT EDUCATION TEACHER Do not know any director of state on [facility]. He will need to call his insurance company for list of [place] director of state. His appt was to be changed from Dr Pollock to a resident since Dr Pollock will be going to very supervisor line department in March and should not have new patients. MARISOL Díaz PTIONAL STUDENT EDUCATION TEACHER * Telephone Encounter - Janice Conn RN - 12/13/2019 10:45 AM EXCEPTIONAL STUDENT EDUCATION TEACHER Routing message to Dr Pollock PTIONAL STUDENT EDUCATION TEACHER * Telephone Encounter - Meenu Hidalgo - 12/13/2019 10:36 AM CST PT is calling and wanting to be referred to a director of state on the [facility]. PT stats it wouldbe more convenient and easier for the med cab. PT CBN:[phone] PTIONAL STUDENT EDUCATION TEACHER documented in this encounter Plan of [...] on filedocumented in this encounter Care Teams Seafood Process Worker Relationship Specialty Start Date End Date Ian Pollock MD PCP - General 12/13/19 05/25/20 Ian Pollock MD PCP - General 05/26/20 06/15/20 Ian Pololck MD [address] DIV OF [place] [address] PCP - General 07/31/20 08/20/20 Ian Pollock MD [address] DIV OF [facility] [place] [address] PCP - General 08/21/20 05/29/23 Jameel Hurley III, MD [address] DIV OF [facility] [place] [phone] PCP - General Internal Medicine 06/05/23 08/28/23 Belkis Angel, CHURCH SUPERVISOR-BROADCAST SUPERVISOR [address] [place] [phone] PCP - General Nurse Practitioner 08/29/23 05/05/24 Natalie Baum [address] [place] [address] PCP - General 05/06/24 Katina Casiano DO [address] DIV OF [facility] INTERNAL MEDICINE [place], [place] Resident - PCP Internal Medicine 08/10/22 05/29/23 Katina Casiano DO [address] DIV OF [facility] INTERNAL MEDICINE [place], [place] Hospitalist 06/05/23 Tracey Ang PA [address] DIV OF [facility] [place] [address] Physician Manager Lighting 08/15/23 documented as of this encounter
--- OUTSIDE RECORDS SUMMARY | 2025-09-22 11:32 | XMS_ITS | Encounter Summary ---
Author Organization [facility] Address [address] [facility] [place] [address] Care Team Providers Care Healthcare Recruiter Name Role Phone Ian Pollock MD Primary Care Provider [phone] Katina Casiano DO Unavailable [phone] Xavi ACOSTA MD, Jameel R Primary Care Provider + Katina Casiano DO Unavailable [phone] Tracey Ang PA Unavailable Unavailable Belkis Angel NUTRITION COUNSELOR-NEWS INTERN Primary Care Provider + Natalie Baum Primary Care Provider [phone] Encounter Details Date Type Department Care Team (Late st Contact Info) Description 02/18/2022 Telephone [facility], Critical Care and Sleep Medicine [address] [place] [phone] Agnieszka Haas MD [address] [place] [address] Social History Tobacco Use Types Packs/Day Years [...] on file 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 Patient Call Back number: [phone] documented in this encounter Plan of Treatment [...] on filedocumented in this encounter Care Teams Healthcare Recruiter Relationship Specialty Start Date End Date Ian Pollock MD [address] [place] [address] PCP - General 08/21/20 05/29/23 Jameel Hurley III, MD [address] DIV OF [facility] [place] [phone] PCP - General Internal Medicine 06/05/23 08/28/23 Belkis Angel, NUTRITION COUNSELOR-NEWS INTERN [address] [phone] PCP - General Nurse Practitioner 08/29/23 05/05/24 Natalie Baum [address] [place] [address] PCP - General 05/06/24 Katina Casiano DO [address] DIV OF [facility] INTERNAL MEDICINE [place], [place] Resident - PCP Internal Medicine 08/10/22 05/29/23 Katina Casiano DO [address] DIV OF [facility] INTERNAL MEDICINE [place], [place] Hospitalist 06/05/23 Tracey Ang PA [address] DIV OF [facility] [place] [address] Physician Molded Goods Spot Picker 08/15/23 documented as of this encounter
--- OUTSIDE RECORDS SUMMARY | 2025-09-22 11:32 | XMS_ITS | Encounter Summary ---
Author Organization [facility] Address [address] [facility] [place] [address] Care Team Providers Care Staff Electronic Warfare Officer Name Role Phone Ian Pollock MD Primary Care Provider [phone] Ian Pollock MD Primary Care Provider [phone] Ian Pollock MD Primary Care Provider [phone] Ian Pollock MD Primary Care Provider [phone] Katina Casiano DO Unavailable [phone] Xavi ACOSTA MD, Jameel R Primary Care Provider + Katina Casiano DO Unavailable [phone] Tracey Ang PA Unavailable Unavailable Belkis Angel EMBLEM DRAWER IN-MANAGED CARE MANAGER Primary Care Provider + Natalie Baum Primary Care Provider [phone] Reason for Visit * Reason Onset Date Comments MEDICATION REFILL 05/05/2020 Encounter Details Date Type Department Care Team (Late st Contact Info) Description 05/05/2020 Refill [facility], Critical Care and Sleep Medicine [address] [place] [address] Agnieszka Haas MD [address] [place] [address] MEDICATION REFILL Social History Tobacco Use Types [...] on file 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 Gender Identity Not on file Sexual [...] on filedocumented in this encounter Care Teams Staff Electronic Warfare Officer Relationship Specialty Start Date End Date Ian Pollock MD PCP - General 12/13/19 05/25/20 Ian Pollock MD PCP - General 05/26/20 06/15/20 Ian Pollock MD [address] DIV OF [facility] [place] [place] [address] PCP - General 07/31/20 08/20/20 Ian Pollock MD [address] DIV OF [facility] [place] [place] [address] PCP - General 08/21/20 05/29/23 Jameel Hurley III, MD [address] DIV OF [facility] [place] [phone] PCP - General Internal Medicine 06/05/23 08/28/23 Belkis Angel, EMBLEM DRAWER IN-MANAGED CARE MANAGER [address] [place] [phone] PCP - General Nurse Practitioner 08/29/23 05/05/24 Natalie Baum [address] [place] [address] PCP - General 05/06/24 Katina Casiano DO [address] DIV OF [facility] [place] Resident - PCP Internal Medicine 08/10/22 05/29/23 Katina Casiano DO [address] DIV OF [facility] [place], [place] Hospitalist 06/05/23 Tracey Ang PA [address] DIV OF [facility] [place] [place] [address] Physician Sludge Control Operator 08/15/23 documented as of this encounter
--- OUTSIDE RECORDS SUMMARY | 2025-09-22 11:32 | XMS_ITS | Encounter Summary ---
Author Organization [facility] Address [address] [place] [address] Care Team Providers Care Rehabilitation Program Manager Name Role Phone Ian Pollock MD Primary Care Provider [phone] Katina Casiano DO Unavailable [phone] Xavi ACOSTA MD, Jameel R Primary Care Provider + Katina Casiano DO Unavailable [phone] Tracey Ang Unavailable Unavailable Belkis Angel SWITCHBOARD OPERATOR RECEPTIONIST-HEATSET WINDER OPERATOR Primary Care Provider + Natalie Baum Primary Care Provider [phone] Reason for Visit * Reason Onset Date Comments Letter 12/02/2020 Encounter Details Date Type Department Care Team (Late st Contact Info) Description 12/02/2020 Telephone [facility] Medicine [address] [place] [address] Agnieszka Haas MD [address] [place] [address] Letter Social History Tobacco Use Types Packs/Day Years Used Date Smoking Tobacco: Every Day Cigarettes 1 30 Smokeless Tobacco: Never Alcohol Use Standard Drinks/Week Comments Yes 6 (1 standard drink = 0.6 oz pure alcohol) beer madi. 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 Unable to assess 11/18/2020 1:41 PM LIAISON ENGINEER documented as of this encounter Functional Status [...] vaccine sooner Thanks. Patient Call Back number: [phone] SON ENGINEER documented in this encounter Plan of [...] on filedocumented in this encounter Care Teams Rehabilitation Program Manager Relationship Specialty Start Date End Date Ian Pollock MD [address] DIV OF [facility] [place] [address] PCP - General 08/21/20 05/29/23 Jameel Hurley III, MD [address] OF [facility] [place] [phone] PCP - General Internal Medicine 06/05/23 08/28/23 Belkis Angel APRN-HEATSET WINDER OPERATOR [address] [place] [phone] PCP - General Nurse Practitioner 08/29/23 05/05/24 Natalie Baum [address] [place] [address] PCP - General 05/06/24 Katina Casiano DO [address] [facility] OF [facility] INTERNAL [place], [place] Resident - PCP Internal Medicine 08/10/22 05/29/23 Katina Casiano DO [address] DIV OF [facility] INTERNAL MEDICINE [place], [place] Hospitalist 06/05/23 Tracey Ang PA [address] OF [facility] [place] [address] Physician Demurrage Clerk 08/15/23 documented as of this encounter
--- OUTSIDE RECORDS SUMMARY | 2025-09-22 11:32 | XMS_ITS | Encounter Summary ---
Author Organization [facility] Address [address] [facility] [place] [address] Care Team Providers Care Revenue Field Auditor Name Role Phone Ian Pollock MD Primary Care Provider [phone] Katina Casiano DO Unavailable [phone] Xavi ACOSTA MD, Jameel Gaviria Primary Care Provider + Katina Casiano DO Unavailable [phone] Tracey Ang PA Unavailable Unavailable Belkis Angel LAUNDRY OPERATOR-MUCK BOSS Primary Care Provider + Natalie Baum Primary Care Provider [phone] Encounter Details Date Type Department Care Team (Late st Contact Info) Description 04/22/2021 Telephone [facility] [address] [place] [address] Kezia Hollis MD [address] OF PULMONARY/[place] [address] Social History Tobacco Use Types Packs/Day Years Used Date Smoking Tobacco: Every Day Cigarettes 1 30 Smokeless Tobacco: Never Alcohol Use Standard Drinks/Week Comments Yes 6 (1 standard drink = 0.6 oz pure alcohol) beer madi. 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 Hollis? Call Back #: [phone] documented in this encounter Plan of Treatment [...] on filedocumented in this encounter Care Teams Revenue Field Auditor Relationship Specialty Start Date End Date Ian Pollock MD [address] [facility] OF [facility] [place] [address] PCP - General 08/21/20 05/29/23 Jameel Hurley III, MD [address] [facility] OF [facility] [place] [address] PCP - General Internal Medicine 06/05/23 08/28/23 Belkis Angel APRN-MUCK BOSS [address] [place] [phone] PCP - General Nurse Practitioner 08/29/23 05/05/24 Natalie Baum [address] [place] [address] PCP - General 05/06/24 Katina Casiano DO [address] [facility] OF [facility] INTERNAL [place], [place] Resident - PCP Internal Medicine 08/10/22 05/29/23 Katina Casiano DO [address] [facility] OF [facility] INTERNAL [place], [place] Hospitalist 06/05/23 Tracey Ang PA [address] [facility] OF [facility] [place] [address] Physician Aligner Typewriter 08/15/23 documented as of this encounter
--- OUTSIDE RECORDS SUMMARY | 2025-09-22 11:32 | XMS_ITS | Encounter Summary ---
Author Organization [facility] Address [address] [facility] [place] [address] Care Team Providers Care Optometrist Assistant Name Role Phone Monica Tellez EVENT REPRESENTATIVE-ELECTRONICS MANUFACTURER Primary Care Provi cristobal Ian Pollock MD Primary Care Provider [phone] Ian Pollock MD Primary Care Provider [phone] Ian Pollock MD Primary Care Provider [phone] Ian Pollock MD Primary Care Provider [phone] Ian Pollock MD Primary Care Provider [phone] Katina Casiano DO Unavailable [phone] Xavi ACOSTA MD, Fred R Primary Care Provider + Katina Casiano DO Unavailable [phone] Tracey Ang Unavailable Unavailable Belkis Angel EVENT REPRESENTATIVE-ELECTRONICS MANUFACTURER Primary Care Provider + Natalie Baum Primary Care Provider [phone] Reason for Visit * Reason Onset Date Comments Forms/questionnaires 07/12/2019 [place] Encounter Details Date Type Department Care Team (Late st Contact Info) Description 07/12/2019 Telephone [facility] [address] [address] Monica Tellez EVENT REPRESENTATIVE-ELECTRONICS MANUFACTURER [address] [place] [address] Forms/questionnaires ([employer] transportation) Social History Tobacco Use Types Packs/Day [...] on file 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 Please advise. [phone] * Telephone Encounter - Shari Silvestre RN - 07/12/2019 1:11 PM CDT [facility] transportation form on your shelf. * Telephone Encounter - Hawa Allen - 07/12/2019 9:34 AM CDT Pt calling in to inform office that paperwork is on it's way from [place] concerning Medicare rides so pt can get transportation to and from [facility] appts. CB# [phone] Routed to [facility] Nurse Communication for further review documented in this encounter Plan of Treatment Not on file documented as of this encounter Visit Diagnoses Not on filedocumented in this encounter Care Teams Optometrist Assistant Relationship Specialty Start Date End Date Monica Tellez APRN-ELECTRONICS MANUFACTURER PCP - General 07/03/19 11/13/19 Ian Pollock MD PCP - General 11/14/19 12/12/19 Ian Pollock MD PCP - General 12/13/19 05/25/20 Ian Pollock MD PCP - General 05/26/20 06/15/20 Ian Pollock MD [address] OF [facility] [place] [address] PCP - General 07/31/20 08/20/20 Ian Pollock MD [address] [facility] OF [facility] [place] [address] PCP - General 08/21/20 05/29/23 Jameel Hurley III, MD [address] [place] [address] PCP - General Internal Medicine 06/05/23 08/28/23 Belkis Angel, EVENT REPRESENTATIVE-ELECTRONICS MANUFACTURER [address] [place] [phone] PCP - General Nurse Practitioner 08/29/23 05/05/24 Natalie aBum [address] [place] [address] PCP - General 05/06/24 Katina Casiano DO [address] DIV OF [facility] INTERNAL MEDICINE [place], [place] Resident - PCP Internal Medicine 08/10/22 05/29/23 Katina Casiano DO [address] DIV OF [facility] INTERNAL MEDICINE [place], [place] Hospitalist 06/05/23 Tracey Ang PA [address] DIV OF [facility] [place] [address] Physician Patternmaker Metal 08/15/23 documented as of this encounter
--- OUTSIDE RECORDS SUMMARY | 2025-09-22 11:32 | XMS_ITS | Encounter Summary ---
Author Organization [facility] Address [address] [facility] [place] [address] Care Team Providers Care Pack Worker Name Role Phone Ian Pollock MD Primary Care Provider [phone] Katina Casiano DO Unavailable [phone] Xavi ACOSTA MD, Fred R Primary Care Provider + Katina Casiano DO Unavailable [phone] Tracey Ang Unavailable Unavailable Belkis Angel QUALITY CONTROL LAB TECHNICIAN-CHILD LIFE SPECIALIST Primary Care Provider + Natalie Baum Primary Care Provider [phone] Reason for Visit * Reason Onset Date Comments Cardiac Rehab 02/23/2022 Encounter Details Date Type Department Care Team (Late st Contact Info) Description 02/23/2022 Telephone [facility] [address] [place] [address] Rama Lagos digital product manager Social History Tobacco Use Types Packs/Day Years [...] on file 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 Gender Identity Not on file Sexual Orientation [...] on filedocumented in this encounter Care Teams Pack Worker Relationship Specialty Start Date End Date Ian Pollock MD [address] DIV OF [facility] [place] [address] PCP - General 08/21/20 05/29/23 Jameel Hurley III, MD [address] DIV OF [facility] [place] [address] PCP - General Internal Medicine 06/05/23 08/28/23 Belkis Angel APRN-CHILD LIFE SPECIALIST [address] [facility] [address] [place] [address] PCP - General Nurse Practitioner 08/29/23 05/05/24 Natalie Baum [address] [place] [address] PCP - General 05/06/24 Katina Casiano DO [address] DIV OF [facility] INTERNAL MEDICINE [place], [place] Resident - PCP Internal Medicine 08/10/22 05/29/23 Katina Casiano DO [address] DIV OF [facility] INTERNAL MEDICINE [place], [place] Hospitalist 06/05/23 Tracey Ang PA [address] [facility] OF [facility] [place] [address] Physician Process Development Associate 08/15/23 documented as of this encounter
--- OUTSIDE RECORDS SUMMARY | 2025-09-22 11:32 | XMS_ITS | Encounter Summary ---
Author Organization [facility] Address [facility] [place] [address] Care Team Providers Care Box Liner Name Role Phone Amilcar Osorio MD Primary Care Provider [phone] Monica Tellez NP Primary Care Provider [phone] Natalie Baum TREE THINNER Primary Care Provider + [phone] Encounter Details Date Type Department Care Team (Late st Contact Info) Description 04/09/2018 Hosp Visit [facility] Outpatient [place] [address] [place] [address] Grecia Hess, [place] [address] Social History Tobacco Use Types Packs/Day Years [...] on filedocumented in this encounter Care Teams Box Liner Relationship Specialty Start Date End Date Amilcar Osorio MD [address] [facility], [address] [address] PCP - General 05/01/17 09/04/19 Monica Tellez NP [address] [facility], [address] [address] PCP - General NURSE PRACTITIONER 09/05/19 01/18/25 Natalie Baum NP [address] [place] [address] PCP - General FAMILY PRACTICE 01/19/25 documented as of this encounter
--- OUTSIDE RECORDS SUMMARY | 2025-09-22 11:32 | XMS_ITS | Encounter Summary ---
Author Organization [facility] Address [address] [facility] [place] [address] Care Team Providers Care Kiln Stoker Name Role Phone Ian Pollock MD Primary Care Provider [phone] Katina Casiano DO Unavailable [phone] Xavi ACOSTA MD, Jameel Gaviria Primary Care Provider + Katina Casiano DO Unavailable [phone] Tracey Ang Unavailable Unavailable Belkis Angel TECH WRITER-ASSEMBLER CHASSIS Primary Care Provider + Natalei Baum Primary Care Provider [phone] Encounter Details Date Type Department Care Team (Late st Contact Info) Description 03/03/2022 Telephone [facility] [address] [place] [address] Alvarez Duarte MD [address] [address] Social History Tobacco Use Types Packs/Day Years [...] on file 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 He is having transportation issues med [employer] does not run that late. He will call back to schedule when he can figure out his transportation. Please cancel this appt for him. Patient Call Back number: [phone] documented in this encounter Plan of Treatment [...] on filedocumented in this encounter Care Teams Kiln Stoker Relationship Specialty Start Date End Date Ian Pollock MD [address] DIV OF [facility] [place] [address] PCP - General 08/21/20 05/29/23 Jameel Hurley III, MD [address] DIV OF [facility] [place] [address] PCP - General Internal Medicine 06/05/23 08/28/23 Belkis Angel APRN-ASSEMBLER CHASSIS [address] [place] [phone] PCP - General Nurse Practitioner 08/29/23 05/05/24 Natalie Baum [address] [place] [address] PCP - General 05/06/24 Katina Casiano DO [address] DIV OF [facility] INTERNAL MEDICINE [place], [place] Resident - PCP Internal Medicine 08/10/22 05/29/23 Katina Casiano DO [address] [facility] OF [facility] INTERNAL MEDICINE [place], [place] Hospitalist 06/05/23 Tracey Ang PA [address] [facility] OF [facility] [place] [address] Physician Hose Turner 08/15/23 documented as of this encounter
--- OUTSIDE RECORDS SUMMARY | 2025-09-22 11:32 | XMS_ITS | Clinical Summary ---
Author Organization [facility] Address [address] [place] [address] Care Team Providers Care Continuous Mining Operator Name Role Phone Katina Casiano DO Unavailable [phone] Tracey Ang PA Unavailable Unavailable Natalie Baum Primary Care Provider Source Comments [facility],non-owned Affiliates and Associated Physician Practices is amultiple site organization consisting of ambulatory clinics and hospital sitesin [place], [place], [place]. This disclosure is being madepursuant to the Care Everywhere program and may not contain all information available regarding this patient. Last updated 18.[facility] Allergies Active Allergy Reactions Criticality [...] MG/3ML) 0.083% nebulizer solutionIndicati ons:Centrilobula r emphysema (HCC),Asthma-CROWN IRONER D overlap syndrome (HCC) Inhale 2.5 (two [...] Active Symbicort 160-4.5 MCG/ACT inhalerIndicatio ns:Centrilobular emphysema (HCC),Asthma-CROWN IRONER D overlap syndrome (HCC) Inhale 2 (two) puffs by mouth once daily 10.2 g 3 3 Active albuterol HFA (Proventil; Ventolin; Proair) 108 (90 Base) MCG/ACT inhalerIndicatio ns:Centrilobular emphysema (HCC),Asthma-CROWN IRONER D overlap syndrome (HCC) Inhale 2 (two) puffs by mouth every 6 hours as needed 8 g 1 4 Active busPIRone (Buspar) 7.5 MG tablet Take 1 (one) tablet by mouth 2 times daily 4 Active atorvastatin (Lipitor) 40 MG tablet Take 1 (one) tablet by mouth once daily 90 tablet 3 4 Active eplerenone (Inspra) 25 [...] EVERY DAY 90 tablet 1 5 Active carvedilol (Coreg) 12.5 MG tablet TAKE 1 TABLET BY MOUTH TWICE A DAY WITH MORNING AND EVENING MEAL 180 tablet 5 Active Active Problems Problem Noted Date Diagnosed Date Nonrheumatic mitral valve regurgitation 05/30/20 23 Assessment & Plan (05/30/2023 3:05 PM CDT): Clearly mild to moderate and stable. No indication for surgical or mitral clip. patient reassured Sleep apnea 01/04/2023 Assessment & Plan (01/04/2023 2:27 PM EDI DEVELOPER): - sleep study pending Fatigue 01/04/2023 Assessment & Plan (01/04/2023 2:28 PM EDI DEVELOPER): - Check TSH - pending sleep study [...] 07/29/2022 Assessment & Plan (01/04/2023 2:26 PM EDI DEVELOPER): - Due for TDap, Zoster, Covid outside [...] 07/29/2022 Assessment & Plan (01/04/2023 2:19 PM EDI DEVELOPER): - Will try to resend Eplerenone, previously [...] 01/05/2022 Assessment & Plan (01/04/2023 2:26 PM EDI DEVELOPER): - Likely sleep-related, obesity, SHAYNE - Cont. PPI Sleep choking syndrome 01/05/2022 PND (paroxysmal nocturnal dyspnea) 01/05/2022 Bipolar affective disorder 12/24/2021 Back pain 12/24/2021 Family history of other specified conditions Asthma-COPD overlap syndrome 11/11/2021 Assessment & Plan (01/04/2023 2:18 PM EDI DEVELOPER): - Tob cessation Chronic midline low back pain without sciatica 0 11/09/2021 Lumbosacral disc disease 11/09/2021 Foraminal stenosis of lumbar region 11/09/2021 Heart failure with reduced ejection fraction 09/2021 Assessment & Plan (05/30/2023 3:04 PM CDT): HF with EF recovered to normal. Continue current treatment. Assessment & Plan (01/04/2023 2:16 PM EDI DEVELOPER): - See HTN above - Pt not [...] 07/11/2019 Assessment & Plan (01/04/2023 2:15 PM EDI DEVELOPER): - Stable, despite holding spirono due to [...] 11/06/2017 Assessment & Plan (01/04/2023 2:13 PM EDI DEVELOPER): - Encouraged cessation, ready to quit - [...] Encounters Date Type Department Care Team Description 08/29/2025 Refill [facility] - Cardiology [address] [facility], [facility] [address] [place] [address] Kyra Lawrence, RUSS-FURNACE TENDER Refill Request from Last 3 Months Immunizations Immunization Administration Dates Next Due COVID DIOR PRIMARY 18+YR 01/17/2021, 1 INFLUENZA VACCINE 08/13/2020 INFLUENZA VACCINE, QUADR. (A [...] on file 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 EDI DEVELOPER Gender Identity Not on file Sexual [...] 12:43 PM CDT Height 175.3 cm (5' 9) 01/29/2024 12:43 PM CDT Body Mass Index 33.23 01/29/2024 12:43 PM CDT Plan of Treatment Health Maintenance Due Date Last Done Comments COLOGUARD (AGES 45-75) - COLON CA SCREENING 1961 CT COLONOGRAPHY - COLON CA SCREENING 1961 FIT - COLON CA SCREENING 1961 FLEX SIG - COLON CA SCREENING 1961 HIV SCREENING 1976 Respiratory Syncytial Virus (RSV) Vaccine Pt: or over 60 yrs (1 - Risk 50-74 years 1-dose series) 2011 ZOSTER VACCINE (1 of 2) 2011 COVID-19 VACCINE ( - season) 2025 09/29/2023, 09/14/2021, 01/17/2021, Additional history exists INFLUENZA VACCINE (#1) 2025 3, 07/29/2022, 07/26/2021, Additional history exists SCREENING [...] ENDOSCOPY, COLON, SCREENING Routine 12/07/2022 10:04 AM EDI DEVELOPER COMPREHENSIVE METABOLIC PANEL Routine 08/09/2022 1:47 PM CDT Weight loss HEPATITIS C AB W/RFLX TO HCV RNA QN PCR 09/19/2019 9:17 AM EDI DEVELOPER from Last 3 Months or Most Recently Relevant to Health Maintenance Results * ENDOSCOPY, COLON, SCREENING (12/07/2022 10:04 AM EDI DEVELOPER) Report Endoscopy POC Endoscopy Department Report [...] entire procedure. Procedure Code(s): --- Professional --- 10815, Colonoscopy, flexible; with removal of tumor(s), polyp(s), or other lesion(s) by snare technique Diagnosis Code(s): --- Professional --- Z86.010, Personal history of colonic polyps K63.5, Polyp of colon Z80.0, Family history of malignant neoplasm of digestive organs CPT copyright 2019 [employer] [employer]. All rights reserved. The codes documented in this report are preliminary and upon lead burner apprentice review may be revised to meet current compliance requirements. Tal Mccormick, 12/07/2022 10:49:20 AM Note Initiated On: 12/07/2022 10:04 AM Number of Addenda: [address] PROVATION 12/07/2022 10:0 4 AM EDI DEVELOPER [facility] Tal Mccormick MD GI PROCEDURE O RDERABLES Edited Result - Final [facility] PROVATION * (ABNORMAL) COMPREHENSIVE METABOLIC PANEL (08/09/2022 [...] 46 U/L [facility] Comment: Test Performed at: [facility] [id number] [place] [address] PRUDENCIO ALDANA DO,MPH Blood BLOOD SPECIMEN / Unknown 08/09/2022 1:47 PM CDT 08/09/2022 1:50 PM CDT Ian Pollock MD LAB - CHEMISTRY ORDERABLES Fin al Result [facility] [id number] [place] [address] * HEPATITIS C AB W/RFLX TO HCV RNA QN PCR (09/19/2019 9:17 AM EDI DEVELOPER) Hepatitis C Antibody NON-REACTI VE NON-REACT FELY [facility] Signal to Cut-Off 0.03 <1.00 [facility] Comment: HCV antibody was non-reactive. There is no laboratory evidence of HCV infection. In most cases, no further action is required. However, if recent HCV exposure is suspected, a test for HCV RNA (test code 95397) is suggested. For additional information please refer to http://education.UpDown/faq/HRF43e4 (This link is being provided for informational/ educational purposes only.) Test Performed at: [facility] [address] [place] [address] PRUDENCIO ALDANA DO,MPH 09/19/2019 9:17 AM EDI DEVELOPER 09/19/2019 9:21 AM EDI DEVELOPER Monica Tellez CAR CUSTOMIZER-FURNACE TENDER LAB - CHEMISTRY ORD ERABLES Final Result [facility] [address] [place] [address] from Last 3 Months or Most Recently Relevant to Health Maintenance Insurance [facility] Advance Directives Documents on File Type Date Recorded Patient Database Administration Manager Expl anation Adv Directive/Living Will/POA 11/05/2015 12:22 PM * Full Code (Latest Code Status on File) Date Activated Date Inactivated Comments 11/01/2015 9:11 PM 11/05/2015 6:02 AM Care Teams Continuous Mining Operator Relationship Specialty Start Date End Date Natalie Baum [address] [place] [address] PCP - General 05/06/24 Katina Casiano DO [address] DIV OF [facility] INTERNAL MEDICINE [place], [place] Hospitalist 06/05/23 Tracey Ang PA [address] DIV OF [facility] INTERNAL MEDICINE [place], [place] Physician Bottom Hoop Driver 08/15/23
--- OUTSIDE RECORDS SUMMARY | 2025-09-22 11:32 | XMS_ITS | Encounter Summary ---
Author Organization [facility] Address [facility] [place] [address] Care Team Providers Care Boat Carpenter Name Role Phone Amilcar Osorio MD Primary Care Provider [phone] Monica Tellez NP Primary Care Provider [phone] Natalie Baum CLERICAL SUPPORT Primary Care Provider + [phone] Encounter Details Date Type Department Care Team (Late st Contact Info) Description 04/02/[address] [facility] [place] [address] Grecia Hess, [place] [address] Social History Tobacco Use Types Packs/Day Years [...] on filedocumented in this encounter Care Teams Boat Carpenter Relationship Specialty Start Date End Date Amilcar Osorio MD [address] [facility], [address] [address] PCP - General 05/01/17 09/04/19 Monica Tellez NP [address] [facility], [address] [address] PCP - General NURSE PRACTITIONER 09/05/19 01/18/25 Natalie Baum NP [address] [place] [address] PCP - General FAMILY PRACTICE 01/19/25 documented as of this encounter
--- OUTSIDE RECORDS SUMMARY | 2025-09-22 11:32 | XMS_ITS | Clinical Summary ---
Author Organization [facility] Address [address], [facility] [address] [place] [address] Phone Care Team Providers Care Sales Manager Name Role Phone Patito Randalli [place] PROPERTY CONDITION ASSESSOR, CLINICAL DATA ABSTRACTOR Unavailable Allergies Active Allergy Reactions Criticality Noted [...] Comments Blood Pressure 142/74 11/06/2017 2:41 PM SENIOR IT BUSINESS ANALYST Pulse 77 11/06/2017 2:41 PM SENIOR IT BUSINESS ANALYST Temperature 36.1 C (97 F) 11/06/2017 2:41 PM SENIOR IT BUSINESS ANALYST Respiratory Rate 18 11/06/2017 2:41 PM SENIOR IT BUSINESS ANALYST Oxygen Saturation 99% 11/06/2017 8:00 AM SENIOR IT BUSINESS ANALYST Inhaled Oxygen Concentration - - Weight 113.4 kg (250 lb) 11/03/2017 6:25 PM SENIOR IT BUSINESS ANALYST Height 175.3 cm (5' 9) 11/03/2017 6:25 PM SENIOR IT BUSINESS ANALYST Body Mass Index 36.92 11/03/2017 6:25 PM SENIOR IT BUSINESS ANALYST Plan of Treatment Health Maintenance Due Date Last Done Comments Hepatitis C Virus (HCV) Screening 1961 Pneumococcal Immunization (50+ years) (1 of 2 - PCV) 1980 Cologuard 2006 Immunochemical Fecal Occult Blood 2006 Respiratory Syncytial Virus (RSV) Immunization (Adult) (1 - Risk 50-74 years 1-dose series) 2011 Zoster Immunization (1 of 2) 2011 Influenza Immunization (#1) 2025 10/0 03/2020, 07/17/2017, 09/29/2016, Additional history exists SARS-COV-2 Immunization ( season) 2025 09/14/2021, 01/05/2021 Colonoscopy 09/30/2025 09/30/2015 Colorectal Cancer Screening 09/30/2025 DTaP/Tdap/Td Immunization Discontinued 07/17/2017 TdaP Immunization Completed 07/17/2017 Lung Cancer Screening Discontinued 11/03/2017 Hepatitis B Immunization Aged Out No longer eligible based on patient's age to complete this topic Human Papillomavirus (HPV) Immunization Aged Out No longer eligible based on patient's age to complete this topic Meningococcal Immunization (ACWY) Aged Out No longer eligible based on patient's age to complete this topic Rotavirus Immunization Aged Out No lo nger eligible based on patient's age to complete this topic Procedures Procedure Name Priority Date/Time Associated Diagnosis Comments CT CHEST W/O CONTRAST STAT 11/03/2017 11:30 PM SENIOR IT BUSINESS ANALYST from Last 3 Months or Most Recently Relevant to Health Maintenance Results * CT CHEST W/O CONTRAST (11/03/2017 11:30 PM SENIOR IT BUSINESS ANALYST) Anatomical Region Laterality Modality Chest N/A Computed Tomogra phy 11/04/2017 12:2 4 AM SENIOR IT BUSINESS ANALYST Impressions 11/04/2017 12:28 AM SENIOR IT BUSINESS ANALYST IMPRESSION: 1. A few nonspecific scattered ground-glass infiltrates in the bilateral upper lobes, which may represent pneumonia. 2. Mild paraseptal emphysema. Automated exposure control was used as a dose optimization technique for this examination. Narrative 11/04/2017 12:28 AM SENIOR IT BUSINESS ANALYST EXAMINATION: CT chest without contrast HISTORY: Cough, [...] a dose optimization technique for this examination. MD DL Christianson CT ORDERABLES Final Resul t from Last 3 Months or Most Recently Relevant to Health Maintenance Insurance MEDICAID [facility] PL[facility] Advance Directives * Full Code (Latest Code Status on File) Date Activated Date Inactivated Comments 11/04/2017 9:36 AM 11/06/2017 6:27 PM CPR-Full Treat ment: FULL ARREST: Attempt Resuscitation/CPR wit intubation and mechanical ventilation. PRE-ARREST: Use entire range of life support measures to stabilize the patient. Care Teams Sales Manager Relationship Specialty Start Date End Date Montserrat Randall, PROPERTY CONDITION ASSESSOR, CLINICAL DATA ABSTRACTOR Nurse Practitioner Advanced Practice Nurse 10/21/16
--- OUTSIDE RECORDS SUMMARY | 2025-09-22 11:32 | XMS_ITS | Clinical Summary ---
Author Organization [place] Address [facility] [place] [address] Care Team Providers Care Supervisor Area Name Role Phone Natalie Baum LE Primary Care Provider + [phone] Allergies Active Allergy Reactions Criticality Noted Date [...] as needed for Itching or Anxiety. Active ipratropium-alb uterol (DUONEB) 0.5-2.5 (3) MG/3ML Solution Take 3 [...] for Wheezing or Shortness of breath. Active Active Problems Patient Care Coordination No te Formatting of this note migh t be different from the original. PT precautions: R TKR, HTN, denies all others. Problem Noted Date Diagnosed Date Gram-negative pneumonia 01/20/2025 Social History Tobacco Use Types Packs/Day Years Used Date Smoking Tobacco: Every Day Cigarettes Smokeless Tobacco: Never Alcohol Use Standard Drinks/Week Comments Never 0 (1 standard drink = 0.6 oz pur e alcohol) [facility] Utilities Answer Date Recorded In the past 12 months has e [employer], [employer], oil, or water [employer] threatened to shut off services in your [...] money to buy more. Never true 01/20/20 Within the past 12 months, t he [...] any time in the past 12 m [facility], were you homeless or living in a longterm (including now)? No 01/19/2025 Sex and Gender [...] 4:59 AM CDT Height 175.3 cm (5' 9) 01/19/2025 4:56 PM CDT Body Mass Index 25.98 01/19/2025 4:56 PM CDT Plan of Treatment Health Maintenance Due Date Last Done Comments Colorectal Cancer Screening Colonoscopy (10 Years) 1961 Annual Physical 1964 Hepatitis C 1979 Zoster Vaccines (1 of 2) 2011 COVID-19 Vaccine ( - season) 2025 09/29/2023, 09/14/2021, 01/17/2021, Additional history exists Influenza Adult (#1) 2025 08/23/2024, 09/29/2023, 07/29/2022, Additional history exists DTaP, Tdap and Td Vaccines (3 - Td or Tdap) 09/29/2033 09/29/2023, 07/17/2017 Pneumococcal Vaccine: 50+ Years Completed 07/29/2022, 07/11/2019 RSV Immunization or 60+ Years Completed 08/23/2024 Hepatitis A Vaccines Aged Out No long er eligible based on patient's age to complete this topic Meningococcal B Vaccine Aged Out No l onger eligible based on patient's age to complete this topic Meningococcal Vaccine Aged Out No scotty eugenio eligible based on patient's age to complete this topic RSV Immunizations Under 20 Months Aged Out No longer eligible based on patient's age to complete this topic Insurance [employer] Advance Directives * Full Code (Latest Code Status on File) Date Activated Date Inactivated Comments 01/20/2025 5:09 AM 01/21/2025 6:55 PM Care Teams Supervisor Area Relationship Specialty Start Date End Date Natalie Baum NP [address] [place] [address] PCP - General FAMILY PRACTICE 01/19/25
--- OUTSIDE RECORDS SUMMARY | 2025-09-22 11:32 | XMS_ITS | Encounter Summary ---
Author Organization [facility] Address [facility] [place] [address] Care Team Providers Care Supervisor Metal Furniture Fabrication Name Role Phone Amilcar Osorio MD Primary Care Provider [phone] Monica Tellez NP Primary Care Provider [phone] Natalie Baum RETAIL POS SPECIALIST Primary Care Provider + [phone] Encounter Details Date Type Department Care Team (Late st Contact Info) Description 04/09/2018 Hosp Visit [facility] [place] [address] Grecia Hess, [place] [address] Social History Tobacco Use Types Packs/Day Years [...] filedocumented in this encounter Care Teams Supervisor Metal Furniture Fabrication Relationship Specialty Start Date End Date Amilcar Osorio MD [address] [facility], [address] [id number] PCP - General 05/01/17 09/04/19 Monica Tellez NP [address] [facility], [address] [address] PCP - General NURSE PRACTITIONER 09/05/19 01/18/25 Natalie Baum NP [address] [place] [address] PCP - General FAMILY PRACTICE 01/19/25 documented as of this encounter
--- OUTSIDE RECORDS SUMMARY | 2025-09-22 11:32 | XMS_ITS | Encounter Summary ---
Author Organization [facility] Address [address] [facility] [place] [address] Care Team Providers Care Paint Brush Maker Name Role Phone Ian Pollock MD Primary Care Provider [phone] Katina Casiano DO Unavailable [phone] Xavi ACOSTA MD, Jameel R Primary Care Provider + Katina Casiano DO Unavailable [phone] Tracey Ang Unavailable Unavailable Belkis Angel CRAWLER DRAGLINE OPERATOR-VEHICLE SAFETY INSPECTOR Primary Care Provider + Natalie Baum Primary Care Provider [phone] Reason for Visit * Reason Onset Date Comments Refill Request 04/13/2021 Encounter Details Date Type Department Care Team (Late st Contact Info) Description 04/13/2021 Telephone [facility] [address] [place], [place] [id number] Ian Pollock MD [address] [place] [address] Refill Request Social History Tobacco Use Types Packs/Day Years Used Date Smoking Tobacco: Every Day Cigarettes 1 30 Smokeless Tobacco: Never Alcohol Use Standard Drinks/Week Comments Yes 6 (1 standard drink = 0.6 oz pure alcohol) beer madi. 25 oz 3 times a week Sex and Gender Information Value Date Recorded Sex Assigned at Not on file 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 SUPERVISOR STRIPPING Gender Identity Not on file Sexual Orientation [...] to be refilled. Patient Call Back number: [phone] documented in this encounter Plan of Treatment [...] sciatica documented in this encounter Care Teams Paint Brush Maker Relationship Specialty Start Date End Date Ian Pollock MD [address] [facility] [place] [address] PCP - General 08/21/20 05/29/23 Jameel Hurley III, MD [address] [facility] [place] [id number] PCP - General Internal Medicine 06/05/23 08/28/23 Belkis Angel, CRAWLER DRAGLINE OPERATOR-VEHICLE SAFETY INSPECTOR [address] [place] [address] [address] [place] [address] PCP - General Nurse Practitioner 08/29/23 05/05/24 Natalie Baum [address] [place] [address] PCP - General 05/06/24 Katina Casiano DO [address] [facility] [place], [place] Resident - PCP Internal Medicine 08/10/22 05/29/23 Katina Casiano DO [address] [facility] [place], [place] Hospitalist 06/05/23 Tracey Ang PA [address] [place] [address] Physician Coffee Roaster 08/15/23 documented as of this encounter
--- OUTSIDE RECORDS SUMMARY | 2025-09-22 11:32 | XMS_ITS | Clinical Summary ---
Author Organization [facility] Address [address] [place] [address] Care Team Providers Care [employer] Supervisor Name Role Phone Matthew Mccabe MD Primary Care Prov ider Stan Meza MD Unavailable Natalie Baum NP Unavailable [phone] Allergies Active Allergy Reactions Criticality Noted Date Comments Lisinopril Anaphylaxis,Unknown High 03/27/2015 Mirtazapine Unknown 03/20/2025 Penicillins Anaphylaxis,Swelling ,Un known,Stomach upset High 06/11/2012 Patient received ceftriaxone in January 2025 Medications ziprasidone (GEODON) 80 mg capsule Take [...] (two) times a day 08/16/20 19 Active nicotine polacrilex (NICORETTE) 4 mg gum Take 1 each (4 mg total) by mouth as needed Has but not currently using 01/20/20 22 Active nicotine (NICODERM CQ) [address] 1 patch on the skin daily Has but isn't currently using 11/06/19 18 Active mirtazapine (REMERON) 7.5 mg tablet daily 07/17/20 24 Active apixaban (ELIQUIS) 5 mg tablet Take 1 tablet (5 mg total) by mouth 2 (two) times a day 60 tablet 08/29/20 24 Active LORazepam (ATIVAN) 0.5 mg tablet daily Active traMADoL (ULTRAM) 50 mg tablet every 12 hours Activ e calcium carbonate-amando min D3 1,250 mg (500 mg elemental)-400 unit tablet Take 1 tablet by mouth 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 30 tablet 3 09/25/20 24 Active ipratropium-al buteroL (DUO-NEB) 0.5-2.5 mg/3 mL nebulizer solution INHALE 3 ML VIA NEBULIZER FOUR TIMES DAILY NEEDED FOR SHORTNESS OF BREATH OR WHEEZING 10/18/20 24 Active potassium chloride ER (KLOR-CON) 20 mEq CR tablet Take 1 tablet (20 mEq total) by mouth daily 14 tablet 11/14/19 25 Active doxycycline 100 mg tablet Take 1 tablet/capsule (100 mg total) by mouth 2 (two) times a day 01/20/20 25 Active food supplemt, lactose-reduce d 0.05 gram- 1.5 kcal/mL liquid Take 1 Can by mouth daily 01/31/20 25 Active cefdinir (OMNICEF) 300 mg capsule Take 1 capsule (300 mg total) by mouth daily 02/29/20 25 Active tiotropium (SPIRIVA) 18 mcg per inhalation capsule Place 1 puff (1 capsule total) into inhaler and inhale as needed 02/29/20 25 Active hydrOXYzine (VISTARIL) 25 mg capsule Take 1 capsule (25 mg total) by mouth 3 (three) times a day 02/27/20 25 Active finasteride (PROSCAR) 5 mg tablet Take 1 tablet (5 mg total) by mouth daily 05/16/20 25 Active prochlorperazi ne (Compazine) 10 mg tabletIndicati ons:Hypokalemi a,Primary cancer of left lower lobe of lung (HCC),Metastas is to bone,Prophylax is for chemotherapy-i nduced neutropenia Take 1 tablet (10 mg total) by mouth every 6 (six) hours as needed for nausea or vomiting 60 tablet 3 06/26/20 25 Active dexAMETHasone (DECADRON) 4 mg tabletIndicati ons:Primary cancer of left lower lobe of lung (HCC),Metastas is to bone,Prophylax is for chemotherapy-i nduced neutropenia Take 2 tablets (8 mg) by mouth twice a day the day before and the day after DOCEtaxel. 8 tablet 5 07/10/20 25 Active lamoTRIgine (LaMICtal) 25 mg tablet Take 1 tablet (25 mg total) by mouth daily 07/22/20 25 Active ondansetron (ZOFRAN) 8 mg tabletIndicati ons:Primary cancer of left lower lobe of lung (HCC),Prophyla xis for chemotherapy-i nduced neutropenia TAKE 1 TABLET BY MOUTH EVERY 8 HOURS NEEDED FOR NAUSEA AND VOMITING. USE IF PROCHLORPERAZINE DOES NOT STOP NAUSEA 24 tablet 3 08/08/20 25 Active senna-docusate (Senexon-S) 8.6-50 mg Take 2 tablets by mouth daily 60 tablet 3 08/08/20 25 Active morphine ER (MS CONTIN) 30 mg 12 hr tabletIndicati ons:Primary cancer of left lower lobe of lung (HCC),Metastas is to bone,Cancer related pain Take 1 tablet (30 mg total) by mouth every 12 (twelve) hours 60 tablet 09/05/20 25 Active oxyCODONE (ROXICODONE) 5 mg immediate release tabletIndicati ons:Pain,cance r related pain Take 1-2 tablets (5-10 mg total) by mouth every 4 (four) hours as needed for pain 120 tablet 09/05/20 25 Active varenicline tartrate (CHANTIX KATTY) 0.5 mg (11)- 1 mg (42) tablet Use as directed on package instructions, ry to quit smoking after 1 week. 53 tablet 09/18/20 25 026 Active varenicline tartrate (CHANTIX) 1 mg tablet Take 1 tablet (1 mg total) by mouth 2 (two) times a day Has but not currently taking 05/30/20 23 025 Discontin ued(Dupli cecilia order) oxyCODONE (ROXICODONE) 5 mg immediate release tabletIndicati ons:Pain,cance r related pain Take 1-2 tablets (5-10 mg total) by mouth every 4 (four) hours as needed for pain 120 tablet 08/08/20 25 025 Discontin ued(Reord er) morphine ER (MS CONTIN) 30 mg 12 hr tabletIndicati ons:Primary cancer of left lower lobe of lung (HCC),Metastas is to bone,Cancer related pain Take 1 tablet (30 mg total) by mouth every 12 (twelve) hours 60 tablet 08/08/20 25 025 Discontin ued(Reord er) Active Problems Problem Noted Date Diagnosed Date Nicotine dependence with current use 09/18/2025 Hypokalemia 11/14/2024 Metastasis to bone 11/06/2024 Cancer related pain 08/15/2024 Prophylaxis for chemotherapy-induced neutropenia 08/01/2024 Primary cancer of left lower lobe of lung 2023 Cancer Staging:Clinical:Stage IVB(pM1c) - Unsigned Localized enlarged lymph nodes 05/28/2024 Hilar mass 05/28/2024 Encounters Date Type Department Care Team Description 09/22/2025 Telephone [facility] Medicine Oncology [address] [place] [phone] Sasha Hernandes RN 09/18/2025 11:00 AM LITIGATION ASSISTANT Infusion [facility] - Infusion [address] [place] [address] 5 [place] [address] Prophylaxis for chemotherapy-induc ed neutropenia (Primary Dx); Metastasis to bone; Primary cancer of left lower lobe of lung (HCC) 09/18/2025 9:00 AM LITIGATION ASSISTANT Office Visit [facility] Medicine Oncology [address] [place] [phone] Shari Quintana NP Metastasis to bone (Primary Dx); Primary cancer of left lower lobe of lung (HCC); Prophylaxis for chemotherapy-induc ed neutropenia; Nicotine dependence with current use 09/18/2025 8:00 AM LITIGATION ASSISTANT Clinical Support [facility] - Lab Collection [address] [place] [address] Metastasis to bone; Primary cancer of left lower lobe of lung (HCC); Prophylaxis for chemotherapy-induc ed neutropenia 09/18/2025 Documentation [facility] Nutrition Counseling [address] [place] [address] 09/15/2025 8:44 AM LITIGATION ASSISTANT - 09/15/2025 11:59 PM LITIGATION ASSISTANT Hospital Encounter [facility] Radiology [facility] [place] [address] [place] [address] Primary cancer of left lower lobe of lung (HCC) Discharge Disposition: Discharge to home or self care 09/11/2025 Social Work [facility] Medicine Oncology [address] [place] [phone] Sarah Brunner, PRODUCT DEVELOPMENT TECHNICIAN 09/10/2025 Telephone [facility] Radiology 1 [place] [address] Tg Millan, ALYX 09/09/2025 Social Work [facility] Medicine Oncology [address] [place] [address] 5 [place] [address] Sarah Brunner, PRODUCT DEVELOPMENT TECHNICIAN 08/28/2025 11:30 AM CDT Infusion [facility] - Infusion [address] [facility] Floor 5 [place] [address] Prophylaxis for chemotherapy-induc ed neutropenia (Primary Dx); Metastasis to bone; Primary cancer of left lower lobe of lung (HCC) 08/28/2025 9:40 AM CDT Office Visit [facility] Oncology [address] [place] [phone] Stan Meza MD Primary cancer of left lower lobe of lung (HCC) (Primary Dx); Metastasis to bone; Prophylaxis for chemotherapy-induc ed neutropenia 08/28/2025 8:45 AM CDT Clinical Support [facility] - Lab Collection [address] [place] [address] Metastasis to bone; Primary cancer of left lower lobe of lung (HCC); Prophylaxis for chemotherapy-induc ed neutropenia 08/28/2025 8:30 AM CDT Lab [facility] Medicine Oncology Lab [address] [place] [phone] Metastasis to bone; Primary cancer of left lower lobe of lung (HCC); Prophylaxis for chemotherapy-induc ed neutropenia 08/28/2025 Documentation [facility] [address] [place] [address] Dagmar Pickard, LARRY 08/25/2025 Documentation [facility] Medicine Oncology [address] [place] [address] [address] [place] [phone] Carolyn Mckenna, PRODUCT DEVELOPMENT TECHNICIAN 08/22/2025 Telephone [facility] Oncology [address] [place] [phone] Sasha Hernandes RN 08/21/2025 10:00 AM CDT Office Visit [facility] Medicine Oncology [address] [place] [address] Floor 5 [place] [address] Stan Meza MD Primary cancer of left lower lobe of lung (HCC) (Primary Dx); Metastasis to bone; Prophylaxis for chemotherapy-induc ed neutropenia 08/21/2025 9:00 AM CDT Lab [facility] - Lab Collection [address] [place] [address] Floor 5 [place] [address] Metastasis to bone; Primary cancer of left lower lobe of lung (HCC); Prophylaxis for chemotherapy-induc ed neutropenia 08/21/2025 7:24 AM CDT - 08/21/2025 11:59 PM CDT Hospital Encounter [facility] [address] [place] [phone] Stan Meza MD Primary cancer of left lower lobe of lung (HCC) Discharge Disposition: Discharge to home or self care 08/18/2025 Documentation [facility] Medicine Oncology [address] [place] [address] [address] [place] [address] Carolyn Mckenna LCSW 08/01/2025 9:00 AM CDT Infusion [facility] - Infusion [address] [place] [address] Floor 5 [place] [address] Metastasis to bone (Primary Dx); Primary cancer of left lower lobe of lung (HCC); Prophylaxis for chemotherapy-induc ed neutropenia 08/01/2025 Orders Only [facility] Medicine Oncology [address] [place] [address] 5 [place] [address] Sasha Hernandes, RN 08/01/2025 Telephone [facility] Medicine Oncology [address] [place] [phone] Sasha Hernandes, RN 08/01/2025 Social Work [facility] Medicine Oncology [address] [place] [address] Floor 1, [address] [place] [address] Megan Parish LCSW 07/31/2025 12:30 PM CDT Infusion [facility] - Infusion [address] [place] [address] Floor 5 [place] [address] Primary cancer of left lower lobe of lung (HCC) (Primary Dx); Metastasis to bone; Prophylaxis for chemotherapy-induc ed neutropenia 07/31/2025 11:20 AM CDT Office Visit [facility] Medicine Oncology [address] [place] [phone] Shari Quintana, LE Primary cancer of left lower lobe of lung (HCC) (Primary Dx); Metastasis to bone; Prophylaxis for chemotherapy-induc ed neutropenia 07/31/2025 10:30 AM CDT Lab [facility] - Lab Collection [address] [place] [address] 5 [place] [address] Metastasis to bone; Primary cancer of left lower lobe of lung (HCC); Prophylaxis for chemotherapy-induc ed neutropenia 07/31/2025 Documentation [facility] [address] [place] [address] Joann Olivares, LARRY 07/24/2025 Social Work [facility] Oncology [address] [place] [phone] Sarah Brunner, [facility] 07/21/2025 Social Work [facility] Oncology [address] [place] [phone] Sarah Brunner, PRODUCT DEVELOPMENT TECHNICIAN 07/15/2025 Telephone [facility] Oncology [address] [place] [phone] Janice Kilgore, [facility] 07/14/2025 Telephone [facility] Oncology [address] [place] [phone] Sasha Hernandes RN 07/10/2025 11:30 AM CDT Infusion [facility] - Infusion [address] [place] [address] Prophylaxis for chemotherapy-induc ed neutropenia (Primary Dx); Metastasis to bone; Primary cancer of left lower lobe of lung (HCC) 07/10/2025 10:40 AM CDT Office Visit [facility] Medicine Oncology [address] [place] [phone] Stan Meza MD Primary cancer of left lower lobe of lung (HCC) (Primary Dx); Metastasis to bone; Prophylaxis for chemotherapy-induc ed neutropenia 07/10/2025 10:15 AM CDT Clinical Support [facility] - Lab Collection [facility] Floor 5 [place] [address] Primary cancer of left lower lobe of lung (HCC) 07/10/2025 9:45 AM CDT Lab [facility] On[facility] Lab [address] [place] [address] Floor 5 [place] [address] Primary cancer of left lower lobe of lung (HCC) 07/10/2025 Social Work [facility] Medicine Oncology [address] [place] [address] 8 [place] [address] Sarah Brunner, PRODUCT DEVELOPMENT TECHNICIAN 07/10/2025 Documentation [facility] [address] [place] [address] Dagmar Pickard, LARRY 07/09/2025 Social Work [facility] Medicine Oncology [address] [place] [address] 8 [place] [address] Sarah Brunner, PRODUCT DEVELOPMENT TECHNICIAN 07/09/2025 Orders Only [facility] Medicine Oncology [address] [place] [address] 5 [place] [address] Sasha Hernandes RN Metastasis to bone (Primary Dx); Primary cancer of left lower lobe of lung (HCC); Prophylaxis for chemotherapy-induc ed neutropenia 07/04/2025 [facility]ation [facility] [address] [place] [address] 8 [place] [address] Sarah Brunner, PRODUCT DEVELOPMENT TECHNICIAN 07/03/2025 Orders Only [facility] [address] [place] [address] 6 [place] [address] Karin Zaman NP 07/03/2025 Orders Only [facility] [address] [place] [address] 5 [place] [address] Sasha Hernandes RN Primary cancer of left lower lobe of lung (HCC) (Primary Dx) 07/02/2025 4:00 PM CDT Lab [facility] - Lab Collection [address] [place] [address] 6 [place] [address] Hypokalemia; Primary cancer of left lower lobe of lung (HCC); Metastasis to bone; Prophylaxis for chemotherapy-induc ed neutropenia 07/02/2025 10:00 AM CDT Office Visit [facility] Oncology [address] [place] [address] 6 [place] [address] Karin Zaman, FLORAL CLERK Prophylaxis for chemotherapy-induc ed neutropenia (Primary Dx); Hypokalemia; Primary cancer of left lower lobe of lung (HCC); Metastasis to bone 07/02/2025 9:00 AM CDT Lab [facility] - Lab Collection [address] [place] [address] Hypokalemia; Primary cancer of left lower lobe of lung (HCC); Metastasis to bone; Prophylaxis for chemotherapy-induc ed neutropenia 07/02/2025 Social Work [facility] Oncology [address] [place] [phone] Sarah Brunner, PRODUCT DEVELOPMENT TECHNICIAN 07/02/2025 Telephone [facility] Oncology [address] [place] [phone] Karin Zaman, FLORAL CLERK 06/27/2025 Documentation [facility] Oncology [address] [place] [address] 8 [place] [address] Sarah Brunner, PRODUCT DEVELOPMENT TECHNICIAN 06/26/2025 10:[address] [facility] - Infusion [address] [place] [address] 6 [place] [address] Prophylaxis for chemotherapy-induc ed neutropenia (Primary Dx); Hypokalemia; Primary cancer of left lower lobe of lung (HCC); Metastasis to bone 06/26/2025 10:00 AM CDT Clinical Support [facility] Oncology [address] [place] [address] 5 [place] [address] Primary cancer of left lower lobe of lung (HCC) 06/26/2025 9:30 AM CDT Office Visit [facility] Oncology [address] [place] [address] 6 [place] [address] Karin Zaman, LE Prophylaxis for chemotherapy-induc ed neutropenia (Primary Dx); Hypokalemia; Primary cancer of left lower lobe of lung (HCC); Metastasis to bone 06/26/2025 Social Work [facility] On[facility] [address] [place] [phone] Sarah Brunner, [facility] 06/26/2025 Documentation [facility] [address] [place] [address] Dagmar Pickard, RD 06/26/2025 Orders Only [facility] Oncology [address] [place] [phone] Stan Meza MD 06/26/2025 Orders Only [facility] On[facility] [address] [place] [phone] Stan Meza MD 06/25/2025 Orders Only [facility] Oncology [address] [place] [phone] Ricardo Sanon Primary cancer of left lower lobe of lung (HCC) (Primary Dx) 06/25/2025 Documentation [facility] Oncology [address] [place] [phone] Sarah Brunner, [facility] 06/25/2025 Orders Only [facility] Oncology [address] [place] [phone] Karin Zaman, LE Hypokalemia (Primary Dx); Metastasis to bone; Primary cancer of left lower lobe of lung (HCC); Prophylaxis for chemotherapy-induc ed neutropenia 06/24/2025 Telephone [facility] Oncology [address] [place] [phone] Janice Kilgore CMA 06/24/2025 Documentation [facility] Counsel[facility] [address] [place] [address] Dagmar Pickard, RD 06/23/2025 Orders Only [facility] On[facility] [address] [place] [phone] Ricardo Sanon Primary cancer of left lower lobe of lung (HCC) (Primary Dx) from Last 3 Months Immunizations Immunization Administration Dates Next Due Influenza, Quadrivalent, Hig h Dose, Preservative Free, Intrr 08/23/2024 Influenza, Quadrivalent, Rec ombinant, Egg Free, Preservative Free, Intramuscular 07/29/2022,07/26/2021 Influenza, Quadrivalent, Spl it, Intramuscular 07/17/2017,09/29/2016 Influenza, Quadrivalent, Spl it, Pediatric, Preservative Free, Intramuscular 08/23/2024 Influenza, Quadrivalent, Spl it, Preservative Free, Intramuscular 09/29/2023,08/04/2020,07/11/2019,08/09,11/02/2015 Influenza, Trivalent, IM (MDV) 11/02/2015 Influenza, Trivalent, Preser vative Free, Intramuscular 08/23/2024 Influenza, Unspecified 08/13/2020,11/02/2015 [employer] ([employer]) SARS-CoV-2 Vaccination 01/17/2021 Pneumococcal Conjugate Pcv20 07/29/2022 Pneumococcal Polysaccharide PPV23 07/11/2019 RSV, Bivalent, Protein Subun it Rsvpref, Diluent (Abrysvo) 08/23/2024 Respiratory Syncytial Virus (Rsv) Mab, Unspecified 08/23/2024 Tdap 09/29/2023,07/17/2017 Surgical History Surgery Date Site/Laterality Comments FLUORO GUIDED ASPIRATION OR INJECTION LARGE JOINT BILATERAL 10/14/2020 Bilateral FLUORO GUIDED ASPIRATION OR INJECTION LARGE JOINT BILATERAL 06/26/2019 Bilateral FLUORO GUIDED ASPIRATION OR INJECTION LARGE JOINT BILATERAL 06/26/2019 Bilateral REPLACEMENT TOTAL KNEE Left BRONCHOSCOPY 06/19/2024 Left w/ lymph node biopsy PORT PLACEMENT CHEST >5 YEARS 09/15/2025 N/A Medical History Medical History Date Comments Arthritis Asthma CHF (congestive heart failure) (HCC) COPD (chronic obstructive pulmonary disease) Coronary artery disease Hypertension Sleep apnea Lung [...] Tobacco: Every Day Cigarettes Passive Smoke Exposure: Current Smokeless Tobacco: Never Tobacco Cessation:Ready to Q uit: No; Counseling Given: Yes Alcohol Use Standard Drinks/Week Comments Never 0 (1 standard drink = 0.6 oz pur e alcohol) AUDIT-C Answer Date Recorded Q1: How often do you have a drink containing alcohol? Never 09/15/2025 Q2: How many drinks containi ng alcohol do you have on a typical day when you are drinking? Patient does not drink Q3: How often do you have si x or more drinks on one occasion? Never 09/15/2025 Personal Safety Answer Date Recorded Have you ever been in or are you currently in a harmful physical or emotional relationship or is someone making you feel afraid or unsafe? Denies 09/15/2025 Sex and Gender Information Value Date Recorded Sex Assigned at Not on file Legal Sex Male 6:04 PM LITIGATION ASSISTANT Gender Identity Not on file Sexual Orientation Not on file Last Filed Vital Signs Vital Sign Reading Time Taken Comments Blood Pressure 123/85 09/18/2025 8:00 AM LITIGATION ASSISTANT Pulse 93 09/18/2025 8:00 AM LITIGATION ASSISTANT Temperature 36.4 C (97.5 F) 09/18/2025 8:00 AM LITIGATION ASSISTANT Respiratory Rate 18 09/18/2025 8:00 AM LITIGATION ASSISTANT Oxygen Saturation 99% 09/18/2025 8:00 AM LITIGATION ASSISTANT Inhaled Oxygen Concentration - - Weight 88.6 kg (195 lb 6.4 oz) 09/18/2025 8:00 A M LITIGATION ASSISTANT Height 175.3 cm (5' 9) 09/15/2025 9:20 AM LITIGATION ASSISTANT Body Mass Index 28.86 09/15/2025 9:20 AM LITIGATION ASSISTANT Plan of Treatment Health Maintenance Due Date Last Done Comments Colon Cancer Screening-Colonoscopy 1961 Depression Screening 1961 Prostate Cancer Screening-PSA 1961 Hepatitis B Screening 1979 Regular Well Visit/Exam 18-64 1979 Zoster Vaccine (1 of 2) 1980 Covid-19 Vaccine (2024-2 6 season) 2025 09/29/2023, 09/14/2021, 01/17/2021, Additional history exists Influenza Vaccine (#1) 2025 , 08/23/2024, 08/23/2024, Additional history exists DTaP/Tdap/Td Vaccine (3 - Td or Tdap) 09/29/2033 09/29/2023, 07/17/2017 Pneumococcal vaccine <65 Completed 07/29/2022, 06/30 Hepatitis C Screening Completed 05/29/2025 Medical Devices Implanted Type Area Pre Certification Specialist Device Identifier Shelf Expiration Date Model / Serial / Lot [employer]th Knee Replacement Right: Knee [employer] Xcela Power Port 8fr [id number] - [id number] Implanted:Qty: 1 on 09/15/2025 by Manjit Jeong MD at [facility] [employer] 01/26/2030 [id number] / / [id number] Procedures Procedure Name Priority Date/Time Associated Diagnosis Comments EGFR STAT 09/18/2025 8:30 AM LITIGATION ASSISTANT Metastasis to bone Primary cancer of left lower lobe of lung (HCC) Prophylaxis for chemotherapy-induc ed neutropenia DIFFERENTIAL AUTO Routine 09/18/2025 8:3 0 AM LITIGATION ASSISTANT Metastasis to bone Primary cancer of left lower lobe of lung (HCC) Prophylaxis for chemotherapy-induc ed neutropenia CBC WITH AUTO DIFFERENTIAL Routine 09/18/2025 8:30 AM LITIGATION ASSISTANT Metastasis to bone Primary cancer of left lower lobe of lung (HCC) Prophylaxis for chemotherapy-induc ed neutropenia COMPREHENSIVE METABOLIC PANEL STAT 09/18/2025 8:30 AM LITIGATION ASSISTANT Metastasis to bone Primary cancer of left lower lobe of lung (HCC) Prophylaxis for chemotherapy-induc ed neutropenia PORT PLACEMENT CHEST >5 YEARS Schedule Routine, Read Routine (OP Routine) 09/15/2025 10:30 AM LITIGATION ASSISTANT Primary cancer of left lower lobe of lung (HCC) PROTIME-INR Routine 08/28/2025 11:15 AM CDT Primary cancer of left lower lobe of lung (HCC) EGFR STAT 08/28/2025 9:15 AM CDT Metastasis to bone Primary cancer of left lower lobe of lung (HCC) Prophylaxis for chemotherapy-induc ed neutropenia DIFFERENTIAL AUTO Routine 08/28/2025 9:1 5 AM CDT Metastasis to bone Primary cancer of left lower lobe of lung (HCC) Prophylaxis for chemotherapy-induc ed neutropenia CBC WITH AUTO DIFFERENTIAL Routine 08/28/2025 9:15 AM CDT Metastasis to bone Primary cancer of left lower lobe of lung (HCC) Prophylaxis for chemotherapy-induc ed neutropenia COMPREHENSIVE METABOLIC PANEL STAT 08/28/2025 9:15 AM CDT Metastasis to bone Primary cancer of left lower lobe of lung (HCC) Prophylaxis for chemotherapy-induc ed neutropenia MAGNESIUM STAT 08/21/2025 9:19 AM CDT Metastasis to bone Primary cancer of left lower lobe of lung (HCC) Prophylaxis for chemotherapy-induc ed neutropenia EGFR STAT 08/21/2025 9:19 AM CDT Metastasis to bone Primary cancer of left lower lobe of lung (HCC) Prophylaxis for chemotherapy-induc ed neutropenia DIFFERENTIAL AUTO Routine 08/21/2025 9:1 9 AM CDT Metastasis to bone Primary cancer of left lower lobe of lung (HCC) Prophylaxis for chemotherapy-induc ed neutropenia PHOSPHORUS STAT 08/21/2025 9:19 AM CDT Primary cancer of left lower lobe of lung (HCC) CBC WITH AUTO DIFFERENTIAL Routine 08/21/2025 9:19 AM CDT Metastasis to bone Primary cancer of left lower lobe of lung (HCC) Prophylaxis for chemotherapy-induc ed neutropenia COMPREHENSIVE METABOLIC PANEL STAT 08/21/2025 9:19 AM CDT Metastasis to bone Primary cancer of left lower lobe of lung (HCC) Prophylaxis for chemotherapy-induc ed neutropenia CT CHEST ABDOMEN PELVIS W CONTRAST Schedule MINNIE, Read MINNIE (Appt Today, Awaiting Results) 08/21/2025 8:04 AM CDT Primary cancer of left lower lobe of lung (HCC) EGFR STAT 07/31/2025 11:17 AM CDT Metastasis to bone Primary cancer of left lower lobe of lung (HCC) Prophylaxis for chemotherapy-induc ed neutropenia DIFFERENTIAL AUTO Routine 07/31/2025 11: 17 AM CDT Metastasis to bone Primary cancer of left lower lobe of lung (HCC) Prophylaxis for chemotherapy-induc ed neutropenia CBC WITH AUTO DIFFERENTIAL Routine 07/31/2025 11:17 AM CDT Metastasis to bone Primary cancer of left lower lobe of lung (HCC) Prophylaxis for chemotherapy-induc ed neutropenia COMPREHENSIVE METABOLIC PANEL STAT 07/31/2025 11:17 AM CDT Metastasis to bone Primary cancer of left lower lobe of lung (HCC) Prophylaxis for chemotherapy-induc ed neutropenia COMPREHENSIVE METABOLIC PANEL STAT 07/17/2025 1:26 PM CDT Primary cancer of left lower lobe of lung (HCC) CBC WITH AUTO DIFFERENTIAL STAT 07/17/2025 1:26 PM CDT Primary cancer of left lower lobe of lung (HCC) EGFR STAT 07/10/2025 10:50 AM CDT Primary cancer of left lower lobe of lung (HCC) DIFFERENTIAL AUTO Routine 07/10/2025 10: 50 AM CDT Primary cancer of left lower lobe of lung (HCC) CBC WITH AUTO DIFFERENTIAL Routine 07/10/2025 10:50 AM CDT Primary cancer of left lower lobe of lung (HCC) COMPREHENSIVE METABOLIC PANEL STAT 07/10/2025 10:50 AM CDT Primary cancer of left lower lobe of lung (HCC) DIFFERENTIAL AUTO Routine 07/02/2025 11: 51 AM CDT Hypokalemia Primary cancer of left lower lobe of lung (HCC) Metastasis to bone Prophylaxis for chemotherapy-induc ed neutropenia CBC WITH AUTO DIFFERENTIAL Routine 07/02/2025 11:51 AM CDT Hypokalemia Primary cancer of left lower lobe of lung (HCC) Metastasis to bone Prophylaxis for chemotherapy-induc ed neutropenia EGFR STAT 07/02/2025 10:42 AM CDT Hypokalemia Primary cancer of left lower lobe of lung (HCC) Metastasis to bone Prophylaxis for chemotherapy-induc ed neutropenia DIFFERENTIAL AUTO STAT 07/02/2025 10: 42 AM CDT Hypokalemia Primary cancer of left lower lobe of lung (HCC) Metastasis to bone Prophylaxis for chemotherapy-induc ed neutropenia CBC WITH AUTO DIFFERENTIAL STAT 07/02/2025 10:42 AM CDT Hypokalemia Primary cancer of left lower lobe of lung (HCC) Metastasis to bone Prophylaxis for chemotherapy-induc ed neutropenia COMPREHENSIVE METABOLIC PANEL STAT 07/02/2025 10:42 AM CDT Hypokalemia Primary cancer of left lower lobe of lung (HCC) Metastasis to bone Prophylaxis for chemotherapy-induc ed neutropenia URIC ACID STAT 07/02/2025 10:42 AM CDT Hypokalemia Primary cancer of left lower lobe of lung (HCC) Metastasis to bone Prophylaxis for chemotherapy-induc ed neutropenia HEPATITIS C ANTIBODY Routine 05/29/2025 12:49 PM CDT Primary cancer of left lower lobe of lung (HCC) from Last 3 Months or Most Recently Relevant to Health Maintenance Results * eGFR (09/18/2025 8:30 AM LITIGATION ASSISTANT) Pathologist [facility] eGFR >90 >=60 mL/min/1. 73 m2 Comment: [...] interpretive data was last reviewed 2021. Blood 09/18/2025 8:30 AM LITIGATION ASSISTANT 09/18/2025 8:35 AM LITIGATION ASSISTANT us Stan Meza MD LAB BLOOD ORDERABLES Yolette banda Result [facility] Department [place] [address] * (ABNORMAL) Differential, auto (09/18/2025 8:30 AM LITIGATION ASSISTANT) Neutrophil abs 2.61 1.50 - 6.50 K/cumm Comment:Testing performed by : [facility], [address] [place] [address] Lymphocyte abs 0.87 0.80 - 3.30 K/cumm [facility] Comment:Testing performed by : [facility], [address] [place] [address] Monocyte abs 0.86(H) 0.20 - 0.80 K/cumm [facility] Comment:Testing performed by : [facility], [address] [place] [address] Eosinophil abs 0.17 0.00 - 0.50 K/cumm [facility] Comment:Testing performed by : [facility], [address] [place] [address] Basophil abs 0.07 0.00 - 0.10 K/cumm [facility] Comment:Testing performed by : [facility], [address] [place] [phone] Neutrophil pct 57.0 % [facility] Comment: Interpretive Data Percent cell count reference ranges are not reported, since discordance with absolute values may lead to misinterpretation of CBC data. Current Interpretive Data was last revised on 2018. Testing performed by: [facility], [address] [place] [phone] Lymphocyte pct 19.1 % [facility] Comment: Interpretive Data Percent cell count reference ranges are not reported, since discordance with absolute values may lead to misinterpretation of CBC data. Current Interpretive Data was last revised on 2018. Testing performed by: [facility], [address] [place] [phone] Monocyte pct 18.8 % [facility] Comment: Interpretive Data Percent cell count reference ranges are not reported, since discordance with absolute values may lead to misinterpretation of CBC data. Current Interpretive Data was last revised on 2018. Testing performed by: [facility], [address] [place] [phone] Eosinophil pct 3.6 % [facility] Comment: Interpretive Data Percent cell count reference ranges are not reported, since discordance with absolute values may lead to misinterpretation of CBC data. Current Interpretive Data was last revised on 2018. Testing performed by: [facility], [address] [place] [phone] Basophil pct 1.5 % [facility] Comment: Interpretive Data Percent cell count reference ranges are not reported, since discordance with absolute values may lead to misinterpretation of CBC data. Current Interpretive Data was last revised on 2018. Testing performed by: [facility], [address] [place] [phone] Blood 09/18/2025 8:30 AM LITIGATION ASSISTANT 09/18/2025 8:34 AM LITIGATION ASSISTANT us Stan Meza MD LAB BLOOD ORDERABLES Yolette l Result [facility] Department [place] [address] * (ABNORMAL) CBC with auto differential (09/18/2025 8:30 AM LITIGATION ASSISTANT) WBC 4.57 3.80 - 9.90 K/cumm Comment:Testing performed by : [facility], [address] [place] [address] Hgb 10.0(L) 13.0 - 17.5 g/dL [facility] Comment:Testing performed by : [facility], [address] [place] [address] Hct 30.8(L) 38.9 - 50.3 % [facility] Comment:Testing performed by : [facility], [address] [place] [address] Plt 242 150 - 400 K/cumm [facility] Comment:Testing performed by : [facility], [address] [place] [address] MPV 6.8 6.8 - 10.4 fL [facility] Comment:Testing performed by : [facility], [address] [place] [address] RBC 3.66(L) 4.30 - 5.80 M/cumm [facility] Comment:Testing performed by : [facility], [address] [place] [address] MCV 84.0 81.3 - 96.4 fL [facility] Comment:Testing performed by : [facility], [address] [place] [address] MCH 27.3 27.1 - 33.3 pg [facility] Comment:Testing performed by : [facility], [address] [place] [address] MCHC 32.5 32.3 - 35.7 g/dL [facility] Comment:Testing performed by : [facility], [address] [place] [address] RDW CV 17.7(H) 11.1 - 14.9 % [facility] Comment:Testing performed by : [facility], [address] [place] [phone] NRBC abs 0.00 0.00 - 0.01 K/cumm [facility] Comment:Testing performed by : [facility], [address] [place] [phone] Blood 09/18/2025 8:30 AM LITIGATION ASSISTANT 09/18/2025 8:34 AM LITIGATION ASSISTANT us Stan Meza MD LAB BLOOD ORDERABLES Yolette l Result [facility] Department [place] [address] * (ABNORMAL) Comprehensive metabolic panel (09/18/2025 8:30 AM LITIGATION ASSISTANT) Sodium 135 135 - 145 mmol/L Potassium, pl 4.3 3.3 - 4.9 mmol/L [facility] Chloride 101 97 - 110 mmol/L [facility] CO2 27 22 - 32 mmol/L [facility] Anion gap 7 2 - 15 mmol/L [facility] BUN 6 6 - 25 mg/dL [facility] Creatinine 0.61(L) 0.80 - 1.30 mg/dL [facility] Glucose 102 70 - 199 mg/dL [facility] Comment: Interpretive Data Fasting glucose >/= 126 [...] 2022. Calcium 9.0 8.5 - 10.3 mg/dL [facility] Bilirubin, total 0.4 0.1 - 1.2 mg/dL [facility] Protein, pl 6.6 6.5 - 8.5 g/dL [facility] Albumin 3.8 3.5 - 5.0 g/dL [facility] Alk phos 106 40 - 130 Units/L [facility] ALT 10 7 - 55 Units/L [facility] AST 16 10 - 50 Units/L [facility] Blood 09/18/2025 8:30 AM LITIGATION ASSISTANT 09/18/2025 8:35 AM LITIGATION ASSISTANT us Stna Meza MD LAB BLOOD ORDERABLES Yolette veronika Result [facility] Department [place] [address] * IR Port Placement Chest > 5 Years (09/15/2025 10:30 AM LITIGATION ASSISTANT) Anatomical Region Laterality Modality Chest N/A Radio Fluoroscop y 09/15/2025 10:3 4 AM LITIGATION ASSISTANT Impressions 09/15/2025 10:34 AM LITIGATION ASSISTANT Successful chest wall port placement. PLAN: The catheter is ready for immediate use. Please note that a power injectable port was placed. When treatment is completed, removal can be scheduled by calling [facility] - [phone] [facility] - [phone] Electronically signed by: Lanie Philippe PA-C Narrative 09/15/2025 10:34 AM LITIGATION ASSISTANT EXAMINATION: PORT PLACEMENT USING ULTRASOUND GUIDANCE (STD TECHNIQUE) HISTORY: Patient is a 64 y.o. male with chief complaint of Non small cell lung cancer. 08/28/2025 indicated patient has poor peripheral venous access so might benefit from port. He presents for port placement. 08/28/25 WBC count was 10.5; INR was 1.35. He is on Eliquis 5mg BID; last dose was 09/12/25. Of note, there is no documentation of plans for radiation. Patient had coffee with creamer this morning so we will proceed with Fentanyl only. PROVIDER PRESENCE: Lanie Philippe PA-C was present from the beginning to the end of the procedure. SEDATION: Fentanyl only. TECHNIQUE: The risks, benefits and alternatives were discussed and informed consent was obtained. Prior to beginning the procedure, [place] Protocol was used to confirm the patient's identity and planned procedure. Fluoroscopy time has been recorded in the electronic medical record. Prior to the procedure, the central veins were evaluated by ultrasound, an image of the patent vein was recorded and placed in the patient's electronic medical record. Maximum sterile barriers including cap, mask, hand hygiene, sterile gloves, sterile gown, large sterile drape and 2% chlorhexidine for cutaneous antisepsis were used. The skin over the right internal jugular vein was sterilely prepped, draped and infiltrated with 1% buffered lidocaine. The vein was accessed with a 21 gauge needle using realtime ultrasound guidance. A guidewire and catheter were then passed centrally using fluoroscopic guidance. The intravascular length from the access site to the right atrium was then measured. After infiltrating the skin in the subclavicular region with 1% buffered lidocaine, a short transverse incision was made and the pocket for the power injectable port reservoir was formed by blunt dissection. The catheter was tunneled to the IJ access site, cut to the appropriate length and inserted through a peel-away sheath. The catheter was flushed with 100U/ml heparin and the access needle removed. The deep tissues were approximated using 3-0 Vicryl and 4-0 Monocryl and the incision closed using skin glue. The incision in the lower neck was closed in a similar fashion. ESTIMATED BLOOD LOSS: Minimal. CONDITION: Stable DISCHARGED TO: outpatient recovery. FINDINGS: Ultrasound image shows a patent vein in the lower neck. The final fluoroscopic image demonstrates the catheter with its tip at the cavoatrial junction. No complications are seen. Procedure Note Lanie Philippe PA - 09/15/2025 EXAMINATION: PORT PLACEMENT USING ULTRASOUND GUIDANCE (STD TECHNIQUE) HISTORY: Patient is a 64 y.o. male with chief complaint of Non small cell lung cancer. 08/28/2025 indicated patient has poor peripheral venous access so might benefit from port. He presents for port placement. 08/28/25 WBC count was 10.5; INR was 1.35. He is on Eliquis 5mg BID; last dose was 09/12/25. Of note, there is no documentation of plans for radiation. Patient had coffee with creamer this morning so we will proceed with Fentanyl only. PROVIDER PRESENCE: Lanie Philippe PA-C was present from the beginning to the end of the procedure. SEDATION: Fentanyl only. TECHNIQUE: The risks, benefits and alternatives were discussed and informed consent was obtained. Prior to beginning the procedure, [place] Protocol was used to confirm the patient's identity and planned procedure. Fluoroscopy time has been recorded in the electronic medical record. Prior to the procedure, the central veins were evaluated by ultrasound, an image of the patent vein was recorded and placed in the patient's electronic medical record. Maximum sterile barriers including cap, mask, hand hygiene, sterile gloves, sterile gown, large sterile drape and 2% chlorhexidine for cutaneous antisepsis were used. The skin over the right internal jugular vein was sterilely prepped, draped and infiltrated with 1% buffered lidocaine. The vein was accessed with a 21 gauge needle using realtime ultrasound guidance. A guidewire and catheter were then passed centrally using fluoroscopic guidance. The intravascular length from the access site to the right atrium was then measured. After infiltrating the skin in the subclavicular region with 1% buffered lidocaine, a short transverse incision was made and the pocket for the power injectable port reservoir was formed by blunt dissection. The catheter was tunneled to the IJ access site, cut to the appropriate length and inserted through a peel-away sheath. The catheter was flushed with 100U/ml heparin and the access needle removed. The deep tissues were approximated using 3-0 Vicryl and 4-0 Monocryl and the incision closed using skin glue. The incision in the lower neck was closed in a similar fashion. ESTIMATED BLOOD LOSS: Minimal. CONDITION: Stable DISCHARGED TO: outpatient recovery. FINDINGS: Ultrasound image shows a patent vein in the lower neck. The final fluoroscopic image demonstrates the catheter with its tip at the cavoatrial junction. No complications are seen. IMPRESSION: Successful chest wall port placement. PLAN: The catheter is ready for immediate use. Please note that a power injectable port was placed. When treatment is completed, removal can be scheduled by calling [facility] - [phone] [facility] - [phone] Electronically signed by: Lanie Philippe PA-C us Stan Meza MD [facility] [place]ED[facility] Final R esult * (ABNORMAL) Protime-INR (08/28/2025 11:15 AM CDT) PT 15.2(H) 10.2 - 13.5 sec INR 1.35(H) 0.90 - 1.20 [facility] Comment: Interpretive data Oral anticoagulant therapeutic ranges: Venous thromboembolism prophylaxis or treatment: 2.0-3.0 CARDIOLOGY Standard range: 2.0-3.0 High-intensity range: 2.5-3.5 Refer to indication-specific guidelines for appropriate target ranges for prosthetic heart valve replacement. Current interpretive data was last revised on 2019. Blood 08/28/2025 11:1 5 AM CDT 08/28/2025 11:39 AM CDT us Stan Meza MD LAB BLOOD ORDERABLES Yolette banda Result [facility] Department [place] [address] * eGFR (08/28/2025 9:15 AM CDT) eGFR >90 >=60 mL/min/1. 73 [...] interpretive data was last reviewed 2021. Blood 08/28/2025 9:15 AM CDT 08/28/2025 9:21 AM CDT us Stan Meza MD LAB BLOOD ORDERABLES Yolette banda Result [facility] Department [place] [address] * (ABNORMAL) Differential, auto (08/28/2025 9:15 AM CDT) Neutrophil abs 1.79 1.50 - 6.50 K/cumm Comment:Testing performed by : [facility], [address] [place], [place] [id number] Lymphocyte abs 1.10 0.80 - 3.30 K/cumm [facility] Comment:Testing performed by : [facility], [address] [place] [phone] Monocyte abs 0.75 0.20 - 0.80 K/cumm [facility] Comment:Testing performed by : [facility], [address] [place], [place] [id number] Eosinophil abs 0.82(H) 0.00 - 0.50 K/cumm [facility] Comment:Testing performed by : [facility], [address] [place] [phone] Basophil abs 0.06 0.00 - 0.10 K/cumm [facility] Comment:Testing performed by : [facility], [address] [place] [phone] Neutrophil pct 39.6 % [facility] Comment: Interpretive Data Percent cell count reference ranges are not reported, since discordance with absolute values may lead to misinterpretation of CBC data. Current Interpretive Data was last revised on 2018. Testing performed by: [facility], [address] [place] [address] Lymphocyte pct 24.4 % [facility] Comment: Interpretive Data Percent cell count reference ranges are not reported, since discordance with absolute values may lead to misinterpretation of CBC data. Current Interpretive Data was last revised on 2018. Testing performed by: [facility], [address] [place] [phone] Monocyte pct 16.6 % [facility] Comment: Interpretive Data Percent cell count reference ranges are not reported, since discordance with absolute values may lead to misinterpretation of CBC data. Current Interpretive Data was last revised on 2018. Testing performed by: [facility], [address] [place] [phone] Eosinophil pct 18.0 % [facility] Comment: Interpretive Data Percent cell count reference ranges are not reported, since discordance with absolute values may lead to misinterpretation of CBC data. Current Interpretive Data was last revised on 2018. Testing performed by: [facility], [address] [place] [phone] Basophil pct 1.3 % [facility] Comment: Interpretive Data Percent cell count reference ranges are not reported, since discordance with absolute values may lead to misinterpretation of CBC data. Current Interpretive Data was last revised on 2018. Testing performed by: [facility], [address] [place] [phone] Blood 08/28/2025 9:15 AM CDT 08/28/2025 9:25 AM CDT us Stan Meza MD LAB BLOOD ORDERABLES Yolette l Result [facility] Department [place] [address] * (ABNORMAL) CBC with auto differential (08/28/2025 9:15 AM CDT) WBC 4.52 3.80 - 9.90 K/cumm Comment:Testing performed by : [facility], [address] [place] [phone] Hgb 10.5(L) 13.0 - 17.5 g/dL [facility] Comment:Testing performed by : [facility], [address] [place] [address] Hct 32.5(L) 38.9 - 50.3 % [facility] Comment:Testing performed by : [facility], [address] [place], [place] [phone] Plt 219 150 - 400 K/cumm [facility] Comment:Testing performed by : [facility], [address] [place], [place] [phone] MPV 7.4 6.8 - 10.4 fL [facility] Comment:Testing performed by : [facility], [address] [place], [place] [phone] RBC 3.88(L) 4.30 - 5.80 M/cumm [facility] Comment:Testing performed by : [facility], [address] [place], [place] [phone] MCV 83.8 81.3 - 96.4 fL [facility] Comment:Testing performed by : [facility], [address] [place], [place] [phone] MCH 27.0(L) 27.1 - 33.3 pg [facility] Comment:Testing performed by : [facility], [address] [place], [place] [phone] MCHC 32.2(L) 32.3 - 35.7 g/dL [facility] Comment:Testing performed by : [facility], [address] [place], [place] [phone] RDW CV 18.9(H) 11.1 - 14.9 % [facility] Comment:Testing performed by : [facility], [address] [place], [place] [phone] NRBC abs 0.00 0.00 - 0.01 K/cumm [facility] Comment:Testing performed by : [facility], [address] [place], [place] [phone] Blood 08/28/2025 9:15 AM CDT 08/28/2025 9:25 AM CDT us Stan Meza MD LAB BLOOD ORDERABLES Yolette veronika Result [facility] Department [place] [address] * (ABNORMAL) Comprehensive metabolic panel (08/28/2025 9:15 AM CDT) Sodium 136 135 - 145 mmol/L Potassium, pl 4.2 3.3 - 4.9 mmol/L [facility] Chloride 103 97 - 110 mmol/L [facility] CO2 24 22 - 32 mmol/L [facility] Anion gap 9 2 - 15 mmol/L [facility] BUN 5(L) 6 - 25 mg/dL [facility] Creatinine 0.65(L) 0.80 - 1.30 mg/dL [facility] Glucose 94 70 - 199 mg/dL [facility] Comment: Interpretive Data Fasting glucose >/= 126 [...] 2022. Calcium 9.4 8.5 - 10.3 mg/dL [facility] Bilirubin, total 0.3 0.1 - 1.2 mg/dL [facility] Protein, pl 6.9 6.5 - 8.5 g/dL [facility] Albumin 3.8 3.5 - 5.0 g/dL [facility] Alk phos 121 40 - 130 Units/L [facility] ALT 10 7 - 55 Units/L [facility] AST 16 10 - 50 Units/L [facility] Blood 08/28/2025 9:15 AM CDT 08/28/2025 9:21 AM CDT us Stan Meza MD LAB BLOOD ORDERABLES Yolette veronika Result [facility] Department [place] [address] * eGFR (08/21/2025 9:19 AM CDT) [facility] eGFR >90 >=60 mL/min/1. 73 m2 [...] interpretive data was last reviewed 2021. Blood 08/21/2025 9:19 AM CDT 08/21/2025 9:31 AM CDT us Stan Meza MD LAB BLOOD ORDERABLES Yolette banda Result [facility] Department [place] [address] * Differential, auto (08/21/2025 9:19 AM CDT) [facility] Neutrophil abs 3.36 1.50 - 6.50 K/cumm Comment:Testing performed by : [facility], [address] [place] [phone] Lymphocyte abs 0.99 0.80 - 3.30 K/cumm [facility] Comment:Testing performed by : [facility], [address] [place] [phone] Monocyte abs 0.68 0.20 - 0.80 K/cumm [facility] Comment:Testing performed by : [facility], [address] [place] [phone] Eosinophil abs 0.02 0.00 - 0.50 K/cumm [facility] Comment:Testing performed by : [facility], [address] [place] [phone] Basophil abs 0.08 0.00 - 0.10 K/cumm [facility] Comment:Testing performed by : [facility], [address] [place] [phone] Neutrophil pct 65.6 % [facility] Comment: Interpretive Data Percent cell count reference ranges are not reported, since discordance with absolute values may lead to misinterpretation of CBC data. Current Interpretive Data was last revised on 2018. Testing performed by: [facility], [address] [place] [phone] Lymphocyte pct 19.3 % [facility] Comment: Interpretive Data Percent cell count reference ranges are not reported, since discordance with absolute values may lead to misinterpretation of CBC data. Current Interpretive Data was last revised on 2018. Testing performed by: [facility], [address] [place] [phone] Monocyte pct 13.3 % [facility] Comment: Interpretive Data Percent cell count reference ranges are not reported, since discordance with absolute values may lead to misinterpretation of CBC data. Current Interpretive Data was last revised on 2018. Testing performed by: [facility], [address] [place] [phone] Eosinophil pct 0.4 % [facility] Comment: Interpretive Data Percent cell count reference ranges are not reported, since discordance with absolute values may lead to misinterpretation of CBC data. Current Interpretive Data was last revised on 2018. Testing performed by: [facility], [address] [place] [phone] Basophil pct 1.5 % [facility] Comment: Interpretive Data Percent cell count reference ranges are not reported, since discordance with absolute values may lead to misinterpretation of CBC data. Current Interpretive Data was last revised on 2018. Testing performed by: [facility], [address] [place] [phone] Blood 08/21/2025 9:19 AM CDT 08/21/2025 9:23 AM CDT us Stan Meza MD LAB BLOOD ORDERABLES Yolette veronika Result [facility] Department [place] [address] * (ABNORMAL) CBC with auto differential (08/21/2025 9:19 AM CDT) WBC 5.13 3.80 - 9.90 K/cumm Comment:Testing performed by : [facility], [address] [place] [address] Hgb 10.7(L) 13.0 - 17.5 g/dL [facility] Comment:Testing performed by : [facility], [address] [place] [address] Hct 33.5(L) 38.9 - 50.3 % [facility] Comment:Testing performed by : [facility], [address] [place] [address] Plt 237 150 - 400 K/cumm [facility] Comment:Testing performed by : [facility], [address] [place] [address] MPV 7.3 6.8 - 10.4 fL [facility] Comment:Testing performed by : [facility], [address] [place] [address] RBC 3.99(L) 4.30 - 5.80 M/cumm [facility] Comment:Testing performed by : [facility], [address] [place] [address] MCV 83.9 81.3 - 96.4 fL [facility] Comment:Testing performed by : [facility], [address] [place] [address] MCH 26.8(L) 27.1 - 33.3 pg [facility] Comment:Testing performed by : [facility], [address] [place] [address] MCHC 31.9(L) 32.3 - 35.7 g/dL [facility] Comment:Testing performed by : [facility], [address] [place] [address] RDW CV 19.7(H) 11.1 - 14.9 % [facility] Comment:Testing performed by : [facility], [address] [place] [address] NRBC abs 0.00 0.00 - 0.01 K/cumm [facility] Comment:Testing performed by : [facility], [address] [place] [address] Blood 08/21/2025 9:19 AM CDT 08/21/2025 9:23 AM CDT Stan Meza MD LAB BLOOD ORDERABLES Yolette l Result [facility] [place] [address] * Phosphorus (08/21/2025 9:19 AM CDT) Phosphorus, pl 2.7 2.3 - 4.5 mg/dL Blood 08/21/2025 9:19 AM CDT 08/21/2025 9:31 AM CDT Stan Meza MD LAB BLOOD ORDERAB[place] [address] * Magnesium (08/21/2025 9:19 AM CDT) Magnesium 1.8 1.4 - 2.5 mg/dL Blood 08/21/2025 9:19 AM CDT 08/21/2025 9:31 AM CDT us Stan Meza MD LAB BLOOD ORDERABLES Yolette banda Result [facility] Department [place] [address] * (ABNORMAL) Comprehensive metabolic panel (08/21/2025 9:19 AM CDT) Sodium 137 135 - 145 mmol/L Potassium, pl 4.0 3.3 - 4.9 mmol/L [facility] Chloride 104 97 - 110 mmol/L [facility] CO2 24 22 - 32 mmol/L [facility] Anion gap 9 2 - 15 mmol/L [facility] BUN 6 6 - 25 mg/dL [facility] Creatinine 0.62(L) 0.80 - 1.30 mg/dL [facility] Glucose 137 70 - 199 mg/dL [facility] Comment: Interpretive Data Fasting glucose >/= 126 [...] 2022. Calcium 8.9 8.5 - 10.3 mg/dL [facility] Bilirubin, total 0.6 0.1 - 1.2 mg/dL [facility] Protein, pl 6.8 6.5 - 8.5 g/dL [facility] Albumin 3.9 3.5 - 5.0 g/dL [facility] Alk phos 114 40 - 130 Units/L [facility] ALT 13 7 - 55 Units/L [facility] AST 18 10 - 50 Units/L [facility] Blood 08/21/2025 9:19 AM CDT 08/21/2025 9:31 AM CDT us Stan Meza MD LAB BLOOD ORDERABLES Yolette veronika Result [facility] Department [place] [address] * CT Chest Abdomen Pelvis W Contrast (08/21/2025 8:04 AM CDT) Anatomical Region Laterality Modality Body N/A Computed Tomogra phy 08/21/2025 8:14 AM CDT Impressions 08/21/2025 8:14 AM CDT 1. Slight increase in size of the right lower lobe nodule with increase in right hilar lymphadenopathy. Left adrenal gland metastasis is also slightly larger. 2. No change in right adrenal gland metastasis. No change in a left central mass. 3. No change in findings suggesting organizing pneumonia. 4. No change in a sternal pathologic fracture. Electronically signed by: Rony Miranda M.D. Narrative 08/21/2025 8:14 AM CDT EXAMINATION: CT CHEST, ABDOMEN AND PELVIS WITH INTRAVENOUS CONTRAST TECHNIQUE: Standard CT of the chest, abdomen and pelvis was performed after the administration of intravenous contrast. Studies were performed after the administration of the following amount of Optiray 350: 90 mL HISTORY: Non-small cell lung cancer FINDINGS: Comparison is made to prior study of 06/17/2025 Chest: Again seen are peripheral groundglass opacities within the lungs which may represent areas of organizing pneumonia. A right lower lobe pulmonary nodule is noted at slice position 152 that measures 7 mm. On the prior study this nodule measured 4 mm. Again seen are changes in the left upper lobe which may represent changes of radiation. No supraclavicular or axillary lymphadenopathy. Again seen is matted lymphadenopathy adjacent to the left upper lobe bronchus. This is unchanged when compared to the prior study. An aorto pulmonary window lymph node is again seen measuring 2 cm that change. There is some mild mucus plugging in the left upper lobe. A lymph node adjacent to the bronchus intermedius near the superior segment pulmonary artery is seen today to measure about 1 cm. Previously this measured 5 mm. A right infrahilar lymph node is seen which is unchanged at 120.0. Mild elevation of left hemidiaphragm is noted which may represent phrenic nerve palsy given the central left lesion. The heart size is normal. Mild coronary atherosclerosis is seen. Abdomen/pelvis: A right adrenal gland lesion is seen in keeping with metastasis without change. Left adrenal gland metastasis is again noted. On the prior study it measured 1.4 x 1.1 cm. On today's study it measures slightly larger at 1.8 x 2.0 cm. Tiny cyst is seen liver but there is no biliary ductal dilatation. The gallbladder is fluid-filled but not thickened. Left renal cysts are seen but there is no hydronephrosis. Right renal cyst seen but no hydronephrosis. The abdominal aorta is atherosclerotic but not aneurysmal. The colon and small bowel are normal in course and caliber. There is no evidence for bowel structure. The urinary bladder is fluid-filled but not thickened. Bone windows do not demonstrate any osseous lesion. Mild degenerative changes in lower lumbar spine. Old rib fractures are seen on the left. Stable pathologic fracture of the sternum again noted. Compression deformity of L2 again seen. Procedure Note Rony Miranda MD - 08/21/2025 EXAMINATION: CT CHEST, ABDOMEN AND PELVIS WITH INTRAVENOUS CONTRAST TECHNIQUE: Standard CT of the chest, abdomen and pelvis was performed after the administration of intravenous contrast. Studies were performed after the administration of the following amount of Optiray 350: 90 mL HISTORY: Non-small cell lung cancer FINDINGS: Comparison is made to prior study of 06/17/2025 Chest: Again seen are peripheral groundglass opacities within the lungs which may represent areas of organizing pneumonia. A right lower lobe pulmonary nodule is noted at slice position 152 that measures 7 mm. On the prior study this nodule measured 4 mm. Again seen are changes in the left upper lobe which may represent changes of radiation. No supraclavicular or axillary lymphadenopathy. Again seen is matted lymphadenopathy adjacent to the left upper lobe bronchus. This is unchanged when compared to the prior study. An aorto pulmonary window lymph node is again seen measuring 2 cm that change. There is some mild mucus plugging in the left upper lobe. A lymph node adjacent to the bronchus intermedius near the superior segment pulmonary artery is seen today to measure about 1 cm. Previously this measured 5 mm. A right infrahilar lymph node is seen which is unchanged at 120.0. Mild elevation of left hemidiaphragm is noted which may represent phrenic nerve palsy given the central left lesion. The heart size is normal. Mild coronary atherosclerosis is seen. Abdomen/pelvis: A right adrenal gland lesion is seen in keeping with metastasis without change. Left adrenal gland metastasis is again noted. On the prior study it measured 1.4 x 1.1 cm. On today's study it measures slightly larger at 1.8 x 2.0 cm. Tiny cyst is seen liver but there is no biliary ductal dilatation. The gallbladder is fluid-filled but not thickened. Left renal cysts are seen but there is no hydronephrosis. Right renal cyst seen but no hydronephrosis. The abdominal aorta is atherosclerotic but not aneurysmal. The colon and small bowel are normal in course and caliber. There is no evidence for bowel structure. The urinary bladder is fluid-filled but not thickened. Bone windows do not demonstrate any osseous lesion. Mild degenerative changes in lower lumbar spine. Old rib fractures are seen on the left. Stable pathologic fracture of the sternum again noted. Compression deformity of L2 again seen. IMPRESSION: 1. Slight increase in size of the right lower lobe nodule with increase in right hilar lymphadenopathy. Left adrenal gland metastasis is also slightly larger. 2. No change in right adrenal gland metastasis. No change in a left central mass. 3. No change in findings suggesting organizing pneumonia. 4. No change in a sternal pathologic fracture. Electronically signed by: Rony Miranda M.D. Stan Meza MD [facility] [place] PROCEDURES Final R esult * eGFR (07/31/2025 11:17 AM CDT) eGFR >90 >=60 mL/min/1. 73 [...] interpretive data was last reviewed 2021. Blood 07/31/2025 11:1 7 AM CDT 07/31/2025 11:28 AM CDT us Stan Meza MD LAB BLOOD ORDERABLES Yolette banda Result [facility] Department [place] [address] * (ABNORMAL) Differential, auto (07/31/2025 11:17 AM CDT) Neutrophil abs 2.74 1.50 - 6.50 K/cumm Comment:Testing performed by : [facility], [address] [place] [address] Lymphocyte abs 1.32 0.80 - 3.30 K/cumm [facility] Comment:Testing performed by : [facility], [address] [place] [address] Monocyte abs 1.04(H) 0.20 - 0.80 K/cumm [facility] Comment:Testing performed by : [facility], [address] [place] [address] Eosinophil abs 0.19 0.00 - 0.50 K/cumm [facility] Comment:Testing performed by : [facility], [address] [place] [address] Basophil abs 0.11(H) 0.00 - 0.10 K/cumm [facility] Comment:Testing performed by : [facility], [address] [place] [phone] Neutrophil pct 50.8 % [facility] Comment: Interpretive Data Percent cell count reference ranges are not reported, since discordance with absolute values may lead to misinterpretation of CBC data. Current Interpretive Data was last revised on 2018. Testing performed by: [facility], [address] [place] [phone] Lymphocyte pct 24.4 % [facility] Comment: Interpretive Data Percent cell count reference ranges are not reported, since discordance with absolute values may lead to misinterpretation of CBC data. Current Interpretive Data was last revised on 2018. Testing performed by: [facility], [address] [place] [phone] Monocyte pct 19.3 % [facility] Comment: Interpretive Data Percent cell count reference ranges are not reported, since discordance with absolute values may lead to misinterpretation of CBC data. Current Interpretive Data was last revised on 2018. Testing performed by: [facility], [address] [place] [phone] Eosinophil pct 3.5 % [facility] Comment: Interpretive Data Percent cell count reference ranges are not reported, since discordance with absolute values may lead to misinterpretation of CBC data. Current Interpretive Data was last revised on 2018. Testing performed by: [facility], [address] [place] [phone] Basophil pct 2.0 % [facility] Comment: Interpretive Data Percent cell count reference ranges are not reported, since discordance with absolute values may lead to misinterpretation of CBC data. Current Interpretive Data was last revised on 2018. Testing performed by: [facility], [address] [place] [phone] Blood 07/31/2025 11:1 7 AM CDT 07/31/2025 11:22 AM CDT us Stan Meza MD LAB BLOOD ORDERABLES Yolette veronika Result [facility] Department of Laboratories [place] [id number] * (ABNORMAL) CBC with auto differential (07/31/2025 11:17 AM CDT) WBC 5.40 3.80 - 9.90 K/cumm Comment:Testing performed by : [facility], [address] [place] [address] Hgb 10.4(L) 13.0 - 17.5 g/dL [facility] Comment:Testing performed by : [facility], [address] [place] [address] Hct 31.5(L) 38.9 - 50.3 % [facility] Comment:Testing performed by : [facility], [address] [place] [address] Plt 257 150 - 400 K/cumm [facility] Comment:Testing performed by : [facility], [address] [place] [address] MPV 6.9 6.8 - 10.4 fL [facility] Comment:Testing performed by : [facility], [address] [place] [address] RBC 3.97(L) 4.30 - 5.80 M/cumm [facility] Comment:Testing performed by : [facility], [address] [place] [address] MCV 79.5(L) 81.3 - 96.4 fL [facility] Comment:Testing performed by : [facility], [address] [place] [address] MCH 26.2(L) 27.1 - 33.3 pg [facility] Comment:Testing performed by : [facility], [address] [place] [address] MCHC 33.0 32.3 - 35.7 g/dL [facility] Comment:Testing performed by : [facility], [address] [place] [address] RDW CV 18.4(H) 11.1 - 14.9 % [facility] Comment:Testing performed by : [facility], [address] [place] [phone] NRBC abs 0.00 0.00 - 0.01 K/cumm [facility] Comment:Testing performed by : [facility], [address] [place] [phone] Blood 07/31/2025 11:1 7 AM CDT 07/31/2025 11:22 AM CDT us Stan Meza MD LAB BLOOD ORDERABLES Yolette veronika Result [facility] Department [place] [address] * (ABNORMAL) Comprehensive metabolic panel (07/31/2025 11:17 AM CDT) Sodium 138 135 - 145 mmol/L Potassium, pl 4.3 3.3 - 4.9 mmol/L [facility] Chloride 104 97 - 110 mmol/L [facility] CO2 25 22 - 32 mmol/L [facility] Anion gap 9 2 - 15 mmol/L [facility] BUN 5(L) 6 - 25 mg/dL [facility] Creatinine 0.68(L) 0.80 - 1.30 mg/dL [facility] Glucose 85 70 - 199 mg/dL [facility] Comment: Interpretive Data Fasting glucose >/= 126 [...] interpretive data was last revised 2022. Calcium 9.2 8.5 - 10.3 mg/dL [facility] Bilirubin, total 0.6 0.1 - 1.2 mg/dL [facility] Protein, pl 6.6 6.5 - 8.5 g/dL [facility] Albumin 3.7 3.5 - 5.0 g/dL [facility] Alk phos 118 40 - 130 Units/L [facility] ALT 10 7 - 55 Units/L [facility] AST 16 10 - 50 Units/L [facility] Blood 07/31/2025 11:1 7 AM CDT 07/31/2025 11:28 AM CDT us Stan Meza MD LAB BLOOD ORDERABLES Yolette veronika Result [facility] Department [place] [address] * (ABNORMAL) CBC with auto differential (07/17/2025 1:26 PM CDT) WBC 11.7(H) 3.8 - 10.8 Thousand/ uL [facility] RBC, POC 4.41 4.20 - 5.80 Million/u L [facility] Hgb 11.4(L) 13.2 - 17.1 g/dL [facility] Hct 37.7(L) 38.5 - 50.0 % [facility] MCV 85.5 80.0 - 100.0 fL [facility] MCH 25.9(L) 27.0 - 33.0 pg [facility] MCHC 30.2(L) 32.0 - 36.0 g/dL [facility] Comment: For adults, a slight decrease in the calculated MCHC value (in the range of 30 to 32 g/dL) is most likely not clinically significant; however, it should be interpreted with caution in correlation with other red cell parameters and the patient's clinical condition. Rdw 15.7(H) 11.0 - 15.0 % [facility] Neutrophils, abs 6,552 1,500 - 7,800 cells/uL [facility] Neutrophil bands, abs 117 0 - 750 cells/uL [facility] Metamyelocytes, abs 234(H) 0 cells/uL [facility] Myelocytes, abs 585(H) 0 cells/uL [facility] Lymphocytes, abs 1,872 850 - 3,900 cells/uL [facility] Monocyte abs 2,340(H) 200 - 950 cells/uL [facility] Eosinophils, abs 0(L) 15 - 500 cells/uL [facility] Basophils, abs 0 0 - 200 cells/uL [facility] Neutrophils 56 % [facility] Neutrophilic bands 1 % [facility] Metamyelocyte pct 2(H) % [facility] Myelocyte pct 5(H) % [facility] Lymphocyte pct 16 % [facility] Monocytes 20 % [facility] Eosinophils 0 % [facility] Basophils 0 % [facility] Comment [facility] Comment: RBC morphology is unremarkable The smear has been manually reviewed and the manual differential has been reported. Platelets TNP Thousand/ uL [facility] Comment: TEST(S) NOT PERFORMED: PLATELET COUNT MPV Unable to report due to significant platelet clumping. Platelet estimate appears normal. Blood 07/17/2025 1:26 PM CDT 07/17/2025 1:27 PM CDT Narrative [facility] - 07/18/2025 5:29 AM CDT FASTING:NO FASTING: NO Stan Meza MD LAB BLOOD ORDERABLES Yolette l Result [facility] [address] [place] [address] * (ABNORMAL) Comprehensive metabolic panel (07/17/2025 1:26 PM CDT) Pathologist [facility] Glucose 79 65 - 139 mg/dL [facility] Comment: Non-fasting reference interval BUN 5(L) 7 - 25 mg/dL [facility] Creatinine 0.77 0.70 - 1.35 mg/dL [facility] eGFR 101 > OR = 60 mL/min/1.7 3m2 [facility] BUN/creat ratio 6 6 - 22 (calc) [facility] Sodium 133(L) 135 - 146 mmol/L [facility] Potassium, pl 4.6 3.5 - 5.3 mmol/L [facility] Chloride 99 98 - 110 mmol/L [facility] CO2 25 20 - 32 mmol/L [facility] Calcium 9.2 8.6 - 10.3 mg/dL [facility] Protein, sr 6.4 6.1 - 8.1 g/dL [facility] Albumin 4.1 3.6 - 5.1 g/dL [facility] GLOBULIN 2.3 1.9 - 3.7 g/dL (calc) [facility] Alb/glob ratio 1.8 1.0 - 2.5 (calc) [facility] Bilirubin, total 0.5 0.2 - 1.2 mg/dL [facility] Alk phos 133 35 - 144 U/L [facility] AST 14 10 - 35 U/L [facility] ALT (SGPT) 14 9 - 46 U/L [facility] Blood 07/17/2025 1:26 PM CDT 07/17/2025 1:27 PM CDT Narrative [facility] - 07/18/2025 5:29 AM CDT FASTING:NO FASTING: NO Stan Meza MD LAB BLOOD ORDERABLES Yolette banda Result [facility] [address] [place] [address] * eGFR (07/10/2025 10:50 AM CDT) eGFR >90 >=60 mL/min/1. [...] interpretive data was last reviewed 2021. Blood 07/10/2025 10:5 0 AM CDT 07/10/2025 10:57 AM CDT us Stan Meza MD LAB BLOOD ORDERABLES Yolette banda Result [facility] Department [place] [address] * Differential, auto (07/10/2025 10:50 AM CDT) Neutrophil abs 1.71 1.50 - 6.50 K/cumm Comment:Testing performed by : [facility], [address] [place] [address] Lymphocyte abs 1.09 0.80 - 3.30 K/cumm [facility] Comment:Testing performed by : [facility], [address] [place] [phone] Monocyte abs 0.66 0.20 - 0.80 K/cumm [facility] Comment:Testing performed by : [facility], [address] [place], [place] [id number] Eosinophil abs 0.36 0.00 - 0.50 K/cumm [facility] Comment:Testing performed by : [facility], [address] [place] [address] Basophil abs 0.05 0.00 - 0.10 K/cumm [facility] Comment:Testing performed by : [facility] [facility], [address] [place] [address] Neutrophil pct 44.1 % [facility] Comment: Interpretive Data Percent cell count reference ranges are not reported, since discordance with absolute values may lead to misinterpretation of CBC data. Current Interpretive Data was last revised on 2018. Testing performed by: [facility], [address] [place] [phone] Lymphocyte pct 28.1 % [facility] Comment: Interpretive Data Percent cell count reference ranges are not reported, since discordance with absolute values may lead to misinterpretation of CBC data. Current Interpretive Data was last revised on 2018. Testing performed by: [facility], [address] [place] [phone] Monocyte pct 17.1 % [facility] Comment: Interpretive Data Percent cell count reference ranges are not reported, since discordance with absolute values may lead to misinterpretation of CBC data. Current Interpretive Data was last revised on 2018. Testing performed by: [facility], [address] [place] [phone] Eosinophil pct 9.4 % [facility] Comment: Interpretive Data Percent cell count reference ranges are not reported, since discordance with absolute values may lead to misinterpretation of CBC data. Current Interpretive Data was last revised on 2018. Testing performed by: [facility], [address] [place] [phone] Basophil pct 1.3 % [facility] Comment: Interpretive Data Percent cell count reference ranges are not reported, since discordance with absolute values may lead to misinterpretation of CBC data. Current Interpretive Data was last revised on 2018. Testing performed by: [facility], [address] [place] [phone] Blood 07/10/2025 10:5 0 AM CDT 07/10/2025 10:54 AM CDT us Stan Meza MD LAB BLOOD ORDERABLES Yolette banda Result [facility] Department [place] [address] * (ABNORMAL) CBC with auto differential (07/10/2025 10:50 AM CDT) WBC 3.88 3.80 - 9.90 K/cumm Comment:Testing performed by : [facility], [address] [place] [address] Hgb 11.2(L) 13.0 - 17.5 g/dL [facility] Comment:Testing performed by : [facility], [address] [place] [address] Hct 35.0(L) 38.9 - 50.3 % [facility] Comment:Testing performed by : [facility], [address] [place] [address] Plt 159 150 - 400 K/cumm [facility] Comment:Testing performed by : [facility], [address] [place], [place] [id number] MPV 7.5 6.8 - 10.4 fL [facility] Comment:Testing performed by : [facility], [address] [place], [place] [phone] RBC 4.32 4.30 - 5.80 M/cumm [facility] Comment:Testing performed by : [facility], [address] [place] [address] MCV 80.9(L) 81.3 - 96.4 fL [facility] Comment:Testing performed by : [facility], [address] [place] [address] MCH 25.8(L) 27.1 - 33.3 pg [facility] Comment:Testing performed by : [facility], [address] [place] [address] MCHC 31.9(L) 32.3 - 35.7 g/dL [facility] Comment:Testing performed by : [facility], [address] [place] [address] RDW CV 17.2(H) 11.1 - 14.9 % [facility] Comment:Testing performed by : [facility], [address] [place] [address] NRBC abs 0.00 0.00 - 0.01 K/cumm [facility] Comment:Testing performed by : [facility], [address] [place] [address] Blood 07/10/2025 10:5 0 AM CDT 07/10/2025 10:54 AM CDT us Stan Meza MD LAB BLOOD ORDERABLES Yolette l Result [facility] Department [place] [address] * (ABNORMAL) Comprehensive metabolic panel (07/10/2025 10:50 AM CDT) Sodium 137 135 - 145 mmol/L Potassium, pl 4.3 3.3 - 4.9 mmol/L [facility] Chloride 101 97 - 110 mmol/L [facility] CO2 26 22 - 32 mmol/L [facility] Anion gap 10 2 - 15 mmol/L [facility] BUN 3(L) 6 - 25 mg/dL [facility] Creatinine 0.64(L) 0.80 - 1.30 mg/dL [facility] Glucose 108 70 - 199 mg/dL [facility] Comment: Interpretive Data Fasting glucose >/= 126 [...] 2022. Calcium 9.6 8.5 - 10.3 mg/dL [facility] Bilirubin, total 0.3 0.1 - 1.2 mg/dL [facility] Protein, pl 6.8 6.5 - 8.5 g/dL [facility] Albumin 3.7 3.5 - 5.0 g/dL [facility] Alk phos 134(H) 40 - 130 Units/L [facility] ALT 13 7 - 55 Units/L [facility] AST 17 10 - 50 Units/L [facility] Blood 07/10/2025 10:5 0 AM CDT 07/10/2025 10:57 AM CDT us Stan Meza MD LAB BLOOD ORDERABLES Yolette banda Result [facility] Department of Laboratories [place] [id number] * (ABNORMAL) Differential, auto (07/02/2025 11:51 AM CDT) Neutrophil abs 1.25(L) 1.50 - 6.50 K/cumm Comment:Testing performed by : [facility], [address] [place] [address] Lymphocyte abs 1.23 0.80 - 3.30 K/cumm [facility] Comment:Testing performed by : [facility], [address] [place] [address] Monocyte abs 0.44 0.20 - 0.80 K/cumm [facility] Comment:Testing performed by : [facility], [address] [place] [address] Eosinophil abs 0.47 0.00 - 0.50 K/cumm [facility] Comment:Testing performed by : [facility], [address] [place] [address] Basophil abs 0.05 0.00 - 0.10 K/cumm [facility] Comment:Testing performed by : [facility], [address] [place] [phone] Neutrophil pct 36.3 % [facility] Comment: Interpretive Data Percent cell count reference ranges are not reported, since discordance with absolute values may lead to misinterpretation of CBC data. Current Interpretive Data was last revised on 2018. Testing performed by: [facility], [address] [place], [place] [id number] Lymphocyte pct 35.8 % [facility] Comment: Interpretive Data Percent cell count reference ranges are not reported, since discordance with absolute values may lead to misinterpretation of CBC data. Current Interpretive Data was last revised on 2018. Testing performed by: [facility], [address] [place] [phone] Monocyte pct 12.9 % [facility] Comment: Interpretive Data Percent cell count reference ranges are not reported, since discordance with absolute values may lead to misinterpretation of CBC data. Current Interpretive Data was last revised on 2018. Testing performed by: [facility], [address] [place], [place] [id number] Eosinophil pct 13.7 % [facility] Comment: Interpretive Data Percent cell count reference ranges are not reported, since discordance with absolute values may lead to misinterpretation of CBC data. Current Interpretive Data was last revised on 2018. Testing performed by: [facility], [address] [place] [phone] Basophil pct 1.4 % [facility] Comment: Interpretive Data Percent cell count reference ranges are not reported, since discordance with absolute values may lead to misinterpretation of CBC data. Current Interpretive Data was last revised on 2018. Testing performed by: [facility], [address] [place] [phone] Blood 07/02/2025 11:5 1 AM CDT 07/02/2025 11:54 AM CDT Karin Zaman FLORAL CLERK LAB BLOOD ORDERABLES Yolette banda Result [facility] Department [place] [address] * (ABNORMAL) CBC with auto differential (07/02/2025 11:51 AM CDT) WBC 3.43(L) 3.80 - 9.90 K/cumm Comment:Testing performed by : [facility], [address] [place] [phone] Hgb 11.6(L) 13.0 - 17.5 g/dL [facility] Comment:Testing performed by : [facility], [address] [place] [address] Hct 35.5(L) 38.9 - 50.3 % [facility] Comment:Testing performed by : [facility], [address] [place], [place] [id number] Plt 169 150 - 400 K/cumm [facility] Comment:Testing performed by : [facility], [address] [place] [address] MPV 6.9 6.8 - 10.4 fL [facility] Comment:Testing performed by : [facility], [address] [place], [place] [id number] RBC 4.46 4.30 - 5.80 M/cumm [facility] Comment:Testing performed by : [facility], [address] [place], [place] [id number] MCV 79.5(L) 81.3 - 96.4 fL [facility] Comment:Testing performed by : [facility], [address] [place] [address] MCH 25.9(L) 27.1 - 33.3 pg [facility] Comment:Testing performed by : [facility], [address] [place] [address] MCHC 32.6 32.3 - 35.7 g/dL [facility] Comment:Testing performed by : [facility], [address] [place] [address] RDW CV 17.0(H) 11.1 - 14.9 % [facility] Comment:Testing performed by : [facility], [address] [place] [address] NRBC abs 0.00 0.00 - 0.01 K/cumm [facility] Comment:Testing performed by : [facility], [address] [place] [address] Blood 07/02/2025 11:5 1 AM CDT 07/02/2025 11:54 AM CDT Karin Zaman FLORAL CLERK LAB BLOOD ORDERABLES Yolette l Result Performing Organization Address City/[facility] Co de Phone Number [facility] Department [place] [address] * eGFR (07/02/2025 10:42 AM CDT) eGFR >90 >=60 mL/min/1. 73 [...] interpretive data was last reviewed 2021. Blood 07/02/2025 10:4 2 AM CDT 07/02/2025 10:52 AM CDT Karin Zaman FLORAL CLERK LAB BLOOD ORDERABLES Yolette l Result Performing Organization Address City/[facility]/ZIP Co de Phone Number [facility] Department [place] [address] * (ABNORMAL) Differential, auto (07/02/2025 10:42 AM CDT) Neutrophil abs 1.21(L) 1.50 - 6.50 K/cumm Comment:Testing performed by : [facility], [address] [place] [phone] Lymphocyte abs 1.07 0.80 - 3.30 K/cumm [facility] Comment:Testing performed by : [facility], [address] [place], [place] [id number] Monocyte abs 0.45 0.20 - 0.80 K/cumm [facility] Comment:Testing performed by : [facility], [address] [place] [address] Eosinophil abs 0.43 0.00 - 0.50 K/cumm [facility] Comment:Testing performed by : [facility], [address] [place] [address] Basophil abs 0.06 0.00 - 0.10 K/cumm [facility] Comment:Testing performed by : [facility], [address] [place], [place] [phone] Neutrophil pct 37.5 % [facility] Comment: Interpretive Data Percent cell count reference ranges are not reported, since discordance with absolute values may lead to misinterpretation of CBC data. Current Interpretive Data was last revised on 2018. Testing performed by: [facility], [address] [place] [phone] Lymphocyte pct 33.3 % [facility] Comment: Interpretive Data Percent cell count reference ranges are not reported, since discordance with absolute values may lead to misinterpretation of CBC data. Current Interpretive Data was last revised on 2018. Testing performed by: [facility], [address] [place] [phone] Monocyte pct 14.0 % [facility] Comment: Interpretive Data Percent cell count reference ranges are not reported, since discordance with absolute values may lead to misinterpretation of CBC data. Current Interpretive Data was last revised on 2018. Testing performed by: [facility], [address] [place] [phone] Eosinophil pct 13.5 % [facility] Comment: Interpretive Data Percent cell count reference ranges are not reported, since discordance with absolute values may lead to misinterpretation of CBC data. Current Interpretive Data was last revised on 2018. Testing performed by: [facility], [address] [place] [phone] Basophil pct 1.8 % [facility] Comment: Interpretive Data Percent cell count reference ranges are not reported, since discordance with absolute values may lead to misinterpretation of CBC data. Current Interpretive Data was last revised on 2018. Testing performed by: [facility], [address] [place] [phone] Blood 07/02/2025 10:4 2 AM CDT 07/02/2025 10:51 AM CDT us Karin Zaman FLORAL CLERK LAB BLOOD ORDERABLES Yolette banda Result [facility] Department [place] [address] * (ABNORMAL) CBC with auto differential (07/02/2025 10:42 AM CDT) WBC 3.22(L) 3.80 - 9.90 K/cumm Comment:Testing performed by : [facility], [address] [place] [address] Hgb 11.3(L) 13.0 - 17.5 g/dL [facility] Comment:Testing performed by : [facility], [address] [place] [address] Hct 34.0(L) 38.9 - 50.3 % [facility] Comment:Testing performed by : [facility], [address] [place] [address] Plt 170 150 - 400 K/cumm [facility] Comment:Testing performed by : [facility], [address] [place] [address] MPV 6.8 6.8 - 10.4 fL [facility] Comment:Testing performed by : [facility], [address] [place] [address] RBC 4.29(L) 4.30 - 5.80 M/cumm [facility] Comment:Testing performed by : [facility], [address] [place], [place] [phone] MCV 79.3(L) 81.3 - 96.4 fL [facility] Comment:Testing performed by : [facility], [address] [place], [place] [phone] MCH 26.2(L) 27.1 - 33.3 pg [facility] Comment:Testing performed by : [facility], [address] [place], [place] [phone] MCHC 33.1 32.3 - 35.7 g/dL [facility] Comment:Testing performed by : [facility], [address] [place], [place] [phone] RDW CV 16.9(H) 11.1 - 14.9 % [facility] Comment:Testing performed by : [facility], [address] [place], [place] [phone] NRBC abs 0.00 0.00 - 0.01 K/cumm [facility] Comment:Testing performed by : [facility], [address] [place], [place] [phone] Blood 07/02/2025 10:4 2 AM CDT 07/02/2025 10:51 AM CDT Karin Zaman FLORAL CLERK LAB BLOOD ORDERABLES Yolette l Result Performing Organization Address [facility]/ZIP Co de Phone Number [facility] Department [place] [address] * Uric acid (07/02/2025 10:42 AM CDT) Uric acid 4.7 3.0 - 8.0 mg/dL Blood 07/02/2025 10:4 2 AM CDT 07/02/2025 10:52 AM CDT Karin Zaman FLORAL CLERK LAB BLOOD ORDERABLES Yolette l Result Performing Organization Address City/[facility]/ZIP Co de Phone Number [facility] Department [place] [address] * (ABNORMAL) Comprehensive metabolic panel (07/02/2025 10:42 AM CDT) Sodium 136 135 - 145 mmol/L Potassium, pl 4.5 3.3 - 4.9 mmol/L [facility] Chloride 103 97 - 110 mmol/L [facility] CO2 25 22 - 32 mmol/L [facility] Anion gap 8 2 - 15 mmol/L [facility] BUN 7 6 - 25 mg/dL [facility] Creatinine 0.74(L) 0.80 - 1.30 mg/dL [facility] Glucose 88 70 - 199 mg/dL [facility] Comment: Interpretive Data Fasting glucose >/= 126 [...] 2022. Calcium 9.4 8.5 - 10.3 mg/dL [facility] Bilirubin, total 0.4 0.1 - 1.2 mg/dL [facility] Protein, pl 7.0 6.5 - 8.5 g/dL [facility] Albumin 3.8 3.5 - 5.0 g/dL [facility] Alk phos 148(H) 40 - 130 Units/L [facility] ALT 12 7 - 55 Units/L [facility] AST 16 10 - 50 Units/L [facility] Blood 07/02/2025 10:4 2 AM CDT 07/02/2025 10:52 AM CDT us Karin Zaman FLORAL CLERK LAB BLOOD ORDERABLES Yolette banda Result [facility] Department [place] [address] * Hepatitis C antibody Blood (05/29/2025 12:49 PM CDT) Hep C Ab Nonreactive Nonreactive Comment:Antibodies to HCV no t detected. Does NOT exclude the possibility of recent exposure to HCV. Current interpretive data was last revised on 22 Blood 05/29/2025 12:4 9 PM CDT 05/29/2025 1:20 PM CDT us Stan Meza MD LAB MICROBIOLOGY - GENERA L ORDERABLES Final Result [facility] Department [place] [address] from Last 3 Months or Most Recently Relevant to Health Maintenance Insurance [facility] Advance Directives For more information, please contact: [phone] * Full Code (Latest Code Status on File) Date Activated Date Inactivated Comments 09/15/2025 9:04 AM 09/16/2025 5:26 AM Care Teams Research Dairy Farm Supervisor Relationship Specialty Start Date End Date Matthew Mccabe MD PCP - General Family Medicine 05/13/24 Stan Meza MD Medical Oncologist/Fruit Coordinator Medical Oncology 06/28/24 Natalie Baum NP [address] [place] [address] [place] [address] Nurse Practitioner Family Practice 03/26/25
--- OUTSIDE RECORDS SUMMARY | 2025-09-22 11:32 | XMS_ITS ---
Author Organization [facility] Address [address] [place] [address] Care Team Providers Care Solution Director Name Role Phone Matthew Mccabe MD Primary Care Prov ider Stan Meza MD Unavailable [phone] Natalie Baum NP Unavailable [phone] Active Problems Problem Noted Date Diagnosed Date Nicotine dependence with current use 09/18/2025 Hypokalemia 11/14/2024 Metastasis to bone 11/06/2024 Cancer related pain 08/15/2024 Prophylaxis for chemotherapy-induced neutropenia 08/01/2024 Primary cancer of left lower lobe of lung 2023 Cancer Staging:Clinical:Stage IVB(pM1c) - Unsigned Localized enlarged lymph nodes 05/28/2024 Hilar mass 05/28/2024 Current Treatment and Therapy Plans DOCEtaxel 21 Day Cycles - Non-Small Cell Lung* Plan Start Date:07/09/2025 Plan Provider:Satn Meza MD Linked Problems Metastasis to bonePrimary ca ncer of left lower lobe of lung (HCC)Prophylaxis for chemotherapy-induced neutropenia Treatment Medications Current Day (Day 1 , Cycle 5 - Planned for 10/09/2025) Next Day (Day 1, Cycle 6 - Planned for 10/30/2025) dexAMETHasone (DECADRON)DOCEtaxel (TAXOTERE)DOCEtaxel (TAXOTERE) IVPB in 250 mL (vial 20mg/mL) DOCEtaxeL (TAXOTERE) 118 mg in sodium chloride 0.9% (PVC-FREE) 250 mL IVPB DOCEtaxeL (TAXOTERE) 118 mg in sodium chloride 0.9% (PVC-FREE) 250 mL IVPB Hydration Therapy Plan* Plan Start Date:12/05/2024 Plan Provider:Stan Meza MD Linked Problems Primary cancer of left lower lobe of lung (HCC) Treatment Medications No medications scheduled. IV Maintenance Therapy Plan* Plan Start Date:07/10/2025 Plan Provider:Stan Meza MD Linked Problems Primary cancer of left lower lobe of lung (HCC) Treatment Medications No medications scheduled. Pegfilgrastim (NEULASTA) Injection* Plan Start Date:08/01/2025 Plan Provider:Stan Meza MD Linked Problems Metastasis to bonePrimary ca ncer of left lower lobe of lung (HCC)Prophylaxis for chemotherapy-induced neutropenia Treatment Medications No medications scheduled. Zoledronic Acid Every 6 Weeks* Plan Start Date:11/28/2024 Plan Provider:Stan Meza MD Linked Problems Metastasis to bonePrimary ca ncer of left lower lobe of lung (HCC) Treatment Medications Current Day (Day 1 , Cycle 4 - Planned for 08/21/2025) Next Day (Day 1, Cycle 5 - Planned for 10/02/2025) No medications scheduled. No medications schedul ed. No medications scheduled. Past Treatment and Therapy Plans Line Care Plan Name Start Date Discontinue Date Treatment Medications Discontinue Reason Plan Provider IV Maintenance Therapy Plan & IV Maintenance Therapy Plan 10/03/2024 07/10/2025 No medications scheduled. Protocol Amendment/Stan Gramajo MD Oncology Chemotherapy Treatment Plan Name Start Date Discontinue Date Treatment Medications Discontinue Reason Plan Provider Cycles [id number] - [facility] - Phase 1 - VAISHALI-PEG 20 / Docetaxel / Gemcitabine 07/03/2025 DOCEtaxel (TAXOTERE)gemcita bine (GEMZAR)INV-[facility] VAISHALI-PEG 20 ( [id number]) Patient Preference Karin Zaman, LE 1 of 6 cycles started Pembrolizumab / Albumin-bound PACLItaxel (Abraxane) / CARBOplatin 21 Day Cycles then Pembrolizumab 21 Day Cycles - Non-Small Cell Lung 024 06/04/2025 ALBUMIN-BOUND PACLItaxel (ABRAXANE)albumin -bound PACLItaxel (ABRAXANE) 5 mg/mLCARBOplatin (PARAPLATIN)CARBO platin (PARAPLATIN) IVPB in 250 mLdexAMETHasone (DECADRON)pembrol izumab (KEYTRUDA) Progression Stan Pastrana rn, MD 5 of 35 cycles started Pembrolizumab / PACLItaxel / CARBOplatin 21 Day Cycles then Pembrolizumab 21 Day Cycles - Non-Small Cell Lung 024 08/20/2024 CARBOplatin (PARAPLATIN)PACLi taxel (TAXOL)pembrolizu mab (KEYTRUDA) Provider Discretion Stan Pastrana rn, MD Treatment not started Pembrolizumab / Albumin-bound PACLItaxel (Abraxane) / CARBOplatin 21 Day Cycles then Pembrolizumab 21 Day Cycles - Non-Small Cell Lung 024 08/20/2024 albumin-bound PACLItaxel (ABRAXANE)CARBOpl atin (PARAPLATIN)pembr olizumab (KEYTRUDA) Financial Stan Pastrana rn, MD Treatment not started Pembrolizumab / Pemetrexed / CARBOplatin 21 day cycles - Non-Small Cell Lung 08/20/2024 CARBOplatin (PARAPLATIN)pembr olizumab (KEYTRUDA)PEMEtre xed (ALIMTA) Provider Discretion Stan Pastrana rn, MD 1 of 24 cycles started Specialty Infusion Treatment Plan Name Start Date Discontinue Date Treatment Medications Discontinue Reason Plan Provider Denosumab (XGEVA) Injection 11/07/2024 11/11/2024 No medications scheduled. Stan Mckeon MD Radiation Treatments * Course [id number] 08/12/2024 - 08/19/2024 Treatment Period Energy Fraction Dose Fractions Total Dose Plans Planned SACRUM 08/12/2024 - 08/19/2024 400 5 / 2,000 STERNUM 08/12/2024 - 08/19/2024 400 5 / 2,000 Reference Points Delivered SACRUM_DPV 08/12/2024 - 08/19/2024 2,000 STERNUM_DPV 08/12/2024 - 08/19/2024 2,000 Lifetime Dose Tracking * Chemical Lifetime Dose Automatic Entry Manual Entr y Fluoro Time 0.2 minutes 0.2 minutes 0 minutes Air kerma at the reference point (Ka,r) 2 mGy 2 mGy 0 mGy DLP 4,878.9 mGycm 4,878.9 mGycm 0 mGycm
--- OUTSIDE RECORDS SUMMARY | 2025-09-22 11:32 | XMS_ITS | Encounter Summary ---
Author Organization [facility] Address [address] [place] [address] Phone Care Team Providers Care Obstetrician And Gynaecologist Name Role Phone Matthew Mccabe MD Primary Care Prov ider Stan Meza MD Unavailable [phone] Natalie Baum NP Unavailable [phone] Encounter Details Date Type Department Care Team (Late st Contact Info) Description 09/22/2025 Telephone [facility] Medicine Oncology [address] [facility] Floor [address] [place] [address] Sasha Hernandes, RN Social History Tobacco Use Types Packs/Day Years Used Date Smoking Tobacco: Every Day Cigarettes Passive Smoke Exposure: Current Smokeless Tobacco: Never Alcohol Use Standard Drinks/Week [...] on file 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 He states that he cannot swallow and is vomiting. Pt unable to take medications. Pt denies fever, feels generally bad. Offered to schedule [facility], pt declines. Recommended pt go locally for evaluation. Pt states that he will go to [facility]. ET ENGINEER documented in this encounter Plan of Treatment Not on file documented as of this encounter Visit Diagnoses Not on filedocumented in this encounter Care Teams Obstetrician And Gynaecologist Relationship Specialty Start Date End Date Matthew Mccabe MD PCP - General Family Medicine 05/13/24 Stan Meza MD Medical Oncologist/Vault Manager Medical Oncology 06/28/24 Natalie Baum NP [address] [facility] [place] [address] Nurse Practitioner Family Practice 03/26/25 documented as of this encounter
--- OUTSIDE RECORDS SUMMARY | 2025-09-22 11:32 | XMS_ITS | Encounter Summary ---
Author Organization [facility] Address [facility] [place] [address] Care Team Providers Care Tax Assessor Name Role Phone Amilcar Osorio MD Primary Care Provider [phone] Monica Tellez NP Primary Care Provider [phone] Natalie Baum GANTRY RIGGER Primary Care Provider + [phone] Encounter Details Date Type Department Care Team (Late st Contact Info) Description 07/03/2018 Abstract [facility] Medical Group Multispecialty Care - [facility] [address] [facility] [place] [address] Gina Fleming APNP [address] [place] [address] Social History Tobacco Use Types Packs/Day Years [...] on filedocumented in this encounter Care Teams Tax Assessor Relationship Specialty Start Date End Date Amilcar Osorio MD [address] [facility], [address] [address] PCP - General 05/01/17 09/04/19 Monica Tellez NP [address] [place] [address] PCP - General NURSE PRACTITIONER 09/05/19 01/18/25 Natalie Baum NP [address] [place] [address] PCP - General FAMILY PRACTICE 01/19/25 documented as of this encounter
--- OUTSIDE RECORDS SUMMARY | 2025-09-22 11:32 | XMS_ITS | Encounter Summary ---
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 Gender Identity Not on file Sexual Orientation Not on file documented as of this encounter Functional Status documented as of this encounter Plan of Treatment Not on file documented as of this encounter Visit Diagnoses Not on filedocumented in this encounter Additional Health Concerns Infection Onset Date Last Indicated Resolved Time COVID: Suspected 08/29/2024 08/29/2024 08/29/2024 1:59 PM CDT documented as of this encounter Care Teams Turnstile Attendant Relationship Specialty Start Date End Date Matthew Mccabe MD PCP - General Family Medicine 05/13/24 Stan Meza MD Medical Oncologist/Shift Production Supervisor Medical Oncology 06/28/24 Natalie Baum NP [address] [place] [address] Nurse Practitioner Family Practice 03/26/25 documented as of this encounter
--- OUTSIDE RECORDS SUMMARY | 2025-09-22 11:33 | XMS_ITS | Encounter Summary ---
Author Organization [facility] Address [address] [place] [address] Care Team Providers Care Underground Supervisor Name Role Phone Monica Tellez BOX TRUCK OWNER OPERATOR-SOFTWARE EDUCATOR Primary Care Provi cristobal Ian Pollock MD Primary Care Provider [phone] Ian Pollock MD Primary Care Provider [phone] Ian Pollock MD Primary Care Provider [phone] Ian Pollock MD Primary Care Provider [phone] Ian Pollock MD Primary Care Provider [phone] Katina Casiano DO Unavailable [phone] Xavi ACOSTA MD, Fred R Primary Care Provider + Katina Casiano DO Unavailable [phone] Tracey Ang Unavailable Unavailable Belkis Angel BOX TRUCK OWNER OPERATOR-SOFTWARE EDUCATOR Primary Care Provider + Natalie Baum Primary Care Provider [phone] Reason for Visit * Reason Onset Date Comments Results 10/25/2019 Encounter Details Date Type Department Care Team (Late st Contact Info) Description 10/25/2019 Telephone [facility] General Internal Medicine [address] [address] Monica Tellez, BOX TRUCK OWNER OPERATOR-SOFTWARE EDUCATOR [address] [facility] [place] [address] Results Social History Tobacco Use Types Packs/Day [...] on file 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 OPERATER Gender Identity Not on file Sexual Orientation [...] Janice Conn RN - 10/31/2019 12:18 PM OPERATER Pt calling again stating that Lashon Tellez had sent him for a Cardiac Ultrasound. This TNs. Found HCTTE 2D w/Con Doppler/color CMPT Done 10/25/2019, in chart under Cardiac tab, Faxed to [facility]. Pt request callback: [phone]. Pt seems very nervous about his results. ATER * Telephone Encounter - Monica Tellez APRN-CNP - 10/25/2019 1:56 PM OPERATER Please find out what ultrasound he had. Have not ultrasound results. Who would have ordered this and where?? Monica Gavin [facility] Tellez ATER * Telephone Encounter - Maria Isabel William RN - 10/25/2019 1:47 PM CST Patient nervous about ultrasound result Please call [phone] ATER documented in this encounter Plan of Treatment [...] on filedocumented in this encounter Care Teams Underground Supervisor Relationship Specialty Start Date End Date Monica Tellez APRN-CNP PCP - General 07/03/19 11/13/19 Ian Pollock MD PCP - General 11/14/19 12/12/19 Ian Pollock MD PCP - General 12/13/19 05/25/20 Ian Pollock MD PCP - General 05/26/20 06/15/20 Ian Pollock MD [address] [facility] [address] PCP - General 07/31/20 08/20/20 Ian Pollock MD [address] [facility] [address] PCP - General 08/21/20 05/29/23 Jameel Hurley III, MD [address] [facility] [place] [id number] PCP - General Internal Medicine 06/05/23 08/28/23 Belkis Angel, BOX TRUCK OWNER OPERATOR-SOFTWARE EDUCATOR [address] [place] [id number] PCP - General Nurse Practitioner 08/29/23 05/05/24 Natalie Baum [address] [place] [address] PCP - General 05/06/24 Katina Casiano DO [address] [facility] INTERNAL MEDICINE [place], [place] Resident - PCP Internal Medicine 08/10/22 05/29/23 Katina Casiano DO [address] [facility] [place], [place] Hospitalist 06/05/23 Tracey Ang PA [address] [facility] [place] [address] Physician Assembler Unit 08/15/23 documented as of this encounter
--- OUTSIDE RECORDS SUMMARY | 2025-09-22 11:33 | XMS_ITS | Encounter Summary ---
Author Organization [facility] Address [address] [facility] [place] [address] Care Team Providers Care Director Of Perioperative Services Name Role Phone Ian Pollock MD Primary Care Provider [phone] Ian Pollock MD Primary Care Provider [phone] Ian Pollock MD Primary Care Provider [phone] Ian Pollock MD Primary Care Provider [phone] Ian Pollock MD Primary Care Provider [phone] Katina Casiano DO Unavailable [phone] Xavi ACOSTA MD, Jameel R Primary Care Provider + Katina Casiano DO Unavailable [phone] Tracey Ang Unavailable Unavailable Belkis Angel RETAIL MORTGAGE BANKER-MOUNTER CLARINETS Primary Care Provider + Natalie Baum Primary Care Provider [phone] Reason for Visit * Reason Onset Date Comments General 12/02/2019 Encounter Details Date Type Department Care Team (Late st Contact Info) Description 12/02/2019 Telephone [facility] General Internal Medicine [address] [phone] Ian Pollock MD [address] [facility] [address] [facility] OF [place] [address] General Social History Tobacco Use Types Packs/Day [...] on file 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 CB# [phone] Routed to provider for further review NG STAPLER documented in this encounter Plan of Treatment [...] in this encounter Care Teams Director Of Perioperative Services Relationship Specialty Start Date End Date Ian Pollock MD PCP - General 11/14/19 12/12/19 Ian Pollock MD PCP - General 12/13/19 05/25/20 Ian Pollock MD PCP - General 05/26/20 06/15/20 Ian Pollock MD [address] [facility] [place] [address] PCP - General 07/31/20 08/20/20 Ian Pollock MD [address] [facility] [place] [address] PCP - General 08/21/20 05/29/23 Jameel Hurley III, MD [address] [facility] [place] [address] PCP - General Internal Medicine 06/05/23 08/28/23 Belkis Angel, RETAIL MORTGAGE BANKER-MOUNTER CLARINETS [address] [facility] [address] [place] [address] PCP - General Nurse Practitioner 08/29/23 05/05/24 Natalie Baum [address] [place] [address] PCP - General 05/06/24 Katina Casiano DO [address] [facility] INTER[facility] [place], [place] Resident - PCP Internal Medicine 08/10/22 05/29/23 Katina Casiano DO [address] [facility] [place], [place] Hospitalist 06/05/23 Tracey Ang PA [address] [facility] [place] [address] Physician Record Press Operator 08/15/23 documented as of this encounter
--- OUTSIDE RECORDS SUMMARY | 2025-09-22 11:33 | XMS_ITS | Encounter Summary ---
Author Organization [facility] Address [address] [facility] [place] [address] Care Team Providers Care Director Of Plant Operations Name Role Phone Monica Tellez INTEGRATED LOGISTICS PROGRAMS DIRECTOR-REUSE TECHNICIAN Primary Care Provi cristobal Ian Pollock MD Primary Care Provider [phone] Ian Pollock MD Primary Care Provider [phone] Ian Pollock MD Primary Care Provider [phone] Ian Pollock MD Primary Care Provider [phone] Ian Pollock MD Primary Care Provider [phone] Katina Casiano DO Unavailable [phone] Xavi ACOSTA MD, Fred R Primary Care Provider + Katina Casiano DO Unavailable [phone] Tracey Ang Unavailable Unavailable Belkis Angel INTEGRATED LOGISTICS PROGRAMS DIRECTOR-REUSE TECHNICIAN Primary Care Provider + Natalie aBum Primary Care Provider [phone] Reason for Visit * Reason Onset Date Comments Appointment 09/11/2019 Encounter Details Date Type Department Care Team (Late st Contact Info) Description 09/11/2019 Telephone [facility] Internal Medicine [address] [address] Monica Tellez, INTEGRATED LOGISTICS PROGRAMS DIRECTOR-REUSE TECHNICIAN [address] [facility] [address] [facility] [place] [address] Appointment Social History Tobacco Use Types Packs/Day [...] on file 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 Gender Identity Not on file Sexual [...] disconnected Called again warm transfer to scheduling TING TEACHER documented in this encounter Plan of [...] in this encounter Care Teams Director Of Plant Operations Relationship Specialty Start Date End Date Monica Tellez, INTEGRATED LOGISTICS PROGRAMS DIRECTOR-REUSE TECHNICIAN PCP - General 07/03/19 11/13/19 Ian Pollock MD PCP - General 11/14/19 12/12/19 Ian Pollock MD PCP - General 12/13/19 05/25/20 Ian Pollock MD PCP - General 05/26/20 06/15/20 Ian Pollock MD [address] [facility] [place] [address] PCP - General 07/31/20 08/20/20 Ian Pollock MD [address] [facility] [place] [address] PCP - General 08/21/20 05/29/23 Jameel Hurley III, MD [address] [facility] [place] [address] PCP - General Internal Medicine 06/05/23 08/28/23 Belkis Angel, INTEGRATED LOGISTICS PROGRAMS DIRECTOR-REUSE TECHNICIAN [address] [facility] [address] [place] [address] PCP - General Nurse Practitioner 08/29/23 05/05/24 Natalie Baum [address] [place] [address] PCP - General 05/06/24 Katina Casiano DO [address] [facility] INTERNAL MEDIC[place], [place] Resident - PCP Internal Medicine 08/10/22 05/29/23 Katina Casiano DO [address] [facility] INTER[facility] [place], [place] Hospitalist 06/05/23 Tracey Ang PA [address] [facility] [place] [address] Photographer 08/15/23 documented as of this encounter
--- OUTSIDE RECORDS SUMMARY | 2025-09-22 11:33 | XMS_ITS | Encounter Summary ---
Author Organization [facility] Address [address] [place] [address] Care Team Providers Care Teacher Name Role Phone Monica Tellez V BELT MOLD ASSEMBLER AND CURER-REAL ESTATE LISTING CONSULTANT Primary Care Provi cristobal Ian Pollock MD Primary Care Provider [phone] Ian Pollock MD Primary Care Provider [phone] Ian Pollock MD Primary Care Provider [phone] Ian Pollock MD Primary Care Provider [phone] Ian Pollock MD Primary Care Provider [phone] Katina Casiano DO Unavailable [phone] Xavi ACOSTA MD, Fred R Primary Care Provider + Katina Casiano DO Unavailable [phone] Tracey Ang Unavailable Unavailable Belkis Angel V BELT MOLD ASSEMBLER AND CURER-REAL ESTATE LISTING CONSULTANT Primary Care Provider + Natalie Baum Primary Care Provider [phone] Reason for Visit * Reason Onset Date Comments General 11/12/2019 Encounter Details Date Type Department Care Team (Late st Contact Info) Description 11/12/2019 Telephone [facility] General Internal Medicine [address] [place] [address] Monica Tellez, V BELT MOLD ASSEMBLER AND CURER-REAL ESTATE LISTING CONSULTANT [address] [facility] [place] [address] General Social History Tobacco Use Types Packs/Day [...] on file 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 He was upset that I told him to ask his pulmonary doctor to order low dose CT since pulmonary was the one who usually ordered this. MAR[facility]OL Díaz FURNACE INSTALLER * Telephone Encounter - Nadeem Hancock - 11/12/2019 1:07 PM CST Pt called to request to be released from the provider's care. Caller stated that the provider has done a couple of things to rub him the wrong way, and he would like another provider. Pt provided call back number [phone] Message routed to provider for review and assistance FURNACE INSTALLER documented in this encounter Plan of [...] filedocumented in this encounter Care Teams Teacher Relationship Specialty Start Date End Date Monica Tellez APRN-REAL ESTATE LISTING CONSULTANT PCP - General 07/03/19 11/13/19 Ian Pollock MD PCP - General 11/14/19 12/12/19 Ian Pollock MD PCP - General 12/13/19 05/25/20 Ian Pollock MD PCP - General 05/26/20 06/15/20 Ian Pollock MD [address] [place] [address] PCP - General 07/31/20 08/20/20 Ian Pollock MD [address] [place] [address] PCP - General 08/21/20 05/29/23 Jameel Hurley III, MD [address] [facility] [place] [address] PCP - General Internal Medicine 06/05/23 08/28/23 Belkis Angel, V BELT MOLD ASSEMBLER AND CURER-REAL ESTATE LISTING CONSULTANT [address] [phone] PCP - General Nurse Practitioner 08/29/23 05/05/24 Natalie Baum [address] [place] [address] PCP - General 05/06/24 Katina Casiano DO [address] [facility] INTERNAL MEDICINE [place], [place] Resident - PCP Internal Medicine 08/10/22 05/29/23 Katina Casiano DO [address] [facility] INTER[facility] MEDICINE [place], [place] Hospitalist 06/05/23 Tracey Ang PA [address] [facility] [place] [address] Physician Metallurgy Teacher 08/15/23 documented as of this encounter
[2025-09-22 11:42] LABS: Hematocrit 27.0 % (42.0-52.0); Hemoglobin 8.8 g/dL (14.0-18.0); Mean Corpuscular HGB Conc 32.6 g/dl (32-36); Mean Corpuscular Hemoglobin 28.3 pg (26-34); Mean Corpuscular Volume 86.8 fl (80-100); Platelet Count Result 101 k/mm3 (150-375); Red Blood Count 3.11 M/mm3 (4.6-6.20); White Blood Count 14.7 K/mm3 (4.5-10.0)
[2025-09-22 12:05] LABS: Strep Group A RT-PCR NOT DETECTED (Negative)
[2025-09-22 12:06] LABS: Band Neutrophils Percent 8 % (0-6); Basophils Absolute Manual 0.14 K/mm3 (0.0-0.1); Basophils Percent Manual 1 % (0-1); Lymphocytes Absolute Manual 0.44 K/mm3 (1.1-4.5); Lymphocytes Percent Manual 3.0 % (18-44); Metamyelocytes Percent 2 %; Monocytes Absolute Manual 0.29 K/mm3 (0.1-0.90); Monocytes Percent Manual 2 % (3-9); Neutrophils Absolute Manual 13.52 K/mm3 (1.3-6.7); Neutrophils Percent Manual 84 % (46-73); Total Cells Counted 100
[2025-09-22 12:07] LABS: Alanine Aminotransferase 13 U/L (6-50); Albumin Level 3.3 g/dL (3.5-5.1); Alkaline Phosphatase 123 U/L (38-126); Anion Gap 4 mmol/L (4-12); Anisocytosis 1+; Aspartate Amino Transferase 20 U/L (17-59); Bilirubin,Total 0.7 mg/dL (0.2-1.3); Blood Urea Nitrogen 9 mg/dL (9-20); Calcium 8.5 mg/dL (8.4-10.2); Carbon Dioxide 27 mmol/L (22-30); Chloride 98 mmol/L (98-107); Estimated CRCL calculation 131 ml/min; Estimated Glomerular Filt Rate > 60; Glucose 95 mg/dL (65-110); Potassium 4.0 mmol/L (3.4-5.0); Schistocytes None Seen; Sodium 129 mmol/L (137-145); Target Cells Occasional; Total Protein 6.2 g/dL (6.3-8.2)
[2025-09-22 12:08] LABS: Hypochromasia 1+
== END 2025-09-22 12:52 | disposition home or self-care (01) ==
PROVIDERS: Emergency Provider Emergency Medicine; PCP Family Medicine Adolescent Medicine
DX: E86.0 Dehydration (principal); J02.9 Acute pharyngitis, unspecified; F17.210 Nicotine dependence, cigarettes, uncomplicated; I10 Essential (primary) hypertension; I34.0 Nonrheumatic mitral (valve) insufficiency; M19.90 Unspecified osteoarthritis, unspecified site; C34.90 Malignant neoplasm of unspecified part of unspecified bronchus or lung; J44.89 Other specified chronic obstructive pulmonary disease
CPT/HCPCS: 36415; 80053; 85025; 87651; 96361; 96374; 99284; J1100; J7120

== ENCOUNTER 2025-10-24 12:46 | Observation (INO) | payer OTHER, SELFPAY ==
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
--- NOTE | ~2025-10-24 | XR_ITS ---
EXAMINATION: XR chest 2V DATE: 10/24/2025 13:55 INDICATION: Shortness of breath TECHNIQUE: PA and lateral views of the chest were obtained. COMPARISON: Chest radiograph dated 02/28/2025 FINDINGS: Elevation of the left hemidiaphragm. Slight interval decrease in chronic asymmetric coarse reticular opacities throughout the right lung. Also unchanged linear discoid atelectasis/scarring extending obliquely across the left mid to upper lung zones and mild streaky opacities at the left lung base. No pleural effusion or pneumothorax. The cardiomediastinal silhouette is normal. Right internal jugular central venous port catheter with distal tip at the caudal superior vena cava. IMPRESSION: 1. Slight decrease in chronic coarse reticular opacities throughout the right lung which could be due to pneumonia or sequela prior pneumonia, asymmetric pulmonary edema or chronic interstitial lung disease. 2. Unchanged linear discoid atelectasis/scarring in the left mid to upper lung with chronic elevation the left hemidiaphragm. Reviewed, dictated and finalized at location A. L INSPECTION SUPERVISOR IMPRESSION: 1. Slight decrease in chronic coarse reticular opacities throughout the right l [place] which could be due to pneumonia or sequela prior pneumonia, asymmetric pulm onary edema or chronic interstitial lung disease. 2. Unchanged linear discoid atelectasis/scarring in the left mid to upper lung with chronic elevation the left hemidiaphragm.
--- NOTE | ~2025-10-24 | CT_ITS ---
EXAMINATION: CTA chest PE protocol DATE: 10/24/2025 15:00 [employer]OMOTIVE PARTS PERSON INDICATION: Shortness of breath TECHNIQUE: Computed tomographic angiography (CTA) of the chest was performed with 100 mL Omnipaque-350 intravenous contrast. The dose-length product was 276.09 mGy-cm. Maximum intensity projection 3D-reconstructions of the aorta and other arteries were constructed by the technologist on a separate workstation. COMPARISON: CT dated 10/23/2024. FINDINGS: There is extensive mediastinal, bilateral hilar lymphadenopathy as well as bilateral adrenal masses, suspicious for metastatic disease. There is chronic interstitial fibrosis. There is a 1.6 cm right lower lobe nodule, suspicious for bronchogenic genic carcinoma. There is bronchiectasis. There is patchy consolidation in the left upper lobe with mucus plugging, suspicious for pneumonia. There is encasement of the left main pulmonary artery by lymph node enlargement with mild compression. No definite filling defect identified to suggest pulmonary embolism. Heart size normal. No significant pleural or pericardial effusion. Small hiatal hernia. There is a left renal cysts. There are healed left lower rib fractures. Moderate thoracic spondylosis. There is lytic destruction of the sternum with associated pathologic fracture. IMPRESSION: 1. Right lower lobe nodule measuring 1.6 cm, concerning for bronchogenic carcinoma. Abnormal mediastinal, hilar lymphadenopathy and bilateral adrenal masses, suspicious for metastatic disease. Probable metastatic disease to the sternum with associated pathologic fracture. 2: Chronic interstitial fibrosis with patchy left upper lobe consolidation, compatible with pneumonia.0 Reviewed, dictated and finalized at location O. MOTIVE PARTS PERSON IMPRESSION: 1. Right lower lobe nodule measuring 1.6 cm, concerning for bronchogenic carcin jaqueline. Abnormal mediastinal, hilar lymphadenopathy and bilateral adrenal masses, suspicious for metastatic disease. Probable metastatic disease to the sternum w ith associated pathologic fracture. 2: Chronic interstitial fibrosis with patchy left upper lobe consolidation, com patible with pneumonia.0
[2025-10-24 12:47] VITALS: BP 128/86; PULSE 110; RESP 26; TEMP 36.9; O2SAT 98
--- NOTE | 2025-10-24 12:54 | ECG_ITS ---
Test Date: 2025-10-24 12:59:42 Measurements Intervals [place] Rate: 106 P: 30 IN: 143 QRS: 5 QRSD: 99 T: 61 QT: 361 QTc: 481 Interpretive Statements SINUS TACHYCARDIA WITH OCCASIONAL VENTRICULAR PREMATURE COMPLEXES CONSIDER ANTERIOR INFARCT, AGE INDETERMINATE CONSIDER INFERIOR INFARCT, AGE INDETERMINATE BASELINE ARTIFACT- I, III, AVR, AVL, AVF Compared to ECG 02/25/2025 06:20:43 Ventricular premature complex(es) now present Electronically Signed On 10-24-2025 19:29:03 DISC PAD GRINDING MACHINE FEEDER by Ian Lopez D.O.
[2025-10-24 12:55] VITALS: O2SAT 100
--- NOTE | 2025-10-24 13:00 | ED.SOB ---
HPI - SOB/Dyspnea General Chief Complaint: Shortness of Breath/Dyspnea Stated Complaint: SOB Time Seen by Provider: 10/24/25 12:55 Source: patient Mode of arrival: EMS Limitations: no limitations History of Present Illness HPI Narrative: This is a 65-year-old male with history of metastatic lung cancer currently undergoing chemotherapy, COPD who presents to the ED for shortness of breath. Patient states that last couple days, he has had worsening shortness of breath. He tried a nebulizer treatment at home yesterday with minimal relief. He has had a cough productive of sputum as well as chills. No known sick contacts. His last chemotherapy was on Monday and it went well as far as he knows. Denies chest pain. He follows with oncology at [place]. Related Data Home Medications ?Medication ?Instructions ?Recorded ?Confirmed ?Last Taken ?Type latanoprost 0.005 % eye drops 1 drp ophthalmic (eye) DAILY 05/05/20 03/25/25 Unknown History alfuzosin 10 mg tablet,extended 10 mg PO DAILY 12/12/23 03/25/25 Unknown History release 24 hr aspirin 81 mg tablet,delayed 81 mg PO DAILY 12/12/23 03/25/25 Unknown History release (Adult Aspirin Regimen) buspirone 7.5 mg tablet 10 mg PO BID 12/12/23 03/25/25 Unknown History carvedilol 12.5 mg tablet 12.5 mg PO Q12H 12/12/23 03/25/25 Unknown History hydroxyzine pamoate 100 mg capsule 25 mg PO Q12H 12/12/23 03/25/25 Unknown History lamotrigine 100 mg tablet 100 mg PO DAILY 12/12/23 03/25/25 Unknown History ziprasidone HCl 80 mg capsule 80 mg PO BID 12/12/23 03/25/25 Unknown History morphine 30 mg tablet,extended 30 mg PO Q12H PRN pain 09/13/24 03/25/25 Unknown History release ondansetron HCl 8 mg tablet 8 mg PO BID PRN Nausea And Vomiting 09/13/24 03/25/25 Unknown History oxycodone 5 mg tablet 10 mg PO Q4H PRN Pain (Scale Score 09/13/24 03/25/25 Unknown History 7-10) Allergies Allergy/AdvReac Type Severity Reaction Status Date / Time lisinopril Allergy Severe ANGIOEDEMA Verified 10/24/25 12:54 Penicillins Allergy Unknown Swelling Verified 10/24/25 12:54 Review of Systems Review of Systems: All systems reviewed & are unremarkable except as noted in HPI and below [facility] Past Medical History Medical History BMI 28.0-28.9,adult Hyponatremia Mitral regurgitation Systolic dysfunction Diastolic dysfunction (04/2024) PAF (paroxysmal atrial fibrillation) Cardiomyopathy Arthritis Bronchitis Asthma COPD (chronic obstructive pulmonary disease) HTN (hypertension) Glaucoma Surgical History Surgical History History of knee replacement procedure of right knee Family History Family History Father Alcoholism Heart problem Hypertension Sibling Alcoholism Cancer Hypertension Mother Cancer Hypertension Grandparent Diabetes mellitus Heart problem Hypertension Sibling Cancer Hypertension Social History Social History Smoking packs per day: 0.5 Smoking cigarettes per day: 10.0 Years smoked: 40 Smoking pack-years: 20.00 Smoking status: Current every day smoker Second hand tobacco smoke exposure: Yes Alcohol intake: never Substance use: current Substance use type: marijuana Other substance usage details: 4 x wk Lack of Transportation: YES Lack of Food: Never True Current Housing: I Have Housing Concerned About Future Housing: No Difficulty Paying Gas/Electric Bills: No Difficulty Paying for Meds: No Currently Unemployed: No Education: Associate Degree Difficulty w/ Childcare or Family Care: No Living arrangements: alone Occupation/Education: retired Additional occupation/education comments: [employer] Gender identity (if verbalized by the patient): Male Spiritual care concerns: No Exam Narrative: APPEARANCE: No acute distress, nontoxic, resting in bed EYES: EOMI HEENT: Normocephalic, atraumatic, OMM RESPIRATORY: Tachypnea, accessory muscle use, diminished breath sounds throughout worse on the right. CARDIOVASCULAR: Tachycardic with regular rhythm without murmurs rubs or gallops. ABDOMINAL: Soft, nontender, nondistended, no rebound or guarding MUSCULOSKELETAl: Moves all extremities. No clubbing, cyanosis or edema. NEURO: Awake and alert. Following commands, speech normal, no focal deficits SKIN:: Warm, dry. No rashes lesions or abrasions PSYCHIATRIC: Normal affect/mood, Course Vital Signs Vital signs: Vital Signs Temperature 98.4 F 10/24/25 12:47 Pulse Rate 110 H 10/24/25 12:47 Respiratory Rate 26 H 10/24/25 12:47 Blood Pressure 128/86 10/24/25 12:47 Pulse Oximetry 98 10/24/25 12:47 Oxygen Delivery Nasal Cannula 10/24/25 12:47 Oxygen Flow Rate 3 10/24/25 12:47 Temperature 98.2 F 10/24/25 16:48 Pulse Rate 103 H 10/24/25 16:48 Respiratory Rate 24 H 10/24/25 16:48 Blood Pressure 144/91 H 10/24/25 16:48 Pulse Oximetry 100 10/24/25 16:48 Oxygen Delivery Nasal Cannula 10/24/25 12:55 Oxygen Flow Rate 3 10/24/25 12:55 MDM MDM Narrative Medical decision making narrative: 65-year-old male Presenting for shortness of breath. On initial evaluation patient was in tachypneic using accessory muscles, tachycardic to the 110s, saturating 100% on 4 L nasal cannula. Differentials include but are not limited to: ACS, CHF Exacerbation, COPD exacerbation, PE, PNA, PTX, bronchitis, viral syndrome Notable exam findings: Tachypneic, using accessory muscles, diminished breath sounds on the right I personally reviewed the patient's lab result. Notable lab findings: No leukocytosis, stable anemia at 10.7, ABG consistent with compensated respiratory acidosis, mild hyponatremia at 1:33 a.m., mild hypokalemia at 3.3, COVID/flu/RSV negative. Chest x-ray showed Slight decrease in chronic coarse reticular opacities throughout the right lung which could be due to pneumonia or sequela prior pneumonia, asymmetric pulmonary edema or chronic interstitial lung disease. CTA chest was obtained which showed probable chronic interstitial left upper lobe changes with superimposed pneumonia. I personally reviewed the patient's EKGs: Sinus tachycardia with occasional PVC, normal axis, normal intervals, no acute ST or T-wave changes Patient was given DuoNeb and 125 mg Solu-Medrol. On re-evaluation, he did have significant improvement of his work of breathing but was still slightly acute tachypneic. Given that there was no obvious pneumonia on the chest x-ray, CTA chest obtained which did show a probable left upper consolidation. Patient was started on Rocephin and doxycycline for this. He will require admission for community-acquired pneumonia with increased work of breathing. Case was discussed with hospitalist who will admit the patient. Differential Diagnosis Differential Diagnosis: ACS, CHF Exacerbation, COPD exacerbation, PE, PNA, PTX, bronchitis, viral syndrome Lab Data 10/24/25 13:33 10/24/25 13:33 Labs: Lab Results 10/24/25 Range/Units 13:33 WBC 5.3 (4.5-10.0) K/mm3 RBC 3.94 L (4.6-6.20) M/mm3 Hgb 10.7 L (14.0-18.0) g/dL Hct 33.5 L (42.0-52.0) % MCV 85.0 (80-100) fl MCH 27.2 (26-34) pg MCHC 31.9 L (32-36) g/dl RDW 15.9 H (11.5-14.5) % Plt Count 165 D (150-375) k/mm3 MPV 9.1 (7.4-10.4) fl Immature Gran % (Auto) 0.2 (0-0.5) % Neut % (Auto) 51.6 (45.5-73.1) % Lymph % (Auto) 24.6 (18.3-44.2) % [place] % (Auto) 14.8 H (2.6-8.5) % Eos % (Auto) 7.9 H (0-4.4) % Baso % (Auto) 0.9 (0.2-1.2) % Lymph # (Auto) 1.31 (0.9-3.2) K/mm3 [place] # (Auto) 0.8 H (0.1-0.6) K/mm3 Eos # (Auto) 0.4 H (0-0.3) K/mm3 Baso # (Auto) 0.1 (0.0-0.1) K/mm3 Abs Immat Gran (auto) 0.01 (0.00-0.031) K/mm3 Absolute Neuts (auto) 2.7 (1.3-6.7) K/mm3 Absolute Nucleated RBC 0.000 (0.0-0.012) K/mm3 Nucleated RBC % 0.0 (0.0-0.2) % Sodium 133 L (137-145) mmol/L Potassium 3.3 L (3.4-5.0) mmol/L Chloride 100 (98-107) mmol/L Carbon Dioxide 26 (22-30) mmol/L Anion Gap 7 (4-12) mmol/L BUN 14 D (9-20) mg/dL Creatinine 0.63 L (0.7-1.3) mg/dL Estim Creat Clear Calc 101 ml/min Estimated GFR > 60 (59 - ) Glucose 128 H (65-110) mg/dL Calcium 9.0 (8.4-10.2) mg/dL Total Bilirubin 0.4 (0.2-1.3) mg/dL AST 24 (17-59) U/L ALT 20 (6-50) U/L Alkaline Phosphatase 106 (38-126) U/L Total Protein 7.1 (6.3-8.2) g/dL Albumin 3.7 (3.5-5.1) g/dL Influenza A (RT-PCR) Negative (Negative) Influenza B (RT-PCR) Negative (Negative) RSV (RT-PCR) Negative (Negative) SARS-CoV-2 RNA (RT-PCR) Negative (Negative) ABG Data ABG results: 10/24/25 13:14 Puncture Site Right radial ABG pH 7.438 ABG pCO2 32.4 L ABG pO2 85.7 ABG PO2/FiO2 Ratio 2.68 ABG HCO3 21.4 L ABG O2 Saturation 96.9 ABG O2 Content 16.0 ABG Base Excess -2.0 A-a Gradient 104.6 Oxyhemoglobin 94.5 Total Hemoglobin 12.0 O2 Delivery Device Nasal cannula O2 Liters/Min 3.0 FiO2 32 Imaging Data Radiologist's impression: ITS Impressions Chest X-Ray 10/24/25 13:57 IMPRESSION: 1. Slight decrease in chronic coarse reticular opacities throughout the right lung which could be due to pneumonia or sequela prior pneumonia, asymmetric pulmonary edema or chronic interstitial lung disease. 2. Unchanged linear discoid atelectasis/scarring in the left mid to upper lung with chronic elevation the left hemidiaphragm. Chest CTA 10/24/25 15:00 IMPRESSION: 1. Right lower lobe nodule measuring 1.6 cm, concerning for bronchogenic carcinoma. Abnormal mediastinal, hilar lymphadenopathy and bilateral adrenal masses, suspicious for metastatic disease. Probable metastatic disease to the sternum with associated pathologic fracture. 2: Chronic interstitial fibrosis with patchy left upper lobe consolidation, compatible with pneumonia.0 Discharge Plan Discharge Clinical Impression: Community acquired pneumonia, Acute hypokalemia, Acute hyponatremia, History of lung cancer Patient Disposition: Still a Patient Condition: Stable
[2025-10-24 13:16] VITALS: PULSE 106; RESP 24
--- OUTSIDE RECORDS SUMMARY | 2025-10-24 13:16 | XMS_ITS | Encounter Summary ---
Author Organization [facility] Address [address] [place] [address] Care Team Providers Care Building Principal Name Role Phone Ian Pollock MD Primary Care Provider [phone] Katina Casiano DO Unavailable [phone] Xavi ACOSTA MD, Jameel Gaviria Primary Care Provider + Katina Casiano DO Unavailable [phone] Tracey Ang Unavailable Unavailable Belkis Angel CIGARETTE EXAMINER-CALL CENTER DIRECTOR Primary Care Provider + Natalie Baum Primary Care Provider [phone] Encounter Details Date Type Department Care Team (Late st Contact Info) Description 03/03/2022 Telephone [facility] [address] [place] [address] Alvarez Duarte MD [address] [address] Social History Tobacco Use Types Packs/Day Years [...] on file 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 He is having transportation issues med [employer] does not run that late. He will call back to schedule when he can figure out his transportation. Please cancel this appt for him. Patient Call Back number: [phone] documented in this encounter Plan of Treatment [...] on filedocumented in this encounter Care Teams Building Principal Relationship Specialty Start Date End Date Ian Pollock MD [address] [facility] [place] [address] PCP - General 08/21/20 05/29/23 Jameel [place] III, MD [address] [facility] [place] [phone] PCP - General Internal Medicine 06/05/23 08/28/23 Belkis Angel APRN-CALL CENTER DIRECTOR [address] [place] [phone] PCP - General Nurse Practitioner 08/29/23 05/05/24 Natalie Baum [address] [place] [address] PCP - General 05/06/24 Katina Casiano DO [address] [facility] INTER[facility] MEDICINE [place], [place] Resident - PCP Internal Medicine 08/10/22 05/29/23 Katina Casiano DO [address] [facility] [place], [place] Hospitalist 06/05/23 Tracey Ang PA [address] [facility] [place] [address] Physician Assistant Professor Of Spanish 08/15/23 documented as of this encounter
--- OUTSIDE RECORDS SUMMARY | 2025-10-24 13:16 | XMS_ITS | Encounter Summary ---
Author Organization [facility] Address [address] [place] [address] Care Team Providers Care Machine Coremaker Name Role Phone Ian Pollock MD Primary Care Provider Katina Casiano DO Unavailable [phone] Xavi ACOSTA MD, Jameel Gaviria Primary Care Provider + Katina Casiano DO Unavailable [phone] Tracey Ang PA Unavailable Unavailable Belkis Angel SMALL BRAKE FORM OPERATOR-FOOTWEAR PRODUCTION MACHINE OPERATOR Primary Care Provider + Natalie Baum Primary Care Provider [phone] Encounter Details Date Type Department Care Team (Late st Contact Info) Description 04/22/2021 Telephone [facility] [address] [place] [address] Kezia Hollis MD [address] OF PULMONARY[facility] [address] Social History Tobacco Use Types Packs/Day Years Used Date Smoking Tobacco: Every Day Cigarettes 1 30 Smokeless Tobacco: Never Alcohol Use Standard Drinks/Week Comments Yes 6 (1 standard drink = 0.6 oz pure alcohol) beer madi. 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 Hollis? Call Back #: [phone] documented in this encounter Plan of Treatment [...] filedocumented in this encounter Care Teams Machine Coremaker Relationship Specialty Start Date End Date Ian Pollock MD [address] [facility] [place] [address] PCP - General 08/21/20 05/29/23 Jameel [place] III, MD [address] [facility] [place] [phone] PCP - General Internal Medicine 06/05/23 08/28/23 Belkis Angel APRN-FOOTWEAR PRODUCTION MACHINE OPERATOR [address] [place] [phone] PCP - General Nurse Practitioner 08/29/23 05/05/24 Natalie Baum [address] [place] [id number] PCP - General 05/06/24 Katina Casiano DO [address] [facility] INTER[facility] [place], [place] Resident - PCP Internal Medicine 08/10/22 05/29/23 Katina Casiano DO [address] [facility] [place], [place] Hospitalist 06/05/23 Tracey Ang PA [address] [facility] [place] [address] Physician Sharepoint Net Developer 08/15/23 documented as of this encounter
--- OUTSIDE RECORDS SUMMARY | 2025-10-24 13:16 | XMS_ITS | Encounter Summary ---
Author Organization [facility] Address [address] [place] [address] Care Team Providers Care Early Head Start Teacher Name Role Phone Monica Tellez SCHOOL VOCATIONAL EDUCATOR-ADULT LITERACY INSTRUCTOR Primary Care Provi cristobal Ian Pollock MD Primary Care Provider [phone] Ian Pollock MD Primary Care Provider [phone] Ian Pollock MD Primary Care Provider [phone] Ian Pollock MD Primary Care Provider [phone] Ian Pollock MD Primary Care Provider [phone] Katina Casiano DO Unavailable [phone] Xavi ACOSTA MD, Fred R Primary Care Provider + Katina Casiano DO Unavailable [phone] Tracey Ang Unavailable Unavailable Belkis Angel SCHOOL VOCATIONAL EDUCATOR-ADULT LITERACY INSTRUCTOR Primary Care Provider + Natalie Baum Primary Care Provider [phone] Reason for Visit * Reason Onset Date Comments Forms/questionnaires 07/12/2019 [place] Encounter Details Date Type Department Care Team (Late st Contact Info) Description 07/12/2019 Telephone [facility] General Internal Medicine [address] [facility] [address] [place] [address] Monica Tellez SCHOOL VOCATIONAL EDUCATOR-ADULT LITERACY INSTRUCTOR [address] [address] Forms/questionnaires ([facility] transportation) Social History Tobacco Use [...] file 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 Please advise. [phone] * Telephone Encounter - Shari Silvestre RN - 07/12/2019 1:11 PM CDT [facility] transportation form on your shelf. * Telephone Encounter - Hawa Allen - 07/12/2019 9:34 AM CDT Pt calling in to inform office that paperwork is on it's way from [place] concerning Medicare rides so pt can get transportation to and from [facility] appts. CB# [phone] Routed to [facility] Nurse Communication for further review documented in this encounter Plan of Treatment Not on file documented as of this encounter Visit Diagnoses Not on filedocumented in this encounter Care Teams Early Head Start Teacher Relationship Specialty Start Date End Date Monica Tellez APRN-ADULT LITERACY INSTRUCTOR PCP - General 07/03/19 11/13/19 Ian Pollock MD PCP - General 11/14/19 12/12/19 Ian Pollock MD PCP - General 12/13/19 05/25/20 Ian Pollock MD PCP - General 05/26/20 06/15/20 Ian Pollock MD [address] [facility] [place] [address] PCP - General 07/31/20 08/20/20 Ian Pollock MD [address] [facility] [place] [address] PCP - General 08/21/20 05/29/23 Jameel Hurley III, MD [address] [place] [address] PCP - General Internal Medicine 06/05/23 08/28/23 Belkis Angel, SCHOOL VOCATIONAL EDUCATOR-ADULT LITERACY INSTRUCTOR [address] [place] [phone] PCP - General Nurse Practitioner 08/29/23 05/05/24 Natalie Baum [address] [place] [address] PCP - General 05/06/24 Katina Casiano DO [address] [facility] OF [facility] INTERNAL MEDICINE [place], [place] Resident - PCP Internal Medicine 08/10/22 05/29/23 Katina Casiano DO [address] [facility] INTER[facility] [place]IC[place], [place] Hospitalist 06/05/23 Tracey Ang PA [address] [facility] [address] [facility] [place] [address] Physician Doctorate Of Chiropractic 08/15/23 documented as of this encounter
--- OUTSIDE RECORDS SUMMARY | 2025-10-24 13:16 | XMS_ITS | Clinical Summary ---
Author Organization [facility] Address [facility] [place] [address] Care Team Providers Care Crate Maker Name Role Phone Natalie Baum LE Primary Care Provider + [phone] Allergies Active Allergy Reactions Criticality Noted Date [...] drink = 0.6 oz pur e alcohol) [facility] Utilities Answer Date Recorded In the past 12 months has e [employer], oil, or water [employer] threatened to shut off services in your [...] any time in the past 12 m [facility], were you homeless or living in a retirement (including now)? No 01/19/2025 Sex and Gender [...] Health Maintenance Due Date Last Done Comments Annual Physical 1964 Hepatitis C 1979 Zoster Vaccines (1 of 2) 2011 COVID-19 Vaccine (2024- season) 2025 09/29/2023, 09/14/2021, 01/17/2021, Additional history exists Influenza Adult (#1) 2025 08/23/2024, 09/29/2023, 07/29/2022, Additional history exists Colorectal Cancer Screening Colonoscopy (10 Years) 12/07/2032 12/07/2022 DTaP, Tdap and Td Vaccines (3 - [...] patient's age to complete this topic Insurance [employer] Advance Directives * Full Code (Latest Code Status on File) Date Activated Date Inactivated Comments 01/20/2025 5:09 AM 01/21/2025 6:55 PM Care Teams Crate Maker Relationship Specialty Start Date End Date Natalie Baum NP [address] [place] [address] PCP - General FAMILY PRACTICE 01/19/25
--- OUTSIDE RECORDS SUMMARY | 2025-10-24 13:16 | XMS_ITS | Encounter Summary ---
Author Organization [facility] Address [address] [place] [address] Care Team Providers Care Cell Plasterer Name Role Phone Ian Pollock MD Primary Care Provider [phone] Ian Pollock MD Primary Care Provider [phone] Ian Pollock MD Primary Care Provider [phone] Ian Pollock MD Primary Care Provider [phone] Katina Casiano DO Unavailable [phone] Xavi ACOSTA MD, Jameel R Primary Care Provider + Katina Casiano DO Unavailable [phone] Tracey Ang PA Unavailable Unavailable Belkis Angel FOREST AND CONSERVATION WORKER-DRAFTING SUPERVISOR Primary Care Provider + Natalie Baum Primary Care Provider [phone] Reason for Visit * Reason Onset Date Comments MEDICATION REFILL 05/05/2020 Encounter Details Date Type Department Care Team (Late st Contact Info) Description 05/05/2020 Refill [facility], Critical Care and Sleep Medicine [address] [place] [address] Agnieszka Haas MD [address] [place] [address] MEDICATION REFILL Social History Tobacco Use Types [...] on file 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 Gender Identity Not on file Sexual [...] on filedocumented in this encounter Care Teams Cell Plasterer Relationship Specialty Start Date End Date Ian Pollock MD PCP - General 12/13/19 05/25/20 Ian Pollock MD PCP - General 05/26/20 06/15/20 Ian Pollock MD [address] [facility] [place] [address] PCP - General 07/31/20 08/20/20 Ian Pollock MD [address] [facility] [place] [address] PCP - General 08/21/20 05/29/23 Jameel Hurley III, MD [address] [facility] [place] [phone] PCP - General Internal Medicine 06/05/23 08/28/23 Belkis Angel, FOREST AND CONSERVATION WORKER-DRAFTING SUPERVISOR [address] [place] [phone] PCP - General Nurse Practitioner 08/29/23 05/05/24 Natalie Baum [address] [place] [address] PCP - General 05/06/24 Katina Casiano DO [address] [facility] INTERNAL MEDICINE [place], [place] Resident - PCP Internal Medicine 08/10/22 05/29/23 Katina Casiano DO [address] [facility] INTERNAL MEDICINE [place], [place] Hospitalist 06/05/23 Tracey Ang PA [address] [facility] [place] [address] Physician Liquid Sugar Fortifier 08/15/23 documented as of this encounter
--- OUTSIDE RECORDS SUMMARY | 2025-10-24 13:16 | XMS_ITS | Encounter Summary ---
Author Organization [facility] Address [address] [place] [address] Care Team Providers Care Retail Support Manager Name Role Phone Ian Pollock MD Primary Care Provider [phone] Katina Casiano DO Unavailable [phone] Xavi ACOSTA MD, Jameel R Primary Care Provider + Katina Casiano DO Unavailable [phone] Tracey Ang Unavailable Unavailable Belkis Angel MACHINE HAMPER MAKER-DISTRICT MANAGER POSTAL SERVICE Primary Care Provider + Natalie Baum Primary Care Provider [phone] Reason for Visit * Reason Onset Date Comments Letter 12/02/2020 Encounter Details Date Type Department Care Team (Late st Contact Info) Description 12/02/2020 Telephone [facility], Critical Care and Sleep Medicine [address] [place] [address] Agnieszka Haas MD [address] [place] [address] Letter Social History Tobacco Use Types Packs/Day Years Used Date Smoking Tobacco: Every Day Cigarettes 1 30 Smokeless Tobacco: Never Alcohol Use Standard Drinks/Week Comments Yes 6 (1 standard drink = 0.6 oz pure alcohol) beer madi. 25 oz 3 times a week Sex and Gender Information Value Date Recorded Sex Assigned at Not on file 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 POULTRY PICKING MACHINE TENDER Gender Identity Not on file Sexual Orientation Not on file Occupation Industry Job Start Date Job End Date disability Not on file Not on file Not on file COVID-19 Exposure Response Date Recorded In the last month, have you been in contact with someone who was confirmed or suspected to have Coronavirus / COVID-19? Unable to assess 11/18/2020 1:41 PM POULTRY PICKING MACHINE TENDER documented as of this encounter Functional Status [...] vaccine sooner Thanks. Patient Call Back number: [phone] TRY PICKING MACHINE TENDER documented in this encounter Plan [...] filedocumented in this encounter Care Teams Retail Support Manager Relationship Specialty Start Date End Date Ian Pollock MD [address] [facility] [place] [address] PCP - General 08/21/20 05/29/23 Jameel Hurley III, MD [address] [facility] [place] [phone] PCP - General Internal Medicine 06/05/23 08/28/23 Belkis Angel APRN-DISTRICT MANAGER POSTAL SERVICE [address] [place] [phone] PCP - General Nurse Practitioner 08/29/23 05/05/24 Natalie Baum [address] [place] [address] PCP - General 05/06/24 Katina Casiano DO [address] [facility] INTERNAL [place], [place] Resident - PCP Internal Medicine 08/10/22 05/29/23 Katina Casiano DO [address] [facility] OF [facility] INTERNAL MEDICINE [place], [place] Hospitalist 06/05/23 Tracey Ang PA [address] [facility] [place] [address] Physician Digital Strategy Manager 08/15/23 documented as of this encounter
--- OUTSIDE RECORDS SUMMARY | 2025-10-24 13:16 | XMS_ITS | Encounter Summary ---
Author Organization [facility] Address [address] [facility] [place] [address] Care Team Providers Care Rate Marker Name Role Phone Ian Pollock MD Primary Care Provider [phone] Katina Casiano DO Unavailable [phone] Xavi ACOSTA MD, Jameel R Primary Care Provider + Katina Casiano DO Unavailable [phone] Tracey Ang Unavailable Unavailable Belkis Angel JUVENILE CORRECTIONS OFFICER-GUILLOTINE OPERATOR Primary Care Provider + Natalie Baum Primary Care Provider [phone] Reason for Visit * Reason Onset Date Comments Refill Request 04/13/2021 Encounter Details Date Type Department Care Team (Late st Contact Info) Description 04/13/2021 Telephone [facility] [address] [place], [place] [id number] Ian Pollock MD [address] [place] [address] Refill Request Social History Tobacco Use Types Packs/Day Years Used Date Smoking Tobacco: Every Day Cigarettes 1 30 Smokeless Tobacco: Never Alcohol Use Standard Drinks/Week Comments Yes 6 (1 standard drink = 0.6 oz pure alcohol) beer madi. 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 Patient Call Back number: [phone] documented in this encounter Plan of Treatment [...] sciatica documented in this encounter Care Teams Rate Marker Relationship Specialty Start Date End Date Ian Pollock MD [address] [facility] [place] [address] PCP - General 08/21/20 05/29/23 Jameel Hurley III, MD [address] [facility] [place] [phone] PCP - General Internal Medicine 06/05/23 08/28/23 Belkis Angel, JUVENILE CORRECTIONS OFFICER-GUILLOTINE OPERATOR [address] [place] [address] [address] [place] [address] PCP - General Nurse Practitioner 08/29/23 05/05/24 Natalie Baum [address] [place] [address] PCP - General 05/06/24 Katina Casiano DO [address] [facility] INTERNAL MEDICINE [place], [place] Resident - PCP Internal Medicine 08/10/22 05/29/23 Katina Casiano DO [address] OF [facility] MEDICINE [place], [place] Hospitalist 06/05/23 Tracey Ang PA [address] [facility] [place] [address] Physician Circulation Supervisor 08/15/23 documented as of this encounter
--- OUTSIDE RECORDS SUMMARY | 2025-10-24 13:16 | XMS_ITS | Clinical Summary ---
Author Organization [facility] Address [address] [place] [address] Care Team Providers Care Traffic Monitor Specialist Name Role Phone Matthew Mccabe MD Primary Care Prov ider Stan Meza MD Unavailable [phone] Natalie Baum NP Unavailable [phone] Allergies Active Allergy Reactions Criticality Noted [...] mg total) by mouth daily before breakfast 07/16/2 019 Active aspirin 81 mg chewable tablet Take 1 tablet (81 mg total) by mouth daily Active albuterol HFA (PROVENTIL HFA,VENTOLIN HFA,PROAIR HFA) 90 mcg/actuation inhaler Inhale 2 puffs every 6 (six) hours as needed Active alfuzosin ER (UROXATRAL) 10 mg 24 [...] topically 2 (two) times a day Active nicotine polacrilex (NICORETTE) 4 mg gum Take 1 each (4 mg total) by mouth as needed Has but not currently using Active nicotine (NICODERM CQ) [address] 1 patch on the skin daily Has but isn't currently using Active mirtazapine (REMERON) 7.5 mg tablet daily Active apixaban (ELIQUIS) 5 mg tablet Take 1 tablet (5 mg total) by mouth 2 (two) times a day 60 tablet Active LORazepam (ATIVAN) 0.5 mg tablet daily Active traMADoL (ULTRAM) 50 mg tablet every 12 hours Activ e calcium carbonate-amando min D3 1,250 mg (500 mg elemental)-400 unit tablet 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 30 tablet 3 024 Active ipratropium-al buteroL (DUO-NEB) 0.5-2.5 mg/3 mL nebulizer solution INHALE 3 ML VIA NEBULIZER FOUR TIMES DAILY NEEDED FOR SHORTNESS OF BREATH OR WHEEZING 024 Active potassium chloride ER (KLOR-CON) 20 mEq CR tablet Take 1 tablet (20 mEq total) by mouth daily 14 tablet 025 Active doxycycline 100 mg tablet Take 1 tablet/capsule (100 mg total) by mouth 2 (two) times a day 025 Active food supplemt, lactose-reduce d 0.05 gram- 1.5 kcal/mL liquid Take 1 Can by mouth daily 025 Active cefdinir (OMNICEF) 300 mg capsule Take 1 capsule (300 mg total) by mouth daily 025 Active tiotropium (SPIRIVA) 18 mcg per inhalation capsule Place 1 puff (1 capsule total) into inhaler and inhale as needed 025 Active hydrOXYzine (VISTARIL) 25 mg capsule Take 1 capsule (25 mg total) by mouth 3 (three) times a day 025 Active finasteride (PROSCAR) 5 mg tablet Take 1 tablet (5 mg total) by mouth daily 025 Active prochlorperazi ne (Compazine) 10 mg tabletIndicati ons:Hypokalemi a,Primary cancer of left lower lobe of lung (HCC),Metastas is to bone,Prophylax is for chemotherapy-i nduced neutropenia Take 1 tablet (10 mg total) by mouth every 6 (six) hours as needed for nausea or vomiting 60 tablet 3 025 Active lamoTRIgine (LaMICtal) 25 mg tablet Take 1 tablet (25 mg total) by mouth daily 025 Active ondansetron (ZOFRAN) 8 mg tabletIndicati ons:Primary cancer of left lower lobe of lung (HCC),Prophyla xis for chemotherapy-i nduced neutropenia TAKE 1 TABLET BY MOUTH EVERY 8 HOURS NEEDED FOR NAUSEA AND VOMITING. USE IF PROCHLORPERAZINE DOES NOT STOP NAUSEA 24 tablet 3 025 Active senna-docusate (Senexon-S) 8.6-50 mg Take 2 tablets by mouth daily 60 tablet 3 Active varenicline tartrate (CHANTIX KATTY) 0.5 mg (11)- 1 mg (42) tablet Use as directed on package instructions, ry to quit smoking after 1 week. 53 tablet 025 2025 Active oxyCODONE (ROXICODONE) 5 mg immediate release tabletIndicati ons:Pain,cance r related pain Take 1-2 tablets (5-10 mg total) by mouth every 4 (four) hours as needed for pain 120 tablet Active morphine ER (MS CONTIN) 30 mg 12 hr tabletIndicati ons:Primary cancer of left lower lobe of lung (HCC),Metastas is to bone,Cancer related pain Take 1 tablet (30 mg total) by mouth every 12 (twelve) hours 60 tablet Active dexAMETHasone (DECADRON) 4 mg tabletIndicati ons:Primary cancer of left lower lobe of lung (HCC),Metastas is to bone,Prophylax is for chemotherapy-i nduced neutropenia Take 2 tablets (8 mg) by mouth twice a day the day before and the day after DOCEtaxel. 8 tablet 5 025 2024 Discontinued morphine ER (MS CONTIN) 30 mg 12 hr tabletIndicati ons:Primary cancer of left lower lobe of lung (HCC),Metastas is to bone,Cancer related pain Take 1 tablet (30 mg total) by mouth every 12 (twelve) hours 60 tablet 025 2024 Discontinued(R eorder) oxyCODONE (ROXICODONE) 5 mg immediate release tabletIndicati ons:Pain,cance r related pain Take 1-2 tablets (5-10 mg total) by mouth every 4 (four) hours as needed for pain 120 tablet 025 2024 Discontinued(R eorder) Active Problems Problem Noted Date Diagnosed Date Nicotine dependence with current use 09/18/2025 Hypokalemia 11/14/2024 Metastasis to bone 11/06/2024 Cancer related pain 08/15/2024 Prophylaxis for chemotherapy-induced neutropenia 08/01/2024 Primary cancer of left lower lobe of lung 2023 Cancer Staging:Clinical:Stage IVB(pM1c) - Unsigned Localized enlarged lymph nodes 05/28/2024 Hilar mass 05/28/2024 Encounters Date Type Department Care Team Description 10/15/2025 Telephone [facility] Medicine Oncology [address] [place] [address] 5 [place] [address] Sasha Hernandes RN 10/09/2025 10:30 AM [employer] Infusion [facility] - Infusion [address] [facility] 5 [place] [address] Primary cancer of left lower lobe of lung (HCC) (Primary Dx) 10/09/2025 9:40 AM [employer] Office Visit [facility] Medicine Oncology [address] [place] [phone] Stan Meza MD Primary cancer of left lower lobe of lung (HCC) (Primary Dx); Metastasis to bone; Prophylaxis for chemotherapy-induce d neutropenia 10/09/2025 9:00 AM [employer] - 10/09/2025 11:59 PM [employer] Hospital Encounter [facility] [address] [place] [phone] Stan Meza MD Metastasis to bone; Primary cancer of left lower lobe of lung (HCC) Discharge Disposition: Discharge to home or self care 10/09/2025 8:45 AM [employer] Clinical Support [facility] - Lab Collection [address] [place] [address] Metastasis to bone; Primary cancer of left lower lobe of lung (HCC) 10/09/2025 Documentation [facility] Nutrition Counseling 1 [place] [address] 10/06/2025 Social Work [facility] Medicine Oncology [address] [place] [phone] Sarah Brunner LCSW 10/06/2025 Telephone [facility] Medicine Oncology [address] [place] [phone] Sasha Hernandes RN 10/02/2025 Documentation [facility] Oncology [address] [place] [phone] Sarah Brunner, BUNCH BREAKER 09/30/2025 Social Work [facility] Oncology [address] [place] [phone] Sarah Brunner, BUNCH BREAKER 09/30/2025 Telephone [facility] Oncology [address] [place] [phone] Maddy Freire, ALYX 09/23/2025 Telephone [facility] Oncology [address] [place] [phone] Janice Kilgore CMA 09/22/2025 Telephone [facility] Oncology [address] [place] [phone] Sasha Hernandes RN 09/18/2025 11:00 AM [employer] Infusion [facility] - Infusion [address] [place] [address] Prophylaxis for chemotherapy-induce d neutropenia (Primary Dx); Metastasis to bone; Primary cancer of left lower lobe of lung (HCC) 09/18/2025 9:00 AM [employer] Office Visit [facility] Oncology [address] [place] [phone] Shari Quintana NP Metastasis to bone (Primary Dx); Primary cancer of left lower lobe of lung (HCC); Prophylaxis for chemotherapy-induce d neutropenia; Nicotine dependence with current use 09/18/2025 8:00 AM [employer] Clinical Support [facility] - Lab Collection [address] [place] [address] Metastasis to bone; Primary cancer of left lower lobe of lung (HCC); Prophylaxis for chemotherapy-induce d neutropenia 09/18/2025 Documentation [facility] 1 [place] [address] 09/15/2025 8:44 AM [employer] - 09/15/2025 11:59 PM [employer] Hospital Encounter [facility] 1 [place] [address] Primary cancer of left lower lobe of lung (HCC) Discharge Disposition: Discharge to home or self care 09/11/2025 Social Work [facility] Medicine Oncology [address] [place] [phone] Sarah Brunner, BUNCH BREAKER 09/10/2025 Telephone [facility] Radiology 1 [place] [address] Tg Millan RN 09/09/2025 Social Work [facility] Medicine Oncology [address] [place] [phone] Sarah Brunner, BUNCH BREAKER 08/28/2025 11:30 AM CDT Infusion [facility] - Infusion [address] [place] [address] 5 [place] [address] Prophylaxis for chemotherapy-induce d neutropenia (Primary Dx); Metastasis to bone; Primary cancer of left lower lobe of lung (HCC) 08/28/2025 9:40 AM CDT Office Visit [facility] Medicine Oncology [address] [place] [phone] Stan Meza MD Primary cancer of left lower lobe of lung (HCC) (Primary Dx); Metastasis to bone; Prophylaxis for chemotherapy-induce d neutropenia 08/28/2025 8:45 AM CDT Clinical Support [facility] - Lab Collection [address] [place] [address] 5 [place] [address] Metastasis to bone; Primary cancer of left lower lobe of lung (HCC); Prophylaxis for chemotherapy-induce d neutropenia 08/28/2025 8:30 AM CDT Lab [facility] Medicine Oncology Lab [address] [place] [phone] Metastasis to bone; Primary cancer of left lower lobe of lung (HCC); Prophylaxis for chemotherapy-induce d neutropenia 08/28/2025 Documentation [facility] 1 [place] [phone] 08/25/2025 Documentation [facility] Medicine Oncology [address] [place] [address] [address] [place] [phone] Carolyn Mckenna, BUNCH BREAKER 08/22/2025 Telephone [facility] Medicine Oncology [address] [place] [address] 5 [place] [phone] Sasha Hernandes RN 08/21/2025 9:00 AM CDT Lab [facility] - Lab Collection [address] [facility] 5 [place] [address] Metastasis to bone; Primary cancer of left lower lobe of lung (HCC); Prophylaxis for chemotherapy-induce d neutropenia 08/21/2025 7:24 AM CDT - 08/21/2025 11:59 PM CDT Hospital [facility] [address] [place] [phone] Stan Meza MD Primary cancer of left lower lobe of lung (HCC) Discharge Disposition: Discharge to home or self care 08/18/2025 Documentation [facility] Medicine Oncology [address] [facility] [address] [place] [address] Carolyn Mckenna, BUNCH BREAKER 08/01/2025 9:00 AM CDT Infusion [facility] - Infusion [address] [place] [address] Floor 5 [place] [address] Metastasis to bone (Primary Dx); Primary cancer of left lower lobe of lung (HCC); Prophylaxis for chemotherapy-induce d neutropenia 08/01/2025 Orders Only [facility] Medicine Oncology [address] [place] [address] 5 [place] [phone] Sasha Hernandes, RN 08/01/2025 Telephone [facility] Medicine Oncology [address] [place] [phone] Sasha Hernandes, RN 08/01/2025 Social Work [facility] Medicine Oncology [address] [place] [address] Floor 1, [address] [place] [phone] Megan Parish, BUNCH BREAKER 07/31/2025 12:30 PM CDT Infusion [facility] - Infusion [address] [place] [address] Floor 5 [place] [address] Primary cancer of left lower lobe of lung (HCC) (Primary Dx); Metastasis to bone; Prophylaxis for chemotherapy-induce d neutropenia 07/31/2025 11:20 AM CDT Office Visit [facility] Medicine Oncology [address] [facility] Floor 5 [place] [phone] Shari Quintana, LE Primary cancer of left lower lobe of lung (HCC) (Primary Dx); Metastasis to bone; Prophylaxis for chemotherapy-induce d neutropenia 07/31/2025 10:30 AM CDT Lab [facility] - Lab Collection [address] [facility] 5 [place] [address] Metastasis to bone; Primary cancer of left lower lobe of lung (HCC); Prophylaxis for chemotherapy-induce d neutropenia 07/31/2025 Documentation [facility] 1 [place] [phone] from Last 3 Months Immunizations Immunization Administration [...] vative Free, Intramuscular 08/23/2024 Influenza, Unspecified 08/13/2020,11/02/2015 [employer] ([employer]) SARS-CoV-2 Vaccination 01/17/2021 Pneumococcal Conjugate Pcv20 [...] file Legal Sex Male 6:04 PM [employer] Gender Identity Not on file Sexual Orientation Not on file Last Filed Vital Signs Vital Sign Reading Time Taken Comments Blood Pressure 116/81 10/09/2025 10:00 AM [employer] Pulse 103 10/09/2025 10:00 AM [employer] Temperature 36.4 C (97.5 F) 10/09/2025 10:00 AM [employer] Respiratory Rate 18 10/09/2025 10:00 AM [employer] Oxygen Saturation 100% 10/09/2025 10:00 AM [employer] Inhaled Oxygen Concentration - - Weight 89.8 kg (198 lb) 10/09/2025 10:00 AM [employer] Height 175.3 cm (5' 9) 09/15/2025 9:20 AM [employer] Body Mass Index 29.24 09/15/2025 9:20 AM [employer] Plan of Treatment Health Maintenance Due Date Last Done Comments Colon Cancer Screening-Colonoscopy 1961 Depression Screening 1961 Prostate Cancer Screening-PSA 1961 Hepatitis B Screening 1979 Regular Well Visit/Exam 18-64 1979 Zoster Vaccine (1 of 2) 1980 Covid-19 Vaccine (5 - 2024-2 6 season) 2025 09/29/2023, 09/14/2021, 01/17/2021, Additional history exists Influenza Vaccine (#1) 2025 , 08/23/2024, 08/23/2024, Additional history exists DTaP/Tdap/Td Vaccine (3 - Td or Tdap) 09/29/2033 09/29/2023, 07/17/2017 Pneumococcal vaccine <65 Completed 07/29/2022, 06/30 Hepatitis C Screening Completed 05/29/2025 Medical Devices Implanted Type Area Sewer Inspector Device Identifier Shelf Expiration Date Model / Serial / Lot Rigth Knee Replacement Right: Knee [employer] Xcela Power Port 8fr [id number] - [id number] Implanted:Qty: 1 on 09/15/2025 by Manjit Jeong MD at [facility] [employer] 01/26/2030 [id number] / / [id number] Procedures Procedure Name Priority Date/Time Associated Diagnosis Comments URINALYSIS AND REFLEX TO MICROSCOPIC AND CULTURE Routine 10/09/2025 11:12 AM [employer] Primary cancer of left lower lobe of lung (HCC) [id number] Routine 10/09/2025 11:10 AM [employer] Primary cancer of left lower lobe of lung (HCC) CT CHEST ABDOMEN PELVIS W CONTRAST Schedule Routine, Read Routine (OP Routine) 10/09/2025 9:47 AM [employer] Metastasis to bone Primary cancer of left lower lobe of lung (HCC) EGFR STAT 10/09/2025 8:57 AM [employer] Metastasis to bone Primary cancer of left lower lobe of lung (HCC) DIFFERENTIAL AUTO Routine 10/09/2025 8:5 7 AM [employer] Metastasis to bone Primary cancer of left lower lobe of lung (HCC) CBC WITH AUTO DIFFERENTIAL Routine 10/09/2025 8:57 AM [employer] Metastasis to bone Primary cancer of left lower lobe of lung (HCC) COMPREHENSIVE METABOLIC PANEL STAT 10/09/2025 8:57 AM [employer] Metastasis to bone Primary cancer of left lower lobe of lung (HCC) EGFR STAT 09/18/2025 8:30 AM [employer] Metastasis to bone Primary cancer of left lower lobe of lung (HCC) Prophylaxis for chemotherapy-induc ed neutropenia DIFFERENTIAL AUTO Routine 09/18/2025 8:3 0 AM [employer] Metastasis to bone Primary cancer of left lower lobe of lung (HCC) Prophylaxis for chemotherapy-induc ed neutropenia CBC WITH AUTO DIFFERENTIAL Routine 09/18/2025 8:30 AM [employer] Metastasis to bone Primary cancer of left lower lobe of lung (HCC) Prophylaxis for chemotherapy-induc ed neutropenia COMPREHENSIVE METABOLIC PANEL STAT 09/18/2025 8:30 AM [employer] Metastasis to bone Primary cancer of left lower lobe of lung (HCC) Prophylaxis for chemotherapy-induc ed neutropenia PORT PLACEMENT CHEST >5 YEARS Schedule Routine, Read Routine (OP Routine) 09/15/2025 10:30 AM [employer] Primary cancer of left lower lobe of [...] lung (HCC) Prophylaxis for chemotherapy-induc ed neutropenia HEPATITIS C ANTIBODY Routine 05/29/2025 12:49 PM CDT Primary cancer of left lower lobe of lung (HCC) from Last 3 Months or Most Recently Relevant to Health Maintenance Results * (ABNORMAL) Urinalysis reflex to microscopic and culture Urine, clean voided (10/09/2025 11:12 AM [employer]) Color, ur Straw Yellow Clarity, ur Clear Clear [facility] Specific gravity, ur >1.042(A) 1.003 - 1.030 [facility] pH, urine 7.0 [facility] Comment: Interpretive Data U rine pH is affected by diet, medications, systemic acid-base disturbances, and renal tubular function. pH may affect urinary stone formation. For example, urine pH below 6.0 may help reduce the tendency for calcium phosphate stones and pH greater than 6.0 may reduce the tendency for uric acid stone formation. Source: [employer] Current Interpretive Data was last revised on 2017 Protein, ur ql Trace Negative [facility] Glucose, ur ql Negative Negative [facility] Ketones, ur Negative Negative [facility] Bilirubin, ur Negative Negative [facility] Blood, ur Negative Negative [facility] Urobilinogen, ur <2.0 <2.0 [facility] Nitrite, ur Negative Negative [facility] Leukocyte esterase, ur Negative [facility] UA reflex comment Reflex conditions for microscopic UA and culture not met. [facility] Urine, clean voided 10/09/2025 11:12 AM [employer] 10/09/2025 12:58 PM [employer] Stan Meza MD LAB MICROBIOLOGY - GENERA L ORDERABLES Final Result Performing Organization Address [facility] Co de Phone Number [facility] [place] [address] * [email or web address] (10/09/2025 11:10 AM [employer]) MSI-HIGH Not detected 10/17/2025 12:00 AM [employer] [facility] TMB 9.49 mut/Mb 10/17/2025 12:00 AM [employer] [facility] TUMOR FRACTION 6.7% 10/17/2025 12:00 AM [employer] [facility] Blood specimen (specimen) Venous blood specimen / Unknown 10/09/2025 11:10 AM [employer] 10/10/2025 4:01 PM [employer] Narrative This result has genomic variants that were not included in this document. Stan Meza MD LAB GENETIC TESTING Final Result Performing Organization Address [facility] Co de Phone Number [facility] [address] [place] [id number] [phone] [facility] [address] [place] [address] * CT Chest Abdomen Pelvis W Contrast (10/09/2025 9:47 AM [employer]) Anatomical Region Laterality Modality Body N/A Computed Tomogra phy 10/09/2025 10:0 3 AM [employer] Impressions 10/09/2025 10:03 AM [employer] Worsening metastatic disease with increase mediastinal and hilar lymphadenopathy. Increased size right lower lobe nodule. Slight increase in left adrenal metastasis. Electronically signed by: Angel Almanza M.D. Narrative 10/09/2025 10:03 AM [employer] EXAMINATION: Computed tomography of the chest abdomen and pelvis with intravenous contrast material. HISTORY: Non-small cell lung cancer. TECHNIQUE: CT scan of the chest abdomen and pelvis was performed after the administration of 70 mL of Optiray 350 following standard technique. FINDINGS:. A prior CT scan dated 08/21/2025 is used as comparison. CHEST:. Mediastinal windows demonstrate the presence of a right-sided port a catheter with the distal tip in the right atrium. There is extensive lymphadenopathy of the mediastinum and hilar regions. The adenopathy has increased compared to the prior exam. There is a left hilar central mass which appears slightly larger than on the prior exam. It now measures 2 cm in diameter, previously 19 mm. As reference, there is a right paratracheal lymph node noted on table position -153.0 that measures 3 cm in diameter, previously 1.7 cm. A right hilar lymph node on table position -119.0 measures 1.9 cm, previously 1 cm. Left hilar lymphadenopathy is also increased. There is no central pulmonary embolism. There is no pericardial effusion. There is no pleural effusion. Lung windows: Noted again are changes of bilateral pulmonary fibrosis. Right lower lobe nodule measures 1.2 cm, previously 7 mm. The rest of the lungs are unchanged. ABDOMEN:. Several small low-attenuation lesions in the liver, stable. Gallbladder is present and is normal. The portal vein and branches are normal. The pancreas is normal. There is a left adrenal mass that measures 1.9 cm, unchanged. Right adrenal mass measures 3 cm, previously 2.7 cm. Normal right kidney. Left kidney cysts. Spleen is normal. Normal small bowel. Normal large bowel. Pelvis:. Large prostate gland. There is no pelvic lymphadenopathy. There is no inguinal lymphadenopathy. Bones:. Healed fracture of the sternum, which may be pathological, but is unchanged. Degenerative changes of the lumbosacral spine. Procedure Note Angel Almanza MD - 10/09/2025 EXAMINATION: Computed tomography of the chest abdomen and pelvis with intravenous contrast material. HISTORY: Non-small cell lung cancer. TECHNIQUE: CT scan of the chest abdomen and pelvis was performed after the administration of 70 mL of Optiray 350 following standard technique. FINDINGS:. A prior CT scan dated 08/21/2025 is used as comparison. CHEST:. Mediastinal windows demonstrate the presence of a right-sided port a catheter with the distal tip in the right atrium. There is extensive lymphadenopathy of the mediastinum and hilar regions. The adenopathy has increased compared to the prior exam. There is a left hilar central mass which appears slightly larger than on the prior exam. It now measures 2 cm in diameter, previously 19 mm. As reference, there is a right paratracheal lymph node noted on table position -153.0 that measures 3 cm in diameter, previously 1.7 cm. A right hilar lymph node on table position -119.0 measures 1.9 cm, previously 1 cm. Left hilar lymphadenopathy is also increased. There is no central pulmonary embolism. There is no pericardial effusion. There is no pleural effusion. Lung windows: Noted again are changes of bilateral pulmonary fibrosis. Right lower lobe nodule measures 1.2 cm, previously 7 mm. The rest of the lungs are unchanged. ABDOMEN:. Several small low-attenuation lesions in the liver, stable. Gallbladder is present and is normal. The portal vein and branches are normal. The pancreas is normal. There is a left adrenal mass that measures 1.9 cm, unchanged. Right adrenal mass measures 3 cm, previously 2.7 cm. Normal right kidney. Left kidney cysts. Spleen is normal. Normal small bowel. Normal large bowel. Pelvis:. Large prostate gland. There is no pelvic lymphadenopathy. There is no inguinal lymphadenopathy. Bones:. Healed fracture of the sternum, which may be pathological, but is unchanged. Degenerative changes of the lumbosacral spine. IMPRESSION: Worsening metastatic disease with increase mediastinal and hilar lymphadenopathy. Increased size right lower lobe nodule. Slight increase in left adrenal metastasis. Electronically signed by: Angel Almanza M.D. us Stan Meza MD [facility] [place]ED[place] Final R esult * eGFR (10/09/2025 8:57 AM [employer]) eGFR >90 >=60 mL/min/1. 73 m2 Comment: [...] interpretive data was last reviewed 2021. Blood 10/09/2025 8:57 AM [employer] 10/09/2025 9:01 AM [employer] us Stan Meza MD LAB BLOOD ORDERABLES Yolette banda Result [facility] One [facility] [place] [address] * (ABNORMAL) Differential, auto (10/09/2025 8:57 AM [employer]) Neutrophil abs 2.98 1.50 - 6.50 K/cumm Comment:Testing performed by : [facility], [address] [place] [phone] Lymphocyte abs 0.71(L) 0.80 - 3.30 K/cumm [facility] Comment:Testing performed by : [facility], [address] [place] [phone] Monocyte abs 0.66 0.20 - 0.80 K/cumm [facility] Comment:Testing performed by : [facility], [address] [place] [phone] Eosinophil abs 0.08 0.00 - 0.50 K/cumm [facility] Comment:Testing performed by : [facility], [address] [place] [phone] Basophil abs 0.06 0.00 - 0.10 K/cumm [facility] Comment:Testing performed by : [facility], [address] [place] [phone] Neutrophil pct 66.3 % [facility]J Comment: Interpretive Data Percent cell count reference ranges are not reported, since discordance with absolute values may lead to misinterpretation of CBC data. Current Interpretive Data was last revised on 2018. Testing performed by: [facility], [address] [place], [place] [phone] Lymphocyte pct 15.9 % C[facility] BJ Comment: Interpretive Data Percent cell count reference ranges are not reported, since discordance with absolute values may lead to misinterpretation of CBC data. Current Interpretive Data was last revised on 2018. Testing performed by: [facility], [address] [place] [address] Monocyte pct 14.8 % [facility] Comment: Interpretive Data Percent cell count reference ranges are not reported, since discordance with absolute values may lead to misinterpretation of CBC data. Current Interpretive Data was last revised on 2018. Testing performed by: [facility], [address] [place], [place] [phone] Eosinophil pct 1.7 % [facility] Comment: Interpretive Data Percent cell count reference ranges are not reported, since discordance with absolute values may lead to misinterpretation of CBC data. Current Interpretive Data was last revised on 2018. Testing performed by: [facility], [address] [place] [phone] Basophil pct 1.4 % [facility] Comment: Interpretive Data Percent cell count reference ranges are not reported, since discordance with absolute values may lead to misinterpretation of CBC data. Current Interpretive Data was last revised on 2018. Testing performed by: [facility], [address] [place] [phone] Blood 10/09/2025 8:57 AM [employer] 10/09/2025 8:57 AM [employer] us Stan Meza MD LAB BLOOD ORDERABLES Yolette veronika Result [facility] One [facility] [place] [address] * (ABNORMAL) CBC with auto differential (10/09/2025 8:57 AM [employer]) WBC 4.49 3.80 - 9.90 K/cumm Comment:Testing performed by : [facility], [address] [place] [address] Hgb 9.5(L) 13.0 - 17.5 g/dL [facility] Comment:Testing performed by : [facility], [address] [place] [address] Hct 29.9(L) 38.9 - 50.3 % [facility] BJ Comment:Testing performed by : [facility], [address] [place] [address] Plt 246 150 - 400 K/cumm [facility] Comment:Testing performed by : [facility], [address] [place] [address] MPV 6.6(L) 6.8 - 10.4 fL [facility] Comment:Testing performed by : [facility], [address] [place] [address] RBC 3.44(L) 4.30 - 5.80 M/cumm [facility] Comment:Testing performed by : [facility], [address] [place] [address] MCV 87.0 81.3 - 96.4 fL [facility] Comment:Testing performed by : [facility], [address] [place] [address] MCH 27.7 27.1 - 33.3 pg [facility] Comment:Testing performed by : [facility], [address] [place] [address] MCHC 31.9(L) 32.3 - 35.7 g/dL [facility] Comment:Testing performed by : [facility], [address] [place] [phone] RDW CV 17.4(H) 11.1 - 14.9 % [facility] Comment:Testing performed by : [facility], [address] [place] [phone] NRBC abs 0.00 0.00 - 0.01 K/cumm [facility] Comment:Testing performed by : [facility], [address] [place] [phone] Blood 10/09/2025 8:57 AM [employer] 10/09/2025 8:57 AM [employer] us Stan Meza MD LAB BLOOD ORDERABLES Yolette banda Result [facility] One [facility] [place] [address] * (ABNORMAL) Comprehensive metabolic panel (10/09/2025 8:57 AM [employer]) Sodium 133(L) 135 - 145 mmol/L Potassium, pl 4.0 3.3 - 4.9 mmol/L [facility] Chloride 100 97 - 110 mmol/L [facility] CO2 28 22 - 32 mmol/L [facility] Anion gap 5 2 - 15 mmol/L [facility] BUN 5(L) 6 - 25 mg/dL [facility] Creatinine 0.64(L) 0.80 - 1.30 mg/dL [facility] Glucose 98 70 - 199 mg/dL [facility] Comment: Interpretive Data Fasting glucose >/= 126 [...] interpretive data was last revised 2022. Calcium 8.8 8.5 - 10.3 mg/dL [facility] Bilirubin, total 0.4 0.1 - 1.2 mg/dL [facility] Protein, pl 6.4(L) 6.5 - 8.5 g/dL [facility] Albumin 3.6 3.5 - 5.0 g/dL [facility] Alk phos 108 40 - 130 Units/L [facility] ALT 10 7 - 55 Units/L [facility] AST 16 10 - 50 Units/L [facility] Blood 10/09/2025 8:57 AM [employer] 10/09/2025 9:01 AM [employer] us Stan Meza MD LAB BLOOD ORDERABLES Yolette banda Result [facility] One [facility] [place] [address] * eGFR (09/18/2025 8:30 AM [employer]) eGFR >90 >=60 mL/min/1. 73 m2 Comment: [...] last reviewed 2021. Blood 09/18/2025 8:30 AM [employer] 09/18/2025 8:35 AM [employer] us Stan Meza MD LAB BLOOD ORDERABLES Yolette banda Result [facility] One [facility] [place] [address] * (ABNORMAL) Differential, auto (09/18/2025 8:30 AM [employer]) Neutrophil abs 2.61 1.50 - 6.50 K/cumm Comment:Testing performed by : [facility], [address] [place] [phone] Lymphocyte abs 0.87 0.80 - 3.30 K/cumm [facility] Comment:Testing performed by : [facility], [address] [place], [place] [phone] Monocyte abs 0.86(H) 0.20 - 0.80 K/cumm [facility] Comment:Testing performed by : [facility], [address] [place] [phone] Eosinophil abs 0.17 0.00 - 0.50 K/cumm [facility] Comment:Testing performed by : [facility], [address] [place] [phone] Basophil abs 0.07 0.00 - 0.10 K/cumm [facility] Comment:Testing performed by : [facility], [address] [place] [phone] Neutrophil pct 57.0 % [facility] Comment: Interpretive Data Percent cell count reference ranges are not reported, since discordance with absolute values may lead to misinterpretation of CBC data. Current Interpretive Data was last revised on 2018. Testing performed by: [facility], [address] [place] [phone] Lymphocyte pct 19.1 % [facility] Comment: Interpretive Data Percent cell count reference ranges are not reported, since discordance with absolute values may lead to misinterpretation of CBC data. Current Interpretive Data was last revised on 2018. Testing performed by: [facility], [address] [place] [phone] Monocyte pct 18.8 % [facility] Comment: Interpretive Data Percent cell count reference ranges are not reported, since discordance with absolute values may lead to misinterpretation of CBC data. Current Interpretive Data was last revised on 2018. Testing performed by: [facility], [address] [place] [phone] Eosinophil pct 3.6 % [facility] Comment: Interpretive Data Percent cell count reference ranges are not reported, since discordance with absolute values may lead to misinterpretation of CBC data. Current Interpretive Data was last revised on 2018. Testing performed by: [facility], [address] [place] [phone] Basophil pct 1.5 % [facility] Comment: Interpretive Data Percent cell count reference ranges are not reported, since discordance with absolute values may lead to misinterpretation of CBC data. Current Interpretive Data was last revised on 2018. Testing performed by: [facility], [address] [place] [phone] Blood 09/18/2025 8:30 AM [employer] 09/18/2025 8:34 AM [employer] us Stan Meza MD LAB BLOOD ORDERABLES Yolette veronika Result [facility] One [facility] [place] [address] * (ABNORMAL) CBC with auto differential (09/18/2025 8:30 AM [employer]) WBC 4.57 3.80 - 9.90 K/cumm Comment:Testing performed by : [facility], [address] [place] [phone] Hgb 10.0(L) 13.0 - 17.5 g/dL [facility] Comment:Testing performed by : [facility], [address] [place] [phone] Hct 30.8(L) 38.9 - 50.3 % [facility] Comment:Testing performed by : [facility], [address] [place] [address] Plt 242 150 - 400 K/cumm [facility] Comment:Testing performed by : [facility], [address] [place] [address] MPV 6.8 6.8 - 10.4 fL [facility] Comment:Testing performed by : [facility], [address] [place] [address] RBC 3.66(L) 4.30 - 5.80 M/cumm [facility] Comment:Testing performed by : [facility], [address] [place] [address] MCV 84.0 81.3 - 96.4 fL [facility] Comment:Testing performed by : [facility], [address] [place] [address] MCH 27.3 27.1 - 33.3 pg [facility] Comment:Testing performed by : [facility], [address] [place] [address] MCHC 32.5 32.3 - 35.7 g/dL [facility] Comment:Testing performed by : [facility], [address] [place] [address] RDW CV 17.7(H) 11.1 - 14.9 % [facility] Comment:Testing performed by : [facility], [address] [place] [address] NRBC abs 0.00 0.00 - 0.01 K/cumm [facility] Comment:Testing performed by : [facility], [address] [place] [address] Blood 09/18/2025 8:30 AM [employer] 09/18/2025 8:34 AM [employer] us Stan Meza MD LAB BLOOD ORDERABLES Yolette banda Result [facility] One [facility] Department of Laboratories [place], [place] [id number] * (ABNORMAL) Comprehensive metabolic panel (09/18/2025 8:30 AM [employer]) Sodium 135 135 - 145 mmol/L Potassium, pl 4.3 3.3 - 4.9 mmol/L [facility] Chloride 101 97 - 110 mmol/L [facility] CO2 27 22 - 32 mmol/L [facility] Anion gap 7 2 - 15 mmol/L [facility] BUN 6 6 - 25 mg/dL [facility] Creatinine 0.61(L) 0.80 - 1.30 mg/dL [facility] Glucose 102 70 - 199 mg/dL [facility] Comment: Interpretive Data Fasting glucose >/= 126 [...] Calcium 9.0 8.5 - 10.3 mg/dL [facility] Bilirubin, total 0.4 0.1 - 1.2 mg/dL [facility] Protein, pl 6.6 6.5 - 8.5 g/dL [facility] Albumin 3.8 3.5 - 5.0 g/dL [facility] Alk phos 106 40 - 130 Units/L [facility] ALT 10 7 - 55 Units/L [facility] AST 16 10 - 50 Units/L [facility] Blood 09/18/2025 8:30 AM [employer] 09/18/2025 8:35 AM [employer] us Stan Meza MD LAB BLOOD ORDERABLES Yolette banda Result [facility] One [facility] Department [place] [address] * IR Port Placement Chest > 5 Years (09/15/2025 10:30 AM [employer]) Anatomical Region Laterality Modality Chest N/A Radio Fluoroscop y 09/15/2025 10:3 4 AM [employer] Impressions 09/15/2025 10:34 AM [employer] Successful chest wall port placement. PLAN: The catheter is ready for immediate use. Please note that a power injectable port was placed. When treatment is completed, removal can be scheduled by calling [facility] - [phone] [facility] - [phone] Electronically signed by: Lanie Philippe PA-C Narrative 09/15/2025 10:34 AM [employer] EXAMINATION: PORT PLACEMENT USING ULTRASOUND GUIDANCE (STD [...] was obtained. Prior to beginning the procedure, Mchenry Protocol was used to confirm the patient's [...] was obtained. Prior to beginning the procedure, Mchenry Protocol was used to confirm the patient's [...] completed, removal can be scheduled by calling [facility] - [phone] [facility] - [phone] Electronically signed by: Lanie Philippe PA-C Stan Meza MD IMG IR PROCEDURES Final R esult * (ABNORMAL) Protime-INR (08/28/2025 11:15 AM CDT) PT 15.2(H) 10.2 - 13.5 sec INR 1.35(H) 0.90 - 1.20 [facility] Comment: Interpretive data Oral anticoagulant therapeutic ranges: Venous thromboembolism prophylaxis or treatment: 2.0-3.0 CARDIOLOGY Standard range: 2.0-3.0 High-intensity range: 2.5-3.5 Refer to indication-specific guidelines for appropriate target ranges for prosthetic heart valve replacement. Current interpretive data was last revised on 2019. Blood 08/28/2025 11:1 5 AM CDT 08/28/2025 11:39 AM CDT Stan Meza MD LAB BLOOD ORDERABLES Yolette l Result Performing Organization Address [facility] Co de Phone Number [facility] [place] [address] * eGFR (08/28/2025 9:15 AM CDT) eGFR [...] 9:15 AM CDT 08/28/2025 9:21 AM CDT Stan Meza MD LAB BLOOD ORDERABLES Yolette l Result Performing Organization Address [facility]/ZIP Co de Phone Number [facility] [place] [address] * (ABNORMAL) Differential, auto (08/28/2025 9:15 AM CDT) Neutrophil abs 1.79 1.50 - 6.50 K/cumm Comment:Testing performed by : [facility], [address] [place] [phone] Lymphocyte abs 1.10 0.80 - 3.30 K/cumm [facility] Comment:Testing performed by : [facility], [address] [place], [place] [phone] Monocyte abs 0.75 0.20 - 0.80 K/cumm [facility] Comment:Testing performed by : [facility], [address] [place], [place] [phone] Eosinophil abs 0.82(H) 0.00 - 0.50 K/cumm [facility] Comment:Testing performed by : [facility], [address] [place], [place] [phone] Basophil abs 0.06 0.00 - 0.10 K/cumm [facility] Comment:Testing performed by : [facility], [address] [place], [place] [phone] Neutrophil pct 39.6 % [facility] Comment: Interpretive Data Percent cell count reference ranges are not reported, since discordance with absolute values may lead to misinterpretation of CBC data. Current Interpretive Data was last revised on 2018. Testing performed by: [facility], [address] [place] [phone] Lymphocyte pct 24.4 % [facility] Comment: Interpretive Data Percent cell count reference ranges are not reported, since discordance with absolute values may lead to misinterpretation of CBC data. Current Interpretive Data was last revised on 2018. Testing performed by: [facility], [address] [place] [address] Monocyte pct 16.6 % [facility] Comment: Interpretive Data Percent cell count reference ranges are not reported, since discordance with absolute values may lead to misinterpretation of CBC data. Current Interpretive Data was last revised on 2018. Testing performed by: [facility], [address] [place] [phone] Eosinophil pct 18.0 % [facility] Comment: Interpretive Data Percent cell count reference ranges are not reported, since discordance with absolute values may lead to misinterpretation of CBC data. Current Interpretive Data was last revised on 2018. Testing performed by: [facility], [address] [place] [phone] Basophil pct 1.3 % [facility] Comment: Interpretive Data Percent cell count reference ranges are not reported, since discordance with absolute values may lead to misinterpretation of CBC data. Current Interpretive Data was last revised on 2018. Testing performed by: [facility], [address] [place] [phone] Blood 08/28/2025 9:15 AM CDT 08/28/2025 9:25 AM CDT us Stan Meza MD LAB BLOOD ORDERABLES Yolette banda Result [facility] [place] [address] * (ABNORMAL) CBC with auto differential (08/28/2025 9:15 AM CDT) WBC 4.52 3.80 - 9.90 K/cumm Comment:Testing performed by : [facility], [address] [place] [phone] Hgb 10.5(L) 13.0 - 17.5 g/dL [facility] Comment:Testing performed by : [facility], [address] [place] [address] Hct 32.5(L) 38.9 - 50.3 % [facility] Comment:Testing performed by : [facility], [address] [place] [phone] Plt 219 150 - 400 K/cumm [facility] Comment:Testing performed by : [facility], [address] [place] [address] MPV 7.4 6.8 - 10.4 fL [facility] Comment:Testing performed by : [facility], [address] [place] [address] RBC 3.88(L) 4.30 - 5.80 M/cumm [facility] Comment:Testing performed by : [facility], [address] [place], [place] [phone] MCV 83.8 81.3 - 96.4 fL [facility] Comment:Testing performed by : [facility], [address] [place], [place] [phone] MCH 27.0(L) 27.1 - 33.3 pg [facility] Comment:Testing performed by : [facility], [address] [place], [place] [phone] MCHC 32.2(L) 32.3 - 35.7 g/dL [facility] Comment:Testing performed by : [facility], [address] [place], [place] [phone] RDW CV 18.9(H) 11.1 - 14.9 % [facility] Comment:Testing performed by : [facility], [address] [place], [place] [phone] NRBC abs 0.00 0.00 - 0.01 K/cumm [facility] Comment:Testing performed by : [facility], [address] [place], [place] [phone] Blood 08/28/2025 9:15 AM CDT 08/28/2025 9:25 AM CDT us Stan Meza MD LAB BLOOD ORDERABLES Yolette veronika Result [facility] One [facility] [place] [address] * (ABNORMAL) Comprehensive metabolic panel (08/28/2025 9:15 AM CDT) Sodium 136 135 - 145 mmol/L Potassium, pl 4.2 3.3 - 4.9 mmol/L [facility] Chloride 103 97 - 110 mmol/L [facility] CO2 24 22 - 32 mmol/L [facility] Anion gap 9 2 - 15 mmol/L [facility] BUN 5(L) 6 - 25 mg/dL [facility] Creatinine 0.65(L) 0.80 - 1.30 mg/dL [facility] Glucose 94 70 - 199 mg/dL [facility] Comment: Interpretive Data Fasting glucose >/= 126 [...] Calcium 9.4 8.5 - 10.3 mg/dL [facility] Bilirubin, total 0.3 0.1 - 1.2 mg/dL [facility] Protein, pl 6.9 6.5 - 8.5 g/dL [facility] Albumin 3.8 3.5 - 5.0 g/dL [facility] Alk phos 121 40 - 130 Units/L [facility] ALT 10 7 - 55 Units/L [facility] AST 16 10 - 50 Units/L [facility] Blood 08/28/2025 9:15 AM CDT 08/28/2025 9:21 AM CDT Stan Meza MD LAB BLOOD ORDERABLES Yolette banda Result [facility] One [facility] [place] [address] * eGFR (08/21/2025 9:19 AM CDT) eGFR >90 >=60 mL/min/1. 73 [...] [facility] [place] [address] * Differential, auto (08/21/2025 9:19 AM CDT) Neutrophil abs 3.36 1.50 - 6.50 K/cumm Comment:Testing performed by : [facility], [address] [place] [phone] Lymphocyte abs 0.99 0.80 - 3.30 K/cumm [facility] Comment:Testing performed by : [facility], [address] [place] [phone] Monocyte abs 0.68 0.20 - 0.80 K/cumm [facility] Comment:Testing performed by : [facility], [address] [place] [phone] Eosinophil abs 0.02 0.00 - 0.50 K/cumm [facility] Comment:Testing performed by : [facility], [address] [place] [phone] Basophil abs 0.08 0.00 - 0.10 K/cumm [facility] Comment:Testing performed by : [facility], [address] [place] [phone] Neutrophil pct 65.6 % [facility] Comment: Interpretive Data Percent cell count reference ranges are not reported, since discordance with absolute values may lead to misinterpretation of CBC data. Current Interpretive Data was last revised on 2018. Testing performed by: [facility], [address] [place] [phone] Lymphocyte pct 19.3 % [facility] Comment: Interpretive Data Percent cell count reference ranges are not reported, since discordance with absolute values may lead to misinterpretation of CBC data. Current Interpretive Data was last revised on 2018. Testing performed by: [facility], [address] [place], [place] [phone] Monocyte pct 13.3 % [facility] Comment: Interpretive Data Percent cell count reference ranges are not reported, since discordance with absolute values may lead to misinterpretation of CBC data. Current Interpretive Data was last revised on 2018. Testing performed by: [facility], [address] [place] [address] Eosinophil pct 0.4 % [facility] Comment: Interpretive Data Percent cell count reference ranges are not reported, since discordance with absolute values may lead to misinterpretation of CBC data. Current Interpretive Data was last revised on 2018. Testing performed by: [facility], [address] [place] [phone] Basophil pct 1.5 % [facility] Comment: Interpretive Data Percent cell count reference ranges are not reported, since discordance with absolute values may lead to misinterpretation of CBC data. Current Interpretive Data was last revised on 2018. Testing performed by: [facility], [address] [place] [phone] Blood 08/21/2025 9:19 AM CDT 08/21/2025 9:23 AM CDT us Stan Meza MD LAB BLOOD ORDERABLES Yolette banda Result [facility] [place] [address] * (ABNORMAL) CBC with auto differential (08/21/2025 9:19 AM CDT) WBC 5.13 3.80 - 9.90 K/cumm Comment:Testing performed by : [facility], [address] [place], [place] [phone] Hgb 10.7(L) 13.0 - 17.5 g/dL [facility]J Comment:Testing performed by : [facility], [address] [place], [place] [phone] Hct 33.5(L) 38.9 - 50.3 % [facility]J Comment:Testing performed by : [facility], [address] [place], [place] [phone] Plt 237 150 - 400 K/cumm [facility]J Comment:Testing performed by : [facility], [address] [place], [place] [phone] MPV 7.3 6.8 - 10.4 fL [facility]J Comment:Testing performed by : [facility], [address] [place] [address] RBC 3.99(L) 4.30 - 5.80 M/cumm [facility]J Comment:Testing performed by : [facility], [address] [place] [address] MCV 83.9 81.3 - 96.4 fL [facility] Comment:Testing performed by : [facility], [address] [place] [address] MCH 26.8(L) 27.1 - 33.3 pg [facility]J Comment:Testing performed by : [facility], [address] [place] [address] MCHC 31.9(L) 32.3 - 35.7 g/dL [facility] Comment:Testing performed by : [facility], [address] [place], [place] [phone] RDW CV 19.7(H) 11.1 - 14.9 % [facility]J Comment:Testing performed by : [facility], [address] [place] [address] NRBC abs 0.00 0.00 - 0.01 K/cumm [facility] Comment:Testing performed by : [facility], [address] [place] [phone] Blood 08/21/2025 9:19 AM CDT 08/21/2025 9:23 AM CDT Stan Meza MD LAB BLOOD ORDERABLES Yolette l Result [facility] [place] [address] * Phosphorus (08/21/2025 9:19 AM CDT) Pathologist [facility] Phosphorus, pl 2.7 2.3 - 4.5 mg/dL Blood 08/21/2025 9:19 AM CDT 08/21/2025 9:31 AM CDT Stan Meza MD LAB BLOOD ORDERABLES Yolette l Result Performing Organization Address City/[facility]/ZIP Co de Phone Number [facility] [place] [address] * Magnesium (08/21/2025 9:19 AM CDT) Pathologist [facility] Magnesium 1.8 1.4 - 2.5 mg/dL Blood 08/21/2025 9:19 AM CDT 08/21/2025 9:31 AM CDT Stan Meza MD LAB BLOOD ORDERAB[place] [address] * (ABNORMAL) Comprehensive metabolic panel (08/21/2025 9:19 AM CDT) Sodium 137 135 - 145 mmol/L Potassium, pl 4.0 3.3 - 4.9 mmol/L [facility] Chloride 104 97 - 110 mmol/L [facility] CO2 24 22 - 32 mmol/L [facility] Anion gap 9 2 - 15 mmol/L [facility] BUN 6 6 - 25 mg/dL [facility] Creatinine 0.62(L) 0.80 - 1.30 mg/dL [facility] Glucose 137 70 - 199 mg/dL [facility] Comment: Interpretive Data Fasting glucose >/= 126 [...] 2022. Calcium 8.9 8.5 - 10.3 mg/dL [facility] Bilirubin, total 0.6 0.1 - 1.2 mg/dL [facility] Protein, pl 6.8 6.5 - 8.5 g/dL [facility] Albumin 3.9 3.5 - 5.0 g/dL [facility] Alk phos 114 40 - 130 Units/L [facility] ALT 13 7 - 55 Units/L [facility] AST 18 10 - 50 Units/L [facility] Blood 08/21/2025 9:19 AM CDT 08/21/2025 9:31 AM CDT us Stan Meza MD LAB BLOOD ORDERABLES Yolette banda Result [facility] [place] [address] * CT Chest Abdomen Pelvis W Contrast [...] by: Rony Miranda M.D. Stan Meza MD IMG CT PROCEDURES Final R esult * eGFR [...] 7 AM CDT 07/31/2025 11:28 AM CDT Stan Meza MD LAB BLOOD ORDERABLES Yolette banda Result [facility] Department of Laboratories [place] [id number] * (ABNORMAL) Differential, auto (07/31/2025 11:17 AM CDT) Neutrophil abs 2.74 1.50 - 6.50 K/cumm Comment:Testing performed by : [facility], [address] [place] [address] Lymphocyte abs 1.32 0.80 - 3.30 K/cumm [facility] Comment:Testing performed by : [facility], [address] [place] [address] Monocyte abs 1.04(H) 0.20 - 0.80 K/cumm [facility] Comment:Testing performed by : [facility], [address] [place] [address] Eosinophil abs 0.19 0.00 - 0.50 K/cumm [facility] Comment:Testing performed by : [facility], [address] [place] [phone] Basophil abs 0.11(H) 0.00 - 0.10 K/cumm [facility] Comment:Testing performed by : [facility], [address] [place] [phone] Neutrophil pct 50.8 % [facility] Comment: Interpretive Data Percent cell count reference ranges are not reported, since discordance with absolute values may lead to misinterpretation of CBC data. Current Interpretive Data was last revised on 2018. Testing performed by: [facility], [address] [place] [phone] Lymphocyte pct 24.4 % [facility] Comment: Interpretive Data Percent cell count reference ranges are not reported, since discordance with absolute values may lead to misinterpretation of CBC data. Current Interpretive Data was last revised on 2018. Testing performed by: [facility], [address] [place] [address] Monocyte pct 19.3 % [facility] Comment: Interpretive Data Percent cell count reference ranges are not reported, since discordance with absolute values may lead to misinterpretation of CBC data. Current Interpretive Data was last revised on 2018. Testing performed by: [facility], [address] [place] [phone] Eosinophil pct 3.5 % [facility] Comment: Interpretive Data Percent cell count reference ranges are not reported, since discordance with absolute values may lead to misinterpretation of CBC data. Current Interpretive Data was last revised on 2018. Testing performed by: [facility], [address] [place] [phone] Basophil pct 2.0 % [facility] Comment: Interpretive Data Percent cell count reference ranges are not reported, since discordance with absolute values may lead to misinterpretation of CBC data. Current Interpretive Data was last revised on 2018. Testing performed by: [facility], [address] [place] [phone] Blood 07/31/2025 11:1 7 AM CDT 07/31/2025 11:22 AM CDT us Stan Meza MD LAB BLOOD ORDERABLES Yolette l Result [facility] [place] [address] * (ABNORMAL) CBC with auto differential (07/31/2025 11:17 AM CDT) WBC 5.40 3.80 - 9.90 K/cumm Comment:Testing performed by : [facility], [address] [place] [phone] Hgb 10.4(L) 13.0 - 17.5 g/dL [facility] Comment:Testing performed by : [facility], [address] [place] [phone] Hct 31.5(L) 38.9 - 50.3 % [facility] Comment:Testing performed by : [facility], [address] [place] [address] Plt 257 150 - 400 K/cumm [facility] Comment:Testing performed by : [facility], [address] [place] [address] MPV 6.9 6.8 - 10.4 fL [facility] Comment:Testing performed by : [facility], [address] [place], [place] [phone] RBC 3.97(L) 4.30 - 5.80 M/cumm [facility] Comment:Testing performed by : [facility], [address] [place], [place] [phone] MCV 79.5(L) 81.3 - 96.4 fL [facility] Comment:Testing performed by : [facility], [address] [place], [place] [phone] MCH 26.2(L) 27.1 - 33.3 pg [facility] Comment:Testing performed by : [facility], [address] [place] [address] MCHC 33.0 32.3 - 35.7 g/dL [facility] Comment:Testing performed by : [facility], [address] [place] [address] RDW CV 18.4(H) 11.1 - 14.9 % [facility] Comment:Testing performed by : [facility], [address] [place] [address] NRBC abs 0.00 0.00 - 0.01 K/cumm [facility] Comment:Testing performed by : [facility], [address] [place] [address] Blood 07/31/2025 11:1 7 AM CDT 07/31/2025 11:22 AM CDT us Stan Meza MD LAB BLOOD ORDERABLES Yolette l Result [facility] [place] [address] * (ABNORMAL) Comprehensive metabolic panel (07/31/2025 11:17 AM CDT) Sodium 138 135 - 145 mmol/L Potassium, pl 4.3 3.3 - 4.9 mmol/L [facility] Chloride 104 97 - 110 mmol/L [facility] CO2 25 22 - 32 mmol/L [facility] Anion gap 9 2 - 15 mmol/L [facility] BUN 5(L) 6 - 25 mg/dL [facility] Creatinine 0.68(L) 0.80 - 1.30 mg/dL [facility] Glucose 85 70 - 199 mg/dL [facility] Comment: Interpretive Data Fasting glucose >/= 126 [...] 2022. Calcium 9.2 8.5 - 10.3 mg/dL [facility] Bilirubin, total 0.6 0.1 - 1.2 mg/dL [facility] Protein, pl 6.6 6.5 - 8.5 g/dL [facility] Albumin 3.7 3.5 - 5.0 g/dL [facility] Alk phos 118 40 - 130 Units/L [facility] ALT 10 7 - 55 Units/L [facility] AST 16 10 - 50 Units/L [facility] Blood 07/31/2025 11:1 7 AM CDT 07/31/2025 11:28 AM CDT us Stan Meza MD LAB BLOOD ORDERABLES Yolette l Result [facility] [place] [address] * Hepatitis C antibody Blood (05/29/2025 12:49 PM CDT) Hep C Ab Nonreactive Nonreactive Comment:Antibodies to HCV no t detected. Does NOT exclude the possibility of recent exposure to HCV. Current interpretive data was last revised on 22 Blood 05/29/2025 12:4 9 PM CDT 05/29/2025 1:20 PM CDT us Stan Meza MD LAB MICROBIOLOGY - GENERA L ORDERABLES Final Result [facility] [place] [address] from Last 3 Months or Most Recently Relevant to Health Maintenance Insurance [facility] Advance Directives For more information, please contact: [phone] * Full Code (Latest Code Status on File) Date Activated Date Inactivated Comments 09/15/2025 9:04 AM 09/16/2025 5:26 AM Care Teams Traffic Monitor Specialist Relationship Specialty Start Date End Date Matthew Mccabe MD PCP - General Family Medicine 05/13/24 Stan Meza MD Medical Oncologist/Senior Planner Medical Oncology 06/28/24 [place] [address] [place] [address] [place] [address] Nurse Practitioner Family Practice 03/26/25
--- OUTSIDE RECORDS SUMMARY | 2025-10-24 13:16 | XMS_ITS | Encounter Summary ---
Author Organization [facility] Address [facility] [place] [address] Care Team Providers Care Seismograph Computer Name Role Phone Amilcar Osorio MD Primary Care Provider [phone] Monica Tellez NP Primary Care Provider [phone] Nataile Baum HAND IRONER Primary Care Provider + [phone] Encounter Details Date Type Department Care Team (Late st Contact Info) Description 07/03/2018 Abstract [facility] Medical Group Multispecialty Care - [facility] [address] [facility] [place] [address] Gina Fleming APNP [address] [place] [address] Social History Tobacco Use Types Packs/Day Years [...] on filedocumented in this encounter Care Teams Seismograph Computer Relationship Specialty Start Date End Date Amilcar Osorio MD [address] [facility], [address] [address] PCP - General 05/01/17 09/04/19 Monica Tellez NP [address] [place] [address] PCP - General NURSE PRACTITIONER 09/05/19 01/18/25 Natalie Baum NP [address] [place] [address] PCP - General FAMILY PRACTICE 01/19/25 documented as of this encounter
--- OUTSIDE RECORDS SUMMARY | 2025-10-24 13:16 | XMS_ITS | Encounter Summary ---
Author Organization [facility] Address [address] [address] Care Team Providers Care Clinical Registered Nurse Name Role Phone Ian Pollock MD Primary Care Provider [phone] Katina Casiano DO Unavailable [phone] Xavi ACOSTA MD, Fred R Primary Care Provider + Katina Casiano DO Unavailable [phone] Tracey Ang Unavailable Unavailable Belkis Angel REFERRAL MANAGEMENT LIAISON-TRAVEL ACCOMMODATIONS RATER Primary Care Provider + Natalie Baum Primary Care Provider [phone] Reason for Visit * Reason Onset Date Comments Cardiac Rehab 02/23/2022 Encounter Details Date Type Department Care Team (Late st Contact Info) Description 02/23/2022 Telephone [facility] [address] [place] [address] 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 Lagos 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 operator Social History Tobacco Use Types Packs/Day Years [...] on file 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 Gender Identity Not on file Sexual [...] filedocumented in this encounter Care Teams Clinical Registered Nurse Relationship Specialty Start Date End Date Ian Pollock MD [address] [facility] [place] [address] PCP - General 08/21/20 05/29/23 Jameel Hurley III, MD [address] [facility] [place] [address] PCP - General Internal Medicine 06/05/23 08/28/23 Belkis Angel APRN-TRAVEL ACCOMMODATIONS RATER [address] [facility] [address] [place] [address] PCP - General Nurse Practitioner 08/29/23 05/05/24 Natalie Baum [address] [place] [address] PCP - General 05/06/24 Katina Casiano DO [address] [facility] [place], [place] Resident - PCP Internal Medicine 08/10/22 05/29/23 Katina Casiano DO [address] [facility] [place], [place] Hospitalist 06/05/23 Tracey Ang PA [address] [facility] [place] [address] Physician Pre K Special Education Teacher 08/15/23 documented as of this encounter
--- OUTSIDE RECORDS SUMMARY | 2025-10-24 13:16 | XMS_ITS | Encounter Summary ---
Author Organization [facility] Address [facility] [place] [address] Care Team Providers Care Electronic Systems Technician Name Role Phone Amilcar Osorio MD Primary Care Provider [phone] Monica Tellez NP Primary Care Provider [phone] Natalie Baum PRINTING MACHINIST Primary Care Provider + [phone] Encounter Details Date Type Department Care Team (Late st Contact Info) Description 04/02/2018 Hosp Visit [facility] Outpatient Therapy [facility] [address] [place], [place] [address] Grecia Hess, [place] [address] Social History Tobacco Use Types Packs/Day Years [...] on filedocumented in this encounter Care Teams Electronic Systems Technician Relationship Specialty Start Date End Date Amilcar Osorio MD [address], [address] [address] PCP - General 05/01/17 09/04/19 Monica Tellez PRINTING MACHINIST [address] [address] PCP - General NURSE PRACTITIONER 09/05/19 01/18/25 Natalie Baum NP [address] [place] [address] PCP - General FAMILY PRACTICE 01/19/25 documented as of this encounter
--- OUTSIDE RECORDS SUMMARY | 2025-10-24 13:16 | XMS_ITS | Clinical Summary ---
Author Organization [facility] Address [address] [facility] [place] [address] Care Team Providers Care Foundry Worker Apprentice Name Role Phone Katina Casiano DO Unavailable [phone] Tracey Ang PA Unavailable Unavailable Natalie Baum Primary Care Provider [phone] Source Comments [facility],non-owned Affiliates and Associated Physician Practices is amultiple site organization consisting of ambulatory clinics and hospital sitesin [place], [place], [place] and [place]. This disclosure is being madepursuant to the Care Everywhere program and may not contain all information available regarding this patient. Last updated 18.[facility] Allergies Active Allergy Reactions Criticality Noted Date [...] MG/3ML) 0.083% nebulizer solutionIndicati ons:Centrilobula r emphysema (HCC),Asthma-AUTO DAMAGE TRAINEE D overlap syndrome (HCC) Inhale 2.5 (two [...] Active Symbicort 160-4.5 MCG/ACT inhalerIndicatio ns:Centrilobular emphysema (HCC),Asthma-AUTO DAMAGE TRAINEE D overlap syndrome (HCC) Inhale 2 (two) puffs by mouth once daily 10.2 g 3 3 Active albuterol HFA (Proventil; Ventolin; Proair) 108 (90 Base) MCG/ACT inhalerIndicatio ns:Centrilobular emphysema (HCC),Asthma-AUTO DAMAGE TRAINEE D overlap syndrome (HCC) Inhale 2 (two) [...] 01/04/2023 Assessment & Plan (01/04/2023 2:27 PM BILLBOARD MECHANIC): - sleep study pending Fatigue 01/04/2023 Assessment & Plan (01/04/2023 2:28 PM BILLBOARD MECHANIC): - Check TSH - pending sleep study [...] 07/29/2022 Assessment & Plan (01/04/2023 2:26 PM BILLBOARD MECHANIC): - Due for TDap, Zoster, Covid outside [...] 07/29/2022 Assessment & Plan (01/04/2023 2:19 PM BILLBOARD MECHANIC): - Will try to resend Eplerenone, previously [...] 01/05/2022 Assessment & Plan (01/04/2023 2:26 PM BILLBOARD MECHANIC): - Likely sleep-related, obesity, SHAYEN - Cont. PPI Sleep choking syndrome 01/05/2022 PND (paroxysmal nocturnal dyspnea) 01/05/2022 Bipolar affective disorder 12/24/2021 Back pain 12/24/2021 Family history of other specified conditions Asthma-COPD overlap syndrome 11/11/2021 Assessment & Plan (01/04/2023 2:18 PM BILLBOARD MECHANIC): - Tob cessation Chronic midline low back pain without sciatica 0 11/09/2021 Lumbosacral disc disease 11/09/2021 Foraminal stenosis of lumbar region 11/09/2021 Heart failure with reduced ejection fraction 09/2021 Assessment & Plan (05/30/2023 3:04 PM CDT): HF with EF recovered to normal. Continue current treatment. 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 Procedure Code(s): --- Professional --- 67088, Colonoscopy, flexible; with removal of tumor(s), polyp(s), or other lesion(s) by snare technique Diagnosis Code(s): --- Professional --- Z86.010, Personal history of colonic polyps K63.5, Polyp of colon Z80.0, Family history of malignant neoplasm of digestive organs CPT copyright 2019 [employer] [employer]. All rights reserved. The codes documented in this report are preliminary and upon patrol mother review may be revised to meet current compliance requirements. Tal Mccormick, 12/07/2022 10:49:20 AM Note Initiated On: 12/07/2022 10:04 AM Number of Addenda: [phone] PROVATION 12/07/2022 10:0 4 AM BILLBOARD MECHANIC [facility] Tal Mccormick MD GI PROCEDURE O RDERABLES Edited Result - Final [facility] PROVATION * (ABNORMAL) COMPREHENSIVE METABOLIC PANEL [...] 46 U/L [facility] Comment: Test Performed at: [facility] [address] [place] [address] PRUDENCIO ALDANA DO,MPH Blood BLOOD SPECIMEN / Unknown 08/09/2022 1:47 PM CDT 08/09/2022 1:50 PM CDT Ian Pollock MD LAB - CHEMISTRY ORDERABLES Fin al Result [place] [id number] [place] [address] * HEPATITIS C AB W/RFLX TO HCV RNA QN PCR (09/19/2019 9:17 AM BILLBOARD MECHANIC) Hepatitis C Antibody NON-REACTI VE NON-REACT FELY [facility] Signal to Cut-Off 0.03 <1.00 [facility] Comment: HCV antibody was non-reactive. There is no laboratory evidence of HCV infection. In most cases, no further action is required. However, if recent HCV exposure is suspected, a test for HCV RNA (test code 92419) is suggested. For additional information please refer to http://education.[employer]/faq/SPB26u3 (This link is being provided for informational/ educational purposes only.) Test Performed at: [facility] [address] [place] [address] PRUDENCIO ALDANA DO,MPH 09/19/2019 9:17 AM BILLBOARD MECHANIC 09/19/2019 9:21 AM BILLBOARD MECHANIC Monica Tellez SPACE AND MISSI[employer]PERATIONS-GAS METER REPAIR SUPERVISOR LAB - CHEMISTRY ORD ERABLES Final Result [facility] [id number] [place] [address] from Last 3 Months or Most Recently Relevant to Health Maintenance Insurance [facility] Advance Directives Documents on File Type Date Recorded 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
--- OUTSIDE RECORDS SUMMARY | 2025-10-24 13:16 | XMS_ITS | Encounter Summary ---
Author Organization [facility] Address [facility] [place] [address] Care Team Providers Care Search Consultant Name Role Phone Amilcar Osorio MD Primary Care Provider [phone] Monica Tellez NP Primary Care Provider [phone] Natalie Baum FISHER TRAP Primary Care Provider + [phone] Encounter Details Date Type Department Care Team (Late st Contact Info) Description 04/09/2018 Hosp Visit [facility] Outpatient Therapy [facility] [address] [place], [place] [address] Grecia Hess, [place] [address] Social History Tobacco Use Types Packs/Day Years [...] on filedocumented in this encounter Care Teams Search Consultant Relationship Specialty Start Date End Date Amilcar Osorio MD [address], [address] [address] PCP - General 05/01/17 09/04/19 Monica Tellez FISHER TRAP [address] [address] PCP - General NURSE PRACTITIONER 09/05/19 01/18/25 Natalie Baum NP [address] [place] [address] PCP - General FAMILY PRACTICE 01/19/25 documented as of this encounter
--- OUTSIDE RECORDS SUMMARY | 2025-10-24 13:16 | XMS_ITS ---
Author Organization [facility] Address [address] [place] [address] Care Team Providers Care Payroll Officer Name Role Phone Matthew Mccabe MD Primary Care Prov ider Stan Meza MD Unavailable Natalie Baum NP Unavailable [phone] Active Problems Problem Noted Date Diagnosed Date Nicotine dependence with current use 09/18/2025 Hypokalemia 11/14/2024 Metastasis to bone 11/06/2024 Cancer related pain 08/15/2024 Prophylaxis for chemotherapy-induced neutropenia 08/01/2024 Primary cancer of left lower lobe of lung 2023 Cancer Staging:Clinical:Stage IVB(pM1c) - Unsigned Localized enlarged lymph nodes 05/28/2024 Hilar mass 05/28/2024 Current Treatment and Therapy Plans GemCITabine (D1, D8) 21 Day Cycles - Non-Small Cell Lung* Plan Start Date: 10/30/2025 Plan Provider:Stan Meza MD Linked Problems Metastasis to bonePrimary ca ncer of left lower lobe of lung (HCC)Prophylaxis for chemotherapy-induced neutropenia Treatment Medications Current Day (Day 1 , Cycle 1 - Planned for 10/31/2025) Next Day (Day 8, Cycle 1 - Planned for 11/07/2025) gemcitabine (GEMZAR) gemcitabine (GEMZAR - J9201) 2,000 mg in sodium chloride 0.9% 250 mL IVPB gemcitabine (GEMZAR - J9201) 2,000 mg in sodium chloride 0.9% 250 mL IVPB Hydration Therapy Plan* Plan [...] Treatment Medications Discontinue Reason Plan Provider Cycles DOCEtaxel 21 Day Cycles - Non-Small Cell Lung 07/10/20 25 10/09/2025 dexAMETHasone (DECADRON)DOCEtax el (TAXOTERE)DOCEtax el (TAXOTERE) IVPB in 250 mL (vial 20mg/mL) Progression Victoriano rn, MD Stan 4 of 6 cycles started [id number] [facility] - Phase 1 - VAISHALI-PEG 20 / Docetaxel / Gemcitabine 5 07/03/2025 DOCEtaxel (TAXOTERE)gemcita bine (GEMZAR)INV-[facility] VAISHALI-PEG 20 ( [id number]) Patient Preference Karin Zaman, FINANCIAL SERVICES REPRESENTATIVE 1 of 6 cycles started Pembrolizumab / [...] 21 day cycles - Non-Small Cell Lung 024 08/20/2024 CARBOplatin (PARAPLATIN)pembr olizumab (KEYTRUDA)PEMEtre xed (ALIMTA) [...] 2 mGy 2 mGy 0 mGy DLP 5,506.9 mGycm 5,506.9 mGycm 0 mGycm
--- OUTSIDE RECORDS SUMMARY | 2025-10-24 13:16 | XMS_ITS | Encounter Summary ---
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 Gender Identity Not on file Sexual Orientation Not on file documented as of this encounter Plan of Treatment Not on file documented as of this encounter Visit Diagnoses Not on filedocumented in this encounter Additional Health Concerns Infection Onset Date Last Indicated Resolved Time COVID: Suspected 08/29/2024 08/29/2024 08/29/2024 1:59 PM CDT documented as of this encounter Care Teams Director Of Women'S Services Relationship Specialty Start Date End Date Matthew Mccabe MD PCP - General Family Medicine 05/13/24 Stan Meza MD Medical Oncologist/Litigation Services Manager Medical Oncology 06/28/24 Natalie Baum NP [address] [place] [address] Nurse Practitioner Family Practice 03/26/25 documented as of this encounter
--- OUTSIDE RECORDS SUMMARY | 2025-10-24 13:16 | XMS_ITS | Encounter Summary ---
Author Organization [facility] Address [facility] [place] [address] Care Team Providers Care Welder Apprentice Arc Name Role Phone Amilcar Osorio MD Primary Care Provider [phone] Monica Tellez NP Primary Care Provider [phone] Natalie Baum FIELD INSTALLER Primary Care Provider + [phone] Encounter Details Date Type Department Care Team (Late st Contact Info) Description 04/09/2018 Hosp Visit [facility] Outpatient Therapy [facility] [address] [place], [place] [address] Grecia Hess, [place] [address] Social History Tobacco Use Types Packs/Day Years [...] filedocumented in this encounter Care Teams Welder Apprentice Arc Relationship Specialty Start Date End Date Amilcar Osorio MD [address], [address] [address] PCP - General 05/01/17 09/04/19 Monica Tellez FIELD INSTALLER [address] [address] PCP - General NURSE PRACTITIONER 09/05/19 01/18/25 Natalie Baum NP [address] [place] [address] PCP - General FAMILY PRACTICE 01/19/25 documented as of this encounter
--- OUTSIDE RECORDS SUMMARY | 2025-10-24 13:16 | XMS_ITS | Encounter Summary ---
Author Organization [facility] Address [facility] [place] [address] Care Team Providers Care Paper Box Cutter Name Role Phone Amilcar Osorio MD Primary Care Provider [phone] Monica Tellez NP Primary Care Provider [phone] Natalie Baum CHIROPRACTIC DOCTOR Primary Care Provider + [phone] Encounter Details Date Type Department Care Team (Late st Contact Info) Description 04/16/2018 Hosp Visit [facility] Outpatient Therapy [facility] [address] [place], [place] [address] [place]recia Hess, [place] [address] Social History Tobacco Use Types Packs/Day Years [...] filedocumented in this encounter Care Teams Paper Box Cutter Relationship Specialty Start Date End Date Amilcar Osorio MD [address], [address] [address] PCP - General 05/01/17 09/04/19 Monica Tellez CHIROPRACTIC DOCTOR [address] [address] PCP - General NURSE PRACTITIONER 09/05/19 01/18/25 Natalie Baum NP [address] [place] [address] PCP - General FAMILY PRACTICE 01/19/25 documented as of this encounter
--- OUTSIDE RECORDS SUMMARY | 2025-10-24 13:16 | XMS_ITS | Encounter Summary ---
Author Organization [facility] Address [address] [place] [address] Care Team Providers Care Interactive Media Project Manager Name Role Phone Ian Pollock MD Primary Care Provider [phone] Katina Casiano DO Unavailable [phone] Xavi ACOSTA MD, Jameel R Primary Care Provider + Katina Casiano DO Unavailable [phone] Tracey Ang PA Unavailable Unavailable Belkis Angel PROFESSOR OF SPANISH-CHOCOLATE PACKER Primary Care Provider + Natalie Baum Primary Care Provider [phone] Encounter Details Date Type Department Care Team (Late st Contact Info) Description 02/18/2022 Telephone [facility] Pulmonary, Critical Care and Sleep Medicine [address] [place] [id number] Agnieszka Haas MD [address] [place] [address] Social History Tobacco Use Types Packs/Day Years [...] on file 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 Patient Call Back number: [phone] documented in this encounter Plan of Treatment [...] on filedocumented in this encounter Care Teams Interactive Media Project Manager Relationship Specialty Start Date End Date Ian Pollock MD [address] DIV OF [place] [address] PCP - General 08/21/20 05/29/23 Jameel Hurley III, MD [address] DIV OF [facility] [place] [id number] PCP - General Internal Medicine 06/05/23 08/28/23 Belkis Angel, PROFESSOR OF SPANISH-CHOCOLATE PACKER [address] [phone] PCP - General Nurse Practitioner 08/29/23 05/05/24 Natalie Baum [address] [place] [address] PCP - General 05/06/24 Katina Casiano DO [address] DIV OF [facility] INTERNAL MEDIC[facility] [place] Resident - PCP Internal Medicine 08/10/22 05/29/23 Katina Casiano DO [address] DIV OF [facility] INTER[facility]IC[facility] [place] Hospitalist 06/05/23 Tracey Ang PA [address] DIV OF [facility] [place] [address] Physician Key Holder 08/15/23 documented as of this encounter
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
--- OUTSIDE RECORDS SUMMARY | 2025-10-24 13:17 | XMS_ITS | Encounter Summary ---
Author Organization [facility] Address [address] [place] [address] Care Team Providers Care Pay Clerk Name Role Phone Monica Tellez WHEEL CLEANER-SLUBBER TENDER Primary Care Provi cristobal Ian Pollock MD Primary Care Provider [phone] Ian Pollock MD Primary Care Provider [phone] Ian Pollock MD Primary Care Provider [phone] Ian Pollock MD Primary Care Provider [phone] Ian Pollock MD Primary Care Provider [phone] Katina Casiano DO Unavailable [phone] Xavi ACOSTA MD, Fred R Primary Care Provider + Katina Casiano DO Unavailable [phone] Tracey Ang Unavailable Unavailable Belkis Angel WHEEL CLEANER-SLUBBER TENDER Primary Care Provider + Natalie Baum Primary Care Provider [phone] Reason for Visit * Reason Onset Date Comments Appointment 09/11/2019 Encounter Details Date Type Department Care Team (Late st Contact Info) Description 09/11/2019 Telephone [facility] [address] [address] Monica Tellez, WHEEL CLEANER-SLUBBER TENDER [address] [facility] [place] [address] Appointment Social History Tobacco Use Types Packs/Day [...] on file 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 [employer] Gender Identity Not on file Sexual Orientation [...] Called again warm transfer to scheduling GER [employer] documented in this encounter Plan of Treatment [...] on filedocumented in this encounter Care Teams Pay Clerk Relationship Specialty Start Date End Date Monica Tellez, WHEEL CLEANER-SLUBBER TENDER PCP - General 07/03/19 11/13/19 Ian Pollock MD PCP - General 11/14/19 12/12/19 Ian Pollock MD PCP - General 12/13/19 05/25/20 Ian Pollock MD PCP - General 05/26/20 06/15/20 Ian Pollock MD [address] [facility] [place] [address] PCP - General 07/31/20 08/20/20 Ian Pollock MD [address] [facility] [address] [facility] [place] [address] PCP - General 08/21/20 05/29/23 Jameel Hurley III, MD [address] [facility] [place] [address] PCP - General Internal Medicine 06/05/23 08/28/23 Belkis Angel, WHEEL CLEANER-SLUBBER TENDER [address] [facility] [address] [place] [address] PCP - General Nurse Practitioner 08/29/23 05/05/24 Natalie Baum [address] [place] [address] PCP - General 05/06/24 Katina Casiano DO [address] [facility] INTER[facility]IC[place] Resident - PCP Internal Medicine 08/10/22 05/29/23 Katina Casiano DO [address] [facility] [place] Hospitalist 06/05/23 Tracey Ang PA [address] [facility] [place] [address] Physician Director Of Market Intelligence 08/15/23 documented as of this encounter
--- OUTSIDE RECORDS SUMMARY | 2025-10-24 13:17 | XMS_ITS | Clinical Summary ---
Author Organization [facility] Address [address], [facility] [address] [place] [address] Phone Care Team Providers Care Yard Person Name Role Phone Patito Randalli [place] REAL ESTATE AGENT/BROKER, BOILERMAKER [employer] Unavailable Allergies Active Allergy Reactions Criticality Noted [...] Comments Blood Pressure 142/74 11/06/2017 2:41 PM POTTERY DECORATION DESIGNER Pulse 77 11/06/2017 2:41 PM POTTERY DECORATION DESIGNER Temperature 36.1 C (97 F) 11/06/2017 2:41 PM POTTERY DECORATION DESIGNER Respiratory Rate 18 11/06/2017 2:41 PM POTTERY DECORATION DESIGNER Oxygen Saturation 99% 11/06/2017 8:00 AM POTTERY DECORATION DESIGNER Inhaled Oxygen Concentration - - Weight 113.4 kg (250 lb) 11/03/2017 6:25 PM POTTERY DECORATION DESIGNER Height 175.3 cm (5' 9) 11/03/2017 6:25 PM POTTERY DECORATION DESIGNER Body Mass Index 36.92 11/03/2017 6:25 PM POTTERY DECORATION DESIGNER Plan of Treatment Health Maintenance Due Date [...] complete this topic Human Papillomavirus (HPV) Immunization (No Doses Required) Completed Meningococcal Immunization (ACWY) Aged Out No longer eligible based on patient's age to complete this topic Rotavirus Immunization Aged Out No lo nger eligible based on patient's age to complete this topic Procedures Procedure Name Priority Date/Time Associated Diagnosis Comments CT CHEST W/O CONTRAST STAT 11/03/2017 11:30 PM POTTERY DECORATION DESIGNER from Last 3 Months or Most Recently Relevant to Health Maintenance Results * CT CHEST W/O CONTRAST (11/03/2017 11:30 PM POTTERY DECORATION DESIGNER) Anatomical Region Laterality Modality Chest N/A Computed Tomogra phy 11/04/2017 12:2 4 AM POTTERY DECORATION DESIGNER Impressions 11/04/2017 12:28 AM POTTERY DECORATION DESIGNER IMPRESSION: 1. A few nonspecific scattered ground-glass infiltrates in the bilateral upper lobes, which may represent pneumonia. 2. Mild paraseptal emphysema. Automated exposure control was used as a dose optimization technique for this examination. Narrative 11/04/2017 12:28 AM POTTERY DECORATION DESIGNER EXAMINATION: CT chest without contrast HISTORY: Cough, [...] a dose optimization technique for this examination. us Dave Howe MD IMG CT ORDERABLES Final Resul t from Last 3 Months or Most Recently Relevant to Health Maintenance Insurance [address] [place] [id number] Advance Directives * Full Code (Latest Code Status on File) Date Activated Date Inactivated Comments 11/04/2017 9:36 AM 11/06/2017 6:27 PM CPR-Full Treat ment: FULL ARREST: Attempt Resuscitation/CPR wit intubation and mechanical ventilation. PRE-ARREST: Use entire range of life support measures to stabilize the patient. Care Teams Yard Person Relationship Specialty Start Date End Date Montserrat Randall, REAL ESTATE AGENT/BROKER, BOILERMAKER [employer] Nurse Practitioner Advanced Practice Nurse 10/21/16
--- OUTSIDE RECORDS SUMMARY | 2025-10-24 13:17 | XMS_ITS | Encounter Summary ---
Author Organization [facility] Address [address] [place] [address] Care Team Providers Care Coagulating Operator Name Role Phone Ian Pollock MD Primary Care Provider [phone] Ian Pollock MD Primary Care Provider [phone] Ian Pollock MD Primary Care Provider [phone] Ian Pollock MD Primary Care Provider [phone] Katina Casiano DO Unavailable [phone] Xavi ACOSTA MD, Fred R Primary Care Provider + Katina Casiano DO Unavailable [phone] Tracey Ang PA Unavailable Unavailable Belkis Angel CRM SYSTEM ADMINISTRATOR-CLINIC OFFICE ASSISTANT Primary Care Provider + Natalie Baum Primary Care Provider [phone] Reason for Visit * Reason Onset Date Comments Referral 12/13/2019 Encounter Details Date Type Department Care Team (Late st Contact Info) Description 12/13/2019 Telephone [facility] [address] [place] [address] Monica Tellez, CRM SYSTEM ADMINISTRATOR-CLINIC OFFICE ASSISTANT [address] [place] [address] Referral Social History Tobacco Use [...] on file 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 BUSINESS ANALYTICS MANAGER Gender Identity Not on file [...] Janice Conn RN - 12/19/2019 8:51 AM BUSINESS ANALYTICS MANAGER Was able to speak with patient regarding his directive to call his insurance company for them to give him a listing of the Cardiologists in [place], and also tell him that he would be given to another PCP because Dr. Pollock will be going to very part-time in March, but patient apprised this TNs thathe had called for a more current appointment, and is to see Dr. Pollock today. NESS ANALYTICS MANAGER * Telephone Encounter - Monica Tellez APRN-CNP - 12/16/2019 4:30 PM BUSINESS ANALYTICS MANAGER Do not know any content coordinator on [facility]. He will need to call his insurance company for list of [place] content coordinator. His appt was to be changed from Dr Pollock to a resident since Dr Pollock will be going to very partition making machine operator in March and should not have new patients. MARISOL Díaz NESS ANALYTICS MANAGER * Telephone Encounter - Janice Conn RN - 12/13/2019 10:45 AM BUSINESS ANALYTICS MANAGER Routing message to Dr Pollock NESS ANALYTICS MANAGER * Telephone Encounter - Meenu Hidalgo - 12/13/2019 10:36 AM CST PT is calling and wanting to be referred to a content coordinator on the [facility]. PT stats it wouldbe more convenient and easier for the med cab. PT [phone] NESS ANALYTICS MANAGER documented in this encounter Plan of [...] on filedocumented in this encounter Care Teams Coagulating Operator Relationship Specialty Start Date End Date Ian Pollock MD PCP - General 12/13/19 05/25/20 Ian Pollock MD PCP - General 05/26/20 06/15/20 Ian Pollock MD [address] [place] [address] PCP - General 07/31/20 08/20/20 Ian Pollock MD [address] DIV OF [facility] [place] [address] PCP - General 08/21/20 05/29/23 Jameel Hurley III, MD [address] DIV OF [facility] [place] [phone] PCP - General Internal Medicine 06/05/23 08/28/23 Belkis Angel, CRM SYSTEM ADMINISTRATOR-CLINIC OFFICE ASSISTANT [address] [place] [phone] PCP - General Nurse Practitioner 08/29/23 05/05/24 Natalie Baum [address] [place] [address] PCP - General 05/06/24 Katina Casiano DO [address] DIV OF [facility] INTERNAL MEDICINE [place], [place] Resident - PCP Internal Medicine 08/10/22 05/29/23 Katina Casiano DO [address] DIV OF [facility] INTER[facility]IC[facility] [place], [place] Hospitalist 06/05/23 Tracey Ang PA [address] DIV OF [facility] [place] [address] Physician Primary Counselor 08/15/23 documented as of this encounter
--- OUTSIDE RECORDS SUMMARY | 2025-10-24 13:17 | XMS_ITS | Encounter Summary ---
Author Organization [facility] Address [address] [facility] [address] [place] [address] Care Team Providers Care Commissioned Fire Officer Name Role Phone Monica Tellez DIRECTOR OF MATERIALS-DEXTRINE MIXER Primary Care Provi cristobal Ian Pollock MD Primary Care Provider [phone] Ian Pollock MD Primary Care Provider [phone] Ian Pollock MD Primary Care Provider [phone] Ian Pollock MD Primary Care Provider [phone] Ian Pollock MD Primary Care Provider [phone] Katina Casiano DO Unavailable [phone] Xavi ACOSTA MD, Fred R Primary Care Provider + Katina Casiano DO Unavailable [phone] Tracey Ang Unavailable Unavailable Belkis Angel DIRECTOR OF MATERIALS-DEXTRINE MIXER Primary Care Provider + Natalie Baum Primary Care Provider [phone] Reason for Visit * Reason Onset Date Comments General 11/12/2019 Encounter Details Date Type Department Care Team (Late st Contact Info) Description 11/12/2019 Telephone [facility] [address] [place] [address] Monica Tellez, DIRECTOR OF MATERIALS-DEXTRINE MIXER [address] [facility] [place] [address] General Social History Tobacco Use Types Packs/Day [...] on file 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 MARKETING 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 He was upset that I told him to ask his pulmonary doctor to order low dose CT since pulmonary was the one who usually ordered this. MARISOL Díaz ETING CONTENT MANAGER * Telephone Encounter - Nadeem Hancock - 11/12/2019 1:07 PM CST Pt called to request to be released from the provider's care. Caller stated that the provider has done a couple of things to rub him the wrong way, and he would like another provider. Pt provided call back number [phone] Message routed to provider for review and assistance ETING CONTENT MANAGER documented in this encounter Plan of [...] on filedocumented in this encounter Care Teams Commissioned Fire Officer Relationship Specialty Start Date End Date Monica Tellez APRN-DEXTRINE MIXER PCP - General 07/03/19 11/13/19 Ian Pollock MD PCP - General 11/14/19 12/12/19 Ian Pollock MD PCP - General 12/13/19 05/25/20 Ian Pollock MD PCP - General 05/26/20 06/15/20 Ian Pollock MD [address] [place] [address] PCP - General 07/31/20 08/20/20 Ian Pollock MD [address] [place] [address] PCP - General 08/21/20 05/29/23 Jameel Hurley III, MD [address] DIV OF [facility] [place] [place] [phone] PCP - General Internal Medicine 06/05/23 08/28/23 Belkis Angel, DIRECTOR OF MATERIALS-DEXTRINE MIXER [address] [phone] PCP - General Nurse Practitioner 08/29/23 05/05/24 Natalie Baum [address] [place] [address] PCP - General 05/06/24 Katina Casiano DO [address] DIV OF [facility] INTERNAL MEDICINE [place] Resident - PCP Internal Medicine 08/10/22 05/29/23 Katina Casiano DO [address] DIV OF [facility] INTERNAL MEDICINE [place], [place] Hospitalist 06/05/23 Tracey Ang PA [address] DIV OF [facility] [place] [address] Physician Ship Joiner 08/15/23 documented as of this encounter
--- OUTSIDE RECORDS SUMMARY | 2025-10-24 13:17 | XMS_ITS | Data Portability ---
Author Organization [place] - [facility], Main Office Address [address] [place] [address] Assessment Encounter Date Assessment Date Assessment LastModified by Organization Details LastModified Time 02/06/2025 02/06/2025 This note is dictated and transcribed by [employer]. Architectural Superintendent variances may occur. Despite proofreading, typographical errors may occur. Occasional wrong-word or 'ygzgo-d-bplu' substitutions may have occurred due to the inherent limitations of voice recording. Read the chart carefully and recognize, using context, where substitutions have occurred. Not available 02/06/2025 09:27:31 03/27/2025 03/27/2025 This note is dictated and transcribed by [employer]. Architectural Superintendent variances may occur. Despite proofreading, typographical errors may occur. Occasional wrong-word or 'hrilw-h-ynqc' substitutions may have occurred due to the inherent limitations of voice recording. Read the chart carefully and recognize, using context, where substitutions have occurred. Not available 03/27/2025 15:54:31 04/29/2025 04/29/2025 This note is dictated and transcribed by [employer]. Architectural Superintendent variances may occur. Despite proofreading, typographical errors may occur. Occasional wrong-word or 'hjnvd-p-nrja' substitutions may have occurred due to the inherent limitations of voice recording. Read the chart carefully and recognize, using context, where substitutions have occurred. Not available 04/29/2025 11:11:46 Plan of Treatment Reminders Order Date Submit Date Provider Last Modified By Organization Details Last Modified Time Details Appointments None recorded. Lab None recorded. Referral None recorded. Procedures None recorded. Surgeries None recorded. Imaging US, duplex, arterial, lower extremity 2024 025 [facility] (Radiology), [address] [place], [address], 15:25:48 Medication Orders None recorded. Patient TargetsNo targets recorded. Patient Instructions Encounter Date Encounter Id Patient Instructions Last Modified By Organization Details Last Modified Time 02/06/2025 [id number] (LYNNETTE) ankle brachial index* - both sides lower legs [email or web address] Not available 02/25/2025 15:26:58 Reason for Referral None Reported. Results Created Date Observation Date Name Description Value Unit Range Abnormal Flag Note LastModifiedBy Organization Detail LastModifiedTime 02/26/2002/24/2025 US, duple x, arter ial, lower extre mity No observ ation record ed. [email or web address] (Radiology) [address] [place], [address], 02/25/2025 18:10:38 Result Notes None recorded. Problems Name Problem SNOMED Code Status Onset Date Resolution Date Notes Provider Name and Address Organization Details Recorded Time Bilateral ingrowing nail of toe of feet 8900251518876 9102 Active 2024 David Nguyen DPM [address], [place], [address], [employer] 5 09:27:38 Peripheral arterial occlusive disease 934813781 Active 2024 David Nguyen DPM [address], [place], [address], [facility] 5 09:28:05 Pain in toe 581446558 Active 2024 David Nguyen DPM [address], [address], [place], [address], [facility] 5 09:28:35 Cigarette smoker 18384385 Active 2024 David Nguyen DPM [address], [address], [place], [address], [facility] 5 09:29:18 Dystrophia unguium 03207123 Active 2024 David Nguyen DPM [address], [place], [address], [employer] [facility] 5 11:12:02 Problem Notes None recorded. Procedures Surgical History Date Name Laterality Status Provider Name and Address Organization Details Recorded Time 5 Nail Debridement completed David Nguyen DPM [address], [place], [address], [employer] [facility] 04/29/2025 11:11:37 5 Partial Nail Avulsion Chemical Matrixectomy-Ri ght completed David Nguyen DPM [address], [place], [address], [employer] [facility] 03/27/2025 15:54:16 5 Partial Nail Avulsion Chemical Matrixectomy-Le ft completed David Nguyen DPM [address], [place], [address], [employer] [facility] 03/27/2025 15:53:53 Hand completed Kelsey Gay [employer] [facility] [employer] [facility] 02/06/2025 09:38:07 Knee Surgery completed Kelsey Gay [employer] [facility] [employer] [facility] 02/06/2025 09:38:15 Imaging Results None recorded. [...] 1 CAPSULE BY MOUTH TWICE A DAY WITH FOOD active Not Available Not Available No t [...] Not Available Not Available No t Available finasteride 5 mg tablet TAKE 1 TABLET BY MOUTH EVERY DAY active Not Available Not Available No t Available oxycodone 5 mg tablet TAKE 1 TO 2 TABLETS (5-10 MG TOTAL) BY MOUTH EVERY 4 HOURS NEEDED FOR PAIN active Not Available Not Available No t Available hydroxyzine pamoate 25 mg capsule TAKE 1 CAPSULE BY MOUTH THREE TIMES A DAY NEEDED active Not Available Not Available No t [...] bromide 18 mcg capsule with inhalation device INHALE CONTENTS OF 1 CAP DAILY FOR 30 DAYS. PUNCTURE CAP WITH DEVICE, ONE DOSE= 2 INHALATIONS active Not Available Not Available Not Available mirtazapine 7.5 mg tablet TAKE 1 [...] Recorded Heart rate Respiratory rate Oxygen saturation Body height Body mass index (BMI) Body weight Systolic And Diastolic Provider Name and Address Organization Details Last Updated DateTime 5 79 /min 14 /min 98 % 175.26 cm 28.8 kg/m2 99739.5 1 g 148/95 mm[Hg] Kelsey Gay [facility] [employer] [facility] 09:12:43 Date Recorded Body height Body mass index (BMI) Body weight Heart rate Respiratory rate Oxygen saturation Systolic And Diastolic Provider Name and Address Organization Details Last Updated DateTime 175.26 cm 28.8 kg/m2 62709.5 1 g 99 /min 14 /min 98 % 90/61 mm[Hg] Kelsey Gay [facility] [employer] [facility] 14:08:36 Date Recorded Body height Body mass index (BMI) Body weight Heart rate Oxygen saturation Body temperature Systolic And Diastolic Provider Name and Address Organization Details Last Updated DateTime 175.26 cm 28.8 kg/m2 62907.5 1 g 85 /min 94 % 98.1 [degF] 114/80 mm[Hg] ALFONZO Mayorga [facility] [employer] [facility] 10:35:33 Social History Question Answer Notes LastModified by [employer] Details LastModified Time Tobacco Smoking Status Current Every Day Smoker Kelsey Gay [facility] [employer] [facility] 02/06/2025 09:37:54 What Is Your Level Of Caffeine Consumption? Occasional Information not available 02/06/2025 What Was The Date Of Your Most Recent Tobacco Screening? 04/29/2025 [email or web address] Information not available 04/29/2025 Has Tobacco Cessation Counseling Been Provided? No Information not available 02/06/2025 Sex: Unknown Functional Status Question Answer Note LastModified by [employer] Details LastModified Time Do you use any [...] Diagnosis SNOMED-CT Code Diagnosis ICD10 Code Diagnosis IMO Codes Diagnosis Note [id number] David Nguyen DPM [facility] [place] [address] [facility] [address] [place] [address] 02/06/2025 08:59:45 02/10/2025 12:54:52 Pain in toe 349696261 M79.674 M79.675 bilateral great toes Bilateral ingrowing nail of toe of feet 4220670458 0314846 L60.0 medial border both great toenailspl an February 25 partial chemical matrixecto my medial border both great toes- pending arterial studiesedu cated on treatment optionswil l obtain vascular studies to ensure adequate healing secondary to lower extremity peripheral arterial disease Peripheral arterial occlusive disease 009162904 I73.9 obtain noninvasiv e vascular studies to ensure adequate healing for upcoming in office procedures shawn has difficulty walking and has intermitte nt claudicati on symptomsde nies any open wounds Cigarette smoker 5507216 7 F17.210 4-5 dailyhas COPD and lung cancerreco mmend discontinu e smokingsid e effects of smoking reviewed with the patient [id number] David Nguyen DPM [facility] [place] [address] [place] [address] 03/27/2025 13:43:46 04/10/2025 15:22:17 Pain in toe 819351154 M79.674 M79.675 bilateral great toes Bilateral ingrowing nail of toe of feet 9312687135 2889654 L60.0 medial border both great toenailsch emical matrixecto my both medial borders great toeswound care and dressing instructio ns reviewedFo llow-up 2 weeks Peripheral arterial occlusive disease 506775361 I73.9 reviewed- diminished flow bilateral ankles but intact Cigarette smoker 8561963 7 F17.210 4-5 dailyhas COPD and lung cancerreco mmend discontinu e smokingsid e effects of smoking reviewed with the patient [id number] David Nguyen DPM [facility] Pod[facility] [place] [address] [address] 04/29/2025 10:12:02 04/30/2025 15:51:00 Bilateral ingrowing nail of toe of feet 6648400888 3796000 L60.0 medial border both great toenailsch emical matrixecto my both medial borders great toes-- Resolvedfo llow-up as needed Dystrophia unguium 26496 009 L60.3 1010 Nails 1 through 10 were debrided with sharp mechanical debridemen t without incident. Nails were debrided and greater than 50% length and thickness where needed. Health Concerns Section Related Observation LastModified by Organization Detai ls LastModified Time None Recorded Concern Status LastModified by Organization Details LastModified Time None Recorded Advance Directives Directive None Recorded Payers Insurance Date Sequence Insurance Name Policy Number Policy Holden Covered Member ID Holden Member ID Guarantor Name 02/06/2025 1 [facility] - DOS PRIOR TO 2021 (MEDICAID REPLACEMENT - HMO) Josafat Calvo [id number] Josafat Calvo 07/28/2025 1 [facility] - DOS ON OR AFTER 2020 - DUAL ELIGIBLE (MEDICARE REPLACEMENT/AD VANTAGE - HMO) Josafat Branch Umesh [id number] Josafat Branch Umesh Notes Date Note Type Note Provider [...] feel better. Patient denies any other complaints. Davdi Nguyen DPM [address], [place], [address], [employer] 02/06/2025 10:00:48 03/27/2025 text/html . Patient is a 64-year-old male who presents the office for complaints of ingrown toenails to the medial corner both great toes he denies any open wounds or infection he states he wants to pursue partial matrixectomy of both nails due to recurrent ingrown and pain. Patient understands all risks of the procedure and elects to continue. Patient denies any other complaints. David Nguyen DPM [address], [place], [address], [employer] 03/27/2025 15:56:17 04/29/2025 text/html . Patient is a 64-year-old male who returns to the office for follow-up on bilateral ingrown toenails which are completely healed and resolved. Patient denies any new complaints he has elongated toenails and would like to have them cut as he has difficulty cutting them. Patient denies any other complaints. David Nguyen DPM [address], [place], [address], [employer] 04/29/2025 11:12:41
--- OUTSIDE RECORDS SUMMARY | 2025-10-24 13:17 | XMS_ITS | Encounter Summary ---
Author Organization [facility] Address [address] [place] [address] Care Team Providers Care Shingle Trimmer Name Role Phone Monica Tellez TEACHER OF THE HANDICAPPED-ANIMAL SERVICES OFFICER Primary Care Provi cristobal Ian Pollock MD Primary Care Provider [phone] Ian Pollock MD Primary Care Provider [phone] Ian Pollock MD Primary Care Provider [phone] Ian Pollock MD Primary Care Provider [phone] Ian Pollock MD Primary Care Provider [phone] Katina Casiano DO Unavailable [phone] Xavi ACOSTA MD, Fred R Primary Care Provider + Katina Casiano DO Unavailable [phone] Tracey Ang Unavailable Unavailable Belkis Angel TEACHER OF THE HANDICAPPED-ANIMAL SERVICES OFFICER Primary Care Provider + Natalie Baum Primary Care Provider [phone] Reason for Visit * Reason Onset Date Comments Results 10/25/2019 Encounter Details Date Type Department Care Team (Late st Contact Info) Description 10/25/2019 Telephone [facility] [address] [address] Monica Tellez, TEACHER OF THE HANDICAPPED-ANIMAL SERVICES OFFICER [address] [facility] [place] [address] Results Social History Tobacco Use Types Packs/Day [...] on file 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 BLOCK SEALER Gender Identity Not on file Sexual Orientation Not on file documented as of this encounter Functional Status * Is person deaf or have serious hearing difficulty? Answer Date of Assessment Author No 11/05/2015 3:52 AM Columba Levaitt RN * Is person blind or have [...] Janice Conn RN - 10/31/2019 12:18 PM BLOCK SEALER Pt calling again stating that Lashon Tellez had sent him for a Cardiac Ultrasound. This TNs. Found HCTTE 2D w/Con Doppler/color CMPT Done 10/25/2019, in chart under Cardiac tab, Faxed to [facility]. Pt request callback: [phone]. Pt seems very nervous about his results. K SEALER * Telephone Encounter - Monica Tellez APRN-CNP - 10/25/2019 1:56 PM BLOCK SEALER Please find out what ultrasound he had. Have not ultrasound results. Who would have ordered this and where?? Monica Gavin [facility] Tellez K SEALER * Telephone Encounter - Maria Isabel William RN - 10/25/2019 1:47 PM CST Patient nervous about ultrasound result Please call [phone] K SEALER documented in this encounter Plan of Treatment [...] on filedocumented in this encounter Care Teams Shingle Trimmer Relationship Specialty Start Date End Date Monica Tellez APRN-CNP PCP - General 07/03/19 11/13/19 Ian Pollock MD PCP - General 11/14/19 12/12/19 Ian Pollock MD PCP - General 12/13/19 05/25/20 Ian Pollock MD PCP - General 05/26/20 06/15/20 Ian Pollock MD [address] DIV OF [facility] [place] [address] PCP - General 07/31/20 08/20/20 Ian Pollock MD [address] DIV OF [facility] [place] [address] PCP - General 08/21/20 05/29/23 Jameel Hurley III, MD [address] [facility] OF [facility] [place] [address] PCP - General Internal Medicine 06/05/23 08/28/23 Belkis Angel, TEACHER OF THE HANDICAPPED-ANIMAL SERVICES OFFICER [address] [place] [phone] PCP - General Nurse Practitioner 08/29/23 05/05/24 Natalie Baum [address] [place] [address] PCP - General 05/06/24 Katina Casiano DO [address] DIV OF [facility] INTERNAL MEDICINE [place], [place] Resident - PCP Internal Medicine 08/10/22 05/29/23 Katina Casiano DO [address] DIV OF [facility] INTERNAL MEDICINE [place], [place] Hospitalist 06/05/23 Tracey Ang PA [address] [facility] OF [facility] [place] [address] Physician Respiratory Therapy Technician 08/15/23 documented as of this encounter
--- OUTSIDE RECORDS SUMMARY | 2025-10-24 13:17 | XMS_ITS | Encounter Summary ---
Author Organization [facility] Address [address] [place] [address] Care Team Providers Care Media Job Titles Name Role Phone Ian Pollock MD Primary Care Provider [phone] Ian Pollock MD Primary Care Provider [phone] Ian Pollock MD Primary Care Provider [phone] Ian Pollock MD Primary Care Provider [phone] Ian Pollock MD Primary Care Provider [phone] Katina Casiano DO Unavailable [phone] Xavi ACOSTA MD, Jameel R Primary Care Provider + Katina Casiano DO Unavailable [phone] Tracey Ang Unavailable Unavailable Belkis Angel BENDING ROLL HAND-KAIAKO KOHANGA REO Primary Care Provider + Natalie Baum Primary Care Provider [phone] Reason for Visit * Reason Onset Date Comments General 12/02/2019 Encounter Details Date Type Department Care Team (Late st Contact Info) Description 12/02/2019 Telephone [facility] Internal Medicine [address] [id number] Ian Pollock MD [address] [facility] [facility] [address] [facility] [place] [address] General Social History Tobacco Use [...] on file 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 CURTAIN CUTTER HAND Gender Identity Not on file Sexual [...] vulgar language and then abruptlydisconnect line. CB# [phone] Routed to provider for further review AIN CUTTER HAND documented in this encounter Plan of [...] on filedocumented in this encounter Care Teams Media Job Titles Relationship Specialty Start Date End Date Ian Pollock MD PCP - General 11/14/19 12/12/19 Ian Pollock MD PCP - General 12/13/19 05/25/20 Ian Pollock MD PCP - General 05/26/20 06/15/20 Ian Pollock MD [address] OF [facility] [place] [address] PCP - General 07/31/20 08/20/20 Ian Pollock MD [address] OF [facility] [place] [address] PCP - General 08/21/20 05/29/23 Jameel Hurley III, MD [address] OF [facility] [place] [address] PCP - General Internal Medicine 06/05/23 08/28/23 Belkis Angel, BENDING ROLL HAND-KAIAKO KOHANGA REO [address] [facility] [address] [place] [address] PCP - General Nurse Practitioner 08/29/23 05/05/24 Natalie Baum [address] [place] [address] PCP - General 05/06/24 Katina Casiano DO [address] [facility] OF [facility] INTERNAL MEDICINE [place], [place] Resident - PCP Internal Medicine 08/10/22 05/29/23 Katina Casiano DO [address] DIV OF [facility] [place], [place] Hospitalist 06/05/23 Tracey Ang PA [address] OF [facility] [place] [address] Physician Abrading Machine Tender 08/15/23 documented as of this encounter
[2025-10-24] MEDS: IPRATROPIUM 0.5 MG/ALBUTEROL SULFATE 2.5 MG (BASE) AMPUL.NEB 3 ML INHALATION (13:18)
[2025-10-24 13:19] LABS: Alveolar/Arterial O2 Gradient 104.6 mmHg; Fractional Inspired Oxygen 32 %; HCO3 ABG 21.4 mEq/l (22.0-26.0); Oxygen Content ABG 16.0 %vol (16.0-22.0); Oxygen Saturation ABG 96.9 % (95.0-100.0); PCO2 ABG 32.4 mmHg (35.0-45.0); PO2 ABG 85.7 mmHg (80.0-100.0); PO2 FiO2 Ratio Arterial Blood 2.68 %
[2025-10-24 13:25] LABS: Liters per Minute 3.0 LPM; Modified Allen's Test Pass; Site Drawn RIGHT RADIAL
[2025-10-24 13:39] LABS: Hematocrit 33.5 % (42.0-52.0); Hemoglobin 10.7 g/dL (14.0-18.0); Immature Granulocyte Percent A 0.2 % (0-0.5); Lymphocytes Absolute Auto 1.31 K/mm3 (0.9-3.2); Mean Corpuscular HGB Conc 31.9 g/dl (32-36); Mean Corpuscular Hemoglobin 27.2 pg (26-34); Mean Corpuscular Volume 85.0 fl (80-100); Nucleated Red Blood Cells Absolute Auto 0.000 K/mm3 (0.0-0.012); Nucleated Red Blood Cells Perc 0.0 % (0.0-0.2); Platelet Count Result 165 k/mm3 (150-375); Red Blood Count 3.94 M/mm3 (4.6-6.20); White Blood Count 5.3 K/mm3 (4.5-10.0)
[2025-10-24 13:51] LABS: Alanine Aminotransferase 20 U/L (6-50); Albumin Level 3.7 g/dL (3.5-5.1); Alkaline Phosphatase 106 U/L (38-126); Anion Gap 7 mmol/L (4-12); Aspartate Amino Transferase 24 U/L (17-59); Bilirubin,Total 0.4 mg/dL (0.2-1.3); Blood Urea Nitrogen 14 mg/dL (9-20); Calcium 9.0 mg/dL (8.4-10.2); Carbon Dioxide 26 mmol/L (22-30); Chloride 100 mmol/L (98-107); Estimated CRCL calculation 101 ml/min; Estimated Glomerular Filt Rate > 60; Glucose 128 mg/dL (65-110); Potassium 3.3 mmol/L (3.4-5.0); Sodium 133 mmol/L (137-145); Total Protein 7.1 g/dL (6.3-8.2)
[2025-10-24 14:14] LABS: Influenza A QL RT-PCR Negative (Negative); Influenza B QL RT-PCR Negative (Negative); RSV RNA, RT-PCR Negative (Negative); SARS-CoV-2 RNA PCR Negative (Negative)
[2025-10-24 15:32] VITALS: BP 134/97; PULSE 103; RESP 21; O2SAT 100
[2025-10-24] MEDS: cefTRIAXone 1 GM in SODIUM CHLORIDE 0.9% IV 50 ML 100 ML IVPB (16:45)
[2025-10-24] MEDS: DOXYCYCLINE HYCLATE 100 MG TABLET PO (16:45)
[2025-10-24 16:48] VITALS: BP 144/91; PULSE 103; RESP 24; TEMP 36.8; O2SAT 100
[2025-10-24] MEDS: POTASSIUM CHLORIDE 20 MEQ ER TABLET 40 MEQ PO (17:15)
[2025-10-24] MEDS: SODIUM CHLORIDE 0.9% IV 1,000 ML 999 ML IV CONT (17:15)
--- NOTE | 2025-10-24 17:22 | WPCEDHO ---
ED Hand Off Checklist All vitals saved:yes IV Site documented:yes All med administrations documented:yes Triage Note Triage Note Pt to ED via EMS from home c/o 10/24/25 12:47 increased SOB x 2 days. Hx of metastatic lung cancer, COPD, HTN . Pt wears 3L NC baseline. Had neb tx at home yesterday that did not help. Reports productive cough and chills. a&ox4. Allergies lisinopril Allergy (Severe, Verified 10/24/25 12:54) ANGIOEDEMA Penicillins Allergy (Unknown, Verified 10/24/25 12:54) Swelling Patient received ceftriaxone in January 2025 Family History (Last Reviewed 10/24/25 @ 13:01 by Jignesh Durbin DO) Father Alcoholism Heart problem Hypertension Sibling Alcoholism Cancer Hypertension Mother Cancer Hypertension Grandparent Diabetes mellitus Heart problem Hypertension Sibling Cancer Hypertension Active Medications including assessments/comments Sodium Chloride (Normal Saline Iv) 1,000 mls @ 999 mls/hr IV CONT .Q1H1M STA Stop: 10/24/25 18:02 Last Admin: 10/24/25 17:15 Dose: 999 mls/hr Documented By: MLI Infusion/Titration Document 10/24/25 17:15 MLI (Rec: 10/24/25 17:15 MLI [id number]) Intake IV Site Peripheral Access Left Distal Forearm Container Volume 1,000 Waste Amount 0 Dosing Infusion Rate 999 Cumulative Dose Not Applicable Increase/Decrease Started Elapsed Time Elapsed Time ( 0m minutes) Administered/Completed Medications Discontinued Medications Albuterol/Ipratropium (Ipratropium 0.5 Mg/Albuterol Sulfate 2.5 Mg (Base) Ampul.Neb 3 Ml) 3 ml INHALATION ONCE STA Stop: 10/24/25 13:00 Last Admin: 10/24/25 13:18 Dose: 3 ml Documented By: [place] Doxycycline Hyclate (Doxycycline Hyclate 100 Mg Tablet) 100 mg PO ONCE ONE Stop: 10/24/25 15:38 Last Admin: 10/24/25 16:45 Dose: 100 mg Documented By: MLI Ceftriaxone Sodium 1 gm/ (Sodium Chloride) 50 mls @ 100 mls/hr IVPB ONCE STA Stop: 10/24/25 16:06 Last Infusion: 10/24/25 17:16 Dose: Infused Documented By: Admin: 10/24/25 16:45 Dose: 100 mls/hr Documented By: ANTONIO Methylprednisolone Sodium Succinate (Methylprednisolone Sod Succ 125 Mg Vial) 125 mg IV PUSH ONCE STA Stop: 10/24/25 13:00 Last Admin: 10/24/25 13:02 Dose: 125 mg Documented By: ANTONIO Potassium Chloride (Potassium Chloride 20 Meq Er Tablet) 40 meq PO ONCE STA Stop: 10/24/25 16:52 Last Admin: 10/24/25 17:15 Dose: 40 meq Documented By: ANTONIO Interventions/Assessments IV / Saline Lock, Insert Start: 10/24/25 12:54 Freq: STAT Status: Active Protocol: Document 10/24/25 12:54 MLI (Rec: 10/24/25 12:56 MLI [id number]) IV Assessment Peripheral Access Left Distal Forearm IV Catheter Access Initiated Before Arrival IV Insertion Date 10/24/25 Catheter Gauge 18 IV Site Assessment WNL IV Care and WNL Maintenance PA: Cardiovascular Assessment Start: 10/24/25 12:40 Freq: Status: Active Protocol: Document 10/24/25 12:55 MLI (Rec: 10/24/25 12:56 MLI [id number]) Cardiovascular Assessment Cardiovascular Dyspnea Symptoms Skin Description Normal Color Jugular Vein None Distention PA: Respiratory Assessment Start: 10/24/25 12:40 Freq: Status: Active Protocol: Document 10/24/25 15:32 MLI (Rec: 10/24/25 15:33 MLI [id number]) Respiratory Assessment Effort Normal Pattern Regular Depth Normal Chest Expansion Symmetrical Adult Capillary Normal/Less than 2 Seconds Refill Additional Pt reports feeling better Respiratory Comments Last Vital Signs Temperature 98.2 F 10/24/25 16:48 Pulse Rate 103 H 10/24/25 16:48 Respiratory Rate 24 H 10/24/25 16:48 Pulse Oximetry 100 10/24/25 16:48 Blood Pressure 144/91 H 10/24/25 16:48 Blood Pressure Mean 108 10/24/25 16:48 Oxygen Delivery Nasal Cannula 10/24/25 12:55 Oxygen Flow Rate 3 10/24/25 12:55 Weight 86.3 kg 10/24/25 12:47 Last Result - Abnormals Only RBC 3.94 M/mm3 (4.6-6.20) L 10/24/25 13:33 Hgb 10.7 g/dL (14.0-18.0) L 10/24/25 13:33 Hct 33.5 % (42.0-52.0) L 10/24/25 13:33 MCHC 31.9 g/dl (32-36) L 10/24/25 13:33 RDW 15.9 % (11.5-14.5) H 10/24/25 13:33 Anson % (Auto) 14.8 % (2.6-8.5) H 10/24/25 13:33 Eos % (Auto) 7.9 % (0-4.4) H 10/24/25 13:33 Anson # (Auto) 0.8 K/mm3 (0.1-0.6) H 10/24/25 13:33 Eos # (Auto) 0.4 K/mm3 (0-0.3) H 10/24/25 13:33 ABG pCO2 32.4 mmHg (35.0-45.0) L 10/24/25 13:14 ABG HCO3 21.4 mEq/l (22.0-26.0) L 10/24/25 13:14 Sodium 133 mmol/L (137-145) L 10/24/25 13:33 Potassium 3.3 mmol/L (3.4-5.0) L 10/24/25 13:33 Creatinine 0.63 mg/dL (0.7-1.3) L 10/24/25 13:33 Glucose 128 mg/dL (65-110) H 10/24/25 13:33 Most Recent Suicide Severity Rating Suicide Severity Rating NO RISK INDICATED 10/24/25 12:47
--- OUTSIDE RECORDS SUMMARY | 2025-10-24 17:33 | XMS_ITS | Encounter Summary ---
Author Organization [facility] Address [facility] [place] [address] Care Team Providers Care Employee Welfare Manager Name Role Phone Amilcar Osorio MD Primary Care Provider [phone] Monica Tellez NP Primary Care Provider [phone] Natalie Baum MANAGER MOUNTAIN Primary Care Provider + [phone] Encounter Details Date Type Department Care Team (Late st Contact Info) Description 07/03/2018 Abstract [facility] Medical Group Multispecialty Care - [facility] [address] [facility] [address] [place] [address] Gina Fleming APNP [address] [place] [address] Social History Tobacco Use Types Packs/Day Years [...] on filedocumented in this encounter Care Teams Employee Welfare Manager Relationship Specialty Start Date End Date Amilcar Osorio MD [address] [facility], [address] [address] PCP - General 05/01/17 09/04/19 Monica Tellez NP [address] [place] [address] PCP - General NURSE PRACTITIONER 09/05/19 01/18/25 Natalie Baum NP [address] [place] [address] PCP - General FAMILY PRACTICE 01/19/25 documented as of this encounter
--- OUTSIDE RECORDS SUMMARY | 2025-10-24 17:33 | XMS_ITS | Encounter Summary ---
Author Organization [facility] Address [facility] [place] [address] Care Team Providers Care Sewing Machine Maintenance Mechanic Name Role Phone Amilcar Osorio MD Primary Care Provider [phone] Monica Tellez NP Primary Care Provider [phone] Natalie Baum PERSONAL LINES ADVISOR Primary Care Provider + [phone] Encounter Details Date Type Department Care Team (Late st Contact Info) Description 04/02/2018 Hosp Visit [facility] Outpatient Therapy [address] [facility] [address] [place], [place] [address] Grecia Hess, [place] [address] Social History Tobacco Use Types Packs/Day Years [...] filedocumented in this encounter Care Teams Sewing Machine Maintenance Mechanic Relationship Specialty Start Date End Date Amilcar Osorio MD [address], [address] [address] PCP - General 05/01/17 09/04/19 Monica Tellez PERSONAL LINES ADVISOR [address] [address] PCP - General NURSE PRACTITIONER 09/05/19 01/18/25 Natalie Baum NP [address] [place] [address] PCP - General FAMILY PRACTICE 01/19/25 documented as of this encounter
--- OUTSIDE RECORDS SUMMARY | 2025-10-24 17:33 | XMS_ITS | Encounter Summary ---
Author Organization [facility] Address [facility] [place] [address] Care Team Providers Care Hand Bootmaker Name Role Phone Amilcar Osorio MD Primary Care Provider [phone] Monica Tellez NP Primary Care Provider [phone] Natalie Baum SACK CLEANING HAND Primary Care Provider + [phone] Encounter Details Date Type Department Care Team (Late st Contact Info) Description 04/09/2018 Hosp Visit [facility] Outpatient Therapy [address] [facility] [address] [place], [place] [address] Grecia [place], [place] [address] Social History Tobacco Use Types Packs/Day Years [...] filedocumented in this encounter Care Teams Hand Bootmaker Relationship Specialty Start Date End Date Amilcar Osorio MD [address], [address] [address] PCP - General 05/01/17 09/04/19 Monica Tellez SACK CLEANING HAND [address] [address] PCP - General NURSE PRACTITIONER 09/05/19 01/18/25 Natalie Baum NP [address] [place] [address] PCP - General FAMILY PRACTICE 01/19/25 documented as of this encounter
--- OUTSIDE RECORDS SUMMARY | 2025-10-24 17:33 | XMS_ITS | Encounter Summary ---
Author Organization [facility] Address [address] [facility] [place] [address] Care Team Providers Care Whitewater Rafting Guide Name Role Phone Ian Pollock MD Primary Care Provider [phone] Katina Casiano DO Unavailable [phone] Xavi ACOSTA MD, Jameel R Primary Care Provider + Katina Casiano DO Unavailable [phone] Tracey Ang Unavailable Unavailable Belkis Angel TILE APPLICATOR-SYSTEMS LEAD Primary Care Provider + Natalie Baum Primary Care Provider [phone] Reason for Visit * Reason Onset Date Comments Refill Request 04/13/2021 Encounter Details Date Type Department Care Team (Late st Contact Info) Description 04/13/2021 Telephone [facility] [address] [place], [place] [id number] Ian Pollock MD [address] [place] [address] Refill Request Social History Tobacco Use Types Packs/Day Years Used Date Smoking Tobacco: Every Day Cigarettes 1 30 Smokeless Tobacco: Never Alcohol Use Standard Drinks/Week Comments Yes 6 (1 standard drink = 0.6 oz pure alcohol) beer madi. 25 oz 3 times a week Sex and Gender Information Value Date Recorded Sex Assigned at Not on file 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 HEALTH ANALYST Gender Identity Not on file Sexual [...] to be refilled. Patient Call Back number: [phone] documented in this encounter Plan of Treatment [...] sciatica documented in this encounter Care Teams Whitewater Rafting Guide Relationship Specialty Start Date End Date Ian Pollock MD [address] DIV OF [facility] [place] [address] PCP - General 08/21/20 05/29/23 Jameel Hurley III, MD [address] OF [facility] [place] [address] PCP - General Internal Medicine 06/05/23 08/28/23 Belkis Angel, TILE APPLICATOR-SYSTEMS LEAD [address] [place] [address] [address] [place] [address] PCP - General Nurse Practitioner 08/29/23 05/05/24 Natalie Baum [address] [place] [address] PCP - General 05/06/24 Katina Casiano DO [address] [facility] OF [facility] INTERNAL MEDICINE [place], [place] Resident - PCP Internal Medicine 08/10/22 05/29/23 Katina Casiano DO [address] DIV OF GEN INTERNAL MEDICINE [place], [place] Hospitalist 06/05/23 Tracey Ang PA [address] [facility] [address] [facility] [place] [address] Physician General Education Instructor 08/15/23 documented as of this encounter
--- OUTSIDE RECORDS SUMMARY | 2025-10-24 17:33 | XMS_ITS | Clinical Summary ---
Author Organization [facility] Address [address] [facility] [place] [address] Care Team Providers Care Supervisor Sample Preparation Name Role Phone Katina Casiano DO Unavailable [phone] Tracey Ang PA Unavailable Unavailable Natalie Baum Primary Care Provider Source Comments [facility],non-owned Affiliates and Associated Physician Practices is amultiple site organization consisting of ambulatory clinics and hospital sitesin [place], [place], [place]. This disclosure is being madepursuant to the Care Everywhere program and may not contain all information available regarding this patient. Last updated 18.[facility] Allergies Active Allergy Reactions Criticality Noted [...] MG/3ML) 0.083% nebulizer solutionIndicati ons:Centrilobula r emphysema (HCC),Asthma-RESTAURANT HOSPITALITY MANAGER D overlap syndrome (HCC) Inhale 2.5 (two [...] Active Symbicort 160-4.5 MCG/ACT inhalerIndicatio ns:Centrilobular emphysema (HCC),Asthma-RESTAURANT HOSPITALITY MANAGER D overlap syndrome (HCC) Inhale 2 (two) puffs by mouth once daily 10.2 g 3 3 Active albuterol HFA (Proventil; Ventolin; Proair) 108 (90 Base) MCG/ACT inhalerIndicatio ns:Centrilobular emphysema (HCC),Asthma-RESTAURANT HOSPITALITY MANAGER D overlap syndrome (HCC) Inhale 2 (two) [...] 01/04/2023 Assessment & Plan (01/04/2023 2:27 PM MELTING OPERATOR): - sleep study pending Fatigue 01/04/2023 Assessment & Plan (01/04/2023 2:28 PM MELTING OPERATOR): - Check TSH - pending sleep [...] 07/29/2022 Assessment & Plan (01/04/2023 2:26 PM MELTING OPERATOR): - Due for TDap, Zoster, Covid [...] 07/29/2022 Assessment & Plan (01/04/2023 2:19 PM MELTING OPERATOR): - Will try to resend Eplerenone, [...] 01/05/2022 Assessment & Plan (01/04/2023 2:26 PM MELTING OPERATOR): - Likely sleep-related, obesity, SHAYNE - Cont. PPI Sleep choking syndrome 01/05/2022 PND (paroxysmal nocturnal dyspnea) 01/05/2022 Bipolar affective disorder 12/24/2021 Back pain 12/24/2021 Family history of other specified conditions Asthma-COPD overlap syndrome 11/11/2021 Assessment & Plan (01/04/2023 2:18 PM MELTING OPERATOR): - Tob cessation Chronic midline low back pain without sciatica 0 11/09/2021 Lumbosacral disc disease 11/09/2021 Foraminal stenosis of lumbar region 11/09/2021 Heart failure with reduced ejection fraction 09/2021 Assessment & Plan (05/30/2023 3:04 PM CDT): HF with EF recovered to normal. Continue current treatment. Assessment & Plan (01/04/2023 2:16 PM MELTING OPERATOR): - See HTN above - Pt [...] 07/11/2019 Assessment & Plan (01/04/2023 2:15 PM MELTING OPERATOR): - Stable, despite holding spirono due [...] 11/06/2017 Assessment & Plan (01/04/2023 2:13 PM MELTING OPERATOR): - Encouraged cessation, ready to quit [...] Physician Group - Cardiology [address] [facility] [address] [place] [address] Kyra Lawrence, RUSS-CIGAR HEAD PUNCHER Refill Request from Last 3 Months Immunizations [...] on file 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 MELTING OPERATOR Gender Identity Not on file Sexual [...] ENDOSCOPY, COLON, SCREENING Routine 12/07/2022 10:04 AM MELTING OPERATOR COMPREHENSIVE METABOLIC PANEL Routine 08/09/2022 1:47 PM CDT Weight loss HEPATITIS C AB W/RFLX TO HCV RNA QN PCR 09/19/2019 9:17 AM MELTING OPERATOR from Last 3 Months or Most Recently Relevant to Health Maintenance Results * ENDOSCOPY, COLON, SCREENING (12/07/2022 10:04 AM MELTING OPERATOR) Report Endoscopy POC Endoscopy Department Report [...] entire procedure. Procedure Code(s): --- Professional --- 30557, Colonoscopy, flexible; with removal of tumor(s), polyp(s), or other lesion(s) by snare technique Diagnosis Code(s): --- Professional --- Z86.010, Personal history of colonic polyps K63.5, Polyp of colon Z80.0, Family history of malignant neoplasm of digestive organs CPT copyright 2019 [employer]. All rights reserved. The codes documented in this report are preliminary and upon channel installer review may be revised to meet current compliance requirements. Tal Mccormick, 12/07/2022 10:49:20 AM Note Initiated On: 12/07/2022 10:04 AM Number of Addenda: [address] PROVATION 12/07/2022 10:0 4 AM MELTING OPERATOR [facility] Tal Mccormick MD GI PROCEDURE O RDERABLES Edited Result - Final [facility] PROVATION * (ABNORMAL) COMPREHENSIVE METABOLIC PANEL (08/09/2022 [...] 46 U/L [facility] Comment: Test Performed at: [facility] [address] [place] [address] PRUDENCIO ALDANA DO,MPH Blood BLOOD SPECIMEN / Unknown 08/09/2022 1:47 PM CDT 08/09/2022 1:50 PM CDT Ian Pollock MD LAB - CHEMISTRY ORDERABLES Fin al Result [facility] [id number] [place] [address] * HEPATITIS C AB W/RFLX TO HCV RNA QN PCR (09/19/2019 9:17 AM MELTING OPERATOR) Hepatitis C Antibody NON-REACTI VE NON-REACT FELY [facility] Signal to Cut-Off 0.03 <1.00 [facility] Comment: HCV antibody was non-reactive. There is no laboratory evidence of HCV infection. In most cases, no further action is required. However, if recent HCV exposure is suspected, a test for HCV RNA (test code 96904) is suggested. For additional information please refer to http://education.Q-Layer/faq/KCZ53w4 (This link is being provided for informational/ educational purposes only.) Test Performed at: [facility] [address] [place] [address] PRUDENCIO ALDANA DO,MPH 09/19/2019 9:17 AM MELTING OPERATOR 09/19/2019 9:21 AM MELTING OPERATOR Monica Tellez AUTOMOTIVE PARTS COUNTER PERSON-CIGAR HEAD PUNCHER LAB - CHEMISTRY ORD ERABLES Final Result [facility] [id number] [place] [address] from Last 3 Months or Most Recently Relevant to Health Maintenance Insurance [facility] Advance Directives Documents on File Type Date Recorded Patient Insurance Processor Expl anation Adv Directive/Living Will/POA 11/05/2015 12:22 PM * Full Code (Latest Code Status on File) Date Activated Date Inactivated Comments 11/01/2015 9:11 PM 11/05/2015 6:02 AM Care Teams Supervisor Sample Preparation Relationship Specialty Start Date End Date Natalie Baum [address] [place] [address] PCP - General 05/06/24 Katina Casiano DO [address] DIV OF [facility] INTERNAL MEDICINE [place], [place] Hospitalist 06/05/23 Tracey Ang PA [address] DIV OF [facility] INTERNAL MEDICINE [place], [place] Physician Tip Printer 08/15/23
--- OUTSIDE RECORDS SUMMARY | 2025-10-24 17:33 | XMS_ITS | Encounter Summary ---
Author Organization [facility] Address [facility] [place] [address] Care Team Providers Care Furnace Erector Name Role Phone Amilcar Osorio MD Primary Care Provider [phone] Monica Tellez NP Primary Care Provider [phone] Natalie Baum PLANT HEALTH MANAGER Primary Care Provider + [phone] Encounter Details Date Type Department Care Team (Late st Contact Info) Description 04/09/2018 Hosp Visit [facility] Outpatient Therapy [address] [facility] [address] [place], [place] [address] Grecia Hess, [place] [address] Social History Tobacco Use Types Packs/Day Years [...] on filedocumented in this encounter Care Teams Furnace Erector Relationship Specialty Start Date End Date Amilcar Osorio MD [address], [address] [address] PCP - General 05/01/17 09/04/19 Monica Tellez PLANT HEALTH MANAGER [address] [address] PCP - General NURSE PRACTITIONER 09/05/19 01/18/25 Natalie Baum NP [address] [place] [address] PCP - General FAMILY PRACTICE 01/19/25 documented as of this encounter
--- OUTSIDE RECORDS SUMMARY | 2025-10-24 17:33 | XMS_ITS | Encounter Summary ---
Author Organization [facility] Address [address] [place] [address] Care Team Providers Care Electrical Continuity Tester Name Role Phone Ian Pollock MD Primary Care Provider [phone] Katina Casiano DO Unavailable [phone] Xavi ACOSTA MD, Jameel R Primary Care Provider + Katina Casiano DO Unavailable [phone] Tracey Ang Unavailable Unavailable Belkis Angel NUCLEAR WORKER TECHNICIAN-CUSTOM BOOKBINDER Primary Care Provider + Natalie Baum Primary Care Provider [phone] Reason for Visit * Reason Onset Date Comments Letter 12/02/2020 Encounter Details Date Type Department Care Team (Late st Contact Info) Description 12/02/2020 Telephone [facility] Pulmonary, Critical Care and Sleep Medicine [address] [place] [address] Agnieszka Haas MD [address] [place] [address] Letter Social History Tobacco Use Types Packs/Day Years Used Date Smoking Tobacco: Every Day Cigarettes 1 30 Smokeless Tobacco: Never Alcohol Use Standard Drinks/Week Comments Yes 6 (1 standard drink = 0.6 oz pure alcohol) beer madi. 25 oz 3 times a week Sex and Gender Information Value Date Recorded Sex Assigned at Not on file 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 DENTAL ASSOCIATE Gender Identity Not on file Sexual Orientation Not on file Occupation Industry Job Start Date Job End Date disability Not on file Not on file Not on file COVID-19 Exposure Response Date Recorded In the last month, have you been in contact with someone who was confirmed or suspected to have Coronavirus / COVID-19? Unable to assess 11/18/2020 1:41 PM DENTAL ASSOCIATE documented as of this encounter Functional [...] vaccine sooner Thanks. Patient Call Back number: [phone] AL ASSOCIATE documented in this encounter Plan of Treatment [...] filedocumented in this encounter Care Teams Electrical Continuity Tester Relationship Specialty Start Date End Date Ian Pollock MD [address] DIV OF [facility] [place] [address] PCP - General 08/21/20 05/29/23 Jameel Hurley III, MD [address] DIV OF [facility] [place] [address] PCP - General Internal Medicine 06/05/23 08/28/23 Belkis Angel APRN-CUSTOM BOOKBINDER [address] [place] [phone] PCP - General Nurse Practitioner 08/29/23 05/05/24 Natalie Baum [address] [place] [address] PCP - General 05/06/24 Katina Casiano DO [address] DIV OF [facility] INTERNAL [place], [place] Resident - PCP Internal Medicine 08/10/22 05/29/23 Katina Casiano DO [address] DIV OF [facility] INTERNAL MEDICINE [place], [place] Hospitalist 06/05/23 Tracey Ang PA [address] DIV OF [facility] [place] [address] Physician Pack Worker 08/15/23 documented as of this encounter
--- OUTSIDE RECORDS SUMMARY | 2025-10-24 17:33 | XMS_ITS | Encounter Summary ---
Author Organization [facility] Address [address] [facility] [place] [address] Care Team Providers Care Hr Shared Services Consultant Name Role Phone Ian Pollock MD Primary Care Provider Katina Casiano DO Unavailable [phone] Xavi ACOSTA MD, Jameel Gaviria Primary Care Provider + Katina Casiano DO Unavailable [phone] Tracey Ang PA Unavailable Unavailable Belkis Angel BOBBIN FIXER-MICROPHONE BOOM OPERATOR Primary Care Provider + Natalie Baum Primary Care Provider [phone] Encounter Details Date Type Department Care Team (Late st Contact Info) Description 04/22/2021 Telephone [facility] [address] [place] [address] Kezia Hollis MD [address] OF PULMONARY/[place] [address] Social History Tobacco Use Types Packs/Day Years Used Date Smoking Tobacco: Every Day Cigarettes 1 30 Smokeless Tobacco: Never Alcohol Use Standard Drinks/Week Comments Yes 6 (1 standard drink = 0.6 oz pure alcohol) beer madi. 25 oz 3 times a week Sex and Gender Information Value Date Recorded Sex Assigned at Not on file 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 AIRCRAFT ENGINE DISMANTLER Gender Identity Not on file Sexual Orientation [...] stay with Dr. Hollis? Call Back #: [phone] documented in this encounter Plan of Treatment [...] on filedocumented in this encounter Care Teams Hr Shared Services Consultant Relationship Specialty Start Date End Date Ian Pollock MD [address] DIV OF [facility] [place] [address] PCP - General 08/21/20 05/29/23 Jameel Hurley III, MD [address] DIV OF [facility] [place] [phone] PCP - General Internal Medicine 06/05/23 08/28/23 Belkis Angel APRN-MICROPHONE BOOM OPERATOR [address] [place] [phone] PCP - General Nurse Practitioner 08/29/23 05/05/24 Natalie Baum [address] [place] [address] PCP - General 05/06/24 Katina Casiano DO [address] DIV OF [facility] INTERNAL [place], [place] Resident - PCP Internal Medicine 08/10/22 05/29/23 Katina Casiano DO [address] DIV OF [facility] INTERNAL [place], [place] Hospitalist 06/05/23 Tracey Ang PA [address] DIV OF [facility] [place] [address] Physician Intern Brand 08/15/23 documented as of this encounter
--- OUTSIDE RECORDS SUMMARY | 2025-10-24 17:33 | XMS_ITS | Encounter Summary ---
Author Organization [facility] Address [facility] [place] [address] Care Team Providers Care Biopsychologist Name Role Phone Amilcar Osorio MD Primary Care Provider [phone] Monica Tellez NP Primary Care Provider [phone] Natalie Baum TRAINING ASSOCIATE Primary Care Provider + [phone] Encounter Details Date Type Department Care Team (Late st Contact Info) Description 04/16/2018 Hosp Visit [facility] Outpatient Therapy [facility] [address] [place], [place] [id number] Grecia Hess, [place] [address] Social History Tobacco Use Types Packs/Day Years [...] on filedocumented in this encounter Care Teams Biopsychologist Relationship Specialty Start Date End Date Amilcar Osorio MD [address], [address] [address] PCP - General 05/01/17 09/04/19 Monica Tellez TRAINING ASSOCIATE [address] [address] PCP - General NURSE PRACTITIONER 09/05/19 01/18/25 Natalie Baum NP [address] [place] [address] PCP - General FAMILY PRACTICE 01/19/25 documented as of this encounter
--- OUTSIDE RECORDS SUMMARY | 2025-10-24 17:34 | XMS_ITS ---
Author Organization [facility] Address [address] [place] [address] Care Team Providers Care Physics Professor Name Role Phone Matthew Mccabe MD Primary Care Prov ider Stan Meza MD Unavailable Natalie Baum NP Unavailable [phone] Active Problems Problem Noted Date Diagnosed [...] MD Stan 4 of 6 cycles started [id number] [facility] - VAISHALI-PEG 20 / Docetaxel / Gemcitabine 5 07/03/2025 DOCEtaxel (TAXOTERE)gemcita bine (GEMZAR)[facility] VAISHALI-PEG 20 ( [id number]) Patient Preference Karin Zaman, APPEALS EXAMINER 1 of 6 cycles started Pembrolizumab / [...]
--- OUTSIDE RECORDS SUMMARY | 2025-10-24 17:34 | XMS_ITS | Encounter Summary ---
Author Organization [facility] Address [address] [facility] [place] [address] Care Team Providers Care Catalyst Unit Operator Name Role Phone Ian Pollock MD Primary Care Provider [phone] Ian Pollock MD Primary Care Provider [phone] Ian Pollock MD Primary Care Provider [phone] Ian Pollock MD Primary Care Provider [phone] Katina Casiano DO Unavailable [phone] Xavi ACOSTA MD, Fred R Primary Care Provider + Katina Casiano DO Unavailable [phone] Tracey Ang PA Unavailable Unavailable Belkis Angel BUSINESS SYSTEM CONSULTANT-ENGINE COWLING INSTALLER Primary Care Provider + Natalie Baum Primary Care Provider [phone] Reason for Visit * Reason Onset Date Comments Referral 12/13/2019 Encounter Details Date Type Department Care Team (Late st Contact Info) Description 12/13/2019 Telephone 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 Pollock today. OLEER STRAIGHTENER STAMPER * Telephone Encounter - Monica Tellez APRN-CNP - 12/16/2019 4:30 PM BANDOLEER STRAIGHTENER STAMPER Do not know any hat sizer on [facility]. He will need to call his insurance company for list of [place] hat sizer. His appt was to be changed from Dr Pollock to a resident since Dr Pollock will be going to very [facility] [employer] and service director in March and should not have new patients. MARISOL Díaz OLEER STRAIGHTENER STAMPER * Telephone Encounter - Janice Conn RN - 12/13/2019 10:45 AM BANDOLEER STRAIGHTENER STAMPER Routing message to Dr Pollock OLEER STRAIGHTENER STAMPER * Telephone Encounter - Meenu Hidalgo - 12/13/2019 10:36 AM CST PT is calling and wanting to be referred to a hat sizer on the [facility]. PT stats it wouldbe more convenient and easier for the med cab. PT CBN:[phone] OLEER STRAIGHTENER STAMPER documented in this encounter Plan of Treatment [...] on filedocumented in this encounter Care Teams Catalyst Unit Operator Relationship Specialty Start Date End Date Ian Pollock MD PCP - General 12/13/19 05/25/20 Ian Pollock MD PCP - General 05/26/20 06/15/20 Ian Pollock MD [address] [place] [address] PCP - General 07/31/20 08/20/20 Ian Pollock MD [address] DIV OF [facility] [place] [address] PCP - General 08/21/20 05/29/23 Jameel Hurley III, MD [address] DIV OF [facility] [place] [phone] PCP - General Internal Medicine 06/05/23 08/28/23 Belkis Angel, BUSINESS SYSTEM CONSULTANT-ENGINE COWLING INSTALLER [address] [place] [phone] PCP - General Nurse Practitioner 08/29/23 05/05/24 Natalie Baum [address] [place] [address] PCP - General 05/06/24 Katina Casiano DO [address] DIV OF [facility] INTERNAL MEDICINE [place], [place] Resident - PCP Internal Medicine 08/10/22 05/29/23 Katina Casiano DO [address] DIV OF [facility] INTERNAL MEDICINE [place] Hospitalist 06/05/23 Tracey Ang PA [address] DIV OF [facility] [place] [address] Physician Culvert Installer 08/15/23 documented as of this encounter
--- OUTSIDE RECORDS SUMMARY | 2025-10-24 17:34 | XMS_ITS | Encounter Summary ---
Author Organization [facility] Address [address] [facility] [place] [address] Care Team Providers Care Real Estate Instructor Name Role Phone Ian Pollock MD Primary Care Provider [phone] Ian Pollock MD Primary Care Provider [phone] Ian Pollock MD Primary Care Provider [phone] Ian Pollock MD Primary Care Provider [phone] Ian Pollock MD Primary Care Provider [phone] Katina Casiano DO Unavailable [phone] Xavi ACOSTA MD, Jameel R Primary Care Provider + Katina Casiano DO Unavailable [phone] Tracey Ang Unavailable Unavailable Belkis Angel OFFICE SYSTEM ANALYST-HAIRSPRING SETTER Primary Care Provider + Natalie Baum Primary Care Provider [phone] Reason for Visit * Reason Onset Date Comments General 12/02/2019 Encounter Details Date Type Department Care Team (Late st Contact Info) Description 12/02/2019 Telephone [facility] General Internal Medicine [address] [phone] Ian Pollock MD [address] [facility] [address] [facility] OF [place] [address] General Social History Tobacco Use [...] on file 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 CB# [phone] Routed to provider for further review RERS HELPER documented in this encounter Plan of Treatment [...] on filedocumented in this encounter Care Teams Real Estate Instructor Relationship Specialty Start Date End Date Ian Pollock MD PCP - General 11/14/19 12/12/19 Ian Pollock MD PCP - General 12/13/19 05/25/20 Ian Pollock MD PCP - General 05/26/20 06/15/20 Ian Pollock MD [address] DIV OF [facility] [place] [address] PCP - General 07/31/20 08/20/20 Ian Pollock MD [address] DIV OF [facility] [place] [address] PCP - General 08/21/20 05/29/23 Jameel Hurley III, MD [address] DIV OF [facility] [place] [address] PCP - General Internal Medicine 06/05/23 08/28/23 Belkis Angel, OFFICE SYSTEM ANALYST-HAIRSPRING SETTER [address] [facility] 2nd [place] [address] PCP - General Nurse Practitioner 08/29/23 05/05/24 Natalie Baum [address] [place] [address] PCP - General 05/06/24 Katina Casiano DO [address] DIV OF [facility] INTERNAL MEDICINE [place], [place] Resident - PCP Internal Medicine 08/10/22 05/29/23 Katina Casiano DO [address] DIV OF GEN INTERNAL MEDIC[place], [place] Hospitalist 06/05/23 Tracey Ang PA [address] DIV OF [facility] [place] [address] Physician Gas Plant Technician 08/15/23 documented as of this encounter
--- OUTSIDE RECORDS SUMMARY | 2025-10-24 17:34 | XMS_ITS | Encounter Summary ---
Author Organization [facility] Address [address] [place] [address] Care Team Providers Care Licensed Occupational Therapist Name Role Phone Ian Pollock MD Primary Care Provider [phone] Katina Casiano DO Unavailable [phone] Xavi ACOSTA MD, Jameel Gaviria Primary Care Provider + Katina Casiano DO Unavailable [phone] Tracey Ang Unavailable Unavailable Belkis Angel UX DEVELOPER-AUTO VINYL TOP INSTALLER Primary Care Provider + Natalie Baum Primary Care Provider [phone] Encounter Details Date Type Department Care Team (Late st Contact Info) Description 03/03/2022 Telephone [facility] [address] [place] [address] Alvarez Duarte MD [address] [address] Social History Tobacco Use Types Packs/Day Years [...] on file 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 He is having transportation issues med [employer] does not run that late. He will call back to schedule when he can figure out his transportation. Please cancel this appt for him. Patient Call Back number: [phone] documented in this encounter Plan of Treatment [...] on filedocumented in this encounter Care Teams Licensed Occupational Therapist Relationship Specialty Start Date End Date Ian Pollock MD [address] OF [facility] [place] [address] PCP - General 08/21/20 05/29/23 Jameel Hurley III, MD [address] DIV OF [facility] [place] [phone] PCP - General Internal Medicine 06/05/23 08/28/23 Belkis Angel APRN-AUTO VINYL TOP INSTALLER [address] [place] [phone] PCP - General Nurse Practitioner 08/29/23 05/05/24 Natalie Baum [address] [place] [address] PCP - General 05/06/24 Katina Casiano DO [address] OF [facility] INTERNAL MEDICINE [place], [place] Resident - PCP Internal Medicine 08/10/22 05/29/23 Katina Casiano DO [address] OF [facility] INTERNAL MEDICINE [place] Hospitalist 06/05/23 Tracey Ang PA [address] OF [facility] [place] [address] Physician Liberal Arts Teacher 08/15/23 documented as of this encounter
--- OUTSIDE RECORDS SUMMARY | 2025-10-24 17:34 | XMS_ITS | Encounter Summary ---
Author Organization [facility] Address [address] [facility] [place] [address] Care Team Providers Care Chain Maker Machine Name Role Phone Ian Pollock MD Primary Care Provider [phone] Katina Casiano DO Unavailable [phone] Xavi ACOSTA MD, Fred R Primary Care Provider + Katina Casiano DO Unavailable [phone] Tracey Ang Unavailable Unavailable Belkis Angel INSTRUCTOR PAINTING-BLUE LEATHER SORTER Primary Care Provider + Natalie Baum Primary Care Provider [phone] Reason for Visit * Reason Onset Date Comments Cardiac Rehab 02/23/2022 Encounter Details Date Type Department Care Team (Late st Contact Info) Description 02/23/2022 Telephone [facility] [address] [place] [address] Rama Lagos edge beader Social History Tobacco Use Types Packs/Day Years [...] on file 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 Gender Identity Not on file Sexual Orientation [...] filedocumented in this encounter Care Teams Chain Maker Machine Relationship Specialty Start Date End Date Ian Pollock MD [address] DIV OF [facility] [place] [address] PCP - General 08/21/20 05/29/23 Jameel Hurley III, MD [address] DIV OF [facility] [place] [address] PCP - General Internal Medicine 06/05/23 08/28/23 Belkis Angel APRN-BLUE LEATHER SORTER [address] [facility] 2nd [place] [address] PCP - General Nurse Practitioner 08/29/23 05/05/24 Natalie Baum [address] [place] [address] PCP - General 05/06/24 Katina Casiano DO [address] DIV OF [facility] INTERNAL MEDICINE [place] Resident - PCP Internal Medicine 08/10/22 05/29/23 Katina Casiano DO [address] DIV OF [facility] INTERNAL MEDICINE [place], [place] Hospitalist 06/05/23 Tracey Ang PA [address] DIV OF [facility] [place] [address] Physician Heating And Ventilating Worker 08/15/23 documented as of this encounter
--- OUTSIDE RECORDS SUMMARY | 2025-10-24 17:34 | XMS_ITS | Encounter Summary ---
Author Organization [facility] Address [address] [place] [address] Care Team Providers Care Account Services Coordinator Name Role Phone Ian Pollock MD Primary Care Provider [phone] Ian Pollock MD Primary Care Provider [phone] Ian Pollock MD Primary Care Provider [phone] Ian Pollock MD Primary Care Provider [phone] Katina Casiano DO Unavailable [phone] Xavi ACOSTA MD, Jameel R Primary Care Provider + Katina Casiano DO Unavailable [phone] Tracey Ang PA Unavailable Unavailable Belkis Angel REEL STRIPPER-BUTCHER'S ASSISTANT Primary Care Provider + Natalie Baum Primary Care Provider [phone] Reason for Visit * Reason Onset Date Comments MEDICATION REFILL 05/05/2020 Encounter Details Date Type Department Care Team (Late st Contact Info) Description 05/05/2020 Refill [facility] Pulmonary, Critical Care and Sleep Medicine [address] [place] [address] Agnieszka Haas MD [address] [place] [address] MEDICATION REFILL Social History Tobacco Use Types [...] on file 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 Gender Identity Not on file Sexual Orientation [...] filedocumented in this encounter Care Teams Account Services Coordinator Relationship Specialty Start Date End Date Ian Pollock MD PCP - General 12/13/19 05/25/20 Ian Pollock MD PCP - General 05/26/20 06/15/20 Ian Pollock MD [address] DIV OF [facility] [place] [address] PCP - General 07/31/20 08/20/20 Ian Pollock MD [address] DIV OF [facility] [place] [address] PCP - General 08/21/20 05/29/23 Jameel Hurley III, MD [address] DIV OF [facility] [place] [phone] PCP - General Internal Medicine 06/05/23 08/28/23 Belkis Angel, REEL STRIPPER-BUTCHER'S ASSISTANT [address] [place] [phone] PCP - General Nurse Practitioner 08/29/23 05/05/24 Natalie Baum [address] [place] [address] PCP - General 05/06/24 Katina Casiano DO [address] DIV OF [facility] INTERNAL MEDICINE [place], [place] Resident - PCP Internal Medicine 08/10/22 05/29/23 Katina Casiano DO [address] DIV OF [facility] INTERNAL MEDICINE [place], [place] Hospitalist 06/05/23 Tracey Ang PA [address] DIV OF [facility] [place] [address] Physician Rn Charge 08/15/23 documented as of this encounter
--- OUTSIDE RECORDS SUMMARY | 2025-10-24 17:34 | XMS_ITS | Encounter Summary ---
Author Organization [facility] Address [address] [facility] [place] [address] Care Team Providers Care Dye House Wheel Operator Name Role Phone Monica Tellez AIR SAMPLING AND MONITORING-DISTRICT COMMERCIAL SUPERINTENDENT Primary Care Provi cristobal Ian Pollock MD Primary Care Provider [phone] Ian Pollock MD Primary Care Provider [phone] Ian Pollock MD Primary Care Provider [phone] Ian Pollock MD Primary Care Provider [phone] Ian Pollock MD Primary Care Provider [phone] Katina Casiano DO Unavailable [phone] Xavi ACOSTA MD, Fred R Primary Care Provider + Katina Casiano DO Unavailable [phone] Tracey Ang Unavailable Unavailable Belkis Angel AIR SAMPLING AND MONITORING-DISTRICT COMMERCIAL SUPERINTENDENT Primary Care Provider + Natalie Baum Primary Care Provider [phone] Reason for Visit * Reason Onset Date Comments General 11/12/2019 Encounter Details Date Type Department Care Team (Late st Contact Info) Description 11/12/2019 Telephone [facility] General Internal Medicine [address] [place] [address] Monica Tellez, AIR SAMPLING AND MONITORING-DISTRICT COMMERCIAL SUPERINTENDENT [address] [facility] [place] [address] General Social History Tobacco Use Types Packs/Day [...] on file 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 He was upset that I told him to ask his pulmonary doctor to order low dose CT since pulmonary was the one who usually ordered this. MARISOL Díaz RIAL HANDLER LOADER * Telephone Encounter - Nadeem Hancock - 11/12/2019 1:07 PM CST Pt called to request to be released from the provider's care. Caller stated that the provider has done a couple of things to rub him the wrong way, and he would like another provider. Pt provided call back number [phone] Message routed to provider for review and assistance RIAL HANDLER LOADER documented in this encounter Plan of Treatment [...] on filedocumented in this encounter Care Teams Dye House Wheel Operator Relationship Specialty Start Date End Date Monica Tellez APRN-DISTRICT COMMERCIAL SUPERINTENDENT PCP - General 07/03/19 11/13/19 Ian Pollock MD PCP - General 11/14/19 12/12/19 Ian Pollock MD PCP - General 12/13/19 05/25/20 Ian Pollock MD PCP - General 05/26/20 06/15/20 Ian Pollock MD [address] [place] [address] PCP - General 07/31/20 08/20/20 Ian Pollock MD [address] DIV OF [place] [address] PCP - General 08/21/20 05/29/23 Jameel Hurley III, MD [address] DIV OF [facility] [place] [phone] PCP - General Internal Medicine 06/05/23 08/28/23 Belkis Angel, AIR SAMPLING AND MONITORING-DISTRICT COMMERCIAL SUPERINTENDENT [address] [phone] PCP - General Nurse Practitioner 08/29/23 05/05/24 Natalie Baum [address] [place] [address] PCP - General 05/06/24 Katina Casiano DO [address] DIV OF [facility] INTERNAL MEDICINE [place], [place] Resident - PCP Internal Medicine 08/10/22 05/29/23 Katina Casiano DO [address] DIV OF [facility] INTERNAL MEDICINE [place], [place] Hospitalist 06/05/23 Tracey Ang PA [address] DIV OF [facility] [place] [address] Physician Medical Billing Associate 08/15/23 documented as of this encounter
--- OUTSIDE RECORDS SUMMARY | 2025-10-24 17:34 | XMS_ITS | Encounter Summary ---
Author Organization [facility] Address [address] [place] [address] Care Team Providers Care Graphic Art Sales Representative Name Role Phone Ian Pollock MD Primary Care Provider [phone] Katina Casiano DO Unavailable [phone] Xavi ACOSTA MD, Jameel R Primary Care Provider + Katina Casiano DO Unavailable [phone] Tracey Ang PA Unavailable Unavailable Belkis Angel HEAD CHOPPER-AGRICULTURAL ENGINEER Primary Care Provider + Natalie Baum Primary Care Provider [phone] Encounter Details Date Type Department Care Team (Late st Contact Info) Description 02/18/2022 Telephone [facility] Pulmonary, Critical Care and Sleep Medicine [address] [place] [phone] Agnieszka Haas MD [address] [place] [address] Social History Tobacco Use Types Packs/Day Years [...] on file 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 Patient Call Back number: [phone] documented in this encounter Plan of Treatment [...] on filedocumented in this encounter Care Teams Graphic Art Sales Representative Relationship Specialty Start Date End Date Ian Pollock MD [address] DIV [place] [address] PCP - General 08/21/20 05/29/23 Jameel Hurley III, MD [address] DIV OF [facility] [place] [phone] PCP - General Internal Medicine 06/05/23 08/28/23 Belkis Angel, HEAD CHOPPER-AGRICULTURAL ENGINEER [address] [phone] PCP - General Nurse Practitioner 08/29/23 05/05/24 Natalie Baum [address] [place] [address] PCP - General 05/06/24 Katina Casiano DO [address] DIV OF [facility] INTERNAL MEDICINE [place], [place] Resident - PCP Internal Medicine 08/10/22 05/29/23 Katina Casiano DO [address] DIV OF [facility] INTERNAL MEDICINE [place], [place] Hospitalist 06/05/23 Tracey Ang PA [address] DIV OF [facility] [place] [address] Physician Nutrition Aide 08/15/23 documented as of this encounter
--- OUTSIDE RECORDS SUMMARY | 2025-10-24 17:34 | XMS_ITS | Encounter Summary ---
Author Organization [facility] Address [address] [place] [address] Care Team Providers Care Division Head Name Role Phone Monica Tellez INTEGRATIVE MEDICINE PHYSICIAN-CONSUMER MARKETING SPECIALIST Primary Care Provi cristobal Ian Pollock MD Primary Care Provider [phone] Ian Pollock MD Primary Care Provider [phone] Ian Pollock MD Primary Care Provider [phone] Ian Pollock MD Primary Care Provider [phone] Ian Pollock MD Primary Care Provider [phone] Katina Casiano DO Unavailable Xavi ACOSTA MD, Fred R Primary Care Provider + Katina Casiano DO Unavailable [phone] Tracey Ang Unavailable Unavailable Belkis Angel INTEGRATIVE MEDICINE PHYSICIAN-CONSUMER MARKETING SPECIALIST Primary Care Provider + Natalie Baum Primary Care Provider [phone] Reason for Visit * Reason Onset Date Comments Appointment 09/11/2019 Encounter Details Date Type Department Care Team (Late st Contact Info) Description 09/11/2019 Telephone [facility] General Internal Medicine [address] [address] Monica Tellez, INTEGRATIVE MEDICINE PHYSICIAN-CONSUMER MARKETING SPECIALIST [address] [facility] [address] [facility] INTERNAL [place] [address] Appointment Social History Tobacco Use Types Packs/Day [...] on file 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 Gender Identity Not on file Sexual [...] disconnected Called again warm transfer to scheduling GRATION SOFTWARE DEVELOPER documented in this encounter Plan of [...] on filedocumented in this encounter Care Teams Division Head Relationship Specialty Start Date End Date Monica Tellez, INTEGRATIVE MEDICINE PHYSICIAN-CONSUMER MARKETING SPECIALIST PCP - General 07/03/19 11/13/19 Ian Pollock MD PCP - General 11/14/19 12/12/19 Ian Pollock MD PCP - General 12/13/19 05/25/20 Ian Pollock MD PCP - General 05/26/20 06/15/20 Ian Pollock MD [address] DIV OF [facility] INTERNAL [place] [address] PCP - General 07/31/20 08/20/20 Ian Pollock MD [address] DIV OF [facility] INTERNAL [place] [address] PCP - General 08/21/20 05/29/23 Jameel Hurley III, MD [address] DIV OF [facility] INTERNAL [place] [address] PCP - General Internal Medicine 06/05/23 08/28/23 Belkis Angel, INTEGRATIVE MEDICINE PHYSICIAN-CONSUMER MARKETING SPECIALIST [address] [facility] [address] [place] [address] PCP - General Nurse Practitioner 08/29/23 05/05/24 Natalie Baum [address] [place] [address] PCP - General 05/06/24 Katina Casiano DO [address] DIV OF [facility] INTERNAL MEDICINE [place], [place] Resident - PCP Internal Medicine 08/10/22 05/29/23 Katina Casiano DO [address] DIV OF [facility] INTERNAL MEDICINE [place], [place] Hospitalist 06/05/23 Tracey Ang PA [address] DIV OF [facility] INTERNAL [place] [address] Physician Excavating Supervisor 08/15/23 documented as of this encounter
--- OUTSIDE RECORDS SUMMARY | 2025-10-24 17:34 | XMS_ITS | Clinical Summary ---
Author Organization [facility] Address [facility] access hospital[address] [place] [address] Care Team Providers Care Sightseeing Guide Name Role Phone Natalie Buam LE Primary Care Provider + [phone] Allergies Active Allergy Reactions Criticality Noted Date [...] drink = 0.6 oz pur e alcohol) [facility] Utilities Answer Date Recorded In the past 12 months has e [employer], [employer], oil, or water [employer] threatened to shut off services in your [...] any time in the past 12 m [facility], were you homeless or living in a custodial (including now)? No 01/19/2025 Sex and Gender [...] patient's age to complete this topic Insurance [employer] Advance Directives * Full Code (Latest Code Status on File) Date Activated Date Inactivated Comments 01/20/2025 5:09 AM 01/21/2025 6:55 PM Care Teams Sightseeing Guide Relationship Specialty Start Date End Date Natalie Baum NP [address] [place] [address] PCP - General FAMILY PRACTICE 01/19/25
--- OUTSIDE RECORDS SUMMARY | 2025-10-24 17:34 | XMS_ITS | Encounter Summary ---
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 Name Role Phone Monica Tellez RAT EXTERMINATOR-FLIGHT DATA TECHNICIAN Primary Care Provi cristobal Ian Pollock MD Primary Care Provider [phone] Ian Pollock MD Primary Care Provider [phone] Ian Pollock MD Primary Care Provider [phone] Ian Pollock MD Primary Care Provider [phone] Ian Pollock MD Primary Care Provider [phone] Katina Casiano DO Unavailable [phone] Xavi ACOSTA MD, Fred R Primary Care Provider + Katina Casiano DO Unavailable [phone] Tracey Ang Unavailable Unavailable Belkis Angel RAT EXTERMINATOR-FLIGHT DATA TECHNICIAN Primary Care Provider + Natalie Baum Primary Care Provider [phone] Reason for Visit * Reason Onset Date Comments Forms/questionnaires 07/12/2019 [place] Encounter Details Date Type Department Care Team (Late st Contact Info) Description 07/12/2019 Telephone [facility] General Internal Medicine [address] [facility] [address] [place] [address] Monica Tellez RAT EXTERMINATOR-FLIGHT DATA TECHNICIAN [address] [place] [address] Forms/questionnaires ([employer] transportation) Social History Tobacco Use [...] on file 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 Answer Date of Assessment Author No 11/05/2015 3:52 AM Columba Leavtit RN * Is person blind or have [...] update on forms for transportation. Please advise. [phone] * Telephone Encounter - Shari Silvestre RN - 07/12/2019 1:11 PM CDT [facility] transportation form on your shelf. * Telephone Encounter - Hawa Allen - 07/12/2019 9:34 AM CDT Pt calling in to inform office that paperwork is on it's way from [place] concerning Medicare rides so pt can get transportation to and from [facility] appts. CB# [phone] Routed to [facility] Nurse Communication for further review documented in this encounter Plan of Treatment Not on file documented as of this encounter Visit Diagnoses Not on filedocumented in this encounter Care Teams Box Truck Owner Operator Relationship Specialty Start Date End Date Monica Tellez APRN-FLIGHT DATA TECHNICIAN PCP - General 07/03/19 11/13/19 Ian Pollock MD PCP - General 11/14/19 12/12/19 Ian Pollock MD PCP - General 12/13/19 05/25/20 Ian Pollock MD PCP - General 05/26/20 06/15/20 Ian Pollock MD [address] DIV OF [facility] [place] [address] PCP - General 07/31/20 08/20/20 Ian Pollock MD [address] DIV OF [facility] [place] [address] PCP - General 08/21/20 05/29/23 Jameel Hurley III, MD [address] [place] [address] PCP - General Internal Medicine 06/05/23 08/28/23 Belkis Angel, RAT EXTERMINATOR-FLIGHT DATA TECHNICIAN [address] [place] [phone] PCP - General Nurse Practitioner 08/29/23 05/05/24 Natalie Baum [address] [place] [address] PCP - General 05/06/24 Katina Casiano DO [address] DIV OF [facility] INTERNAL MEDICINE [place], [place] Resident - PCP Internal Medicine 08/10/22 05/29/23 Katina Casiano DO [address] DIV OF [facility] INTERNAL MEDICINE [place], [place] Hospitalist 06/05/23 Tracey Ang PA [address] DIV OF [facility] [place] [address] Physician Sap Bobj Developer 08/15/23 documented as of this encounter
--- OUTSIDE RECORDS SUMMARY | 2025-10-24 17:34 | XMS_ITS | Clinical Summary ---
Author Organization [facility] Address [address] [place] [address] Care Team Providers Care Senior Warehouse Clerk Name Role Phone Matthew Mccabe MD Primary Care Prov ider Stan Meza MD Unavailable [phone] Natalie Baum NP Unavailable [phone] Allergies Active Allergy Reactions Criticality Noted [...] unit tablet Take 1 tablet by mouth couples therapist before breakfast 30 tablet 3 024 Active [...] Type Department Care Team Description 10/15/2025 Telephone [facility] Medicine Oncology [address] [place] [address] 5 [place] [address] Sasha Hernandes RN 10/09/2025 10:30 AM ASPHALT MIXING MACHINE OPERATOR Infusion [facility] - Infusion [address] [facility] Floor 5 [place] [address] Primary cancer of left lower lobe of lung (HCC) (Primary Dx) 10/09/2025 9:40 AM ASPHALT MIXING MACHINE OPERATOR Office Visit [facility] Medicine Oncology [address] [place] [phone] Stan Meza MD Primary cancer of left lower lobe of lung (HCC) (Primary Dx); Metastasis to bone; Prophylaxis for chemotherapy-induce d neutropenia 10/09/2025 9:00 AM ASPHALT MIXING MACHINE OPERATOR - 10/09/2025 11:59 PM ASPHALT MIXING MACHINE OPERATOR Hospital Encounter [facility] Rad[facility] [address] [place] [address] Stan Meza MD Metastasis to bone; Primary cancer of left lower lobe of lung (HCC) Discharge Disposition: Discharge to home or self care 10/09/2025 8:45 AM ASPHALT MIXING MACHINE OPERATOR Clinical Support [facility] - Lab Collection [address] [place] [address] Metastasis to bone; Primary cancer of left lower lobe of lung (HCC) 10/09/2025 Documentation [facility] Nutrition Counseling 1 [place] [address] 10/06/2025 Social Work [facility] Medicine Oncology [address] [place] [phone] Sarah Brunner LCSW 10/06/2025 Telephone [facility] Medicine Oncology [address] [place] [phone] Sasha Hernandes RN 10/02/2025 Documentation [facility] Medicine Oncology [address] [place] [phone] Sarah Brunner, AIR AND WATER FILLER 09/30/2025 Social Work [facility] [address] [place] [phone] Sarah Brunner, AIR AND WATER FILLER 09/30/2025 Telephone [facility] [address] [place] [phone] Maddy Freire, ALYX 09/23/2025 Telephone [facility] [address] [place] [phone] Janice Kilgore CMA 09/22/2025 Telephone [facility] [address] [place] [phone] Sasha Hernandes RN 09/18/2025 11:00 AM ASPHALT MIXING MACHINE OPERATOR Infusion [facility] - Infusion [address] [place] [address] Prophylaxis for chemotherapy-induce d neutropenia (Primary Dx); Metastasis to bone; Primary cancer of left lower lobe of lung (HCC) 09/18/2025 9:00 AM ASPHALT MIXING MACHINE OPERATOR Office Visit [facility] [address] [place] [phone] Shari Quintana NP Metastasis to bone (Primary Dx); Primary cancer of left lower lobe of lung (HCC); Prophylaxis for chemotherapy-induce d neutropenia; Nicotine dependence with current use 09/18/2025 8:00 AM ASPHALT MIXING MACHINE OPERATOR Clinical Support [facility] - Lab Collection [address] [place] [address] Metastasis to bone; Primary cancer of left lower lobe of lung (HCC); Prophylaxis for chemotherapy-induce d neutropenia 09/18/2025 Documentation [facility] Nutrition Counseling 1 [place] [address] 09/15/2025 8:44 AM ASPHALT MIXING MACHINE OPERATOR - 09/15/2025 11:59 PM ASPHALT MIXING MACHINE OPERATOR Hospital Encounter [facility] Radiology [place] [place] [address] [place] [address] Primary cancer of left lower lobe of lung (HCC) Discharge Disposition: Discharge to home or self care 09/11/2025 Social Work [facility] Medicine Oncology [address] [place] [phone] Sarah Brunner, AIR AND WATER FILLER 09/10/2025 Telephone [facility] Radiology 1 [place] [address] Tg Millan RN 09/09/2025 Social Work [facility] Medicine Oncology [address] [place] [phone] Sarah Brunner, AIR AND WATER FILLER 08/28/2025 11:30 AM CDT Infusion [facility] - Infusion [address] [place] [address] 5 [place] [address] Prophylaxis for chemotherapy-induce d neutropenia (Primary Dx); Metastasis to bone; Primary cancer of left lower lobe of lung (HCC) 08/28/2025 9:40 AM CDT Office Visit [facility] Medicine Oncology [address] [place] [phone] Stan Meza MD Primary cancer of left lower lobe of lung (HCC) (Primary Dx); Metastasis to bone; Prophylaxis for chemotherapy-induce d neutropenia 08/28/2025 8:45 AM CDT Clinical Support [facility] - Lab Collection [address] [place] [address] 5 [place] [address] Metastasis to bone; Primary cancer of left lower lobe of lung (HCC); Prophylaxis for chemotherapy-induce d neutropenia 08/28/2025 8:30 AM CDT Lab [facility] Medicine Oncology Lab [address] [place] [phone] Metastasis to bone; Primary cancer of left lower lobe of lung (HCC); Prophylaxis for chemotherapy-induce d neutropenia 08/28/2025 Documentation [facility] Nutrition Counseling [address] [place] [phone] 08/25/2025 Documentation [facility] Medicine Oncology [address] [place] [address] [address] [place] [phone] Carolyn Mckenna, AIR AND WATER FILLER 08/22/2025 Telephone [facility] Medicine Oncology [address] [place] [address] 5 [place] [phone] Sasha Hernandes RN 08/21/2025 9:00 AM CDT Lab [facility] - Lab Collection [address] [facility] Floor 5 [place] [address] Metastasis to bone; Primary cancer of left lower lobe of lung (HCC); Prophylaxis for chemotherapy-induce d neutropenia 08/21/2025 7:24 AM CDT - 08/21/2025 11:59 PM CDT [facility] Radiology [facility] [address] [place] [phone] Stan Meza MD Primary cancer of left lower lobe of lung (HCC) Discharge Disposition: Discharge to home or self care 08/18/2025 Documentation [facility] Medicine Oncology [address] [facility] [address] [place] [address] Carolyn Mckenna, AIR AND WATER FILLER 08/01/2025 9:00 AM CDT Infusion [facility] - Infusion [address] [place] [address] Floor 5 [place] [address] Metastasis to bone (Primary Dx); Primary cancer of left lower lobe of lung (HCC); Prophylaxis for chemotherapy-induce d neutropenia 08/01/2025 Orders Only [facility] Medicine Oncology [address] [place] [address] 5 [place] [phone] Sasha Hernandes, RN 08/01/2025 Telephone [facility] Medicine Oncology [address] [place] [phone] Sasha Hernandes, RN 08/01/2025 Social Work [facility] Medicine Oncology [address] [place] [address] Floor 1, [address] [place] [phone] Megan Parish, AIR AND WATER FILLER 07/31/2025 12:30 PM CDT Infusion [facility] - Infusion [address] [place] [address] Floor 5 [place] [address] Primary cancer of left lower lobe of lung (HCC) (Primary Dx); Metastasis to bone; Prophylaxis for chemotherapy-induce d neutropenia 07/31/2025 11:20 AM CDT Office Visit [facility] Medicine Oncology [address] [facility] Floor 5 [place] [phone] Shari Quintana, LE Primary cancer of left lower lobe of lung (HCC) (Primary Dx); Metastasis to bone; Prophylaxis for chemotherapy-induce d neutropenia 07/31/2025 10:30 AM CDT Lab [facility] - Lab Collection [address] [facility] 5 [place] [address] Metastasis to bone; Primary cancer of left lower lobe of lung (HCC); Prophylaxis for chemotherapy-induce d neutropenia 07/31/2025 Documentation [facility] Nutrition Counseling 1 [place] [address] from Last 3 Months [...] vative Free, Intramuscular 08/23/2024 Influenza, Unspecified 08/13/2020,11/02/2015 [place] ([employer]) SARS-CoV-2 Vaccination 01/17/2021 Pneumococcal Conjugate Pcv20 [...] on file Legal Sex Male 6:04 PM ASPHALT MIXING MACHINE OPERATOR Gender Identity Not on file Sexual Orientation Not on file Last Filed Vital Signs Vital Sign Reading Time Taken Comments Blood Pressure 116/81 10/09/2025 10:00 AM ASPHALT MIXING MACHINE OPERATOR Pulse 103 10/09/2025 10:00 AM ASPHALT MIXING MACHINE OPERATOR Temperature 36.4 C (97.5 F) 10/09/2025 10:00 AM ASPHALT MIXING MACHINE OPERATOR Respiratory Rate 18 10/09/2025 10:00 AM ASPHALT MIXING MACHINE OPERATOR Oxygen Saturation 100% 10/09/2025 10:00 AM ASPHALT MIXING MACHINE OPERATOR Inhaled Oxygen Concentration - - Weight 89.8 kg (198 lb) 10/09/2025 10:00 AM ASPHALT MIXING MACHINE OPERATOR Height 175.3 cm (5' 9) 09/15/2025 9:20 AM ASPHALT MIXING MACHINE OPERATOR Body Mass Index 29.24 09/15/2025 9:20 AM ASPHALT MIXING MACHINE OPERATOR Plan of Treatment Health Maintenance Due [...] Completed 05/29/2025 Medical Devices Implanted Type Area Lens Coating Technician Device Identifier Shelf Expiration Date Model / Serial / Lot Rigth Knee Replacement Right: Knee [employer] Xcela Power Port 8fr [id number] - [id number] Implanted:Qty: 1 on 09/15/2025 by Manjit Jeong MD at [facility] [employer] 01/26/2030 [id number] / / [id number] Procedures Procedure Name Priority Date/Time Associated Diagnosis Comments URINALYSIS AND REFLEX TO MICROSCOPIC AND CULTURE Routine 10/09/2025 11:12 AM ASPHALT MIXING MACHINE OPERATOR Primary cancer of left lower lobe of lung (HCC) [id number] Routine 10/09/2025 11:10 AM ASPHALT MIXING MACHINE OPERATOR Primary cancer of left lower lobe of lung (HCC) CT CHEST ABDOMEN PELVIS W CONTRAST Schedule Routine, Read Routine (OP Routine) 10/09/2025 9:47 AM ASPHALT MIXING MACHINE OPERATOR Metastasis to bone Primary cancer of left lower lobe of lung (HCC) EGFR STAT 10/09/2025 8:57 AM ASPHALT MIXING MACHINE OPERATOR Metastasis to bone Primary cancer of left lower lobe of lung (HCC) DIFFERENTIAL AUTO Routine 10/09/2025 8:5 7 AM ASPHALT MIXING MACHINE OPERATOR Metastasis to bone Primary cancer of left lower lobe of lung (HCC) CBC WITH AUTO DIFFERENTIAL Routine 10/09/2025 8:57 AM ASPHALT MIXING MACHINE OPERATOR Metastasis to bone Primary cancer of left lower lobe of lung (HCC) COMPREHENSIVE METABOLIC PANEL STAT 10/09/2025 8:57 AM ASPHALT MIXING MACHINE OPERATOR Metastasis to bone Primary cancer of left lower lobe of lung (HCC) EGFR STAT 09/18/2025 8:30 AM ASPHALT MIXING MACHINE OPERATOR Metastasis to bone Primary cancer of left lower lobe of lung (HCC) Prophylaxis for chemotherapy-induc ed neutropenia DIFFERENTIAL AUTO Routine 09/18/2025 8:3 0 AM ASPHALT MIXING MACHINE OPERATOR Metastasis to bone Primary cancer of left lower lobe of lung (HCC) Prophylaxis for chemotherapy-induc ed neutropenia CBC WITH AUTO DIFFERENTIAL Routine 09/18/2025 8:30 AM ASPHALT MIXING MACHINE OPERATOR Metastasis to bone Primary cancer of left lower lobe of lung (HCC) Prophylaxis for chemotherapy-induc ed neutropenia COMPREHENSIVE METABOLIC PANEL STAT 09/18/2025 8:30 AM ASPHALT MIXING MACHINE OPERATOR Metastasis to bone Primary cancer of left lower lobe of lung (HCC) Prophylaxis for chemotherapy-induc ed neutropenia PORT PLACEMENT CHEST >5 YEARS Schedule Routine, Read Routine (OP Routine) 09/15/2025 10:30 AM ASPHALT MIXING MACHINE OPERATOR Primary cancer of left lower lobe [...] culture Urine, clean voided (10/09/2025 11:12 AM ASPHALT MIXING MACHINE OPERATOR) Color, ur Straw Yellow Clarity, ur Clear Clear [facility] Specific gravity, ur >1.042(A) 1.003 - 1.030 [facility] pH, urine 7.0 [facility] Comment: Interpretive Data U rine pH is affected by diet, medications, systemic acid-base disturbances, and renal tubular function. pH may affect urinary stone formation. For example, urine pH below 6.0 may help reduce the tendency for calcium phosphate stones and pH greater than 6.0 may reduce the tendency for uric acid stone formation. Source: [employer] Current Interpretive Data was last revised on 2017 Protein, ur ql Trace Negative [facility] Glucose, ur ql Negative Negative [facility] Ketones, ur Negative Negative [facility] Bilirubin, ur Negative Negative [facility] Blood, ur Negative Negative [facility] Urobilinogen, ur <2.0 <2.0 [facility] Nitrite, ur Negative Negative [facility] Leukocyte esterase, ur Negative [facility] UA reflex comment Reflex conditions for microscopic UA and culture not met. [facility] Urine, clean voided 10/09/2025 11:12 AM ASPHALT MIXING MACHINE OPERATOR 10/09/2025 12:58 PM ASPHALT MIXING MACHINE OPERATOR Stan Meza MD LAB MICROBIOLOGY - GENERA L ORDERABLES Final Result Performing Organization Address [facility] Co de Phone Number [facility] Department [place] [address] * [id number] (10/09/2025 11:10 AM ASPHALT MIXING MACHINE OPERATOR) MSI-HIGH Not detected 10/17/2025 12:00 AM ASPHALT MIXING MACHINE OPERATOR [facility] TMB 9.49 mut/Mb 10/17/2025 12:00 AM ASPHALT MIXING MACHINE OPERATOR [facility] TUMOR FRACTION 6.7% 10/17/2025 12:00 AM ASPHALT MIXING MACHINE OPERATOR [facility] Blood specimen (specimen) Venous blood specimen / Unknown 10/09/2025 11:10 AM ASPHALT MIXING MACHINE OPERATOR 10/10/2025 4:01 PM ASPHALT MIXING MACHINE OPERATOR Narrative This result has genomic variants that were not included in this document. Stan Meza MD LAB GENETIC TESTING Final Result Performing Organization Address [facility] Co de Phone Number [facility] [address] [place] [address] [phone] [facility] [address] [place] [address] * CT Chest Abdomen Pelvis W Contrast (10/09/2025 9:47 AM ASPHALT MIXING MACHINE OPERATOR) Anatomical Region Laterality Modality Body N/A Computed Tomogra phy 10/09/2025 10:0 3 AM ASPHALT MIXING MACHINE OPERATOR Impressions 10/09/2025 10:03 AM ASPHALT MIXING MACHINE OPERATOR Worsening metastatic disease with increase mediastinal and hilar lymphadenopathy. Increased size right lower lobe nodule. Slight increase in left adrenal metastasis. Electronically signed by: Angel Almanza M.D. Narrative 10/09/2025 10:03 AM ASPHALT MIXING MACHINE OPERATOR EXAMINATION: Computed tomography of the chest abdomen [...] Angel Almanza M.D. us Stan Meza MD [facility] CT PROCEDURES Final R esult * eGFR (10/09/2025 8:57 AM ASPHALT MIXING MACHINE OPERATOR) eGFR >90 >=60 mL/min/1. 73 m2 [...] last reviewed 2021. Blood 10/09/2025 8:57 AM ASPHALT MIXING MACHINE OPERATOR 10/09/2025 9:01 AM ASPHALT MIXING MACHINE OPERATOR us Stan Meza MD LAB BLOOD ORDERABLES Yolette banda Result [facility] Department [place] [address] * (ABNORMAL) Differential, auto (10/09/2025 8:57 AM ASPHALT MIXING MACHINE OPERATOR) Neutrophil abs 2.98 1.50 - 6.50 K/cumm Comment:Testing performed by : [facility], [address] [place] [phone] Lymphocyte abs 0.71(L) 0.80 - 3.30 K/cumm [facility] Comment:Testing performed by : [facility], [address] [place] [phone] Monocyte abs 0.66 0.20 - 0.80 K/cumm [facility] Comment:Testing performed by : [facility], [address] [place] [phone] Eosinophil abs 0.08 0.00 - 0.50 K/cumm [facility] Comment:Testing performed by : [facility], [address] [place] [phone] Basophil abs 0.06 0.00 - 0.10 K/cumm [facility] Comment:Testing performed by : [facility], [address] [place] [phone] Neutrophil pct 66.3 % [facility] Comment: Interpretive Data Percent cell count reference ranges are not reported, since discordance with absolute values may lead to misinterpretation of CBC data. Current Interpretive Data was last revised on 2018. Testing performed by: [facility], [address] [place], [place] [phone] Lymphocyte pct 15.9 % [facility] Comment: Interpretive Data Percent cell count reference ranges are not reported, since discordance with absolute values may lead to misinterpretation of CBC data. Current Interpretive Data was last revised on 2018. Testing performed by: [facility], [address] [place] [address] Monocyte pct 14.8 % [facility] Comment: Interpretive Data Percent cell count reference ranges are not reported, since discordance with absolute values may lead to misinterpretation of CBC data. Current Interpretive Data was last revised on 2018. Testing performed by: [facility], [address] [place], [place] [phone] Eosinophil pct 1.7 % [facility] Comment: Interpretive Data Percent cell count reference ranges are not reported, since discordance with absolute values may lead to misinterpretation of CBC data. Current Interpretive Data was last revised on 2018. Testing performed by: [facility], [address] [place] [phone] Basophil pct 1.4 % [facility] Comment: Interpretive Data Percent cell count reference ranges are not reported, since discordance with absolute values may lead to misinterpretation of CBC data. Current Interpretive Data was last revised on 2018. Testing performed by: [facility], [address] [place] [phone] Blood 10/09/2025 8:57 AM ASPHALT MIXING MACHINE OPERATOR 10/09/2025 8:57 AM ASPHALT MIXING MACHINE OPERATOR us Stan Meza MD LAB BLOOD ORDERABLES Yolette veronika Result [facility] Department [place] [address] * (ABNORMAL) CBC with auto differential (10/09/2025 8:57 AM ASPHALT MIXING MACHINE OPERATOR) WBC 4.49 3.80 - 9.90 K/cumm Comment:Testing performed by : [facility], [address] [place] [address] Hgb 9.5(L) 13.0 - 17.5 g/dL [facility] Comment:Testing performed by : [facility], [address] [place] [address] Hct 29.9(L) 38.9 - 50.3 % [facility] Comment:Testing performed by : [facility], [address] [place] [address] Plt 246 150 - 400 K/cumm [facility] Comment:Testing performed by : [facility], [address] [place] [address] MPV 6.6(L) 6.8 - 10.4 fL [facility] Comment:Testing performed by : [facility], [address] [place] [address] RBC 3.44(L) 4.30 - 5.80 M/cumm [facility] Comment:Testing performed by : [facility], [address] [place] [address] MCV 87.0 81.3 - 96.4 fL [facility] Comment:Testing performed by : [facility], [address] [place] [address] MCH 27.7 27.1 - 33.3 pg [facility] Comment:Testing performed by : [facility], [address] [place] [address] MCHC 31.9(L) 32.3 - 35.7 g/dL [facility] Comment:Testing performed by : [facility], [address] [place] [phone] RDW CV 17.4(H) 11.1 - 14.9 % [facility] Comment:Testing performed by : [facility], [address] [place] [phone] NRBC abs 0.00 0.00 - 0.01 K/cumm [facility] Comment:Testing performed by : [facility], [address] [place] [phone] Blood 10/09/2025 8:57 AM ASPHALT MIXING MACHINE OPERATOR 10/09/2025 8:57 AM ASPHALT MIXING MACHINE OPERATOR us Stan Meza MD LAB BLOOD ORDERABLES Yolette banda Result [facility] Department [place] [address] * (ABNORMAL) Comprehensive metabolic panel (10/09/2025 8:57 AM ASPHALT MIXING MACHINE OPERATOR) Sodium 133(L) 135 - 145 mmol/L Potassium, pl 4.0 3.3 - 4.9 mmol/L [facility] Chloride 100 97 - 110 mmol/L [facility] CO2 28 22 - 32 mmol/L [facility] Anion gap 5 2 - 15 mmol/L [facility] BUN 5(L) 6 - 25 mg/dL [facility] Creatinine 0.64(L) 0.80 - 1.30 mg/dL [facility] Glucose 98 70 - 199 mg/dL [facility] [...] 2022. Calcium 8.8 8.5 - 10.3 mg/dL [facility] Bilirubin, total 0.4 0.1 - 1.2 mg/dL [facility] Protein, pl 6.4(L) 6.5 - 8.5 g/dL [facility] Albumin 3.6 3.5 - 5.0 g/dL [facility] Alk phos 108 40 - 130 Units/L [facility] ALT 10 7 - 55 Units/L [facility] AST 16 10 - 50 Units/L [facility] Blood 10/09/2025 8:57 AM ASPHALT MIXING MACHINE OPERATOR 10/09/2025 9:01 AM ASPHALT MIXING MACHINE OPERATOR us Stan Meza MD LAB BLOOD ORDERABLES Yolette banda Result [facility] Department [place] [address] * eGFR (09/18/2025 8:30 AM ASPHALT MIXING MACHINE OPERATOR) eGFR >90 >=60 mL/min/1. 73 m2 [...] last reviewed 2021. Blood 09/18/2025 8:30 AM ASPHALT MIXING MACHINE OPERATOR 09/18/2025 8:35 AM ASPHALT MIXING MACHINE OPERATOR us Stan Meza MD LAB BLOOD ORDERABLES Yolette banda Result [facility] Department [place] [address] * (ABNORMAL) Differential, auto (09/18/2025 8:30 AM ASPHALT MIXING MACHINE OPERATOR) Neutrophil abs 2.61 1.50 - 6.50 K/cumm Comment:Testing performed by : [facility], [address] [place] [address] Lymphocyte abs 0.87 0.80 - 3.30 K/cumm [facility] Comment:Testing performed by : [facility], [address] [place], [place] [phone] Monocyte abs 0.86(H) 0.20 - 0.80 K/cumm [facility] Comment:Testing performed by : [facility], [address] [place] [address] Eosinophil abs 0.17 0.00 - 0.50 K/cumm CHEMA RESENDIZ Comment:Testing performed by : [facility], [address] [place] [phone] Basophil abs 0.07 0.00 - 0.10 K/cumm CERNER BJ Comment:Testing performed by : [facility], [address] [place] [phone] Neutrophil pct 57.0 % CERNER BJ Comment: Interpretive Data Percent cell count reference ranges are not reported, since discordance with absolute values may lead to misinterpretation of CBC data. Current Interpretive Data was last revised on 2018. Testing performed by: [facility], [address] [place] [phone] Lymphocyte pct 19.1 % CERNER BJ Comment: Interpretive Data Percent cell count reference ranges are not reported, since discordance with absolute values may lead to misinterpretation of CBC data. Current Interpretive Data was last revised on 2018. Testing performed by: [facility], [address] [place] [address] Monocyte pct 18.8 % CHEMA RESENDIZ Comment: Interpretive Data Percent cell count reference ranges are not reported, since discordance with absolute values may lead to misinterpretation of CBC data. Current Interpretive Data was last revised on 2018. Testing performed by: [facility], [address] [place] [phone] Eosinophil pct 3.6 % CHEMA RESENDIZ Comment: Interpretive Data Percent cell count reference ranges are not reported, since discordance with absolute values may lead to misinterpretation of CBC data. Current Interpretive Data was last revised on 2018. Testing performed by: [facility], [address] [place] [phone] Basophil pct 1.5 % CHEMA RESENDIZ Comment: Interpretive Data Percent cell count reference ranges are not reported, since discordance with absolute values may lead to misinterpretation of CBC data. Current Interpretive Data was last revised on 2018. Testing performed by: [facility], [address] [place] [phone] Blood 09/18/2025 8:30 AM [employer]HALT MIXING MACHINE OPERATOR 09/18/2025 8:34 AM ASPHALT MIXING MACHINE OPERATOR us Stan Meza MD LAB BLOOD ORDERABLES Yolette veronika Result [facility] Department [place] [address] * (ABNORMAL) CBC with auto differential (09/18/2025 8:30 AM ASPHALT MIXING MACHINE OPERATOR) WBC 4.57 3.80 - 9.90 K/cumm Comment:Testing performed by : [facility], [address] [place] [phone] Hgb 10.0(L) 13.0 - 17.5 g/dL CHEMA RESENDIZ Comment:Testing performed by : [facility], [address] [place] [phone] Hct 30.8(L) 38.9 - 50.3 % CHEMA RESENDIZ Comment:Testing performed by : [facility], [address] [place] [address] Plt 242 150 - 400 K/cumm CERALDO BJ Comment:Testing performed by : [facility], [address] [place] [address] MPV 6.8 6.8 - 10.4 fL CERALDO BJ Comment:Testing performed by : [facility], [address] [place] [address] RBC 3.66(L) 4.30 - 5.80 M/cumm CERALDO BJ Comment:Testing performed by : [facility], [address] [place] [address] MCV 84.0 81.3 - 96.4 fL CERALDO BJ Comment:Testing performed by : [facility], [address] [place] [address] MCH 27.3 27.1 - 33.3 pg CERALDO BJ Comment:Testing performed by : [facility], [address] [place] [address] MCHC 32.5 32.3 - 35.7 g/dL CERALDO BJ Comment:Testing performed by : [facility], [address] [place] [address] RDW CV 17.7(H) 11.1 - 14.9 % CERALDO BJ Comment:Testing performed by : [facility], [address] [place] [address] NRBC abs 0.00 0.00 - 0.01 K/cumm CERALDO BJ Comment:Testing performed by : [facility], [address] [place] [address] Blood 09/18/2025 8:30 AM ASPHALT MIXING MACHINE OPERATOR 09/18/2025 8:34 AM ASPHALT MIXING MACHINE OPERATOR us Stan Meza MD LAB BLOOD ORDERABLES Yolette banda Result [facility] Department of Laboratories [place], [place] [id number] * (ABNORMAL) Comprehensive metabolic panel (09/18/2025 8:30 AM ASPHALT MIXING MACHINE OPERATOR) Sodium 135 135 - 145 mmol/L Potassium, pl 4.3 3.3 - 4.9 mmol/L [facility] Chloride 101 97 - 110 mmol/L [facility] CO2 27 22 - 32 mmol/L [facility] Anion gap 7 2 - 15 mmol/L [facility] BUN 6 6 - 25 mg/dL [facility] Creatinine 0.61(L) 0.80 - 1.30 mg/dL [facility] Glucose 102 70 - 199 mg/dL [facility] [...] 2022. Calcium 9.0 8.5 - 10.3 mg/dL [facility] Bilirubin, total 0.4 0.1 - 1.2 mg/dL [facility] Protein, pl 6.6 6.5 - 8.5 g/dL [facility] Albumin 3.8 3.5 - 5.0 g/dL [facility] Alk phos 106 40 - 130 Units/L [facility] ALT 10 7 - 55 Units/L [facility] AST 16 10 - 50 Units/L [facility] Blood 09/18/2025 8:30 AM ASPHALT MIXING MACHINE OPERATOR 09/18/2025 8:35 AM ASPHALT MIXING MACHINE OPERATOR us Stan Meza MD LAB BLOOD ORDERABLES Yolette banda Result [facility] Department [place] [address] * IR Port Placement Chest > 5 Years (09/15/2025 10:30 AM ASPHALT MIXING MACHINE OPERATOR) Anatomical Region Laterality Modality Chest N/A Radio Fluoroscop y 09/15/2025 10:3 4 AM ASPHALT MIXING MACHINE OPERATOR Impressions 09/15/2025 10:34 AM ASPHALT MIXING MACHINE OPERATOR Successful chest wall port placement. PLAN: The catheter is ready for immediate use. Please note that a power injectable port was placed. 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 Prior to beginning the procedure, [place] Protocol was used to confirm the patient's [...] was obtained. Prior to beginning the procedure, [place] Protocol was used to confirm the patient's [...] completed, removal can be scheduled by calling [facility] - [phone] [facility] - [phone] Electronically signed by: Lanie Philippe PA-C Stan Meza MD IMG IR PROCEDURES Final R esult * (ABNORMAL) Protime-INR (08/28/2025 11:15 AM CDT) PT 15.2(H) 10.2 - 13.5 sec INR 1.35(H) 0.90 - 1.20 [facility] Comment: Interpretive data Oral anticoagulant therapeutic [...] ORDERABLES Yolette l Result Performing Organization Address City/[facility] Co de Phone Number [facility] Department [place] [address] * eGFR (08/28/2025 9:15 AM CDT) eGFR [...] ORDERABLES Yolette l Result Performing Organization Address City/[facility]/ZIP Co de Phone Number [facility]MA RESEND[facility] Department [place] [address] * (ABNORMAL) Differential, auto (08/28/2025 9:15 AM CDT) Neutrophil abs 1.79 1.50 - 6.50 K/cumm Comment:Testing performed by : [facility], [address] [place] [phone] Lymphocyte abs 1.10 0.80 - 3.30 K/cumm CERNER BJH Comment:Testing performed by : [facility], [address] [place], [place] [phone] Monocyte abs 0.75 0.20 - 0.80 K/cumm CERNER [facility] Comment:Testing performed by : [facility], [address] [place], [place] [phone] Eosinophil abs 0.82(H) 0.00 - 0.50 K/cumm CERNER BJ Comment:Testing performed by : [facility], [address] [place], [place] [phone] Basophil abs 0.06 0.00 - 0.10 K/cumm CERNER BJ Comment:Testing performed by : [facility], [address] [place], [place] [phone] Neutrophil pct 39.6 % CERNER BJ Comment: Interpretive Data Percent cell count reference ranges are not reported, since discordance with absolute values may lead to misinterpretation of CBC data. Current Interpretive Data was last revised on 2018. Testing performed by: [facility], [address] [place] [address] Lymphocyte pct 24.4 % CERNER BJ Comment: Interpretive Data Percent cell count reference ranges are not reported, since discordance with absolute values may lead to misinterpretation of CBC data. Current Interpretive Data was last revised on 2018. Testing performed by: [facility], [address] [place] [address] Monocyte pct 16.6 % CERNER BJ Comment: Interpretive Data Percent cell count reference ranges are not reported, since discordance with absolute values may lead to misinterpretation of CBC data. Current Interpretive Data was last revised on 2018. Testing performed by: [facility], [address] [place] [address] Eosinophil pct 18.0 % CERNER [facility] Comment: Interpretive Data Percent cell count reference ranges are not reported, since discordance with absolute values may lead to misinterpretation of CBC data. Current Interpretive Data was last revised on 2018. Testing performed by: [facility], [address] [place] [phone] Basophil pct 1.3 % [facility]ERADLO [facility] Comment: Interpretive Data Percent cell count reference ranges are not reported, since discordance with absolute values may lead to misinterpretation of CBC data. Current Interpretive Data was last revised on 2018. Testing performed by: [facility], [address] [place] [phone] Blood 08/28/2025 9:15 AM CDT 08/28/2025 9:25 AM CDT us Stan Meza MD LAB BLOOD ORDERABLES Yolette banda Result [facility] Department [place] [address] * (ABNORMAL) CBC with auto differential (08/28/2025 9:15 AM CDT) WBC 4.52 3.80 - 9.90 K/cumm Comment:Testing performed by : [facility], [address] [place] [phone] Hgb 10.5(L) 13.0 - 17.5 g/dL CHEMA RESENDIZ Comment:Testing performed by : [facility], [address] [place] [address] Hct 32.5(L) 38.9 - 50.3 % CHEMA RESENDIZ Comment:Testing performed by : [facility], [address] [place] [phone] Plt 219 150 - 400 K/cumm CERALDO RESENDIZ Comment:Testing performed by : [facility], [address] [place] [address] MPV 7.4 6.8 - 10.4 fL [facility]MA RESENDIZ Comment:Testing performed by : [facility], [address] [place] [address] RBC 3.88(L) 4.30 - 5.80 M/cumm CHEMA RESENDIZ Comment:Testing performed by : [facility], [address] [place], [place] [phone] MCV 83.8 81.3 - 96.4 fL [facility] Comment:Testing performed by : [facility], [address] [place], [place] [phone] MCH 27.0(L) 27.1 - 33.3 pg [facility] Comment:Testing performed by : [facility], [address] [place], [place] [phone] MCHC 32.2(L) 32.3 - 35.7 g/dL [facility] Comment:Testing performed by : [facility], [address] [place], [place] [phone] RDW CV 18.9(H) 11.1 - 14.9 % [facility] Comment:Testing performed by : [facility], [address] [place], [place] [phone] NRBC abs 0.00 0.00 - 0.01 K/cumm [facility] Comment:Testing performed by : [facility], [address] [place], [place] [phone] Blood 08/28/2025 9:15 AM CDT 08/28/2025 9:25 AM CDT us Stan Meza MD LAB BLOOD ORDERABLES Yolette veronika Result [facility] Department [place] [address] * (ABNORMAL) Comprehensive metabolic panel (08/28/2025 9:15 AM CDT) Sodium 136 135 - 145 mmol/L Potassium, pl 4.2 3.3 - 4.9 mmol/L [facility] Chloride 103 97 - 110 mmol/L [facility] CO2 24 22 - 32 mmol/L [facility] Anion gap 9 2 - 15 mmol/L [facility] BUN 5(L) 6 - 25 mg/dL [facility] Creatinine 0.65(L) 0.80 - 1.30 mg/dL [facility] Glucose 94 70 - 199 mg/dL [facility] [...] mg/dL [facility] Bilirubin, total 0.3 0.1 - 1.2 mg/dL [facility] Protein, pl 6.9 6.5 - 8.5 g/dL [facility] Albumin 3.8 3.5 - 5.0 g/dL [facility] Alk phos 121 40 - 130 Units/L [facility] ALT 10 7 - 55 Units/L [facility] AST 16 10 - 50 Units/L [facility] Blood 08/28/2025 9:15 AM CDT 08/28/2025 9:21 AM CDT Stan Meza MD LAB BLOOD ORDERABLES Yolette banda Result [facility] Department [place] [address] * eGFR (08/21/2025 9:19 AM CDT) eGFR [...] ORDERABLES Yolette banda Result [facility] Department [place] [address] * Differential, auto (08/21/2025 9:19 AM CDT) Neutrophil abs 3.36 1.50 - 6.50 K/cumm Comment:Testing performed by : [facility], [address] [place] [phone] Lymphocyte abs 0.99 0.80 - 3.30 K/cumm [facility] RESENDIZ Comment:Testing performed by : [facility], [address] [place] [phone] Monocyte abs 0.68 0.20 - 0.80 K/cumm [facility]MA RESENDIZ Comment:Testing performed by : [facility], [address] [place] [phone] Eosinophil abs 0.02 0.00 - 0.50 K/cumm [facility] RESENDIZ Comment:Testing performed by : [facility], [address] [place] [phone] Basophil abs 0.08 0.00 - 0.10 K/cumm [facility] RESENDIZ Comment:Testing performed by : [facility], [address] [place] [phone] Neutrophil pct 65.6 % [facility] RESENDIZ Comment: Interpretive Data Percent cell count reference ranges are not reported, since discordance with absolute values may lead to misinterpretation of CBC data. Current Interpretive Data was last revised on 2018. Testing performed by: [facility], [address] [place] [address] Lymphocyte pct 19.3 % CERALDO [facility] Comment: Interpretive Data Percent cell count reference ranges are not reported, since discordance with absolute values may lead to misinterpretation of CBC data. Current Interpretive Data was last revised on 2018. Testing performed by: [facility], [address] [place], [place] [phone] Monocyte pct 13.3 % CERALDO [facility] Comment: Interpretive Data Percent cell count reference ranges are not reported, since discordance with absolute values may lead to misinterpretation of CBC data. Current Interpretive Data was last revised on 2018. Testing performed by: [facility], [address] [place] [address] Eosinophil pct 0.4 % [facility] Comment: Interpretive Data Percent cell count reference ranges are not reported, since discordance with absolute values may lead to misinterpretation of CBC data. Current Interpretive Data was last revised on 2018. Testing performed by: [facility], [address] [place] [phone] Basophil pct 1.5 % CERALDO [facility] Comment: Interpretive Data Percent cell count reference ranges are not reported, since discordance with absolute values may lead to misinterpretation of CBC data. Current Interpretive Data was last revised on 2018. Testing performed by: [facility], [address] [place] [phone] Blood 08/21/2025 9:19 AM CDT 08/21/2025 9:23 AM CDT us Stan Meza MD LAB BLOOD ORDERABLES Yolette banda Result [facility] Department [place] [address] * (ABNORMAL) CBC with auto differential (08/21/2025 9:19 AM CDT) WBC 5.13 3.80 - 9.90 K/cumm Comment:Testing performed by : [facility], [address] [place], [place] [phone] Hgb 10.7(L) 13.0 - 17.5 g/dL CERNER BJ Comment:Testing performed by : [facility], [address] [place], [place] [phone] Hct 33.5(L) 38.9 - 50.3 % CERNER BJ Comment:Testing performed by : [facility], [address] [place], [place] [phone] Plt 237 150 - 400 K/cumm CERNER BJ Comment:Testing performed by : [facility], [address] [place], [place] [phone] MPV 7.3 6.8 - 10.4 fL CERNER BJ Comment:Testing performed by : [facility], [address] [place] [address] RBC 3.99(L) 4.30 - 5.80 M/cumm CERNER BJ Comment:Testing performed by : [facility], [address] [place] [address] MCV 83.9 81.3 - 96.4 fL CERNER BJ Comment:Testing performed by : [facility], [address] [place] [address] MCH 26.8(L) 27.1 - 33.3 pg CERNER BJ Comment:Testing performed by : [facility], [address] [place] [address] MCHC 31.9(L) 32.3 - 35.7 g/dL CERNER BJ Comment:Testing performed by : [facility], [address] [place], [place] [phone] RDW CV 19.7(H) 11.1 - 14.9 % CERNER BJ Comment:Testing performed by : [facility], [address] [place] [address] NRBC abs 0.00 0.00 - 0.01 K/cumm [facility] Comment:Testing performed by : [facility], [address] [place] [phone] Blood 08/21/2025 9:19 AM CDT 08/21/2025 9:23 AM CDT Stan Meza MD LAB BLOOD ORDERABLES Yolette l Result [facility] [place] [address] * Phosphorus (08/21/2025 9:19 AM CDT) Pathologist [facility] Phosphorus, pl 2.7 2.3 - 4.5 mg/dL Blood 08/21/2025 9:19 AM CDT 08/21/2025 9:31 AM CDT Stan Meza MD LAB BLOOD ORDERABLES Yolette l Result Performing Organization Address City/[facility]/ZIP Co de Phone Number [facility] [place] [address] * Magnesium (08/21/2025 9:19 AM CDT) Pathologist [facility] Magnesium 1.8 1.4 - 2.5 mg/dL Blood 08/21/2025 9:19 AM CDT 08/21/2025 9:31 AM CDT Stan Meza MD LAB BLOOD [place] [address] * (ABNORMAL) Comprehensive metabolic panel (08/21/2025 9:19 AM CDT) Sodium 137 135 - 145 mmol/L Potassium, pl 4.0 3.3 - 4.9 mmol/L [facility] Chloride 104 97 - 110 mmol/L [facility] CO2 24 22 - 32 mmol/L [facility] Anion gap 9 2 - 15 mmol/L [facility] BUN 6 6 - 25 mg/dL [facility] Creatinine 0.62(L) 0.80 - 1.30 mg/dL [facility] Glucose 137 70 - 199 mg/dL [facility] [...] 2022. Calcium 8.9 8.5 - 10.3 mg/dL [facility] Bilirubin, total 0.6 0.1 - 1.2 mg/dL [facility] Protein, pl 6.8 6.5 - 8.5 g/dL [facility] Albumin 3.9 3.5 - 5.0 g/dL [facility] Alk phos 114 40 - 130 Units/L [facility] ALT 13 7 - 55 Units/L [facility] AST 18 10 - 50 Units/L [facility] Blood 08/21/2025 9:19 AM CDT 08/21/2025 9:31 AM CDT us Stan Meza MD LAB BLOOD ORDERABLES Yolette banda Result [facility] Department [place] [address] * CT Chest Abdomen Pelvis [...] MD LAB BLOOD ORDERABLES Yolette banda Result [facility] Department of Laboratories [place] [phone] * (ABNORMAL) Differential, auto (07/31/2025 11:17 AM CDT) Neutrophil abs 2.74 1.50 - 6.50 K/cumm Comment:Testing performed by : [facility], [address] [place] [address] Lymphocyte abs 1.32 0.80 - 3.30 K/cumm [facility] Comment:Testing performed by : [facility], [address] [place] [address] Monocyte abs 1.04(H) 0.20 - 0.80 K/cumm [facility] Comment:Testing performed by : [facility], [address] [place] [address] Eosinophil abs 0.19 0.00 - 0.50 K/cumm [facility] Comment:Testing performed by : [facility], [address] [place] [phone] Basophil abs 0.11(H) 0.00 - 0.10 K/cumm CERNER [facility] Comment:Testing performed by : [facility], [address] [place] [phone] Neutrophil pct 50.8 % [facility]ERALDO [facility] Comment: Interpretive Data Percent cell count reference ranges are not reported, since discordance with absolute values may lead to misinterpretation of CBC data. Current Interpretive Data was last revised on 2018. Testing performed by: [facility], [address] [place] [phone] Lymphocyte pct 24.4 % CERNER [facility] Comment: Interpretive Data Percent cell count reference ranges are not reported, since discordance with absolute values may lead to misinterpretation of CBC data. Current Interpretive Data was last revised on 2018. Testing performed by: [facility], [address] [place] [address] Monocyte pct 19.3 % [facility] Comment: Interpretive Data Percent cell count reference ranges are not reported, since discordance with absolute values may lead to misinterpretation of CBC data. Current Interpretive Data was last revised on 2018. Testing performed by: [facility], [address] [place] [phone] Eosinophil pct 3.5 % [facility] Comment: Interpretive Data Percent cell count reference ranges are not reported, since discordance with absolute values may lead to misinterpretation of CBC data. Current Interpretive Data was last revised on 2018. Testing performed by: [facility] Lab, [address] [place] [phone] Basophil pct 2.0 % [facility] Comment: Interpretive Data Percent cell count reference ranges are not reported, since discordance with absolute values may lead to misinterpretation of CBC data. Current Interpretive Data was last revised on 2018. Testing performed by: [facility], [address] [place] [phone] Blood 07/31/2025 11:1 7 AM CDT 07/31/2025 11:22 AM CDT us Stan Meza MD LAB BLOOD ORDERABLES Yolette l Result [facility] Department [place] [address] * (ABNORMAL) CBC with auto differential (07/31/2025 11:17 AM CDT) WBC 5.40 3.80 - 9.90 K/cumm Comment:Testing performed by : [facility], [address] [place] [phone] Hgb 10.4(L) 13.0 - 17.5 g/dL [facility] Comment:Testing performed by : [facility], [address] [place] [phone] Hct 31.5(L) 38.9 - 50.3 % [facility] Comment:Testing performed by : [facility], [address] [place] [address] Plt 257 150 - 400 K/cumm CERALDO BJ Comment:Testing performed by : [facility], [address] [place] [address] MPV 6.9 6.8 - 10.4 fL CERALDO BJ Comment:Testing performed by : [facility], [address] [place], [place] [phone] RBC 3.97(L) 4.30 - 5.80 M/cumm CERNER BJ Comment:Testing performed by : [facility], [address] [place], [place] [phone] MCV 79.5(L) 81.3 - 96.4 fL CERALDO BJ Comment:Testing performed by : [facility], [address] [place], [place] [phone] MCH 26.2(L) 27.1 - 33.3 pg CERALDO BJ Comment:Testing performed by : [facility], [address] [place] [address] MCHC 33.0 32.3 - 35.7 g/dL CERNER BJ Comment:Testing performed by : [facility], [address] [place] [address] RDW CV 18.4(H) 11.1 - 14.9 % CERNER BJ Comment:Testing performed by : [facility], [address] [place] [address] NRBC abs 0.00 0.00 - 0.01 K/cumm CERALDO BJ Comment:Testing performed by : [facility], [address] [place] [address] Blood 07/31/2025 11:1 7 AM CDT 07/31/2025 11:22 AM CDT us Stan Meza MD LAB BLOOD ORDERABLES Yolette l Result [facility] Department [place] [address] * (ABNORMAL) Comprehensive metabolic panel (07/31/2025 11:17 AM CDT) Sodium 138 135 - 145 mmol/L Potassium, pl 4.3 3.3 - 4.9 mmol/L [facility] Chloride 104 97 - 110 mmol/L [facility] CO2 25 22 - 32 mmol/L [facility] Anion gap 9 2 - 15 mmol/L [facility] BUN 5(L) 6 - 25 mg/dL [facility] Creatinine 0.68(L) 0.80 - 1.30 mg/dL [facility] Glucose 85 70 - 199 mg/dL [facility] [...] 2022. Calcium 9.2 8.5 - 10.3 mg/dL [facility] Bilirubin, total 0.6 0.1 - 1.2 mg/dL [facility] Protein, pl 6.6 6.5 - 8.5 g/dL [facility] Albumin 3.7 3.5 - 5.0 g/dL [facility] Alk phos 118 40 - 130 Units/L [facility] ALT 10 7 - 55 Units/L [facility] AST 16 10 - 50 Units/L [facility] Blood 07/31/2025 11:1 7 AM CDT 07/31/2025 11:28 AM CDT us Stan Meza MD LAB BLOOD ORDERABLES Yolette l Result [facility] Department [place] [address] * Hepatitis C antibody Blood (05/29/2025 12:49 PM CDT) Hep C Ab Nonreactive Nonreactive Comment:Antibodies to HCV no t detected. Does NOT exclude the possibility of recent exposure to HCV. Current interpretive data was last revised on 22 Blood 05/29/2025 12:4 9 PM CDT 05/29/2025 1:20 PM CDT us Stan Meza MD LAB MICROBIOLOGY - GENERA L ORDERABLES Final Result [facility] Department [place] [address] from Last 3 Months or Most Recently Relevant to Health Maintenance Insurance [facility] Advance Directives For more information, please contact: [phone] * Full Code (Latest Code Status on File) Date Activated Date Inactivated Comments 09/15/2025 9:04 AM 09/16/2025 5:26 AM Care Teams Senior Warehouse Clerk Relationship Specialty Start Date End Date Matthew Mccabe MD PCP - General Family Medicine 05/13/24 Stan Meza MD Medical Oncologist/Line Installer Medical Oncology 06/28/24 [place] [address] [place] [address] [place] [address] Nurse Practitioner Family Practice 03/26/25
--- OUTSIDE RECORDS SUMMARY | 2025-10-24 17:34 | XMS_ITS | Clinical Summary ---
Author Organization [facility] Address [address], [facility] [address] [place] [address] Phone Care Team Providers Care Crew Person Name Role Phone Patito Randalli [place] LABOR COMMISSIONER, VEGETABLE FARMER Unavailable Allergies Active Allergy Reactions Criticality Noted [...] Comments Blood Pressure 142/74 11/06/2017 2:41 PM PNEUMATIC RIVETER Pulse 77 11/06/2017 2:41 PM PNEUMATIC RIVETER Temperature 36.1 C (97 F) 11/06/2017 2:41 PM PNEUMATIC RIVETER Respiratory Rate 18 11/06/2017 2:41 PM PNEUMATIC RIVETER Oxygen Saturation 99% 11/06/2017 8:00 AM PNEUMATIC RIVETER Inhaled Oxygen Concentration - - Weight 113.4 kg (250 lb) 11/03/2017 6:25 PM PNEUMATIC RIVETER Height 175.3 cm (5' 9) 11/03/2017 6:25 PM PNEUMATIC RIVETER Body Mass Index 36.92 11/03/2017 6:25 PM PNEUMATIC RIVETER Plan of Treatment Health Maintenance Due Date [...] CHEST W/O CONTRAST STAT 11/03/2017 11:30 PM PNEUMATIC RIVETER from Last 3 Months or Most Recently Relevant to Health Maintenance Results * CT CHEST W/O CONTRAST (11/03/2017 11:30 PM PNEUMATIC RIVETER) Anatomical Region Laterality Modality Chest N/A Computed Tomogra phy 11/04/2017 12:2 4 AM PNEUMATIC RIVETER Impressions 11/04/2017 12:28 AM PNEUMATIC RIVETER IMPRESSION: 1. A few nonspecific scattered ground-glass infiltrates in the bilateral upper lobes, which may represent pneumonia. 2. Mild paraseptal emphysema. Automated exposure control was used as a dose optimization technique for this examination. Narrative 11/04/2017 12:28 AM PNEUMATIC RIVETER EXAMINATION: CT chest without contrast HISTORY: Cough, [...] AN ELECTRONICALLY VERIFIED REPORT 11/04/2017 12:24 AM: Elyln Epperson M.D. Radiologist YUMIKO:yumiko APO Procedure Note Sukh Cansceo MD - 11/04/2017 EXAMINATION: CT chest without [...] Maintenance Insurance [address] [place] [id number] Advance Directives * Full Code (Latest Code Status on File) Date Activated Date Inactivated Comments 11/04/2017 9:36 AM 11/06/2017 6:27 PM CPR-Full Treat ment: FULL ARREST: Attempt Resuscitation/CPR wit intubation and mechanical ventilation. PRE-ARREST: Use entire range of life support measures to stabilize the patient. Care Teams Crew Person Relationship Specialty Start Date End Date Montserrat Randall, LABOR COMMISSIONER, VEGETABLE FARMER Nurse Practitioner Advanced Practice Nurse 10/21/16
--- OUTSIDE RECORDS SUMMARY | 2025-10-24 17:34 | XMS_ITS | Encounter Summary ---
Author Organization [facility] Address [address] [place] [address] Care Team Providers Care Digital Print Operator Name Role Phone Monica Tellez SALESFORCE CONSULTANT-GLASS CUTTING MACHINE FEEDER Primary Care Provi cristobal Ian Pollock MD Primary Care Provider [phone] Ian Pollock MD Primary Care Provider [phone] Ian Pollock MD Primary Care Provider [phone] Ian Pollock MD Primary Care Provider [phone] Ian Pollock MD Primary Care Provider [phone] Katina Casiano DO Unavailable [phone] Xavi ACOSTA MD, Fred R Primary Care Provider + Katina Casiano DO Unavailable [phone] Tracey Ang Unavailable Unavailable Belkis Angel SALESFORCE CONSULTANT-GLASS CUTTING MACHINE FEEDER Primary Care Provider + Natalie Baum Primary Care Provider [phone] Reason for Visit * Reason Onset Date Comments Results 10/25/2019 Encounter Details Date Type Department Care Team (Late st Contact Info) Description 10/25/2019 Telephone [facility] [address] [address] Monica Tellez, SALESFORCE CONSULTANT-GLASS CUTTING MACHINE FEEDER [address] [facility] [place] [address] Results Social History Tobacco Use Types Packs/Day [...] on file 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 This TNs. Found HCTTE 2D w/Con Doppler/color CMPT Done 10/25/2019, in chart under Cardiac tab, Faxed to [facility]. Pt request callback: [phone]. Pt seems very nervous about his results. TRUCTION PRODUCER * Telephone Encounter - Monica Tellez APRN-CNP - 10/25/2019 1:56 PM CONSTRUCTION PRODUCER Please find out what ultrasound he had. Have not ultrasound results. Who would have ordered this and where?? Monica Gavin [facility] Tellez TRUCTION PRODUCER * Telephone Encounter - Maria Isabel William RN - 10/25/2019 1:47 PM CST Patient nervous about ultrasound result Please call [phone] TRUCTION PRODUCER documented in this encounter Plan of Treatment [...] filedocumented in this encounter Care Teams Digital Print Operator Relationship Specialty Start Date End Date Monica Tellez APRN-CNP PCP - General 07/03/19 11/13/19 Ian Pollock MD PCP - General 11/14/19 12/12/19 Ian Pollock MD PCP - General 12/13/19 05/25/20 Ian Pollock MD PCP - General 05/26/20 06/15/20 Ian Pollock MD [address] [facility] [place] [address] PCP - General 07/31/20 08/20/20 Ian Pollock MD [address] [facility] [place] [address] PCP - General 08/21/20 05/29/23 Jameel Hurley III, MD [address] [facility] [place] [id number] PCP - General Internal Medicine 06/05/23 08/28/23 Belkis Angel, SALESFORCE CONSULTANT-GLASS CUTTING MACHINE FEEDER [address] [place] [phone] PCP - General Nurse Practitioner 08/29/23 05/05/24 Natalie Baum [address] [place] [address] PCP - General 05/06/24 Katina Casiano DO [address] [facility] [place], [place] Resident - PCP Internal Medicine 08/10/22 05/29/23 Katina Casiano DO [address] [facility] [place], [place] Hospitalist 06/05/23 Tracey Ang PA [address] [facility] [place] [address] Physician Operations And Intelligence Assistant 08/15/23 documented as of this encounter
--- OUTSIDE RECORDS SUMMARY | 2025-10-24 17:34 | XMS_ITS | Encounter Summary ---
Author Organization [facility] Healthcare Address [address] [place] [address] Care Team Providers Care Cement Crusher Operator Name Role Phone Matthew Mccabe MD Primary Care Prov ider Stan Meza MD Unavailable [phone] Natalie Baum NP Unavailable [phone] Encounter Details Date Type Department Care Team (Late st Contact Info) Description 08/20/2024 Documentation [facility] [address] [place] [address] Social History Tobacco Use [...] on file Legal Sex Male 6:04 PM [employer] Gender Identity Not on file Sexual Orientation Not on file documented as of this encounter Plan of Treatment Not on file documented as of this encounter Visit Diagnoses Not on filedocumented in this encounter Additional Health Concerns Infection Onset Date Last Indicated Resolved Time COVID: Suspected 08/29/2024 08/29/2024 08/29/2024 1:59 PM CDT documented as of this encounter Care Teams Cement Crusher Operator Relationship Specialty Start Date End Date Matthew Mccabe MD PCP - General Family Medicine 05/13/24 Stan Meza MD Medical Oncologist/Protection Analyst Medical Oncology 06/28/24 Natalie Baum NP [address] [address] Nurse Practitioner Family Practice 03/26/25 documented as of this encounter
--- NOTE | 2025-10-24 18:02 | ADMGEN ---
This patient, Josafat Calvo, was admitted to [facility] Surg Room 304-02. Patient/family oriented to hospital policies and general routines including ID bracelet, bed and alarms, visiting hours, pain management, procedures, bathroom and other care routines, personal items, smoking policy, room service/diet, and visiting hours. Information on how to activate the Rapid Response Team has been discussed. Patient/Family are encouraged to report perceived risks to care and to ask questions if they do not understand what they are told or what they should do.
[2025-10-24 20:00] VITALS: BP 136/81; PULSE 103; PULSE 111; RESP 18; TEMP 36.7; O2SAT 100
--- NOTE | 2025-10-24 23:35 | PM.IMHP2 ---
H&P: HPI History of Present Illness Date/Time: 10/24/25 23:35 Chief Complaint: Shortness of Breath Narrative: 65 y/o M with PMH of systolic/diastolic dysfunction, paroxysmal AFib, cardiomyopathy, asthma/COPD, hypertension, and metastatic lung cancer (undergoing chemotherapy) presents here with shortness of breath. The patient presents here from home via EMS on 10/24 for further evaluation of shortness of breath. He reports onset approximately 2-3 days ago. Shortness of breath is accompanied by a dry cough and nausea/vomiting. Has not vomited within the last 24 hours. He denies chest pain, sputum production, fever, chills, nausea, vomiting, diarrhea, abdominal pain, palpitations, or lightheadedness. He reports yesterday he utilized his home nebulizer without improvement. He has a past medical history significant for metastatic lung cancer for which he is treated at [facility]. His last chemotherapy treatment 2 weeks ago on (10/09?) and reports no significant adverse effects post chemotherapy. Patient is a current smoker, 0.5 PPD. Initial VS at presentation: 98.4? F, HR 110, R 26, 128/86, and 98% on 3L nasal cannula. ED workup showed: No leukocytosis, hemoglobin 10.7 (8.8 on 09/22/2025), ABG showed a mild decrease in his CO2/bicarb otherwise unremarkable, sodium 133, potassium 3.3, creatinine 0.63 and GFR >60, glucose 128, and viral PCR negative. CXR showed slight decreasing chronic coarse reticular opacities throughout the right lung which could be due to pneumonia or sequela prior to pneumonia, asymmetric pulmonary edema or chronic interstitial lung disease and unchanged linear discoid atelectasis/scarring in the left mid to upper lung with chronic elevation of left hemidiaphragm. Chest CTA showed a right lower lobe nodule measuring 1.6 cm concerning for bronchogenic carcinoma, abnormal mediastinal/hilar lymphadenopathy and bilateral adrenal masses suspicious for metastatic disease and probable metastatic disease to the sternum with associated pathologic fracture, chronic interstitial fibrosis this patchy left upper lobe consolidation compatible with pneumonia. EKG showed sinus tachycardia with occasional PVCs, consider anterior/inferior infarct age indeterminate, baseline artifact (when compared to previous PVCs not present). Review of Systems Review of Systems: All systems reviewed & are unremarkable except as noted in HPI and below PMFSH Past Medical History Medical History Non-small cell carcinoma of lung (03/2024) Metastatic Depression Anxiety Bipolar depression BMI 28.0-28.9,adult Hyponatremia Mitral regurgitation Systolic dysfunction Diastolic dysfunction (04/2024) PAF (paroxysmal atrial fibrillation) Cardiomyopathy Arthritis Bronchitis Asthma COPD (chronic obstructive pulmonary disease) HTN (hypertension) Glaucoma Surgical History Surgical History History of knee replacement procedure of right knee Family History Family History Father Alcoholism Heart problem Hypertension Sibling Alcoholism Cancer Hypertension Mother Cancer Hypertension Grandparent Diabetes mellitus Heart problem Hypertension Sibling Cancer Hypertension Social History Social History Smoking packs per day: 1 Smoking cigarettes per day: 20.0 Years smoked: 40 Smoking pack-years: 40.00 Smoking status: Current every day smoker Tobacco type: cigarettes Second hand tobacco smoke exposure: Yes Alcohol intake: former Substance use: never Substance use type: marijuana Other substance usage details: 4 x wk Lack of Transportation: No Lack of Food: Never True Current Housing: I Have Housing Concerned About Future Housing: No Difficulty Paying Gas/Electric Bills: No Difficulty Paying for Meds: No Currently Unemployed: No Education: Decline to Answer Difficulty w/ Childcare or Family Care: No Living arrangements: alone Occupation/Education: retired Additional occupation/education comments: lost [employer] Gender identity (if verbalized by the patient): Male Spiritual care concerns: No Meds Home Medications and Allergies Home Medications ?Medication ?Instructions ?Recorded ?Confirmed ?Type latanoprost 0.005 % eye drops 1 drp ophthalmic (eye) DAILY 05/05/20 10/24/25 History alfuzosin 10 mg tablet,extended 10 mg PO DAILY 12/12/23 10/24/25 History release 24 hr buspirone 7.5 mg tablet 7.5 mg PO BID 12/12/23 10/24/25 History carvedilol 12.5 mg tablet 12.5 mg PO Q12H 12/12/23 10/24/25 History hydroxyzine pamoate 100 mg capsule 25 mg PO TID PRN nausea and 12/12/23 10/24/25 History vomiting lamotrigine 100 mg tablet 25 mg PO DAILY 12/12/23 10/24/25 History ziprasidone HCl 80 mg capsule 80 mg PO BID 12/12/23 10/24/25 History omeprazole 40 mg capsule,delayed 40 mg PO DAILY #90 caps 02/20/24 10/24/25 Rx release morphine 30 mg tablet,extended 30 mg PO Q12H PRN pain 09/13/24 10/24/25 History release ondansetron HCl 8 mg tablet 8 mg PO Q8H PRN Nausea And Vomiting 09/13/24 10/24/25 History oxycodone 5 mg tablet 10 mg PO Q4H PRN Pain (Scale Score 09/13/24 10/24/25 History 7-10) losartan 50 mg tablet See Rx Instructions .Route 03/25/25 10/24/25 Rx .COMPLEX #90 tabs atorvastatin 40 mg tablet 40 mg PO DAILY #90 tabs 04/17/25 10/24/25 Rx apixaban 5 mg tablet (Eliquis) 5 mg PO BID #60 tabs 05/05/25 10/24/25 Rx budesonide-formoterol HFA 160 See Rx Instructions .Route 05/19/25 10/24/25 Rx mcg-4.5 mcg/actuation aerosol .COMPLEX #10.2 ea inhaler (Symbicort) finasteride 5 mg tablet See Rx Instructions .Route 06/22/25 10/24/25 Rx .COMPLEX #30 tabs ipratropium 0.5 mg-albuterol 3 mg See Rx Instructions .Route 07/01/25 10/24/25 Rx (2.5 mg base)/3 mL nebulization .COMPLEX #360 mL soln albuterol sulfate 90 mcg/actuation See Rx Instructions .Route 10/16/25 10/24/25 Rx aerosol inhaler .COMPLEX #8.5 ea cefdinir 300 mg capsule 300 mg PO DAILY 10/24/25 10/24/25 History eplerenone 25 mg tablet 25 mg PO DAILY 10/24/25 10/24/25 History lorazepam 0.5 mg tablet (Ativan) 0.5 mg PO DAILY 10/24/25 10/24/25 History Held on 10/24/25. Instructions: .Provider Order mirtazapine 7.5 mg tablet 7.5 mg PO DAILY 10/24/25 10/24/25 History potassium chloride 20 mEq 20 meq PO DAILY 10/24/25 10/24/25 History tablet,extended release(part/cryst) (Klor-Con M) prochlorperazine maleate 10 mg 10 mg PO Q6H PRN nausea and 10/24/25 10/24/25 History tablet (Compazine) vomiting sennosides 8.6 mg-docusate sodium 2 tab-cap PO DAILY 10/24/25 10/24/25 History 50 mg tablet (Senexon-S) tiotropium bromide 18 mcg capsule 1 cap inhalation DAILY PRN 10/24/25 10/24/25 History with inhalation device (Spiriva shortness of breath or wheezing with HandiHaler) tramadol 50 mg tablet 50 mg PO Q12H 10/24/25 10/24/25 History Held on 10/24/25. Instructions: .Provider Order Allergies Allergy/AdvReac Type Severity Reaction Status Date / Time lisinopril Allergy Severe ANGIOEDEMA Verified 10/24/25 18:19 Penicillins Allergy Unknown Swelling Verified 10/24/25 18:19 Vital Signs Vital Signs - 24 hr 10/24/25 12:47 10/24/25 12:55 10/24/25 13:16 Temperature 98.4 F Pulse Rate 110 H 106 H Respiratory Rate 26 H 24 H Blood Pressure 128/86 Pulse Oximetry 98 100 Oxygen Delivery Nasal Cannula Nasal Cannula Oxygen Flow Rate 3 3 10/24/25 15:32 10/24/25 16:48 10/24/25 20:00 Temperature 98.2 F 98.0 F Pulse Rate 103 H 103 H 103 H Respiratory Rate 21 H 24 H 18 Blood Pressure 134/97 H 144/91 H 136/81 Pulse Oximetry 100 100 100 Oxygen Delivery Oxygen Flow Rate 10/24/25 20:00 Temperature Pulse Rate Respiratory Rate Blood Pressure Pulse Oximetry 100 Oxygen Delivery Nasal Cannula Oxygen Flow Rate 2 Exam Const: General: comfortable and no acute distress Other: , male, mildly ill-appearing however nontoxic HENMT: Face/Nose/Sinus: Normal nares present Mouth: Yes moist mucous membranes Eyes: General: appearance normal, both eyes and all related structures Sclera: sclerae normal Pupils: Equal, round and reactive pupils present EOM: EOMs intact bilaterally Resp: Effort & Inspection: normal respiratory effort Other: Nasal cannula place, tolerating well. Faint expiratory wheezing bilaterally. Crackles in the left lung base. Cardio: Rate: regular rate Rhythm: regular rhythm Other: S1-S2 present without murmur, rub, ectopy GI: Other: Abdomen soft, nondistended, nontender. Normoactive bowel sounds in all quadrants. Skin: General skin exam: normal color and no rashes or lesions noted Wounds: no wounds Neuro: Speech: normal speech Motor exam (neuro): 5/5 motor strength present throughout Sensory Exam: normal sensation Other: A&O x4 Extrem: General: normal to inspection Psych: Mental Status: mental status grossly normal Affect: normal affect Other: Good insight and judgment, pleasant Results Labs Labs: Short CBC 10/24/25 Range/Units 13:33 WBC 5.3 (4.5-10.0) K/mm3 Hgb 10.7 L (14.0-18.0) g/dL Hct 33.5 L (42.0-52.0) % Plt Count 165 D (150-375) k/mm3 BMP 10/24/25 13:33 Sodium 133 L Potassium 3.3 L Chloride 100 Carbon Dioxide 26 BUN 14 D Creatinine 0.63 L Glucose 128 H Calcium 9.0 Liver Function 10/24/25 Range/Units 13:33 Total Bilirubin 0.4 (0.2-1.3) mg/dL AST 24 (17-59) U/L ALT 20 (6-50) U/L Alkaline Phosphatase 106 (38-126) U/L Albumin 3.7 (3.5-5.1) g/dL Quality VTE Prophylaxis VTE prophylaxis: pharmacologic ordered Assessment and Plan Assessment and plan (1) Sepsis: Qualifiers: Sepsis acute organ dysfunction status: without acute organ dysfunction Sepsis type: sepsis due to unspecified organism Qualified Code(s): A41.9 - Sepsis, unspecified organism Code(s): A41.9 - Sepsis, unspecified organism Status: Acute (2) Community acquired pneumonia: Qualifiers: Laterality: left Lung location: upper lobe of lung Qualified Code(s): J18.9 - Pneumonia, unspecified organism Code(s): J18.9 - Pneumonia, unspecified organism Status: Acute (3) Non-small cell carcinoma of lung: Onset Date: 03/2024 Qualifiers: Laterality: left Qualified Code(s): C34.92 - Malignant neoplasm of unspecified part of left bronchus or lung Code(s): C34.90 - Malignant neoplasm of unspecified part of unspecified bronchus or lung Status: Chronic (4) Asthma-COPD overlap syndrome: Code(s): J44.89 - Other specified chronic obstructive pulmonary disease Status: Chronic (5) HTN (hypertension): Qualifiers: Hypertension type: primary hypertension Qualified Code(s): I10 - Essential (primary) hypertension Code(s): I10 - Essential (primary) hypertension Status: Chronic Plan Patient met sepsis/SIRS criteria. No lactic initially obtained, did receive 1L of IV fluids and it was tolerated well. Will hold off on a second liter due to history of systolic/diastolic dysfunction and there is no current hemodynamic instability. Remains slightly tachycardic in the low 100s. Respiratory rate has since improved. Will check lactic now and add procalcitonin. Blood cultures were obtained on 10/25, follow. CTA concerning for a patchy left upper lobe consolidation compatible with pneumonia, no PE. Started on broad-spectrum antibiotics: Ceftriaxone and doxycycline (QTC elevated). Patient is immunocompromised and currently receiving chemotherapy due to metastatic lung cancer. Follows with oncologist at [facility]. Last chemotherapy was 2 weeks ago on (10/09?). He reports no significant adverse effects post chemotherapy. Faint expiratory wheezing on exam increases concern for COPD exacerbation component. Patient is also a current everyday smoker, 0.5 PPD. No current interest in quitting and declined a nicotine patch. Due to concern for COPD exacerbation will schedule DuoNebs and add prednisone 40 mg x 5 days. Supportive care for pneumonia including Mucinex, Tessalon Perles, DuoNebs, Tylenol p.r.n., and Zofran as needed. At baseline he requires 3L nasal cannula at, no current increased oxygen requirement. Monitor. Mild hypokalemia noted upon admission at 3.3, given 40 KCL p.o. in the ED. Recheck tomorrow. Home medication, KCL 20 mEq daily resumed. Home medications reviewed and resumed as appropriate. History of hypertension, currently stable. Antihypertensives resumed. Overall since arrival to the emergency department/admission, the patient reports general improvement. No current complaints. Diet: Heart healthy GI Prophylaxis: N/a DVT Prophylaxis: Eliquis IV fluids: 1L bolus Lines/Tubes: pIV Code Status: Full code Prior Studies I have reviewed the following patient records and this information was taken into consideration when formulating the assessment and plan.: previous labs, previous ER visits, previous hospitalizations and previous clinic visits Time Spent with Patient Time with patient: less than 45 minutes Hospitalist MIPS Advance Care Plan I have confirmed that the patient's Advanced Care Plan is present, code status is documented, or surrogate decision maker is listed in patient medical record.: Yes Medication Reconciliation I have utilized all available resources to obtain, update and review the patients current medications (includes all prescriptions, OTC, herbals, cannabis, and nutritional supplements).: Yes
--- NOTE | 2025-10-24 23:45 | PC.NURSE ---
Shameka Cabezas NP was here to see Pt. Shameka notified that quality assurance monitor final had been showing bigeminy. No new orders at this time.
[2025-10-25] VITALS (17 sets, daily range): BP systolic 103–134; BP diastolic 61–73; PULSE 55–105; RESP 16–20; TEMP 36.4–36.6; O2SAT 98–100
[2025-10-25] MEDS: IPRATROPIUM 0.5 MG/ALBUTEROL SULFATE 2.5 MG (BASE) AMPUL.NEB 3 ML INHALATION ×4 (01:03→22:03)
[2025-10-25 01:12] LABS: Procalcitonin 0.0 ng/mL
[2025-10-25] MEDS: DOXYCYCLINE IV 100 MG in SODIUM CHLORIDE 0.9% IV 100 ML IVPB ×2 (04:21→17:34)
[2025-10-25] MEDS: BENZONATATE 100 MG CAPSULE PO (04:29)
[2025-10-25] MEDS: FLUTICASONE/SALMETEROL 115-21 MCG INHALER 1 PUFF 2 PUFF INHALATION ×2 (07:18→22:04)
--- NOTE | 2025-10-25 08:50 | PM.IMPN2 ---
Assessment and Plan Assessment and Plan (1) Sepsis: Qualifiers: Sepsis acute organ dysfunction status: without acute organ dysfunction Sepsis type: sepsis due to unspecified organism Qualified Code(s): A41.9 - Sepsis, unspecified organism Code(s): A41.9 - Sepsis, unspecified organism Status: Acute (2) Community acquired pneumonia: Qualifiers: Laterality: left Lung location: upper lobe of lung Qualified Code(s): J18.9 - Pneumonia, unspecified organism Code(s): J18.9 - Pneumonia, unspecified organism Status: Acute (3) Non-small cell carcinoma of lung: Onset Date: 03/2024 Qualifiers: Laterality: left Qualified Code(s): C34.92 - Malignant neoplasm of unspecified part of left bronchus or lung Code(s): C34.90 - Malignant neoplasm of unspecified part of unspecified bronchus or lung Status: Chronic (4) Asthma-COPD overlap syndrome: Code(s): J44.89 - Other specified chronic obstructive pulmonary disease Status: Chronic (5) HTN (hypertension): Qualifiers: Hypertension type: primary hypertension Qualified Code(s): I10 - Essential (primary) hypertension Code(s): I10 - Essential (primary) hypertension Status: Chronic Plan Patient met sepsis/SIRS criteria. No lactic initially obtained, did receive 1L of IV fluids and it was tolerated well. Will hold off on a second liter due to history of systolic/diastolic dysfunction and there is no current hemodynamic instability. Remains slightly tachycardic in the low 100s. Respiratory rate has since improved. Will check lactic now and add procalcitonin. Blood cultures were obtained on 10/25, follow. CTA concerning for a patchy left upper lobe consolidation compatible with pneumonia, no PE. Started on broad-spectrum antibiotics: Ceftriaxone and doxycycline (QTC elevated). Patient is immunocompromised and currently receiving chemotherapy due to metastatic lung cancer. Follows with oncologist at [facility]. Last chemotherapy was 2 weeks ago on (10/09?). He reports no significant adverse effects post chemotherapy. Faint expiratory wheezing on exam increases concern for COPD exacerbation component. Patient is also a current everyday smoker, 0.5 PPD. No current interest in quitting and declined a nicotine patch. Due to concern for COPD exacerbation will schedule DuoNebs and add prednisone 40 mg x 5 days. Supportive care for pneumonia including Mucinex, Tessalon Perles, DuoNebs, Tylenol p.r.n., and Zofran as needed. At baseline he requires 3L nasal cannula at, no current increased oxygen requirement. Monitor. Mild hypokalemia noted upon admission at 3.3, given 40 KCL p.o. in the ED. Recheck tomorrow. Home medication, KCL 20 mEq daily resumed. Home medications reviewed and resumed as appropriate. History of hypertension, currently stable. Antihypertensives resumed. Overall since arrival to the emergency department/admission, the patient reports general improvement. No current complaints. 10/25 - on prednisone x 5 days - continue duonebs - on Eliquis- continue fall/bleeding precautions - Started on broad-spectrum antibiotics: Ceftriaxone and doxycycline (QTC elevated)- continue - follow BC- still pending today - will order daily labs to monitor wbc, hg, plt, kidney function and electrolytes -will wean off oxygen as tolerated. Diet: Heart healthy GI Prophylaxis: N/a DVT Prophylaxis: Eliquis IV fluids: 1L bolus Lines/Tubes: pIV Code Status: Full code Subjective Date/time seen: 10/25/25 08:50 Interval history: 65 y/o M with PMH of systolic/diastolic dysfunction, paroxysmal AFib, cardiomyopathy, asthma/COPD, hypertension, and metastatic lung cancer (undergoing chemotherapy) presents here with shortness of breath. The patient presents here from home via EMS on 10/24 for further evaluation of shortness of breath. He reports onset approximately 2-3 days ago. Shortness of breath is accompanied by a dry cough and nausea/vomiting. Has not vomited within the last 24 hours. He denies chest pain, sputum production, fever, chills, nausea, vomiting, diarrhea, abdominal pain, palpitations, or lightheadedness. He reports yesterday he utilized his home nebulizer without improvement. He has a past medical history significant for metastatic lung cancer for which he is treated at [facility]. His last chemotherapy treatment 2 weeks ago on (10/09?) and reports no significant adverse effects post chemotherapy. Patient is a current smoker, 0.5 PPD. Initial VS at presentation: 98.4? F, HR 110, R 26, 128/86, and 98% on 3L nasal cannula. ED workup showed: No leukocytosis, hemoglobin 10.7 (8.8 on 09/22/2025), ABG showed a mild decrease in his CO2/bicarb otherwise unremarkable, sodium 133, potassium 3.3, creatinine 0.63 and GFR >60, glucose 128, and viral PCR negative. CXR showed slight decreasing chronic coarse reticular opacities throughout the right lung which could be due to pneumonia or sequela prior to pneumonia, asymmetric pulmonary edema or chronic interstitial lung disease and unchanged linear discoid atelectasis/scarring in the left mid to upper lung with chronic elevation of left hemidiaphragm. Chest CTA showed a right lower lobe nodule measuring 1.6 cm concerning for bronchogenic carcinoma, abnormal mediastinal/hilar lymphadenopathy and bilateral adrenal masses suspicious for metastatic disease and probable metastatic disease to the sternum with associated pathologic fracture, chronic interstitial fibrosis this patchy left upper lobe consolidation compatible with pneumonia. EKG showed sinus tachycardia with occasional PVCs, consider anterior/inferior infarct age indeterminate, baseline artifact (when compared to previous PVCs not present). 10/25- pt is seen and examined during morning rounds. He is feeling a little bit better, still sob. Wears oxygen at home as needed, currently, on 3l per NC-satting 100%. Denies n/v/d. Review of Systems Review of Systems: All systems reviewed & are unremarkable except as noted in HPI and below Exam Const: General: comfortable and no acute distress Other: , male, mildly ill-appearing however nontoxic HENMT: Face/Nose/Sinus: Normal nares present Mouth: Yes moist mucous membranes Eyes: General: appearance normal, both eyes and all related structures Sclera: sclerae normal Pupils: Equal, round and reactive pupils present EOM: EOMs intact bilaterally Resp: Effort & Inspection: normal respiratory effort Other: Nasal cannula place, tolerating well. Faint expiratory wheezing bilaterally. Crackles in the left lung base. Cardio: Rate: regular rate Rhythm: regular rhythm Other: S1-S2 present without murmur, rub, ectopy GI: Other: Abdomen soft, nondistended, nontender. Normoactive bowel sounds in all quadrants. Skin: General skin exam: normal color and no rashes or lesions noted Wounds: no wounds Neuro: Cranial nerves: Yes Equal, round and reactive pupils present Speech: normal speech Motor exam (neuro): 5/5 motor strength present throughout Sensory Exam: normal sensation Other: A&O x4 Extrem: General: normal to inspection Psych: Mental Status: mental status grossly normal Affect: normal affect Other: Good insight and judgment, pleasant Objective Data Vital Signs Vital Signs: Vital Signs - 24 hr 10/24/25 12:47 10/24/25 12:55 10/24/25 13:16 Temperature 98.4 F Pulse Rate 110 H 106 H Respiratory Rate 26 H 24 H Blood Pressure 128/86 Pulse Oximetry 98 100 Oxygen Delivery Nasal Cannula Nasal Cannula Oxygen Flow Rate 3 3 Fraction of Inspired Oxygen 10/24/25 15:32 10/24/25 16:48 10/24/25 20:00 Temperature 98.2 F 98.0 F Pulse Rate 103 H 103 H 103 H Respiratory Rate 21 H 24 H 18 Blood Pressure 134/97 H 144/91 H 136/81 Pulse Oximetry 100 100 100 Oxygen Delivery Oxygen Flow Rate Fraction of Inspired Oxygen 10/24/25 20:00 10/24/25 20:00 10/25/25 00:00 Temperature 97.8 F Pulse Rate 111 H 55 L Respiratory Rate 16 Blood Pressure 134/66 Pulse Oximetry 100 100 Oxygen Delivery Nasal Cannula Oxygen Flow Rate 2 Fraction of Inspired Oxygen 10/25/25 00:00 10/25/25 01:04 10/25/25 01:09 Temperature Pulse Rate 104 H 105 H Respiratory Rate 20 Blood Pressure Pulse Oximetry 98 Oxygen Delivery Nasal Cannula Oxygen Flow Rate 3 Fraction of Inspired Oxygen 32 10/25/25 01:16 10/25/25 04:00 10/25/25 04:00 Temperature 97.7 F Pulse Rate 104 H 99 98 Respiratory Rate 20 16 Blood Pressure 111/66 Pulse Oximetry 100 Oxygen Delivery Oxygen Flow Rate Fraction of Inspired Oxygen 10/25/25 07:19 10/25/25 07:21 10/25/25 07:25 Temperature Pulse Rate 96 98 Respiratory Rate 18 18 Blood Pressure Pulse Oximetry 99 Oxygen Delivery Nasal Cannula Oxygen Flow Rate 3 Fraction of Inspired Oxygen 10/25/25 07:47 Temperature 97.7 F Pulse Rate 99 Respiratory Rate 16 Blood Pressure 116/69 Pulse Oximetry 100 Oxygen Delivery Oxygen Flow Rate Fraction of Inspired Oxygen Intake/Output Intake/Output: Intake & Output 10/22/25 10/23/25 10/24/25 10/25/25 23:59 23:59 23:59 23:59 Intake Total 50 500 Output Total 200 Balance -150 500 Meds/Results Medications: Active Medications Generic Name Dose Route Start Last Admin Trade Name Freq PRN Reason Stop Dose Admin Acetaminophen 650 mg 10/25/25 00:06 Acetaminophen 325 Mg Tablet PO Q6H PRN Mild Pain (1-3) or Fever Albuterol/Ipratropium 3 ml 10/25/25 02:00 10/25/25 07:18 Ipratropium 0.5 Mg/Albuterol Sulfate 2.5 Mg (Base) Ampul.Neb 3 Ml INHALATION 3 ml Q6HRT DARIEL Administration Alfuzosin HCl 10 mg 10/25/25 09:00 Alfuzosin 10 Mg Er Tablet PO DAILY [facility] Apixaban 5 mg 10/25/25 09:00 Apixaban 5 Mg Tablet PO Q12HR [facility] Atorvastatin Calcium 40 mg 10/25/25 09:00 Atorvastatin 40 Mg Tablet PO DAILY [facility] Benzonatate 100 mg 10/25/25 00:05 10/25/25 04:29 Benzonatate 100 Mg Capsule PO 100 mg TID PRN Administration Cough Buspirone HCl 5 mg 10/25/25 09:00 Buspirone Hcl 5 Mg Tablet PO Q12HR DARIEL Buspirone HCl 2.5 mg 10/25/25 09:00 Buspirone Hcl 2.5 Mg Tablet PO Q12HR [facility] Carvedilol 12.5 mg 10/25/25 09:00 Carvedilol 12.5 Mg Tablet PO Q12HR [facility] Finasteride 5 mg 10/25/25 09:00 Finasteride 5 Mg Tablet PO DAILY [facility] Guaifenesin 600 mg 10/25/25 09:00 Guaifenesin 12 Hr 600 Mg Tabcr PO Q12HR [facility] Ceftriaxone Sodium 1 gm/ 50 mls @ 100 mls/hr 10/25/25 17:00 Sodium Chloride IVPB Q24H DARIEL Doxycycline Hyclate 100 mg/ 100 mls @ 100 mls/hr 10/25/25 05:00 10/25/25 04:21 Sodium Chloride IVPB 10/29/25 17:59 100 mls/hr Q12H DARIEL Administration Lamotrigine 50 mg 10/25/25 09:00 Lamotrigine 50 Mg Tablet PO Q12HR D[facility] Latanoprost 1 drop 10/25/25 09:00 Latanoprost 0.005% Op Soln 2.5 Ml Btl EACH EYE DAILY [facility] Losartan Potassium 50 mg 10/25/25 09:00 Losartan Potassium 50 Mg Tablet PO DAILY [facility] Mirtazapine 7.5 mg 10/25/25 09:00 Mirtazapine 7.5 Mg Tablet PO DAILY [facility] Miscellaneous Information 0 each 10/25/25 01:00 10/25/25 01:57 Eplerenone 25 Mg Tablet- Nonformulary Please Obtain A Home Supply If Possible Or Hold Whil XX 11/24/25 00:59 Not Given CLARIFY [facility] Miscellaneous Information 0 each 10/25/25 06:00 Alffuzosin- Looks Like It Is Available, But Is Nonformulary. Please Obtain A Home Supply I XX 11/24/25 05:59 CLARIFY [facility] Morphine Sulfate 30 mg 10/25/25 09:00 Morphine Sulfate (*Crx) 30 Mg Tabcr PO Q12HR [facility] Non-Formulary Medication 25 mg 10/25/25 09:00 Eplerenone PO 11/24/25 08:59 DAILY [facility] Ondansetron HCl 4 mg 10/25/25 00:06 Ondansetron Inj 4 Mg/2 Ml Vial IV PUSH Q6H PRN Nausea And Vomiting Oxycodone HCl 10 mg 10/25/25 00:08 Oxycodone Hcl (*Crx) 5 Mg Tab Ir PO Q4H PRN Pain (Scale Score 7-10) Pantoprazole Sodium 40 mg 10/25/25 09:00 Pantoprazole 40 Mg Tablet PO BID [facility] Potassium Chloride 20 meq 10/25/25 08:00 Potassium Chloride 20 Meq Er Tablet PO DAILY@0800 [facility] Prednisone 40 mg 10/25/25 08:00 Prednisone 20 Mg Tablet PO 10/29/25 08:01 DAILY@0800 [facility] Fluticasone/Salmeterol 2 puff 10/25/25 08:00 10/25/25 07:18 Fluticasone/Salmeterol 115-21 Mcg Inhaler 1 Puff INHALATION 2 puff Q12HRT [facility] Administration Senna/Docusate Sodium 2 tab 10/25/25 09:00 Senna/Docusate Sodium Tablet PO DAILY [facility] Umeclidinium [place] 1 puff 10/25/25 08:00 Umeclidinium [place] 62.5 Mcg Ellipta INHALATION DAILYRT [facility] Ziprasidone 80 mg 10/25/25 09:00 Ziprasidone Hcl 80 Mg Capsule PO Q12HR [facility] Radiology Results: ITS Impressions Chest X-Ray 10/24/25 13:57 IMPRESSION: 1. Slight decrease in chronic coarse reticular opacities throughout the right lung which could be due to pneumonia or sequela prior pneumonia, asymmetric pulmonary edema or chronic interstitial lung disease. 2. Unchanged linear discoid atelectasis/scarring in the left mid to upper lung with chronic elevation the left hemidiaphragm. Chest CTA 10/24/25 15:00 IMPRESSION: 1. Right lower lobe nodule measuring 1.6 cm, concerning for bronchogenic carcinoma. Abnormal mediastinal, hilar lymphadenopathy and bilateral adrenal masses, suspicious for metastatic disease. Probable metastatic disease to the sternum with associated pathologic fracture. 2: Chronic interstitial fibrosis with patchy left upper lobe consolidation, compatible with pneumonia.0 Labs Labs: Laboratory Results - last 24 hr 10/24/25 10/24/25 10/25/25 13:14 13:33 00:29 WBC 5.3 RBC 3.94 L Hgb 10.7 L Hct 33.5 L MCV 85.0 MCH 27.2 MCHC 31.9 L RDW 15.9 H Plt Count 165 D MPV 9.1 Immature Gran % (Auto) 0.2 Neut % (Auto) 51.6 Lymph % (Auto) 24.6 [place] % (Auto) 14.8 H Eos % (Auto) 7.9 H Baso % (Auto) 0.9 Lymph # (Auto) 1.31 [place] # (Auto) 0.8 H Eos # (Auto) 0.4 H Baso # (Auto) 0.1 Abs Immat Gran (auto) 0.01 Absolute Neuts (auto) 2.7 Absolute Nucleated RBC 0.000 Nucleated RBC % 0.0 Puncture Site Right radial ABG pH 7.438 ABG pCO2 32.4 L ABG pO2 85.7 ABG PO2/FiO2 Ratio 2.68 ABG HCO3 21.4 L ABG O2 Saturation 96.9 ABG O2 Content 16.0 ABG Base Excess -2.0 A-a Gradient 104.6 Oxyhemoglobin 94.5 Total Hemoglobin 12.0 O2 Delivery Device Nasal cannula O2 Liters/Min 3.0 FiO2 32 Sodium 133 L Potassium 3.3 L Chloride 100 Carbon Dioxide 26 Anion Gap 7 BUN 14 D Creatinine 0.63 L Estim Creat Clear Calc 101 Estimated GFR > 60 Glucose 128 H POC Capillary Glucose Lactic Acid 1.3 Calcium 9.0 Total Bilirubin 0.4 AST 24 ALT 20 Alkaline Phosphatase 106 Total Protein 7.1 Albumin 3.7 Procalcitonin 0.0 Influenza A (RT-PCR) Negative Influenza B (RT-PCR) Negative RSV (RT-PCR) Negative SARS-CoV-2 RNA (RT-PCR) Negative 10/25/25 07:38 WBC RBC Hgb Hct MCV MCH MCHC RDW Plt Count MPV Immature Gran % (Auto) Neut % (Auto) Lymph % (Auto) [place] % (Auto) Eos % (Auto) Baso % (Auto) Lymph # (Auto) [place] # (Auto) Eos # (Auto) Baso # (Auto) Abs Immat Gran (auto) Absolute Neuts (auto) Absolute Nucleated RBC Nucleated RBC % Puncture Site ABG pH ABG pCO2 ABG pO2 ABG PO2/FiO2 Ratio ABG HCO3 ABG O2 Saturation ABG O2 Content ABG Base Excess A-a Gradient Oxyhemoglobin Total Hemoglobin O2 Delivery Device O2 Liters/Min FiO2 Sodium Potassium Chloride Carbon Dioxide Anion Gap BUN Creatinine Estim Creat Clear Calc Estimated GFR Glucose POC Capillary Glucose 99 Lactic Acid Calcium Total Bilirubin AST ALT Alkaline Phosphatase Total Protein Albumin Procalcitonin Influenza A (RT-PCR) Influenza B (RT-PCR) RSV (RT-PCR) SARS-CoV-2 RNA (RT-PCR) Quality VTE Prophylaxis VTE prophylaxis: pharmacologic ordered
[2025-10-25] MEDS: oxyCODONE HCL (*CRX) 5 MG TAB IR 10 MG PO (09:51)
[2025-10-25] MEDS: ATORVASTATIN 40 MG TABLET PO (09:52)
[2025-10-25] MEDS: MIRTAZAPINE 7.5 MG TABLET PO (09:52)
[2025-10-25] MEDS: FINASTERIDE 5 MG TABLET PO (09:52)
[2025-10-25] MEDS: ZIPRASIDONE HCL 80 MG CAPSULE PO ×2 (09:52→20:34)
[2025-10-25] MEDS: lamoTRIgine 50 MG TABLET PO ×2 (09:52→20:34)
[2025-10-25] MEDS: APIXABAN 5 MG TABLET PO ×2 (09:52→20:33)
[2025-10-25] MEDS: MORPHINE SULFATE (*CRX) 30 MG TABCR PO ×2 (09:52→20:34)
[2025-10-25] MEDS: LOSARTAN POTASSIUM 50 MG TABLET PO (09:52)
[2025-10-25] MEDS: POTASSIUM CHLORIDE 20 MEQ ER TABLET PO (09:52)
[2025-10-25] MEDS: SENNA/DOCUSATE SODIUM TABLET 2 TAB PO (09:52)
[2025-10-25] MEDS: PANTOPRAZOLE 40 MG TABLET PO ×2 (09:53→16:52)
[2025-10-25] MEDS: LATANOPROST 0.005% OP SOLN 2.5 ML BTL 1 DROP EACH EYE (09:53)
[2025-10-25] MEDS: guaiFENesin 12 HR 600 MG TABCR PO ×2 (09:53→20:34)
[2025-10-25] MEDS: busPIRone HCL 2.5 MG TABLET PO ×2 (09:53→20:33)
[2025-10-25] MEDS: UMECLIDINIUM BROMIDE 62.5 MCG ELLIPTA 1 PUFF INHALATION (09:54)
[2025-10-25 10:36] LABS: Hematocrit 30.9 % (42.0-52.0); Hemoglobin 10.0 g/dL (14.0-18.0); Mean Corpuscular HGB Conc 32.4 g/dl (32-36); Mean Corpuscular Hemoglobin 27.2 pg (26-34); Mean Corpuscular Volume 84.2 fl (80-100); Platelet Count Result 175 k/mm3 (150-375); Red Blood Count 3.67 M/mm3 (4.6-6.20); White Blood Count 8.1 K/mm3 (4.5-10.0)
[2025-10-25 10:49] LABS: Anion Gap 7 mmol/L (4-12); Blood Urea Nitrogen 9 mg/dL (9-20); Calcium 9.0 mg/dL (8.4-10.2); Carbon Dioxide 25 mmol/L (22-30); Chloride 102 mmol/L (98-107); Estimated CRCL calculation 114 ml/min; Estimated Glomerular Filt Rate > 60; Glucose 99 mg/dL (65-110); Potassium 3.6 mmol/L (3.4-5.0); Sodium 134 mmol/L (137-145)
[2025-10-25] MEDS: cefTRIAXone 1 GM in SODIUM CHLORIDE 0.9% IV 50 ML 100 ML IVPB (16:52)
[2025-10-26] VITALS (17 sets, daily range): BP systolic 125–146; BP diastolic 82–99; PULSE 86–108; RESP 16–18; TEMP 36.2–36.6; O2SAT 94–100
[2025-10-26] MEDS: IPRATROPIUM 0.5 MG/ALBUTEROL SULFATE 2.5 MG (BASE) AMPUL.NEB 3 ML INHALATION ×3 (02:11→19:43)
[2025-10-26] MEDS: DOXYCYCLINE IV 100 MG in SODIUM CHLORIDE 0.9% IV 100 ML IVPB ×2 (05:14→17:20)
[2025-10-26 06:44] LABS: Hematocrit 32.0 % (42.0-52.0); Hemoglobin 10.2 g/dL (14.0-18.0); Immature Granulocyte Percent A 0.4 % (0-0.5); Lymphocytes Absolute Auto 1.40 K/mm3 (0.9-3.2); Mean Corpuscular HGB Conc 31.9 g/dl (32-36); Mean Corpuscular Hemoglobin 27.3 pg (26-34); Mean Corpuscular Volume 85.6 fl (80-100); Nucleated Red Blood Cells Absolute Auto 0.000 K/mm3 (0.0-0.012); Nucleated Red Blood Cells Perc 0.0 % (0.0-0.2); Platelet Count Result 161 k/mm3 (150-375); Red Blood Count 3.74 M/mm3 (4.6-6.20); White Blood Count 7.9 K/mm3 (4.5-10.0)
[2025-10-26 07:06] LABS: Anion Gap 4 mmol/L (4-12); Blood Urea Nitrogen 9 mg/dL (9-20); Calcium 9.0 mg/dL (8.4-10.2); Carbon Dioxide 26 mmol/L (22-30); Chloride 104 mmol/L (98-107); Estimated CRCL calculation 107 ml/min; Estimated Glomerular Filt Rate > 60; Glucose 88 mg/dL (65-110); Potassium 4.0 mmol/L (3.4-5.0); Sodium 134 mmol/L (137-145)
--- NOTE | 2025-10-26 08:14 | P.PNIM_ITS ---
Assessment and Plan Assessment and Plan (1) Sepsis: Qualifiers: Sepsis acute organ dysfunction status: without acute organ dysfunction Sepsis type: sepsis due to unspecified organism Qualified Code(s): A41.9 - Sepsis, unspecified organism Code(s): A41.9 - Sepsis, unspecified organism Status: Acute (2) Community acquired pneumonia: Qualifiers: Laterality: left Lung location: upper lobe of lung Qualified Code(s): J18.9 - Pneumonia, unspecified organism Code(s): J18.9 - Pneumonia, unspecified organism Status: Acute (3) Non-small cell carcinoma of lung: Onset Date: 03/2024 Qualifiers: Laterality: left Qualified Code(s): C34.92 - Malignant neoplasm of unspecified part of left bronchus or lung Code(s): C34.90 - Malignant neoplasm of unspecified part of unspecified bronchus or lung Status: Chronic (4) Asthma-COPD overlap syndrome: Code(s): J44.89 - Other specified chronic obstructive pulmonary disease Status: Chronic (5) HTN (hypertension): Qualifiers: Hypertension type: primary hypertension Qualified Code(s): I10 - Essential (primary) hypertension Code(s): I10 - Essential (primary) hypertension Status: Chronic Plan 65 y/o M with PMH of systolic/diastolic dysfunction, paroxysmal AFib, cardiomyopathy, asthma/COPD, hypertension, and metastatic lung cancer (undergoing chemotherapy) presents here with shortness of breath. Treating COPD exacerbation and pneumonia. ED workup showed: No leukocytosis, hemoglobin 10.7 (8.8 on 09/22/2025), ABG showed a mild decrease in his CO2/bicarb otherwise unremarkable, sodium 133, potassium 3.3, creatinine 0.63 and GFR >60, glucose 128, and viral PCR negative. CXR showed slight decreasing chronic coarse reticular opacities throughout the right lung which could be due to pneumonia or sequela prior to pneumonia, asymmetric pulmonary edema or chronic interstitial lung disease and unchanged linear discoid atelectasis/scarring in the left mid to upper lung with chronic elevation of left hemidiaphragm. Chest CTA showed a right lower lobe nodule measuring 1.6 cm concerning for bronchogenic carcinoma, abnormal mediastinal/hilar lymphadenopathy and bilateral adrenal masses suspicious for metastatic disease and probable metastatic disease to the sternum with associated pathologic fracture, chronic interstitial fibrosis this patchy left upper lobe consolidation compatible with pneumonia. EKG showed sinus tachycardia with occasional PVCs, consider anterior/inferior infarct age indeterminate, baseline artifact (when compared to previous PVCs not present). Started on broad-spectrum antibiotics: Ceftriaxone and doxycycline (QTC elevated). Patient is immunocompromised and currently receiving chemotherapy due to metastatic lung cancer. Follows with oncologist at [facility]. Last chemotherapy was 2 weeks ago on (10/09?). He reports no significant adverse effects post chemotherapy. Faint expiratory wheezing on exam increases concern for COPD exacerbation component. Patient is also a current everyday smoker, 0.5 PPD. No current interest in quitting and declined a nicotine patch. Due to concern for COPD exacerbation will schedule DuoNebs and add prednisone 40 mg x 5 days. Supportive care for pneumonia including Mucinex, Tessalon Perles, DuoNebs, Tylenol p.r.n., and Zofran as needed. At baseline he requires 3L nasal cannula at, no current increased oxygen requirement. Monitor. Mild hypokalemia noted upon admission at 3.3, given 40 KCL p.o. in the ED. Followed. Home medication, KCL 20 mEq daily resumed. Home medications reviewed and resumed as appropriate. History of hypertension, currently stable. Antihypertensives resumed. Shortness of breath Acute respiratory failure COPD exacerbation Onset 2-3 days prior to admission Reports dry cough and nausea/vomiting 10/24 CTA 1. Right lower lobe nodule measuring 1.6 cm, concerning for bronchogenic carcinoma. Abnormal mediastinal, hilar lymphadenopathy and bilateral adrenal masses, suspicious for metastatic disease. Probable metastatic disease to the sternum with associated pathologic fracture. 2: Chronic interstitial fibrosis with patchy left upper lobe consolidation, compatible with pneumonia. - on prednisone x 5 days - continue duonebs - on Eliquis- continue fall/bleeding precautions - Started on broad-spectrum antibiotics: Ceftriaxone and doxycycline (QTC elevated)- continue - follow BC - daily labs to monitor wbc, hg, plt, kidney function and electrolytes -will wean off oxygen as tolerated. Has oxygen at home. Recently started to use it again due to shortness of breath but was on 2L O2 10/26. Still wheezing Hx metastatic lung cancer Oncologist at [facility] His last chemotherapy treatment 2 weeks ago on (10/09?) and reports no significant adverse effects post chemotherapy. Current smoker Patient is a current smoker, 0.5 PPD. SIRS/Sepsis 10/24 WBC 5.3, normal anion gap 10/25 Lactic acid 1.3 CTA concerning for a patchy left upper lobe consolidation compatible with pneumonia, no PE. s/p 1 liter of fluids. Will hold off on a second liter due to history of systolic/diastolic dysfunction and there is no current hemodynamic instability. Intially tachycardic to 110, improved to 90's. RR improved. --Blood cultures were obtained on 10/25, follow. --Continue Ceftriaxone and doxycycline Diet: Heart healthy GI Prophylaxis: N/a DVT Prophylaxis: Eliquis IV fluids: 1L bolus Lines/Tubes: pIV Code Status: Full code Time Spent With Patient Time with patient: Greater than 35 minutes Subjective Date/time seen: 10/26/25 08:14 Interval history: Reports shortness of breath over the last week that's been progressive. Feels breathing treatments have helped. Has been using 3L O2 at rest and activity but only recently started using it again because he'd been feeling well. Currently on 2L at rest. Still wheezing Possible discharge tomorrow if continues to improve Exam Narrative: General - Awake and alert. No acute distress Eyes - PERRLA, EOM intact ENT - No thrush, No erythema Neck - No noticeable or palpable swelling Lymph Nodes - No lymphadenopathy Cardiovascular - RRR no m/r/g, no JVD Lungs: Wheezing on exam, no use of accessory muscles, rare crackles Skin - Skin warm and dry, no wounds or rashes Abdomen - Normal bowel sounds, abdomen soft and nontender Extremities - No edema, cyanosis or clubbing Musculoskeletal - 5/5 strength, normal range of motion, no swollen or erythematous joints. Neurological ? Alert and oriented x 3, CN 2-12 grossly intact. Psych: Normal mood and affect Objective Data Vital Signs Vital Signs: Vital Signs - 24 hr 10/25/25 12:00 10/25/25 12:00 10/25/25 13:19 Temperature 97.9 F Pulse Rate 96 93 92 Respiratory Rate 18 18 Blood Pressure 103/61 Pulse Oximetry 100 Oxygen Delivery Oxygen Flow Rate 10/25/25 13:22 10/25/25 16:00 10/25/25 16:00 Temperature 97.9 F Pulse Rate 88 103 H 100 Respiratory Rate 17 18 Blood Pressure 105/63 Pulse Oximetry 100 Oxygen Delivery Oxygen Flow Rate 10/25/25 20:00 10/25/25 20:00 10/25/25 20:00 Temperature 97.5 F L Pulse Rate 96 103 H Respiratory Rate 18 Blood Pressure 111/73 Pulse Oximetry 100 99 Oxygen Delivery Nasal Cannula Oxygen Flow Rate 2 10/25/25 20:34 10/25/25 22:04 10/25/25 22:04 Temperature Pulse Rate 98 89 89 Respiratory Rate 16 16 Blood Pressure Pulse Oximetry 99 Oxygen Delivery Nasal Cannula Oxygen Flow Rate 2 10/26/25 00:00 10/26/25 00:00 10/26/25 02:11 Temperature 97.6 F Pulse Rate 94 93 92 Respiratory Rate 18 16 Blood Pressure 125/88 Pulse Oximetry 100 99 Oxygen Delivery Nasal Cannula Oxygen Flow Rate 1 10/26/25 02:11 10/26/25 04:00 10/26/25 04:00 Temperature 97.7 F Pulse Rate 92 90 91 Respiratory Rate 16 18 Blood Pressure 140/86 Pulse Oximetry 100 Oxygen Delivery Oxygen Flow Rate 10/26/25 07:51 Temperature 97.6 F Pulse Rate 95 Respiratory Rate 16 Blood Pressure 144/96 H Pulse Oximetry 100 Oxygen Delivery Oxygen Flow Rate Intake/Output Intake/Output: Intake & Output 10/23/25 10/24/25 10/25/25 10/26/25 23:59 23:59 23:59 23:59 Intake Total 50 1480 500 Output Total 200 Balance -150 1480 500 Meds/Results Medications: Active Medications Generic Name Dose Route Start Last Admin Trade Name Freq PRN Reason Stop Dose Admin Acetaminophen 650 mg 10/25/25 00:06 Acetaminophen 325 Mg Tablet PO Q6H PRN Mild Pain (1-3) or Fever Albuterol/Ipratropium 3 ml 10/25/25 02:00 10/26/25 02:11 Ipratropium 0.5 Mg/Albuterol Sulfate 2.5 Mg (Base) Ampul.Neb 3 Ml INHALATION 3 ml Q6HRT DARIEL Administration Alfuzosin HCl 10 mg 10/25/25 09:00 Alfuzosin 10 Mg Er Tablet PO On Hold: 10/25/25 09:00 DAILY [facility] Comment: ALFFUZOSIN- LOOKS LIKE IT IS AVAILABLE, BUT IS NONFORMULARY. PLEASE OBTAIN A HOME SUPPLY IF POSSIBLE OR HOLD WHILE INPATIENT. Apixaban 5 mg 10/25/25 09:00 10/25/25 20:33 Apixaban 5 Mg Tablet PO 5 mg Q12HR DARIEL Administration Atorvastatin Calcium 40 mg 10/25/25 09:00 10/25/25 09:52 Atorvastatin 40 Mg Tablet PO 40 mg DAILY DARIEL Administration Benzonatate 100 mg 10/25/25 00:05 10/25/25 04:29 Benzonatate 100 Mg Capsule PO 100 mg TID PRN Administration Cough Buspirone HCl 5 mg 10/25/25 09:00 10/25/25 20:33 Buspirone Hcl 5 Mg Tablet PO 5 mg Q12HR DARIEL Administration Buspirone HCl 2.5 mg 10/25/25 09:00 10/25/25 20:33 Buspirone Hcl 2.5 Mg Tablet PO 2.5 mg Q12HR DARIEL Administration Carvedilol 12.5 mg 10/25/25 09:00 10/25/25 20:34 Carvedilol 12.5 Mg Tablet PO 12.5 mg Q12HR DARIEL Administration Finasteride 5 mg 10/25/25 09:00 10/25/25 09:52 Finasteride 5 Mg Tablet PO 5 mg DAILY DARIEL Administration Guaifenesin 600 mg 10/25/25 09:00 10/25/25 20:34 Guaifenesin 12 Hr 600 Mg Tabcr PO 600 mg Q12HR DARIEL Administration Ceftriaxone Sodium 1 gm/ 50 mls @ 100 mls/hr 10/25/25 17:00 10/25/25 16:52 Sodium Chloride IVPB 100 mls/hr Q24H DARIEL Administration Doxycycline Hyclate 100 mg/ 100 mls @ 100 mls/hr 10/25/25 05:00 10/26/25 05:14 Sodium Chloride IVPB 10/29/25 17:59 100 mls/hr Q12H DARIEL Administration Lamotrigine 50 mg 10/25/25 09:00 10/25/25 20:34 Lamotrigine 50 Mg Tablet PO 50 mg Q12HR DARIEL Administration Latanoprost 1 drop 10/25/25 09:00 10/25/25 09:53 Latanoprost 0.005% Op Soln 2.5 Ml Btl EACH EYE 1 drop DAILY DARIEL Administration Losartan Potassium 50 mg 10/25/25 09:00 10/25/25 09:52 Losartan Potassium 50 Mg Tablet PO 50 mg DAILY DARIEL Administration Mirtazapine 7.5 mg 10/25/25 09:00 10/25/25 09:52 Mirtazapine 7.5 Mg Tablet PO 7.5 mg DAILY DARIEL Administration Miscellaneous Information 0 each 10/25/25 01:00 10/25/25 23:13 Eplerenone 25 Mg Tablet- Nonformulary Please Obtain A Home Supply If Possible Or Hold Whil XX 11/24/25 00:59 Not Given CLARIFY DARIEL Morphine Sulfate 30 mg 10/25/25 09:00 10/25/25 20:34 Morphine Sulfate (*Crx) 30 Mg Tabcr PO 30 mg Q12HR DARIEL Administration Ondansetron HCl 4 mg 10/25/25 00:06 Ondansetron Inj 4 Mg/2 Ml Vial IV PUSH Q6H PRN Nausea And Vomiting Oxycodone HCl 10 mg 10/25/25 00:08 10/25/25 09:51 Oxycodone Hcl (*Crx) 5 Mg Tab Ir PO 10 mg Q4H PRN Administration Pain (Scale Score 7-10) Pantoprazole Sodium 40 mg 10/25/25 09:00 10/25/25 16:52 Pantoprazole 40 Mg Tablet PO 40 mg BID DARIEL Administration Potassium Chloride 20 meq 10/25/25 08:00 10/25/25 09:52 Potassium Chloride 20 Meq Er Tablet PO 20 meq DAILY@0800 DARIEL Administration Prednisone 40 mg 10/25/25 08:00 10/25/25 09:52 Prednisone 20 Mg Tablet PO 10/29/25 08:01 40 mg DAILY@0800 DARIEL Administration Fluticasone/Salmeterol 2 puff 10/25/25 08:00 10/25/25 22:04 Fluticasone/Salmeterol 115-21 Mcg Inhaler 1 Puff INHALATION 2 puff Q12HRT DARIEL Administration Senna/Docusate Sodium 2 tab 10/25/25 09:00 10/25/25 09:52 Senna/Docusate Sodium Tablet PO 2 tab DAILY DARIEL Administration Umeclidinium Whitharral 1 puff 10/25/25 08:00 10/25/25 09:54 Umeclidinium Whitharral 62.5 Mcg Ellipta INHALATION 1 puff DAILYRT DARIEL Administration Ziprasidone 80 mg 10/25/25 09:00 10/25/25 20:34 Ziprasidone Hcl 80 Mg Capsule PO 80 mg Q12HR DARIEL Administration Radiology Results: ITS Impressions Chest X-Ray 10/24/25 13:57 IMPRESSION: 1. Slight decrease in chronic coarse reticular opacities throughout the right lung which could be due to pneumonia or sequela prior pneumonia, asymmetric pulmonary edema or chronic interstitial lung disease. 2. Unchanged linear discoid atelectasis/scarring in the left mid to upper lung with chronic elevation the left hemidiaphragm. Chest CTA 10/24/25 15:00 IMPRESSION: 1. Right lower lobe nodule measuring 1.6 cm, concerning for bronchogenic carcinoma. Abnormal mediastinal, hilar lymphadenopathy and bilateral adrenal masses, suspicious for metastatic disease. Probable metastatic disease to the sternum with associated pathologic fracture. 2: Chronic interstitial fibrosis with patchy left upper lobe consolidation, compatible with pneumonia.0 Labs Labs: Laboratory Results - last 24 hr 10/25/25 10/26/25 10:17 05:45 WBC 8.1 7.9 RBC 3.67 L 3.74 L Hgb 10.0 L 10.2 L Hct 30.9 L 32.0 L MCV 84.2 85.6 MCH 27.2 27.3 MCHC 32.4 31.9 L RDW 15.9 H 16.1 H Plt Count 175 161 MPV 9.4 10.3 Immature Gran % (Auto) 0.4 Neut % (Auto) 67.8 Lymph % (Auto) 17.7 L Sharp % (Auto) 10.9 H Eos % (Auto) 2.8 Baso % (Auto) 0.4 Lymph # (Auto) 1.40 Sharp # (Auto) 0.9 H Eos # (Auto) 0.2 Baso # (Auto) 0.0 Abs Immat Gran (auto) 0.03 Absolute Neuts (auto) 5.4 Absolute Nucleated RBC 0.000 Nucleated RBC % 0.0 Sodium 134 L 134 L Potassium 3.6 4.0 Chloride 102 104 Carbon Dioxide 25 26 Anion Gap 7 4 BUN 9 D 9 Creatinine 0.55 L 0.59 L Estim Creat Clear Calc 114 107 Estimated GFR > 60 > 60 Glucose 99 88 Calcium 9.0 9.0 Quality VTE Prophylaxis VTE prophylaxis: pharmacologic ordered Hospitalist [facility] Advance Care Plan I have confirmed that the patient's Advanced Care Plan is present, code status is documented, or surrogate decision maker is listed in patient medical record.: Yes Medication Reconciliation I have utilized all available resources to obtain, update and review the patients current medications (includes all prescriptions, OTC, herbals, cannabis , and nutritional supplements).: Yes
[2025-10-26] MEDS: LOSARTAN POTASSIUM 50 MG TABLET PO (08:18)
[2025-10-26] MEDS: SENNA/DOCUSATE SODIUM TABLET 2 TAB PO (08:19)
[2025-10-26] MEDS: busPIRone HCL 2.5 MG TABLET PO ×2 (08:19→20:42)
[2025-10-26] MEDS: ZIPRASIDONE HCL 80 MG CAPSULE PO ×2 (08:19→20:42)
[2025-10-26] MEDS: FINASTERIDE 5 MG TABLET PO (08:20)
[2025-10-26] MEDS: MIRTAZAPINE 7.5 MG TABLET PO (08:20)
[2025-10-26] MEDS: PANTOPRAZOLE 40 MG TABLET PO ×2 (08:20→16:48)
[2025-10-26] MEDS: POTASSIUM CHLORIDE 20 MEQ ER TABLET PO (08:20)
[2025-10-26] MEDS: APIXABAN 5 MG TABLET PO ×2 (08:20→20:42)
[2025-10-26] MEDS: ATORVASTATIN 40 MG TABLET PO (08:20)
[2025-10-26] MEDS: lamoTRIgine 50 MG TABLET PO ×2 (08:21→20:42)
[2025-10-26] MEDS: MORPHINE SULFATE (*CRX) 30 MG TABCR PO ×2 (08:21→20:43)
[2025-10-26] MEDS: guaiFENesin 12 HR 600 MG TABCR PO (09:00)
[2025-10-26] MEDS: cefTRIAXone 1 GM in SODIUM CHLORIDE 0.9% IV 50 ML 100 ML IVPB (16:49)
[2025-10-26] MEDS: FLUTICASONE/SALMETEROL 115-21 MCG INHALER 1 PUFF 2 PUFF INHALATION (19:43)
[2025-10-27] VITALS (11 sets, daily range): BP systolic 140–154; BP diastolic 90–106; PULSE 86–107; RESP 16–20; TEMP 36–37.1; O2SAT 97–100; BMI 28.3
[2025-10-27] MEDS: IPRATROPIUM 0.5 MG/ALBUTEROL SULFATE 2.5 MG (BASE) AMPUL.NEB 3 ML INHALATION ×3 (01:55→13:21)
[2025-10-27] MEDS: DOXYCYCLINE IV 100 MG in SODIUM CHLORIDE 0.9% IV 100 ML IVPB (04:38)
[2025-10-27] MEDS: FLUTICASONE/SALMETEROL 115-21 MCG INHALER 1 PUFF 2 PUFF INHALATION (07:47)
[2025-10-27] MEDS: UMECLIDINIUM BROMIDE 62.5 MCG ELLIPTA 1 PUFF INHALATION (07:47)
[2025-10-27 08:28] LABS: Hematocrit 34.1 % (42.0-52.0); Hemoglobin 10.9 g/dL (14.0-18.0); Mean Corpuscular HGB Conc 32.0 g/dl (32-36); Mean Corpuscular Hemoglobin 27.6 pg (26-34); Mean Corpuscular Volume 86.3 fl (80-100); Platelet Count Result 148 k/mm3 (150-375); Red Blood Count 3.95 M/mm3 (4.6-6.20); White Blood Count 7.3 K/mm3 (4.5-10.0)
[2025-10-27 08:55] LABS: Anion Gap 3 mmol/L (4-12); Blood Urea Nitrogen 11 mg/dL (9-20); Calcium 9.1 mg/dL (8.4-10.2); Carbon Dioxide 29 mmol/L (22-30); Chloride 103 mmol/L (98-107); Estimated CRCL calculation 97 ml/min; Estimated Glomerular Filt Rate > 60; Glucose 79 mg/dL (65-110); Potassium 3.9 mmol/L (3.4-5.0); Sodium 135 mmol/L (137-145)
[2025-10-27] MEDS: FINASTERIDE 5 MG TABLET PO (09:50)
[2025-10-27] MEDS: APIXABAN 5 MG TABLET PO (09:50)
[2025-10-27] MEDS: MORPHINE SULFATE (*CRX) 30 MG TABCR PO (09:50)
[2025-10-27] MEDS: lamoTRIgine 50 MG TABLET PO (09:51)
[2025-10-27] MEDS: busPIRone HCL 2.5 MG TABLET PO (09:51)
[2025-10-27] MEDS: guaiFENesin 12 HR 600 MG TABCR PO (09:51)
[2025-10-27] MEDS: PANTOPRAZOLE 40 MG TABLET PO (09:52)
[2025-10-27] MEDS: SENNA/DOCUSATE SODIUM TABLET 2 TAB PO (09:52)
[2025-10-27] MEDS: LOSARTAN POTASSIUM 50 MG TABLET PO (09:53)
[2025-10-27] MEDS: ATORVASTATIN 40 MG TABLET PO (09:53)
[2025-10-27] MEDS: ZIPRASIDONE HCL 80 MG CAPSULE PO (09:53)
[2025-10-27] MEDS: POTASSIUM CHLORIDE 20 MEQ ER TABLET PO (09:53)
[2025-10-27] MEDS: ACETAMINOPHEN 325 MG TABLET 650 MG PO (10:01)
--- NOTE | 2025-10-27 13:47 | PM.DS ---
DS: Summary Time Spent with Patient Time attestation: Total time spent providing and/or coordinating discharge services: DS: Data Data Completed and Pending Labs on day of discharge: Labs from last 24 hours 10/27/25 08:23 WBC 7.3 RBC 3.95 L Hgb 10.9 L Hct 34.1 L MCV 86.3 MCH 27.6 MCHC 32.0 RDW 16.2 H Plt Count 148 L MPV 9.0 Sodium 135 L Potassium 3.9 Chloride 103 Carbon Dioxide 29 Anion Gap 3 L BUN 11 Creatinine 0.66 L Estim Creat Clear Calc 97 Estimated GFR > 60 Glucose 79 Calcium 9.1 Preliminary micro results at discharge 10/24/25 16:23 Blood Culture - Preliminary Blood 10/24/25 16:23 Blood Culture - Preliminary Blood Discharge Plan Discharge Attending physician on discharge: Devaughn Rubi Consulting providers: Анна Sosa Discharging Clinician: Armida Dong Patient Disposition: Home Activity: as tolerated Diet: regular Discharge Instructions: Continue home oxygen at 2-3 liters. Please complete all antibiotics even if you are feeling better. Please contact your oncologist to reschedule your outpatient chemotherapy. Please refrain from smoking cigarettes. Please wear a mask when you are around other people and practice frequent hand hygiene. Please call your PCP or present to the ER if you experience worsening dyspnea, chest pain, fever greater than 100.4F, nausea, vomiting or diarrhea. Patient Instructions: Antibiotic Form, Apixaban (By mouth) Patient Language: [place] Stand Alone Forms: General Discharge Information Follow-up/Referrals: Matthew Mccabe MD [Primary Care Provider, [facility]] Referral Note: call for an appt to be seen within 1-2 weeks of discharge. Please follow up with your oncologist for chemotherapy as scheduled. Discharge Medications: New benzonatate 100 mg Capsule 100 mg PO TID PRN (Reason: Cough) Qty: 15 0RF prednisone 20 mg Tablet 40 mg PO DAILY@0800 Qty: 4 0RF doxycycline monohydrate 100 mg capsule 100 mg PO BID Qty: 9 0RF cefdinir 300 mg capsule 300 mg PO Q12H Qty: 10 0RF guaifenesin [Mucus Relief ER] 600 mg Tablet Extended Release 12hr 600 mg PO Q12HR Qty: 30 0RF Continued omeprazole 40 mg capsule,delayed release(DR/EC) 40 mg PO DAILY Qty: 90 3RF alfuzosin 10 mg tablet extended release 24 hr 10 mg PO DAILY Rx Instructions: administer after the same meal each day ziprasidone HCl 80 mg capsule 80 mg PO BID Rx Instructions: give with food (meal/snack) carvedilol 12.5 mg tablet 12.5 mg PO Q12H Rx Instructions: must administer with a meal/food buspirone 7.5 mg tablet 7.5 mg PO BID lamotrigine 100 mg tablet 25 mg PO DAILY hydroxyzine pamoate 100 mg capsule 25 mg PO TID PRN (Reason: nausea and vomiting) latanoprost 0.005 % Drops 1 drp OPHTHALMIC (EYE) DAILY ondansetron HCl 8 mg tablet 8 mg PO Q8H PRN (Reason: Nausea And Vomiting) morphine 30 mg tablet extended release 30 mg PO Q12H PRN (Reason: pain) oxycodone 5 mg tablet 10 mg PO Q4H PRN (Reason: Pain (Scale Score 7-10)) sennosides-docusate sodium [Senexon-S] 8.6-50 mg tablet 2 tab-cap PO DAILY prochlorperazine maleate [Compazine] 10 mg tablet 10 mg PO Q6H PRN (Reason: nausea and vomiting) potassium chloride [Klor-Con M20] 20 mEq tablet,ER particles/crystals 20 meq PO DAILY lorazepam [Ativan] 0.5 mg tablet 0.5 mg PO DAILY tramadol 50 mg tablet 50 mg PO Q12H mirtazapine 7.5 mg tablet 7.5 mg PO DAILY eplerenone 25 mg tablet 25 mg PO DAILY tiotropium bromide [Spiriva with HandiHaler] 18 mcg capsule, w/inhalation device 1 cap inhalation DAILY PRN (Reason: shortness of breath or wheezing) Rx Instructions: puncture 1 cap using device; one dose = 2 inhalations losartan 50 mg tablet See Rx Instructions .ROUTE .COMPLEX Qty: 90 2RF Dose Instruction: TAKE 1 TABLET BY MOUTH EVERY DAY Rx Instructions: TAKE 1 TABLET BY MOUTH EVERY DAY atorvastatin 40 mg tablet 40 mg PO DAILY Qty: 90 3RF Eliquis 5 mg tablet 5 mg PO BID Qty: 60 5RF budesonide-formoterol [Symbicort] 160-4.5 mcg/actuation HFA aerosol inhaler See Rx Instructions .ROUTE .COMPLEX Qty: 10.2 5RF Dose Instruction: INHALE 2 PUFFS BY MOUTH TWICE A DAY. RINSE AND SPIT AFTER USE Rx Instructions: INHALE 2 PUFFS BY MOUTH TWICE A DAY. RINSE AND SPIT AFTER USE finasteride 5 mg tablet See Rx Instructions .ROUTE .COMPLEX Qty: 30 9RF Dose Instruction: TAKE 1 TABLET BY MOUTH EVERY DAY Rx Instructions: TAKE 1 TABLET BY MOUTH EVERY DAY ipratropium-albuterol 0.5 mg-3 mg(2.5 mg base)/3 mL solution for nebulization See Rx Instructions .ROUTE .COMPLEX Qty: 360 3RF Dose Instruction: INHALE 3 ML VIA NEBULIZER FOUR TIMES DAILY NEEDED FOR SHORTNESS OF BREATH OR WHEEZING Rx Instructions: INHALE 3 ML VIA NEBULIZER FOUR TIMES DAILY NEEDED FOR SHORTNESS OF BREATH OR WHEEZING albuterol sulfate 90 mcg/actuation HFA aerosol inhaler See Rx Instructions .ROUTE .COMPLEX Qty: 8.5 3RF Dose Instruction: INHALE 1-2 PUFF(S) BY MOUTH EVERY 4 - 6 HOURS NEEDED FOR SHORTNESS OF BREATH OR WHEEZING Rx Instructions: INHALE 1-2 PUFF(S) BY MOUTH EVERY 4 - 6 HOURS NEEDED FOR SHORTNESS OF BREATH OR WHEEZING Discontinued cefdinir 300 mg capsule 300 mg PO DAILY Date of admission: 10/24/25 17:04 Primary Care Provider: Matthew Mccabe Admitting Provider: Ramona Mora Attending physician on admission: Ramona Mora Condition: Stable
== END 2025-10-27 14:20 | disposition home or self-care (01) ==
LOC: ANHED 13:14 → ANH3MEDSUR 17:25
PROVIDERS: Emergency Medicine; Nurse Practitioner; Student in an Organized Health Care Education/Training Program; Admitting Provider Internal Medicine; Emergency Provider Student in an Organized Health Care Education/Training Program; PCP Family Medicine Adolescent Medicine; Visit Provider Internal Medicine
DX: A41.9 Sepsis, unspecified organism (principal); J18.9 Pneumonia, unspecified organism; C34.92 Malignant neoplasm of unspecified part of left bronchus or lung; J44.89 Other specified chronic obstructive pulmonary disease; I48.0 Paroxysmal atrial fibrillation; I10 Essential (primary) hypertension; H40.9 Unspecified glaucoma; Z96.651 Presence of right artificial knee joint; F17.210 Nicotine dependence, cigarettes, uncomplicated; F41.8 Other specified anxiety disorders; Z79.01 Long term (current) use of anticoagulants; Z20.822 Contact with and (suspected) exposure to COVID-19
CPT/HCPCS: 36415; 36600; 71046; 71275; 80048; 80053; 82805; 82948; 83605; 84145; 85018; 85025; 85027; 87040; 87637; 93005; 94640; 96365; 96366; 96367; 96374; 96375; 99285; A9270; G0378; G0379; J0696; J2919; J7030; J7512; Q9967

== ENCOUNTER 2025-10-29 11:34 | Emergency (ER) | payer OTHER, SELFPAY ==
--- OUTSIDE RECORDS SUMMARY | 2008-05-10 18:00 | XMS_ITS | Continuity of Care Document ---
Author Organization [facility] Address [address] [place] [address] Phone Care Team Providers Care Decatizer Name Role Phone Unavailable Unavailable Unavailable Medications Medication Instructions Dosage Effective Dates (start - stop) Status Comments Prevacid 30 mg Cap PREVACID [address] # 30<><> 1 TAB by mouth (PO) each morning.<><><>DISPENSE : 30 day supply.<>REFILLS: 0<>Provider: CATERINA SOLER MD<> SIGNATURE ON FILE <><> PLEASE HOLD FOR PATIENT PICK-UP - Active Norvasc 5 mg Tab AMLODIPINE BESYLATE 5 MG TAB # 30<><> 1 TAB by mouth (PO) every day.<><><>DISPENSE: 30 day supply.<>REFILLS: 0<>Provider: CATERINA SOLER MD<> SIGNATURE ON FILE <><> PLEASE HOLD FOR PATIENT PICK-UP - Active Seroquel 100 mg Tab SEROQUEL 100 MG TABL ET # 30<><> 1 TAB by mouth (PO) every day.<><>IN PLACE OF ABILIFY<><>DISPENSE: 30 day supply.<>REFILLS: 0<>Provider: CATERINA SOLER MD<> SIGNATURE ON FILE <><> PLEASE HOLD FOR PATIENT PI - Active aspirin 325 mg Tab, Delayed Release ASPIRIN 325 MG TABLET EC # 30<><> 1 TAB by mouth (PO) every day.<><><>DISPENSE: 30 day supply.<>REFILLS: 0<>Provider: CATERINA SOLER MD<> SIGNATURE ON FILE <><> PLEASE HOLD FOR PATIENT PICK-UP <><> - Active Procedures Procedure Date HOME VST EST PT LOW TO MOD SEVERITY OFFICE CONSULT, 15 MIN, 3 KE Y COMPS: PROB FOCUS HX; PROB FOCUS EXAM; STRTFWD HOME VST EST PT LOW TO MOD SEVERITY HOME VST NEW PT HI SEVERITY Office Visit (No Chrg) Advance Directives Directive Yes / No Effective Date File Name No Information Encounters Encounter Description Practice Location Reason(s) For Visit Diagnoses Date Provider Providers Copied on Encounter HOME VST EST PT LOW TO MOD SEVERITY [facility] , [address], [place], [place], [id number], tel:[phone] [facility] OTHER SPECFD COUNSELING 8 No Information [facility] , [address], [place], [place], [address], [place] tel:[phone] [facility] No Information 8 No Information OFFICE CONSULT, 15 MIN, 3 RODRIGUEZ COMPS: PROB FOCUS HX; PROB FOCUS EXAM; [facility] , [address], [place], [place], [address], [place] tel:[phone] [facility] COUNSELING NOS 8 No Information HOME VST EST PT LOW TO MOD SEVERITY [facility] , [address], [place], [place], [address], [place] tel:[phone] [facility] OTHER SPECFD COUNSELING 8 No Information HOME VST NEW PT HI SEVERITY [facility] , [address], [place], [place], [address], [place] tel:[phone] [facility] DRUG ABUSE NEC-UNSPECDEPRES SIVE DISORDER NECHYPERTENSION NOS 8 No Information [facility] , [address], [place], [place], [address], [place] tel:[phone] DENTAL EXAMINATION 8 No Information Family History Family Member Type Diagnosis Age At Onset No Information Payers Payer name Insurance type Covered libertarian ID Authoriza tion(s) No Information Social History Type Description Quantity Date Captured Comments Sex Male Smoking Status No Information Chief Complaint And Reason For Visit No Information Reason For Referral Reason For Referral No Information History Of Present Illness Encounter Date Complaint History Of Prese nt Illness No Information Functional Status Date Functional Assessmen t No Information Instructions Date Instruction Additional Infor mation No Information Assessments Type Assessment Date No Information Patient Care Teams Name Effective Dates (start - stop) Status Members No Information
--- OUTSIDE RECORDS SUMMARY | 2008-05-10 18:00 | XMS_ITS | Continuity of Care Document ---
Author Organization [facility] Address [address] [place] [address] Phone Care Team Providers Care Derrick Boat Operator Name Role Phone Unavailable Unavailable Unavailable [...] VST EST PT LOW TO MOD SEVERITY [facility] , [address], [place], [place], [address], tel:[phone] [facility] OTHER SPECFD COUNSELING 8 No Information [facility] , [address], [place], [place], [address], [place] tel:[phone] [facility] No Information 8 No Information OFFICE CONSULT, 15 MIN, 3 RODRIGUEZ COMPS: PROB FOCUS HX; PROB FOCUS EXAM; [facility] [employer] , [address], [place], [place], [address], [place] tel:[phone] [facility] COUNSELING NOS 8 No Information HOME VST EST PT LOW TO MOD SEVERITY [facility] , [address], [place], [place], [address], [place] tel:[phone] [facility] OTHER SPECFD COUNSELING 8 No Information HOME VST NEW PT HI SEVERITY [facility] , [address], [place], [place], [address], [place] tel:[phone] [facility] DRUG ABUSE NEC-UNSPECDEPRES SIVE DISORDER NECHYPERTENSION NOS 8 No Information [employer] [facility] , [address], [place], [place], [address], [place] tel:[phone] [facility] DENTAL EXAMINATION 8 No Information Family History Family Member Type Diagnosis Age At Onset No Information Payers Payer name Insurance type Covered constitution party ID Authoriza tion(s) No Information Social [...]
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
[2025-10-29] VITALS (9 sets, daily range): BP systolic 134–150; BP diastolic 93–107; PULSE 93–98; RESP 16–20; TEMP 36.9–37.1; O2SAT 100
--- NOTE | ~2025-10-29 | CT_ITS ---
EXAMINATION: CT brain wo con DATE: 10/29/2025 15:23 INDICATION: Left-sided headache TECHNIQUE: Computed tomography (CT) of the head was performed without intravenous contrast. Sagittal and coronal reconstructions were performed. The mA was adjusted according to patient size. Iterative reconstruction technique was employed. The dose-length product was 605.33 mGy-cm. COMPARISON: None FINDINGS: No acute intracranial hemorrhage, acute infarction or abnormal extra axial fluid collection. There is moderate scattered white matter hypoattenuation consistent with chronic small vessel ischemic disease. Ventricles are normal and symmetric. No mass/mass effect. Mild mucosal thickening the left maxillary and right frontal sinuses and at the bilateral frontoethmoidal recesses. The orbits and mastoid air cells are normal. IMPRESSION: 1. Moderate scattered nonspecific white matter hypoattenuation consistent with chronic small vessel ischemic disease. No acute intracranial process. Reviewed, dictated and finalized at location A. HER PRODUCTION
--- NOTE | ~2025-10-29 | CT_ITS ---
EXAMINATION: CTA chest PE abdomen pel DATE: 10/29/2025 15:33 INDICATION: Lung cancer. Recent pneumonia with worsening shortness of breath. TECHNIQUE: Computed tomography (CT) pulmonary angiogram of the chest was performed with 100 mL Omnipaque-350 intravenous contrast. Additional 3D reconstructions utilizing coronal maximum intensity projection (MIP) were performed. CT of the abdomen and pelvis was performed with intravenous contrast utilizing the same contrast bolus following a short delay. Automated exposure control and iterative reconstruction technique were employed. The dose-length product was 1224.90 mGy-cm. COMPARISON: Chest CT dated 10/24/2025 FINDINGS: Chest: No pulmonary embolism. Mild emphysema. Chronic irregular septal line thickening with peripheral and right lung predominance with some associated honeycombing suggestive of usual interstitial pneumonia (UIP) pattern chronic initial lung disease. There are some associated mild bronchiectasis also with right lung predominance. No significant change in a 1.6 cm subpleural nodule in the posterior basilar right lower lobe. Again seen is extensive mucous plugging throughout many of the bronchi in the left upper lobe with some scattered linear and bandlike discoid atelectasis. Soft tissue density suggestive of confluent metastatic lymphadenopathy in the mediastinum and bilateral hilar regions. At the left hilum this encases and mildly narrows the left main pulmonary artery and narrows the common bronchus supplying the left upper lobe and lingula. 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 No pulmonary edema, pleural effusion or definitive pneumonia. Heart size is normal. No pericardial effusion. Thoracic aorta is normal in caliber with no dissection. Moderate thoracic spondylosis. Again seen is a subacute likely pathologic fracture of the sternum extending across the central lytic lesion. Abdomen/pelvis: Several scattered small hepatic and splenic calcifications consistent with old granulomatous disease. 1 cm cyst in segment IVb of the liver. Gallbladder, pancreas and right kidney are normal. 3.5 cm left renal cyst. Bilateral adrenal masses measuring 4.8 x 2.3 cm on the right and 3.5 x 3.0 cm on the left concerning for metastatic disease. Bowels are unremarkable with no wall thickening or obstruction. Bladder is normal. No free intraperitoneal gas or fluid. No pathologically enlarged abdominal or pelvic lymphadenopathy. There is calcified atherosclerosis of the aorta and many of the other arteries. Severe spondylosis at L5-S1 and mild to moderate spondylosis and more cephalad lumbar spine with chronic L1 and L2 superior endplate compression fractures. Advanced left hip osteoarthritis. Old healed fracture of the right pubic body and superior pubic ramus. IMPRESSION: 1. No pulmonary embolism or other acute cardiopulmonary disease or acute intra- abdominal/pelvic process. 2. Mild emphysema with right lung predominant chronic initial lung disease with UIP pattern. 3. 1.6 cm right lower lobe nodule concerning for primary bronchogenic carcinoma with confluent mediastinal and bilateral hilar lymphadenopathy and bilateral adrenal masses consistent with metastatic disease. 4. Unchanged ununited sternal fracture which appears to extend through a lytic lesion concerning for metastatic disease. Reviewed, dictated and finalized at location A. MENT REMEDIATION CONSULTANT IMPRESSION: 1. No pulmonary embolism or other acute cardiopulmonary disease or acute intra- abdominal/pelvic process. 2. Mild emphysema with right lung predominant chronic initial lung disease with UIP pattern. 3. 1.6 cm right lower lobe nodule concerning for primary bronchogenic carcinoma with confluent mediastinal and bilateral hilar lymphadenopathy and bilateral a drenal masses consistent with metastatic disease. 4. Unchanged ununited sternal fracture which appears to extend through a lytic lesion concerning for metastatic disease.
--- NOTE | ~2025-10-29 | XR_ITS ---
XR chest 1V portable 10/29/2025 14:53 Indication: Shortness of breath. History of lung cancer. Procedure: AP portable chest Comparison: Comparison to multiple prior studies sequentially, with oldest reviewed study dated 02/25/2025. Findings: Stable cardiomegaly. 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 Chronic interstitial infiltrates bilaterally, predominantly perihilar. No significant effusion. No pneumothorax. Portacatheter tip in the SVC. Impression: 1: Chronic bilateral interstitial infiltrates which most likely represents edema. Reviewed, dictated and finalized at location O. CATESSEN CLERK Impression: 1: Chronic bilateral interstitial infiltrates which most likely represents elio a.
--- NOTE | 2025-10-29 11:41 | ECG_ITS ---
Test Date: 2025-10-29 11:54:48 Measurements Intervals [place] Rate: 93 P: 36 CT: 134 QRS: -5 QRSD: 98 T: 37 QT: 384 QTc: 480 Interpretive Statements SINUS RHYTHM NORMAL ECG Compared to ECG 10/24/2025 12:59:42 HEART RATE HAS DECREASED Electronically Signed On 10-29-2025 21:29:22 ELECTRICAL LOGGING OPERATOR by Ian Lopez D.O.
--- OUTSIDE RECORDS SUMMARY | 2025-10-29 11:49 | XMS_ITS | Encounter Summary ---
Author Organization [facility] - [facility] Address [facility] [place] [address] Care Team Providers Care Industrial Workers Name Role Phone Amilcar Osorio MD Primary Care Provider [phone] Monica Tellez NP Primary Care Provider [phone] Natalie Baum BRAKE REPAIRER Primary Care Provider [phone] Encounter Details Date Type Department Care Team (Late st Contact Info) Description 07/03/2018 Abstract [facility] Medical Group Multispecialty Care - [facility] [address] [facility] [place] [address] Gina Fleming APNP [address] [place] [address] Social History Tobacco Use Types Packs/Day Years [...] filedocumented in this encounter Care Teams Industrial Workers Relationship Specialty Start Date End Date Amilcar Osorio MD [address] [facility], [address] [address] PCP - General 05/01/17 09/04/19 Monica Tellez NP [address] [place] [id number] PCP - General NURSE PRACTITIONER 09/05/19 01/18/25 Natalie Baum NP [address] [place] [address] PCP - General FAMILY PRACTICE 01/19/25 documented as of this encounter
--- OUTSIDE RECORDS SUMMARY | 2025-10-29 11:49 | XMS_ITS | Clinical Summary ---
Author Organization [facility] Address [address] [place] [address] Care Team Providers Care Lease Operator Name Role Phone Katina Casiano DO Unavailable [phone] Tracey Ang PA Unavailable Unavailable Natalie Baum Primary Care Provider [phone] Source Comments [facility],non-owned Affiliates and Associated Physician Practices is amultiple site organization consisting of ambulatory clinics and hospital sitesin [place], [place], [place] and [place]. This disclosure is being madepursuant to the Care Everywhere program and may not contain all information available regarding this patient. Last updated 18.[facility] Allergies Active Allergy Reactions Criticality Noted Date [...] MG/3ML) 0.083% nebulizer solutionIndicati ons:Centrilobula r emphysema (HCC),Asthma-TELEPHONE MAINTAINER D overlap syndrome (HCC) Inhale 2.5 (two [...] Active Symbicort 160-4.5 MCG/ACT inhalerIndicatio ns:Centrilobular emphysema (HCC),Asthma-TELEPHONE MAINTAINER D overlap syndrome (HCC) Inhale 2 (two) puffs by mouth once daily 10.2 g 3 3 Active albuterol HFA (Proventil; Ventolin; Proair) 108 (90 Base) MCG/ACT inhalerIndicatio ns:Centrilobular emphysema (HCC),Asthma-TELEPHONE MAINTAINER D overlap syndrome (HCC) Inhale 2 (two) [...] Assessment & Plan (01/04/2023 2:27 PM LEGAL WORD PROCESSOR): - sleep study pending Fatigue 01/04/2023 Assessment & Plan (01/04/2023 2:28 PM LEGAL WORD PROCESSOR): - Check TSH - pending sleep study [...] Assessment & Plan (01/04/2023 2:26 PM LEGAL WORD PROCESSOR): - Due for TDap, Zoster, Covid outside [...] Assessment & Plan (01/04/2023 2:19 PM LEGAL WORD PROCESSOR): - Will try to resend Eplerenone, previously [...] Assessment & Plan (01/04/2023 2:26 PM LEGAL WORD PROCESSOR): - Likely sleep-related, obesity, SHAYNE - Cont. PPI Sleep choking syndrome 01/05/2022 PND (paroxysmal nocturnal dyspnea) 01/05/2022 Bipolar affective disorder 12/24/2021 Back pain 12/24/2021 Family history of other specified conditions Asthma-COPD overlap syndrome 11/11/2021 Assessment & Plan (01/04/2023 2:18 PM LEGAL WORD PROCESSOR): - Tob cessation Chronic midline low back pain without sciatica 0 11/09/2021 Lumbosacral disc disease 11/09/2021 Foraminal stenosis of lumbar region 11/09/2021 Heart failure with reduced ejection fraction 09/2021 Assessment & Plan (05/30/2023 3:04 PM CDT): HF with EF recovered to normal. Continue current treatment. Assessment & Plan (01/04/2023 2:16 PM LEGAL WORD PROCESSOR): - See HTN above - Pt not [...] Assessment & Plan (01/04/2023 2:15 PM LEGAL WORD PROCESSOR): - Stable, despite holding spirono due to [...] Assessment & Plan (01/04/2023 2:13 PM LEGAL WORD PROCESSOR): - Encouraged cessation, ready to quit - [...] [facility] - [facility] [address] [facility] [address] [place] [address] Kyra Lawrence, RUSS-HOUSING INSPECTOR Refill Request from Last 3 Months Immunizations [...] on file 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 LEGAL WORD PROCESSOR Gender Identity Not on file Sexual [...] COLON, SCREENING Routine 12/07/2022 10:04 AM LEGAL WORD PROCESSOR COMPREHENSIVE METABOLIC PANEL Routine 08/09/2022 1:47 PM CDT Weight loss HEPATITIS C AB W/RFLX TO HCV RNA QN PCR 09/19/2019 9:17 AM LEGAL WORD PROCESSOR from Last 3 Months or Most Recently Relevant to Health Maintenance Results * ENDOSCOPY, COLON, SCREENING (12/07/2022 10:04 AM LEGAL WORD PROCESSOR) Report Endoscopy POC Endoscopy Department Report _ [...] entire procedure. Procedure Code(s): --- Professional --- 47905, Colonoscopy, flexible; with removal of tumor(s), polyp(s), or other lesion(s) by snare technique Diagnosis Code(s): --- Professional --- Z86.010, Personal history of colonic polyps K63.5, Polyp of colon Z80.0, Family history of malignant neoplasm of digestive organs CPT copyright 2019 [employer]. All rights reserved. The codes documented in this report are preliminary and upon collections professional review may be revised to meet current compliance requirements. Tal Mccormick, 12/07/2022 10:49:20 AM Note Initiated On: 12/07/2022 10:04 AM Number of Addenda: [address] PROVATION 12/07/2022 10:0 4 AM LEGAL WORD PROCESSOR [facility] Tal Mccormick MD GI PROCEDURE O RDERABLES Edited Result - Final [facility] [employer] * (ABNORMAL) COMPREHENSIVE METABOLIC PANEL (08/09/2022 [...] 46 U/L [facility] Comment: Test Performed at: [facility] [id number] [place] [address] PRUDENCIO ALDANA DO,MPH Blood BLOOD SPECIMEN / Unknown 08/09/2022 1:47 PM CDT 08/09/2022 1:50 PM CDT Ian Pollock MD LAB - CHEMISTRY ORDERABLES Fin al Result [facility] [id number] [place] [address] * HEPATITIS C AB W/RFLX TO HCV RNA QN PCR (09/19/2019 9:17 AM LEGAL WORD PROCESSOR) Hepatitis C Antibody NON-REACTI VE NON-REACT FELY [facility] Signal to Cut-Off 0.03 <1.00 [facility] Comment: HCV antibody was non-reactive. There is no laboratory evidence of HCV infection. In most cases, no further action is required. However, if recent HCV exposure is suspected, a test for HCV RNA (test code 74056) is suggested. For additional information please refer to http://education.Aircom/faq/OLD83p4 (This link is being provided for informational/ educational purposes only.) Test Performed at: [facility] [address] [place] [address] PRUDENCIO ALDANA DO,MPH 09/19/2019 9:17 AM LEGAL WORD PROCESSOR 09/19/2019 9:21 AM LEGAL WORD PROCESSOR Monica Tellez JOCKEY ROOM CUSTODIAN-HOUSING INSPECTOR LAB - CHEMISTRY ORD ERABLES Final Result [facility] [id number] [place] [address] from Last 3 Months or Most Recently Relevant to Health Maintenance Insurance [facility] Advance Directives Documents on File Type Date Recorded 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
--- OUTSIDE RECORDS SUMMARY | 2025-10-29 11:49 | XMS_ITS | Encounter Summary ---
Author Organization [facility] Address [address] [place] [address] Care Team Providers Care Bending Shed Worker Name Role Phone Ian Pollock MD Primary Care Provider [phone] Katina Casiano DO Unavailable [phone] Xavi ACOSTA MD, Jameel R Primary Care Provider + Katina Casiano DO Unavailable [phone] Tracey Ang Unavailable Unavailable Belkis Angel POLYGRAPH EXAMINER-REINSTATEMENT CLERK Primary Care Provider + Natalie Baum Primary Care Provider [phone] Reason for Visit * Reason Onset Date Comments Letter 12/02/2020 Encounter Details Date Type Department Care Team (Late st Contact Info) Description 12/02/2020 Telephone [facility] [address] [place] [address] Agnieszka Haas MD [address] [place] [address] Letter Social History Tobacco Use Types Packs/Day Years Used Date Smoking Tobacco: Every Day Cigarettes 1 30 Smokeless Tobacco: Never Alcohol Use Standard Drinks/Week Comments Yes 6 (1 standard drink = 0.6 oz pure alcohol) beer madi. 25 oz 3 times a week Sex and Gender Information Value Date Recorded Sex Assigned at Not on file 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 IT SECURITY PROJECT MANAGER Gender Identity Not on file Sexual Orientation Not on file Occupation Industry Job Start Date Job End Date disability Not on file Not on file Not on file COVID-19 Exposure Response Date Recorded In the last month, have you been in contact with someone who was confirmed or suspected to have Coronavirus / COVID-19? Unable to assess 11/18/2020 1:41 PM IT SECURITY PROJECT MANAGER documented as of this encounter Functional [...] vaccine sooner Thanks. Patient Call Back number: [phone] SECURITY PROJECT MANAGER documented in this encounter Plan of [...] on filedocumented in this encounter Care Teams Bending Shed Worker Relationship Specialty Start Date End Date Ian Pollock MD [address] DIV OF [facility] [place] [address] PCP - General 08/21/20 05/29/23 Jameel Hurley III, MD [address] DIV OF [facility] [place] [phone] PCP - General Internal Medicine 06/05/23 08/28/23 Belkis Angel APRN-REINSTATEMENT CLERK [address] [place] [phone] PCP - General Nurse Practitioner 08/29/23 05/05/24 Natalie Baum [address] [place] [address] PCP - General 05/06/24 Katina Casiano DO [address] DIV OF [facility] INTERNAL [place], [place] Resident - PCP Internal Medicine 08/10/22 05/29/23 Katina Casiano DO [address] DIV OF [facility] INTERNAL MEDICINE [place], [place] Hospitalist 06/05/23 Tracey Ang PA [address] DIV OF [facility] [place] [address] Physician Lab Technologist 08/15/23 documented as of this encounter
--- OUTSIDE RECORDS SUMMARY | 2025-10-29 11:49 | XMS_ITS | Encounter Summary ---
Author Organization [facility] Address [facility] [place] [address] Care Team Providers Care Stenciling Machine Tender Name Role Phone Amilcar Osorio MD Primary Care Provider [phone] Monica Tellez NP Primary Care Provider [phone] Natalie Baum CONVENIENCE RECYCLE CENTER TECH Primary Care Provider + [phone] Encounter Details Date Type Department Care Team (Late st Contact Info) Description 04/09/2018 Hosp Visit [facility] Outpatient Therapy THREE [facility] [place] [facility] [address] [place], [place] [address] Grecia Hess, [place] [address] Social History Tobacco Use Types Packs/Day Years [...] on filedocumented in this encounter Care Teams Stenciling Machine Tender Relationship Specialty Start Date End Date Amilcar Osorio MD [address], [address] [address] PCP - General 05/01/17 09/04/19 Monica Tellez CONVENIENCE RECYCLE CENTER TECH [address] [address] PCP - General NURSE PRACTITIONER 09/05/19 01/18/25 Natalie Baum NP [address] [place] [address] PCP - General FAMILY PRACTICE 01/19/25 documented as of this encounter
--- OUTSIDE RECORDS SUMMARY | 2025-10-29 11:49 | XMS_ITS | Encounter Summary ---
Author Organization [facility] Address [address] [facility] [place] [address] Care Team Providers Care Hop Grower Name Role Phone Ian Pollock MD Primary Care Provider [phone] Katina Casiano DO Unavailable [phone] Xavi ACOSTA MD, Jameel R Primary Care Provider + Katina Casiano DO Unavailable [phone] Tracey Ang Unavailable Unavailable Belkis Angel WORDPRESS DEVELOPER-MANAGER PRIVATE Primary Care Provider + Natalie Baum Primary Care Provider [phone] Reason for Visit * Reason Onset Date Comments Refill Request 04/13/2021 Encounter Details Date Type Department Care Team (Late st Contact Info) Description 04/13/2021 Telephone [facility] [address] [place], [place] [id number] Ian Pollock MD [address] [place] [address] Refill Request Social History Tobacco Use Types Packs/Day Years Used Date Smoking Tobacco: Every Day Cigarettes 1 30 Smokeless Tobacco: Never Alcohol Use Standard Drinks/Week Comments Yes 6 (1 standard drink = 0.6 oz pure alcohol) beer madi. 25 oz 3 times a week Sex and Gender Information Value Date Recorded Sex Assigned at Not on file 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 RECOVERY SPECIALIST Gender Identity Not on file Sexual [...] to be refilled. Patient Call Back number: [phone] documented in this encounter Plan of Treatment [...] sciatica documented in this encounter Care Teams Hop Grower Relationship Specialty Start Date End Date Ian Pollock MD [address] DIV OF [facility] [place] [address] PCP - General 08/21/20 05/29/23 Jameel Hurley III, MD [address] DIV OF [facility] [place] [phone] PCP - General Internal Medicine 06/05/23 08/28/23 Belkis Angel, WORDPRESS DEVELOPER-MANAGER PRIVATE [address] [place] [address] [address] [place] [address] PCP - General Nurse Practitioner 08/29/23 05/05/24 Natalie Baum [address] [place] [address] PCP - General 05/06/24 Katina Casiano DO [address] DIV OF [facility] INTERNAL MEDIC[facility] [place], [place] Resident - PCP Internal Medicine 08/10/22 05/29/23 Katina Casiano DO [address] DIV OF [facility] [place], [place] Hospitalist 06/05/23 Tracey Ang PA [address] [facility] [address] DIV [place] [address] Physician Organ Installer 08/15/23 documented as of this encounter
--- OUTSIDE RECORDS SUMMARY | 2025-10-29 11:49 | XMS_ITS | Encounter Summary ---
Author Organization [facility] Address [address] [facility] [place] [address] Care Team Providers Care Office Analyst Name Role Phone Ian Pollock MD Primary Care Provider Katina Casiano DO Unavailable [phone] Xavi ACOSTA MD, Jameel Gaviria Primary Care Provider + Katina Casiano DO Unavailable [phone] Tracey Ang PA Unavailable Unavailable Belkis Angel HEAVY EQUIPMENT TECHNICIAN-PYROTECHNICS PRESS TENDER Primary Care Provider + Natalie Baum Primary Care Provider [phone] Encounter Details Date Type Department Care Team (Late st Contact Info) Description 04/22/2021 Telephone [facility] [address] [place] [address] Kezia Hollis MD [address] OF PULMONARY/[place] [address] Social History Tobacco Use Types Packs/Day Years Used Date Smoking Tobacco: Every Day Cigarettes 1 30 Smokeless Tobacco: Never Alcohol Use Standard Drinks/Week Comments Yes 6 (1 standard drink = 0.6 oz pure alcohol) beer madi. 25 oz 3 times a week Sex and Gender Information Value Date Recorded Sex Assigned at Not on file 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 TERMITE EXTERMINATOR Gender Identity Not on file Sexual Orientation [...] stay with Dr. Hollis? Call Back #: [phone] documented in this encounter Plan of Treatment [...] filedocumented in this encounter Care Teams Office Analyst Relationship Specialty Start Date End Date Ian Pollock MD [address] DIV OF [facility] [place] [address] PCP - General 08/21/20 05/29/23 Jameel Hurley III, MD [address] DIV OF [facility] [place] [phone] PCP - General Internal Medicine 06/05/23 08/28/23 Belkis Angel APRN-PYROTECHNICS PRESS TENDER [address] [place] [phone] PCP - General Nurse Practitioner 08/29/23 05/05/24 Natalie Baum [address] [place] [address] PCP - General 05/06/24 Katina Casiano DO [address] DIV OF [facility] INTER[facility] [place], [place] Resident - PCP Internal Medicine 08/10/22 05/29/23 Katina Casiano DO [address] DIV OF [facility] [place], [place] Hospitalist 06/05/23 Tracey Ang PA [address] DIV OF [facility] [place] [address] Physician Fight Manager 08/15/23 documented as of this encounter
--- OUTSIDE RECORDS SUMMARY | 2025-10-29 11:49 | XMS_ITS | Encounter Summary ---
Author Organization [facility] Address formerly [facility] [place] [address] Care Team Providers Care Solid State Tester Name Role Phone Amilcar Osorio MD Primary Care Provider [phone] Monica Tellez NP Primary Care Provider [phone] Natalie Baum HAND MOLDER AND CASTER Primary Care Provider + [phone] Encounter Details Date Type Department Care Team (Late st Contact Info) Description 04/09/2018 Hosp Visit [facility] Outpatient Therapy THREE [facility] [address] [place], [place] [address] Grecia Hess, [place] [address] Social History Tobacco Use Types Packs/Day Years [...] filedocumented in this encounter Care Teams Solid State Tester Relationship Specialty Start Date End Date Amilcar Osorio MD [address], [address] [address] PCP - General 05/01/17 09/04/19 Monica Tellez HAND MOLDER AND CASTER [address] [address] PCP - General NURSE PRACTITIONER 09/05/19 01/18/25 Natalie Baum NP [address] [place] [address] PCP - General FAMILY PRACTICE 01/19/25 documented as of this encounter
--- OUTSIDE RECORDS SUMMARY | 2025-10-29 11:49 | XMS_ITS | Encounter Summary ---
Author Organization [facility] Address [facility] [place] [address] Care Team Providers Care Disability Program Navigator Name Role Phone Amilcar Osorio MD Primary Care Provider [phone] Monica Tellez NP Primary Care Provider [phone] Natalie Baum ELEMENTARY SPANISH TEACHER Primary Care Provider + [phone] Encounter Details Date Type Department Care Team (Late st Contact Info) Description 04/16/2018 Hosp Visit [facility] Outpatient Therapy THREE [facility] [address] [place], [place] [address] Grecia Hess, [place] [address] Social History Tobacco Use Types Packs/Day Years [...] on filedocumented in this encounter Care Teams Disability Program Navigator Relationship Specialty Start Date End Date Amilcar Osorio MD [address], [address] [address] PCP - General 05/01/17 09/04/19 Monica Tellez ELEMENTARY SPANISH TEACHER [address] [address] PCP - General NURSE PRACTITIONER 09/05/19 01/18/25 Natalie Baum NP [address] [place] [address] PCP - General FAMILY PRACTICE 01/19/25 documented as of this encounter
--- OUTSIDE RECORDS SUMMARY | 2025-10-29 11:49 | XMS_ITS | Encounter Summary ---
Author Organization [facility] Address [facility] [place] [address] Care Team Providers Care Parachute Repairer Name Role Phone Amilcar Osorio MD Primary Care Provider [phone] Monica Tellez NP Primary Care Provider [phone] Natalie Baum FREIGHT UNLOADER Primary Care Provider + [phone] Encounter Details Date Type Department Care Team (Late st Contact Info) Description 04/02/2018 Hosp Visit [facility] Outpatient Therapy THREE [facility] [address] [place], [place] [address] Grecia Hess, [place] [address] Social History Tobacco Use Types Packs/Day Years [...] on filedocumented in this encounter Care Teams Parachute Repairer Relationship Specialty Start Date End Date Amilcar Osorio MD [address], [address] [address] PCP - General 05/01/17 09/04/19 Monica Tellez FREIGHT UNLOADER [address] [address] PCP - General NURSE PRACTITIONER 09/05/19 01/18/25 Natalie Baum NP [address] [place] [address] PCP - General FAMILY PRACTICE 01/19/25 documented as of this encounter
--- OUTSIDE RECORDS SUMMARY | 2025-10-29 11:50 | XMS_ITS | Encounter Summary ---
Author Organization [facility] Address [address] [facility] [place] [address] Care Team Providers Care Defense Attorney Name Role Phone Ian Pollock MD Primary Care Provider [phone] Katina Casiano DO Unavailable [phone] Xavi ACOSTA MD, Jameel R Primary Care Provider + Katina Casiano DO Unavailable [phone] Tracey Ang PA Unavailable Unavailable Belkis Angel POLE FRAME CONSTRUCTION WORKER-ASSISTANT SPEECH LANGUAGE PATHOLOGIST Primary Care Provider + Natalie Baum Primary Care Provider [phone] Encounter Details Date Type Department Care Team (Late st Contact Info) Description 02/18/2022 Telephone [facility] Sleep Medicine [address] [place] [phone] Agnieszka Haas MD [address] [place] [address] Social History Tobacco Use Types Packs/Day Years [...] on file 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 BUTTER PRODUCTION SUPERVISOR Gender Identity Not on file Sexual [...] Assessment Author No 01/20/2021 3:30 PM CDT Salyl Hinds RN * Does person have difficulty [...] review with him. Patient Call Back number: [phone] documented in this encounter Plan of Treatment [...] on filedocumented in this encounter Care Teams Defense Attorney Relationship Specialty Start Date End Date Ian Pollock MD [address] DIV [place] [address] PCP - General 08/21/20 05/29/23 Jameel Hurley III, MD [address] DIV OF [facility] [place] [address] PCP - General Internal Medicine 06/05/23 08/28/23 Belkis Angel, POLE FRAME CONSTRUCTION WORKER-ASSISTANT SPEECH LANGUAGE PATHOLOGIST [address] [phone] PCP - General Nurse Practitioner 08/29/23 05/05/24 Natalie Baum [address] [place] [address] PCP - General 05/06/24 Katina Casiano DO [address] DIV OF [facility] INTERNAL MEDICINE [place], [place] Resident - PCP Internal Medicine 08/10/22 05/29/23 Katina Casiano DO [address] DIV OF [facility] INTERNAL MEDICINE [place], [place] Hospitalist 06/05/23 Tracey Ang PA [address] DIV OF [facility] [place] [address] Physician Roll Over Loader 08/15/23 documented as of this encounter
--- OUTSIDE RECORDS SUMMARY | 2025-10-29 11:50 | XMS_ITS | Encounter Summary ---
Author Organization [facility] Address [address] [place] [address] Phone Care Team Providers Care Fourth Hand Name Role Phone Matthew Mccabe MD Primary Care Prov ider Stan Meza MD Unavailable [phone] Natalie Baum NP Unavailable [phone] Encounter Details Date Type Department Care Team (Late st Contact Info) Description 10/28/2025 Telephone [facility] [address] [place] [address] Janice Kilgore CMA Social History Tobacco Use Types Packs/Day Years [...] on file Legal Sex Male 6:04 PM RIVER BOAT CAPTAIN Gender Identity Not on file Sexual Orientation Not on file documented as of this encounter Miscellaneous Notes * Telephone Encounter - Janice Kilgore CMA - 10/28/2025 8:57 AM CST Pt called to let us know that he was discharged and is home now .Called pt back let him know we will move his appointment back so he can finish his Abx. Pt is agreeable to this plan. R BOAT CAPTAIN documented in this encounter Plan of Treatment Not on file documented as of this encounter Visit Diagnoses Not on filedocumented in this encounter Care Teams Fourth Hand Relationship Specialty Start Date End Date Matthew Mccabe MD PCP - General Family Medicine 05/13/24 Stan Meza MD Medical Oncologist/Grade Tamper Medical Oncology 06/28/24 Natalie Baum NP [address] [place] [address] [place] [address] Nurse Practitioner Family Practice 03/26/25 documented as of this encounter
--- OUTSIDE RECORDS SUMMARY | 2025-10-29 11:50 | XMS_ITS ---
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 Protocol Amendment/tSan Gramajo MD Oncology Chemotherapy Treatment Plan Name Start Date Discontinue Date Treatment Medications Discontinue Reason Plan Provider Cycles DOCEtaxel 21 Day Cycles - Non-Small Cell Lung 07/10/20 25 10/09/2025 dexAMETHasone (DECADRON)DOCEtax el (TAXOTERE)DOCEtax el (TAXOTERE) IVPB in 250 mL (vial 20mg/mL) Progression Victoriano rn, MD Stan 4 of 6 cycles started [id number] [facility] - Phase 1 - VAISHALI-PEG 20 / Docetaxel / Gemcitabine 5 07/03/2025 DOCEtaxel (TAXOTERE)gemcita bine (GEMZAR)INV-[facility] VAISHALI-PEG 20 ( [id number]) Patient Preference Karin Zaman, PUBLIC HEALTH SANITARIAN TECHNICIAN 1 of 6 cycles started Pembrolizumab / [...]
--- OUTSIDE RECORDS SUMMARY | 2025-10-29 11:50 | XMS_ITS | Encounter Summary ---
Author Organization [facility] Address [address] [place] [address] Care Team Providers Care Procurement Consultant Name Role Phone Monica Tellez LIFE INSURANCE UNDERWRITER-MECHANICAL AND AUTO BODY CAR CHECKER Primary Care Provi cristobal Ian Pollock MD Primary Care Provider [phone] Ian Pollock MD Primary Care Provider [phone] Ian Pollock MD Primary Care Provider [phone] Ian Pollock MD Primary Care Provider [phone] Ian Pollock MD Primary Care Provider [phone] Katina Casiano DO Unavailable [phone] Xavi ACOSTA MD, Fred R Primary Care Provider + Katina Casiano DO Unavailable [phone] Tracey Ang Unavailable Unavailable Belkis Angel LIFE INSURANCE UNDERWRITER-MECHANICAL AND AUTO BODY CAR CHECKER Primary Care Provider + Natalie Baum Primary Care Provider [phone] Reason for Visit * Reason Onset Date Comments Forms/questionnaires 07/12/2019 [place] Encounter Details Date Type Department Care Team (Late st Contact Info) Description 07/12/2019 Telephone [facility] General Internal Medicine [address] [address] Monica Tellez LIFE INSURANCE UNDERWRITER-MECHANICAL AND AUTO BODY CAR CHECKER [address] [place] [address] Forms/questionnaires ([employer] transportation) Social History Tobacco Use [...] on file 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 Please advise. [phone] * Telephone Encounter - Shari Silvestre RN - 07/12/2019 1:11 PM CDT [facility] transportation form on your shelf. * Telephone Encounter - Hawa Allen - 07/12/2019 9:34 AM CDT Pt calling in to inform office that paperwork is on it's way from [place] concerning Medicare rides so pt can get transportation to and from [facility] appts. CB# [phone] Routed to [facility] Nurse Communication for further review documented in this encounter Plan of Treatment Not on file documented as of this encounter Visit Diagnoses Not on filedocumented in this encounter Care Teams Procurement Consultant Relationship Specialty Start Date End Date Monica Tellez APRN-MECHANICAL AND AUTO BODY CAR CHECKER PCP - General 07/03/19 11/13/19 Ian Pollock MD PCP - General 11/14/19 12/12/19 Ian Pollock MD PCP - General 12/13/19 05/25/20 Ian Pollock MD PCP - General 05/26/20 06/15/20 Ian Pollock MD [address] [facility] [place] [address] PCP - General 07/31/20 08/20/20 Ian Pollock MD [address] [facility] [place] [address] PCP - General 08/21/20 05/29/23 Jameel Hurley III, MD [address] [place] [address] PCP - General Internal Medicine 06/05/23 08/28/23 Belkis Angel, LIFE INSURANCE UNDERWRITER-MECHANICAL AND AUTO BODY CAR CHECKER [address] [place] [phone] PCP - General Nurse Practitioner 08/29/23 05/05/24 Natalie Baum [address] [place] [address] PCP - General 05/06/24 Katina Casiano DO [address] [facility] INTERNAL MEDICINE [place], [place] Resident - PCP Internal Medicine 08/10/22 05/29/23 Katina Casiano DO [address] [facility] INTER[facility] MEDIC[facility] [place], [place] Hospitalist 06/05/23 Tracey Ang PA [address] [facility] [address] [facility] [place] [address] Physician Ballpoint Pen Assembly Machine Operator 08/15/23 documented as of this encounter
--- OUTSIDE RECORDS SUMMARY | 2025-10-29 11:50 | XMS_ITS | Encounter Summary ---
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 Gender Identity Not on file Sexual Orientation Not on file documented as of this encounter Plan of Treatment Not on file documented as of this encounter Visit Diagnoses Not on filedocumented in this encounter Additional Health Concerns Infection Onset Date Last Indicated Resolved Time COVID: Suspected 08/29/2024 08/29/2024 08/29/2024 1:59 PM CDT documented as of this encounter Care Teams Center Rep Relationship Specialty Start Date End Date Matthew Mccabe MD PCP - General Family Medicine 05/13/24 Stan Meza MD Medical Oncologist/[facility] Former Medical Oncology 06/28/24 Natalie Baum NP [address] [facility] [place] [address] Nurse Practitioner Family Practice 03/26/25 documented as of this encounter
--- OUTSIDE RECORDS SUMMARY | 2025-10-29 11:50 | XMS_ITS | Encounter Summary ---
Author Organization [facility] Address [address] [place] [address] Care Team Providers Care Manual Writer Name Role Phone Ian Pollock MD Primary Care Provider [phone] Katina Casiano DO Unavailable [phone] Xavi ACOSTA MD, Fred R Primary Care Provider + Katina Casiano DO Unavailable [phone] Tracey Ang Unavailable Unavailable Belkis Angel STAFF DEVELOPMENT COORDINATOR RN-HAIR WORKER Primary Care Provider + Natalie Baum Primary Care Provider [phone] Reason for Visit * Reason Onset Date Comments Cardiac Rehab 02/23/2022 Encounter Details Date Type Department Care Team (Late st Contact Info) Description 02/23/2022 Telephone [facility] [address] [place] [address] Rama Lagos medication aid Social History Tobacco Use Types Packs/Day Years [...] on file 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 Gender Identity Not on file Sexual [...] on filedocumented in this encounter Care Teams Manual Writer Relationship Specialty Start Date End Date Ian Pollock MD [address] [facility] [address] [facility] [place] [address] PCP - General 08/21/20 05/29/23 Jameel Hurley III, MD [address] [facility] [place] [address] PCP - General Internal Medicine 06/05/23 08/28/23 Belkis Angel APRN-HAIR WORKER [address] [facility] [address] [place] [address] PCP - General Nurse Practitioner 08/29/23 05/05/24 Natalie Buam [address] [place] [address] PCP - General 05/06/24 Katina Casiano DO [address] [facility] INTER[facility] MEDICINE [place], [place] Resident - PCP Internal Medicine 08/10/22 05/29/23 Katina Casiano DO [address] [facility] [address] [facility] INTER[facility] MEDIC[facility] [place], [place] Hospitalist 06/05/23 Tracey Ang PA [address] [facility] [address] [facility] [place] [address] Physician Butcher All Round 08/15/23 documented as of this encounter
--- OUTSIDE RECORDS SUMMARY | 2025-10-29 11:50 | XMS_ITS | Encounter Summary ---
Author Organization [facility] Address [address] [facility] [place] [address] Care Team Providers Care Credit Collections Analyst Name Role Phone Ian Pollock MD Primary Care Provider [phone] Ian Pollock MD Primary Care Provider [phone] Ian Pollock MD Primary Care Provider [phone] Ian Pollock MD Primary Care Provider [phone] Katina Casiano DO Unavailable [phone] Xavi ACOSTA MD, Jameel R Primary Care Provider + Katina Casiano DO Unavailable [phone] Tracey Ang PA Unavailable Unavailable Belkis Angel CALL CENTER REPRESENTATIVE-SURGICAL TECH Primary Care Provider + Natalie Baum Primary Care Provider [phone] Reason for Visit * Reason Onset Date Comments MEDICATION REFILL 05/05/2020 Encounter Details Date Type Department Care Team (Late st Contact Info) Description 05/05/2020 Refill [facility] Pulmonary, Critical Care and Sleep Medicine [address] [place] [address] Agnieszka Haas MD [address] [place] [address] MEDICATION REFILL Social History Tobacco Use Types [...] on file 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 Gender Identity Not on file Sexual [...] on filedocumented in this encounter Care Teams Credit Collections Analyst Relationship Specialty Start Date End Date Ian Pollock MD PCP - General 12/13/19 05/25/20 Ian Pollock MD PCP - General 05/26/20 06/15/20 Ian Pollock MD [address] [facility] [place] [address] PCP - General 07/31/20 08/20/20 Ian Pollock MD [address] [facility] [place] [address] PCP - General 08/21/20 05/29/23 Jameel Hurley III, MD [address] [facility] [place] [phone] PCP - General Internal Medicine 06/05/23 08/28/23 Belkis Angel, CALL CENTER REPRESENTATIVE-SURGICAL TECH [address] [place] [phone] PCP - General Nurse Practitioner 08/29/23 05/05/24 Natalie Baum [address] [place] [address] PCP - General 05/06/24 Katina Casiano DO [address] [facility] INTERNAL MEDICINE [place], [place] Resident - PCP Internal Medicine 08/10/22 05/29/23 Katina Casiano DO [address] [facility] INTERNAL MEDICINE [place], [place] Hospitalist 06/05/23 Tracey Ang PA [address] [facility] [place] [address] Physician Accessibility Lift Technician 08/15/23 documented as of this encounter
--- OUTSIDE RECORDS SUMMARY | 2025-10-29 11:50 | XMS_ITS | Clinical Summary ---
Author Organization [facility] Address [address] [place] [address] Care Team Providers Care Casting Carrier Name Role Phone Matthew Mccabe MD Primary Care Prov ider Stan Meza MD Unavailable Natalie Baum NP Unavailable [phone] Allergies Active Allergy Reactions Criticality Noted [...] unit tablet Take 1 tablet by mouth utilization engineer before breakfast 30 tablet 3 024 Active [...] Encounters Date Type Department Care Team Description 10/28/[address] [facility] Oncology [address] [place] [phone] Sarah Brunner LCSW 10/28/[address] [facility] Oncology [address] [place] [phone] Janice Kilgore CMA 10/28/[address] [facility] Oncology [address] [place] [phone] Sasha Hernandes, RN Metastasis to bone (Primary Dx); Primary cancer of left lower lobe of lung (HCC); Prophylaxis for chemotherapy-induce d neutropenia 10/27/[address] [facility] Oncology [address] [place] [phone] Sasha Hernandes RN 10/15/[address] [facility] Oncology [address] [place] [phone] Sasha Hernandes RN 10/09/2025 10:30 AM RECREATION SUPERINTENDENT Infusion [facility] - Infusion [address] [place] [address] 5 [place] [address] Primary cancer of left lower lobe of lung (HCC) (Primary Dx) 10/09/2025 9:40 AM RECREATION SUPERINTENDENT Office Visit [facility] Oncology [address] [place] [phone] Stan Meza MD Primary cancer of left lower lobe of lung (HCC) (Primary Dx); Metastasis to bone; Prophylaxis for chemotherapy-induce d neutropenia 10/09/2025 9:00 AM RECREATION SUPERINTENDENT - 10/09/2025 11:59 PM RECREATION SUPERINTENDENT Hospital Encounter [facility] [address] [place] [address] Stan Meza MD Metastasis to bone; Primary cancer of left lower lobe of lung (HCC) Discharge Disposition: Discharge to home or self care 10/09/2025 8:45 AM RECREATION SUPERINTENDENT Clinical Support [facility] - Lab Collection [address] [place] [address] 5 [place] [address] Metastasis to bone; Primary cancer of left lower lobe of lung (HCC) 10/09/2025 Documentation [facility] Nutrition Counseling [address] [place] [address] Dagmar Pickard, LARRY 10/06/[address] [facility] Oncology [address] [place] [phone] Sarah Brunner, ENVIRONMENTAL DIRECTOR 10/06/[address] [facility] Oncology [address] [place] [phone] Sasha Hernandes RN 10/02/[address] [facility] Oncology [address] [place] [phone] Sarah Brunner, ENVIRONMENTAL DIRECTOR 09/30/[address] [facility] Oncology [address] [place] [phone] Sarah Brunner, ENVIRONMENTAL DIRECTOR 09/30/[address] [facility] Oncology [address] [place] [phone] Maddy Freire RN 09/23/[address] [facility] Oncology [address] [place] [phone] Janice Kilgore CMA 09/22/[address] [facility] Oncology [address] [place] [phone] Sasha Hernandes RN 09/18/2025 11:00 AM RECREATION SUPERINTENDENT Infusion [facility] - Infusion [address] [place] [address] 5 [place] [address] Prophylaxis for chemotherapy-induce d neutropenia (Primary Dx); Metastasis to bone; Primary cancer of left lower lobe of lung (HCC) 09/18/2025 9:00 AM RECREATION SUPERINTENDENT Office Visit [facility] Medicine Oncology [address] [place] [phone] Shari Quintana, LE Metastasis to bone (Primary Dx); Primary cancer of left lower lobe of lung (HCC); Prophylaxis for chemotherapy-induce d neutropenia; Nicotine dependence with current use 09/18/2025 8:00 AM RECREATION SUPERINTENDENT Clinical Support [facility] - Lab Collection [address] [place] [address] Floor 5 [place] [address] Metastasis to bone; Primary cancer of left lower lobe of lung (HCC); Prophylaxis for chemotherapy-induce d neutropenia 09/18/2025 Documentation [facility] Nutrition Counseling [address] [place] [phone] Dagmar Pickard, LARRY 09/15/2025 8:44 AM RECREATION SUPERINTENDENT - 09/15/2025 11:59 PM RECREATION SUPERINTENDENT Hospital Encounter [facility] [address] [place] [phone] Primary cancer of left lower lobe of lung (HCC) Discharge Disposition: Discharge to home or self care 09/11/[address] [facility] Medicine Oncology [address] [place] [phone] Sarah Brunner, LAURIE 09/10/2025 Telephone [facility] Radiology [address] [place] [phone] Tg Millan RN 09/09/[address] [facility] Medicine Oncology [address] [place] [phone] Sarah Brunner, LAURIE 08/28/2025 11:30 AM CDT Infusion [facility] - Infusion [address] [place] [address] Floor 5 [place] [address] Prophylaxis for chemotherapy-induce d neutropenia (Primary Dx); Metastasis to bone; Primary cancer of left lower lobe of lung (HCC) 08/28/2025 9:40 AM CDT Office Visit [facility] Medicine Oncology [address] [place] [phone] Stan Meza MD Primary cancer of left lower lobe of lung (HCC) (Primary Dx); Metastasis to bone; Prophylaxis for chemotherapy-induce d neutropenia 08/28/2025 8:45 AM CDT Clinical Support [facility] - Lab Collection [address] [facility] Floor 5 [place] [address] Metastasis to bone; Primary cancer of left lower lobe of lung (HCC); Prophylaxis for chemotherapy-induce d neutropenia 08/28/2025 8:[address] [facility] Medicine Oncology Lab [address] [facility] [address] [place] [address] Metastasis to bone; Primary cancer of left lower lobe of lung (HCC); Prophylaxis for chemotherapy-induce d neutropenia 08/28/2025 Documentation [facility] Nutrition Counseling [address] [place] [phone] 08/25/[address] [facility] Oncology [address] [place] [address] [address] [place] [phone] Carolyn Mckenna LCSW 08/22/[address] [facility] Oncology [address] [place] [address] 5 [place] [address] aSsha Hernandes RN 08/21/2025 9:00 AM CDT Lab [facility] - Lab Collection [address] [place] [address] Floor 5 [place] [address] Metastasis to bone; Primary cancer of left lower lobe of lung (HCC); Prophylaxis for chemotherapy-induce d neutropenia 08/21/2025 7:24 AM CDT - 08/21/2025 11:59 PM CDT Hospital Encounter [facility] Radiology [facility] [address] [place] [phone] Satn Meza MD Primary cancer of left lower lobe of lung (HCC) Discharge Disposition: Discharge to home or self care 08/18/[address] [facility] Oncology [address] [place] [address] [address] [place] [phone] Carolyn Mckenna ENVIRONMENTAL DIRECTOR 08/01/2025 9:00 AM CDT Infusion [facility] - Infusion [address] [facility] Floor 5 [place] [address] Metastasis to bone (Primary Dx); Primary cancer of left lower lobe of lung (HCC); Prophylaxis for chemotherapy-induce d neutropenia 08/01/[address] [facility] Medicine Oncology [facility] [address] [place] [phone] Sasha Hernandes RN 08/01/[address] [facility] Oncology [address] [place] [phone] Sasha Hernandes RN 08/01/[address] [facility] Oncology [facility] Floor 1, [address] [place] [phone] Megan Parish LCSW 07/31/2025 12:30 PM CDT Infusion [facility] - Infusion [address] [facility] Floor 5 [place] [address] Primary cancer of left lower lobe of lung (HCC) (Primary Dx); Metastasis to bone; Prophylaxis for chemotherapy-induce d neutropenia 07/31/2025 11:20 AM CDT Office Visit [facility] Oncology [facility] [address] [place] [address] Shari Quintana, LE Primary cancer of left lower lobe of lung (HCC) (Primary Dx); Metastasis to bone; Prophylaxis for chemotherapy-induce d neutropenia 07/31/2025 10:30 AM CDT Lab [facility] - Lab Collection [address] [place] [address] 5 [place] [address] Metastasis to bone; Primary cancer of left lower lobe of lung (HCC); Prophylaxis for chemotherapy-induce d neutropenia 07/31/2025 Documentation [facility] Nutrition Counseling [address] [place] [address] from Last 3 Months [...] vative Free, Intramuscular 08/23/2024 Influenza, Unspecified 08/13/2020,11/02/2015 ipDatatel (J&J) SARS-CoV-2 Vaccination 01/17/2021 Pneumococcal Conjugate Pcv20 [...] on file Legal Sex Male 6:04 PM RECREATION SUPERINTENDENT Gender Identity Not on file Sexual Orientation Not on file Last Filed Vital Signs Vital Sign Reading Time Taken Comments Blood Pressure 116/81 10/09/2025 10:00 AM RECREATION SUPERINTENDENT Pulse 103 10/09/2025 10:00 AM RECREATION SUPERINTENDENT Temperature 36.4 C (97.5 F) 10/09/2025 10:00 AM RECREATION SUPERINTENDENT Respiratory Rate 18 10/09/2025 10:00 AM RECREATION SUPERINTENDENT Oxygen Saturation 100% 10/09/2025 10:00 AM RECREATION SUPERINTENDENT Inhaled Oxygen Concentration - - Weight 89.8 kg (198 lb) 10/09/2025 10:00 AM RECREATION SUPERINTENDENT Height 175.3 cm (5' 9) 09/15/2025 9:20 AM RECREATION SUPERINTENDENT Body Mass Index 29.24 09/15/2025 9:20 AM RECREATION SUPERINTENDENT Plan of Treatment Health Maintenance Due Date Last Done Comments Colon Cancer Screening-Colonoscopy 1961 Depression Screening 1961 Prostate Cancer Screening-PSA 1961 Hepatitis B Screening 1979 Regular Well Visit/Exam 18-64 1979 Zoster Vaccine (1 of 2) 1980 Covid-19 Vaccine ( - 2024-2 6 season) 2025 09/29/2023, 09/14/2021, 01/17/2021, Additional history exists DTaP/Tdap/Td Vaccine (3 - Td or Tdap) 09/29/2033 09/29/2023, 07/17/2017 Pneumococcal vaccine <65 Completed 07/29/2022, 06/30 Hepatitis C Screening Completed 05/29/2025 Influenza Vaccine Completed 08/25/2025, , 08/23/2024, Additional history exists Medical Devices Implanted Type Area Candle Maker Device Identifier Shelf Expiration Date Model / Serial / Lot Rigth Knee Replacement Right: Knee [employer] Xcela Power Port 8fr [id number] - [id number] Implanted:Qty: 1 on 09/15/2025 by Manjit Jeong MD at [facility] [employer] 01/26/2030 [id number] / / [id number] Procedures Procedure Name Priority Date/Time Associated Diagnosis Comments URINALYSIS AND REFLEX TO MICROSCOPIC AND CULTURE Routine 10/09/2025 11:12 AM RECREATION SUPERINTENDENT Primary cancer of left lower lobe of lung (HCC) [id number] Routine 10/09/2025 11:10 AM RECREATION SUPERINTENDENT Primary cancer of left lower lobe of lung (HCC) CT CHEST ABDOMEN PELVIS W CONTRAST Schedule Routine, Read Routine (OP Routine) 10/09/2025 9:47 AM RECREATION SUPERINTENDENT Metastasis to bone Primary cancer of left lower lobe of lung (HCC) EGFR STAT 10/09/2025 8:57 AM RECREATION SUPERINTENDENT Metastasis to bone Primary cancer of left lower lobe of lung (HCC) DIFFERENTIAL AUTO Routine 10/09/2025 8:5 7 AM RECREATION SUPERINTENDENT Metastasis to bone Primary cancer of left lower lobe of lung (HCC) CBC WITH AUTO DIFFERENTIAL Routine 10/09/2025 8:57 AM RECREATION SUPERINTENDENT Metastasis to bone Primary cancer of left lower lobe of lung (HCC) COMPREHENSIVE METABOLIC PANEL STAT 10/09/2025 8:57 AM RECREATION SUPERINTENDENT Metastasis to bone Primary cancer of left lower lobe of lung (HCC) EGFR STAT 09/18/2025 8:30 AM RECREATION SUPERINTENDENT Metastasis to bone Primary cancer of left lower lobe of lung (HCC) Prophylaxis for chemotherapy-induc ed neutropenia DIFFERENTIAL AUTO Routine 09/18/2025 8:3 0 AM RECREATION SUPERINTENDENT Metastasis to bone Primary cancer of left lower lobe of lung (HCC) Prophylaxis for chemotherapy-induc ed neutropenia CBC WITH AUTO DIFFERENTIAL Routine 09/18/2025 8:30 AM RECREATION SUPERINTENDENT Metastasis to bone Primary cancer of left lower lobe of lung (HCC) Prophylaxis for chemotherapy-induc ed neutropenia COMPREHENSIVE METABOLIC PANEL STAT 09/18/2025 8:30 AM RECREATION SUPERINTENDENT Metastasis to bone Primary cancer of left lower lobe of lung (HCC) Prophylaxis for chemotherapy-induc ed neutropenia PORT PLACEMENT CHEST >5 YEARS Schedule Routine, Read Routine (OP Routine) 09/15/2025 10:30 AM RECREATION SUPERINTENDENT Primary cancer of left lower lobe of [...] culture Urine, clean voided (10/09/2025 11:12 AM RECREATION SUPERINTENDENT) Color, ur Straw Yellow Clarity, ur Clear Clear [facility] Specific gravity, ur >1.042(A) 1.003 - 1.030 [facility] pH, urine 7.0 [facility] Comment: Interpretive Data U rine pH is affected by diet, medications, systemic acid-base disturbances, and renal tubular function. pH may affect urinary stone formation. For example, urine pH below 6.0 may help reduce the tendency for calcium phosphate stones and pH greater than 6.0 may reduce the tendency for uric acid stone formation. Source: [facility] Current Interpretive Data was last revised on 2017 Protein, ur ql Trace Negative [facility] Glucose, ur ql Negative Negative [facility] Ketones, ur Negative Negative [facility] Bilirubin, ur Negative Negative [facility] Blood, ur Negative Negative [facility] Urobilinogen, ur <2.0 <2.0 [facility] Nitrite, ur Negative Negative [facility] Leukocyte esterase, ur Negative [facility] UA reflex comment Reflex conditions for microscopic UA and culture not met. [facility] Urine, clean voided 10/09/2025 11:12 AM RECREATION SUPERINTENDENT 10/09/2025 12:58 PM RECREATION SUPERINTENDENT us Stan Meza MD LAB MICROBIOLOGY - GENERA L ORDERABLES Final Result [facility] [place] [address] * [id number] (10/09/2025 11:10 AM RECREATION SUPERINTENDENT) MSI-HIGH Not detected 10/17/2025 12:00 AM RECREATION SUPERINTENDENT [facility] TMB 9.49 mut/Mb 10/17/2025 12:00 AM RECREATION SUPERINTENDENT [facility] TUMOR FRACTION 6.7% 10/17/2025 12:00 AM RECREATION SUPERINTENDENT [facility] Blood specimen (specimen) Venous blood specimen / Unknown 10/09/2025 11:10 AM RECREATION SUPERINTENDENT 10/10/2025 4:01 PM RECREATION SUPERINTENDENT Narrative This result has genomic variants that were not included in this document. us Stan Meza MD LAB GENETIC TESTING Final Result [facility] [address] [place] [address], [facility] [phone] [facility] [address] [place] [address] * CT Chest Abdomen Pelvis W Contrast (10/09/2025 9:47 AM RECREATION SUPERINTENDENT) Anatomical Region Laterality Modality Body N/A Computed Tomogra phy 10/09/2025 10:0 3 AM RECREATION SUPERINTENDENT Impressions 10/09/2025 10:03 AM RECREATION SUPERINTENDENT Worsening metastatic disease with increase mediastinal and hilar lymphadenopathy. Increased size right lower lobe nodule. Slight increase in left adrenal metastasis. Electronically signed by: Angel Almanza M.D. Narrative 10/09/2025 10:03 AM RECREATION SUPERINTENDENT EXAMINATION: Computed tomography of the chest abdomen [...] metastasis. Electronically signed by: Angel Almanza M.D. Stan Meza MD IMG CT PROCEDURES Final R esult * eGFR (10/09/2025 8:57 AM RECREATION SUPERINTENDENT) eGFR >90 >=60 mL/min/1. 73 m2 Comment: [...] last reviewed 2021. Blood 10/09/2025 8:57 AM RECREATION SUPERINTENDENT 10/09/2025 9:01 AM RECREATION SUPERINTENDENT Stan Meza MD LAB BLOOD ORDERABLES Yolette banda Result [facility] [place] [address] * (ABNORMAL) Differential, auto (10/09/2025 8:57 AM RECREATION SUPERINTENDENT) Pathologist [facility] Neutrophil abs 2.98 1.50 - 6.50 K/cumm Comment:Testing performed by : [facility], [address] [place], [place] [id number] Lymphocyte abs 0.71(L) 0.80 - 3.30 K/cumm [facility] Comment:Testing performed by : [facility], [address] [place], [place] [id number] Monocyte abs 0.66 0.20 - 0.80 K/cumm [facility] Comment:Testing performed by : [facility], [address] [place], [place] [id number] Eosinophil abs 0.08 0.00 - 0.50 K/cumm [facility] Comment:Testing performed by : [facility], [address] [place], [place] [id number] Basophil abs 0.06 0.00 - 0.10 K/cumm [facility] Comment:Testing performed by : [facility], [address] [place], [place] [id number] Neutrophil pct 66.3 % [facility] Comment: Interpretive Data Percent cell count reference ranges are not reported, since discordance with absolute values may lead to misinterpretation of CBC data. Current Interpretive Data was last revised on 2018. Testing performed by: [facility], [address] [place] [address] Lymphocyte pct 15.9 % [facility] Comment: Interpretive Data Percent cell count reference ranges are not reported, since discordance with absolute values may lead to misinterpretation of CBC data. Current Interpretive Data was last revised on 2018. Testing performed by: [facility], [address] [place] [address] Monocyte pct 14.8 % [facility] Comment: Interpretive Data Percent cell count reference ranges are not reported, since discordance with absolute values may lead to misinterpretation of CBC data. Current Interpretive Data was last revised on 2018. Testing performed by: [facility], [address] [place] [address] Eosinophil pct 1.7 % [facility] Comment: Interpretive Data Percent cell count reference ranges are not reported, since discordance with absolute values may lead to misinterpretation of CBC data. Current Interpretive Data was last revised on 2018. Testing performed by: [facility], [address] [place] [phone] Basophil pct 1.4 % [facility] Comment: Interpretive Data Percent cell count reference ranges are not reported, since discordance with absolute values may lead to misinterpretation of CBC data. Current Interpretive Data was last revised on 2018. Testing performed by: [facility], [address] [place] [phone] Blood 10/09/2025 8:57 AM RECREATION SUPERINTENDENT 10/09/2025 8:57 AM RECREATION SUPERINTENDENT us Stan Meza MD LAB BLOOD ORDERABLES Yolette l Result Performing Organization Address City/State/[facility] Co de Phone Number [facility] [place] [address] * (ABNORMAL) CBC with auto differential (10/09/2025 8:57 AM RECREATION SUPERINTENDENT) WBC 4.49 3.80 - 9.90 K/cumm Comment:Testing performed by : [facility], [address] [place] [phone] Hgb 9.5(L) 13.0 - 17.5 g/dL [facility] Comment:Testing performed by : [facility], [address] [place] [phone] Hct 29.9(L) 38.9 - 50.3 % [facility] Comment:Testing performed by : [facility], [address] [place] [address] Plt 246 150 - 400 K/cumm [facility] Comment:Testing performed by : [facility], [address] [place] [place] [phone] MPV 6.6(L) 6.8 - 10.4 fL [facility] Comment:Testing performed by : [facility], [address] [place], [place] [phone] RBC 3.44(L) 4.30 - 5.80 M/cumm [facility] Comment:Testing performed by : [facility], [address] [place], [place] [phone] MCV 87.0 81.3 - 96.4 fL [facility] Comment:Testing performed by : [facility], [address] [place], [place] [phone] MCH 27.7 27.1 - 33.3 pg [facility] Comment:Testing performed by : [facility], [address] [place], [place] [phone] MCHC 31.9(L) 32.3 - 35.7 g/dL [facility] Comment:Testing performed by : [facility], [address] [place] [address] RDW CV 17.4(H) 11.1 - 14.9 % [facility] Comment:Testing performed by : [facility], [address] [place] [place] [address] NRBC abs 0.00 0.00 - 0.01 K/cumm [facility] Comment:Testing performed by : [facility], [address] [place], [place] [phone] Blood 10/09/2025 8:57 AM RECREATION SUPERINTENDENT 10/09/2025 8:57 AM RECREATION SUPERINTENDENT us Stan Meza MD LAB BLOOD ORDERABLES Yolette banda Result [facility] Department of Laboratories [place], [place] [id number] * (ABNORMAL) Comprehensive metabolic panel (10/09/2025 8:57 AM RECREATION SUPERINTENDENT) Sodium 133(L) 135 - 145 mmol/L Potassium, pl 4.0 3.3 - 4.9 mmol/L [facility] Chloride 100 97 - 110 mmol/L [facility] CO2 28 22 - 32 mmol/L [facility] Anion gap 5 2 - 15 mmol/L [facility] BUN 5(L) 6 - 25 mg/dL [facility] Creatinine 0.64(L) 0.80 - 1.30 mg/dL [facility] Glucose 98 70 - 199 mg/dL [facility] Comment: Interpretive Data Fasting [...] 2022. Calcium 8.8 8.5 - 10.3 mg/dL [facility] Bilirubin, total 0.4 0.1 - 1.2 mg/dL [facility] Protein, pl 6.4(L) 6.5 - 8.5 g/dL [facility] Albumin 3.6 3.5 - 5.0 g/dL [facility] Alk phos 108 40 - 130 Units/L [facility] ALT 10 7 - 55 Units/L [facility] AST 16 10 - 50 Units/L [facility] Blood 10/09/2025 8:57 AM RECREATION SUPERINTENDENT 10/09/2025 9:01 AM RECREATION SUPERINTENDENT us Stan Meza MD LAB BLOOD ORDERABLES Yolette banda Result [facility] Department [place] [address] * eGFR (09/18/2025 8:30 AM RECREATION SUPERINTENDENT) eGFR >90 >=60 mL/min/1. 73 m2 Comment: [...] last reviewed 2021. Blood 09/18/2025 8:30 AM RECREATION SUPERINTENDENT 09/18/2025 8:35 AM RECREATION SUPERINTENDENT us Stan Meza MD LAB BLOOD ORDERABLES Yolette banda Result Performing Organization Address City/State/[facility] Co de Phone Number [facility] [place] [address] * (ABNORMAL) Differential, auto (09/18/2025 8:30 AM RECREATION SUPERINTENDENT) Neutrophil abs 2.61 1.50 - 6.50 K/cumm Comment:Testing performed by : [facility] [facility], [address] [place] [address] Lymphocyte abs 0.87 0.80 - 3.30 K/cumm [facility] Comment:Testing performed by : [facility], [address] [place], [place] [phone] Monocyte abs 0.86(H) 0.20 - 0.80 K/cumm [facility] Comment:Testing performed by : [facility], [address] [place], [place] [phone] Eosinophil abs 0.17 0.00 - 0.50 K/cumm [facility] Comment:Testing performed by : [facility], [address] [place], [place] [phone] Basophil abs 0.07 0.00 - 0.10 K/cumm [facility] Comment:Testing performed by : [facility], [address] [place] [phone] Neutrophil pct 57.0 % [facility] Comment: Interpretive Data Percent cell count reference ranges are not reported, since discordance with absolute values may lead to misinterpretation of CBC data. Current Interpretive Data was last revised on 2018. Testing performed by: [facility], [address] [place] [phone] Lymphocyte pct 19.1 % [facility] Comment: Interpretive Data Percent cell count reference ranges are not reported, since discordance with absolute values may lead to misinterpretation of CBC data. Current Interpretive Data was last revised on 2018. Testing performed by: [facility], [address] [place] [phone] Monocyte pct 18.8 % [facility] Comment: Interpretive Data Percent cell count reference ranges are not reported, since discordance with absolute values may lead to misinterpretation of CBC data. Current Interpretive Data was last revised on 2018. Testing performed by: [facility], [address] [place] [phone] Eosinophil pct 3.6 % [facility] Comment: Interpretive Data Percent cell count reference ranges are not reported, since discordance with absolute values may lead to misinterpretation of CBC data. Current Interpretive Data was last revised on 2018. Testing performed by: [facility], [address] [place] [phone] Basophil pct 1.5 % [facility] Comment: Interpretive Data Percent cell count reference ranges are not reported, since discordance with absolute values may lead to misinterpretation of CBC data. Current Interpretive Data was last revised on 2018. Testing performed by: [facility], [address] [place] [phone] Blood 09/18/2025 8:30 AM RECREATION SUPERINTENDENT 09/18/2025 8:34 AM RECREATION SUPERINTENDENT us Stan Meza MD LAB BLOOD ORDERABLES Yolette veronika Result [facility] [place] [address] * (ABNORMAL) CBC with auto differential (09/18/2025 8:30 AM RECREATION SUPERINTENDENT) WBC 4.57 3.80 - 9.90 K/cumm Comment:Testing performed by : [facility], [address] [place] [address] Hgb 10.0(L) 13.0 - 17.5 g/dL [facility] Comment:Testing performed by : [facility], [address] [place] [address] Hct 30.8(L) 38.9 - 50.3 % [facility] Comment:Testing performed by : [facility], [address] [place] [address] Plt 242 150 - 400 K/cumm [facility] Comment:Testing performed by : [facility], [address] [place] [address] MPV 6.8 6.8 - 10.4 fL [facility] Comment:Testing performed by : [facility], [address] [place] [address] RBC 3.66(L) 4.30 - 5.80 M/cumm [facility] Comment:Testing performed by : [facility], [address] [place] [address] MCV 84.0 81.3 - 96.4 fL [facility] Comment:Testing performed by : [facility], [address] [place] [address] MCH 27.3 27.1 - 33.3 pg [facility] Comment:Testing performed by : [facility], [address] [place] [address] MCHC 32.5 32.3 - 35.7 g/dL [facility] Comment:Testing performed by : [facility], [address] [place] [address] RDW CV 17.7(H) 11.1 - 14.9 % [facility] Comment:Testing performed by : [facility], [address] [place] [address] NRBC abs 0.00 0.00 - 0.01 K/cumm [facility] Comment:Testing performed by : [facility], [address] [place] [address] Blood 09/18/2025 8:30 AM RECREATION SUPERINTENDENT 09/18/2025 8:34 AM RECREATION SUPERINTENDENT us Stan Meza MD LAB BLOOD ORDERABLES Yolette banda Result [facility] [place] [address] * (ABNORMAL) Comprehensive metabolic panel (09/18/2025 8:30 AM RECREATION SUPERINTENDENT) Sodium 135 135 - 145 mmol/L Potassium, pl 4.3 3.3 - 4.9 mmol/L [facility] Chloride 101 97 - 110 mmol/L [facility] CO2 27 22 - 32 mmol/L [facility] Anion gap 7 2 - 15 mmol/L [facility] BUN 6 6 - 25 mg/dL [facility] Creatinine 0.61(L) 0.80 - 1.30 mg/dL [facility] Glucose 102 70 - 199 mg/dL [facility] Comment: Interpretive Data Fasting [...] 2022. Calcium 9.0 8.5 - 10.3 mg/dL [facility] Bilirubin, total 0.4 0.1 - 1.2 mg/dL [facility] Protein, pl 6.6 6.5 - 8.5 g/dL [facility] Albumin 3.8 3.5 - 5.0 g/dL [facility] Alk phos 106 40 - 130 Units/L [facility] ALT 10 7 - 55 Units/L [facility] AST 16 10 - 50 Units/L [facility] Blood 09/18/2025 8:30 AM RECREATION SUPERINTENDENT 09/18/2025 8:35 AM RECREATION SUPERINTENDENT us Stan Meza MD LAB BLOOD ORDERABLES Yolette l Result [facility] [place] [address] * IR Port Placement Chest > 5 Years (09/15/2025 10:30 AM RECREATION SUPERINTENDENT) Anatomical Region Laterality Modality Chest N/A Radio Fluoroscop y 09/15/2025 10:3 4 AM RECREATION SUPERINTENDENT Impressions 09/15/2025 10:34 AM RECREATION SUPERINTENDENT Successful chest wall port placement. PLAN: The catheter is ready for immediate use. Please note that a power injectable port was placed. When treatment is completed, removal can be scheduled by calling [facility] - [phone] [facility] - [phone] Electronically signed by: Lanie Philippe PA-C Narrative 09/15/2025 10:34 AM RECREATION SUPERINTENDENT EXAMINATION: PORT PLACEMENT USING ULTRASOUND GUIDANCE (STD [...] was obtained. Prior to beginning the procedure, [facility] Protocol was used to confirm the patient's [...] was obtained. Prior to beginning the procedure, [facility] Protocol was used to confirm the patient's [...] completed, removal can be scheduled by calling [facility] - [phone] [facility] - [phone] Electronically signed by: Lanie Philippe PA-C Stan Meza MD IMG IR PROCEDURES Final R esult * (ABNORMAL) Protime-INR (08/28/2025 11:15 AM CDT) PT 15.2(H) 10.2 - 13.5 sec INR 1.35(H) 0.90 - 1.20 [facility] Comment: Interpretive data Oral anticoagulant therapeutic ranges: Venous thromboembolism prophylaxis or treatment: 2.0-3.0 CARDIOLOGY Standard range: 2.0-3.0 High-intensity range: 2.5-3.5 Refer to indication-specific guidelines for appropriate target ranges for prosthetic heart valve replacement. Current interpretive data was last revised on 2019. Blood 08/28/2025 11:1 5 AM CDT 08/28/2025 11:39 AM CDT Stan Meza MD LAB BLOOD ORDERABLES Yolette l Result [facility] [place] [address] * eGFR (08/28/2025 9:15 AM CDT) eGFR [...] MD LAB BLOOD ORDERABLES Yolette banda Result [facility] Department of Laboratories [place] [id number] * (ABNORMAL) Differential, auto (08/28/2025 9:15 AM CDT) Neutrophil abs 1.79 1.50 - 6.50 K/cumm Comment:Testing performed by : [facility], [address] [place] [phone] Lymphocyte abs 1.10 0.80 - 3.30 K/cumm [facility] Comment:Testing performed by : [facility], [address] [place], [place] [phone] Monocyte abs 0.75 0.20 - 0.80 K/cumm [facility] Comment:Testing performed by : [facility], [address] [place] [phone] Eosinophil abs 0.82(H) 0.00 - 0.50 K/cumm [facility] Comment:Testing performed by : [facility], [address] [place] [phone] Basophil abs 0.06 0.00 - 0.10 K/cumm [facility] Comment:Testing performed by : [facility], [address] [place] [phone] Neutrophil pct 39.6 % [facility] Comment: Interpretive Data Percent cell count reference ranges are not reported, since discordance with absolute values may lead to misinterpretation of CBC data. Current Interpretive Data was last revised on 2018. Testing performed by: [facility], [address] [place] [phone] Lymphocyte pct 24.4 % [facility] Comment: Interpretive Data Percent cell count reference ranges are not reported, since discordance with absolute values may lead to misinterpretation of CBC data. Current Interpretive Data was last revised on 2018. Testing performed by: [facility], [address] [place] [phone] Monocyte pct 16.6 % [facility] Comment: Interpretive Data Percent cell count reference ranges are not reported, since discordance with absolute values may lead to misinterpretation of CBC data. Current Interpretive Data was last revised on 2018. Testing performed by: [facility], [address] [place] [phone] Eosinophil pct 18.0 % [facility] Comment: Interpretive Data Percent cell count reference ranges are not reported, since discordance with absolute values may lead to misinterpretation of CBC data. Current Interpretive Data was last revised on 2018. Testing performed by: [facility], [address] [place] [phone] Basophil pct 1.3 % [facility] Comment: Interpretive Data Percent cell count reference ranges are not reported, since discordance with absolute values may lead to misinterpretation of CBC data. Current Interpretive Data was last revised on 2018. Testing performed by: [facility], [address] [place] [phone] Blood 08/28/2025 9:15 AM CDT 08/28/2025 9:25 AM CDT us Stan Meza MD LAB BLOOD ORDERABLES Yolette l Result [facility] [place] [address] * (ABNORMAL) CBC with auto differential (08/28/2025 9:15 AM CDT) WBC 4.52 3.80 - 9.90 K/cumm Comment:Testing performed by : [facility], [address] [place] [phone] Hgb 10.5(L) 13.0 - 17.5 g/dL [facility] Comment:Testing performed by : [facility], [address] [place], [place] [phone] Hct 32.5(L) 38.9 - 50.3 % [facility] Comment:Testing performed by : [facility], [address] [place], [place] [phone] Plt 219 150 - 400 K/cumm [facility] Comment:Testing performed by : [facility], [address] [place], [place] [phone] MPV 7.4 6.8 - 10.4 fL [facility] Comment:Testing performed by : [facility], [address] [place], [place] [phone] RBC 3.88(L) 4.30 - 5.80 M/cumm [facility] Comment:Testing performed by : [facility], [address] [place], [place] [phone] MCV 83.8 81.3 - 96.4 fL [facility] Comment:Testing performed by : [facility], [address] [place], [place] [phone] MCH 27.0(L) 27.1 - 33.3 pg [facility] Comment:Testing performed by : [facility], [address] [place], [place] [phone] MCHC 32.2(L) 32.3 - 35.7 g/dL [facility] Comment:Testing performed by : [facility], [address] [place], [place] [phone] RDW CV 18.9(H) 11.1 - 14.9 % [facility] Comment:Testing performed by : [facility], [address] [place], [place] [phone] NRBC abs 0.00 0.00 - 0.01 K/cumm [facility] Comment:Testing performed by : [facility], [address] [place], [place] [phone] Blood 08/28/2025 9:15 AM CDT 08/28/2025 9:25 AM CDT Stan Meza MD LAB BLOOD ORDERABLES Yolette banda Result [facility] [place] [address] * (ABNORMAL) Comprehensive metabolic panel (08/28/2025 9:15 AM CDT) Sodium 136 135 - 145 mmol/L Potassium, pl 4.2 3.3 - 4.9 mmol/L [facility] Chloride 103 97 - 110 mmol/L [facility] CO2 24 22 - 32 mmol/L [facility] Anion gap 9 2 - 15 mmol/L [facility] BUN 5(L) 6 - 25 mg/dL [facility] Creatinine 0.65(L) 0.80 - 1.30 mg/dL [facility] Glucose 94 70 - 199 mg/dL [facility] Comment: Interpretive Data Fasting [...] 2022. Calcium 9.4 8.5 - 10.3 mg/dL [facility] Bilirubin, total 0.3 0.1 - 1.2 mg/dL [facility] Protein, pl 6.9 6.5 - 8.5 g/dL [facility] Albumin 3.8 3.5 - 5.0 g/dL [facility] Alk phos 121 40 - 130 Units/L [facility] ALT 10 7 - 55 Units/L [facility] AST 16 10 - 50 Units/L [facility] Blood 08/28/2025 9:15 AM CDT 08/28/2025 9:21 AM CDT Stan Meza MD LAB BLOOD ORDERABLES Yolette l Result [facility] [place] [address] * eGFR (08/21/2025 9:19 AM CDT) Pathologist [facility] eGFR >90 >=60 mL/min/1. 73 [...] ORDERABLES Yolette l Result Performing Organization Address City/[facility]/ZIP Co de Phone Number [facility] [place] [address] * Differential, auto (08/21/2025 9:19 AM CDT) Pathologist [facility] Neutrophil abs 3.36 1.50 - 6.50 K/cumm Comment:Testing performed by : [facility], [address] [place] [phone] Lymphocyte abs 0.99 0.80 - 3.30 K/cumm [facility] Comment:Testing performed by : [facility], [address] [place] [phone] Monocyte abs 0.68 0.20 - 0.80 K/cumm [facility] Comment:Testing performed by : [facility], [address] [place] [phone] Eosinophil abs 0.02 0.00 - 0.50 K/cumm [facility] Comment:Testing performed by : [facility], [address] [place] [phone] Basophil abs 0.08 0.00 - 0.10 K/cumm [facility] Comment:Testing performed by : [facility], [address] [place] [phone] Neutrophil pct 65.6 % [facility] Comment: Interpretive Data Percent cell count reference ranges are not reported, since discordance with absolute values may lead to misinterpretation of CBC data. Current Interpretive Data was last revised on 2018. Testing performed by: [facility], [address] [place] [phone] Lymphocyte pct 19.3 % [facility] Comment: Interpretive Data Percent cell count reference ranges are not reported, since discordance with absolute values may lead to misinterpretation of CBC data. Current Interpretive Data was last revised on 2018. Testing performed by: [facility], [address] [place] [phone] Monocyte pct 13.3 % [facility] Comment: Interpretive Data Percent cell count reference ranges are not reported, since discordance with absolute values may lead to misinterpretation of CBC data. Current Interpretive Data was last revised on 2018. Testing performed by: [facility], [address] [place] [phone] Eosinophil pct 0.4 % [facility] Comment: Interpretive Data Percent cell count reference ranges are not reported, since discordance with absolute values may lead to misinterpretation of CBC data. Current Interpretive Data was last revised on 2018. Testing performed by: [facility], [address] [place] [phone] Basophil pct 1.5 % [facility] Comment: Interpretive Data Percent cell count reference ranges are not reported, since discordance with absolute values may lead to misinterpretation of CBC data. Current Interpretive Data was last revised on 2018. Testing performed by: [facility], [address] [place] [address] Blood 08/21/2025 9:19 AM CDT 08/21/2025 9:23 AM CDT us Stan Meza MD LAB BLOOD ORDERABLES Yolette banda Result [facility] [place] [address] * (ABNORMAL) CBC with auto differential (08/21/2025 9:19 AM CDT) WBC 5.13 3.80 - 9.90 K/cumm Comment:Testing performed by : [facility], [address] [place] [address] Hgb 10.7(L) 13.0 - 17.5 g/dL [facility] Comment:Testing performed by : [facility], [address] [place] [address] Hct 33.5(L) 38.9 - 50.3 % [facility] Comment:Testing performed by : [facility], [address] [place] [address] Plt 237 150 - 400 K/cumm [facility] Comment:Testing performed by : [facility], [address] [place] [address] MPV 7.3 6.8 - 10.4 fL [facility] Comment:Testing performed by : [facility], [address] [place] [address] RBC 3.99(L) 4.30 - 5.80 M/cumm [facility] Comment:Testing performed by : [facility], [address] [place] [address] MCV 83.9 81.3 - 96.4 fL [facility] Comment:Testing performed by : [facility], [address] [place], [place] [phone] MCH 26.8(L) 27.1 - 33.3 pg [facility] Comment:Testing performed by : [facility], [address] [place], [place] [phone] MCHC 31.9(L) 32.3 - 35.7 g/dL [facility] Comment:Testing performed by : [facility], [address] [place] [address] RDW CV 19.7(H) 11.1 - 14.9 % [facility] Comment:Testing performed by : [facility], [address] [place] [address] NRBC abs 0.00 0.00 - 0.01 K/cumm [facility] Comment:Testing performed by : [facility], [address] [place] [address] Blood 08/21/2025 9:19 AM CDT 08/21/2025 9:23 AM CDT Stan Meza MD LAB BLOOD ORDERABLES Yolette l Result Performing Organization Address City/[facility] Co de Phone Number [facility] [place] [address] * Phosphorus (08/21/2025 9:19 AM CDT) Phosphorus, pl 2.7 2.3 - 4.5 mg/dL Blood 08/21/2025 9:19 AM CDT 08/21/2025 9:31 AM CDT Stan Meza MD LAB BLOOD ORDERABLES Yolette l Result Performing Organization Address City/[facility] Co de Phone Number [facility] [place] [address] * Magnesium (08/21/2025 9:19 AM CDT) Magnesium 1.8 1.4 - 2.5 mg/dL Blood 08/21/2025 9:19 AM CDT 08/21/2025 9:31 AM CDT us Stan Meza MD LAB BLOOD ORDERABLES Yolette l Result [facility] [place] [address] * (ABNORMAL) Comprehensive metabolic panel (08/21/2025 9:19 AM CDT) Pathologist [facility] Sodium 137 135 - 145 mmol/L Potassium, pl 4.0 3.3 - 4.9 mmol/L [facility] Chloride 104 97 - 110 mmol/L [facility] CO2 24 22 - 32 mmol/L [facility] Anion gap 9 2 - 15 mmol/L [facility] BUN 6 6 - 25 mg/dL [facility] Creatinine 0.62(L) 0.80 - 1.30 mg/dL [facility] Glucose 137 70 - 199 mg/dL [facility] Comment: Interpretive Data Fasting [...] 2022. Calcium 8.9 8.5 - 10.3 mg/dL [facility] Bilirubin, total 0.6 0.1 - 1.2 mg/dL [facility] Protein, pl 6.8 6.5 - 8.5 g/dL [facility] Albumin 3.9 3.5 - 5.0 g/dL [facility] Alk phos 114 40 - 130 Units/L [facility] ALT 13 7 - 55 Units/L [facility] AST 18 10 - 50 Units/L [facility] Blood 08/21/2025 9:19 AM CDT 08/21/2025 9:31 AM CDT us Stan Meza MD LAB BLOOD ORDERABLES Yolette l Result [facility] [place] [address] * CT Chest Abdomen Pelvis W Contrast [...] fracture. Electronically signed by: Rony Miranda M.D. us Stan Meza MD IM CT [...] MD LAB BLOOD ORDERABLES Yolette banda Result [facility] [place] [address] * (ABNORMAL) Differential, auto (07/31/2025 11:17 AM CDT) Neutrophil abs 2.74 1.50 - 6.50 K/cumm Comment:Testing performed by : [facility], [address] [place], [place] [phone] Lymphocyte abs 1.32 0.80 - 3.30 K/cumm [facility] Comment:Testing performed by : [facility], [address] [place] [phone] Monocyte abs 1.04(H) 0.20 - 0.80 K/cumm [facility] Comment:Testing performed by : [facility], [address] [place] [phone] Eosinophil abs 0.19 0.00 - 0.50 K/cumm [facility] Comment:Testing performed by : [facility], [address] [place] [phone] Basophil abs 0.11(H) 0.00 - 0.10 K/cumm [facility] Comment:Testing performed by : [facility], [address] [place] [phone] Neutrophil pct 50.8 % [facility] Comment: Interpretive Data Percent cell count reference ranges are not reported, since discordance with absolute values may lead to misinterpretation of CBC data. Current Interpretive Data was last revised on 2018. Testing performed by: [facility], [address] [place] [phone] Lymphocyte pct 24.4 % [facility] Comment: Interpretive Data Percent cell count reference ranges are not reported, since discordance with absolute values may lead to misinterpretation of CBC data. Current Interpretive Data was last revised on 2018. Testing performed by: [facility], [address] [place] [phone] Monocyte pct 19.3 % [facility] Comment: Interpretive Data Percent cell count reference ranges are not reported, since discordance with absolute values may lead to misinterpretation of CBC data. Current Interpretive Data was last revised on 2018. Testing performed by: [facility], [address] [place] [phone] Eosinophil pct 3.5 % [facility] Comment: Interpretive Data Percent cell count reference ranges are not reported, since discordance with absolute values may lead to misinterpretation of CBC data. Current Interpretive Data was last revised on 2018. Testing performed by: [facility], [address] [place] [phone] Basophil pct 2.0 % [facility] Comment: Interpretive Data Percent cell count reference ranges are not reported, since discordance with absolute values may lead to misinterpretation of CBC data. Current Interpretive Data was last revised on 2018. Testing performed by: [facility], [address] [place] [phone] Blood 07/31/2025 11:1 7 AM CDT 07/31/2025 11:22 AM CDT us Stan Meza MD LAB BLOOD ORDERABLES Yolette veronika Result [facility] [place] [address] * (ABNORMAL) CBC with auto differential (07/31/2025 11:17 AM CDT) WBC 5.40 3.80 - 9.90 K/cumm Comment:Testing performed by : [facility], [address] [place] [address] Hgb 10.4(L) 13.0 - 17.5 g/dL [facility]ERALDO RESENDIZ Comment:Testing performed by : [facility], [address] [place] [address] Hct 31.5(L) 38.9 - 50.3 % CERALDO RESENDIZ Comment:Testing performed by : [facility], [address] [place] [address] Plt 257 150 - 400 K/cumm CHEMA RESENDIZ Comment:Testing performed by : [facility], [address] [place] [address] MPV 6.9 6.8 - 10.4 fL [facility]J Comment:Testing performed by : [facility], [address] [place] [address] RBC 3.97(L) 4.30 - 5.80 M/cumm CERALDO RESENDIZ Comment:Testing performed by : [facility], [address] [place] [address] MCV 79.5(L) 81.3 - 96.4 fL [facility]J Comment:Testing performed by : [facility], [address] [place] [address] MCH 26.2(L) 27.1 - 33.3 pg [facility]J Comment:Testing performed by : [facility], [address] [place] [address] MCHC 33.0 32.3 - 35.7 g/dL [facility] Comment:Testing performed by : [facility], [address] [place] [phone] RDW CV 18.4(H) 11.1 - 14.9 % [facility] Comment:Testing performed by : [facility], [address] [place] [address] NRBC abs 0.00 0.00 - 0.01 K/cumm [facility] Comment:Testing performed by : [facility], [address] [place] [address] Blood 07/31/2025 11:1 7 AM CDT 07/31/2025 11:22 AM CDT us Stan Meza MD LAB BLOOD ORDERABLES Yolette banda Result [facility] [place] [address] * (ABNORMAL) Comprehensive metabolic panel (07/31/2025 11:17 AM CDT) Sodium 138 135 - 145 mmol/L Potassium, pl 4.3 3.3 - 4.9 mmol/L [facility] Chloride 104 97 - 110 mmol/L [facility] CO2 25 22 - 32 mmol/L [facility] Anion gap 9 2 - 15 mmol/L [facility] BUN 5(L) 6 - 25 mg/dL [facility] Creatinine 0.68(L) 0.80 - 1.30 mg/dL [facility] Glucose 85 70 - 199 mg/dL [facility] Comment: Interpretive Data Fasting [...] 2022. Calcium 9.2 8.5 - 10.3 mg/dL [facility] Bilirubin, total 0.6 0.1 - 1.2 mg/dL [facility] Protein, pl 6.6 6.5 - 8.5 g/dL [facility] Albumin 3.7 3.5 - 5.0 g/dL [facility] Alk phos 118 40 - 130 Units/L [facility] ALT 10 7 - 55 Units/L [facility] AST 16 10 - 50 Units/L [facility] Blood 07/31/2025 11:1 7 AM CDT 07/31/2025 11:28 AM CDT Stan Meza MD LAB BLOOD ORDERABLES Yolette l Result [facility] [place] [address] * Hepatitis C antibody Blood (05/29/2025 12:49 PM CDT) Hep C Ab Nonreactive Nonreactive Comment:Antibodies to HCV no t detected. Does NOT exclude the possibility of recent exposure to HCV. Current interpretive data was last revised on 22 Blood 05/29/2025 12:4 9 PM CDT 05/29/2025 1:20 PM CDT Stan Meza MD LAB MICROBIOLOGY - GENERA L ORDERABLES Final Result Performing Organization Address City/[facility]/ZIP Co de Phone Number [facility] [place] [place] [address] from Last 3 Months or Most Recently Relevant to Health Maintenance Insurance [facility] Advance Directives For more information, please contact: [phone] * Full Code (Latest Code Status on File) Date Activated Date Inactivated Comments 09/15/2025 9:04 AM 09/16/2025 5:26 AM Care Teams Casting Carrier Relationship Specialty Start Date End Date Matthew Mccabe MD PCP - General Family Medicine 05/13/24 Stan Meza MD Medical Oncologist/Diaphragm Builder Medical Oncology 06/28/24 Natalie Baum NP [address] [place] [address] [place] [address] Nurse Practitioner Family Practice 03/26/25
--- OUTSIDE RECORDS SUMMARY | 2025-10-29 11:50 | XMS_ITS | Clinical Summary ---
Author Organization [facility] Address [facility] [address] [place] [address] Care Team Providers Care Design Drafter Name Role Phone Natalie Baum LE Primary Care Provider [phone] Allergies Active Allergy Reactions Criticality Noted Date [...] drink = 0.6 oz pur e alcohol) [facility] Utilities Answer Date Recorded In the past 12 months has e [employer], oil, or water [employer] threatened to shut off services in your [...] any time in the past 12 m [facility], were you homeless or living in a alf (including now)? No 01/19/2025 Sex and Gender [...] patient's age to complete this topic Insurance [employer] Advance Directives * Full Code (Latest Code Status on File) Date Activated Date Inactivated Comments 01/20/2025 5:09 AM 01/21/2025 6:55 PM Care Teams Design Drafter Relationship Specialty Start Date End Date Natalie Baum NP [address] [place] [address] PCP - General FAMILY PRACTICE 01/19/25
--- OUTSIDE RECORDS SUMMARY | 2025-10-29 11:50 | XMS_ITS | Encounter Summary ---
Author Organization [facility] Address [address] [place] [address] Phone Care Team Providers Care Orientation & Mobility Specialist Name Role Phone Matthew Mccabe MD Primary Care Prov ider Stan Meza MD Unavailable [phone] Natalie Baum NP Unavailable [phone] Encounter Details Date Type Department Care Team (Late st Contact Info) Description 10/28/2025 Documentation [facility] Medicine Oncology [address] [facility] Floor [address] [place] [address] Sarah Brunner LCSW Social History [...] on file 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 Transportation has been arranged for: DATE: 11/06 PICK-UP TIME: 730am PICK-UP TIME FOR RETURN TRIP: Will call TRIP NUMBER: [id number] CONTACT TELEPHONE #: [phone] Patient is aware of these arrangements and in agreement with plan. YARD WORKER documented in this encounter Plan of Treatment Not on file documented as of this encounter Visit Diagnoses Not on filedocumented in this encounter Care Teams Orientation & Mobility Specialist Relationship Specialty Start Date End Date Matthew Mccabe MD PCP - General Family Medicine 05/13/24 Stan Mzea MD Medical Oncologist/Emergency Care Tech Medical Oncology 06/28/24 Natalie Baum NP [address] [place] [address] [place] [address] Nurse Practitioner Family Practice 03/26/25 documented as of this encounter
--- OUTSIDE RECORDS SUMMARY | 2025-10-29 11:50 | XMS_ITS | Encounter Summary ---
Author Organization [facility] Address [address] [place] [address] Phone Care Team Providers Care Standards Engineer Name Role Phone Matthew Mccabe MD Primary Care Prov ider Stan Meza MD Unavailable [phone] Natalie Baum NP Unavailable [phone] Encounter Details Date Type Department Care Team (Late st Contact Info) Description 10/28/2025 Orders Only [facility] Medicine Oncology [address] [facility] [address] [place] [address] Sasha Hernandes RN Metastasis to bone (Primary Dx); Primary cancer of left lower lobe of lung (HCC); Prophylaxis for chemotherapy-induced neutropenia Social History Tobacco [...] on file 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 Gender Identity Not on file Sexual Orientation Not on file documented as of this encounter Plan of Treatment Scheduled Orders Name Type Priority Associated Diagnoses Orde r Schedule Comprehensive metabolic panel Lab STAT Metastasis to bone Primary cancer of left lower lobe of lung (HCC) Prophylaxis for chemotherapy-induced neutropenia Expected: 11/06/2025, Expires: 11/06/2026 CBC with auto differential Lab Routine Metastasis to bone Primary cancer of left lower lobe of lung (HCC) Prophylaxis for chemotherapy-induced neutropenia Expected: 11/06/2025, Expires: 11/06/2026 documented as of this encounter Visit Diagnoses Diagnosis Metastasis to bone- Primary Secondary malignant neoplasm of bone and bone marrow Primary cancer of left lower lobe of lung (HCC) Prophylaxis for chemotherapy-induced neutropenia documented in this encounter Orders Appointment Requests Count Last Ordered Date Fi rst Ordered Date ONCBCN CLINIC APPOINTMENT REQUEST 1 025 ONCBCN LAB APPOINTMENT 1 10/28/2025 ONCBCN RETURN CHEMO 1.5HRS 1 10/28/2025 documented in this encounter Care Teams Standards Engineer Relationship Specialty Start Date End Date Matthew Mccabe MD PCP - General Family Medicine 05/13/24 Stan Meza MD Medical Oncologist/Bacteriologist Industrial Medical Oncology 06/28/24 Natalie Baum NP [address] [place] [address] Nurse Practitioner Family Practice 03/26/25 documented as of this encounter
--- OUTSIDE RECORDS SUMMARY | 2025-10-29 11:51 | XMS_ITS | Encounter Summary ---
Author Organization [facility] Address [address] [place] [address] Care Team Providers Care Field Service Poultry Technician Name Role Phone Ian Pollock MD Primary Care Provider [phone] Katina Casiano DO Unavailable [phone] Xavi ACOSTA MD, Jameel Gaviria Primary Care Provider + Katina Casiano DO Unavailable [phone] Tracey Ang Unavailable Unavailable Belkis Angel TELEVISION AUDIO ENGINEER-HEAD OF TRANSPORT LOGISTICS Primary Care Provider + Natalie Baum Primary Care Provider [phone] Encounter Details Date Type Department Care Team (Late st Contact Info) Description 03/03/2022 Telephone [facility] [address] [place] [address] Alvarez Duarte MD [address] [address] Social History Tobacco Use Types Packs/Day Years [...] on file 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 He is having transportation issues med [employer] does not run that late. He will call back to schedule when he can figure out his transportation. Please cancel this appt for him. Patient Call Back number: [phone] documented in this encounter Plan of Treatment Not on file documented as of this encounter Goals Goal Patient Goal Type Associated Problems Recent Progress Patient-Stated? Author Mobility General No Stephanei Gallegos, ALYX Note: Expected end date: *10/30/2019 The goal is to maintain or improve your mobility at the optimum level for you. Interventions: documented as of this encounter Visit Diagnoses Not on filedocumented in this encounter Care Teams Field Service Poultry Technician Relationship Specialty Start Date End Date Ian Pollock MD [address] [facility] [place] [place] [address] PCP - General 08/21/20 05/29/23 Jameel Hurley III, MD [address] [facility] [place] [phone] PCP - General Internal Medicine 06/05/23 08/28/23 Belkis Angel APRN-HEAD OF TRANSPORT LOGISTICS [address] [place] [phone] PCP - General Nurse Practitioner 08/29/23 05/05/24 Natalie Baum [address] [place] [address] PCP - General 05/06/24 Katina Casiano DO [address] [facility] [place], [place] Resident - PCP Internal Medicine 08/10/22 05/29/23 Katina Casiano DO [address] [facility] [place], [place] Hospitalist 06/05/23 Tracey Ang PA [address] [facility] [place] [address] Physician Mortgage Counselor 08/15/23 documented as of this encounter
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
--- OUTSIDE RECORDS SUMMARY | 2025-10-29 11:52 | XMS_ITS | Clinical Summary ---
Author Organization [facility] Address [address], [facility] [address] [place] [address] Phone Care Team Providers Care Manager Of Distribution Name Role Phone Patito Randalli Israel CONSTRUCTION TRENCH DIGGER, PROOFREADER Unavailable Allergies Active Allergy Reactions Criticality Noted [...] Comments Blood Pressure 142/74 11/06/2017 2:41 PM PRESSER FIRST Pulse 77 11/06/2017 2:41 PM PRESSER FIRST Temperature 36.1 C (97 F) 11/06/2017 2:41 PM PRESSER FIRST Respiratory Rate 18 11/06/2017 2:41 PM PRESSER FIRST Oxygen Saturation 99% 11/06/2017 8:00 AM PRESSER FIRST Inhaled Oxygen Concentration - - Weight 113.4 kg (250 lb) 11/03/2017 6:25 PM PRESSER FIRST Height 175.3 cm (5' 9) 11/03/2017 6:25 PM PRESSER FIRST Body Mass Index 36.92 11/03/2017 6:25 PM PRESSER FIRST Plan of Treatment Health Maintenance Due Date [...] CHEST W/O CONTRAST STAT 11/03/2017 11:30 PM PRESSER FIRST from Last 3 Months or Most Recently Relevant to Health Maintenance Results * CT CHEST W/O CONTRAST (11/03/2017 11:30 PM PRESSER FIRST) Anatomical Region Laterality Modality Chest N/A Computed Tomogra phy 11/04/2017 12:2 4 AM PRESSER FIRST Impressions 11/04/2017 12:28 AM PRESSER FIRST IMPRESSION: 1. A few nonspecific scattered ground-glass infiltrates in the bilateral upper lobes, which may represent pneumonia. 2. Mild paraseptal emphysema. Automated exposure control was used as a dose optimization technique for this examination. Narrative 11/04/2017 12:28 AM PRESSER FIRST EXAMINATION: CT chest without contrast HISTORY: Cough, [...] Maintenance Insurance [address] [place] [id number] Advance Directives * Full Code (Latest Code Status on File) Date Activated Date Inactivated Comments 11/04/2017 9:36 AM 11/06/2017 6:27 PM CPR-Full Treat ment: FULL ARREST: Attempt Resuscitation/CPR wit intubation and mechanical ventilation. PRE-ARREST: Use entire range of life support measures to stabilize the patient. Care Teams Manager Of Distribution Relationship Specialty Start Date End Date Montserrat Randall, CONSTRUCTION TRENCH DIGGER, PROOFREADER Nurse Practitioner Advanced Practice Nurse 10/21/16
--- OUTSIDE RECORDS SUMMARY | 2025-10-29 11:52 | XMS_ITS | Encounter Summary ---
Author Organization [facility] Address [address] [place] [address] Care Team Providers Care Sample Clerk Name Role Phone Monica Tellez SWEATBAND SEPARATOR-AUXILIARY POWER EQUIPMENT OPERATOR Primary Care Provi cristobal Ian Pollock MD Primary Care Provider [phone] Ian Pollock MD Primary Care Provider [phone] Ian Pollock MD Primary Care Provider [phone] Ian Pollock MD Primary Care Provider [phone] Ian Pollock MD Primary Care Provider [phone] Katina Casiano DO Unavailable [phone] Xavi ACOSTA MD, Fred R Primary Care Provider + Katina Casiano DO Unavailable [phone] Tracey Ang Unavailable Unavailable Belkis Angel SWEATBAND SEPARATOR-AUXILIARY POWER EQUIPMENT OPERATOR Primary Care Provider + Natalie Baum Primary Care Provider [phone] Reason for Visit * Reason Onset Date Comments Results 10/25/2019 Encounter Details Date Type Department Care Team (Late st Contact Info) Description 10/25/2019 Telephone [facility] [address] [address] Monica Tellez, SWEATBAND SEPARATOR-AUXILIARY POWER EQUIPMENT OPERATOR [address] [facility] [place] [address] Results Social History Tobacco Use Types Packs/Day [...] on file 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 This TNs. Found HCTTE 2D w/Con Doppler/color CMPT Done 10/25/2019, in chart under Cardiac tab, Faxed to [facility]. Pt request callback: [phone]. Pt seems very nervous about his results. PATIENT CARE * Telephone Encounter - Monica Tellez APRN-CNP - 10/25/2019 1:56 PM RN PATIENT CARE Please find out what ultrasound he had. Have not ultrasound results. Who would have ordered this and where?? Monica Gavin [facility] Telle[facility] PATIENT CARE * Telephone Encounter - Maria Isabel William RN - 10/25/2019 1:47 PM CST Patient nervous about ultrasound result Please call [phone] PATIENT CARE documented in this encounter Plan of Treatment [...] on filedocumented in this encounter Care Teams Sample Clerk Relationship Specialty Start Date End Date Monica Tellez APRN-CNP PCP - General 07/03/19 11/13/19 Ian Pollock MD PCP - General 11/14/19 12/12/19 Ian Pollock MD PCP - General 12/13/19 05/25/20 Ian Pollock MD PCP - General 05/26/20 06/15/20 Ian Pollock MD [address] [facility] [place] [address] PCP - General 07/31/20 08/20/20 Ian Pollock MD [address] [facility] [place] [address] PCP - General 08/21/20 05/29/23 Jameel Hurley III, MD [address] [facility] [place] [id number] PCP - General Internal Medicine 06/05/23 08/28/23 Belkis Angel, SWEATBAND SEPARATOR-AUXILIARY POWER EQUIPMENT OPERATOR [address] [place] [phone] PCP - General Nurse Practitioner 08/29/23 05/05/24 Natalie Baum [address] [place] [address] PCP - General 05/06/24 Katina Casiano DO [address] [facility] INTERNAL MEDICINE [place], [place] Resident - PCP Internal Medicine 08/10/22 05/29/23 Katina Casiano DO [address] [facility] [place] Hospitalist 06/05/23 Tracey Ang PA [address] [facility] [place] [address] Physician Vice President [employer]idential [employer] Sales 08/15/23 documented as of this encounter
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
--- OUTSIDE RECORDS SUMMARY | 2025-10-29 11:52 | XMS_ITS | Encounter Summary ---
Author Organization [facility] Address [address] [place] [address] Care Team Providers Care Sales Consulting Director Name Role Phone Monica Tellez PHLEBOTOMY SERVICES REPRESENTATIVE-WOOLEN TESTER Primary Care Provi cristobal Ian Pollock MD Primary Care Provider [phone] Ian Pollock MD Primary Care Provider [phone] Ian Pollock MD Primary Care Provider [phone] Ian Pollock MD Primary Care Provider [phone] Ian Pollock MD Primary Care Provider [phone] Katina Casiano DO Unavailable [phone] Xavi ACOSTA MD, Fred R Primary Care Provider + Katina Casiano DO Unavailable [phone] Tracey Ang Unavailable Unavailable Belkis Angel PHLEBOTOMY SERVICES REPRESENTATIVE-WOOLEN TESTER Primary Care Provider + Natalie Baum Primary Care Provider [phone] Reason for Visit * Reason Onset Date Comments Appointment 09/11/2019 Encounter Details Date Type Department Care Team (Late st Contact Info) Description 09/11/2019 Telephone [facility] [address] [address] Monica Tellez, PHLEBOTOMY SERVICES REPRESENTATIVE-WOOLEN TESTER [address] [facility] [address] [facility] [place] [address] Appointment Social History Tobacco Use Types Packs/Day [...] on file 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 Gender Identity Not on file Sexual Orientation [...] disconnected Called again 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 documented in this encounter Plan of Treatment [...] filedocumented in this encounter Care Teams Sales Consulting Director Relationship Specialty Start Date End Date Monica Tellez, PHLEBOTOMY SERVICES REPRESENTATIVE-WOOLEN TESTER PCP - General 07/03/19 11/13/19 Ian Pollock MD PCP - General 11/14/19 12/12/19 Ian Pollock MD PCP - General 12/13/19 05/25/20 Ian Pollock MD PCP - General 05/26/20 06/15/20 Ian Pollock MD [address] [facility] [place] [address] PCP - General 07/31/20 08/20/20 Ian Pollock MD [address] [facility] [place] [address] PCP - General 08/21/20 05/29/23 Jameel Hurley III, MD [address] [facility] [place] [address] PCP - General Internal Medicine 06/05/23 08/28/23 Belkis Angel, PHLEBOTOMY SERVICES REPRESENTATIVE-WOOLEN TESTER [address] [facility] [address] [place] [address] PCP - General Nurse Practitioner 08/29/23 05/05/24 Natalie Baum [address] [place] [address] PCP - General 05/06/24 Katina Casiano DO [address] [facility] INTERNAL MEDICINE [place], [place] Resident - PCP Internal Medicine 08/10/22 05/29/23 Katina Casiano DO [address] [facility] [place], [place] Hospitalist 06/05/23 Tracey Ang PA [address] [facility] [place] [address] Physician Dado Operator 08/15/23 documented as of this encounter
--- OUTSIDE RECORDS SUMMARY | 2025-10-29 11:52 | XMS_ITS | Encounter Summary ---
Author Organization [facility], [facility] Address [address] [place] [address] Care Team Providers Care Pompom Maker Name Role Phone Monica Tellez CUT AND COVER LINE WORKER-PHYSICAL GEOGRAPHER Primary Care Provi cristobal Ian Pollock MD Primary Care Provider [phone] Ian Pollock MD Primary Care Provider [phone] Ian Pollock MD Primary Care Provider [phone] Ian Pollock MD Primary Care Provider [phone] Ian Pollock MD Primary Care Provider [phone] Katina Casiano DO Unavailable [phone] Xavi ACOSTA MD, Fred R Primary Care Provider + Katina Casiano DO Unavailable [phone] Tracey Ang Unavailable Unavailable Belkis Angel CUT AND COVER LINE WORKER-PHYSICAL GEOGRAPHER Primary Care Provider + Natalie Baum Primary Care Provider [phone] Reason for Visit * Reason Onset Date Comments General 11/12/2019 Encounter Details Date Type Department Care Team (Late st Contact Info) Description 11/12/2019 Telephone [facility] [address] [place] [address] Monica Tellez, CUT AND COVER LINE WORKER-PHYSICAL GEOGRAPHER [address] [facility] [place] [address] General Social History Tobacco Use Types Packs/Day [...] on file 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 He was upset that I told him to ask his pulmonary doctor to order low dose CT since pulmonary was the one who usually ordered this. MARISOL Díaz MILL ROLLER * Telephone Encounter - Nadeem Hancock - 11/12/2019 1:07 PM CST Pt called to request to be released from the provider's care. Caller stated that the provider has done a couple of things to rub him the wrong way, and he would like another provider. Pt provided call back number [phone] Message routed to provider for review and assistance MILL ROLLER documented in this encounter Plan of Treatment [...] on filedocumented in this encounter Care Teams Pompom Maker Relationship Specialty Start Date End Date Monica Tellez APRN-PHYSICAL GEOGRAPHER PCP - General 07/03/19 11/13/19 Ian Pollock MD PCP - General 11/14/19 12/12/19 Ian Pollock MD PCP - General 12/13/19 05/25/20 Ian Pollock MD PCP - General 05/26/20 06/15/20 Ian Pollock MD [address] [place] [address] PCP - General 07/31/20 08/20/20 Ian Pollock MD [address] [place] [address] PCP - General 08/21/20 05/29/23 Jameel Hurley III, MD [address] DIV OF [facility] [place] [address] PCP - General Internal Medicine 06/05/23 08/28/23 Belkis Angel, CUT AND COVER LINE WORKER-PHYSICAL GEOGRAPHER [address] [phone] PCP - General Nurse Practitioner 08/29/23 05/05/24 Natalie Baum [address] [place] [address] PCP - General 05/06/24 Katina Casiano DO [address] DIV OF [facility] INTERNAL MEDICINE [place], [place] Resident - PCP Internal Medicine 08/10/22 05/29/23 Katina Casiano DO [address] DIV OF [facility] INTERNAL MEDICINE [place], [place] Hospitalist 06/05/23 Tracey Ang PA [address] DIV OF [facility] [place] [address] Physician Spanish Moss Picker 08/15/23 documented as of this encounter
--- OUTSIDE RECORDS SUMMARY | 2025-10-29 11:52 | XMS_ITS | Data Portability ---
Author Organization [place] - [facility], Main Office Address [address] [place] [address] Assessment Encounter Date Assessment Date Assessment LastModified by Organization Details LastModified Time 02/06/2025 02/06/2025 This note is dictated and transcribed by [employer]. Large Animal Husbandry Technician variances may occur. Despite proofreading, typographical errors may occur. Occasional wrong-word or 'qiviz-j-pbui' substitutions may have occurred due to the inherent limitations of voice recording. Read the chart carefully and recognize, using context, where substitutions have occurred. Not available 02/06/2025 09:27:31 03/27/2025 03/27/2025 This note is dictated and transcribed by [employer]. Large Animal Husbandry Technician variances may occur. Despite proofreading, typographical errors may occur. Occasional wrong-word or 'ofran-e-zokh' substitutions may have occurred due to the inherent limitations of voice recording. Read the chart carefully and recognize, using context, where substitutions have occurred. Not available 03/27/2025 15:54:31 04/29/2025 04/29/2025 This note is dictated and transcribed by [employer]. Large Animal Husbandry Technician variances may occur. Despite proofreading, typographical errors may occur. Occasional wrong-word or 'rljvk-b-ljza' substitutions may have occurred due to the [...] US, duplex, arterial, lower extremity 2024 025 [facility] (Radiology), [address] [place], [address], 15:25:48 Medication Orders None recorded. Patient TargetsNo targets recorded. Patient Instructions Encounter Date Encounter Id Patient Instructions Last Modified By Organization Details Last Modified Time 02/06/2025 [id number] (LYNNETTE) ankle brachial index* - both sides lower legs [email or web address] Not available 02/25/2025 15:26:58 Reason for Referral None Reported. Results Created Date Observation Date Name Description Value Unit Range Abnormal Flag Note LastModifiedBy Organization Detail LastModifiedTime 02/26/2002/24/2025 US, duple x, arter ial, lower extre mity No observ ation record ed. [email or web address] (Radiology) [address] [place], [address], 02/25/2025 18:10:38 Result Notes None recorded. Problems Name Problem SNOMED Code Status Onset Date Resolution Date Notes Provider Name and Address Organization Details Recorded Time Bilateral ingrowing nail of toe of feet 1255909780065 9102 Active 2024 David Nguyen DPM [address], [place], [address], [employer] 5 09:27:38 Peripheral arterial occlusive disease 286960139 Active 2024 David Nguyen DPM [address], [place], [address], [employer] 5 09:28:05 Pain in toe 854548974 Active 2024 David Nguyen DPM [address], [place], [address], [employer] 5 09:28:35 Cigarette smoker 07177857 Active 2024 David Nguyen DPM [address], [place], [address], [employer] 5 09:29:18 Dystrophia unguium 08518916 Active 2024 David Nguyen DPM [address], [place], [address], [employer] [facility] 5 11:12:02 Problem Notes None recorded. Procedures Surgical History Date Name Laterality Status Provider Name and Address Organization Details Recorded Time 5 Nail Debridement completed David Nguyen DPM [address], [place], [address], [employer] 04/29/2025 11:11:37 5 Partial Nail Avulsion Chemical Matrixectomy-Ri ght completed David Nguyen DPM [address], [place], [address], [facility] 03/27/2025 15:54:16 5 Partial Nail Avulsion Chemical Matrixectomy-Le ft completed David Nguyen DPM [address], [place], [address], [facility] 03/27/2025 15:53:53 Hand completed Kelsey Gay [employer] [facility] [employer] [facility] 02/06/2025 09:38:07 Knee Surgery completed Kelsey Gay [facility]erved [facility] [employer] [facility] 02/06/2025 09:38:15 Imaging Results None recorded. [...] /min 98 % 175.26 cm 28.8 kg/m2 79751.5 1 g 148/95 mm[Hg] Kelsey Gay [facility] [employer] [facility] 09:12:43 Date Recorded Body height Body mass index (BMI) Body weight Heart rate Respiratory rate Oxygen saturation Systolic And Diastolic Provider Name and Address Organization Details Last Updated DateTime 175.26 cm 28.8 kg/m2 70293.5 1 g 99 /min 14 /min 98 % 90/61 mm[Hg] Kelsey Gay [facility] [employer] [facility] 14:08:36 Date Recorded Body height Body mass index (BMI) Body weight Heart rate Oxygen saturation Body temperature Systolic And Diastolic Provider Name and Address Organization Details Last Updated DateTime 175.26 cm 28.8 kg/m2 49733.5 1 g 85 /min 94 % 98.1 [degF] 114/80 mm[Hg] ALFONZO Mayorga [facility] [employer] [facility] 10:35:33 Social History Question Answer Notes LastModified by [employer] Details LastModified Time Tobacco Smoking Status Current Every Day Smoker Kelsey Gay [facility] [employer] [facility] 02/06/2025 09:37:54 What Is Your Level Of Caffeine Consumption? Occasional Information not available 02/06/2025 What Was The Date Of Your Most Recent Tobacco Screening? 04/29/2025 [email or web address] Information not available 04/29/2025 Has Tobacco Cessation Counseling Been Provided? No Information not available 02/06/2025 Sex: Unknown Functional Status Question Answer Note LastModified by [employer] Details LastModified Time Do you use any [...] ICD10 Code Diagnosis IMO Codes Diagnosis Note [id number] David Nguyen DPM [facility] [place] [address] [place] [address] 02/06/2025 08:59:45 02/10/2025 12:54:52 Pain in toe 926540963 M79.674 M79.675 bilateral great toes Bilateral ingrowing nail of toe of feet 4910731240 2271076 L60.0 medial border both great toenailspl an February 25 partial chemical matrixecto my medial border both great toes- pending arterial studiesedu cated on treatment optionswil l obtain vascular studies to ensure adequate healing secondary to lower extremity peripheral arterial disease Peripheral arterial occlusive disease 671910610 I73.9 obtain noninvasiv e vascular studies to ensure adequate healing for upcoming in office procedures shawn has difficulty walking and has intermitte nt claudicati on symptomsde nies any open wounds Cigarette smoker 2489018 7 F17.210 4-5 dailyhas COPD and lung cancerreco mmend discontinu e smokingsid e effects of smoking reviewed with the patient [id number] David Nguyen DPM [facility] [place] [address] [place] [address] 03/27/2025 13:43:46 04/10/2025 15:22:17 Pain in toe 018139494 M79.674 M79.675 bilateral great toes Bilateral ingrowing nail of toe of feet 3522410387 9893699 L60.0 medial border both great toenailsch emical matrixecto my both medial borders great toeswound care and dressing instructio ns reviewedFo llow-up 2 weeks Peripheral arterial occlusive disease 299951852 I73.9 reviewed- diminished flow bilateral ankles but intact Cigarette smoker 4889967 7 F17.210 4-5 dailyhas COPD and lung cancerreco mmend discontinu e smokingsid e effects of smoking reviewed with the patient [id number] David Nguyen DPM [facility] Podiat[facility] [place] [address] [address] 04/29/2025 10:12:02 04/30/2025 15:51:00 Bilateral ingrowing nail of toe of feet 5098119828 0927356 L60.0 medial border both great toenailsch emical matrixecto my both medial borders great toes-- Resolvedfo llow-up as needed Dystrophia unguium 43280 009 L60.3 1010 Nails 1 through 10 [...] Holden Member ID Guarantor Name 02/06/2025 1 [facility] - DOS PRIOR TO 2021 (MEDICAID REPLACEMENT - HMO) Josafat Calvo [id number] Josafat Calvo 07/28/2025 1 [facility] - DOS ON OR AFTER 2020 - DUAL ELIGIBLE (MEDICARE REPLACEMENT/AD VANTAGE - HMO) Josafat Branch Umesh [id number] Josafat Branch Umesh Notes Date Note Type [...] any other complaints. David Nguyen DPM [address], [place], [address], [employer] 02/06/2025 10:00:48 03/27/2025 text/html . Patient is [...] complaints. David Nguyen DPM [address], [place], [address], [employer] 03/27/2025 15:56:17 04/29/2025 text/html . Patient is a 64-year-old male who returns to the office for follow-up on bilateral ingrown toenails which are completely healed and resolved. Patient denies any new complaints he has elongated toenails and would like to have them cut as he has difficulty cutting them. Patient denies any other complaints. David Nguyen DPM [address], [place], [address], [employer] 04/29/2025 11:12:41
--- OUTSIDE RECORDS SUMMARY | 2025-10-29 11:52 | XMS_ITS | Encounter Summary ---
Author Organization [facility] Address [address] [place] [address] Care Team Providers Care Welder Metal Fab Name Role Phone Ian Pollock MD Primary Care Provider [phone] Ian Pollock MD Primary Care Provider [phone] Ian Pollock MD Primary Care Provider [phone] Ian Pollock MD Primary Care Provider [phone] Katina Casiano DO Unavailable [phone] Xavi ACOSTA MD, Fred R Primary Care Provider + Katina Casiano DO Unavailable [phone] Tracey Ang PA Unavailable Unavailable Belkis Angel COUNTY ADVISER-CLOTH BOOKER Primary Care Provider + Natalie Baum Primary Care Provider [phone] Reason for Visit * Reason Onset Date Comments Referral 12/13/2019 Encounter Details Date Type Department Care Team (Late st Contact Info) Description 12/13/2019 Telephone [facility] [address] [place] [address] Monica Tellez, COUNTY ADVISER-CLOTH BOOKER [address] [place] [address] Referral Social History Tobacco Use [...] on file 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 Pollock will be going to very part-time in March, but patient apprised this TNs thathe had called for a more current appointment, and is to see Dr. Pollock today. ER MOLDING AND COREMAKING MACHINES * Telephone Encounter - Monica Tellez APRN-CNP - 12/16/2019 4:30 PM SETTER MOLDING AND COREMAKING MACHINES Do not know any surveillance systems engineer on [facility]. He will need to call his insurance company for list of [place] surveillance systems engineer. His appt was to be changed from Dr Pollock to a resident since Dr Pollock will be going to very supervisor last model department in March and should not have new patients. MARISOL Díaz ER MOLDING AND COREMAKING MACHINES * Telephone Encounter - Janice Conn RN - 12/13/2019 10:45 AM SETTER MOLDING AND COREMAKING MACHINES Routing message to Dr Pollock ER MOLDING AND COREMAKING MACHINES * Telephone Encounter - Meenu Hidalgo - 12/13/2019 10:36 AM CST PT is calling and wanting to be referred to a surveillance systems engineer on the [facility]. PT stats it wouldbe more convenient and easier for the med cab. PT CBN:[phone] ER MOLDING AND COREMAKING MACHINES documented in this encounter Plan of Treatment [...] filedocumented in this encounter Care Teams Welder Metal Fab Relationship Specialty Start Date End Date Ian Pollock MD PCP - General 12/13/19 05/25/20 Ian Pollock MD PCP - General 05/26/20 06/15/20 Ian Pollock MD [address] [place] [address] PCP - General 07/31/20 08/20/20 Ian Pollock MD [address] DIV OF [facility] [place] [address] PCP - General 08/21/20 05/29/23 Jameel Hurley III, MD [address] DIV OF [facility] [place] [address] PCP - General Internal Medicine 06/05/23 08/28/23 Belkis Angel, COUNTY ADVISER-CLOTH BOOKER [address] [place] [phone] PCP - General Nurse Practitioner 08/29/23 05/05/24 Natalie Baum [address] [place] [address] PCP - General 05/06/24 Katina Casiano DO [address] DIV OF [facility] INTERNAL MEDICINE [place], [place] Resident - PCP Internal Medicine 08/10/22 05/29/23 Katina Casiano DO [address] DIV OF [facility] INTERNAL MEDICINE [place], [place] Hospitalist 06/05/23 Tracey Ang PA [address] DIV OF [facility] [place] [address] Physician Manager Digital Ad Operations 08/15/23 documented as of this encounter
--- NOTE | 2025-10-29 12:55 | ED_ITS ---
HPI - SOB/Dyspnea General Chief Complaint: Shortness of Breath/Dyspnea <Ludivina Johnson PA-C - Last Filed: 10/29/25 13:04> Stated Complaint: sob <Ludivina Johnson PA-C - Last Filed: 10/29/25 13:04> Time Seen by Provider: 10/29/25 12:56 <Ludivina Johnson PA-C - Last Filed: 10/29/25 13:04> Focused HPI: Patient is a 65-year-old male who presents the ED via EMS with report of shortness of breath. Patient has history of lung cancer and chronic hypoxic respiratory failure on 3 L home O2 prn. Was recently admitted here for sepsis/pneumonia, discharge on 10/27. States since being discharged he has not been doing well. Has required oxygen / at home. Complains of persistent cough, increased shortness of breath. Also reports having headache over the past 2 days. Has been taking Tylenol without improvement. Denies fevers, chest pain. Patient states his chemotherapy has been pause because he is currently on antibiotics. He sees Dr. Meza with [facility]. GENERAL: Mildly ill-appearing, well-nourished, and in no acute distress. HEAD: Normocephalic, atraumatic. CHEST: No respiratory distress. Scattered rhonchi. Frequent coughing. HEART: Regular rate and rhythm.? NEURO: ?Alert and oriented x3. Patient screened in triage and initial orders placed.? ?Additional care and disposition to be based upon?diagnostic testing and treatment. <Ludivina Johnson PA-C - Last Filed: 10/29/25 13:04> Source: patient <Ludivina Johnson PA-C - Last Filed: 10/29/25 13:04> RN notes reviewed <Malu Downing MD - Last Filed: 10/30/25 20:24> Mode of arrival: EMS <Ludivina Johnson PA-C - Last Filed: 10/29/25 13:04> Limitations: no limitations <VELASQUEZ Soto Last Filed: 10/29/25 13:04> History of Present Illness HPI Narrative: Agree with the above with the following additions/corrections: Patient presents with report of shortness of breath. He reports the symptoms have been going on for the past few days. He was recently diagnosed and admitted for pneumonia and discharged. Since discharge he has been taking his antibiotics and other medications. Patient has a history of COPD/emphysema as well as asthma and also lung cancer for which he undergoes chemo with his last treatment 2 weeks ago. He reports that his oxygen saturation has been fine and his SOB is less concerning than his symptom of a left sided headache that started yesterday at 5am. He has been taking Tylenol yesterday and today but the headache persists. He notes that he had edema last week but not now. He denies any vision changes. Although the headache is unilateral he denies any unilateral symptoms of his body such as paresthesias or weakness. At baseline he wears 3 L nasal cannula oxygen supplemental E. He is on Eliquis as anticoagulation. He smokes half pack per day. He denies any chest pain. PCP Mark. Cancer treatment through [facility]. <Malu Downing MD - Last Filed: 10/30/25 20:24> Related Data Home Medications: Home Medications ?Medication ?Instructions ?Recorded ?Confirmed ?Last Taken ?Type latanoprost 0.005 % eye drops 1 drp ophthalmic (eye) D AILY 05/05/20 10/24/25 10/24/25 08:00 History alfuzosin 10 mg tablet,extended 10 mg PO DAILY 4 10/24/25 10/24/25 08:00 History release 24 hr buspirone 7.5 mg tablet 7.5 mg PO BID 12/12/2310/2410/24/25 08:00 History carvedilol 12.5 mg tablet 12.5 mg PO Q12H 12/12/2310/24/25 08:00 History hydroxyzine pamoate 100 mg capsule 25 mg PO TID PRN na usea and 12/12/23 10/24/25 10/24/25 08:00 History vomiting lamotrigine 100 mg tablet 25 mg PO DAILY 12/12/2309/3010/24/25 History ziprasidone HCl 80 mg capsule 80 mg PO BID 12/12/2310/24/25 08:00 History morphine 30 mg tablet,extended 30 mg PO Q12H PRN pain 09/13/24 10/24/25 10/24/25 History release ondansetron HCl 8 mg tablet 8 mg PO Q8H PRN Nausea And Vomiting 09/13/24 10/24/25 Unknown History oxycodone 5 mg tablet 10 mg PO Q4H PRN Pain (Scale Score 09/13/24 10/24/25 10/24/25 08:00 History 7-10) eplerenone 25 mg tablet 25 mg PO DAILY 10/24/25 12/04/2310/24/25 08:00 History lorazepam 0.5 mg tablet (Ativan) 0.5 mg PO DAILY 10/2410/24/25 10/24/25 08:00 History mirtazapine 7.5 mg tablet 7.5 mg PO DAILY 10/24/2510/24/25 08:00 History potassium chloride 20 mEq 20 meq PO DAILY 10/24/2510/24/25 08:00 History tablet,extended release(part/cryst) (Klor-Con M) prochlorperazine maleate 10 mg 10 mg PO Q6H PRN nausea and 10/24/25 10/24/25 Unknown History tablet (Compazine) vomiting sennosides 8.6 mg-docusate sodium 2 tab-cap PO DAILY 1 12/25/24 10/24/25 10/24/25 History 50 mg tablet (Senexon-S) tiotropium bromide 18 mcg capsule 1 cap inhalation THERESE LY PRN 10/24/25 10/24/25 Unknown History with inhalation device (Spiriva shortness of breath or wheezing with HandiHaler) tramadol 50 mg tablet 50 mg PO Q12H 10/24/2510/2410/24/25 History <Ludivina Johnson PA-C - Last Filed: 10/29/25 13:04> Allergies/Adverse Reactions: Allergies Allergy/AdvReac Type Severity Reaction Status Date / Time lisinopril Allergy Severe ANGIOEDEMA Verified 10/29/25 11:49 Penicillins Allergy Unknown Swelling Verified 10/29/25 11:49 <Ludivina Johnson PA-C - Last Filed: 10/29/25 13:04> [facility] Past Medical History Medical History: Medical History Non-small cell carcinoma of lung (03/2024) Metastatic Depression Anxiety Bipolar depression BMI 28.0-28.9,adult Hyponatremia Mitral regurgitation Systolic dysfunction Diastolic dysfunction (04/2024) PAF (paroxysmal atrial fibrillation) Cardiomyopathy Arthritis Bronchitis Asthma COPD (chronic obstructive pulmonary disease) HTN (hypertension) Glaucoma <VELASQUEZ Soto Last Filed: 10/29/25 13:04> Surgical History Surgical History: Surgical History History of knee replacement procedure of right knee <VELASQUEZ Soto Last Filed: 10/29/25 13:04> Family History Family History: Family History Father Alcoholism Heart problem Hypertension Sibling Alcoholism Cancer Hypertension Mother Cancer Hypertension Grandparent Diabetes mellitus Heart problem Hypertension Sibling Cancer Hypertension <VELASQUEZ Soto Last Filed: 10/29/25 13:04> Social History Social History: Social History (Updated 10/30/25 @ 20:17 by Malu Downing MD) Smoking packs per day: 0.5 Smoking cigarettes per day: 10.0 Years smoked: 40 Smoking pack-years: 20.00 Smoking status: Current every day smoker Tobacco type: cigarettes Second hand tobacco smoke exposure: Yes Additional smoking assessment comments: Previously 1 ppd, now 0.5 PPD Alcohol intake: former Substance use: never Substance use type: marijuana Other substance usage details: 4 x wk Lack of Transportation: No Lack of Food: Never True Current Housing: I Have Housing Concerned About Future Housing: No Difficulty Paying Gas/Electric Bills: No Difficulty Paying for Meds: No Currently Unemployed: No Education: Decline to Answer Difficulty w/ Childcare or Family Care: No Living arrangements: alone Occupation/Education: 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 Gender identity (if verbalized by the patient): Male Spiritual care concerns: No <VELASQUEZ Soto Last Filed: 10/29/25 13:04> Exam 2 Const: General: healthy appearing, no acute distress and alert; No confusion, diaphoretic or ill appearing <Malu Downing MD - Last Filed: 10/30/25 20:24> Nutritional Appearance: well nourished <MD Aaliyah Esposito Last Filed: 10/30/25 20:24> Orientation/consciousness: patient oriented x3 <Malu Downing MD - Last Filed: 10/30/25 20:24> Limitations: no limitations <MD Aaliyah Esposito Last Filed: 10/30/25 20:24> HENMT: Head: normal to inspection <MD Aaliyah Esposito Last Filed: 10/30/25 20:24> Other: gross auditory acuity intact <MD Aaliyah Esposito Last Filed: 10/30/25 20:24> Eyes: Conjunctivae: conjunctivae normal <MD Aaliyah Esposito Last Filed: 10/30/25 20:24> Neck: Neck: normal visual inspection and no meningeal signs <MD Aaliyah Esposito Last Filed: 10/30/25 20:24> Resp: Effort & Inspection: normal respiratory effort, not labored, no retractions, not tachypneic and no use of accessory muscles <MD Aaliyah Esposito Last Filed: 10/30/25 20:24> Other: not labored; speaking in full sentences <MD Aaliyah Esposito Last Filed: 10/30/25 20:24> Cardio: Rate: regular rate, not bradycardic and not tachycardic <MD Aaliyah Esposito Last Filed: 10/30/25 20:24> GI: GI Palp: Yes Soft to palpation <MD Aaliyah Esposito Last Filed: 10/30/25 20:24> Other: not peritoneal <MD Aaliyah Esposito Last Filed: 10/30/25 20:24> Skin: General skin exam: normal color, no jaundice and no pallor < MD Aaliyah Esposito Last Filed: 10/30/25 20:24> Neuro: General: patient oriented x3, moves all extremities, no meningeal signs and no focal motor deficits <Malu Downing MD - Last Filed: 10/30/25 20:24> Speech: normal speech (without aphasia or dysarthria) <Malu Downing MD - Last Filed: 10/30/25 20:24> Extrem: General: normal to inspection and no edema <Malu Downing MD - Last Filed: 10/30/25 20:24> Psych: Mental Status: mental status grossly normal <Malu Downing MD - Last Filed: 10/30/25 20:24> Affect: normal affect, No Sad affect present and No Anxious affect present < Malu Downing MD - Last Filed: 10/30/25 20:24> Attitude: cooperative <Malu Downing MD - Last Filed: 10/30/25 20:24> Course Vital Signs Vital signs: Vital Signs Temperature 98.5 F 10/29/25 11:52 Pulse Rate 94 10/29/25 11:52 Respiratory Rate 20 10/29/25 11:52 Blood Pressure 134/93 H 10/29/25 11:52 Pulse Oximetry 100 10/29/25 11:52 Oxygen Delivery Nasal Cannula 10/29/25 11:52 Oxygen Flow Rate 3 10/29/25 11:52 Temperature 98.7 F 10/29/25 17:15 Pulse Rate 94 10/29/25 17:15 Respiratory Rate 19 10/29/25 17:15 Blood Pressure 147/100 H 10/29/25 17:15 Pulse Oximetry 100 10/29/25 17:15 Oxygen Delivery Nasal Cannula 10/29/25 15:48 Oxygen Flow Rate 3 10/29/25 15:48 <Ludivina Johnson PA-C - Last Filed: 10/29/25 13:04> Vital Signs Temperature 98.5 F 10/29/25 11:52 Pulse Rate 94 10/29/25 11:52 Respiratory Rate 20 10/29/25 11:52 Blood Pressure 134/93 H 10/29/25 11:52 Pulse Oximetry 100 10/29/25 11:52 Oxygen Delivery Nasal Cannula 10/29/25 11:52 Oxygen Flow Rate 3 10/29/25 11:52 Temperature 98.7 F 10/29/25 17:15 Pulse Rate 94 10/29/25 17:15 Respiratory Rate 19 10/29/25 17:15 Blood Pressure 147/100 H 10/29/25 17:15 Pulse Oximetry 100 10/29/25 17:15 Oxygen Delivery Nasal Cannula 10/29/25 15:48 Oxygen Flow Rate 3 10/29/25 15:48 <Malu Downing MD - Last Filed: 10/30/25 20:24> MDM MDM Narrative Medical decision making narrative: MSE by JACEK in triage <Ludivina Johnson PA-C - Last Filed: 10/29/25 13:04> MSE by JACEK in triage Patient presents with concern for shortness of breath. Recently diagnosed with pneumonia and admitted, just discharged from the hospital. Also has asthma, COPD/emphysema, and lung cancer currently undergoing chemo (last 2 weeks ago). Has been taking medications. He notes his oxygen saturation has been appropriate. Not feeling SOB at the time of my exam. More concerning at the time of my exam, however, is his left sided headache. In the emergency department he is afebrile with vital signs notable for elevated diastolic blood pressure. He is saturating appropriately on home O2 setting. No leukocytosis or thrombocytopenia. Patient has a normocytic anemia stable from previous. Viral swab negative. Lactic acid normal. Normal renal function. Chronic hyponatremia. From triage, initial orders placed for diphenhydramine, metoclopramide and acetaminophen. Will add magnesium and IV fluids. I did receive a phone call from CT requesting obtaining abd/pelvis given a lot of gas seen while obtaining chest. Troponin normal. After negative head CT, The patient's headache was treated symptomatically with ketorolac. BNP is elevated where as it had not previously been. However, he does not appear volume overloaded, on exam or on imaging, both CXR and CT. Upon reevaluation, he states that his headache is gone and he feels comfortable going home now that this symptoms better. He has been saturating appropriately throughout. We did discuss the elevated BNP. He notes he can follow up with his PCP. Will give 1 time dose of dexamethasone this has been shown to reduce the occurrence of rebound/bounce-back headache. He is otherwise stable for discharge. He can call someone for transportation and he came to the emergency department by ambulance that brought his oxygen tank/concentrator. He will continue to take the rest of the course of his antibiotics and his other medications as prescribed. Discharged with Rx for APAP (no nsaids given on Elliquis). == Of note, Given patient's metastatic cancer, recommend continuing conversations of goals of care to establish values and wishes as discuss further treatments and interventions. Of note, Medicare guidelines for hospice eligibility a for patients with cancer are as follows: Patient will considered to be in the terminal stage ( life expectancy of 6 months or less) if they meet ALL of the following criteria: 1. clinical findings of malignancy with widespread, aggressive or progressive disease as evidenced by increasing symptoms, worsening lab values and or evidence of metastatic disease. 2. Palliative performance scale (PPS) </=70% 3. refuses further life-prolonging therapy OR continues to decline in spite of definite therapy. Supporting documentation includes: Hypercalcemia >12 Cachexia or weight loss of 5% past 3 months Signs and symptoms of advanced disease ( nausea, requirement for transfusions, malignant ascites or pleural effusion, etc.) Given this, although not currently meeting critiera, a palliative care consult might be appropriate if patient desires in the future. <Malu Downing MD - Last Filed: 10/30/25 20:24> Differential Diagnosis Differential Diagnosis: Shortness of breath possibly multifactorial given patient known history of asthma, COPD/emphysema, recent diagnosis of pneumonia with suspected sequelae, also considered acute viral syndrome, pulmonary hypertension, acute heart failure, sequelae/worsening of known malignancy ACS. Headache: Possible benign such as tension headache, migraine, other headache of nonemergent etiology however also considered subarachnoid hemorrhage, subdural/epidural hematoma, temporal arteritis. Patient is at increased risk given his history of Eliquis as well as history lung cancer which puts him at risk of metastases <Malu Downing MD - Last Filed: 10/30/25 20:24> Medical Records I have reviewed the following patient records and this information was taken into consideration when formulating the assessment and plan.: previous labs and previous hospitalizations <Malu Downing MD - Last Filed: 10/30/25 20:24> Lab Data MDM Lab Attestation statement: I personally reviewed the patient's lab results. <Malu Downing MD - Last Filed: 10/30/25 20:24> Result diagrams: 10/29/25 13:14 10/29/25 14:48 <Ludivina Johnson PA-C - Last Filed: 10/29/25 13:04> Labs: Lab Results 10/29/25 10/29/25 10/29/25 Range/Units 13:14 14:44 14:48 WBC 7.3 (4.5-10.0) K/mm3 RBC 4.15 L (4.6-6.20) M/mm3 Hgb 11.4 L (14.0-18.0) g/dL Hct 34.8 L (42.0-52.0) % MCV 83.9 (80-100) fl MCH 27.5 (26-34) pg MCHC 32.8 (32-36) g/dl RDW 16.1 H (11.5-14.5) % Plt Count 167 (150-375) k/mm3 MPV 9.7 (7.4-10.4) fl Immature Gran % (Auto) 0.3 (0-0.5) % Neut % (Auto) 80.6 H (45.5-73.1) % Lymph % (Auto) 11.9 L (18.3-44.2) % Summit % (Auto) 4.9 (2.6-8.5) % Eos % (Auto) 2.2 (0-4.4) % Baso % (Auto) 0.1 L (0.2-1.2) % Lymph # (Auto) 0.87 L (0.9-3.2) K/mm3 Summit # (Auto) 0.4 (0.1-0.6) K/mm3 Eos # (Auto) 0.2 (0-0.3) K/mm3 Baso # (Auto) 0.0 (0.0-0.1) K/mm3 Abs Immat Gran (auto) 0.02 (0.00-0.031) K/mm3 Absolute Neuts (auto) 5.9 (1.3-6.7) K/mm3 Absolute Nucleated RBC 0.000 (0.0-0.012) K/mm3 Nucleated RBC % 0.0 (0.0-0.2) % PT 15.3 H (11.1-14.7) Seconds INR 1.2 APTT 28.5 (22.3-36.8) Seconds Sodium 130 L (137-145) mmol/L Potassium 4.0 (3.4-5.0) mmol/L Chloride 98 (98-107) mmol/L Carbon Dioxide 29 (22-30) mmol/L Anion Gap 3 L (4-12) mmol/L BUN 12 (9-20) mg/dL Creatinine 0.60 L (0.7-1.3) mg/dL Estim Creat Clear Calc Not Reportable Estimated GFR > 60 (59 - ) Glucose 107 (65-110) mg/dL Lactic Acid 1.1 (0.7-2.0) mmol/L Calcium 9.6 (8.4-10.2) mg/dL Magnesium 1.6 (1.6-2.3) mg/dL Total Bilirubin 0.4 (0.2-1.3) mg/dL AST 21 (17-59) U/L ALT 18 (6-50) U/L Alkaline Phosphatase 111 (38-126) U/L Troponin I < 0.012 (0.000-0.034) ng/mL NT-Pro-B Natriuret Pep 1600 H (19.9-100) pg/mL Total Protein 7.2 (6.3-8.2) g/dL Albumin 3.9 (3.5-5.1) g/dL Influenza A (RT-PCR) Negative (Negative) Influenza B (RT-PCR) Negative (Negative) RSV (RT-PCR) Negative (Negative) SARS-CoV-2 RNA (RT-PCR) Negative (Negative) <Ludivina Johnson PA-C - Last Filed: 10/29/25 13:04> Lab Results 10/29/25 10/29/25 10/29/25 Range/Units 13:14 14:44 14:48 WBC 7.3 (4.5-10.0) K/mm3 RBC 4.15 L (4.6-6.20) M/mm3 Hgb 11.4 L (14.0-18.0) g/dL Hct 34.8 L (42.0-52.0) % MCV 83.9 (80-100) fl MCH 27.5 (26-34) pg MCHC 32.8 (32-36) g/dl RDW 16.1 H (11.5-14.5) % Plt Count 167 (150-375) k/mm3 MPV 9.7 (7.4-10.4) fl Immature Gran % (Auto) 0.3 (0-0.5) % Neut % (Auto) 80.6 H (45.5-73.1) % Lymph % (Auto) 11.9 L (18.3-44.2) % Summit % (Auto) 4.9 (2.6-8.5) % Eos % (Auto) 2.2 (0-4.4) % Baso % (Auto) 0.1 L (0.2-1.2) % Lymph # (Auto) 0.87 L (0.9-3.2) K/mm3 Summit # (Auto) 0.4 (0.1-0.6) K/mm3 Eos # (Auto) 0.2 (0-0.3) K/mm3 Baso # (Auto) 0.0 (0.0-0.1) K/mm3 Abs Immat Gran (auto) 0.02 (0.00-0.031) K/mm3 Absolute Neuts (auto) 5.9 (1.3-6.7) K/mm3 Absolute Nucleated RBC 0.000 (0.0-0.012) K/mm3 Nucleated RBC % 0.0 (0.0-0.2) % PT 15.3 H (11.1-14.7) Seconds INR 1.2 APTT 28.5 (22.3-36.8) Seconds Sodium 130 L (137-145) mmol/L Potassium 4.0 (3.4-5.0) mmol/L Chloride 98 (98-107) mmol/L Carbon Dioxide 29 (22-30) mmol/L Anion Gap 3 L (4-12) mmol/L BUN 12 (9-20) mg/dL Creatinine 0.60 L (0.7-1.3) mg/dL Estim Creat Clear Calc Not Reportable Estimated GFR > 60 (59 - ) Glucose 107 (65-110) mg/dL Lactic Acid 1.1 (0.7-2.0) mmol/L Calcium 9.6 (8.4-10.2) mg/dL Magnesium 1.6 (1.6-2.3) mg/dL Total Bilirubin 0.4 (0.2-1.3) mg/dL AST 21 (17-59) U/L ALT 18 (6-50) U/L Alkaline Phosphatase 111 (38-126) U/L Troponin I < 0.012 (0.000-0.034) ng/mL NT-Pro-B Natriuret Pep 1600 H (19.9-100) pg/mL Total Protein 7.2 (6.3-8.2) g/dL Albumin 3.9 (3.5-5.1) g/dL Influenza A (RT-PCR) Negative (Negative) Influenza B (RT-PCR) Negative (Negative) RSV (RT-PCR) Negative (Negative) SARS-CoV-2 RNA (RT-PCR) Negative (Negative) <Malu Downing MD - Last Filed: 10/30/25 20:24> Imaging Data Radiologist's impression: ITS Impressions Chest X-Ray 10/29/25 15:17 Impression: 1: Chronic bilateral interstitial infiltrates which most likely represents edema. Head CT 10/29/25 15:35 IMPRESSION: 1. Moderate scattered nonspecific white matter hypoattenuation consistent with chronic small vessel ischemic disease. No acute intracranial process. Chest/Abdomen/Pelvis CTA 10/29/25 15:51 IMPRESSION: 1. No pulmonary embolism or other acute cardiopulmonary disease or acute intra- abdominal/pelvic process. 2. Mild emphysema with right lung predominant chronic initial lung disease with UIP pattern. 3. 1.6 cm right lower lobe nodule concerning for primary bronchogenic carcinoma with confluent mediastinal and bilateral hilar lymphadenopathy and bilateral adrenal masses consistent with metastatic disease. 4. Unchanged ununited sternal fracture which appears to extend through a lytic lesion concerning for metastatic disease. <Ludivina Johnson PA-C - Last Filed: 10/29/25 13:04> ITS Impressions Chest X-Ray 10/29/25 15:17 Impression: 1: Chronic bilateral interstitial infiltrates which most likely represents edema. Head CT 10/29/25 15:35 IMPRESSION: 1. Moderate scattered nonspecific white matter hypoattenuation consistent with chronic small vessel ischemic disease. No acute intracranial process. Chest/Abdomen/Pelvis CTA 10/29/25 15:51 IMPRESSION: 1. No pulmonary embolism or other acute cardiopulmonary disease or acute intra- abdominal/pelvic process. 2. Mild emphysema with right lung predominant chronic initial lung disease with UIP pattern. 3. 1.6 cm right lower lobe nodule concerning for primary bronchogenic carcinoma with confluent mediastinal and bilateral hilar lymphadenopathy and bilateral adrenal masses consistent with metastatic disease. 4. Unchanged ununited sternal fracture which appears to extend through a lytic lesion concerning for metastatic disease. <Malu Downing MD - Last Filed: 10/30/25 20:24> ECG Data EKG #1: Attestation: I personally reviewed and interpreted this ECG as follows: < Malu Downing MD - Last Filed: 10/30/25 20:24> ECG completion date: 10/29/25 <Malu Downing MD - Last Filed: 10/30/25 20:24> ECG completion time: 11:54 <Malu Downing MD - Last Filed: 10/30/25 20:24> Interpretation: Normal sinus rhythm at a rate of 93 beats per minute. [place] interval 134. QRS 98. QT/QTC 3 4/480. Good R-wave progression across the precordial leads. T-wave flattening in 3 but upright in contiguous inferior leads and no other T-wave inversions. <Malu Downing MD - Last Filed: 10/30/25 20:24> Discharge Plan Discharge Clinical Impression: Shortness of breath, Anemia, Left-sided headache, History of recent pneumonia, Chronic hyponatremia, Elevated brain natriuretic peptide (BNP) level, Emphysema lung, Chronic interstitial lung disease, Right lower lobe pulmonary nodule <Ludivina Johnson PA-C - Last Filed: 10/29/25 13:04> Patient Disposition: Home <Ludivina Johnson PA-C - Last Filed: 10/29/25 13:04> Condition: Stable <Ludivina Johnson PA-C - Last Filed: 10/29/25 13:04> Instructions: Antibiotic Form, Migraine Headache (ED), Hyponatremia (ED), Acute Headache (DC), Anemia (ED), Pulmonary Nodules (ED), Chronic Lung Disease and Infection Prevention (ED), Shortness of Breath (ED) <Ludivina Johnson PA-C - Last Filed: 10/29/25 13:04> Additional Instructions: Acetaminophen/Tylenol (maximum 4000 mg per day) is safe to take for pain relief but you are to continue to avoid NSAIDs like ibuprofen/Motrin/Advil/Aleve given you are on Eliquis. Follow-up with your primary care physician. Return to the emergency department with any new or worsening symptoms. Continue taking all of your medications as prescribed including the rest of the course of your antibiotics for your recent diagnosis of pneumonia. <Ludivina Johnson PA-C - Last Filed: 10/29/25 13:04> Patient Language: Ukrainian <Ludivina Johnson PA-C - Last Filed: 10/29/25 13:04> Prescriptions: New acetaminophen 500 mg capsule 1,000 mg PO Q6H PRN (Reason: pain) Qty: 30 0RF No Action omeprazole 40 mg capsule,delayed release(DR/EC) 40 mg PO DAILY Qty: 90 3RF alfuzosin 10 mg tablet extended release 24 hr 10 mg PO DAILY Rx Instructions: administer after the same meal each day ziprasidone HCl 80 mg capsule 80 mg PO BID Rx Instructions: give with food (meal/snack) carvedilol 12.5 mg tablet 12.5 mg PO Q12H Rx Instructions: must administer with a meal/food buspirone 7.5 mg tablet 7.5 mg PO BID lamotrigine 100 mg tablet 25 mg PO DAILY hydroxyzine pamoate 100 mg capsule 25 mg PO TID PRN (Reason: nausea and vomiting) latanoprost 0.005 % Drops 1 drp OPHTHALMIC (EYE) DAILY ondansetron HCl 8 mg tablet 8 mg PO Q8H PRN (Reason: Nausea And Vomiting) morphine 30 mg tablet extended release 30 mg PO Q12H PRN (Reason: pain) oxycodone 5 mg tablet 10 mg PO Q4H PRN (Reason: Pain (Scale Score 7-10)) sennosides-docusate sodium [Senexon-S] 8.6-50 mg tablet 2 tab-cap PO DAILY prochlorperazine maleate [Compazine] 10 mg tablet 10 mg PO Q6H PRN (Reason: nausea and vomiting) potassium chloride [Klor-Con M20] 20 mEq tablet,ER particles/crystals 20 meq PO DAILY lorazepam [Ativan] 0.5 mg tablet 0.5 mg PO DAILY tramadol 50 mg tablet 50 mg PO Q12H mirtazapine 7.5 mg tablet 7.5 mg PO DAILY eplerenone 25 mg tablet 25 mg PO DAILY tiotropium bromide [Spiriva with HandiHaler] 18 mcg capsule, w/inhalation device 1 cap inhalation DAILY PRN (Reason: shortness of breath or wheezing) Rx Instructions: puncture 1 cap using device; one dose = 2 inhalations benzonatate 100 mg Capsule 100 mg PO TID PRN (Reason: Cough) Qty: 15 0RF guaifenesin [Mucus Relief ER] 600 mg Tablet Extended Release 12hr 600 mg PO Q12HR Qty: 30 0RF prednisone 20 mg Tablet 40 mg PO DAILY@0800 Qty: 4 0RF doxycycline monohydrate 100 mg capsule 100 mg PO BID Qty: 9 0RF cefdinir 300 mg capsule 300 mg PO Q12H Qty: 10 0RF losartan 50 mg tablet See Rx Instructions .ROUTE .COMPLEX Qty: 90 2RF Dose Instruction: TAKE 1 TABLET BY MOUTH EVERY DAY Rx Instructions: TAKE 1 TABLET BY MOUTH EVERY DAY atorvastatin 40 mg tablet 40 mg PO DAILY Qty: 90 3RF Eliquis 5 mg tablet 5 mg PO BID Qty: 60 5RF budesonide-formoterol [Symbicort] 160-4.5 mcg/actuation HFA aerosol inhaler See Rx Instructions .ROUTE .COMPLEX Qty: 10.2 5RF Dose Instruction: INHALE 2 PUFFS BY MOUTH TWICE A DAY. RINSE AND SPIT AFTER USE Rx Instructions: INHALE 2 PUFFS BY MOUTH TWICE A DAY. RINSE AND SPIT AFTER USE finasteride 5 mg tablet See Rx Instructions .ROUTE .COMPLEX Qty: 30 9RF Dose Instruction: TAKE 1 TABLET BY MOUTH EVERY DAY Rx Instructions: TAKE 1 TABLET BY MOUTH EVERY DAY ipratropium-albuterol 0.5 mg-3 mg(2.5 mg base)/3 mL solution for nebulization See Rx Instructions .ROUTE .COMPLEX Qty: 360 3RF Dose Instruction: INHALE 3 ML VIA NEBULIZER FOUR TIMES DAILY NEEDED FOR SHORTNESS OF BREATH OR WHEEZING Rx Instructions: INHALE 3 ML VIA NEBULIZER FOUR TIMES DAILY NEEDED FOR SHORTNESS OF BREATH OR WHEEZING albuterol sulfate 90 mcg/actuation HFA aerosol inhaler See Rx Instructions .ROUTE .COMPLEX Qty: 8.5 3RF Dose Instruction: INHALE 1-2 PUFF(S) BY MOUTH EVERY 4 - 6 HOURS NEEDED FOR SHORTNESS OF BREATH OR WHEEZING Rx Instructions: INHALE 1-2 PUFF(S) BY MOUTH EVERY 4 - 6 HOURS NEEDED FOR SHORTNESS OF BREATH OR WHEEZING <Ludivina Johnson PA-C - Last Filed: 10/29/25 13:04> Follow-up/Referrals: Matthew Mccabe MD [Primary Care Provider, Family Practice] <Ludivina Johnson PA-C - Last Filed: 10/29/25 13:04> Stand Alone Forms: Work/School Release IP <Ludivina Johnson PA-C - Last Filed: 10/29/25 13:04> Time of Disposition: 16:55 <Ludivina Johnson PA-C - Last Filed: 10/29/25 13:04> 16:55 <Malu Downing MD - Last Filed: 10/30/25 20:24>
[2025-10-29 13:23] LABS: Hematocrit 34.8 % (42.0-52.0); Hemoglobin 11.4 g/dL (14.0-18.0); Immature Granulocyte Percent A 0.3 % (0-0.5); Lymphocytes Absolute Auto 0.87 K/mm3 (0.9-3.2); Mean Corpuscular HGB Conc 32.8 g/dl (32-36); Mean Corpuscular Hemoglobin 27.5 pg (26-34); Mean Corpuscular Volume 83.9 fl (80-100); Nucleated Red Blood Cells Absolute Auto 0.000 K/mm3 (0.0-0.012); Nucleated Red Blood Cells Perc 0.0 % (0.0-0.2); Platelet Count Result 167 k/mm3 (150-375); Red Blood Count 4.15 M/mm3 (4.6-6.20); White Blood Count 7.3 K/mm3 (4.5-10.0)
--- OUTSIDE RECORDS SUMMARY | 2025-10-29 13:30 | XMS_ITS ---
Author Organization [facility] Address [address] [place] [address] Care Team Providers Care Broadcast Transmitter Operator Name Role Phone Matthew Mccabe MD Primary Care Prov ider Stan Meza MD Unavailable [phone] Natalie Baum NP Unavailable [phone] Active Problems Problem Noted Date Diagnosed [...] MD Stan 4 of 6 cycles started [id number] [facility] - Phase 1 - VAISHALI-PEG 20 / Docetaxel / Gemcitabine 5 07/03/2025 DOCEtaxel (TAXOTERE)gemcita bine (GEMZAR)[facility] VAISHALI-PEG 20 ( [id number]) Patient Preference Karin Zaman, HARNESS PULLER 1 of 6 cycles started Pembrolizumab / [...]
--- OUTSIDE RECORDS SUMMARY | 2025-10-29 13:30 | XMS_ITS | Clinical Summary ---
Author Organization [facility] Address [address] [place] [address] Care Team Providers Care Engine Dynamometer Tester Name Role Phone Katina Casiano DO Unavailable [phone] Tracey Ang PA Unavailable Unavailable Natalie Baum Primary Care Provider [phone] Source Comments [facility],non-owned Affiliates and Associated Physician Practices is amultiple site organization consisting of ambulatory clinics and hospital sitesin [place], [place], [place] and [place]. This disclosure is being madepursuant to the Care Everywhere program and may not contain all information available regarding this patient. Last updated 18.[facility] Allergies Active Allergy Reactions Criticality Noted Date [...] MG/3ML) 0.083% nebulizer solutionIndicati ons:Centrilobula r emphysema (HCC),Asthma-ADVANCED MANUFACTURING ASSOCIATE D overlap syndrome (HCC) Inhale 2.5 (two [...] Active Symbicort 160-4.5 MCG/ACT inhalerIndicatio ns:Centrilobular emphysema (HCC),Asthma-ADVANCED MANUFACTURING ASSOCIATE D overlap syndrome (HCC) Inhale 2 (two) puffs by mouth once daily 10.2 g 3 3 Active albuterol HFA (Proventil; Ventolin; Proair) 108 (90 Base) MCG/ACT inhalerIndicatio ns:Centrilobular emphysema (HCC),Asthma-ADVANCED MANUFACTURING ASSOCIATE D overlap syndrome (HCC) Inhale 2 (two) [...] 01/04/2023 Assessment & Plan (01/04/2023 2:27 PM COMPOSITION FLOOR LAYER): - sleep study pending Fatigue 01/04/2023 Assessment & Plan (01/04/2023 2:28 PM COMPOSITION FLOOR LAYER): - Check TSH - pending sleep study [...] 07/29/2022 Assessment & Plan (01/04/2023 2:26 PM COMPOSITION FLOOR LAYER): - Due for TDap, Zoster, Covid outside [...] 07/29/2022 Assessment & Plan (01/04/2023 2:19 PM COMPOSITION FLOOR LAYER): - Will try to resend Eplerenone, previously [...] 01/05/2022 Assessment & Plan (01/04/2023 2:26 PM COMPOSITION FLOOR LAYER): - Likely sleep-related, obesity, SHAYNE - Cont. PPI Sleep choking syndrome 01/05/2022 PND (paroxysmal nocturnal dyspnea) 01/05/2022 Bipolar affective disorder 12/24/2021 Back pain 12/24/2021 Family history of other specified conditions Asthma-COPD overlap syndrome 11/11/2021 Assessment & Plan (01/04/2023 2:18 PM COMPOSITION FLOOR LAYER): - Tob cessation Chronic midline low back pain without sciatica 0 11/09/2021 Lumbosacral disc disease 11/09/2021 Foraminal stenosis of lumbar region 11/09/2021 Heart failure with reduced ejection fraction 09/2021 Assessment & Plan (05/30/2023 3:04 PM CDT): HF with EF recovered to normal. Continue current treatment. Assessment & Plan (01/04/2023 2:16 PM COMPOSITION FLOOR LAYER): - See HTN above - Pt not [...] 07/11/2019 Assessment & Plan (01/04/2023 2:15 PM COMPOSITION FLOOR LAYER): - Stable, despite holding spirono due to [...] 11/06/2017 Assessment & Plan (01/04/2023 2:13 PM COMPOSITION FLOOR LAYER): - Encouraged cessation, ready to quit - [...] [facility] - [facility] [address] [facility] [address] [place] [address] Kyra Lawrence, RUSS-COBOL DEVELOPER Refill Request from Last 3 Months Immunizations [...] on file 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 COMPOSITION FLOOR LAYER Gender Identity Not on file Sexual Orientation [...] ENDOSCOPY, COLON, SCREENING Routine 12/07/2022 10:04 AM COMPOSITION FLOOR LAYER COMPREHENSIVE METABOLIC PANEL Routine 08/09/2022 1:47 PM CDT Weight loss HEPATITIS C AB W/RFLX TO HCV RNA QN PCR 09/19/2019 9:17 AM COMPOSITION FLOOR LAYER from Last 3 Months or Most Recently Relevant to Health Maintenance Results * ENDOSCOPY, COLON, SCREENING (12/07/2022 10:04 AM COMPOSITION FLOOR LAYER) Report Endoscopy POC Endoscopy Department Report _ [...] entire procedure. Procedure Code(s): --- Professional --- 00302, Colonoscopy, flexible; with removal of tumor(s), polyp(s), or other lesion(s) by snare technique Diagnosis Code(s): --- Professional --- Z86.010, Personal history of colonic polyps K63.5, Polyp of colon Z80.0, Family history of malignant neoplasm of digestive organs CPT copyright 2019 [employer]. All rights reserved. The codes documented in this report are preliminary and upon portfolio specialist review may be revised to meet current compliance requirements. Tal Mccormick, 12/07/2022 10:49:20 AM Note Initiated On: 12/07/2022 10:04 AM Number of Addenda: [address] PROVATION 12/07/2022 10:0 4 AM COMPOSITION FLOOR LAYER [facility] Tal Mccormick MD GI PROCEDURE O RDERABLES Edited Result - Final [facility] PROVATION * (ABNORMAL) COMPREHENSIVE METABOLIC [...] 46 U/L [facility] Comment: Test Performed at: [facility] [address] [place] [address] PRUDENCIO ALDANA DO,MPH Blood BLOOD SPECIMEN / Unknown 08/09/2022 1:47 PM CDT 08/09/2022 1:50 PM CDT Ian Pollock MD LAB - CHEMISTRY ORDERABLES Fin al Result [facility] [id number] [place] [address] * HEPATITIS C AB W/RFLX TO HCV RNA QN PCR (09/19/2019 9:17 AM COMPOSITION FLOOR LAYER) Hepatitis C Antibody NON-REACTI VE NON-REACT FELY [facility] Signal to Cut-Off 0.03 <1.00 [facility] Comment: HCV antibody was non-reactive. There is no laboratory evidence of HCV infection. In most cases, no further action is required. However, if recent HCV exposure is suspected, a test for HCV RNA (test code 85507) is suggested. For additional information please refer to http://education.[facility]/faq/XIO51j3 (This link is being provided for informational/ educational purposes only.) Test Performed at: [facility] [address] [place] [address] PRUDENCIO ALDANA DO,MPH 09/19/2019 9:17 AM COMPOSITION FLOOR LAYER 09/19/2019 9:21 AM COMPOSITION FLOOR LAYER Monica Tellez INSPECTOR MACHINE CUT GLASS-COBOL DEVELOPER LAB - CHEMISTRY ORD ERABLES Final Result [facility] [id number] [place] [address] from Last 3 Months or Most Recently Relevant to Health Maintenance Insurance [facility] Advance Directives Documents on File Type Date Recorded Patient Bulldozer Operator Expl anation Adv Directive/Living Will/POA 11/05/2015 12:22 PM * Full Code (Latest Code Status on File) Date Activated Date Inactivated Comments 11/01/2015 9:11 PM 11/05/2015 6:02 AM Care Teams Engine Dynamometer Tester Relationship Specialty Start Date End Date Natalie Baum [address] [place] [address] PCP - General 05/06/24 Katina Casiano DO [address] OF [facility] [place], [place] Hospitalist 06/05/23 Tracey Ang PA [address] [facility] OF [facility] [place], [place] Physician General Production Worker 08/15/23
--- OUTSIDE RECORDS SUMMARY | 2025-10-29 13:30 | XMS_ITS | Clinical Summary ---
Author Organization [facility] Address [address], [facility] [address] [place] [address] Phone Care Team Providers Care Channel Opener Name Role Phone Patito Randalli Israel CLIENT OPERATIONS MANAGER, BINGO WORKER Unavailable Allergies Active Allergy Reactions Criticality Noted [...] Comments Blood Pressure 142/74 11/06/2017 2:41 PM UPPER EXTREMITY SURGEON Pulse 77 11/06/2017 2:41 PM UPPER EXTREMITY SURGEON Temperature 36.1 C (97 F) 11/06/2017 2:41 PM UPPER EXTREMITY SURGEON Respiratory Rate 18 11/06/2017 2:41 PM UPPER EXTREMITY SURGEON Oxygen Saturation 99% 11/06/2017 8:00 AM UPPER EXTREMITY SURGEON Inhaled Oxygen Concentration - - Weight 113.4 kg (250 lb) 11/03/2017 6:25 PM UPPER EXTREMITY SURGEON Height 175.3 cm (5' 9) 11/03/2017 6:25 PM UPPER EXTREMITY SURGEON Body Mass Index 36.92 11/03/2017 6:25 PM UPPER EXTREMITY SURGEON Plan of Treatment Health Maintenance Due Date [...] CHEST W/O CONTRAST STAT 11/03/2017 11:30 PM UPPER EXTREMITY SURGEON from Last 3 Months or Most Recently Relevant to Health Maintenance Results * CT CHEST W/O CONTRAST (11/03/2017 11:30 PM UPPER EXTREMITY SURGEON) Anatomical Region Laterality Modality Chest N/A Computed Tomogra phy 11/04/2017 12:2 4 AM UPPER EXTREMITY SURGEON Impressions 11/04/2017 12:28 AM UPPER EXTREMITY SURGEON IMPRESSION: 1. A few nonspecific scattered ground-glass infiltrates in the bilateral upper lobes, which may represent pneumonia. 2. Mild paraseptal emphysema. Automated exposure control was used as a dose optimization technique for this examination. Narrative 11/04/2017 12:28 AM UPPER EXTREMITY SURGEON EXAMINATION: CT chest without contrast HISTORY: Cough, [...] Maintenance Insurance [address] [place] [id number] Advance Directives * Full Code (Latest Code Status on File) Date Activated Date Inactivated Comments 11/04/2017 9:36 AM 11/06/2017 6:27 PM CPR-Full Treat ment: FULL ARREST: Attempt Resuscitation/CPR wit intubation and mechanical ventilation. PRE-ARREST: Use entire range of life support measures to stabilize the patient. Care Teams Channel Opener Relationship Specialty Start Date End Date Montserrat Randall, CLIENT OPERATIONS MANAGER, BINGO WORKER Nurse Practitioner Advanced Practice Nurse 10/21/16
--- OUTSIDE RECORDS SUMMARY | 2025-10-29 13:30 | XMS_ITS | Encounter Summary ---
Author Organization [facility] Address [address] [facility] [place] [address] Care Team Providers Care Inclusion Paraeducator Name Role Phone Ian Pollock MD Primary Care Provider [phone] Katina Casiano DO Unavailable [phone] Xavi ACOSTA MD, Fred R Primary Care Provider + Katina Casiano DO Unavailable [phone] Tracey Ang Unavailable Unavailable Belkis Angel BEAD FORMING MACHINE SET UP OPERATOR-LUNCHROOM ATTENDANT Primary Care Provider + Natalie Baum Primary Care Provider [phone] Reason for Visit * Reason Onset Date Comments Cardiac Rehab 02/23/2022 Encounter Details Date Type Department Care Team (Late st Contact Info) Description 02/23/2022 Telephone [facility] [address] [place] [address] Rama Lagos quantitative analyst Social History Tobacco Use Types Packs/Day Years [...] on file 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 Gender Identity Not on file Sexual [...] on filedocumented in this encounter Care Teams Inclusion Paraeducator Relationship Specialty Start Date End Date Ian Pollock MD [address] DIV OF [facility] [place] [address] PCP - General 08/21/20 05/29/23 Jameel Hurley III, MD [address] OF [facility] [place] [address] PCP - General Internal Medicine 06/05/23 08/28/23 Belkis Angel APRN-LUNCHROOM ATTENDANT [address] [facility] [address] [place] [address] PCP - General Nurse Practitioner 08/29/23 05/05/24 Natalie Baum [address] [place] [address] PCP - General 05/06/24 Katina Casiano DO [address] [facility] [place], [place] Resident - PCP Internal Medicine 08/10/22 05/29/23 Katina Casiano DO [address] [facility] [place], [place] Hospitalist 06/05/23 Tracey Ang PA [address] [facility] [place] [address] Physician Movers 08/15/23 documented as of this encounter
--- OUTSIDE RECORDS SUMMARY | 2025-10-29 13:30 | XMS_ITS | Encounter Summary ---
Author Organization [facility] Address [facility] [place] [address] Care Team Providers Care Carpet Mechanic Name Role Phone Amilcar Osorio MD Primary Care Provider [phone] Monica Tellez NP Primary Care Provider [phone] Natalie Baum LINING CUTTER Primary Care Provider + [phone] Encounter Details Date Type Department Care Team (Late st Contact Info) Description 04/09/2018 Hosp Visit [facility] Outpatient Therapy [address] [facility] [address] [place], [place] [address] Grecia Hess, [place] [address] Social History Tobacco Use Types Packs/Day Years [...] on filedocumented in this encounter Care Teams Carpet Mechanic Relationship Specialty Start Date End Date Amilcar Osorio MD [address], [address] [address] PCP - General 05/01/17 09/04/19 Monica Tellez LINING CUTTER [address] [address] PCP - General NURSE PRACTITIONER 09/05/19 01/18/25 Natalie Baum NP [address] [place] [address] PCP - General FAMILY PRACTICE 01/19/25 documented as of this encounter
--- OUTSIDE RECORDS SUMMARY | 2025-10-29 13:30 | XMS_ITS | Encounter Summary ---
Author Organization [facility] Address [address] [facility] [place] [address] Care Team Providers Care Template Maker Name Role Phone Monica Tellez MANAGER MEDICAL WRITING-VOLUNTEER FIRE FIGHTER Primary Care Provi cristobal Ian Pollock MD Primary Care Provider [phone] Ian Pollock MD Primary Care Provider [phone] Ian Pollock MD Primary Care Provider [phone] Ian Pollock MD Primary Care Provider [phone] Ian Pollock MD Primary Care Provider [phone] Katina Casiano DO Unavailable [phone] Xavi ACOSTA MD, Fred R Primary Care Provider + Katina Casiano DO Unavailable [phone] Tracey Ang Unavailable Unavailable Belkis Angel MANAGER MEDICAL WRITING-VOLUNTEER FIRE FIGHTER Primary Care Provider + Natalie Baum Primary Care Provider [phone] Reason for Visit * Reason Onset Date Comments Forms/questionnaires 07/12/2019 [facility] Encounter Details Date Type Department Care Team (Late st Contact Info) Description 07/12/2019 Telephone [facility] Internal Medicine [address] [address] Monica Tellez MANAGER MEDICAL WRITING-VOLUNTEER FIRE FIGHTER [address] [place] [address] Forms/questionnaires ([facility]icare transportation) Social History Tobacco Use [...] on file 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 Please advise. [phone] * Telephone Encounter - Shari Silvestre RN - 07/12/2019 1:11 PM CDT [facility] transportation form on your shelf. * Telephone Encounter - Hawa Allen - 07/12/2019 9:34 AM CDT Pt calling in to inform office that paperwork is on it's way from [place] concerning Medicare rides so pt can get transportation to and from [facility] appts. CB# [phone] Routed to [facility] Nurse Communication for further review documented in this encounter Plan of Treatment Not on file documented as of this encounter Visit Diagnoses Not on filedocumented in this encounter Care Teams Template Maker Relationship Specialty Start Date End Date Monica Tellez APRN-VOLUNTEER FIRE FIGHTER PCP - General 07/03/19 11/13/19 Ian Pollock MD PCP - General 11/14/19 12/12/19 Ian Pollock MD PCP - General 12/13/19 05/25/20 Ian Pollock MD PCP - General 05/26/20 06/15/20 Ian Pollock MD [address] [facility] OF [facility] [place] [address] PCP - General 07/31/20 08/20/20 Ian Pollock MD [address] [facility] [place] [address] PCP - General 08/21/20 05/29/23 Jameel Hurley III, MD [address] [place] [address] PCP - General Internal Medicine 06/05/23 08/28/23 Belkis Angel, MANAGER MEDICAL WRITING-VOLUNTEER FIRE FIGHTER [address] [place] [phone] PCP - General Nurse Practitioner 08/29/23 05/05/24 Natalie Baum [address] [place] [address] PCP - General 05/06/24 Katina Casiano DO [address] [facility] [place], [place] Resident - PCP Internal Medicine 08/10/22 05/29/23 Katina Casiano DO [address] [facility] [place], [place] Hospitalist 06/05/23 Tracey Ang PA [address] [facility] [place] [address] Physician Cabinet Abrasive Sandblaster 08/15/23 documented as of this encounter
--- OUTSIDE RECORDS SUMMARY | 2025-10-29 13:30 | XMS_ITS | Encounter Summary ---
Author Organization [facility] Address [address] [facility] [place] [address] Care Team Providers Care Equipment Planner Name Role Phone Ian Pollock MD Primary Care Provider Katina Casiano DO Unavailable [phone] Xavi ACOSTA MD, Jameel Gaviria Primary Care Provider + Katina Casiano DO Unavailable [phone] Tracey Ang PA Unavailable Unavailable Belkis Angel BUSINESS PROCESS MODELER-HUMAN RESOURCES OPERATIONS DIRECTOR Primary Care Provider + Natalie Baum Primary Care Provider [phone] Encounter Details Date Type Department Care Team (Late st Contact Info) Description 04/22/2021 Telephone [facility] [address] [place] [address] Kezia Hollis MD [address] OF PULMONARY/[place] [address] Social History Tobacco Use Types Packs/Day Years Used Date Smoking Tobacco: Every Day Cigarettes 1 30 Smokeless Tobacco: Never Alcohol Use Standard Drinks/Week Comments Yes 6 (1 standard drink = 0.6 oz pure alcohol) beer madi. 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 Hollis? Call Back #: [phone] documented in this encounter Plan of Treatment [...] filedocumented in this encounter Care Teams Equipment Planner Relationship Specialty Start Date End Date Ian Pollock MD [address] DIV OF [facility] [place] [address] PCP - General 08/21/20 05/29/23 Jameel Hurley III, MD [address] DIV OF [facility] [place] [address] PCP - General Internal Medicine 06/05/23 08/28/23 Belkis Angel APRN-HUMAN RESOURCES OPERATIONS DIRECTOR [address] [place] [phone] PCP - General Nurse Practitioner 08/29/23 05/05/24 Natalie Baum [address] [place] [address] PCP - General 05/06/24 Katina Casiano DO [address] [facility] INTER[facility] [place], [place] Resident - PCP Internal Medicine 08/10/22 05/29/23 Katina Casiano DO [address] [facility] [place], [place] Hospitalist 06/05/23 Tracey Ang PA [address] [facility] OF [facility] [place] [address] Physician Putty And Patch Worker 08/15/23 documented as of this encounter
--- OUTSIDE RECORDS SUMMARY | 2025-10-29 13:30 | XMS_ITS | Encounter Summary ---
Author Organization [facility] Address [facility] [place] [address] Care Team Providers Care Outboard System Operator Name Role Phone Amilcar Osorio MD Primary Care Provider [phone] Monica Tellez NP Primary Care Provider [phone] Natalie Baum SHADE MATCHER Primary Care Provider [phone] Encounter Details Date Type Department Care Team (Late st Contact Info) Description 04/16/[address] [facility] Outpatient Therapy [address] [facility] [address] [place], [place] [address] Grecia Hess, [place] [address] Social History Tobacco Use Types Packs/Day Years [...] on filedocumented in this encounter Care Teams Outboard System Operator Relationship Specialty Start Date End Date Amilcar Osorio MD [address], [address] [address] PCP - General 05/01/17 09/04/19 Monica Tellez SHADE MATCHER [address] [address] PCP - General NURSE PRACTITIONER 09/05/19 01/18/25 Natalie Baum NP [address] [place] [address] PCP - General FAMILY PRACTICE 01/19/25 documented as of this encounter
--- OUTSIDE RECORDS SUMMARY | 2025-10-29 13:30 | XMS_ITS | Encounter Summary ---
Author Organization [facility] Address [address] [place] [address] Care Team Providers Care Medical Supply Technician Name Role Phone Ian Pollock MD Primary Care Provider [phone] Ian Pollock MD Primary Care Provider [phone] Ian Pollock MD Primary Care Provider [phone] Ian Pollock MD Primary Care Provider [phone] Ian Pollock MD Primary Care Provider [phone] Katina Casiano DO Unavailable [phone] Xavi ACOSTA MD, Jameel R Primary Care Provider + Katina Casiano DO Unavailable [phone] Tracey Ang Unavailable Unavailable Belkis Angel GLOVE PAIRER-ASP NET MVC DEVELOPER Primary Care Provider + Natalie Baum Primary Care Provider [phone] Reason for Visit * Reason Onset Date Comments General 12/02/2019 Encounter Details Date Type Department Care Team (Late st Contact Info) Description 12/02/2019 Telephone [facility] General Internal Medicine [address] [phone] Ian Pollock MD 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 CB# [phone] Routed to provider for further review MASTER documented in this encounter Plan of Treatment [...] filedocumented in this encounter Care Teams Medical Supply Technician Relationship Specialty Start Date End Date Ian Pollock MD PCP - General 11/14/19 12/12/19 Ian Pollock MD PCP - General 12/13/19 05/25/20 Ian Pollock MD PCP - General 05/26/20 06/15/20 Ian Pollock MD [address] [facility] [place] [address] PCP - General 07/31/20 08/20/20 Ian Pollock MD [address] [facility] [place] [address] PCP - General 08/21/20 05/29/23 Jameel Hurley III, MD [address] [facility] [place] [address] PCP - General Internal Medicine 06/05/23 08/28/23 Belkis Angel, GLOVE PAIRER-ASP NET MVC DEVELOPER [address] [facility] [address] [place] [address] PCP - General Nurse Practitioner 08/29/23 05/05/24 Natalie Baum [address] [place] [address] PCP - General 05/06/24 Katina Casiano DO [address] [facility] [place], [place] Resident - PCP Internal Medicine 08/10/22 05/29/23 Katina Casiano DO [address] [facility] [place] [place] Hospitalist 06/05/23 Tracey Ang PA [address] [facility] [place] [address] Physician Flight Surveyor 08/15/23 documented as of this encounter
--- OUTSIDE RECORDS SUMMARY | 2025-10-29 13:30 | XMS_ITS | Encounter Summary ---
Author Organization [facility] Healthcare Address [address] [place] [address] Care Team Providers Care Magnetic Testing Technician Name Role Phone Matthew Mccabe MD Primary Care Prov ider Stan Meza MD Unavailable [phone] Natalie Baum NP Unavailable [phone] Encounter Details Date Type Department Care Team (Late st Contact Info) Description 08/20/[address] [facility] Nutrition Counseling [address] [place] [address] Social History Tobacco Use [...] on file Legal Sex Male 6:04 PM PRINCIPAL SYSTEMS ENGINEER Gender Identity Not on file Sexual Orientation Not on file documented as of this encounter Plan of Treatment Not on file documented as of this encounter Visit Diagnoses Not on filedocumented in this encounter Additional Health Concerns Infection Onset Date Last Indicated Resolved Time COVID: Suspected 08/29/2024 08/29/2024 08/29/2024 1:59 PM CDT documented as of this encounter Care Teams Magnetic Testing Technician Relationship Specialty Start Date End Date Matthew Mccabe MD PCP - General Family Medicine 05/13/24 Stan Meza MD Medical Oncologist/Oven Stripper Medical Oncology 06/28/24 Natalie Baum NP [address] [place] [address] Nurse Practitioner Family Practice 03/26/25 documented as of this encounter
--- OUTSIDE RECORDS SUMMARY | 2025-10-29 13:30 | XMS_ITS | Clinical Summary ---
Author Organization [facility] Address [address] [place] [address] Care Team Providers Care Screen Print Operator Name Role Phone Matthew Mccabe MD Primary Care Prov ider Stan Meza MD Unavailable [phone] Natalie Baum NP Unavailable [phone] Allergies Active Allergy Reactions Criticality Noted [...] tablet Take 1 tablet by mouth benefits assistant before breakfast 30 tablet 3 024 Active [...] Type Department Care Team Description 10/28/2025 Documentation [facility] [address] [place] [phone] Sarah Brunner LCSW 10/28/2025 Telephone [facility] [address] [place] [phone] Janice Kilgore CMA 10/28/2025 Orders Only [facility] [address] [place] [phone] Sasha Hernandes, RN Metastasis to bone (Primary Dx); Primary cancer of left lower lobe of lung (HCC); Prophylaxis for chemotherapy-induce d neutropenia 10/27/2025 Telephone [facility] [address] [place] [phone] Sasha Hernandes RN 10/15/2025 Telephone [facility] [address] [place] [phone] Sasha Hernandes RN 10/09/2025 10:30 AM PHARMACOVIGILANCE SAFETY EXPERT Infusion [facility] - Infusion [address] [place] [address] 5 [place] [address] Primary cancer of left lower lobe of lung (HCC) (Primary Dx) 10/09/2025 9:40 AM PHARMACOVIGILANCE SAFETY EXPERT Office Visit [facility] [address] [place] [phone] Stan Meza MD Primary cancer of left lower lobe of lung (HCC) (Primary Dx); Metastasis to bone; Prophylaxis for chemotherapy-induce d neutropenia 10/09/2025 9:00 AM PHARMACOVIGILANCE SAFETY EXPERT - 10/09/2025 11:59 PM PHARMACOVIGILANCE SAFETY EXPERT Hospital Encounter [facility] [address] [place] [phone] Stan Meza MD Metastasis to bone; Primary cancer of left lower lobe of lung (HCC) Discharge Disposition: Discharge to home or self care 10/09/2025 8:45 AM PHARMACOVIGILANCE SAFETY EXPERT Clinical Support [facility] - Lab Collection [address] [place] [address] 5 [place] [address] Metastasis to bone; Primary cancer of left lower lobe of lung (HCC) 10/09/2025 Documentation [facility] Counseling [address] [place] [address] Dagmar Pickard, LARRY 10/06/2025 Social Work [facility] [address] [place] [phone] Sarah Brunner, [employer] 10/06/2025 Telephone [facility] [address] [place] [phone] Sasha Hernandes RN 10/02/2025 Documentation [facility] [address] [place] [phone] aSrah Brunner, [employer] 09/30/2025 Social Work [facility] [address] [place] [phone] Sarah Brunner, [employer] 09/30/2025 Telephone [facility] [address] [place] [phone] Maddy Freire RN 09/23/2025 Telephone [facility] [address] [place] [phone] Janice Kilgore CMA 09/22/2025 Telephone [facility] [address] [place] [phone] Sasha Hernandes RN 09/18/2025 11:00 AM PHARMACOVIGILANCE SAFETY EXPERT Infusion [facility] [address] [place] [address] 5 [place] [address] Prophylaxis for chemotherapy-induce d neutropenia (Primary Dx); Metastasis to bone; Primary cancer of left lower lobe of lung (HCC) 09/18/2025 9:00 AM PHARMACOVIGILANCE SAFETY EXPERT Office Visit [facility] Medicine Oncology [address] [place] [phone] Shari Quintana, LE Metastasis to bone (Primary Dx); Primary cancer of left lower lobe of lung (HCC); Prophylaxis for chemotherapy-induce d neutropenia; Nicotine dependence with current use 09/18/2025 8:00 AM PHARMACOVIGILANCE SAFETY EXPERT Clinical Support [facility] - [facility] Collection [address] [place] [address] Floor 5 [place] [address] Metastasis to bone; Primary cancer of left lower lobe of lung (HCC); Prophylaxis for chemotherapy-induce d neutropenia 09/18/2025 Documentation [facility]ing [address] [place] [phone] Dagmar Pickard, LARRY 09/15/2025 8:44 AM PHARMACOVIGILANCE SAFETY EXPERT - 09/15/2025 11:59 PM PHARMACOVIGILANCE SAFETY EXPERT Hospital Encounter [facility] [address] [place] [phone] Primary cancer of left lower lobe of lung (HCC) Discharge Disposition: Discharge to home or self care 09/11/2025 Social Work [facility] Medicine Oncology [address] [place] [phone] Sarah Brunner, LAURIE 09/10/2025 Telephone [facility] Radiology [address] [place] [phone] Tg Millan RN 09/09/2025 Social Work [facility] Medicine Oncology [address] [place] [phone] Sarah Brunner, LAURIE 08/28/2025 11:30 AM CDT Infusion [facility] - Infusion [address] [place] [address] Floor 5 [place] [address] Prophylaxis for chemotherapy-induce d neutropenia (Primary Dx); Metastasis to bone; Primary cancer of left lower lobe of lung (HCC) 08/28/2025 9:40 AM CDT Office Visit [facility] Medicine Oncology [address] [place] [phone] Stan Meza MD Primary cancer of left lower lobe of lung (HCC) (Primary Dx); Metastasis to bone; Prophylaxis for chemotherapy-induce d neutropenia 08/28/2025 8:45 AM CDT Clinical Support [facility] [place] - Lab Collection [address] [facility] Floor 5 [place] [address] Metastasis to bone; Primary cancer of left lower lobe of lung (HCC); Prophylaxis for chemotherapy-induce d neutropenia 08/28/2025 8:30 AM CDT Lab [facility] Medicine Oncology Lab [address] [facility] 5 [place] [address] Metastasis to bone; Primary cancer of left lower lobe of lung (HCC); Prophylaxis for chemotherapy-induce d neutropenia 08/28/2025 Documentation [facility] [address] [place] [phone] 08/25/2025 Documentation [facility] [address] [place] [address] [address] [place] [phone] Carolyn Mckenna LCSW 08/22/2025 Telephone [facility] [address] [place] [address] 5 [place] [address] Sasha Hernandes RN 08/21/2025 9:00 AM CDT Lab [facility] [address] [place] [address] Floor 5 [place] [address] Metastasis to bone; Primary cancer of left lower lobe of lung (HCC); Prophylaxis for chemotherapy-induce d neutropenia 08/21/2025 7:24 AM CDT - 08/21/2025 11:59 PM CDT Hospital Encounter [facility] [address] [place] [phone] Stan Meza MD Primary cancer of left lower lobe of lung (HCC) Discharge Disposition: Discharge to home or self care 08/18/2025 Documentation [facility] [address] [place] [address] [address] [place] [phone] Carolyn Mckenna [employer] 08/01/2025 9:00 AM CDT Infusion [facility] - Infusion [address] [facility] Floor 5 [place] [address] Metastasis to bone (Primary Dx); Primary cancer of left lower lobe of lung (HCC); Prophylaxis for chemotherapy-induce d neutropenia 08/01/2025 Orders Only [facility] Medicine Oncology [facility] 5 [place] [phone] Sasha Hernandes RN 08/01/2025 Telephone [facility] [address] [place] [phone] Sahsa Hernandes RN 08/01/2025 Social Work [facility] On[facility] Floor 1, [address] [place] [phone] Megan Parish LCSW 07/31/2025 12:30 PM CDT Infusion [facility] - Infusion [address] [facility] Floor 5 [place] [address] Primary cancer of left lower lobe of lung (HCC) (Primary Dx); Metastasis to bone; Prophylaxis for chemotherapy-induce d neutropenia 07/31/2025 11:20 AM CDT Office Visit [facility] Oncology [facility] [address] [place] [address] Shari Quintana, LE Primary cancer of left lower lobe of lung (HCC) (Primary Dx); Metastasis to bone; Prophylaxis for chemotherapy-induce d neutropenia 07/31/2025 10:30 AM CDT Lab [facility] [address] [place] [address] 5 [place] [address] Metastasis to bone; Primary cancer of left lower lobe of lung (HCC); Prophylaxis for chemotherapy-induce d neutropenia 07/31/2025 Documentation [facility] [address] [place] [phone] from Last 3 Months [...] vative Free, Intramuscular 08/23/2024 Influenza, Unspecified 08/13/2020,11/02/2015 [employer] SARS-CoV-2 Vaccination 01/17/2021 Pneumococcal Conjugate [...] on file Legal Sex Male 6:04 PM PHARMACOVIGILANCE SAFETY EXPERT Gender Identity Not on file Sexual Orientation Not on file Last Filed Vital Signs Vital Sign Reading Time Taken Comments Blood Pressure 116/81 10/09/2025 10:00 AM PHARMACOVIGILANCE SAFETY EXPERT Pulse 103 10/09/2025 10:00 AM PHARMACOVIGILANCE SAFETY EXPERT Temperature 36.4 C (97.5 F) 10/09/2025 10:00 AM PHARMACOVIGILANCE SAFETY EXPERT Respiratory Rate 18 10/09/2025 10:00 AM PHARMACOVIGILANCE SAFETY EXPERT Oxygen Saturation 100% 10/09/2025 10:00 AM PHARMACOVIGILANCE SAFETY EXPERT Inhaled Oxygen Concentration - - Weight 89.8 kg (198 lb) 10/09/2025 10:00 AM PHARMACOVIGILANCE SAFETY EXPERT Height 175.3 cm (5' 9) 09/15/2025 9:20 AM PHARMACOVIGILANCE SAFETY EXPERT Body Mass Index 29.24 09/15/2025 9:20 AM PHARMACOVIGILANCE SAFETY EXPERT Plan of Treatment Health Maintenance Due Date [...] history exists Medical Devices Implanted Type Area Delivery Architect Device Identifier Shelf Expiration Date Model / Serial / Lot Rigth Knee Replacement Right: Knee [employer] Xcela Power Port 8fr [id number] - [id number] Implanted:Qty: 1 on 09/15/2025 by Manjit Jeong MD at [facility] [employer] 01/26/2030 [id number] / / [id number] Procedures Procedure Name Priority Date/Time Associated Diagnosis Comments URINALYSIS AND REFLEX TO MICROSCOPIC AND CULTURE Routine 10/09/2025 11:12 AM PHARMACOVIGILANCE SAFETY EXPERT Primary cancer of left lower lobe of lung (HCC) [id number] Routine 10/09/2025 11:10 AM PHARMACOVIGILANCE SAFETY EXPERT Primary cancer of left lower lobe of lung (HCC) CT CHEST ABDOMEN PELVIS W CONTRAST Schedule Routine, Read Routine (OP Routine) 10/09/2025 9:47 AM PHARMACOVIGILANCE SAFETY EXPERT Metastasis to bone Primary cancer of left lower lobe of lung (HCC) EGFR STAT 10/09/2025 8:57 AM PHARMACOVIGILANCE SAFETY EXPERT Metastasis to bone Primary cancer of left lower lobe of lung (HCC) DIFFERENTIAL AUTO Routine 10/09/2025 8:5 7 AM PHARMACOVIGILANCE SAFETY EXPERT Metastasis to bone Primary cancer of left lower lobe of lung (HCC) CBC WITH AUTO DIFFERENTIAL Routine 10/09/2025 8:57 AM PHARMACOVIGILANCE SAFETY EXPERT Metastasis to bone Primary cancer of left lower lobe of lung (HCC) COMPREHENSIVE METABOLIC PANEL STAT 10/09/2025 8:57 AM PHARMACOVIGILANCE SAFETY EXPERT Metastasis to bone Primary cancer of left lower lobe of lung (HCC) EGFR STAT 09/18/2025 8:30 AM PHARMACOVIGILANCE SAFETY EXPERT Metastasis to bone Primary cancer of left lower lobe of lung (HCC) Prophylaxis for chemotherapy-induc ed neutropenia DIFFERENTIAL AUTO Routine 09/18/2025 8:3 0 AM PHARMACOVIGILANCE SAFETY EXPERT Metastasis to bone Primary cancer of left lower lobe of lung (HCC) Prophylaxis for chemotherapy-induc ed neutropenia CBC WITH AUTO DIFFERENTIAL Routine 09/18/2025 8:30 AM PHARMACOVIGILANCE SAFETY EXPERT Metastasis to bone Primary cancer of left lower lobe of lung (HCC) Prophylaxis for chemotherapy-induc ed neutropenia COMPREHENSIVE METABOLIC PANEL STAT 09/18/2025 8:30 AM PHARMACOVIGILANCE SAFETY EXPERT Metastasis to bone Primary cancer of left lower lobe of lung (HCC) Prophylaxis for chemotherapy-induc ed neutropenia PORT PLACEMENT CHEST >5 YEARS Schedule Routine, Read Routine (OP Routine) 09/15/2025 10:30 AM PHARMACOVIGILANCE SAFETY EXPERT Primary cancer of left lower lobe of [...] culture Urine, clean voided (10/09/2025 11:12 AM PHARMACOVIGILANCE SAFETY EXPERT) Color, ur Straw Yellow Clarity, ur Clear Clear [facility] Specific gravity, ur >1.042(A) 1.003 - 1.030 [facility] pH, urine 7.0 [facility] Comment: Interpretive Data U rine pH is affected by diet, medications, systemic acid-base disturbances, and renal tubular function. pH may affect urinary stone formation. For example, urine pH below 6.0 may help reduce the tendency for calcium phosphate stones and pH greater than 6.0 may reduce the tendency for uric acid stone formation. Source: [facility] Current Interpretive Data was last revised on 2017 Protein, ur ql Trace Negative [facility] Glucose, ur ql Negative Negative [facility] Ketones, ur Negative Negative [facility] Bilirubin, ur Negative Negative [facility] Blood, ur Negative Negative [facility] Urobilinogen, ur <2.0 <2.0 [facility] Nitrite, ur Negative Negative [facility] Leukocyte esterase, ur Negative [facility] UA reflex comment Reflex conditions for microscopic UA and culture not met. [facility] Urine, clean voided 10/09/2025 11:12 AM PHARMACOVIGILANCE SAFETY EXPERT 10/09/2025 12:58 PM PHARMACOVIGILANCE SAFETY EXPERT us Stan Meza MD LAB MICROBIOLOGY - GENERA L ORDERABLES Final Result [facility] Department [place] [address] * [id number] (10/09/2025 11:10 AM PHARMACOVIGILANCE SAFETY EXPERT) MSI-HIGH Not detected 10/17/2025 12:00 AM PHARMACOVIGILANCE SAFETY EXPERT [facility] TMB 9.49 mut/Mb 10/17/2025 12:00 AM PHARMACOVIGILANCE SAFETY EXPERT [facility] TUMOR FRACTION 6.7% 10/17/2025 12:00 AM PHARMACOVIGILANCE SAFETY EXPERT [facility] Blood specimen (specimen) Venous blood specimen / Unknown 10/09/2025 11:10 AM PHARMACOVIGILANCE SAFETY EXPERT 10/10/2025 4:01 PM PHARMACOVIGILANCE SAFETY EXPERT Narrative This result has genomic variants that were not included in this document. us Stan Meza MD LAB GENETIC TESTING Final Result [facility] [address] [place] [address], [facility] [phone] [facility] [address] [place] [address] * CT Chest Abdomen Pelvis W Contrast (10/09/2025 9:47 AM PHARMACOVIGILANCE SAFETY EXPERT) Anatomical Region Laterality Modality Body N/A Computed Tomogra phy 10/09/2025 10:0 3 AM PHARMACOVIGILANCE SAFETY EXPERT Impressions 10/09/2025 10:03 AM PHARMACOVIGILANCE SAFETY EXPERT Worsening metastatic disease with increase mediastinal and hilar lymphadenopathy. Increased size right lower lobe nodule. Slight increase in left adrenal metastasis. Electronically signed by: Angel Almanza M.D. Narrative 10/09/2025 10:03 AM PHARMACOVIGILANCE SAFETY EXPERT EXAMINATION: Computed tomography of the chest abdomen [...] R esult * eGFR (10/09/2025 8:57 AM PHARMACOVIGILANCE SAFETY EXPERT) eGFR >90 >=60 mL/min/1. 73 m2 Comment: [...] last reviewed 2021. Blood 10/09/2025 8:57 AM PHARMACOVIGILANCE SAFETY EXPERT 10/09/2025 9:01 AM PHARMACOVIGILANCE SAFETY EXPERT Stan Meza MD LAB BLOOD ORDERABLES Yolette banda Result [facility] Department [place] [address] * (ABNORMAL) Differential, auto (10/09/2025 8:57 AM PHARMACOVIGILANCE SAFETY EXPERT) Pathologist [facility] Neutrophil abs 2.98 1.50 - 6.50 K/cumm Comment:Testing performed by : [facility], [address] [place], [place] [id number] Lymphocyte abs 0.71(L) 0.80 - 3.30 K/cumm [facility] Comment:Testing performed by : [facility], [address] [place], [place] [id number] Monocyte abs 0.66 0.20 - 0.80 K/cumm [facility] Comment:Testing performed by : [facility], [address] [place], [place] [id number] Eosinophil abs 0.08 0.00 - 0.50 K/cumm [facility] Comment:Testing performed by : [facility], [address] [place], [place] [id number] Basophil abs 0.06 0.00 - 0.10 K/cumm [facility] Comment:Testing performed by : [facility], [address] [place], [place] [id number] Neutrophil pct 66.3 % [facility] Comment: Interpretive Data Percent cell count reference ranges are not reported, since discordance with absolute values may lead to misinterpretation of CBC data. Current Interpretive Data was last revised on 2018. Testing performed by: [facility], [address] [place] [address] Lymphocyte pct 15.9 % [facility] Comment: Interpretive Data Percent cell count reference ranges are not reported, since discordance with absolute values may lead to misinterpretation of CBC data. Current Interpretive Data was last revised on 2018. Testing performed by: [facility], [address] [place] [address] Monocyte pct 14.8 % [facility] Comment: Interpretive Data Percent cell count reference ranges are not reported, since discordance with absolute values may lead to misinterpretation of CBC data. Current Interpretive Data was last revised on 2018. Testing performed by: [facility], [address] [place] [address] Eosinophil pct 1.7 % [facility] Comment: Interpretive Data Percent cell count reference ranges are not reported, since discordance with absolute values may lead to misinterpretation of CBC data. Current Interpretive Data was last revised on 2018. Testing performed by: [facility], [address] [place] [phone] Basophil pct 1.4 % [facility] Comment: Interpretive Data Percent cell count reference ranges are not reported, since discordance with absolute values may lead to misinterpretation of CBC data. Current Interpretive Data was last revised on 2018. Testing performed by: [facility], [address] [place] [phone] Blood 10/09/2025 8:57 AM PHARMACOVIGILANCE SAFETY EXPERT 10/09/2025 8:57 AM PHARMACOVIGILANCE SAFETY EXPERT us Stan Meza MD LAB BLOOD ORDERABLES Yolette l Result Performing Organization Address City/State/[facility] Co de Phone Number [facility] Department [place] [address] * (ABNORMAL) CBC with auto differential (10/09/2025 8:57 AM PHARMACOVIGILANCE SAFETY EXPERT) WBC 4.49 3.80 - 9.90 K/cumm Comment:Testing performed by : [facility], [address] [place] [phone] Hgb 9.5(L) 13.0 - 17.5 g/dL [facility] Comment:Testing performed by : [facility], [address] [place] [phone] Hct 29.9(L) 38.9 - 50.3 % [facility] Comment:Testing performed by : [facility], [address] [place] [address] Plt 246 150 - 400 K/cumm [facility] Comment:Testing performed by : [facility], [address] [place] [phone] MPV 6.6(L) 6.8 - 10.4 fL [facility] Comment:Testing performed by : [facility], [address] [place], [place] [phone] RBC 3.44(L) 4.30 - 5.80 M/cumm [facility] Comment:Testing performed by : [facility], [address] [place], [place] [phone] MCV 87.0 81.3 - 96.4 fL [facility] Comment:Testing performed by : [facility], [address] [place], [place] [phone] MCH 27.7 27.1 - 33.3 pg [facility] Comment:Testing performed by : [facility], [address] [place], [place] [phone] MCHC 31.9(L) 32.3 - 35.7 g/dL [facility] Comment:Testing performed by : [facility], [address] [place] [address] RDW CV 17.4(H) 11.1 - 14.9 % [facility] Comment:Testing performed by : [facility], [address] [place] [address] NRBC abs 0.00 0.00 - 0.01 K/cumm [facility] Comment:Testing performed by : [facility], [address] [place], [place] [phone] Blood 10/09/2025 8:57 AM PHARMACOVIGILANCE SAFETY EXPERT 10/09/2025 8:57 AM PHARMACOVIGILANCE SAFETY EXPERT us Stan Meza MD LAB BLOOD ORDERABLES Yolette banda Result [facility] Department of Laboratories [place], [place] [id number] * (ABNORMAL) Comprehensive metabolic panel (10/09/2025 8:57 AM PHARMACOVIGILANCE SAFETY EXPERT) Sodium 133(L) 135 - 145 mmol/L Potassium, pl 4.0 3.3 - 4.9 mmol/L [facility] Chloride 100 97 - 110 mmol/L [facility] CO2 28 22 - 32 mmol/L [facility] Anion gap 5 2 - 15 mmol/L [facility] BUN 5(L) 6 - 25 mg/dL [facility] Creatinine 0.64(L) 0.80 - 1.30 mg/dL [facility] Glucose 98 70 - 199 mg/dL [facility] Comment: Interpretive Data Fasting glucose >/= 126 [...] 2022. Calcium 8.8 8.5 - 10.3 mg/dL [facility] Bilirubin, total 0.4 0.1 - 1.2 mg/dL [facility] Protein, pl 6.4(L) 6.5 - 8.5 g/dL [facility] Albumin 3.6 3.5 - 5.0 g/dL [facility] Alk phos 108 40 - 130 Units/L [facility] ALT 10 7 - 55 Units/L [facility] AST 16 10 - 50 Units/L [facility] Blood 10/09/2025 8:57 AM PHARMACOVIGILANCE SAFETY EXPERT 10/09/2025 9:01 AM PHARMACOVIGILANCE SAFETY EXPERT us Stan Meza MD LAB BLOOD ORDERABLES Yolette banda Result [facility] [place] [address] * eGFR (09/18/2025 8:30 AM PHARMACOVIGILANCE SAFETY EXPERT) eGFR >90 >=60 mL/min/1. 73 m2 Comment: [...] last reviewed 2021. Blood 09/18/2025 8:30 AM PHARMACOVIGILANCE SAFETY EXPERT 09/18/2025 8:35 AM PHARMACOVIGILANCE SAFETY EXPERT us Stan Meza MD LAB BLOOD ORDERABLES Yolette banda Result Performing Organization Address City/State/[facility] Co de Phone Number [facility] Department [place] [address] * (ABNORMAL) Differential, auto (09/18/2025 8:30 AM PHARMACOVIGILANCE SAFETY EXPERT) Neutrophil abs 2.61 1.50 - 6.50 K/cumm Comment:Testing performed by : [facility], [address] [place] [address] Lymphocyte abs 0.87 0.80 - 3.30 K/cumm [facility] Comment:Testing performed by : [facility], [address] [place], [place] [phone] Monocyte abs 0.86(H) 0.20 - 0.80 K/cumm [facility] Comment:Testing performed by : [facility], [address] [place], [place] [phone] Eosinophil abs 0.17 0.00 - 0.50 K/cumm [facility] Comment:Testing performed by : [facility], [address] [place], [place] [phone] Basophil abs 0.07 0.00 - 0.10 K/cumm [facility] Comment:Testing performed by : [facility], [address] [place] [phone] Neutrophil pct 57.0 % [facility] Comment: Interpretive Data Percent cell count reference ranges are not reported, since discordance with absolute values may lead to misinterpretation of CBC data. Current Interpretive Data was last revised on 2018. Testing performed by: [facility], [address] [place] [phone] Lymphocyte pct 19.1 % [facility] Comment: Interpretive Data Percent cell count reference ranges are not reported, since discordance with absolute values may lead to misinterpretation of CBC data. Current Interpretive Data was last revised on 2018. Testing performed by: [facility], [address] [place] [phone] Monocyte pct 18.8 % [facility] Comment: Interpretive Data Percent cell count reference ranges are not reported, since discordance with absolute values may lead to misinterpretation of CBC data. Current Interpretive Data was last revised on 2018. Testing performed by: [facility], [address] [place] [phone] Eosinophil pct 3.6 % [facility] Comment: Interpretive Data Percent cell count reference ranges are not reported, since discordance with absolute values may lead to misinterpretation of CBC data. Current Interpretive Data was last revised on 2018. Testing performed by: [facility], [address] [place] [phone] Basophil pct 1.5 % [facility] Comment: Interpretive Data Percent cell count reference ranges are not reported, since discordance with absolute values may lead to misinterpretation of CBC data. Current Interpretive Data was last revised on 2018. Testing performed by: [facility], [address] [place] [phone] Blood 09/18/2025 8:30 AM [employer]ARM[employer]IL[employer] SAFET[employer] EXPERT 09/18/2025 8:34 AM PHARMACOVIGILANCE SAFETY EXPERT us Stan Meza MD LAB BLOOD ORDERABLES Yolette veronika Result [facility] Department [place] [address] * (ABNORMAL) CBC with auto differential (09/18/2025 8:30 AM PHARMACOVIGILANCE SAFETY EXPERT) WBC 4.57 3.80 - 9.90 K/cumm Comment:Testing performed by : [facility], [address] [place] [address] Hgb 10.0(L) 13.0 - 17.5 g/dL [facility]END[facility] Comment:Testing performed by : [facility], [address] [place] [address] Hct 30.8(L) 38.9 - 50.3 % [facility] Comment:Testing performed by : [facility], [address] [place] [address] Plt 242 150 - 400 K/cumm [facility] Comment:Testing performed by : [facility], [address] [place] [address] MPV 6.8 6.8 - 10.4 fL [facility] Comment:Testing performed by : [facility], [address] [place] [address] RBC 3.66(L) 4.30 - 5.80 M/cumm [facility] Comment:Testing performed by : [facility], [address] [place] [address] MCV 84.0 81.3 - 96.4 fL [facility] Comment:Testing performed by : [facility], [address] [place] [address] MCH 27.3 27.1 - 33.3 pg [facility]END[facility] Comment:Testing performed by : [facility], [address] [place] [address] MCHC 32.5 32.3 - 35.7 g/dL [facility]END[facility] Comment:Testing performed by : [facility], [address] [place] [address] RDW CV 17.7(H) 11.1 - 14.9 % [facility] Comment:Testing performed by : [facility], [address] [place] [address] NRBC abs 0.00 0.00 - 0.01 K/cumm [facility] Comment:Testing performed by : [facility], [address] [place] [address] Blood 09/18/2025 8:30 AM PHARM[employer]IGILANCE SAFETY EXPERT 09/18/2025 8:34 AM PHARMACOVIGILANCE SAFETY EXPERT us Stan Meza MD LAB BLOOD ORDERABLES Yolette banda Result [facility] Department [place] [address] * (ABNORMAL) Comprehensive metabolic panel (09/18/2025 8:30 AM PHARMACOVIGILANCE SAFETY EXPERT) Sodium 135 135 - 145 mmol/L Potassium, pl 4.3 3.3 - 4.9 mmol/L [facility] Chloride 101 97 - 110 mmol/L [facility] CO2 27 22 - 32 mmol/L [facility] Anion gap 7 2 - 15 mmol/L [facility] BUN 6 6 - 25 mg/dL [facility] Creatinine 0.61(L) 0.80 - 1.30 mg/dL [facility] Glucose 102 70 - 199 mg/dL [facility] Comment: Interpretive Data Fasting glucose >/= 126 [...] 2022. Calcium 9.0 8.5 - 10.3 mg/dL [facility] Bilirubin, total 0.4 0.1 - 1.2 mg/dL [facility] Protein, pl 6.6 6.5 - 8.5 g/dL [facility] Albumin 3.8 3.5 - 5.0 g/dL [facility] Alk phos 106 40 - 130 Units/L [facility] ALT 10 7 - 55 Units/L [facility] AST 16 10 - 50 Units/L [facility] Blood 09/18/2025 8:30 AM PHARM[employer]ILANCE SAFETY EXPERT 09/18/2025 8:35 AM PHARMACOVIGILANCE SAFETY EXPERT us Stan Meza MD LAB BLOOD ORDERABLES Yolette l Result [facility] Department [place] [address] * IR Port Placement Chest > 5 Years (09/15/2025 10:30 AM PHARMACOVIGILANCE SAFETY EXPERT) Anatomical Region Laterality Modality Chest N/A Radio Fluoroscop y 09/15/2025 10:3 4 AM PHARMACOVIGILANCE SAFETY EXPERT Impressions 09/15/2025 10:34 AM PHARMACOVIGILANCE SAFETY EXPERT Successful chest wall port placement. PLAN: The catheter is ready for immediate use. Please note that a power injectable port was placed. When treatment is completed, removal can be scheduled by calling [facility] - [phone] [facility] - [phone] Electronically signed by: Lanie Philippe PA-C Narrative 09/15/2025 10:34 AM PHARMACOVIGILANCE SAFETY EXPERT EXAMINATION: PORT PLACEMENT USING ULTRASOUND GUIDANCE (STD [...] was obtained. Prior to beginning the procedure, [place] Protocol was used to confirm the patient's [...] was obtained. Prior to beginning the procedure, [place] Protocol was used to confirm the patient's [...] completed, removal can be scheduled by calling [facility] - [phone] [facility] - [phone] Electronically signed by: Lanie Philippe PA-C Stan [...] BLOOD ORDERABLES Yolette l Result [facility] Department [place] [address] * eGFR (08/28/2025 9:15 AM CDT) eGFR [...] BLOOD ORDERABLES Yolette banda Result [facility] Department of Laboratories [place] [id number] * (ABNORMAL) Differential, auto (08/28/2025 9:15 AM CDT) Neutrophil abs 1.79 1.50 - 6.50 K/cumm Comment:Testing performed by : [facility], [address] [place] [phone] Lymphocyte abs 1.10 0.80 - 3.30 K/cumm [facility] Comment:Testing performed by : [facility], [address] [place], [place] [phone] Monocyte abs 0.75 0.20 - 0.80 K/cumm [facility] Comment:Testing performed by : [facility], [address] [place] [phone] Eosinophil abs 0.82(H) 0.00 - 0.50 K/cumm [facility] Comment:Testing performed by : [facility], [address] [place] [phone] Basophil abs 0.06 0.00 - 0.10 K/cumm [facility] Comment:Testing performed by : [facility], [address] [place] [phone] Neutrophil pct 39.6 % [facility] Comment: Interpretive Data Percent cell count reference ranges are not reported, since discordance with absolute values may lead to misinterpretation of CBC data. Current Interpretive Data was last revised on 2018. Testing performed by: [facility], [address] [place] [phone] Lymphocyte pct 24.4 % [facility] Comment: Interpretive Data Percent cell count reference ranges are not reported, since discordance with absolute values may lead to misinterpretation of CBC data. Current Interpretive Data was last revised on 2018. Testing performed by: [facility], [address] [place] [phone] Monocyte pct 16.6 % [facility] Comment: Interpretive Data Percent cell count reference ranges are not reported, since discordance with absolute values may lead to misinterpretation of CBC data. Current Interpretive Data was last revised on 2018. Testing performed by: [facility], [address] [place] [phone] Eosinophil pct 18.0 % [facility] Comment: Interpretive Data Percent cell count reference ranges are not reported, since discordance with absolute values may lead to misinterpretation of CBC data. Current Interpretive Data was last revised on 2018. Testing performed by: [facility], [address] [place] [phone] Basophil pct 1.3 % [facility] Comment: Interpretive Data Percent cell count reference ranges are not reported, since discordance with absolute values may lead to misinterpretation of CBC data. Current Interpretive Data was last revised on 2018. Testing performed by: [facility], [address] [place] [phone] Blood 08/28/2025 9:15 AM CDT 08/28/2025 9:25 AM CDT us Stan Meza MD LAB BLOOD ORDERABLES Yolette l Result [facility] Department [place] [address] * (ABNORMAL) CBC with auto differential (08/28/2025 9:15 AM CDT) WBC 4.52 3.80 - 9.90 K/cumm Comment:Testing performed by : [facility], [address] [place] [phone] Hgb 10.5(L) 13.0 - 17.5 g/dL [facility] Comment:Testing performed by : [facility], [address] [place], [place] [phone] Hct 32.5(L) 38.9 - 50.3 % [facility] Comment:Testing performed by : [facility], [address] [place], [place] [phone] Plt 219 150 - 400 K/cumm [facility] Comment:Testing performed by : [facility], [address] [place], [place] [phone] MPV 7.4 6.8 - 10.4 fL [facility] Comment:Testing performed by : [facility], [address] [place], [place] [phone] RBC 3.88(L) 4.30 - 5.80 M/cumm [facility] Comment:Testing performed by : [facility], [address] [place], [place] [phone] MCV 83.8 81.3 - 96.4 fL [facility] Comment:Testing performed by : [facility], [address] [place], [place] [phone] MCH 27.0(L) 27.1 - 33.3 pg [facility] Comment:Testing performed by : [facility], [address] [place], [place] [phone] MCHC 32.2(L) 32.3 - 35.7 g/dL [facility] Comment:Testing performed by : [facility], [address] [place], [place] [phone] RDW CV 18.9(H) 11.1 - 14.9 % [facility] Comment:Testing performed by : [facility], [address] [place], [place] [phone] NRBC abs 0.00 0.00 - 0.01 K/cumm [facility] Comment:Testing performed by : [facility], [address] [place], [place] [phone] Blood 08/28/2025 9:15 AM CDT 08/28/2025 9:25 AM CDT Stan Meza MD LAB BLOOD ORDERABLES Yolette banda Result [facility] Department [place] [address] * (ABNORMAL) Comprehensive metabolic panel (08/28/2025 9:15 AM CDT) Sodium 136 135 - 145 mmol/L Potassium, pl 4.2 3.3 - 4.9 mmol/L [facility] Chloride 103 97 - 110 mmol/L [facility] CO2 24 22 - 32 mmol/L [facility] Anion gap 9 2 - 15 mmol/L [facility] BUN 5(L) 6 - 25 mg/dL [facility] Creatinine 0.65(L) 0.80 - 1.30 mg/dL [facility] Glucose 94 70 - 199 mg/dL [facility] Comment: Interpretive Data Fasting glucose >/= 126 [...] 2022. Calcium 9.4 8.5 - 10.3 mg/dL [facility] Bilirubin, total 0.3 0.1 - 1.2 mg/dL [facility] Protein, pl 6.9 6.5 - 8.5 g/dL [facility] Albumin 3.8 3.5 - 5.0 g/dL [facility] Alk phos 121 40 - 130 Units/L [facility] ALT 10 7 - 55 Units/L [facility] AST 16 10 - 50 Units/L [facility] Blood 08/28/2025 9:15 AM CDT 08/28/2025 9:21 AM CDT Stan Meza MD LAB BLOOD ORDERABLES Yolette l Result [facility] Department [place] [address] * eGFR (08/21/2025 9:19 AM CDT) Pathologist [facility] eGFR >90 >=60 mL/min/1. 73 m2 Comment: [...] ORDERABLES Yolette l Result Performing Organization Address City/[facility]/ZIP Co de Phone Number [facility] Department [place] [address] * Differential, auto (08/21/2025 9:19 AM CDT) Pathologist [facility] Neutrophil abs 3.36 1.50 - 6.50 K/cumm Comment:Testing performed by : [facility], [address] [place] [phone] Lymphocyte abs 0.99 0.80 - 3.30 K/cumm [facility] Comment:Testing performed by : [facility], [address] [place] [phone] Monocyte abs 0.68 0.20 - 0.80 K/cumm [facility] Comment:Testing performed by : [facility], [address] [place] [phone] Eosinophil abs 0.02 0.00 - 0.50 K/cumm [facility] Comment:Testing performed by : [facility], [address] [place] [phone] Basophil abs 0.08 0.00 - 0.10 K/cumm [facility] Comment:Testing performed by : [facility], [address] [place] [phone] Neutrophil pct 65.6 % [facility] Comment: Interpretive Data Percent cell count reference ranges are not reported, since discordance with absolute values may lead to misinterpretation of CBC data. Current Interpretive Data was last revised on 2018. Testing performed by: [facility], [address] [place] [phone] Lymphocyte pct 19.3 % [facility] Comment: Interpretive Data Percent cell count reference ranges are not reported, since discordance with absolute values may lead to misinterpretation of CBC data. Current Interpretive Data was last revised on 2018. Testing performed by: [facility], [address] [place] [phone] Monocyte pct 13.3 % [facility] Comment: Interpretive Data Percent cell count reference ranges are not reported, since discordance with absolute values may lead to misinterpretation of CBC data. Current Interpretive Data was last revised on 2018. Testing performed by: [facility], [address] [place] [phone] Eosinophil pct 0.4 % [facility] Comment: Interpretive Data Percent cell count reference ranges are not reported, since discordance with absolute values may lead to misinterpretation of CBC data. Current Interpretive Data was last revised on 2018. Testing performed by: [facility], [address] [place] [phone] Basophil pct 1.5 % [facility] Comment: Interpretive Data Percent cell count reference ranges are not reported, since discordance with absolute values may lead to misinterpretation of CBC data. Current Interpretive Data was last revised on 2018. Testing performed by: [facility], [address] [place] [address] Blood 08/21/2025 9:19 AM CDT 08/21/2025 9:23 AM CDT us Stan Meza MD LAB BLOOD ORDERABLES Yolette banda Result [facility] Department [place] [address] * (ABNORMAL) CBC with auto differential (08/21/2025 9:19 AM CDT) WBC 5.13 3.80 - 9.90 K/cumm Comment:Testing performed by : [facility], [address] [place] [address] Hgb 10.7(L) 13.0 - 17.5 g/dL [facility] Comment:Testing performed by : [facility], [address] [place] [address] Hct 33.5(L) 38.9 - 50.3 % [facility] Comment:Testing performed by : [facility], [address] [place] [address] Plt 237 150 - 400 K/cumm [facility] Comment:Testing performed by : [facility], [address] [place] [address] MPV 7.3 6.8 - 10.4 fL [facility] Comment:Testing performed by : [facility], [address] [place] [address] RBC 3.99(L) 4.30 - 5.80 M/cumm [facility] Comment:Testing performed by : [facility], [address] [place] [address] MCV 83.9 81.3 - 96.4 fL [facility] Comment:Testing performed by : [facility], [address] [place], [place] [phone] MCH 26.8(L) 27.1 - 33.3 pg [facility] Comment:Testing performed by : [facility], [address] [place], [place] [phone] MCHC 31.9(L) 32.3 - 35.7 g/dL [facility] Comment:Testing performed by : [facility], [address] [place] [address] RDW CV 19.7(H) 11.1 - 14.9 % [facility] Comment:Testing performed by : [facility], [address] [place] [address] NRBC abs 0.00 0.00 - 0.01 K/cumm [facility] Comment:Testing performed by : [facility], [address] [place] [address] Blood 08/21/2025 9:19 AM CDT 08/21/2025 9:23 AM CDT Stan Meza MD LAB BLOOD ORDERABLES Yolette l Result Performing Organization Address City/[facility] Co de Phone Number [facility] Department [place] [address] * Phosphorus (08/21/2025 9:19 AM CDT) Phosphorus, pl 2.7 2.3 - 4.5 mg/dL Blood 08/21/2025 9:19 AM CDT 08/21/2025 9:31 AM CDT Stan Meza MD LAB BLOOD ORDERABLES Yolette l Result Performing Organization Address City/[facility] Co de Phone Number [facility] Department [place] [address] * Magnesium (08/21/2025 9:19 AM CDT) Magnesium 1.8 1.4 - 2.5 mg/dL Blood 08/21/2025 9:19 AM CDT 08/21/2025 9:31 AM CDT us Stan Meza MD LAB BLOOD ORDERABLES Yolette l Result [facility] Department [place] [address] * (ABNORMAL) Comprehensive metabolic panel (08/21/2025 9:19 AM CDT) Pathologist [facility] Sodium 137 135 - 145 mmol/L Potassium, pl 4.0 3.3 - 4.9 mmol/L [facility] Chloride 104 97 - 110 mmol/L [facility] CO2 24 22 - 32 mmol/L [facility] Anion gap 9 2 - 15 mmol/L [facility] BUN 6 6 - 25 mg/dL [facility] Creatinine 0.62(L) 0.80 - 1.30 mg/dL [facility] Glucose 137 70 - 199 mg/dL [facility] Comment: Interpretive Data Fasting glucose >/= 126 [...] 2022. Calcium 8.9 8.5 - 10.3 mg/dL [facility] Bilirubin, total 0.6 0.1 - 1.2 mg/dL [facility] Protein, pl 6.8 6.5 - 8.5 g/dL [facility] Albumin 3.9 3.5 - 5.0 g/dL [facility] Alk phos 114 40 - 130 Units/L [facility] ALT 13 7 - 55 Units/L [facility] AST 18 10 - 50 Units/L [facility] Blood 08/21/2025 9:19 AM CDT 08/21/2025 9:31 AM CDT us Stan Meza MD LAB BLOOD ORDERABLES Yolette l Result [facility] Department [place] [address] * CT Chest Abdomen Pelvis W Contrast [...] BLOOD ORDERABLES Yolette banda Result [facility] Department [place] [address] * (ABNORMAL) Differential, auto (07/31/2025 11:17 AM CDT) Neutrophil abs 2.74 1.50 - 6.50 K/cumm Comment:Testing performed by : [facility], [address] [place], [place] [phone] Lymphocyte abs 1.32 0.80 - 3.30 K/cumm [facility] Comment:Testing performed by : [facility], [address] [place] [phone] Monocyte abs 1.04(H) 0.20 - 0.80 K/cumm [facility] Comment:Testing performed by : [facility], [address] [place] [phone] Eosinophil abs 0.19 0.00 - 0.50 K/cumm [facility] Comment:Testing performed by : [facility], [address] [place] [phone] Basophil abs 0.11(H) 0.00 - 0.10 K/cumm [facility] Comment:Testing performed by : [facility], [address] [place] [phone] Neutrophil pct 50.8 % [facility] Comment: Interpretive Data Percent cell count reference ranges are not reported, since discordance with absolute values may lead to misinterpretation of CBC data. Current Interpretive Data was last revised on 2018. Testing performed by: [facility], [address] [place] [phone] Lymphocyte pct 24.4 % [facility] Comment: Interpretive Data Percent cell count reference ranges are not reported, since discordance with absolute values may lead to misinterpretation of CBC data. Current Interpretive Data was last revised on 2018. Testing performed by: [facility], [address] [place] [phone] Monocyte pct 19.3 % [facility] Comment: Interpretive Data Percent cell count reference ranges are not reported, since discordance with absolute values may lead to misinterpretation of CBC data. Current Interpretive Data was last revised on 2018. Testing performed by: [facility], [address] [place] [phone] Eosinophil pct 3.5 % [facility] Comment: Interpretive Data Percent cell count reference ranges are not reported, since discordance with absolute values may lead to misinterpretation of CBC data. Current Interpretive Data was last revised on 2018. Testing performed by: [facility], [address] [place] [phone] Basophil pct 2.0 % [facility] Comment: Interpretive Data Percent cell count reference ranges are not reported, since discordance with absolute values may lead to misinterpretation of CBC data. Current Interpretive Data was last revised on 2018. Testing performed by: [facility], [address] [place] [phone] Blood 07/31/2025 11:1 7 AM CDT 07/31/2025 11:22 AM CDT us Stan Meza MD LAB BLOOD ORDERABLES Yolette veronika Result [facility] Department [place] [address] * (ABNORMAL) CBC with auto differential (07/31/2025 11:17 AM CDT) WBC 5.40 3.80 - 9.90 K/cumm Comment:Testing performed by : [facility], [address] [place] [address] Hgb 10.4(L) 13.0 - 17.5 g/dL [facility] Comment:Testing performed by : [facility], [address] [place] [address] Hct 31.5(L) 38.9 - 50.3 % [facility] Comment:Testing performed by : [facility], [address] [place] [address] Plt 257 150 - 400 K/cumm [facility] Comment:Testing performed by : [facility], [address] [place] [address] MPV 6.9 6.8 - 10.4 fL [facility]DO [facility] Comment:Testing performed by : [facility], [address] [place] [place] [address] RBC 3.97(L) 4.30 - 5.80 M/cumm [facility]ENDIZ Comment:Testing performed by : [facility], [address] [place] [address] MCV 79.5(L) 81.3 - 96.4 fL CERALDO BJ Comment:Testing performed by : [facility], [address] [place] [address] MCH 26.2(L) 27.1 - 33.3 pg CERALDO BJ Comment:Testing performed by : [facility], [address] [place] [address] MCHC 33.0 32.3 - 35.7 g/dL CERALDO BJ Comment:Testing performed by : [facility], [address] [place] [phone] RDW CV 18.4(H) 11.1 - 14.9 % [facility] Comment:Testing performed by : [facility], [address] [place] [address] NRBC abs 0.00 0.00 - 0.01 K/cumm [facility] Comment:Testing performed by : [facility], [address] [place] [address] Blood 07/31/2025 11:1 7 AM CDT 07/31/2025 11:22 AM CDT us Stan Meza MD LAB BLOOD ORDERABLES Yolette banda Result [facility] Department [place] [address] * (ABNORMAL) Comprehensive metabolic panel (07/31/2025 11:17 AM CDT) Sodium 138 135 - 145 mmol/L Potassium, pl 4.3 3.3 - 4.9 mmol/L [facility] Chloride 104 97 - 110 mmol/L [facility] CO2 25 22 - 32 mmol/L [facility] Anion gap 9 2 - 15 mmol/L [facility] BUN 5(L) 6 - 25 mg/dL [facility] Creatinine 0.68(L) 0.80 - 1.30 mg/dL [facility] Glucose 85 70 - 199 mg/dL [facility] Comment: Interpretive Data Fasting glucose >/= 126 [...] 2022. Calcium 9.2 8.5 - 10.3 mg/dL [facility] Bilirubin, total 0.6 0.1 - 1.2 mg/dL [facility] Protein, pl 6.6 6.5 - 8.5 g/dL [facility] Albumin 3.7 3.5 - 5.0 g/dL [facility] Alk phos 118 40 - 130 Units/L [facility] ALT 10 7 - 55 Units/L [facility] AST 16 10 - 50 Units/L [facility] Blood 07/31/2025 11:1 7 AM CDT 07/31/2025 11:28 AM CDT Stan Meza MD LAB BLOOD ORDERABLES Yolette l Result [facility] Department [place] [address] * Hepatitis C antibody Blood (05/29/2025 12:49 PM CDT) Hep C Ab Nonreactive Nonreactive Comment:Antibodies to HCV no t detected. Does NOT exclude the possibility of recent exposure to HCV. Current interpretive data was last revised on 22 Blood 05/29/2025 12:4 9 PM CDT 05/29/2025 1:20 PM CDT Stan Meza MD LAB MICROBIOLOGY - GENERA L ORDERABLES Final Result Performing Organization Address City/[facility]/ZIP Co de Phone Number [facility] Department [place] [address] from Last 3 Months or Most Recently Relevant to Health Maintenance Insurance [facility] Advance Directives For more information, please contact: [phone] * Full Code (Latest Code Status on File) Date Activated Date Inactivated Comments 09/15/2025 9:04 AM 09/16/2025 5:26 AM Care Teams Screen Print Operator Relationship Specialty Start Date End Date Matthew Mccabe MD PCP - General Family Medicine 05/13/24 Stan Meza MD Medical Oncologist/Spanish Linguist Medical Oncology 06/28/24 Natalie Baum NP [address] [place] [address] [place] [address] Nurse Practitioner Family Practice 03/26/25
--- OUTSIDE RECORDS SUMMARY | 2025-10-29 13:30 | XMS_ITS | Encounter Summary ---
Author Organization [facility] Address [address] [place] [address] Care Team Providers Care Crime Victim Specialist Name Role Phone Ian Pollock MD Primary Care Provider [phone] Katina Casiano DO Unavailable [phone] Xavi ACOSTA MD, Jameel R Primary Care Provider + Katina Casiano DO Unavailable [phone] Tracey Ang Unavailable Unavailable Belkis Angel REFRIGERATION PLANT OPERATOR-MINIBUS DRIVER Primary Care Provider + Natalie Baum Primary Care Provider [phone] Reason for Visit * Reason Onset Date Comments Letter 12/02/2020 Encounter Details Date Type Department Care Team (Late st Contact Info) Description 12/02/2020 Telephone [facility] Pulmonary, Critical Care and Sleep Medicine [address] [place] [address] Agnieszka Haas MD [address] [place] [address] Letter Social History Tobacco Use Types Packs/Day Years Used Date Smoking Tobacco: Every Day Cigarettes 1 30 Smokeless Tobacco: Never Alcohol Use Standard Drinks/Week Comments Yes 6 (1 standard drink = 0.6 oz pure alcohol) beer madi. 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 Unable to assess 11/18/2020 1:41 PM PRESS OPERATOR IN[employer]ANT PRINT SHOP documented as of this encounter Functional Status [...] 11/05/2015 3:52 AM Columba Levaitt RN * Does person have difficulty dressing/bathing? [...] vaccine sooner Thanks. Patient Call Back number: [phone] S OPERATOR INSTANT PRINT SHOP documented in this encounter Plan of [...] on filedocumented in this encounter Care Teams Crime Victim Specialist Relationship Specialty Start Date End Date Ian Pollock MD [address] [facility] [place] [address] PCP - General 08/21/20 05/29/23 Jameel Hurley III, MD [address] [facility] [place] [phone] PCP - General Internal Medicine 06/05/23 08/28/23 Belkis Angel APRN-MINIBUS DRIVER [address] [place] [phone] PCP - General Nurse Practitioner 08/29/23 05/05/24 Natalie Baum [address] [place] [address] PCP - General 05/06/24 Katina Casinao DO [address] [facility] INTERNAL [place], [place] Resident - PCP Internal Medicine 08/10/22 05/29/23 Katina Casiano DO [address] [facility] OF [facility] INTERNAL MEDICINE [place], [place] Hospitalist 06/05/23 Tracey Ang PA [address] [facility] [place] [address] Physician Log Cooker 08/15/23 documented as of this encounter
--- OUTSIDE RECORDS SUMMARY | 2025-10-29 13:30 | XMS_ITS | Clinical Summary ---
Author Organization [facility] Address [facility] [place] [address] Care Team Providers Care Supervisor Rides Name Role Phone Natalie Baum LE Primary Care Provider + [phone] Allergies Active Allergy Reactions Criticality Noted Date [...] drink = 0.6 oz pur e alcohol) [facility] Utilities Answer Date Recorded In the past 12 months has e [employer], [employer], oil, or water [employer] threatened to shut off services in your [...] any time in the past 12 m [facility], were you homeless or living in a [...] patient's age to complete this topic Insurance [employer] Advance Directives * Full Code (Latest Code Status on File) Date Activated Date Inactivated Comments 01/20/2025 5:09 AM 01/21/2025 6:55 PM Care Teams Supervisor Rides Relationship Specialty Start Date End Date Natalie Baum NP [address] [place] [address] PCP - General FAMILY PRACTICE 01/19/25
--- OUTSIDE RECORDS SUMMARY | 2025-10-29 13:30 | XMS_ITS | Encounter Summary ---
Author Organization [facility] Address [address] [facility] [place] [address] Care Team Providers Care Hand Wood Sander Name Role Phone Ian Pollock MD Primary Care Provider [phone] Katina Casiano DO Unavailable [phone] Xavi ACOSTA MD, Jameel Gaviria Primary Care Provider + Katina Casiano DO Unavailable [phone] Tracey Ang Unavailable Unavailable Belkis Angel ELECTRICAL MECHANIC-CODING TECH Primary Care Provider + Natalie Baum Primary Care Provider [phone] Encounter Details Date Type Department Care Team (Late st Contact Info) Description 03/03/2022 Telephone [facility] [address] [place] [address] Alvarez Duarte MD [address] [address] Social History Tobacco Use Types Packs/Day Years [...] on file 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 BOX SPINNER Gender Identity Not on file Sexual Orientation [...] pm. He is having transportation issues med Private Outlet does not run that late. He will call back to schedule when he can figure out his transportation. Please cancel this appt for him. Patient Call Back number: [phone] documented in this encounter Plan of Treatment [...] filedocumented in this encounter Care Teams Hand Wood Sander Relationship Specialty Start Date End Date Ian Pollock MD [address] OF [facility] [place] [address] PCP - General 08/21/20 05/29/23 Jameel Hurley III, MD [address] [facility] OF [facility] [place] [phone] PCP - General Internal Medicine 06/05/23 08/28/23 Belkis Angel APRN-CODING TECH [address] [place] [phone] PCP - General Nurse Practitioner 08/29/23 05/05/24 Natalie Baum [address] [place] [address] PCP - General 05/06/24 Katina Casiano DO [address] [facility] OF [facility] INTERNAL [place]IC[place], [place] Resident - PCP Internal Medicine 08/10/22 05/29/23 Katina Casiano DO [address] [facility] OF [facility] INTERNAL [place]IC[place], [place] Hospitalist 06/05/23 Tracey Ang PA [address] [facility] [place] [address] Physician Rolling Attendant 08/15/23 documented as of this encounter
--- OUTSIDE RECORDS SUMMARY | 2025-10-29 13:30 | XMS_ITS | Encounter Summary ---
Author Organization [facility] Address [facility] [place] [address] Care Team Providers Care Prepared Foods Service Team Member Name Role Phone Amilcar Osorio MD Primary Care Provider [phone] Monica Tellez NP Primary Care Provider [phone] Natalie Baum DEPARTMENT OPERATIONS MANAGER Primary Care Provider + [phone] Encounter Details Date Type Department Care Team (Late st Contact Info) Description 04/09/2018 Hosp Visit [facility] Outpatient Therapy [facility] [address] [place], [place] [address] Grecia Hess, [place] [address] Social History Tobacco Use Types Packs/Day Years [...] on filedocumented in this encounter Care Teams Prepared Foods Service Team Member Relationship Specialty Start Date End Date Amilcar Osorio MD [address], [address] [address] PCP - General 05/01/17 09/04/19 Monica Tellez DEPARTMENT OPERATIONS MANAGER [address] [address] PCP - General NURSE PRACTITIONER 09/05/19 01/18/25 Natalie Baum NP [address] [place] [address] PCP - General FAMILY PRACTICE 01/19/25 documented as of this encounter
--- OUTSIDE RECORDS SUMMARY | 2025-10-29 13:30 | XMS_ITS | Encounter Summary ---
Author Organization [facility] Address [address] [place] [address] Phone Care Team Providers Care Medical Radiation Therapist Name Role Phone Matthew Mccabe MD Primary Care Prov ider Stan Meza MD Unavailable [phone] Natalie Baum NP Unavailable [phone] Encounter Details Date Type Department Care Team (Late st Contact Info) Description 10/28/2025 Telephone [facility] On[facility] [address] [place] [address] Janice Kilgore CMA Social History Tobacco Use [...] on file 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 Pt is agreeable to this plan. ITURE DETAILER documented in this encounter Plan of Treatment Not on file documented as of this encounter Visit Diagnoses Not on filedocumented in this encounter Care Teams Medical Radiation Therapist Relationship Specialty Start Date End Date Matthew Mccabe MD PCP - General Family Medicine 05/13/24 Stan Meza MD Medical Oncologist/Crystal Calibrator Medical Oncology 06/28/24 Natalie Baum NP [address] [place] [address] [place] [address] Nurse Practitioner Family Practice 03/26/25 documented as of this encounter
--- OUTSIDE RECORDS SUMMARY | 2025-10-29 13:30 | XMS_ITS | Encounter Summary ---
Author Organization [facility] Address [address] [facility] [place] [address] Care Team Providers Care Theatre Director Name Role Phone Ian Pollock MD Primary Care Provider [phone] Katina Casiano DO Unavailable [phone] Xavi ACOSTA MD, Jameel R Primary Care Provider + Katina Casiano DO Unavailable [phone] Tracey Ang Unavailable Unavailable Belkis Angel SUPERVISOR UNLOADING-CLINICAL REHABILITATION SPECIALIST Primary Care Provider + Natalie Baum Primary Care Provider [phone] Reason for Visit * Reason Onset Date Comments Refill Request 04/13/2021 Encounter Details Date Type Department Care Team (Late st Contact Info) Description 04/13/2021 Telephone [facility] [address] [place], [place] [id number] Ian Pollock MD [address] [place] [address] Refill Request Social History Tobacco Use Types Packs/Day Years Used Date Smoking Tobacco: Every Day Cigarettes 1 30 Smokeless Tobacco: Never Alcohol Use Standard Drinks/Week Comments Yes 6 (1 standard drink = 0.6 oz pure alcohol) beer madi. 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 Patient Call Back number: [phone] documented in this encounter Plan of Treatment [...] sciatica documented in this encounter Care Teams Theatre Director Relationship Specialty Start Date End Date Ian Pollock MD [address] OF [facility] [place] [address] PCP - General 08/21/20 05/29/23 Jameel Hurley III, MD [address] [facility] OF [facility] [place] [phone] PCP - General Internal Medicine 06/05/23 08/28/23 Belkis Angel, SUPERVISOR UNLOADING-CLINICAL REHABILITATION SPECIALIST [address] [place] [address] [address] [place] [address] PCP - General Nurse Practitioner 08/29/23 05/05/24 Natalie Baum [address] [place] [address] PCP - General 05/06/24 Katina Casiano DO [address] [facility] INTERNAL MEDICINE [place], [place] Resident - PCP Internal Medicine 08/10/22 05/29/23 Katina Casiano DO [address] DIV OF [facility] INTERNAL MEDICINE [place], [place] Hospitalist 06/05/23 Tracey Ang PA [address] [facility] [facility] [place] [address] Physician Asset Protection Officer 08/15/23 documented as of this encounter
--- OUTSIDE RECORDS SUMMARY | 2025-10-29 13:30 | XMS_ITS | Encounter Summary ---
Author Organization [facility] Address [address] [facility] [place] [address] Care Team Providers Care Carpenter Streetcar Name Role Phone Monica Tellez ONLINE RETAILER-FINANCIAL DEALERS Primary Care Provi cristobal Ian Pollock MD Primary Care Provider [phone] Ian Pollock MD Primary Care Provider [phone] Ian Pollock MD Primary Care Provider [phone] Ian Pollock MD Primary Care Provider [phone] Ian Pollock MD Primary Care Provider [phone] Katina Casiano DO Unavailable Xavi ACOSTA MD, Fred R Primary Care Provider + Katina Casiano DO Unavailable [phone] Tracey Ang Unavailable Unavailable Belkis Angel ONLINE RETAILER-FINANCIAL DEALERS Primary Care Provider + Natalie Baum Primary Care Provider [phone] Reason for Visit * Reason Onset Date Comments Appointment 09/11/2019 Encounter Details Date Type Department Care Team (Late st Contact Info) Description 09/11/2019 Telephone [facility] General Internal Medicine [address] [address] Monica Tellez, ONLINE RETAILER-FINANCIAL DEALERS [address] [facility] [address] [facility] [place] [address] Appointment Social History Tobacco Use Types Packs/Day [...] on file 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 Gender Identity Not on file Sexual [...] disconnected Called again warm transfer to scheduling YER HAND documented in this encounter Plan of [...] on filedocumented in this encounter Care Teams Carpenter Streetcar Relationship Specialty Start Date End Date Monica Tellez, ONLINE RETAILER-FINANCIAL DEALERS PCP - General 07/03/19 11/13/19 Ian Pollock MD PCP - General 11/14/19 12/12/19 Ian Pollock MD PCP - General 12/13/19 05/25/20 Ian Pollock MD PCP - General 05/26/20 06/15/20 Ian Pollock MD [address] [facility] OF [facility] [place] [address] PCP - General 07/31/20 08/20/20 Ian Pollock MD [address] [facility] OF [facility] [place] [address] PCP - General 08/21/20 05/29/23 Jameel Hurley III, MD [address] [facility] OF [facility] [place] [address] PCP - General Internal Medicine 06/05/23 08/28/23 Belkis Angel, ONLINE RETAILER-FINANCIAL DEALERS [address] [facility] 2[address] [place] [address] PCP - General Nurse Practitioner 08/29/23 05/05/24 Natalie Baum [address] [place] [address] PCP - General 05/06/24 Katina Casiano DO [address] [facility] OF [facility] INTERNAL MEDICINE [place], [place] Resident - PCP Internal Medicine 08/10/22 05/29/23 Katina Casiano DO [address] [facility] OF [facility] INTERNAL MEDICINE [place], [place] Hospitalist 06/05/23 Tracey Ang PA [address] [facility] OF [facility] [place] [address] Physician Monogram Technician 08/15/23 documented as of this encounter
--- OUTSIDE RECORDS SUMMARY | 2025-10-29 13:30 | XMS_ITS | Encounter Summary ---
Author Organization [facility] Address [facility] [place] [address] Care Team Providers Care Group Captain Name Role Phone Amilcar Osorio MD Primary Care Provider [phone] Monica Tellez NP Primary Care Provider [phone] Natalie Baum BULLET MAKER Primary Care Provider + [phone] Encounter Details Date Type Department Care Team (Late st Contact Info) Description 04/02/2018 Hosp Visit [facility] Outpatient Therapy [facility] [address] [place], [place] [address] Grecia Hess, [place] [address] Social History Tobacco Use Types Packs/Day Years [...] filedocumented in this encounter Care Teams Group Captain Relationship Specialty Start Date End Date Amilcar Osorio MD [address], [address] [address] PCP - General 05/01/17 09/04/19 Monica Tellez BULLET MAKER [address] [address] PCP - General NURSE PRACTITIONER 09/05/19 01/18/25 Natalie Baum NP [address] [place] [address] PCP - General FAMILY PRACTICE 01/19/25 documented as of this encounter
--- OUTSIDE RECORDS SUMMARY | 2025-10-29 13:30 | XMS_ITS | Encounter Summary ---
Author Organization 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
--- OUTSIDE RECORDS SUMMARY | 2025-10-29 13:30 | XMS_ITS | Encounter Summary ---
Author Organization [facility] Address [address] [facility] [place] [address] Care Team Providers Care Paralegal Legal Secretary Name Role Phone Monica Tellez SEGMENT ASSEMBLER-SUPERVISOR WRAPPING ROOM Primary Care Provi cristobal Ian Pollock MD Primary Care Provider [phone] Ian Pollock MD Primary Care Provider [phone] Ian Pollock MD Primary Care Provider [phone] Ian Pollock MD Primary Care Provider [phone] Ian Pollock MD Primary Care Provider [phone] Katina Casiano DO Unavailable [phone] Xavi ACOSTA MD, Fred R Primary Care Provider + Katina Casiano DO Unavailable [phone] Tracey Ang Unavailable Unavailable Belkis Angel SEGMENT ASSEMBLER-SUPERVISOR WRAPPING ROOM Primary Care Provider + Natalie Baum Primary Care Provider [phone] Reason for Visit * Reason Onset Date Comments Results 10/25/2019 Encounter Details Date Type Department Care Team (Late st Contact Info) Description 10/25/2019 Telephone [facility] General Internal Medicine [address] [address] Moinca Tellez, SEGMENT ASSEMBLER-SUPERVISOR WRAPPING ROOM [address] [facility] [place] [address] Results Social History Tobacco Use Types Packs/Day [...] on file 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 This TNs. Found HCTTE 2D w/Con Doppler/color CMPT Done 10/25/2019, in chart under Cardiac tab, Faxed to [facility]. Pt request callback: [phone]. Pt seems very nervous about his results. K SORTER * Telephone Encounter - Monica Tellez APRN-CNP - 10/25/2019 1:56 PM BRICK SORTER Please find out what ultrasound he had. Have not ultrasound results. Who would have ordered this and where?? Monica Gavin [facility] Tellez K SORTER * Telephone Encounter - Maria Isabel William RN - 10/25/2019 1:47 PM CST Patient nervous about ultrasound result Please call [phone] K SORTER documented in this encounter Plan of Treatment [...] on filedocumented in this encounter Care Teams Paralegal Legal Secretary Relationship Specialty Start Date End Date Monica Tellez APRN-CNP PCP - General 07/03/19 11/13/19 Ian Pollock MD PCP - General 11/14/19 12/12/19 Ian Pollock MD PCP - General 12/13/19 05/25/20 Ian Pollock MD PCP - General 05/26/20 06/15/20 Ian Pollock MD [address] [facility] OF [facility] [place] [address] PCP - General 07/31/20 08/20/20 Ian Pollock MD [address] [facility] OF [facility] [place] [address] PCP - General 08/21/20 05/29/23 Jameel Hurley III, MD [address] [facility] OF [facility] [place] [address] PCP - General Internal Medicine 06/05/23 08/28/23 Belkis Angel, SEGMENT ASSEMBLER-SUPERVISOR WRAPPING ROOM [address] [place] [phone] PCP - General Nurse Practitioner 08/29/23 05/05/24 Natalie Baum [address] [place] [address] PCP - General 05/06/24 Katina Casiano DO [address] DIV OF [facility] INTERNAL MEDICINE [place], [place] Resident - PCP Internal Medicine 08/10/22 05/29/23 Katina Casiano DO [address] [facility] OF [facility] INTERNAL MEDICINE [place], [place] Hospitalist 06/05/23 Tracey Ang PA [address] [facility] OF [facility] [place] [address] Physician Drop Wire Hanger 08/15/23 documented as of this encounter
--- OUTSIDE RECORDS SUMMARY | 2025-10-29 13:30 | XMS_ITS | Encounter Summary ---
Author Organization [facility] Address [address] [place] [address] Care Team Providers Care Centura Technical Lead Senior Developer Name Role Phone Ian Pollock MD Primary Care Provider [phone] Ian Pollock MD Primary Care Provider [phone] Ian Pollock MD Primary Care Provider [phone] Ian Pollock MD Primary Care Provider [phone] Katina Casiano DO Unavailable [phone] Xavi ACOSTA MD, Fred R Primary Care Provider + Katina Casiano DO Unavailable [phone] Tracey Ang PA Unavailable Unavailable Belkis Angel FISHERY BIOLOGIST-RUN LEAD Primary Care Provider + Natalie Baum Primary Care Provider [phone] Reason for Visit * Reason Onset Date Comments Referral 12/13/2019 Encounter Details Date Type Department Care Team (Late st Contact Info) Description 12/13/[address] 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 Pollock will be going to very part-time in March, but patient apprised this TNs thathe had called for a more current appointment, and is to see Dr. Pollock today. ENG FARMER * Telephone Encounter - Monica Tellez APRN-CNP - 12/16/2019 4:30 PM GINSENG FARMER Do not know any linoleum printer on [facility]. He will need to call his insurance company for list of [place] linoleum printer. His appt was to be changed from Dr Pollock to a resident since Dr Pollock will be going to very geography department chair in March and should not have new patients. MARISOL Díaz ENG FARMER * Telephone Encounter - Janice Conn RN - 12/13/2019 10:45 AM GINSENG FARMER Routing message to Dr Pollock ENG FARMER * Telephone Encounter - Meenu Hidalgo - 12/13/2019 10:36 AM CST PT is calling and wanting to be referred to a linoleum printer on the [facility]. PT stats it wouldbe more convenient and easier for the med cab. PT CBN:[phone] ENG FARMER documented in this encounter Plan of Treatment [...] on filedocumented in this encounter Care Teams Centura Technical Lead Senior Developer Relationship Specialty Start Date End Date Ian Pollock MD PCP - General 12/13/19 05/25/20 Ian Pollock MD PCP - General 05/26/20 06/15/20 Ian Pollock MD [address] [place] [address] PCP - General 07/31/20 08/20/20 Ian Pollock MD [address] DIV OF [facility] [place] [address] PCP - General 08/21/20 05/29/23 Jameel Hurley III, MD [address] DIV OF [facility] [place] [phone] PCP - General Internal Medicine 06/05/23 08/28/23 Belkis Angel, FISHERY BIOLOGIST-RUN LEAD [address] [place] [phone] PCP - General Nurse Practitioner 08/29/23 05/05/24 Natalie Baum [address] [place] [address] PCP - General 05/06/24 Katina Casiano DO [address] DIV OF [facility] INTERNAL MEDICINE [place], [place] Resident - PCP Internal Medicine 08/10/22 05/29/23 Katina Casiano DO [address] DIV OF [facility] INTERNAL MEDICINE [place], [place] Hospitalist 06/05/23 Tracey Ang PA [address] DIV OF [facility] [place] [address] Physician Track Laying Supervisor 08/15/23 documented as of this encounter
--- OUTSIDE RECORDS SUMMARY | 2025-10-29 13:30 | XMS_ITS | Encounter Summary ---
Author Organization [facility] Address [facility] [place] [address] Care Team Providers Care Canning Machine Operator Name Role Phone Amilcar Osorio MD Primary Care Provider [phone] Monica Tellez NP Primary Care Provider [phone] Natalie Baum TEAM DRIVER Primary Care Provider + [phone] Encounter Details Date Type Department Care Team (Late st Contact Info) Description 07/03/2018 Abstract [facility] Multispecialty [facility] - [facility] [address] [facility] [place] [address] Gina Fleming APNP [address] [place] [address] Social History Tobacco Use Types Packs/Day Years [...] on filedocumented in this encounter Care Teams Canning Machine Operator Relationship Specialty Start Date End Date Amilcar Osorio MD [address] [facility], [address] [address] PCP - General 05/01/17 09/04/19 Monica Tellez NP [address] [place] [address] PCP - General NURSE PRACTITIONER 09/05/19 01/18/25 Natalie Baum NP [address] [place] [address] PCP - General FAMILY PRACTICE 01/19/25 documented as of this encounter
--- OUTSIDE RECORDS SUMMARY | 2025-10-29 13:30 | XMS_ITS | Encounter Summary ---
Author Organization [facility] Address [address] [address] [place] [address] Care Team Providers Care Senior Audit Manager Name Role Phone Monica Tellez CASHIER PAYMENTS RECEIVED-DIRECTOR OF ENGINEERING Primary Care Provi cristobal Ian Pollock MD Primary Care Provider [phone] Ian Pollock MD Primary Care Provider [phone] Ian Pollock MD Primary Care Provider [phone] Ian Pollock MD Primary Care Provider [phone] Ian Pollock MD Primary Care Provider [phone] Katina Casiano DO Unavailable [phone] Xavi ACOSTA MD, Fred R Primary Care Provider + Katina Casiano DO Unavailable [phone] Tracey Ang Unavailable Unavailable Belkis Angel CASHIER PAYMENTS RECEIVED-DIRECTOR OF ENGINEERING Primary Care Provider + Natalie Baum Primary Care Provider [phone] Reason for Visit * Reason Onset Date Comments General 11/12/2019 Encounter Details Date Type Department Care Team (Late st Contact Info) Description 11/12/2019 Telephone [facility] General Internal Medicine [address] [place] [id number] Monica Tellez, CASHIER PAYMENTS RECEIVED-DIRECTOR OF ENGINEERING [address] [facility] [place] [place] [address] General Social History Tobacco Use Types Packs/Day [...] on file 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 He was upset that I told him to ask his pulmonary doctor to order low dose CT since pulmonary was the one who usually ordered this. MARISOL Díaz FISHER * Telephone Encounter - Nadeem Hancock - 11/12/2019 1:07 PM CST Pt called to request to be released from the provider's care. Caller stated that the provider has done a couple of things to rub him the wrong way, and he would like another provider. Pt provided call back number [phone] Message routed to provider for review and assistance FISHER documented in this encounter Plan of Treatment [...] filedocumented in this encounter Care Teams Senior Audit Manager Relationship Specialty Start Date End Date Monica Tellez APRN-DIRECTOR OF ENGINEERING PCP - General 07/03/19 11/13/19 Ian Pollock MD PCP - General 11/14/19 12/12/19 Ian Pollock MD PCP - General 12/13/19 05/25/20 Ian Pollock MD PCP - General 05/26/20 06/15/20 Ian Pollock MD [address] [place] [address] PCP - General 07/31/20 08/20/20 Ian Pollock MD [address] [place] [address] PCP - General 08/21/20 05/29/23 Jameel Hurley III, MD [address] DIV OF [facility] [place] [phone] PCP - General Internal Medicine 06/05/23 08/28/23 Belkis Angel, CASHIER PAYMENTS RECEIVED-DIRECTOR OF ENGINEERING [address] [phone] PCP - General Nurse Practitioner 08/29/23 05/05/24 Natalie Baum [address] [place] [address] PCP - General 05/06/24 Katina Casiano DO [address] DIV OF [facility] INTERNAL MEDICINE [place], [place] Resident - PCP Internal Medicine 08/10/22 05/29/23 Katina Casiano DO [address] DIV OF [facility] INTERNAL MEDICINE [place], [place] Hospitalist 06/05/23 Tracey Ang PA [address] DIV OF [facility] [place] [address] Physician Satellite Installer 08/15/23 documented as of this encounter
--- OUTSIDE RECORDS SUMMARY | 2025-10-29 13:30 | XMS_ITS | Encounter Summary ---
Author Organization [facility] Address [address] [place] [address] Care Team Providers Care Car Coupler Name Role Phone Ian Pollock MD Primary Care Provider [phone] Katina Casiano DO Unavailable [phone] Xavi ACOSTA MD, Jameel R Primary Care Provider + Katina Casiano DO Unavailable [phone] Tracey Ang PA Unavailable Unavailable Belkis Angel MATERIALS AND CORROSION ENGINEER-COMPONENTS ENGINEER Primary Care Provider + Natalie Baum Primary Care Provider [phone] Encounter Details Date Type Department Care Team (Late st Contact Info) Description 02/18/2022 Telephone [facility] Pulmonary, Critical Care and Sleep Medicine [address] [place] [phone] Agnieszka Haas MD [address] [place] [address] Social History Tobacco Use Types Packs/Day Years [...] on file 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 Patient Call Back number: [phone] documented in this encounter Plan of Treatment [...] filedocumented in this encounter Care Teams Car Coupler Relationship Specialty Start Date End Date Ian Pollock MD [address] DIV [place] [address] PCP - General 08/21/20 05/29/23 Jameel Hurley III, MD [address] DIV OF [facility] [place] [phone] PCP - General Internal Medicine 06/05/23 08/28/23 Belkis Angel, MATERIALS AND CORROSION ENGINEER-COMPONENTS ENGINEER [address] [phone] PCP - General Nurse Practitioner 08/29/23 05/05/24 Natalie Baum [address] [place] [address] PCP - General 05/06/24 Katina Casiano DO [address] DIV OF [facility] INTERNAL MEDICINE [place], [place] Resident - PCP Internal Medicine 08/10/22 05/29/23 Katina Casiano DO [address] DIV OF [facility] INTERNAL MEDICINE [place], [place] Hospitalist 06/05/23 Tracey Ang PA [address] DIV OF [facility] [place] [address] Physician Gun Fitter 08/15/23 documented as of this encounter
--- OUTSIDE RECORDS SUMMARY | 2025-10-29 13:30 | XMS_ITS | Encounter Summary ---
Author Organization [facility] Address [address] [facility] [place] [address] Care Team Providers Care Point Of Care Technician Name Role Phone Ian Pollock MD Primary Care Provider [phone] Ian Pollock MD Primary Care Provider [phone] Ian Pollock MD Primary Care Provider [phone] Ian Pollock MD Primary Care Provider [phone] Katina Casiano DO Unavailable [phone] Xavi ACOSTA MD, Jameel R Primary Care Provider + Katina Casiano DO Unavailable [phone] Tracey Ang PA Unavailable Unavailable Belkis Angel FLUOROSCOPE OPERATOR-CHANGE MANAGEMENT DIRECTOR Primary Care Provider + Natalie Baum Primary Care Provider [phone] Reason for Visit * Reason Onset Date Comments MEDICATION REFILL 05/05/2020 Encounter Details Date Type Department Care Team (Late st Contact Info) Description 05/05/2020 Refill [facility] Pulmonary, Critical Care and Sleep Medicine [address] [place] [address] Agnieszka Haas MD [address] [place] [address] MEDICATION REFILL Social History Tobacco Use Types [...] on file 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 Gender Identity Not on file Sexual [...] on filedocumented in this encounter Care Teams Point Of Care Technician Relationship Specialty Start Date End Date Ian Pollock MD PCP - General 12/13/19 05/25/20 Ian Pollock MD PCP - General 05/26/20 06/15/20 Ian Pollock MD [address] DIV OF [facility] [place] [address] PCP - General 07/31/20 08/20/20 Ian Pollock MD [address] DIV OF [facility] [place] [address] PCP - General 08/21/20 05/29/23 Jameel Hurley III, MD [address] DIV OF [facility] [place] [phone] PCP - General Internal Medicine 06/05/23 08/28/23 Belkis Angel, FLUOROSCOPE OPERATOR-CHANGE MANAGEMENT DIRECTOR [address] [place] [phone] PCP - General Nurse Practitioner 08/29/23 05/05/24 Natalie Baum [address] [place] [address] PCP - General 05/06/24 Katina Casiano DO [address] [facility] OF [facility] INTERNAL MEDICINE [place], [place] Resident - PCP Internal Medicine 08/10/22 05/29/23 Katina Casiano DO [address] [facility] OF [facility] INTERNAL MEDIC[place], [place] Hospitalist 06/05/23 Tracey Ang PA [address] [facility] OF [facility] [place] [address] Physician Residential Program Director 08/15/23 documented as of this encounter
--- OUTSIDE RECORDS SUMMARY | 2025-10-29 13:30 | XMS_ITS | Encounter Summary ---
Author Organization [facility] Address [address] [place] [address] Phone Care Team Providers Care Medical Care Evaluation Specialist Name Role Phone Matthew Mccabe MD Primary Care Prov ider Stan Meza MD Unavailable [phone] Natalie Baum NP Unavailable [phone] Encounter Details Date Type Department Care Team (Late st Contact Info) Description 10/28/2025 Documentation [facility] Medicine Oncology [address] [facility] Floor [address] [place] [address] Sarah Brunner LCSW Social History [...] on file 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 Transportation has been arranged for: DATE: 11/06 PICK-UP TIME: 730am PICK-UP TIME FOR RETURN TRIP: Will call TRIP NUMBER: [id number] CONTACT TELEPHONE #: [phone] Patient is aware of these arrangements and in agreement with plan. 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
[2025-10-29 13:38] LABS: INR 1.2; Prothrombin Time 15.3 Seconds (11.1-14.7)
[2025-10-29 13:39] LABS: Partial Thromboplastin Time 28.5 Seconds (22.3-36.8)
[2025-10-29 13:58] LABS: Influenza A QL RT-PCR Negative (Negative); Influenza B QL RT-PCR Negative (Negative); RSV RNA, RT-PCR Negative (Negative); SARS-CoV-2 RNA PCR Negative (Negative)
[2025-10-29 15:09] LABS: Alanine Aminotransferase 18 U/L (6-50); Albumin Level 3.9 g/dL (3.5-5.1); Alkaline Phosphatase 111 U/L (38-126); Anion Gap 3 mmol/L (4-12); Aspartate Amino Transferase 21 U/L (17-59); Bilirubin,Total 0.4 mg/dL (0.2-1.3); Blood Urea Nitrogen 12 mg/dL (9-20); Calcium 9.6 mg/dL (8.4-10.2); Carbon Dioxide 29 mmol/L (22-30); Chloride 98 mmol/L (98-107); Estimated Glomerular Filt Rate > 60; Glucose 107 mg/dL (65-110); Magnesium 1.6 mg/dL (1.6-2.3); Potassium 4.0 mmol/L (3.4-5.0); Sodium 130 mmol/L (137-145); Total Protein 7.2 g/dL (6.3-8.2)
[2025-10-29 15:20] LABS: Troponin I < 0.012 ng/mL (0.000-0.034)
[2025-10-29] MEDS: ACETAMINOPHEN 500 MG TABLET 1000 MG PO (15:47)
[2025-10-29] MEDS: METOCLOPRAMIDE HCL INJ 10 MG/2 ML VIAL IV PUSH (15:50)
[2025-10-29 15:51] LABS: NT Pro B Type Natriuretic Pept 1600 pg/mL (19.9-100)
[2025-10-29] MEDS: SODIUM CHLORIDE 0.9% IV 500 ML 999 ML IV CONT (16:03)
[2025-10-29] MEDS: MAGNESIUM SULF 1 GM/D5W 100 ML 1 GM/100 ML BAG IVPB (16:08)
[2025-10-29] MEDS: KETOROLAC 15 MG/ML VIAL (*BKC) IV PUSH (16:09)
== END 2025-10-29 17:35 | disposition home or self-care (01) ==
PROVIDERS: Physician Assistant; Emergency Provider Student in an Organized Health Care Education/Training Program; PCP Family Medicine Adolescent Medicine
DX: J96.11 Chronic respiratory failure with hypoxia (principal); Z99.81 Dependence on supplemental oxygen; C34.90 Malignant neoplasm of unspecified part of unspecified bronchus or lung; J18.9 Pneumonia, unspecified organism; D64.9 Anemia, unspecified; R51.9 Headache, unspecified; E87.1 Hypo-osmolality and hyponatremia; J43.9 Emphysema, unspecified; R79.89 Other specified abnormal findings of blood chemistry; J84.9 Interstitial pulmonary disease, unspecified; Z20.822 Contact with and (suspected) exposure to COVID-19; I48.0 Paroxysmal atrial fibrillation; I34.0 Nonrheumatic mitral (valve) insufficiency; I11.9 Hypertensive heart disease without heart failure; H40.9 Unspecified glaucoma; F32.A Depression, unspecified; F41.9 Anxiety disorder, unspecified; F17.210 Nicotine dependence, cigarettes, uncomplicated; Z96.651 Presence of right artificial knee joint; Z92.21 Personal history of antineoplastic chemotherapy; Z79.60 Long term (current) use of unspecified immunomodulators and immunosuppressants; Z79.01 Long term (current) use of anticoagulants
CPT/HCPCS: 36415; 70450; 71045; 71275; 74177; 80053; 83605; 83735; 83880; 84484; 85025; 85610; 85730; 87637; 93005; 96365; 96375; 99284; A9270; J1200; J1885; J2765; J3475; J7040; J8540; Q9967